=== PATIENT | female | born 1965 | race Caucasian/White ===

== ENCOUNTER → 2016-06-16 | Outpatient (CLI) | payer MEDICARE ==
[~2016-06-16] MED LIST: ATR20T PO; BUDE6HFA IH; CYCL10TA9 PO; DIAZ10TA3 PO; FISH1200 PO; HYDR-2890 PO; MELA1TAB11 PO; METO25TA2 PO; MILN100T PO; ONDAN4ODT PO; PANT40TA PO; QTP100T PO; REMICADE IV; RT-ALBUINH IH; TRZ100T PO; VALE1POW MC; VENL150C PO
--- OUTSIDE RECORDS SUMMARY | 2016-06-16 11:30 | XMS REPORT | Continuity of Care Document ---
Author Author [facility] Organization [facility] Address Unknown Phone Unavailable Care Team Providers Care Crawler Tractor Operator Name Role Phone JOSE RUBALCAVA MD PCP Insurance Providers Payer Name Policy Number Subscriber Name Relationship Wps Medicare [id number] Phil Olmedo 18 Self / Same As Patient Blue Cross [facility] Supp [id number] Phil Olmedo 18 Self / Same As Patient Advance Directives Directive Response Recorded Date/Time Advance Directives No 09/13/15 4:00pm Health Care Power of Dba No 09/13/15 4:00pm Organ Donor No 09/13/15 4:00pm Resuscitation Status Full Code 09/13/15 4:00pm Problems Active Problems Medical Problem Onset Date Status Contusion Unknown Acute skin avulsion Unknown Acute Medications Current Home Medications Medication Dose Units Route Directions Days/Qty Instructions Start Date Cyclobenzaprine Hcl (Flexeril) 10 Mg 1 Each Oral Three Times A Day 0 08/29/13 Venlafaxine Hcl 150 Mg 1 Each Oral Three Times A Day 0 08/29/13 Hydrocodone Bit/Acetaminophen 1 Each 1 Each Oral Four Times Daily for Pain 0 08/29/13 Diazepam 10 Mg 1 Each Oral Three Times A Day for Anxiety 0 08/29/13 Pyridoxine/Melatonin 1 Tab 2 Tab Oral Bedtime 0 08/29/13 Valerian Root 1,000 Gm 1,000 Gm Miscell Daily 0 08/29/13 Pantoprazole Sodium 40 Mg 40 Mg Oral Daily 0 08/29/13 Atorvastatin Calcium 20 Mg 1 Each Oral Daily 0 08/29/13 Metoprolol Tartrate (Lopressor) 25 Mg 0.5 Tab Oral Twice A Day 0 TAKES 1/ 2 OF 25 MG TAB BID (12.5 MG BID) 08/29/13 Milnacipran Hcl 100 Mg 100 Mg Oral Daily 0 08/29/13 Trazodone Hcl 100 Mg 2 Tab Oral Bedtime 0 08/29/13 Quetiapine Fumarate 100 Mg 2 Tab Oral Bedtime 0 08/29/13 Fish Oil/Fat No.8/Hrb Comb.137 1,200 Mg 1,200 Mg Oral Four Times Daily 0 08/29/13 Budesonide/Formoterol Fumarate 10.2 Gm 1 Puff Inhalation Twice A Day 0 08/29/13 Albuterol Sulfate 1 Puff 1 Puff Inhalation Twice A Day 0 08/29/13 [Remicade] Intraven Q 8 Wks 08/29/13 Past Home Medications Medication Directions Ordered Status Ondansetron Hcl 4 Mg Tab, 4 Mg Oral Every 4HRS 06/03/12 Discontinued Social History Social History Problem Response Recorded Date/Time Alcohol Use Denies Use 05/09/2013 2:29am Recreational Drug Use No 05/09/2013 2:29am Recent Foreign Travel No 07/23/2015 1:30pm Smoking Status Never a Smoker 07/23/2015 1:30pm Query Response Start Date Stop Date Smoking Status Never a Smoker Hospital Discharge Instructions No hospital discharge instructions. Plan of Care Prescriptions See Medication Section Functional Status No functional status results. Allergies, Adverse Reactions, Alerts Allergen Type Severity Reaction Status Last Updated Sulfa (Sulfonamide Antibiotics) ([id number]) Allergy Unknown Active Latex Allergy Unknown Active 08/29/13 Immunizations Name Given Type Date of Pneumonia Vaccine 03/07/13 Historical Date of Influenza Vaccine 03/07/13 Historical Vital Signs Acute Vital Signs Vital Response Date/Time Height 5 ft 8 in Weight 204 lb Body Mass Index 31.0 kg/m^2 Results No known relevant diagnostic tests, laboratory data and/or discharge summary. Procedures No known history of procedures. Encounters Encounter Location Arrival/Admit Date Discharge/Depart Date Attending Provider Discharged Recurring [facility] 09/13/15 3:45pm 11:59pm 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
--- NOTE | 2016-06-16 13:24 | Diagnostic Imaging Report ---
PROCEDURE: MR imaging cervical spine without contrast. TECHNIQUE: Multiplanar, multisequence MR imaging of the cervical spine was performed without contrast. INDICATION: Neck pain. FINDINGS: There is satisfactory alignment at the posterior spinal line. The vertebral body heights are preserved. There is disc desiccation at multiple levels. There is normal bone marrow signal seen with no suspicious focal lesion. Minimal chronic appearing reactive changes around the endplate of L5 inferiorly is noted probably secondary to disc degeneration. The foramen magnum is widely patent. The upper spinal canal is widely patent. There is normal signal in the spinal cord. There is multilevel facet joint arthropathy. C2/3: There is minimal disc spur complex with no spinal canal or foraminal stenosis. C3/4: There is a mild disc spur complex with mild central canal stenosis reducing the AP dimension of the canal to 9 mm without cord compression. The foramina demonstrate mild to moderate stenosis on the left and minimal stenosis on the right side. C4/5: There is a spur disc complex seen associated with mild central canal stenosis reducing the AP dimension of the canal to 9.3 mm. No cord compression. The foramina demonstrate moderate stenosis on the left and patent foramen on the right. C5/6: There is a prominent spur disc complex eccentric to the left side and posterior ligamentous hypertrophy, associated with severe spinal canal stenosis reducing the AP dimension of the central canal to 5 mm and associated with moderate cord compression particularly along the left side of the spinal cord. There is no cord signal abnormality however. There is bilateral foraminal stenosis severe on the left and mild on the right side. C6/7: There is prominent spur disc complex and posterior ligamentous hypertrophy with associated moderate to severe spinal canal stenosis. The AP dimension of the central canal is reduced to 6.6 mm. There is minimal cord compression in the central canal and to the left side of the midline. The neural foramina demonstrate severe stenosis of the left and moderate to severe stenosis on the right side. C7/T1: No significant disc herniation, no spinal canal stenosis. There is a suggestion of bilateral moderate foraminal stenosis. IMPRESSION: Multilevel disc and facet degenerative changes worst at C5/6 and C6/7 levels with associated cord compression. No cord signal abnormality. See details above. Report was stat faxed to office of ROMAN Ramos, @ 1:23 PM/jamir. Dictated by: Dictated on workstation # [id number]
== END ==
LOC: RAD 11:26
PROVIDERS: ATTEND Nurse Practitioner Family
DX: M48.02 Spinal stenosis, cervical region (principal)
CPT/HCPCS: 72141

== ENCOUNTER → 2016-07-15 | Outpatient (CLI) | payer MEDICARE ==
--- OUTSIDE RECORDS SUMMARY | 2016-07-15 14:41 | XMS REPORT | Continuity of Care Document ---
Author Author [facility] Organization [facility] Address Unknown Phone Unavailable Care Team Providers Care Pottery Striper Name Role Phone JOSE RUBALCAVA MD PCP Insurance Providers Payer Name Policy Number Subscriber Name Relationship Wps Medicare [id number] Phil Olmedo 18 Self / Same As Patient Blue Cross [facility] Supp [id number] Phil Olmedo 18 Self / Same As Patient Advance Directives Directive Response Recorded Date/Time Advance Directives No 09/13/15 4:00pm Health Care Power of Fruit Dryer No 09/13/15 4:00pm Organ Donor No 09/13/15 [...] Reaction Status Last Updated Sulfa (Sulfonamide Antibiotics) ([id number]) Allergy Unknown Active Latex Allergy Unknown Active [...] Discharge/Depart Date Attending Provider Discharged Recurring [facility] 09/13/15 3:45pm 11:59pm 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
--- NOTE | 2016-07-15 19:00 | Diagnostic Imaging Report ---
Three views of the cervical spine. INDICATION: Fall. Neck pain. FINDINGS: Satisfactory alignment of the cervical spine is seen. The vertebral body heights are preserved. Disc heights are also preserved. Mild anterior osteophytes at the C5-C6 and C6-C7 levels seen. Satisfactory alignment of the lateral masses of C1 and C2 seen. The prevertebral soft tissues appear unremarkable. IMPRESSION: Degenerative anterior osteophytes at the C5-C6 and C6/7 levels. Dictated by: Dictated on workstation # [id number]
== END ==
LOC: RAD 14:36
PROVIDERS: ATTEND Nurse Practitioner Family
DX: S19.9XXA Unspecified injury of neck, initial encounter (principal); M54.2 Cervicalgia; W19.XXXA Unspecified fall, initial encounter; Y99.8 Other external cause status
CPT/HCPCS: 72040

== ENCOUNTER → 2016-07-31 | Outpatient (CLI) | payer MEDICARE ==
--- OUTSIDE RECORDS SUMMARY | 2016-07-31 16:07 | XMS REPORT | Continuity of Care Document ---
Author Author [facility] Organization [facility] Address Unknown Phone Unavailable Care Team Providers Care Funeral Arranger Name Role Phone JOSE RUBALCAVA MD PCP Insurance Providers Payer Name Policy Number Subscriber Name Relationship Wps Medicare [id number] Phil Olmedo 18 Self / Same As Patient Blue Cross [facility] Supp [id number] Phil Olmedo 18 Self / Same As Patient Advance Directives Directive Response Recorded Date/Time Advance Directives No 09/13/15 4:00pm Health Care Power of Edi Programmer No 09/13/15 4:00pm Organ Donor No 09/13/15 [...] Reaction Status Last Updated Sulfa (Sulfonamide Antibiotics) ([id number]) Allergy Unknown Active Latex Allergy Unknown Active [...] Discharge/Depart Date Attending Provider Discharged Recurring [facility] 09/13/15 3:45pm 11:59pm 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
--- NOTE | 2016-07-31 16:50 | Diagnostic Imaging Report ---
Indication: Bilateral ankle pain 3 views of each ankle were obtained. There is no fracture, dislocation or other abnormality seen on either side. Impression: Normal bilateral ankles. Dictated by: Dictated on workstation # [id number]
== END ==
LOC: RAD 16:04
PROVIDERS: ATTEND Nurse Practitioner Family
DX: M25.572 Pain in left ankle and joints of left foot (principal); M25.571 Pain in right ankle and joints of right foot; W19.XXXA Unspecified fall, initial encounter; Y99.8 Other external cause status

== ENCOUNTER → 2016-08-24 | Outpatient (CLI) | payer MEDICARE ==
--- OUTSIDE RECORDS SUMMARY | 2016-08-24 09:55 | XMS REPORT | Continuity of Care Document ---
Author Author [facility] Organization [facility] Address Unknown Phone Unavailable Care Team Providers Care National Sales Executive Name Role Phone JOSE RUBALCAVA MD PCP Insurance Providers Payer Name Policy Number Subscriber Name Relationship Wps Medicare [id number] Phil Olmedo 18 Self / Same As Patient Blue Cross [facility] Supp [id number] Phil Olmedo 18 Self / Same As Patient Advance Directives Directive Response Recorded Date/Time Advance Directives No 09/13/15 4:00pm Health Care Power of Paint Line Production Supervisor No 09/13/15 4:00pm Organ Donor No 09/13/15 [...] Reaction Status Last Updated Sulfa (Sulfonamide Antibiotics) ([id number]) Allergy Unknown Active Latex Allergy Unknown Active [...] Discharge/Depart Date Attending Provider Discharged Recurring [facility] 09/13/15 3:45pm 11:59pm 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
--- NOTE | 2016-08-24 11:43 | Diagnostic Imaging Report ---
PROCEDURE: MRI right joint lower extremity without contrast. TECHNIQUE: Multiplanar, multisequence non contrast-enhanced MRI of the right ankle was accomplished. Indication: Ankle pain after twisting injury. Comparisons: Ankle radiographs of 07/31/2016. Findings: TENDONS: Distal Achilles tendon is normal. There is partial-thickness split longitudinal tear of the peroneus brevis tendon posterior to the lateral malleolus, which is likely chronic in nature as there is no associated peritendinous inflammatory changes. Distal insertion on the base of the fifth metatarsal is normal. The peroneus longus is normal. Posterior tibialis, flexor digitorum longus and flexor hallucis longus tendons are all normal. Anterior extensor tendons of the ankle are normal where visualized. LIGAMENTS: The anterior and posterior inferior tibiofibular ligaments are intact. The anterior talofibular ligament is intact but abnormally thickened, indicative of subacute to chronic injury. Calcaneofibular and posterior talofibular ligaments are normal. The medial collateral ligamentous complex is intact. Spring ligament is normal. BONES AND CARTILAGE: No osteochondral lesion of the talar dome. No fracture or stress fracture. The articular cartilage of the tibiotalar and posterior subtalar joints are normal. SOFT TISSUES: No evidence of plantar fasciitis. No abnormal soft tissue scar/fibrosis within the tarsal canal/sinus tarsi or tarsal tunnel. No ankle joint effusion. There is a very small amount of subcutaneous edema involving both the medial and lateral aspects of ankle. IMPRESSION: 1. The anterior talofibular ligament is intact but thickened, which indicates subacute to chronic injury. No acute ligamentous injury. 2. Short segment of chronic partial-thickness split longitudinal tear of the peroneus brevis at the level of the lateral malleolus. No acute tendinous abnormality about the ankle. 3. No fracture, stress fracture or osseous contusion. Dictated by: Dictated on workstation # [id number]
== END ==
LOC: RAD 09:50
PROVIDERS: ATTEND Nurse Practitioner Family
DX: M25.571 Pain in right ankle and joints of right foot (principal); M25.371 Other instability, right ankle
CPT/HCPCS: 73721

== ENCOUNTER → 2016-09-28 | Outpatient (CLI) | payer MEDICARE ==
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
== END ==
LOC: RAD 13:00
PROVIDERS: ATTEND Pain Medicine Interventional Pain Medicine
DX: M54.16 Radiculopathy, lumbar region (principal)
CPT/HCPCS: 72148

== ENCOUNTER 2016-11-14 19:55 | Outpatient (CLI) | payer MEDICARE | END 2016-11-15 07:29 | disposition home or self-care (01) | LOC: SLEEP 19:55 | PROVIDERS: ATTEND Family Medicine | DX: G47.33 Obstructive sleep apnea (adult) (pediatric) (principal) | CPT/HCPCS: 95811 ==

== ENCOUNTER 2017-04-19 19:31 | Emergency (ER) | payer MEDICARE ==
[~2017-04-19] VITALS: Ht 172.7 cm; Wt 92.5 kg
--- OUTSIDE RECORDS SUMMARY | 2017-04-19 20:02 | XMS REPORT | Continuity of Care Document ---
Author Author [employer] Organization [facility] Address Unknown Phone Unavailable Care Team Providers Care Ship Yard Electrical Person Name Role Phone [employer] Unavailable Unavailable Problems Medications Allergies, Adverse Reactions, Alerts Immunizations Results Vital Signs Encounters Location Location Details Encounter Type Encounter Number Reason For Visit Attending Provider ADM Date DC Date Status Source OUTPATIENT [id number] RADHA HANSON 03/03/2017 Active [facility] OUTPATIENT [id number] RADHA [facility] 03/22/2017 Active [facility] OUTPATIENT [id number] RADHA [facility] 04/09/2017 Active [facility] OUTPATIENT [id number] RADHA HANSON 04/10/20172016 Active [facility] 04/16/2017 Active [facility] OUTPATIENT [id number] 04/16/2017 Active [facility] OUTPATIENT [id number] 04/16/2017 Active [facility] OUTPATIENT [id number] RADHA [facility] 04/16/2017 Active [facility] Procedures Plan of Care Social History Assessment and Plan Family History Value Date Source Advance Directives Order Name Results Value Date Source
--- OUTSIDE RECORDS SUMMARY | 2017-04-19 20:03 | XMS REPORT | Encounter Summary ---
Author Author [facility] Organization [facility] Address Unknown Phone Unavailable Care Team Providers Care Hand Knitter Name Role Phone PCP Unavailable Encounter Details Date Type Department Care Team Description 04/09/2017 Procedure Pass [facility] Radiology [address] [facility] MED [address] [place] [address] Social History Tobacco Use Types Packs/Day Years Used Date Never Smoker Smokeless Tobacco: Never Used Alcohol Use Drinks/Week oz/Week Comments No Sex Assigned at Date Recorded Not on file as of this encounter Plan of Treatment Not on fileas of this encounter Visit Diagnoses Not on filein this encounter
--- OUTSIDE RECORDS SUMMARY | 2017-04-19 20:03 | XMS REPORT | Encounter Summary ---
Author Author [facility] Organization [facility] Address Unknown Phone Unavailable Care Team Providers Care Microsoft Net Developer Name Role Phone PCP Unavailable Encounter Details Date Type Department Care Team Description 04/09/2017 Procedure Pass [facility] Radiology [address] [facility] MED OFF[address] [place] [address] Social History Tobacco Use Types Packs/Day Years Used Date Never Smoker Smokeless Tobacco: Never Used Alcohol Use Drinks/Week oz/Week Comments No Sex Assigned at Date Recorded Not on file as of this encounter Plan of Treatment Not on fileas of this encounter Visit Diagnoses Not on filein this encounter
--- OUTSIDE RECORDS SUMMARY | 2017-04-19 20:03 | XMS REPORT | Encounter Summary ---
Author Author [facility] Organization [facility] Address Unknown Phone Unavailable Care Team Providers Care Screening Specialist Name Role Phone PCP Unavailable Encounter Details Date Type Department Care Team Description 04/09/2017 Procedure Pass [facility] Radiology [address] [place] [address] Social History Tobacco Use Types Packs/Day Years Used Date Never Smoker Smokeless Tobacco: Never Used Alcohol Use Drinks/Week oz/Week Comments No Sex Assigned at Date Recorded Not on file as of this encounter Plan of Treatment Not on fileas of this encounter Visit Diagnoses Not on filein this encounter
--- OUTSIDE RECORDS SUMMARY | 2017-04-19 20:03 | XMS REPORT | Clinical Summary ---
Author Author [facility] Organization [facility] Address Unknown Phone Unavailable Care Team Providers Care Eligibility Analyst Name Role Phone PCP Unavailable Source Comments Some departments are not documenting in the electronic medical record. If you do not see the information that you expected, contact Release of Information in the Health Information Management department at [phone] for further assistance in locating additional records.[facility] Allergies Active Allergy Reactions Severity Noted Date Comments Latex HIVES Medium 04/09/2017 Sulfa (Sulfonamide UNKNOWN Low 04/09/2017 Antibiotics) Current Medications Prescription Sig. Disp. Refills Start End Date Status Date venlafaxine XR (EFFEXOR Take 150 mg by mouth Active XR) 150 mg capsule daily. Take with food. cyclobenzaprine Take 10 mg by mouth three Active (FLEXERIL) 10 mg tablet times daily as needed for Muscle Cramps. HYDROcodone/acetaminophen Take 1 tablet by mouth Active (+) (NORCO) 10/325 mg every 6 hours as needed tablet for Pain diazePAM (VALIUM) 10 mg Take 10 mg by mouth every Active tablet 6 hours as needed for Anxiety. metoprolol tartrate Take 25 mg by mouth twice Active (LOPRESSOR) 25 mg tablet daily. traZODone (DESYREL) 100 Take 100 mg by mouth at Active mg tablet bedtime daily. QUEtiapine (SEROQUEL) 100 Take 100 mg by mouth Active mg tablet twice daily. atorvastatin (LIPITOR) 20 Take 20 mg by mouth Active mg tablet daily. milnacipran(+) (SAVELLA) Take by mouth. Active [address] Take 40 mg by mouth Active (PROTONIX) 40 mg tablet daily. PREDNISONE PO Take by mouth. Active budesonide/formoterol Inhale 2 puffs by mouth Active (SYMBICORT) 160/4.5 mcg into the lungs twice inhalation daily. ACETAMINOPHEN (TYLENOL Take by mouth. Active PO) traMADol (ULTRAM) 50 mg Take 50 mg by mouth every Active tablet 6 hours as needed for Pain. loratadine (CLARITIN) 10 Take 10 mg by mouth every Active mg tablet morning. magnesium oxide (MAG-OX) Take 400 mg by mouth Active 400 mg tablet daily. LACTOBACILLUS ACIDOPHILUS Take by mouth. Active (ACIDOPHILUS PO) INFLIXIMAB (REMICADE IV) Administer through vein. Active niacin ER (NIASPAN) 500 Take 500 mg by mouth Active mg tablet twice daily. Take with food. vitamins, B complex tab Take 1 tablet by mouth Active daily. cyanocobalamin (VITAMIN Inject 1 mL into the Active B-12, RUBRAMIN) 1,000 muscle every 30 days. mcg/mL injection D-MANNOSE PO Take by mouth. Active fish oil- omega 3-DHA/EPA Take 1 capsule by mouth Active 300/1,000 mg capsule daily. cholecalciferol (VITAMIN Take 1,000 Units by mouth Active D-3) 1,000 units tablet daily. calcium carbonate Take 1,250 mg by mouth Active (OS-SHANTE) 260 mg calcium daily. (648 mg) tab MELATONIN PO Take by mouth. Active VALERIAN PO Take by mouth. Active ASCORBATE CALCIUM Take by mouth. 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 Cervical stenosis of spine 04/09/2017 Proximal muscle weakness 04/09/2017 Numbness in feet 04/09/2017 Encounters Date Type Specialty Care Team Description 04/16/2017 [facility]iology Kyrie Larios DO Canceled (Other) Encounter 04/16/2017 [facility] Kyrie Larios DO Arrived Encounter 04/16/2017 [facility] Kyrie Peralta DO Arrived Encounter 04/16/2017 Kyrie Burton DO Unspecified ptosis of Encounter left eyelid 04/10/2017 Kyrie Burton DO Unspecified ptosis of Encounter left eyelid 04/09/2017 Procedure visit Neurology Kyrie Larios DO ERRONEOUS ENCOUNTER--DISREGARD (Primary Dx) 04/09/2017 Office Visit Neurology Kyrie Larios DO Ptosis of left eyelid;Miosis;Cervical stenosis of spine;Proximal muscle weakness;Numbness in feet 04/09/2017 Procedure Pass Radiology 04/09/2017 Procedure Pass Radiology 04/09/2017 Procedure Pass Radiology 04/09/2017 Procedure Pass Radiology 03/19/2017 Orders Only Neurology Kyrie Larios DO Numbness ( Primary Dx) 03/02/2017 Ancillary Radiology Outpatient, Radiologist Diagnosis unknown Orders from Last 3 Months Family History Medical History Relation Name Comments Unknown to Patient Brother Alzheimer's Father Dementia Father Diabetes Father Heart problem Maternal Grandfather Parkinson's Maternal Grandfather Heart problem Maternal Grandmother Hypoglycemia Maternal Grandmother Hypoglycemia Mother Cancer Paternal Grandfather Alzheimer's Paternal Grandmother Dementia Paternal Grandmother Unknown to Patient Sister Unknown to Patient Sister Relation Name Status Comments Brother Alive Father Maternal Grandfather Maternal Grandmother Mother Alive Paternal Grandfather Paternal Grandmother Sister Alive Sister Alive Social History Tobacco Use Types Packs/Day Years Used Date Never Smoker Smokeless Tobacco: Never Used Alcohol Use Drinks/Week oz/Week Comments No Sex Assigned at Date Recorded Not on file Last Filed Vital Signs Vital Sign Reading Time Taken Blood Pressure 125/47 04/09/2017 3:36 PM CDT Pulse 100 04/09/2017 3:36 PM CDT Temperature 37.1 C (98.7 F) 04/09/2017 3:36 PM CDT Respiratory Rate 16 04/09/2017 3:36 PM CDT Oxygen Saturation 93% 04/09/2017 3:36 PM CDT Inhaled Oxygen - - Concentration Weight 91.6 kg (202 lb) 04/09/2017 1:58 PM CDT Height 175.3 cm (5' 9") 04/09/2017 1:58 PM CDT Body Mass Index 29.83 04/09/2017 1:58 PM CDT Plan of Treatment Health Maintenance Due Date Last Done Comments PHYSICAL (COMPREHENSIVE) 08/25/1974 EXAM PERTUSSIS VACCINE 08/25/1978 TETANUS VACCINE 08/25/1984 CERVICAL CANCER SCREENING 08/25/1997 BREAST CANCER SCREENING 2007 INFLUENZA VACCINE 01/05/2017 Results * MRI C-SPINE WO CONTRAST (04/16/2017 6:43 PM) Specimen Performing Laboratory [facility] RES[facility] Impressions 1. Unremarkable MRI of brain. 2. Degenerative disc disease is most notable at C5-6, C6-7. 2. Facet arthrosis most notable on the left side C2-3, C3-4, C4-5, and C7-T1. Because of this and uncovertebral joint hypertrophy, this results in foraminal narrowing as described. Finalized by Chevy Esparza M.D. on 04/19/2017 8:47 AM. Dictated by Chevy Esparza M.D. on 04/19/2017 8:14 AM. Narrative MRI brain and cervical spine Clinical history: Ptosis, miosis, cervical stenosis Comparison study: CT angiogram of same day, MRI cervical spine degeneration 2016 Technique: Multiplanar and multisequence imaging of the brain and cervical spine is obtained without contrast. Findings: Brain: No mass, mass effect, or midline shift is identified. The ventricles and extra-axial spaces are within normal limits. No restricted diffusion is identified to suggest a recent infarct. Cerebellum and brainstem are normal. Vascular flow voids around the [place] normal. Dural contents are also unremarkable. Cervical spine: The cervical vertebral body heights, bone marrow signal, craniocervical junction and cervical cord, epidural spaces, and paraspinous soft tissues are within normal limits. There is slight reversal of normal cervical lordosis. Mild 3 mm anterolisthesis of C4 on C5 is noted from facet arthrosis. There is moderate left-sided facet arthrosis from C2-3 through C4-5 and at C7-T1. C1-C2 C2-3, and C3-4: No spinal stenosis or foraminal narrowing. C4-5: Left facet and uncovertebral joint hypertrophy results in moderate left foraminal narrowing without spinal stenosis. C5-6: Mild disc space narrowing with mild posterior disc osteophyte and left uncovertebral joint hypertrophy results in mild central spinal stenosis and mild left foraminal narrowing. C6-7: Mild disc space narrowing with mild posterior disc osteophyte complex with left uncovertebral joint hypertrophy results in mild central spinal stenosis and left foraminal narrowing. C7-T1: Moderate left uncovertebral joint hypertrophy. No spinal stenosis identified. There is mild left foraminal narrowing. Procedure Note Interface, Radiant Results - 04/19/2017 8:50 AM WELD ENGINEER MRI brain and cervical spine Clinical history: Ptosis, miosis, cervical stenosis Comparison study: CT angiogram of same day, MRI cervical spine degeneration 2017 Technique: Multiplanar and multisequence imaging of the brain and cervical spine is obtained without contrast. Findings: Brain: No mass, mass effect, or midline shift is identified. The ventricles and extra-axial spaces are within normal limits. No restricted diffusion is identified to suggest a recent infarct. Cerebellum and brainstem are normal. Vascular flow voids around the [place] normal. Dural contents are also unremarkable. Cervical spine: The cervical vertebral body heights, bone marrow signal, craniocervical junction and cervical cord, epidural spaces, and paraspinous soft tissues are within normal limits. There is slight reversal of normal cervical lordosis. Mild 3 mm anterolisthesis of C4 on C5 is noted from facet arthrosis. There is moderate left-sided facet arthrosis from C2-3 through C4-5 and at C7-T1. C1-C2 C2-3, and C3-4: No spinal stenosis or foraminal narrowing. C4-5: Left facet and uncovertebral joint hypertrophy results in moderate left foraminal narrowing without spinal stenosis. C5-6: Mild disc space narrowing with mild posterior disc osteophyte and left uncovertebral joint hypertrophy results in mild central spinal stenosis and mild left foraminal narrowing. C6-7: Mild disc space narrowing with mild posterior disc osteophyte complex with left uncovertebral joint hypertrophy results in mild central spinal stenosis and left foraminal narrowing. C7-T1: Moderate left uncovertebral joint hypertrophy. No spinal stenosis identified. There is mild left foraminal narrowing. IMPRESSION 1. Unremarkable MRI of brain. 2. Degenerative disc disease is most notable at C5-6, C6-7. 2. Facet arthrosis most notable on the left side C2-3, C3-4, C4-5, and C7-T1. Because of this and uncovertebral joint hypertrophy, this results in foraminal narrowing as described. Finalized by Chevy Esparza M.D. on 04/19/2017 8:47 AM. Dictated by Chevy Esparza M.D. on 04/19/2017 8:14 AM. * MRI HEAD WO CONTRAST (04/16/2017 6:43 PM) Specimen Performing Laboratory [facility] RES[facility] Impressions 1. Unremarkable MRI of brain. 2. Degenerative disc disease is most notable at C5-6, C6-7. 2. Facet arthrosis most notable on the left side C2-3, C3-4, C4-5, and C7-T1. Because of this and uncovertebral joint hypertrophy, this results in foraminal narrowing as described. Finalized by Chevy Esparza M.D. on 04/19/2017 8:47 AM. Dictated by Chevy Esparza M.D. on 04/19/2017 8:14 AM. Narrative MRI brain and cervical spine Clinical history: Ptosis, miosis, cervical stenosis Comparison study: CT angiogram of same day, MRI cervical spine degeneration 2017 Technique: Multiplanar and multisequence imaging of the brain and cervical spine is obtained without contrast. Findings: Brain: No mass, mass effect, or midline shift is identified. The ventricles and extra-axial spaces are within normal limits. No restricted diffusion is identified to suggest a recent infarct. Cerebellum and brainstem are normal. Vascular flow voids around the [place] normal. Dural contents are also unremarkable. Cervical spine: The cervical vertebral body heights, bone marrow signal, craniocervical junction and cervical cord, epidural spaces, and paraspinous soft tissues are within normal limits. There is slight reversal of normal cervical lordosis. Mild 3 mm anterolisthesis of C4 on C5 is noted from facet arthrosis. There is moderate left-sided facet arthrosis from C2-3 through C4-5 and at C7-T1. C1-C2 C2-3, and C3-4: No spinal stenosis or foraminal narrowing. C4-5: Left facet and uncovertebral joint hypertrophy results in moderate left foraminal narrowing without spinal stenosis. C5-6: Mild disc space narrowing with mild posterior disc osteophyte and left uncovertebral joint hypertrophy results in mild central spinal stenosis and mild left foraminal narrowing. C6-7: Mild disc space narrowing with mild posterior disc osteophyte complex with left uncovertebral joint hypertrophy results in mild central spinal stenosis and left foraminal narrowing. C7-T1: Moderate left uncovertebral joint hypertrophy. No spinal stenosis identified. There is mild left foraminal narrowing. Procedure Note Interface, Radiant Results - 04/19/2017 8:50 AM WELD ENGINEER MRI brain and cervical spine Clinical history: Ptosis, miosis, cervical stenosis Comparison study: CT angiogram of same day, MRI cervical spine degeneration 2017 Technique: Multiplanar and multisequence imaging of the brain and cervical spine is obtained without contrast. Findings: Brain: No mass, mass effect, or midline shift is identified. The ventricles and extra-axial spaces are within normal limits. No restricted diffusion is identified to suggest a recent infarct. Cerebellum and brainstem are normal. Vascular flow voids around the [place] normal. Dural contents are also unremarkable. Cervical spine: The cervical vertebral body heights, bone marrow signal, craniocervical junction and cervical cord, epidural spaces, and paraspinous soft tissues are within normal limits. There is slight reversal of normal cervical lordosis. Mild 3 mm anterolisthesis of C4 on C5 is noted from facet arthrosis. There is moderate left-sided facet arthrosis from C2-3 through C4-5 and at C7-T1. C1-C2 C2-3, and C3-4: No spinal stenosis or foraminal narrowing. C4-5: Left facet and uncovertebral joint hypertrophy results in moderate left foraminal narrowing without spinal stenosis. C5-6: Mild disc space narrowing with mild posterior disc osteophyte and left uncovertebral joint hypertrophy results in mild central spinal stenosis and mild left foraminal narrowing. C6-7: Mild disc space narrowing with mild posterior disc osteophyte complex with left uncovertebral joint hypertrophy results in mild central spinal stenosis and left foraminal narrowing. C7-T1: Moderate left uncovertebral joint hypertrophy. No spinal stenosis identified. There is mild left foraminal narrowing. IMPRESSION 1. Unremarkable MRI of brain. 2. Degenerative disc disease is most notable at C5-6, C6-7. 2. Facet arthrosis most notable on the left side C2-3, C3-4, C4-5, and C7-T1. Because of this and uncovertebral joint hypertrophy, this results in foraminal narrowing as described. Finalized by Chevy Esparza M.D. on 04/19/2017 8:47 AM. Dictated by Chevy Esparza M.D. on 04/19/2017 8:14 AM. * CTA NECK WO/W CONTRAST+POST P (04/16/2017 3:13 PM) Specimen Performing Laboratory [facility] RESULTS Impressions CTA head: Unremarkable CTA of the head. CTA neck: 1. Unremarkable CTA of the carotid and vertebral arteries. 2. Cervical degenerative disc disease and facet arthropathy By my electronic signature, I attest that I have personally reviewed the images for this examination and formulated the interpretations and opinions expressed in this report Finalized by Otto Martínez M.D. on 04/16/2017 4:33 PM. Dictated by Sima Rivera M.D. on 04/16/2017 4:07 PM. Narrative CTA HEAD AND NECK HISTORY: miosis and ptosis, proximal muscle weakness, numbness in feet. TECHNIQUE: Multiple contiguous axial images were obtained of the head and neck with IV contrast. Precontrast axial images were also obtained of the brain. CTA maximum density projection images were obtained with image post processing. IV CONTRAST: [id number] COMPARISON: None FINDINGS: CTA head: The ventricles are normal in size. The [place] white matter interfaces are maintained. There is no midline shift or mass effect. There is no evidence of acute intracranial hemorrhage. The basal cisterns are patent. The calvarium is intact. The distal internal carotid, vertebral, and basilar arteries are patent without focal narrowing or occlusion. The anterior, middle, and posterior cerebral arteries are patent without focal narrowing. No aneurysm or arteriovenous malformation is identified. CTA neck: The aortic arch vessel origins are widely patent. The common carotid and cervical portions of the internal carotid and vertebral arteries are patent without focal narrowing according to NASCET criteria. No aneurysm, AVM, or dissection is identified. The cervical soft tissues are unremarkable. The paranasal sinus and mastoid air cells are clear. The lung apices are clear. Mild cervical spondylosis and reversal of cervical lordosis. There are mild posterior disc osteophyte complexes at C5-6 and C6-7. There is facet arthropathy in the cervical spine greater on the left. Procedure Note Interface, Radiant Results - 04/16/2017 4:36 PM WELD ENGINEER CTA HEAD AND NECK HISTORY: miosis and ptosis, proximal muscle weakness, numbness in feet. TECHNIQUE: Multiple contiguous axial images were obtained of the head and neck with IV contrast. Precontrast axial images were also obtained of the brain. CTA maximum density projection images were obtained with image post processing. IV CONTRAST: [id number] COMPARISON: None FINDINGS: CTA head: The ventricles are normal in size. The [place] white matter interfaces are maintained. There is no midline shift or mass effect. There is no evidence of acute intracranial hemorrhage. The basal cisterns are patent. The calvarium is intact. The distal internal carotid, vertebral, and basilar arteries are patent without focal narrowing or occlusion. The anterior, middle, and posterior cerebral arteries are patent without focal narrowing. No aneurysm or arteriovenous malformation is identified. CTA neck: The aortic arch vessel origins are widely patent. The common carotid and cervical portions of the internal carotid and vertebral arteries are patent without focal narrowing according to NASCET criteria. No aneurysm, AVM, or dissection is identified. The cervical soft tissues are unremarkable. The paranasal sinus and mastoid air cells are clear. The lung apices are clear. Mild cervical spondylosis and reversal of cervical lordosis. There are mild posterior disc osteophyte complexes at C5-6 and C6-7. There is facet arthropathy in the cervical spine greater on the left. IMPRESSION CTA head: Unremarkable CTA of the head. CTA neck: 1. Unremarkable CTA of the carotid and vertebral arteries. 2. Cervical degenerative disc disease and facet arthropathy By my electronic signature, I attest that I have personally reviewed the images for this examination and formulated the interpretations and opinions expressed in this report Finalized by Otto Martínez M.D. on 04/16/2017 4:33 PM. Dictated by Sima Rivera M.D. on 04/16/2017 4:07 PM. * CTA HEAD WO/W CONTR+POST PRO (04/16/2017 3:13 PM) Specimen Performing Laboratory [facility] RES[facility] Impressions CTA head: Unremarkable CTA of the head. CTA neck: 1. Unremarkable CTA of the carotid and vertebral arteries. 2. Cervical degenerative disc disease and facet arthropathy By my electronic signature, I attest that I have personally reviewed the images for this examination and formulated the interpretations and opinions expressed in this report Finalized by Otto Martínez M.D. on 04/16/2017 4:33 PM. Dictated by Sima Rivera M.D. on 04/16/2017 4:07 PM. Narrative CTA HEAD AND NECK HISTORY: miosis and ptosis, proximal muscle weakness, numbness in feet. TECHNIQUE: Multiple contiguous axial images were obtained of the head and neck with IV contrast. Precontrast axial images were also obtained of the brain. CTA maximum density projection images were obtained with image post processing. IV CONTRAST: [id number] COMPARISON: None FINDINGS: CTA head: The ventricles are normal in size. The [place] white matter interfaces are maintained. There is no midline shift or mass effect. There is no evidence of acute intracranial hemorrhage. The basal cisterns are patent. The calvarium is intact. The distal internal carotid, vertebral, and basilar arteries are patent without focal narrowing or occlusion. The anterior, middle, and posterior cerebral arteries are patent without focal narrowing. No aneurysm or arteriovenous malformation is identified. CTA neck: The aortic arch vessel origins are widely patent. The common carotid and cervical portions of the internal carotid and vertebral arteries are patent without focal narrowing according to NASCET criteria. No aneurysm, AVM, or dissection is identified. The cervical soft tissues are unremarkable. The paranasal sinus and mastoid air cells are clear. The lung apices are clear. Mild cervical spondylosis and reversal of cervical lordosis. There are mild posterior disc osteophyte complexes at C5-6 and C6-7. There is facet arthropathy in the cervical spine greater on the left. Procedure Note Interface, Radiant Results - 04/16/2017 4:36 PM WELD ENGINEER CTA HEAD AND NECK HISTORY: miosis and ptosis, proximal muscle weakness, numbness in feet. TECHNIQUE: Multiple contiguous axial images were obtained of the head and neck with IV contrast. Precontrast axial images were also obtained of the brain. CTA maximum density projection images were obtained with image post processing. IV CONTRAST: [id number] COMPARISON: None FINDINGS: CTA head: The ventricles are normal in size. The browne white matter interfaces are maintained. There is no midline shift or mass effect. There is no evidence of acute intracranial hemorrhage. The basal cisterns are patent. The calvarium is intact. The distal internal carotid, vertebral, and basilar arteries are patent without focal narrowing or occlusion. The anterior, middle, and posterior cerebral arteries are patent without focal narrowing. No aneurysm or arteriovenous malformation is identified. CTA neck: The aortic arch vessel origins are widely patent. The common carotid and cervical portions of the internal carotid and vertebral arteries are patent without focal narrowing according to NASCET criteria. No aneurysm, AVM, or dissection is identified. The cervical soft tissues are unremarkable. The paranasal sinus and mastoid air cells are clear. The lung apices are clear. Mild cervical spondylosis and reversal of cervical lordosis. There are mild posterior disc osteophyte complexes at C5-6 and C6-7. There is facet arthropathy in the cervical spine greater on the left. IMPRESSION CTA head: Unremarkable CTA of the head. CTA neck: 1. Unremarkable CTA of the carotid and vertebral arteries. 2. Cervical degenerative disc disease and facet arthropathy By my electronic signature, I attest that I have personally reviewed the images for this examination and formulated the interpretations and opinions expressed in this report Finalized by Otto Martínez M.D. on 04/16/2017 4:33 PM. Dictated by Sima Rivera M.D. on 04/16/2017 4:07 PM. * GLUCOSE ASIF-2 HR (04/16/2017 12:36 PM) Component Value Ref Range Glucose, 2 Hr 127 MG/DL Specimen Performing Laboratory [facility]IN LAB [address] [place] [id number] * GLUCOSE ASIF-1 HR (04/16/2017 11:36 AM) Component Value Ref Range Glucose, 1 Hr 130 MG/DL Specimen Performing Laboratory [facility] [address] [place] [id number] * GLUCOSE, FASTING (04/16/2017 10:36 AM) Component Value Ref Range Glucose Fasting 104 (H) 70 - 100 MG/DL Specimen Performing Laboratory [facility] [address] [place] [id number] * PYRIDOXAL 5 PHOSPHATE (04/10/2017 12:04 PM) Component Value Ref Range Pyridoxal 5 Phosphate 23 Comment: Reference range: 5 to 50 Unit: mcg/L ADDITIONAL INFORMATION This test was developed and its performance characteristics determined by [facility] in a manner consistent with CLIA requirements. This test has not been cleared or approved by the U.S. Food and Drug Administration. [facility], [address], [place] [address] Specimen Performing Laboratory Blood REFERENCE LAB * HIV-1/2 ANTIGEN/ANTIBODY SCREEN (04/10/2017 12:04 PM) Component Value Ref Range HIV 1 and 2 AG AB Screen NEG NEG-NEG Specimen Performing Laboratory Blood MAIN LAB [address] [place] [id number] * SYPHILIS AB SCREEN (04/10/2017 12:04 PM) Component Value Ref Range Syphilis AB, Total NEG NEG-NEG Comment: Negative EIA: Negative results indicate no past or present syphilis infection. Early infection can not be excluded. Specimen Performing Laboratory Blood MAIN LAB [address] [place] [address] [id number] * TSH WITH FREE T4 REFLEX (04/10/2017 12:04 PM) Component Value Ref Range TSH 1.217 0.35 - 5.00 MCU/ML Specimen Performing Laboratory Blood MAIN LAB [address] [place] [address] * ANTI-NUCLEAR AB(KYUNG)-QUANT (04/10/2017 12:04 PM) Component Value Ref Range KYUNG Titer/Pattern 640 (H)Comment: HOMOGENEOUS <80 Specimen Performing Laboratory MAIN LAB [address] [place] [address] * RHEUMATOID FACTOR (RF) (04/10/2017 12:04 PM) Component Value Ref Range Rheum Factor Screen <20 <24 IU/mL Specimen Performing Laboratory Blood MAIN LAB [address] [place] [address] * METHYLMALONIC ACID QUANT (04/10/2017 12:04 PM) Component Value Ref Range Methylmalonic Acid 0.12 Comment: Reference range: <=0.40 Unit: nmol/mL ADDITIONAL INFORMATION This test was developed and its performance characteristics determined by [facility] in a manner consistent with CLIA requirements. This test has not been cleared or approved by the U.S. Food and Drug Administration. [facility] Specimen Performing Laboratory Blood REFERENCE LAB * IMMUNOFIXATION, SERUM (IFES) (04/10/2017 12:04 PM) Component Value Ref Range Immuno Fix-Serum NO PARAPROTEIN SEEN Pathologist Signature INTERPRETED BY SONAL MULLEN M.D. By the PATH SIGNATURE ABOVE, I attest that I have personally formulated the final interpretation expressed in this report and that the above diagnosis is based upon my examination of the slides and/or other material indicated in this report. Specimen Performing Laboratory Blood MAIN LAB [address] [place] [address] * ANTI-NEUT CYTO AB (ANCA/PANCA) (04/10/2017 12:04 PM) Component Value Ref Range C-ANCA <20,NEGATIVE TITER P-ANCA <20,NEGATIVE TITER Specimen Performing Laboratory Blood MAIN LAB [address] [place] [address] * ANGIOTENSIN CONV ENZYME (DEMETRIA) (04/10/2017 12:04 PM) Component Value Ref Range Angiotensin Convert 25 Enzyme Comment: Reference range: 8 to 53 Unit: U/L [facility] Specimen Performing Laboratory Blood REFERENCE LAB * ACETYLCH REC PANL AB(ACHRP) (04/10/2017 12:04 PM) Component Value Ref Range Acetylcholine binding AB 0.0 Comment: Reference range: 0.0 to 0.4 Unit: nmol/L INTERPRETIVE INFORMATION: Acetylcholine Binding Ab Negative ....... 0.0 - 0.4 nmol/L Positive ....... 0.5 nmol/L or greater Approximately 85-90 percent of patients with myasthenia gravis (MG) express antibodies to the acetylcholine receptor (AChR), which can be divided into binding, blocking, and modulating antibodies. Binding antibody can activate complement and lead to loss of AChR. Blocking antibody may impair binding of acetylcholine to the receptor, leading to poor muscle contraction. Modulating antibody causes receptor endocytosis resulting in loss of AChR expression, which correlates most closely with clinical severity of disease. Approximately 10-15 percent of individuals with confirmed myasthenia gravis have no measurable binding, blocking, or modulating antibodies. Test developed and characteristics determined by [facility]. See Compliance Statement B: [facility]/CS Acetylcholine Blocking AB 0 Comment: Reference range: 0 to 26 Unit: % INTERPRETIVE INFORMATION: Acetylcholine Blocking Ab Negative ............ 0-26 percent blocking Indeterminate ....... 27-41 percent blocking Positive ............ 42 percent or greater blocking Approximately 85-90 percent of patients with myasthenia gravis (MG) express antibodies to the acetylcholine receptor (AChR), which can be divided into binding, blocking, and modulating antibodies. Binding antibody can activate complement and lead to loss of AChR. Blocking antibody may impair binding of acetylcholine to the receptor, leading to poor muscle contraction. Modulating antibody causes receptor endocytosis resulting in loss of AChR expression, which correlates most closely with clinical severity of disease. Approximately 10-15 percent of individuals with confirmed myasthenia gravis have no measurable binding, blocking, or modulating antibodies. Test developed and characteristics determined by [facility]. See Compliance Statement B: [email or web address]/CS Performed by [facility], [address] [place] [address] [email or web address], Jacob Bhat MD, Lab. Director Specimen Performing Laboratory Blood REFERENCE LAB * SED RATE (04/10/2017 12:04 PM) Component Value Ref Range Sed Rate -ESR <1 0 - 20 MM/HR Specimen Performing Laboratory Blood [facility] MAIN [facility] [address] [place] [address] * CBC AND DIFF (04/10/2017 12:04 PM) Component Value Ref Range White Blood Cells 7.2 4.5 - 11.0 K/UL RBC 3.67 (L) 4.0 - 5.0 M/UL Hemoglobin 11.7 (L) 12.0 - 15.0 GM/DL Hematocrit 35.9 (L) 36 - 45 % MCV 98.0 80 - 100 FL MCH 32.0 26 - 34 PG MCHC 32.6 32.0 - 36.0 G/DL RDW 13.1 11 - 15 % Platelet Count 211 150 - 400 K/UL MPV 7.1 7 - 11 FL Neutrophils 63 41 - 77 % Lymphocytes 27 24 - 44 % Monocytes 8 4 - 12 % Eosinophils 2 0 - 5 % Basophils 0 0 - 2 % Absolute Neutrophil Count 4.50 1.8 - 7.0 K/UL Absolute Lymph Count 1.90 1.0 - 4.8 K/UL Absolute Monocyte Count 0.60 0 - 0.80 K/UL Absolute Eosinophil Count 0.10 0 - 0.45 K/UL Absolute Basophil Count 0.00 0 - 0.20 K/UL Specimen Performing Laboratory Blood [facility] LAB [address] [place] [address] * ANTI-NUCLEAR ANTIBODY(KYUNG) (04/10/2017 12:04 PM) Component Value Ref Range KYUNG Screen SEE TITER <80 TITER Specimen Performing Laboratory Blood [facility] [address] [place] [address] * ELECTROPHORESIS-SERUM PROTEIN (04/10/2017 12:04 PM) Component Value Ref Range Total Protein-SEP 6.6 6.0 - 8.0 G/DL Albumin % 63.2 48 - 68 % Alpha 1 % 4.7 2 - 6 % Alpha 2 % 9.1 5 - 15 % Beta %,Serum 12.2 9 - 17 % Gamma % 10.8 9 - 21 % Interpretation - SEP NORMAL ELECTROPHORETIC PATTERN Pathologist Signature INTERPRETED BY SONAL MULLEN M.D. By the PATH SIGNATURE ABOVE, I attest that I have personally formulated the final interpretation expressed in this report and that the above diagnosis is based upon my examination of the slides and/or other material indicated in this report. Specimen Performing Laboratory Blood [facility] LAB [address] [place] [address] * VITAMIN B12 (04/10/2017 12:04 PM) Component Value Ref Range Vitamin B12 462 180 - 914 PG/ML Specimen Performing Laboratory Blood [facility] [address] [place] [address] * CREATINE KINASE-CPK (04/10/2017 12:04 PM) Component Value Ref Range Creatine Kinase 118 21 - 215 U/L Specimen Performing Laboratory Blood [facility] MAIN [facility] [address] [place] [address] * COMPREHENSIVE METABOLIC PANEL (04/10/2017 12:04 PM) Component Value Ref Range Sodium 140 137 - 147 MMOL/L Potassium 3.8 3.5 - 5.1 MMOL/L Chloride 105 98 - 110 MMOL/L Glucose 101 (H) 70 - 100 MG/DL Blood Urea Nitrogen 16 7 - 25 MG/DL Creatinine 0.82 0.4 - 1.00 MG/DL Calcium 9.4 8.5 - 10.6 MG/DL Total Protein 6.8 6.0 - 8.0 G/DL Total Bilirubin 0.3 0.3 - 1.2 MG/DL Albumin 4.3 3.5 - 5.0 G/DL Alk Phosphatase 51 25 - 110 U/L AST (SGOT) 21 7 - 40 U/L CO2 27 21 - 30 MMOL/L ALT (SGPT) 27 7 - 56 U/L Anion Gap 8 3 - 12 eGFR Non >60 >60 mL/min Comment: The eGFR is not validated for use in drug dosing adjustments. Continue to use estimated creatinine clearance per dosing reference text. Please contact the Clinical Pharmacist for questions. eGFR >60 >60 mL/min Comment: The eGFR is not validated for use in drug dosing adjustments. Continue to use estimated creatinine clearance per dosing reference text. Please contact the Clinical Pharmacist for questions. Specimen Performing Laboratory Blood [facility]IN [facility] [address] [place] [address] from Last 3 Months
--- OUTSIDE RECORDS SUMMARY | 2017-04-19 20:03 | XMS REPORT | Encounter Summary ---
Author Author [facility] Organization [facility] Address Unknown Phone Unavailable Care Team Providers Care Assistant Producer Name Role Phone PCP Unavailable Encounter Details Date Type Department Care Team Description 04/09/2017 Procedure Pass [facility] Radiology [address] [place] [address] Social History Tobacco Use Types Packs/Day Years Used Date Never Smoker Smokeless Tobacco: Never Used Alcohol Use Drinks/Week oz/Week Comments No Sex Assigned at Date Recorded Not on file as of this encounter Plan of Treatment Not on fileas of this encounter Visit Diagnoses Not on filein this encounter
--- OUTSIDE RECORDS SUMMARY | 2017-04-19 20:04 | XMS REPORT | Encounter Summary ---
Author Author [facility] Organization [facility] Address Unknown Phone Unavailable Care Team Providers Care Superintendent Seed Mill Name Role Phone PCP Unavailable Reason for Referral * Radiology Services Status Reason Specialty Diagnoses / Referred By Referred To Procedures Contact Contact No Auth Needed Radiology Diagnoses Kyrie Larios Ct Ptosis of left L, DO [address] eyelid [address] [place], [place] Cervical MS 2012 [address] stenosis [place], [place] Phone: spine [phone] Proximal muscle Phone: weakness [phone] Numbness in feet Fax: P [phone] rocedures CTA NECK WO/W CONTRAST+POST P * Radiology Services Status Reason Specialty Diagnoses / Referred By Referred To Procedures Contact Contact No Auth Needed Radiology Diagnoses Kyrie Larios Ct Ptosis of left L, DO [address] eyelid [address] [place], [place] Cervical MS 2012 [address] stenosis [place], [place] Phone: spine [phone] Proximal muscle Phone: weakness [phone] Numbness in feet Fax: P [phone] rocedures CTA NECK WO/W CONTRAST+POST P * Radiology Services Status Reason Specialty Diagnoses / Referred By Referred To Procedures Contact Contact No Auth Needed Radiology Diagnoses Kyrie Larios [address] Ct Ptosis of left L, DO [address] eyelid [address] [place], [place] Cervical MS 2012 [address] stenosis [place], [place] Phone: spine [phone] Proximal muscle Phone: weakness [phone] Numbness in feet Fax: P [phone] rocedures CTA HEAD WO/W CONTR+POST PRO * Radiology Services Status Reason Specialty Diagnoses / Referred By Referred To Procedures Contact Contact No Auth Needed Radiology Diagnoses Kyrie Larios2 Ct Ptosis of left L, DO [address] eyelid [address] [place], [place] Cervical MS 2012 [address] stenosis [place] Phone: spine [phone] Proximal muscle Phone: weakness [phone] Numbness in feet Fax: P [phone] rocedures CTA HEAD WO/W CONTR+POST PRO Reason for Visit * Radiology Services Status Reason Specialty Diagnoses / Referred By Referred To Procedures Contact Contact No Auth Needed Radiology Diagnoses Kyrie Larios [address] Ct Ptosis of left L, DO [address] eyelid [address] [place], [place] Cervical MS 2011 [address] stenosis [place] Phone: spine [phone] Proximal muscle Phone: weakness [phone] Numbness in feet Fax: P [phone] rocedures CTA HEAD WO/W CONTR+POST PRO Encounter Details Date Type Department Care Team Description 04/16/2017 Hospital [facility] Ric Kyrie DO Callie Arrived Encounter Hospital Radiology [address] MED MS [address] [place] [address] [address] FLO[address] [phone] [place] [address] [phone] Social History Tobacco Use Types Packs/Day Years Used Date Never Smoker Smokeless Tobacco: Never Used Alcohol Use Drinks/Week oz/Week Comments No Sex Assigned at Date Recorded Not on file as of this encounter Plan of Treatment Not on fileas of this encounter Results * CTA NECK WO/W CONTRAST+POST P (04/16/2017 [...] Interface, Radiant Results - 04/16/2017 4:36 PM RASPER MACHINE OPERATOR CTA HEAD AND NECK HISTORY: miosis and [...] Interface, Radiant Results - 04/16/2017 4:36 PM RASPER MACHINE OPERATOR CTA HEAD AND NECK HISTORY: miosis and [...] Sima Rivera M.D. on 04/16/2017 4:07 PM. 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 sodium chloride PF 0.9% injection 50 mL Given 04/16/2017 50 mL 50 mL, Intravenous, ONCE, 1 dose, Fri 15:08 RASPER MACHINE OPERATOR 04/16/17 at 1515, Intra-procedure (IR) in this encounter
--- OUTSIDE RECORDS SUMMARY | 2017-04-19 20:04 | XMS REPORT | Encounter Summary ---
Author Author [facility] Organization [facility] Address Unknown Phone Unavailable Care Team Providers Care Legal Transcriptionist Name Role Phone PCP Unavailable Reason for Referral * Radiology Services Status Reason Specialty Diagnoses / Referred By Referred To Procedures Contact Contact No Auth Needed Radiology Diagnoses Kyrie Larios Gen Radiology Ptosis of left L, DO [address] eyelid [address] [place], [place] Cervical MS 2012 [address] stenosis [place], [place] Phone: spine [phone] Proximal muscle Phone: weakness [phone] Numbness in feet Fax: P [phone] rocedures MRI C-SPINE WO CONTRAST * Radiology Services Status Reason Specialty Diagnoses / Referred By Referred To Procedures Contact Contact No Auth Needed Radiology Diagnoses Kyrie Larios Gen Radiology Ptosis of left L, DO [address] eyelid [address] [place], [place] Cervical MS 2012 [address] stenosis [place], [place] Phone: spine [phone] Proximal muscle Phone: weakness [phone] Numbness in feet Fax: P [phone] rocedures MRI C-SPINE WO CONTRAST Reason for Visit * Radiology Services Status Reason Specialty Diagnoses / Referred By Referred To Procedures Contact Contact No Auth Needed Radiology Diagnoses Kyrie Larios Gen Radiology Ptosis of left L, DO [address] eyelid [address] [place], [place] Cervical MS 2012 [address] stenosis [place], [place] Phone: spine [phone] Proximal muscle Phone: weakness [phone] Numbness in feet Fax: P [phone] rocedures MRI C-SPINE WO CONTRAST Encounter Details Date Type Department Care Team Description 04/16/2017 Hospital [facility] Kyrie Larios DO Canceled (Other) Encounter [facility] Radiology [address] MS [address] [place] [address] [place] [address] [phone] Social History Tobacco Use Types Packs/Day Years Used Date Never Smoker Smokeless Tobacco: Never Used Alcohol Use Drinks/Week oz/Week Comments No Sex Assigned at Date Recorded Not on file as of this encounter Plan of Treatment Not on fileas of this encounter Results * MRI C-SPINE WO CONTRAST (04/16/2017 [...] are normal. Vascular flow voids around the [place] normal. Dural contents are also [...] Interface, Radiant Results - 04/19/2017 8:50 AM ELECTRICAL CONTACTS ADJUSTER MRI brain and cervical spine Clinical history: [...] are normal. Vascular flow voids around the [place] normal. Dural contents are also [...] Chevy Esparza M.D. on 04/19/2017 8:14 AM. 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
--- OUTSIDE RECORDS SUMMARY | 2017-04-19 20:04 | XMS REPORT | Encounter Summary ---
Author Author [facility] Organization [facility] Address Unknown Phone Unavailable Care Team Providers Care Pot Puller Name Role Phone PCP Unavailable Encounter Details Date Type Department Care Team Description 04/16/2017 Hospital [facility] Kyrie Larios DO Unspecified ptosis of Encounter [address] [place] [address] MS [address] [place] [address] [phone] Social History Tobacco Use Types Packs/Day Years Used Date Never Smoker Smokeless Tobacco: Never Used Alcohol Use Drinks/Week oz/Week Comments No Sex Assigned at Date Recorded Not on file as of this encounter Plan of Treatment Not on fileas of this encounter Results * GLUCOSE ASIF-2 HR (04/16/2017 12:36 PM) Component Value Ref Range Glucose, 2 Hr 127 MG/DL Specimen Performing Laboratory Blood [facility] [address] [place] [address] * GLUCOSE ASIF-1 HR (04/16/2017 11:36 AM) Component Value Ref Range Glucose, 1 Hr 130 MG/DL Specimen Performing Laboratory Blood [facility] [address] [place] [address] * GLUCOSE, FASTING (04/16/2017 10:36 AM) Component Value Ref Range Glucose Fasting 104 (H) 70 - 100 MG/DL Specimen Performing Laboratory Blood [facility] [address] [place] [address] in this encounter Visit Diagnoses Diagnosis Ptosis of left eyelid Unspecified ptosis of eyelid Miosis Miosis (persistent), 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
--- OUTSIDE RECORDS SUMMARY | 2017-04-19 20:04 | XMS REPORT | Encounter Summary ---
Author Author [facility] Organization [facility] Address Unknown Phone Unavailable Care Team Providers Care Heavy Equipment Field Mechanic Name Role Phone PCP Unavailable Reason for Referral * Radiology Services Status Reason Specialty Diagnoses / Referred By Referred To Procedures Contact Contact No Auth Needed Radiology Diagnoses Kyrie Larios Gen Radiology Ptosis of left L, DO [address] eyelid [address] [place], [place] Cervical MS 2012 [address] stenosis [place], [place] Phone: spine [phone] Proximal muscle Phone: weakness [phone] Numbness in feet Fax: P [phone] rocedures MRI HEAD WO CONTRAST * Radiology Services Status Reason Specialty Diagnoses / Referred By Referred To Procedures Contact Contact No Auth Needed Radiology Diagnoses Kyrie Larios Gen Radiology Ptosis of left L, DO [address] eyelid [address] [place] Cervical MS 2012 [address] stenosis [place], [place] Phone: spine [phone] Proximal muscle Phone: weakness [phone] Numbness in feet Fax: P [phone] rocedures MRI HEAD WO CONTRAST Reason for Visit * Radiology Services Status Reason Specialty Diagnoses / Referred By Referred To Procedures Contact Contact No Auth Needed Radiology Diagnoses Kyrie Larios Gen Radiology Ptosis of left L, DO [address] [place] Cervical MS 2012 [address] stenosis [place], [place] Phone: spine [phone] Proximal muscle Phone: weakness [phone] Numbness in feet Fax: P [phone] rocedures MRI HEAD WO CONTRAST Encounter Details Date Type Department Care Team Description 04/16/2017 Hospital [facility] Ric, Kyrie Ledesma DO Arrived Encounter Hospital Radiology [address] MS [address] [place] [address] [place] [address] [phone] Social History Tobacco Use Types Packs/Day Years Used Date Never Smoker Smokeless Tobacco: Never Used Alcohol Use Drinks/Week oz/Week Comments No Sex Assigned at Date Recorded Not on file as of this encounter Plan of Treatment Not on fileas of this encounter Results * MRI HEAD WO CONTRAST (04/16/2017 6:43 [...] are normal. Vascular flow voids around the [place] normal. Dural contents are also [...] Interface, Radiant Results - 04/19/2017 8:50 AM KILN CAR UNLOADER MRI brain and cervical spine Clinical history: [...] are normal. Vascular flow voids around the [place] normal. Dural contents are also [...]
--- OUTSIDE RECORDS SUMMARY | 2017-04-19 20:05 | XMS REPORT | Encounter Summary ---
Author Author [facility] Organization [facility] Address Unknown Phone Unavailable Care Team Providers Care Technology Architect Name Role Phone PCP Unavailable Encounter Details Date Type Department Care Team Description 04/10/2017 Hospital [facility] Kyrie Larios DO Unspecified ptosis of Encounter [address] [place] [address] [address] [place] [address] [phone] Social History Tobacco Use Types Packs/Day Years Used Date Never Smoker Smokeless Tobacco: Never Used Alcohol Use Drinks/Week oz/Week Comments No Sex Assigned at Date Recorded Not on file as of this encounter Medications at Time of Discharge Medication Sig. Disp. Refills Start Date End Date ACETAMINOPHEN (TYLENOL Take by mouth. PO) ASCORBATE CALCIUM Take by mouth. (VITAMIN C PO) atorvastatin (LIPITOR) 20 Take 20 mg by mouth mg tablet daily. budesonide/formoterol Inhale 2 puffs by mouth (SYMBICORT) 160/4.5 mcg into the lungs twice inhalation daily. calcium carbonate Take 1,250 mg by mouth (OS-SHANTE) 260 mg calcium daily. (648 mg) tab cholecalciferol (VITAMIN Take 1,000 Units by mouth D-3) 1,000 units tablet daily. cyanocobalamin (VITAMIN Inject 1 mL into the B-12, RUBRAMIN) 1,000 muscle every 30 days. mcg/mL injection cyclobenzaprine Take 10 mg by mouth three (FLEXERIL) 10 mg tablet times daily as needed for Muscle Cramps. D-MANNOSE PO Take by mouth. diazePAM (VALIUM) 10 mg Take 10 mg by mouth every tablet 6 hours as needed for Anxiety. fish oil- omega 3-DHA/EPA Take 1 capsule by mouth 300/1,000 mg capsule daily. HYDROcodone/acetaminophen Take 1 tablet by mouth (+) (NORCO) 10/325 mg every 6 hours as needed tablet for Pain INFLIXIMAB (REMICADE IV) Administer through vein. LACTOBACILLUS ACIDOPHILUS Take by mouth. (ACIDOPHILUS PO) loratadine (CLARITIN) 10 Take 10 mg by mouth every mg tablet morning. magnesium oxide (MAG-OX) Take 400 mg by mouth 400 mg tablet daily. MELATONIN PO Take by mouth. metoprolol tartrate Take 25 mg by mouth twice (LOPRESSOR) 25 mg tablet daily. milnacipran(+) (SAVELLA) Take by mouth. 100 mg tablet niacin ER (NIASPAN) 500 Take 500 mg by mouth mg tablet twice daily. Take with food. pantoprazole DR Take 40 mg by mouth (PROTONIX) 40 mg tablet daily. PREDNISONE PO Take by mouth. QUEtiapine (SEROQUEL) 100 Take 100 mg by mouth mg tablet twice daily. traMADol (ULTRAM) 50 mg Take 50 mg by mouth every tablet 6 hours as needed for Pain. traZODone (DESYREL) 100 Take 100 mg by mouth at mg tablet bedtime daily. VALERIAN PO Take by mouth. venlafaxine XR (EFFEXOR Take 150 mg by mouth XR) 150 mg capsule daily. Take with food. vitamins, B complex tab Take 1 tablet by mouth daily. as of this encounter Plan of Treatment Not on fileas of this encounter Results * ANTI-NUCLEAR AB(KYUNG)-QUANT (04/10/2017 12:04 PM) Component Value Ref Range KYUNG Titer/Pattern 640 (H)Comment: HOMOGENEOUS <80 Specimen Performing Laboratory MAIN LAB [address] [place] [address] * CREATINE KINASE-CPK (04/10/2017 12:04 PM) Component Value Ref Range Creatine Kinase 118 21 - 215 U/L Specimen Performing Laboratory Blood MAIN LAB [address] [place] [address] * VITAMIN B12 (04/10/2017 12:04 PM) Component Value Ref Range Vitamin B12 462 180 - 914 PG/ML Specimen Performing Laboratory Blood MAIN LAB [address] [place] [address] * TSH WITH FREE T4 REFLEX (04/10/2017 12:04 PM) Component Value Ref Range TSH 1.217 0.35 - 5.00 MCU/ML Specimen Performing Laboratory Blood MAIN LAB [address] [place] [address] * SYPHILIS AB SCREEN (04/10/2017 12:04 PM) Component Value Ref Range Syphilis AB, Total NEG NEG-NEG Comment: Negative EIA: Negative results indicate no past or present syphilis infection. Early infection can not be excluded. Specimen Performing Laboratory Blood MAIN LAB [address] [place] [address] * SED RATE (04/10/2017 12:04 PM) Component Value Ref Range Sed Rate -ESR <1 0 - 20 MM/HR Specimen Performing Laboratory Blood MAIN LAB [address] [place] [address] * RHEUMATOID FACTOR (RF) (04/10/2017 12:04 PM) Component Value Ref Range Rheum Factor Screen <20 <24 IU/mL Specimen Performing Laboratory Blood [facility] LAB [address] [place] [address] * PYRIDOXAL 5 PHOSPHATE (04/10/2017 12:04 PM) Component Value Ref Range Pyridoxal 5 Phosphate 23 Comment: Reference range: 5 to 50 Unit: mcg/L ADDITIONAL INFORMATION This test was developed and its performance characteristics determined by [facility] in a manner consistent with CLIA requirements. This test has not been cleared or approved by the U.S. Food and Drug Administration. [facility], [address] [place] [address] Specimen Performing Laboratory Blood REFERENCE LAB * METHYLMALONIC ACID QUANT (04/10/2017 12:04 PM) Component Value Ref Range Methylmalonic Acid 0.12 Comment: Reference range: <=0.40 Unit: nmol/mL ADDITIONAL INFORMATION This test was developed and its performance characteristics determined by [facility] in a manner consistent with CLIA requirements. This test has not been cleared or approved by the U.S. Food and Drug Administration. [facility] Specimen Performing Laboratory Blood REFERENCE LAB * [...] in this report. Specimen Performing Laboratory Blood [facility] [address] [place] [address] * HIV-1/2 ANTIGEN/ANTIBODY SCREEN (04/10/2017 12:04 PM) Component Value Ref Range HIV 1 and 2 AG AB Screen NEG NEG-NEG Specimen Performing Laboratory Blood [facility] LAB [address] [place] [address] * ELECTROPHORESIS-SERUM PROTEIN (04/10/2017 12:04 PM) Component [...] in this report. Specimen Performing Laboratory Blood [facility] [address] [place] [id number] * COMPREHENSIVE METABOLIC PANEL (04/10/2017 12:04 PM) [...] Pharmacist for questions. Specimen Performing Laboratory Blood MAIN LAB [address] [place] [id number] * CBC AND DIFF (04/10/2017 12:04 PM) [...] - 0.20 K/UL Specimen Performing Laboratory Blood MAIN LAB [address] [place] [address] * ANTI-NUCLEAR ANTIBODY(KYUNG) (04/10/2017 12:04 PM) Component Value Ref Range KYUNG Screen SEE TITER <80 TITER Specimen Performing Laboratory Blood MAIN LAB [address] [place] [address] * ANTI-NEUT CYTO AB (ANCA/PANCA) (04/10/2017 12:04 PM) Component Value Ref Range C-ANCA <20,NEGATIVE TITER P-ANCA <20,NEGATIVE TITER Specimen Performing Laboratory Blood MAIN LAB [address] [place] [address] * ANGIOTENSIN CONV ENZYME (DEMETRIA) (04/10/2017 12:04 PM) Component Value Ref Range Angiotensin Convert 25 Enzyme Comment: Reference range: 8 to 53 Unit: U/L [facility] Specimen Performing Laboratory Blood REFERENCE LAB * [...] antibodies. Test developed and characteristics determined by [facility]. See Compliance Statement B: [employer] Acetylcholine Blocking AB 0 Comment: Reference range: [...] antibodies. Test developed and characteristics determined by [facility]. See Compliance Statement B: [email or web address] Performed by [facility], [address] [facility] [address] [email or web address], Jacob Bhat MD, Lab. Director Specimen Performing Laboratory Blood REFERENCE LAB in this encounter Visit Diagnoses Diagnosis Ptosis [...]
--- OUTSIDE RECORDS SUMMARY | 2017-04-19 20:05 | XMS REPORT ---
Author Author YON CONSTANTINO Organization [facility] Address [address] [place] [address] Care Team Providers Care Support Clerk Name Role Phone YON CONSTANTINO Unavailable PROBLEMS Type Condition ICD9-CM Code [id number] Code Onset Dates Condition Status SNOMED Code Problem Acute pharyngitis 462 Active 780405755 Problem Major depressive disorder, recurrent episode, moderate F33.1 Active 448347464 ALLERGIES Unknown Allergies SOCIAL HISTORY No smoking Hx information available PLAN OF CARE Activity Details Follow Up 2 Weeks Reason: VITAL SIGNS MEDICATIONS Unknown Medications RESULTS No Results PROCEDURES Procedure Date Ordered Related Diagnosis Body Site [facility] VISIT MENTAL HEALTH ESTAB PT Jul 01, 2016 Psychotherapy, patient &/family, 45 minutes, established patient Jul 01, 2016 IMMUNIZATIONS No Known Immunizations
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
--- OUTSIDE RECORDS SUMMARY | 2017-04-19 20:05 | XMS REPORT ---
Author Author YON CONSTANTINO Organization [facility] Address [address] [place] [address] Care Team Providers Care Teradata Solution Architect Name Role Phone YON CONSTANTINO Unavailable PROBLEMS Type Condition ICD9-CM Code [id number] Code Onset Dates Condition Status SNOMED Code Problem Acute pharyngitis 462 Active 049559886 Problem Major depressive disorder, recurrent episode, moderate F33.1 Active 605190903 ALLERGIES Unknown Allergies SOCIAL HISTORY No smoking Hx information available PLAN OF CARE Activity Details Follow Up 2 Weeks Reason: VITAL SIGNS MEDICATIONS Unknown Medications RESULTS No Results PROCEDURES Procedure Date Ordered Related Diagnosis Body Site [facility] VISIT MENTAL HEALTH ESTAB PT Jul 13, 2016 Psychotherapy, patient &/family, 45 minutes, established patient Jul 13, 2016 IMMUNIZATIONS No Known Immunizations
--- OUTSIDE RECORDS SUMMARY | 2017-04-19 20:05 | XMS REPORT ---
Author Author YON CONSTANTINO Organization [employer] Address Unknown Phone Unavailable Care Team Providers Care Financial Coordinator Name Role Phone YON CONSTANTINO CP Unavailable Allergies No Known Allergies Problems Problem Type Condition Code Onset Dates Condition Status Problem Major depressive disorder, recurrent episode, moderate F33.1 Active Assessment Major depressive disorder, recurrent episode, moderate F33.1 Active Problem Acute pharyngitis 462 Active Medications No Known Medications Procedures Procedure Coding System Code Date Psychotherapy, patient &/family, 45 minutes, established patient CPT-4 94754 Apr 16, 2016 [facility] VISIT MENTAL HEALTH ESTAB PT CPT-4 G0470 Apr 16, 2016 Results No Known Results Summary Purpose [employer] Submission
--- OUTSIDE RECORDS SUMMARY | 2017-04-19 20:05 | XMS REPORT | Encounter Summary ---
Author Author [facility] Organization [facility] Address Unknown Phone Unavailable Care Team Providers Care Major Account Manager Name Role Phone PCP Unavailable Encounter Details Date Type Department Care Team Description 03/02/2017 Ancillary Rad Outpatient, Radiologist Diagnosis unknown Orders [address] [place] [address] Social History Tobacco Use Types Packs/Day Years Used Date Never Assessed Sex Assigned at Date Recorded Not on file as of this encounter Plan of Treatment Not on fileas of this encounter Results * MRI L-SPINE EXTERNAL IMAGING (09/28/2016) Narrative This order has been auto finalized and does not contain a result. * GENERAL RAD LOWER EXT EXTERNAL IMAGING (07/31/2016) Narrative This order has been auto finalized and does not contain a result. * GENERAL RAD C-SPINE EXTERNAL IMAGING (07/15/2016) Narrative This order has been auto finalized and does not contain a result. * MRI C-SPINE EXTERNAL IMAGING (06/16/2016) Narrative This order has been auto finalized and does not contain a result. in this encounter Visit Diagnoses Diagnosis Diagnosis unknown Other unknown and unspecified cause of morbidity or mortality in this encounter
--- OUTSIDE RECORDS SUMMARY | 2017-04-19 20:05 | XMS REPORT | Encounter Summary ---
Author Author [facility] Organization [facility] Address Unknown Phone Unavailable Care Team Providers Care Explosives Worker Name Role Phone PCP Unavailable Reason for Referral * Pain Authorization Status Reason Specialty Diagnoses / Referred By Referred To Procedures Contact Contact No Auth Needed Neurology Diagnoses Kyrie Larios [facility] Sp[facility] Neurology Numbness L, DO [address] DARIAN A BRUNO SPINE EMG MS 2012 COMPREHENSIVE SPN PROCEDURE [place], [place] CNTR [place] NDL EMG 2 XTR [address] [place], [place] RELATED Phone: [phone] [address] [phone] Phone: Encounter Details Date Type Department Care Team Description 03/19/2017 Orders Only [facility] Kyrie Larios DO Numbness (Primary Dx) [address] DARIAN A BRUNO MS 2011 COMPREHENSIVE [place] [address] [place] [address] [phone] Social History Tobacco Use Types Packs/Day Years Used Date Never Assessed Sex Assigned at Date Recorded Not on file as of this encounter Plan of Treatment Name Priority Associated Diagnoses Order Schedule SPINE EMG PROCEDURE Routine Numbness Expected: 03/19/2017, Expires: 06/17/2017 as of this encounter Visit Diagnoses Diagnosis Numbness - Primary Disturbance of skin sensation in this encounter
--- OUTSIDE RECORDS SUMMARY | 2017-04-19 20:05 | XMS REPORT | Encounter Summary ---
Author Author [facility] Organization [facility] Address Unknown Phone Unavailable Care Team Providers Care Grain Broker Name Role Phone PCP Unavailable Reason for Visit * Reason Comments Procedure EMG-BLE * Pain Authorization Status Reason Specialty Diagnoses / Referred By Referred To Procedures Contact Contact No Auth Needed Neurology Diagnoses Kyrie Larios [facility] Spn Neurology Numbness L, DO Cl [address] DARIAN CARR SPINE EMG MS 2012 COMPREHENSIVE SPN PROCEDURE [place], [place] N[place] EMG 2 XTR [address] [place], [place] Phone: [phone] [address] [phone] Phone: Encounter Details Date Type Department Care Team Description 04/09/2017 Procedure visit [facility] Neurology Kyrie Larios DO ERRONEOUS [address] ENCOUNTER--DISREGARD DARIAN CARR MS 2011 (Primary Dx) [place] [address] [place] [address] [phone] Social History Tobacco Use Types Packs/Day Years [...] CDT Inhaled Oxygen - - Concentration Weight - - Height - - Body Mass Index - - in this encounter Progress Notes * Kyrie Larios, DO - 04/09/2017 2:45 PM CDT This encounter was created in error. Please disregard. in this encounter Plan of Treatment Not on fileas of this encounter Visit Diagnoses Diagnosis ERRONEOUS ENCOUNTER--DISREGARD - Primary in this encounter
--- OUTSIDE RECORDS SUMMARY | 2017-04-19 20:07 | XMS REPORT ---
Author Author YON CONSTANTINO Organization [facility] Address [address] [place] [address] Care Team Providers Care Household Appliance Mechanic Name Role Phone YON CONSTANTINO Unavailable PROBLEMS Type Condition ICD9-CM Code [id number] Code Onset Dates Condition Status SNOMED Code Problem Acute pharyngitis 462 Active 055388842 Problem Major depressive disorder, recurrent episode, moderate F33.1 Active 079052015 ALLERGIES No Information SOCIAL HISTORY Never Assessed PLAN OF CARE Activity Details Follow Up 2 Weeks Reason: VITAL SIGNS MEDICATIONS Unknown Medications RESULTS No Results PROCEDURES Procedure Date Ordered Result Body Site [facility] VISIT MENTAL HEALTH ESTAB PT Jul 30, 2016 Psychotherapy, patient &/family, 45 minutes, established patient Jul 30, 2016 IMMUNIZATIONS No Known Immunizations
--- OUTSIDE RECORDS SUMMARY | 2017-04-19 20:09 | XMS REPORT ---
Author Author YON CONSTANTINO Organization [facility] Address [address] [place] [address] Care Team Providers Care Preform Machine Operator Name Role Phone YON CONSTANTINO Unavailable PROBLEMS Type Condition ICD9-CM Code [id number] Code Onset Dates Condition Status SNOMED Code Problem Acute pharyngitis 462 Active 361650920 Problem Major depressive disorder, recurrent episode, moderate F33.1 Active 409352346 Assessment Major depressive disorder, recurrent episode, moderate F33.1 Feb, Active 38741766 ALLERGIES Unknown Allergies SOCIAL HISTORY No smoking Hx information available PLAN OF CARE VITAL SIGNS MEDICATIONS Unknown Medications RESULTS No Results PROCEDURES Procedure Date Ordered Related Diagnosis Body Site [facility] VISIT MENTAL HEALTH ESTAB PT Feb 18, 2016 Psychotherapy, patient &/family, 45 minutes, established patient Feb 18, 2016 IMMUNIZATIONS No Known Immunizations
--- OUTSIDE RECORDS SUMMARY | 2017-04-19 20:09 | XMS REPORT ---
Author Author YOMI CARBALLO Organization [employer] Address Unknown Phone Unavailable Care Team Providers Care Machine Puller And Laster Name Role Phone YOMI CARBALLO CP Unavailable Allergies No Known Allergies Problems Problem Type Condition ICD-9 Code Onset Dates Condition Status Problem Acute pharyngitis 462 Active Assessment Major depressive disorder, recurrent episode, moderate 296.32 Active Problem Major depressive disorder, recurrent episode, moderate 296.32 Active Medications No Known Medications Procedures Procedure Coding System Code Date Psychotherapy, patient &/family, 45 minutes, established patient CPT-4 14210 Feb 04, 2015 Results No Known Results Summary Purpose [employer] Submission
--- OUTSIDE RECORDS SUMMARY | 2017-04-19 20:09 | XMS REPORT ---
Author Author MARINO CARBALLO [facility] Address [address] [place] [address] Care Team Providers Care Risk Control Field Representative Name Role Phone MARINO CARBALLO Unavailable PROBLEMS Type Condition ICD9-CM Code [id number] Code Onset Dates Condition Status SNOMED Code Problem Acute pharyngitis 462 Active 005366204 Problem Major depressive disorder, recurrent episode, moderate F33.1 Active 572422703 ALLERGIES Unknown Allergies SOCIAL HISTORY No smoking Hx information available PLAN OF CARE Activity Details Follow Up 2 Weeks Reason: Follow-up VITAL SIGNS MEDICATIONS Unknown Medications RESULTS No Results PROCEDURES Procedure Date Ordered Related Diagnosis Body Site [facility] VISIT MENTAL HEALTH ESTAB PT May 21, 2016 Psychotherapy, patient &/family, 45 minutes, established patient May 21, 2016 IMMUNIZATIONS No Known Immunizations
--- OUTSIDE RECORDS SUMMARY | 2017-04-19 20:09 | XMS REPORT ---
Author Author YON CONSTANTINO Organization [employer] Address Unknown Phone Unavailable Care Team Providers Care Hogshead Liner Name Role Phone YON CONSTANTINO CP Unavailable Allergies No Known Allergies Problems Problem Type Condition Code Onset Dates Condition Status Problem Major depressive disorder, recurrent episode, moderate F33.1 Active Assessment Major depressive disorder, recurrent episode, moderate F33.1 Active Problem Acute pharyngitis 462 Active Medications No Known Medications Procedures Procedure Coding System Code Date Psychotherapy, patient &/family, 45 minutes, established patient CPT-4 93286 December 17, 2015 [facility] VISIT MENTAL HEALTH ESTAB PT CPT-4 G0470 December 17, 2015 Results No Known Results Summary Purpose [employer] Submission
--- OUTSIDE RECORDS SUMMARY | 2017-04-19 20:09 | XMS REPORT ---
Author Author YOMI CARBALLO Organization [employer] Address Unknown Phone Unavailable Care Team Providers Care Computer Security Manager Name Role Phone YOMI CARBALLO CP Unavailable Allergies No Known Allergies Problems Problem Type Condition Code Onset Dates Condition Status Problem Major depressive disorder, recurrent episode, moderate F33.1 Active Assessment Major depressive disorder, recurrent episode, moderate F33.1 Active Problem Acute pharyngitis 462 Active Medications No Known Medications Procedures Procedure Coding System Code Date Psychotherapy, patient &/family, 30 minutes, established patient CPT-4 47478 Jul 08, 2015 [facility] VISIT MENTAL HEALTH ESTAB PT CPT-4 G0470 Jul 08, 2015 Results No Known Results Summary Purpose [employer] Submission
--- OUTSIDE RECORDS SUMMARY | 2017-04-19 20:10 | XMS REPORT | Continuity of Care Document ---
Author Author [facility] Address Unknown Phone Unavailable Allergies Active Description Code Type Severity Reaction Onset Reported/Identified Relationship to Patient Clinical Status Yes latex [id number] Drug Allergy Unknown N/A 08/29/2013 Yes Sulfa (Sulfonamide Antibiotics) [id number] Drug Allergy Unknown N/A 08/29/2013 Medications Problems Date Dx Coded Attending Type Code Diagnosis Diagnosed By 12/26/2007 YOMI CARBALLO PHD 300.4 MO DYSTHYMIC DIS 12/26/2007 YOMI CARBALLO PHD 300.4 MO DYSTHYMIC DIS 12/26/2007 YOMI CARBALLO PHD 300.4 MO DYSTHYMIC DIS 12/26/2007 YOMI CARBALLO PHD 300.4 MO DYSTHYMIC DIS 12/26/2007 YOMI CARBALLO PHD 300.4 MO DYSTHYMIC DIS 12/26/2007 YOMI CARBALLO PHD 300.4 MO DYSTHYMIC DIS 12/26/2007 YOMI CARBALLO PHD 300.4 MO DYSTHYMIC DIS 12/26/2007 YOMI CARBALLO PHD 300.4 MO DYSTHYMIC DIS 12/26/2007 YOMI CARBALLO PHD 300.4 MO DYSTHYMIC DIS 12/26/2007 YOMI CARBALLO PHD 300.4 MO DYSTHYMIC DIS 12/26/2007 YOMI CARBALLO PHD 300.4 MO DYSTHYMIC DIS 12/26/2007 YOMI CARBALLO PHD 300.4 MO DYSTHYMIC DIS 12/26/2007 MELO CARCAMO APRN 300.4 MO DYSTHYMIC DIS 12/26/2007 YOMI CARBALLO PHD 300.4 MO DYSTHYMIC DIS 12/26/2007 YOMI CARBALLO PHD 300.4 MO DYSTHYMIC DIS 12/26/2007 YOMI CARBALLO PHD 300.4 MO DYSTHYMIC DIS 12/26/2007 YOMI CARBALLO PHD 300.4 MO DYSTHYMIC DIS 12/26/2007 YOMI CARBALLO PHD 300.4 MO DYSTHYMIC DIS 12/26/2007 YOMI CARBALLO PHD 300.4 MO DYSTHYMIC DIS 12/26/2007 YOMI CARBALLO PHD 300.4 MO DYSTHYMIC DIS 04/25/2011 Ot 327.23 OBSTRUCTIVE SLEEP APNEA (ADULT) (PEDIATR 03/07/2012 Ot 719.46 JOINT PAIN-L/LEG 03/07/2012 Ot 729.1 MYALGIA AND MYOSITIS NOS 03/07/2012 Ot V57.1 PHYSICAL THERAPY NEC 06/03/2012 Ot 338.29 OTHER CHRONIC PAIN 09/15/2012 Ot 729.1 MYALGIA AND MYOSITIS NOS 09/15/2012 Ot 780.60 FEVER, UNSPECIFIED 09/15/2012 Ot V58.69 OTH MED,LT,CURRENT USE 03/14/2013 YOMI CARBALLO PHD 296.32 MO DEPRESSIVE RECURRENT MODERATE 03/14/2013 YOMI CARBALLO PHD 296.32 MO DEPRESSIVE RECURRENT MODERATE 03/14/2013 YOMI CARBALLO PHD 296.32 MO DEPRESSIVE RECURRENT MODERATE 03/14/2013 YOMI CARBALLO PHD 296.32 MO DEPRESSIVE RECURRENT MODERATE 03/14/2013 YOMI CARBALLO PHD 296.32 MO DEPRESSIVE RECURRENT MODERATE 03/14/2013 YOMI CARBALLO PHD 296.32 MO DEPRESSIVE RECURRENT MODERATE 03/14/2013 YOMI CARBALLO PHD 296.32 MO DEPRESSIVE RECURRENT MODERATE 03/14/2013 YOMI CARBALLO PHD 296.32 MO DEPRESSIVE RECURRENT MODERATE 03/14/2013 YOMI CARBALLO PHD 296.32 MO DEPRESSIVE RECURRENT MODERATE 03/14/2013 YOMI CARBALLO PHD 296.32 MO DEPRESSIVE RECURRENT MODERATE 03/14/2013 YOMI CARBALLO PHD 296.32 MO DEPRESSIVE RECURRENT MODERATE 03/14/2013 YOMI CARBALLO PHD 296.32 MO DEPRESSIVE RECURRENT MODERATE 03/14/2013 MELO CARCAMO APRN 296.32 MO DEPRESSIVE RECURRENT MODERATE 03/14/2013 YOMI CARBALLO PHD 296.32 MO DEPRESSIVE RECURRENT MODERATE 03/14/2013 YOMI CARBALLO PHD 296.32 MO DEPRESSIVE RECURRENT MODERATE 03/14/2013 YOMI CARBALLO PHD 296.32 MO DEPRESSIVE RECURRENT MODERATE 03/14/2013 YOMI CARBALLO PHD 296.32 MO DEPRESSIVE RECURRENT MODERATE 03/14/2013 YOMI CARBALLO PHD 296.32 MO DEPRESSIVE RECURRENT MODERATE 03/14/2013 YOMI CARBALLO PHD 296.32 MO DEPRESSIVE RECURRENT MODERATE 03/14/2013 HARIS LANZA, YOMI Márquez 296.32 MO DEPRESSIVE RECURRENT MODERATE 05/09/2013 FINN NO, CALLUM Meeks Ot 891.0 OPEN WND KNEE/LEG/ANKLE 05/09/2013 FINN NO, CALLUM Meeks Ot 924.11 CONTUSION OF KNEE 05/09/2013 FINN NO, CALLUM Meeks Ot 959.7 LOWER LEG INJURY NOS 05/09/2013 FINN NO, CALLUM Meeks Ot E000.8 OTHER EXTERNAL CAUSE STATUS 05/09/2013 FINN NO, CALLUM Meeks Ot E888.9 FALL NOS 11/27/2013 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 Ot 266.2 B-COMPLEX DEFIC NEC 03/17/2014 MELO CARCAMO APRN 462 PHARYNGITIS ACUTE 03/17/2014 HARIS LANZA, YOMI Márquez 462 PHARYNGITIS ACUTE 03/17/2014 HARIS LANZA, YOMI Márquez 462 PHARYNGITIS ACUTE 03/17/2014 HARIS LANZA, YOMI Márquez 462 PHARYNGITIS ACUTE 03/17/2014 HARIS LANZA, YOMI Márquez 462 PHARYNGITIS ACUTE 03/17/2014 HARIS LANZA, YOMI Márquez 462 PHARYNGITIS ACUTE 03/17/2014 HARIS LANZA, YOMI Márquez 462 PHARYNGITIS ACUTE 03/17/2014 HARIS LANZA, YOMI Márquez 462 PHARYNGITIS ACUTE 05/01/2014 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 Ot 266.2 05/29/2014 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 Ot 266.2 06/05/2014 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P Ot 266.2 06/05/2014 Ot 786.50 06/05/2014 Ot 959.11 06/05/2014 Ot E000.8 06/05/2014 Ot E030 06/05/2014 Ot E849.6 06/05/2014 Ot E888.9 06/05/2014 Ot 959.3 06/05/2014 Ot 959.4 06/05/2014 Ot E000.8 06/05/2014 Ot E849.0 06/05/2014 Ot E888.9 06/05/2014 Ot 959.7 06/05/2014 Ot E000.8 06/05/2014 Ot E849.0 06/05/2014 Ot E888.9 06/05/2014 Ot 793.81 06/05/2014 Ot V76.12 06/05/2014 Ot 719.46 06/05/2014 Ot 719.47 06/05/2014 Ot 959.7 06/05/2014 Ot E000.8 06/05/2014 Ot E849.0 06/05/2014 Ot E888.9 06/05/2014 Ot 780.79 06/05/2014 Ot 786.05 06/05/2014 Ot 719.43 06/05/2014 Ot 793.81 06/05/2014 Ot V76.12 06/05/2014 Ot 786.05 06/05/2014 Ot 959.11 06/05/2014 Ot E000.8 06/05/2014 Ot E849.0 06/05/2014 Ot E888.9 06/05/2014 Ot 729.1 06/05/2014 Ot 780.60 06/05/2014 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 Ot 266.2 06/05/2014 SAILAJA NO, SVETLANA A Ot 519.11 06/05/2014 SAILAJA NO, SVETLANA A Ot 786.09 06/05/2014 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 Ot 266.2 06/24/2014 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 Ot 266.2 B-COMPLEX DEFIC NEC 07/05/2014 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 Ot 719.47 07/05/2014 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 Ot 729.5 07/06/2014 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 Ot 719.47 07/06/2014 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 Ot 729.5 09/13/2014 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 Ot 266.2 10/11/2014 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 Ot 266.2 10/26/2014 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 Ot 266.2 10/26/2014 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 Ot 266.2 11/14/2014 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 Ot 266.2 B-COMPLEX DEFIC NEC 11/14/2014 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 Ot 266.2 12/25/2014 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 Ot 266.2 01/23/2015 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 Ot 266.2 01/29/2015 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 Ot 266.2 01/30/2015 Ot 786.50 01/30/2015 Ot 959.11 01/30/2015 Ot E000.8 01/30/2015 Ot E030 01/30/2015 Ot E849.6 01/30/2015 Ot E888.9 01/30/2015 Ot 959.3 01/30/2015 Ot 959.4 01/30/2015 Ot E000.8 01/30/2015 Ot E849.0 01/30/2015 Ot E888.9 01/30/2015 Ot 959.7 01/30/2015 Ot E000.8 01/30/2015 Ot E849.0 01/30/2015 Ot E888.9 01/30/2015 Ot 793.81 01/30/2015 Ot V76.12 01/30/2015 Ot 719.46 01/30/2015 Ot 719.47 01/30/2015 Ot 959.7 01/30/2015 Ot E000.8 01/30/2015 Ot E849.0 01/30/2015 Ot E888.9 01/30/2015 Ot 780.79 01/30/2015 Ot 786.05 01/30/2015 Ot 719.43 01/30/2015 Ot 793.81 01/30/2015 Ot V76.12 01/30/2015 Ot 786.05 01/30/2015 Ot 959.11 01/30/2015 Ot E000.8 01/30/2015 Ot E849.0 01/30/2015 Ot E888.9 01/30/2015 Ot 729.1 01/30/2015 Ot 780.60 01/30/2015 SAILAJA NO, SVETLANA A Ot 519.11 01/30/2015 SAILAJA NO, SVETLANA A Ot 786.09 01/30/2015 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 Ot 719.47 01/30/2015 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 Ot 729.5 01/30/2015 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 Ot 266.2 01/30/2015 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 Ot 266.2 02/01/2015 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 Ot 266.2 02/22/2015 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 Ot 719.46 JOINT PAIN-L/LEG 02/22/2015 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 Ot 728.87 MUSCLE WEAKNESS (GENERALIZED) 02/22/2015 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 Ot M25.569 PAIN IN UNSPECIFIED KNEE 02/22/2015 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 Ot M62.81 MUSCLE WEAKNESS (GENERALIZED) 02/22/2015 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 Ot V57.1 PHYSICAL THERAPY NEC 02/22/2015 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 Ot Z51.89 ENCOUNTER FOR OTHER SPECIFIED AFTERCARE 02/26/2015 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 Ot 266.2 02/26/2015 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 Ot 266.2 03/06/2015 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 Ot 266.2 B-COMPLEX DEFIC NEC 04/03/2015 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 Ot 266.2 04/04/2015 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 Ot 266.2 05/06/2015 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 Ot E53.8 05/30/2015 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 Ot E53.8 06/10/2015 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 Ot E53.8 06/25/2015 Ot 959.3 06/25/2015 Ot 959.4 06/25/2015 Ot E000.8 06/25/2015 Ot E849.0 06/25/2015 Ot E888.9 06/25/2015 Ot 959.7 06/25/2015 Ot E000.8 06/25/2015 Ot E849.0 06/25/2015 Ot E888.9 06/25/2015 Ot 793.81 06/25/2015 Ot V76.12 06/25/2015 Ot 719.46 06/25/2015 Ot 719.47 06/25/2015 Ot 959.7 06/25/2015 Ot E000.8 06/25/2015 Ot E849.0 06/25/2015 Ot E888.9 06/25/2015 Ot 780.79 06/25/2015 Ot 786.05 06/25/2015 Ot 719.43 06/25/2015 Ot 793.81 06/25/2015 Ot V76.12 06/25/2015 Ot 786.05 06/25/2015 Ot 959.11 06/25/2015 Ot E000.8 06/25/2015 Ot E849.0 06/25/2015 Ot E888.9 06/25/2015 Ot 729.1 06/25/2015 Ot 780.60 06/25/2015 SAILAJA NO, SVETLANA A Ot 519.11 06/25/2015 SAILAJA NO, SVETLANA A Ot 786.09 06/25/2015 VARSHA BROOKS Patrick 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 Ot 719.47 06/25/2015 VARSHA BROOKS Patrick 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 Ot 729.5 06/25/2015 YONATAN MADDOXIWONA Patrick 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 Ot 266.2 06/25/2015 VARSHA BROOKS Patrick 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 Ot E53.8 07/02/2015 VARSHA BROOKS Patrick 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 Ot E53.8 DEFICIENCY OF OTHER SPECIFIED B GROUP 07/23/2015 YONATAN MADDOXHANIE Celina 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 Ot M79.671 07/23/2015 VARSHA BROOKS Patrick 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 Ot E53.8 07/23/2015 VARSHA BROOKS Patrick 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 Ot E53.8 07/24/2015 VARSHA BROOKS Patrick 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 Ot E53.8 07/25/2015 VARSHA BROOKS Patrick 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 Ot M79.671 08/27/2015 VARSHA BROOKS Patrick 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 Ot E53.8 09/04/2015 VLADIMIR MADDOXKIRA Patrick 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 Ot E53.8 09/10/2015 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 Ot M47.892 09/10/2015 VLADIMIR MADDOXKIRA Patrick 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 Ot M47.892 09/13/2015 VARSHA BROOKS Patrick 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 Ot E53.8 10/21/2015 YONATAN MADDOXIWONA Patrick 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 Ot E53.8 DEFICIENCY OF OTHER SPECIFIED B GROUP 03/02/2016 FINN NO, CALLUM Meeks Ot F41.9 ANXIETY DISORDER, UNSPECIFIED 03/02/2016 FINN NO, CALLUM Meeks Ot Z53.21 PROC/TRTMT NOT CRD OUT D/T PT LV BEF SEE 03/04/2016 CALLUM BRISENO MD, Ot F41.9 ANXIETY DISORDER, UNSPECIFIED 03/04/2016 FINN NO, CALLUM Meeks Ot Z53.21 PROC/TRTMT NOT CRD OUT D/T PT LV BEF SEE 03/09/2016 ISSA SALOMON PACK OPERATOR Ot M54.5 LOW BACK PAIN 03/12/2016 UMM ISSA M PACK OPERATOR Ot M54.5 LOW BACK PAIN 03/13/2016 UMM ISSA Celina PACK OPERATOR Ot M54.5 LOW BACK PAIN 03/30/2016 ISSA SALOMON PACK OPERATOR Ot M54.5 LOW BACK PAIN 04/02/2016 UMM ISSA Patrick PACK OPERATOR Ot M54.5 LOW BACK PAIN 04/03/2016 Ot 793.81 MAMMOGRAPHIC MICROCLACIFICATION 04/03/2016 Ot V76.12 OTH SCREEN MAMMO-MALIGN NEOPLASM OF [place] 04/03/2016 Ot 719.46 JOINT PAIN-L/LEG 04/03/2016 Ot 719.47 JOINT PAIN-ANKLE 04/03/2016 Ot 959.7 LOWER LEG INJURY NOS 04/03/2016 Ot E000.8 OTHER EXTERNAL CAUSE STATUS 04/03/2016 Ot E849.0 ACCIDENT IN HOME 04/03/2016 Ot E888.9 FALL NOS 04/03/2016 Ot 780.79 OTH MALAISE FATIGUE 04/03/2016 Ot 786.05 SHORTNESS OF BREATH 04/03/2016 Ot 719.43 JOINT PAIN-FOREARM 04/03/2016 Ot 793.81 MAMMOGRAPHIC MICROCLACIFICATION 04/03/2016 Ot V76.12 OTH SCREEN MAMMO-MALIGN NEOPLASM OF [place]AY[place] 04/03/2016 Ot 786.05 SHORTNESS OF BREATH 04/03/2016 Ot 959.11 OTH INJURY OF CHEST WALL 04/03/2016 Ot E000.8 OTHER EXTERNAL CAUSE STATUS 04/03/2016 Ot E849.0 ACCIDENT IN HOME 04/03/2016 Ot E888.9 FALL NOS 04/03/2016 Ot 729.1 MYALGIA AND MYOSITIS NOS 04/03/2016 Ot 780.60 FEVER, UNSPECIFIED 04/03/2016 SAILAJA NO, SVETLANA A Ot 519.11 ACUTE BRONCHOSPASM 04/03/2016 SAILAJA NO, SVETLANA A Ot 786.09 RESPIRATORY ABNORM NEC 04/03/2016 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 Ot 719.47 JOINT PAIN-ANKLE 04/03/2016 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 Ot 729.5 PAIN IN LIMB 04/03/2016 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 Ot 266.2 B-COMPLEX DEFIC NEC 04/03/2016 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 Ot M79.671 PAIN IN RIGHT FOOT 04/03/2016 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 Ot M47.892 OTHER SPONDYLOSIS, CERVICAL REGION 04/03/2016 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 Ot E53.8 DEFICIENCY OF OTHER SPECIFIED B GROUP 04/03/2016 ISSA SALOMON APRN Ot M54.5 LOW BACK PAIN 04/06/2016 MADDOXBROOKS 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 Ot R07.89 OTHER CHEST PAIN 04/06/2016 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 Celina 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 Ot W19.XXXA UNSPECIFIED FALL, INITIAL ENCOUNTER 04/06/2016 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 Ot Y99.8 OTHER EXTERNAL CAUSE STATUS 04/24/2016 VARSHABROOKS Celina 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 Ot R07.89 OTHER CHEST PAIN 04/24/2016 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 Ot W19.XXXA UNSPECIFIED FALL, INITIAL ENCOUNTER 04/24/2016 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 Ot Y99.8 OTHER EXTERNAL CAUSE STATUS 05/04/2016 MADDOXBROOKS Celina 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 Ot R07.89 OTHER CHEST PAIN 05/04/2016 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 Ot W19.XXXA UNSPECIFIED FALL, INITIAL ENCOUNTER 05/04/2016 MADDOXBROOKS Celina 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 Ot Y99.8 OTHER EXTERNAL CAUSE STATUS 06/17/2016 VARSHABROOKS Celina 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 Ot M48.02 SPINAL STENOSIS, CERVICAL REGION 07/08/2016 VARSHABROOKS Celina 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 Ot M48.02 SPINAL STENOSIS, CERVICAL REGION 07/15/2016 VARSHABROOKS Celina 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 Ot M48.02 SPINAL STENOSIS, CERVICAL REGION 07/16/2016 ISSA SALOMON APRN Ot M54.2 CERVICALGIA 07/16/2016 ISSA SALOMON PACK OPERATOR Ot S19.9XXA UNSPECIFIED INJURY OF NECK, INITIAL ENCO 07/16/2016 ISSA SALOMON PACK OPERATOR Ot W19.XXXA UNSPECIFIED FALL, INITIAL ENCOUNTER 07/16/2016 ISSA SALOMON PACK OPERATOR Ot Y99.8 OTHER EXTERNAL CAUSE STATUS 07/16/2016 ISSA SALOMON PACK OPERATOR Ot M54.2 CERVICALGIA 07/16/2016 ISSA SALOMON PACK OPERATOR Ot S19.9XXA UNSPECIFIED INJURY OF NECK, INITIAL ENCO 07/16/2016 ISSA SALOMON PACK OPERATOR Ot W19.XXXA UNSPECIFIED FALL, INITIAL ENCOUNTER 07/16/2016 ISSA SALOMON PACK OPERATOR Ot Y99.8 OTHER EXTERNAL CAUSE STATUS 08/04/2016 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 Ot M25.571 PAIN IN RIGHT ANKLE AND JOINTS OF RIGHT 08/04/2016 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 Ot M25.572 PAIN IN LEFT ANKLE AND JOINTS OF LEFT FO 08/04/2016 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 Ot W19.XXXA UNSPECIFIED FALL, INITIAL ENCOUNTER 08/04/2016 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 Ot Y99.8 OTHER EXTERNAL CAUSE STATUS 08/06/2016 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 Ot M25.571 PAIN IN RIGHT ANKLE AND JOINTS OF RIGHT 08/06/2016 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 Ot M25.572 PAIN IN LEFT ANKLE AND JOINTS OF LEFT FO 08/06/2016 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 Ot W19.XXXA UNSPECIFIED FALL, INITIAL ENCOUNTER 08/06/2016 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 Ot Y99.8 OTHER EXTERNAL CAUSE STATUS 08/06/2016 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 Ot M25.571 PAIN IN RIGHT ANKLE AND JOINTS OF RIGHT 08/06/2016 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 Ot M25.572 PAIN IN LEFT ANKLE AND JOINTS OF LEFT FO 08/06/2016 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 Ot W19.XXXA UNSPECIFIED FALL, INITIAL ENCOUNTER 08/06/2016 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 Ot Y99.8 OTHER EXTERNAL CAUSE STATUS 08/07/2016 ISSA SLAOMON PACK OPERATOR Ot M54.2 CERVICALGIA 08/07/2016 ISSA SALOMON PACK OPERATOR Ot S19.9XXA UNSPECIFIED INJURY OF NECK, INITIAL ENCO 08/07/2016 ISSA SALOMON PACK OPERATOR Ot W19.XXXA UNSPECIFIED FALL, INITIAL ENCOUNTER 08/07/2016 ISSA SALOMON PACK OPERATOR Ot Y99.8 OTHER EXTERNAL CAUSE STATUS 08/12/2016 UMM, ISSA M PACK OPERATOR Ot M54.2 CERVICALGIA 08/12/2016 UMM ISSA Celina PACK OPERATOR Ot S19.9XXA UNSPECIFIED INJURY OF NECK, INITIAL ENCO 08/12/2016 ISSA SALOMON PACK OPERATOR Ot W19.XXXA UNSPECIFIED FALL, INITIAL ENCOUNTER 08/12/2016 UMM ISSA Celina PACK OPERATOR Ot Y99.8 OTHER EXTERNAL CAUSE STATUS 08/21/2016 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 Ot M25.571 PAIN IN RIGHT ANKLE AND JOINTS OF RIGHT 08/21/2016 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 Ot M25.572 PAIN IN LEFT ANKLE AND JOINTS OF LEFT FO 08/21/2016 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 Ot W19.XXXA UNSPECIFIED FALL, INITIAL ENCOUNTER 08/21/2016 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 Ot Y99.8 OTHER EXTERNAL CAUSE STATUS 08/25/2016 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 Ot M25.371 OTHER INSTABILITY, RIGHT ANKLE 08/25/2016 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 Ot M25.571 PAIN IN RIGHT ANKLE AND JOINTS OF RIGHT 2016 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 Ot M25.571 PAIN IN RIGHT ANKLE AND JOINTS OF RIGHT 2016 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 Ot M25.572 PAIN IN LEFT ANKLE AND JOINTS OF LEFT FO 2016 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 Ot W19.XXXA UNSPECIFIED FALL, INITIAL ENCOUNTER 2016 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 Ot Y99.8 OTHER EXTERNAL CAUSE STATUS 09/16/2016 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 Ot M25.371 OTHER INSTABILITY, RIGHT ANKLE 09/16/2016 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 Ot M25.571 PAIN IN RIGHT ANKLE AND JOINTS OF RIGHT 09/25/2016 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 Ot M25.371 OTHER INSTABILITY, RIGHT ANKLE 09/25/2016 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 Ot M25.571 PAIN IN RIGHT ANKLE AND JOINTS OF RIGHT 10/21/2016 AYLEEN SUAREZ DO Ot M54.16 RADICULOPATHY, LUMBAR REGION 11/03/2016 AYLEEN SUAREZ DO Ot M54.16 RADICULOPATHY, LUMBAR REGION 11/13/2016 KHADAR NO, JOSE Aguilera Ot G47.33 OBSTRUCTIVE SLEEP APNEA (ADULT) ( PEDIATR 11/15/2016 JOSE RUBALCAVA MD Ot G47.33 OBSTRUCTIVE SLEEP APNEA (ADULT) ( PEDIATR Procedures Code Description [place] [address] PSYCH DIAGNOSTIC EVALUATION 03/14/2013 65906 PSYTX PT&/FAMILY 45 MINUTES 04/06/2013 63655 PSYTX PT&/FAMILY 45 MINUTES 06/15/2013 49655 PSYTX PT&/FAMILY 45 MINUTES 08/03/2013 50876 PSYTX PT&/FAMILY 45 MINUTES 08/28/2013 61930 PSYTX PT&/FAMILY 45 MINUTES 09/25/2013 25179 PSYTX PT&/FAMILY 45 MINUTES 10/20/2013 94321 PSYTX PT&/FAMILY 45 MINUTES 12/01/2013 09530 PSYTX PT&/FAMILY 45 MINUTES 12/19/2013 75173 PSYTX PT&/FAMILY 45 MINUTES 01/11/2014 49634 PSYTX PT&/FAMILY 30 MINUTES 02/16/2014 45014 PSYTX PT&/FAMILY 45 MINUTES 02/23/2014 07788 PSYTX PT&/FAMILY 45 MINUTES 03/23/2014 10610 PSYTX PT&/FAMILY 45 MINUTES 03/30/2014 52540 PSYTX PT&/FAMILY 45 MINUTES 04/17/2014 04888 PSYTX PT&/FAMILY 45 MINUTES 05/07/2014 44053 PSYTX PT&/FAMILY 45 MINUTES 07/12/2014 91750 PSYTX PT&/FAMILY 30 MINUTES 09/17/2014 17962 PSYTX PT&/FAMILY 45 MINUTES 10/01/2014 Results Encounters ACCT No. Visit Date/Time Discharge Status Pt. Type Provider Facility Loc./Unit Complaint [id number] 10/01/2014 13:06:00 10/01/2014 23: 59:59 YOMI Benavides PHD [id number] 09/17/2014 10:59:00 09/17/2014 23: 59:59 YOMI Benavides PHD [id number] 07/12/2014 14:55:00 07/12/2014 23: 59:59 YOMI Benavides PHD [id number] 05/07/2014 16:00:00 05/07/2014 23: 59:59 [facility] Outpatient YOMI CARBALLO PHD [id number] 04/17/2014 14:05:00 04/17/2014 23: 59:59 [facility] Outpatient YOMI CARBALLO PHD [id number] 03/30/2014 16:05:00 03/30/2014 23: 59:59 [facility] Outpatient YOMI CARBALLO PHD [id number] 03/23/2014 15:59:00 03/23/2014 23: 59:59 [facility] Outpatient YOMI CARBALLO PHD [id number] 03/17/2014 13:39:00 03/17/2014 23: 59:59 [facility] Outpatient CARLOS ALBERTO MELO WILLS [id number] 02/23/2014 11:07:00 02/23/2014 23: 59:59 YOMI Benavides PHD [id number] 02/16/2014 15:09:00 02/16/2014 23: 59:59 [facility] Outpatient YOMI CARBALLO PHD [id number] 01/11/2014 14:06:00 01/11/2014 23: 59:59 [facility] Outpatient YOMI CARBALLO PHD [id number] 12/19/2013 13:06:00 12/19/2013 23: 59:59 [facility] Outpatient YOMI CARBALLO PHD [id number] 12/01/2013 14:58:00 12/01/2013 23: 59:59 [facility] Outpatient YOMI CARBALLO PHD [id number] 10/20/2013 13:10:00 10/20/2013 23: 59:59 YOMI Benavides PHD [id number] 09/25/2013 12:55:00 09/25/2013 23: 59:59 [facility] Outpatient YOMI CARBALLO PHD [id number] 08/28/2013 12:57:00 08/28/2013 23: 59:59 [facility] Outpatient YOMI CARBALLO PHD [id number] 08/03/2013 12:49:00 08/03/2013 23: 59:59 NENA Outpatient YOMI CARBALLO PHD [id number] 06/14/2013 15:03:00 06/14/2013 23: 59:59 NENA Outpatient YOMI CARBALLO PHD [id number] 04/06/2013 14:04:00 04/06/2013 23: 59:59 NENA Outpatient YOMI CARBALLO PHD [id number] 03/14/2013 10:02:00 03/14/2013 23: 59:59 CLS Outpatient YOMI CARBALLO PHD D [id number] 11/14/2016 19:55:00 2016 07:29:00 DIS Outpatient JOSE RUBALCAVA MD [facility] SLEEP OBSTRUCTIVE SLEEP APNEA [id number] 09/28/2016 13:00:00 2016 23:59:59 CLS Outpatient AYLEEN SUAREZ DO [facility] RAD [id number] 08/24/2016 09:50:00 2016 23:59:59 CLS Outpatient 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 [facility] RAD R ANKLE PAIN [id number] 07/31/2016 16:04:00 2016 23:59:59 CLS Outpatient 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 [facility] RAD BILAT ANKLE PAIN,FALL [id number] 07/15/2016 14:36:00 2016 23:59:59 CLS Outpatient ISSA SALOMON APRN [facility] RAD NECK PAIN,FALL [id number] 06/16/2016 11:26:00 2016 23:59:59 CLS Outpatient 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 [facility] RAD NECK PAIN [id number] 04/03/2016 14:49:00 2015 23:59:59 CLS Outpatient 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 [facility] RAD STERNUM PAIN [id number] 03/07/2016 13:38:00 2015 23:59:59 CLS Outpatient ISSA SALOMON PACK OPERATOR [facility] RAD LOW BACK PAIN [id number] 03/02/2016 20:09:00 2015 20:15:00 DIS Emergency FINN NO, CALLUM Meeks [facility] ER FALL,ANXIETY [id number] 10/22/2015 00:09:00 2015 23:59:59 CLS Preadmit 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 [facility] SDC VIT B DEFICIENCY [id number] 09/13/2015 15:45:00 2015 00:01:00 DIS Outpatient 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 [facility] VIT B DEFICIENCY [id number] 08/15/2015 16:54:00 2015 23:59:59 CLS Outpatient 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 [facility] RAD NECK PAIN [id number] 05/06/2015 13:29:00 2015 00:01:00 DIS Outpatient 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 [facility] VIT B DEFICIENCY [id number] 06/25/2015 15:38:00 2015 23:59:59 CLS Outpatient 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 [facility] RAD RIGHT FOOT PAIN [id number] 05/23/2015 17:13:00 2014 23:59:59 CLS Outpatient ROBERT MCKEON 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 [facility] QUICK [id number] 02/26/2015 13:04:00 2014 00:01:00 DIS Outpatient 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 [facility] VIT B DEFICIENCY [id number] 02/22/2015 11:43:00 2014 12:10:00 DIS Outpatient 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P [facility] REHAB R KNEE PAIN; R LEG WEAKNESS [id number] 01/08/2015 16:42:00 2014 23:59:59 CLS Outpatient KIMBERLI MONDRAGON 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 [facility] QUICK [id number] 11/15/2014 00:11:00 2014 23:59:59 CLS Preadmit 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 [facility] VIT B DEFICIENCY [id number] 11/14/2014 14:31:00 2014 00:01:00 DIS Outpatient 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 [facility] VIT B DEFICIENCY [id number] 06/05/2014 13:02:00 2014 00:01:00 DIS Outpatient 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 [facility] VIT B DEFICIENCY [id number] 06/05/2014 13:23:00 2013 23:59:59 CLS Outpatient 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 [facility] RAD RT ANKLE PAIN [id number] 12/13/2013 15:29:00 2013 23:59:59 CLS Outpatient SAILAJA NO, SVETLANA Aguilera [facility] RT RESPIRATORY DISTRESS,ACUTE BRONCHOSPASM [id number] 10/27/2013 13:01:00 2013 00:01:00 DIS Outpatient 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 [facility] VIT B DEFICIENCY [id number] 05/09/2013 02:23:00 2012 04:14:00 DIS Emergency FINN NO, CALLUM Meeks [facility] ER LEFT LEG PAIN-FALL [id number] 09/15/2012 08:29:00 Document Registration [id number] 07/21/2012 09:36:00 Document Registration [id number] 06/03/2012 06:09:00 Document Registration [id number] 03/07/2012 16:08:00 Document Registration [id number] 02/15/2012 13:54:00 Document Registration [id number] 12/21/2011 14:00:00 Document Registration [id number] 11/23/2011 11:36:00 Document Registration [id number] 06/29/2011 15:31:00 Document Registration [id number] 04/24/2011 20:13:00 Document Registration [id number] 03/12/2011 16:29:00 Document Registration [id number] 02/02/2011 11:28:00 Document Registration [id number] 11/20/2010 14:28:00 Document Registration [id number] 07/07/2010 11:10:00 Document Registration [id number] 05/08/2010 15:39:00 Document Registration [id number] 11/21/2009 10:52:00 Document Registration
[2017-04-19] MEDS ORDERED: DIAZ10TA3 PO (20:32)
--- NOTE | 2017-04-19 21:58 | Diagnostic Imaging Report ---
PROCEDURE: CT head without contrast. TECHNIQUE: Multiple contiguous axial images were obtained through the brain without the use of intravenous contrast. INDICATION: Status post fall backwards, striking posterior aspect of head 2 days earlier with continued headache and blurred vision, dizziness. CORRELATION STUDY: 04/17/2017 FINDINGS: The ventricles and sulci appear relatively stable. No evidence for acute intracranial hemorrhage. No midline shift or mass effect. Previous findings demonstrate hypodensity in the right cerebellar hemisphere. On followup, this overall appears to be less pronounced and the posterior fossa has an unremarkable appearance. No definitive evidence for areas of decreased attenuation reflect edema. Bony calvarium intact with the visualized paranasal sinuses and mastoid air cells clear. IMPRESSION: 1. Negative for acute intracranial abnormality. The previously noted area of low-attenuation in the right cerebellum is less pronounced on followup. This may have been artifactual on prior imaging. Given continued symptoms, if further assessment is desired, followup MRI would be recommended. Dictated by: Dictated on workstation # [id number]
--- NOTE | 2017-04-19 22:14 | ED Headache ---
General Chief Complaint: General Problems/Pain Stated Complaint: BLURRY VISION,SLURRED SPEECH POST HEAD LAC Nursing Triage Note: Ambulatory to ED 5. Pt reports numerous questions regarding instructions at discharge 48 hrs ago. Pt in ED 04/17/17 after a fall. Pt feels vision gets blurry when turning head side to side and feels her words she says are not what she means. Pt is groggy in appearance and slow verbalization with clear speech. Pt brings an extensive med list. Nursing Sepsis Screen: No Definite Risk Source: patient, family Exam Limitations: other (poor historian and sedated. ) History of Present Illness Time seen by provider: 20:09 Initial Comments 51 -year-old female patient presents to the emergency department with complaints of increased headache, blurred vision, and slurred speech. History is difficult as patient is very sedated and a poor historian. Mother fills in the gaps to patient's story due to patient tends to get off subject frequently. Patient was seen in the emergency department on 04/17/17 for fall, minor head injury, cervical neck sprain, and laceration of the scalp. Patient reports she was writing an e-mail to someone last night and noticed at that time that all of her words in the email were jumbled and did not make sense. Mary also c/ o not being able to open her eyes, but is able to open them to find pictures that she took of herself (selfies) yesterday prior to coming to the ED and while in the ED waiting room. Patient states she last took her dose of valium, hydrocodone, trazadone, and flexeril at 1700 tonight. Patient c/o feeling sedated. Denies any falls or injuries since being seen on 17 April. see H&P from 04/17/17. Timing/Duration: other (2-3 days, worse today) Severity/Quality: pressure, throbbing Location: temporal (rt temporal), parietal (rt parietal) Prior Headaches/Recent Trauma: head trauma > 24 hrs ago (see H&P from 04/17/17. ) Modifying Factors: worse with other (no improvement with home medications.) Allergies and Home Medications Allergies Coded Allergies: Sulfa (Sulfonamide Antibiotics) (Verified Allergy, Unknown, 08/29/13) latex (Verified Allergy, Unknown, 08/29/13) Home Medications Albuterol Sulfate 1 Puff Puff, 1 PUFF IH BID, #0 Prescribed by: EULOGIO ARNDT on 08/29/131841 Atorvastatin 20 Mg Tablet, 1 EACH PO DAILY, #0 Prescribed by: EULOGIO ARNDT on 08/29/131841 Budesonide/Formoterol Fumarate 10.2 Gm Hfa.aer.ad, 1 PUFF IH BID, #0 Prescribed by: EULOGIO ARNDT on 08/29/131841 Cyclobenzaprine Hcl 10 Mg Tablet, 1 EACH PO TID, #0 Prescribed by: EULOGIO ARNDT on 08/29/131841 Diazepam 10 Mg Tablet, 10 MG PO QID, (Reported) Fish Oil/Fat No.8/Hrb Comb.137 1,200 Mg Capsule, 1,200 MG PO QID, #0 Prescribed by: EULOGIO ARNDT on 08/29/131841 Hydrocodone Bit/Acetaminophen 1 Each Tablet, 1 EACH PO QID, #0 Prescribed by: EULOGIO ARNDT on 08/29/131841 Metoprolol Tartrate 25 Mg Tablet, 0.5 TAB PO BID, #0 TAKES 1/2 OF 25 MG TAB BID (12.5 MG BID) Prescribed by: EULOGIO ARNDT on 08/29/131841 Milnacipran Hcl 100 Mg Tablet, 100 MG PO DAILY, #0 Prescribed by: EULOGIO ARNDT on 08/29/131841 Pantoprazole Sodium 40 Mg Tablet.dr, 40 MG PO DAILY, #0 Prescribed by: EULOGIO ARNDT on 08/29/131841 Pyridoxine/Melatonin 1 Tab Tablet, 2 TAB PO HS, #0 Prescribed by: EULOGIO ARNDT on 08/29/131841 Quetiapine Fumarate 100 Mg Tablet, 2 TAB PO HS, #0 Prescribed by: EULOGIO ARNDT on 08/29/131841 Trazodone Hcl 100 Mg Tab, 2 TAB PO HS, #0 Prescribed by: EULOGIO ARNDT on 08/29/131841 Valerian Root 1,000 Gm Powder, 1,000 GM MC DAILY, #0 Prescribed by: EULOGIO ARNDT on 08/29/131841 Venlafaxine Hcl 150 Mg Cap.sr.24h, 1 EACH PO TID, #0 Prescribed by: EULOGIO ARNDT on 08/29/131841 [Remicade] , IV Q 8 WKS Prescribed by: EULOGIO Deleon HAIR on 08/29/131841 Constitutional: No chills, No diaphoresis, dizziness, other (fatigue and generalized weakness.) Eyes: Blurred Vision, Denies Drainage, Denies Pain, Denies Photophobia ( patient denies photophobia, but is noted to be wearing sunglasses in the exam room.), Denies Tunnel Vision, Glasses Ears, Nose, Mouth, Throat: denies ear pain, denies ear discharge, denies nose pain, denies nose discharge, denies epistaxis, denies mouth pain, denies loose teeth, denies throat pain Respiratory: No cough, No dyspnea on exertion, No orthopnea, No short of breath Cardiovascular: No chest pain, No palpitations, No syncope Gastrointestinal: No abdominal pain, No constipation, No diarrhea, No nausea, No vomiting Genitourinary: no symptoms reported Musculoskeletal: No back pain, No joint pain, muscle pain, muscle stiffness, neck pain (chronic neck pain) Skin: see HPI, No change in color Psychiatric/Neurological: See HPI, Headache, Denies Numbness, Denies Paresthesia, Pre-Existing Deficit (neuropathy of the BLE), Denies Seizure, Denies Tingling, Denies Weakness (denies one sided weakness) All Other Systems Reviewed Negative Unless Noted: Yes (Negative excepted noted.) Past Givpocj-Effbnr-Wpfnvn Hx Patient Social History Alcohol Use: Denies Use Recreational Drug Use: No Smoking Status: Never a Smoker 2nd Hand Smoke Exposure: No Recent Foreign Travel: No Contact w/Someone Who Travel: No Recent Infectious Disease Expo: No Recent Hopitalizations: No Immunizations Up To Date Tetanus Booster (TDap): Unknown Date of Pneumonia Vaccine: Mar 07, 2013 Date of Influenza Vaccine: Mar 07, 2013 Seasonal Allergies Seasonal Allergies: Yes Surgeries History of Surgeries: Yes (COLONOSCOPY) Respiratory History of Respiratory Disorde: Yes (SOB WITH EXERTION, USES INHALERS, SLEEP APNEA/CPAP) Respiratory Disorders: Asthma, COPD Cardiovascular History of Cardiac Disorders: Yes Neurological History of Neurological Disord: Yes Reproductive System : No 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 Genitourinary History of Genitourinary Disor: No Gastrointestinal History of Gastrointestinal Di: Yes Gastrointestinal Disorders: Gastroesophageal Reflux, Crohns Disease Musculoskeletal History of Musculoskeletal Dis: Yes (OSTEOARTHRITIS) Musculoskeletal Disorders: Fibromyalgia Endocrine History of Endocrine Disorders: No Cancer History of Cancer: No Psychosocial History of Psychiatric Problem: Yes Behavioral Health Disorders: Depression Integumentary History of Skin or Integumenta: No Reviewed Nursing Assessment Reviewed/Agree w Nursing PMH: Yes Family Medical History Significant Family History: No Pertinent Family Hx Physical Exam Vital Signs Vital Sign - Last 12Hours 04/19/17 20:04 Temp 96.9 Pulse 98 Resp 20 B/P (MAP) 141/80 Pulse Ox 96 O2 Delivery Room Air Capillary Refill : Less Than 3 Seconds General Appearance: WD/WN, no apparent distress, other (disheveled. patient keeps her eyes closed throughout the exam (with the exception of when she is trying to show this examiner pictures of herself that she took yesterday at home and in the ED waiting room). patient is noted to be wearing sunglasses. slurred speech. sedated, but does not fall asleep during the visit. answers questions appropriately.) HEENT: PERRL/EOMI, normal ENT inspection, TMs normal, pharynx normal, other ( no evidence of da silva sign or raccoon eyes. laceration of the rt superior scalp intact without cellulitis.) Neck: supple, normal inspection, limited range of motion, tender lateral, No tender midline, other (muscle spasm of the bilateral posterior neck with L>R.) Cardiovascular: normal peripheral pulses, regular rate, rhythm, no edema, no murmur Respiratory: chest non-tender, lungs clear, normal breath sounds, no respiratory distress, no accessory muscle use Gastrointestinal: normal bowel sounds, non tender, soft, no organomegaly, No distended Back: normal inspection, no vertebral tenderness, muscle spasm (L>R (initially patient does not grimace. once asked if the palpation of the muscles is painful , patient grimaces and says that it hurts really bad.)) Extremities: normal range of motion, non-tender, normal inspection, no pedal edema, normal capillary refill, pelvis stable Psychiatric: oriented x 3, depressed affect, other (sedated, but does not fall asleep during the visit. ) Crainal Nerves: normal hearing, PERRL, abnormal speech (slurred speech. answers questions appropriately.), No facial paresthesias, No facial weakness, No gaze palsy, No tongue deviation to R, No tongue deviation to L, other ( patient keeps her eyes closed throughout the exam (with the exception of when she is trying to show this examiner pictures of herself that she took yesterday at home and in the ED waiting room). After eyelids were manually opened by this examiner patient is noted to open and close the eyelids several times without difficulty.) Coordination/Gait: normal gait (patient ambulates to the exam room with the assistance of crutches. patient states she uses crutches at home for assistance with ambulation and this is normal for her.), other (due to sedation and "not being able to open her eyelids" she is not able to do the finger to nose and romberg testing.) Motor/Sensory: no motor deficit, no sensory deficit, no pronator drift Skin: normal color, warm/dry, No ecchymosis, other (no evidence of da silva sign or raccoon eyes. laceration of the rt superior scalp intact without cellulitis. ) Progress/Results/Core Measures Results/Orders My Orders Orders - JULIETTE REYES Ct Head Wo (04/19/17 20:35) Hydrocodone/Apap 10/325 Tablet (Lortab 1 (04/19/17 22:52) Vital Signs/I&O Vital Sign - Last 12Hours 04/19/17 20:04 Temp 96.9 Pulse 98 Resp 20 B/P (MAP) 141/80 Pulse Ox 96 O2 Delivery Room Air Blood Pressure Mean: 100 Diagnostic Imaging Diagonstic Imaging: CT Plain Films/CT/US/NM/MRI: head Comments CT HEAD WO PROCEDURE: CT head without contrast. TECHNIQUE: Multiple contiguous axial images were obtained through the brain without the use of intravenous contrast. INDICATION: Status post fall backwards, striking posterior aspect of head 2 days earlier with continued headache and blurred vision, dizziness. CORRELATION STUDY: 04/17/2017 FINDINGS: The ventricles and sulci appear relatively stable. No evidence for acute intracranial hemorrhage. No midline shift or mass effect. Previous findings demonstrate hypodensity in the right cerebellar hemisphere. On followup, this overall appears to be less pronounced and the posterior fossa has an unremarkable appearance. No definitive evidence for areas of decreased attenuation reflect edema. Bony calvarium intact with the visualized paranasal sinuses and mastoid air cells clear. IMPRESSION: 1. Negative for acute intracranial abnormality. The previously noted area of low- attenuation in the right cerebellum is less pronounced on followup. This may have been artifactual on prior imaging. Given continued symptoms, if further assessment is desired, followup MRI would be recommended. Dictated by: Dictated on workstation # [id number] Reviewed: Reviewed by Me (radiology report reviewed by me) Departure Communication (Admissions) Progress Notes patient seen and evaluated. CT scan of the head obtained. Throughout the emergency department visit patient is noted to become more alert, speech is clear, and patient is opening her eyes without difficulty. Patient is able to keep them open by the end of the visit. At the time of dismissal patient is noted to be alert, oriented 3, no acute distress. Normal speech. Patient is speaking and answering questions appropriately. Patient is able to keep eyes open without difficulty. Diagnostic findings were discussed with the patient. I have reviewed patient's medications patient is noted to be on several sedating medications including cyclobenzaprine 10 mg 1 tablet by mouth 3 times daily, [place] 10/325 mg one to 2 tablets by mouth 4 times daily, Valium 10 mg 1 tablet by mouth 4 times daily, trazodone 200 mg at bedtime, tramadol 1-2 tablets by mouth 3 times daily, Seroquel 100 mg once daily, melatonin, and valerian root herbal supplement (known to cause sedation). I discussed the amount of sedating medications with the patient as well as noting patient to become more alert with normal speech during the emergency department visit. I have advised her that she is on multiple sedating medications and that she needs to follow up with Valentina Smith and/or Dr. Thompson for discussion of all be sedating medications and possible need for decreased dosages. Patient was noted on previous visit to also have improved mental status with improved speech after 1700 medications had metabolized from the patient's system. Patient becomes agitated and states she is only able to open her eyes and speak clearly now because "I have been practicing while I was waiting for my test results" and "it took a lot of really smart doctors that actually know what the medications do and how they interact to get me on the medications I need to be on!" Patient states she has been speaking to her mother during the entire visit to "practice" speaking clearly. Patient also states she has been rubbing the back of her neck at her "pressure points" and this has made it to where she can open her eyes fully. I advised the patient that I would still like for her to f/u with her PCP for discussion of medications and that I will be sending a copy of my note to their office. Patient is noted to have increased agitation when told that a copy of my note would be going to their office for review. Plan for discharge to home with patient continuing all medications until she can follow up with Dr. Thompson's office for review. Patient did refuse the evening dose of hydrocodone that was ordered in the emergency department. Patient states she would like to be awake so that she "can be a good navigator for her mother." All return precautions were discussed with the patient. Patient verbalizes understanding and agrees with plan for discharge and follow- up with Dr. Thompson's office. Patient ambulated from the emergency department with the assistance of personal crutches without difficulty. Impression Impression: Primary Impression: Minor head injury Qualified Codes: S00.90XD - Unspecified superficial injury of unspecified part of head, subsequent encounter Additional Impression: exacerbation of chronic neck pain Disposition: HOME, SELF-CARE Condition: Improved Departure-Patient Inst. Decision time for Depature: 22:49 Referrals: JOSE THOMPSON MD (PCP/Family) Primary Care Physician Patient Instructions: CHRONIC PAIN Add. Discharge Instructions: All discharge instructions reviewed with patient and/or family. Voiced understanding. Continue usual home medications until you can sit down with Dr. Thompson or Valentina Smith APRN to discuss possible need for a decrease in your medication dosages. DO NOT TAKE YOUR HYDROCODONE/APAP BEDTIME DOSE YOU HAVE BEEN GIVEN A DOSE OF HYDROCODONE/APAP 10MG/325 MG IN THE EMERGENCY DEPARTMENT JUST PRIOR TO DISMISSAL. Avoid any activities which may result in head injury for 7 days after headache resolves. Ice pack for 20 minute intervals as needed for pain or headache. No strenuous activity, Smart phones, computers, videogames, television until released by your primary care provider. Follow-up with Dr. Thompson or Valentina Smith APRN this week for recheck, call tomorrow morning for appointment time. Return to the emergency department for worsened symptoms or any other concerns. Copy Copies To 1: JOSE THOMPSON MD, GRETCHEN L PA Apr 19, 2017 22:13
[2017-04-19] MEDS ORDERED: HYDROcodone/APAP 10 MG/325 MG (LORTAB) TAB PO STA (22:52)
[2017-04-19 23:04] VITALS: BP 136/76
== END 2017-04-19 23:04 | disposition home or self-care (01) ==
LOC: EDUNIT# 19:31 → ER 19:33
DX: S09.90XD Unspecified injury of head, subsequent encounter (principal); M54.2 Cervicalgia; G89.29 Other chronic pain; J44.9 Chronic obstructive pulmonary disease, unspecified; K21.9 Gastro-esophageal reflux disease without esophagitis; F32.9 Major depressive disorder, single episode, unspecified; Z87.19 Personal history of other diseases of the digestive system; W19.XXXD Unspecified fall, subsequent encounter
CPT/HCPCS: 70450; 99281

== ENCOUNTER → 2017-07-01 | Outpatient (CLI) | payer MEDICARE ==
[~2017-07-01] VITALS: Ht 172.7 cm; Wt 92.5 kg
[~2017-07-01] MED LIST changes: +methylPREDNISolone 80 MG/ML (DEPO MEDROL) VIAL ONE
[2017-07-01 14:07] VITALS: BP 98/79
[2017-07-01 14:22] VITALS: BP 103/79
== END ==
LOC: CARD 13:34
PROVIDERS: ATTEND Pain Medicine Interventional Pain Medicine
DX: M46.1 Sacroiliitis, not elsewhere classified (principal)

== ENCOUNTER 2017-09-09 02:46 | Emergency (ER) | payer MEDICARE ==
[~2017-09-09] VITALS: Ht 175.3 cm; Wt 91.6 kg
[~2017-09-09 02:46] MED LIST changes: -methylPREDNISolone 80 MG/ML (DEPO MEDROL) VIAL ONE
[2017-09-09] MEDS ORDERED: NS IV 1000 ML 1,000 ML IV ONE (02:52)
[2017-09-09] MEDS ORDERED: ONDANSETRON 4 MG/2 ML (SDV) Z0FRAN IVP ONE (03:00)
[2017-09-09 03:06] LABS: BASOPHILS % (AUTO) 0 % (0-10); EOSINOPHILS # (AUTO) 0.1 10^3/uL (0.0-0.3); EOSINOPHILS % (AUTO) 1 % (0-10); HEMATOCRIT 37 % (35-52); HEMOGLOBIN 12.2 G/DL (11.5-16.0); LYMPHOCYTES # (AUTO) 2.9 X 10^3 (1.0-4.0); LYMPHOCYTES % (AUTO) 32 % (12-44); MEAN CORPUSCULAR HEMOGLOBIN 33 PG (25-34); MEAN CORPUSCULAR HGB CONC 33 G/DL (32-36); MEAN CORPUSCULAR VOLUME 99 FL (80-99); MEAN PLATELET VOLUME 8.8 FL (7.4-10.4); MONOCYTES % (AUTO) 11 % (0-12); NEUTROPHILS # (AUTO) 5.2 X 10^3 (1.8-7.8); NEUTROPHILS % (AUTO) 57 % (42-75); PLATELET COUNT 238 10^3/uL (130-400); RED BLOOD COUNT 3.74 10^6/uL (4.35-5.85); RED CELL DISTRIBUTION WIDTH 12.8 % (10.0-14.5); WHITE BLOOD COUNT 9.1 10^3/uL (4.3-11.0)
[2017-09-09 03:30] LABS: ALANINE AMINOTRANSFERASE 23 U/L (0-55); ALBUMIN 4.7 GM/DL (3.2-4.5); ALKALINE PHOSPHATASE 64 U/L (40-136); BILIRUBIN,TOTAL 0.6 MG/DL (0.1-1.0); BUN/CREATININE RATIO 18; CALCIUM 9.5 MG/DL (8.5-10.1); CARBON DIOXIDE 22 MMOL/L (21-32); CHLORIDE 101 MMOL/L (98-107); GFR ESTIMATED > 60; GLUCOSE 112 MG/DL (70-105); LIPASE 32 U/L (8-78); POTASSIUM 2.9 MMOL/L (3.6-5.0); SODIUM 138 MMOL/L (135-145); TOTAL PROTEIN 7.4 GM/DL (6.4-8.2)
[2017-09-09] MEDS ORDERED: LACT10SO46 (03:35)
[2017-09-09] MEDS ORDERED: TRAM50TA2 (03:35)
[2017-09-09] MEDS ORDERED: PROM25TA14 (03:35)
[2017-09-09 03:43] LABS: ERYTHROCYTE SEDIMENTATION RATE 16 MM/HR (0-30)
[2017-09-09] MEDS ORDERED: NS W/KCL 40 MEQ/L 1,000 ML IV ONE (03:55)
[2017-09-09] MEDS ORDERED: POTASSIUM CHLORIDE INJ 40 MEQ in NS IV 1000 ML 1,000 ML IV ONE (04:00)
[2017-09-09] MEDS ORDERED: NS 250 ML (IVPB) BAG IV ONE (04:15)
[2017-09-09] MEDS ORDERED: IOHEXOL 350 MG/ML 100 ML (OMNIPAQUE 350) VIAL IV ONE (04:15)
[2017-09-09 04:35] LABS: BILIRUBIN,URINE NEGATIVE (NEGATIVE); CLARITY,URINE SLIGHTLY CLOUDY; COLOR,URINE YELLOW; GLUCOSE, URINE (UA) NEGATIVE (NEGATIVE); KETONES,URINE 2+ (NEGATIVE); LEUKOCYTE ESTERASE ,URINE 2+ (NEGATIVE); NITRITE,URINE NEGATIVE (NEGATIVE); PH,URINE 5 (5-9); PROTEIN,URINE 1+ (NEGATIVE); UROBILINOGEN,URINE NORMAL (NORMAL)
[2017-09-09 04:42] LABS: BACTERIA,URINE MODERATE /HPF; SQUAMOUS EPITHELIAL CELL,UR 0-2 /HPF
--- NOTE | 2017-09-09 04:54 | ED Abdominal Pain ---
General Chief Complaint: Abdominal/GI Problems Stated Complaint: ABD PAIN Nursing Triage Note: PT BROUGHT IN BY EMS WITH COMPLAINT OF ABD PAIN. STATES SHE HAS CROHNS AND HAS NOT HAD A BM FOR 2 DAYS, Sepsis Screen: No Definite Risk Source of Information: Patient, EMS Exam Limitations: No Limitations History of Present Illness Date Seen by Provider: Sep 09, 2017 Time Seen by Provider: 02:48 Initial Comments This 52-year-old woman with known Crohn's disease presents to the emergency room with abdominal pain and distention for the past 2-3 days. She reports having an episode of diarrhea 2 days ago and no bowel movement since then. Pain and abdominal distention have worsened since then. Patient did vomit earlier as well. Allergies and Home Medications Allergies Coded Allergies: Sulfa (Sulfonamide Antibiotics) (Verified Allergy, Unknown, 08/29/13) latex (Verified Allergy, Unknown, 08/29/13) Home Medications Albuterol Sulfate 1 Puff Puff, 1 PUFF IH BID Prescribed by: EULOGIO ARNDT on 08/29/131841 Atorvastatin 20 Mg Tablet, 1 EACH PO DAILY Prescribed by: EULOGIO ARNDT on 08/29/131841 Budesonide/Formoterol Fumarate 10.2 Gm Hfa.aer.ad, 1 PUFF IH BID Prescribed by: EULOGIO ARNDT on 08/29/131841 Ciprofloxacin HCl 500 Mg Tablet, 500 MG PO BID Prescribed by: CALLUM DUBON on 09/09/17 0539 Cyclobenzaprine Hcl 10 Mg Tablet, 1 EACH PO TID Prescribed by: EULOGIO ARNDT on 08/29/131841 Diazepam 10 Mg Tablet, 10 MG PO QID, (Reported) Fish Oil/Fat No.8/Hrb Comb.137 1,200 Mg Capsule, 1,200 MG PO QID Prescribed by: EULOGIO ARNDT on 08/29/131841 Hydrocodone Bit/Acetaminophen 1 Each Tablet, 1 EACH PO QID Prescribed by: EULOGIO ARNDT on 08/29/131841 Metoprolol Tartrate 25 Mg Tablet, 0.5 TAB PO BID TAKES 1/2 OF 25 MG TAB BID (12.5 MG BID) Prescribed by: EULOGIO ARNDT on 08/29/131841 Metronidazole 500 Mg Tablet, 500 MG PO TID Prescribed by: CALLUM DUBON on 09/09/17538 Milnacipran Hcl 100 Mg Tablet, 100 MG PO DAILY Prescribed by: EULOGIO ARNDT on 08/29/131841 Ondansetron 4 Mg Tab.rapdis, 4 MG SL Q4H PRN for NAUSEA/VOMITING-1ST LINE Prescribed by: CALLUM DUBON on 09/09/17538 Pantoprazole Sodium 40 Mg Tablet.dr, 40 MG PO DAILY Prescribed by: EULOGIO ARNDT on 08/29/131841 Prednisone 20 Mg Tab, 20 MG PO DAILY Prescribed by: CALLUM DUBON on 09/09/17538 Pyridoxine/Melatonin 1 Tab Tablet, 2 TAB PO HS Prescribed by: EULOGIO ARNDT on 08/29/131841 Quetiapine Fumarate 100 Mg Tablet, 2 TAB PO HS Prescribed by: EULOGIO ARNDT on 08/29/131841 Trazodone Hcl 100 Mg Tab, 2 TAB PO HS Prescribed by: EULOGIO ARNDT on 08/29/131841 Valerian Root 1,000 Gm Powder, 1,000 GM MC DAILY Prescribed by: EULOGIO ARNDT on 08/29/131841 Venlafaxine Hcl 150 Mg Cap.sr.24h, 1 EACH PO TID Prescribed by: EULOGIO ARNDT on 08/29/131841 [Remicade] , IV Q 8 WKS Prescribed by: EULOGIO ARNDT on 08/29/131841 Patient Home Medication List Home Medication List Reviewed: Yes Review of Systems Constitutional: no symptoms reported EENTM: No Symptoms Reported Respiratory: No Symptoms Reported Cardiovascular: No Symptoms Reported Gastrointestinal: See HPI Genitourinary: No Symptoms Reported Musculoskeletal: no symptoms reported Skin: no symptoms reported Psychiatric/Neurological: No Symptoms Reported Endocrine: No Symptoms Reported Past Cfqiykx-Nthcum-Jcqbqi Hx Patient Social History Alcohol Use: Denies Use Recreational Drug Use: No Smoking Status: Never a Smoker 2nd Hand Smoke Exposure: No Recent Foreign Travel: No Contact w/Someone Who Travel: No Recent Infectious Disease Expo: No Recent Hopitalizations: No Immunizations Up To Date Tetanus Booster (TDap): Unknown Date of Pneumonia Vaccine: Mar 07, 2013 Date of Influenza Vaccine: Mar 07, 2013 Seasonal Allergies Seasonal Allergies: Yes Surgeries History of Surgeries: Yes (COLONOSCOPY) Respiratory History of Respiratory Disorde: Yes Respiratory Disorders: Asthma, Sleep Apnea, COPD Cardiovascular History of Cardiac Disorders: Yes Cardiac Disorders: Hypertension Neurological History of Neurological Disord: Yes Neurological Disorders: Headaches /Migraines 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 Genitourinary History of Genitourinary Disor: No Gastrointestinal History of Gastrointestinal Di: Yes Gastrointestinal Disorders: Gastroesophageal Reflux, Crohns Disease Musculoskeletal History of Musculoskeletal Dis: Yes (CHRONIC NECK PAIN, OSTEOARTHRITIS) Musculoskeletal Disorders: Fibromyalgia Endocrine History of Endocrine Disorders: No HEENT History of HEENT Disorders: No Cancer History of Cancer: No Psychosocial History of Psychiatric Problem: Yes Behavioral Health Disorders: Depression Integumentary History of Skin or Integumenta: No Family Medical History Significant Family History: No Pertinent Family Hx Physical Exam Vital Signs VS - Last 72 Hours, by Label 09/09/17 02:46 Temp 98.0 Pulse 107 Resp 20 B/P (MAP) 141/108 (119) Pulse Ox 98 O2 Delivery Room Air Capillary Refill : Less Than 3 Seconds General Appearance: WD/WN, mild distress HEENT: PERRL/EOMI, normal ENT inspection, pharynx normal Neck: normal inspection Respiratory: lungs clear, normal breath sounds, no respiratory distress, no accessory muscle use Cardiovascular: regular rate, rhythm, no edema, no murmur Gastrointestinal: normal bowel sounds, soft, tenderness (Diffuse) Extremities: normal inspection, no pedal edema Neurologic/Psychiatric: plasterer tender II-XII nml as tested, no motor/sensory deficits, alert, normal mood/affect, oriented x 3 Skin: normal color, warm/dry Progress/Results/Core Measures Results/Orders Lab Results Laboratory Tests Test 09/09/17 03:00 09/09/17 04:29 Range/Units White Blood Count 9.1 4.3-11.0 10^3/uL Red Blood Count 3.74 L 4.35-5.85 10^6/uL Hemoglobin 12.2 11.5-16.0 G/DL Hematocrit 37 35-52 % Mean Corpuscular Volume 99 80-99 FL Mean Corpuscular Hemoglobin 33 25-34 PG Mean Corpuscular Hemoglobin Concent 33 32-36 G/DL Red Cell Distribution Width 12.8 10.0-14.5 % Platelet Count 238 130-400 10^3/uL Mean Platelet Volume 8.8 7.4-10.4 FL Neutrophils (%) (Auto) 57 42-75 % Lymphocytes (%) (Auto) 32 12-44 % Monocytes (%) (Auto) 11 0-12 % Eosinophils (%) (Auto) 1 0-10 % Basophils (%) (Auto) 0 0-10 % Neutrophils # (Auto) 5.2 1.8-7.8 X 10^3 Lymphocytes # (Auto) 2.9 1.0-4.0 X 10^3 Monocytes # (Auto) 1.0 0.0-1.0 X 10^3 Eosinophils # (Auto) 0.1 0.0-0.3 10^3/uL Basophils # (Auto) 0.0 0.0-0.1 10^3/uL Erythrocyte Sedimentation Rate 16 0-30 MM/HR Sodium Level 138 135-145 MMOL/L Potassium Level 2.9 L 3.6-5.0 MMOL/L Chloride Level 101 98-107 MMOL/L Carbon Dioxide Level 22 21-32 MMOL/L Anion Gap 15 H 5-14 MMOL/L Blood Urea Nitrogen 14 7-18 MG/DL Creatinine 0.80 0.60-1.30 MG/DL Estimat Glomerular Filtration Rate > 60 BUN/Creatinine Ratio 18 Glucose Level 112 H 70-105 MG/DL Calcium Level 9.5 8.5-10.1 MG/DL Total Bilirubin 0.6 0.1-1.0 MG/DL Aspartate Amino Transf (AST/SGOT) 18 5-34 U/L Alanine Aminotransferase (ALT/SGPT) 23 0-55 U/L Alkaline Phosphatase 64 40-136 U/L C-Reactive Protein High Sensitivity 0.75 H 0.00-0.50 MG/DL Total Protein 7.4 6.4-8.2 GM/DL Albumin 4.7 H 3.2-4.5 GM/DL Lipase 32 8-78 U/L Urine Color YELLOW Urine Clarity SLIGHTLY CLOUDY Urine pH 5 5-9 Urine Specific [place] 1.025 H 1.016-1.022 Urine Protein 1+ H NEGATIVE Urine Glucose (UA) NEGATIVE NEGATIVE Urine Ketones 2+ H NEGATIVE Urine Nitrite NEGATIVE NEGATIVE Urine Bilirubin NEGATIVE NEGATIVE Urine Urobilinogen NORMAL NORMAL MG/DL Urine Leukocyte Esterase 2+ H NEGATIVE Urine RBC (Auto) NEGATIVE NEGATIVE Urine RBC NONE /HPF Urine WBC 5-10 H /HPF Urine Squamous Epithelial Cells 0-2 /HPF Urine Crystals NONE /LPF Urine Bacteria MODERATE H /HPF Urine Casts NONE /LPF Urine Mucus MODERATE H /LPF Urine Culture Indicated YES My Orders Orders - CALLUM BRISENO MD Cbc With Automated Diff (09/09/17 02:52) Comprehensive Metabolic Panel (09/09/17 02:52) Hs C Reactive Protein (09/09/17 02:52) Lipase (09/09/17 02:52) Ua Culture If Indicated (09/09/17 02:52) Erythrocyte Sedimentation Rate (09/09/17 02:52) Saline Lock/Iv-Start (09/09/17 02:52) Ns Iv 1000 Ml (Sodium Chloride 0.9%) (09/09/17 02:52) Ondansetron Injection (Zofran Injectio (09/09/17 03:00) Ns Iv 1000 Ml (Sodi... W/Potassium Chlor (09/09/17 04:00) Ct Abdomen/Pelvis W (09/09/17 03:51) Ns W/Kcl 40 Meq/L (Ns Iv W/Kcl 40 Meq/L) (09/09/17 03:55) Iohexol Injection (Omnipaque 350 Mg/Ml 1 (09/09/17 04:15) Ns (Ivpb) (Sodium Chloride 0.9%) (09/09/17 04:15) Urine Culture (09/09/17 04:29) Potassium Chloride (Tablet) (Klor Con Ta (09/09/17 05:45) Ciprofloxacin Tablet (Cipro Tablet) (09/09/17 05:45) Metronidazole Tablet (Flagyl Tablet) (09/09/17 05:45) Methylprednisolone Sod Succ (Solu-Medrol (09/09/17 05:45) Medications Given in ED Current Medications Medications Dose Ordered Sig/Senia Route Start Time Stop Time Status Last Admin Dose Admin Iohexol 100 ml ONCE ONCE IV 09/09/17 04:15 09/09/17 04:16 DC 09/09/17 04:15 100 ML Ondansetron HCl 8 mg ONCE ONCE IVP 09/09/17 03:00 09/09/17 03:01 DC 09/09/17 03:08 8 MG Potassium Chloride 40 meq/ Sodium Chloride 1,020 ml @ 250 mls/hr Q4H5M ONCE IV 09/09/17 04:00 09/09/17 08:04 09/09/17 04:37 250 MLS/HR Sodium Chloride 250 ml ONCE ONCE IV 09/09/17 04:15 09/09/17 04:16 DC 09/09/17 04:15 80 ML Sodium Chloride 1,000 ml @ 0 mls/hr Q0M ONCE IV 09/09/17 02:52 09/09/17 02:55 DC 09/09/17 03:08 1,000 MLS/HR Vital Signs/I&O Vital Sign - Last 12Hours 09/09/17 02:46 Temp 98.0 Pulse 107 Resp 20 B/P (MAP) 141/108 (119) Pulse Ox 98 O2 Delivery Room Air Blood Pressure Mean: 119 Progress Note : Progress Note Patient was treated with IV fluids and IV replacement of potassium. Patient was additionally given oral potassium prior to dismissal as well as her first dose of Flagyl and Cipro. Solu-Medrol was also given for treatment of Crohn's exacerbation. Urinary tract infection was found by urinalysis. Diagnostic Imaging Diagonstic Imaging: CT Plain Films/CT/US/NM/MRI: abdomen, pelvis Comments CT abdomen and pelvis viewed by me and stature rad report reviewed. There was poor distention of the small bowel and colon. Some wall thickening of these portions of the colon cannot be excluded. Colitis cannot be excluded. Departure Impression Impression: Primary Impression: Exacerbation of Crohn's disease Qualified Codes: K50.919 - Crohn's disease, unspecified, with unspecified complications Additional Impressions: Urinary tract infection Qualified Codes: N39.0 - Urinary tract infection, site not specified Hypokalemia Disposition: 01 HOME, SELF-CARE Condition: Improved Departure-Patient Inst. Decision time for Depature: 05:37 Referrals: JOSE RUBALCAVA MD (PCP/Family) Primary Care Physician Patient Instructions: Crohn's Disease (DC), Urinary Tract Infection, Adult (DC) Add. Discharge Instructions: Start with a clear liquid diet and gradually advance your diet with small quantities of bland food as tolerated. Take your medications as prescribed. Follow-up with your primary care provider soon as possible. Return to the emergency room if symptoms worsen. All discharge instructions reviewed with patient and/or family. Voiced understanding. Scripts Prednisone (Prednisone) 20 Mg Tab 20 MG PO DAILY, #4 TAB Prov: CALLUM BRISENO MD 09/09/17 Ondansetron (Zofran Odt) 4 Mg Tab.rapdis 4 MG SL Q4H Y for NAUSEA/VOMITING-1ST LINE, #10 TAB Prov: CALLUM BRISENO MD 09/09/17 Ciprofloxacin HCl (Cipro) 500 Mg Tablet 500 MG PO BID, #14 TAB Prov: CALLUM BRISENO MD 09/09/17 Metronidazole (Flagyl) 500 Mg Tablet 500 MG PO TID, #20 TAB Prov: CALLUM BRISENO MD 09/09/17 CALLUM BRISENO MD Sep 09, 2017 04:54
[2017-09-09] MEDS ORDERED: METR500T PO (05:39)
[2017-09-09] MEDS ORDERED: PRD20T PO (05:39)
[2017-09-09] MEDS ORDERED: CIPR-225 PO (05:39)
[2017-09-09] MEDS ORDERED: ONDA4TAB8 SL (05:39)
[2017-09-09] MEDS ORDERED: methylPREDNISolone 125 MG (Solu-MEDROL) VIAL IVP ONE (05:45)
[2017-09-09] MEDS ORDERED: metroNIDAZOLE 500 MG (FLAGYL) TAB PO ONE (05:45)
[2017-09-09] MEDS ORDERED: KCL 10 MEQ TAB (MICRO K) PO ONE (05:45)
[2017-09-09] MEDS ORDERED: CIPROFLOXACIN 500 MG (CIPRO) TABLET PO ONE (05:45)
[2017-09-09 06:05] VITALS: BP 135/90
--- NOTE | 2017-09-09 08:37 | Diagnostic Imaging Report ---
PROCEDURE: CT abdomen and pelvis with contrast. TECHNIQUE: Multiple contiguous axial images were obtained through the abdomen and pelvis after administration of intravenous contrast. INDICATION: Abdominal pain and constipation. FINDINGS: The heart size is normal. The lung bases are clear. There may be a trace pericardial effusion. The liver is normal in size without focal lesions. The gallbladder is unremarkable. There is no biliary ductal dilatation. The spleen is normal. The pancreas and adrenal glands are unremarkable. The kidneys are normal in appearance. The abdominal aorta is nonaneurysmal. The bowel gas pattern is nonspecific. There is no free air. There is no ascites. There are no focal inflammatory changes. The bladder is normal. There is a moderate amount of retained fecal material in the proximal colon which may reflect some degree of constipation. There are mild degenerative changes in the spine. IMPRESSION: There is a moderate amount of retained fecal material, likely reflecting some degree of constipation; otherwise, nonspecific bowel gas pattern. Questionable trace pericardial effusion. No other acute abnormality in the abdomen or pelvis. Dictated by: Dictated on workstation # [id number]
--- OUTSIDE RECORDS SUMMARY | 2017-09-09 10:04 | XMS REPORT | Clinical Summary ---
Author Author [facility] Organization [facility] Address Unknown Phone Unavailable Care Team Providers Care Devil Tender Name Role Phone Aicha Thompson MD PCP Source Comments Some departments are not documenting in the electronic medical record. 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 KYUNG positive 07/16/2017 Idiopathic polyneuropathy 05/18/2017 Cervical stenosis of spine 04/09/2017 Resolved Problems Problem Noted Date Resolved Date Miosis 04/09/2017 07/16/2017 Numbness in feet 04/09/2017 05/18/2017 Encounters Date Type Specialty Care Team Description 07/16/2017 Office Visit Neurology Kyrie Larios DO Idiopathic polyneuropathy (Primary Dx); Somatoform disorder; KYUNG positive from Last 3 Months Family History Medical [...] Vital Sign Reading Time Taken Blood Pressure 138/89 07/16/2017 10:30 AM DIAMOND GRINDER Pulse 120 07/16/2017 10:30 AM DIAMOND GRINDER Temperature 36 C (96.8 F) 07/16/2017 10:30 AM DIAMOND GRINDER Respiratory Rate 16 07/16/2017 10:30 AM DIAMOND GRINDER Oxygen Saturation 93% 04/09/2017 3:36 PM CDT Inhaled Oxygen - - Concentration Weight 91.2 kg (201 lb) 07/16/2017 10:30 AM DIAMOND GRINDER Height 175.3 cm (5' 9") 07/16/2017 10:30 AM DIAMOND GRINDER Body Mass Index 29.68 07/16/2017 10:30 AM DIAMOND GRINDER Plan of Treatment Health Maintenance Due Date Last Done Comments PHYSICAL (COMPREHENSIVE) 08/25/1974 EXAM PERTUSSIS VACCINE 08/25/1978 TETANUS VACCINE 08/25/1984 CERVICAL CANCER SCREENING 08/25/1997 BREAST CANCER SCREENING 2007 COLORECTAL CANCER 08/25/2017 SCREENING INFLUENZA VACCINE 03/07/2018 HIV SCREENING Completed 04/10/2017 Results Not on filefrom Last 3 Months
--- OUTSIDE RECORDS SUMMARY | 2017-09-09 10:04 | XMS REPORT | Encounter Summary ---
Author Author [facility] Organization [facility] Address Unknown Phone Unavailable Care Team Providers Care Radiographer Mammographer Name Role Phone Aicha Thompson MD PCP Reason for Visit * Reason Comments Numbness in BLE has improved Encounter Details Date Type Department Care Team Description 07/16/2017 [facility] Visit [facility] Neu[facility] Kyrie Larios, Idiopathic polyneuropathy [address] (Primary Dx); [place] [address] MS 2012 Somatoform disorder; [phone] [place] [address] KYUNG positive [phone] Social History Tobacco Use Types Packs/Day Years Used Date Never Smoker Smokeless Tobacco: Never Used Alcohol Use Drinks/Week oz/Week Comments No Sex Assigned at Date Recorded Not on file as of this encounter Last Filed Vital Signs Vital Sign Reading Time Taken Blood Pressure 138/89 07/16/2017 10:30 AM SPREADER OPERATOR Pulse 120 07/16/2017 10:30 AM SPREADER OPERATOR Temperature 36 C (96.8 F) 07/16/2017 10:30 AM SPREADER OPERATOR Respiratory Rate 16 07/16/2017 10:30 AM SPREADER OPERATOR Oxygen Saturation - - Inhaled Oxygen - - Concentration Weight 91.2 kg (201 lb) 07/16/2017 10:30 AM SPREADER OPERATOR Height 175.3 cm (5' 9") 07/16/2017 10:30 AM SPREADER OPERATOR Body Mass Index 29.68 07/16/2017 10:30 AM SPREADER OPERATOR in this encounter Instructions * Patient Instructions - Kyrie Larios DO - 07/16/2017 10:15 AM SPREADER OPERATOR followup with your PCP for mild peripheral neuropathy and your other medical/ nonneurological complaints in this encounter Progress Notes * Kyrie Larios DO - 07/16/2017 10:15 AM SPREADER OPERATOR Formatting of this note may be different from the original. Date of Service: 07/16/2017 Subjective: Mary Olmedo is a 51 y.o. female. History of Present Illness I last saw Mary in clinic on May 18, 2017 for an EMG. On that study, I did left upper and both lower extremities. It was an abnormal study with evidence for mild sensory and motor mixed peripheral neuropathy with mainly axonal features. There is no sign of myopathy or neuromuscular junction defect. Repetitive nerve stimulation was done and was benign. No abnormal neuromuscular process was found. I also ordered MRI head and cervical spine and CT angiogram head and neck. These were done on April 16. CT angiogram of the head was normal. In the neck, it was also normal with cervical degenerative disk disease and facet arthropathy. MRI of the head and neck also from April 16. Brain was unremarkable. Cervical spondylosis most prominent at C5-C6 and C6-C7. Two. There is mild central stenosis at C5-C6 and mild left foraminal narrowing. Mild central stenosis and left foraminal narrowing at C6-C7. Labs from April 10, CBC benign, B12 462, sedimentation rate less than 1, 2- hour glucose tolerance test level at two hours was 127. DEMETRIA normal. TSH 1.2. Acetylcholine receptor, binding antibodies negative. MMA and B6 levels were normal. SPEP and SIFE benign. KYUNG positive with a titer of 640. Rheumatoid factor, C-ANCA and P-ANCA negative. Syphilis antibody and HIV antibodies negative. Mary says that her numbness has been better. She still has little bit of tingling in the feet the morning. There has been no pain. She says one or two days after her last visit with me, she tripped over briefcase, fell and struck her head. She then was evaluated in the emergency room. She had multiple pictures that she brought with her today. They were taken by her mother. She complained of some droopiness of the eye when it happened, which has gotten better. CT head and cervical spine were benign and she brought the reports that I reviewed today. Mary is very tangential again. She is not a good historian. She has multiple somatic complaints unrelated to neurological symptoms. In the past, she has been diagnosed with fibromyalgia and Crohn's disease. There have been no new neurological complaints or concerns otherwise since I last saw her. She has complained of ongoing memory difficulties. ([id number]) Review of Systems Constitutional: Positive for activity change. HENT: Negative. Eyes: Negative. Respiratory: Negative. Cardiovascular: Negative. Gastrointestinal: Negative. Endocrine: Negative. Genitourinary: Negative. Musculoskeletal: Negative. Skin: Negative. Allergic/Immunologic: Negative. Neurological: Negative. Hematological: Negative. Psychiatric/Behavioral: Negative. Chief Complaint: Chief Complaint Patient presents with Numbness in BLE has improved Past Medical History: Past Medical History: Diagnosis Date Crohn's disease (HCC) Diverticulitis of colon (without mention of hemorrhage)(562.11) Fibromyalgia Hypoglycemia Other emphysema (HCC) Sleep apnea Surgical History: Past Surgical History: Procedure Laterality [...] Onset Hypoglycemia Mother Diabetes Father Alzheimer's Father Dementia Father Unknown to Patient Sister Unknown to Patient Brother Hypoglycemia Maternal Grandmother Heart problem Maternal Grandmother Heart problem Maternal Grandfather Parkinson's Maternal Grandfather Alzheimer's Paternal Grandmother Dementia Paternal Grandmother Cancer Paternal Grandfather Unknown to Patient Sister Allergies: Allergies Allergen Reactions Latex HIVES Sulfa (Sulfonamide Antibiotics) UNKNOWN Objective: ACETAMINOPHEN (TYLENOL PO) Take by mouth. ASCORBATE CALCIUM (VITAMIN C PO) Take by mouth. atorvastatin (LIPITOR) 20 mg tablet Take 20 mg by mouth daily. budesonide/formoterol (SYMBICORT) 160/4.5 mcg inhalation Inhale 2 puffs by mouth into the lungs twice daily. calcium carbonate (OS-SHANTE) 260 mg calcium (648 mg) tab Take [...] Take 1 tablet by mouth daily. Vitals: 07/16/17 1030 BP: 138/89 Pulse: 120 Resp: 16 Temp: 36 C (96.8 F) TempSrc: Oral Weight: 91.2 kg (201 lb) Height: 175.3 cm (69") Body mass index is 29.68 kg/m. No Data Recorded Is a controlled substance agreement on file? Not Applicable Physical Exam General: MG/WN/WD, obese, tangential affect, multiple somatic complaints, inattentive, cooperative, follows commands HEENT: NC/AT Cardiac: RRR without murmur Neck: supple Speech: fluent, no dysarthria or aphasia Mental status: Alert, oriented x 4, NAD CN: PERRL, EOMI, facial sensation inconsistent today to LT, No facial droop, no ptosis, palatal rise symmetric, shoulder shrug symmetric, tongue midline Motor: tone normal, no rigidity or spasticity, no pronator drift of upper extremities Strength: poor effort, giveaway weakness diffusely with exaggerated pattern 4/4 SA/EF, 4+/4+ EE, 4/4 WF; HF 4/4, KE 5/5, DF/EV/IV 4+/4+, PF 5/5 No involuntary movements, no tremor Sensation: no consistent dermatomal deficit in limbs to PP DTRs, 1/ in BR/B, 2/2 P, 0/0 A, downgoing plantar reflexes bilaterally Gait: wide based, antalgic, functional pattern Assessment and Plan: 1. Mild sensorimotor polyneuropathy. 2. Somatoform disorder. 3. Positive KYUNG. 4. Recent mild traumatic head injury with nonfocal neurologic exam/concussion. Plan: 1. Neurologically, she looks to be doing very well. Imaging has been unremarkable. Workup is benign except for mild polyneuropathy on EMG. 2. She denied significant pain or paresthesias, I do not think any treatment right now is necessary for her polyneuropathy. I have encouraged her to follow up with her PCP to monitor and treat neuropathy as needed. 3. I really do not think any further workup for the neuropathy or for her recent concussions necessary. Fall precautions recommended. She can follow up with her PCP to manage from here and can return to see me as needed. I have discussed this at length with her today. Answered her questions and told her that if there is neurologic change, to call and I will see her again as needed. She is neurologically stable. Neuropathy would predispose to the potential for fall and caution should be taken to minimize this risk. She has crutches that she uses now for support. I suspect there is a strong functional overlay to this with somatoform disorder for which she should also discuss their PCP and consider Psychiatric referral. RTC pshemar ([id number]) in this encounter Plan of Treatment Not on fileas of this encounter Visit Diagnoses Diagnosis Idiopathic polyneuropathy - Primary Unspecified hereditary and idiopathic peripheral neuropathy Somatoform disorder Undifferentiated somatoform disorder KYUNG positive Other and unspecified nonspecific immunological findings
--- OUTSIDE RECORDS SUMMARY | 2017-09-09 10:04 | XMS REPORT | Continuity of Care Document ---
Author Author [employer] Organization [facility] Address Unknown Phone Unavailable Care Team Providers Care Audio Visual Secretary Name Role Phone [employer] Unavailable Unavailable Problems Medications Allergies, Adverse Reactions, Alerts Immunizations Results Vital Signs Encounters Location Location Details Encounter Type Encounter Number Reason For Visit Attending Provider ADM Date DC Date Status Source OUTPATIENT [id number] RADHA HANSON 03/03/2017 Active [facility] OUTPATIENT [id number] RADHA HANSON 03/22/2017 Active [facility] OUTPATIENT [id number] RADHA HANSON 04/09/2017 Active [facility] OUTPATIENT [id number] RADHA HANSON 04/10/20172016 Active [facility] OUTPATIENT [id number] 04/16/2017 Active [facility] OUTPATIENT [id number] 04/16/2017 Active [facility] OUTPATIENT [id number] RADHA HANSON 04/16/20172016 Active [facility] OUTPATIENT [id number] RADHA HANSON 05/18/2017 Active [facility] OUTPATIENT [id number] RADHA HANSON 07/16/2017 Active [facility] O RADHA HANSON Active [facility] Procedures Plan of Care Social History Assessment and Plan Family History Advance Directives Functional Status
--- OUTSIDE RECORDS SUMMARY | 2017-09-09 10:14 | XMS REPORT | CCD ---
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 Name Role Phone PP Unavailable CCM Unavailable Summary Purpose Interface Exchange Insurance Providers Payer name Policy type / Coverage type Covered democrat ID Effective Begin Date Effective End Date WPS Medicare Part B Medicare Part B [id number] 2013 Unknown [facility] Medicare Part B [id number] 2013 Unknown Family history Grandmother Diagnosis Age At Onset Stroke Unknown Grandfather Diagnosis Age At Onset Cancer Unknown Father Diagnosis Age At Onset Diabetes Unknown Alzheimer's Disease Unknown Mother Diagnosis Age At Onset Hypoglycemia Unknown Grandfather Diagnosis Age At Onset Parkinson's disease Unknown Social History Social History Element Codes Description Effective Dates Living arrangements Unknown Shared House Lives with her mom 07/13/2012 Marital status Unknown 01/29/[address]: 166495170 Never smoker 01/29/[address]: 819131 Currently drinks alcohol mixed drink before bed 01/29/2011 Has the patient ever used illegal drugs? Unknown Has never used illegal drugs 01/29/2011 Allergies, Adverse Reactions, Alerts Substance Reaction Codes Entered Date Inactivated Date Status * OTHER REACTION - SEE ANSWER BOX anaphylaxis Unknown 2016 No Inactive Date Active Past Medical History Illness Codes Condition Status Onset Date Resolved Date Cervicalgia ICD-9: 723.1 ICD-10: M54.2 Active 05/06/2016 Unknown Laceration without foreign body of scalp, initial encounter ICD-9: 873.0 ICD-10: S01.01XA Active 04/27/2017 Unknown Vitamin B12 deficiency anemia due to intrinsic factor deficiency ICD-9: 281.0 ICD-10: D51.0 Active 04/19/2016 Unknown Residual hemorrhoidal skin tags ICD-9: 455.9 ICD-10: K64.4 Active 04/06/2017 Unknown Pain in left foot ICD- 9: 729.5 ICD-10: M79.672 Active 05/26/2012 Unknown Pain in right foot ICD -9: 729.5 ICD-10: M79.671 Active 06/24/2015 Unknown Chronic pain syndrome ICD-9: 338.4 ICD-10: G89.4 Active 03/04/2016 Unknown Essential (primary) hypertension ICD-9: 401.1 ICD-10: I10 Active 06/25/2016 Unknown Pain in right leg ICD- 9: 729.5 ICD-10: M79.604 Active 01/19/2017 Unknown Spinal stenosis, cervical region ICD-9: 723.0 ICD-10: M48.02 Active 07/07/2016 Unknown Foot drop, left foot ICD-9: 736.79 ICD-10: M21.372 Active 10/12/2016 Unknown Foot drop, right foot ICD-9: 736.79 ICD-10: M21.371 Active 10/12/2016 Unknown Vitamin B12 deficiency anemia, unspecified ICD-9: 266.2 ICD-10: D51.9 Active 07/03/2016 Unknown Other abnormalities of gait and mobility ICD-9: 781.2 ICD-10: R26.89 Active 10/12/2016 Unknown Pain in right ankle and joints of right foot ICD-9: 719.47 ICD-10: M25.571 Active 06/24/2015 Unknown Superficial foreign body, right foot, initial encounter ICD-9: 917.6 ICD-10: S90.851A Active 08/18/2016 Unknown Candidiasis of vulva and vagina ICD-9: 112.1 ICD-10: B37.3 Active 08/07/2016 Unknown Pain in left ankle and joints of left foot ICD-9: 719.47 ICD-10: M25.572 Active 06/24/2015 Unknown Low back pain ICD-9: 724.2 ICD-10: M54.5 Active 07/07/2016 Unknown Mixed hyperlipidemia ICD-9: 272.2 ICD-10: E78.2 Active 06/25/2016 Unknown Generalized anxiety disorder ICD-9: 300.02 ICD-10: F41.1 Active 04/20/2016 Unknown Hypoxemia ICD-9: 799.02 ICD-10: R09.02 Active 04/19/2016 Unknown Pleurodynia ICD-9: 786.50 ICD-10: R07.81 Active 04/19/2016 Unknown Encounter for immunization ICD-9: V04.81 ICD-10: Z23 Active 03/16/2016 Unknown Radiculopathy, lumbar region ICD-9: 724.4 ICD-10: M54.16 Active 03/16/2016 Unknown Essential (primary) hypertension ICD-9: 401.9 ICD-10: I10 Active 02/12/2016 Unknown Mixed hyperlipidemia ICD-9: 272.4 ICD-10: E78.2 Active 02/12/2016 Unknown 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 malabsorption with proteinuria ICD-9: 281.1 ICD-10: D51.1 Active 02/12/2016 Unknown Vitamin D deficiency, unspecified ICD-9: 268.9 ICD-10: E55.9 Active 02/12/2016 Unknown Encounter for screening mammogram for malignant neoplasm of breast ICD-9: V76.12 ICD-10: Z12.31 Active 02/02/2016 Unknown Dysuria ICD-9: 788.1 ICD-10: R30.0 Active 12/09/2015 Unknown Encounter for immunization ICD-9: V03.89 ICD-10: Z23 Active 12/01/2015 Unknown Headache ICD-9: 784.0 ICD-10: R51 Active 08/14/2015 Unknown Unspecified osteoarthritis, unspecified site ICD-9: 715.90 ICD-10: M19.90 Active 06/24/2015 Unknown Anxiety disorder, unspecified ICD-9: 311 ICD-10: F41.9 Active 05/08/2015 Unknown Other myositis, multiple sites ICD-9: 729.1 ICD-10: M60.89 Active 03/25/2015 Unknown Abrasion of knee, left ICD-9: 916.0 Active 01/09/2015 Unknown MYALGIA AND MYOSITIS ICD-9: 729.1 Active 12/21/2014 Unknown OSTEOARTH NOS-UNSPEC ICD-9: 715.90 Active 12/21/2014 Unknown DEPRESSIVE DISORDER NEC ICD-9: 311 Active 10/05/2014 Unknown ESSENTIAL HYPERTENSION ICD-9: 401.9 Active 10/05/2014 Unknown GENERALIZED ANXIETY DISEASE ICD-9: 300.02 Active 10/05/2014 Unknown Ankle pain ICD-9: 719.47 Active 06/14/2014 Unknown CHRONIC PAIN SYNDROME ICD-9: 338.4 Active 06/14/2014 Unknown Knee pain, right ICD-9 : 719.46 Active 06/14/2014 Unknown B12 deficiency ICD-9: 266.2 Active 02/15/2014 Unknown Constipation ICD-9: 564.00 Active 01/19/2014 Unknown ALLERGIC RHINITIS ICD- 9: 477.9 Active 01/15/2014 Unknown Hemorrhoids ICD-9: 455.6 Active 01/15/2014 Unknown Ulcer of knee ICD-9: 707.19 Active 01/15/2014 Unknown ANEMIA ICD-9: 285.9 Active 10/20/2013 Unknown EDEMA ICD-9: 782.3 Active 10/20/2013 Unknown Open wound of knee ICD -9: 891.0 Active 10/20/2013 Unknown Hypertension Unknown Active 11/21/2012 Unknown Tuberculosis screening ICD-9: V74.1 Active 09/26/2012 Unknown FEVER NOS ICD-9: 780.60 Active 07/21/2012 Unknown PNEUMONIA (CAP) ICD-9 : 486 Active 07/21/2012 Unknown Plantar fasciitis ICD- 9: 728.71 Active 05/26/2012 Unknown Right foot pain ICD-9 : 729.5 Active 05/26/2012 Unknown Chest wall pain ICD-9 : 786.52 Active 02/15/2012 Unknown Asthma Unknown Active 12/21/2011 Unknown Costalchondritis ICD-9 : 733.6 Active 12/21/2011 Unknown UNSPECIFIED ASTHMA ICD -9: 493.90 Active 12/21/2011 Unknown Hyperlipidemia Unknown Active 10/02/2011 Unknown Hypopotassemia ICD-9: 276.8 Active 10/02/2011 Unknown Foul smelling urine ICD-9: 791.9 Active 08/03/2011 Unknown Vulvovaginitis ICD-9: 616.10 Active 08/03/2011 Unknown Weight gain ICD-9: 783.1 Active 06/29/2011 Unknown Wrist pain ICD-9: 719.43 Active 06/22/2011 Unknown Osteoarthritis Unknown Active 06/11/2011 Unknown sleep apnea Unknown Active 05/14/2011 Unknown 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 Active 03/11/2011 Unknown Overweight (BMI 25.0-29.9) ICD-9: 278.02 Active 03/11/2011 Unknown VACCIN FOR INFLUENZA ICD-9: V04.81 Active 02/23/2011 Unknown Iliotibial band syndrome ICD-9: 728.89 Active 02/12/2011 Unknown Anxiety Unknown Active 01/29/2011 Unknown Depression Unknown Active 01/29/2011 Unknown Fibromyalgia Unknown Active 01/29/2011 Unknown Hearing loss Unknown Active 01/29/2011 Unknown Insomnia Unknown Active 01/29/2011 Unknown Ulcerative colitis Unknown Active 01/29/2011 Unknown Cervical pain ICD-9: 723.1 Active 01/29/2011 Unknown Chronic ulcerative colitis ICD-9: 556.9 Active 01/29/2011 Unknown Dyslipidemia ICD-9: 272.4 Active 01/29/2011 Unknown ESOPHAGEAL REFLUX ICD- 9: 530.81 Active 01/29/2011 Unknown FALL FROM SLIPPING ICD -9: E885.9 Active 01/29/2011 Unknown Idiopathic autonomic neuropathy ICD-9: 337.00 Active 2010 Unknown INSOMNIA NOS ICD-9: 780.52 Active 01/29/2011 Unknown Problems Condition Codes Effective Dates Condition Status Cervicalgia ICD-9: 723.1 ICD-10: M54.2 05/06/2016 Active Laceration without foreign body of scalp, initial encounter ICD-9: 873.0 ICD-10: S01.01XA 04/27/2017 Active Vitamin B12 deficiency anemia due to intrinsic factor deficiency ICD-9: 281.0 ICD-10: D51.0 04/19/2016 Active Residual hemorrhoidal skin tags ICD-9: 455.9 ICD-10: K64.4 04/06/2017 Active Pain in left foot ICD- 9: 729.5 ICD-10: M79.672 05/26/2012 Active Pain in right foot ICD -9: 729.5 ICD-10: M79.671 06/24/2015 Active Chronic pain syndrome ICD-9: 338.4 ICD-10: G89.4 03/04/2016 Active Essential (primary) hypertension ICD-9: 401.1 ICD-10: I10 06/25/2016 Active Pain in right leg ICD- 9: 729.5 ICD-10: M79.604 01/19/2017 Active Spinal stenosis, cervical region ICD-9: 723.0 ICD-10: M48.02 07/07/2016 Active Foot drop, left foot ICD-9: 736.79 ICD-10: M21.372 10/12/2016 Active Foot drop, right foot ICD-9: 736.79 ICD-10: M21.371 10/12/2016 Active Vitamin B12 deficiency anemia, unspecified ICD-9: 266.2 ICD-10: D51.9 07/03/2016 Active Other abnormalities of gait and mobility ICD-9: 781.2 ICD-10: R26.89 10/12/2016 Active Pain in right ankle and joints of right foot ICD-9: 719.47 ICD-10: M25.571 06/24/2015 Active Superficial foreign body, right foot, initial encounter ICD-9: 917.6 ICD-10: S90.851A 08/18/2016 Active Candidiasis of vulva and vagina ICD-9: 112.1 ICD-10: B37.3 08/07/2016 Active Pain in left ankle and joints of left foot ICD-9: 719.47 ICD-10: M25.572 06/24/2015 Active Low back pain ICD-9: 724.2 ICD-10: M54.5 07/07/2016 Active Mixed hyperlipidemia ICD-9: 272.2 ICD-10: E78.2 06/25/2016 Active Generalized anxiety disorder ICD-9: 300.02 ICD-10: F41.1 04/20/2016 Active Hypoxemia ICD-9: 799.02 ICD-10: R09.02 04/19/2016 Active Pleurodynia ICD-9: 786.50 ICD-10: R07.81 04/19/2016 Active Encounter for immunization ICD-9: V04.81 ICD-10: Z23 03/16/2016 Active Radiculopathy, lumbar region ICD-9: 724.4 ICD-10: M54.16 03/16/2016 Active Essential (primary) hypertension ICD-9: 401.9 ICD-10: I10 02/12/2016 Active Mixed hyperlipidemia ICD-9: 272.4 ICD-10: E78.2 02/12/2016 Active 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 malabsorption with proteinuria ICD-9: 281.1 ICD-10: D51.1 02/12/2016 Active Vitamin D deficiency, unspecified ICD-9: 268.9 ICD-10: E55.9 02/12/2016 Active Encounter for screening mammogram for malignant neoplasm of breast ICD-9: V76.12 ICD-10: Z12.31 02/02/2016 Active Dysuria ICD-9: 788.1 ICD-10: R30.0 12/09/2015 Active Encounter for immunization ICD-9: V03.89 ICD-10: Z23 12/01/2015 Active Headache ICD-9: 784.0 ICD-10: R51 08/14/2015 Active Unspecified osteoarthritis, unspecified site ICD-9: 715.90 ICD-10: M19.90 06/24/2015 Active Anxiety disorder, unspecified ICD-9: 311 ICD-10: F41.9 05/08/2015 Active Other myositis, multiple sites ICD-9: 729.1 ICD-10: M60.89 03/25/2015 Active Abrasion of knee, left ICD-9: 916.0 01/09/2015 Active MYALGIA AND MYOSITIS ICD-9: 729.1 12/21/2014 Active OSTEOARTH NOS-UNSPEC ICD-9: 715.90 12/21/2014 Active DEPRESSIVE DISORDER NEC ICD-9: 311 10/05/2014 Active ESSENTIAL HYPERTENSION ICD-9: 401.9 10/05/2014 Active GENERALIZED ANXIETY DISEASE ICD-9: 300.02 10/05/2014 Active Ankle pain ICD-9: 719.47 06/14/2014 Active CHRONIC PAIN SYNDROME ICD-9: 338.4 06/14/2014 Active Knee pain, right ICD-9 : 719.46 06/14/2014 Active B12 deficiency ICD-9: 266.2 02/15/2014 Active Constipation ICD-9: 564.00 01/19/2014 Active ALLERGIC RHINITIS ICD- 9: 477.9 01/15/2014 Active Hemorrhoids ICD-9: 455.6 01/15/2014 Active Ulcer of knee ICD-9: 707.19 01/15/2014 Active ANEMIA ICD-9: 285.9 10/20/2013 Active EDEMA ICD-9: 782.3 10/20/2013 Active Open wound of knee ICD -9: 891.0 10/20/2013 Active Hypertension Unknown 11/21/2012 Active Tuberculosis screening ICD-9: V74.1 09/26/2012 Active FEVER NOS ICD-9: 780.60 07/21/2012 Active PNEUMONIA (CAP) ICD-9 : 486 07/21/2012 Active Plantar fasciitis ICD- 9: 728.71 05/26/2012 Active Right foot pain ICD-9 : 729.5 05/26/2012 Active Chest wall pain ICD-9 : 786.52 02/15/2012 Active Asthma Unknown 12/21/2011 Active Costalchondritis ICD-9 : 733.6 12/21/2011 Active UNSPECIFIED ASTHMA ICD -9: 493.90 12/21/2011 Active Hyperlipidemia Unknown 10/02/2011 Active Hypopotassemia ICD-9: 276.8 10/02/2011 Active Foul smelling urine ICD-9: 791.9 08/03/2011 Active Vulvovaginitis ICD-9: 616.10 08/03/2011 Active Weight gain ICD-9: 783.1 06/29/2011 Active Wrist pain ICD-9: 719.43 06/22/2011 Active Osteoarthritis Unknown 06/11/2011 Active sleep apnea Unknown 05/14/2011 Active 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 03/11/2011 Active Overweight (BMI 25.0-29.9) ICD-9: 278.02 03/11/2011 Active VACCIN FOR INFLUENZA ICD-9: V04.81 02/23/2011 Active Iliotibial band syndrome ICD-9: 728.89 02/12/2011 Active Anxiety Unknown 01/29/2011 Active Depression Unknown 01/29/2011 Active Fibromyalgia Unknown 01/29/2011 Active Hearing loss Unknown 01/29/2011 Active Insomnia Unknown 01/29/2011 Active Ulcerative colitis Unknown 01/29/2011 Active Cervical pain ICD-9: 723.1 01/29/2011 Active Chronic ulcerative colitis ICD-9: 556.9 01/29/2011 Active Dyslipidemia ICD-9: 272.4 01/29/2011 Active ESOPHAGEAL REFLUX ICD- 9: 530.81 01/29/2011 Active FALL FROM SLIPPING ICD -9: E885.9 01/29/2011 Active Idiopathic autonomic neuropathy ICD-9: 337.00 01/29/2011 Active INSOMNIA NOS ICD-9: 780.52 01/29/2011 Active Medications Medication Codes Instructions Start Date Stop Date Status Fill Instructions tramadol 50 mg tablet RxNorm: 753082 1-2 Tablet(s) PO TID as needed 06/21/2017 09/18/2017 Active hydrocodone 10 mg-acetaminophen 325 mg tablet RxNorm: 349414 1-2 Tablet(s) PO Q6 as needed for pain 06/17/2017 07/09/2017 Active cyclobenzaprine 10 mg tablet RxNorm: 935031 TAKE 1 TABLET BY MOUTH THREE TIMES DAILY NEEDED FOR MUSCLE SPASMS 06/08/2017 08/31/2018 Active Claritin-D 12 Hour 5 mg-120 mg tablet,extended release RxNorm: 9473519 Tablet(s) as needed TAKE 1 TABLET BY MOUTH TWICE DAILY NEEDED 201709/05/2017 Active Lipitor 20 mg tablet RxNorm: 124291 1 TABLET(S) PO DAILY 201706/02/2018 Active TAKE ONE TABLET BY MOUTH EVERY NIGHT AT BEDTIME trazodone 100 mg tablet RxNorm: 350503 TABLET(S) TAKE 2 TABLETS BY MOUTH EVERY NIGHT AT BEDTIME 05/17/2017 08/14/2017 Active cyclobenzaprine 5 mg tablet RxNorm: 668044 Tablet(s) PO TAKE 1 TABLET BY MOUTH THREE TIMES DAILY NEEDED FOR MUSCLE SPASMS (New dose has not been sent to pharmacy) 05/11/2017 No Stop Date Active Valium 5 mg tablet RxNorm: 833791 1 Tablet(s) PO QID as needed (New dose has not been sent to pharmacy) 05/11/2017 No Stop Date Active diazepam 10 mg tablet RxNorm: 702380 TAKE 1 TABLET BY MOUTH FOUR TIMES DAILY NEEDED 04/28/2017 05/27/2017 Inactive hydrocodone 10 mg-acetaminophen 325 mg tablet RxNorm: 909937 1-2 Tablet(s) PO Q6 as needed for pain 04/27/2017 05/19/2017 Inactive cyanocobalamin (vit B-12) 1,000 mcg/mL injection solution RxNorm: 867718 1 Milliliter(s) Inj 04/27/2017 04/27/2017 Inactive hydrocodone 10 mg-acetaminophen 325 mg tablet RxNorm: 810687 1-2 Tablet(s) PO Q6 as needed for pain 03/17/2017 04/08/2017 Inactive Seroquel 100 mg tablet RxNorm: 283727 1 TABLET(S) PO BID 201603/10/2018 Active TAKE 1 TABLET BY MOUTH TWICE DAILY Valium 10 mg tablet RxNorm: 660262 1 Tablet(s) QID as needed 03/05/2017 05/03/2017 Inactive Claritin-D 12 Hour 5 mg-120 mg tablet,extended release RxNorm: 2488734 Tablet(s) as needed TAKE 1 TABLET BY MOUTH TWICE DAILY NEEDED 201604/25/2017 Inactive pantoprazole 40 mg tablet,delayed release RxNorm: 672991 TAKE 1 TABLET BY MOUTH EVERY DAY 02/26/2017 08/24/2017 Active tramadol 50 mg tablet RxNorm: 113497 1-2 Tablet(s) PO TID as needed 02/17/2017 05/17/2017 Inactive hydrocodone 10 mg-acetaminophen 325 mg tablet RxNorm: 402446 1-2 Tablet(s) PO Q6 as needed for pain 02/17/2017 03/11/2017 Inactive Valium 10 mg tablet RxNorm: 182825 1 Tablet(s) QID as needed 02/02/2017 03/03/2017 Inactive (Response to an electronic controlled substance refill request - RxReferenceNumber: [id number]|1|0|1) Advair Diskus 250 mcg-50 mcg/dose powder for inhalation RxNorm: 3871429 1 Puff(s) INH BID 01/21/2017 05/20/2017 Inactive nystatin 100,000 unit/gram topical powder RxNorm: 343481 1 APPLICATION TOP QID UNTIL HEALED 01/21/2017 No Stop Date Active hydrocodone 10 mg-acetaminophen 325 mg tablet RxNorm: 872632 1-2 Tablet(s) PO Q6 as needed for pain 01/21/2017 02/11/2017 Inactive metoprolol tartrate 25 mg tablet RxNorm: 651783 TABLET(S) 1/2 TABLET(S) PO BID TAKE 1/2 TABLET BY MOUTH TWICE DAILY 01/18/2017 No Stop Date Active Effexor XR 150 mg capsule,extended release RxNorm: 227559 1 CAPSULE(S) PO BID 01/11/2017 12/06/2017 Active TAKE 1 CAPSULE BY MOUTH TWICE DAILY Effexor XR 150 mg capsule,extended release RxNorm: 747058 1 Capsule(s) PO BID 1 CAPSULE(S) PO BID 01/08/2017 07/06/2017 Active TAKE 1 CAPSULE BY MOUTH TWICE DAILY nystatin 100,000 unit/gram topical powder RxNorm: 611913 1 APPLICATION TOP QID UNTIL HEALED 12/17/2016 01/20/2017 Inactive hydrocodone 10 mg-acetaminophen 325 mg tablet RxNorm: 533092 1-2 Tablet(s) PO Q6 as needed for pain 12/17/2016 01/07/2017 Inactive Claritin-D 12 Hour 5 mg-120 mg tablet,extended release RxNorm: 0546330 Tablet(s) as needed TAKE 1 TABLET BY MOUTH TWICE DAILY NEEDED 201602/12/2017 Inactive Lipitor 20 mg tablet RxNorm: 992614 1 TABLET(S) PO DAILY 201606/07/2017 Inactive TAKE ONE TABLET BY MOUTH EVERY NIGHT AT BEDTIME Advair Diskus 250 mcg-50 mcg/dose powder for inhalation RxNorm: 1944375 1 Puff(s) INH BID 11/26/2016 01/20/2017 Inactive Valium 10 mg tablet RxNorm: 685051 1 Tablet(s) QID as needed 11/24/2016 01/22/2017 Inactive (Response to an electronic controlled substance refill request - RxReferenceNumber: [id number]|1|0|1) cyanocobalamin (vit B-12) 1,000 mcg/mL injection solution RxNorm: 816612 1 Milliliter(s) Inj 11/17/2016 11/17/2016 Inactive tramadol 50 mg tablet RxNorm: 600916 1-2 Tablet(s) PO TID as needed 11/06/2016 02/02/2017 Inactive hydrocodone 10 mg-acetaminophen 325 mg tablet RxNorm: 555811 1-2 Tablet(s) PO Q6 as needed for pain 11/06/2016 11/27/2016 Inactive nystatin 100,000 unit/gram topical powder RxNorm: 423620 1 Application TOP QID until healed 10/27/2016 12/16/2016 Inactive cyanocobalamin (vit B-12) 1,000 mcg/mL injection solution RxNorm: 204565 1 Milliliter(s) Inj 10/12/2016 10/12/2016 Inactive trazodone 100 mg tablet RxNorm: 462841 Tablet(s) TAKE 2 TABLETS BY MOUTH EVERY NIGHT AT BEDTIME 09/24/2016 03/22/2017 Inactive Valium 10 mg tablet RxNorm: 903876 1 Tablet(s) QID as needed 09/24/2016 11/22/2016 Inactive (Response to an electronic controlled substance refill request - RxReferenceNumber: [id number]|1|0|1) Savella 100 mg tablet RxNorm: 358499 TABLET(S) PO TAKE 1 TABLET BY MOUTH DAILY 09/18/2016 No Stop Date Active pantoprazole 40 mg tablet,delayed release RxNorm: 017243 TAKE 1 TABLET BY MOUTH EVERY DAY 09/18/2016 02/25/2017 Inactive cyanocobalamin (vit B-12) 1,000 mcg/mL injection solution RxNorm: 691758 1 Milliliter(s) Inj 09/11/2016 09/11/2016 Inactive hydrocodone 10 mg-acetaminophen 325 mg tablet RxNorm: 940034 1-2 Tablet(s) PO Q6 as needed for pain 08/24/2016 11/05/2016 Inactive (Response to an electronic controlled substance refill request - RxReferenceNumber: [id number]|1|0|1) Claritin-D 12 Hour 5 mg-120 mg tablet,extended release RxNorm: 0650710 Tablet(s) TAKE 1 TABLET BY MOUTH TWICE DAILY NEEDED 08/13/2016 10/10/2016 Inactive tramadol 50 mg tablet RxNorm: 443067 1-2 Tablet(s) PO TID PRN as needed 08/11/2016 11/05/2016 Inactive metoprolol tartrate 25 mg tablet RxNorm: 125334 TABLET(S) 1/2 TABLET(S) PO BID TAKE 1/2 TABLET BY MOUTH TWICE DAILY 08/10/2016 01/17/2017 Inactive pantoprazole 40 mg tablet,delayed release RxNorm: 214507 TAKE 1 TABLET BY MOUTH EVERY DAY 08/10/2016 11/05/2016 Inactive Savella 100 mg tablet RxNorm: 381395 TABLET(S) PO TAKE 1 TABLET BY MOUTH DAILY 08/10/2016 11/05/2016 Inactive Ventolin HFA 90 mcg/actuation aerosol inhaler RxNorm: 990153 1 OR 2 PUFF(S) INH Q6 PRN NEEDED 08/07/2016 02/02/2017 Inactive Diflucan 150 mg tablet RxNorm: 965466 1 Tablet(s) PO daily 08/201608/13/2016 Inactive nystatin 100,000 unit/mL oral suspension RxNorm: 890846 5 Milliliter(s) PO QID 08/07/2016 08/16/2016 Inactive hydrocodone 10 mg-acetaminophen 325 mg tablet RxNorm: 160732 1-2 Tablet(s) PO Q6 as needed for pain 08/04/2016 08/23/2016 Inactive (Response to an electronic controlled substance refill request - RxReferenceNumber: [id number]|1|0|1) Valium 10 mg tablet RxNorm: 518190 1 Tablet(s) QID as needed 07/20/2016 09/17/2016 Inactive (Response to an electronic controlled substance refill request - RxReferenceNumber: [id number]|1|0|1) tramadol 50 mg tablet RxNorm: 369094 1-2 Tablet(s) PO TID PRN as needed 07/15/2016 11/05/2016 Inactive ok to give 1 month jtkhvy=971 tablets cyanocobalamin (vit B-12) 1,000 mcg/mL injection solution RxNorm: 560854 Milliliter(s) Inj 07/03/2016 07/03/2016 Inactive Seroquel 100 mg tablet RxNorm: 147564 1 TABLET(S) PO BID 201603/15/2017 Inactive TAKE 1 TABLET BY MOUTH TWICE DAILY hydrocodone 10 mg-acetaminophen 325 mg tablet RxNorm: 170548 1-2 Tablet(s) PO Q6 as needed for pain 06/26/2016 08/03/2016 Inactive (Response to an electronic controlled substance refill request - RxReferenceNumber: [id number]|1|0|1) Valium 10 mg tablet RxNorm: 174059 1 Tablet(s) QID as needed 05/11/2016 07/09/2016 Inactive (Response to an electronic controlled substance refill request - RxReferenceNumber: [id number]|1|0|1) tramadol 50 mg tablet RxNorm: 710236 1-2 Tablet(s) PO TID PRN as needed 05/11/2016 07/08/2016 Inactive ok to give 1 month fjhqgn=957 tablets cyclobenzaprine 10 mg tablet RxNorm: 056005 TAKE 1 TABLET BY MOUTH THREE TIMES DAILY NEEDED FOR MUSCLE SPASMS 05/11/2016 05/10/2017 Inactive hydrocodone 10 mg-acetaminophen 325 mg tablet RxNorm: 856566 1-2 Tablet(s) PO Q6 as needed for pain 05/06/2016 06/25/2016 Inactive (Response to an electronic controlled substance refill request - RxReferenceNumber: [id number]|1|0|1) cyanocobalamin (vit B-12) 1,000 mcg/mL injection solution RxNorm: 979895 1 Milliliter(s) Inj 04/20/2016 04/20/2016 Inactive hydrocodone 10 mg-acetaminophen 325 mg tablet RxNorm: 872508 1-2 Tablet(s) PO Q6 as needed for pain 04/03/2016 05/05/2016 Inactive (Response to an electronic controlled substance refill request - RxReferenceNumber: [id number]|1|0|1) pantoprazole 40 mg tablet,delayed release RxNorm: 587543 TAKE 1 TABLET BY MOUTH EVERY DAY 04/02/2016 08/09/2016 Inactive Claritin-D 12 Hour 5 mg-120 mg tablet,extended release RxNorm: 3302405 Tablet(s) TAKE 1 TABLET BY MOUTH TWICE DAILY NEEDED 04/02/2016 11/05/2016 Inactive hydrocodone 10 mg-acetaminophen 325 mg tablet RxNorm: 388540 1-2 Tablet(s) PO Q6 as needed for pain 03/12/2016 04/02/2016 Inactive (Response to an electronic controlled substance refill request - RxReferenceNumber: [id number]|1|0|1) Effexor XR 150 mg capsule,extended release RxNorm: 907599 1 CAPSULE(S) PO BID 03/05/2016 01/07/2017 Inactive TAKE 1 CAPSULE BY MOUTH TWICE DAILY Ventolin HFA 90 mcg/actuation aerosol inhaler RxNorm: 718967 1 OR 2 PUFF(S) INH Q6 PRN NEEDED 02/19/2016 08/06/2016 Inactive cyanocobalamin (vit B-12) 1,000 mcg/mL injection solution RxNorm: 236530 Milliliter(s) Inj 02/13/2016 02/13/2016 Inactive hydrocodone 10 mg-acetaminophen 325 mg tablet RxNorm: 182617 1-2 Tablet(s) PO Q6 as needed for pain 02/05/2016 03/11/2016 Inactive (Response to an electronic controlled substance refill request - RxReferenceNumber: [id number]|1|0|1) Valium 10 mg tablet RxNorm: 078585 1 Tablet(s) QID as needed 02/05/2016 05/04/2016 Inactive (Response to an electronic controlled substance refill request - RxReferenceNumber: [id number]|1|0|1) tramadol 50 mg tablet RxNorm: 632560 1-2 Tablet(s) PO TID PRN as needed 02/05/2016 11/05/2016 Inactive ok to give 1 month dlehfq=080 tablets hydrocodone 10 mg-acetaminophen 325 mg tablet RxNorm: 868194 1-2 Tablet(s) PO Q6 as needed for pain 01/08/2016 02/04/2016 Inactive (Response to an electronic controlled substance refill request - RxReferenceNumber: [id number]|1|0|1) metoprolol tartrate 25 mg tablet RxNorm: 512860 Tablet(s) 1/2 TABLET(S) PO BID TAKE 1/2 TABLET BY MOUTH TWICE DAILY 01/08/2016 08/09/2016 Inactive Symbicort 160 mcg-4.5 mcg/actuation HFA aerosol inhaler RxNorm: 2106263 2 INH BID 01/03/2016 11/25/2016 Inactive Symbicort 160 mcg-4.5 mcg/actuation HFA aerosol inhaler RxNorm: 8182020 1 INH daily 01/03/2016 01/02/2016 Inactive Lipitor 20 mg tablet RxNorm: 970964 1 TABLET(S) PO DAILY 201506/26/2016 Inactive TAKE ONE TABLET BY MOUTH EVERY NIGHT AT BEDTIME trazodone 100 mg tablet RxNorm: 739460 TAKE 2 TABLETS BY MOUTH EVERY NIGHT AT BEDTIME 12/30/2015 09/23/2016 Inactive Savella 100 mg tablet RxNorm: 832725 TABLET(S) PO TAKE 1 TABLET BY MOUTH DAILY 12/30/2015 08/09/2016 Inactive hydrocodone 10 mg-acetaminophen 325 mg tablet RxNorm: 944097 1-2 Tablet(s) PO Q6 as needed for pain 12/12/2015 01/07/2016 Inactive (Response to an electronic controlled substance refill request - RxReferenceNumber: [id number]|1|0|1) cyanocobalamin (vit B-12) 1,000 mcg/mL injection solution RxNorm: 301019 1 Milliliter(s) Inj 12/02/2015 12/02/2015 Inactive hydrocodone 10 mg-acetaminophen 325 mg tablet RxNorm: 558470 1-2 Tablet(s) PO Q6 as needed for pain 12/02/2015 12/11/2015 Inactive (Response to an electronic controlled substance refill request - RxReferenceNumber: [id number]|1|0|1) Claritin-D 12 Hour 5 mg-120 mg tablet,extended release RxNorm: 4491555 Tablet(s) TAKE 1 TABLET BY MOUTH TWICE DAILY 11/11/2015 11/10/2015 Inactive Claritin-D 12 Hour 5 mg-120 mg tablet,extended release RxNorm: 2628763 Tablet(s) TAKE 1 TABLET BY MOUTH TWICE DAILY NEEDED 11/11/2015 01/06/2016 Inactive tramadol 50 mg tablet RxNorm: 746910 1-2 Tablet(s) PO TID PRN as needed 11/05/2015 11/05/2016 Inactive ok to give 1 month wjbhqo=070 tablets Valium 10 mg tablet RxNorm: 599738 1 Tablet(s) QID as needed 11/05/2015 02/02/2016 Inactive (Response to an electronic controlled substance refill request - RxReferenceNumber: [id number]|1|0|1) cyanocobalamin (vit B-12) 1,000 mcg/mL injection solution RxNorm: 958536 1 Milliliter(s) Inj 10/29/2015 10/29/2015 Inactive hydrocodone 10 mg-acetaminophen 325 mg tablet RxNorm: 314692 1-2 Tablet(s) PO Q6 as needed for pain 10/28/2015 12/01/2015 Inactive (Response to an electronic controlled substance refill request - RxReferenceNumber: [id number]|1|0|1) pantoprazole 40 mg tablet,delayed release RxNorm: 156388 TAKE 1 TABLET BY MOUTH EVERY DAY 10/08/2015 04/01/2016 Inactive Seroquel 100 mg tablet RxNorm: 381619 1 TABLET(S) PO BID 201506/29/2016 Inactive TAKE 1 TABLET BY MOUTH TWICE DAILY trazodone 100 mg tablet RxNorm: 986949 TAKE 2 TABLETS BY MOUTH EVERY NIGHT AT BEDTIME 10/08/2015 10/01/2016 Inactive Lipitor 20 mg tablet RxNorm: 937275 1 TABLET(S) PO DAILY 201504/04/2016 Inactive TAKE ONE TABLET BY MOUTH EVERY NIGHT AT BEDTIME hydrocodone 10 mg-acetaminophen 325 mg tablet RxNorm: 663076 1-2 Tablet(s) PO Q6 as needed for pain 09/19/2015 10/18/2015 Inactive (Response to an electronic controlled substance refill request - RxReferenceNumber: [id number]|1|0|1) Valium 10 mg tablet RxNorm: 031967 1 Tablet(s) QID as needed 09/05/2015 11/03/2015 Inactive (Response to an electronic controlled substance refill request - RxReferenceNumber: [id number]|1|0|1) Savella 100 mg tablet RxNorm: 732207 Tablet(s) PO TAKE 1 TABLET BY MOUTH DAILY 07/19/2015 11/05/2016 Inactive Zithromax Z-Lauro 250 mg tablet RxNorm: 915822 1 Tablet(s) PO UD 07/12/2015 11/04/2015 Inactive z lauro hydrocodone 10 mg-acetaminophen 325 mg tablet RxNorm: 998314 1-2 Tablet(s) PO Q6 as needed for pain 07/10/2015 08/08/2015 Inactive (Response to an electronic controlled substance refill request - RxReferenceNumber: [id number]|1|0|1) tramadol 50 mg tablet RxNorm: 334464 1-2 Tablet(s) PO TID PRN as needed 07/04/2015 11/05/2016 Inactive ok to give 1 month xflgrp=448 tablets hydrocodone 10 mg-acetaminophen 325 mg tablet RxNorm: 060015 1-2 Tablet(s) PO Q6 as needed for pain 06/10/2015 07/09/2015 Inactive (Response to an electronic controlled substance refill request - RxReferenceNumber: [id number]|1|0|1) cyanocobalamin (vit B-12) 1,000 mcg/mL injection solution RxNorm: 710670 Milliliter(s) Inj 06/10/2015 06/10/2015 Inactive pantoprazole 40 mg tablet,delayed release RxNorm: 324435 TABLET(S) PO TAKE 1 TABLET BY MOUTH EVERY DAY 06/10/201511/05 Inactive pantoprazole 40 mg tablet,delayed release RxNorm: 093710 Tablet(s) PO TAKE 1 TABLET BY MOUTH EVERY DAY 06/06/201511/05 Inactive tramadol 50 mg tablet RxNorm: 820125 1-2 Tablet(s) PO TID PRN as needed 05/29/2015 06/27/2015 Inactive ok to give 1 month qljgeb=273 tablets tramadol 50 mg tablet RxNorm: 875172 1-2 Tablet(s) PO Q6 as needed 05/29/2015 06/09/2015 Inactive Valium 10 mg tablet RxNorm: 636946 1 Tablet(s) QID as needed 05/08/2015 07/06/2015 Inactive (Response to an electronic controlled substance refill request - RxReferenceNumber: [id number]|1|0|1) cyclobenzaprine 10 mg tablet RxNorm: 472542 TAKE 1 TABLET BY MOUTH THREE TIMES DAILY NEEDED FOR MUSCLE SPASMS 05/08/2015 05/10/2016 Inactive Effexor XR 150 mg capsule,extended release RxNorm: 631206 1 Capsule(s) PO BID 1 CAPSULE(S) PO BID 05/08/2015 11/05/2016 Inactive TAKE 1 CAPSULE BY MOUTH TWICE DAILY hydrocodone 10 mg-acetaminophen 325 mg tablet RxNorm: 890219 1-2 Tablet(s) PO Q6 as needed for pain 05/08/2015 06/06/2015 Inactive (Response to an electronic controlled substance refill request - RxReferenceNumber: [id number]|1|0|1) metoprolol tartrate 25 mg tablet RxNorm: 087718 1/2 TABLET(S) PO BID TAKE 1/2 TABLET BY MOUTH TWICE DAILY 05/06/201507/2015 Inactive Claritin-D 12 Hour 5 mg-120 mg tablet,extended release RxNorm: 2730771 TAKE 1 TABLET BY MOUTH TWICE DAILY 04/16/201506/2016 Inactive hydrocodone 10 mg-acetaminophen 325 mg tablet RxNorm: 391406 1-2 Tablet(s) PO Q6 as needed for pain 04/15/2015 05/07/2015 Inactive (Response to an electronic controlled substance refill request - RxReferenceNumber: [id number]|1|0|1) pantoprazole 40 mg tablet,delayed release RxNorm: 223927 TABLET(S) PO TAKE 1 TABLET BY MOUTH EVERY DAY 04/08/201506/06 Inactive hydrocodone 10 mg-acetaminophen 325 mg tablet RxNorm: 138219 1 Tablet(s) PO Q4 PRN TAKE 1-2 TABLETS BY MOUTH EVERY 6 HOURS NEEDED FOR PAIN 03/14/2015 04/12/2015 Inactive (Response to an electronic controlled substance refill request - RxReferenceNumber: [id number]|1|0|1) diazepam 10 mg tablet RxNorm: 088200 1 Tablet(s) TID TAKE 1 TABLET BY MOUTH THREE TIMES DAILY NEEDED 02/08/20152016 Inactive (Response to an electronic controlled substance refill request - RxReferenceNumber: [id number]|1|0|1) Effexor XR 150 mg capsule,extended release RxNorm: 564892 1 CAPSULE(S) PO BID 02/07/2015 05/07/2015 Inactive TAKE 1 CAPSULE BY MOUTH TWICE DAILY cyclobenzaprine 10 mg tablet RxNorm: 189617 TAKE 1 TABLET BY MOUTH THREE TIMES DAILY NEEDED FOR MUSCLE SPASMS 02/07/2015 05/07/2015 Inactive pantoprazole 40 mg tablet,delayed release RxNorm: 186339 TABLET(S) PO TAKE 1 TABLET BY MOUTH EVERY DAY 02/07/201504/07 Inactive hydrocodone 10 mg-acetaminophen 325 mg tablet RxNorm: 080918 1 Tablet(s) PO Q4 PRN TAKE 1-2 TABLETS BY MOUTH EVERY 6 HOURS NEEDED FOR PAIN 01/25/2015 02/23/2015 Inactive (Response to an electronic controlled substance refill request - RxReferenceNumber: [id number]|1|0|1) Bactroban Nasal 2 % ointment RxNorm: 706376 1 Application NASAL BID 01/10/2015 01/10/2015 Inactive mupirocin 2 % topical ointment RxNorm: 524741 1 Application TOP TID 1 APPLICATION TOP PRN 01/10/2015 01/19/2015 Inactive disregard order for nasal ointment , use on left knee trazodone 100 mg tablet RxNorm: 312008 TAKE 2 TABLETS BY MOUTH EVERY NIGHT AT BEDTIME 01/08/2015 10/07/2015 Inactive Seroquel 100 mg tablet RxNorm: 829701 1 TABLET(S) PO BID 201410/04/2015 Inactive TAKE 1 TABLET BY MOUTH TWICE DAILY cyclobenzaprine 10 mg tablet RxNorm: 083779 TAKE 1 TABLET BY MOUTH THREE TIMES DAILY NEEDED FOR MUSCLE SPASMS 01/08/2015 02/06/2015 Inactive hydrocodone 10 mg-acetaminophen 325 mg tablet RxNorm: 470739 1 Tablet(s) PO Q4 PRN TAKE 1-2 TABLETS BY MOUTH EVERY 6 HOURS NEEDED FOR PAIN 12/21/2014 01/19/2015 Inactive (Response to an electronic controlled substance refill request - RxReferenceNumber: [id number]|1|0|1) pantoprazole 40 mg tablet,delayed release RxNorm: 540121 TABLET(S) PO TAKE 1 TABLET BY MOUTH EVERY DAY 12/13/201402/06 Inactive Lipitor 20 mg tablet RxNorm: 074854 1 Tablet(s) PO daily 201409/08/2015 Inactive TAKE ONE TABLET BY MOUTH EVERY NIGHT AT BEDTIME Valium 10 mg tablet RxNorm: 350971 1 Tablet(s) QID as needed 12/12/2014 02/09/2015 Inactive (Response to an electronic controlled substance refill request - RxReferenceNumber: [id number]|1|0|1) hydrocodone 10 mg-acetaminophen 325 mg tablet RxNorm: 411692 Tablet(s) TAKE 1-2 TABLETS BY MOUTH EVERY 6 HOURS NEEDED FOR PAIN 12/12/2014 12/20/2014 Inactive ( Response to an electronic controlled substance refill request - RxReferenceNumber: [id number]|1|0|1) Lipitor 20 mg tablet RxNorm: 245558 1 Tablet(s) PO daily 201412/12/2014 Inactive TAKE ONE TABLET BY MOUTH EVERY NIGHT AT BEDTIME pantoprazole 40 mg tablet,delayed release RxNorm: 819335 TABLET(S) PO TAKE 1 TABLET BY MOUTH EVERY DAY 12/06/201411/05 Inactive Savella 100 mg tablet RxNorm: 442990 Tablet(s) PO TAKE 1 TABLET BY MOUTH DAILY 12/06/2014 07/18/2015 Inactive Lipitor 20 mg tablet RxNorm: 668360 1 Tablet(s) PO daily 201412/10/2014 Inactive TAKE ONE TABLET BY MOUTH EVERY NIGHT AT BEDTIME Valium 10 mg tablet RxNorm: 727096 TAKE 1 TABLET BY MOUTH FOUR TIMES DAILY NEEDED FOR ANXIETY 12/06/2014 12/11/2014 Inactive Valium 10 mg tablet RxNorm: 048647 1 Tablet(s) QID as needed 11/13/2014 12/11/2014 Inactive (Response to an electronic controlled substance refill request - RxReferenceNumber: [id number]|1|0|1) hydrocodone 10 mg-acetaminophen 325 mg tablet RxNorm: 045459 Tablet(s) TAKE 1-2 TABLETS BY MOUTH EVERY 6 HOURS NEEDED FOR PAIN 11/13/2014 12/11/2014 Inactive ( Response to an electronic controlled substance refill request - RxReferenceNumber: [id number]|1|0|1) hydrocodone 10 mg-acetaminophen 325 mg tablet RxNorm: 425648 Tablet(s) TAKE 1-2 TABLETS BY MOUTH EVERY 6 HOURS NEEDED FOR PAIN 11/08/2014 11/12/2014 Inactive ( Response to an electronic controlled substance refill request - RxReferenceNumber: [id number]|1|0|1) Valium 10 mg tablet RxNorm: 541591 1 Tablet(s) QID as needed 11/08/2014 11/12/2014 Inactive (Response to an electronic controlled substance refill request - RxReferenceNumber: [id number]|1|0|1) metoprolol tartrate 25 mg tablet RxNorm: 476503 1/2 TABLET(S) PO BID TAKE 1/2 TABLET BY MOUTH TWICE DAILY 11/08/2014 Inactive Valium 10 mg tablet RxNorm: 265517 TAKE 1 TABLET BY MOUTH FOUR TIMES DAILY NEEDED FOR ANXIETY 11/06/2014 12/09/2014 Inactive Vitamin D2 50,000 unit capsule RxNorm: 023954 1 Capsule(s) PO QW 10/24/2014 10/23/2014 Inactive Vitamin D2 50,000 unit capsule RxNorm: 736220 1 Capsule(s) PO QW x 8 weeks 10/24/2014 12/22/2014 Inactive Entyvio 300 mg intravenous solution RxNorm: 0621951 IV 2014 No Stop Date Active hydrocodone 10 mg-acetaminophen 325 mg tablet RxNorm: 119155 Tablet(s) TAKE 1-2 TABLETS BY MOUTH EVERY 6 HOURS NEEDED FOR PAIN 10/05/2014 11/03/2014 Inactive ( Response to an electronic controlled substance refill request - RxReferenceNumber: [id number]|1|0|1) Valium 10 mg tablet RxNorm: 701770 TAKE 1 TABLET BY MOUTH EVERY 8 HOURS NEEDED 10/05/2014 11/03/2014 Inactive (Response to an electronic controlled substance refill request - RxReferenceNumber: [id number]|1|0|1) Valium 10 mg tablet RxNorm: 197465 1 Tablet(s) PO QID as needed TAKE 1 TABLET BY MOUTH 10/05/2014 11/05/2016 Inactive (Response to an electronic controlled substance refill request - RxReferenceNumber: [id number]|1|0|1) Valium 10 mg tablet RxNorm: 389773 TAKE 1 TABLET BY MOUTH THREE TIMES DAILY NEEDED 09/04/2014 10/03/2014 Inactive (Response to an electronic controlled substance refill request - RxReferenceNumber: [id number]|1|0|1) Valium 10 mg tablet RxNorm: 003019 1 Tablet(s) PO Q8 PRN as needed 09/04/2014 11/09/2014 Inactive hydrocodone 10 mg-acetaminophen 325 mg tablet RxNorm: 237170 Tablet(s) TAKE 1-2 TABLETS BY MOUTH EVERY 6 HOURS NEEDED FOR PAIN 08/27/2014 09/25/2014 Inactive ( Response to an electronic controlled substance refill request - RxReferenceNumber: [id number]|1|0|1) Claritin-D 12 Hour 5 mg-120 mg tablet,extended release RxNorm: 8213411 1 Tablet(s ) PO BID 08/27/2014 04/16/2015 Inactive Ventolin HFA 90 mcg/actuation aerosol inhaler RxNorm: 453066 1 or 2 Puff(s) INH Q6 PRN as needed 08/09/2014 03/06/2015 Inactive pantoprazole 40 mg tablet,delayed release RxNorm: 409722 Tablet(s) PO TAKE 1 TABLET BY MOUTH EVERY DAY 08/09/201408/08 Inactive pantoprazole 40 mg tablet,delayed release RxNorm: 458576 TAKE 1 TABLET BY MOUTH EVERY DAY 08/09/2014 11/05/2016 Inactive diazepam 10 mg tablet RxNorm: 619539 TAKE 1 TABLET BY MOUTH THREE TIMES DAILY NEEDED 07/02/2014 07/31/2014 Inactive (Response to an electronic controlled substance refill request - RxReferenceNumber: [id number]|1|0|1) Valium 10 mg tablet RxNorm: 463654 1 Tablet(s) PO Q8 PRN as needed 07/02/2014 07/01/2014 Inactive hydrocodone 10 mg-acetaminophen 325 mg tablet RxNorm: 666465 Tablet(s) TAKE 1-2 TABLETS BY MOUTH EVERY 6 HOURS NEEDED FOR PAIN 06/14/2014 07/13/2014 Inactive ( Response to an electronic controlled substance refill request - RxReferenceNumber: [id number]|1|0|1) diazepam 10 mg tablet RxNorm: 392032 TAKE 1 TABLET BY MOUTH THREE TIMES DAILY NEEDED 05/29/2014 06/27/2014 Inactive (Response to an electronic controlled substance refill request - RxReferenceNumber: [id number]|1|0|1) diazepam 10 mg tablet RxNorm: 158525 Tablet(s) PO TAKE 1 TABLET BY MOUTH THREE TIMES DAILY NEEDED 05/29/20142013 Inactive (Appended: Controlled substance eRx refill - RxReferenceNumber: [id number]|1|0|1) hydrocodone 10 mg-acetaminophen 325 mg tablet RxNorm: 731965 Tablet(s) TAKE 1-2 TABLETS BY MOUTH EVERY 6 HOURS NEEDED FOR PAIN 05/17/2014 06/13/2014 Inactive ( Response to an electronic controlled substance refill request - RxReferenceNumber: [id number]|1|0|1) diazepam 10 mg tablet RxNorm: 979017 Tablet(s) PO TAKE 1 TABLET BY MOUTH THREE TIMES DAILY NEEDED 04/27/20142013 Inactive (Appended: Controlled substance eRx refill - RxReferenceNumber: [id number]|1|0|1) Anucort-HC 25 mg suppository RxNorm: 6195061 1 SUPPOSITORY RTL QDAY PRN NEEDED 04/03/2014 06/01/2014 Inactive metoprolol tartrate 25 mg tablet RxNorm: 519572 1/2 TABLET(S) PO BID TAKE 1/2 TABLET BY MOUTH TWICE DAILY 04/03/201408/2014 Inactive Anucort-HC 25 mg suppository RxNorm: 9528451 1 SUPPOSITORY RTL QDAY PRN NEEDED 04/03/2014 06/01/2014 Inactive Seroquel 100 mg tablet RxNorm: 368992 1 TABLET(S) PO BID 201312/28/2014 Inactive TAKE 1 TABLET BY MOUTH TWICE DAILY Anucort-HC 25 mg suppository RxNorm: 8169246 1 SUPPOSITORY RTL QDAY PRN NEEDED 04/03/2014 06/01/2014 Inactive hydrocodone 10 mg-acetaminophen 325 mg tablet RxNorm: 839679 Tablet(s) TAKE 1-2 TABLETS BY MOUTH EVERY 6 HOURS NEEDED FOR PAIN 03/22/2014 04/20/2014 Inactive ( Response to an electronic controlled substance refill request - RxReferenceNumber: [id number]|1|0|1) Claritin-D 12 Hour 5 mg-120 mg tablet,extended release RxNorm: 8820538 1 Tablet(s ) PO BID 03/22/2014 2014 Inactive diazepam 10 mg tablet RxNorm: 397434 TAKE 1 TABLET BY MOUTH THREE TIMES DAILY NEEDED 03/19/2014 04/16/2014 Inactive (Response to an electronic controlled substance refill request - RxReferenceNumber: [id number]|1|0|1) Lipitor 20 mg tablet RxNorm: 869775 1 TABLET(S) PO DAILY 201312/05/2014 Inactive TAKE ONE TABLET BY MOUTH EVERY NIGHT AT BEDTIME Effexor XR 150 mg capsule,extended release RxNorm: 151714 1 CAPSULE(S) PO BID 03/01/2014 01/24/2015 Inactive TAKE 1 CAPSULE BY MOUTH TWICE DAILY Claritin-D 12 Hour 5 mg-120 mg tablet,extended release RxNorm: 2952460 1 Tablet(s ) PO BID 02/19/2014 03/21/2014 Inactive cyanocobalamin (vit B-12) 1,000 mcg/mL injection solution RxNorm: 717159 Milliliter(s) Inj 02/15/2014 02/15/2014 Inactive hydrocodone 10 mg-acetaminophen 325 mg tablet RxNorm: 809389 1 Tablet(s) PO Q6 PRN TAKE ONE TO TWO TABLETS BY MOUTH EVERY 6 HOURS NEEDED FOR PAIN 01/30/2014 01/30/2014 Inactive (Response to an electronic controlled substance refill request - RxReferenceNumber: [id number]|1|0|1) hydrocodone 10 mg-acetaminophen 325 mg tablet RxNorm: 284288 TAKE 1-2 TABLETS BY MOUTH EVERY 6 HOURS NEEDED FOR PAIN 01/30/2014 02/19/2014 Inactive (Response to an electronic controlled substance refill request - RxReferenceNumber: [id number]| [id number]|1|0|1) cyanocobalamin (vit B-12) 1,000 mcg/mL injection kit RxNorm: 635725 1 Milliliter(s ) Inj 01/15/2014 01/15/2014 Inactive Kenalog 40 mg/mL suspension for injection RxNorm: 3610109 1 Milliliter(s) Inj 01/15/2014 01/15/2014 Inactive Anucort-HC 25 mg suppository RxNorm: 6630508 1 Suppository RTL QDAY PRN as needed 01/15/2014 02/13/2014 Inactive hydrocodone 10 mg-acetaminophen 325 mg tablet RxNorm: 808842 TAKE ONE TO TWO TABLETS BY MOUTH EVERY 6 HOURS NEEDED FOR PAIN 12/29/2013 01/18/2014 Inactive ( Response to an electronic controlled substance refill request - RxReferenceNumber: [id number]|1|0|1) trazodone 100 mg tablet RxNorm: 660822 TAKE 2 TABLETS BY MOUTH EVERY NIGHT AT BEDTIME 12/20/2013 12/14/2014 Inactive mupirocin 2 % topical ointment RxNorm: 592713 1 APPLICATION TOP PRN 12/14/2013 01/09/2015 Inactive cyanocobalamin (vit B-12) 1,000 mcg/mL injection solution RxNorm: 837528 1 Milliliter(s) Inj 12/04/2013 12/04/2013 Inactive Savella 100 mg tablet RxNorm: 467369 1 Tablet(s) PO daily TAKE 1 TABLET BY MOUTH DAILY 11/28/2013 11/05/2016 Inactive Savella 100 mg tablet RxNorm: 915097 Tablet(s) PO TAKE 1 TABLET BY MOUTH DAILY 10/27/2013 11/27/2013 Inactive mupirocin 2 % topical ointment RxNorm: 838654 1 Application TOP PRN 10/17/2013 No Stop Date Active trazodone 100 mg tablet RxNorm: 322163 Tablet(s) PO TAKE 2 TABLETS BY MOUTH EVERY NIGHT AT BEDTIME 09/26/2013 11/05/2016 Inactive cyclobenzaprine 10 mg tablet RxNorm: 521260 Tablet(s) PO TAKE ONE TABLET BY MOUTH THREE TIMES DAILY 09/26/2013 01/07/2015 Inactive diazepam 10 mg tablet RxNorm: 966058 Tablet(s) PO TAKE 1 TABLET BY MOUTH THREE TIMES DAILY NEEDED 08/15/20132013 Inactive (Appended: Controlled substance eRx refill - RxReferenceNumber: [id number]|1|0|1) diazepam 10 mg tablet RxNorm: 466534 1 Tablet(s) PO TID PRN TAKE 1 TABLET BY MOUTH THREE TIMES DAILY NEEDED 08/15/2013 Inactive (Appended: Controlled substance eRx refill - RxReferenceNumber: [id number]|1|0|1) Vitamin B-12 1,000 mcg/mL injection solution RxNorm: 970234 Milliliter(s) Inj 07/24/2013 07/24/2013 Inactive pantoprazole 40 mg tablet,delayed release RxNorm: 292818 Tablet(s) PO TAKE 1 TABLET BY MOUTH EVERY DAY 07/20/201308/08 Inactive hydrocodone 10 mg-acetaminophen 325 mg tablet RxNorm: 717913 1 or 2 Tablet(s) PO Q6 PRN limit 6 per day 06/26/20132013 Inactive (Appended: Controlled substance eRx refill - RxReferenceNumber: [id number]|1|0|1) trazodone 100 mg tablet RxNorm: 348703 Tablet(s) PO TAKE 2 TABLETS BY MOUTH EVERY NIGHT AT BEDTIME 06/26/2013 11/05/2016 Inactive pantoprazole 40 mg tablet,delayed release RxNorm: 688598 Tablet(s) PO TAKE 1 TABLET BY MOUTH EVERY DAY 06/20/201306/05 Inactive prednisone 10 mg tablets in a dose pack RxNorm: 167155 Tablet(s) PO 6-5-4-3-2-1 06/13/2013 06/12/2013 Inactive prednisone 10 mg tablets in a dose pack RxNorm: 980111 Tablet(s) PO UD 6-5-4-3-2- 1 06/13/2013 06/18/2013 Inactive Silvadene 1 % topical cream RxNorm: 035692 1 TOP daily apply thin layer to left knee daily 06/12/2013 06/18/2013 Inactive metoprolol tartrate 25 mg tablet RxNorm: 680231 1/2 Tablet(s) PO BID TAKE 1/2 TABLET BY MOUTH TWICE DAILY 05/19/2013 Inactive Lipitor 20 mg tablet RxNorm: 782397 1 Tablet(s) PO daily 201203/11/2014 Inactive TAKE ONE TABLET BY MOUTH EVERY NIGHT AT BEDTIME Vitamin B-12 1,000 mcg/mL injection solution RxNorm: 432186 1 Milliliter(s) Inj 05/10/2013 05/10/2013 Inactive hydrocodone 10 mg-acetaminophen 325 mg tablet RxNorm: 518149 1 or 2 Tablet(s) PO Q6 PRN limit 6 per day 03/16/2013 No Stop Date Active (Appended: Controlled substance eRx refill - RxReferenceNumber: [id number]|1|0|1) Seroquel 100 mg tablet RxNorm: 441287 1 Tablet(s) PO BID 201203/10/2014 Inactive TAKE 1 TABLET BY MOUTH TWICE DAILY Effexor XR 150 mg capsule,extended release RxNorm: 923667 1 Capsule(s) PO BID 03/16/2013 02/28/2014 Inactive TAKE 1 CAPSULE BY MOUTH TWICE DAILY fluconazole 150 mg tablet RxNorm: 704825 1 Tablet(s) PO daily 03/06/2013 03/12/2013 Inactive Kenalog 40 mg/mL Susp for Injection RxNorm: 8046350 Milliliter(s) Inj 03/06/2013 03/06/2013 Inactive Ventolin HFA 90 mcg/actuation Aerosol Inhaler RxNorm: 2801750 1 or 2 Puff(s) INH Q6 PRN 02/20/2013 03/16/2014 Inactive cyanocobalamin (vitamin B-12) 1,000 mcg/mL Injection RxNorm: 469789 Milliliter(s) Inj 02/20/2013 02/20/2013 Inactive Valium 10 mg tablet RxNorm: 748598 1 Tablet(s) PO Q8 PRN 01/3102/24/2014 Inactive Kenalog 40 mg/mL Susp for Injection RxNorm: 3682392 Milliliter(s) Inj 12/26/2012 12/26/2012 Inactive cyanocobalamin (vitamin B-12) 1,000 mcg/mL Injection RxNorm: 246468 Milliliter(s) Inj 12/21/2012 12/21/2012 Inactive hydrocodone 10 mg-acetaminophen 325 mg tablet RxNorm: 3719936 1 or 2 Tablet(s) PO Q6 PRN limit 6 per day 11/25/20122012 Inactive (Appended: Controlled substance eRx refill - RxReferenceNumber: [id number]|1|0|1) diazepam 10 mg tablet RxNorm: 513787 1 Tablet(s) PO TID PRN 08/15/2013 Inactive TAKE 1 TABLET BY MOUTH THREE TIMES DAILY NEEDED (Appended: Controlled substance eRx refill - RxReferenceNumber: [id number]|1|0|1) diazepam 10 mg tablet RxNorm: 934845 Tablet(s) PO TAKE 1 TABLET BY MOUTH THREE TIMES DAILY NEEDED 11/21/20122013 Inactive (Appended: Controlled substance eRx refill - RxReferenceNumber: [id number]|1|0|1) Vitamin B-12 1,000 mcg/mL Injection RxNorm: 549923 1 Milliliter(s) Inj 11/16/2012 11/16/2012 Inactive hydrocodone 10 mg-acetaminophen 325 mg tablet RxNorm: 6092118 1 or 2 Tablet(s) PO Q6 PRN limit 6 per day 10/24/20122012 Inactive (Appended: Controlled substance eRx refill - RxReferenceNumber: [id number]|1|0|1) hydrocodone 10 mg-acetaminophen 325 mg tablet RxNorm: 4808150 Tablet(s) PO limit 5x days 10/24/2012 10/23/2012 Inactive (Appended: Controlled substance eRx refill - RxReferenceNumber: [id number]|1|0|1) Savella 100 mg tablet RxNorm: 913488 Tablet(s) PO TAKE 1 TABLET BY MOUTH DAILY 10/14/2012 12/05/2014 Inactive Tubersol 5 tub. unit/0.1 mL Intradermal RxNorm: 014816 Milliliter(s) IDrm 09/26/2012 09/26/2012 Inactive hydrocodone 10 mg-acetaminophen 325 mg tablet RxNorm: 5409233 1 Tablet(s) PO Q4 PRN q 4 hr prn limit 5 per day 09/19/2012 No Stop Date Active (Appended: Controlled substance eRx refill - RxReferenceNumber: [id number]|1|0|1) hydrocodone 10 mg-acetaminophen 325 mg tablet RxNorm: 0191605 Tablet(s) PO TAKE 1 TABLET BY MOUTH FOUR TIMES DAILY 09/16/2012 10/23/2012 Inactive (Appended: Controlled substance eRx refill - RxReferenceNumber: [id number]|1|0|1) cyclobenzaprine 10 mg tablet RxNorm: 067812 Tablet(s) PO TAKE ONE TABLET BY MOUTH THREE TIMES DAILY 09/16/2012 09/25/2013 Inactive hydrocodone 10 mg-acetaminophen 325 mg tablet RxNorm: 2399466 1 Tablet(s) PO Q4 PRN q 4 hr prn limit 5 per day 09/14/2012 09/19/2012 Inactive (Appended: Controlled substance eRx refill - RxReferenceNumber: [id number]|1|0|1) cyanocobalamin (vitamin B-12) 1,000 mcg/mL Injection RxNorm: 813612 1 Milliliter(s ) Inj 09/12/2012 09/12/2012 Inactive cyclobenzaprine 10 mg tablet RxNorm: 237370 Tablet(s) PO TAKE ONE TABLET BY MOUTH THREE TIMES DAILY 09/02/2012 09/15/2012 Inactive hydrocodone 10 mg-acetaminophen 325 mg tablet RxNorm: 8365920 1 Tablet(s) PO QID TAKE 1 TABLET BY MOUTH FOUR TIMES DAILY 08/23/2012 09/13/2012 Inactive (Appended: Controlled substance eRx refill - RxReferenceNumber: [id number]|1|0|1) Kenalog 40 mg/mL Susp for Injection RxNorm: 1922244 1 Milliliter(s) Inj 08/11/2012 08/11/2012 Inactive Vitamin B-12 1,000 mcg/mL Injection RxNorm: 393652 1 Milliliter(s) Inj 08/11/2012 08/11/2012 Inactive Zithromax 250 mg tablet RxNorm: 141884 Tablet(s) PO 07/21/2012 09/14/2012 Inactive please give z lauro cefdinir 300 mg capsule RxNorm: 521584 1 Capsule(s) PO BID 07/20/2012 Inactive cefdinir 300 mg capsule RxNorm: 142436 1 Capsule(s) PO BID 07/27/2012 Inactive diazepam 10 mg tablet RxNorm: 271822 1 Tablet(s) PO TID PRN 12/201211/22/2012 Inactive TAKE 1 TABLET BY MOUTH THREE TIMES DAILY NEEDED (Appended: Controlled substance eRx refill - RxReferenceNumber: [id number]|1|0|1) Vitamin B-12 1,000 mcg/mL Injection RxNorm: 313289 1 Milliliter(s) Inj 07/13/2012 07/13/2012 Inactive pantoprazole 40 mg tablet,delayed release RxNorm: 460492 1 Tablet(s) PO daily 06/14/2012 06/13/2012 Inactive pantoprazole 40 mg tablet,delayed release RxNorm: 654984 1 Tablet(s) PO daily 06/14/2012 06/19/2013 Inactive trazodone 100 mg tablet RxNorm: 428488 Tablet(s) PO TAKE 2 TABLETS BY MOUTH EVERY NIGHT AT BEDTIME 06/06/2012 11/05/2016 Inactive hydrocodone 10 mg-acetaminophen 325 mg tablet RxNorm: 9668221 Tablet(s) PO TAKE 1 TABLET BY MOUTH FOUR TIMES DAILY 05/24/2012 08/23/2012 Inactive (Appended: Controlled substance eRx refill - RxReferenceNumber: [id number]|1|0|1) Symbicort 160 mcg-4.5 mcg/actuation HFA Aerosol Inhaler RxNorm: 4963586 1 INH daily 05/24/2012 05/23/2012 Inactive this is an increase in dosing Symbicort 160 mcg-4.5 mcg/actuation HFA Aerosol Inhaler RxNorm: 0444639 1 INH daily 05/24/2012 06/17/2013 Inactive this is an increase in dosing Ventolin HFA 90 mcg/actuation Aerosol Inhaler RxNorm: 347923 1 or 2 Puff(s) INH Q6 PRN 05/24/2012 05/23/2012 Inactive Ventolin HFA 90 mcg/actuation Aerosol Inhaler RxNorm: 773012 1 or 2 Puff(s) INH Q6 PRN 05/24/2012 02/19/2013 Inactive metoprolol tartrate 25 mg tablet RxNorm: 346770 Tablet(s) PO TAKE 1/2 TABLET BY MOUTH TWICE DAILY 05/24/2012 05/18/2013 Inactive hydrocodone-acetaminophen 10 mg-325 mg tablet RxNorm: 3975753 Tablet(s) PO TAKE 1 TABLET BY MOUTH FOUR TIMES DAILY 05/17/2012 05/17/2012 Inactive (Appended: Controlled substance eRx refill - RxReferenceNumber: [id number]|1|0|1) diazepam 10 mg tablet RxNorm: 082454 Tablet(s) PO 05/03/2012 07/13/2012 Inactive TAKE 1 TABLET BY MOUTH THREE TIMES DAILY NEEDED (Appended: Controlled substance eRx refill - RxReferenceNumber: [id number]|1|0|1) metoprolol tartrate 25 mg tablet RxNorm: 627463 Tablet(s) PO 11/05/2016 Inactive TAKE 1/2 TABLET BY MOUTH TWICE DAILY hydrocodone-acetaminophen 10 mg-325 mg tablet RxNorm: 6295798 Tablet(s) PO 04/11/2012 05/17/2012 Inactive TAKE 1 TABLET BY MOUTH FOUR TIMES DAILY (Appended: Controlled substance eRx refill - RxReferenceNumber: [id number]|1|0|1) ProAir HFA 90 mcg/actuation Aerosol Inhaler RxNorm: 770553 2 INH Q4 PRN 04/05/2012 04/29/2013 Inactive Symbicort 80 mcg-4.5 mcg/actuation HFA Aerosol Inhaler RxNorm: 6419166 2 INH BID 04/05/2012 04/04/2012 Inactive Symbicort 80 mcg-4.5 mcg/actuation HFA Aerosol Inhaler RxNorm: 0706856 2 INH BID 04/05/2012 05/23/2012 Inactive ProAir HFA 90 mcg/actuation Aerosol Inhaler RxNorm: 066270 2 INH Q4 PRN 04/05/2012 04/04/2012 Inactive diazepam 10 mg tablet RxNorm: 589094 Tablet(s) PO 03/17/2012 05/03/2012 Inactive TAKE 1 TABLET BY MOUTH THREE TIMES DAILY NEEDED (Appended: Controlled substance eRx refill - RxReferenceNumber: [id number]|1|0|1) Effexor XR 150 mg capsule,extended release RxNorm: 492355 Capsule(s) PO 03/13/2012 03/15/2013 Inactive TAKE 1 CAPSULE BY MOUTH TWICE DAILY fluconazole 150 mg tablet RxNorm: 046748 1 Tablet(s) PO daily 03/11/2012 03/17/2012 Inactive Lipitor 20 mg tablet RxNorm: 004824 Tablet(s) PO 02/25/2012 03/20/2013 Inactive TAKE ONE TABLET BY MOUTH EVERY NIGHT AT BEDTIME Seroquel 100 mg tablet RxNorm: 162596 1 Tablet(s) PO BID 201102/18/2013 Inactive TAKE 1 TABLET BY MOUTH TWICE DAILY hydrocodone-acetaminophen 10 mg-325 mg tablet RxNorm: 5037942 Tablet(s) PO 02/25/2012 04/11/2012 Inactive TAKE 1 TABLET BY MOUTH FOUR TIMES DAILY . (Appended : Controlled substance eRx refill - RxReferenceNumber: [id number]|1|0|1) Seroquel 100 mg tablet RxNorm: 824904 1 Tablet(s) PO BID 201102/24/2012 Inactive TAKE 1 TABLET BY MOUTH TWICE DAILY Nexium 40 mg capsule,delayed release RxNorm: 887270 1 Capsule(s) PO daily 02/16/2012 06/13/2012 Inactive Effexor XR 150 mg capsule,extended release RxNorm: 314825 Capsule(s) PO 01/14/2012 11/05/2016 Inactive TAKE 1 CAPSULE BY MOUTH TWICE DAILY Kenalog 40 mg/mL Susp for Injection RxNorm: 4507296 1 Milliliter(s) Inj 01/13/2012 01/13/2012 Inactive Vitamin B-12 1,000 mcg/mL Injection RxNorm: 840411 Milliliter(s) Inj 12/21/2011 12/21/2011 Inactive hydrocodone-acetaminophen 10 mg-325 mg tablet RxNorm: 3566375 Tablet(s) PO 12/15/2011 02/25/2012 Inactive TAKE 1 TABLET BY MOUTH FOUR TIMES DAILY (Appended: Controlled substance eRx refill - RxReferenceNumber: [id number]|1|0|1) diazepam 10 mg tablet RxNorm: 713988 Tablet(s) PO 12/15/2011 03/17/2012 Inactive TAKE 1 TABLET BY MOUTH THREE TIMES DAILY NEEDED (Appended: Controlled substance eRx refill - RxReferenceNumber: [id number]|1|0|1) diazepam 10 mg Tab RxNorm: 644439 1 Tablet(s) PO daily 201112/15/2011 Inactive TAKE 1 TABLET BY MOUTH THREE TIMES DAILY (Appended: Controlled substance eRx refill - RxReferenceNumber: [id number]|1|0|1) hydrocodone-acetaminophen 10 mg-325 mg Tab RxNorm: 5816940 1 Tablet(s) PO QID 12/14/2011 12/15/2011 Inactive TAKE 1 TABLET BY MOUTH FOUR TIMES DAILY (Appended: Controlled substance eRx refill - RxReferenceNumber: [id number]|1|0|1) Seroquel 100 mg tablet RxNorm: 750648 Tablet(s) PO 11/27/2011 03/15/2013 Inactive TAKE 1 TABLET BY MOUTH TWICE DAILY hydrocodone-acetaminophen 10 mg-325 mg Tab RxNorm: 8061098 1 Tablet(s) PO QID 11/27/2011 12/13/2011 Inactive TAKE 1 TABLET BY MOUTH FOUR TIMES DAILY (Appended: Controlled substance eRx refill - RxReferenceNumber: [id number]|1|0|1) Seroquel 100 mg Tab RxNorm: 678233 1 Tablet(s) PO BID 201111/26/2011 Inactive Seroquel 100 mg tablet RxNorm: 645500 Tablet(s) PO 11/27/2011 02/16/2012 Inactive TAKE 1 TABLET BY MOUTH TWICE DAILY Nexium 40 mg capsule,delayed release RxNorm: 731456 1 Capsule(s) PO daily 11/16/2011 02/15/2012 Inactive cyanocobalamin (vitamin B-12) 1,000 mcg/mL Injection RxNorm: 039921 1 Milliliter(s ) Inj 10/30/2011 10/30/2011 Inactive hydrocodone-acetaminophen 10 mg-325 mg Tab RxNorm: 7810887 1 Tablet(s) PO QID 10/13/2011 11/23/2011 Inactive TAKE 1 TABLET BY MOUTH FOUR TIMES DAILY (Appended: Controlled substance eRx refill - RxReferenceNumber: [id number]|1|0|1) Effexor XR 150 mg capsule,extended release RxNorm: 202467 1 Capsule(s) PO BID 10/12/2011 01/09/2012 Inactive Fish Oil 1,000 mg Cap RxNorm: 1 Capsule(s) PO QID 10/02/2011 No Stop Date Active Vitamin B-12 1,000 mcg/mL Injection RxNorm: 769508 Milliliter(s) Inj 10/02/2011 10/02/2011 Inactive Kenalog 40 mg/mL Susp for Injection RxNorm: 3015994 Milliliter(s) Inj 10/02/2011 10/02/2011 Inactive diazepam 10 mg Tab RxNorm: 682555 1 Tablet(s) PO daily 201112/13/2011 Inactive TAKE 1 TABLET BY MOUTH THREE TIMES DAILY (Appended: Controlled substance eRx refill - RxReferenceNumber: [id number]|1|0|1) Vitamin B-12 1,000 mcg/mL Injection RxNorm: 997802 Milliliter(s) Inj 09/01/2011 09/01/2011 Inactive hydrocodone-acetaminophen 10 mg-325 mg Tab RxNorm: 9806363 1 Tablet(s) PO QID 08/25/2011 10/05/2011 Inactive TAKE 1 TABLET BY MOUTH FOUR TIMES DAILY (Appended: Controlled substance eRx refill - RxReferenceNumber: [id number]|1|0|1) diazepam 10 mg Tab RxNorm: 904815 Tablet(s) PO 08/10/2011 No Stop Date Active TAKE 1 TABLET BY MOUTH THREE TIMES DAILY (Appended: Controlled substance eRx refill - RxReferenceNumber: [id number]|1|0|1) Vitamin B-12 1,000 mcg/mL Injection RxNorm: 165625 Milliliter(s) Inj 08/03/2011 08/03/2011 Inactive fluticasone 50 mcg/actuation Nasal [place], Susp RxNorm: 4009607 2 [place] NASAL BID 07/27/2011 08/19/2012 Inactive hydrocodone-acetaminophen 10 mg-325 mg Tab RxNorm: 5391368 Tablet(s) PO 07/09/2011 08/24/2011 Inactive TAKE 1 TABLET BY MOUTH FOUR TIMES DAILY (Appended: Controlled substance eRx refill - RxReferenceNumber: [id number]|1|0|1) diazepam 10 mg Tab RxNorm: 683256 Tablet(s) PO 07/09/2011 08/09/2011 Inactive TAKE 1 TABLET BY MOUTH THREE TIMES DAILY (Appended: Controlled substance eRx refill - RxReferenceNumber: [id number]|1|0|1) diazepam 10 mg Tab RxNorm: 204938 Tablet(s) PO 07/08/2011 07/08/2011 Inactive TAKE 1 TABLET BY MOUTH THREE TIMES DAILY (Appended: Controlled substance eRx refill - RxReferenceNumber: [id number]|1|0|1) hydrocodone-acetaminophen 10 mg-325 mg Tab RxNorm: 1323514 Tablet(s) PO 07/08/2011 07/08/2011 Inactive TAKE 1 TABLET BY MOUTH FOUR TIMES DAILY (Appended: Controlled substance eRx refill - RxReferenceNumber: [id number]|1|0|1) cyclobenzaprine 10 mg tablet RxNorm: 337226 Tablet(s) PO 201109/01/2012 Inactive TAKE ONE TABLET BY MOUTH THREE TIMES DAILY Lipitor 40 mg Tab RxNorm: 089726 1 Tablet(s) PO daily 201106/16/2011 Inactive Lipitor 40 mg Tab RxNorm: 083322 1 Tablet(s) PO daily 201106/10/2012 Inactive trazodone 100 mg tablet RxNorm: 831582 Tablet(s) PO 06/02/2011 06/05/2012 Inactive TAKE 2 TABLETS BY MOUTH EVERY NIGHT AT BEDTIME diazepam 10 mg Tab RxNorm: 369600 Tablet(s) PO 05/28/2011 05/29/2011 Inactive TAKE 1 TABLET BY MOUTH THREE TIMES DAILY (Appended: Controlled substance eRx refill - RxReferenceNumber: [id number]|1|0|1) diazepam 10 mg Tab RxNorm: 068553 Tablet(s) PO 05/28/2011 07/08/2011 Inactive TAKE 1 TABLET BY MOUTH THREE TIMES DAILY (Appended: Controlled substance eRx refill - RxReferenceNumber: [id number]|1|0|1) hydrocodone-acetaminophen 10 mg-325 mg Tab RxNorm: 3108203 1 Tablet(s) PO QID 05/26/2011 07/08/2011 Inactive metoprolol tartrate 25 mg tablet RxNorm: 407459 Tablet(s) PO 04/10/2012 Inactive TAKE 1/2 TABLET BY MOUTH TWICE DAILY Savella 100 mg tablet RxNorm: 717633 Tablet(s) PO 05/14/2011 10/13/2012 Inactive TAKE 1 TABLET BY MOUTH DAILY Influenza Virus Vaccine 0.5 mL RxNorm: IM 02/23/2011 02/23/2011 Inactive B12 1000 mcg RxNorm: IM 02/23/20112010 Inactive hydrocodone-acetaminophen 10 mg-325 mg Tab RxNorm: 0143327 1 Tablet(s) PO QID 01/29/2011 01/28/2011 Inactive Restasis 0.05 % eye drops in a dropperette RxNorm: 020228 1 OPH BID No Start Date Active vitamin A-vit C-vit E-zinc-Se Tab RxNorm: 1 Tablet(s) PO daily No Start Date Active garlic extract Oral RxNorm: Oral No Start Date Active Acidophilus Tab RxNorm : 2 Tablet(s) PO QHS No Start Date Active Cranberry Concentrate Cap RxNorm: 1 Capsule(s) PO BID No Start Date Active Xopenex 1.25 mg/3 mL Neb Solution RxNorm: 209701 1 Milliliter(s) INH TID No Start Date Active niacin ER 500 mg Tab RxNorm: 043884 2 Tablet(s) PO HS No Start Date Active SenokotXTRA 17.2 mg Tab RxNorm: 6836254 Oral No Start Date Active Lotemax 0.5 % eye ointment RxNorm: 1987434 1 OPH QHS No Start Date Active prednisone 10 mg tablet RxNorm: 928592 Tablet(s) PO taper. 6-5-4-3-2-1 # 21 No Start Date Active Gaviscon Extra Strength Oral RxNorm: Oral No Start Date Active melatonin 3 mg Tab RxNorm: 543407 1 Tablet(s) PO QHS No Start Date Active Voltaren 1 % Topical Gel RxNorm: 751956 4 Gram(s) TOP QID No Start Date Active Vitamin D 1,000 unit Cap RxNorm: 619308 1 Capsule(s) PO QHS No Start Date Active Mucinex DM 30 mg-600 mg 12 hr Tab RxNorm: 6231202 1 Tablet(s) PO BID No Start Date Active calcium citrate 200 mg (950 mg) Tab RxNorm: 610658 1 Tablet(s) PO QID No Start Date Active valerian 530 mg Cap RxNorm: 2 Capsule(s) PO QHS No Start Date Active Anucort-HC 25 mg Suppository RxNorm: 9324583 1 Suppository RTL QDAY PRN No Start Date 01/14/2014 Inactive Nexium 40 mg Capsule, delayed release RxNorm: 443013 1 Capsule(s) PO daily No Start Date 11/15/2011 Inactive Lipitor 20 mg tablet RxNorm: 688543 1 Tablet(s) PO QHS No Start Date 02/25/2012 Inactive mupirocin 2 % topical ointment RxNorm: 325722 1 Application TOP PRN No Start Date 10/16/2013 Inactive fluconazole 150 mg tablet RxNorm: 196410 1 Tablet(s) PO daily No Start Date 03/10/2012 Inactive Fish Oil 1,000 mg Cap RxNorm: 1 Capsule(s) PO TID No Start Date 10/01/2011 Inactive hydrocodone-acetaminophen 10 mg-325 mg Tab RxNorm: 8005298 1 Tablet(s) PO QID No Start Date 05/25/2011 Inactive Zithromax 250 mg tablet RxNorm: 755996 Tablet(s) PO No Start Date 07/20/2012 Inactive please give z lauro fluticasone 50 mcg/actuation Nasal [place], Susp RxNorm: 4292830 2 [place] NASAL BID No Start Date 07/26/2011 Inactive Seroquel 100 mg Tab RxNorm: 475936 1 Tablet(s) PO BID No Start Date 11/26/2011 Inactive nystatin 100,000 unit/gram topical powder RxNorm: 603080 1 Application TOP QID until healed No Start Date 10/26/2016 Inactive Savella 100 mg Tab RxNorm: 246298 1 Tablet(s) PO daily No Start Date 05/13/2011 Inactive cyclobenzaprine 10 mg Tab RxNorm: 146229 1 Tablet(s) PO TID No Start Date 07/05/2011 Inactive metoprolol tartrate 25 mg Tab RxNorm: 272327 1/2 Tablet(s) PO BID No Start Date 05/25/2011 Inactive trazodone 100 mg Tab RxNorm: 495525 2 Tablet(s) PO QHS No Start Date 06/01/2011 Inactive Zithromax Z-Lauro 250 mg tablet RxNorm: 345666 1 Tablet(s) PO UD No Start Date 07/11/2015 Inactive z lauro Effexor XR 150 mg 24 hr Cap RxNorm: 847248 1 Capsule(s) PO BID No Start Date 10/11/2011 Inactive diazepam 10 mg Tab RxNorm: 810186 1 Tablet(s) PO TID No Start Date 05/28/2011 Inactive tramadol 50 mg tablet RxNorm: 070076 1-2 Tablet(s) PO Q6 as needed No Start Date 05/28/2015 Inactive Medication Administered Medication Codes Instructions Start Date Status cyanocobalamin (vit B-12) 1,000 mcg/mL injection solution RxNorm: 192932 1Milliliter 04/27/2017 No longer Active cyanocobalamin (vit B-12) 1,000 mcg/mL injection solution RxNorm: 637315 1Milliliter 11/17/2016 No longer Active cyanocobalamin (vit B-12) 1,000 mcg/mL injection solution RxNorm: 296192 1Milliliter 10/12/2016 No longer Active cyanocobalamin (vit B-12) 1,000 mcg/mL injection solution RxNorm: 380977 1Milliliter 09/11/2016 No longer Active cyanocobalamin (vit B-12) 1,000 mcg/mL injection solution RxNorm: 810131 Milliliter 07/03/2016 No longer Active cyanocobalamin (vit B-12) 1,000 mcg/mL injection solution RxNorm: 141129 1Milliliter 04/20/2016 No longer Active cyanocobalamin (vit B-12) 1,000 mcg/mL injection solution RxNorm: 589802 Milliliter 02/13/2016 No longer Active cyanocobalamin (vit B-12) 1,000 mcg/mL injection solution RxNorm: 855895 1Milliliter 12/02/2015 No longer Active cyanocobalamin (vit B-12) 1,000 mcg/mL injection solution RxNorm: 443329 1Milliliter 10/29/2015 No longer Active cyanocobalamin (vit B-12) 1,000 mcg/mL injection solution RxNorm: 605339 Milliliter 06/10/2015 No longer Active cyanocobalamin (vit B-12) 1,000 mcg/mL injection solution RxNorm: 139416 Milliliter 02/15/2014 No longer Active cyanocobalamin (vit B-12) 1,000 mcg/mL injection kit RxNorm : 422512 1Milliliter 01/15/2014 No longer Active Kenalog 40 mg/mL suspension for injection RxNorm: 6988094 1Milliliter 01/15/2014 No longer Active cyanocobalamin (vit B-12) 1,000 mcg/mL injection solution RxNorm: 414085 1Milliliter 12/04/2013 No longer Active Vitamin B-12 1,000 mcg/mL injection solution RxNorm: 193313 Milliliter 07/24/2013 No longer Active Vitamin B-12 1,000 mcg/mL injection solution RxNorm: 189633 1Milliliter 05/10/2013 No longer Active Kenalog 40 mg/mL Susp for Injection RxNorm: 6284970 Milliliter 03/06/2013 No longer Active cyanocobalamin (vitamin B-12) 1,000 mcg/mL Injection RxNorm : 231563 Milliliter 02/20/2013 No longer Active Kenalog 40 mg/mL Susp for Injection RxNorm: 3761814 Milliliter 12/26/2012 No longer Active cyanocobalamin (vitamin B-12) 1,000 mcg/mL Injection RxNorm : 309826 Milliliter 12/21/2012 No longer Active Vitamin B-12 1,000 mcg/mL Injection RxNorm: 407706 1Milliliter 11/16/2012 No longer Active Tubersol 5 tub. unit/0.1 mL Intradermal RxNorm: 153264 Milliliter 09/26/2012 No longer Active cyanocobalamin (vitamin B-12) 1,000 mcg/mL Injection RxNorm : 695080 1Milliliter 09/12/2012 No longer Active Kenalog 40 mg/mL Susp for Injection RxNorm: 8396089 1Milliliter 08/11/2012 No longer Active Vitamin B-12 1,000 mcg/mL Injection RxNorm: 432416 1Milliliter 08/11/2012 No longer Active Vitamin B-12 1,000 mcg/mL Injection RxNorm: 321502 1Milliliter 07/13/2012 No longer Active Kenalog 40 mg/mL Susp for Injection RxNorm: 4811743 1Milliliter 01/13/2012 No longer Active Vitamin B-12 1,000 mcg/mL Injection RxNorm: 229402 Milliliter 12/21/2011 No longer Active cyanocobalamin (vitamin B-12) 1,000 mcg/mL Injection RxNorm : 717035 1Milliliter 10/30/2011 No longer Active Kenalog 40 mg/mL Susp for Injection RxNorm: 6915056 Milliliter 10/02/2011 No longer Active Vitamin B-12 1,000 mcg/mL Injection RxNorm: 267657 Milliliter 10/02/2011 No longer Active Vitamin B-12 1,000 mcg/mL Injection RxNorm: 857595 Milliliter 09/01/2011 No longer Active Vitamin B-12 1,000 mcg/mL Injection RxNorm: 609104 Milliliter 08/03/2011 No longer Active Influenza Virus Vaccine 0.5 mL RxNorm: 02/23/2011 No longer Active B12 1000 mcg RxNorm: 02/23/2011 No longer Active Immunizations Vaccine Codes Date Status Influenza CVX: 141 03/17/2016 completed Pneumococcal (Adult) CVX: 133 12/02/2015 completed PPD Unknown 05/16/2015 completed PPD Unknown 05/29/2013 completed PPD Unknown 05/19/2013 completed Influenza CVX: 141 02/20/2013 completed Influenza CVX: 141 03/02/2012 completed Influenza CVX: 141 02/23/2011 completed Assessments Condition Codes Effective Dates Cervicalgia ICD-10: M54.2 ICD-9: 723.1 04/27/2017 Vitamin B12 deficiency anemia due to intrinsic factor deficiency ICD-10: D51.0 ICD-9: 281.0 04/27/2017 Laceration without foreign body of scalp, initial encounter ICD-10: S01.01XA ICD-9: 873.0 04/27/2017 Residual hemorrhoidal skin tags ICD-10: K64.4 ICD-9: 455.9 04/06/2017 Pain in right foot ICD-10: M79.671 ICD-9: 729.5 02/25/2017 Pain in left foot ICD-10: M79.672 ICD-9: 729.5 02/25/2017 Chronic pain syndrome ICD-10: G89.4 ICD-9: 338.4 01/19/2017 Spinal stenosis, cervical region ICD-10: M48.02 ICD-9: 723.0 01/19/2017 Essential (primary) hypertension ICD-10: I10 ICD-9: 401.1 01/19/2017 Pain in right leg ICD-10: M79.604 ICD-9: 729.5 01/19/2017 Vitamin B12 deficiency anemia, unspecified ICD-10: D51.9 ICD-9: 266.2 11/17/2016 Foot drop, right foot ICD-10: M21.371 ICD-9: 736.79 10/12/2016 Other abnormalities of gait and mobility ICD-10: R26.89 ICD-9: 781.2 10/12/2016 Foot drop, left foot ICD-10: M21.372 ICD-9: 736.79 10/12/2016 Pain in right ankle and joints of right foot ICD-10: M25.571 ICD-9: 719.47 08/18/2016 Superficial foreign body, right foot, initial encounter ICD- 10: S90.851A ICD-9: 917.6 08/18/2016 Candidiasis of vulva and vagina ICD-10: B37.3 ICD-9: 112.1 08/07/2016 Pain in left ankle and joints of left foot ICD-10: M25.572 ICD-9: 719.47 07/31/2016 Low back pain ICD-10: M54.5 ICD-9: 724.2 07/07/2016 Mixed hyperlipidemia ICD-10: E78.2 ICD-9: 272.2 06/25/2016 Pleurodynia ICD-10: R07.81 ICD-9: 786.50 04/20/2016 Generalized anxiety disorder ICD-10: F41.1 ICD-9: 300.02 04/20/2016 Hypoxemia ICD-10: R09.02 ICD-9: 799.02 04/20/2016 Encounter for immunization ICD-10: Z23 ICD-9: V04.81 03/17/2016 Radiculopathy, lumbar region ICD-10: M54.16 ICD-9: 724.4 03/17/2016 Vitamin D deficiency, unspecified ICD-10: E55.9 ICD-9: 268.9 02/13/2016 Mixed hyperlipidemia ICD-10: E78.2 ICD-9: 272.4 02/13/2016 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 malabsorption with proteinuria ICD-10: D51.1 ICD-9: 281.1 02/13/2016 Essential (primary) hypertension ICD-10: I10 ICD-9: 401.9 02/13/2016 Encounter for screening mammogram for malignant neoplasm of breast ICD-10: Z12.31 ICD-9: V76.12 02/03/2016 Dysuria ICD-10: R30.0 ICD-9: 788.1 12/10/2015 Encounter for immunization ICD-10: Z23 ICD-9: V03.89 12/02/2015 Headache ICD-10: R51 ICD-9: 784.0 08/15/2015 Unspecified osteoarthritis, unspecified site ICD-10: M19.90 ICD-9: 715.90 06/25/2015 Anxiety disorder, unspecified ICD-10: F41.9 ICD-9: 311 05/08/2015 Other myositis, multiple sites ICD-10: M60.89 ICD-9: 729.1 03/26/2015 Abrasion of knee, left ICD-9: 916.0 01/10 OSTEOARTH NOS-UNSPEC ICD-9: 715.90 2014 DEPRESSIVE DISORDER NEC ICD-9: 311 2014 CHRONIC PAIN SYNDROME ICD-9: 338.4 2014 MYALGIA AND MYOSITIS ICD-9: 729.1 2014 GENERALIZED ANXIETY DISEASE ICD-9: 300.02 12/21/2014 ESSENTIAL HYPERTENSION ICD-9: 401.9 10/05 Knee pain, right ICD-9: 719.46 2014 Ankle pain ICD-9: 719.47 06/14/2014 B12 deficiency ICD-9: 266.2 02/15/2014 Hemorrhoids ICD-9: 455.6 01/19/2014 Constipation ICD-9: 564.00 01/19/2014 Ulcer of knee ICD-9: 707.19 01/15/2014 ALLERGIC RHINITIS ICD-9: 477.9 2013 Open wound of knee ICD-9: 891.0 2013 EDEMA ICD-9: 782.3 10/20/2013 ANEMIA ICD-9: 285.9 10/20/2013 VACCIN FOR INFLUENZA ICD-9: V04.81 2012 UNSPECIFIED ASTHMA ICD-9: 493.90 2012 Encounter for tuberculin skin test ICD-9: V74.1 09/28/2012 PNEUMONIA (CAP) ICD-9: 486 07/21/2012 FEVER NOS ICD-9: 780.60 07/21/2012 MUSCLE/LIGAMENT DIS NEC ICD-9: 728.89 11/2012 Plantar fasciitis ICD-9: 728.71 2011 Right foot pain ICD-9: 729.5 05/26/2012 Chest wall pain ICD-9: 786.52 02/15/2012 Esophageal reflux ICD-9: 530.81 2011 HYPERLIPIDEMIA ICD-9: 272.4 01/13/2012 Costalchondritis ICD-9: 733.6 12/21/2011 Hypopotassemia ICD-9: 276.8 10/02/2011 Fall on same level from slipping, tripping, or stumbling ICD -9: E885.9 09/01/2011 Neck pain ICD-9: 723.1 09/01/2011 Pain in joint involving forearm ICD-9: 719.43 09/01/2011 Vulvovaginitis ICD-9: 616.10 08/03/2011 OVERWEIGHT ICD-9: 278.02 08/03/2011 Foul smelling urine ICD-9: 791.9 2011 Weight gain ICD-9: 783.1 06/29/2011 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 10/2010 Reason For Visit Reason For Visit Effective Dates Notes Hospital Follow Up 04/27/2017 ~generic 04/06/2017 growth around the anus pain, generalized 02/25/2017 pain, generalized 01/19/2017 pain, generalized 11/17/2016 pain, generalized 10/12/2016 foot pain 08/18/2016 vaginal bleeding 08/07/2016 foot pain 07/31/2016 neck pain 07/15/2016 neck pain 07/07/2016 neck pain 06/25/2016 neck pain 05/07/2016 chest pain/pressure 04/20/2016 gait abnormality 03/17/2016 gait abnormality 03/05/2016 hypertension 02/28/2016 neck pain 02/13/2016 neck pain 08/15/2015 headache 07/25/2015 foot pain 06/25/2015 ankle pain 06/10/2015 foot pain 05/08/2015 IN BOTH FEET foot pain 03/26/2015 IN BOTH FEET myalgias 03/15/2015 sores 01/10/2015 left knee headache 12/21/2014 anxiety 10/05/2014 ankle pain 06/14/2014 right with weakness vomiting 01/19/2014 knee pain 01/15/2014 left knee with scab area that is red around it knee pain 10/20/2013 skin lesion 07/24/2013 check to left knee lesion skin lesion 06/23/2013 skin lesion 06/12/2013 skin lesion 05/29/2013 skin lesion 05/23/2013 wound follow up 05/19/2013 Hospital Follow Up 05/16/2013 ER follow up from fall on left knee nasal allergies 03/06/2013 vaccination against influenza 02/20/2013 hypertension 12/26/2012 injuries from a fall knee pain 11/21/2012 fever 07/21/2012 foot pain 07/13/2012 foot pain 05/26/2012 vaccination against influenza 03/02/2012 new lesion 02/15/2012 sinus congestion 01/13/2012 knee pain 12/21/2011 right knee pain nasal allergies 10/02/2011 shoulder pain 09/01/2011 vaginal discharge 08/03/2011 states that she thinks she has a yeast infection wrist pain 06/29/2011 wrist pain 06/22/2011 ankle pain 06/11/2011 right ankle knee pain 03/11/2011 injuries from a fall (hurts after sitting "Burmese style" abdominal pain 02/12/2011 joint complaint 01/29/2011 Results Observation Observation Code Item Item Code Result Date Tsh Ord6 hTSH II 1.18 uIU/mL 10/12/2016 Comp Metabolic Jqk780 NA 139 mEq/L 10/12/2016 Comp Metabolic Igc851 K 3.5 mEq/L 10/12/2016 Comp Metabolic Tsf183 CL 102 mEq/L 10/12/2016 Comp Metabolic Ehu697 CO2 25.0 mEq/L 10/12/2016 Comp Metabolic Dmw594 ANION GAP 16 10/12/2016 Comp Metabolic Xid562 GLUCOSE 84 mg/dL 10/12/2016 Comp Metabolic Mtf517 Creat 0.6 mg/dL 10/12/2016 Comp Metabolic Zob234 eGFR 105 ml/min/1.73m2 10/12/2016 Comp Metabolic Yhi883 BUN 12 mg/dL 10/12/2016 Comp Metabolic Emn964 B/C Ratio 18.8 Ratio 10/12/2016 Comp Metabolic Gfz244 CALCIUM 9.2 mg/dL 10/12/2016 Comp Metabolic Zov131 ALK PHOS 59 U/L 10/12/2016 Comp Metabolic Rxn308 AST(SGOT) 21 U/L 10/12/2016 Comp Metabolic Ssb446 ALT(SGPT) 27 U/L 10/12/2016 Comp Metabolic Chy937 BILI T 0.2 mg/dL 10/12/2016 Comp Metabolic Lln398 ALBUMIN 4.4 g/dL 10/12/2016 Comp Metabolic Baw977 TPRO 6.7 g/dL 10/12/2016 Comp Metabolic Aky481 GLOB 2.3 g/dL 10/12/2016 Comp Metabolic Kil199 A/G Ratio 1.9 Ratio 10/12/2016 Comp Metabolic Zmi305 Osmo 276 mOsmo 10/12/2016 Cbc With Differential Ord2 WBC 9.77 K/ul 10/12/2016 Cbc With Differential Ord2 RBC 3.67 M/ul 10/12/2016 Cbc With Differential Ord2 HGB 12.0 g/dl 10/12/2016 Cbc With Differential Ord2 HCT 37.8 % 10/12/2016 Cbc With Differential Ord2 Neut% 58.9 % 10/12/2016 Cbc With Differential Ord2 Lymph% 31.9 % 10/12/2016 Cbc With Differential Ord2 MCV 103.0 fl 10/12/2016 Cbc With Differential Ord2 [place]% 8.0 % 10/12/2016 Cbc With Differential Ord2 MCH 32.7 pg 10/12/2016 Cbc With Differential Ord2 Eos% 1.0 % 10/12/2016 Cbc With Differential Ord2 MCHC 31.7 pg 10/12/2016 Cbc With Differential Ord2 PLT 238 K/ul 10/12/2016 Cbc With Differential Ord2 Baso% 0.2 % 10/12/2016 Cbc With Differential Ord2 RDW 13.2 % 10/12/2016 Cbc With Differential Ord2 Neut ABS# 5.75 K/ul 10/12/2016 Cbc With Differential Ord2 Lymph ABS# 3.12 K/ul 10/12/2016 Cbc With Differential Ord2 [place] ABS# 0.8 K/ul 10/12/2016 Cbc With Differential Ord2 Eos ABS# 0.1 K/ul 10/12/2016 Cbc With Differential Ord2 Baso ABS# 0.0 K/ul 10/12/2016 Lipid Ord30 CHOL 194 mg/dL 10/12/2016 Lipid Ord30 HDL 76.0 mg/dl 10/12/2016 Lipid Ord30 TRIG 159 mg/dL 10/12/2016 Lipid Ord30 LDL 86 mg/dL 10/12/2016 Lipid Ord30 C/HDL 2.6 Ratio 10/12/2016 Comp Metabolic Sqa364 NA 139 mEq/L 09/11/2016 Comp Metabolic Pmk990 K 3.6 mEq/L 09/11/2016 Comp Metabolic Uhm492 CL 102 mEq/L 09/11/2016 Comp Metabolic Kex473 CO2 26.0 mEq/L 09/11/2016 Comp Metabolic Los611 ANION GAP 15 09/11/2016 Comp Metabolic Cum730 GLUCOSE 90 mg/dL 09/11/2016 Comp Metabolic Uvf028 Creat 0.6 mg/dL 09/11/2016 Comp Metabolic Wkj444 eGFR 111 ml/min/1.73m2 09/11/2016 Comp Metabolic Jlh541 BUN 14 mg/dL 09/11/2016 Comp Metabolic Bzi015 B/C Ratio 23.0 Ratio 09/11/2016 Comp Metabolic Yga333 CALCIUM 9.0 mg/dL 09/11/2016 Comp Metabolic Wwf436 ALK PHOS 56 U/L 09/11/2016 Comp Metabolic Mrg242 AST(SGOT) 21 U/L 09/11/2016 Comp Metabolic Rck910 ALT(SGPT) 17 U/L 09/11/2016 Comp Metabolic Ofn467 BILI T 0.2 mg/dL 09/11/2016 Comp Metabolic Xge230 ALBUMIN 4.1 g/dL 09/11/2016 Comp Metabolic Ttp635 TPRO 6.5 g/dL 09/11/2016 Comp Metabolic Nbg297 GLOB 2.4 g/dL 09/11/2016 Comp Metabolic Xlg836 A/G Ratio 1.7 Ratio 09/11/2016 Comp Metabolic Jrc894 Osmo 278 mOsmo 09/11/2016 Tsh Ord6 hTSH II 1.73 uIU/mL 09/11/2016 Cbc With Differential Ord2 WBC 11.11 K/ul 09/11/2016 Cbc With Differential Ord2 RBC 3.51 M/ul 09/11/2016 Cbc With Differential Ord2 HGB 11.6 g/dl 09/11/2016 Cbc With Differential Ord2 Neut% 59.8 % 09/11/2016 Cbc With Differential Ord2 HCT 36.3 % 09/11/2016 Cbc With Differential Ord2 Lymph% 30.2 % 09/11/2016 Cbc With Differential Ord2 MCV 103.4 fl 09/11/2016 Cbc With Differential Ord2 MCH 33.0 pg 09/11/2016 Cbc With Differential Ord2 [place]% 8.6 % 09/11/2016 Cbc With Differential Ord2 MCHC 32.0 pg 09/11/2016 Cbc With Differential Ord2 Eos% 1.3 % 09/11/2016 Cbc With Differential Ord2 PLT 246 K/ul 09/11/2016 Cbc With Differential Ord2 Baso% 0.1 % 09/11/2016 Cbc With Differential Ord2 RDW 13.3 % 09/11/2016 Cbc With Differential Ord2 Neut ABS# 6.66 K/ul 09/11/2016 Cbc With Differential Ord2 Lymph ABS# 3.35 K/ul 09/11/2016 Cbc With Differential Ord2 [place] ABS# 1.0 K/ul 09/11/2016 Cbc With Differential Ord2 Eos ABS# 0.1 K/ul 09/11/2016 Cbc With Differential Ord2 Baso ABS# 0.0 K/ul 09/11/2016 Lipid Ord30 CHOL 168 mg/dL 09/11/2016 Lipid Ord30 HDL 74.0 mg/dl 09/11/2016 Lipid Ord30 TRIG 167 mg/dL 09/11/2016 Lipid Ord30 LDL 61 mg/dL 09/11/2016 Lipid Ord30 C/HDL 2.3 Ratio 09/11/2016 B12 Kzd646 B12 474.00 pg/ml 09/11/2016 B12 Zlm468 B12 827.00 pg/ml 03/02/2016 Cbc With Differential Ord2 WBC 5.51 K/ul 02/28/2016 Cbc With Differential Ord2 RBC 3.26 M/ul 02/28/2016 Cbc With Differential Ord2 HGB 11.1 g/dl 02/28/2016 Cbc With Differential Ord2 Neut% 54.9 % 02/28/2016 Cbc With Differential Ord2 HCT 35.3 % 02/28/2016 Cbc With Differential Ord2 Lymph% 37.7 % 02/28/2016 Cbc With Differential Ord2 MCV 108.3 fl 02/28/2016 Cbc With Differential Ord2 [place]% 5.4 % 02/28/2016 Cbc With Differential Ord2 MCH 34.0 pg 02/28/2016 Cbc With Differential Ord2 Eos% 1.8 % 02/28/2016 Cbc With Differential Ord2 MCHC 31.4 pg 02/28/2016 Cbc With Differential Ord2 PLT 198 K/ul 02/28/2016 Cbc With Differential Ord2 Baso% 0.2 % 02/28/2016 Cbc With Differential Ord2 RDW 12.7 % 02/28/2016 Cbc With Differential Ord2 Neut ABS# 3.02 K/ul 02/28/2016 Cbc With Differential Ord2 Lymph ABS# 2.08 K/ul 02/28/2016 Cbc With Differential Ord2 [place] ABS# 0.3 K/ul 02/28/2016 Cbc With Differential Ord2 Eos ABS# 0.1 K/ul 02/28/2016 Cbc With Differential Ord2 Baso ABS# 0.0 K/ul 02/28/2016 Sed Rate Ord21 ESR 5 mm/hr 02/28/2016 C-Reactive Protein Qnt Crqnt CRP 0.1 mg/dl 02/28/2016 Comp Metabolic Akv564 NA 136 mEq/L 02/28/2016 Comp Metabolic Bxd895 K 4.0 mEq/L 02/28/2016 Comp Metabolic Suy717 CL 103 mEq/L 02/28/2016 Comp Metabolic Yic003 CO2 27.0 mEq/L 02/28/2016 Comp Metabolic Psm278 ANION GAP 10 02/28/2016 Comp Metabolic Zjb854 GLUCOSE 138 mg/dL 02/28/2016 Comp Metabolic Vpw904 Creat 0.6 mg/dL 02/28/2016 Comp Metabolic Wfy605 eGFR 120 ml/min/1.73m2 02/28/2016 Comp Metabolic Ojn404 BUN 15 mg/dL 02/28/2016 Comp Metabolic Ahj741 B/C Ratio 26.3 Ratio 02/28/2016 Comp Metabolic Sip716 CALCIUM 8.8 mg/dL 02/28/2016 Comp Metabolic Yjb111 ALK PHOS 58 U/L 02/28/2016 Comp Metabolic Rej643 AST(SGOT) 21 U/L 02/28/2016 Comp Metabolic Opo521 ALT(SGPT) 21 U/L 02/28/2016 Comp Metabolic Bpt098 BILI T 0.2 mg/dL 02/28/2016 Comp Metabolic Jlg646 ALBUMIN 3.8 g/dL 02/28/2016 Comp Metabolic Xbl801 TPRO 5.7 g/dL 02/28/2016 Comp Metabolic Vwz883 GLOB 1.9 g/dL 02/28/2016 Comp Metabolic Dud690 A/G Ratio 2.0 Ratio 02/28/2016 Comp Metabolic Hka973 Osmo 275 mOsmo 02/28/2016 Tsh Ord6 hTSH II 1.25 uIU/mL 02/28/2016 B12 Jcm355 B12 >1500.00 pg/ml 01/11/2016 Vitamin D 25 Oh Lwo7384 VITAMIN D, 25 HYDROXY 45.94 ng/mL Comp Metabolic Frx265 NA 136 mEq/L 03/21/2015 Comp Metabolic Stx160 K 3.8 mEq/L 03/21/2015 Comp Metabolic Nml074 CL 101 mEq/L 03/21/2015 Comp Metabolic Auw634 CO2 31.0 mEq/L 03/21/2015 Comp Metabolic Zyg436 ANION GAP 8 03/21/2015 Comp Metabolic Scp561 GLUCOSE 101 mg/dL 03/21/2015 Comp Metabolic Zxc731 Creat 0.7 mg/dL 03/21/2015 Comp Metabolic Evr599 eGFR 94 ml/min/1.73m2 03/21/2015 Comp Metabolic Ztf366 BUN 13 mg/dL 03/21/2015 Comp Metabolic Iqe422 B/C Ratio 18.3 Ratio 03/21/2015 Comp Metabolic Aay917 CALCIUM 9.3 mg/dL 03/21/2015 Comp Metabolic Thw673 ALK PHOS 58 U/L 03/21/2015 Comp Metabolic Xbv128 AST(SGOT) 18 U/L 03/21/2015 Comp Metabolic Gkp384 ALT(SGPT) 22 U/L 03/21/2015 Comp Metabolic Tsk019 BILI T 0.3 mg/dL 03/21/2015 Comp Metabolic Moe754 ALBUMIN 4.4 g/dL 03/21/2015 Comp Metabolic Vyb353 TPRO 6.7 g/dL 03/21/2015 Comp Metabolic Zdg003 GLOB 2.3 g/dL 03/21/2015 Comp Metabolic Hsr404 A/G Ratio 1.9 Ratio 03/21/2015 Comp Metabolic Izg094 Osmo 272 mOsmo 03/21/2015 %Hba1C Zyr511 % HbA1c 52929-3 5.4 % 03/21/2015 %Hba1C Usl746 Gluc Ave 108 mg/dL 03/21/2015 Cbc With Differential Ord2 WBC 5.9 K/uL 03/21/2015 Cbc With Differential Ord2 LYM 2.6 K/uL 03/21/2015 Cbc With Differential Ord2 LYM% 44.7 % 03/21/2015 Cbc With Differential Ord2 NEUT/GRAN 3.0 K/uL 03/21/2015 Cbc With Differential Ord2 NEUT/GRAN % 51.1 % 03/21/2015 Cbc With Differential Ord2 MID 0.2 K/uL 03/21/2015 Cbc With Differential Ord2 MID% 4.2 % 03/21/2015 Cbc With Differential Ord2 RBC 3.77 M/uL 03/21/2015 Cbc With Differential Ord2 HGB 11.3 g/dL 03/21/2015 Cbc With Differential Ord2 HCT 36.8 % 03/21/2015 Cbc With Differential Ord2 MCV 98 fL 03/21/2015 Cbc With Differential Ord2 MCH 30 pg 03/21/2015 Cbc With Differential Ord2 MCHC 31 g/dL 03/21/2015 Cbc With Differential Ord2 PLT 216 K/uL 03/21/2015 Cbc With Differential Ord2 RDW 15.2 % 03/21/2015 Tsh Ord6 hTSH II 1.32 uIU/mL 03/21/2015 URINALYSIS NONAUTO W/O SCOPE 35938 Specific [place] 1.025 DateTime(Free Text in Aprima) URINALYSIS NONAUTO W/O SCOPE 86300 PH 5.0 DateTime(Free Text in Aprima) URINALYSIS NONAUTO W/O SCOPE 85401 GLUCOSE NEG DateTime( Free Text in Aprima) URINALYSIS NONAUTO W/O SCOPE 90934 Protein NEG DateTime( Free Text in Aprima) URINALYSIS NONAUTO W/O SCOPE 31385 Blood NEG DateTime(Free Text in Aprima) URINALYSIS NONAUTO W/O SCOPE 99199 Bilirubin NEG DateTime(Free Text in Aprima) URINALYSIS NONAUTO W/O SCOPE 76340 Ketones NEG DateTime( Free Text in Aprima) URINALYSIS NONAUTO W/O SCOPE 52441 Urobilinogen NEG DateTime(Free Text in Aprima) URINALYSIS NONAUTO W/O SCOPE 77199 Nitrite NEG DateTime( Free Text in Apr[employer]) URINALYSIS NONAUTO W/O SCOPE 34570 Leukocytes NEG DateTime(Free Text in Aprima) Review of Systems System Result Effective Dates Musculoskeletal arthralgia(s) 04/27/2017 Constitutional No recent illness 2016 Constitutional No anorexia 04/27/2017 Constitutional No night sweats 2016 Constitutional No chills 04/27/2017 Constitutional No diaphoresis 04/27/2017 Constitutional No fatigue 04/27/2017 Constitutional No fever 04/27/2017 Constitutional No insomnia 04/27/2017 Constitutional No malaise 04/27/2017 Constitutional No weight loss 04/27/2017 Constitutional No weight gain 04/27/2017 Ears/Nose/Throat/Neck dizziness 2016 Ears/Nose/Throat/Neck No headache 2016 Dermatologic laceration 04/27/2017 Eyes No eye erythema 04/27/2017 Eyes No eye discharge 04/27/2017 Eyes vision change 04/27/2017 Cardiovascular No chest pain/pressure Gastrointestinal No vomiting 04/27/2017 Gastrointestinal No nausea 04/27/2017 Genitourinary/Nephrology No dysuria 04/27 Respiratory No cough 04/27/2017 Neurologic No alteration of consciousness 04/27/2017 Musculoskeletal neck pain 04/27/2017 Constitutional No recent illness 2016 Constitutional No anorexia 04/06/2017 Constitutional No night sweats 2016 Constitutional No chills 04/06/2017 Constitutional No diaphoresis 04/06/2017 Constitutional fatigue 04/06/2017 Constitutional No fever 04/06/2017 Constitutional No insomnia 04/06/2017 Constitutional No malaise 04/06/2017 Constitutional No weight gain 04/06/2017 Constitutional No weight loss 04/06/2017 Gastrointestinal hemorrhoids 04/06/2017 Gastrointestinal constipation 04/06/2017 Gastrointestinal diarrhea 04/06/2017 Musculoskeletal joint complaint 2016 Musculoskeletal bone pain 02/25/2017 Musculoskeletal stiffness 02/25/2017 Musculoskeletal arthralgia(s) 02/25/2017 Constitutional No recent illness 2016 Constitutional No anorexia 02/25/2017 Constitutional No chills 02/25/2017 Constitutional No night sweats 2016 Constitutional No diaphoresis 02/25/2017 Constitutional fatigue 02/25/2017 Constitutional No fever 02/25/2017 Constitutional insomnia 02/25/2017 Constitutional No malaise 02/25/2017 Constitutional No weight loss 02/25/2017 Constitutional No weight gain 02/25/2017 Eyes No eye discharge 02/25/2017 Eyes No eye erythema 02/25/2017 Ears/Nose/Throat/Neck dizziness 2016 Ears/Nose/Throat/Neck nasal allergies Ears/Nose/Throat/Neck nasal discharge Cardiovascular No chest pain/pressure Respiratory dyspnea on exertion 2016 Gastrointestinal No abdominal pain 2016 Dermatologic No rash 02/25/2017 Constitutional No recent illness 2016 Constitutional No anorexia 01/19/2017 Constitutional No night sweats 2016 Constitutional No chills 01/19/2017 Constitutional No diaphoresis 01/19/2017 Constitutional fatigue 01/19/2017 Constitutional No fever 01/19/2017 Constitutional No insomnia 01/19/2017 Constitutional No malaise 01/19/2017 Eyes No eye discharge 01/19/2017 Eyes No eye erythema 01/19/2017 Ears/Nose/Throat/Neck No dizziness 2016 Cardiovascular No chest pain/pressure Respiratory No cough 01/19/2017 Gastrointestinal constipation 01/19/2017 Genitourinary/Nephrology No dysuria 01/19 Musculoskeletal back pain 01/19/2017 Musculoskeletal bone pain 01/19/2017 Musculoskeletal joint complaint 2016 Musculoskeletal neck pain 01/19/2017 Dermatologic No rash 01/19/2017 Neurologic No alteration of consciousness 01/19/2017 Psychiatric anxiety 01/19/2017 Psychiatric depression 01/19/2017 Constitutional No recent illness 2016 Constitutional No anorexia 11/17/2016 Constitutional No night sweats 2016 Constitutional No chills 11/17/2016 Constitutional No diaphoresis 11/17/2016 Constitutional fatigue 11/17/2016 Constitutional No fever 11/17/2016 Constitutional No insomnia 11/17/2016 Constitutional No malaise 11/17/2016 Eyes No eye discharge 11/17/2016 Eyes No eye erythema 11/17/2016 Ears/Nose/Throat/Neck No dizziness 2016 Cardiovascular No chest pain/pressure Respiratory No cough 11/17/2016 Gastrointestinal constipation 11/17/2016 Genitourinary/Nephrology No dysuria 11/17 Musculoskeletal back pain 11/17/2016 Musculoskeletal bone pain 11/17/2016 Musculoskeletal joint complaint 2016 Musculoskeletal neck pain 11/17/2016 Dermatologic No rash 11/17/2016 Neurologic No alteration of consciousness 11/17/2016 Psychiatric anxiety 11/17/2016 Psychiatric depression 11/17/2016 Constitutional No recent illness 2016 Constitutional No anorexia 10/12/2016 Constitutional No night sweats 2016 Constitutional No chills 10/12/2016 Constitutional No diaphoresis 10/12/2016 Constitutional fatigue 10/12/2016 Constitutional No fever 10/12/2016 Constitutional No insomnia 10/12/2016 Constitutional No malaise 10/12/2016 Musculoskeletal joint complaint 2016 Eyes No eye discharge 10/12/2016 Eyes No eye erythema 10/12/2016 Ears/Nose/Throat/Neck No dizziness 2016 Cardiovascular No chest pain/pressure 01/2017 Respiratory No cough 10/12/2016 Gastrointestinal constipation 10/12/2016 Genitourinary/Nephrology No dysuria 10/12 Musculoskeletal back pain 10/12/2016 Musculoskeletal bone pain 10/12/2016 Musculoskeletal neck pain 10/12/2016 Dermatologic No rash 10/12/2016 Neurologic No alteration of consciousness 10/12/2016 Psychiatric anxiety 10/12/2016 Psychiatric depression 10/12/2016 Constitutional No recent illness 2016 Constitutional No anorexia 08/18/2016 Constitutional No night sweats 2016 Constitutional No chills 08/18/2016 Constitutional No diaphoresis 08/18/2016 Constitutional No fatigue 08/18/2016 Constitutional No fever 08/18/2016 Constitutional No insomnia 08/18/2016 Constitutional No malaise 08/18/2016 Constitutional No weight loss 08/18/2016 Constitutional No weight gain 08/18/2016 Musculoskeletal joint complaint 2016 Constitutional No recent illness 2016 Constitutional No anorexia 08/07/2016 Constitutional No night sweats 2016 Constitutional No chills 08/07/2016 Constitutional No diaphoresis 08/07/2016 Constitutional fatigue 08/07/2016 Constitutional No fever 08/07/2016 Constitutional No insomnia 08/07/2016 Constitutional No malaise 08/07/2016 Constitutional No weight loss 08/07/2016 Constitutional weight gain 08/07/2016 Genitourinary/Nephrology vaginal discharge 08/07/2016 Constitutional No recent illness 2016 Constitutional No anorexia 07/31/2016 Constitutional No night sweats 2016 Constitutional No chills 07/31/2016 Constitutional No diaphoresis 07/31/2016 Constitutional No fatigue 07/31/2016 Constitutional No fever 07/31/2016 Constitutional No insomnia 07/31/2016 Constitutional No malaise 07/31/2016 Constitutional No weight loss 07/31/2016 Eyes No eye discharge 07/31/2016 Eyes No eye erythema 07/31/2016 Ears/Nose/Throat/Neck No dizziness 2016 Cardiovascular No chest pain/pressure Respiratory No cough 07/31/2016 Gastrointestinal constipation 07/31/2016 Genitourinary/Nephrology No dysuria 07/31 Musculoskeletal back pain 07/31/2016 Musculoskeletal neck pain 07/31/2016 Dermatologic No rash 07/31/2016 Neurologic No alteration of consciousness 07/31/2016 Psychiatric anxiety 07/31/2016 Psychiatric depression 07/31/2016 Musculoskeletal bone pain 07/31/2016 Constitutional No recent illness 2016 Constitutional No chills 07/15/2016 Constitutional No diaphoresis 07/15/2016 Constitutional No fatigue 07/15/2016 Constitutional No fever 07/15/2016 Eyes No eye discharge 07/15/2016 Eyes No eye erythema 07/15/2016 Ears/Nose/Throat/Neck No dizziness 2016 Cardiovascular No chest pain/pressure 01/2017 Respiratory No cough 07/15/2016 Gastrointestinal constipation 07/15/2016 Musculoskeletal back pain 07/15/2016 Musculoskeletal bone pain 07/15/2016 Musculoskeletal neck pain 07/15/2016 Dermatologic No rash 07/15/2016 Neurologic No alteration of consciousness 07/15/2016 Psychiatric anxiety 07/15/2016 Psychiatric depression 07/15/2016 Musculoskeletal back pain 07/07/2016 Musculoskeletal neck pain 07/07/2016 Constitutional No recent illness 2016 Constitutional No anorexia 07/07/2016 Constitutional No night sweats 2016 Constitutional No chills 07/07/2016 Constitutional No diaphoresis 07/07/2016 Constitutional No fatigue 07/07/2016 Constitutional No fever 07/07/2016 Constitutional No insomnia 07/07/2016 Constitutional No malaise 07/07/2016 Constitutional No weight loss 07/07/2016 Constitutional weight gain 07/07/2016 Eyes No eye erythema 07/07/2016 Eyes No eye discharge 07/07/2016 Neurologic No alteration of consciousness 07/07/2016 Gastrointestinal constipation 07/07/2016 Respiratory No cough 07/07/2016 Cardiovascular No chest pain/pressure Ears/Nose/Throat/Neck No dizziness 2016 Dermatologic No rash 07/07/2016 Genitourinary/Nephrology No dysuria 07/07 Psychiatric anxiety 07/07/2016 Psychiatric depression 07/07/2016 Constitutional No recent illness 2016 Constitutional No anorexia 06/25/2016 Constitutional No night sweats 2016 Constitutional No chills 06/25/2016 Constitutional No diaphoresis 06/25/2016 Constitutional No fatigue 06/25/2016 Constitutional No fever 06/25/2016 Constitutional No insomnia 06/25/2016 Constitutional No malaise 06/25/2016 Constitutional No weight loss 06/25/2016 Eyes No eye discharge 06/25/2016 Eyes No eye erythema 06/25/2016 Ears/Nose/Throat/Neck No dizziness 2016 Cardiovascular No chest pain/pressure Respiratory No cough 06/25/2016 Gastrointestinal constipation 06/25/2016 Genitourinary/Nephrology No dysuria 06/25 Musculoskeletal back pain 06/25/2016 Musculoskeletal bone pain 06/25/2016 Musculoskeletal neck pain 06/25/2016 Dermatologic No rash 06/25/2016 Neurologic No alteration of consciousness 06/25/2016 Psychiatric anxiety 06/25/2016 Psychiatric depression 06/25/2016 Constitutional No recent illness 2015 Constitutional No anorexia 05/07/2016 Constitutional No night sweats 2015 Constitutional No chills 05/07/2016 Constitutional No diaphoresis 05/07/2016 Constitutional No fatigue 05/07/2016 Constitutional No fever 05/07/2016 Constitutional insomnia 05/07/2016 Constitutional No malaise 05/07/2016 Constitutional No weight loss 05/07/2016 Constitutional No weight gain 05/07/2016 Constitutional No obesity 05/07/2016 Eyes No vision change 05/07/2016 Ears/Nose/Throat/Neck sore throat 2015 Ears/Nose/Throat/Neck sinus congestion Ears/Nose/Throat/Neck neck pain 2015 Ears/Nose/Throat/Neck headache 2015 Ears/Nose/Throat/Neck dizziness 2015 Cardiovascular exercise intolerance 05/07 Cardiovascular chest pain/pressure 2015 Cardiovascular dyspnea 05/07/2016 Respiratory No cough 05/07/2016 Respiratory No cigarette smoking 2015 Gastrointestinal abdominal pain 2015 Gastrointestinal diarrhea 05/07/2016 Gastrointestinal No constipation 2015 Genitourinary/Nephrology No anuria/oliguria 05/07/2016 Genitourinary/Nephrology No dysuria 05/07 Musculoskeletal stiffness 05/07/2016 Musculoskeletal swelling 05/07/2016 Musculoskeletal arthralgia(s) 05/07/2016 Dermatologic No rash 05/07/2016 Dermatologic No sores 05/07/2016 Neurologic dizziness 05/07/2016 Neurologic headache 05/07/2016 Psychiatric anxiety 05/07/2016 Psychiatric depression 05/07/2016 Hematologic/Lymphatic No abnormal ecchymoses 05/07/2016 Hematologic/Lymphatic No abnormal bleeding and bruising 05/07/2016 Musculoskeletal neck pain 05/07/2016 Constitutional No chills 04/20/2016 Constitutional No diaphoresis 04/20/2016 Constitutional fatigue 04/20/2016 Constitutional No fever 04/20/2016 Eyes No vision change 04/20/2016 Ears/Nose/Throat/Neck No nasal allergies 04/20/2016 Ears/Nose/Throat/Neck No nasal discharge 04/20/2016 Cardiovascular No chest pain/pressure Cardiovascular No dyspnea 04/20/2016 Respiratory No chest congestion 2015 Respiratory No cough 04/20/2016 Respiratory No dyspnea 04/20/2016 Musculoskeletal joint complaint 2015 Musculoskeletal myalgias 04/20/2016 Dermatologic No rash 04/20/2016 Neurologic No alteration of consciousness 04/20/2016 Psychiatric anxiety 04/20/2016 Psychiatric depression 04/20/2016 Constitutional No recent illness 2015 Constitutional No anorexia 04/20/2016 Constitutional No night sweats 2015 Musculoskeletal back pain 04/20/2016 Musculoskeletal neck pain 04/20/2016 Constitutional No chills 03/17/2016 Constitutional No diaphoresis 03/17/2016 Constitutional fatigue 03/17/2016 Constitutional No fever 03/17/2016 Eyes No vision change 03/17/2016 Ears/Nose/Throat/Neck No nasal allergies 03/17/2016 Ears/Nose/Throat/Neck No nasal discharge 03/17/2016 Cardiovascular No chest pain/pressure 04/2016 Cardiovascular No dyspnea 03/17/2016 Respiratory No chest congestion 2015 Respiratory No cough 03/17/2016 Respiratory No dyspnea 03/17/2016 Musculoskeletal back pain 03/17/2016 Musculoskeletal joint complaint 2015 Musculoskeletal myalgias 03/17/2016 Dermatologic No rash 03/17/2016 Neurologic No alteration of consciousness 03/17/2016 Psychiatric anxiety 03/17/2016 Psychiatric depression 03/17/2016 Musculoskeletal muscle weakness 2015 Gastrointestinal constipation 03/17/2016 Genitourinary/Nephrology No dysuria 03/17 Musculoskeletal neck pain 03/17/2016 Constitutional No chills 03/05/2016 Constitutional No diaphoresis 03/05/2016 Constitutional fatigue 03/05/2016 Eyes No vision change 03/05/2016 Ears/Nose/Throat/Neck No nasal allergies 03/05/2016 Ears/Nose/Throat/Neck No nasal discharge 03/05/2016 Cardiovascular No chest pain/pressure Respiratory No chest congestion 2015 Respiratory No cough 03/05/2016 Respiratory No dyspnea 03/05/2016 Musculoskeletal back pain 03/05/2016 Musculoskeletal joint complaint 2015 Musculoskeletal myalgias 03/05/2016 Dermatologic No rash 03/05/2016 Neurologic No alteration of consciousness 03/05/2016 Psychiatric anxiety 03/05/2016 Psychiatric depression 03/05/2016 Constitutional No fever 03/05/2016 Cardiovascular No dyspnea 03/05/2016 Musculoskeletal back pain 02/28/2016 Constitutional No recent illness 2015 Constitutional No anorexia 02/28/2016 Constitutional No night sweats 2015 Constitutional No chills 02/28/2016 Constitutional No diaphoresis 02/28/2016 Constitutional fatigue 02/28/2016 Constitutional No fever 02/28/2016 Constitutional No insomnia 02/28/2016 Constitutional No malaise 02/28/2016 Constitutional No weight loss 02/28/2016 Constitutional No weight gain 02/28/2016 Constitutional No obesity 02/28/2016 Eyes No vision change 02/28/2016 Ears/Nose/Throat/Neck No headache 2015 Ears/Nose/Throat/Neck No nasal allergies 02/28/2016 Ears/Nose/Throat/Neck No nasal discharge 02/28/2016 Ears/Nose/Throat/Neck No otalgia 2015 Ears/Nose/Throat/Neck No otitis media Ears/Nose/Throat/Neck No sinus congestion 02/28/2016 Ears/Nose/Throat/Neck No sore throat Cardiovascular No chest pain/pressure Respiratory No chest congestion 2015 Respiratory No chest tightness 2015 Respiratory No cigarette smoking 2015 Respiratory No cough 02/28/2016 Respiratory No dyspnea on exertion 2015 Respiratory No dyspnea 02/28/2016 Gastrointestinal constipation 02/28/2016 Gastrointestinal No diarrhea 02/28/2016 Genitourinary/Nephrology No dysuria 02/27 Musculoskeletal joint complaint 2015 Musculoskeletal myalgias 02/28/2016 Dermatologic No rash 02/28/2016 Dermatologic No sores 02/28/2016 Neurologic No alteration of consciousness 02/28/2016 Psychiatric anxiety 02/28/2016 Psychiatric depression 02/28/2016 Constitutional No recent illness 2015 Constitutional No anorexia 02/13/2016 Constitutional No night sweats 2015 Constitutional No chills 02/13/2016 Constitutional No diaphoresis 02/13/2016 Constitutional fatigue 02/13/2016 Constitutional No fever 02/13/2016 Constitutional No insomnia 02/13/2016 Constitutional No malaise 02/13/2016 Constitutional No weight loss 02/13/2016 Constitutional No weight gain 02/13/2016 Constitutional No obesity 02/13/2016 Eyes No vision change 02/13/2016 Ears/Nose/Throat/Neck No headache 2015 Ears/Nose/Throat/Neck No nasal allergies 02/13/2016 Ears/Nose/Throat/Neck No nasal discharge 02/13/2016 Ears/Nose/Throat/Neck No otalgia 2015 Ears/Nose/Throat/Neck No otitis media 01/2016 Ears/Nose/Throat/Neck No sinus congestion 02/13/2016 Ears/Nose/Throat/Neck No sore throat 01/2016 Cardiovascular No chest pain/pressure 01/2016 Respiratory No chest congestion 2015 Respiratory No chest tightness 2015 Respiratory No cigarette smoking 2015 Respiratory No cough 02/13/2016 Respiratory No dyspnea on exertion 2015 Respiratory No dyspnea 02/13/2016 Gastrointestinal constipation 02/13/2016 Gastrointestinal No diarrhea 02/13/2016 Genitourinary/Nephrology No dysuria 02/12 Musculoskeletal myalgias 02/13/2016 Dermatologic No rash 02/13/2016 Dermatologic No sores 02/13/2016 Psychiatric anxiety 02/13/2016 Psychiatric depression 02/13/2016 Musculoskeletal neck pain 02/13/2016 Musculoskeletal joint complaint 2015 Neurologic No alteration of consciousness 02/13/2016 Constitutional No recent illness 2015 Constitutional No anorexia 08/15/2015 Constitutional No night sweats 2015 Constitutional No chills 08/15/2015 Constitutional No diaphoresis 08/15/2015 Constitutional fatigue 08/15/2015 Constitutional No fever 08/15/2015 Constitutional No insomnia 08/15/2015 Constitutional No malaise 08/15/2015 Constitutional No weight loss 08/15/2015 Constitutional No weight gain 08/15/2015 Musculoskeletal joint complaint 2015 Musculoskeletal neck pain 08/15/2015 Musculoskeletal bone pain 08/15/2015 Dermatologic No rash 08/15/2015 Ears/Nose/Throat/Neck No dizziness 2015 Ears/Nose/Throat/Neck headache 2015 Eyes No eye erythema 08/15/2015 Eyes No eye discharge 08/15/2015 Neurologic No alteration of consciousness 08/15/2015 Neurologic headache 08/15/2015 Neurologic gait abnormality 08/15/2015 Constitutional No recent illness 2015 Constitutional No anorexia 07/25/2015 Constitutional No night sweats 2015 Constitutional No chills 07/25/2015 Constitutional No diaphoresis 07/25/2015 Constitutional No fatigue 07/25/2015 Constitutional No fever 07/25/2015 Constitutional No insomnia 07/25/2015 Constitutional No malaise 07/25/2015 Constitutional No weight loss 07/25/2015 Constitutional No weight gain 07/25/2015 Constitutional No obesity 07/25/2015 Musculoskeletal joint complaint 2015 Musculoskeletal No muscle weakness 2015 Musculoskeletal myalgias 07/25/2015 Gastrointestinal constipation 07/25/2015 Gastrointestinal No diarrhea 07/25/2015 Genitourinary/Nephrology No dysuria 07/25 Respiratory No chest tightness 2015 Respiratory No chest congestion 2015 Respiratory No cigarette smoking 2015 Respiratory No cough 07/25/2015 Respiratory No dyspnea 07/25/2015 Respiratory No dyspnea on exertion 2015 Cardiovascular No chest pain/pressure Ears/Nose/Throat/Neck No headache 2015 Ears/Nose/Throat/Neck No nasal allergies 07/25/2015 Ears/Nose/Throat/Neck No nasal discharge 07/25/2015 Ears/Nose/Throat/Neck No otitis media Ears/Nose/Throat/Neck No otalgia 2015 Ears/Nose/Throat/Neck No sore throat Ears/Nose/Throat/Neck No sinus congestion 07/25/2015 Eyes No vision change 07/25/2015 Dermatologic No sores 07/25/2015 Dermatologic No rash 07/25/2015 Psychiatric anxiety 07/25/2015 Psychiatric depression 07/25/2015 Constitutional No recent illness 2015 Constitutional No anorexia 06/25/2015 Constitutional No night sweats 2015 Constitutional No chills 06/25/2015 Constitutional No diaphoresis 06/25/2015 Constitutional No fatigue 06/25/2015 Constitutional No fever 06/25/2015 Constitutional No insomnia 06/25/2015 Constitutional No malaise 06/25/2015 Constitutional No weight loss 06/25/2015 Constitutional No weight gain 06/25/2015 Constitutional No obesity 06/25/2015 Eyes No vision change 06/25/2015 Ears/Nose/Throat/Neck No dizziness 2015 Ears/Nose/Throat/Neck No headache 2015 Ears/Nose/Throat/Neck No nasal allergies 06/25/2015 Ears/Nose/Throat/Neck No nasal discharge 06/25/2015 Ears/Nose/Throat/Neck No sore throat Ears/Nose/Throat/Neck No sinus congestion 06/25/2015 Ears/Nose/Throat/Neck No otitis media Ears/Nose/Throat/Neck No otalgia 2015 Cardiovascular No chest pain/pressure Respiratory No cough 06/25/2015 Respiratory No cigarette smoking 2015 Respiratory No chest tightness 2015 Respiratory No chest congestion 2015 Respiratory dyspnea on exertion 2015 Respiratory No dyspnea 06/25/2015 Musculoskeletal No back pain 06/25/2015 Musculoskeletal No bone pain 06/25/2015 Musculoskeletal joint complaint 2015 Musculoskeletal No neck pain 06/25/2015 Musculoskeletal myalgias 06/25/2015 Musculoskeletal muscle weakness 2015 Constitutional No recent illness 2015 Constitutional No anorexia 06/10/2015 Constitutional night sweats 06/10/2015 Constitutional No chills 06/10/2015 Constitutional No diaphoresis 06/10/2015 Constitutional fatigue 06/10/2015 Constitutional No fever 06/10/2015 Constitutional No insomnia 06/10/2015 Constitutional malaise 06/10/2015 Constitutional No weight loss 06/10/2015 Constitutional No weight gain 06/10/2015 Eyes No eye discharge 06/10/2015 Eyes No eye erythema 06/10/2015 Ears/Nose/Throat/Neck dizziness 2015 Ears/Nose/Throat/Neck No headache 2015 Cardiovascular No chest pain/pressure 09/2015 Respiratory No productive sputum 2015 Respiratory No cough 06/10/2015 Respiratory chest tightness 06/10/2015 Respiratory dyspnea on exertion 2015 Gastrointestinal No abdominal pain 2015 Gastrointestinal No constipation 2015 Gastrointestinal No diarrhea 06/10/2015 Genitourinary/Nephrology No dysuria 06/10 Musculoskeletal joint complaint 2015 Dermatologic No rash 06/10/2015 Neurologic No alteration of consciousness 06/10/2015 Psychiatric anxiety 06/10/2015 Psychiatric depression 06/10/2015 Constitutional No recent illness 2014 Constitutional No anorexia 05/08/2015 Constitutional No night sweats 2014 Constitutional No chills 05/08/2015 Constitutional No diaphoresis 05/08/2015 Constitutional fatigue 05/08/2015 Constitutional No fever 05/08/2015 Constitutional insomnia 05/08/2015 Eyes No eye discharge 05/08/2015 Eyes No eye erythema 05/08/2015 Ears/Nose/Throat/Neck No dizziness 2014 Ears/Nose/Throat/Neck headache 2014 Cardiovascular No chest pain/pressure 07/2014 Cardiovascular No dyspnea 05/08/2015 Respiratory No cough 05/08/2015 Gastrointestinal abdominal pain 2014 Gastrointestinal constipation 05/08/2015 Gastrointestinal diarrhea 05/08/2015 Genitourinary/Nephrology No dysuria 05/08 Musculoskeletal back pain 05/08/2015 Musculoskeletal joint complaint 2014 Musculoskeletal myalgias 05/08/2015 Dermatologic No rash 05/08/2015 Neurologic No alteration of consciousness 05/08/2015 Psychiatric anxiety 05/08/2015 Psychiatric depression 05/08/2015 Endocrine No dry or coarse skin 2014 Psychiatric disturbances of emotion 05/08 Constitutional No recent illness 2014 Constitutional No anorexia 03/26/2015 Constitutional No night sweats 2014 Constitutional No chills 03/26/2015 Constitutional No diaphoresis 03/26/2015 Constitutional fatigue 03/26/2015 Constitutional No fever 03/26/2015 Constitutional insomnia 03/26/2015 Eyes No eye discharge 03/26/2015 Eyes No eye erythema 03/26/2015 Ears/Nose/Throat/Neck No dizziness 2014 Cardiovascular No chest pain/pressure Cardiovascular No dyspnea 03/26/2015 Respiratory No chest congestion 2014 Respiratory No cough 03/26/2015 Gastrointestinal constipation 03/26/2015 Gastrointestinal diarrhea 03/26/2015 Genitourinary/Nephrology No dysuria 03/26 Musculoskeletal back pain 03/26/2015 Musculoskeletal joint complaint 2014 Musculoskeletal myalgias 03/26/2015 Dermatologic No rash 03/26/2015 Neurologic No alteration of consciousness 03/26/2015 Psychiatric anxiety 03/26/2015 Psychiatric depression 03/26/2015 Endocrine No dry or coarse skin 2014 Constitutional No malaise 03/26/2015 Constitutional No weight loss 03/26/2015 Constitutional No weight gain 03/26/2015 Constitutional No obesity 03/26/2015 Eyes No vision change 03/26/2015 Ears/Nose/Throat/Neck No otitis media Ears/Nose/Throat/Neck No otorrhea 2014 Ears/Nose/Throat/Neck No otalgia 2014 Gastrointestinal abdominal pain 2014 Constitutional No recent illness 2014 Constitutional No anorexia 03/15/2015 Constitutional No night sweats 2014 Constitutional No chills 03/15/2015 Constitutional No diaphoresis 03/15/2015 Constitutional fatigue 03/15/2015 Constitutional No fever 03/15/2015 Constitutional insomnia 03/15/2015 Eyes No eye discharge 03/15/2015 Eyes No eye erythema 03/15/2015 Ears/Nose/Throat/Neck No dizziness 2014 Cardiovascular No chest pain/pressure 02/2015 Cardiovascular No dyspnea 03/15/2015 Respiratory No cough 03/15/2015 Gastrointestinal abdominal pain 2014 Gastrointestinal constipation 03/15/2015 Gastrointestinal diarrhea 03/15/2015 Genitourinary/Nephrology No dysuria 03/15 Musculoskeletal back pain 03/15/2015 Musculoskeletal joint complaint 2014 Musculoskeletal myalgias 03/15/2015 Dermatologic No rash 03/15/2015 Neurologic No alteration of consciousness 03/15/2015 Psychiatric anxiety 03/15/2015 Psychiatric depression 03/15/2015 Endocrine No dry or coarse skin 2014 Respiratory No chest congestion 2014 Constitutional No recent illness 2014 Constitutional No anorexia 01/10/2015 Constitutional fatigue 01/10/2015 Constitutional No fever 01/10/2015 Constitutional No night sweats 2014 Constitutional No diaphoresis 01/10/2015 Constitutional No chills 01/10/2015 Constitutional No insomnia 01/10/2015 Constitutional No malaise 01/10/2015 Constitutional No weight loss 01/10/2015 Constitutional No weight gain 01/10/2015 Gastrointestinal No vomiting 01/10/2015 Musculoskeletal joint complaint 2014 Musculoskeletal myalgias 01/10/2015 Dermatologic No rash 01/10/2015 Dermatologic sores 01/10/2015 Musculoskeletal joint complaint 2014 Musculoskeletal myalgias 12/21/2014 Musculoskeletal back pain 12/21/2014 Constitutional No recent illness 2014 Constitutional No anorexia 12/21/2014 Constitutional No night sweats 2014 Constitutional No chills 12/21/2014 Constitutional No diaphoresis 12/21/2014 Constitutional fatigue 12/21/2014 Constitutional No fever 12/21/2014 Constitutional insomnia 12/21/2014 Eyes No eye erythema 12/21/2014 Eyes No eye discharge 12/21/2014 Ears/Nose/Throat/Neck No dizziness 2014 Ears/Nose/Throat/Neck headache 2014 Cardiovascular No chest pain/pressure Cardiovascular No dyspnea 12/21/2014 Respiratory No cough 12/21/2014 Gastrointestinal constipation 12/21/2014 Gastrointestinal diarrhea 12/21/2014 Gastrointestinal abdominal pain 2014 Genitourinary/Nephrology No dysuria 12/21 Dermatologic No rash 12/21/2014 Neurologic No alteration of consciousness 12/21/2014 Psychiatric anxiety 12/21/2014 Psychiatric depression 12/21/2014 Endocrine No dry or coarse skin 2014 Psychiatric anxiety 10/05/2014 Psychiatric depression 10/05/2014 Constitutional No recent illness 2014 Constitutional No anorexia 10/05/2014 Constitutional No night sweats 2014 Constitutional No chills 10/05/2014 Constitutional No diaphoresis 10/05/2014 Constitutional fatigue 10/05/2014 Constitutional No fever 10/05/2014 Constitutional No insomnia 10/05/2014 Constitutional No malaise 10/05/2014 Constitutional No weight loss 10/05/2014 Constitutional No weight gain 10/05/2014 Gastrointestinal abdominal pain 2014 Gastrointestinal No anorexia 10/05/2014 Gastrointestinal constipation 10/05/2014 Gastrointestinal diarrhea 10/05/2014 Dermatologic rash 10/05/2014 Musculoskeletal joint complaint 2014 Neurologic No alteration of consciousness 10/05/2014 Eyes No eye discharge 10/05/2014 Ears/Nose/Throat/Neck nasal allergies 06/2014 Ears/Nose/Throat/Neck nasal discharge 06/2014 Constitutional No recent illness 2014 Constitutional No anorexia 06/14/2014 Constitutional fatigue 06/14/2014 Constitutional No fever 06/14/2014 Musculoskeletal joint complaint 2014 Dermatologic No rash 06/14/2014 Genitourinary/Nephrology No dysuria 06/14 Gastrointestinal No abdominal pain 2014 Eyes No eye discharge 06/14/2014 Eyes No eye erythema 06/14/2014 Ears/Nose/Throat/Neck No headache 2014 Gastrointestinal constipation 06/14/2014 Gastrointestinal No diarrhea 06/14/2014 Gastrointestinal No vomiting 06/14/2014 Gastrointestinal No nausea 06/14/2014 Constitutional recent illness 01/19/2014 Constitutional No anorexia 01/19/2014 Constitutional No night sweats 2013 Constitutional No chills 01/19/2014 Constitutional No diaphoresis 01/19/2014 Constitutional fatigue 01/19/2014 Constitutional No fever 01/19/2014 Constitutional No insomnia 01/19/2014 Gastrointestinal No abdominal pain 2013 Gastrointestinal constipation 01/19/2014 Gastrointestinal No diarrhea 01/19/2014 Gastrointestinal nausea 01/19/2014 Gastrointestinal vomiting 01/19/2014 Genitourinary/Nephrology No dysuria 01/19 Musculoskeletal joint complaint 2013 Respiratory No aspiration 01/19/2014 Respiratory No chest congestion 2013 Cardiovascular No chest pain/pressure Ears/Nose/Throat/Neck No nasal discharge 01/19/2014 Eyes No eye discharge 01/19/2014 Eyes No eye erythema 01/19/2014 Dermatologic No rash 01/19/2014 Neurologic No alteration of consciousness 01/19/2014 Constitutional No recent illness 2013 Constitutional No anorexia 01/15/2014 Constitutional No night sweats 2013 Constitutional No chills 01/15/2014 Constitutional No diaphoresis 01/15/2014 Constitutional fatigue 01/15/2014 Constitutional No fever 01/15/2014 Constitutional No insomnia 01/15/2014 Constitutional No malaise 01/15/2014 Constitutional weight loss 01/15/2014 Constitutional No weight gain 01/15/2014 Eyes No eye discharge 01/15/2014 Eyes No eye erythema 01/15/2014 Ears/Nose/Throat/Neck No dizziness 2013 Ears/Nose/Throat/Neck nasal allergies 04/2014 Ears/Nose/Throat/Neck nasal discharge 04/2014 Ears/Nose/Throat/Neck No otalgia 2013 Ears/Nose/Throat/Neck sinus congestion Cardiovascular No chest pain/pressure 04/2014 Gastrointestinal constipation 01/15/2014 Gastrointestinal No diarrhea 01/15/2014 Gastrointestinal No nausea 01/15/2014 Gastrointestinal No vomiting 01/15/2014 Gastrointestinal hemorrhoids 01/15/2014 Genitourinary/Nephrology No dysuria 01/15 Neurologic No alteration of consciousness 01/15/2014 Constitutional No recent illness 2013 Constitutional No anorexia 10/20/2013 Constitutional No night sweats 2013 Constitutional No chills 10/20/2013 Constitutional No diaphoresis 10/20/2013 Constitutional fatigue 10/20/2013 Constitutional No fever 10/20/2013 Constitutional No insomnia 10/20/2013 Eyes No eye discharge 10/20/2013 Eyes No eye erythema 10/20/2013 Ears/Nose/Throat/Neck nasal allergies Ears/Nose/Throat/Neck nasal discharge Ears/Nose/Throat/Neck No dizziness 2013 Ears/Nose/Throat/Neck No otalgia 2013 Ears/Nose/Throat/Neck sinus congestion Ears/Nose/Throat/Neck sore throat 2013 Cardiovascular No chest pain/pressure Cardiovascular edema 10/20/2013 Respiratory No productive sputum 2013 Respiratory No chest congestion 2013 Respiratory No cough 10/20/2013 Gastrointestinal No abdominal pain 2013 Genitourinary/Nephrology No dysuria 10/20 Dermatologic No rash 10/20/2013 Dermatologic sores 10/20/2013 Neurologic No alteration of consciousness 10/20/2013 Neurologic No dizziness 10/20/2013 Psychiatric anxiety 10/20/2013 Psychiatric depression 10/20/2013 Constitutional No recent illness 2013 Constitutional No anorexia 07/24/2013 Constitutional No night sweats 2013 Constitutional No chills 07/24/2013 Constitutional No diaphoresis 07/24/2013 Constitutional No fever 07/24/2013 Constitutional No insomnia 07/24/2013 Constitutional No fatigue 07/24/2013 Constitutional No malaise 07/24/2013 Constitutional No recent illness 2013 Constitutional No anorexia 06/23/2013 Constitutional No night sweats 2013 Constitutional No chills 06/23/2013 Constitutional No diaphoresis 06/23/2013 Constitutional No fatigue 06/23/2013 Constitutional No fever 06/23/2013 Constitutional No insomnia 06/23/2013 Constitutional No malaise 06/23/2013 Constitutional No recent illness 2013 Constitutional No anorexia 06/12/2013 Constitutional No night sweats 2013 Constitutional No chills 06/12/2013 Constitutional No diaphoresis 06/12/2013 Constitutional No fatigue 06/12/2013 Constitutional No fever 06/12/2013 Constitutional No insomnia 06/12/2013 Constitutional No malaise 06/12/2013 Musculoskeletal No joint complaint 2013 Constitutional No recent illness 2012 Constitutional No anorexia 05/29/2013 Constitutional No night sweats 2012 Constitutional No chills 05/29/2013 Constitutional No diaphoresis 05/29/2013 Constitutional No fatigue 05/29/2013 Constitutional No fever 05/29/2013 Constitutional No insomnia 05/29/2013 Constitutional No malaise 05/29/2013 Constitutional No recent illness 2012 Constitutional No anorexia 05/23/2013 Constitutional No night sweats 2012 Constitutional No chills 05/23/2013 Constitutional No diaphoresis 05/23/2013 Constitutional No fatigue 05/23/2013 Constitutional No fever 05/23/2013 Constitutional No insomnia 05/23/2013 Constitutional No malaise 05/23/2013 Constitutional No recent illness 2012 Constitutional No recent illness 2012 Constitutional No anorexia 05/16/2013 Constitutional No night sweats 2012 Constitutional No chills 05/16/2013 Constitutional No diaphoresis 05/16/2013 Constitutional No fever 05/16/2013 Constitutional fatigue 05/16/2013 Constitutional No insomnia 05/16/2013 Constitutional No recent illness 2012 Constitutional No anorexia 03/06/2013 Constitutional No chills 03/06/2013 Constitutional No diaphoresis 03/06/2013 Constitutional fatigue 03/06/2013 Constitutional No fever 03/06/2013 Constitutional No night sweats 2012 Eyes No eye discharge 03/06/2013 Eyes No eye erythema 03/06/2013 Respiratory No productive sputum 2012 Respiratory No chest congestion 2012 Respiratory cough 03/06/2013 Gastrointestinal No nausea 03/06/2013 Gastrointestinal No vomiting 03/06/2013 Genitourinary/Nephrology No dysuria 03/06 Dermatologic No sores 03/06/2013 Dermatologic No rash 03/06/2013 Constitutional No night sweats 2012 Constitutional No chills 12/26/2012 Constitutional No fever 12/26/2012 Constitutional weight gain 12/26/2012 Eyes No vision change 12/26/2012 Ears/Nose/Throat/Neck No dizziness 2012 Ears/Nose/Throat/Neck No facial pain Ears/Nose/Throat/Neck No headache 2012 Cardiovascular No chest pain/pressure Cardiovascular dyspnea 12/26/2012 Cardiovascular No edema 12/26/2012 Cardiovascular exercise intolerance 12/26 Cardiovascular fatigue 12/26/2012 Gastrointestinal constipation 12/26/2012 Gastrointestinal No diarrhea 12/26/2012 Gastrointestinal No dyspepsia 12/26/2012 Gastrointestinal No gas and bloating Genitourinary/Nephrology No urinary urgency 12/26/2012 Genitourinary/Nephrology No urinary frequency 12/26/2012 Dermatologic No rash 12/26/2012 Dermatologic No sores 12/26/2012 Neurologic No alteration of consciousness 12/26/2012 Neurologic No ataxia 12/26/2012 Neurologic No dizziness 12/26/2012 Neurologic gait abnormality 12/26/2012 Psychiatric anxiety 12/26/2012 Psychiatric depression 12/26/2012 Respiratory chest tightness 12/26/2012 Respiratory No dyspnea on exertion 2012 Gastrointestinal No abdominal pain 2012 Constitutional No recent illness 2012 Constitutional No anorexia 12/26/2012 Constitutional No diaphoresis 12/26/2012 Eyes No eye discharge 12/26/2012 Eyes No eye erythema 12/26/2012 Ears/Nose/Throat/Neck nasal allergies Ears/Nose/Throat/Neck No sore throat Ears/Nose/Throat/Neck No otalgia 2012 Ears/Nose/Throat/Neck No sinus congestion 12/26/2012 Respiratory No productive sputum 2012 Respiratory No chest congestion 2012 Respiratory No cough 12/26/2012 Psychiatric No suicidality 12/26/2012 Constitutional No recent illness 2012 Constitutional No anorexia 11/21/2012 Constitutional No night sweats 2012 Constitutional No chills 11/21/2012 Constitutional No diaphoresis 11/21/2012 Constitutional No fatigue 11/21/2012 Constitutional No fever 11/21/2012 Eyes No eye discharge 11/21/2012 Eyes No eye erythema 11/21/2012 Ears/Nose/Throat/Neck No dizziness 2012 Ears/Nose/Throat/Neck nasal allergies Ears/Nose/Throat/Neck nasal discharge Ears/Nose/Throat/Neck No otalgia 2012 Ears/Nose/Throat/Neck No sinus congestion 11/21/2012 Ears/Nose/Throat/Neck No sore throat Cardiovascular No chest pain/pressure Respiratory No productive sputum 2012 Respiratory No chest congestion 2012 Respiratory No cough 11/21/2012 Gastrointestinal No abdominal pain 2012 Gastrointestinal No diarrhea 11/21/2012 Dermatologic No rash 11/21/2012 Psychiatric anxiety 11/21/2012 Psychiatric depression 11/21/2012 Psychiatric No suicidality 11/21/2012 Constitutional recent illness 07/21/2012 Constitutional fever 07/21/2012 Constitutional diaphoresis 07/21/2012 Constitutional chills 07/21/2012 Constitutional night sweats 07/21/2012 Constitutional fatigue 07/21/2012 Eyes No eye discharge 07/21/2012 Eyes No eye erythema 07/21/2012 Ears/Nose/Throat/Neck dizziness 2012 Ears/Nose/Throat/Neck headache 2012 Ears/Nose/Throat/Neck nasal discharge Ears/Nose/Throat/Neck sore throat 2012 Ears/Nose/Throat/Neck otalgia 07/21/2012 Cardiovascular No chest pain/pressure Respiratory No productive sputum 2012 Gastrointestinal No abdominal pain 2012 Gastrointestinal No constipation 2012 Gastrointestinal No diarrhea 07/21/2012 Gastrointestinal nausea 07/21/2012 Gastrointestinal No vomiting 07/21/2012 Genitourinary/Nephrology No dysuria 07/21 Musculoskeletal myalgias 07/21/2012 Dermatologic No sores 07/21/2012 Dermatologic No rash 07/21/2012 Respiratory cough 07/21/2012 Respiratory dyspnea on exertion 2012 Constitutional No recent illness 2012 Constitutional No anorexia 07/13/2012 Constitutional No night sweats 2012 Constitutional No chills 07/13/2012 Constitutional No diaphoresis 07/13/2012 Constitutional No fever 07/13/2012 Constitutional No insomnia 07/13/2012 Ears/Nose/Throat/Neck No dizziness 2012 Cardiovascular No chest pain/pressure 11/2012 Respiratory No chest congestion 2012 Respiratory No cough 07/13/2012 Gastrointestinal No constipation 2012 Gastrointestinal No diarrhea 07/13/2012 Gastrointestinal No nausea 07/13/2012 Gastrointestinal No vomiting 07/13/2012 Dermatologic No rash 07/13/2012 Dermatologic No sores 07/13/2012 Constitutional No recent illness 2011 Constitutional No anorexia 05/26/2012 Constitutional No night sweats 2011 Constitutional No chills 05/26/2012 Constitutional No diaphoresis 05/26/2012 Constitutional No fever 05/26/2012 Constitutional No insomnia 05/26/2012 Cardiovascular No chest pain/pressure Respiratory No chest congestion 2011 Respiratory No cough 05/26/2012 Gastrointestinal No vomiting 05/26/2012 Gastrointestinal No nausea 05/26/2012 Gastrointestinal No diarrhea 05/26/2012 Gastrointestinal No constipation 2011 Ears/Nose/Throat/Neck No dizziness 2011 Dermatologic No rash 05/26/2012 Dermatologic No sores 05/26/2012 Constitutional No recent illness 2011 Constitutional No anorexia 02/15/2012 Constitutional No night sweats 2011 Constitutional No chills 02/15/2012 Constitutional No diaphoresis 02/15/2012 Constitutional No fatigue 02/15/2012 Constitutional No fever 02/15/2012 Constitutional No insomnia 02/15/2012 Constitutional No malaise 02/15/2012 Constitutional No weight loss 02/15/2012 Constitutional No weight gain 02/15/2012 Eyes No eye discharge 02/15/2012 Eyes No eye erythema 02/15/2012 Cardiovascular No chest pain/pressure 03/2012 Cardiovascular No edema 02/15/2012 Ears/Nose/Throat/Neck No dizziness 2011 Ears/Nose/Throat/Neck No headache 2011 Ears/Nose/Throat/Neck nasal allergies 03/2012 Genitourinary/Nephrology No dysuria 02/14 Constitutional No recent illness 2011 Constitutional No anorexia 01/13/2012 Constitutional No night sweats 2011 Constitutional No chills 01/13/2012 Constitutional No diaphoresis 01/13/2012 Constitutional No fatigue 01/13/2012 Constitutional No fever 01/13/2012 Constitutional No insomnia 01/13/2012 Constitutional No malaise 01/13/2012 Constitutional No weight loss 01/13/2012 Constitutional No weight gain 01/13/2012 Eyes No eye discharge 01/13/2012 Eyes No eye erythema 01/13/2012 Cardiovascular No chest pain/pressure 01/2012 Respiratory No productive sputum 2011 Respiratory No cough 01/13/2012 Respiratory dyspnea on exertion 2011 Gastrointestinal No vomiting 01/13/2012 Gastrointestinal No nausea 01/13/2012 Gastrointestinal No abdominal pain 2011 Genitourinary/Nephrology No dysuria 01/12 Dermatologic No rash 01/13/2012 Dermatologic No sores 01/13/2012 Constitutional No recent illness 2011 Constitutional No anorexia 12/21/2011 Constitutional No night sweats 2011 Constitutional No chills 12/21/2011 Constitutional No diaphoresis 12/21/2011 Constitutional No fatigue 12/21/2011 Constitutional No fever 12/21/2011 Eyes No eye discharge 12/21/2011 Eyes No eye erythema 12/21/2011 Ears/Nose/Throat/Neck No dizziness 2011 Ears/Nose/Throat/Neck nasal allergies Ears/Nose/Throat/Neck nasal discharge Ears/Nose/Throat/Neck No otalgia 2011 Ears/Nose/Throat/Neck No sinus congestion 12/21/2011 Ears/Nose/Throat/Neck No sore throat Cardiovascular No chest pain/pressure Gastrointestinal No abdominal pain 2011 Gastrointestinal No diarrhea 12/21/2011 Dermatologic No rash 12/21/2011 Psychiatric anxiety 12/21/2011 Psychiatric depression 12/21/2011 Psychiatric No suicidality 12/21/2011 Neurologic No dizziness 12/21/2011 Constitutional No recent illness 2011 Constitutional No anorexia 10/02/2011 Constitutional No night sweats 2011 Constitutional No chills 10/02/2011 Constitutional No diaphoresis 10/02/2011 Constitutional No fatigue 10/02/2011 Constitutional No fever 10/02/2011 Eyes No eye discharge 10/02/2011 Eyes No eye erythema 10/02/2011 Ears/Nose/Throat/Neck No dizziness 2011 Ears/Nose/Throat/Neck nasal allergies Ears/Nose/Throat/Neck nasal discharge Ears/Nose/Throat/Neck No otalgia 2011 Ears/Nose/Throat/Neck No sore throat Ears/Nose/Throat/Neck No sinus congestion 10/02/2011 Cardiovascular No chest pain/pressure Respiratory No productive sputum 2011 Respiratory No chest congestion 2011 Respiratory No cough 10/02/2011 Gastrointestinal No abdominal pain 2011 Gastrointestinal No diarrhea 10/02/2011 Musculoskeletal stiffness 10/02/2011 Musculoskeletal No bone fracture 2011 Dermatologic No rash 10/02/2011 Psychiatric No suicidality 10/02/2011 Psychiatric anxiety 10/02/2011 Psychiatric depression 10/02/2011 Neurologic No syncope 09/01/2011 Neurologic No vision change 09/01/2011 Neurologic No vertigo 09/01/2011 Constitutional No recent illness 2011 Constitutional No anorexia 09/01/2011 Constitutional No chills 09/01/2011 Constitutional No night sweats 2011 Constitutional No diaphoresis 09/01/2011 Constitutional No fatigue 09/01/2011 Constitutional No fever 09/01/2011 Eyes No eye discharge 09/01/2011 Eyes No eye erythema 09/01/2011 Ears/Nose/Throat/Neck No dizziness 2011 Ears/Nose/Throat/Neck No headache 2011 Ears/Nose/Throat/Neck No nasal allergies 09/01/2011 Ears/Nose/Throat/Neck No nasal discharge 09/01/2011 Ears/Nose/Throat/Neck No neck swelling Ears/Nose/Throat/Neck neck pain 2011 Ears/Nose/Throat/Neck No otitis media Cardiovascular No chest pain/pressure Respiratory No productive sputum 2011 Respiratory No chest congestion 2011 Respiratory No cough 09/01/2011 Gastrointestinal No abdominal pain 2011 Musculoskeletal stiffness 09/01/2011 Musculoskeletal swelling 09/01/2011 Musculoskeletal No bone fracture 2011 Musculoskeletal bone pain 09/01/2011 Neurologic No alteration of consciousness 09/01/2011 Constitutional No fever 08/03/2011 Constitutional night sweats 08/03/2011 Constitutional No chills 08/03/2011 Eyes No vision change 08/03/2011 Ears/Nose/Throat/Neck sinus congestion Respiratory No apneic events 08/03/2011 Gastrointestinal constipation 08/03/2011 Genitourinary/Nephrology flank pain 08/03 Genitourinary/Nephrology No hematuria Genitourinary/Nephrology No menstrual irregularity 08/03/2011 Genitourinary/Nephrology No nocturia Genitourinary/Nephrology urinary frequency 08/03/2011 Genitourinary/Nephrology urinary incontinence 08/03/2011 Genitourinary/Nephrology vaginal discharge 08/03/2011 Musculoskeletal stiffness 08/03/2011 Musculoskeletal swelling 08/03/2011 Musculoskeletal back pain 08/03/2011 Dermatologic No rash 08/03/2011 Dermatologic No sores 08/03/2011 Neurologic gait abnormality 08/03/2011 Psychiatric anxiety 08/03/2011 Psychiatric depression 08/03/2011 Constitutional No chills 06/29/2011 Constitutional fatigue 06/29/2011 Constitutional No fever 06/29/2011 Constitutional No insomnia 06/29/2011 Eyes No eye discharge 06/29/2011 Eyes No eye erythema 06/29/2011 Ears/Nose/Throat/Neck No dizziness 2011 Ears/Nose/Throat/Neck No nasal discharge 06/29/2011 Cardiovascular No chest pain/pressure Cardiovascular No dyspnea 06/29/2011 Respiratory No productive sputum 2011 Respiratory No cough 06/29/2011 Respiratory No dyspnea 06/29/2011 Gastrointestinal No abdominal pain 2011 Gastrointestinal No gas and bloating Gastrointestinal No nausea 06/29/2011 Gastrointestinal No vomiting 06/29/2011 Genitourinary/Nephrology No dysuria 06/29 Neurologic No alteration of consciousness 06/29/2011 Neurologic No paresthesia 06/29/2011 Neurologic No syncope 06/29/2011 Neurologic No vertigo 06/29/2011 Psychiatric anxiety 06/29/2011 Psychiatric depression 06/29/2011 Constitutional fatigue 06/22/2011 Constitutional No chills 06/22/2011 Constitutional No fever 06/22/2011 Cardiovascular No chest pain/pressure Cardiovascular No dyspnea 06/22/2011 Respiratory No cough 06/22/2011 Gastrointestinal No abdominal pain 2011 Musculoskeletal arthralgia(s) 06/22/2011 Musculoskeletal muscle weakness 2011 Psychiatric anxiety 06/22/2011 Psychiatric depression 06/22/2011 Constitutional No insomnia 06/22/2011 Eyes No eye discharge 06/22/2011 Eyes No eye erythema 06/22/2011 Ears/Nose/Throat/Neck No dizziness 2011 Ears/Nose/Throat/Neck No nasal discharge 06/22/2011 Respiratory No productive sputum 2011 Respiratory No dyspnea 06/22/2011 Gastrointestinal No nausea 06/22/2011 Gastrointestinal No vomiting 06/22/2011 Gastrointestinal No gas and bloating Genitourinary/Nephrology No dysuria 06/22 Musculoskeletal joint complaint 2011 Neurologic No alteration of consciousness 06/22/2011 Neurologic No vertigo 06/22/2011 Neurologic No syncope 06/22/2011 Neurologic No paresthesia 06/22/2011 Gastrointestinal No constipation 2011 Gastrointestinal No diarrhea 06/11/2011 Dermatologic No rash 06/11/2011 Dermatologic No sores 06/11/2011 Neurologic No dizziness 06/11/2011 Constitutional No night sweats 2011 Constitutional No chills 06/11/2011 Constitutional fatigue 06/11/2011 Constitutional No fever 06/11/2011 Eyes No vision change 06/11/2011 Cardiovascular No chest pain/pressure 10/2011 Cardiovascular No dyspnea 06/11/2011 Cardiovascular No edema 06/11/2011 Respiratory No cough 06/11/2011 Respiratory No chest congestion 2011 Respiratory No chest tightness 2011 Gastrointestinal No abdominal pain 2011 Constitutional No night sweats 2010 Constitutional No chills 03/11/2011 Constitutional fatigue 03/11/2011 Constitutional No fever 03/11/2011 Constitutional weight gain 03/11/2011 Eyes No vision change 03/11/2011 Ears/Nose/Throat/Neck No dizziness 2010 Ears/Nose/Throat/Neck No facial pain 10/2010 Ears/Nose/Throat/Neck No headache 2010 Cardiovascular No chest pain/pressure 10/2010 Cardiovascular dyspnea 03/11/2011 Cardiovascular exercise intolerance 03/11 Cardiovascular No edema 03/11/2011 Cardiovascular fatigue 03/11/2011 Gastrointestinal No abdominal pain 2010 Gastrointestinal No constipation 2010 Gastrointestinal No diarrhea 03/11/2011 Gastrointestinal No dyspepsia 03/11/2011 Gastrointestinal No gas and bloating 10/2010 Genitourinary/Nephrology No urinary urgency 03/11/2011 Genitourinary/Nephrology No urinary frequency 03/11/2011 Dermatologic No rash 03/11/2011 Dermatologic No sores 03/11/2011 Neurologic No alteration of consciousness 03/11/2011 Neurologic No dizziness 03/11/2011 Neurologic No ataxia 03/11/2011 Neurologic gait abnormality 03/11/2011 Psychiatric anxiety 03/11/2011 Psychiatric depression 03/11/2011 Constitutional No fever 02/12/2011 Constitutional No chills 02/12/2011 Ears/Nose/Throat/Neck No dizziness 2010 Cardiovascular No chest pain/pressure 01/2011 Cardiovascular No palpitations 2010 Gastrointestinal No vomiting 02/12/2011 Musculoskeletal myalgias 02/12/2011 Dermatologic No rash 02/12/2011 Dermatologic No sores 02/12/2011 Neurologic No ataxia 02/12/2011 Neurologic No dizziness 02/12/2011 Psychiatric No anxiety 02/12/2011 Psychiatric No depression 02/12/2011 Ears/Nose/Throat/Neck No headache 2010 Ears/Nose/Throat/Neck nasal allergies Ears/Nose/Throat/Neck No nasal discharge 01/29/2011 Ears/Nose/Throat/Neck No otitis media Ears/Nose/Throat/Neck No tinnitus 2010 Musculoskeletal joint complaint 2010 Musculoskeletal muscle weakness 2010 Respiratory dyspnea on exertion 2010 Respiratory dyspnea 01/29/2011 Respiratory No chest congestion 2010 Respiratory No chest tightness 2010 Respiratory No cough 01/29/2011 Constitutional No chills 01/29/2011 Constitutional fatigue 01/29/2011 Constitutional No fever 01/29/2011 Constitutional No insomnia 01/29/2011 Constitutional No recent illness 2010 Constitutional No anorexia 01/29/2011 Cardiovascular No chest pain/pressure Cardiovascular dyspnea 01/29/2011 Cardiovascular No edema 01/29/2011 Cardiovascular fatigue 01/29/2011 Cardiovascular No near-syncope/dizziness 01/29/2011 Cardiovascular No palpitations 2010 Cardiovascular No syncope 01/29/2011 Gastrointestinal No dysphagia 01/29/2011 Gastrointestinal No nausea 01/29/2011 Gastrointestinal No vomiting 01/29/2011 Gastrointestinal gastroesophageal reflux 01/29/2011 Gastrointestinal No diarrhea 01/29/2011 Gastrointestinal No constipation 2010 Physical Exam Exam Name System Name Item Name Status Result Effective Dates Notes Full Exam - General 1994 Constitutional general appearance Development: appears older than stated age 1104/27/2017 None Full Exam - General 1994 Constitutional general appearance Overall: well developed 04/27/2017 None Full Exam - General 1994 Constitutional general appearance Overall: in no acute distress 04/27/2017 None Full Exam - General 1994 Constitutional general appearance Overall: well nourished 04/27/2017 None Full Exam - General 1994 Constitutional general appearance Assistive Device: crutches 04/27/2017 None Full Exam - General 1994 Respiratory auscultation Overall: breath sounds clear bilaterally 04/27/2017 None Full Exam - General 1994 Respiratory respiratory effort/rhythm Overall: no retractions 04/27/2017 None Full Exam - General 1994 Respiratory respiratory effort/rhythm Overall: normal rate 04/27/2017 None Full Exam - General 1994 Cardiovascular auscultation of heart Overall: regular rate 04/27/2017 None Full Exam - General 1994 Cardiovascular auscultation of heart Overall: normal heart sounds 04/27/2017 None Full Exam - General 1994 Cardiovascular auscultation of heart Overall: no murmurs 04/27/2017 None Full Exam - General 1994 Abdomen abdominal exam Overall: no tenderness 04/27/2017 None Full Exam - General 1994 Abdomen abdominal exam Overall: normal bowel sounds 04/27/2017 None Full Exam - General 1994 Musculoskeletal lower extremity Overall: full strength in LLE 04/27/2017 None Full Exam - General 1994 Musculoskeletal lower extremity Overall: normal LLE bulk and tone 04/27/2017 None Full Exam - General 1994 Musculoskeletal spine, ribs and pelvis Posture: lordosis 04/27/2017 None Full Exam - General 1994 Neurologic deep tendon reflexes Overall: deep tendon reflexes intact 04/27/2017 None Full Exam - General 1994 Neurologic gait Overall: no ataxia, no unsteadiness 04/27/2017 None Full Exam - General 1994 Neurologic coordination Overall: no tremors 04/27/2017 None Full Exam - General 1994 Neurologic cranial nerves Overall: crainial nerves 2 - 12 grossly intact 04/27/2017 None Full Exam - General 1994 Psychiatric orientation/consciousness Overall: oriented to person, place and time 04/27/2017 None Full Exam - General 1994 Psychiatric mood and affect Overall: normal mood and affect 04/27/2017 None Full Exam - General 1994 Psychiatric appearance Grooming: disheveled 04/27/2017 None Full Exam - General 1994 Eyes conjunctiva /eyelids Overall: conjunctiva clear 04/27/2017 None Full Exam - General 1994 Eyes pupils and irises Overall: pupils equal, round, reactive to light and accomodation 04/27/2017 None Full Exam - General 1994 Ears/Nose/Throat otoscopic exam Overall: external auditory canals clear 04/27/2017 None Full Exam - General 1994 Ears/Nose/Throat otoscopic exam Overall: tympanic membranes clear 04/27/2017 None Full Exam - General 1994 Ears/Nose/Throat oral cavity/pharynx/larynx Overall: oral mucosa clear 04/27/2017 None Full Exam - General 1994 Integument inspection of skin Location: scalp 04/27/2017 healing 2cm laceration scalp Full Exam - Dermatology Constitutional general appearance Overall: well nourished 04/06/2017 None Full Exam - Dermatology Constitutional general appearance Overall: well developed 04/06/2017 None Full Exam - Dermatology Constitutional general appearance Overall: in no acute distress 04/06/2017 None Full Exam - Dermatology Psychiatric orientation Overall: oriented to person, place and time 04/06/2017 None Full Exam - Dermatology Abdomen anal exam Inspection: a hemorrhoid 04/06/2017 no inflammation, no bleeding Full Exam - Orthopedics Constitutional general appearance Overall: well nourished 02/25/2017 None Full Exam - Orthopedics Constitutional general appearance Overall: well developed 02/25/2017 None Full Exam - Orthopedics Constitutional general appearance Overall: in no acute distress 02/25/2017 None Full Exam - Orthopedics Constitutional general appearance Development: well developed 02/25/2017 None Full Exam - Orthopedics Constitutional general appearance Development: appears stated age 0902/25/2017 None Full Exam - Orthopedics Eyes conjunctiva/ eyelids Overall: conjunctiva clear 02/25/2017 None Full Exam - Orthopedics Eyes conjunctiva/ eyelids Overall: cornea clear 02/25/2017 None Full Exam - Orthopedics Eyes conjunctiva/ eyelids Overall: eyelids normal 02/25/2017 None Full Exam - Orthopedics Ears/Nose/Throat external ear Overall: normal appearance 02/25/2017 None Full Exam - Orthopedics Ears/Nose/Throat external ear Overall: no masses 02/25/2017 None Full Exam - Orthopedics Ears/Nose/Throat otoscopic exam Left tympanic membrane: not visualized 02/25/2017 cerumen Full Exam - Orthopedics Ears/Nose/Throat otoscopic exam Right tympanic membrane: not visualized 02/25/2017 cerumen Full Exam - Orthopedics Ears/Nose/Throat lips/teeth/gingiva Overall: benign lips 02/25/2017 None Full Exam - Orthopedics Ears/Nose/Throat oral cavity/pharynx/larynx Overall: oral mucosa clear 02/25/2017 None Full Exam - Orthopedics Respiratory auscultation Overall: breath sounds clear bilaterally 02/25/2017 None Full Exam - Orthopedics Respiratory respiratory effort/rhythm Overall: no retractions 02/25/2017 None Full Exam - Orthopedics Respiratory respiratory effort/rhythm Overall: normal rate 02/25/2017 None Full Exam - Orthopedics Cardiovascular examination of vasculature Overall: clear S1 and S2 02/25/2017 None Full Exam - Orthopedics Abdomen abdominal exam Overall: no tenderness 02/25/2017 None Full Exam - Orthopedics Abdomen abdominal exam Overall: normal bowel sounds 02/25/2017 None Full Exam - Orthopedics Musculoskeletal gait and station Conventional walking: abnormal on right 02/25/2017 None Full Exam - Orthopedics Musculoskeletal gait and station Conventional walking: asymmetric 02/25/2017 None Full Exam - Orthopedics Musculoskeletal gait and station Conventional walking: abnormal stride length 02/25/2017 None Full Exam - Orthopedics Musculoskeletal gait and station Conventional walking: abnormal stance 02/25/2017 None Full Exam - Orthopedics MS: head/neck insp & palp - H/N Overall: head atraumatic 02/25/2017 None Full Exam - Orthopedics MS: head/neck insp & palp - H/N Head: atraumatic 02/25/2017 None Full Exam - Orthopedics MS: head/neck insp & palp - H/N Head: normocephalic 02/25/2017 None Full Exam - Orthopedics Neurological orientation Overall: alert 02/25/2017 None Full Exam - Orthopedics Neurological orientation Overall: oriented to person, place and time 02/25/2017 None Full Exam - Orthopedics Psychiatric orientation/consciousness Overall: oriented to person, place and time 02/25/2017 None Full Exam - Orthopedics Psychiatric thought Form of thought: flight of ideas 02/25/2017 None Full Exam - Orthopedics Constitutional general appearance Overall: well nourished 01/19/2017 None Full Exam - Orthopedics Constitutional general appearance Overall: well developed 01/19/2017 None Full Exam - Orthopedics Constitutional general appearance Overall: in no acute distress 01/19/2017 None Full Exam - Orthopedics Constitutional general appearance Development: well developed 01/19/2017 None Full Exam - Orthopedics Constitutional general appearance Development: appears stated age 0801/19/2017 None Full Exam - Orthopedics Eyes conjunctiva/ eyelids Overall: conjunctiva clear 01/19/2017 None Full Exam - Orthopedics Eyes conjunctiva/ eyelids Overall: cornea clear 01/19/2017 None Full Exam - Orthopedics Eyes conjunctiva/ eyelids Overall: eyelids normal 01/19/2017 None Full Exam - Orthopedics Ears/Nose/Throat external ear Overall: normal appearance 01/19/2017 None Full Exam - Orthopedics Ears/Nose/Throat external ear Overall: no masses 01/19/2017 None Full Exam - Orthopedics Ears/Nose/Throat otoscopic exam Left tympanic membrane: not visualized 01/19/2017 cerumen Full Exam - Orthopedics Ears/Nose/Throat otoscopic exam Right tympanic membrane: not visualized 01/19/2017 cerumen Full Exam - Orthopedics Ears/Nose/Throat lips/teeth/gingiva Overall: benign lips 01/19/2017 None Full Exam - Orthopedics Ears/Nose/Throat oral cavity/pharynx/larynx Overall: oral mucosa clear 01/19/2017 None Full Exam - Orthopedics Respiratory auscultation Overall: breath sounds clear bilaterally 01/19/2017 None Full Exam - Orthopedics Respiratory respiratory effort/rhythm Overall: no retractions 01/19/2017 None Full Exam - Orthopedics Respiratory respiratory effort/rhythm Overall: normal rate 01/19/2017 None Full Exam - Orthopedics Cardiovascular examination of vasculature Overall: clear S1 and S2 01/19/2017 None Full Exam - Orthopedics Abdomen abdominal exam Overall: no tenderness 01/19/2017 None Full Exam - Orthopedics Abdomen abdominal exam Overall: normal bowel sounds 01/19/2017 None Full Exam - Orthopedics Musculoskeletal gait and station Conventional walking: abnormal on right 01/19/2017 None Full Exam - Orthopedics Musculoskeletal gait and station Conventional walking: asymmetric 01/19/2017 None Full Exam - Orthopedics Musculoskeletal gait and station Conventional walking: abnormal stride length 01/19/2017 None Full Exam - Orthopedics Musculoskeletal gait and station Conventional walking: abnormal stance 01/19/2017 None Full Exam - Orthopedics MS: head/neck insp & palp - H/N Overall: head atraumatic 01/19/2017 None Full Exam - Orthopedics MS: head/neck insp & palp - H/N Head: atraumatic 01/19/2017 None Full Exam - Orthopedics MS: head/neck insp & palp - H/N Head: normocephalic 01/19/2017 None Full Exam - Orthopedics Neurological orientation Overall: alert 01/19/2017 None Full Exam - Orthopedics Neurological orientation Overall: oriented to person, place and time 01/19/2017 None Full Exam - Orthopedics Neurological mood and affect Mood: depressed 01/19/2017 None Full Exam - Orthopedics Neurological mood and affect Mood: anxious 01/19/2017 None Full Exam - Orthopedics Psychiatric orientation/consciousness Overall: oriented to person, place and time 01/19/2017 None Full Exam - Orthopedics Psychiatric thought Form of thought: flight of ideas 01/19/2017 None Full Exam - Orthopedics Constitutional general appearance Overall: well nourished 11/17/2016 None Full Exam - Orthopedics Constitutional general appearance Overall: well developed 11/17/2016 None Full Exam - Orthopedics Constitutional general appearance Overall: in no acute distress 11/17/2016 None Full Exam - Orthopedics Constitutional general appearance Development: well developed 11/17/2016 None Full Exam - Orthopedics Constitutional general appearance Development: appears stated age 0611/17/2016 None Full Exam - Orthopedics Eyes conjunctiva/ eyelids Overall: conjunctiva clear 11/17/2016 None Full Exam - Orthopedics Eyes conjunctiva/ eyelids Overall: cornea clear 11/17/2016 None Full Exam - Orthopedics Eyes conjunctiva/ eyelids Overall: eyelids normal 11/17/2016 None Full Exam - Orthopedics Ears/Nose/Throat external ear Overall: normal appearance 11/17/2016 None Full Exam - Orthopedics Ears/Nose/Throat external ear Overall: no masses 11/17/2016 None Full Exam - Orthopedics Ears/Nose/Throat otoscopic exam Left tympanic membrane: not visualized 11/17/2016 cerumen Full Exam - Orthopedics Ears/Nose/Throat otoscopic exam Right tympanic membrane: not visualized 11/17/2016 cerumen Full Exam - Orthopedics Ears/Nose/Throat lips/teeth/gingiva Overall: benign lips 11/17/2016 None Full Exam - Orthopedics Ears/Nose/Throat oral cavity/pharynx/larynx Overall: oral mucosa clear 11/17/2016 None Full Exam - Orthopedics Respiratory auscultation Overall: breath sounds clear bilaterally 11/17/2016 None Full Exam - Orthopedics Respiratory respiratory effort/rhythm Overall: no retractions 11/17/2016 None Full Exam - Orthopedics Respiratory respiratory effort/rhythm Overall: normal rate 11/17/2016 None Full Exam - Orthopedics Cardiovascular examination of vasculature Overall: clear S1 and S2 11/17/2016 None Full Exam - Orthopedics Abdomen abdominal exam Overall: no tenderness 11/17/2016 None Full Exam - Orthopedics Abdomen abdominal exam Overall: normal bowel sounds 11/17/2016 None Full Exam - Orthopedics Musculoskeletal gait and station Conventional walking: abnormal on right 11/17/2016 None Full Exam - Orthopedics Musculoskeletal gait and station Conventional walking: asymmetric 11/17/2016 None Full Exam - Orthopedics Musculoskeletal gait and station Conventional walking: abnormal stride length 11/17/2016 None Full Exam - Orthopedics Musculoskeletal gait and station Conventional walking: abnormal stance 11/17/2016 None Full Exam - Orthopedics MS: head/neck insp & palp - H/N Overall: head atraumatic 11/17/2016 None Full Exam - Orthopedics MS: head/neck insp & palp - H/N Head: atraumatic 11/17/2016 None Full Exam - Orthopedics MS: head/neck insp & palp - H/N Head: normocephalic 11/17/2016 None Full Exam - Orthopedics MS: Bilateral Lower Extremities insp & palp - LE Ankles: normal appearance 11/17/2016 None Full Exam - Orthopedics MS: Bilateral Lower Extremities insp & palp - LE Ankles: pain on palpation 11/17/2016 None Full Exam - Orthopedics MS: Bilateral Lower Extremities range of motion - LE Ankles: full range of motion 11/17/2016 None Full Exam - Orthopedics MS: Bilateral Lower Extremities stability - LE Ankles: stable ankle 11/17/2016 None Full Exam - Orthopedics MS: Bilateral Lower Extremities strength & tone - LE Ankle strength: normal flexion with 5/5 strength 11/17/2016 None Full Exam - Orthopedics MS: Bilateral Lower Extremities strength & tone - LE Ankle strength: normal extension with 5/5 strength 11/17/2016 None Full Exam - Orthopedics MS: right lower extremity insp & palp - RLE Ankle: normal appearance 11/17/2016 None Full Exam - Orthopedics Neurological orientation Overall: alert 11/17/2016 None Full Exam - Orthopedics Neurological orientation Overall: oriented to person, place and time 11/17/2016 None Full Exam - Orthopedics Neurological mood and affect Mood: depressed 11/17/2016 None Full Exam - Orthopedics Psychiatric orientation/consciousness Overall: oriented to person, place and time 11/17/2016 None Full Exam - Orthopedics Constitutional general appearance Overall: well nourished 10/12/2016 None Full Exam - Orthopedics Constitutional general appearance Overall: well developed 10/12/2016 None Full Exam - Orthopedics Constitutional general appearance Overall: in no acute distress 10/12/2016 None Full Exam - Orthopedics Constitutional general appearance Development: well developed 10/12/2016 None Full Exam - Orthopedics Constitutional general appearance Development: appears stated age 0510/12/2016 None Full Exam - Orthopedics Eyes conjunctiva/ eyelids Overall: conjunctiva clear 10/12/2016 None Full Exam - Orthopedics Eyes conjunctiva/ eyelids Overall: cornea clear 10/12/2016 None Full Exam - Orthopedics Eyes conjunctiva/ eyelids Overall: eyelids normal 10/12/2016 None Full Exam - Orthopedics Ears/Nose/Throat external ear Overall: normal appearance 10/12/2016 None Full Exam - Orthopedics Ears/Nose/Throat external ear Overall: no masses 10/12/2016 None Full Exam - Orthopedics Ears/Nose/Throat otoscopic exam Left tympanic membrane: not visualized 10/12/2016 cerumen Full Exam - Orthopedics Ears/Nose/Throat otoscopic exam Right tympanic membrane: not visualized 10/12/2016 cerumen Full Exam - Orthopedics Ears/Nose/Throat lips/teeth/gingiva Overall: benign lips 10/12/2016 None Full Exam - Orthopedics Ears/Nose/Throat oral cavity/pharynx/larynx Overall: oral mucosa clear 10/12/2016 None Full Exam - Orthopedics Respiratory auscultation Overall: breath sounds clear bilaterally 10/12/2016 None Full Exam - Orthopedics Respiratory respiratory effort/rhythm Overall: no retractions 10/12/2016 None Full Exam - Orthopedics Respiratory respiratory effort/rhythm Overall: normal rate 10/12/2016 None Full Exam - Orthopedics Cardiovascular examination of vasculature Overall: clear S1 and S2 10/12/2016 None Full Exam - Orthopedics Abdomen abdominal exam Overall: no tenderness 10/12/2016 None Full Exam - Orthopedics Abdomen abdominal exam Overall: normal bowel sounds 10/12/2016 None Full Exam - Orthopedics Musculoskeletal gait and station Conventional walking: abnormal on right 10/12/2016 None Full Exam - Orthopedics Musculoskeletal gait and station Conventional walking: asymmetric 10/12/2016 None Full Exam - Orthopedics Musculoskeletal gait and station Conventional walking: abnormal stride length 10/12/2016 None Full Exam - Orthopedics Musculoskeletal gait and station Conventional walking: abnormal stance 10/12/2016 None Full Exam - Orthopedics MS: head/neck insp & palp - H/N Overall: head atraumatic 10/12/2016 None Full Exam - Orthopedics MS: head/neck insp & palp - H/N Head: atraumatic 10/12/2016 None Full Exam - Orthopedics MS: head/neck insp & palp - H/N Head: normocephalic 10/12/2016 None Full Exam - Orthopedics MS: right lower extremity insp & palp - RLE Ankle: normal appearance 10/12/2016 None Full Exam - Orthopedics Integument insp & palp - right lower extremity Foot inspection: ulcer 10/12/2016 sole of right foot -cleansed -dirt removed from wound, cleansed and covered with neosporin and bandaid Full Exam - Orthopedics Neurological orientation Overall: alert 10/12/2016 None Full Exam - Orthopedics Neurological orientation Overall: oriented to person, place and time 10/12/2016 None Full Exam - Orthopedics Neurological mood and affect Mood: depressed 10/12/2016 None Full Exam - Orthopedics Neurological mood and affect Mood: anxious 10/12/2016 None Full Exam - Orthopedics Psychiatric orientation/consciousness Overall: oriented to person, place and time 10/12/2016 None Full Exam - Orthopedics Psychiatric thought Form of thought: flight of ideas 10/12/2016 None Full Exam - Orthopedics MS: Bilateral Lower Extremities insp & palp - LE Ankles: normal appearance 10/12/2016 None Full Exam - Orthopedics MS: Bilateral Lower Extremities insp & palp - LE Ankles: pain on palpation 10/12/2016 None Full Exam - Orthopedics MS: Bilateral Lower Extremities range of motion - LE Ankles: full range of motion 10/12/2016 None Full Exam - Orthopedics MS: Bilateral Lower Extremities stability - LE Ankles: stable ankle 10/12/2016 None Full Exam - Orthopedics MS: Bilateral Lower Extremities strength & tone - LE Ankle strength: normal flexion with 5/5 strength 10/12/2016 None Full Exam - Orthopedics MS: Bilateral Lower Extremities strength & tone - LE Ankle strength: normal extension with 5/5 strength 10/12/2016 None Full Exam - Orthopedics Constitutional general appearance Overall: well nourished 08/18/2016 None Full Exam - Orthopedics Constitutional general appearance Overall: well developed 08/18/2016 None Full Exam - Orthopedics Constitutional general appearance Overall: in no acute distress 08/18/2016 None Full Exam - Orthopedics Constitutional general appearance Development: well developed 08/18/2016 None Full Exam - Orthopedics Constitutional general appearance Development: appears stated age 0308/18/2016 None Full Exam - Orthopedics Eyes conjunctiva/ eyelids Overall: conjunctiva clear 08/18/2016 None Full Exam - Orthopedics Eyes conjunctiva/ eyelids Overall: cornea clear 08/18/2016 None Full Exam - Orthopedics Eyes conjunctiva/ eyelids Overall: eyelids normal 08/18/2016 None Full Exam - Orthopedics Ears/Nose/Throat external ear Overall: normal appearance 08/18/2016 None Full Exam - Orthopedics Ears/Nose/Throat external ear Overall: no masses 08/18/2016 None Full Exam - Orthopedics Ears/Nose/Throat otoscopic exam Left tympanic membrane: not visualized 08/18/2016 cerumen Full Exam - Orthopedics Ears/Nose/Throat otoscopic exam Right tympanic membrane: not visualized 08/18/2016 cerumen Full Exam - Orthopedics Ears/Nose/Throat lips/teeth/gingiva Overall: benign lips 08/18/2016 None Full Exam - Orthopedics Ears/Nose/Throat oral cavity/pharynx/larynx Overall: oral mucosa clear 08/18/2016 None Full Exam - Orthopedics Respiratory auscultation Overall: breath sounds clear bilaterally 08/18/2016 None Full Exam - Orthopedics Respiratory respiratory effort/rhythm Overall: no retractions 08/18/2016 None Full Exam - Orthopedics Respiratory respiratory effort/rhythm Overall: normal rate 08/18/2016 None Full Exam - Orthopedics Cardiovascular examination of vasculature Overall: clear S1 and S2 08/18/2016 None Full Exam - Orthopedics Abdomen abdominal exam Overall: no tenderness 08/18/2016 None Full Exam - Orthopedics Abdomen abdominal exam Overall: normal bowel sounds 08/18/2016 None Full Exam - Orthopedics Musculoskeletal gait and station Conventional walking: abnormal on right 08/18/2016 None Full Exam - Orthopedics Musculoskeletal gait and station Conventional walking: asymmetric 08/18/2016 None Full Exam - Orthopedics Musculoskeletal gait and station Conventional walking: abnormal stride length 08/18/2016 None Full Exam - Orthopedics Musculoskeletal gait and station Conventional walking: abnormal stance 08/18/2016 None Full Exam - Orthopedics MS: head/neck insp & palp - H/N Overall: head atraumatic 08/18/2016 None Full Exam - Orthopedics MS: head/neck insp & palp - H/N Head: atraumatic 08/18/2016 None Full Exam - Orthopedics MS: head/neck insp & palp - H/N Head: normocephalic 08/18/2016 None Full Exam - Orthopedics Neurological orientation Overall: alert 08/18/2016 None Full Exam - Orthopedics Neurological orientation Overall: oriented to person, place and time 08/18/2016 None Full Exam - Orthopedics Neurological mood and affect Mood: depressed 08/18/2016 None Full Exam - Orthopedics Neurological mood and affect Mood: anxious 08/18/2016 None Full Exam - Orthopedics Psychiatric orientation/consciousness Overall: oriented to person, place and time 08/18/2016 None Full Exam - Orthopedics Psychiatric thought Form of thought: flight of ideas 08/18/2016 None Full Exam - Orthopedics MS: right lower extremity insp & palp - RLE Ankle: normal appearance 08/18/2016 None Full Exam - Orthopedics Integument insp & palp - right lower extremity Foot inspection: ulcer 08/18/2016 sole of right foot -cleansed -dirt removed from wound, cleansed and covered with neosporin and bandaid Full Exam - General 1994 Constitutional general appearance Overall: well nourished 08/07/2016 None Full Exam - General 1994 Constitutional general appearance Overall: in no acute distress 08/07/2016 None Full Exam - General 1994 Constitutional general appearance Overall: well developed 08/07/2016 None Full Exam - General 1994 Psychiatric orientation/consciousness Overall: oriented to person, place and time 08/07/2016 None Full Exam - General 1994 Respiratory auscultation Overall: breath sounds clear bilaterally 08/07/2016 None Full Exam - General 1994 Respiratory respiratory effort/rhythm Overall: normal rate 08/07/2016 None Full Exam - General 1994 Respiratory respiratory effort/rhythm Overall: no retractions 08/07/2016 None Full Exam - General 1994 Cardiovascular auscultation of heart Overall: regular rate 08/07/2016 None Full Exam - General 1994 Cardiovascular auscultation of heart Overall: normal heart sounds 08/07/2016 None Full Exam - Orthopedics Constitutional general appearance Overall: well nourished 07/31/2016 None Full Exam - Orthopedics Constitutional general appearance Overall: well developed 07/31/2016 None Full Exam - Orthopedics Constitutional general appearance Overall: in no acute distress 07/31/2016 None Full Exam - Orthopedics Constitutional general appearance Development: well developed 07/31/2016 None Full Exam - Orthopedics Constitutional general appearance Development: appears stated age 0207/31/2016 None Full Exam - Orthopedics Eyes conjunctiva/ eyelids Overall: conjunctiva clear 07/31/2016 None Full Exam - Orthopedics Eyes conjunctiva/ eyelids Overall: cornea clear 07/31/2016 None Full Exam - Orthopedics Eyes conjunctiva/ eyelids Overall: eyelids normal 07/31/2016 None Full Exam - Orthopedics Ears/Nose/Throat external ear Overall: normal appearance 07/31/2016 None Full Exam - Orthopedics Ears/Nose/Throat external ear Overall: no masses 07/31/2016 None Full Exam - Orthopedics Ears/Nose/Throat otoscopic exam Left tympanic membrane: not visualized 07/31/2016 cerumen Full Exam - Orthopedics Ears/Nose/Throat otoscopic exam Right tympanic membrane: not visualized 07/31/2016 cerumen Full Exam - Orthopedics Ears/Nose/Throat lips/teeth/gingiva Overall: benign lips 07/31/2016 None Full Exam - Orthopedics Ears/Nose/Throat oral cavity/pharynx/larynx Overall: oral mucosa clear 07/31/2016 None Full Exam - Orthopedics Respiratory auscultation Overall: breath sounds clear bilaterally 07/31/2016 None Full Exam - Orthopedics Respiratory respiratory effort/rhythm Overall: no retractions 07/31/2016 None Full Exam - Orthopedics Respiratory respiratory effort/rhythm Overall: normal rate 07/31/2016 None Full Exam - Orthopedics Cardiovascular examination of vasculature Overall: clear S1 and S2 07/31/2016 None Full Exam - Orthopedics Abdomen abdominal exam Overall: no tenderness 07/31/2016 None Full Exam - Orthopedics Abdomen abdominal exam Overall: normal bowel sounds 07/31/2016 None Full Exam - Orthopedics Musculoskeletal gait and station Conventional walking: abnormal on right 07/31/2016 None Full Exam - Orthopedics Musculoskeletal gait and station Conventional walking: asymmetric 07/31/2016 None Full Exam - Orthopedics Musculoskeletal gait and station Conventional walking: abnormal stride length 07/31/2016 None Full Exam - Orthopedics Musculoskeletal gait and station Conventional walking: abnormal stance 07/31/2016 None Full Exam - Orthopedics MS: head/neck insp & palp - H/N Overall: head atraumatic 07/31/2016 None Full Exam - Orthopedics MS: head/neck insp & palp - H/N Head: atraumatic 07/31/2016 None Full Exam - Orthopedics MS: head/neck insp & palp - H/N Head: normocephalic 07/31/2016 None Full Exam - Orthopedics Neurological orientation Overall: alert 07/31/2016 None Full Exam - Orthopedics Neurological orientation Overall: oriented to person, place and time 07/31/2016 None Full Exam - Orthopedics Neurological mood and affect Mood: depressed 07/31/2016 None Full Exam - Orthopedics Neurological mood and affect Mood: anxious 07/31/2016 None Full Exam - Orthopedics Psychiatric orientation/consciousness Overall: oriented to person, place and time 07/31/2016 None Full Exam - Orthopedics Psychiatric thought Form of thought: flight of ideas 07/31/2016 None Full Exam - Orthopedics MS: Bilateral Lower Extremities strength & tone - LE Ankle strength: normal flexion with 5/5 strength 07/31/2016 None Full Exam - Orthopedics MS: Bilateral Lower Extremities strength & tone - LE Ankle strength: normal extension with 5/5 strength 07/31/2016 None Full Exam - Orthopedics MS: Bilateral Lower Extremities stability - LE Ankles: stable ankle 07/31/2016 None Full Exam - Orthopedics MS: Bilateral Lower Extremities insp & palp - LE Ankles: normal appearance 07/31/2016 None Full Exam - Orthopedics MS: Bilateral Lower Extremities insp & palp - LE Ankles: pain on palpation 07/31/2016 None Full Exam - Orthopedics MS: Bilateral Lower Extremities range of motion - LE Ankles: full range of motion 07/31/2016 None Full Exam - Orthopedics Constitutional general appearance Overall: well nourished 07/15/2016 None Full Exam - Orthopedics Constitutional general appearance Overall: well developed 07/15/2016 None Full Exam - Orthopedics Constitutional general appearance Overall: in no acute distress 07/15/2016 None Full Exam - Orthopedics Eyes conjunctiva/ eyelids Overall: conjunctiva clear 07/15/2016 None Full Exam - Orthopedics Eyes conjunctiva/ eyelids Overall: eyelids normal 07/15/2016 None Full Exam - Orthopedics Ears/Nose/Throat lips/teeth/gingiva Overall: benign lips 07/15/2016 None Full Exam - Orthopedics Ears/Nose/Throat oral cavity/pharynx/larynx Overall: oral mucosa clear 07/15/2016 None Full Exam - Orthopedics Respiratory auscultation Overall: breath sounds clear bilaterally 07/15/2016 None Full Exam - Orthopedics Respiratory respiratory effort/rhythm Overall: no retractions 07/15/2016 None Full Exam - Orthopedics Respiratory respiratory effort/rhythm Overall: normal rate 07/15/2016 None Full Exam - Orthopedics Cardiovascular examination of vasculature Overall: clear S1 and S2 07/15/2016 None Full Exam - Orthopedics MS: head/neck insp & palp - H/N Overall: head atraumatic 07/15/2016 None Full Exam - Orthopedics MS: head/neck insp & palp - H/N Head: atraumatic 07/15/2016 None Full Exam - Orthopedics MS: head/neck insp & palp - H/N Head: normocephalic 07/15/2016 None Full Exam - Orthopedics Neurological orientation Overall: alert 07/15/2016 None Full Exam - Orthopedics Neurological orientation Overall: oriented to person, place and time 07/15/2016 None Full Exam - Orthopedics Neurological mood and affect Mood: depressed 07/15/2016 None Full Exam - Orthopedics Neurological mood and affect Mood: anxious 07/15/2016 None Full Exam - Orthopedics Psychiatric orientation/consciousness Overall: oriented to person, place and time 07/15/2016 None Full Exam - Orthopedics Psychiatric thought Form of thought: flight of ideas 07/15/2016 excessive speech Full Exam - Orthopedics MS: head/neck insp & palp - H/N Cervical spine palpation: tender facet joints 07/15/2016 None Full Exam - Orthopedics Psychiatric mood and affect Mood: labile mood 07/15/2016 None Full Exam - Orthopedics Constitutional general appearance Overall: well nourished 07/07/2016 None Full Exam - Orthopedics Constitutional general appearance Overall: well developed 07/07/2016 None Full Exam - Orthopedics Constitutional general appearance Overall: in no acute distress 07/07/2016 None Full Exam - Orthopedics Constitutional general appearance Development: well developed 07/07/2016 None Full Exam - Orthopedics Constitutional general appearance Development: appears stated age 0107/07/2016 None Full Exam - Orthopedics Eyes conjunctiva/ eyelids Overall: conjunctiva clear 07/07/2016 None Full Exam - Orthopedics Eyes conjunctiva/ eyelids Overall: cornea clear 07/07/2016 None Full Exam - Orthopedics Eyes conjunctiva/ eyelids Overall: eyelids normal 07/07/2016 None Full Exam - Orthopedics Ears/Nose/Throat external ear Overall: normal appearance 07/07/2016 None Full Exam - Orthopedics Ears/Nose/Throat external ear Overall: no masses 07/07/2016 None Full Exam - Orthopedics Ears/Nose/Throat otoscopic exam Left tympanic membrane: not visualized 07/07/2016 cerumen Full Exam - Orthopedics Ears/Nose/Throat otoscopic exam Right tympanic membrane: not visualized 07/07/2016 cerumen Full Exam - Orthopedics Ears/Nose/Throat lips/teeth/gingiva Overall: benign lips 07/07/2016 None Full Exam - Orthopedics Ears/Nose/Throat oral cavity/pharynx/larynx Overall: oral mucosa clear 07/07/2016 None Full Exam - Orthopedics Respiratory auscultation Overall: breath sounds clear bilaterally 07/07/2016 None Full Exam - Orthopedics Respiratory respiratory effort/rhythm Overall: no retractions 07/07/2016 None Full Exam - Orthopedics Respiratory respiratory effort/rhythm Overall: normal rate 07/07/2016 None Full Exam - Orthopedics Cardiovascular examination of vasculature Overall: clear S1 and S2 07/07/2016 None Full Exam - Orthopedics Abdomen abdominal exam Overall: no tenderness 07/07/2016 None Full Exam - Orthopedics Abdomen abdominal exam Overall: normal bowel sounds 07/07/2016 None Full Exam - Orthopedics Musculoskeletal gait and station Conventional walking: abnormal on right 07/07/2016 None Full Exam - Orthopedics Musculoskeletal gait and station Conventional walking: asymmetric 07/07/2016 None Full Exam - Orthopedics Musculoskeletal gait and station Conventional walking: abnormal stride length 07/07/2016 None Full Exam - Orthopedics Musculoskeletal gait and station Conventional walking: abnormal stance 07/07/2016 None Full Exam - Orthopedics MS: head/neck insp & palp - H/N Overall: head atraumatic 07/07/2016 None Full Exam - Orthopedics MS: head/neck insp & palp - H/N Head: atraumatic 07/07/2016 None Full Exam - Orthopedics MS: head/neck insp & palp - H/N Head: normocephalic 07/07/2016 None Full Exam - Orthopedics MS: head/neck insp & palp - H/N Left TMJ: tender 07/07/2016 None Full Exam - Orthopedics MS: head/neck insp & palp - H/N Left TMJ: pain with ROM 07/07/2016 None Full Exam - Orthopedics MS: head/neck insp & palp - H/N Right TMJ: tender 07/07/2016 None Full Exam - Orthopedics MS: head/neck insp & palp - H/N Right TMJ: pain with ROM 07/07/2016 None Full Exam - Orthopedics MS: head/neck insp & palp - H/N Cervical spine inspection: normal cervical lordosis 07/07/2016 None Full Exam - Orthopedics MS: head/neck insp & palp - H/N Cervical spine palpation: tender spinous processes 07/07/2016 None Full Exam - Orthopedics MS: head/neck insp & palp - H/N Cervical muscles palpation: tender left trapezius 07/07/2016 None Full Exam - Orthopedics MS: head/neck insp & palp - H/N Cervical muscles palpation: tender right trapezius 07/07/2016 None Full Exam - Orthopedics Neurological orientation Overall: alert 07/07/2016 None Full Exam - Orthopedics Neurological orientation Overall: oriented to person, place and time 07/07/2016 None Full Exam - Orthopedics Neurological mood and affect Mood: depressed 07/07/2016 None Full Exam - Orthopedics Neurological mood and affect Mood: anxious 07/07/2016 None Full Exam - Orthopedics Psychiatric orientation/consciousness Overall: oriented to person, place and time 07/07/2016 None Full Exam - Orthopedics Psychiatric thought Form of thought: flight of ideas 07/07/2016 None Full Exam - Orthopedics Constitutional general appearance Overall: well nourished 06/25/2016 None Full Exam - Orthopedics Constitutional general appearance Overall: well developed 06/25/2016 None Full Exam - Orthopedics Constitutional general appearance Overall: in no acute distress 06/25/2016 None Full Exam - Orthopedics Constitutional general appearance Development: well developed 06/25/2016 None Full Exam - Orthopedics Constitutional general appearance Development: appears stated age 0106/25/2016 None Full Exam - Orthopedics Eyes conjunctiva/ eyelids Overall: conjunctiva clear 06/25/2016 None Full Exam - Orthopedics Eyes conjunctiva/ eyelids Overall: cornea clear 06/25/2016 None Full Exam - Orthopedics Eyes conjunctiva/ eyelids Overall: eyelids normal 06/25/2016 None Full Exam - Orthopedics Ears/Nose/Throat external ear Overall: normal appearance 06/25/2016 None Full Exam - Orthopedics Ears/Nose/Throat external ear Overall: no masses 06/25/2016 None Full Exam - Orthopedics Ears/Nose/Throat lips/teeth/gingiva Overall: benign lips 06/25/2016 None Full Exam - Orthopedics Ears/Nose/Throat oral cavity/pharynx/larynx Overall: oral mucosa clear 06/25/2016 None Full Exam - Orthopedics Respiratory auscultation Overall: breath sounds clear bilaterally 06/25/2016 None Full Exam - Orthopedics Respiratory respiratory effort/rhythm Overall: no retractions 06/25/2016 None Full Exam - Orthopedics Respiratory respiratory effort/rhythm Overall: normal rate 06/25/2016 None Full Exam - Orthopedics Cardiovascular examination of vasculature Overall: clear S1 and S2 06/25/2016 None Full Exam - Orthopedics MS: head/neck insp & palp - H/N Head: atraumatic 06/25/2016 None Full Exam - Orthopedics MS: head/neck insp & palp - H/N Head: normocephalic 06/25/2016 None Full Exam - Orthopedics MS: head/neck insp & palp - H/N Left TMJ: tender 06/25/2016 None Full Exam - Orthopedics MS: head/neck insp & palp - H/N Left TMJ: pain with ROM 06/25/2016 None Full Exam - Orthopedics MS: head/neck insp & palp - H/N Right TMJ: tender 06/25/2016 None Full Exam - Orthopedics MS: head/neck insp & palp - H/N Right TMJ: pain with ROM 06/25/2016 None Full Exam - Orthopedics MS: head/neck insp & palp - H/N Cervical spine inspection: normal cervical lordosis 06/25/2016 None Full Exam - Orthopedics MS: head/neck insp & palp - H/N Cervical spine palpation: tender spinous processes 06/25/2016 None Full Exam - Orthopedics MS: head/neck insp & palp - H/N Cervical muscles palpation: tender left trapezius 06/25/2016 None Full Exam - Orthopedics MS: head/neck insp & palp - H/N Cervical muscles palpation: tender right trapezius 06/25/2016 None Full Exam - Orthopedics Neurological orientation Overall: alert 06/25/2016 None Full Exam - Orthopedics Neurological orientation Overall: oriented to person, place and time 06/25/2016 None Full Exam - Orthopedics Neurological mood and affect Mood: depressed 06/25/2016 None Full Exam - Orthopedics Neurological mood and affect Mood: anxious 06/25/2016 None Full Exam - Orthopedics Psychiatric orientation/consciousness Overall: oriented to person, place and time 06/25/2016 None Full Exam - Orthopedics Psychiatric thought Form of thought: flight of ideas 06/25/2016 None Full Exam - Orthopedics MS: head/neck insp & palp - H/N Overall: head atraumatic 06/25/2016 None Full Exam - Orthopedics Constitutional general appearance Overall: well nourished 05/07/2016 None Full Exam - Orthopedics Constitutional general appearance Overall: well developed 05/07/2016 None Full Exam - Orthopedics Constitutional general appearance Overall: in no acute distress 05/07/2016 None Full Exam - Orthopedics Constitutional general appearance Development: well developed 05/07/2016 None Full Exam - Orthopedics Constitutional general appearance Development: appears stated age 1205/07/2016 None Full Exam - Orthopedics Eyes conjunctiva/ eyelids Overall: conjunctiva clear 05/07/2016 None Full Exam - Orthopedics Eyes conjunctiva/ eyelids Overall: cornea clear 05/07/2016 None Full Exam - Orthopedics Eyes conjunctiva/ eyelids Overall: eyelids normal 05/07/2016 None Full Exam - Orthopedics Ears/Nose/Throat external ear Overall: normal appearance 05/07/2016 None Full Exam - Orthopedics Ears/Nose/Throat external ear Overall: no masses 05/07/2016 None Full Exam - Orthopedics Ears/Nose/Throat otoscopic exam Right tympanic membrane: not visualized 05/07/2016 cerumen Full Exam - Orthopedics Ears/Nose/Throat otoscopic exam Left tympanic membrane: not visualized 05/07/2016 cerumen Full Exam - Orthopedics Ears/Nose/Throat lips/teeth/gingiva Overall: benign lips 05/07/2016 None Full Exam - Orthopedics Ears/Nose/Throat oral cavity/pharynx/larynx Overall: oral mucosa clear 05/07/2016 None Full Exam - Orthopedics Respiratory auscultation Overall: breath sounds clear bilaterally 05/07/2016 None Full Exam - Orthopedics Respiratory respiratory effort/rhythm Overall: no retractions 05/07/2016 None Full Exam - Orthopedics Respiratory respiratory effort/rhythm Overall: normal rate 05/07/2016 None Full Exam - Orthopedics Cardiovascular examination of vasculature Overall: clear S1 and S2 05/07/2016 None Full Exam - Orthopedics Abdomen abdominal exam Overall: no tenderness 05/07/2016 None Full Exam - Orthopedics Abdomen abdominal exam Overall: normal bowel sounds 05/07/2016 None Full Exam - Orthopedics Musculoskeletal gait and station Conventional walking: abnormal on right 05/07/2016 None Full Exam - Orthopedics Musculoskeletal gait and station Conventional walking: asymmetric 05/07/2016 None Full Exam - Orthopedics Musculoskeletal gait and station Conventional walking: abnormal stride length 05/07/2016 None Full Exam - Orthopedics Musculoskeletal gait and station Conventional walking: abnormal stance 05/07/2016 None Full Exam - Orthopedics MS: head/neck insp & palp - H/N Overall: head atraumatic 05/07/2016 None Full Exam - Orthopedics MS: head/neck insp & palp - H/N Left TMJ: tender 05/07/2016 None Full Exam - Orthopedics MS: head/neck insp & palp - H/N Right TMJ: tender 05/07/2016 None Full Exam - Orthopedics MS: head/neck insp & palp - H/N Left TMJ: pain with ROM 05/07/2016 None Full Exam - Orthopedics MS: head/neck insp & palp - H/N Right TMJ: pain with ROM 05/07/2016 None Full Exam - Orthopedics MS: head/neck insp & palp - H/N Head: atraumatic 05/07/2016 None Full Exam - Orthopedics MS: head/neck insp & palp - H/N Head: normocephalic 05/07/2016 None Full Exam - Orthopedics MS: head/neck insp & palp - H/N Cervical spine inspection: normal cervical lordosis 05/07/2016 None Full Exam - Orthopedics MS: head/neck insp & palp - H/N Cervical spine palpation: tender spinous processes 05/07/2016 None Full Exam - Orthopedics MS: head/neck insp & palp - H/N Cervical muscles palpation: tender left trapezius 05/07/2016 None Full Exam - Orthopedics MS: head/neck insp & palp - H/N Cervical muscles palpation: tender right trapezius 05/07/2016 None Full Exam - Orthopedics Neurological orientation Overall: oriented to person, place and time 05/07/2016 None Full Exam - Orthopedics Neurological orientation Overall: alert 05/07/2016 None Full Exam - Orthopedics Neurological mood and affect Mood: anxious 05/07/2016 None Full Exam - Orthopedics Neurological mood and affect Mood: depressed 05/07/2016 None Full Exam - Orthopedics Psychiatric orientation/consciousness Overall: oriented to person, place and time 05/07/2016 None Full Exam - Orthopedics Psychiatric thought Form of thought: flight of ideas 05/07/2016 None Full Exam - General 1994 Constitutional general appearance Development: appears older than stated age 1104/20/2016 None Full Exam - General 1994 Constitutional general appearance Overall: well developed 04/20/2016 None Full Exam - General 1994 Constitutional general appearance Overall: in no acute distress 04/20/2016 None Full Exam - General 1994 Constitutional general appearance Overall: well nourished 04/20/2016 None Full Exam - General 1994 Constitutional general appearance Evidence of Distress: anxious 04/20/2016 None Full Exam - General 1994 Constitutional general appearance Assistive Device: crutches 04/20/2016 None Full Exam - General 1994 Respiratory auscultation Overall: breath sounds clear bilaterally 04/20/2016 None Full Exam - General 1994 Respiratory respiratory effort/rhythm Overall: no retractions 04/20/2016 None Full Exam - General 1994 Respiratory respiratory effort/rhythm Overall: normal rate 04/20/2016 None Full Exam - General 1994 Cardiovascular auscultation of heart Overall: regular rate 04/20/2016 None Full Exam - General 1994 Cardiovascular auscultation of heart Overall: normal heart sounds 04/20/2016 None Full Exam - General 1994 Cardiovascular auscultation of heart Overall: no murmurs 04/20/2016 None Full Exam - General 1994 Abdomen abdominal exam Overall: no tenderness 04/20/2016 None Full Exam - General 1994 Abdomen abdominal exam Overall: normal bowel sounds 04/20/2016 None Full Exam - General 1994 Musculoskeletal lower extremity Overall: full strength in LLE 04/20/2016 None Full Exam - General 1994 Musculoskeletal lower extremity Overall: normal LLE bulk and tone 04/20/2016 None Full Exam - General 1994 Musculoskeletal spine, ribs and pelvis Posture: lordosis 04/20/2016 None Full Exam - General 1994 Neurologic deep tendon reflexes Overall: deep tendon reflexes intact 04/20/2016 None Full Exam - General 1994 Neurologic gait Overall: no ataxia, no unsteadiness 04/20/2016 None Full Exam - General 1994 Neurologic coordination Overall: no tremors 04/20/2016 None Full Exam - General 1994 Neurologic cranial nerves Overall: crainial nerves 2 - 12 grossly intact 04/20/2016 None Full Exam - General 1994 Psychiatric orientation/consciousness Overall: oriented to person, place and time 04/20/2016 None Full Exam - General 1994 Psychiatric mood and affect Overall: normal mood and affect 04/20/2016 None Full Exam - General 1994 Psychiatric mood and affect Mood: anxious 04/20/2016 None Full Exam - General 1994 Psychiatric appearance Grooming: disheveled 04/20/2016 None Full Exam - General 1994 Constitutional general appearance Development: appears older than stated age 1003/17/2016 None Full Exam - General 1994 Constitutional general appearance Overall: well developed 03/17/2016 None Full Exam - General 1994 Constitutional general appearance Overall: in no acute distress 03/17/2016 None Full Exam - General 1994 Constitutional general appearance Overall: well nourished 03/17/2016 None Full Exam - General 1994 Constitutional general appearance Evidence of Distress: anxious 03/17/2016 None Full Exam - General 1994 Respiratory auscultation Overall: breath sounds clear bilaterally 03/17/2016 None Full Exam - General 1994 Respiratory respiratory effort/rhythm Overall: no retractions 03/17/2016 None Full Exam - General 1994 Respiratory respiratory effort/rhythm Overall: normal rate 03/17/2016 None Full Exam - General 1994 Cardiovascular auscultation of heart Overall: regular rate 03/17/2016 None Full Exam - General 1994 Cardiovascular auscultation of heart Overall: normal heart sounds 03/17/2016 None Full Exam - General 1994 Cardiovascular auscultation of heart Overall: no murmurs 03/17/2016 None Full Exam - General 1994 Abdomen abdominal exam Overall: no tenderness 03/17/2016 None Full Exam - General 1994 Abdomen abdominal exam Overall: normal bowel sounds 03/17/2016 None Full Exam - General 1994 Musculoskeletal lower extremity Overall: full strength in LLE 03/17/2016 None Full Exam - General 1994 Musculoskeletal lower extremity Overall: normal LLE bulk and tone 03/17/2016 None Full Exam - General 1994 Musculoskeletal spine, ribs and pelvis Posture: lordosis 03/17/2016 None Full Exam - General 1994 Neurologic deep tendon reflexes Overall: deep tendon reflexes intact 03/17/2016 None Full Exam - General 1994 Neurologic gait Overall: no ataxia, no unsteadiness 03/17/2016 None Full Exam - General 1994 Neurologic coordination Overall: no tremors 03/17/2016 None Full Exam - General 1994 Neurologic cranial nerves Overall: crainial nerves 2 - 12 grossly intact 03/17/2016 None Full Exam - General 1994 Psychiatric orientation/consciousness Overall: oriented to person, place and time 03/17/2016 None Full Exam - General 1994 Psychiatric mood and affect Overall: normal mood and affect 03/17/2016 None Full Exam - General 1994 Psychiatric mood and affect Mood: anxious 03/17/2016 None Full Exam - General 1994 Psychiatric appearance Grooming: disheveled 03/17/2016 None Full Exam - General 1994 Constitutional general appearance Assistive Device: crutches 03/17/2016 None Full Exam - General 1994 Constitutional general appearance Development: appears older than stated age 0903/05/2016 None Full Exam - General 1994 Constitutional general appearance Overall: well developed 03/05/2016 None Full Exam - General 1994 Constitutional general appearance Overall: in no acute distress 03/05/2016 None Full Exam - General 1994 Constitutional general appearance Overall: well nourished 03/05/2016 None Full Exam - General 1994 Constitutional general appearance Evidence of Distress: anxious 03/05/2016 None Full Exam - General 1994 Constitutional general appearance Assistive Device: wheelchair 03/05/2016 None Full Exam - General 1994 Respiratory auscultation Overall: breath sounds clear bilaterally 03/05/2016 None Full Exam - General 1994 Respiratory respiratory effort/rhythm Overall: no retractions 03/05/2016 None Full Exam - General 1994 Respiratory respiratory effort/rhythm Overall: normal rate 03/05/2016 None Full Exam - General 1994 Cardiovascular auscultation of heart Overall: regular rate 03/05/2016 None Full Exam - General 1994 Cardiovascular auscultation of heart Overall: normal heart sounds 03/05/2016 None Full Exam - General 1994 Musculoskeletal lower extremity Overall: full strength in LLE 03/05/2016 None Full Exam - General 1994 Musculoskeletal lower extremity Overall: normal LLE bulk and tone 03/05/2016 None Full Exam - General 1994 Musculoskeletal spine, ribs and pelvis Posture: lordosis 03/05/2016 None Full Exam - General 1994 Neurologic gait Overall: no ataxia, no unsteadiness 03/05/2016 None Full Exam - General 1994 Neurologic coordination Overall: no tremors 03/05/2016 None Full Exam - General 1994 Neurologic cranial nerves Overall: crainial nerves 2 - 12 grossly intact 03/05/2016 None Full Exam - General 1994 Psychiatric orientation/consciousness Overall: oriented to person, place and time 03/05/2016 None Full Exam - General 1994 Psychiatric mood and affect Mood: anxious 03/05/2016 None Full Exam - General 1994 Psychiatric appearance Grooming: disheveled 03/05/2016 None Full Exam - General 1994 Psychiatric mood and affect Mood: labile mood 03/05/2016 None Full Exam - General 1994 Psychiatric mood and affect Mood: irritable 03/05/2016 None Full Exam - General 1994 Constitutional general appearance Development: appears older than stated age 0902/28/2016 None Full Exam - General 1994 Constitutional general appearance Overall: well developed 02/28/2016 None Full Exam - General 1994 Constitutional general appearance Overall: in no acute distress 02/28/2016 None Full Exam - General 1994 Constitutional general appearance Overall: well nourished 02/28/2016 None Full Exam - General 1994 Constitutional general appearance Evidence of Distress: anxious 02/28/2016 None Full Exam - General 1994 Respiratory auscultation Overall: breath sounds clear bilaterally 02/28/2016 None Full Exam - General 1994 Respiratory respiratory effort/rhythm Overall: no retractions 02/28/2016 None Full Exam - General 1994 Respiratory respiratory effort/rhythm Overall: normal rate 02/28/2016 None Full Exam - General 1994 Cardiovascular auscultation of heart Overall: regular rate 02/28/2016 None Full Exam - General 1994 Cardiovascular auscultation of heart Overall: normal heart sounds 02/28/2016 None Full Exam - General 1994 Cardiovascular auscultation of heart Overall: no murmurs 02/28/2016 None Full Exam - General 1994 Abdomen abdominal exam Overall: no tenderness 02/28/2016 None Full Exam - General 1994 Abdomen abdominal exam Overall: normal bowel sounds 02/28/2016 None Full Exam - General 1994 Musculoskeletal lower extremity Overall: full strength in LLE 02/28/2016 None Full Exam - General 1994 Musculoskeletal lower extremity Overall: normal LLE bulk and tone 02/28/2016 None Full Exam - General 1994 Musculoskeletal spine, ribs and pelvis Posture: lordosis 02/28/2016 None Full Exam - General 1994 Neurologic deep tendon reflexes Overall: deep tendon reflexes intact 02/28/2016 None Full Exam - General 1994 Neurologic gait Overall: no ataxia, no unsteadiness 02/28/2016 None Full Exam - General 1994 Neurologic coordination Overall: no tremors 02/28/2016 None Full Exam - General 1994 Neurologic cranial nerves Overall: crainial nerves 2 - 12 grossly intact 02/28/2016 None Full Exam - General 1994 Psychiatric orientation/consciousness Overall: oriented to person, place and time 02/28/2016 None Full Exam - General 1994 Psychiatric mood and affect Overall: normal mood and affect 02/28/2016 None Full Exam - General 1994 Psychiatric mood and affect Mood: anxious 02/28/2016 None Full Exam - General 1994 Psychiatric appearance Grooming: disheveled 02/28/2016 None Full Exam - General 1994 Constitutional general appearance Assistive Device: wheelchair 02/28/2016 None Full Exam - General 1994 Constitutional general appearance Development: appears older than stated age 0902/13/2016 None Full Exam - General 1994 Constitutional general appearance Overall: well developed 02/13/2016 None Full Exam - General 1994 Constitutional general appearance Overall: in no acute distress 02/13/2016 None Full Exam - General 1994 Constitutional general appearance Overall: well nourished 02/13/2016 None Full Exam - General 1994 Constitutional general appearance Evidence of Distress: anxious 02/13/2016 None Full Exam - General 1994 Constitutional general appearance Assistive Device: crutches 02/13/2016 None Full Exam - General 1994 Respiratory auscultation Overall: breath sounds clear bilaterally 02/13/2016 None Full Exam - General 1994 Respiratory respiratory effort/rhythm Overall: no retractions 02/13/2016 None Full Exam - General 1994 Respiratory respiratory effort/rhythm Overall: normal rate 02/13/2016 None Full Exam - General 1994 Cardiovascular auscultation of heart Overall: regular rate 02/13/2016 None Full Exam - General 1994 Cardiovascular auscultation of heart Overall: normal heart sounds 02/13/2016 None Full Exam - General 1994 Cardiovascular auscultation of heart Overall: no murmurs 02/13/2016 None Full Exam - General 1994 Abdomen abdominal exam Overall: no tenderness 02/13/2016 None Full Exam - General 1994 Abdomen abdominal exam Overall: normal bowel sounds 02/13/2016 None Full Exam - General 1994 Musculoskeletal lower extremity Overall: full strength in LLE 02/13/2016 None Full Exam - General 1994 Musculoskeletal lower extremity Overall: normal LLE bulk and tone 02/13/2016 None Full Exam - General 1994 Musculoskeletal spine, ribs and pelvis Posture: lordosis 02/13/2016 None Full Exam - General 1994 Neurologic deep tendon reflexes Overall: deep tendon reflexes intact 02/13/2016 None Full Exam - General 1994 Neurologic gait Overall: no ataxia, no unsteadiness 02/13/2016 None Full Exam - General 1994 Neurologic coordination Overall: no tremors 02/13/2016 None Full Exam - General 1994 Neurologic cranial nerves Overall: crainial nerves 2 - 12 grossly intact 02/13/2016 None Full Exam - General 1994 Psychiatric orientation/consciousness Overall: oriented to person, place and time 02/13/2016 None Full Exam - General 1994 Psychiatric mood and affect Overall: normal mood and affect 02/13/2016 None Full Exam - General 1994 Psychiatric mood and affect Mood: anxious 02/13/2016 None Full Exam - General 1994 Psychiatric appearance Grooming: disheveled 02/13/2016 None Full Exam - General 1994 Constitutional general appearance Development: appears older than stated age 0308/15/2015 None Full Exam - General 1994 Constitutional general appearance Overall: well developed 08/15/2015 None Full Exam - General 1994 Constitutional general appearance Overall: in no acute distress 08/15/2015 None Full Exam - General 1994 Constitutional general appearance Overall: well nourished 08/15/2015 None Full Exam - General 1994 Constitutional general appearance Evidence of Distress: anxious 08/15/2015 None Full Exam - General 1994 Constitutional general appearance Assistive Device: crutches 08/15/2015 None Full Exam - General 1994 Neck inspection of neck Overall: normal size 08/15/2015 None Full Exam - General 1994 Neck inspection of neck Overall: normal appearance 08/15/2015 None Full Exam - General 1994 Neck inspection of neck Overall: no masses 08/15/2015 None Full Exam - General 1994 Neck inspection of neck Overall: absence of swelling 08/15/2015 None Full Exam - General 1994 Respiratory auscultation Overall: breath sounds clear bilaterally 08/15/2015 None Full Exam - General 1994 Respiratory respiratory effort/rhythm Overall: no retractions 08/15/2015 None Full Exam - General 1994 Respiratory respiratory effort/rhythm Overall: normal rate 08/15/2015 None Full Exam - General 1994 Cardiovascular auscultation of heart Overall: regular rate 08/15/2015 None Full Exam - General 1994 Cardiovascular auscultation of heart Overall: normal heart sounds 08/15/2015 None Full Exam - General 1994 Cardiovascular auscultation of heart Overall: no murmurs 08/15/2015 None Full Exam - General 1994 Abdomen abdominal exam Overall: no tenderness 08/15/2015 None Full Exam - General 1994 Abdomen abdominal exam Overall: normal bowel sounds 08/15/2015 None Full Exam - General 1994 Musculoskeletal lower extremity Overall: full strength in LLE 08/15/2015 None Full Exam - General 1994 Musculoskeletal lower extremity Overall: normal LLE bulk and tone 08/15/2015 None Full Exam - General 1994 Musculoskeletal spine, ribs and pelvis Posture: lordosis 08/15/2015 None Full Exam - General 1994 Musculoskeletal head and neck Cervical Spine: tender 08/15/2015 None Full Exam - General 1994 Musculoskeletal head and neck Cervical Spine: full flexion 08/15/2015 None Full Exam - General 1994 Musculoskeletal head and neck Cervical Spine: full extension 08/15/2015 None Full Exam - General 1994 Musculoskeletal head and neck Cervical Spine: full rotation 08/15/2015 None Full Exam - General 1994 Musculoskeletal head and neck Cervical Spine: full left lateral bending 08/15/2015 None Full Exam - General 1994 Musculoskeletal head and neck Cervical Spine: full right lateral bending 08/15/2015 None Full Exam - General 1994 Neurologic deep tendon reflexes Overall: deep tendon reflexes intact 08/15/2015 None Full Exam - General 1994 Neurologic gait Overall: no ataxia, no unsteadiness 08/15/2015 None Full Exam - General 1994 Neurologic coordination Overall: no tremors 08/15/2015 None Full Exam - General 1994 Neurologic cranial nerves Overall: crainial nerves 2 - 12 grossly intact 08/15/2015 None Full Exam - General 1994 Psychiatric orientation/consciousness Overall: oriented to person, place and time 08/15/2015 None Full Exam - General 1994 Psychiatric mood and affect Overall: normal mood and affect 08/15/2015 None Full Exam - General 1994 Psychiatric mood and affect Mood: anxious 08/15/2015 None Full Exam - General 1994 Psychiatric appearance Grooming: disheveled 08/15/2015 None Full Exam - General 1994 Constitutional general appearance Development: appears older than stated age 0207/25/2015 None Full Exam - General 1994 Constitutional general appearance Overall: well developed 07/25/2015 None Full Exam - General 1994 Constitutional general appearance Overall: in no acute distress 07/25/2015 None Full Exam - General 1994 Constitutional general appearance Overall: well nourished 07/25/2015 None Full Exam - General 1994 Constitutional general appearance Evidence of Distress: anxious 07/25/2015 None Full Exam - General 1994 Constitutional general appearance Assistive Device: crutches 07/25/2015 None Full Exam - General 1994 Respiratory auscultation Overall: breath sounds clear bilaterally 07/25/2015 None Full Exam - General 1994 Respiratory respiratory effort/rhythm Overall: no retractions 07/25/2015 None Full Exam - General 1994 Respiratory respiratory effort/rhythm Overall: normal rate 07/25/2015 None Full Exam - General 1994 Cardiovascular auscultation of heart Overall: regular rate 07/25/2015 None Full Exam - General 1994 Cardiovascular auscultation of heart Overall: normal heart sounds 07/25/2015 None Full Exam - General 1994 Cardiovascular auscultation of heart Overall: no murmurs 07/25/2015 None Full Exam - General 1994 Abdomen abdominal exam Overall: no tenderness 07/25/2015 None Full Exam - General 1994 Abdomen abdominal exam Overall: normal bowel sounds 07/25/2015 None Full Exam - General 1994 Musculoskeletal lower extremity Overall: full strength in LLE 07/25/2015 None Full Exam - General 1994 Musculoskeletal lower extremity Overall: normal LLE bulk and tone 07/25/2015 None Full Exam - General 1994 Musculoskeletal spine, ribs and pelvis Posture: lordosis 07/25/2015 None Full Exam - General 1994 Neurologic deep tendon reflexes Overall: deep tendon reflexes intact 07/25/2015 None Full Exam - General 1994 Neurologic gait Overall: no ataxia, no unsteadiness 07/25/2015 None Full Exam - General 1994 Neurologic coordination Overall: no tremors 07/25/2015 None Full Exam - General 1994 Neurologic cranial nerves Overall: crainial nerves 2 - 12 grossly intact 07/25/2015 None Full Exam - General 1994 Psychiatric orientation/consciousness Overall: oriented to person, place and time 07/25/2015 None Full Exam - General 1994 Psychiatric mood and affect Overall: normal mood and affect 07/25/2015 None Full Exam - General 1994 Psychiatric mood and affect Mood: anxious 07/25/2015 None Full Exam - General 1994 Psychiatric appearance Grooming: disheveled 07/25/2015 None Full Exam - General 1994 Neck inspection of neck Overall: normal size 07/25/2015 None Full Exam - General 1994 Neck inspection of neck Overall: normal appearance 07/25/2015 None Full Exam - General 1994 Neck inspection of neck Overall: no masses 07/25/2015 None Full Exam - General 1994 Neck inspection of neck Overall: absence of swelling 07/25/2015 None Full Exam - General 1994 Musculoskeletal head and neck Cervical Spine: tender 07/25/2015 None Full Exam - General 1994 Musculoskeletal head and neck Cervical Spine: full rotation 07/25/2015 None Full Exam - General 1994 Musculoskeletal head and neck Cervical Spine: full extension 07/25/2015 None Full Exam - General 1994 Musculoskeletal head and neck Cervical Spine: full flexion 07/25/2015 None Full Exam - General 1994 Musculoskeletal head and neck Cervical Spine: full right lateral bending 07/25/2015 None Full Exam - General 1994 Musculoskeletal head and neck Cervical Spine: full left lateral bending 07/25/2015 None Full Exam - General 1994 Constitutional general appearance Development: appears older than stated age 0106/25/2015 None Full Exam - General 1994 Constitutional general appearance Overall: well developed 06/25/2015 None Full Exam - General 1994 Constitutional general appearance Overall: in no acute distress 06/25/2015 None Full Exam - General 1994 Constitutional general appearance Overall: well nourished 06/25/2015 None Full Exam - General 1994 Constitutional general appearance Assistive Device: crutches 06/25/2015 None Full Exam - General 1994 Respiratory auscultation Overall: breath sounds clear bilaterally 06/25/2015 None Full Exam - General 1994 Respiratory respiratory effort/rhythm Overall: no retractions 06/25/2015 None Full Exam - General 1994 Respiratory respiratory effort/rhythm Overall: normal rate 06/25/2015 None Full Exam - General 1994 Cardiovascular auscultation of heart Overall: regular rate 06/25/2015 None Full Exam - General 1994 Cardiovascular auscultation of heart Overall: normal heart sounds 06/25/2015 None Full Exam - General 1994 Cardiovascular auscultation of heart Overall: no murmurs 06/25/2015 None Full Exam - General 1994 Abdomen abdominal exam Overall: no tenderness 06/25/2015 None Full Exam - General 1994 Abdomen abdominal exam Overall: normal bowel sounds 06/25/2015 None Full Exam - General 1994 Musculoskeletal spine, ribs and pelvis Posture: lordosis 06/25/2015 None Full Exam - General 1994 Neurologic deep tendon reflexes Overall: deep tendon reflexes intact 06/25/2015 None Full Exam - General 1994 Neurologic gait Overall: no ataxia, no unsteadiness 06/25/2015 None Full Exam - General 1994 Neurologic coordination Overall: no tremors 06/25/2015 None Full Exam - General 1994 Neurologic cranial nerves Overall: crainial nerves 2 - 12 grossly intact 06/25/2015 None Full Exam - General 1994 Psychiatric orientation/consciousness Overall: oriented to person, place and time 06/25/2015 None Full Exam - General 1994 Psychiatric mood and affect Overall: normal mood and affect 06/25/2015 None Full Exam - General 1994 Constitutional general appearance Evidence of Distress: anxious 06/25/2015 None Full Exam - General 1994 Musculoskeletal lower extremity ROM - ankle: pain with dorsi flexion 06/25/2015 None Full Exam - General 1994 Musculoskeletal lower extremity ROM - ankle: pain with plantar flexion 06/25/2015 None Full Exam - General 1994 Musculoskeletal lower extremity Overall: normal LLE bulk and tone 06/25/2015 None Full Exam - General 1994 Musculoskeletal lower extremity Overall: full strength in LLE 06/25/2015 None Full Exam - General 1994 Psychiatric mood and affect Mood: anxious 06/25/2015 None Full Exam - General 1994 Psychiatric appearance Grooming: disheveled 06/25/2015 None Full Exam - General 1994 Constitutional general appearance Development: appears older than stated age 0106/10/2015 None Full Exam - General 1994 Constitutional general appearance Overall: well developed 06/10/2015 None Full Exam - General 1994 Constitutional general appearance Overall: in no acute distress 06/10/2015 None Full Exam - General 1994 Constitutional general appearance Overall: well nourished 06/10/2015 None Full Exam - General 1994 Eyes pupils and irises Overall: pupils equal, round, reactive to light and accomodation 06/10/2015 None Full Exam - General 1994 Ears/Nose/Throat otoscopic exam Overall: external auditory canals clear 06/10/2015 None Full Exam - General 1994 Ears/Nose/Throat otoscopic exam Overall: tympanic membranes clear 06/10/2015 None Full Exam - General 1994 Ears/Nose/Throat oral cavity/pharynx/larynx Overall: oral mucosa clear 06/10/2015 None Full Exam - General 1994 Ears/Nose/Throat oral cavity/pharynx/larynx Overall: oropharyngeal mucosa clear 06/10/2015 None Full Exam - General 1994 Ears/Nose/Throat oral cavity/pharynx/larynx Overall: no masses 06/10/2015 None Full Exam - General 1994 Respiratory auscultation Overall: breath sounds clear bilaterally 06/10/2015 None Full Exam - General 1994 Respiratory respiratory effort/rhythm Overall: no retractions 06/10/2015 None Full Exam - General 1994 Respiratory respiratory effort/rhythm Overall: normal rate 06/10/2015 None Full Exam - General 1994 Cardiovascular auscultation of heart Overall: regular rate 06/10/2015 None Full Exam - General 1994 Cardiovascular auscultation of heart Overall: normal heart sounds 06/10/2015 None Full Exam - General 1994 Cardiovascular auscultation of heart Overall: no murmurs 06/10/2015 None Full Exam - General 1994 Abdomen abdominal exam Overall: no tenderness 06/10/2015 None Full Exam - General 1994 Abdomen abdominal exam Overall: normal bowel sounds 06/10/2015 None Full Exam - General 1994 Musculoskeletal spine, ribs and pelvis Posture: lordosis 06/10/2015 None Full Exam - General 1994 Musculoskeletal gait and station Overall: normal gait 06/10/2015 None Full Exam - General 1994 Musculoskeletal gait and station Overall: normal station 06/10/2015 None Full Exam - General 1994 Neurologic deep tendon reflexes Overall: deep tendon reflexes intact 06/10/2015 None Full Exam - General 1994 Neurologic gait Overall: no ataxia, no unsteadiness 06/10/2015 None Full Exam - General 1994 Neurologic coordination Overall: no tremors 06/10/2015 None Full Exam - General 1994 Neurologic cranial nerves Overall: crainial nerves 2 - 12 grossly intact 06/10/2015 None Full Exam - General 1994 Psychiatric orientation/consciousness Overall: oriented to person, place and time 06/10/2015 None Full Exam - General 1994 Psychiatric mood and affect Overall: normal mood and affect 06/10/2015 None Full Exam - General 1994 Constitutional general appearance Assistive Device: crutches 06/10/2015 None Full Exam - General 1994 Musculoskeletal lower extremity Inspection - ankle: swelling @ medial malleolus 06/10/2015 bruising also noted Full Exam - General 1994 Constitutional general appearance Development: appears older than stated age 1205/08/2015 None Full Exam - General 1994 Constitutional general appearance Overall: well developed 05/08/2015 None Full Exam - General 1994 Constitutional general appearance Overall: in no acute distress 05/08/2015 None Full Exam - General 1994 Constitutional general appearance Overall: well nourished 05/08/2015 None Full Exam - General 1994 Eyes pupils and irises Overall: pupils equal, round, reactive to light and accomodation 05/08/2015 None Full Exam - General 1994 Ears/Nose/Throat otoscopic exam Overall: external auditory canals clear 05/08/2015 None Full Exam - General 1994 Ears/Nose/Throat otoscopic exam Overall: tympanic membranes clear 05/08/2015 None Full Exam - General 1994 Ears/Nose/Throat oral cavity/pharynx/larynx Overall: oral mucosa clear 05/08/2015 None Full Exam - General 1994 Ears/Nose/Throat oral cavity/pharynx/larynx Overall: oropharyngeal mucosa clear 05/08/2015 None Full Exam - General 1994 Ears/Nose/Throat oral cavity/pharynx/larynx Overall: no masses 05/08/2015 None Full Exam - General 1994 Respiratory auscultation Overall: breath sounds clear bilaterally 05/08/2015 None Full Exam - General 1994 Respiratory respiratory effort/rhythm Overall: no retractions 05/08/2015 None Full Exam - General 1994 Respiratory respiratory effort/rhythm Overall: normal rate 05/08/2015 None Full Exam - General 1994 Cardiovascular auscultation of heart Overall: regular rate 05/08/2015 None Full Exam - General 1994 Cardiovascular auscultation of heart Overall: normal heart sounds 05/08/2015 None Full Exam - General 1994 Cardiovascular auscultation of heart Overall: no murmurs 05/08/2015 None Full Exam - General 1994 Abdomen abdominal exam Overall: no tenderness 05/08/2015 None Full Exam - General 1994 Abdomen abdominal exam Overall: normal bowel sounds 05/08/2015 None Full Exam - General 1994 Musculoskeletal spine, ribs and pelvis Posture: lordosis 05/08/2015 None Full Exam - General 1994 Musculoskeletal gait and station Overall: normal gait 05/08/2015 None Full Exam - General 1994 Musculoskeletal gait and station Overall: normal station 05/08/2015 None Full Exam - General 1994 Neurologic deep tendon reflexes Overall: deep tendon reflexes intact 05/08/2015 None Full Exam - General 1994 Neurologic gait Overall: no ataxia, no unsteadiness 05/08/2015 None Full Exam - General 1994 Neurologic coordination Overall: no tremors 05/08/2015 None Full Exam - General 1994 Neurologic cranial nerves Overall: crainial nerves 2 - 12 grossly intact 05/08/2015 None Full Exam - General 1994 Psychiatric orientation/consciousness Overall: oriented to person, place and time 05/08/2015 None Full Exam - General 1994 Psychiatric mood and affect Overall: normal mood and affect 05/08/2015 None Full Exam - General 1994 Constitutional general appearance Assistive Device: walker 05/08/2015 None Full Exam - General 1994 Constitutional general appearance Development: appears older than stated age 1003/26/2015 None Full Exam - General 1994 Constitutional general appearance Overall: well developed 03/26/2015 None Full Exam - General 1994 Constitutional general appearance Overall: well nourished 03/26/2015 None Full Exam - General 1994 Eyes pupils and irises Overall: pupils equal, round, reactive to light and accomodation 03/26/2015 None Full Exam - General 1994 Ears/Nose/Throat otoscopic exam Overall: external auditory canals clear 03/26/2015 None Full Exam - General 1994 Ears/Nose/Throat otoscopic exam Overall: tympanic membranes clear 03/26/2015 None Full Exam - General 1994 Ears/Nose/Throat oral cavity/pharynx/larynx Overall: oral mucosa clear 03/26/2015 None Full Exam - General 1994 Ears/Nose/Throat oral cavity/pharynx/larynx Overall: oropharyngeal mucosa clear 03/26/2015 None Full Exam - General 1994 Ears/Nose/Throat oral cavity/pharynx/larynx Overall: no masses 03/26/2015 None Full Exam - General 1994 Respiratory auscultation Overall: breath sounds clear bilaterally 03/26/2015 None Full Exam - General 1994 Respiratory respiratory effort/rhythm Overall: no retractions 03/26/2015 None Full Exam - General 1994 Respiratory respiratory effort/rhythm Overall: normal rate 03/26/2015 None Full Exam - General 1994 Cardiovascular auscultation of heart Overall: regular rate 03/26/2015 None Full Exam - General 1994 Cardiovascular auscultation of heart Overall: normal heart sounds 03/26/2015 None Full Exam - General 1994 Cardiovascular auscultation of heart Overall: no murmurs 03/26/2015 None Full Exam - General 1994 Abdomen abdominal exam Overall: no tenderness 03/26/2015 None Full Exam - General 1994 Abdomen abdominal exam Overall: normal bowel sounds 03/26/2015 None Full Exam - General 1994 Musculoskeletal spine, ribs and pelvis Posture: lordosis 03/26/2015 None Full Exam - General 1994 Musculoskeletal gait and station Overall: normal gait 03/26/2015 None Full Exam - General 1994 Musculoskeletal gait and station Overall: normal station 03/26/2015 None Full Exam - General 1994 Neurologic gait Overall: no ataxia, no unsteadiness 03/26/2015 None Full Exam - General 1994 Neurologic coordination Overall: no tremors 03/26/2015 None Full Exam - General 1994 Neurologic cranial nerves Overall: crainial nerves 2 - 12 grossly intact 03/26/2015 None Full Exam - General 1994 Psychiatric orientation/consciousness Overall: oriented to person, place and time 03/26/2015 None Full Exam - General 1994 Psychiatric mood and affect Overall: normal mood and affect 03/26/2015 None Full Exam - General 1994 Constitutional general appearance Overall: in no acute distress 03/26/2015 None Full Exam - General 1994 Constitutional general appearance Development: appears older than stated age 1003/15/2015 None Full Exam - General 1994 Constitutional general appearance Overall: well developed 03/15/2015 None Full Exam - General 1994 Constitutional general appearance Overall: in no acute distress 03/15/2015 None Full Exam - General 1994 Constitutional general appearance Overall: well nourished 03/15/2015 None Full Exam - General 1994 Eyes pupils and irises Overall: pupils equal, round, reactive to light and accomodation 03/15/2015 None Full Exam - General 1994 Ears/Nose/Throat otoscopic exam Overall: external auditory canals clear 03/15/2015 None Full Exam - General 1994 Ears/Nose/Throat otoscopic exam Overall: tympanic membranes clear 03/15/2015 None Full Exam - General 1994 Ears/Nose/Throat oral cavity/pharynx/larynx Overall: oral mucosa clear 03/15/2015 None Full Exam - General 1994 Ears/Nose/Throat oral cavity/pharynx/larynx Overall: oropharyngeal mucosa clear 03/15/2015 None Full Exam - General 1994 Ears/Nose/Throat oral cavity/pharynx/larynx Overall: no masses 03/15/2015 None Full Exam - General 1994 Respiratory auscultation Overall: breath sounds clear bilaterally 03/15/2015 None Full Exam - General 1994 Respiratory respiratory effort/rhythm Overall: no retractions 03/15/2015 None Full Exam - General 1994 Respiratory respiratory effort/rhythm Overall: normal rate 03/15/2015 None Full Exam - General 1994 Cardiovascular auscultation of heart Overall: regular rate 03/15/2015 None Full Exam - General 1994 Cardiovascular auscultation of heart Overall: normal heart sounds 03/15/2015 None Full Exam - General 1994 Cardiovascular auscultation of heart Overall: no murmurs 03/15/2015 None Full Exam - General 1994 Abdomen abdominal exam Overall: no tenderness 03/15/2015 None Full Exam - General 1994 Abdomen abdominal exam Overall: normal bowel sounds 03/15/2015 None Full Exam - General 1994 Musculoskeletal spine, ribs and pelvis Posture: lordosis 03/15/2015 None Full Exam - General 1994 Musculoskeletal gait and station Overall: normal gait 03/15/2015 None Full Exam - General 1994 Musculoskeletal gait and station Overall: normal station 03/15/2015 None Full Exam - General 1994 Neurologic gait Overall: no ataxia, no unsteadiness 03/15/2015 None Full Exam - General 1994 Neurologic coordination Overall: no tremors 03/15/2015 None Full Exam - General 1994 Neurologic cranial nerves Overall: crainial nerves 2 - 12 grossly intact 03/15/2015 None Full Exam - General 1994 Psychiatric orientation/consciousness Overall: oriented to person, place and time 03/15/2015 None Full Exam - General 1994 Psychiatric mood and affect Overall: normal mood and affect 03/15/2015 None Full Exam - General 1994 Constitutional general appearance Development: appears older than stated age 0801/10/2015 None Full Exam - General 1994 Constitutional general appearance Overall: well developed 01/10/2015 None Full Exam - General 1994 Constitutional general appearance Overall: in no acute distress 01/10/2015 None Full Exam - General 1994 Constitutional general appearance Overall: well nourished 01/10/2015 None Full Exam - General 1994 Psychiatric mood and affect Overall: normal mood and affect 01/10/2015 None Full Exam - General 1994 Psychiatric orientation/consciousness Overall: oriented to person, place and time 01/10/2015 None Full Exam - General 1994 Neurologic cranial nerves Overall: crainial nerves 2 - 12 grossly intact 01/10/2015 None Full Exam - General 1994 Integument inspection of skin Location: left leg 01/10/2015 abrasion left knee Full Exam - General 1994 Constitutional general appearance Development: appears older than stated age 0712/21/2014 None Full Exam - General 1994 Constitutional general appearance Overall: well developed 12/21/2014 None Full Exam - General 1994 Constitutional general appearance Overall: in no acute distress 12/21/2014 None Full Exam - General 1994 Constitutional general appearance Overall: well nourished 12/21/2014 None Full Exam - General 1994 Eyes pupils and irises Overall: pupils equal, round, reactive to light and accomodation 12/21/2014 None Full Exam - General 1994 Ears/Nose/Throat otoscopic exam Overall: external auditory canals clear 12/21/2014 None Full Exam - General 1994 Ears/Nose/Throat otoscopic exam Overall: tympanic membranes clear 12/21/2014 None Full Exam - General 1994 Ears/Nose/Throat oral cavity/pharynx/larynx Overall: oral mucosa clear 12/21/2014 None Full Exam - General 1994 Ears/Nose/Throat oral cavity/pharynx/larynx Overall: oropharyngeal mucosa clear 12/21/2014 None Full Exam - General 1994 Ears/Nose/Throat oral cavity/pharynx/larynx Overall: no masses 12/21/2014 None Full Exam - General 1994 Respiratory auscultation Overall: breath sounds clear bilaterally 12/21/2014 None Full Exam - General 1994 Respiratory respiratory effort/rhythm Overall: no retractions 12/21/2014 None Full Exam - General 1994 Respiratory respiratory effort/rhythm Overall: normal rate 12/21/2014 None Full Exam - General 1994 Cardiovascular auscultation of heart Overall: regular rate 12/21/2014 None Full Exam - General 1994 Cardiovascular auscultation of heart Overall: normal heart sounds 12/21/2014 None Full Exam - General 1994 Cardiovascular auscultation of heart Overall: no murmurs 12/21/2014 None Full Exam - General 1994 Abdomen abdominal exam Overall: no tenderness 12/21/2014 None Full Exam - General 1994 Abdomen abdominal exam Overall: normal bowel sounds 12/21/2014 None Full Exam - General 1994 Musculoskeletal spine, ribs and pelvis Posture: lordosis 12/21/2014 None Full Exam - General 1994 Musculoskeletal gait and station Overall: normal gait 12/21/2014 None Full Exam - General 1994 Musculoskeletal gait and station Overall: normal station 12/21/2014 None Full Exam - General 1994 Neurologic deep tendon reflexes Overall: deep tendon reflexes intact 12/21/2014 None Full Exam - General 1994 Neurologic gait Overall: no ataxia, no unsteadiness 12/21/2014 None Full Exam - General 1994 Neurologic coordination Overall: no tremors 12/21/2014 None Full Exam - General 1994 Neurologic cranial nerves Overall: crainial nerves 2 - 12 grossly intact 12/21/2014 None Full Exam - General 1994 Psychiatric orientation/consciousness Overall: oriented to person, place and time 12/21/2014 None Full Exam - General 1994 Psychiatric mood and affect Overall: normal mood and affect 12/21/2014 None Full Exam - General 1994 Constitutional general appearance Development: appears older than stated age 0510/05/2014 None Full Exam - General 1994 Constitutional general appearance Overall: well developed 10/05/2014 None Full Exam - General 1994 Constitutional general appearance Overall: in no acute distress 10/05/2014 None Full Exam - General 1994 Constitutional general appearance Overall: well nourished 10/05/2014 None Full Exam - General 1994 Eyes pupils and irises Overall: pupils equal, round, reactive to light and accomodation 10/05/2014 None Full Exam - General 1994 Ears/Nose/Throat otoscopic exam Overall: external auditory canals clear 10/05/2014 None Full Exam - General 1994 Ears/Nose/Throat otoscopic exam Overall: tympanic membranes clear 10/05/2014 None Full Exam - General 1994 Ears/Nose/Throat oral cavity/pharynx/larynx Overall: oral mucosa clear 10/05/2014 None Full Exam - General 1994 Ears/Nose/Throat oral cavity/pharynx/larynx Overall: oropharyngeal mucosa clear 10/05/2014 None Full Exam - General 1994 Ears/Nose/Throat oral cavity/pharynx/larynx Overall: no masses 10/05/2014 None Full Exam - General 1994 Respiratory auscultation Overall: breath sounds clear bilaterally 10/05/2014 None Full Exam - General 1994 Respiratory respiratory effort/rhythm Overall: no retractions 10/05/2014 None Full Exam - General 1994 Respiratory respiratory effort/rhythm Overall: normal rate 10/05/2014 None Full Exam - General 1994 Cardiovascular auscultation of heart Overall: regular rate 10/05/2014 None Full Exam - General 1994 Cardiovascular auscultation of heart Overall: normal heart sounds 10/05/2014 None Full Exam - General 1994 Cardiovascular auscultation of heart Overall: no murmurs 10/05/2014 None Full Exam - General 1994 Abdomen abdominal exam Overall: no tenderness 10/05/2014 None Full Exam - General 1994 Abdomen abdominal exam Overall: normal bowel sounds 10/05/2014 None Full Exam - General 1994 Musculoskeletal spine, ribs and pelvis Posture: lordosis 10/05/2014 None Full Exam - General 1994 Musculoskeletal gait and station Overall: normal gait 10/05/2014 None Full Exam - General 1994 Musculoskeletal gait and station Overall: normal station 10/05/2014 None Full Exam - General 1994 Neurologic deep tendon reflexes Overall: deep tendon reflexes intact 10/05/2014 None Full Exam - General 1994 Neurologic gait Overall: no ataxia, no unsteadiness 10/05/2014 None Full Exam - General 1994 Neurologic coordination Overall: no tremors 10/05/2014 None Full Exam - General 1994 Neurologic cranial nerves Overall: crainial nerves 2 - 12 grossly intact 10/05/2014 None Full Exam - General 1994 Psychiatric orientation/consciousness Overall: oriented to person, place and time 10/05/2014 None Full Exam - General 1994 Psychiatric mood and affect Overall: normal mood and affect 10/05/2014 None Full Exam - General 1994 Constitutional general appearance Development: appears older than stated age 0106/14/2014 None Full Exam - General 1994 Constitutional general appearance Overall: well developed 06/14/2014 None Full Exam - General 1994 Constitutional general appearance Overall: in no acute distress 06/14/2014 None Full Exam - General 1994 Constitutional general appearance Overall: well nourished 06/14/2014 None Full Exam - General 1994 Eyes pupils and irises Overall: pupils equal, round, reactive to light and accomodation 06/14/2014 None Full Exam - General 1994 Ears/Nose/Throat otoscopic exam Overall: external auditory canals clear 06/14/2014 None Full Exam - General 1994 Ears/Nose/Throat otoscopic exam Overall: tympanic membranes clear 06/14/2014 None Full Exam - General 1994 Ears/Nose/Throat oral cavity/pharynx/larynx Overall: oral mucosa clear 06/14/2014 None Full Exam - General 1994 Ears/Nose/Throat oral cavity/pharynx/larynx Overall: oropharyngeal mucosa clear 06/14/2014 None Full Exam - General 1994 Ears/Nose/Throat oral cavity/pharynx/larynx Overall: no masses 06/14/2014 None Full Exam - General 1994 Respiratory auscultation Overall: breath sounds clear bilaterally 06/14/2014 None Full Exam - General 1994 Respiratory respiratory effort/rhythm Overall: no retractions 06/14/2014 None Full Exam - General 1994 Respiratory respiratory effort/rhythm Overall: normal rate 06/14/2014 None Full Exam - General 1994 Cardiovascular auscultation of heart Overall: regular rate 06/14/2014 None Full Exam - General 1994 Cardiovascular auscultation of heart Overall: normal heart sounds 06/14/2014 None Full Exam - General 1994 Cardiovascular auscultation of heart Overall: no murmurs 06/14/2014 None Full Exam - General 1994 Abdomen abdominal exam Overall: no tenderness 06/14/2014 None Full Exam - General 1994 Abdomen abdominal exam Overall: normal bowel sounds 06/14/2014 None Full Exam - General 1994 Musculoskeletal upper extremity Overall: normal shoulder 06/14/2014 None Full Exam - General 1994 Musculoskeletal upper extremity Overall: normal elbow 06/14/2014 None Full Exam - General 1994 Musculoskeletal upper extremity Overall: normal wrist 06/14/2014 None Full Exam - General 1994 Musculoskeletal lower extremity Inspection - knee: a normal exam 06/14/2014 None Full Exam - General 1994 Musculoskeletal lower extremity Palpation - knee: a normal exam 06/14/2014 None Full Exam - General 1994 Musculoskeletal lower extremity ROM - knee: a normal exam 06/14/2014 None Full Exam - General 1994 Musculoskeletal lower extremity Stability - knee: a normal exam 06/14/2014 None Full Exam - General 1994 Musculoskeletal lower extremity Inspection - ankle: a normal exam 06/14/2014 None Full Exam - General 1994 Musculoskeletal lower extremity Palpation - ankle: a normal exam 06/14/2014 None Full Exam - General 1994 Musculoskeletal lower extremity ROM - ankle: a normal exam 06/14/2014 None Full Exam - General 1994 Musculoskeletal lower extremity Stability - ankle: a normal exam 06/14/2014 None Full Exam - General 1994 Musculoskeletal lower extremity Inspection - foot: a normal exam 06/14/2014 None Full Exam - General 1994 Musculoskeletal lower extremity Stability - foot: a normal exam 06/14/2014 None Full Exam - General 1994 Musculoskeletal spine, ribs and pelvis Posture: lordosis 06/14/2014 None Full Exam - General 1994 Musculoskeletal gait and station Overall: normal gait 06/14/2014 None Full Exam - General 1994 Musculoskeletal gait and station Overall: normal station 06/14/2014 None Full Exam - General 1994 Musculoskeletal head and neck Overall: head atraumatic 06/14/2014 None Full Exam - General 1994 Musculoskeletal head and neck Overall: cervical spine benign 06/14/2014 None Full Exam - General 1994 Neurologic deep tendon reflexes Overall: deep tendon reflexes intact 06/14/2014 None Full Exam - General 1994 Neurologic gait Overall: no ataxia, no unsteadiness 06/14/2014 None Full Exam - General 1994 Neurologic coordination Overall: no tremors 06/14/2014 None Full Exam - General 1994 Neurologic cranial nerves Overall: crainial nerves 2 - 12 grossly intact 06/14/2014 None Full Exam - General 1994 Psychiatric orientation/consciousness Overall: oriented to person, place and time 06/14/2014 None Full Exam - General 1994 Psychiatric mood and affect Overall: normal mood and affect 06/14/2014 None Full Exam - General 1994 Constitutional general appearance Development: appears older than stated age 0801/19/2014 None Full Exam - General 1994 Constitutional general appearance Overall: well developed 01/19/2014 None Full Exam - General 1994 Constitutional general appearance Overall: in no acute distress 01/19/2014 None Full Exam - General 1994 Constitutional general appearance Overall: well nourished 01/19/2014 None Full Exam - General 1994 Eyes pupils and irises Overall: pupils equal, round, reactive to light and accomodation 01/19/2014 None Full Exam - General 1994 Ears/Nose/Throat otoscopic exam Overall: external auditory canals clear 01/19/2014 None Full Exam - General 1994 Ears/Nose/Throat otoscopic exam Overall: tympanic membranes clear 01/19/2014 None Full Exam - General 1994 Ears/Nose/Throat oral cavity/pharynx/larynx Overall: oral mucosa clear 01/19/2014 None Full Exam - General 1994 Ears/Nose/Throat oral cavity/pharynx/larynx Overall: oropharyngeal mucosa clear 01/19/2014 None Full Exam - General 1994 Ears/Nose/Throat oral cavity/pharynx/larynx Overall: no masses 01/19/2014 None Full Exam - General 1994 Psychiatric orientation/consciousness Overall: oriented to person, place and time 01/19/2014 None Full Exam - General 1994 Abdomen abdominal exam Overall: no tenderness 01/19/2014 None Full Exam - General 1994 Abdomen abdominal exam Overall: normal bowel sounds 01/19/2014 None Full Exam - General 1994 Cardiovascular auscultation of heart Overall: regular rate 01/19/2014 None Full Exam - General 1994 Cardiovascular auscultation of heart Overall: normal heart sounds 01/19/2014 None Full Exam - General 1994 Cardiovascular auscultation of heart Overall: no murmurs 01/19/2014 None Full Exam - General 1994 Respiratory auscultation Overall: breath sounds clear bilaterally 01/19/2014 None Full Exam - General 1994 Respiratory respiratory effort/rhythm Overall: normal rate 01/19/2014 None Full Exam - General 1994 Respiratory respiratory effort/rhythm Overall: no retractions 01/19/2014 None Full Exam - General 1994 Constitutional general appearance Development: appears older than stated age 0801/15/2014 None Full Exam - General 1994 Constitutional general appearance Overall: well developed 01/15/2014 None Full Exam - General 1994 Constitutional general appearance Overall: in no acute distress 01/15/2014 None Full Exam - General 1994 Constitutional general appearance Overall: well nourished 01/15/2014 None Full Exam - General 1994 Eyes pupils and irises Overall: pupils equal, round, reactive to light and accomodation 01/15/2014 None Full Exam - General 1994 Ears/Nose/Throat oral cavity/pharynx/larynx Overall: oral mucosa clear 01/15/2014 None Full Exam - General 1994 Ears/Nose/Throat oral cavity/pharynx/larynx Overall: oropharyngeal mucosa clear 01/15/2014 None Full Exam - General 1994 Ears/Nose/Throat oral cavity/pharynx/larynx Overall: no masses 01/15/2014 None Full Exam - General 1994 Respiratory auscultation Overall: breath sounds clear bilaterally 01/15/2014 None Full Exam - General 1994 Respiratory respiratory effort/rhythm Overall: no retractions 01/15/2014 None Full Exam - General 1994 Respiratory respiratory effort/rhythm Overall: normal rate 01/15/2014 None Full Exam - General 1994 Cardiovascular extremities Edema present: non-pitting 01/15/2014 None Full Exam - General 1994 Cardiovascular extremities Edema present: severity 1+ - 4 +: trace to ankles 01/15/2014 None Full Exam - General 1994 Cardiovascular auscultation of heart Overall: regular rate 01/15/2014 None Full Exam - General 1994 Cardiovascular auscultation of heart Overall: normal heart sounds 01/15/2014 None Full Exam - General 1994 Cardiovascular auscultation of heart Overall: no murmurs 01/15/2014 None Full Exam - General 1994 Abdomen abdominal exam Overall: no tenderness 01/15/2014 None Full Exam - General 1994 Abdomen abdominal exam Overall: normal bowel sounds 01/15/2014 None Full Exam - General 1994 Integument inspection of skin Location: left leg 01/15/2014 knee-ulcer with small amount of fibrous tissue in the central aspect-debrided today in the office Full Exam - General 1994 Neurologic deep tendon reflexes Overall: deep tendon reflexes intact 01/15/2014 None Full Exam - General 1994 Neurologic gait Overall: no ataxia, no unsteadiness 01/15/2014 None Full Exam - General 1994 Neurologic coordination Overall: no tremors 01/15/2014 None Full Exam - General 1994 Neurologic cranial nerves Overall: crainial nerves 2 - 12 grossly intact 01/15/2014 None Full Exam - General 1994 Psychiatric orientation/consciousness Overall: oriented to person, place and time 01/15/2014 None Full Exam - General 1994 Psychiatric mood and affect Overall: normal mood and affect 01/15/2014 None Full Exam - General 1994 Cardiovascular auscultation of heart Overall: normal heart sounds 10/20/2013 None Full Exam - General 1994 Cardiovascular auscultation of heart Overall: no murmurs 10/20/2013 None Full Exam - General 1994 Abdomen abdominal exam Overall: no tenderness 10/20/2013 None Full Exam - General 1994 Abdomen abdominal exam Overall: normal bowel sounds 10/20/2013 None Full Exam - General 1994 Musculoskeletal upper extremity Overall: normal shoulder 10/20/2013 None Full Exam - General 1994 Musculoskeletal upper extremity Overall: normal elbow 10/20/2013 None Full Exam - General 1994 Musculoskeletal upper extremity Overall: normal wrist 10/20/2013 None Full Exam - General 1994 Musculoskeletal lower extremity Overall: knee benign 10/20/2013 None Full Exam - General 1994 Musculoskeletal lower extremity Overall: ankle benign 10/20/2013 None Full Exam - General 1994 Musculoskeletal lower extremity Inspection - ankle: a normal exam 10/20/2013 None Full Exam - General 1994 Musculoskeletal lower extremity Palpation - ankle: a normal exam 10/20/2013 None Full Exam - General 1994 Musculoskeletal lower extremity ROM - ankle: a normal exam 10/20/2013 None Full Exam - General 1994 Musculoskeletal lower extremity Stability - ankle: a normal exam 10/20/2013 None Full Exam - General 1994 Musculoskeletal lower extremity Muscle Strength/Tone - ankle: a normal exam 10/20/2013 None Full Exam - General 1994 Musculoskeletal lower extremity Inspection - foot: a normal exam 10/20/2013 None Full Exam - General 1994 Musculoskeletal lower extremity ROM - foot: a normal exam 10/20/2013 None Full Exam - General 1994 Musculoskeletal lower extremity Stability - foot: a normal exam 10/20/2013 None Full Exam - General 1994 Musculoskeletal spine, ribs and pelvis Posture: lordosis 10/20/2013 None Full Exam - General 1994 Musculoskeletal gait and station Overall: normal gait 10/20/2013 None Full Exam - General 1994 Musculoskeletal gait and station Overall: normal station 10/20/2013 None Full Exam - General 1994 Musculoskeletal head and neck Overall: head atraumatic 10/20/2013 None Full Exam - General 1994 Musculoskeletal head and neck Overall: cervical spine benign 10/20/2013 None Full Exam - General 1994 Neurologic deep tendon reflexes Overall: deep tendon reflexes intact 10/20/2013 None Full Exam - General 1994 Neurologic gait Overall: no ataxia, no unsteadiness 10/20/2013 None Full Exam - General 1994 Neurologic coordination Overall: no tremors 10/20/2013 None Full Exam - General 1994 Neurologic cranial nerves Overall: crainial nerves 2 - 12 grossly intact 10/20/2013 None Full Exam - General 1994 Psychiatric orientation/consciousness Overall: oriented to person, place and time 10/20/2013 None Full Exam - General 1994 Psychiatric mood and affect Overall: normal mood and affect 10/20/2013 None Full Exam - General 1994 Musculoskeletal lower extremity Inspection - knee: a normal exam 10/20/2013 None Full Exam - General 1994 Musculoskeletal lower extremity Palpation - knee: a normal exam 10/20/2013 None Full Exam - General 1994 Musculoskeletal lower extremity ROM - knee: a normal exam 10/20/2013 None Full Exam - General 1994 Musculoskeletal lower extremity Stability - knee: a normal exam 10/20/2013 None Full Exam - General 1994 Integument inspection of skin Location: left leg 10/20/2013 ulcer left anterior knee-very dry 1.2x0.8cm Full Exam - General 1994 Cardiovascular extremities Edema present: non-pitting 10/20/2013 None Full Exam - General 1994 Cardiovascular extremities Edema present: severity 1+ - 4 +: trace to ankles 10/20/2013 None Full Exam - General 1994 Constitutional general appearance Development: appears older than stated age 0510/20/2013 None Full Exam - General 1994 Constitutional general appearance Overall: well developed 10/20/2013 None Full Exam - General 1994 Constitutional general appearance Overall: in no acute distress 10/20/2013 None Full Exam - General 1994 Constitutional general appearance Overall: well nourished 10/20/2013 None Full Exam - General 1994 Eyes pupils and irises Overall: pupils equal, round, reactive to light and accomodation 10/20/2013 None Full Exam - General 1994 Ears/Nose/Throat otoscopic exam Overall: external auditory canals clear 10/20/2013 None Full Exam - General 1994 Ears/Nose/Throat otoscopic exam Overall: tympanic membranes clear 10/20/2013 None Full Exam - General 1994 Ears/Nose/Throat oral cavity/pharynx/larynx Overall: oral mucosa clear 10/20/2013 None Full Exam - General 1994 Ears/Nose/Throat oral cavity/pharynx/larynx Overall: oropharyngeal mucosa clear 10/20/2013 None Full Exam - General 1994 Ears/Nose/Throat oral cavity/pharynx/larynx Overall: no masses 10/20/2013 None Full Exam - General 1994 Respiratory auscultation Overall: breath sounds clear bilaterally 10/20/2013 None Full Exam - General 1994 Respiratory respiratory effort/rhythm Overall: no retractions 10/20/2013 None Full Exam - General 1994 Respiratory respiratory effort/rhythm Overall: normal rate 10/20/2013 None Full Exam - General 1994 Cardiovascular auscultation of heart Overall: regular rate 10/20/2013 None Full Exam - General 1994 Constitutional general appearance Overall: well developed 07/24/2013 None Full Exam - General 1994 Constitutional general appearance Overall: in no acute distress 07/24/2013 None Full Exam - General 1994 Constitutional general appearance Overall: well nourished 07/24/2013 None Full Exam - General 1994 Psychiatric orientation/consciousness Overall: oriented to person, place and time 07/24/2013 None Full Exam - General 1994 Integument inspection of skin Location: left leg 07/24/2013 ulcer left knee-much improved- decreased to 0.5cm in diameter with pink granuation tissue Full Exam - General 1994 Constitutional general appearance Overall: well developed 06/23/2013 None Full Exam - General 1994 Constitutional general appearance Overall: in no acute distress 06/23/2013 None Full Exam - General 1994 Constitutional general appearance Overall: well nourished 06/23/2013 None Full Exam - General 1994 Psychiatric orientation/consciousness Overall: oriented to person, place and time 06/23/2013 None Full Exam - General 1994 Integument inspection of skin Location: left leg 06/23/2013 2cm diameter circular ulcer left knee Full Exam - General 1994 Integument inspection of skin Consistency: fibrinous deposit in wound bed 06/23/2013 None Full Exam - General 1994 Constitutional general appearance Overall: well developed 06/12/2013 None Full Exam - General 1994 Constitutional general appearance Overall: in no acute distress 06/12/2013 None Full Exam - General 1994 Constitutional general appearance Overall: well nourished 06/12/2013 None Full Exam - General 1994 Integument inspection of skin Location: left leg 06/12/2013 2cm diameter circular ulcer left knee --Improved Full Exam - General 1994 Integument inspection of skin Consistency: fibrinous deposit in wound bed 06/12/2013 -- Improved Full Exam - General 1994 Psychiatric orientation/consciousness Overall: oriented to person, place and time 06/12/2013 None Full Exam - General 1994 Constitutional general appearance Overall: well developed 05/29/2013 None Full Exam - General 1994 Constitutional general appearance Overall: in no acute distress 05/29/2013 None Full Exam - General 1994 Constitutional general appearance Overall: well nourished 05/29/2013 None Full Exam - General 1994 Integument palpation Leg: tender 05/29/2013 ulcer left knee 2cm x 3cm x 0.5cm deep with fibrous tissue at base of wound --Improved Full Exam - General 1994 Psychiatric orientation/consciousness Overall: oriented to person, place and time 05/29/2013 None Full Exam - General 1994 Constitutional general appearance Overall: well developed 05/23/2013 None Full Exam - General 1994 Constitutional general appearance Overall: in no acute distress 05/23/2013 None Full Exam - General 1994 Constitutional general appearance Overall: well nourished 05/23/2013 None Full Exam - General 1994 Integument palpation Leg: tender 05/23/2013 ulcer left knee 2cm x 3cm x 0.5cm deep with fibrous tissue at base of wound Full Exam - General 1994 Psychiatric orientation/consciousness Overall: oriented to person, place and time 05/23/2013 None Full Exam - General 1994 Integument palpation Leg: tender 05/19/2013 ulcer left knee 2cm x 3cm x 0.5cm deep with fibrous tissue at base of wound Full Exam - General 1994 Constitutional general appearance Overall: well developed 05/19/2013 None Full Exam - General 1994 Constitutional general appearance Overall: in no acute distress 05/19/2013 None Full Exam - General 1994 Constitutional general appearance Overall: well nourished 05/19/2013 None Full Exam - General 1994 Psychiatric orientation/consciousness Overall: oriented to person, place and time 05/19/2013 None Full Exam - General 1994 Constitutional general appearance Overall: well developed 05/16/2013 None Full Exam - General 1994 Constitutional general appearance Overall: in no acute distress 05/16/2013 None Full Exam - General 1994 Constitutional general appearance Overall: well nourished 05/16/2013 None Full Exam - General 1995 Psychiatric orientation/consciousness Overall: oriented to person, place and time 05/16/2013 None Full Exam - General 1994 Integument palpation Leg: tender 05/16/2013 ulcer left knee 2cm x 3cm x 0.5cm deep with fibrous tissue at base of wound Full Exam - General 1994 Constitutional general appearance Overall: well developed 03/06/2013 None Full Exam - General 1994 Constitutional general appearance Overall: in no acute distress 03/06/2013 None Full Exam - General 1994 Constitutional general appearance Overall: well nourished 03/06/2013 None Full Exam - General 1994 Eyes pupils and irises Overall: pupils equal, round, reactive to light and accomodation 03/06/2013 None Full Exam - General 1994 Ears/Nose/Throat oral cavity/pharynx/larynx Overall: oral mucosa clear 03/06/2013 None Full Exam - General 1994 Ears/Nose/Throat oral cavity/pharynx/larynx Overall: oropharyngeal mucosa clear 03/06/2013 None Full Exam - General 1994 Ears/Nose/Throat oral cavity/pharynx/larynx Overall: no masses 03/06/2013 None Full Exam - General 1994 Respiratory auscultation Overall: breath sounds clear bilaterally 03/06/2013 None Full Exam - General 1994 Respiratory respiratory effort/rhythm Overall: no retractions 03/06/2013 None Full Exam - General 1994 Respiratory respiratory effort/rhythm Overall: normal rate 03/06/2013 None Full Exam - General 1994 Cardiovascular auscultation of heart Overall: regular rate 03/06/2013 None Full Exam - General 1994 Cardiovascular auscultation of heart Overall: normal heart sounds 03/06/2013 None Full Exam - General 1994 Cardiovascular auscultation of heart Overall: no murmurs 03/06/2013 None Full Exam - General 1994 Abdomen abdominal exam Overall: no tenderness 03/06/2013 None Full Exam - General 1994 Abdomen abdominal exam Overall: normal bowel sounds 03/06/2013 None Full Exam - General 1994 Musculoskeletal gait and station Overall: normal gait 03/06/2013 None Full Exam - General 1994 Musculoskeletal gait and station Overall: normal station 03/06/2013 None Full Exam - General 1994 Musculoskeletal head and neck Overall: head atraumatic 03/06/2013 None Full Exam - General 1994 Musculoskeletal head and neck Overall: cervical spine benign 03/06/2013 None Full Exam - General 1994 Psychiatric orientation/consciousness Overall: oriented to person, place and time 03/06/2013 None Full Exam - General 1994 Psychiatric mood and affect Overall: normal mood and affect 03/06/2013 None Full Exam - General 1994 Constitutional general appearance Overall: well nourished 12/26/2012 None Full Exam - General 1994 Constitutional general appearance Overall: well developed 12/26/2012 None Full Exam - General 1994 Constitutional general appearance Overall: in no acute distress 12/26/2012 None Full Exam - General 1994 Constitutional general appearance Development: appears older than stated age 0712/26/2012 None Full Exam - General 1995 Ears/Nose/Throat otoscopic exam Overall: external auditory canals clear 12/26/2012 None Full Exam - General 1994 Ears/Nose/Throat otoscopic exam Overall: tympanic membranes clear 12/26/2012 None Full Exam - General 1994 Ears/Nose/Throat oral cavity/pharynx/larynx Overall: oral mucosa clear 12/26/2012 None Full Exam - General 1994 Ears/Nose/Throat oral cavity/pharynx/larynx Overall: oropharyngeal mucosa clear 12/26/2012 None Full Exam - General 1994 Ears/Nose/Throat oral cavity/pharynx/larynx Overall: no masses 12/26/2012 None Full Exam - General 1994 Respiratory auscultation Overall: breath sounds clear bilaterally 12/26/2012 None Full Exam - General 1994 Respiratory respiratory effort/rhythm Overall: no retractions 12/26/2012 None Full Exam - General 1994 Respiratory respiratory effort/rhythm Overall: normal rate 12/26/2012 None Full Exam - General 1994 Cardiovascular auscultation of heart Overall: regular rate 12/26/2012 None Full Exam - General 1994 Cardiovascular auscultation of heart Overall: normal heart sounds 12/26/2012 None Full Exam - General 1994 Cardiovascular auscultation of heart Overall: no murmurs 12/26/2012 None Full Exam - General 1994 Abdomen abdominal exam Overall: no tenderness 12/26/2012 None Full Exam - General 1994 Abdomen abdominal exam Overall: normal bowel sounds 12/26/2012 None Full Exam - General 1994 Musculoskeletal head and neck Overall: head atraumatic 12/26/2012 None Full Exam - General 1994 Musculoskeletal head and neck Overall: cervical spine benign 12/26/2012 None Full Exam - General 1994 Musculoskeletal upper extremity Overall: normal shoulder 12/26/2012 None Full Exam - General 1994 Musculoskeletal upper extremity Overall: normal elbow 12/26/2012 None Full Exam - General 1994 Musculoskeletal upper extremity Overall: normal wrist 12/26/2012 None Full Exam - General 1994 Musculoskeletal lower extremity Overall: knee benign 12/26/2012 None Full Exam - General 1994 Musculoskeletal lower extremity Overall: ankle benign 12/26/2012 None Full Exam - General 1994 Musculoskeletal spine, ribs and pelvis Posture: lordosis 12/26/2012 None Full Exam - General 1994 Neurologic gait Overall: no ataxia, no unsteadiness 12/26/2012 None Full Exam - General 1994 Neurologic coordination Overall: no tremors 12/26/2012 None Full Exam - General 1994 Neurologic cranial nerves Overall: crainial nerves 2 - 12 grossly intact 12/26/2012 None Full Exam - General 1994 Psychiatric orientation/consciousness Overall: oriented to person, place and time 12/26/2012 None Full Exam - General 1994 Psychiatric mood and affect Overall: normal mood and affect 12/26/2012 None Full Exam - General 1994 Eyes pupils and irises Overall: pupils equal, round, reactive to light and accomodation 12/26/2012 None Full Exam - General 1994 Musculoskeletal gait and station Overall: normal gait 12/26/2012 None Full Exam - General 1994 Musculoskeletal gait and station Overall: normal station 12/26/2012 None Full Exam - General 1994 Musculoskeletal lower extremity Inspection - ankle: a normal exam 12/26/2012 None Full Exam - General 1994 Musculoskeletal lower extremity Palpation - ankle: a normal exam 12/26/2012 None Full Exam - General 1994 Musculoskeletal lower extremity ROM - ankle: a normal exam 12/26/2012 None Full Exam - General 1994 Musculoskeletal lower extremity Stability - ankle: a normal exam 12/26/2012 None Full Exam - General 1994 Musculoskeletal lower extremity Muscle Strength/Tone - ankle: a normal exam 12/26/2012 None Full Exam - General 1994 Musculoskeletal lower extremity Inspection - foot: a normal exam 12/26/2012 None Full Exam - General 1994 Musculoskeletal lower extremity Stability - foot: a normal exam 12/26/2012 None Full Exam - General 1994 Musculoskeletal lower extremity ROM - foot: a normal exam 12/26/2012 None Full Exam - General 1994 Neurologic deep tendon reflexes Overall: deep tendon reflexes intact 12/26/2012 None Full Exam - General 1994 Cardiovascular auscultation of heart Overall: normal heart sounds 11/21/2012 None Full Exam - General 1994 Cardiovascular auscultation of heart Overall: no murmurs 11/21/2012 None Full Exam - General 1994 Abdomen abdominal exam Overall: no tenderness 11/21/2012 None Full Exam - General 1994 Abdomen abdominal exam Overall: normal bowel sounds 11/21/2012 None Full Exam - General 1994 Musculoskeletal head and neck Overall: head atraumatic 11/21/2012 None Full Exam - General 1994 Musculoskeletal head and neck Overall: cervical spine benign 11/21/2012 None Full Exam - General 1995 Musculoskeletal gait and station Overall: normal gait 11/21/2012 None Full Exam - General 1994 Musculoskeletal gait and station Overall: normal station 11/21/2012 None Full Exam - General 1994 Psychiatric orientation/consciousness Overall: oriented to person, place and time 11/21/2012 None Full Exam - General 1994 Psychiatric mood and affect Overall: normal mood and affect 11/21/2012 None Full Exam - General 1994 Constitutional general appearance Overall: well nourished 11/21/2012 None Full Exam - General 1994 Constitutional general appearance Overall: well developed 11/21/2012 None Full Exam - General 1994 Constitutional general appearance Overall: in no acute distress 11/21/2012 None Full Exam - General 1994 Eyes pupils and irises Overall: pupils equal, round, reactive to light and accomodation 11/21/2012 None Full Exam - General 1994 Ears/Nose/Throat oral cavity/pharynx/larynx Overall: oral mucosa clear 11/21/2012 None Full Exam - General 1995 Ears/Nose/Throat oral cavity/pharynx/larynx Overall: oropharyngeal mucosa clear 11/21/2012 None Full Exam - General 1995 Ears/Nose/Throat oral cavity/pharynx/larynx Overall: no masses 11/21/2012 None Full Exam - General 1994 Respiratory auscultation Overall: breath sounds clear bilaterally 11/21/2012 None Full Exam - General 1994 Respiratory respiratory effort/rhythm Overall: no retractions 11/21/2012 None Full Exam - General 1994 Respiratory respiratory effort/rhythm Overall: normal rate 11/21/2012 None Full Exam - General 1994 Cardiovascular auscultation of heart Overall: regular rate 11/21/2012 None Full Exam - General 1994 Constitutional general appearance Overall: well developed 07/21/2012 None Full Exam - General 1994 Constitutional general appearance Overall: in no acute distress 07/21/2012 None Full Exam - General 1994 Constitutional general appearance Overall: well nourished 07/21/2012 None Full Exam - General 1994 Psychiatric orientation/consciousness Overall: oriented to person, place and time 07/21/2012 None Full Exam - General 1995 Lymphatic neck nodes Overall: anterior cervical chain benign 07/21/2012 None Full Exam - General 1994 Lymphatic neck nodes Overall: posterior cervical chain benign 07/21/2012 None Full Exam - General 1994 Abdomen abdominal exam Overall: no tenderness 07/21/2012 None Full Exam - General 1995 Abdomen abdominal exam Overall: normal bowel sounds 07/21/2012 None Full Exam - General 1994 Cardiovascular auscultation of heart Overall: regular rate 07/21/2012 None Full Exam - General 1994 Cardiovascular auscultation of heart Overall: normal heart sounds 07/21/2012 None Full Exam - General 1994 Respiratory auscultation Upper lung field: a normal exam 07/21/2012 None Full Exam - General 1994 Respiratory auscultation Lower lung field: crackles 07/21/2012 None Full Exam - General 1995 Ears/Nose/Throat otoscopic exam Overall: external auditory canals clear 07/21/2012 None Full Exam - General 1995 Ears/Nose/Throat otoscopic exam Overall: tympanic membranes clear 07/21/2012 None Full Exam - General 1994 Eyes conjunctiva /eyelids Overall: conjunctiva clear 07/21/2012 None Full Exam - General 1994 Constitutional general appearance Overall: well developed 07/13/2012 None Full Exam - General 1994 Constitutional general appearance Overall: in no acute distress 07/13/2012 None Full Exam - General 1994 Eyes conjunctiva /eyelids Overall: conjunctiva clear 07/13/2012 None Full Exam - General 1994 Respiratory auscultation Overall: breath sounds clear bilaterally 07/13/2012 None Full Exam - General 1994 Cardiovascular auscultation of heart Overall: regular rate 07/13/2012 None Full Exam - General 1994 Cardiovascular auscultation of heart Overall: normal heart sounds 07/13/2012 None Full Exam - General 1994 Musculoskeletal lower extremity Inspection - ankle: a normal exam 07/13/2012 None Full Exam - General 1994 Musculoskeletal lower extremity Palpation - ankle: a normal exam 07/13/2012 None Full Exam - General 1994 Musculoskeletal lower extremity ROM - ankle: a normal exam 07/13/2012 None Full Exam - General 1994 Musculoskeletal lower extremity Stability - ankle: a normal exam 07/13/2012 None Full Exam - General 1994 Musculoskeletal lower extremity Muscle Strength/Tone - ankle: a normal exam 07/13/2012 None Full Exam - General 1994 Musculoskeletal lower extremity Inspection - foot: a normal exam 07/13/2012 None Full Exam - General 1994 Musculoskeletal lower extremity Palpation - foot: tender 07/13/2012 plantar surface of right foot Full Exam - General 1994 Musculoskeletal lower extremity ROM - foot: a normal exam 07/13/2012 None Full Exam - General 1994 Musculoskeletal lower extremity Stability - foot: a normal exam 07/13/2012 None Full Exam - General 1994 Neurologic deep tendon reflexes Overall: deep tendon reflexes intact 07/13/2012 None Full Exam - General 1994 Psychiatric orientation/consciousness Overall: oriented to person, place and time 07/13/2012 None Full Exam - General 1994 Abdomen abdominal exam Overall: no tenderness 07/13/2012 None Full Exam - General 1994 Abdomen abdominal exam Overall: normal bowel sounds 07/13/2012 None Full Exam - General 1994 Constitutional general appearance Overall: well developed 05/26/2012 None Full Exam - General 1994 Constitutional general appearance Overall: in no acute distress 05/26/2012 None Full Exam - General 1994 Psychiatric orientation/consciousness Overall: oriented to person, place and time 05/26/2012 None Full Exam - General 1994 Neurologic deep tendon reflexes Overall: deep tendon reflexes intact 05/26/2012 None Full Exam - General 1994 Musculoskeletal lower extremity Inspection - ankle: a normal exam 05/26/2012 None Full Exam - General 1994 Musculoskeletal lower extremity Palpation - ankle: a normal exam 05/26/2012 None Full Exam - General 1994 Musculoskeletal lower extremity ROM - ankle: a normal exam 05/26/2012 None Full Exam - General 1994 Musculoskeletal lower extremity Stability - ankle: a normal exam 05/26/2012 None Full Exam - General 1994 Musculoskeletal lower extremity Muscle Strength/Tone - ankle: a normal exam 05/26/2012 None Full Exam - General 1994 Musculoskeletal lower extremity Inspection - foot: a normal exam 05/26/2012 None Full Exam - General 1994 Musculoskeletal lower extremity Palpation - foot: tender 05/26/2012 plantar surface of right foot Full Exam - General 1994 Musculoskeletal lower extremity ROM - foot: a normal exam 05/26/2012 None Full Exam - General 1994 Musculoskeletal lower extremity Stability - foot: a normal exam 05/26/2012 None Full Exam - General 1994 Cardiovascular auscultation of heart Overall: regular rate 05/26/2012 None Full Exam - General 1994 Cardiovascular auscultation of heart Overall: normal heart sounds 05/26/2012 None Full Exam - General 1994 Respiratory auscultation Overall: breath sounds clear bilaterally 05/26/2012 None Full Exam - General 1994 Eyes conjunctiva /eyelids Overall: conjunctiva clear 05/26/2012 None Full Exam - General 1995 Cardiovascular auscultation of heart Overall: regular rate 02/15/2012 None Full Exam - General 1995 Cardiovascular auscultation of heart Overall: normal heart sounds 02/15/2012 None Full Exam - General 1994 Cardiovascular auscultation of heart Overall: no murmurs 02/15/2012 None Full Exam - General 1994 Abdomen abdominal exam Overall: no tenderness 02/15/2012 None Full Exam - General 1995 Abdomen abdominal exam Overall: normal bowel sounds 02/15/2012 None Full Exam - General 1995 Musculoskeletal gait and station Overall: normal gait 02/15/2012 None Full Exam - General 1995 Musculoskeletal gait and station Overall: normal station 02/15/2012 None Full Exam - General 1994 Musculoskeletal head and neck Overall: head atraumatic 02/15/2012 None Full Exam - General 1994 Musculoskeletal head and neck Overall: cervical spine benign 02/15/2012 None Full Exam - General 1994 Psychiatric orientation/consciousness Overall: oriented to person, place and time 02/15/2012 None Full Exam - General 1994 Psychiatric mood and affect Overall: normal mood and affect 02/15/2012 None Full Exam - General 1994 Chest/Breast breast and axillae palpation Lower outer quadrant: no mass 02/15/2012 None Full Exam - General 1994 Chest/Breast breast and axillae palpation Lower outer quadrant: tender 02/15/2012 Left chest wall/lower ribs TTP. Small bruise noted to LUQ abdomen Full Exam - General 1994 Constitutional general appearance Overall: well developed 02/15/2012 None Full Exam - General 1994 Constitutional general appearance Overall: in no acute distress 02/15/2012 None Full Exam - General 1994 Constitutional general appearance Overall: well nourished 02/15/2012 None Full Exam - General 1994 Eyes pupils and irises Overall: pupils equal, round, reactive to light and accomodation 02/15/2012 None Full Exam - General 1994 Ears/Nose/Throat oral cavity/pharynx/larynx Overall: oral mucosa clear 02/15/2012 None Full Exam - General 1995 Ears/Nose/Throat oral cavity/pharynx/larynx Overall: oropharyngeal mucosa clear 02/15/2012 None Full Exam - General 1994 Ears/Nose/Throat oral cavity/pharynx/larynx Overall: no masses 02/15/2012 None Full Exam - General 1994 Respiratory auscultation Overall: breath sounds clear bilaterally 02/15/2012 None Full Exam - General 1994 Respiratory respiratory effort/rhythm Overall: no retractions 02/15/2012 None Full Exam - General 1994 Respiratory respiratory effort/rhythm Overall: normal rate 02/15/2012 None Full Exam - General 1995 Constitutional general appearance Overall: well nourished 01/13/2012 None Full Exam - General 1995 Constitutional general appearance Overall: well developed 01/13/2012 None Full Exam - General 1994 Constitutional general appearance Overall: in no acute distress 01/13/2012 None Full Exam - General 1994 Eyes pupils and irises Overall: pupils equal, round, reactive to light and accomodation 01/13/2012 None Full Exam - General 1995 Ears/Nose/Throat oral cavity/pharynx/larynx Overall: oral mucosa clear 01/13/2012 None Full Exam - General 1995 Ears/Nose/Throat oral cavity/pharynx/larynx Overall: oropharyngeal mucosa clear 01/13/2012 None Full Exam - General 1994 Ears/Nose/Throat oral cavity/pharynx/larynx Overall: no masses 01/13/2012 None Full Exam - General 1994 Respiratory auscultation Overall: breath sounds clear bilaterally 01/13/2012 None Full Exam - General 1994 Respiratory respiratory effort/rhythm Overall: no retractions 01/13/2012 None Full Exam - General 1994 Respiratory respiratory effort/rhythm Overall: normal rate 01/13/2012 None Full Exam - General 1994 Cardiovascular auscultation of heart Overall: regular rate 01/13/2012 None Full Exam - General 1994 Cardiovascular auscultation of heart Overall: normal heart sounds 01/13/2012 None Full Exam - General 1994 Cardiovascular auscultation of heart Overall: no murmurs 01/13/2012 None Full Exam - General 1994 Abdomen abdominal exam Overall: no tenderness 01/13/2012 None Full Exam - General 1994 Abdomen abdominal exam Overall: normal bowel sounds 01/13/2012 None Full Exam - General 1994 Musculoskeletal head and neck Overall: head atraumatic 01/13/2012 None Full Exam - General 1994 Musculoskeletal head and neck Overall: cervical spine benign 01/13/2012 None Full Exam - General 1994 Musculoskeletal gait and station Overall: normal gait 01/13/2012 None Full Exam - General 1994 Musculoskeletal gait and station Overall: normal station 01/13/2012 None Full Exam - General 1994 Psychiatric orientation/consciousness Overall: oriented to person, place and time 01/13/2012 None Full Exam - General 1994 Psychiatric mood and affect Overall: normal mood and affect 01/13/2012 None Full Exam - General 1994 Constitutional general appearance Overall: well nourished 12/21/2011 None Full Exam - General 1994 Constitutional general appearance Overall: well developed 12/21/2011 None Full Exam - General 1994 Constitutional general appearance Overall: in no acute distress 12/21/2011 None Full Exam - General 1994 Eyes pupils and irises Overall: pupils equal, round, reactive to light and accomodation 12/21/2011 None Full Exam - General 1994 Ears/Nose/Throat oral cavity/pharynx/larynx Overall: oral mucosa clear 12/21/2011 None Full Exam - General 1994 Ears/Nose/Throat oral cavity/pharynx/larynx Overall: oropharyngeal mucosa clear 12/21/2011 None Full Exam - General 1994 Ears/Nose/Throat oral cavity/pharynx/larynx Overall: no masses 12/21/2011 None Full Exam - General 1994 Respiratory auscultation Overall: breath sounds clear bilaterally 12/21/2011 None Full Exam - General 1994 Respiratory respiratory effort/rhythm Overall: no retractions 12/21/2011 None Full Exam - General 1994 Respiratory respiratory effort/rhythm Overall: normal rate 12/21/2011 None Full Exam - General 1994 Cardiovascular auscultation of heart Overall: regular rate 12/21/2011 None Full Exam - General 1994 Cardiovascular auscultation of heart Overall: normal heart sounds 12/21/2011 None Full Exam - General 1994 Cardiovascular auscultation of heart Overall: no murmurs 12/21/2011 None Full Exam - General 1994 Abdomen abdominal exam Overall: no tenderness 12/21/2011 None Full Exam - General 1994 Abdomen abdominal exam Overall: normal bowel sounds 12/21/2011 None Full Exam - General 1994 Musculoskeletal head and neck Overall: head atraumatic 12/21/2011 None Full Exam - General 1994 Musculoskeletal head and neck Overall: cervical spine benign 12/21/2011 None Full Exam - General 1994 Musculoskeletal gait and station Overall: normal gait 12/21/2011 None Full Exam - General 1994 Musculoskeletal gait and station Overall: normal station 12/21/2011 None Full Exam - General 1994 Psychiatric orientation/consciousness Overall: oriented to person, place and time 12/21/2011 None Full Exam - General 1994 Psychiatric mood and affect Overall: normal mood and affect 12/21/2011 None Full Exam - General 1995 Musculoskeletal lower extremity Inspection - knee: a normal exam 12/21/2011 None Full Exam - General 1994 Musculoskeletal lower extremity Palpation - knee: tibial tenderness 12/21/2011 None Full Exam - General 1994 Abdomen abdominal exam Overall: normal bowel sounds 10/02/2011 None Full Exam - General 1994 Cardiovascular auscultation of heart Overall: regular rate 10/02/2011 None Full Exam - General 1994 Cardiovascular auscultation of heart Overall: normal heart sounds 10/02/2011 None Full Exam - General 1994 Cardiovascular auscultation of heart Overall: no murmurs 10/02/2011 None Full Exam - General 1994 Constitutional general appearance Overall: well nourished 10/02/2011 None Full Exam - General 1994 Constitutional general appearance Overall: well developed 10/02/2011 None Full Exam - General 1994 Constitutional general appearance Overall: in no acute distress 10/02/2011 None Full Exam - General 1994 Ears/Nose/Throat oral cavity/pharynx/larynx Overall: oral mucosa clear 10/02/2011 None Full Exam - General 1994 Ears/Nose/Throat oral cavity/pharynx/larynx Overall: oropharyngeal mucosa clear 10/02/2011 None Full Exam - General 1994 Ears/Nose/Throat oral cavity/pharynx/larynx Overall: no masses 10/02/2011 None Full Exam - General 1994 Eyes pupils and irises Overall: pupils equal, round, reactive to light and accomodation 10/02/2011 None Full Exam - General 1994 Musculoskeletal head and neck Overall: head atraumatic 10/02/2011 None Full Exam - General 1994 Musculoskeletal head and neck Overall: cervical spine benign 10/02/2011 None Full Exam - General 1994 Musculoskeletal gait and station Overall: normal gait 10/02/2011 None Full Exam - General 1994 Abdomen abdominal exam Overall: no tenderness 10/02/2011 None Full Exam - General 1994 Musculoskeletal gait and station Overall: normal station 10/02/2011 None Full Exam - General 1994 Psychiatric orientation/consciousness Overall: oriented to person, place and time 10/02/2011 None Full Exam - General 1994 Psychiatric mood and affect Overall: normal mood and affect 10/02/2011 None Full Exam - General 1994 Respiratory auscultation Overall: breath sounds clear bilaterally 10/02/2011 None Full Exam - General 1994 Respiratory respiratory effort/rhythm Overall: no retractions 10/02/2011 None Full Exam - General 1994 Respiratory respiratory effort/rhythm Overall: normal rate 10/02/2011 None Full Exam - General 1994 Abdomen abdominal exam Overall: no tenderness 09/01/2011 None Full Exam - General 1995 Abdomen abdominal exam Overall: normal bowel sounds 09/01/2011 None Full Exam - General 1994 Cardiovascular auscultation of heart Overall: regular rate 09/01/2011 None Full Exam - General 1994 Cardiovascular auscultation of heart Overall: normal heart sounds 09/01/2011 None Full Exam - General 1994 Cardiovascular auscultation of heart Overall: no murmurs 09/01/2011 None Full Exam - General 1994 Constitutional general appearance Overall: well nourished 09/01/2011 None Full Exam - General 1995 Constitutional general appearance Overall: well developed 09/01/2011 None Full Exam - General 1994 Constitutional general appearance Overall: in no acute distress 09/01/2011 None Full Exam - General 1994 Ears/Nose/Throat oral cavity/pharynx/larynx Overall: oral mucosa clear 09/01/2011 None Full Exam - General 1994 Ears/Nose/Throat oral cavity/pharynx/larynx Overall: oropharyngeal mucosa clear 09/01/2011 None Full Exam - General 1995 Ears/Nose/Throat oral cavity/pharynx/larynx Overall: no masses 09/01/2011 None Full Exam - General 1994 Eyes pupils and irises Overall: pupils equal, round, reactive to light and accomodation 09/01/2011 None Full Exam - General 1994 Musculoskeletal head and neck Overall: head atraumatic 09/01/2011 None Full Exam - General 1994 Musculoskeletal head and neck Overall: cervical spine benign 09/01/2011 None Full Exam - General 1994 Musculoskeletal gait and station Overall: normal gait 09/01/2011 None Full Exam - General 1994 Musculoskeletal gait and station Overall: normal station 09/01/2011 None Full Exam - General 1994 Psychiatric orientation/consciousness Overall: oriented to person, place and time 09/01/2011 None Full Exam - General 1994 Psychiatric mood and affect Overall: normal mood and affect 09/01/2011 None Full Exam - General 1994 Respiratory auscultation Overall: breath sounds clear bilaterally 09/01/2011 None Full Exam - General 1994 Respiratory respiratory effort/rhythm Overall: no retractions 09/01/2011 None Full Exam - General 1994 Respiratory respiratory effort/rhythm Overall: normal rate 09/01/2011 None Full Exam - General 1994 Musculoskeletal upper extremity Inspection - shoulder: a normal exam 09/01/2011 None Full Exam - General 1994 Musculoskeletal upper extremity Palpation - shoulder: a normal exam 09/01/2011 None Full Exam - General 1994 Musculoskeletal upper extremity Inspection - upper arm: a normal exam 09/01/2011 None Full Exam - General 1994 Musculoskeletal upper extremity Palpation - upper arm: normal on palpation 09/01/2011 None Full Exam - General 1994 Musculoskeletal upper extremity Inspection - elbow: a normal exam 09/01/2011 Bruising noted to left and right elbows and forearms Full Exam - General 1994 Musculoskeletal upper extremity Palpation - elbow: a normal exam 09/01/2011 None Full Exam - General 1994 Musculoskeletal upper extremity Inspection - forearm: a normal exam 09/01/2011 None Full Exam - General 1994 Musculoskeletal upper extremity Palpation - forearm: normal on palpation 09/01/2011 None Full Exam - General 1994 Musculoskeletal upper extremity ROM - wrist: a normal exam 09/01/2011 None Full Exam - General 1994 Musculoskeletal upper extremity Stability - wrist: a normal exam 09/01/2011 None Full Exam - General 1994 Musculoskeletal upper extremity Muscle Strength/Tone - wrist: a normal exam 09/01/2011 None Full Exam - General 1994 Musculoskeletal lower extremity Inspection - knee: a normal exam 09/01/2011 None Full Exam - General 1994 Musculoskeletal lower extremity Palpation - knee: a normal exam 09/01/2011 None Full Exam - General 1994 Musculoskeletal lower extremity ROM - knee: a normal exam 09/01/2011 None Full Exam - General 1994 Musculoskeletal lower extremity Stability - knee: a normal exam 09/01/2011 None Full Exam - General 1994 Constitutional general appearance Overall: well nourished 08/03/2011 None Full Exam - General 1994 Constitutional general appearance Overall: well developed 08/03/2011 None Full Exam - General 1994 Constitutional general appearance Overall: in no acute distress 08/03/2011 None Full Exam - General 1994 Eyes pupils and irises Overall: pupils equal, round, reactive to light and accomodation 08/03/2011 None Full Exam - General 1994 Ears/Nose/Throat oral cavity/pharynx/larynx Overall: oral mucosa clear 08/03/2011 None Full Exam - General 1994 Ears/Nose/Throat oral cavity/pharynx/larynx Overall: oropharyngeal mucosa clear 08/03/2011 None Full Exam - General 1994 Ears/Nose/Throat oral cavity/pharynx/larynx Overall: no masses 08/03/2011 None Full Exam - General 1994 Respiratory auscultation Overall: breath sounds clear bilaterally 08/03/2011 None Full Exam - General 1994 Respiratory respiratory effort/rhythm Overall: no retractions 08/03/2011 None Full Exam - General 1995 Respiratory respiratory effort/rhythm Overall: normal rate 08/03/2011 None Full Exam - General 1995 Cardiovascular auscultation of heart Overall: regular rate 08/03/2011 None Full Exam - General 1994 Cardiovascular auscultation of heart Overall: normal heart sounds 08/03/2011 None Full Exam - General 1994 Cardiovascular auscultation of heart Overall: no murmurs 08/03/2011 None Full Exam - General 1994 Abdomen abdominal exam Overall: no tenderness 08/03/2011 None Full Exam - General 1995 Abdomen abdominal exam Overall: normal bowel sounds 08/03/2011 None Full Exam - General 1994 Musculoskeletal head and neck Overall: head atraumatic 08/03/2011 None Full Exam - General 1994 Musculoskeletal head and neck Overall: cervical spine benign 08/03/2011 None Full Exam - General 1994 Musculoskeletal gait and station Overall: normal station 08/03/2011 None Full Exam - General 1994 Psychiatric orientation/consciousness Overall: oriented to person, place and time 08/03/2011 None Full Exam - General 1994 Psychiatric mood and affect Overall: normal mood and affect 08/03/2011 None Full Exam - General 1994 Musculoskeletal gait and station Overall: normal gait 08/03/2011 None Full Exam - General 1994 Abdomen abdominal exam Overall: no tenderness 06/29/2011 None Full Exam - General 1994 Abdomen abdominal exam Overall: normal bowel sounds 06/29/2011 None Full Exam - General 1994 Cardiovascular auscultation of heart Overall: regular rate 06/29/2011 None Full Exam - General 1994 Cardiovascular auscultation of heart Overall: normal heart sounds 06/29/2011 None Full Exam - General 1994 Cardiovascular auscultation of heart Overall: no murmurs 06/29/2011 None Full Exam - General 1994 Constitutional general appearance Overall: well nourished 06/29/2011 None Full Exam - General 1994 Constitutional general appearance Overall: well developed 06/29/2011 None Full Exam - General 1994 Constitutional general appearance Overall: in no acute distress 06/29/2011 None Full Exam - General 1994 Ears/Nose/Throat oral cavity/pharynx/larynx Overall: oral mucosa clear 06/29/2011 None Full Exam - General 1994 Ears/Nose/Throat oral cavity/pharynx/larynx Overall: oropharyngeal mucosa clear 06/29/2011 None Full Exam - General 1994 Ears/Nose/Throat oral cavity/pharynx/larynx Overall: no masses 06/29/2011 None Full Exam - General 1994 Eyes pupils and irises Overall: pupils equal, round, reactive to light and accomodation 06/29/2011 None Full Exam - General 1994 Musculoskeletal head and neck Overall: head atraumatic 06/29/2011 None Full Exam - General 1994 Musculoskeletal head and neck Overall: cervical spine benign 06/29/2011 None Full Exam - General 1994 Musculoskeletal gait and station Overall: normal gait 06/29/2011 None Full Exam - General 1994 Musculoskeletal gait and station Overall: normal station 06/29/2011 None Full Exam - General 1994 Psychiatric orientation/consciousness Overall: oriented to person, place and time 06/29/2011 None Full Exam - General 1994 Respiratory auscultation Overall: breath sounds clear bilaterally 06/29/2011 None Full Exam - General 1994 Respiratory respiratory effort/rhythm Overall: no retractions 06/29/2011 None Full Exam - General 1994 Respiratory respiratory effort/rhythm Overall: normal rate 06/29/2011 None Full Exam - General 1994 Musculoskeletal upper extremity Inspection - shoulder: a normal exam 06/29/2011 None Full Exam - General 1994 Musculoskeletal upper extremity Palpation - shoulder: a normal exam 06/29/2011 None Full Exam - General 1994 Musculoskeletal upper extremity Inspection - upper arm: a normal exam 06/29/2011 None Full Exam - General 1994 Musculoskeletal upper extremity Palpation - upper arm: normal on palpation 06/29/2011 None Full Exam - General 1994 Musculoskeletal upper extremity Inspection - elbow: a normal exam 06/29/2011 None Full Exam - General 1994 Musculoskeletal upper extremity Palpation - elbow: a normal exam 06/29/2011 None Full Exam - General 1994 Musculoskeletal upper extremity Inspection - forearm: a normal exam 06/29/2011 None Full Exam - General 1994 Musculoskeletal upper extremity Palpation - forearm: normal on palpation 06/29/2011 None Full Exam - General 1994 Musculoskeletal upper extremity Palpation - wrist: tender 06/29/2011 with bruising noted to bilateral wrists. Full Exam - General 1994 Musculoskeletal upper extremity ROM - wrist: a normal exam 06/29/2011 None Full Exam - General 1994 Musculoskeletal upper extremity Stability - wrist: a normal exam 06/29/2011 None Full Exam - General 1994 Musculoskeletal upper extremity Muscle Strength/Tone - wrist: a normal exam 06/29/2011 None Full Exam - General 1994 Musculoskeletal lower extremity Inspection - knee: swelling 06/29/2011 slight with bruising noted to right knee. Full Exam - General 1994 Musculoskeletal lower extremity Palpation - knee: prepatellar tenderness 06/29/2011 None Full Exam - General 1994 Musculoskeletal lower extremity ROM - knee: a normal exam 06/29/2011 None Full Exam - General 1994 Musculoskeletal upper extremity Inspection - wrist: redness 06/29/2011 due to healing bruise Full Exam - General 1994 Psychiatric mood and affect Mood: labile mood 06/29/2011 None Full Exam - General 1994 Psychiatric mood and affect Affect: flat 06/29/2011 None Full Exam - General 1994 Musculoskeletal upper extremity Inspection - shoulder: a normal exam 06/22/2011 None Full Exam - General 1994 Musculoskeletal upper extremity Palpation - shoulder: a normal exam 06/22/2011 None Full Exam - General 1994 Musculoskeletal upper extremity Inspection - upper arm: a normal exam 06/22/2011 None Full Exam - General 1994 Musculoskeletal upper extremity Palpation - upper arm: normal on palpation 06/22/2011 None Full Exam - General 1994 Musculoskeletal upper extremity Inspection - elbow: a normal exam 06/22/2011 None Full Exam - General 1994 Musculoskeletal upper extremity Palpation - elbow: a normal exam 06/22/2011 None Full Exam - General 1994 Musculoskeletal upper extremity Inspection - forearm: a normal exam 06/22/2011 None Full Exam - General 1994 Musculoskeletal upper extremity Palpation - forearm: normal on palpation 06/22/2011 None Full Exam - General 1994 Musculoskeletal upper extremity Palpation - wrist: tender 06/22/2011 with bruising noted to bilateral wrists. Full Exam - General 1994 Musculoskeletal upper extremity ROM - wrist: a normal exam 06/22/2011 None Full Exam - General 1994 Musculoskeletal upper extremity Stability - wrist: a normal exam 06/22/2011 None Full Exam - General 1994 Musculoskeletal upper extremity Muscle Strength/Tone - wrist: a normal exam 06/22/2011 None Full Exam - General 1994 Musculoskeletal lower extremity Inspection - knee: swelling 06/22/2011 slight with bruising noted to right knee. Full Exam - General 1994 Musculoskeletal lower extremity Palpation - knee: prepatellar tenderness 06/22/2011 None Full Exam - General 1994 Musculoskeletal lower extremity ROM - knee: a normal exam 06/22/2011 None Full Exam - General 1994 Respiratory respiratory effort/rhythm Overall: no retractions 06/22/2011 None Full Exam - General 1994 Respiratory respiratory effort/rhythm Overall: normal rate 06/22/2011 None Full Exam - General 1995 Cardiovascular auscultation of heart Overall: regular rate 06/22/2011 None Full Exam - General 1995 Cardiovascular auscultation of heart Overall: normal heart sounds 06/22/2011 None Full Exam - General 1994 Cardiovascular auscultation of heart Overall: no murmurs 06/22/2011 None Full Exam - General 1995 Abdomen abdominal exam Overall: no tenderness 06/22/2011 None Full Exam - General 1995 Abdomen abdominal exam Overall: normal bowel sounds 06/22/2011 None Full Exam - General 1995 Musculoskeletal head and neck Overall: head atraumatic 06/22/2011 None Full Exam - General 1995 Musculoskeletal head and neck Overall: cervical spine benign 06/22/2011 None Full Exam - General 1994 Musculoskeletal gait and station Overall: normal gait 06/22/2011 None Full Exam - General 1994 Musculoskeletal gait and station Overall: normal station 06/22/2011 None Full Exam - General 1994 Psychiatric orientation/consciousness Overall: oriented to person, place and time 06/22/2011 None Full Exam - General 1994 Psychiatric mood and affect Overall: normal mood and affect 06/22/2011 None Full Exam - General 1995 Constitutional general appearance Overall: well nourished 06/22/2011 None Full Exam - General 1995 Constitutional general appearance Overall: well developed 06/22/2011 None Full Exam - General 1994 Constitutional general appearance Overall: in no acute distress 06/22/2011 None Full Exam - General 1994 Eyes pupils and irises Overall: pupils equal, round, reactive to light and accomodation 06/22/2011 None Full Exam - General 1994 Ears/Nose/Throat oral cavity/pharynx/larynx Overall: oral mucosa clear 06/22/2011 None Full Exam - General 1995 Ears/Nose/Throat oral cavity/pharynx/larynx Overall: oropharyngeal mucosa clear 06/22/2011 None Full Exam - General 1995 Ears/Nose/Throat oral cavity/pharynx/larynx Overall: no masses 06/22/2011 None Full Exam - General 1994 Respiratory auscultation Overall: breath sounds clear bilaterally 06/22/2011 None Full Exam - General 1994 Constitutional general appearance Overall: well nourished 06/11/2011 None Full Exam - General 1994 Constitutional general appearance Overall: well developed 06/11/2011 None Full Exam - General 1994 Constitutional general appearance Overall: in no acute distress 06/11/2011 None Full Exam - General 1995 Eyes pupils and irises Overall: pupils equal, round, reactive to light and accomodation 06/11/2011 None Full Exam - General 1994 Cardiovascular auscultation of heart Overall: no murmurs 06/11/2011 None Full Exam - General 1995 Respiratory respiratory effort/rhythm Overall: normal rate 06/11/2011 None Full Exam - General 1995 Respiratory respiratory effort/rhythm Overall: no retractions 06/11/2011 None Full Exam - General 1994 Respiratory auscultation Overall: breath sounds clear bilaterally 06/11/2011 None Full Exam - General 1995 Ears/Nose/Throat oral cavity/pharynx/larynx Overall: oropharyngeal mucosa clear 06/11/2011 None Full Exam - General 1995 Ears/Nose/Throat oral cavity/pharynx/larynx Overall: no masses 06/11/2011 None Full Exam - General 1995 Ears/Nose/Throat oral cavity/pharynx/larynx Overall: oral mucosa clear 06/11/2011 None Full Exam - General 1994 Abdomen abdominal exam Overall: no tenderness 06/11/2011 None Full Exam - General 1994 Psychiatric orientation/consciousness Overall: oriented to person, place and time 06/11/2011 None Full Exam - General 1994 Psychiatric mood and affect Overall: normal mood and affect 06/11/2011 None Full Exam - General 1994 Musculoskeletal head and neck Overall: cervical spine benign 06/11/2011 None Full Exam - General 1994 Musculoskeletal head and neck Overall: head atraumatic 06/11/2011 None Full Exam - General 1994 Musculoskeletal gait and station Overall: normal gait 06/11/2011 None Full Exam - General 1994 Abdomen abdominal exam Overall: normal bowel sounds 06/11/2011 None Full Exam - General 1994 Musculoskeletal gait and station Overall: normal station 06/11/2011 None Full Exam - General 1994 Musculoskeletal lower extremity Overall: knee benign 06/11/2011 None Full Exam - General 1994 Musculoskeletal upper extremity Overall: normal shoulder 06/11/2011 None Full Exam - General 1994 Musculoskeletal upper extremity Overall: normal elbow 06/11/2011 None Full Exam - General 1994 Musculoskeletal upper extremity Overall: normal wrist 06/11/2011 None Full Exam - General 1994 Cardiovascular auscultation of heart Overall: regular rate 06/11/2011 None Full Exam - General 1994 Cardiovascular auscultation of heart Overall: normal heart sounds 06/11/2011 None Full Exam - General 1994 Neurologic coordination Overall: no tremors 03/11/2011 None Full Exam - General 1994 Neurologic cranial nerves Overall: crainial nerves 2 - 12 grossly intact 03/11/2011 None Full Exam - General 1994 Musculoskeletal head and neck Overall: cervical spine benign 03/11/2011 None Full Exam - General 1994 Musculoskeletal head and neck Overall: head atraumatic 03/11/2011 None Full Exam - General 1994 Musculoskeletal spine, ribs and pelvis Posture: lordosis 03/11/2011 None Full Exam - General 1994 Abdomen abdominal exam Overall: no tenderness 03/11/2011 None Full Exam - General 1994 Abdomen abdominal exam Overall: normal bowel sounds 03/11/2011 None Full Exam - General 1994 Cardiovascular auscultation of heart Overall: regular rate 03/11/2011 None Full Exam - General 1994 Cardiovascular auscultation of heart Overall: normal heart sounds 03/11/2011 None Full Exam - General 1994 Cardiovascular auscultation of heart Overall: no murmurs 03/11/2011 None Full Exam - General 1994 Respiratory auscultation Overall: breath sounds clear bilaterally 03/11/2011 None Full Exam - General 1994 Respiratory respiratory effort/rhythm Overall: normal rate 03/11/2011 None Full Exam - General 1994 Respiratory respiratory effort/rhythm Overall: no retractions 03/11/2011 None Full Exam - General 1994 Psychiatric mood and affect Overall: normal mood and affect 03/11/2011 None Full Exam - General 1994 Neurologic gait Overall: no ataxia, no unsteadiness 03/11/2011 None Full Exam - General 1994 Psychiatric orientation/consciousness Overall: oriented to person, place and time 03/11/2011 None Full Exam - General 1994 Constitutional general appearance Overall: well nourished 03/11/2011 None Full Exam - General 1994 Constitutional general appearance Overall: well developed 03/11/2011 None Full Exam - General 1994 Constitutional general appearance Overall: in no acute distress 03/11/2011 None Full Exam - General 1994 Constitutional general appearance Development: appears older than stated age 1003/11/2011 None Full Exam - General 1994 Ears/Nose/Throat otoscopic exam Overall: tympanic membranes clear 03/11/2011 None Full Exam - General 1994 Ears/Nose/Throat otoscopic exam Overall: external auditory canals clear 03/11/2011 None Full Exam - General 1994 Ears/Nose/Throat oral cavity/pharynx/larynx Overall: oropharyngeal mucosa clear 03/11/2011 None Full Exam - General 1994 Ears/Nose/Throat oral cavity/pharynx/larynx Overall: no masses 03/11/2011 None Full Exam - General 1994 Ears/Nose/Throat oral cavity/pharynx/larynx Overall: oral mucosa clear 03/11/2011 None Full Exam - General 1994 Musculoskeletal lower extremity Overall: knee benign 03/11/2011 None Full Exam - General 1994 Musculoskeletal lower extremity Overall: ankle benign 03/11/2011 None Full Exam - General 1994 Musculoskeletal upper extremity Overall: normal shoulder 03/11/2011 None Full Exam - General 1994 Musculoskeletal upper extremity Overall: normal elbow 03/11/2011 None Full Exam - General 1994 Musculoskeletal upper extremity Overall: normal wrist 03/11/2011 None Full Exam - General Cardiovascular auscultation of heart Overall: no murmurs 02/12/2011 None Full Exam - General Abdomen abdominal exam Overall: no tenderness 02/12/2011 None Full Exam - General Abdomen abdominal exam Overall: normal bowel sounds 02/12/2011 None Full Exam - General Musculoskeletal head and neck Overall: head atraumatic 02/12/2011 None Full Exam - General Musculoskeletal head and neck Overall: cervical spine benign 02/12/2011 None Full Exam - General Musculoskeletal right lower extremity Overall: right knee benign 02/12/2011 None Full Exam - General Musculoskeletal right lower extremity Overall: right ankle benign 02/12/2011 None Full Exam - General Musculoskeletal left lower extremity Overall: left knee benign 02/12/2011 None Full Exam - General Musculoskeletal left lower extremity Overall: left ankle benign 02/12/2011 None Full Exam - General Musculoskeletal right lower extremity Palpation - right thigh: tenderness 02/12/2011 tender laterally Full Exam - General Constitutional general appearance Overall: well nourished 02/12/2011 None Full Exam - General Ears/Nose/Throat oral cavity/pharynx/larynx Overall: oropharyngeal mucosa clear 02/12/2011 None Full Exam - General Neck inspection of neck Overall: normal size 02/12/2011 None Full Exam - General Neck inspection of neck Overall: normal appearance 02/12/2011 None Full Exam - General Neck inspection of neck Overall: no masses 02/12/2011 None Full Exam - General Respiratory auscultation Overall: breath sounds clear bilaterally 02/12/2011 None Full Exam - General Respiratory respiratory effort/rhythm Overall: no retractions 02/12/2011 None Full Exam - General Respiratory respiratory effort/rhythm Overall: normal rate 02/12/2011 None Full Exam - General Cardiovascular auscultation of heart Overall: regular rate 02/12/2011 None Full Exam - General Cardiovascular auscultation of heart Overall: normal heart sounds 02/12/2011 None Full Exam - General Constitutional general appearance Overall: well developed 02/12/2011 None Full Exam - General Constitutional general appearance Overall: in no acute distress 02/12/2011 None Full Exam - General Eyes pupils and irises Overall: pupils equal, round, reactive to light and accomodation 02/12/2011 None Full Exam - General Ears/Nose/Throat otoscopic exam Overall: external auditory canals clear 02/12/2011 None Full Exam - General Ears/Nose/Throat otoscopic exam Overall: tympanic membranes clear 02/12/2011 None Full Exam - General Ears/Nose/Throat oral cavity/pharynx/larynx Overall: oral mucosa clear 02/12/2011 None Full Exam - General Psychiatric orientation/consciousness Overall: oriented to person, place and time 02/12/2011 None Full Exam - General Psychiatric mood and affect Overall: normal mood and affect 02/12/2011 None Full Exam - General Neurologic gait Overall: no ataxia, no unsteadiness 02/12/2011 None Full Exam - General Constitutional general appearance Overall: well nourished 01/29/2011 None Full Exam - General Constitutional general appearance Overall: well developed 01/29/2011 None Full Exam - General Constitutional general appearance Overall: in no acute distress 01/29/2011 None Full Exam - General Eyes pupils and irises Overall: pupils equal, round, reactive to light and accomodation 01/29/2011 None Full Exam - General Ears/Nose/Throat otoscopic exam Overall: tympanic membranes clear 01/29/2011 None Full Exam - General Ears/Nose/Throat oral cavity/pharynx/larynx Oral mucosa: dry 01/29/2011 None Full Exam - General Respiratory auscultation Overall: breath sounds clear bilaterally 01/29/2011 None Full Exam - General Cardiovascular auscultation of heart Overall: normal heart sounds 01/29/2011 None Full Exam - General Abdomen abdominal exam Overall: no tenderness 01/29/2011 None Full Exam - General Abdomen abdominal exam Overall: normal bowel sounds 01/29/2011 None Full Exam - General Musculoskeletal right lower extremity Overall: lower leg non-tender, without crepitus or defects 01/29/2011 None Full Exam - General Neurologic mental status Overall: alert 01/29/2011 None Full Exam - General Neurologic mental status Overall: oriented 01/29/2011 None Full Exam - General Lymphatic neck nodes Overall: anterior cervical chain benign 01/29/2011 None Full Exam - General Lymphatic neck nodes Overall: posterior cervical chain benign 01/29/2011 None Full Exam - General Cardiovascular extremities Overall: no clubbing 01/29/2011 None Full Exam - General Respiratory respiratory effort/rhythm Overall: no retractions 01/29/2011 None Full Exam - General Respiratory respiratory effort/rhythm Overall: normal rate 01/29/2011 None Full Exam - General Neck inspection of neck Overall: normal appearance 01/29/2011 None Procedures Procedure Codes Date THER/PROPH/DIAG INJ SC/IM CPT-4: 93623 04/27/2017 VITAMIN B12 INJECTION CPT-4: J3420 04/27/2017 THER/PROPH/DIAG INJ SC/IM CPT-4: 79094 11/17/2016 VITAMIN B12 INJECTION CPT-4: J3420 11/17/2016 THER/PROPH/DIAG INJ SC/IM CPT-4: 64486 10/12/2016 VITAMIN B12 INJECTION CPT-4: J3420 10/12/2016 THER/PROPH/DIAG INJ SC/IM CPT-4: 80534 09/11/2016 VITAMIN B12 INJECTION CPT-4: J3420 09/11/2016 THER/PROPH/DIAG INJ SC/IM CPT-4: 53138 07/03/2016 VITAMIN B12 INJECTION CPT-4: J3420 07/03/2016 VITAMIN B12 INJECTION CPT-4: J3420 04/20/2016 THER/PROPH/DIAG INJ SC/IM CPT-4: 93082 04/20/2016 ADMIN INFLUENZA VIRUS VAC CPT-4: G0008 03/17/2016 IIV4 FLU VACC NO PRESERV ID Formatting Model/CDA Sections, Assigned to/Kathy Lopez CT: [id number] CPT-4: 34302Kynafcu 03/17/2016 THER/PROPH/DIAG INJ SC/IM CPT-4: 54538 02/13/2016 VITAMIN B12 INJECTION CPT-4: J3420 02/13/2016 URINALYSIS NONAUTO W/O SCOPE CPT-4: 26909 12/10/2015 THER/PROPH/DIAG INJ SC/IM CPT-4: 04699 12/02/2015 VITAMIN B12 INJECTION CPT-4: J3420 12/02/2015 PNEUMOCOCCAL VACC [address]: [id number] CPT-4: 71280 12/02/2015 IMMUNIZATION ADMIN CPT -4: 97204 12/02/2015 THER/PROPH/DIAG INJ SC/IM CPT-4: 63906 10/29/2015 VITAMIN B12 INJECTION CPT-4: J3420 10/29/2015 THER/PROPH/DIAG INJ SC/IM CPT-4: 81147 06/10/2015 VITAMIN B12 INJECTION CPT-4: J3420 06/10/2015 THER/PROPH/DIAG INJ SC/IM CPT-4: 63115 02/15/2014 VITAMIN B12 INJECTION CPT-4: J3420 02/15/2014 TRIAMCINOLONE ACET INJ NOS CPT-4: J3301 01/15/2014 VITAMIN B12 INJECTION CPT-4: J3420 01/15/2014 THER/PROPH/DIAG INJ SC/IM CPT-4: 66007 12/04/2013 VITAMIN B12 INJECTION CPT-4: J3420 12/04/2013 THER/PROPH/DIAG INJ SC/IM CPT-4: 79148 07/24/2013 VITAMIN B12 INJECTION CPT-4: J3420 07/24/2013 PRESCRIP TRANSMIT VIA ERX SY CPT-4: G8553 06/12/2013 VITAMIN B12 INJECTION CPT-4: J3420 05/10/2013 THER/PROPH/DIAG INJ SC/IM CPT-4: 84644 05/10/2013 TRIAMCINOLONE ACET INJ NOS CPT-4: J3301 03/06/2013 PRESCRIP TRANSMIT VIA ERX SY CPT-4: G8553 03/06/2013 ADMIN INFLUENZA VIRUS VAC CPT-4: G0008 02/20/2013 FLULAVAL VACC, 3 YRS & >, IM CPT-4: Q2036 02/20/2013 THER/PROPH/DIAG INJ SC/IM CPT-4: 46450 02/20/2013 VITAMIN B12 INJECTION CPT-4: J3420 02/20/2013 THER/PROPH/DIAG INJ SC/IM CPT-4: 62420 12/26/2012 TRIAMCINOLONE ACET INJ NOS CPT-4: J3301 12/26/2012 THER/PROPH/DIAG INJ SC/IM CPT-4: 28607 12/21/2012 VITAMIN B12 INJECTION CPT-4: J3420 12/21/2012 THER/PROPH/DIAG INJ SC/IM CPT-4: 05435 11/16/2012 VITAMIN B12 INJECTION CPT-4: J3420 11/16/2012 TB INTRADERMAL TEST (includes injection fee) CPT-4: 69559 09/26/2012 THER/PROPH/DIAG INJ SC/IM CPT-4: 20625 09/12/2012 VITAMIN B12 INJECTION CPT-4: J3420 09/12/2012 TRIAMCINOLONE ACET INJ NOS CPT-4: J3301 08/11/2012 VITAMIN B12 INJECTION CPT-4: J3420 08/11/2012 THER/PROPH/DIAG INJ SC/IM CPT-4: 41006 08/11/2012 VITAMIN B12 INJECTION CPT-4: J3420 07/13/2012 THER/PROPH/DIAG INJ SC/IM CPT-4: 36673 07/13/2012 THER/PROPH/DIAG INJ SC/IM CPT-4: 76920 05/26/2012 TRIAMCINOLONE ACET INJ NOS CPT-4: J3301 05/26/2012 VITAMIN B12 INJECTION CPT-4: J3420 05/26/2012 ADMIN INFLUENZA VIRUS VAC CPT-4: G0008 03/02/2012 FLULAVAL VACC, 3 YRS & >, IM CPT-4: Q2036 03/02/2012 PRESCRIP TRANSMIT VIA ERX SY CPT-4: G8553 02/15/2012 TRIAMCINOLONE ACET INJ NOS CPT-4: J3301 01/13/2012 VITAMIN B12 INJECTION CPT-4: J3420 12/21/2011 VITAMIN B12 INJECTION CPT-4: J3420 10/30/2011 THER/PROPH/DIAG INJ SC/IM CPT-4: 32059 10/30/2011 THER/PROPH/DIAG INJ SC/IM CPT-4: 64431 10/02/2011 VITAMIN B12 INJECTION CPT-4: J3420 10/02/2011 TRIAMCINOLONE ACET INJ NOS CPT-4: J3301 10/02/2011 PRESCRIP TRANSMIT VIA ERX SY CPT-4: G8553 10/02/2011 VITAMIN B12 INJECTION CPT-4: J3420 09/01/2011 URINALYSIS NONAUTO W/O SCOPE CPT-4: 71064 08/03/2011 VITAMIN B12 INJECTION CPT-4: J3420 08/03/2011 THER/PROPH/DIAG INJ SC/IM CPT-4: 31471 08/03/2011 THER/PROPH/DIAG INJ SC/IM CPT-4: 18358 06/11/2011 VITAMIN B12 INJECTION CPT-4: J3420 06/11/2011 ROUTINE VENIPUNCTURE CPT-4: 19590 06/11/2011 THER/PROPH/DIAG INJ SC/IM CPT-4: 93111 02/23/2011 VITAMIN B12 INJECTION CPT-4: J3420 02/23/2011 ADMIN INFLUENZA VIRUS VAC CPT-4: G0008 02/23/2011 FLULAVAL VACC, 3 YRS & >, IM CPT-4: Q2036 02/23/2011 Vital Signs Date Vital 04/27/2017 Blood Pressure 1: 138/78 Code : 8480-6 BMI: 30.4 Code : 67059-3 Heart Rate 1 : 96 bpm Height: 5'9" SpO2: 97% Weight: 206 lbs 04/06/2017 Blood Pressure 1: 108/80 Code : 8480-6 BMI: 31.0 Code : 12945-9 Heart Rate 1 : 96 bpm Height: 5'9" SpO2: 98% Weight: 210 lbs 02/25/2017 Blood Pressure 1: 132/80 Code : 8480-6 BMI: 32.5 Code : 98627-6 Heart Rate 1 : 112 bpm Height: 5'9" SpO2: 94% Weight: 220 lbs 01/19/2017 Blood Pressure 1: 122/68 Code : 8480-6 Heart Rate 1: 100 bpm Height: 5'9" SpO2: 95% Weight: 11/17/2016 Blood Pressure 1: 132/74 Code : 8480-6 BMI: 32.2 Code : 53704-1 Heart Rate 1 : 98 bpm Height: 5'9" SpO2: 94% Weight: 218 lbs 10/12/2016 Blood Pressure 1: 130/82 Code : 8480-6 BMI: 32.2 Code : 06022-0 Heart Rate 1 : 97 bpm Height: 5'9" SpO2: 94% Weight: 218 lbs 08/18/2016 Blood Pressure 1: 132/78 Code : 8480-6 BMI: 32.0 Code : 73293-3 Heart Rate 1 : 113 bpm Height: 5'9" SpO2: 98% Weight: 217 lbs 08/07/2016 Blood Pressure 1: 126/70 Code : 8480-6 BMI: 33.1 Code : 25151-3 Heart Rate 1 : 102 bpm Height: 5'9" SpO2: 94% Weight: 224 lbs 07/31/2016 Blood Pressure 1: 134/66 Code : 8480-6 BMI: 31.7 Code : 77835-9 Heart Rate 1 : 97 bpm Height: 5'9" SpO2: 95% Temperature: 36.4 (C) / 97.6 (F) Weight: 215 lbs 07/15/2016 Blood Pressure 1: 126/62 Code : 8480-6 Heart Rate 1: 105 bpm Height: 5'9" Weight: 07/07/2016 Blood Pressure 1: 106/54 Code : 8480-6 BMI: 31.7 Code : 35246-2 Heart Rate 1 : 93 bpm Height: 5'9" SpO2: 97% Weight: 215 lbs 06/25/2016 Heart Rate 1: 99 bpm Height: 5'9" SpO2: 95% Weight: 05/07/2016 Blood Pressure 1: 124/86 Code : 8480-6 BMI: 28.5 Code : 52870-4 Heart Rate 1 : 100 bpm Height: 5'9" SpO2: 96% Weight: 193 lbs 04/20/2016 Blood Pressure 1: 120/80 Code : 8480-6 BMI: 28.5 Code : 26991-5 Heart Rate 1 : 86 bpm Height: 5'9" SpO2: 96% Weight: 193 lbs 03/17/2016 Blood Pressure 1: 120/70 Code : 8480-6 BMI: 29.1 Code : 08553-7 Heart Rate 1 : 103 bpm Height: 5'9" SpO2: 96% Weight: 197 lbs 03/05/2016 Blood Pressure 1: 124/78 Code : 8480-6 Heart Rate 1: 82 bpm Height: 5'9" SpO2: 94% Weight: 02/28/2016 Blood Pressure 1: 94/50 Code : 8480-6 Heart Rate 1: 91 bpm Height: 5'9" SpO2: 94% Weight: 02/13/2016 Blood Pressure 1: 128/86 Code : 8480-6 BMI: 28.6 Code : 19571-4 Heart Rate 1 : 100 bpm Height: 5'9" SpO2: 96% Weight: 194 lbs 08/15/2015 Blood Pressure 1: 128/68 Code : 8480-6 BMI: 27.3 Code : 62207-5 Heart Rate 1 : 72 bpm Height: 5'9" SpO2: 92% Weight: 185 lbs 07/25/2015 Blood Pressure 1: 122/76 Code : 8480-6 BMI: 27.5 Code : 24072-1 Heart Rate 1 : 70 bpm Height: 5'9" SpO2: 94% Weight: 186 lbs 06/25/2015 Blood Pressure 1: 118/54 Code : 8480-6 BMI: 26.7 Code : 94079-8 Heart Rate 1 : 98 bpm Height: 5'9" SpO2: 97% Weight: 181 lbs 06/10/2015 Blood Pressure 1: 110/68 Code : 8480-6 Heart Rate 1: 80 bpm Height: SpO2: 98% Weight: 05/08/2015 Blood Pressure 1: 120/68 Code : 8480-6 BMI: 27.5 Code : 28334-4 Heart Rate 1 : 95 bpm Height: 5'9" SpO2: 96% Weight: 186 lbs 03/26/2015 Blood Pressure 1: 120/80 Code : 8480-6 Heart Rate 1: 102 bpm Respiratory Rate: 18 bpm SpO2: 92% Weight: 186 lbs 03/15/2015 Blood Pressure 1: 122/64 Code : 8480-6 BMI: 26.6 Code : 95644-6 Heart Rate 1 : 96 bpm Height: 5'9" SpO2: 96% Weight: 180 lbs 01/10/2015 Blood Pressure 1: 120/68 Code : 8480-6 BMI: 27.5 Code : 70957-3 Heart Rate 1 : 90 bpm Height: 5'9" Weight: 186 lbs 12/21/2014 Blood Pressure 1: 118/78 Code : 8480-6 BMI: 27.2 Code : 81903-5 Heart Rate 1 : 61 bpm Height: 5'9" SpO2: 97% Weight: 184 lbs 10/05/2014 Blood Pressure 1: 118/64 Code : 8480-6 BMI: 27.0 Code : 14153-4 Heart Rate 1 : 76 bpm Height: 5'9" Weight: 183 lbs 06/14/2014 Blood Pressure 1: 120/78 Code : 8480-6 BMI: 26.6 Code : 54802-9 Heart Rate 1 : 96 bpm Height: 5'9" Weight: 180 lbs 01/19/2014 Blood Pressure 1: 128/76 Code : 8480-6 BMI: 27.3 Code : 60819-1 Heart Rate 1 : 82 bpm Height: 5'9" Weight: 185 lbs 01/15/2014 Blood Pressure 1: 110/62 Code : 8480-6 BMI: 27.9 Code : 34331-5 Heart Rate 1 : 80 bpm Height: 5'9" Weight: 189 lbs 10/20/2013 Blood Pressure 1: 112/62 Code : 8480-6 BMI: 30.1 Code : 03946-2 Heart Rate 1 : 76 bpm Height: 5'9" Temperature: 37.1 (C) / 98.8 (F) Weight: 204 lbs 07/24/2013 Blood Pressure 1: 102/58 Code : 8480-6 Head Circumference (cm): 244 cm Heart Rate 1: 95 bpm Weight: 209 lbs 06/23/2013 Blood Pressure 1: 128/68 Code : 8480-6 Heart Rate 1: 84 bpm Weight: 209 lbs 06/12/2013 Blood Pressure 1: 112/70 Code : 8480-6 BMI: 30.6 Code : 83987-5 Heart Rate 1 : 92 bpm Height: 5'9" Weight: 207 lbs 05/23/2013 Blood Pressure 1: 120/78 Code : 8480-6 Heart Rate 1: 84 bpm Weight: 05/19/2013 Blood Pressure 1: 126/78 Code : 8480-6 BMI: 30.3 Code : 38049-9 Heart Rate 1 : 88 bpm Height: 5'9" Weight: 205 lbs 05/16/2013 Blood Pressure 1: 126/66 Code : 8480-6 BMI: 30.3 Code : 16244-4 Heart Rate 1 : 84 bpm Height: 5'9" Weight: 205 lbs 03/06/2013 Blood Pressure 1: 128/76 Code : 8480-6 BMI: 30.6 Code : 88936-3 Heart Rate 1 : 88 bpm Height: 5'9" Weight: 207 lbs 12/26/2012 Blood Pressure 1: 142/70 Code : 8480-6 BMI: 29.6 Code : 55894-5 Heart Rate 1 : 100 bpm Height: 5'9" Weight: 200 lbs 8 oz 11/21/2012 Blood Pressure 1: 132/80 Code : 8480-6 BMI: 29.5 Code : 80928-5 Heart Rate 1 : 96 bpm Height: 5'9" Weight: 200 lbs 07/21/2012 Blood Pressure 1: 96/40 Code : 8480-6 Heart Rate 1: 136 bpm Temperature: 37.4 (C) / 99.4 (F) Weight: 07/13/2012 Blood Pressure 1: 118/64 Code : 8480-6 Heart Rate 1: 108 bpm Weight: 202 lbs 05/26/2012 Blood Pressure 1: 104/64 Code : 8480-6 Heart Rate 1: 104 bpm Weight: 202 lbs 02/15/2012 Blood Pressure 1: 118/70 Code : 8480-6 Heart Rate 1: 68 bpm Weight: 199 lbs 01/13/2012 Blood Pressure 1: 116/70 Code : 8480-6 Heart Rate 1: 100 bpm Weight: 196 lbs 12/21/2011 Blood Pressure 1: 118/76 Code : 8480-6 Heart Rate 1: 102 bpm Respiratory Rate: 18 bpm SpO2: 96% Weight: 197 lbs 10/02/2011 Blood Pressure 1: 100/64 Code : 8480-6 Heart Rate 1: 100 bpm Respiratory Rate: 20 bpm Temperature: 36.9 (C) / 98.4 (F) Weight: 198 lbs 09/01/2011 Blood Pressure 1: 114/68 Code : 8480-6 Heart Rate 1: 112 bpm Weight: 199 lbs 08/03/2011 Blood Pressure 1: 130/78 Code : 8480-6 Heart Rate 1: 99 bpm Respiratory Rate : 16 bpm SpO2: 98% Weight: 197 lbs 06/29/2011 Blood Pressure 1: 146/76 Code : 8480-6 Heart Rate 1: 64 bpm Respiratory Rate : 16 bpm Weight: 196 lbs 8 oz 06/22/2011 Blood Pressure 1: 110/70 Code : 8480-6 Heart Rate 1: 92 bpm Respiratory Rate : 16 bpm Weight: 196 lbs 06/11/2011 Blood Pressure 1: 118/74 Code : 8480-6 BMI: 29.2 Code : 01502-2 Heart Rate 1 : 64 bpm Height: 5'9" Respiratory Rate: 16 bpm Weight: 198 lbs 03/11/2011 Blood Pressure 1: 106/60 Code : 8480-6 BMI: 28.8 Code : 27374-8 Heart Rate 1 : 100 bpm Height: 5'9" SpO2: 97% Weight: 195 lbs 02/12/2011 Weight: 192 lbs 01/29/2011 Blood Pressure 1: 100/64 Code : 8480-6 BMI: 28.1 Code : 73790-1 Heart Rate 1 : 100 bpm Height: 5'9" Respiratory Rate: 20 bpm Weight: 190 lbs 8 oz Functional Status No Functional Status data History of Present Illness Symptom Name Status Result Effective Date Notes vision change Location in both eyes 04/27/2017 None Hospital Follow Up _ Other: fall, vision changes 04/27/2017 None Hospital Follow Up Quality acute 04/27/2017 None Hospital Follow Up Onset of Symptom 10 days ago 04/27/2017 None vision change Quality acute 04/27/2017 None vision change Onset and Resolution sudden in onset 04/27/2017 None vision change Onset of Symptom 10 days ago 04/27/2017 None vision change Limitation on Activities does not limit activities 04/27/2017 None vision change Severity mild 04/27/2017 None vision change Frequency of Episodes unchanged 04/27/2017 None vision change Triggers no known associated factors 04/27/2017 None vision change Pertinent Findings Denies cough 04/27/2017 None vision change Pertinent Findings Denies dyspnea 04/27/2017 None vision change Pertinent Findings Denies eye swelling 04/27/2017 None vision change Pertinent Findings Denies facial pain 04/27/2017 None ~generic Pertinent Findings Denies fever 04/06/2017 None hemorrhoids Quality chronic 04/06/2017 None hemorrhoids Onset and Resolution ongoing 04/06/2017 None hemorrhoids Severity mild 04/06/2017 None hemorrhoids Limitation on Activities does not limit activities 04/06/2017 None hemorrhoids Frequency of Episodes increasing 04/06/2017 None hemorrhoids Pertinent Findings Denies fever 04/06/2017 None hemorrhoids Pertinent Findings pain 04/06/2017 None hemorrhoids Pertinent Findings Denies vomiting 04/06/2017 None pain, generalized Location diffusely 02/25/2017 neck, right ankle pain, generalized Quality chronic 02/25/2017 None pain, generalized Onset and Resolution ongoing 02/25/2017 None pain, generalized Limitation on Activities moderately limits activities 02/25/2017 None pain, generalized Frequency of Episodes unchanged 02/25/2017 None pain, generalized Triggers no known associated factors 02/25/2017 None pain, generalized Exacerbating Factors exertion 02/25/2017 None pain, generalized Location diffusely 01/19/2017 neck, right ankle pain, generalized Quality chronic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 skin lesion Frequency of Episodes decreasing 06/12/2013 None skin lesion Significant Medical Conditions trauma 06/12/2013 None skin lesion Triggers no known associated factors 06/12/2013 None skin lesion Exacerbating Factors medication 06/12/2013 None skin lesion Quality acute 05/29/2013 None skin lesion Location Left Knee 05/29/2013 None skin lesion Onset and Resolution ongoing 05/29/2013 None skin lesion Onset of Symptom 2 weeks ago 05/29/2013 None skin lesion Severity mild 05/29/2013 None skin lesion Frequency of Episodes decreasing 05/29/2013 None skin lesion Significant Medical Conditions trauma 05/29/2013 None skin lesion Pertinent Findings Denies fever 05/29/2013 None skin lesion Quality acute 05/23/2013 None skin lesion Location Left Knee 05/23/2013 None skin lesion Onset and Resolution ongoing 05/23/2013 None skin lesion Onset of Symptom 2 weeks ago 05/23/2013 None skin lesion Severity mild 05/23/2013 None skin lesion Frequency of Episodes decreasing 05/23/2013 None skin lesion Significant Medical Conditions trauma 05/23/2013 None skin lesion Pertinent Findings Denies fever 05/23/2013 None wound follow up Procedure Performed left knee ulcer 05/19/2013 fell at home wound follow up Instructions for wound care daily 05/19/2013 None wound follow up Additional Comments The patient is doing well. 05/19/2013 None wound follow up Pertinent Findings Denies fever 05/19/2013 None wound follow up Pertinent Findings pain 05/19/2013 None wound follow up Pertinent Findings Denies hematoma 05/19/2013 None wound follow up Pertinent Findings Denies excess swelling 05/19/2013 None Hospital Follow Up _ pain 05/16/2013 left [id number] to left knee-applying neosporin and covering with gauze Hospital Follow Up Quality acute 05/16/2013 None Hospital Follow Up Onset of Symptom 1 weeks ago 05/16/2013 None Hospital Follow Up Onset and Resolution ongoing 05/16/2013 None Hospital Follow Up Significant Medical Conditions trauma 05/16/2013 None Hospital Follow Up Mechanism of injury direct trauma 05/16/2013 None Hospital Follow Up Alleviating Factors rest 05/16/2013 None Hospital Follow Up Pertinent Findings pain 05/16/2013 None Hospital Follow Up Pertinent Findings Denies fever 05/16/2013 None nasal allergies Location in both nares 03/06/2013 None nasal allergies Onset and Resolution gradual in onset 03/06/2013 None nasal allergies Pertinent Findings hoarseness 03/06/2013 None nasal allergies Pertinent Findings cough 03/06/2013 nasal congestion/drainage nasal allergies Severity moderate 03/06/2013 None nasal allergies Frequency of Episodes increasing 03/06/2013 None nasal allergies Significant Medical Conditions allergic rhinitis 03/06/2013 None nasal allergies Significant Medications antihistamines 03/06/2013 None nasal allergies Triggers known allergens 03/06/2013 None nasal allergies Pertinent Findings Denies nasal obstruction 03/06/2013 None hypertension Quality chronic 12/26/2012 None hypertension Onset and Resolution ongoing 12/26/2012 None ankle pain Location in the lateral region 12/26/2012 bilaterally ankle pain Quality insidious 12/26/2012 None ankle pain Onset and Resolution ongoing 12/26/2012 None ankle pain Limitation on Activities allows weight bearing activity 12/26/2012 None ankle pain Significant Medical Conditions prior history of ankle instability 12/26/2012 None ankle pain Alleviating Factors rest 12/26/2012 None ankle pain Exacerbating Factors weight bearing 12/26/2012 None ankle pain Exacerbating Factors ankle motion 12/26/2012 None ankle pain Exacerbating Factors standing 12/26/2012 None ankle pain Assistive devices walker 12/26/2012 None ankle pain Pertinent Findings bruising 12/26/2012 None ankle pain Pertinent Findings decreased range of motion 12/26/2012 None ankle pain Pertinent Findings pain with movement 12/26/2012 The patient also complains of pain in her knees, wrists, top of her feet with bruising on the top of her feet. knee pain Location in the anterior region 11/21/2012 None knee pain Quality catching 11/21/2012 None knee pain Quality dull pain 11/21/2012 None knee pain Frequency of Episodes unchanged 11/21/2012 None knee pain Severity mild 11/21/2012 --Worsened knee pain Pertinent Findings Denies bruising 11/21/2012 None knee pain Pertinent Findings limping 11/21/2012 None knee pain Pertinent Findings Denies numbness 11/21/2012 None knee pain Pertinent Findings pain with movement 11/21/2012 None knee pain Pertinent Findings stiffness 11/21/2012 None knee pain Exacerbating Factors weight bearing 11/21/2012 None knee pain Exacerbating Factors flexion of the knee 11/21/2012 None knee pain Onset of Symptom 10+ years ago 11/21/2012 None fever Quality acute None fever Onset and Resolution sudden in onset 07/21/2012 None fever Onset of Symptom 2 hours ago 07/21/2012 None fever Temperature 104 degrees 07/21/2012 None fever Alleviating Factors Tylenol 07/21/2012 for fever fever Pertinent Findings Denies cough 07/21/2012 None fever Pertinent Findings nausea 07/21/2012 None fever Pertinent Findings Denies vomiting 07/21/2012 None fever Pertinent Findings upper respiratory tract symptoms 07/21/2012 None fever Triggers no known associated factors 07/21/2012 None foot pain Location on the right 07/13/2012 None foot pain Quality tenderness 07/13/2012 None foot pain Quality aching 07/13/2012 states it radiated into upper leg and hip foot pain Onset and Resolution gradual in onset 07/13/2012 None foot pain Onset and Resolution ongoing 07/13/2012 None foot pain Limitation on Activities restricts weight bearing activity 07/13/2012 None foot pain Limitation on Activities moderately limits activities 07/13/2012 None foot pain Severity moderate 07/13/2012 None foot pain Significant Medications narcotics 07/13/2012 None foot pain Mechanism of injury direct trauma 07/13/2012 Pt states that she has fallen on her foot off and on- she has weak ankles, her right ankle gets weak then "pulls the lower leg and femur out of alignment". foot pain Alleviating Factors joint immobilizer 07/13/2012 at ankle foot pain Exacerbating Factors walking 07/13/2012 None foot pain Assistive devices orthotics 07/13/2012 cane foot pain Initial treatment narcotics 07/13/2012 None foot pain Initial treatment muscle relaxors 07/13/2012 None foot pain Pertinent Findings Denies bruising 07/13/2012 None foot pain Pertinent Findings Denies clicking 07/13/2012 None foot pain Pertinent Findings decreased range of motion 07/13/2012 None foot pain Pertinent Findings instability 07/13/2012 None foot pain Pertinent Findings limping 07/13/2012 None foot pain Pertinent Findings pain with movement 07/13/2012 None foot pain Pertinent Findings swelling 07/13/2012 None foot pain Significant Medications NSAID' s 07/13/2012 None foot pain Onset of Symptom DOI: 201105/26/2012 around this date states she fell foot pain Pertinent Findings limping 05/26/2012 None foot pain Pertinent Findings Denies bruising 05/26/2012 None foot pain Location on the right 05/26/2012 None foot pain Quality acute 05/26/2012 None foot pain Onset and Resolution ongoing 05/26/2012 None foot pain Limitation on Activities allows weight bearing activity 05/26/2012 None foot pain Significant Medications NSAID' s 05/26/2012 None foot pain Mechanism of injury rotational 05/26/2012 twisted ankle about 3 weeks ago and has right 4th and 5th toe pain foot pain Alleviating Factors non weight bearing 05/26/2012 rest helps foot pain Exacerbating Factors walking 05/26/2012 None foot pain Pertinent Findings Denies numbness 05/26/2012 None foot pain Pertinent Findings Denies swelling 05/26/2012 None foot pain Pertinent Findings Denies tingling 05/26/2012 None foot pain Initial treatment ice 05/26/2012 helped with the swelling foot pain Pertinent Findings pain with movement 05/26/2012 States she favors the right foot and it causes knee and hip pain. new lesion Location-Major on the chest 02/15/2012 bruising and tenderness to left chest wall. Painful respirations. States she fell on an end table and hit her left breast/chest on the table. gastroesophageal reflux Quality chronic 02/15/2012 None gastroesophageal reflux Onset and Resolution ongoing 02/15/2012 None gastroesophageal reflux Onset of Symptom during adulthood 02/15/2012 States after eating she will feel like her food is going to come back up-gets a nasty taste in her mouth. gastroesophageal reflux Severity mild 02/15/2012 None gastroesophageal reflux Frequency of Episodes most meals 02/15/2012 None gastroesophageal reflux Diet includes spicy foods 02/15/2012 None gastroesophageal reflux Diet includes chocolate 02/15/2012 None gastroesophageal reflux Significant Medications antacids 02/15/2012 None new lesion Quality acute 02/15/2012 None new lesion Onset and Resolution sudden in onset 02/15/2012 None new lesion Onset of Symptom 2 days ago 02/15/2012 None new lesion Frequency of Episodes increasing 02/15/2012 None new lesion Limitation on Activities moderately limits activities 02/15/2012 None new lesion Severity moderate 02/15/2012 States it is painful to breath sinus congestion Onset and Resolution gradual in onset 01/13/2012 None sinus congestion Pertinent Findings decreased energy level 01/13/2012 None sinus congestion Pertinent Findings Denies cough 01/13/2012 None sinus congestion Pertinent Findings nasal obstruction 01/13/2012 None sinus congestion Onset of Symptom _ weeks ago 01/13/2012 None sinus congestion Severity mild 01/13/2012 None sinus congestion Frequency of Episodes increasing 01/13/2012 None sinus congestion Timing of Episodes all day long 01/13/2012 None sinus congestion Significant Medical Conditions allergic rhinitis 01/13/2012 None sinus congestion Triggers allergens 01/13/2012 Denies fever, colored drainage, headache, ear pain, or sore throat. sinus congestion Exacerbating Factors allergen exposure 01/13/2012 None knee pain Onset of Symptom 4 months ago 12/21/2011 None knee pain Frequency of Episodes increasing 12/21/2011 None knee pain Quality catching 12/21/2011 None knee pain Pertinent Findings sensation of buckling 12/21/2011 kneeling, stairs, walking for long period causes pain wheezing Onset and Resolution worse during the day 12/21/2011 None wheezing Pertinent Findings cough 12/21/2011 None wheezing Onset of Symptom 4 months ago 12/21/2011 None wheezing Quality intermittent 12/21/2011 None wheezing Severity mild 12/21/2011 None wheezing Frequency of Episodes increasing 12/21/2011 None wheezing Significant Medical Conditions asthma 12/21/2011 None wheezing Triggers known allergens 12/21/2011 None knee pain Mechanism of injury twisting 12/21/2011 None knee pain Alleviating Factors rest 12/21/2011 None knee pain Exacerbating Factors weight bearing 12/21/2011 None knee pain Exacerbating Factors flexion of the knee 12/21/2011 None knee pain Exacerbating Factors extension of the knee 12/21/2011 None knee pain Pertinent Findings Denies clicking 12/21/2011 None knee pain Pertinent Findings instability 12/21/2011 None knee pain Pertinent Findings limping 12/21/2011 None nasal allergies Location in both nares 10/02/2011 None nasal allergies Onset and Resolution ongoing 10/02/2011 None nasal allergies Severity moderate 10/02/2011 States she needs an allergy shot- states she has had one in the past that helps. nasal allergies Frequency of Episodes increasing 10/02/2011 None nasal allergies Significant Medical Conditions allergic rhinitis 10/02/2011 None nasal allergies Significant Medications antihistamines 10/02/2011 None nasal allergies Triggers exposure to grass/pollens 10/02/2011 None nasal allergies Triggers season change 10/02/2011 None hyperlipidemia Severity moderate 10/02/2011 None hyperlipidemia Significant Medical Conditions obesity 10/02/2011 None hyperlipidemia Significant Medications statin 10/02/2011 None hyperlipidemia Alleviating Factors medication 10/02/2011 None hyperlipidemia Exacerbating Factors diet 10/02/2011 States she does eat chocolate bars, but not "excessively." knee pain Location in the anterior region 10/02/2011 None knee pain Quality dull pain 10/02/2011 None knee pain Quality catching 10/02/2011 None knee pain Onset of Symptom _ months ago 10/02/2011 None knee pain Frequency of Episodes unchanged 10/02/2011 None knee pain Severity mild 10/02/2011 None shoulder pain Location diffusely 09/01/2011 None shoulder pain Quality acute 09/01/2011 None shoulder pain Quality throbbing 09/01/2011 None shoulder pain Pertinent Findings limited range of motion 09/01/2011 None shoulder pain Pertinent Findings stiffness 09/01/2011 None shoulder pain Mechanism of injury fall onto the shoulder 09/01/2011 states fell August 28 at home. c/o bilateral shoulder, arm and elbow pain with bruising. c/o right knee and ankle and foot pain elbow pain Location in the medial region 09/01/2011 None elbow pain Location in the posterior region 09/01/2011 None elbow pain Quality sharp pain 09/01/2011 None elbow pain Onset and Resolution sudden in onset 09/01/2011 None elbow pain Onset of Symptom 4 days ago 09/01/2011 States she fell in her kitchen on Wednesday. States her right knee and ankle gave out on her and she feel slightly backwards hitting both her arms and her buttock. States her buttock hit a water tub with dishes in it that landed on the floor. States she has bruising to both her arms. elbow pain Mechanism of injury direct trauma 09/01/2011 None elbow pain Alleviating Factors ice compression 09/01/2011 None elbow pain Alleviating Factors rest 09/01/2011 None elbow pain Severity moderate 09/01/2011 None neck pain Location diffusely 09/01/2011 None neck pain Quality acute 09/01/2011 None neck pain Onset and Resolution ongoing 09/01/2011 None neck pain Onset of Symptom 4 days ago 09/01/2011 after falling. neck pain Limitation on Activities does not limit activities 09/01/2011 None neck pain Frequency of Episodes increasing 09/01/2011 None neck pain Triggers activity 09/01/2011 None neck pain Mechanism of injury low energy 09/01/2011 None neck pain Radiating does not radiate 09/01/2011 None shoulder pain Onset of Symptom 4 days ago 09/01/2011 after falling shoulder pain Limitation on Activities does not limit activities 09/01/2011 None shoulder pain Frequency of Episodes unchanged 09/01/2011 None shoulder pain Triggers activity 09/01/2011 None vaginal discharge Quality white 08/03/2011 None vaginal discharge Onset and Resolution sudden in onset 08/03/2011 None vaginal discharge Severity mild 08/03/2011 None vaginal discharge Frequency of Episodes unchanged 08/03/2011 None urinary frequency Quality acute 08/03/2011 None urinary frequency Onset and Resolution gradual in onset 08/03/2011 None urinary frequency Limitation on Activities does not limit activities 08/03/2011 None urinary frequency Frequency of Episodes daily 08/03/2011 None wrist pain Quality dull pain 06/29/2011 None wrist pain Onset of Symptom 10 days ago 06/29/2011 None weight gain/obesity Location on the abdomen 06/29/2011 None weight gain/obesity Quality chronic 06/29/2011 None weight gain/obesity Onset and Resolution ongoing 06/29/2011 None wrist pain Frequency of Episodes daily 06/29/2011 None wrist pain Limitation on Activities moderately limits activities 06/29/2011 pt states that her wrists hurt with all of her activities, hurts to write wrist pain Severity moderate 06/29/2011 None wrist pain Pertinent Findings bruising 06/29/2011 None wrist pain Pertinent Findings clicking 06/29/2011 None wrist pain Pertinent Findings decreased range of motion 06/29/2011 None wrist pain Pertinent Findings pain with movement 06/29/2011 None wrist pain Pertinent Findings Denies redness 06/29/2011 None wrist pain Pertinent Findings Denies swelling 06/29/2011 None wrist pain Pertinent Findings Denies warmth 06/29/2011 None wrist pain Pertinent Findings weakness 06/29/2011 None wrist pain Exacerbating Factors dorsiflexion 06/29/2011 None wrist pain Exacerbating Factors palmar flexion 06/29/2011 None wrist pain Exacerbating Factors wrist motion 06/29/2011 None wrist pain Alleviating Factors rest 06/29/2011 None wrist pain Mechanism of injury direct trauma 06/29/2011 pt fell at home weight gain/obesity Triggers no known associated factors 06/29/2011 None weight gain/obesity Triggers sedentary lifestyle 06/29/2011 None weight gain/obesity Exacerbating Factors medication 06/29/2011 seroquel wrist pain Location in the radial region 06/22/2011 None wrist pain Quality dull pain 06/22/2011 None knee pain Quality sharp pain 06/22/2011 rt knee wrist pain Onset of Symptom 1 days ago 06/22/2011 Fell at home wrist pain Limitation on Activities does not limit activities 06/22/2011 None wrist pain Severity moderate 06/22/2011 None knee pain Mechanism of injury direct trauma 06/22/2011 Fell at home knee pain Alleviating Factors ice compression 06/22/2011 None wrist pain Alleviating Factors ice compression 06/22/2011 None wrist pain Exacerbating Factors dorsiflexion 06/22/2011 None knee pain Onset of Symptom 1 days ago 06/22/2011 None wrist pain Mechanism of injury direct trauma 06/22/2011 Fell at home hitting the tops on her hands/wrists and landing on her right knee. ankle pain Onset of Symptom DOI: 201006/11/2011 Pt fell and states she injured her right side - she is unsure of how or why she fell knee pain Onset of Symptom DOI: 201006/11/2011 Pt fell and stated she injured her right side knee pain Mechanism of injury fall onto knee 06/11/2011 None ankle pain Mechanism of injury direct trauma 06/11/2011 None ankle pain Assistive devices walker 06/11/2011 None elbow pain Onset of Symptom DOI: 201006/11/2011 pt fell and states she injured her right side elbow pain Mechanism of injury fall onto the elbow 06/11/2011 None elbow pain Associated Injuries shoulder 06/11/2011 None elbow pain Quality sharp pain 06/11/2011 None knee pain Quality grinding 06/11/2011 hx of knee injury/pain ankle pain Quality aching 06/11/2011 hx of ankle fracture/pain knee pain Location at the joint line 03/11/2011 None shortness of breath Quality chronic 03/11/2011 None shortness of breath Onset and Resolution ongoing 03/11/2011 None shortness of breath Onset of Symptom during adulthood 03/11/2011 None shortness of breath Frequency of Episodes daily 03/11/2011 None shortness of breath Triggers activity 03/11/2011 pt to have a study done at [facility] [employer] [id number] shortness of breath Triggers exertion 03/11/2011 None shortness of breath Triggers heat 03/11/2011 None shortness of breath Triggers stress 03/11/2011 None knee pain Quality sharp pain 03/11/2011 None knee pain Quality acute 03/11/2011 None knee pain Quality locking 03/11/2011 None knee pain Limitation on Activities restricts weight bearing activity 03/11/2011 immediately after kneeling or sitting on ground with legs crossed knee pain Significant Medical Conditions prior history of chronic knee instability 03/11/2011 None ankle pain Quality insidious 03/11/2011 None ankle pain Onset and Resolution ongoing 03/11/2011 None ankle pain Limitation on Activities allows weight bearing activity 03/11/2011 None ankle pain Significant Medical Conditions prior history of ankle instability 03/11/2011 None ankle pain Location in the lateral region 03/11/2011 bilaterally ankle pain Assistive devices AFO 03/11/2011 pt has seen a specialist in the past- fatigue Quality chronic 03/11/2011 None fatigue Onset and Resolution ongoing 03/11/2011 None fatigue Onset of Symptom 5+ years ago 03/11/2011 None fatigue Limitation on Activities moderately limits activities 03/11/2011 None fatigue Triggers activity 03/11/2011 None fatigue Triggers exercise 03/11/2011 None fatigue Triggers exertion 03/11/2011 None fatigue Triggers stress 03/11/2011 None fatigue Alleviating Factors rest 03/11/2011 None fatigue Pertinent Findings back pain 03/11/2011 None fatigue Pertinent Findings depressed mood 03/11/2011 None abdominal pain Quality dull 02/12/2011 None abdominal pain Length of Episodes 2 weeks 02/12/2011 fell "a couple" weeks ago and hit her abdomen shortness of breath Onset of Symptom 2 weeks ago 02/12/2011 after falling at home shortness of breath Alleviating Factors inhalers / nebulizer 02/12/2011 oxygen at night knee pain Mechanism of injury direct trauma 02/12/2011 None knee pain Mechanism of injury fall onto knee 02/12/2011 fell at home into the shower knee pain Alleviating Factors rest 02/12/2011 and pt went to her chiropractor/ ear nose and throat specialist this week and was" worked on" and she has been feeling better shortness of breath Alleviating Factors rest 02/12/2011 pt states that her shortness of breath got better after her ear nose and throat specialist adjusted her pelvis gastroesophageal reflux Quality heartburn 01/29/2011 None gastroesophageal reflux Onset and Resolution ongoing 01/29/2011 None gastroesophageal reflux Severity mild 01/29/2011 None gastroesophageal reflux Alleviating Factors proton pump inhibitor 01/29/2011 None joint complaint Location on the right ankle 01/29/2011 None joint complaint Location on the right knee 01/29/2011 None joint complaint Quality aching 01/29/2011 None joint complaint Onset and Resolution sudden in onset 01/29/2011 States she fell backwards and twisted her right knee and ankle. States her foot is also painful. States she is wearing ankles braces that help but if she takes off the brace, her ankles rolls inward. joint complaint Onset of Symptom 1 weeks ago. 01/29/2011 None joint complaint Limitation on Activities does not limit activities 01/29/2011 None joint complaint Alleviating Factors rest 01/29/2011 None joint complaint Exacerbating Factors activity 01/29/2011 None gastroesophageal reflux Quality chronic 01/29/2011 None Advance Directives No Advance Directive data Encounters Encounter Performer Location Codes Date () 15141 EST. PATIENT, LEVEL IV Diagnosis: Cervicalgia[ICD10: M54.2] Diagnosis: Laceration without foreign body of scalp, initial encounter[ICD10: S01.01XA] Diagnosis: Vitamin B12 deficiency anemia due to intrinsic factor deficiency[ ICD10: D51.0] [facility] CPT-4: 32251 04/27/2017 40874 EST. PATIENT, LEVEL II Diagnosis: Residual hemorrhoidal skin tags[ICD10: K64.4] [facility] CPT-4: 22287 04/06/2017 ([id number]) 37276 EST. PATIENT, LEVEL III Diagnosis: Pain in right foot[ICD10: M79.671] Diagnosis: Pain in left foot[ICD10: M79.672] Diagnosis: Cervicalgia[ICD10: M54.2] [facility]ina Thompson MD, [facility] CPT-4: 89310 02/25/2017 [id number]) 63589 EST. PATIENT, LEVEL IV Diagnosis: Essential (primary) hypertension[ICD10: I10] Diagnosis: Chronic pain syndrome[ICD10: G89.4] Diagnosis: Spinal stenosis, cervical region[ICD10: M48.02] Diagnosis: Pain in right leg[ICD10: M79.604] Valentina Thompson MD, [facility] CPT-4: 48483 01/19/2017 ([id number]) 85964 EST. PATIENT, LEVEL III Diagnosis: Pain in right foot[ICD10: M79.671] Diagnosis: Pain in left foot[ICD10: M79.672] Diagnosis: Chronic pain syndrome[ICD10: G89.4] Diagnosis: Vitamin B12 deficiency anemia, unspecified[ICD10: D51.9] Valentina Thompson MD , [facility] CPT-4: 22554 11/17/2016 [id number]) 23270 EST. PATIENT, LEVEL IV Diagnosis: Essential (primary) hypertension[ICD10: I10] Diagnosis: Chronic pain syndrome[ICD10: G89.4] Diagnosis: Foot drop, right foot[ICD10: M21.371] Diagnosis: Foot drop, left foot[ICD10: M21.372] Diagnosis: Other abnormalities of gait and mobility[ICD10: R26.89] Diagnosis: Vitamin B12 deficiency anemia due to intrinsic factor deficiency[ ICD10: D51.0] Aicha Thompson MD, [facility] CPT-4: 32536 10/12/2016 [id number]) [id number] EST. PATIENT, LEVEL III Diagnosis: Pain in right ankle and joints of right foot[ICD10: M25.571] Diagnosis: Superficial foreign body, right foot, initial encounter[ICD10: S90.851A] Valentina Thompson MD, [facility] CPT-4: 00740 ([id number]) 03938 EST. PATIENT, LEVEL III Diagnosis: Candidiasis of vulva and vagina[ICD10: B37.3] Diagnosis: Vitamin B12 deficiency anemia, unspecified[ICD10: D51.9] Valentina Thompson MD , [facility] CPT-4: 14951 08/07/2016 ([id number]) [id number] EST. PATIENT, LEVEL III Diagnosis: Spinal stenosis, cervical region[ICD10: M48.02] Diagnosis: Pain in right ankle and joints of right foot[ICD10: M25.571] Diagnosis: Pain in left ankle and joints of left foot[ICD10: M25.572] Valentina Thompson MD, [facility] CPT-4: 23038 07/31/2016 90901 EST. PATIENT, LEVEL III Diagnosis: Cervicalgia[ICD10: M54.2] Diagnosis: Chronic pain syndrome[ICD10: G89.4] Beatriz Thompson MD, [facility] CPT-4: 35491 07/15/2016 ([id number]) 92416 EST. PATIENT, LEVEL III Diagnosis: Spinal stenosis, cervical region[ICD10: M48.02] Diagnosis: Low back pain[ICD10: M54.5] Valentina Thompson MD, [facility] CPT-4: 22141 07/07/2016 ([id number]) 86655 EST. PATIENT, LEVEL IV Diagnosis: Cervicalgia[ICD10: M54.2] Diagnosis: Essential (primary) hypertension[ICD10: I10] Diagnosis: Mixed hyperlipidemia[ICD10: E78.2] Aicha Thompson MD, [facility] CPT-4: 97093 06/25/2016 ([id number]) 67749 EST. PATIENT, LEVEL III Diagnosis: Cervicalgia[ICD10: M54.2] Valentina Thompson MD, [facility] CPT-4: 13925 05/07/2016 ([id number]) 12836 EST. PATIENT, LEVEL III Diagnosis: Pleurodynia[ICD10: R07.81] Diagnosis: Generalized anxiety disorder[ICD10: F41.1] Diagnosis: Vitamin B12 deficiency anemia due to intrinsic factor deficiency[ ICD10: D51.0] Diagnosis: Hypoxemia[ICD10: R09.02] Valentina Thompson MD, [facility] CPT-4: 38134 04/20/2016 ([id number]) 97292 EST. PATIENT, LEVEL III Diagnosis: Generalized anxiety disorder[ICD10: F41.1] Diagnosis: Radiculopathy, lumbar region[ICD10: M54.16] Valentina Thompson MD, [facility] CPT-4: 99477 03/17/2016 [id number] EST. PATIENT, LEVEL IV Diagnosis: Chronic pain syndrome[ICD10: G89.4] Diagnosis: Radiculopathy, lumbar region[ICD10: M54.16] Diagnosis: Generalized anxiety disorder[ICD10: F41.1] Beatriz Thompson MD, [facility] CPT-4: 03373 03/05/2016 ([id number]) 36073 EST. PATIENT, LEVEL III Diagnosis: Radiculopathy, lumbar region[ICD10: M54.16] Diagnosis: Generalized anxiety disorder[ICD10: F41.1] Valentina Thompson MD, [facility] CPT-4: 82440 02/28/2016 ([id number]) 52371 EST. PATIENT, LEVEL IV Diagnosis: Essential (primary) hypertension[ICD10: I10] Diagnosis: Generalized anxiety disorder[ICD10: F41.1] Diagnosis: Mixed hyperlipidemia[ICD10: E78.2] Diagnosis: Vitamin D deficiency, unspecified[ICD10: E55.9] Diagnosis: 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 malabsorption with proteinuria[ICD10: D51.1] Valentina Thompson MD, [facility] CPT-4: 76815 02/13/2016 ([id number]) 62720 EST. PATIENT, LEVEL III Diagnosis: Headache[ICD10: R51] Diagnosis: Cervicalgia[ICD10: M54.2] Valentina Thompson MD, [facility] CPT-4: 99892 08/15/2015 ([id number]) 44406 EST. PATIENT, LEVEL III Diagnosis: Generalized anxiety disorder[ICD10: F41.1] Diagnosis: Cervicalgia[ICD10: M54.2] Valentina Thompson MD, [facility] CPT-4: 09057 07/25/2015 ([id number]) 11696 EST. PATIENT, LEVEL IV Diagnosis: Pain in right foot[ICD10: M79.671] Diagnosis: Unspecified osteoarthritis, unspecified site[ICD10: M19.90] Diagnosis: Pain in left ankle and joints of left foot[ICD10: M25.572] Diagnosis: Pain in right ankle and joints of right foot[ICD10: M25.571] Valentina Thompson MD, [facility] CPT-4: 13878 06/25/2015 ([id number]) 92153 EST. PATIENT, LEVEL IV Diagnosis: Essential (primary) hypertension[ICD10: I10] Diagnosis: Pain in left ankle and joints of left foot[ICD10: M25.572] Diagnosis: Chronic pain syndrome[ICD10: G89.4] Diagnosis: 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 malabsorption with proteinuria[ICD10: D51.1] Valentina Thompson MD, [facility] CPT-4: 15457 06/10/2015 ([id number]) Miscellaneous no charge Diagnosis: Dysuria[ICD10: R30.0] Aicha Thompson MD, [facility] CPT-4: 52194 05/16/2015 ([id number]) 85723 EST. PATIENT, LEVEL IV Diagnosis: Essential (primary) hypertension[ICD10: I10] Diagnosis: Pain in right foot[ICD10: M79.671] Diagnosis: Pain in left foot[ICD10: M79.672] Diagnosis: Anxiety disorder, unspecified[ICD10: F41.9] Aicha Thompson MD, [facility] CPT-4: 22804 05/08/2015 ([id number]) 14034 EST. PATIENT, LEVEL III Diagnosis: Generalized anxiety disorder[ICD10: F41.1] Diagnosis: Essential (primary) hypertension[ICD10: I10] Diagnosis: Other myositis, multiple sites[ICD10: M60.89] Valentina Thompson MD, [facility] CPT-4: 01138 03/26/2015 28049 EST. PATIENT, LEVEL III Diagnosis: Chronic pain syndrome[ICD10: G89.4] Diagnosis: Unspecified osteoarthritis, unspecified site[ICD10: M19.90] Diagnosis: Pain in right foot[ICD10: M79.671] Diagnosis: Pain in left foot[ICD10: M79.672] Beatriz Thompson MD, [facility] CPT -4: 98064 03/15/2015 ([id number]) 20701 EST. PATIENT, LEVEL III Diagnosis: Abrasion of knee, left[ICD9: 916.0] Valentina Thompson MD, [facility] CPT-4: 74205 01/10/2015 ([id number]) 02978 EST. PATIENT, LEVEL IV Diagnosis: CHRONIC PAIN SYNDROME[ICD9: 338.4] Diagnosis: MYALGIA AND MYOSITIS[ICD9: 729.1] Diagnosis: OSTEOARTH NOS-UNSPEC[ICD9: 715.90] Diagnosis: DEPRESSIVE DISORDER NEC[ICD9: 311] Diagnosis: GENERALIZED ANXIETY DISEASE[ICD9: 300.02] Valentina Thompson MD, [facility] CPT-4: 74339 12/21/2014 ([id number]) 59028 EST. PATIENT, LEVEL IV Diagnosis: GENERALIZED ANXIETY DISEASE[ICD9: 300.02] Diagnosis: DEPRESSIVE DISORDER NEC[ICD9: 311] Diagnosis: ESSENTIAL HYPERTENSION[ICD9: 401.9] Valentina Thompson MD, [facility] CPT-4: 21923 10/05/2014 ([id number]) 02846 EST. PATIENT, LEVEL III Diagnosis: Knee pain, right[ICD9: 719.46] Diagnosis: CHRONIC PAIN SYNDROME[ICD9: 338.4] Diagnosis: Ankle pain[ICD9: 719.47] Aicha Thompson MD, [facility] CPT-4: 81483 06/14/2014 ([id number]) 76221 EST. PATIENT, LEVEL III Diagnosis: Constipation[ICD9: 564.00] Diagnosis: Hemorrhoids[ICD9: 455.6] Valentina Thompson MD, [facility] CPT-4: 62249 01/19/2014 ([id number]) 77013 EST. PATIENT, LEVEL III Diagnosis: Ulcer of knee[ICD9: 707.19] Diagnosis: Hemorrhoids[ICD9: 455.6] Diagnosis: B12 deficiency[ICD9: 266.2] Diagnosis: ALLERGIC RHINITIS[ICD9: 477.9] Valentina Thompson MD, [facility] CPT-4: 07811 01/15/2014 ([id number]) 36519 EST. PATIENT, LEVEL IV Diagnosis: EDEMA[ICD9: 782.3] Diagnosis: Open wound of knee[ICD9: 891.0] Diagnosis: CHRONIC PAIN SYNDROME[ICD9: 338.4] Diagnosis: ANEMIA[ICD9: 285.9] Valentina Thompson MD, [facility] CPT-4: 56859 10/20/2013 ([id number]) 18914 EST. PATIENT, LEVEL III Diagnosis: ULCER OTH PART LOW LIMB[ICD9: 707.19] Valentina Thompson MD [facility] CPT-4: 16566 07/24/2013 ([id number]) 06890 EST. PATIENT, LEVEL III Diagnosis: ULCER OTH PART LOW LIMB[ICD9: 707.19] Valentina Thompson MD [facility] CPT-4: 48773 06/23/2013 ([id number]) 04773 EST. PATIENT, LEVEL III Diagnosis: ULCER OTH PART LOW LIMB[ICD9: 707.19] Valentina Thompson MD, [facility] CPT-4: 19652 06/12/2013 ([id number]) Miscellaneous no charge Diagnosis: ULCER OTH PART LOW LIMB[ICD9: 707.19] Valentina Thompson MD, [facility] CPT-4: 45322 05/29/2013 ([id number]) 42507 EST. PATIENT, LEVEL III Diagnosis: ULCER OTH PART LOW LIMB[ICD9: 707.19] Valentina Thompson MD [facility] CPT-4: 16603 05/23/2013 ([id number]) Miscellaneous no charge Diagnosis: ULCER OTH PART LOW LIMB[ICD9: 707.19] Valentina Thompson MD, [facility] CPT-4: 47381 05/19/2013 ([id number]) 24847 EST. PATIENT, LEVEL III Diagnosis: Ulcer of knee[ICD9: 707.19] Valentina Thompson MD, [facility] CPT-4: 91966 05/16/2013 ([id number]) 96386 EST. PATIENT, LEVEL III Diagnosis: ALLERGIC RHINITIS[ICD9: 477.9] Aicha Thompson MD, [facility] CPT- 4: 34297 03/06/2013 ([id number]) 09383 EST. PATIENT, LEVEL IV Diagnosis: Ankle pain[ICD9: 719.47] Diagnosis: ALLERGIC RHINITIS[ICD9: 477.9] Diagnosis: ESSENTIAL HYPERTENSION[SNOMED: 04420236] Aicha Thompson MD, [facility] CPT-4: 01096 12/26/2012 ([id number]) 74547 EST. PATIENT, LEVEL IV Diagnosis: ESSENTIAL HYPERTENSION[SNOMED: 24914689] Diagnosis: JOINT PAIN-L/LEG[ICD9: 719.46] Diagnosis: GENERALIZED ANXIETY DISEASE[ICD9: 300.02] Diagnosis: UNSPECIFIED ASTHMA[ICD9: 493.90] Aicha Thompson MD, [facility] CPT-4: 57774 11/21/2012 ([id number]) Miscellaneous no charge Diagnosis: Encounter for tuberculin skin test[ICD9: V74.1] Aicha Thompson MD [facility] CPT-4: 69051 09/28/2012 ([id number]) 93054 EST. PATIENT, LEVEL IV Diagnosis: FEVER NOS[ICD9: 780.60] Diagnosis: PNEUMONIA (CAP)[ICD9: 486] Aicha Thompson MD, [facility] CPT- 4: 88421 07/21/2012 ([id number]) 23669 EST. PATIENT, LEVEL IV Diagnosis: JOINT PAIN-ANKLE[ICD9: 719.47] Diagnosis: MUSCLE/LIGAMENT DIS NEC[ICD9: 728.89] Diagnosis: Fibromyalgia muscle pain[ICD9: 729.1] Aicha Thompson MD, [facility] CPT-4: 05896 07/13/2012 ([id number]) 29662 EST. PATIENT, LEVEL IV Diagnosis: Right foot pain[ICD9: 729.5] Diagnosis: Plantar fasciitis[ICD9: 728.71] Diagnosis: GENERALIZED ANXIETY DISEASE[ICD9: 300.02] Diagnosis: B-COMPLEX DEFIC NEC[ICD9: 266.2] [facility] CPT-4: 09903 05/26/2012 ([id number]) 25366 EST. PATIENT, LEVEL IV Diagnosis: Chest wall pain[ICD9: 786.52] Diagnosis: Esophageal reflux[ICD9: 530.81] Diagnosis: ALLERGIC RHINITIS[ICD9: 477.9] Valentina Thompson MD, [facility] CPT-4: 36961 02/15/2012 ([id number]) 14357 EST. PATIENT, LEVEL IV Diagnosis: ALLERGIC RHINITIS[ICD9: 477.9] Diagnosis: HYPERLIPIDEMIA[ICD9: 272.4] Aicha Thompson MD [facility] CPT- 4: 94413 01/13/2012 ([id number]) 62308 EST. PATIENT, LEVEL IV Diagnosis: JOINT PAIN-L/LEG[ICD9: 719.46] Diagnosis: UNSPECIFIED ASTHMA[ICD9: 493.90] Diagnosis: Costalchondritis[ICD9: 733.6] Aicha Thompson MD [facility] CPT- 4: 94712 12/21/2011 ([id number]) 78873 EST. PATIENT, LEVEL IV Diagnosis: Hyperlipidemia[ICD9: 272.4] Diagnosis: ALLERGIC RHINITIS[ICD9: 477.9] Diagnosis: B12 deficiency[ICD9: 266.2] Diagnosis: Hypopotassemia[ICD9: 276.8] Valentina Thompson MD [facility] CPT-4: 08659 10/02/2011 ([id number]) 72269 EST. PATIENT, LEVEL IV Diagnosis: Pain in joint involving forearm[ICD9: 719.43] Diagnosis: Neck pain[ICD9: 723.1] Diagnosis: Fall on same level from slipping, tripping, or stumbling[ICD9: E885.9 ] Diagnosis: B12 deficiency[ICD9: 266.2] Aicha Thompson MD [facility] CPT- 4: 22746 09/01/2011 ([id number]) 28656 EST. PATIENT, LEVEL IV Diagnosis: Vulvovaginitis[ICD9: 616.10] Diagnosis: OVERWEIGHT[ICD9: 278.02] Diagnosis: MYALGIA AND MYOSITIS[ICD9: 729.1] Aicha Thompson MD, [facility] CPT-4: 72550 08/03/2011 ([id number]) 69852 EST. PATIENT, LEVEL IV Diagnosis: MUSCLE/LIGAMENT DIS NEC[ICD9: 728.89] Diagnosis: CHRONIC PAIN SYNDROME[ICD9: 338.4] Diagnosis: Weight gain[ICD9: 783.1] Aicha Thompson MD, [facility] CPT-4: 81660 06/29/2011 73038 EST. PATIENT, LEVEL IV Diagnosis: Wrist pain[ICD9: 719.43] Diagnosis: Knee pain, right[ICD9: 719.46] Diagnosis: Fall on same level from slipping, tripping, or stumbling[ICD9: E885.9 ] Aicha Thompson MD, [facility] CPT-4: 29151 06/22/2011 39389 EST. PATIENT, LEVEL IV Diagnosis: MUSCLE/LIGAMENT DIS NEC[ICD9: 728.89] Diagnosis: JOINT PAIN-L/LEG[ICD9: 719.46] Diagnosis: OSTEOARTH NOS-UNSPEC[ICD9: 715.90] Diagnosis: B12 deficiency[ICD9: 266.2] Aicha Thompson MD, [facility] CPT- 4: 15388 06/11/2011 18603 EST. 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 PATIENT, LEVEL IV Diagnosis: Knee pain, bilateral[ICD9: 719.46] Diagnosis: Iliotibial band syndrome[ICD9: 728.89] Diagnosis: Fibromyalgia syndrome[ICD9: 729.1] Aicha Thompson MD, [facility] CPT-4: 27482 02/12/2011 83997 EST. PATIENT, LEVEL IV Diagnosis: FALL FROM SLIPPING[ICD9: E885.9] Diagnosis: Pain in joint involving lower leg[ICD9: 719.46] Diagnosis: ESOPHAGEAL REFLUX[ICD9: 530.81] Diagnosis: ESSENTIAL HYPERTENSION[SNOMED: 32204148] Aicha Thompson MD, [facility] CPT-4: 74319 01/29/2011 Plan of Care Planned Activity Notes Codes Status Date Appointment: Valentina Smith WPtel: [address] [place], [place] [phone] (30 min) Complex 05/17/2017 Appointment: Beatriz Mojica WPtel: [address] [place], [place] [phone] (30 min) Complex 05/14/2017 Visit Plan: Neck suuh-npkelze-fuckqlu to continue f/u with [facility]-her symptoms have resolved since her recent fall -full ROM, denies pain and/ or numbness-instructed to call if symptoms return Laceration scalp-healing well- no further treatment indicated-keep clean dry Minor head injury-possible mild concussion-patient has return to baseline-alert and talkative today in the office -instructed patient to call for worsening headaches, nausea/vomiting, confusion, etc. Patient and her mother verbalized understanding of plan. 04/27/2017 Appointment: Valentina Smith WPtel: [phone] (30 min) Complex 04/27/2017 Patient Education: Patient Medication Summary Completed 04/27/2017 Patient Education: Obesity Completed 04/27/2017 Visit Plan: Hemorrhoidal skin tag-no acute inflammation today -may use hemorrhoid cream as directed as needed-call with any concerns, bleeding, etc. 04/06/2017 Appointment: Valentina Smith WPtel: [phone] (30 min) Complex 04/06/2017 Patient Education: Patient Medication Summary Completed 04/06/2017 Patient Education: Obesity Completed 04/06/2017 Visit Plan: Bilateral foot and ankle pain-now has AFOs-we have made her several appt with podiatrists which she has not kept-recommend patient call Dr Saunders and reschedule appt with him. Neck pain-[facility] appt next week-KEEP APPOINTMENT! 02/25/2017 Appointment: Valentina Smith WPtel: [address] [place], [place] [phone] (30 min) Complex 02/25/2017 Patient Education: Patient Medication Summary Completed 02/25/2017 Patient Education: Obesity Completed 02/25/2017 Patient Education: .Cervicalgia Neck Pain Completed 02/25/2017 Visit Plan: Hypertension - well controlled - continue with current medications, continue with no added salt diet. Pt has been encouraged to exercise daily. The pt has been advised to call the office if there are any acute concerns about change in blood pressure readings at home. Cervical stenosis-refer to Lumbar radiculopathy-right leg pain/numbness-refer for EMG testing-will see if Dr Pope does testing 01/19/2017 Patient Education: Patient Medication Summary Completed 01/19/2017 Visit Plan: Bilateral foot pain-foot drop-patient getting AFOs-refer to podiatry for evaluation-wants to see someone in [place] 11/17/2016 Appointment: Valentina Smith WPtel: [phone] [phone] (30 min) Complex 11/17/2016 Patient Education: Patient Medication Summary Completed 11/17/2016 Appointment: Valentina Smith WPtel: [phone] [phone] (30 min) Complex 11/16/2016 Visit Plan: [place] referral - pt to indicate when and who she would like to go to - for neck and back AFO for both legs - [facility] in [place], [place]- fax #[phone] pt has been seen by destination specialist - need brace because of bilateral drop foot - specially made for pt to help prevent falling episodes due to her drop foot bilaterally. Pt has store bought orthotics but the patient has not had enough benefit from the store bought braces and needs custom made orthotics. Pt has sleep apnea - has been on CPAP - needs to have repeat sleep study again. Hypertension - well controlled - continue with current medications, continue with no added salt diet. Pt has been encouraged to exercise daily. The pt has been advised to call the office if there are any acute concerns about change in blood pressure readings at home. Chronic Pain Syndrome - pt has chronic pain - has been maintained on current medications, has not sought out other medications, only uses PRN pain medications as directed, and understands the consequences of over- medication. 10/12/2016 Appointment: Aicha Thompson WPtel: [phone] [phone] [place] (30 min) Complex 10/12/2016 Patient Education: Patient Medication Summary Completed 10/12/2016 Patient Education: Obesity Completed 10/12/2016 Appointment: Injection 09/11/2016 Patient Education: Patient Medication Summary Completed 09/11/2016 Visit Plan: Right ankle pain/instability-xray negative- will obtain MRI ankle Ulcer right foot-instructed patient on wound care and the importance of keeping wound clean-f/u in 10-14 days for re-evaluation 08/18/2016 Appointment: Valentina Smith WPtel: [phone] [place] (30 min) Complex 08/18/2016 Patient Education: Patient Medication Summary Completed 08/18/2016 Patient Education: Obesity Completed 08/18/2016 Care Plan: X-RAY EXAM NECK SPINE 2-3 VW LOINC : 05438-3 Pending 08/15/2016 Visit Plan: Vaginal yeast infection-RX for diflucan B12 deficiency-check labs 08/07/2016 Appointment: Valentina Smith WPtel: [phone] [place] (30 min) Complex 08/07/2016 Patient Education: Patient Medication Summary Completed 08/07/2016 Visit Plan: Cervical stenosis-saw Dr Ramey-Dr Ramey is going to send her to for further evaluation Bilateral ankle pain-xray ankles 07/31/2016 Appointment: Valentina Smith WPtel: [phone] [place] (30 min) Complex 07/31/2016 Patient Education: Patient Medication Summary Completed 07/31/2016 Patient Education: Obesity Completed 07/31/2016 Visit Plan: Neck pain after fall - Will check x-ray, Pt is to follow up with Dr. Perez. Pt is to notify clinic if symptoms do not improve , if they worsen, or with any questions or concerns. 07/15/2016 Appointment: Beatriz Mojica WPtel: [phone] [place] (30 min) Complex 07/15/2016 Patient Education: Patient Medication Summary Completed 07/15/2016 Patient Education: .Cervicalgia Neck Pain Completed 07/15/2016 Visit Plan: Low back pain-discussed need to evaluate cervical issues first-may benefit from PT-continue anti inflammatories as directed Cervical stenosis-called Dr Ramey's office-referral pending-they will call the patient with the appt 07/07/2016 Patient Education: Patient Medication Summary Completed 07/07/2016 Patient Education: Obesity Completed 07/07/2016 Appointment: Injection 07/03/2016 [facility]ment: [phone] (30 min) Complex 07/03/2016 Patient Education: Patient Medication Summary Completed 07/03/2016 Visit Plan: Hypertension - well controlled - continue with current medications, continue with no added salt diet. Pt has been encouraged to exercise daily. The pt has been advised to call the office if there are any acute concerns about change in blood pressure readings at home. Hyperlipidemia - pt has been counseled about appropriate diet, exercise, and need for low fat food choices. I have discussed the need for the patient to take medications as prescribed. If the patient has negative side effects from the medication, they are to CALL the office and not abruptly discontinue the medication without discussion with a practitioner in the office. We will check labs in 3-6 months for follow up on the patient's chronic medical problem and to assure normal liver response to medications. Cervical stenosis-saw Dr Ramey-Dr Ramey is going to send her to for further evaluation 06/25/2016 Patient Education: Patient Medication Summary Completed 06/25/2016 Patient Education: .Cervicalgia Neck Pain Completed 06/25/2016 Visit Plan: Cervicalgia-MRI neck without contrast for further evaluation for further evaluation of persistent neck pain despite PT. 05/07/2016 Appointment: [phone] [phone] (30 min) Complex 05/07/2016 Patient Education: Patient Medication Summary Completed 05/07/2016 Patient Education: Obesity Completed 05/07/2016 Care Plan: MRI NECK SPINE W/O DYE LOINC : 82045-4 Pending 05/07/2016 Visit Plan: Chronic Depression and anxiety - the pt has symptoms of chronic anxiety and depression that have been fairly well controlled since the last office visit. The pt has expected periods of exacerbation with abatement of the symptoms with change in situational exposure. No change in current medications. Recommend she discuss incidence with EMT at her next counseling session Chest wall pain-xray ribs negative- continue to monitor symptoms 04/20/2016 Visit Plan: Chronic Depression and anxiety - the pt has symptoms of chronic anxiety and depression that have been fairly well controlled since the last office visit. The pt has expected periods of exacerbation with abatement of the symptoms with change in situational exposure. No change in current medications. Recommend she discuss incidence with EMT at her next counseling session Chest wall pain-xray ribs negative- continue to monitor symptoms Hypoxemia-patient wears oxygen at 2l at night and continues to benefit from therapy 04/20/2016 Visit Plan: Chronic Depression and anxiety - the pt has symptoms of chronic anxiety and depression that have been fairly well controlled since the last office visit. The pt has expected periods of exacerbation with abatement of the symptoms with change in situational exposure. No change in current medications. Recommend she discuss incidence with EMT at her next counseling session Chest wall pain-xray ribs negative- continue to monitor symptoms 04/20/2016 Appointment: Valentina Smith WPtel: [phone] (30 min) Complex 04/20/2016 Patient Education: Patient Medication Summary Completed 04/20/2016 Appointment: Valentina Smith WPtel: [phone] (30 min) Complex 03/19/2016 Visit Plan: Chronic Depression and anxiety - the pt has symptoms of chronic anxiety and depression that have been fairly well controlled since the last office visit. The pt has expected periods of exacerbation with abatement of the symptoms with change in situational exposure. No change in current medications. Lumbar radiculopathy-patient referred for PT-recommend appt with Dr Ibarra 03/17/2016 Appointment: Valent[facility]el[phone] [phone] (30 min) Complex 03/17/2016 Patient Education: Patient Medication Summary Completed 03/17/2016 Patient Education: Obesity Completed 03/17/2016 Visit Plan: Lumbar radiculopathy - will order MRI of the Lumbar spine per recommendations from the EMG report - will refer to ortho if indicated. Chronic Pain Syndrome - pt has chronic pain - has been maintained on current medications, has not sought out other medications, only uses PRN pain medications as directed, and understands the consequences of over-medication. 03/05/2016 Patient Education: Patient Medication Summary Completed 03/05/2016 Patient Education: Patient Medication Summary Completed 03/02/2016 Visit Plan: Lumbar radiculopathy-get records from Dr Gray -refer to back specialist/pain management Chronic Depression and anxiety - the pt has symptoms of chronic anxiety and depression that have been fairly well controlled since the last office visit. The pt has expected periods of exacerbation with abatement of the symptoms with change in situational exposure. No change in current medications. 02/28/2016 Visit Plan: Lumbar radiculopathy-get records from Dr Gray -refer to back specialist/pain management Chronic Depression and anxiety - the pt has symptoms of chronic anxiety and depression that have been fairly well controlled since the last office visit. The pt has expected periods of exacerbation with abatement of the symptoms with change in situational exposure. No change in current medications. 02/28/2016 Appointment: Valentina Smith WPtel: [address] [place], [place] [phone] [place] [address] (15 min) Moderate 02/28/2016 Patient Education: Patient Medication Summary Completed 02/28/2016 Appointment: Valentina Smith WPtel: [address] [place], [place] [id number] [place] [address] (30 min) Complex 02/27/2016 Visit Plan: Hypertension - well controlled - continue with current medications, continue with no added salt diet. Pt has been encouraged to exercise daily. The pt has been advised to call the office if there are any acute concerns about change in blood pressure readings at home. Chronic Depression and anxiety - the pt has symptoms of chronic anxiety and depression that have been fairly well controlled since the last office visit. The pt has expected periods of exacerbation with abatement of the symptoms with change in situational exposure. No change in current medications. Hyperlipidemia-check labs Vitamin d deficiency-check vitamin d level 02/13/2016 Appointment: Valentina Smith WPtel: [phone] (30 min) Complex 02/13/2016 Patient Education: Patient Medication Summary Completed 02/13/2016 Patient Education: Obesity Completed 02/13/2016 Care Plan: Cbc With Differential Pending 02/13/2016 Care Plan: Tsh Pending 02/13/2016 Care Plan: Lipid Pending 02/13/2016 Care Plan: Comp Metabolic patient to come fasting Pending 02/13/2016 Care Plan: Vitamin D 25 Oh Cancelled 02/13/2016 Patient Education: Patient Medication Summary Completed 02/03/2016 Care Plan: SCREENINGMAMMOGRAPHYDIGITAL LOINC : 07848-8 Pending 02/03/2016 Appointment: Injection 01/15/2016 Appointment: Lab Draw 12/10/2015 Patient Education: Patient Medication Summary Completed 12/10/2015 Appointment: Injection 12/02/2015 Patient Education: Patient Medication Summary Completed 12/02/2015 Appointment: Injection 10/29/2015 Patient Education: Patient Medication Summary Completed 10/29/2015 Appointment: Nurse Visit 09/03/2015 Visit Plan: Neck pain-plan to xray cervical spine-refer to ortho as appropriate-patient verbalized understanding of plan. 08/15/2015 Appointment: (30 min) Complex 08/15/2015 Patient Education: Patient Medication Summary Completed 08/15/2015 Patient Education: Obesity Completed 08/15/2015 Patient Education: .Cervicalgia Neck Pain Completed 08/15/2015 Care Plan: X-RAY EXAM NECK SPINE 2-3 VW LOINC : 50518-9 Ordered 08/15/2015 Visit Plan: Anxiety-fairly well controlled-does have added stress with family-no change in medications-call if symptoms worsen Neck pain- recommend rest, ice and anti inflammatories as directed-call if symptoms do not resolve or if any worse. Patient verbalized understanding of plan. 07/25/2015 Appointment: (30 min) Complex 07/25/2015 Patient Education: Patient Medication Summary Completed 07/25/2015 Patient Education: .Cervicalgia Neck Pain Completed 07/25/2015 Visit Plan: Right foot pain-fell on 05/23/15 and still having pain-plan to xray right foot-patient to follow up with Dr Pham as scheduled for chronic feet and ankle instability/pain. Refer patient to Teddy for aqua therapy. Patient verbalized understanding of plan. 06/25/2015 Patient Education: Patient Medication Summary Completed 06/25/2015 Visit Plan: Hypertension - well controlled - continue with current medications, continue with no added salt diet. Pt has been encouraged to exercise daily. The pt has been advised to call the office if there are any acute concerns about change in blood pressure readings at home. Left ankle sprain-continue rest, ice and topical anti inflammatories as directed-call if symptoms do not resolve or if any worse. Chronic Pain Syndrome - pt has chronic pain - has been maintained on current medications, has not sought out other medications, only uses PRN pain medications as directed, and understands the consequences of over-medication. Refill hydrocodone today Okay to take over refilling tramadol-takes #180/month-last refilled 05/29 so it's not due to be filled today B12 injection today in the office 06/10/2015 Patient Education: Patient Medication Summary Completed 06/10/2015 Patient Education: Hypertension Completed 06/10/2015 Appointment: Lab Draw 05/16/2015 Patient Education: Patient Medication Summary Completed 05/16/2015 Care Plan: Urinalysis no culture Cancelled 05/16/2015 Visit Plan: Hypertension - well controlled - continue with current medications, continue with no added salt diet. Pt has been encouraged to exercise daily. The pt has been advised to call the office if there are any acute concerns about change in blood pressure readings at home. Chronic depression and anxiety - pt to have dose of valium increased and continue with savella and effexor Fibromyalgia - I have advised against use of serrapatase and use of msm due to possible side effects. 05/08/2015 Appointment: Aicha Thompson WPtel: [facility] ([facility] min) [facility] 05/08/2015 Patient Education: Patient Medication Summary Completed 05/08/2015 Patient Education: Hypertension Completed 05/08/2015 Appointment: Nurse Visit 05/06/2015 Visit Plan: Chronic Depression and anxiety - the pt has symptoms of chronic anxiety and depression that have been fairly well controlled since the last office visit. The pt has expected periods of exacerbation with abatement of the symptoms with change in situational exposure. No change in current medications. Hypertension - well controlled - continue with current medications, continue with no added salt diet. Pt has been encouraged to exercise daily. The pt has been advised to call the office if there are any acute concerns about change in blood pressure readings at home. 03/26/2015 Appointment: (30 min) Complex 03/26/2015 Patient Education: Patient Medication Summary Completed 03/26/2015 Patient Education: Hypertension Completed 03/26/2015 Visit Plan: Foot pain and SI joint pain - [place] - use over affected area twice daily, follow up after appointment with Dr. Guzman Chronic Pain Syndrome - pt has chronic pain - has been maintained on current medications, has not sought out other medications, only uses PRN pain medications as directed, and understands the consequences of over-medication. 03/15/2015 Patient Education: Patient Medication Summary Completed 03/15/2015 Visit Plan: Abrasion of left knee-RX for bactroban twice daily-keep clean and dry and call if does not resolve. Right knee and ankle weakness/pain-recommend physical therapy for strengthening 01/10/2015 Appointment: (15 min) Moderate 01/10/2015 Patient Education: Patient Medication Summary Completed 01/10/2015 Visit Plan: Chronic Pain Syndrome - pt has chronic pain - has been maintained on current medications, has not sought out other medications , only uses PRN pain medications as directed, and understands the consequences of over-medication. Chronic Depression and anxiety - the pt has symptoms of chronic anxiety and depression that have been fairly well controlled since the last office visit. The pt has expected periods of exacerbation with abatement of the symptoms with change in situational exposure. No change in current medications. 12/21/2014 Appointment: (15 min) Moderate 12/21/2014 Patient Education: Patient Medication Summary Completed 12/21/2014 Visit Plan: Chronic Depression and anxiety - the pt has symptoms of chronic anxiety and depression that have been fairly well controlled since the last office visit. The pt has expected periods of exacerbation with abatement of the symptoms with change in situational exposure. No change in current medications. Hypertension - well controlled - continue with current medications, continue with no added salt diet. Pt has been encouraged to exercise daily. The pt has been advised to call the office if there are any acute concerns about change in blood pressure readings at home. Hyperlipidemia - check labs 10/05/2014 Appointment: Sick 10/05/2014 Patient Education: Patient Medication Summary Completed 10/05/2014 Patient Education: Hypertension Completed 10/05/2014 Care Plan: COMPLETE CBC AUTOMATED LOINC : 38736-8 Ordered 10/05/2014 Visit Plan: Chronic Pain Syndrome - pt has chronic pain - has been maintained on current medications, has not sought out other medications , only uses PRN pain medications as directed, and understands the consequences of over-medication. Right hip/knee/ankle pain-improving since last fall- continue physical therapy exercises-continue supportive shoes and use walker for stability 06/14/2014 Appointment: Valentina Smith WPtel: [phone] Follow up 06/14/2014 Patient Education: Patient Medication Summary Completed 06/14/2014 Patient Education: Patient Medication Summary Completed 02/15/2014 Visit Plan: Constipation - uncontrolled - I have discussed with the patient the need for adequate fiber and water intake to facilitate soft , easily passed stools. The pt noted understanding of our conversation. I have also recommended that she continue to follow the instructions given to her from her telegraph lineman and she is to call him if her constipation is uncontrolled. Hemorrhoids-use suppositories as directed. 01/19/2014 Patient Education: Patient Medication Summary Completed 01/19/2014 Visit Plan: Ulcer of ulpr-pyftsiu-laaqf instructions provided today and instructed patient to return as directed-keep wound clean and dry. Hemorrhoids-refill anusol suppositories and use as directed B12 deficiency-b12 injection today in the office Wfobwlhbr-xkytjlrtdbjn-hvwrbxr injection today in the office-continue oral medications as directed 01/15/2014 Appointment: Follow up 01/15/2014 Patient Education: Patient Medication Summary Completed 01/15/2014 Appointment: Injection 12/04/2013 Patient Education: Patient Medication Summary Completed 12/04/2013 Visit Plan: Edema - pt has been advised to elevate legs to prevent dependent edema, compression has been recommended to help to naturally decrease peripheral edema. Diuretic use has been discussed and pt has been instructed in appropriate use of such medication as necessary to further attempt to reduce peripheral edema. Chronic wound of knee-discussed wound care- follow up in 1 month Anemia-check labs 10/20/2013 Appointment: Valentina Smith WPtel: [phone] Other 10/20/2013 Patient Education: Patient Medication Summary Completed 10/20/2013 Appointment: Valentina Smith WPtel: [phone] [place] Injection 08/21/2013 Appointment: Aicha Thompson WPtel: [address] [place], [place] [id number] Follow up 07/31/2013 Visit Plan: Ulcer of knee healing-silver nitrate to granulation tissue-instructed patient to monitor and call if it does not completely heal for appointment-instructed on wound care-patient and mother verbalized understanding of plan. 07/24/2013 Patient Education: Patient Medication Summary Completed 07/24/2013 Patient Education: Patient Medication Summary Completed 07/24/2013 Appointment: Valentina Smith WPtel: [address] [place], [place] [id number] Follow up 07/03/2013 Visit Plan: Ulcer-left knee-fibrous tissue removed from wound bed to reveal pink granulation tissue-wound cleansed and dressing applied. Instructed patient on wound care. Return in 10 days for follow up. 06/23/2013 Appointment: Valentina Smith WPtel: [address] [place], [place] [phone] Follow up 06/23/2013 Patient Education: Patient Medication Summary Completed 06/23/2013 Appointment: Aicha Thompson WPtel: [address] [place], [place] [id number] Follow up 06/22/2013 Appointment: Valentina Smith WPtel: [address] [place], [place] [id number] Follow up 06/22/2013 Visit Plan: Ulcer-left knee-fibrous tissue removed from wound bed to reveal pink granulation tissue-wound cleansed and dressing applied. Instructed patient on wound care. Return in 10 days for follow up. 06/12/2013 Appointment: Valentina Smith WPtel: [address] [place], [place] [id number] Follow up 06/12/2013 Patient Education: Patient Medication Summary Completed 06/12/2013 Appointment: Aicha Thompson WPtel: [address] [place], [place] [id number] Follow up 06/08/2013 Visit Plan: Ulcer left unjz-xzbazoma-i/u in 10 days 05/29/2013 Appointment: Valentina Smith WPtel: [address] [place], [place] [phone] [place] [address] Follow up 05/29/2013 Patient Education: Patient Medication Summary Completed 05/29/2013 Visit Plan: Ulcer of knee-sharp debridement today in the office--wound care instructions provided for patient-patient and mother verbalized understanding of plan. Follow up next week. 05/23/2013 Appointment: Valentina Smith WPtel: [address] [place], [place] [phone] [place] [address] Follow up 05/23/2013 Patient Education: Patient Medication Summary Completed 05/23/2013 Appointment: Valentina Smith WPtel: [address] [place], [place] [phone] [place] [address] Follow up 05/22/2013 Visit Plan: Ulcer of knee-wound care instructions provided for patient-patient and mother verbalized understanding of plan. 05/19/2013 Appointment: Valentina Smith WPtel: [address] [place], [place] [id number] Other 05/19/2013 Patient Education: Patient Medication Summary Completed 05/19/2013 Visit Plan: Ulcer of knee-fibrous tissue debrided today in the office--wound care instructions provided for patient-return in 1 week for follow up. 05/16/2013 Appointment: Valentina Smith WPtel: [address] [place], [place] [id number] follow up 05/16/2013 Patient Education: Patient Medication Summary Completed 05/16/2013 Appointment: Aicha Thompson WPtel: [address] [place], [place] [phone] Injection 05/10/2013 Patient Education: Patient Medication Summary Completed 05/10/2013 Visit Plan: Allergies - chronic - recommended pt to use allergy medication as prescribed. Pt has been counseled as the the appropriate use of the medication. Pt to call if allergy symptoms are not controlled with the medication. If using nasal spray, instructions as follows: Nasal spray- use twice daily, one spray per nostril twice daily, after 30 minutes, rinse out nose with saline spray.. Use opposite hand per nostril to spray in the nasal steroid allergy spray. Kenalog injection today in the office. 03/06/2013 Appointment: Valentina Smith WPtel: [address] [phone] Other 03/06/2013 Patient Education: Patient Medication Summary Completed 03/06/2013 Appointment: Aicha Thompson WPtel: [facility]9 [facility] Nurse Visit 02/20/2013 Patient Education: Patient Medication Summary Completed 02/20/2013 Appointment: Aicha Thompson WPtel: [phone] [facility] Follow up 01/16/2013 Visit Plan: Joint pain - again reassured Iker and her mom that there is no acute injury however, due to the inability to adequately evaluate Mary due to her crying out in pain and not allowing a full exam due to her pain, I have agreed to order an xray of her lower leg/ankle. she had previous injury and twisting/sprain and a fracture reported in 2007 nondisplaced and did not require surgery. She has wasting in her hands and feet , and the muscles in her calves and thighs. This wasting and weakness causes increased risk of inury and poor posture and body part placement when ambulating. I have again advised the pt of the need to loose weight, use her braces only when she is going to ambulating for a long period of time, and she needs to attempt to make her home a safer place to ambulate within as she falls frequently at home. Allergies - shot given today Hypertension - uncontrolled - the patient's medications have been modified as documented in the visit note. The patient has been counseled to cut back on salt in diet for a no added salt diet, low fat diet, start an exercise program with low weight bearing exercises and higher aerobic activity for heart health. The patient is to check blood pressure readings as an outpatient and either fax, call, or email the readings to the office next week for practicioner to review. The pt is to call for acute concerns. 12/26/2012 Appointment: Aich[facility] Thompson [facility]Ptel[facility] [facility] [place] Other 12/26/2012 Patient Education: Patient Medication Summary Completed 12/26/2012 Patient Education: Hypertension Completed 12/26/2012 Appointment: Aicha Thompson WPtel: [facility]5 [facility] Lab Draw 12/21/2012 Patient Education: Patient Medication Summary Completed 12/21/2012 Visit Plan: Hypertension - well controlled - continue with current medications, continue with no added salt diet. Pt has been encouraged to exercise daily. The pt has been advised to call the office if there are any acute concerns about change in blood pressure readings at home. Arthritis- occasionally uncontrolled symptoms- Use tylenol for break through pain symptoms. Chronic Depression and anxiety - the pt has symptoms of chronic anxiety and depression that have been fairly well controlled since the last office visit. The pt has expected periods of exacerbation with abatement of the symptoms with change in situational exposure. No change in current medications. Asthma - chronic problem for this patient. We have reviewed chronic treatment strategy, symptom control, and plans for acute exacerbations. No changes today to the current treatment plan as the patient is stable, monitor for acute changes 11/21/2012 Appointment: Aicha Thompson WPtel: [facility] Follow up 11/21/2012 Patient Education: Patient Medication Summary Completed 11/21/2012 Patient Education: Hypertension Completed 11/21/2012 Appointment: Aicha Thompson WPtel: [facility] [place] Injection 11/16/2012 Patient Education: Patient Medication Summary Completed 11/16/2012 Appointment: Aicha Thompson WPtel: [facility] [place] Injection 09/28/2012 Patient Education: Patient Medication Summary Completed 09/28/2012 Appointment: Aicha Thompson [facility]Ptel[facility] [phone] [facility] [place] Injection 09/26/2012 Patient Education: Patient Medication Summary Completed 09/26/2012 Appointment: Aicha Thompson [facility]Ptel[facility] [phone] [facility] [place] Injection 09/12/2012 Patient Education: Patient Medication Summary Completed 09/12/2012 Appointment: Aicha Thompson [facility]Ptel[facility] [phone] [facility] [place] Injection 08/11/2012 Patient Education: Patient Medication Summary Completed 08/11/2012 Visit Plan: Pneumonia - Pt has been diagnosed with pneumonia by physical exam. A chest xray has been ordered as have antibiotics. The pt is aware of the diagnosis and the need for acute treatment of this illness. Plan to check stat labs at the hospital and start patient on abx jessica. Instructed patient and her mom to go to ER if symptoms do not improve, or if any worse. Fever-recommend she discussed her post infusion reactions with Dr. Grace before her next infusion 07/21/2012 Patient Education: Patient Medication Summary Completed 07/21/2012 Visit Plan: Joint pain - again reassured Iker and her mom that there is no acute injury for which to do an xray, she had previous injury and twisting/sprain and a fracture reported in 2006 nondisplaced and did not require surgery. She has such peripheral muscle weakness that she has wasting in the interlumbricals of her hands and feet, and also her muscles in her calves and thighs. This wasting and weakness causes increased risk of inury and poor posture and body part placement when ambulating. I have again advised the pt of the need to loose weight, use her braces only when she is going to ambulating for a long period of time, and she needs to loose weight. Fibromyalgia - pt has been counseled about healthy diet, exercise, and adequate rest in the evening/nighttime for optimal health and improvement of the fibromyalgia symptoms. Pt is to use medication for pain control and symptom management sparingly. 07/13/2012 Appointment: Svetlana Thompsony [facility]Ptel[phone] [facility] [place] Other 07/13/2012 Patient Education: Patient Medication Summary Completed 07/13/2012 Visit Plan: Right foot pain-lantar fasciitis- pt was educated that this is an inflammatory process, need to stretch the foot and reduce inflammation by using a frozen bottle of water or a tennis ball on the bottom of the foot at least three times a day until the pain is improved. Recommend xray right foot if pain does not improve with anti-inflammatories and exercises Anxiety-controlled on current regimen-no changes in medications 05/26/2012 Appointment: Valentina Smith WPtel: [address] [place], [place] [phone] [place] [address] Other 05/26/2012 Patient Education: Patient Medication Summary Completed 05/26/2012 Appointment: Valentina Smith WPtel: [address] [place], [place] [phone] Sick 03/15/2012 Appointment: Aicha Thompson WPtel: [facility] Injection 03/02/2012 Patient Education: Patient Medication Summary Completed 03/02/2012 Visit Plan: Chest wall pain-recent fall-plan to check chest xray-recommend anti inflammatories Esophageal Reflux - the patient has been counseled against excessive intake of caffiene, spicy foods, peppermint, and cinnamon - all of which can exacerbate esophageal reflux. The patient is to take medications as prescribed and call the office if the symptoms are not improving. Allergies - chronic - recommended pt to use allergy medication as prescribed. Pt has been counseled as the the appropriate use of the medication. Pt to call if allergy symptoms are not controlled with the medication. 02/15/2012 Appointment: Valentina Smith WPtel: [facility] [place] [address] Other 02/15/2012 Patient Education: Patient Medication Summary Completed 02/15/2012 Visit Plan: Allergies - Advised avoidance of allergens if possible, we discussed natural and expected course of this diagnosis and need to alert me if symtpoms do not follow expected course, or if any worse. Kenalog injection in the office today. Hyperlipidemia - pt has been counseled about appropriate diet, exercise, and need for low fat food choices. I have discussed the need for the patient to take medications as prescribed. If the patient has negative side effects from the medication, they are to CALL the office and not abruptly discontinue the medication without discussion with a practicioner in the office. We will check labs in 3-6 months for follow up on the patient's chronic medical problem and to assure normal liver response to medications 01/13/2012 Appointment: Valentina Smith WPtel: [phone] [phone] Other 01/13/2012 Patient Education: Patient Medication Summary Completed 01/13/2012 Appointment: Valentina Smith WPtel: [phone] [place] Other 01/06/2012 Visit Plan: Asthma - chest xray and symbicort sample today. Patellofemoral syndrome- recommended physical therapy. Costochondritis - recommended pt to use antiinflammatories as able for treatment of rib/sternum irritation and for pt to call if her symptoms do not improve. 12/21/2011 Appointment: Aicha Thompson WPtel: [facility] Other 12/21/2011 Patient Education: Patient Medication Summary Completed 12/21/2011 Patient Education: Patient Medication Summary Completed 10/30/2011 Visit Plan: Hyperlipidemia - pt has been counseled about appropriate diet, exercise, and need for low fat food choices. I have discussed the need for the patient to take medications as prescribed. If the patient has negative side effects from the medication, they are to CALL the office and not abruptly discontinue the medication without discussion with a practicioner in the office. We will check labs in 3-6 months for follow up on the patient's chronic medical problem and to assure normal liver response to medications. Allergies - chronic - recommended pt to use allergy medication as prescribed. Pt has been counseled as the the appropriate use of the medication. Pt to call if allergy symptoms are not controlled with the medication.Injection today in the office. Vitamin B12 def-injection today in the office. 10/02/2011 Appointment: Valentina Smith WPtel: [phone] [phone] Other 10/02/2011 Patient Education: Patient Medication Summary Completed 10/02/2011 Visit Plan: Pain in joints-arms, elbows-recent fall- discussed natural and expected course of this diagnosis and to alert me if symptoms do not follow expected course, or if any worse. Patient verbalized understanding. Neck lbrc-rgobpow-pskxgqifv physical therapy-patient declined at this time-going to see the ear nose and throat specialist this afternoon. B12 deficiency-B12 injection today in the office. 09/01/2011 Appointment: [phone] [place] [address] Other 09/01/2011 Patient Education: Patient Medication Summary Completed 09/01/2011 Visit Plan: Overweight - chronic issue with this patient. The pt has been counseled about diet changes, calorie restriction, and need to exercise. Pt will RTC in one month for weight check. B12 deficiency - shot given today. Vulvovaginitis - recommended pt to start on diflucan 150mg every other day x 5 doses. Recommended pt to start on yogurt daily. Fibromyalgia - pt has been counseled about healthy diet, exercise, and adequate rest in the evening/nighttime for optimal health and improvement of the fibromyalgia symptoms. Pt is to use medication for pain control and symptom management sparingly. 08/03/2011 Appointment: [facility]ich[phone] [facility] 08/03/2011 Patient Education: Patient Medication Summary Completed 08/03/2011 Visit Plan: Wrist pain- recommend pt to have xrays of the wrists.. Continue with chronic pain medications. Use voltaren gel four times daily. Knee pain- suspect that pt has deep tissue bruising.. I have recommended against an xray at this time as it would expose her to unnecessary radiation. Weight gain - likely due to seroquel. PT EXTREMELY HISTRIONIC IN CLINIC TODAY. SOON I WALKED OUT OF THE EXAM ROOM, THE PATIENT STARTED WIMPERING, THEN WAILING AND SOBBING LOUDLY PROCLAIMING HOW SAD AND HOW MUCH PAIN SHE WAS EXPERIENCING DUE TO HER WRISTS AND KNEES. SOON SHE LEFT THE EXAM ROOM, SHE STOPPED ME BEFORE I WENT INTO THE NEXT PATIENT ROOM AND STATED THAT SHE WAS A VERY STOIC PERSON AND DID NOT LIKE TO SHOW HER PAIN OR DISCOMFORT AND SHE JUST HOLDS IT IN, AND DOES NOT LET OTHERS KNOW OF HER PAIN. 06/29/2011 Appointment: Aicha Thompson WPtel: [phone] [facility] Follow up 06/29/2011 Patient Education: Patient Medication Summary Completed 06/29/2011 Appointment: Aicha Thompson WPtel: [facility] [place] Other 06/24/2011 Visit Plan: Right knee pain, bilateral wrist pain-recent fall-discussed natural and expected course of this diagnosis and to alert me if symptoms do not follow expected course, or if any worse. Patient verbalized understanding. Recommend follow up with Ortho physician if pain persists. 06/22/2011 Appointment: Valentina Smith WPtel: [phone] [phone] [place] Other 06/22/2011 Patient Education: Patient Medication Summary Completed 06/22/2011 Visit Plan: Knee and Ankle pain and instability- recommend re-evaluation by an housing specialist at [facility] [address] [place] [address]. Pt has been recommended to go back to Dr. Corbin at [facility] [address] [place] [address] as my office did not get a report on the MRI - I received his office note that stated that the MRI was negative, but the pt wanted review of the actual MRI and I do not have that information. Specifically, today I addressed the patient's concerns that she needed repeat MRI's of multiple different areas of her body that have been re-injured in her two most recent falls. I have recommended against the MRI's as the recent falls have not been high energy falls and thus are not likely to have caused repeat trauma to the extent that the previously arthritic joints would be so negatively compromised that they would be extensively injured and cause severe derrangement that would further compromise her daily functioning. Restart Voltaren gel at 2 grams to knees up to 4 times a day - may rub in the left over gel from her hands onto her wrists and upper shoulders. Fibromyalgia - I suspect a large component of her joint pain is due to muscle weakness due to pt's relatively sedentary lifestyle and multiple other various physical complaints. I have recommended continuation of the savella for treatment of fibromyalgia. 06/11/2011 Appointment: Aicha Thompson WPtel: [facility] [place] Injection 06/11/2011 Appointment: [place] Aicha WPtel: [facility] [place] Other 06/11/2011 Patient Education: Patient Medication Summary Completed 06/11/2011 Visit Plan: Knee and Ankle pain and instability- recommend evaluation by an housing specialist at [facility]. The pt has been previously referred to specialist at , but she missed her appointment and never had follow-up due to family difficulties and personal illness. The pt is c/o of knee pain at increasing intervals - despite negative radiologic studies, therefore, it is determined to send the pt to a specialist for opinion as to the state of her knees and ankles. Fibromyalgia - I suspect a large component of her joint pain is due to muscle weakness due to pt's relatively sedentary lifestyle and multiple other various physical complaints. I have recommended continuation of the savella for treatment of fibromyalgia. Overweight - pt has been counseled to continue wiht low fat diet, start exercise regimen to loose the weight that she has recently gained causing her to have significant abdominal obesity versus her usual physical appearance. 03/11/2011 Appointment: Aicha Thompson WPtel: [address] [place], [place] [id number] Other 03/11/2011 Patient Education: Patient Medication Summary Completed 03/11/2011 Patient Education: .Amazing charts Diabetic meal planning guide Completed 03/11 Appointment: Aicha Thompson WPtel: [address] [place] [id number] [place] Injection 02/23/2011 Patient Education: Patient Medication Summary Completed 02/23/2011 Visit Plan: iliotibial band syndrome - continue with current treatment per ear nose and throat specialist. I have recommend use of biofreeze to the right outer leg. I have given pt stretching exercises for home. Fibromyalgia - chronic - continue with exercise, heat, and prn pain medication. Knee pain - apparently resolved prior to her appointment today. No change in present management, call if pain returns. 02/12/2011 Appointment: Aicha Thompson [facility]Ptel[phone] Other 02/12/2011 Patient Education: Patient Medication Summary Completed 02/12/2011 Visit Plan: Fall with right join pain-plan to xray right knee, ankle, and foot. Recomended rest, ice and anti-inflammatories as needed for pain. Instructed patient of expected course and need to alert me if symptoms do not follow expected course, or if any worse. Recommended physical therapy-patient does not want to do physical therapy again-recommended she start leg strengthening exercises daily. Okay to use ankle brace as needed for ankle stability. Esophageal Reflux - the patient has been counseled against excessive intake of caffiene, spicy foods, peppermint, and cinnamon - all of which can exacerbate esophageal reflux. The patient is to take medications as prescribed and call the office if the symptoms are not improving. Hypertension - well controlled - continue with current medications, continue with no added salt diet. Pt has been encouraged to exercise daily. The pt has been advised to call the office if there are any acute concerns about change in blood pressure readings at home. 01/29/2011 Patient Education: Patient Medication Summary Completed 01/29/2011 Instructions Comment . Chronic Pain Syndrome - pt has chronic pain - has been maintained on current medications, has not sought out other medications, only uses PRN pain medications as directed, and understands the consequences of over- medication. Right hip/knee/ankle pain-improving since last fall-continue physical therapy exercises-continue supportive shoes and use walker for stability . Ulcer-left knee-fibrous tissue removed from wound bed to reveal pink granulation tissue-wound cleansed and dressing applied. Instructed patient on wound care. Return in 10 days for follow up. MRI RIGHT ANKLE NEOSPORIN TO SORE RIGHT FOOT . Right ankle pain/instability-xray negative-will obtain MRI ankle Ulcer right foot-instructed patient on wound care and the importance of keeping wound clean-f/u in 10-14 days for re-evaluation . Cervicalgia-MRI neck without contrast for further evaluation for further evaluation of persistent neck pain despite PT. . Neck pain-plan to xray cervical spine-refer to ortho as appropriate-patient verbalized understanding of plan. . Chronic Depression and anxiety - the pt has symptoms of chronic anxiety and depression that have been fairly well controlled since the last office visit. The pt has expected periods of exacerbation with abatement of the symptoms with change in situational exposure. No change in current medications. Hypertension - well controlled - continue with current medications, continue with no added salt diet. Pt has been encouraged to exercise daily. The pt has been advised to call the office if there are any acute concerns about change in blood pressure readings at home. . Hypertension - well controlled - continue with current medications, continue with no added salt diet. Pt has been encouraged to exercise daily. The pt has been advised to call the office if there are any acute concerns about change in blood pressure readings at home. Left ankle sprain-continue rest, ice and topical anti inflammatories as directed -call if symptoms do not resolve or if any worse. Chronic Pain Syndrome - pt has chronic pain - has been maintained on current medications, has not sought out other medications, only uses PRN pain medications as directed, and understands the consequences of over-medication. Refill hydrocodone today Okay to take over refilling tramadol-takes #180/month-last refilled 05/29 so it' s not due to be filled today B12 injection today in the office MAKE APPOINTMENT CALLY KELLY/DR IBARRA TO FOLLOW UP WITH LUMBAR RADICULOPATHY GET COPY OF MRI LUMBAR SPINE FROM MEDICAL RECORDS AT THE HOSPITAL FLU SHOT TODAY IN THE OFFICE . Chronic Depression and anxiety - the pt has symptoms of chronic anxiety and depression that have been fairly well controlled since the last office visit. The pt has expected periods of exacerbation with abatement of the symptoms with change in situational exposure. No change in current medications. Lumbar radiculopathy-patient referred for PT-recommend appt with Dr Ibarra . Ulcer left dsmb-jnrvigwz-c/u in 10 days . Hemorrhoidal skin tag-no acute inflammation today -may use hemorrhoid cream as directed as needed-call with any concerns, bleeding, etc. Dr Saunders -[facility] . Bilateral foot and ankle pain-now has AFOs-we have made her several appt with podiatrists which she has not kept-recommend patient call Dr Saunders and reschedule appt with him. Neck pain-KU appt next week-KEEP APPOINTMENT! USE BACTROBAN (MUPIROCIN) OINTMENT ON ABRASION LEFT KNEE TWICE DAILY UNTIL HEALED REFER TO PHYSICAL THERAPY FOR RIGHT KNEE AND ANKLE PAIN-STRENGTHENING IN RIGHT LEG . Abrasion of left knee-RX for bactroban twice daily-keep clean and dry and call if does not resolve. Right knee and ankle weakness/pain-recommend physical therapy for strengthening . Overweight - chronic issue with this patient. The pt has been counseled about diet changes, calorie restriction, and need to exercise. Pt will RTC in one month for weight check. B12 deficiency - shot given today. Vulvovaginitis - recommended pt to start on diflucan 150mg every other day x 5 doses. Recommended pt to start on yogurt daily. Fibromyalgia - pt has been counseled about healthy diet, exercise, and adequate rest in the evening/nighttime for optimal health and improvement of the fibromyalgia symptoms. Pt is to use medication for pain control and symptom management sparingly. . [place] referral - pt to indicate when and who she would like to go to - for neck and back AFO for both legs - [facility] in [place], [place]- fax # [phone] pt has been seen by destination specialist - need brace because of bilateral drop foot - specially made for pt to help prevent falling episodes due to her drop foot bilaterally. Pt has store bought orthotics but the patient has not had enough benefit from the store bought braces and needs custom made orthotics. Pt has sleep apnea - has been on CPAP - needs to have repeat sleep study again. Hypertension - well controlled - continue with current medications, continue with no added salt diet. Pt has been encouraged to exercise daily. The pt has been advised to call the office if there are any acute concerns about change in blood pressure readings at home. Chronic Pain Syndrome - pt has chronic pain - has been maintained on current medications, has not sought out other medications, only uses PRN pain medications as directed, and understands the consequences of over-medication. Use suppositories every night for the next 3 nights . Constipation - uncontrolled - I have discussed with the patient the need for adequate fiber and water intake to facilitate soft, easily passed stools. The pt noted understanding of our conversation. I have also recommended that she continue to follow the instructions given to her from her telegraph lineman and she is to call him if her constipation is uncontrolled. Hemorrhoids-use suppositories as directed. . Anxiety-fairly well controlled-does have added stress with family-no change in medications-call if symptoms worsen Neck pain-recommend rest, ice and anti inflammatories as directed-call if symptoms do not resolve or if any worse. Patient verbalized understanding of plan. . iliotibial band syndrome - continue with current treatment per ear nose and throat specialist. I have recommend use of biofreeze to the right outer leg. I have given pt stretching exercises for home. Fibromyalgia - chronic - continue with exercise, heat, and prn pain medication. Knee pain -apparently resolved prior to her appointment today. No change in present management, call if pain returns. . Foot pain and SI joint pain - Pennsaid - use over affected area twice daily, follow up after appointment with Dr. Guzman Chronic Pain Syndrome - pt has chronic pain - has been maintained on current medications, has not sought out other medications, only uses PRN pain medications as directed, and understands the consequences of over-medication. Recommend anti-inflammatories as needed for pain in your wrists and right knee-okay to take an extra trylenol 325mg in between your pain pills. Okay to use volteran gel as needed up to 4 times per day to your wrists and right knee. Follow up in 1 week. . Right knee pain, bilateral wrist pain-recent fall- discussed natural and expected course of this diagnosis and to alert me if symptoms do not follow expected course, or if any worse. Patient verbalized understanding. Recommend follow up with Ortho physician if pain persists. INCREASE HYDROCODONE TO 5 TABS/DAY-IF PAIN UNCONTROLLED, OK TO INCREASE TO 6 PILLS/DAY BUT DO NOT INCREASE ANY MORE THAN THAT. . Chronic Pain Syndrome - pt has chronic pain - has been maintained on current medications, has not sought out other medications, only uses PRN pain medications as directed, and understands the consequences of over-medication. Chronic Depression and anxiety - the pt has symptoms of chronic anxiety and depression that have been fairly well controlled since the last office visit. The pt has expected periods of exacerbation with abatement of the symptoms with change in situational exposure. No change in current medications. SET UP APPOINTMENT FOR AQUA THERAPY XRAY RIGHT FOOT . Right foot pain-fell on 05/23/15 and still having pain-plan to xray right foot-patient to follow up with Dr Pham as scheduled for chronic feet and ankle instability/pain. Refer patient to [facility] for aqua therapy. Patient verbalized understanding of plan. . Neck pain after fall - Will check x-ray, Pt is to follow up with Dr. Perez. Pt is to notify clinic if symptoms do not improve, if they worsen, or with any questions or concerns. . Joint pain - again reassured Iker and her mom that there is no acute injury for which to do an xray, she had previous injury and twisting/sprain and a fracture reported in 2006 nondisplaced and did not require surgery. She has such peripheral muscle weakness that she has wasting in the interlumbricals of her hands and feet, and also her muscles in her calves and thighs. This wasting and weakness causes increased risk of inury and poor posture and body part placement when ambulating. I have again advised the pt of the need to loose weight, use her braces only when she is going to ambulating for a long period of time, and she needs to loose weight. Fibromyalgia - pt has been counseled about healthy diet, exercise, and adequate rest in the evening/nighttime for optimal health and improvement of the fibromyalgia symptoms. Pt is to use medication for pain control and symptom management sparingly. . Chronic Depression and anxiety - the pt has symptoms of chronic anxiety and depression that have been fairly well controlled since the last office visit. The pt has expected periods of exacerbation with abatement of the symptoms with change in situational exposure. No change in current medications. Hypertension - well controlled - continue with current medications, continue with no added salt diet. Pt has been encouraged to exercise daily. The pt has been advised to call the office if there are any acute concerns about change in blood pressure readings at home. Hyperlipidemia - check labs . Hypertension - well controlled - continue with current medications, continue with no added salt diet. Pt has been encouraged to exercise daily. The pt has been advised to call the office if there are any acute concerns about change in blood pressure readings at home. Chronic Depression and anxiety - the pt has symptoms of chronic anxiety and depression that have been fairly well controlled since the last office visit. The pt has expected periods of exacerbation with abatement of the symptoms with change in situational exposure. No change in current medications. Hyperlipidemia-check labs Vitamin d deficiency-check vitamin d level . Low back pain-discussed need to evaluate cervical issues first-may benefit from PT-continue anti inflammatories as directed Cervical stenosis-called Dr Ramey's office-referral pending-they will call the patient with the appt . Knee and Ankle pain and instability- recommend re- evaluation by an housing specialist at [facility]. Pt has been recommended to go back to Dr. Corbin at [facility] as my office did not get a report on the MRI - I received his office note that stated that the MRI was negative, but the pt wanted review of the actual MRI and I do not have that information. Specifically, today I addressed the patient's concerns that she needed repeat MRI's of multiple different areas of her body that have been re-injured in her two most recent falls. I have recommended against the MRI's as the recent falls have not been high energy falls and thus are not likely to have caused repeat trauma to the extent that the previously arthritic joints would be so negatively compromised that they would be extensively injured and cause severe derrangement that would further compromise her daily functioning. Restart Voltaren gel at 2 grams to knees up to 4 times a day - may rub in the left over gel from her hands onto her wrists and upper shoulders. Fibromyalgia - I suspect a large component of her joint pain is due to muscle weakness due to pt's relatively sedentary lifestyle and multiple other various physical complaints. I have recommended continuation of the savella for treatment of fibromyalgia. REFER TO [facility] EVALUATION DX BILATERAL FOOT AND ANKLE PAIN . Bilateral foot pain-foot drop-patient getting AFOs-refer to podiatry for evaluation-wants to see someone in [place] . Joint pain - again reassured Iker and her mom that there is no acute injury however, due to the inability to adequately evaluate Mary due to her crying out in pain and not allowing a full exam due to her pain, I have agreed to order an xray of her lower leg/ankle. she had previous injury and twisting/sprain and a fracture reported in 2007 nondisplaced and did not require surgery. She has wasting in her hands and feet, and the muscles in her calves and thighs. This wasting and weakness causes increased risk of inury and poor posture and body part placement when ambulating. I have again advised the pt of the need to loose weight, use her braces only when she is going to ambulating for a long period of time, and she needs to attempt to make her home a safer place to ambulate within as she falls frequently at home. Allergies - shot given today Hypertension - uncontrolled - the patient's medications have been modified as documented in the visit note. The patient has been counseled to cut back on salt in diet for a no added salt diet, low fat diet, start an exercise program with low weight bearing exercises and higher aerobic activity for heart health. The patient is to check blood pressure readings as an outpatient and either fax , call, or email the readings to the office next week for practicioner to review. The pt is to call for acute concerns. CONTACT DR RAMEY ABOUT REFERRAL TO FOR NECK ISSUES . Vaginal yeast infection-RX for diflucan B12 deficiency-check labs Recommend anti-inflammatories as needed for pain--okay to take an extra trylenol 325mg in between your pain pills. Okay to use volteran gel as needed up to 4 times per day if you still have some. . Pain in joints-arms, elbows-recent fall-discussed natural and expected course of this diagnosis and to alert me if symptoms do not follow expected course, or if any worse. Patient verbalized understanding. Neck eksh-eedmggi-hayhfgvwj physical therapy-patient declined at this time- going to see the ear nose and throat specialist this afternoon. B12 deficiency-B12 injection today in the office. . Lumbar radiculopathy - will order MRI of the Lumbar spine per recommendations from the EMG report - will refer to ortho if indicated. Chronic Pain Syndrome - pt has chronic pain - has been maintained on current medications, has not sought out other medications, only uses PRN pain medications as directed, and understands the consequences of over-medication. . Allergies - chronic - recommended pt to use allergy medication as prescribed. Pt has been counseled as the the appropriate use of the medication. Pt to call if allergy symptoms are not controlled with the medication. If using nasal spray, instructions as follows: Nasal spray- use twice daily, one spray per nostril twice daily, after 30 minutes, rinse out nose with saline spray.. Use opposite hand per nostril to spray in the nasal steroid allergy spray. Kenalog injection today in the office. . Ulcer of vfvl-ogiyddb-gkgyy instructions provided today and instructed patient to return as directed-keep wound clean and dry. Hemorrhoids-refill anusol suppositories and use as directed B12 deficiency-b12 injection today in the office Amqqpcdno-dtmlmjynvulz-ptjvsmt injection today in the office-continue oral medications as directed . Ulcer of knee healing-silver nitrate to granulation tissue-instructed patient to monitor and call if it does not completely heal for appointment-instructed on wound care-patient and mother verbalized understanding of plan. May use tylenol as needed for pain not to exceed 3gm tylenol in 24 hours. Go to the hospital today for xrays of right knee, ankle, foot. We will call you with the results. . Fall with right join pain-plan to xray right knee, ankle, and foot. Recomended rest, ice and anti-inflammatories as needed for pain. Instructed patient of expected course and need to alert me if symptoms do not follow expected course, or if any worse. Recommended physical therapy-patient does not want to do physical therapy again-recommended she start leg strengthening exercises daily. Okay to use ankle brace as needed for ankle stability. Esophageal Reflux - the patient has been counseled against excessive intake of caffiene, spicy foods, peppermint, and cinnamon - all of which can exacerbate esophageal reflux. The patient is to take medications as prescribed and call the office if the symptoms are not improving. Hypertension - well controlled - continue with current medications, continue with no added salt diet. Pt has been encouraged to exercise daily. The pt has been advised to call the office if there are any acute concerns about change in blood pressure readings at home. . Hypertension - well controlled - continue with current medications, continue with no added salt diet. Pt has been encouraged to exercise daily. The pt has been advised to call the office if there are any acute concerns about change in blood pressure readings at home. Arthritis- occasionally uncontrolled symptoms- Use tylenol for break through pain symptoms. Chronic Depression and anxiety - the pt has symptoms of chronic anxiety and depression that have been fairly well controlled since the last office visit. The pt has expected periods of exacerbation with abatement of the symptoms with change in situational exposure. No change in current medications. Asthma - chronic problem for this patient. We have reviewed chronic treatment strategy, symptom control, and plans for acute exacerbations. No changes today to the current treatment plan as the patient is stable, monitor for acute changes B12 injection . Neck nizl-[id number] to continue f/u with [facility]-her symptoms have resolved since her recent fall -full ROM, denies pain and/or numbness-instructed to call if symptoms return Laceration scalp-healing well-no further treatment indicated-keep clean dry Minor head injury-possible mild concussion-patient has return to baseline-alert and talkative today in the office -instructed patient to call for worsening headaches, nausea/vomiting, confusion, etc. Patient and her mother verbalized understanding of plan. . Right foot pain-lantar fasciitis- pt was educated that this is an inflammatory process, need to stretch the foot and reduce inflammation by using a frozen bottle of water or a tennis ball on the bottom of the foot at least three times a day until the pain is improved. Recommend xray right foot if pain does not improve with anti-inflammatories and exercises Anxiety-controlled on current regimen-no changes in medications Dr. Ramey - [facility] . Hypertension - well controlled - continue with current medications, continue with no added salt diet. Pt has been encouraged to exercise daily. The pt has been advised to call the office if there are any acute concerns about change in blood pressure readings at home. Hyperlipidemia - pt has been counseled about appropriate diet, exercise, and need for low fat food choices. I have discussed the need for the patient to take medications as prescribed. If the patient has negative side effects from the medication, they are to CALL the office and not abruptly discontinue the medication without discussion with a practitioner in the office. We will check labs in 3-6 months for follow up on the patient's chronic medical problem and to assure normal liver response to medications. Cervical stenosis-saw Dr Ramey-Dr Ramey is going to send her to for further evaluation Check labs-cbc, cmp, tsh, lipid panel-I gave you a prescription to take to [facility]. DO NOT EAT 8-12 hours before getting bloodwork. . Allergies - Advised avoidance of allergens if possible, we discussed natural and expected course of this diagnosis and need to alert me if symtpoms do not follow expected course, or if any worse. Kenalog injection in the office today. Hyperlipidemia - pt has been counseled about appropriate diet, exercise, and need for low fat food choices. I have discussed the need for the patient to take medications as prescribed. If the patient has negative side effects from the medication, they are to CALL the office and not abruptly discontinue the medication without discussion with a practicioner in the office. We will check labs in 3-6 months for follow up on the patient's chronic medical problem and to assure normal liver response to medications CHECK LABS WILL GET REPORT FROM DR GRAY . Lumbar radiculopathy-get records from Dr Gray-refer to back specialist/ pain management Chronic Depression and anxiety - the pt has symptoms of chronic anxiety and depression that have been fairly well controlled since the last office visit. The pt has expected periods of exacerbation with abatement of the symptoms with change in situational exposure. No change in current medications. CHECK LABS WILL GET REPORT FROM DR GRAY . Lumbar radiculopathy-get records from Dr Gray-refer to back specialist/ pain management Chronic Depression and anxiety - the pt has symptoms of chronic anxiety and depression that have been fairly well controlled since the last office visit. The pt has expected periods of exacerbation with abatement of the symptoms with change in situational exposure. No change in current medications. Check chest xray Take your nexium in the morning and see if that helps your acid reflux. If not, let us know. . Chest wall pain-recent fall-plan to check chest xray-recommend anti inflammatories Esophageal Reflux - the patient has been counseled against excessive intake of caffiene, spicy foods, peppermint, and cinnamon - all of which can exacerbate esophageal reflux. The patient is to take medications as prescribed and call the office if the symptoms are not improving. Allergies - chronic - recommended pt to use allergy medication as prescribed. Pt has been counseled as the the appropriate use of the medication. Pt to call if allergy symptoms are not controlled with the medication. . Ulcer of knee-fibrous tissue debrided today in the office --wound care instructions provided for patient-return in 1 week for follow up. DEMETRIA WRAPS TO LOWER LEGS CUT BACK ON SALTY FOODS KEEP WOUND ON LEFT KNEE COVERED, CHANGE DRESSING DAILY, CLEANSED AND APPLY ANTIBIOTIC OINTMENT . Edema - pt has been advised to elevate legs to prevent dependent edema, compression has been recommended to help to naturally decrease peripheral edema. Diuretic use has been discussed and pt has been instructed in appropriate use of such medication as necessary to further attempt to reduce peripheral edema. Chronic wound of knee-discussed wound care-follow up in 1 month Anemia-check labs . Knee and Ankle pain and instability- recommend evaluation by an housing specialist at [facility]. The pt has been previously referred to specialist at , but she missed her appointment and never had follow-up due to family difficulties and personal illness. The pt is c/o of knee pain at increasing intervals - despite negative radiologic studies, therefore, it is determined to send the pt to a specialist for opinion as to the state of her knees and ankles. Fibromyalgia - I suspect a large component of her joint pain is due to muscle weakness due to pt's relatively sedentary lifestyle and multiple other various physical complaints. I have recommended continuation of the savella for treatment of fibromyalgia. Overweight - pt has been counseled to continue wiht low fat diet, start exercise regimen to loose the weight that she has recently gained causing her to have significant abdominal obesity versus her usual physical appearance. . Asthma - chest xray and symbicort sample today. Patellofemoral syndrome- recommended physical therapy. Costochondritis - recommended pt to use antiinflammatories as able for treatment of rib/sternum irritation and for pt to call if her symptoms do not improve. Increase NIACIN 500mg to 2 tabs at HS. Increase fish oil 1000mg to 4 times daily. Recommend low fat diet to help decrease your triglycerides. We will repeat your cholesterol panel in 3 months. Eat a banana a few times a week-your potassium was slightly low. . Hyperlipidemia - pt has been counseled about appropriate diet, exercise, and need for low fat food choices. I have discussed the need for the patient to take medications as prescribed. If the patient has negative side effects from the medication, they are to CALL the office and not abruptly discontinue the medication without discussion with a practicioner in the office. We will check labs in 3-6 months for follow up on the patient's chronic medical problem and to assure normal liver response to medications. Allergies - chronic - recommended pt to use allergy medication as prescribed. Pt has been counseled as the the appropriate use of the medication. Pt to call if allergy symptoms are not controlled with the medication.Injection today in the office. Vitamin B12 def-injection today in the office. look for creams or rubs with chamomile or willow bark or lavender - two old goats (may be called three old goats) at [employer] and home. . Hypertension - well controlled - continue with current medications, continue with no added salt diet. Pt has been encouraged to exercise daily. The pt has been advised to call the office if there are any acute concerns about change in blood pressure readings at home. Chronic depression and anxiety - pt to have dose of valium increased and continue with savella and effexor Fibromyalgia - I have advised against use of serrapatase and use of msm due to possible side effects. . Ulcer of knee-sharp debridement today in the office-- wound care instructions provided for patient-patient and mother verbalized understanding of plan. Follow up next week. . Cervical stenosis-saw Dr Ramey-Dr Ramey is going to send her to for further evaluation Bilateral ankle pain-xray ankles . Wrist pain- recommend pt to have xrays of the wrists.. Continue with chronic pain medications. Use voltaren gel four times daily. Knee pain- suspect that pt has deep tissue bruising.. I have recommended against an xray at this time as it would expose her to unnecessary radiation. Weight gain - likely due to seroquel. PT EXTREMELY HISTRIONIC IN CLINIC TODAY. SOON I WALKED OUT OF THE EXAM ROOM, THE PATIENT STARTED WIMPERING, THEN WAILING AND SOBBING LOUDLY PROCLAIMING HOW SAD AND HOW MUCH PAIN SHE WAS EXPERIENCING DUE TO HER WRISTS AND KNEES. SOON SHE LEFT THE EXAM ROOM, SHE STOPPED ME BEFORE I WENT INTO THE NEXT PATIENT ROOM AND STATED THAT SHE WAS A VERY STOIC PERSON AND DID NOT LIKE TO SHOW HER PAIN OR DISCOMFORT AND SHE JUST HOLDS IT IN, AND DOES NOT LET OTHERS KNOW OF HER PAIN. B12 INJECTION TODAY . Chronic Depression and anxiety - the pt has symptoms of chronic anxiety and depression that have been fairly well controlled since the last office visit. The pt has expected periods of exacerbation with abatement of the symptoms with change in situational exposure. No change in current medications. Recommend she discuss incidence with EMT at her next counseling session Chest wall pain-xray ribs negative-continue to monitor symptoms B12 INJECTION TODAY . Chronic Depression and anxiety - the pt has symptoms of chronic anxiety and depression that have been fairly well controlled since the last office visit. The pt has expected periods of exacerbation with abatement of the symptoms with change in situational exposure. No change in current medications. Recommend she discuss incidence with EMT at her next counseling session Chest wall pain-xray ribs negative-continue to monitor symptoms Hypoxemia-patient wears oxygen at 2l at night and continues to benefit from therapy B12 INJECTION TODAY . Chronic Depression and anxiety - the pt has symptoms of chronic anxiety and depression that have been fairly well controlled since the last office visit. The pt has expected periods of exacerbation with abatement of the symptoms with change in situational exposure. No change in current medications. Recommend she discuss incidence with EMT at her next counseling session Chest wall pain-xray ribs negative-continue to monitor symptoms EMG referral to [facility] . Hypertension - well controlled - continue with current medications, continue with no added salt diet. Pt has been encouraged to exercise daily. The pt has been advised to call the office if there are any acute concerns about change in blood pressure readings at home. Cervical stenosis-refer to [facility] Lumbar radiculopathy-right leg pain/numbness-refer for EMG testing-will see if Dr Pope does testing . Ulcer-left knee-fibrous tissue removed from wound bed to reveal pink granulation tissue-wound cleansed and dressing applied. Instructed patient on wound care. Return in 10 days for follow up. . Ulcer of knee-wound care instructions provided for patient-patient and mother verbalized understanding of plan. Check CBC, CMP, Influenza swab, and chest xray STAT. Pneumonia - Pt has been diagnosed with pneumonia by physical exam. A chest xray has been ordered as have antibiotics. The pt is aware of the diagnosis and the need for acute treatment of this illness. Plan to check stat labs at the hospital and start patient on abx jessica. Instructed patient and her mom to go to ER if symptoms do not improve, or if any worse. Fever-recommend she discussed her post infusion reactions with Dr. Grace before her next infusion
--- OUTSIDE RECORDS SUMMARY | 2017-09-09 10:23 | XMS REPORT | CCD ---
Author Author Aicha Thompson Organization Aicha Thompson MD, [facility] Address [address] [place] [address] Phone Care Team Providers Care Language Pathologist Name Role Phone PP Unavailable CCM Unavailable Summary Purpose Interface Exchange Insurance Providers Payer name Policy type / Coverage type Covered alliance party ID Effective Begin Date Effective End Date WPS Medicare Part B Medicare Part B [id number] 2013 Unknown [facility] Medicare Part B [id number] 2013 Unknown Family history Grandmother Diagnosis Age [...] status Unknown 01/29/[address]: 413006833 Never smoker 01/29/[address]: 617836 Currently drinks alcohol mixed drink before bed 01/29/2011 Has the patient ever used illegal drugs? Unknown Has never used illegal drugs 01/29/2011 Allergies, Adverse Reactions, Alerts Substance Reaction Codes Entered Date Inactivated Date Status * OTHER REACTION - SEE ANSWER BOX anaphylaxis Unknown 2016 No Inactive Date Active Past Medical History Illness Codes Condition Status Onset Date Resolved Date Chronic pain syndrome ICD-9: 338.4 ICD-10: G89.4 Active 03/04/2016 Unknown Essential (primary) hypertension ICD-9: 401.1 ICD-10: I10 Active 06/25/2016 Unknown Vitamin B12 deficiency anemia due to intrinsic factor deficiency ICD-9: 281.0 ICD-10: D51.0 Active 04/19/2016 Unknown Cervicalgia ICD-9: 723.1 ICD-10: M54.2 Active 05/06/2016 Unknown Laceration without foreign body of scalp, initial encounter ICD-9: 873.0 ICD-10: S01.01XA Active 04/27/2017 Unknown Residual hemorrhoidal skin tags ICD-9: 455.9 ICD-10: K64.4 Active 04/06/2017 Unknown Pain in left foot ICD- 9: 729.5 ICD-10: M79.672 Active 05/26/2012 Unknown Pain in right foot ICD -9: 729.5 ICD-10: M79.671 Active 06/24/2015 Unknown Pain in right leg ICD- 9: [...] sleep apnea Unknown Active 05/14/2011 Unknown 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 03/11/2011 Unknown Overweight (BMI [...] Problems Condition Codes Effective Dates Condition Status Chronic pain syndrome ICD-9: 338.4 ICD-10: G89.4 03/04/2016 Active Essential (primary) hypertension ICD-9: 401.1 ICD-10: I10 06/25/2016 Active Vitamin B12 deficiency anemia due to intrinsic factor deficiency ICD-9: 281.0 ICD-10: D51.0 04/19/2016 Active Cervicalgia ICD-9: 723.1 ICD-10: M54.2 05/06/2016 Active Laceration without foreign body of scalp, initial encounter ICD-9: 873.0 ICD-10: S01.01XA 04/27/2017 Active Residual hemorrhoidal skin tags ICD-9: 455.9 ICD-10: K64.4 04/06/2017 Active Pain in left foot ICD- 9: 729.5 ICD-10: M79.672 05/26/2012 Active Pain in right foot ICD -9: 729.5 ICD-10: M79.671 06/24/2015 Active Pain in right leg ICD- 9: [...] Active sleep apnea Unknown 05/14/2011 Active 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 03/11/2011 Active Overweight (BMI 25.0-29.9) [...] Start Date Stop Date Status Fill Instructions Valium 10 mg tablet RxNorm: 622273 1 Tablet(s) QID as needed 07/09/2017 09/06/2017 Active Effexor XR 150 mg capsule,extended release RxNorm: 384505 Capsule(s) 1 CAPSULE(S) PO BID 07/07/2017 06/01/2018 Active TAKE 1 CAPSULE BY MOUTH TWICE DAILY metoprolol tartrate 25 mg tablet RxNorm: 964072 Tablet(s) TABLET(S) 1/2 TABLET(S) PO BID TAKE 1/2 TABLET BY MOUTH TWICE DAILY 07/07/2017 No Stop Date Active diazepam 10 mg tablet RxNorm: 705944 Tablet(s) TAKE 1 TABLET BY MOUTH FOUR TIMES DAILY NEEDED 07/07/2017 08/04/2017 Active cyanocobalamin (vit B-12) 1,000 mcg/mL injection solution RxNorm: 490174 1 Milliliter(s) Inj 07/06/2017 07/06/2017 Inactive tramadol 50 mg tablet RxNorm: 376953 1-2 Tablet(s) PO TID as needed 06/21/2017 09/18/2017 Active hydrocodone 10 mg-acetaminophen 325 mg tablet RxNorm: 172305 1-2 Tablet(s) PO Q6 as needed for pain 06/17/2017 07/09/2017 Inactive cyclobenzaprine 10 mg tablet RxNorm: 417987 TAKE 1 TABLET BY MOUTH THREE TIMES DAILY NEEDED FOR MUSCLE SPASMS 06/08/2017 08/31/2018 Active Claritin-D 12 Hour 5 mg-120 mg tablet,extended release RxNorm: 5904889 Tablet(s) as needed TAKE 1 TABLET BY MOUTH TWICE DAILY NEEDED 201709/05/2017 Active Lipitor 20 mg tablet RxNorm: 715809 1 TABLET(S) PO DAILY 201706/02/2018 Active TAKE ONE TABLET BY MOUTH EVERY NIGHT AT BEDTIME trazodone 100 mg tablet RxNorm: 401176 TABLET(S) TAKE 2 TABLETS BY MOUTH EVERY NIGHT AT BEDTIME 05/17/2017 08/14/2017 Active cyclobenzaprine 5 mg tablet RxNorm: 991633 Tablet(s) PO TAKE 1 TABLET BY MOUTH THREE TIMES DAILY NEEDED FOR MUSCLE SPASMS (New dose has not been sent to pharmacy) 05/11/2017 No Stop Date Active Valium 5 mg tablet RxNorm: 868422 1 Tablet(s) PO QID as needed (New dose has not been sent to pharmacy) 05/11/2017 No Stop Date Active diazepam 10 mg tablet RxNorm: 817346 TAKE 1 TABLET BY MOUTH FOUR TIMES DAILY NEEDED 04/28/2017 05/27/2017 Inactive hydrocodone 10 mg-acetaminophen 325 mg tablet RxNorm: 084825 1-2 Tablet(s) PO Q6 as needed for pain 04/27/2017 05/19/2017 Inactive cyanocobalamin (vit B-12) 1,000 mcg/mL injection solution RxNorm: 911602 1 Milliliter(s) Inj 04/27/2017 04/27/2017 Inactive hydrocodone 10 mg-acetaminophen 325 mg tablet RxNorm: 850411 1-2 Tablet(s) PO Q6 as needed for pain 03/17/2017 04/08/2017 Inactive Seroquel 100 mg tablet RxNorm: 598813 1 TABLET(S) PO BID 201603/10/2018 Active TAKE 1 TABLET BY MOUTH TWICE DAILY Valium 10 mg tablet RxNorm: 712910 1 Tablet(s) QID as needed 03/05/2017 05/03/2017 Inactive Claritin-D 12 Hour 5 mg-120 mg tablet,extended release RxNorm: 7308597 Tablet(s) as needed TAKE 1 TABLET BY MOUTH TWICE DAILY NEEDED 201604/25/2017 Inactive pantoprazole 40 mg tablet,delayed release RxNorm: 575430 TAKE 1 TABLET BY MOUTH EVERY DAY 02/26/2017 08/24/2017 Active tramadol 50 mg tablet RxNorm: 414404 1-2 Tablet(s) PO TID as needed 02/17/2017 05/17/2017 Inactive hydrocodone 10 mg-acetaminophen 325 mg tablet RxNorm: 245106 1-2 Tablet(s) PO Q6 as needed for pain 02/17/2017 03/11/2017 Inactive Valium 10 mg tablet RxNorm: 597871 1 Tablet(s) QID as needed 02/02/2017 03/03/2017 Inactive (Response to an electronic controlled substance refill request - RxReferenceNumber: [id number]|1|0|1) Advair Diskus 250 mcg-50 mcg/dose powder for inhalation RxNorm: 7063573 1 Puff(s) INH BID 01/21/2017 05/20/2017 Inactive nystatin 100,000 unit/gram topical powder RxNorm: 345445 1 APPLICATION TOP QID UNTIL HEALED 01/21/2017 No Stop Date Active hydrocodone 10 mg-acetaminophen 325 mg tablet RxNorm: 293285 1-2 Tablet(s) PO Q6 as needed for pain 01/21/2017 02/11/2017 Inactive metoprolol tartrate 25 mg tablet RxNorm: 489261 TABLET(S) 1/2 TABLET(S) PO BID TAKE 1/2 TABLET BY MOUTH TWICE DAILY 01/18/2017 07/06/2017 Inactive Effexor XR 150 mg capsule,extended release RxNorm: 475305 1 CAPSULE(S) PO BID 01/11/2017 07/06/2017 Inactive TAKE 1 CAPSULE BY MOUTH TWICE DAILY Effexor XR 150 mg capsule,extended release RxNorm: 022848 1 Capsule(s) PO BID 1 CAPSULE(S) PO BID 01/08/2017 07/06/2017 Inactive TAKE 1 CAPSULE BY MOUTH TWICE DAILY nystatin 100,000 unit/gram topical powder RxNorm: 659113 1 APPLICATION TOP QID UNTIL HEALED 12/17/2016 01/20/2017 Inactive hydrocodone 10 mg-acetaminophen 325 mg tablet RxNorm: 663445 1-2 Tablet(s) PO Q6 as needed for pain 12/17/2016 01/07/2017 Inactive Claritin-D 12 Hour 5 mg-120 mg tablet,extended release RxNorm: 4867368 Tablet(s) as needed TAKE 1 TABLET BY MOUTH TWICE DAILY NEEDED 201602/12/2017 Inactive Lipitor 20 mg tablet RxNorm: 169484 1 TABLET(S) PO DAILY 201606/07/2017 Inactive TAKE ONE TABLET BY MOUTH EVERY NIGHT AT BEDTIME Advair Diskus 250 mcg-50 mcg/dose powder for inhalation RxNorm: 9044040 1 Puff(s) INH BID 11/26/2016 01/20/2017 Inactive Valium 10 mg tablet RxNorm: 130643 1 Tablet(s) QID as needed 11/24/2016 01/22/2017 Inactive (Response to an electronic controlled substance refill request - RxReferenceNumber: [id number]|1|0|1) cyanocobalamin (vit B-12) 1,000 mcg/mL injection solution RxNorm: 711072 1 Milliliter(s) Inj 11/17/2016 11/17/2016 Inactive tramadol 50 mg tablet RxNorm: 649960 1-2 Tablet(s) PO TID as needed 11/06/2016 02/02/2017 Inactive hydrocodone 10 mg-acetaminophen 325 mg tablet RxNorm: 074254 1-2 Tablet(s) PO Q6 as needed for pain 11/06/2016 11/27/2016 Inactive nystatin 100,000 unit/gram topical powder RxNorm: 913446 1 Application TOP QID until healed 10/27/2016 12/16/2016 Inactive cyanocobalamin (vit B-12) 1,000 mcg/mL injection solution RxNorm: 127865 1 Milliliter(s) Inj 10/12/2016 10/12/2016 Inactive trazodone 100 mg tablet RxNorm: 584802 Tablet(s) TAKE 2 TABLETS BY MOUTH EVERY NIGHT AT BEDTIME 09/24/2016 03/22/2017 Inactive Valium 10 mg tablet RxNorm: 799370 1 Tablet(s) QID as needed 09/24/2016 11/22/2016 Inactive (Response to an electronic controlled substance refill request - RxReferenceNumber: [id number]|1|0|1) Savella 100 mg tablet RxNorm: 957588 TABLET(S) PO TAKE 1 TABLET BY MOUTH DAILY 09/18/2016 No Stop Date Active pantoprazole 40 mg tablet,delayed release RxNorm: 809797 TAKE 1 TABLET BY MOUTH EVERY DAY 09/18/2016 02/25/2017 Inactive cyanocobalamin (vit B-12) 1,000 mcg/mL injection solution RxNorm: 011919 1 Milliliter(s) Inj 09/11/2016 09/11/2016 Inactive hydrocodone 10 mg-acetaminophen 325 mg tablet RxNorm: 649331 1-2 Tablet(s) PO Q6 as needed for pain 08/24/2016 11/05/2016 Inactive (Response to an electronic controlled substance refill request - RxReferenceNumber: [id number]|1|0|1) Claritin-D 12 Hour 5 mg-120 mg tablet,extended release RxNorm: 6117518 Tablet(s) TAKE 1 TABLET BY MOUTH TWICE DAILY NEEDED 08/13/2016 10/10/2016 Inactive tramadol 50 mg tablet RxNorm: 359047 1-2 Tablet(s) PO TID PRN as needed 08/11/2016 11/05/2016 Inactive metoprolol tartrate 25 mg tablet RxNorm: 074577 TABLET(S) 1/2 TABLET(S) PO BID TAKE 1/2 TABLET BY MOUTH TWICE DAILY 08/10/2016 01/17/2017 Inactive pantoprazole 40 mg tablet,delayed release RxNorm: 125714 TAKE 1 TABLET BY MOUTH EVERY DAY 08/10/2016 11/05/2016 Inactive Savella 100 mg tablet RxNorm: 828902 TABLET(S) PO TAKE 1 TABLET BY MOUTH DAILY 08/10/2016 11/05/2016 Inactive Ventolin HFA 90 mcg/actuation aerosol inhaler RxNorm: 696524 1 OR 2 PUFF(S) INH Q6 PRN NEEDED 08/07/2016 02/02/2017 Inactive Diflucan 150 mg tablet RxNorm: 332460 1 Tablet(s) PO daily 08/201608/13/2016 Inactive nystatin 100,000 unit/mL oral suspension RxNorm: 829278 5 Milliliter(s) PO QID 08/07/2016 08/16/2016 Inactive hydrocodone 10 mg-acetaminophen 325 mg tablet RxNorm: 211172 1-2 Tablet(s) PO Q6 as needed for pain 08/04/2016 08/23/2016 Inactive (Response to an electronic controlled substance refill request - RxReferenceNumber: [id number]|1|0|1) Valium 10 mg tablet RxNorm: 186347 1 Tablet(s) QID as needed 07/20/2016 09/17/2016 Inactive (Response to an electronic controlled substance refill request - RxReferenceNumber: [id number]|1|0|1) tramadol 50 mg tablet RxNorm: 223840 1-2 Tablet(s) PO TID PRN as needed 07/15/2016 11/05/2016 Inactive ok to give 1 month zygpvc=028 tablets cyanocobalamin (vit B-12) 1,000 mcg/mL injection solution RxNorm: 981368 Milliliter(s) Inj 07/03/2016 07/03/2016 Inactive Seroquel 100 mg tablet RxNorm: 756309 1 TABLET(S) PO BID 201603/15/2017 Inactive TAKE 1 TABLET BY MOUTH TWICE DAILY hydrocodone 10 mg-acetaminophen 325 mg tablet RxNorm: 841161 1-2 Tablet(s) PO Q6 as needed for pain 06/26/2016 08/03/2016 Inactive (Response to an electronic controlled substance refill request - RxReferenceNumber: [id number]|1|0|1) Valium 10 mg tablet RxNorm: 072601 1 Tablet(s) QID as needed 05/11/2016 07/09/2016 Inactive (Response to an electronic controlled substance refill request - RxReferenceNumber: [id number]|1|0|1) tramadol 50 mg tablet RxNorm: 080057 1-2 Tablet(s) PO TID PRN as needed 05/11/2016 07/08/2016 Inactive ok to give 1 month exrdkh=564 tablets cyclobenzaprine 10 mg tablet RxNorm: 660007 TAKE 1 TABLET BY MOUTH THREE TIMES DAILY NEEDED FOR MUSCLE SPASMS 05/11/2016 05/10/2017 Inactive hydrocodone 10 mg-acetaminophen 325 mg tablet RxNorm: 511650 1-2 Tablet(s) PO Q6 as needed for pain 05/06/2016 06/25/2016 Inactive (Response to an electronic controlled substance refill request - RxReferenceNumber: [id number]|1|0|1) cyanocobalamin (vit B-12) 1,000 mcg/mL injection solution RxNorm: 305461 1 Milliliter(s) Inj 04/20/2016 04/20/2016 Inactive hydrocodone 10 mg-acetaminophen 325 mg tablet RxNorm: 981068 1-2 Tablet(s) PO Q6 as needed for pain 04/03/2016 05/05/2016 Inactive (Response to an electronic controlled substance refill request - RxReferenceNumber: [id number]|1|0|1) pantoprazole 40 mg tablet,delayed release RxNorm: 916577 TAKE 1 TABLET BY MOUTH EVERY DAY 04/02/2016 08/09/2016 Inactive Claritin-D 12 Hour 5 mg-120 mg tablet,extended release RxNorm: 0295729 Tablet(s) TAKE 1 TABLET BY MOUTH TWICE DAILY NEEDED 04/02/2016 11/05/2016 Inactive hydrocodone 10 mg-acetaminophen 325 mg tablet RxNorm: 037996 1-2 Tablet(s) PO Q6 as needed for pain 03/12/2016 04/02/2016 Inactive (Response to an electronic controlled substance refill request - RxReferenceNumber: [id number]|1|0|1) Effexor XR 150 mg capsule,extended release RxNorm: 411903 1 CAPSULE(S) PO BID 03/05/2016 01/07/2017 Inactive TAKE 1 CAPSULE BY MOUTH TWICE DAILY Ventolin HFA 90 mcg/actuation aerosol inhaler RxNorm: 349123 1 OR 2 PUFF(S) INH Q6 PRN NEEDED 02/19/2016 08/06/2016 Inactive cyanocobalamin (vit B-12) 1,000 mcg/mL injection solution RxNorm: 575661 Milliliter(s) Inj 02/13/2016 02/13/2016 Inactive hydrocodone 10 mg-acetaminophen 325 mg tablet RxNorm: 991653 1-2 Tablet(s) PO Q6 as needed for pain 02/05/2016 03/11/2016 Inactive (Response to an electronic controlled substance refill request - RxReferenceNumber: [id number]|1|0|1) Valium 10 mg tablet RxNorm: 892847 1 Tablet(s) QID as needed 02/05/2016 05/04/2016 Inactive (Response to an electronic controlled substance refill request - RxReferenceNumber: [id number]|1|0|1) tramadol 50 mg tablet RxNorm: 046433 1-2 Tablet(s) PO TID PRN as needed 02/05/2016 11/05/2016 Inactive ok to give 1 month ctyhwe=207 tablets hydrocodone 10 mg-acetaminophen 325 mg tablet RxNorm: 066153 1-2 Tablet(s) PO Q6 as needed for pain 01/08/2016 02/04/2016 Inactive (Response to an electronic controlled substance refill request - RxReferenceNumber: [id number]|1|0|1) metoprolol tartrate 25 mg tablet RxNorm: 362821 Tablet(s) 1/2 TABLET(S) PO BID TAKE 1/2 TABLET BY MOUTH TWICE DAILY 01/08/2016 08/09/2016 Inactive Symbicort 160 mcg-4.5 mcg/actuation HFA aerosol inhaler RxNorm: 1715560 2 INH BID 01/03/2016 11/25/2016 Inactive Symbicort 160 mcg-4.5 mcg/actuation HFA aerosol inhaler RxNorm: 9547896 1 INH daily 01/03/2016 01/02/2016 Inactive Lipitor 20 mg tablet RxNorm: 784371 1 TABLET(S) PO DAILY 201506/26/2016 Inactive TAKE ONE TABLET BY MOUTH EVERY NIGHT AT BEDTIME trazodone 100 mg tablet RxNorm: 853843 TAKE 2 TABLETS BY MOUTH EVERY NIGHT AT BEDTIME 12/30/2015 09/23/2016 Inactive Savella 100 mg tablet RxNorm: 909257 TABLET(S) PO TAKE 1 TABLET BY MOUTH DAILY 12/30/2015 08/09/2016 Inactive hydrocodone 10 mg-acetaminophen 325 mg tablet RxNorm: 747594 1-2 Tablet(s) PO Q6 as needed for pain 12/12/2015 01/07/2016 Inactive (Response to an electronic controlled substance refill request - RxReferenceNumber: [id number]|1|0|1) cyanocobalamin (vit B-12) 1,000 mcg/mL injection solution RxNorm: 533199 1 Milliliter(s) Inj 12/02/2015 12/02/2015 Inactive hydrocodone 10 mg-acetaminophen 325 mg tablet RxNorm: 682932 1-2 Tablet(s) PO Q6 as needed for pain 12/02/2015 12/11/2015 Inactive (Response to an electronic controlled substance refill request - RxReferenceNumber: [id number]|1|0|1) Claritin-D 12 Hour 5 mg-120 mg tablet,extended release RxNorm: 0657463 Tablet(s) TAKE 1 TABLET BY MOUTH TWICE DAILY 11/11/2015 11/10/2015 Inactive Claritin-D 12 Hour 5 mg-120 mg tablet,extended release RxNorm: 7959693 Tablet(s) TAKE 1 TABLET BY MOUTH TWICE DAILY NEEDED 11/11/2015 01/06/2016 Inactive tramadol 50 mg tablet RxNorm: 661115 1-2 Tablet(s) PO TID PRN as needed 11/05/2015 11/05/2016 Inactive ok to give 1 month cmoqta=927 tablets Valium 10 mg tablet RxNorm: 468840 1 Tablet(s) QID as needed 11/05/2015 02/02/2016 Inactive (Response to an electronic controlled substance refill request - RxReferenceNumber: [id number]|1|0|1) cyanocobalamin (vit B-12) 1,000 mcg/mL injection solution RxNorm: 743164 1 Milliliter(s) Inj 10/29/2015 10/29/2015 Inactive hydrocodone 10 mg-acetaminophen 325 mg tablet RxNorm: 227977 1-2 Tablet(s) PO Q6 as needed for pain 10/28/2015 12/01/2015 Inactive (Response to an electronic controlled substance refill request - RxReferenceNumber: [id number]|1|0|1) pantoprazole 40 mg tablet,delayed release RxNorm: 898625 TAKE 1 TABLET BY MOUTH EVERY DAY 10/08/2015 04/01/2016 Inactive Seroquel 100 mg tablet RxNorm: 531267 1 TABLET(S) PO BID 201506/29/2016 Inactive TAKE 1 TABLET BY MOUTH TWICE DAILY trazodone 100 mg tablet RxNorm: 657248 TAKE 2 TABLETS BY MOUTH EVERY NIGHT AT BEDTIME 10/08/2015 10/01/2016 Inactive Lipitor 20 mg tablet RxNorm: 575723 1 TABLET(S) PO DAILY 201504/04/2016 Inactive TAKE ONE TABLET BY MOUTH EVERY NIGHT AT BEDTIME hydrocodone 10 mg-acetaminophen 325 mg tablet RxNorm: 739442 1-2 Tablet(s) PO Q6 as needed for pain 09/19/2015 10/18/2015 Inactive (Response to an electronic controlled substance refill request - RxReferenceNumber: [id number]|1|0|1) Valium 10 mg tablet RxNorm: 166293 1 Tablet(s) QID as needed 09/05/2015 11/03/2015 Inactive (Response to an electronic controlled substance refill request - RxReferenceNumber: [id number]|1|0|1) Savella 100 mg tablet RxNorm: 388058 Tablet(s) PO TAKE 1 TABLET BY MOUTH DAILY 07/19/2015 11/05/2016 Inactive Zithromax Z-Lauro 250 mg tablet RxNorm: 184545 1 Tablet(s) PO UD 07/12/2015 11/04/2015 Inactive z lauro hydrocodone 10 mg-acetaminophen 325 mg tablet RxNorm: 170924 1-2 Tablet(s) PO Q6 as needed for pain 07/10/2015 08/08/2015 Inactive (Response to an electronic controlled substance refill request - RxReferenceNumber: [id number]|1|0|1) tramadol 50 mg tablet RxNorm: 635225 1-2 Tablet(s) PO TID PRN as needed 07/04/2015 11/05/2016 Inactive ok to give 1 month mvsoiz=013 tablets hydrocodone 10 mg-acetaminophen 325 mg tablet RxNorm: 086948 1-2 Tablet(s) PO Q6 as needed for pain 06/10/2015 07/09/2015 Inactive (Response to an electronic controlled substance refill request - RxReferenceNumber: [id number]|1|0|1) cyanocobalamin (vit B-12) 1,000 mcg/mL injection solution RxNorm: 912785 Milliliter(s) Inj 06/10/2015 06/10/2015 Inactive pantoprazole 40 mg tablet,delayed release RxNorm: 683535 TABLET(S) PO TAKE 1 TABLET BY MOUTH EVERY DAY 06/10/201511/05 Inactive pantoprazole 40 mg tablet,delayed release RxNorm: 212373 Tablet(s) PO TAKE 1 TABLET BY MOUTH EVERY DAY 06/06/201511/05 Inactive tramadol 50 mg tablet RxNorm: 870602 1-2 Tablet(s) PO TID PRN as needed 05/29/2015 06/27/2015 Inactive ok to give 1 month syqyjr=952 tablets tramadol 50 mg tablet RxNorm: 096184 1-2 Tablet(s) PO Q6 as needed 05/29/2015 06/09/2015 Inactive Valium 10 mg tablet RxNorm: 474517 1 Tablet(s) QID as needed 05/08/2015 07/06/2015 Inactive (Response to an electronic controlled substance refill request - RxReferenceNumber: [id number]|1|0|1) cyclobenzaprine 10 mg tablet RxNorm: 267988 TAKE 1 TABLET BY MOUTH THREE TIMES DAILY NEEDED FOR MUSCLE SPASMS 05/08/2015 05/10/2016 Inactive Effexor XR 150 mg capsule,extended release RxNorm: 496464 1 Capsule(s) PO BID 1 CAPSULE(S) PO BID 05/08/2015 11/05/2016 Inactive TAKE 1 CAPSULE BY MOUTH TWICE DAILY hydrocodone 10 mg-acetaminophen 325 mg tablet RxNorm: 292732 1-2 Tablet(s) PO Q6 as needed for pain 05/08/2015 06/06/2015 Inactive (Response to an electronic controlled substance refill request - RxReferenceNumber: [id number]|1|0|1) metoprolol tartrate 25 mg tablet RxNorm: 267941 1/2 TABLET(S) PO BID TAKE 1/2 TABLET BY MOUTH TWICE DAILY 05/06/201507/2015 Inactive Claritin-D 12 Hour 5 mg-120 mg tablet,extended release RxNorm: 1165614 TAKE 1 TABLET BY MOUTH TWICE DAILY 04/16/201506/2016 Inactive hydrocodone 10 mg-acetaminophen 325 mg tablet RxNorm: 013942 1-2 Tablet(s) PO Q6 as needed for pain 04/15/2015 05/07/2015 Inactive (Response to an electronic controlled substance refill request - RxReferenceNumber: [id number]|1|0|1) pantoprazole 40 mg tablet,delayed release RxNorm: 198283 TABLET(S) PO TAKE 1 TABLET BY MOUTH EVERY DAY 04/08/201506/06 Inactive hydrocodone 10 mg-acetaminophen 325 mg tablet RxNorm: 944906 1 Tablet(s) PO Q4 PRN TAKE 1-2 TABLETS BY MOUTH EVERY 6 HOURS NEEDED FOR PAIN 03/14/2015 04/12/2015 Inactive (Response to an electronic controlled substance refill request - RxReferenceNumber: [id number]|1|0|1) diazepam 10 mg tablet RxNorm: 627198 1 Tablet(s) TID TAKE 1 TABLET BY MOUTH THREE TIMES DAILY NEEDED 02/08/20152016 Inactive (Response to an electronic controlled substance refill request - RxReferenceNumber: [id number]|1|0|1) Effexor XR 150 mg capsule,extended release RxNorm: 699646 1 CAPSULE(S) PO BID 02/07/2015 05/07/2015 Inactive TAKE 1 CAPSULE BY MOUTH TWICE DAILY cyclobenzaprine 10 mg tablet RxNorm: 622672 TAKE 1 TABLET BY MOUTH THREE TIMES DAILY NEEDED FOR MUSCLE SPASMS 02/07/2015 05/07/2015 Inactive pantoprazole 40 mg tablet,delayed release RxNorm: 061828 TABLET(S) PO TAKE 1 TABLET BY MOUTH EVERY DAY 02/07/201504/07 Inactive hydrocodone 10 mg-acetaminophen 325 mg tablet RxNorm: 632980 1 Tablet(s) PO Q4 PRN TAKE 1-2 TABLETS BY MOUTH EVERY 6 HOURS NEEDED FOR PAIN 01/25/2015 02/23/2015 Inactive (Response to an electronic controlled substance refill request - RxReferenceNumber: [id number]|1|0|1) Bactroban Nasal 2 % ointment RxNorm: 578465 1 Application NASAL BID 01/10/2015 01/10/2015 Inactive mupirocin 2 % topical ointment RxNorm: 650757 1 Application TOP TID 1 APPLICATION TOP PRN 01/10/2015 01/19/2015 Inactive disregard order for nasal ointment , use on left knee trazodone 100 mg tablet RxNorm: 882653 TAKE 2 TABLETS BY MOUTH EVERY NIGHT AT BEDTIME 01/08/2015 10/07/2015 Inactive Seroquel 100 mg tablet RxNorm: 462859 1 TABLET(S) PO BID 201410/04/2015 Inactive TAKE 1 TABLET BY MOUTH TWICE DAILY cyclobenzaprine 10 mg tablet RxNorm: 118447 TAKE 1 TABLET BY MOUTH THREE TIMES DAILY NEEDED FOR MUSCLE SPASMS 01/08/2015 02/06/2015 Inactive hydrocodone 10 mg-acetaminophen 325 mg tablet RxNorm: 719227 1 Tablet(s) PO Q4 PRN TAKE 1-2 TABLETS BY MOUTH EVERY 6 HOURS NEEDED FOR PAIN 12/21/2014 01/19/2015 Inactive (Response to an electronic controlled substance refill request - RxReferenceNumber: [id number]|1|0|1) pantoprazole 40 mg tablet,delayed release RxNorm: 454387 TABLET(S) PO TAKE 1 TABLET BY MOUTH EVERY DAY 12/13/201402/06 Inactive Lipitor 20 mg tablet RxNorm: 435629 1 Tablet(s) PO daily 201409/08/2015 Inactive TAKE ONE TABLET BY MOUTH EVERY NIGHT AT BEDTIME Valium 10 mg tablet RxNorm: 189621 1 Tablet(s) QID as needed 12/12/2014 02/09/2015 Inactive (Response to an electronic controlled substance refill request - RxReferenceNumber: [id number]|1|0|1) hydrocodone 10 mg-acetaminophen 325 mg tablet RxNorm: 570779 Tablet(s) TAKE 1-2 TABLETS BY MOUTH EVERY 6 HOURS NEEDED FOR PAIN 12/12/2014 12/20/2014 Inactive ( Response to an electronic controlled substance refill request - RxReferenceNumber: [id number]|1|0|1) Lipitor 20 mg tablet RxNorm: 557318 1 Tablet(s) PO daily 201412/12/2014 Inactive TAKE ONE TABLET BY MOUTH EVERY NIGHT AT BEDTIME pantoprazole 40 mg tablet,delayed release RxNorm: 841497 TABLET(S) PO TAKE 1 TABLET BY MOUTH EVERY DAY 12/06/201411/05 Inactive Savella 100 mg tablet RxNorm: 790689 Tablet(s) PO TAKE 1 TABLET BY MOUTH DAILY 12/06/2014 07/18/2015 Inactive Lipitor 20 mg tablet RxNorm: 881656 1 Tablet(s) PO daily 201412/10/2014 Inactive TAKE ONE TABLET BY MOUTH EVERY NIGHT AT BEDTIME Valium 10 mg tablet RxNorm: 686977 TAKE 1 TABLET BY MOUTH FOUR TIMES DAILY NEEDED FOR ANXIETY 12/06/2014 12/11/2014 Inactive Valium 10 mg tablet RxNorm: 093689 1 Tablet(s) QID as needed 11/13/2014 12/11/2014 Inactive (Response to an electronic controlled substance refill request - RxReferenceNumber: [id number]|1|0|1) hydrocodone 10 mg-acetaminophen 325 mg tablet RxNorm: 581093 Tablet(s) TAKE 1-2 TABLETS BY MOUTH EVERY 6 HOURS NEEDED FOR PAIN 11/13/2014 12/11/2014 Inactive ( Response to an electronic controlled substance refill request - RxReferenceNumber: [id number]|1|0|1) hydrocodone 10 mg-acetaminophen 325 mg tablet RxNorm: 464086 Tablet(s) TAKE 1-2 TABLETS BY MOUTH EVERY 6 HOURS NEEDED FOR PAIN 11/08/2014 11/12/2014 Inactive ( Response to an electronic controlled substance refill request - RxReferenceNumber: [id number]|1|0|1) Valium 10 mg tablet RxNorm: 300075 1 Tablet(s) QID as needed 11/08/2014 11/12/2014 Inactive (Response to an electronic controlled substance refill request - RxReferenceNumber: [id number]|1|0|1) metoprolol tartrate 25 mg tablet RxNorm: 561519 1/2 TABLET(S) PO BID TAKE 1/2 TABLET BY MOUTH TWICE DAILY 11/08/2014 Inactive Valium 10 mg tablet RxNorm: 221911 TAKE 1 TABLET BY MOUTH FOUR TIMES DAILY NEEDED FOR ANXIETY 11/06/2014 12/09/2014 Inactive Vitamin D2 50,000 unit capsule RxNorm: 593399 1 Capsule(s) PO QW 10/24/2014 10/23/2014 Inactive Vitamin D2 50,000 unit capsule RxNorm: 753567 1 Capsule(s) PO QW x 8 weeks 10/24/2014 12/22/2014 Inactive Entyvio 300 mg intravenous solution RxNorm: 5519382 IV 2014 No Stop Date Active hydrocodone 10 mg-acetaminophen 325 mg tablet RxNorm: 565842 Tablet(s) TAKE 1-2 TABLETS BY MOUTH EVERY 6 HOURS NEEDED FOR PAIN 10/05/2014 11/03/2014 Inactive ( Response to an electronic controlled substance refill request - RxReferenceNumber: [id number]|1|0|1) Valium 10 mg tablet RxNorm: 004184 TAKE 1 TABLET BY MOUTH EVERY 8 HOURS NEEDED 10/05/2014 11/03/2014 Inactive (Response to an electronic controlled substance refill request - RxReferenceNumber: [id number]|1|0|1) Valium 10 mg tablet RxNorm: 602678 1 Tablet(s) PO QID as needed TAKE 1 TABLET BY MOUTH 10/05/2014 11/05/2016 Inactive (Response to an electronic controlled substance refill request - RxReferenceNumber: [id number]|1|0|1) Valium 10 mg tablet RxNorm: 140568 TAKE 1 TABLET BY MOUTH THREE TIMES DAILY NEEDED 09/04/2014 10/03/2014 Inactive (Response to an electronic controlled substance refill request - RxReferenceNumber: [id number]|1|0|1) Valium 10 mg tablet RxNorm: 657987 1 Tablet(s) PO Q8 PRN as needed 09/04/2014 11/09/2014 Inactive hydrocodone 10 mg-acetaminophen 325 mg tablet RxNorm: 567814 Tablet(s) TAKE 1-2 TABLETS BY MOUTH EVERY 6 HOURS NEEDED FOR PAIN 08/27/2014 09/25/2014 Inactive ( Response to an electronic controlled substance refill request - RxReferenceNumber: [id number]|1|0|1) Claritin-D 12 Hour 5 mg-120 mg tablet,extended release RxNorm: 5399360 1 Tablet(s ) PO BID 08/27/2014 04/16/2015 Inactive Ventolin HFA 90 mcg/actuation aerosol inhaler RxNorm: 666752 1 or 2 Puff(s) INH Q6 PRN as needed 08/09/2014 03/06/2015 Inactive pantoprazole 40 mg tablet,delayed release RxNorm: 232701 Tablet(s) PO TAKE 1 TABLET BY MOUTH EVERY DAY 08/09/201408/08 Inactive pantoprazole 40 mg tablet,delayed release RxNorm: 551144 TAKE 1 TABLET BY MOUTH EVERY DAY 08/09/2014 11/05/2016 Inactive diazepam 10 mg tablet RxNorm: 626955 TAKE 1 TABLET BY MOUTH THREE TIMES DAILY NEEDED 07/02/2014 07/31/2014 Inactive (Response to an electronic controlled substance refill request - RxReferenceNumber: [id number]|1|0|1) Valium 10 mg tablet RxNorm: 514569 1 Tablet(s) PO Q8 PRN as needed 07/02/2014 07/01/2014 Inactive hydrocodone 10 mg-acetaminophen 325 mg tablet RxNorm: 294229 Tablet(s) TAKE 1-2 TABLETS BY MOUTH EVERY 6 HOURS NEEDED FOR PAIN 06/14/2014 07/13/2014 Inactive ( Response to an electronic controlled substance refill request - RxReferenceNumber: [id number]|1|0|1) diazepam 10 mg tablet RxNorm: 773219 TAKE 1 TABLET BY MOUTH THREE TIMES DAILY NEEDED 05/29/2014 06/27/2014 Inactive (Response to an electronic controlled substance refill request - RxReferenceNumber: [id number]|1|0|1) diazepam 10 mg tablet RxNorm: 518719 Tablet(s) PO TAKE 1 TABLET BY MOUTH THREE TIMES DAILY NEEDED 05/29/20142013 Inactive (Appended: Controlled substance eRx refill - RxReferenceNumber: [id number]|1|0|1) hydrocodone 10 mg-acetaminophen 325 mg tablet RxNorm: 184712 Tablet(s) TAKE 1-2 TABLETS BY MOUTH EVERY 6 HOURS NEEDED FOR PAIN 05/17/2014 06/13/2014 Inactive ( Response to an electronic controlled substance refill request - RxReferenceNumber: [id number]|1|0|1) diazepam 10 mg tablet RxNorm: 275129 Tablet(s) PO TAKE 1 TABLET BY MOUTH THREE TIMES DAILY NEEDED 04/27/20142013 Inactive (Appended: Controlled substance eRx refill - RxReferenceNumber: [id number]|1|0|1) Anucort-HC 25 mg suppository RxNorm: 6406144 1 SUPPOSITORY RTL QDAY PRN NEEDED 04/03/2014 06/01/2014 Inactive metoprolol tartrate 25 mg tablet RxNorm: 447628 1/2 TABLET(S) PO BID TAKE 1/2 TABLET BY MOUTH TWICE DAILY 04/03/201408/2014 Inactive Anucort-HC 25 mg suppository RxNorm: 1566913 1 SUPPOSITORY RTL QDAY PRN NEEDED 04/03/2014 06/01/2014 Inactive Seroquel 100 mg tablet RxNorm: 782283 1 TABLET(S) PO BID 201312/28/2014 Inactive TAKE 1 TABLET BY MOUTH TWICE DAILY Anucort-HC 25 mg suppository RxNorm: 2566974 1 SUPPOSITORY RTL QDAY PRN NEEDED 04/03/2014 06/01/2014 Inactive hydrocodone 10 mg-acetaminophen 325 mg tablet RxNorm: 648750 Tablet(s) TAKE 1-2 TABLETS BY MOUTH EVERY 6 HOURS NEEDED FOR PAIN 03/22/2014 04/20/2014 Inactive ( Response to an electronic controlled substance refill request - RxReferenceNumber: [id number]|1|0|1) Claritin-D 12 Hour 5 mg-120 mg tablet,extended release RxNorm: 8232725 1 Tablet(s ) PO BID 03/22/2014 2014 Inactive diazepam 10 mg tablet RxNorm: 863056 TAKE 1 TABLET BY MOUTH THREE TIMES DAILY NEEDED 03/19/2014 04/16/2014 Inactive (Response to an electronic controlled substance refill request - RxReferenceNumber: [id number]|1|0|1) Lipitor 20 mg tablet RxNorm: 881481 1 TABLET(S) PO DAILY 201312/05/2014 Inactive TAKE ONE TABLET BY MOUTH EVERY NIGHT AT BEDTIME Effexor XR 150 mg capsule,extended release RxNorm: 408114 1 CAPSULE(S) PO BID 03/01/2014 01/24/2015 Inactive TAKE 1 CAPSULE BY MOUTH TWICE DAILY Claritin-D 12 Hour 5 mg-120 mg tablet,extended release RxNorm: 9063008 1 Tablet(s ) PO BID 02/19/2014 03/21/2014 Inactive cyanocobalamin (vit B-12) 1,000 mcg/mL injection solution RxNorm: 390521 Milliliter(s) Inj 02/15/2014 02/15/2014 Inactive hydrocodone 10 mg-acetaminophen 325 mg tablet RxNorm: 956118 1 Tablet(s) PO Q6 PRN TAKE ONE TO TWO TABLETS BY MOUTH EVERY 6 HOURS NEEDED FOR PAIN 01/30/2014 01/30/2014 Inactive (Response to an electronic controlled substance refill request - RxReferenceNumber: [id number]|1|0|1) hydrocodone 10 mg-acetaminophen 325 mg tablet RxNorm: 081919 TAKE 1-2 TABLETS BY MOUTH EVERY 6 HOURS NEEDED FOR PAIN 01/30/2014 02/19/2014 Inactive (Response to an electronic controlled substance refill request - RxReferenceNumber: [id number]| [id number]|1|0|1) cyanocobalamin (vit B-12) 1,000 mcg/mL injection kit RxNorm: 783467 1 Milliliter(s ) Inj 01/15/2014 01/15/2014 Inactive Kenalog 40 mg/mL suspension for injection RxNorm: 3350509 1 Milliliter(s) Inj 01/15/2014 01/15/2014 Inactive Anucort-HC 25 mg suppository RxNorm: 9045090 1 Suppository RTL QDAY PRN as needed 01/15/2014 02/13/2014 Inactive hydrocodone 10 mg-acetaminophen 325 mg tablet RxNorm: 966105 TAKE ONE TO TWO TABLETS BY MOUTH EVERY 6 HOURS NEEDED FOR PAIN 12/29/2013 01/18/2014 Inactive ( Response to an electronic controlled substance refill request - RxReferenceNumber: [id number]|1|0|1) trazodone 100 mg tablet RxNorm: 561504 TAKE 2 TABLETS BY MOUTH EVERY NIGHT AT BEDTIME 12/20/2013 12/14/2014 Inactive mupirocin 2 % topical ointment RxNorm: 919400 1 APPLICATION TOP PRN 12/14/2013 01/09/2015 Inactive cyanocobalamin (vit B-12) 1,000 mcg/mL injection solution RxNorm: 032515 1 Milliliter(s) Inj 12/04/2013 12/04/2013 Inactive Savella 100 mg tablet RxNorm: 172790 1 Tablet(s) PO daily TAKE 1 TABLET BY MOUTH DAILY 11/28/2013 11/05/2016 Inactive Savella 100 mg tablet RxNorm: 358035 Tablet(s) PO TAKE 1 TABLET BY MOUTH DAILY 10/27/2013 11/27/2013 Inactive mupirocin 2 % topical ointment RxNorm: 789516 1 Application TOP PRN 10/17/2013 No Stop Date Active trazodone 100 mg tablet RxNorm: 313968 Tablet(s) PO TAKE 2 TABLETS BY MOUTH EVERY NIGHT AT BEDTIME 09/26/2013 11/05/2016 Inactive cyclobenzaprine 10 mg tablet RxNorm: 533457 Tablet(s) PO TAKE ONE TABLET BY MOUTH THREE TIMES DAILY 09/26/2013 01/07/2015 Inactive diazepam 10 mg tablet RxNorm: 087975 Tablet(s) PO TAKE 1 TABLET BY MOUTH THREE TIMES DAILY NEEDED 08/15/20132013 Inactive (Appended: Controlled substance eRx refill - RxReferenceNumber: [id number]|1|0|1) diazepam 10 mg tablet RxNorm: 685529 1 Tablet(s) PO TID PRN TAKE 1 TABLET BY MOUTH THREE TIMES DAILY NEEDED 08/15/2013 Inactive (Appended: Controlled substance eRx refill - RxReferenceNumber: [id number]|1|0|1) Vitamin B-12 1,000 mcg/mL injection solution RxNorm: 849702 Milliliter(s) Inj 07/24/2013 07/24/2013 Inactive pantoprazole 40 mg tablet,delayed release RxNorm: 928417 Tablet(s) PO TAKE 1 TABLET BY MOUTH EVERY DAY 07/20/201308/08 Inactive hydrocodone 10 mg-acetaminophen 325 mg tablet RxNorm: 175795 1 or 2 Tablet(s) PO Q6 PRN limit 6 per day 06/26/20132013 Inactive (Appended: Controlled substance eRx refill - RxReferenceNumber: [id number]|1|0|1) trazodone 100 mg tablet RxNorm: 840193 Tablet(s) PO TAKE 2 TABLETS BY MOUTH EVERY NIGHT AT BEDTIME 06/26/2013 11/05/2016 Inactive pantoprazole 40 mg tablet,delayed release RxNorm: 906411 Tablet(s) PO TAKE 1 TABLET BY MOUTH EVERY DAY 06/20/201306/05 Inactive prednisone 10 mg tablets in a dose pack RxNorm: 155738 Tablet(s) PO 6-5-4-3-2-1 06/13/2013 06/12/2013 Inactive prednisone 10 mg tablets in a dose pack RxNorm: 005022 Tablet(s) PO UD 6-5-4-3-2- 1 06/13/2013 06/18/2013 Inactive Silvadene 1 % topical cream RxNorm: 961575 1 TOP daily apply thin layer to left knee daily 06/12/2013 06/18/2013 Inactive metoprolol tartrate 25 mg tablet RxNorm: 194883 1/2 Tablet(s) PO BID TAKE 1/2 TABLET BY MOUTH TWICE DAILY 05/19/2013 Inactive Lipitor 20 mg tablet RxNorm: 344051 1 Tablet(s) PO daily 201203/11/2014 Inactive TAKE ONE TABLET BY MOUTH EVERY NIGHT AT BEDTIME Vitamin B-12 1,000 mcg/mL injection solution RxNorm: 481514 1 Milliliter(s) Inj 05/10/2013 05/10/2013 Inactive hydrocodone 10 mg-acetaminophen 325 mg tablet RxNorm: 156894 1 or 2 Tablet(s) PO Q6 PRN limit 6 per day 03/16/2013 No Stop Date Active (Appended: Controlled substance eRx refill - RxReferenceNumber: [id number]|1|0|1) Seroquel 100 mg tablet RxNorm: 857770 1 Tablet(s) PO BID 201203/10/2014 Inactive TAKE 1 TABLET BY MOUTH TWICE DAILY Effexor XR 150 mg capsule,extended release RxNorm: 679263 1 Capsule(s) PO BID 03/16/2013 02/28/2014 Inactive TAKE 1 CAPSULE BY MOUTH TWICE DAILY fluconazole 150 mg tablet RxNorm: 925094 1 Tablet(s) PO daily 03/06/2013 03/12/2013 Inactive Kenalog 40 mg/mL Susp for Injection RxNorm: 1992791 Milliliter(s) Inj 03/06/2013 03/06/2013 Inactive Ventolin HFA 90 mcg/actuation Aerosol Inhaler RxNorm: 8572768 1 or 2 Puff(s) INH Q6 PRN 02/20/2013 03/16/2014 Inactive cyanocobalamin (vitamin B-12) 1,000 mcg/mL Injection RxNorm: 215694 Milliliter(s) Inj 02/20/2013 02/20/2013 Inactive Valium 10 mg tablet RxNorm: 415881 1 Tablet(s) PO Q8 PRN 01/3102/24/2014 Inactive Kenalog 40 mg/mL Susp for Injection RxNorm: 6106132 Milliliter(s) Inj 12/26/2012 12/26/2012 Inactive cyanocobalamin (vitamin B-12) 1,000 mcg/mL Injection RxNorm: 278320 Milliliter(s) Inj 12/21/2012 12/21/2012 Inactive hydrocodone 10 mg-acetaminophen 325 mg tablet RxNorm: 0209630 1 or 2 Tablet(s) PO Q6 PRN limit 6 per day 11/25/20122012 Inactive (Appended: Controlled substance eRx refill - RxReferenceNumber: [id number]|1|0|1) diazepam 10 mg tablet RxNorm: 421330 1 Tablet(s) PO TID PRN 08/15/2013 Inactive TAKE 1 TABLET BY MOUTH THREE TIMES DAILY NEEDED (Appended: Controlled substance eRx refill - RxReferenceNumber: [id number]|1|0|1) diazepam 10 mg tablet RxNorm: 687511 Tablet(s) PO TAKE 1 TABLET BY MOUTH THREE TIMES DAILY NEEDED 11/21/20122013 Inactive (Appended: Controlled substance eRx refill - RxReferenceNumber: [id number]|1|0|1) Vitamin B-12 1,000 mcg/mL Injection RxNorm: 793152 1 Milliliter(s) Inj 11/16/2012 11/16/2012 Inactive hydrocodone 10 mg-acetaminophen 325 mg tablet RxNorm: 7307856 1 or 2 Tablet(s) PO Q6 PRN limit 6 per day 10/24/20122012 Inactive (Appended: Controlled substance eRx refill - RxReferenceNumber: [id number]|1|0|1) hydrocodone 10 mg-acetaminophen 325 mg tablet RxNorm: 5565212 Tablet(s) PO limit 5x days 10/24/2012 10/23/2012 Inactive (Appended: Controlled substance eRx refill - RxReferenceNumber: [id number]|1|0|1) Savella 100 mg tablet RxNorm: 608231 Tablet(s) PO TAKE 1 TABLET BY MOUTH DAILY 10/14/2012 12/05/2014 Inactive Tubersol 5 tub. unit/0.1 mL Intradermal RxNorm: 157389 Milliliter(s) IDrm 09/26/2012 09/26/2012 Inactive hydrocodone 10 mg-acetaminophen 325 mg tablet RxNorm: 8391948 1 Tablet(s) PO Q4 PRN q 4 hr prn limit 5 per day 09/19/2012 No Stop Date Active (Appended: Controlled substance eRx refill - RxReferenceNumber: [id number]|1|0|1) hydrocodone 10 mg-acetaminophen 325 mg tablet RxNorm: 0650084 Tablet(s) PO TAKE 1 TABLET BY MOUTH FOUR TIMES DAILY 09/16/2012 10/23/2012 Inactive (Appended: Controlled substance eRx refill - RxReferenceNumber: [id number]|1|0|1) cyclobenzaprine 10 mg tablet RxNorm: 519298 Tablet(s) PO TAKE ONE TABLET BY MOUTH THREE TIMES DAILY 09/16/2012 09/25/2013 Inactive hydrocodone 10 mg-acetaminophen 325 mg tablet RxNorm: 2188307 1 Tablet(s) PO Q4 PRN q 4 hr prn limit 5 per day 09/14/2012 09/19/2012 Inactive (Appended: Controlled substance eRx refill - RxReferenceNumber: [id number]|1|0|1) cyanocobalamin (vitamin B-12) 1,000 mcg/mL Injection RxNorm: 085509 1 Milliliter(s ) Inj 09/12/2012 09/12/2012 Inactive cyclobenzaprine 10 mg tablet RxNorm: 294162 Tablet(s) PO TAKE ONE TABLET BY MOUTH THREE TIMES DAILY 09/02/2012 09/15/2012 Inactive hydrocodone 10 mg-acetaminophen 325 mg tablet RxNorm: 7032762 1 Tablet(s) PO QID TAKE 1 TABLET BY MOUTH FOUR TIMES DAILY 08/23/2012 09/13/2012 Inactive (Appended: Controlled substance eRx refill - RxReferenceNumber: [id number]|1|0|1) Kenalog 40 mg/mL Susp for Injection RxNorm: 2362799 1 Milliliter(s) Inj 08/11/2012 08/11/2012 Inactive Vitamin B-12 1,000 mcg/mL Injection RxNorm: 531728 1 Milliliter(s) Inj 08/11/2012 08/11/2012 Inactive Zithromax 250 mg tablet RxNorm: 404982 Tablet(s) PO 07/21/2012 09/14/2012 Inactive please give z lauro cefdinir 300 mg capsule RxNorm: 397795 1 Capsule(s) PO BID 07/20/2012 Inactive cefdinir 300 mg capsule RxNorm: 084744 1 Capsule(s) PO BID 07/27/2012 Inactive diazepam 10 mg tablet RxNorm: 675559 1 Tablet(s) PO TID PRN 12/201211/22/2012 Inactive TAKE 1 TABLET BY MOUTH THREE TIMES DAILY NEEDED (Appended: Controlled substance eRx refill - RxReferenceNumber: [id number]|1|0|1) Vitamin B-12 1,000 mcg/mL Injection RxNorm: 247788 1 Milliliter(s) Inj 07/13/2012 07/13/2012 Inactive pantoprazole 40 mg tablet,delayed release RxNorm: 718532 1 Tablet(s) PO daily 06/14/2012 06/13/2012 Inactive pantoprazole 40 mg tablet,delayed release RxNorm: 851444 1 Tablet(s) PO daily 06/14/2012 06/19/2013 Inactive trazodone 100 mg tablet RxNorm: 238650 Tablet(s) PO TAKE 2 TABLETS BY MOUTH EVERY NIGHT AT BEDTIME 06/06/2012 11/05/2016 Inactive hydrocodone 10 mg-acetaminophen 325 mg tablet RxNorm: 2341904 Tablet(s) PO TAKE 1 TABLET BY MOUTH FOUR TIMES DAILY 05/24/2012 08/23/2012 Inactive (Appended: Controlled substance eRx refill - RxReferenceNumber: [id number]|1|0|1) Symbicort 160 mcg-4.5 mcg/actuation HFA Aerosol Inhaler RxNorm: 1962530 1 INH daily 05/24/2012 05/23/2012 Inactive this is an increase in dosing Symbicort 160 mcg-4.5 mcg/actuation HFA Aerosol Inhaler RxNorm: 2947714 1 INH daily 05/24/2012 06/17/2013 Inactive this is an increase in dosing Ventolin HFA 90 mcg/actuation Aerosol Inhaler RxNorm: 844920 1 or 2 Puff(s) INH Q6 PRN 05/24/2012 05/23/2012 Inactive Ventolin HFA 90 mcg/actuation Aerosol Inhaler RxNorm: 772514 1 or 2 Puff(s) INH Q6 PRN 05/24/2012 02/19/2013 Inactive metoprolol tartrate 25 mg tablet RxNorm: 288080 Tablet(s) PO TAKE 1/2 TABLET BY MOUTH TWICE DAILY 05/24/2012 05/18/2013 Inactive hydrocodone-acetaminophen 10 mg-325 mg tablet RxNorm: 5085560 Tablet(s) PO TAKE 1 TABLET BY MOUTH FOUR TIMES DAILY 05/17/2012 05/17/2012 Inactive (Appended: Controlled substance eRx refill - RxReferenceNumber: [id number]|1|0|1) diazepam 10 mg tablet RxNorm: 371680 Tablet(s) PO 05/03/2012 07/13/2012 Inactive TAKE 1 TABLET BY MOUTH THREE TIMES DAILY NEEDED (Appended: Controlled substance eRx refill - RxReferenceNumber: [id number]|1|0|1) metoprolol tartrate 25 mg tablet RxNorm: 278477 Tablet(s) PO 11/05/2016 Inactive TAKE 1/2 TABLET BY MOUTH TWICE DAILY hydrocodone-acetaminophen 10 mg-325 mg tablet RxNorm: 0619654 Tablet(s) PO 04/11/2012 05/17/2012 Inactive TAKE 1 TABLET BY MOUTH FOUR TIMES DAILY (Appended: Controlled substance eRx refill - RxReferenceNumber: [id number]|1|0|1) ProAir HFA 90 mcg/actuation Aerosol Inhaler RxNorm: 290344 2 INH Q4 PRN 04/05/2012 04/29/2013 Inactive Symbicort 80 mcg-4.5 mcg/actuation HFA Aerosol Inhaler RxNorm: 6170030 2 INH BID 04/05/2012 04/04/2012 Inactive Symbicort 80 mcg-4.5 mcg/actuation HFA Aerosol Inhaler RxNorm: 8310723 2 INH BID 04/05/2012 05/23/2012 Inactive ProAir HFA 90 mcg/actuation Aerosol Inhaler RxNorm: 113877 2 INH Q4 PRN 04/05/2012 04/04/2012 Inactive diazepam 10 mg tablet RxNorm: 953980 Tablet(s) PO 03/17/2012 05/03/2012 Inactive TAKE 1 TABLET BY MOUTH THREE TIMES DAILY NEEDED (Appended: Controlled substance eRx refill - RxReferenceNumber: [id number]|1|0|1) Effexor XR 150 mg capsule,extended release RxNorm: 377672 Capsule(s) PO 03/13/2012 03/15/2013 Inactive TAKE 1 CAPSULE BY MOUTH TWICE DAILY fluconazole 150 mg tablet RxNorm: 781401 1 Tablet(s) PO daily 03/11/2012 03/17/2012 Inactive Lipitor 20 mg tablet RxNorm: 480570 Tablet(s) PO 02/25/2012 03/20/2013 Inactive TAKE ONE TABLET BY MOUTH EVERY NIGHT AT BEDTIME Seroquel 100 mg tablet RxNorm: 521939 1 Tablet(s) PO BID 201102/18/2013 Inactive TAKE 1 TABLET BY MOUTH TWICE DAILY hydrocodone-acetaminophen 10 mg-325 mg tablet RxNorm: 3529481 Tablet(s) PO 02/25/2012 04/11/2012 Inactive TAKE 1 TABLET BY MOUTH FOUR TIMES DAILY . (Appended : Controlled substance eRx refill - RxReferenceNumber: [id number]|1|0|1) Seroquel 100 mg tablet RxNorm: 023904 1 Tablet(s) PO BID 201102/24/2012 Inactive TAKE 1 TABLET BY MOUTH TWICE DAILY Nexium 40 mg capsule,delayed release RxNorm: 317909 1 Capsule(s) PO daily 02/16/2012 06/13/2012 Inactive Effexor XR 150 mg capsule,extended release RxNorm: 082321 Capsule(s) PO 01/14/2012 11/05/2016 Inactive TAKE 1 CAPSULE BY MOUTH TWICE DAILY Kenalog 40 mg/mL Susp for Injection RxNorm: 7228929 1 Milliliter(s) Inj 01/13/2012 01/13/2012 Inactive Vitamin B-12 1,000 mcg/mL Injection RxNorm: 654836 Milliliter(s) Inj 12/21/2011 12/21/2011 Inactive hydrocodone-acetaminophen 10 mg-325 mg tablet RxNorm: 8725139 Tablet(s) PO 12/15/2011 02/25/2012 Inactive TAKE 1 TABLET BY MOUTH FOUR TIMES DAILY (Appended: Controlled substance eRx refill - RxReferenceNumber: [id number]|1|0|1) diazepam 10 mg tablet RxNorm: 472710 Tablet(s) PO 12/15/2011 03/17/2012 Inactive TAKE 1 TABLET BY MOUTH THREE TIMES DAILY NEEDED (Appended: Controlled substance eRx refill - RxReferenceNumber: [id number]|1|0|1) diazepam 10 mg Tab RxNorm: 020471 1 Tablet(s) PO daily 201112/15/2011 Inactive TAKE 1 TABLET BY MOUTH THREE TIMES DAILY (Appended: Controlled substance eRx refill - RxReferenceNumber: [id number]|1|0|1) hydrocodone-acetaminophen 10 mg-325 mg Tab RxNorm: 9658798 1 Tablet(s) PO QID 12/14/2011 12/15/2011 Inactive TAKE 1 TABLET BY MOUTH FOUR TIMES DAILY (Appended: Controlled substance eRx refill - RxReferenceNumber: [id number]|1|0|1) Seroquel 100 mg tablet RxNorm: 807397 Tablet(s) PO 11/27/2011 03/15/2013 Inactive TAKE 1 TABLET BY MOUTH TWICE DAILY hydrocodone-acetaminophen 10 mg-325 mg Tab RxNorm: 1834767 1 Tablet(s) PO QID 11/27/2011 12/13/2011 Inactive TAKE 1 TABLET BY MOUTH FOUR TIMES DAILY (Appended: Controlled substance eRx refill - RxReferenceNumber: [id number]|1|0|1) Seroquel 100 mg Tab RxNorm: 010019 1 Tablet(s) PO BID 201111/26/2011 Inactive Seroquel 100 mg tablet RxNorm: 103460 Tablet(s) PO 11/27/2011 02/16/2012 Inactive TAKE 1 TABLET BY MOUTH TWICE DAILY Nexium 40 mg capsule,delayed release RxNorm: 852958 1 Capsule(s) PO daily 11/16/2011 02/15/2012 Inactive cyanocobalamin (vitamin B-12) 1,000 mcg/mL Injection RxNorm: 209139 1 Milliliter(s ) Inj 10/30/2011 10/30/2011 Inactive hydrocodone-acetaminophen 10 mg-325 mg Tab RxNorm: 6636640 1 Tablet(s) PO QID 10/13/2011 11/23/2011 Inactive TAKE 1 TABLET BY MOUTH FOUR TIMES DAILY (Appended: Controlled substance eRx refill - RxReferenceNumber: [id number]|1|0|1) Effexor XR 150 mg capsule,extended release RxNorm: 119050 1 Capsule(s) PO BID 10/12/2011 01/09/2012 Inactive Fish Oil 1,000 mg Cap RxNorm: 1 Capsule(s) PO QID 10/02/2011 No Stop Date Active Vitamin B-12 1,000 mcg/mL Injection RxNorm: 838630 Milliliter(s) Inj 10/02/2011 10/02/2011 Inactive Kenalog 40 mg/mL Susp for Injection RxNorm: 1724115 Milliliter(s) Inj 10/02/2011 10/02/2011 Inactive diazepam 10 mg Tab RxNorm: 308270 1 Tablet(s) PO daily 201112/13/2011 Inactive TAKE 1 TABLET BY MOUTH THREE TIMES DAILY (Appended: Controlled substance eRx refill - RxReferenceNumber: [id number]|1|0|1) Vitamin B-12 1,000 mcg/mL Injection RxNorm: 162248 Milliliter(s) Inj 09/01/2011 09/01/2011 Inactive hydrocodone-acetaminophen 10 mg-325 mg Tab RxNorm: 4237437 1 Tablet(s) PO QID 08/25/2011 10/05/2011 Inactive TAKE 1 TABLET BY MOUTH FOUR TIMES DAILY (Appended: Controlled substance eRx refill - RxReferenceNumber: [id number]|1|0|1) diazepam 10 mg Tab RxNorm: 033907 Tablet(s) PO 08/10/2011 No Stop Date Active TAKE 1 TABLET BY MOUTH THREE TIMES DAILY (Appended: Controlled substance eRx refill - RxReferenceNumber: [id number]|1|0|1) Vitamin B-12 1,000 mcg/mL Injection RxNorm: 833875 Milliliter(s) Inj 08/03/2011 08/03/2011 Inactive fluticasone 50 mcg/actuation [place], Susp RxNorm: 3537673 2 [place] NASAL BID 07/27/2011 08/19/2012 Inactive hydrocodone-acetaminophen 10 mg-325 mg Tab RxNorm: 3240378 Tablet(s) PO 07/09/2011 08/24/2011 Inactive TAKE 1 TABLET BY MOUTH FOUR TIMES DAILY (Appended: Controlled substance eRx refill - RxReferenceNumber: [id number]|1|0|1) diazepam 10 mg Tab RxNorm: 820251 Tablet(s) PO 07/09/2011 08/09/2011 Inactive TAKE 1 TABLET BY MOUTH THREE TIMES DAILY (Appended: Controlled substance eRx refill - RxReferenceNumber: [id number]|1|0|1) diazepam 10 mg Tab RxNorm: 801956 Tablet(s) PO 07/08/2011 07/08/2011 Inactive TAKE 1 TABLET BY MOUTH THREE TIMES DAILY (Appended: Controlled substance eRx refill - RxReferenceNumber: [id number]|1|0|1) hydrocodone-acetaminophen 10 mg-325 mg Tab RxNorm: 1005859 Tablet(s) PO 07/08/2011 07/08/2011 Inactive TAKE 1 TABLET BY MOUTH FOUR TIMES DAILY (Appended: Controlled substance eRx refill - RxReferenceNumber: [id number]|1|0|1) cyclobenzaprine 10 mg tablet RxNorm: 647902 Tablet(s) PO 201109/01/2012 Inactive TAKE ONE TABLET BY MOUTH THREE TIMES DAILY Lipitor 40 mg Tab RxNorm: 410369 1 Tablet(s) PO daily 201106/16/2011 Inactive Lipitor 40 mg Tab RxNorm: 064428 1 Tablet(s) PO daily 201106/10/2012 Inactive trazodone 100 mg tablet RxNorm: 065641 Tablet(s) PO 06/02/2011 06/05/2012 Inactive TAKE 2 TABLETS BY MOUTH EVERY NIGHT AT BEDTIME diazepam 10 mg Tab RxNorm: 034010 Tablet(s) PO 05/28/2011 05/29/2011 Inactive TAKE 1 TABLET BY MOUTH THREE TIMES DAILY (Appended: Controlled substance eRx refill - RxReferenceNumber: [id number]|1|0|1) diazepam 10 mg Tab RxNorm: 002725 Tablet(s) PO 05/28/2011 07/08/2011 Inactive TAKE 1 TABLET BY MOUTH THREE TIMES DAILY (Appended: Controlled substance eRx refill - RxReferenceNumber: [id number]|1|0|1) hydrocodone-acetaminophen 10 mg-325 mg Tab RxNorm: 9859599 1 Tablet(s) PO QID 05/26/2011 07/08/2011 Inactive metoprolol tartrate 25 mg tablet RxNorm: 336315 Tablet(s) PO 04/10/2012 Inactive TAKE 1/2 TABLET BY MOUTH TWICE DAILY Savella 100 mg tablet RxNorm: 626665 Tablet(s) PO 05/14/2011 10/13/2012 Inactive TAKE 1 TABLET BY MOUTH DAILY Influenza Virus Vaccine 0.5 mL RxNorm: IM 02/23/2011 02/23/2011 Inactive B12 1000 mcg RxNorm: IM 02/23/20112010 Inactive hydrocodone-acetaminophen 10 mg-325 mg Tab RxNorm: 8450649 1 Tablet(s) PO QID 01/29/2011 01/28/2011 Inactive Restasis 0.05 % eye drops in a dropperette RxNorm: 358839 1 OPH BID No Start Date Active vitamin A-vit C-vit E-zinc-Se Tab RxNorm: 1 Tablet(s) PO daily No Start Date Active garlic extract Oral RxNorm: Oral No Start Date Active Acidophilus Tab RxNorm : 2 Tablet(s) PO QHS No Start Date Active Cranberry Concentrate Cap RxNorm: 1 Capsule(s) PO BID No Start Date Active Xopenex 1.25 mg/3 mL Neb Solution RxNorm: 591553 1 Milliliter(s) INH TID No Start Date Active niacin ER 500 mg Tab RxNorm: 775466 2 Tablet(s) PO HS No Start Date Active SenokotXTRA 17.2 mg Tab RxNorm: 5087471 Oral No Start Date Active Lotemax 0.5 % eye ointment RxNorm: 9296465 1 OPH QHS No Start Date Active prednisone 10 mg tablet RxNorm: 154622 Tablet(s) PO taper. 6-5-4-3-2-1 # 21 No Start Date Active Gaviscon Extra Strength Oral RxNorm: Oral No Start Date Active melatonin 3 mg Tab RxNorm: 860167 1 Tablet(s) PO QHS No Start Date Active Voltaren 1 % Topical Gel RxNorm: 458392 4 Gram(s) TOP QID No Start Date Active Vitamin D 1,000 unit Cap RxNorm: 537292 1 Capsule(s) PO QHS No Start Date Active Mucinex DM 30 mg-600 mg 12 hr Tab RxNorm: 7032922 1 Tablet(s) PO BID No Start Date Active calcium citrate 200 mg (950 mg) Tab RxNorm: 954987 1 Tablet(s) PO QID No Start Date Active valerian 530 mg Cap RxNorm: 2 Capsule(s) PO QHS No Start Date Active Anucort-HC 25 mg Suppository RxNorm: 6758047 1 Suppository RTL QDAY PRN No Start Date 01/14/2014 Inactive Nexium 40 mg Capsule, delayed release RxNorm: 873426 1 Capsule(s) PO daily No Start Date 11/15/2011 Inactive Lipitor 20 mg tablet RxNorm: 131494 1 Tablet(s) PO QHS No Start Date 02/25/2012 Inactive mupirocin 2 % topical ointment RxNorm: 859815 1 Application TOP PRN No Start Date 10/16/2013 Inactive fluconazole 150 mg tablet RxNorm: 210738 1 Tablet(s) PO daily No Start Date 03/10/2012 Inactive Fish Oil 1,000 mg Cap RxNorm: 1 Capsule(s) PO TID No Start Date 10/01/2011 Inactive hydrocodone-acetaminophen 10 mg-325 mg Tab RxNorm: 3669964 1 Tablet(s) PO QID No Start Date 05/25/2011 Inactive Zithromax 250 mg tablet RxNorm: 875830 Tablet(s) PO No Start Date 07/20/2012 Inactive please give z lauro fluticasone 50 mcg/actuation Nasal [place], Susp RxNorm: 6698165 2 Forks NASAL BID No Start Date 07/26/2011 Inactive Seroquel 100 mg Tab RxNorm: 923739 1 Tablet(s) PO BID No Start Date 11/26/2011 Inactive nystatin 100,000 unit/gram topical powder RxNorm: 285628 1 Application TOP QID until healed No Start Date 10/26/2016 Inactive Savella 100 mg Tab RxNorm: 637100 1 Tablet(s) PO daily No Start Date 05/13/2011 Inactive cyclobenzaprine 10 mg Tab RxNorm: 735473 1 Tablet(s) PO TID No Start Date 07/05/2011 Inactive metoprolol tartrate 25 mg Tab RxNorm: 877162 1/2 Tablet(s) PO BID No Start Date 05/25/2011 Inactive trazodone 100 mg Tab RxNorm: 013728 2 Tablet(s) PO QHS No Start Date 06/01/2011 Inactive Zithromax Z-Lauro 250 mg tablet RxNorm: 795188 1 Tablet(s) PO UD No Start Date 07/11/2015 Inactive z lauro Effexor XR 150 mg 24 hr Cap RxNorm: 165192 1 Capsule(s) PO BID No Start Date 10/11/2011 Inactive diazepam 10 mg Tab RxNorm: 664665 1 Tablet(s) PO TID No Start Date 05/28/2011 Inactive tramadol 50 mg tablet RxNorm: 993452 1-2 Tablet(s) PO Q6 as needed No Start Date 05/28/2015 Inactive Medication Administered Medication Codes Instructions Start Date Status cyanocobalamin (vit B-12) 1,000 mcg/mL injection solution RxNorm: 785668 1Milliliter 07/06/2017 No longer Active cyanocobalamin (vit B-12) 1,000 mcg/mL injection solution RxNorm: 039544 1Milliliter 04/27/2017 No longer Active cyanocobalamin (vit B-12) 1,000 mcg/mL injection solution RxNorm: 761705 1Milliliter 11/17/2016 No longer Active cyanocobalamin (vit B-12) 1,000 mcg/mL injection solution RxNorm: 906441 1Milliliter 10/12/2016 No longer Active cyanocobalamin (vit B-12) 1,000 mcg/mL injection solution RxNorm: 086154 1Milliliter 09/11/2016 No longer Active cyanocobalamin (vit B-12) 1,000 mcg/mL injection solution RxNorm: 028040 Milliliter 07/03/2016 No longer Active cyanocobalamin (vit B-12) 1,000 mcg/mL injection solution RxNorm: 447598 1Milliliter 04/20/2016 No longer Active cyanocobalamin (vit B-12) 1,000 mcg/mL injection solution RxNorm: 679518 Milliliter 02/13/2016 No longer Active cyanocobalamin (vit B-12) 1,000 mcg/mL injection solution RxNorm: 533322 1Milliliter 12/02/2015 No longer Active cyanocobalamin (vit B-12) 1,000 mcg/mL injection solution RxNorm: 968119 1Milliliter 10/29/2015 No longer Active cyanocobalamin (vit B-12) 1,000 mcg/mL injection solution RxNorm: 221853 Milliliter 06/10/2015 No longer Active cyanocobalamin (vit B-12) 1,000 mcg/mL injection solution RxNorm: 355715 Milliliter 02/15/2014 No longer Active cyanocobalamin (vit B-12) 1,000 mcg/mL injection kit RxNorm : 734867 1Milliliter 01/15/2014 No longer Active Kenalog 40 mg/mL suspension for injection RxNorm: 7001502 1Milliliter 01/15/2014 No longer Active cyanocobalamin (vit B-12) 1,000 mcg/mL injection solution RxNorm: 577562 1Milliliter 12/04/2013 No longer Active Vitamin B-12 1,000 mcg/mL injection solution RxNorm: 953888 Milliliter 07/24/2013 No longer Active Vitamin B-12 1,000 mcg/mL injection solution RxNorm: 290718 1Milliliter 05/10/2013 No longer Active Kenalog 40 mg/mL Susp for Injection RxNorm: 0203980 Milliliter 03/06/2013 No longer Active cyanocobalamin (vitamin B-12) 1,000 mcg/mL Injection RxNorm : 088596 Milliliter 02/20/2013 No longer Active Kenalog 40 mg/mL Susp for Injection RxNorm: 2344642 Milliliter 12/26/2012 No longer Active cyanocobalamin (vitamin B-12) 1,000 mcg/mL Injection RxNorm : 123541 Milliliter 12/21/2012 No longer Active Vitamin B-12 1,000 mcg/mL Injection RxNorm: 031396 1Milliliter 11/16/2012 No longer Active Tubersol 5 tub. unit/0.1 mL Intradermal RxNorm: 092334 Milliliter 09/26/2012 No longer Active cyanocobalamin (vitamin B-12) 1,000 mcg/mL Injection RxNorm : 969272 1Milliliter 09/12/2012 No longer Active Kenalog 40 mg/mL Susp for Injection RxNorm: 5509389 1Milliliter 08/11/2012 No longer Active Vitamin B-12 1,000 mcg/mL Injection RxNorm: 580904 1Milliliter 08/11/2012 No longer Active Vitamin B-12 1,000 mcg/mL Injection RxNorm: 105193 1Milliliter 07/13/2012 No longer Active Kenalog 40 mg/mL Susp for Injection RxNorm: 8899279 1Milliliter 01/13/2012 No longer Active Vitamin B-12 1,000 mcg/mL Injection RxNorm: 018987 Milliliter 12/21/2011 No longer Active cyanocobalamin (vitamin B-12) 1,000 mcg/mL Injection RxNorm : 411554 1Milliliter 10/30/2011 No longer Active Kenalog 40 mg/mL Susp for Injection RxNorm: 9261729 Milliliter 10/02/2011 No longer Active Vitamin B-12 1,000 mcg/mL Injection RxNorm: 506525 Milliliter 10/02/2011 No longer Active Vitamin B-12 1,000 mcg/mL Injection RxNorm: 133861 Milliliter 09/01/2011 No longer Active Vitamin B-12 1,000 mcg/mL Injection RxNorm: 574885 Milliliter 08/03/2011 No longer Active Influenza Virus [...] 02/23/2011 completed Assessments Condition Codes Effective Dates Essential (primary) hypertension ICD-10: I10 ICD-9: 401.1 07/06/2017 Chronic pain syndrome ICD-10: G89.4 ICD-9: 338.4 07/06/2017 Vitamin B12 deficiency anemia due to intrinsic factor deficiency ICD-10: D51.0 ICD-9: 281.0 07/06/2017 Cervicalgia ICD-10: M54.2 ICD-9: 723.1 04/27/2017 Laceration without foreign body of scalp, initial encounter ICD-10: S01.01XA ICD-9: 873.0 04/27/2017 Residual hemorrhoidal skin tags ICD-10: K64.4 ICD-9: 455.9 04/06/2017 Pain in right foot ICD-10: M79.671 ICD-9: 729.5 02/25/2017 Pain in left foot ICD-10: M79.672 ICD-9: 729.5 02/25/2017 Spinal stenosis, cervical region ICD-10: M48.02 ICD-9: 723.0 01/19/2017 Pain in right leg ICD-10: M79.604 [...] 2011 Weight gain ICD-9: 783.1 06/29/2011 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 10/2010 Reason For Visit Reason [...] injuries from a fall (hurts after sitting "[place] style" abdominal pain 02/12/2011 joint complaint 01/29/2011 Results Observation Observation Code Item Item Code Result Date Tsh Ord6 hTSH II 1.18 uIU/mL 10/12/2016 Comp Metabolic Zov015 NA 139 mEq/L 10/12/2016 Comp Metabolic Clf591 K 3.5 mEq/L 10/12/2016 Comp Metabolic Wna166 CL 102 mEq/L 10/12/2016 Comp Metabolic Eev733 CO2 25.0 mEq/L 10/12/2016 Comp Metabolic Kux608 ANION GAP 16 10/12/2016 Comp Metabolic Vrp631 GLUCOSE 84 mg/dL 10/12/2016 Comp Metabolic Ltk771 Creat 0.6 mg/dL 10/12/2016 Comp Metabolic Fjx567 eGFR 105 ml/min/1.73m2 10/12/2016 Comp Metabolic Nwg987 BUN 12 mg/dL 10/12/2016 Comp Metabolic Brq328 B/C Ratio 18.8 Ratio 10/12/2016 Comp Metabolic Rty425 CALCIUM 9.2 mg/dL 10/12/2016 Comp Metabolic Qva911 ALK PHOS 59 U/L 10/12/2016 Comp Metabolic Fsz126 AST(SGOT) 21 U/L 10/12/2016 Comp Metabolic Jyu972 ALT(SGPT) 27 U/L 10/12/2016 Comp Metabolic Den636 BILI T 0.2 mg/dL 10/12/2016 Comp Metabolic Fli000 ALBUMIN 4.4 g/dL 10/12/2016 Comp Metabolic Qby920 TPRO 6.7 g/dL 10/12/2016 Comp Metabolic Mid116 GLOB 2.3 g/dL 10/12/2016 Comp Metabolic Azx354 A/G Ratio 1.9 Ratio 10/12/2016 Comp Metabolic Wcg116 Osmo 276 mOsmo 10/12/2016 Cbc With Differential [...] 103.0 fl 10/12/2016 Cbc With Differential Ord2 [place]% 8.0 % 10/12/2016 Cbc With Differential Ord2 MCH 32.7 pg 10/12/2016 Cbc With Differential Ord2 Eos% 1.0 % 10/12/2016 Cbc With Differential Ord2 MCHC 31.7 pg 10/12/2016 Cbc With Differential Ord2 PLT 238 K/ul 10/12/2016 Cbc With Differential Ord2 Baso% 0.2 % 10/12/2016 Cbc With Differential Ord2 Neut ABS# 5.75 K/ul 10/12/2016 Cbc With Differential Ord2 RDW 13.2 % 10/12/2016 Cbc With Differential Ord2 Lymph ABS# 3.12 K/ul 10/12/2016 Cbc With Differential Ord2 [place] ABS# 0.8 K/ul 10/12/2016 Cbc With Differential Ord2 Eos ABS# 0.1 K/ul 10/12/2016 Cbc With Differential Ord2 Baso ABS# 0.0 K/ul 10/12/2016 Lipid Ord30 CHOL 194 mg/dL 10/12/2016 Lipid Ord30 HDL 76.0 mg/dl 10/12/2016 Lipid Ord30 TRIG 159 mg/dL 10/12/2016 Lipid Ord30 LDL 86 mg/dL 10/12/2016 Lipid Ord30 C/HDL 2.6 Ratio 10/12/2016 Comp Metabolic Nsu063 NA 139 mEq/L 09/11/2016 Comp Metabolic Qqg938 K 3.6 mEq/L 09/11/2016 Comp Metabolic Kxy904 CL 102 mEq/L 09/11/2016 Comp Metabolic Zia303 CO2 26.0 mEq/L 09/11/2016 Comp Metabolic Gpc688 ANION GAP 15 09/11/2016 Comp Metabolic Yex744 GLUCOSE 90 mg/dL 09/11/2016 Comp Metabolic Aou884 Creat 0.6 mg/dL 09/11/2016 Comp Metabolic Tjq049 eGFR 111 ml/min/1.73m2 09/11/2016 Comp Metabolic Jmk956 BUN 14 mg/dL 09/11/2016 Comp Metabolic Rgc662 B/C Ratio 23.0 Ratio 09/11/2016 Comp Metabolic Yqy333 CALCIUM 9.0 mg/dL 09/11/2016 Comp Metabolic Akv138 ALK PHOS 56 U/L 09/11/2016 Comp Metabolic Tez214 AST(SGOT) 21 U/L 09/11/2016 Comp Metabolic Cdv303 ALT(SGPT) 17 U/L 09/11/2016 Comp Metabolic Ccl102 BILI T 0.2 mg/dL 09/11/2016 Comp Metabolic Gsk469 ALBUMIN 4.1 g/dL 09/11/2016 Comp Metabolic Vzm151 TPRO 6.5 g/dL 09/11/2016 Comp Metabolic Xjg405 GLOB 2.4 g/dL 09/11/2016 Comp Metabolic Pcw690 A/G Ratio 1.7 Ratio 09/11/2016 Comp Metabolic Ygh775 Osmo 278 mOsmo 09/11/2016 Tsh Ord6 hTSH II 1.73 uIU/mL 09/11/2016 Cbc With Differential Ord2 WBC 11.11 K/ul 09/11/2016 Cbc With Differential Ord2 RBC 3.51 M/ul 09/11/2016 Cbc With Differential Ord2 HGB 11.6 g/dl 09/11/2016 Cbc With Differential Ord2 Neut% 59.8 % 09/11/2016 Cbc With Differential Ord2 HCT 36.3 % 09/11/2016 Cbc With Differential Ord2 MCV 103.4 fl 09/11/2016 Cbc With Differential Ord2 Lymph% 30.2 % 09/11/2016 Cbc With Differential Ord2 MCH 33.0 pg 09/11/2016 Cbc With Differential Ord2 [place]% 8.6 % 09/11/2016 Cbc With Differential Ord2 MCHC 32.0 pg 09/11/2016 Cbc With Differential Ord2 Eos% 1.3 % 09/11/2016 Cbc With Differential Ord2 Baso% 0.1 % 09/11/2016 Cbc With Differential Ord2 PLT 246 K/ul 09/11/2016 Cbc With Differential Ord2 RDW 13.3 % 09/11/2016 Cbc With Differential Ord2 Neut ABS# 6.66 K/ul 09/11/2016 Cbc With Differential Ord2 Lymph ABS# 3.35 K/ul 09/11/2016 Cbc With Differential Ord2 [place] ABS# 1.0 K/ul 09/11/2016 Cbc With Differential Ord2 Eos ABS# 0.1 K/ul 09/11/2016 Cbc With Differential Ord2 Baso ABS# 0.0 K/ul 09/11/2016 Lipid Ord30 CHOL 168 mg/dL 09/11/2016 Lipid Ord30 HDL 74.0 mg/dl 09/11/2016 Lipid Ord30 TRIG 167 mg/dL 09/11/2016 Lipid Ord30 LDL 61 mg/dL 09/11/2016 Lipid Ord30 C/HDL 2.3 Ratio 09/11/2016 B12 Tzb719 B12 474.00 pg/ml 09/11/2016 B12 Rfk669 B12 827.00 pg/ml 03/02/2016 Cbc With Differential Ord2 WBC 5.51 K/ul 02/28/2016 Cbc With Differential Ord2 RBC 3.26 M/ul 02/28/2016 Cbc With Differential Ord2 HGB 11.1 g/dl 02/28/2016 Cbc With Differential Ord2 Neut% 54.9 % 02/28/2016 Cbc With Differential Ord2 HCT 35.3 % 02/28/2016 Cbc With Differential Ord2 MCV 108.3 fl 02/28/2016 Cbc With Differential Ord2 Lymph% 37.7 % 02/28/2016 Cbc With Differential Ord2 MCH 34.0 pg 02/28/2016 Cbc With Differential Ord2 [place]% 5.4 % 02/28/2016 Cbc With Differential Ord2 Eos% 1.8 % 02/28/2016 Cbc With Differential Ord2 MCHC 31.4 pg 02/28/2016 Cbc With Differential Ord2 PLT 198 K/ul 02/28/2016 Cbc With Differential Ord2 Baso% 0.2 % 02/28/2016 Cbc With Differential Ord2 RDW 12.7 % 02/28/2016 Cbc With Differential Ord2 Neut ABS# 3.02 K/ul 02/28/2016 Cbc With Differential Ord2 Lymph ABS# 2.08 K/ul 02/28/2016 Cbc With Differential Ord2 [place] ABS# 0.3 K/ul 02/28/2016 Cbc With Differential Ord2 Eos ABS# 0.1 K/ul 02/28/2016 Cbc With Differential Ord2 Baso ABS# 0.0 K/ul 02/28/2016 Sed Rate Ord21 ESR 5 mm/hr 02/28/2016 C-Reactive Protein Qnt Crqnt CRP 0.1 mg/dl 02/28/2016 Comp Metabolic Xpw691 NA 136 mEq/L 02/28/2016 Comp Metabolic Coa807 K 4.0 mEq/L 02/28/2016 Comp Metabolic Xcq923 CL 103 mEq/L 02/28/2016 Comp Metabolic Twq654 CO2 27.0 mEq/L 02/28/2016 Comp Metabolic Ykl542 ANION GAP 10 02/28/2016 Comp Metabolic Ahe154 GLUCOSE 138 mg/dL 02/28/2016 Comp Metabolic Oqu434 Creat 0.6 mg/dL 02/28/2016 Comp Metabolic Hes141 eGFR 120 ml/min/1.73m2 02/28/2016 Comp Metabolic Hsi355 BUN 15 mg/dL 02/28/2016 Comp Metabolic Orn382 B/C Ratio 26.3 Ratio 02/28/2016 Comp Metabolic Zut484 CALCIUM 8.8 mg/dL 02/28/2016 Comp Metabolic Dwn133 ALK PHOS 58 U/L 02/28/2016 Comp Metabolic Ozs721 AST(SGOT) 21 U/L 02/28/2016 Comp Metabolic Qaa480 ALT(SGPT) 21 U/L 02/28/2016 Comp Metabolic Eht095 BILI T 0.2 mg/dL 02/28/2016 Comp Metabolic Mms313 ALBUMIN 3.8 g/dL 02/28/2016 Comp Metabolic Mhe615 TPRO 5.7 g/dL 02/28/2016 Comp Metabolic Dgf291 GLOB 1.9 g/dL 02/28/2016 Comp Metabolic Qoi045 A/G Ratio 2.0 Ratio 02/28/2016 Comp Metabolic Pkb017 Osmo 275 mOsmo 02/28/2016 Tsh Ord6 hTSH II 1.25 uIU/mL 02/28/2016 B12 Jwj577 B12 >1500.00 pg/ml 01/11/2016 Vitamin D 25 Oh Qdd0506 VITAMIN D, 25 HYDROXY 45.94 ng/mL Comp Metabolic Mjj442 NA 136 mEq/L 03/21/2015 Comp Metabolic Irc691 K 3.8 mEq/L 03/21/2015 Comp Metabolic Uiw923 CL 101 mEq/L 03/21/2015 Comp Metabolic Sxg445 CO2 31.0 mEq/L 03/21/2015 Comp Metabolic Hql849 ANION GAP 8 03/21/2015 Comp Metabolic Smr375 GLUCOSE 101 mg/dL 03/21/2015 Comp Metabolic Nze249 Creat 0.7 mg/dL 03/21/2015 Comp Metabolic Llp886 eGFR 94 ml/min/1.73m2 03/21/2015 Comp Metabolic Wbi652 BUN 13 mg/dL 03/21/2015 Comp Metabolic Nyg075 B/C Ratio 18.3 Ratio 03/21/2015 Comp Metabolic Pwr319 CALCIUM 9.3 mg/dL 03/21/2015 Comp Metabolic Szd229 ALK PHOS 58 U/L 03/21/2015 Comp Metabolic Pqn856 AST(SGOT) 18 U/L 03/21/2015 Comp Metabolic Ieh693 ALT(SGPT) 22 U/L 03/21/2015 Comp Metabolic Ieu018 BILI T 0.3 mg/dL 03/21/2015 Comp Metabolic Gwu120 ALBUMIN 4.4 g/dL 03/21/2015 Comp Metabolic Rka508 TPRO 6.7 g/dL 03/21/2015 Comp Metabolic Gia992 GLOB 2.3 g/dL 03/21/2015 Comp Metabolic Dqq559 A/G Ratio 1.9 Ratio 03/21/2015 Comp Metabolic Yqs341 Osmo 272 mOsmo 03/21/2015 %Hba1C Kvj257 % HbA1c 61056-9 5.4 % 03/21/2015 %Hba1C Env407 Gluc Ave 108 mg/dL 03/21/2015 Cbc With [...] 1.32 uIU/mL 03/21/2015 URINALYSIS NONAUTO W/O SCOPE 99111 Specific [place] 1.025 DateTime(Free Text in Aprima) URINALYSIS NONAUTO W/O SCOPE 25977 PH 5.0 DateTime(Free Text in Aprima) URINALYSIS NONAUTO W/O SCOPE 86035 GLUCOSE NEG DateTime( Free Text in Aprima) URINALYSIS NONAUTO W/O SCOPE 23348 Protein NEG DateTime( Free Text in Aprima) URINALYSIS NONAUTO W/O SCOPE 65316 Blood NEG DateTime(Free Text in Aprima) URINALYSIS NONAUTO W/O SCOPE 03800 Bilirubin NEG DateTime(Free Text in Aprima) URINALYSIS NONAUTO W/O SCOPE 64311 Ketones NEG DateTime( Free Text in Aprima) URINALYSIS NONAUTO W/O SCOPE 50283 Urobilinogen NEG DateTime(Free Text in Apr) URINALYSIS NONAUTO W/O SCOPE 25152 Nitrite NEG DateTime( Free Text in Aprima) URINALYSIS NONAUTO W/O SCOPE 45173 Leukocytes NEG DateTime(Free Text in Aprima) Review of Systems System Result Effective Dates Constitutional recent illness 07/06/2017 Constitutional No anorexia 07/06/2017 Constitutional No night sweats 2017 Constitutional No chills 07/06/2017 Constitutional No diaphoresis 07/06/2017 Constitutional fatigue 07/06/2017 Constitutional No fever 07/06/2017 Constitutional No insomnia 07/06/2017 Constitutional malaise 07/06/2017 Eyes No eye discharge 07/06/2017 Eyes No eye erythema 07/06/2017 Ears/Nose/Throat/Neck No dizziness 2017 Cardiovascular No chest pain/pressure Respiratory No cough 07/06/2017 Gastrointestinal constipation 07/06/2017 Musculoskeletal back pain 07/06/2017 Musculoskeletal bone pain 07/06/2017 Musculoskeletal joint complaint 2017 Musculoskeletal neck pain 07/06/2017 Dermatologic No rash 07/06/2017 Neurologic No alteration of consciousness 07/06/2017 Psychiatric anxiety 07/06/2017 Psychiatric depression 07/06/2017 Musculoskeletal stiffness 07/06/2017 Musculoskeletal arthralgia(s) 07/06/2017 Musculoskeletal arthralgia(s) 04/27/2017 Constitutional No recent illness [...] General 1994 Constitutional general appearance Development: appears stated age 0107/06/2017 None Full Exam - General 1994 Constitutional general appearance Development: well developed 07/06/2017 None Full Exam - General 1994 Constitutional general appearance Hygiene/Attention to Grooming: good hygiene 07/06/2017 None Full Exam - General 1994 Eyes conjunctiva /eyelids Overall: conjunctiva clear 07/06/2017 None Full Exam - General 1994 Eyes conjunctiva /eyelids Overall: cornea clear 07/06/2017 None Full Exam - General 1994 Eyes conjunctiva /eyelids Overall: eyelids normal 07/06/2017 None Full Exam - General 1994 Eyes pupils and irises Overall: pupils equal, round, reactive to light and accomodation 07/06/2017 None Full Exam - General 1994 Ears/Nose/Throat lips/teeth/gingiva Overall: benign lips 07/06/2017 None Full Exam - General 1994 Ears/Nose/Throat lips/teeth/gingiva Overall: normal dentition 07/06/2017 None Full Exam - General 1994 Respiratory auscultation Overall: breath sounds clear bilaterally 07/06/2017 None Full Exam - General 1994 Respiratory respiratory effort/rhythm Overall: no retractions 07/06/2017 None Full Exam - General 1994 Respiratory respiratory effort/rhythm Overall: normal rate 07/06/2017 None Full Exam - General 1994 Cardiovascular extremities Overall: no clubbing 07/06/2017 None Full Exam - General 1994 Cardiovascular auscultation of heart Overall: normal heart sounds 07/06/2017 None Full Exam - General 1994 Cardiovascular auscultation of heart Overall: regular rate 07/06/2017 None Full Exam - General 1994 Psychiatric orientation/consciousness Overall: oriented to person, place and time 07/06/2017 None Full Exam - General 1994 Ears/Nose/Throat oral cavity/pharynx/larynx Overall: oral mucosa clear 07/06/2017 None Full Exam - General 1994 Psychiatric mood and affect Mood: depressed 07/06/2017 None Full Exam - General 1994 Psychiatric mood and affect Mood: irritable 07/06/2017 None Full Exam - General 1994 Psychiatric mood and affect Mood: angry 07/06/2017 None Full Exam - General 1994 Psychiatric mood and affect Affect: mood congruent 07/06/2017 None Full Exam - General 1994 Constitutional [...] nourished 05/16/2013 None Full Exam - General 1994 Psychiatric orientation/consciousness Overall: oriented to person, place and time 05/16/2013 None Full Exam - General 1994 Integument palpation Leg: tender 05/16/2013 ulcer left knee 2cm x 3cm x 0.5cm deep with fibrous tissue at base of wound Full Exam - General 1995 Constitutional general appearance Overall: well developed 03/06/2013 None Full Exam - General 1995 Constitutional general appearance Overall: in no acute distress 03/06/2013 None Full Exam - General 1995 Constitutional general appearance Overall: well nourished 03/06/2013 None Full Exam - General 1994 Eyes pupils and irises Overall: pupils equal, round, reactive to light and accomodation 03/06/2013 None Full Exam - General 1995 Ears/Nose/Throat oral cavity/pharynx/larynx Overall: oral mucosa clear 03/06/2013 None Full Exam - General 1995 Ears/Nose/Throat oral cavity/pharynx/larynx Overall: oropharyngeal mucosa clear 03/06/2013 None Full Exam - General 1995 Ears/Nose/Throat oral cavity/pharynx/larynx Overall: no masses 03/06/2013 [...] clear 12/26/2012 None Full Exam - General 1995 Ears/Nose/Throat [...] gait 11/21/2012 None Full Exam - General 1995 Musculoskeletal gait and station Overall: normal station 11/21/2012 None Full Exam - General 1995 Psychiatric orientation/consciousness Overall: oriented to person, place and time 11/21/2012 None Full Exam - General 1995 Psychiatric mood and affect Overall: normal mood and affect 11/21/2012 None Full Exam - General 1995 Constitutional general appearance Overall: well nourished 11/21/2012 None Full Exam - General 1995 Constitutional general appearance Overall: well developed 11/21/2012 None Full Exam - General 1995 Constitutional general appearance Overall: in no acute distress 11/21/2012 None Full Exam - General 1994 Eyes pupils and irises Overall: pupils equal, round, reactive to light and accomodation 11/21/2012 None Full Exam - General 1995 [...] time 07/21/2012 None Full Exam - General 1994 Lymphatic neck nodes Overall: anterior cervical chain benign 07/21/2012 None Full Exam - General 1994 Lymphatic neck nodes Overall: posterior cervical chain benign 07/21/2012 None Full Exam - General 1994 Abdomen abdominal exam Overall: no tenderness 07/21/2012 None Full Exam - General 1994 [...] clear 05/26/2012 None Full Exam - General 1994 Cardiovascular auscultation of heart Overall: regular rate 02/15/2012 None Full Exam - General 1994 Cardiovascular auscultation of heart Overall: normal heart sounds 02/15/2012 None Full Exam - General 1994 Cardiovascular auscultation of heart Overall: no murmurs 02/15/2012 None Full Exam - General 1995 Abdomen abdominal exam Overall: no tenderness 02/15/2012 None Full Exam - General 1995 Abdomen abdominal exam Overall: normal bowel sounds 02/15/2012 None Full Exam - General 1995 Musculoskeletal gait and station Overall: normal gait 02/15/2012 None Full Exam - General 1995 Musculoskeletal gait and station Overall: normal station 02/15/2012 None Full Exam - General 1995 Musculoskeletal head and neck Overall: head atraumatic 02/15/2012 None Full Exam - General 1995 [...] rate 02/15/2012 None Full Exam - General 1994 Constitutional general appearance Overall: well nourished 01/13/2012 None Full Exam - General 1995 Constitutional general appearance Overall: well developed 01/13/2012 None Full Exam - General 1995 Constitutional general appearance Overall: in no acute distress 01/13/2012 None Full Exam - General 1995 Eyes pupils and irises Overall: pupils equal, round, reactive to light and accomodation 01/13/2012 None Full Exam - General 1995 Ears/Nose/Throat oral cavity/pharynx/larynx Overall: oral mucosa clear 01/13/2012 None Full Exam - General 1995 Ears/Nose/Throat oral cavity/pharynx/larynx Overall: oropharyngeal mucosa clear 01/13/2012 None Full Exam - General 1995 Ears/Nose/Throat oral cavity/pharynx/larynx Overall: no masses 01/13/2012 [...] affect 12/21/2011 None Full Exam - General 1994 [...] distress 10/02/2011 None Full Exam - General 1995 Ears/Nose/Throat oral cavity/pharynx/larynx Overall: oral mucosa clear 10/02/2011 None Full Exam - General 1995 Ears/Nose/Throat [...] tenderness 09/01/2011 None Full Exam - General 1994 Abdomen [...] nourished 09/01/2011 None Full Exam - General 1994 Constitutional general appearance Overall: well developed 09/01/2011 None Full Exam - General 1994 Constitutional general appearance Overall: in no acute distress 09/01/2011 None Full Exam - General 1995 Ears/Nose/Throat oral cavity/pharynx/larynx Overall: oral mucosa clear 09/01/2011 None Full Exam - General 1995 Ears/Nose/Throat oral cavity/pharynx/larynx Overall: oropharyngeal mucosa clear 09/01/2011 None Full Exam - General 1994 Ears/Nose/Throat oral cavity/pharynx/larynx Overall: no masses 09/01/2011 [...] retractions 08/03/2011 None Full Exam - General 1994 Respiratory respiratory effort/rhythm Overall: normal rate 08/03/2011 [...] sounds 08/03/2011 None Full Exam - General 1995 Musculoskeletal head and neck Overall: head atraumatic 08/03/2011 None Full Exam - General 1995 Musculoskeletal head and neck Overall: cervical spine benign 08/03/2011 None Full Exam - General 1995 Musculoskeletal [...] rate 06/22/2011 None Full Exam - General 1994 Cardiovascular auscultation of heart Overall: regular rate 06/22/2011 None Full Exam - General 1994 [...] atraumatic 06/22/2011 None Full Exam - General 1994 [...] affect 06/22/2011 None Full Exam - General 1994 Constitutional general appearance Overall: well nourished 06/22/2011 None Full Exam - General 1994 Constitutional general appearance Overall: well developed 06/22/2011 None Full Exam - General 1994 Constitutional general appearance Overall: in no acute distress 06/22/2011 None Full Exam - General 1994 Eyes pupils and irises Overall: pupils equal, round, reactive to light and accomodation 06/22/2011 None Full Exam - General 1995 [...] distress 06/11/2011 None Full Exam - General 1994 Eyes pupils and irises Overall: pupils equal, round, reactive to light and accomodation 06/11/2011 None Full Exam - General 1994 Cardiovascular auscultation of heart Overall: no murmurs 06/11/2011 None Full Exam - General 1994 Respiratory respiratory effort/rhythm Overall: normal rate 06/11/2011 None Full Exam - General 1994 Respiratory respiratory effort/rhythm Overall: no retractions 06/11/2011 [...] Procedure Codes Date THER/PROPH/DIAG INJ SC/IM CPT-4: 26569 07/06/2017 VITAMIN B12 INJECTION CPT-4: J3420 07/06/2017 THER/PROPH/DIAG INJ SC/IM CPT-4: 53319 04/27/2017 VITAMIN B12 INJECTION CPT-4: J3420 04/27/2017 THER/PROPH/DIAG INJ SC/IM CPT-4: 86637 11/17/2016 VITAMIN B12 INJECTION CPT-4: J3420 11/17/2016 THER/PROPH/DIAG INJ SC/IM CPT-4: 24924 10/12/2016 VITAMIN B12 INJECTION CPT-4: J3420 10/12/2016 THER/PROPH/DIAG INJ SC/IM CPT-4: 25250 09/11/2016 VITAMIN B12 INJECTION CPT-4: J3420 09/11/2016 THER/PROPH/DIAG INJ SC/IM CPT-4: 67493 07/03/2016 VITAMIN B12 INJECTION CPT-4: J3420 07/03/2016 VITAMIN B12 INJECTION CPT-4: J3420 04/20/2016 THER/PROPH/DIAG INJ SC/IM CPT-4: 75275 04/20/2016 ADMIN INFLUENZA VIRUS VAC CPT-4: G0008 03/17/2016 IIV4 FLU VACC NO PRESERV ID Formatting Model/CDA Sections, Assigned to/Kathy Lopez SNOMED CT: 26314593 CPT-4: [id number] 03/17/2016 THER/PROPH/DIAG INJ SC/IM CPT-4: 34237 02/13/2016 VITAMIN B12 INJECTION CPT-4: J3420 02/13/2016 URINALYSIS NONAUTO W/O SCOPE CPT-4: 93923 12/10/2015 THER/PROPH/DIAG INJ SC/IM CPT-4: 89618 12/02/2015 VITAMIN B12 INJECTION CPT-4: J3420 12/02/2015 PNEUMOCOCCAL VACC [address]: 24338603 CPT-4: 77476 12/02/2015 IMMUNIZATION ADMIN CPT -4: 48726 12/02/2015 THER/PROPH/DIAG INJ SC/IM CPT-4: 97958 10/29/2015 VITAMIN B12 INJECTION CPT-4: J3420 10/29/2015 THER/PROPH/DIAG INJ SC/IM CPT-4: 01730 06/10/2015 VITAMIN B12 INJECTION CPT-4: J3420 06/10/2015 THER/PROPH/DIAG INJ SC/IM CPT-4: 35365 02/15/2014 VITAMIN B12 INJECTION CPT-4: J3420 02/15/2014 TRIAMCINOLONE ACET INJ NOS CPT-4: J3301 01/15/2014 VITAMIN B12 INJECTION CPT-4: J3420 01/15/2014 THER/PROPH/DIAG INJ SC/IM CPT-4: 10766 12/04/2013 VITAMIN B12 INJECTION CPT-4: J3420 12/04/2013 THER/PROPH/DIAG INJ SC/IM CPT-4: 56489 07/24/2013 VITAMIN B12 INJECTION CPT-4: J3420 07/24/2013 PRESCRIP TRANSMIT VIA ERX SY CPT-4: G8553 06/12/2013 VITAMIN B12 INJECTION CPT-4: J3420 05/10/2013 THER/PROPH/DIAG INJ SC/IM CPT-4: 65876 05/10/2013 TRIAMCINOLONE ACET INJ NOS CPT-4: J3301 03/06/2013 PRESCRIP TRANSMIT VIA ERX SY CPT-4: G8553 03/06/2013 ADMIN INFLUENZA VIRUS VAC CPT-4: G0008 02/20/2013 FLULAVAL VACC, 3 YRS & >, IM CPT-4: Q2036 02/20/2013 THER/PROPH/DIAG INJ SC/IM CPT-4: 51668 02/20/2013 VITAMIN B12 INJECTION CPT-4: J3420 02/20/2013 THER/PROPH/DIAG INJ SC/IM CPT-4: 53443 12/26/2012 TRIAMCINOLONE ACET INJ NOS CPT-4: J3301 12/26/2012 THER/PROPH/DIAG INJ SC/IM CPT-4: 67914 12/21/2012 VITAMIN B12 INJECTION CPT-4: J3420 12/21/2012 THER/PROPH/DIAG INJ SC/IM CPT-4: 62307 11/16/2012 VITAMIN B12 INJECTION CPT-4: J3420 11/16/2012 TB INTRADERMAL TEST (includes injection fee) CPT-4: 68977 09/26/2012 THER/PROPH/DIAG INJ SC/IM CPT-4: 04710 09/12/2012 VITAMIN B12 INJECTION CPT-4: J3420 09/12/2012 TRIAMCINOLONE ACET INJ NOS CPT-4: J3301 08/11/2012 VITAMIN B12 INJECTION CPT-4: J3420 08/11/2012 THER/PROPH/DIAG INJ SC/IM CPT-4: 05021 08/11/2012 VITAMIN B12 INJECTION CPT-4: J3420 07/13/2012 THER/PROPH/DIAG INJ SC/IM CPT-4: 52706 07/13/2012 THER/PROPH/DIAG INJ SC/IM CPT-4: 70236 05/26/2012 TRIAMCINOLONE ACET INJ NOS CPT-4: J3301 05/26/2012 VITAMIN B12 INJECTION CPT-4: J3420 05/26/2012 ADMIN INFLUENZA VIRUS VAC CPT-4: G0008 03/02/2012 FLULAVAL VACC, 3 YRS & >, IM CPT-4: Q2036 03/02/2012 PRESCRIP TRANSMIT VIA ERX SY CPT-4: G8553 02/15/2012 TRIAMCINOLONE ACET INJ NOS CPT-4: J3301 01/13/2012 VITAMIN B12 INJECTION CPT-4: J3420 12/21/2011 VITAMIN B12 INJECTION CPT-4: J3420 10/30/2011 THER/PROPH/DIAG INJ SC/IM CPT-4: 87271 10/30/2011 THER/PROPH/DIAG INJ SC/IM CPT-4: 86800 10/02/2011 VITAMIN B12 INJECTION CPT-4: J3420 10/02/2011 TRIAMCINOLONE ACET INJ NOS CPT-4: J3301 10/02/2011 PRESCRIP TRANSMIT VIA ERX SY CPT-4: G8553 10/02/2011 VITAMIN B12 INJECTION CPT-4: J3420 09/01/2011 URINALYSIS NONAUTO W/O SCOPE CPT-4: 68981 08/03/2011 VITAMIN B12 INJECTION CPT-4: J3420 08/03/2011 THER/PROPH/DIAG INJ SC/IM CPT-4: 55311 08/03/2011 THER/PROPH/DIAG INJ SC/IM CPT-4: 66458 06/11/2011 VITAMIN B12 INJECTION CPT-4: J3420 06/11/2011 ROUTINE VENIPUNCTURE CPT-4: 30251 06/11/2011 THER/PROPH/DIAG INJ SC/IM CPT-4: 42086 02/23/2011 VITAMIN B12 INJECTION CPT-4: J3420 02/23/2011 ADMIN INFLUENZA VIRUS VAC CPT-4: G0008 02/23/2011 FLULAVAL VACC, 3 YRS & >, IM CPT-4: Q2036 02/23/2011 Vital Signs Date Vital 07/06/2017 Blood Pressure 1: 154/80 Code : 8480-6 Heart Rate 1: 111 bpm Height: 5'9" Respiratory Rate: 20 bpm SpO2: 98% Weight: 04/27/2017 Blood Pressure 1: 138/78 Code : 8480-6 BMI: 30.4 Code : 34914-0 Heart Rate 1 : 96 bpm Height: 5'9" SpO2: 97% Weight: 206 lbs 04/06/2017 Blood Pressure 1: 108/80 Code : 8480-6 BMI: 31.0 Code : 47065-6 Heart Rate 1 : 96 bpm Height: 5'9" SpO2: 98% Weight: 210 lbs 02/25/2017 Blood Pressure 1: 132/80 Code : 8480-6 BMI: 32.5 Code : 87644-0 Heart Rate 1 : 112 bpm Height: 5'9" SpO2: 94% Weight: 220 lbs 01/19/2017 Blood Pressure 1: 122/68 Code : 8480-6 Heart Rate 1: 100 bpm Height: 5'9" SpO2: 95% Weight: 11/17/2016 Blood Pressure 1: 132/74 Code : 8480-6 BMI: 32.2 Code : 04364-8 Heart Rate 1 : 98 bpm Height: 5'9" SpO2: 94% Weight: 218 lbs 10/12/2016 Blood Pressure 1: 130/82 Code : 8480-6 BMI: 32.2 Code : 57327-1 Heart Rate 1 : 97 bpm Height: 5'9" SpO2: 94% Weight: 218 lbs 08/18/2016 Blood Pressure 1: 132/78 Code : 8480-6 BMI: 32.0 Code : 44516-0 Heart Rate 1 : 113 bpm Height: 5'9" SpO2: 98% Weight: 217 lbs 08/07/2016 Blood Pressure 1: 126/70 Code : 8480-6 BMI: 33.1 Code : 10649-3 Heart Rate 1 : 102 bpm Height: 5'9" SpO2: 94% Weight: 224 lbs 07/31/2016 Blood Pressure 1: 134/66 Code : 8480-6 BMI: 31.7 Code : 47257-5 Heart Rate 1 : 97 bpm Height: 5'9" SpO2: 95% Temperature: 36.4 (C) / 97.6 (F) Weight: 215 lbs 07/15/2016 Blood Pressure 1: 126/62 Code : 8480-6 Heart Rate 1: 105 bpm Height: 5'9" Weight: 07/07/2016 Blood Pressure 1: 106/54 Code : 8480-6 BMI: 31.7 Code : 07614-7 Heart Rate 1 : 93 bpm Height: 5'9" SpO2: 97% Weight: 215 lbs 06/25/2016 Heart Rate 1: 99 bpm Height: 5'9" SpO2: 95% Weight: 05/07/2016 Blood Pressure 1: 124/86 Code : 8480-6 BMI: 28.5 Code : 60754-9 Heart Rate 1 : 100 bpm Height: 5'9" SpO2: 96% Weight: 193 lbs 04/20/2016 Blood Pressure 1: 120/80 Code : 8480-6 BMI: 28.5 Code : 36305-8 Heart Rate 1 : 86 bpm Height: 5'9" SpO2: 96% Weight: 193 lbs 03/17/2016 Blood Pressure 1: 120/70 Code : 8480-6 BMI: 29.1 Code : 14217-4 Heart Rate 1 : 103 bpm Height: 5'9" SpO2: 96% Weight: 197 lbs 03/05/2016 Blood Pressure 1: 124/78 Code : 8480-6 Heart Rate 1: 82 bpm Height: 5'9" SpO2: 94% Weight: 02/28/2016 Blood Pressure 1: 94/50 Code : 8480-6 Heart Rate 1: 91 bpm Height: 5'9" SpO2: 94% Weight: 02/13/2016 Blood Pressure 1: 128/86 Code : 8480-6 BMI: 28.6 Code : 03352-2 Heart Rate 1 : 100 bpm Height: 5'9" SpO2: 96% Weight: 194 lbs 08/15/2015 Blood Pressure 1: 128/68 Code : 8480-6 BMI: 27.3 Code : 64505-1 Heart Rate 1 : 72 bpm Height: 5'9" SpO2: 92% Weight: 185 lbs 07/25/2015 Blood Pressure 1: 122/76 Code : 8480-6 BMI: 27.5 Code : 13349-8 Heart Rate 1 : 70 bpm Height: 5'9" SpO2: 94% Weight: 186 lbs 06/25/2015 Blood Pressure 1: 118/54 Code : 8480-6 BMI: 26.7 Code : 18140-1 Heart Rate 1 : 98 bpm Height: 5'9" SpO2: 97% Weight: 181 lbs 06/10/2015 Blood Pressure 1: 110/68 Code : 8480-6 Heart Rate 1: 80 bpm Height: SpO2: 98% Weight: 05/08/2015 Blood Pressure 1: 120/68 Code : 8480-6 BMI: 27.5 Code : 36941-7 Heart Rate 1 : 95 bpm Height: 5'9" SpO2: 96% Weight: 186 lbs 03/26/2015 Blood Pressure 1: 120/80 Code : 8480-6 Heart Rate 1: 102 bpm Respiratory Rate: 18 bpm SpO2: 92% Weight: 186 lbs 03/15/2015 Blood Pressure 1: 122/64 Code : 8480-6 BMI: 26.6 Code : 34730-8 Heart Rate 1 : 96 bpm Height: 5'9" SpO2: 96% Weight: 180 lbs 01/10/2015 Blood Pressure 1: 120/68 Code : 8480-6 BMI: 27.5 Code : 70286-8 Heart Rate 1 : 90 bpm Height: 5'9" Weight: 186 lbs 12/21/2014 Blood Pressure 1: 118/78 Code : 8480-6 BMI: 27.2 Code : 90920-8 Heart Rate 1 : 61 bpm Height: 5'9" SpO2: 97% Weight: 184 lbs 10/05/2014 Blood Pressure 1: 118/64 Code : 8480-6 BMI: 27.0 Code : 62640-0 Heart Rate 1 : 76 bpm Height: 5'9" Weight: 183 lbs 06/14/2014 Blood Pressure 1: 120/78 Code : 8480-6 BMI: 26.6 Code : 67973-1 Heart Rate 1 : 96 bpm Height: 5'9" Weight: 180 lbs 01/19/2014 Blood Pressure 1: 128/76 Code : 8480-6 BMI: 27.3 Code : 42507-1 Heart Rate 1 : 82 bpm Height: 5'9" Weight: 185 lbs 01/15/2014 Blood Pressure 1: 110/62 Code : 8480-6 BMI: 27.9 Code : 61509-6 Heart Rate 1 : 80 bpm Height: 5'9" Weight: 189 lbs 10/20/2013 Blood Pressure 1: 112 Code : 8480-6 BMI: 30.1 Code : 89274-8 Heart Rate 1 : 76 bpm Height: [...] Code : 8480-6 BMI: 30.6 Code : 29820-2 Heart Rate 1 : 92 bpm Height: 5'9" Weight: 207 lbs 05/23/2013 Blood Pressure 1: 120/78 Code : 8480-6 Heart Rate 1: 84 bpm Weight: 05/19/2013 Blood Pressure 1: 126/78 Code : 8480-6 BMI: 30.3 Code : 94622-8 Heart Rate 1 : 88 bpm Height: 5'9" Weight: 205 lbs 05/16/2013 Blood Pressure 1: 126/66 Code : 8480-6 BMI: 30.3 Code : 14255-7 Heart Rate 1 : 84 bpm Height: 5'9" Weight: 205 lbs 03/06/2013 Blood Pressure 1: 128/76 Code : 8480-6 BMI: 30.6 Code : 85479-8 Heart Rate 1 : 88 bpm Height: 5'9" Weight: 207 lbs 12/26/2012 Blood Pressure 1: 142/70 Code : 8480-6 BMI: 29.6 Code : 37008-4 Heart Rate 1 : 100 bpm Height: 5'9" Weight: 200 lbs 8 oz 11/21/2012 Blood Pressure 1: 132/80 Code : 8480-6 BMI: 29.5 Code : 14957-8 Heart Rate 1 : 96 bpm Height: [...] Code : 8480-6 BMI: 29.2 Code : 83295-7 Heart Rate 1 : 64 bpm Height: 5'9" Respiratory Rate: 16 bpm Weight: 198 lbs 03/11/2011 Blood Pressure 1: 106/60 Code : 8480-6 BMI: 28.8 Code : 19650-5 Heart Rate 1 : 100 bpm Height: 5'9" SpO2: 97% Weight: 195 lbs 02/12/2011 Weight: 192 lbs 01/29/2011 Blood Pressure 1: 100/64 Code : 8480-6 BMI: 28.1 Code : 45759-9 Heart Rate 1 : 100 bpm Height: [...] because she complains about Tametha and neither Tambriannea nor her mom likes to have Marlene [...] Hospital Follow Up _ pain 05/16/2013 left [id number] to left knee-applying neosporin and covering with [...] 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 PATIENT, LEVEL V Diagnosis: Essential (primary) hypertension[ICD10: I10] Diagnosis: Vitamin B12 deficiency anemia due to intrinsic factor deficiency[ ICD10: D51.0] Diagnosis: Chronic pain syndrome[ICD10: G89.4] [facility] CPT-4: 35024 07/06/2017 ([id number]) 29855 EST. PATIENT, LEVEL IV Diagnosis: Cervicalgia[ICD10: M54.2] Diagnosis: Laceration without foreign body of scalp, initial encounter[ICD10: S01.01XA] Diagnosis: Vitamin B12 deficiency anemia due to intrinsic factor deficiency[ ICD10: D51.0] Valentina Thompson MD, [facility] CPT-4: 34629 04/27/2017 86736 EST. PATIENT, LEVEL II Diagnosis: Residual hemorrhoidal skin tags[ICD10: K64.4] Valentina Thompson MD, [facility] CPT-4: 28414 04/06/2017 ([id number]) 79518 EST. PATIENT, LEVEL III Diagnosis: Pain in right foot[ICD10: M79.671] Diagnosis: Pain in left foot[ICD10: M79.672] Diagnosis: Cervicalgia[ICD10: M54.2] Valentina Thompson MD, [facility] CPT-4: 15369 02/25/2017 ([id number]) 50076 EST. PATIENT, LEVEL IV Diagnosis: Essential (primary) hypertension[ICD10: I10] Diagnosis: Chronic pain syndrome[ICD10: G89.4] Diagnosis: Spinal stenosis, cervical region[ICD10: M48.02] Diagnosis: Pain in right leg[ICD10: M79.604] Valentina Thompson MD, [facility] CPT-4: 74065 01/19/2017 ([id number]) 52239 EST. PATIENT, LEVEL III Diagnosis: Pain in right foot[ICD10: M79.671] Diagnosis: Pain in left foot[ICD10: M79.672] Diagnosis: Chronic pain syndrome[ICD10: G89.4] Diagnosis: Vitamin B12 deficiency anemia, unspecified[ICD10: D51.9] Valentina Thompson MD , [facility] CPT-4: 99110 11/17/2016 ([id number]) 76820 EST. PATIENT, LEVEL IV Diagnosis: Essential (primary) hypertension[ICD10: I10] Diagnosis: Chronic pain syndrome[ICD10: G89.4] Diagnosis: Foot drop, right foot[ICD10: M21.371] Diagnosis: Foot drop, left foot[ICD10: M21.372] Diagnosis: Other abnormalities of gait and mobility[ICD10: R26.89] Diagnosis: Vitamin B12 deficiency anemia due to intrinsic factor deficiency[ ICD10: D51.0] Aicha Thompson MD, [facility] CPT-4: 91489 10/12/2016 ([id number]) 83519 EST. PATIENT, LEVEL III Diagnosis: Pain in right ankle and joints of right foot[ICD10: M25.571] Diagnosis: Superficial foreign body, right foot, initial encounter[ICD10: S90.851A] Valentina Thompson MD, [facility] CPT-4: 15046 ([id number]) 57631 EST. PATIENT, LEVEL III Diagnosis: Candidiasis of vulva and vagina[ICD10: B37.3] Diagnosis: Vitamin B12 deficiency anemia, unspecified[ICD10: D51.9] Valentina Thmopson MD , [facility] CPT-4: 41961 08/07/2016 ([id number]) 32576 EST. PATIENT, LEVEL III Diagnosis: Spinal stenosis, cervical region[ICD10: M48.02] Diagnosis: Pain in right ankle and joints of right foot[ICD10: M25.571] Diagnosis: Pain in left ankle and joints of left foot[ICD10: M25.572] Valentina Thompson MD, [facility] CPT-4: 73548 07/31/2016 31808 EST. PATIENT, LEVEL III Diagnosis: Cervicalgia[ICD10: M54.2] Diagnosis: Chronic pain syndrome[ICD10: G89.4] Beatriz Thompson MD, [facility] CPT-4: 80013 07/15/2016 ([id number]) 64536 EST. PATIENT, LEVEL III Diagnosis: Spinal stenosis, cervical region[ICD10: M48.02] Diagnosis: Low back pain[ICD10: M54.5] Valentina Thompson MD, [facility] CPT-4: 43913 07/07/2016 ([id number]) 72123 EST. PATIENT, LEVEL IV Diagnosis: Cervicalgia[ICD10: M54.2] Diagnosis: Essential (primary) hypertension[ICD10: I10] Diagnosis: Mixed hyperlipidemia[ICD10: E78.2] Aicha Thompson MD, [facility] CPT-4: 39984 06/25/2016 ([id number]) 11129 EST. PATIENT, LEVEL III Diagnosis: Cervicalgia[ICD10: M54.2] Valentina Thompson MD, [facility] CPT-4: 03537 05/07/2016 ([id number]) 32029 EST. PATIENT, LEVEL III Diagnosis: Pleurodynia[ICD10: R07.81] Diagnosis: Generalized anxiety disorder[ICD10: F41.1] Diagnosis: Vitamin B12 deficiency anemia due to intrinsic factor deficiency[ ICD10: D51.0] Diagnosis: Hypoxemia[ICD10: R09.02] Valentina Thompson MD, [facility] CPT-4: 20689 04/20/2016 ([id number]) 02075 EST. PATIENT, LEVEL III Diagnosis: Generalized anxiety disorder[ICD10: F41.1] Diagnosis: Radiculopathy, lumbar region[ICD10: M54.16] Valentina Thompson MD, [facility] CPT-4: 34893 03/17/2016 47781 EST. PATIENT, LEVEL IV Diagnosis: Chronic pain syndrome[ICD10: G89.4] Diagnosis: Radiculopathy, lumbar region[ICD10: M54.16] Diagnosis: Generalized anxiety disorder[ICD10: F41.1] Beatriz Thompson MD, [facility] CPT-4: 80194 03/05/2016 ([id number]) 18495 EST. PATIENT, LEVEL III Diagnosis: Radiculopathy, lumbar region[ICD10: M54.16] Diagnosis: Generalized anxiety disorder[ICD10: F41.1] Valentina Thompson MD, [facility] CPT-4: 07621 02/28/2016 ([id number]) 41650 EST. 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 PATIENT, LEVEL III Diagnosis: Headache[ICD10: R51] Diagnosis: Cervicalgia[ICD10: M54.2] Valentina Thompson MD, [facility] CPT-4: 31571 08/15/2015 ([id number] 12671 EST. PATIENT, LEVEL III Diagnosis: Generalized anxiety disorder[ICD10: F41.1] Diagnosis: Cervicalgia[ICD10: M54.2] Valentina Thompson MD, [facility] CPT-4: 05598 07/25/2015 ([id number]) 07219 EST. PATIENT, LEVEL IV Diagnosis: Pain in right foot[ICD10: M79.671] Diagnosis: Unspecified osteoarthritis, unspecified site[ICD10: M19.90] Diagnosis: Pain in left ankle and joints of left foot[ICD10: M25.572] Diagnosis: Pain in right ankle and joints of right foot[ICD10: M25.571] Valentina Thompson MD, [facility] CPT-4: 56994 06/25/2015 ([id number]) 75058 EST. PATIENT, LEVEL IV Diagnosis: Essential (primary) hypertension[ICD10: I10] Diagnosis: Pain in left ankle and joints of left foot[ICD10: M25.572] Diagnosis: Chronic pain syndrome[ICD10: G89.4] Diagnosis: 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 malabsorption with proteinuria[ICD10: D51.1] Valentina Thompson MD, [facility] CPT-4: 78273 06/10/2015 ([id number]) Miscellaneous no charge Diagnosis: Dysuria[ICD10: R30.0] Aicha Thompson MD, [facility] CPT-4: 53240 05/16/2015 ([id number]) 13981 EST. PATIENT, LEVEL IV Diagnosis: Essential (primary) hypertension[ICD10: I10] Diagnosis: Pain in right foot[ICD10: M79.671] Diagnosis: Pain in left foot[ICD10: M79.672] Diagnosis: Anxiety disorder, unspecified[ICD10: F41.9] Aicha Thompson MD, [facility] CPT-4: 40879 05/08/2015 ([id number]) 88190 EST. PATIENT, LEVEL III Diagnosis: Generalized anxiety disorder[ICD10: F41.1] Diagnosis: Essential (primary) hypertension[ICD10: I10] Diagnosis: Other myositis, multiple sites[ICD10: M60.89] Valentina Thompson MD, [facility] CPT-4: 37283 03/26/2015 27505 EST. PATIENT, LEVEL III Diagnosis: Chronic pain syndrome[ICD10: G89.4] Diagnosis: Unspecified osteoarthritis, unspecified site[ICD10: M19.90] Diagnosis: Pain in right foot[ICD10: M79.671] Diagnosis: Pain in left foot[ICD10: M79.672] Beatriz Thompson MD, [facility] CPT -4: 27767 03/15/2015 ([id number]) 65129 EST. PATIENT, LEVEL III Diagnosis: Abrasion of knee, left[ICD9: 916.0] Valentina Thompson MD, [facility] CPT-4: 51796 01/10/2015 ([id number]) 72725 EST. PATIENT, LEVEL IV Diagnosis: CHRONIC PAIN SYNDROME[ICD9: 338.4] Diagnosis: MYALGIA AND MYOSITIS[ICD9: 729.1] Diagnosis: OSTEOARTH NOS-UNSPEC[ICD9: 715.90] Diagnosis: DEPRESSIVE DISORDER NEC[ICD9: 311] Diagnosis: GENERALIZED ANXIETY DISEASE[ICD9: 300.02] Valentina Thompson MD, [facility] CPT-4: 48119 12/21/2014 ([id number]) 45539 EST. PATIENT, LEVEL IV Diagnosis: GENERALIZED ANXIETY DISEASE[ICD9: 300.02] Diagnosis: DEPRESSIVE DISORDER NEC[ICD9: 311] Diagnosis: ESSENTIAL HYPERTENSION[ICD9: 401.9] Valentina Thompson MD, [facility] CPT-4: 49043 10/05/2014 ([id number]) 95557 EST. PATIENT, LEVEL III Diagnosis: Knee pain, right[ICD9: 719.46] Diagnosis: CHRONIC PAIN SYNDROME[ICD9: 338.4] Diagnosis: Ankle pain[ICD9: 719.47] Aicha Thompson MD, [facility] CPT-4: 91544 06/14/2014 ([id number]) 30133 EST. PATIENT, LEVEL III Diagnosis: Constipation[ICD9: 564.00] Diagnosis: Hemorrhoids[ICD9: 455.6] Valentina Thompson MD, [facility] CPT-4: 61457 01/19/2014 ([id number]) 95268 EST. PATIENT, LEVEL III Diagnosis: Ulcer of knee[ICD9: 707.19] Diagnosis: Hemorrhoids[ICD9: 455.6] Diagnosis: B12 deficiency[ICD9: 266.2] Diagnosis: ALLERGIC RHINITIS[ICD9: 477.9] Valentina Thompson MD, [facility] CPT-4: 01476 01/15/2014 ([id number]) 92869 EST. PATIENT, LEVEL IV Diagnosis: EDEMA[ICD9: 782.3] Diagnosis: Open wound of knee[ICD9: 891.0] Diagnosis: CHRONIC PAIN SYNDROME[ICD9: 338.4] Diagnosis: ANEMIA[ICD9: 285.9] Valentina Thompson MD, [facility] CPT-4: 07827 10/20/2013 ([id number]) 36669 EST. PATIENT, LEVEL III Diagnosis: ULCER OTH PART LOW LIMB[ICD9: 707.19] Valentina Thompson MD, [facility] CPT-4: 77340 07/24/2013 ([id number]) 04496 EST. PATIENT, LEVEL III Diagnosis: ULCER OTH PART LOW LIMB[ICD9: 707.19] Valentina Thompson MD, [facility] CPT-4: 21254 06/23/2013 ([id number]) 44453 EST. PATIENT, LEVEL III Diagnosis: ULCER OTH PART LOW LIMB[ICD9: 707.19] Valentina Thompson MD, [facility] CPT-4: 07433 06/12/2013 ([id number]) Miscellaneous no charge Diagnosis: ULCER OTH PART LOW LIMB[ICD9: 707.19] Valentina Thompson MD, [facility] CPT-4: 45527 05/29/2013 ([id number]) 57317 EST. PATIENT, LEVEL III Diagnosis: ULCER OTH PART LOW LIMB[ICD9: 707.19] Valentina Thompson MD, [facility] CPT-4: 27778 05/23/2013 ([id number]) Miscellaneous no charge Diagnosis: ULCER OTH PART LOW LIMB[ICD9: 707.19] Valentina Thompson MD, [facility] CPT-4: 14028 05/19/2013 ([id number]) 88447 EST. PATIENT, LEVEL III Diagnosis: Ulcer of knee[ICD9: 707.19] Valentina Thompson MD, [facility] CPT-4: 43266 05/16/2013 ([id number]) 89785 EST. PATIENT, LEVEL III Diagnosis: ALLERGIC RHINITIS[ICD9: 477.9] Aicha Thompson MD [facility] CPT- 4: 23361 03/06/2013 ([id number]) 27733 EST. PATIENT, LEVEL IV Diagnosis: Ankle pain[ICD9: 719.47] Diagnosis: ALLERGIC RHINITIS[ICD9: 477.9] Diagnosis: ESSENTIAL HYPERTENSION[SNOMED: 28135252] Aicha Thompson MD [facility] CPT-4: 49924 12/26/2012 ([id number]) 70513 EST. PATIENT, LEVEL IV Diagnosis: ESSENTIAL HYPERTENSION[SNOMED: 74247014] Diagnosis: JOINT PAIN-L/LEG[ICD9: 719.46] Diagnosis: GENERALIZED ANXIETY DISEASE[ICD9: 300.02] Diagnosis: UNSPECIFIED ASTHMA[ICD9: 493.90] Aicha Thompson MD, [facility] CPT-4: 70230 11/21/2012 ([id number]) Miscellaneous no charge Diagnosis: Encounter for tuberculin skin test[ICD9: V74.1] Aicha Thompson MD [facility] CPT-4: 12900 09/28/2012 ([id number]) 77833 EST. PATIENT, LEVEL IV Diagnosis: FEVER NOS[ICD9: 780.60] Diagnosis: PNEUMONIA (CAP)[ICD9: 486] Aicha Thompson MD [facility] CPT- 4: 78675 07/21/2012 ([id number]) 39522 EST. PATIENT, LEVEL IV Diagnosis: JOINT PAIN-ANKLE[ICD9: 719.47] Diagnosis: MUSCLE/LIGAMENT DIS NEC[ICD9: 728.89] Diagnosis: Fibromyalgia muscle pain[ICD9: 729.1] Aicha Thompson MD, [facility] CPT-4: 93752 07/13/2012 ([id number]) 98867 EST. PATIENT, LEVEL IV Diagnosis: Right foot pain[ICD9: 729.5] Diagnosis: Plantar fasciitis[ICD9: 728.71] Diagnosis: GENERALIZED ANXIETY DISEASE[ICD9: 300.02] Diagnosis: B-COMPLEX DEFIC NEC[ICD9: 266.2] Aicha Thompson MD, [facility] CPT-4: 60574 05/26/2012 ([id number]) 22309 EST. PATIENT, LEVEL IV Diagnosis: Chest wall pain[ICD9: 786.52] Diagnosis: Esophageal reflux[ICD9: 530.81] Diagnosis: ALLERGIC RHINITIS[ICD9: 477.9] Valentina Thompson MD, [facility] CPT-4: 44536 02/15/2012 ([id number]) 83261 EST. PATIENT, LEVEL IV Diagnosis: ALLERGIC RHINITIS[ICD9: 477.9] Diagnosis: HYPERLIPIDEMIA[ICD9: 272.4] Aicha Thompson MD, [facility] CPT- 4: 92533 01/13/2012 ([id number]) 17358 EST. PATIENT, LEVEL IV Diagnosis: JOINT PAIN-L/LEG[ICD9: 719.46] Diagnosis: UNSPECIFIED ASTHMA[ICD9: 493.90] Diagnosis: Costalchondritis[ICD9: 733.6] Aicha Thompson MD, [facility] CPT- 4: 80253 12/21/2011 ([id number]) 42145 EST. PATIENT, LEVEL IV Diagnosis: Hyperlipidemia[ICD9: 272.4] Diagnosis: ALLERGIC RHINITIS[ICD9: 477.9] Diagnosis: B12 deficiency[ICD9: 266.2] Diagnosis: Hypopotassemia[ICD9: 276.8] Valentina Thompson MD, [facility] CPT-4: 18160 10/02/2011 ([id number]) 00197 EST. PATIENT, LEVEL IV Diagnosis: Pain in joint involving forearm[ICD9: 719.43] Diagnosis: Neck pain[ICD9: 723.1] Diagnosis: Fall on same level from slipping, tripping, or stumbling[ICD9: E885.9 ] Diagnosis: B12 deficiency[ICD9: 266.2] Aicha Thompson MD, [facility] CPT- 4: 71694 09/01/2011 ([id number]) 04450 EST. PATIENT, LEVEL IV Diagnosis: Vulvovaginitis[ICD9: 616.10] Diagnosis: OVERWEIGHT[ICD9: 278.02] Diagnosis: MYALGIA AND MYOSITIS[ICD9: 729.1] Aicha Thompson MD, [facility] CPT-4: 52049 08/03/2011 ([id number]) 06447 EST. PATIENT, LEVEL IV Diagnosis: MUSCLE/LIGAMENT DIS NEC[ICD9: 728.89] Diagnosis: CHRONIC PAIN SYNDROME[ICD9: 338.4] Diagnosis: Weight gain[ICD9: 783.1] [facility] CPT-4: 52718 06/29/2011 24368 EST. PATIENT, LEVEL IV Diagnosis: Wrist pain[ICD9: 719.43] Diagnosis: Knee pain, right[ICD9: 719.46] Diagnosis: Fall on same level from slipping, tripping, or stumbling[ICD9: E885.9 ] Aicha Thompson MD, [facility] CPT-4: 68375 06/22/2011 95180 EST. PATIENT, LEVEL IV Diagnosis: MUSCLE/LIGAMENT DIS NEC[ICD9: 728.89] Diagnosis: JOINT PAIN-L/LEG[ICD9: 719.46] Diagnosis: OSTEOARTH NOS-UNSPEC[ICD9: 715.90] Diagnosis: B12 deficiency[ICD9: 266.2] Aicha Thompson MD, [facility] CPT- 4: 61468 06/11/2011 10251 EST. 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 PATIENT, LEVEL IV Diagnosis: Knee pain, bilateral[ICD9: 719.46] Diagnosis: Iliotibial band syndrome[ICD9: 728.89] Diagnosis: Fibromyalgia syndrome[ICD9: 729.1] Aicha Thompson MD, [facility] CPT-4: 95662 02/12/2011 20054 EST. PATIENT, LEVEL IV Diagnosis: FALL FROM SLIPPING[ICD9: E885.9] Diagnosis: Pain in joint involving lower leg[ICD9: 719.46] Diagnosis: ESOPHAGEAL REFLUX[ICD9: 530.81] Diagnosis: ESSENTIAL HYPERTENSION[SNOMED: 93814999] [facility] CPT-4: 56202 01/29/2011 Plan of Care Planned Activity Notes Codes Status Date Visit Plan: Hypertension - well controlled - [...] medications, only uses PRN pain medications as directed , and understands the consequences of over-medication. I spent over an hour with Mary and her Mom - they report that everything they have said is correct , however Mary contradicted herself by saying that she knows she was not taken advantage of during her colonoscopy - she was just very frustrated because she thinks she should have gotten more medication by the anesthesiologist for her colonoscopy. She then reports that she knows that she was not told by me that she could not come back to the office after she hurt her ankle. She then states that she just wants me to "strike it all from her office note today and forget about what I said earlier to the nurse". We discussed that it seems improbable that all of the providers that she sees have the same problem of being mean, they won't listen, they are yelling and stomping around and nobody will listen to her or believe her. I told her that it is quite difficult to care for her because of how she drags out her stories and is tangential in her conversation causing the nursing staff and providers to spend extra long periods of time with her going over the stories over and over relating how everybody is not taking care of her how she feels like she needs to be taken care of - she is always the victim in her stories from providers to stories from her home. I advised her that I do believe some of her problem is psychiatric and that I need to talk to her psychiatric provider. I have also advised Mary that I would look over the list of the neurologists that her extrusion supervisor has recommended and we would consider a referral to a different provider. After I left the room insisting to Mary that I had spent as much time as I possibly could with her as I had other patients to provide care for, she waited by the door of the room to talk to me after I stepped out of a patient room to get an injection, she called me to her as I was going back into the other patient room and she said "I want you to know that there are just 2 things I want from you today - 1st - referral to a different neurologist , 2nd - you are the only person who I have left who may still believe in me and I don't want to loose you". I told her that we would look at a new neurologist and we will await her list of providers. 07/06/2017 Visit Plan: Hypertension - well controlled - [...] medications, only uses PRN pain medications as directed , and understands the consequences of over-medication. I spent over an hour with Mary and her Mom - they report that everything they have said is correct , however Mary contradicted herself by saying that she knows she was not taken advantage of during her colonoscopy - she was just very frustrated because she thinks she should have gotten more medication by the anesthesiologist for her colonoscopy. She then reports that she knows that she was not told by me that she could not come back to the office after she hurt her ankle. She then states that she just wants me to "strike it all from her office note today and forget about what I said earlier to the nurse". We discussed that it seems improbable that all of the providers that she sees have the same problem of being mean, they won't listen, they are yelling and stomping around and nobody will listen to her or believe her. I told her that it is quite difficult to care for her because of how she drags out her stories and is tangential in her conversation causing the nursing staff and providers to spend extra long periods of time with her going over the stories over and over relating how everybody is not taking care of her how she feels like she needs to be taken care of - she is always the victim in her stories from providers to stories from her home. I advised her that I do believe some of her problem is psychiatric and that I need to talk to her psychiatric provider. I have also advised Mary that I would look over the list of the neurologists that her extrusion supervisor has recommended and we would consider a referral to a different provider. After I left the room insisting to Mary that I had spent as much time as I possibly could with her as I had other patients to provide care for, she waited by the door of the room to talk to me after I stepped out of a patient room to get an injection, she called me to her as I was going back into the other patient room and she said "I want you to know that there are just 2 things I want from you today - 1st - referral to a different neurologist , 2nd - you are the only person who I have left who may still believe in me and I don't want to loose you". I told her that we would look at a new neurologist and we will await her list of providers. Apparently - after clinic - Mary signed a release so that I can talk to her psychiatrist - then she called back after clinic was over, left a voice mail that she retracted her release of information and would decide after she talked to her psychiatrist at her next appointment if I would be allowed to talk to the psychiatrist. 07/06/2017 [facility] [facility] 07/06/2017 Patient Education: Patient Medication Summary Completed 07/06/2017 Appointment: [facility] [place] (30 min) Complex 07/05/2017 Appointment: [phone] [place] (30 min) Complex 05/17/2017 Appointment: Beatriz Moj[facility]el[facility] [place] (30 min) Complex 05/14/2017 Visit Plan: Neck brxj-srelrco-kmswuso to continue f/u with [facility]-her symptoms have [...] of plan. 04/27/2017 Appointment: Valentina Smith WPtel: [phone] (30 min) Complex 04/27/2017 Patient Education: Patient Medication Summary Completed 04/27/2017 Patient Education: Obesity Completed 04/27/2017 Visit Plan: Hemorrhoidal skin tag-no acute inflammation today -may use hemorrhoid cream as directed as needed-call with any concerns, bleeding, etc. 04/06/2017 Appointment: Valentina Smith WPtel: [address] [place], [place] [phone] (30 min) Complex 04/06/2017 Patient Education: Patient Medication Summary Completed 04/06/2017 Patient Education: Obesity Completed 04/06/2017 Visit Plan: Bilateral foot and ankle pain-now has AFOs-we have made her several appt with podiatrists which she has not kept-recommend patient call Dr Saunders and reschedule appt with him. Neck pain-[facility] appt next week-KEEP APPOINTMENT! 02/25/2017 Appointment: Valentina Smith WPtel: [address] [place], [place] [phone] (30 min) Complex 02/25/2017 Patient Education: Patient [...] podiatry for evaluation-wants to see someone in [place] 11/17/2016 Appointment: Valentina Smith WPtel: [phone] [phone] (30 min) Complex 11/17/2016 Patient Education: Patient Medication Summary Completed 11/17/2016 Appointment: Valentina Smith WPtel: [phone] [phone] (30 min) Complex 11/16/2016 Visit Plan: [place] referral - pt to indicate when and who she would like to go to - for neck and back AFO for both legs - [facility] in [place], [place]- fax #[phone] pt has been seen by health science specialist - need brace because of bilateral [...] medication. 10/12/2016 Appointment: [phone] ([facility]) Complex 10/12/2016 Patient Education: Patient Medication Summary Completed 10/12/2016 Patient Education: Obesity Completed 10/12/2016 Appointment: Injection 09/11/2016 Patient Education: Patient Medication Summary Completed 09/11/2016 Visit Plan: Right ankle pain/instability-xray negative- will obtain MRI ankle Ulcer right foot-instructed patient on wound care and the importance of keeping wound clean-f/u in 10-14 days for re-evaluation 08/18/2016 Appointment: Valentina Smith WPtel: [phone] [place] (30 min) Complex 08/18/2016 Patient Education: Patient Medication Summary Completed 08/18/2016 Patient Education: Obesity Completed 08/18/2016 Care Plan: X-RAY EXAM NECK SPINE 2-3 VW LOINC : 83438-7 Pending 08/15/2016 Visit Plan: Vaginal yeast infection-RX for diflucan B12 deficiency-check labs 08/07/2016 Appointment: Valentina Smith WPtel: [phone] [place] (30 min) Complex 08/07/2016 Patient Education: Patient Medication Summary Completed 08/07/2016 Visit Plan: Cervical stenosis-saw Dr Ramey-Dr Ramey is going to send her to for further evaluation Bilateral ankle pain-xray ankles 07/31/2016 Appointment: Valentina Smith WPtel: [address] [place], [place] [phone] [place] (30 min) Complex 07/31/2016 Patient Education: Patient Medication Summary Completed 07/31/2016 Patient Education: Obesity Completed 07/31/2016 Visit Plan: Neck pain after fall - Will check x-ray, Pt is to follow up with Dr. Perez. Pt is to notify clinic if symptoms do not improve , if they worsen, or with any questions or concerns. 07/15/2016 Appointment: Beatriz Mojica WPtel: [facility] [place] (30 min) Complex 07/15/2016 Patient Education: [...] Injection 07/03/2016 Appointment: Valentina Smith [facility]Ptel: [phone] (30 min) Complex 07/03/2016 Patient Education: [...] PT. 05/07/2016 Appointment: Valentina Smith WPtel: [phone] [phone] (30 min) Complex 05/07/2016 Patient Education: Patient Medication Summary Completed 05/07/2016 Patient Education: Obesity Completed 05/07/2016 Care Plan: MRI NECK SPINE W/O DYE LOINC : 12251-6 Pending 05/07/2016 Visit Plan: Chronic Depression and [...] monitor symptoms 04/20/2016 Appointment: Valentina Smith WPtel: [phone] (30 min) Complex 04/20/2016 Patient Education: Patient Medication Summary Completed 04/20/2016 Appointment: Valentina Smith WPtel: [address] [place] [phone] [place] (30 min) Complex 03/19/2016 Visit Plan: Chronic [...] Dr Ibarra 03/17/2016 Appointment: Valentina Smith WPtel: [phone] (30 min) Complex 03/17/2016 Patient Education: [...] current medications. 02/28/2016 Appointment: Valentina Smith WPtel: [address] [place] [address] (15 min) Moderate 02/28/2016 Patient Education: Patient Medication Summary Completed 02/28/2016 Appointment: Valentina Smith WPtel: [address] [place] [address] (30 min) Complex 02/27/2016 Visit Plan: Hypertension [...] d level 02/13/2016 Appointment: Valentina Smith WPtel: [facility] [place] [address] (30 min) Complex 02/13/2016 Patient Education: Patient Medication Summary Completed 02/13/2016 Patient Education: Obesity Completed 02/13/2016 Care Plan: Cbc With Differential Pending 02/13/2016 Care Plan: Tsh Pending 02/13/2016 Care Plan: Lipid Pending 02/13/2016 Care Plan: Comp Metabolic patient to come fasting Pending 02/13/2016 Care Plan: Vitamin D 25 Oh Cancelled 02/13/2016 Patient Education: Patient Medication Summary Completed 02/03/2016 Care Plan: SCREENINGMAMMOGRAPHYDIGITAL LOINC : 99718-1 Pending 02/03/2016 Appointment: Injection 01/15/2016 Appointment: Lab [...] EXAM NECK SPINE 2-3 VW LOINC : 49629-7 Ordered 08/15/2015 Visit Plan: Anxiety-fairly well controlled-does [...] feet and ankle instability/pain. Refer patient to [facility] for aqua therapy. Patient verbalized understanding of [...] side effects. 05/08/2015 Appointment: [facility] Thompson [facility] (30 min) Complex 05/08/2015 Patient Education: Patient Medication Summary Completed [...] Care Plan: COMPLETE CBC AUTOMATED LOINC : 85911-5 Ordered 10/05/2014 Visit Plan: Chronic Pain Syndrome - pt has chronic pain - has been maintained on current medications, has not sought out other medications , only uses PRN pain medications as directed, and understands the consequences of over-medication. Right hip/knee/ankle pain-improving since last fall- continue physical therapy exercises-continue supportive shoes and use walker for stability 06/14/2014 Appointment: Valentina Smith WPtel: [phone] [place] Follow up 06/14/2014 Patient Education: Patient Medication [...] the instructions given to her from her chief bank examiner and she is to call him if her constipation is uncontrolled. Hemorrhoids-use suppositories as directed. 01/19/2014 Patient Education: Patient Medication Summary Completed 01/19/2014 Visit Plan: Ulcer of sgig-kelyrau-opzku instructions provided today and instructed patient to return as directed-keep wound clean and dry. Hemorrhoids-refill anusol suppositories and use as directed B12 deficiency-b12 injection today in the office Lcqmpovjx-lziojxpcbgnw-jsgabjl injection today in the office-continue oral medications [...] Anemia-check labs 10/20/2013 Appointment: Valentina Smith WPtel: [address] [place], [place] [phone] [place] Other 10/20/2013 Patient Education: Patient Medication Summary Completed 10/20/2013 Appointment: Valentina Smith WPtel: [phone] [place] Injection 08/21/2013 Appointment: Aicha Thompson WPtel: [address] [place], [place] [phone] Follow up 07/31/2013 Visit Plan: Ulcer of knee healing-silver nitrate to granulation tissue-instructed patient to monitor and call if it does not completely heal for appointment-instructed on wound care-patient and mother verbalized understanding of plan. 07/24/2013 Patient Education: Patient Medication Summary Completed 07/24/2013 Patient Education: Patient Medication Summary Completed 07/24/2013 Appointment: Valentina Smith WPtel: [address] [place], [place] [phone] Follow up 07/03/2013 Visit Plan: Ulcer-left knee-fibrous tissue removed from wound bed to reveal pink granulation tissue-wound cleansed and dressing applied. Instructed patient on wound care. Return in 10 days for follow up. 06/23/2013 Appointment: Valentina Smith WPtel: [address] [place], [place] [phone] Follow up 06/23/2013 Patient Education: Patient Medication Summary Completed 06/23/2013 Appointment: Aicha Thompson WPtel: [address] [place], [place] [phone] Follow up 06/22/2013 Appointment: Valentina Smith WPtel: [address] [place], [place] [phone] Follow up 06/22/2013 Visit Plan: Ulcer-left knee-fibrous tissue removed from wound bed to reveal pink granulation tissue-wound cleansed and dressing applied. Instructed patient on wound care. Return in 10 days for follow up. 06/12/2013 Appointment: Valentina Smith WPtel: [address] [place], [place] [phone] Follow up 06/12/2013 Patient Education: Patient Medication Summary Completed 06/12/2013 Appointment: Aicha Thompson WPtel: [address] [place], [place] [phone] Follow up 06/08/2013 Visit Plan: Ulcer left vgjd-hmjkuyoz-i/u in 10 days 05/29/2013 Appointment: Valentina Smith WPtel: [address] [place], [place] [phone] [place] [address] Follow up 05/29/2013 Patient Education: Patient Medication Summary Completed 05/29/2013 Visit Plan: Ulcer of knee-sharp debridement today in the office--wound care instructions provided for patient-patient and mother verbalized understanding of plan. Follow up next week. 05/23/2013 Appointment: Valentina Smith WPtel: [address] [place], [place] [phone] [place] [address] Follow up 05/23/2013 Patient Education: Patient Medication Summary Completed 05/23/2013 Appointment: Valentina Smith WPtel: [address] [place], [place] [phone] [place] [address] Follow up 05/22/2013 Visit Plan: Ulcer of knee-wound care instructions provided for patient-patient and mother verbalized understanding of plan. 05/19/2013 Appointment: Valentina Smith WPtel: [address] [place], [place] [phone] [place] [address] 05/19/2013 Patient Education: Patient Medication Summary Completed 05/19/2013 Visit Plan: Ulcer of knee-fibrous tissue debrided today in the office--wound care instructions provided for patient-return in 1 week for follow up. 05/16/2013 Appointment: Valentina Smith WPtel: [address] [place] [phone] [place] [address] follow up 05/16/2013 Patient Education: Patient Medication Summary Completed 05/16/2013 Appointment: Aicha Thompson WPtel: [address] [place], [place] [phone] [facility] 05/10/2013 Patient Education: Patient Medication Summary Completed [...] injection today in the office. 03/06/2013 Appointment: LuisValentina WPtel: [phone] [phone] Other 03/06/2013 Patient Education: Patient Medication Summary Completed 03/06/2013 Appointment: Aicha Thompson WPtel: [facility] Nurse Visit 02/20/2013 Patient Education: Patient Medication Summary Completed 02/20/2013 Appointment: Aicha Thompson WPtel: [facility] Follow up 01/16/2013 Visit Plan: Joint pain [...] acute concerns. 12/26/2012 Appointment: Aicha Thompson WPtel: [facility] [place] Other 12/26/2012 Patient Education: Patient Medication Summary Completed 12/26/2012 Patient Education: Hypertension Completed 12/26/2012 Appointment: [facility] Thompson [facility]: [phone] [place] Lab Draw 12/21/2012 Patient Education: Patient Medication [...] acute changes 11/21/2012 Appointment: Aicha Thompson WPtel: [facility] [place] Follow up 11/21/2012 Patient Education: Patient Medication Summary Completed 11/21/2012 Patient Education: Hypertension Completed 11/21/2012 Appointment: Aicha Thompson WPtel: [facility] [place] Injection 11/16/2012 Patient Education: Patient Medication Summary Completed 11/16/2012 Appointment: Aicha Thompson [facility]Ptel: [facility] [place] Injection 09/28/2012 Patient Education: Patient Medication Summary Completed 09/28/2012 Appointment: Aicha Thompson WPtel: [address] [place] [address] [place] Injection 09/26/2012 Patient Education: Patient Medication Summary Completed 09/26/2012 Appointment: Aicha Thompson WPtel: [address] [place] [address] [place] Injection 09/12/2012 Patient Education: Patient Medication Summary Completed 09/12/2012 Appointment: Aicha Thompson [facility]Ptel: [phone] [place] Injection 08/11/2012 Patient Education: Patient Medication [...] control and symptom management sparingly. 07/13/2012 Appointment: Aicha Thompson [facility]Ptel: [facility] [place] Other 07/13/2012 Patient Education: Patient Medication [...] in medications 05/26/2012 Appointment: Valentina Smith WPtel: [address] Other 05/26/2012 Patient Education: Patient Medication Summary Completed 05/26/2012 Appointment: Luis Valentina WPtel: [address] [place] [address] Sick 03/15/2012 Appointment: RockyAicha WPtel: [facility] [address] Injection 03/02/2012 Patient Education: Patient Medication [...] the medication. 02/15/2012 Appointment: Valentina Smith WPtel: [facility] [address] Other 02/15/2012 Patient Education: Patient Medication Summary [...] normal liver response to medications 01/13/2012 Appointment: Luis Valentina WPtel: [address] [place], [place] [phone] [place] [address] Other 01/13/2012 Patient Education: Patient Medication Summary Completed 01/13/2012 Appointment: Luis Valentina WPtel: [address] [place], [place] [phone] [place] [address] Other 01/06/2012 Visit Plan: Asthma - chest xray and symbicort sample today. Patellofemoral syndrome- recommended physical therapy. Costochondritis - recommended pt to use antiinflammatories as able for treatment of rib/sternum irritation and for pt to call if her symptoms do not improve. 12/21/2011 Appointment: Aicha Thompson WPtel: [facility] Other 12/21/2011 Patient Education: Patient Medication Summary [...] the office. 10/02/2011 Appointment: Valentina Smith WPtel: [facility] [place] [address] Other 10/02/2011 Patient Education: Patient Medication Summary Completed 10/02/2011 Visit Plan: Pain in joints-arms, elbows-recent fall- discussed natural and expected course of this diagnosis and to alert me if symptoms do not follow expected course, or if any worse. Patient verbalized understanding. Neck hmpw-ytkssyo-mimetevmq physical therapy-patient declined at this time-going to see the usability engineer this afternoon. B12 deficiency-B12 injection today in the office. 09/01/2011 Appointment: Valentina Smith WPtel: [phone] [place] Other 09/01/2011 Patient Education: Patient Medication Summary [...] management sparingly. 08/03/2011 Appointment: [facility]icha Thompson [facility]Ptel: [facility] [place] Follow up 08/03/2011 Patient Education: Patient Medication [...] HER PAIN. 06/29/2011 Appointment: Aicha Thompson WPtel: 1015 [facility] [place] Follow up 06/29/2011 Patient Education: Patient Medication Summary Completed 06/29/2011 Appointment: Aicha Thompson WPtel: [address] [place], [place] [phone] Other 06/24/2011 Visit Plan: Right knee pain, bilateral wrist pain-recent fall-discussed natural and expected course of this diagnosis and to alert me if symptoms do not follow expected course, or if any worse. Patient verbalized understanding. Recommend follow up with Ortho physician if pain persists. 06/22/2011 Appointment: Valentina Smith WPtel: [phone] [place] Other 06/22/2011 Patient Education: Patient Medication Summary Completed 06/22/2011 Visit Plan: Knee and Ankle pain and instability- recommend re-evaluation by an customer support specialist at [facility] the [address] [place] [address]. Pt has been recommended to go back to Dr. Corbin at [facility] the [address] [place] [address] as my office did not get a [...] of fibromyalgia. 06/11/2011 Appointment: Aicha Thompson WPtel: [id number] [place] Injection 06/11/2011 [id number] [facility] 06/11/2011 Patient Education: Patient Medication Summary Completed 06/11/2011 Visit Plan: Knee and Ankle pain and instability- recommend evaluation by an customer support specialist at [facility]. The pt has been previously referred to [...] physical appearance. 03/11/2011 Appointment: Aicha Thompson WPtel: [id number] Other 03/11/2011 Patient Education: Patient Medication Summary Completed 03/11/2011 Patient Education: .Amazing charts Diabetic meal planning guide Completed 03/11 Appointment: Aicha Thompson WPtel: [phone] [id number] [place] Injection 02/23/2011 Patient Education: Patient Medication Summary Completed 02/23/2011 Visit Plan: iliotibial band syndrome - continue with current treatment per usability engineer. I have recommend use of biofreeze to the right outer leg. I have given pt stretching exercises for home. Fibromyalgia - chronic - continue with exercise, heat, and prn pain medication. Knee pain - apparently resolved prior to her appointment today. No change in present management, call if pain returns. 02/12/2011 Appointment: Aicha Thompson WPtel: [phone] [id number] Other 02/12/2011 Patient Education: Patient Medication Summary [...] Medication Summary Completed 01/29/2011 Instructions Comment . iliotibial band syndrome - continue with current treatment per usability engineer. I have recommend use of biofreeze to the right outer leg. I have given pt stretching exercises for home. Fibromyalgia - chronic - continue with exercise, heat, and prn pain medication. Knee pain -apparently resolved prior to her appointment today. No change in present management, call if pain returns. . [place] referral - pt to indicate when and who she would like to go to - for neck and back AFO for both legs - [facility] in [place], [place]- fax # [phone] pt has been seen by health science specialist - need brace because of bilateral [...] and understands the consequences of over-medication. . Hemorrhoidal skin tag-no acute inflammation today -may use hemorrhoid cream as directed as needed-call with any concerns, bleeding, etc. . Ulcer left zmkv-numduomf-x/u in 10 days . Hypertension - well controlled - continue [...] today B12 injection today in the office . Chronic Depression and anxiety - the [...] in blood pressure readings at home. . Foot pain and SI joint pain - [place] - use over affected area twice daily, follow up after appointment with Dr. Guzman Chronic Pain Syndrome - pt has chronic pain - has been maintained on current medications, has not sought out other medications, only uses PRN pain medications as directed, and understands the consequences of over-medication. . Anxiety-fairly well controlled-does have added stress with family-no change in medications-call if symptoms worsen Neck pain-recommend rest, ice and anti inflammatories as directed-call if symptoms do not resolve or if any worse. Patient verbalized understanding of plan. Use suppositories every night for the next 3 nights . Constipation - uncontrolled - I have discussed with the patient the need for adequate fiber and water intake to facilitate soft, easily passed stools. The pt noted understanding of our conversation. I have also recommended that she continue to follow the instructions given to her from her chief bank examiner and she is to call him if her constipation is uncontrolled. Hemorrhoids-use suppositories as directed. Recommend anti-inflammatories as needed for pain in [...] up with Ortho physician if pain persists. . Overweight - chronic issue with this [...] for pain control and symptom management sparingly. USE BACTROBAN (MUPIROCIN) OINTMENT ON ABRASION LEFT KNEE TWICE DAILY UNTIL HEALED REFER TO PHYSICAL THERAPY FOR RIGHT KNEE AND ANKLE PAIN-STRENGTHENING IN RIGHT LEG . Abrasion of left knee-RX for bactroban twice daily-keep clean and dry and call if does not resolve. Right knee and ankle weakness/pain-recommend physical therapy for strengthening Dr Saunders -[facility] . Bilateral foot and ankle pain-now has AFOs-we have made her several appt with podiatrists which she has not kept-recommend patient call Dr Saunders and reschedule appt with him. Neck pain-[facility] appt next week-KEEP APPOINTMENT! MAKE APPOINTMENT CALLY KELLY/DR IBARRA TO FOLLOW [...] referred for PT-recommend appt with Dr Ibarra INCREASE HYDROCODONE TO 5 TABS/DAY-IF PAIN UNCONTROLLED, [...] situational exposure. No change in current medications. . Neck pain-plan to xray cervical spine-refer to ortho as appropriate-patient verbalized understanding of plan. . Cervicalgia-MRI neck without contrast for further evaluation for further evaluation of persistent neck pain despite PT. MRI RIGHT ANKLE NEOSPORIN TO SORE RIGHT FOOT . Right ankle pain/instability-xray negative-will obtain MRI ankle Ulcer right foot-instructed patient on wound care and the importance of keeping wound clean-f/u in 10-14 days for re-evaluation . Ulcer-left knee-fibrous tissue removed from wound bed to reveal pink granulation tissue-wound cleansed and dressing applied. Instructed patient on wound care. Return in 10 days for follow up. . Chronic Pain Syndrome - pt has chronic pain - has been maintained on current medications, has not sought out other medications, only uses PRN pain medications as directed, and understands the consequences of over- medication. Right hip/knee/ankle pain-improving since last fall-continue physical therapy exercises-continue supportive shoes and use walker for stability . Neck pain after fall - Will [...] will call the patient with the appt SET UP APPOINTMENT FOR AQUA THERAPY XRAY RIGHT FOOT . Right foot pain-fell on 05/23/15 and still having pain-plan to xray right foot-patient to follow up with Dr Pham as scheduled for chronic feet and ankle instability/pain. Refer patient to [facility] for aqua therapy. Patient verbalized understanding of plan. . Knee and Ankle pain and instability- recommend re- evaluation by an customer support specialist at [facility]. Pt has been recommended to go back to Dr. Corbin at [facility] as my office did not get a [...] savella for treatment of fibromyalgia. REFER TO [facility] DX BILATERAL FOOT AND ANKLE PAIN . Bilateral foot pain-foot drop-patient getting AFOs-refer to podiatry for evaluation-wants to see someone in [place] . Joint pain - again reassured Iker [...] pt is to call for acute concerns. . Hypertension - well controlled - continue [...] directed, and understands the consequences of over-medication. I spent over an hour with Mary and her Mom - they report that everything they have said is correct, however Mary contradicted herself by saying that she knows she was not taken advantage of during her colonoscopy - she was just very frustrated because she thinks she should have gotten more medication by the anesthesiologist for her colonoscopy. She then reports that she knows that she was not told by me that she could not come back to the office after she hurt her ankle. She then states that she just wants me to "strike it all from her office note today and forget about what I said earlier to the nurse". We discussed that it seems improbable that all of the providers that she sees have the same problem of being mean, they won't listen, they are yelling and stomping around and nobody will listen to her or believe her. I told her that it is quite difficult to care for her because of how she drags out her stories and is tangential in her conversation causing the nursing staff and providers to spend extra long periods of time with her going over the stories over and over relating how everybody is not taking care of her how she feels like she needs to be taken care of - she is always the victim in her stories from providers to stories from her home. I advised her that I do believe some of her problem is psychiatric and that I need to talk to her psychiatric provider. I have also advised Mary that I would look over the list of the neurologists that her extrusion supervisor has recommended and we would consider a referral to a different provider. After I left the room insisting to Mary that I had spent as much time as I possibly could with her as I had other patients to provide care for, she waited by the door of the room to talk to me after I stepped out of a patient room to get an injection, she called me to her as I was going back into the other patient room and she said "I want you to know that there are just 2 things I want from you today - 1st - referral to a different neurologist, 2nd - you are the only person who I have left who may still believe in me and I don't want to loose you". I told her that we would look at a new neurologist and we will await her list of providers. . Hypertension - well controlled - continue [...] directed, and understands the consequences of over-medication. I spent over an hour with Mary and her Mom - they report that everything they have said is correct, however Mary contradicted herself by saying that she knows she was not taken advantage of during her colonoscopy - she was just very frustrated because she thinks she should have gotten more medication by the anesthesiologist for her colonoscopy. She then reports that she knows that she was not told by me that she could not come back to the office after she hurt her ankle. She then states that she just wants me to "strike it all from her office note today and forget about what I said earlier to the nurse". We discussed that it seems improbable that all of the providers that she sees have the same problem of being mean, they won't listen, they are yelling and stomping around and nobody will listen to her or believe her. I told her that it is quite difficult to care for her because of how she drags out her stories and is tangential in her conversation causing the nursing staff and providers to spend extra long periods of time with her going over the stories over and over relating how everybody is not taking care of her how she feels like she needs to be taken care of - she is always the victim in her stories from providers to stories from her home. I advised her that I do believe some of her problem is psychiatric and that I need to talk to her psychiatric provider. I have also advised Mary that I would look over the list of the neurologists that her extrusion supervisor has recommended and we would consider a referral to a different provider. After I left the room insisting to Mary that I had spent as much time as I possibly could with her as I had other patients to provide care for, she waited by the door of the room to talk to me after I stepped out of a patient room to get an injection, she called me to her as I was going back into the other patient room and she said "I want you to know that there are just 2 things I want from you today - 1st - referral to a different neurologist, 2nd - you are the only person who I have left who may still believe in me and I don't want to loose you". I told her that we would look at a new neurologist and we will await her list of providers. Apparently - after clinic - Mary signed a release so that I can talk to her psychiatrist - then she called back after clinic was over, left a voice mail that she retracted her release of information and would decide after she talked to her psychiatrist at her next appointment if I would be allowed to talk to the psychiatrist. Recommend anti-inflammatories as needed for pain--okay to [...] if any worse. Patient verbalized understanding. Neck yfvd-futhpzc-ekheilsxt physical therapy-patient declined at this time- going to see the usability engineer this afternoon. B12 deficiency-B12 injection today in [...] today in the office. . Ulcer of hcun-qaozihp-gpqfl instructions provided today and instructed patient to return as directed-keep wound clean and dry. Hemorrhoids-refill anusol suppositories and use as directed B12 deficiency-b12 injection today in the office Oqslfifry-tpgdmbtvjhkl-epdrprt injection today in the office-continue oral medications [...] for acute changes B12 injection . Neck rxgx-vlquuwr-krijpks to continue f/u with [facility]-her symptoms have [...] regimen-no changes in medications Dr. Ramey - [facility] . Hypertension - well controlled [...] gave you a prescription to take to [facility]. DO NOT EAT 8-12 hours before [...] patient-return in 1 week for follow up. CONTACT DR RAMEY ABOUT REFERRAL TO FOR NECK ISSUES . Vaginal yeast infection-RX for diflucan B12 deficiency-check labs . Knee and Ankle pain and instability- recommend evaluation by an customer support specialist [place] [facility] [place] [...] (may be called three old goats) at [employer] [facility] [employer] and home. . Hypertension - well controlled [...] negative-continue to monitor symptoms [facility] referral to [facility] . Hypertension - well controlled - continue [...] with Dr. Grace before her next infusion DEMETRIA WRAPS TO LOWER LEGS CUT BACK [...]
--- OUTSIDE RECORDS SUMMARY | 2017-09-09 10:35 | XMS REPORT | CCD ---
Author Author Aicha Thompson Organization Aicha Thompson MD, [facility] Address [address] [place] [address] Phone Care Team Providers Care Statistics Intern Name Role Phone PP Unavailable CCM Unavailable Summary Purpose Interface Exchange Insurance Providers Payer name Policy type / Coverage type Covered democrat ID Effective Begin Date Effective End Date WPS Medicare Part B Medicare Part B [id number] 2013 Unknown [facility] Medicare Part B [id number] 2013 Unknown Family history Grandmother Diagnosis Age [...] status Unknown 01/29/[address]: 458682234 Never smoker 01/29/[address]: 578604 Currently drinks alcohol mixed drink before bed [...] sleep apnea Unknown Active 05/14/2011 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/11/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 Unknown Overweight (BMI [...] Active sleep apnea Unknown 05/14/2011 Active 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 03/11/2011 Active Overweight (BMI 25.0-29.9) [...] Start Date Stop Date Status Fill Instructions cyanocobalamin (vit B-12) 1,000 mcg/mL injection solution RxNorm: 177909 1 Milliliter(s) Inj 07/06/2017 07/06/2017 Inactive tramadol 50 mg tablet RxNorm: 203247 1-2 Tablet(s) PO TID as needed 06/21/2017 09/18/2017 Active hydrocodone 10 mg-acetaminophen 325 mg tablet RxNorm: 100006 1-2 Tablet(s) PO Q6 as needed for pain 06/17/2017 07/09/2017 Active cyclobenzaprine 10 mg tablet RxNorm: 800811 TAKE 1 TABLET BY MOUTH THREE TIMES DAILY NEEDED FOR MUSCLE SPASMS 06/08/2017 08/31/2018 Active Claritin-D 12 Hour 5 mg-120 mg tablet,extended release RxNorm: 0718314 Tablet(s) as needed TAKE 1 TABLET BY MOUTH TWICE DAILY NEEDED 201709/05/2017 Active Lipitor 20 mg tablet RxNorm: 150462 1 TABLET(S) PO DAILY 201706/02/2018 Active TAKE ONE TABLET BY MOUTH EVERY NIGHT AT BEDTIME trazodone 100 mg tablet RxNorm: 790222 TABLET(S) TAKE 2 TABLETS BY MOUTH EVERY NIGHT AT BEDTIME 05/17/2017 08/14/2017 Active cyclobenzaprine 5 mg tablet RxNorm: 648844 Tablet(s) PO TAKE 1 TABLET BY MOUTH THREE TIMES DAILY NEEDED FOR MUSCLE SPASMS (New dose has not been sent to pharmacy) 05/11/2017 No Stop Date Active Valium 5 mg tablet RxNorm: 978620 1 Tablet(s) PO QID as needed (New dose has not been sent to pharmacy) 05/11/2017 No Stop Date Active diazepam 10 mg tablet RxNorm: 046188 TAKE 1 TABLET BY MOUTH FOUR TIMES DAILY NEEDED 04/28/2017 05/27/2017 Inactive hydrocodone 10 mg-acetaminophen 325 mg tablet RxNorm: 238611 1-2 Tablet(s) PO Q6 as needed for pain 04/27/2017 05/19/2017 Inactive cyanocobalamin (vit B-12) 1,000 mcg/mL injection solution RxNorm: 415647 1 Milliliter(s) Inj 04/27/2017 04/27/2017 Inactive hydrocodone 10 mg-acetaminophen 325 mg tablet RxNorm: 268614 1-2 Tablet(s) PO Q6 as needed for pain 03/17/2017 04/08/2017 Inactive Seroquel 100 mg tablet RxNorm: 761182 1 TABLET(S) PO BID 201603/10/2018 Active TAKE 1 TABLET BY MOUTH TWICE DAILY Valium 10 mg tablet RxNorm: 388571 1 Tablet(s) QID as needed 03/05/2017 05/03/2017 Inactive Claritin-D 12 Hour 5 mg-120 mg tablet,extended release RxNorm: 6136727 Tablet(s) as needed TAKE 1 TABLET BY MOUTH TWICE DAILY NEEDED 201604/25/2017 Inactive pantoprazole 40 mg tablet,delayed release RxNorm: 872391 TAKE 1 TABLET BY MOUTH EVERY DAY 02/26/2017 08/24/2017 Active tramadol 50 mg tablet RxNorm: 205564 1-2 Tablet(s) PO TID as needed 02/17/2017 05/17/2017 Inactive hydrocodone 10 mg-acetaminophen 325 mg tablet RxNorm: 699348 1-2 Tablet(s) PO Q6 as needed for pain 02/17/2017 03/11/2017 Inactive Valium 10 mg tablet RxNorm: 672826 1 Tablet(s) QID as needed 02/02/2017 03/03/2017 Inactive (Response to an electronic controlled substance refill request - RxReferenceNumber: [id number]|1|0|1) Advair Diskus 250 mcg-50 mcg/dose powder for inhalation RxNorm: 9122743 1 Puff(s) INH BID 01/21/2017 05/20/2017 Inactive nystatin 100,000 unit/gram topical powder RxNorm: 933241 1 APPLICATION TOP QID UNTIL HEALED 01/21/2017 No Stop Date Active hydrocodone 10 mg-acetaminophen 325 mg tablet RxNorm: 082059 1-2 Tablet(s) PO Q6 as needed for pain 01/21/2017 02/11/2017 Inactive metoprolol tartrate 25 mg tablet RxNorm: 203565 TABLET(S) 1/2 TABLET(S) PO BID TAKE 1/2 TABLET BY MOUTH TWICE DAILY 01/18/2017 No Stop Date Active Effexor XR 150 mg capsule,extended release RxNorm: 833434 1 CAPSULE(S) PO BID 01/11/2017 12/06/2017 Active TAKE 1 CAPSULE BY MOUTH TWICE DAILY Effexor XR 150 mg capsule,extended release RxNorm: 691575 1 Capsule(s) PO BID 1 CAPSULE(S) PO BID 01/08/2017 07/06/2017 Inactive TAKE 1 CAPSULE BY MOUTH TWICE DAILY nystatin 100,000 unit/gram topical powder RxNorm: 730314 1 APPLICATION TOP QID UNTIL HEALED 12/17/2016 01/20/2017 Inactive hydrocodone 10 mg-acetaminophen 325 mg tablet RxNorm: 653729 1-2 Tablet(s) PO Q6 as needed for pain 12/17/2016 01/07/2017 Inactive Claritin-D 12 Hour 5 mg-120 mg tablet,extended release RxNorm: 1033525 Tablet(s) as needed TAKE 1 TABLET BY MOUTH TWICE DAILY NEEDED 201602/12/2017 Inactive Lipitor 20 mg tablet RxNorm: 601015 1 TABLET(S) PO DAILY 201606/07/2017 Inactive TAKE ONE TABLET BY MOUTH EVERY NIGHT AT BEDTIME Advair Diskus 250 mcg-50 mcg/dose powder for inhalation RxNorm: 7538746 1 Puff(s) INH BID 11/26/2016 01/20/2017 Inactive Valium 10 mg tablet RxNorm: 788213 1 Tablet(s) QID as needed 11/24/2016 01/22/2017 Inactive (Response to an electronic controlled substance refill request - RxReferenceNumber: [id number]|1|0|1) cyanocobalamin (vit B-12) 1,000 mcg/mL injection solution RxNorm: 978793 1 Milliliter(s) Inj 11/17/2016 11/17/2016 Inactive tramadol 50 mg tablet RxNorm: 208926 1-2 Tablet(s) PO TID as needed 11/06/2016 02/02/2017 Inactive hydrocodone 10 mg-acetaminophen 325 mg tablet RxNorm: 269611 1-2 Tablet(s) PO Q6 as needed for pain 11/06/2016 11/27/2016 Inactive nystatin 100,000 unit/gram topical powder RxNorm: 117221 1 Application TOP QID until healed 10/27/2016 12/16/2016 Inactive cyanocobalamin (vit B-12) 1,000 mcg/mL injection solution RxNorm: 001099 1 Milliliter(s) Inj 10/12/2016 10/12/2016 Inactive trazodone 100 mg tablet RxNorm: 825522 Tablet(s) TAKE 2 TABLETS BY MOUTH EVERY NIGHT AT BEDTIME 09/24/2016 03/22/2017 Inactive Valium 10 mg tablet RxNorm: 546471 1 Tablet(s) QID as needed 09/24/2016 11/22/2016 Inactive (Response to an electronic controlled substance refill request - RxReferenceNumber: [id number]|1|0|1) Savella 100 mg tablet RxNorm: 358821 TABLET(S) PO TAKE 1 TABLET BY MOUTH DAILY 09/18/2016 No Stop Date Active pantoprazole 40 mg tablet,delayed release RxNorm: 069425 TAKE 1 TABLET BY MOUTH EVERY DAY 09/18/2016 02/25/2017 Inactive cyanocobalamin (vit B-12) 1,000 mcg/mL injection solution RxNorm: 415097 1 Milliliter(s) Inj 09/11/2016 09/11/2016 Inactive hydrocodone 10 mg-acetaminophen 325 mg tablet RxNorm: 271561 1-2 Tablet(s) PO Q6 as needed for pain 08/24/2016 11/05/2016 Inactive (Response to an electronic controlled substance refill request - RxReferenceNumber: [id number]|1|0|1) Claritin-D 12 Hour 5 mg-120 mg tablet,extended release RxNorm: 3789811 Tablet(s) TAKE 1 TABLET BY MOUTH TWICE DAILY NEEDED 08/13/2016 10/10/2016 Inactive tramadol 50 mg tablet RxNorm: 903078 1-2 Tablet(s) PO TID PRN as needed 08/11/2016 11/05/2016 Inactive metoprolol tartrate 25 mg tablet RxNorm: 103594 TABLET(S) 1/2 TABLET(S) PO BID TAKE 1/2 TABLET BY MOUTH TWICE DAILY 08/10/2016 01/17/2017 Inactive pantoprazole 40 mg tablet,delayed release RxNorm: 476169 TAKE 1 TABLET BY MOUTH EVERY DAY 08/10/2016 11/05/2016 Inactive Savella 100 mg tablet RxNorm: 162456 TABLET(S) PO TAKE 1 TABLET BY MOUTH DAILY 08/10/2016 11/05/2016 Inactive Ventolin HFA 90 mcg/actuation aerosol inhaler RxNorm: 496006 1 OR 2 PUFF(S) INH Q6 PRN NEEDED 08/07/2016 02/02/2017 Inactive Diflucan 150 mg tablet RxNorm: 145935 1 Tablet(s) PO daily 08/201608/13/2016 Inactive nystatin 100,000 unit/mL oral suspension RxNorm: 854737 5 Milliliter(s) PO QID 08/07/2016 08/16/2016 Inactive hydrocodone 10 mg-acetaminophen 325 mg tablet RxNorm: 757441 1-2 Tablet(s) PO Q6 as needed for pain 08/04/2016 08/23/2016 Inactive (Response to an electronic controlled substance refill request - RxReferenceNumber: [id number]|1|0|1) Valium 10 mg tablet RxNorm: 244566 1 Tablet(s) QID as needed 07/20/2016 09/17/2016 Inactive (Response to an electronic controlled substance refill request - RxReferenceNumber: [id number]|1|0|1) tramadol 50 mg tablet RxNorm: 592720 1-2 Tablet(s) PO TID PRN as needed 07/15/2016 11/05/2016 Inactive ok to give 1 month woodcz=594 tablets cyanocobalamin (vit B-12) 1,000 mcg/mL injection solution RxNorm: 142535 Milliliter(s) Inj 07/03/2016 07/03/2016 Inactive Seroquel 100 mg tablet RxNorm: 625177 1 TABLET(S) PO BID 201603/15/2017 Inactive TAKE 1 TABLET BY MOUTH TWICE DAILY hydrocodone 10 mg-acetaminophen 325 mg tablet RxNorm: 830332 1-2 Tablet(s) PO Q6 as needed for pain 06/26/2016 08/03/2016 Inactive (Response to an electronic controlled substance refill request - RxReferenceNumber: [id number]|1|0|1) Valium 10 mg tablet RxNorm: 791844 1 Tablet(s) QID as needed 05/11/2016 07/09/2016 Inactive (Response to an electronic controlled substance refill request - RxReferenceNumber: [id number]|1|0|1) tramadol 50 mg tablet RxNorm: 596168 1-2 Tablet(s) PO TID PRN as needed 05/11/2016 07/08/2016 Inactive ok to give 1 month kzlkle=993 tablets cyclobenzaprine 10 mg tablet RxNorm: 389549 TAKE 1 TABLET BY MOUTH THREE TIMES DAILY NEEDED FOR MUSCLE SPASMS 05/11/2016 05/10/2017 Inactive hydrocodone 10 mg-acetaminophen 325 mg tablet RxNorm: 165526 1-2 Tablet(s) PO Q6 as needed for pain 05/06/2016 06/25/2016 Inactive (Response to an electronic controlled substance refill request - RxReferenceNumber: [id number]|1|0|1) cyanocobalamin (vit B-12) 1,000 mcg/mL injection solution RxNorm: 074710 1 Milliliter(s) Inj 04/20/2016 04/20/2016 Inactive hydrocodone 10 mg-acetaminophen 325 mg tablet RxNorm: 190886 1-2 Tablet(s) PO Q6 as needed for pain 04/03/2016 05/05/2016 Inactive (Response to an electronic controlled substance refill request - RxReferenceNumber: [id number]|1|0|1) pantoprazole 40 mg tablet,delayed release RxNorm: 854260 TAKE 1 TABLET BY MOUTH EVERY DAY 04/02/2016 08/09/2016 Inactive Claritin-D 12 Hour 5 mg-120 mg tablet,extended release RxNorm: 1493882 Tablet(s) TAKE 1 TABLET BY MOUTH TWICE DAILY NEEDED 04/02/2016 11/05/2016 Inactive hydrocodone 10 mg-acetaminophen 325 mg tablet RxNorm: 620147 1-2 Tablet(s) PO Q6 as needed for pain 03/12/2016 04/02/2016 Inactive (Response to an electronic controlled substance refill request - RxReferenceNumber: [id number]|1|0|1) Effexor XR 150 mg capsule,extended release RxNorm: 500922 1 CAPSULE(S) PO BID 03/05/2016 01/07/2017 Inactive TAKE 1 CAPSULE BY MOUTH TWICE DAILY Ventolin HFA 90 mcg/actuation aerosol inhaler RxNorm: 403110 1 OR 2 PUFF(S) INH Q6 PRN NEEDED 02/19/2016 08/06/2016 Inactive cyanocobalamin (vit B-12) 1,000 mcg/mL injection solution RxNorm: 576912 Milliliter(s) Inj 02/13/2016 02/13/2016 Inactive hydrocodone 10 mg-acetaminophen 325 mg tablet RxNorm: 238840 1-2 Tablet(s) PO Q6 as needed for pain 02/05/2016 03/11/2016 Inactive (Response to an electronic controlled substance refill request - RxReferenceNumber: [id number]|1|0|1) Valium 10 mg tablet RxNorm: 044189 1 Tablet(s) QID as needed 02/05/2016 05/04/2016 Inactive (Response to an electronic controlled substance refill request - RxReferenceNumber: [id number]|1|0|1) tramadol 50 mg tablet RxNorm: 028020 1-2 Tablet(s) PO TID PRN as needed 02/05/2016 11/05/2016 Inactive ok to give 1 month rnxxam=966 tablets hydrocodone 10 mg-acetaminophen 325 mg tablet RxNorm: 232062 1-2 Tablet(s) PO Q6 as needed for pain 01/08/2016 02/04/2016 Inactive (Response to an electronic controlled substance refill request - RxReferenceNumber: [id number]|1|0|1) metoprolol tartrate 25 mg tablet RxNorm: 146296 Tablet(s) 1/2 TABLET(S) PO BID TAKE 1/2 TABLET BY MOUTH TWICE DAILY 01/08/2016 08/09/2016 Inactive Symbicort 160 mcg-4.5 mcg/actuation HFA aerosol inhaler RxNorm: 0542832 2 INH BID 01/03/2016 11/25/2016 Inactive Symbicort 160 mcg-4.5 mcg/actuation HFA aerosol inhaler RxNorm: 9466181 1 INH daily 01/03/2016 01/02/2016 Inactive Lipitor 20 mg tablet RxNorm: 043397 1 TABLET(S) PO DAILY 201506/26/2016 Inactive TAKE ONE TABLET BY MOUTH EVERY NIGHT AT BEDTIME trazodone 100 mg tablet RxNorm: 527185 TAKE 2 TABLETS BY MOUTH EVERY NIGHT AT BEDTIME 12/30/2015 09/23/2016 Inactive Savella 100 mg tablet RxNorm: 558890 TABLET(S) PO TAKE 1 TABLET BY MOUTH DAILY 12/30/2015 08/09/2016 Inactive hydrocodone 10 mg-acetaminophen 325 mg tablet RxNorm: 271332 1-2 Tablet(s) PO Q6 as needed for pain 12/12/2015 01/07/2016 Inactive (Response to an electronic controlled substance refill request - RxReferenceNumber: [id number]|1|0|1) cyanocobalamin (vit B-12) 1,000 mcg/mL injection solution RxNorm: 879538 1 Milliliter(s) Inj 12/02/2015 12/02/2015 Inactive hydrocodone 10 mg-acetaminophen 325 mg tablet RxNorm: 393285 1-2 Tablet(s) PO Q6 as needed for pain 12/02/2015 12/11/2015 Inactive (Response to an electronic controlled substance refill request - RxReferenceNumber: [id number]|1|0|1) Claritin-D 12 Hour 5 mg-120 mg tablet,extended release RxNorm: 1984569 Tablet(s) TAKE 1 TABLET BY MOUTH TWICE DAILY 11/11/2015 11/10/2015 Inactive Claritin-D 12 Hour 5 mg-120 mg tablet,extended release RxNorm: 6773554 Tablet(s) TAKE 1 TABLET BY MOUTH TWICE DAILY NEEDED 11/11/2015 01/06/2016 Inactive tramadol 50 mg tablet RxNorm: 445009 1-2 Tablet(s) PO TID PRN as needed 11/05/2015 11/05/2016 Inactive ok to give 1 month gixglu=848 tablets Valium 10 mg tablet RxNorm: 713720 1 Tablet(s) QID as needed 11/05/2015 02/02/2016 Inactive (Response to an electronic controlled substance refill request - RxReferenceNumber: [id number]|1|0|1) cyanocobalamin (vit B-12) 1,000 mcg/mL injection solution RxNorm: 111927 1 Milliliter(s) Inj 10/29/2015 10/29/2015 Inactive hydrocodone 10 mg-acetaminophen 325 mg tablet RxNorm: 367479 1-2 Tablet(s) PO Q6 as needed for pain 10/28/2015 12/01/2015 Inactive (Response to an electronic controlled substance refill request - RxReferenceNumber: [id number]|1|0|1) pantoprazole 40 mg tablet,delayed release RxNorm: 912789 TAKE 1 TABLET BY MOUTH EVERY DAY 10/08/2015 04/01/2016 Inactive Seroquel 100 mg tablet RxNorm: 531992 1 TABLET(S) PO BID 201506/29/2016 Inactive TAKE 1 TABLET BY MOUTH TWICE DAILY trazodone 100 mg tablet RxNorm: 355479 TAKE 2 TABLETS BY MOUTH EVERY NIGHT AT BEDTIME 10/08/2015 10/01/2016 Inactive Lipitor 20 mg tablet RxNorm: 015440 1 TABLET(S) PO DAILY 201504/04/2016 Inactive TAKE ONE TABLET BY MOUTH EVERY NIGHT AT BEDTIME hydrocodone 10 mg-acetaminophen 325 mg tablet RxNorm: 305610 1-2 Tablet(s) PO Q6 as needed for pain 09/19/2015 10/18/2015 Inactive (Response to an electronic controlled substance refill request - RxReferenceNumber: [id number]|1|0|1) Valium 10 mg tablet RxNorm: 145808 1 Tablet(s) QID as needed 09/05/2015 11/03/2015 Inactive (Response to an electronic controlled substance refill request - RxReferenceNumber: [id number]|1|0|1) Savella 100 mg tablet RxNorm: 454367 Tablet(s) PO TAKE 1 TABLET BY MOUTH DAILY 07/19/2015 11/05/2016 Inactive Zithromax Z-Lauro 250 mg tablet RxNorm: 137138 1 Tablet(s) PO UD 07/12/2015 11/04/2015 Inactive z lauro hydrocodone 10 mg-acetaminophen 325 mg tablet RxNorm: 991966 1-2 Tablet(s) PO Q6 as needed for pain 07/10/2015 08/08/2015 Inactive (Response to an electronic controlled substance refill request - RxReferenceNumber: [id number]|1|0|1) tramadol 50 mg tablet RxNorm: 675131 1-2 Tablet(s) PO TID PRN as needed 07/04/2015 11/05/2016 Inactive ok to give 1 month meawfl=606 tablets hydrocodone 10 mg-acetaminophen 325 mg tablet RxNorm: 158009 1-2 Tablet(s) PO Q6 as needed for pain 06/10/2015 07/09/2015 Inactive (Response to an electronic controlled substance refill request - RxReferenceNumber: [id number]|1|0|1) cyanocobalamin (vit B-12) 1,000 mcg/mL injection solution RxNorm: 105338 Milliliter(s) Inj 06/10/2015 06/10/2015 Inactive pantoprazole 40 mg tablet,delayed release RxNorm: 476112 TABLET(S) PO TAKE 1 TABLET BY MOUTH EVERY DAY 06/10/201511/05 Inactive pantoprazole 40 mg tablet,delayed release RxNorm: 294132 Tablet(s) PO TAKE 1 TABLET BY MOUTH EVERY DAY 06/06/201511/05 Inactive tramadol 50 mg tablet RxNorm: 070859 1-2 Tablet(s) PO TID PRN as needed 05/29/2015 06/27/2015 Inactive ok to give 1 month pbhunl=862 tablets tramadol 50 mg tablet RxNorm: 657544 1-2 Tablet(s) PO Q6 as needed 05/29/2015 06/09/2015 Inactive Valium 10 mg tablet RxNorm: 796915 1 Tablet(s) QID as needed 05/08/2015 07/06/2015 Inactive (Response to an electronic controlled substance refill request - RxReferenceNumber: [id number]|1|0|1) cyclobenzaprine 10 mg tablet RxNorm: 690003 TAKE 1 TABLET BY MOUTH THREE TIMES DAILY NEEDED FOR MUSCLE SPASMS 05/08/2015 05/10/2016 Inactive Effexor XR 150 mg capsule,extended release RxNorm: 539357 1 Capsule(s) PO BID 1 CAPSULE(S) PO BID 05/08/2015 11/05/2016 Inactive TAKE 1 CAPSULE BY MOUTH TWICE DAILY hydrocodone 10 mg-acetaminophen 325 mg tablet RxNorm: 640407 1-2 Tablet(s) PO Q6 as needed for pain 05/08/2015 06/06/2015 Inactive (Response to an electronic controlled substance refill request - RxReferenceNumber: [id number]|1|0|1) metoprolol tartrate 25 mg tablet RxNorm: 823246 1/2 TABLET(S) PO BID TAKE 1/2 TABLET BY MOUTH TWICE DAILY 05/06/201507/2015 Inactive Claritin-D 12 Hour 5 mg-120 mg tablet,extended release RxNorm: 6416388 TAKE 1 TABLET BY MOUTH TWICE DAILY 04/16/201506/2016 Inactive hydrocodone 10 mg-acetaminophen 325 mg tablet RxNorm: 269151 1-2 Tablet(s) PO Q6 as needed for pain 04/15/2015 05/07/2015 Inactive (Response to an electronic controlled substance refill request - RxReferenceNumber: [id number]|1|0|1) pantoprazole 40 mg tablet,delayed release RxNorm: 594925 TABLET(S) PO TAKE 1 TABLET BY MOUTH EVERY DAY 04/08/201506/06 Inactive hydrocodone 10 mg-acetaminophen 325 mg tablet RxNorm: 880990 1 Tablet(s) PO Q4 PRN TAKE 1-2 TABLETS BY MOUTH EVERY 6 HOURS NEEDED FOR PAIN 03/14/2015 04/12/2015 Inactive (Response to an electronic controlled substance refill request - RxReferenceNumber: [id number]|1|0|1) diazepam 10 mg tablet RxNorm: 368512 1 Tablet(s) TID TAKE 1 TABLET BY MOUTH THREE TIMES DAILY NEEDED 02/08/20152016 Inactive (Response to an electronic controlled substance refill request - RxReferenceNumber: [id number]|1|0|1) Effexor XR 150 mg capsule,extended release RxNorm: 794706 1 CAPSULE(S) PO BID 02/07/2015 05/07/2015 Inactive TAKE 1 CAPSULE BY MOUTH TWICE DAILY cyclobenzaprine 10 mg tablet RxNorm: 260207 TAKE 1 TABLET BY MOUTH THREE TIMES DAILY NEEDED FOR MUSCLE SPASMS 02/07/2015 05/07/2015 Inactive pantoprazole 40 mg tablet,delayed release RxNorm: 682969 TABLET(S) PO TAKE 1 TABLET BY MOUTH EVERY DAY 02/07/201504/07 Inactive hydrocodone 10 mg-acetaminophen 325 mg tablet RxNorm: 960982 1 Tablet(s) PO Q4 PRN TAKE 1-2 TABLETS BY MOUTH EVERY 6 HOURS NEEDED FOR PAIN 01/25/2015 02/23/2015 Inactive (Response to an electronic controlled substance refill request - RxReferenceNumber: [id number]|1|0|1) Bactroban Nasal 2 % ointment RxNorm: 114736 1 Application NASAL BID 01/10/2015 01/10/2015 Inactive mupirocin 2 % topical ointment RxNorm: 063921 1 Application TOP TID 1 APPLICATION TOP PRN 01/10/2015 01/19/2015 Inactive disregard order for nasal ointment , use on left knee trazodone 100 mg tablet RxNorm: 448769 TAKE 2 TABLETS BY MOUTH EVERY NIGHT AT BEDTIME 01/08/2015 10/07/2015 Inactive Seroquel 100 mg tablet RxNorm: 178611 1 TABLET(S) PO BID 201410/04/2015 Inactive TAKE 1 TABLET BY MOUTH TWICE DAILY cyclobenzaprine 10 mg tablet RxNorm: 627368 TAKE 1 TABLET BY MOUTH THREE TIMES DAILY NEEDED FOR MUSCLE SPASMS 01/08/2015 02/06/2015 Inactive hydrocodone 10 mg-acetaminophen 325 mg tablet RxNorm: 132518 1 Tablet(s) PO Q4 PRN TAKE 1-2 TABLETS BY MOUTH EVERY 6 HOURS NEEDED FOR PAIN 12/21/2014 01/19/2015 Inactive (Response to an electronic controlled substance refill request - RxReferenceNumber: [id number]|1|0|1) pantoprazole 40 mg tablet,delayed release RxNorm: 381250 TABLET(S) PO TAKE 1 TABLET BY MOUTH EVERY DAY 12/13/201402/06 Inactive Lipitor 20 mg tablet RxNorm: 887324 1 Tablet(s) PO daily 201409/08/2015 Inactive TAKE ONE TABLET BY MOUTH EVERY NIGHT AT BEDTIME Valium 10 mg tablet RxNorm: 644282 1 Tablet(s) QID as needed 12/12/2014 02/09/2015 Inactive (Response to an electronic controlled substance refill request - RxReferenceNumber: [id number]|1|0|1) hydrocodone 10 mg-acetaminophen 325 mg tablet RxNorm: 695015 Tablet(s) TAKE 1-2 TABLETS BY MOUTH EVERY 6 HOURS NEEDED FOR PAIN 12/12/2014 12/20/2014 Inactive ( Response to an electronic controlled substance refill request - RxReferenceNumber: [id number]|1|0|1) Lipitor 20 mg tablet RxNorm: 247668 1 Tablet(s) PO daily 201412/12/2014 Inactive TAKE ONE TABLET BY MOUTH EVERY NIGHT AT BEDTIME pantoprazole 40 mg tablet,delayed release RxNorm: 327609 TABLET(S) PO TAKE 1 TABLET BY MOUTH EVERY DAY 12/06/201411/05 Inactive Savella 100 mg tablet RxNorm: 300041 Tablet(s) PO TAKE 1 TABLET BY MOUTH DAILY 12/06/2014 07/18/2015 Inactive Lipitor 20 mg tablet RxNorm: 544485 1 Tablet(s) PO daily 201412/10/2014 Inactive TAKE ONE TABLET BY MOUTH EVERY NIGHT AT BEDTIME Valium 10 mg tablet RxNorm: 205933 TAKE 1 TABLET BY MOUTH FOUR TIMES DAILY NEEDED FOR ANXIETY 12/06/2014 12/11/2014 Inactive Valium 10 mg tablet RxNorm: 481400 1 Tablet(s) QID as needed 11/13/2014 12/11/2014 Inactive (Response to an electronic controlled substance refill request - RxReferenceNumber: [id number]|1|0|1) hydrocodone 10 mg-acetaminophen 325 mg tablet RxNorm: 056625 Tablet(s) TAKE 1-2 TABLETS BY MOUTH EVERY 6 HOURS NEEDED FOR PAIN 11/13/2014 12/11/2014 Inactive ( Response to an electronic controlled substance refill request - RxReferenceNumber: [id number]|1|0|1) hydrocodone 10 mg-acetaminophen 325 mg tablet RxNorm: 584806 Tablet(s) TAKE 1-2 TABLETS BY MOUTH EVERY 6 HOURS NEEDED FOR PAIN 11/08/2014 11/12/2014 Inactive ( Response to an electronic controlled substance refill request - RxReferenceNumber: [id number]|1|0|1) Valium 10 mg tablet RxNorm: 002160 1 Tablet(s) QID as needed 11/08/2014 11/12/2014 Inactive (Response to an electronic controlled substance refill request - RxReferenceNumber: [id number]|1|0|1) metoprolol tartrate 25 mg tablet RxNorm: 740052 1/2 TABLET(S) PO BID TAKE 1/2 TABLET BY MOUTH TWICE DAILY 11/08/2014 Inactive Valium 10 mg tablet RxNorm: 311216 TAKE 1 TABLET BY MOUTH FOUR TIMES DAILY NEEDED FOR ANXIETY 11/06/2014 12/09/2014 Inactive Vitamin D2 50,000 unit capsule RxNorm: 907355 1 Capsule(s) PO QW 10/24/2014 10/23/2014 Inactive Vitamin D2 50,000 unit capsule RxNorm: 523771 1 Capsule(s) PO QW x 8 weeks 10/24/2014 12/22/2014 Inactive Entyvio 300 mg intravenous solution RxNorm: 7296049 IV 2014 No Stop Date Active hydrocodone 10 mg-acetaminophen 325 mg tablet RxNorm: 836140 Tablet(s) TAKE 1-2 TABLETS BY MOUTH EVERY 6 HOURS NEEDED FOR PAIN 10/05/2014 11/03/2014 Inactive ( Response to an electronic controlled substance refill request - RxReferenceNumber: [id number]|1|0|1) Valium 10 mg tablet RxNorm: 524869 TAKE 1 TABLET BY MOUTH EVERY 8 HOURS NEEDED 10/05/2014 11/03/2014 Inactive (Response to an electronic controlled substance refill request - RxReferenceNumber: [id number]|1|0|1) Valium 10 mg tablet RxNorm: 922881 1 Tablet(s) PO QID as needed TAKE 1 TABLET BY MOUTH 10/05/2014 11/05/2016 Inactive (Response to an electronic controlled substance refill request - RxReferenceNumber: [id number]|1|0|1) Valium 10 mg tablet RxNorm: 595509 TAKE 1 TABLET BY MOUTH THREE TIMES DAILY NEEDED 09/04/2014 10/03/2014 Inactive (Response to an electronic controlled substance refill request - RxReferenceNumber: [id number]|1|0|1) Valium 10 mg tablet RxNorm: 542300 1 Tablet(s) PO Q8 PRN as needed 09/04/2014 11/09/2014 Inactive hydrocodone 10 mg-acetaminophen 325 mg tablet RxNorm: 684134 Tablet(s) TAKE 1-2 TABLETS BY MOUTH EVERY 6 HOURS NEEDED FOR PAIN 08/27/2014 09/25/2014 Inactive ( Response to an electronic controlled substance refill request - RxReferenceNumber: [id number]|1|0|1) Claritin-D 12 Hour 5 mg-120 mg tablet,extended release RxNorm: [id number] 1 Tablet(s ) PO BID 08/27/2014 04/16/2015 Inactive Ventolin HFA 90 mcg/actuation aerosol inhaler RxNorm: 788072 1 or 2 Puff(s) INH Q6 PRN as needed 08/09/2014 03/06/2015 Inactive pantoprazole 40 mg tablet,delayed release RxNorm: 232515 Tablet(s) PO TAKE 1 TABLET BY MOUTH EVERY DAY 08/09/201408/08 Inactive pantoprazole 40 mg tablet,delayed release RxNorm: 156281 TAKE 1 TABLET BY MOUTH EVERY DAY 08/09/2014 11/05/2016 Inactive diazepam 10 mg tablet RxNorm: 134376 TAKE 1 TABLET BY MOUTH THREE TIMES DAILY NEEDED 07/02/2014 07/31/2014 Inactive (Response to an electronic controlled substance refill request - RxReferenceNumber: [id number]|1|0|1) Valium 10 mg tablet RxNorm: 348899 1 Tablet(s) PO Q8 PRN as needed 07/02/2014 07/01/2014 Inactive hydrocodone 10 mg-acetaminophen 325 mg tablet RxNorm: 737935 Tablet(s) TAKE 1-2 TABLETS BY MOUTH EVERY 6 HOURS NEEDED FOR PAIN 06/14/2014 07/13/2014 Inactive ( Response to an electronic controlled substance refill request - RxReferenceNumber: [id number]|1|0|1) diazepam 10 mg tablet RxNorm: 515563 TAKE 1 TABLET BY MOUTH THREE TIMES DAILY NEEDED 05/29/2014 06/27/2014 Inactive (Response to an electronic controlled substance refill request - RxReferenceNumber: [id number]|1|0|1) diazepam 10 mg tablet RxNorm: 096520 Tablet(s) PO TAKE 1 TABLET BY MOUTH THREE TIMES DAILY NEEDED 05/29/20142013 Inactive (Appended: Controlled substance eRx refill - RxReferenceNumber: [id number]|1|0|1) hydrocodone 10 mg-acetaminophen 325 mg tablet RxNorm: 061668 Tablet(s) TAKE 1-2 TABLETS BY MOUTH EVERY 6 HOURS NEEDED FOR PAIN 05/17/2014 06/13/2014 Inactive ( Response to an electronic controlled substance refill request - RxReferenceNumber: [id number]|1|0|1) diazepam 10 mg tablet RxNorm: 301914 Tablet(s) PO TAKE 1 TABLET BY MOUTH THREE TIMES DAILY NEEDED 04/27/20142013 Inactive (Appended: Controlled substance eRx refill - RxReferenceNumber: [id number]|1|0|1) Anucort-HC 25 mg suppository RxNorm: 2054480 1 SUPPOSITORY RTL QDAY PRN NEEDED 04/03/2014 06/01/2014 Inactive metoprolol tartrate 25 mg tablet RxNorm: 266210 1/2 TABLET(S) PO BID TAKE 1/2 TABLET BY MOUTH TWICE DAILY 04/03/201408/2014 Inactive Anucort-HC 25 mg suppository RxNorm: 5932705 1 SUPPOSITORY RTL QDAY PRN NEEDED 04/03/2014 06/01/2014 Inactive Seroquel 100 mg tablet RxNorm: 817643 1 TABLET(S) PO BID 201312/28/2014 Inactive TAKE 1 TABLET BY MOUTH TWICE DAILY Anucort-HC 25 mg suppository RxNorm: 0300390 1 SUPPOSITORY RTL QDAY PRN NEEDED 04/03/2014 06/01/2014 Inactive hydrocodone 10 mg-acetaminophen 325 mg tablet RxNorm: 701299 Tablet(s) TAKE 1-2 TABLETS BY MOUTH EVERY 6 HOURS NEEDED FOR PAIN 03/22/2014 04/20/2014 Inactive ( Response to an electronic controlled substance refill request - RxReferenceNumber: [id number]|1|0|1) Claritin-D 12 Hour 5 mg-120 mg tablet,extended release RxNorm: 2730507 1 Tablet(s ) PO BID 03/22/2014 2014 Inactive diazepam 10 mg tablet RxNorm: 305352 TAKE 1 TABLET BY MOUTH THREE TIMES DAILY NEEDED 03/19/2014 04/16/2014 Inactive (Response to an electronic controlled substance refill request - RxReferenceNumber: [id number]|1|0|1) Lipitor 20 mg tablet RxNorm: 599252 1 TABLET(S) PO DAILY 201312/05/2014 Inactive TAKE ONE TABLET BY MOUTH EVERY NIGHT AT BEDTIME Effexor XR 150 mg capsule,extended release RxNorm: 740322 1 CAPSULE(S) PO BID 03/01/2014 01/24/2015 Inactive TAKE 1 CAPSULE BY MOUTH TWICE DAILY Claritin-D 12 Hour 5 mg-120 mg tablet,extended release RxNorm: 5185183 1 Tablet(s ) PO BID 02/19/2014 03/21/2014 Inactive cyanocobalamin (vit B-12) 1,000 mcg/mL injection solution RxNorm: 329858 Milliliter(s) Inj 02/15/2014 02/15/2014 Inactive hydrocodone 10 mg-acetaminophen 325 mg tablet RxNorm: 729729 1 Tablet(s) PO Q6 PRN TAKE ONE TO TWO TABLETS BY MOUTH EVERY 6 HOURS NEEDED FOR PAIN 01/30/2014 01/30/2014 Inactive (Response to an electronic controlled substance refill request - RxReferenceNumber: [id number]|1|0|1) hydrocodone 10 mg-acetaminophen 325 mg tablet RxNorm: 788959 TAKE 1-2 TABLETS BY MOUTH EVERY 6 HOURS NEEDED FOR PAIN 01/30/2014 02/19/2014 Inactive (Response to an electronic controlled substance refill request - RxReferenceNumber: [id number]| [id number]|1|0|1) cyanocobalamin (vit B-12) 1,000 mcg/mL injection kit RxNorm: 591889 1 Milliliter(s ) Inj 01/15/2014 01/15/2014 Inactive Kenalog 40 mg/mL suspension for injection RxNorm: 8777783 1 Milliliter(s) Inj 01/15/2014 01/15/2014 Inactive Anucort-HC 25 mg suppository RxNorm: 1211223 1 Suppository RTL QDAY PRN as needed 01/15/2014 02/13/2014 Inactive hydrocodone 10 mg-acetaminophen 325 mg tablet RxNorm: 332385 TAKE ONE TO TWO TABLETS BY MOUTH EVERY 6 HOURS NEEDED FOR PAIN 12/29/2013 01/18/2014 Inactive ( Response to an electronic controlled substance refill request - RxReferenceNumber: [id number]|1|0|1) trazodone 100 mg tablet RxNorm: 385857 TAKE 2 TABLETS BY MOUTH EVERY NIGHT AT BEDTIME 12/20/2013 12/14/2014 Inactive mupirocin 2 % topical ointment RxNorm: 149421 1 APPLICATION TOP PRN 12/14/2013 01/09/2015 Inactive cyanocobalamin (vit B-12) 1,000 mcg/mL injection solution RxNorm: 405622 1 Milliliter(s) Inj 12/04/2013 12/04/2013 Inactive Savella 100 mg tablet RxNorm: 954833 1 Tablet(s) PO daily TAKE 1 TABLET BY MOUTH DAILY 11/28/2013 11/05/2016 Inactive Savella 100 mg tablet RxNorm: 506078 Tablet(s) PO TAKE 1 TABLET BY MOUTH DAILY 10/27/2013 11/27/2013 Inactive mupirocin 2 % topical ointment RxNorm: 989548 1 Application TOP PRN 10/17/2013 No Stop Date Active trazodone 100 mg tablet RxNorm: 700621 Tablet(s) PO TAKE 2 TABLETS BY MOUTH EVERY NIGHT AT BEDTIME 09/26/2013 11/05/2016 Inactive cyclobenzaprine 10 mg tablet RxNorm: 287866 Tablet(s) PO TAKE ONE TABLET BY MOUTH THREE TIMES DAILY 09/26/2013 01/07/2015 Inactive diazepam 10 mg tablet RxNorm: 027596 Tablet(s) PO TAKE 1 TABLET BY MOUTH THREE TIMES DAILY NEEDED 08/15/20132013 Inactive (Appended: Controlled substance eRx refill - RxReferenceNumber: [id number]|1|0|1) diazepam 10 mg tablet RxNorm: 173597 1 Tablet(s) PO TID PRN TAKE 1 TABLET BY MOUTH THREE TIMES DAILY NEEDED 08/15/2013 Inactive (Appended: Controlled substance eRx refill - RxReferenceNumber: [id number]|1|0|1) Vitamin B-12 1,000 mcg/mL injection solution RxNorm: 553197 Milliliter(s) Inj 07/24/2013 07/24/2013 Inactive pantoprazole 40 mg tablet,delayed release RxNorm: 881645 Tablet(s) PO TAKE 1 TABLET BY MOUTH EVERY DAY 07/20/201308/08 Inactive hydrocodone 10 mg-acetaminophen 325 mg tablet RxNorm: 209510 1 or 2 Tablet(s) PO Q6 PRN limit 6 per day 06/26/20132013 Inactive (Appended: Controlled substance eRx refill - RxReferenceNumber: [id number]|1|0|1) trazodone 100 mg tablet RxNorm: 033576 Tablet(s) PO TAKE 2 TABLETS BY MOUTH EVERY NIGHT AT BEDTIME 06/26/2013 11/05/2016 Inactive pantoprazole 40 mg tablet,delayed release RxNorm: 997193 Tablet(s) PO TAKE 1 TABLET BY MOUTH EVERY DAY 06/20/201306/05 Inactive prednisone 10 mg tablets in a dose pack RxNorm: 649746 Tablet(s) PO 6-5-4-3-2-1 06/13/2013 06/12/2013 Inactive prednisone 10 mg tablets in a dose pack RxNorm: 397392 Tablet(s) PO UD 6-5-4-3-2- 1 06/13/2013 06/18/2013 Inactive Silvadene 1 % topical cream RxNorm: 354343 1 TOP daily apply thin layer to left knee daily 06/12/2013 06/18/2013 Inactive metoprolol tartrate 25 mg tablet RxNorm: 065638 1/2 Tablet(s) PO BID TAKE 1/2 TABLET BY MOUTH TWICE DAILY 05/19/2013 Inactive Lipitor 20 mg tablet RxNorm: 455265 1 Tablet(s) PO daily 201203/11/2014 Inactive TAKE ONE TABLET BY MOUTH EVERY NIGHT AT BEDTIME Vitamin B-12 1,000 mcg/mL injection solution RxNorm: 356799 1 Milliliter(s) Inj 05/10/2013 05/10/2013 Inactive hydrocodone 10 mg-acetaminophen 325 mg tablet RxNorm: 946787 1 or 2 Tablet(s) PO Q6 PRN limit 6 per day 03/16/2013 No Stop Date Active (Appended: Controlled substance eRx refill - RxReferenceNumber: [id number]|1|0|1) Seroquel 100 mg tablet RxNorm: 283256 1 Tablet(s) PO BID 201203/10/2014 Inactive TAKE 1 TABLET BY MOUTH TWICE DAILY Effexor XR 150 mg capsule,extended release RxNorm: 672368 1 Capsule(s) PO BID 03/16/2013 02/28/2014 Inactive TAKE 1 CAPSULE BY MOUTH TWICE DAILY fluconazole 150 mg tablet RxNorm: 060140 1 Tablet(s) PO daily 03/06/2013 03/12/2013 Inactive Kenalog 40 mg/mL Susp for Injection RxNorm: 3288860 Milliliter(s) Inj 03/06/2013 03/06/2013 Inactive Ventolin HFA 90 mcg/actuation Aerosol Inhaler RxNorm: 8682975 1 or 2 Puff(s) INH Q6 PRN 02/20/2013 03/16/2014 Inactive cyanocobalamin (vitamin B-12) 1,000 mcg/mL Injection RxNorm: 430047 Milliliter(s) Inj 02/20/2013 02/20/2013 Inactive Valium 10 mg tablet RxNorm: 088693 1 Tablet(s) PO Q8 PRN 01/3102/24/2014 Inactive Kenalog 40 mg/mL Susp for Injection RxNorm: 7565171 Milliliter(s) Inj 12/26/2012 12/26/2012 Inactive cyanocobalamin (vitamin B-12) 1,000 mcg/mL Injection RxNorm: 854409 Milliliter(s) Inj 12/21/2012 12/21/2012 Inactive hydrocodone 10 mg-acetaminophen 325 mg tablet RxNorm: 5193064 1 or 2 Tablet(s) PO Q6 PRN limit 6 per day 11/25/20122012 Inactive (Appended: Controlled substance eRx refill - RxReferenceNumber: [id number]|1|0|1) diazepam 10 mg tablet RxNorm: 102965 1 Tablet(s) PO TID PRN 08/15/2013 Inactive TAKE 1 TABLET BY MOUTH THREE TIMES DAILY NEEDED (Appended: Controlled substance eRx refill - RxReferenceNumber: [id number]|1|0|1) diazepam 10 mg tablet RxNorm: 843853 Tablet(s) PO TAKE 1 TABLET BY MOUTH THREE TIMES DAILY NEEDED 11/21/20122013 Inactive (Appended: Controlled substance eRx refill - RxReferenceNumber: [id number]|1|0|1) Vitamin B-12 1,000 mcg/mL Injection RxNorm: 101444 1 Milliliter(s) Inj 11/16/2012 11/16/2012 Inactive hydrocodone 10 mg-acetaminophen 325 mg tablet RxNorm: 7299376 1 or 2 Tablet(s) PO Q6 PRN limit 6 per day 10/24/20122012 Inactive (Appended: Controlled substance eRx refill - RxReferenceNumber: [id number]|1|0|1) hydrocodone 10 mg-acetaminophen 325 mg tablet RxNorm: 4673879 Tablet(s) PO limit 5x days 10/24/2012 10/23/2012 Inactive (Appended: Controlled substance eRx refill - RxReferenceNumber: [id number]|1|0|1) Savella 100 mg tablet RxNorm: 529580 Tablet(s) PO TAKE 1 TABLET BY MOUTH DAILY 10/14/2012 12/05/2014 Inactive Tubersol 5 tub. unit/0.1 mL Intradermal RxNorm: 467192 Milliliter(s) IDrm 09/26/2012 09/26/2012 Inactive hydrocodone 10 mg-acetaminophen 325 mg tablet RxNorm: 8411164 1 Tablet(s) PO Q4 PRN q 4 hr prn limit 5 per day 09/19/2012 No Stop Date Active (Appended: Controlled substance eRx refill - RxReferenceNumber: [id number]|1|0|1) hydrocodone 10 mg-acetaminophen 325 mg tablet RxNorm: 6151295 Tablet(s) PO TAKE 1 TABLET BY MOUTH FOUR TIMES DAILY 09/16/2012 10/23/2012 Inactive (Appended: Controlled substance eRx refill - RxReferenceNumber: [id number]|1|0|1) cyclobenzaprine 10 mg tablet RxNorm: 737003 Tablet(s) PO TAKE ONE TABLET BY MOUTH THREE TIMES DAILY 09/16/2012 09/25/2013 Inactive hydrocodone 10 mg-acetaminophen 325 mg tablet RxNorm: 4119523 1 Tablet(s) PO Q4 PRN q 4 hr prn limit 5 per day 09/14/2012 09/19/2012 Inactive (Appended: Controlled substance eRx refill - RxReferenceNumber: [id number]|1|0|1) cyanocobalamin (vitamin B-12) 1,000 mcg/mL Injection RxNorm: 511798 1 Milliliter(s ) Inj 09/12/2012 09/12/2012 Inactive cyclobenzaprine 10 mg tablet RxNorm: 406686 Tablet(s) PO TAKE ONE TABLET BY MOUTH THREE TIMES DAILY 09/02/2012 09/15/2012 Inactive hydrocodone 10 mg-acetaminophen 325 mg tablet RxNorm: 7761163 1 Tablet(s) PO QID TAKE 1 TABLET BY MOUTH FOUR TIMES DAILY 08/23/2012 09/13/2012 Inactive (Appended: Controlled substance eRx refill - RxReferenceNumber: [id number]|1|0|1) Kenalog 40 mg/mL Susp for Injection RxNorm: 5656677 1 Milliliter(s) Inj 08/11/2012 08/11/2012 Inactive Vitamin B-12 1,000 mcg/mL Injection RxNorm: 101349 1 Milliliter(s) Inj 08/11/2012 08/11/2012 Inactive Zithromax 250 mg tablet RxNorm: 852676 Tablet(s) PO 07/21/2012 09/14/2012 Inactive please give z lauro cefdinir 300 mg capsule RxNorm: 342404 1 Capsule(s) PO BID 07/20/2012 Inactive cefdinir 300 mg capsule RxNorm: 464380 1 Capsule(s) PO BID 07/27/2012 Inactive diazepam 10 mg tablet RxNorm: 582350 1 Tablet(s) PO TID PRN 12/201211/22/2012 Inactive TAKE 1 TABLET BY MOUTH THREE TIMES DAILY NEEDED (Appended: Controlled substance eRx refill - RxReferenceNumber: [id number]|1|0|1) Vitamin B-12 1,000 mcg/mL Injection RxNorm: 529330 1 Milliliter(s) Inj 07/13/2012 07/13/2012 Inactive pantoprazole 40 mg tablet,delayed release RxNorm: 572244 1 Tablet(s) PO daily 06/14/2012 06/13/2012 Inactive pantoprazole 40 mg tablet,delayed release RxNorm: 960680 1 Tablet(s) PO daily 06/14/2012 06/19/2013 Inactive trazodone 100 mg tablet RxNorm: 152717 Tablet(s) PO TAKE 2 TABLETS BY MOUTH EVERY NIGHT AT BEDTIME 06/06/2012 11/05/2016 Inactive hydrocodone 10 mg-acetaminophen 325 mg tablet RxNorm: 4732268 Tablet(s) PO TAKE 1 TABLET BY MOUTH FOUR TIMES DAILY 05/24/2012 08/23/2012 Inactive (Appended: Controlled substance eRx refill - RxReferenceNumber: [id number]|1|0|1) Symbicort 160 mcg-4.5 mcg/actuation HFA Aerosol Inhaler RxNorm: 0068211 1 INH daily 05/24/2012 05/23/2012 Inactive this is an increase in dosing Symbicort 160 mcg-4.5 mcg/actuation HFA Aerosol Inhaler RxNorm: 3058016 1 INH daily 05/24/2012 06/17/2013 Inactive this is an increase in dosing Ventolin HFA 90 mcg/actuation Aerosol Inhaler RxNorm: 358650 1 or 2 Puff(s) INH Q6 PRN 05/24/2012 05/23/2012 Inactive Ventolin HFA 90 mcg/actuation Aerosol Inhaler RxNorm: 756740 1 or 2 Puff(s) INH Q6 PRN 05/24/2012 02/19/2013 Inactive metoprolol tartrate 25 mg tablet RxNorm: 668902 Tablet(s) PO TAKE 1/2 TABLET BY MOUTH TWICE DAILY 05/24/2012 05/18/2013 Inactive hydrocodone-acetaminophen 10 mg-325 mg tablet RxNorm: 5763928 Tablet(s) PO TAKE 1 TABLET BY MOUTH FOUR TIMES DAILY 05/17/2012 05/17/2012 Inactive (Appended: Controlled substance eRx refill - RxReferenceNumber: [id number]|1|0|1) diazepam 10 mg tablet RxNorm: 025287 Tablet(s) PO 05/03/2012 07/13/2012 Inactive TAKE 1 TABLET BY MOUTH THREE TIMES DAILY NEEDED (Appended: Controlled substance eRx refill - RxReferenceNumber: [id number]|1|0|1) metoprolol tartrate 25 mg tablet RxNorm: 872568 Tablet(s) PO 11/05/2016 Inactive TAKE 1/2 TABLET BY MOUTH TWICE DAILY hydrocodone-acetaminophen 10 mg-325 mg tablet RxNorm: 1701724 Tablet(s) PO 04/11/2012 05/17/2012 Inactive TAKE 1 TABLET BY MOUTH FOUR TIMES DAILY (Appended: Controlled substance eRx refill - RxReferenceNumber: [id number]|1|0|1) ProAir HFA 90 mcg/actuation Aerosol Inhaler RxNorm: 443328 2 INH Q4 PRN 04/05/2012 04/29/2013 Inactive Symbicort 80 mcg-4.5 mcg/actuation HFA Aerosol Inhaler RxNorm: 7736947 2 INH BID 04/05/2012 04/04/2012 Inactive Symbicort 80 mcg-4.5 mcg/actuation HFA Aerosol Inhaler RxNorm: 7248533 2 INH BID 04/05/2012 05/23/2012 Inactive ProAir HFA 90 mcg/actuation Aerosol Inhaler RxNorm: 025255 2 INH Q4 PRN 04/05/2012 04/04/2012 Inactive diazepam 10 mg tablet RxNorm: 691117 Tablet(s) PO 03/17/2012 05/03/2012 Inactive TAKE 1 TABLET BY MOUTH THREE TIMES DAILY NEEDED (Appended: Controlled substance eRx refill - RxReferenceNumber: [id number]|1|0|1) Effexor XR 150 mg capsule,extended release RxNorm: 181340 Capsule(s) PO 03/13/2012 03/15/2013 Inactive TAKE 1 CAPSULE BY MOUTH TWICE DAILY fluconazole 150 mg tablet RxNorm: 963259 1 Tablet(s) PO daily 03/11/2012 03/17/2012 Inactive Lipitor 20 mg tablet RxNorm: 334323 Tablet(s) PO 02/25/2012 03/20/2013 Inactive TAKE ONE TABLET BY MOUTH EVERY NIGHT AT BEDTIME Seroquel 100 mg tablet RxNorm: 602021 1 Tablet(s) PO BID 201102/18/2013 Inactive TAKE 1 TABLET BY MOUTH TWICE DAILY hydrocodone-acetaminophen 10 mg-325 mg tablet RxNorm: 4308819 Tablet(s) PO 02/25/2012 04/11/2012 Inactive TAKE 1 TABLET BY MOUTH FOUR TIMES DAILY . (Appended : Controlled substance eRx refill - RxReferenceNumber: [id number]|1|0|1) Seroquel 100 mg tablet RxNorm: 378135 1 Tablet(s) PO BID 201102/24/2012 Inactive TAKE 1 TABLET BY MOUTH TWICE DAILY Nexium 40 mg capsule,delayed release RxNorm: 241608 1 Capsule(s) PO daily 02/16/2012 06/13/2012 Inactive Effexor XR 150 mg capsule,extended release RxNorm: 773473 Capsule(s) PO 01/14/2012 11/05/2016 Inactive TAKE 1 CAPSULE BY MOUTH TWICE DAILY Kenalog 40 mg/mL Susp for Injection RxNorm: 4816959 1 Milliliter(s) Inj 01/13/2012 01/13/2012 Inactive Vitamin B-12 1,000 mcg/mL Injection RxNorm: 712448 Milliliter(s) Inj 12/21/2011 12/21/2011 Inactive hydrocodone-acetaminophen 10 mg-325 mg tablet RxNorm: 2507950 Tablet(s) PO 12/15/2011 02/25/2012 Inactive TAKE 1 TABLET BY MOUTH FOUR TIMES DAILY (Appended: Controlled substance eRx refill - RxReferenceNumber: [id number]|1|0|1) diazepam 10 mg tablet RxNorm: 773209 Tablet(s) PO 12/15/2011 03/17/2012 Inactive TAKE 1 TABLET BY MOUTH THREE TIMES DAILY NEEDED (Appended: Controlled substance eRx refill - RxReferenceNumber: [id number]|1|0|1) diazepam 10 mg Tab RxNorm: 778771 1 Tablet(s) PO daily 201112/15/2011 Inactive TAKE 1 TABLET BY MOUTH THREE TIMES DAILY (Appended: Controlled substance eRx refill - RxReferenceNumber: [id number]|1|0|1) hydrocodone-acetaminophen 10 mg-325 mg Tab RxNorm: 2471861 1 Tablet(s) PO QID 12/14/2011 12/15/2011 Inactive TAKE 1 TABLET BY MOUTH FOUR TIMES DAILY (Appended: Controlled substance eRx refill - RxReferenceNumber: [id number]|1|0|1) Seroquel 100 mg tablet RxNorm: 726245 Tablet(s) PO 11/27/2011 03/15/2013 Inactive TAKE 1 TABLET BY MOUTH TWICE DAILY hydrocodone-acetaminophen 10 mg-325 mg Tab RxNorm: 0572721 1 Tablet(s) PO QID 11/27/2011 12/13/2011 Inactive TAKE 1 TABLET BY MOUTH FOUR TIMES DAILY (Appended: Controlled substance eRx refill - RxReferenceNumber: [id number]|1|0|1) Seroquel 100 mg Tab RxNorm: 289819 1 Tablet(s) PO BID 201111/26/2011 Inactive Seroquel 100 mg tablet RxNorm: 882585 Tablet(s) PO 11/27/2011 02/16/2012 Inactive TAKE 1 TABLET BY MOUTH TWICE DAILY Nexium 40 mg capsule,delayed release RxNorm: 864445 1 Capsule(s) PO daily 11/16/2011 02/15/2012 Inactive cyanocobalamin (vitamin B-12) 1,000 mcg/mL Injection RxNorm: 332234 1 Milliliter(s ) Inj 10/30/2011 10/30/2011 Inactive hydrocodone-acetaminophen 10 mg-325 mg Tab RxNorm: 6658283 1 Tablet(s) PO QID 10/13/2011 11/23/2011 Inactive TAKE 1 TABLET BY MOUTH FOUR TIMES DAILY (Appended: Controlled substance eRx refill - RxReferenceNumber: [id number]|1|0|1) Effexor XR 150 mg capsule,extended release RxNorm: 624365 1 Capsule(s) PO BID 10/12/2011 01/09/2012 Inactive Fish Oil 1,000 mg Cap RxNorm: 1 Capsule(s) PO QID 10/02/2011 No Stop Date Active Vitamin B-12 1,000 mcg/mL Injection RxNorm: 425108 Milliliter(s) Inj 10/02/2011 10/02/2011 Inactive Kenalog 40 mg/mL Susp for Injection RxNorm: 2063479 Milliliter(s) Inj 10/02/2011 10/02/2011 Inactive diazepam 10 mg Tab RxNorm: 913076 1 Tablet(s) PO daily 201112/13/2011 Inactive TAKE 1 TABLET BY MOUTH THREE TIMES DAILY (Appended: Controlled substance eRx refill - RxReferenceNumber: [id number]|1|0|1) Vitamin B-12 1,000 mcg/mL Injection RxNorm: 256511 Milliliter(s) Inj 09/01/2011 09/01/2011 Inactive hydrocodone-acetaminophen 10 mg-325 mg Tab RxNorm: 0526548 1 Tablet(s) PO QID 08/25/2011 10/05/2011 Inactive TAKE 1 TABLET BY MOUTH FOUR TIMES DAILY (Appended: Controlled substance eRx refill - RxReferenceNumber: [id number]|1|0|1) diazepam 10 mg Tab RxNorm: 873798 Tablet(s) PO 08/10/2011 No Stop Date Active TAKE 1 TABLET BY MOUTH THREE TIMES DAILY (Appended: Controlled substance eRx refill - RxReferenceNumber: [id number]|1|0|1) Vitamin B-12 1,000 mcg/mL Injection RxNorm: 184597 Milliliter(s) Inj 08/03/2011 08/03/2011 Inactive fluticasone 50 mcg/actuation Nasal [place], Susp RxNorm: 2007581 2 [place] NASAL BID 07/27/2011 08/19/2012 Inactive hydrocodone-acetaminophen 10 mg-325 mg Tab RxNorm: 8635033 Tablet(s) PO 07/09/2011 08/24/2011 Inactive TAKE 1 TABLET BY MOUTH FOUR TIMES DAILY (Appended: Controlled substance eRx refill - RxReferenceNumber: [id number]|1|0|1) diazepam 10 mg Tab RxNorm: 338290 Tablet(s) PO 07/09/2011 08/09/2011 Inactive TAKE 1 TABLET BY MOUTH THREE TIMES DAILY (Appended: Controlled substance eRx refill - RxReferenceNumber: [id number]|1|0|1) diazepam 10 mg Tab RxNorm: 268968 Tablet(s) PO 07/08/2011 07/08/2011 Inactive TAKE 1 TABLET BY MOUTH THREE TIMES DAILY (Appended: Controlled substance eRx refill - RxReferenceNumber: [id number]|1|0|1) hydrocodone-acetaminophen 10 mg-325 mg Tab RxNorm: 1121598 Tablet(s) PO 07/08/2011 07/08/2011 Inactive TAKE 1 TABLET BY MOUTH FOUR TIMES DAILY (Appended: Controlled substance eRx refill - RxReferenceNumber: [id number]|1|0|1) cyclobenzaprine 10 mg tablet RxNorm: 604260 Tablet(s) PO 201109/01/2012 Inactive TAKE ONE TABLET BY MOUTH THREE TIMES DAILY Lipitor 40 mg Tab RxNorm: 432013 1 Tablet(s) PO daily 201106/16/2011 Inactive Lipitor 40 mg Tab RxNorm: 938032 1 Tablet(s) PO daily 201106/10/2012 Inactive trazodone 100 mg tablet RxNorm: 663587 Tablet(s) PO 06/02/2011 06/05/2012 Inactive TAKE 2 TABLETS BY MOUTH EVERY NIGHT AT BEDTIME diazepam 10 mg Tab RxNorm: 634321 Tablet(s) PO 05/28/2011 05/29/2011 Inactive TAKE 1 TABLET BY MOUTH THREE TIMES DAILY (Appended: Controlled substance eRx refill - RxReferenceNumber: [id number]|1|0|1) diazepam 10 mg Tab RxNorm: 874097 Tablet(s) PO 05/28/2011 07/08/2011 Inactive TAKE 1 TABLET BY MOUTH THREE TIMES DAILY (Appended: Controlled substance eRx refill - RxReferenceNumber: [id number]|1|0|1) hydrocodone-acetaminophen 10 mg-325 mg Tab RxNorm: 7238629 1 Tablet(s) PO QID 05/26/2011 07/08/2011 Inactive metoprolol tartrate 25 mg tablet RxNorm: 746692 Tablet(s) PO 04/10/2012 Inactive TAKE 1/2 TABLET BY MOUTH TWICE DAILY Savella 100 mg tablet RxNorm: 849697 Tablet(s) PO 05/14/2011 10/13/2012 Inactive TAKE 1 TABLET BY MOUTH DAILY Influenza Virus Vaccine 0.5 mL RxNorm: IM 02/23/2011 02/23/2011 Inactive B12 1000 mcg RxNorm: IM 02/23/20112010 Inactive hydrocodone-acetaminophen 10 mg-325 mg Tab RxNorm: 9120437 1 Tablet(s) PO QID 01/29/2011 01/28/2011 Inactive Restasis 0.05 % eye drops in a dropperette RxNorm: 183454 1 OPH BID No Start Date Active vitamin A-vit C-vit E-zinc-Se Tab RxNorm: 1 Tablet(s) PO daily No Start Date Active garlic extract Oral RxNorm: Oral No Start Date Active Acidophilus Tab RxNorm : 2 Tablet(s) PO QHS No Start Date Active Cranberry Concentrate Cap RxNorm: 1 Capsule(s) PO BID No Start Date Active Xopenex 1.25 mg/3 mL Neb Solution RxNorm: 586995 1 Milliliter(s) INH TID No Start Date Active niacin ER 500 mg Tab RxNorm: 272090 2 Tablet(s) PO HS No Start Date Active SenokotXTRA 17.2 mg Tab RxNorm: 3639759 Oral No Start Date Active Lotemax 0.5 % eye ointment RxNorm: 4462610 1 OPH QHS No Start Date Active prednisone 10 mg tablet RxNorm: 923302 Tablet(s) PO taper. 6-5-4-3-2-1 # 21 No Start Date Active Gaviscon Extra Strength Oral RxNorm: Oral No Start Date Active melatonin 3 mg Tab RxNorm: 545215 1 Tablet(s) PO QHS No Start Date Active Voltaren 1 % Topical Gel RxNorm: 966497 4 Gram(s) TOP QID No Start Date Active Vitamin D 1,000 unit Cap RxNorm: 844987 1 Capsule(s) PO QHS No Start Date Active Mucinex DM 30 mg-600 mg 12 hr Tab RxNorm: 4587991 1 Tablet(s) PO BID No Start Date Active calcium citrate 200 mg (950 mg) Tab RxNorm: 888905 1 Tablet(s) PO QID No Start Date Active valerian 530 mg Cap RxNorm: 2 Capsule(s) PO QHS No Start Date Active Anucort-HC 25 mg Suppository RxNorm: 2322655 1 Suppository RTL QDAY PRN No Start Date 01/14/2014 Inactive Nexium 40 mg Capsule, delayed release RxNorm: 924527 1 Capsule(s) PO daily No Start Date 11/15/2011 Inactive Lipitor 20 mg tablet RxNorm: 162992 1 Tablet(s) PO QHS No Start Date 02/25/2012 Inactive mupirocin 2 % topical ointment RxNorm: 938262 1 Application TOP PRN No Start Date 10/16/2013 Inactive fluconazole 150 mg tablet RxNorm: 005348 1 Tablet(s) PO daily No Start Date 03/10/2012 Inactive Fish Oil 1,000 mg Cap RxNorm: 1 Capsule(s) PO TID No Start Date 10/01/2011 Inactive hydrocodone-acetaminophen 10 mg-325 mg Tab RxNorm: 1378366 1 Tablet(s) PO QID No Start Date 05/25/2011 Inactive Zithromax 250 mg tablet RxNorm: 308330 Tablet(s) PO No Start Date 07/20/2012 Inactive please give z lauro fluticasone 50 mcg/actuation Nasal [place], Susp RxNorm: 9532131 2 [place] NASAL BID No Start Date 07/26/2011 Inactive Seroquel 100 mg Tab RxNorm: 463712 1 Tablet(s) PO BID No Start Date 11/26/2011 Inactive nystatin 100,000 unit/gram topical powder RxNorm: 450007 1 Application TOP QID until healed No Start Date 10/26/2016 Inactive Savella 100 mg Tab RxNorm: 093404 1 Tablet(s) PO daily No Start Date 05/13/2011 Inactive cyclobenzaprine 10 mg Tab RxNorm: 440241 1 Tablet(s) PO TID No Start Date 07/05/2011 Inactive metoprolol tartrate 25 mg Tab RxNorm: 214751 1/2 Tablet(s) PO BID No Start Date 05/25/2011 Inactive trazodone 100 mg Tab RxNorm: 380171 2 Tablet(s) PO QHS No Start Date 06/01/2011 Inactive Zithromax Z-Lauro 250 mg tablet RxNorm: 379065 1 Tablet(s) PO UD No Start Date 07/11/2015 Inactive z lauro Effexor XR 150 mg 24 hr Cap RxNorm: 775068 1 Capsule(s) PO BID No Start Date 10/11/2011 Inactive diazepam 10 mg Tab RxNorm: 033907 1 Tablet(s) PO TID No Start Date 05/28/2011 Inactive tramadol 50 mg tablet RxNorm: 922214 1-2 Tablet(s) PO Q6 as needed No Start Date 05/28/2015 Inactive Medication Administered Medication Codes Instructions Start Date Status cyanocobalamin (vit B-12) 1,000 mcg/mL injection solution RxNorm: 333299 1Milliliter 07/06/2017 Active cyanocobalamin (vit B-12) 1,000 mcg/mL injection solution RxNorm: 273052 1Milliliter 04/27/2017 No longer Active cyanocobalamin (vit B-12) 1,000 mcg/mL injection solution RxNorm: 350672 1Milliliter 11/17/2016 No longer Active cyanocobalamin (vit B-12) 1,000 mcg/mL injection solution RxNorm: 000326 1Milliliter 10/12/2016 No longer Active cyanocobalamin (vit B-12) 1,000 mcg/mL injection solution RxNorm: 057292 1Milliliter 09/11/2016 No longer Active cyanocobalamin (vit B-12) 1,000 mcg/mL injection solution RxNorm: 915668 Milliliter 07/03/2016 No longer Active cyanocobalamin (vit B-12) 1,000 mcg/mL injection solution RxNorm: 773312 1Milliliter 04/20/2016 No longer Active cyanocobalamin (vit B-12) 1,000 mcg/mL injection solution RxNorm: 714989 Milliliter 02/13/2016 No longer Active cyanocobalamin (vit B-12) 1,000 mcg/mL injection solution RxNorm: 723596 1Milliliter 12/02/2015 No longer Active cyanocobalamin (vit B-12) 1,000 mcg/mL injection solution RxNorm: 777101 1Milliliter 10/29/2015 No longer Active cyanocobalamin (vit B-12) 1,000 mcg/mL injection solution RxNorm: 098555 Milliliter 06/10/2015 No longer Active cyanocobalamin (vit B-12) 1,000 mcg/mL injection solution RxNorm: 071533 Milliliter 02/15/2014 No longer Active cyanocobalamin (vit B-12) 1,000 mcg/mL injection kit RxNorm : 502282 1Milliliter 01/15/2014 No longer Active Kenalog 40 mg/mL suspension for injection RxNorm: 7751044 1Milliliter 01/15/2014 No longer Active cyanocobalamin (vit B-12) 1,000 mcg/mL injection solution RxNorm: 970898 1Milliliter 12/04/2013 No longer Active Vitamin B-12 1,000 mcg/mL injection solution RxNorm: 753002 Milliliter 07/24/2013 No longer Active Vitamin B-12 1,000 mcg/mL injection solution RxNorm: 592123 1Milliliter 05/10/2013 No longer Active Kenalog 40 mg/mL Susp for Injection RxNorm: 5707169 Milliliter 03/06/2013 No longer Active cyanocobalamin (vitamin B-12) 1,000 mcg/mL Injection RxNorm : 444124 Milliliter 02/20/2013 No longer Active Kenalog 40 mg/mL Susp for Injection RxNorm: 6818106 Milliliter 12/26/2012 No longer Active cyanocobalamin (vitamin B-12) 1,000 mcg/mL Injection RxNorm : 704642 Milliliter 12/21/2012 No longer Active Vitamin B-12 1,000 mcg/mL Injection RxNorm: 403168 1Milliliter 11/16/2012 No longer Active Tubersol 5 tub. unit/0.1 mL Intradermal RxNorm: 689418 Milliliter 09/26/2012 No longer Active cyanocobalamin (vitamin B-12) 1,000 mcg/mL Injection RxNorm : 378749 1Milliliter 09/12/2012 No longer Active Kenalog 40 mg/mL Susp for Injection RxNorm: 1258009 1Milliliter 08/11/2012 No longer Active Vitamin B-12 1,000 mcg/mL Injection RxNorm: 996092 1Milliliter 08/11/2012 No longer Active Vitamin B-12 1,000 mcg/mL Injection RxNorm: 508509 1Milliliter 07/13/2012 No longer Active Kenalog 40 mg/mL Susp for Injection RxNorm: 9379679 1Milliliter 01/13/2012 No longer Active Vitamin B-12 1,000 mcg/mL Injection RxNorm: 125829 Milliliter 12/21/2011 No longer Active cyanocobalamin (vitamin B-12) 1,000 mcg/mL Injection RxNorm : 653015 1Milliliter 10/30/2011 No longer Active Kenalog 40 mg/mL Susp for Injection RxNorm: 3612824 Milliliter 10/02/2011 No longer Active Vitamin B-12 1,000 mcg/mL Injection RxNorm: 087417 Milliliter 10/02/2011 No longer Active Vitamin B-12 1,000 mcg/mL Injection RxNorm: 296375 Milliliter 09/01/2011 No longer Active Vitamin B-12 1,000 mcg/mL Injection RxNorm: 691259 Milliliter 08/03/2011 No longer Active Influenza Virus [...] 2011 Weight gain ICD-9: 783.1 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 10/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 Reason For Visit Reason [...] injuries from a fall (hurts after sitting " style" abdominal pain 02/12/2011 joint complaint 01/29/2011 Results Observation Observation Code Item Item Code Result Date Tsh Ord6 hTSH II 1.18 uIU/mL 10/12/2016 Comp Metabolic Vfy004 NA 139 mEq/L 10/12/2016 Comp Metabolic Uxw973 K 3.5 mEq/L 10/12/2016 Comp Metabolic Xrh674 CL 102 mEq/L 10/12/2016 Comp Metabolic Acm671 CO2 25.0 mEq/L 10/12/2016 Comp Metabolic Mjd140 ANION GAP 16 10/12/2016 Comp Metabolic Bep201 GLUCOSE 84 mg/dL 10/12/2016 Comp Metabolic Vup475 Creat 0.6 mg/dL 10/12/2016 Comp Metabolic Kbf527 eGFR 105 ml/min/1.73m2 10/12/2016 Comp Metabolic Zem822 BUN 12 mg/dL 10/12/2016 Comp Metabolic Ovh964 B/C Ratio 18.8 Ratio 10/12/2016 Comp Metabolic Jsu546 CALCIUM 9.2 mg/dL 10/12/2016 Comp Metabolic Vmy635 ALK PHOS 59 U/L 10/12/2016 Comp Metabolic Wkg494 AST(SGOT) 21 U/L 10/12/2016 Comp Metabolic Lmv720 ALT(SGPT) 27 U/L 10/12/2016 Comp Metabolic Cag140 BILI T 0.2 mg/dL 10/12/2016 Comp Metabolic Hon411 ALBUMIN 4.4 g/dL 10/12/2016 Comp Metabolic Wch914 TPRO 6.7 g/dL 10/12/2016 Comp Metabolic Tkz947 GLOB 2.3 g/dL 10/12/2016 Comp Metabolic Prg994 A/G Ratio 1.9 Ratio 10/12/2016 Comp Metabolic Mjg603 Osmo 276 mOsmo 10/12/2016 Cbc With Differential Ord2 WBC 9.77 K/ul 10/12/2016 Cbc With Differential Ord2 RBC 3.67 M/ul 10/12/2016 Cbc With Differential Ord2 HGB 12.0 g/dl 10/12/2016 Cbc With Differential Ord2 HCT 37.8 % 10/12/2016 Cbc With Differential Ord2 Neut% 58.9 % 10/12/2016 Cbc With Differential Ord2 MCV 103.0 fl 10/12/2016 Cbc With Differential Ord2 Lymph% 31.9 % 10/12/2016 Cbc With Differential Ord2 Coos% 8.0 % 10/12/2016 Cbc With Differential Ord2 [...] 3.12 K/ul 10/12/2016 Cbc With Differential Ord2 Coos ABS# 0.8 K/ul 10/12/2016 Cbc With Differential Ord2 Eos ABS# 0.1 K/ul 10/12/2016 Cbc With Differential Ord2 Baso ABS# 0.0 K/ul 10/12/2016 Lipid Ord30 CHOL 194 mg/dL 10/12/2016 Lipid Ord30 HDL 76.0 mg/dl 10/12/2016 Lipid Ord30 TRIG 159 mg/dL 10/12/2016 Lipid Ord30 LDL 86 mg/dL 10/12/2016 Lipid Ord30 C/HDL 2.6 Ratio 10/12/2016 Comp Metabolic Ldn000 NA 139 mEq/L 09/11/2016 Comp Metabolic Dzn742 K 3.6 mEq/L 09/11/2016 Comp Metabolic Rgy565 CL 102 mEq/L 09/11/2016 Comp Metabolic Msl713 CO2 26.0 mEq/L 09/11/2016 Comp Metabolic Xkb992 ANION GAP 15 09/11/2016 Comp Metabolic Cik262 GLUCOSE 90 mg/dL 09/11/2016 Comp Metabolic Gqh086 Creat 0.6 mg/dL 09/11/2016 Comp Metabolic Syw159 eGFR 111 ml/min/1.73m2 09/11/2016 Comp Metabolic Uzg160 BUN 14 mg/dL 09/11/2016 Comp Metabolic Hqj461 B/C Ratio 23.0 Ratio 09/11/2016 Comp Metabolic Hza649 CALCIUM 9.0 mg/dL 09/11/2016 Comp Metabolic Zfy416 ALK PHOS 56 U/L 09/11/2016 Comp Metabolic Ugj767 AST(SGOT) 21 U/L 09/11/2016 Comp Metabolic Wcf863 ALT(SGPT) 17 U/L 09/11/2016 Comp Metabolic Ome839 BILI T 0.2 mg/dL 09/11/2016 Comp Metabolic Vfn947 ALBUMIN 4.1 g/dL 09/11/2016 Comp Metabolic Txm011 TPRO 6.5 g/dL 09/11/2016 Comp Metabolic Usq361 GLOB 2.4 g/dL 09/11/2016 Comp Metabolic Mym897 A/G Ratio 1.7 Ratio 09/11/2016 Comp Metabolic Iop709 Osmo 278 mOsmo 09/11/2016 Tsh Ord6 hTSH [...] 33.0 pg 09/11/2016 Cbc With Differential Ord2 Coos% 8.6 % 09/11/2016 Cbc With Differential Ord2 Eos% 1.3 % 09/11/2016 Cbc With Differential Ord2 MCHC 32.0 pg 09/11/2016 Cbc With Differential Ord2 PLT 246 K/ul 09/11/2016 Cbc With Differential Ord2 Baso% 0.1 % 09/11/2016 Cbc With Differential Ord2 RDW 13.3 % 09/11/2016 Cbc With Differential Ord2 Neut ABS# 6.66 K/ul 09/11/2016 Cbc With Differential Ord2 Lymph ABS# 3.35 K/ul 09/11/2016 Cbc With Differential Ord2 Coos ABS# 1.0 K/ul 09/11/2016 Cbc With Differential Ord2 Eos ABS# 0.1 K/ul 09/11/2016 Cbc With Differential Ord2 Baso ABS# 0.0 K/ul 09/11/2016 Lipid Ord30 CHOL 168 mg/dL 09/11/2016 Lipid Ord30 HDL 74.0 mg/dl 09/11/2016 Lipid Ord30 TRIG 167 mg/dL 09/11/2016 Lipid Ord30 LDL 61 mg/dL 09/11/2016 Lipid Ord30 C/HDL 2.3 Ratio 09/11/2016 B12 Zsw905 B12 474.00 pg/ml 09/11/2016 B12 Xyr700 B12 827.00 pg/ml 03/02/2016 Cbc With Differential [...] 34.0 pg 02/28/2016 Cbc With Differential Ord2 Coos% 5.4 % 02/28/2016 Cbc With Differential Ord2 [...] 2.08 K/ul 02/28/2016 Cbc With Differential Ord2 Coos ABS# 0.3 K/ul 02/28/2016 Cbc With Differential Ord2 Eos ABS# 0.1 K/ul 02/28/2016 Cbc With Differential Ord2 Baso ABS# 0.0 K/ul 02/28/2016 Sed Rate Ord21 ESR 5 mm/hr 02/28/2016 C-Reactive Protein Qnt Crqnt CRP 0.1 mg/dl 02/28/2016 Comp Metabolic Xjk214 NA 136 mEq/L 02/28/2016 Comp Metabolic Zwg249 K 4.0 mEq/L 02/28/2016 Comp Metabolic Krn017 CL 103 mEq/L 02/28/2016 Comp Metabolic Kzm242 CO2 27.0 mEq/L 02/28/2016 Comp Metabolic Hkf973 ANION GAP 10 02/28/2016 Comp Metabolic Xjr343 GLUCOSE 138 mg/dL 02/28/2016 Comp Metabolic Lla552 Creat 0.6 mg/dL 02/28/2016 Comp Metabolic Dkw907 eGFR 120 ml/min/1.73m2 02/28/2016 Comp Metabolic Sqb625 BUN 15 mg/dL 02/28/2016 Comp Metabolic Gzn557 B/C Ratio 26.3 Ratio 02/28/2016 Comp Metabolic Twi251 CALCIUM 8.8 mg/dL 02/28/2016 Comp Metabolic Onu583 ALK PHOS 58 U/L 02/28/2016 Comp Metabolic Xzj923 AST(SGOT) 21 U/L 02/28/2016 Comp Metabolic Ery092 ALT(SGPT) 21 U/L 02/28/2016 Comp Metabolic Uqk145 BILI T 0.2 mg/dL 02/28/2016 Comp Metabolic Phj300 ALBUMIN 3.8 g/dL 02/28/2016 Comp Metabolic Vjz735 TPRO 5.7 g/dL 02/28/2016 Comp Metabolic Yfw400 GLOB 1.9 g/dL 02/28/2016 Comp Metabolic Upx707 A/G Ratio 2.0 Ratio 02/28/2016 Comp Metabolic Aif173 Osmo 275 mOsmo 02/28/2016 Tsh Ord6 hTSH II 1.25 uIU/mL 02/28/2016 B12 Hzl858 B12 >1500.00 pg/ml 01/11/2016 Vitamin D 25 Oh Xuv2655 VITAMIN D, 25 HYDROXY 45.94 ng/mL Comp Metabolic Hfe683 NA 136 mEq/L 03/21/2015 Comp Metabolic Xlr772 K 3.8 mEq/L 03/21/2015 Comp Metabolic Buu304 CL 101 mEq/L 03/21/2015 Comp Metabolic Jop462 CO2 31.0 mEq/L 03/21/2015 Comp Metabolic Sqs866 ANION GAP 8 03/21/2015 Comp Metabolic Aov548 GLUCOSE 101 mg/dL 03/21/2015 Comp Metabolic Ume663 Creat 0.7 mg/dL 03/21/2015 Comp Metabolic Nfj558 eGFR 94 ml/min/1.73m2 03/21/2015 Comp Metabolic Lsz875 BUN 13 mg/dL 03/21/2015 Comp Metabolic Eug655 B/C Ratio 18.3 Ratio 03/21/2015 Comp Metabolic Qui174 CALCIUM 9.3 mg/dL 03/21/2015 Comp Metabolic Gxd546 ALK PHOS 58 U/L 03/21/2015 Comp Metabolic Upo170 AST(SGOT) 18 U/L 03/21/2015 Comp Metabolic Zsc906 ALT(SGPT) 22 U/L 03/21/2015 Comp Metabolic Jyh260 BILI T 0.3 mg/dL 03/21/2015 Comp Metabolic Gwa118 ALBUMIN 4.4 g/dL 03/21/2015 Comp Metabolic Kak549 TPRO 6.7 g/dL 03/21/2015 Comp Metabolic Dzq043 GLOB 2.3 g/dL 03/21/2015 Comp Metabolic Get610 A/G Ratio 1.9 Ratio 03/21/2015 Comp Metabolic Cob973 Osmo 272 mOsmo 03/21/2015 %Hba1C Qiu171 % HbA1c 63212-2 5.4 % 03/21/2015 %Hba1C Glw889 Gluc Ave 108 mg/dL 03/21/2015 Cbc With [...] 1.32 uIU/mL 03/21/2015 URINALYSIS NONAUTO W/O SCOPE 89778 Specific Warren 1.025 DateTime(Free Text in Aprima) URINALYSIS NONAUTO W/O SCOPE 29149 PH 5.0 DateTime(Free Text in Aprima) URINALYSIS NONAUTO W/O SCOPE 23678 GLUCOSE NEG DateTime( Free Text in Aprima) URINALYSIS NONAUTO W/O SCOPE 51641 Protein NEG DateTime( Free Text in Aprima) URINALYSIS NONAUTO W/O SCOPE 55682 Blood NEG DateTime(Free Text in Aprima) URINALYSIS NONAUTO W/O SCOPE 50114 Bilirubin NEG DateTime(Free Text in Aprima) URINALYSIS NONAUTO W/O SCOPE 85427 Ketones NEG DateTime( Free Text in Aprima) URINALYSIS NONAUTO W/O SCOPE 51083 Urobilinogen NEG DateTime(Free Text in Aprima) URINALYSIS NONAUTO W/O SCOPE 58698 Nitrite NEG DateTime( Free Text in Aprima) URINALYSIS NONAUTO W/O SCOPE 51056 Leukocytes NEG DateTime(Free Text in Aprima) Review [...] clear 03/26/2015 None Full Exam - General 1995 Ears/Nose/Throat [...] age 0712/26/2012 None Full Exam - General 1994 Ears/Nose/Throat [...] 1995 Ears/Nose/Throat oral cavity/pharynx/larynx Overall: no masses 12/26/2012 None Full Exam - General 1995 Respiratory auscultation Overall: breath sounds clear bilaterally 12/26/2012 None Full Exam - General 1995 Respiratory respiratory effort/rhythm Overall: no retractions 12/26/2012 None Full Exam - General 1995 Respiratory respiratory effort/rhythm Overall: normal rate 12/26/2012 [...] benign 12/26/2012 None Full Exam - General 1995 Musculoskeletal upper extremity Overall: normal shoulder 12/26/2012 None Full Exam - General 1995 Musculoskeletal upper extremity Overall: normal elbow 12/26/2012 None Full Exam - General 1995 Musculoskeletal upper extremity Overall: normal wrist 12/26/2012 None Full Exam - General 1995 Musculoskeletal lower extremity Overall: knee benign 12/26/2012 [...] benign 11/21/2012 None Full Exam - General 1994 [...] crackles 07/21/2012 None Full Exam - General 1994 Ears/Nose/Throat otoscopic exam Overall: external auditory canals clear 07/21/2012 None Full Exam - General 1994 Ears/Nose/Throat otoscopic exam Overall: tympanic membranes clear 07/21/2012 None Full Exam - General 1994 Eyes conjunctiva /eyelids Overall: conjunctiva clear 07/21/2012 None Full Exam - General 1995 Constitutional general appearance Overall: well developed 07/13/2012 [...] rate 07/13/2012 None Full Exam - General 1995 Cardiovascular [...] tenderness 02/15/2012 None Full Exam - General 1994 Abdomen abdominal exam Overall: normal bowel sounds 02/15/2012 None Full Exam - General 1994 Musculoskeletal gait and station Overall: normal gait 02/15/2012 None Full Exam - General 1994 [...] mass 02/15/2012 None Full Exam - General 1995 Chest/Breast breast and axillae palpation Lower outer [...] accomodation 02/15/2012 None Full Exam - General 1995 Ears/Nose/Throat oral cavity/pharynx/larynx Overall: oral mucosa clear 02/15/2012 None Full Exam - General 1995 Ears/Nose/Throat oral cavity/pharynx/larynx Overall: oropharyngeal mucosa clear 02/15/2012 None Full Exam - General 1995 Ears/Nose/Throat oral cavity/pharynx/larynx Overall: no masses 02/15/2012 [...] nourished 01/13/2012 None Full Exam - General 1994 Constitutional general appearance Overall: well developed 01/13/2012 None Full Exam - General 1994 Constitutional general appearance Overall: in no acute distress 01/13/2012 None Full Exam - General 1994 Eyes pupils and irises Overall: pupils equal, round, reactive to light and accomodation 01/13/2012 None Full Exam - General 1994 Ears/Nose/Throat oral cavity/pharynx/larynx Overall: oral mucosa clear 01/13/2012 None Full Exam - General 1995 Ears/Nose/Throat oral cavity/pharynx/larynx Overall: oropharyngeal mucosa clear 01/13/2012 None Full Exam - General 1994 Ears/Nose/Throat oral cavity/pharynx/larynx Overall: no masses 01/13/2012 None Full Exam - General 1995 Respiratory auscultation Overall: breath sounds clear bilaterally 01/13/2012 None Full Exam - General 1994 Respiratory respiratory effort/rhythm Overall: no retractions 01/13/2012 None Full Exam - General 1995 Respiratory respiratory effort/rhythm Overall: normal rate 01/13/2012 None Full Exam - General 1995 Cardiovascular auscultation of heart Overall: regular rate 01/13/2012 None Full Exam - General 1994 Cardiovascular auscultation of heart Overall: normal heart sounds 01/13/2012 None Full Exam - General 1994 Cardiovascular auscultation of heart Overall: no murmurs 01/13/2012 None Full Exam - General 1995 Abdomen abdominal exam Overall: no tenderness 01/13/2012 None Full Exam - General 1995 Abdomen [...] exam 09/01/2011 None Full Exam - General 1995 Musculoskeletal [...] tenderness 08/03/2011 None Full Exam - General 1994 [...] tenderness 06/29/2011 None Full Exam - General 1995 Abdomen [...] clear 06/29/2011 None Full Exam - General 1995 Ears/Nose/Throat oral cavity/pharynx/larynx Overall: oropharyngeal mucosa clear 06/29/2011 None Full Exam - General 1995 Ears/Nose/Throat oral cavity/pharynx/larynx Overall: no masses 06/29/2011 [...] murmurs 06/22/2011 None Full Exam - General 1994 Abdomen abdominal exam Overall: no tenderness 06/22/2011 None Full Exam - General 1994 Abdomen [...] clear 06/22/2011 None Full Exam - General 1994 Ears/Nose/Throat oral cavity/pharynx/larynx Overall: no masses 06/22/2011 [...] bilaterally 06/11/2011 None Full Exam - General 1994 Ears/Nose/Throat oral cavity/pharynx/larynx Overall: oropharyngeal mucosa clear 06/11/2011 None Full Exam - General 1994 Ears/Nose/Throat oral cavity/pharynx/larynx Overall: no masses 06/11/2011 None Full Exam - General 1994 Ears/Nose/Throat oral cavity/pharynx/larynx Overall: oral mucosa clear 06/11/2011 None Full Exam - General 1994 Abdomen abdominal exam Overall: no tenderness 06/11/2011 None Full Exam - General 1994 Psychiatric orientation/consciousness Overall: oriented to person, place and time 06/11/2011 None Full Exam - General 1995 Psychiatric mood and affect Overall: normal mood and affect 06/11/2011 None Full Exam - General 1995 Musculoskeletal head and neck Overall: cervical spine benign 06/11/2011 None Full Exam - General 1994 Musculoskeletal head and neck Overall: head atraumatic 06/11/2011 None Full Exam - General 1995 Musculoskeletal gait and station Overall: normal gait 06/11/2011 None Full Exam - General 1994 Abdomen abdominal exam Overall: normal bowel sounds 06/11/2011 None Full Exam - General 1994 Musculoskeletal gait and station Overall: normal station 06/11/2011 None Full Exam - General 1995 Musculoskeletal lower extremity Overall: knee benign 06/11/2011 None Full Exam - General 1995 Musculoskeletal upper extremity Overall: normal shoulder 06/11/2011 [...] Procedure Codes Date THER/PROPH/DIAG INJ SC/IM CPT-4: 85613 07/06/2017 VITAMIN B12 INJECTION CPT-4: J3420 07/06/2017 THER/PROPH/DIAG INJ SC/IM CPT-4: 61205 04/27/2017 VITAMIN B12 INJECTION CPT-4: J3420 04/27/2017 THER/PROPH/DIAG INJ SC/IM CPT-4: 71424 11/17/2016 VITAMIN B12 INJECTION CPT-4: J3420 11/17/2016 THER/PROPH/DIAG INJ SC/IM CPT-4: 46047 10/12/2016 VITAMIN B12 INJECTION CPT-4: J3420 10/12/2016 THER/PROPH/DIAG INJ SC/IM CPT-4: 24637 09/11/2016 VITAMIN B12 INJECTION CPT-4: J3420 09/11/2016 THER/PROPH/DIAG INJ SC/IM CPT-4: 86600 07/03/2016 VITAMIN B12 INJECTION CPT-4: J3420 07/03/2016 VITAMIN B12 INJECTION CPT-4: J3420 04/20/2016 THER/PROPH/DIAG INJ SC/IM CPT-4: 24075 04/20/2016 ADMIN INFLUENZA VIRUS VAC CPT-4: G0008 03/17/2016 IIV4 FLU VACC NO PRESERV ID Formatting Model/CDA Sections, Assigned to/Kathy Lopez SNOMED CT: [id number] CPT-4: 44046Gifesbf 03/17/2016 THER/PROPH/DIAG INJ SC/IM CPT-4: 21346 02/13/2016 VITAMIN B12 INJECTION CPT-4: J3420 02/13/2016 URINALYSIS NONAUTO W/O SCOPE CPT-4: 38409 12/10/2015 THER/PROPH/DIAG INJ SC/IM CPT-4: 69293 12/02/2015 VITAMIN B12 INJECTION CPT-4: J3420 12/02/2015 PNEUMOCOCCAL VACC [address]: [id number] CPT-4: 64022 12/02/2015 IMMUNIZATION ADMIN CPT -4: 12895 12/02/2015 THER/PROPH/DIAG INJ SC/IM CPT-4: 15505 10/29/2015 VITAMIN B12 INJECTION CPT-4: J3420 10/29/2015 THER/PROPH/DIAG INJ SC/IM CPT-4: 31199 06/10/2015 VITAMIN B12 INJECTION CPT-4: J3420 06/10/2015 THER/PROPH/DIAG INJ SC/IM CPT-4: 89869 02/15/2014 VITAMIN B12 INJECTION CPT-4: J3420 02/15/2014 TRIAMCINOLONE ACET INJ NOS CPT-4: J3301 01/15/2014 VITAMIN B12 INJECTION CPT-4: J3420 01/15/2014 THER/PROPH/DIAG INJ SC/IM CPT-4: 03548 12/04/2013 VITAMIN B12 INJECTION CPT-4: J3420 12/04/2013 THER/PROPH/DIAG INJ SC/IM CPT-4: 63076 07/24/2013 VITAMIN B12 INJECTION CPT-4: J3420 07/24/2013 PRESCRIP TRANSMIT VIA ERX SY CPT-4: G8553 06/12/2013 VITAMIN B12 INJECTION CPT-4: J3420 05/10/2013 THER/PROPH/DIAG INJ SC/IM CPT-4: 34980 05/10/2013 TRIAMCINOLONE ACET INJ NOS CPT-4: J3301 03/06/2013 PRESCRIP TRANSMIT VIA ERX SY CPT-4: G8553 03/06/2013 ADMIN INFLUENZA VIRUS VAC CPT-4: G0008 02/20/2013 FLULAVAL VACC, 3 YRS & >, IM CPT-4: Q2036 02/20/2013 THER/PROPH/DIAG INJ SC/IM CPT-4: 31585 02/20/2013 VITAMIN B12 INJECTION CPT-4: J3420 02/20/2013 THER/PROPH/DIAG INJ SC/IM CPT-4: 53775 12/26/2012 TRIAMCINOLONE ACET INJ NOS CPT-4: J3301 12/26/2012 THER/PROPH/DIAG INJ SC/IM CPT-4: 37609 12/21/2012 VITAMIN B12 INJECTION CPT-4: J3420 12/21/2012 THER/PROPH/DIAG INJ SC/IM CPT-4: 99706 11/16/2012 VITAMIN B12 INJECTION CPT-4: J3420 11/16/2012 TB INTRADERMAL TEST (includes injection fee) CPT-4: 95904 09/26/2012 THER/PROPH/DIAG INJ SC/IM CPT-4: 69869 09/12/2012 VITAMIN B12 INJECTION CPT-4: J3420 09/12/2012 TRIAMCINOLONE ACET INJ NOS CPT-4: J3301 08/11/2012 VITAMIN B12 INJECTION CPT-4: J3420 08/11/2012 THER/PROPH/DIAG INJ SC/IM CPT-4: 64812 08/11/2012 VITAMIN B12 INJECTION CPT-4: J3420 07/13/2012 THER/PROPH/DIAG INJ SC/IM CPT-4: 25085 07/13/2012 THER/PROPH/DIAG INJ SC/IM CPT-4: 56207 05/26/2012 TRIAMCINOLONE ACET INJ NOS CPT-4: J3301 05/26/2012 VITAMIN B12 INJECTION CPT-4: J3420 05/26/2012 ADMIN INFLUENZA VIRUS VAC CPT-4: G0008 03/02/2012 FLULAVAL VACC, 3 YRS & >, IM CPT-4: Q2036 03/02/2012 PRESCRIP TRANSMIT VIA ERX SY CPT-4: G8553 02/15/2012 TRIAMCINOLONE ACET INJ NOS CPT-4: J3301 01/13/2012 VITAMIN B12 INJECTION CPT-4: J3420 12/21/2011 VITAMIN B12 INJECTION CPT-4: J3420 10/30/2011 THER/PROPH/DIAG INJ SC/IM CPT-4: 19335 10/30/2011 THER/PROPH/DIAG INJ SC/IM CPT-4: 94734 10/02/2011 VITAMIN B12 INJECTION CPT-4: J3420 10/02/2011 TRIAMCINOLONE ACET INJ NOS CPT-4: J3301 10/02/2011 PRESCRIP TRANSMIT VIA ERX SY CPT-4: G8553 10/02/2011 VITAMIN B12 INJECTION CPT-4: J3420 09/01/2011 URINALYSIS NONAUTO W/O SCOPE CPT-4: 04418 08/03/2011 VITAMIN B12 INJECTION CPT-4: J3420 08/03/2011 THER/PROPH/DIAG INJ SC/IM CPT-4: 85568 08/03/2011 THER/PROPH/DIAG INJ SC/IM CPT-4: 84749 06/11/2011 VITAMIN B12 INJECTION CPT-4: J3420 06/11/2011 ROUTINE VENIPUNCTURE CPT-4: 46272 06/11/2011 THER/PROPH/DIAG INJ SC/IM CPT-4: 45622 02/23/2011 VITAMIN B12 INJECTION CPT-4: J3420 02/23/2011 ADMIN INFLUENZA VIRUS VAC CPT-4: G0008 02/23/2011 FLULAVAL VACC, 3 YRS & >, IM CPT-4: Q2036 02/23/2011 Vital Signs Date Vital 07/06/2017 Blood Pressure 1: 154/80 Code : 8480-6 Heart Rate 1: 111 bpm Height: 5'9" Respiratory Rate: 20 bpm SpO2: 98% Weight: 04/27/2017 Blood Pressure 1: 138/78 Code : 8480-6 BMI: 30.4 Code : 08544-9 Heart Rate 1 : 96 bpm Height: 5'9" SpO2: 97% Weight: 206 lbs 04/06/2017 Blood Pressure 1: 108/80 Code : 8480-6 BMI: 31.0 Code : 43390-7 Heart Rate 1 : 96 bpm Height: 5'9" SpO2: 98% Weight: 210 lbs 02/25/2017 Blood Pressure 1: 132/80 Code : 8480-6 BMI: 32.5 Code : 98252-1 Heart Rate 1 : 112 bpm Height: 5'9" SpO2: 94% Weight: 220 lbs 01/19/2017 Blood Pressure 1: 122/68 Code : 8480-6 Heart Rate 1: 100 bpm Height: 5'9" SpO2: 95% Weight: 11/17/2016 Blood Pressure 1: 132/74 Code : 8480-6 BMI: 32.2 Code : 54270-9 Heart Rate 1 : 98 bpm Height: 5'9" SpO2: 94% Weight: 218 lbs 10/12/2016 Blood Pressure 1: 130/82 Code : 8480-6 BMI: 32.2 Code : 26141-0 Heart Rate 1 : 97 bpm Height: 5'9" SpO2: 94% Weight: 218 lbs 08/18/2016 Blood Pressure 1: 132/78 Code : 8480-6 BMI: 32.0 Code : 91371-5 Heart Rate 1 : 113 bpm Height: 5'9" SpO2: 98% Weight: 217 lbs 08/07/2016 Blood Pressure 1: 126/70 Code : 8480-6 BMI: 33.1 Code : 56697-0 Heart Rate 1 : 102 bpm Height: 5'9" SpO2: 94% Weight: 224 lbs 07/31/2016 Blood Pressure 1: 134/66 Code : 8480-6 BMI: 31.7 Code : 16104-7 Heart Rate 1 : 97 bpm Height: 5'9" SpO2: 95% Temperature: 36.4 (C) / 97.6 (F) Weight: 215 lbs 07/15/2016 Blood Pressure 1: 126/62 Code : 8480-6 Heart Rate 1: 105 bpm Height: 5'9" Weight: 07/07/2016 Blood Pressure 1: 106/54 Code : 8480-6 BMI: 31.7 Code : 52495-8 Heart Rate 1 : 93 bpm Height: 5'9" SpO2: 97% Weight: 215 lbs 06/25/2016 Heart Rate 1: 99 bpm Height: 5'9" SpO2: 95% Weight: 05/07/2016 Blood Pressure 1: 124/86 Code : 8480-6 BMI: 28.5 Code : 74224-7 Heart Rate 1 : 100 bpm Height: 5'9" SpO2: 96% Weight: 193 lbs 04/20/2016 Blood Pressure 1: 120/80 Code : 8480-6 BMI: 28.5 Code : 96728-9 Heart Rate 1 : 86 bpm Height: 5'9" SpO2: 96% Weight: 193 lbs 03/17/2016 Blood Pressure 1: 120/70 Code : 8480-6 BMI: 29.1 Code : 25077-8 Heart Rate 1 : 103 bpm Height: 5'9" SpO2: 96% Weight: 197 lbs 03/05/2016 Blood Pressure 1: 124/78 Code : 8480-6 Heart Rate 1: 82 bpm Height: 5'9" SpO2: 94% Weight: 02/28/2016 Blood Pressure 1: 94/50 Code : 8480-6 Heart Rate 1: 91 bpm Height: 5'9" SpO2: 94% Weight: 02/13/2016 Blood Pressure 1: 128/86 Code : 8480-6 BMI: 28.6 Code : 18830-2 Heart Rate 1 : 100 bpm Height: 5'9" SpO2: 96% Weight: 194 lbs 08/15/2015 Blood Pressure 1: 128/68 Code : 8480-6 BMI: 27.3 Code : 89749-7 Heart Rate 1 : 72 bpm Height: 5'9" SpO2: 92% Weight: 185 lbs 07/25/2015 Blood Pressure 1: 122/76 Code : 8480-6 BMI: 27.5 Code : 41569-3 Heart Rate 1 : 70 bpm Height: 5'9" SpO2: 94% Weight: 186 lbs 06/25/2015 Blood Pressure 1: 118/54 Code : 8480-6 BMI: 26.7 Code : 58095-2 Heart Rate 1 : 98 bpm Height: 5'9" SpO2: 97% Weight: 181 lbs 06/10/2015 Blood Pressure 1: 110/68 Code : 8480-6 Heart Rate 1: 80 bpm Height: SpO2: 98% Weight: 05/08/2015 Blood Pressure 1: 120/68 Code : 8480-6 BMI: 27.5 Code : 76235-4 Heart Rate 1 : 95 bpm Height: 5'9" SpO2: 96% Weight: 186 lbs 03/26/2015 Blood Pressure 1: 120/80 Code : 8480-6 Heart Rate 1: 102 bpm Respiratory Rate: 18 bpm SpO2: 92% Weight: 186 lbs 03/15/2015 Blood Pressure 1: 122/64 Code : 8480-6 BMI: 26.6 Code : 90546-5 Heart Rate 1 : 96 bpm Height: 5'9" SpO2: 96% Weight: 180 lbs 01/10/2015 Blood Pressure 1: 120/68 Code : 8480-6 BMI: 27.5 Code : 35433-9 Heart Rate 1 : 90 bpm Height: 5'9" Weight: 186 lbs 12/21/2014 Blood Pressure 1: 118/78 Code : 8480-6 BMI: 27.2 Code : 90229-3 Heart Rate 1 : 61 bpm Height: 5'9" SpO2: 97% Weight: 184 lbs 10/05/2014 Blood Pressure 1: 118/64 Code : 8480-6 BMI: 27.0 Code : 01547-5 Heart Rate 1 : 76 bpm Height: 5'9" Weight: 183 lbs 06/14/2014 Blood Pressure 1: 120/78 Code : 8480-6 BMI: 26.6 Code : 92243-0 Heart Rate 1 : 96 bpm Height: 5'9" Weight: 180 lbs 01/19/2014 Blood Pressure 1: 128/76 Code : 8480-6 BMI: 27.3 Code : 20714-4 Heart Rate 1 : 82 bpm Height: 5'9" Weight: 185 lbs 01/15/2014 Blood Pressure 1: 110/62 Code : 8480-6 BMI: 27.9 Code : 36630-1 Heart Rate 1 : 80 bpm Height: 5'9" Weight: 189 lbs 10/20/2013 Blood Pressure 1: 112/62 Code : 8480-6 BMI: 30.1 Code : 06164-2 Heart Rate 1 : 76 bpm Height: [...] Code : 8480-6 BMI: 30.6 Code : 18607-7 Heart Rate 1 : 92 bpm Height: 5'9" Weight: 207 lbs 05/23/2013 Blood Pressure 1: 120/78 Code : 8480-6 Heart Rate 1: 84 bpm Weight: 05/19/2013 Blood Pressure 1: 126/78 Code : 8480-6 BMI: 30.3 Code : 07597-1 Heart Rate 1 : 88 bpm Height: 5'9" Weight: 205 lbs 05/16/2013 Blood Pressure 1: 126/66 Code : 8480-6 BMI: 30.3 Code : 85815-6 Heart Rate 1 : 84 bpm Height: 5'9" Weight: 205 lbs 03/06/2013 Blood Pressure 1: 128/76 Code : 8480-6 BMI: 30.6 Code : 72548-1 Heart Rate 1 : 88 bpm Height: 5'9" Weight: 207 lbs 12/26/2012 Blood Pressure 1: 142/70 Code : 8480-6 BMI: 29.6 Code : 02458-7 Heart Rate 1 : 100 bpm Height: 5'9" Weight: 200 lbs 8 oz 11/21/2012 Blood Pressure 1: 132/80 Code : 8480-6 BMI: 29.5 Code : 25067-4 Heart Rate 1 : 96 bpm Height: [...] Code : 8480-6 BMI: 29.2 Code : 99253-8 Heart Rate 1 : 64 bpm Height: 5'9" Respiratory Rate: 16 bpm Weight: 198 lbs 03/11/2011 Blood Pressure 1: 106/60 Code : 8480-6 BMI: 28.8 Code : 09161-3 Heart Rate 1 : 100 bpm Height: 5'9" SpO2: 97% Weight: 195 lbs 02/12/2011 Weight: 192 lbs 01/29/2011 Blood Pressure 1: 100/64 Code : 8480-6 BMI: 28.1 Code : 46078-5 Heart Rate 1 : 100 bpm Height: [...] Hospital Follow Up _ pain 05/16/2013 left qihq-bexg-shkim to left knee-applying neosporin and covering with [...] pt to have a study done at water purification chemist [id number] shortness of breath Triggers exertion 03/11/2011 None [...] 02/12/2011 and pt went to her chiropractor/ asset protection detective this week and was" worked on" and she has been feeling better shortness of breath Alleviating Factors rest 02/12/2011 pt states that her shortness of breath got better after her asset protection detective adjusted her pelvis gastroesophageal reflux Quality heartburn [...] data Encounters Encounter Performer Location Codes Date EST. PATIENT, LEVEL V Diagnosis: Essential (primary) hypertension[ICD10: I10] Diagnosis: Vitamin B12 deficiency anemia due to intrinsic factor deficiency[ ICD10: D51.0] Diagnosis: Chronic pain syndrome[ICD10: G89.4] Aicha Thompson MD, [facility] CPT-4: 63312 07/06/2017 ([id number]) 22296 EST. PATIENT, LEVEL IV Diagnosis: Cervicalgia[ICD10: M54.2] Diagnosis: Laceration without foreign body of scalp, initial encounter[ICD10: S01.01XA] Diagnosis: Vitamin B12 deficiency anemia due to intrinsic factor deficiency[ ICD10: D51.0] Valentina Thompson MD, [facility] CPT-4: 36076 04/27/2017 71525 EST. PATIENT, LEVEL II Diagnosis: Residual hemorrhoidal skin tags[ICD10: K64.4] Valentina Thompson MD, [facility] CPT-4: 24737 04/06/2017 ([id number]) 88790 EST. PATIENT, LEVEL III Diagnosis: Pain in right foot[ICD10: M79.671] Diagnosis: Pain in left foot[ICD10: M79.672] Diagnosis: Cervicalgia[ICD10: M54.2] Valentina Thompson MD, [facility] CPT-4: 17605 02/25/2017 ([id number]) 50971 EST. PATIENT, LEVEL IV Diagnosis: Essential (primary) hypertension[ICD10: I10] Diagnosis: Chronic pain syndrome[ICD10: G89.4] Diagnosis: Spinal stenosis, cervical region[ICD10: M48.02] Diagnosis: Pain in right leg[ICD10: M79.604] Valentina Thompson MD, [facility] CPT-4: 60221 01/19/2017 ([id number]) 29314 EST. PATIENT, LEVEL III Diagnosis: Pain in right foot[ICD10: M79.671] Diagnosis: Pain in left foot[ICD10: M79.672] Diagnosis: Chronic pain syndrome[ICD10: G89.4] Diagnosis: Vitamin B12 deficiency anemia, unspecified[ICD10: D51.9] Valentina Thompson MD , [facility] CPT-4: 25623 11/17/2016 ([id number] 93968 EST. PATIENT, LEVEL IV Diagnosis: Essential (primary) hypertension[ICD10: I10] Diagnosis: Chronic pain syndrome[ICD10: G89.4] Diagnosis: Foot drop, right foot[ICD10: M21.371] Diagnosis: Foot drop, left foot[ICD10: M21.372] Diagnosis: Other abnormalities of gait and mobility[ICD10: R26.89] Diagnosis: Vitamin B12 deficiency anemia due to intrinsic factor deficiency[ ICD10: D51.0] Aicha Thompson MD, [facility] CPT-4: 12119 10/12/2016 ([id number]) 44708 EST. PATIENT, LEVEL III Diagnosis: Pain in right ankle and joints of right foot[ICD10: M25.571] Diagnosis: Superficial foreign body, right foot, initial encounter[ICD10: S90.851A] Valentina Thompson MD, [facility] CPT-4: 82471 ([id number]) 64530 EST. PATIENT, LEVEL III Diagnosis: Candidiasis of vulva and vagina[ICD10: B37.3] Diagnosis: Vitamin B12 deficiency anemia, unspecified[ICD10: D51.9] Valentina Thompson MD , [facility] CPT-4: 07755 08/07/2016 ([id number]) 73402 EST. PATIENT, LEVEL III Diagnosis: Spinal stenosis, cervical region[ICD10: M48.02] Diagnosis: Pain in right ankle and joints of right foot[ICD10: M25.571] Diagnosis: Pain in left ankle and joints of left foot[ICD10: M25.572] Valentina Thompson MD, [facility] CPT-4: 66542 07/31/2016 87692 EST. PATIENT, LEVEL III Diagnosis: Cervicalgia[ICD10: M54.2] Diagnosis: Chronic pain syndrome[ICD10: G89.4] Beatriz Thompson MD, [facility] CPT-4: 30526 07/15/2016 ([id number]) 60229 EST. PATIENT, LEVEL III Diagnosis: Spinal stenosis, cervical region[ICD10: M48.02] Diagnosis: Low back pain[ICD10: M54.5] Valentina Thompson MD, [facility] CPT-4: 82776 07/07/2016 ([id number]) 02020 EST. PATIENT, LEVEL IV Diagnosis: Cervicalgia[ICD10: M54.2] Diagnosis: Essential (primary) hypertension[ICD10: I10] Diagnosis: Mixed hyperlipidemia[ICD10: E78.2] Aicha Thompson MD, [facility] CPT-4: 82181 06/25/2016 ([id number]) 99690 EST. PATIENT, LEVEL III Diagnosis: Cervicalgia[ICD10: M54.2] Valentina Thompson MD, [facility] CPT-4: 49410 05/07/2016 ([id number]) 70816 EST. PATIENT, LEVEL III Diagnosis: Pleurodynia[ICD10: R07.81] Diagnosis: Generalized anxiety disorder[ICD10: F41.1] Diagnosis: Vitamin B12 deficiency anemia due to intrinsic factor deficiency[ ICD10: D51.0] Diagnosis: Hypoxemia[ICD10: R09.02] Valentina Thompson MD, [facility] CPT-4: 97302 04/20/2016 ([id number]) 88940 EST. PATIENT, LEVEL III Diagnosis: Generalized anxiety disorder[ICD10: F41.1] Diagnosis: Radiculopathy, lumbar region[ICD10: M54.16] Valentina Thompson MD, [facility] CPT-4: 52399 03/17/2016 52458 EST. PATIENT, LEVEL IV Diagnosis: Chronic pain syndrome[ICD10: G89.4] Diagnosis: Radiculopathy, lumbar region[ICD10: M54.16] Diagnosis: Generalized anxiety disorder[ICD10: F41.1] Beatriz Thompson MD, [facility] CPT-4: 30451 03/05/2016 ([id number]) 40995 EST. PATIENT, LEVEL III Diagnosis: Radiculopathy, lumbar region[ICD10: M54.16] Diagnosis: Generalized anxiety disorder[ICD10: F41.1] Valentina Thompson MD, [facility] CPT-4: 15492 02/28/2016 ([id number]) 63141 EST. 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 PATIENT, LEVEL III Diagnosis: Headache[ICD10: R51] Diagnosis: Cervicalgia[ICD10: M54.2] Valentina Thompson MD, [facility] CPT-4: 91166 08/15/2015 ([id number]) 59098 EST. PATIENT, LEVEL III Diagnosis: Generalized anxiety disorder[ICD10: F41.1] Diagnosis: Cervicalgia[ICD10: M54.2] Valentina Thompson MD, [facility] CPT-4: 12377 07/25/2015 ([id number]) 38972 EST. PATIENT, LEVEL IV Diagnosis: Pain in right foot[ICD10: M79.671] Diagnosis: Unspecified osteoarthritis, unspecified site[ICD10: M19.90] Diagnosis: Pain in left ankle and joints of left foot[ICD10: M25.572] Diagnosis: Pain in right ankle and joints of right foot[ICD10: M25.571] Valentina Thompson MD, [facility] CPT-4: 89747 06/25/2015 ([id number]) 36809 EST. PATIENT, LEVEL IV Diagnosis: Essential (primary) hypertension[ICD10: I10] Diagnosis: Pain in left ankle and joints of left foot[ICD10: M25.572] Diagnosis: Chronic pain syndrome[ICD10: G89.4] Diagnosis: 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 malabsorption with proteinuria[ICD10: D51.1] Valentina Thompson MD, [facility] CPT-4: 87441 06/10/2015 ([id number]) Miscellaneous no charge Diagnosis: Dysuria[ICD10: R30.0] Aicha Thompson MD, [facility] CPT-4: 12058 05/16/2015 ([id number]) 55837 EST. PATIENT, LEVEL IV Diagnosis: Essential (primary) hypertension[ICD10: I10] Diagnosis: Pain in right foot[ICD10: M79.671] Diagnosis: Pain in left foot[ICD10: M79.672] Diagnosis: Anxiety disorder, unspecified[ICD10: F41.9] Aicha Thompson MD, [facility] CPT-4: 41241 05/08/2015 ([id number]) 63985 EST. PATIENT, LEVEL III Diagnosis: Generalized anxiety disorder[ICD10: F41.1] Diagnosis: Essential (primary) hypertension[ICD10: I10] Diagnosis: Other myositis, multiple sites[ICD10: M60.89] Valentina Thompson MD, [facility] CPT-4: 36252 03/26/2015 29887 EST. PATIENT, LEVEL III Diagnosis: Chronic pain syndrome[ICD10: G89.4] Diagnosis: Unspecified osteoarthritis, unspecified site[ICD10: M19.90] Diagnosis: Pain in right foot[ICD10: M79.671] Diagnosis: Pain in left foot[ICD10: M79.672] Beatriz Thompson MD, [facility] CPT -4: 54272 03/15/2015 ([id number]) 05801 EST. PATIENT, LEVEL III Diagnosis: Abrasion of knee, left[ICD9: 916.0] Valentina Thompson MD, [facility] CPT-4: 46646 01/10/2015 ([id number]) 13701 EST. PATIENT, LEVEL IV Diagnosis: CHRONIC PAIN SYNDROME[ICD9: 338.4] Diagnosis: MYALGIA AND MYOSITIS[ICD9: 729.1] Diagnosis: OSTEOARTH NOS-UNSPEC[ICD9: 715.90] Diagnosis: DEPRESSIVE DISORDER NEC[ICD9: 311] Diagnosis: GENERALIZED ANXIETY DISEASE[ICD9: 300.02] Valentina Thompson MD, [facility] CPT-4: 83806 12/21/2014 ([id number]) 78355 EST. PATIENT, LEVEL IV Diagnosis: GENERALIZED ANXIETY DISEASE[ICD9: 300.02] Diagnosis: DEPRESSIVE DISORDER NEC[ICD9: 311] Diagnosis: ESSENTIAL HYPERTENSION[ICD9: 401.9] Valentina Thompson MD, [facility] CPT-4: 42613 10/05/2014 ([id number]) 97046 EST. PATIENT, LEVEL III Diagnosis: Knee pain, right[ICD9: 719.46] Diagnosis: CHRONIC PAIN SYNDROME[ICD9: 338.4] Diagnosis: Ankle pain[ICD9: 719.47] Aicha Thompson MD, [facility] CPT-4: 92226 06/14/2014 ([id number]) 43151 EST. PATIENT, LEVEL III Diagnosis: Constipation[ICD9: 564.00] Diagnosis: Hemorrhoids[ICD9: 455.6] Valentina Thompson MD, [facility] CPT-4: 51512 01/19/2014 ([id number]) 73177 EST. PATIENT, LEVEL III Diagnosis: Ulcer of knee[ICD9: 707.19] Diagnosis: Hemorrhoids[ICD9: 455.6] Diagnosis: B12 deficiency[ICD9: 266.2] Diagnosis: ALLERGIC RHINITIS[ICD9: 477.9] Valentina Thompson MD, [facility] CPT-4: 24489 01/15/2014 ([id number]) 80900 EST. PATIENT, LEVEL IV Diagnosis: EDEMA[ICD9: 782.3] Diagnosis: Open wound of knee[ICD9: 891.0] Diagnosis: CHRONIC PAIN SYNDROME[ICD9: 338.4] Diagnosis: ANEMIA[ICD9: 285.9] Valentina Thompson MD, [facility] CPT-4: 85519 10/20/2013 ([id number]) 67116 EST. PATIENT, LEVEL III Diagnosis: ULCER OTH PART LOW LIMB[ICD9: 707.19] Valentina Thompson MD [facility] CPT-4: 71743 07/24/2013 ([id number]) 92659 EST. PATIENT, LEVEL III Diagnosis: ULCER OTH PART LOW LIMB[ICD9: 707.19] Valentina Thompson MD [facility] CPT-4: 43663 06/23/2013 ([id number]) 29965 EST. PATIENT, LEVEL III Diagnosis: ULCER OTH PART LOW LIMB[ICD9: 707.19] Valentina Thompson MD [facility] CPT-4: 98659 06/12/2013 ([id number]) Miscellaneous no charge Diagnosis: ULCER OTH PART LOW LIMB[ICD9: 707.19] Valentina Thompson MD [facility] CPT-4: 49090 05/29/2013 ([id number]) 72319 EST. PATIENT, LEVEL III Diagnosis: ULCER OTH PART LOW LIMB[ICD9: 707.19] Valentina Thompson MD [facility] CPT-4: 96629 05/23/2013 ([id number]) Miscellaneous no charge Diagnosis: ULCER OTH PART LOW LIMB[ICD9: 707.19] Valentina Thompson MD [facility] CPT-4: 24293 05/19/2013 ([id number]) 37499 EST. PATIENT, LEVEL III Diagnosis: Ulcer of knee[ICD9: 707.19] Valentina Thompson MD [facility] CPT-4: 09829 05/16/2013 ([id number]) 39659 EST. PATIENT, LEVEL III Diagnosis: ALLERGIC RHINITIS[ICD9: 477.9] Aicha Thompson MD [facility] CPT- 4: 93791 03/06/2013 ([id number]) 90004 EST. PATIENT, LEVEL IV Diagnosis: Ankle pain[ICD9: 719.47] Diagnosis: ALLERGIC RHINITIS[ICD9: 477.9] Diagnosis: ESSENTIAL HYPERTENSION[SNOMED: 93914031] Aicha Thompson MD, [facility] CPT-4: 14857 12/26/2012 ([id number]) 66555 EST. PATIENT, LEVEL IV Diagnosis: ESSENTIAL HYPERTENSION[SNOMED: 64851996] Diagnosis: JOINT PAIN-L/LEG[ICD9: 719.46] Diagnosis: GENERALIZED ANXIETY DISEASE[ICD9: 300.02] Diagnosis: UNSPECIFIED ASTHMA[ICD9: 493.90] [facility] CPT-4: 90028 11/21/2012 ([id number]) Miscellaneous no charge Diagnosis: Encounter for tuberculin skin test[ICD9: V74.1] [facility] CPT-4: 85128 09/28/2012 ([id number]) 06119 EST. PATIENT, LEVEL IV Diagnosis: FEVER NOS[ICD9: 780.60] Diagnosis: PNEUMONIA (CAP)[ICD9: 486] Aciha Thompson MD [facility] CPT- 4: 37125 07/21/2012 ([id number]) 26777 EST. PATIENT, LEVEL IV Diagnosis: JOINT PAIN-ANKLE[ICD9: 719.47] Diagnosis: MUSCLE/LIGAMENT DIS NEC[ICD9: 728.89] Diagnosis: Fibromyalgia muscle pain[ICD9: 729.1] [facility] CPT-4: 77647 07/13/2012 ([id number]) 83172 EST. PATIENT, LEVEL IV Diagnosis: Right foot pain[ICD9: 729.5] Diagnosis: Plantar fasciitis[ICD9: 728.71] Diagnosis: GENERALIZED ANXIETY DISEASE[ICD9: 300.02] Diagnosis: B-COMPLEX DEFIC NEC[ICD9: 266.2] [facility] CPT-4: 07472 05/26/2012 ([id number]) 27244 EST. PATIENT, LEVEL IV Diagnosis: Chest wall pain[ICD9: 786.52] Diagnosis: Esophageal reflux[ICD9: 530.81] Diagnosis: ALLERGIC RHINITIS[ICD9: 477.9] [facility] CPT-4: 65511 02/15/2012 ([id number]) 35536 EST. PATIENT, LEVEL IV Diagnosis: ALLERGIC RHINITIS[ICD9: 477.9] Diagnosis: HYPERLIPIDEMIA[ICD9: 272.4] [facility] CPT- 4: 10614 01/13/2012 ([id number]) 06227 EST. PATIENT, LEVEL IV Diagnosis: JOINT PAIN-L/LEG[ICD9: 719.46] Diagnosis: UNSPECIFIED ASTHMA[ICD9: 493.90] Diagnosis: Costalchondritis[ICD9: 733.6] Aicha Thompson MD, [facility] CPT- 4: 50118 12/21/2011 ([id number]) 14117 EST. PATIENT, LEVEL IV Diagnosis: Hyperlipidemia[ICD9: 272.4] Diagnosis: ALLERGIC RHINITIS[ICD9: 477.9] Diagnosis: B12 deficiency[ICD9: 266.2] Diagnosis: Hypopotassemia[ICD9: 276.8] Valentina Thompson MD, [facility] CPT-4: 45521 10/02/2011 ([id number]) 60844 EST. PATIENT, LEVEL IV Diagnosis: Pain in joint involving forearm[ICD9: 719.43] Diagnosis: Neck pain[ICD9: 723.1] Diagnosis: Fall on same level from slipping, tripping, or stumbling[ICD9: E885.9 ] Diagnosis: B12 deficiency[ICD9: 266.2] Aicha Thompson MD, [facility] CPT- 4: 11141 09/01/2011 ([id number]) 09470 EST. PATIENT, LEVEL IV Diagnosis: Vulvovaginitis[ICD9: 616.10] Diagnosis: OVERWEIGHT[ICD9: 278.02] Diagnosis: MYALGIA AND MYOSITIS[ICD9: 729.1] Aicha Thompson MD, [facility] CPT-4: 16890 08/03/2011 ([id number]) 22744 EST. PATIENT, LEVEL IV Diagnosis: MUSCLE/LIGAMENT DIS NEC[ICD9: 728.89] Diagnosis: CHRONIC PAIN SYNDROME[ICD9: 338.4] Diagnosis: Weight gain[ICD9: 783.1] Aicha Thompson MD, [facility] CPT-4: 09199 06/29/2011 38988 EST. PATIENT, LEVEL IV Diagnosis: Wrist pain[ICD9: 719.43] Diagnosis: Knee pain, right[ICD9: 719.46] Diagnosis: Fall on same level from slipping, tripping, or stumbling[ICD9: E885.9 ] Aicha Thompson MD, [facility] CPT-4: 13104 06/22/2011 88937 EST. PATIENT, LEVEL IV Diagnosis: MUSCLE/LIGAMENT DIS NEC[ICD9: 728.89] Diagnosis: JOINT PAIN-L/LEG[ICD9: 719.46] Diagnosis: OSTEOARTH NOS-UNSPEC[ICD9: 715.90] Diagnosis: B12 deficiency[ICD9: 266.2] Aicha Thompson MD, [facility] CPT- 4: 07644 06/11/2011 56954 EST. 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 PATIENT, LEVEL IV Diagnosis: Knee pain, bilateral[ICD9: 719.46] Diagnosis: Iliotibial band syndrome[ICD9: 728.89] Diagnosis: Fibromyalgia syndrome[ICD9: 729.1] Aicha Thompson MD, [facility] CPT-4: 81517 02/12/2011 32877 EST. PATIENT, LEVEL IV Diagnosis: FALL FROM SLIPPING[ICD9: E885.9] Diagnosis: Pain in joint involving lower leg[ICD9: 719.46] Diagnosis: ESOPHAGEAL REFLUX[ICD9: 530.81] Diagnosis: ESSENTIAL HYPERTENSION[SNOMED: 20271439] Aicha Thompson MD, [facility] CPT-4: 95862 01/29/2011 Plan of Care Planned Activity Notes [...] the list of the neurologists that her mechanical engineering director has recommended and we would consider a [...] will await her list of providers. 07/06/2017 Patient Education: Patient Medication Summary Completed 07/06/2017 Appointment: Aicha Thompson WPtel: [address] [place], [place] [id number] (30 min) Complex 07/05/2017 Appointment: Valentina Smith WPtel: [phone] [place] (30 min) Complex 05/17/2017 Appointment: [facility] [place] ([facility] min[facility] Complex 05/14/2017 Visit Plan: Neck kiok-adreqgd-dqkhduy to continue f/u with [facility]-her symptoms have [...] of plan. 04/27/2017 Appointment: Valentina Smith WPtel: [address] [place], [place] [phone] [place] (30 min) Complex 04/27/2017 Patient Education: Patient Medication Summary Completed 04/27/2017 Patient Education: Obesity Completed 04/27/2017 Visit Plan: Hemorrhoidal skin tag-no acute inflammation today -may use hemorrhoid cream as directed as needed-call with any concerns, bleeding, etc. 04/06/2017 Appointment: Valentina Smith WPtel: [phone] [place] (30 min) Complex 04/06/2017 Patient Education: Patient Medication Summary Completed 04/06/2017 Patient Education: Obesity Completed 04/06/2017 Visit Plan: Bilateral foot and ankle pain-now has AFOs-we have made her several appt with podiatrists which she has not kept-recommend patient call Dr Saunders and reschedule appt with him. Neck pain-[facility] appt next week-KEEP APPOINTMENT! 02/25/2017 App[facility]ment: [facility] [phone] [phone] (30 min) Complex 02/25/2017 Patient Education: Patient [...] podiatry for evaluation-wants to see someone in [place] 11/17/2016 Appointment: Valentina Smith WPtel: [phone] (30 min) Complex 11/17/2016 Patient Education: Patient Medication Summary Completed 11/17/2016 Appointment: Valentina Smith WPtel: [address] [place], [place] [phone] (30 min) Complex 11/16/2016 Visit Plan: [place] referral - pt to indicate when and who she would like to go to - for neck and back AFO for both legs - [facility] in [place], [place]- fax #[phone] pt has been seen by boarding specialist - need brace because of bilateral [...] over- medication. 10/12/2016 Appointment: Aicha Thompson WPtel: [facility] (30 min) Complex 10/12/2016 Patient Education: Patient Medication Summary Completed 10/12/2016 Patient Education: Obesity Completed 10/12/2016 Appointment: Injection 09/11/2016 Patient Education: Patient Medication Summary Completed 09/11/2016 Visit Plan: Right ankle pain/instability-xray negative- will obtain MRI ankle Ulcer right foot-instructed patient on wound care and the importance of keeping wound clean-f/u in 10-14 days for re-evaluation 08/18/2016 Appointment: Valentina Smiht WPtel: [phone] (30 min) Complex 08/18/2016 Patient Education: Patient Medication Summary Completed 08/18/2016 Patient Education: Obesity Completed 08/18/2016 Care Plan: X-RAY EXAM NECK SPINE 2-3 [facility] LOINC : 73320-4 Pending 08/15/2016 Visit Plan: Vaginal yeast infection-RX for diflucan B12 deficiency-check labs 08/07/2016 Appointment: Valentina Smith WPtel: [phone] (30 min) Complex 08/07/2016 Patient Education: Patient Medication Summary Completed 08/07/2016 Visit Plan: Cervical stenosis-saw Dr Ramey-Dr Ramey is going to send her to for further evaluation Bilateral ankle pain-xray ankles 07/31/2016 Appointment: Valentina Smith WPtel: [phone] [place] (30 min) Complex 07/31/2016 Patient Education: Patient Medication Summary Completed 07/31/2016 Patient Education: Obesity Completed 07/31/2016 Visit Plan: Neck pain after fall - Will check x-ray, Pt is to follow up with Dr. Perez. Pt is to notify clinic if symptoms do not improve , if they worsen, or with any questions or concerns. 07/15/2016 Appointment: [facility] [phone] [facility] [place] ([facility] [place]) Complex 07/15/2016 Patient [...] Appointment: Injection 07/03/2016 Appointment: [facility] [phone] [phone] [place] (30 min) Complex 07/03/2016 Patient Education: Patient [...] PT. 05/07/2016 App[facility]ment: [facility] [phone] [phone] [place] (30 min) Complex 05/07/2016 Patient Education: Patient Medication Summary Completed 05/07/2016 Patient Education: Obesity Completed 05/07/2016 Care Plan: MRI NECK SPINE W/O [facility] : 26524-6 Pending 05/07/2016 Visit Plan: Chronic Depression and [...] monitor symptoms 04/20/2016 Appointment: Valentina Smith WPtel: [phone] [facility] (30 min) Complex 04/20/2016 Patient Education: Patient Medication Summary Completed 04/20/2016 Appointment: Valentina Smith WPtel: [phone] (30 min) Complex 03/19/2016 Visit Plan: Chronic [...] Dr Ibarra 03/17/2016 Appointment: Valentina Smith WPtel: [facility]5 [facility] [place] [address] (30 min) Complex 03/17/2016 Patient Education: Patient [...] current medications. 02/28/2016 Appointment: Valentina Smith WPtel: [address] [place], [place] [id number] [place] [address] (15 min) Moderate 02/28/2016 Patient Education: Patient Medication Summary Completed 02/28/2016 Appointment: Valentina Smith WPtel: [address] [place], [place] [id number] [place] [address] (30 min) Complex 02/27/2016 Visit Plan: Hypertension [...] d level 02/13/2016 Appointment: Valentina Smith WPtel: [phone] [phone] (30 min) Complex 02/13/2016 Patient Education: Patient Medication Summary Completed 02/13/2016 Patient Education: Obesity Completed 02/13/2016 Care Plan: Cbc With Differential Pending 02/13/2016 Care Plan: Tsh Pending 02/13/2016 Care Plan: Lipid Pending 02/13/2016 Care Plan: Comp Metabolic patient to come fasting Pending 02/13/2016 Care Plan: Vitamin D 25 Oh Cancelled 02/13/2016 Patient Education: Patient Medication Summary Completed 02/03/2016 Care Plan: SCREENINGMAMMOGRAPHYDIGITAL LOINC : 81098-8 Pending 02/03/2016 Appointment: Injection 01/15/2016 Appointment: Lab [...] EXAM NECK SPINE 2-3 VW LOINC : 72984-7 Ordered 08/15/2015 Visit Plan: Anxiety-fairly well controlled-does [...] side effects. 05/08/2015 Appointment: Aicha Thompson WPtel: [address] [place], [place] [id number] (30 min) [facility] 05/08/2015 Patient Education: Patient Medication Summary Completed [...] Care Plan: COMPLETE CBC AUTOMATED LOINC : 72792-2 Ordered 10/05/2014 Visit Plan: Chronic Pain Syndrome - pt has chronic pain - has been maintained on current medications, has not sought out other medications , only uses PRN pain medications as directed, and understands the consequences of over-medication. Right hip/knee/ankle pain-improving since last fall- continue physical therapy exercises-continue supportive shoes and use walker for stability 06/14/2014 Appointment: Valentina Smith WPtel: [address] [place], [place] [id number] Follow up 06/14/2014 Patient Education: Patient Medication [...] the instructions given to her from her solar sales ambassador and she is to call him if her constipation is uncontrolled. Hemorrhoids-use suppositories as directed. 01/19/2014 Patient Education: Patient Medication Summary Completed 01/19/2014 Visit Plan: Ulcer of hsxj-wszucst-igivs instructions provided today and instructed patient to return as directed-keep wound clean and dry. Hemorrhoids-refill anusol suppositories and use as directed B12 deficiency-b12 injection today in the office Xbstculzn-ygcuypkasgdx-lrufnlc injection today in the office-continue oral medications [...] Anemia-check labs 10/20/2013 Appointment: Valentina Smith WPtel: [facility]5 [phone] [place] Other 10/20/2013 Patient Education: Patient Medication Summary Completed 10/20/2013 Appointment: Valentina Smith WPtel: [address] [place], [place] [phone] [place] Injection 08/21/2013 Appointment: Aicha Thompson WPtel: [address] [place], [place] [phone] Follow up 07/31/2013 Visit Plan: Ulcer of knee healing-silver nitrate to granulation tissue-instructed patient to monitor and call if it does not completely heal for appointment-instructed on wound care-patient and mother verbalized understanding of plan. 07/24/2013 Patient Education: Patient Medication Summary Completed 07/24/2013 Patient Education: Patient Medication Summary Completed 07/24/2013 Appointment: Valentina Smith WPtel: [phone] Follow up 07/03/2013 Visit Plan: Ulcer-left knee-fibrous tissue removed from wound bed to reveal pink granulation tissue-wound cleansed and dressing applied. Instructed patient on wound care. Return in 10 days for follow up. 06/23/2013 Appointment: Valnetina Smith WPtel: [address] [place], [place] [phone] Follow up 06/23/2013 Patient Education: Patient Medication Summary Completed 06/23/2013 Appointment: Aicha Thompson WPtel: [address] [place], [place] [address] Follow up 06/22/2013 Appointment: Valentina Smith WPtel: [address] [place], [place] [phone] Follow up 06/22/2013 Visit Plan: Ulcer-left knee-fibrous tissue removed from wound bed to reveal pink granulation tissue-wound cleansed and dressing applied. Instructed patient on wound care. Return in 10 days for follow up. 06/12/2013 Appointment: Valentina Smith WPtel: [address] [place], [place] [phone] [place] [address] Follow up 06/12/2013 Patient Education: Patient Medication Summary Completed 06/12/2013 Appointment: Aicha Thompson WPtel: [address] [place], [place] [phone] Follow up 06/08/2013 Visit Plan: Ulcer left romk-tfqckxbm-f/u in 10 days 05/29/2013 Appointment: Valentina Smith WPtel: [address] [place], [place] [phone] [place] [address] Follow up 05/29/2013 Patient Education: Patient Medication Summary Completed 05/29/2013 Visit Plan: Ulcer of knee-sharp debridement today in the office--wound care instructions provided for patient-patient and mother verbalized understanding of plan. Follow up next week. 05/23/2013 Appointment: Valentina Smith WPtel: [address] [place], [place] [phone] [place] [address] Follow up 05/23/2013 Patient Education: Patient Medication Summary Completed 05/23/2013 Appointment: Valentina Smith WPtel: [address] [place], [place] [phone] Follow up 05/22/2013 Visit Plan: Ulcer of knee-wound care instructions provided for patient-patient and mother verbalized understanding of plan. 05/19/2013 Appointment: Valentina Smith WPtel: [address] [place], [place] [phone] [facility] 05/19/2013 Patient Education: Patient Medication Summary Completed 05/19/2013 Visit Plan: Ulcer of knee-fibrous tissue debrided today in the office--wound care instructions provided for patient-return in 1 week for follow up. 05/16/2013 Appointment: Valentina Smith WPtel: [address] [place], [place] [phone] [facility] follow up 05/16/2013 Patient Education: Patient Medication Summary Completed 05/16/2013 Appointment: Aicha Thompson [facility]Ptel[phone] [facility] [place] Injection 05/10/2013 Patient Education: Patient Medication Summary [...] office. 03/06/2013 Appointment: Valentina Smith WPtel: [phone] [phone] Other 03/06/2013 Patient Education: Patient Medication Summary Completed 03/06/2013 Appointment: Aicah Thompson WPtel: [facility]5 [facility] Nurse Visit 02/20/2013 Patient Education: Patient Medication Summary Completed 02/20/2013 Appointment: Aicha Thompson WPtel: [facility]5 [facility] Follow up 01/16/2013 Visit Plan: Joint pain [...] acute concerns. 12/26/2012 Appointment: Aicha Thompson [facility]Ptel[phone] [facility] Other 12/26/2012 Patient Education: Patient Medication Summary Completed 12/26/2012 Patient Education: Hypertension Completed 12/26/2012 Appointment: Aicha Thompson WPtel: [facility] [facility] 12/21/2012 Patient Education: Patient Medication [...] acute changes 11/21/2012 Appointment: Aicha Thompson [facility]Ptel: [phone] [facility] Follow up 11/21/2012 Patient Education: Patient Medication Summary Completed 11/21/2012 Patient Education: Hypertension Completed 11/21/2012 Appointment: Aicha Thompson WPtel: [facility] [place] Injection 11/16/2012 Patient Education: Patient Medication Summary Completed 11/16/2012 Appointment: Aicha Thompson WPtel: [phone] [facility] [place] Injection 09/28/2012 Patient Education: Patient Medication Summary Completed 09/28/2012 Appointment: Aicha Thompson [facility]Ptel: [phone] [facility] [place] Injection 09/26/2012 Patient Education: Patient Medication Summary Completed 09/26/2012 Appointment: Aicha Thompson [facility]Ptel: [phone] [facility] [place] Injection 09/12/2012 Patient Education: Patient Medication Summary Completed 09/12/2012 Appointment: Aicha Thompson [facility]Ptel: [phone] [facility] [place] Injection 08/11/2012 Patient Education: Patient Medication Summary Completed 08/11/2012 Visit Plan: Pneumonia - Pt has been diagnosed with pneumonia by physical exam. A chest xray has been ordered as have antibiotics. The pt is aware of the diagnosis and the need for acute treatment of this illness. Plan to check stat labs at the hospital and start patient on abx ejssica. Instructed patient and her mom to go [...] management sparingly. 07/13/2012 Appointment: Aicha Thompson WPtel: [address] [place], [place] [address] Other 07/13/2012 Patient Education: Patient Medication Summary [...] in medications 05/26/2012 Appointment: Valentina Smith WPtel: [address] [place] [address] Other 05/26/2012 Patient Education: Patient Medication Summary Completed 05/26/2012 Appointment: Valentina Smith WPtel: [address] [place] [address] Sick 03/15/2012 Appointment: Aicha Thompson WPtel: [address] [place], [place] [phone] Injection 03/02/2012 Patient Education: Patient Medication Summary [...] the medication. 02/15/2012 Appointment: Valentina Smith WPtel: [facility]5 [phone] [place] [address] Other 02/15/2012 Patient Education: Patient Medication Summary [...] to medications 01/13/2012 Appointment: Valentina Smith WPtel: [facility]5 [address] Other 01/13/2012 Patient Education: Patient Medication Summary Completed 01/13/2012 Appointment: Valentina Smith WPtel: [address] [place], [place] [phone] [place] Other 01/06/2012 Visit Plan: Asthma - chest xray and symbicort sample today. Patellofemoral syndrome- recommended physical therapy. Costochondritis - recommended pt to use antiinflammatories as able for treatment of rib/sternum irritation and for pt to call if her symptoms do not improve. 12/21/2011 Appointment: Aicha Thompson WPtel: [facility]5 [facility]66[facility] Other 12/21/2011 Patient Education: Patient Medication Summary [...] the office. 10/02/2011 Appointment: Valentina Smith WPtel: [facility] [place] [phone] [place] [address] Other 10/02/2011 Patient Education: Patient Medication Summary Completed 10/02/2011 Visit Plan: Pain in joints-arms, elbows-recent fall- discussed natural and expected course of this diagnosis and to alert me if symptoms do not follow expected course, or if any worse. Patient verbalized understanding. Neck akkq-dxylcmo-ewfucjcgj physical therapy-patient declined at this time-going to see the asset protection detective this afternoon. B12 deficiency-B12 injection today in the office. 09/01/2011 Appointment: Valentina Smith WPtel: [facility]9 [phone] [place] Other 09/01/2011 Patient Education: Patient Medication [...] management sparingly. 08/03/2011 Appointment: Aicha Thompson WPtel: [facility]4 [facility] Follow up 08/03/2011 Patient Education: Patient Medication [...] PAIN. 06/29/2011 Appointment: Aicha Thompson WPtel: [phone] [facility] Follow up 06/29/2011 Patient Education: Patient Medication Summary Completed 06/29/2011 Appointment: Aicha Thompson WPtel: [facility]3 [facility] [place] Other 06/24/2011 Visit Plan: Right knee pain, bilateral wrist pain-recent fall-discussed natural and expected course of this diagnosis and to alert me if symptoms do not follow expected course, or if any worse. Patient verbalized understanding. Recommend follow up with Ortho physician if pain persists. 06/22/2011 Appointment: Valentina Smith WPtel: [phone] [place] Other 06/22/2011 Patient Education: Patient Medication Summary Completed 06/22/2011 Visit Plan: Knee and Ankle pain and instability- recommend re-evaluation by an senior loss control specialist at [facility] of the [address] [place] [address]. Pt has been recommended to go back to Dr. Corbin at [facility] of the [address] [place] [address] as my office did not get a [...] of fibromyalgia. 06/11/2011 Appointment: Aicha Thompson WPtel: [phone] [facility] [place] Injection 06/11/2011 Appointment: Aicha Thompson WPtel: [phone] [facility] [place] Other 06/11/2011 Patient Education: Patient Medication Summary Completed 06/11/2011 Visit Plan: Knee and Ankle pain and instability- recommend evaluation by an senior loss control specialist at [facility]. The pt has been previously referred to [...] versus her usual physical appearance. 03/11/2011 Appointment: DonnaAicha WPtel: [phone] [facility] [place] Other 03/11/2011 Patient Education: Patient Medication Summary Completed 03/11/2011 Patient Education: .Amazing charts Diabetic meal planning guide Completed 03/11 Appointment: Donna Aicha WPtel: [phone] [facility] [place] Injection 02/23/2011 Patient Education: Patient Medication Summary Completed 02/23/2011 Visit Plan: iliotibial band syndrome - continue with current treatment per asset protection detective. I have recommend use of biofreeze to the right outer leg. I have given pt stretching exercises for home. Fibromyalgia - chronic - continue with exercise, heat, and prn pain medication. Knee pain - apparently resolved prior to her appointment today. No change in present management, call if pain returns. 02/12/2011 Appointment: Aicha Thompson WPtel: [phone] [facility] Other 02/12/2011 Patient Education: Patient Medication [...] appt with Dr Ibarra . Ulcer left dqex-nnxfeixt-b/u in 10 days . Hemorrhoidal skin tag-no acute inflammation today -may use hemorrhoid cream as directed as needed-call with any concerns, bleeding, etc. Dr Saunders -[facility] . Bilateral foot and ankle pain-now has [...] legs - [facility] in [place], [place]- fax # [phone] pt has been seen by boarding specialist - need brace because of bilateral [...] the instructions given to her from her solar sales ambassador and she is to call him if her constipation is uncontrolled. Hemorrhoids-use suppositories as directed. . Anxiety-fairly well controlled-does have added stress with family-no change in medications-call if symptoms worsen Neck pain-recommend rest, ice and anti inflammatories as directed-call if symptoms do not resolve or if any worse. Patient verbalized understanding of plan. . iliotibial band syndrome - continue with current treatment per asset protection detective. I have recommend use of biofreeze to [...] and instability- recommend re- evaluation by an senior loss control specialist at [facility] of the [address] [place] [address]. Pt has been recommended to go back to Dr. Corbin at [facility] of the [address] [place] [address] as my office did not get a [...] savella for treatment of fibromyalgia. REFER TO [facility] EVALUATION DX BILATERAL FOOT AND ANKLE PAIN . Bilateral foot pain-foot drop-patient getting AFOs-refer to podiatry for evaluation-wants to see someone in [place] . Joint pain - again reassured Iker [...] infection-RX for diflucan B12 deficiency-check labs . Hypertension - well controlled - [...] the list of the neurologists that her mechanical engineering director has recommended and we would consider a [...] we will await her list of providers. Recommend anti-inflammatories as needed for pain--okay to [...] if any worse. Patient verbalized understanding. Neck lvol-ykgyfmi-ynzsyrkmc physical therapy-patient declined at this time- going to see the asset protection detective this afternoon. B12 deficiency-B12 injection today in [...] today in the office. . Ulcer of wita-elmonhp-byjsx instructions provided today and instructed patient to return as directed-keep wound clean and dry. Hemorrhoids-refill anusol suppositories and use as directed B12 deficiency-b12 injection today in the office Jdmfqipuk-hlfihclfczcy-mjjfioh injection today in the office-continue oral medications [...] for acute changes B12 injection . Neck nziq-aiffubm-otyafhe to continue f/u with [facility]-her symptoms have [...] regimen-no changes in medications Dr. Ramey - [facility] . Hypertension - well controlled [...] gave you a prescription to take to [facility]. DO NOT EAT 8-12 [...] pain and instability- recommend evaluation by an senior loss control specialist at [facility]. The pt has been previously referred to [...] (may be called three old goats) at [facility]. . Hypertension - well controlled [...]
--- OUTSIDE RECORDS SUMMARY | 2017-09-09 10:36 | XMS REPORT | Continuity of Care Document ---
Author Author [facility] Address Unknown Phone Unavailable Allergies Active Description Code Type Severity Reaction Onset Reported/Identified Relationship to Patient Clinical Status Yes latex [id number] Drug Allergy Unknown N/A 08/29/2013 Yes Sulfa (Sulfonamide Antibiotics) [id number] Drug Allergy Unknown N/A 2013 Medications There is no data. Problems Date Dx Coded Attending Type Code Diagnosis Diagnosed By 12/26/2007 YOMI CARBALLO PHD 300.4 MO DYSTHYMIC DIS 12/26/2007 YOMI CARBALLO PHD 300.4 MO DYSTHYMIC DIS 12/26/2007 YOMI CARBALLO PHD 300.4 MO DYSTHYMIC DIS 12/26/2007 YOMI CARBALLO PHD 300.4 MO DYSTHYMIC DIS 12/26/2007 YOIM CARBALLO PHD 300.4 MO DYSTHYMIC DIS 12/26/2007 [...] APNEA (ADULT) (PEDIATR 03/07/2012 Ot 719.46 JOINT PAIN-L /LEG 03/07/2012 Ot 729.1 MYALGIA AND MYOSITIS NOS 03/07/2012 Ot V57.1 PHYSICAL THERAPY NEC 06/03/2012 Ot 338.29 OTHER CHRONIC PAIN 09/15/2012 Ot 729.1 MYALGIA AND MYOSITIS NOS 09/15/2012 Ot 780.60 FEVER, UNSPECIFIED 09/15/2012 Ot V58.69 OTH MED,LT, CURRENT USE 03/14/2013 YOMI CARBALLO PHD 296.32 MO [...] PHD 296.32 MO DEPRESSIVE RECURRENT MODERATE 03/14/2013 FLORINDA CARBALLO PHDWIN D 296.32 MO DEPRESSIVE RECURRENT MODERATE 03/14/2013 YOMI CARBALLO PHD 296.32 MO DEPRESSIVE RECURRENT MODERATE 05/09/2013 FINN [...] 05/29/2014 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 Ot 266.2 06/05/2014 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 Ot 266.2 06/05/2014 Ot 786.50 06/05/2014 Ot [...] 729.1 06/05/2014 Ot 780.60 06/05/2014 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 CONTENT EDITOR Ot 266.2 06/05/2014 SAILAJA NO, SVETLANA A Ot 519.11 06/05/2014 SAILAJA NO, SVETLANA A Ot 786.09 06/05/2014 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 CONTENT EDITOR Ot 266.2 06/24/2014 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 CONTENT EDITOR Ot 266.2 B-COMPLEX DEFIC NEC 07/05/2014 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 CONTENT EDITOR Ot 719.47 07/05/2014 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 CONTENT EDITOR Ot 729.5 07/06/2014 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 CONTENT EDITOR Ot 719.47 07/06/2014 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 CONTENT EDITOR Ot 729.5 09/13/2014 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 CONTENT EDITOR Ot 266.2 10/11/2014 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 CONTENT EDITOR Ot 266.2 10/26/2014 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 CONTENT EDITOR Ot 266.2 10/26/2014 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 CONTENT EDITOR Ot 266.2 11/14/2014 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 CONTENT EDITOR Ot 266.2 B-COMPLEX DEFIC NEC 11/14/2014 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 CONTENT EDITOR Ot 266.2 12/25/2014 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 CONTENT EDITOR Ot 266.2 01/23/2015 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 CONTENT EDITOR Ot 266.2 01/29/2015 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 CONTENT EDITOR Ot 266.2 01/30/2015 Ot 786.50 01/30/2015 Ot [...] SVETLANA A Ot 786.09 01/30/2015 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 CONTENT EDITOR Ot 719.47 01/30/2015 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 CONTENT EDITOR Ot 729.5 01/30/2015 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 CONTENT EDITOR Ot 266.2 01/30/2015 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 CONTENT EDITOR Ot 266.2 02/01/2015 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 CONTENT EDITOR Ot 266.2 02/22/2015 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 CONTENT EDITOR Ot 719.46 JOINT PAIN-L/LEG 02/22/2015 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 CONTENT EDITOR Ot 728.87 MUSCLE WEAKNESS (GENERALIZED) 02/22/2015 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 CONTENT EDITOR Ot M25.569 PAIN IN UNSPECIFIED KNEE 02/22/2015 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 CONTENT EDITOR Ot M62.81 MUSCLE WEAKNESS (GENERALIZED) 02/22/2015 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 CONTENT EDITOR Ot V57.1 PHYSICAL THERAPY NEC 02/22/2015 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 CONTENT EDITOR Ot Z51.89 ENCOUNTER FOR OTHER SPECIFIED AFTERCARE 02/26/2015 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 CONTENT EDITOR Ot 266.2 02/26/2015 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 CONTENT EDITOR Ot 266.2 03/06/2015 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 CONTENT EDITOR Ot 266.2 B-COMPLEX DEFIC NEC 04/03/2015 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 CONTENT EDITOR Ot 266.2 04/04/2015 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 CONTENT EDITOR Ot 266.2 05/06/2015 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 CONTENT EDITOR Ot E53.8 05/30/2015 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 CONTENT EDITOR Ot E53.8 06/10/2015 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 CONTENT EDITOR Ot E53.8 06/25/2015 Ot 959.3 06/25/2015 Ot [...] A Ot 786.09 06/25/2015 VARSHA BROOKS Patrick CONTENT EDITOR Ot 719.47 06/25/2015 VARSHA BROOKS Patrick CONTENT EDITOR Ot 729.5 06/25/2015 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 CONTENT EDITOR Ot 266.2 06/25/2015 VARSHA BROOKS Patrick CONTENT EDITOR Ot E53.8 07/02/2015 VLADIMIR MADDOXKIRA Patrick CONTENT EDITOR Ot E53.8 DEFICIENCY OF OTHER SPECIFIED B GROUP 07/23/2015 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 Celina CONTENT EDITOR Ot M79.671 07/23/2015 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 Celina CONTENT EDITOR Ot E53.8 07/23/2015 VARSHA BROOKS Patrick CONTENT EDITOR Ot E53.8 07/24/2015 VARSHA BROOKS Patrick CONTENT EDITOR Ot E53.8 07/25/2015 VARSHA BROOKS Patrick CONTENT EDITOR Ot M79.671 08/27/2015 VARSHA BROOKS Patrick CONTENT EDITOR Ot E53.8 09/04/2015 VLADIMIR MADDOXKIRA Patrick CONTENT EDITOR Ot E53.8 09/10/2015 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 CONTENT EDITOR Ot M47.892 09/10/2015 VLADIMIR MADDOXKIRA Patrick CONTENT EDITOR Ot M47.892 09/13/2015 YONTAAN MADDOXIWONA Patrick CONTENT EDITOR Ot E53.8 10/21/2015 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 CONTENT EDITOR Ot E53.8 DEFICIENCY OF OTHER SPECIFIED B GROUP 03/02/2016 CALLUM BRISENO MD, Ot F41.9 ANXIETY DISORDER, UNSPECIFIED 03/02/2016 FINN NO, CALLUM Meeks Ot Z53.21 PROC/TRTMT NOT CRD OUT D/T PT LV BEF SEE 03/04/2016 CALLUM BRISENO MD, Ot F41.9 ANXIETY DISORDER, UNSPECIFIED 03/04/2016 FINN NO, CALLUM Meeks Ot Z53.21 PROC/TRTMT NOT CRD OUT D/T PT LV BEF SEE 03/09/2016 ISSA SALOMON INFORMATICA Ot M54.5 LOW BACK PAIN 03/12/2016 ISSA SALOMON INFORMATICA Ot M54.5 LOW BACK PAIN 03/13/2016 ISSA SALOMON INFORMATICA Ot M54.5 LOW BACK PAIN 03/30/2016 ISSA SALOMON INFORMATICA Ot M54.5 LOW BACK PAIN 04/02/2016 UMMISSA Celina INFORMATICA Ot M54.5 LOW BACK PAIN 04/03/2016 Ot 793.81 MAMMOGRAPHIC MICROCLACIFICATION 04/03/2016 Ot V76.12 OTH SCREEN MAMMO-MALIGN NEOPLASM OF [place] 04/03/2016 Ot 719.46 JOINT PAIN-L /LEG 04/03/2016 Ot 719.47 JOINT PAIN- ANKLE 04/03/2016 Ot 959.7 LOWER LEG INJURY NOS 04/03/2016 Ot E000.8 OTHER EXTERNAL CAUSE STATUS 04/03/2016 Ot E849.0 ACCIDENT IN HOME 04/03/2016 Ot E888.9 FALL NOS 04/03/2016 Ot 780.79 OTH MALAISE FATIGUE 04/03/2016 Ot 786.05 SHORTNESS OF BREATH 04/03/2016 Ot 719.43 JOINT PAIN- FOREARM 04/03/2016 Ot 793.81 MAMMOGRAPHIC MICROCLACIFICATION 04/03/2016 Ot [...] A Ot 786.09 RESPIRATORY ABNORM NEC 04/03/2016 MADDOX, BROOKS M CONTENT EDITOR Ot 719.47 JOINT PAIN-ANKLE 04/03/2016 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 CONTENT EDITOR Ot 729.5 PAIN IN LIMB 04/03/2016 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 CONTENT EDITOR Ot 266.2 B-COMPLEX DEFIC NEC 04/03/2016 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 CONTENT EDITOR Ot M79.671 PAIN IN RIGHT FOOT 04/03/2016 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 CONTENT EDITOR Ot M47.892 OTHER SPONDYLOSIS, CERVICAL REGION 04/03/2016 MADDOXBROOKS Celina CONTENT EDITOR Ot E53.8 DEFICIENCY OF OTHER SPECIFIED B GROUP 04/03/2016 ISSA SALOMON APRN Ot M54.5 LOW BACK PAIN 04/06/2016 VARSHABROOKS CONTENT EDITOR Ot R07.89 OTHER CHEST PAIN 04/06/2016 MADDOXBROOKS Celina CONTENT EDITOR Ot W19.XXXA UNSPECIFIED FALL, INITIAL ENCOUNTER 04/06/2016 MADDOXBROOKS CONTENT EDITOR Ot Y99.8 OTHER EXTERNAL CAUSE STATUS 04/24/2016 VARSHABROOKS Celina CONTENT EDITOR Ot R07.89 OTHER CHEST PAIN 04/24/2016 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 CONTENT EDITOR Ot W19.XXXA UNSPECIFIED FALL, INITIAL ENCOUNTER 04/24/2016 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 CONTENT EDITOR Ot Y99.8 OTHER EXTERNAL CAUSE STATUS 05/04/2016 MADDOXBROOKS Celina CONTENT EDITOR Ot R07.89 OTHER CHEST PAIN 05/04/2016 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 Celina CONTENT EDITOR Ot W19.XXXA UNSPECIFIED FALL, INITIAL ENCOUNTER 05/04/2016 VARSHABROOKS Celina CONTENT EDITOR Ot Y99.8 OTHER EXTERNAL CAUSE STATUS 06/17/2016 VARSHA BROOKS M CONTENT EDITOR Ot M48.02 SPINAL STENOSIS, CERVICAL REGION 07/08/2016 VARSHABROOKS Celina CONTENT EDITOR Ot M48.02 SPINAL STENOSIS, CERVICAL REGION 07/15/2016 VARSHAVLADIMIRKIRA Patrick CONTENT EDITOR Ot M48.02 SPINAL STENOSIS, CERVICAL REGION 07/16/2016 ISSA SALOMON APRN Ot M54.2 CERVICALGIA 07/16/2016 ISSA SALOMON INFORMATICA Ot S19.9XXA UNSPECIFIED INJURY OF NECK, INITIAL ENCO 07/16/2016 ISSA SALOMON APRN Ot W19.XXXA UNSPECIFIED FALL, INITIAL ENCOUNTER 07/16/2016 UMM, ISSA M INFORMATICA Ot Y99.8 OTHER EXTERNAL CAUSE STATUS 07/16/2016 ISSA SALOMON INFORMATICA Ot M54.2 CERVICALGIA 07/16/2016 ISSA SALOMON INFORMATICA Ot S19.9XXA UNSPECIFIED INJURY OF NECK, INITIAL ENCO 07/16/2016 ISSA SALOMON INFORMATICA Ot W19.XXXA UNSPECIFIED FALL, INITIAL ENCOUNTER 07/16/2016 ISSA SALOMON INFORMATICA Ot Y99.8 OTHER EXTERNAL CAUSE STATUS 08/04/2016 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 CONTENT EDITOR Ot M25.571 PAIN IN RIGHT ANKLE AND JOINTS OF RIGHT 08/04/2016 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 CONTENT EDITOR Ot M25.572 PAIN IN LEFT ANKLE AND JOINTS OF LEFT FO 08/04/2016 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 CONTENT EDITOR Ot W19.XXXA UNSPECIFIED FALL, INITIAL ENCOUNTER 08/04/2016 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 CONTENT EDITOR Ot Y99.8 OTHER EXTERNAL CAUSE STATUS 08/06/2016 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 CONTENT EDITOR Ot M25.571 PAIN IN RIGHT ANKLE AND JOINTS OF RIGHT 08/06/2016 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 CONTENT EDITOR Ot M25.572 PAIN IN LEFT ANKLE AND JOINTS OF LEFT FO 08/06/2016 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 CONTENT EDITOR Ot W19.XXXA UNSPECIFIED FALL, INITIAL ENCOUNTER 08/06/2016 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 CONTENT EDITOR Ot Y99.8 OTHER EXTERNAL CAUSE STATUS 08/06/2016 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 CONTENT EDITOR Ot M25.571 PAIN IN RIGHT ANKLE AND JOINTS OF RIGHT 08/06/2016 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 CONTENT EDITOR Ot M25.572 PAIN IN LEFT ANKLE AND JOINTS OF LEFT FO 08/06/2016 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 CONTENT EDITOR Ot W19.XXXA UNSPECIFIED FALL, INITIAL ENCOUNTER 08/06/2016 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 CONTENT EDITOR Ot Y99.8 OTHER EXTERNAL CAUSE STATUS 08/07/2016 ISSA SALOMON INFORMATICA Ot M54.2 CERVICALGIA 08/07/2016 ISSA SALOMON INFORMATICA Ot S19.9XXA UNSPECIFIED INJURY OF NECK, INITIAL ENCO 08/07/2016 ISSA SALOMON INFORMATICA Ot W19.XXXA UNSPECIFIED FALL, INITIAL ENCOUNTER 08/07/2016 ISSA SALOMON INFORMATICA Ot Y99.8 OTHER EXTERNAL CAUSE STATUS 08/12/2016 ISSA SALOMON INFORMATICA Ot M54.2 CERVICALGIA 08/12/2016 ISSA SALOMON INFORMATICA Ot S19.9XXA UNSPECIFIED INJURY OF NECK, INITIAL ENCO 08/12/2016 ISSA SALOMON INFORMATICA Ot W19.XXXA UNSPECIFIED FALL, INITIAL ENCOUNTER 08/12/2016 ISSA SALOMON INFORMATICA Ot Y99.8 OTHER EXTERNAL CAUSE STATUS 08/21/2016 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 CONTENT EDITOR Ot M25.571 PAIN IN RIGHT ANKLE AND JOINTS OF RIGHT 08/21/2016 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 CONTENT EDITOR Ot M25.572 PAIN IN LEFT ANKLE AND JOINTS OF LEFT FO 08/21/2016 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 CONTENT EDITOR Ot W19.XXXA UNSPECIFIED FALL, INITIAL ENCOUNTER 08/21/2016 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 CONTENT EDITOR Ot Y99.8 OTHER EXTERNAL CAUSE STATUS 08/25/2016 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 CONTENT EDITOR Ot M25.371 OTHER INSTABILITY, RIGHT ANKLE 08/25/2016 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 CONTENT EDITOR Ot M25.571 PAIN IN RIGHT ANKLE AND JOINTS OF RIGHT 2016 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 CONTENT EDITOR Ot M25.571 PAIN IN RIGHT ANKLE AND JOINTS OF RIGHT 2016 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 CONTENT EDITOR Ot M25.572 PAIN IN LEFT ANKLE AND JOINTS OF LEFT FO 2016 VARSHA BROOKS M CONTENT EDITOR Ot W19.XXXA UNSPECIFIED FALL, INITIAL ENCOUNTER 2016 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 CONTENT EDITOR Ot Y99.8 OTHER EXTERNAL CAUSE STATUS 09/16/2016 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 CONTENT EDITOR Ot M25.371 OTHER INSTABILITY, RIGHT ANKLE 09/16/2016 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 CONTENT EDITOR Ot M25.571 PAIN IN RIGHT ANKLE AND JOINTS OF RIGHT 09/25/2016 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 CONTENT EDITOR Ot M25.371 OTHER INSTABILITY, RIGHT ANKLE 09/25/2016 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 CONTENT EDITOR Ot M25.571 PAIN IN RIGHT ANKLE AND JOINTS OF RIGHT 10/21/2016 AYLEEN SUAREZ DO Ot M54.16 RADICULOPATHY, LUMBAR REGION 11/03/2016 AYLEEN SUAREZ DO Ot M54.16 RADICULOPATHY, LUMBAR REGION 11/13/2016 JOSE RUBALCAVA MD Ot G47.33 OBSTRUCTIVE SLEEP APNEA (ADULT) (PEDIATR 11/15/2016 JOSE RUBALCAVA MD Ot G47.33 OBSTRUCTIVE SLEEP APNEA (ADULT) (PEDIATR 04/18/2017 JULIETTE BECERRA Ot F32.9 MAJOR DEPRESSIVE DISORDER, SINGLE EPISOD 04/18/2017 JULIETTE BECERRA Ot J44.9 CHRONIC OBSTRUCTIVE PULMONARY DISEASE, U 04/18/2017 JULIETTE BECERRA Ot K21.9 GASTRO-ESOPHAGEAL REFLUX DISEASE WITHOUT 04/18/2017 JULIETTE BECERRA Ot S01.01XA LACERATION WITHOUT FOREIGN BODY OF SCALP 04/18/2017 JULIETTE BECERRA Ot S01.91XA LACERATION W/O FOREIGN BODY OF UNSP PART 04/18/2017 JULIETTE BECERRA Ot S16.1XXA STRAIN OF MUSCLE, FASCIA AND TENDON AT N 04/18/2017 JULIETTE BECERRA Ot W01.10XA FALL SAME LEV FROM SLIP/TRIP W STRIKE AG 04/18/2017 JULIETTE BECERRA Ot Z23 ENCOUNTER FOR IMMUNIZATION 04/18/2017 JULIETTE BECERRA Ot Z90.710 ACQUIRED ABSENCE OF BOTH CERVIX AND UTER 04/19/2017 JULIETTE BECERRA Ot F32.9 MAJOR DEPRESSIVE DISORDER, SINGLE EPISOD 04/19/2017 JULIETTE BECERRA Ot G89.29 OTHER CHRONIC PAIN 04/19/2017 JULIETTE BECERRA Ot J44.9 CHRONIC OBSTRUCTIVE PULMONARY DISEASE, U 04/19/2017 JULIETTE BECERRA Ot K21.9 GASTRO-ESOPHAGEAL REFLUX DISEASE WITHOUT 04/19/2017 JULIETTE BECERRA Ot M54.2 CERVICALGIA 04/19/2017 JULEITTE BECERRA Ot R51 HEADACHE 04/19/2017 JULIETTE BECERRA Ot S09.90XD UNSPECIFIED INJURY OF HEAD, SUBSEQUENT E 04/19/2017 JULIETTE BECERRA Ot W19.XXXD UNSPECIFIED FALL, SUBSEQUENT ENCOUNTER 04/19/2017 JULIETTE BECERRA Ot Z87.19 PERSONAL HISTORY OF OTHER DISEASES OF TH 06/26/2017 Ot 959.11 OTH INJURY OF CHEST WALL 06/26/2017 Ot E000.8 OTHER EXTERNAL CAUSE STATUS 06/26/2017 Ot E849.0 ACCIDENT IN HOME 06/26/2017 Ot E888.9 FALL NOS 06/26/2017 Ot 729.1 MYALGIA AND MYOSITIS NOS 06/26/2017 Ot 780.60 FEVER, UNSPECIFIED 06/26/2017 SAILAJA NO, SVETLANA A Ot 519.11 ACUTE BRONCHOSPASM 06/26/2017 SAILAJA NO, SVETLANA A Ot 786.09 RESPIRATORY ABNORM NEC 06/26/2017 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 CONTENT EDITOR Ot 719.47 JOINT PAIN-ANKLE 06/26/2017 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 CONTENT EDITOR Ot 729.5 PAIN IN LIMB 06/26/2017 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 CONTENT EDITOR Ot 266.2 B-COMPLEX DEFIC NEC 06/26/2017 BROKOS MADDOX CONTENT EDITOR Ot M79.671 PAIN IN RIGHT FOOT 06/26/2017 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 CONTENT EDITOR Ot M47.892 OTHER SPONDYLOSIS, CERVICAL REGION 06/26/2017 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 CONTENT EDITOR Ot E53.8 DEFICIENCY OF OTHER SPECIFIED B GROUP 06/26/2017 ISSA SALOMON INFORMATICA Ot M54.5 LOW BACK PAIN 06/26/2017 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 CONTENT EDITOR Ot R07.89 OTHER CHEST PAIN 06/26/2017 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 CONTENT EDITOR Ot W19.XXXA UNSPECIFIED FALL, INITIAL ENCOUNTER 06/26/2017 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 CONTENT EDITOR Ot Y99.8 OTHER EXTERNAL CAUSE STATUS 06/26/2017 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 CONTENT EDITOR Ot M48.02 SPINAL STENOSIS, CERVICAL REGION 06/26/2017 ISSA SALOMON INFORMATICA Ot M54.2 CERVICALGIA 06/26/2017 ISSA SALOMON INFORMATICA Ot S19.9XXA UNSPECIFIED INJURY OF NECK, INITIAL ENCO 06/26/2017 ISSA SALOMON INFORMATICA Ot W19.XXXA UNSPECIFIED FALL, INITIAL ENCOUNTER 06/26/2017 ISSA SALOMON INFORMATICA Ot Y99.8 OTHER EXTERNAL CAUSE STATUS 06/26/2017 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 CONTENT EDITOR Ot M25.571 PAIN IN RIGHT ANKLE AND JOINTS OF RIGHT 06/26/2017 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 CONTENT EDITOR Ot M25.572 PAIN IN LEFT ANKLE AND JOINTS OF LEFT FO 06/26/2017 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 ROMAN Ot W19.XXXA UNSPECIFIED FALL, INITIAL ENCOUNTER 06/26/2017 VARSHABROOKS Celina OWENS Ot Y99.8 OTHER EXTERNAL CAUSE STATUS 06/26/2017 VARSHABROOKS Celina OWENS Ot M25.371 OTHER INSTABILITY, RIGHT ANKLE 06/26/2017 MADDOXBROOKS ROMAN Ot M25.571 PAIN IN RIGHT ANKLE AND JOINTS OF RIGHT 06/26/2017 AYLEEN SUAREZ DO Ot M54.16 RADICULOPATHY, LUMBAR REGION 07/02/2017 AYLEEN SUAREZ DO Ot M46.1 SACROILIITIS, NOT ELSEWHERE CLASSIFIED 07/23/2017 AYLEEN SUAREZ DO Ot M46.1 SACROILIITIS, NOT ELSEWHERE CLASSIFIED Procedures Code Description [place] [address] PSYCH DIAGNOSTIC EVALUATION 03/14/2013 33241 PSYTX PT&/FAMILY 45 MINUTES 04/06/2013 63632 PSYTX PT&/FAMILY 45 MINUTES 06/15/2013 05696 PSYTX PT&/FAMILY 45 MINUTES 08/03/2013 48497 PSYTX PT&/FAMILY 45 MINUTES 08/28/2013 80777 PSYTX PT&/FAMILY 45 MINUTES 09/25/2013 94024 PSYTX PT&/FAMILY 45 MINUTES 10/20/2013 61188 PSYTX PT&/FAMILY 45 MINUTES 12/01/2013 59790 PSYTX PT&/FAMILY 45 MINUTES 12/19/2013 77231 PSYTX PT&/FAMILY 45 MINUTES 01/11/2014 08374 PSYTX PT&/FAMILY 30 MINUTES 02/16/2014 08707 PSYTX PT&/FAMILY 45 MINUTES 02/23/2014 23786 PSYTX PT&/FAMILY 45 MINUTES 03/23/2014 29678 PSYTX PT&/FAMILY 45 MINUTES 03/30/2014 78888 PSYTX PT&/FAMILY 45 MINUTES 04/17/2014 78619 PSYTX PT&/FAMILY 45 MINUTES 05/07/2014 11214 PSYTX PT&/FAMILY 45 MINUTES 07/12/2014 03315 PSYTX PT&/FAMILY 30 MINUTES 09/17/2014 48830 PSYTX PT&/FAMILY 45 MINUTES 10/01/2014 Results Test Result Range Complete blood count (CBC) with automated white blood cell (WBC) differential - 09/09/17 03:00 Blood leukocytes automated count (number/volume) 9.1 10*3/uL 4.3-11.0 Blood erythrocytes automated count (number/volume) 3.74 10*6/uL 4.35-5.85 Venous blood hemoglobin measurement (mass/volume) 12.2 g/dL 11.5-16.0 Blood hematocrit (volume fraction) 37 % 35-52 Automated erythrocyte mean corpuscular volume 99 [foz_us] 80-99 Automated erythrocyte mean corpuscular hemoglobin (mass per erythrocyte) 33 pg 25-34 Automated erythrocyte mean corpuscular hemoglobin concentration measurement ( mass/volume) 33 g/dL 32-36 Automated erythrocyte distribution width ratio 12.8 % 10.0-14.5 Automated blood platelet count (count/volume) 238 10*3/uL 130-400 Automated blood platelet mean volume measurement 8.8 [foz_us] 7.4-10.4 Automated blood neutrophils/100 leukocytes 57 % 42-75 Automated blood lymphocytes/100 leukocytes 32 % 12-44 Blood monocytes/100 leukocytes 11 % 0-12 Automated blood eosinophils/100 leukocytes 1 % 0-10 Automated blood basophils/100 leukocytes 0 % 0-10 Blood neutrophils automated count (number/volume) 5.2 10*3 1.8-7.8 Blood lymphocytes automated count (number/volume) 2.9 10*3 1.0-4.0 Blood monocytes automated count (number/volume) 1.0 10*3 0.0-1.0 Automated eosinophil count 0.1 10*3/uL 0.0-0.3 Automated blood basophil count (count/volume) 0.0 10*3/uL 0.0-0.1 Comprehensive metabolic panel - 09/09/17 03:00 Serum or plasma sodium measurement (moles/volume) 138 mmol/L 135-145 Serum or plasma potassium measurement (moles/volume) 2.9 mmol/L 3.6-5.0 Serum or plasma chloride measurement (moles/volume) 101 mmol/L 98-107 Carbon dioxide 22 mmol/L 21-32 Serum or plasma anion gap determination (moles/volume) 15 mmol/L 5-14 Serum or plasma urea nitrogen measurement (mass/volume) 14 mg/dL 7-18 Serum or plasma creatinine measurement (mass/volume) 0.80 mg/dL 0.60-1.30 Serum or plasma urea nitrogen/creatinine mass ratio 18 NRG Serum or plasma creatinine measurement with calculation of estimated glomerular filtration rate > NRG Serum or plasma glucose measurement (mass/volume) 112 mg/dL 70-105 Serum or plasma calcium measurement (mass/volume) 9.5 mg/dL 8.5-10.1 Serum or plasma total bilirubin measurement (mass/volume) 0.6 mg/dL 0.1-1.0 Serum or plasma alkaline phosphatase measurement (enzymatic activity/volume) 64 U/L 40-136 Serum or plasma aspartate aminotransferase measurement (enzymatic activity/ volume) 18 U/L 5-34 Serum or plasma alanine aminotransferase measurement (enzymatic activity/volume ) 23 U/L 0-55 Serum or plasma protein measurement (mass/volume) 7.4 g/dL 6.4-8.2 Serum or plasma albumin measurement (mass/volume) 4.7 g/dL 3.2-4.5 Lipase - 09/09/17 03:00 Lipase 32 U/L 8-78 Serum or plasma C reactive protein measurement (mass/volume) - 09/09/17 03:00 Serum or plasma C reactive protein measurement (mass/volume) 0.75 mg /dL 0.00-0.50 Erythrocyte sedimentation rate by westergren method - 09/09/17 03:00 Erythrocyte sedimentation rate by westergren method 16 mm 0-30 Complete urinalysis with reflex to culture - 09/09/17 04:29 Urine color determination YELLOW NRG Urine clarity determination SLIGHTLY CLOUDY NRG Urine pH measurement by test strip 5 5-9 Specific gravity of urine by test strip 1.025 1.016- 1.022 Urine protein assay by test strip, semi-quantitative 1+ NEGATIVE Urine glucose detection by automated test strip NEGATIVE NEGATIVE Erythrocytes detection in urine sediment by light microscopy NEGATIVE NEGATIVE Urine ketones detection by automated test strip 2+ NEGATIVE Urine nitrite detection by test strip NEGATIVE NEGATIVE Urine total bilirubin detection by test strip NEGATIVE NEGATIVE Urine urobilinogen measurement by automated test strip (mass/volume) NORMAL NORMAL Urine leukocyte esterase detection by dipstick 2+ NEGATIVE Automated urine sediment erythrocyte count by microscopy (number/high power field) NONE NRG Automated urine sediment leukocyte count by microscopy (number/high power field ) [HPF] NRG Bacteria detection in urine sediment by light microscopy MODERATE NRG Squamous epithelial cells detection in urine sediment by light microscopy 0-2 NRG Crystals detection in urine sediment by light microscopy NONE NRG Casts detection in urine sediment by light microscopy NONE NRG Mucus detection in urine sediment by light microscopy MODERATE NRG Complete urinalysis with reflex to culture YES NRG Encounters ACCT No. Visit Date/Time Discharge Status Pt. Type Provider Facility Loc./Unit Complaint [id number] 10/01/2014 13:06:00 10/01/2014 23:59:59 YOMI Benavides PHD [id number] 09/17/2014 10:59:00 09/17/2014 23:59:59 YOMI Benavides PHD [id number] 07/12/2014 14:55:00 07/12/2014 23:59:59 YOMI Benavides PHD [id number] 05/07/2014 16:00:00 05/07/2014 23:59:59 [facility] Outpatient YOMI CARBALLO PHD [id number] 04/17/2014 14:05:00 04/17/2014 23:59:59 [facility] Outpatient YOMI CARBALLO PHD [id number] 03/30/2014 16:05:00 03/30/2014 23:59:59 [facility] Outpatient YOMI CARBALLO PHD [id number] 03/23/2014 15:59:00 03/23/2014 23:59:59 [facility] Outpatient YOMI CARBALLO PHD [id number] 03/17/2014 13:39:00 03/17/2014 23:59:59 NENA CARCAMO APRN MELO Meeks [id number] 02/23/2014 11:07:00 02/23/2014 23:59:59 [facility] Outpatient YOMI CARBALLO PHD [id number] 02/16/2014 15:09:00 02/16/2014 23:59:59 [facility] Outpatient YOMI CARBALLO PHD [id number] 01/11/2014 14:06:00 01/11/2014 23:59:59 [facility] Outpatient YOMI CARBALLO PHD [id number] 12/19/2013 13:06:00 12/19/2013 23:59:59 [facility] Outpatient YOMI CARBALLO PHD [id number] 12/01/2013 14:58:00 12/01/2013 23:59:59 [facility] Outpatient YOMI CARBALLO PHD [id number] 10/20/2013 13:10:00 10/20/2013 23:59:59 C[facility] Outpatient YOMI CARBALLO PHD [id number] 09/25/2013 12:55:00 09/25/2013 23:59:59 CLS Outpatient YOMI CARBALLO PHD [id number] 08/28/2013 12:57:00 08/28/2013 23:59:59 CLS Outpatient YOMI CARBALLO PHD [id number] 08/03/2013 12:49:00 08/03/2013 23:59:59 CLS Outpatient YOMI CARBALLO PHD [id number] 06/14/2013 15:03:00 06/14/2013 23:59:59 NENA Outpatient YOMI CARBALLO PHD [id number] 04/06/2013 14:04:00 04/06/2013 23:59:59 CLS Outpatient YOMI CARBALLO PHD [id number] 03/14/2013 10:02:00 03/14/2013 23:59:59 CLS Outpatient YOMI CARBALLO PHD [id number] 04/21/2017 12:21:47 04/21/2017 23:59:59 CLS Outpatient [id number] 02/26/2015 13:04:35 ACT Document Registration [id number] 08/24/2017 14:00:00 08/24/2017 23:59:59 CLS Out[facility] [id number] 07/01/2017 13:34:00 07/01/2017 23:59:59 CLS Outpatient AYLEEN SUAREZ DO [facility] CARD SACRILITIS M46.1 [id number] 04/19/2017 19:33:00 04/19/2017 23:04:00 DIS Emergency JULIETTE BECERRA [facility] ER BLURRY VISION,SLURRED SPEECH POST HEAD LAC [id number] 04/17/2017 22:15:00 04/18/2017 01:21:00 DIS Emergency JULIETTE BECERRA [facility] ER HEAD LACERATION AFTER FALL [id number] 11/14/2016 19:55:00 11/15/2016 07:29:00 DIS Outpatient JOSE RUBALCAVA MD [facility] SLEEP OBSTRUCTIVE SLEEP APNEA [id number] 09/28/2016 13:00:00 09/28/2016 23:59:59 CLS Outpatient AYLEEN SUAREZ DO [facility] RAD M54.16 [id number] 08/24/2016 09:50:00 08/24/2016 23:59:59 CLS Outpatient 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 CONTENT EDITOR [facility] RAD R ANKLE PAIN [id number] 07/31/2016 16:04:00 07/31/2016 23:59:59 CLS Outpatient 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 CONT[employer] EDITOR [facility] RAD BILAT ANKLE PAIN, FALL [id number] 07/15/2016 14:36:00 07/15/2016 23:59:59 CLS Outpatient ISSA SALOMON APRN [facility] RAD NECK PAIN,FALL [id number] 06/16/2016 11:26:00 06/16/2016 23:59:59 CLS Outpatient 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 [employer] EDITOR [facility] RAD NECK PAIN [id number] 04/03/2016 14:49:00 04/03/2016 23:59:59 CLS Outpatient 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 CONT[employer] EDITOR [facility] RAD STERNUM PAIN [id number] 03/07/2016 13:38:00 03/07/2016 23:59:59 CLS Outpatient ISSA SALOMON APRN [facility] RAD LOW BACK PAIN [id number] 03/02/2016 20:09:00 03/02/2016 20:15:00 DIS Emergency FINN NO, CALLUM Meeks [facility] ER FALL,ANXIETY [id number] 10/22/2015 00:09:00 10/22/2015 23:59:59 CLS Preadmit 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 CONT[employer] EDITOR [facility] VIT B DEFICIENCY [id number] 09/13/2015 15:45:00 10/21/2015 00:01:00 DIS Outpatient 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 CONT[employer] EDITOR [facility] VIT B DEFICIENCY [id number] 08/15/2015 16:54:00 08/15/2015 23:59:59 CLS Outpatient 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 CONT[employer] EDITOR Via [facility] RAD NECK PAIN [id number] 05/06/2015 13:29:00 07/02/2015 00:01:00 DIS Outpatient 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 CONTENT EDITOR [facility] VIT B DEFICIENCY [id number] 06/25/2015 15:38:00 06/25/2015 23:59:59 CLS Outpatient 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 CONTENT EDITOR [facility] RAD RIGHT FOOT PAIN [id number] 05/23/2015 17:13:00 05/23/2015 23:59:59 CLS Outpatient ROSAROBERT WEST R CONTENT EDITOR [facility] QUICK [id number] 02/26/2015 13:04:00 03/06/2015 00:01:00 DIS Outpatient 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 CONTENT EDITOR [facility] VIT B DEFICIENCY [id number] 02/22/2015 11:43:00 02/22/2015 12:10:00 DIS Outpatient VARSHABROOKS CONTENT EDITOR [facility] REHAB R KNEE PAIN; R LEG WEAKNESS [id number] 01/08/2015 16:42:00 01/08/2015 23:59:59 CLS Outpatient KIMBERLI MONDRAGON CONTENT EDITOR [facility] QUICK [id number] 11/15/2014 00:11:00 11/15/2014 23:59:59 CLS Preadmit 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 CONTENT EDITOR [facility] VIT B DEFICIENCY [id number] 11/14/2014 14:31:00 11/14/2014 00:01:00 DIS Outpatient 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 CONTENT EDITOR [facility] VIT B DEFICIENCY [id number] 06/05/2014 13:02:00 06/24/2014 00:01:00 DIS Outpatient 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 CONTENT EDITOR [facility] VIT B DEFICIENCY [id number] 06/05/2014 13:23:00 06/05/2014 23:59:59 CLS Outpatient MADDOXBROOKS CONTENT EDITOR [facility] RAD RT ANKLE PAIN [id number] 12/13/2013 15:29:00 12/13/2013 23:59:59 CLS Outpatient SAILAJA NO, SVETLANA Aguilera [facility] RT RESPIRATORY DISTRESS, ACUTE BRONCHOSPASM [id number] 10/27/2013 13:01:00 11/27/2013 00:01:00 DIS Outpatient 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 [facility] VIT B DEFICIENCY [id number] 05/09/2013 02:23:00 05/09/2013 04:14:00 DIS Emergency FINN NO, CALLUM Meeks [facility] ER LEFT LEG PAIN-FALL [id number] 09/09/2017 03:10:00 Document Registration [id number] 09/15/2012 08:29:00 Document Registration [id number] 07/21/2012 09:36:00 Document Registration [id number] 06/03/2012 06:09:00 Document Registration [id number] 03/07/2012 16:08:00 Document Registration [id number] 02/15/2012 13:54:00 Document Registration [id number] 12/21/2011 14:00:00 Document Registration [id number] 11/23/2011 11:36:00 Document Registration [id number] 06/29/2011 15:31:00 Document Registration [id number] 04/24/2011 20:13:00 Document Registration [id number] 03/12/2011 16:29:00 Document Registration [id number] 02/02/2011 11:28:00 Document Registration [id number] 11/20/2010 14:28:00 Document Registration [id number] 07/07/2010 11:10:00 Document Registration [id number] 05/08/2010 15:39:00 Document Registration [id number] 11/21/2009 10:52:00 Document Registration
== END 2017-09-09 06:05 | disposition home or self-care (01) ==
LOC: EDUNIT# 02:46 → ER 02:48
DX: K50.919 Crohn's disease, unspecified, with unspecified complications (principal); N39.0 Urinary tract infection, site not specified; E87.6 Hypokalemia; J44.9 Chronic obstructive pulmonary disease, unspecified; K21.9 Gastro-esophageal reflux disease without esophagitis; I10 Essential (primary) hypertension; F32.9 Major depressive disorder, single episode, unspecified; G43.909 Migraine, unspecified, not intractable, without status migrainosus; G47.30 Sleep apnea, unspecified; Z88.2 Allergy status to sulfonamides; Z90.710 Acquired absence of both cervix and uterus; Z91.048 Other nonmedicinal substance allergy status; Z79.51 Long term (current) use of inhaled steroids; Z79.52 Long term (current) use of systemic steroids
CPT/HCPCS: 36415; 74177; 80053; 81000; 83690; 85025; 85652; 86141; 87088; 96361; 96365; 96375

== ENCOUNTER 2018-04-01 19:35 | Outpatient (CLI) | payer MEDICARE ==
[~2018-04-01 19:35] MED LIST changes: +CIPR-225 PO; +LACT10SO46; +METR500T PO; +ONDA4TAB8 SL; +PRD20T PO; +PROM25TA14; +TRAM50TA2
== END 2018-04-02 08:15 | disposition home or self-care (01) ==
LOC: SLEEP 19:35
PROVIDERS: ATTEND Otolaryngology Otolaryngology/Facial Plastic Surgery
DX: G47.33 Obstructive sleep apnea (adult) (pediatric) (principal)
CPT/HCPCS: 95811

== ENCOUNTER 2018-08-03 05:27 | Emergency (ER) | payer MEDICARE ==
[~2018-08-03] VITALS: Ht 172.7 cm; Wt 99.8 kg
--- OUTSIDE RECORDS SUMMARY | 2018-08-03 05:34 | XMS REPORT | Encounter Summary ---
Author Author [facility] Organization [facility] Address Unknown Phone Unavailable Care Team Providers Care Solar Panel Installation Supervisor Name Role Phone Aicha Thompson MD PCP Reason for Visit * Reason Comments Pain Encounter Details Care Team Description Date Type Department Ibis Ching RN Pain 08/02/2018 Telephone [facility] [address] [place] [address] Social History Date Tobacco Use Types Packs/Day Years Used Never Smoker Smokeless Tobacco: Never Used Alcohol Use Drinks/Week oz/Week Comments No Sex Assigned at Date Recorded Not on file Industry Job Start Date Occupation Not on file Not on file Not on file Travel End Travel History Travel Start No recent travel history available. as of this encounter Functional Status Date of Assessment Functional Status Response 04/14/2018 Does the patient have a hearing impairment: No 04/14/2018 Does the patient have a visual impairment: Yes 04/14/2018 Does the patient have impaired ambulation: No 04/14/2018 Does the patient have an activity of daily living No (ADL) impairment: 04/14/2018 Does the patient have an instrumental activity of No daily living (IADL) impairment: Date of Assessment Cognitive Status Response 04/14/2018 Does the patient have a cognitive impairment: No as of this encounter Miscellaneous Notes * Telephone Encounter - Ibis Ching RN - 08/02/2018 4:36 PM [employer] 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 May repeat at upcoming clinic appointment. Patient also asks if Dr. Burkett could check the bag around her brain due to her history of concussions. Review that Dr. Burkett will not be able to check "her brain", help with her memory issues or do EMGs. Greater than 35 minutes spent with patient over the phone. PROCESSING CENTER MANAGER in this encounter Plan of Treatment Not on fileas of this encounter Visit Diagnoses Not on filein this encounter
--- OUTSIDE RECORDS SUMMARY | 2018-08-03 05:34 | XMS REPORT | Clinical Summary ---
Author Author [facility] Organization [facility] Address Unknown Phone Unavailable Care Team Providers Care Project Engineering Manager Name Role Phone Aicha Thompson MD PCP Source Comments Some departments are not documenting in the electronic medical record. If you do not see the information that you expected, contact Release of Information in the Health Information Management department at [phone] for further assistance in locating additional records.[facility] Allergies Comments Active Allergy Reactions Severity Noted Date Latex HIVES Medium 04/09/2017 Sulfa (Sulfonamide UNKNOWN Low 04/09/2017 Antibiotics) Medications End Date Status Medication Sig Dispensed Refills Start Date Active venlafaxine XR (EFFEXOR Take 150 mg 0 XR) 150 mg capsule by mouth daily. Take with food. Active cyclobenzaprine Take 10 mg by 0 (FLEXERIL) 10 mg tablet mouth three times daily as needed for Muscle Cramps. Active HYDROcodone/acetaminophen Take 1 tablet 0 (+) (NORCO) 10/325 mg by mouth tablet every 6 hours as needed for Pain Active diazePAM (VALIUM) 10 mg Take 10 mg by 0 tablet mouth every 6 hours as needed for Anxiety. Active metoprolol tartrate Take 25 mg by 0 (LOPRESSOR) 25 mg tablet mouth twice daily. Active traZODone (DESYREL) 100 Take 100 mg 0 mg tablet by mouth at bedtime daily. Active QUEtiapine (SEROQUEL) 100 Take 100 mg 0 mg tablet by mouth twice daily. Active atorvastatin (LIPITOR) 20 Take 20 mg by 0 mg tablet mouth daily. Active milnacipran(+) (SAVELLA) Take by 0 100 mg tablet mouth. Active pantoprazole DR Take 40 mg by 0 (PROTONIX) 40 mg tablet mouth daily. Active PREDNISONE PO Take by 0 mouth. Active budesonide/formoterol Inhale 2 0 (SYMBICORT) 160/4.5 mcg puffs by inhalation mouth into the lungs twice daily. Active ACETAMINOPHEN (TYLENOL Take by 0 PO) mouth. Active traMADol (ULTRAM) 50 mg Take 50 mg by 0 tablet mouth every 6 hours as needed for Pain. Active loratadine (CLARITIN) 10 Take 10 mg by 0 mg tablet mouth every morning. Active magnesium oxide (MAG-OX) Take 400 mg 0 400 mg tablet by mouth daily. Active LACTOBACILLUS ACIDOPHILUS Take by 0 (ACIDOPHILUS PO) mouth. Active INFLIXIMAB (REMICADE IV) Administer 0 through vein. Active niacin ER (NIASPAN) 500 Take 500 mg 0 mg tablet by mouth twice daily. Take with food. Active vitamins, B complex tab Take 1 tablet 0 by mouth daily. Active cyanocobalamin (VITAMIN Inject 1 mL 0 B-12, RUBRAMIN) 1,000 into the mcg/mL injection muscle every 30 days. Active D-MANNOSE PO Take by 0 mouth. Active fish oil- omega 3-DHA/EPA Take 1 0 300/1,000 mg capsule capsule by mouth daily. Active cholecalciferol (VITAMIN Take 1,000 0 D-3) 1,000 units tablet Units by mouth daily. Active calcium carbonate Take 1,250 mg 0 (OS-SHANTE) 260 mg calcium by mouth (648 mg) tab daily. Active MELATONIN PO Take by 0 mouth. Active VALERIAN PO Take by 0 mouth. Active ASCORBATE CALCIUM Take by 0 (VITAMIN C PO) mouth. Active atorvastatin (LIPITOR) 20 . 0 mg tablet 7 Active cyclobenzaprine . 0 (FLEXERIL) 10 mg tablet 7 Active diazePAM (VALIUM) 10 mg . 0 tablet 7 Active HYDROcodone/acetaminophen . 0 (+) (NORCO) 10/325 mg 7 tablet Active metoprolol tartrate . 0 (LOPRESSOR) 25 mg tablet [address] 0 (PROTONIX) 40 mg tablet 7 Active prednisone (DELTASONE) 5 . 0 mg tablet 6 Active Problems Problem Noted Date Somatoform disorder 07/16/2017 KYUNG positive 07/16/2017 Idiopathic polyneuropathy 05/18/2017 Cervical stenosis of spine 04/09/2017 Resolved Problems Problem Noted Date Resolved Date Miosis 04/09/2017 07/16/2017 Numbness in feet 04/09/2017 05/18/2017 Encounters Care Team Description Date Type Specialty Ibis Ching RN Pain 08/02/2018 Telephone Anesthesia Pain from Last 3 Months Family History Medical [...] Grandmother Sister Alive Sister Alive Social History Date Tobacco Use Types Packs/Day Years Used Never Smoker Smokeless Tobacco: Never Used Alcohol Use Drinks/Week oz/Week Comments No Sex Assigned at Date Recorded Not on file Industry Job Start Date Occupation Not on file Not on file Not on file Travel End Travel History Travel Start No recent travel history available. Last Filed Vital Signs Time Taken Vital Sign Reading 04/14/2018 10:40 AM BEAD PICKER Blood Pressure 134/80 04/14/2018 10:40 AM BEAD PICKER Pulse 109 07/16/2017 10:30 AM BEAD PICKER Temperature 36 C (96.8 F) 04/14/2018 10:40 AM BEAD PICKER Respiratory Rate 18 04/14/2018 10:40 AM BEAD PICKER Oxygen Saturation 93% - Inhaled Oxygen - Concentration 04/14/2018 10:40 AM BEAD PICKER Weight 91.2 kg (201 lb) 04/14/2018 10:40 AM BEAD PICKER Height 175.3 cm (5' 9") 04/14/2018 10:40 AM BEAD PICKER Body Mass Index 29.68 Plan of Treatment Health Maintenance Due Date Last Done Comments PHYSICAL (COMPREHENSIVE) 08/25/1974 EXAM DTAP/TDAP VACCINES (1 - 08/25/1985 Tdap) CERVICAL CANCER SCREENING 08/25/1997 BREAST CANCER SCREENING 2007 COLORECTAL CANCER 08/25/2017 SCREENING SHINGLES RECOMBINANT 08/25/2017 VACCINE (1 of 2) INFLUENZA VACCINE 01/05/2018 04/15/2009, 04/04/2007, 03/18/2006 HIV SCREENING Completed 04/10/2017 Results Not on filefrom Last 3 Months Insurance Payer Benefit Subscriber ID Type Phone Address Plan / Group MEDICARE MEDICARE xxxxxxxxxx Medicare PART A AND B BCBS [place] BCBS xxxxxxxxxxxx Medicare SUPPLEMENT Advance Directives Patient has advance care planning documents on file. For more information, please contact: [facility] [address] [place] [address]
--- OUTSIDE RECORDS SUMMARY | 2018-08-03 05:34 | XMS REPORT ---
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 Active [id number] Problem Acute pharyngitis 462 Active 209329368 Problem Post-traumatic stress disorder, chronic F43.12 Active 478914303 Problem High risk medication use Z79.899 Active [id number] ALLERGIES No Information ENCOUNTERS Encounter Location Date Diagnosis [facility] [id number] [place] [address] 14279- 0443 Jun, [facility] [id number] [place] [address] 21980- 7860 May, [facility] [id number] [place] [address] 33917- 8095 Apr, [facility] [id number] [place] [address] 95935- 2824 Apr, [facility] [id number] [place] [address] 28409- 2521 Mar, Post-traumatic stress disorder, chronic F43.12 ; Delusional disorder F22 ; Personality disorder in adult F60.9 and 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 [facility] [id number] [place] [address] 02048- 3880 Mar, [facility] [id number] [place] [address] 82226- 2297 Mar, Paranoid personality disorder F60.0 [facility] [address] [address] Feb, Post-traumatic stress disorder, chronic F43.12 and Paranoid personality disorder F60.0 [facility] [address] [address] 2546 Feb, 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 ; Post-traumatic stress disorder, chronic F43.12 ; Paranoid personality disorder F60.0 ; High risk medication use Z79.899 and Personality disorder in adult F60.9 [facility] [address] [address]- 2226 Feb, [facility] [id number] [place] [address] 50610- 6390 17 Feb, 2018 Major depressive disorder, recurrent episode, moderate F33.1 ; Paranoid personality disorder F60.0 and 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 [facility] [id number] [place] [address] 32072- 1267 14 Feb, 2018 [facility] [id number] [place] [address] 47610- 4963 04 Feb, 2018 [facility] [id number] [place] [address] 16898- 9484 30 Jan, 2018 Major depressive disorder, recurrent episode, moderate F33.1 ; Paranoid personality disorder F60.0 and 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 [facility] [address] [address]- 0490 Jan, [facility] [id number] [place] [address] 29447- 0016 Jan, [facility] [id number] [place] [address] 96748- 0880 10 Jan, 2018 Major depressive disorder, recurrent episode, moderate F33.1 ; Paranoid personality disorder F60.0 and 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 [facility] [id number] [place] [address] 40637- 1332 Jan, Major depressive disorder, recurrent episode, moderate F33.1 ; Paranoid personality disorder F60.0 and 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 [facility] [address] [address] [address]602 Dec, 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 ; Post-traumatic stress disorder, chronic F43.12 ; Paranoid personality disorder F60.0 ; High risk medication use Z79.899 and Personality disorder in adult F60.9 [facility] [id number] [address]- 2988 Dec, Major depressive disorder, recurrent episode, moderate F33.1 ; Paranoid personality disorder F60.0 and 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 [facility] [address] [address]- 1335 Dec, Major depressive disorder, recurrent episode, moderate F33.1 ; Paranoid personality disorder F60.0 and 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 [facility] [address] [address]- 3004 Dec, [facility] [id number] [address]- 8898 Nov, [facility] [address] [address]- 3904 Nov, Major depressive disorder, recurrent episode, moderate F33.1 ; Paranoid personality disorder F60.0 and 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 [facility] [id number] [address]- 0797 Nov, [facility] [id number] [address]- 4895 Nov, [facility] [address] [address]- 8690 Nov, Major depressive disorder, recurrent episode, moderate F33.1 ; Paranoid personality disorder F60.0 and 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 [facility] [address] [address]- 0687 Nov, [facility] [id number] [place] [address] 01923- 6627 Nov, [facility] [address] [address]- 2411 October, 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 ; Post-traumatic stress disorder, chronic F43.12 ; Paranoid personality disorder F60.0 ; High risk medication use Z79.899 and Personality disorder in adult F60.9 [place] [facility] [address] [address]- 4876 October, Major depressive disorder, recurrent episode, moderate F33.1 ; Paranoid personality disorder F60.0 and 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 [place] [facility] [address] [address]- 1249 October, Major depressive disorder, recurrent episode, moderate F33.1 ; Paranoid personality disorder F60.0 and 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 [place] [facility] [address] [address]- 3355 Sep, Major depressive disorder, recurrent episode, moderate F33.1 ; Paranoid personality disorder F60.0 and 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 [place] [facility] [address] [address]- 1675 Sep, Major depressive disorder, recurrent episode, moderate F33.1 and 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 [place] [facility] [address] [address]- 0695 Aug, Major depressive disorder, recurrent episode, moderate F33.1 and 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 [place] [address] [address]- 9285 Jul, Major depressive disorder, recurrent episode, moderate F33.1 and 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 [place] [facility] [id number] [place] [address] 17564- 4798 Jul, Major depressive disorder, recurrent episode, moderate F33.1 and 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 [facility] [facility] [id number] [place] [address] 47876- 6865 Jun, Major depressive disorder, recurrent episode, moderate F33.1 and 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 [place] [id number] [place] [address] 87213- 0791 Jun, Major depressive disorder, recurrent episode, moderate F33.1 and 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 [facility] [id number] [place] [address] 61213- 1885 May, Major depressive disorder, recurrent episode, moderate F33.1 and 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 [facility] [facility] [id number] [place] [address] 38323- 6481 May, Major depressive disorder, recurrent episode, moderate F33.1 and 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 [facility] [id number] [place] [address] 69531- 2933 Apr, [facility] [id number] [place] [address] 21167- 1084 Apr, Major depressive disorder, recurrent episode, moderate F33.1 and 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 [place] [address] [address]- 8491 Mar, Major depressive disorder, recurrent episode, moderate F33.1 and 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 [place] [id number] [place] [address] 57670- 2314 Mar, Major depressive disorder, recurrent episode, moderate F33.1 [place] [id number] [place] [address] 47835- 6036 Feb, Major depressive disorder, recurrent episode, moderate F33.1 [place] [address] [address]- 2950 Jan, Major depressive disorder, recurrent episode, moderate F33.1 [facility] [address] [facility] [id number] [address]- 7704 Jan, Major depressive disorder, recurrent episode, moderate F33.1 [facility] [address] [facility] [id number] [address]- 3596 Dec, Major depressive disorder, recurrent episode, moderate F33.1 [facility] [id number] [address]- 4666 Dec, Major depressive disorder, recurrent episode, moderate F33.1 [facility] [id number] [address]- 0726 Jul, Major depressive disorder, recurrent episode, moderate F33.1 [facility] [id number] [address]- 8806 Jul, Major depressive disorder, recurrent episode, moderate F33.1 [facility] [address] [address]- 4325 Jun, Major depressive disorder, recurrent episode, moderate F33.1 [facility] [address] [address]- 1730 May, Major depressive disorder, recurrent episode, moderate F33.1 [facility] [address] [address]- 8026 Apr, Major depressive disorder, recurrent episode, moderate F33.1 [facility] [address] [address]- 9606 Mar, [facility] [id number] [address]- 9136 Feb, Major depressive disorder, recurrent episode, moderate F33.1 [facility] [id number]- 5326 Jan, Major depressive disorder, recurrent episode, moderate F33.1 [facility] [address] [address]- 7256 Dec, Major depressive disorder, recurrent episode, moderate F33.1 [facility] [address] [address]- 7186 Nov, Major depressive disorder, recurrent episode, moderate F33.1 [facility] [address] [address]- 2546 Jul, Major depressive disorder, recurrent episode, moderate F33.1 [facility] [address] [address]- 3716 Jan, Major depressive disorder, recurrent episode, moderate 296.32 [facility] [address] [address]- 2595 Jan, Major depressive disorder, recurrent episode, moderate 296.32 [facility] [address] [address]- 3636 Dec, Major depressive disorder, recurrent episode, moderate 296.32 [facility] [address] 2730 Dec, Major depressive disorder, recurrent episode, moderate 296.32 [facility] [address] 4586 Nov, Major depressive disorder, recurrent episode, moderate 296.32 [facility] [address] [address]- 3066 October, Major depressive disorder, recurrent episode, moderate 296.32 [facility] [address] [address]- 6416 Sep, [facility] [address] [address]- 6336 Sep, [facility] [address] [address]- 4056 30 Aug, 2014 [facility] [address] [address]- 4546 16 Aug, 2014 [facility] [place] [facility] [address] [id number] [place] [address]- 5144 Aug, [facility] [place] [facility] [address] [id number] [place] [address]- 7831 Aug, [facility] [place] [facility] [address] [id number] [place] [address]- 6993 Aug, [facility] [place] [facility] [address] [id number] [place] [address]- 0904 Jul, 2014 [facility] [place] [facility] [address] [id number] [place] [address]- 2507 Jul, 2014 [facility] [place] [facility] [address] [id number] [place] [address]- 0674 Jul, [facility] [place] [facility] [address] [id number] [place] [address]- 7028 Jul, [facility] [place] [facility] [address] [id number] [place] [address]- 6315 Jun, [facility] [place] [facility] [address] [id number] [place] [address]- 8519 Jun, [facility] [place] [facility] [address] [facility] [id number] [place] [address]- 1510 May, [facility] [place] [facility] [address] [id number] [place] [address]- 7627 May, [facility] [place] [facility] [address] [id number] [place] [address]- 5985 Apr, [facility] [place] [facility] [address] [id number] [place] [address]- 5456 Apr, [facility] [place] [facility] [address] [id number] [place] [address]- 3171 Mar, [facility] [place] [facility] [address] [id number] [place] 8973 Mar, [facility] [place] [facility] [address] [id number] [place] [address]- 4833 Mar, [facility] [place] [facility] [address] [id number] [place] [address]- 9130 Mar, [facility] [place] [facility] [address] [id number] [place] [address]- 9224 Mar, [facility] [place] [facility] [address] [id number] [place] [address]- 9368 Mar, [facility] [place] [facility] [address] [id number] [place] [address]- 0659 Mar, [facility] [place] [facility] [address] [id number] [place] [address]- 4096 Mar, [facility] [place] [facility] [address] [id number] [place] [address]- 3323 Feb, [facility] [place] [facility] [address] [id number] [place] [address]- 7116 Feb, [facility] [place] [facility] [address] [id number] [place] [address]- 3146 Feb, [facility] [place] [facility] [address] [id number] [place] [address]- 4084 Feb, [facility] [place] [facility] [address] [facility] [id number] [place] [address]- 1859 Jan, [facility] [place] [facility] [address] [id number] [place] [address]- 1708 Jan, [facility] [place] [facility] [address] [id number] [place] [address]- 8829 Dec, [facility] [place] [facility] [address] [id number] [place] [address]- 3117 Dec, [facility] [place] [facility] [address] [facility] [id number] [place] [address]- 1081 Nov, [facility] [place] [facility] [address] [facility] [id number] [place] [address]- 8407 Nov, [facility] [place] [facility] [address] [id number] [place] [address]- 8888 October, [facility] [place] [facility] [address] [id number] [place] [address]- 2684 October, [facility] [place] [facility] [address] [id number] [place] [address]- 3675 Sep, [facility] [place] [facility] [address] [id number] [place] [address]- 6471 Sep, [facility] [place] [facility] [address] [id number] [place] [address]- 9240 Aug, [facility] [place] [facility] [address] [id number] [place] [address]- 5111 Aug, [facility] [place] [facility] [address] [id number] [place] [address]- 4782 Jul, [facility] [place] [facility] [address] [id number] [place] [address]- 8879 Jul, [facility] [place] [facility] [address] [id number] [place] [address]- 3761 Jun, [facility] [place] [facility] [address] [id number] [place] [address]- 9988 Jun, [facility] [place] [facility] [address] [id number] [place] [address]- 5126 Mar, [facility] [place] [facility] [address] [id number] [place] [address]- 0298 Mar, [facility] [place] [facility] [address] [id number] [place] [address]- 0283 Mar, [facility] [place] [facility] [address] [id number] [place] [address]- 6283 Mar, [facility] [place] [facility] [address] [id number] [place] 0219 Mar, [facility] [place] [facility] [address] [id number] [place] [address]- 2818 May, IMMUNIZATIONS No Known Immunizations SOCIAL HISTORY Never Assessed REASON FOR VISIT Routine nurse call PLAN OF CARE VITAL SIGNS MEDICATIONS Unknown Medications RESULTS No Results PROCEDURES No Known procedures INSTRUCTIONS MEDICATIONS ADMINISTERED No Known Medications MEDICAL (GENERAL) HISTORY Type Description Date Medical History Fibromyalgia Medical History hypoglycemia Medical History Crohn's Disease Medical History COPD Medical History Oxygen concentrator CPAP full mask Medical History No feeling on the tops of her feet Medical History Degenerative cervical spine Medical History dry eye Medical History muscular skeletal rotations Medical History TM dysfunction dy Medical History inoperable inner ear damage Medical History tinnitis Medical History epidural for lumbar SI pain Medical History Respieratory problems - short of breath
--- OUTSIDE RECORDS SUMMARY | 2018-08-03 05:34 | XMS REPORT ---
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 Active 16541602779558661 Problem Acute pharyngitis 462 Active 056948970 Problem Post-traumatic stress disorder, chronic F43.12 Active 959696173 Problem High risk medication use Z79.899 Active [id number] ALLERGIES No Information ENCOUNTERS Encounter Location Date Diagnosis [facility] [id number] [place] [address] 96007- 2622 Jun, [facility] [address] [address]- 1827 Jun, [facility] [id number] [place] [address] 34355- 8486 May, [facility] [id number] [place] [address] 79368- 8497 28 Apr, 2018 Post-traumatic stress disorder, chronic F43.12 and Paranoid personality disorder F60.0 [facility] [id number] [place] [address] 22037- 1045 Apr, [facility] [id number] [place] [address] 75890- 2900 Mar, Post-traumatic stress disorder, chronic F43.12 ; Delusional disorder F22 ; Personality disorder in adult F60.9 and 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 [facility] [address] [place] [address] 4491 Mar, [facility] [id number] [place] [address] 93872- 6306 Mar, Paranoid personality disorder F60.0 [facility] [id number] [place] [address] 56226- 2239 Feb, Post-traumatic stress disorder, chronic F43.12 and Paranoid personality disorder F60.0 [facility] [id number] [place] [address] 06012- 9589 Feb, 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 ; Post-traumatic stress disorder, chronic F43.12 ; Paranoid personality disorder F60.0 ; High risk medication use Z79.899 and Personality disorder in adult F60.9 [facility] [id number] [place] [address] 47954- 4111 Feb, [facility] [id number] [place] [address] 14193- 8373 17 Feb, 2018 Major depressive disorder, recurrent episode, moderate F33.1 ; Paranoid personality disorder F60.0 and 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 [facility] [address] [place] [address] 81177- 9510 14 Feb, 2018 [facility] [address] [place] [address] 44736- 8269 Feb, [facility] [id number] [place] [address] 54979- 7667 30 Jan, 2018 Major depressive disorder, recurrent episode, moderate F33.1 ; Paranoid personality disorder F60.0 and 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 [facility] [id number] [place] [address] 81123- 9098 Jan, [facility] [id number] [place] [address] 66817- 9479 Jan, [facility] [id number] [place] [address] 21158- 3559 Jan, Major depressive disorder, recurrent episode, moderate F33.1 ; Paranoid personality disorder F60.0 and 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 [facility] [id number] [place] [address] 50478- 6393 Jan, Major depressive disorder, recurrent episode, moderate F33.1 ; Paranoid personality disorder F60.0 and 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 [facility] [id number] [place] [address] 50963- 3206 Dec, 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 ; Post-traumatic stress disorder, chronic F43.12 ; Paranoid personality disorder F60.0 ; High risk medication use Z79.899 and Personality disorder in adult F60.9 [facility] [id number] [place] [address] 45993- 8241 Dec, Major depressive disorder, recurrent episode, moderate F33.1 ; Paranoid personality disorder F60.0 and 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 [facility] [id number] [place] [address] 79429- 3311 Dec, Major depressive disorder, recurrent episode, moderate F33.1 ; Paranoid personality disorder F60.0 and 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 [facility] [id number] [place] [address] 03030- 7265 Dec, [facility] [id number] [place] [address] 31876- 1934 Nov, [facility] [id number] [place] [address] 52685- 6718 Nov, Major depressive disorder, recurrent episode, moderate F33.1 ; Paranoid personality disorder F60.0 and 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 [facility] [id number] [place] [address] 42797- 9411 Nov, [place] [facility] [address] [place] [address] 03470- 6376 Nov, [facility] [id number] [place] [address] 81293- 5289 Nov, Major depressive disorder, recurrent episode, moderate F33.1 ; Paranoid personality disorder F60.0 and 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1 ; Paranoid personality disorder F60.0 and 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 [address] [address] [place] [address] 43840- 6679 October, Major depressive disorder, recurrent episode, moderate F33.1 ; Paranoid personality disorder F60.0 and 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 [facility] [address] [place] [address] 44963- 7415 Sep, Major depressive disorder, recurrent episode, moderate F33.1 ; Paranoid personality disorder F60.0 and 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 [facility] [address] [address]- 5803 Sep, Major depressive disorder, recurrent episode, moderate F33.1 and 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 [facility] [address] [place] [address] 89045- 2265 Aug, Major depressive disorder, recurrent episode, moderate F33.1 and 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 [facility] [address] [place] [address] 81866- 2989 Jul, Major depressive disorder, recurrent episode, moderate F33.1 and 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 [address] [address] [place] [address] 43039- 0747 Jul, Major depressive disorder, recurrent episode, moderate F33.1 and 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 [address] [address] [address]- 9282 Jun, Major depressive disorder, recurrent episode, moderate F33.1 and 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 [address] [facility] [address] [place] [address] 03782- 3078 Jun, Major depressive disorder, recurrent episode, moderate F33.1 and 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 [address] [facility] [address] [place] [address] 81753- 9272 May, Major depressive disorder, recurrent episode, moderate F33.1 and 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 [facility] [id number] [place] [address] 14459- 6552 May, Major depressive disorder, recurrent episode, moderate F33.1 and 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 [address] [facility] [address] [place] [address] 59181- 9900 Apr, [facility] [address] [address]- 9325 Apr, Major depressive disorder, recurrent episode, moderate F33.1 and 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 [address] [address]- 8414 Mar, Major depressive disorder, recurrent episode, moderate F33.1 and 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 [facility] [address] [place] [address] 47214- 0949 Mar, Major depressive disorder, recurrent episode, moderate F33.1 [facility] [address] [place] [address] 22264- 6519 Feb, Major depressive disorder, recurrent episode, moderate F33.1 [facility] [address] [facility] [id number] [address]- 0226 Jan, Major depressive disorder, recurrent episode, moderate F33.1 [facility] [address] [facility] [id number] [place] [address]396 Jan, Major depressive disorder, recurrent episode, moderate F33.1 [facility] [id number] [address]- 2344 Dec, Major depressive disorder, recurrent episode, moderate F33.1 [facility] [address] [facility] [id number] 2396 Dec, Major depressive disorder, recurrent episode, moderate F33.1 [facility] [id number] [address]- 1168 Jul, Major depressive disorder, recurrent episode, moderate F33.1 [facility] [id number] [address]- 2681 Jul, Major depressive disorder, recurrent episode, moderate F33.1 [facility] [id number] [address]- 0034 Jun, Major depressive disorder, recurrent episode, moderate F33.1 [facility] [id number] [address]- 5026 May, Major depressive disorder, recurrent episode, moderate F33.1 [facility] [id number] [address]- 8939 Apr, Major depressive disorder, recurrent episode, moderate F33.1 [facility] [id number] 2746 Mar, [facility] [address] [facility] [id number] 5536 13 Feb, 2016 Major depressive disorder, recurrent episode, moderate F33.1 [facility] [address] [address]- 0073 Jan, Major depressive disorder, recurrent episode, moderate F33.1 [facility] [address], [place] [address]- 5053 Dec, Major depressive disorder, recurrent episode, moderate F33.1 [facility] [address] [address]- 6600 Nov, Major depressive disorder, recurrent episode, moderate F33.1 [facility] [address] 4316 Jul, Major depressive disorder, recurrent episode, moderate F33.1 [facility] [address] [address]- 5745 Jan, Major depressive disorder, recurrent episode, moderate 296.32 [facility] [address] [address]- 3072 Jan, Major depressive disorder, recurrent episode, moderate 296.32 [facility] [address], [place] [address]- 0489 Dec, Major depressive disorder, recurrent episode, moderate 296.32 [facility] [address]- 4707 Dec, Major depressive disorder, recurrent episode, moderate 296.32 [facility] [address]- 9549 Nov, Major depressive disorder, recurrent episode, moderate 296.32 [facility] [address]- 9792 October, Major depressive disorder, recurrent episode, moderate 296.32 [facility] [address], [place] [address]- 4630 Sep, [facility] [id number] 3909 Sep, [facility] [address] [address]- 8360 30 Aug, 2014 [facility] [place] [facility] [address] [id number] [place] [address]- 4971 Aug, [facility] [place] [facility] [address] [id number] [place] [address]- 4117 Aug, 2014 [facility] [place] [facility] [address] [facility] [id number] [place] [address]- 9764 Aug, [facility] [place] [facility] [address] [id number] [place] [address]- 3417 Aug, [facility] [place] [facility] [address] [id number] [place] [address]- 3969 Jul, [facility] [place] [facility] [address] [facility] [id number] [place] [address]- 0279 Jul, 2014 [facility] [place] [facility] [address] [facility] [id number] [place] [address]- 7746 Jul, [facility] [place] [facility] [address] [facility] [id number] [place] [address]- 7561 Jul, [facility] [place] [facility] [address] [facility] [id number] [place] [address]- 3124 Jun, [facility] [place] [facility] [address] [facility] [id number] [place] [address]- 4708 Jun, [facility] [place] [facility] [address] [facility] [id number] [place] [address]- 4400 May, [facility] [place] [facility] [address] [facility] [id number] [place] [address]- 8276 May, [facility] [place] [facility] [address] [id number] [place] [address]- 4915 Apr, [facility] [place] [facility] [address] [facility] [id number] [place] [address]- 9197 Apr, [facility] [place] [facility] [address] [facility] [id number] [place] [address]- 7021 Mar, [facility] [place] [facility] [address] [id number] [place] [address]- 5621 Mar, [facility] [place] [facility] [address] [id number] [place] [address]- 2090 Mar, [facility] [place] [facility] [address] [id number] [place] [address]- 8461 Mar, [facility] [place] [facility] [address] [id number] [place] [address]- 9676 Mar, [facility] [place] [facility] [address] [id number] [place] [address]- 8852 Mar, [facility] [place] [facility] [address] [id number] [place] [address]- 3491 Mar, [facility] [place] [facility] [address] [id number] [place] [address]- 8160 Mar, [facility] [place] [facility] [address] [id number] [place] [address]- 6687 Feb, [facility] [place] [facility] [address] [id number] [place] [address]- 1993 Feb, [facility] [place] [facility] [address] [id number] [place] [address]- 7922 Feb, [facility] [place] [facility] [address] [id number] [place] [address]- 1346 Feb, [facility] [place] [facility] [address] [id number], [place] [address]- 2004 Jan, [facility] [place] [facility] [address] [id number] [place] [address]507 Jan, [facility] [place] [facility] [address] [id number] [place] [address]- 2440 Dec, [facility] [place] [facility] [address] [id number] [place] [address]- 7759 Dec, [facility] [place] [facility] [address] [id number], [place] [address]- 9583 Nov, [facility] [place] [facility] [address] [id number] [place] [address]- 5276 Nov, [facility] [place] [facility] [address] [id number] [place] [address]- 6967 October, [facility] [place] [facility] [address] [facility] [id number] [place] [address]- 3265 October, [facility] [place] [facility] [address] [id number] [place] [address]- 3565 Sep, [facility] [place] [facility] [address] [id number] [place] [address]- 7291 Sep, [facility] [place] [facility] [address] [id number] [place] [address]- 9179 Aug, [facility] [place] [facility] [address] [facility] [id number] [place] [address]- 8697 Aug, [facility] [place] [facility] [address] [id number] [place] [address]- 4935 Jul, [facility] [place] [facility] [address] [facility] [id number] [place] [address]- 4658 Jul, [facility] [place] [facility] [address] [facility] [id number] [place] [address]- 5483 Jun, [facility] [place] [facility] [address] [id number], [place] [address]- 2551 Jun, [facility] [place] [facility] [address] [id number], [place] [address]- 3006 Mar, [facility] [place] [facility] [address] [id number] [place] [address]- 5057 Mar, [facility] [place] [facility] [address] [facility] [id number] [place] [address]- 1979 Mar, [facility] [place] [facility] [address] [facility] [id number], [place] [address]- 4764 Mar, [facility] [place] [facility] [address] [facility] [id number] [place] [address]- 4498 Mar, [facility] [address] [facility] [id number] [place] [address]- 7505 May, IMMUNIZATIONS No Known Immunizations SOCIAL HISTORY Never Assessed REASON FOR VISIT Psychiatric f/u- JjournKrystinN PLAN OF CARE VITAL SIGNS Height 69.5 in 2018-05-04 Weight 209.9 lbs 2018-05-04 Heart Rate 120 bpm 2018-05-04 Respiratory Rate 20 2018-05-04 BMI 30.55 kg/m2 2018-05-04 Blood pressure systolic 142 mmHg 2018-05-04 Blood pressure diastolic 86 mmHg 2018-05-04 MEDICATIONS Medication Instructions Dosage Frequency Start Date End Date Duration Status Diazepam 10 MG Orally 2 times a day 1 tablet 12h Mar, Active Seroquel 200 mg Orally 2 times a day 1 tablet 12h 30 days Active Niacin Flush-Free Ex St 750 MG Orally Once a day 1 capsule 24h Active Effexor XR 150 mg Orally Once a day 1 capsule 24h 30 days Active D3 Adult 1000 UNIT Orally Once a day 1 tablet 24h Active Protonix 40 MG Orally Once a day 1 tablet 24h Active trazodone 100 mg 2 tablets Mar, Active Systane 0.4-0.3 % Ophthalmic 24 time(s) a day 1 drop into affected eye as needed Active Metoprolol Tartrate 25 mg Orally Twice a day 1/2 tablet 12h Mar, Active ProAir HFA 90 mcg/actuation inhale 2 puffs by Inhalation route every 4 hours as needed PRN shortness of breath/cough Mar, Active cyclobenzaprine 10 mg take 1 tablet (10 mg) by oral route 3 times per day Mar, Active Hydrocodone-Acetaminophen 10-325 MG Orally Once a day x 2 weeks then stop 1 tablet Active Tramadol HCl 50 mg Orally 3 times a day 1 to 2 tablet as needed 8h Active Claritin-D 12 Hour 5-120 MG Orally 2 times a day 1 tablet 12h Active PredniSONE 5 MG Orally Once a day 1 tablet 24h Active Lipitor 20 mg 1 tablet by Oral route 1 time per day Mar, Active Budesonide 3 MG Active Melatonin 5 MG Orally Once a day 1 tablet at bedtime as needed with food 24h Active B-12 Compliance Injection 1000 MCG/ML Injection once monthly 1 ml Active Generlac 10 GM/15ML Orally PRN 15 ml Active Calcium Citrate + D 250-200 MG-UNIT Orally Twice a day 1 tablet 12h Active Grapeseed Extract 500-50 MG Orally 2 times a day 12h Active Oxygen Active Advair Diskus 250-50 MCG/DOSE Inhalation Twice a day 1 puff 12h Active Savella 100 MG Orally Once a day 1 tablet 24h Mar, Active Entyvio 300 MG Intravenous once every 2 months Active Valerian - Orally Once a day 2 capsules 24h Active RESULTS No Results PROCEDURES Procedure Date Ordered Result Body Site [facility] VISIT ESTABLISHED PATIENT May 04, 2018 INSTRUCTIONS MEDICATIONS ADMINISTERED No Known Medications MEDICAL [...]
--- OUTSIDE RECORDS SUMMARY | 2018-08-03 05:35 | XMS REPORT ---
Author Author HAMMAD RUIZ Organization [facility] [address] Address [address] [place] [address] Care Team Providers Care Headend Technician Name Role Phone HAMMAD RUIZ Unavailable PROBLEMS Type Condition ICD9-CM Code XQV23-MU Code Onset Dates Condition Status SNOMED Code Problem Major depressive disorder, recurrent episode, moderate F33.1 Active 418762448 Problem Post-traumatic stress disorder, chronic F43.12 Active 161591715 Problem High risk medication use Z79.899 Active 171236168472972 Problem 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 Active 30799863651779783 Problem Acute pharyngitis 462 Active 156758261 Problem Personality disorder in adult F60.9 Active 58475865 Problem Paranoid personality disorder F60.0 Active [id number] ALLERGIES No Information ENCOUNTERS Encounter Location Date Diagnosis [facility] [id number] [place] [address] 79458- 9998 Apr, [facility] [id number] [place] [address] 68068- 7042 Apr, [facility] [address] [address] 6388 Mar, [facility] [id number] [place] [address] 27611- 8428 Mar, [facility] [id number] [place] [address] 02127- 9638 Mar, Paranoid personality disorder F60.0 [facility] [id number] [place] [address] 93497- 0815 Feb, Post-traumatic stress disorder, chronic F43.12 and Paranoid personality disorder F60.0 [facility] [id number] [place] [address] 15174- 4788 Feb, 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 ; Post-traumatic stress disorder, chronic F43.12 ; Paranoid personality disorder F60.0 ; High risk medication use Z79.899 and Personality disorder in adult F60.9 [facility] [address] [address] 6845 Feb, [facility] [id number] [place] [address] 00952- 1614 Feb, Major depressive disorder, recurrent episode, moderate F33.1 ; Paranoid personality disorder F60.0 and 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 [facility] [id number] [place] [address] 90156- 1860 Feb, [facility] [id number] [place] [address] 31038- 0286 Feb, [facility] [id number] [place] [address] 43060- 5621 Jan, Major depressive disorder, recurrent episode, moderate F33.1 ; Paranoid personality disorder F60.0 and 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 [facility] [id number] [place] [address] 31035- 1627 Jan, [facility] [id number] [place] [address] 38165- 1365 Jan, [facility] [id number] [place] [address] 86256- 3725 Jan, Major depressive disorder, recurrent episode, moderate F33.1 ; Paranoid personality disorder F60.0 and 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 [facility] [id number] [place] [address] 32465- 5640 Jan, Major depressive disorder, recurrent episode, moderate F33.1 ; Paranoid personality disorder F60.0 and 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 [facility] [address] [address] 3795 Dec, 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 ; Post-traumatic stress disorder, chronic F43.12 ; Paranoid personality disorder F60.0 ; High risk medication use Z79.899 and Personality disorder in adult F60.9 [facility] [id number] [place] [address] 08305- 8601 Dec, Major depressive disorder, recurrent episode, moderate F33.1 ; Paranoid personality disorder F60.0 and 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 [facility] [id number] [place] [address] 77882- 8224 Dec, Major depressive disorder, recurrent episode, moderate F33.1 ; Paranoid personality disorder F60.0 and 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 [facility] [id number] [place] [address] 50170- 5550 Dec, [facility] [id number] [place] [address] 70253- 6666 Nov, [facility] [address] 82891- 2105 Nov, Major depressive disorder, recurrent episode, moderate F33.1 ; Paranoid personality disorder F60.0 and 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 [facility] [id number] [place] [address] 33207- 8120 Nov, [facility] [id number] [place] [address] 49381- 8492 Nov, [facility] [id number] [place] [address] 96928- 0047 Nov, Major depressive disorder, recurrent episode, moderate F33.1 ; Paranoid personality disorder F60.0 and 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 [facility] [id number] [place] [address] 78854- 6177 Nov, [facility] [id number] [place] [address] 43356- 3590 Nov, [facility] [id number] [place] [address] 66011- 3938 October, 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 ; Post-traumatic stress disorder, chronic F43.12 ; Paranoid personality disorder F60.0 ; High risk medication use Z79.899 and Personality disorder in adult F60.9 [facility] [address] [address]- 1740 October, Major depressive disorder, recurrent episode, moderate F33.1 ; Paranoid personality disorder F60.0 and 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 [facility] [address] [place] [address] 79580- 6165 October, Major depressive disorder, recurrent episode, moderate F33.1 ; Paranoid personality disorder F60.0 and 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 [facility] [address] [place] [address] 39115- 7731 Sep, Major depressive disorder, recurrent episode, moderate F33.1 ; Paranoid personality disorder F60.0 and 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 [facility] [address] [place] [address] 50719- 0695 Sep, Major depressive disorder, recurrent episode, moderate F33.1 and 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 [facility] [address] [place] [address] 91905- 5572 Aug, Major depressive disorder, recurrent episode, moderate F33.1 and 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 [facility] [address] [place] [address] 11113- 7964 Jul, Major depressive disorder, recurrent episode, moderate F33.1 and 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 [facility] [id number] [place] [address] 96024- 2626 14 Jul, 2017 Major depressive disorder, recurrent episode, moderate F33.1 and 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 [facility] [address] [address]- 6010 Jun, Major depressive disorder, recurrent episode, moderate F33.1 and 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 [facility] [address] [address]- 2810 Jun, Major depressive disorder, recurrent episode, moderate F33.1 and 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 [facility] [address] [address]- 7106 May, Major depressive disorder, recurrent episode, moderate F33.1 and 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 [facility] [address] [place] [address] 77663- 7984 May, Major depressive disorder, recurrent episode, moderate F33.1 and 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 [facility] [id number] [place] [address] 06524- 3449 Apr, [facility] [id number] [place] [address] 76001- 1908 Apr, Major depressive disorder, recurrent episode, moderate F33.1 and 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 [facility] [address] [address]- 5180 Mar, Major depressive disorder, recurrent episode, moderate F33.1 and 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 [facility] [address] [address]- 0847 Mar, Major depressive disorder, recurrent episode, moderate F33.1 [facility] [address] [address]- 6113 Feb, Major depressive disorder, recurrent episode, moderate F33.1 [facility] [address] [address]- 4779 Jan, Major depressive disorder, recurrent episode, moderate F33.1 [facility] [address] [address]- 7191 Jan, Major depressive disorder, recurrent episode, moderate F33.1 [facility] [address] [address]- 8948 Dec, Major depressive disorder, recurrent episode, moderate F33.1 [facility] [address] [facility] [id number] 7070 Dec, Major depressive disorder, recurrent episode, moderate F33.1 [facility] [address] [facility] [id number] [address]- 3576 Jul, Major depressive disorder, recurrent episode, moderate F33.1 [facility] [id number] [address]- 2056 Jul, Major depressive disorder, recurrent episode, moderate F33.1 [facility] [id number] [place] [address] 137114- 8646 Jun, Major depressive disorder, recurrent episode, moderate F33.1 [facility] [id number] 4772 May, Major depressive disorder, recurrent episode, moderate F33.1 [facility] [id number] [address]- 8287 Apr, Major depressive disorder, recurrent episode, moderate F33.1 [facility] [address] [address]- 7604 Mar, [facility] [id number] [address]- 4940 Feb, Major depressive disorder, recurrent episode, moderate F33.1 [facility] [address] [address]- 0596 Jan, Major depressive disorder, recurrent episode, moderate F33.1 [facility] [id number] 9590 Dec, Major depressive disorder, recurrent episode, moderate F33.1 [facility] [id number] [address]- 0676 Nov, Major depressive disorder, recurrent episode, moderate F33.1 [facility] [id number] [address]- 0746 Jul, Major depressive disorder, recurrent episode, moderate F33.1 [facility] [address] [address]- 9299 Jan, Major depressive disorder, recurrent episode, moderate 296.32 [facility] [address] [address]- 7827 Jan, Major depressive disorder, recurrent episode, moderate 296.32 [facility] [address] [address]- 2944 Dec, Major depressive disorder, recurrent episode, moderate 296.32 [facility] [address] [address]- 5710 Dec, Major depressive disorder, recurrent episode, moderate 296.32 [facility] [address] 3178 Nov, Major depressive disorder, recurrent episode, moderate 296.32 [facility] [address] [address]- 4021 October, Major depressive disorder, recurrent episode, moderate 296.32 [facility] [address], [place] [address]- 2147 Sep, [facility] [address] 5565 Sep, [facility] [address] [address]- 9886 30 Aug, 2014 [facility] [address], [place] [address]- 1399 Aug, [facility] [address], [place] [address]- 7316 Aug, [facility] [address], [place] [address]- 8856 Aug, [facility] [address], [place] [address]- 2540 Aug, [facility] [place] [facility] [address] [id number] [place] [address]- 8239 Jul, 2014 [facility] [place] [facility] [address] [id number] [place] [address]- 2652 Jul, 2014 [facility] [place] [facility] [address] [id number] [place] [address]- 7266 Jul, [facility] [place] [facility] [address] [id number] [place] [address]- 4759 Jul, [facility] [place] [facility] [address] [id number] [place] [address]- 3840 Jun, [facility] [place] [facility] [address] [id number] [place] [address]- 8541 Jun, [facility] [place] [facility] [address] [facility] [id number] [place] [address]- 7692 May, [facility] [place] [facility] [address] [facility] [id number] [place] [address]- 8657 May, [facility] [place] [facility] [address] [facility] [id number] [place] [address]- 8291 Apr, [facility] [place] [facility] [address] [facility] [id number] [place] [address]- 8069 Apr, [facility] [place] [facility] [address] [facility] [id number] [place] [address]- 9255 Mar, [facility] [place] [facility] [address] [id number] [place] [address]- 1881 Mar, [facility] [place] [facility] [address] [id number] [place] [address]- 1722 Mar, [facility] [place] [facility] [address] [id number] [place] 9813 Mar, [facility] [place] [facility] [address] [id number] 4066 Mar, [facility] [place] [facility] [address] [id number] [place] [address]- 3122 Mar, [facility] [place] [facility] [address] [id number] [place] [address]- 2699 Mar, [facility] [place] [facility] [address] [id number] [place] [address]- 4742 Mar, [facility] [place] [facility] [address] [id number] [place] [address]- 2623 Feb, [facility] [place] [facility] [address] [id number] [place] [address]- 4825 Feb, [facility] [place] [facility] [address] [id number] [place] [address]- 1243 Feb, [facility] [place] [facility] [address] [id number] [place] [address]- 7722 Feb, [facility] [place] [facility] [address] [id number] [place] [address]- 5270 Jan, [facility] [place] [facility] [address] [id number] [place] [address]- 1371 Jan, [facility] [place] [facility] [address] [id number] [place] [address]- 4753 Dec, [facility] [place] [facility] [address] [id number] [place] [address]- 7642 Dec, [facility] [place] [facility] [address] [id number] [place] [address]- 5898 Nov, [facility] [place] [facility] [address] [id number] [place] [address]- 4491 Nov, [facility] [place] [facility] [address] [id number] [place] [address]- 4515 October, [facility] [place] [facility] [address] [id number] [place] [address]- 7221 October, [facility] [place] [facility] [address] [id number], [place] [address]- 6376 Sep, [facility] [address] [facility] [id number], [place] [address]- 3738 Sep, [facility] [address] [facility] [id number], [place] [address]- 0156 Aug, [facility] [address], [place] [address]- 0029 Aug, [facility] [address] [facility] [id number], [place] [address]- 2573 Jul, [facility] [address] [facility] [id number], [place] [address]- 0314 Jul, [facility] [id number] [place] [address] 87028- 3106 Jun, [facility] [address], [place] [address]- 2638 Jun, [facility] [address], [place] [address]- 6828 Mar, [facility] [address] 3848 Mar, [facility] [address] 0619 Mar, [facility] [id number], [place] [address]- 8645 Mar, [facility] [address], [place] [address]- 7687 Mar, [facility] [address], [place] [address]- 7085 May, IMMUNIZATIONS No Known Immunizations SOCIAL HISTORY Never Assessed REASON FOR VISIT Refill request PLAN OF CARE VITAL SIGNS MEDICATIONS Medication Instructions Dosage Frequency Start Date End Date Duration Status Seroquel 300 MG Orally 2 times a day 1 tablet 12h 11 Mar, 2014 30 days Active RESULTS No Results PROCEDURES No Known procedures [...]
--- OUTSIDE RECORDS SUMMARY | 2018-08-03 05:35 | XMS REPORT ---
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 Name Role Phone HAMMAD RUIZ Unavailable PROBLEMS Type Condition ICD9-CM Code WXP13-RN Code Onset Dates Condition Status SNOMED Code Problem Major depressive disorder, recurrent episode, moderate F33.1 Active 408678024 Problem Post-traumatic stress disorder, chronic F43.12 Active 325701566 Problem High risk medication use Z79.899 Active 676427081525292 Problem 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 Active 85472437887545401 Problem Acute pharyngitis 462 Active 068812988 Problem Personality disorder in adult F60.9 Active 74642745 Problem Paranoid personality disorder F60.0 Active [id number] ALLERGIES No Information ENCOUNTERS Encounter Location Date Diagnosis [facility] [id number] [place] [address] 67684- 8978 Apr, [facility] [id number] [place] [address] 89782- 3442 Apr, [facility] [address] [address] 6293 Mar, [facility] [id number] [place] [address] 83772- 4282 Mar, [facility] [id number] [place] [address] 59359- 0443 Mar, Paranoid personality disorder F60.0 [facility] [id number] [place] [address] 05157- 5467 Feb, Post-traumatic stress disorder, chronic F43.12 and Paranoid personality disorder F60.0 [facility] [id number] [place] [address] 42739- 7935 Feb, 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 ; Post-traumatic stress disorder, chronic F43.12 ; Paranoid personality disorder F60.0 ; High risk medication use Z79.899 and Personality disorder in adult F60.9 [facility] [address] [address] 3[address] Feb, [facility] [id number] [place] [address] 70006- 7681 Feb, Major depressive disorder, recurrent episode, moderate F33.1 ; Paranoid personality disorder F60.0 and 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 [facility] [id number] [place] [address] 95886- 2618 Feb, [facility] [id number] [place] [address] 73787- 7056 Feb, [facility] [id number] [place] [address] 52610- 7345 Jan, Major depressive disorder, recurrent episode, moderate F33.1 ; Paranoid personality disorder F60.0 and 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 [facility] [id number] [place] [address] 29178- 1812 Jan, [facility] [id number] [place] [address] 87841- 7978 Jan, [facility] [id number] [place] [address] 29423- 9616 Jan, Major depressive disorder, recurrent episode, moderate F33.1 ; Paranoid personality disorder F60.0 and 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 [facility] [address] [place] [address] 88919- 2350 Jan, Major depressive disorder, recurrent episode, moderate F33.1 ; Paranoid personality disorder F60.0 and 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 [facility] [address] [address] 9815 Dec, 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 ; Post-traumatic stress disorder, chronic F43.12 ; Paranoid personality disorder F60.0 ; High risk medication use Z79.899 and Personality disorder in adult F60.9 [facility] [id number] [place] [address] 34119- 9688 Dec, Major depressive disorder, recurrent episode, moderate F33.1 ; Paranoid personality disorder F60.0 and 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 [facility] [id number] [place] [address] 60426- 9953 Dec, Major depressive disorder, recurrent episode, moderate F33.1 ; Paranoid personality disorder F60.0 and 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 [facility] [id number] [place] [address] 81439- 5698 Dec, [facility] [id number] [place] [address] 30503- 2070 Nov, [facility] [address] 44673- 8815 Nov, Major depressive disorder, recurrent episode, moderate F33.1 ; Paranoid personality disorder F60.0 and 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 [facility] [id number] [place] [address] 76283- 1798 Nov, [facility] [id number] [place] [address] 55958- 2337 Nov, [facility] [id number] [place] [address] 06894- 2222 Nov, Major depressive disorder, recurrent episode, moderate F33.1 ; Paranoid personality disorder F60.0 and 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 [facility] [id number] [place] [address] 32790- 2184 Nov, [facility] [id number] [place] [address] 47666- 8752 Nov, [facility] [id number] [place] [address] 35888- 6811 October, 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 ; Post-traumatic stress disorder, chronic F43.12 ; Paranoid personality disorder F60.0 ; High risk medication use Z79.899 and Personality disorder in adult F60.9 [facility] [address] [address]- 6217 October, Major depressive disorder, recurrent episode, moderate F33.1 ; Paranoid personality disorder F60.0 and 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 [facility] [id number] [place] [address] 99600- 0488 October, Major depressive disorder, recurrent episode, moderate F33.1 ; Paranoid personality disorder F60.0 and 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 [facility] [address] [place] [address] 94797- 7733 Sep, Major depressive disorder, recurrent episode, moderate F33.1 ; Paranoid personality disorder F60.0 and 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 [facility] [address] [place] [address] 23255- 3621 Sep, Major depressive disorder, recurrent episode, moderate F33.1 and 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 [facility] [address] [place] [address] 28008- 3507 Aug, Major depressive disorder, recurrent episode, moderate F33.1 and 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 [facility] [address] [place] [address] 75495- 3199 Jul, Major depressive disorder, recurrent episode, moderate F33.1 and 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 [facility] [address] [place] [address] 54489- 3296 14 Jul, 2017 Major depressive disorder, recurrent episode, moderate F33.1 and 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 [facility] [address], [place] [address]- 3762 Jun, Major depressive disorder, recurrent episode, moderate F33.1 and 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 [facility] [address], [place] [address]- 9053 Jun, Major depressive disorder, recurrent episode, moderate F33.1 and 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 [facility] [address] [address]- 6314 May, Major depressive disorder, recurrent episode, moderate F33.1 and 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 [facility] [address] [place] [address] 27212- 7036 May, Major depressive disorder, recurrent episode, moderate F33.1 and 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 [facility] [address] [place] [address] 52650- 8790 Apr, [facility] [id number] [place] [address] 46140- 5874 Apr, Major depressive disorder, recurrent episode, moderate F33.1 and 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 [facility] [address], [place] [address]- 4599 Mar, Major depressive disorder, recurrent episode, moderate F33.1 and 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 [facility] [address] [address]- 4934 Mar, Major depressive disorder, recurrent episode, moderate F33.1 [facility] [address], [place] [address]- 0658 Feb, Major depressive disorder, recurrent episode, moderate F33.1 [facility] [address] [address]- 5671 Jan, Major depressive disorder, recurrent episode, moderate F33.1 [facility] [address] [address]- 1736 Jan, Major depressive disorder, recurrent episode, moderate F33.1 [facility] [address] [address]- 2634 Dec, Major depressive disorder, recurrent episode, moderate F33.1 [facility] [address] [facility] [id number] [address] Dec, Major depressive disorder, recurrent episode, moderate F33.1 [facility] [address] [facility] [id number] [address]- 8906 Jul, Major depressive disorder, recurrent episode, moderate F33.1 [facility] [id number] [address]- 7046 Jul, Major depressive disorder, recurrent episode, moderate F33.1 [facility] [id number] [place] [address] 213281- 1226 Jun, Major depressive disorder, recurrent episode, moderate F33.1 [facility] [id number] 5130 May, Major depressive disorder, recurrent episode, moderate F33.1 [facility] [id number] [address]- 8147 Apr, Major depressive disorder, recurrent episode, moderate F33.1 [facility] [address] [place] [address]- 5596 Mar, [facility] [id number] [address]- 4243 Feb, Major depressive disorder, recurrent episode, moderate F33.1 [facility] [address] 1242 Jan, Major depressive disorder, recurrent episode, moderate F33.1 [facility] [id number] 4870 Dec, Major depressive disorder, recurrent episode, moderate F33.1 [facility] [id number] [address]- 0236 Nov, Major depressive disorder, recurrent episode, moderate F33.1 [facility] [id number] [address]- 7606 Jul, Major depressive disorder, recurrent episode, moderate F33.1 [facility] [address], [place] [address]- 4122 Jan, Major depressive disorder, recurrent episode, moderate 296.32 [facility] [address], [place] [address]- 0652 Jan, Major depressive disorder, recurrent episode, moderate 296.32 [facility] [address], [place] [address]- 3517 Dec, Major depressive disorder, recurrent episode, moderate 296.32 [facility] [address], [place] [address]- 8098 Dec, Major depressive disorder, recurrent episode, moderate 296.32 [facility] [address] 1155 Nov, Major depressive disorder, recurrent episode, moderate 296.32 [facility] [address], [place] [address]- 5082 October, Major depressive disorder, recurrent episode, moderate 296.32 [facility] [address], [place] [address]- 5980 Sep, [facility] [address] 0046 Sep, [facility] [address], [place] [address]- 8951 30 Aug, 2014 [facility] [address], [place] [address]- 1173 Aug, [facility] [address], [place] [address]- 5936 Aug, [facility] [address] [address]- 4456 Aug, [facility] [address], [place] [address]- 2902 Aug, [facility] [place] [facility] [address] [id number] [place] [address]- 3037 Jul, 2014 [facility] [place] [facility] [address] [id number] [place] [address]- 9654 Jul, 2014 [facility] [place] [facility] [address] [id number] [place] [address]- 5776 Jul, [facility] [place] [facility] [address] [id number] [place] [address]- 3943 Jul, [facility] [place] [facility] [address] [id number] [place] [address]- 4589 Jun, [facility] [place] [facility] [address] [id number] [place] [address]- 3240 Jun, [facility] [place] [facility] [address] [facility] [id number] [place] [address]- 2291 May, [facility] [place] [facility] [address] [facility] [id number] [place] [address]- 7011 May, [facility] [place] [facility] [address] [facility] [id number] [place] [address]- 6851 Apr, [facility] [place] [facility] [address] [facility] [id number] [place] [address]- 4997 Apr, [facility] [place] [facility] [address] [facility] [id number] [place] [address]- 4513 Mar, [facility] [place] [facility] [address] [id number] [place] [address]- 3732 Mar, [facility] [place] [facility] [address] [id number] [place] [address]- 9981 Mar, [facility] [place] [facility] [address] [id number] [place] 0492 Mar, [facility] [place] [facility] [address] [id number] 8671 Mar, [facility] [place] [facility] [address] [id number] [place] [address]- 9368 Mar, [facility] [place] [facility] [address] [id number] [place] [address]- 6937 Mar, [facility] [place] [facility] [address] [id number] [place] [address]- 5741 Mar, [facility] [place] [facility] [address] [id number] [place] [address]- 5028 Feb, [facility] [place] [facility] [address] [id number] [place] [address]- 5910 Feb, [facility] [place] [facility] [address] [id number] [place] [address]- 2069 Feb, [facility] [place] [facility] [address] [id number] [place] [address]- 7311 Feb, [facility] [place] [facility] [address] [id number] [place] [address]- 4646 Jan, [facility] [place] [facility] [address] [id number] [place] [address]- 6697 Jan, [facility] [place] [facility] [address] [id number] [place] [address]- 0124 Dec, [facility] [place] [facility] [address] [id number] [place] [address]- 4581 Dec, [facility] [place] [facility] [address] [id number] [place] [address]- 9623 Nov, [facility] [place] [facility] [address] [id number] [place] [address]- 6618 Nov, [facility] [place] [facility] [address] [id number] [place] [address]- 8377 October, [facility] [place] [facility] [address] [id number] [place] [address]- 2412 October, [facility] [place] [facility] [address] [id number], [place] [address]- 7506 Sep, [facility] [id number] 7008 Sep, [facility] [address], [place] [address]- 9838 Aug, [facility] [address]- 4646 Aug, [facility] [address] [facility] [id number], [place] [address]- 4268 Jul, [facility] [address] [facility] [id number], [place] [address]- 0086 Jul, [facility] [id number] [place] [address] 85900- 2181 Jun, [facility] [address] 3682 Jun, [facility] [address], [place] [address]- 3229 Mar, [facility] [address] 6921 Mar, [facility] [address] [place] [address]- 0388 Mar, [facility] [id number] [address]- 4627 Mar, [facility] [address], [place] [address]- 9256 Mar, [facility] [id number] 0160 May, IMMUNIZATIONS No Known Immunizations SOCIAL HISTORY Never Assessed REASON FOR VISIT FY only PLAN OF CARE VITAL SIGNS MEDICATIONS Unknown [...]
--- OUTSIDE RECORDS SUMMARY | 2018-08-03 05:35 | XMS REPORT ---
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 Active [id number] Problem Acute pharyngitis 462 Active 454464900 Problem Post-traumatic stress disorder, chronic F43.12 Active 647604105 Problem High risk medication use Z79.899 Active [id number] ALLERGIES No Information ENCOUNTERS Encounter Location Date Diagnosis [facility] [id number] [place] [address] 84383- 3750 Jun, [facility] [id number] [place] [address] 34698- 4573 May, [facility] [id number] [place] [address] 77542- 5937 Apr, [facility] [id number] [place] [address] 47784- 3350 Apr, [facility] [id number] [place] [address] 28009- 2657 Mar, Post-traumatic stress disorder, chronic F43.12 ; Delusional disorder F22 ; Personality disorder in adult F60.9 and 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 [facility] [id number] [place] [address] 08689- 7326 Mar, [facility] [id number] [place] [address] 13287- 7061 Mar, Paranoid personality disorder F60.0 [facility] [address] [address] Feb, Post-traumatic stress disorder, chronic F43.12 and Paranoid personality disorder F60.0 [facility] [address] [address] 2546 Feb, 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 ; Post-traumatic stress disorder, chronic F43.12 ; Paranoid personality disorder F60.0 ; High risk medication use Z79.899 and Personality disorder in adult F60.9 [facility] [address] [address] 6[address] Feb, [facility] [id number] [place] [address] 50312- 9795 17 Feb, 2018 Major depressive disorder, recurrent episode, moderate F33.1 ; Paranoid personality disorder F60.0 and 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 [facility] [id number] [place] [address] 03792- 7002 14 Feb, 2018 [facility] [id number] [place] [address] 73032- 9310 04 Feb, 2018 [facility] [id number] [place] [address] 48444- 5617 30 Jan, 2018 Major depressive disorder, recurrent episode, moderate F33.1 ; Paranoid personality disorder F60.0 and 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 [facility] [address] [address] 8537 Jan, [facility] [id number] [place] [address] 22910- 7149 Jan, [facility] [id number] [place] [address] 97410- 6288 10 Jan, 2018 Major depressive disorder, recurrent episode, moderate F33.1 ; Paranoid personality disorder F60.0 and 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 [facility] [id number] [place] [address] 09889- 3839 Jan, Major depressive disorder, recurrent episode, moderate F33.1 ; Paranoid personality disorder F60.0 and 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 [facility] [address] [id number] [address] Dec, 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 ; Post-traumatic stress disorder, chronic F43.12 ; Paranoid personality disorder F60.0 ; High risk medication use Z79.899 and Personality disorder in adult F60.9 [facility] [id number] [address] 3808 Dec, Major depressive disorder, recurrent episode, moderate F33.1 ; Paranoid personality disorder F60.0 and 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 [facility] [address] [address] 6728 Dec, Major depressive disorder, recurrent episode, moderate F33.1 ; Paranoid personality disorder F60.0 and 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 [facility] [address] [address] 5478 Dec, [facility] [id number] [address] 7799 Nov, [facility] [address] [address]- 2545 Nov, Major depressive disorder, recurrent episode, moderate F33.1 ; Paranoid personality disorder F60.0 and 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 [facility] [id number] [address] 4432 Nov, [facility] [id number] [address] 4722 Nov, [facility] [address] [address] 2283 Nov, Major depressive disorder, recurrent episode, moderate F33.1 ; Paranoid personality disorder F60.0 and 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 [facility] [address] [address]- 8406 Nov, [facility] [id number] [place] [address] 90833- 2081 Nov, [facility] [address] [address] 3144 October, 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 ; Post-traumatic stress disorder, chronic F43.12 ; Paranoid personality disorder F60.0 ; High risk medication use Z79.899 and Personality disorder in adult F60.9 [facility] [address] [address] 3892 October, Major depressive disorder, recurrent episode, moderate F33.1 ; Paranoid personality disorder F60.0 and 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 [facility] [address] [address]- 6144 October, Major depressive disorder, recurrent episode, moderate F33.1 ; Paranoid personality disorder F60.0 and 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 [facility] [address] [address]- 3940 Sep, Major depressive disorder, recurrent episode, moderate F33.1 ; Paranoid personality disorder F60.0 and 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 [facility] [address] [address]- 2833 Sep, Major depressive disorder, recurrent episode, moderate F33.1 and 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 [facility] [address] [address]- 7157 Aug, Major depressive disorder, recurrent episode, moderate F33.1 and 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 [facility] [address] [address]- 8124 Jul, Major depressive disorder, recurrent episode, moderate F33.1 and 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 [facility] [address] [place] [address] 09406- 7673 Jul, Major depressive disorder, recurrent episode, moderate F33.1 and 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 [facility] [address] [place] [address] 21620- 6021 Jun, Major depressive disorder, recurrent episode, moderate F33.1 and 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 [facility] [id number] [place] [address] 77575- 7293 Jun, Major depressive disorder, recurrent episode, moderate F33.1 and 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 [facility] [id number] [place] [address] 74356- 4902 May, Major depressive disorder, recurrent episode, moderate F33.1 and 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 [facility] [id number] [place] [address] 05021- 1137 May, Major depressive disorder, recurrent episode, moderate F33.1 and 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 [facility] [id number] [place] [address] 62456- 9937 Apr, [facility] [id number] [place] [address] 74868- 4551 Apr, Major depressive disorder, recurrent episode, moderate F33.1 and 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 [facility] [address] [address]- 1416 Mar, Major depressive disorder, recurrent episode, moderate F33.1 and 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 [facility] [address] [place] [address] 67003- 1472 Mar, Major depressive disorder, recurrent episode, moderate F33.1 [facility] [id number] [place] [address] 98117- 6316 Feb, Major depressive disorder, recurrent episode, moderate F33.1 [facility] [address] [address]- 7813 Jan, Major depressive disorder, recurrent episode, moderate F33.1 [facility] [address] [facility] [id number] [address]- 5417 Jan, Major depressive disorder, recurrent episode, moderate F33.1 [facility] [address] [facility] [id number] [address]- 5276 Dec, Major depressive disorder, recurrent episode, moderate F33.1 [facility] [id number] [address]- 5826 Dec, Major depressive disorder, recurrent episode, moderate F33.1 [facility] [id number] [address]- 9246 Jul, Major depressive disorder, recurrent episode, moderate F33.1 [facility] [id number] [address]- 7156 Jul, Major depressive disorder, recurrent episode, moderate F33.1 [facility] [address] [address]- 9939 Jun, Major depressive disorder, recurrent episode, moderate F33.1 [facility] [address] [address]- 6137 May, Major depressive disorder, recurrent episode, moderate F33.1 [facility] [address], [place] [address]- 0846 Apr, Major depressive disorder, recurrent episode, moderate F33.1 [facility] [address] [address]- 3796 Mar, [facility] [id number] [address]- 2446 Feb, Major depressive disorder, recurrent episode, moderate F33.1 [facility] [id number] 1296 Jan, Major depressive disorder, recurrent episode, moderate F33.1 [facility] [address], [place] [address]- 1686 Dec, Major depressive disorder, recurrent episode, moderate F33.1 [facility] [address] [address]- 2606 Nov, Major depressive disorder, recurrent episode, moderate F33.1 [facility] [address] [address]- 2546 Jul, Major depressive disorder, recurrent episode, moderate F33.1 [facility] [address], [place] [address]- 4816 Jan, Major depressive disorder, recurrent episode, moderate 296.32 [facility] [address] [address]- 1798 Jan, Major depressive disorder, recurrent episode, moderate 296.32 [facility] [address] [address]- 0186 Dec, Major depressive disorder, recurrent episode, moderate 296.32 [facility] [address] 8057 Dec, Major depressive disorder, recurrent episode, moderate 296.32 [facility] [address] 1277 Nov, Major depressive disorder, recurrent episode, moderate 296.32 [facility] [address], [place] [address]- 8626 October, Major depressive disorder, recurrent episode, moderate 296.32 [facility] [address], [place] [address]- 0636 Sep, [facility] [address] [address]- 0276 Sep, [facility] [address] [address]- 8936 30 Aug, 2014 [facility] [address], [place] [address]- 3156 16 Aug, 2014 [facility] [place] [facility] [address] [id number] [place] [address]- 9663 Aug, [facility] [place] [facility] [address] [id number] [place] [address]- 7803 Aug, [facility] [place] [facility] [address] [id number] [place] [address]- 2073 Aug, [facility] [place] [facility] [address] [id number] [place] [address]- 3756 Jul, 2014 [facility] [place] [facility] [address] [id number] [place] [address]- 9335 Jul, 2014 [facility] [place] [facility] [address] [id number] [place] [address]- 2871 Jul, [facility] [place] [facility] [address] [id number] [place] [address]- 0221 Jul, [facility] [place] [facility] [address] [id number] [place] [address]- 0256 Jun, [facility] [place] [facility] [address] [id number] [place] [address]- 2475 Jun, [facility] [place] [facility] [address] [facility] [id number] [place] [address]- 9238 May, [facility] [place] [facility] [address] [id number], [place] [address]- 5710 May, [facility] [place] [facility] [address] [id number], [place] [address]- 8416 Apr, [facility] [place] [facility] [address] [id number] [place] [address]- 5199 Apr, [facility] [place] [facility] [address] [id number] [place] [address]- 5266 Mar, [facility] [place] [facility] [address] [id number] 1796 Mar, [facility] [place] [facility] [address] [id number], [place] [address]- 6561 Mar, [facility] [place] [facility] [address] [id number] [place] [address]- 2797 Mar, [facility] [place] [facility] [address] [id number] [place] [address]- 5771 Mar, [facility] [place] [facility] [address] [id number] [place] [address]- 2034 Mar, [facility] [place] [facility] [address] [id number] [place] [address]- 9125 Mar, [facility] [place] [facility] [address] [id number] [place] [address]- 1855 Mar, [facility] [place] [facility] [address] [id number] [place] [address]- 8490 Feb, [facility] [place] [facility] [address] [id number] [place] [address]- 2496 Feb, [facility] [place] [facility] [address] [id number] [place] [address]- 9805 Feb, [facility] [place] [facility] [address] [id number] [place] [address]- 6029 Feb, [facility] [place] [facility] [address] [facility] [id number] [place] [address]- 0358 Jan, [facility] [place] [facility] [address] [id number] [place] [address]- 7405 Jan, [facility] [place] [facility] [address] [id number], [place] [address]- 8385 Dec, [facility] [place] [facility] [address] [id number] [place] [address]- 2857 Dec, [facility] [place] [facility] [address] [facility] [id number], [place] [address]- 2796 Nov, [facility] [place] [facility] [address] [facility] [id number] [place] [address]- 8022 Nov, [facility] [place] [facility] [address] [id number] [place] [address]- 3182 October, [facility] [place] [facility] [address] [id number] [place] [address]- 0059 October, [facility] [place] [facility] [address] [id number] [place] [address]- 0633 Sep, [facility] [place] [facility] [address] [id number] [place] [address]- 3240 Sep, [facility] [place] [facility] [address] [id number] [place] [address]- 6445 Aug, [facility] [place] [facility] [address] [id number] [place] [address]- 2576 Aug, [facility] [place] [facility] [address] [id number] [place] [address]- 0407 Jul, [facility] [place] [facility] [address] [id number] [place] [address]- 5212 Jul, [facility] [place] [facility] [address] [id number] [place] [address]- 1458 Jun, [facility] [place] [facility] [address] [id number] [place] [address]- 2976 Jun, [facility] [place] [facility] [address] [id number] [place] [address]- 5808 Mar, [facility] [place] [facility] [address] [id number] [place] [address]- 7607 Mar, [facility] [place] [facility] [address] [id number] [place] [address]- 3263 Mar, [facility] [place] [facility] [address] [id number] [place] [address]- 4388 Mar, [facility] [place] [facility] [address] [id number] [place] 5984 Mar, [facility] [place] [facility] [address] [id number] [place] [address]- 9900 May, IMMUNIZATIONS No Known Immunizations SOCIAL HISTORY Never Assessed REASON FOR VISIT f/u PLAN OF CARE Activity Details Follow Up 2 Weeks Reason: VITAL SIGNS MEDICATIONS Unknown Medications RESULTS No Results PROCEDURES Procedure Date Ordered Result Body Site [facility] VISIT MENTAL HEALTH ESTAB PT Apr 06, 2018 Psychotherapy, patient &/family, 45 minutes, established patient Apr 06, 2018 INSTRUCTIONS MEDICATIONS ADMINISTERED No Known Medications [...]
[2018-08-03] MEDS ORDERED: PANTOPRAZOLE 40 MG (PROTONIX) VIAL IV STA (05:36)
--- OUTSIDE RECORDS SUMMARY | 2018-08-03 05:36 | XMS REPORT ---
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 Active 58554544513504999 Problem Acute pharyngitis 462 Active 834938562 Problem Personality disorder in adult F60.9 Active 26604698 Problem Paranoid personality disorder F60.0 Active [id number] ALLERGIES No Information ENCOUNTERS Encounter Location Date Diagnosis [facility] [address], [place] [address] 28 Apr, 2018 [facility] [id number] [place] [address]50- 0081 14 Apr, 2018 [facility] [address], [place] [address] 31 Mar, 2018 [facility] [address], [place] [address] 15 Mar, 2018 [facility] [id number] [address] Feb, Post-traumatic stress disorder, chronic F43.12 and Paranoid personality disorder F60.0 [facility] [id number], [place] [address] Feb, 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 ; Post-traumatic stress disorder, chronic F43.12 ; Paranoid personality disorder F60.0 ; High risk medication use Z79.899 and Personality disorder in adult F60.9 [facility] [address] [place] [address] 62347- 0317 19 Feb, 2018 [facility] [id number] [place] [address] 41217- 9127 17 Feb, 2018 Major depressive disorder, recurrent episode, moderate F33.1 ; Paranoid personality disorder F60.0 and 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 [facility] [id number] [place] [address] 92193- 9231 14 Feb, 2018 [facility] [id number] [place] [address] 67021- 9360 04 Feb, 2018 [facility] [id number] [place] [address] 26878- 4371 Jan, Major depressive disorder, recurrent episode, moderate F33.1 ; Paranoid personality disorder F60.0 and 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 [facility] [id number] [place] [address] 59606- 0749 Jan, [facility] [id number] [place] [address] 43918- 7631 Jan, [facility] [address] [place] [address] 73475- 5152 Jan, Major depressive disorder, recurrent episode, moderate F33.1 ; Paranoid personality disorder F60.0 and 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 [facility] [address] [place] [address] 49642- 1176 Jan, Major depressive disorder, recurrent episode, moderate F33.1 ; Paranoid personality disorder F60.0 and 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 [facility] [address] [place] [address] 28314- 5908 Dec, 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 ; Post-traumatic stress disorder, chronic F43.12 ; Paranoid personality disorder F60.0 ; High risk medication use Z79.899 and Personality disorder in adult F60.9 [facility] [address] [facility] [id number], [place] [address] Dec, Major depressive disorder, recurrent episode, moderate F33.1 ; Paranoid personality disorder F60.0 and 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 [facility] [address] [facility] [id number], [place] [address] Dec, Major depressive disorder, recurrent episode, moderate F33.1 ; Paranoid personality disorder F60.0 and 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 [facility] [address] [facility] [id number], [place] [address] Dec, [facility] [address] [facility] [id number] [place] [address] 96232- 3744 Nov, [facility] [address] [facility] [id number], [place] [address] Nov, Major depressive disorder, recurrent episode, moderate F33.1 ; Paranoid personality disorder F60.0 and 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 [facility] [id number], [place] [address] Nov, [facility] [id number] [address] 0[address] Nov, [facility] [id number] [address] 8326 Nov, Major depressive disorder, recurrent episode, moderate F33.1 ; Paranoid personality disorder F60.0 and 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 [facility] [address] [facility] [id number], [place] [address] Nov, [facility] [address] [facility] [id number] [place] [address] 51500- 2311 Nov, [facility] [address] [facility] [id number], [place] [address] October, 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 ; Post-traumatic stress disorder, chronic F43.12 ; Paranoid personality disorder F60.0 ; High risk medication use Z79.899 and Personality disorder in adult F60.9 [address], [place] [address] October, Major depressive disorder, recurrent episode, moderate F33.1 ; Paranoid personality disorder F60.0 and 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 [address], [place] [address] October, Major depressive disorder, recurrent episode, moderate F33.1 ; Paranoid personality disorder F60.0 and 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 [place] [address] [address], [place] [address] 0[address] Sep, Major depressive disorder, recurrent episode, moderate F33.1 ; Paranoid personality disorder F60.0 and 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 [place] [facility] [address], [place] [address] 58[address] Sep, Major depressive disorder, recurrent episode, moderate F33.1 and 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 [place] [address] [place] [address] 95779- 0763 Aug, Major depressive disorder, recurrent episode, moderate F33.1 and 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 [place] [address], [place] [address] 28 Jul, 2017 Major depressive disorder, recurrent episode, moderate F33.1 and 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 [place] [address], [place] [address] 14 Jul, 2017 Major depressive disorder, recurrent episode, moderate F33.1 and 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 [place] [address] [place] [address] 14001- 2430 Jun, Major depressive disorder, recurrent episode, moderate F33.1 and 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 [place] [address], [place] [address]- [address] Jun, Major depressive disorder, recurrent episode, moderate F33.1 and 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 [facility] [address], [place] [address]- 6[address] May, Major depressive disorder, recurrent episode, moderate F33.1 and 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 [facility] [id number], [place] [address] 1066 May, Major depressive disorder, recurrent episode, moderate F33.1 and 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 [facility] [id number], [place] [address]- 3654 Apr, [place] [id number] [place] [address] 12313- 8907 Apr, Major depressive disorder, recurrent episode, moderate F33.1 and 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 [place] [address], [place] [address]- 7387 Mar, Major depressive disorder, recurrent episode, moderate F33.1 and 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 [facility] [address], [place] [address]- 3156 Mar, Major depressive disorder, recurrent episode, moderate F33.1 [facility] [address], [place] [address]- 9142 Feb, Major depressive disorder, recurrent episode, moderate F33.1 [facility] [address], [place] [address]- 5018 Jan, Major depressive disorder, recurrent episode, moderate F33.1 [facility] [address], [place] [address]- 5401 Jan, Major depressive disorder, recurrent episode, moderate F33.1 [facility] [id number], [place] [address]- 3655 Dec, Major depressive disorder, recurrent episode, moderate F33.1 [facility] [address], [place] [address]- 8599 Dec, Major depressive disorder, recurrent episode, moderate F33.1 [facility] [address], [place] [address]- 0046 Jul, Major depressive disorder, recurrent episode, moderate F33.1 [facility] [address], [place] [address]- 1226 Jul, Major depressive disorder, recurrent episode, moderate F33.1 [facility] [address], [place] [address]- 3736 Jun, Major depressive disorder, recurrent episode, moderate F33.1 [facility] [id number] [place] [address] 53220- 2556 May, Major depressive disorder, recurrent episode, moderate F33.1 [facility] [address], [place] [address]- 2066 Apr, Major depressive disorder, recurrent episode, moderate F33.1 [facility] [address], [place] [address]- 4364 Mar, [facility] [id number] [place] [address] 882171- 2938 Feb, Major depressive disorder, recurrent episode, moderate F33.1 [facility] [address], [place] [address]- 9046 Jan, Major depressive disorder, recurrent episode, moderate F33.1 [facility] [address], [place] [address]- 5116 Dec, Major depressive disorder, recurrent episode, moderate F33.1 [facility] [address], [place] [address]- 8206 Nov, Major depressive disorder, recurrent episode, moderate F33.1 [facility] [address], [place] [address]- 7976 Jul, Major depressive disorder, recurrent episode, moderate F33.1 [facility] [address], [place] [address]- 6576 Jan, Major depressive disorder, recurrent episode, moderate 296.32 [facility] [address], [place] [address]- [address] Jan, Major depressive disorder, recurrent episode, moderate 296.32 [facility] [address], [place] [address]- 7826 Dec, Major depressive disorder, recurrent episode, moderate 296.32 [facility] [address], [place] [address]- 0566 Dec, Major depressive disorder, recurrent episode, moderate 296.32 [facility] [address], [place] [address]- 7386 Nov, Major depressive disorder, recurrent episode, moderate 296.32 [facility] [address], [place] [address]- 6376 October, Major depressive disorder, recurrent episode, moderate 296.32 [facility] [address], [place] [address]- 2748 Sep, [facility] [address], [place] [address]- 1866 Sep, [facility] [id number], [place] [address]- 4796 Aug, [facility] [address], [place] [address]- 6326 Aug, [facility] [address], [place] [address]- 9216 Aug, [facility] [address], [place] [address]- 2546 Aug, [facility] [id number], [place] [address]- 2546 Aug, [facility] [address], [place] [address]- 8529 Jul, 2014 [facility] [place] [facility] [address] [id number] [place] [address]- 9453 Jul, 2014 [facility] [place] [facility] [address] [id number] [place] [address]- 9349 Jul, [facility] [place] [facility] [address] [facility] [id number] [place] [address]- 8296 Jul, [facility] [place] [facility] [address] [id number] [place] [address]- 1107 Jun, [facility] [place] [facility] [address] [id number] [place] [address]- 6031 Jun, [facility] [place] [facility] [address] [id number] [place] [address]- 5265 May, [facility] [place] [facility] [address] [facility] [id number] [place] [address]- 1249 May, [facility] [place] [facility] [address] [id number] [place] [address]- 4301 Apr, [facility] [place] [facility] [address] [id number] [place] [address]- 5336 Apr, [facility] [place] [facility] [address] [id number] [place] [address]- 5862 Mar, [facility] [place] [facility] [address] [id number], [place] [address]- 9865 Mar, [facility] [place] [facility] [address] [id number], [place] [address]- 2035 Mar, [facility] [place] [facility] [address] [id number] [place] [address]- 8783 Mar, [facility] [place] [facility] [address] [facility] [id number] [place] [address]- 8638 Mar, [facility] [place] [facility] [address] [facility] [id number] [place] [address]- 3595 Mar, [facility] [place] [facility] [address] [id number] [place] [address]- 5214 Mar, [facility] [address] [id number] [place] [address]- 3042 Mar, [facility] [place] [facility] [address] [id number] [place] 7963 Feb, [facility] [place] [facility] [address] [id number] [place] [address]- 6973 Feb, [facility] [place] [facility] [address] [id number] [place] [address]- 2524 Feb, [facility] [place] [facility] [address] [id number] [place] [address]- 9549 Feb, [facility] [place] [facility] [address] [id number] [place] [address]- 4035 Jan, [facility] [place] [facility] [address] [id number] [place] [address]- 4089 Jan, [facility] [place] [facility] [address] [id number] [place] [address]- 6957 Dec, [facility] [place] [facility] [address] [id number] [place] [address]- 2054 Dec, [facility] [place] [facility] [address] [id number] [place] [address]- 3122 Nov, [facility] [place] [facility] [address] [id number] [place] [address]- 0135 Nov, [facility] [place] [facility] [address] [id number] [place] [address]- 7760 October, [facility] [place] [facility] [address] [id number] [place] [address]- 5279 October, [facility] [place] [facility] [address] [id number] [place] [address]- 3191 Sep, [facility] [place] [facility] [address] [id number] [place] [address]- 0671 Sep, [facility] [address], [place] [address]- 1081 Aug, [facility] [address], [place] [address]- 6272 Aug, [facility] [address], [place] [address]- 4534 Jul, [facility] [address] [place] [address] 07758- 7700 Jul, [facility] [address] [address]47 Jun, [facility] [address] [place] [address] 76660- 3645 Jun, [facility] [address] [place] [address] 16282- 4021 Mar, [facility] [id number] [place] [address] 598156- 9751 Mar, [facility] [address], [place] [address]- 4645 Mar, [facility] [address], [place] [address]- 3332 Mar, [facility] [address], [place] [address]- [address] Mar, [facility] [id number], [place] [address]- 3985 May, IMMUNIZATIONS No Known Immunizations SOCIAL HISTORY Never Assessed REASON FOR VISIT f/u PLAN OF CARE Activity Details Follow Up 2 Months Reason: VITAL SIGNS Height 69.5 in 2018-03-02 Weight 208 lbs 2018-03-02 Heart Rate 108 bpm 2018-03-02 Respiratory Rate 20 2018-03-02 BMI 30.27 kg/m2 2018-03-02 Blood pressure systolic 122 mmHg 2018-03-02 Blood pressure diastolic 76 mmHg 2018-03-02 MEDICATIONS Medication Instructions Dosage Frequency Start Date End Date Duration Status Effexor XR 150 MG Orally Once a day take 1 capsule by Oral route 2 times per day 24h Mar, 30 days Active Savella 100 MG Orally Once a day 1 tablet 24h Mar, Active trazodone 100 mg 2 tablets Mar, Active Hydrocodone-Acetaminophen 10-325 MG Orally 4 times a day 1 tablet 6h Active Diazepam 10 MG Orally 4 times a day 1 tablet 6h Mar, Active Entyvio 300 MG Intravenous once every 2 months Active B-12 Compliance Injection 1000 MCG/ML Injection once monthly 1 ml Active Protonix 40 MG Orally Once a day 1 tablet 24h Active Melatonin 5 MG Orally Once a day 1 tablet at bedtime as needed with food 24h Active Calcium Citrate + D 250-200 MG-UNIT Orally Twice a day 1 tablet 12h Active Generlac 10 GM/15ML Orally PRN 15 ml Active Lipitor 20 mg 1 tablet by Oral route 1 time per day Mar, Active Systane 0.4-0.3 % Ophthalmic 24 time(s) a day 1 drop into affected eye as needed Active Niacin Flush-Free Ex St 750 MG Orally Once a day 1 capsule 24h Active Valerian - Orally Once a day 2 capsules 24h Active Advair Diskus 250-50 MCG/DOSE Inhalation Twice a day 1 puff 12h Active PredniSONE 5 MG Orally Once a day 1 tablet 24h Active Grapeseed Extract 500-50 MG Orally 2 times a day 12h Active Seroquel 200 MG Orally 2 times a day take 1 tablet (100 mg) by oral route 2 times per day 12h Mar, 30 days Active Oxygen Active Metoprolol Tartrate 25 mg Orally Twice a day 1/2 tablet 12h Mar, Active Tramadol HCl 50 mg Orally 3 times a day 1 to 2 tablet as needed 8h Active cyclobenzaprine 10 mg take 1 tablet (10 mg) by oral route 3 times per day Mar, Active D3 Adult 1000 UNIT Orally Once a day 1 tablet 24h Active Claritin-D 12 Hour 5-120 MG Orally 2 times a day 1 tablet 12h Active Budesonide 3 MG Active ProAir HFA 90 mcg/actuation inhale 2 puffs by Inhalation route every 4 hours as needed PRN shortness of breath/cough Mar, Active RESULTS No Results PROCEDURES Procedure Date Ordered Result Body Site [facility] VISIT ESTABLISHED PATIENT Mar 02, 2018 INSTRUCTIONS MEDICATIONS ADMINISTERED No Known Medications [...]
--- OUTSIDE RECORDS SUMMARY | 2018-08-03 05:36 | XMS REPORT ---
Author Author HAMMAD RUIZ [facility] [address] Address [address] [place] [address] Care Team Providers Care Assembly Inspector Helper Name Role Phone HAMMAD RUIZ Unavailable PROBLEMS ALLERGIES No Information ENCOUNTERS IMMUNIZATIONS No Known Immunizations SOCIAL HISTORY No smoking Hx information available REASON FOR VISIT PLAN OF CARE VITAL SIGNS MEDICATIONS RESULTS No Results PROCEDURES No Known procedures INSTRUCTIONS MEDICATIONS ADMINISTERED No Known Medications MEDICAL (GENERAL) HISTORY
--- OUTSIDE RECORDS SUMMARY | 2018-08-03 05:36 | XMS REPORT ---
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 Active [id number] Problem Acute pharyngitis 462 Active 291829958 Problem Personality disorder in adult F60.9 Active 82641094 Problem Paranoid personality disorder F60.0 Active [id number] ALLERGIES No Information ENCOUNTERS Encounter Location Date Diagnosis [facility] [id number] [address] 28 Apr, 2018 [facility] [id number] [place] [address] 39590- 0194 14 Apr, 2018 [facility] [address] [address] 31 Mar, 2018 [facility] [id number], [place] [address] 15 Mar, 2018 [facility] [id number] [address] Feb, Post-traumatic stress disorder, chronic F43.12 and Paranoid personality disorder F60.0 [facility] [address] [id number] [address] Feb, 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 ; Post-traumatic stress disorder, chronic F43.12 ; Paranoid personality disorder F60.0 ; High risk medication use Z79.899 and Personality disorder in adult F60.9 [facility] [id number] [place] [address] 76644- 8285 19 Feb, 2018 [facility] [id number] [place] [address] 00741- 4568 17 Feb, 2018 Major depressive disorder, recurrent episode, moderate F33.1 ; Paranoid personality disorder F60.0 and 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 [facility] [id number] [place] [address] 62174- 0705 14 Feb, 2018 [facility] [id number] [place] [address] 06275- 9077 04 Feb, 2018 [facility] [id number] [place] [address] 43622- 6414 Jan, Major depressive disorder, recurrent episode, moderate F33.1 ; Paranoid personality disorder F60.0 and 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 [facility] [id number] [place] [address] 36129- 9764 Jan, [facility] [id number] [place] [address] 88206- 5422 Jan, [facility] [id number] [place] [address] 58272- 0608 Jan, Major depressive disorder, recurrent episode, moderate F33.1 ; Paranoid personality disorder F60.0 and 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 [facility] [id number] [place] [address] 13788- 6070 Jan, Major depressive disorder, recurrent episode, moderate F33.1 ; Paranoid personality disorder F60.0 and 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 [facility] [id number] [place] [address] 28280- 1463 Dec, 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 ; Post-traumatic stress disorder, chronic F43.12 ; Paranoid personality disorder F60.0 ; High risk medication use Z79.899 and Personality disorder in adult F60.9 [facility] [address] [facility] [id number] [address] Dec, Major depressive disorder, recurrent episode, moderate F33.1 ; Paranoid personality disorder F60.0 and 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 [facility] [address] [facility] [id number] [address] Dec, Major depressive disorder, recurrent episode, moderate F33.1 ; Paranoid personality disorder F60.0 and 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 [facility] [address] [facility] [id number] [address] Dec, [facility] [address] [facility] [id number] [place] [address] 27938- 9111 Nov, [facility] [address] [facility] [id number] [address] 2929 Nov, Major depressive disorder, recurrent episode, moderate F33.1 ; Paranoid personality disorder F60.0 and 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 [facility] [id number] [address] 4710 Nov, [facility] [address] [id number] [address]- 6421 Nov, [facility] [id number] [address] 9055 Nov, Major depressive disorder, recurrent episode, moderate F33.1 ; Paranoid personality disorder F60.0 and 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 [facility] [address] [facility] [id number], [place] [address] 6036 Nov, [facility] [address] [facility] [id number] [place] [address] 69085- 5422 Nov, [facility] [address] [facility] [id number] [address]82 October, 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 ; Post-traumatic stress disorder, chronic F43.12 ; Paranoid personality disorder F60.0 ; High risk medication use Z79.899 and Personality disorder in adult F60.9 [address] [address] October, Major depressive disorder, recurrent episode, moderate F33.1 ; Paranoid personality disorder F60.0 and 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 [address] [address] 7474 October, Major depressive disorder, recurrent episode, moderate F33.1 ; Paranoid personality disorder F60.0 and 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 [address] [address] [address]- 7905 Sep, Major depressive disorder, recurrent episode, moderate F33.1 ; Paranoid personality disorder F60.0 and 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 [address] [address] [address] 6126 Sep, Major depressive disorder, recurrent episode, moderate F33.1 and 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 [address] [id number] [place] [address] 89986- 2958 Aug, Major depressive disorder, recurrent episode, moderate F33.1 and 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 [address] [facility] [address] [address] 9556 28 Jul, 2017 Major depressive disorder, recurrent episode, moderate F33.1 and 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 [address] [address] [address]- 8371 14 Jul, 2017 Major depressive disorder, recurrent episode, moderate F33.1 and 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 [address] [id number] [place] [address] 31566- 7320 Jun, Major depressive disorder, recurrent episode, moderate F33.1 and 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 [address] [address] [address]- 1883 Jun, Major depressive disorder, recurrent episode, moderate F33.1 and 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 [facility] [address] [address] 2715 May, Major depressive disorder, recurrent episode, moderate F33.1 and 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 [facility] [id number] [address] 0126 May, Major depressive disorder, recurrent episode, moderate F33.1 and 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 [facility] [id number] [address]- 9484 Apr, [address] [id number] [place] [address] 94949- 5797 Apr, Major depressive disorder, recurrent episode, moderate F33.1 and 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 [address], [place] [address]- 9197 Mar, Major depressive disorder, recurrent episode, moderate F33.1 and 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 [facility] [address] [address]- 8360 Mar, Major depressive disorder, recurrent episode, moderate F33.1 [facility] [address], [place] [address]- 2509 Feb, Major depressive disorder, recurrent episode, moderate F33.1 [facility] [address] [address]- 9032 Jan, Major depressive disorder, recurrent episode, moderate F33.1 [facility] [address] [address]- 6965 Jan, Major depressive disorder, recurrent episode, moderate F33.1 [facility] [id number] [address]- 8085 Dec, Major depressive disorder, recurrent episode, moderate F33.1 [facility] [address] [address]- 0930 Dec, Major depressive disorder, recurrent episode, moderate F33.1 [facility] [address], [place] [address]- 9836 Jul, Major depressive disorder, recurrent episode, moderate F33.1 [facility] [address], [place] [address]- 7946 Jul, Major depressive disorder, recurrent episode, moderate F33.1 [facility] [address], [place] [address]- 7316 Jun, Major depressive disorder, recurrent episode, moderate F33.1 [facility] [id number] [place] [address] 43859- 9816 May, Major depressive disorder, recurrent episode, moderate F33.1 [facility] [address], [place] [address]- 4029 Apr, Major depressive disorder, recurrent episode, moderate F33.1 [facility] [address] [address]- 3337 Mar, [facility] [id number] [place] [address] 710609- 3352 Feb, Major depressive disorder, recurrent episode, moderate F33.1 [facility] [address], [place] [address]- 4426 Jan, Major depressive disorder, recurrent episode, moderate F33.1 [facility] [address] [address]- 5616 Dec, Major depressive disorder, recurrent episode, moderate F33.1 [facility] [address] [address]- 5236 Nov, Major depressive disorder, recurrent episode, moderate F33.1 [facility] [address] [address]- 4146 Jul, Major depressive disorder, recurrent episode, moderate F33.1 [facility] [address], [place] [address]- 7336 Jan, Major depressive disorder, recurrent episode, moderate 296.32 [facility] [address], [place] [address]- 9936 Jan, Major depressive disorder, recurrent episode, moderate 296.32 [facility] [address], [place] [address]- 8916 Dec, Major depressive disorder, recurrent episode, moderate 296.32 [facility] [address] [address]- 0326 Dec, Major depressive disorder, recurrent episode, moderate 296.32 [facility] [address], [place] [address]- 2866 Nov, Major depressive disorder, recurrent episode, moderate 296.32 [facility] [address] [address]- 6586 October, Major depressive disorder, recurrent episode, moderate 296.32 [facility] [address] [address]- 7867 Sep, [facility] [address], [place] [address]- 9506 Sep, [facility] [address] [id number] [address]- 4106 Aug, [facility] [address], [place] [address]- 5646 Aug, [facility] [address], [place] [address]- 9886 Aug, [facility] [address], [place] [address]- 2546 Aug, [facility] [address] [id number] [address]- 2546 Aug, [facility] [address], [place] [address]- 9476 Jul, 2014 [facility] [place] [facility] [address] [id number] [place] [address]- 7920 Jul, 2014 [facility] [place] [facility] [address] [id number] [place] [address]- 0534 Jul, [facility] [place] [facility] [address] [facility] [id number] [place] [address]- 7056 Jul, [facility] [place] [facility] [address] [id number] [place] [address]- 7532 Jun, [facility] [place] [facility] [address] [id number] [place] [address]- 5967 Jun, [facility] [place] [facility] [address] [id number] [place] [address]- 3366 May, [facility] [place] [facility] [address] [facility] [id number] [place] [address]- 0384 May, [facility] [place] [facility] [address] [id number] [place] [address]- 8942 Apr, [facility] [place] [facility] [address] [id number] [place] [address]- 9306 Apr, [facility] [place] [facility] [address] [id number] [place] [address]- 9399 Mar, [facility] [place] [facility] [address] [id number] [address]- 5972 Mar, [facility] [place] [facility] [address] [id number] [address]- 5627 Mar, [facility] [place] [facility] [address] [id number] [place] [address]- 2337 Mar, [facility] [place] [facility] [address] [facility] [id number] [place] [address]- 4483 Mar, [facility] [place] [facility] [address] [facility] [id number] [place] [address]- 8732 Mar, [facility] [place] [facility] [address] [id number] [place] [address]- 8227 Mar, [facility] [address] [id number] [place] [address]- 8223 Mar, [facility] [place] [facility] [address] [id number] [place] [address]3 Feb, [facility] [place] [facility] [address] [id number] [place] [address]- 4895 Feb, [facility] [place] [facility] [address] [id number] [place] [address]- 7735 Feb, [facility] [place] [facility] [address] [id number] [place] [address]- 4579 Feb, [facility] [place] [facility] [address] [id number] [place] [address]- 6924 Jan, [facility] [place] [facility] [address] [id number] [place] [address]- 3528 Jan, [facility] [place] [facility] [address] [id number] [place] [address]- 5758 Dec, [facility] [place] [facility] [address] [id number] [place] [address]- 0013 Dec, [facility] [place] [facility] [address] [id number] [place] [address]- 5477 Nov, [facility] [place] [facility] [address] [id number] [place] [address]- 5746 Nov, [facility] [place] [facility] [address] [id number] [place] [address]- 3255 October, [facility] [place] [facility] [address] [id number] [place] [address]- 5780 October, [facility] [place] [facility] [address] [id number] [place] [address]- 3755 Sep, [facility] [place] [facility] [address] [id number] [place] [address]- 5906 Sep, [facility] [id number], [place] [address]- 0322 Aug, [facility] [address], [place] [address]- 8328 Aug, [facility] [address], [place] [address]- 3117 Jul, [facility] [id number] [place] [address] 52123- 6179 Jul, [facility] [address]- 2531 Jun, [facility] [id number] [place] [address] 816662- 2655 Jun, [facility] [id number] [place] [address] 05105- 3207 Mar, [facility] [id number] [place] [address] 454159- 0700 Mar, [facility] [id number] [place] [address] 80905- 9897 Mar, [facility] [address], [place] [address]- 3137 Mar, [facility] [address], [place] [address]- 9990 Mar, [facility] [id number] [address]- 1599 May, IMMUNIZATIONS No Known Immunizations SOCIAL HISTORY Never Assessed REASON FOR VISIT Requests return call PLAN OF CARE VITAL SIGNS MEDICATIONS [...]
--- OUTSIDE RECORDS SUMMARY | 2018-08-03 05:37 | XMS REPORT ---
Author Author HAMMAD RUIZ [facility] [address] Address [address] [place] [address] Care Team Providers Care Sales Product Specialist Name Role Phone JOSEPH, HAMMAD Unavailable PROBLEMS Type Condition ICD9-CM Code [id number] Code Onset Dates Condition Status SNOMED Code Problem Major depressive disorder, recurrent episode, moderate F33.1 Active 413840900 Problem Post-traumatic stress disorder, chronic F43.12 Active 246050515 Problem High risk medication use Z79.899 Active 545065983882341 Problem 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 Active [id number] Problem Acute pharyngitis 462 Active 844932697 Problem Personality disorder in adult F60.9 Active 36723567 Problem Paranoid personality disorder F60.0 Active 74657120 ALLERGIES No Information ENCOUNTERS Encounter Location Date Diagnosis [facility] [address] [address] Apr, [facility] [id number] [place] [address]- [address]107 Mar, [facility] [address] [address] Mar, [facility] [id number] [place] [address]- 4054 Feb, [facility] [id number] [place] [address] 54496- 4357 Feb, [facility] [id number] [place] [address] 29155- 8940 Feb, Major depressive disorder, recurrent episode, moderate F33.1 ; Paranoid personality disorder F60.0 and 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 [facility] [id number] [place] [address]365- 6819 14 Feb, 2018 [facility] [address] [address] Feb, [facility] [address] [address] Jan, Major depressive disorder, recurrent episode, moderate F33.1 ; Paranoid personality disorder F60.0 and 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 [place] [address], [place] [address] Jan, [facility] [address], [place] [address] Jan, [place] [address], [place] [address] Jan, Major depressive disorder, recurrent episode, moderate F33.1 ; Paranoid personality disorder F60.0 and 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 [place] [address] [address] Jan, Major depressive disorder, recurrent episode, moderate F33.1 ; Paranoid personality disorder F60.0 and 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 [place] [address], [place] [address] Dec, 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 ; Post-traumatic stress disorder, chronic F43.12 ; Paranoid personality disorder F60.0 ; High risk medication use Z79.899 and Personality disorder in adult F60.9 [facility] [id number] [address] Dec, Major depressive disorder, recurrent episode, moderate F33.1 ; Paranoid personality disorder F60.0 and 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 [place] [address], [place] [address] Dec, Major depressive disorder, recurrent episode, moderate F33.1 ; Paranoid personality disorder F60.0 and 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 [place] [address] [address] Dec, [facility] [address] [address] Nov, [facility] [address] [address] Nov, Major depressive disorder, recurrent episode, moderate F33.1 ; Paranoid personality disorder F60.0 and 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 [facility] [address], [place] [address] Nov, [facility] [id number] [place] [address]60- 5739 Nov, [facility] [address] [address] 1694 Nov, Major depressive disorder, recurrent episode, moderate F33.1 ; Paranoid personality disorder F60.0 and 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 [facility] [address], [place] [address] 59[address] Nov, [facility] [address] [address]- [address] Nov, [facility] [address] [address] October, 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 ; Post-traumatic stress disorder, chronic F43.12 ; Paranoid personality disorder F60.0 ; High risk medication use Z79.899 and Personality disorder in adult F60.9 [facility] [id number] [address] October, Major depressive disorder, recurrent episode, moderate F33.1 ; Paranoid personality disorder F60.0 and 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 [facility] [address] [address]- 5123 October, Major depressive disorder, recurrent episode, moderate F33.1 ; Paranoid personality disorder F60.0 and 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 [address] [id number] [place] [address] 83179- 2347 Sep, Major depressive disorder, recurrent episode, moderate F33.1 ; Paranoid personality disorder F60.0 and 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 [place] [id number] [place] [address] 32530- 7347 Sep, Major depressive disorder, recurrent episode, moderate F33.1 and 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 [place] [id number] [place] [address] 34014- 2203 Aug, Major depressive disorder, recurrent episode, moderate F33.1 and 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 [facility] [id number] [place] [address] 96796- 0567 28 Jul, 2017 Major depressive disorder, recurrent episode, moderate F33.1 and 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 [facility] [facility] [id number] [place] [address] 56706- 4325 Jul, Major depressive disorder, recurrent episode, moderate F33.1 and 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 [facility] [id number] [place] [address] 53937- 1830 Jun, Major depressive disorder, recurrent episode, moderate F33.1 and 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 [place] [address] [place] [address] 10955- 8566 Jun, Major depressive disorder, recurrent episode, moderate F33.1 and 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 [place] [id number] [place] [address] 26348- 5520 May, Major depressive disorder, recurrent episode, moderate F33.1 and 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 [place] [id number] [place] [address] 48207- 9366 05 May, 2017 Major depressive disorder, recurrent episode, moderate F33.1 and 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 [facility] [id number] [address] Apr, [facility] [address] [address]- 2086 Apr, Major depressive disorder, recurrent episode, moderate F33.1 and Illness anxiety disorder F45.21 [facility] [address], [place] [address]- 4596 Mar, Major depressive disorder, recurrent episode, moderate F33.1 and Illness anxiety disorder F45.21 [facility] [address] [address]- 3156 Mar, Major depressive disorder, recurrent episode, moderate F33.1 [facility] [address] [address]- [address]76 Feb, Major depressive disorder, recurrent episode, moderate F33.1 [facility] [address], [place] [address]- 6936 Jan, Major depressive disorder, recurrent episode, moderate F33.1 [facility] [address] [address]- 2459 Jan, Major depressive disorder, recurrent episode, moderate F33.1 [facility] [address] [address]- 9781 Dec, Major depressive disorder, recurrent episode, moderate F33.1 [facility] [address] [address]- 9406 Dec, Major depressive disorder, recurrent episode, moderate F33.1 [facility] [address] [address]- 6466 Jul, Major depressive disorder, recurrent episode, moderate F33.1 [facility] [address] [address] Jul, Major depressive disorder, recurrent episode, moderate F33.1 [facility] [address] [address]- 0407 Jun, Major depressive disorder, recurrent episode, moderate F33.1 [facility] [address] [address] May, Major depressive disorder, recurrent episode, moderate F33.1 [facility] [address] [address] Apr, Major depressive disorder, recurrent episode, moderate F33.1 [facility] [address] [address] Mar, [facility] [address] [address]- 2448 Feb, Major depressive disorder, recurrent episode, moderate F33.1 [facility] [address], [place] [address]- 8636 Jan, Major depressive disorder, recurrent episode, moderate F33.1 [facility] [address], [place] [address]- 1937 Dec, Major depressive disorder, recurrent episode, moderate F33.1 [facility] [address], [place] [address]- 0464 Nov, Major depressive disorder, recurrent episode, moderate F33.1 [facility] [address], [place] [address]- 3329 Jul, Major depressive disorder, recurrent episode, moderate F33.1 [facility] [address] [address] 8524 Jan, Major depressive disorder, recurrent episode, moderate 296.32 [facility] [address], [place] [address]- 8230 Jan, Major depressive disorder, recurrent episode, moderate 296.32 [facility] [address], [place] [address]- 5370 Dec, Major depressive disorder, recurrent episode, moderate 296.32 [facility] [address], [place] [address]- 2546 10 Dec, 2014 Major depressive disorder, recurrent episode, moderate 296.32 [facility] [address] [place] [address]- 7146 Nov, Major depressive disorder, recurrent episode, moderate 296.32 [facility] [address] [place] [address]- 8196 October, Major depressive disorder, recurrent episode, moderate 296.32 [facility] [address] [place] [address]- 6156 Sep, [facility] [address] [place] [address]- 7546 Sep, [facility] [address] [place] [address]- 1156 Aug, [facility] [address] [address]- 4756 Aug, [facility] [address], [place] [address]- 0506 Aug, [facility] [address] [place] [address]- 5116 Aug, [facility] [address], [place] [address]- 8006 Aug, [facility] [address], [place] [address]- 2546 Jul, [facility] [id number] [address]- 2546 Jul, [facility] [id number] [place] [address]- 2546 Jul, [facility] [id number] [address]- 2546 Jul, [facility] [id number] [address]- 4145 Jun, [facility] [place] [facility] [address] [id number] [place] [address]- 3329 Jun, [facility] [place] [facility] [address] [id number] [place] [address]- 5566 May, [facility] [place] [facility] [address] [id number] [place] [address]- 3718 May, [facility] [place] [facility] [address] [id number] [place] [address]- 7950 Apr, [facility] [place] [facility] [address] [id number] [place] [address]- 5647 Apr, [facility] [place] [facility] [address] [id number] [place] [address]- 5140 Mar, [facility] [place] [facility] [address] [id number] [place] [address]- 6924 Mar, [facility] [place] [facility] [address] [id number] [place] [address]- 6871 Mar, [facility] [place] [facility] [address] [id number] [place] [address]- 2289 Mar, [facility] [place] [facility] [address] [id number] [place] [address]- 6140 Mar, [facility] [place] [facility] [address] [id number], [place] [address]- 7507 Mar, [facility] [place] [facility] [address] [id number], [place] [address]- 0152 Mar, [facility] [place] [facility] [address] [id number] [place] [address]- 0863 Mar, [facility] [place] [facility] [address] [id number], [place] [address]- 3074 Feb, [facility] [place] [facility] [address] [id number] [address]- 1171 Feb, [facility] [place] [facility] [address] [id number] [place] [address]- 7016 Feb, [facility] [place] [facility] [address] [id number] [place] [address]- 7303 Feb, [facility] [place] [facility] [address] [id number] [place] [address]- 2640 Jan, [facility] [place] [facility] [address] [id number] [place] 5899 Jan, [facility] [place] [facility] [address] [id number] [place] [address]- 3864 Dec, [facility] [place] [facility] [address] [id number] [place] [address]- 8430 Dec, [facility] [place] [facility] [address] [id number] [place] [address]- 1369 Nov, [facility] [place] [facility] [address] [id number] [place] [address]- 1745 Nov, [facility] [place] [facility] [address] [id number] [place] [address]- 4640 October, [facility] [place] [facility] [address] [id number] [place] [address]- 0958 October, [facility] [place] [facility] [address] [id number] [place] [address]- 9584 Sep, [facility] [place] [facility] [address] [id number] [place] [address]- 4374 Sep, [facility] [place] [facility] [address] [id number] [place] [address]- 0298 Aug, [facility] [place] [facility] [address] [id number] [place] [address]- 0113 Aug, [facility] [place] [facility] [address] [id number] [place] [address]- 3486 Jul, [facility] [place] [facility] [address] [id number] [place] [address]- 8654 Jul, [facility] [id number]4 Jun, [facility] [address] 97[address] Jun, [facility] [address] 3867 Mar, [facility] [address] [address]- 0644 Mar, [facility] [address] [address] Mar, [facility] [address]- 1994 Mar, [facility] [address], [place] [address]- 4835 Mar, [facility] [address] [address] May, IMMUNIZATIONS No Known Immunizations SOCIAL HISTORY [...]
--- OUTSIDE RECORDS SUMMARY | 2018-08-03 05:37 | XMS REPORT ---
Author Author YON CONSTANTINO Organization [facility] Address [address] [place] [address] Care Team Providers Care Casino Host Name Role Phone YON CONSTANTINO Unavailable PROBLEMS Type Condition ICD9-CM Code TRW20-SZ Code Onset Dates Condition Status SNOMED Code Problem Major depressive disorder, recurrent episode, moderate F33.1 Active 937020721 Problem Post-traumatic stress disorder, chronic F43.12 Active 891685082 Problem High risk medication use Z79.899 Active [id number] Problem Illness anxiety disorder F45.21 Active [id number] Problem Acute pharyngitis 462 Active 967696760 Problem Personality disorder in adult F60.9 Active 16386831 Problem Paranoid personality disorder F60.0 Active [id number] ALLERGIES No Information ENCOUNTERS Encounter Location Date Diagnosis [facility] [id number] [place] [address] 55250- 1227 Apr, [facility] [id number] [place] [address] 13310- 5260 Apr, [facility] [id number] [place] [address] 98626- 6955 31 Mar, 2018 [facility] [id number] [place] [address] 49824- 8119 Mar, [facility] [id number] [place] [address] 40311- 2262 Feb, Post-traumatic stress disorder, chronic F43.12 and Paranoid personality disorder F60.0 [facility] [address] [address] Feb, Illness anxiety disorder F45.21 ; Post-traumatic stress disorder, chronic F43.12 ; Paranoid personality disorder F60.0 ; High risk medication use Z79.899 and Personality disorder in adult F60.9 [facility] [address], [place] [address] 0880 19 Feb, 2018 [facility] [id number] [place] [address] 20383- 1391 17 Feb, 2018 Major depressive disorder, recurrent episode, moderate F33.1 ; Paranoid personality disorder F60.0 and Illness anxiety disorder F45.21 [facility] [address], [place] [address] 0654 14 Feb, 2018 [facility] [id number] [place] [address] 99065- 4101 04 Feb, 2018 [facility] [id number] [place] [address] 62602- 1247 Jan, Major depressive disorder, recurrent episode, moderate F33.1 ; Paranoid personality disorder F60.0 and Illness anxiety disorder F45.21 [facility] [address] [address] 7324 Jan, [facility] [id number] [place] [address] 60957- 4597 Jan, [facility] [id number] [place] [address] 71614- 5026 Jan, Major depressive disorder, recurrent episode, moderate F33.1 ; Paranoid personality disorder F60.0 and Illness anxiety disorder F45.21 [facility] [address] [address] 8028 Jan, Major depressive disorder, recurrent episode, moderate F33.1 ; Paranoid personality disorder F60.0 and Illness anxiety disorder F45.21 [facility] [address], [place] [address]- 7687 Dec, Illness anxiety disorder F45.21 ; Post-traumatic stress disorder, chronic F43.12 ; Paranoid personality disorder F60.0 ; High risk medication use Z79.899 and Personality disorder in adult F60.9 [facility] [address] [facility] [id number] [address] Dec, Major depressive disorder, recurrent episode, moderate F33.1 ; Paranoid personality disorder F60.0 and Illness anxiety disorder F45.21 [facility] [address] [facility] [id number] [address] 9676 Dec, Major depressive disorder, recurrent episode, moderate F33.1 ; Paranoid personality disorder F60.0 and Illness anxiety disorder F45.21 [facility] [address] [facility] [id number] [address] 3895 Dec, [facility] [id number] [place] [address] 12652- 7168 Nov, [facility] [id number] [address]- 7473 Nov, Major depressive disorder, recurrent episode, moderate F33.1 ; Paranoid personality disorder F60.0 and Illness anxiety disorder F45.21 [facility] [id number] [place] [address] 26509- 1270 Nov, [facility] [id number] [address]- 1676 Nov, [facility] [id number] [address]- 4242 Nov, Major depressive disorder, recurrent episode, moderate F33.1 ; Paranoid personality disorder F60.0 and Illness anxiety disorder F45.21 [facility] [id number] [address]- 7479 Nov, [facility] [id number] [place] [address] 33527- 4019 Nov, [facility] [id number] [address]- 4020 October, Illness anxiety disorder F45.21 ; Post-traumatic stress disorder, chronic F43.12 ; Paranoid personality disorder F60.0 ; High risk medication use Z79.899 and Personality disorder in adult F60.9 [place] [address], [place] [address]- 5401 October, Major depressive disorder, recurrent episode, moderate F33.1 ; Paranoid personality disorder F60.0 and Illness anxiety disorder F45.21 [place] [address], [place] [address]- 9544 October, Major depressive disorder, recurrent episode, moderate F33.1 ; Paranoid personality disorder F60.0 and Illness anxiety disorder F45.21 [place] [id number] [place] [address] 26031- 0917 Sep, Major depressive disorder, recurrent episode, moderate F33.1 ; Paranoid personality disorder F60.0 and Illness anxiety disorder F45.21 [place] [id number] [place] [address] 56565- 5897 Sep, Major depressive disorder, recurrent episode, moderate F33.1 and Illness anxiety disorder F45.21 [place] [facility] [id number] [place] [address] 31058- 3986 Aug, Major depressive disorder, recurrent episode, moderate F33.1 and Illness anxiety disorder F45.21 [place] [address], [place] [address]- 1179 28 Jul, 2017 Major depressive disorder, recurrent episode, moderate F33.1 and Illness anxiety disorder F45.21 [place] [id number] [place] [address] 06979- 6168 14 Jul, 2017 Major depressive disorder, recurrent episode, moderate F33.1 and Illness anxiety disorder F45.21 [place] [id number] [place] [address] 60682- 9064 Jun, Major depressive disorder, recurrent episode, moderate F33.1 and Illness anxiety disorder F45.21 [place] [id number] [place] [address] 93467- 6237 Jun, Major depressive disorder, recurrent episode, moderate F33.1 and Illness anxiety disorder F45.21 [facility] [address], [place] [address]- 1340 May, Major depressive disorder, recurrent episode, moderate F33.1 and Illness anxiety disorder F45.21 [facility] [address], [place] [address]- 6096 May, Major depressive disorder, recurrent episode, moderate F33.1 and Illness anxiety disorder F45.21 [facility] [id number] [place] [address] 93114- 4148 Apr, [place] [id number] [place] [address] 69525- 3075 Apr, Major depressive disorder, recurrent episode, moderate F33.1 and Illness anxiety disorder F45.21 [place] [place] [id number] [place] [address] 90678- 7946 Mar, Major depressive disorder, recurrent episode, moderate F33.1 and Illness anxiety disorder F45.21 [facility] [address], [place] [address]- 7443 Mar, Major depressive disorder, recurrent episode, moderate F33.1 [place] [address] [address]- 1045 Feb, Major depressive disorder, recurrent episode, moderate F33.1 [place] [address], [place] [address]- 5843 Jan, Major depressive disorder, recurrent episode, moderate F33.1 [facility] [id number], [place] [address]- 6602 Jan, Major depressive disorder, recurrent episode, moderate F33.1 [facility] [id number], [place] [address]- 5210 Dec, Major depressive disorder, recurrent episode, moderate F33.1 [facility] [address], [place] [address]- 0611 Dec, Major depressive disorder, recurrent episode, moderate F33.1 [facility] [address], [place] [address]- 2886 Jul, Major depressive disorder, recurrent episode, moderate F33.1 [facility] [id number], [place] [address]- 8766 Jul, Major depressive disorder, recurrent episode, moderate F33.1 [facility] [address], [place] [address]- 8166 Jun, Major depressive disorder, recurrent episode, moderate F33.1 [facility] [id number] [place] [address] 26406- 0716 May, Major depressive disorder, recurrent episode, moderate F33.1 [facility] [address], [place] [address]- 9696 Apr, Major depressive disorder, recurrent episode, moderate F33.1 [facility] [address], [place] [address]- 1059 Mar, [facility] [id number] [place] [address] 84978- 8756 Feb, Major depressive disorder, recurrent episode, moderate F33.1 [facility] [address], [place] [address]- 5826 Jan, Major depressive disorder, recurrent episode, moderate F33.1 [facility] [address], [place] [address]- 3916 Dec, Major depressive disorder, recurrent episode, moderate F33.1 [facility] [address], [place] [address]- 9846 Nov, Major depressive disorder, recurrent episode, moderate F33.1 [facility] [id number], [place] [address] 2546 Jul, Major depressive disorder, recurrent episode, moderate F33.1 [facility] [address], [place] [address]- 0614 Jan, Major depressive disorder, recurrent episode, moderate 296.32 [facility] [address], [place] [address]- 2716 Jan, Major depressive disorder, recurrent episode, moderate 296.32 [facility] [address], [place] [address]- 8056 Dec, Major depressive disorder, recurrent episode, moderate 296.32 [facility] [address], [place] [address]- 7780 Dec, Major depressive disorder, recurrent episode, moderate 296.32 [facility] [address], [place] [address]- 4720 Nov, Major depressive disorder, recurrent episode, moderate 296.32 [facility] [address], [place] [address]- 0091 October, Major depressive disorder, recurrent episode, moderate 296.32 [facility] [address], [place] [address]- 2899 Sep, [facility] [address], [place] [address]- 1743 Sep, [facility] [address], [place] [address]- 2646 30 Aug, 2014 [facility] [address], [place] [address]- 7054 Aug, [facility] [address], [place] [address]- 4744 16 Aug, 2014 [facility] [address], [place] [address]- 0556 Aug, [facility] [id number], [place] [address]- 5596 Aug, [facility] [address], [place] [address]- 7450 Jul, 2014 [facility] [place] [facility] [address] [id number] [place] [address]- 5506 Jul, 2014 [facility] [place] [facility] [address] [id number] [place] 5598 Jul, [facility] [place] [facility] [address] [id number] [place] [address]- 7477 Jul, [facility] [place] [facility] [address] [id number] [place] [address]- 0194 Jun, [facility] [place] [facility] [address] [id number] [place] [address]- 6804 Jun, [facility] [place] [facility] [address] [id number] [place] [address]- 7903 May, [facility] [place] [facility] [address] [id number], [place] [address]- 8209 May, [facility] [place] [facility] [address] [id number], [place] [address]- 7513 Apr, [facility] [place] [facility] [address] [id number], [place] [address]- 9758 Apr, [facility] [place] [facility] [address] [id number], [place] [address]- 4152 Mar, [facility] [place] [facility] [address] [id number], [place] [address]- 5504 Mar, [facility] [place] [facility] [address] [id number], [place] [address]- 2056 Mar, [facility] [place] [facility] [address] [id number], [place] [address]- 0247 Mar, [facility] [place] [facility] [address] [id number], [place] [address]- 2909 Mar, [facility] [place] [facility] [address] [id number], [place] [address]- 3907 Mar, [facility] [place] [facility] [address] [id number] [place] [address]- 8617 Mar, [facility] [place] [facility] [address] [id number] [place] [address]- 1102 Mar, [facility] [place] [facility] [address] [id number] [place] [address]- 7129 Feb, [facility] [place] [facility] [address] [id number] [place] [address]- 0733 Feb, [facility] [place] [facility] [address] [id number] [place] [address]- 8827 Feb, [facility] [place] [facility] [address] [id number] [place] [address]- 6016 Feb, [facility] [place] [facility] [address] [id number] [place] [address]- 4771 Jan, [facility] [place] [facility] [address] [id number] [place] [address]- 8740 Jan, [facility] [place] [facility] [address] [id number] [place] [address]- 9068 Dec, [facility] [place] [facility] [address] [id number] [place] [address]- 6363 Dec, [facility] [place] [facility] [address] [id number] [place] [address]- 5036 Nov, [facility] [place] [facility] [address] [id number] [place] [address]- 1056 Nov, [facility] [place] [facility] [address] [id number] [place] [address]- 9025 October, [facility] [place] [facility] [address] [id number] [place] [address]- 2817 October, [facility] [place] [facility] [address] [id number] [place] [address]- 5783 Sep, [facility] [place] [facility] [address] [id number] [place] 5689 Sep, [facility] [address], [place] [address]- 2765 Aug, [facility] [address], [place] [address]- 1889 Aug, [facility] [address], [place] [address]- 4509 Jul, [facility] [id number] [place] [address] 50231- 9316 Jul, [facility] [id number] [place] [address] 86189- 2479 Jun, [facility] [id number] [place] [address] 687262- 8655 Jun, [facility] [id number] [place] [address] 98603- 4345 Mar, [facility] [id number] [place] [address] 280955- 5543 Mar, [facility] [id number] [place] [address] 73211- 8885 Mar, [facility] [id number] [place] [address] 47803- 8072 Mar, [facility] [address], [place] [address]- 8780 Mar, [facility] [address], [place] [address]- 9320 May, IMMUNIZATIONS No Known Immunizations SOCIAL HISTORY Never Assessed REASON FOR VISIT LVM PLAN OF CARE VITAL SIGNS MEDICATIONS Unknown [...]
--- OUTSIDE RECORDS SUMMARY | 2018-08-03 05:37 | XMS REPORT ---
Author Author YON CONSTANTINO Organization [facility] Address [address] [place] [address] Care Team Providers Care Scientific Helper Name Role Phone YON CONSTANTINO Unavailable PROBLEMS Type Condition ICD9-CM Code XOF99-PL Code Onset Dates Condition Status SNOMED Code Problem Major depressive disorder, recurrent episode, moderate F33.1 Active 686836470 Problem Post-traumatic stress disorder, chronic F43.12 Active 916918922 Problem High risk medication use Z79.899 Active 135409880091712 Problem Illness anxiety disorder F45.21 Active 27804569463843804 Problem Acute pharyngitis 462 Active 204070604 Problem Personality disorder in adult F60.9 Active 69517790 Problem Paranoid personality disorder F60.0 Active [id number] ALLERGIES No Information ENCOUNTERS Encounter Location Date Diagnosis [facility] [id number] [place] [address] 65819- 8707 28 Apr, 2018 [facility] [id number] [place] [address] 06909- 9813 Apr, [facility] [id number] [place] [address] 63417- 1816 31 Mar, 2018 [facility] [id number] [place] [address] 23338- 0814 Mar, [facility] [id number] [place] [address] 44273- 7472 Feb, Post-traumatic stress disorder, chronic F43.12 and Paranoid personality disorder F60.0 [facility] [address] [address] Feb, 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 ; Post-traumatic stress disorder, chronic F43.12 ; Paranoid personality disorder F60.0 ; High risk medication use Z79.899 and Personality disorder in adult F60.9 [facility] [address] [address] 9[address] 19 Feb, 2018 [facility] [id number] [place] [address] 02229- 9941 17 Feb, 2018 Major depressive disorder, recurrent episode, moderate F33.1 ; Paranoid personality disorder F60.0 and Illness anxiety disorder 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 [facility] [address] [address] 58[address] 14 Feb, 2018 [facility] [id number] [place] [address] 90707- 8373 04 Feb, 2018 [facility] [id number] [place] [address] 56099- 9144 Jan, Major depressive disorder, recurrent episode, moderate F33.1 ; Paranoid personality disorder F60.0 and Illness anxiety disorder 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 [facility] [address] [address] 1696 Jan, [facility] [id number] [place] [address] 13858- 5837 Jan, [facility] [address] [place] [address] 89218- 3448 Jan, Major depressive disorder, recurrent episode, moderate F33.1 ; Paranoid personality disorder F60.0 and Illness anxiety disorder 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 [facility] [id number] [place] [address] 67107- 7383 Nov, [facility] [id number] [address]- 7848 Nov, [facility] [id number] [address]- 6851 Nov, Major depressive disorder, recurrent episode, moderate F33.1 ; Paranoid personality disorder F60.0 and Illness anxiety disorder 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 [facility] [id number] [address]- 0978 Nov, [facility] [id number] [place] [address] 15169- 0911 Nov, [facility] [id number] [address] 8317 October, 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 ; Post-traumatic stress disorder, chronic F43.12 ; Paranoid personality disorder F60.0 ; High risk medication use Z79.899 and Personality disorder in adult F60.9 [place] [address] [address] 6[address] October, Major depressive disorder, recurrent episode, moderate F33.1 ; Paranoid personality disorder F60.0 and Illness anxiety disorder 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 [facility] [address] [address]- 0305 October, Major depressive disorder, recurrent episode, moderate F33.1 ; Paranoid personality disorder F60.0 and Illness anxiety disorder F45.21 [facility] [address] [place] [address] 44817- 3049 Sep, Major depressive disorder, recurrent episode, moderate F33.1 ; Paranoid personality disorder F60.0 and Illness anxiety disorder F45.21 [facility] [address] [place] [address] 17839- 1997 Sep, Major depressive disorder, recurrent episode, moderate F33.1 and Illness anxiety disorder F45.21 [place] [address] [place] [address] 41413- 9328 Aug, Major depressive disorder, recurrent episode, moderate F33.1 and Illness anxiety disorder F45.21 [facility] [address] [address]- 7455 28 Jul, 2017 Major depressive disorder, recurrent episode, moderate F33.1 and Illness anxiety disorder F45.21 [place] [facility] [address] [place] [address] 05867- 7486 14 Jul, 2017 Major depressive disorder, recurrent episode, moderate F33.1 and Illness anxiety disorder F45.21 [facility] [address] [place] [address] 93149- 1984 Jun, Major depressive disorder, recurrent episode, moderate F33.1 and Illness anxiety disorder F45.21 [place] [address] [place] [address] 00555- 9272 Jun, Major depressive disorder, recurrent episode, moderate F33.1 and Illness anxiety disorder F45.21 [facility] [address] [address]- 3810 May, Major depressive disorder, recurrent episode, moderate F33.1 and Illness anxiety disorder F45.21 [facility] [address] [address]- 7856 May, Major depressive disorder, recurrent episode, moderate F33.1 and Illness anxiety disorder F45.21 [facility] [id number] [place] [address] 58064- 4219 Apr, [facility] [id number] [place] [address] 17539- 8872 Apr, Major depressive disorder, recurrent episode, moderate F33.1 and Illness anxiety disorder F45.21 [facility] [id number] [place] [address] 18014- 1282 Mar, Major depressive disorder, recurrent episode, moderate F33.1 and Illness anxiety disorder F45.21 [facility] [address] [address]- 1136 Mar, Major depressive disorder, recurrent episode, moderate F33.1 [place] [facility] [address] [address]- 6883 Feb, Major depressive disorder, recurrent episode, moderate F33.1 [place] [facility] [address] [address]- 1251 Jan, Major depressive disorder, recurrent episode, moderate F33.1 [facility] [id number] [address]- 5141 Jan, Major depressive disorder, recurrent episode, moderate F33.1 [facility] [id number] [address]- 2801 Dec, Major depressive disorder, recurrent episode, moderate F33.1 [facility] [address] [address]- 8563 Dec, Major depressive disorder, recurrent episode, moderate F33.1 [facility] [address] [address]- 3346 Jul, Major depressive disorder, recurrent episode, moderate F33.1 [facility] [id number] [address]- 0236 Jul, Major depressive disorder, recurrent episode, moderate F33.1 [facility] [address] [address]- 5366 Jun, Major depressive disorder, recurrent episode, moderate F33.1 [facility] [id number] [place] [address] 78128- 9556 May, Major depressive disorder, recurrent episode, moderate F33.1 [facility] [address] [address]- 0816 Apr, Major depressive disorder, recurrent episode, moderate F33.1 [facility] [address] [address]- 5138 Mar, [facility] [address] [place] [address] 61875- 0996 Feb, Major depressive disorder, recurrent episode, moderate F33.1 [facility] [address] [address]- 2726 Jan, Major depressive disorder, recurrent episode, moderate F33.1 [facility] [address] [address]- 7406 Dec, Major depressive disorder, recurrent episode, moderate F33.1 [facility] [address] [address]- 5206 Nov, Major depressive disorder, recurrent episode, moderate F33.1 [facility] [id number] [address] 2546 Jul, Major depressive disorder, recurrent episode, moderate F33.1 [facility] [address] [address]- 6399 Jan, Major depressive disorder, recurrent episode, moderate 296.32 [facility] [address] [address]- 8856 Jan, Major depressive disorder, recurrent episode, moderate 296.32 [facility] [address] [address]- 1586 Dec, Major depressive disorder, recurrent episode, moderate 296.32 [facility] [address] [address]- 7667 Dec, Major depressive disorder, recurrent episode, moderate 296.32 [facility] [address] [address]- 7014 Nov, Major depressive disorder, recurrent episode, moderate 296.32 [facility] [address] [address]- 2913 October, Major depressive disorder, recurrent episode, moderate 296.32 [facility] [address] [address]- 0804 Sep, [facility] [address] [address]- 7345 Sep, [facility] [address] [address]- 4727 30 Aug, 2014 [facility] [address] [address]- 1660 Aug, [facility] [address] [address]- 4034 16 Aug, 2014 [facility] [address], [place] [address]- 8646 Aug, [facility] [id number] [address]- 0906 Aug, [facility] [address] [address]- 5595 Jul, 2014 [facility] [place] [facility] [address] [id number] [place] [address]- 2750 Jul, 2014 [facility] [place] [facility] [address] [id number] [place] [address]10 Jul, [facility] [place] [facility] [address] [id number] [place] [address]- 3901 Jul, [facility] [place] [facility] [address] [id number] [place] [address]- 8878 Jun, [facility] [place] [facility] [address] [id number] [place] [address]- 7085 Jun, [facility] [place] [facility] [address] [id number] [place] [address]- 3867 May, [facility] [place] [facility] [address] [id number] [address]- 9438 May, [facility] [place] [facility] [address] [id number] [address]- 5745 Apr, [facility] [place] [facility] [address] [id number] [address]- 7386 Apr, [facility] [place] [facility] [address] [id number] [address]- 2971 Mar, [facility] [place] [facility] [address] [id number] [address]- 9068 Mar, [facility] [place] [facility] [address] [id number] [address]- 2511 Mar, [facility] [place] [facility] [address] [id number] [address]- 9089 Mar, [facility] [place] [facility] [address] [id number] [address]- 0600 Mar, [facility] [place] [facility] [address] [id number] [address]- 0024 Mar, [facility] [place] [facility] [address] [id number] [place] [address]- 1938 Mar, [facility] [place] [facility] [address] [id number] [place] [address]- 7224 Mar, [facility] [place] [facility] [address] [id number] [place] [address]- 9515 Feb, [facility] [place] [facility] [address] [id number] [place] [address]- 4951 Feb, [facility] [place] [facility] [address] [id number] [place] [address]- 8187 Feb, [facility] [place] [facility] [address] [id number] [place] [address]- 2506 Feb, [facility] [place] [facility] [address] [id number] [place] [address]- 2452 Jan, [facility] [place] [facility] [address] [id number] [place] [address]- 6274 Jan, [facility] [place] [facility] [address] [id number] [place] [address]- 6535 Dec, [facility] [place] [facility] [address] [id number] [place] [address]- 6222 Dec, [facility] [place] [facility] [address] [id number] [place] [address]- 1245 Nov, [facility] [place] [facility] [address] [id number] [place] [address]- 3131 Nov, [facility] [place] [facility] [address] [id number] [place] [address]- 6534 October, [facility] [place] [facility] [address] [id number] [place] [address]- 3541 October, [facility] [place] [facility] [address] [id number] [place] [address]- 9307 Sep, [facility] [place] [facility] [address] [id number] [place] 2118 Sep, [facility] [address] [address]- 2171 Aug, [facility] [address] [address]- 4945 Aug, [facility] [address] [address]- 1395 Jul, [facility] [id number] [place] [address] 91852- 2998 Jul, [facility] [address] [place] [address] 89062- 9763 Jun, [facility] [id number] [place] [address] 63616- 3561 Jun, [facility] [id number] [place] [address] 71677- 5974 Mar, [facility] [id number] [place] [address] 074032- 2827 Mar, [facility] [id number] [place] [address] 18260- 1180 Mar, [facility] [address] [place] [address] 64713- 4774 Mar, [facility] [address] [address]- 5859 Mar, [facility] [address] [address]- 8952 May, IMMUNIZATIONS No Known Immunizations SOCIAL HISTORY [...]
--- OUTSIDE RECORDS SUMMARY | 2018-08-03 05:37 | XMS REPORT ---
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 Active 17630271055510580 Problem Acute pharyngitis 462 Active 354846572 Problem Personality disorder in adult F60.9 Active 77423641 Problem Paranoid personality disorder F60.0 Active 55130099 ALLERGIES No Information ENCOUNTERS Encounter Location Date Diagnosis [facility] [id number] [place] [address] 51336- 1899 28 Apr, 2018 [facility] [id number] [place] [address] 46406- 8385 14 Apr, 2018 [facility] [address] [place] [address] 74729- 9975 31 Mar, 2018 [facility] [address] [place] [address] 62817- 5210 Mar, [facility] [address] [place] [address] 85321- 5422 Feb, Post-traumatic stress disorder, chronic F43.12 and Paranoid personality disorder F60.0 [facility] [address], [place] [address] Feb, 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 ; Post-traumatic stress disorder, chronic F43.12 ; Paranoid personality disorder F60.0 ; High risk medication use Z79.899 and Personality disorder in adult F60.9 [facility] [address], [place] [address] 1261 19 Feb, 2018 [facility] [id number] [place] [address] 80267- 0470 17 Feb, 2018 Major depressive disorder, recurrent episode, moderate F33.1 ; Paranoid personality disorder F60.0 and Illness anxiety disorder F45.21 [facility] [address] [address] 5705 14 Feb, 2018 [facility] [id number] [place] [address] 53230- 1066 04 Feb, 2018 [facility] [id number] [place] [address] 92361- 9130 Jan, Major depressive disorder, recurrent episode, moderate F33.1 ; Paranoid personality disorder F60.0 and Illness anxiety disorder 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 [facility] [address] [address] 48[address] Jan, [facility] [id number] [place] [address] 51806- 4197 Jan, [facility] [address] [place] [address] 35916- 7705 Jan, Major depressive disorder, recurrent episode, moderate F33.1 ; Paranoid personality disorder F60.0 and Illness anxiety disorder 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 [facility] [address], [place] [address]- 6[address] Jan, Major depressive disorder, recurrent episode, moderate F33.1 ; Paranoid personality disorder F60.0 and Illness anxiety disorder F45.21 [facility] [address], [place] [address] 3680 Dec, Illness anxiety disorder 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 ; Post-traumatic stress disorder, chronic F43.12 ; Paranoid personality disorder F60.0 ; High risk medication use Z79.899 and Personality disorder in adult F60.9 [facility] [address] [facility] [id number] [address] Dec, Major depressive disorder, recurrent episode, moderate F33.1 ; Paranoid personality disorder F60.0 and 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 [facility] [address] [facility] [id number] [address] Dec, Major depressive disorder, recurrent episode, moderate F33.1 ; Paranoid personality disorder F60.0 and Illness anxiety disorder F45.21 [facility] [address] [facility] [id number] [address] 3[address] Dec, [facility] [id number] [place] [address] 03185- 0841 Nov, [facility] [id number] [address]- 0736 Nov, Major depressive disorder, recurrent episode, moderate F33.1 ; Paranoid personality disorder F60.0 and Illness anxiety disorder F45.21 [facility] [id number] [place] [address] 58289- 2503 Nov, [facility] [id number] [address]- 0640 Nov, [facility] [id number] [address]- 8985 Nov, Major depressive disorder, recurrent episode, moderate F33.1 ; Paranoid personality disorder F60.0 and Illness anxiety disorder F45.21 [facility] [id number] [address] 1982 Nov, [facility] [id number] [place] [address] 77020- 9221 Nov, [facility] [id number] [address]- 7405 October, 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 ; Post-traumatic stress disorder, chronic F43.12 ; Paranoid personality disorder F60.0 ; High risk medication use Z79.899 and Personality disorder in adult F60.9 [place] [facility] [address], [place] [address]- 8741 October, Major depressive disorder, recurrent episode, moderate F33.1 ; Paranoid personality disorder F60.0 and Illness anxiety disorder 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 [place] [facility] [address], [place] [address]- 6548 October, Major depressive disorder, recurrent episode, moderate F33.1 ; Paranoid personality disorder F60.0 and Illness anxiety disorder F45.21 [place] [address] [place] [address] 04919- 3094 Sep, Major depressive disorder, recurrent episode, moderate F33.1 ; Paranoid personality disorder F60.0 and Illness anxiety disorder F45.21 [place] [address] [place] [address] 26797- 9768 Sep, Major depressive disorder, recurrent episode, moderate F33.1 and Illness anxiety disorder F45.21 [place] [address] [place] [address] 99939- 8176 Aug, Major depressive disorder, recurrent episode, moderate F33.1 and Illness anxiety disorder F45.21 [place] [address], [place] [address]- 6188 28 Jul, 2017 Major depressive disorder, recurrent episode, moderate F33.1 and Illness anxiety disorder F45.21 [place] [address] [place] [address] 34415- 2632 14 Jul, 2017 Major depressive disorder, recurrent episode, moderate F33.1 and Illness anxiety disorder F45.21 [place] [address] [place] [address] 49950- 1645 Jun, Major depressive disorder, recurrent episode, moderate F33.1 and Illness anxiety disorder F45.21 [place] [address] [place] [address] 16974- 8290 Jun, Major depressive disorder, recurrent episode, moderate F33.1 and Illness anxiety disorder F45.21 [facility] [address], [place] [address] 2005 May, Major depressive disorder, recurrent episode, moderate F33.1 and Illness anxiety disorder F45.21 [facility] [address] [address]- 1796 May, Major depressive disorder, recurrent episode, moderate F33.1 and Illness anxiety disorder F45.21 [facility] [id number] [place] [address] 01157- 2690 Apr, [place] [id number] [place] [address] 36895- 4287 Apr, Major depressive disorder, recurrent episode, moderate F33.1 and Illness anxiety disorder F45.21 [place] [facility] [id number] [place] [address] 30396- 4988 Mar, Major depressive disorder, recurrent episode, moderate F33.1 and Illness anxiety disorder F45.21 [facility] [address] [address]- 7548 Mar, Major depressive disorder, recurrent episode, moderate F33.1 [place] [address] [address]- 5949 Feb, Major depressive disorder, recurrent episode, moderate F33.1 [place] [address], [place] [address]- 3843 Jan, Major depressive disorder, recurrent episode, moderate F33.1 [facility] [id number] [address]- 6491 Jan, Major depressive disorder, recurrent episode, moderate F33.1 [facility] [id number] [address]- 0722 Dec, Major depressive disorder, recurrent episode, moderate F33.1 [facility] [address], [place] [address]- 5900 Dec, Major depressive disorder, recurrent episode, moderate F33.1 [facility] [address], [place] [address]- 0136 Jul, Major depressive disorder, recurrent episode, moderate F33.1 [facility] [id number] [address]- 6776 Jul, Major depressive disorder, recurrent episode, moderate F33.1 [facility] [address], [place] [address]- 7006 Jun, Major depressive disorder, recurrent episode, moderate F33.1 [facility] [address] [place] [address] 31682- 6516 May, Major depressive disorder, recurrent episode, moderate F33.1 [facility] [address], [place] [address]- 8566 Apr, Major depressive disorder, recurrent episode, moderate F33.1 [facility] [address] [address]- 4433 Mar, [facility] [address] [place] [address] 84027- 9996 Feb, Major depressive disorder, recurrent episode, moderate F33.1 [facility] [address], [place] [address]- 9676 Jan, Major depressive disorder, recurrent episode, moderate F33.1 [facility] [address], [place] [address]- 0176 Dec, Major depressive disorder, recurrent episode, moderate F33.1 [facility] [address], [place] [address]- 8796 Nov, Major depressive disorder, recurrent episode, moderate F33.1 [facility] [id number], [place] [address] 2546 Jul, Major depressive disorder, recurrent episode, moderate F33.1 [facility] [address] [address]- 0633 Jan, Major depressive disorder, recurrent episode, moderate 296.32 [facility] [address], [place] [address]- 5306 Jan, Major depressive disorder, recurrent episode, moderate 296.32 [facility] [address], [place] [address]- 4276 Dec, Major depressive disorder, recurrent episode, moderate 296.32 [facility] [address], [place] [address]- 1340 Dec, Major depressive disorder, recurrent episode, moderate 296.32 [facility] [address], [place] [address]- 8800 Nov, Major depressive disorder, recurrent episode, moderate 296.32 [facility] [address], [place] [address]- 3908 October, Major depressive disorder, recurrent episode, moderate 296.32 [facility] [address], [place] [address]- 7475 Sep, [facility] [address], [place] [address]- 9185 Sep, [facility] [address], [place] [address]- 3725 30 Aug, 2014 [facility] [address], [place] [address]- 6510 Aug, [facility] [address], [place] [address]- 7109 16 Aug, 2014 [facility] [address], [place] [address]- 6886 Aug, [facility] [id number], [place] [address]- 6506 Aug, [facility] [address], [place] [address]- 9261 Jul, 2014 [facility] [place] [facility] [address] [id number] [place] [address]- 4531 Jul, 2014 [facility] [place] [facility] [address] [id number] [place] [address]183 Jul, [facility] [place] [facility] [address] [id number] [place] [address]- 6875 Jul, [facility] [place] [facility] [address] [id number] [place] [address]- 5879 Jun, [facility] [place] [facility] [address] [id number] [place] [address]- 3379 Jun, [facility] [place] [facility] [address] [id number] [place] [address]- 1602 May, [facility] [place] [facility] [address] [id number] [address]- 3504 May, [facility] [place] [facility] [address] [id number], [place] [address]- 7452 Apr, [facility] [place] [facility] [address] [id number], [place] [address]- 8026 Apr, [facility] [place] [facility] [address] [id number], [place] [address]- 8468 Mar, [facility] [place] [facility] [address] [id number], [place] [address]- 6774 Mar, [facility] [place] [facility] [address] [id number], [place] [address]- 1042 Mar, [facility] [place] [facility] [address] [id number], [place] [address]- 4310 Mar, [facility] [place] [facility] [address] [id number], [place] [address]- 7946 Mar, [facility] [place] [facility] [address] [id number], [place] [address]- 7780 Mar, [facility] [place] [facility] [address] [id number] [place] [address]- 2982 Mar, [facility] [place] [facility] [address] [id number] [place] [address]- 3003 Mar, [facility] [place] [facility] [address] [id number] [place] [address]- 6316 Feb, [facility] [place] [facility] [address] [id number] [place] [address]- 7879 Feb, [facility] [place] [facility] [address] [id number] [place] [address]- 2735 Feb, [facility] [place] [facility] [address] [id number] [place] [address]- 7256 Feb, [facility] [place] [facility] [address] [id number] [place] [address]- 1143 Jan, [facility] [place] [facility] [address] [id number] [place] [address]- 9812 Jan, [facility] [place] [facility] [address] [id number] [place] [address]- 2126 Dec, [facility] [place] [facility] [address] [id number] [place] [address]- 2093 Dec, [facility] [place] [facility] [address] [id number] [place] [address]- 4556 Nov, [facility] [place] [facility] [address] [id number] [place] [address]- 7923 Nov, [facility] [place] [facility] [address] [id number] [place] [address]- 9260 October, [facility] [place] [facility] [address] [id number] [place] [address]- 7737 October, [facility] [place] [facility] [address] [id number] [place] [address]- 0038 Sep, [facility] [place] [facility] [address] [id number] [place] 0472 Sep, [facility] [address], [place] [address]- 3408 Aug, [facility] [address], [place] [address]- 0234 Aug, [facility] [address], [place] [address]- 6983 Jul, [facility] [id number] [place] [address] 55678- 1614 Jul, [facility] [address] [place] [address] 096977- 7059 Jun, [facility] [id number] [place] [address] 147562- 9123 Jun, [facility] [address], [place] [address]- 3670 Mar, [facility] [id number] [place] [address] 356155- 0313 Mar, [facility] [address] [place] [address] 70083- 0449 Mar, [facility] [address], [place] [address]- 6127 Mar, [facility] [address], [place] [address]- 7467 Mar, [facility] [address] 3968 May, IMMUNIZATIONS No Known Immunizations SOCIAL HISTORY Never Assessed REASON FOR VISIT BH f/u PLAN OF CARE Activity Details Follow Up 2 Weeks Reason: VITAL SIGNS MEDICATIONS Unknown Medications RESULTS No Results PROCEDURES Procedure Date Ordered Result Body Site [facility] VISIT MENTAL HEALTH ESTAB PT Feb 03, 2018 Psychotherapy, patient &/family, 45 minutes, established patient Feb 03, 2018 INSTRUCTIONS MEDICATIONS ADMINISTERED No Known Medications [...]
--- OUTSIDE RECORDS SUMMARY | 2018-08-03 05:38 | XMS REPORT ---
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 Active [id number] Problem Acute pharyngitis 462 Active 829503260 Problem Personality disorder in adult F60.9 Active 88315991 Problem Paranoid personality disorder F60.0 Active [id number] ALLERGIES No Information ENCOUNTERS Encounter Location Date Diagnosis [facility] [id number] [place] [address] 19665- 7898 Mar, [facility] [id number] [place] [address] 78977- 8102 Mar, [facility] [address] [address] 1419 Feb, [facility] [id number] [place] [address] 73843- 4214 17 Feb, 2018 [facility] [address] [place] [address] 80735- 8693 14 Feb, 2018 [facility] [id number] [place] [address] 53036- 4612 04 Feb, 2018 [facility] [address] [place] [address] 36415- 4290 Jan, Major depressive disorder, recurrent episode, moderate F33.1 ; Paranoid personality disorder F60.0 and Illness anxiety disorder 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 [facility] [address] [address] 8[address] Jan, [facility] [id number] [place] [address] 18618- 1326 Jan, [facility] [address] [address] 0942 Jan, Major depressive disorder, recurrent episode, moderate F33.1 ; Paranoid personality disorder F60.0 and Illness anxiety disorder 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 [facility] [address] [address] 9453 Jan, Major depressive disorder, recurrent episode, moderate F33.1 ; Paranoid personality disorder F60.0 and Illness anxiety disorder 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 [place] [address] [address] Dec, Illness anxiety disorder 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 ; Post-traumatic stress disorder, chronic F43.12 ; Paranoid personality disorder F60.0 ; High risk medication use Z79.899 and Personality disorder in adult F60.9 [place] [address] [place] [address] 95895- 4946 Dec, Major depressive disorder, recurrent episode, moderate F33.1 ; Paranoid personality disorder F60.0 and Illness anxiety disorder 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 [facility] [address] [address] 9894 Dec, Major depressive disorder, recurrent episode, moderate F33.1 ; Paranoid personality disorder F60.0 and Illness anxiety disorder 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 [facility] [address] [address] 6380 Dec, [facility] [address] [address]- 9223 Nov, [facility] [address] [address]- 1208 Nov, Major depressive disorder, recurrent episode, moderate F33.1 ; Paranoid personality disorder F60.0 and Illness anxiety disorder 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 [place] [id number] [place] [address] 30274- 9723 Nov, [facility] [id number] [place] [address] 93928- 7134 Nov, [facility] [id number] [place] [address] 82578- 3985 Nov, Major depressive disorder, recurrent episode, moderate F33.1 ; Paranoid personality disorder F60.0 and Illness anxiety disorder 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 [place] [id number] [place] [address] 86164- 2506 Nov, [place] [id number] [place] [address] 58778- 1755 Nov, [place] [id number] [place] [address] 86355- 3549 October, 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 ; Post-traumatic stress disorder, chronic F43.12 ; Paranoid personality disorder F60.0 ; High risk medication use Z79.899 and Personality disorder in adult F60.9 [place] [address] [place] [address] 10265- 1148 October, Major depressive disorder, recurrent episode, moderate F33.1 ; Paranoid personality disorder F60.0 and Illness anxiety disorder 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 [place] [address] [place] [address] 70400- 2819 October, Major depressive disorder, recurrent episode, moderate F33.1 ; Paranoid personality disorder F60.0 and Illness anxiety disorder F45.21 [place] [address] [place] [address] 13615- 3843 Sep, Major depressive disorder, recurrent episode, moderate F33.1 ; Paranoid personality disorder F60.0 and Illness anxiety disorder F45.21 [place] [address] [place] [address] 88561- 8339 Sep, Major depressive disorder, recurrent episode, moderate F33.1 and Illness anxiety disorder F45.21 [place] [id number] [place] [address] 92765- 1234 Aug, Major depressive disorder, recurrent episode, moderate F33.1 and Illness anxiety disorder F45.21 [place] [address] [place] [address] 17949- 7601 Jul, Major depressive disorder, recurrent episode, moderate F33.1 and Illness anxiety disorder F45.21 [place] [address] [place] [address] 00108- 8966 Jul, Major depressive disorder, recurrent episode, moderate F33.1 and Illness anxiety disorder F45.21 [place] [id number] [place] [address] 08001- 7522 Jun, Major depressive disorder, recurrent episode, moderate F33.1 and Illness anxiety disorder F45.21 [place] [address] [place] [address] 09344- 3043 Jun, Major depressive disorder, recurrent episode, moderate F33.1 and Illness anxiety disorder F45.21 [place] [address] [place] [address] 95888- 1413 May, Major depressive disorder, recurrent episode, moderate F33.1 and Illness anxiety disorder F45.21 [place] [address] [place] [address] 36187- 3221 May, Major depressive disorder, recurrent episode, moderate F33.1 and Illness anxiety disorder F45.21 [place] [address] [place] [address] 82176- 5063 Apr, [place] [id number] [place] [address] 00853- 0544 Apr, Major depressive disorder, recurrent episode, moderate F33.1 and Illness anxiety disorder F45.21 [place] [id number] [place] [address] 15893- 0255 Mar, Major depressive disorder, recurrent episode, moderate F33.1 and Illness anxiety disorder F45.21 [facility] [address] [place] [address] 982980- 2296 Mar, Major depressive disorder, recurrent episode, moderate F33.1 [facility] [address] 6546 Feb, Major depressive disorder, recurrent episode, moderate F33.1 [facility] [id number] [address]- 7159 Jan, Major depressive disorder, recurrent episode, moderate F33.1 [facility] [id number] [place] [address] 65471- 6859 Jan, Major depressive disorder, recurrent episode, moderate F33.1 [facility] [address] [address]- 6981 Dec, Major depressive disorder, recurrent episode, moderate F33.1 [facility] [address] [address]- 1358 Dec, Major depressive disorder, recurrent episode, moderate F33.1 [facility] [address] [address]- 1561 Jul, Major depressive disorder, recurrent episode, moderate F33.1 [facility] [address] [address]- 0856 Jul, Major depressive disorder, recurrent episode, moderate F33.1 [facility] [address] [address]- 6867 Jun, Major depressive disorder, recurrent episode, moderate F33.1 [facility] [address] 7136 May, Major depressive disorder, recurrent episode, moderate F33.1 [facility] [address] [address]- 2050 Apr, Major depressive disorder, recurrent episode, moderate F33.1 [facility] [address] [address]- 2446 Mar, [facility] [address] [address]- 0236 Feb, Major depressive disorder, recurrent episode, moderate F33.1 [facility] [address] [address]- 6513 Jan, Major depressive disorder, recurrent episode, moderate F33.1 [facility] [address] [address]- 2887 Dec, Major depressive disorder, recurrent episode, moderate F33.1 [facility] [address] [address]- 8206 Nov, Major depressive disorder, recurrent episode, moderate F33.1 [facility] [address] [address]- 2630 Jul, Major depressive disorder, recurrent episode, moderate F33.1 [facility] [address] 3790 Jan, Major depressive disorder, recurrent episode, moderate 296.32 [facility] [address] [address]- 8708 Jan, Major depressive disorder, recurrent episode, moderate 296.32 [facility] [address]- 3915 Dec, Major depressive disorder, recurrent episode, moderate 296.32 [facility] [address]- 4345 Dec, Major depressive disorder, recurrent episode, moderate 296.32 [facility] [address] 2917 Nov, Major depressive disorder, recurrent episode, moderate 296.32 [facility] [id number] [address]- 1500 October, Major depressive disorder, recurrent episode, moderate 296.32 [facility] [address] [place] [address]- 6182 14 Sep, 2014 [facility] [place] [facility] [address] [place] [address]- 4412 Sep, [facility] [id number] [place] [address], [place] [address]- 8875 30 Aug, 2014 [facility] [address] [facility] [id number] [place] [address]- 9469 Aug, [facility] [id number] [place] [address], [place] [address]- 5834 Aug, [facility] [address] 1314 Aug, [facility] [id number] [place] [address], [place] [address]- 3191 Aug, [facility] [address] [place] [address]- 2813 Jul, [facility] [address] [address]- 3032 Jul, [facility] [address] [address]- 1141 Jul, [facility] [address] [address]- 7984 Jul, [facility] [address] 8345 Jun, [facility] [address] 9486 Jun, [facility] [place] [facility] [address] [address]- 5990 May, [facility] [address] [address]- 5342 May, [facility] [place] [facility] [address] [id number] [place] [address]- 1375 Apr, [facility] [place] [facility] [address] [id number] [place] 1425 Apr, [facility] [place] [facility] [address] [id number] [place] [address]- 2883 Mar, [facility] [place] [facility] [address] [id number] [place] [address]- 9658 Mar, [facility] [place] [facility] [address] [id number] [place] [address]- 3838 Mar, [facility] [place] [facility] [address] [id number] [place] [address]- 4503 Mar, [facility] [place] [facility] [address] [id number] [place] [address]- 6296 Mar, [facility] [place] [facility] [address] [id number] [place] [address]- 2736 Mar, [facility] [place] [facility] [address] [id number] [place] [address]- 5255 Mar, [facility] [place] [facility] [address] [id number] [place] [address]- 0488 Mar, [facility] [place] [facility] [address] [id number] [address]- 3514 Feb, [facility] [place] [facility] [address] [id number] [place] [address]- 0293 Feb, [facility] [place] [facility] [address] [id number] [place] [address]- 7353 Feb, [facility] [place] [facility] [address] [id number] [place] [address]- 3557 Feb, [facility] [place] [facility] [address] [id number] [place] [address]- 6923 Jan, [facility] [place] [facility] [address] [id number] [place] [address]- 9281 Jan, [facility] [place] [facility] [address] [id number] [place] [address]- 6997 Dec, [facility] [place] [facility] [address] [id number] [place] [address]- 1738 Dec, [facility] [place] [facility] [address] [id number] [place] [address]- 2000 Nov, [facility] [place] [facility] [address] [id number] [place] [address]- 5526 Nov, [facility] [place] [facility] [address] [id number] [place] [address]- 7196 October, [facility] [place] [facility] [address] [id number] [place] [address]- 0260 October, [facility] [place] [facility] [address] [id number] [place] [address]- 1053 Sep, [facility] [place] [facility] [address] [id number] [place] [address]- 3493 Sep, [facility] [place] [facility] [address] [id number] [place] [address]- 3518 Aug, [facility] [place] [facility] [address] [id number] [place] [address]- 1139 Aug, [facility] [place] [facility] [address] [id number] [place] [address]- 1387 Jul, [facility] [place] [facility] [address] [id number] [place] [address]- 5706 Jul, [facility] [place] [facility] [address] [id number] [place] [address]- 2839 Jun, [facility] [place] [facility] [address] [id number] [place] [address]- 4996 Jun, [facility] [place] [facility] [address] [id number] [place] [address]- 1807 Mar, [facility] [address] [facility] [id number] [address]- 4966 Mar, [facility] [address] [facility] [id number] [address] 2546 Mar, [facility] [address] [facility] [id number] [address] 2544 Mar, [facility] [address] [facility] [id number] [address] 2540 Mar, [facility] [address] [facility] [id number] [address]- 3316 May, IMMUNIZATIONS No Known Immunizations SOCIAL HISTORY Never Assessed REASON FOR VISIT f/u PLAN OF CARE Activity Details Follow Up 2 Weeks Reason: VITAL SIGNS MEDICATIONS Unknown Medications RESULTS No Results PROCEDURES Procedure Date Ordered Result Body Site [facility] VISIT MENTAL HEALTH ESTAB PT Jan 06, 2018 Psychotherapy, patient &/family, 30 minutes, established patient Jan 06, 2018 INSTRUCTIONS MEDICATIONS ADMINISTERED No Known [...]
--- OUTSIDE RECORDS SUMMARY | 2018-08-03 05:38 | XMS REPORT ---
Author Author HAMMAD RUIZ [facility] [address] Address [address] [place] [address] Care Team Providers Care Investigator Internal Affairs Name Role Phone JOSEPH, HAMMAD Unavailable PROBLEMS Type Condition ICD9-CM Code UEI68-UZ Code Onset Dates Condition Status SNOMED Code Problem Major depressive disorder, recurrent episode, moderate F33.1 Active 752750205 Problem Post-traumatic stress disorder, chronic F43.12 Active 471454371 Problem High risk medication use Z79.899 Active 854996709710219 Problem Illness anxiety disorder F45.21 Active [id number] Problem Acute pharyngitis 462 Active 788630561 Problem Personality disorder in adult F60.9 Active 73446191 Problem Paranoid personality disorder F60.0 Active [id number] ALLERGIES No Information ENCOUNTERS Encounter Location Date Diagnosis [facility] [address], [place] [address] Apr, [facility] [id number] [place] [address]5912- 9358 Mar, [facility] [address], [place] [address] Mar, [facility] [id number] [place] [address] 72440- 9538 Feb, [facility] [id number] [place] [address] 61303- 8930 Feb, [facility] [id number] [place] [address] 39463- 6830 Feb, Major depressive disorder, recurrent episode, moderate F33.1 ; Paranoid personality disorder F60.0 and Illness anxiety disorder F45.21 [facility] [id number] [place] [address] 20342- 7910 14 Feb, 2018 [facility] [address], [place] [address] Feb, [facility] [address], [place] [address] Jan, Major depressive disorder, recurrent episode, moderate F33.1 ; Paranoid personality disorder F60.0 and Illness anxiety disorder F45.21 [place] [address], [place] [address] Jan, [facility] [address], [place] [address] Jan, [place] [address], [place] [address] Jan, Major depressive disorder, recurrent episode, moderate F33.1 ; Paranoid personality disorder F60.0 and Illness anxiety disorder F45.21 [place] [address], [place] [address] Jan, Major depressive disorder, recurrent episode, moderate F33.1 ; Paranoid personality disorder F60.0 and Illness anxiety disorder F45.21 [place] [address], [place] [address] Dec, Illness anxiety disorder F45.21 ; Post-traumatic stress disorder, chronic F43.12 ; Paranoid personality disorder F60.0 ; High risk medication use Z79.899 and Personality disorder in adult F60.9 [facility] [id number], [place] [address] Dec, Major depressive disorder, recurrent episode, moderate F33.1 ; Paranoid personality disorder F60.0 and Illness anxiety disorder F45.21 [place] [address], [place] [address]289 Dec, Major depressive disorder, recurrent episode, moderate F33.1 ; Paranoid personality disorder F60.0 and Illness anxiety disorder F45.21 [place] [address], [place] [address] 2538 Dec, [facility] [address], [place] [address] 8[address] Nov, [facility] [address], [place] [address] 4170 Nov, Major depressive disorder, recurrent episode, moderate F33.1 ; Paranoid personality disorder F60.0 and Illness anxiety disorder F45.21 [facility] [address], [place] [address] 2735 Nov, [facility] [id number] [place] [address] 66436- 8102 Nov, [facility] [address], [place] [address] Nov, Major depressive disorder, recurrent episode, moderate F33.1 ; Paranoid personality disorder F60.0 and Illness anxiety disorder F45.21 [facility] [address], [place] [address] 6700 Nov, [facility] [address], [place] [address] 0[address] Nov, [facility] [address], [place] [address] October, Illness anxiety disorder F45.21 ; Post-traumatic stress disorder, chronic F43.12 ; Paranoid personality disorder F60.0 ; High risk medication use Z79.899 and Personality disorder in adult F60.9 [facility] [id number], [place] [address] 1418 October, Major depressive disorder, recurrent episode, moderate F33.1 ; Paranoid personality disorder F60.0 and Illness anxiety disorder F45.21 [facility] [address], [place] [address]- 8639 October, Major depressive disorder, recurrent episode, moderate F33.1 ; Paranoid personality disorder F60.0 and Illness anxiety disorder F45.21 [place] [id number] [place] [address] 15833- 4385 Sep, Major depressive disorder, recurrent episode, moderate F33.1 ; Paranoid personality disorder F60.0 and Illness anxiety disorder F45.21 [place] [id number] [place] [address] 10336- 3698 Sep, Major depressive disorder, recurrent episode, moderate F33.1 and Illness anxiety disorder F45.21 [place] [id number] [place] [address] 41880- 2989 Aug, Major depressive disorder, recurrent episode, moderate F33.1 and Illness anxiety disorder F45.21 [place] [id number] [place] [address] 85193- 9732 28 Jul, 2017 Major depressive disorder, recurrent episode, moderate F33.1 and Illness anxiety disorder F45.21 [place] [id number] [place] [address] 11181- 3669 Jul, Major depressive disorder, recurrent episode, moderate F33.1 and Illness anxiety disorder F45.21 [place] [id number] [place] [address] 73408- 3912 Jun, Major depressive disorder, recurrent episode, moderate F33.1 and Illness anxiety disorder F45.21 [place] [id number] [place] [address] 81564- 5968 Jun, Major depressive disorder, recurrent episode, moderate F33.1 and Illness anxiety disorder F45.21 [place] [id number] [place] [address] 19671- 4475 May, Major depressive disorder, recurrent episode, moderate F33.1 and Illness anxiety disorder F45.21 [place] [id number] [place] [address] 42280- 7128 05 May, 2017 Major depressive disorder, recurrent episode, moderate F33.1 and Illness anxiety disorder F45.21 [place] [address] [address] Apr, [facility] [address], [place] [address]- 6396 Apr, Major depressive disorder, recurrent episode, moderate F33.1 and Illness anxiety disorder F45.21 [facility] [address], [place] [address]- 3586 Mar, Major depressive disorder, recurrent episode, moderate F33.1 and Illness anxiety disorder F45.21 [facility] [address], [place] [address]- 1486 Mar, Major depressive disorder, recurrent episode, moderate F33.1 [facility] [address], [place] [address]- 6766 Feb, Major depressive disorder, recurrent episode, moderate F33.1 [facility] [address], [place] [address]- 4686 Jan, Major depressive disorder, recurrent episode, moderate F33.1 [facility] [address], [place] [address]- 9672 Jan, Major depressive disorder, recurrent episode, moderate F33.1 [facility] [address], [place] [address]- 2735 Dec, Major depressive disorder, recurrent episode, moderate F33.1 [facility] [address], [place] [address]- 1636 Dec, Major depressive disorder, recurrent episode, moderate F33.1 [facility] [address], [place] [address]- 9696 Jul, Major depressive disorder, recurrent episode, moderate F33.1 [facility] [address] [address] Jul, Major depressive disorder, recurrent episode, moderate F33.1 [facility] [address], [place] [address]- 8512 Jun, Major depressive disorder, recurrent episode, moderate F33.1 [facility] [address] [address] May, Major depressive disorder, recurrent episode, moderate F33.1 [facility] [address] [address] Apr, Major depressive disorder, recurrent episode, moderate F33.1 [facility] [address] [address] Mar, [facility] [address], [place] [address]- 1223 Feb, Major depressive disorder, recurrent episode, moderate F33.1 [facility] [address], [place] [address]- 9846 Jan, Major depressive disorder, recurrent episode, moderate F33.1 [facility] [address], [place] [address]- 2732 Dec, Major depressive disorder, recurrent episode, moderate F33.1 [facility] [address], [place] [address]- 3162 Nov, Major depressive disorder, recurrent episode, moderate F33.1 [facility] [address], [place] [address]- 0036 Jul, Major depressive disorder, recurrent episode, moderate F33.1 [facility] [address] 1299 Jan, Major depressive disorder, recurrent episode, moderate 296.32 [facility] [address], [place] [address]- 0561 Jan, Major depressive disorder, recurrent episode, moderate 296.32 [facility] [address], [place] [address]- 2381 Dec, Major depressive disorder, recurrent episode, moderate 296.32 [facility] [address], [place] [address]- 2546 10 Dec, 2014 Major depressive disorder, recurrent episode, moderate 296.32 [facility] [address] [address]- 9676 Nov, Major depressive disorder, recurrent episode, moderate 296.32 [facility] [address] [address]- 3646 October, Major depressive disorder, recurrent episode, moderate 296.32 [facility] [address] [address]- 2676 Sep, [facility] [address] [address]- 3206 Sep, [facility] [address] [address]- 6516 Aug, [facility] [address], [place] [address]- 1106 Aug, [facility] [address], [place] [address]- 3436 Aug, [facility] [address] [address]- 4146 Aug, [facility] [address], [place] [address]- 4896 Aug, [facility] [address], [place] [address]- 2546 Jul, [facility] [id number], [place] [address]- 2546 Jul, [facility] [id number] [address]- 2546 Jul, [facility] [id number], [place] [address]- 2546 Jul, [facility] [id number], [place] [address]- 3113 Jun, [facility] [place] [facility] [address] [id number] [place] [address]- 6289 Jun, [facility] [place] [facility] [address] [id number] [place] [address]- 9620 May, [facility] [place] [facility] [address] [id number] [place] [address]- 0458 May, [facility] [place] [facility] [address] [id number] [place] [address]- 0991 Apr, [facility] [place] [facility] [address] [id number] [place] [address]- 5685 Apr, [facility] [place] [facility] [address] [id number] [place] [address]- 5172 Mar, [facility] [place] [facility] [address] [id number] [place] [address]- 6066 Mar, [facility] [place] [facility] [address] [id number] [place] [address]- 8695 Mar, [facility] [place] [facility] [address] [id number] [place] [address]- 1443 Mar, [facility] [place] [facility] [address] [id number] [place] [address]- 8816 Mar, [facility] [place] [facility] [address] [id number], [place] [address]- 0124 Mar, [facility] [place] [facility] [address] [id number] [address]- 6403 Mar, [facility] [place] [facility] [address] [id number] [place] [address]- 1180 Mar, [facility] [place] [facility] [address] [id number], [place] [address]- 4066 Feb, [facility] [place] [facility] [address] [id number], [place] [address]- 4980 Feb, [facility] [place] [facility] [address] [id number] [place] [address]- 3178 Feb, [facility] [place] [facility] [address] [id number] [place] [address]- 8682 Feb, [facility] [place] [facility] [address] [id number] [place] [address]- 7077 Jan, [facility] [place] [facility] [address] [id number] [place] [address] Jan, [facility] [place] [facility] [address] [id number] [place] [address]- 3808 Dec, [facility] [place] [facility] [address] [id number] [place] [address]- 3243 Dec, [facility] [place] [facility] [address] [id number] [place] [address]- 6481 Nov, [facility] [place] [facility] [address] [id number] [place] [address]- 4654 Nov, [facility] [place] [facility] [address] [id number] [place] [address]- 0133 October, [facility] [place] [facility] [address] [id number] [place] [address]- 9797 October, [facility] [place] [facility] [address] [id number] [place] [address]- 7063 Sep, [facility] [place] [facility] [address] [id number] [place] [address]- 5333 Sep, [facility] [place] [facility] [address] [id number] [place] [address]- 4198 Aug, [facility] [place] [facility] [address] [id number] [place] [address]- 9484 Aug, [facility] [place] [facility] [address] [id number] [place] [address]- 5153 Jul, [facility] [place] [facility] [address] [id number] [place] [address]- 1439 Jul, [facility] [id number], [place] [address]- 6288 Jun, [facility] [address], [place] [address]- 4884 Jun, [facility] [address], [place] [address]- 6777 Mar, [facility] [address], [place] [address]- 6970 Mar, [facility] [address], [place] [address]- 7015 Mar, [facility] [address], [place] [address]- 2564 Mar, [facility] [address], [place] [address]- 8237 Mar, [facility] [address] [address]677 May, IMMUNIZATIONS No Known Immunizations SOCIAL HISTORY Never Assessed REASON FOR VISIT medication PLAN OF CARE VITAL SIGNS MEDICATIONS Unknown [...]
--- OUTSIDE RECORDS SUMMARY | 2018-08-03 05:38 | XMS REPORT ---
Author Author YON CONSTANTINO Organization [facility] Address [address] [place] [address] Care Team Providers Care Sheet Sorter Name Role Phone YON CONSTANTINO Unavailable PROBLEMS Type Condition ICD9-CM Code ESK01-SX Code Onset Dates Condition Status SNOMED Code Problem Major depressive disorder, recurrent episode, moderate F33.1 Active 716904572 Problem Post-traumatic stress disorder, chronic F43.12 Active 092420502 Problem High risk medication use Z79.899 Active 139769395557817 Problem Illness anxiety disorder F45.21 Active [id number] Problem Acute pharyngitis 462 Active 700012264 Problem Personality disorder in adult F60.9 Active 44797375 Problem Paranoid personality disorder F60.0 Active 95931903 ALLERGIES No Information ENCOUNTERS Encounter Location Date Diagnosis [facility] [id number] [place] [address] 49805- 2476 Apr, [facility] [id number] [place] [address] 75533- 8760 Mar, [facility] [id number] [place] [address] 79662- 3508 Mar, [facility] [address] [place] [address] 07717- 4100 Feb, [facility] [id number] [place] [address] 16449- 8298 Feb, [facility] [id number] [place] [address] 33499- 6806 Feb, Major depressive disorder, recurrent episode, moderate F33.1 ; Paranoid personality disorder F60.0 and Illness anxiety disorder 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 [facility] [id number] [place] [address] 11339- 7149 14 Feb, 2018 [facility] [address], [place] [address]- 0[address] Feb, [place] [address] [address] Jan, Major depressive disorder, recurrent episode, moderate F33.1 ; Paranoid personality disorder F60.0 and Illness anxiety disorder 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 [place] [address] [place] [address] Jan, [place] [address] [place] [address] 1806 Jan, [place] [address] [place] [address] 93589- 9377 Jan, Major depressive disorder, recurrent episode, moderate F33.1 ; Paranoid personality disorder F60.0 and Illness anxiety disorder 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 [place] [address], [place] [address] 8470 Jan, Major depressive disorder, recurrent episode, moderate F33.1 ; Paranoid personality disorder F60.0 and Illness anxiety disorder 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 [place] [address], [place] [address] 224[address] Dec, Illness anxiety disorder 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 ; Post-traumatic stress disorder, chronic F43.12 ; Paranoid personality disorder F60.0 ; High risk medication use Z79.899 and Personality disorder in adult F60.9 [place] [id number], [place] [address] Dec, Major depressive disorder, recurrent episode, moderate F33.1 ; Paranoid personality disorder F60.0 and 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 [place] [id number], [place] [address] 2608 Dec, Major depressive disorder, recurrent episode, moderate F33.1 ; Paranoid personality disorder F60.0 and Illness anxiety disorder 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 [place] [id number], [place] [address] 1361 Dec, [facility] [id number], [place] [address] 5687 Nov, [facility] [address], [place] [address]- 6280 Nov, Major depressive disorder, recurrent episode, moderate F33.1 ; Paranoid personality disorder F60.0 and Illness anxiety disorder 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 [facility] [address], [place] [address]- 9213 Nov, [facility] [id number] [place] [address] 50272- 2509 Nov, [facility] [address], [place] [address] 9000 Nov, Major depressive disorder, recurrent episode, moderate F33.1 ; Paranoid personality disorder F60.0 and Illness anxiety disorder 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 [facility] [address], [place] [address]- 4490 Nov, [facility] [address], [place] [address]- 9800 Nov, [facility] [address], [place] [address]- 6452 October, Illness anxiety disorder 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 [place] [address], [place] [address]- 3537 Sep, Major depressive disorder, recurrent episode, moderate F33.1 ; Paranoid personality disorder F60.0 and 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 [place] [address], [place] [address]- 1846 Sep, Major depressive disorder, recurrent episode, moderate F33.1 and Illness anxiety disorder F45.21 [place] [id number] [place] [address] 42225- 1647 Aug, Major depressive disorder, recurrent episode, moderate F33.1 and Illness anxiety disorder F45.21 [place] [id number] [place] [address] 33998- 8386 28 Jul, 2017 Major depressive disorder, recurrent episode, moderate F33.1 and Illness anxiety disorder F45.21 [place] [id number] [place] [address] 24571- 4015 Jul, Major depressive disorder, recurrent episode, moderate F33.1 and Illness anxiety disorder F45.21 [place] [id number] [place] [address] 66223- 7592 Jun, Major depressive disorder, recurrent episode, moderate F33.1 and Illness anxiety disorder F45.21 [place] [address] [place] [address] 82525- 2399 Jun, Major depressive disorder, recurrent episode, moderate F33.1 and Illness anxiety disorder F45.21 [place] [address], [place] [address]- 9693 May, Major depressive disorder, recurrent episode, moderate F33.1 and Illness anxiety disorder F45.21 [place] [address] [place] [address] 00730- 4927 05 May, 2017 Major depressive disorder, recurrent episode, moderate F33.1 and Illness anxiety disorder F45.21 [place] [address] [place] [address]- 8596 Apr, [facility] [address], [place] [address]- 5136 Apr, Major depressive disorder, recurrent episode, moderate F33.1 and Illness anxiety disorder F45.21 [facility] [address] [address]66 Mar, Major depressive disorder, recurrent episode, moderate F33.1 and Illness anxiety disorder F45.21 [facility] [address], [place] [address]- 4056 Mar, Major depressive disorder, recurrent episode, moderate F33.1 [facility] [address], [place] [address]- 8246 Feb, Major depressive disorder, recurrent episode, moderate F33.1 [facility] [address], [place] [address]- 0246 Jan, Major depressive disorder, recurrent episode, moderate F33.1 [facility] [address], [place] [address]- 5399 Jan, Major depressive disorder, recurrent episode, moderate F33.1 [facility] [address], [place] [address]- 1714 Dec, Major depressive disorder, recurrent episode, moderate F33.1 [facility] [address], [place] [address]- 1986 Dec, Major depressive disorder, recurrent episode, moderate F33.1 [facility] [address], [place] [address]- 2196 Jul, Major depressive disorder, recurrent episode, moderate F33.1 [facility] [address], [place] [address]- 8596 Jul, Major depressive disorder, recurrent episode, moderate F33.1 [facility] [address], [place] [address]- 4376 Jun, Major depressive disorder, recurrent episode, moderate F33.1 [facility] [address] [address]851 May, Major depressive disorder, recurrent episode, moderate F33.1 [facility] [address] [address] Apr, Major depressive disorder, recurrent episode, moderate F33.1 [facility] [id number] [place] [address] 618570- 3952 Mar, [facility] [id number] [place] [address] 16586- 8742 Feb, Major depressive disorder, recurrent episode, moderate F33.1 [facility] [address] [place] [address] 594136- 5551 Jan, Major depressive disorder, recurrent episode, moderate F33.1 [facility] [address], [place] [address]- 2902 Dec, Major depressive disorder, recurrent episode, moderate F33.1 [facility] [address] [place] [address] 58512- 6884 Nov, Major depressive disorder, recurrent episode, moderate F33.1 [facility] [address] [address]6 Jul, Major depressive disorder, recurrent episode, moderate F33.1 [facility] [address], [place] [address]- 0884 Jan, Major depressive disorder, recurrent episode, moderate 296.32 [facility] [address] [place] [address] 46173- 3376 Jan, Major depressive disorder, recurrent episode, moderate 296.32 [facility] [address] [address]792 Dec, Major depressive disorder, recurrent episode, moderate 296.32 [facility] [id number], [place] [address]- 8042 10 Dec, 2014 Major depressive disorder, recurrent episode, moderate 296.32 [facility] [address] [place] [address]- 4636 Nov, Major depressive disorder, recurrent episode, moderate 296.32 [facility] [address] [place] [address]- 2506 October, Major depressive disorder, recurrent episode, moderate 296.32 [facility] [address] [facility] [id number] [place] [address]- 3805 Sep, [facility] [address] [place] [address]- 8535 Sep, [facility] [address], [place] [address]- 1516 Aug, [facility] [address], [place] [address]- 2564 Aug, [facility] [address], [place] [address]- 1245 Aug, [facility] [address], [place] [address]- 0383 Aug, [facility] [address], [place] [address]- 5732 Aug, [facility] [address], [place] [address]- 9691 Jul, [facility] [id number], [place] [address]- 0777 Jul, [facility] [address], [place] [address]- 2476 Jul, [facility] [id number], [place] [address]- 7246 Jul, [facility] [address], [place] [address]- 9212 Jun, [facility] [place] [facility] [address] [id number] [place] [address]- 9943 Jun, [facility] [place] [facility] [address] [id number] [place] [address]- 4524 May, [facility] [place] [facility] [address] [id number] [place] [address]- 8306 May, [facility] [place] [facility] [address] [id number] [place] [address]- 0278 Apr, [facility] [place] [facility] [address] [id number] [place] [address]- 9627 Apr, [facility] [place] [facility] [address] [id number] [place] [address]- 0146 Mar, [facility] [place] [facility] [address] [id number] [place] [address]- 5516 Mar, [facility] [place] [facility] [address] [id number] [place] [address]- 3182 Mar, [facility] [place] [facility] [address] [id number] [place] [address]- 8507 Mar, [facility] [place] [facility] [address] [id number] [place] [address]- 4337 Mar, [facility] [place] [facility] [address] [id number] [address]- 7038 Mar, [facility] [place] [facility] [address] [id number], [place] [address]- 0000 Mar, [facility] [place] [facility] [address] [id number] [place] [address]- 7157 Mar, [facility] [place] [facility] [address] [id number] [place] [address]- 4005 Feb, [facility] [place] [facility] [address] [id number] [place] [address]- 5367 Feb, [facility] [place] [facility] [address] [id number] [place] [address]- 4845 Feb, [facility] [address] [id number] [place] [address]- 6550 Feb, [facility] [place] [facility] [address] [id number] [place] [address]- 4035 Jan, [facility] [place] [facility] [address] [id number] [place] [address]- 1897 Jan, [facility] [place] [facility] [address] [id number] [place] [address]- 4773 Dec, [facility] [place] [facility] [address] [id number] [place] [address]- 3931 Dec, [facility] [place] [facility] [address] [id number] [place] [address]- 6676 Nov, [facility] [place] [facility] [address] [id number] [place] [address]- 1475 Nov, [facility] [place] [facility] [address] [id number] [place] [address]- 1082 October, [facility] [place] [facility] [address] [id number] [place] [address]- 6398 October, [facility] [place] [facility] [address] [id number] [place] [address]- 8865 Sep, [facility] [place] [facility] [address] [id number] [place] [address]- 0636 Sep, [facility] [place] [facility] [address] [id number] [place] [address]- 4557 Aug, [facility] [place] [facility] [address] [id number] [place] [address]- 2507 Aug, [facility] [place] [facility] [address] [id number] [place] [address]- 6367 Jul, [facility] [place] [facility] [address] [id number] [place] 3746 Jul, [facility] [address] [facility] [id number], [place] [address]- 0115 Jun, [facility] [address], [place] [address]- 6646 Jun, [facility] [address], [place] [address]- 0449 Mar, [facility] [address], [place] [address]- 5756 Mar, [facility] [address], [place] [address]- 3793 Mar, [facility] [address], [place] [address]- 5576 Mar, [facility] [address], [place] [address]- 9551 Mar, [facility] [id number], [place] [address]- 3666 May, IMMUNIZATIONS No Known Immunizations SOCIAL HISTORY Never Assessed REASON FOR VISIT f/u PLAN OF CARE Activity Details Follow Up 2 Weeks Reason: VITAL SIGNS MEDICATIONS Unknown Medications RESULTS No Results PROCEDURES Procedure Date Ordered Result Body Site [facility] ESTAB PT Jan 14, 2018 Psychotherapy, patient &/family, 45 minutes, established patient Jan 14, 2018 INSTRUCTIONS MEDICATIONS ADMINISTERED No Known Medications [...]
--- OUTSIDE RECORDS SUMMARY | 2018-08-03 05:39 | XMS REPORT ---
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 Name Role Phone YON CONSTANTINO Unavailable PROBLEMS Type Condition ICD9-CM Code VAK47-NJ Code Onset Dates Condition Status SNOMED Code Problem Major depressive disorder, recurrent episode, moderate F33.1 Active 689777043 Problem Post-traumatic stress disorder, chronic F43.12 Active 121098675 Problem High risk medication use Z79.899 Active 139916875713803 Problem Illness anxiety disorder F45.21 Active [id number] Problem Acute pharyngitis 462 Active 517857104 Problem Personality disorder in adult F60.9 Active 87337775 Problem Paranoid personality disorder F60.0 Active [id number] ALLERGIES No Information ENCOUNTERS Encounter Location Date Diagnosis [facility] [place] [id number] [place] [address]189- 4733 Mar, [facility] [place] [id number] [place] [address] 45556- 4440 Mar, [facility] [place] [id number] [place] [address] 87303- 3393 Feb, [facility] [place] [id number] [place] [address] 21209- 2534 Feb, [facility] [place] [id number] [place] [address] 55468- 1797 Feb, [facility] [place] [id number] [place] [address] 07629- 0094 Jan, Major depressive disorder, recurrent episode, moderate F33.1 ; Paranoid personality disorder F60.0 and Illness anxiety disorder 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 [facility] [place] [id number] [place] [address] 45312- 8870 Jan, [facility] [place] [address] [address] Jan, [facility] [place] [address] [address] Jan, Major depressive disorder, recurrent episode, moderate F33.1 ; Paranoid personality disorder F60.0 and Illness anxiety disorder F45.21 [place] [address] [address] Jan, Major depressive disorder, recurrent episode, moderate F33.1 ; Paranoid personality disorder F60.0 and Illness anxiety disorder F45.21 [place] [address] [address] Dec, Illness anxiety disorder 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 ; Post-traumatic stress disorder, chronic F43.12 ; Paranoid personality disorder F60.0 ; High risk medication use Z79.899 and Personality disorder in adult F60.9 [place] [id number] [address] Dec, Major depressive disorder, recurrent episode, moderate F33.1 ; Paranoid personality disorder F60.0 and Illness anxiety disorder 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 [place] [id number] [address] 89[address] Dec, Major depressive disorder, recurrent episode, moderate F33.1 ; Paranoid personality disorder F60.0 and Illness anxiety disorder 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 [place] [id number] [address] 6527 Dec, [place] [address] [place] [address] 39[address] Nov, [place] [id number] [address] 2744 Nov, Major depressive disorder, recurrent episode, moderate F33.1 ; Paranoid personality disorder F60.0 and Illness anxiety disorder F45.21 [place] [id number] [address] 7527 Nov, [facility] [place] [address] [place] [address]- 2086 Nov, [facility] [place] [address] [address] 4228 Nov, Major depressive disorder, recurrent episode, moderate F33.1 ; Paranoid personality disorder F60.0 and Illness anxiety disorder 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 [facility] [place] [address] [place] [address] 6[address] Nov, [place] [id number] [place] [address] 74279- 6770 Nov, [facility] [place] [address] [address]9 October, Illness anxiety disorder 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 ; Post-traumatic stress disorder, chronic F43.12 ; Paranoid personality disorder F60.0 ; High risk medication use Z79.899 and Personality disorder in adult F60.9 [facility] [place] [address] [place] [address]- 5947 October, Major depressive disorder, recurrent episode, moderate F33.1 ; Paranoid personality disorder F60.0 and Illness anxiety disorder F45.21 [facility] [place] [address] [place] [address]- 1271 October, Major depressive disorder, recurrent episode, moderate F33.1 ; Paranoid personality disorder F60.0 and Illness anxiety disorder F45.21 [facility] [place] [id number] [address]- 6066 Sep, Major depressive disorder, recurrent episode, moderate F33.1 ; Paranoid personality disorder F60.0 and Illness anxiety disorder F45.21 [facility] [place] [id number] [address]- 0151 Sep, Major depressive disorder, recurrent episode, moderate F33.1 and Illness anxiety disorder F45.21 [place] [address], [place] [address]- 2453 Aug, Major depressive disorder, recurrent episode, moderate F33.1 and Illness anxiety disorder F45.21 [place] [id number] [place] [address] 43899- 1575 Jul, Major depressive disorder, recurrent episode, moderate F33.1 and Illness anxiety disorder F45.21 [place] [id number] [place] [address] 50398- 7459 Jul, Major depressive disorder, recurrent episode, moderate F33.1 and Illness anxiety disorder F45.21 [place] [id number] [place] [address] 06221- 5678 Jun, Major depressive disorder, recurrent episode, moderate F33.1 and Illness anxiety disorder F45.21 [place] [id number] [place] [address] 71235- 5979 Jun, Major depressive disorder, recurrent episode, moderate F33.1 and Illness anxiety disorder F45.21 [place] [id number] [place] [address] 65182- 5128 May, Major depressive disorder, recurrent episode, moderate F33.1 and Illness anxiety disorder F45.21 [place] [address] [place] [address] 46615- 3804 May, Major depressive disorder, recurrent episode, moderate F33.1 and Illness anxiety disorder F45.21 [place] [address] [place] [address] 14405- 3876 Apr, [place] [id number] [place] [address] 27337- 6913 Apr, Major depressive disorder, recurrent episode, moderate F33.1 and Illness anxiety disorder F45.21 [place] [address] [place] [address] 36822- 2977 Mar, Major depressive disorder, recurrent episode, moderate F33.1 and Illness anxiety disorder F45.21 [facility] [place] [address] [address] [address]83 Mar, Major depressive disorder, recurrent episode, moderate F33.1 [facility] [place] [id number] [address]- 7236 Feb, Major depressive disorder, recurrent episode, moderate F33.1 [facility] [place] [address], [place] [address]- 4826 Jan, Major depressive disorder, recurrent episode, moderate F33.1 [facility] [place] [address] [place] [address]- 5829 Jan, Major depressive disorder, recurrent episode, moderate F33.1 [facility] [place] [address] [place] [address]- 0076 Dec, Major depressive disorder, recurrent episode, moderate F33.1 [facility] [place] [address] [place] [address]- 1892 Dec, Major depressive disorder, recurrent episode, moderate F33.1 [facility] [place] [address], [place] [address]- 8536 Jul, Major depressive disorder, recurrent episode, moderate F33.1 [facility] [place] [address] [place] [address]- 1916 Jul, Major depressive disorder, recurrent episode, moderate F33.1 [facility] [place] [address] [place] [address]- 6439 Jun, Major depressive disorder, recurrent episode, moderate F33.1 [facility] [place] [address]- 8376 May, Major depressive disorder, recurrent episode, moderate F33.1 [facility] [place] [id number] 9036 Apr, Major depressive disorder, recurrent episode, moderate F33.1 [facility] [place] [id number] [address]- 0516 Mar, [facility] [place] [address], [place] [address]- 0796 Feb, Major depressive disorder, recurrent episode, moderate F33.1 [facility] [place] [address], [place] [address]- 2546 Jan, Major depressive disorder, recurrent episode, moderate F33.1 [facility] [place] [address], [place] [address]- 4756 Dec, Major depressive disorder, recurrent episode, moderate F33.1 [facility] [place] [address], [place] [address]- 1666 Nov, Major depressive disorder, recurrent episode, moderate F33.1 [facility] [place] [address], [place] [address]- 6746 Jul, Major depressive disorder, recurrent episode, moderate F33.1 [facility] [place] [address], [place] [address]- 3708 Jan, Major depressive disorder, recurrent episode, moderate 296.32 [facility] [place] [address] 1138 Jan, Major depressive disorder, recurrent episode, moderate 296.32 [facility] [place] [address], [place] [address]- 7956 Dec, Major depressive disorder, recurrent episode, moderate 296.32 [facility] [place] [address] 1337 Dec, Major depressive disorder, recurrent episode, moderate 296.32 [facility] [place] [address] 0615 Nov, Major depressive disorder, recurrent episode, moderate 296.32 [facility] [place] [id number] [address]- 7646 October, Major depressive disorder, recurrent episode, moderate 296.32 [facility] [place] [address] [id number] [place] [address]- 1344 14 Sep, 2014 [facility] [place] [facility] [address] [id number] [place] [address]- 0776 13 Sep, 2014 [facility] [place] [facility] [address] [id number] [place] [address]- 4053 30 Aug, 2014 [facility] [place] [facility] [address] [id number] [place] [address]- 5310 Aug, [facility] [place] [facility] [address] [id number] [place] [address]- 4126 Aug, [facility] [place] [facility] [address] [id number] [place] [address]- 6043 Aug, [facility] [place] [facility] [address] [facility] [id number] [place] [address]- 9588 Aug, [facility] [place] [facility] [address] [id number] [place] [address]- 1233 Jul, [facility] [place] [facility] [address] [id number] [place] [address]- 4582 Jul, [facility] [place] [facility] [address] [facility] [id number] [place] [address]- 6145 Jul, [facility] [place] [facility] [address] [facility] [id number] [place] [address]- 7906 Jul, [facility] [place] [facility] [address] [id number] [place] [address]- 0749 Jun, [facility] [place] [facility] [address] [id number] [place] [address]- 1434 Jun, [facility] [place] [facility] [address] [id number] [place] [address]- 3186 May, [facility] [place] [facility] [address] [facility] [id number] [place] [address]- 8176 May, [facility] [place] [facility] [address] [id number], [place] [address]- 5398 Apr, [facility] [place] [facility] [address] [id number] [place] [address]- 1912 Apr, [facility] [place] [facility] [address] [id number] [place] [address]- 4491 Mar, [facility] [place] [facility] [address] [id number] [place] [address]- 1657 Mar, [facility] [place] [facility] [address] [id number] [place] [address]- 7163 Mar, [facility] [place] [facility] [address] [id number] [place] [address]- 0366 Mar, [facility] [place] [facility] [address] [id number] [place] [address]- 0236 Mar, [facility] [place] [facility] [address] [id number] [place] [address]- 4534 Mar, [facility] [place] [facility] [address] [id number] [place] [address]- 9727 Mar, [facility] [place] [facility] [address] [id number] [place] [address]- 3584 Mar, [facility] [place] [facility] [address] [id number] [place] [address]- 2042 Feb, [facility] [place] [facility] [address] [id number] [place] [address]- 3480 Feb, [facility] [place] [facility] [address] [id number], [place] [address]- 4619 Feb, [facility] [place] [facility] [address] [id number] [place] [address]- 0909 Feb, [facility] [place] [facility] [address] [id number] [place] [address]24 Jan, [facility] [place] [facility] [address] [id number] [place] [address]- 8389 Jan, [facility] [place] [facility] [address] [id number] [place] [address]- 0039 15 Dec, 2013 [facility] [place] [facility] [address] [id number] [place] [address]- 3328 Dec, [facility] [place] [facility] [address] [id number] [place] [address]- 6352 Nov, [facility] [place] [facility] [address] [id number] [place] [address]- 1926 Nov, [facility] [place] [facility] [address] [id number] [place] [address]- 0368 October, [facility] [place] [facility] [address] [id number] [place] [address]- 3103 October, [facility] [place] [facility] [address] [id number] [place] [address]- 0920 Sep, [facility] [place] [facility] [address] [id number] [place] [address]- 6357 Sep, [facility] [place] [facility] [address] [id number] [place] [address]- 3129 Aug, [facility] [place] [facility] [address] [id number] [place] [address]- 9015 Aug, [facility] [place] [facility] [address] [id number] [place] [address]- 0176 Jul, [facility] [place] [facility] [address] [id number] [place] [address]- 3583 Jul, [facility] [place] [facility] [address] [id number] [place] [address]- 4891 Jun, [facility] [place] [facility] [address] [id number] [place] [address]- 6413 Jun, [facility] [place] [facility] [address] [id number] [place] [address]- 5208 Mar, [facility] [place] [facility] [address] [id number] [place] [address]- 2234 Mar, [facility] [place] [address] [facility] [id number], [place] [address]- 2546 Mar, [facility] [place] [address] [facility] [id number], [place] [address]- 2546 Mar, [facility] [place] [address] [facility] [id number], [place] [address]- 2546 Mar, [facility] [place] [address] [facility] [id number], [place] [address] 2546 May, IMMUNIZATIONS No Known Immunizations SOCIAL HISTORY Never Assessed REASON FOR VISIT BH f/u - wanted first avail 30 min PLAN OF CARE Activity Details Follow Up 2 Weeks Reason: VITAL SIGNS MEDICATIONS Unknown Medications RESULTS No Results PROCEDURES Procedure Date Ordered Result Body Site [facility] VISIT MENTAL HEALTH ESTAB PT December 24, 2017 Psychotherapy, patient &/family, 30 minutes, established patient December 24, 2017 INSTRUCTIONS MEDICATIONS ADMINISTERED No Known Medications MEDICAL [...]
--- OUTSIDE RECORDS SUMMARY | 2018-08-03 05:39 | XMS REPORT ---
Author Author HAMMAD RUIZ [facility] [address] Address [address] [place] [address] Care Team Providers Care Maintenance Associate Name Role Phone JOSEPH, HAMMAD Unavailable PROBLEMS Type Condition ICD9-CM Code KXV30-BD Code Onset Dates Condition Status SNOMED Code Problem Major depressive disorder, recurrent episode, moderate F33.1 Active 047173338 Problem Post-traumatic stress disorder, chronic F43.12 Active 096954960 Problem High risk medication use Z79.899 Active 913726877678154 Problem Illness anxiety disorder F45.21 Active [id number] Problem Acute pharyngitis 462 Active 714849907 Problem Personality disorder in adult F60.9 Active 86397344 Problem Paranoid personality disorder F60.0 Active [id number] ALLERGIES No Information ENCOUNTERS Encounter Location Date Diagnosis [facility] [address], [place] [address] Mar, [facility] [id number] [place] [address] 9434 Mar, [facility] [address], [place] [address] Feb, [facility] [id number] [place] [address]3298- 3408 Feb, [facility] [id number] [place] [address] 82347- 8054 Feb, [facility] [id number] [place] [address]80- 4542 Jan, Major depressive disorder, recurrent episode, moderate F33.1 ; Paranoid personality disorder F60.0 and Illness anxiety disorder 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0 and Illness anxiety disorder F45.21 [address], [place] [address] Dec, Illness anxiety disorder 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 ; Post-traumatic stress disorder, chronic F43.12 ; Paranoid personality disorder F60.0 ; High risk medication use Z79.899 and Personality disorder in adult F60.9 [facility] [id number], [place] [address] Dec, Major depressive disorder, recurrent episode, moderate F33.1 ; Paranoid personality disorder F60.0 and Illness anxiety disorder 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 [place] [address] [address], [place] [address] Dec, Major depressive disorder, recurrent episode, moderate F33.1 ; Paranoid personality disorder F60.0 and Illness anxiety disorder 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 [facility] [id number], [place] [address] Dec, [place] [address] [address], [place] [address] Nov, [place] [facility] [address], [place] [address] Nov, Major depressive disorder, recurrent episode, moderate F33.1 ; Paranoid personality disorder F60.0 and Illness anxiety disorder 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 [place] [address] [address], [place] [address] Nov, [facility] [facility] [address], [place] [address] Nov, [facility] [address], [place] [address] Nov, Major depressive disorder, recurrent episode, moderate F33.1 ; Paranoid personality disorder F60.0 and 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 [place] [address] [address], [place] [address] Nov, [facility] [id number] [place] [address]71- 4660 Nov, [place] [facility] [address], [place] [address] 240[address] October, 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 ; Post-traumatic stress disorder, chronic F43.12 ; Paranoid personality disorder F60.0 ; High risk medication use Z79.899 and Personality disorder in adult F60.9 [address], [place] [address] October, Major depressive disorder, recurrent episode, moderate F33.1 ; Paranoid personality disorder F60.0 and Illness anxiety disorder 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 [place] [address] [address], [place] [address] 8[address] October, Major depressive disorder, recurrent episode, moderate F33.1 ; Paranoid personality disorder F60.0 and Illness anxiety disorder F45.21 [facility] [id number], [place] [address] Sep, Major depressive disorder, recurrent episode, moderate F33.1 ; Paranoid personality disorder F60.0 and Illness anxiety disorder F45.21 [address], [place] [address]- 94[address] Sep, Major depressive disorder, recurrent episode, moderate F33.1 and Illness anxiety disorder 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 [address], [place] [address]- [address] Aug, Major depressive disorder, recurrent episode, moderate F33.1 and Illness anxiety disorder F45.21 [id number] [place] [address] 56470- 9049 Jul, Major depressive disorder, recurrent episode, moderate F33.1 and Illness anxiety disorder F45.21 [address] [address] [id number] [place] [address] 65384- 6281 Jul, Major depressive disorder, recurrent episode, moderate F33.1 and Illness anxiety disorder F45.21 [address] [facility] [id number] [place] [address] 73745- 7209 Jun, Major depressive disorder, recurrent episode, moderate F33.1 and Illness anxiety disorder F45.21 [id number] [place] [address] 01904- 0013 Jun, Major depressive disorder, recurrent episode, moderate F33.1 and Illness anxiety disorder F45.21 [id number] [place] [address] 57595- 5818 May, Major depressive disorder, recurrent episode, moderate F33.1 and Illness anxiety disorder F45.21 [id number] [place] [address] 67[address]- 3679 05 May, 2017 Major depressive disorder, recurrent episode, moderate F33.1 and Illness anxiety disorder F45.21 [address], [place] [address]- [address] Apr, [id number] [place] [address]36- 4600 Apr, Major depressive disorder, recurrent episode, moderate F33.1 and Illness anxiety disorder F45.21 [id number] [place] [address] 19406- 8490 Mar, Major depressive disorder, recurrent episode, moderate F33.1 and Illness anxiety disorder F45.21 [id number] [address] Mar, Major depressive disorder, recurrent episode, moderate F33.1 [facility] [id number] [address] Feb, Major depressive disorder, recurrent episode, moderate F33.1 [facility] [address], [place] [address]- 3[address] Jan, Major depressive disorder, recurrent episode, moderate F33.1 [facility] [id number], [place] [address]- 0446 Jan, Major depressive disorder, recurrent episode, moderate F33.1 [facility] [address] [address] Dec, Major depressive disorder, recurrent episode, moderate F33.1 [facility] [address], [place] [address]- 3364 Dec, Major depressive disorder, recurrent episode, moderate F33.1 [facility] [address], [place] [address]- 0456 Jul, Major depressive disorder, recurrent episode, moderate F33.1 [facility] [address] [address] Jul, Major depressive disorder, recurrent episode, moderate F33.1 [facility] [address] [address] Jun, Major depressive disorder, recurrent episode, moderate F33.1 [facility] [address], [place] [address]- 6066 May, Major depressive disorder, recurrent episode, moderate F33.1 [facility] [id number] [address] Apr, Major depressive disorder, recurrent episode, moderate F33.1 [facility] [address], [place] [address]- 3326 Mar, [facility] [address], [place] [address]- 6196 Feb, Major depressive disorder, recurrent episode, moderate F33.1 [facility] [address], [place] [address]- 2546 Jan, Major depressive disorder, recurrent episode, moderate F33.1 [facility] [address], [place] [address]- 5236 Dec, Major depressive disorder, recurrent episode, moderate F33.1 [facility] [address], [place] [address]- 3126 Nov, Major depressive disorder, recurrent episode, moderate F33.1 [facility] [address], [place] [address]- 3366 Jul, Major depressive disorder, recurrent episode, moderate F33.1 [facility] [address] [address] Jan, Major depressive disorder, recurrent episode, moderate 296.32 [facility] [address] [address]66 Jan, Major depressive disorder, recurrent episode, moderate 296.32 [facility] [address] [address]686 Dec, Major depressive disorder, recurrent episode, moderate 296.32 [facility] [address] 4[address] Dec, Major depressive disorder, recurrent episode, moderate 296.32 [facility] [address]- 1235 Nov, Major depressive disorder, recurrent episode, moderate 296.32 [facility] [id number], [place] [address]- 5206 October, Major depressive disorder, recurrent episode, moderate 296.32 [facility] [place] [facility] [address] [id number] [place] [address]- 4994 14 Sep, 2014 [facility] [place] [facility] [address] [id number] [place] [address]- 6180 13 Sep, 2014 [facility] [place] [facility] [address] [id number] [place] [address]- 3146 30 Aug, 2014 [facility] [place] [facility] [address] [id number] [place] [address]- 2184 Aug, [facility] [place] [facility] [address] [id number] [place] [address]- 8305 Aug, [facility] [place] [facility] [address] [id number] [place] [address]- 6659 Aug, [facility] [place] [facility] [address] [facility] [id number] [place] [address]- 8527 Aug, [facility] [place] [facility] [address] [id number] [place] [address]- 1276 Jul, [facility] [place] [facility] [address] [id number] [place] [address]- 2265 Jul, [facility] [place] [facility] [address] [facility] [id number] [place] [address]- 0661 Jul, [facility] [place] [facility] [address] [facility] [id number] [place] [address]- 7609 Jul, [facility] [place] [facility] [address] [id number] [place] [address]- 0695 Jun, [facility] [place] [facility] [address] [id number] [place] [address]- 4925 Jun, [facility] [place] [facility] [address] [id number] [place] [address]- 4376 May, [facility] [place] [facility] [address] [id number] [place] [address]- 0824 May, [facility] [place] [facility] [address] [id number], [place] [address]- 6896 Apr, [facility] [place] [facility] [address] [id number] [place] [address]- 2116 Apr, [facility] [place] [facility] [address] [id number] [place] [address]- 9648 Mar, [facility] [place] [facility] [address] [id number] [place] [address]- 1930 Mar, [facility] [place] [facility] [address] [id number] [place] [address]- 9563 Mar, [facility] [place] [facility] [address] [id number] [place] [address]- 0415 Mar, [facility] [place] [facility] [address] [id number] [place] [address]- 4598 Mar, [facility] [place] [facility] [address] [id number] [place] [address]- 6083 Mar, [facility] [place] [facility] [address] [id number] [place] [address]- 4591 Mar, [facility] [place] [facility] [address] [id number] [place] [address]- 9415 Mar, [facility] [place] [facility] [address] [id number] [place] [address]- 3933 Feb, [facility] [place] [facility] [address] [id number], [place] [address]- 3381 Feb, [facility] [place] [facility] [address] [id number], [place] [address]- 6707 Feb, [facility] [place] [facility] [address] [id number] [place] [address]- 3214 Feb, [facility] [place] [facility] [address] [id number] [place] [address]- 1013 Jan, [facility] [place] [facility] [address] [id number] [place] [address] Jan, [facility] [place] [facility] [address] [id number] [place] [address]- 7871 15 Dec, 2013 [facility] [address] [id number] [place] [address]- 2042 Dec, [facility] [place] [facility] [address] [id number] [place] [address]- 8707 Nov, [facility] [address] [id number] [place] [address]- 3204 Nov, [facility] [place] [facility] [address] [id number] [place] [address]- 3328 October, [facility] [address] [id number] [place] [address]- 6464 October, [facility] [address] [id number] [place] [address]- 8030 Sep, [facility] [place] [facility] [address] [id number] [place] [address]- 8589 Sep, [facility] [address] [id number] [place] [address]- 4832 Aug, [facility] [place] [facility] [address] [id number] [place] [address]- 9726 Aug, [facility] [address] [id number] [place] [address]- 3304 Jul, [facility] [place] [facility] [address] [id number] [place] [address]- 1630 Jul, [facility] [place] [facility] [address] [id number] [place] [address]- 5929 Jun, [facility] [place] [facility] [address] [id number] [place] [address] Jun, [facility] [place] [facility] [address] [id number] [place] [address]- 3442 Mar, [facility] [place] [facility] [address] [id number] [place] [address] Mar, [facility] [address] [facility] [id number], [place] [address]- 7253 Mar, [facility] [address] [facility] [id number], [place] [address]- 7945 Mar, [facility] [address] [facility] [id number], [place] [address]- 5095 Mar, [facility] [address] [facility] [id number], [place] [address]- 5093 May, IMMUNIZATIONS No Known Immunizations SOCIAL HISTORY Never Assessed REASON FOR VISIT f/simone Batista RN PLAN OF CARE Activity Details Follow Up prn Reason: VITAL SIGNS Height 69.5 in 2017-12-29 Weight 208 lbs 2017-12-29 Heart Rate 86 bpm 2017-12-29 Respiratory Rate 20 2017-12-29 BMI 30.27 kg/m2 2017-12-29 Blood pressure systolic 128 mmHg 2017-12-29 Blood pressure diastolic 74 mmHg 2017-12-29 MEDICATIONS Medication Instructions Dosage Frequency Start Date End Date Duration Status cyclobenzaprine 10 mg take 1 tablet (10 mg) by oral route 3 times per day Mar, Active Advair Diskus 250-50 MCG/DOSE Inhalation Twice a day 1 puff 12h Active Valerian - Orally Once a day 2 capsules 24h Active ProAir HFA 90 mcg/actuation inhale 2 puffs by Inhalation route every 4 hours as needed PRN shortness of breath/cough Mar, Active Oxygen Active Protonix 40 MG Orally Once a day 1 tablet 24h Active trazodone 100 mg 2 tablets Mar, Active Niacin Flush-Free Ex St 750 MG Orally Once a day 1 capsule 24h Active Metoprolol Tartrate 25 mg Orally Twice a day 1/2 tablet 12h Mar, Active Savella 100 MG Orally Once a day 1 tablet 24h Mar, Active Diazepam 10 MG Orally 4 times a day 1 tablet 6h Mar, Active Budesonide 3 MG Active B-12 Compliance Injection 1000 MCG/ML Injection once monthly 1 ml Active Tramadol HCl 50 mg Orally 3 times a day 1 to 2 tablet as needed 8h Active Lipitor 20 mg 1 tablet by Oral route 1 time per day Mar, Active Seroquel 100 mg take 1 tablet (100 mg) by oral route 2 times per day Mar, Active Systane 0.4-0.3 % Ophthalmic 24 time(s) a day 1 drop into affected eye as needed Not-Taking Entyvio 300 MG Intravenous once every 2 months Active Claritin-D 12 Hour 5-120 MG Orally 2 times a day 1 tablet 12h Active PredniSONE 5 MG Orally Once a day 1 tablet 24h Active Calcium Citrate + D 250-200 MG-UNIT Orally Twice a day 1 tablet 12h Active Hydrocodone-Acetaminophen 10-325 MG Orally 4 times a day 1 tablet 6h Active Grapeseed Extract 500-50 MG Orally 2 times a day 12h Not-Taking Generlac 10 GM/15ML Orally PRN 15 ml Active Effexor XR 150 mg take 1 capsule by Oral route 2 times per day Mar, Active Melatonin 5 MG Orally Once a day 1 tablet at bedtime as needed with food 24h Active D3 Adult 1000 UNIT Orally Once a day 1 tablet 24h Active RESULTS No Results PROCEDURES Procedure Date Ordered Result Body Site [facility] VISIT ESTABLISHED PATIENT December 29, 2017 INSTRUCTIONS MEDICATIONS ADMINISTERED No Known Medications [...]
--- OUTSIDE RECORDS SUMMARY | 2018-08-03 05:39 | XMS REPORT ---
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 Active [id number] Problem Acute pharyngitis 462 Active 976041720 Problem Personality disorder in adult F60.9 Active 43346950 Problem Paranoid personality disorder F60.0 Active [id number] ALLERGIES No Information ENCOUNTERS Encounter Location Date Diagnosis [facility] [id number] [place] [address] 69963- 3654 Mar, [facility] [id number] [place] [address] 22048- 6341 Mar, [facility] [id number] [place] [address] 72782- 9772 Feb, [facility] [id number] [place] [address] 54271- 4945 Feb, [facility] [id number] [place] [address] 20397- 2718 Jan, Major depressive disorder, recurrent episode, moderate F33.1 ; Paranoid personality disorder F60.0 and 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 [facility] [id number] [place] [address] 99304- 9277 Jan, [facility] [id number] [place] [address] 79735- 5695 Jan, [facility] [address] [address] 9056 Jan, Major depressive disorder, recurrent episode, moderate F33.1 ; Paranoid personality disorder F60.0 and 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 [facility] [address] [address]17 Jan, Major depressive disorder, recurrent episode, moderate F33.1 ; Paranoid personality disorder F60.0 and 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 [place] [address] [address] 6872 Dec, 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 ; Post-traumatic stress disorder, chronic F43.12 ; Paranoid personality disorder F60.0 ; High risk medication use Z79.899 and Personality disorder in adult F60.9 [place] [id number] [place] [address] 54308- 8935 Dec, Major depressive disorder, recurrent episode, moderate F33.1 ; Paranoid personality disorder F60.0 and 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 [place] [id number] [place] [address] 99508- 0276 Dec, Major depressive disorder, recurrent episode, moderate F33.1 ; Paranoid personality disorder F60.0 and 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 [place] [address] [address]- 4903 Dec, [facility] [address] [address]- 7364 Nov, [facility] [address] [address]- 6572 Nov, Major depressive disorder, recurrent episode, moderate F33.1 ; Paranoid personality disorder F60.0 and 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 [facility] [address] [address] 4421 Nov, [place] [address] [address] 6017 Nov, [place] [id number] [place] [address] 88336- 7828 Nov, Major depressive disorder, recurrent episode, moderate F33.1 ; Paranoid personality disorder F60.0 and 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 [place] [id number] [place] [address] 20644- 1455 Nov, [place] [id number] [place] [address] 69679- 9741 Nov, [place] [id number] [place] [address] 47559- 2469 October, 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 ; Post-traumatic stress disorder, chronic F43.12 ; Paranoid personality disorder F60.0 ; High risk medication use Z79.899 and Personality disorder in adult F60.9 [place] [id number] [place] [address] 75601- 8984 October, Major depressive disorder, recurrent episode, moderate F33.1 ; Paranoid personality disorder F60.0 and 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 [place] [id number] [place] [address] 79751- 8103 October, Major depressive disorder, recurrent episode, moderate F33.1 ; Paranoid personality disorder F60.0 and 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 [place] [id number] [place] [address] 13123- 7561 Sep, Major depressive disorder, recurrent episode, moderate F33.1 ; Paranoid personality disorder F60.0 and 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 [place] [id number] [place] [address] 70925- 8471 Sep, Major depressive disorder, recurrent episode, moderate F33.1 and 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 [place] [id number] [place] [address] 32587- 1037 Aug, Major depressive disorder, recurrent episode, moderate F33.1 and Illness anxiety disorder 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 [place] [address] [place] [address] 58686- 2158 28 Jul, 2017 Major depressive disorder, recurrent episode, moderate F33.1 and 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 [place] [id number] [place] [address] 37533- 9439 Jul, Major depressive disorder, recurrent episode, moderate F33.1 and Illness anxiety disorder 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 [place] [id number] [place] [address] 08903- 8914 Jun, Major depressive disorder, recurrent episode, moderate F33.1 and Illness anxiety disorder 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 [place] [id number] [place] [address] 56744- 2173 Jun, Major depressive disorder, recurrent episode, moderate F33.1 and Illness anxiety disorder 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 [place] [id number] [place] [address] 37539- 5145 May, Major depressive disorder, recurrent episode, moderate F33.1 and 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 [place] [id number] [place] [address] 39457- 4734 May, Major depressive disorder, recurrent episode, moderate F33.1 and 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 [place] [address] [place] [address] 04768- 1725 Apr, [place] [id number] [place] [address] 69572- 4067 Apr, Major depressive disorder, recurrent episode, moderate F33.1 and 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 [place] [id number] [place] [address] 42195- 7858 Mar, Major depressive disorder, recurrent episode, moderate F33.1 and Illness anxiety disorder 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 [place] [address] [place] [address] 51030- 1203 Mar, Major depressive disorder, recurrent episode, moderate F33.1 [facility] [address] [facility] [id number] [address]- 6896 Feb, Major depressive disorder, recurrent episode, moderate F33.1 [facility] [address] [facility] [id number] [place] [address]46 Jan, Major depressive disorder, recurrent episode, moderate F33.1 [facility] [id number] [address]- 4220 Jan, Major depressive disorder, recurrent episode, moderate F33.1 [facility] [address] [facility] [id number] [address]- 0126 Dec, Major depressive disorder, recurrent episode, moderate F33.1 [facility] [id number] [address]- 4579 Dec, Major depressive disorder, recurrent episode, moderate F33.1 [facility] [id number] [address]- 1602 Jul, Major depressive disorder, recurrent episode, moderate F33.1 [facility] [id number] [address]- 2316 Jul, Major depressive disorder, recurrent episode, moderate F33.1 [facility] [id number] [address]- 2696 Jun, Major depressive disorder, recurrent episode, moderate F33.1 [facility] [id number] [address]- 7081 May, Major depressive disorder, recurrent episode, moderate F33.1 [facility] [id number] 6086 Apr, Major depressive disorder, recurrent episode, moderate F33.1 [facility] [id number] 2816 Mar, [facility] [address] [address]- 5596 Feb, Major depressive disorder, recurrent episode, moderate F33.1 [facility] [address] [address]- 0956 Jan, Major depressive disorder, recurrent episode, moderate F33.1 [facility] [address] [address]- 0836 Dec, Major depressive disorder, recurrent episode, moderate F33.1 [facility] [address] [address]- 5448 Nov, Major depressive disorder, recurrent episode, moderate F33.1 [facility] [address] [address]- 4356 Jul, Major depressive disorder, recurrent episode, moderate F33.1 [facility] [address] 7873 Jan, Major depressive disorder, recurrent episode, moderate 296.32 [facility] [address] [address]- 8946 Jan, Major depressive disorder, recurrent episode, moderate 296.32 [facility] [address] 5157 Dec, Major depressive disorder, recurrent episode, moderate 296.32 [facility] [address] 9924 Dec, Major depressive disorder, recurrent episode, moderate 296.32 [facility] [address] 5175 Nov, Major depressive disorder, recurrent episode, moderate 296.32 [facility] [address] [address]- 4576 October, Major depressive disorder, recurrent episode, moderate 296.32 [facility] [address] [address]8 Sep, [facility] [place] [facility] [address] [id number] [place] [address]- 3354 Sep, [facility] [place] [facility] [address] [id number] [place] [address]- 6272 Aug, [facility] [place] [facility] [address] [id number] [place] [address]- 0314 Aug, [facility] [place] [facility] [address] [id number] [place] [address]- 9554 Aug, [facility] [place] [facility] [address] [id number] [place] [address]- 1996 Aug, [facility] [place] [facility] [address] [id number] [place] [address]- 7429 Aug, [facility] [place] [facility] [address] [id number] [place] [address]- 5732 Jul, [facility] [place] [facility] [address] [id number] [place] [address]- 3875 Jul, [facility] [place] [facility] [address] [id number] [place] [address]- 2846 Jul, [facility] [place] [facility] [address] [facility] [id number] [place] [address]- 5291 Jul, [facility] [place] [facility] [address] [facility] [id number] [place] [address]- 0556 Jun, [facility] [place] [facility] [address] [id number] [place] [address]- 3525 Jun, [facility] [place] [facility] [address] [id number] [place] [address]- 0289 May, [facility] [place] [facility] [address] [id number] [place] [address]- 2181 May, [facility] [place] [facility] [address] [id number] [place] [address]- 5162 Apr, [facility] [place] [facility] [address] [id number] [place] [address]- 7521 Apr, [facility] [place] [facility] [address] [id number] [place] [address]- 1451 Mar, [facility] [place] [facility] [address] [id number] [place] 8890 Mar, [facility] [place] [facility] [address] [id number] [place] [address]- 4783 Mar, [facility] [place] [facility] [address] [id number] [place] [address]- 1782 Mar, [facility] [place] [facility] [address] [id number] [place] [address]- 3768 Mar, [facility] [place] [facility] [address] [id number] [place] [address]- 4110 Mar, [facility] [place] [facility] [address] [id number] [place] [address]- 0234 Mar, [facility] [place] [facility] [address] [id number] [place] [address]- 1886 Mar, [facility] [place] [facility] [address] [id number] [place] [address]- 4102 Feb, [facility] [place] [facility] [address] [id number] [place] [address]- 1608 Feb, [facility] [place] [facility] [address] [id number] [place] [address]- 9649 Feb, [facility] [place] [facility] [address] [id number] [place] [address]- 4401 Feb, [facility] [place] [facility] [address] [id number] [place] [address]- 4364 Jan, [facility] [place] [facility] [address] [id number] [place] 6859 Jan, [facility] [place] [facility] [address] [id number] [place] [address]- 2713 Dec, [facility] [place] [facility] [address] [id number] [place] [address]- 3534 Dec, [facility] [address] [id number] [place] [address]- 1620 Nov, [facility] [place] [facility] [address] [id number] [place] [address]- 0076 Nov, [facility] [place] [facility] [address] [id number] [place] [address]- 1071 October, [facility] [place] [facility] [address] [id number] [place] [address]- 1755 October, [facility] [place] [facility] [address] [id number] [place] [address]- 7502 Sep, [facility] [place] [facility] [address] [id number] [place] [address]- 6620 Sep, [facility] [place] [facility] [address] [id number] [place] [address]- 4666 Aug, [facility] [place] [facility] [address] [id number] [place] [address]- 6090 Aug, [facility] [place] [facility] [address] [id number] [place] [address]- 0243 Jul, [facility] [place] [facility] [address] [id number] [place] [address]- 5967 Jul, [facility] [place] [facility] [address] [id number] [place] [address]- 5806 Jun, [facility] [place] [facility] [address] [id number] [place] [address]- 2342 Jun, [facility] [place] [facility] [address] [id number] [place] [address]- 8878 Mar, [facility] [place] [facility] [address] [id number] [place] [address]- 8806 Mar, [facility] [place] [facility] [address] [id number] [place] [address]- 3044 Mar, [facility] [address] [facility] [id number] [place] [address]- 5826 Mar, [facility] [address] [facility] [id number] [address]- 3026 Mar, [facility] [address] [facility] [id number] [address]- 0819 May, IMMUNIZATIONS No Known Immunizations SOCIAL HISTORY Never Assessed REASON FOR VISIT f/u PLAN OF CARE Activity Details Follow Up 2 Weeks Reason: VITAL SIGNS MEDICATIONS Unknown Medications RESULTS No Results PROCEDURES Procedure Date Ordered Result Body Site [facility] VISIT MENTAL HEALTH ESTAB PT December 09, 2017 Psychotherapy, patient &/family, 45 minutes, established patient December 09, 2017 INSTRUCTIONS MEDICATIONS ADMINISTERED No Known Medications [...]
--- OUTSIDE RECORDS SUMMARY | 2018-08-03 05:40 | XMS REPORT ---
Author Author YON CONSTANTINO Organization [facility] Address [address] [place] [address] Care Team Providers Care Recreation Specialist Name Role Phone YON CONSTANTINO Unavailable PROBLEMS Type Condition ICD9-CM Code [id number] Code Onset Dates Condition Status SNOMED Code Problem Major depressive disorder, recurrent episode, moderate F33.1 Active 177493801 Problem Post-traumatic stress disorder, chronic F43.12 Active 104431003 Problem High risk medication use Z79.899 Active 647447572499209 Problem Illness anxiety disorder F45.21 Active [id number] Problem Acute pharyngitis 462 Active 737348034 Problem Personality disorder in adult F60.9 Active 05600943 Problem Paranoid personality disorder F60.0 Active [id number] ALLERGIES No Information ENCOUNTERS Encounter Location Date Diagnosis [facility] [id number] [place] [address]508- 1947 Mar, [facility] [id number] [place] [address] 08436- 0855 Mar, [facility] [id number] [place] [address] 37509- 9420 Feb, [facility] [id number] [place] [address] 17842- 0799 Feb, [facility] [id number] [place] [address] 36702- 5886 Jan, Major depressive disorder, recurrent episode, moderate F33.1 ; Paranoid personality disorder F60.0 and Illness anxiety disorder 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 [facility] [id number] [place] [address] 66468- 6580 Jan, [facility] [id number] [place] [address] 78341- 6188 Jan, [facility] [address] [address] 59[address] Jan, Major depressive disorder, recurrent episode, moderate F33.1 ; Paranoid personality disorder F60.0 and Illness anxiety disorder F45.21 [facility] [address] [address] Jan, Major depressive disorder, recurrent episode, moderate F33.1 ; Paranoid personality disorder F60.0 and Illness anxiety disorder F45.21 [place] [address] [address] Dec, Illness anxiety disorder F45.21 ; Post-traumatic stress disorder, chronic F43.12 ; Paranoid personality disorder F60.0 ; High risk medication use Z79.899 and Personality disorder in adult F60.9 [place] [id number] [place] [address] 97708- 9586 Dec, Major depressive disorder, recurrent episode, moderate F33.1 ; Paranoid personality disorder F60.0 and Illness anxiety disorder 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 [place] [id number] [place] [address] 59103- 8008 Dec, Major depressive disorder, recurrent episode, moderate F33.1 ; Paranoid personality disorder F60.0 and Illness anxiety disorder F45.21 [place] [address] [address] 4546 Dec, [facility] [address] [address] 3224 Nov, [facility] [address] [address] 9398 Nov, Major depressive disorder, recurrent episode, moderate F33.1 ; Paranoid personality disorder F60.0 and Illness anxiety disorder F45.21 [facility] [address] [address] 9003 Nov, [facility] [place] [address] [address] 7135 Nov, [place] [id number] [place] [address] 96603- 9067 Nov, Major depressive disorder, recurrent episode, moderate F33.1 ; Paranoid personality disorder F60.0 and Illness anxiety disorder 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 [place] [id number] [place] [address] 24836- 4391 Nov, [place] [id number] [place] [address] 85225- 3468 Nov, [facility] [id number] [place] [address] 89333- 1126 October, 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 ; Post-traumatic stress disorder, chronic F43.12 ; Paranoid personality disorder F60.0 ; High risk medication use Z79.899 and Personality disorder in adult F60.9 [place] [id number] [place] [address] 53296- 4594 October, Major depressive disorder, recurrent episode, moderate F33.1 ; Paranoid personality disorder F60.0 and Illness anxiety disorder 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 [place] [address] [place] [address] 04659- 5229 October, Major depressive disorder, recurrent episode, moderate F33.1 ; Paranoid personality disorder F60.0 and Illness anxiety disorder F45.21 [place] [id number] [place] [address] 17654- 7507 Sep, Major depressive disorder, recurrent episode, moderate F33.1 ; Paranoid personality disorder F60.0 and Illness anxiety disorder F45.21 [place] [id number] [place] [address] 22589- 2246 Sep, Major depressive disorder, recurrent episode, moderate F33.1 and Illness anxiety disorder F45.21 [place] [address] [place] [address] 08354- 2070 Aug, Major depressive disorder, recurrent episode, moderate F33.1 and Illness anxiety disorder F45.21 [place] [address] [place] [address] 69624- 8053 28 Jul, 2017 Major depressive disorder, recurrent episode, moderate F33.1 and Illness anxiety disorder F45.21 [place] [address] [place] [address] 62899- 6099 Jul, Major depressive disorder, recurrent episode, moderate F33.1 and Illness anxiety disorder F45.21 [place] [id number] [place] [address] 80829- 1044 Jun, Major depressive disorder, recurrent episode, moderate F33.1 and Illness anxiety disorder F45.21 [place] [id number] [place] [address] 59965- 6613 Jun, Major depressive disorder, recurrent episode, moderate F33.1 and Illness anxiety disorder F45.21 [place] [id number] [place] [address] 53543- 4176 May, Major depressive disorder, recurrent episode, moderate F33.1 and Illness anxiety disorder F45.21 [place] [id number] [place] [address] 63093- 8134 May, Major depressive disorder, recurrent episode, moderate F33.1 and Illness anxiety disorder F45.21 [place] [address] [place] [address] 92505- 5692 Apr, [place] [id number] [place] [address] 86108- 9963 Apr, Major depressive disorder, recurrent episode, moderate F33.1 and Illness anxiety disorder F45.21 [place] [id number] [place] [address] 31801- 1414 Mar, Major depressive disorder, recurrent episode, moderate F33.1 and Illness anxiety disorder F45.21 [place] [address] [place] [address] 31282- 3960 Mar, Major depressive disorder, recurrent episode, moderate F33.1 [facility] [address] [facility] [id number] [address] 3936 Feb, Major depressive disorder, recurrent episode, moderate F33.1 [facility] [address] [facility] [id number] [place] [address] Jan, Major depressive disorder, recurrent episode, moderate F33.1 [facility] [id number] [address]- 2640 Jan, Major depressive disorder, recurrent episode, moderate F33.1 [facility] [address] [facility] [id number] [address]- 9606 Dec, Major depressive disorder, recurrent episode, moderate F33.1 [facility] [id number] [address]- 2375 Dec, Major depressive disorder, recurrent episode, moderate F33.1 [facility] [id number] [address]- 2948 Jul, Major depressive disorder, recurrent episode, moderate F33.1 [facility] [id number] [address]- 6986 Jul, Major depressive disorder, recurrent episode, moderate F33.1 [facility] [id number] [address]- 4301 Jun, Major depressive disorder, recurrent episode, moderate F33.1 [facility] [id number] [address]- 0213 May, Major depressive disorder, recurrent episode, moderate F33.1 [facility] [id number] 3356 Apr, Major depressive disorder, recurrent episode, moderate F33.1 [facility] [id number]- [address] Mar, [facility] [address] [address]- 4386 Feb, Major depressive disorder, recurrent episode, moderate F33.1 [facility] [address] [address]- 9546 Jan, Major depressive disorder, recurrent episode, moderate F33.1 [facility] [address] [address]- 4446 Dec, Major depressive disorder, recurrent episode, moderate F33.1 [facility] [address] [address]- 6895 Nov, Major depressive disorder, recurrent episode, moderate F33.1 [facility] [address] [address]- 8246 Jul, Major depressive disorder, recurrent episode, moderate F33.1 [facility] [address] 4412 Jan, Major depressive disorder, recurrent episode, moderate 296.32 [facility] [address] [address]- 3594 Jan, Major depressive disorder, recurrent episode, moderate 296.32 [facility] [address] 0067 Dec, Major depressive disorder, recurrent episode, moderate 296.32 [facility] [address] 8902 Dec, Major depressive disorder, recurrent episode, moderate 296.32 [facility] [address] 1296 Nov, Major depressive disorder, recurrent episode, moderate 296.32 [facility] [address] [address]- 3286 October, Major depressive disorder, recurrent episode, moderate 296.32 [facility] [address] 7269 Sep, [facility] [place] [facility] [address] [id number] [place] [address]- 2685 Sep, [facility] [place] [facility] [address] [id number] [place] [address]- 2755 Aug, [facility] [place] [facility] [address] [id number] [place] [address]- 6714 Aug, [facility] [place] [facility] [address] [id number] [place] [address]- 8959 Aug, [facility] [place] [facility] [address] [id number] [place] [address]- 2474 Aug, [facility] [place] [facility] [address] [id number] [place] [address]- 1907 Aug, [facility] [place] [facility] [address] [id number] [place] [address]- 8778 Jul, [facility] [place] [facility] [address] [id number] [place] [address]- 4853 Jul, [facility] [place] [facility] [address] [id number] [place] [address]- 1938 Jul, [facility] [place] [facility] [address] [facility] [id number] [place] [address]- 0453 Jul, [facility] [place] [facility] [address] [facility] [id number] [place] [address]- 8216 Jun, [facility] [place] [facility] [address] [id number] [place] [address]- 2806 Jun, [facility] [place] [facility] [address] [id number] [place] [address]- 7534 May, [facility] [place] [facility] [address] [id number] [place] [address]- 9079 May, [facility] [place] [facility] [address] [id number] [place] [address]- 6336 Apr, [facility] [place] [facility] [address] [id number] [place] [address]- 8825 Apr, [facility] [place] [facility] [address] [id number] [place] [address]- 6682 Mar, [facility] [place] [facility] [address] [id number] [place] 9868 Mar, [facility] [place] [facility] [address] [id number] [place] [address]- 2387 Mar, [facility] [place] [facility] [address] [id number] [place] [address]- 3762 Mar, [facility] [place] [facility] [address] [id number] [place] [address]- 6081 Mar, [facility] [place] [facility] [address] [id number] [place] [address]- 2330 Mar, [facility] [place] [facility] [address] [id number] [place] [address]- 9723 Mar, [facility] [place] [facility] [address] [id number] [place] [address]- 1820 Mar, [facility] [place] [facility] [address] [id number] [place] [address]- 2067 Feb, [facility] [place] [facility] [address] [id number] [place] [address]- 9139 Feb, [facility] [place] [facility] [address] [id number] [place] [address]- 4606 Feb, [facility] [place] [facility] [address] [id number] [place] [address]- 5274 Feb, [facility] [place] [facility] [address] [id number] [place] [address]- 1248 Jan, [facility] [place] [facility] [address] [id number] [place] 2350 Jan, [facility] [place] [facility] [address] [id number] [place] [address]- 9250 Dec, [facility] [place] [facility] [address] [id number] [place] [address]- 7831 Dec, [facility] [address] [id number] [place] [address]- 3462 Nov, [facility] [place] [facility] [address] [id number] [place] [address]- 5687 Nov, [facility] [place] [facility] [address] [id number] [place] [address]- 0262 October, [facility] [place] [facility] [address] [id number] [place] [address]- 2756 October, [facility] [place] [facility] [address] [id number] [place] [address]- 9407 Sep, [facility] [place] [facility] [address] [id number] [place] [address]- 2253 Sep, [facility] [place] [facility] [address] [id number] [place] [address]- 6011 Aug, [facility] [place] [facility] [address] [id number] [place] [address]- 7730 Aug, [facility] [place] [facility] [address] [id number] [place] [address]- 9768 Jul, [facility] [place] [facility] [address] [id number] [place] [address]- 1787 Jul, [facility] [place] [facility] [address] [id number] [place] [address]- 6909 Jun, [facility] [place] [facility] [address] [id number] [place] [address]- 8597 Jun, [facility] [place] [facility] [address] [id number] [place] [address]- 8499 Mar, [facility] [place] [facility] [address] [id number] [place] [address]- 8016 Mar, [facility] [place] [facility] [address] [id number] [place] [address]- 9435 Mar, [facility] [address] [facility] [id number] [place] [address]- 2546 Mar, [facility] [address] [facility] [id number] [address]- 2546 Mar, [facility] [address] [facility] [id number] [address]- 4108 May, IMMUNIZATIONS No Known Immunizations SOCIAL HISTORY Never Assessed REASON FOR VISIT SOCWK Intake PLAN OF CARE VITAL SIGNS MEDICATIONS Unknown [...]
--- OUTSIDE RECORDS SUMMARY | 2018-08-03 05:40 | XMS REPORT ---
Author Author YON CONSTANTINO Organization 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 Name Role Phone YON CONSTANTINO Unavailable PROBLEMS Type Condition ICD9-CM Code SKI53-YE Code Onset Dates Condition Status SNOMED Code Problem Major depressive disorder, recurrent episode, moderate F33.1 Active 354638192 Problem Post-traumatic stress disorder, chronic F43.12 Active 640584025 Problem High risk medication use Z79.899 Active 131050863424201 Problem Illness anxiety disorder F45.21 Active 44142333214845081 Problem Acute pharyngitis 462 Active 179551202 Problem Personality disorder in adult F60.9 Active 39509159 Problem Paranoid personality disorder F60.0 Active 94013463 ALLERGIES No Information ENCOUNTERS Encounter Location Date Diagnosis [facility] [id number] [place] [address] 44933- 4858 Mar, [facility] [id number] [place] [address] 66647- 3273 Feb, [facility] [address] [address] 65[address] Feb, [facility] [id number] [place] [address] 58933- 5441 Jan, [facility] [id number] [place] [address] 55275- 2138 Jan, [facility] [id number] [place] [address] 91913- 1029 Jan, [facility] [id number] [place] [address] 45275- 3762 Jan, 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 [address] [address] 7377 Nov, 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 [address] [address] 5996 Nov, 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 ; Post-traumatic stress disorder, chronic F43.12 ; Paranoid personality disorder F60.0 ; High risk medication use Z79.899 and Personality disorder in adult F60.9 [place] [address] [address]- 3691 October, Major depressive disorder, recurrent episode, moderate F33.1 ; Paranoid personality disorder F60.0 and Illness anxiety disorder 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 [place] [address] [address]- 5386 October, Major depressive disorder, recurrent episode, moderate F33.1 ; Paranoid personality disorder F60.0 and Illness anxiety disorder F45.21 [place] [address] [address]- 1041 Sep, Major depressive disorder, recurrent episode, moderate F33.1 ; Paranoid personality disorder F60.0 and Illness anxiety disorder F45.21 [place] [address] [address]- 2359 Sep, Major depressive disorder, recurrent episode, moderate F33.1 and Illness anxiety disorder F45.21 [place] [address] [address]- 7874 Aug, Major depressive disorder, recurrent episode, moderate F33.1 and Illness anxiety disorder F45.21 [place] [id number] [address] 4818 Jul, Major depressive disorder, recurrent episode, moderate F33.1 and Illness anxiety disorder F45.21 [place] [id number] [place] [address] 98962- 6379 Jul, Major depressive disorder, recurrent episode, moderate F33.1 and Illness anxiety disorder F45.21 [place] [id number] [place] [address] 12834- 9478 Jun, Major depressive disorder, recurrent episode, moderate F33.1 and Illness anxiety disorder F45.21 [place] [id number] [place] [address] 31435- 9875 Jun, Major depressive disorder, recurrent episode, moderate F33.1 and Illness anxiety disorder F45.21 [place] [id number] [place] [address] 15658- 6934 May, Major depressive disorder, recurrent episode, moderate F33.1 and Illness anxiety disorder F45.21 [place] [id number] [place] [address] 54454- 4307 May, Major depressive disorder, recurrent episode, moderate F33.1 and Illness anxiety disorder F45.21 [place] [id number] [place] [address] 73473- 5347 Apr, [place] [id number] [place] [address] 78187- 8920 Apr, Major depressive disorder, recurrent episode, moderate F33.1 and Illness anxiety disorder F45.21 [place] [id number] [place] [address] 05105- 9643 Mar, Major depressive disorder, recurrent episode, moderate F33.1 and Illness anxiety disorder F45.21 [place] [id number] [place] [address] 01554- 5626 Mar, Major depressive disorder, recurrent episode, moderate F33.1 [place] [id number] [place] [address] 919133- 7339 Feb, Major depressive disorder, recurrent episode, moderate F33.1 [facility] [id number] [address] Jan, Major depressive disorder, recurrent episode, moderate F33.1 [facility] [address] 4546 Jan, Major depressive disorder, recurrent episode, moderate F33.1 [facility] [address] [address]494 Dec, Major depressive disorder, recurrent episode, moderate F33.1 [facility] [address] [address]556 Dec, Major depressive disorder, recurrent episode, moderate F33.1 [facility] [address] [address]- 2396 Jul, Major depressive disorder, recurrent episode, moderate F33.1 [facility] [id number], [place] [address]- 4728 Jul, Major depressive disorder, recurrent episode, moderate F33.1 [facility] [address], [place] [address]- 8846 Jun, Major depressive disorder, recurrent episode, moderate F33.1 [facility] [address], [place] [address]- 4315 May, Major depressive disorder, recurrent episode, moderate F33.1 [facility] [id number] [address]- 4443 Apr, Major depressive disorder, recurrent episode, moderate F33.1 [facility] [id number] 1636 Mar, [facility] [id number] [address] 8686 13 Feb, 2016 Major depressive disorder, recurrent episode, moderate F33.1 [facility] [id number], [place] [address]- 8584 Jan, Major depressive disorder, recurrent episode, moderate F33.1 [facility] [address], [place] [address]- 4226 Dec, Major depressive disorder, recurrent episode, moderate F33.1 [facility] [address] [address]- 8676 Nov, Major depressive disorder, recurrent episode, moderate F33.1 [facility] [id number], [place] [address]- 7579 Jul, Major depressive disorder, recurrent episode, moderate F33.1 [facility] [address] 9436 Jan, Major depressive disorder, recurrent episode, moderate 296.32 [facility] [address] [address]- 5116 Jan, Major depressive disorder, recurrent episode, moderate 296.32 [facility] [address], [place] [address]- 3477 Dec, Major depressive disorder, recurrent episode, moderate 296.32 [facility] [address] [address]- 7646 Dec, Major depressive disorder, recurrent episode, moderate 296.32 [facility] [address] [address] 2306 Nov, Major depressive disorder, recurrent episode, moderate 296.32 [facility] [id number] 7306 October, Major depressive disorder, recurrent episode, moderate 296.32 [facility] [address] 8566 Sep, [facility] [id number] 6585 Sep, [facility] [place] [facility] [address] [id number] [place] [address]- 5845 Aug, [facility] [place] [facility] [address] [id number] [place] [address]- 3180 Aug, [facility] [place] [facility] [address] [id number] [place] [address]- 5614 Aug, [facility] [place] [facility] [address] [id number] [place] [address]- 4643 Aug, [facility] [place] [facility] [address] [id number] [place] [address]- 4681 Aug, [facility] [place] [facility] [address] [id number] [place] [address]- 1492 Jul, [facility] [place] [facility] [address] [id number] [place] [address]- 2418 Jul, [facility] [place] [facility] [address] [id number] [place] [address]- 4847 Jul, [facility] [place] [facility] [address] [id number] [place] [address]- 6007 Jul, [facility] [place] [facility] [address] [facility] [id number] [place] [address]- 4039 Jun, [facility] [place] [facility] [address] [id number] [place] [address]- 8124 Jun, [facility] [place] [facility] [address] [id number] [address]- 9012 May, [facility] [place] [facility] [address] [id number] [place] [address]- 5992 May, [facility] [place] [facility] [address] [id number] [place] [address]- 1796 Apr, [facility] [place] [facility] [address] [id number] [place] [address]- 9898 Apr, [facility] [place] [facility] [address] [id number], [place] [address]- 2760 Mar, [facility] [place] [facility] [address] [id number] [place] [address]- 7831 Mar, [facility] [place] [facility] [address] [id number] [place] [address]- 9083 Mar, [facility] [place] [facility] [address] [id number] [place] [address]185 Mar, [facility] [place] [facility] [address] [id number] [place] [address]- 9902 Mar, [facility] [place] [facility] [address] [id number] [place] [address]- 4122 Mar, [facility] [place] [facility] [address] [id number] [place] [address]- 3201 Mar, [facility] [place] [facility] [address] [facility] [id number] [place] [address]- 1814 Mar, [facility] [place] [facility] [address] [id number] [place] [address]- 5392 Feb, [facility] [place] [facility] [address] [id number] [place] [address]- 9354 Feb, [facility] [place] [facility] [address] [facility] [id number] [place] [address]- 9018 Feb, [facility] [place] [facility] [address] [id number] [place] [address]- 3063 Feb, [facility] [place] [facility] [address] [id number], [place] [address]- 9755 Jan, [facility] [place] [facility] [address] [id number] [place] 6411 Jan, [facility] [place] [facility] [address] [facility] [id number] [place] 1934 Dec, [facility] [place] [facility] [address] [facility] [id number] [place] [address]- 0694 Dec, [facility] [place] [facility] [address] [id number] [place] [address]- 4842 Nov, [facility] [place] [facility] [address] [id number] [place] [address]- 1412 Nov, [facility] [place] [facility] [address] [id number] [place] [address]- 3843 October, [facility] [place] [facility] [address] [id number] [place] [address]- 2427 October, [facility] [place] [facility] [address] [id number] [place] [address]- 7494 Sep, [facility] [place] [facility] [address] [id number] [place] [address]- 4527 Sep, [facility] [place] [facility] [address] [id number] [place] [address]- 4792 Aug, [facility] [place] [facility] [address] [id number] [place] [address]- 7284 Aug, [facility] [place] [facility] [address] [id number] [place] [address]- 4028 Jul, [facility] [place] [facility] [address] [id number] [place] [address]- 0739 Jul, [facility] [place] [facility] [address] [id number] [place] [address]- 0658 Jun, [facility] [place] [facility] [address] [id number] [place] [address]- 2980 Jun, [facility] [place] [facility] [address] [id number] [place] [address]- 6311 Mar, [facility] [place] [facility] [address] [id number] [place] [address]- 5003 Mar, [facility] [place] [facility] [address] [id number] [place] [address]- 7582 Mar, [facility] [place] [facility] [address] [id number] [place] [address]- 2622 Mar, [facility] [address] [facility] [id number] [place] [address]- 8886 Mar, [facility] [address] [facility] [id number] [place] [address]- 2546 May, IMMUNIZATIONS No Known Immunizations SOCIAL HISTORY Never Assessed REASON FOR VISIT f/u PLAN OF CARE Activity Details Follow Up 2 Weeks Reason: VITAL SIGNS MEDICATIONS Unknown Medications RESULTS No Results PROCEDURES Procedure Date Ordered Result Body Site [facility] VISIT MENTAL HEALTH ESTAB PT November 26, 2017 Psychotherapy, patient &/family, 45 minutes, established patient November 26, 2017 INSTRUCTIONS MEDICATIONS ADMINISTERED No Known Medications [...]
--- OUTSIDE RECORDS SUMMARY | 2018-08-03 05:40 | XMS REPORT ---
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 Name Role Phone YON CONSTANTINO Unavailable PROBLEMS Type Condition ICD9-CM Code EQU60-OM Code Onset Dates Condition Status SNOMED Code Problem Major depressive disorder, recurrent episode, moderate F33.1 Active 694677630 Problem Post-traumatic stress disorder, chronic F43.12 Active 195508899 Problem High risk medication use Z79.899 Active 622964970120817 Problem Illness anxiety disorder F45.21 Active [id number] Problem Acute pharyngitis 462 Active 721602431 Problem Personality disorder in adult F60.9 Active 84141552 Problem Paranoid personality disorder F60.0 Active [id number] ALLERGIES No Information ENCOUNTERS Encounter Location Date Diagnosis [facility] [id number] [place] [address] 77744- 8887 Mar, [facility] [id number] [place] [address] 08857- 2567 Mar, [facility] [id number] [place] [address] 45610- 7625 Feb, [facility] [id number] [place] [address] 64588- 7895 Feb, [facility] [id number] [place] [address] 59428- 0556 Jan, Major depressive disorder, recurrent episode, moderate F33.1 ; Paranoid personality disorder F60.0 and Illness anxiety disorder 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 [facility] [id number] [place] [address] 61580- 7153 Jan, [facility] [id number] [place] [address] 68401- 9809 Jan, [facility] [address] [address] 1686 Jan, Major depressive disorder, recurrent episode, moderate F33.1 ; Paranoid personality disorder F60.0 and Illness anxiety disorder 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 [facility] [address], [place] [address] Jan, Major depressive disorder, recurrent episode, moderate F33.1 ; Paranoid personality disorder F60.0 and Illness anxiety disorder F45.21 [place] [place] [address] [address] Dec, Illness anxiety disorder 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 ; Post-traumatic stress disorder, chronic F43.12 ; Paranoid personality disorder F60.0 ; High risk medication use Z79.899 and Personality disorder in adult F60.9 [facility] [id number] [place] [address] 02743- 4269 Dec, Major depressive disorder, recurrent episode, moderate F33.1 ; Paranoid personality disorder F60.0 and Illness anxiety disorder F45.21 [facility] [place] [id number] [place] [address] 70942- 7060 Dec, Major depressive disorder, recurrent episode, moderate F33.1 ; Paranoid personality disorder F60.0 and Illness anxiety disorder F45.21 [facility] [address] [address] 2676 Dec, [facility] [address] [address] 8479 Nov, [facility] [address] [address] 6545 Nov, Major depressive disorder, recurrent episode, moderate F33.1 ; Paranoid personality disorder F60.0 and Illness anxiety disorder F45.21 [facility] [address] [address] 4815 Nov, [facility] [address] [address] 7149 Nov, [facility] [id number] [place] [address] 49581- 3353 Nov, Major depressive disorder, recurrent episode, moderate F33.1 ; Paranoid personality disorder F60.0 and Illness anxiety disorder F45.21 [facility] [id number] [place] [address] 68182- 3863 Nov, [facility] [id number] [place] [address] 62049- 5094 Nov, [facility] [id number] [place] [address] 39493- 4025 October, Illness anxiety disorder 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 ; Post-traumatic stress disorder, chronic F43.12 ; Paranoid personality disorder F60.0 ; High risk medication use Z79.899 and Personality disorder in adult F60.9 [facility] [id number] [place] [address] 99162- 4576 October, Major depressive disorder, recurrent episode, moderate F33.1 ; Paranoid personality disorder F60.0 and Illness anxiety disorder F45.21 [facility] [id number] [place] [address] 98024- 8461 October, Major depressive disorder, recurrent episode, moderate F33.1 ; Paranoid personality disorder F60.0 and Illness anxiety disorder F45.21 [facility] [place] [id number] [place] [address] 03708- 6187 Sep, Major depressive disorder, recurrent episode, moderate F33.1 ; Paranoid personality disorder F60.0 and Illness anxiety disorder F45.21 [facility] [id number] [place] [address] 19520- 4218 Sep, Major depressive disorder, recurrent episode, moderate F33.1 and Illness anxiety disorder F45.21 [facility] [id number] [place] [address] 51475- 0702 Aug, Major depressive disorder, recurrent episode, moderate F33.1 and Illness anxiety disorder F45.21 [facility] [address] [place] [address] 81573- 2462 28 Jul, 2017 Major depressive disorder, recurrent episode, moderate F33.1 and Illness anxiety disorder F45.21 [facility] [place] [address] [place] [address] 64005- 3810 Jul, Major depressive disorder, recurrent episode, moderate F33.1 and Illness anxiety disorder F45.21 [facility] [id number] [place] [address] 90232- 3671 Jun, Major depressive disorder, recurrent episode, moderate F33.1 and Illness anxiety disorder F45.21 [facility] [id number] [place] [address] 71986- 5620 Jun, Major depressive disorder, recurrent episode, moderate F33.1 and Illness anxiety disorder F45.21 [facility] [id number] [place] [address] 19727- 1054 May, Major depressive disorder, recurrent episode, moderate F33.1 and Illness anxiety disorder F45.21 [facility] [id number] [place] [address] 78213- 3652 May, Major depressive disorder, recurrent episode, moderate F33.1 and Illness anxiety disorder F45.21 [facility] [place] [address] [place] [address] 92394- 0360 Apr, [facility] [id number] [place] [address] 03432- 4182 Apr, Major depressive disorder, recurrent episode, moderate F33.1 and Illness anxiety disorder F45.21 [facility] [id number] [place] [address] 10408- 2704 Mar, Major depressive disorder, recurrent episode, moderate F33.1 and Illness anxiety disorder F45.21 [facility] [address] [place] [address] 13103- 3460 Mar, Major depressive disorder, recurrent episode, moderate F33.1 [facility] [address] [facility] [id number] [address] 2846 Feb, Major depressive disorder, recurrent episode, moderate F33.1 [facility] [address] [facility] [id number] [place] [address]876 Jan, Major depressive disorder, recurrent episode, moderate F33.1 [facility] [id number] [address]- 7530 Jan, Major depressive disorder, recurrent episode, moderate F33.1 [facility] [address] [facility] [id number] [address]- 4456 Dec, Major depressive disorder, recurrent episode, moderate F33.1 [facility] [id number] [address]- 5073 Dec, Major depressive disorder, recurrent episode, moderate F33.1 [facility] [id number] [address]- 3195 Jul, Major depressive disorder, recurrent episode, moderate F33.1 [facility] [id number] [address]- 4544 Jul, Major depressive disorder, recurrent episode, moderate F33.1 [facility] [id number], [place] [address]- 9712 Jun, Major depressive disorder, recurrent episode, moderate F33.1 [facility] [id number] [address]- 3587 May, Major depressive disorder, recurrent episode, moderate F33.1 [facility] [id number] 1256 Apr, Major depressive disorder, recurrent episode, moderate F33.1 [facility] [id number] [address] 3416 Mar, [facility] [address] [address]- 2096 Feb, Major depressive disorder, recurrent episode, moderate F33.1 [facility] [address] [address]- 8046 Jan, Major depressive disorder, recurrent episode, moderate F33.1 [facility] [address] [address]- 1566 Dec, Major depressive disorder, recurrent episode, moderate F33.1 [facility] [address] [address]- 1434 Nov, Major depressive disorder, recurrent episode, moderate F33.1 [facility] [address] [address]- 7386 Jul, Major depressive disorder, recurrent episode, moderate F33.1 [facility] [address] 9990 Jan, Major depressive disorder, recurrent episode, moderate 296.32 [facility] [address], [place] [address]- 2915 Jan, Major depressive disorder, recurrent episode, moderate 296.32 [facility] [address] 7854 Dec, Major depressive disorder, recurrent episode, moderate 296.32 [facility] [address] 4002 Dec, Major depressive disorder, recurrent episode, moderate 296.32 [facility] [address] 7454 Nov, Major depressive disorder, recurrent episode, moderate 296.32 [facility] [address], [place] [address]- 9466 October, Major depressive disorder, recurrent episode, moderate 296.32 [facility] [address] 6495 Sep, [facility] [place] [facility] [address] [id number] [place] [address]- 4736 Sep, [facility] [place] [facility] [address] [id number] [place] [address]- 1869 Aug, [facility] [place] [facility] [address] [id number] [place] [address]- 0710 Aug, [facility] [place] [facility] [address] [id number] [place] [address]- 5884 Aug, [facility] [place] [facility] [address] [id number] [place] [address]- 7902 Aug, [facility] [place] [facility] [address] [id number] [place] [address]- 5562 Aug, [facility] [place] [facility] [address] [id number] [place] [address]- 8871 Jul, [facility] [place] [facility] [address] [id number] [place] [address]- 3507 Jul, [facility] [place] [facility] [address] [id number] [place] [address]- 9706 Jul, [facility] [place] [facility] [address] [facility] [id number] [place] [address]- 1186 Jul, [facility] [place] [facility] [address] [facility] [id number] [place] [address]- 9852 Jun, [facility] [place] [facility] [address] [id number] [place] [address]- 3769 Jun, [facility] [place] [facility] [address] [id number] [place] [address]- 5292 May, [facility] [place] [facility] [address] [id number] [place] [address]- 2452 May, [facility] [place] [facility] [address] [id number] [place] [address]- 9256 Apr, [facility] [place] [facility] [address] [id number] [place] [address]- 4647 Apr, [facility] [place] [facility] [address] [id number] [place] [address]- 0220 Mar, [facility] [place] [facility] [address] [id number] [place] 0244 Mar, [facility] [place] [facility] [address] [id number] [place] [address]- 5316 Mar, [facility] [place] [facility] [address] [id number] [place] [address]- 0485 Mar, [facility] [place] [facility] [address] [id number] [place] [address]- 3232 Mar, [facility] [place] [facility] [address] [id number] [place] [address]- 7734 Mar, [facility] [place] [facility] [address] [id number] [place] [address]- 0953 Mar, [facility] [place] [facility] [address] [id number] [place] [address]- 2594 Mar, [facility] [place] [facility] [address] [id number] [place] [address]- 3194 Feb, [facility] [place] [facility] [address] [id number] [place] [address]- 5695 Feb, [facility] [place] [facility] [address] [id number] [place] [address]- 9558 Feb, [facility] [place] [facility] [address] [id number] [place] [address]- 7427 Feb, [facility] [place] [facility] [address] [id number] [place] [address]- 4227 Jan, [facility] [place] [facility] [address] [id number] [place] 0765 Jan, [facility] [place] [facility] [address] [id number] [place] [address]- 5897 Dec, [facility] [place] [facility] [address] [id number] [place] [address]- 4278 Dec, [facility] [address] [id number] [place] [address]- 5177 Nov, [facility] [place] [facility] [address] [id number] [place] [address]- 6761 Nov, [facility] [place] [facility] [address] [id number] [place] [address]- 2321 October, [facility] [place] [facility] [address] [id number] [place] [address]- 2823 October, [facility] [place] [facility] [address] [id number] [place] [address]- 8072 Sep, [facility] [place] [facility] [address] [id number] [place] [address]- 9311 Sep, [facility] [place] [facility] [address] [id number] [place] [address]- 9942 Aug, [facility] [place] [facility] [address] [id number] [place] [address]- 8036 Aug, [facility] [place] [facility] [address] [id number] [place] [address]- 4391 Jul, [facility] [place] [facility] [address] [id number] [place] [address]- 8487 Jul, [facility] [place] [facility] [address] [id number] [place] [address]- 0729 Jun, [facility] [place] [facility] [address] [id number] [place] [address]- 4666 Jun, [facility] [place] [facility] [address] [id number] [place] [address]- 0660 Mar, [facility] [place] [facility] [address] [id number] [place] [address]- 7066 Mar, [facility] [place] [facility] [address] [id number] [place] [address]- 8158 Mar, [facility] [address] [facility] [id number] [place] [address]- 2546 Mar, [facility] [address] [facility] [id number], [place] [address]- 2546 Mar, [facility] [address] [facility] [id number], [place] [address]- 4459 May, IMMUNIZATIONS No Known Immunizations SOCIAL HISTORY [...]
--- OUTSIDE RECORDS SUMMARY | 2018-08-03 05:40 | XMS REPORT ---
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 Driver Name Role Phone YON CONSTANTINO Unavailable PROBLEMS Type Condition ICD9-CM Code QRN28-ZV Code Onset Dates Condition Status SNOMED Code Problem Major depressive disorder, recurrent episode, moderate F33.1 Active 716930807 Problem Post-traumatic stress disorder, chronic F43.12 Active 373064536 Problem High risk medication use Z79.899 Active 075938617206791 Problem Illness anxiety disorder F45.21 Active [id number] Problem Acute pharyngitis 462 Active 333206155 Problem Personality disorder in adult F60.9 Active 44463304 Problem Paranoid personality disorder F60.0 Active 65080832 ALLERGIES No Information ENCOUNTERS Encounter Location Date Diagnosis [facility] [id number] [place] [address] 52476- 6744 Mar, [facility] [id number] [place] [address] 31730- 2424 Feb, [facility] [address] [address] 16[address] Feb, [facility] [id number] [place] [address] 39545- 2668 Jan, [facility] [id number] [place] [address] 83763- 7678 Jan, [facility] [id number] [place] [address] 11899- 4978 Jan, [facility] [id number] [place] [address] 86230- 8890 Jan, [facility] [id number] [address] Jan, Major depressive disorder, recurrent episode, moderate F33.1 ; Paranoid personality disorder F60.0 and Illness anxiety disorder F45.21 [facility] [id number] [place] [address] 90915- 1221 Jan, Major depressive disorder, recurrent episode, moderate F33.1 ; Paranoid personality disorder F60.0 and Illness anxiety disorder F45.21 [place] [id number] [place] [address] 83089- 0807 Dec, Illness anxiety disorder F45.21 ; Post-traumatic stress disorder, chronic F43.12 ; Paranoid personality disorder F60.0 ; High risk medication use Z79.899 and Personality disorder in adult F60.9 [address] [place] [id number] [place] [address] 28386- 3761 Dec, Major depressive disorder, recurrent episode, moderate F33.1 ; Paranoid personality disorder F60.0 and Illness anxiety disorder F45.21 [facility] [id number] [place] [address] 35893- 3800 Dec, Major depressive disorder, recurrent episode, moderate F33.1 ; Paranoid personality disorder F60.0 and Illness anxiety disorder F45.21 [place] [address] [address] 2555 Dec, [facility] [address] [address] 4[address] Nov, [facility] [id number] [place] [address] 53676- 8958 Nov, Major depressive disorder, recurrent episode, moderate F33.1 ; Paranoid personality disorder F60.0 and Illness anxiety disorder F45.21 [facility] [address] [address] 8144 Nov, [facility] [id number] [place] [address] 12293- 1821 Nov, [place] [address] [address] 2225 Nov, Major depressive disorder, recurrent episode, moderate F33.1 ; Paranoid personality disorder F60.0 and Illness anxiety disorder F45.21 [facility] [address] [address] 6962 Nov, [place] [address] [address]- 3111 Nov, [place] [address] [address] 6860 October, Illness anxiety disorder F45.21 ; Post-traumatic stress disorder, chronic F43.12 ; Paranoid personality disorder F60.0 ; High risk medication use Z79.899 and Personality disorder in adult F60.9 [place] [address] [address]26 October, Major depressive disorder, recurrent episode, moderate F33.1 ; Paranoid personality disorder F60.0 and Illness anxiety disorder F45.21 [place] [address] [address]- 5139 October, Major depressive disorder, recurrent episode, moderate F33.1 ; Paranoid personality disorder F60.0 and Illness anxiety disorder F45.21 [place] [address] [address]- 3533 Sep, Major depressive disorder, recurrent episode, moderate F33.1 ; Paranoid personality disorder F60.0 and Illness anxiety disorder F45.21 [place] [address] [address]- 7823 Sep, Major depressive disorder, recurrent episode, moderate F33.1 and Illness anxiety disorder F45.21 [place] [address] [address]- 6662 Aug, Major depressive disorder, recurrent episode, moderate F33.1 and Illness anxiety disorder F45.21 [place] [id number] [address] Jul, Major depressive disorder, recurrent episode, moderate F33.1 and Illness anxiety disorder F45.21 [place] [id number] [place] [address] 00386- 2241 Jul, Major depressive disorder, recurrent episode, moderate F33.1 and Illness anxiety disorder F45.21 [place] [id number] [place] [address] 52396- 1612 Jun, Major depressive disorder, recurrent episode, moderate F33.1 and Illness anxiety disorder F45.21 [place] [id number] [place] [address] 85119- 3225 Jun, Major depressive disorder, recurrent episode, moderate F33.1 and Illness anxiety disorder F45.21 [place] [id number] [place] [address] 59821- 2915 May, Major depressive disorder, recurrent episode, moderate F33.1 and Illness anxiety disorder F45.21 [place] [id number] [place] [address] 41912- 7657 May, Major depressive disorder, recurrent episode, moderate F33.1 and Illness anxiety disorder F45.21 [place] [id number] [place] [address] 15585- 7941 Apr, [place] [id number] [place] [address] 59883- 2259 Apr, Major depressive disorder, recurrent episode, moderate F33.1 and Illness anxiety disorder F45.21 [place] [id number] [place] [address] 10585- 9141 Mar, Major depressive disorder, recurrent episode, moderate F33.1 and Illness anxiety disorder F45.21 [place] [id number] [place] [address] 55055- 9040 Mar, Major depressive disorder, recurrent episode, moderate F33.1 [place] [id number] [place] [address] 835631- 6449 Feb, Major depressive disorder, recurrent episode, moderate F33.1 [facility] [id number] [address] Jan, Major depressive disorder, recurrent episode, moderate F33.1 [facility] [address] [address]446 Jan, Major depressive disorder, recurrent episode, moderate F33.1 [facility] [address] [address]60 Dec, Major depressive disorder, recurrent episode, moderate F33.1 [facility] [address] 2126 Dec, Major depressive disorder, recurrent episode, moderate F33.1 [facility] [address] [address]- 7846 Jul, Major depressive disorder, recurrent episode, moderate F33.1 [facility] [id number] [address]- 9505 Jul, Major depressive disorder, recurrent episode, moderate F33.1 [facility] [address] [address]- 8239 Jun, Major depressive disorder, recurrent episode, moderate F33.1 [facility] [address] [address]- 5711 May, Major depressive disorder, recurrent episode, moderate F33.1 [facility] [id number] [address]- 8452 Apr, Major depressive disorder, recurrent episode, moderate F33.1 [facility] [id number] 0136 Mar, [facility] [id number] [id number] [address]996 13 Feb, 2016 Major depressive disorder, recurrent episode, moderate F33.1 [facility] [id number] [address]- 7002 Jan, Major depressive disorder, recurrent episode, moderate F33.1 [facility] [address] [address]- 2366 Dec, Major depressive disorder, recurrent episode, moderate F33.1 [facility] [address] [address]- 2676 Nov, Major depressive disorder, recurrent episode, moderate F33.1 [facility] [id number] [address]- 4193 Jul, Major depressive disorder, recurrent episode, moderate F33.1 [facility] [address] 2996 Jan, Major depressive disorder, recurrent episode, moderate 296.32 [facility] [address] [address]- 9540 Jan, Major depressive disorder, recurrent episode, moderate 296.32 [facility] [address] [address]- 5166 Dec, Major depressive disorder, recurrent episode, moderate 296.32 [facility] [address] [address]- 8330 Dec, Major depressive disorder, recurrent episode, moderate 296.32 [facility] [address] 6343 Nov, Major depressive disorder, recurrent episode, moderate 296.32 [facility] [id number] 9296 October, Major depressive disorder, recurrent episode, moderate 296.32 [facility] [address] 6606 Sep, [facility] [id number] 9033 Sep, [facility] [place] [facility] [address] [id number] [place] [address]- 9466 Aug, [facility] [place] [facility] [address] [id number] [place] [address]- 4541 Aug, [facility] [place] [facility] [address] [id number] [place] [address]- 1161 Aug, [facility] [place] [facility] [address] [id number] [place] [address]- 0901 Aug, [facility] [place] [facility] [address] [id number] [place] [address]- 7566 Aug, [facility] [place] [facility] [address] [id number] [place] [address]- 6333 Jul, [facility] [place] [facility] [address] [id number] [place] [address]- 4267 Jul, [facility] [place] [facility] [address] [id number] [place] [address]- 1555 Jul, [facility] [place] [facility] [address] [id number] [place] [address]- 3698 Jul, [facility] [place] [facility] [address] [facility] [id number] [place] [address]- 7232 Jun, [facility] [place] [facility] [address] [id number] [place] [address]- 5218 Jun, [facility] [place] [facility] [address] [id number] [address]- 5184 May, [facility] [place] [facility] [address] [id number] [place] [address]- 4562 May, [facility] [place] [facility] [address] [id number] [place] [address]- 2196 Apr, [facility] [place] [facility] [address] [id number] [place] [address]- 7957 Apr, [facility] [place] [facility] [address] [id number] [address]- 4886 Mar, [facility] [place] [facility] [address] [id number] [place] [address]- 6073 Mar, [facility] [place] [facility] [address] [id number] [place] [address]- 4332 Mar, [facility] [place] [facility] [address] [id number] [place] 2943 Mar, [facility] [place] [facility] [address] [id number] [place] [address]- 5684 Mar, [facility] [place] [facility] [address] [id number] [place] [address]- 3818 Mar, [facility] [place] [facility] [address] [id number] [place] [address]- 3215 Mar, [facility] [place] [facility] [address] [facility] [id number] [place] [address]- 6459 Mar, [facility] [place] [facility] [address] [id number] [place] [address]- 4150 Feb, [facility] [place] [facility] [address] [id number] [place] [address]- 6817 Feb, [facility] [place] [facility] [address] [facility] [id number] [place] [address]- 8954 Feb, [facility] [place] [facility] [address] [id number] [place] [address]- 0256 Feb, [facility] [place] [facility] [address] [id number] [address]- 4904 Jan, [facility] [place] [facility] [address] [id number] [place] 4972 Jan, [facility] [place] [facility] [address] [facility] [id number] [place] 0695 Dec, [facility] [place] [facility] [address] [facility] [id number] [place] [address]- 3069 Dec, [facility] [place] [facility] [address] [id number] [place] [address]- 2547 Nov, [facility] [place] [facility] [address] [id number] [place] [address]- 3748 Nov, [facility] [place] [facility] [address] [id number] [place] [address]- 8249 October, [facility] [place] [facility] [address] [id number] [place] [address]- 1021 October, [facility] [place] [facility] [address] [id number] [place] [address]- 6796 Sep, [facility] [place] [facility] [address] [id number] [place] [address]- 9339 Sep, [facility] [place] [facility] [address] [id number] [place] [address]- 2618 Aug, [facility] [place] [facility] [address] [id number] [place] [address]- 6919 Aug, [facility] [place] [facility] [address] [id number] [place] [address]- 8303 Jul, [facility] [place] [facility] [address] [id number] [place] [address]- 0151 Jul, [facility] [place] [facility] [address] [id number] [place] [address]- 2848 Jun, [facility] [place] [facility] [address] [id number] [place] [address]- 2311 Jun, [facility] [place] [facility] [address] [id number] [place] [address]- 1830 Mar, [facility] [place] [facility] [address] [id number] [place] [address]- 5017 Mar, [facility] [place] [facility] [address] [id number] [place] [address]- 8285 Mar, [facility] [place] [facility] [address] [id number] [place] [address]- 2581 Mar, [facility] [address] [facility] [id number] [place] [address]- 8236 Mar, [facility] [address] [facility] [id number] [place] [address]- 2156 May, IMMUNIZATIONS No Known Immunizations SOCIAL HISTORY [...]
--- OUTSIDE RECORDS SUMMARY | 2018-08-03 05:41 | XMS REPORT ---
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 Name Role Phone YON CONSTANTINO Unavailable PROBLEMS Type Condition ICD9-CM Code HDP89-CP Code Onset Dates Condition Status SNOMED Code Problem Major depressive disorder, recurrent episode, moderate F33.1 Active 940650530 Problem Post-traumatic stress disorder, chronic F43.12 Active 522323646 Problem High risk medication use Z79.899 Active 180214186171635 Problem Illness anxiety disorder F45.21 Active 32097053566873446 Problem Acute pharyngitis 462 Active 208036713 Problem Personality disorder in adult F60.9 Active 36577858 Problem Paranoid personality disorder F60.0 Active 56983544 ALLERGIES No Information ENCOUNTERS Encounter Location Date Diagnosis [facility] [id number] [place] [address] 05669- 4218 Mar, [facility] [id number] [place] [address] 28804- 7009 Feb, [facility] [address] [address] Feb, [facility] [id number] [place] [address] 59970- 3998 Jan, [facility] [id number] [place] [address] 28679- 6652 Jan, [facility] [id number] [place] [address] 64205- 0412 Jan, [facility] [id number] [place] [address] 24386- 4879 Jan, [facility] [id number] [address] Jan, Major depressive disorder, recurrent episode, moderate F33.1 ; Paranoid personality disorder F60.0 and Illness anxiety disorder F45.21 [facility] [id number] [place] [address] 43525- 9905 Jan, Major depressive disorder, recurrent episode, moderate F33.1 ; Paranoid personality disorder F60.0 and Illness anxiety disorder F45.21 [place] [id number] [place] [address] 16262- 2633 Dec, Illness anxiety disorder F45.21 ; Post-traumatic stress disorder, chronic F43.12 ; Paranoid personality disorder F60.0 ; High risk medication use Z79.899 and Personality disorder in adult F60.9 [place] [address] [place] [address] 10964- 7398 Dec, Major depressive disorder, recurrent episode, moderate F33.1 ; Paranoid personality disorder F60.0 and Illness anxiety disorder F45.21 [facility] [id number] [place] [address] 43949- 8057 Dec, Major depressive disorder, recurrent episode, moderate F33.1 ; Paranoid personality disorder F60.0 and Illness anxiety disorder F45.21 [place] [address], [place] [address] Dec, [facility] [address] [address] 7899 Nov, [facility] [address] [place] [address] 36280- 8341 Nov, Major depressive disorder, recurrent episode, moderate F33.1 ; Paranoid personality disorder F60.0 and Illness anxiety disorder F45.21 [facility] [address] [address] 6144 Nov, [facility] [address] [place] [address] 50419- 6677 Nov, [place] [address] [address] Nov, Major depressive disorder, recurrent episode, moderate F33.1 ; Paranoid personality disorder F60.0 and Illness anxiety disorder F45.21 [facility] [address], [place] [address] 7497 Nov, [place] [address] [address] 0966 Nov, [place] [address] [place] [address] October, Illness anxiety disorder 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 ; Post-traumatic stress disorder, chronic F43.12 ; Paranoid personality disorder F60.0 ; High risk medication use Z79.899 and Personality disorder in adult F60.9 [place] [address] [address] 9862 October, Major depressive disorder, recurrent episode, moderate F33.1 ; Paranoid personality disorder F60.0 and Illness anxiety disorder F45.21 [place] [address], [place] [address] 4938 October, Major depressive disorder, recurrent episode, moderate F33.1 ; Paranoid personality disorder F60.0 and Illness anxiety disorder F45.21 [place] [address] [place] [address] 3518 Sep, Major depressive disorder, recurrent episode, moderate F33.1 ; Paranoid personality disorder F60.0 and Illness anxiety disorder F45.21 [place] [address] [address] 2099 Sep, Major depressive disorder, recurrent episode, moderate F33.1 and Illness anxiety disorder F45.21 [place] [address], [place] [address]- 9951 Aug, Major depressive disorder, recurrent episode, moderate F33.1 and Illness anxiety disorder F45.21 [place] [id number] [address] 7745 Jul, Major depressive disorder, recurrent episode, moderate F33.1 and Illness anxiety disorder F45.21 [place] [id number] [place] [address] 54276- 5381 Jul, Major depressive disorder, recurrent episode, moderate F33.1 and Illness anxiety disorder F45.21 [place] [id number] [place] [address] 21419- 4353 Jun, Major depressive disorder, recurrent episode, moderate F33.1 and Illness anxiety disorder F45.21 [place] [place] [id number] [place] [address] 06652- 3450 Jun, Major depressive disorder, recurrent episode, moderate F33.1 and Illness anxiety disorder F45.21 [place] [id number] [place] [address] 58537- 1926 May, Major depressive disorder, recurrent episode, moderate F33.1 and Illness anxiety disorder F45.21 [place] [id number] [place] [address] 97728- 9154 May, Major depressive disorder, recurrent episode, moderate F33.1 and Illness anxiety disorder F45.21 [place] [address] [place] [address] 80036- 1336 Apr, [place] [address] [place] [address] 01504- 2238 Apr, Major depressive disorder, recurrent episode, moderate F33.1 and Illness anxiety disorder F45.21 [place] [address] [place] [address] 46547- 9800 Mar, Major depressive disorder, recurrent episode, moderate F33.1 and Illness anxiety disorder F45.21 [place] [address] [place] [address] 76670- 3971 Mar, Major depressive disorder, recurrent episode, moderate F33.1 [place] [id number] [place] [address] 246067- 0490 Feb, Major depressive disorder, recurrent episode, moderate F33.1 [facility] [id number] [address] Jan, Major depressive disorder, recurrent episode, moderate F33.1 [facility] [address] [address] Jan, Major depressive disorder, recurrent episode, moderate F33.1 [facility] [address] [address] Dec, Major depressive disorder, recurrent episode, moderate F33.1 [facility] [address] [address] Dec, Major depressive disorder, recurrent episode, moderate F33.1 [facility] [address], [place] [address]- 5786 Jul, Major depressive disorder, recurrent episode, moderate F33.1 [facility] [id number] [address] 1991 Jul, Major depressive disorder, recurrent episode, moderate F33.1 [facility] [address] [place] [address]- 7865 Jun, Major depressive disorder, recurrent episode, moderate F33.1 [facility] [address], [place] [address]- 8778 May, Major depressive disorder, recurrent episode, moderate F33.1 [facility] [id number] [address]- 9101 Apr, Major depressive disorder, recurrent episode, moderate F33.1 [facility] [id number] [address]286 Mar, [facility] [id number] [address]76 13 Feb, 2016 Major depressive disorder, recurrent episode, moderate F33.1 [facility] [id number], [place] [address]- 5263 Jan, Major depressive disorder, recurrent episode, moderate F33.1 [facility] [address] [place] [address]- 9866 Dec, Major depressive disorder, recurrent episode, moderate F33.1 [facility] [address] [place] [address]- 9946 Nov, Major depressive disorder, recurrent episode, moderate F33.1 [facility] [id number] [address]- 1807 Jul, Major depressive disorder, recurrent episode, moderate F33.1 [facility] [address] 4776 Jan, Major depressive disorder, recurrent episode, moderate 296.32 [facility] [address], [place] [address]- 9461 Jan, Major depressive disorder, recurrent episode, moderate 296.32 [facility] [address], [place] [address]- 5327 Dec, Major depressive disorder, recurrent episode, moderate 296.32 [facility] [address] [place] [address]- 3338 Dec, Major depressive disorder, recurrent episode, moderate 296.32 [facility] [address] 5714 Nov, Major depressive disorder, recurrent episode, moderate 296.32 [facility] [id number] 9086 October, Major depressive disorder, recurrent episode, moderate 296.32 [facility] [address] 9736 Sep, [facility] [id number] [address]57 Sep, [facility] [place] [facility] [address] [id number] [place] [address]- 9446 Aug, [facility] [place] [facility] [address] [id number] [place] [address]- 7549 Aug, [facility] [place] [facility] [address] [id number] [place] [address]- 2665 Aug, [facility] [place] [facility] [address] [id number] [place] [address]- 6878 Aug, [facility] [place] [facility] [address] [id number] [place] [address]- 1293 Aug, [facility] [place] [facility] [address] [id number] [place] [address]- 1261 Jul, [facility] [place] [facility] [address] [id number] [place] [address]- 6199 Jul, [facility] [place] [facility] [address] [id number] [place] [address]- 0931 Jul, [facility] [place] [facility] [address] [id number] [place] [address]- 3698 Jul, [facility] [place] [facility] [address] [facility] [id number] [place] [address]- 6909 Jun, [facility] [place] [facility] [address] [id number] [place] [address]- 6809 Jun, [facility] [place] [facility] [address] [id number], [place] [address]- 4013 May, [facility] [place] [facility] [address] [id number] [place] [address]- 6839 May, [facility] [place] [facility] [address] [id number] [place] [address]- 1216 Apr, [facility] [place] [facility] [address] [id number] [place] [address]- 2380 Apr, [facility] [place] [facility] [address] [id number] [address]- 8838 Mar, [facility] [place] [facility] [address] [id number] [place] [address]- 9094 Mar, [facility] [place] [facility] [address] [id number] [place] [address]- 0989 Mar, [facility] [place] [facility] [address] [id number] [place] [address]6 Mar, [facility] [place] [facility] [address] [id number] [place] [address]- 4003 Mar, [facility] [place] [facility] [address] [id number] [place] [address]- 1463 Mar, [facility] [place] [facility] [address] [id number] [place] [address]- 5512 Mar, [facility] [place] [facility] [address] [facility] [id number] [place] [address]- 2985 Mar, [facility] [place] [facility] [address] [id number] [place] [address]- 9516 Feb, [facility] [place] [facility] [address] [id number] [place] [address]- 7937 Feb, [facility] [place] [facility] [address] [facility] [id number] [place] [address]- 3718 Feb, [facility] [place] [facility] [address] [id number] [place] [address]- 7647 Feb, [facility] [place] [facility] [address] [id number], [place] [address]- 6868 Jan, [facility] [place] [facility] [address] [id number] [place] 9041 Jan, [facility] [place] [facility] [address] [facility] [id number] [place] 7215 Dec, [facility] [place] [facility] [address] [facility] [id number] [place] [address]- 7081 Dec, [facility] [place] [facility] [address] [id number] [place] [address]- 5611 Nov, [facility] [place] [facility] [address] [id number] [place] [address]- 8875 Nov, [facility] [place] [facility] [address] [id number] [place] [address]- 0986 October, [facility] [place] [facility] [address] [id number] [place] [address]- 6937 October, [facility] [place] [facility] [address] [id number] [place] [address]- 8666 Sep, [facility] [place] [facility] [address] [id number] [place] [address]- 4805 Sep, [facility] [place] [facility] [address] [id number] [place] [address]- 8187 Aug, [facility] [place] [facility] [address] [id number] [place] [address]- 6797 Aug, [facility] [place] [facility] [address] [id number] [place] [address]- 8219 Jul, [facility] [place] [facility] [address] [id number] [place] [address]- 1038 Jul, [facility] [place] [facility] [address] [id number] [place] [address]- 8742 Jun, [facility] [place] [facility] [address] [id number] [place] [address]- 0868 Jun, [facility] [place] [facility] [address] [id number] [place] [address]- 6872 Mar, [facility] [place] [facility] [address] [id number] [place] [address]- 4932 Mar, [facility] [place] [facility] [address] [id number] [place] [address]- 3739 Mar, [facility] [place] [facility] [address] [id number] [place] [address]- 9838 Mar, [facility] [address] [facility] [id number] [place] [address]- 2546 Mar, [facility] [address] [facility] [id number] [place] [address]- 5966 May, IMMUNIZATIONS No Known Immunizations SOCIAL HISTORY Never Assessed REASON FOR VISIT continuity of care PLAN OF CARE VITAL SIGNS MEDICATIONS Unknown [...]
--- OUTSIDE RECORDS SUMMARY | 2018-08-03 05:41 | XMS REPORT ---
Author Author YON CONSTANTINO Organization [facility] Address [address] [place] [address] Care Team Providers Care Engineering Manager Name Role Phone YON CONSTANTINO Unavailable PROBLEMS Type Condition ICD9-CM Code [id number] Code Onset Dates Condition Status SNOMED Code Problem Major depressive disorder, recurrent episode, moderate F33.1 Active 979556617 Problem Post-traumatic stress disorder, chronic F43.12 Active 662834710 Problem High risk medication use Z79.899 Active 675083411335885 Problem Illness anxiety disorder F45.21 Active 41157200677956731 Problem Acute pharyngitis 462 Active 392556356 Problem Personality disorder in adult F60.9 Active 03230994 Problem Paranoid personality disorder F60.0 Active 39243670 ALLERGIES Substance Reaction Event Type Date Status Latex Unknown Non Drug Allergy Nov, Active Sulfa Drugs Unknown Non Drug Allergy Nov, Active ENCOUNTERS Encounter Location Date Diagnosis [facility] [id number] [place] [address] 71019- 2234 Mar, [facility] [id number] [place] [address] 29515- 3400 Feb, [facility] [id number] [place] [address] 70312- 5493 Jan, [facility] [id number] [place] [address] 37296- 0053 Jan, [facility] [id number] [place] [address] 00092- 9594 Jan, [facility] [id number] [place] [address] 41606- 1255 Jan, Major depressive disorder, recurrent episode, moderate F33.1 ; Paranoid personality disorder F60.0 and Illness anxiety disorder 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 [facility] [address] [address] Jan, Major depressive disorder, recurrent episode, moderate F33.1 ; Paranoid personality disorder F60.0 and Illness anxiety disorder F45.21 [facility] [address] [address] Dec, Illness anxiety disorder F45.21 ; Post-traumatic stress disorder, chronic F43.12 ; Paranoid personality disorder F60.0 ; High risk medication use Z79.899 and Personality disorder in adult F60.9 [facility] [id number] [place] [address] 23906- 5166 Dec, Major depressive disorder, recurrent episode, moderate F33.1 ; Paranoid personality disorder F60.0 and Illness anxiety disorder 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 [facility] [id number] [place] [address] 23059- 3668 Dec, Major depressive disorder, recurrent episode, moderate F33.1 ; Paranoid personality disorder F60.0 and Illness anxiety disorder F45.21 [facility] [id number] [place] [address] 58637- 7434 Dec, [facility] [id number] [place] [address] 35723- 2979 Nov, [facility] [id number] [place] [address] 67403- 7213 Nov, Major depressive disorder, recurrent episode, moderate F33.1 ; Paranoid personality disorder F60.0 and Illness anxiety disorder 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 [facility] [id number] [place] [address] 40943- 4260 Nov, [facility] [id number] [place] [address] 82428- 2539 Nov, [facility] [address] [address] 4056 Nov, Major depressive disorder, recurrent episode, moderate F33.1 ; Paranoid personality disorder F60.0 and Illness anxiety disorder 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 [place] [facility] [address] [address] 6467 Nov, [place] [facility] [id number] [place] [address] 91902- 9328 Nov, [place] [facility] [id number] [place] [address] 24548- 6369 October, 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 ; Post-traumatic stress disorder, chronic F43.12 ; Paranoid personality disorder F60.0 ; High risk medication use Z79.899 and Personality disorder in adult F60.9 [facility] [facility] [id number] [place] [address] 06726- 8366 October, Major depressive disorder, recurrent episode, moderate F33.1 ; Paranoid personality disorder F60.0 and Illness anxiety disorder 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 [facility] [facility] [id number] [place] [address] 65011- 5443 October, Major depressive disorder, recurrent episode, moderate F33.1 ; Paranoid personality disorder F60.0 and Illness anxiety disorder F45.21 [facility] [facility] [id number] [place] [address] 91141- 2231 Sep, Major depressive disorder, recurrent episode, moderate F33.1 ; Paranoid personality disorder F60.0 and Illness anxiety disorder F45.21 [facility] [id number] [place] [address] 77512- 5334 Sep, Major depressive disorder, recurrent episode, moderate F33.1 and Illness anxiety disorder F45.21 [facility] [id number] [place] [address] 94578- 6365 Aug, Major depressive disorder, recurrent episode, moderate F33.1 and Illness anxiety disorder F45.21 [facility] [id number] [place] [address] 37682- 3744 Jul, Major depressive disorder, recurrent episode, moderate F33.1 and Illness anxiety disorder F45.21 [facility] [address] [address]- 1832 Jul, Major depressive disorder, recurrent episode, moderate F33.1 and Illness anxiety disorder F45.21 [facility] [address] [address]- 2780 Jun, Major depressive disorder, recurrent episode, moderate F33.1 and Illness anxiety disorder F45.21 [facility] [facility] [id number] [place] [address] 70985- 7033 Jun, Major depressive disorder, recurrent episode, moderate F33.1 and Illness anxiety disorder F45.21 [facility] [facility] [id number] [place] [address] 49115- 8381 May, Major depressive disorder, recurrent episode, moderate F33.1 and Illness anxiety disorder F45.21 [facility] [id number] [place] [address] 60213- 2271 May, Major depressive disorder, recurrent episode, moderate F33.1 and Illness anxiety disorder F45.21 [place] [id number] [place] [address] 46792- 1744 Apr, [place] [facility] [id number] [place] [address] 98843- 1382 Apr, Major depressive disorder, recurrent episode, moderate F33.1 and Illness anxiety disorder F45.21 [place] [address] [address]- 8337 Mar, Major depressive disorder, recurrent episode, moderate F33.1 and Illness anxiety disorder F45.21 [place] [id number] [place] [address] 97371- 1799 Mar, Major depressive disorder, recurrent episode, moderate F33.1 [place] [facility] [id number] [place] [address] 82577- 1769 Feb, Major depressive disorder, recurrent episode, moderate F33.1 [place] [facility] [id number] [address]- 6256 Jan, Major depressive disorder, recurrent episode, moderate F33.1 [facility] [address] Jan, Major depressive disorder, recurrent episode, moderate F33.1 [facility] [id number]- [address]66 Dec, Major depressive disorder, recurrent episode, moderate F33.1 [facility] [id number] 4046 Dec, Major depressive disorder, recurrent episode, moderate F33.1 [facility] [id number] 2416 Jul, Major depressive disorder, recurrent episode, moderate F33.1 [facility] [address] [address]- 9196 Jul, Major depressive disorder, recurrent episode, moderate F33.1 [facility] [id number] [address]- 7238 Jun, Major depressive disorder, recurrent episode, moderate F33.1 [facility] [id number] 8726 May, Major depressive disorder, recurrent episode, moderate F33.1 [facility] [address] [address]- 1546 Apr, Major depressive disorder, recurrent episode, moderate F33.1 [facility] [id number]896 Mar, [facility] [id number] 8566 Feb, Major depressive disorder, recurrent episode, moderate F33.1 [facility] [id number] 4946 Jan, Major depressive disorder, recurrent episode, moderate F33.1 [facility] [address] [address]- 5527 Dec, Major depressive disorder, recurrent episode, moderate F33.1 [facility] [address] [address]- 0786 Nov, Major depressive disorder, recurrent episode, moderate F33.1 [facility] [address] [address]- 2096 Jul, Major depressive disorder, recurrent episode, moderate F33.1 [facility] [address] 7340 Jan, Major depressive disorder, recurrent episode, moderate 296.32 [facility] [address] 5141 Jan, Major depressive disorder, recurrent episode, moderate 296.32 [facility] [address] 4287 Dec, Major depressive disorder, recurrent episode, moderate 296.32 [facility] [address] 2548 Dec, Major depressive disorder, recurrent episode, moderate 296.32 [facility] [address] 9780 Nov, Major depressive disorder, recurrent episode, moderate 296.32 [facility] [address] [address]- 9694 October, Major depressive disorder, recurrent episode, moderate 296.32 [facility] [address] [address]- 9276 Sep, [facility] [address] [address]- 5255 Sep, [facility] [address] [address]- 1149 Aug, [facility] [address] [facility] [id number] [place] [address]- 4014 16 Aug, 2014 [facility] [place] [facility] [address] [id number] [place] [address]- 7960 Aug, [facility] [place] [facility] [address] [id number] [place] 2360 Aug, [facility] [place] [facility] [address] [id number] [place] [address]- 5065 Aug, [facility] [place] [facility] [address] [id number] [place] [address]- 2682 Jul, 2014 [facility] [place] [facility] [address] [id number] [place] [address]- 1188 Jul, 2014 [facility] [place] [facility] [address] [facility] [id number] [place] [address]- 4716 Jul, [facility] [place] [facility] [address] [facility] [id number] [place] [address]- 9708 Jul, [facility] [place] [facility] [address] [id number] [place] [address]- 5827 Jun, [facility] [place] [facility] [address] [facility] [id number] [place] [address]- 1044 Jun, [facility] [place] [facility] [address] [facility] [id number] [place] [address]- 2438 May, [facility] [place] [facility] [address] [id number] [place] [address]- 2614 May, [facility] [place] [facility] [address] [id number] [place] [address]- 8215 Apr, [facility] [place] [facility] [address] [id number] [place] [address]- 2990 Apr, [facility] [place] [facility] [address] [id number] [place] [address]- 5323 Mar, [facility] [place] [facility] [address] [id number] [place] [address]- 6514 Mar, [facility] [place] [facility] [address] [id number] [place] 5053 Mar, [facility] [place] [facility] [address] [id number] [place] [address]- 5026 Mar, [facility] [place] [facility] [address] [id number] [place] [address]- 5697 Mar, [facility] [place] [facility] [address] [id number] [place] [address]- 2660 Mar, [facility] [place] [facility] [address] [id number] [place] 4037 Mar, [facility] [place] [facility] [address] [id number] [place] [address]- 1131 Mar, [facility] [place] [facility] [address] [id number] [place] [address]- 7276 Feb, [facility] [place] [facility] [address] [id number] [place] [address]- 9135 Feb, [facility] [place] [facility] [address] [id number] [place] [address]- 3399 Feb, [facility] [place] [facility] [address] [id number] [place] [address]- 9752 Feb, [facility] [place] [facility] [address] [id number] [place] [address]- 1180 Jan, [facility] [place] [facility] [address] [id number] [address]- 5379 Jan, [facility] [place] [facility] [address] [id number] [place] [address]- 1205 Dec, [facility] [place] [facility] [address] [id number] [place] [address]- 6900 Dec, [facility] [place] [facility] [address] [id number] [place] [address]- 6095 Nov, [facility] [place] [facility] [address] [id number] [place] [address]- 4808 Nov, [facility] [address] [id number] [place] [address]- 4515 October, [facility] [place] [facility] [address] [id number] [place] [address]- 8633 October, [facility] [place] [facility] [address] [id number] [place] [address]- 9202 Sep, [facility] [place] [facility] [address] [id number] [place] [address]- 6590 Sep, [facility] [place] [facility] [address] [id number] [place] [address]- 6535 Aug, [facility] [place] [facility] [address] [id number] [place] [address]- 7222 Aug, [facility] [place] [facility] [address] [id number] [place] [address]- 2892 Jul, [facility] [place] [facility] [address] [id number] [place] [address]- 8700 Jul, [facility] [place] [facility] [address] [id number] [place] [address]- 2728 Jun, [facility] [place] [facility] [address] [id number] [place] [address]- 5083 Jun, [facility] [place] [facility] [address] [id number] [place] [address]- 7665 Mar, [facility] [place] [facility] [address] [id number] [place] [address]- 4403 Mar, [facility] [place] [facility] [address] [id number] [place] [address]- 9392 Mar, [facility] [place] [facility] [address] [id number] [place] [address]- 5196 Mar, [facility] [place] [facility] [address] [id number] [place] 4466 Mar, [facility] [address] [facility] [id number] [place] [address]- 6665 May, IMMUNIZATIONS No Known Immunizations SOCIAL HISTORY Never Assessed REASON FOR VISIT f/u PLAN OF CARE Activity Details Follow Up 2 Weeks Reason: VITAL SIGNS MEDICATIONS Medication Instructions Dosage Frequency Start Date End Date Duration Status cyclobenzaprine 10 mg take 1 tablet (10 mg) by oral route 3 times per day Mar, Active Entyvio 300 MG Intravenous once every 2 months Active Calcium Citrate + D 250-200 MG-UNIT Orally Twice a day 1 tablet 12h Active PredniSONE 5 MG Orally Once a day 1 tablet 24h Active Grapeseed Extract 500-50 MG Orally 2 times a day 12h Active Lipitor 20 mg 1 tablet by Oral route 1 time per day Mar, Active Diazepam 10 MG Orally 4 times a day 1 tablet 6h Mar, Active MiraLax 17 gram/dose take 8.5 g mixed with 8 oz. water or juice by Oral route 1 time per day Mar, Not-Taking Metoprolol Tartrate 25 mg Orally Twice a day 1/2 tablet 12h Mar, Active trazodone 100 mg 2 tablets Mar, Active Effexor XR 150 mg take 1 capsule by Oral route 2 times per day Mar, Active Systane 0.4-0.3 % Ophthalmic 24 time(s) a day 1 drop into affected eye as needed Active B-12 Compliance Injection 1000 MCG/ML Injection once monthly 1 ml Active ProAir HFA 90 mcg/actuation inhale 2 puffs by Inhalation route every 4 hours as needed PRN shortness of breath/cough Mar, Active Claritin-D 12 Hour 5-120 MG Orally 2 times a day 1 tablet 12h Active Seroquel 100 mg take 1 tablet (100 mg) by oral route 2 times per day Mar, Active Hydrocodone-Acetaminophen 10-325 MG Orally 4 times a day 1 tablet 6h Active Advair Diskus 250-50 MCG/DOSE Inhalation Twice a day 1 puff 12h Active Generlac 10 GM/15ML Orally PRN 15 ml Active Savella 100 MG Orally Once a day 1 tablet 24h Mar, Active Valerian - Orally Once a day 2 capsules 24h Active Amoxicillin 500 mg 1 capsule by Oral route 3 times per day for 10 days Mar, Not-Taking Melatonin 5 MG Orally Once a day 1 tablet at bedtime as needed with food 24h Active Protonix 40 MG Orally Once a day 1 tablet 24h Active Oxygen Active Tramadol HCl 50 mg Orally 3 times a day 1 to 2 tablet as needed 8h Active Nexium 40 mg take 1 capsule (40 mg) by oral route once daily Mar, Not-Taking RESULTS No Results PROCEDURES Procedure Date Ordered Result Body Site [facility] VISIT MENTAL HEALTH ESTAB PT November 16, 2017 Psychotherapy, patient &/family, 30 minutes, established patient November 16, 2017 INSTRUCTIONS MEDICATIONS ADMINISTERED No Known Medications [...]
--- OUTSIDE RECORDS SUMMARY | 2018-08-03 05:41 | XMS REPORT ---
Author Author HAMMAD RUIZ [facility] [address] Address [address] [place] [address] Care Team Providers Care Radio Operator Ground Name Role Phone JOSEPH, DAWMADISON Unavailable PROBLEMS Type Condition ICD9-CM Code BGF27-NP Code Onset Dates Condition Status SNOMED Code Problem Major depressive disorder, recurrent episode, moderate F33.1 Active 093875381 Problem Post-traumatic stress disorder, chronic F43.12 Active 161166358 Problem High risk medication use Z79.899 Active 904373246262758 Problem Illness anxiety disorder F45.21 Active 95035558448686394 Problem Acute pharyngitis 462 Active 295573267 Problem Personality disorder in adult F60.9 Active 84527859 Problem Paranoid personality disorder F60.0 Active 82320573 ALLERGIES Substance Reaction Event Type Date Status Sulfa Drugs Unknown Non Drug Allergy October, Active Latex Unknown Non Drug Allergy October, Active ENCOUNTERS Encounter Location Date Diagnosis [facility], [place] [id number] [place] [address] 25051- 5332 Mar, [facility], [place] [id number] [place] [address] 94896- 5174 Feb, [facility], [place] [id number] [place] [address] 20955- 4974 Jan, [facility], [place] [id number] [place] [address] 44082- 3397 Jan, [facility], [place] [id number] [place] [address] 00096- 1284 Jan, [facility], [place] [address] [place] [address] 85280- 2004 Jan, Major depressive disorder, recurrent episode, moderate F33.1 ; Paranoid personality disorder F60.0 and 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 [facility], [place] [address], [place] [address] Jan, Major depressive disorder, recurrent episode, moderate F33.1 ; Paranoid personality disorder F60.0 and Illness anxiety disorder 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 [facility], [place] [address], [place] [address] Dec, Illness anxiety disorder 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 ; Post-traumatic stress disorder, chronic F43.12 ; Paranoid personality disorder F60.0 ; High risk medication use Z79.899 and Personality disorder in adult F60.9 [facility], [place] [address] [place] [address] 59726- 6449 Dec, Major depressive disorder, recurrent episode, moderate F33.1 ; Paranoid personality disorder F60.0 and 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 [facility], [place] [address] [place] [address] 71321- 5550 Dec, Major depressive disorder, recurrent episode, moderate F33.1 ; Paranoid personality disorder F60.0 and Illness anxiety disorder 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 [facility], [place] [address] [place] [address] 42510- 6418 Dec, [facility], [place] [address], [place] [address] 3145 Nov, [facility], [place] [address] [address] 4[address] Nov, Major depressive disorder, recurrent episode, moderate F33.1 ; Paranoid personality disorder F60.0 and Illness anxiety disorder 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 [facility], [place] [address], [place] [address] Nov, [facility], [place] [address] [place] [address] 59106- 8814 Nov, [facility], [place] [address], [place] [address] 5904 Nov, Major depressive disorder, recurrent episode, moderate F33.1 ; Paranoid personality disorder F60.0 and 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 [place] [address] [address] 24[address] Nov, [facility] [id number] [place] [address] 35172- 8439 Nov, [place] [address] [place] [address] 44383- 0595 October, 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 ; Post-traumatic stress disorder, chronic F43.12 ; Paranoid personality disorder F60.0 ; High risk medication use Z79.899 and Personality disorder in adult F60.9 [facility] [facility] [id number] [place] [address] 79967- 5111 October, Major depressive disorder, recurrent episode, moderate F33.1 ; Paranoid personality disorder F60.0 and Illness anxiety disorder 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 [place] [address] [place] [address] 52845- 7960 October, Major depressive disorder, recurrent episode, moderate F33.1 ; Paranoid personality disorder F60.0 and Illness anxiety disorder 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 [place] [address] [place] [address] 49300- 9705 Sep, Major depressive disorder, recurrent episode, moderate F33.1 ; Paranoid personality disorder F60.0 and Illness anxiety disorder F45.21 [place] [address] [place] [address] 30742- 9397 Sep, Major depressive disorder, recurrent episode, moderate F33.1 and Illness anxiety disorder 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 [place] [address] [place] [address] 19429- 8250 Aug, Major depressive disorder, recurrent episode, moderate F33.1 and Illness anxiety disorder F45.21 [place] [address] [place] [address] 39707- 7393 Jul, Major depressive disorder, recurrent episode, moderate F33.1 and Illness anxiety disorder F45.21 [facility], [place] [address] [address]- 7311 14 Jul, 2017 Major depressive disorder, recurrent episode, moderate F33.1 and Illness anxiety disorder F45.21 [facility], [place] [id number] [place] [address] 20967- 4814 Jun, Major depressive disorder, recurrent episode, moderate F33.1 and Illness anxiety disorder F45.21 [place] [id number] [place] [address] 90227- 1592 Jun, Major depressive disorder, recurrent episode, moderate F33.1 and Illness anxiety disorder F45.21 [place] [id number] [place] [address] 28152- 1779 May, Major depressive disorder, recurrent episode, moderate F33.1 and Illness anxiety disorder F45.21 [place] [id number] [place] [address] 27817- 7512 May, Major depressive disorder, recurrent episode, moderate F33.1 and Illness anxiety disorder F45.21 [place] [id number] [place] [address] 35596- 5121 Apr, [place] [id number] [place] [address] 21681- 9858 Apr, Major depressive disorder, recurrent episode, moderate F33.1 and Illness anxiety disorder F45.21 [place] [id number] [place] [address] 35956- 5792 Mar, Major depressive disorder, recurrent episode, moderate F33.1 and Illness anxiety disorder F45.21 [place] [id number] [place] [address] 00924- 1908 Mar, Major depressive disorder, recurrent episode, moderate F33.1 [place] [address] [place] [address] 98564- 0293 Feb, Major depressive disorder, recurrent episode, moderate F33.1 [place] [id number] [address]- 2117 Jan, Major depressive disorder, recurrent episode, moderate F33.1 [facility], [place] [address] Jan, Major depressive disorder, recurrent episode, moderate F33.1 [facility], [place] [id number] [address]- 5066 Dec, Major depressive disorder, recurrent episode, moderate F33.1 [facility], [place] [id number] [address]- 6756 Dec, Major depressive disorder, recurrent episode, moderate F33.1 [facility], [place] [id number] [address]- 1006 Jul, Major depressive disorder, recurrent episode, moderate F33.1 [facility], [place] [address], [place] [address]- 1086 Jul, Major depressive disorder, recurrent episode, moderate F33.1 [facility], [place] [address], [place] [address]- 1345 Jun, Major depressive disorder, recurrent episode, moderate F33.1 [facility], [place] [id number] [address]- 1266 May, Major depressive disorder, recurrent episode, moderate F33.1 [facility], [place] [address], [place] [address]- 2676 Apr, Major depressive disorder, recurrent episode, moderate F33.1 [facility], [place] [id number] [address]- 0916 Mar, [facility], [place] [id number] [address]- 1166 Feb, Major depressive disorder, recurrent episode, moderate F33.1 [facility], [place] [id number] 0596 Jan, Major depressive disorder, recurrent episode, moderate F33.1 [facility], [place] [address], [place] [address]- 1187 Dec, Major depressive disorder, recurrent episode, moderate F33.1 [facility], [place] [address], [place] [address]- 2296 Nov, Major depressive disorder, recurrent episode, moderate F33.1 [facility], [place] [address], [place] [address]- 8356 Jul, Major depressive disorder, recurrent episode, moderate F33.1 [facility], [place] [address] 7046 Jan, Major depressive disorder, recurrent episode, moderate 296.32 [facility], [place] [address] 9616 Jan, Major depressive disorder, recurrent episode, moderate 296.32 [facility], [place] [address] 8363 Dec, Major depressive disorder, recurrent episode, moderate 296.32 [facility], [place] [address] 3472 Dec, Major depressive disorder, recurrent episode, moderate 296.32 [facility], [place] [address]- 9929 Nov, Major depressive disorder, recurrent episode, moderate 296.32 [facility], [place] [address], [place] [address]- 1117 October, Major depressive disorder, recurrent episode, moderate 296.32 [facility], [place] [address], [place] [address]- 5306 Sep, [facility], [place] [address] 0393 Sep, [facility], [place] [id number] [address]- 5541 Aug, [facility], [place] [address] [address]- 7318 16 Aug, 2014 [facility] [place] [facility] [address] [id number] [place] [address]- 2104 Aug, [facility] [place] [facility] [address] [id number] [place] [address]- 8725 Aug, [facility] [place] [facility] [address] [id number] [place] [address]- 4216 Aug, [facility] [place] [facility] [address] [id number] [place] [address]- 0226 Jul, 2014 [facility] [place] [facility] [address] [id number] [place] [address]- 1135 Jul, 2014 [facility] [place] [facility] [address] [facility] [id number] [place] [address]- 1201 Jul, [facility] [place] [facility] [address] [facility] [id number] [place] [address]- 8824 Jul, [facility] [place] [facility] [address] [id number] [place] [address]- 3001 Jun, [facility] [place] [facility] [address] [facility] [id number] [place] [address]- 0923 Jun, [facility] [place] [facility] [address] [facility] [id number] [place] [address]- 9701 May, [facility] [place] [facility] [address] [facility] [id number] [place] [address]- 6240 May, [facility] [place] [facility] [address] [id number] [place] [address]- 8112 Apr, [facility] [place] [facility] [address] [id number] [place] [address]- 3527 Apr, [facility] [place] [facility] [address] [facility] [id number] [place] [address]- 9680 Mar, [facility] [place] [facility] [address] [id number] [place] [address]- 5451 Mar, [facility] [place] [facility] [address] [id number] [place] [address]- 6912 Mar, [facility] [place] [facility] [address] [id number] [place] [address]- 1091 Mar, [facility] [place] [facility] [address] [id number] [place] [address]- 4836 Mar, [facility] [place] [facility] [address] [id number] [place] [address]- 6053 Mar, [facility] [place] [facility] [address] [id number] [place] 3673 Mar, [facility] [place] [facility] [address] [id number] [place] [address]- 9347 Mar, [facility] [place] [facility] [address] [id number] [place] [address]- 4191 Feb, [facility] [place] [facility] [address] [id number] [place] [address]- 0308 Feb, [facility] [place] [facility] [address] [id number] [place] [address]- 4686 Feb, [facility] [place] [facility] [address] [id number] [place] [address]- 1526 Feb, [facility] [place] [facility] [address] [id number] [address]- 6760 Jan, [facility] [place] [facility] [address] [id number], [place] [address]- 5845 Jan, [facility] [place] [facility] [address] [id number] [place] [address]- 4835 Dec, [facility] [place] [facility] [address] [id number] [address]- 3575 Dec, [facility] [place] [facility] [address] [id number] [place] [address]- 3586 Nov, [facility] [place] [facility] [address] [id number] [place] [address]- 2946 Nov, [facility] [place] [facility] [address] [id number] [place] [address]- 8906 October, [facility] [place] [facility] [address] [id number] [place] [address]476 October, [facility] [place] [facility] [address] [id number] [place] [address]- 2764 Sep, [facility] [place] [facility] [address] [id number] [place] [address]- 7647 Sep, [facility] [place] [facility] [address] [id number] [place] [address]- 7443 Aug, [facility] [place] [facility] [address] [id number] [place] [address]- 9002 Aug, [facility] [place] [facility] [address] [id number] [place] [address]- 1670 Jul, [facility] [place] [facility] [address] [id number] [place] [address]- 5401 Jul, [facility] [place] [facility] [address] [facility] [id number] [place] [address]- 4312 Jun, [facility] [place] [facility] [address] [facility] [id number] [place] [address]- 7551 Jun, [facility] [place] [facility] [address] [id number] [place] [address]- 8149 Mar, [facility] [place] [facility] [address] [id number] [place] 9274 Mar, [facility] [place] [facility] [address] [id number] [place] [address]- 0681 Mar, [facility] [place] [facility] [address] [id number] [place] [address]- 2356 Mar, [facility] [place] [facility] [address] [id number] [place] [address]- 9206 Mar, [facility] [place] [address] [facility] [id number] [place] [address]- 2130 May, IMMUNIZATIONS No Known Immunizations SOCIAL HISTORY Never Assessed REASON FOR VISIT intake PLAN OF CARE Activity Details Follow Up 6 Weeks Reason: VITAL SIGNS Height 69.5 in 2017-10-27 Weight 205.0 lbs 2017-10-27 Heart Rate 94 bpm 2017-10-27 Respiratory Rate 22 2017-10-27 BMI 29.84 kg/m2 2017-10-27 Blood pressure systolic 118 mmHg 2017-10-27 Blood pressure diastolic 76 mmHg 2017-10-27 MEDICATIONS Medication Instructions Dosage Frequency Start Date End Date Duration Status cyclobenzaprine 10 mg take 1 tablet (10 mg) by oral route 3 times per day Mar, Active Advair Diskus 250-50 MCG/DOSE Inhalation Twice a day 1 puff 12h Active Melatonin 5 MG Orally Once a day 1 tablet at bedtime as needed with food 24h Active ProAir HFA 90 mcg/actuation inhale 2 puffs by Inhalation route every 4 hours as needed PRN shortness of breath/cough Mar, Active Systane 0.4-0.3 % Ophthalmic 24 time(s) a day 1 drop into affected eye as needed Active trazodone 100 mg 2 tablets Mar, Active Diazepam 10 MG Orally 4 times a day 1 tablet 6h Mar, Active Nexium 40 mg take 1 capsule (40 mg) by oral route once daily Mar, Not-Taking Metoprolol Tartrate 25 mg Orally Twice a day 1/2 tablet 12h Mar, Active Seroquel 100 mg take 1 tablet (100 mg) by oral route 2 times per day Mar, Active Effexor XR 150 mg take 1 capsule by Oral route 2 times per day Mar, Active Valerian - Orally Once a day 2 capsules 24h Active Tramadol HCl 50 mg Orally 3 times a day 1 to 2 tablet as needed 8h Active Protonix 40 MG Orally Once a day 1 tablet 24h Active Claritin-D 12 Hour 5-120 MG Orally 2 times a day 1 tablet 12h Active Lipitor 20 mg 1 tablet by Oral route 1 time per day Mar, Active Oxygen Active Entyvio 300 MG Intravenous once every 2 months Active Generlac 10 GM/15ML Orally PRN 15 ml Active Savella 100 MG Orally Once a day 1 tablet 24h Mar, Active Grapeseed Extract 500-50 MG Orally 2 times a day 12h Active MiraLax 17 gram/dose take 8.5 g mixed with 8 oz. water or juice by Oral route 1 time per day Mar, Not-Taking Calcium Citrate + D 250-200 MG-UNIT Orally Twice a day 1 tablet 12h Active PredniSONE 5 MG Orally Once a day 1 tablet 24h Active Hydrocodone-Acetaminophen 10-325 MG Orally 4 times a day 1 tablet 6h Active B-12 Compliance Injection 1000 MCG/ML Injection once monthly 1 ml Active Amoxicillin 500 mg 1 capsule by Oral route 3 times per day for 10 days Mar, Not-Taking RESULTS No Results PROCEDURES Procedure Date Ordered Result Body Site [facility] VISIT NEW PATIENT October 27, 2017 INSTRUCTIONS MEDICATIONS ADMINISTERED No Known Medications [...]
--- OUTSIDE RECORDS SUMMARY | 2018-08-03 05:42 | XMS REPORT ---
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 Active [id number] Problem Acute pharyngitis 462 Active 034094995 Problem Personality disorder in adult F60.9 Active 18379950 Problem Paranoid personality disorder F60.0 Active 88341929 ALLERGIES No Information ENCOUNTERS Encounter Location Date Diagnosis [facility] [id number] [place] [address] 93906- 5181 Mar, [facility] [id number] [place] [address] 74072- 6113 Feb, [facility] [id number] [place] [address] 19901- 3958 Jan, [facility] [id number] [place] [address] 05227- 6567 Jan, [facility] [id number] [place] [address] 24793- 2344 Jan, [facility] [id number] [place] [address] 12515- 2399 Jan, Major depressive disorder, recurrent episode, moderate F33.1 ; Paranoid personality disorder F60.0 and 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 [facility] [id number] [place] [address] 06723- 2650 Jan, Major depressive disorder, recurrent episode, moderate F33.1 ; Paranoid personality disorder F60.0 and 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 [facility] [address] [address] Dec, Illness anxiety disorder 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 ; Post-traumatic stress disorder, chronic F43.12 ; Paranoid personality disorder F60.0 ; High risk medication use Z79.899 and Personality disorder in adult F60.9 [facility] [id number] [address] Dec, Major depressive disorder, recurrent episode, moderate F33.1 ; Paranoid personality disorder F60.0 and Illness anxiety disorder 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 [facility] [address] [address] Dec, Major depressive disorder, recurrent episode, moderate F33.1 ; Paranoid personality disorder F60.0 and Illness anxiety disorder F45.21 [facility] [address] [address] 6267 Dec, [facility] [id number] [address] 27[address] Nov, [facility] [address] [address]21 Nov, Major depressive disorder, recurrent episode, moderate F33.1 ; Paranoid personality disorder F60.0 and Illness anxiety disorder F45.21 [facility] [id number] [address] 79[address] Nov, [facility] [id number] [address] 0281 Nov, [facility] [address] [address] 3317 Nov, Major depressive disorder, recurrent episode, moderate F33.1 ; Paranoid personality disorder F60.0 and Illness anxiety disorder F45.21 [facility] [address] [address] Nov, [facility] [id number] [place] [address] 39446- 5417 Nov, [facility] [address] [address] 6[address] October, 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 ; Post-traumatic stress disorder, chronic F43.12 ; Paranoid personality disorder F60.0 ; High risk medication use Z79.899 and Personality disorder in adult F60.9 [facility] [address] [address] 8293 October, Major depressive disorder, recurrent episode, moderate F33.1 ; Paranoid personality disorder F60.0 and Illness anxiety disorder 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 [facility] [facility] [address] [address] October, Major depressive disorder, recurrent episode, moderate F33.1 ; Paranoid personality disorder F60.0 and Illness anxiety disorder F45.21 [facility] [address] [address]70 Sep, Major depressive disorder, recurrent episode, moderate F33.1 ; Paranoid personality disorder F60.0 and Illness anxiety disorder F45.21 [facility] [facility] [address] [address] 5655 Sep, Major depressive disorder, recurrent episode, moderate F33.1 and Illness anxiety disorder F45.21 [facility] [address] [address]- 0376 Aug, Major depressive disorder, recurrent episode, moderate F33.1 and Illness anxiety disorder F45.21 [facility] [address] [address]- 2454 Jul, Major depressive disorder, recurrent episode, moderate F33.1 and Illness anxiety disorder F45.21 [facility] [id number] [place] [address] 56890- 4639 Jul, Major depressive disorder, recurrent episode, moderate F33.1 and Illness anxiety disorder F45.21 [facility] [id number] [place] [address] 74693- 1721 Jun, Major depressive disorder, recurrent episode, moderate F33.1 and Illness anxiety disorder F45.21 [facility] [id number] [place] [address] 37001- 6364 Jun, Major depressive disorder, recurrent episode, moderate F33.1 and Illness anxiety disorder F45.21 [facility] [id number] [place] [address] 12285- 1511 May, Major depressive disorder, recurrent episode, moderate F33.1 and Illness anxiety disorder F45.21 [address] [place] [id number] [place] [address] 74865- 3521 May, Major depressive disorder, recurrent episode, moderate F33.1 and Illness anxiety disorder F45.21 [facility] [id number] [place] [address] 84494- 9770 Apr, [facility] [id number] [place] [address] 22837- 5885 Apr, Major depressive disorder, recurrent episode, moderate F33.1 and Illness anxiety disorder F45.21 [address] [address] [address]- 6647 Mar, Major depressive disorder, recurrent episode, moderate F33.1 and Illness anxiety disorder F45.21 [address] [id number] [place] [address] 36529- 5203 Mar, Major depressive disorder, recurrent episode, moderate F33.1 [address] [id number] [place] [address] 58043- 5536 Feb, Major depressive disorder, recurrent episode, moderate F33.1 [place] [address] [address]- 2111 Jan, Major depressive disorder, recurrent episode, moderate F33.1 [facility] [address] [facility] [id number] [address]- 1364 Jan, Major depressive disorder, recurrent episode, moderate F33.1 [facility] [address] [facility] [id number] [address]- 8716 Dec, Major depressive disorder, recurrent episode, moderate F33.1 [facility] [id number] [address]- 4236 Dec, Major depressive disorder, recurrent episode, moderate F33.1 [facility] [id number] [address]- 7736 Jul, Major depressive disorder, recurrent episode, moderate F33.1 [facility] [id number] [address]- 3176 Jul, Major depressive disorder, recurrent episode, moderate F33.1 [facility] [address] [address]- 5280 Jun, Major depressive disorder, recurrent episode, moderate F33.1 [facility] [address] [address]- 9590 May, Major depressive disorder, recurrent episode, moderate F33.1 [facility] [address] [address]- 4566 Apr, Major depressive disorder, recurrent episode, moderate F33.1 [facility] [address] [address]- 3926 Mar, [facility] [id number] [address]- 3856 Feb, Major depressive disorder, recurrent episode, moderate F33.1 [facility] [id number] [address]296 Jan, Major depressive disorder, recurrent episode, moderate F33.1 [facility] [address] [address]- 4116 Dec, Major depressive disorder, recurrent episode, moderate F33.1 [facility] [address] [address]- 8056 Nov, Major depressive disorder, recurrent episode, moderate F33.1 [facility] [address] [address]- 2546 Jul, Major depressive disorder, recurrent episode, moderate F33.1 [facility] [address] [address]- 3296 Jan, Major depressive disorder, recurrent episode, moderate 296.32 [facility] [address] [address]- 0554 Jan, Major depressive disorder, recurrent episode, moderate 296.32 [facility] [address] [address]- 2326 Dec, Major depressive disorder, recurrent episode, moderate 296.32 [facility] [address] 4639 Dec, Major depressive disorder, recurrent episode, moderate 296.32 [facility] [address] 7219 Nov, Major depressive disorder, recurrent episode, moderate 296.32 [facility] [address] [address]- 9096 October, Major depressive disorder, recurrent episode, moderate 296.32 [facility] [address] [address]- 0296 Sep, [facility] [address] [address]- 6326 Sep, [facility] [address] [address]- 9846 30 Aug, 2014 [facility] [address] [address]- 9176 16 Aug, 2014 [facility] [place] [facility] [address] [id number] [place] [address]- 3007 Aug, [facility] [place] [facility] [address] [id number] [place] [address]- 7573 Aug, [facility] [place] [facility] [address] [id number] [place] [address]- 0296 Aug, [facility] [place] [facility] [address] [id number] [place] [address]- 8615 Jul, 2014 [facility] [place] [facility] [address] [id number] [place] [address]- 3035 Jul, 2014 [facility] [place] [facility] [address] [id number] [place] [address]- 2435 Jul, [facility] [place] [facility] [address] [id number] [place] [address]- 1310 Jul, [facility] [place] [facility] [address] [id number] [place] [address]- 3094 Jun, [facility] [place] [facility] [address] [id number] [place] [address]- 4892 Jun, [facility] [place] [facility] [address] [facility] [id number] [place] [address]- 4340 May, [facility] [place] [facility] [address] [id number] [address]- 1665 May, [facility] [place] [facility] [address] [id number] [address]- 2380 Apr, [facility] [place] [facility] [address] [id number] [place] [address]- 2990 Apr, [facility] [place] [facility] [address] [id number] [place] [address]- 1796 Mar, [facility] [place] [facility] [address] [id number] 5331 Mar, [facility] [place] [facility] [address] [id number] [address]- 8132 Mar, [facility] [place] [facility] [address] [id number] [place] [address]- 8130 Mar, [facility] [place] [facility] [address] [id number] [place] [address]- 1367 Mar, [facility] [place] [facility] [address] [id number] [place] [address]- 2590 Mar, [facility] [place] [facility] [address] [id number] [place] [address]- 1176 Mar, [facility] [place] [facility] [address] [id number] [place] [address]- 4253 Mar, [facility] [place] [facility] [address] [id number] [place] [address]- 2952 Feb, [facility] [place] [facility] [address] [id number] [place] [address]- 3321 Feb, [facility] [place] [facility] [address] [id number] [place] [address]- 7828 Feb, [facility] [place] [facility] [address] [id number] [place] [address]- 8164 Feb, [facility] [place] [facility] [address] [facility] [id number] [place] [address]- 8939 Jan, [facility] [place] [facility] [address] [id number] [place] [address]- 1275 Jan, [facility] [place] [facility] [address] [id number] [address]- 1192 Dec, [facility] [place] [facility] [address] [id number] [place] [address]- 1800 Dec, [facility] [place] [facility] [address] [facility] [id number] [address]- 4067 Nov, [facility] [place] [facility] [address] [facility] [id number] [place] [address]- 3866 Nov, [facility] [place] [facility] [address] [id number] [place] [address]- 0274 October, [facility] [place] [facility] [address] [id number] [place] [address]- 0253 October, [facility] [place] [facility] [address] [id number] [place] [address]- 0117 Sep, [facility] [place] [facility] [address] [id number] [place] [address]- 4716 Sep, [facility] [place] [facility] [address] [id number] [place] [address]- 8495 Aug, [facility] [place] [facility] [address] [id number] [place] [address]- 6769 Aug, [facility] [place] [facility] [address] [id number] [place] [address]- 1801 Jul, [facility] [place] [facility] [address] [id number] [place] [address]- 6048 Jul, [facility] [place] [facility] [address] [id number] [place] [address]- 1241 Jun, [facility] [place] [facility] [address] [id number] [place] [address]- 0281 Jun, [facility] [place] [facility] [address] [id number] [place] [address]- 2771 Mar, [facility] [place] [facility] [address] [id number] [place] [address]- 2151 Mar, [facility] [place] [facility] [address] [id number] [place] [address]- 9854 Mar, [facility] [place] [facility] [address] [id number] [place] [address]- 4077 Mar, [facility] [place] [facility] [address] [id number] [place] 3889 Mar, [facility] [place] [facility] [address] [id number] [place] [address]- 9286 May, IMMUNIZATIONS No Known Immunizations SOCIAL HISTORY Never Assessed REASON FOR VISIT Request appointment PLAN OF CARE VITAL SIGNS MEDICATIONS Unknown [...]
--- OUTSIDE RECORDS SUMMARY | 2018-08-03 05:42 | XMS REPORT ---
Author Author YON CONSTANTINO Organization 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 Role Phone YON CONSTANTINO Unavailable PROBLEMS Type Condition ICD9-CM Code [id number]-TL Code Onset Dates Condition Status SNOMED Code Problem Major depressive disorder, recurrent episode, moderate F33.1 Active 543209823 Problem Post-traumatic stress disorder, chronic F43.12 Active 407259195 Problem High risk medication use Z79.899 Active [id number] Problem Illness anxiety disorder F45.21 Active [id number] Problem Acute pharyngitis 462 Active 473058137 Problem Personality disorder in adult F60.9 Active 44056162 Problem Paranoid personality disorder F60.0 Active [id number] ALLERGIES No Information ENCOUNTERS Encounter Location Date Diagnosis [facility] [id number] [place] [address]30- 4354 Mar, [facility] [id number] [place] [address] 17659- 1861 Mar, [facility] [id number] [place] [address] 26253- 7675 Feb, [facility] [id number] [place] [address] 00642- 4134 Jan, [facility] [id number] [place] [address] 59337- 3639 Jan, [facility] [id number] [place] [address] 29257- 3266 Jan, Major depressive disorder, recurrent episode, moderate F33.1 ; Paranoid personality disorder F60.0 and Illness anxiety disorder F45.21 [facility] [id number] [place] [address] 51536- 9722 Jan, Major depressive disorder, recurrent episode, moderate F33.1 ; Paranoid personality disorder F60.0 and Illness anxiety disorder F45.21 [facility] [address] [address] Dec, Illness anxiety disorder F45.21 ; Post-traumatic stress disorder, chronic F43.12 ; Paranoid personality disorder F60.0 ; High risk medication use Z79.899 and Personality disorder in adult F60.9 [facility] [id number] [address] Dec, Major depressive disorder, recurrent episode, moderate F33.1 ; Paranoid personality disorder F60.0 and Illness anxiety disorder F45.21 [facility] [address] [address] Dec, Major depressive disorder, recurrent episode, moderate F33.1 ; Paranoid personality disorder F60.0 and Illness anxiety disorder F45.21 [facility] [address] [address] 4023 Dec, [facility] [id number], [place] [address] 3053 Nov, [facility] [address] [address]- 8146 Nov, Major depressive disorder, recurrent episode, moderate F33.1 ; Paranoid personality disorder F60.0 and Illness anxiety disorder F45.21 [facility] [id number] [address] 7599 Nov, [facility] [id number] [address]- 7384 Nov, [facility] [address] [address]- 8146 Nov, Major depressive disorder, recurrent episode, moderate F33.1 ; Paranoid personality disorder F60.0 and Illness anxiety disorder F45.21 [facility] [address] [address] Nov, [place] [id number] [place] [address] 43468- 9232 Nov, [facility] [address] [address] October, Illness anxiety disorder F45.21 ; Post-traumatic stress disorder, chronic F43.12 ; Paranoid personality disorder F60.0 ; High risk medication use Z79.899 and Personality disorder in adult F60.9 [place] [address] [address]- [address] October, Major depressive disorder, recurrent episode, moderate F33.1 ; Paranoid personality disorder F60.0 and Illness anxiety disorder F45.21 [place] [address] [address]- 5521 October, Major depressive disorder, recurrent episode, moderate F33.1 ; Paranoid personality disorder F60.0 and Illness anxiety disorder F45.21 [place] [address] [address]- 3155 Sep, Major depressive disorder, recurrent episode, moderate F33.1 ; Paranoid personality disorder F60.0 and Illness anxiety disorder F45.21 [place] [address] [address]- 5341 Sep, Major depressive disorder, recurrent episode, moderate F33.1 and Illness anxiety disorder F45.21 [place] [address] [address]- 9982 Aug, Major depressive disorder, recurrent episode, moderate F33.1 and Illness anxiety disorder F45.21 [place] [address] [address]- 4584 Jul, Major depressive disorder, recurrent episode, moderate F33.1 and Illness anxiety disorder F45.21 [place] [address] [place] [address] 10839- 6288 Jul, Major depressive disorder, recurrent episode, moderate F33.1 and Illness anxiety disorder F45.21 [place] [address] [place] [address] 46162- 1711 Jun, Major depressive disorder, recurrent episode, moderate F33.1 and Illness anxiety disorder F45.21 [place] [address] [place] [address] 63776- 3233 Jun, Major depressive disorder, recurrent episode, moderate F33.1 and Illness anxiety disorder F45.21 [place] [id number] [place] [address] 14384- 2194 May, Major depressive disorder, recurrent episode, moderate F33.1 and Illness anxiety disorder F45.21 [place] [address] [place] [address] 95017- 1752 May, Major depressive disorder, recurrent episode, moderate F33.1 and Illness anxiety disorder F45.21 [place] [id number] [place] [address] 60599- 4782 Apr, [place] [id number] [place] [address] 34731- 3972 Apr, Major depressive disorder, recurrent episode, moderate F33.1 and Illness anxiety disorder F45.21 [place] [address] [address]- 9601 Mar, Major depressive disorder, recurrent episode, moderate F33.1 and Illness anxiety disorder F45.21 [place] [address] [place] [address] 05818- 9248 Mar, Major depressive disorder, recurrent episode, moderate F33.1 [place] [id number] [place] [address] 44354- 0426 Feb, Major depressive disorder, recurrent episode, moderate F33.1 [place] [address] [address]- 1148 Jan, Major depressive disorder, recurrent episode, moderate F33.1 [facility] [address] [facility] [id number] [address]- 6062 Jan, Major depressive disorder, recurrent episode, moderate F33.1 [facility] [address] [facility] [id number], [place] [address]- [address]796 Dec, Major depressive disorder, recurrent episode, moderate F33.1 [facility] [id number] [address]- 6136 Dec, Major depressive disorder, recurrent episode, moderate F33.1 [facility] [id number], [place] [address]- 5206 Jul, Major depressive disorder, recurrent episode, moderate F33.1 [facility] [id number] [address]- 9766 Jul, Major depressive disorder, recurrent episode, moderate F33.1 [facility] [address], [place] [address]- 6824 Jun, Major depressive disorder, recurrent episode, moderate F33.1 [facility] [address], [place] [address]- 8112 May, Major depressive disorder, recurrent episode, moderate F33.1 [facility] [address], [place] [address]- 2266 Apr, Major depressive disorder, recurrent episode, moderate F33.1 [facility] [address], [place] [address]- 5606 Mar, [facility] [id number], [place] [address]- 4276 Feb, Major depressive disorder, recurrent episode, moderate F33.1 [facility] [id number] 7366 Jan, Major depressive disorder, recurrent episode, moderate F33.1 [facility] [address], [place] [address]- 2986 Dec, Major depressive disorder, recurrent episode, moderate F33.1 [facility] [address], [place] [address]- 3736 Nov, Major depressive disorder, recurrent episode, moderate F33.1 [facility] [address], [place] [address]- 2546 Jul, Major depressive disorder, recurrent episode, moderate F33.1 [facility] [address], [place] [address]- 5836 Jan, Major depressive disorder, recurrent episode, moderate 296.32 [facility] [address], [place] [address]- 3220 Jan, Major depressive disorder, recurrent episode, moderate 296.32 [facility] [address], [place] [address]- 0416 Dec, Major depressive disorder, recurrent episode, moderate 296.32 [facility] [address]- 4582 Dec, Major depressive disorder, recurrent episode, moderate 296.32 [facility] [address] 3177 Nov, Major depressive disorder, recurrent episode, moderate 296.32 [facility] [address], [place] [address]- 6776 October, Major depressive disorder, recurrent episode, moderate 296.32 [facility] [address], [place] [address]- 9126 Sep, [facility] [address], [place] [address]- 5266 Sep, [facility] [address], [place] [address]- 5226 30 Aug, 2014 [facility] [address], [place] [address]- 8666 16 Aug, 2014 [facility] [place] [facility] [address] [id number] [place] [address]- 0578 Aug, [facility] [place] [facility] [address] [id number] [place] [address]- 1891 Aug, [facility] [place] [facility] [address] [id number] [place] [address]- 7985 Aug, [facility] [place] [facility] [address] [id number] [place] [address]- 7353 Jul, 2014 [facility] [place] [facility] [address] [id number] [place] [address]- 6908 Jul, 2014 [facility] [place] [facility] [address] [id number] [place] [address]- 1996 Jul, [facility] [place] [facility] [address] [id number] [place] [address]- 0261 Jul, [facility] [place] [facility] [address] [id number] [place] [address]- 8896 Jun, [facility] [place] [facility] [address] [id number] [place] [address]- 6893 Jun, [facility] [place] [facility] [address] [facility] [id number] [place] [address]- 0341 May, [facility] [place] [facility] [address] [id number], [place] [address]- 2848 May, [facility] [place] [facility] [address] [id number], [place] [address]- 3634 Apr, [facility] [place] [facility] [address] [id number] [place] [address]- 7520 Apr, [facility] [place] [facility] [address] [id number] [place] [address]- 6913 Mar, [facility] [place] [facility] [address] [id number] 7576 Mar, [facility] [place] [facility] [address] [id number], [place] [address]- 8513 Mar, [facility] [place] [facility] [address] [id number] [place] [address]- 8064 Mar, [facility] [place] [facility] [address] [id number] [place] [address]- 7112 Mar, [facility] [place] [facility] [address] [id number] [place] [address]- 2414 Mar, [facility] [place] [facility] [address] [id number] [place] [address]- 9015 Mar, [facility] [place] [facility] [address] [id number] [place] [address]- 0078 Mar, [facility] [place] [facility] [address] [id number] [place] [address]- 8391 Feb, [facility] [place] [facility] [address] [id number] [place] [address]- 0639 Feb, [facility] [place] [facility] [address] [id number] [place] [address]- 8725 Feb, [facility] [place] [facility] [address] [id number] [place] [address]- 7614 Feb, [facility] [place] [facility] [address] [facility] [id number] [place] [address]- 3573 Jan, [facility] [place] [facility] [address] [id number] [place] [address]- 2947 Jan, [facility] [place] [facility] [address] [id number], [place] [address]- 3269 Dec, [facility] [place] [facility] [address] [id number] [place] [address]- 4687 Dec, [facility] [place] [facility] [address] [facility] [id number], [place] [address]- 3078 Nov, [facility] [place] [facility] [address] [facility] [id number] [place] [address]- 2438 Nov, [facility] [place] [facility] [address] [id number] [place] [address]- 2039 October, [facility] [place] [facility] [address] [id number] [place] [address]- 2489 October, [facility] [place] [facility] [address] [id number] [place] [address]- 2818 Sep, [facility] [place] [facility] [address] [id number] [place] [address]- 0229 Sep, [facility] [place] [facility] [address] [id number] [place] [address]- 6454 Aug, [facility] [place] [facility] [address] [id number] [place] [address]- 5159 Aug, [facility] [place] [facility] [address] [id number] [place] [address]- 0735 Jul, [facility] [place] [facility] [address] [id number] [place] [address]- 7234 Jul, [facility] [place] [facility] [address] [id number] [place] [address]- 6770 Jun, [facility] [place] [facility] [address] [id number] [place] [address]- 6308 Jun, [facility] [place] [facility] [address] [id number] [place] [address]- 1141 Mar, [facility] [place] [facility] [address] [id number] [place] [address]- 4300 Mar, [facility] [place] [facility] [address] [id number] [place] [address]- 8910 Mar, [facility] [place] [facility] [address] [id number] [place] [address]- 9718 Mar, [facility] [place] [facility] [address] [id number] [place] 1279 Mar, [facility] [place] [facility] [address] [id number] [place] [address]- 7799 May, IMMUNIZATIONS No Known Immunizations SOCIAL HISTORY Never Assessed REASON FOR VISIT f/u PLAN OF CARE Activity Details Follow Up 2 Weeks after last appointment Reason: VITAL SIGNS MEDICATIONS Unknown Medications RESULTS No Results PROCEDURES Procedure Date Ordered Result Body Site [facility] VISIT MENTAL HEALTH ESTAB PT October 14, 2017 Psychotherapy, patient &/family, 30 minutes, established patient October 14, 2017 INSTRUCTIONS MEDICATIONS ADMINISTERED No Known Medications [...]
--- OUTSIDE RECORDS SUMMARY | 2018-08-03 05:42 | XMS REPORT ---
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 Active [id number] Problem Acute pharyngitis 462 Active 284496836 Problem Personality disorder in adult F60.9 Active 01288591 Problem Paranoid personality disorder F60.0 Active [id number] ALLERGIES No Information ENCOUNTERS Encounter Location Date Diagnosis [facility] [address] [address] Mar, [facility] [id number] [place] [address]- [address] Feb, [facility] [address] [address] Jan, [facility] [id number] [place] [address]- 7784 Jan, [facility] [address] [address] Jan, [facility] [id number] [place] [address]31- 7647 Jan, Major depressive disorder, recurrent episode, moderate F33.1 ; Paranoid personality disorder F60.0 and 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 [facility] [id number] [place] [address]01- 8257 Jan, Major depressive disorder, recurrent episode, moderate F33.1 ; Paranoid personality disorder F60.0 and 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 [facility] [address] [address] Dec, 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 ; Post-traumatic stress disorder, chronic F43.12 ; Paranoid personality disorder F60.0 ; High risk medication use Z79.899 and Personality disorder in adult F60.9 [facility] [id number] [address] Dec, Major depressive disorder, recurrent episode, moderate F33.1 ; Paranoid personality disorder F60.0 and 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 [facility] [address] [address] Dec, Major depressive disorder, recurrent episode, moderate F33.1 ; Paranoid personality disorder F60.0 and 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 [facility] [address] [address] Dec, [facility] [address] [address] Nov, [facility] [address] [address] Nov, Major depressive disorder, recurrent episode, moderate F33.1 ; Paranoid personality disorder F60.0 and 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 [facility] [address] [address] Nov, [facility] [id number] [address] Nov, [facility] [address] [address] Nov, Major depressive disorder, recurrent episode, moderate F33.1 ; Paranoid personality disorder F60.0 and 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 [facility] [address] [address] Nov, [facility] [id number] [place] [address]- 2224 Nov, [facility] [id number] [place] [address]- 67[address] October, 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 ; Post-traumatic stress disorder, chronic F43.12 ; Paranoid personality disorder F60.0 ; High risk medication use Z79.899 and Personality disorder in adult F60.9 [facility] [address] [place] [address]22- 1747 October, Major depressive disorder, recurrent episode, moderate F33.1 ; Paranoid personality disorder F60.0 and 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 [facility] [address] [place] [address] 81368- 7916 October, Major depressive disorder, recurrent episode, moderate F33.1 ; Paranoid personality disorder F60.0 and 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 [facility] [address] [address] Sep, Major depressive disorder, recurrent episode, moderate F33.1 ; Paranoid personality disorder F60.0 and Illness anxiety disorder 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 [facility] [address] [address] 07[address] Sep, Major depressive disorder, recurrent episode, moderate F33.1 and Illness anxiety disorder F45.21 [facility] [address] [address] Aug, Major depressive disorder, recurrent episode, moderate F33.1 and Illness anxiety disorder F45.21 [facility] [id number] [place] [address] 24346- 7517 28 Jul, 2017 Major depressive disorder, recurrent episode, moderate F33.1 and Illness anxiety disorder F45.21 [facility] [address] [place] [address] 61845- 0040 Jul, Major depressive disorder, recurrent episode, moderate F33.1 and Illness anxiety disorder 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 [facility] [address] [place] [address] 91841- 2996 Jun, Major depressive disorder, recurrent episode, moderate F33.1 and Illness anxiety disorder F45.21 [facility] [id number] [address] Jun, Major depressive disorder, recurrent episode, moderate F33.1 and Illness anxiety disorder 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 [facility] [address] [place] [address] 09169- 9434 May, Major depressive disorder, recurrent episode, moderate F33.1 and Illness anxiety disorder F45.21 [facility] [address] [place] [address] 31273- 2149 May, Major depressive disorder, recurrent episode, moderate F33.1 and Illness anxiety disorder F45.21 [facility] [id number] [place] [address] 21392- 8849 Apr, [facility] [id number] [place] [address] 64080- 9188 Apr, Major depressive disorder, recurrent episode, moderate F33.1 and Illness anxiety disorder F45.21 [facility] [address] [address]- 49[address] Mar, Major depressive disorder, recurrent episode, moderate F33.1 and Illness anxiety disorder F45.21 [place] [facility] [address] [address]- 5[address] Mar, Major depressive disorder, recurrent episode, moderate F33.1 [facility] [id number] [place] [address] 24015- 0219 Feb, Major depressive disorder, recurrent episode, moderate F33.1 [facility] [address] [address]- [address] Jan, Major depressive disorder, recurrent episode, moderate F33.1 [facility] [id number] [address]- 9[address] Jan, Major depressive disorder, recurrent episode, moderate F33.1 [facility] [address] [address]- 7196 Dec, Major depressive disorder, recurrent episode, moderate F33.1 [facility] [address] [address]- 4936 Dec, Major depressive disorder, recurrent episode, moderate F33.1 [facility] [address] [address]- 8586 Jul, Major depressive disorder, recurrent episode, moderate F33.1 [facility] [address] [address]- 9336 Jul, Major depressive disorder, recurrent episode, moderate F33.1 [facility] [address] [place] [address] 68452- 6367 Jun, Major depressive disorder, recurrent episode, moderate F33.1 [facility] [address] [address]- 1480 May, Major depressive disorder, recurrent episode, moderate F33.1 [facility] [address] [address]- 7164 Apr, Major depressive disorder, recurrent episode, moderate F33.1 [facility] [address] [address]- 1826 Mar, [facility] [id number] [address]- 4[address] Feb, Major depressive disorder, recurrent episode, moderate F33.1 [facility] [address] [address] Jan, Major depressive disorder, recurrent episode, moderate F33.1 [facility] [address] [address]- 5816 Dec, Major depressive disorder, recurrent episode, moderate F33.1 [facility] [address] [address]- 3376 Nov, Major depressive disorder, recurrent episode, moderate F33.1 [facility] [address] [address]- 2546 Jul, Major depressive disorder, recurrent episode, moderate F33.1 [facility] [address] [address]- 0116 Jan, Major depressive disorder, recurrent episode, moderate 296.32 [facility] [address] [address]- 4752 Jan, Major depressive disorder, recurrent episode, moderate 296.32 [facility] [address] [address]- 6316 Dec, Major depressive disorder, recurrent episode, moderate 296.32 [facility] [address] [address]- 8585 Dec, Major depressive disorder, recurrent episode, moderate 296.32 [facility] [address] [address]- 5846 Nov, Major depressive disorder, recurrent episode, moderate 296.32 [facility] [address] [address]- 1176 October, Major depressive disorder, recurrent episode, moderate 296.32 [facility] [address] [address]- 2376 Sep, [facility] [address] [address]- 3276 Sep, [facility] [address] [address] 2546 30 Aug, 2014 [facility] [address] [address]- 2686 Aug, [facility] [place] [facility] [address] [id number] [place] [address]- 3835 Aug, 2014 [facility] [place] [facility] [address] [id number] [place] [address]- 3057 Aug, 2014 [facility] [place] [facility] [address] [id number] [place] [address]- 8951 Aug, 2014 [facility] [place] [facility] [address] [id number] [place] [address]- 1610 Jul, 2014 [facility] [place] [facility] [address] [id number] [place] [address]- 9252 Jul, 2014 [facility] [place] [facility] [address] [id number] [place] [address] Jul, 2014 [facility] [place] [facility] [address] [facility] [id number] [place] [address] Jul, 2014 [facility] [place] [facility] [address] [id number] [place] [address]- 1295 Jun, [facility] [place] [facility] [address] [id number] [place] [address]- 8610 Jun, [facility] [place] [facility] [address] [facility] [id number] [place] [address] May, [facility] [place] [facility] [address] [facility] [id number] [place] [address]- 3586 May, [facility] [place] [facility] [address] [id number] [address]- 7597 Apr, [facility] [place] [facility] [address] [id number] [place] [address]- 7328 Apr, [facility] [place] [facility] [address] [id number] [place] [address]- 7055 Mar, [facility] [place] [facility] [address] [id number] [place] [address]- 7867 Mar, [facility] [place] [facility] [address] [id number] [place] [address]- 8078 Mar, [facility] [place] [facility] [address] [id number] [place] [address]- 8700 Mar, [facility] [place] [facility] [address] [id number] [place] [address] Mar, [facility] [place] [facility] [address] [id number] [place] [address]- 3652 Mar, [facility] [place] [facility] [address] [id number] [place] [address]- 3465 Mar, [facility] [place] [facility] [address] [id number] [place] [address]- 8280 Mar, [facility] [place] [facility] [address] [id number] [place] [address]- 2031 Feb, [facility] [place] [facility] [address] [id number] [place] [address]- 8911 Feb, [facility] [place] [facility] [address] [id number] [place] [address]- 8022 Feb, [facility] [place] [facility] [address] [id number] [place] [address]- 1791 Feb, [facility] [place] [facility] [address] [id number] [place] [address]- 2629 Jan, [facility] [place] [facility] [address] [id number] [place] [address]- 9154 Jan, [facility] [place] [facility] [address] [id number] [address]- 4205 Dec, [facility] [place] [facility] [address] [id number] [place] [address]- 4255 Dec, [facility] [place] [facility] [address] [id number] [place] [address]- 3380 Nov, [facility] [place] [facility] [address] [id number] [place] [address]- 1642 Nov, [facility] [place] [facility] [address] [id number] [place] [address]- 6651 October, [facility] [place] [facility] [address] [id number] [place] [address]- 1052 October, [facility] [place] [facility] [address] [id number] [place] [address]- 1741 Sep, [facility] [place] [facility] [address] [id number] [place] [address]- 3103 Sep, [facility] [place] [facility] [address] [id number] [place] [address]- 7898 Aug, [facility] [place] [facility] [address] [id number] [place] [address]- 4753 Aug, [facility] [place] [facility] [address] [id number] [place] [address]- 4247 Jul, [facility] [place] [facility] [address] [id number] [place] [address]- 2046 Jul, [facility] [place] [facility] [address] [id number] [place] [address]- 3362 Jun, [facility] [place] [facility] [address] [id number] [place] [address]- 4839 Jun, [facility] [place] [facility] [address] [id number] [place] [address]- 5739 Mar, [facility] [place] [facility] [address] [id number] [place] [address]- 8435 Mar, [facility] [place] [facility] [address] [id number] [place] [address]- 5420 Mar, [facility] [place] [facility] [address] [id number] [place] [address]- 7287 Mar, [facility] [place] [facility] [address] [id number] [place] [address]- 4476 Mar, [facility] [place] [facility] [address] [id number] [place] [address]- 7694 May, IMMUNIZATIONS No Known Immunizations SOCIAL HISTORY Never Assessed REASON FOR VISIT FYI to Dr. Ruiz PLAN OF CARE VITAL SIGNS MEDICATIONS Unknown [...]
--- OUTSIDE RECORDS SUMMARY | 2018-08-03 05:42 | XMS REPORT ---
Author Author YON CONSTANTINO Organization [facility] Address [address] [place] [address] Care Team Providers Care Banking Specialist Name Role Phone YON CONSTANTINO Unavailable PROBLEMS Type Condition ICD9-CM Code OGC01-GO Code Onset Dates Condition Status SNOMED Code Problem Major depressive disorder, recurrent episode, moderate F33.1 Active 115889974 Problem Post-traumatic stress disorder, chronic F43.12 Active 545151351 Problem High risk medication use Z79.899 Active 153238028052748 Problem Illness anxiety disorder F45.21 Active 75035155521214534 Problem Acute pharyngitis 462 Active 107725186 Problem Personality disorder in adult F60.9 Active 03586251 Problem Paranoid personality disorder F60.0 Active [id number] ALLERGIES No Information ENCOUNTERS Encounter Location Date Diagnosis [facility] [id number] [place] [address] 95345- 9524 Mar, [facility] [id number] [place] [address] 75280- 7319 Feb, [facility] [address] [address] Jan, [facility] [id number] [place] [address] 36244- 5704 Jan, [facility] [id number] [place] [address] 14303- 2471 Jan, Major depressive disorder, recurrent episode, moderate F33.1 ; Paranoid personality disorder F60.0 and Illness anxiety disorder F45.21 [facility] [address] [address] Jan, Major depressive disorder, recurrent episode, moderate F33.1 ; Paranoid personality disorder F60.0 and Illness anxiety disorder F45.21 [facility] [address] [address] Dec, 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 ; Post-traumatic stress disorder, chronic F43.12 ; Paranoid personality disorder F60.0 ; High risk medication use Z79.899 and Personality disorder in adult F60.9 [facility] [id number] [place] [address] 95040- 5358 Dec, Major depressive disorder, recurrent episode, moderate F33.1 ; Paranoid personality disorder F60.0 and Illness anxiety disorder F45.21 [facility] [id number] [place] [address] 83787- 9694 Dec, Major depressive disorder, recurrent episode, moderate F33.1 ; Paranoid personality disorder F60.0 and Illness anxiety disorder F45.21 [facility] [id number] [place] [address] 24253- 7312 Dec, [facility] [id number] [place] [address] 20660- 4554 Nov, [facility] [id number] [place] [address] 92926- 9546 Nov, Major depressive disorder, recurrent episode, moderate F33.1 ; Paranoid personality disorder F60.0 and Illness anxiety disorder F45.21 [facility] [id number] [place] [address] 00602- 6479 Nov, [facility] [id number] [place] [address] 73610- 1416 Nov, [facility] [id number] [place] [address] 37859- 4580 Nov, Major depressive disorder, recurrent episode, moderate F33.1 ; Paranoid personality disorder F60.0 and Illness anxiety disorder F45.21 [facility] [id number] [place] [address] 23772- 9595 06 Nov, 2017 [facility] [address] [address] Nov, [facility] [id number] [place] [address] 24089- 5648 October, Illness anxiety disorder 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 ; Post-traumatic stress disorder, chronic F43.12 ; Paranoid personality disorder F60.0 ; High risk medication use Z79.899 and Personality disorder in adult F60.9 [facility] [id number] [place] [address] 20400- 9957 October, Major depressive disorder, recurrent episode, moderate F33.1 ; Paranoid personality disorder F60.0 and Illness anxiety disorder F45.21 [facility] [id number] [place] [address] 17601- 9859 October, Major depressive disorder, recurrent episode, moderate F33.1 ; Paranoid personality disorder F60.0 and Illness anxiety disorder F45.21 [facility] [id number] [place] [address] 24458- 5915 Sep, Major depressive disorder, recurrent episode, moderate F33.1 ; Paranoid personality disorder F60.0 and Illness anxiety disorder F45.21 [facility] [address] [place] [address] 43577- 6683 Sep, Major depressive disorder, recurrent episode, moderate F33.1 and Illness anxiety disorder F45.21 [facility] [address] [place] [address] 22343- 9771 Aug, Major depressive disorder, recurrent episode, moderate F33.1 and Illness anxiety disorder F45.21 [facility] [address] [place] [address] 72350- 0471 Jul, Major depressive disorder, recurrent episode, moderate F33.1 and Illness anxiety disorder F45.21 [facility] [address] [place] [address] 75292- 8082 14 Jul, 2017 Major depressive disorder, recurrent episode, moderate F33.1 and Illness anxiety disorder F45.21 [facility] [address] [address]- 3951 Jun, Major depressive disorder, recurrent episode, moderate F33.1 and Illness anxiety disorder F45.21 [facility] [address] [address] Jun, Major depressive disorder, recurrent episode, moderate F33.1 and Illness anxiety disorder F45.21 [facility] [id number] [place] [address] 76458- 0383 May, Major depressive disorder, recurrent episode, moderate F33.1 and Illness anxiety disorder F45.21 [facility] [id number] [place] [address] 89186- 4461 May, Major depressive disorder, recurrent episode, moderate F33.1 and Illness anxiety disorder F45.21 [facility] [id number] [place] [address] 28558- 4966 Apr, [facility] [id number] [place] [address] 17288- 4228 Apr, Major depressive disorder, recurrent episode, moderate F33.1 and Illness anxiety disorder F45.21 [facility] [address] [place] [address] 00927- 2304 Mar, Major depressive disorder, recurrent episode, moderate F33.1 and Illness anxiety disorder F45.21 [facility] [address] [place] [address] 02329- 5250 Mar, Major depressive disorder, recurrent episode, moderate F33.1 [facility] [address] [place] [address] 50667- 4737 Feb, Major depressive disorder, recurrent episode, moderate F33.1 [facility] [address] [place] [address] 80010- 2229 Jan, Major depressive disorder, recurrent episode, moderate F33.1 [facility] [address] [address]- 6747 Jan, Major depressive disorder, recurrent episode, moderate F33.1 [facility] [address] [facility] [id number] [address]- 6136 Dec, Major depressive disorder, recurrent episode, moderate F33.1 [facility] [address] [facility] [id number] [address]- 1536 Dec, Major depressive disorder, recurrent episode, moderate F33.1 [facility] [id number] 6784 Jul, Major depressive disorder, recurrent episode, moderate F33.1 [facility] [id number] 4746 Jul, Major depressive disorder, recurrent episode, moderate F33.1 [facility] [id number] [address]- 8996 Jun, Major depressive disorder, recurrent episode, moderate F33.1 [facility] [id number] [address]- 9812 May, Major depressive disorder, recurrent episode, moderate F33.1 [facility] [address] [address]- 2133 Apr, Major depressive disorder, recurrent episode, moderate F33.1 [facility] [address] [address]- 8076 Mar, [facility] [id number] [address]308 Feb, Major depressive disorder, recurrent episode, moderate F33.1 [facility] [id number] 8616 Jan, Major depressive disorder, recurrent episode, moderate F33.1 [facility] [id number] 1672 Dec, Major depressive disorder, recurrent episode, moderate F33.1 [facility] [address] [address]- 2546 Nov, Major depressive disorder, recurrent episode, moderate F33.1 [facility] [address] [address]- 2546 Jul, Major depressive disorder, recurrent episode, moderate F33.1 [facility] [address] [address]- 2546 Jan, Major depressive disorder, recurrent episode, moderate 296.32 [facility] [address] [address]- 7226 Jan, Major depressive disorder, recurrent episode, moderate 296.32 [facility] [address] [address]- 6036 Dec, Major depressive disorder, recurrent episode, moderate 296.32 [facility] [address] [address]- 7086 Dec, Major depressive disorder, recurrent episode, moderate 296.32 [facility] [address] [address]- 9808 Nov, Major depressive disorder, recurrent episode, moderate 296.32 [facility] [address] [address]- 5076 October, Major depressive disorder, recurrent episode, moderate 296.32 [facility] [address] [address]- 1836 Sep, [facility] [address] [address]- 2546 Sep, [facility] [address] [address]- 2546 30 Aug, 2014 [facility] [address] [address]- 2546 Aug, [facility] [id number] [address]- 6446 Aug, [facility] [place] [facility] [address] [id number] [place] [address]- 0673 Aug, [facility] [place] [facility] [address] [id number] [place] [address]- 1562 Aug, [facility] [place] [facility] [address] [id number] [place] [address]- 8242 Jul, 2014 [facility] [place] [facility] [address] [id number] [place] [address]- 2281 Jul, [facility] [place] [facility] [address] [id number] [place] 3958 Jul, [facility] [place] [facility] [address] [id number] [place] [address]- 1419 Jul, [facility] [place] [facility] [address] [id number] [place] [address]- 0466 Jun, [facility] [place] [facility] [address] [id number] [place] [address]- 9330 Jun, [facility] [place] [facility] [address] [id number] [place] [address]- 3336 May, [facility] [place] [facility] [address] [facility] [id number] [place] [address]- 4513 May, [facility] [place] [facility] [address] [facility] [id number] [address]- 7304 Apr, [facility] [place] [facility] [address] [id number] [address]- 4499 Apr, [facility] [place] [facility] [address] [id number] [place] [address]- 5068 Mar, [facility] [place] [facility] [address] [id number] [place] [address]- 2923 Mar, [facility] [place] [facility] [address] [facility] [id number] Mar, [facility] [place] [facility] [address] [id number] [address]- 9555 Mar, [facility] [place] [facility] [address] [id number] [place] [address]- 5363 Mar, [facility] [place] [facility] [address] [id number] [place] [address]- 0557 Mar, [facility] [place] [facility] [address] [id number] [place] [address]- 4514 Mar, [facility] [place] [facility] [address] [id number] [place] [address]- 6393 Mar, [facility] [place] [facility] [address] [id number] [place] [address]- 4932 Feb, [facility] [place] [facility] [address] [id number] [place] [address]- 1505 Feb, [facility] [place] [facility] [address] [id number] [place] [address]- 6572 Feb, [facility] [place] [facility] [address] [id number] [place] [address]- 1110 Feb, [facility] [place] [facility] [address] [facility] [id number] [place] [address]- 6504 Jan, [facility] [place] [facility] [address] [facility] [id number] [place] [address]- 9343 Jan, [facility] [place] [facility] [address] [id number] [place] [address]- 7856 Dec, [facility] [place] [facility] [address] [id number] [address]- 6304 Dec, [facility] [place] [facility] [address] [id number] [place] [address]- 7454 Nov, [facility] [place] [facility] [address] [id number] [place] [address]- 7733 Nov, [facility] [place] [facility] [address] [facility] [id number] [place] [address]- 1182 October, [facility] [place] [facility] [address] [facility] [id number] [place] [address]- 5995 October, [facility] [address] [facility] [id number] [place] [address]- 5457 Sep, [facility] [address] [facility] [id number] [place] [address]- 3833 Sep, [facility] [address] [facility] [id number] [place] 6939 Aug, [facility] [address] [id number] [place] [address]- 8363 Aug, [facility] [address] [facility] [id number] [place] [address]122 Jul, [facility] [address] [facility] [id number] [place] [address]- 2971 Jul, [facility] [address] [facility] [id number] [place] [address]- 0020 Jun, [facility] [address] [facility] [id number] [place] [address]- 4803 Jun, [facility] [address] [facility] [id number] [place] 6809 Mar, [facility] [address] [facility] [id number] [place] [address]- 4846 Mar, [facility] [address] [facility] [id number] [place] [address]- 9999 Mar, [facility] [address] [facility] [id number] [place] 0557 Mar, [facility] [address] [facility] [id number] [place] 6384 Mar, [facility] [address] [facility] [id number] [place] [address]- 6004 May, IMMUNIZATIONS No Known Immunizations SOCIAL HISTORY Never Assessed REASON FOR VISIT f/u PLAN OF CARE Activity Details Follow Up 2 Weeks Reason: VITAL SIGNS MEDICATIONS Unknown Medications RESULTS No Results PROCEDURES Procedure Date Ordered Result Body Site [facility] VISIT MENTAL HEALTH ESTAB PT October 26, 2017 Psychotherapy, patient &/family, 45 minutes, established patient October 26, 2017 INSTRUCTIONS MEDICATIONS ADMINISTERED No Known [...]
--- OUTSIDE RECORDS SUMMARY | 2018-08-03 05:43 | XMS REPORT ---
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 Active [id number] Problem Acute pharyngitis 462 Active 806910595 Problem Personality disorder in adult F60.9 Active 79467681 Problem Paranoid personality disorder F60.0 Active 13723014 ALLERGIES No Information ENCOUNTERS Encounter Location Date Diagnosis [facility] [id number] [place] [address] 24016- 9587 Jan, [facility] [id number] [place] [address] 32863- 6331 Jan, [facility] [address] [address] 8792 Jan, [facility] [id number] [place] [address] 64874- 5082 Jan, [facility] [id number] [place] [address] 32537- 1741 Dec, 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 ; Post-traumatic stress disorder, chronic F43.12 ; Paranoid personality disorder F60.0 ; High risk medication use Z79.899 and Personality disorder in adult F60.9 [facility] [id number] [place] [address] 80155- 8454 Dec, Major depressive disorder, recurrent episode, moderate F33.1 ; Paranoid personality disorder F60.0 and 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 [facility] [id number] [place] [address] 73023- 3754 Dec, Major depressive disorder, recurrent episode, moderate F33.1 ; Paranoid personality disorder F60.0 and 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 [facility] [id number] [place] [address] 39679- 5398 Dec, [facility] [id number] [place] [address] 50686- 9505 Nov, [facility] [id number] [place] [address] 36172- 1070 Nov, Major depressive disorder, recurrent episode, moderate F33.1 ; Paranoid personality disorder F60.0 and 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 [facility] [id number] [place] [address] 21461- 7485 Nov, [facility] [id number] [place] [address] 10058- 5813 Nov, [facility] [id number] [place] [address] 34122- 1313 Nov, Major depressive disorder, recurrent episode, moderate F33.1 ; Paranoid personality disorder F60.0 and 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 [facility] [id number] [place] [address] 74614- 1082 Nov, [facility] [id number] [place] [address] 16310- 3242 Nov, [facility] [id number] [place] [address] 00981- 6465 October, 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 ; Post-traumatic stress disorder, chronic F43.12 ; Paranoid personality disorder F60.0 ; High risk medication use Z79.899 and Personality disorder in adult F60.9 [facility] [id number] [place] [address] 06627- 4666 October, Major depressive disorder, recurrent episode, moderate F33.1 ; Paranoid personality disorder F60.0 and 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 [place] [id number] [place] [address] 40085- 3504 October, Major depressive disorder, recurrent episode, moderate F33.1 ; Paranoid personality disorder F60.0 and Illness anxiety disorder 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 [place] [id number] [place] [address] 55926- 1014 Sep, Major depressive disorder, recurrent episode, moderate F33.1 ; Paranoid personality disorder F60.0 and Illness anxiety disorder F45.21 [place] [id number] [place] [address] 19143- 1011 Sep, Major depressive disorder, recurrent episode, moderate F33.1 and Illness anxiety disorder 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 [place] [id number] [place] [address] 15299- 7459 Aug, Major depressive disorder, recurrent episode, moderate F33.1 and Illness anxiety disorder F45.21 [place] [id number] [place] [address] 90701- 6497 Jul, Major depressive disorder, recurrent episode, moderate F33.1 and Illness anxiety disorder F45.21 [place] [id number] [place] [address] 30385- 2983 Jul, Major depressive disorder, recurrent episode, moderate F33.1 and Illness anxiety disorder F45.21 [place] [id number] [place] [address] 12519- 6318 Jun, Major depressive disorder, recurrent episode, moderate F33.1 and Illness anxiety disorder F45.21 [place] [id number] [place] [address]35 Jun, Major depressive disorder, recurrent episode, moderate F33.1 and Illness anxiety disorder F45.21 [place] [id number] [place] [address] 12715- 7166 May, Major depressive disorder, recurrent episode, moderate F33.1 and Illness anxiety disorder F45.21 [facility] [id number] [place] [address] 720925- 9168 May, Major depressive disorder, recurrent episode, moderate F33.1 and Illness anxiety disorder F45.21 [facility] [address] [address]- 5630 Apr, [facility] [id number] [place] [address] 413200- 6536 Apr, Major depressive disorder, recurrent episode, moderate F33.1 and Illness anxiety disorder F45.21 [place] [id number] [place] [address] 329623- 3082 Mar, Major depressive disorder, recurrent episode, moderate F33.1 and Illness anxiety disorder F45.21 [place] [id number] [place] [address] 37931- 7561 Mar, Major depressive disorder, recurrent episode, moderate F33.1 [place] [address] [address]- 9704 Feb, Major depressive disorder, recurrent episode, moderate F33.1 [place] [address] [address]- 6647 Jan, Major depressive disorder, recurrent episode, moderate F33.1 [facility] [address] [address]- 0177 Jan, Major depressive disorder, recurrent episode, moderate F33.1 [facility] [address] [place] [address] 01718- 7586 Dec, Major depressive disorder, recurrent episode, moderate F33.1 [facility] [address] [address]- 9346 Dec, Major depressive disorder, recurrent episode, moderate F33.1 [facility] [id number] [place] [address] [place] [address]- 5686 Jul, Major depressive disorder, recurrent episode, moderate F33.1 [facility] [address] [address]- 1396 Jul, Major depressive disorder, recurrent episode, moderate F33.1 [facility] [address] [address]- 2076 Jun, Major depressive disorder, recurrent episode, moderate F33.1 [facility] [address] [address]- 7338 May, Major depressive disorder, recurrent episode, moderate F33.1 [facility] [address] [address]- 3806 Apr, Major depressive disorder, recurrent episode, moderate F33.1 [facility] [address] 3136 Mar, [facility] [address] 4746 Feb, Major depressive disorder, recurrent episode, moderate F33.1 [facility] [address] [address]16 Jan, Major depressive disorder, recurrent episode, moderate F33.1 [facility] [address] [address]- 7546 Dec, Major depressive disorder, recurrent episode, moderate F33.1 [facility] [address] [address]- 8576 Nov, Major depressive disorder, recurrent episode, moderate F33.1 [facility] [address] [address]- 4836 Jul, Major depressive disorder, recurrent episode, moderate F33.1 [facility] [address] [address]- 8306 Jan, Major depressive disorder, recurrent episode, moderate 296.32 [facility] [id number] [address]- 3343 Jan, Major depressive disorder, recurrent episode, moderate 296.32 [facility] [address] [address]- 2546 Dec, Major depressive disorder, recurrent episode, moderate 296.32 [facility] [address] [address]- 7566 Dec, Major depressive disorder, recurrent episode, moderate 296.32 [facility] [address] [address]- 8118 Nov, Major depressive disorder, recurrent episode, moderate 296.32 [facility] [address] [address] 2546 October, Major depressive disorder, recurrent episode, moderate 296.32 [facility] [address] [address]- 9026 Sep, [facility] [address] [address]- 4246 Sep, [facility] [address] [address]- 2546 30 Aug, 2014 [facility] [address] [address]- 2546 Aug, [facility] [address] [address]- 2546 Aug, [facility] [id number] [address]- 2546 Aug, [facility] [address] [address]- 2546 Aug, [facility] [id number] [address]- 2546 Jul, [facility] [address] [address]- 2417 Jul, [facility] [place] [facility] [address] [id number] [place] [address]- 1380 Jul, [facility] [place] [facility] [address] [id number] [place] [address]- 4096 Jul, [facility] [place] [facility] [address] [facility] [id number] [place] 4999 Jun, [facility] [place] [facility] [address] [id number] [place] [address]- 7520 Jun, [facility] [place] [facility] [address] [id number] [place]18 May, [facility] [place] [facility] [address] [id number] [place] [address]- 3551 May, [facility] [place] [facility] [address] [id number] [place] [address]- 4625 Apr, [facility] [place] [facility] [address] [id number] [place] [address]- 1012 Apr, [facility] [place] [facility] [address] [id number] [place] [address]- 1629 Mar, [facility] [place] [facility] [address] [id number] [place] [address]- 2072 Mar, [facility] [place] [facility] [address] [id number] [address]- 4212 Mar, [facility] [place] [facility] [address] [id number] [address]- 5462 Mar, [facility] [place] [facility] [address] [id number] [place] [address]- 1621 Mar, [facility] [place] [facility] [address] [id number] [address]- 8465 Mar, [facility] [place] [facility] [address] [facility] [id number] [place] 4883 Mar, [facility] [place] [facility] [address] [id number] [place] [address]- 2883 Mar, [facility] [address] [id number] [place] [address]- 7718 Feb, [facility] [place] [facility] [address] [id number] [place] [address]- 4486 Feb, [facility] [place] [facility] [address] [id number] [place] [address]- 5330 Feb, [facility] [place] [facility] [address] [id number] [place] [address]- 9966 Feb, [facility] [place] [facility] [address] [id number] [place] [address]- 7316 Jan, [facility] [place] [facility] [address] [id number] [place] [address]- 8308 Jan, [facility] [place] [facility] [address] [id number] [place] [address]- 7698 Dec, [facility] [place] [facility] [address] [id number] [place] [address]- 1959 Dec, [facility] [place] [facility] [address] [id number] [place] [address]- 4541 Nov, [facility] [place] [facility] [address] [id number] [place] [address]- 1463 Nov, [facility] [place] [facility] [address] [id number] [place] [address]- 7305 October, [facility] [place] [facility] [address] [id number] [place] [address]- 1157 October, [facility] [place] [facility] [address] [id number] [place] [address]- 6848 Sep, [facility] [place] [facility] [address] [id number] [place] [address]- 5553 Sep, [facility] [place] [facility] [address] [id number] [place] [address]- 5161 Aug, [facility] [id number] [address]- 7850 Aug, [facility] [address] [address]- 7806 Jul, [facility] [address] [address]- 6902 Jul, [facility] [address] [address]- 5032 Jun, [facility] [address] [address]- 5293 Jun, [facility] [address] 4914 Mar, [facility] [address] [address]- 7254 Mar, [facility] [address] [address]- 6126 Mar, [facility] [address] [address]- 2291 Mar, [facility] [address] [address]- 7441 Mar, [facility] [id number] [address]- 2518 May, IMMUNIZATIONS No Known Immunizations SOCIAL HISTORY Never Assessed REASON FOR VISIT [facility] PLAN OF CARE Activity Details Follow Up 2 Weeks after last appointment Reason: VITAL SIGNS MEDICATIONS Unknown Medications RESULTS No Results PROCEDURES Procedure Date Ordered Result Body Site [facility] VISIT MENTAL HEALTH ESTAB PT September 15, 2017 Psychotherapy, patient &/family, 45 minutes, established patient September 15, 2017 INSTRUCTIONS MEDICATIONS ADMINISTERED No Known Medications [...]
--- OUTSIDE RECORDS SUMMARY | 2018-08-03 05:43 | XMS REPORT ---
Author Author YON CONSTANTINO Organization [facility] [place] Address [address] [place] [address] Care Team Providers Care Mangle Roller Name Role Phone YON CONSTANTINO Unavailable PROBLEMS Type Condition ICD9-CM Code LZA84-GD Code Onset Dates Condition Status SNOMED Code Problem Paranoid personality disorder F60.0 Active 77889974 Problem Illness anxiety disorder F45.21 Active [id number] Problem Acute pharyngitis 462 Active 880246450 Problem Major depressive disorder, recurrent episode, moderate F33.1 Active [id number] ALLERGIES No Information ENCOUNTERS Encounter Location Date Diagnosis [facility] [place] [id number] [place] [address] 91846- 6177 Dec, [facility] [place] [id number] [place] [address] 48696- 9491 Nov, [facility] [place] [id number] [place] [address] 18723- 0276 Nov, [facility] [place] [id number] [place] [address] 92329- 8561 October, [facility] [place] [id number] [place] [address] 20870- 0779 October, [facility] [place] [id number] [place] [address] 86789- 0696 October, [facility] [place] [id number] [place] [address] 70518- 2727 24 Sep, 2017 Major depressive disorder, recurrent episode, moderate F33.1 ; Paranoid personality disorder F60.0 and Illness anxiety disorder F45.21 [facility] [place] [id number] [place] [address] 15130- 5515 Sep, Major depressive disorder, recurrent episode, moderate F33.1 and Illness anxiety disorder F45.21 [id number] [place] [address] 25976- 2380 Aug, Major depressive disorder, recurrent episode, moderate F33.1 and Illness anxiety disorder F45.21 [place] [id number] [place] [address] 86691- 2115 Jul, Major depressive disorder, recurrent episode, moderate F33.1 and Illness anxiety disorder F45.21 [place] [id number] [place] [address] 73161- 7841 Jul, Major depressive disorder, recurrent episode, moderate F33.1 and Illness anxiety disorder F45.21 [place] [id number] [place] [address] 65574- 3557 Jun, Major depressive disorder, recurrent episode, moderate F33.1 and Illness anxiety disorder F45.21 [place] [id number] [place] [address] 53485- 5679 Jun, Major depressive disorder, recurrent episode, moderate F33.1 and Illness anxiety disorder F45.21 [place] [id number] [place] [address] 29704- 5398 May, Major depressive disorder, recurrent episode, moderate F33.1 and Illness anxiety disorder F45.21 [place] [id number] [place] [address] 78730- 6245 May, Major depressive disorder, recurrent episode, moderate F33.1 and Illness anxiety disorder F45.21 [place] [id number] [place] [address] 37924- 6225 Apr, [place] [id number] [place] [address] 88119- 9205 Apr, Major depressive disorder, recurrent episode, moderate F33.1 and Illness anxiety disorder F45.21 [place] [id number] [place] [address] 03022- 5527 Mar, Major depressive disorder, recurrent episode, moderate F33.1 and Illness anxiety disorder F45.21 [facility] [place] [address] [address] 6624 Mar, Major depressive disorder, recurrent episode, moderate F33.1 [facility] [place] [address] [address]66 Feb, Major depressive disorder, recurrent episode, moderate F33.1 [facility] [place] [id number] [address] 4084 Jan, Major depressive disorder, recurrent episode, moderate F33.1 [facility] [place] [id number] [place] [address] 53736- 9336 Jan, Major depressive disorder, recurrent episode, moderate F33.1 [facility] [place] [address] [address]- 5938 Dec, Major depressive disorder, recurrent episode, moderate F33.1 [facility] [place] [address] [address]- 2833 Dec, Major depressive disorder, recurrent episode, moderate F33.1 [facility] [place] [address] [address]- 3765 Jul, Major depressive disorder, recurrent episode, moderate F33.1 [facility] [place] [address] [address]- 9066 Jul, Major depressive disorder, recurrent episode, moderate F33.1 [facility] [place] [address] [address]- 0814 Jun, Major depressive disorder, recurrent episode, moderate F33.1 [facility] [place] [address] [address]236 May, Major depressive disorder, recurrent episode, moderate F33.1 [facility] [place] [address] [address]- 4339 Apr, Major depressive disorder, recurrent episode, moderate F33.1 [facility] [place] [address] 4976 Mar, [facility] [place] [address] 3536 Feb, Major depressive disorder, recurrent episode, moderate F33.1 [facility] [place] [address] 8336 Jan, Major depressive disorder, recurrent episode, moderate F33.1 [facility] [place] [address] 6548 Dec, Major depressive disorder, recurrent episode, moderate F33.1 [facility] [place] [address] 9533 Nov, Major depressive disorder, recurrent episode, moderate F33.1 [facility] [place] [address] 0142 Jul, Major depressive disorder, recurrent episode, moderate F33.1 [facility] [place] [address] [address]- 2232 Jan, Major depressive disorder, recurrent episode, moderate 296.32 [facility] [place] [address] [address]- 3892 Jan, Major depressive disorder, recurrent episode, moderate 296.32 [facility] [place] [address] 7404 Dec, Major depressive disorder, recurrent episode, moderate 296.32 [facility] [place] [address] [address]- 6703 Dec, Major depressive disorder, recurrent episode, moderate 296.32 [facility] [place] [address] 9241 Nov, Major depressive disorder, recurrent episode, moderate 296.32 [facility] [place] [address] [address]- 5328 October, Major depressive disorder, recurrent episode, moderate 296.32 [facility] [address] [id number] [place] [address]- 0733 14 Sep, 2014 [facility] [address] [id number] [place] [address]- 9907 Sep, [facility] [address] [id number] [place] [address]- 8100 30 Aug, 2014 [facility] [address] [id number] [place] [address]- 2013 Aug, [facility] [id number] [place] [address], [place] [address]- 6404 Aug, [facility] [address] [place] [address]- 0953 Aug, [facility] [id number] [place] [address] 173511- 1972 Aug, [facility] [address] [address]- 4314 Jul, [facility] [address] [place] [address]- 2200 Jul, [facility] [address] [address]- 0974 Jul, [facility] [address] [address]- 1765 Jul, [facility] [id number] [address]- 0787 Jun, [facility] [address] [address]- 7080 Jun, [facility] [address] [address]- 4406 May, [facility] [address] [address]- 8989 May, [facility] [place] [facility] [address] [id number] [place] [address]- 2833 Apr, [facility] [place] [facility] [address] [id number] [place] [address]- 2215 Apr, [facility] [place] [facility] [address] [id number] [place] [address]- 1707 Mar, [facility] [place] [facility] [address] [id number] [place] [address]- 2012 Mar, [facility] [place] [facility] [address] [id number] [place] [address]- 9280 Mar, [facility] [place] [facility] [address] [id number] [place] [address]- 4977 Mar, [facility] [place] [facility] [address] [id number] [place] [address]- 2209 Mar, [facility] [place] [facility] [address] [id number] [place] [address]- 8972 Mar, [facility] [place] [facility] [address] [id number] [place] [address]- 7627 Mar, [facility] [place] [facility] [address] [id number] [place] [address]- 2685 Mar, [facility] [place] [facility] [address] [id number] [place] [address]- 3852 Feb, [facility] [place] [facility] [address] [id number] [place] [address]- 2940 Feb, [facility] [place] [facility] [address] [id number] [place] [address]- 2145 Feb, [facility] [place] [facility] [address] [id number] [place] [address]- 5538 Feb, [facility] [place] [facility] [address] [id number] [place] [address]- 5955 Jan, [facility] [place] [facility] [address] [id number] [place] [address]- 3464 Jan, [facility] [place] [facility] [address] [id number] [place] [address]- 4262 Dec, [facility] [place] [facility] [address] [id number] [place] [address]- 5556 Dec, [facility] [place] [facility] [address] [id number] [place] [address]- 4169 Nov, [facility] [place] [facility] [address] [id number] [place] [address]- 2849 Nov, [facility] [place] [facility] [address] [id number] [place] [address]- 6862 October, [facility] [place] [facility] [address] [id number] [place] [address]- 6061 October, [facility] [place] [facility] [address] [id number] [place] [address]- 5544 Sep, [facility] [place] [facility] [address] [id number] [place] [address]- 1777 Sep, [facility] [place] [facility] [address] [id number] [place] [address]- 2063 Aug, [facility] [place] [facility] [address] [id number] [place] [address]- 4784 Aug, [facility] [place] [facility] [address] [id number] [place] [address]- 0179 Jul, [facility] [place] [facility] [address] [id number] [place] [address]- 9149 Jul, [facility] [place] [facility] [address] [id number] [place] [address]- 0015 Jun, [facility] [place] [facility] [address] [id number] [place] [address]- 2696 Jun, [facility] [place] [facility] [address] [id number] [place] [address]- 0620 Mar, [facility] [place] [address] [id number] [place] [address]- 0933 Mar, [facility] [place] [address] [id number] [place] 4960 Mar, [facility] [place] [address] [id number] [place]- 0235 Mar, [facility] [place] [address] [id number] [place] [address]- 6449 Mar, [facility] [place] [address] [id number] [place] [address]- 1652 May, IMMUNIZATIONS No Known Immunizations SOCIAL HISTORY Never Assessed REASON FOR VISIT [facility] PLAN OF CARE Activity Details Follow Up 2 Weeks after last appointment Reason: VITAL SIGNS MEDICATIONS Unknown Medications RESULTS No Results PROCEDURES Procedure Date Ordered Result Body Site [facility] VISIT [facility] ESTAB PT Mar 25, 2017 Psychotherapy, patient &/family, 45 minutes, established patient Mar 25, 2017 INSTRUCTIONS MEDICATIONS ADMINISTERED No Known Medications [...]
--- OUTSIDE RECORDS SUMMARY | 2018-08-03 05:43 | XMS REPORT ---
Author Author YON CONSTANTINO Organization [facility] Address [address] [place] [address] Care Team Providers Care Bend Up Name Role Phone YON CONSTANTINO Unavailable PROBLEMS Type Condition ICD9-CM Code [id number] Code Onset Dates Condition Status SNOMED Code Problem Major depressive disorder, recurrent episode, moderate F33.1 Active 801795741 Problem Post-traumatic stress disorder, chronic F43.12 Active 886223763 Problem High risk medication use Z79.899 Active 046249497465598 Problem Illness anxiety disorder F45.21 Active 38043571396411792 Problem Acute pharyngitis 462 Active 028861182 Problem Personality disorder in adult F60.9 Active 25930721 Problem Paranoid personality disorder F60.0 Active [id number] ALLERGIES No Information ENCOUNTERS Encounter Location Date Diagnosis [facility] [address] [address] Jan, [facility] [id number] [place] [address] Jan, [facility] [address] [address] Jan, [facility] [address] [address] Jan, [facility] [address] [address] Jan, [facility] [id number] [place] [address]- 8435 Dec, [facility] [address] [address] Dec, [facility] [id number] [address] Dec, Major depressive disorder, recurrent episode, moderate F33.1 ; Paranoid personality disorder F60.0 and 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 [facility] [address] [address] Dec, [facility] [id number] [place] [address]38- 9779 Nov, [facility] [id number] [place] [address] 34702- 0660 Nov, Major depressive disorder, recurrent episode, moderate F33.1 ; Paranoid personality disorder F60.0 and Illness anxiety disorder 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 [facility] [id number] [place] [address] 012[address]- 6197 Nov, [facility] [id number] [place] [address] 59729- 2760 Nov, [facility] [id number] [place] [address] 30035- 1700 Nov, Major depressive disorder, recurrent episode, moderate F33.1 ; Paranoid personality disorder F60.0 and Illness anxiety disorder 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 [facility] [address] [address] Nov, [facility] [address] [place] [address] 69180- 9890 Nov, [facility] [id number] [place] [address] 84167- 1654 October, 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 ; Post-traumatic stress disorder, chronic F43.12 ; Paranoid personality disorder F60.0 ; High risk medication use Z79.899 and Personality disorder in adult F60.9 [facility] [address] [address] October, Major depressive disorder, recurrent episode, moderate F33.1 ; Paranoid personality disorder F60.0 and 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 [facility] [address] [address] October, Major depressive disorder, recurrent episode, moderate F33.1 ; Paranoid personality disorder F60.0 and Illness anxiety disorder F45.21 [facility] [address] [address] Sep, Major depressive disorder, recurrent episode, moderate F33.1 ; Paranoid personality disorder F60.0 and Illness anxiety disorder 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 [facility] [id number] [place] [address] 79880- 4998 Sep, Major depressive disorder, recurrent episode, moderate F33.1 and Illness anxiety disorder 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 [facility] [id number] [place] [address]13- 7566 Aug, Major depressive disorder, recurrent episode, moderate F33.1 and Illness anxiety disorder F45.21 [facility] [id number] [place] [address] 74366- 7738 Jul, Major depressive disorder, recurrent episode, moderate F33.1 and Illness anxiety disorder F45.21 [facility] [id number] [place] [address] 19025- 6962 14 Jul, 2017 Major depressive disorder, recurrent episode, moderate F33.1 and Illness anxiety disorder F45.21 [facility] [address] [place] [address] 30950- 6292 Jun, Major depressive disorder, recurrent episode, moderate F33.1 and Illness anxiety disorder F45.21 [facility] [address] [address] Jun, Major depressive disorder, recurrent episode, moderate F33.1 and Illness anxiety disorder F45.21 [facility] [id number] [place] [address] 34750- 7682 May, Major depressive disorder, recurrent episode, moderate F33.1 and Illness anxiety disorder F45.21 [facility] [address] [address] [address] May, Major depressive disorder, recurrent episode, moderate F33.1 and Illness anxiety disorder F45.21 [facility] [address] [address] Apr, [facility] [address] [address] [address] Apr, Major depressive disorder, recurrent episode, moderate F33.1 and Illness anxiety disorder F45.21 [facility] [id number] [address] 7393 Mar, Major depressive disorder, recurrent episode, moderate F33.1 and Illness anxiety disorder 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 [facility] [address] [address] 3939 Mar, Major depressive disorder, recurrent episode, moderate F33.1 [facility] [address] [address]- [address] Feb, Major depressive disorder, recurrent episode, moderate F33.1 [facility] [address] [address]- 9396 Jan, Major depressive disorder, recurrent episode, moderate F33.1 [facility] [address] [address]- 9579 Jan, Major depressive disorder, recurrent episode, moderate F33.1 [facility] [address] [address]- 6084 Dec, Major depressive disorder, recurrent episode, moderate F33.1 [facility] [id number] [address] Dec, Major depressive disorder, recurrent episode, moderate F33.1 [facility] [id number] [address]- 6666 Jul, Major depressive disorder, recurrent episode, moderate F33.1 [facility] [id number] [place] [address], [place] [address] 2546 Jul, Major depressive disorder, recurrent episode, moderate F33.1 [facility] [address] [place] [address]- [address] Jun, Major depressive disorder, recurrent episode, moderate F33.1 [facility] [address] [place] [address]- 3086 May, Major depressive disorder, recurrent episode, moderate F33.1 [facility] [address] [place] [address]- 6276 Apr, Major depressive disorder, recurrent episode, moderate F33.1 [facility] [address] [place] [address]- 8176 Mar, [facility] [address] [address]- 1116 Feb, Major depressive disorder, recurrent episode, moderate F33.1 [facility] [address] [address]- 5389 Jan, Major depressive disorder, recurrent episode, moderate F33.1 [facility] [address] [address]- 5116 Dec, Major depressive disorder, recurrent episode, moderate F33.1 [facility] [address] [address]- 9846 Nov, Major depressive disorder, recurrent episode, moderate F33.1 [facility] [address] [address]- 5076 Jul, Major depressive disorder, recurrent episode, moderate F33.1 [facility] [address] [place] [address]- 4636 Jan, Major depressive disorder, recurrent episode, moderate 296.32 [facility] [address] [address]- 2436 Jan, Major depressive disorder, recurrent episode, moderate 296.32 [facility] [id number] [address]- 3604 Dec, Major depressive disorder, recurrent episode, moderate 296.32 [facility] [address] [address]- 5226 Dec, Major depressive disorder, recurrent episode, moderate 296.32 [facility] [address] [address]- 3698 Nov, Major depressive disorder, recurrent episode, moderate 296.32 [facility] [address] [address]- 0833 October, Major depressive disorder, recurrent episode, moderate 296.32 [facility] [address] [address]- 2016 Sep, [facility] [address] [address]- 8586 Sep, [facility] [address] [address]- 8330 Aug, [facility] [address] [address]- 1367 Aug, [facility] [address] [address]- 3376 Aug, [facility] [address] [address]- 0946 Aug, [facility] [address] [address]- 2546 Aug, [facility] [address] [address]- 2546 Jul, [facility] [address] [address]- 2546 Jul, [facility] [id number] [address]- 2546 Jul, [facility] [place] [facility] [address] [id number] [place] [address]- 6317 Jul, [facility] [place] [facility] [address] [id number] [place] [address]- 8439 Jun, [facility] [place] [facility] [address] [id number] [place] [address]- 0845 Jun, [facility] [place] [facility] [address] [id number] [place] [address]- 8090 May, [facility] [place] [facility] [address] [id number] [place] [address]- 3949 May, [facility] [place] [facility] [address] [id number] [place] [address]- 7019 Apr, [facility] [place] [facility] [address] [id number] [place] [address]- 6438 Apr, [facility] [place] [facility] [address] [id number] [place] [address]- 8889 Mar, [facility] [place] [facility] [address] [id number] [place] [address]- 8048 Mar, [facility] [place] [facility] [address] [id number] [place] [address]- 5228 Mar, [facility] [place] [facility] [address] [id number] [place] [address]- 2626 Mar, [facility] [place] [facility] [address] [id number] [place] [address]- 9094 Mar, [facility] [place] [facility] [address] [id number] [place] [address]- 0386 Mar, [facility] [place] [facility] [address] [id number] [place] [address]- 4991 Mar, [facility] [place] [facility] [address] [id number] [place] [address] Mar, [facility] [place] [facility] [address] [id number] [place] [address]- 5470 Feb, [facility] [place] [facility] [address] [id number] [place] [address]- 5350 Feb, [facility] [place] [facility] [address] [id number] [place] [address]- 6144 Feb, [facility] [place] [facility] [address] [id number] [place] [address]- 6186 Feb, [facility] [place] [facility] [address] [id number] [place] [address]- 8934 Jan, [facility] [place] [facility] [address] [id number] [place] [address]- 5801 Jan, [facility] [place] [facility] [address] [id number] [place] [address]- 4857 Dec, [facility] [place] [facility] [address] [id number] [place] [address]- 6287 Dec, [facility] [place] [facility] [address] [id number] [place] [address]- 9230 Nov, [facility] [place] [facility] [address] [id number] [place] [address]- 6172 Nov, [facility] [place] [facility] [address] [id number] [place] [address]- 2058 October, [facility] [place] [facility] [address] [id number] [place] [address]- 3019 October, [facility] [place] [facility] [address] [id number] [place] [address]- 1086 Sep, [facility] [place] [facility] [address] [id number] [place] [address]- 4812 Sep, [facility] [place] [facility] [address] [id number] [place] [address]- 9886 Aug, [facility] [place] [facility] [address] [id number] [place] [address]- 6782 Aug, [facility] [place] [facility] [id number] [address] Jul, [facility] [id number] [address]41 Jul, [facility] [address] 120[address] Jun, [facility] [id number] [address]36 Jun, [facility] [address] [address] Mar, [facility] [address] [address]- 6370 Mar, [facility] [address] Mar, [facility] [address] Mar, [facility] [id number] [address]- 2992 Mar, [facility] [id number] [address] May, IMMUNIZATIONS No Known Immunizations SOCIAL HISTORY Never Assessed REASON FOR VISIT [facility] PLAN OF CARE Activity Details Follow Up 2 Weeks after last appointment Reason: VITAL SIGNS MEDICATIONS Unknown Medications RESULTS No Results PROCEDURES Procedure Date Ordered Result Body Site [facility]IS[facility] ESTAB PT August 24, 2017 Psychotherapy, patient &/family, 45 minutes, established patient August 24, 2017 INSTRUCTIONS MEDICATIONS ADMINISTERED No Known [...]
--- OUTSIDE RECORDS SUMMARY | 2018-08-03 05:43 | XMS REPORT ---
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 Active 24959378088473806 Problem Acute pharyngitis 462 Active 907203791 Problem Personality disorder in adult F60.9 Active 72528420 Problem Paranoid personality disorder F60.0 Active 01141484 ALLERGIES Substance Reaction Event Type Date Status Sulfa Drugs Unknown Non Drug Allergy Sep, Active Latex Unknown Non Drug Allergy Sep, Active ENCOUNTERS Encounter Location Date Diagnosis [facility] [id number] [place] [address] 92006- 5033 Mar, [facility] [id number] [place] [address] 98237- 0285 Feb, [facility] [id number] [place] [address] 31603- 1636 Jan, [facility] [id number] [place] [address] 92355- 9973 Jan, [facility] [id number] [place] [address] 49393- 9642 Jan, [facility] [id number] [place] [address] 91254- 9507 Jan, [facility] [id number] [place] [address] 52313- 4180 Jan, Major depressive disorder, recurrent episode, moderate F33.1 ; Paranoid personality disorder F60.0 and Illness anxiety disorder F45.21 [facility] [address] [address] Dec, 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 ; Post-traumatic stress disorder, chronic F43.12 ; Paranoid personality disorder F60.0 ; High risk medication use Z79.899 and Personality disorder in adult F60.9 [facility] [id number] [place] [address] 98927- 1493 Dec, Major depressive disorder, recurrent episode, moderate F33.1 ; Paranoid personality disorder F60.0 and Illness anxiety disorder F45.21 [facility] [address], [place] [address] Dec, Major depressive disorder, recurrent episode, moderate F33.1 ; Paranoid personality disorder F60.0 and Illness anxiety disorder F45.21 [facility] [id number] [address] Dec, [facility] [id number] [address] Nov, [facility] [address], [place] [address] Nov, Major depressive disorder, recurrent episode, moderate F33.1 ; Paranoid personality disorder F60.0 and Illness anxiety disorder F45.21 [facility] [address], [place] [address] 39[address] Nov, [facility] [id number] [place] [address] 67625- 6164 Nov, [facility] [id number] [place] [address] 44026- 3717 Nov, Major depressive disorder, recurrent episode, moderate F33.1 ; Paranoid personality disorder F60.0 and Illness anxiety disorder F45.21 [facility] [address] [address] Nov, [facility] [id number] [place] [address] 96767- 6350 Nov, [facility] [id number] [place] [address] 06164- 7166 October, 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 ; Post-traumatic stress disorder, chronic F43.12 ; Paranoid personality disorder F60.0 ; High risk medication use Z79.899 and Personality disorder in adult F60.9 [facility] [address] [place] [address] 56456- 4223 October, Major depressive disorder, recurrent episode, moderate F33.1 ; Paranoid personality disorder F60.0 and Illness anxiety disorder F45.21 [facility] [id number] [place] [address] 79915- 1487 October, Major depressive disorder, recurrent episode, moderate F33.1 ; Paranoid personality disorder F60.0 and Illness anxiety disorder F45.21 [facility] [address] [address]- 67[address] Sep, Major depressive disorder, recurrent episode, moderate F33.1 ; Paranoid personality disorder F60.0 and Illness anxiety disorder F45.21 [facility] [address] [address]- 7185 Sep, Major depressive disorder, recurrent episode, moderate F33.1 and Illness anxiety disorder F45.21 [facility] [address], [place] [address] 5694 Aug, Major depressive disorder, recurrent episode, moderate F33.1 and Illness anxiety disorder F45.21 [facility] [id number] [place] [address] 23031- 2510 28 Jul, 2017 Major depressive disorder, recurrent episode, moderate F33.1 and Illness anxiety disorder F45.21 [facility] [address] [place] [address] 92845- 5693 Jul, Major depressive disorder, recurrent episode, moderate F33.1 and Illness anxiety disorder F45.21 [facility] [address] [place] [address] 14097- 7372 Jun, Major depressive disorder, recurrent episode, moderate F33.1 and Illness anxiety disorder F45.21 [facility] [id number] [place] [address] 40467- 4616 Jun, Major depressive disorder, recurrent episode, moderate F33.1 and Illness anxiety disorder F45.21 [facility] [id number] [place] [address] 78547- 8612 May, Major depressive disorder, recurrent episode, moderate F33.1 and Illness anxiety disorder F45.21 [facility] [id number] [place] [address] 73434- 8516 May, Major depressive disorder, recurrent episode, moderate F33.1 and Illness anxiety disorder F45.21 [facility] [id number] [place] [address] 48349- 5062 Apr, [facility] [id number] [place] [address] 33274- 3617 Apr, Major depressive disorder, recurrent episode, moderate F33.1 and Illness anxiety disorder F45.21 [facility] [address] [place] [address] 94950- 5584 Mar, Major depressive disorder, recurrent episode, moderate F33.1 and Illness anxiety disorder F45.21 [facility] [address] [place] [address] 96580- 9295 Mar, Major depressive disorder, recurrent episode, moderate F33.1 [facility] [id number] [place] [address] 33224- 2635 Feb, Major depressive disorder, recurrent episode, moderate F33.1 [facility] [address], [place] [address]- 3075 Jan, Major depressive disorder, recurrent episode, moderate F33.1 [facility] [id number] [address]- 8859 Jan, Major depressive disorder, recurrent episode, moderate F33.1 [facility] [id number] [address]- 2496 Dec, Major depressive disorder, recurrent episode, moderate F33.1 [facility] [address], [place] [address]- 1026 Dec, Major depressive disorder, recurrent episode, moderate F33.1 [facility] [address], [place] [address]- 9776 Jul, Major depressive disorder, recurrent episode, moderate F33.1 [facility] [id number] [address]- 2806 Jul, Major depressive disorder, recurrent episode, moderate F33.1 [facility] [address], [place] [address]- 4421 Jun, Major depressive disorder, recurrent episode, moderate F33.1 [facility] [address] [address]- 2476 May, Major depressive disorder, recurrent episode, moderate F33.1 [facility] [address], [place] [address]- 0017 Apr, Major depressive disorder, recurrent episode, moderate F33.1 [facility] [address], [place] [address]- 2686 Mar, [facility] [id number] [address]- 4576 13 Feb, 2016 Major depressive disorder, recurrent episode, moderate F33.1 [facility] [id number] [address] Jan, Major depressive disorder, recurrent episode, moderate F33.1 [facility] [address], [place] [address]- 2861 Dec, Major depressive disorder, recurrent episode, moderate F33.1 [facility] [address], [place] [address]- 9346 Nov, Major depressive disorder, recurrent episode, moderate F33.1 [facility] [address] [place] [address]- 2546 Jul, Major depressive disorder, recurrent episode, moderate F33.1 [facility] [address] [address]- 2506 Jan, Major depressive disorder, recurrent episode, moderate 296.32 [facility] [address] [address]- 8056 Jan, Major depressive disorder, recurrent episode, moderate 296.32 [facility] [address] [place] [address]- 1496 Dec, Major depressive disorder, recurrent episode, moderate 296.32 [facility] [address], [place] [address]- 4527 Dec, Major depressive disorder, recurrent episode, moderate 296.32 [facility] [address], [place] [address]- 0676 Nov, Major depressive disorder, recurrent episode, moderate 296.32 [facility] [address] [place] [address]- 6756 October, Major depressive disorder, recurrent episode, moderate 296.32 [facility] [address], [place] [address]- 8236 Sep, [facility] [address], [place] [address]- 2076 Sep, [facility] [address] [place] [address]- 2546 30 Aug, 2014 [facility] [address], [place] [address]- 4576 Aug, [facility] [place] [facility] [address] [id number] [place] [address]- 9665 Aug, 2014 [facility] [place] [facility] [address] [id number] [place] [address]- 6591 Aug, 2014 [facility] [place] [facility] [address] [id number] [place] [address]- 3327 Aug, 2014 [facility] [place] [facility] [address] [id number] [place] [address]- 4037 Jul, 2014 [facility] [place] [facility] [address] [id number] [place] [address]- 7231 Jul, 2014 [facility] [place] [facility] [address] [id number] [place] [address]- 7028 Jul, [facility] [place] [facility] [address] [id number] [place] [address]- 0390 Jul, [facility] [place] [facility] [address] [id number] [place] [address]- 8623 Jun, [facility] [place] [facility] [address] [id number] [place] [address]- 1342 Jun, [facility] [place] [facility] [address] [facility] [id number] [place] [address]- 8717 May, [facility] [place] [facility] [address] [id number] [place] [address]- 2012 May, [facility] [place] [facility] [address] [id number] [place] [address]- 0169 Apr, [facility] [place] [facility] [address] [id number] [place] [address]- 3255 Apr, [facility] [place] [facility] [address] [id number] [place] [address]- 1806 Mar, [facility] [place] [facility] [address] [id number] [place] [address]- 6667 Mar, [facility] [place] [facility] [address] [id number] [place] [address]- 7457 Mar, [facility] [place] [facility] [address] [id number] [place] [address]- 5474 Mar, [facility] [place] [facility] [address] [id number] [place] [address]- 4429 Mar, [facility] [place] [facility] [address] [id number] [place] [address]- 4460 Mar, [facility] [place] [facility] [address] [id number] [place] [address] Mar, [facility] [place] [facility] [address] [id number] [place] [address]- 5867 Mar, [facility] [place] [facility] [address] [id number] [place] [address]- 2531 Feb, [facility] [place] [facility] [address] [id number] [place] [address]- 1782 Feb, [facility] [place] [facility] [address] [id number] [place] [address]- 9646 Feb, [facility] [place] [facility] [address] [id number] [place] [address]- 1541 Feb, [facility] [place] [facility] [address] [id number] [place] [address]- 1791 Jan, [facility] [place] [facility] [address] [id number] [place] [address]- 5101 Jan, [facility] [place] [facility] [address] [id number] [place] [address]- 9741 Dec, [facility] [place] [facility] [address] [id number] [place] [address]- 5244 Dec, [facility] [place] [facility] [address] [id number] [place] [address]- 3074 Nov, [facility] [place] [facility] [address] [id number] [place] [address]- 6048 Nov, [facility] [place] [facility] [address] [id number] [place] [address]- 9116 October, [facility] [address] [id number] [place] [address]- 1163 October, [facility] [place] [facility] [address] [id number] [place] [address]- 5442 Sep, [facility] [place] [facility] [address] [id number] [place] [address]- 8594 Sep, [facility] [place] [facility] [address] [id number] [place] [address]- 2100 Aug, [facility] [place] [facility] [address] [id number] [place] [address]- 6355 Aug, [facility] [place] [facility] [address] [id number] [place] [address]- 7575 Jul, [facility] [place] [facility] [address] [id number] [place] [address]- 1092 Jul, [facility] [place] [facility] [address] [id number] [place] [address]- 4616 Jun, [facility] [place] [facility] [address] [id number] [place] [address]- 3584 Jun, [facility] [place] [facility] [address] [id number] [place] [address]- 5249 Mar, [facility] [place] [facility] [address] [id number] [place] [address]- 0774 Mar, [facility] [place] [facility] [address] [id number] [place] [address]- 8376 Mar, [facility] [place] [facility] [address] [id number] [place] [address]- 3856 Mar, [facility] [place] [facility] [address] [id number] [place] [address]- 2546 Mar, [facility] [place] [facility] [address] [id number] [place] [address]- 0496 May, IMMUNIZATIONS No Known Immunizations SOCIAL HISTORY Never Assessed REASON FOR VISIT f/u PLAN OF CARE Activity Details Follow Up 2 Weeks after last appointment Reason: VITAL SIGNS MEDICATIONS Medication Instructions Dosage Frequency Start Date End Date Duration Status Seroquel 100 mg take 1 tablet (100 mg) by oral route 2 times per day Mar, Active Lipitor 20 mg 1 tablet by Oral route 1 time per day Mar, Active Metoprolol Tartrate 25 mg Tablet by Oral route 2 daily Mar, Active Effexor XR 150 mg take 1 capsule by Oral route 2 times per day Mar, Active Nexium 40 mg take 1 capsule (40 mg) by oral route once daily Mar, Not-Taking cyclobenzaprine 10 mg take 1 tablet (10 mg) by oral route 3 times per day Mar, Active trazodone 100 mg take 1 tablet (100 mg) by oral route 2 times per day after meals Mar, Active Savella 10 1 Tablet 1 time per day 10MG TABLET Mar, Active Amoxicillin 500 mg 1 capsule by Oral route 3 times per day for 10 days Mar, Not-Taking Diazepam 5 mg 2 tablet by Oral route 3 times per day Mar, Active MiraLax 17 gram/dose take 8.5 g mixed with 8 oz. water or juice by Oral route 1 time per day Mar, Not-Taking ProAir HFA 90 mcg/actuation inhale 2 puffs by Inhalation route every 4 hours as needed PRN shortness of breath/cough Mar, Active RESULTS No Results PROCEDURES Procedure Date Ordered Result Body Site [facility] VISIT MENTAL HEALTH ESTAB PT September 28, 2017 Psychotherapy, patient &/family, 45 minutes, established patient September 28, 2017 INSTRUCTIONS MEDICATIONS ADMINISTERED No Known Medications [...]
--- OUTSIDE RECORDS SUMMARY | 2018-08-03 05:44 | XMS REPORT ---
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 Active 27307963622922103 Problem Acute pharyngitis 462 Active 760228296 Problem Major depressive disorder, recurrent episode, moderate F33.1 Active [id number] ALLERGIES No Information ENCOUNTERS Encounter Location Date Diagnosis [place] [id number] [place] [address] 52797- 1206 October, [facility] [id number] [place] [address] 74479- 2433 October, [place] [id number] [place] [address] 47953- 1869 October, [facility] [id number] [place] [address] 10657- 0653 Sep, Major depressive disorder, recurrent episode, moderate F33.1 ; Paranoid personality disorder F60.0 and 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 [facility] [id number] [place] [address] 69838- 8572 Sep, Major depressive disorder, recurrent episode, moderate F33.1 and 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 [facility] [id number] [place] [address] 89762- 1387 Aug, Major depressive disorder, recurrent episode, moderate F33.1 and 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 [place] [id number] [place] [address] 75836- 0100 Jul, Major depressive disorder, recurrent episode, moderate F33.1 and 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 [place] [address] [place] [address] 20955- 7315 Jul, Major depressive disorder, recurrent episode, moderate F33.1 and 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 [place] [address] [place] [address] 79511- 9049 Jun, Major depressive disorder, recurrent episode, moderate F33.1 and 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 [place] [id number] [place] [address] 42542- 9790 Jun, Major depressive disorder, recurrent episode, moderate F33.1 and Illness anxiety disorder 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 [place] [id number] [place] [address] 95062- 0396 May, Major depressive disorder, recurrent episode, moderate F33.1 and Illness anxiety disorder 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 [place] [id number] [place] [address] 72372- 9873 May, Major depressive disorder, recurrent episode, moderate F33.1 and Illness anxiety disorder 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 [place] [address] [place] [address] 14989- 7227 Apr, [place] [address] [address] Apr, Major depressive disorder, recurrent episode, moderate F33.1 and 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 [place] [address] [place] [address] 08794- 7542 Mar, Major depressive disorder, recurrent episode, moderate F33.1 and 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 [place] [address] [place] [address] 63897- 4516 Mar, Major depressive disorder, recurrent episode, moderate F33.1 [place] [address] [place] [address] 30075- 1210 Feb, Major depressive disorder, recurrent episode, moderate F33.1 [facility] [address] [facility] [id number] [address] Jan, Major depressive disorder, recurrent episode, moderate F33.1 [facility] [address] [facility] [id number] [place] [address] Jan, Major depressive disorder, recurrent episode, moderate F33.1 [facility] [address] [facility] [id number] [address]888 Dec, Major depressive disorder, recurrent episode, moderate F33.1 [facility] [address] [facility] [id number] [address]25 Dec, Major depressive disorder, recurrent episode, moderate F33.1 [facility] [id number] 8726 Jul, Major depressive disorder, recurrent episode, moderate F33.1 [facility] [id number] [address]- 8697 Jul, Major depressive disorder, recurrent episode, moderate F33.1 [facility] [id number] 9606 Jun, Major depressive disorder, recurrent episode, moderate F33.1 [facility] [address] [address] 7626 May, Major depressive disorder, recurrent episode, moderate F33.1 [facility] [address] [facility] [id number], [place] [address]- 7496 Apr, Major depressive disorder, recurrent episode, moderate F33.1 [facility] [id number] [place] [address] 8146 Mar, [facility] [address] [facility] [id number], [place] [address]- 7296 13 Feb, 2016 Major depressive disorder, recurrent episode, moderate F33.1 [facility] [address] [id number] [address] 0656 Jan, Major depressive disorder, recurrent episode, moderate F33.1 [facility] [address] [address]- 6356 Dec, Major depressive disorder, recurrent episode, moderate F33.1 [facility] [address] [address]- 9276 Nov, Major depressive disorder, recurrent episode, moderate F33.1 [facility] [address] [address]- 0307 Jul, Major depressive disorder, recurrent episode, moderate F33.1 [facility] [address], [place] [address]- 6246 Jan, Major depressive disorder, recurrent episode, moderate 296.32 [facility] [address] [address]- 2429 Jan, Major depressive disorder, recurrent episode, moderate 296.32 [facility] [address] 6440 Dec, Major depressive disorder, recurrent episode, moderate 296.32 [facility] [address] 4353 Dec, Major depressive disorder, recurrent episode, moderate 296.32 [facility] [address] [address]64 Nov, Major depressive disorder, recurrent episode, moderate 296.32 [facility] [id number] 6377 October, Major depressive disorder, recurrent episode, moderate 296.32 [facility] [address] [address]- 9574 Sep, [facility] [address] [id number] 4194 Sep, [facility] [id number] [place] [address]- 6044 Aug, [facility] [place] [facility] [address] [id number] [place] [address]- 7720 Aug, [facility] [place] [facility] [address] [id number] [place] [address]- 6096 Aug, 2014 [facility] [place] [facility] [address] [id number] [place] [address]- 7725 Aug, 2014 [facility] [place] [facility] [address] [id number] [place] [address]- 3551 Aug, [facility] [place] [facility] [address] [id number] [place] [address]- 7816 Jul, 2014 [facility] [place] [facility] [address] [facility] [id number] [place] [address]- 7226 Jul, 2014 [facility] [place] [facility] [address] [facility] [id number] [place] [address]- 6474 Jul, [facility] [place] [facility] [address] [facility] [id number] [place] [address]- 1834 Jul, [facility] [place] [facility] [address] [facility] [id number] [place] [address]- 3009 Jun, [facility] [place] [facility] [address] [facility] [id number] [place] [address]- 3702 Jun, [facility] [place] [facility] [address] [facility] [id number] [place] [address]- 3112 May, [facility] [place] [facility] [address] [id number] [place] [address]- 7339 May, [facility] [place] [facility] [address] [id number] [place] [address]- 3421 Apr, [facility] [place] [facility] [address] [facility] [id number] [place] [address]- 2546 Apr, [facility] [place] [facility] [address] [facility] [id number] [place] [address]- 8037 Mar, [facility] [place] [facility] [address] [id number] [place] [address]- 1183 Mar, [facility] [place] [facility] [address] [id number] [place] [address]- 0812 Mar, [facility] [place] [facility] [address] [id number] [place] [address]52 Mar, [facility] [place] [facility] [address] [id number] [place] [address]- 6688 Mar, [facility] [place] [facility] [address] [id number] [place] [address]- 5447 Mar, [facility] [place] [facility] [address] [id number] [place] [address]- 4292 Mar, [facility] [place] [facility] [address] [id number] [place] [address]- 4649 Mar, [facility] [place] [facility] [address] [id number] [place] [address]- 1462 Feb, [facility] [place] [facility] [address] [id number] [place] [address]- 0150 Feb, [facility] [place] [facility] [address] [id number] [place] [address]- 2645 Feb, [facility] [place] [facility] [address] [id number] [place] [address]- 8105 Feb, [facility] [place] [facility] [address] [id number] [place] [address]- 1428 Jan, [facility] [place] [facility] [address] [id number] [place] [address]- 7777 Jan, [facility] [place] [facility] [address] [id number] [place] [address]- 9390 Dec, [facility] [place] [facility] [address] [id number] [place] [address]- 6018 Dec, [facility] [place] [facility] [address] [id number] [place] [address]- 4276 Nov, [facility] [place] [facility] [address] [id number] [place] [address]- 8209 Nov, [facility] [place] [facility] [address] [id number] [place] [address]322 October, [facility] [place] [facility] [address] [id number] [place] [address]- 7995 October, [facility] [place] [facility] [address] [id number] [place] [address]- 8036 Sep, [facility] [place] [facility] [address] [id number] [place] [address]- 9164 Sep, [facility] [place] [facility] [address] [id number] [place] [address]- 6588 Aug, [facility] [place] [facility] [address] [id number] [place] [address]- 3358 Aug, [facility] [place] [facility] [address] [id number] [place] [address]- 3365 Jul, [facility] [place] [facility] [address] [id number] [place] [address]- 0088 Jul, [facility] [place] [facility] [address] [id number] [place] [address]- 5742 Jun, [facility] [place] [facility] [address] [id number] [place] [address]- 0037 Jun, [facility] [place] [facility] [address] [id number], [place] [address]- 4385 Mar, [facility] [place] [facility] [address] [id number] [place] [address]- 6524 Mar, [facility] [place] [facility] [address] [id number] [place] [address]- 5892 Mar, [facility] [place] [facility] [address] [id number], [place] [address]- 6657 Mar, [facility] [address] [facility] [id number] [place] [address]- 5907 Mar, [facility] [address] [facility] [id number], [place] [address]- 4997 May, IMMUNIZATIONS No Known Immunizations SOCIAL HISTORY Never Assessed REASON FOR VISIT [facility] PLAN OF CARE Activity Details Follow Up 2 Weeks after last appointment Reason: VITAL SIGNS MEDICATIONS Unknown Medications RESULTS No Results PROCEDURES Procedure Date Ordered Result Body Site [facility] VISIT MENTAL HEALTH ESTAB PT Feb 12, 2017 Psychotherapy, patient &/family, 45 minutes, established patient Feb 12, 2017 INSTRUCTIONS MEDICATIONS ADMINISTERED No Known Medications [...]
--- OUTSIDE RECORDS SUMMARY | 2018-08-03 05:44 | XMS REPORT ---
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 Active [id number] Problem Acute pharyngitis 462 Active 864566517 Problem Personality disorder in adult F60.9 Active 88874502 Problem Paranoid personality disorder F60.0 Active 78888341 ALLERGIES No Information ENCOUNTERS Encounter Location Date Diagnosis [facility] [id number] [place] [address] 41113- 8012 Dec, [facility] [id number] [place] [address] 51836- 1023 Dec, [facility] [id number] [address] Nov, [facility] [id number] [place] [address] 92260- 4912 Nov, [facility] [id number] [place] [address] 06055- 2730 October, 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 ; Post-traumatic stress disorder, chronic F43.12 ; Paranoid personality disorder F60.0 ; High risk medication use Z79.899 and Personality disorder in adult F60.9 [facility] [id number] [place] [address] 03541- 9192 October, Major depressive disorder, recurrent episode, moderate F33.1 ; Paranoid personality disorder F60.0 and 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 [place] [id number] [place] [address] 91214- 7984 October, Major depressive disorder, recurrent episode, moderate F33.1 ; Paranoid personality disorder F60.0 and Illness anxiety disorder 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 [place] [id number] [place] [address] 30299- 3460 Sep, Major depressive disorder, recurrent episode, moderate F33.1 ; Paranoid personality disorder F60.0 and Illness anxiety disorder F45.21 [place] [address] [address]65- [address]88 Sep, Major depressive disorder, recurrent episode, moderate F33.1 and Illness anxiety disorder F45.21 [place] [id number] [place] [address] 97373- 7008 Aug, Major depressive disorder, recurrent episode, moderate F33.1 and Illness anxiety disorder F45.21 [place] [id number] [place] [address] 55465- 1373 Jul, Major depressive disorder, recurrent episode, moderate F33.1 and Illness anxiety disorder F45.21 [place] [id number] [place] [address] 24487- 4307 14 Jul, 2017 Major depressive disorder, recurrent episode, moderate F33.1 and Illness anxiety disorder F45.21 [place] [id number] [place] [address] 78851- 5259 Jun, Major depressive disorder, recurrent episode, moderate F33.1 and Illness anxiety disorder F45.21 [place] [id number] [place] [address] 02885- 3584 Jun, Major depressive disorder, recurrent episode, moderate F33.1 and Illness anxiety disorder F45.21 [place] [id number] [place] [address] 94488- 3709 May, Major depressive disorder, recurrent episode, moderate F33.1 and Illness anxiety disorder F45.21 [facility] [address] [address] May, Major depressive disorder, recurrent episode, moderate F33.1 and Illness anxiety disorder F45.21 [facility] [address] [address] 06[address] Apr, [facility] [id number] [place] [address] 24902- 2252 Apr, Major depressive disorder, recurrent episode, moderate F33.1 and Illness anxiety disorder F45.21 [facility] [id number] [place] [address] 84211- 2408 Mar, Major depressive disorder, recurrent episode, moderate F33.1 and Illness anxiety disorder F45.21 [facility] [id number] [place] [address] 09150- 7761 Mar, Major depressive disorder, recurrent episode, moderate F33.1 [facility] [id number] [place] [address] 57697- 6379 Feb, Major depressive disorder, recurrent episode, moderate F33.1 [facility] [id number] [place] [address] 43863- 6256 Jan, Major depressive disorder, recurrent episode, moderate F33.1 [facility] [address] [address] 0051 Jan, Major depressive disorder, recurrent episode, moderate F33.1 [facility] [address] [address] 5991 Dec, Major depressive disorder, recurrent episode, moderate F33.1 [facility] [address] [address] 8063 Dec, Major depressive disorder, recurrent episode, moderate F33.1 [facility] [address] [address] 9349 Jul, Major depressive disorder, recurrent episode, moderate F33.1 [facility] [address] [address]- 6382 Jul, Major depressive disorder, recurrent episode, moderate F33.1 [facility] [id number] [address]- 4066 Jun, Major depressive disorder, recurrent episode, moderate F33.1 [facility] [id number] 2861 May, Major depressive disorder, recurrent episode, moderate F33.1 [facility] [id number] [place] [address] 438438- 9853 Apr, Major depressive disorder, recurrent episode, moderate F33.1 [facility] [address] [address] 9191 Mar, [facility] [address] [address]- 5112 Feb, Major depressive disorder, recurrent episode, moderate F33.1 [facility] [address] [address]- 6868 Jan, Major depressive disorder, recurrent episode, moderate F33.1 [facility] [address] [address]- 6256 Dec, Major depressive disorder, recurrent episode, moderate F33.1 [facility] [address] [address] 6502 Nov, Major depressive disorder, recurrent episode, moderate F33.1 [facility] [address] 0636 Jul, Major depressive disorder, recurrent episode, moderate F33.1 [facility] [id number] [address]- 3722 Jan, Major depressive disorder, recurrent episode, moderate 296.32 [facility] [id number] [address]- 2546 Jan, Major depressive disorder, recurrent episode, moderate 296.32 [facility] [address] [address]- 1626 Dec, Major depressive disorder, recurrent episode, moderate 296.32 [facility] [address], [place] [address]- 2546 Dec, Major depressive disorder, recurrent episode, moderate 296.32 [facility] [address] [address]- 2546 Nov, Major depressive disorder, recurrent episode, moderate 296.32 [facility] [address] [address]- 0526 October, Major depressive disorder, recurrent episode, moderate 296.32 [facility] [address], [place] [address]- 5256 Sep, [facility] [address] [address]- 9556 Sep, [facility] [address], [place] [address]- 0216 Aug, [facility] [address], [place] [address]- 2546 Aug, [facility] [address], [place] [address]- 2546 Aug, [facility] [address], [place] [address]- 2546 Aug, [facility] [address], [place] [address]- 2546 Aug, [facility] [address] [address]- 2546 Jul, [facility] [id number] [address]- 2546 Jul, [facility] [place] [facility] [id number] [place] [address]- 8454 Jul, 2014 [facility] [place] [facility] [address] [id number] [place] [address]- 2865 Jul, [facility] [place] [facility] [address] [id number] [place] [address]- 2832 Jun, [facility] [place] [facility] [address] [id number] [place] [address]- 9859 Jun, [facility] [place] [facility] [address] [id number] [place] [address]- 3695 May, [facility] [place] [facility] [address] [id number] [place] [address]18 May, [facility] [place] [facility] [address] [id number] [place] [address]- 7734 Apr, [facility] [place] [facility] [address] [id number] [place] [address]- 8637 Apr, [facility] [place] [facility] [address] [id number] [place] [address]- 1270 Mar, [facility] [place] [facility] [address] [id number] [place] [address]- 3926 Mar, [facility] [place] [facility] [address] [facility] [id number] [place] [address]- 1856 Mar, [facility] [place] [facility] [address] [id number] [place] [address]- 9853 Mar, [facility] [place] [facility] [address] [id number] [place] [address]- 6768 Mar, [facility] [place] [facility] [address] [id number] [place] 0429 Mar, [facility] [place] [facility] [address] [id number] [place] [address]- 5772 Mar, [facility] [place] [facility] [address] [id number] [place] [address]- 8277 Mar, [facility] [place] [facility] [address] [id number] [place] [address]- 3329 Feb, [facility] [place] [facility] [address] [id number] [place] [address]- 8807 Feb, [facility] [place] [facility] [address] [id number] [place] [address]- 8013 Feb, [facility] [place] [facility] [address] [id number] [place] [address]- 2547 Feb, [facility] [place] [facility] [address] [id number] [place] [address]- 1870 Jan, [facility] [place] [facility] [address] [id number] [place] [address]- 2069 Jan, [facility] [place] [facility] [address] [id number] [place] [address]- 9547 Dec, [facility] [place] [facility] [address] [id number] [place] [address]- 1581 Dec, [facility] [place] [facility] [address] [id number] [place] [address]- 8673 Nov, [facility] [place] [facility] [address] [id number] [place] [address]- 9984 Nov, [facility] [place] [facility] [address] [id number] [place] [address]- 8601 October, [facility] [place] [facility] [address] [id number] [address]- 5608 October, [facility] [place] [facility] [address] [id number] [place] [address]- 0128 Sep, [facility] [place] [facility] [address] [id number] [place] [address]- 6678 Sep, [facility] [place] [facility] [address] [id number] [place] [address]- 5625 Aug, [facility] [place] [facility] [id number], [place] [address]- 8201 Aug, [facility] [address], [place] [address]- 6184 Jul, [facility] [address], [place] [address]- 3097 Jul, [facility] [address], [place] [address]- 5925 Jun, [facility] [address], [place] [address]- 7439 Jun, [facility] [id number] [place] [address] 90879- 7039 Mar, [facility] [id number] [place] [address] 03631- 0342 Mar, [facility] [id number] [place] [address] 46650- 6651 Mar, [facility] [address], [place] [address]- 1923 Mar, [facility] [address], [place] [address]- 8157 Mar, [facility] [address], [place] [address]- 0562 May, IMMUNIZATIONS No Known Immunizations SOCIAL HISTORY Never Assessed REASON FOR VISIT [facility] PLAN OF CARE Activity Details Follow Up 2 Weeks after last appointment Reason: VITAL SIGNS MEDICATIONS Unknown Medications RESULTS No Results PROCEDURES Procedure Date Ordered Result Body Site [facility] VISIT MENTAL HEALTH ESTAB PT May 11, 2017 Psychotherapy, patient &/family, 45 minutes, established patient May 11, 2017 INSTRUCTIONS MEDICATIONS ADMINISTERED No Known Medications [...]
--- OUTSIDE RECORDS SUMMARY | 2018-08-03 05:44 | XMS REPORT ---
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 Active [id number] Problem Acute pharyngitis 462 Active 592827092 Problem Personality disorder in adult F60.9 Active 87257451 Problem Paranoid personality disorder F60.0 Active [id number] ALLERGIES No Information ENCOUNTERS Encounter Location Date Diagnosis [facility] [place] [address], [place] [address] Jan, [facility] [place] [id number] [place] [address] Jan, [facility] [place] [address], [place] [address] Dec, [facility] [place] [address], [place] [address] Dec, [facility] [place] [address], [place] [address] Dec, [facility] [place] [id number] [place] [address]- [address]326 Dec, [facility] [place] [address], [place] [address] Nov, [facility] [place] [id number] [address] Nov, Major depressive disorder, recurrent episode, moderate F33.1 ; Paranoid personality disorder F60.0 and 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 [place] [address], [place] [address] Nov, [place] [id number] [place] [address]- 6247 Nov, [place] [id number] [place] [address]- 7058 Nov, Major depressive disorder, recurrent episode, moderate F33.1 ; Paranoid personality disorder F60.0 and 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 [place] [id number] [place] [address]- 8144 Nov, [place] [id number] [place] [address] 299[address]- 9551 Nov, [place] [id number] [place] [address]- [address] October, 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 ; Post-traumatic stress disorder, chronic F43.12 ; Paranoid personality disorder F60.0 ; High risk medication use Z79.899 and Personality disorder in adult F60.9 [place] [address], [place] [address] October, Major depressive disorder, recurrent episode, moderate F33.1 ; Paranoid personality disorder F60.0 and 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 [place] [address], [place] [address] October, Major depressive disorder, recurrent episode, moderate F33.1 ; Paranoid personality disorder F60.0 and Illness anxiety disorder 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 [facility] [place] [address], [place] [address] Sep, Major depressive disorder, recurrent episode, moderate F33.1 ; Paranoid personality disorder F60.0 and 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 [place] [address] [place] [address]- 6169 Sep, Major depressive disorder, recurrent episode, moderate F33.1 and 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 [place] [id number] [place] [address]- 1554 Aug, Major depressive disorder, recurrent episode, moderate F33.1 and 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 [place] [id number] [place] [address] 7[address]- 6258 Jul, Major depressive disorder, recurrent episode, moderate F33.1 and 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 [place] [id number] [place] [address] 10652- 3107 Jul, Major depressive disorder, recurrent episode, moderate F33.1 and Illness anxiety disorder 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 [place] [id number] [place] [address] 56[address]- 2530 Jun, Major depressive disorder, recurrent episode, moderate F33.1 and Illness anxiety disorder 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 [place] [id number] [place] [address] 6[address]- 8098 Jun, Major depressive disorder, recurrent episode, moderate F33.1 and Illness anxiety disorder F45.21 [place] [id number] [place] [address]12- 1130 May, Major depressive disorder, recurrent episode, moderate F33.1 and Illness anxiety disorder 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 [place] [address] [place] [address] 16329- 0444 05 May, 2017 Major depressive disorder, recurrent episode, moderate F33.1 and Illness anxiety disorder F45.21 [place] [id number] [place] [address] 54098- 3474 Apr, [place] [id number] [place] [address]44- 6335 08 Apr, 2017 Major depressive disorder, recurrent episode, moderate F33.1 and Illness anxiety disorder F45.21 [facility] [place] [address], [place] [address] Mar, Major depressive disorder, recurrent episode, moderate F33.1 and Illness anxiety disorder F45.21 [facility] [place] [address] [address] Mar, Major depressive disorder, recurrent episode, moderate F33.1 [facility] [place] [id number] [place] [address] 71876- 5796 Feb, Major depressive disorder, recurrent episode, moderate F33.1 [facility] [place] [address], [place] [address] Jan, Major depressive disorder, recurrent episode, moderate F33.1 [facility] [place] [address], [place] [address] Jan, Major depressive disorder, recurrent episode, moderate F33.1 [facility] [place] [address] [place] [address] 70934- 1173 Dec, Major depressive disorder, recurrent episode, moderate F33.1 [facility] [place] [address], [place] [address]15 Dec, Major depressive disorder, recurrent episode, moderate F33.1 [facility] [place] [address], [place] [address]- 3[address] Jul, Major depressive disorder, recurrent episode, moderate F33.1 [facility] [place] [address], [place] [address]- [address] Jul, Major depressive disorder, recurrent episode, moderate F33.1 [facility] [place] [address], [place] [address]- 3[address] Jun, Major depressive disorder, recurrent episode, moderate F33.1 [facility] [place] [address], [place] [address] May, Major depressive disorder, recurrent episode, moderate F33.1 [facility] [place] [address], [place] [address]- 2486 Apr, Major depressive disorder, recurrent episode, moderate F33.1 [facility] [place] [address], [place] [address] 3716 Mar, [facility] [place] [address], [place] [address]- 5486 Feb, Major depressive disorder, recurrent episode, moderate F33.1 [facility] [place] [address], [place] [address]- 6186 Jan, Major depressive disorder, recurrent episode, moderate F33.1 [facility] [place] [address], [place] [address]- 4336 Dec, Major depressive disorder, recurrent episode, moderate F33.1 [facility] [place] [address], [place] [address]- 2606 Nov, Major depressive disorder, recurrent episode, moderate F33.1 [facility] [place] [address], [place] [address]- 8643 Jul, Major depressive disorder, recurrent episode, moderate F33.1 [facility] [place] [address], [place] [address]- 6886 Jan, Major depressive disorder, recurrent episode, moderate 296.32 [facility] [place] [address], [place] [address]- 5766 Jan, Major depressive disorder, recurrent episode, moderate 296.32 [facility] [place] [id number] Dec, Major depressive disorder, recurrent episode, moderate 296.32 [facility] [place] [address] Dec, Major depressive disorder, recurrent episode, moderate 296.32 [facility] [place] [id number] [address] Nov, Major depressive disorder, recurrent episode, moderate 296.32 [facility] [place] [address] [facility] [id number] [address] October, Major depressive disorder, recurrent episode, moderate 296.32 [facility] [address] [facility] [id number] [place] [address]- 5693 14 Sep, 2014 [facility] [place] [id number] [place] [address]- 7016 Sep, [facility] [place] [address] [facility] [id number] [place] [address]- 6374 30 Aug, 2014 [facility] [place] [address] [place] [address]- 5304 Aug, [facility] [place] [address] [place] [address]- 7837 Aug, [facility] [place] [address], [place] [address]- 3839 Aug, [facility] [place] [address], [place] [address]- 6756 Aug, [facility] [place] [address] [place] [address]- 7004 Jul, [facility] [place] [address], [place] [address]- 5766 Jul, [facility] [place] [address] [place] [address]- 3066 Jul, [facility] [place] [id number], [place] [address]- 2546 Jul, [facility] [id number], [place] [address]- 5536 Jun, [facility] [id number], [place] [address]- 8506 Jun, [facility] [place] [id number], [place] [address] 2546 May, [facility] [place] [facility] [address] [id number] [place] [address]- 3639 May, [facility] [place] [facility] [address] [id number] [place] [address] Apr, [facility] [place] [facility] [address] [id number] [place] [address]- 6078 Apr, [facility] [place] [facility] [address] [id number] [place] [address]- 5515 Mar, [facility] [place] [facility] [address] [id number] [place] [address]- 2628 Mar, [facility] [place] [facility] [address] [id number] [place] [address]- 4537 Mar, [facility] [place] [facility] [address] [id number] [place] [address]- 5822 Mar, [facility] [place] [facility] [address] [id number] [place] [address]- 8228 Mar, [facility] [place] [facility] [address] [id number] [place] [address]- 7103 Mar, [facility] [place] [facility] [address] [id number] [place] [address]- 7253 Mar, [facility] [place] [facility] [address] [id number] [place] [address]- 8219 Mar, [facility] [place] [facility] [address] [id number], [place] [address]- 5913 Feb, [facility] [place] [facility] [address] [id number] [place] [address]- 7138 Feb, [facility] [place] [facility] [address] [id number] [place] [address]- 6136 Feb, [facility] [place] [facility] [address] [id number] [place] [address]- 3719 Feb, [facility] [place] [facility] [address] [id number] [place] [address]- 7948 Jan, [facility] [place] [facility] [address] [id number] [place] [address]- 5282 Jan, [facility] [place] [facility] [address] [id number] [place] 1620 Dec, [facility] [place] [facility] [address] [id number] [place] [address]- 3546 Dec, [facility] [place] [facility] [address] [id number] [place] [address]- 7877 Nov, [facility] [place] [facility] [address] [id number] [place] [address]- 7105 Nov, [facility] [place] [facility] [address] [id number] [place] [address]- 3251 October, [facility] [place] [facility] [address] [id number] [place] [address]- 8480 October, [facility] [place] [facility] [address] [id number] [place] [address]- 5534 Sep, [facility] [place] [facility] [address] [id number] [place] [address]- 4859 Sep, [facility] [place] [facility] [address] [id number] [place] [address]- 7171 Aug, [facility] [place] [facility] [address] [id number] [place] [address]- 8002 Aug, [facility] [place] [facility] [address] [id number] [place] [address]- 8262 Jul, [facility] [place] [facility] [address] [id number] [place] [address]- 1627 Jul, [facility] [place] [facility] [address] [id number] [place] [address]4 Jun, [facility] [place] [facility] [address] [id number] [place] [address]- 3579 Jun, [facility] [place] [facility] [address] [facility] [id number] [place] [address]- 5997 Mar, [facility] [place] [address] [facility] [id number], [place] [address]- 2830 Mar, [facility] [place] [address] [facility] [id number], [place] [address]- 3981 Mar, [facility] [place] [address] [facility] [id number], [place] [address]- 3994 Mar, [facility] [place] [address] [facility] [id number]- 1871 Mar, [facility] [place] [address] [facility] [id number]- [address]284 May, IMMUNIZATIONS No Known Immunizations SOCIAL HISTORY Never Assessed REASON FOR VISIT [facility] PLAN OF CARE Activity Details Follow Up 2 Weeks after last appointment Reason: VITAL SIGNS MEDICATIONS Unknown Medications RESULTS No Results PROCEDURES Procedure Date Ordered Result Body Site [facility] VISIT MENTAL HEALTH NEW PT Jul 21, 2017 Psychotherapy, patient &/family, 45 minutes, new patient Jul 21, 2017 INSTRUCTIONS MEDICATIONS ADMINISTERED No Known Medications [...]
--- OUTSIDE RECORDS SUMMARY | 2018-08-03 05:44 | XMS REPORT ---
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 Active [id number] Problem Acute pharyngitis 462 Active 629427072 Problem Personality disorder in adult F60.9 Active 06471372 Problem Paranoid personality disorder F60.0 Active [id number] ALLERGIES No Information ENCOUNTERS Encounter Location Date Diagnosis [facility] [place] [id number] [address] Dec, [facility] [place] [id number] [place] [address]- [address] Dec, [facility] [place] [id number] [address] Nov, [facility] [place] [id number] [address] Nov, [facility] [place] [id number] [address] Nov, [facility] [place] [id number] [place] [address]- 14[address] Nov, [facility] [place] [id number] [address] Nov, [facility] [place] [id number] [place] [address] October, 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 ; Post-traumatic stress disorder, chronic F43.12 ; Paranoid personality disorder F60.0 ; High risk medication use Z79.899 and Personality disorder in adult F60.9 [place] [id number] [address] October, Major depressive disorder, recurrent episode, moderate F33.1 ; Paranoid personality disorder F60.0 and Illness anxiety disorder F45.21 [place] [id number] [place] [address]- [address] October, Major depressive disorder, recurrent episode, moderate F33.1 ; Paranoid personality disorder F60.0 and Illness anxiety disorder F45.21 [place] [id number] [place] [address]50- 9281 Sep, Major depressive disorder, recurrent episode, moderate F33.1 ; Paranoid personality disorder F60.0 and Illness anxiety disorder F45.21 [place] [id number] [place] [address]- [address]30 Sep, Major depressive disorder, recurrent episode, moderate F33.1 and Illness anxiety disorder F45.21 [place] [id number] [place] [address]99- [address]286 Aug, Major depressive disorder, recurrent episode, moderate F33.1 and Illness anxiety disorder F45.21 [place] [id number] [place] [address]138- 2284 Jul, Major depressive disorder, recurrent episode, moderate F33.1 and Illness anxiety disorder F45.21 [place] [id number] [place] [address] 11786- 0273 14 Jul, 2017 Major depressive disorder, recurrent episode, moderate F33.1 and Illness anxiety disorder F45.21 [place] [address] [address] Jun, Major depressive disorder, recurrent episode, moderate F33.1 and Illness anxiety disorder F45.21 [facility] [place] [address] [address] Jun, Major depressive disorder, recurrent episode, moderate F33.1 and Illness anxiety disorder F45.21 [facility] [place] [id number] [address] May, Major depressive disorder, recurrent episode, moderate F33.1 and Illness anxiety disorder F45.21 [facility] [place] [id number] [place] [address] 09827- 80[address] May, Major depressive disorder, recurrent episode, moderate F33.1 and Illness anxiety disorder F45.21 [place] [id number] [place] [address] 38136- 0804 Apr, [place] [id number] [place] [address] 78602- 9304 Apr, Major depressive disorder, recurrent episode, moderate F33.1 and Illness anxiety disorder F45.21 [place] [id number] [place] [address] 46960- 5348 Mar, Major depressive disorder, recurrent episode, moderate F33.1 and Illness anxiety disorder F45.21 [facility] [place] [address] [address] Mar, Major depressive disorder, recurrent episode, moderate F33.1 [place] [id number] [address] Feb, Major depressive disorder, recurrent episode, moderate F33.1 [facility] [place] [id number] [address] Jan, Major depressive disorder, recurrent episode, moderate F33.1 [facility] [place] [id number] [address] Jan, Major depressive disorder, recurrent episode, moderate F33.1 [place] [id number] [place] [address] 82146- 3358 Dec, Major depressive disorder, recurrent episode, moderate F33.1 [facility] [place] [address] [facility] [id number] [address] Dec, Major depressive disorder, recurrent episode, moderate F33.1 [facility] [place] [address] [facility] [id number] [address] Jul, Major depressive disorder, recurrent episode, moderate F33.1 [facility] [place] [id number] [address] Jul, Major depressive disorder, recurrent episode, moderate F33.1 [facility] [place] [id number] [place] [address] 697028- 0792 Jun, Major depressive disorder, recurrent episode, moderate F33.1 [facility] [place] [id number] [address] May, Major depressive disorder, recurrent episode, moderate F33.1 [facility] [place] [id number] [address]- [address] Apr, Major depressive disorder, recurrent episode, moderate F33.1 [facility] [place] [id number] [address] Mar, [facility] [place] [id number] [address]- 7256 Feb, Major depressive disorder, recurrent episode, moderate F33.1 [facility] [place] [id number] [address] Jan, Major depressive disorder, recurrent episode, moderate F33.1 [facility] [place] [id number] [address] Dec, Major depressive disorder, recurrent episode, moderate F33.1 [facility] [place] [id number] [address] Nov, Major depressive disorder, recurrent episode, moderate F33.1 [facility] [place] [address] [address]- [address] Jul, Major depressive disorder, recurrent episode, moderate F33.1 [facility] [place] [address] [address]- [address] Jan, Major depressive disorder, recurrent episode, moderate 296.32 [facility] [place] [address] [address]- 8426 Jan, Major depressive disorder, recurrent episode, moderate 296.32 [facility] [place] [address] [address]- 4617 Dec, Major depressive disorder, recurrent episode, moderate 296.32 [facility] [place] [address] [address]- 4830 Dec, Major depressive disorder, recurrent episode, moderate 296.32 [facility] [place] [address] [address]- 1824 Nov, Major depressive disorder, recurrent episode, moderate 296.32 [facility] [place] [address] [address]- 7254 October, Major depressive disorder, recurrent episode, moderate 296.32 [facility] [place] [address] [address]- 1556 Sep, [facility] [place] [address] [address]- 7106 Sep, [facility] [place] [address] [address]- [address]26 30 Aug, 2014 [facility] [place] [address] [address]- 7776 Aug, [facility] [place] [address] [address]- 2756 Aug, [facility] [place] [id number] [address]- 2546 Aug, [facility] [place] [id number] [place] [address]- [address]80 Aug, [facility] [place] [facility] [address] [id number] [place] [address]- 9211 Jul, 2014 [facility] [place] [facility] [address] [id number] [place] [address]- 4836 Jul, 2014 [facility] [place] [facility] [address] [id number] [place] [address]- 0126 Jul, [facility] [place] [facility] [address] [id number] [place] [address]- 3285 Jul, [facility] [place] [facility] [address] [id number] [place] [address]- 3251 Jun, [facility] [place] [facility] [address] [facility] [id number] [place] [address]- 8494 Jun, [facility] [place] [facility] [address] [facility] [id number] [place] [address] May, [facility] [place] [facility] [address] [id number] [place] [address] May, [facility] [place] [facility] [address] [facility] [id number] [place] [address]- 7404 Apr, [facility] [place] [facility] [address] [facility] [id number] [place] [address] Apr, [facility] [place] [facility] [address] [facility] [id number] [place] [address]- 0187 Mar, [facility] [place] [facility] [address] [id number] [place] [address]- 8057 Mar, [facility] [place] [facility] [address] [facility] [id number] [place] [address]- 6380 Mar, [facility] [place] [facility] [address] [facility] [id number] [place] [address]- 1096 Mar, [facility] [place] [facility] [address] [facility] [id number] [place] [address]- 6363 Mar, [facility] [place] [facility] [address] [id number] [place] [address]- 0267 Mar, [facility] [place] [facility] [address] [id number] [place] [address]- 1244 Mar, [facility] [place] [facility] [address] [id number] [place] [address] Mar, [facility] [place] [facility] [address] [id number] [place] [address]- 6103 Feb, [facility] [place] [facility] [address] [id number] [place] [address]- 1830 Feb, [facility] [place] [facility] [address] [id number] [place] [address]- 6314 Feb, [facility] [place] [facility] [address] [id number] [place] [address]- 5067 Feb, [facility] [place] [facility] [address] [id number] [place] [address]- 1721 Jan, [facility] [place] [facility] [address] [id number] [place] [address]- 3247 Jan, [facility] [place] [facility] [address] [id number] [place] [address]- 3301 Dec, [facility] [place] [facility] [address] [id number] [place] [address]- 7861 Dec, [facility] [place] [facility] [address] [id number] [address]- 3734 Nov, [facility] [place] [facility] [address] [id number] [place] [address]- 2257 Nov, [facility] [place] [facility] [address] [id number] [place] [address]- 4332 October, [facility] [place] [facility] [address] [id number] [place] [address]40 October, [facility] [place] [facility] [id number] [address]- 1917 Sep, [facility] [place] [id number]- [address] Sep, [facility] [place] [id number] Aug, [facility] [place] [id number] [address]- 0171 Aug, [facility] [place] [id number] Jul, [facility] [place] [id number] [place] [address] 28958- 6639 Jul, [facility] [place] [address] [address]- 3188 Jun, [facility] [place] [id number]- [address] Jun, [facility] [place] [id number] [address]- 5540 Mar, [facility] [place] [address] [address] Mar, [facility] [place] [address] [address]- 1571 Mar, [facility] [place] [address] [address]- 9511 Mar, [facility] [place] [id number] [address]- 6735 Mar, [facility] [place] [id number] 2015 May, IMMUNIZATIONS No Known Immunizations SOCIAL HISTORY Never Assessed REASON FOR VISIT VINNY PLAN OF CARE Activity Details Follow Up 2 Weeks after last appointment Reason: VITAL SIGNS MEDICATIONS Unknown Medications RESULTS No Results PROCEDURES Procedure Date Ordered Result Body Site [facility] VISIT MENTAL HEALTH ESTAB PT May 26, 2017 Psychotherapy, patient &/family, 45 minutes, established patient May 26, 2017 INSTRUCTIONS MEDICATIONS ADMINISTERED No Known [...]
[2018-08-03] MEDS ORDERED: ONDANSETRON 4 MG/2 ML (SDV) Z0FRAN IVP ONE (05:45)
--- OUTSIDE RECORDS SUMMARY | 2018-08-03 05:45 | XMS REPORT ---
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 Active [id number] Problem Acute pharyngitis 462 Active 425296202 Problem Personality disorder in adult F60.9 Active 49177286 Problem Paranoid personality disorder F60.0 Active [id number] ALLERGIES No Information ENCOUNTERS Encounter Location Date Diagnosis [facility] [address] [address] Dec, [facility] [id number] [place] [address]71- 4456 Dec, [facility] [address] [address] Nov, [facility] [id number] [place] [address] 86735- 5085 Nov, [facility] [id number] [place] [address] 18753- 5170 Nov, [facility] [id number] [place] [address] 54147- 1202 Nov, Major depressive disorder, recurrent episode, moderate F33.1 ; Paranoid personality disorder F60.0 and 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 [facility] [id number] [place] [id number]- [address] Nov, [place] [address] [address] Nov, [place] [id number] [place] [address] 74809- 5777 October, 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 ; Post-traumatic stress disorder, chronic F43.12 ; Paranoid personality disorder F60.0 ; High risk medication use Z79.899 and Personality disorder in adult F60.9 [place] [id number] [address] October, Major depressive disorder, recurrent episode, moderate F33.1 ; Paranoid personality disorder F60.0 and 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 [place] [id number] [address] October, Major depressive disorder, recurrent episode, moderate F33.1 ; Paranoid personality disorder F60.0 and 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 [place] [id number] [address] Sep, Major depressive disorder, recurrent episode, moderate F33.1 ; Paranoid personality disorder F60.0 and 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 [place] [address] [address] Sep, Major depressive disorder, recurrent episode, moderate F33.1 and 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 [place] [address] [address] Aug, Major depressive disorder, recurrent episode, moderate F33.1 and 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 [place] [id number] [place] [address] 73481- 5660 28 Jul, 2017 Major depressive disorder, recurrent episode, moderate F33.1 and 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 [place] [id number] [address] 14 Jul, 2017 Major depressive disorder, recurrent episode, moderate F33.1 and 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 [place] [id number] [place] [address] 52793- 3713 Jun, Major depressive disorder, recurrent episode, moderate F33.1 and 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 [place] [id number] [place] [address] 21796- 1661 Jun, Major depressive disorder, recurrent episode, moderate F33.1 and 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 [place] [id number] [place] [address] 98712- 9688 May, Major depressive disorder, recurrent episode, moderate F33.1 and 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 [place] [id number] [place] [address] 46801- 9441 May, Major depressive disorder, recurrent episode, moderate F33.1 and 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 [place] [id number] [place] [address] 62658- 8775 Apr, [place] [id number] [place] [address] 25382- 4539 Apr, Major depressive disorder, recurrent episode, moderate F33.1 and 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 [place] [id number] [place] [address] 83030- 0993 Mar, Major depressive disorder, recurrent episode, moderate F33.1 and Illness anxiety disorder 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 [place] [id number] [place] [address] 05535- 3274 Mar, Major depressive disorder, recurrent episode, moderate F33.1 [place] [id number] [place] [address] 98304- 8869 Feb, Major depressive disorder, recurrent episode, moderate F33.1 [place] [id number] [place] [address] 40265- 8950 Jan, Major depressive disorder, recurrent episode, moderate F33.1 [place] [address] [facility] [id number] [address] Jan, Major depressive disorder, recurrent episode, moderate F33.1 [facility] [address] [facility] [id number] [place] [address] Dec, Major depressive disorder, recurrent episode, moderate F33.1 [facility] [id number] Dec, Major depressive disorder, recurrent episode, moderate F33.1 [facility] [address] [facility] [id number] [place] [address]- 6176 Jul, Major depressive disorder, recurrent episode, moderate F33.1 [facility] [id number] [address] Jul, Major depressive disorder, recurrent episode, moderate F33.1 [facility] [address] [address]- 8656 Jun, Major depressive disorder, recurrent episode, moderate F33.1 [facility] [id number] [address]- 2896 May, Major depressive disorder, recurrent episode, moderate F33.1 [facility] [id number] [address]- 2114 Apr, Major depressive disorder, recurrent episode, moderate F33.1 [facility] [address] [address]- 9916 Mar, [facility] [address] [facility] [id number] [address]- 7186 Feb, Major depressive disorder, recurrent episode, moderate F33.1 [facility] [id number] [address] Jan, Major depressive disorder, recurrent episode, moderate F33.1 [facility] [id number] [address]556 Dec, Major depressive disorder, recurrent episode, moderate F33.1 [facility] [address] [address]- 8946 Nov, Major depressive disorder, recurrent episode, moderate F33.1 [facility] [address] [address]- 2546 Jul, Major depressive disorder, recurrent episode, moderate F33.1 [facility] [address] [address]- 9856 Jan, Major depressive disorder, recurrent episode, moderate 296.32 [facility] [address] [address]- 4506 Jan, Major depressive disorder, recurrent episode, moderate 296.32 [facility] [address] [address]- 0646 Dec, Major depressive disorder, recurrent episode, moderate 296.32 [facility] [address] [address] Dec, Major depressive disorder, recurrent episode, moderate 296.32 [facility] [address] [address] 7073 Nov, Major depressive disorder, recurrent episode, moderate 296.32 [facility] [address] [address]- 8746 October, Major depressive disorder, recurrent episode, moderate 296.32 [facility] [address] [address]- 7216 Sep, [facility] [address] [address]- 9686 Sep, [facility] [address] [address]- 2216 30 Aug, 2014 [facility] [address] [address]- 2436 16 Aug, 2014 [facility] [id number] [place] [address]- 0109 16 Aug, 2014 [facility] [place] [facility] [address] [id number] [place] [address]- 3665 Aug, 2014 [facility] [place] [facility] [address] [id number] [place] [address]- 2661 Aug, [facility] [place] [facility] [address] [id number] [place] [address]- 8292 Jul, 2014 [facility] [place] [facility] [address] [id number] [place] [address]- 0668 Jul, 2014 [facility] [place] [facility] [address] [facility] [id number] [place] [address]- 3585 Jul, 2014 [facility] [place] [facility] [address] [facility] [id number] [place] [address]- 0129 Jul, [facility] [place] [facility] [address] [facility] [id number] [place] [address]- 8365 Jun, [facility] [place] [facility] [address] [facility] [id number] [place] [address]- 1291 Jun, [facility] [place] [facility] [id number] [place] [address]- 3099 May, [facility] [place] [facility] [address] [facility] [id number] [place] [address]- 9239 May, [facility] [place] [facility] [address] [facility] [id number] [place] [address]- 5440 Apr, [facility] [place] [facility] [address] [facility] [id number] [place] [address]- 2476 Apr, [facility] [place] [facility] [address] [facility] [id number] [place] [address]- 5066 Mar, [facility] [place] [facility] [address] [facility] [id number] [place] [address]- 0006 Mar, [facility] [place] [facility] [address] [facility] [id number] [place] [address]- 8198 Mar, [facility] [place] [facility] [address] [id number] [place] [address]- 7997 Mar, [facility] [place] [facility] [address] [id number] [place] [address]- 9733 Mar, [facility] [place] [facility] [address] [id number] [place] 399[address] Mar, [facility] [place] [facility] [address] [id number] [place] [address]- 5930 Mar, [facility] [place] [facility] [address] [id number] [place] [address]- 6121 Mar, [facility] [place] [facility] [address] [id number] [place] [address]- 3015 Feb, [facility] [place] [facility] [address] [id number] [place] [address]- 2703 Feb, [facility] [place] [facility] [address] [id number] [place] [address]- 1188 Feb, [facility] [place] [facility] [address] [id number] [place] [address]- 4204 Feb, [facility] [place] [facility] [address] [id number] [place] [address]- 1000 Jan, [facility] [place] [facility] [address] [id number] [place] [address]- 9853 Jan, [facility] [place] [facility] [address] [id number] [place] [address]- 4990 Dec, [facility] [place] [facility] [address] [id number] [place] [address]- 8531 Dec, [facility] [place] [facility] [address] [id number] [place] [address]- 2511 Nov, [facility] [place] [facility] [address] [id number] [place] [address] Nov, [facility] [place] [facility] [address] [id number] [place] [address]- 8896 October, [facility] [address] [facility] [id number] [place] [address]- 9186 October, [facility] [address] [facility] [id number] [place] [address]- 0511 Sep, [facility] [address] [facility] [id number] [place] [address]- 6876 Sep, [facility] [address] [facility] [id number] [place] [address]- 8425 Aug, [facility] [address] [facility] [id number] [place] [address]- 4980 Aug, [facility] [address] [facility] [id number] [place] [address]- 4003 Jul, [facility] [address] [place] [address]- 8477 Jul, [facility] [id number] [address]- 6054 Jun, [facility] [address] [place] [address]- 9191 Jun, [facility] [id number] [address]- 3695 Mar, [facility] [id number] [address]- 0046 Mar, [facility] [address] [facility] [id number] [place] [address]- 1816 Mar, [facility] [address] [facility] [id number] [place] [address]- 3891 Mar, [facility] [address] [facility] [id number] [place] [address]- 4156 Mar, [facility] [id number] [address]- 3446 May, IMMUNIZATIONS No Known Immunizations SOCIAL HISTORY Never Assessed REASON FOR VISIT BH f/u PLAN OF CARE Activity Details Follow Up 2 Weeks after last appointment Reason: VITAL SIGNS MEDICATIONS Unknown Medications RESULTS No Results PROCEDURES Procedure Date Ordered Result Body Site [facility] ESTAB PT Jun 10, 2017 Psychotherapy, patient &/family, 45 minutes, established patient Jun 10, 2017 INSTRUCTIONS MEDICATIONS ADMINISTERED No Known Medications [...]
--- OUTSIDE RECORDS SUMMARY | 2018-08-03 05:45 | XMS REPORT ---
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 Active [id number] Problem Acute pharyngitis 462 Active 434674685 Problem Major depressive disorder, recurrent episode, moderate F33.1 Active 393478132 ALLERGIES No Information ENCOUNTERS Encounter Location Date Diagnosis [place] [id number] [place] [address] 58048- 1555 October, [place] [id number] [place] [address] 45868- 8906 October, [place] [id number] [place] [address] 76244- 7407 Sep, [place] [id number] [place] [address] 43575- 7287 Sep, Major depressive disorder, recurrent episode, moderate F33.1 and Illness anxiety disorder 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 [place] [id number] [place] [address] 99386- 1461 Aug, Major depressive disorder, recurrent episode, moderate F33.1 and Illness anxiety disorder F45.21 [place] [id number] [place] [address] 36132- 8436 28 Jul, 2017 Major depressive disorder, recurrent episode, moderate F33.1 and Illness anxiety disorder F45.21 [place] [id number] [place] [address] 22736- 0753 14 Jul, 2017 Major depressive disorder, recurrent episode, moderate F33.1 and Illness anxiety disorder F45.21 [facility] [id number] [place] [address] 13881- 4802 Jun, Major depressive disorder, recurrent episode, moderate F33.1 and Illness anxiety disorder F45.21 [facility] [id number] [place] [address] 05577- 5206 Jun, Major depressive disorder, recurrent episode, moderate F33.1 and Illness anxiety disorder F45.21 [facility] [id number] [place] [address] 09676- 0800 May, Major depressive disorder, recurrent episode, moderate F33.1 and Illness anxiety disorder F45.21 [place] [id number] [place] [address] 51265- 2120 May, Major depressive disorder, recurrent episode, moderate F33.1 and Illness anxiety disorder F45.21 [place] [id number] [place] [address] 59277- 3602 Apr, [place] [id number] [place] [address] 42508- 0254 Apr, Major depressive disorder, recurrent episode, moderate F33.1 and Illness anxiety disorder F45.21 [place] [id number] [place] [address] 71410- 5960 Mar, Major depressive disorder, recurrent episode, moderate F33.1 and Illness anxiety disorder F45.21 [place] [id number] [place] [address] 86068- 1008 Mar, Major depressive disorder, recurrent episode, moderate F33.1 [place] [id number] [place] [address] 64908- 3336 Feb, Major depressive disorder, recurrent episode, moderate F33.1 [facility] [id number] [place] [address] 94987- 2845 Jan, Major depressive disorder, recurrent episode, moderate F33.1 [place] [id number] [address]- 8686 Jan, Major depressive disorder, recurrent episode, moderate F33.1 [facility] [address] 2366 Dec, Major depressive disorder, recurrent episode, moderate F33.1 [facility] [address] [address]- 4526 Dec, Major depressive disorder, recurrent episode, moderate F33.1 [facility] [address] 6956 Jul, Major depressive disorder, recurrent episode, moderate F33.1 [facility] [address] 9166 Jul, Major depressive disorder, recurrent episode, moderate F33.1 [facility] [address] [address]- 0514 Jun, Major depressive disorder, recurrent episode, moderate F33.1 [facility] [address] [address]- 1579 May, Major depressive disorder, recurrent episode, moderate F33.1 [facility] [address] 5217 Apr, Major depressive disorder, recurrent episode, moderate F33.1 [facility] [address] [address]- 5496 Mar, [facility] [address] 3872 Feb, Major depressive disorder, recurrent episode, moderate F33.1 [facility] [address] [address]- 8026 Jan, Major depressive disorder, recurrent episode, moderate F33.1 [facility] [address] 3156 Dec, Major depressive disorder, recurrent episode, moderate F33.1 [facility] [address] [address]- 6990 Nov, Major depressive disorder, recurrent episode, moderate F33.1 [facility] [address] [address]- 4486 Jul, Major depressive disorder, recurrent episode, moderate F33.1 [facility] [address], [place] [address]- 1367 Jan, Major depressive disorder, recurrent episode, moderate 296.32 [facility] [address] 5971 Jan, Major depressive disorder, recurrent episode, moderate 296.32 [facility] [address] 0716 Dec, Major depressive disorder, recurrent episode, moderate 296.32 [facility] [id number] [address]- 2700 Dec, Major depressive disorder, recurrent episode, moderate 296.32 [facility] [address] 0973 Nov, Major depressive disorder, recurrent episode, moderate 296.32 [facility] [address] 2376 October, Major depressive disorder, recurrent episode, moderate 296.32 [facility] [address], [place] [address]- 0996 Sep, [facility] [address], [place] [address]- 8338 Sep, [facility] [address], [place] [address]- 0966 30 Aug, 2014 [facility] [address], [place] [address]- 6536 16 Aug, 2014 [facility] [address], [place] [address]- 4856 Aug, [facility] [place] [facility] [address] [id number] [place] [address]- 6769 Aug, [facility] [place] [facility] [address] [id number] [place] [address]- 8221 Aug, [facility] [place] [facility] [address] [facility] [id number] [place] [address]- 9881 Jul, [facility] [place] [facility] [address] [id number] [place] [address]- 4835 Jul, [facility] [place] [facility] [address] [id number] [place] [address]- 5663 Jul, [facility] [place] [facility] [address] [facility] [id number] [place] [address]- 8603 Jul, [facility] [place] [facility] [address] [facility] [id number] [place] [address]- 4249 Jun, [facility] [place] [facility] [address] [facility] [id number] [place] [address]- 0579 Jun, [facility] [place] [facility] [address] [facility] [id number] [place] [address]- 8386 May, [facility] [place] [facility] [address] [facility] [id number] [place] [address]- 0833 May, [facility] [place] [facility] [address] [facility] [id number] [address]- 4006 Apr, [facility] [place] [facility] [address] [facility] [id number], [place] [address]- 8878 Apr, [facility] [place] [facility] [address] [facility] [id number] [place] [address]- 9068 Mar, [facility] [place] [facility] [address] [facility] [id number] [place] [address]- 1175 Mar, [facility] [place] [facility] [address] [facility] [id number] [place] [address]- 1174 Mar, [facility] [place] [facility] [address] [id number] [place] [address]- 8495 17 Mar, 2014 [facility] [place] [facility] [address] [id number] [place] [address]- 5688 Mar, [facility] [place] [facility] [address] [id number] [place] [address]- 7296 Mar, [facility] [place] [facility] [address] [id number] [place] [address]- 7530 Mar, [facility] [place] [facility] [address] [id number] [place] [address]- 0472 Mar, [facility] [place] [facility] [address] [id number] [place] [address]- 9771 Feb, [facility] [place] [facility] [address] [id number] [place] [address]- 8127 Feb, [facility] [place] [facility] [address] [id number] [place] [address]- 3355 Feb, [facility] [place] [facility] [address] [id number] [place] [address]- 9582 Feb, [facility] [place] [facility] [address] [id number] [place] [address]- 9560 Jan, [facility] [place] [facility] [address] [id number] [place] 8318 Jan, [facility] [place] [facility] [address] [id number] [place] [address]- 1166 Dec, [facility] [place] [facility] [address] [id number] [place] [address]- 0583 Dec, [facility] [place] [facility] [address] [id number] [place] [address]- 6642 Nov, [facility] [place] [facility] [address] [id number] [place] [address]- 6219 Nov, [facility] [place] [facility] [address] [id number] [place] [address]- 2732 October, [facility] [place] [facility] [address] [facility] [id number] [place] [address]- 8725 October, [facility] [place] [facility] [address] [id number] [place] [address]- 6660 Sep, [facility] [place] [facility] [address] [facility] [id number] [place] 7520 Sep, [facility] [place] [facility] [address] [facility] [id number] [place] [address]- 6632 Aug, [facility] [address] [facility] [id number] [place] [address]- 6638 Aug, [facility] [address] [facility] [id number] [place] [address]- 2201 Jul, [facility] [place] [facility] [address] [facility] [id number] [place] [address]- 0830 Jul, [facility] [place] [facility] [address] [facility] [id number], [place] [address]- 3246 Jun, [facility] [place] [facility] [address] [facility] [id number], [place] [address]- 0239 Jun, [facility] [place] [facility] [address] [facility] [id number], [place] [address]- 4435 Mar, [facility] [place] [facility] [address] [facility] [id number], [place]- 0642 Mar, [facility] [place] [facility] [address] [facility] [id number], [place] [address]- 8993 Mar, [facility] [place] [facility] [address] [facility] [id number], [place]29[place]- 1758 Mar, [facility] [place] [facility] [address] [facility] [id number][place] 2540 Mar, [facility] [address] [facility] [id number][place]- 8768 May, IMMUNIZATIONS No Known Immunizations SOCIAL HISTORY Never Assessed REASON FOR VISIT f/u PLAN OF CARE Activity Details Follow Up 2 Weeks after last appointment Reason: VITAL SIGNS MEDICATIONS Unknown Medications RESULTS No Results PROCEDURES Procedure Date Ordered Result Body Site [facility] VISIT MENTAL HEALTH ESTAB PT Jan 29, 2017 Psychotherapy, patient &/family, 30 minutes, established patient Jan 29, 2017 INSTRUCTIONS MEDICATIONS ADMINISTERED No Known Medications
--- OUTSIDE RECORDS SUMMARY | 2018-08-03 05:45 | XMS REPORT ---
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 [id number] Problem Acute pharyngitis 462 Active 615385667 Problem Major depressive disorder, recurrent episode, moderate F33.1 Active 356281558 ALLERGIES No Information ENCOUNTERS Encounter Location Date Diagnosis [place] [id number] [place] [address] 80555- 5496 Sep, [place] [id number] [place] [address] 97454- 7505 Sep, [place] [id number] [place] [address] 80887- 1992 Aug, Major depressive disorder, recurrent episode, moderate F33.1 and Illness anxiety disorder 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 [place] [id number] [place] [address] 49931- 7148 28 Jul, 2017 Major depressive disorder, recurrent episode, moderate F33.1 and Illness anxiety disorder 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 [place] [id number] [place] [address] 83527- 3207 14 Jul, 2017 Major depressive disorder, recurrent episode, moderate F33.1 and Illness anxiety disorder F45.21 [place] [id number] [place] [address] 07329- 4502 Jun, Major depressive disorder, recurrent episode, moderate F33.1 and Illness anxiety disorder F45.21 [place] [id number] [place] [address] 91066- 7534 Jun, Major depressive disorder, recurrent episode, moderate F33.1 and Illness anxiety disorder F45.21 [facility] [id number] [place] [address] 09118- 8763 May, Major depressive disorder, recurrent episode, moderate F33.1 and Illness anxiety disorder F45.21 [facility] [id number] [place] [address] 84436- 0032 May, Major depressive disorder, recurrent episode, moderate F33.1 and Illness anxiety disorder F45.21 [place] [id number] [place] [address] 90930- 1634 Apr, [place] [id number] [place] [address] 21872- 7083 Apr, Major depressive disorder, recurrent episode, moderate F33.1 and Illness anxiety disorder F45.21 [place] [id number] [place] [address] 81285- 4875 Mar, Major depressive disorder, recurrent episode, moderate F33.1 and Illness anxiety disorder F45.21 [place] [id number] [place] [address] 88925- 3178 Mar, Major depressive disorder, recurrent episode, moderate F33.1 [place] [address] [address]- 0595 Feb, Major depressive disorder, recurrent episode, moderate F33.1 [facility] [address] [place] [address] 72658- 5838 Jan, Major depressive disorder, recurrent episode, moderate F33.1 [facility] [address] [place] [address] 11805- 7425 Jan, Major depressive disorder, recurrent episode, moderate F33.1 [facility] [address], [place] [address]- 6123 Dec, Major depressive disorder, recurrent episode, moderate F33.1 [place] [id number] [address]- 9356 Dec, Major depressive disorder, recurrent episode, moderate F33.1 [facility] [address], [place] [address]- 2716 Jul, Major depressive disorder, recurrent episode, moderate F33.1 [facility] [address] [address] 2546 Jul, Major depressive disorder, recurrent episode, moderate F33.1 [facility] [address], [place] [address]- 5956 Jun, Major depressive disorder, recurrent episode, moderate F33.1 [facility] [address], [place] [address]- 7086 May, Major depressive disorder, recurrent episode, moderate F33.1 [facility] [address], [place] [address]- 4106 Apr, Major depressive disorder, recurrent episode, moderate F33.1 [facility] [address], [place] [address]- 2679 Mar, [facility] [address], [place] [address]- 4586 Feb, Major depressive disorder, recurrent episode, moderate F33.1 [facility] [address], [place] [address]- 6116 Jan, Major depressive disorder, recurrent episode, moderate F33.1 [facility] [address], [place] [address]- 0526 Dec, Major depressive disorder, recurrent episode, moderate F33.1 [facility] [address], [place] [address]- 6096 Nov, Major depressive disorder, recurrent episode, moderate F33.1 [facility] [id number] [address]- 1506 Jul, Major depressive disorder, recurrent episode, moderate F33.1 [facility] [id number]- 4937 Jan, Major depressive disorder, recurrent episode, moderate 296.32 [facility] [address]- 2479 Jan, Major depressive disorder, recurrent episode, moderate 296.32 [facility] [address] 2661 Dec, Major depressive disorder, recurrent episode, moderate 296.32 [facility] [address]- 5878 Dec, Major depressive disorder, recurrent episode, moderate 296.32 [facility] [address] 6830 Nov, Major depressive disorder, recurrent episode, moderate 296.32 [facility] [address]- 7067 October, Major depressive disorder, recurrent episode, moderate 296.32 [facility] [address] 0439 Sep, [facility] [address]- 2316 Sep, [facility] [id number] [address]- 2552 Aug, [facility] [address], [place] [address]- 0605 Aug, [facility] [address], [place] [address]- 1415 Aug, [facility] [address], [place] [address]- 2177 Aug, [facility] [address], [place] [address]- 8742 Aug, [facility] [address] [place] [address]- 9150 Jul, 2014 [facility] [place] [facility] [address] [id number] [place] 0744 Jul, 2014 [facility] [place] [facility] [address] [id number] [place] 4386 Jul, 2014 [facility] [place] [facility] [address] [id number] [place] [address]- 1966 Jul, 2014 [facility] [place] [facility] [address] [id number] [place] 2092 Jun, [facility] [place] [facility] [address] [id number] [place] [address]- 8184 Jun, [facility] [place] [facility] [address] [id number] [place] 2771 May, [facility] [place] [facility] [address] [id number] [place] [address]- 8054 May, [facility] [place] [facility] [address] [id number] [place] [address]- 9379 Apr, [facility] [place] [facility] [address] [id number] [place] [address]- 1006 Apr, [facility] [place] [facility] [address] [id number] [place] [address]- 2997 Mar, [facility] [place] [facility] [address] [id number] [place] [address]- 1203 Mar, [facility] [place] [facility] [address] [id number] [place] [address]- 9798 Mar, [facility] [place] [facility] [address] [id number] [place] 3331 Mar, [facility] [place] [facility] [address] [id number] [place] 4170 Mar, [facility] [place] [facility] [address] [id number] [place] [address]- 4426 Mar, [facility] [place] [facility] [address] [id number] [place] [address]- 9557 Mar, [facility] [place] [facility] [address] [id number] [place] [address]- 7384 Mar, [facility] [place] [facility] [address] [id number] [place] [address]- 9055 Feb, [facility] [place] [facility] [address] [id number] [place] [address]- 4438 Feb, [facility] [place] [facility] [address] [id number] [place] [address]- 7643 Feb, [facility] [place] [facility] [address] [id number] [place] [address]- 4218 Feb, [facility] [place] [facility] [address] [id number] [place] [address]- 5115 Jan, [facility] [place] [facility] [address] [id number] [place] [address]- 2480 Jan, [facility] [place] [facility] [address] [id number] [place] [address]- 9690 Dec, [facility] [place] [facility] [address] [id number] [place] [address]- 8565 Dec, [facility] [place] [facility] [address] [id number] [place] [address]- 3134 Nov, [facility] [place] [facility] [address] [id number] [address]- 0620 Nov, [facility] [place] [facility] [address] [id number] [place] [address]- 5176 October, [facility] [place] [facility] [address] [id number] [place] [address] October, [facility] [place] [facility] [address] [id number] [place] [address] Sep, [facility] [place] [facility] [address] [id number], [place] [address] Sep, [facility] [id number], [place] [address] Aug, [facility] [id number], [place] [address] Aug, [facility] [id number], [place] [address] Jul, [facility] [id number], [place] [address] Jul, [facility] [id number] [place] [address] Jun, [facility] [id number], [place] [address] Jun, [facility] [id number], [place] [address] Mar, [facility] [id number], [place] [address] Mar, [facility] [id number], [place] [address] Mar, [facility] [id number], [place] [address] Mar, [facility] [address] [id number], [place] [address] Mar, [facility] [address] [id number], [place] [address] May, IMMUNIZATIONS No Known Immunizations SOCIAL HISTORY Never Assessed REASON FOR VISIT f/u PLAN OF CARE Activity Details Follow Up 2 Weeks Reason: VITAL SIGNS MEDICATIONS Unknown Medications RESULTS No Results PROCEDURES Procedure Date Ordered Result Body Site [facility] VISIT MENTAL HEALTH ESTAB PT January 01, 2017 Psychotherapy, patient &/family, 45 minutes, established patient January 01, 2017 INSTRUCTIONS MEDICATIONS ADMINISTERED No Known Medications
--- OUTSIDE RECORDS SUMMARY | 2018-08-03 05:55 | XMS REPORT | CCD ---
Author Author [facility]icha Thompson Organization [facility] Address [address] [place] [address] Phone Care Team Providers Care Sales Utility Representative Name Role Phone PP Unavailable CCM Unavailable Summary Purpose Interface Exchange Insurance Providers Payer name Policy type / Coverage type Covered green party ID Effective Begin Date Effective End Date WPS Medicare Part B Medicare Part B [id number] 2013 Unknown [facility] Medicare Part B [id number] 2013 Unknown Family history Grandmother Diagnosis Age [...] status Unknown 01/29/[address]: 687443448 Never smoker 01/29/[address]: 295957 Currently drinks alcohol mixed drink before bed 01/29/2011 Has the patient ever used illegal drugs? Unknown Has never used illegal drugs 01/29/2011 Allergies, Adverse Reactions, Alerts Substance Reaction Codes Entered Date Inactivated Date Status * NO KNOWN FOOD ALLERGIES Unknown 06/11/2011 No Inactive Date Active Latex Unknown 01/29/2011 No Inactive Date Active * OTHER REACTION - SEE ANSWER BOX anaphylaxis Unknown 2016 No Inactive Date Active SULFA (SULFONAMIDES) Unknown 01/29/2011 No Inactive Date Active Past Medical History Illness Codes Condition Status Onset Date Resolved Date Dysuria ICD-9: 788.1 ICD-10: R30.0 Active 12/09/2015 Unknown Essential (primary) hypertension ICD-9: 401.1 ICD-10: I10 Active 06/25/2016 Unknown Generalized anxiety disorder ICD-9: 300.02 ICD-10: F41.1 Active 07/08/2018 Unknown Impaired fasting glucose ICD-9: 790.21 ICD-10: R73.01 Active 07/08/2018 Unknown Major depressive disorder, recurrent, mild ICD-9: 296.31 ICD-10: F33.0 Active 11/25/2017 Unknown 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 malabsorption with proteinuria ICD-9: 281.1 ICD-10: D51.1 Active 02/12/2016 Unknown Vitamin D deficiency, unspecified ICD-9: 268.9 ICD-10: E55.9 Active 02/12/2016 Unknown Acute upper respiratory infection, unspecified ICD-9: 465.9 ICD-10: J06.9 Active 06/16/2018 Unknown Chronic pain syndrome ICD-9: 338.4 ICD-10: G89.4 Active 03/04/2016 Unknown Essential (primary) hypertension ICD-9: 401.9 ICD-10: I10 Active 02/12/2016 Unknown Low back pain ICD-9: 724.2 ICD-10: M54.5 Active 07/07/2016 Unknown Vitamin B12 deficiency anemia due to intrinsic factor deficiency ICD-9: 281.0 ICD-10: D51.0 Active 04/19/2016 Unknown Cervicalgia ICD-9: 723.1 ICD-10: M54.2 Active 05/06/2016 Unknown Headache ICD-9: 784.0 ICD-10: R51 Active 08/14/2015 Unknown Obstructive sleep apnea (adult) (pediatric) ICD-9: 327.23 ICD-10: G47.33 Active 01/13/2018 Unknown Spinal stenosis, cervical region ICD-9: 723.0 ICD-10: M48.02 Active 07/07/2016 Unknown Allergic contact dermatitis due to plants, except food ICD-9: 692.6 ICD-10: L23.7 Active 10/19/2017 Unknown Generalized abdominal pain ICD-9: 789.07 ICD-10: R10.84 Active 09/17/2017 Unknown Hypokalemia ICD-9: 276.8 ICD-10: E87.6 Active 09/17/2017 Unknown Urinary tract infection, site not specified ICD-9: 599.0 ICD-10: N39.0 Active 09/17/2017 Unknown Pain in right knee ICD -9: 719.46 ICD-10: M25.561 Active 09/06/2017 Unknown Mixed hyperlipidemia ICD-9: 272.2 ICD-10: E78.2 Active 06/25/2016 Unknown Vitamin B12 deficiency anemia, unspecified ICD-9: 266.2 ICD-10: D51.9 Active 07/03/2016 Unknown Laceration without foreign body of scalp, initial encounter ICD-9: 873.0 ICD-10: S01.01XA Active 04/27/2017 Unknown Residual hemorrhoidal skin tags ICD-9: 455.9 ICD-10: K64.4 Active 04/06/2017 Unknown Pain in left foot ICD- 9: 729.5 ICD-10: M79.672 Active 05/26/2012 Unknown Pain in right foot ICD -9: 729.5 ICD-10: M79.671 Active 06/24/2015 Unknown Pain in right leg ICD- 9: 729.5 ICD-10: M79.604 Active 01/19/2017 Unknown Foot drop, left foot ICD-9: 736.79 ICD-10: M21.372 Active 10/12/2016 Unknown Foot drop, right foot ICD-9: 736.79 ICD-10: M21.371 Active 10/12/2016 Unknown Other abnormalities of gait and mobility [...] ICD-9: 719.47 ICD-10: M25.572 Active 06/24/2015 Unknown Hypoxemia ICD-9: 799.02 ICD-10: R09.02 Active 04/19/2016 Unknown Pleurodynia ICD-9: 786.50 ICD-10: R07.81 Active 04/19/2016 Unknown Encounter for immunization ICD-9: V04.81 ICD-10: Z23 Active 03/16/2016 Unknown Radiculopathy, lumbar region ICD-9: 724.4 ICD-10: M54.16 Active 03/16/2016 Unknown Mixed hyperlipidemia ICD-9: 272.4 ICD-10: E78.2 Active 02/12/2016 Unknown Encounter for screening mammogram for malignant neoplasm of breast ICD-9: V76.12 ICD-10: Z12.31 Active 02/02/2016 Unknown Encounter for immunization ICD-9: V03.89 ICD-10: Z23 Active 12/01/2015 Unknown Unspecified osteoarthritis, unspecified site ICD-9: 715.90 [...] sleep apnea Unknown Active 05/14/2011 Unknown 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 Active 03/11/2011 Unknown Overweight (BMI [...] Problems Condition Codes Effective Dates Condition Status Dysuria ICD-9: 788.1 ICD-10: R30.0 12/09/2015 Active Essential (primary) hypertension ICD-9: 401.1 ICD-10: I10 06/25/2016 Active Generalized anxiety disorder ICD-9: 300.02 ICD-10: F41.1 07/08/2018 Active Impaired fasting glucose ICD-9: 790.21 ICD-10: R73.01 07/08/2018 Active Major depressive disorder, recurrent, mild ICD-9: 296.31 ICD-10: F33.0 11/25/2017 Active 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 malabsorption with proteinuria ICD-9: 281.1 ICD-10: D51.1 02/12/2016 Active Vitamin D deficiency, unspecified ICD-9: 268.9 ICD-10: E55.9 02/12/2016 Active Acute upper respiratory infection, unspecified ICD-9: 465.9 ICD-10: J06.9 06/16/2018 Active Chronic pain syndrome ICD-9: 338.4 ICD-10: G89.4 03/04/2016 Active Essential (primary) hypertension ICD-9: 401.9 ICD-10: I10 02/12/2016 Active Low back pain ICD-9: 724.2 ICD-10: M54.5 07/07/2016 Active Vitamin B12 deficiency anemia due to intrinsic factor deficiency ICD-9: 281.0 ICD-10: D51.0 04/19/2016 Active Cervicalgia ICD-9: 723.1 ICD-10: M54.2 05/06/2016 Active Headache ICD-9: 784.0 ICD-10: R51 08/14/2015 Active Obstructive sleep apnea (adult) (pediatric) ICD-9: 327.23 ICD-10: G47.33 01/13/2018 Active Spinal stenosis, cervical region ICD-9: 723.0 ICD-10: M48.02 07/07/2016 Active Allergic contact dermatitis due to plants, except food ICD-9: 692.6 ICD-10: L23.7 10/19/2017 Active Generalized abdominal pain ICD-9: 789.07 ICD-10: R10.84 09/17/2017 Active Hypokalemia ICD-9: 276.8 ICD-10: E87.6 09/17/2017 Active Urinary tract infection, site not specified ICD-9: 599.0 ICD-10: N39.0 09/17/2017 Active Pain in right knee ICD -9: 719.46 ICD-10: M25.561 09/06/2017 Active Mixed hyperlipidemia ICD-9: 272.2 ICD-10: E78.2 06/25/2016 Active Vitamin B12 deficiency anemia, unspecified ICD-9: 266.2 ICD-10: D51.9 07/03/2016 Active Laceration without foreign body of scalp, initial encounter ICD-9: 873.0 ICD-10: S01.01XA 04/27/2017 Active Residual hemorrhoidal skin tags ICD-9: 455.9 ICD-10: K64.4 04/06/2017 Active Pain in left foot ICD- 9: 729.5 ICD-10: M79.672 05/26/2012 Active Pain in right foot ICD -9: 729.5 ICD-10: M79.671 06/24/2015 Active Pain in right leg ICD- 9: 729.5 ICD-10: M79.604 01/19/2017 Active Foot drop, left foot ICD-9: 736.79 ICD-10: M21.372 10/12/2016 Active Foot drop, right foot ICD-9: 736.79 ICD-10: M21.371 10/12/2016 Active Other abnormalities of gait and mobility [...] foot ICD-9: 719.47 ICD-10: M25.572 06/24/2015 Active Hypoxemia ICD-9: 799.02 ICD-10: R09.02 04/19/2016 Active Pleurodynia ICD-9: 786.50 ICD-10: R07.81 04/19/2016 Active Encounter for immunization ICD-9: V04.81 ICD-10: Z23 03/16/2016 Active Radiculopathy, lumbar region ICD-9: 724.4 ICD-10: M54.16 03/16/2016 Active Mixed hyperlipidemia ICD-9: 272.4 ICD-10: E78.2 02/12/2016 Active Encounter for screening mammogram for malignant neoplasm of breast ICD-9: V76.12 ICD-10: Z12.31 02/02/2016 Active Encounter for immunization ICD-9: V03.89 ICD-10: Z23 12/01/2015 Active Unspecified osteoarthritis, unspecified site ICD-9: 715.90 [...] Active sleep apnea Unknown 05/14/2011 Active 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 03/11/2011 Active Overweight (BMI 25.0-29.9) [...] Start Date Stop Date Status Fill Instructions diazepam 5 mg tablet RxNorm: 970711 1 Tablet(s) PO QHS 201808/15/2018 Active Effexor XR 150 mg capsule,extended release RxNorm: 905867 1 CAPSULE(S) PO BID 1 CAPSULE(S) PO BID 07/25/2018 12/21/2018 Active TAKE 1 CAPSULE BY MOUTH TWICE DAILY Vitamin D2 50,000 unit capsule RxNorm: 9936621 1 CAPSULE(S) PO QW X8 WEEKS 07/08/2018 09/05/2018 Active Patient requests 90 days supply Vitamin D2 50,000 unit capsule RxNorm: 3661812 1 Capsule(s) PO QW x8 weeks 07/08/2018 07/07/2018 Inactive Vitamin D2 50,000 unit capsule RxNorm: 3117255 1 Capsule(s) PO QW x8 weeks 07/08/2018 07/07/2018 Inactive diazepam 5 mg tablet RxNorm: 224101 1 Tablet(s) PO BID 201807/25/2018 Inactive tramadol 50 mg tablet RxNorm: 986195 1-2 Tablet(s) PO TID as needed 06/27/2018 08/25/2018 Active Claritin-D 12 Hour 5 mg-120 mg tablet,extended release RxNorm: 6021986 Tablet(s) as needed TAKE 1 TABLET BY MOUTH TWICE DAILY NEEDED 201808/13/2018 Active diazepam 5 mg tablet RxNorm: 081453 2 Tablet(s) (10 mg) PO QAM and 1 Tablet (5 mg ) PO QHS 06/15/2018 07/04/2018 Inactive Lipitor 20 mg tablet RxNorm: 828496 1 TABLET(S) PO DAILY 201705/12/2019 Active TAKE ONE TABLET BY MOUTH EVERY NIGHT AT BEDTIME tramadol 50 mg tablet RxNorm: 492387 1-2 Tablet(s) PO TID as needed 04/20/2018 06/17/2018 Inactive Valium 10 mg tablet RxNorm: 230379 1 Tablet(s) daily as needed 04/18/2018 05/31/2018 Inactive hydrocodone 10 mg-acetaminophen 325 mg tablet RxNorm: 482327 1 tab bid x 1 week then daily x 2 weeks then stop Tablet(s) PO Q6 for pain 04/1805/10/2018 Inactive diazepam 10 mg tablet RxNorm: 546727 1 Tablet(s) BID 04/18/2018 06/14/2018 Inactive Claritin-D 12 Hour 5 mg-120 mg tablet,extended release RxNorm: 4500633 Tablet(s) as needed TAKE 1 TABLET BY MOUTH TWICE DAILY NEEDED 201706/11/2018 Inactive tramadol 50 mg tablet RxNorm: 572402 1-2 Tablet(s) PO TID as needed 03/10/2018 04/07/2018 Inactive cyanocobalamin (vit B-12) 1,000 mcg/mL injection solution RxNorm: 398010 1 Milliliter(s) Inj 03/10/2018 03/10/2018 Inactive Seroquel 100 mg tablet RxNorm: 933901 1 TABLET(S) PO BID 201703/01/2019 Active TAKE 1 TABLET BY MOUTH TWICE DAILY hydrocodone 10 mg-acetaminophen 325 mg tablet RxNorm: 795469 1-2 Tablet(s) PO Q6 as needed for pain 02/21/2018 03/09/2018 Inactive Ventolin HFA 90 mcg/actuation aerosol inhaler RxNorm: 906063 1 OR 2 PUFF(S) INH Q6 PRN NEEDED 01/13/2018 07/11/2018 Inactive trazodone 100 mg tablet RxNorm: 072177 TABLET(S) TAKE 2 TABLETS BY MOUTH EVERY NIGHT AT BEDTIME 12/07/2017 09/02/2018 Active hydrocodone 10 mg-acetaminophen 325 mg tablet RxNorm: 148905 1-2 Tablet(s) PO Q6 as needed for pain 12/03/2017 12/25/2017 Inactive Ventolin HFA 90 mcg/actuation aerosol inhaler RxNorm: 082864 1 OR 2 PUFF(S) INH Q6 PRN NEEDED 11/26/2017 01/12/2018 Inactive Savella 100 mg tablet RxNorm: 546285 TABLET(S) PO TAKE 1 TABLET BY MOUTH DAILY 11/23/2017 No Stop Date Active Effexor XR 150 mg capsule,extended release RxNorm: 153589 1 CAPSULE(S) PO BID 1 CAPSULE(S) PO BID 11/23/2017 04/21/2018 Inactive TAKE 1 CAPSULE BY MOUTH TWICE DAILY diazepam 10 mg tablet RxNorm: 986547 Tablet(s) TAKE 1 TABLET BY MOUTH FOUR TIMES DAILY NEEDED 11/23/2017 03/09/2018 Inactive Claritin-D 12 Hour 5 mg-120 mg tablet,extended release RxNorm: 4635325 Tablet(s) as needed TAKE 1 TABLET BY MOUTH TWICE DAILY NEEDED 201706/14/2018 Inactive Valium 10 mg tablet RxNorm: 851320 1 Tablet(s) QID as needed 11/16/2017 01/14/2018 Inactive metoprolol tartrate 25 mg tablet RxNorm: 378927 TABLET(S) TABLET(S) 1/2 TABLET(S) PO BID TAKE 1/2 TABLET BY MOUTH TWICE DAILY 11/12/2017 No Stop Date Active pantoprazole 40 mg tablet,delayed release RxNorm: 977625 TAKE 1 TABLET BY MOUTH EVERY DAY 11/12/2017 05/10/2018 Inactive betamethasone dipropionate 0.05 % topical cream RxNorm: 912281 1 APPLICATION TOP BID 10/22/2017 11/04/2017 Inactive tramadol 50 mg tablet RxNorm: 441036 1-2 Tablet(s) PO TID as needed 10/20/2017 01/16/2018 Inactive prednisone 10 mg tablets in a dose pack RxNorm: 395527 1 Tablet(s) PO UD 10/19/2017 10/24/2017 Inactive 6-5-4-3-2-1 cyanocobalamin (vit B-12) 1,000 mcg/mL injection solution RxNorm: 345609 1 Milliliter(s) Inj 10/19/2017 10/19/2017 Inactive betamethasone dipropionate 0.05 % topical cream RxNorm: 852819 1 Application TOP BID 10/19/2017 10/21/2017 Inactive hydrocodone 10 mg-acetaminophen 325 mg tablet RxNorm: 683368 1-2 Tablet(s) PO Q6 as needed for pain 10/19/2017 11/10/2017 Inactive Effexor XR 150 mg capsule,extended release RxNorm: 640288 1 Capsule(s) PO BID 1 CAPSULE(S) PO BID 10/19/2017 11/22/2017 Inactive TAKE 1 CAPSULE BY MOUTH TWICE DAILY prednisone 5 mg tablet RxNorm: 846459 1 Tablet(s) PO UD 2017 No Stop Date Active Cipro 500 mg tablet RxNorm: 380631 1 Tablet(s) PO BID 201709/26/2017 Inactive Flagyl 500 mg tablet RxNorm: 628363 1 Tablet(s) PO TID 201709/26/2017 Inactive prednisone 10 mg tablet RxNorm: 164631 1 Tablet(s) PO UD 201709/16/2017 Inactive 2 tabs daily x 3 days 1 tab daily x 3 daily then resume usual 5mg daily hydrocodone 10 mg-acetaminophen 325 mg tablet RxNorm: 910927 1-2 Tablet(s) PO Q6 as needed for pain 09/10/2017 10/02/2017 Inactive Savella 100 mg tablet RxNorm: 096470 TABLET(S) PO TAKE 1 TABLET BY MOUTH DAILY 08/31/2017 No Stop Date Active cyanocobalamin (vit B-12) 1,000 mcg/mL injection solution RxNorm: 610166 1 Milliliter(s) Inj 08/19/2017 08/19/2017 Inactive pantoprazole 40 mg tablet,delayed release RxNorm: 080439 TAKE 1 TABLET BY MOUTH EVERY DAY 08/17/2017 11/11/2017 Inactive trazodone 100 mg tablet RxNorm: 658248 TABLET(S) TAKE 2 TABLETS BY MOUTH EVERY NIGHT AT BEDTIME 08/17/2017 12/06/2017 Inactive Ventolin HFA 90 mcg/actuation aerosol inhaler RxNorm: 932998 1 OR 2 PUFF(S) INH Q6 PRN NEEDED 08/11/2017 01/07/2018 Inactive Advair Diskus 250 mcg-50 mcg/dose powder for inhalation RxNorm: 4193842 1 Puff(s) INH BID 08/11/2017 12/08/2017 Inactive Advair Diskus 250 mcg-50 mcg/dose powder for inhalation RxNorm: 5589112 1 PUFF(S) INH BID 08/11/2017 11/08/2017 Inactive Ventolin HFA 90 mcg/actuation aerosol inhaler RxNorm: 976400 1 OR 2 PUFF(S) INH Q6 PRN NEEDED 08/11/2017 11/25/2017 Inactive hydrocodone 10 mg-acetaminophen 325 mg tablet RxNorm: 282694 1-2 Tablet(s) PO Q6 as needed for pain 08/03/2017 08/25/2017 Inactive tramadol 50 mg tablet RxNorm: 624773 1-2 Tablet(s) PO TID as needed 07/26/2017 04/19/2018 Inactive Valium 10 mg tablet RxNorm: 559902 1 Tablet(s) QID as needed 07/09/2017 09/06/2017 Inactive Effexor XR 150 mg capsule,extended release RxNorm: 554199 Capsule(s) 1 CAPSULE(S) PO BID 07/07/2017 10/18/2017 Inactive TAKE 1 CAPSULE BY MOUTH TWICE DAILY metoprolol tartrate 25 mg tablet RxNorm: 167794 Tablet(s) TABLET(S) 1/2 TABLET(S) PO BID TAKE 1/2 TABLET BY MOUTH TWICE DAILY 07/07/2017 11/11/2017 Inactive diazepam 10 mg tablet RxNorm: 100366 Tablet(s) TAKE 1 TABLET BY MOUTH FOUR TIMES DAILY NEEDED 07/07/2017 08/02/2017 Inactive cyanocobalamin (vit B-12) 1,000 mcg/mL injection solution RxNorm: 429010 1 Milliliter(s) Inj 07/06/2017 07/06/2017 Inactive tramadol 50 mg tablet RxNorm: 349621 1-2 Tablet(s) PO TID as needed 06/21/2017 09/17/2017 Inactive hydrocodone 10 mg-acetaminophen 325 mg tablet RxNorm: 936969 1-2 Tablet(s) PO Q6 as needed for pain 06/17/2017 07/09/2017 Inactive cyclobenzaprine 10 mg tablet RxNorm: 193667 TAKE 1 TABLET BY MOUTH THREE TIMES DAILY NEEDED FOR MUSCLE SPASMS 06/08/2017 08/31/2018 Active Claritin-D 12 Hour 5 mg-120 mg tablet,extended release RxNorm: 0965566 Tablet(s) as needed TAKE 1 TABLET BY MOUTH TWICE DAILY NEEDED 201709/04/2017 Inactive Lipitor 20 mg tablet RxNorm: 001177 1 TABLET(S) PO DAILY 201705/17/2018 Inactive TAKE ONE TABLET BY MOUTH EVERY NIGHT AT BEDTIME trazodone 100 mg tablet RxNorm: 306825 TABLET(S) TAKE 2 TABLETS BY MOUTH EVERY NIGHT AT BEDTIME 05/17/2017 08/14/2017 Inactive cyclobenzaprine 5 mg tablet RxNorm: 214716 Tablet(s) PO TAKE 1 TABLET BY MOUTH THREE TIMES DAILY NEEDED FOR MUSCLE SPASMS (New dose has not been sent to pharmacy) 05/11/2017 No Stop Date Active Valium 5 mg tablet RxNorm: 476840 1 Tablet(s) PO QID as needed (New dose has not been sent to pharmacy) 05/11/2017 Inactive diazepam 10 mg tablet RxNorm: 299007 TAKE 1 TABLET BY MOUTH FOUR TIMES DAILY NEEDED 04/28/2017 05/27/2017 Inactive hydrocodone 10 mg-acetaminophen 325 mg tablet RxNorm: 320402 1-2 Tablet(s) PO Q6 as needed for pain 04/27/2017 05/19/2017 Inactive cyanocobalamin (vit B-12) 1,000 mcg/mL injection solution RxNorm: 459409 1 Milliliter(s) Inj 04/27/2017 04/27/2017 Inactive hydrocodone 10 mg-acetaminophen 325 mg tablet RxNorm: 408798 1-2 Tablet(s) PO Q6 as needed for pain 03/17/2017 04/08/2017 Inactive Seroquel 100 mg tablet RxNorm: 732925 1 TABLET(S) PO BID 201603/06/2018 Inactive TAKE 1 TABLET BY MOUTH TWICE DAILY Valium 10 mg tablet RxNorm: 679335 1 Tablet(s) QID as needed 03/05/2017 05/03/2017 Inactive Claritin-D 12 Hour 5 mg-120 mg tablet,extended release RxNorm: 0321850 Tablet(s) as needed TAKE 1 TABLET BY MOUTH TWICE DAILY NEEDED 201604/13/2018 Inactive pantoprazole 40 mg tablet,delayed release RxNorm: 803537 TAKE 1 TABLET BY MOUTH EVERY DAY 02/26/2017 08/16/2017 Inactive tramadol 50 mg tablet RxNorm: 713785 1-2 Tablet(s) PO TID as needed 02/17/2017 05/17/2017 Inactive hydrocodone 10 mg-acetaminophen 325 mg tablet RxNorm: 425477 1-2 Tablet(s) PO Q6 as needed for pain 02/17/2017 03/11/2017 Inactive Valium 10 mg tablet RxNorm: 061987 1 Tablet(s) QID as needed 02/02/2017 03/03/2017 Inactive (Response to an electronic controlled substance refill request [id number]|[id number]|1|0|1) nystatin 100,000 unit/gram topical powder RxNorm: 272048 1 APPLICATION TOP QID UNTIL HEALED 01/21/2017 No Stop Date Active Advair Diskus 250 mcg-50 mcg/dose powder for inhalation RxNorm: 3026821 1 Puff(s) INH BID 01/21/2017 05/20/2017 Inactive hydrocodone 10 mg-acetaminophen 325 mg tablet RxNorm: 073115 1-2 Tablet(s) PO Q6 as needed for pain 01/21/2017 02/11/2017 Inactive metoprolol tartrate 25 mg tablet RxNorm: 325644 TABLET(S) 1/2 TABLET(S) PO BID TAKE 1/2 TABLET BY MOUTH TWICE DAILY 01/18/2017 07/06/2017 Inactive Effexor XR 150 mg capsule,extended release RxNorm: 511653 1 CAPSULE(S) PO BID 01/11/2017 07/06/2017 Inactive TAKE 1 CAPSULE BY MOUTH TWICE DAILY Effexor XR 150 mg capsule,extended release RxNorm: 431128 1 Capsule(s) PO BID 1 CAPSULE(S) PO BID 01/08/2017 07/06/2017 Inactive TAKE 1 CAPSULE BY MOUTH TWICE DAILY nystatin 100,000 unit/gram topical powder RxNorm: 977520 1 APPLICATION TOP QID UNTIL HEALED 12/17/2016 01/20/2017 Inactive hydrocodone 10 mg-acetaminophen 325 mg tablet RxNorm: 241931 1-2 Tablet(s) PO Q6 as needed for pain 12/17/2016 01/07/2017 Inactive Claritin-D 12 Hour 5 mg-120 mg tablet,extended release RxNorm: 4381259 Tablet(s) as needed TAKE 1 TABLET BY MOUTH TWICE DAILY NEEDED 201602/12/2017 Inactive Lipitor 20 mg tablet RxNorm: 801692 1 TABLET(S) PO DAILY 201606/07/2017 Inactive TAKE ONE TABLET BY MOUTH EVERY NIGHT AT BEDTIME Advair Diskus 250 mcg-50 mcg/dose powder for inhalation RxNorm: 5309109 1 Puff(s) INH BID 11/26/2016 01/20/2017 Inactive Valium 10 mg tablet RxNorm: 154770 1 Tablet(s) QID as needed 11/24/2016 01/22/2017 Inactive (Response to an electronic controlled substance refill request - RxReferenceNumber: [id number]|[id number]|1|0|1) cyanocobalamin (vit B-12) 1,000 mcg/mL injection solution RxNorm: 437512 1 Milliliter(s) Inj 11/17/2016 11/17/2016 Inactive tramadol 50 mg tablet RxNorm: 520097 1-2 Tablet(s) PO TID as needed 11/06/2016 10/19/2017 Inactive hydrocodone 10 mg-acetaminophen 325 mg tablet RxNorm: 481634 1-2 Tablet(s) PO Q6 as needed for pain 11/06/2016 11/27/2016 Inactive nystatin 100,000 unit/gram topical powder RxNorm: 822832 1 Application TOP QID until healed 10/27/2016 12/16/2016 Inactive cyanocobalamin (vit B-12) 1,000 mcg/mL injection solution RxNorm: 104340 1 Milliliter(s) Inj 10/12/2016 10/12/2016 Inactive trazodone 100 mg tablet RxNorm: 281190 Tablet(s) TAKE 2 TABLETS BY MOUTH EVERY NIGHT AT BEDTIME 09/24/2016 03/22/2017 Inactive Valium 10 mg tablet RxNorm: 197083 1 Tablet(s) QID as needed 09/24/2016 11/22/2016 Inactive (Response to an electronic controlled substance refill request - RxReferenceNumber: [id number]|[id number]|1|0|1) Savella 100 mg tablet RxNorm: 817301 TABLET(S) PO TAKE 1 TABLET BY MOUTH DAILY 09/18/2016 08/30/2017 Inactive pantoprazole 40 mg tablet,delayed release RxNorm: 789502 TAKE 1 TABLET BY MOUTH EVERY DAY 09/18/2016 02/25/2017 Inactive cyanocobalamin (vit B-12) 1,000 mcg/mL injection solution RxNorm: 075616 1 Milliliter(s) Inj 09/11/2016 09/11/2016 Inactive hydrocodone 10 mg-acetaminophen 325 mg tablet RxNorm: 062583 1-2 Tablet(s) PO Q6 as needed for pain 08/24/2016 11/05/2016 Inactive (Response to an electronic controlled substance refill request - RxReferenceNumber: [id number]|[id number]|1|0|1) Claritin-D 12 Hour 5 mg-120 mg tablet,extended release RxNorm: 3629221 Tablet(s) TAKE 1 TABLET BY MOUTH TWICE DAILY NEEDED 08/13/2016 04/13/2018 Inactive tramadol 50 mg tablet RxNorm: 303330 1-2 Tablet(s) PO TID PRN as needed 08/11/2016 11/05/2016 Inactive metoprolol tartrate 25 mg tablet RxNorm: 033161 TABLET(S) 1/2 TABLET(S) PO BID TAKE 1/2 TABLET BY MOUTH TWICE DAILY 08/10/2016 01/17/2017 Inactive pantoprazole 40 mg tablet,delayed release RxNorm: 602700 TAKE 1 TABLET BY MOUTH EVERY DAY 08/10/2016 11/05/2016 Inactive Savella 100 mg tablet RxNorm: 895502 TABLET(S) PO TAKE 1 TABLET BY MOUTH DAILY 08/10/2016 11/05/2016 Inactive Ventolin HFA 90 mcg/actuation aerosol inhaler RxNorm: 897461 1 OR 2 PUFF(S) INH Q6 PRN NEEDED 08/07/2016 02/02/2017 Inactive Diflucan 150 mg tablet RxNorm: 999823 1 Tablet(s) PO daily 08/201608/13/2016 Inactive nystatin 100,000 unit/mL oral suspension RxNorm: 281843 5 Milliliter(s) PO QID 08/07/2016 08/16/2016 Inactive hydrocodone 10 mg-acetaminophen 325 mg tablet RxNorm: 017098 1-2 Tablet(s) PO Q6 as needed for pain 08/04/2016 08/23/2016 Inactive (Response to an electronic controlled substance refill request - RxReferenceNumber: [id number]|1|0|1) Valium 10 mg tablet RxNorm: 375080 1 Tablet(s) QID as needed 07/20/2016 09/17/2016 Inactive (Response to an electronic controlled substance refill request - RxReferenceNumber: [id number]|1|0|1) tramadol 50 mg tablet RxNorm: 709958 1-2 Tablet(s) PO TID PRN as needed 07/15/2016 11/05/2016 Inactive ok to give 1 month ofprto=017 tablets cyanocobalamin (vit B-12) 1,000 mcg/mL injection solution RxNorm: 034966 Milliliter(s) Inj 07/03/2016 07/03/2016 Inactive Seroquel 100 mg tablet RxNorm: 799345 1 TABLET(S) PO BID 201603/15/2017 Inactive TAKE 1 TABLET BY MOUTH TWICE DAILY hydrocodone 10 mg-acetaminophen 325 mg tablet RxNorm: 683339 1-2 Tablet(s) PO Q6 as needed for pain 06/26/2016 08/03/2016 Inactive (Response to an electronic controlled substance refill request - RxReferenceNumber: [id number]|[id number]|1|0|1) Valium 10 mg tablet RxNorm: 909220 1 Tablet(s) QID as needed 05/11/2016 07/09/2016 Inactive (Response to an electronic controlled substance refill request - RxReferenceNumber: [id number]|1|0|1) tramadol 50 mg tablet RxNorm: 351400 1-2 Tablet(s) PO TID PRN as needed 05/11/2016 07/08/2016 Inactive ok to give 1 month fppgmp=331 tablets cyclobenzaprine 10 mg tablet RxNorm: 039983 TAKE 1 TABLET BY MOUTH THREE TIMES DAILY NEEDED FOR MUSCLE SPASMS 05/11/2016 05/10/2017 Inactive hydrocodone 10 mg-acetaminophen 325 mg tablet RxNorm: 727527 1-2 Tablet(s) PO Q6 as needed for pain 05/06/2016 06/25/2016 Inactive (Response to an electronic controlled substance refill request - RxReferenceNumber: [id number]|[id number]|1|0|1) cyanocobalamin (vit B-12) 1,000 mcg/mL injection solution RxNorm: 744680 1 Milliliter(s) Inj 04/20/2016 04/20/2016 Inactive hydrocodone 10 mg-acetaminophen 325 mg tablet RxNorm: 445685 1-2 Tablet(s) PO Q6 as needed for pain 04/03/2016 05/05/2016 Inactive (Response to an electronic controlled substance refill request - RxReferenceNumber: [id number]|[id number]|1|0|1) pantoprazole 40 mg tablet,delayed release RxNorm: 966224 TAKE 1 TABLET BY MOUTH EVERY DAY 04/02/2016 08/09/2016 Inactive Claritin-D 12 Hour 5 mg-120 mg tablet,extended release RxNorm: 1177650 Tablet(s) TAKE 1 TABLET BY MOUTH TWICE DAILY NEEDED 04/02/2016 11/05/2016 Inactive hydrocodone 10 mg-acetaminophen 325 mg tablet RxNorm: 642387 1-2 Tablet(s) PO Q6 as needed for pain 03/12/2016 04/02/2016 Inactive (Response to an electronic controlled substance refill request - RxReferenceNumber: [id number]|1|0|1) Effexor XR 150 mg capsule,extended release RxNorm: 556889 1 CAPSULE(S) PO BID 03/05/2016 01/07/2017 Inactive TAKE 1 CAPSULE BY MOUTH TWICE DAILY Ventolin HFA 90 mcg/actuation aerosol inhaler RxNorm: 404361 1 OR 2 PUFF(S) INH Q6 PRN NEEDED 02/19/2016 08/06/2016 Inactive cyanocobalamin (vit B-12) 1,000 mcg/mL injection solution RxNorm: 008918 Milliliter(s) Inj 02/13/2016 02/13/2016 Inactive hydrocodone 10 mg-acetaminophen 325 mg tablet RxNorm: 807510 1-2 Tablet(s) PO Q6 as needed for pain 02/05/2016 03/11/2016 Inactive (Response to an electronic controlled substance refill request - RxReferenceNumber: [id number]|1|0|1) Valium 10 mg tablet RxNorm: 434246 1 Tablet(s) QID as needed 02/05/2016 05/04/2016 Inactive (Response to an electronic controlled substance refill request - RxReferenceNumber: [id number]|1|0|1) tramadol 50 mg tablet RxNorm: 109535 1-2 Tablet(s) PO TID PRN as needed 02/05/2016 11/05/2016 Inactive ok to give 1 month srnnck=881 tablets hydrocodone 10 mg-acetaminophen 325 mg tablet RxNorm: 443706 1-2 Tablet(s) PO Q6 as needed for pain 01/08/2016 02/04/2016 Inactive (Response to an electronic controlled substance refill request - RxReferenceNumber: [id number]|1|0|1) metoprolol tartrate 25 mg tablet RxNorm: 432069 Tablet(s) 1/2 TABLET(S) PO BID TAKE 1/2 TABLET BY MOUTH TWICE DAILY 01/08/2016 08/09/2016 Inactive Symbicort 160 mcg-4.5 mcg/actuation HFA aerosol inhaler RxNorm: 6848628 2 INH BID 01/03/2016 11/25/2016 Inactive Symbicort 160 mcg-4.5 mcg/actuation HFA aerosol inhaler RxNorm: 3000538 1 INH daily 01/03/2016 01/02/2016 Inactive Lipitor 20 mg tablet RxNorm: 276282 1 TABLET(S) PO DAILY 201506/26/2016 Inactive TAKE ONE TABLET BY MOUTH EVERY NIGHT AT BEDTIME trazodone 100 mg tablet RxNorm: 698541 TAKE 2 TABLETS BY MOUTH EVERY NIGHT AT BEDTIME 12/30/2015 09/23/2016 Inactive Savella 100 mg tablet RxNorm: 213514 TABLET(S) PO TAKE 1 TABLET BY MOUTH DAILY 12/30/2015 08/09/2016 Inactive hydrocodone 10 mg-acetaminophen 325 mg tablet RxNorm: 098659 1-2 Tablet(s) PO Q6 as needed for pain 12/12/2015 01/07/2016 Inactive (Response to an electronic controlled substance refill request - RxReferenceNumber: [id number]|1|0|1) cyanocobalamin (vit B-12) 1,000 mcg/mL injection solution RxNorm: 538112 1 Milliliter(s) Inj 12/02/2015 12/02/2015 Inactive hydrocodone 10 mg-acetaminophen 325 mg tablet RxNorm: 006683 1-2 Tablet(s) PO Q6 as needed for pain 12/02/2015 12/11/2015 Inactive (Response to an electronic controlled substance refill request - RxReferenceNumber: [id number]|1|0|1) Claritin-D 12 Hour 5 mg-120 mg tablet,extended release RxNorm: 0338735 Tablet(s) TAKE 1 TABLET BY MOUTH TWICE DAILY 11/11/2015 11/10/2015 Inactive Claritin-D 12 Hour 5 mg-120 mg tablet,extended release RxNorm: 5034561 Tablet(s) TAKE 1 TABLET BY MOUTH TWICE DAILY NEEDED 11/11/2015 01/06/2016 Inactive tramadol 50 mg tablet RxNorm: 075916 1-2 Tablet(s) PO TID PRN as needed 11/05/2015 11/05/2016 Inactive ok to give 1 month krztyi=699 tablets Valium 10 mg tablet RxNorm: 946653 1 Tablet(s) QID as needed 11/05/2015 02/02/2016 Inactive (Response to an electronic controlled substance refill request - RxReferenceNumber: [id number]|1|0|1) cyanocobalamin (vit B-12) 1,000 mcg/mL injection solution RxNorm: 466043 1 Milliliter(s) Inj 10/29/2015 10/29/2015 Inactive hydrocodone 10 mg-acetaminophen 325 mg tablet RxNorm: 637425 1-2 Tablet(s) PO Q6 as needed for pain 10/28/2015 12/01/2015 Inactive (Response to an electronic controlled substance refill request - RxReferenceNumber: [id number]|1|0|1) pantoprazole 40 mg tablet,delayed release RxNorm: 130367 TAKE 1 TABLET BY MOUTH EVERY DAY 10/08/2015 04/01/2016 Inactive Seroquel 100 mg tablet RxNorm: 203196 1 TABLET(S) PO BID 201506/29/2016 Inactive TAKE 1 TABLET BY MOUTH TWICE DAILY trazodone 100 mg tablet RxNorm: 396367 TAKE 2 TABLETS BY MOUTH EVERY NIGHT AT BEDTIME 10/08/2015 10/01/2016 Inactive Lipitor 20 mg tablet RxNorm: 499573 1 TABLET(S) PO DAILY 201504/04/2016 Inactive TAKE ONE TABLET BY MOUTH EVERY NIGHT AT BEDTIME hydrocodone 10 mg-acetaminophen 325 mg tablet RxNorm: 209484 1-2 Tablet(s) PO Q6 as needed for pain 09/19/2015 10/18/2015 Inactive (Response to an electronic controlled substance refill request - RxReferenceNumber: [id number]|1|0|1) Valium 10 mg tablet RxNorm: 908846 1 Tablet(s) QID as needed 09/05/2015 11/03/2015 Inactive (Response to an electronic controlled substance refill request - RxReferenceNumber: [id number]|1|0|1) Savella 100 mg tablet RxNorm: 654551 Tablet(s) PO TAKE 1 TABLET BY MOUTH DAILY 07/19/2015 11/05/2016 Inactive Zithromax Z-Lauro 250 mg tablet RxNorm: 645921 1 Tablet(s) PO UD 07/12/2015 11/04/2015 Inactive z lauro hydrocodone 10 mg-acetaminophen 325 mg tablet RxNorm: 195107 1-2 Tablet(s) PO Q6 as needed for pain 07/10/2015 08/08/2015 Inactive (Response to an electronic controlled substance refill request - RxReferenceNumber: [id number]|1|0|1) tramadol 50 mg tablet RxNorm: 671330 1-2 Tablet(s) PO TID PRN as needed 07/04/2015 11/05/2016 Inactive ok to give 1 month bocvuv=691 tablets hydrocodone 10 mg-acetaminophen 325 mg tablet RxNorm: 501737 1-2 Tablet(s) PO Q6 as needed for pain 06/10/2015 07/09/2015 Inactive (Response to an electronic controlled substance refill request - RxReferenceNumber: [id number]|1|0|1) cyanocobalamin (vit B-12) 1,000 mcg/mL injection solution RxNorm: 903906 Milliliter(s) Inj 06/10/2015 06/10/2015 Inactive pantoprazole 40 mg tablet,delayed release RxNorm: 704305 TABLET(S) PO TAKE 1 TABLET BY MOUTH EVERY DAY 06/10/201511/05 Inactive pantoprazole 40 mg tablet,delayed release RxNorm: 224866 Tablet(s) PO TAKE 1 TABLET BY MOUTH EVERY DAY 06/06/201511/05 Inactive tramadol 50 mg tablet RxNorm: 094585 1-2 Tablet(s) PO TID PRN as needed 05/29/2015 06/27/2015 Inactive ok to give 1 month sjujjs=061 tablets tramadol 50 mg tablet RxNorm: 462326 1-2 Tablet(s) PO Q6 as needed 05/29/2015 06/09/2015 Inactive Valium 10 mg tablet RxNorm: 250898 1 Tablet(s) QID as needed 05/08/2015 07/06/2015 Inactive (Response to an electronic controlled substance refill request - RxReferenceNumber: [id number]|1|0|1) cyclobenzaprine 10 mg tablet RxNorm: 767486 TAKE 1 TABLET BY MOUTH THREE TIMES DAILY NEEDED FOR MUSCLE SPASMS 05/08/2015 05/10/2016 Inactive Effexor XR 150 mg capsule,extended release RxNorm: 676315 1 Capsule(s) PO BID 1 CAPSULE(S) PO BID 05/08/2015 11/05/2016 Inactive TAKE 1 CAPSULE BY MOUTH TWICE DAILY hydrocodone 10 mg-acetaminophen 325 mg tablet RxNorm: 619958 1-2 Tablet(s) PO Q6 as needed for pain 05/08/2015 06/06/2015 Inactive (Response to an electronic controlled substance refill request - RxReferenceNumber: [id number]|1|0|1) metoprolol tartrate 25 mg tablet RxNorm: 469560 1/2 TABLET(S) PO BID TAKE 1/2 TABLET BY MOUTH TWICE DAILY 05/06/201507/2015 Inactive Claritin-D 12 Hour 5 mg-120 mg tablet,extended release RxNorm: 7905006 TAKE 1 TABLET BY MOUTH TWICE DAILY 04/16/201506/2016 Inactive hydrocodone 10 mg-acetaminophen 325 mg tablet RxNorm: 029102 1-2 Tablet(s) PO Q6 as needed for pain 04/15/2015 05/07/2015 Inactive (Response to an electronic controlled substance refill request - RxReferenceNumber: [id number]|1|0|1) pantoprazole 40 mg tablet,delayed release RxNorm: 506498 TABLET(S) PO TAKE 1 TABLET BY MOUTH EVERY DAY 04/08/201506/06 Inactive hydrocodone 10 mg-acetaminophen 325 mg tablet RxNorm: 438551 1 Tablet(s) PO Q4 PRN TAKE 1-2 TABLETS BY MOUTH EVERY 6 HOURS NEEDED FOR PAIN 03/14/2015 04/12/2015 Inactive (Response to an electronic controlled substance refill request - RxReferenceNumber: [id number]|1|0|1) diazepam 10 mg tablet RxNorm: 600966 1 Tablet(s) TID TAKE 1 TABLET BY MOUTH THREE TIMES DAILY NEEDED 02/08/20152016 Inactive (Response to an electronic controlled substance refill request - RxReferenceNumber: [id number]|1|0|1) Effexor XR 150 mg capsule,extended release RxNorm: 239700 1 CAPSULE(S) PO BID 02/07/2015 05/07/2015 Inactive TAKE 1 CAPSULE BY MOUTH TWICE DAILY cyclobenzaprine 10 mg tablet RxNorm: 552995 TAKE 1 TABLET BY MOUTH THREE TIMES DAILY NEEDED FOR MUSCLE SPASMS 02/07/2015 05/07/2015 Inactive pantoprazole 40 mg tablet,delayed release RxNorm: 721352 TABLET(S) PO TAKE 1 TABLET BY MOUTH EVERY DAY 02/07/201504/07 Inactive hydrocodone 10 mg-acetaminophen 325 mg tablet RxNorm: 622932 1 Tablet(s) PO Q4 PRN TAKE 1-2 TABLETS BY MOUTH EVERY 6 HOURS NEEDED FOR PAIN 01/25/2015 02/23/2015 Inactive (Response to an electronic controlled substance refill request - RxReferenceNumber: [id number]|1|0|1) Bactroban Nasal 2 % ointment RxNorm: 123158 1 Application NASAL BID 01/10/2015 01/10/2015 Inactive mupirocin 2 % topical ointment RxNorm: 636411 1 Application TOP TID 1 APPLICATION TOP PRN 01/10/2015 01/19/2015 Inactive disregard order for nasal ointment , use on left knee trazodone 100 mg tablet RxNorm: 290904 TAKE 2 TABLETS BY MOUTH EVERY NIGHT AT BEDTIME 01/08/2015 10/07/2015 Inactive Seroquel 100 mg tablet RxNorm: 445373 1 TABLET(S) PO BID 201410/04/2015 Inactive TAKE 1 TABLET BY MOUTH TWICE DAILY cyclobenzaprine 10 mg tablet RxNorm: 688249 TAKE 1 TABLET BY MOUTH THREE TIMES DAILY NEEDED FOR MUSCLE SPASMS 01/08/2015 02/06/2015 Inactive hydrocodone 10 mg-acetaminophen 325 mg tablet RxNorm: 377727 1 Tablet(s) PO Q4 PRN TAKE 1-2 TABLETS BY MOUTH EVERY 6 HOURS NEEDED FOR PAIN 12/21/2014 01/19/2015 Inactive (Response to an electronic controlled substance refill request - RxReferenceNumber: [id number]|1|0|1) pantoprazole 40 mg tablet,delayed release RxNorm: 581595 TABLET(S) PO TAKE 1 TABLET BY MOUTH EVERY DAY 12/13/201402/06 Inactive Lipitor 20 mg tablet RxNorm: 530166 1 Tablet(s) PO daily 201409/08/2015 Inactive TAKE ONE TABLET BY MOUTH EVERY NIGHT AT BEDTIME Valium 10 mg tablet RxNorm: 454403 1 Tablet(s) QID as needed 12/12/2014 02/09/2015 Inactive (Response to an electronic controlled substance refill request - RxReferenceNumber: [id number]|1|0|1) hydrocodone 10 mg-acetaminophen 325 mg tablet RxNorm: 825587 Tablet(s) TAKE 1-2 TABLETS BY MOUTH EVERY 6 HOURS NEEDED FOR PAIN 12/12/2014 12/20/2014 Inactive ( Response to an electronic controlled substance refill request - RxReferenceNumber: [id number]|1|0|1) Lipitor 20 mg tablet RxNorm: 463849 1 Tablet(s) PO daily 201412/12/2014 Inactive TAKE ONE TABLET BY MOUTH EVERY NIGHT AT BEDTIME pantoprazole 40 mg tablet,delayed release RxNorm: 315177 TABLET(S) PO TAKE 1 TABLET BY MOUTH EVERY DAY 12/06/201411/05 Inactive Savella 100 mg tablet RxNorm: 800385 Tablet(s) PO TAKE 1 TABLET BY MOUTH DAILY 12/06/2014 07/18/2015 Inactive Lipitor 20 mg tablet RxNorm: 949011 1 Tablet(s) PO daily 201412/10/2014 Inactive TAKE ONE TABLET BY MOUTH EVERY NIGHT AT BEDTIME Valium 10 mg tablet RxNorm: 328822 TAKE 1 TABLET BY MOUTH FOUR TIMES DAILY NEEDED FOR ANXIETY 12/06/2014 12/11/2014 Inactive Valium 10 mg tablet RxNorm: 468231 1 Tablet(s) QID as needed 11/13/2014 12/11/2014 Inactive (Response to an electronic controlled substance refill request - RxReferenceNumber: [id number]|1|0|1) hydrocodone 10 mg-acetaminophen 325 mg tablet RxNorm: 467421 Tablet(s) TAKE 1-2 TABLETS BY MOUTH EVERY 6 HOURS NEEDED FOR PAIN 11/13/2014 12/11/2014 Inactive ( Response to an electronic controlled substance refill request - RxReferenceNumber: [id number]|1|0|1) hydrocodone 10 mg-acetaminophen 325 mg tablet RxNorm: 215723 Tablet(s) TAKE 1-2 TABLETS BY MOUTH EVERY 6 HOURS NEEDED FOR PAIN 11/08/2014 11/12/2014 Inactive ( Response to an electronic controlled substance refill request - RxReferenceNumber: [id number]|1|0|1) Valium 10 mg tablet RxNorm: 287460 1 Tablet(s) QID as needed 11/08/2014 11/12/2014 Inactive (Response to an electronic controlled substance refill request - RxReferenceNumber: [id number]|1|0|1) metoprolol tartrate 25 mg tablet RxNorm: 349227 1/2 TABLET(S) PO BID TAKE 1/2 TABLET BY MOUTH TWICE DAILY 11/08/2014 Inactive Valium 10 mg tablet RxNorm: 988112 TAKE 1 TABLET BY MOUTH FOUR TIMES DAILY NEEDED FOR ANXIETY 11/06/2014 12/09/2014 Inactive Vitamin D2 50,000 unit capsule RxNorm: 278176 1 Capsule(s) PO QW 10/24/2014 10/23/2014 Inactive Vitamin D2 50,000 unit capsule RxNorm: 431906 1 Capsule(s) PO QW x 8 weeks 10/24/2014 12/22/2014 Inactive Entyvio 300 mg intravenous solution RxNorm: 5577185 IV 2014 No Stop Date Active hydrocodone 10 mg-acetaminophen 325 mg tablet RxNorm: 241362 Tablet(s) TAKE 1-2 TABLETS BY MOUTH EVERY 6 HOURS NEEDED FOR PAIN 10/05/2014 11/03/2014 Inactive ( Response to an electronic controlled substance refill request - RxReferenceNumber: [id number]|1|0|1) Valium 10 mg tablet RxNorm: 902606 TAKE 1 TABLET BY MOUTH EVERY 8 HOURS NEEDED 10/05/2014 11/03/2014 Inactive (Response to an electronic controlled substance refill request - RxReferenceNumber: [id number]|1|0|1) Valium 10 mg tablet RxNorm: 205150 1 Tablet(s) PO QID as needed TAKE 1 TABLET BY MOUTH 10/05/2014 11/05/2016 Inactive (Response to an electronic controlled substance refill request - RxReferenceNumber: [id number]|1|0|1) Valium 10 mg tablet RxNorm: 269174 TAKE 1 TABLET BY MOUTH THREE TIMES DAILY NEEDED 09/04/2014 10/03/2014 Inactive (Response to an electronic controlled substance refill request - RxReferenceNumber: [id number]|1|0|1) Valium 10 mg tablet RxNorm: 798729 1 Tablet(s) PO Q8 PRN as needed 09/04/2014 11/09/2014 Inactive hydrocodone 10 mg-acetaminophen 325 mg tablet RxNorm: 979837 Tablet(s) TAKE 1-2 TABLETS BY MOUTH EVERY 6 HOURS NEEDED FOR PAIN 08/27/2014 09/25/2014 Inactive ( Response to an electronic controlled substance refill request - RxReferenceNumber: [id number]|1|0|1) Claritin-D 12 Hour 5 mg-120 mg tablet,extended release RxNorm: 2695373 1 Tablet(s ) PO BID 08/27/2014 04/16/2015 Inactive Ventolin HFA 90 mcg/actuation aerosol inhaler RxNorm: 683535 1 or 2 Puff(s) INH Q6 PRN as needed 08/09/2014 03/06/2015 Inactive pantoprazole 40 mg tablet,delayed release RxNorm: 459594 Tablet(s) PO TAKE 1 TABLET BY MOUTH EVERY DAY 08/09/201408/08 Inactive pantoprazole 40 mg tablet,delayed release RxNorm: 159982 TAKE 1 TABLET BY MOUTH EVERY DAY 08/09/2014 11/05/2016 Inactive diazepam 10 mg tablet RxNorm: 515121 TAKE 1 TABLET BY MOUTH THREE TIMES DAILY NEEDED 07/02/2014 07/31/2014 Inactive (Response to an electronic controlled substance refill request - RxReferenceNumber: [id number]|1|0|1) Valium 10 mg tablet RxNorm: 064089 1 Tablet(s) PO Q8 PRN as needed 07/02/2014 07/01/2014 Inactive hydrocodone 10 mg-acetaminophen 325 mg tablet RxNorm: 522819 Tablet(s) TAKE 1-2 TABLETS BY MOUTH EVERY 6 HOURS NEEDED FOR PAIN 06/14/2014 07/13/2014 Inactive ( Response to an electronic controlled substance refill request - RxReferenceNumber: [id number]|1|0|1) diazepam 10 mg tablet RxNorm: 639521 TAKE 1 TABLET BY MOUTH THREE TIMES DAILY NEEDED 05/29/2014 06/27/2014 Inactive (Response to an electronic controlled substance refill request - RxReferenceNumber: [id number]|1|0|1) diazepam 10 mg tablet RxNorm: 632609 Tablet(s) PO TAKE 1 TABLET BY MOUTH THREE TIMES DAILY NEEDED 05/29/20142013 Inactive (Appended: Controlled substance eRx refill - RxReferenceNumber: [id number]|1|0|1) hydrocodone 10 mg-acetaminophen 325 mg tablet RxNorm: 723273 Tablet(s) TAKE 1-2 TABLETS BY MOUTH EVERY 6 HOURS NEEDED FOR PAIN 05/17/2014 06/13/2014 Inactive ( Response to an electronic controlled substance refill request - RxReferenceNumber: [id number]|1|0|1) diazepam 10 mg tablet RxNorm: 482183 Tablet(s) PO TAKE 1 TABLET BY MOUTH THREE TIMES DAILY NEEDED 04/27/20142013 Inactive (Appended: Controlled substance eRx refill - RxReferenceNumber: [id number]|1|0|1) Anucort-HC 25 mg suppository RxNorm: 1866922 1 SUPPOSITORY RTL QDAY PRN NEEDED 04/03/2014 06/01/2014 Inactive metoprolol tartrate 25 mg tablet RxNorm: 026683 1/2 TABLET(S) PO BID TAKE 1/2 TABLET BY MOUTH TWICE DAILY 04/03/201408/2014 Inactive Anucort-HC 25 mg suppository RxNorm: 4696036 1 SUPPOSITORY RTL QDAY PRN NEEDED 04/03/2014 06/01/2014 Inactive Seroquel 100 mg tablet RxNorm: 270455 1 TABLET(S) PO BID 201312/28/2014 Inactive TAKE 1 TABLET BY MOUTH TWICE DAILY Anucort-HC 25 mg suppository RxNorm: 3543937 1 SUPPOSITORY RTL QDAY PRN NEEDED 04/03/2014 06/01/2014 Inactive hydrocodone 10 mg-acetaminophen 325 mg tablet RxNorm: 778633 Tablet(s) TAKE 1-2 TABLETS BY MOUTH EVERY 6 HOURS NEEDED FOR PAIN 03/22/2014 04/20/2014 Inactive ( Response to an electronic controlled substance refill request - RxReferenceNumber: [id number]|1|0|1) Claritin-D 12 Hour 5 mg-120 mg tablet,extended release RxNorm: 2436430 1 Tablet(s ) PO BID 03/22/2014 2014 Inactive diazepam 10 mg tablet RxNorm: 175573 TAKE 1 TABLET BY MOUTH THREE TIMES DAILY NEEDED 03/19/2014 04/16/2014 Inactive (Response to an electronic controlled substance refill request - RxReferenceNumber: [id number]|1|0|1) Lipitor 20 mg tablet RxNorm: 079519 1 TABLET(S) PO DAILY 201312/05/2014 Inactive TAKE ONE TABLET BY MOUTH EVERY NIGHT AT BEDTIME Effexor XR 150 mg capsule,extended release RxNorm: 049324 1 CAPSULE(S) PO BID 03/01/2014 01/24/2015 Inactive TAKE 1 CAPSULE BY MOUTH TWICE DAILY Claritin-D 12 Hour 5 mg-120 mg tablet,extended release RxNorm: 2750651 1 Tablet(s ) PO BID 02/19/2014 03/21/2014 Inactive cyanocobalamin (vit B-12) 1,000 mcg/mL injection solution RxNorm: 665868 Milliliter(s) Inj 02/15/2014 02/15/2014 Inactive hydrocodone 10 mg-acetaminophen 325 mg tablet RxNorm: 045797 1 Tablet(s) PO Q6 PRN TAKE ONE TO TWO TABLETS BY MOUTH EVERY 6 HOURS NEEDED FOR PAIN 01/30/2014 01/30/2014 Inactive (Response to an electronic controlled substance refill request - RxReferenceNumber: [id number]|1|0|1) hydrocodone 10 mg-acetaminophen 325 mg tablet RxNorm: 829703 TAKE 1-2 TABLETS BY MOUTH EVERY 6 HOURS NEEDED FOR PAIN 01/30/2014 02/19/2014 Inactive (Response to an electronic controlled substance refill request - RxReferenceNumber: [id number]| [id number]|1|0|1) cyanocobalamin (vit B-12) 1,000 mcg/mL injection kit RxNorm: 380903 1 Milliliter(s ) Inj 01/15/2014 01/15/2014 Inactive Kenalog 40 mg/mL suspension for injection RxNorm: 0811943 1 Milliliter(s) Inj 01/15/2014 01/15/2014 Inactive Anucort-HC 25 mg suppository RxNorm: 0564863 1 Suppository RTL QDAY PRN as needed 01/15/2014 02/13/2014 Inactive hydrocodone 10 mg-acetaminophen 325 mg tablet RxNorm: 001300 TAKE ONE TO TWO TABLETS BY MOUTH EVERY 6 HOURS NEEDED FOR PAIN 12/29/2013 01/18/2014 Inactive ( Response to an electronic controlled substance refill request - RxReferenceNumber: [id number]|1|0|1) trazodone 100 mg tablet RxNorm: 438898 TAKE 2 TABLETS BY MOUTH EVERY NIGHT AT BEDTIME 12/20/2013 12/14/2014 Inactive mupirocin 2 % topical ointment RxNorm: 372616 1 APPLICATION TOP PRN 12/14/2013 01/09/2015 Inactive cyanocobalamin (vit B-12) 1,000 mcg/mL injection solution RxNorm: 877590 1 Milliliter(s) Inj 12/04/2013 12/04/2013 Inactive Savella 100 mg tablet RxNorm: 072401 1 Tablet(s) PO daily TAKE 1 TABLET BY MOUTH DAILY 11/28/2013 11/05/2016 Inactive Savella 100 mg tablet RxNorm: 244018 Tablet(s) PO TAKE 1 TABLET BY MOUTH DAILY 10/27/2013 11/27/2013 Inactive mupirocin 2 % topical ointment RxNorm: 739646 1 Application TOP PRN 10/17/2013 No Stop Date Active trazodone 100 mg tablet RxNorm: 334120 Tablet(s) PO TAKE 2 TABLETS BY MOUTH EVERY NIGHT AT BEDTIME 09/26/2013 11/05/2016 Inactive cyclobenzaprine 10 mg tablet RxNorm: 737255 Tablet(s) PO TAKE ONE TABLET BY MOUTH THREE TIMES DAILY 09/26/2013 01/07/2015 Inactive diazepam 10 mg tablet RxNorm: 135418 Tablet(s) PO TAKE 1 TABLET BY MOUTH THREE TIMES DAILY NEEDED 08/15/20132013 Inactive (Appended: Controlled substance eRx refill - RxReferenceNumber: [id number]|1|0|1) diazepam 10 mg tablet RxNorm: 883071 1 Tablet(s) PO TID PRN TAKE 1 TABLET BY MOUTH THREE TIMES DAILY NEEDED 08/15/2013 Inactive (Appended: Controlled substance eRx refill - RxReferenceNumber: [id number]|1|0|1) Vitamin B-12 1,000 mcg/mL injection solution RxNorm: 252271 Milliliter(s) Inj 07/24/2013 07/24/2013 Inactive pantoprazole 40 mg tablet,delayed release RxNorm: 852225 Tablet(s) PO TAKE 1 TABLET BY MOUTH EVERY DAY 07/20/201308/08 Inactive hydrocodone 10 mg-acetaminophen 325 mg tablet RxNorm: 838714 1 or 2 Tablet(s) PO Q6 PRN limit 6 per day 06/26/20132013 Inactive (Appended: Controlled substance eRx refill - RxReferenceNumber: [id number]|1|0|1) trazodone 100 mg tablet RxNorm: 262588 Tablet(s) PO TAKE 2 TABLETS BY MOUTH EVERY NIGHT AT BEDTIME 06/26/2013 11/05/2016 Inactive pantoprazole 40 mg tablet,delayed release RxNorm: 455911 Tablet(s) PO TAKE 1 TABLET BY MOUTH EVERY DAY 06/20/201306/05 Inactive prednisone 10 mg tablets in a dose pack RxNorm: 892974 Tablet(s) PO 6-5-4-3-2-1 06/13/2013 06/12/2013 Inactive prednisone 10 mg tablets in a dose pack RxNorm: 092060 Tablet(s) PO UD 6-5-4-3-2- 1 06/13/2013 06/18/2013 Inactive Silvadene 1 % topical cream RxNorm: 329462 1 TOP daily apply thin layer to left knee daily 06/12/2013 06/18/2013 Inactive metoprolol tartrate 25 mg tablet RxNorm: 677323 1/2 Tablet(s) PO BID TAKE 1/2 TABLET BY MOUTH TWICE DAILY 05/19/2013 Inactive Lipitor 20 mg tablet RxNorm: 524321 1 Tablet(s) PO daily 201203/11/2014 Inactive TAKE ONE TABLET BY MOUTH EVERY NIGHT AT BEDTIME Vitamin B-12 1,000 mcg/mL injection solution RxNorm: 698204 1 Milliliter(s) Inj 05/10/2013 05/10/2013 Inactive hydrocodone 10 mg-acetaminophen 325 mg tablet RxNorm: 598067 1 or 2 Tablet(s) PO Q6 PRN limit 6 per day 03/16/2013 No Stop Date Active (Appended: Controlled substance eRx refill - RxReferenceNumber: [id number]|1|0|1) Seroquel 100 mg tablet RxNorm: 636559 1 Tablet(s) PO BID 201203/10/2014 Inactive TAKE 1 TABLET BY MOUTH TWICE DAILY Effexor XR 150 mg capsule,extended release RxNorm: 983919 1 Capsule(s) PO BID 03/16/2013 02/28/2014 Inactive TAKE 1 CAPSULE BY MOUTH TWICE DAILY fluconazole 150 mg tablet RxNorm: 636621 1 Tablet(s) PO daily 03/06/2013 03/12/2013 Inactive Kenalog 40 mg/mL Susp for Injection RxNorm: 1385375 Milliliter(s) Inj 03/06/2013 03/06/2013 Inactive Ventolin HFA 90 mcg/actuation Aerosol Inhaler RxNorm: 1549813 1 or 2 Puff(s) INH Q6 PRN 02/20/2013 03/16/2014 Inactive cyanocobalamin (vitamin B-12) 1,000 mcg/mL Injection RxNorm: 551526 Milliliter(s) Inj 02/20/2013 02/20/2013 Inactive Valium 10 mg tablet RxNorm: 422819 1 Tablet(s) PO Q8 PRN 01/3102/24/2014 Inactive Kenalog 40 mg/mL Susp for Injection RxNorm: 1557320 Milliliter(s) Inj 12/26/2012 12/26/2012 Inactive cyanocobalamin (vitamin B-12) 1,000 mcg/mL Injection RxNorm: 152842 Milliliter(s) Inj 12/21/2012 12/21/2012 Inactive hydrocodone 10 mg-acetaminophen 325 mg tablet RxNorm: 3379208 1 or 2 Tablet(s) PO Q6 PRN limit 6 per day 11/25/20122012 Inactive (Appended: Controlled substance eRx refill - RxReferenceNumber: [id number]|1|0|1) diazepam 10 mg tablet RxNorm: 335952 1 Tablet(s) PO TID PRN 08/15/2013 Inactive TAKE 1 TABLET BY MOUTH THREE TIMES DAILY NEEDED (Appended: Controlled substance eRx refill - RxReferenceNumber: [id number]|1|0|1) diazepam 10 mg tablet RxNorm: 015273 Tablet(s) PO TAKE 1 TABLET BY MOUTH THREE TIMES DAILY NEEDED 11/21/20122013 Inactive (Appended: Controlled substance eRx refill - RxReferenceNumber: [id number]|1|0|1) Vitamin B-12 1,000 mcg/mL Injection RxNorm: 831999 1 Milliliter(s) Inj 11/16/2012 11/16/2012 Inactive hydrocodone 10 mg-acetaminophen 325 mg tablet RxNorm: 7830079 1 or 2 Tablet(s) PO Q6 PRN limit 6 per day 10/24/20122012 Inactive (Appended: Controlled substance eRx refill - RxReferenceNumber: [id number]|1|0|1) hydrocodone 10 mg-acetaminophen 325 mg tablet RxNorm: 8825568 Tablet(s) PO limit 5x days 10/24/2012 10/23/2012 Inactive (Appended: Controlled substance eRx refill - RxReferenceNumber: [id number]|1|0|1) Savella 100 mg tablet RxNorm: 979484 Tablet(s) PO TAKE 1 TABLET BY MOUTH DAILY 10/14/2012 12/05/2014 Inactive Tubersol 5 tub. unit/0.1 mL Intradermal RxNorm: 357258 Milliliter(s) IDrm 09/26/2012 09/26/2012 Inactive hydrocodone 10 mg-acetaminophen 325 mg tablet RxNorm: 8655309 1 Tablet(s) PO Q4 PRN q 4 hr prn limit 5 per day 09/19/2012 No Stop Date Active (Appended: Controlled substance eRx refill - RxReferenceNumber: [id number]|1|0|1) hydrocodone 10 mg-acetaminophen 325 mg tablet RxNorm: 6422269 Tablet(s) PO TAKE 1 TABLET BY MOUTH FOUR TIMES DAILY 09/16/2012 10/23/2012 Inactive (Appended: Controlled substance eRx refill - RxReferenceNumber: [id number]|1|0|1) cyclobenzaprine 10 mg tablet RxNorm: 297013 Tablet(s) PO TAKE ONE TABLET BY MOUTH THREE TIMES DAILY 09/16/2012 09/25/2013 Inactive hydrocodone 10 mg-acetaminophen 325 mg tablet RxNorm: 0045497 1 Tablet(s) PO Q4 PRN q 4 hr prn limit 5 per day 09/14/2012 09/19/2012 Inactive (Appended: Controlled substance eRx refill - RxReferenceNumber: [id number]|1|0|1) cyanocobalamin (vitamin B-12) 1,000 mcg/mL Injection RxNorm: 017986 1 Milliliter(s ) Inj 09/12/2012 09/12/2012 Inactive cyclobenzaprine 10 mg tablet RxNorm: 145745 Tablet(s) PO TAKE ONE TABLET BY MOUTH THREE TIMES DAILY 09/02/2012 09/15/2012 Inactive hydrocodone 10 mg-acetaminophen 325 mg tablet RxNorm: 9642561 1 Tablet(s) PO QID TAKE 1 TABLET BY MOUTH FOUR TIMES DAILY 08/23/2012 09/13/2012 Inactive (Appended: Controlled substance eRx refill - RxReferenceNumber: [id number]|1|0|1) Kenalog 40 mg/mL Susp for Injection RxNorm: 8153197 1 Milliliter(s) Inj 08/11/2012 08/11/2012 Inactive Vitamin B-12 1,000 mcg/mL Injection RxNorm: 863234 1 Milliliter(s) Inj 08/11/2012 08/11/2012 Inactive Zithromax 250 mg tablet RxNorm: 199863 Tablet(s) PO 07/21/2012 09/14/2012 Inactive please give z lauro cefdinir 300 mg capsule RxNorm: 953549 1 Capsule(s) PO BID 07/20/2012 Inactive cefdinir 300 mg capsule RxNorm: 850723 1 Capsule(s) PO BID 07/27/2012 Inactive diazepam 10 mg tablet RxNorm: 500849 1 Tablet(s) PO TID PRN 12/201211/22/2012 Inactive TAKE 1 TABLET BY MOUTH THREE TIMES DAILY NEEDED (Appended: Controlled substance eRx refill - RxReferenceNumber: [id number]|1|0|1) Vitamin B-12 1,000 mcg/mL Injection RxNorm: 277498 1 Milliliter(s) Inj 07/13/2012 07/13/2012 Inactive pantoprazole 40 mg tablet,delayed release RxNorm: 207013 1 Tablet(s) PO daily 06/14/2012 06/13/2012 Inactive pantoprazole 40 mg tablet,delayed release RxNorm: 082060 1 Tablet(s) PO daily 06/14/2012 06/19/2013 Inactive trazodone 100 mg tablet RxNorm: 649680 Tablet(s) PO TAKE 2 TABLETS BY MOUTH EVERY NIGHT AT BEDTIME 06/06/2012 11/05/2016 Inactive hydrocodone 10 mg-acetaminophen 325 mg tablet RxNorm: 3046672 Tablet(s) PO TAKE 1 TABLET BY MOUTH FOUR TIMES DAILY 05/24/2012 08/23/2012 Inactive (Appended: Controlled substance eRx refill - RxReferenceNumber: [id number]|1|0|1) Symbicort 160 mcg-4.5 mcg/actuation HFA Aerosol Inhaler RxNorm: 4218182 1 INH daily 05/24/2012 05/23/2012 Inactive this is an increase in dosing Symbicort 160 mcg-4.5 mcg/actuation HFA Aerosol Inhaler RxNorm: 5704174 1 INH daily 05/24/2012 06/17/2013 Inactive this is an increase in dosing Ventolin HFA 90 mcg/actuation Aerosol Inhaler RxNorm: 807896 1 or 2 Puff(s) INH Q6 PRN 05/24/2012 05/23/2012 Inactive Ventolin HFA 90 mcg/actuation Aerosol Inhaler RxNorm: 338755 1 or 2 Puff(s) INH Q6 PRN 05/24/2012 02/19/2013 Inactive metoprolol tartrate 25 mg tablet RxNorm: 956294 Tablet(s) PO TAKE 1/2 TABLET BY MOUTH TWICE DAILY 05/24/2012 05/18/2013 Inactive hydrocodone-acetaminophen 10 mg-325 mg tablet RxNorm: 9031046 Tablet(s) PO TAKE 1 TABLET BY MOUTH FOUR TIMES DAILY 05/17/2012 05/17/2012 Inactive (Appended: Controlled substance eRx refill - RxReferenceNumber: [id number]|1|0|1) diazepam 10 mg tablet RxNorm: 018495 Tablet(s) PO 05/03/2012 07/13/2012 Inactive TAKE 1 TABLET BY MOUTH THREE TIMES DAILY NEEDED (Appended: Controlled substance eRx refill - RxReferenceNumber: [id number]|1|0|1) metoprolol tartrate 25 mg tablet RxNorm: 290866 Tablet(s) PO 11/05/2016 Inactive TAKE 1/2 TABLET BY MOUTH TWICE DAILY hydrocodone-acetaminophen 10 mg-325 mg tablet RxNorm: 5717053 Tablet(s) PO 04/11/2012 05/17/2012 Inactive TAKE 1 TABLET BY MOUTH FOUR TIMES DAILY (Appended: Controlled substance eRx refill - RxReferenceNumber: [id number]|1|0|1) ProAir HFA 90 mcg/actuation Aerosol Inhaler RxNorm: 833865 2 INH Q4 PRN 04/05/2012 04/29/2013 Inactive Symbicort 80 mcg-4.5 mcg/actuation HFA Aerosol Inhaler RxNorm: 7358508 2 INH BID 04/05/2012 04/04/2012 Inactive Symbicort 80 mcg-4.5 mcg/actuation HFA Aerosol Inhaler RxNorm: 6601118 2 INH BID 04/05/2012 05/23/2012 Inactive ProAir HFA 90 mcg/actuation Aerosol Inhaler RxNorm: 980326 2 INH Q4 PRN 04/05/2012 04/04/2012 Inactive diazepam 10 mg tablet RxNorm: 297575 Tablet(s) PO 03/17/2012 05/03/2012 Inactive TAKE 1 TABLET BY MOUTH THREE TIMES DAILY NEEDED (Appended: Controlled substance eRx refill - RxReferenceNumber: [id number]|1|0|1) Effexor XR 150 mg capsule,extended release RxNorm: 834398 Capsule(s) PO 03/13/2012 03/15/2013 Inactive TAKE 1 CAPSULE BY MOUTH TWICE DAILY fluconazole 150 mg tablet RxNorm: 257690 1 Tablet(s) PO daily 03/11/2012 03/17/2012 Inactive Lipitor 20 mg tablet RxNorm: 946842 Tablet(s) PO 02/25/2012 03/20/2013 Inactive TAKE ONE TABLET BY MOUTH EVERY NIGHT AT BEDTIME Seroquel 100 mg tablet RxNorm: 460662 1 Tablet(s) PO BID 201102/18/2013 Inactive TAKE 1 TABLET BY MOUTH TWICE DAILY hydrocodone-acetaminophen 10 mg-325 mg tablet RxNorm: 1931745 Tablet(s) PO 02/25/2012 04/11/2012 Inactive TAKE 1 TABLET BY MOUTH FOUR TIMES DAILY . (Appended : Controlled substance eRx refill - RxReferenceNumber: [id number]|1|0|1) Seroquel 100 mg tablet RxNorm: 593701 1 Tablet(s) PO BID 201102/24/2012 Inactive TAKE 1 TABLET BY MOUTH TWICE DAILY Nexium 40 mg capsule,delayed release RxNorm: 607497 1 Capsule(s) PO daily 02/16/2012 06/13/2012 Inactive Effexor XR 150 mg capsule,extended release RxNorm: 815416 Capsule(s) PO 01/14/2012 11/05/2016 Inactive TAKE 1 CAPSULE BY MOUTH TWICE DAILY Kenalog 40 mg/mL Susp for Injection RxNorm: 0112065 1 Milliliter(s) Inj 01/13/2012 01/13/2012 Inactive Vitamin B-12 1,000 mcg/mL Injection RxNorm: 383028 Milliliter(s) Inj 12/21/2011 12/21/2011 Inactive hydrocodone-acetaminophen 10 mg-325 mg tablet RxNorm: 0927141 Tablet(s) PO 12/15/2011 02/25/2012 Inactive TAKE 1 TABLET BY MOUTH FOUR TIMES DAILY (Appended: Controlled substance eRx refill - RxReferenceNumber: [id number]|[id number]|1|0|1) diazepam 10 mg tablet RxNorm: 779949 Tablet(s) PO 12/15/2011 03/17/2012 Inactive TAKE 1 TABLET BY MOUTH THREE TIMES DAILY NEEDED (Appended: Controlled substance eRx refill - RxReferenceNumber: [id number]|1|0|1) diazepam 10 mg Tab RxNorm: 959078 1 Tablet(s) PO daily 201112/15/2011 Inactive TAKE 1 TABLET BY MOUTH THREE TIMES DAILY (Appended: Controlled substance eRx refill - RxReferenceNumber: [id number]|1|0|1) hydrocodone-acetaminophen 10 mg-325 mg Tab RxNorm: 2826346 1 Tablet(s) PO QID 12/14/2011 12/15/2011 Inactive TAKE 1 TABLET BY MOUTH FOUR TIMES DAILY (Appended: Controlled substance eRx refill - RxReferenceNumber: [id number]|1|0|1) Seroquel 100 mg tablet RxNorm: 718219 Tablet(s) PO 11/27/2011 03/15/2013 Inactive TAKE 1 TABLET BY MOUTH TWICE DAILY hydrocodone-acetaminophen 10 mg-325 mg Tab RxNorm: 2578911 1 Tablet(s) PO QID 11/27/2011 12/13/2011 Inactive TAKE 1 TABLET BY MOUTH FOUR TIMES DAILY (Appended: Controlled substance eRx refill - RxReferenceNumber: [id number]|1|0|1) Seroquel 100 mg Tab RxNorm: 835175 1 Tablet(s) PO BID 201111/26/2011 Inactive Seroquel 100 mg tablet RxNorm: 882907 Tablet(s) PO 11/27/2011 02/16/2012 Inactive TAKE 1 TABLET BY MOUTH TWICE DAILY Nexium 40 mg capsule,delayed release RxNorm: 569829 1 Capsule(s) PO daily 11/16/2011 02/15/2012 Inactive cyanocobalamin (vitamin B-12) 1,000 mcg/mL Injection RxNorm: 329025 1 Milliliter(s ) Inj 10/30/2011 10/30/2011 Inactive hydrocodone-acetaminophen 10 mg-325 mg Tab RxNorm: 5470283 1 Tablet(s) PO QID 10/13/2011 11/23/2011 Inactive TAKE 1 TABLET BY MOUTH FOUR TIMES DAILY (Appended: Controlled substance eRx refill - RxReferenceNumber: [id number]|1|0|1) Effexor XR 150 mg capsule,extended release RxNorm: 598504 1 Capsule(s) PO BID 10/12/2011 01/09/2012 Inactive Fish Oil 1,000 mg Cap RxNorm: 1 Capsule(s) PO QID 10/02/2011 No Stop Date Active Vitamin B-12 1,000 mcg/mL Injection RxNorm: 889328 Milliliter(s) Inj 10/02/2011 10/02/2011 Inactive Kenalog 40 mg/mL Susp for Injection RxNorm: 3875064 Milliliter(s) Inj 10/02/2011 10/02/2011 Inactive diazepam 10 mg Tab RxNorm: 097465 1 Tablet(s) PO daily 201112/13/2011 Inactive TAKE 1 TABLET BY MOUTH THREE TIMES DAILY (Appended: Controlled substance eRx refill - RxReferenceNumber: [id number]|[id number]|1|0|1) Vitamin B-12 1,000 mcg/mL Injection RxNorm: 280277 Milliliter(s) Inj 09/01/2011 09/01/2011 Inactive hydrocodone-acetaminophen 10 mg-325 mg Tab RxNorm: 3519418 1 Tablet(s) PO QID 08/25/2011 10/05/2011 Inactive TAKE 1 TABLET BY MOUTH FOUR TIMES DAILY (Appended: Controlled substance eRx refill - RxReferenceNumber: [id number]|1|0|1) diazepam 10 mg Tab RxNorm: 366050 Tablet(s) PO 08/10/2011 No Stop Date Active TAKE 1 TABLET BY MOUTH THREE TIMES DAILY (Appended: Controlled substance eRx refill - RxReferenceNumber: [id number]|1|0|1) Vitamin B-12 1,000 mcg/mL Injection RxNorm: 904182 Milliliter(s) Inj 08/03/2011 08/03/2011 Inactive fluticasone 50 mcg/actuation Nasal Donnelly, Susp RxNorm: 8335201 2 Donnelly NASAL BID 07/27/2011 08/19/2012 Inactive hydrocodone-acetaminophen 10 mg-325 mg Tab RxNorm: 1436651 Tablet(s) PO 07/09/2011 08/24/2011 Inactive TAKE 1 TABLET BY MOUTH FOUR TIMES DAILY (Appended: Controlled substance eRx refill - RxReferenceNumber: [id number]|1|0|1) diazepam 10 mg Tab RxNorm: 526405 Tablet(s) PO 07/09/2011 08/09/2011 Inactive TAKE 1 TABLET BY MOUTH THREE TIMES DAILY (Appended: Controlled substance eRx refill - RxReferenceNumber: [id number]|1|0|1) diazepam 10 mg Tab RxNorm: 619516 Tablet(s) PO 07/08/2011 07/08/2011 Inactive TAKE 1 TABLET BY MOUTH THREE TIMES DAILY (Appended: Controlled substance eRx refill - RxReferenceNumber: [id number]|1|0|1) hydrocodone-acetaminophen 10 mg-325 mg Tab RxNorm: 7923135 Tablet(s) PO 07/08/2011 07/08/2011 Inactive TAKE 1 TABLET BY MOUTH FOUR TIMES DAILY (Appended: Controlled substance eRx refill - RxReferenceNumber: [id number]|1|0|1) cyclobenzaprine 10 mg tablet RxNorm: 876229 Tablet(s) PO 201109/01/2012 Inactive TAKE ONE TABLET BY MOUTH THREE TIMES DAILY Lipitor 40 mg Tab RxNorm: 336576 1 Tablet(s) PO daily 201106/16/2011 Inactive Lipitor 40 mg Tab RxNorm: 268971 1 Tablet(s) PO daily 201106/10/2012 Inactive trazodone 100 mg tablet RxNorm: 506622 Tablet(s) PO 06/02/2011 06/05/2012 Inactive TAKE 2 TABLETS BY MOUTH EVERY NIGHT AT BEDTIME diazepam 10 mg Tab RxNorm: 224919 Tablet(s) PO 05/28/2011 05/29/2011 Inactive TAKE 1 TABLET BY MOUTH THREE TIMES DAILY (Appended: Controlled substance eRx refill - RxReferenceNumber: [id number]|[id number]|1|0|1) diazepam 10 mg Tab RxNorm: 498963 Tablet(s) PO 05/28/2011 07/08/2011 Inactive TAKE 1 TABLET BY MOUTH THREE TIMES DAILY (Appended: Controlled substance eRx refill - RxReferenceNumber: [id number]|1|0|1) hydrocodone-acetaminophen 10 mg-325 mg Tab RxNorm: 7985722 1 Tablet(s) PO QID 05/26/2011 07/08/2011 Inactive metoprolol tartrate 25 mg tablet RxNorm: 819866 Tablet(s) PO 04/10/2012 Inactive TAKE 1/2 TABLET BY MOUTH TWICE DAILY Savella 100 mg tablet RxNorm: 063492 Tablet(s) PO 05/14/2011 10/13/2012 Inactive TAKE 1 TABLET BY MOUTH DAILY Influenza Virus Vaccine 0.5 mL RxNorm: IM 02/23/2011 02/23/2011 Inactive B12 1000 mcg RxNorm: IM 02/23/20112010 Inactive hydrocodone-acetaminophen 10 mg-325 mg Tab RxNorm: 3092634 1 Tablet(s) PO QID 01/29/2011 01/28/2011 Inactive Restasis 0.05 % eye drops in a dropperette RxNorm: 719262 1 OPH BID No Start Date Active vitamin A-vit C-vit E-zinc-Se Tab RxNorm: 1 Tablet(s) PO daily No Start Date Active garlic extract Oral RxNorm: Oral No Start Date Active Acidophilus Tab RxNorm : 2 Tablet(s) PO QHS No Start Date Active Cranberry Concentrate Cap RxNorm: 1 Capsule(s) PO BID No Start Date Active Xopenex 1.25 mg/3 mL Neb Solution RxNorm: 018854 1 Milliliter(s) INH TID No Start Date Active niacin ER 500 mg Tab RxNorm: 389421 2 Tablet(s) PO HS No Start Date Active SenokotXTRA 17.2 mg Tab RxNorm: 8910375 Oral No Start Date Active Lotemax 0.5 % eye ointment RxNorm: 1956183 1 OPH QHS No Start Date Active Gaviscon Extra Strength Oral RxNorm: Oral No Start Date Active melatonin 3 mg Tab RxNorm: 165675 1 Tablet(s) PO QHS No Start Date Active Voltaren 1 % Topical Gel RxNorm: 988404 4 Gram(s) TOP QID No Start Date Active Vitamin D 1,000 unit Cap RxNorm: 398279 1 Capsule(s) PO QHS No Start Date Active Mucinex DM 30 mg-600 mg 12 hr Tab RxNorm: 5652229 1 Tablet(s) PO BID No Start Date Active calcium citrate 200 mg (950 mg) Tab RxNorm: 484756 1 Tablet(s) PO QID No Start Date Active valerian 530 mg Cap RxNorm: 2 Capsule(s) PO QHS No Start Date Active Anucort-HC 25 mg Suppository RxNorm: 3919597 1 Suppository RTL QDAY PRN No Start Date 01/14/2014 Inactive Nexium 40 mg Capsule, delayed release RxNorm: 247701 1 Capsule(s) PO daily No Start Date 11/15/2011 Inactive Lipitor 20 mg tablet RxNorm: 541717 1 Tablet(s) PO QHS No Start Date 02/25/2012 Inactive mupirocin 2 % topical ointment RxNorm: 456853 1 Application TOP PRN No Start Date 10/16/2013 Inactive fluconazole 150 mg tablet RxNorm: 164936 1 Tablet(s) PO daily No Start Date 03/10/2012 Inactive Fish Oil 1,000 mg Cap RxNorm: 1 Capsule(s) PO TID No Start Date 10/01/2011 Inactive hydrocodone-acetaminophen 10 mg-325 mg Tab RxNorm: 9020029 1 Tablet(s) PO QID No Start Date 05/25/2011 Inactive Zithromax 250 mg tablet RxNorm: 862137 Tablet(s) PO No Start Date 07/20/2012 Inactive please give z lauro prednisone 10 mg tablet RxNorm: 070087 Tablet(s) PO taper. 6-5-4-3-2-1 # 21 No Start Date 09/16/2017 Inactive fluticasone 50 mcg/actuation Nasal Donnelly, Susp RxNorm: 9679678 2 Donnelly NASAL BID No Start Date 07/26/2011 Inactive Seroquel 100 mg Tab RxNorm: 878047 1 Tablet(s) PO BID No Start Date 11/26/2011 Inactive nystatin 100,000 unit/gram topical powder RxNorm: 410352 1 Application TOP QID until healed No Start Date 10/26/2016 Inactive Savella 100 mg Tab RxNorm: 749897 1 Tablet(s) PO daily No Start Date 05/13/2011 Inactive cyclobenzaprine 10 mg Tab RxNorm: 360597 1 Tablet(s) PO TID No Start Date 07/05/2011 Inactive metoprolol tartrate 25 mg Tab RxNorm: 810109 1/2 Tablet(s) PO BID No Start Date 05/25/2011 Inactive trazodone 100 mg Tab RxNorm: 698533 2 Tablet(s) PO QHS No Start Date 06/01/2011 Inactive Zithromax Z-Lauro 250 mg tablet RxNorm: 340138 1 Tablet(s) PO UD No Start Date 07/11/2015 Inactive z lauro Effexor XR 150 mg 24 hr Cap RxNorm: 264695 1 Capsule(s) PO BID No Start Date 10/11/2011 Inactive diazepam 10 mg Tab RxNorm: 091866 1 Tablet(s) PO TID No Start Date 05/28/2011 Inactive tramadol 50 mg tablet RxNorm: 211969 1-2 Tablet(s) PO Q6 as needed No Start Date 05/28/2015 Inactive Medication Administered Medication Codes Instructions Start Date Status cyanocobalamin (vit B-12) 1,000 mcg/mL injection solution RxNorm: 055889 1Milliliter 03/10/2018 No longer Active cyanocobalamin (vit B-12) 1,000 mcg/mL injection solution RxNorm: 909147 1Milliliter 10/19/2017 No longer Active cyanocobalamin (vit B-12) 1,000 mcg/mL injection solution RxNorm: 599971 1Milliliter 08/19/2017 No longer Active cyanocobalamin (vit B-12) 1,000 mcg/mL injection solution RxNorm: 630005 1Milliliter 07/06/2017 No longer Active cyanocobalamin (vit B-12) 1,000 mcg/mL injection solution RxNorm: 201203 1Milliliter 04/27/2017 No longer Active cyanocobalamin (vit B-12) 1,000 mcg/mL injection solution RxNorm: 872964 1Milliliter 11/17/2016 No longer Active cyanocobalamin (vit B-12) 1,000 mcg/mL injection solution RxNorm: 642007 1Milliliter 10/12/2016 No longer Active cyanocobalamin (vit B-12) 1,000 mcg/mL injection solution RxNorm: 588052 1Milliliter 09/11/2016 No longer Active cyanocobalamin (vit B-12) 1,000 mcg/mL injection solution RxNorm: 731802 Milliliter 07/03/2016 No longer Active cyanocobalamin (vit B-12) 1,000 mcg/mL injection solution RxNorm: 081547 1Milliliter 04/20/2016 No longer Active cyanocobalamin (vit B-12) 1,000 mcg/mL injection solution RxNorm: 258370 Milliliter 02/13/2016 No longer Active cyanocobalamin (vit B-12) 1,000 mcg/mL injection solution RxNorm: 745342 1Milliliter 12/02/2015 No longer Active cyanocobalamin (vit B-12) 1,000 mcg/mL injection solution RxNorm: 166132 1Milliliter 10/29/2015 No longer Active cyanocobalamin (vit B-12) 1,000 mcg/mL injection solution RxNorm: 573576 Milliliter 06/10/2015 No longer Active cyanocobalamin (vit B-12) 1,000 mcg/mL injection solution RxNorm: 649550 Milliliter 02/15/2014 No longer Active cyanocobalamin (vit B-12) 1,000 mcg/mL injection kit RxNorm : 024138 1Milliliter 01/15/2014 No longer Active Kenalog 40 mg/mL suspension for injection RxNorm: 1333079 1Milliliter 01/15/2014 No longer Active cyanocobalamin (vit B-12) 1,000 mcg/mL injection solution RxNorm: 948755 1Milliliter 12/04/2013 No longer Active Vitamin B-12 1,000 mcg/mL injection solution RxNorm: 860914 Milliliter 07/24/2013 No longer Active Vitamin B-12 1,000 mcg/mL injection solution RxNorm: 400530 1Milliliter 05/10/2013 No longer Active Kenalog 40 mg/mL Susp for Injection RxNorm: 5600558 Milliliter 03/06/2013 No longer Active cyanocobalamin (vitamin B-12) 1,000 mcg/mL Injection RxNorm : 521162 Milliliter 02/20/2013 No longer Active Kenalog 40 mg/mL Susp for Injection RxNorm: 1611866 Milliliter 12/26/2012 No longer Active cyanocobalamin (vitamin B-12) 1,000 mcg/mL Injection RxNorm : 365260 Milliliter 12/21/2012 No longer Active Vitamin B-12 1,000 mcg/mL Injection RxNorm: 820700 1Milliliter 11/16/2012 No longer Active Tubersol 5 tub. unit/0.1 mL Intradermal RxNorm: 340349 Milliliter 09/26/2012 No longer Active cyanocobalamin (vitamin B-12) 1,000 mcg/mL Injection RxNorm : 086196 1Milliliter 09/12/2012 No longer Active Kenalog 40 mg/mL Susp for Injection RxNorm: 0133062 1Milliliter 08/11/2012 No longer Active Vitamin B-12 1,000 mcg/mL Injection RxNorm: 087635 1Milliliter 08/11/2012 No longer Active Vitamin B-12 1,000 mcg/mL Injection RxNorm: 055029 1Milliliter 07/13/2012 No longer Active Kenalog 40 mg/mL Susp for Injection RxNorm: 3162753 1Milliliter 01/13/2012 No longer Active Vitamin B-12 1,000 mcg/mL Injection RxNorm: 024665 Milliliter 12/21/2011 No longer Active cyanocobalamin (vitamin B-12) 1,000 mcg/mL Injection RxNorm : 273171 1Milliliter 10/30/2011 No longer Active Vitamin B-12 1,000 mcg/mL Injection RxNorm: 818252 Milliliter 10/02/2011 No longer Active Kenalog 40 mg/mL Susp for Injection RxNorm: 7001159 Milliliter 10/02/2011 No longer Active Vitamin B-12 1,000 mcg/mL Injection RxNorm: 498417 Milliliter 09/01/2011 No longer Active Vitamin B-12 1,000 mcg/mL Injection RxNorm: 313956 Milliliter 08/03/2011 No longer Active B12 1000 mcg RxNorm: 02/23/2011 No longer Active Influenza Virus Vaccine 0.5 mL RxNorm: 02/23/2011 No longer Active Immunizations Vaccine Codes Date Status Influenza CVX: 141 03/17/2016 completed Pneumococcal (Adult) CVX: 133 12/02/2015 completed PPD Unknown 05/16/2015 completed PPD Unknown 05/29/2013 completed PPD Unknown 05/19/2013 completed Influenza CVX: 141 02/20/2013 completed Influenza CVX: 141 03/02/2012 completed Influenza CVX: 141 02/23/2011 completed Assessments Condition Codes Effective Dates Dysuria ICD-10: R30.0 ICD-9: 788.1 07/08/2018 Impaired fasting glucose ICD-10: R73.01 ICD-9: 790.21 07/08/2018 Generalized anxiety disorder ICD-10: F41.1 ICD-9: 300.02 07/08/2018 Essential (primary) hypertension ICD-10: I10 ICD-9: 401.1 07/08/2018 Major depressive disorder, recurrent, mild ICD-10: F33.0 ICD-9: 296.31 07/08/2018 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 malabsorption with proteinuria ICD-10: D51.1 ICD-9: 281.1 07/08/2018 Vitamin D deficiency, unspecified ICD-10: E55.9 ICD-9: 268.9 07/08/2018 Acute upper respiratory infection, unspecified ICD-10: J06.9 ICD-9: 465.9 06/16/2018 Essential (primary) hypertension ICD-10: I10 ICD-9: 401.9 06/01/2018 Chronic pain syndrome ICD-10: G89.4 ICD-9: 338.4 06/01/2018 Low back pain ICD-10: M54.5 ICD-9: 724.2 06/01/2018 Vitamin B12 deficiency anemia due to intrinsic factor deficiency ICD-10: D51.0 ICD-9: 281.0 04/05/2018 Cervicalgia ICD-10: M54.2 ICD-9: 723.1 01/13/2018 Obstructive sleep apnea (adult) (pediatric) ICD-10: G47.33 ICD-9: 327.23 01/13/2018 Headache ICD-10: R51 ICD-9: 784.0 01/13/2018 Spinal stenosis, cervical region ICD-10: M48.02 ICD-9: 723.0 11/25/2017 Allergic contact dermatitis due to plants, except food ICD- 10: L23.7 ICD-9: 692.6 10/19/2017 Generalized abdominal pain ICD-10: R10.84 ICD-9: 789.07 09/17/2017 Urinary tract infection, site not specified ICD-10: N39.0 ICD-9: 599.0 09/17/2017 Hypokalemia ICD-10: E87.6 ICD-9: 276.8 09/17/2017 Pain in right knee ICD-10: M25.561 ICD-9: 719.46 09/06/2017 Pain in left knee ICD-10: M25.562 ICD-9: 719.46 09/06/2017 Vitamin B12 deficiency anemia, unspecified ICD-10: D51.9 ICD-9: 266.2 08/19/2017 Mixed hyperlipidemia ICD-10: E78.2 ICD-9: 272.2 08/19/2017 Laceration without foreign body of scalp, initial encounter ICD-10: S01.01XA ICD-9: 873.0 04/27/2017 Residual hemorrhoidal skin tags ICD-10: K64.4 ICD-9: 455.9 04/06/2017 Pain in right foot ICD-10: M79.671 ICD-9: 729.5 02/25/2017 Pain in left foot ICD-10: M79.672 ICD-9: 729.5 02/25/2017 Pain in right leg ICD-10: M79.604 ICD-9: 729.5 01/19/2017 Foot drop, right foot ICD-10: M21.371 ICD-9: [...] left foot ICD-10: M25.572 ICD-9: 719.47 07/31/2016 Pleurodynia ICD-10: R07.81 ICD-9: 786.50 04/20/2016 Hypoxemia ICD-10: R09.02 ICD-9: 799.02 04/20/2016 Encounter for immunization ICD-10: Z23 ICD-9: V04.81 03/17/2016 Radiculopathy, lumbar region ICD-10: M54.16 ICD-9: 724.4 03/17/2016 Mixed hyperlipidemia ICD-10: E78.2 ICD-9: 272.4 02/13/2016 Encounter for screening mammogram for malignant neoplasm of breast ICD-10: Z12.31 ICD-9: V76.12 02/03/2016 Encounter for immunization ICD-10: Z23 ICD-9: V03.89 12/02/2015 Unspecified osteoarthritis, unspecified site ICD-10: M19.90 ICD-9: [...] 2011 Weight gain ICD-9: 783.1 06/29/2011 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 10/2010 Reason For Visit Reason For Visit Effective Dates Notes hypertension 06/16/2018 pain, generalized 06/01/2018 pain, generalized 04/05/2018 pain, generalized 03/10/2018 headache 01/13/2018 depression 11/25/2017 rash 10/19/2017 Hospital Follow Up 09/17/2017 ER follow up hypertension 09/06/2017 hypertension 08/19/2017 Hospital Follow Up 04/27/2017 ~generic 04/06/2017 growth [...] injuries from a fall (hurts after sitting "Mexican style" abdominal pain 02/12/2011 joint complaint 01/29/2011 Results Observation Observation Code Item Item Code Result Date %Hba1C Blc905 % HbA1c 37159-9 5.8 % 07/08/2018 %Hba1C Psa404 Gluc Ave 120 mg/dL 07/08/2018 Vitamin D 25 Oh Huc9113 VITAMIN D, 25 HYDROXY 35.57 ng/mL Cbc With Differential Ord2 WBC 8.50 K/ul 07/08/2018 Cbc With Differential Ord2 RBC 3.91 M/ul 07/08/2018 Cbc With Differential Ord2 HGB 12.6 g/dl 07/08/2018 Cbc With Differential Ord2 HCT 40.0 % 07/08/2018 Cbc With Differential Ord2 Neut% 49.8 % 07/08/2018 Cbc With Differential Ord2 MCV 102.3 fl 07/08/2018 Cbc With Differential Ord2 Lymph% 38.5 % 07/08/2018 Cbc With Differential Ord2 MCH 32.2 pg 07/08/2018 Cbc With Differential Ord2 [place]% 9.5 % 07/08/2018 Cbc With Differential Ord2 Eos% 2.1 % 07/08/2018 Cbc With Differential Ord2 MCHC 31.5 pg 07/08/2018 Cbc With Differential Ord2 PLT 259 K/ul 07/08/2018 Cbc With Differential Ord2 Baso% 0.1 % 07/08/2018 Cbc With Differential Ord2 RDW 14.0 % 07/08/2018 Cbc With Differential Ord2 Neut ABS# 4.23 K/ul 07/08/2018 Cbc With Differential Ord2 Lymph ABS# 3.27 K/ul 07/08/2018 Cbc With Differential Ord2 [place] ABS# 0.8 K/ul 07/08/2018 Cbc With Differential Ord2 Eos ABS# 0.2 K/ul 07/08/2018 Cbc With Differential Ord2 Baso ABS# 0.0 K/ul 07/08/2018 Comp Metabolic Gvt489 NA 140 mEq/L 07/08/2018 Comp Metabolic Tpy433 K 3.5 mEq/L 07/08/2018 Comp Metabolic Pcg911 CL 105 mEq/L 07/08/2018 Comp Metabolic Sgt784 CO2 26.0 mEq/L 07/08/2018 Comp Metabolic Oof158 ANION GAP 13 07/08/2018 Comp Metabolic Iuo204 GLUCOSE 125 mg/dL 07/08/2018 Comp Metabolic Rqg191 Creat 0.7 mg/dL 07/08/2018 Comp Metabolic Ftd468 eGFR 97 ml/min/1.73m2 07/08/2018 Comp Metabolic Onw443 BUN 12 mg/dL 07/08/2018 Comp Metabolic Yta546 B/C Ratio 17.6 Ratio 07/08/2018 Comp Metabolic Kkr779 CALCIUM 9.7 mg/dL 07/08/2018 Comp Metabolic Mub447 ALK PHOS 55 U/L 07/08/2018 Comp Metabolic Idw904 AST(SGOT) 15 U/L 07/08/2018 Comp Metabolic Nyw204 ALT(SGPT) 23 U/L 07/08/2018 Comp Metabolic Szn165 BILI T 0.4 mg/dL 07/08/2018 Comp Metabolic Ukm554 ALBUMIN 4.5 g/dL 07/08/2018 Comp Metabolic Osu907 TPRO 6.6 g/dL 07/08/2018 Comp Metabolic Okn428 GLOB 2.1 g/dL 07/08/2018 Comp Metabolic Pmg542 A/G Ratio 2.2 Ratio 07/08/2018 Comp Metabolic Mjn250 Osmo 281 mOsmo 07/08/2018 B12 Uup748 B12 597.00 pg/ml 07/08/2018 Tsh Ord6 TSH (3rd IS) 1.59 uIU/mL 07/08/2018 Comp Metabolic Hjw062 NA 138 mEq/L 09/20/2017 Comp Metabolic Aya475 K 4.1 mEq/L 09/20/2017 Comp Metabolic Wlc033 CL 101 mEq/L 09/20/2017 Comp Metabolic Ibd516 CO2 25.0 mEq/L 09/20/2017 Comp Metabolic Oxt074 ANION GAP 16 09/20/2017 Comp Metabolic Opy244 GLUCOSE 105 mg/dL 09/20/2017 Comp Metabolic Pah111 Creat 0.8 mg/dL 09/20/2017 Comp Metabolic Ccr394 eGFR 86 ml/min/1.73m2 09/20/2017 Comp Metabolic Yxu949 BUN 24 mg/dL 09/20/2017 Comp Metabolic Vmf773 B/C Ratio 31.6 Ratio 09/20/2017 Comp Metabolic Zvh206 CALCIUM 10.0 mg/dL 09/20/2017 Comp Metabolic Iue233 ALK PHOS 63 U/L 09/20/2017 Comp Metabolic Cgx908 AST(SGOT) 28 U/L 09/20/2017 Comp Metabolic Ucx224 ALT(SGPT) 34 U/L 09/20/2017 Comp Metabolic Zul346 BILI T 0.3 mg/dL 09/20/2017 Comp Metabolic Ilo520 ALBUMIN 4.8 g/dL 09/20/2017 Comp Metabolic Zfz823 TPRO 7.2 g/dL 09/20/2017 Comp Metabolic Mkl829 GLOB 2.4 g/dL 09/20/2017 Comp Metabolic Wmy219 A/G Ratio 2.0 Ratio 09/20/2017 Comp Metabolic Nbx864 Osmo 280 mOsmo 09/20/2017 Urine Culture Ucult Preliminary NO Growth Day 1 09/20/2017 Urine Culture Ucult Complete NO Growth Day 2 09/20/2017 Vitamin D 25 Oh Bwt1508 VITAMIN D, 25 HYDROXY 46.43 ng/mL Comp Metabolic Ahs927 NA 143 mEq/L 08/25/2017 Comp Metabolic Vxm938 K 4.1 mEq/L 08/25/2017 Comp Metabolic Pfn535 CL 102 mEq/L 08/25/2017 Comp Metabolic Wrl660 CO2 33.0 mEq/L 08/25/2017 Comp Metabolic Dpo309 ANION GAP 12 08/25/2017 Comp Metabolic Aio879 GLUCOSE 99 mg/dL 08/25/2017 Comp Metabolic Vqb721 Creat 0.8 mg/dL 08/25/2017 Comp Metabolic Nni665 eGFR 86 ml/min/1.73m2 08/25/2017 Comp Metabolic Cjd733 BUN 19 mg/dL 08/25/2017 Comp Metabolic Dcb131 B/C Ratio 25.0 Ratio 08/25/2017 Comp Metabolic Jmm270 CALCIUM 9.5 mg/dL 08/25/2017 Comp Metabolic Hzg658 ALK PHOS 63 U/L 08/25/2017 Comp Metabolic Exw106 AST(SGOT) 17 U/L 08/25/2017 Comp Metabolic Dvb911 ALT(SGPT) 20 U/L 08/25/2017 Comp Metabolic Smw677 BILI T 0.3 mg/dL 08/25/2017 Comp Metabolic Qwm945 ALBUMIN 4.5 g/dL 08/25/2017 Comp Metabolic Yhc628 TPRO 6.6 g/dL 08/25/2017 Comp Metabolic Gkq285 GLOB 2.1 g/dL 08/25/2017 Comp Metabolic Dix865 A/G Ratio 2.1 Ratio 08/25/2017 Comp Metabolic Jwb697 Osmo 287 mOsmo 08/25/2017 B12 Zxa118 B12 904.00 pg/ml 08/25/2017 Tsh Ord6 TSH (3rd IS) 1.60 uIU/mL 08/25/2017 Lipid Ord30 CHOL 198 mg/dL 08/25/2017 Lipid Ord30 HDL 76.0 mg/dl 08/25/2017 Lipid Ord30 TRIG 243 mg/dL 08/25/2017 Lipid Ord30 LDL 73 mg/dL 08/25/2017 Lipid Ord30 C/HDL 2.6 Ratio 08/25/2017 Cbc With Differential Ord2 WBC 7.82 K/ul 08/25/2017 Cbc With Differential Ord2 RBC 3.78 M/ul 08/25/2017 Cbc With Differential Ord2 HGB 12.2 g/dl 08/25/2017 Cbc With Differential Ord2 HCT 39.1 % 08/25/2017 Cbc With Differential Ord2 Neut% 44.4 % 08/25/2017 Cbc With Differential Ord2 Lymph% 46.7 % 08/25/2017 Cbc With Differential Ord2 MCV 103.4 fl 08/25/2017 Cbc With Differential Ord2 [place]% 7.5 % 08/25/2017 Cbc With Differential Ord2 MCH 32.3 pg 08/25/2017 Cbc With Differential Ord2 MCHC 31.2 pg 08/25/2017 Cbc With Differential Ord2 Eos% 1.3 % 08/25/2017 Cbc With Differential Ord2 Baso% 0.1 % 08/25/2017 Cbc With Differential Ord2 PLT 205 K/ul 08/25/2017 Cbc With Differential Ord2 Neut ABS# 3.47 K/ul 08/25/2017 Cbc With Differential Ord2 RDW 13.1 % 08/25/2017 Cbc With Differential Ord2 Lymph ABS# 3.65 K/ul 08/25/2017 Cbc With Differential Ord2 [place] ABS# 0.6 K/ul 08/25/2017 Cbc With Differential Ord2 Eos ABS# 0.1 K/ul 08/25/2017 Cbc With Differential Ord2 Baso ABS# 0.0 K/ul 08/25/2017 Tsh Ord6 hTSH II 1.18 uIU/mL 10/12/2016 Comp Metabolic Bun885 NA 139 mEq/L 10/12/2016 Comp Metabolic Prl342 K 3.5 mEq/L 10/12/2016 Comp Metabolic Icj715 CL 102 mEq/L 10/12/2016 Comp Metabolic Ade480 CO2 25.0 mEq/L 10/12/2016 Comp Metabolic Mrq358 ANION GAP 16 10/12/2016 Comp Metabolic Hwb659 GLUCOSE 84 mg/dL 10/12/2016 Comp Metabolic Smc043 Creat 0.6 mg/dL 10/12/2016 Comp Metabolic Htj081 eGFR 105 ml/min/1.73m2 10/12/2016 Comp Metabolic Ilw227 BUN 12 mg/dL 10/12/2016 Comp Metabolic Nez909 B/C Ratio 18.8 Ratio 10/12/2016 Comp Metabolic Ezz073 CALCIUM 9.2 mg/dL 10/12/2016 Comp Metabolic Rbq600 ALK PHOS 59 U/L 10/12/2016 Comp Metabolic Lvh143 AST(SGOT) 21 U/L 10/12/2016 Comp Metabolic Twz452 ALT(SGPT) 27 U/L 10/12/2016 Comp Metabolic Kat267 BILI T 0.2 mg/dL 10/12/2016 Comp Metabolic Ass492 ALBUMIN 4.4 g/dL 10/12/2016 Comp Metabolic Ffx478 TPRO 6.7 g/dL 10/12/2016 Comp Metabolic Xls606 GLOB 2.3 g/dL 10/12/2016 Comp Metabolic Jqj428 A/G Ratio 1.9 Ratio 10/12/2016 Comp Metabolic Soo445 Osmo 276 mOsmo 10/12/2016 Cbc With Differential [...] 31.9 % 10/12/2016 Cbc With Differential Ord2 [place]% 8.0 % 10/12/2016 Cbc With Differential Ord2 [...] 3.12 K/ul 10/12/2016 Cbc With Differential Ord2 [place] ABS# 0.8 K/ul 10/12/2016 Cbc With Differential Ord2 Eos ABS# 0.1 K/ul 10/12/2016 Cbc With Differential Ord2 Baso ABS# 0.0 K/ul 10/12/2016 Lipid Ord30 CHOL 194 mg/dL 10/12/2016 Lipid Ord30 HDL 76.0 mg/dl 10/12/2016 Lipid Ord30 TRIG 159 mg/dL 10/12/2016 Lipid Ord30 LDL 86 mg/dL 10/12/2016 Lipid Ord30 C/HDL 2.6 Ratio 10/12/2016 Comp Metabolic Jgr217 NA 139 mEq/L 09/11/2016 Comp Metabolic Xvb778 K 3.6 mEq/L 09/11/2016 Comp Metabolic Upi773 CL 102 mEq/L 09/11/2016 Comp Metabolic Vef861 CO2 26.0 mEq/L 09/11/2016 Comp Metabolic Ouo879 ANION GAP 15 09/11/2016 Comp Metabolic Xxq344 GLUCOSE 90 mg/dL 09/11/2016 Comp Metabolic Msz489 Creat 0.6 mg/dL 09/11/2016 Comp Metabolic Qvg237 eGFR 111 ml/min/1.73m2 09/11/2016 Comp Metabolic Huf911 BUN 14 mg/dL 09/11/2016 Comp Metabolic Omr594 B/C Ratio 23.0 Ratio 09/11/2016 Comp Metabolic Xpy169 CALCIUM 9.0 mg/dL 09/11/2016 Comp Metabolic Kfo598 ALK PHOS 56 U/L 09/11/2016 Comp Metabolic Phv990 AST(SGOT) 21 U/L 09/11/2016 Comp Metabolic Vlu885 ALT(SGPT) 17 U/L 09/11/2016 Comp Metabolic Xeq031 BILI T 0.2 mg/dL 09/11/2016 Comp Metabolic Mnm957 ALBUMIN 4.1 g/dL 09/11/2016 Comp Metabolic Iyu380 TPRO 6.5 g/dL 09/11/2016 Comp Metabolic Ije298 GLOB 2.4 g/dL 09/11/2016 Comp Metabolic Mrq275 A/G Ratio 1.7 Ratio 09/11/2016 Comp Metabolic Jfc429 Osmo 278 mOsmo 09/11/2016 Tsh Ord6 hTSH [...] 33.0 pg 09/11/2016 Cbc With Differential Ord2 [place]% 8.6 % 09/11/2016 Cbc With Differential Ord2 Eos% 1.3 % 09/11/2016 Cbc With Differential Ord2 MCHC 32.0 pg 09/11/2016 Cbc With Differential Ord2 Baso% 0.1 % 09/11/2016 Cbc With Differential Ord2 PLT 246 K/ul 09/11/2016 Cbc With Differential Ord2 RDW 13.3 % 09/11/2016 Cbc With Differential Ord2 Neut ABS# 6.66 K/ul 09/11/2016 Cbc With Differential Ord2 Lymph ABS# 3.35 K/ul 09/11/2016 Cbc With Differential Ord2 [place] ABS# 1.0 K/ul 09/11/2016 Cbc With Differential Ord2 Eos ABS# 0.1 K/ul 09/11/2016 Cbc With Differential Ord2 Baso ABS# 0.0 K/ul 09/11/2016 Lipid Ord30 CHOL 168 mg/dL 09/11/2016 Lipid Ord30 HDL 74.0 mg/dl 09/11/2016 Lipid Ord30 TRIG 167 mg/dL 09/11/2016 Lipid Ord30 LDL 61 mg/dL 09/11/2016 Lipid Ord30 C/HDL 2.3 Ratio 09/11/2016 B12 Fax516 B12 474.00 pg/ml 09/11/2016 B12 Xlj523 B12 827.00 pg/ml 03/02/2016 Cbc With Differential Ord2 WBC 5.51 K/ul 02/28/2016 Cbc With Differential Ord2 RBC 3.26 M/ul 02/28/2016 Cbc With Differential Ord2 HGB 11.1 g/dl 02/28/2016 Cbc With Differential Ord2 HCT 35.3 % 02/28/2016 Cbc With Differential Ord2 Neut% 54.9 % 02/28/2016 Cbc With Differential Ord2 Lymph% 37.7 % 02/28/2016 Cbc With Differential Ord2 MCV 108.3 fl 02/28/2016 Cbc With Differential Ord2 [place]% 5.4 % 02/28/2016 Cbc With Differential Ord2 MCH 34.0 pg 02/28/2016 Cbc With Differential Ord2 Eos% 1.8 % 02/28/2016 Cbc With Differential Ord2 MCHC 31.4 pg 02/28/2016 Cbc With Differential Ord2 PLT 198 K/ul 02/28/2016 Cbc With Differential Ord2 Baso% 0.2 % 02/28/2016 Cbc With Differential Ord2 Neut ABS# 3.02 K/ul 02/28/2016 Cbc With Differential Ord2 RDW 12.7 % 02/28/2016 Cbc With Differential Ord2 Lymph ABS# 2.08 K/ul 02/28/2016 Cbc With Differential Ord2 [place] ABS# 0.3 K/ul 02/28/2016 Cbc With Differential Ord2 Eos ABS# 0.1 K/ul 02/28/2016 Cbc With Differential Ord2 Baso ABS# 0.0 K/ul 02/28/2016 Sed Rate Ord21 ESR 5 mm/hr 02/28/2016 C-Reactive Protein Qnt Crqnt CRP 0.1 mg/dl 02/28/2016 Comp Metabolic Vfx993 NA 136 mEq/L 02/28/2016 Comp Metabolic Kpm095 K 4.0 mEq/L 02/28/2016 Comp Metabolic Sdq758 CL 103 mEq/L 02/28/2016 Comp Metabolic Ddm970 CO2 27.0 mEq/L 02/28/2016 Comp Metabolic Why219 ANION GAP 10 02/28/2016 Comp Metabolic Qnx967 GLUCOSE 138 mg/dL 02/28/2016 Comp Metabolic Ikr488 Creat 0.6 mg/dL 02/28/2016 Comp Metabolic Nza554 eGFR 120 ml/min/1.73m2 02/28/2016 Comp Metabolic Voc382 BUN 15 mg/dL 02/28/2016 Comp Metabolic Pjv638 B/C Ratio 26.3 Ratio 02/28/2016 Comp Metabolic Fha417 CALCIUM 8.8 mg/dL 02/28/2016 Comp Metabolic Oym665 ALK PHOS 58 U/L 02/28/2016 Comp Metabolic Ikw004 AST(SGOT) 21 U/L 02/28/2016 Comp Metabolic Iav387 ALT(SGPT) 21 U/L 02/28/2016 Comp Metabolic Cua923 BILI T 0.2 mg/dL 02/28/2016 Comp Metabolic Nvd072 ALBUMIN 3.8 g/dL 02/28/2016 Comp Metabolic Aey804 TPRO 5.7 g/dL 02/28/2016 Comp Metabolic Yzn836 GLOB 1.9 g/dL 02/28/2016 Comp Metabolic Bhj121 A/G Ratio 2.0 Ratio 02/28/2016 Comp Metabolic Wqa719 Osmo 275 mOsmo 02/28/2016 Tsh Ord6 hTSH II 1.25 uIU/mL 02/28/2016 B12 Hmm058 B12 >1500.00 pg/ml 01/11/2016 Vitamin D 25 Oh Osa8318 VITAMIN D, 25 HYDROXY 45.94 ng/mL Comp Metabolic Vxl351 NA 136 mEq/L 03/21/2015 Comp Metabolic Oie403 K 3.8 mEq/L 03/21/2015 Comp Metabolic Pxf745 CL 101 mEq/L 03/21/2015 Comp Metabolic Xnr890 CO2 31.0 mEq/L 03/21/2015 Comp Metabolic Ixb143 ANION GAP 8 03/21/2015 Comp Metabolic Xgi737 GLUCOSE 101 mg/dL 03/21/2015 Comp Metabolic Ixj308 Creat 0.7 mg/dL 03/21/2015 Comp Metabolic Jdr448 eGFR 94 ml/min/1.73m2 03/21/2015 Comp Metabolic Hgk119 BUN 13 mg/dL 03/21/2015 Comp Metabolic Ktt688 B/C Ratio 18.3 Ratio 03/21/2015 Comp Metabolic Aqv217 CALCIUM 9.3 mg/dL 03/21/2015 Comp Metabolic Hni380 ALK PHOS 58 U/L 03/21/2015 Comp Metabolic Idw825 AST(SGOT) 18 U/L 03/21/2015 Comp Metabolic Zhc825 ALT(SGPT) 22 U/L 03/21/2015 Comp Metabolic Tnz613 BILI T 0.3 mg/dL 03/21/2015 Comp Metabolic Jvn291 ALBUMIN 4.4 g/dL 03/21/2015 Comp Metabolic Xsx565 TPRO 6.7 g/dL 03/21/2015 Comp Metabolic Weh636 GLOB 2.3 g/dL 03/21/2015 Comp Metabolic Dsg707 A/G Ratio 1.9 Ratio 03/21/2015 Comp Metabolic Gdi979 Osmo 272 mOsmo 03/21/2015 %Hba1C Cry378 % HbA1c 90154-0 5.4 % 03/21/2015 %Hba1C Yog605 Gluc Ave 108 mg/dL 03/21/2015 Cbc With [...] 1.32 uIU/mL 03/21/2015 URINALYSIS NONAUTO W/O SCOPE 00615 Specific Sims 1.025 DateTime(Free Text in Aprima) URINALYSIS NONAUTO W/O SCOPE 77107 PH 5.0 DateTime(Free Text in Aprima) URINALYSIS NONAUTO W/O SCOPE 92748 GLUCOSE NEG DateTime( Free Text in Aprima) URINALYSIS NONAUTO W/O SCOPE 53203 Protein NEG DateTime( Free Text in Aprima) URINALYSIS NONAUTO W/O SCOPE 40229 Blood NEG DateTime(Free Text in Aprima) URINALYSIS NONAUTO W/O SCOPE 03338 Bilirubin NEG DateTime(Free Text in Aprima) URINALYSIS NONAUTO W/O SCOPE 44087 Ketones NEG DateTime( Free Text in Aprima) URINALYSIS NONAUTO W/O SCOPE 62186 Urobilinogen NEG DateTime(Free Text in Aprima) URINALYSIS NONAUTO W/O SCOPE 63291 Nitrite NEG DateTime( Free Text in Aprima) URINALYSIS NONAUTO W/O SCOPE 44801 Leukocytes NEG DateTime(Free Text in Aprima) Review of Systems System Result Effective Dates Constitutional recent illness 06/16/2018 Eyes No eye discharge 06/16/2018 Eyes No eye erythema 06/16/2018 Ears/Nose/Throat/Neck No dizziness 2018 Ears/Nose/Throat/Neck headache 2018 Ears/Nose/Throat/Neck nasal allergies 03/2019 Ears/Nose/Throat/Neck nasal discharge 03/2019 Ears/Nose/Throat/Neck otalgia 06/16/2018 Ears/Nose/Throat/Neck No sinus congestion 06/16/2018 Ears/Nose/Throat/Neck sore throat 2018 Cardiovascular No chest pain/pressure 03/2019 Respiratory cough 06/16/2018 Gastrointestinal abdominal pain 2018 Gastrointestinal nausea 06/16/2018 Gastrointestinal vomiting 06/16/2018 Genitourinary/Nephrology No dysuria 06/16 Musculoskeletal joint complaint 2018 Dermatologic No rash 06/16/2018 Neurologic No alteration of consciousness 06/16/2018 Psychiatric anxiety 06/16/2018 Psychiatric depression 06/16/2018 Constitutional No recent illness 2017 Constitutional No anorexia 06/01/2018 Constitutional No chills 06/01/2018 Constitutional No diaphoresis 06/01/2018 Constitutional fatigue 06/01/2018 Constitutional No fever 06/01/2018 Constitutional insomnia 06/01/2018 Constitutional malaise 06/01/2018 Eyes No eye discharge 06/01/2018 Eyes No eye erythema 06/01/2018 Ears/Nose/Throat/Neck No dizziness 2017 Cardiovascular No chest pain/pressure Respiratory No cough 06/01/2018 Gastrointestinal constipation 06/01/2018 Gastrointestinal No nausea 06/01/2018 Gastrointestinal No vomiting 06/01/2018 Musculoskeletal stiffness 06/01/2018 Musculoskeletal arthralgia(s) 06/01/2018 Musculoskeletal back pain 06/01/2018 Musculoskeletal bone pain 06/01/2018 Musculoskeletal neck pain 06/01/2018 Dermatologic No rash 06/01/2018 Neurologic No alteration of consciousness 06/01/2018 Psychiatric anxiety 06/01/2018 Psychiatric depression 06/01/2018 Musculoskeletal muscle weakness 2017 Musculoskeletal myalgias 06/01/2018 Genitourinary/Nephrology No urinary urgency 06/01/2018 Constitutional recent illness 04/05/2018 Constitutional No anorexia 04/05/2018 Constitutional No night sweats 2017 Constitutional No chills 04/05/2018 Constitutional No diaphoresis 04/05/2018 Constitutional fatigue 04/05/2018 Constitutional No fever 04/05/2018 Constitutional No insomnia 04/05/2018 Constitutional malaise 04/05/2018 Eyes No eye discharge 04/05/2018 Eyes No eye erythema 04/05/2018 Ears/Nose/Throat/Neck No dizziness 2017 Cardiovascular No chest pain/pressure Respiratory No cough 04/05/2018 Gastrointestinal constipation 04/05/2018 Musculoskeletal stiffness 04/05/2018 Musculoskeletal arthralgia(s) 04/05/2018 Musculoskeletal back pain 04/05/2018 Musculoskeletal bone pain 04/05/2018 Musculoskeletal neck pain 04/05/2018 Dermatologic No rash 04/05/2018 Neurologic No alteration of consciousness 04/05/2018 Psychiatric anxiety 04/05/2018 Psychiatric depression 04/05/2018 Gastrointestinal No nausea 04/05/2018 Gastrointestinal No vomiting 04/05/2018 Constitutional No recent illness 2017 Constitutional No anorexia 03/10/2018 Constitutional No night sweats 2017 Constitutional No chills 03/10/2018 Constitutional No diaphoresis 03/10/2018 Constitutional No fatigue 03/10/2018 Constitutional No fever 03/10/2018 Constitutional No insomnia 03/10/2018 Constitutional No malaise 03/10/2018 Constitutional No weight loss 03/10/2018 Constitutional No weight gain 03/10/2018 Eyes No eye discharge 03/10/2018 Eyes No eye erythema 03/10/2018 Ears/Nose/Throat/Neck headache 2017 Cardiovascular No chest pain/pressure 09/2017 Respiratory No cough 03/10/2018 Gastrointestinal No nausea 03/10/2018 Gastrointestinal No vomiting 03/10/2018 Genitourinary/Nephrology No dysuria 03/10 Neurologic No alteration of consciousness 03/10/2018 Ears/Nose/Throat/Neck No dizziness 2017 Musculoskeletal arthralgia(s) 03/10/2018 Musculoskeletal neck pain 03/10/2018 Dermatologic No rash 03/10/2018 Dermatologic No sores 03/10/2018 Psychiatric anxiety 03/10/2018 Psychiatric depression 03/10/2018 Constitutional recent illness 01/13/2018 Constitutional No anorexia 01/13/2018 Constitutional No night sweats 2017 Constitutional No chills 01/13/2018 Constitutional No diaphoresis 01/13/2018 Constitutional No fatigue 01/13/2018 Constitutional No fever 01/13/2018 Constitutional No insomnia 01/13/2018 Constitutional No malaise 01/13/2018 Constitutional No weight loss 01/13/2018 Constitutional No weight gain 01/13/2018 Eyes No eye discharge 01/13/2018 Eyes No eye erythema 01/13/2018 Eyes vision change 01/13/2018 Ears/Nose/Throat/Neck No dizziness 2017 Ears/Nose/Throat/Neck headache 2017 Cardiovascular No chest pain/pressure 02/2018 Cardiovascular No edema 01/13/2018 Respiratory No productive sputum 2017 Respiratory No cough 01/13/2018 Respiratory dyspnea on exertion 2017 Gastrointestinal abdominal pain 2017 Gastrointestinal constipation 01/13/2018 Gastrointestinal diarrhea 01/13/2018 Genitourinary/Nephrology No dysuria 01/13 Musculoskeletal muscle weakness 2017 Musculoskeletal neck pain 01/13/2018 Musculoskeletal shoulder pain 01/13/2018 Dermatologic No rash 01/13/2018 Dermatologic No sores 01/13/2018 Neurologic No alteration of consciousness 01/13/2018 Neurologic No syncope 01/13/2018 Psychiatric No alcohol abuse 01/13/2018 Psychiatric anxiety 01/13/2018 Psychiatric depression 01/13/2018 Psychiatric No drug abuse 01/13/2018 Psychiatric No hallucination 01/13/2018 Psychiatric No psychosis 01/13/2018 Psychiatric No suicidality 01/13/2018 Endocrine No dry or coarse skin 2017 Hematologic/Lymphatic No abnormal ecchymoses 01/13/2018 Constitutional recent illness 11/25/2017 Constitutional No anorexia 11/25/2017 Constitutional No night sweats 2017 Constitutional No chills 11/25/2017 Constitutional No diaphoresis 11/25/2017 Constitutional No fatigue 11/25/2017 Constitutional No fever 11/25/2017 Constitutional No insomnia 11/25/2017 Constitutional No malaise 11/25/2017 Constitutional No weight loss 11/25/2017 Constitutional No weight gain 11/25/2017 Eyes No eye discharge 11/25/2017 Eyes No eye erythema 11/25/2017 Eyes vision change 11/25/2017 Ears/Nose/Throat/Neck No dizziness 2017 Ears/Nose/Throat/Neck headache 2017 Cardiovascular No chest pain/pressure Respiratory No cough 11/25/2017 Gastrointestinal constipation 11/25/2017 Gastrointestinal diarrhea 11/25/2017 Genitourinary/Nephrology No dysuria 11/25 Dermatologic No rash 11/25/2017 Dermatologic No sores 11/25/2017 Neurologic No alteration of consciousness 11/25/2017 Psychiatric anxiety 11/25/2017 Psychiatric depression 11/25/2017 Endocrine No dry or coarse skin 2017 Hematologic/Lymphatic No abnormal ecchymoses 11/25/2017 Gastrointestinal abdominal pain 2017 Cardiovascular No edema 11/25/2017 Respiratory No productive sputum 2017 Respiratory dyspnea on exertion 2017 Musculoskeletal neck pain 11/25/2017 Neurologic No syncope 11/25/2017 Psychiatric No psychosis 11/25/2017 Psychiatric No suicidality 11/25/2017 Psychiatric No hallucination 11/25/2017 Musculoskeletal muscle weakness 2017 Musculoskeletal shoulder pain 11/25/2017 Psychiatric No drug abuse 11/25/2017 Psychiatric No alcohol abuse 11/25/2017 Constitutional No recent illness 2017 Constitutional No anorexia 10/19/2017 Constitutional No diaphoresis 10/19/2017 Constitutional No chills 10/19/2017 Constitutional No night sweats 2017 Constitutional fatigue 10/19/2017 Constitutional No fever 10/19/2017 Constitutional No insomnia 10/19/2017 Constitutional No malaise 10/19/2017 Constitutional No weight loss 10/19/2017 Constitutional No weight gain 10/19/2017 Dermatologic rash 10/19/2017 Constitutional recent illness 09/17/2017 Constitutional No anorexia 09/17/2017 Constitutional No night sweats 2017 Constitutional No chills 09/17/2017 Constitutional No diaphoresis 09/17/2017 Constitutional fatigue 09/17/2017 Constitutional No fever 09/17/2017 Constitutional No insomnia 09/17/2017 Constitutional malaise 09/17/2017 Eyes No eye discharge 09/17/2017 Eyes No eye erythema 09/17/2017 Ears/Nose/Throat/Neck No dizziness 2017 Cardiovascular No chest pain/pressure Respiratory No cough 09/17/2017 Gastrointestinal constipation 09/17/2017 Musculoskeletal stiffness 09/17/2017 Musculoskeletal arthralgia(s) 09/17/2017 Musculoskeletal back pain 09/17/2017 Musculoskeletal bone pain 09/17/2017 Musculoskeletal joint complaint 2017 Musculoskeletal neck pain 09/17/2017 Dermatologic No rash 09/17/2017 Neurologic No alteration of consciousness 09/17/2017 Psychiatric anxiety 09/17/2017 Psychiatric depression 09/17/2017 Gastrointestinal abdominal pain 2017 Gastrointestinal gas and bloating 2017 Genitourinary/Nephrology dysuria 2017 Constitutional recent illness 09/06/2017 Constitutional No anorexia 09/06/2017 Constitutional No night sweats 2017 Constitutional No chills 09/06/2017 Constitutional No diaphoresis 09/06/2017 Constitutional fatigue 09/06/2017 Constitutional No fever 09/06/2017 Constitutional No insomnia 09/06/2017 Constitutional malaise 09/06/2017 Eyes No eye discharge 09/06/2017 Eyes No eye erythema 09/06/2017 Ears/Nose/Throat/Neck No dizziness 2017 Cardiovascular No chest pain/pressure 07/2017 Respiratory No cough 09/06/2017 Gastrointestinal constipation 09/06/2017 Musculoskeletal stiffness 09/06/2017 Musculoskeletal arthralgia(s) 09/06/2017 Musculoskeletal back pain 09/06/2017 Musculoskeletal bone pain 09/06/2017 Musculoskeletal joint complaint 2017 Musculoskeletal neck pain 09/06/2017 Dermatologic No rash 09/06/2017 Neurologic No alteration of consciousness 09/06/2017 Psychiatric anxiety 09/06/2017 Psychiatric depression 09/06/2017 Constitutional recent illness 08/19/2017 Gastrointestinal abdominal pain 2017 Gastrointestinal No diarrhea 08/19/2017 Gastrointestinal No constipation 2017 Constitutional No anorexia 08/19/2017 Constitutional No night sweats 2017 Constitutional No chills 08/19/2017 Constitutional No diaphoresis 08/19/2017 Constitutional No fatigue 08/19/2017 Constitutional No fever 08/19/2017 Constitutional No insomnia 08/19/2017 Constitutional No malaise 08/19/2017 Constitutional No weight loss 08/19/2017 Constitutional No weight gain 08/19/2017 Eyes No eye erythema 08/19/2017 Eyes No eye discharge 08/19/2017 Eyes vision change 08/19/2017 Ears/Nose/Throat/Neck dizziness 2017 Ears/Nose/Throat/Neck headache 2017 Cardiovascular No chest pain/pressure Respiratory No cough 08/19/2017 Genitourinary/Nephrology No dysuria 08/19 Musculoskeletal No joint complaint 2017 Dermatologic No rash 08/19/2017 Dermatologic No sores 08/19/2017 Neurologic No alteration of consciousness 08/19/2017 Psychiatric anxiety 08/19/2017 Psychiatric depression 08/19/2017 Endocrine No dry or coarse skin 2017 Hematologic/Lymphatic No abnormal ecchymoses 08/19/2017 Constitutional recent illness 07/06/2017 Constitutional No anorexia [...] 1994 Constitutional general appearance Development: well developed 06/16/2018 None Full Exam - General 1994 Constitutional general appearance Development: appears stated age 0106/16/2018 None Full Exam - General 1994 Constitutional general appearance Hygiene/Attention to Grooming: good hygiene 06/16/2018 None Full Exam - General 1994 Eyes conjunctiva /eyelids Overall: conjunctiva clear 06/16/2018 None Full Exam - General 1994 Eyes conjunctiva /eyelids Overall: cornea clear 06/16/2018 None Full Exam - General 1994 Eyes conjunctiva /eyelids Overall: eyelids normal 06/16/2018 None Full Exam - General 1994 Eyes pupils and irises Overall: pupils equal, round, reactive to light and accomodation 06/16/2018 None Full Exam - General 1994 Ears/Nose/Throat lips/teeth/gingiva Overall: benign lips 06/16/2018 None Full Exam - General 1994 Ears/Nose/Throat lips/teeth/gingiva Overall: normal dentition 06/16/2018 None Full Exam - General 1994 Ears/Nose/Throat oral cavity/pharynx/larynx Overall: oral mucosa clear 06/16/2018 None Full Exam - General 1994 Respiratory auscultation Overall: breath sounds clear bilaterally 06/16/2018 None Full Exam - General 1994 Respiratory respiratory effort/rhythm Overall: no retractions 06/16/2018 None Full Exam - General 1994 Respiratory respiratory effort/rhythm Overall: normal rate 06/16/2018 None Full Exam - General 1994 Cardiovascular extremities Overall: no clubbing 06/16/2018 None Full Exam - General 1994 Cardiovascular auscultation of heart Overall: regular rate 06/16/2018 None Full Exam - General 1994 Cardiovascular auscultation of heart Overall: normal heart sounds 06/16/2018 None Full Exam - General 1994 Abdomen abdominal exam Overall: no tenderness 06/16/2018 None Full Exam - General 1994 Lymphatic neck nodes Overall: anterior cervical chain benign 06/16/2018 None Full Exam - General 1994 Lymphatic neck nodes Overall: posterior cervical chain benign 06/16/2018 None Full Exam - General 1994 Psychiatric orientation/consciousness Overall: oriented to person, place and time 06/16/2018 None Full Exam - General 1994 Psychiatric mood and affect Mood: depressed 06/16/2018 None Full Exam - General 1994 Psychiatric mood and affect Mood: irritable 06/16/2018 None Full Exam - General 1994 Psychiatric mood and affect Affect: mood congruent 06/16/2018 None Full Exam - General 1994 Constitutional general appearance Development: well developed 06/01/2018 None Full Exam - General 1994 Constitutional general appearance Development: appears stated age 1206/01/2018 None Full Exam - General 1994 Constitutional general appearance Hygiene/Attention to Grooming: good hygiene 06/01/2018 None Full Exam - General 1994 Eyes conjunctiva /eyelids Overall: conjunctiva clear 06/01/2018 None Full Exam - General 1994 Eyes conjunctiva /eyelids Overall: cornea clear 06/01/2018 None Full Exam - General 1994 Eyes conjunctiva /eyelids Overall: eyelids normal 06/01/2018 None Full Exam - General 1994 Eyes pupils and irises Overall: pupils equal, round, reactive to light and accomodation 06/01/2018 None Full Exam - General 1994 Ears/Nose/Throat lips/teeth/gingiva Overall: benign lips 06/01/2018 None Full Exam - General 1994 Ears/Nose/Throat lips/teeth/gingiva Overall: normal dentition 06/01/2018 None Full Exam - General 1994 Ears/Nose/Throat oral cavity/pharynx/larynx Overall: oral mucosa clear 06/01/2018 None Full Exam - General 1994 Respiratory auscultation Overall: breath sounds clear bilaterally 06/01/2018 None Full Exam - General 1994 Respiratory respiratory effort/rhythm Overall: no retractions 06/01/2018 None Full Exam - General 1994 Respiratory respiratory effort/rhythm Overall: normal rate 06/01/2018 None Full Exam - General 1994 Cardiovascular extremities Overall: no clubbing 06/01/2018 None Full Exam - General 1994 Cardiovascular auscultation of heart Overall: regular rate 06/01/2018 None Full Exam - General 1994 Cardiovascular auscultation of heart Overall: normal heart sounds 06/01/2018 None Full Exam - General 1994 Lymphatic neck nodes Overall: anterior cervical chain benign 06/01/2018 None Full Exam - General 1994 Lymphatic neck nodes Overall: posterior cervical chain benign 06/01/2018 None Full Exam - General 1994 Psychiatric orientation/consciousness Overall: oriented to person, place and time 06/01/2018 None Full Exam - General 1994 Psychiatric mood and affect Mood: depressed 06/01/2018 None Full Exam - General 1994 Psychiatric mood and affect Mood: irritable 06/01/2018 None Full Exam - General 1994 Psychiatric mood and affect Mood: angry 06/01/2018 None Full Exam - General 1994 Psychiatric mood and affect Affect: mood congruent 06/01/2018 None Full Exam - General 1994 Abdomen abdominal exam Overall: no tenderness 06/01/2018 None Full Exam - General 1994 Constitutional general appearance Development: well developed 04/05/2018 None Full Exam - General 1994 Constitutional general appearance Development: appears stated age 1004/05/2018 None Full Exam - General 1994 Constitutional general appearance Hygiene/Attention to Grooming: good hygiene 04/05/2018 None Full Exam - General 1994 Eyes conjunctiva /eyelids Overall: conjunctiva clear 04/05/2018 None Full Exam - General 1994 Eyes conjunctiva /eyelids Overall: cornea clear 04/05/2018 None Full Exam - General 1994 Eyes conjunctiva /eyelids Overall: eyelids normal 04/05/2018 None Full Exam - General 1994 Eyes pupils and irises Overall: pupils equal, round, reactive to light and accomodation 04/05/2018 None Full Exam - General 1994 Ears/Nose/Throat lips/teeth/gingiva Overall: benign lips 04/05/2018 None Full Exam - General 1994 Ears/Nose/Throat lips/teeth/gingiva Overall: normal dentition 04/05/2018 None Full Exam - General 1994 Ears/Nose/Throat oral cavity/pharynx/larynx Overall: oral mucosa clear 04/05/2018 None Full Exam - General 1994 Respiratory auscultation Overall: breath sounds clear bilaterally 04/05/2018 None Full Exam - General 1994 Respiratory respiratory effort/rhythm Overall: no retractions 04/05/2018 None Full Exam - General 1994 Respiratory respiratory effort/rhythm Overall: normal rate 04/05/2018 None Full Exam - General 1994 Cardiovascular extremities Overall: no clubbing 04/05/2018 None Full Exam - General 1994 Cardiovascular auscultation of heart Overall: regular rate 04/05/2018 None Full Exam - General 1994 Cardiovascular auscultation of heart Overall: normal heart sounds 04/05/2018 None Full Exam - General 1994 Psychiatric orientation/consciousness Overall: oriented to person, place and time 04/05/2018 None Full Exam - General 1994 Psychiatric mood and affect Mood: depressed 04/05/2018 None Full Exam - General 1994 Psychiatric mood and affect Mood: irritable 04/05/2018 None Full Exam - General 1994 Psychiatric mood and affect Mood: angry 04/05/2018 None Full Exam - General 1994 Psychiatric mood and affect Affect: mood congruent 04/05/2018 None Full Exam - General 1994 Abdomen abdominal exam Overall: no tenderness 04/05/2018 None Full Exam - General 1994 Abdomen abdominal exam Overall: normal bowel sounds 04/05/2018 None Full Exam - General 1994 Lymphatic neck nodes Overall: anterior cervical chain benign 04/05/2018 None Full Exam - General 1994 Lymphatic neck nodes Overall: posterior cervical chain benign 04/05/2018 None Full Exam - General 1994 Constitutional general appearance Development: well developed 03/10/2018 None Full Exam - General 1994 Constitutional general appearance Development: appears stated age 1003/10/2018 None Full Exam - General 1994 Constitutional general appearance Hygiene/Attention to Grooming: good hygiene 03/10/2018 None Full Exam - General 1994 Eyes conjunctiva /eyelids Overall: conjunctiva clear 03/10/2018 None Full Exam - General 1994 Eyes conjunctiva /eyelids Overall: cornea clear 03/10/2018 None Full Exam - General 1994 Eyes conjunctiva /eyelids Overall: eyelids normal 03/10/2018 None Full Exam - General 1994 Eyes pupils and irises Overall: pupils equal, round, reactive to light and accomodation 03/10/2018 None Full Exam - General 1994 Ears/Nose/Throat lips/teeth/gingiva Overall: benign lips 03/10/2018 None Full Exam - General 1994 Ears/Nose/Throat lips/teeth/gingiva Overall: normal dentition 03/10/2018 None Full Exam - General 1994 Ears/Nose/Throat oral cavity/pharynx/larynx Overall: oral mucosa clear 03/10/2018 None Full Exam - General 1994 Respiratory auscultation Overall: breath sounds clear bilaterally 03/10/2018 None Full Exam - General 1994 Respiratory respiratory effort/rhythm Overall: no retractions 03/10/2018 None Full Exam - General 1994 Respiratory respiratory effort/rhythm Overall: normal rate 03/10/2018 None Full Exam - General 1994 Cardiovascular extremities Overall: no clubbing 03/10/2018 None Full Exam - General 1994 Cardiovascular auscultation of heart Overall: regular rate 03/10/2018 None Full Exam - General 1994 Cardiovascular auscultation of heart Overall: normal heart sounds 03/10/2018 None Full Exam - General 1994 Psychiatric orientation/consciousness Overall: oriented to person, place and time 03/10/2018 None Full Exam - General 1994 Psychiatric mood and affect Mood: depressed 03/10/2018 None Full Exam - General 1994 Psychiatric mood and affect Affect: mood congruent 03/10/2018 None Full Exam - General 1994 Constitutional general appearance Assistive Device: crutches 03/10/2018 None Full Exam - General 1994 Constitutional general appearance Development: well developed 01/13/2018 None Full Exam - General 1994 Constitutional general appearance Development: appears stated age 0801/13/2018 None Full Exam - General 1994 Constitutional general appearance Hygiene/Attention to Grooming: good hygiene 01/13/2018 None Full Exam - General 1994 Eyes conjunctiva /eyelids Overall: conjunctiva clear 01/13/2018 None Full Exam - General 1994 Eyes conjunctiva /eyelids Overall: cornea clear 01/13/2018 None Full Exam - General 1994 Eyes conjunctiva /eyelids Overall: eyelids normal 01/13/2018 None Full Exam - General 1994 Eyes pupils and irises Overall: pupils equal, round, reactive to light and accomodation 01/13/2018 None Full Exam - General 1994 Ears/Nose/Throat lips/teeth/gingiva Overall: benign lips 01/13/2018 None Full Exam - General 1994 Ears/Nose/Throat lips/teeth/gingiva Overall: normal dentition 01/13/2018 None Full Exam - General 1994 Ears/Nose/Throat oral cavity/pharynx/larynx Overall: oral mucosa clear 01/13/2018 None Full Exam - General 1994 Respiratory auscultation Overall: breath sounds clear bilaterally 01/13/2018 None Full Exam - General 1994 Respiratory respiratory effort/rhythm Overall: no retractions 01/13/2018 None Full Exam - General 1994 Respiratory respiratory effort/rhythm Overall: normal rate 01/13/2018 None Full Exam - General 1994 Cardiovascular extremities Overall: no clubbing 01/13/2018 None Full Exam - General 1994 Cardiovascular auscultation of heart Overall: regular rate 01/13/2018 None Full Exam - General 1994 Cardiovascular auscultation of heart Overall: normal heart sounds 01/13/2018 None Full Exam - General 1994 Abdomen abdominal exam Overall: normal bowel sounds 01/13/2018 None Full Exam - General 1994 Abdomen abdominal exam Contour: rounded 01/13/2018 None Full Exam - General 1994 Musculoskeletal head and neck Overall: head atraumatic 01/13/2018 None Full Exam - General 1994 Integument inspection of skin Overall: few scattered moles, no gross abnormalities 01/13/2018 None Full Exam - General 1994 Neurologic cranial nerves Overall: crainial nerves 2 - 12 grossly intact 01/13/2018 None Full Exam - General 1994 Psychiatric orientation/consciousness Overall: oriented to person, place and time 01/13/2018 None Full Exam - General 1994 Constitutional general appearance Development: well developed 11/25/2017 None Full Exam - General 1994 Constitutional general appearance Development: appears stated age 0611/25/2017 None Full Exam - General 1994 Constitutional general appearance Hygiene/Attention to Grooming: good hygiene 11/25/2017 None Full Exam - General 1994 Eyes conjunctiva /eyelids Overall: conjunctiva clear 11/25/2017 None Full Exam - General 1994 Eyes conjunctiva /eyelids Overall: cornea clear 11/25/2017 None Full Exam - General 1994 Eyes conjunctiva /eyelids Overall: eyelids normal 11/25/2017 None Full Exam - General 1994 Eyes pupils and irises Overall: pupils equal, round, reactive to light and accomodation 11/25/2017 None Full Exam - General 1994 Ears/Nose/Throat lips/teeth/gingiva Overall: benign lips 11/25/2017 None Full Exam - General 1994 Ears/Nose/Throat lips/teeth/gingiva Overall: normal dentition 11/25/2017 None Full Exam - General 1994 Ears/Nose/Throat oral cavity/pharynx/larynx Overall: oral mucosa clear 11/25/2017 None Full Exam - General 1994 Respiratory auscultation Overall: breath sounds clear bilaterally 11/25/2017 None Full Exam - General 1994 Respiratory respiratory effort/rhythm Overall: no retractions 11/25/2017 None Full Exam - General 1994 Respiratory respiratory effort/rhythm Overall: normal rate 11/25/2017 None Full Exam - General 1994 Cardiovascular extremities Overall: no clubbing 11/25/2017 None Full Exam - General 1994 Cardiovascular auscultation of heart Overall: regular rate 11/25/2017 None Full Exam - General 1994 Cardiovascular auscultation of heart Overall: normal heart sounds 11/25/2017 None Full Exam - General 1994 Psychiatric orientation/consciousness Overall: oriented to person, place and time 11/25/2017 None Full Exam - General 1994 Abdomen abdominal exam Contour: rounded 11/25/2017 None Full Exam - General 1994 Abdomen abdominal exam Overall: normal bowel sounds 11/25/2017 None Full Exam - General 1994 Integument inspection of skin Overall: few scattered moles, no gross abnormalities 11/25/2017 None Full Exam - General 1994 Neurologic cranial nerves Overall: crainial nerves 2 - 12 grossly intact 11/25/2017 None Full Exam - General 1994 Musculoskeletal head and neck Overall: head atraumatic 11/25/2017 None Full Exam - General 1994 Constitutional general appearance Development: well developed 10/19/2017 None Full Exam - General 1994 Constitutional general appearance Development: appears stated age 0510/19/2017 None Full Exam - General 1994 Constitutional general appearance Hygiene/Attention to Grooming: good hygiene 10/19/2017 None Full Exam - General 1994 Eyes conjunctiva /eyelids Overall: conjunctiva clear 10/19/2017 None Full Exam - General 1994 Eyes conjunctiva /eyelids Overall: cornea clear 10/19/2017 None Full Exam - General 1994 Eyes conjunctiva /eyelids Overall: eyelids normal 10/19/2017 None Full Exam - General 1994 Eyes pupils and irises Overall: pupils equal, round, reactive to light and accomodation 10/19/2017 None Full Exam - General 1994 Ears/Nose/Throat lips/teeth/gingiva Overall: benign lips 10/19/2017 None Full Exam - General 1994 Ears/Nose/Throat lips/teeth/gingiva Overall: normal dentition 10/19/2017 None Full Exam - General 1994 Ears/Nose/Throat oral cavity/pharynx/larynx Overall: oral mucosa clear 10/19/2017 None Full Exam - General 1994 Respiratory auscultation Overall: breath sounds clear bilaterally 10/19/2017 None Full Exam - General 1994 Respiratory respiratory effort/rhythm Overall: no retractions 10/19/2017 None Full Exam - General 1994 Respiratory respiratory effort/rhythm Overall: normal rate 10/19/2017 None Full Exam - General 1994 Cardiovascular extremities Overall: no clubbing 10/19/2017 None Full Exam - General 1994 Cardiovascular auscultation of heart Overall: regular rate 10/19/2017 None Full Exam - General 1994 Cardiovascular auscultation of heart Overall: normal heart sounds 10/19/2017 None Full Exam - General 1994 Abdomen abdominal exam Overall: no tenderness 10/19/2017 None Full Exam - General 1994 Abdomen abdominal exam Overall: normal bowel sounds 10/19/2017 None Full Exam - General 1994 Psychiatric orientation/consciousness Overall: oriented to person, place and time 10/19/2017 None Full Exam - General 1994 Psychiatric mood and affect Affect: mood congruent 10/19/2017 None Full Exam - General 1994 Integument inspection of skin Location: right arm 10/19/2017 None Full Exam - General 1994 Integument inspection of skin Dermatitis: excoriation 10/19/2017 None Full Exam - General 1994 Constitutional general appearance Development: well developed 09/17/2017 None Full Exam - General 1994 Constitutional general appearance Development: appears stated age 0409/17/2017 None Full Exam - General 1994 Constitutional general appearance Hygiene/Attention to Grooming: good hygiene 09/17/2017 None Full Exam - General 1994 Eyes conjunctiva /eyelids Overall: conjunctiva clear 09/17/2017 None Full Exam - General 1994 Eyes conjunctiva /eyelids Overall: cornea clear 09/17/2017 None Full Exam - General 1994 Eyes conjunctiva /eyelids Overall: eyelids normal 09/17/2017 None Full Exam - General 1994 Eyes pupils and irises Overall: pupils equal, round, reactive to light and accomodation 09/17/2017 None Full Exam - General 1994 Ears/Nose/Throat lips/teeth/gingiva Overall: benign lips 09/17/2017 None Full Exam - General 1994 Ears/Nose/Throat lips/teeth/gingiva Overall: normal dentition 09/17/2017 None Full Exam - General 1994 Ears/Nose/Throat oral cavity/pharynx/larynx Overall: oral mucosa clear 09/17/2017 None Full Exam - General 1994 Respiratory auscultation Overall: breath sounds clear bilaterally 09/17/2017 None Full Exam - General 1994 Respiratory respiratory effort/rhythm Overall: no retractions 09/17/2017 None Full Exam - General 1994 Respiratory respiratory effort/rhythm Overall: normal rate 09/17/2017 None Full Exam - General 1994 Cardiovascular extremities Overall: no clubbing 09/17/2017 None Full Exam - General 1994 Cardiovascular auscultation of heart Overall: regular rate 09/17/2017 None Full Exam - General 1994 Cardiovascular auscultation of heart Overall: normal heart sounds 09/17/2017 None Full Exam - General 1994 Abdomen abdominal exam Overall: no tenderness 09/17/2017 None Full Exam - General 1994 Abdomen abdominal exam Overall: normal bowel sounds 09/17/2017 None Full Exam - General 1994 Psychiatric orientation/consciousness Overall: oriented to person, place and time 09/17/2017 None Full Exam - General 1994 Psychiatric mood and affect Mood: depressed 09/17/2017 None Full Exam - General 1994 Psychiatric mood and affect Mood: irritable 09/17/2017 None Full Exam - General 1994 Psychiatric mood and affect Affect: mood congruent 09/17/2017 None Full Exam - General 1994 Integument inspection of skin Overall: few scattered moles, no gross abnormalities 09/17/2017 None Full Exam - General 1994 Constitutional general appearance Development: well developed 09/06/2017 None Full Exam - General 1994 Constitutional general appearance Development: appears stated age 0409/06/2017 None Full Exam - General 1994 Constitutional general appearance Hygiene/Attention to Grooming: good hygiene 09/06/2017 None Full Exam - General 1994 Eyes conjunctiva /eyelids Overall: conjunctiva clear 09/06/2017 None Full Exam - General 1994 Eyes conjunctiva /eyelids Overall: cornea clear 09/06/2017 None Full Exam - General 1994 Eyes conjunctiva /eyelids Overall: eyelids normal 09/06/2017 None Full Exam - General 1994 Eyes pupils and irises Overall: pupils equal, round, reactive to light and accomodation 09/06/2017 None Full Exam - General 1994 Ears/Nose/Throat lips/teeth/gingiva Overall: benign lips 09/06/2017 None Full Exam - General 1994 Ears/Nose/Throat lips/teeth/gingiva Overall: normal dentition 09/06/2017 None Full Exam - General 1994 Ears/Nose/Throat oral cavity/pharynx/larynx Overall: oral mucosa clear 09/06/2017 None Full Exam - General 1994 Respiratory auscultation Overall: breath sounds clear bilaterally 09/06/2017 None Full Exam - General 1994 Respiratory respiratory effort/rhythm Overall: no retractions 09/06/2017 None Full Exam - General 1994 Respiratory respiratory effort/rhythm Overall: normal rate 09/06/2017 None Full Exam - General 1994 Cardiovascular extremities Overall: no clubbing 09/06/2017 None Full Exam - General 1994 Cardiovascular auscultation of heart Overall: regular rate 09/06/2017 None Full Exam - General 1994 Cardiovascular auscultation of heart Overall: normal heart sounds 09/06/2017 None Full Exam - General 1994 Psychiatric orientation/consciousness Overall: oriented to person, place and time 09/06/2017 None Full Exam - General 1994 Psychiatric mood and affect Mood: depressed 09/06/2017 None Full Exam - General 1994 Psychiatric mood and affect Mood: irritable 09/06/2017 None Full Exam - General 1994 Psychiatric mood and affect Mood: angry 09/06/2017 None Full Exam - General 1994 Psychiatric mood and affect Affect: mood congruent 09/06/2017 None Full Exam - General 1994 Abdomen abdominal exam Overall: no tenderness 09/06/2017 None Full Exam - General 1994 Abdomen abdominal exam Overall: normal bowel sounds 09/06/2017 None Full Exam - General 1994 Constitutional general appearance Development: well developed 08/19/2017 None Full Exam - General 1994 Constitutional general appearance Development: appears stated age 0308/19/2017 None Full Exam - General 1994 Constitutional general appearance Hygiene/Attention to Grooming: good hygiene 08/19/2017 None Full Exam - General 1994 Eyes conjunctiva /eyelids Overall: conjunctiva clear 08/19/2017 None Full Exam - General 1994 Eyes conjunctiva /eyelids Overall: cornea clear 08/19/2017 None Full Exam - General 1994 Eyes conjunctiva /eyelids Overall: eyelids normal 08/19/2017 None Full Exam - General 1994 Eyes pupils and irises Overall: pupils equal, round, reactive to light and accomodation 08/19/2017 None Full Exam - General 1994 Ears/Nose/Throat lips/teeth/gingiva Overall: benign lips 08/19/2017 None Full Exam - General 1994 Ears/Nose/Throat lips/teeth/gingiva Overall: normal dentition 08/19/2017 None Full Exam - General 1994 Ears/Nose/Throat oral cavity/pharynx/larynx Overall: oral mucosa clear 08/19/2017 None Full Exam - General 1994 Respiratory auscultation Overall: breath sounds clear bilaterally 08/19/2017 None Full Exam - General 1994 Respiratory respiratory effort/rhythm Overall: no retractions 08/19/2017 None Full Exam - General 1994 Respiratory respiratory effort/rhythm Overall: normal rate 08/19/2017 None Full Exam - General 1994 Cardiovascular extremities Overall: no clubbing 08/19/2017 None Full Exam - General 1994 Cardiovascular auscultation of heart Overall: regular rate 08/19/2017 None Full Exam - General 1994 Cardiovascular auscultation of heart Overall: normal heart sounds 08/19/2017 None Full Exam - General 1994 Psychiatric orientation/consciousness Overall: oriented to person, place and time 08/19/2017 None Full Exam - General 1994 Psychiatric mood and affect Mood: depressed 08/19/2017 None Full Exam - General 1994 Psychiatric mood and affect Affect: mood congruent 08/19/2017 None Full Exam - General 1994 Constitutional [...] exam 07/21/2012 None Full Exam - General 1995 Respiratory auscultation Lower lung field: crackles 07/21/2012 None Full Exam - General 1995 Ears/Nose/Throat otoscopic exam Overall: external auditory canals clear 07/21/2012 None Full Exam - General 1995 Ears/Nose/Throat otoscopic exam Overall: tympanic membranes clear 07/21/2012 None Full Exam - General 1995 Eyes conjunctiva /eyelids Overall: conjunctiva clear 07/21/2012 [...] benign 06/22/2011 None Full Exam - General 1995 [...] nourished 06/11/2011 None Full Exam - General 1995 Constitutional general appearance Overall: well developed 06/11/2011 [...] shoulder 03/11/2011 None Full Exam - General 1995 Musculoskeletal upper extremity Overall: normal elbow 03/11/2011 None Full Exam - General 1995 Musculoskeletal upper extremity Overall: normal wrist 03/11/2011 [...] appearance 01/29/2011 None Procedures Procedure Codes Date URINALYSIS NONAUTO W/O SCOPE CPT-4: 41646 07/08/2018 THER/PROPH/DIAG INJ SC/IM CPT-4: 37257 04/05/2018 VITAMIN B12 INJECTION CPT-4: J3420 04/05/2018 THER/PROPH/DIAG INJ SC/IM CPT-4: 85503 03/10/2018 VITAMIN B12 INJECTION CPT-4: J3420 03/10/2018 THER/PROPH/DIAG INJ SC/IM CPT-4: 93340 10/19/2017 VITAMIN B12 INJECTION CPT-4: J3420 10/19/2017 URINALYSIS NONAUTO W/O SCOPE CPT-4: 44521 09/17/2017 THER/PROPH/DIAG INJ SC/IM CPT-4: 73588 08/19/2017 VITAMIN B12 INJECTION CPT-4: J3420 08/19/2017 THER/PROPH/DIAG INJ SC/IM CPT-4: 49455 07/06/2017 VITAMIN B12 INJECTION CPT-4: J3420 07/06/2017 THER/PROPH/DIAG INJ SC/IM CPT-4: 70653 04/27/2017 VITAMIN B12 INJECTION CPT-4: J3420 04/27/2017 THER/PROPH/DIAG INJ SC/IM CPT-4: 72424 11/17/2016 VITAMIN B12 INJECTION CPT-4: J3420 11/17/2016 THER/PROPH/DIAG INJ SC/IM CPT-4: 84469 10/12/2016 VITAMIN B12 INJECTION CPT-4: J3420 10/12/2016 THER/PROPH/DIAG INJ SC/IM CPT-4: 59571 09/11/2016 VITAMIN B12 INJECTION CPT-4: J3420 09/11/2016 THER/PROPH/DIAG INJ SC/IM CPT-4: 82044 07/03/2016 VITAMIN B12 INJECTION CPT-4: J3420 07/03/2016 VITAMIN B12 INJECTION CPT-4: J3420 04/20/2016 THER/PROPH/DIAG INJ SC/IM CPT-4: 65744 04/20/2016 ADMIN INFLUENZA VIRUS VAC CPT-4: G0008 03/17/2016 IIV4 FLU VACC NO PRESERV ID Formatting Model/CDA Sections, Assigned to/Kathy Lopez SNOMED CT: [id number] CPT-4: [id number] 03/17/2016 THER/PROPH/DIAG INJ SC/IM CPT-4: 64567 02/13/2016 VITAMIN B12 INJECTION CPT-4: J3420 02/13/2016 URINALYSIS NONAUTO W/O SCOPE CPT-4: 99918 12/10/2015 THER/PROPH/DIAG INJ SC/IM CPT-4: 83668 12/02/2015 VITAMIN B12 INJECTION CPT-4: J3420 12/02/2015 PNEUMOCOCCAL VACC [address]: [id number] CPT-4: 76313 12/02/2015 IMMUNIZATION ADMIN CPT -4: 40029 12/02/2015 THER/PROPH/DIAG INJ SC/IM CPT-4: 66971 10/29/2015 VITAMIN B12 INJECTION CPT-4: J3420 10/29/2015 THER/PROPH/DIAG INJ SC/IM CPT-4: 68562 06/10/2015 VITAMIN B12 INJECTION CPT-4: J3420 06/10/2015 THER/PROPH/DIAG INJ SC/IM CPT-4: 50789 02/15/2014 VITAMIN B12 INJECTION CPT-4: J3420 02/15/2014 TRIAMCINOLONE ACET INJ NOS CPT-4: J3301 01/15/2014 VITAMIN B12 INJECTION CPT-4: J3420 01/15/2014 THER/PROPH/DIAG INJ SC/IM CPT-4: 30413 12/04/2013 VITAMIN B12 INJECTION CPT-4: J3420 12/04/2013 THER/PROPH/DIAG INJ SC/IM CPT-4: 67391 07/24/2013 VITAMIN B12 INJECTION CPT-4: J3420 07/24/2013 PRESCRIP TRANSMIT VIA ERX SY CPT-4: G8553 06/12/2013 VITAMIN B12 INJECTION CPT-4: J3420 05/10/2013 THER/PROPH/DIAG INJ SC/IM CPT-4: 53071 05/10/2013 TRIAMCINOLONE ACET INJ NOS CPT-4: J3301 03/06/2013 PRESCRIP TRANSMIT VIA ERX SY CPT-4: G8553 03/06/2013 ADMIN INFLUENZA VIRUS VAC CPT-4: G0008 02/20/2013 FLULAVAL VACC, 3 YRS & >, IM CPT-4: Q2036 02/20/2013 THER/PROPH/DIAG INJ SC/IM CPT-4: 99658 02/20/2013 VITAMIN B12 INJECTION CPT-4: J3420 02/20/2013 THER/PROPH/DIAG INJ SC/IM CPT-4: 76757 12/26/2012 TRIAMCINOLONE ACET INJ NOS CPT-4: J3301 12/26/2012 THER/PROPH/DIAG INJ SC/IM CPT-4: 97752 12/21/2012 VITAMIN B12 INJECTION CPT-4: J3420 12/21/2012 THER/PROPH/DIAG INJ SC/IM CPT-4: 71757 11/16/2012 VITAMIN B12 INJECTION CPT-4: J3420 11/16/2012 TB INTRADERMAL TEST (includes injection fee) CPT-4: 01567 09/26/2012 THER/PROPH/DIAG INJ SC/IM CPT-4: 42990 09/12/2012 VITAMIN B12 INJECTION CPT-4: J3420 09/12/2012 TRIAMCINOLONE ACET INJ NOS CPT-4: J3301 08/11/2012 VITAMIN B12 INJECTION CPT-4: J3420 08/11/2012 THER/PROPH/DIAG INJ SC/IM CPT-4: 70329 08/11/2012 VITAMIN B12 INJECTION CPT-4: J3420 07/13/2012 THER/PROPH/DIAG INJ SC/IM CPT-4: 39711 07/13/2012 THER/PROPH/DIAG INJ SC/IM CPT-4: 29964 05/26/2012 TRIAMCINOLONE ACET INJ NOS CPT-4: J3301 05/26/2012 VITAMIN B12 INJECTION CPT-4: J3420 05/26/2012 ADMIN INFLUENZA VIRUS VAC CPT-4: G0008 03/02/2012 FLULAVAL VACC, 3 YRS & >, IM CPT-4: Q2036 03/02/2012 PRESCRIP TRANSMIT VIA ERX SY CPT-4: G8553 02/15/2012 TRIAMCINOLONE ACET INJ NOS CPT-4: J3301 01/13/2012 VITAMIN B12 INJECTION CPT-4: J3420 12/21/2011 VITAMIN B12 INJECTION CPT-4: J3420 10/30/2011 THER/PROPH/DIAG INJ SC/IM CPT-4: 72072 10/30/2011 THER/PROPH/DIAG INJ SC/IM CPT-4: 89120 10/02/2011 VITAMIN B12 INJECTION CPT-4: J3420 10/02/2011 TRIAMCINOLONE ACET INJ NOS CPT-4: J3301 10/02/2011 PRESCRIP TRANSMIT VIA ERX SY CPT-4: G8553 10/02/2011 VITAMIN B12 INJECTION CPT-4: J3420 09/01/2011 URINALYSIS NONAUTO W/O SCOPE CPT-4: 10089 08/03/2011 VITAMIN B12 INJECTION CPT-4: J3420 08/03/2011 THER/PROPH/DIAG INJ SC/IM CPT-4: 08171 08/03/2011 THER/PROPH/DIAG INJ SC/IM CPT-4: 14195 06/11/2011 VITAMIN B12 INJECTION CPT-4: J3420 06/11/2011 ROUTINE VENIPUNCTURE CPT-4: 62979 06/11/2011 THER/PROPH/DIAG INJ SC/IM CPT-4: 04384 02/23/2011 VITAMIN B12 INJECTION CPT-4: J3420 02/23/2011 ADMIN INFLUENZA VIRUS VAC CPT-4: G0008 02/23/2011 FLULAVAL VACC, 3 YRS & >, IM CPT-4: Q2036 02/23/2011 Vital Signs Date Vital 06/16/2018 Blood Pressure 1: 132/78 Code : 8480-6 Heart Rate 1: 120 bpm Height: 5'9" SpO2: 98% Weight: 06/01/2018 Blood Pressure 1: 138/70 Code : 8480-6 BMI: 30.9 Code : 34948-2 Heart Rate 1 : 120 bpm Height: 5'9" Respiratory Rate: 18 bpm SpO2: 96% Weight: 209 lbs 04/05/2018 Blood Pressure 1: 144/80 Code : 8480-6 BMI: 30.9 Code : 28091-2 Heart Rate 1 : 118 bpm Height: 5'9" SpO2: 98% Weight: 209 lbs 03/10/2018 Blood Pressure 1: 128/82 Code : 8480-6 Blood Pressure 1: 162/74 Code: 8480-6 BMI: 30.3 Code: 54531-1 Heart Rate 1: 101 bpm Height: 5'9" SpO2: 98% Weight: 205 lbs 01/13/2018 Blood Pressure 1: 102/78 Code : 8480-6 BMI: 31.6 Code : 55232-9 Heart Rate 1 : 103 bpm Height: 5'9" SpO2: 98% Weight: 214 lbs 11/25/2017 Blood Pressure 1: 114/80 Code : 8480-6 BMI: 30.3 Code : 14289-7 Heart Rate 1 : 112 bpm Height: 5'9" SpO2: 98% Weight: 205 lbs 10/19/2017 Blood Pressure 1: 110/70 Code : 8480-6 BMI: 30.7 Code : 76619-3 Heart Rate 1 : 102 bpm Height: 5'9" SpO2: 97% Weight: 208 lbs 09/17/2017 Blood Pressure 1: 132/78 Code : 8480-6 BMI: 30.4 Code : 34375-6 Heart Rate 1 : 117 bpm Height: 5'9" SpO2: 97% Weight: 206 lbs 09/06/2017 Blood Pressure 1: 11078 Code : 8480-6 BMI: 29.8 Code : 95506-0 Heart Rate 1 : 106 bpm Height: 5'9" SpO2: 97% Weight: 202 lbs 08/19/2017 Blood Pressure 1: 136/72 Code : 8480-6 BMI: 30.4 Code : 98240-8 Heart Rate 1 : 108 bpm Height: 5'9" SpO2: 94% Weight: 206 lbs 07/06/2017 Blood Pressure 1: 154/80 Code : 8480-6 Heart Rate 1: 111 bpm Height: 5'9" Respiratory Rate: 20 bpm SpO2: 98% Weight: 04/27/2017 Blood Pressure 1: 138/78 Code : 8480-6 BMI: 30.4 Code : 75740-8 Heart Rate 1 : 96 bpm Height: 5'9" SpO2: 97% Weight: 206 lbs 04/06/2017 Blood Pressure 1: 108/80 Code : 8480-6 BMI: 31.0 Code : 94583-7 Heart Rate 1 : 96 bpm Height: 5'9" SpO2: 98% Weight: 210 lbs 02/25/2017 Blood Pressure 1: 132/80 Code : 8480-6 BMI: 32.5 Code : 50731-1 Heart Rate 1 : 112 bpm Height: 5'9" SpO2: 94% Weight: 220 lbs 01/19/2017 Blood Pressure 1: 122/68 Code : 8480-6 Heart Rate 1: 100 bpm Height: 5'9" SpO2: 95% Weight: 11/17/2016 Blood Pressure 1: 132/74 Code : 8480-6 BMI: 32.2 Code : 39749-0 Heart Rate 1 : 98 bpm Height: 5'9" SpO2: 94% Weight: 218 lbs 10/12/2016 Blood Pressure 1: 130/82 Code : 8480-6 BMI: 32.2 Code : 87357-6 Heart Rate 1 : 97 bpm Height: 5'9" SpO2: 94% Weight: 218 lbs 08/18/2016 Blood Pressure 1: 132/78 Code : 8480-6 BMI: 32.0 Code : 51112-0 Heart Rate 1 : 113 bpm Height: 5'9" SpO2: 98% Weight: 217 lbs 08/07/2016 Blood Pressure 1: 126/70 Code : 8480-6 BMI: 33.1 Code : 14463-9 Heart Rate 1 : 102 bpm Height: 5'9" SpO2: 94% Weight: 224 lbs 07/31/2016 Blood Pressure 1: 134/66 Code : 8480-6 BMI: 31.7 Code : 02537-6 Heart Rate 1 : 97 bpm Height: 5'9" SpO2: 95% Temperature: 36.4 (C) / 97.6 (F) Weight: 215 lbs 07/15/2016 Blood Pressure 1: 126/62 Code : 8480-6 Heart Rate 1: 105 bpm Height: 5'9" Weight: 07/07/2016 Blood Pressure 1: 106/54 Code : 8480-6 BMI: 31.7 Code : 98252-7 Heart Rate 1 : 93 bpm Height: 5'9" SpO2: 97% Weight: 215 lbs 06/25/2016 Heart Rate 1: 99 bpm Height: 5'9" SpO2: 95% Weight: 05/07/2016 Blood Pressure 1: 124/86 Code : 8480-6 BMI: 28.5 Code : 94823-7 Heart Rate 1 : 100 bpm Height: 5'9" SpO2: 96% Weight: 193 lbs 04/20/2016 Blood Pressure 1: 120/80 Code : 8480-6 BMI: 28.5 Code : 39135-2 Heart Rate 1 : 86 bpm Height: 5'9" SpO2: 96% Weight: 193 lbs 03/17/2016 Blood Pressure 1: 120/70 Code : 8480-6 BMI: 29.1 Code : 18611-5 Heart Rate 1 : 103 bpm Height: 5'9" SpO2: 96% Weight: 197 lbs 03/05/2016 Blood Pressure 1: 124/78 Code : 8480-6 Heart Rate 1: 82 bpm Height: 5'9" SpO2: 94% Weight: 02/28/2016 Blood Pressure 1: 94/50 Code : 8480-6 Heart Rate 1: 91 bpm Height: 5'9" SpO2: 94% Weight: 02/13/2016 Blood Pressure 1: 128/86 Code : 8480-6 BMI: 28.6 Code : 43342-9 Heart Rate 1 : 100 bpm Height: 5'9" SpO2: 96% Weight: 194 lbs 08/15/2015 Blood Pressure 1: 128/68 Code : 8480-6 BMI: 27.3 Code : 66928-7 Heart Rate 1 : 72 bpm Height: 5'9" SpO2: 92% Weight: 185 lbs 07/25/2015 Blood Pressure 1: 122/76 Code : 8480-6 BMI: 27.5 Code : 08988-0 Heart Rate 1 : 70 bpm Height: 5'9" SpO2: 94% Weight: 186 lbs 06/25/2015 Blood Pressure 1: 118/54 Code : 8480-6 BMI: 26.7 Code : 32351-4 Heart Rate 1 : 98 bpm Height: 5'9" SpO2: 97% Weight: 181 lbs 06/10/2015 Blood Pressure 1: 110/68 Code : 8480-6 Heart Rate 1: 80 bpm Height: SpO2: 98% Weight: 05/08/2015 Blood Pressure 1: 120/68 Code : 8480-6 BMI: 27.5 Code : 90956-2 Heart Rate 1 : 95 bpm Height: 5'9" SpO2: 96% Weight: 186 lbs 03/26/2015 Blood Pressure 1: 120/80 Code : 8480-6 Heart Rate 1: 102 bpm Respiratory Rate: 18 bpm SpO2: 92% Weight: 186 lbs 03/15/2015 Blood Pressure 1: 122/64 Code : 8480-6 BMI: 26.6 Code : 61086-6 Heart Rate 1 : 96 bpm Height: 5'9" SpO2: 96% Weight: 180 lbs 01/10/2015 Blood Pressure 1: 120/68 Code : 8480-6 BMI: 27.5 Code : 31599-8 Heart Rate 1 : 90 bpm Height: 5'9" Weight: 186 lbs 12/21/2014 Blood Pressure 1: 118/78 Code : 8480-6 BMI: 27.2 Code : 55423-0 Heart Rate 1 : 61 bpm Height: 5'9" SpO2: 97% Weight: 184 lbs 10/05/2014 Blood Pressure 1: 118/64 Code : 8480-6 BMI: 27.0 Code : 01196-4 Heart Rate 1 : 76 bpm Height: 5'9" Weight: 183 lbs 06/14/2014 Blood Pressure 1: 120/78 Code : 8480-6 BMI: 26.6 Code : 24682-3 Heart Rate 1 : 96 bpm Height: 5'9" Weight: 180 lbs 01/19/2014 Blood Pressure 1: 128/76 Code : 8480-6 BMI: 27.3 Code : 68788-7 Heart Rate 1 : 82 bpm Height: 5'9" Weight: 185 lbs 01/15/2014 Blood Pressure 1: 110/62 Code : 8480-6 BMI: 27.9 Code : 27202-4 Heart Rate 1 : 80 bpm Height: 5'9" Weight: 189 lbs 10/20/2013 Blood Pressure 1: 112/62 Code : 8480-6 BMI: 30.1 Code : 47323-6 Heart Rate 1 : 76 bpm Height: [...] Code : 8480-6 BMI: 30.6 Code : 28832-5 Heart Rate 1 : 92 bpm Height: 5'9" Weight: 207 lbs 05/23/2013 Blood Pressure 1: 120/78 Code : 8480-6 Heart Rate 1: 84 bpm Weight: 05/19/2013 Blood Pressure 1: 126/78 Code : 8480-6 BMI: 30.3 Code : 63950-3 Heart Rate 1 : 88 bpm Height: 5'9" Weight: 205 lbs 05/16/2013 Blood Pressure 1: 126/66 Code : 8480-6 BMI: 30.3 Code : 48542-9 Heart Rate 1 : 84 bpm Height: 5'9" Weight: 205 lbs 03/06/2013 Blood Pressure 1: 128/76 Code : 8480-6 BMI: 30.6 Code : 53472-1 Heart Rate 1 : 88 bpm Height: 5'9" Weight: 207 lbs 12/26/2012 Blood Pressure 1: 142/70 Code : 8480-6 BMI: 29.6 Code : 43786-6 Heart Rate 1 : 100 bpm Height: 5'9" Weight: 200 lbs 8 oz 11/21/2012 Blood Pressure 1: 132/80 Code : 8480-6 BMI: 29.5 Code : 67999-2 Heart Rate 1 : 96 bpm Height: [...] Code : 8480-6 BMI: 29.2 Code : 57905-4 Heart Rate 1 : 64 bpm Height: 5'9" Respiratory Rate: 16 bpm Weight: 198 lbs 03/11/2011 Blood Pressure 1: 106/60 Code : 8480-6 BMI: 28.8 Code : 17587-9 Heart Rate 1 : 100 bpm Height: 5'9" SpO2: 97% Weight: 195 lbs 02/12/2011 Weight: 192 lbs 01/29/2011 Blood Pressure 1: 100/64 Code : 8480-6 BMI: 28.1 Code : 33095-1 Heart Rate 1 : 100 bpm Height: 5'9" Respiratory Rate: 20 bpm Weight: 190 lbs 8 oz Functional Status No Functional Status data History of Present Illness Symptom Name Status Result Effective Date Notes Quality chronic 06/16 None Quality primary hypertension 06/16/2018 None Onset and Resolution ongoing 06/16/2018 None Onset of Symptom during adulthood 06/16/2018 None Alleviating Factors medication 06/16/2018 None Quality chronic 06/16 None Onset and Resolution ongoing 06/16/2018 None Alleviating Factors medication 06/16/2018 None Quality worsening 03/2019 None Location diffusely None Onset and Resolution ongoing 06/16/2018 None Alleviating Factors medication 06/16/2018 None Quality chronic 06/16 None Blood Pressure Values not checking blood pressure at home 06/16/2018 None Severity not consistently severe symptoms, the symptoms fluctuate from no symptoms to anxiety and headaches 06/16/2018 None Frequency of Episodes unchanged 06/16/2018 None Triggers no known associated factors 06/16/2018 None Significant Family History hypertension 06/16/2018 None Onset of Symptom _ years ago 06/16/2018 None Frequency of Episodes unchanged 06/16/2018 None Triggers stress 06/16 None Triggers family discord 06/16/2018 None Significant Family History anxiety disorder 06/16/2018 None Significant Medical Conditions precipitating event for anxiety (PTSD) 06/16/2018 None Location diffusely None Quality chronic 06/01 None Onset and Resolution ongoing 06/01/2018 None Limitation on Activities moderately limits activities 06/01/2018 None Frequency of Episodes daily 06/01/2018 None Alleviating Factors medication 06/01/2018 None pain, generalized Location diffusely 04/05/2018 None pain, generalized Quality chronic 04/05/2018 None pain, generalized Onset and Resolution ongoing 04/05/2018 None pain, generalized Limitation on Activities moderately limits activities 04/05/2018 None pain, generalized Frequency of Episodes daily 04/05/2018 None pain, generalized Alleviating Factors medication 04/05/2018 None pain, generalized Location diffusely 03/10/2018 None pain, generalized Quality chronic 03/10/2018 None pain, generalized Onset and Resolution ongoing 03/10/2018 None pain, generalized Alleviating Factors medication 03/10/2018 None pain, generalized Limitation on Activities moderately limits activities 03/10/2018 None pain, generalized Frequency of Episodes daily 03/10/2018 None headache Onset and Resolution ongoing 01/13/2018 None headache Quality intermittent 01/13/2018 None headache Frequency of Episodes daily 01/13/2018 None headache Onset of Symptom months ago 01/13/2018 None headache Triggers trauma 01/13/2018 (concussion) headache Pertinent Findings diplopia 01/13/2018 None depression Quality chronic 11/25/2017 None depression Alleviating Factors therapy 11/25/2017 None depression Alleviating Factors medication 11/25/2017 None depression Triggers stress 11/25/2017 None depression Quality worsening 11/25/2017 None depression Onset and Resolution ongoing 11/25/2017 None depression Onset of Symptom during adulthood 11/25/2017 None depression Limitation on Activities does not limit activities 11/25/2017 None depression Frequency of Episodes unchanged 11/25/2017 None depression Significant Medical Conditions anxiety disorder 11/25/2017 None rash Location-Extremities on the right arm 10/19/2017 None rash Location-Extremities on the right hand 10/19/2017 None rash Quality acute None rash Quality pruritic 10/19/2017 None rash Quality painful 10/19/2017 None rash Color erythematous 10/19/2017 None rash Onset and Resolution sudden in onset 10/19/2017 None rash Onset of Symptom 3-4 days ago 10/19/2017 None Hospital Follow Up _ infection 09/17/2017 None Hospital Follow Up Quality chronic illness 09/17/2017 None Hospital Follow Up Onset and Resolution sudden in onset 09/17/2017 None Hospital Follow Up Location diffusely 09/17/2017 None Hospital Follow Up Onset of Symptom _ weeks ago 09/17/2017 None Hospital Follow Up Severity moderate 09/17/2017 None Hospital Follow Up Significant Medical Conditions acute illness 09/17/2017 None Hospital Follow Up Alleviating Factors medication 09/17/2017 None hypertension Quality chronic 09/06/2017 None hypertension Onset and Resolution ongoing 09/06/2017 None hypertension Onset of Symptom during adulthood 09/06/2017 None hypertension Frequency of Episodes unchanged 09/06/2017 None pain, generalized Onset and Resolution ongoing 09/06/2017 None hypertension Quality primary hypertension 09/06/2017 None hypertension Quality stable 09/06/2017 None pain, generalized Location diffusely 09/06/2017 None pain, generalized Quality chronic 09/06/2017 None pain, generalized Alleviating Factors medication 09/06/2017 None hypertension Onset and Resolution ongoing 08/19/2017 None hypertension Quality chronic 08/19/2017 None hypertension Onset of Symptom during adulthood 08/19/2017 None pain, generalized Onset and Resolution ongoing 08/19/2017 None hypertension Blood Pressure Values not checking blood pressure at home 08/19/2017 None hypertension Severity not consistently severe symptoms, the symptoms fluctuate from no symptoms to anxiety and headaches 08/19/2017 None hypertension Frequency of Episodes unchanged 08/19/2017 None hypertension Triggers no known associated factors 08/19/2017 None hypertension Alleviating Factors medication 08/19/2017 None vision change Location in both eyes 04/27/2017 [...] Hospital Follow Up _ pain 05/16/2013 left [id number] to left knee-applying neosporin and covering with [...] pt to have a study done at patient care [facility] [id number] shortness of breath Triggers exertion 03/11/2011 None [...] 02/12/2011 and pt went to her chiropractor/ cloud engineer this week and was" worked on" and she has been feeling better shortness of breath Alleviating Factors rest 02/12/2011 pt states that her shortness of breath got better after her cloud engineer adjusted her pelvis gastroesophageal reflux Quality [...] data Encounters Encounter Performer Location Codes Date ) 82722 EST. PATIENT, LEVEL III Diagnosis: Acute upper respiratory infection, unspecified[ICD10: J06.9] Diagnosis: Generalized anxiety disorder[ICD10: F41.1] Valentina Thompson MD, [facility] CPT-4: 29299 06/16/[id number]) 80166 EST. PATIENT, LEVEL IV Diagnosis: Chronic pain syndrome[ICD10: G89.4] Diagnosis: Generalized anxiety disorder[ICD10: F41.1] Diagnosis: Low back pain[ICD10: M54.5] Diagnosis: Essential (primary) hypertension[ICD10: I10] Aicha Thompson MD, [facility] CPT-4: 79854 06/01/2018 ([id number]) 25620 EST. PATIENT, LEVEL IV Diagnosis: Essential (primary) hypertension[ICD10: I10] Diagnosis: Chronic pain syndrome[ICD10: G89.4] Diagnosis: Vitamin B12 deficiency anemia due to intrinsic factor deficiency[ ICD10: D51.0] Aicha Thompson MD, [facility] CPT-4: 62553 04/05/2018 ([id number]) 71852 EST. PATIENT, LEVEL IV Diagnosis: Essential (primary) hypertension[ICD10: I10] Diagnosis: Generalized anxiety disorder[ICD10: F41.1] Diagnosis: Major depressive disorder, recurrent, mild[ICD10: F33.0] Diagnosis: Vitamin B12 deficiency anemia due to intrinsic factor deficiency[ ICD10: D51.0] Valentina Thompson MD, [facility] CPT-4: 78365 03/10/2018 ([id number]) 98860 EST. PATIENT, LEVEL IV Diagnosis: Headache[ICD10: R51] Diagnosis: Obstructive sleep apnea (adult) (pediatric)[ICD10: G47.33] Diagnosis: Cervicalgia[ICD10: M54.2] Valentina Thompson MD, [facility] CPT-4: 41745 01/13/2018 ([id number]) 70520 EST. PATIENT, LEVEL IV Diagnosis: Headache[ICD10: R51] Diagnosis: Spinal stenosis, cervical region[ICD10: M48.02] Diagnosis: Major depressive disorder, recurrent, mild[ICD10: F33.0] Valentina Thompson MD , [facility] CPT-4: 11052 11/25/2017 ([id number]) 05063 EST. PATIENT, LEVEL III Diagnosis: Allergic contact dermatitis due to plants, except food[ICD10: L23.7] Diagnosis: Vitamin B12 deficiency anemia due to intrinsic factor deficiency[ ICD10: D51.0] Valentina Thompson MD, [facility] CPT-4: 27005 10/19/2017 ([id number]) 59228 EST. PATIENT, LEVEL IV Diagnosis: Generalized abdominal pain[ICD10: R10.84] Diagnosis: Urinary tract infection, site not specified[ICD10: N39.0] Diagnosis: Hypokalemia[ICD10: E87.6] Valentina Thompson MD, [facility] CPT-4: 96242 09/17/2017 ([id number]) 81929 EST. PATIENT, LEVEL IV Diagnosis: Chronic pain syndrome[ICD10: G89.4] Diagnosis: Pain in left knee[ICD10: M25.562] Diagnosis: Pain in right knee[ICD10: M25.561] Diagnosis: Essential (primary) hypertension[ICD10: I10] Aicha Thompson MD, [facility] CPT-4: 38844 09/06/2017 ([id number]) 90891 EST. PATIENT, LEVEL IV Diagnosis: Headache[ICD10: R51] Diagnosis: Chronic pain syndrome[ICD10: G89.4] Diagnosis: Mixed hyperlipidemia[ICD10: E78.2] Diagnosis: Vitamin D deficiency, unspecified[ICD10: E55.9] Diagnosis: Vitamin B12 deficiency anemia, unspecified[ICD10: D51.9] Valentina Thompson MD , [facility] CPT-4: 81788 08/19/2017 [id number] EST. PATIENT, LEVEL V Diagnosis: Essential (primary) hypertension[ICD10: I10] Diagnosis: Vitamin B12 deficiency anemia due to intrinsic factor deficiency[ ICD10: D51.0] Diagnosis: Chronic pain syndrome[ICD10: G89.4] Aicha Thompson MD, [facility] CPT-4: 94371 07/06/2017 ([id number]) 00707 EST. PATIENT, LEVEL IV Diagnosis: Cervicalgia[ICD10: M54.2] Diagnosis: Laceration without foreign body of scalp, initial encounter[ICD10: S01.01XA] Diagnosis: Vitamin B12 deficiency anemia due to intrinsic factor deficiency[ ICD10: D51.0] Valentina Thompson MD, [facility] CPT-4: 79509 04/27/2017 96989 EST. PATIENT, LEVEL II Diagnosis: Residual hemorrhoidal skin tags[ICD10: K64.4] Valentina Thompson MD, [facility] CPT-4: 29863 04/06/2017 ([id number]) 00484 EST. PATIENT, LEVEL III Diagnosis: Pain in right foot[ICD10: M79.671] Diagnosis: Pain in left foot[ICD10: M79.672] Diagnosis: Cervicalgia[ICD10: M54.2] Valentina Thompson MD, [facility] CPT-4: 52437 02/25/2017 ([id number]) 05009 EST. PATIENT, LEVEL IV Diagnosis: Essential (primary) hypertension[ICD10: I10] Diagnosis: Chronic pain syndrome[ICD10: G89.4] Diagnosis: Spinal stenosis, cervical region[ICD10: M48.02] Diagnosis: Pain in right leg[ICD10: M79.604] Valentina Thompson MD, [facility] CPT-4: 37907 01/19/2017 ([id number]) 00285 EST. PATIENT, LEVEL III Diagnosis: Pain in right foot[ICD10: M79.671] Diagnosis: Pain in left foot[ICD10: M79.672] Diagnosis: Chronic pain syndrome[ICD10: G89.4] Diagnosis: Vitamin B12 deficiency anemia, unspecified[ICD10: D51.9] Valentina Thompson MD , [facility] CPT-4: 40537 11/17/2016 ([id number]) 85233 EST. PATIENT, LEVEL IV Diagnosis: Essential (primary) hypertension[ICD10: I10] Diagnosis: Chronic pain syndrome[ICD10: G89.4] Diagnosis: Foot drop, right foot[ICD10: M21.371] Diagnosis: Foot drop, left foot[ICD10: M21.372] Diagnosis: Other abnormalities of gait and mobility[ICD10: R26.89] Diagnosis: Vitamin B12 deficiency anemia due to intrinsic factor deficiency[ ICD10: D51.0] Aicha Thompson MD, [facility] CPT-4: 79448 10/12/2016 ([id number]) 41041 EST. PATIENT, LEVEL III Diagnosis: Pain in right ankle and joints of right foot[ICD10: M25.571] Diagnosis: Superficial foreign body, right foot, initial encounter[ICD10: S90.851A] Valentina Thompson MD, [facility] CPT-4: 68284 ([id number]) 71169 EST. PATIENT, LEVEL III Diagnosis: Candidiasis of vulva and vagina[ICD10: B37.3] Diagnosis: Vitamin B12 deficiency anemia, unspecified[ICD10: D51.9] Valentina Thompson MD , [facility] CPT-4: 25812 08/07/2016 ([id number]) 51600 EST. PATIENT, LEVEL III Diagnosis: Spinal stenosis, cervical region[ICD10: M48.02] Diagnosis: Pain in right ankle and joints of right foot[ICD10: M25.571] Diagnosis: Pain in left ankle and joints of left foot[ICD10: M25.572] Valentina Thompson MD, [facility] CPT-4: 28478 07/31/2016 99334 EST. PATIENT, LEVEL III Diagnosis: Cervicalgia[ICD10: M54.2] Diagnosis: Chronic pain syndrome[ICD10: G89.4] Beatriz Thompson MD, [facility] CPT-4: 46318 07/15/2016 ([id number]) 17387 EST. PATIENT, LEVEL III Diagnosis: Spinal stenosis, cervical region[ICD10: M48.02] Diagnosis: Low back pain[ICD10: M54.5] Valentina Thompson MD, [facility] CPT-4: 26120 07/07/2016 [id number]) 64308 EST. PATIENT, LEVEL IV Diagnosis: Cervicalgia[ICD10: M54.2] Diagnosis: Essential (primary) hypertension[ICD10: I10] Diagnosis: Mixed hyperlipidemia[ICD10: E78.2] Aicha Thompson MD, [facility] CPT-4: 81656 06/25/2016 ([id number]) 01988 EST. PATIENT, LEVEL III Diagnosis: Cervicalgia[ICD10: M54.2] Valentina Thompson MD, [facility] CPT-4: 27961 05/07/2016 ([id number]) 43891 EST. PATIENT, LEVEL III Diagnosis: Pleurodynia[ICD10: R07.81] Diagnosis: Generalized anxiety disorder[ICD10: F41.1] Diagnosis: Vitamin B12 deficiency anemia due to intrinsic factor deficiency[ ICD10: D51.0] Diagnosis: Hypoxemia[ICD10: R09.02] Valentina Thompson MD, [facility] CPT-4: 78966 04/20/2016 ([id number]) 16023 EST. PATIENT, LEVEL III Diagnosis: Generalized anxiety disorder[ICD10: F41.1] Diagnosis: Radiculopathy, lumbar region[ICD10: M54.16] Valentina Thompson MD, [facility] CPT-4: 01398 03/17/2016 13996 EST. PATIENT, LEVEL IV Diagnosis: Chronic pain syndrome[ICD10: G89.4] Diagnosis: Radiculopathy, lumbar region[ICD10: M54.16] Diagnosis: Generalized anxiety disorder[ICD10: F41.1] Beatriz Thompson MD, [facility] CPT-4: 42741 03/05/[id number]) 30625 EST. PATIENT, LEVEL III Diagnosis: Radiculopathy, lumbar region[ICD10: M54.16] Diagnosis: Generalized anxiety disorder[ICD10: F41.1] Valentina Thompson MD, [facility] CPT-4: 38900 02/28/2016 ([id number]) 17795 EST. 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 PATIENT, LEVEL III Diagnosis: Headache[ICD10: R51] Diagnosis: Cervicalgia[ICD10: M54.2] Valentina Thompson MD, [facility] CPT-4: 98341 08/15/2015 ([id number]) 15490 EST. PATIENT, LEVEL III Diagnosis: Generalized anxiety disorder[ICD10: F41.1] Diagnosis: Cervicalgia[ICD10: M54.2] Valentina Thompson MD, [facility] CPT-4: 93561 07/25/2015 ([id number]) 46117 EST. PATIENT, LEVEL IV Diagnosis: Pain in right foot[ICD10: M79.671] Diagnosis: Unspecified osteoarthritis, unspecified site[ICD10: M19.90] Diagnosis: Pain in left ankle and joints of left foot[ICD10: M25.572] Diagnosis: Pain in right ankle and joints of right foot[ICD10: M25.571] Valentina Thompson MD, [facility] CPT-4: 70692 06/25/2015 ([id number]) 93120 EST. 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 PATIENT, LEVEL IV Diagnosis: Essential (primary) hypertension[ICD10: I10] Diagnosis: Pain in right foot[ICD10: M79.671] Diagnosis: Pain in left foot[ICD10: M79.672] Diagnosis: Anxiety disorder, unspecified[ICD10: F41.9]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
[2018-08-03 06:04] LABS: BASOPHILS % (AUTO) 0 % (0-10); EOSINOPHILS # (AUTO) 0.2 10^3/uL (0.0-0.3); EOSINOPHILS % (AUTO) 2 % (0-10); HEMATOCRIT 41 % (35-52); HEMOGLOBIN 12.8 G/DL (11.5-16.0); LYMPHOCYTES # (AUTO) 3.2 X 10^3 (1.0-4.0); LYMPHOCYTES % (AUTO) 36 % (12-44); MEAN CORPUSCULAR HEMOGLOBIN 31 PG (25-34); MEAN CORPUSCULAR HGB CONC 32 G/DL (32-36); MEAN CORPUSCULAR VOLUME 98 FL (80-99); MEAN PLATELET VOLUME 9.1 FL (7.4-10.4); MONOCYTES # (AUTO) 0.9 X 10^3 (0.0-1.0); MONOCYTES % (AUTO) 10 % (0-12); NEUTROPHILS # (AUTO) 4.8 X 10^3 (1.8-7.8); NEUTROPHILS % (AUTO) 53 % (42-75); PLATELET COUNT 248 10^3/uL (130-400); RED CELL DISTRIBUTION WIDTH 13.6 % (10.0-14.5); WHITE BLOOD COUNT 9.1 10^3/uL (4.3-11.0)
--- OUTSIDE RECORDS SUMMARY | 2018-08-03 06:05 | XMS REPORT | CCD ---
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 Name Role Phone PP Unavailable CCM Unavailable Summary Purpose Interface Exchange Insurance Providers Payer name Policy type / Coverage type Covered republican ID Effective Begin Date Effective End Date WPS Medicare Part B Medicare Part B [id number] 2013 Unknown [facility] Medicare Part B [id number] 2013 Unknown Family history Grandmother Diagnosis Age [...] status Unknown 01/29/[address]: 253040233 Never smoker 01/29/[address]: 703394 Currently drinks alcohol mixed drink before bed [...] sleep apnea Unknown Active 05/14/2011 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 03/11/2011 Unknown Overweight (BMI [...] Active sleep apnea Unknown 05/14/2011 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 03/11/2011 Active Overweight (BMI 25.0-29.9) [...] Start Date Stop Date Status Fill Instructions Effexor XR 150 mg capsule,extended release RxNorm: 898363 1 CAPSULE(S) PO BID 1 CAPSULE(S) PO BID 07/25/2018 12/21/2018 Active TAKE 1 CAPSULE BY MOUTH TWICE DAILY Vitamin D2 50,000 unit capsule RxNorm: 1568729 1 CAPSULE(S) PO QW X8 WEEKS 07/08/2018 09/05/2018 Active Patient requests 90 days supply Vitamin D2 50,000 unit capsule RxNorm: 9437411 1 Capsule(s) PO QW x8 weeks 07/08/2018 07/07/2018 Inactive Vitamin D2 50,000 unit capsule RxNorm: 8970542 1 Capsule(s) PO QW x8 weeks 07/08/2018 07/07/2018 Inactive diazepam 5 mg tablet RxNorm: 910528 1 Tablet(s) PO BID 201807/27/2018 Active tramadol 50 mg tablet RxNorm: 257861 1-2 Tablet(s) PO TID as needed 06/27/2018 08/25/2018 Active Claritin-D 12 Hour 5 mg-120 mg tablet,extended release RxNorm: 0628671 Tablet(s) as needed TAKE 1 TABLET BY MOUTH TWICE DAILY NEEDED 201808/13/2018 Active diazepam 5 mg tablet RxNorm: 241468 2 Tablet(s) (10 mg) PO QAM and 1 Tablet (5 mg ) PO QHS 06/15/2018 07/04/2018 Inactive Lipitor 20 mg tablet RxNorm: 602067 1 TABLET(S) PO DAILY 201705/12/2019 Active TAKE ONE TABLET BY MOUTH EVERY NIGHT AT BEDTIME tramadol 50 mg tablet RxNorm: 507651 1-2 Tablet(s) PO TID as needed 04/20/2018 06/17/2018 Inactive Valium 10 mg tablet RxNorm: 589969 1 Tablet(s) daily as needed 04/18/2018 05/31/2018 Inactive hydrocodone 10 mg-acetaminophen 325 mg tablet RxNorm: 676037 1 tab bid x 1 week then daily x 2 weeks then stop Tablet(s) PO Q6 for pain 04/1805/10/2018 Inactive diazepam 10 mg tablet RxNorm: 242284 1 Tablet(s) BID 04/18/2018 06/14/2018 Inactive Claritin-D 12 Hour 5 mg-120 mg tablet,extended release RxNorm: 4758628 Tablet(s) as needed TAKE 1 TABLET BY MOUTH TWICE DAILY NEEDED 201706/11/2018 Inactive tramadol 50 mg tablet RxNorm: 319396 1-2 Tablet(s) PO TID as needed 03/10/2018 04/07/2018 Inactive cyanocobalamin (vit B-12) 1,000 mcg/mL injection solution RxNorm: 661122 1 Milliliter(s) Inj 03/10/2018 03/10/2018 Inactive Seroquel 100 mg tablet RxNorm: 650633 1 TABLET(S) PO BID 201703/01/2019 Active TAKE 1 TABLET BY MOUTH TWICE DAILY hydrocodone 10 mg-acetaminophen 325 mg tablet RxNorm: 176939 1-2 Tablet(s) PO Q6 as needed for pain 02/21/2018 03/09/2018 Inactive Ventolin HFA 90 mcg/actuation aerosol inhaler RxNorm: 819469 1 OR 2 PUFF(S) INH Q6 PRN NEEDED 01/13/2018 07/11/2018 Inactive trazodone 100 mg tablet RxNorm: 810521 TABLET(S) TAKE 2 TABLETS BY MOUTH EVERY NIGHT AT BEDTIME 12/07/2017 09/02/2018 Active hydrocodone 10 mg-acetaminophen 325 mg tablet RxNorm: 367181 1-2 Tablet(s) PO Q6 as needed for pain 12/03/2017 12/25/2017 Inactive Ventolin HFA 90 mcg/actuation aerosol inhaler RxNorm: 143893 1 OR 2 PUFF(S) INH Q6 PRN NEEDED 11/26/2017 01/12/2018 Inactive Savella 100 mg tablet RxNorm: 965387 TABLET(S) PO TAKE 1 TABLET BY MOUTH DAILY 11/23/2017 No Stop Date Active Effexor XR 150 mg capsule,extended release RxNorm: 771840 1 CAPSULE(S) PO BID 1 CAPSULE(S) PO BID 11/23/2017 04/21/2018 Inactive TAKE 1 CAPSULE BY MOUTH TWICE DAILY diazepam 10 mg tablet RxNorm: 373810 Tablet(s) TAKE 1 TABLET BY MOUTH FOUR TIMES DAILY NEEDED 11/23/2017 03/09/2018 Inactive Claritin-D 12 Hour 5 mg-120 mg tablet,extended release RxNorm: 5535127 Tablet(s) as needed TAKE 1 TABLET BY MOUTH TWICE DAILY NEEDED 201706/14/2018 Inactive Valium 10 mg tablet RxNorm: 673342 1 Tablet(s) QID as needed 11/16/2017 01/14/2018 Inactive metoprolol tartrate 25 mg tablet RxNorm: 726851 TABLET(S) TABLET(S) 1/2 TABLET(S) PO BID TAKE 1/2 TABLET BY MOUTH TWICE DAILY 11/12/2017 No Stop Date Active pantoprazole 40 mg tablet,delayed release RxNorm: 311059 TAKE 1 TABLET BY MOUTH EVERY DAY 11/12/2017 05/10/2018 Inactive betamethasone dipropionate 0.05 % topical cream RxNorm: 537287 1 APPLICATION TOP BID 10/22/2017 11/04/2017 Inactive tramadol 50 mg tablet RxNorm: 821738 1-2 Tablet(s) PO TID as needed 10/20/2017 01/16/2018 Inactive prednisone 10 mg tablets in a dose pack RxNorm: 846762 1 Tablet(s) PO UD 10/19/2017 10/24/2017 Inactive 6-5-4-3-2-1 cyanocobalamin (vit B-12) 1,000 mcg/mL injection solution RxNorm: 594920 1 Milliliter(s) Inj 10/19/2017 10/19/2017 Inactive betamethasone dipropionate 0.05 % topical cream RxNorm: 530314 1 Application TOP BID 10/19/2017 10/21/2017 Inactive hydrocodone 10 mg-acetaminophen 325 mg tablet RxNorm: 279732 1-2 Tablet(s) PO Q6 as needed for pain 10/19/2017 11/10/2017 Inactive Effexor XR 150 mg capsule,extended release RxNorm: 862337 1 Capsule(s) PO BID 1 CAPSULE(S) PO BID 10/19/2017 11/22/2017 Inactive TAKE 1 CAPSULE BY MOUTH TWICE DAILY prednisone 5 mg tablet RxNorm: 134709 1 Tablet(s) PO UD 2017 No Stop Date Active Cipro 500 mg tablet RxNorm: 846467 1 Tablet(s) PO BID 201709/26/2017 Inactive Flagyl 500 mg tablet RxNorm: 620934 1 Tablet(s) PO TID 201709/26/2017 Inactive prednisone 10 mg tablet RxNorm: 237505 1 Tablet(s) PO UD 201709/16/2017 Inactive 2 tabs daily x 3 days 1 tab daily x 3 daily then resume usual 5mg daily hydrocodone 10 mg-acetaminophen 325 mg tablet RxNorm: 751399 1-2 Tablet(s) PO Q6 as needed for pain 09/10/2017 10/02/2017 Inactive Savella 100 mg tablet RxNorm: 823903 TABLET(S) PO TAKE 1 TABLET BY MOUTH DAILY 08/31/2017 No Stop Date Active cyanocobalamin (vit B-12) 1,000 mcg/mL injection solution RxNorm: 726683 1 Milliliter(s) Inj 08/19/2017 08/19/2017 Inactive pantoprazole 40 mg tablet,delayed release RxNorm: 555997 TAKE 1 TABLET BY MOUTH EVERY DAY 08/17/2017 11/11/2017 Inactive trazodone 100 mg tablet RxNorm: 058824 TABLET(S) TAKE 2 TABLETS BY MOUTH EVERY NIGHT AT BEDTIME 08/17/2017 12/06/2017 Inactive Ventolin HFA 90 mcg/actuation aerosol inhaler RxNorm: 642785 1 OR 2 PUFF(S) INH Q6 PRN NEEDED 08/11/2017 01/07/2018 Inactive Advair Diskus 250 mcg-50 mcg/dose powder for inhalation RxNorm: 3896025 1 Puff(s) INH BID 08/11/2017 12/08/2017 Inactive Advair Diskus 250 mcg-50 mcg/dose powder for inhalation RxNorm: 5423648 1 PUFF(S) INH BID 08/11/2017 11/08/2017 Inactive Ventolin HFA 90 mcg/actuation aerosol inhaler RxNorm: 892587 1 OR 2 PUFF(S) INH Q6 PRN NEEDED 08/11/2017 11/25/2017 Inactive hydrocodone 10 mg-acetaminophen 325 mg tablet RxNorm: 416343 1-2 Tablet(s) PO Q6 as needed for pain 08/03/2017 08/25/2017 Inactive tramadol 50 mg tablet RxNorm: 578034 1-2 Tablet(s) PO TID as needed 07/26/2017 04/19/2018 Inactive Valium 10 mg tablet RxNorm: 549338 1 Tablet(s) QID as needed 07/09/2017 09/06/2017 Inactive Effexor XR 150 mg capsule,extended release RxNorm: 174317 Capsule(s) 1 CAPSULE(S) PO BID 07/07/2017 10/18/2017 Inactive TAKE 1 CAPSULE BY MOUTH TWICE DAILY metoprolol tartrate 25 mg tablet RxNorm: 691831 Tablet(s) TABLET(S) 1/2 TABLET(S) PO BID TAKE 1/2 TABLET BY MOUTH TWICE DAILY 07/07/2017 11/11/2017 Inactive diazepam 10 mg tablet RxNorm: 101599 Tablet(s) TAKE 1 TABLET BY MOUTH FOUR TIMES DAILY NEEDED 07/07/2017 08/02/2017 Inactive cyanocobalamin (vit B-12) 1,000 mcg/mL injection solution RxNorm: 136390 1 Milliliter(s) Inj 07/06/2017 07/06/2017 Inactive tramadol 50 mg tablet RxNorm: 480089 1-2 Tablet(s) PO TID as needed 06/21/2017 09/17/2017 Inactive hydrocodone 10 mg-acetaminophen 325 mg tablet RxNorm: 183211 1-2 Tablet(s) PO Q6 as needed for pain 06/17/2017 07/09/2017 Inactive cyclobenzaprine 10 mg tablet RxNorm: 768478 TAKE 1 TABLET BY MOUTH THREE TIMES DAILY NEEDED FOR MUSCLE SPASMS 06/08/2017 08/31/2018 Active Claritin-D 12 Hour 5 mg-120 mg tablet,extended release RxNorm: 5947754 Tablet(s) as needed TAKE 1 TABLET BY MOUTH TWICE DAILY NEEDED 201709/04/2017 Inactive Lipitor 20 mg tablet RxNorm: 598870 1 TABLET(S) PO DAILY 201705/17/2018 Inactive TAKE ONE TABLET BY MOUTH EVERY NIGHT AT BEDTIME trazodone 100 mg tablet RxNorm: 422659 TABLET(S) TAKE 2 TABLETS BY MOUTH EVERY NIGHT AT BEDTIME 05/17/2017 08/14/2017 Inactive cyclobenzaprine 5 mg tablet RxNorm: 802166 Tablet(s) PO TAKE 1 TABLET BY MOUTH THREE TIMES DAILY NEEDED FOR MUSCLE SPASMS (New dose has not been sent to pharmacy) 05/11/2017 No Stop Date Active Valium 5 mg tablet RxNorm: 193745 1 Tablet(s) PO QID as needed (New dose has not been sent to pharmacy) 05/11/2017 Inactive diazepam 10 mg tablet RxNorm: 370330 TAKE 1 TABLET BY MOUTH FOUR TIMES DAILY NEEDED 04/28/2017 05/27/2017 Inactive hydrocodone 10 mg-acetaminophen 325 mg tablet RxNorm: 386416 1-2 Tablet(s) PO Q6 as needed for pain 04/27/2017 05/19/2017 Inactive cyanocobalamin (vit B-12) 1,000 mcg/mL injection solution RxNorm: 076904 1 Milliliter(s) Inj 04/27/2017 04/27/2017 Inactive hydrocodone 10 mg-acetaminophen 325 mg tablet RxNorm: 960294 1-2 Tablet(s) PO Q6 as needed for pain 03/17/2017 04/08/2017 Inactive Seroquel 100 mg tablet RxNorm: 192752 1 TABLET(S) PO BID 201603/06/2018 Inactive TAKE 1 TABLET BY MOUTH TWICE DAILY Valium 10 mg tablet RxNorm: 337831 1 Tablet(s) QID as needed 03/05/2017 05/03/2017 Inactive Claritin-D 12 Hour 5 mg-120 mg tablet,extended release RxNorm: 5785911 Tablet(s) as needed TAKE 1 TABLET BY MOUTH TWICE DAILY NEEDED 201604/13/2018 Inactive pantoprazole 40 mg tablet,delayed release RxNorm: 458978 TAKE 1 TABLET BY MOUTH EVERY DAY 02/26/2017 08/16/2017 Inactive tramadol 50 mg tablet RxNorm: 459162 1-2 Tablet(s) PO TID as needed 02/17/2017 05/17/2017 Inactive hydrocodone 10 mg-acetaminophen 325 mg tablet RxNorm: 857482 1-2 Tablet(s) PO Q6 as needed for pain 02/17/2017 03/11/2017 Inactive Valium 10 mg tablet RxNorm: 757445 1 Tablet(s) QID as needed 02/02/2017 03/03/2017 Inactive (Response to an electronic controlled substance refill request - RxReferenceNumber: [id number]|1|0|1) nystatin 100,000 unit/gram topical powder RxNorm: 105815 1 APPLICATION TOP QID UNTIL HEALED 01/21/2017 No Stop Date Active Advair Diskus 250 mcg-50 mcg/dose powder for inhalation RxNorm: 4009369 1 Puff(s) INH BID 01/21/2017 05/20/2017 Inactive hydrocodone 10 mg-acetaminophen 325 mg tablet RxNorm: 946120 1-2 Tablet(s) PO Q6 as needed for pain 01/21/2017 02/11/2017 Inactive metoprolol tartrate 25 mg tablet RxNorm: 520321 TABLET(S) 1/2 TABLET(S) PO BID TAKE 1/2 TABLET BY MOUTH TWICE DAILY 01/18/2017 07/06/2017 Inactive Effexor XR 150 mg capsule,extended release RxNorm: 252828 1 CAPSULE(S) PO BID 01/11/2017 07/06/2017 Inactive TAKE 1 CAPSULE BY MOUTH TWICE DAILY Effexor XR 150 mg capsule,extended release RxNorm: 624487 1 Capsule(s) PO BID 1 CAPSULE(S) PO BID 01/08/2017 07/06/2017 Inactive TAKE 1 CAPSULE BY MOUTH TWICE DAILY nystatin 100,000 unit/gram topical powder RxNorm: 937882 1 APPLICATION TOP QID UNTIL HEALED 12/17/2016 01/20/2017 Inactive hydrocodone 10 mg-acetaminophen 325 mg tablet RxNorm: 878093 1-2 Tablet(s) PO Q6 as needed for pain 12/17/2016 01/07/2017 Inactive Claritin-D 12 Hour 5 mg-120 mg tablet,extended release RxNorm: 6019112 Tablet(s) as needed TAKE 1 TABLET BY MOUTH TWICE DAILY NEEDED 201602/12/2017 Inactive Lipitor 20 mg tablet RxNorm: 969662 1 TABLET(S) PO DAILY 201606/07/2017 Inactive TAKE ONE TABLET BY MOUTH EVERY NIGHT AT BEDTIME Advair Diskus 250 mcg-50 mcg/dose powder for inhalation RxNorm: 6066428 1 Puff(s) INH BID 11/26/2016 01/20/2017 Inactive Valium 10 mg tablet RxNorm: 957630 1 Tablet(s) QID as needed 11/24/2016 01/22/2017 Inactive (Response to an electronic controlled substance refill request - RxReferenceNumber: [id number]|1|0|1) cyanocobalamin (vit B-12) 1,000 mcg/mL injection solution RxNorm: 758359 1 Milliliter(s) Inj 11/17/2016 11/17/2016 Inactive tramadol 50 mg tablet RxNorm: 609372 1-2 Tablet(s) PO TID as needed 11/06/2016 10/19/2017 Inactive hydrocodone 10 mg-acetaminophen 325 mg tablet RxNorm: 317135 1-2 Tablet(s) PO Q6 as needed for pain 11/06/2016 11/27/2016 Inactive nystatin 100,000 unit/gram topical powder RxNorm: 765115 1 Application TOP QID until healed 10/27/2016 12/16/2016 Inactive cyanocobalamin (vit B-12) 1,000 mcg/mL injection solution RxNorm: 449228 1 Milliliter(s) Inj 10/12/2016 10/12/2016 Inactive trazodone 100 mg tablet RxNorm: 219159 Tablet(s) TAKE 2 TABLETS BY MOUTH EVERY NIGHT AT BEDTIME 09/24/2016 03/22/2017 Inactive Valium 10 mg tablet RxNorm: 909435 1 Tablet(s) QID as needed 09/24/2016 11/22/2016 Inactive (Response to an electronic controlled substance refill request - RxReferenceNumber: [id number]|1|0|1) Savella 100 mg tablet RxNorm: 866343 TABLET(S) PO TAKE 1 TABLET BY MOUTH DAILY 09/18/2016 08/30/2017 Inactive pantoprazole 40 mg tablet,delayed release RxNorm: 862161 TAKE 1 TABLET BY MOUTH EVERY DAY 09/18/2016 02/25/2017 Inactive cyanocobalamin (vit B-12) 1,000 mcg/mL injection solution RxNorm: 850084 1 Milliliter(s) Inj 09/11/2016 09/11/2016 Inactive hydrocodone 10 mg-acetaminophen 325 mg tablet RxNorm: 548215 1-2 Tablet(s) PO Q6 as needed for pain 08/24/2016 11/05/2016 Inactive (Response to an electronic controlled substance refill request - RxReferenceNumber: [id number]|1|0|1) Claritin-D 12 Hour 5 mg-120 mg tablet,extended release RxNorm: 5852499 Tablet(s) TAKE 1 TABLET BY MOUTH TWICE DAILY NEEDED 08/13/2016 04/13/2018 Inactive tramadol 50 mg tablet RxNorm: 889485 1-2 Tablet(s) PO TID PRN as needed 08/11/2016 11/05/2016 Inactive metoprolol tartrate 25 mg tablet RxNorm: 694019 TABLET(S) 1/2 TABLET(S) PO BID TAKE 1/2 TABLET BY MOUTH TWICE DAILY 08/10/2016 01/17/2017 Inactive pantoprazole 40 mg tablet,delayed release RxNorm: 484328 TAKE 1 TABLET BY MOUTH EVERY DAY 08/10/2016 11/05/2016 Inactive Savella 100 mg tablet RxNorm: 257267 TABLET(S) PO TAKE 1 TABLET BY MOUTH DAILY 08/10/2016 11/05/2016 Inactive Ventolin HFA 90 mcg/actuation aerosol inhaler RxNorm: 941800 1 OR 2 PUFF(S) INH Q6 PRN NEEDED 08/07/2016 02/02/2017 Inactive Diflucan 150 mg tablet RxNorm: 327294 1 Tablet(s) PO daily 08/201608/13/2016 Inactive nystatin 100,000 unit/mL oral suspension RxNorm: 395553 5 Milliliter(s) PO QID 08/07/2016 08/16/2016 Inactive hydrocodone 10 mg-acetaminophen 325 mg tablet RxNorm: 158820 1-2 Tablet(s) PO Q6 as needed for pain 08/04/2016 08/23/2016 Inactive (Response to an electronic controlled substance refill request - RxReferenceNumber: [id number]|1|0|1) Valium 10 mg tablet RxNorm: 642792 1 Tablet(s) QID as needed 07/20/2016 09/17/2016 Inactive (Response to an electronic controlled substance refill request - RxReferenceNumber: [id number]|1|0|1) tramadol 50 mg tablet RxNorm: 845905 1-2 Tablet(s) PO TID PRN as needed 07/15/2016 11/05/2016 Inactive ok to give 1 month aamsto=153 tablets cyanocobalamin (vit B-12) 1,000 mcg/mL injection solution RxNorm: 446565 Milliliter(s) Inj 07/03/2016 07/03/2016 Inactive Seroquel 100 mg tablet RxNorm: 577227 1 TABLET(S) PO BID 201603/15/2017 Inactive TAKE 1 TABLET BY MOUTH TWICE DAILY hydrocodone 10 mg-acetaminophen 325 mg tablet RxNorm: 571391 1-2 Tablet(s) PO Q6 as needed for pain 06/26/2016 08/03/2016 Inactive (Response to an electronic controlled substance refill request - RxReferenceNumber: [id number]|1|0|1) Valium 10 mg tablet RxNorm: 070273 1 Tablet(s) QID as needed 05/11/2016 07/09/2016 Inactive (Response to an electronic controlled substance refill request - RxReferenceNumber: [id number]|1|0|1) tramadol 50 mg tablet RxNorm: 188033 1-2 Tablet(s) PO TID PRN as needed 05/11/2016 07/08/2016 Inactive ok to give 1 month qqrmmi=759 tablets cyclobenzaprine 10 mg tablet RxNorm: 873146 TAKE 1 TABLET BY MOUTH THREE TIMES DAILY NEEDED FOR MUSCLE SPASMS 05/11/2016 05/10/2017 Inactive hydrocodone 10 mg-acetaminophen 325 mg tablet RxNorm: 692913 1-2 Tablet(s) PO Q6 as needed for pain 05/06/2016 06/25/2016 Inactive (Response to an electronic controlled substance refill request - RxReferenceNumber: [id number]|1|0|1) cyanocobalamin (vit B-12) 1,000 mcg/mL injection solution RxNorm: 245297 1 Milliliter(s) Inj 04/20/2016 04/20/2016 Inactive hydrocodone 10 mg-acetaminophen 325 mg tablet RxNorm: 838616 1-2 Tablet(s) PO Q6 as needed for pain 04/03/2016 05/05/2016 Inactive (Response to an electronic controlled substance refill request - RxReferenceNumber: [id number]|1|0|1) pantoprazole 40 mg tablet,delayed release RxNorm: 277078 TAKE 1 TABLET BY MOUTH EVERY DAY 04/02/2016 08/09/2016 Inactive Claritin-D 12 Hour 5 mg-120 mg tablet,extended release RxNorm: 3544523 Tablet(s) TAKE 1 TABLET BY MOUTH TWICE DAILY NEEDED 04/02/2016 11/05/2016 Inactive hydrocodone 10 mg-acetaminophen 325 mg tablet RxNorm: 377080 1-2 Tablet(s) PO Q6 as needed for pain 03/12/2016 04/02/2016 Inactive (Response to an electronic controlled substance refill request - RxReferenceNumber: [id number]|1|0|1) Effexor XR 150 mg capsule,extended release RxNorm: 880395 1 CAPSULE(S) PO BID 03/05/2016 01/07/2017 Inactive TAKE 1 CAPSULE BY MOUTH TWICE DAILY Ventolin HFA 90 mcg/actuation aerosol inhaler RxNorm: 169267 1 OR 2 PUFF(S) INH Q6 PRN NEEDED 02/19/2016 08/06/2016 Inactive cyanocobalamin (vit B-12) 1,000 mcg/mL injection solution RxNorm: 498983 Milliliter(s) Inj 02/13/2016 02/13/2016 Inactive hydrocodone 10 mg-acetaminophen 325 mg tablet RxNorm: 589100 1-2 Tablet(s) PO Q6 as needed for pain 02/05/2016 03/11/2016 Inactive (Response to an electronic controlled substance refill request - RxReferenceNumber: [id number]|1|0|1) Valium 10 mg tablet RxNorm: 092809 1 Tablet(s) QID as needed 02/05/2016 05/04/2016 Inactive (Response to an electronic controlled substance refill request - RxReferenceNumber: [id number]|1|0|1) tramadol 50 mg tablet RxNorm: 327178 1-2 Tablet(s) PO TID PRN as needed 02/05/2016 11/05/2016 Inactive ok to give 1 month smwynu=885 tablets hydrocodone 10 mg-acetaminophen 325 mg tablet RxNorm: 049551 1-2 Tablet(s) PO Q6 as needed for pain 01/08/2016 02/04/2016 Inactive (Response to an electronic controlled substance refill request - RxReferenceNumber: [id number]|1|0|1) metoprolol tartrate 25 mg tablet RxNorm: 483279 Tablet(s) 1/2 TABLET(S) PO BID TAKE 1/2 TABLET BY MOUTH TWICE DAILY 01/08/2016 08/09/2016 Inactive Symbicort 160 mcg-4.5 mcg/actuation HFA aerosol inhaler RxNorm: 1895471 2 INH BID 01/03/2016 11/25/2016 Inactive Symbicort 160 mcg-4.5 mcg/actuation HFA aerosol inhaler RxNorm: 0161085 1 INH daily 01/03/2016 01/02/2016 Inactive Lipitor 20 mg tablet RxNorm: 547932 1 TABLET(S) PO DAILY 201506/26/2016 Inactive TAKE ONE TABLET BY MOUTH EVERY NIGHT AT BEDTIME trazodone 100 mg tablet RxNorm: 934666 TAKE 2 TABLETS BY MOUTH EVERY NIGHT AT BEDTIME 12/30/2015 09/23/2016 Inactive Savella 100 mg tablet RxNorm: 983305 TABLET(S) PO TAKE 1 TABLET BY MOUTH DAILY 12/30/2015 08/09/2016 Inactive hydrocodone 10 mg-acetaminophen 325 mg tablet RxNorm: 343716 1-2 Tablet(s) PO Q6 as needed for pain 12/12/2015 01/07/2016 Inactive (Response to an electronic controlled substance refill request - RxReferenceNumber: [id number]|1|0|1) cyanocobalamin (vit B-12) 1,000 mcg/mL injection solution RxNorm: 292876 1 Milliliter(s) Inj 12/02/2015 12/02/2015 Inactive hydrocodone 10 mg-acetaminophen 325 mg tablet RxNorm: 032836 1-2 Tablet(s) PO Q6 as needed for pain 12/02/2015 12/11/2015 Inactive (Response to an electronic controlled substance refill request - RxReferenceNumber: [id number]|1|0|1) Claritin-D 12 Hour 5 mg-120 mg tablet,extended release RxNorm: 6156574 Tablet(s) TAKE 1 TABLET BY MOUTH TWICE DAILY 11/11/2015 11/10/2015 Inactive Claritin-D 12 Hour 5 mg-120 mg tablet,extended release RxNorm: 8093835 Tablet(s) TAKE 1 TABLET BY MOUTH TWICE DAILY NEEDED 11/11/2015 01/06/2016 Inactive tramadol 50 mg tablet RxNorm: 809696 1-2 Tablet(s) PO TID PRN as needed 11/05/2015 11/05/2016 Inactive ok to give 1 month zdstlc=825 tablets Valium 10 mg tablet RxNorm: 375486 1 Tablet(s) QID as needed 11/05/2015 02/02/2016 Inactive (Response to an electronic controlled substance refill request - RxReferenceNumber: [id number]|1|0|1) cyanocobalamin (vit B-12) 1,000 mcg/mL injection solution RxNorm: 817007 1 Milliliter(s) Inj 10/29/2015 10/29/2015 Inactive hydrocodone 10 mg-acetaminophen 325 mg tablet RxNorm: 942443 1-2 Tablet(s) PO Q6 as needed for pain 10/28/2015 12/01/2015 Inactive (Response to an electronic controlled substance refill request - RxReferenceNumber: [id number]|1|0|1) pantoprazole 40 mg tablet,delayed release RxNorm: 661624 TAKE 1 TABLET BY MOUTH EVERY DAY 10/08/2015 04/01/2016 Inactive Seroquel 100 mg tablet RxNorm: 120232 1 TABLET(S) PO BID 201506/29/2016 Inactive TAKE 1 TABLET BY MOUTH TWICE DAILY trazodone 100 mg tablet RxNorm: 397276 TAKE 2 TABLETS BY MOUTH EVERY NIGHT AT BEDTIME 10/08/2015 10/01/2016 Inactive Lipitor 20 mg tablet RxNorm: 478436 1 TABLET(S) PO DAILY 201504/04/2016 Inactive TAKE ONE TABLET BY MOUTH EVERY NIGHT AT BEDTIME hydrocodone 10 mg-acetaminophen 325 mg tablet RxNorm: 272201 1-2 Tablet(s) PO Q6 as needed for pain 09/19/2015 10/18/2015 Inactive (Response to an electronic controlled substance refill request - RxReferenceNumber: [id number]|1|0|1) Valium 10 mg tablet RxNorm: 870287 1 Tablet(s) QID as needed 09/05/2015 11/03/2015 Inactive (Response to an electronic controlled substance refill request - RxReferenceNumber: [id number]|1|0|1) Savella 100 mg tablet RxNorm: 990745 Tablet(s) PO TAKE 1 TABLET BY MOUTH DAILY 07/19/2015 11/05/2016 Inactive Zithromax Z-Lauro 250 mg tablet RxNorm: 068584 1 Tablet(s) PO UD 07/12/2015 11/04/2015 Inactive z lauro hydrocodone 10 mg-acetaminophen 325 mg tablet RxNorm: 737148 1-2 Tablet(s) PO Q6 as needed for pain 07/10/2015 08/08/2015 Inactive (Response to an electronic controlled substance refill request - RxReferenceNumber: [id number]|1|0|1) tramadol 50 mg tablet RxNorm: 718902 1-2 Tablet(s) PO TID PRN as needed 07/04/2015 11/05/2016 Inactive ok to give 1 month vkwmvd=232 tablets hydrocodone 10 mg-acetaminophen 325 mg tablet RxNorm: 171767 1-2 Tablet(s) PO Q6 as needed for pain 06/10/2015 07/09/2015 Inactive (Response to an electronic controlled substance refill request - RxReferenceNumber: [id number]|1|0|1) cyanocobalamin (vit B-12) 1,000 mcg/mL injection solution RxNorm: 946373 Milliliter(s) Inj 06/10/2015 06/10/2015 Inactive pantoprazole 40 mg tablet,delayed release RxNorm: 194989 TABLET(S) PO TAKE 1 TABLET BY MOUTH EVERY DAY 06/10/201511/05 Inactive pantoprazole 40 mg tablet,delayed release RxNorm: 333396 Tablet(s) PO TAKE 1 TABLET BY MOUTH EVERY DAY 06/06/201511/05 Inactive tramadol 50 mg tablet RxNorm: 690108 1-2 Tablet(s) PO TID PRN as needed 05/29/2015 06/27/2015 Inactive ok to give 1 month ioymwj=861 tablets tramadol 50 mg tablet RxNorm: 853249 1-2 Tablet(s) PO Q6 as needed 05/29/2015 06/09/2015 Inactive Valium 10 mg tablet RxNorm: 770013 1 Tablet(s) QID as needed 05/08/2015 07/06/2015 Inactive (Response to an electronic controlled substance refill request - RxReferenceNumber: [id number]|1|0|1) cyclobenzaprine 10 mg tablet RxNorm: 975313 TAKE 1 TABLET BY MOUTH THREE TIMES DAILY NEEDED FOR MUSCLE SPASMS 05/08/2015 05/10/2016 Inactive Effexor XR 150 mg capsule,extended release RxNorm: 016470 1 Capsule(s) PO BID 1 CAPSULE(S) PO BID 05/08/2015 11/05/2016 Inactive TAKE 1 CAPSULE BY MOUTH TWICE DAILY hydrocodone 10 mg-acetaminophen 325 mg tablet RxNorm: 284548 1-2 Tablet(s) PO Q6 as needed for pain 05/08/2015 06/06/2015 Inactive (Response to an electronic controlled substance refill request - RxReferenceNumber: [id number]|1|0|1) metoprolol tartrate 25 mg tablet RxNorm: 312036 1/2 TABLET(S) PO BID TAKE 1/2 TABLET BY MOUTH TWICE DAILY 05/06/201507/2015 Inactive Claritin-D 12 Hour 5 mg-120 mg tablet,extended release RxNorm: 2458618 TAKE 1 TABLET BY MOUTH TWICE DAILY 04/16/201506/2016 Inactive hydrocodone 10 mg-acetaminophen 325 mg tablet RxNorm: 662163 1-2 Tablet(s) PO Q6 as needed for pain 04/15/2015 05/07/2015 Inactive (Response to an electronic controlled substance refill request - RxReferenceNumber: [id number]|1|0|1) pantoprazole 40 mg tablet,delayed release RxNorm: 081942 TABLET(S) PO TAKE 1 TABLET BY MOUTH EVERY DAY 04/08/201506/06 Inactive hydrocodone 10 mg-acetaminophen 325 mg tablet RxNorm: 544697 1 Tablet(s) PO Q4 PRN TAKE 1-2 TABLETS BY MOUTH EVERY 6 HOURS NEEDED FOR PAIN 03/14/2015 04/12/2015 Inactive (Response to an electronic controlled substance refill request - RxReferenceNumber: [id number]|1|0|1) diazepam 10 mg tablet RxNorm: 040047 1 Tablet(s) TID TAKE 1 TABLET BY MOUTH THREE TIMES DAILY NEEDED 02/08/20152016 Inactive (Response to an electronic controlled substance refill request - RxReferenceNumber: [id number]|1|0|1) Effexor XR 150 mg capsule,extended release RxNorm: 276884 1 CAPSULE(S) PO BID 02/07/2015 05/07/2015 Inactive TAKE 1 CAPSULE BY MOUTH TWICE DAILY cyclobenzaprine 10 mg tablet RxNorm: 805391 TAKE 1 TABLET BY MOUTH THREE TIMES DAILY NEEDED FOR MUSCLE SPASMS 02/07/2015 05/07/2015 Inactive pantoprazole 40 mg tablet,delayed release RxNorm: 187344 TABLET(S) PO TAKE 1 TABLET BY MOUTH EVERY DAY 02/07/201504/07 Inactive hydrocodone 10 mg-acetaminophen 325 mg tablet RxNorm: 882524 1 Tablet(s) PO Q4 PRN TAKE 1-2 TABLETS BY MOUTH EVERY 6 HOURS NEEDED FOR PAIN 01/25/2015 02/23/2015 Inactive (Response to an electronic controlled substance refill request - RxReferenceNumber: [id number]|1|0|1) Bactroban Nasal 2 % ointment RxNorm: 645232 1 Application NASAL BID 01/10/2015 01/10/2015 Inactive mupirocin 2 % topical ointment RxNorm: 096103 1 Application TOP TID 1 APPLICATION TOP PRN 01/10/2015 01/19/2015 Inactive disregard order for nasal ointment , use on left knee trazodone 100 mg tablet RxNorm: 218488 TAKE 2 TABLETS BY MOUTH EVERY NIGHT AT BEDTIME 01/08/2015 10/07/2015 Inactive Seroquel 100 mg tablet RxNorm: 434031 1 TABLET(S) PO BID 201410/04/2015 Inactive TAKE 1 TABLET BY MOUTH TWICE DAILY cyclobenzaprine 10 mg tablet RxNorm: 461774 TAKE 1 TABLET BY MOUTH THREE TIMES DAILY NEEDED FOR MUSCLE SPASMS 01/08/2015 02/06/2015 Inactive hydrocodone 10 mg-acetaminophen 325 mg tablet RxNorm: 905541 1 Tablet(s) PO Q4 PRN TAKE 1-2 TABLETS BY MOUTH EVERY 6 HOURS NEEDED FOR PAIN 12/21/2014 01/19/2015 Inactive (Response to an electronic controlled substance refill request - RxReferenceNumber: [id number]|1|0|1) pantoprazole 40 mg tablet,delayed release RxNorm: 458469 TABLET(S) PO TAKE 1 TABLET BY MOUTH EVERY DAY 12/13/201402/06 Inactive Lipitor 20 mg tablet RxNorm: 333789 1 Tablet(s) PO daily 201409/08/2015 Inactive TAKE ONE TABLET BY MOUTH EVERY NIGHT AT BEDTIME Valium 10 mg tablet RxNorm: 062298 1 Tablet(s) QID as needed 12/12/2014 02/09/2015 Inactive (Response to an electronic controlled substance refill request - RxReferenceNumber: [id number]|1|0|1) hydrocodone 10 mg-acetaminophen 325 mg tablet RxNorm: 005171 Tablet(s) TAKE 1-2 TABLETS BY MOUTH EVERY 6 HOURS NEEDED FOR PAIN 12/12/2014 12/20/2014 Inactive ( Response to an electronic controlled substance refill request - RxReferenceNumber: [id number]|1|0|1) Lipitor 20 mg tablet RxNorm: 157860 1 Tablet(s) PO daily 201412/12/2014 Inactive TAKE ONE TABLET BY MOUTH EVERY NIGHT AT BEDTIME pantoprazole 40 mg tablet,delayed release RxNorm: 682640 TABLET(S) PO TAKE 1 TABLET BY MOUTH EVERY DAY 12/06/201411/05 Inactive Savella 100 mg tablet RxNorm: 550135 Tablet(s) PO TAKE 1 TABLET BY MOUTH DAILY 12/06/2014 07/18/2015 Inactive Lipitor 20 mg tablet RxNorm: 523224 1 Tablet(s) PO daily 201412/10/2014 Inactive TAKE ONE TABLET BY MOUTH EVERY NIGHT AT BEDTIME Valium 10 mg tablet RxNorm: 717710 TAKE 1 TABLET BY MOUTH FOUR TIMES DAILY NEEDED FOR ANXIETY 12/06/2014 12/11/2014 Inactive Valium 10 mg tablet RxNorm: 493383 1 Tablet(s) QID as needed 11/13/2014 12/11/2014 Inactive (Response to an electronic controlled substance refill request - RxReferenceNumber: [id number]|1|0|1) hydrocodone 10 mg-acetaminophen 325 mg tablet RxNorm: 347404 Tablet(s) TAKE 1-2 TABLETS BY MOUTH EVERY 6 HOURS NEEDED FOR PAIN 11/13/2014 12/11/2014 Inactive ( Response to an electronic controlled substance refill request - RxReferenceNumber: [id number]|1|0|1) hydrocodone 10 mg-acetaminophen 325 mg tablet RxNorm: 165795 Tablet(s) TAKE 1-2 TABLETS BY MOUTH EVERY 6 HOURS NEEDED FOR PAIN 11/08/2014 11/12/2014 Inactive ( Response to an electronic controlled substance refill request - RxReferenceNumber: [id number]|1|0|1) Valium 10 mg tablet RxNorm: 487696 1 Tablet(s) QID as needed 11/08/2014 11/12/2014 Inactive (Response to an electronic controlled substance refill request - RxReferenceNumber: [id number]|1|0|1) metoprolol tartrate 25 mg tablet RxNorm: 888252 1/2 TABLET(S) PO BID TAKE 1/2 TABLET BY MOUTH TWICE DAILY 11/08/2014 Inactive Valium 10 mg tablet RxNorm: 949475 TAKE 1 TABLET BY MOUTH FOUR TIMES DAILY NEEDED FOR ANXIETY 11/06/2014 12/09/2014 Inactive Vitamin D2 50,000 unit capsule RxNorm: 626508 1 Capsule(s) PO QW 10/24/2014 10/23/2014 Inactive Vitamin D2 50,000 unit capsule RxNorm: 456820 1 Capsule(s) PO QW x 8 weeks 10/24/2014 12/22/2014 Inactive Entyvio 300 mg intravenous solution RxNorm: 9905285 IV 2014 No Stop Date Active hydrocodone 10 mg-acetaminophen 325 mg tablet RxNorm: 087258 Tablet(s) TAKE 1-2 TABLETS BY MOUTH EVERY 6 HOURS NEEDED FOR PAIN 10/05/2014 11/03/2014 Inactive ( Response to an electronic controlled substance refill request - RxReferenceNumber: [id number]|1|0|1) Valium 10 mg tablet RxNorm: 959415 TAKE 1 TABLET BY MOUTH EVERY 8 HOURS NEEDED 10/05/2014 11/03/2014 Inactive (Response to an electronic controlled substance refill request - RxReferenceNumber: [id number]|1|0|1) Valium 10 mg tablet RxNorm: 094089 1 Tablet(s) PO QID as needed TAKE 1 TABLET BY MOUTH 10/05/2014 11/05/2016 Inactive (Response to an electronic controlled substance refill request - RxReferenceNumber: [id number]|1|0|1) Valium 10 mg tablet RxNorm: 991186 TAKE 1 TABLET BY MOUTH THREE TIMES DAILY NEEDED 09/04/2014 10/03/2014 Inactive (Response to an electronic controlled substance refill request - RxReferenceNumber: [id number]|1|0|1) Valium 10 mg tablet RxNorm: 005297 1 Tablet(s) PO Q8 PRN as needed 09/04/2014 11/09/2014 Inactive hydrocodone 10 mg-acetaminophen 325 mg tablet RxNorm: 051830 Tablet(s) TAKE 1-2 TABLETS BY MOUTH EVERY 6 HOURS NEEDED FOR PAIN 08/27/2014 09/25/2014 Inactive ( Response to an electronic controlled substance refill request - RxReferenceNumber: [id number]|1|0|1) Claritin-D 12 Hour 5 mg-120 mg tablet,extended release RxNorm: 3129060 1 Tablet(s ) PO BID 08/27/2014 04/16/2015 Inactive Ventolin HFA 90 mcg/actuation aerosol inhaler RxNorm: 512802 1 or 2 Puff(s) INH Q6 PRN as needed 08/09/2014 03/06/2015 Inactive pantoprazole 40 mg tablet,delayed release RxNorm: 462973 Tablet(s) PO TAKE 1 TABLET BY MOUTH EVERY DAY 08/09/201408/08 Inactive pantoprazole 40 mg tablet,delayed release RxNorm: 029007 TAKE 1 TABLET BY MOUTH EVERY DAY 08/09/2014 11/05/2016 Inactive diazepam 10 mg tablet RxNorm: 651401 TAKE 1 TABLET BY MOUTH THREE TIMES DAILY NEEDED 07/02/2014 07/31/2014 Inactive (Response to an electronic controlled substance refill request - RxReferenceNumber: [id number]|1|0|1) Valium 10 mg tablet RxNorm: 529344 1 Tablet(s) PO Q8 PRN as needed 07/02/2014 07/01/2014 Inactive hydrocodone 10 mg-acetaminophen 325 mg tablet RxNorm: 928161 Tablet(s) TAKE 1-2 TABLETS BY MOUTH EVERY 6 HOURS NEEDED FOR PAIN 06/14/2014 07/13/2014 Inactive ( Response to an electronic controlled substance refill request - RxReferenceNumber: [id number]|1|0|1) diazepam 10 mg tablet RxNorm: 500596 TAKE 1 TABLET BY MOUTH THREE TIMES DAILY NEEDED 05/29/2014 06/27/2014 Inactive (Response to an electronic controlled substance refill request - RxReferenceNumber: [id number]|1|0|1) diazepam 10 mg tablet RxNorm: 107457 Tablet(s) PO TAKE 1 TABLET BY MOUTH THREE TIMES DAILY NEEDED 05/29/20142013 Inactive (Appended: Controlled substance eRx refill - RxReferenceNumber: [id number]|1|0|1) hydrocodone 10 mg-acetaminophen 325 mg tablet RxNorm: 428652 Tablet(s) TAKE 1-2 TABLETS BY MOUTH EVERY 6 HOURS NEEDED FOR PAIN 05/17/2014 06/13/2014 Inactive ( Response to an electronic controlled substance refill request - RxReferenceNumber: [id number]|1|0|1) diazepam 10 mg tablet RxNorm: 961242 Tablet(s) PO TAKE 1 TABLET BY MOUTH THREE TIMES DAILY NEEDED 04/27/20142013 Inactive (Appended: Controlled substance eRx refill - RxReferenceNumber: [id number]|1|0|1) Anucort-HC 25 mg suppository RxNorm: 2461174 1 SUPPOSITORY RTL QDAY PRN NEEDED 04/03/2014 06/01/2014 Inactive metoprolol tartrate 25 mg tablet RxNorm: 248382 1/2 TABLET(S) PO BID TAKE 1/2 TABLET BY MOUTH TWICE DAILY 04/03/201408/2014 Inactive Anucort-HC 25 mg suppository RxNorm: 7238153 1 SUPPOSITORY RTL QDAY PRN NEEDED 04/03/2014 06/01/2014 Inactive Seroquel 100 mg tablet RxNorm: 040023 1 TABLET(S) PO BID 201312/28/2014 Inactive TAKE 1 TABLET BY MOUTH TWICE DAILY Anucort-HC 25 mg suppository RxNorm: 2443652 1 SUPPOSITORY RTL QDAY PRN NEEDED 04/03/2014 06/01/2014 Inactive hydrocodone 10 mg-acetaminophen 325 mg tablet RxNorm: 301750 Tablet(s) TAKE 1-2 TABLETS BY MOUTH EVERY 6 HOURS NEEDED FOR PAIN 03/22/2014 04/20/2014 Inactive ( Response to an electronic controlled substance refill request - RxReferenceNumber: [id number]|1|0|1) Claritin-D 12 Hour 5 mg-120 mg tablet,extended release RxNorm: 8107674 1 Tablet(s ) PO BID 03/22/2014 2014 Inactive diazepam 10 mg tablet RxNorm: 926353 TAKE 1 TABLET BY MOUTH THREE TIMES DAILY NEEDED 03/19/2014 04/16/2014 Inactive (Response to an electronic controlled substance refill request - RxReferenceNumber: [id number]|1|0|1) Lipitor 20 mg tablet RxNorm: 117956 1 TABLET(S) PO DAILY 201312/05/2014 Inactive TAKE ONE TABLET BY MOUTH EVERY NIGHT AT BEDTIME Effexor XR 150 mg capsule,extended release RxNorm: 272076 1 CAPSULE(S) PO BID 03/01/2014 01/24/2015 Inactive TAKE 1 CAPSULE BY MOUTH TWICE DAILY Claritin-D 12 Hour 5 mg-120 mg tablet,extended release RxNorm: 1703674 1 Tablet(s ) PO BID 02/19/2014 03/21/2014 Inactive cyanocobalamin (vit B-12) 1,000 mcg/mL injection solution RxNorm: 165250 Milliliter(s) Inj 02/15/2014 02/15/2014 Inactive hydrocodone 10 mg-acetaminophen 325 mg tablet RxNorm: 184740 1 Tablet(s) PO Q6 PRN TAKE ONE TO TWO TABLETS BY MOUTH EVERY 6 HOURS NEEDED FOR PAIN 01/30/2014 01/30/2014 Inactive (Response to an electronic controlled substance refill request - RxReferenceNumber: [id number]|1|0|1) hydrocodone 10 mg-acetaminophen 325 mg tablet RxNorm: 664820 TAKE 1-2 TABLETS BY MOUTH EVERY 6 HOURS NEEDED FOR PAIN 01/30/2014 02/19/2014 Inactive (Response to an electronic controlled substance refill request - RxReferenceNumber: [id number]| [id number]|1|0|1) cyanocobalamin (vit B-12) 1,000 mcg/mL injection kit RxNorm: 495322 1 Milliliter(s ) Inj 01/15/2014 01/15/2014 Inactive Kenalog 40 mg/mL suspension for injection RxNorm: 3731313 1 Milliliter(s) Inj 01/15/2014 01/15/2014 Inactive Anucort-HC 25 mg suppository RxNorm: 3673090 1 Suppository RTL QDAY PRN as needed 01/15/2014 02/13/2014 Inactive hydrocodone 10 mg-acetaminophen 325 mg tablet RxNorm: 545095 TAKE ONE TO TWO TABLETS BY MOUTH EVERY 6 HOURS NEEDED FOR PAIN 12/29/2013 01/18/2014 Inactive ( Response to an electronic controlled substance refill request - RxReferenceNumber: [id number]|1|0|1) trazodone 100 mg tablet RxNorm: 920679 TAKE 2 TABLETS BY MOUTH EVERY NIGHT AT BEDTIME 12/20/2013 12/14/2014 Inactive mupirocin 2 % topical ointment RxNorm: 114651 1 APPLICATION TOP PRN 12/14/2013 01/09/2015 Inactive cyanocobalamin (vit B-12) 1,000 mcg/mL injection solution RxNorm: 495596 1 Milliliter(s) Inj 12/04/2013 12/04/2013 Inactive Savella 100 mg tablet RxNorm: 387114 1 Tablet(s) PO daily TAKE 1 TABLET BY MOUTH DAILY 11/28/2013 11/05/2016 Inactive Savella 100 mg tablet RxNorm: 744678 Tablet(s) PO TAKE 1 TABLET BY MOUTH DAILY 10/27/2013 11/27/2013 Inactive mupirocin 2 % topical ointment RxNorm: 443376 1 Application TOP PRN 10/17/2013 No Stop Date Active trazodone 100 mg tablet RxNorm: 952960 Tablet(s) PO TAKE 2 TABLETS BY MOUTH EVERY NIGHT AT BEDTIME 09/26/2013 11/05/2016 Inactive cyclobenzaprine 10 mg tablet RxNorm: 310960 Tablet(s) PO TAKE ONE TABLET BY MOUTH THREE TIMES DAILY 09/26/2013 01/07/2015 Inactive diazepam 10 mg tablet RxNorm: 270649 Tablet(s) PO TAKE 1 TABLET BY MOUTH THREE TIMES DAILY NEEDED 08/15/20132013 Inactive (Appended: Controlled substance eRx refill - RxReferenceNumber: [id number]|1|0|1) diazepam 10 mg tablet RxNorm: 541688 1 Tablet(s) PO TID PRN TAKE 1 TABLET BY MOUTH THREE TIMES DAILY NEEDED 08/15/2013 Inactive (Appended: Controlled substance eRx refill - RxReferenceNumber: [id number]|1|0|1) Vitamin B-12 1,000 mcg/mL injection solution RxNorm: 023167 Milliliter(s) Inj 07/24/2013 07/24/2013 Inactive pantoprazole 40 mg tablet,delayed release RxNorm: 632560 Tablet(s) PO TAKE 1 TABLET BY MOUTH EVERY DAY 07/20/201308/08 Inactive hydrocodone 10 mg-acetaminophen 325 mg tablet RxNorm: 301499 1 or 2 Tablet(s) PO Q6 PRN limit 6 per day 06/26/20132013 Inactive (Appended: Controlled substance eRx refill - RxReferenceNumber: [id number]|1|0|1) trazodone 100 mg tablet RxNorm: 656687 Tablet(s) PO TAKE 2 TABLETS BY MOUTH EVERY NIGHT AT BEDTIME 06/26/2013 11/05/2016 Inactive pantoprazole 40 mg tablet,delayed release RxNorm: 289672 Tablet(s) PO TAKE 1 TABLET BY MOUTH EVERY DAY 06/20/201306/05 Inactive prednisone 10 mg tablets in a dose pack RxNorm: 016202 Tablet(s) PO 6-5-4-3-2-1 06/13/2013 06/12/2013 Inactive prednisone 10 mg tablets in a dose pack RxNorm: 277936 Tablet(s) PO UD 6-5-4-3-2- 1 06/13/2013 06/18/2013 Inactive Silvadene 1 % topical cream RxNorm: 356109 1 TOP daily apply thin layer to left knee daily 06/12/2013 06/18/2013 Inactive metoprolol tartrate 25 mg tablet RxNorm: 596823 1/2 Tablet(s) PO BID TAKE 1/2 TABLET BY MOUTH TWICE DAILY 05/19/2013 Inactive Lipitor 20 mg tablet RxNorm: 341317 1 Tablet(s) PO daily 201203/11/2014 Inactive TAKE ONE TABLET BY MOUTH EVERY NIGHT AT BEDTIME Vitamin B-12 1,000 mcg/mL injection solution RxNorm: 980882 1 Milliliter(s) Inj 05/10/2013 05/10/2013 Inactive hydrocodone 10 mg-acetaminophen 325 mg tablet RxNorm: 623204 1 or 2 Tablet(s) PO Q6 PRN limit 6 per day 03/16/2013 No Stop Date Active (Appended: Controlled substance eRx refill - RxReferenceNumber: [id number]|1|0|1) Seroquel 100 mg tablet RxNorm: 323029 1 Tablet(s) PO BID 201203/10/2014 Inactive TAKE 1 TABLET BY MOUTH TWICE DAILY Effexor XR 150 mg capsule,extended release RxNorm: 399387 1 Capsule(s) PO BID 03/16/2013 02/28/2014 Inactive TAKE 1 CAPSULE BY MOUTH TWICE DAILY fluconazole 150 mg tablet RxNorm: 132780 1 Tablet(s) PO daily 03/06/2013 03/12/2013 Inactive Kenalog 40 mg/mL Susp for Injection RxNorm: 1423331 Milliliter(s) Inj 03/06/2013 03/06/2013 Inactive Ventolin HFA 90 mcg/actuation Aerosol Inhaler RxNorm: 1465794 1 or 2 Puff(s) INH Q6 PRN 02/20/2013 03/16/2014 Inactive cyanocobalamin (vitamin B-12) 1,000 mcg/mL Injection RxNorm: 777207 Milliliter(s) Inj 02/20/2013 02/20/2013 Inactive Valium 10 mg tablet RxNorm: 399547 1 Tablet(s) PO Q8 PRN 01/3102/24/2014 Inactive Kenalog 40 mg/mL Susp for Injection RxNorm: 9572141 Milliliter(s) Inj 12/26/2012 12/26/2012 Inactive cyanocobalamin (vitamin B-12) 1,000 mcg/mL Injection RxNorm: 936649 Milliliter(s) Inj 12/21/2012 12/21/2012 Inactive hydrocodone 10 mg-acetaminophen 325 mg tablet RxNorm: 9750181 1 or 2 Tablet(s) PO Q6 PRN limit 6 per day 11/25/20122012 Inactive (Appended: Controlled substance eRx refill - RxReferenceNumber: [id number]|1|0|1) diazepam 10 mg tablet RxNorm: 442876 1 Tablet(s) PO TID PRN 08/15/2013 Inactive TAKE 1 TABLET BY MOUTH THREE TIMES DAILY NEEDED (Appended: Controlled substance eRx refill - RxReferenceNumber: [id number]|1|0|1) diazepam 10 mg tablet RxNorm: 680658 Tablet(s) PO TAKE 1 TABLET BY MOUTH THREE TIMES DAILY NEEDED 11/21/20122013 Inactive (Appended: Controlled substance eRx refill - RxReferenceNumber: [id number]|1|0|1) Vitamin B-12 1,000 mcg/mL Injection RxNorm: 670424 1 Milliliter(s) Inj 11/16/2012 11/16/2012 Inactive hydrocodone 10 mg-acetaminophen 325 mg tablet RxNorm: 2467631 1 or 2 Tablet(s) PO Q6 PRN limit 6 per day 10/24/20122012 Inactive (Appended: Controlled substance eRx refill - RxReferenceNumber: [id number]|1|0|1) hydrocodone 10 mg-acetaminophen 325 mg tablet RxNorm: 6633897 Tablet(s) PO limit 5x days 10/24/2012 10/23/2012 Inactive (Appended: Controlled substance eRx refill - RxReferenceNumber: [id number]|1|0|1) Savella 100 mg tablet RxNorm: 793537 Tablet(s) PO TAKE 1 TABLET BY MOUTH DAILY 10/14/2012 12/05/2014 Inactive Tubersol 5 tub. unit/0.1 mL Intradermal RxNorm: 174126 Milliliter(s) IDrm 09/26/2012 09/26/2012 Inactive hydrocodone 10 mg-acetaminophen 325 mg tablet RxNorm: 9045798 1 Tablet(s) PO Q4 PRN q 4 hr prn limit 5 per day 09/19/2012 No Stop Date Active (Appended: Controlled substance eRx refill - RxReferenceNumber: [id number]|1|0|1) hydrocodone 10 mg-acetaminophen 325 mg tablet RxNorm: 9956876 Tablet(s) PO TAKE 1 TABLET BY MOUTH FOUR TIMES DAILY 09/16/2012 10/23/2012 Inactive (Appended: Controlled substance eRx refill - RxReferenceNumber: [id number]|1|0|1) cyclobenzaprine 10 mg tablet RxNorm: 305342 Tablet(s) PO TAKE ONE TABLET BY MOUTH THREE TIMES DAILY 09/16/2012 09/25/2013 Inactive hydrocodone 10 mg-acetaminophen 325 mg tablet RxNorm: 4867594 1 Tablet(s) PO Q4 PRN q 4 hr prn limit 5 per day 09/14/2012 09/19/2012 Inactive (Appended: Controlled substance eRx refill - RxReferenceNumber: [id number]|1|0|1) cyanocobalamin (vitamin B-12) 1,000 mcg/mL Injection RxNorm: 525297 1 Milliliter(s ) Inj 09/12/2012 09/12/2012 Inactive cyclobenzaprine 10 mg tablet RxNorm: 344071 Tablet(s) PO TAKE ONE TABLET BY MOUTH THREE TIMES DAILY 09/02/2012 09/15/2012 Inactive hydrocodone 10 mg-acetaminophen 325 mg tablet RxNorm: 0220853 1 Tablet(s) PO QID TAKE 1 TABLET BY MOUTH FOUR TIMES DAILY 08/23/2012 09/13/2012 Inactive (Appended: Controlled substance eRx refill - RxReferenceNumber: [id number]|1|0|1) Kenalog 40 mg/mL Susp for Injection RxNorm: 0372802 1 Milliliter(s) Inj 08/11/2012 08/11/2012 Inactive Vitamin B-12 1,000 mcg/mL Injection RxNorm: 074582 1 Milliliter(s) Inj 08/11/2012 08/11/2012 Inactive Zithromax 250 mg tablet RxNorm: 772284 Tablet(s) PO 07/21/2012 09/14/2012 Inactive please give z lauro cefdinir 300 mg capsule RxNorm: 988317 1 Capsule(s) PO BID 07/20/2012 Inactive cefdinir 300 mg capsule RxNorm: 442778 1 Capsule(s) PO BID 07/27/2012 Inactive diazepam 10 mg tablet RxNorm: 458756 1 Tablet(s) PO TID PRN 12/201211/22/2012 Inactive TAKE 1 TABLET BY MOUTH THREE TIMES DAILY NEEDED (Appended: Controlled substance eRx refill - RxReferenceNumber: [id number]|1|0|1) Vitamin B-12 1,000 mcg/mL Injection RxNorm: 328792 1 Milliliter(s) Inj 07/13/2012 07/13/2012 Inactive pantoprazole 40 mg tablet,delayed release RxNorm: 841021 1 Tablet(s) PO daily 06/14/2012 06/13/2012 Inactive pantoprazole 40 mg tablet,delayed release RxNorm: 904343 1 Tablet(s) PO daily 06/14/2012 06/19/2013 Inactive trazodone 100 mg tablet RxNorm: 284703 Tablet(s) PO TAKE 2 TABLETS BY MOUTH EVERY NIGHT AT BEDTIME 06/06/2012 11/05/2016 Inactive hydrocodone 10 mg-acetaminophen 325 mg tablet RxNorm: 3986868 Tablet(s) PO TAKE 1 TABLET BY MOUTH FOUR TIMES DAILY 05/24/2012 08/23/2012 Inactive (Appended: Controlled substance eRx refill - RxReferenceNumber: [id number]|1|0|1) Symbicort 160 mcg-4.5 mcg/actuation HFA Aerosol Inhaler RxNorm: 1978161 1 INH daily 05/24/2012 05/23/2012 Inactive this is an increase in dosing Symbicort 160 mcg-4.5 mcg/actuation HFA Aerosol Inhaler RxNorm: 5415135 1 INH daily 05/24/2012 06/17/2013 Inactive this is an increase in dosing Ventolin HFA 90 mcg/actuation Aerosol Inhaler RxNorm: 619531 1 or 2 Puff(s) INH Q6 PRN 05/24/2012 05/23/2012 Inactive Ventolin HFA 90 mcg/actuation Aerosol Inhaler RxNorm: 639914 1 or 2 Puff(s) INH Q6 PRN 05/24/2012 02/19/2013 Inactive metoprolol tartrate 25 mg tablet RxNorm: 487248 Tablet(s) PO TAKE 1/2 TABLET BY MOUTH TWICE DAILY 05/24/2012 05/18/2013 Inactive hydrocodone-acetaminophen 10 mg-325 mg tablet RxNorm: 8309071 Tablet(s) PO TAKE 1 TABLET BY MOUTH FOUR TIMES DAILY 05/17/2012 05/17/2012 Inactive (Appended: Controlled substance eRx refill - RxReferenceNumber: [id number]|1|0|1) diazepam 10 mg tablet RxNorm: 377796 Tablet(s) PO 05/03/2012 07/13/2012 Inactive TAKE 1 TABLET BY MOUTH THREE TIMES DAILY NEEDED (Appended: Controlled substance eRx refill - RxReferenceNumber: [id number]|1|0|1) metoprolol tartrate 25 mg tablet RxNorm: 537612 Tablet(s) PO 11/05/2016 Inactive TAKE 1/2 TABLET BY MOUTH TWICE DAILY hydrocodone-acetaminophen 10 mg-325 mg tablet RxNorm: 6087607 Tablet(s) PO 04/11/2012 05/17/2012 Inactive TAKE 1 TABLET BY MOUTH FOUR TIMES DAILY (Appended: Controlled substance eRx refill - RxReferenceNumber: [id number]|1|0|1) ProAir HFA 90 mcg/actuation Aerosol Inhaler RxNorm: 190538 2 INH Q4 PRN 04/05/2012 04/29/2013 Inactive Symbicort 80 mcg-4.5 mcg/actuation HFA Aerosol Inhaler RxNorm: 7536174 2 INH BID 04/05/2012 04/04/2012 Inactive Symbicort 80 mcg-4.5 mcg/actuation HFA Aerosol Inhaler RxNorm: 5210172 2 INH BID 04/05/2012 05/23/2012 Inactive ProAir HFA 90 mcg/actuation Aerosol Inhaler RxNorm: 989345 2 INH Q4 PRN 04/05/2012 04/04/2012 Inactive diazepam 10 mg tablet RxNorm: 823822 Tablet(s) PO 03/17/2012 05/03/2012 Inactive TAKE 1 TABLET BY MOUTH THREE TIMES DAILY NEEDED (Appended: Controlled substance eRx refill - RxReferenceNumber: [id number]|1|0|1) Effexor XR 150 mg capsule,extended release RxNorm: 507957 Capsule(s) PO 03/13/2012 03/15/2013 Inactive TAKE 1 CAPSULE BY MOUTH TWICE DAILY fluconazole 150 mg tablet RxNorm: 198339 1 Tablet(s) PO daily 03/11/2012 03/17/2012 Inactive Lipitor 20 mg tablet RxNorm: 895402 Tablet(s) PO 02/25/2012 03/20/2013 Inactive TAKE ONE TABLET BY MOUTH EVERY NIGHT AT BEDTIME Seroquel 100 mg tablet RxNorm: 022383 1 Tablet(s) PO BID 201102/18/2013 Inactive TAKE 1 TABLET BY MOUTH TWICE DAILY hydrocodone-acetaminophen 10 mg-325 mg tablet RxNorm: 9550420 Tablet(s) PO 02/25/2012 04/11/2012 Inactive TAKE 1 TABLET BY MOUTH FOUR TIMES DAILY . (Appended : Controlled substance eRx refill - RxReferenceNumber: [id number]|1|0|1) Seroquel 100 mg tablet RxNorm: 592625 1 Tablet(s) PO BID 201102/24/2012 Inactive TAKE 1 TABLET BY MOUTH TWICE DAILY Nexium 40 mg capsule,delayed release RxNorm: 298783 1 Capsule(s) PO daily 02/16/2012 06/13/2012 Inactive Effexor XR 150 mg capsule,extended release RxNorm: 956776 Capsule(s) PO 01/14/2012 11/05/2016 Inactive TAKE 1 CAPSULE BY MOUTH TWICE DAILY Kenalog 40 mg/mL Susp for Injection RxNorm: 6130949 1 Milliliter(s) Inj 01/13/2012 01/13/2012 Inactive Vitamin B-12 1,000 mcg/mL Injection RxNorm: 943333 Milliliter(s) Inj 12/21/2011 12/21/2011 Inactive hydrocodone-acetaminophen 10 mg-325 mg tablet RxNorm: 7246328 Tablet(s) PO 12/15/2011 02/25/2012 Inactive TAKE 1 TABLET BY MOUTH FOUR TIMES DAILY (Appended: Controlled substance eRx refill - RxReferenceNumber: [id number]|1|0|1) diazepam 10 mg tablet RxNorm: 773844 Tablet(s) PO 12/15/2011 03/17/2012 Inactive TAKE 1 TABLET BY MOUTH THREE TIMES DAILY NEEDED (Appended: Controlled substance eRx refill - RxReferenceNumber: [id number]|1|0|1) diazepam 10 mg Tab RxNorm: 032295 1 Tablet(s) PO daily 201112/15/2011 Inactive TAKE 1 TABLET BY MOUTH THREE TIMES DAILY (Appended: Controlled substance eRx refill - RxReferenceNumber: [id number]|1|0|1) hydrocodone-acetaminophen 10 mg-325 mg Tab RxNorm: 5268709 1 Tablet(s) PO QID 12/14/2011 12/15/2011 Inactive TAKE 1 TABLET BY MOUTH FOUR TIMES DAILY (Appended: Controlled substance eRx refill - RxReferenceNumber: [id number]|1|0|1) Seroquel 100 mg tablet RxNorm: 421937 Tablet(s) PO 11/27/2011 03/15/2013 Inactive TAKE 1 TABLET BY MOUTH TWICE DAILY hydrocodone-acetaminophen 10 mg-325 mg Tab RxNorm: 4643814 1 Tablet(s) PO QID 11/27/2011 12/13/2011 Inactive TAKE 1 TABLET BY MOUTH FOUR TIMES DAILY (Appended: Controlled substance eRx refill - RxReferenceNumber: [id number]|1|0|1) Seroquel 100 mg Tab RxNorm: 376671 1 Tablet(s) PO BID 201111/26/2011 Inactive Seroquel 100 mg tablet RxNorm: 000227 Tablet(s) PO 11/27/2011 02/16/2012 Inactive TAKE 1 TABLET BY MOUTH TWICE DAILY Nexium 40 mg capsule,delayed release RxNorm: 089994 1 Capsule(s) PO daily 11/16/2011 02/15/2012 Inactive cyanocobalamin (vitamin B-12) 1,000 mcg/mL Injection RxNorm: 936645 1 Milliliter(s ) Inj 10/30/2011 10/30/2011 Inactive hydrocodone-acetaminophen 10 mg-325 mg Tab RxNorm: 4639941 1 Tablet(s) PO QID 10/13/2011 11/23/2011 Inactive TAKE 1 TABLET BY MOUTH FOUR TIMES DAILY (Appended: Controlled substance eRx refill - RxReferenceNumber: [id number]|1|0|1) Effexor XR 150 mg capsule,extended release RxNorm: 126041 1 Capsule(s) PO BID 10/12/2011 01/09/2012 Inactive Fish Oil 1,000 mg Cap RxNorm: 1 Capsule(s) PO QID 10/02/2011 No Stop Date Active Vitamin B-12 1,000 mcg/mL Injection RxNorm: 347630 Milliliter(s) Inj 10/02/2011 10/02/2011 Inactive Kenalog 40 mg/mL Susp for Injection RxNorm: 1755499 Milliliter(s) Inj 10/02/2011 10/02/2011 Inactive diazepam 10 mg Tab RxNorm: 081793 1 Tablet(s) PO daily 201112/13/2011 Inactive TAKE 1 TABLET BY MOUTH THREE TIMES DAILY (Appended: Controlled substance eRx refill - RxReferenceNumber: [id number]|1|0|1) Vitamin B-12 1,000 mcg/mL Injection RxNorm: 665894 Milliliter(s) Inj 09/01/2011 09/01/2011 Inactive hydrocodone-acetaminophen 10 mg-325 mg Tab RxNorm: 1513054 1 Tablet(s) PO QID 08/25/2011 10/05/2011 Inactive TAKE 1 TABLET BY MOUTH FOUR TIMES DAILY (Appended: Controlled substance eRx refill - RxReferenceNumber: [id number]|1|0|1) diazepam 10 mg Tab RxNorm: 526825 Tablet(s) PO 08/10/2011 No Stop Date Active TAKE 1 TABLET BY MOUTH THREE TIMES DAILY (Appended: Controlled substance eRx refill - RxReferenceNumber: [id number]|1|0|1) Vitamin B-12 1,000 mcg/mL Injection RxNorm: 065354 Milliliter(s) Inj 08/03/2011 08/03/2011 Inactive fluticasone 50 mcg/actuation Nasal [place], Susp RxNorm: 3141636 2 [place] NASAL BID 07/27/2011 08/19/2012 Inactive hydrocodone-acetaminophen 10 mg-325 mg Tab RxNorm: 3499934 Tablet(s) PO 07/09/2011 08/24/2011 Inactive TAKE 1 TABLET BY MOUTH FOUR TIMES DAILY (Appended: Controlled substance eRx refill - RxReferenceNumber: [id number]|1|0|1) diazepam 10 mg Tab RxNorm: 647084 Tablet(s) PO 07/09/2011 08/09/2011 Inactive TAKE 1 TABLET BY MOUTH THREE TIMES DAILY (Appended: Controlled substance eRx refill - RxReferenceNumber: [id number]|1|0|1) diazepam 10 mg Tab RxNorm: 459955 Tablet(s) PO 07/08/2011 07/08/2011 Inactive TAKE 1 TABLET BY MOUTH THREE TIMES DAILY (Appended: Controlled substance eRx refill - RxReferenceNumber: [id number]|1|0|1) hydrocodone-acetaminophen 10 mg-325 mg Tab RxNorm: 0599939 Tablet(s) PO 07/08/2011 07/08/2011 Inactive TAKE 1 TABLET BY MOUTH FOUR TIMES DAILY (Appended: Controlled substance eRx refill - RxReferenceNumber: [id number]|1|0|1) cyclobenzaprine 10 mg tablet RxNorm: 564205 Tablet(s) PO 201109/01/2012 Inactive TAKE ONE TABLET BY MOUTH THREE TIMES DAILY Lipitor 40 mg Tab RxNorm: 713253 1 Tablet(s) PO daily 201106/16/2011 Inactive Lipitor 40 mg Tab RxNorm: 882486 1 Tablet(s) PO daily 201106/10/2012 Inactive trazodone 100 mg tablet RxNorm: 742938 Tablet(s) PO 06/02/2011 06/05/2012 Inactive TAKE 2 TABLETS BY MOUTH EVERY NIGHT AT BEDTIME diazepam 10 mg Tab RxNorm: 745041 Tablet(s) PO 05/28/2011 05/29/2011 Inactive TAKE 1 TABLET BY MOUTH THREE TIMES DAILY (Appended: Controlled substance eRx refill - RxReferenceNumber: [id number]|1|0|1) diazepam 10 mg Tab RxNorm: 262518 Tablet(s) PO 05/28/2011 07/08/2011 Inactive TAKE 1 TABLET BY MOUTH THREE TIMES DAILY (Appended: Controlled substance eRx refill - RxReferenceNumber: [id number]|1|0|1) hydrocodone-acetaminophen 10 mg-325 mg Tab RxNorm: 5854404 1 Tablet(s) PO QID 05/26/2011 07/08/2011 Inactive metoprolol tartrate 25 mg tablet RxNorm: 575346 Tablet(s) PO 04/10/2012 Inactive TAKE 1/2 TABLET BY MOUTH TWICE DAILY Savella 100 mg tablet RxNorm: 816687 Tablet(s) PO 05/14/2011 10/13/2012 Inactive TAKE 1 TABLET BY MOUTH DAILY Influenza Virus Vaccine 0.5 mL RxNorm: IM 02/23/2011 02/23/2011 Inactive B12 1000 mcg RxNorm: IM 02/23/20112010 Inactive hydrocodone-acetaminophen 10 mg-325 mg Tab RxNorm: 5729999 1 Tablet(s) PO QID 01/29/2011 01/28/2011 Inactive Restasis 0.05 % eye drops in a dropperette RxNorm: 447637 1 OPH BID No Start Date Active vitamin A-vit C-vit E-zinc-Se Tab RxNorm: 1 Tablet(s) PO daily No Start Date Active garlic extract Oral RxNorm: Oral No Start Date Active Acidophilus Tab RxNorm : 2 Tablet(s) PO QHS No Start Date Active Cranberry Concentrate Cap RxNorm: 1 Capsule(s) PO BID No Start Date Active Xopenex 1.25 mg/3 mL Neb Solution RxNorm: 403882 1 Milliliter(s) INH TID No Start Date Active niacin ER 500 mg Tab RxNorm: 704867 2 Tablet(s) PO HS No Start Date Active SenokotXTRA 17.2 mg Tab RxNorm: 1270253 Oral No Start Date Active Lotemax 0.5 % eye ointment RxNorm: 3076498 1 OPH QHS No Start Date Active Gaviscon Extra Strength Oral RxNorm: Oral No Start Date Active melatonin 3 mg Tab RxNorm: 273607 1 Tablet(s) PO QHS No Start Date Active Voltaren 1 % Topical Gel RxNorm: 205283 4 Gram(s) TOP QID No Start Date Active Vitamin D 1,000 unit Cap RxNorm: 627078 1 Capsule(s) PO QHS No Start Date Active Mucinex DM 30 mg-600 mg 12 hr Tab RxNorm: 8370610 1 Tablet(s) PO BID No Start Date Active calcium citrate 200 mg (950 mg) Tab RxNorm: 316081 1 Tablet(s) PO QID No Start Date Active valerian 530 mg Cap RxNorm: 2 Capsule(s) PO QHS No Start Date Active Anucort-HC 25 mg Suppository RxNorm: 4752476 1 Suppository RTL QDAY PRN No Start Date 01/14/2014 Inactive Nexium 40 mg Capsule, delayed release RxNorm: 809521 1 Capsule(s) PO daily No Start Date 11/15/2011 Inactive Lipitor 20 mg tablet RxNorm: 261768 1 Tablet(s) PO QHS No Start Date 02/25/2012 Inactive mupirocin 2 % topical ointment RxNorm: 892548 1 Application TOP PRN No Start Date 10/16/2013 Inactive fluconazole 150 mg tablet RxNorm: 412239 1 Tablet(s) PO daily No Start Date 03/10/2012 Inactive Fish Oil 1,000 mg Cap RxNorm: 1 Capsule(s) PO TID No Start Date 10/01/2011 Inactive hydrocodone-acetaminophen 10 mg-325 mg Tab RxNorm: 4931565 1 Tablet(s) PO QID No Start Date 05/25/2011 Inactive Zithromax 250 mg tablet RxNorm: 378122 Tablet(s) PO No Start Date 07/20/2012 Inactive please give z lauro prednisone 10 mg tablet RxNorm: 652654 Tablet(s) PO taper. 6-5-4-3-2-1 # 21 No Start Date 09/16/2017 Inactive fluticasone 50 mcg/actuation Nasal [place], Susp RxNorm: 8620285 2 [place] NASAL BID No Start Date 07/26/2011 Inactive Seroquel 100 mg Tab RxNorm: 951949 1 Tablet(s) PO BID No Start Date 11/26/2011 Inactive nystatin 100,000 unit/gram topical powder RxNorm: 188668 1 Application TOP QID until healed No Start Date 10/26/2016 Inactive Savella 100 mg Tab RxNorm: 551791 1 Tablet(s) PO daily No Start Date 05/13/2011 Inactive cyclobenzaprine 10 mg Tab RxNorm: 204903 1 Tablet(s) PO TID No Start Date 07/05/2011 Inactive metoprolol tartrate 25 mg Tab RxNorm: 548169 1/2 Tablet(s) PO BID No Start Date 05/25/2011 Inactive trazodone 100 mg Tab RxNorm: 614429 2 Tablet(s) PO QHS No Start Date 06/01/2011 Inactive Zithromax Z-Lauro 250 mg tablet RxNorm: 759468 1 Tablet(s) PO UD No Start Date 07/11/2015 Inactive z lauro Effexor XR 150 mg 24 hr Cap RxNorm: 821462 1 Capsule(s) PO BID No Start Date 10/11/2011 Inactive diazepam 10 mg Tab RxNorm: 892156 1 Tablet(s) PO TID No Start Date 05/28/2011 Inactive tramadol 50 mg tablet RxNorm: 395366 1-2 Tablet(s) PO Q6 as needed No Start Date 05/28/2015 Inactive Medication Administered Medication Codes Instructions Start Date Status cyanocobalamin (vit B-12) 1,000 mcg/mL injection solution RxNorm: 688836 1Milliliter 03/10/2018 No longer Active cyanocobalamin (vit B-12) 1,000 mcg/mL injection solution RxNorm: 382920 1Milliliter 10/19/2017 No longer Active cyanocobalamin (vit B-12) 1,000 mcg/mL injection solution RxNorm: 095458 1Milliliter 08/19/2017 No longer Active cyanocobalamin (vit B-12) 1,000 mcg/mL injection solution RxNorm: 770331 1Milliliter 07/06/2017 No longer Active cyanocobalamin (vit B-12) 1,000 mcg/mL injection solution RxNorm: 085601 1Milliliter 04/27/2017 No longer Active cyanocobalamin (vit B-12) 1,000 mcg/mL injection solution RxNorm: 643394 1Milliliter 11/17/2016 No longer Active cyanocobalamin (vit B-12) 1,000 mcg/mL injection solution RxNorm: 220110 1Milliliter 10/12/2016 No longer Active cyanocobalamin (vit B-12) 1,000 mcg/mL injection solution RxNorm: 210831 1Milliliter 09/11/2016 No longer Active cyanocobalamin (vit B-12) 1,000 mcg/mL injection solution RxNorm: 926307 Milliliter 07/03/2016 No longer Active cyanocobalamin (vit B-12) 1,000 mcg/mL injection solution RxNorm: 379521 1Milliliter 04/20/2016 No longer Active cyanocobalamin (vit B-12) 1,000 mcg/mL injection solution RxNorm: 549709 Milliliter 02/13/2016 No longer Active cyanocobalamin (vit B-12) 1,000 mcg/mL injection solution RxNorm: 902086 1Milliliter 12/02/2015 No longer Active cyanocobalamin (vit B-12) 1,000 mcg/mL injection solution RxNorm: 807563 1Milliliter 10/29/2015 No longer Active cyanocobalamin (vit B-12) 1,000 mcg/mL injection solution RxNorm: 590592 Milliliter 06/10/2015 No longer Active cyanocobalamin (vit B-12) 1,000 mcg/mL injection solution RxNorm: 869519 Milliliter 02/15/2014 No longer Active cyanocobalamin (vit B-12) 1,000 mcg/mL injection kit RxNorm : 595508 1Milliliter 01/15/2014 No longer Active Kenalog 40 mg/mL suspension for injection RxNorm: 4998705 1Milliliter 01/15/2014 No longer Active cyanocobalamin (vit B-12) 1,000 mcg/mL injection solution RxNorm: 517780 1Milliliter 12/04/2013 No longer Active Vitamin B-12 1,000 mcg/mL injection solution RxNorm: 963488 Milliliter 07/24/2013 No longer Active Vitamin B-12 1,000 mcg/mL injection solution RxNorm: 891244 1Milliliter 05/10/2013 No longer Active Kenalog 40 mg/mL Susp for Injection RxNorm: 7099363 Milliliter 03/06/2013 No longer Active cyanocobalamin (vitamin B-12) 1,000 mcg/mL Injection RxNorm : 012249 Milliliter 02/20/2013 No longer Active Kenalog 40 mg/mL Susp for Injection RxNorm: 6760931 Milliliter 12/26/2012 No longer Active cyanocobalamin (vitamin B-12) 1,000 mcg/mL Injection RxNorm : 286413 Milliliter 12/21/2012 No longer Active Vitamin B-12 1,000 mcg/mL Injection RxNorm: 988062 1Milliliter 11/16/2012 No longer Active Tubersol 5 tub. unit/0.1 mL Intradermal RxNorm: 261230 Milliliter 09/26/2012 No longer Active cyanocobalamin (vitamin B-12) 1,000 mcg/mL Injection RxNorm : 246860 1Milliliter 09/12/2012 No longer Active Kenalog 40 mg/mL Susp for Injection RxNorm: 4877703 1Milliliter 08/11/2012 No longer Active Vitamin B-12 1,000 mcg/mL Injection RxNorm: 904273 1Milliliter 08/11/2012 No longer Active Vitamin B-12 1,000 mcg/mL Injection RxNorm: 328830 1Milliliter 07/13/2012 No longer Active Kenalog 40 mg/mL Susp for Injection RxNorm: 8027497 1Milliliter 01/13/2012 No longer Active Vitamin B-12 1,000 mcg/mL Injection RxNorm: 976627 Milliliter 12/21/2011 No longer Active cyanocobalamin (vitamin B-12) 1,000 mcg/mL Injection RxNorm : 051559 1Milliliter 10/30/2011 No longer Active Vitamin B-12 1,000 mcg/mL Injection RxNorm: 167688 Milliliter 10/02/2011 No longer Active Kenalog 40 mg/mL Susp for Injection RxNorm: 6000499 Milliliter 10/02/2011 No longer Active Vitamin B-12 1,000 mcg/mL Injection RxNorm: 486735 Milliliter 09/01/2011 No longer Active Vitamin B-12 1,000 mcg/mL Injection RxNorm: 296547 Milliliter 08/03/2011 No longer Active B12 1000 [...] 2011 Weight gain ICD-9: 783.1 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 10/2010 Reason For Visit Reason [...] injuries from a fall (hurts after sitting "Congolese style" abdominal pain 02/12/2011 joint complaint 01/29/2011 Results Observation Observation Code Item Item Code Result Date %Hba1C Njc629 % HbA1c 71012-7 5.8 % 07/08/2018 %Hba1C Dgw312 Gluc Ave 120 mg/dL 07/08/2018 Vitamin D 25 Oh Osh6737 VITAMIN D, 25 HYDROXY 35.57 ng/mL Cbc [...] 32.2 pg 07/08/2018 Cbc With Differential Ord2 [place]% 9.5 % 07/08/2018 Cbc With Differential Ord2 [...] 3.27 K/ul 07/08/2018 Cbc With Differential Ord2 [place] ABS# 0.8 K/ul 07/08/2018 Cbc With Differential Ord2 Eos ABS# 0.2 K/ul 07/08/2018 Cbc With Differential Ord2 Baso ABS# 0.0 K/ul 07/08/2018 Comp Metabolic Lug462 NA 140 mEq/L 07/08/2018 Comp Metabolic Kxy523 K 3.5 mEq/L 07/08/2018 Comp Metabolic Ekl855 CL 105 mEq/L 07/08/2018 Comp Metabolic Rqv107 CO2 26.0 mEq/L 07/08/2018 Comp Metabolic Gds094 ANION GAP 13 07/08/2018 Comp Metabolic Byl834 GLUCOSE 125 mg/dL 07/08/2018 Comp Metabolic Hco297 Creat 0.7 mg/dL 07/08/2018 Comp Metabolic Auc496 eGFR 97 ml/min/1.73m2 07/08/2018 Comp Metabolic Pwr615 BUN 12 mg/dL 07/08/2018 Comp Metabolic Jrk319 B/C Ratio 17.6 Ratio 07/08/2018 Comp Metabolic Wyk718 CALCIUM 9.7 mg/dL 07/08/2018 Comp Metabolic Nje276 ALK PHOS 55 U/L 07/08/2018 Comp Metabolic Idb443 AST(SGOT) 15 U/L 07/08/2018 Comp Metabolic Eqs226 ALT(SGPT) 23 U/L 07/08/2018 Comp Metabolic Svt841 BILI T 0.4 mg/dL 07/08/2018 Comp Metabolic Dqt553 ALBUMIN 4.5 g/dL 07/08/2018 Comp Metabolic Ewi933 TPRO 6.6 g/dL 07/08/2018 Comp Metabolic Wyo182 GLOB 2.1 g/dL 07/08/2018 Comp Metabolic Leq175 A/G Ratio 2.2 Ratio 07/08/2018 Comp Metabolic Bij993 Osmo 281 mOsmo 07/08/2018 B12 Ojs748 B12 597.00 pg/ml 07/08/2018 Tsh Ord6 TSH (3rd IS) 1.59 uIU/mL 07/08/2018 Comp Metabolic Pin321 NA 138 mEq/L 09/20/2017 Comp Metabolic Lbw294 K 4.1 mEq/L 09/20/2017 Comp Metabolic Kxw662 CL 101 mEq/L 09/20/2017 Comp Metabolic Iis354 CO2 25.0 mEq/L 09/20/2017 Comp Metabolic Znd471 ANION GAP 16 09/20/2017 Comp Metabolic Bii427 GLUCOSE 105 mg/dL 09/20/2017 Comp Metabolic Odz787 Creat 0.8 mg/dL 09/20/2017 Comp Metabolic Sow656 eGFR 86 ml/min/1.73m2 09/20/2017 Comp Metabolic Fdn535 BUN 24 mg/dL 09/20/2017 Comp Metabolic Rtj766 B/C Ratio 31.6 Ratio 09/20/2017 Comp Metabolic Wrj953 CALCIUM 10.0 mg/dL 09/20/2017 Comp Metabolic Irh210 ALK PHOS 63 U/L 09/20/2017 Comp Metabolic Nhd474 AST(SGOT) 28 U/L 09/20/2017 Comp Metabolic Bwl949 ALT(SGPT) 34 U/L 09/20/2017 Comp Metabolic Dqg531 BILI T 0.3 mg/dL 09/20/2017 Comp Metabolic Qvx592 ALBUMIN 4.8 g/dL 09/20/2017 Comp Metabolic Yxh146 TPRO 7.2 g/dL 09/20/2017 Comp Metabolic Jub601 GLOB 2.4 g/dL 09/20/2017 Comp Metabolic Blc324 A/G Ratio 2.0 Ratio 09/20/2017 Comp Metabolic Lla139 Osmo 280 mOsmo 09/20/2017 Urine Culture Ucult Preliminary NO Growth Day 1 09/20/2017 Urine Culture Ucult Complete NO Growth Day 2 09/20/2017 Vitamin D 25 Oh Hsl4295 VITAMIN D, 25 HYDROXY 46.43 ng/mL Comp Metabolic Yxb011 NA 143 mEq/L 08/25/2017 Comp Metabolic Ouw557 K 4.1 mEq/L 08/25/2017 Comp Metabolic Fib262 CL 102 mEq/L 08/25/2017 Comp Metabolic Ybc180 CO2 33.0 mEq/L 08/25/2017 Comp Metabolic Der068 ANION GAP 12 08/25/2017 Comp Metabolic Vqd630 GLUCOSE 99 mg/dL 08/25/2017 Comp Metabolic Wtj614 Creat 0.8 mg/dL 08/25/2017 Comp Metabolic Mzz607 eGFR 86 ml/min/1.73m2 08/25/2017 Comp Metabolic Ktx035 BUN 19 mg/dL 08/25/2017 Comp Metabolic Ksw696 B/C Ratio 25.0 Ratio 08/25/2017 Comp Metabolic Qni506 CALCIUM 9.5 mg/dL 08/25/2017 Comp Metabolic Csi428 ALK PHOS 63 U/L 08/25/2017 Comp Metabolic Ohp448 AST(SGOT) 17 U/L 08/25/2017 Comp Metabolic Pik186 ALT(SGPT) 20 U/L 08/25/2017 Comp Metabolic Vwl253 BILI T 0.3 mg/dL 08/25/2017 Comp Metabolic Hzi197 ALBUMIN 4.5 g/dL 08/25/2017 Comp Metabolic Wrm440 TPRO 6.6 g/dL 08/25/2017 Comp Metabolic Ied663 GLOB 2.1 g/dL 08/25/2017 Comp Metabolic Feo205 A/G Ratio 2.1 Ratio 08/25/2017 Comp Metabolic Fhj852 Osmo 287 mOsmo 08/25/2017 B12 Lve987 B12 904.00 pg/ml 08/25/2017 Tsh Ord6 TSH [...] 103.4 fl 08/25/2017 Cbc With Differential Ord2 [place]% 7.5 % 08/25/2017 Cbc With Differential Ord2 [...] 3.65 K/ul 08/25/2017 Cbc With Differential Ord2 [place] ABS# 0.6 K/ul 08/25/2017 Cbc With Differential Ord2 Eos ABS# 0.1 K/ul 08/25/2017 Cbc With Differential Ord2 Baso ABS# 0.0 K/ul 08/25/2017 Tsh Ord6 hTSH II 1.18 uIU/mL 10/12/2016 Comp Metabolic Frw517 NA 139 mEq/L 10/12/2016 Comp Metabolic Vjz033 K 3.5 mEq/L 10/12/2016 Comp Metabolic Pbr243 CL 102 mEq/L 10/12/2016 Comp Metabolic Mdd311 CO2 25.0 mEq/L 10/12/2016 Comp Metabolic Ixn085 ANION GAP 16 10/12/2016 Comp Metabolic Los768 GLUCOSE 84 mg/dL 10/12/2016 Comp Metabolic Dqn625 Creat 0.6 mg/dL 10/12/2016 Comp Metabolic Emy821 eGFR 105 ml/min/1.73m2 10/12/2016 Comp Metabolic Rke211 BUN 12 mg/dL 10/12/2016 Comp Metabolic Eea655 B/C Ratio 18.8 Ratio 10/12/2016 Comp Metabolic Lyq465 CALCIUM 9.2 mg/dL 10/12/2016 Comp Metabolic Nkn782 ALK PHOS 59 U/L 10/12/2016 Comp Metabolic Hip295 AST(SGOT) 21 U/L 10/12/2016 Comp Metabolic Wrl202 ALT(SGPT) 27 U/L 10/12/2016 Comp Metabolic Zws221 BILI T 0.2 mg/dL 10/12/2016 Comp Metabolic Nux960 ALBUMIN 4.4 g/dL 10/12/2016 Comp Metabolic Kxr368 TPRO 6.7 g/dL 10/12/2016 Comp Metabolic Jtz079 GLOB 2.3 g/dL 10/12/2016 Comp Metabolic Oxl827 A/G Ratio 1.9 Ratio 10/12/2016 Comp Metabolic Adl285 Osmo 276 mOsmo 10/12/2016 Cbc With Differential [...] 31.9 % 10/12/2016 Cbc With Differential Ord2 [place]% 8.0 % 10/12/2016 Cbc With Differential Ord2 [...] 3.12 K/ul 10/12/2016 Cbc With Differential Ord2 [place] ABS# 0.8 K/ul 10/12/2016 Cbc With Differential Ord2 Eos ABS# 0.1 K/ul 10/12/2016 Cbc With Differential Ord2 Baso ABS# 0.0 K/ul 10/12/2016 Lipid Ord30 CHOL 194 mg/dL 10/12/2016 Lipid Ord30 HDL 76.0 mg/dl 10/12/2016 Lipid Ord30 TRIG 159 mg/dL 10/12/2016 Lipid Ord30 LDL 86 mg/dL 10/12/2016 Lipid Ord30 C/HDL 2.6 Ratio 10/12/2016 Comp Metabolic Aem050 NA 139 mEq/L 09/11/2016 Comp Metabolic Kyd436 K 3.6 mEq/L 09/11/2016 Comp Metabolic Fkc026 CL 102 mEq/L 09/11/2016 Comp Metabolic Vvg761 CO2 26.0 mEq/L 09/11/2016 Comp Metabolic Hpa721 ANION GAP 15 09/11/2016 Comp Metabolic Peq853 GLUCOSE 90 mg/dL 09/11/2016 Comp Metabolic Jyk050 Creat 0.6 mg/dL 09/11/2016 Comp Metabolic Fki098 eGFR 111 ml/min/1.73m2 09/11/2016 Comp Metabolic Gmh453 BUN 14 mg/dL 09/11/2016 Comp Metabolic Tmz076 B/C Ratio 23.0 Ratio 09/11/2016 Comp Metabolic Okd949 CALCIUM 9.0 mg/dL 09/11/2016 Comp Metabolic Ysf645 ALK PHOS 56 U/L 09/11/2016 Comp Metabolic Mdb557 AST(SGOT) 21 U/L 09/11/2016 Comp Metabolic Lum763 ALT(SGPT) 17 U/L 09/11/2016 Comp Metabolic Ksv938 BILI T 0.2 mg/dL 09/11/2016 Comp Metabolic Ehe118 ALBUMIN 4.1 g/dL 09/11/2016 Comp Metabolic Krf743 TPRO 6.5 g/dL 09/11/2016 Comp Metabolic Dxa393 GLOB 2.4 g/dL 09/11/2016 Comp Metabolic Zpm238 A/G Ratio 1.7 Ratio 09/11/2016 Comp Metabolic Cmf117 Osmo 278 mOsmo 09/11/2016 Tsh Ord6 hTSH [...] 33.0 pg 09/11/2016 Cbc With Differential Ord2 [place]% 8.6 % 09/11/2016 Cbc With Differential Ord2 [...] 3.35 K/ul 09/11/2016 Cbc With Differential Ord2 [place] ABS# 1.0 K/ul 09/11/2016 Cbc With Differential Ord2 Eos ABS# 0.1 K/ul 09/11/2016 Cbc With Differential Ord2 Baso ABS# 0.0 K/ul 09/11/2016 Lipid Ord30 CHOL 168 mg/dL 09/11/2016 Lipid Ord30 HDL 74.0 mg/dl 09/11/2016 Lipid Ord30 TRIG 167 mg/dL 09/11/2016 Lipid Ord30 LDL 61 mg/dL 09/11/2016 Lipid Ord30 C/HDL 2.3 Ratio 09/11/2016 B12 See959 B12 474.00 pg/ml 09/11/2016 B12 Oum548 B12 827.00 pg/ml 03/02/2016 Cbc With Differential [...] 108.3 fl 02/28/2016 Cbc With Differential Ord2 [place]% 5.4 % 02/28/2016 Cbc With Differential Ord2 [...] 2.08 K/ul 02/28/2016 Cbc With Differential Ord2 [place] ABS# 0.3 K/ul 02/28/2016 Cbc With Differential Ord2 Eos ABS# 0.1 K/ul 02/28/2016 Cbc With Differential Ord2 Baso ABS# 0.0 K/ul 02/28/2016 Sed Rate Ord21 ESR 5 mm/hr 02/28/2016 C-Reactive Protein Qnt Crqnt CRP 0.1 mg/dl 02/28/2016 Comp Metabolic Jke972 NA 136 mEq/L 02/28/2016 Comp Metabolic Aqq469 K 4.0 mEq/L 02/28/2016 Comp Metabolic Kar744 CL 103 mEq/L 02/28/2016 Comp Metabolic Lsc717 CO2 27.0 mEq/L 02/28/2016 Comp Metabolic Lpm627 ANION GAP 10 02/28/2016 Comp Metabolic Via561 GLUCOSE 138 mg/dL 02/28/2016 Comp Metabolic Xxz006 Creat 0.6 mg/dL 02/28/2016 Comp Metabolic Oiw203 eGFR 120 ml/min/1.73m2 02/28/2016 Comp Metabolic Oho373 BUN 15 mg/dL 02/28/2016 Comp Metabolic Aez912 B/C Ratio 26.3 Ratio 02/28/2016 Comp Metabolic Pck664 CALCIUM 8.8 mg/dL 02/28/2016 Comp Metabolic Xfl812 ALK PHOS 58 U/L 02/28/2016 Comp Metabolic Amd721 AST(SGOT) 21 U/L 02/28/2016 Comp Metabolic Cpi066 ALT(SGPT) 21 U/L 02/28/2016 Comp Metabolic Iok969 BILI T 0.2 mg/dL 02/28/2016 Comp Metabolic Qpy272 ALBUMIN 3.8 g/dL 02/28/2016 Comp Metabolic Zum087 TPRO 5.7 g/dL 02/28/2016 Comp Metabolic Woq065 GLOB 1.9 g/dL 02/28/2016 Comp Metabolic Qan575 A/G Ratio 2.0 Ratio 02/28/2016 Comp Metabolic Rlf332 Osmo 275 mOsmo 02/28/2016 Tsh Ord6 hTSH II 1.25 uIU/mL 02/28/2016 B12 Jkf116 B12 >1500.00 pg/ml 01/11/2016 Vitamin D 25 Oh Rqm3655 VITAMIN D, 25 HYDROXY 45.94 ng/mL Comp Metabolic Fkc504 NA 136 mEq/L 03/21/2015 Comp Metabolic Idb201 K 3.8 mEq/L 03/21/2015 Comp Metabolic Qrp973 CL 101 mEq/L 03/21/2015 Comp Metabolic Qrb168 CO2 31.0 mEq/L 03/21/2015 Comp Metabolic Vwx219 ANION GAP 8 03/21/2015 Comp Metabolic Obl636 GLUCOSE 101 mg/dL 03/21/2015 Comp Metabolic Fzw702 Creat 0.7 mg/dL 03/21/2015 Comp Metabolic Wvl405 eGFR 94 ml/min/1.73m2 03/21/2015 Comp Metabolic Cuo244 BUN 13 mg/dL 03/21/2015 Comp Metabolic Rbu483 B/C Ratio 18.3 Ratio 03/21/2015 Comp Metabolic Paa603 CALCIUM 9.3 mg/dL 03/21/2015 Comp Metabolic Dqz392 ALK PHOS 58 U/L 03/21/2015 Comp Metabolic Cxc446 AST(SGOT) 18 U/L 03/21/2015 Comp Metabolic Kwg740 ALT(SGPT) 22 U/L 03/21/2015 Comp Metabolic Put827 BILI T 0.3 mg/dL 03/21/2015 Comp Metabolic Jun737 ALBUMIN 4.4 g/dL 03/21/2015 Comp Metabolic Gsf257 TPRO 6.7 g/dL 03/21/2015 Comp Metabolic Run908 GLOB 2.3 g/dL 03/21/2015 Comp Metabolic Xim275 A/G Ratio 1.9 Ratio 03/21/2015 Comp Metabolic Dft248 Osmo 272 mOsmo 03/21/2015 %Hba1C Svt444 % HbA1c 29143-6 5.4 % 03/21/2015 %Hba1C Vsk939 Gluc Ave 108 mg/dL 03/21/2015 Cbc With [...] 1.32 uIU/mL 03/21/2015 URINALYSIS NONAUTO W/O SCOPE 52503 Specific [place] 1.025 DateTime(Free Text in Aprima) URINALYSIS NONAUTO W/O SCOPE 56516 PH 5.0 DateTime(Free Text in Aprima) URINALYSIS NONAUTO W/O SCOPE 56354 GLUCOSE NEG DateTime( Free Text in Aprima) URINALYSIS NONAUTO W/O SCOPE 90413 Protein NEG DateTime( Free Text in Aprima) URINALYSIS NONAUTO W/O SCOPE 25064 Blood NEG DateTime(Free Text in Aprima) URINALYSIS NONAUTO W/O SCOPE 44095 Bilirubin NEG DateTime(Free Text in Aprima) URINALYSIS NONAUTO W/O SCOPE 69864 Ketones NEG DateTime( Free Text in Aprima) URINALYSIS NONAUTO W/O SCOPE 55752 Urobilinogen NEG DateTime(Free Text in Aprima) URINALYSIS NONAUTO W/O SCOPE 87198 Nitrite NEG DateTime( Free Text in Aprima) URINALYSIS NONAUTO W/O SCOPE 58755 Leukocytes NEG DateTime(Free Text in Aprima) Review [...] clear 04/27/2017 None Full Exam - General 1995 Integument inspection of skin Location: scalp 04/27/2017 [...] time 02/15/2012 None Full Exam - General 1995 Psychiatric mood and affect Overall: normal mood and affect 02/15/2012 None Full Exam - General 1995 Chest/Breast breast and axillae palpation Lower outer quadrant: no mass 02/15/2012 None Full Exam - General 1995 Chest/Breast breast and axillae palpation Lower outer quadrant: tender 02/15/2012 Left chest wall/lower ribs TTP. Small bruise noted to LUQ abdomen Full Exam - General 1995 Constitutional general appearance Overall: well developed 02/15/2012 None Full Exam - General 1995 Constitutional general appearance Overall: in no acute distress 02/15/2012 None Full Exam - General 1995 Constitutional general appearance Overall: well nourished 02/15/2012 [...] murmurs 08/03/2011 None Full Exam - General 1995 Abdomen abdominal exam Overall: no tenderness 08/03/2011 [...] Codes Date URINALYSIS NONAUTO W/O SCOPE CPT-4: 43052 07/08/2018 THER/PROPH/DIAG INJ SC/IM CPT-4: 96725 04/05/2018 VITAMIN B12 INJECTION CPT-4: J3420 04/05/2018 THER/PROPH/DIAG INJ SC/IM CPT-4: 68654 03/10/2018 VITAMIN B12 INJECTION CPT-4: J3420 03/10/2018 THER/PROPH/DIAG INJ SC/IM CPT-4: 28214 10/19/2017 VITAMIN B12 INJECTION CPT-4: J3420 10/19/2017 URINALYSIS NONAUTO W/O SCOPE CPT-4: 02130 09/17/2017 THER/PROPH/DIAG INJ SC/IM CPT-4: 81054 08/19/2017 VITAMIN B12 INJECTION CPT-4: J3420 08/19/2017 THER/PROPH/DIAG INJ SC/IM CPT-4: 45029 07/06/2017 VITAMIN B12 INJECTION CPT-4: J3420 07/06/2017 THER/PROPH/DIAG INJ SC/IM CPT-4: 93673 04/27/2017 VITAMIN B12 INJECTION CPT-4: J3420 04/27/2017 THER/PROPH/DIAG INJ SC/IM CPT-4: 63105 11/17/2016 VITAMIN B12 INJECTION CPT-4: J3420 11/17/2016 THER/PROPH/DIAG INJ SC/IM CPT-4: 06445 10/12/2016 VITAMIN B12 INJECTION CPT-4: J3420 10/12/2016 THER/PROPH/DIAG INJ SC/IM CPT-4: 28969 09/11/2016 VITAMIN B12 INJECTION CPT-4: J3420 09/11/2016 THER/PROPH/DIAG INJ SC/IM CPT-4: 86342 07/03/2016 VITAMIN B12 INJECTION CPT-4: J3420 07/03/2016 VITAMIN B12 INJECTION CPT-4: J3420 04/20/2016 THER/PROPH/DIAG INJ SC/IM CPT-4: 10078 04/20/2016 ADMIN INFLUENZA VIRUS VAC CPT-4: G0008 03/17/2016 IIV4 FLU VACC NO PRESERV ID Formatting Model/CDA Sections, Assigned to/Kathy Lopez CT: [id number] CPT-4: [id number] 03/17/2016 THER/PROPH/DIAG INJ SC/IM CPT-4: 11497 02/13/2016 VITAMIN B12 INJECTION CPT-4: J3420 02/13/2016 URINALYSIS NONAUTO W/O SCOPE CPT-4: 39302 12/10/2015 THER/PROPH/DIAG INJ SC/IM CPT-4: 46355 12/02/2015 VITAMIN B12 INJECTION CPT-4: J3420 12/02/2015 PNEUMOCOCCAL VACC [address]: [id number] CPT-4: 94375 12/02/2015 IMMUNIZATION ADMIN CPT -4: 63909 12/02/2015 THER/PROPH/DIAG INJ SC/IM CPT-4: 25275 10/29/2015 VITAMIN B12 INJECTION CPT-4: J3420 10/29/2015 THER/PROPH/DIAG INJ SC/IM CPT-4: 14520 06/10/2015 VITAMIN B12 INJECTION CPT-4: J3420 06/10/2015 THER/PROPH/DIAG INJ SC/IM CPT-4: 88199 02/15/2014 VITAMIN B12 INJECTION CPT-4: J3420 02/15/2014 TRIAMCINOLONE ACET INJ NOS CPT-4: J3301 01/15/2014 VITAMIN B12 INJECTION CPT-4: J3420 01/15/2014 THER/PROPH/DIAG INJ SC/IM CPT-4: 25577 12/04/2013 VITAMIN B12 INJECTION CPT-4: J3420 12/04/2013 THER/PROPH/DIAG INJ SC/IM CPT-4: 51405 07/24/2013 VITAMIN B12 INJECTION CPT-4: J3420 07/24/2013 PRESCRIP TRANSMIT VIA ERX SY CPT-4: G8553 06/12/2013 VITAMIN B12 INJECTION CPT-4: J3420 05/10/2013 THER/PROPH/DIAG INJ SC/IM CPT-4: 58987 05/10/2013 TRIAMCINOLONE ACET INJ NOS CPT-4: J3301 03/06/2013 PRESCRIP TRANSMIT VIA ERX SY CPT-4: G8553 03/06/2013 ADMIN INFLUENZA VIRUS VAC CPT-4: G0008 02/20/2013 FLULAVAL VACC, 3 YRS & >, IM CPT-4: Q2036 02/20/2013 THER/PROPH/DIAG INJ SC/IM CPT-4: 10466 02/20/2013 VITAMIN B12 INJECTION CPT-4: J3420 02/20/2013 THER/PROPH/DIAG INJ SC/IM CPT-4: 55528 12/26/2012 TRIAMCINOLONE ACET INJ NOS CPT-4: J3301 12/26/2012 THER/PROPH/DIAG INJ SC/IM CPT-4: 86441 12/21/2012 VITAMIN B12 INJECTION CPT-4: J3420 12/21/2012 THER/PROPH/DIAG INJ SC/IM CPT-4: 17236 11/16/2012 VITAMIN B12 INJECTION CPT-4: J3420 11/16/2012 TB INTRADERMAL TEST (includes injection fee) CPT-4: 52626 09/26/2012 THER/PROPH/DIAG INJ SC/IM CPT-4: 60339 09/12/2012 VITAMIN B12 INJECTION CPT-4: J3420 09/12/2012 TRIAMCINOLONE ACET INJ NOS CPT-4: J3301 08/11/2012 VITAMIN B12 INJECTION CPT-4: J3420 08/11/2012 THER/PROPH/DIAG INJ SC/IM CPT-4: 21786 08/11/2012 VITAMIN B12 INJECTION CPT-4: J3420 07/13/2012 THER/PROPH/DIAG INJ SC/IM CPT-4: 26437 07/13/2012 THER/PROPH/DIAG INJ SC/IM CPT-4: 93612 05/26/2012 TRIAMCINOLONE ACET INJ NOS CPT-4: J3301 05/26/2012 VITAMIN B12 INJECTION CPT-4: J3420 05/26/2012 ADMIN INFLUENZA VIRUS VAC CPT-4: G0008 03/02/2012 FLULAVAL VACC, 3 YRS & >, IM CPT-4: Q2036 03/02/2012 PRESCRIP TRANSMIT VIA ERX SY CPT-4: G8553 02/15/2012 TRIAMCINOLONE ACET INJ NOS CPT-4: J3301 01/13/2012 VITAMIN B12 INJECTION CPT-4: J3420 12/21/2011 VITAMIN B12 INJECTION CPT-4: J3420 10/30/2011 THER/PROPH/DIAG INJ SC/IM CPT-4: 33457 10/30/2011 THER/PROPH/DIAG INJ SC/IM CPT-4: 19138 10/02/2011 VITAMIN B12 INJECTION CPT-4: J3420 10/02/2011 TRIAMCINOLONE ACET INJ NOS CPT-4: J3301 10/02/2011 PRESCRIP TRANSMIT VIA ERX SY CPT-4: G8553 10/02/2011 VITAMIN B12 INJECTION CPT-4: J3420 09/01/2011 URINALYSIS NONAUTO W/O SCOPE CPT-4: 50588 08/03/2011 VITAMIN B12 INJECTION CPT-4: J3420 08/03/2011 THER/PROPH/DIAG INJ SC/IM CPT-4: 74697 08/03/2011 THER/PROPH/DIAG INJ SC/IM CPT-4: 86040 06/11/2011 VITAMIN B12 INJECTION CPT-4: J3420 06/11/2011 ROUTINE VENIPUNCTURE CPT-4: 72522 06/11/2011 THER/PROPH/DIAG INJ SC/IM CPT-4: 51612 02/23/2011 VITAMIN B12 INJECTION CPT-4: J3420 02/23/2011 ADMIN INFLUENZA VIRUS VAC CPT-4: G0008 02/23/2011 FLULAVAL VACC, 3 YRS & >, IM CPT-4: Q2036 02/23/2011 Vital Signs Date Vital 06/16/2018 Blood Pressure 1: 132/78 Code : 8480-6 Heart Rate 1: 120 bpm Height: 5'9" SpO2: 98% Weight: 06/01/2018 Blood Pressure 1: 138/70 Code : 8480-6 BMI: 30.9 Code : 40481-1 Heart Rate 1 : 120 bpm Height: 5'9" Respiratory Rate: 18 bpm SpO2: 96% Weight: 209 lbs 04/05/2018 Blood Pressure 1: 144/80 Code : 8480-6 BMI: 30.9 Code : 61306-8 Heart Rate 1 : 118 bpm Height: 5'9" SpO2: 98% Weight: 209 lbs 03/10/2018 Blood Pressure 1: 128/82 Code : 8480-6 Blood Pressure 1: 162/74 Code: 8480-6 BMI: 30.3 Code: 64843-4 Heart Rate 1: 101 bpm Height: 5'9" SpO2: 98% Weight: 205 lbs 01/13/2018 Blood Pressure 1: 102/78 Code : 8480-6 BMI: 31.6 Code : 65100-2 Heart Rate 1 : 103 bpm Height: 5'9" SpO2: 98% Weight: 214 lbs 11/25/2017 Blood Pressure 1: 114/80 Code : 8480-6 BMI: 30.3 Code : 70166-7 Heart Rate 1 : 112 bpm Height: 5'9" SpO2: 98% Weight: 205 lbs 10/19/2017 Blood Pressure 1: 110/70 Code : 8480-6 BMI: 30.7 Code : 49873-1 Heart Rate 1 : 102 bpm Height: 5'9" SpO2: 97% Weight: 208 lbs 09/17/2017 Blood Pressure 1: 132/78 Code : 8480-6 BMI: 30.4 Code : 64809-3 Heart Rate 1 : 117 bpm Height: 5'9" SpO2: 97% Weight: 206 lbs 09/06/2017 Blood Pressure 1: 110/78 Code : 8480-6 BMI: 29.8 Code : 06594-3 Heart Rate 1 : 106 bpm Height: 5'9" SpO2: 97% Weight: 202 lbs 08/19/2017 Blood Pressure 1: 136/72 Code : 8480-6 BMI: 30.4 Code : 22352-5 Heart Rate 1 : 108 bpm Height: 5'9" SpO2: 94% Weight: 206 lbs 07/06/2017 Blood Pressure 1: 154/80 Code : 8480-6 Heart Rate 1: 111 bpm Height: 5'9" Respiratory Rate: 20 bpm SpO2: 98% Weight: 04/27/2017 Blood Pressure 1: 138/78 Code : 8480-6 BMI: 30.4 Code : 45890-6 Heart Rate 1 : 96 bpm Height: 5'9" SpO2: 97% Weight: 206 lbs 04/06/2017 Blood Pressure 1: 108/80 Code : 8480-6 BMI: 31.0 Code : 68373-5 Heart Rate 1 : 96 bpm Height: 5'9" SpO2: 98% Weight: 210 lbs 02/25/2017 Blood Pressure 1: 132/80 Code : 8480-6 BMI: 32.5 Code : 85901-3 Heart Rate 1 : 112 bpm Height: 5'9" SpO2: 94% Weight: 220 lbs 01/19/2017 Blood Pressure 1: 122/68 Code : 8480-6 Heart Rate 1: 100 bpm Height: 5'9" SpO2: 95% Weight: 11/17/2016 Blood Pressure 1: 132/74 Code : 8480-6 BMI: 32.2 Code : 25559-9 Heart Rate 1 : 98 bpm Height: 5'9" SpO2: 94% Weight: 218 lbs 10/12/2016 Blood Pressure 1: 130/82 Code : 8480-6 BMI: 32.2 Code : 14072-2 Heart Rate 1 : 97 bpm Height: 5'9" SpO2: 94% Weight: 218 lbs 08/18/2016 Blood Pressure 1: 132/78 Code : 8480-6 BMI: 32.0 Code : 05093-0 Heart Rate 1 : 113 bpm Height: 5'9" SpO2: 98% Weight: 217 lbs 08/07/2016 Blood Pressure 1: 126/70 Code : 8480-6 BMI: 33.1 Code : 38982-9 Heart Rate 1 : 102 bpm Height: 5'9" SpO2: 94% Weight: 224 lbs 07/31/2016 Blood Pressure 1: 134/66 Code : 8480-6 BMI: 31.7 Code : 28155-8 Heart Rate 1 : 97 bpm Height: 5'9" SpO2: 95% Temperature: 36.4 (C) / 97.6 (F) Weight: 215 lbs 07/15/2016 Blood Pressure 1: 126/62 Code : 8480-6 Heart Rate 1: 105 bpm Height: 5'9" Weight: 07/07/2016 Blood Pressure 1: 106/54 Code : 8480-6 BMI: 31.7 Code : 59348-1 Heart Rate 1 : 93 bpm Height: 5'9" SpO2: 97% Weight: 215 lbs 06/25/2016 Heart Rate 1: 99 bpm Height: 5'9" SpO2: 95% Weight: 05/07/2016 Blood Pressure 1: 124/86 Code : 8480-6 BMI: 28.5 Code : 48345-1 Heart Rate 1 : 100 bpm Height: 5'9" SpO2: 96% Weight: 193 lbs 04/20/2016 Blood Pressure 1: 120/80 Code : 8480-6 BMI: 28.5 Code : 75062-8 Heart Rate 1 : 86 bpm Height: 5'9" SpO2: 96% Weight: 193 lbs 03/17/2016 Blood Pressure 1: 120/70 Code : 8480-6 BMI: 29.1 Code : 77234-7 Heart Rate 1 : 103 bpm Height: 5'9" SpO2: 96% Weight: 197 lbs 03/05/2016 Blood Pressure 1: 124/78 Code : 8480-6 Heart Rate 1: 82 bpm Height: 5'9" SpO2: 94% Weight: 02/28/2016 Blood Pressure 1: 94/50 Code : 8480-6 Heart Rate 1: 91 bpm Height: 5'9" SpO2: 94% Weight: 02/13/2016 Blood Pressure 1: 128/86 Code : 8480-6 BMI: 28.6 Code : 08902-3 Heart Rate 1 : 100 bpm Height: 5'9" SpO2: 96% Weight: 194 lbs 08/15/2015 Blood Pressure 1: 128/68 Code : 8480-6 BMI: 27.3 Code : 48359-3 Heart Rate 1 : 72 bpm Height: 5'9" SpO2: 92% Weight: 185 lbs 07/25/2015 Blood Pressure 1: 122/76 Code : 8480-6 BMI: 27.5 Code : 04078-5 Heart Rate 1 : 70 bpm Height: 5'9" SpO2: 94% Weight: 186 lbs 06/25/2015 Blood Pressure 1: 118/54 Code : 8480-6 BMI: 26.7 Code : 27337-0 Heart Rate 1 : 98 bpm Height: 5'9" SpO2: 97% Weight: 181 lbs 06/10/2015 Blood Pressure 1: 110/68 Code : 8480-6 Heart Rate 1: 80 bpm Height: SpO2: 98% Weight: 05/08/2015 Blood Pressure 1: 120/68 Code : 8480-6 BMI: 27.5 Code : 62614-2 Heart Rate 1 : 95 bpm Height: 5'9" SpO2: 96% Weight: 186 lbs 03/26/2015 Blood Pressure 1: 120/80 Code : 8480-6 Heart Rate 1: 102 bpm Respiratory Rate: 18 bpm SpO2: 92% Weight: 186 lbs 03/15/2015 Blood Pressure 1: 122/64 Code : 8480-6 BMI: 26.6 Code : 46730-4 Heart Rate 1 : 96 bpm Height: 5'9" SpO2: 96% Weight: 180 lbs 01/10/2015 Blood Pressure 1: 120/68 Code : 8480-6 BMI: 27.5 Code : 02095-7 Heart Rate 1 : 90 bpm Height: 5'9" Weight: 186 lbs 12/21/2014 Blood Pressure 1: 118/78 Code : 8480-6 BMI: 27.2 Code : 69652-4 Heart Rate 1 : 61 bpm Height: 5'9" SpO2: 97% Weight: 184 lbs 10/05/2014 Blood Pressure 1: 118/64 Code : 8480-6 BMI: 27.0 Code : 21696-8 Heart Rate 1 : 76 bpm Height: 5'9" Weight: 183 lbs 06/14/2014 Blood Pressure 1: 120/78 Code : 8480-6 BMI: 26.6 Code : 70876-7 Heart Rate 1 : 96 bpm Height: 5'9" Weight: 180 lbs 01/19/2014 Blood Pressure 1: 128/76 Code : 8480-6 BMI: 27.3 Code : 87248-5 Heart Rate 1 : 82 bpm Height: 5'9" Weight: 185 lbs 01/15/2014 Blood Pressure 1: 110/62 Code : 8480-6 BMI: 27.9 Code : 62651-2 Heart Rate 1 : 80 bpm Height: 5'9" Weight: 189 lbs 10/20/2013 Blood Pressure 1: 112/62 Code : 8480-6 BMI: 30.1 Code : 97614-1 Heart Rate 1 : 76 bpm Height: [...] Code : 8480-6 BMI: 30.6 Code : 28401-1 Heart Rate 1 : 92 bpm Height: 5'9" Weight: 207 lbs 05/23/2013 Blood Pressure 1: 120/78 Code : 8480-6 Heart Rate 1: 84 bpm Weight: 05/19/2013 Blood Pressure 1: 126/78 Code : 8480-6 BMI: 30.3 Code : 56414-0 Heart Rate 1 : 88 bpm Height: 5'9" Weight: 205 lbs 05/16/2013 Blood Pressure 1: 126/66 Code : 8480-6 BMI: 30.3 Code : 95464-7 Heart Rate 1 : 84 bpm Height: 5'9" Weight: 205 lbs 03/06/2013 Blood Pressure 1: 128/76 Code : 8480-6 BMI: 30.6 Code : 20409-3 Heart Rate 1 : 88 bpm Height: 5'9" Weight: 207 lbs 12/26/2012 Blood Pressure 1: 142/70 Code : 8480-6 BMI: 29.6 Code : 76986-3 Heart Rate 1 : 100 bpm Height: 5'9" Weight: 200 lbs 8 oz 11/21/2012 Blood Pressure 1: 132/80 Code : 8480-6 BMI: 29.5 Code : 92136-5 Heart Rate 1 : 96 bpm Height: [...] Code : 8480-6 BMI: 29.2 Code : 17284-1 Heart Rate 1 : 64 bpm Height: 5'9" Respiratory Rate: 16 bpm Weight: 198 lbs 03/11/2011 Blood Pressure 1: 106/60 Code : 8480-6 BMI: 28.8 Code : 78999-1 Heart Rate 1 : 100 bpm Height: 5'9" SpO2: 97% Weight: 195 lbs 02/12/2011 Weight: 192 lbs 01/29/2011 Blood Pressure 1: 100/64 Code : 8480-6 BMI: 28.1 Code : 07704-2 Heart Rate 1 : 100 bpm Height: [...] Hospital Follow Up _ pain 05/16/2013 left [id number] to left knee-applying neosporin and covering with [...] pt to have a study done at [facility] [id number] shortness of breath Triggers exertion 03/11/2011 None [...] 02/12/2011 and pt went to her chiropractor/ barrel turner this week and was" worked on" and she has been feeling better shortness of breath Alleviating Factors rest 02/12/2011 pt states that her shortness of breath got better after her barrel turner adjusted her pelvis gastroesophageal reflux Quality heartburn [...] data Encounters Encounter Performer Location Codes Date ([id number]) 20081 EST. PATIENT, LEVEL III Diagnosis: Acute upper respiratory infection, unspecified[ICD10: J06.9] Diagnosis: Generalized anxiety disorder[ICD10: F41.1] Valentina Thompson MD, [facility] CPT-4: 44858 06/16/2018 ([id number]) 55595 EST. PATIENT, LEVEL IV Diagnosis: Chronic pain syndrome[ICD10: G89.4] Diagnosis: Generalized anxiety disorder[ICD10: F41.1] Diagnosis: Low back pain[ICD10: M54.5] Diagnosis: Essential (primary) hypertension[ICD10: I10] Aicha Thompson MD, [facility] CPT-4: 15448 06/01/2018 ([id number]) 29185 EST. PATIENT, LEVEL IV Diagnosis: Essential (primary) hypertension[ICD10: I10] Diagnosis: Chronic pain syndrome[ICD10: G89.4] Diagnosis: Vitamin B12 deficiency anemia due to intrinsic factor deficiency[ ICD10: D51.0] Aicha Thompson MD, [facility] CPT-4: 23919 04/05/2018 ([id number]) 00823 EST. PATIENT, LEVEL IV Diagnosis: Essential (primary) hypertension[ICD10: I10] Diagnosis: Generalized anxiety disorder[ICD10: F41.1] Diagnosis: Major depressive disorder, recurrent, mild[ICD10: F33.0] Diagnosis: Vitamin B12 deficiency anemia due to intrinsic factor deficiency[ ICD10: D51.0] Valentina Thompson MD, [facility] CPT-4: 53437 03/10/2018 ([id number]) 60445 EST. PATIENT, LEVEL IV Diagnosis: Headache[ICD10: R51] Diagnosis: Obstructive sleep apnea (adult) (pediatric)[ICD10: G47.33] Diagnosis: Cervicalgia[ICD10: M54.2] Valentina Thompson MD, [facility] CPT-4: 94991 01/13/2018 ([id number]) 15043 EST. PATIENT, LEVEL IV Diagnosis: Headache[ICD10: R51] Diagnosis: Spinal stenosis, cervical region[ICD10: M48.02] Diagnosis: Major depressive disorder, recurrent, mild[ICD10: F33.0] Valentina Thompson MD , [facility] CPT-4: 94387 11/25/2017 ([id number]) 96719 EST. PATIENT, LEVEL III Diagnosis: Allergic contact dermatitis due to plants, except food[ICD10: L23.7] Diagnosis: Vitamin B12 deficiency anemia due to intrinsic factor deficiency[ ICD10: D51.0] Valentina Thompson MD, [facility] CPT-4: 14710 10/19/2017 ([id number]) 92559 EST. PATIENT, LEVEL IV Diagnosis: Generalized abdominal pain[ICD10: R10.84] Diagnosis: Urinary tract infection, site not specified[ICD10: N39.0] Diagnosis: Hypokalemia[ICD10: E87.6] Valentina Thompson MD, [facility] CPT-4: 49528 09/17/2017 ([id number]) 54916 EST. PATIENT, LEVEL IV Diagnosis: Chronic pain syndrome[ICD10: G89.4] Diagnosis: Pain in left knee[ICD10: M25.562] Diagnosis: Pain in right knee[ICD10: M25.561] Diagnosis: Essential (primary) hypertension[ICD10: I10] Aicha Thompson MD, [facility] CPT-4: 70072 09/06/2017 ([id number]) 11652 EST. PATIENT, LEVEL IV Diagnosis: Headache[ICD10: R51] Diagnosis: Chronic pain syndrome[ICD10: G89.4] Diagnosis: Mixed hyperlipidemia[ICD10: E78.2] Diagnosis: Vitamin D deficiency, unspecified[ICD10: E55.9] Diagnosis: Vitamin B12 deficiency anemia, unspecified[ICD10: D51.9] Valentina Thompson MD , [facility] CPT-4: 34826 08/19/2017 66624 EST. PATIENT, LEVEL V Diagnosis: Essential (primary) hypertension[ICD10: I10] Diagnosis: Vitamin B12 deficiency anemia due to intrinsic factor deficiency[ ICD10: D51.0] Diagnosis: Chronic pain syndrome[ICD10: G89.4] Aicha Thompson MD, [facility] CPT-4: 78007 07/06/2017 ([id number]) 69663 EST. PATIENT, LEVEL IV Diagnosis: Cervicalgia[ICD10: M54.2] Diagnosis: Laceration without foreign body of scalp, initial encounter[ICD10: S01.01XA] Diagnosis: Vitamin B12 deficiency anemia due to intrinsic factor deficiency[ ICD10: D51.0] Valentina Thompson MD, [facility] CPT-4: 87379 04/27/2017 02927 EST. PATIENT, LEVEL II Diagnosis: Residual hemorrhoidal skin tags[ICD10: K64.4] Valentina Thompson MD, [facility] CPT-4: 11984 04/06/2017 ([id number]) 35393 EST. PATIENT, LEVEL III Diagnosis: Pain in right foot[ICD10: M79.671] Diagnosis: Pain in left foot[ICD10: M79.672] Diagnosis: Cervicalgia[ICD10: M54.2] Valentina Thompson MD, [facility] CPT-4: 99257 02/25/2017 ([id number]) 31233 EST. PATIENT, LEVEL IV Diagnosis: Essential (primary) hypertension[ICD10: I10] Diagnosis: Chronic pain syndrome[ICD10: G89.4] Diagnosis: Spinal stenosis, cervical region[ICD10: M48.02] Diagnosis: Pain in right leg[ICD10: M79.604] Valentina Thompson MD, [facility] CPT-4: 95512 01/19/2017 ([id number]) 50742 EST. PATIENT, LEVEL III Diagnosis: Pain in right foot[ICD10: M79.671] Diagnosis: Pain in left foot[ICD10: M79.672] Diagnosis: Chronic pain syndrome[ICD10: G89.4] Diagnosis: Vitamin B12 deficiency anemia, unspecified[ICD10: D51.9] Valentina Thompson MD , [facility] CPT-4: 50821 11/17/2016 ([id number]) 95441 EST. PATIENT, LEVEL IV Diagnosis: Essential (primary) hypertension[ICD10: I10] Diagnosis: Chronic pain syndrome[ICD10: G89.4] Diagnosis: Foot drop, right foot[ICD10: M21.371] Diagnosis: Foot drop, left foot[ICD10: M21.372] Diagnosis: Other abnormalities of gait and mobility[ICD10: R26.89] Diagnosis: Vitamin B12 deficiency anemia due to intrinsic factor deficiency[ ICD10: D51.0] Aicha Thompson MD, [facility] CPT-4: 01234 10/12/2016 ([id number]) 47168 EST. PATIENT, LEVEL III Diagnosis: Pain in right ankle and joints of right foot[ICD10: M25.571] Diagnosis: Superficial foreign body, right foot, initial encounter[ICD10: S90.851A] Valentina Thompson MD, [facility] CPT-4: 62816 ([id number]) 32199 EST. PATIENT, LEVEL III Diagnosis: Candidiasis of vulva and vagina[ICD10: B37.3] Diagnosis: Vitamin B12 deficiency anemia, unspecified[ICD10: D51.9] Valentina Thompson MD , [facility] CPT-4: 10759 08/07/2016 ([id number]) 01810 EST. PATIENT, LEVEL III Diagnosis: Spinal stenosis, cervical region[ICD10: M48.02] Diagnosis: Pain in right ankle and joints of right foot[ICD10: M25.571] Diagnosis: Pain in left ankle and joints of left foot[ICD10: M25.572] Valentina Thompson MD, [facility] CPT-4: 28790 07/31/2016 [id number] EST. PATIENT, LEVEL III Diagnosis: Cervicalgia[ICD10: M54.2] Diagnosis: Chronic pain syndrome[ICD10: G89.4] Beatriz Thompson MD, [facility] CPT-4: 28827 07/15/2016 ([id number]) 80707 EST. PATIENT, LEVEL III Diagnosis: Spinal stenosis, cervical region[ICD10: M48.02] Diagnosis: Low back pain[ICD10: M54.5] Valentina Thompson MD, [facility] CPT-4: 47515 07/07/2016 ([id number]) 21144 EST. PATIENT, LEVEL IV Diagnosis: Cervicalgia[ICD10: M54.2] Diagnosis: Essential (primary) hypertension[ICD10: I10] Diagnosis: Mixed hyperlipidemia[ICD10: E78.2] Aicha Thompson MD, [facility] CPT-4: 31681 06/25/2016 ([id number]) 64831 EST. PATIENT, LEVEL III Diagnosis: Cervicalgia[ICD10: M54.2] Valentina Thompson MD, [facility] CPT-4: 77436 05/07/2016 ([id number]) 69871 EST. PATIENT, LEVEL III Diagnosis: Pleurodynia[ICD10: R07.81] Diagnosis: Generalized anxiety disorder[ICD10: F41.1] Diagnosis: Vitamin B12 deficiency anemia due to intrinsic factor deficiency[ ICD10: D51.0] Diagnosis: Hypoxemia[ICD10: R09.02] Valentina Thompson MD, [facility] CPT-4: 16406 04/20/2016 ([id number]) 74913 EST. PATIENT, LEVEL III Diagnosis: Generalized anxiety disorder[ICD10: F41.1] Diagnosis: Radiculopathy, lumbar region[ICD10: M54.16] Valentina Thompson MD, [facility] CPT-4: 82744 03/17/2016 59726 EST. PATIENT, LEVEL IV Diagnosis: Chronic pain syndrome[ICD10: G89.4] Diagnosis: Radiculopathy, lumbar region[ICD10: M54.16] Diagnosis: Generalized anxiety disorder[ICD10: F41.1] Beatriz Thompson MD, [facility] CPT-4: 60204 03/05/2016 ([id number]) 70178 EST. PATIENT, LEVEL III Diagnosis: Radiculopathy, lumbar region[ICD10: M54.16] Diagnosis: Generalized anxiety disorder[ICD10: F41.1] Valentina Thompson MD, [facility] CPT-4: 35798 02/28/2016 ([id number]) 53750 EST. 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 PATIENT, LEVEL III Diagnosis: Headache[ICD10: R51] Diagnosis: Cervicalgia[ICD10: M54.2] Valentina Thompson MD, [facility] CPT-4: 87653 08/15/2015 ([id number] 05838 EST. PATIENT, LEVEL III Diagnosis: Generalized anxiety disorder[ICD10: F41.1] Diagnosis: Cervicalgia[ICD10: M54.2] Valentina Thompson MD, [facility] CPT-4: 78256 07/25/2015 ([id number]) 44562 EST. PATIENT, LEVEL IV Diagnosis: Pain in right foot[ICD10: M79.671] Diagnosis: Unspecified osteoarthritis, unspecified site[ICD10: M19.90] Diagnosis: Pain in left ankle and joints of left foot[ICD10: M25.572] Diagnosis: Pain in right ankle and joints of right foot[ICD10: M25.571] Valentina Thompson MD, [facility] CPT-4: 82520 06/25/2015 ([id number]) 03831 EST. 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 PATIENT, LEVEL IV Diagnosis: Essential (primary) hypertension[ICD10: I10] Diagnosis: Pain in right foot[ICD10: M79.671] Diagnosis: Pain in left foot[ICD10: M79.672] Diagnosis: Anxiety disorder, unspecified[ICD10: F41.9] Aicha Thompson MD, [facility] CPT-4: 64594 05/08/2015 ([id number]) 68223 EST. PATIENT, LEVEL III Diagnosis: Generalized anxiety disorder[ICD10: F41.1] Diagnosis: Essential (primary) hypertension[ICD10: I10] Diagnosis: Other myositis, multiple sites[ICD10: M60.89] Valentina Thompson MD, [facility] CPT-4: 88061 03/26/2015 71562 EST. PATIENT, LEVEL III Diagnosis: Chronic pain syndrome[ICD10: G89.4] Diagnosis: Unspecified osteoarthritis, unspecified site[ICD10: M19.90] Diagnosis: Pain in right foot[ICD10: M79.671] Diagnosis: Pain in left foot[ICD10: M79.672] Beatriz Thompson MD, [facility] CPT -4: 22955 03/15/2015 ([id number]) 94812 EST. PATIENT, LEVEL III Diagnosis: Abrasion of knee, left[ICD9: 916.0] Valentina Thompson MD, [facility] CPT-4: 16933 01/10/2015 ([id number]) 28729 EST. PATIENT, LEVEL IV Diagnosis: CHRONIC PAIN SYNDROME[ICD9: 338.4] Diagnosis: MYALGIA AND MYOSITIS[ICD9: 729.1] Diagnosis: OSTEOARTH NOS-UNSPEC[ICD9: 715.90] Diagnosis: DEPRESSIVE DISORDER NEC[ICD9: 311] Diagnosis: GENERALIZED ANXIETY DISEASE[ICD9: 300.02] Valentina Thompson MD, [facility] CPT-4: 78808 12/21/2014 ([id number]) 72528 EST. PATIENT, LEVEL IV Diagnosis: GENERALIZED ANXIETY DISEASE[ICD9: 300.02] Diagnosis: DEPRESSIVE DISORDER NEC[ICD9: 311] Diagnosis: ESSENTIAL HYPERTENSION[ICD9: 401.9] Valentina Thompson MD, [facility] CPT-4: 27451 10/05/2014 ([id number]) 68251 EST. PATIENT, LEVEL III Diagnosis: Knee pain, right[ICD9: 719.46] Diagnosis: CHRONIC PAIN SYNDROME[ICD9: 338.4] Diagnosis: Ankle pain[ICD9: 719.47] Aicha Thomspon MD, [facility] CPT-4: 41381 06/14/2014 ([id number]) 83553 EST. PATIENT, LEVEL III Diagnosis: Constipation[ICD9: 564.00] Diagnosis: Hemorrhoids[ICD9: 455.6] Valentina Thompson MD [facility] CPT-4: 18025 01/19/2014 ([id number]) 03629 EST. PATIENT, LEVEL III Diagnosis: Ulcer of knee[ICD9: 707.19] Diagnosis: Hemorrhoids[ICD9: 455.6] Diagnosis: B12 deficiency[ICD9: 266.2] Diagnosis: ALLERGIC RHINITIS[ICD9: 477.9] Valentina Thompson MD, [facility] CPT-4: 69221 01/15/2014 ([id number]) 29329 EST. PATIENT, LEVEL IV Diagnosis: EDEMA[ICD9: 782.3] Diagnosis: Open wound of knee[ICD9: 891.0] Diagnosis: CHRONIC PAIN SYNDROME[ICD9: 338.4] Diagnosis: ANEMIA[ICD9: 285.9] Valentina Thompson MD, [facility] CPT-4: 41136 10/20/2013 ([id number]) 59770 EST. PATIENT, LEVEL III Diagnosis: ULCER OTH PART LOW LIMB[ICD9: 707.19] Valentina Thompson MD, [facility] CPT-4: 10584 07/24/2013 ([id number]) 41710 EST. PATIENT, LEVEL III Diagnosis: ULCER OTH PART LOW LIMB[ICD9: 707.19] Valentina Thompson MD, [facility] CPT-4: 76284 06/23/2013 ([id number]) 68930 EST. PATIENT, LEVEL III Diagnosis: ULCER OTH PART LOW LIMB[ICD9: 707.19] Valentina Thompson MD, [facility] CPT-4: 12358 06/12/2013 ([id number]) Miscellaneous no charge Diagnosis: ULCER OTH PART LOW LIMB[ICD9: 707.19] Valentina Thompson MD, [facility] CPT-4: 79498 05/29/2013 ([id number]) 36720 EST. PATIENT, LEVEL III Diagnosis: ULCER OTH PART LOW LIMB[ICD9: 707.19] Valentina Thompson MD [facility] CPT-4: 61360 05/23/2013 ([id number]) Miscellaneous no charge Diagnosis: ULCER OTH PART LOW LIMB[ICD9: 707.19] Valentina Thompson MD [facility] CPT-4: 41167 05/19/2013 ([id number]) 36676 EST. PATIENT, LEVEL III Diagnosis: Ulcer of knee[ICD9: 707.19] Valentina Thompson MD [facility] CPT-4: 97940 05/16/2013 ([id number]) 18986 EST. PATIENT, LEVEL III Diagnosis: ALLERGIC RHINITIS[ICD9: 477.9] Aicha Thompson MD [facility] CPT- 4: 47138 03/06/2013 ([id number]) 72184 EST. PATIENT, LEVEL IV Diagnosis: Ankle pain[ICD9: 719.47] Diagnosis: ALLERGIC RHINITIS[ICD9: 477.9] Diagnosis: ESSENTIAL HYPERTENSION[SNOMED: 69775885] Aicha Thompson MD [facility] CPT-4: 64876 12/26/2012 ([id number]) 80962 EST. PATIENT, LEVEL IV Diagnosis: ESSENTIAL HYPERTENSION[SNOMED: 30763036] Diagnosis: JOINT PAIN-L/LEG[ICD9: 719.46] Diagnosis: GENERALIZED ANXIETY DISEASE[ICD9: 300.02] Diagnosis: UNSPECIFIED ASTHMA[ICD9: 493.90] Aicha Thompson MD [facility] CPT-4: 85815 11/21/2012 ([id number]) Miscellaneous no charge Diagnosis: Encounter for tuberculin skin test[ICD9: V74.1] Aicha Thompson MD [facility] CPT-4: 78334 09/28/2012 ([id number]) 18550 EST. PATIENT, LEVEL IV Diagnosis: FEVER NOS[ICD9: 780.60] Diagnosis: PNEUMONIA (CAP)[ICD9: 486] Aicha Thompson MD [facility] CPT- 4: 41593 07/21/2012 ([id number]) 85638 EST. PATIENT, LEVEL IV Diagnosis: JOINT PAIN-ANKLE[ICD9: 719.47] Diagnosis: MUSCLE/LIGAMENT DIS NEC[ICD9: 728.89] Diagnosis: Fibromyalgia muscle pain[ICD9: 729.1] Aicha Thompson MD, [facility] CPT-4: 82052 07/13/2012 ([id number]) 41721 EST. PATIENT, LEVEL IV Diagnosis: Right foot pain[ICD9: 729.5] Diagnosis: Plantar fasciitis[ICD9: 728.71] Diagnosis: GENERALIZED ANXIETY DISEASE[ICD9: 300.02] Diagnosis: B-COMPLEX DEFIC NEC[ICD9: 266.2] Aicha Thompson MD, [facility] CPT-4: 78240 05/26/2012 ([id number]) 73054 EST. PATIENT, LEVEL IV Diagnosis: Chest wall pain[ICD9: 786.52] Diagnosis: Esophageal reflux[ICD9: 530.81] Diagnosis: ALLERGIC RHINITIS[ICD9: 477.9] Valentina Thompson MD, [facility] CPT-4: 86715 02/15/2012 ([id number]) 18989 EST. PATIENT, LEVEL IV Diagnosis: ALLERGIC RHINITIS[ICD9: 477.9] Diagnosis: HYPERLIPIDEMIA[ICD9: 272.4] Aicha Thompson MD, [facility] CPT- 4: 23226 01/13/2012 ([id number]) 45693 EST. PATIENT, LEVEL IV Diagnosis: JOINT PAIN-L/LEG[ICD9: 719.46] Diagnosis: UNSPECIFIED ASTHMA[ICD9: 493.90] Diagnosis: Costalchondritis[ICD9: 733.6] Aicha Thompson MD, [facility] CPT- 4: 44746 12/21/2011 ([id number]) 61079 EST. PATIENT, LEVEL IV Diagnosis: Hyperlipidemia[ICD9: 272.4] Diagnosis: ALLERGIC RHINITIS[ICD9: 477.9] Diagnosis: B12 deficiency[ICD9: 266.2] Diagnosis: Hypopotassemia[ICD9: 276.8] Valentina Thompson MD, [facility] CPT-4: 92068 10/02/2011 ([id number]) 62928 EST. PATIENT, LEVEL IV Diagnosis: Pain in joint involving forearm[ICD9: 719.43] Diagnosis: Neck pain[ICD9: 723.1] Diagnosis: Fall on same level from slipping, tripping, or stumbling[ICD9: E885.9 ] Diagnosis: B12 deficiency[ICD9: 266.2] Aicha Thompson MD, [facility] CPT- 4: 60064 09/01/2011 ([id number]) 52476 EST. PATIENT, LEVEL IV Diagnosis: Vulvovaginitis[ICD9: 616.10] Diagnosis: OVERWEIGHT[ICD9: 278.02] Diagnosis: MYALGIA AND MYOSITIS[ICD9: 729.1] Aicha Thompson MD, [facility] CPT-4: 02011 08/03/2011 ([id number]) 71340 EST. PATIENT, LEVEL IV Diagnosis: MUSCLE/LIGAMENT DIS NEC[ICD9: 728.89] Diagnosis: CHRONIC PAIN SYNDROME[ICD9: 338.4] Diagnosis: Weight gain[ICD9: 783.1] Aicha Thompson MD, [facility] CPT-4: 74896 06/29/2011 63436 EST. PATIENT, LEVEL IV Diagnosis: Wrist pain[ICD9: 719.43] Diagnosis: Knee pain, right[ICD9: 719.46] Diagnosis: Fall on same level from slipping, tripping, or stumbling[ICD9: E885.9 ] Aicha Thompson MD, [facility] CPT-4: 78967 06/22/2011 01330 EST. PATIENT, LEVEL IV Diagnosis: MUSCLE/LIGAMENT DIS NEC[ICD9: 728.89] Diagnosis: JOINT PAIN-L/LEG[ICD9: 719.46] Diagnosis: OSTEOARTH NOS-UNSPEC[ICD9: 715.90] Diagnosis: B12 deficiency[ICD9: 266.2] Aicha Thompson MD, [facility] CPT- 4: 89546 06/11/2011 03070 EST. 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 PATIENT, LEVEL IV Diagnosis: Knee pain, bilateral[ICD9: 719.46] Diagnosis: Iliotibial band syndrome[ICD9: 728.89] Diagnosis: Fibromyalgia syndrome[ICD9: 729.1] [facility] CPT-4: 09429 02/12/2011 78538 EST. PATIENT, LEVEL IV Diagnosis: FALL FROM SLIPPING[ICD9: E885.9] Diagnosis: Pain in joint involving lower leg[ICD9: 719.46] Diagnosis: ESOPHAGEAL REFLUX[ICD9: 530.81] Diagnosis: ESSENTIAL HYPERTENSION[SNOMED: 38659686] [facility] CPT-4: 18910 01/29/2011 Plan of Care Planned Activity Notes [...] wear her CPAP the past few days. Zwvenzd-nxtvhqo-dhyhqrapn patient continue taper of medication as discussed with Dr Thompson -continue counseling 06/16/2018 Appointment: Valentina Smith WPtel: [address] [place], [place] [phone] (30 min) [facility] 06/16/2018 Patient Education: Patient Medication Summary Completed [...] her psychiatrist. 06/01/2018 App[facility]ment: [phone] (30 min) Complex 06/01/2018 Patient Education: Patient Medication Summary Completed 06/01/2018 Patient Education: Back Pain Completed 06/01/2018 Patient Education: Hypertension Completed 06/01/2018 Patient Education: Obesity Completed 06/01/2018 [facility]ment: [phone] (15 min) Moderate 04/18/2018 Visit Plan: [...] her taper off of the hydrocodone. 04/05/2018 Visit Plan: Hypertension - well controlled [...] worsening gait stability and falling episodes. 04/05/2018 Appointment: [facility] Thompson [phone] (30 min) Complex 04/05/2018 Patient Education: Patient Medication Summary Completed 04/05/2018 Appointment: [facility]ich[facility] Thompson [facility] [facility] [place] (15 min) Moderate 03/17/2018 Visit Plan: Hypertension [...] up in 2 weeks 03/10/2018 Appointment: Valentina Smith WPtel: [address] [phone] [place] (15 min) Moderate 03/10/2018 Appointment: Aicha Thompson [facility]Ptel: [facility] (15 min) Moderate 03/10/2018 Patient Education: Patient [...] appt scheduled 01/13/2018 Appointment: Valentina Smith WPtel: [address] [place], [place] [phone] (15 min) Moderate 01/13/2018 Patient Education: Patient [...] current medications. 11/25/2017 Appointment: Valentina Smith WPtel: [address] [place], [place] [phone] [place] [address] (30 min) Complex 11/25/2017 Patient Education: Patient Medication Summary Completed 11/25/2017 Visit Plan: Contact dermatitis-discussed natural and expected course of this diagnosis and to alert me if symptoms do not resolve or if any worse. RX sent to patient's pharmacy and instructed on use. 10/19/2017 Appointment: Valentina Smith WPtel: [phone] (15 min) Moderate 10/19/2017 Patient Education: Patient Medication Summary Completed 10/19/2017 Appointment: [facility] Smith [phone] [place] (30 min) Complex 09/27/2017 Visit Plan: Generalized abd szsn-FQC-aalrnd cipro/flagyl- culture urine-recommend patient follow up with Dr Grace for an appt if abdominal pain does not improve Low potassium-check labs 09/17/2017 Visit Plan: Generalized abd uojd-NNL-idmxhl cipro/flagyl- culture urine-recommend patient follow up with Dr Grace for an appt if abdominal pain does not improve Low potassium-check labs 09/17/2017 Appointment: Valentina Smith WPtel: [phone] [place] (30 min) Complex 09/17/2017 Patient Education: Patient [...] over-medication. 09/06/2017 Appointment: Aicha Thompson WPtel: [facility] (30 min) Complex 09/06/2017 Patient Education: Patient Medication Summary Completed 09/06/2017 Appointment: Aicha Thompson WPtel: [address] [place], [place] [address] [place] (30 min) Complex 09/02/2017 Appointment: Aicha Thompson WPtel: [address] [place], [place] [address] (30 min) Complex 08/23/2017 Visit Plan: Headaches-neck pain-patient is to let us know which neurologist she wants to see B12 def-injection today in the office Hyperlipidemia-check labs Vitamin D def-check level 08/19/2017 Appointment: Valentina Smith WPtel: [address] [place], [place] [phone] (30 min) Complex 08/19/2017 Patient Education: Patient [...] list of the neurologists that her extrusion machine operator has recommended and we would consider a [...] list of the neurologists that her extrusion machine operator has recommended and we would consider a [...] the psychiatrist. 07/06/2017 Appointment: Aicha Thompson WPtel: [facility] (30 min) Complex 07/06/2017 Patient Education: Patient Medication Summary Completed 07/06/2017 Appointment: Aicha Thompson WPtel: [facility] (30 min) Complex 07/05/2017 Appointment: Valentina Smith WPtel: [phone] [place] (30 min) Complex 05/17/2017 Appointment: Beatriz Mojica WPtel: [facility] (30 min) Complex 05/14/2017 Visit Plan: Neck jeyu-xfzfcpk-bupewoe to continue f/u with [facility]-her symptoms have [...] of plan. 04/27/2017 Appointment: Valentina Smith WPtel: [address] [place] [address] (30 min) Complex 04/27/2017 Patient Education: Patient Medication Summary Completed 04/27/2017 Patient Education: Obesity Completed 04/27/2017 Visit Plan: Hemorrhoidal skin tag-no acute inflammation today -may use hemorrhoid cream as directed as needed-call with any concerns, bleeding, etc. 04/06/2017 Appointment: Valentina Smith WPtel: [phone] (30 min) Complex 04/06/2017 Patient Education: Patient Medication Summary Completed 04/06/2017 Patient Education: Obesity Completed 04/06/2017 Visit Plan: Bilateral foot and ankle pain-now has AFOs-we have made her several appt with podiatrists which she has not kept-recommend patient call Dr Saunders and reschedule appt with him. Neck pain-[facility] appt next week-KEEP APPOINTMENT! 02/25/2017 Appointment: Valentina Smith WPtel: [phone] (30 min) Complex 02/25/2017 Patient Education: Patient [...] podiatry for evaluation-wants to see someone in [place] 11/17/2016 Appointment: Luis Valentina WPtel: [address] [phone] (30 min) Complex 11/17/2016 Patient Education: Patient Medication Summary Completed 11/17/2016 Appointment: Valentina Smith WPtel: [address] [phone] (30 min) Complex 11/16/2016 Visit Plan: [place] referral - pt to indicate when and who she would like to go to - for neck and back AFO for both legs - [facility] in [place], [place]- fax #[phone] pt has been seen by critical care nurse specialist - need brace because of bilateral [...] over- medication. 10/12/2016 Appointment: Aicha Thompson [facility]el[facility] (30 min) Complex 10/12/2016 Patient Education: Patient Medication Summary Completed 10/12/2016 Patient Education: Obesity Completed 10/12/2016 Appointment: Injection 09/11/2016 Patient Education: Patient Medication Summary Completed 09/11/2016 Visit Plan: Right ankle pain/instability-xray negative- will obtain MRI ankle Ulcer right foot-instructed patient on wound care and the importance of keeping wound clean-f/u in 10-14 days for re-evaluation 08/18/2016 Appointment: Valentina Smith WPtel: [phone] (30 min) Complex 08/18/2016 Patient Education: Patient Medication Summary Completed 08/18/2016 Patient Education: Obesity Completed 08/18/2016 Care Plan: X-RAY EXAM NECK SPINE 2-3 VW LOINC : 76622-0 Pending 08/15/2016 Visit Plan: Vaginal yeast infection-RX for diflucan B12 deficiency-check labs 08/07/2016 Appointment: Valentina Smith WPtel: [phone] [place] (30 min) Complex 08/07/2016 Patient Education: Patient Medication Summary Completed 08/07/2016 Visit Plan: Cervical stenosis-saw Dr Ramey-Dr Ramey is going to send her to for further evaluation Bilateral ankle pain-xray ankles 07/31/2016 Appointment: Valentina Smith WPtel: [facility]5 [phone] (30 min) Complex 07/31/2016 Patient Education: Patient Medication Summary Completed 07/31/2016 Patient Education: Obesity Completed 07/31/2016 Visit Plan: Neck pain after fall - Will check x-ray, Pt is to follow up with Dr. Perez. Pt is to notify clinic if symptoms do not improve , if they worsen, or with any questions or concerns. 07/15/2016 Appointment: Beatriz Mojica WPtel: [facility] (30 min) Complex 07/15/2016 Patient Education: Patient [...] Completed 07/07/2016 Appointment: Injection 07/03/2016 Appointment: Valentina Smithtel: [facility]5 [phone] (30 min) Complex 07/03/2016 Patient Education: Patient [...] despite PT. 05/07/2016 Appointment: Valentina Smith WPtel: [facility]5 [phone] (30 min) Complex 05/07/2016 Patient Education: Patient Medication Summary Completed 05/07/2016 Patient Education: Obesity Completed 05/07/2016 Care Plan: MRI NECK SPINE W/O DYE LOINC : 75879-0 Pending 05/07/2016 Visit Plan: Chronic Depression and [...] monitor symptoms 04/20/2016 Appointment: Valentina Smith WPtel: [address] [place], [place] [phone] (30 min) Complex 04/20/2016 Patient Education: Patient Medication Summary Completed 04/20/2016 Appointment: Valentina Smith WPtel: [address] [place], [place] [phone] (30 min) Complex 03/19/2016 Visit Plan: Chronic [...] Dr Ibarra 03/17/2016 Appointment: Valentina Smith WPtel: [address] [place], [place] [phone] (30 min) Complex 03/17/2016 Patient Education: Patient [...] current medications. 02/28/2016 Appointment: Valentina Smith WPtel: [facility] (15 min) Moderate 02/28/2016 Patient Education: Patient Medication Summary Completed 02/28/2016 Appointment: Valentina Smith WPtel: [address] [place] [address] (30 min) Complex 02/27/2016 Visit Plan: Hypertension [...] d level 02/13/2016 Appointment: Valentina Smith WPtel: [address] [place] [address] (30 min) Complex 02/13/2016 Patient Education: Patient Medication Summary Completed 02/13/2016 Patient Education: Obesity Completed 02/13/2016 Care Plan: Tsh Pending 02/13/2016 Care Plan: Lipid Pending 02/13/2016 Care Plan: Comp Metabolic patient to come fasting Pending 02/13/2016 Care Plan: Vitamin D 25 Oh Cancelled 02/13/2016 Care Plan: Cbc With Differential Pending 02/13/2016 Patient Education: Patient Medication Summary Completed 02/03/2016 Care Plan: SCREENINGMAMMOGRAPHYDIGITAL LOINC : 44618-3 Pending 02/03/2016 Appointment: Injection 01/15/2016 Appointment: Lab [...] EXAM NECK SPINE 2-3 VW LOINC : 62642-7 Ordered 08/15/2015 Visit Plan: Anxiety-fairly well controlled-does [...] feet and ankle instability/pain. Refer patient to [facility] for aqua therapy. Patient verbalized understanding of [...] effects. 05/08/2015 Appointment: Aicha Thompson WPtel: [facility] (30 min) Complex 05/08/2015 Patient [...] Care Plan: COMPLETE CBC AUTOMATED LOINC : 29089-5 Ordered 10/05/2014 Visit Plan: Chronic Pain Syndrome - pt has chronic pain - has been maintained on current medications, has not sought out other medications , only uses PRN pain medications as directed, and understands the consequences of over-medication. Right hip/knee/ankle pain-improving since last fall- continue physical therapy exercises-continue supportive shoes and use walker for stability 06/14/2014 Appointment: Valentina Smith WPtel: [phone] [place] Follow up 06/14/2014 Patient Education: Patient [...] the instructions given to her from her model maker fiberglass and she is to call him if her constipation is uncontrolled. Hemorrhoids-use suppositories as directed. 01/19/2014 Patient Education: Patient Medication Summary Completed 01/19/2014 Visit Plan: Ulcer of ewbx-xnrfzws-wgyci instructions provided today and instructed patient to return as directed-keep wound clean and dry. Hemorrhoids-refill anusol suppositories and use as directed B12 deficiency-b12 injection today in the office Svxvztzzu-zkpvqdwlilxd-gtncruf injection today in the office-continue oral medications [...] Anemia-check labs 10/20/2013 Appointment: Valentina Smith WPtel: [phone] [place] Other 10/20/2013 Patient Education: Patient Medication Summary Completed 10/20/2013 Appointment: Valentina Smith WPtel: [address] [phone] [place] Injection 08/21/2013 Appointment: Aicha Thompson WPtel: [facility] [place] Follow up 07/31/2013 Visit Plan: Ulcer of knee healing-silver nitrate to granulation tissue-instructed patient to monitor and call if it does not completely heal for appointment-instructed on wound care-patient and mother verbalized understanding of plan. 07/24/2013 Patient Education: Patient Medication Summary Completed 07/24/2013 Patient Education: Patient Medication Summary Completed 07/24/2013 Appointment: Valentnia Smith WPtel: [address] [place], [place] [phone] Follow up 07/03/2013 Visit Plan: Ulcer-left knee-fibrous tissue removed from wound bed to reveal pink granulation tissue-wound cleansed and dressing applied. Instructed patient on wound care. Return in 10 days for follow up. 06/23/2013 Appointment: Valentina Smith WPtel: [address] [place], [place] [phone] Follow up 06/23/2013 Patient Education: Patient Medication Summary Completed 06/23/2013 Appointment: Valentina Smith WPtel: [address] [place], [place] [phone] Follow up 06/22/2013 Appointment: Aicah Thompson WPtel: [address] [place], [place] [phone] Follow up 06/22/2013 Visit Plan: Ulcer-left knee-fibrous tissue removed from wound bed to reveal pink granulation tissue-wound cleansed and dressing applied. Instructed patient on wound care. Return in 10 days for follow up. 06/12/2013 Appointment: Valentina Smith WPtel: [address] [place], [place] [phone] Follow up 06/12/2013 Patient Education: Patient Medication Summary Completed 06/12/2013 Appointment: Aicha Thompson WPtel: [address] [place], [place] [phone] Follow up 06/08/2013 Visit Plan: Ulcer left gump-ujbzmpmt-x/u in 10 days 05/29/2013 Appointment: Valentina Smith WPtel: [address] [place], [place] [phone] Follow up 05/29/2013 Patient Education: Patient Medication Summary Completed 05/29/2013 Visit Plan: Ulcer of knee-sharp debridement today in the office--wound care instructions provided for patient-patient and mother verbalized understanding of plan. Follow up next week. 05/23/2013 Appointment: Valentina Smith WPtel: [address] [place] [address] Follow up 05/23/2013 Patient Education: Patient Medication Summary Completed 05/23/2013 Appointment: Valentina Smith WPtel: [address] [place] [address] Follow up 05/22/2013 Visit Plan: Ulcer of knee-wound care instructions provided for patient-patient and mother verbalized understanding of plan. 05/19/2013 Appointment: Valentina Smith WPtel: [address] [place] [address] 05/19/2013 Patient Education: Patient Medication Summary Completed 05/19/2013 Visit Plan: Ulcer of knee-fibrous tissue debrided today in the office--wound care instructions provided for patient-return in 1 week for follow up. 05/16/2013 Appointment: Valentina Smith WPtel: [address] [place] [address] follow up 05/16/2013 Patient Education: Patient Medication Summary Completed 05/16/2013 Appointment: Aicha Thompson WPtel: [address] [place] [address] Injection 05/10/2013 Patient Education: Patient Medication Summary [...] the office. 03/06/2013 Appointment: [phone] Other 03/06/2013 Patient Education: Patient Medication Summary Completed 03/06/2013 Appointment: Aicha Thompson WPtel: [facility] Nurse Visit 02/20/2013 Patient Education: Patient Medication Summary Completed 02/20/2013 Appointment: Aicha Thompson WPtel: [facility] Follow up 01/16/2013 Visit Plan: Joint pain [...] acute concerns. 12/26/2012 Appointment: Aicha Thompson [facility]Ptel: [facility] [place] Other 12/26/2012 Patient Education: Patient Medication Summary Completed 12/26/2012 Patient Education: Hypertension Completed 12/26/2012 Appointment: Aicha Thompson WPtel: [phone] [place] Lab Draw 12/21/2012 Patient [...] acute changes 11/21/2012 Appointment: Aicha Thompson WPtel: [address] [place] [address] [place] Follow up 11/21/2012 Patient Education: Patient Medication Summary Completed 11/21/2012 Patient Education: Hypertension Completed 11/21/2012 Appointment: Aicha Thompson WPtel: [address] [place] [address] [place] Injection 11/16/2012 Patient Education: Patient Medication Summary Completed 11/16/2012 Appointment: Aicha Thompson WPtel: [facility] [place] Injection 09/28/2012 Patient Education: Patient Medication Summary Completed 09/28/2012 Appointment: Aicha Thompson WPtel: [address] [place] [address] [place] Injection 09/26/2012 Patient Education: Patient Medication Summary Completed 09/26/2012 Appointment: Aicha Thompson WPtel: [address] [place] [address] [place] Injection 09/12/2012 Patient Education: Patient Medication Summary Completed 09/12/2012 Appointment: Aicha hTompson WPtel: [facility] [place] Injection 08/11/2012 Patient Education: [...] management sparingly. 07/13/2012 Appointment: Aich[facility] Thompson [facility]Ptel: [facility] [place] Other 07/13/2012 Patient Education: [...] in medications 05/26/2012 Appointment: Valentina Smith WPtel: [phone] Other 05/26/2012 Patient Education: Patient Medication Summary Completed 05/26/2012 Appointment: Valentina Smith WPtel: [phone] Sick 03/15/2012 Appointment: Aicha Thompson WPtel: [facility] Injection 03/02/2012 Patient Education: Patient Medication Summary [...] the medication. 02/15/2012 Appointment: Valentina Smith WPtel: [address] [place], [place] [phone] Other 02/15/2012 Patient Education: Patient Medication Summary [...] medications 01/13/2012 Appointment: Valentina Smith WPtel: [phone] Other 01/13/2012 Patient Education: Patient Medication Summary Completed 01/13/2012 Appointment: Valentina Smith WPtel: [phone] Other 01/06/2012 Visit Plan: Asthma - chest xray and symbicort sample today. Patellofemoral syndrome- recommended physical therapy. Costochondritis - recommended pt to use antiinflammatories as able for treatment of rib/sternum irritation and for pt to call if her symptoms do not improve. 12/21/2011 Appointment: Aicha Thompson WPtel: [facility] Other 12/21/2011 Patient Education: Patient Medication Summary [...] office. 10/02/2011 Appointment: Valentina Smith WPtel: 1015 [facility] Other 10/02/2011 Patient Education: Patient Medication Summary Completed 10/02/2011 Visit Plan: Pain in joints-arms, elbows-recent fall- discussed natural and expected course of this diagnosis and to alert me if symptoms do not follow expected course, or if any worse. Patient verbalized understanding. Neck fukp-svsynoy-guhnybklb physical therapy-patient declined at this time-going to see the barrel turner this afternoon. B12 deficiency-B12 injection today in the office. 09/01/2011 Appointment: Mauri Smithie WPtel: [phone] [place] Other 09/01/2011 Patient Education: Patient Medication [...] management sparingly. 08/03/2011 Appointment: Aicha Thompson WPtel: [facility] [place] Follow up 08/03/2011 Patient Education: Patient [...] HER PAIN. 06/29/2011 Appointment: Aicha Thompson [facility]el[facility] [place] Follow up 06/29/2011 Patient Education: Patient Medication Summary Completed 06/29/2011 Appointment: Aicha Thompson [facility]Ptel: [facility] Other 06/24/2011 Visit Plan: Right knee pain, bilateral wrist pain-recent fall-discussed natural and expected course of this diagnosis and to alert me if symptoms do not follow expected course, or if any worse. Patient verbalized understanding. Recommend follow up with Ortho physician if pain persists. 06/22/2011 Appointment: Valentina Smith WPtel: [id number] [place] Other 06/22/2011 Patient Education: Patient Medication Summary Completed 06/22/2011 Visit Plan: Knee and Ankle pain and instability- recommend re-evaluation by an audit specialist at [facility] the [address] [place] [address]. Pt has been recommended to go back to Dr. Corbin at [facility] the [address] [place] [address] as my office did not get a [...] fibromyalgia. 06/11/2011 Appointment: Aicha Thompson WPtel: [facility] [place] Injection 06/11/2011 Appointment: Aicha Thompson [facility]Ptel: [id number] [place] Other 06/11/2011 Patient Education: Patient Medication Summary Completed 06/11/2011 Visit Plan: Knee and Ankle pain and instability- recommend evaluation by an audit specialist at [facility]. [...] physical appearance. 03/11/2011 Appointment: Aicha Thompson WPtel: [facility] [place] 03/11/2011 Patient Education: Patient Medication Summary Completed 03/11/2011 Patient Education: .Amazing charts Diabetic meal planning guide Completed 03/11 Appointment: Aicha Thompson WPtel: [facility] [place] Injection 02/23/2011 Patient Education: Patient Medication Summary Completed 02/23/2011 Visit Plan: iliotibial band syndrome - continue with current treatment per barrel turner. I have recommend use of biofreeze to the right outer leg. I have given pt stretching exercises for home. Fibromyalgia - chronic - continue with exercise, heat, and prn pain medication. Knee pain - apparently resolved prior to her appointment today. No change in present management, call if pain returns. 02/12/2011 Appointment: Aicha Thompson [facility]Ptel[facility] [place] 02/12/2011 Patient Education: Patient Medication Summary [...] Medication Summary Completed 01/29/2011 Instructions Comment . Cervicalgia-MRI neck without contrast for further evaluation for further evaluation of persistent neck pain despite PT. . Overweight - chronic issue with this [...] ankle weakness/pain-recommend physical therapy for strengthening . Hypertension - well controlled - continue [...] Mary to keep appts with her psychiatrist. Dr Saunders -[facility] . Bilateral foot and ankle pain-now has AFOs-we have made her several appt with podiatrists which she has not kept-recommend patient call Dr Saunders and reschedule appt with him. Neck pain-[facility] appt next week-KEEP APPOINTMENT! sleep study -[facility] . Headaches-patient is not wearing her CPAP and i suspect this may be contributing to her headaches-will contact [facility] for a new sleep study Neck pain -spinal stenosis -[facility] has attempted to contact patient with no response from Mary-I have instructed her to call them and get appt scheduled . Hemorrhoidal skin tag-no acute inflammation today -may use hemorrhoid cream as directed as needed-call with any concerns, bleeding, etc. MAKE APPOINTMENT CALLY KELLY/DR IBARRA TO FOLLOW [...] for PT-recommend appt with Dr Ibarra . Hypertension - well controlled - continue [...] B12 injection today in the office . Neck pain-plan to xray cervical spine-refer to ortho as appropriate-patient verbalized understanding of plan. MRI RIGHT ANKLE NEOSPORIN TO SORE RIGHT [...] in 10 days for follow up. . Hypertension - well controlled - continue [...] understands the consequences of over- medication. . Hypertension - well controlled - continue [...] directed, and understands the consequences of over-medication. Tamitha is to continue to taper down on [...] worsening gait stability and falling episodes. . Chronic Pain Syndrome - pt has chronic pain - has been maintained on current medications, has not sought out other medications, only uses PRN pain medications as directed, and understands the consequences of over- medication. Right hip/knee/ankle pain-improving since last fall-continue physical therapy exercises-continue supportive shoes and use walker for stability . Teddy referral - pt to indicate when and who she would like to go to - for neck and back AFO for both legs - [facility] in [place], [place]- fax # [phone] pt has been seen by critical care nurse specialist - need brace because of bilateral [...] the instructions given to her from her model maker fiberglass and she is to call him if her constipation is uncontrolled. Hemorrhoids-use suppositories as directed. . Anxiety-fairly well controlled-does have added stress with family-no change in medications-call if symptoms worsen Neck pain-recommend rest, ice and anti inflammatories as directed-call if symptoms do not resolve or if any worse. Patient verbalized understanding of plan. . iliotibial band syndrome - continue with current treatment per barrel turner. I have recommend use of biofreeze to [...] with Ortho physician if pain persists. . Ulcer left eepe-kwjhoxaj-y/u in 10 days INCREASE HYDROCODONE TO 5 TABS/DAY-IF PAIN UNCONTROLLED, [...] therapy. Patient verbalized understanding of plan. . Chronic Depression [...] in blood pressure readings at home. . Neck pain after fall - Will check x-ray, Pt is to follow up with Dr. Perez. Pt is to notify clinic if symptoms do not improve, if they worsen, or with any questions or concerns. . Headaches-neck pain-patient is to let us know which neurologist she wants to see B12 def-injection today in the office Hyperlipidemia-check labs Vitamin D def-check level . Joint pain - again reassured Iker [...] at home. Hyperlipidemia - check labs . Low back pain-discussed need to evaluate cervical issues first-may benefit from PT-continue anti inflammatories as directed Cervical stenosis-called Dr Ramey's office-referral pending-they will call the patient with the appt . Knee and Ankle pain and instability- recommend re- evaluation by an audit specialist at [facility] [address] [place] [address]. Pt has been recommended to go back to Dr. Corbin at [facility] [address] [place] [address] as my office did not get a [...] savella for treatment of fibromyalgia. REFER TO [facility] DX BILATERAL FOOT AND ANKLE PAIN . Bilateral foot pain-foot drop-patient getting AFOs-refer to podiatry for evaluation-wants to see someone in [place] [facility]K [facility] B[facility]IN Call [facility] [...] list of the neurologists that her extrusion machine operator has recommended and we would consider a [...] list of the neurologists that her extrusion machine operator has recommended and we would consider a [...] if any worse. Patient verbalized understanding. Neck ricw-vozaior-ydyufxwlw physical therapy-patient declined at this time- going to see the barrel turner this afternoon. B12 deficiency-B12 injection today in [...] and understands the consequences of over-medication. . Hypertension - well controlled - continue [...] labs Vitamin d deficiency-check vitamin d level May use tylenol as needed for pain [...] wear her CPAP the past few days. Opddhcj-fsfwwar-rlnvgrlej patient continue taper of medication as discussed with Dr Thompson -continue counseling . Generalized abd gllx-XAA-wtjpgr cipro/flagyl-culture urine-recommend patient follow up with Dr Grace for an appt if abdominal pain does not improve Low potassium-check labs . Generalized abd ckli-IEV-wyigxc cipro/flagyl-culture urine-recommend patient follow up with Dr [...] for acute changes B12 injection . Neck ohxi-efhhdmb-qlxrpmx to continue f/u with [facility]-her symptoms have [...] regimen-no changes in medications Dr. Ramey - [facility] . Hypertension - well controlled - continue [...] response to medications. Cervical stenosis-saw Dr Ramey-Dr aRmey is going to send her to for further evaluation Check labs-cbc, cmp, tsh, lipid panel-I gave you a prescription to take to [facility]. DO NOT EAT 8-12 hours before [...] up in 1 month Anemia-check labs . Allergies - chronic - recommended pt [...] today in the office. . Ulcer of ilpm-steozhq-rpikj instructions provided today and instructed patient to return as directed-keep wound clean and dry. Hemorrhoids-refill anusol suppositories and use as directed B12 deficiency-b12 injection today in the office Mwrlwqbjo-dfslsthdynsw-ymeykks injection today in the office-continue oral medications as directed . Ulcer of knee healing-silver nitrate to granulation tissue-instructed patient to monitor and call if it does not completely heal for appointment-instructed on wound care-patient and mother verbalized understanding of plan. . Knee and Ankle pain and instability- recommend evaluation by an audit specialist at [facility]. [...] (may be called three old goats) at [employer] and home. . Hypertension - well controlled [...] with Dr. Grace before her next infusion TAPER OFF DIAZEPAM -DECREASE TO THREE TIMES [...]
--- OUTSIDE RECORDS SUMMARY | 2018-08-03 06:14 | XMS REPORT | CCD ---
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 Role Phone PP Unavailable CCM Unavailable Summary Purpose Interface Exchange Insurance Providers Payer name Policy type / Coverage type Covered alliance party ID Effective Begin Date Effective End Date WPS Medicare Part B Medicare Part B [id number] 2013 Unknown [facility] Medicare Part B [id number] 2013 Unknown Family history Grandmother Diagnosis Age [...] status Unknown 01/29/[address]: 263860283 Never smoker 01/29/[address]: 404925 Currently drinks alcohol mixed drink before bed [...] Codes Condition Status Onset Date Resolved Date Essential (primary) hypertension ICD-9: 401.1 ICD-10: I10 [...] sleep apnea Unknown Active 05/14/2011 Unknown 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 03/11/2011 Unknown Overweight (BMI [...] Problems Condition Codes Effective Dates Condition Status Essential (primary) hypertension ICD-9: 401.1 ICD-10: I10 [...] Active sleep apnea Unknown 05/14/2011 Active 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 03/11/2011 Active Overweight (BMI 25.0-29.9) [...] Start Date Stop Date Status Fill Instructions Vitamin D2 50,000 unit capsule RxNorm: 9335795 1 CAPSULE(S) PO QW X8 WEEKS 07/08/2018 09/05/2018 Active Patient requests 90 days supply Vitamin D2 50,000 unit capsule RxNorm: 3775198 1 Capsule(s) PO QW x8 weeks 07/08/2018 07/07/2018 Inactive Vitamin D2 50,000 unit capsule RxNorm: 1549657 1 Capsule(s) PO QW x8 weeks 07/08/2018 07/07/2018 Inactive diazepam 5 mg tablet RxNorm: 032913 1 Tablet(s) PO BID 201807/27/2018 Active tramadol 50 mg tablet RxNorm: 673841 1-2 Tablet(s) PO TID as needed 06/27/2018 08/25/2018 Active Claritin-D 12 Hour 5 mg-120 mg tablet,extended release RxNorm: 3495693 Tablet(s) as needed TAKE 1 TABLET BY MOUTH TWICE DAILY NEEDED 201808/13/2018 Active diazepam 5 mg tablet RxNorm: 440348 2 Tablet(s) (10 mg) PO QAM and 1 Tablet (5 mg ) PO QHS 06/15/2018 07/04/2018 Inactive Lipitor 20 mg tablet RxNorm: 115033 1 TABLET(S) PO DAILY 201705/12/2019 Active TAKE ONE TABLET BY MOUTH EVERY NIGHT AT BEDTIME tramadol 50 mg tablet RxNorm: 850846 1-2 Tablet(s) PO TID as needed 04/20/2018 06/17/2018 Inactive Valium 10 mg tablet RxNorm: 496797 1 Tablet(s) daily as needed 04/18/2018 05/31/2018 Inactive hydrocodone 10 mg-acetaminophen 325 mg tablet RxNorm: 214036 1 tab bid x 1 week then daily x 2 weeks then stop Tablet(s) PO Q6 for pain 04/1805/10/2018 Inactive diazepam 10 mg tablet RxNorm: 776989 1 Tablet(s) BID 04/18/2018 06/14/2018 Inactive Claritin-D 12 Hour 5 mg-120 mg tablet,extended release RxNorm: 9926740 Tablet(s) as needed TAKE 1 TABLET BY MOUTH TWICE DAILY NEEDED 201706/11/2018 Inactive tramadol 50 mg tablet RxNorm: 409955 1-2 Tablet(s) PO TID as needed 03/10/2018 04/07/2018 Inactive cyanocobalamin (vit B-12) 1,000 mcg/mL injection solution RxNorm: 970351 1 Milliliter(s) Inj 03/10/2018 03/10/2018 Inactive Seroquel 100 mg tablet RxNorm: 530683 1 TABLET(S) PO BID 201703/01/2019 Active TAKE 1 TABLET BY MOUTH TWICE DAILY hydrocodone 10 mg-acetaminophen 325 mg tablet RxNorm: 025630 1-2 Tablet(s) PO Q6 as needed for pain 02/21/2018 03/09/2018 Inactive Ventolin HFA 90 mcg/actuation aerosol inhaler RxNorm: 941329 1 OR 2 PUFF(S) INH Q6 PRN NEEDED 01/13/2018 07/11/2018 Active trazodone 100 mg tablet RxNorm: 222405 TABLET(S) TAKE 2 TABLETS BY MOUTH EVERY NIGHT AT BEDTIME 12/07/2017 09/02/2018 Active hydrocodone 10 mg-acetaminophen 325 mg tablet RxNorm: 370257 1-2 Tablet(s) PO Q6 as needed for pain 12/03/2017 12/25/2017 Inactive Ventolin HFA 90 mcg/actuation aerosol inhaler RxNorm: 718476 1 OR 2 PUFF(S) INH Q6 PRN NEEDED 11/26/2017 01/12/2018 Inactive Savella 100 mg tablet RxNorm: 426479 TABLET(S) PO TAKE 1 TABLET BY MOUTH DAILY 11/23/2017 No Stop Date Active Effexor XR 150 mg capsule,extended release RxNorm: 328569 1 CAPSULE(S) PO BID 1 CAPSULE(S) PO BID 11/23/2017 04/21/2018 Inactive TAKE 1 CAPSULE BY MOUTH TWICE DAILY diazepam 10 mg tablet RxNorm: 362789 Tablet(s) TAKE 1 TABLET BY MOUTH FOUR TIMES DAILY NEEDED 11/23/2017 03/09/2018 Inactive Claritin-D 12 Hour 5 mg-120 mg tablet,extended release RxNorm: 2867488 Tablet(s) as needed TAKE 1 TABLET BY MOUTH TWICE DAILY NEEDED 201706/14/2018 Inactive Valium 10 mg tablet RxNorm: 253433 1 Tablet(s) QID as needed 11/16/2017 01/14/2018 Inactive metoprolol tartrate 25 mg tablet RxNorm: 888837 TABLET(S) TABLET(S) 1/2 TABLET(S) PO BID TAKE 1/2 TABLET BY MOUTH TWICE DAILY 11/12/2017 No Stop Date Active pantoprazole 40 mg tablet,delayed release RxNorm: 901443 TAKE 1 TABLET BY MOUTH EVERY DAY 11/12/2017 05/10/2018 Inactive betamethasone dipropionate 0.05 % topical cream RxNorm: 361605 1 APPLICATION TOP BID 10/22/2017 11/04/2017 Inactive tramadol 50 mg tablet RxNorm: 107319 1-2 Tablet(s) PO TID as needed 10/20/2017 01/16/2018 Inactive prednisone 10 mg tablets in a dose pack RxNorm: 195378 1 Tablet(s) PO UD 10/19/2017 10/24/2017 Inactive 6-5-4-3-2-1 cyanocobalamin (vit B-12) 1,000 mcg/mL injection solution RxNorm: 322402 1 Milliliter(s) Inj 10/19/2017 10/19/2017 Inactive betamethasone dipropionate 0.05 % topical cream RxNorm: 694271 1 Application TOP BID 10/19/2017 10/21/2017 Inactive hydrocodone 10 mg-acetaminophen 325 mg tablet RxNorm: 496304 1-2 Tablet(s) PO Q6 as needed for pain 10/19/2017 11/10/2017 Inactive Effexor XR 150 mg capsule,extended release RxNorm: 396018 1 Capsule(s) PO BID 1 CAPSULE(S) PO BID 10/19/2017 11/22/2017 Inactive TAKE 1 CAPSULE BY MOUTH TWICE DAILY prednisone 5 mg tablet RxNorm: 652250 1 Tablet(s) PO UD 2017 No Stop Date Active Cipro 500 mg tablet RxNorm: 022494 1 Tablet(s) PO BID 201709/26/2017 Inactive Flagyl 500 mg tablet RxNorm: 476240 1 Tablet(s) PO TID 201709/26/2017 Inactive prednisone 10 mg tablet RxNorm: 602956 1 Tablet(s) PO UD 201709/16/2017 Inactive 2 tabs daily x 3 days 1 tab daily x 3 daily then resume usual 5mg daily hydrocodone 10 mg-acetaminophen 325 mg tablet RxNorm: 597584 1-2 Tablet(s) PO Q6 as needed for pain 09/10/2017 10/02/2017 Inactive Savella 100 mg tablet RxNorm: 803621 TABLET(S) PO TAKE 1 TABLET BY MOUTH DAILY 08/31/2017 No Stop Date Active cyanocobalamin (vit B-12) 1,000 mcg/mL injection solution RxNorm: 109316 1 Milliliter(s) Inj 08/19/2017 08/19/2017 Inactive pantoprazole 40 mg tablet,delayed release RxNorm: 187770 TAKE 1 TABLET BY MOUTH EVERY DAY 08/17/2017 11/11/2017 Inactive trazodone 100 mg tablet RxNorm: 179390 TABLET(S) TAKE 2 TABLETS BY MOUTH EVERY NIGHT AT BEDTIME 08/17/2017 12/06/2017 Inactive Ventolin HFA 90 mcg/actuation aerosol inhaler RxNorm: 791241 1 OR 2 PUFF(S) INH Q6 PRN NEEDED 08/11/2017 01/07/2018 Inactive Advair Diskus 250 mcg-50 mcg/dose powder for inhalation RxNorm: 8546464 1 Puff(s) INH BID 08/11/2017 12/08/2017 Inactive Advair Diskus 250 mcg-50 mcg/dose powder for inhalation RxNorm: 2047837 1 PUFF(S) INH BID 08/11/2017 11/08/2017 Inactive Ventolin HFA 90 mcg/actuation aerosol inhaler RxNorm: 386062 1 OR 2 PUFF(S) INH Q6 PRN NEEDED 08/11/2017 11/25/2017 Inactive hydrocodone 10 mg-acetaminophen 325 mg tablet RxNorm: 184823 1-2 Tablet(s) PO Q6 as needed for pain 08/03/2017 08/25/2017 Inactive tramadol 50 mg tablet RxNorm: 195208 1-2 Tablet(s) PO TID as needed 07/26/2017 04/19/2018 Inactive Valium 10 mg tablet RxNorm: 360327 1 Tablet(s) QID as needed 07/09/2017 09/06/2017 Inactive Effexor XR 150 mg capsule,extended release RxNorm: 808280 Capsule(s) 1 CAPSULE(S) PO BID 07/07/2017 10/18/2017 Inactive TAKE 1 CAPSULE BY MOUTH TWICE DAILY metoprolol tartrate 25 mg tablet RxNorm: 524837 Tablet(s) TABLET(S) 1/2 TABLET(S) PO BID TAKE 1/2 TABLET BY MOUTH TWICE DAILY 07/07/2017 11/11/2017 Inactive diazepam 10 mg tablet RxNorm: 109638 Tablet(s) TAKE 1 TABLET BY MOUTH FOUR TIMES DAILY NEEDED 07/07/2017 08/02/2017 Inactive cyanocobalamin (vit B-12) 1,000 mcg/mL injection solution RxNorm: 951713 1 Milliliter(s) Inj 07/06/2017 07/06/2017 Inactive tramadol 50 mg tablet RxNorm: 810969 1-2 Tablet(s) PO TID as needed 06/21/2017 09/17/2017 Inactive hydrocodone 10 mg-acetaminophen 325 mg tablet RxNorm: 839200 1-2 Tablet(s) PO Q6 as needed for pain 06/17/2017 07/09/2017 Inactive cyclobenzaprine 10 mg tablet RxNorm: 478223 TAKE 1 TABLET BY MOUTH THREE TIMES DAILY NEEDED FOR MUSCLE SPASMS 06/08/2017 08/31/2018 Active Claritin-D 12 Hour 5 mg-120 mg tablet,extended release RxNorm: 0480395 Tablet(s) as needed TAKE 1 TABLET BY MOUTH TWICE DAILY NEEDED 201709/04/2017 Inactive Lipitor 20 mg tablet RxNorm: 035807 1 TABLET(S) PO DAILY 201705/17/2018 Inactive TAKE ONE TABLET BY MOUTH EVERY NIGHT AT BEDTIME trazodone 100 mg tablet RxNorm: 597693 TABLET(S) TAKE 2 TABLETS BY MOUTH EVERY NIGHT AT BEDTIME 05/17/2017 08/14/2017 Inactive cyclobenzaprine 5 mg tablet RxNorm: 656981 Tablet(s) PO TAKE 1 TABLET BY MOUTH THREE TIMES DAILY NEEDED FOR MUSCLE SPASMS (New dose has not been sent to pharmacy) 05/11/2017 No Stop Date Active Valium 5 mg tablet RxNorm: 849072 1 Tablet(s) PO QID as needed (New dose has not been sent to pharmacy) 05/11/2017 Inactive diazepam 10 mg tablet RxNorm: 019416 TAKE 1 TABLET BY MOUTH FOUR TIMES DAILY NEEDED 04/28/2017 05/27/2017 Inactive hydrocodone 10 mg-acetaminophen 325 mg tablet RxNorm: 602722 1-2 Tablet(s) PO Q6 as needed for pain 04/27/2017 05/19/2017 Inactive cyanocobalamin (vit B-12) 1,000 mcg/mL injection solution RxNorm: 993564 1 Milliliter(s) Inj 04/27/2017 04/27/2017 Inactive hydrocodone 10 mg-acetaminophen 325 mg tablet RxNorm: 208037 1-2 Tablet(s) PO Q6 as needed for pain 03/17/2017 04/08/2017 Inactive Seroquel 100 mg tablet RxNorm: 668363 1 TABLET(S) PO BID 201603/06/2018 Inactive TAKE 1 TABLET BY MOUTH TWICE DAILY Valium 10 mg tablet RxNorm: 448924 1 Tablet(s) QID as needed 03/05/2017 05/03/2017 Inactive Claritin-D 12 Hour 5 mg-120 mg tablet,extended release RxNorm: 5485291 Tablet(s) as needed TAKE 1 TABLET BY MOUTH TWICE DAILY NEEDED 201604/13/2018 Inactive pantoprazole 40 mg tablet,delayed release RxNorm: 044534 TAKE 1 TABLET BY MOUTH EVERY DAY 02/26/2017 08/16/2017 Inactive tramadol 50 mg tablet RxNorm: 141224 1-2 Tablet(s) PO TID as needed 02/17/2017 05/17/2017 Inactive hydrocodone 10 mg-acetaminophen 325 mg tablet RxNorm: 163113 1-2 Tablet(s) PO Q6 as needed for pain 02/17/2017 03/11/2017 Inactive Valium 10 mg tablet RxNorm: 148019 1 Tablet(s) QID as needed 02/02/2017 03/03/2017 Inactive (Response to an electronic controlled substance refill request - RxReferenceNumber: [id number]|1|0|1) nystatin 100,000 unit/gram topical powder RxNorm: 610536 1 APPLICATION TOP QID UNTIL HEALED 01/21/2017 No Stop Date Active Advair Diskus 250 mcg-50 mcg/dose powder for inhalation RxNorm: 5464620 1 Puff(s) INH BID 01/21/2017 05/20/2017 Inactive hydrocodone 10 mg-acetaminophen 325 mg tablet RxNorm: 961160 1-2 Tablet(s) PO Q6 as needed for pain 01/21/2017 02/11/2017 Inactive metoprolol tartrate 25 mg tablet RxNorm: 990958 TABLET(S) 1/2 TABLET(S) PO BID TAKE 1/2 TABLET BY MOUTH TWICE DAILY 01/18/2017 07/06/2017 Inactive Effexor XR 150 mg capsule,extended release RxNorm: 202502 1 CAPSULE(S) PO BID 01/11/2017 07/06/2017 Inactive TAKE 1 CAPSULE BY MOUTH TWICE DAILY Effexor XR 150 mg capsule,extended release RxNorm: 182874 1 Capsule(s) PO BID 1 CAPSULE(S) PO BID 01/08/2017 07/06/2017 Inactive TAKE 1 CAPSULE BY MOUTH TWICE DAILY nystatin 100,000 unit/gram topical powder RxNorm: 323654 1 APPLICATION TOP QID UNTIL HEALED 12/17/2016 01/20/2017 Inactive hydrocodone 10 mg-acetaminophen 325 mg tablet RxNorm: 273492 1-2 Tablet(s) PO Q6 as needed for pain 12/17/2016 01/07/2017 Inactive Claritin-D 12 Hour 5 mg-120 mg tablet,extended release RxNorm: 2150171 Tablet(s) as needed TAKE 1 TABLET BY MOUTH TWICE DAILY NEEDED 201602/12/2017 Inactive Lipitor 20 mg tablet RxNorm: 411820 1 TABLET(S) PO DAILY 201606/07/2017 Inactive TAKE ONE TABLET BY MOUTH EVERY NIGHT AT BEDTIME Advair Diskus 250 mcg-50 mcg/dose powder for inhalation RxNorm: 4566275 1 Puff(s) INH BID 11/26/2016 01/20/2017 Inactive Valium 10 mg tablet RxNorm: 040238 1 Tablet(s) QID as needed 11/24/2016 01/22/2017 Inactive (Response to an electronic controlled substance refill request - RxReferenceNumber: [id number]|1|0|1) cyanocobalamin (vit B-12) 1,000 mcg/mL injection solution RxNorm: 583684 1 Milliliter(s) Inj 11/17/2016 11/17/2016 Inactive tramadol 50 mg tablet RxNorm: 939859 1-2 Tablet(s) PO TID as needed 11/06/2016 10/19/2017 Inactive hydrocodone 10 mg-acetaminophen 325 mg tablet RxNorm: 091233 1-2 Tablet(s) PO Q6 as needed for pain 11/06/2016 11/27/2016 Inactive nystatin 100,000 unit/gram topical powder RxNorm: 826888 1 Application TOP QID until healed 10/27/2016 12/16/2016 Inactive cyanocobalamin (vit B-12) 1,000 mcg/mL injection solution RxNorm: 388993 1 Milliliter(s) Inj 10/12/2016 10/12/2016 Inactive trazodone 100 mg tablet RxNorm: 167283 Tablet(s) TAKE 2 TABLETS BY MOUTH EVERY NIGHT AT BEDTIME 09/24/2016 03/22/2017 Inactive Valium 10 mg tablet RxNorm: 301985 1 Tablet(s) QID as needed 09/24/2016 11/22/2016 Inactive (Response to an electronic controlled substance refill request - RxReferenceNumber: [id number]|1|0|1) Savella 100 mg tablet RxNorm: 122357 TABLET(S) PO TAKE 1 TABLET BY MOUTH DAILY 09/18/2016 08/30/2017 Inactive pantoprazole 40 mg tablet,delayed release RxNorm: 605807 TAKE 1 TABLET BY MOUTH EVERY DAY 09/18/2016 02/25/2017 Inactive cyanocobalamin (vit B-12) 1,000 mcg/mL injection solution RxNorm: 044840 1 Milliliter(s) Inj 09/11/2016 09/11/2016 Inactive hydrocodone 10 mg-acetaminophen 325 mg tablet RxNorm: 307966 1-2 Tablet(s) PO Q6 as needed for pain 08/24/2016 11/05/2016 Inactive (Response to an electronic controlled substance refill request - RxReferenceNumber: [id number]|1|0|1) Claritin-D 12 Hour 5 mg-120 mg tablet,extended release RxNorm: 4855252 Tablet(s) TAKE 1 TABLET BY MOUTH TWICE DAILY NEEDED 08/13/2016 04/13/2018 Inactive tramadol 50 mg tablet RxNorm: 269950 1-2 Tablet(s) PO TID PRN as needed 08/11/2016 11/05/2016 Inactive metoprolol tartrate 25 mg tablet RxNorm: 457320 TABLET(S) 1/2 TABLET(S) PO BID TAKE 1/2 TABLET BY MOUTH TWICE DAILY 08/10/2016 01/17/2017 Inactive pantoprazole 40 mg tablet,delayed release RxNorm: 375617 TAKE 1 TABLET BY MOUTH EVERY DAY 08/10/2016 11/05/2016 Inactive Savella 100 mg tablet RxNorm: 547050 TABLET(S) PO TAKE 1 TABLET BY MOUTH DAILY 08/10/2016 11/05/2016 Inactive Ventolin HFA 90 mcg/actuation aerosol inhaler RxNorm: 112983 1 OR 2 PUFF(S) INH Q6 PRN NEEDED 08/07/2016 02/02/2017 Inactive Diflucan 150 mg tablet RxNorm: 412786 1 Tablet(s) PO daily 08/201608/13/2016 Inactive nystatin 100,000 unit/mL oral suspension RxNorm: 956078 5 Milliliter(s) PO QID 08/07/2016 08/16/2016 Inactive hydrocodone 10 mg-acetaminophen 325 mg tablet RxNorm: 590938 1-2 Tablet(s) PO Q6 as needed for pain 08/04/2016 08/23/2016 Inactive (Response to an electronic controlled substance refill request - RxReferenceNumber: [id number]|1|0|1) Valium 10 mg tablet RxNorm: 495149 1 Tablet(s) QID as needed 07/20/2016 09/17/2016 Inactive (Response to an electronic controlled substance refill request - RxReferenceNumber: [id number]|1|0|1) tramadol 50 mg tablet RxNorm: 645273 1-2 Tablet(s) PO TID PRN as needed 07/15/2016 11/05/2016 Inactive ok to give 1 month rwzemt=477 tablets cyanocobalamin (vit B-12) 1,000 mcg/mL injection solution RxNorm: 702807 Milliliter(s) Inj 07/03/2016 07/03/2016 Inactive Seroquel 100 mg tablet RxNorm: 935131 1 TABLET(S) PO BID 201603/15/2017 Inactive TAKE 1 TABLET BY MOUTH TWICE DAILY hydrocodone 10 mg-acetaminophen 325 mg tablet RxNorm: 496904 1-2 Tablet(s) PO Q6 as needed for pain 06/26/2016 08/03/2016 Inactive (Response to an electronic controlled substance refill request - RxReferenceNumber: [id number]|1|0|1) Valium 10 mg tablet RxNorm: 020938 1 Tablet(s) QID as needed 05/11/2016 07/09/2016 Inactive (Response to an electronic controlled substance refill request - RxReferenceNumber: [id number]|1|0|1) tramadol 50 mg tablet RxNorm: 974923 1-2 Tablet(s) PO TID PRN as needed 05/11/2016 07/08/2016 Inactive ok to give 1 month drvtbc=911 tablets cyclobenzaprine 10 mg tablet RxNorm: 033139 TAKE 1 TABLET BY MOUTH THREE TIMES DAILY NEEDED FOR MUSCLE SPASMS 05/11/2016 05/10/2017 Inactive hydrocodone 10 mg-acetaminophen 325 mg tablet RxNorm: 593693 1-2 Tablet(s) PO Q6 as needed for pain 05/06/2016 06/25/2016 Inactive (Response to an electronic controlled substance refill request - RxReferenceNumber: [id number]|1|0|1) cyanocobalamin (vit B-12) 1,000 mcg/mL injection solution RxNorm: 296789 1 Milliliter(s) Inj 04/20/2016 04/20/2016 Inactive hydrocodone 10 mg-acetaminophen 325 mg tablet RxNorm: 718307 1-2 Tablet(s) PO Q6 as needed for pain 04/03/2016 05/05/2016 Inactive (Response to an electronic controlled substance refill request - RxReferenceNumber: [id number]|1|0|1) pantoprazole 40 mg tablet,delayed release RxNorm: 217679 TAKE 1 TABLET BY MOUTH EVERY DAY 04/02/2016 08/09/2016 Inactive Claritin-D 12 Hour 5 mg-120 mg tablet,extended release RxNorm: 2651117 Tablet(s) TAKE 1 TABLET BY MOUTH TWICE DAILY NEEDED 04/02/2016 11/05/2016 Inactive hydrocodone 10 mg-acetaminophen 325 mg tablet RxNorm: 712118 1-2 Tablet(s) PO Q6 as needed for pain 03/12/2016 04/02/2016 Inactive (Response to an electronic controlled substance refill request - RxReferenceNumber: [id number]|1|0|1) Effexor XR 150 mg capsule,extended release RxNorm: 277037 1 CAPSULE(S) PO BID 03/05/2016 01/07/2017 Inactive TAKE 1 CAPSULE BY MOUTH TWICE DAILY Ventolin HFA 90 mcg/actuation aerosol inhaler RxNorm: 098301 1 OR 2 PUFF(S) INH Q6 PRN NEEDED 02/19/2016 08/06/2016 Inactive cyanocobalamin (vit B-12) 1,000 mcg/mL injection solution RxNorm: 590700 Milliliter(s) Inj 02/13/2016 02/13/2016 Inactive hydrocodone 10 mg-acetaminophen 325 mg tablet RxNorm: 002708 1-2 Tablet(s) PO Q6 as needed for pain 02/05/2016 03/11/2016 Inactive (Response to an electronic controlled substance refill request - RxReferenceNumber: [id number]|1|0|1) Valium 10 mg tablet RxNorm: 181816 1 Tablet(s) QID as needed 02/05/2016 05/04/2016 Inactive (Response to an electronic controlled substance refill request - RxReferenceNumber: [id number]|1|0|1) tramadol 50 mg tablet RxNorm: 556195 1-2 Tablet(s) PO TID PRN as needed 02/05/2016 11/05/2016 Inactive ok to give 1 month rnzdjs=255 tablets hydrocodone 10 mg-acetaminophen 325 mg tablet RxNorm: 135412 1-2 Tablet(s) PO Q6 as needed for pain 01/08/2016 02/04/2016 Inactive (Response to an electronic controlled substance refill request - RxReferenceNumber: [id number]|1|0|1) metoprolol tartrate 25 mg tablet RxNorm: 095199 Tablet(s) 1/2 TABLET(S) PO BID TAKE 1/2 TABLET BY MOUTH TWICE DAILY 01/08/2016 08/09/2016 Inactive Symbicort 160 mcg-4.5 mcg/actuation HFA aerosol inhaler RxNorm: 4643563 2 INH BID 01/03/2016 11/25/2016 Inactive Symbicort 160 mcg-4.5 mcg/actuation HFA aerosol inhaler RxNorm: 4280849 1 INH daily 01/03/2016 01/02/2016 Inactive Lipitor 20 mg tablet RxNorm: 647333 1 TABLET(S) PO DAILY 201506/26/2016 Inactive TAKE ONE TABLET BY MOUTH EVERY NIGHT AT BEDTIME trazodone 100 mg tablet RxNorm: 292356 TAKE 2 TABLETS BY MOUTH EVERY NIGHT AT BEDTIME 12/30/2015 09/23/2016 Inactive Savella 100 mg tablet RxNorm: 486015 TABLET(S) PO TAKE 1 TABLET BY MOUTH DAILY 12/30/2015 08/09/2016 Inactive hydrocodone 10 mg-acetaminophen 325 mg tablet RxNorm: 774685 1-2 Tablet(s) PO Q6 as needed for pain 12/12/2015 01/07/2016 Inactive (Response to an electronic controlled substance refill request - RxReferenceNumber: [id number]|1|0|1) cyanocobalamin (vit B-12) 1,000 mcg/mL injection solution RxNorm: 395647 1 Milliliter(s) Inj 12/02/2015 12/02/2015 Inactive hydrocodone 10 mg-acetaminophen 325 mg tablet RxNorm: 822090 1-2 Tablet(s) PO Q6 as needed for pain 12/02/2015 12/11/2015 Inactive (Response to an electronic controlled substance refill request - RxReferenceNumber: [id number]|1|0|1) Claritin-D 12 Hour 5 mg-120 mg tablet,extended release RxNorm: 3011962 Tablet(s) TAKE 1 TABLET BY MOUTH TWICE DAILY 11/11/2015 11/10/2015 Inactive Claritin-D 12 Hour 5 mg-120 mg tablet,extended release RxNorm: 8757372 Tablet(s) TAKE 1 TABLET BY MOUTH TWICE DAILY NEEDED 11/11/2015 01/06/2016 Inactive tramadol 50 mg tablet RxNorm: 849826 1-2 Tablet(s) PO TID PRN as needed 11/05/2015 11/05/2016 Inactive ok to give 1 month rvfusc=831 tablets Valium 10 mg tablet RxNorm: 732278 1 Tablet(s) QID as needed 11/05/2015 02/02/2016 Inactive (Response to an electronic controlled substance refill request - RxReferenceNumber: [id number]|1|0|1) cyanocobalamin (vit B-12) 1,000 mcg/mL injection solution RxNorm: 645802 1 Milliliter(s) Inj 10/29/2015 10/29/2015 Inactive hydrocodone 10 mg-acetaminophen 325 mg tablet RxNorm: 922737 1-2 Tablet(s) PO Q6 as needed for pain 10/28/2015 12/01/2015 Inactive (Response to an electronic controlled substance refill request - RxReferenceNumber: [id number]|1|0|1) pantoprazole 40 mg tablet,delayed release RxNorm: 040150 TAKE 1 TABLET BY MOUTH EVERY DAY 10/08/2015 04/01/2016 Inactive Seroquel 100 mg tablet RxNorm: 038664 1 TABLET(S) PO BID 201506/29/2016 Inactive TAKE 1 TABLET BY MOUTH TWICE DAILY trazodone 100 mg tablet RxNorm: 957171 TAKE 2 TABLETS BY MOUTH EVERY NIGHT AT BEDTIME 10/08/2015 10/01/2016 Inactive Lipitor 20 mg tablet RxNorm: 814975 1 TABLET(S) PO DAILY 201504/04/2016 Inactive TAKE ONE TABLET BY MOUTH EVERY NIGHT AT BEDTIME hydrocodone 10 mg-acetaminophen 325 mg tablet RxNorm: 337884 1-2 Tablet(s) PO Q6 as needed for pain 09/19/2015 10/18/2015 Inactive (Response to an electronic controlled substance refill request - RxReferenceNumber: [id number]|1|0|1) Valium 10 mg tablet RxNorm: 726986 1 Tablet(s) QID as needed 09/05/2015 11/03/2015 Inactive (Response to an electronic controlled substance refill request - RxReferenceNumber: [id number]|1|0|1) Savella 100 mg tablet RxNorm: 285743 Tablet(s) PO TAKE 1 TABLET BY MOUTH DAILY 07/19/2015 11/05/2016 Inactive Zithromax Z-Lauro 250 mg tablet RxNorm: 445174 1 Tablet(s) PO UD 07/12/2015 11/04/2015 Inactive z lauro hydrocodone 10 mg-acetaminophen 325 mg tablet RxNorm: 664287 1-2 Tablet(s) PO Q6 as needed for pain 07/10/2015 08/08/2015 Inactive (Response to an electronic controlled substance refill request - RxReferenceNumber: [id number]|1|0|1) tramadol 50 mg tablet RxNorm: 459800 1-2 Tablet(s) PO TID PRN as needed 07/04/2015 11/05/2016 Inactive ok to give 1 month aiulwv=953 tablets hydrocodone 10 mg-acetaminophen 325 mg tablet RxNorm: 365164 1-2 Tablet(s) PO Q6 as needed for pain 06/10/2015 07/09/2015 Inactive (Response to an electronic controlled substance refill request - RxReferenceNumber: [id number]|1|0|1) cyanocobalamin (vit B-12) 1,000 mcg/mL injection solution RxNorm: 934168 Milliliter(s) Inj 06/10/2015 06/10/2015 Inactive pantoprazole 40 mg tablet,delayed release RxNorm: 238790 TABLET(S) PO TAKE 1 TABLET BY MOUTH EVERY DAY 06/10/201511/05 Inactive pantoprazole 40 mg tablet,delayed release RxNorm: 184083 Tablet(s) PO TAKE 1 TABLET BY MOUTH EVERY DAY 06/06/201511/05 Inactive tramadol 50 mg tablet RxNorm: 594239 1-2 Tablet(s) PO TID PRN as needed 05/29/2015 06/27/2015 Inactive ok to give 1 month bhroqi=109 tablets tramadol 50 mg tablet RxNorm: 299476 1-2 Tablet(s) PO Q6 as needed 05/29/2015 06/09/2015 Inactive Valium 10 mg tablet RxNorm: 383271 1 Tablet(s) QID as needed 05/08/2015 07/06/2015 Inactive (Response to an electronic controlled substance refill request - RxReferenceNumber: [id number]|1|0|1) cyclobenzaprine 10 mg tablet RxNorm: 562248 TAKE 1 TABLET BY MOUTH THREE TIMES DAILY NEEDED FOR MUSCLE SPASMS 05/08/2015 05/10/2016 Inactive Effexor XR 150 mg capsule,extended release RxNorm: 616944 1 Capsule(s) PO BID 1 CAPSULE(S) PO BID 05/08/2015 11/05/2016 Inactive TAKE 1 CAPSULE BY MOUTH TWICE DAILY hydrocodone 10 mg-acetaminophen 325 mg tablet RxNorm: 015847 1-2 Tablet(s) PO Q6 as needed for pain 05/08/2015 06/06/2015 Inactive (Response to an electronic controlled substance refill request - RxReferenceNumber: [id number]|1|0|1) metoprolol tartrate 25 mg tablet RxNorm: 911391 1/2 TABLET(S) PO BID TAKE 1/2 TABLET BY MOUTH TWICE DAILY 05/06/201507/2015 Inactive Claritin-D 12 Hour 5 mg-120 mg tablet,extended release RxNorm: 7074017 TAKE 1 TABLET BY MOUTH TWICE DAILY 04/16/201506/2016 Inactive hydrocodone 10 mg-acetaminophen 325 mg tablet RxNorm: 275098 1-2 Tablet(s) PO Q6 as needed for pain 04/15/2015 05/07/2015 Inactive (Response to an electronic controlled substance refill request - RxReferenceNumber: [id number]|1|0|1) pantoprazole 40 mg tablet,delayed release RxNorm: 149667 TABLET(S) PO TAKE 1 TABLET BY MOUTH EVERY DAY 04/08/201506/06 Inactive hydrocodone 10 mg-acetaminophen 325 mg tablet RxNorm: 974555 1 Tablet(s) PO Q4 PRN TAKE 1-2 TABLETS BY MOUTH EVERY 6 HOURS NEEDED FOR PAIN 03/14/2015 04/12/2015 Inactive (Response to an electronic controlled substance refill request - RxReferenceNumber: [id number]|1|0|1) diazepam 10 mg tablet RxNorm: 194485 1 Tablet(s) TID TAKE 1 TABLET BY MOUTH THREE TIMES DAILY NEEDED 02/08/20152016 Inactive (Response to an electronic controlled substance refill request - RxReferenceNumber: [id number]|1|0|1) Effexor XR 150 mg capsule,extended release RxNorm: 686785 1 CAPSULE(S) PO BID 02/07/2015 05/07/2015 Inactive TAKE 1 CAPSULE BY MOUTH TWICE DAILY cyclobenzaprine 10 mg tablet RxNorm: 753881 TAKE 1 TABLET BY MOUTH THREE TIMES DAILY NEEDED FOR MUSCLE SPASMS 02/07/2015 05/07/2015 Inactive pantoprazole 40 mg tablet,delayed release RxNorm: 431573 TABLET(S) PO TAKE 1 TABLET BY MOUTH EVERY DAY 02/07/201504/07 Inactive hydrocodone 10 mg-acetaminophen 325 mg tablet RxNorm: 099537 1 Tablet(s) PO Q4 PRN TAKE 1-2 TABLETS BY MOUTH EVERY 6 HOURS NEEDED FOR PAIN 01/25/2015 02/23/2015 Inactive (Response to an electronic controlled substance refill request - RxReferenceNumber: [id number]|1|0|1) Bactroban Nasal 2 % ointment RxNorm: 855414 1 Application NASAL BID 01/10/2015 01/10/2015 Inactive mupirocin 2 % topical ointment RxNorm: 906649 1 Application TOP TID 1 APPLICATION TOP PRN 01/10/2015 01/19/2015 Inactive disregard order for nasal ointment , use on left knee trazodone 100 mg tablet RxNorm: 841638 TAKE 2 TABLETS BY MOUTH EVERY NIGHT AT BEDTIME 01/08/2015 10/07/2015 Inactive Seroquel 100 mg tablet RxNorm: 514277 1 TABLET(S) PO BID 201410/04/2015 Inactive TAKE 1 TABLET BY MOUTH TWICE DAILY cyclobenzaprine 10 mg tablet RxNorm: 871496 TAKE 1 TABLET BY MOUTH THREE TIMES DAILY NEEDED FOR MUSCLE SPASMS 01/08/2015 02/06/2015 Inactive hydrocodone 10 mg-acetaminophen 325 mg tablet RxNorm: 554208 1 Tablet(s) PO Q4 PRN TAKE 1-2 TABLETS BY MOUTH EVERY 6 HOURS NEEDED FOR PAIN 12/21/2014 01/19/2015 Inactive (Response to an electronic controlled substance refill request - RxReferenceNumber: [id number]|1|0|1) pantoprazole 40 mg tablet,delayed release RxNorm: 989958 TABLET(S) PO TAKE 1 TABLET BY MOUTH EVERY DAY 12/13/201402/06 Inactive Lipitor 20 mg tablet RxNorm: 967184 1 Tablet(s) PO daily 201409/08/2015 Inactive TAKE ONE TABLET BY MOUTH EVERY NIGHT AT BEDTIME Valium 10 mg tablet RxNorm: 815055 1 Tablet(s) QID as needed 12/12/2014 02/09/2015 Inactive (Response to an electronic controlled substance refill request - RxReferenceNumber: [id number]|1|0|1) hydrocodone 10 mg-acetaminophen 325 mg tablet RxNorm: 142239 Tablet(s) TAKE 1-2 TABLETS BY MOUTH EVERY 6 HOURS NEEDED FOR PAIN 12/12/2014 12/20/2014 Inactive ( Response to an electronic controlled substance refill request - RxReferenceNumber: [id number]|1|0|1) Lipitor 20 mg tablet RxNorm: 595067 1 Tablet(s) PO daily 201412/12/2014 Inactive TAKE ONE TABLET BY MOUTH EVERY NIGHT AT BEDTIME pantoprazole 40 mg tablet,delayed release RxNorm: 582851 TABLET(S) PO TAKE 1 TABLET BY MOUTH EVERY DAY 12/06/201411/05 Inactive Savella 100 mg tablet RxNorm: 875109 Tablet(s) PO TAKE 1 TABLET BY MOUTH DAILY 12/06/2014 07/18/2015 Inactive Lipitor 20 mg tablet RxNorm: 869382 1 Tablet(s) PO daily 201412/10/2014 Inactive TAKE ONE TABLET BY MOUTH EVERY NIGHT AT BEDTIME Valium 10 mg tablet RxNorm: 554272 TAKE 1 TABLET BY MOUTH FOUR TIMES DAILY NEEDED FOR ANXIETY 12/06/2014 12/11/2014 Inactive Valium 10 mg tablet RxNorm: 120410 1 Tablet(s) QID as needed 11/13/2014 12/11/2014 Inactive (Response to an electronic controlled substance refill request - RxReferenceNumber: [id number]|1|0|1) hydrocodone 10 mg-acetaminophen 325 mg tablet RxNorm: 712845 Tablet(s) TAKE 1-2 TABLETS BY MOUTH EVERY 6 HOURS NEEDED FOR PAIN 11/13/2014 12/11/2014 Inactive ( Response to an electronic controlled substance refill request - RxReferenceNumber: [id number]|1|0|1) hydrocodone 10 mg-acetaminophen 325 mg tablet RxNorm: 710615 Tablet(s) TAKE 1-2 TABLETS BY MOUTH EVERY 6 HOURS NEEDED FOR PAIN 11/08/2014 11/12/2014 Inactive ( Response to an electronic controlled substance refill request - RxReferenceNumber: [id number]|1|0|1) Valium 10 mg tablet RxNorm: 533373 1 Tablet(s) QID as needed 11/08/2014 11/12/2014 Inactive (Response to an electronic controlled substance refill request - RxReferenceNumber: [id number]|1|0|1) metoprolol tartrate 25 mg tablet RxNorm: 225385 1/2 TABLET(S) PO BID TAKE 1/2 TABLET BY MOUTH TWICE DAILY 11/08/2014 Inactive Valium 10 mg tablet RxNorm: 000129 TAKE 1 TABLET BY MOUTH FOUR TIMES DAILY NEEDED FOR ANXIETY 11/06/2014 12/09/2014 Inactive Vitamin D2 50,000 unit capsule RxNorm: 628043 1 Capsule(s) PO QW 10/24/2014 10/23/2014 Inactive Vitamin D2 50,000 unit capsule RxNorm: 834968 1 Capsule(s) PO QW x 8 weeks 10/24/2014 12/22/2014 Inactive Entyvio 300 mg intravenous solution RxNorm: 2601532 IV 2014 No Stop Date Active hydrocodone 10 mg-acetaminophen 325 mg tablet RxNorm: 074957 Tablet(s) TAKE 1-2 TABLETS BY MOUTH EVERY 6 HOURS NEEDED FOR PAIN 10/05/2014 11/03/2014 Inactive ( Response to an electronic controlled substance refill request - RxReferenceNumber: [id number]|1|0|1) Valium 10 mg tablet RxNorm: 295392 TAKE 1 TABLET BY MOUTH EVERY 8 HOURS NEEDED 10/05/2014 11/03/2014 Inactive (Response to an electronic controlled substance refill request - RxReferenceNumber: [id number]|1|0|1) Valium 10 mg tablet RxNorm: 333309 1 Tablet(s) PO QID as needed TAKE 1 TABLET BY MOUTH 10/05/2014 11/05/2016 Inactive (Response to an electronic controlled substance refill request - RxReferenceNumber: [id number]|1|0|1) Valium 10 mg tablet RxNorm: 991438 TAKE 1 TABLET BY MOUTH THREE TIMES DAILY NEEDED 09/04/2014 10/03/2014 Inactive (Response to an electronic controlled substance refill request - RxReferenceNumber: [id number]|1|0|1) Valium 10 mg tablet RxNorm: 637104 1 Tablet(s) PO Q8 PRN as needed 09/04/2014 11/09/2014 Inactive hydrocodone 10 mg-acetaminophen 325 mg tablet RxNorm: 896720 Tablet(s) TAKE 1-2 TABLETS BY MOUTH EVERY 6 HOURS NEEDED FOR PAIN 08/27/2014 09/25/2014 Inactive ( Response to an electronic controlled substance refill request - RxReferenceNumber: [id number]|1|0|1) Claritin-D 12 Hour 5 mg-120 mg tablet,extended release RxNorm: 6244525 1 Tablet(s ) PO BID 08/27/2014 04/16/2015 Inactive Ventolin HFA 90 mcg/actuation aerosol inhaler RxNorm: 896910 1 or 2 Puff(s) INH Q6 PRN as needed 08/09/2014 03/06/2015 Inactive pantoprazole 40 mg tablet,delayed release RxNorm: 025110 Tablet(s) PO TAKE 1 TABLET BY MOUTH EVERY DAY 08/09/201408/08 Inactive pantoprazole 40 mg tablet,delayed release RxNorm: 665557 TAKE 1 TABLET BY MOUTH EVERY DAY 08/09/2014 11/05/2016 Inactive diazepam 10 mg tablet RxNorm: 942306 TAKE 1 TABLET BY MOUTH THREE TIMES DAILY NEEDED 07/02/2014 07/31/2014 Inactive (Response to an electronic controlled substance refill request - RxReferenceNumber: [id number]|1|0|1) Valium 10 mg tablet RxNorm: 447556 1 Tablet(s) PO Q8 PRN as needed 07/02/2014 07/01/2014 Inactive hydrocodone 10 mg-acetaminophen 325 mg tablet RxNorm: 952588 Tablet(s) TAKE 1-2 TABLETS BY MOUTH EVERY 6 HOURS NEEDED FOR PAIN 06/14/2014 07/13/2014 Inactive ( Response to an electronic controlled substance refill request - RxReferenceNumber: [id number]|1|0|1) diazepam 10 mg tablet RxNorm: 537659 TAKE 1 TABLET BY MOUTH THREE TIMES DAILY NEEDED 05/29/2014 06/27/2014 Inactive (Response to an electronic controlled substance refill request - RxReferenceNumber: [id number]|1|0|1) diazepam 10 mg tablet RxNorm: 876393 Tablet(s) PO TAKE 1 TABLET BY MOUTH THREE TIMES DAILY NEEDED 05/29/20142013 Inactive (Appended: Controlled substance eRx refill - RxReferenceNumber: [id number]|1|0|1) hydrocodone 10 mg-acetaminophen 325 mg tablet RxNorm: 234653 Tablet(s) TAKE 1-2 TABLETS BY MOUTH EVERY 6 HOURS NEEDED FOR PAIN 05/17/2014 06/13/2014 Inactive ( Response to an electronic controlled substance refill request - RxReferenceNumber: [id number]|1|0|1) diazepam 10 mg tablet RxNorm: 157885 Tablet(s) PO TAKE 1 TABLET BY MOUTH THREE TIMES DAILY NEEDED 04/27/20142013 Inactive (Appended: Controlled substance eRx refill - RxReferenceNumber: [id number]|1|0|1) Anucort-HC 25 mg suppository RxNorm: 7357583 1 SUPPOSITORY RTL QDAY PRN NEEDED 04/03/2014 06/01/2014 Inactive metoprolol tartrate 25 mg tablet RxNorm: 783761 1/2 TABLET(S) PO BID TAKE 1/2 TABLET BY MOUTH TWICE DAILY 04/03/201408/2014 Inactive Anucort-HC 25 mg suppository RxNorm: 5093081 1 SUPPOSITORY RTL QDAY PRN NEEDED 04/03/2014 06/01/2014 Inactive Seroquel 100 mg tablet RxNorm: 287306 1 TABLET(S) PO BID 201312/28/2014 Inactive TAKE 1 TABLET BY MOUTH TWICE DAILY Anucort-HC 25 mg suppository RxNorm: 1620285 1 SUPPOSITORY RTL QDAY PRN NEEDED 04/03/2014 06/01/2014 Inactive hydrocodone 10 mg-acetaminophen 325 mg tablet RxNorm: 501305 Tablet(s) TAKE 1-2 TABLETS BY MOUTH EVERY 6 HOURS NEEDED FOR PAIN 03/22/2014 04/20/2014 Inactive ( Response to an electronic controlled substance refill request - RxReferenceNumber: [id number]|1|0|1) Claritin-D 12 Hour 5 mg-120 mg tablet,extended release RxNorm: 1828619 1 Tablet(s ) PO BID 03/22/2014 2014 Inactive diazepam 10 mg tablet RxNorm: 233317 TAKE 1 TABLET BY MOUTH THREE TIMES DAILY NEEDED 03/19/2014 04/16/2014 Inactive (Response to an electronic controlled substance refill request - RxReferenceNumber: [id number]|1|0|1) Lipitor 20 mg tablet RxNorm: 578210 1 TABLET(S) PO DAILY 201312/05/2014 Inactive TAKE ONE TABLET BY MOUTH EVERY NIGHT AT BEDTIME Effexor XR 150 mg capsule,extended release RxNorm: 229987 1 CAPSULE(S) PO BID 03/01/2014 01/24/2015 Inactive TAKE 1 CAPSULE BY MOUTH TWICE DAILY Claritin-D 12 Hour 5 mg-120 mg tablet,extended release RxNorm: 5602550 1 Tablet(s ) PO BID 02/19/2014 03/21/2014 Inactive cyanocobalamin (vit B-12) 1,000 mcg/mL injection solution RxNorm: 628135 Milliliter(s) Inj 02/15/2014 02/15/2014 Inactive hydrocodone 10 mg-acetaminophen 325 mg tablet RxNorm: 229173 1 Tablet(s) PO Q6 PRN TAKE ONE TO TWO TABLETS BY MOUTH EVERY 6 HOURS NEEDED FOR PAIN 01/30/2014 01/30/2014 Inactive (Response to an electronic controlled substance refill request - RxReferenceNumber: [id number]|1|0|1) hydrocodone 10 mg-acetaminophen 325 mg tablet RxNorm: 872845 TAKE 1-2 TABLETS BY MOUTH EVERY 6 HOURS NEEDED FOR PAIN 01/30/2014 02/19/2014 Inactive (Response to an electronic controlled substance refill request - RxReferenceNumber: [id number]| [id number]|1|0|1) cyanocobalamin (vit B-12) 1,000 mcg/mL injection kit RxNorm: 571193 1 Milliliter(s ) Inj 01/15/2014 01/15/2014 Inactive Kenalog 40 mg/mL suspension for injection RxNorm: 5140055 1 Milliliter(s) Inj 01/15/2014 01/15/2014 Inactive Anucort-HC 25 mg suppository RxNorm: 8333416 1 Suppository RTL QDAY PRN as needed 01/15/2014 02/13/2014 Inactive hydrocodone 10 mg-acetaminophen 325 mg tablet RxNorm: 248968 TAKE ONE TO TWO TABLETS BY MOUTH EVERY 6 HOURS NEEDED FOR PAIN 12/29/2013 01/18/2014 Inactive ( Response to an electronic controlled substance refill request - RxReferenceNumber: [id number]|1|0|1) trazodone 100 mg tablet RxNorm: 686863 TAKE 2 TABLETS BY MOUTH EVERY NIGHT AT BEDTIME 12/20/2013 12/14/2014 Inactive mupirocin 2 % topical ointment RxNorm: 147132 1 APPLICATION TOP PRN 12/14/2013 01/09/2015 Inactive cyanocobalamin (vit B-12) 1,000 mcg/mL injection solution RxNorm: 324282 1 Milliliter(s) Inj 12/04/2013 12/04/2013 Inactive Savella 100 mg tablet RxNorm: 338411 1 Tablet(s) PO daily TAKE 1 TABLET BY MOUTH DAILY 11/28/2013 11/05/2016 Inactive Savella 100 mg tablet RxNorm: 052573 Tablet(s) PO TAKE 1 TABLET BY MOUTH DAILY 10/27/2013 11/27/2013 Inactive mupirocin 2 % topical ointment RxNorm: 239673 1 Application TOP PRN 10/17/2013 No Stop Date Active trazodone 100 mg tablet RxNorm: 729765 Tablet(s) PO TAKE 2 TABLETS BY MOUTH EVERY NIGHT AT BEDTIME 09/26/2013 11/05/2016 Inactive cyclobenzaprine 10 mg tablet RxNorm: 717015 Tablet(s) PO TAKE ONE TABLET BY MOUTH THREE TIMES DAILY 09/26/2013 01/07/2015 Inactive diazepam 10 mg tablet RxNorm: 680774 Tablet(s) PO TAKE 1 TABLET BY MOUTH THREE TIMES DAILY NEEDED 08/15/20132013 Inactive (Appended: Controlled substance eRx refill - RxReferenceNumber: [id number]|1|0|1) diazepam 10 mg tablet RxNorm: 447320 1 Tablet(s) PO TID PRN TAKE 1 TABLET BY MOUTH THREE TIMES DAILY NEEDED 08/15/2013 Inactive (Appended: Controlled substance eRx refill - RxReferenceNumber: [id number]|1|0|1) Vitamin B-12 1,000 mcg/mL injection solution RxNorm: 806926 Milliliter(s) Inj 07/24/2013 07/24/2013 Inactive pantoprazole 40 mg tablet,delayed release RxNorm: 520168 Tablet(s) PO TAKE 1 TABLET BY MOUTH EVERY DAY 07/20/201308/08 Inactive hydrocodone 10 mg-acetaminophen 325 mg tablet RxNorm: 685556 1 or 2 Tablet(s) PO Q6 PRN limit 6 per day 06/26/20132013 Inactive (Appended: Controlled substance eRx refill - RxReferenceNumber: [id number]|1|0|1) trazodone 100 mg tablet RxNorm: 465659 Tablet(s) PO TAKE 2 TABLETS BY MOUTH EVERY NIGHT AT BEDTIME 06/26/2013 11/05/2016 Inactive pantoprazole 40 mg tablet,delayed release RxNorm: 446342 Tablet(s) PO TAKE 1 TABLET BY MOUTH EVERY DAY 06/20/201306/05 Inactive prednisone 10 mg tablets in a dose pack RxNorm: 348110 Tablet(s) PO 6-5-4-3-2-1 06/13/2013 06/12/2013 Inactive prednisone 10 mg tablets in a dose pack RxNorm: 496724 Tablet(s) PO UD 6-5-4-3-2- 1 06/13/2013 06/18/2013 Inactive Silvadene 1 % topical cream RxNorm: 626417 1 TOP daily apply thin layer to left knee daily 06/12/2013 06/18/2013 Inactive metoprolol tartrate 25 mg tablet RxNorm: 848496 1/2 Tablet(s) PO BID TAKE 1/2 TABLET BY MOUTH TWICE DAILY 05/19/2013 Inactive Lipitor 20 mg tablet RxNorm: 106806 1 Tablet(s) PO daily 201203/11/2014 Inactive TAKE ONE TABLET BY MOUTH EVERY NIGHT AT BEDTIME Vitamin B-12 1,000 mcg/mL injection solution RxNorm: 213385 1 Milliliter(s) Inj 05/10/2013 05/10/2013 Inactive hydrocodone 10 mg-acetaminophen 325 mg tablet RxNorm: 919628 1 or 2 Tablet(s) PO Q6 PRN limit 6 per day 03/16/2013 No Stop Date Active (Appended: Controlled substance eRx refill - RxReferenceNumber: [id number]|1|0|1) Seroquel 100 mg tablet RxNorm: 414429 1 Tablet(s) PO BID 201203/10/2014 Inactive TAKE 1 TABLET BY MOUTH TWICE DAILY Effexor XR 150 mg capsule,extended release RxNorm: 556672 1 Capsule(s) PO BID 03/16/2013 02/28/2014 Inactive TAKE 1 CAPSULE BY MOUTH TWICE DAILY fluconazole 150 mg tablet RxNorm: 725113 1 Tablet(s) PO daily 03/06/2013 03/12/2013 Inactive Kenalog 40 mg/mL Susp for Injection RxNorm: 8392943 Milliliter(s) Inj 03/06/2013 03/06/2013 Inactive Ventolin HFA 90 mcg/actuation Aerosol Inhaler RxNorm: 6774848 1 or 2 Puff(s) INH Q6 PRN 02/20/2013 03/16/2014 Inactive cyanocobalamin (vitamin B-12) 1,000 mcg/mL Injection RxNorm: 933979 Milliliter(s) Inj 02/20/2013 02/20/2013 Inactive Valium 10 mg tablet RxNorm: 512136 1 Tablet(s) PO Q8 PRN 01/3102/24/2014 Inactive Kenalog 40 mg/mL Susp for Injection RxNorm: 7375869 Milliliter(s) Inj 12/26/2012 12/26/2012 Inactive cyanocobalamin (vitamin B-12) 1,000 mcg/mL Injection RxNorm: 352724 Milliliter(s) Inj 12/21/2012 12/21/2012 Inactive hydrocodone 10 mg-acetaminophen 325 mg tablet RxNorm: 1712197 1 or 2 Tablet(s) PO Q6 PRN limit 6 per day 11/25/20122012 Inactive (Appended: Controlled substance eRx refill - RxReferenceNumber: [id number]|1|0|1) diazepam 10 mg tablet RxNorm: 617961 1 Tablet(s) PO TID PRN 08/15/2013 Inactive TAKE 1 TABLET BY MOUTH THREE TIMES DAILY NEEDED (Appended: Controlled substance eRx refill - RxReferenceNumber: [id number]|1|0|1) diazepam 10 mg tablet RxNorm: 588452 Tablet(s) PO TAKE 1 TABLET BY MOUTH THREE TIMES DAILY NEEDED 11/21/20122013 Inactive (Appended: Controlled substance eRx refill - RxReferenceNumber: [id number]|1|0|1) Vitamin B-12 1,000 mcg/mL Injection RxNorm: 140935 1 Milliliter(s) Inj 11/16/2012 11/16/2012 Inactive hydrocodone 10 mg-acetaminophen 325 mg tablet RxNorm: 8488117 1 or 2 Tablet(s) PO Q6 PRN limit 6 per day 10/24/20122012 Inactive (Appended: Controlled substance eRx refill - RxReferenceNumber: [id number]|1|0|1) hydrocodone 10 mg-acetaminophen 325 mg tablet RxNorm: 3577683 Tablet(s) PO limit 5x days 10/24/2012 10/23/2012 Inactive (Appended: Controlled substance eRx refill - RxReferenceNumber: [id number]|1|0|1) Savella 100 mg tablet RxNorm: 659265 Tablet(s) PO TAKE 1 TABLET BY MOUTH DAILY 10/14/2012 12/05/2014 Inactive Tubersol 5 tub. unit/0.1 mL Intradermal RxNorm: 069136 Milliliter(s) IDrm 09/26/2012 09/26/2012 Inactive hydrocodone 10 mg-acetaminophen 325 mg tablet RxNorm: 1078403 1 Tablet(s) PO Q4 PRN q 4 hr prn limit 5 per day 09/19/2012 No Stop Date Active (Appended: Controlled substance eRx refill - RxReferenceNumber: [id number]|1|0|1) hydrocodone 10 mg-acetaminophen 325 mg tablet RxNorm: 2074856 Tablet(s) PO TAKE 1 TABLET BY MOUTH FOUR TIMES DAILY 09/16/2012 10/23/2012 Inactive (Appended: Controlled substance eRx refill - RxReferenceNumber: [id number]|1|0|1) cyclobenzaprine 10 mg tablet RxNorm: 557304 Tablet(s) PO TAKE ONE TABLET BY MOUTH THREE TIMES DAILY 09/16/2012 09/25/2013 Inactive hydrocodone 10 mg-acetaminophen 325 mg tablet RxNorm: 0865344 1 Tablet(s) PO Q4 PRN q 4 hr prn limit 5 per day 09/14/2012 09/19/2012 Inactive (Appended: Controlled substance eRx refill - RxReferenceNumber: [id number]|1|0|1) cyanocobalamin (vitamin B-12) 1,000 mcg/mL Injection RxNorm: 385515 1 Milliliter(s ) Inj 09/12/2012 09/12/2012 Inactive cyclobenzaprine 10 mg tablet RxNorm: 227782 Tablet(s) PO TAKE ONE TABLET BY MOUTH THREE TIMES DAILY 09/02/2012 09/15/2012 Inactive hydrocodone 10 mg-acetaminophen 325 mg tablet RxNorm: 3420747 1 Tablet(s) PO QID TAKE 1 TABLET BY MOUTH FOUR TIMES DAILY 08/23/2012 09/13/2012 Inactive (Appended: Controlled substance eRx refill - RxReferenceNumber: [id number]|1|0|1) Kenalog 40 mg/mL Susp for Injection RxNorm: 7649313 1 Milliliter(s) Inj 08/11/2012 08/11/2012 Inactive Vitamin B-12 1,000 mcg/mL Injection RxNorm: 099110 1 Milliliter(s) Inj 08/11/2012 08/11/2012 Inactive Zithromax 250 mg tablet RxNorm: 727135 Tablet(s) PO 07/21/2012 09/14/2012 Inactive please give z lauro cefdinir 300 mg capsule RxNorm: 615438 1 Capsule(s) PO BID 07/20/2012 Inactive cefdinir 300 mg capsule RxNorm: 524618 1 Capsule(s) PO BID 07/27/2012 Inactive diazepam 10 mg tablet RxNorm: 158819 1 Tablet(s) PO TID PRN 12/201211/22/2012 Inactive TAKE 1 TABLET BY MOUTH THREE TIMES DAILY NEEDED (Appended: Controlled substance eRx refill - RxReferenceNumber: [id number]|1|0|1) Vitamin B-12 1,000 mcg/mL Injection RxNorm: 356642 1 Milliliter(s) Inj 07/13/2012 07/13/2012 Inactive pantoprazole 40 mg tablet,delayed release RxNorm: 143577 1 Tablet(s) PO daily 06/14/2012 06/13/2012 Inactive pantoprazole 40 mg tablet,delayed release RxNorm: 521368 1 Tablet(s) PO daily 06/14/2012 06/19/2013 Inactive trazodone 100 mg tablet RxNorm: 368811 Tablet(s) PO TAKE 2 TABLETS BY MOUTH EVERY NIGHT AT BEDTIME 06/06/2012 11/05/2016 Inactive hydrocodone 10 mg-acetaminophen 325 mg tablet RxNorm: 3728108 Tablet(s) PO TAKE 1 TABLET BY MOUTH FOUR TIMES DAILY 05/24/2012 08/23/2012 Inactive (Appended: Controlled substance eRx refill - RxReferenceNumber: [id number]|1|0|1) Symbicort 160 mcg-4.5 mcg/actuation HFA Aerosol Inhaler RxNorm: 0315781 1 INH daily 05/24/2012 05/23/2012 Inactive this is an increase in dosing Symbicort 160 mcg-4.5 mcg/actuation HFA Aerosol Inhaler RxNorm: 1872894 1 INH daily 05/24/2012 06/17/2013 Inactive this is an increase in dosing Ventolin HFA 90 mcg/actuation Aerosol Inhaler RxNorm: 094176 1 or 2 Puff(s) INH Q6 PRN 05/24/2012 05/23/2012 Inactive Ventolin HFA 90 mcg/actuation Aerosol Inhaler RxNorm: 139236 1 or 2 Puff(s) INH Q6 PRN 05/24/2012 02/19/2013 Inactive metoprolol tartrate 25 mg tablet RxNorm: 157467 Tablet(s) PO TAKE 1/2 TABLET BY MOUTH TWICE DAILY 05/24/2012 05/18/2013 Inactive hydrocodone-acetaminophen 10 mg-325 mg tablet RxNorm: 0047376 Tablet(s) PO TAKE 1 TABLET BY MOUTH FOUR TIMES DAILY 05/17/2012 05/17/2012 Inactive (Appended: Controlled substance eRx refill - RxReferenceNumber: [id number]|1|0|1) diazepam 10 mg tablet RxNorm: 237952 Tablet(s) PO 05/03/2012 07/13/2012 Inactive TAKE 1 TABLET BY MOUTH THREE TIMES DAILY NEEDED (Appended: Controlled substance eRx refill - RxReferenceNumber: [id number]|1|0|1) metoprolol tartrate 25 mg tablet RxNorm: 919201 Tablet(s) PO 11/05/2016 Inactive TAKE 1/2 TABLET BY MOUTH TWICE DAILY hydrocodone-acetaminophen 10 mg-325 mg tablet RxNorm: 0471771 Tablet(s) PO 04/11/2012 05/17/2012 Inactive TAKE 1 TABLET BY MOUTH FOUR TIMES DAILY (Appended: Controlled substance eRx refill - RxReferenceNumber: [id number]|1|0|1) ProAir HFA 90 mcg/actuation Aerosol Inhaler RxNorm: 148183 2 INH Q4 PRN 04/05/2012 04/29/2013 Inactive Symbicort 80 mcg-4.5 mcg/actuation HFA Aerosol Inhaler RxNorm: 4704121 2 INH BID 04/05/2012 04/04/2012 Inactive Symbicort 80 mcg-4.5 mcg/actuation HFA Aerosol Inhaler RxNorm: 7910753 2 INH BID 04/05/2012 05/23/2012 Inactive ProAir HFA 90 mcg/actuation Aerosol Inhaler RxNorm: 353287 2 INH Q4 PRN 04/05/2012 04/04/2012 Inactive diazepam 10 mg tablet RxNorm: 338259 Tablet(s) PO 03/17/2012 05/03/2012 Inactive TAKE 1 TABLET BY MOUTH THREE TIMES DAILY NEEDED (Appended: Controlled substance eRx refill - RxReferenceNumber: [id number]|1|0|1) Effexor XR 150 mg capsule,extended release RxNorm: 114706 Capsule(s) PO 03/13/2012 03/15/2013 Inactive TAKE 1 CAPSULE BY MOUTH TWICE DAILY fluconazole 150 mg tablet RxNorm: 762697 1 Tablet(s) PO daily 03/11/2012 03/17/2012 Inactive Lipitor 20 mg tablet RxNorm: 220756 Tablet(s) PO 02/25/2012 03/20/2013 Inactive TAKE ONE TABLET BY MOUTH EVERY NIGHT AT BEDTIME Seroquel 100 mg tablet RxNorm: 670863 1 Tablet(s) PO BID 201102/18/2013 Inactive TAKE 1 TABLET BY MOUTH TWICE DAILY hydrocodone-acetaminophen 10 mg-325 mg tablet RxNorm: 9366564 Tablet(s) PO 02/25/2012 04/11/2012 Inactive TAKE 1 TABLET BY MOUTH FOUR TIMES DAILY . (Appended : Controlled substance eRx refill - RxReferenceNumber: [id number]|1|0|1) Seroquel 100 mg tablet RxNorm: 386466 1 Tablet(s) PO BID 201102/24/2012 Inactive TAKE 1 TABLET BY MOUTH TWICE DAILY Nexium 40 mg capsule,delayed release RxNorm: 122540 1 Capsule(s) PO daily 02/16/2012 06/13/2012 Inactive Effexor XR 150 mg capsule,extended release RxNorm: 426100 Capsule(s) PO 01/14/2012 11/05/2016 Inactive TAKE 1 CAPSULE BY MOUTH TWICE DAILY Kenalog 40 mg/mL Susp for Injection RxNorm: 0313571 1 Milliliter(s) Inj 01/13/2012 01/13/2012 Inactive Vitamin B-12 1,000 mcg/mL Injection RxNorm: 723941 Milliliter(s) Inj 12/21/2011 12/21/2011 Inactive hydrocodone-acetaminophen 10 mg-325 mg tablet RxNorm: 5831430 Tablet(s) PO 12/15/2011 02/25/2012 Inactive TAKE 1 TABLET BY MOUTH FOUR TIMES DAILY (Appended: Controlled substance eRx refill - RxReferenceNumber: [id number]|1|0|1) diazepam 10 mg tablet RxNorm: 709360 Tablet(s) PO 12/15/2011 03/17/2012 Inactive TAKE 1 TABLET BY MOUTH THREE TIMES DAILY NEEDED (Appended: Controlled substance eRx refill - RxReferenceNumber: [id number]|1|0|1) diazepam 10 mg Tab RxNorm: 090217 1 Tablet(s) PO daily 201112/15/2011 Inactive TAKE 1 TABLET BY MOUTH THREE TIMES DAILY (Appended: Controlled substance eRx refill - RxReferenceNumber: [id number]|1|0|1) hydrocodone-acetaminophen 10 mg-325 mg Tab RxNorm: 2038947 1 Tablet(s) PO QID 12/14/2011 12/15/2011 Inactive TAKE 1 TABLET BY MOUTH FOUR TIMES DAILY (Appended: Controlled substance eRx refill - RxReferenceNumber: [id number]|1|0|1) Seroquel 100 mg tablet RxNorm: 941450 Tablet(s) PO 11/27/2011 03/15/2013 Inactive TAKE 1 TABLET BY MOUTH TWICE DAILY hydrocodone-acetaminophen 10 mg-325 mg Tab RxNorm: 9096552 1 Tablet(s) PO QID 11/27/2011 12/13/2011 Inactive TAKE 1 TABLET BY MOUTH FOUR TIMES DAILY (Appended: Controlled substance eRx refill - RxReferenceNumber: [id number]|1|0|1) Seroquel 100 mg Tab RxNorm: 393491 1 Tablet(s) PO BID 201111/26/2011 Inactive Seroquel 100 mg tablet RxNorm: 651786 Tablet(s) PO 11/27/2011 02/16/2012 Inactive TAKE 1 TABLET BY MOUTH TWICE DAILY Nexium 40 mg capsule,delayed release RxNorm: 786209 1 Capsule(s) PO daily 11/16/2011 02/15/2012 Inactive cyanocobalamin (vitamin B-12) 1,000 mcg/mL Injection RxNorm: 551743 1 Milliliter(s ) Inj 10/30/2011 10/30/2011 Inactive hydrocodone-acetaminophen 10 mg-325 mg Tab RxNorm: 6561527 1 Tablet(s) PO QID 10/13/2011 11/23/2011 Inactive TAKE 1 TABLET BY MOUTH FOUR TIMES DAILY (Appended: Controlled substance eRx refill - RxReferenceNumber: [id number]|1|0|1) Effexor XR 150 mg capsule,extended release RxNorm: 939691 1 Capsule(s) PO BID 10/12/2011 01/09/2012 Inactive Fish Oil 1,000 mg Cap RxNorm: 1 Capsule(s) PO QID 10/02/2011 No Stop Date Active Vitamin B-12 1,000 mcg/mL Injection RxNorm: 282351 Milliliter(s) Inj 10/02/2011 10/02/2011 Inactive Kenalog 40 mg/mL Susp for Injection RxNorm: 0884800 Milliliter(s) Inj 10/02/2011 10/02/2011 Inactive diazepam 10 mg Tab RxNorm: 195009 1 Tablet(s) PO daily 201112/13/2011 Inactive TAKE 1 TABLET BY MOUTH THREE TIMES DAILY (Appended: Controlled substance eRx refill - RxReferenceNumber: [id number]|1|0|1) Vitamin B-12 1,000 mcg/mL Injection RxNorm: 229129 Milliliter(s) Inj 09/01/2011 09/01/2011 Inactive hydrocodone-acetaminophen 10 mg-325 mg Tab RxNorm: 1150228 1 Tablet(s) PO QID 08/25/2011 10/05/2011 Inactive TAKE 1 TABLET BY MOUTH FOUR TIMES DAILY (Appended: Controlled substance eRx refill - RxReferenceNumber: [id number]|1|0|1) diazepam 10 mg Tab RxNorm: 385051 Tablet(s) PO 08/10/2011 No Stop Date Active TAKE 1 TABLET BY MOUTH THREE TIMES DAILY (Appended: Controlled substance eRx refill - RxReferenceNumber: [id number]|1|0|1) Vitamin B-12 1,000 mcg/mL Injection RxNorm: 881130 Milliliter(s) Inj 08/03/2011 08/03/2011 Inactive fluticasone 50 mcg/actuation Nasal [place], Susp RxNorm: 1259220 2 [place] NASAL BID 07/27/2011 08/19/2012 Inactive hydrocodone-acetaminophen 10 mg-325 mg Tab RxNorm: 1583946 Tablet(s) PO 07/09/2011 08/24/2011 Inactive TAKE 1 TABLET BY MOUTH FOUR TIMES DAILY (Appended: Controlled substance eRx refill - RxReferenceNumber: [id number]|1|0|1) diazepam 10 mg Tab RxNorm: 176083 Tablet(s) PO 07/09/2011 08/09/2011 Inactive TAKE 1 TABLET BY MOUTH THREE TIMES DAILY (Appended: Controlled substance eRx refill - RxReferenceNumber: [id number]|1|0|1) diazepam 10 mg Tab RxNorm: 217301 Tablet(s) PO 07/08/2011 07/08/2011 Inactive TAKE 1 TABLET BY MOUTH THREE TIMES DAILY (Appended: Controlled substance eRx refill - RxReferenceNumber: [id number]|1|0|1) hydrocodone-acetaminophen 10 mg-325 mg Tab RxNorm: 5294476 Tablet(s) PO 07/08/2011 07/08/2011 Inactive TAKE 1 TABLET BY MOUTH FOUR TIMES DAILY (Appended: Controlled substance eRx refill - RxReferenceNumber: [id number]|1|0|1) cyclobenzaprine 10 mg tablet RxNorm: 317864 Tablet(s) PO 201109/01/2012 Inactive TAKE ONE TABLET BY MOUTH THREE TIMES DAILY Lipitor 40 mg Tab RxNorm: 009980 1 Tablet(s) PO daily 201106/16/2011 Inactive Lipitor 40 mg Tab RxNorm: 873365 1 Tablet(s) PO daily 201106/10/2012 Inactive trazodone 100 mg tablet RxNorm: 052307 Tablet(s) PO 06/02/2011 06/05/2012 Inactive TAKE 2 TABLETS BY MOUTH EVERY NIGHT AT BEDTIME diazepam 10 mg Tab RxNorm: 273952 Tablet(s) PO 05/28/2011 05/29/2011 Inactive TAKE 1 TABLET BY MOUTH THREE TIMES DAILY (Appended: Controlled substance eRx refill - RxReferenceNumber: [id number]|1|0|1) diazepam 10 mg Tab RxNorm: 174803 Tablet(s) PO 05/28/2011 07/08/2011 Inactive TAKE 1 TABLET BY MOUTH THREE TIMES DAILY (Appended: Controlled substance eRx refill - RxReferenceNumber: [id number]|1|0|1) hydrocodone-acetaminophen 10 mg-325 mg Tab RxNorm: 0237872 1 Tablet(s) PO QID 05/26/2011 07/08/2011 Inactive metoprolol tartrate 25 mg tablet RxNorm: 998370 Tablet(s) PO 04/10/2012 Inactive TAKE 1/2 TABLET BY MOUTH TWICE DAILY Savella 100 mg tablet RxNorm: 878684 Tablet(s) PO 05/14/2011 10/13/2012 Inactive TAKE 1 TABLET BY MOUTH DAILY Influenza Virus Vaccine 0.5 mL RxNorm: IM 02/23/2011 02/23/2011 Inactive B12 1000 mcg RxNorm: IM 02/23/20112010 Inactive hydrocodone-acetaminophen 10 mg-325 mg Tab RxNorm: 1168404 1 Tablet(s) PO QID 01/29/2011 01/28/2011 Inactive Restasis 0.05 % eye drops in a dropperette RxNorm: 387187 1 OPH BID No Start Date Active vitamin A-vit C-vit E-zinc-Se Tab RxNorm: 1 Tablet(s) PO daily No Start Date Active garlic extract Oral RxNorm: Oral No Start Date Active Acidophilus Tab RxNorm : 2 Tablet(s) PO QHS No Start Date Active Cranberry Concentrate Cap RxNorm: 1 Capsule(s) PO BID No Start Date Active Xopenex 1.25 mg/3 mL Neb Solution RxNorm: 590264 1 Milliliter(s) INH TID No Start Date Active niacin ER 500 mg Tab RxNorm: 076430 2 Tablet(s) PO HS No Start Date Active SenokotXTRA 17.2 mg Tab RxNorm: 6741018 Oral No Start Date Active Lotemax 0.5 % eye ointment RxNorm: 3940412 1 OPH QHS No Start Date Active Gaviscon Extra Strength Oral RxNorm: Oral No Start Date Active melatonin 3 mg Tab RxNorm: 859143 1 Tablet(s) PO QHS No Start Date Active Voltaren 1 % Topical Gel RxNorm: 018564 4 Gram(s) TOP QID No Start Date Active Vitamin D 1,000 unit Cap RxNorm: 895371 1 Capsule(s) PO QHS No Start Date Active Mucinex DM 30 mg-600 mg 12 hr Tab RxNorm: 8103318 1 Tablet(s) PO BID No Start Date Active calcium citrate 200 mg (950 mg) Tab RxNorm: 792539 1 Tablet(s) PO QID No Start Date Active valerian 530 mg Cap RxNorm: 2 Capsule(s) PO QHS No Start Date Active Anucort-HC 25 mg Suppository RxNorm: 1923054 1 Suppository RTL QDAY PRN No Start Date 01/14/2014 Inactive Nexium 40 mg Capsule, delayed release RxNorm: 832940 1 Capsule(s) PO daily No Start Date 11/15/2011 Inactive Lipitor 20 mg tablet RxNorm: 086824 1 Tablet(s) PO QHS No Start Date 02/25/2012 Inactive mupirocin 2 % topical ointment RxNorm: 032012 1 Application TOP PRN No Start Date 10/16/2013 Inactive fluconazole 150 mg tablet RxNorm: 446180 1 Tablet(s) PO daily No Start Date 03/10/2012 Inactive Fish Oil 1,000 mg Cap RxNorm: 1 Capsule(s) PO TID No Start Date 10/01/2011 Inactive hydrocodone-acetaminophen 10 mg-325 mg Tab RxNorm: 8483742 1 Tablet(s) PO QID No Start Date 05/25/2011 Inactive Zithromax 250 mg tablet RxNorm: 743205 Tablet(s) PO No Start Date 07/20/2012 Inactive please give z lauro prednisone 10 mg tablet RxNorm: 927946 Tablet(s) PO taper. 6-5-4-3-2-1 # 21 No Start Date 09/16/2017 Inactive fluticasone 50 mcg/actuation Nasal [place], Susp RxNorm: 1199450 2 [place] NASAL BID No Start Date 07/26/2011 Inactive Seroquel 100 mg Tab RxNorm: 866960 1 Tablet(s) PO BID No Start Date 11/26/2011 Inactive nystatin 100,000 unit/gram topical powder RxNorm: 915332 1 Application TOP QID until healed No Start Date 10/26/2016 Inactive Savella 100 mg Tab RxNorm: 349478 1 Tablet(s) PO daily No Start Date 05/13/2011 Inactive cyclobenzaprine 10 mg Tab RxNorm: 672698 1 Tablet(s) PO TID No Start Date 07/05/2011 Inactive metoprolol tartrate 25 mg Tab RxNorm: 424054 1/2 Tablet(s) PO BID No Start Date 05/25/2011 Inactive trazodone 100 mg Tab RxNorm: 875722 2 Tablet(s) PO QHS No Start Date 06/01/2011 Inactive Zithromax Z-Lauro 250 mg tablet RxNorm: 808661 1 Tablet(s) PO UD No Start Date 07/11/2015 Inactive z lauro Effexor XR 150 mg 24 hr Cap RxNorm: 660478 1 Capsule(s) PO BID No Start Date 10/11/2011 Inactive diazepam 10 mg Tab RxNorm: 958089 1 Tablet(s) PO TID No Start Date 05/28/2011 Inactive tramadol 50 mg tablet RxNorm: 224683 1-2 Tablet(s) PO Q6 as needed No Start Date 05/28/2015 Inactive Medication Administered Medication Codes Instructions Start Date Status cyanocobalamin (vit B-12) 1,000 mcg/mL injection solution RxNorm: 018710 1Milliliter 03/10/2018 No longer Active cyanocobalamin (vit B-12) 1,000 mcg/mL injection solution RxNorm: 155444 1Milliliter 10/19/2017 No longer Active cyanocobalamin (vit B-12) 1,000 mcg/mL injection solution RxNorm: 872750 1Milliliter 08/19/2017 No longer Active cyanocobalamin (vit B-12) 1,000 mcg/mL injection solution RxNorm: 787512 1Milliliter 07/06/2017 No longer Active cyanocobalamin (vit B-12) 1,000 mcg/mL injection solution RxNorm: 765352 1Milliliter 04/27/2017 No longer Active cyanocobalamin (vit B-12) 1,000 mcg/mL injection solution RxNorm: 385413 1Milliliter 11/17/2016 No longer Active cyanocobalamin (vit B-12) 1,000 mcg/mL injection solution RxNorm: 913618 1Milliliter 10/12/2016 No longer Active cyanocobalamin (vit B-12) 1,000 mcg/mL injection solution RxNorm: 450177 1Milliliter 09/11/2016 No longer Active cyanocobalamin (vit B-12) 1,000 mcg/mL injection solution RxNorm: 878081 Milliliter 07/03/2016 No longer Active cyanocobalamin (vit B-12) 1,000 mcg/mL injection solution RxNorm: 987646 1Milliliter 04/20/2016 No longer Active cyanocobalamin (vit B-12) 1,000 mcg/mL injection solution RxNorm: 159922 Milliliter 02/13/2016 No longer Active cyanocobalamin (vit B-12) 1,000 mcg/mL injection solution RxNorm: 597670 1Milliliter 12/02/2015 No longer Active cyanocobalamin (vit B-12) 1,000 mcg/mL injection solution RxNorm: 861182 1Milliliter 10/29/2015 No longer Active cyanocobalamin (vit B-12) 1,000 mcg/mL injection solution RxNorm: 367239 Milliliter 06/10/2015 No longer Active cyanocobalamin (vit B-12) 1,000 mcg/mL injection solution RxNorm: 373130 Milliliter 02/15/2014 No longer Active cyanocobalamin (vit B-12) 1,000 mcg/mL injection kit RxNorm : 316443 1Milliliter 01/15/2014 No longer Active Kenalog 40 mg/mL suspension for injection RxNorm: 5306115 1Milliliter 01/15/2014 No longer Active cyanocobalamin (vit B-12) 1,000 mcg/mL injection solution RxNorm: 262464 1Milliliter 12/04/2013 No longer Active Vitamin B-12 1,000 mcg/mL injection solution RxNorm: 353732 Milliliter 07/24/2013 No longer Active Vitamin B-12 1,000 mcg/mL injection solution RxNorm: 496926 1Milliliter 05/10/2013 No longer Active Kenalog 40 mg/mL Susp for Injection RxNorm: 2755016 Milliliter 03/06/2013 No longer Active cyanocobalamin (vitamin B-12) 1,000 mcg/mL Injection RxNorm : 098141 Milliliter 02/20/2013 No longer Active Kenalog 40 mg/mL Susp for Injection RxNorm: 2088452 Milliliter 12/26/2012 No longer Active cyanocobalamin (vitamin B-12) 1,000 mcg/mL Injection RxNorm : 146327 Milliliter 12/21/2012 No longer Active Vitamin B-12 1,000 mcg/mL Injection RxNorm: 750428 1Milliliter 11/16/2012 No longer Active Tubersol 5 tub. unit/0.1 mL Intradermal RxNorm: 305502 Milliliter 09/26/2012 No longer Active cyanocobalamin (vitamin B-12) 1,000 mcg/mL Injection RxNorm : 425561 1Milliliter 09/12/2012 No longer Active Kenalog 40 mg/mL Susp for Injection RxNorm: 5176252 1Milliliter 08/11/2012 No longer Active Vitamin B-12 1,000 mcg/mL Injection RxNorm: 661523 1Milliliter 08/11/2012 No longer Active Vitamin B-12 1,000 mcg/mL Injection RxNorm: 008017 1Milliliter 07/13/2012 No longer Active Kenalog 40 mg/mL Susp for Injection RxNorm: 3364345 1Milliliter 01/13/2012 No longer Active Vitamin B-12 1,000 mcg/mL Injection RxNorm: 406690 Milliliter 12/21/2011 No longer Active cyanocobalamin (vitamin B-12) 1,000 mcg/mL Injection RxNorm : 118086 1Milliliter 10/30/2011 No longer Active Vitamin B-12 1,000 mcg/mL Injection RxNorm: 438730 Milliliter 10/02/2011 No longer Active Kenalog 40 mg/mL Susp for Injection RxNorm: 3488285 Milliliter 10/02/2011 No longer Active Vitamin B-12 1,000 mcg/mL Injection RxNorm: 679706 Milliliter 09/01/2011 No longer Active Vitamin B-12 1,000 mcg/mL Injection RxNorm: 722857 Milliliter 08/03/2011 No longer Active B12 1000 [...] 02/23/2011 completed Assessments Condition Codes Effective Dates Impaired fasting glucose ICD-10: R73.01 ICD-9: 790.21 [...] 2011 Weight gain ICD-9: 783.1 06/29/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 10/2010 Reason For Visit Reason [...] injuries from a fall (hurts after sitting "E[place]ian style" abdominal pain 02/12/2011 joint complaint 01/29/2011 Results Observation Observation Code Item Item Code Result Date %Hba1C Qzs545 % HbA1c 71234-3 5.8 % 07/08/2018 %Hba1C Ett648 Gluc Ave 120 mg/dL 07/08/2018 Vitamin D 25 Oh [id number] VITAMIN D, 25 HYDROXY 35.57 ng/mL Cbc [...] 32.2 pg 07/08/2018 Cbc With Differential Ord2 [place]% 9.5 % 07/08/2018 Cbc With Differential Ord2 MCHC 31.5 pg 07/08/2018 Cbc With Differential Ord2 Eos% 2.1 % 07/08/2018 Cbc With Differential Ord2 PLT 259 K/ul 07/08/2018 Cbc With Differential Ord2 Baso% 0.1 % 07/08/2018 Cbc With Differential Ord2 RDW 14.0 % 07/08/2018 Cbc With Differential Ord2 Neut ABS# 4.23 K/ul 07/08/2018 Cbc With Differential Ord2 Lymph ABS# 3.27 K/ul 07/08/2018 Cbc With Differential Ord2 [place] ABS# 0.8 K/ul 07/08/2018 Cbc With Differential Ord2 Eos ABS# 0.2 K/ul 07/08/2018 Cbc With Differential Ord2 Baso ABS# 0.0 K/ul 07/08/2018 Comp Metabolic Orj724 NA 140 mEq/L 07/08/2018 Comp Metabolic Ftb310 K 3.5 mEq/L 07/08/2018 Comp Metabolic Nox367 CL 105 mEq/L 07/08/2018 Comp Metabolic Lyk399 CO2 26.0 mEq/L 07/08/2018 Comp Metabolic Rbr255 ANION GAP 13 07/08/2018 Comp Metabolic Abv390 GLUCOSE 125 mg/dL 07/08/2018 Comp Metabolic Gek673 Creat 0.7 mg/dL 07/08/2018 Comp Metabolic Tmg502 eGFR 97 ml/min/1.73m2 07/08/2018 Comp Metabolic Eyc568 BUN 12 mg/dL 07/08/2018 Comp Metabolic Xcq576 B/C Ratio 17.6 Ratio 07/08/2018 Comp Metabolic Xwk462 CALCIUM 9.7 mg/dL 07/08/2018 Comp Metabolic Dhx307 ALK PHOS 55 U/L 07/08/2018 Comp Metabolic Etg120 AST(SGOT) 15 U/L 07/08/2018 Comp Metabolic Tph841 ALT(SGPT) 23 U/L 07/08/2018 Comp Metabolic Deu937 BILI T 0.4 mg/dL 07/08/2018 Comp Metabolic Pyb320 ALBUMIN 4.5 g/dL 07/08/2018 Comp Metabolic Pom047 TPRO 6.6 g/dL 07/08/2018 Comp Metabolic Bhj489 GLOB 2.1 g/dL 07/08/2018 Comp Metabolic Pxk907 A/G Ratio 2.2 Ratio 07/08/2018 Comp Metabolic Leu647 Osmo 281 mOsmo 07/08/2018 B12 Hwn748 B12 597.00 pg/ml 07/08/2018 Tsh Ord6 TSH (3rd IS) 1.59 uIU/mL 07/08/2018 Comp Metabolic Aqp871 NA 138 mEq/L 09/20/2017 Comp Metabolic Drw794 K 4.1 mEq/L 09/20/2017 Comp Metabolic Ldk892 CL 101 mEq/L 09/20/2017 Comp Metabolic Qpo598 CO2 25.0 mEq/L 09/20/2017 Comp Metabolic Ync445 ANION GAP 16 09/20/2017 Comp Metabolic Dhd176 GLUCOSE 105 mg/dL 09/20/2017 Comp Metabolic Skl727 Creat 0.8 mg/dL 09/20/2017 Comp Metabolic Enx815 eGFR 86 ml/min/1.73m2 09/20/2017 Comp Metabolic Zuj421 BUN 24 mg/dL 09/20/2017 Comp Metabolic Uzi645 B/C Ratio 31.6 Ratio 09/20/2017 Comp Metabolic Hna565 CALCIUM 10.0 mg/dL 09/20/2017 Comp Metabolic Wzc815 ALK PHOS 63 U/L 09/20/2017 Comp Metabolic Wdp668 AST(SGOT) 28 U/L 09/20/2017 Comp Metabolic Wuf879 ALT(SGPT) 34 U/L 09/20/2017 Comp Metabolic Ell715 BILI T 0.3 mg/dL 09/20/2017 Comp Metabolic Yzr429 ALBUMIN 4.8 g/dL 09/20/2017 Comp Metabolic Qse699 TPRO 7.2 g/dL 09/20/2017 Comp Metabolic Mva489 GLOB 2.4 g/dL 09/20/2017 Comp Metabolic Qgp082 A/G Ratio 2.0 Ratio 09/20/2017 Comp Metabolic Gvh208 Osmo 280 mOsmo 09/20/2017 Urine Culture Ucult Preliminary NO Growth Day 1 09/20/2017 Urine Culture Ucult Complete NO Growth Day 2 09/20/2017 Vitamin D 25 Oh Odi3811 VITAMIN D, 25 HYDROXY 46.43 ng/mL Comp Metabolic Ezz599 NA 143 mEq/L 08/25/2017 Comp Metabolic Hzl754 K 4.1 mEq/L 08/25/2017 Comp Metabolic Acs883 CL 102 mEq/L 08/25/2017 Comp Metabolic Iua208 CO2 33.0 mEq/L 08/25/2017 Comp Metabolic Pvg159 ANION GAP 12 08/25/2017 Comp Metabolic Glz749 GLUCOSE 99 mg/dL 08/25/2017 Comp Metabolic Bns762 Creat 0.8 mg/dL 08/25/2017 Comp Metabolic Skw159 eGFR 86 ml/min/1.73m2 08/25/2017 Comp Metabolic Dfq973 BUN 19 mg/dL 08/25/2017 Comp Metabolic Hog113 B/C Ratio 25.0 Ratio 08/25/2017 Comp Metabolic Akf937 CALCIUM 9.5 mg/dL 08/25/2017 Comp Metabolic Yot820 ALK PHOS 63 U/L 08/25/2017 Comp Metabolic Lpr990 AST(SGOT) 17 U/L 08/25/2017 Comp Metabolic Unj210 ALT(SGPT) 20 U/L 08/25/2017 Comp Metabolic Sjg753 BILI T 0.3 mg/dL 08/25/2017 Comp Metabolic Uix206 ALBUMIN 4.5 g/dL 08/25/2017 Comp Metabolic Mta158 TPRO 6.6 g/dL 08/25/2017 Comp Metabolic Fwu022 GLOB 2.1 g/dL 08/25/2017 Comp Metabolic Qpx063 A/G Ratio 2.1 Ratio 08/25/2017 Comp Metabolic Hgh434 Osmo 287 mOsmo 08/25/2017 B12 Fyc670 B12 904.00 pg/ml 08/25/2017 Tsh Ord6 TSH [...] 44.4 % 08/25/2017 Cbc With Differential Ord2 MCV 103.4 fl 08/25/2017 Cbc With Differential Ord2 Lymph% 46.7 % 08/25/2017 Cbc With Differential Ord2 MCH 32.3 pg 08/25/2017 Cbc With Differential Ord2 [place]% 7.5 % 08/25/2017 Cbc With Differential Ord2 MCHC 31.2 pg 08/25/2017 Cbc With Differential Ord2 Eos% 1.3 % 08/25/2017 Cbc With Differential Ord2 PLT 205 K/ul 08/25/2017 Cbc With Differential Ord2 Baso% 0.1 % 08/25/2017 Cbc With Differential Ord2 RDW 13.1 % 08/25/2017 Cbc With Differential Ord2 Neut ABS# 3.47 K/ul 08/25/2017 Cbc With Differential Ord2 Lymph ABS# 3.65 K/ul 08/25/2017 Cbc With Differential Ord2 [place] ABS# 0.6 K/ul 08/25/2017 Cbc With Differential Ord2 Eos ABS# 0.1 K/ul 08/25/2017 Cbc With Differential Ord2 Baso ABS# 0.0 K/ul 08/25/2017 Tsh Ord6 hTSH II 1.18 uIU/mL 10/12/2016 Comp Metabolic Cex362 NA 139 mEq/L 10/12/2016 Comp Metabolic Igu452 K 3.5 mEq/L 10/12/2016 Comp Metabolic Oss348 CL 102 mEq/L 10/12/2016 Comp Metabolic Scf642 CO2 25.0 mEq/L 10/12/2016 Comp Metabolic Oof687 ANION GAP 16 10/12/2016 Comp Metabolic Pnq113 GLUCOSE 84 mg/dL 10/12/2016 Comp Metabolic Aqb663 Creat 0.6 mg/dL 10/12/2016 Comp Metabolic Hrh747 eGFR 105 ml/min/1.73m2 10/12/2016 Comp Metabolic Bkg168 BUN 12 mg/dL 10/12/2016 Comp Metabolic Agm135 B/C Ratio 18.8 Ratio 10/12/2016 Comp Metabolic Ecs049 CALCIUM 9.2 mg/dL 10/12/2016 Comp Metabolic Vrp658 ALK PHOS 59 U/L 10/12/2016 Comp Metabolic Tby782 AST(SGOT) 21 U/L 10/12/2016 Comp Metabolic Oej577 ALT(SGPT) 27 U/L 10/12/2016 Comp Metabolic Okr895 BILI T 0.2 mg/dL 10/12/2016 Comp Metabolic Fkz090 ALBUMIN 4.4 g/dL 10/12/2016 Comp Metabolic Yxp654 TPRO 6.7 g/dL 10/12/2016 Comp Metabolic Dnp235 GLOB 2.3 g/dL 10/12/2016 Comp Metabolic Tra388 A/G Ratio 1.9 Ratio 10/12/2016 Comp Metabolic Jhj720 Osmo 276 mOsmo 10/12/2016 Cbc With Differential [...] 31.9 % 10/12/2016 Cbc With Differential Ord2 MCH 32.7 pg 10/12/2016 Cbc With Differential Ord2 [place]% 8.0 % 10/12/2016 Cbc With Differential Ord2 MCHC 31.7 pg 10/12/2016 Cbc With Differential Ord2 Eos% 1.0 % 10/12/2016 Cbc With Differential Ord2 PLT 238 K/ul 10/12/2016 Cbc With Differential Ord2 Baso% 0.2 % 10/12/2016 Cbc With Differential Ord2 RDW 13.2 % 10/12/2016 Cbc With Differential Ord2 Neut ABS# 5.75 K/ul 10/12/2016 Cbc With Differential Ord2 Lymph ABS# 3.12 K/ul 10/12/2016 Cbc With Differential Ord2 [place] ABS# 0.8 K/ul 10/12/2016 Cbc With Differential Ord2 Eos ABS# 0.1 K/ul 10/12/2016 Cbc With Differential Ord2 Baso ABS# 0.0 K/ul 10/12/2016 Lipid Ord30 CHOL 194 mg/dL 10/12/2016 Lipid Ord30 HDL 76.0 mg/dl 10/12/2016 Lipid Ord30 TRIG 159 mg/dL 10/12/2016 Lipid Ord30 LDL 86 mg/dL 10/12/2016 Lipid Ord30 C/HDL 2.6 Ratio 10/12/2016 Comp Metabolic Fph340 NA 139 mEq/L 09/11/2016 Comp Metabolic Xdm810 K 3.6 mEq/L 09/11/2016 Comp Metabolic Qml178 CL 102 mEq/L 09/11/2016 Comp Metabolic Jyf612 CO2 26.0 mEq/L 09/11/2016 Comp Metabolic Mwc372 ANION GAP 15 09/11/2016 Comp Metabolic Xms865 GLUCOSE 90 mg/dL 09/11/2016 Comp Metabolic Ntg221 Creat 0.6 mg/dL 09/11/2016 Comp Metabolic Hlh598 eGFR 111 ml/min/1.73m2 09/11/2016 Comp Metabolic Gmr360 BUN 14 mg/dL 09/11/2016 Comp Metabolic Aao785 B/C Ratio 23.0 Ratio 09/11/2016 Comp Metabolic Qmi399 CALCIUM 9.0 mg/dL 09/11/2016 Comp Metabolic Vtb522 ALK PHOS 56 U/L 09/11/2016 Comp Metabolic Ufu303 AST(SGOT) 21 U/L 09/11/2016 Comp Metabolic Alx289 ALT(SGPT) 17 U/L 09/11/2016 Comp Metabolic Fjr280 BILI T 0.2 mg/dL 09/11/2016 Comp Metabolic Jmi444 ALBUMIN 4.1 g/dL 09/11/2016 Comp Metabolic Lxk974 TPRO 6.5 g/dL 09/11/2016 Comp Metabolic Lrp234 GLOB 2.4 g/dL 09/11/2016 Comp Metabolic Ttz509 A/G Ratio 1.7 Ratio 09/11/2016 Comp Metabolic Vzp769 Osmo 278 mOsmo 09/11/2016 Tsh Ord6 hTSH II 1.73 uIU/mL 09/11/2016 Cbc With Differential Ord2 WBC 11.11 K/ul 09/11/2016 Cbc With Differential Ord2 RBC 3.51 M/ul 09/11/2016 Cbc With Differential Ord2 HGB 11.6 g/dl 09/11/2016 Cbc With Differential Ord2 HCT 36.3 % 09/11/2016 Cbc With Differential Ord2 Neut% 59.8 % 09/11/2016 Cbc With Differential Ord2 MCV 103.4 fl 09/11/2016 Cbc With Differential Ord2 Lymph% 30.2 % 09/11/2016 Cbc With Differential Ord2 MCH 33.0 pg 09/11/2016 Cbc With Differential Ord2 [place]% 8.6 % 09/11/2016 Cbc With Differential Ord2 [...] 3.35 K/ul 09/11/2016 Cbc With Differential Ord2 [place] ABS# 1.0 K/ul 09/11/2016 Cbc With Differential Ord2 Eos ABS# 0.1 K/ul 09/11/2016 Cbc With Differential Ord2 Baso ABS# 0.0 K/ul 09/11/2016 Lipid Ord30 CHOL 168 mg/dL 09/11/2016 Lipid Ord30 HDL 74.0 mg/dl 09/11/2016 Lipid Ord30 TRIG 167 mg/dL 09/11/2016 Lipid Ord30 LDL 61 mg/dL 09/11/2016 Lipid Ord30 C/HDL 2.3 Ratio 09/11/2016 B12 Xix140 B12 474.00 pg/ml 09/11/2016 B12 Gqa393 B12 827.00 pg/ml 03/02/2016 Cbc With Differential Ord2 WBC 5.51 K/ul 02/28/2016 Cbc With Differential Ord2 RBC 3.26 M/ul 02/28/2016 Cbc With Differential Ord2 HGB 11.1 g/dl 02/28/2016 Cbc With Differential Ord2 HCT 35.3 % 02/28/2016 Cbc With Differential Ord2 Neut% 54.9 % 02/28/2016 Cbc With Differential Ord2 MCV 108.3 fl 02/28/2016 Cbc With Differential Ord2 Lymph% 37.7 % 02/28/2016 Cbc With Differential Ord2 MCH 34.0 pg 02/28/2016 Cbc With Differential Ord2 [place]% 5.4 % 02/28/2016 Cbc With Differential Ord2 MCHC 31.4 pg 02/28/2016 Cbc With Differential Ord2 Eos% 1.8 % 02/28/2016 Cbc With Differential Ord2 PLT 198 K/ul 02/28/2016 Cbc With Differential Ord2 Baso% 0.2 % 02/28/2016 Cbc With Differential Ord2 RDW 12.7 % 02/28/2016 Cbc With Differential Ord2 Neut ABS# 3.02 K/ul 02/28/2016 Cbc With Differential Ord2 Lymph ABS# 2.08 K/ul 02/28/2016 Cbc With Differential Ord2 [place] ABS# 0.3 K/ul 02/28/2016 Cbc With Differential Ord2 Eos ABS# 0.1 K/ul 02/28/2016 Cbc With Differential Ord2 Baso ABS# 0.0 K/ul 02/28/2016 Sed Rate Ord21 ESR 5 mm/hr 02/28/2016 C-Reactive Protein Qnt Crqnt CRP 0.1 mg/dl 02/28/2016 Comp Metabolic Bza685 NA 136 mEq/L 02/28/2016 Comp Metabolic Win979 K 4.0 mEq/L 02/28/2016 Comp Metabolic Rvz596 CL 103 mEq/L 02/28/2016 Comp Metabolic Hwi265 CO2 27.0 mEq/L 02/28/2016 Comp Metabolic Uae430 ANION GAP 10 02/28/2016 Comp Metabolic Gpt581 GLUCOSE 138 mg/dL 02/28/2016 Comp Metabolic Ncf760 Creat 0.6 mg/dL 02/28/2016 Comp Metabolic Ieh348 eGFR 120 ml/min/1.73m2 02/28/2016 Comp Metabolic Avy662 BUN 15 mg/dL 02/28/2016 Comp Metabolic Wbu931 B/C Ratio 26.3 Ratio 02/28/2016 Comp Metabolic Wdj102 CALCIUM 8.8 mg/dL 02/28/2016 Comp Metabolic Cka210 ALK PHOS 58 U/L 02/28/2016 Comp Metabolic Bvo531 AST(SGOT) 21 U/L 02/28/2016 Comp Metabolic Hno539 ALT(SGPT) 21 U/L 02/28/2016 Comp Metabolic Pec096 BILI T 0.2 mg/dL 02/28/2016 Comp Metabolic Tdv664 ALBUMIN 3.8 g/dL 02/28/2016 Comp Metabolic Cdh429 TPRO 5.7 g/dL 02/28/2016 Comp Metabolic Lnm064 GLOB 1.9 g/dL 02/28/2016 Comp Metabolic Aie793 A/G Ratio 2.0 Ratio 02/28/2016 Comp Metabolic Kpz900 Osmo 275 mOsmo 02/28/2016 Tsh Ord6 hTSH II 1.25 uIU/mL 02/28/2016 B12 Ukq569 B12 >1500.00 pg/ml 01/11/2016 Vitamin D 25 Oh Dsi1264 VITAMIN D, 25 HYDROXY 45.94 ng/mL Comp Metabolic Irg755 NA 136 mEq/L 03/21/2015 Comp Metabolic Yna590 K 3.8 mEq/L 03/21/2015 Comp Metabolic Ahi057 CL 101 mEq/L 03/21/2015 Comp Metabolic Ltp052 CO2 31.0 mEq/L 03/21/2015 Comp Metabolic Lyr393 ANION GAP 8 03/21/2015 Comp Metabolic Pwq024 GLUCOSE 101 mg/dL 03/21/2015 Comp Metabolic Pge650 Creat 0.7 mg/dL 03/21/2015 Comp Metabolic Cha939 eGFR 94 ml/min/1.73m2 03/21/2015 Comp Metabolic Xxi717 BUN 13 mg/dL 03/21/2015 Comp Metabolic Lyn717 B/C Ratio 18.3 Ratio 03/21/2015 Comp Metabolic Skb657 CALCIUM 9.3 mg/dL 03/21/2015 Comp Metabolic Djy300 ALK PHOS 58 U/L 03/21/2015 Comp Metabolic Ytj239 AST(SGOT) 18 U/L 03/21/2015 Comp Metabolic Qce918 ALT(SGPT) 22 U/L 03/21/2015 Comp Metabolic Meb211 BILI T 0.3 mg/dL 03/21/2015 Comp Metabolic Vgn043 ALBUMIN 4.4 g/dL 03/21/2015 Comp Metabolic Evs119 TPRO 6.7 g/dL 03/21/2015 Comp Metabolic Unt577 GLOB 2.3 g/dL 03/21/2015 Comp Metabolic Znx771 A/G Ratio 1.9 Ratio 03/21/2015 Comp Metabolic Tyv399 Osmo 272 mOsmo 03/21/2015 %Hba1C Klm639 % HbA1c 90563-0 5.4 % 03/21/2015 %Hba1C Cps603 Gluc Ave 108 mg/dL 03/21/2015 Cbc With [...] 1.32 uIU/mL 03/21/2015 URINALYSIS NONAUTO W/O SCOPE 43176 Specific [place] 1.025 DateTime(Free Text in Aprima) URINALYSIS NONAUTO W/O SCOPE 71975 PH 5.0 DateTime(Free Text in Aprima) URINALYSIS NONAUTO W/O SCOPE 45331 GLUCOSE NEG DateTime( Free Text in Aprima) URINALYSIS NONAUTO W/O SCOPE 13362 Protein NEG DateTime( Free Text in Aprima) URINALYSIS NONAUTO W/O SCOPE 26538 Blood NEG DateTime(Free Text in Aprima) URINALYSIS NONAUTO W/O SCOPE 73593 Bilirubin NEG DateTime(Free Text in Aprima) URINALYSIS NONAUTO W/O SCOPE 45346 Ketones NEG DateTime( Free Text in Aprima) URINALYSIS NONAUTO W/O SCOPE 07873 Urobilinogen NEG DateTime(Free Text in Aprima) URINALYSIS NONAUTO W/O SCOPE 85480 Nitrite NEG DateTime( Free Text in Aprima) URINALYSIS NONAUTO W/O SCOPE 89180 Leukocytes NEG DateTime(Free Text in Aprima) Review [...] age 0106/16/2018 None Full Exam - General 1995 Constitutional general appearance Hygiene/Attention to Grooming: good hygiene 06/16/2018 None Full Exam - General 1995 Eyes conjunctiva /eyelids Overall: conjunctiva clear 06/16/2018 None Full Exam - General 1995 Eyes conjunctiva /eyelids Overall: cornea clear 06/16/2018 None Full Exam - General 1994 Eyes conjunctiva /eyelids Overall: eyelids normal 06/16/2018 None Full Exam - General 1994 Eyes pupils and irises Overall: pupils equal, round, reactive to light and accomodation 06/16/2018 None Full Exam - General 1995 Ears/Nose/Throat lips/teeth/gingiva Overall: benign lips 06/16/2018 None Full Exam - General 1995 Ears/Nose/Throat lips/teeth/gingiva Overall: normal dentition 06/16/2018 None [...] ideas 05/07/2016 None Full Exam - General 1995 Constitutional general appearance Development: appears older than [...] developed 07/13/2012 None Full Exam - General 1995 Constitutional general appearance Overall: in no acute distress 07/13/2012 None Full Exam - General 1995 Eyes conjunctiva /eyelids Overall: conjunctiva clear 07/13/2012 None Full Exam - General 1995 Respiratory [...] palpation 09/01/2011 None Full Exam - General 1995 Musculoskeletal upper extremity ROM - wrist: a [...] station 08/03/2011 None Full Exam - General 1995 Psychiatric orientation/consciousness Overall: oriented to person, place and time 08/03/2011 None Full Exam - General 1995 Psychiatric mood and affect Overall: normal mood and affect 08/03/2011 None Full Exam - General 1994 Musculoskeletal gait and station Overall: normal gait 08/03/2011 None Full Exam - General 1995 Abdomen abdominal exam Overall: no tenderness 06/29/2011 [...] Procedure Codes Date THER/PROPH/DIAG INJ SC/IM CPT-4: 72174 04/05/2018 VITAMIN B12 INJECTION CPT-4: J3420 04/05/2018 THER/PROPH/DIAG INJ SC/IM CPT-4: 42816 03/10/2018 VITAMIN B12 INJECTION CPT-4: J3420 03/10/2018 THER/PROPH/DIAG INJ SC/IM CPT-4: 23272 10/19/2017 VITAMIN B12 INJECTION CPT-4: J3420 10/19/2017 URINALYSIS NONAUTO W/O SCOPE CPT-4: 68351 09/17/2017 THER/PROPH/DIAG INJ SC/IM CPT-4: 58305 08/19/2017 VITAMIN B12 INJECTION CPT-4: J3420 08/19/2017 THER/PROPH/DIAG INJ SC/IM CPT-4: 81548 07/06/2017 VITAMIN B12 INJECTION CPT-4: J3420 07/06/2017 THER/PROPH/DIAG INJ SC/IM CPT-4: 58363 04/27/2017 VITAMIN B12 INJECTION CPT-4: J3420 04/27/2017 THER/PROPH/DIAG INJ SC/IM CPT-4: 47800 11/17/2016 VITAMIN B12 INJECTION CPT-4: J3420 11/17/2016 THER/PROPH/DIAG INJ SC/IM CPT-4: 13386 10/12/2016 VITAMIN B12 INJECTION CPT-4: J3420 10/12/2016 THER/PROPH/DIAG INJ SC/IM CPT-4: 77325 09/11/2016 VITAMIN B12 INJECTION CPT-4: J3420 09/11/2016 THER/PROPH/DIAG INJ SC/IM CPT-4: 53529 07/03/2016 VITAMIN B12 INJECTION CPT-4: J3420 07/03/2016 VITAMIN B12 INJECTION CPT-4: J3420 04/20/2016 THER/PROPH/DIAG INJ SC/IM CPT-4: 79641 04/20/2016 ADMIN INFLUENZA VIRUS VAC CPT-4: G0008 03/17/2016 IIV4 FLU VACC NO PRESERV ID Formatting Model/CDA Sections, Assigned to/Kathy Lopez CT: [id number] CPT-4: [id number] 03/17/2016 THER/PROPH/DIAG INJ SC/IM CPT-4: 25769 02/13/2016 VITAMIN B12 INJECTION CPT-4: J3420 02/13/2016 URINALYSIS NONAUTO W/O SCOPE CPT-4: 34956 12/10/2015 THER/PROPH/DIAG INJ SC/IM CPT-4: 59419 12/02/2015 VITAMIN B12 INJECTION CPT-4: J3420 12/02/2015 PNEUMOCOCCAL VACC [address]: [id number] CPT-4: 75045 12/02/2015 IMMUNIZATION ADMIN CPT -4: 69980 12/02/2015 THER/PROPH/DIAG INJ SC/IM CPT-4: 20902 10/29/2015 VITAMIN B12 INJECTION CPT-4: J3420 10/29/2015 THER/PROPH/DIAG INJ SC/IM CPT-4: 17838 06/10/2015 VITAMIN B12 INJECTION CPT-4: J3420 06/10/2015 THER/PROPH/DIAG INJ SC/IM CPT-4: 48845 02/15/2014 VITAMIN B12 INJECTION CPT-4: J3420 02/15/2014 TRIAMCINOLONE ACET INJ NOS CPT-4: J3301 01/15/2014 VITAMIN B12 INJECTION CPT-4: J3420 01/15/2014 THER/PROPH/DIAG INJ SC/IM CPT-4: 00409 12/04/2013 VITAMIN B12 INJECTION CPT-4: J3420 12/04/2013 THER/PROPH/DIAG INJ SC/IM CPT-4: 96328 07/24/2013 VITAMIN B12 INJECTION CPT-4: J3420 07/24/2013 PRESCRIP TRANSMIT VIA ERX SY CPT-4: G8553 06/12/2013 VITAMIN B12 INJECTION CPT-4: J3420 05/10/2013 THER/PROPH/DIAG INJ SC/IM CPT-4: 90318 05/10/2013 TRIAMCINOLONE ACET INJ NOS CPT-4: J3301 03/06/2013 PRESCRIP TRANSMIT VIA ERX SY CPT-4: G8553 03/06/2013 ADMIN INFLUENZA VIRUS VAC CPT-4: G0008 02/20/2013 FLULAVAL VACC, 3 YRS & >, IM CPT-4: Q2036 02/20/2013 THER/PROPH/DIAG INJ SC/IM CPT-4: 37424 02/20/2013 VITAMIN B12 INJECTION CPT-4: J3420 02/20/2013 THER/PROPH/DIAG INJ SC/IM CPT-4: 64017 12/26/2012 TRIAMCINOLONE ACET INJ NOS CPT-4: J3301 12/26/2012 THER/PROPH/DIAG INJ SC/IM CPT-4: 19710 12/21/2012 VITAMIN B12 INJECTION CPT-4: J3420 12/21/2012 THER/PROPH/DIAG INJ SC/IM CPT-4: 90858 11/16/2012 VITAMIN B12 INJECTION CPT-4: J3420 11/16/2012 TB INTRADERMAL TEST (includes injection fee) CPT-4: 17348 09/26/2012 THER/PROPH/DIAG INJ SC/IM CPT-4: 97879 09/12/2012 VITAMIN B12 INJECTION CPT-4: J3420 09/12/2012 TRIAMCINOLONE ACET INJ NOS CPT-4: J3301 08/11/2012 VITAMIN B12 INJECTION CPT-4: J3420 08/11/2012 THER/PROPH/DIAG INJ SC/IM CPT-4: 40967 08/11/2012 VITAMIN B12 INJECTION CPT-4: J3420 07/13/2012 THER/PROPH/DIAG INJ SC/IM CPT-4: 39479 07/13/2012 THER/PROPH/DIAG INJ SC/IM CPT-4: 26003 05/26/2012 TRIAMCINOLONE ACET INJ NOS CPT-4: J3301 05/26/2012 VITAMIN B12 INJECTION CPT-4: J3420 05/26/2012 ADMIN INFLUENZA VIRUS VAC CPT-4: G0008 03/02/2012 FLULAVAL VACC, 3 YRS & >, IM CPT-4: Q2036 03/02/2012 PRESCRIP TRANSMIT VIA ERX SY CPT-4: G8553 02/15/2012 TRIAMCINOLONE ACET INJ NOS CPT-4: J3301 01/13/2012 VITAMIN B12 INJECTION CPT-4: J3420 12/21/2011 VITAMIN B12 INJECTION CPT-4: J3420 10/30/2011 THER/PROPH/DIAG INJ SC/IM CPT-4: 12977 10/30/2011 THER/PROPH/DIAG INJ SC/IM CPT-4: 49656 10/02/2011 VITAMIN B12 INJECTION CPT-4: J3420 10/02/2011 TRIAMCINOLONE ACET INJ NOS CPT-4: J3301 10/02/2011 PRESCRIP TRANSMIT VIA ERX SY CPT-4: G8553 10/02/2011 VITAMIN B12 INJECTION CPT-4: J3420 09/01/2011 URINALYSIS NONAUTO W/O SCOPE CPT-4: 41418 08/03/2011 VITAMIN B12 INJECTION CPT-4: J3420 08/03/2011 THER/PROPH/DIAG INJ SC/IM CPT-4: 29992 08/03/2011 THER/PROPH/DIAG INJ SC/IM CPT-4: 75849 06/11/2011 VITAMIN B12 INJECTION CPT-4: J3420 06/11/2011 ROUTINE VENIPUNCTURE CPT-4: 32317 06/11/2011 THER/PROPH/DIAG INJ SC/IM CPT-4: 08913 02/23/2011 VITAMIN B12 INJECTION CPT-4: J3420 02/23/2011 ADMIN INFLUENZA VIRUS VAC CPT-4: G0008 02/23/2011 FLULAVAL VACC, 3 YRS & >, IM CPT-4: Q2036 02/23/2011 Vital Signs Date Vital 06/16/2018 Blood Pressure 1: 132/78 Code : 8480-6 Heart Rate 1: 120 bpm Height: 5'9" SpO2: 98% Weight: 06/01/2018 Blood Pressure 1: 138/70 Code : 8480-6 BMI: 30.9 Code : 56180-4 Heart Rate 1 : 120 bpm Height: 5'9" Respiratory Rate: 18 bpm SpO2: 96% Weight: 209 lbs 04/05/2018 Blood Pressure 1: 144/80 Code : 8480-6 BMI: 30.9 Code : 82790-9 Heart Rate 1 : 118 bpm Height: 5'9" SpO2: 98% Weight: 209 lbs 03/10/2018 Blood Pressure 1: 162/74 Code : 8480-6 Blood Pressure 1: 128/82 Code: 8480-6 BMI: 30.3 Code: 43384-7 Heart Rate 1: 101 bpm Height: 5'9" SpO2: 98% Weight: 205 lbs 01/13/2018 Blood Pressure 1: 102/78 Code : 8480-6 BMI: 31.6 Code : 29143-3 Heart Rate 1 : 103 bpm Height: 5'9" SpO2: 98% Weight: 214 lbs 11/25/2017 Blood Pressure 1: 114/80 Code : 8480-6 BMI: 30.3 Code : 29204-0 Heart Rate 1 : 112 bpm Height: 5'9" SpO2: 98% Weight: 205 lbs 10/19/2017 Blood Pressure 1: 110/70 Code : 8480-6 BMI: 30.7 Code : 05634-6 Heart Rate 1 : 102 bpm Height: 5'9" SpO2: 97% Weight: 208 lbs 09/17/2017 Blood Pressure 1: 132/78 Code : 8480-6 BMI: 30.4 Code : 87705-0 Heart Rate 1 : 117 bpm Height: 5'9" SpO2: 97% Weight: 206 lbs 09/06/2017 Blood Pressure 1: 110/78 Code : 8480-6 BMI: 29.8 Code : 18096-0 Heart Rate 1 : 106 bpm Height: 5'9" SpO2: 97% Weight: 202 lbs 08/19/2017 Blood Pressure 1: 136/72 Code : 8480-6 BMI: 30.4 Code : 75234-1 Heart Rate 1 : 108 bpm Height: 5'9" SpO2: 94% Weight: 206 lbs 07/06/2017 Blood Pressure 1: 154/80 Code : 8480-6 Heart Rate 1: 111 bpm Height: 5'9" Respiratory Rate: 20 bpm SpO2: 98% Weight: 04/27/2017 Blood Pressure 1: 138/78 Code : 8480-6 BMI: 30.4 Code : 56530-4 Heart Rate 1 : 96 bpm Height: 5'9" SpO2: 97% Weight: 206 lbs 04/06/2017 Blood Pressure 1: 108/80 Code : 8480-6 BMI: 31.0 Code : 18602-8 Heart Rate 1 : 96 bpm Height: 5'9" SpO2: 98% Weight: 210 lbs 02/25/2017 Blood Pressure 1: 132/80 Code : 8480-6 BMI: 32.5 Code : 53273-1 Heart Rate 1 : 112 bpm Height: 5'9" SpO2: 94% Weight: 220 lbs 01/19/2017 Blood Pressure 1: 122/68 Code : 8480-6 Heart Rate 1: 100 bpm Height: 5'9" SpO2: 95% Weight: 11/17/2016 Blood Pressure 1: 132/74 Code : 8480-6 BMI: 32.2 Code : 33312-6 Heart Rate 1 : 98 bpm Height: 5'9" SpO2: 94% Weight: 218 lbs 10/12/2016 Blood Pressure 1: 130/82 Code : 8480-6 BMI: 32.2 Code : 48240-2 Heart Rate 1 : 97 bpm Height: 5'9" SpO2: 94% Weight: 218 lbs 08/18/2016 Blood Pressure 1: 132/78 Code : 8480-6 BMI: 32.0 Code : 50732-3 Heart Rate 1 : 113 bpm Height: 5'9" SpO2: 98% Weight: 217 lbs 08/07/2016 Blood Pressure 1: 126/70 Code : 8480-6 BMI: 33.1 Code : 50377-0 Heart Rate 1 : 102 bpm Height: 5'9" SpO2: 94% Weight: 224 lbs 07/31/2016 Blood Pressure 1: 134/66 Code : 8480-6 BMI: 31.7 Code : 52863-7 Heart Rate 1 : 97 bpm Height: 5'9" SpO2: 95% Temperature: 36.4 (C) / 97.6 (F) Weight: 215 lbs 07/15/2016 Blood Pressure 1: 126/62 Code : 8480-6 Heart Rate 1: 105 bpm Height: 5'9" Weight: 07/07/2016 Blood Pressure 1: 106/54 Code : 8480-6 BMI: 31.7 Code : 65388-9 Heart Rate 1 : 93 bpm Height: 5'9" SpO2: 97% Weight: 215 lbs 06/25/2016 Heart Rate 1: 99 bpm Height: 5'9" SpO2: 95% Weight: 05/07/2016 Blood Pressure 1: 124/86 Code : 8480-6 BMI: 28.5 Code : 96793-5 Heart Rate 1 : 100 bpm Height: 5'9" SpO2: 96% Weight: 193 lbs 04/20/2016 Blood Pressure 1: 120/80 Code : 8480-6 BMI: 28.5 Code : 70033-9 Heart Rate 1 : 86 bpm Height: 5'9" SpO2: 96% Weight: 193 lbs 03/17/2016 Blood Pressure 1: 120/70 Code : 8480-6 BMI: 29.1 Code : 39123-5 Heart Rate 1 : 103 bpm Height: 5'9" SpO2: 96% Weight: 197 lbs 03/05/2016 Blood Pressure 1: 124/78 Code : 8480-6 Heart Rate 1: 82 bpm Height: 5'9" SpO2: 94% Weight: 02/28/2016 Blood Pressure 1: 94/50 Code : 8480-6 Heart Rate 1: 91 bpm Height: 5'9" SpO2: 94% Weight: 02/13/2016 Blood Pressure 1: 128/86 Code : 8480-6 BMI: 28.6 Code : 17969-7 Heart Rate 1 : 100 bpm Height: 5'9" SpO2: 96% Weight: 194 lbs 08/15/2015 Blood Pressure 1: 128/68 Code : 8480-6 BMI: 27.3 Code : 74889-7 Heart Rate 1 : 72 bpm Height: 5'9" SpO2: 92% Weight: 185 lbs 07/25/2015 Blood Pressure 1: 122/76 Code : 8480-6 BMI: 27.5 Code : 76128-4 Heart Rate 1 : 70 bpm Height: 5'9" SpO2: 94% Weight: 186 lbs 06/25/2015 Blood Pressure 1: 118/54 Code : 8480-6 BMI: 26.7 Code : 61370-8 Heart Rate 1 : 98 bpm Height: 5'9" SpO2: 97% Weight: 181 lbs 06/10/2015 Blood Pressure 1: 110/68 Code : 8480-6 Heart Rate 1: 80 bpm Height: SpO2: 98% Weight: 05/08/2015 Blood Pressure 1: 120/68 Code : 8480-6 BMI: 27.5 Code : 97319-0 Heart Rate 1 : 95 bpm Height: 5'9" SpO2: 96% Weight: 186 lbs 03/26/2015 Blood Pressure 1: 120/80 Code : 8480-6 Heart Rate 1: 102 bpm Respiratory Rate: 18 bpm SpO2: 92% Weight: 186 lbs 03/15/2015 Blood Pressure 1: 122/64 Code : 8480-6 BMI: 26.6 Code : 31367-9 Heart Rate 1 : 96 bpm Height: 5'9" SpO2: 96% Weight: 180 lbs 01/10/2015 Blood Pressure 1: 120/68 Code : 8480-6 BMI: 27.5 Code : 09533-6 Heart Rate 1 : 90 bpm Height: 5'9" Weight: 186 lbs 12/21/2014 Blood Pressure 1: 118/78 Code : 8480-6 BMI: 27.2 Code : 53146-6 Heart Rate 1 : 61 bpm Height: 5'9" SpO2: 97% Weight: 184 lbs 10/05/2014 Blood Pressure 1: 118/64 Code : 8480-6 BMI: 27.0 Code : 90573-5 Heart Rate 1 : 76 bpm Height: 5'9" Weight: 183 lbs 06/14/2014 Blood Pressure 1: 120/78 Code : 8480-6 BMI: 26.6 Code : 26141-9 Heart Rate 1 : 96 bpm Height: 5'9" Weight: 180 lbs 01/19/2014 Blood Pressure 1: 128/76 Code : 8480-6 BMI: 27.3 Code : 35107-8 Heart Rate 1 : 82 bpm Height: 5'9" Weight: 185 lbs 01/15/2014 Blood Pressure 1: 110 Code : 8480-6 BMI: 27.9 Code : 15646-6 Heart Rate 1 : 80 bpm Height: 5'9" Weight: 189 lbs 10/20/2013 Blood Pressure 1: 112 Code : 8480-6 BMI: 30.1 Code : 60708-1 Heart Rate 1 : 76 bpm Height: [...] Code : 8480-6 BMI: 30.6 Code : 15741-5 Heart Rate 1 : 92 bpm Height: 5'9" Weight: 207 lbs 05/23/2013 Blood Pressure 1: 120/78 Code : 8480-6 Heart Rate 1: 84 bpm Weight: 05/19/2013 Blood Pressure 1: 126/78 Code : 8480-6 BMI: 30.3 Code : 38057-5 Heart Rate 1 : 88 bpm Height: 5'9" Weight: 205 lbs 05/16/2013 Blood Pressure 1: 126/66 Code : 8480-6 BMI: 30.3 Code : 47618-9 Heart Rate 1 : 84 bpm Height: 5'9" Weight: 205 lbs 03/06/2013 Blood Pressure 1: 128/76 Code : 8480-6 BMI: 30.6 Code : 68610-3 Heart Rate 1 : 88 bpm Height: 5'9" Weight: 207 lbs 12/26/2012 Blood Pressure 1: 142/70 Code : 8480-6 BMI: 29.6 Code : 78836-9 Heart Rate 1 : 100 bpm Height: 5'9" Weight: 200 lbs 8 oz 11/21/2012 Blood Pressure 1: 132/80 Code : 8480-6 BMI: 29.5 Code : 26347-9 Heart Rate 1 : 96 bpm Height: [...] Code : 8480-6 BMI: 29.2 Code : 33852-6 Heart Rate 1 : 64 bpm Height: 5'9" Respiratory Rate: 16 bpm Weight: 198 lbs 03/11/2011 Blood Pressure 1: 106/60 Code : 8480-6 BMI: 28.8 Code : 18850-7 Heart Rate 1 : 100 bpm Height: 5'9" SpO2: 97% Weight: 195 lbs 02/12/2011 Weight: 192 lbs 01/29/2011 Blood Pressure 1: 100/64 Code : 8480-6 BMI: 28.1 Code : 80810-1 Heart Rate 1 : 100 bpm Height: [...] because she complains about Tametha and neither Tametha nor her mom likes to have Marlene [...] Hospital Follow Up _ pain 05/16/2013 left [id number] to left knee-applying neosporin and covering with [...] pt to have a study done at [facility] [employer] [id number] shortness of breath Triggers exertion 03/11/2011 None [...] 02/12/2011 and pt went to her chiropractor/ certified detention deputy this week and was" worked on" and she has been feeling better shortness of breath Alleviating Factors rest 02/12/2011 pt states that her shortness of breath got better after her certified detention deputy adjusted her pelvis gastroesophageal reflux Quality heartburn [...] Encounters Encounter Performer Location Codes Date ) 38921 EST. PATIENT, LEVEL III Diagnosis: Acute upper respiratory infection, unspecified[ICD10: J06.9] Diagnosis: Generalized anxiety disorder[ICD10: F41.1] Valentina Thompson MD, [facility] CPT-4: 84177 06/16/2018 ([id number]) 50318 EST. PATIENT, LEVEL IV Diagnosis: Chronic pain syndrome[ICD10: G89.4] Diagnosis: Generalized anxiety disorder[ICD10: F41.1] Diagnosis: Low back pain[ICD10: M54.5] Diagnosis: Essential (primary) hypertension[ICD10: I10] Aicha Thompson MD, [facility] CPT-4: 19407 06/01/2018 ([id number]) 28861 EST. PATIENT, LEVEL IV Diagnosis: Essential (primary) hypertension[ICD10: I10] Diagnosis: Chronic pain syndrome[ICD10: G89.4] Diagnosis: Vitamin B12 deficiency anemia due to intrinsic factor deficiency[ ICD10: D51.0] Aicha Thompson MD, [facility] CPT-4: 51089 04/05/2018 ([id number]) 05012 EST. PATIENT, LEVEL IV Diagnosis: Essential (primary) hypertension[ICD10: I10] Diagnosis: Generalized anxiety disorder[ICD10: F41.1] Diagnosis: Major depressive disorder, recurrent, mild[ICD10: F33.0] Diagnosis: Vitamin B12 deficiency anemia due to intrinsic factor deficiency[ ICD10: D51.0] Valentina Thompson MD, [facility] CPT-4: 17258 03/10/2018 ([id number]) 12255 EST. PATIENT, LEVEL IV Diagnosis: Headache[ICD10: R51] Diagnosis: Obstructive sleep apnea (adult) (pediatric)[ICD10: G47.33] Diagnosis: Cervicalgia[ICD10: M54.2] Valentina Thompson MD, [facility] CPT-4: 61215 01/13/2018 [id number]) 22771 EST. PATIENT, LEVEL IV Diagnosis: Headache[ICD10: R51] Diagnosis: Spinal stenosis, cervical region[ICD10: M48.02] Diagnosis: Major depressive disorder, recurrent, mild[ICD10: F33.0] Valentina Thompson MD , [facility] CPT-4: 12718 11/25/2017 ([id number]) 27308 EST. PATIENT, LEVEL III Diagnosis: Allergic contact dermatitis due to plants, except food[ICD10: L23.7] Diagnosis: Vitamin B12 deficiency anemia due to intrinsic factor deficiency[ ICD10: D51.0] Valentina Thompson MD, [facility] CPT-4: 97636 10/19/2017 ([id number]) 15388 EST. PATIENT, LEVEL IV Diagnosis: Generalized abdominal pain[ICD10: R10.84] Diagnosis: Urinary tract infection, site not specified[ICD10: N39.0] Diagnosis: Hypokalemia[ICD10: E87.6] Valentina Thompson MD, [facility] CPT-4: 46119 09/17/2017 ([id number]) 40062 EST. PATIENT, LEVEL IV Diagnosis: Chronic pain syndrome[ICD10: G89.4] Diagnosis: Pain in left knee[ICD10: M25.562] Diagnosis: Pain in right knee[ICD10: M25.561] Diagnosis: Essential (primary) hypertension[ICD10: I10] Aicha Thompson MD, [facility] CPT-4: 62477 09/06/2017 ([id number]) 01348 EST. PATIENT, LEVEL IV Diagnosis: Headache[ICD10: R51] Diagnosis: Chronic pain syndrome[ICD10: G89.4] Diagnosis: Mixed hyperlipidemia[ICD10: E78.2] Diagnosis: Vitamin D deficiency, unspecified[ICD10: E55.9] Diagnosis: Vitamin B12 deficiency anemia, unspecified[ICD10: D51.9] Valentina Thompson MD , [facility] CPT-4: 59075 08/19/2017 66529 EST. PATIENT, LEVEL V Diagnosis: Essential (primary) hypertension[ICD10: I10] Diagnosis: Vitamin B12 deficiency anemia due to intrinsic factor deficiency[ ICD10: D51.0] Diagnosis: Chronic pain syndrome[ICD10: G89.4] Aicha Thompson MD, [facility] CPT-4: 94306 07/06/2017 ([id number]) 91573 EST. PATIENT, LEVEL IV Diagnosis: Cervicalgia[ICD10: M54.2] Diagnosis: Laceration without foreign body of scalp, initial encounter[ICD10: S01.01XA] Diagnosis: Vitamin B12 deficiency anemia due to intrinsic factor deficiency[ ICD10: D51.0] Valentina Thompson MD, [facility] CPT-4: 13359 04/27/2017 27274 EST. PATIENT, LEVEL II Diagnosis: Residual hemorrhoidal skin tags[ICD10: K64.4] Valentina Thompson MD, [facility] CPT-4: 24493 04/06/2017 ([id number]) 65516 EST. PATIENT, LEVEL III Diagnosis: Pain in right foot[ICD10: M79.671] Diagnosis: Pain in left foot[ICD10: M79.672] Diagnosis: Cervicalgia[ICD10: M54.2] Valentina Thompson MD, [facility] CPT-4: 53784 02/25/2017 ([id number]) 83994 EST. PATIENT, LEVEL IV Diagnosis: Essential (primary) hypertension[ICD10: I10] Diagnosis: Chronic pain syndrome[ICD10: G89.4] Diagnosis: Spinal stenosis, cervical region[ICD10: M48.02] Diagnosis: Pain in right leg[ICD10: M79.604] Valentina Thompson MD, [facility] CPT-4: 40686 01/19/2017 ([id number]) 21466 EST. PATIENT, LEVEL III Diagnosis: Pain in right foot[ICD10: M79.671] Diagnosis: Pain in left foot[ICD10: M79.672] Diagnosis: Chronic pain syndrome[ICD10: G89.4] Diagnosis: Vitamin B12 deficiency anemia, unspecified[ICD10: D51.9] Valentina Thompson MD , [facility] CPT-4: 47667 11/17/2016 ([id number]) 53430 EST. PATIENT, LEVEL IV Diagnosis: Essential (primary) hypertension[ICD10: I10] Diagnosis: Chronic pain syndrome[ICD10: G89.4] Diagnosis: Foot drop, right foot[ICD10: M21.371] Diagnosis: Foot drop, left foot[ICD10: M21.372] Diagnosis: Other abnormalities of gait and mobility[ICD10: R26.89] Diagnosis: Vitamin B12 deficiency anemia due to intrinsic factor deficiency[ ICD10: D51.0] Aicha Thompson MD, [facility] CPT-4: 07374 10/12/2016 ([id number]) 82100 EST. PATIENT, LEVEL III Diagnosis: Pain in right ankle and joints of right foot[ICD10: M25.571] Diagnosis: Superficial foreign body, right foot, initial encounter[ICD10: S90.851A] Valentina Thompson MD, [facility] CPT-4: 69079 ([id number]) 06745 EST. PATIENT, LEVEL III Diagnosis: Candidiasis of vulva and vagina[ICD10: B37.3] Diagnosis: Vitamin B12 deficiency anemia, unspecified[ICD10: D51.9] Valentina Thompson MD , [facility] CPT-4: 15389 08/07/2016 ([id number]) 92118 EST. PATIENT, LEVEL III Diagnosis: Spinal stenosis, cervical region[ICD10: M48.02] Diagnosis: Pain in right ankle and joints of right foot[ICD10: M25.571] Diagnosis: Pain in left ankle and joints of left foot[ICD10: M25.572] Valentina Thompson MD, [facility] CPT-4: 43425 07/31/2016 84353 EST. PATIENT, LEVEL III Diagnosis: Cervicalgia[ICD10: M54.2] Diagnosis: Chronic pain syndrome[ICD10: G89.4] Beatriz Thompson MD, [facility] CPT-4: 17969 07/15/2016 ([id number]) 79023 EST. PATIENT, LEVEL III Diagnosis: Spinal stenosis, cervical region[ICD10: M48.02] Diagnosis: Low back pain[ICD10: M54.5] Valentina Thompson MD, [facility] CPT-4: 89851 07/07/2016 ([id number]) 80323 EST. PATIENT, LEVEL IV Diagnosis: Cervicalgia[ICD10: M54.2] Diagnosis: Essential (primary) hypertension[ICD10: I10] Diagnosis: Mixed hyperlipidemia[ICD10: E78.2] Aicha Thompson MD, [facility] CPT-4: 01623 06/25/2016 ([id number]) 54957 EST. PATIENT, LEVEL III Diagnosis: Cervicalgia[ICD10: M54.2] Valentina Thompson MD, [facility] CPT-4: 02470 05/07/2016 ([id number]) 64621 EST. PATIENT, LEVEL III Diagnosis: Pleurodynia[ICD10: R07.81] Diagnosis: Generalized anxiety disorder[ICD10: F41.1] Diagnosis: Vitamin B12 deficiency anemia due to intrinsic factor deficiency[ ICD10: D51.0] Diagnosis: Hypoxemia[ICD10: R09.02] Valentina Thompson MD, [facility] CPT-4: 05306 04/20/2016 ([id number]) 89463 EST. PATIENT, LEVEL III Diagnosis: Generalized anxiety disorder[ICD10: F41.1] Diagnosis: Radiculopathy, lumbar region[ICD10: M54.16] Valentina Thompson MD, [facility] CPT-4: 96716 03/17/2016 82767 EST. PATIENT, LEVEL IV Diagnosis: Chronic pain syndrome[ICD10: G89.4] Diagnosis: Radiculopathy, lumbar region[ICD10: M54.16] Diagnosis: Generalized anxiety disorder[ICD10: F41.1] Beatriz Thompson MD, [facility] CPT-4: 98176 03/05/2016 ([id number]) 81171 EST. PATIENT, LEVEL III Diagnosis: Radiculopathy, lumbar region[ICD10: M54.16] Diagnosis: Generalized anxiety disorder[ICD10: F41.1] Valentina Thompson MD, [facility] CPT-4: 81944 02/28/2016 ([id number]) 89628 EST. 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 PATIENT, LEVEL III Diagnosis: Headache[ICD10: R51] Diagnosis: Cervicalgia[ICD10: M54.2] Valentina Thompson MD, [facility] CPT-4: 67512 08/15/2015 ([id number]) 05797 EST. PATIENT, LEVEL III Diagnosis: Generalized anxiety disorder[ICD10: F41.1] Diagnosis: Cervicalgia[ICD10: M54.2] Valentina Thompson MD, [facility] CPT-4: 95473 07/25/2015 ([id number]) 63248 EST. PATIENT, LEVEL IV Diagnosis: Pain in right foot[ICD10: M79.671] Diagnosis: Unspecified osteoarthritis, unspecified site[ICD10: M19.90] Diagnosis: Pain in left ankle and joints of left foot[ICD10: M25.572] Diagnosis: Pain in right ankle and joints of right foot[ICD10: M25.571] Valentina Thompson MD, [facility] CPT-4: 78333 06/25/2015 ([id number]) 26617 EST. 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 PATIENT, LEVEL IV Diagnosis: Essential (primary) hypertension[ICD10: I10] Diagnosis: Pain in right foot[ICD10: M79.671] Diagnosis: Pain in left foot[ICD10: M79.672] Diagnosis: Anxiety disorder, unspecified[ICD10: F41.9] Aicha Thompson MD, [facility] CPT-4: 98828 05/08/2015 ([id number]) 14984 EST. 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 PATIENT, LEVEL III Diagnosis: Chronic pain syndrome[ICD10: G89.4] Diagnosis: Unspecified osteoarthritis, unspecified site[ICD10: M19.90] Diagnosis: Pain in right foot[ICD10: M79.671] Diagnosis: Pain in left foot[ICD10: M79.672] Beatriz Thompson MD, [facility] CPT -4: 28170 03/15/2015 ([id number]) 75133 EST. PATIENT, LEVEL III Diagnosis: Abrasion of knee, left[ICD9: 916.0] Valentina Thompson MD, [facility] CPT-4: 70210 01/10/2015 ([id number]) 23419 EST. PATIENT, LEVEL IV Diagnosis: CHRONIC PAIN SYNDROME[ICD9: 338.4] Diagnosis: MYALGIA AND MYOSITIS[ICD9: 729.1] Diagnosis: OSTEOARTH NOS-UNSPEC[ICD9: 715.90] Diagnosis: DEPRESSIVE DISORDER NEC[ICD9: 311] Diagnosis: GENERALIZED ANXIETY DISEASE[ICD9: 300.02] Valentina Thompson MD, [facility] CPT-4: 77670 12/21/2014 ([id number]) 56808 EST. PATIENT, LEVEL IV Diagnosis: GENERALIZED ANXIETY DISEASE[ICD9: 300.02] Diagnosis: DEPRESSIVE DISORDER NEC[ICD9: 311] Diagnosis: ESSENTIAL HYPERTENSION[ICD9: 401.9] Valentina Thompson MD, [facility] CPT-4: 10100 10/05/2014 ([id number]) 71118 EST. PATIENT, LEVEL III Diagnosis: Knee pain, right[ICD9: 719.46] Diagnosis: CHRONIC PAIN SYNDROME[ICD9: 338.4] Diagnosis: Ankle pain[ICD9: 719.47] Aicha Thompson MD, [facility] CPT-4: 42268 06/14/2014 ([id number]) 05976 EST. PATIENT, LEVEL III Diagnosis: Constipation[ICD9: 564.00] Diagnosis: Hemorrhoids[ICD9: 455.6] Valentina Thompson MD, [facility] CPT-4: 14438 01/19/2014 ([id number]) 91952 EST. PATIENT, LEVEL III Diagnosis: Ulcer of knee[ICD9: 707.19] Diagnosis: Hemorrhoids[ICD9: 455.6] Diagnosis: B12 deficiency[ICD9: 266.2] Diagnosis: ALLERGIC RHINITIS[ICD9: 477.9] Valentina Thompson MD, [facility] CPT-4: 24294 01/15/2014 ([id number]) 90368 EST. PATIENT, LEVEL IV Diagnosis: EDEMA[ICD9: 782.3] Diagnosis: Open wound of knee[ICD9: 891.0] Diagnosis: CHRONIC PAIN SYNDROME[ICD9: 338.4] Diagnosis: ANEMIA[ICD9: 285.9] Valentina Thompson MD, [facility] CPT-4: 32442 10/20/2013 ([id number]) 71133 EST. PATIENT, LEVEL III Diagnosis: ULCER OTH PART LOW LIMB[ICD9: 707.19] Valentina Thompson MD [facility] CPT-4: 21639 07/24/2013 ([id number]) 17371 EST. PATIENT, LEVEL III Diagnosis: ULCER OTH PART LOW LIMB[ICD9: 707.19] Valentina Thompson MD [facility] CPT-4: 73671 06/23/2013 ([id number]) 05696 EST. PATIENT, LEVEL III Diagnosis: ULCER OTH PART LOW LIMB[ICD9: 707.19] Valentina Thompson MD [facility] CPT-4: 17248 06/12/2013 ([id number]) Miscellaneous no charge Diagnosis: ULCER OTH PART LOW LIMB[ICD9: 707.19] Valentina Thompson MD [facility] CPT-4: 48312 05/29/2013 ([id number]) 70441 EST. PATIENT, LEVEL III Diagnosis: ULCER OTH PART LOW LIMB[ICD9: 707.19] Valentina Thompson MD [facility] CPT-4: 94454 05/23/2013 ([id number]) Miscellaneous no charge Diagnosis: ULCER OTH PART LOW LIMB[ICD9: 707.19] Valentina Thompson MD [facility] CPT-4: 31524 05/19/2013 ([id number]) 95345 EST. PATIENT, LEVEL III Diagnosis: Ulcer of knee[ICD9: 707.19] Valentina Thompson MD [facility] CPT-4: 92459 05/16/2013 ([id number]) 11085 EST. PATIENT, LEVEL III Diagnosis: ALLERGIC RHINITIS[ICD9: 477.9] Aicha Thompson MD [facility] CPT- 4: 21609 03/06/2013 ([id number]) 93800 EST. PATIENT, LEVEL IV Diagnosis: Ankle pain[ICD9: 719.47] Diagnosis: ALLERGIC RHINITIS[ICD9: 477.9] Diagnosis: ESSENTIAL HYPERTENSION[SNOMED: 70421101] Aicha Thompson MD [facility] CPT-4: 69141 12/26/2012 ([id number]) 87408 EST. PATIENT, LEVEL IV Diagnosis: ESSENTIAL HYPERTENSION[SNOMED: 01709021] Diagnosis: JOINT PAIN-L/LEG[ICD9: 719.46] Diagnosis: GENERALIZED ANXIETY DISEASE[ICD9: 300.02] Diagnosis: UNSPECIFIED ASTHMA[ICD9: 493.90] Aicha Thompson MD [facility] CPT-4: 84659 11/21/2012 ([id number]) Miscellaneous no charge Diagnosis: Encounter for tuberculin skin test[ICD9: V74.1] Aicha Thompson MD [facility] CPT-4: 63486 09/28/2012 ([id number]) 26876 EST. PATIENT, LEVEL IV Diagnosis: FEVER NOS[ICD9: 780.60] Diagnosis: PNEUMONIA (CAP)[ICD9: 486] Aicha Thompson MD [facility] CPT- 4: 93928 07/21/2012 ([id number]) 13755 EST. PATIENT, LEVEL IV Diagnosis: JOINT PAIN-ANKLE[ICD9: 719.47] Diagnosis: MUSCLE/LIGAMENT DIS NEC[ICD9: 728.89] Diagnosis: Fibromyalgia muscle pain[ICD9: 729.1] Aicha Thompson MD [facility] CPT-4: 04368 07/13/2012 ([id number]) 83956 EST. PATIENT, LEVEL IV Diagnosis: Right foot pain[ICD9: 729.5] Diagnosis: Plantar fasciitis[ICD9: 728.71] Diagnosis: GENERALIZED ANXIETY DISEASE[ICD9: 300.02] Diagnosis: B-COMPLEX DEFIC NEC[ICD9: 266.2] Aicha Thompson MD, [facility] CPT-4: 96384 05/26/2012 ([id number]) 78809 EST. PATIENT, LEVEL IV Diagnosis: Chest wall pain[ICD9: 786.52] Diagnosis: Esophageal reflux[ICD9: 530.81] Diagnosis: ALLERGIC RHINITIS[ICD9: 477.9] Valentina Thompson MD, [facility] CPT-4: 13074 02/15/2012 ([id number]) 98235 EST. PATIENT, LEVEL IV Diagnosis: ALLERGIC RHINITIS[ICD9: 477.9] Diagnosis: HYPERLIPIDEMIA[ICD9: 272.4] Aicha Thompson MD [facility] CPT- 4: 64533 01/13/2012 ([id number]) 19316 EST. PATIENT, LEVEL IV Diagnosis: JOINT PAIN-L/LEG[ICD9: 719.46] Diagnosis: UNSPECIFIED ASTHMA[ICD9: 493.90] Diagnosis: Costalchondritis[ICD9: 733.6] Aicha Thompson MD, [facility] CPT- 4: 06625 12/21/2011 ([id number]) 56334 EST. PATIENT, LEVEL IV Diagnosis: Hyperlipidemia[ICD9: 272.4] Diagnosis: ALLERGIC RHINITIS[ICD9: 477.9] Diagnosis: B12 deficiency[ICD9: 266.2] Diagnosis: Hypopotassemia[ICD9: 276.8] Valentina Thompson MD, [facility] CPT-4: 79982 10/02/2011 ([id number]) 59780 EST. PATIENT, LEVEL IV Diagnosis: Pain in joint involving forearm[ICD9: 719.43] Diagnosis: Neck pain[ICD9: 723.1] Diagnosis: Fall on same level from slipping, tripping, or stumbling[ICD9: E885.9 ] Diagnosis: B12 deficiency[ICD9: 266.2] Aicha Thompson MD, [facility] CPT- 4: 28080 09/01/2011 ([id number]) 24302 EST. PATIENT, LEVEL IV Diagnosis: Vulvovaginitis[ICD9: 616.10] Diagnosis: OVERWEIGHT[ICD9: 278.02] Diagnosis: MYALGIA AND MYOSITIS[ICD9: 729.1] Aicha Thompson MD, [facility] CPT-4: 92071 08/03/2011 ([id number]) 51313 EST. PATIENT, LEVEL IV Diagnosis: MUSCLE/LIGAMENT DIS NEC[ICD9: 728.89] Diagnosis: CHRONIC PAIN SYNDROME[ICD9: 338.4] Diagnosis: Weight gain[ICD9: 783.1] [facility] CPT-4: 29338 06/29/2011 93368 EST. PATIENT, LEVEL IV Diagnosis: Wrist pain[ICD9: 719.43] Diagnosis: Knee pain, right[ICD9: 719.46] Diagnosis: Fall on same level from slipping, tripping, or stumbling[ICD9: E885.9 ] Aicha Thompson MD, [facility] CPT-4: 72420 06/22/2011 14141 EST. PATIENT, LEVEL IV Diagnosis: MUSCLE/LIGAMENT DIS NEC[ICD9: 728.89] Diagnosis: JOINT PAIN-L/LEG[ICD9: 719.46] Diagnosis: OSTEOARTH NOS-UNSPEC[ICD9: 715.90] Diagnosis: B12 deficiency[ICD9: 266.2] Aicha Thompson MD, [facility] CPT- 4: 29322 06/11/2011 74975 EST. 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 PATIENT, LEVEL IV Diagnosis: Knee pain, bilateral[ICD9: 719.46] Diagnosis: Iliotibial band syndrome[ICD9: 728.89] Diagnosis: Fibromyalgia syndrome[ICD9: 729.1] Aicha Thompson MD, [facility] CPT-4: 32983 02/12/2011 88741 EST. PATIENT, LEVEL IV Diagnosis: FALL FROM SLIPPING[ICD9: E885.9] Diagnosis: Pain in joint involving lower leg[ICD9: 719.46] Diagnosis: ESOPHAGEAL REFLUX[ICD9: 530.81] Diagnosis: ESSENTIAL HYPERTENSION[SNOMED: 11192239] [facility] CPT-4: 39591 01/29/2011 Plan of Care Planned Activity Notes Codes Status Date Patient Education: Patient Medication Summary Completed 07/08/2018 [...] wear her CPAP the past few days. Jojvkez-dnhdguf-abjefthfi patient continue taper of medication as discussed with Dr Thompson -continue counseling 06/16/2018 Appointment: Valentina Smith WPtel: [address] [place], [place] [phone] (30 min) [facility] 06/16/2018 Patient Education: Patient Medication Summary Completed [...] her psychiatrist. 06/01/2018 Appointment: [phone] (30 min) Complex 06/01/2018 Patient Education: Patient Medication Summary Completed 06/01/2018 Patient Education: Back Pain Completed 06/01/2018 Patient Education: Hypertension Completed 06/01/2018 Patient Education: Obesity Completed 06/01/2018 Appointment: [phone] (15 min) Moderate 04/18/2018 Visit Plan: Hypertension [...] the hydrocodone. 04/05/2018 Appointment: Aicha Thompson WPtel: [phone] [facility] [place] (30 min) Complex 04/05/2018 Patient Education: Patient Medication Summary Completed 04/05/2018 Appointment: Aicha Thompson WPtel: [phone] [facility] [place] (15 min) Moderate 03/17/2018 Visit Plan: [...] weeks 03/10/2018 Appointment: Valent[facility] Smith [facility]el: [phone] [place] (15 min) Moderate 03/10/2018 Appointment: Aicha Thompson WPtel: [phone] [facility] [place] (15 min) Moderate 03/10/2018 Patient Education: Patient [...] appt scheduled 01/13/2018 Appointment: Valentina Smith WPtel: [facility]1 [phone] (15 min) Moderate 01/13/2018 Patient Education: Patient [...] current medications. 11/25/2017 Appointment: Valentina Smith WPtel: [facility]4 [phone] (30 min) Complex 11/25/2017 Patient Education: Patient Medication Summary Completed 11/25/2017 Visit Plan: Contact dermatitis-discussed natural and expected course of this diagnosis and to alert me if symptoms do not resolve or if any worse. RX sent to patient's pharmacy and instructed on use. 10/19/2017 Appointment: Valentina Smith WPtel: [address] [place], [place] [phone] (15 min) Moderate 10/19/2017 Patient Education: Patient Medication Summary Completed 10/19/2017 Appointment: Valentina Smith WPtel: [address] [place], [place] [phone] (30 min) Complex 09/27/2017 Visit Plan: Generalized abd wiev-JQD-eldwms cipro/flagyl- culture urine-recommend patient follow up with Dr Grace for an appt if abdominal pain does not improve Low potassium-check labs 09/17/2017 Visit Plan: Generalized abd rnnk-TRK-gtakbk cipro/flagyl- culture urine-recommend patient follow up with Dr Grace for an appt if abdominal pain does not improve Low potassium-check labs 09/17/2017 Appointment: Valentian Smith WPtel: [facility]5 [phone] (30 min) Complex 09/17/2017 Patient Education: Patient [...] of over-medication. 09/06/2017 Appointment: Aicha Thompson WPtel: [address] [place], [place] [phone] (30 min) Complex 09/06/2017 Patient Education: Patient Medication Summary Completed 09/06/2017 Appointment: Aicha Thompson WPtel: [facility]5 [facility] (30 min) Complex 09/02/2017 Appointment: Aicha Thompson WPtel: [address] [place], [place] [phone] (30 min) Complex 08/23/2017 Visit Plan: Headaches-neck pain-patient is to let us know which neurologist she wants to see B12 def-injection today in the office Hyperlipidemia-check labs Vitamin D def-check level 08/19/2017 Appointment: Valentina Smith WPtel: [facility]5 [phone] (30 min) Complex 08/19/2017 Patient Education: Patient [...] the list of the neurologists that her steam shovel runner has recommended and we would consider a [...] the list of the neurologists that her steam shovel runner has recommended and we would consider a [...] the psychiatrist. 07/06/2017 Appointment: Aicha Thompson WPtel: [facility] (30 min) Complex 07/06/2017 Patient Education: Patient Medication Summary Completed 07/06/2017 Appointment: Aicha Thompson WPtel: [facility] [place] (30 min) Complex 07/05/2017 Appointment: Valentina Smith WPtel: [phone] [place] (30 min) Complex 05/17/2017 Appointment: Beatriz Mojica WPtel: [phone] (30 min) Complex 05/14/2017 Visit Plan: Neck muwp-ubusxyl-puneduh to continue f/u with [facility]-her symptoms have [...] of plan. 04/27/2017 Appointment: Valentina Smith WPtel: [facility]7 [phone] (30 min) Complex 04/27/2017 Patient Education: Patient Medication Summary Completed 04/27/2017 Patient Education: Obesity Completed 04/27/2017 Visit Plan: Hemorrhoidal skin tag-no acute inflammation today -may use hemorrhoid cream as directed as needed-call with any concerns, bleeding, etc. 04/06/2017 Appointment: Valentina Smith WPtel: [address] [place], [place] [phone] (30 min) Complex 04/06/2017 Patient Education: Patient Medication Summary Completed 04/06/2017 Patient Education: Obesity Completed 04/06/2017 Visit Plan: Bilateral foot and ankle pain-now has AFOs-we have made her several appt with podiatrists which she has not kept-recommend patient call Dr Saunders and reschedule appt with him. Neck pain-[facility] appt next week-KEEP APPOINTMENT! 02/25/2017 Appointment: Valentina Smith WPtel: [facility]4 [phone] (30 min) Complex 02/25/2017 Patient Education: [...] podiatry for evaluation-w[place] to see someone in [place] 11/17/2016 Appointment: Valentina Smith WPtel: [facility]8 [phone] (30 min) Complex 11/17/2016 Patient Education: Patient Medication Summary Completed 11/17/2016 Appointment: Valentina Smith WPtel: [facility]5 [phone] (30 min) Complex 11/16/2016 Visit Plan: [place] referral - pt to indicate when and who she would like to go to - for neck and back AFO for both legs - [facility] in [place], [place]- fax #[phone] pt has been seen by perinatal specialist - need brace because of bilateral [...] over- medication. 10/12/2016 Appointment: Aicha Thompson WPtel: [facility] (30 min) Complex 10/12/2016 Patient Education: Patient Medication Summary Completed 10/12/2016 Patient Education: Obesity Completed 10/12/2016 Appointment: Injection 09/11/2016 Patient Education: Patient Medication Summary Completed 09/11/2016 Visit Plan: Right ankle pain/instability-xray negative- will obtain MRI ankle Ulcer right foot-instructed patient on wound care and the importance of keeping wound clean-f/u in 10-14 days for re-evaluation 08/18/2016 Appointment: Valentina Smith WPtel: [facility]5 [phone] (30 min) Complex 08/18/2016 Patient Education: Patient Medication Summary Completed 08/18/2016 Patient Education: Obesity Completed 08/18/2016 Care Plan: X-RAY EXAM NECK SPINE 2-3 VW LOINC : 09030-5 Pending 08/15/2016 Visit Plan: Vaginal yeast infection-RX for diflucan B12 deficiency-check labs 08/07/2016 Appointment: Valentina Smith WPtel: [phone] [phone] (30 min) Complex 08/07/2016 Patient Education: Patient Medication Summary Completed 08/07/2016 Visit Plan: Cervical stenosis-saw Dr Ramey-Dr Ramey is going to send her to for further evaluation Bilateral ankle pain-xray ankles 07/31/2016 Appointment: Valentina Smith WPtel: [phone] [phone] (30 min) Complex 07/31/2016 Patient Education: Patient Medication Summary Completed 07/31/2016 Patient Education: Obesity Completed 07/31/2016 Visit Plan: Neck pain after fall - Will check x-ray, Pt is to follow up with Dr. Perez. Pt is to notify clinic if symptoms do not improve , if they worsen, or with any questions or concerns. 07/15/2016 Appointment: Beatriz Mojica [facility]el[phone] (30 min) Complex 07/15/2016 Patient Education: Patient [...] Injection 07/03/2016 Appointment: Valentina Smith WPtel: [phone] [phone] (30 min) Complex 07/03/2016 Patient Education: [...] despite PT. 05/07/2016 Appointment: Valentina Smith WPtel: [facility]5 [phone] (30 min) [facility] 05/07/2016 Patient Education: Patient Medication Summary Completed 05/07/2016 Patient Education: Obesity Completed 05/07/2016 Care Plan: MRI NECK SPINE W/O DYE LOINC : 89871-6 Pending 05/07/2016 Visit Plan: Chronic Depression and [...] monitor symptoms 04/20/2016 Appointment: Valentina Smith WPtel: [phone] [phone] [place] (30 min) Complex 04/20/2016 Patient Education: Patient Medication Summary Completed 04/20/2016 Appointment: Valentina Smith WPtel: [phone] [phone] [place] (30 min) Complex 03/19/2016 Visit Plan: [...] Dr Ibarra 03/17/2016 Appointment: Valentina Smith WPtel: [phone] [place] (30 min) Complex 03/17/2016 Patient Education: Patient [...] current medications. 02/28/2016 Appointment: Valentina Smith WPtel: [address] [place], [place] [phone] [place] [address] (15 min) Moderate 02/28/2016 Patient Education: Patient Medication Summary Completed 02/28/2016 Appointment: Valentina Smith WPtel: [address] [place], [place] [phone] [place] [address] (30 min) Complex 02/27/2016 Visit Plan: Hypertension [...] d level 02/13/2016 Appointment: Valentina Smith WPtel: [facility]5 [phone] (30 min) Complex 02/13/2016 Patient Education: Patient Medication Summary Completed 02/13/2016 Patient Education: Obesity Completed 02/13/2016 Care Plan: Tsh Pending 02/13/2016 Care Plan: Lipid Pending 02/13/2016 Care Plan: Comp Metabolic patient to come fasting Pending 02/13/2016 Care Plan: Vitamin D 25 Oh Cancelled 02/13/2016 Care Plan: Cbc With Differential Pending 02/13/2016 Patient Education: Patient Medication Summary Completed 02/03/2016 Care Plan: SCREENINGMAMMOGRAPHYDIGITAL LOINC : 26764-9 Pending 02/03/2016 Appointment: Injection 01/15/2016 Appointment: Lab [...] EXAM NECK SPINE 2-3 VW LOINC : 03320-8 Ordered 08/15/2015 Visit Plan: Anxiety-fairly well controlled-does [...] side effects. 05/08/2015 Appointment: Aicha Thompson WPtel: [facility] (30 min) Complex 05/08/2015 Patient Education: Patient [...] Care Plan: COMPLETE CBC AUTOMATED LOINC : 55470-9 Ordered 10/05/2014 Visit Plan: Chronic Pain Syndrome - pt has chronic pain - has been maintained on current medications, has not sought out other medications , only uses PRN pain medications as directed, and understands the consequences of over-medication. Right hip/knee/ankle pain-improving since last fall- continue physical therapy exercises-continue supportive shoes and use walker for stability 06/14/2014 Appointment: Valentina Smith WPtel: [address] [place] [phone] Follow up 06/14/2014 Patient Education: Patient Medication [...] the instructions given to her from her steel worker and she is to call him if her constipation is uncontrolled. Hemorrhoids-use suppositories as directed. 01/19/2014 Patient Education: Patient Medication Summary Completed 01/19/2014 Visit Plan: Ulcer of upki-mtnxvlr-lsegq instructions provided today and instructed patient to return as directed-keep wound clean and dry. Hemorrhoids-refill anusol suppositories and use as directed B12 deficiency-b12 injection today in the office Zzeioykpa-bkejdiwloero-qkixetp injection today in the office-continue oral medications [...] Anemia-check labs 10/20/2013 Appointment: Valentina Smith WPtel: [address] [place], [place] [phone] [place] Other 10/20/2013 Patient Education: Patient Medication Summary Completed 10/20/2013 Appointment: Valentina Smith WPtel: [facility]5 [phone] [place] Injection 08/21/2013 Appointment: Aicha Thompson WPtel: [address] [place], [place] [phone] [place] Follow up 07/31/2013 Visit Plan: Ulcer of knee healing-silver nitrate to granulation tissue-instructed patient to monitor and call if it does not completely heal for appointment-instructed on wound care-patient and mother verbalized understanding of plan. 07/24/2013 Patient Education: Patient Medication Summary Completed 07/24/2013 Patient Education: Patient Medication Summary Completed 07/24/2013 Appointment: Valentina Smith WPtel: [address] [place], [place] [phone] Follow up 07/03/2013 Visit Plan: Ulcer-left knee-fibrous tissue removed from wound bed to reveal pink granulation tissue-wound cleansed and dressing applied. Instructed patient on wound care. Return in 10 days for follow up. 06/23/2013 Appointment: Valentina Smith WPtel: [address] [place], [place] [phone] Follow up 06/23/2013 Patient Education: Patient Medication Summary Completed 06/23/2013 Appointment: Valentina Smith WPtel: [address] [place], [place] [phone] Follow up 06/22/2013 Appointment: Aicha Thompson WPtel: [address] [place], [place] [phone] Follow up 06/22/2013 Visit Plan: Ulcer-left knee-fibrous tissue removed from wound bed to reveal pink granulation tissue-wound cleansed and dressing applied. Instructed patient on wound care. Return in 10 days for follow up. 06/12/2013 Appointment: Valentina Smith WPtel: [address] [place], [place] [phone] Follow up 06/12/2013 Patient Education: Patient Medication Summary Completed 06/12/2013 Appointment: Aicha Thompson WPtel: [address] [place], [place] [phone] Follow up 06/08/2013 Visit Plan: Ulcer left ipil-uargigqv-f/u in 10 days 05/29/2013 Appointment: Valentina Smith WPtel: [address] [place], [place] [phone] Follow up 05/29/2013 Patient Education: Patient Medication Summary Completed 05/29/2013 Visit Plan: Ulcer of knee-sharp debridement today in the office--wound care instructions provided for patient-patient and mother verbalized understanding of plan. Follow up next week. 05/23/2013 Appointment: Valentina Smith WPtel: [address] [place], [place] [id number] [place] Follow up 05/23/2013 Patient Education: Patient Medication Summary Completed 05/23/2013 Appointment: Valentina Smith WPtel: [address] [place], [place] [phone] Follow up 05/22/2013 Visit Plan: Ulcer of knee-wound care instructions provided for patient-patient and mother verbalized understanding of plan. 05/19/2013 Appointment: Valentina Smith WPtel: [address] [place], [place] [phone] Other 05/19/2013 Patient Education: Patient Medication Summary Completed 05/19/2013 Visit Plan: Ulcer of knee-fibrous tissue debrided today in the office--wound care instructions provided for patient-return in 1 week for follow up. 05/16/2013 Appointment: Valentina Smith WPtel: [address] [place], [place] [phone] [place] [address] Hospital follow up 05/16/2013 Patient Education: Patient Medication Summary Completed 05/16/2013 Appointment: Aicha Thompson WPtel: [address] [place], [place] [phone] Injection 05/10/2013 Patient Education: Patient Medication Summary [...] the office. 03/06/2013 Appointment: Valentina Smith WPtel: [address] [place], [place] [phone] Other 03/06/2013 Patient Education: Patient Medication Summary Completed 03/06/2013 Appointment: Aicha Thompson WPtel: [address] [place], [place] [phone] Nurse Visit 02/20/2013 Patient Education: Patient Medication Summary Completed 02/20/2013 Appointment: [facility]ich[facility] Thompson [phone] [facility] [place] Follow up 01/16/2013 Visit Plan: Joint pain [...] concerns. 12/26/2012 Appointment: [facility]ich[facility] Thompson [phone] [facility] [place] Other 12/26/2012 Patient Education: Patient Medication Summary Completed 12/26/2012 Patient Education: Hypertension Completed 12/26/2012 Appointment: Aicha Thompson [facility]el[phone] [facility] [place] Lab Draw 12/21/2012 Patient Education: Patient [...] acute changes 11/21/2012 Appointment: Aicha Thompson WPtel: [facility] [place] Follow up 11/21/2012 Patient Education: Patient Medication Summary Completed 11/21/2012 Patient Education: Hypertension Completed 11/21/2012 Appointment: Aicha Thompson WPtel: [facility] [place] Injection 11/16/2012 Patient Education: Patient Medication Summary Completed 11/16/2012 Appointment: Aicha Thompson WPtel: [facility] [place] Injection 09/28/2012 Patient Education: Patient Medication Summary Completed 09/28/2012 Appointment: Aicha Thompson WPtel: [facility] [place] Injection 09/26/2012 Patient Education: Patient Medication Summary Completed 09/26/2012 Appointment: Aicha Thompson WPtel: [facility] [place] Injection 09/12/2012 Patient Education: Patient Medication Summary Completed 09/12/2012 Appointment: Aicha Thompson [facility]Ptel: [phone] [facility] [place] Injection 08/11/2012 Patient Education: Patient Medication [...] management sparingly. 07/13/2012 Appointment: Aicha Thompson WPtel: [address] [place], [place] [id number] Other 07/13/2012 Patient Education: Patient Medication Summary [...] in medications 05/26/2012 Appointment: Valentina Smith WPtel: [address] [place], [place] [phone] Other 05/26/2012 Patient Education: Patient Medication Summary Completed 05/26/2012 Appointment: Valentina Smith WPtel: [address] [place], [place] [phone] Sick 03/15/2012 Appointment: Svetlana Thompsony [facility]Ptel: [phone] [facility] Injection 03/02/2012 Patient Education: Patient Medication Summary [...] not controlled with the medication. 02/15/2012 Appointment: Valentnia Smith WPtel: [phone] [id number] Other 02/15/2012 Patient Education: Patient Medication Summary [...] to medications 01/13/2012 Appointment: Valentina Smith WPtel: [phone] Other 01/13/2012 Patient Education: Patient Medication Summary Completed 01/13/2012 Appointment: Valentina Smith WPtel: [phone] [phone] Other 01/06/2012 Visit Plan: Asthma - chest xray and symbicort sample today. Patellofemoral syndrome- recommended physical therapy. Costochondritis - recommended pt to use antiinflammatories as able for treatment of rib/sternum irritation and for pt to call if her symptoms do not improve. 12/21/2011 Appointment: Aicha Thompson WPtel: [phone] [facility] Other 12/21/2011 Patient Education: Patient Medication Summary [...] the office. 10/02/2011 Appointment: Valentina Smith WPtel: [phone] Other 10/02/2011 Patient Education: Patient Medication Summary Completed 10/02/2011 Visit Plan: Pain in joints-arms, elbows-recent fall- discussed natural and expected course of this diagnosis and to alert me if symptoms do not follow expected course, or if any worse. Patient verbalized understanding. Neck vbla-qlacidz-kyheaxofd physical therapy-patient declined at this time-going to see the certified detention deputy this afternoon. B12 deficiency-B12 injection today in the office. 09/01/2011 Appointment: Valentina Smith WPtel: [phone] [phone] Other 09/01/2011 Patient Education: Patient Medication Summary [...] management sparingly. 08/03/2011 Appointment: Aicha Thompson WPtel: [facility]5 [facility] Follow up 08/03/2011 Patient Education: Patient [...] HER PAIN. 06/29/2011 Appointment: Aicha Thompson WPtel: [facility] Follow up 06/29/2011 Patient Education: Patient Medication Summary Completed 06/29/2011 Appointment: Aicha Thompson WPtel: [phone] [facility] Other 06/24/2011 Visit Plan: Right knee pain, bilateral wrist pain-recent fall-discussed natural and expected course of this diagnosis and to alert me if symptoms do not follow expected course, or if any worse. Patient verbalized understanding. Recommend follow up with Ortho physician if pain persists. 06/22/2011 Appointment: Valentina Smith [facility]el: [phone] [place] Other 06/22/2011 Patient Education: Patient Medication Summary Completed 06/22/2011 Visit Plan: Knee and Ankle pain and instability- recommend re-evaluation by an digital strategy specialist at [facility] the [address] [place] [address]. Pt has been recommended to go back to Dr. Corbin at [facility] the [address] [place] [address] as my office did not get a [...] fibromyalgia. 06/11/2011 Appointment: Aicha Thompson WPtel: [phone] [facility] [place] Injection 06/11/2011 Appointment: Aicha Thompson WPtel: [phone] [facility] [place] Other 06/11/2011 Patient Education: Patient Medication Summary Completed 06/11/2011 Visit Plan: Knee and Ankle pain and instability- recommend evaluation by an digital strategy specialist at [facility] the [facility]. The pt has been previously referred [...] physical appearance. 03/11/2011 Appointment: Aicha Thompson WPtel: [facility]5 [facility] Other 03/11/2011 Patient Education: Patient Medication Summary Completed 03/11/2011 Patient Education: .Amazing charts Diabetic meal planning guide Completed 03/11 Appointment: Aicha Thompson WPtel: [facility] [place] Injection 02/23/2011 Patient Education: Patient Medication Summary Completed 02/23/2011 Visit Plan: iliotibial band syndrome - continue with current treatment per certified detention deputy. I have recommend use of biofreeze to the right outer leg. I have given pt stretching exercises for home. Fibromyalgia - chronic - continue with exercise, heat, and prn pain medication. Knee pain - apparently resolved prior to her appointment today. No change in present management, call if pain returns. 02/12/2011 Appointment: Aicha Thompson WPtel: [facility] Other 02/12/2011 Patient Education: Patient Medication [...] appt with Dr Ibarra . Ulcer left okxr-rgyghark-a/u in 10 days . Hemorrhoidal skin tag-no acute inflammation today -may use hemorrhoid cream as directed as needed-call with any concerns, bleeding, etc. sleep study -[facility] . Headaches-patient is not wearing her CPAP and i suspect this may be contributing to her headaches-will contact [facility] for a new sleep study Neck pain -spinal stenosis -[facility] has attempted to contact patient with no response from Mary-I have instructed her to call them and get appt scheduled Dr Saunders -[facility] . Bilateral foot and ankle [...] legs - [facility] in [place], [place]- fax # [phone] pt has been seen by perinatal specialist - need brace because of bilateral [...] the instructions given to her from her steel worker and she is to call him if her constipation is uncontrolled. Hemorrhoids-use suppositories as directed. . Anxiety-fairly well controlled-does have added stress with family-no change in medications-call if symptoms worsen Neck pain-recommend rest, ice and anti inflammatories as directed-call if symptoms do not resolve or if any worse. Patient verbalized understanding of plan. . iliotibial band syndrome - continue with current treatment per certified detention deputy. I have recommend use of biofreeze to [...] and instability- recommend re- evaluation by an digital strategy specialist at [facility] the [address] [place] [address]. Pt has been recommended to go back to Dr. Corbin at [facility] the [address] [place] [address] as my office did not get a [...] savella for treatment of fibromyalgia. REFER TO [facility] FOR PODIATRY EVALUATION DX BILATERAL FOOT AND ANKLE PAIN . Bilateral foot pain-foot drop-patient getting AFOs-refer to podiatry for evaluation-wants to see someone in [place] [facility] NECK AND BRAIN Call [facility] [...] the list of the neurologists that her steam shovel runner has recommended and we would consider a [...] the list of the neurologists that her steam shovel runner has recommended and we would consider a [...] if any worse. Patient verbalized understanding. Neck hpvh-wonozal-mymepueav physical therapy-patient declined at this time- going to see the certified detention deputy this afternoon. B12 deficiency-B12 injection today in [...] today in the office. . Ulcer of mmhs-jvkqkqf-xwuuo instructions provided today and instructed patient to return as directed-keep wound clean and dry. Hemorrhoids-refill anusol suppositories and use as directed B12 deficiency-b12 injection today in the office Jbjiuszdk-krodxafqmyuo-ravpyyo injection today in the office-continue oral medications [...] wear her CPAP the past few days. Mnpgzzg-byvakax-eyfujptwf patient continue taper of medication as discussed with Dr Thompson -continue counseling . Generalized abd vozx-MVM-hpdgmb cipro/flagyl-culture urine-recommend patient follow up with Dr Grace for an appt if abdominal pain does not improve Low potassium-check labs . Generalized abd nsjo-KGA-bmzejn cipro/flagyl-culture urine-recommend patient follow up with Dr [...] for acute changes B12 injection . Neck cjrz-snljnic-vbhtxbv to continue f/u with [facility]-her symptoms have [...] regimen-no changes in medications Dr. Ramey - [facility] . Hypertension - well controlled - continue [...] pain and instability- recommend evaluation by an digital strategy specialist at [facility] [...] (may be called three old goats) at [employer] and home. . Hypertension - well controlled [...]
--- OUTSIDE RECORDS SUMMARY | 2018-08-03 06:28 | XMS REPORT | CCD ---
Author Author [facility]a Thompson Organization [facility] Address [address] [place] [address] Phone Care Team Providers Care [employer] Name Role Phone PP Unavailable CCM Unavailable Summary Purpose Interface Exchange Insurance Providers Payer name Policy type / Coverage type Covered green party ID Effective Begin Date Effective End Date WPS Medicare Part B Medicare Part B [id number] 2013 Unknown [facility] Medicare Part B [id number] 2013 Unknown Family history Grandmother Diagnosis Age [...] status Unknown 01/29/[address]: 815094125 Never smoker 01/29/[address]: 262636 Currently drinks alcohol mixed drink before bed [...] Codes Condition Status Onset Date Resolved Date Acute upper respiratory infection, unspecified ICD-9: 465.9 ICD-10: J06.9 Active 06/16/2018 Unknown Generalized anxiety disorder ICD-9: 300.02 ICD-10: F41.1 Active 06/16/2018 Unknown Chronic pain syndrome ICD-9: 338.4 ICD-10: G89.4 Active 03/04/2016 Unknown Essential (primary) hypertension ICD-9: 401.1 ICD-10: I10 Active 06/25/2016 Unknown Essential (primary) hypertension ICD-9: 401.9 ICD-10: I10 Active 02/12/2016 Unknown Low back pain ICD-9: 724.2 ICD-10: M54.5 Active 07/07/2016 Unknown Vitamin B12 deficiency anemia due to intrinsic factor deficiency ICD-9: 281.0 ICD-10: D51.0 Active 04/19/2016 Unknown Major depressive disorder, recurrent, mild ICD-9: 296.31 ICD-10: F33.0 Active 11/25/2017 Unknown Cervicalgia ICD-9: 723.1 ICD-10: M54.2 Active [...] ICD-9: 266.2 ICD-10: D51.9 Active 07/03/2016 Unknown Vitamin D deficiency, unspecified ICD-9: 268.9 ICD-10: E55.9 Active 02/12/2016 Unknown Laceration without foreign body of scalp, [...] ICD-9: 281.1 ICD-10: D51.1 Active 02/12/2016 Unknown Encounter for screening mammogram [...] sleep apnea Unknown Active 05/14/2011 Unknown 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/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 Unknown Overweight (BMI [...] Problems Condition Codes Effective Dates Condition Status Acute upper respiratory infection, unspecified ICD-9: 465.9 ICD-10: J06.9 06/16/2018 Active Generalized anxiety disorder ICD-9: 300.02 ICD-10: F41.1 06/16/2018 Active Chronic pain syndrome ICD-9: 338.4 ICD-10: G89.4 03/04/2016 Active Essential (primary) hypertension ICD-9: 401.1 ICD-10: I10 06/25/2016 Active Essential (primary) hypertension ICD-9: 401.9 ICD-10: I10 02/12/2016 Active Low back pain ICD-9: 724.2 ICD-10: M54.5 07/07/2016 Active Vitamin B12 deficiency anemia due to intrinsic factor deficiency ICD-9: 281.0 ICD-10: D51.0 04/19/2016 Active Major depressive disorder, recurrent, mild ICD-9: 296.31 ICD-10: F33.0 11/25/2017 Active Cervicalgia ICD-9: 723.1 ICD-10: M54.2 05/06/2016 [...] unspecified ICD-9: 266.2 ICD-10: D51.9 07/03/2016 Active Vitamin D deficiency, unspecified ICD-9: 268.9 ICD-10: E55.9 02/12/2016 Active Laceration without foreign body of scalp, [...] proteinuria ICD-9: 281.1 ICD-10: D51.1 02/12/2016 Active Encounter for screening mammogram for [...] Active sleep apnea Unknown 05/14/2011 Active 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 03/11/2011 Active Overweight (BMI 25.0-29.9) [...] Fill Instructions tramadol 50 mg tablet RxNorm: 664650 1-2 Tablet(s) PO TID as needed 06/27/2018 08/25/2018 Active Claritin-D 12 Hour 5 mg-120 mg tablet,extended release RxNorm: 1134157 Tablet(s) as needed TAKE 1 TABLET BY MOUTH TWICE DAILY NEEDED 201808/13/2018 Active diazepam 5 mg tablet RxNorm: 044759 2 Tablet(s) (10 mg) PO QAM and 1 Tablet (5 mg ) PO QHS 06/15/2018 07/05/2018 Inactive Lipitor 20 mg tablet RxNorm: 158179 1 TABLET(S) PO DAILY 201705/12/2019 Active TAKE ONE TABLET BY MOUTH EVERY NIGHT AT BEDTIME tramadol 50 mg tablet RxNorm: 106674 1-2 Tablet(s) PO TID as needed 04/20/2018 06/17/2018 Inactive Valium 10 mg tablet RxNorm: 119736 1 Tablet(s) daily as needed 04/18/2018 05/31/2018 Inactive hydrocodone 10 mg-acetaminophen 325 mg tablet RxNorm: 027540 1 tab bid x 1 week then daily x 2 weeks then stop Tablet(s) PO Q6 for pain 04/1805/10/2018 Inactive diazepam 10 mg tablet RxNorm: 448335 1 Tablet(s) BID 04/18/2018 06/14/2018 Inactive Claritin-D 12 Hour 5 mg-120 mg tablet,extended release RxNorm: 3519685 Tablet(s) as needed TAKE 1 TABLET BY MOUTH TWICE DAILY NEEDED 201706/11/2018 Inactive tramadol 50 mg tablet RxNorm: 712690 1-2 Tablet(s) PO TID as needed 03/10/2018 04/07/2018 Inactive cyanocobalamin (vit B-12) 1,000 mcg/mL injection solution RxNorm: 317907 1 Milliliter(s) Inj 03/10/2018 03/10/2018 Inactive Seroquel 100 mg tablet RxNorm: 708296 1 TABLET(S) PO BID 201703/01/2019 Active TAKE 1 TABLET BY MOUTH TWICE DAILY hydrocodone 10 mg-acetaminophen 325 mg tablet RxNorm: 355298 1-2 Tablet(s) PO Q6 as needed for pain 02/21/2018 03/09/2018 Inactive Ventolin HFA 90 mcg/actuation aerosol inhaler RxNorm: 553127 1 OR 2 PUFF(S) INH Q6 PRN NEEDED 01/13/2018 07/11/2018 Active trazodone 100 mg tablet RxNorm: 763794 TABLET(S) TAKE 2 TABLETS BY MOUTH EVERY NIGHT AT BEDTIME 12/07/2017 09/02/2018 Active hydrocodone 10 mg-acetaminophen 325 mg tablet RxNorm: 911171 1-2 Tablet(s) PO Q6 as needed for pain 12/03/2017 12/25/2017 Inactive Ventolin HFA 90 mcg/actuation aerosol inhaler RxNorm: 878593 1 OR 2 PUFF(S) INH Q6 PRN NEEDED 11/26/2017 01/12/2018 Inactive Savella 100 mg tablet RxNorm: 852006 TABLET(S) PO TAKE 1 TABLET BY MOUTH DAILY 11/23/2017 No Stop Date Active Effexor XR 150 mg capsule,extended release RxNorm: 836065 1 CAPSULE(S) PO BID 1 CAPSULE(S) PO BID 11/23/2017 04/21/2018 Inactive TAKE 1 CAPSULE BY MOUTH TWICE DAILY diazepam 10 mg tablet RxNorm: 266507 Tablet(s) TAKE 1 TABLET BY MOUTH FOUR TIMES DAILY NEEDED 11/23/2017 03/09/2018 Inactive Claritin-D 12 Hour 5 mg-120 mg tablet,extended release RxNorm: 0937824 Tablet(s) as needed TAKE 1 TABLET BY MOUTH TWICE DAILY NEEDED 201706/14/2018 Inactive Valium 10 mg tablet RxNorm: 419534 1 Tablet(s) QID as needed 11/16/2017 01/14/2018 Inactive metoprolol tartrate 25 mg tablet RxNorm: 628093 TABLET(S) TABLET(S) 1/2 TABLET(S) PO BID TAKE 1/2 TABLET BY MOUTH TWICE DAILY 11/12/2017 No Stop Date Active pantoprazole 40 mg tablet,delayed release RxNorm: 680024 TAKE 1 TABLET BY MOUTH EVERY DAY 11/12/2017 05/10/2018 Inactive betamethasone dipropionate 0.05 % topical cream RxNorm: 137803 1 APPLICATION TOP BID 10/22/2017 11/04/2017 Inactive tramadol 50 mg tablet RxNorm: 941282 1-2 Tablet(s) PO TID as needed 10/20/2017 01/16/2018 Inactive prednisone 10 mg tablets in a dose pack RxNorm: 472400 1 Tablet(s) PO UD 10/19/2017 10/24/2017 Inactive 6-5-4-3-2-1 cyanocobalamin (vit B-12) 1,000 mcg/mL injection solution RxNorm: 231321 1 Milliliter(s) Inj 10/19/2017 10/19/2017 Inactive betamethasone dipropionate 0.05 % topical cream RxNorm: 152691 1 Application TOP BID 10/19/2017 10/21/2017 Inactive hydrocodone 10 mg-acetaminophen 325 mg tablet RxNorm: 525560 1-2 Tablet(s) PO Q6 as needed for pain 10/19/2017 11/10/2017 Inactive Effexor XR 150 mg capsule,extended release RxNorm: 309109 1 Capsule(s) PO BID 1 CAPSULE(S) PO BID 10/19/2017 11/22/2017 Inactive TAKE 1 CAPSULE BY MOUTH TWICE DAILY prednisone 5 mg tablet RxNorm: 290344 1 Tablet(s) PO UD 2017 No Stop Date Active Cipro 500 mg tablet RxNorm: 028159 1 Tablet(s) PO BID 201709/26/2017 Inactive Flagyl 500 mg tablet RxNorm: 669559 1 Tablet(s) PO TID 201709/26/2017 Inactive prednisone 10 mg tablet RxNorm: 914440 1 Tablet(s) PO UD 201709/16/2017 Inactive 2 tabs daily x 3 days 1 tab daily x 3 daily then resume usual 5mg daily hydrocodone 10 mg-acetaminophen 325 mg tablet RxNorm: 373752 1-2 Tablet(s) PO Q6 as needed for pain 09/10/2017 10/02/2017 Inactive Savella 100 mg tablet RxNorm: 946762 TABLET(S) PO TAKE 1 TABLET BY MOUTH DAILY 08/31/2017 No Stop Date Active cyanocobalamin (vit B-12) 1,000 mcg/mL injection solution RxNorm: 062047 1 Milliliter(s) Inj 08/19/2017 08/19/2017 Inactive pantoprazole 40 mg tablet,delayed release RxNorm: 740953 TAKE 1 TABLET BY MOUTH EVERY DAY 08/17/2017 11/11/2017 Inactive trazodone 100 mg tablet RxNorm: 636394 TABLET(S) TAKE 2 TABLETS BY MOUTH EVERY NIGHT AT BEDTIME 08/17/2017 12/06/2017 Inactive Ventolin HFA 90 mcg/actuation aerosol inhaler RxNorm: 866517 1 OR 2 PUFF(S) INH Q6 PRN NEEDED 08/11/2017 01/07/2018 Inactive Advair Diskus 250 mcg-50 mcg/dose powder for inhalation RxNorm: 1700967 1 Puff(s) INH BID 08/11/2017 12/08/2017 Inactive Advair Diskus 250 mcg-50 mcg/dose powder for inhalation RxNorm: 2207861 1 PUFF(S) INH BID 08/11/2017 11/08/2017 Inactive Ventolin HFA 90 mcg/actuation aerosol inhaler RxNorm: 464653 1 OR 2 PUFF(S) INH Q6 PRN NEEDED 08/11/2017 11/25/2017 Inactive hydrocodone 10 mg-acetaminophen 325 mg tablet RxNorm: 168188 1-2 Tablet(s) PO Q6 as needed for pain 08/03/2017 08/25/2017 Inactive tramadol 50 mg tablet RxNorm: 877934 1-2 Tablet(s) PO TID as needed 07/26/2017 04/19/2018 Inactive Valium 10 mg tablet RxNorm: 897122 1 Tablet(s) QID as needed 07/09/2017 09/06/2017 Inactive Effexor XR 150 mg capsule,extended release RxNorm: 248361 Capsule(s) 1 CAPSULE(S) PO BID 07/07/2017 10/18/2017 Inactive TAKE 1 CAPSULE BY MOUTH TWICE DAILY metoprolol tartrate 25 mg tablet RxNorm: 078291 Tablet(s) TABLET(S) 1/2 TABLET(S) PO BID TAKE 1/2 TABLET BY MOUTH TWICE DAILY 07/07/2017 11/11/2017 Inactive diazepam 10 mg tablet RxNorm: 911331 Tablet(s) TAKE 1 TABLET BY MOUTH FOUR TIMES DAILY NEEDED 07/07/2017 08/02/2017 Inactive cyanocobalamin (vit B-12) 1,000 mcg/mL injection solution RxNorm: 613003 1 Milliliter(s) Inj 07/06/2017 07/06/2017 Inactive tramadol 50 mg tablet RxNorm: 611370 1-2 Tablet(s) PO TID as needed 06/21/2017 09/17/2017 Inactive hydrocodone 10 mg-acetaminophen 325 mg tablet RxNorm: 977998 1-2 Tablet(s) PO Q6 as needed for pain 06/17/2017 07/09/2017 Inactive cyclobenzaprine 10 mg tablet RxNorm: 398255 TAKE 1 TABLET BY MOUTH THREE TIMES DAILY NEEDED FOR MUSCLE SPASMS 06/08/2017 08/31/2018 Active Claritin-D 12 Hour 5 mg-120 mg tablet,extended release RxNorm: 9772352 Tablet(s) as needed TAKE 1 TABLET BY MOUTH TWICE DAILY NEEDED 201709/04/2017 Inactive Lipitor 20 mg tablet RxNorm: 031679 1 TABLET(S) PO DAILY 201705/17/2018 Inactive TAKE ONE TABLET BY MOUTH EVERY NIGHT AT BEDTIME trazodone 100 mg tablet RxNorm: 010805 TABLET(S) TAKE 2 TABLETS BY MOUTH EVERY NIGHT AT BEDTIME 05/17/2017 08/14/2017 Inactive cyclobenzaprine 5 mg tablet RxNorm: 354440 Tablet(s) PO TAKE 1 TABLET BY MOUTH THREE TIMES DAILY NEEDED FOR MUSCLE SPASMS (New dose has not been sent to pharmacy) 05/11/2017 No Stop Date Active Valium 5 mg tablet RxNorm: 662349 1 Tablet(s) PO QID as needed (New dose has not been sent to pharmacy) 05/11/2017 Inactive diazepam 10 mg tablet RxNorm: 909405 TAKE 1 TABLET BY MOUTH FOUR TIMES DAILY NEEDED 04/28/2017 05/27/2017 Inactive hydrocodone 10 mg-acetaminophen 325 mg tablet RxNorm: 255824 1-2 Tablet(s) PO Q6 as needed for pain 04/27/2017 05/19/2017 Inactive cyanocobalamin (vit B-12) 1,000 mcg/mL injection solution RxNorm: 754726 1 Milliliter(s) Inj 04/27/2017 04/27/2017 Inactive hydrocodone 10 mg-acetaminophen 325 mg tablet RxNorm: 181456 1-2 Tablet(s) PO Q6 as needed for pain 03/17/2017 04/08/2017 Inactive Seroquel 100 mg tablet RxNorm: 923612 1 TABLET(S) PO BID 201603/06/2018 Inactive TAKE 1 TABLET BY MOUTH TWICE DAILY Valium 10 mg tablet RxNorm: 302711 1 Tablet(s) QID as needed 03/05/2017 05/03/2017 Inactive Claritin-D 12 Hour 5 mg-120 mg tablet,extended release RxNorm: 3312410 Tablet(s) as needed TAKE 1 TABLET BY MOUTH TWICE DAILY NEEDED 201604/13/2018 Inactive pantoprazole 40 mg tablet,delayed release RxNorm: 772477 TAKE 1 TABLET BY MOUTH EVERY DAY 02/26/2017 08/16/2017 Inactive tramadol 50 mg tablet RxNorm: 650286 1-2 Tablet(s) PO TID as needed 02/17/2017 05/17/2017 Inactive hydrocodone 10 mg-acetaminophen 325 mg tablet RxNorm: 718093 1-2 Tablet(s) PO Q6 as needed for pain 02/17/2017 03/11/2017 Inactive Valium 10 mg tablet RxNorm: 595494 1 Tablet(s) QID as needed 02/02/2017 03/03/2017 Inactive (Response to an electronic controlled substance refill request - RxReferenceNumber: [id number]|1|0|1) nystatin 100,000 unit/gram topical powder RxNorm: 972020 1 APPLICATION TOP QID UNTIL HEALED 01/21/2017 No Stop Date Active Advair Diskus 250 mcg-50 mcg/dose powder for inhalation RxNorm: 4788484 1 Puff(s) INH BID 01/21/2017 05/20/2017 Inactive hydrocodone 10 mg-acetaminophen 325 mg tablet RxNorm: 418899 1-2 Tablet(s) PO Q6 as needed for pain 01/21/2017 02/11/2017 Inactive metoprolol tartrate 25 mg tablet RxNorm: 374309 TABLET(S) 1/2 TABLET(S) PO BID TAKE 1/2 TABLET BY MOUTH TWICE DAILY 01/18/2017 07/06/2017 Inactive Effexor XR 150 mg capsule,extended release RxNorm: 540533 1 CAPSULE(S) PO BID 01/11/2017 07/06/2017 Inactive TAKE 1 CAPSULE BY MOUTH TWICE DAILY Effexor XR 150 mg capsule,extended release RxNorm: 562087 1 Capsule(s) PO BID 1 CAPSULE(S) PO BID 01/08/2017 07/06/2017 Inactive TAKE 1 CAPSULE BY MOUTH TWICE DAILY nystatin 100,000 unit/gram topical powder RxNorm: 432780 1 APPLICATION TOP QID UNTIL HEALED 12/17/2016 01/20/2017 Inactive hydrocodone 10 mg-acetaminophen 325 mg tablet RxNorm: 196173 1-2 Tablet(s) PO Q6 as needed for pain 12/17/2016 01/07/2017 Inactive Claritin-D 12 Hour 5 mg-120 mg tablet,extended release RxNorm: 4484931 Tablet(s) as needed TAKE 1 TABLET BY MOUTH TWICE DAILY NEEDED 201602/12/2017 Inactive Lipitor 20 mg tablet RxNorm: 808149 1 TABLET(S) PO DAILY 201606/07/2017 Inactive TAKE ONE TABLET BY MOUTH EVERY NIGHT AT BEDTIME Advair Diskus 250 mcg-50 mcg/dose powder for inhalation RxNorm: 6936240 1 Puff(s) INH BID 11/26/2016 01/20/2017 Inactive Valium 10 mg tablet RxNorm: 907208 1 Tablet(s) QID as needed 11/24/2016 01/22/2017 Inactive (Response to an electronic controlled substance refill request - RxReferenceNumber: [id number]|1|0|1) cyanocobalamin (vit B-12) 1,000 mcg/mL injection solution RxNorm: 108637 1 Milliliter(s) Inj 11/17/2016 11/17/2016 Inactive tramadol 50 mg tablet RxNorm: 817844 1-2 Tablet(s) PO TID as needed 11/06/2016 10/19/2017 Inactive hydrocodone 10 mg-acetaminophen 325 mg tablet RxNorm: 955663 1-2 Tablet(s) PO Q6 as needed for pain 11/06/2016 11/27/2016 Inactive nystatin 100,000 unit/gram topical powder RxNorm: 173823 1 Application TOP QID until healed 10/27/2016 12/16/2016 Inactive cyanocobalamin (vit B-12) 1,000 mcg/mL injection solution RxNorm: 807023 1 Milliliter(s) Inj 10/12/2016 10/12/2016 Inactive trazodone 100 mg tablet RxNorm: 055421 Tablet(s) TAKE 2 TABLETS BY MOUTH EVERY NIGHT AT BEDTIME 09/24/2016 03/22/2017 Inactive Valium 10 mg tablet RxNorm: 416641 1 Tablet(s) QID as needed 09/24/2016 11/22/2016 Inactive (Response to an electronic controlled substance refill request - RxReferenceNumber: [id number]|1|0|1) Savella 100 mg tablet RxNorm: 703117 TABLET(S) PO TAKE 1 TABLET BY MOUTH DAILY 09/18/2016 08/30/2017 Inactive pantoprazole 40 mg tablet,delayed release RxNorm: 904111 TAKE 1 TABLET BY MOUTH EVERY DAY 09/18/2016 02/25/2017 Inactive cyanocobalamin (vit B-12) 1,000 mcg/mL injection solution RxNorm: 595570 1 Milliliter(s) Inj 09/11/2016 09/11/2016 Inactive hydrocodone 10 mg-acetaminophen 325 mg tablet RxNorm: 821537 1-2 Tablet(s) PO Q6 as needed for pain 08/24/2016 11/05/2016 Inactive (Response to an electronic controlled substance refill request - RxReferenceNumber: [id number]|1|0|1) Claritin-D 12 Hour 5 mg-120 mg tablet,extended release RxNorm: 4068130 Tablet(s) TAKE 1 TABLET BY MOUTH TWICE DAILY NEEDED 08/13/2016 04/13/2018 Inactive tramadol 50 mg tablet RxNorm: 278897 1-2 Tablet(s) PO TID PRN as needed 08/11/2016 11/05/2016 Inactive metoprolol tartrate 25 mg tablet RxNorm: 568670 TABLET(S) 1/2 TABLET(S) PO BID TAKE 1/2 TABLET BY MOUTH TWICE DAILY 08/10/2016 01/17/2017 Inactive pantoprazole 40 mg tablet,delayed release RxNorm: 865657 TAKE 1 TABLET BY MOUTH EVERY DAY 08/10/2016 11/05/2016 Inactive Savella 100 mg tablet RxNorm: 086542 TABLET(S) PO TAKE 1 TABLET BY MOUTH DAILY 08/10/2016 11/05/2016 Inactive Ventolin HFA 90 mcg/actuation aerosol inhaler RxNorm: 278290 1 OR 2 PUFF(S) INH Q6 PRN NEEDED 08/07/2016 02/02/2017 Inactive Diflucan 150 mg tablet RxNorm: 954998 1 Tablet(s) PO daily 08/201608/13/2016 Inactive nystatin 100,000 unit/mL oral suspension RxNorm: 040877 5 Milliliter(s) PO QID 08/07/2016 08/16/2016 Inactive hydrocodone 10 mg-acetaminophen 325 mg tablet RxNorm: 095191 1-2 Tablet(s) PO Q6 as needed for pain 08/04/2016 08/23/2016 Inactive (Response to an electronic controlled substance refill request - RxReferenceNumber: [id number]|1|0|1) Valium 10 mg tablet RxNorm: 748529 1 Tablet(s) QID as needed 07/20/2016 09/17/2016 Inactive (Response to an electronic controlled substance refill request - RxReferenceNumber: [id number]|1|0|1) tramadol 50 mg tablet RxNorm: 094416 1-2 Tablet(s) PO TID PRN as needed 07/15/2016 11/05/2016 Inactive ok to give 1 month xtpeev=609 tablets cyanocobalamin (vit B-12) 1,000 mcg/mL injection solution RxNorm: 373993 Milliliter(s) Inj 07/03/2016 07/03/2016 Inactive Seroquel 100 mg tablet RxNorm: 548595 1 TABLET(S) PO BID 201603/15/2017 Inactive TAKE 1 TABLET BY MOUTH TWICE DAILY hydrocodone 10 mg-acetaminophen 325 mg tablet RxNorm: 136897 1-2 Tablet(s) PO Q6 as needed for pain 06/26/2016 08/03/2016 Inactive (Response to an electronic controlled substance refill request - RxReferenceNumber: [id number]|1|0|1) Valium 10 mg tablet RxNorm: 766246 1 Tablet(s) QID as needed 05/11/2016 07/09/2016 Inactive (Response to an electronic controlled substance refill request - RxReferenceNumber: [id number]|1|0|1) tramadol 50 mg tablet RxNorm: 171626 1-2 Tablet(s) PO TID PRN as needed 05/11/2016 07/08/2016 Inactive ok to give 1 month qbtvmj=742 tablets cyclobenzaprine 10 mg tablet RxNorm: 273438 TAKE 1 TABLET BY MOUTH THREE TIMES DAILY NEEDED FOR MUSCLE SPASMS 05/11/2016 05/10/2017 Inactive hydrocodone 10 mg-acetaminophen 325 mg tablet RxNorm: 783065 1-2 Tablet(s) PO Q6 as needed for pain 05/06/2016 06/25/2016 Inactive (Response to an electronic controlled substance refill request - RxReferenceNumber: [id number]|1|0|1) cyanocobalamin (vit B-12) 1,000 mcg/mL injection solution RxNorm: 344862 1 Milliliter(s) Inj 04/20/2016 04/20/2016 Inactive hydrocodone 10 mg-acetaminophen 325 mg tablet RxNorm: 999605 1-2 Tablet(s) PO Q6 as needed for pain 04/03/2016 05/05/2016 Inactive (Response to an electronic controlled substance refill request - RxReferenceNumber: [id number]|1|0|1) pantoprazole 40 mg tablet,delayed release RxNorm: 266506 TAKE 1 TABLET BY MOUTH EVERY DAY 04/02/2016 08/09/2016 Inactive Claritin-D 12 Hour 5 mg-120 mg tablet,extended release RxNorm: 9399596 Tablet(s) TAKE 1 TABLET BY MOUTH TWICE DAILY NEEDED 04/02/2016 11/05/2016 Inactive hydrocodone 10 mg-acetaminophen 325 mg tablet RxNorm: 549054 1-2 Tablet(s) PO Q6 as needed for pain 03/12/2016 04/02/2016 Inactive (Response to an electronic controlled substance refill request - RxReferenceNumber: [id number]|1|0|1) Effexor XR 150 mg capsule,extended release RxNorm: 923309 1 CAPSULE(S) PO BID 03/05/2016 01/07/2017 Inactive TAKE 1 CAPSULE BY MOUTH TWICE DAILY Ventolin HFA 90 mcg/actuation aerosol inhaler RxNorm: 071247 1 OR 2 PUFF(S) INH Q6 PRN NEEDED 02/19/2016 08/06/2016 Inactive cyanocobalamin (vit B-12) 1,000 mcg/mL injection solution RxNorm: 886211 Milliliter(s) Inj 02/13/2016 02/13/2016 Inactive hydrocodone 10 mg-acetaminophen 325 mg tablet RxNorm: 789693 1-2 Tablet(s) PO Q6 as needed for pain 02/05/2016 03/11/2016 Inactive (Response to an electronic controlled substance refill request - RxReferenceNumber: [id number]|1|0|1) Valium 10 mg tablet RxNorm: 334536 1 Tablet(s) QID as needed 02/05/2016 05/04/2016 Inactive (Response to an electronic controlled substance refill request - RxReferenceNumber: [id number]|1|0|1) tramadol 50 mg tablet RxNorm: 049023 1-2 Tablet(s) PO TID PRN as needed 02/05/2016 11/05/2016 Inactive ok to give 1 month amqxhj=614 tablets hydrocodone 10 mg-acetaminophen 325 mg tablet RxNorm: 351248 1-2 Tablet(s) PO Q6 as needed for pain 01/08/2016 02/04/2016 Inactive (Response to an electronic controlled substance refill request - RxReferenceNumber: [id number]|1|0|1) metoprolol tartrate 25 mg tablet RxNorm: 804009 Tablet(s) 1/2 TABLET(S) PO BID TAKE 1/2 TABLET BY MOUTH TWICE DAILY 01/08/2016 08/09/2016 Inactive Symbicort 160 mcg-4.5 mcg/actuation HFA aerosol inhaler RxNorm: 4353919 2 INH BID 01/03/2016 11/25/2016 Inactive Symbicort 160 mcg-4.5 mcg/actuation HFA aerosol inhaler RxNorm: 6489130 1 INH daily 01/03/2016 01/02/2016 Inactive Lipitor 20 mg tablet RxNorm: 745825 1 TABLET(S) PO DAILY 201506/26/2016 Inactive TAKE ONE TABLET BY MOUTH EVERY NIGHT AT BEDTIME trazodone 100 mg tablet RxNorm: 667336 TAKE 2 TABLETS BY MOUTH EVERY NIGHT AT BEDTIME 12/30/2015 09/23/2016 Inactive Savella 100 mg tablet RxNorm: 440765 TABLET(S) PO TAKE 1 TABLET BY MOUTH DAILY 12/30/2015 08/09/2016 Inactive hydrocodone 10 mg-acetaminophen 325 mg tablet RxNorm: 644997 1-2 Tablet(s) PO Q6 as needed for pain 12/12/2015 01/07/2016 Inactive (Response to an electronic controlled substance refill request - RxReferenceNumber: [id number]|1|0|1) cyanocobalamin (vit B-12) 1,000 mcg/mL injection solution RxNorm: 478099 1 Milliliter(s) Inj 12/02/2015 12/02/2015 Inactive hydrocodone 10 mg-acetaminophen 325 mg tablet RxNorm: 744097 1-2 Tablet(s) PO Q6 as needed for pain 12/02/2015 12/11/2015 Inactive (Response to an electronic controlled substance refill request - RxReferenceNumber: [id number]|1|0|1) Claritin-D 12 Hour 5 mg-120 mg tablet,extended release RxNorm: 5386908 Tablet(s) TAKE 1 TABLET BY MOUTH TWICE DAILY 11/11/2015 11/10/2015 Inactive Claritin-D 12 Hour 5 mg-120 mg tablet,extended release RxNorm: 1432675 Tablet(s) TAKE 1 TABLET BY MOUTH TWICE DAILY NEEDED 11/11/2015 01/06/2016 Inactive tramadol 50 mg tablet RxNorm: 896994 1-2 Tablet(s) PO TID PRN as needed 11/05/2015 11/05/2016 Inactive ok to give 1 month vxvqgg=595 tablets Valium 10 mg tablet RxNorm: 355396 1 Tablet(s) QID as needed 11/05/2015 02/02/2016 Inactive (Response to an electronic controlled substance refill request - RxReferenceNumber: [id number]|1|0|1) cyanocobalamin (vit B-12) 1,000 mcg/mL injection solution RxNorm: 220702 1 Milliliter(s) Inj 10/29/2015 10/29/2015 Inactive hydrocodone 10 mg-acetaminophen 325 mg tablet RxNorm: 016554 1-2 Tablet(s) PO Q6 as needed for pain 10/28/2015 12/01/2015 Inactive (Response to an electronic controlled substance refill request - RxReferenceNumber: [id number]|1|0|1) pantoprazole 40 mg tablet,delayed release RxNorm: 394456 TAKE 1 TABLET BY MOUTH EVERY DAY 10/08/2015 04/01/2016 Inactive Seroquel 100 mg tablet RxNorm: 797138 1 TABLET(S) PO BID 201506/29/2016 Inactive TAKE 1 TABLET BY MOUTH TWICE DAILY trazodone 100 mg tablet RxNorm: 139441 TAKE 2 TABLETS BY MOUTH EVERY NIGHT AT BEDTIME 10/08/2015 10/01/2016 Inactive Lipitor 20 mg tablet RxNorm: 328048 1 TABLET(S) PO DAILY 201504/04/2016 Inactive TAKE ONE TABLET BY MOUTH EVERY NIGHT AT BEDTIME hydrocodone 10 mg-acetaminophen 325 mg tablet RxNorm: 461178 1-2 Tablet(s) PO Q6 as needed for pain 09/19/2015 10/18/2015 Inactive (Response to an electronic controlled substance refill request - RxReferenceNumber: [id number]|1|0|1) Valium 10 mg tablet RxNorm: 446682 1 Tablet(s) QID as needed 09/05/2015 11/03/2015 Inactive (Response to an electronic controlled substance refill request - RxReferenceNumber: [id number]|1|0|1) Savella 100 mg tablet RxNorm: 489111 Tablet(s) PO TAKE 1 TABLET BY MOUTH DAILY 07/19/2015 11/05/2016 Inactive Zithromax Z-Lauro 250 mg tablet RxNorm: 747698 1 Tablet(s) PO UD 07/12/2015 11/04/2015 Inactive z lauro hydrocodone 10 mg-acetaminophen 325 mg tablet RxNorm: 594294 1-2 Tablet(s) PO Q6 as needed for pain 07/10/2015 08/08/2015 Inactive (Response to an electronic controlled substance refill request - RxReferenceNumber: [id number]|1|0|1) tramadol 50 mg tablet RxNorm: 137525 1-2 Tablet(s) PO TID PRN as needed 07/04/2015 11/05/2016 Inactive ok to give 1 month flrivq=136 tablets hydrocodone 10 mg-acetaminophen 325 mg tablet RxNorm: 790683 1-2 Tablet(s) PO Q6 as needed for pain 06/10/2015 07/09/2015 Inactive (Response to an electronic controlled substance refill request - RxReferenceNumber: [id number]|1|0|1) cyanocobalamin (vit B-12) 1,000 mcg/mL injection solution RxNorm: 741575 Milliliter(s) Inj 06/10/2015 06/10/2015 Inactive pantoprazole 40 mg tablet,delayed release RxNorm: 778768 TABLET(S) PO TAKE 1 TABLET BY MOUTH EVERY DAY 06/10/201511/05 Inactive pantoprazole 40 mg tablet,delayed release RxNorm: 756867 Tablet(s) PO TAKE 1 TABLET BY MOUTH EVERY DAY 06/06/201511/05 Inactive tramadol 50 mg tablet RxNorm: 744833 1-2 Tablet(s) PO TID PRN as needed 05/29/2015 06/27/2015 Inactive ok to give 1 month llscra=604 tablets tramadol 50 mg tablet RxNorm: 852654 1-2 Tablet(s) PO Q6 as needed 05/29/2015 06/09/2015 Inactive Valium 10 mg tablet RxNorm: 596405 1 Tablet(s) QID as needed 05/08/2015 07/06/2015 Inactive (Response to an electronic controlled substance refill request - RxReferenceNumber: [id number]|1|0|1) cyclobenzaprine 10 mg tablet RxNorm: 271760 TAKE 1 TABLET BY MOUTH THREE TIMES DAILY NEEDED FOR MUSCLE SPASMS 05/08/2015 05/10/2016 Inactive Effexor XR 150 mg capsule,extended release RxNorm: 366193 1 Capsule(s) PO BID 1 CAPSULE(S) PO BID 05/08/2015 11/05/2016 Inactive TAKE 1 CAPSULE BY MOUTH TWICE DAILY hydrocodone 10 mg-acetaminophen 325 mg tablet RxNorm: 257604 1-2 Tablet(s) PO Q6 as needed for pain 05/08/2015 06/06/2015 Inactive (Response to an electronic controlled substance refill request - RxReferenceNumber: [id number]|1|0|1) metoprolol tartrate 25 mg tablet RxNorm: 408231 1/2 TABLET(S) PO BID TAKE 1/2 TABLET BY MOUTH TWICE DAILY 05/06/201507/2015 Inactive Claritin-D 12 Hour 5 mg-120 mg tablet,extended release RxNorm: 9328297 TAKE 1 TABLET BY MOUTH TWICE DAILY 04/16/201506/2016 Inactive hydrocodone 10 mg-acetaminophen 325 mg tablet RxNorm: 207886 1-2 Tablet(s) PO Q6 as needed for pain 04/15/2015 05/07/2015 Inactive (Response to an electronic controlled substance refill request - RxReferenceNumber: [id number]|1|0|1) pantoprazole 40 mg tablet,delayed release RxNorm: 269716 TABLET(S) PO TAKE 1 TABLET BY MOUTH EVERY DAY 04/08/201506/06 Inactive hydrocodone 10 mg-acetaminophen 325 mg tablet RxNorm: 301432 1 Tablet(s) PO Q4 PRN TAKE 1-2 TABLETS BY MOUTH EVERY 6 HOURS NEEDED FOR PAIN 03/14/2015 04/12/2015 Inactive (Response to an electronic controlled substance refill request - RxReferenceNumber: [id number]|1|0|1) diazepam 10 mg tablet RxNorm: 801961 1 Tablet(s) TID TAKE 1 TABLET BY MOUTH THREE TIMES DAILY NEEDED 02/08/20152016 Inactive (Response to an electronic controlled substance refill request - RxReferenceNumber: [id number]|1|0|1) Effexor XR 150 mg capsule,extended release RxNorm: 631570 1 CAPSULE(S) PO BID 02/07/2015 05/07/2015 Inactive TAKE 1 CAPSULE BY MOUTH TWICE DAILY cyclobenzaprine 10 mg tablet RxNorm: 534661 TAKE 1 TABLET BY MOUTH THREE TIMES DAILY NEEDED FOR MUSCLE SPASMS 02/07/2015 05/07/2015 Inactive pantoprazole 40 mg tablet,delayed release RxNorm: 844406 TABLET(S) PO TAKE 1 TABLET BY MOUTH EVERY DAY 02/07/201504/07 Inactive hydrocodone 10 mg-acetaminophen 325 mg tablet RxNorm: 211747 1 Tablet(s) PO Q4 PRN TAKE 1-2 TABLETS BY MOUTH EVERY 6 HOURS NEEDED FOR PAIN 01/25/2015 02/23/2015 Inactive (Response to an electronic controlled substance refill request - RxReferenceNumber: [id number]|1|0|1) Bactroban Nasal 2 % ointment RxNorm: 830349 1 Application NASAL BID 01/10/2015 01/10/2015 Inactive mupirocin 2 % topical ointment RxNorm: 107985 1 Application TOP TID 1 APPLICATION TOP PRN 01/10/2015 01/19/2015 Inactive disregard order for nasal ointment , use on left knee trazodone 100 mg tablet RxNorm: 765716 TAKE 2 TABLETS BY MOUTH EVERY NIGHT AT BEDTIME 01/08/2015 10/07/2015 Inactive Seroquel 100 mg tablet RxNorm: 160942 1 TABLET(S) PO BID 201410/04/2015 Inactive TAKE 1 TABLET BY MOUTH TWICE DAILY cyclobenzaprine 10 mg tablet RxNorm: 733326 TAKE 1 TABLET BY MOUTH THREE TIMES DAILY NEEDED FOR MUSCLE SPASMS 01/08/2015 02/06/2015 Inactive hydrocodone 10 mg-acetaminophen 325 mg tablet RxNorm: 574799 1 Tablet(s) PO Q4 PRN TAKE 1-2 TABLETS BY MOUTH EVERY 6 HOURS NEEDED FOR PAIN 12/21/2014 01/19/2015 Inactive (Response to an electronic controlled substance refill request - RxReferenceNumber: [id number]|1|0|1) pantoprazole 40 mg tablet,delayed release RxNorm: 098383 TABLET(S) PO TAKE 1 TABLET BY MOUTH EVERY DAY 12/13/201402/06 Inactive Lipitor 20 mg tablet RxNorm: 600800 1 Tablet(s) PO daily 201409/08/2015 Inactive TAKE ONE TABLET BY MOUTH EVERY NIGHT AT BEDTIME Valium 10 mg tablet RxNorm: 438162 1 Tablet(s) QID as needed 12/12/2014 02/09/2015 Inactive (Response to an electronic controlled substance refill request - RxReferenceNumber: [id number]|1|0|1) hydrocodone 10 mg-acetaminophen 325 mg tablet RxNorm: 331653 Tablet(s) TAKE 1-2 TABLETS BY MOUTH EVERY 6 HOURS NEEDED FOR PAIN 12/12/2014 12/20/2014 Inactive ( Response to an electronic controlled substance refill request - RxReferenceNumber: [id number]|1|0|1) Lipitor 20 mg tablet RxNorm: 747791 1 Tablet(s) PO daily 201412/12/2014 Inactive TAKE ONE TABLET BY MOUTH EVERY NIGHT AT BEDTIME pantoprazole 40 mg tablet,delayed release RxNorm: 930436 TABLET(S) PO TAKE 1 TABLET BY MOUTH EVERY DAY 12/06/201411/05 Inactive Savella 100 mg tablet RxNorm: 770937 Tablet(s) PO TAKE 1 TABLET BY MOUTH DAILY 12/06/2014 07/18/2015 Inactive Lipitor 20 mg tablet RxNorm: 450861 1 Tablet(s) PO daily 201412/10/2014 Inactive TAKE ONE TABLET BY MOUTH EVERY NIGHT AT BEDTIME Valium 10 mg tablet RxNorm: 831121 TAKE 1 TABLET BY MOUTH FOUR TIMES DAILY NEEDED FOR ANXIETY 12/06/2014 12/11/2014 Inactive Valium 10 mg tablet RxNorm: 990723 1 Tablet(s) QID as needed 11/13/2014 12/11/2014 Inactive (Response to an electronic controlled substance refill request - RxReferenceNumber: [id number]|1|0|1) hydrocodone 10 mg-acetaminophen 325 mg tablet RxNorm: 352698 Tablet(s) TAKE 1-2 TABLETS BY MOUTH EVERY 6 HOURS NEEDED FOR PAIN 11/13/2014 12/11/2014 Inactive ( Response to an electronic controlled substance refill request - RxReferenceNumber: [id number]|1|0|1) hydrocodone 10 mg-acetaminophen 325 mg tablet RxNorm: 882170 Tablet(s) TAKE 1-2 TABLETS BY MOUTH EVERY 6 HOURS NEEDED FOR PAIN 11/08/2014 11/12/2014 Inactive ( Response to an electronic controlled substance refill request - RxReferenceNumber: [id number]|1|0|1) Valium 10 mg tablet RxNorm: 626329 1 Tablet(s) QID as needed 11/08/2014 11/12/2014 Inactive (Response to an electronic controlled substance refill request - RxReferenceNumber: [id number]|1|0|1) metoprolol tartrate 25 mg tablet RxNorm: 725385 1/2 TABLET(S) PO BID TAKE 1/2 TABLET BY MOUTH TWICE DAILY 11/08/2014 Inactive Valium 10 mg tablet RxNorm: 516894 TAKE 1 TABLET BY MOUTH FOUR TIMES DAILY NEEDED FOR ANXIETY 11/06/2014 12/09/2014 Inactive Vitamin D2 50,000 unit capsule RxNorm: 483087 1 Capsule(s) PO QW 10/24/2014 10/23/2014 Inactive Vitamin D2 50,000 unit capsule RxNorm: 687804 1 Capsule(s) PO QW x 8 weeks 10/24/2014 12/22/2014 Inactive Entyvio 300 mg intravenous solution RxNorm: 5639594 IV 2014 No Stop Date Active hydrocodone 10 mg-acetaminophen 325 mg tablet RxNorm: 932015 Tablet(s) TAKE 1-2 TABLETS BY MOUTH EVERY 6 HOURS NEEDED FOR PAIN 10/05/2014 11/03/2014 Inactive ( Response to an electronic controlled substance refill request - RxReferenceNumber: [id number]|1|0|1) Valium 10 mg tablet RxNorm: 786742 TAKE 1 TABLET BY MOUTH EVERY 8 HOURS NEEDED 10/05/2014 11/03/2014 Inactive (Response to an electronic controlled substance refill request - RxReferenceNumber: [id number]|1|0|1) Valium 10 mg tablet RxNorm: 327755 1 Tablet(s) PO QID as needed TAKE 1 TABLET BY MOUTH 10/05/2014 11/05/2016 Inactive (Response to an electronic controlled substance refill request - RxReferenceNumber: [id number]|1|0|1) Valium 10 mg tablet RxNorm: 409965 TAKE 1 TABLET BY MOUTH THREE TIMES DAILY NEEDED 09/04/2014 10/03/2014 Inactive (Response to an electronic controlled substance refill request - RxReferenceNumber: [id number]|1|0|1) Valium 10 mg tablet RxNorm: 244187 1 Tablet(s) PO Q8 PRN as needed 09/04/2014 11/09/2014 Inactive hydrocodone 10 mg-acetaminophen 325 mg tablet RxNorm: 739698 Tablet(s) TAKE 1-2 TABLETS BY MOUTH EVERY 6 HOURS NEEDED FOR PAIN 08/27/2014 09/25/2014 Inactive ( Response to an electronic controlled substance refill request - RxReferenceNumber: [id number]|1|0|1) Claritin-D 12 Hour 5 mg-120 mg tablet,extended release RxNorm: 8422078 1 Tablet(s ) PO BID 08/27/2014 04/16/2015 Inactive Ventolin HFA 90 mcg/actuation aerosol inhaler RxNorm: 959382 1 or 2 Puff(s) INH Q6 PRN as needed 08/09/2014 03/06/2015 Inactive pantoprazole 40 mg tablet,delayed release RxNorm: 808400 Tablet(s) PO TAKE 1 TABLET BY MOUTH EVERY DAY 08/09/201408/08 Inactive pantoprazole 40 mg tablet,delayed release RxNorm: 257250 TAKE 1 TABLET BY MOUTH EVERY DAY 08/09/2014 11/05/2016 Inactive diazepam 10 mg tablet RxNorm: 039056 TAKE 1 TABLET BY MOUTH THREE TIMES DAILY NEEDED 07/02/2014 07/31/2014 Inactive (Response to an electronic controlled substance refill request - RxReferenceNumber: [id number]|1|0|1) Valium 10 mg tablet RxNorm: 927452 1 Tablet(s) PO Q8 PRN as needed 07/02/2014 07/01/2014 Inactive hydrocodone 10 mg-acetaminophen 325 mg tablet RxNorm: 799658 Tablet(s) TAKE 1-2 TABLETS BY MOUTH EVERY 6 HOURS NEEDED FOR PAIN 06/14/2014 07/13/2014 Inactive ( Response to an electronic controlled substance refill request - RxReferenceNumber: [id number]|1|0|1) diazepam 10 mg tablet RxNorm: 180955 TAKE 1 TABLET BY MOUTH THREE TIMES DAILY NEEDED 05/29/2014 06/27/2014 Inactive (Response to an electronic controlled substance refill request - RxReferenceNumber: [id number]|1|0|1) diazepam 10 mg tablet RxNorm: 763645 Tablet(s) PO TAKE 1 TABLET BY MOUTH THREE TIMES DAILY NEEDED 05/29/20142013 Inactive (Appended: Controlled substance eRx refill - RxReferenceNumber: [id number]|1|0|1) hydrocodone 10 mg-acetaminophen 325 mg tablet RxNorm: 837799 Tablet(s) TAKE 1-2 TABLETS BY MOUTH EVERY 6 HOURS NEEDED FOR PAIN 05/17/2014 06/13/2014 Inactive ( Response to an electronic controlled substance refill request - RxReferenceNumber: [id number]|1|0|1) diazepam 10 mg tablet RxNorm: 772161 Tablet(s) PO TAKE 1 TABLET BY MOUTH THREE TIMES DAILY NEEDED 04/27/20142013 Inactive (Appended: Controlled substance eRx refill - RxReferenceNumber: [id number]|1|0|1) Anucort-HC 25 mg suppository RxNorm: 2434617 1 SUPPOSITORY RTL QDAY PRN NEEDED 04/03/2014 06/01/2014 Inactive metoprolol tartrate 25 mg tablet RxNorm: 684539 1/2 TABLET(S) PO BID TAKE 1/2 TABLET BY MOUTH TWICE DAILY 04/03/201408/2014 Inactive Anucort-HC 25 mg suppository RxNorm: 8623464 1 SUPPOSITORY RTL QDAY PRN NEEDED 04/03/2014 06/01/2014 Inactive Seroquel 100 mg tablet RxNorm: 072918 1 TABLET(S) PO BID 201312/28/2014 Inactive TAKE 1 TABLET BY MOUTH TWICE DAILY Anucort-HC 25 mg suppository RxNorm: 7434628 1 SUPPOSITORY RTL QDAY PRN NEEDED 04/03/2014 06/01/2014 Inactive hydrocodone 10 mg-acetaminophen 325 mg tablet RxNorm: 214464 Tablet(s) TAKE 1-2 TABLETS BY MOUTH EVERY 6 HOURS NEEDED FOR PAIN 03/22/2014 04/20/2014 Inactive ( Response to an electronic controlled substance refill request - RxReferenceNumber: [id number]|1|0|1) Claritin-D 12 Hour 5 mg-120 mg tablet,extended release RxNorm: 5136099 1 Tablet(s ) PO BID 03/22/2014 2014 Inactive diazepam 10 mg tablet RxNorm: 023326 TAKE 1 TABLET BY MOUTH THREE TIMES DAILY NEEDED 03/19/2014 04/16/2014 Inactive (Response to an electronic controlled substance refill request - RxReferenceNumber: [id number]|1|0|1) Lipitor 20 mg tablet RxNorm: 835943 1 TABLET(S) PO DAILY 201312/05/2014 Inactive TAKE ONE TABLET BY MOUTH EVERY NIGHT AT BEDTIME Effexor XR 150 mg capsule,extended release RxNorm: 523548 1 CAPSULE(S) PO BID 03/01/2014 01/24/2015 Inactive TAKE 1 CAPSULE BY MOUTH TWICE DAILY Claritin-D 12 Hour 5 mg-120 mg tablet,extended release RxNorm: 7170580 1 Tablet(s ) PO BID 02/19/2014 03/21/2014 Inactive cyanocobalamin (vit B-12) 1,000 mcg/mL injection solution RxNorm: 187015 Milliliter(s) Inj 02/15/2014 02/15/2014 Inactive hydrocodone 10 mg-acetaminophen 325 mg tablet RxNorm: 188519 1 Tablet(s) PO Q6 PRN TAKE ONE TO TWO TABLETS BY MOUTH EVERY 6 HOURS NEEDED FOR PAIN 01/30/2014 01/30/2014 Inactive (Response to an electronic controlled substance refill request - RxReferenceNumber: [id number]|1|0|1) hydrocodone 10 mg-acetaminophen 325 mg tablet RxNorm: 791090 TAKE 1-2 TABLETS BY MOUTH EVERY 6 HOURS NEEDED FOR PAIN 01/30/2014 02/19/2014 Inactive (Response to an electronic controlled substance refill request - RxReferenceNumber: [id number]| [id number]|1|0|1) cyanocobalamin (vit B-12) 1,000 mcg/mL injection kit RxNorm: 215708 1 Milliliter(s ) Inj 01/15/2014 01/15/2014 Inactive Kenalog 40 mg/mL suspension for injection RxNorm: 6904465 1 Milliliter(s) Inj 01/15/2014 01/15/2014 Inactive Anucort-HC 25 mg suppository RxNorm: 9976562 1 Suppository RTL QDAY PRN as needed 01/15/2014 02/13/2014 Inactive hydrocodone 10 mg-acetaminophen 325 mg tablet RxNorm: 309399 TAKE ONE TO TWO TABLETS BY MOUTH EVERY 6 HOURS NEEDED FOR PAIN 12/29/2013 01/18/2014 Inactive ( Response to an electronic controlled substance refill request - RxReferenceNumber: [id number]|1|0|1) trazodone 100 mg tablet RxNorm: 419821 TAKE 2 TABLETS BY MOUTH EVERY NIGHT AT BEDTIME 12/20/2013 12/14/2014 Inactive mupirocin 2 % topical ointment RxNorm: 740759 1 APPLICATION TOP PRN 12/14/2013 01/09/2015 Inactive cyanocobalamin (vit B-12) 1,000 mcg/mL injection solution RxNorm: 656017 1 Milliliter(s) Inj 12/04/2013 12/04/2013 Inactive Savella 100 mg tablet RxNorm: 116084 1 Tablet(s) PO daily TAKE 1 TABLET BY MOUTH DAILY 11/28/2013 11/05/2016 Inactive Savella 100 mg tablet RxNorm: 583513 Tablet(s) PO TAKE 1 TABLET BY MOUTH DAILY 10/27/2013 11/27/2013 Inactive mupirocin 2 % topical ointment RxNorm: 128595 1 Application TOP PRN 10/17/2013 No Stop Date Active trazodone 100 mg tablet RxNorm: 268629 Tablet(s) PO TAKE 2 TABLETS BY MOUTH EVERY NIGHT AT BEDTIME 09/26/2013 11/05/2016 Inactive cyclobenzaprine 10 mg tablet RxNorm: 535156 Tablet(s) PO TAKE ONE TABLET BY MOUTH THREE TIMES DAILY 09/26/2013 01/07/2015 Inactive diazepam 10 mg tablet RxNorm: 990278 Tablet(s) PO TAKE 1 TABLET BY MOUTH THREE TIMES DAILY NEEDED 08/15/20132013 Inactive (Appended: Controlled substance eRx refill - RxReferenceNumber: [id number]|1|0|1) diazepam 10 mg tablet RxNorm: 529727 1 Tablet(s) PO TID PRN TAKE 1 TABLET BY MOUTH THREE TIMES DAILY NEEDED 08/15/2013 Inactive (Appended: Controlled substance eRx refill - RxReferenceNumber: [id number]|1|0|1) Vitamin B-12 1,000 mcg/mL injection solution RxNorm: 984420 Milliliter(s) Inj 07/24/2013 07/24/2013 Inactive pantoprazole 40 mg tablet,delayed release RxNorm: 496003 Tablet(s) PO TAKE 1 TABLET BY MOUTH EVERY DAY 07/20/201308/08 Inactive hydrocodone 10 mg-acetaminophen 325 mg tablet RxNorm: 252757 1 or 2 Tablet(s) PO Q6 PRN limit 6 per day 06/26/20132013 Inactive (Appended: Controlled substance eRx refill - RxReferenceNumber: [id number]|1|0|1) trazodone 100 mg tablet RxNorm: 850356 Tablet(s) PO TAKE 2 TABLETS BY MOUTH EVERY NIGHT AT BEDTIME 06/26/2013 11/05/2016 Inactive pantoprazole 40 mg tablet,delayed release RxNorm: 629673 Tablet(s) PO TAKE 1 TABLET BY MOUTH EVERY DAY 06/20/201306/05 Inactive prednisone 10 mg tablets in a dose pack RxNorm: 067111 Tablet(s) PO 6-5-4-3-2-1 06/13/2013 06/12/2013 Inactive prednisone 10 mg tablets in a dose pack RxNorm: 175691 Tablet(s) PO UD 6-5-4-3-2- 1 06/13/2013 06/18/2013 Inactive Silvadene 1 % topical cream RxNorm: 084432 1 TOP daily apply thin layer to left knee daily 06/12/2013 06/18/2013 Inactive metoprolol tartrate 25 mg tablet RxNorm: 192259 1/2 Tablet(s) PO BID TAKE 1/2 TABLET BY MOUTH TWICE DAILY 05/19/2013 Inactive Lipitor 20 mg tablet RxNorm: 878787 1 Tablet(s) PO daily 201203/11/2014 Inactive TAKE ONE TABLET BY MOUTH EVERY NIGHT AT BEDTIME Vitamin B-12 1,000 mcg/mL injection solution RxNorm: 082893 1 Milliliter(s) Inj 05/10/2013 05/10/2013 Inactive hydrocodone 10 mg-acetaminophen 325 mg tablet RxNorm: 513830 1 or 2 Tablet(s) PO Q6 PRN limit 6 per day 03/16/2013 No Stop Date Active (Appended: Controlled substance eRx refill - RxReferenceNumber: [id number]|1|0|1) Seroquel 100 mg tablet RxNorm: 333906 1 Tablet(s) PO BID 201203/10/2014 Inactive TAKE 1 TABLET BY MOUTH TWICE DAILY Effexor XR 150 mg capsule,extended release RxNorm: 792973 1 Capsule(s) PO BID 03/16/2013 02/28/2014 Inactive TAKE 1 CAPSULE BY MOUTH TWICE DAILY fluconazole 150 mg tablet RxNorm: 798857 1 Tablet(s) PO daily 03/06/2013 03/12/2013 Inactive Kenalog 40 mg/mL Susp for Injection RxNorm: 9394056 Milliliter(s) Inj 03/06/2013 03/06/2013 Inactive Ventolin HFA 90 mcg/actuation Aerosol Inhaler RxNorm: 4371269 1 or 2 Puff(s) INH Q6 PRN 02/20/2013 03/16/2014 Inactive cyanocobalamin (vitamin B-12) 1,000 mcg/mL Injection RxNorm: 020610 Milliliter(s) Inj 02/20/2013 02/20/2013 Inactive Valium 10 mg tablet RxNorm: 131197 1 Tablet(s) PO Q8 PRN 01/3102/24/2014 Inactive Kenalog 40 mg/mL Susp for Injection RxNorm: 6150162 Milliliter(s) Inj 12/26/2012 12/26/2012 Inactive cyanocobalamin (vitamin B-12) 1,000 mcg/mL Injection RxNorm: 607021 Milliliter(s) Inj 12/21/2012 12/21/2012 Inactive hydrocodone 10 mg-acetaminophen 325 mg tablet RxNorm: 4804138 1 or 2 Tablet(s) PO Q6 PRN limit 6 per day 11/25/20122012 Inactive (Appended: Controlled substance eRx refill - RxReferenceNumber: [id number]|1|0|1) diazepam 10 mg tablet RxNorm: 436728 1 Tablet(s) PO TID PRN 08/15/2013 Inactive TAKE 1 TABLET BY MOUTH THREE TIMES DAILY NEEDED (Appended: Controlled substance eRx refill - RxReferenceNumber: [id number]|1|0|1) diazepam 10 mg tablet RxNorm: 412333 Tablet(s) PO TAKE 1 TABLET BY MOUTH THREE TIMES DAILY NEEDED 11/21/20122013 Inactive (Appended: Controlled substance eRx refill - RxReferenceNumber: [id number]|1|0|1) Vitamin B-12 1,000 mcg/mL Injection RxNorm: 841439 1 Milliliter(s) Inj 11/16/2012 11/16/2012 Inactive hydrocodone 10 mg-acetaminophen 325 mg tablet RxNorm: 7741037 1 or 2 Tablet(s) PO Q6 PRN limit 6 per day 10/24/20122012 Inactive (Appended: Controlled substance eRx refill - RxReferenceNumber: [id number]|1|0|1) hydrocodone 10 mg-acetaminophen 325 mg tablet RxNorm: 6615474 Tablet(s) PO limit 5x days 10/24/2012 10/23/2012 Inactive (Appended: Controlled substance eRx refill - RxReferenceNumber: [id number]|1|0|1) Savella 100 mg tablet RxNorm: 552809 Tablet(s) PO TAKE 1 TABLET BY MOUTH DAILY 10/14/2012 12/05/2014 Inactive Tubersol 5 tub. unit/0.1 mL Intradermal RxNorm: 033360 Milliliter(s) IDrm 09/26/2012 09/26/2012 Inactive hydrocodone 10 mg-acetaminophen 325 mg tablet RxNorm: 0998726 1 Tablet(s) PO Q4 PRN q 4 hr prn limit 5 per day 09/19/2012 No Stop Date Active (Appended: Controlled substance eRx refill - RxReferenceNumber: [id number]|1|0|1) hydrocodone 10 mg-acetaminophen 325 mg tablet RxNorm: 8826286 Tablet(s) PO TAKE 1 TABLET BY MOUTH FOUR TIMES DAILY 09/16/2012 10/23/2012 Inactive (Appended: Controlled substance eRx refill - RxReferenceNumber: [id number]|1|0|1) cyclobenzaprine 10 mg tablet RxNorm: 525428 Tablet(s) PO TAKE ONE TABLET BY MOUTH THREE TIMES DAILY 09/16/2012 09/25/2013 Inactive hydrocodone 10 mg-acetaminophen 325 mg tablet RxNorm: 0777628 1 Tablet(s) PO Q4 PRN q 4 hr prn limit 5 per day 09/14/2012 09/19/2012 Inactive (Appended: Controlled substance eRx refill - RxReferenceNumber: [id number]|1|0|1) cyanocobalamin (vitamin B-12) 1,000 mcg/mL Injection RxNorm: 452161 1 Milliliter(s ) Inj 09/12/2012 09/12/2012 Inactive cyclobenzaprine 10 mg tablet RxNorm: 639611 Tablet(s) PO TAKE ONE TABLET BY MOUTH THREE TIMES DAILY 09/02/2012 09/15/2012 Inactive hydrocodone 10 mg-acetaminophen 325 mg tablet RxNorm: 5525048 1 Tablet(s) PO QID TAKE 1 TABLET BY MOUTH FOUR TIMES DAILY 08/23/2012 09/13/2012 Inactive (Appended: Controlled substance eRx refill - RxReferenceNumber: [id number]|1|0|1) Kenalog 40 mg/mL Susp for Injection RxNorm: 6189662 1 Milliliter(s) Inj 08/11/2012 08/11/2012 Inactive Vitamin B-12 1,000 mcg/mL Injection RxNorm: 967288 1 Milliliter(s) Inj 08/11/2012 08/11/2012 Inactive Zithromax 250 mg tablet RxNorm: 831689 Tablet(s) PO 07/21/2012 09/14/2012 Inactive please give z lauro cefdinir 300 mg capsule RxNorm: 169756 1 Capsule(s) PO BID 07/20/2012 Inactive cefdinir 300 mg capsule RxNorm: 884526 1 Capsule(s) PO BID 07/27/2012 Inactive diazepam 10 mg tablet RxNorm: 725840 1 Tablet(s) PO TID PRN 12/201211/22/2012 Inactive TAKE 1 TABLET BY MOUTH THREE TIMES DAILY NEEDED (Appended: Controlled substance eRx refill - RxReferenceNumber: [id number]|1|0|1) Vitamin B-12 1,000 mcg/mL Injection RxNorm: 941584 1 Milliliter(s) Inj 07/13/2012 07/13/2012 Inactive pantoprazole 40 mg tablet,delayed release RxNorm: 740320 1 Tablet(s) PO daily 06/14/2012 06/13/2012 Inactive pantoprazole 40 mg tablet,delayed release RxNorm: 478343 1 Tablet(s) PO daily 06/14/2012 06/19/2013 Inactive trazodone 100 mg tablet RxNorm: 236179 Tablet(s) PO TAKE 2 TABLETS BY MOUTH EVERY NIGHT AT BEDTIME 06/06/2012 11/05/2016 Inactive hydrocodone 10 mg-acetaminophen 325 mg tablet RxNorm: 9919139 Tablet(s) PO TAKE 1 TABLET BY MOUTH FOUR TIMES DAILY 05/24/2012 08/23/2012 Inactive (Appended: Controlled substance eRx refill - RxReferenceNumber: [id number]|1|0|1) Symbicort 160 mcg-4.5 mcg/actuation HFA Aerosol Inhaler RxNorm: 0839506 1 INH daily 05/24/2012 05/23/2012 Inactive this is an increase in dosing Symbicort 160 mcg-4.5 mcg/actuation HFA Aerosol Inhaler RxNorm: 7280588 1 INH daily 05/24/2012 06/17/2013 Inactive this is an increase in dosing Ventolin HFA 90 mcg/actuation Aerosol Inhaler RxNorm: 803744 1 or 2 Puff(s) INH Q6 PRN 05/24/2012 05/23/2012 Inactive Ventolin HFA 90 mcg/actuation Aerosol Inhaler RxNorm: 408679 1 or 2 Puff(s) INH Q6 PRN 05/24/2012 02/19/2013 Inactive metoprolol tartrate 25 mg tablet RxNorm: 141433 Tablet(s) PO TAKE 1/2 TABLET BY MOUTH TWICE DAILY 05/24/2012 05/18/2013 Inactive hydrocodone-acetaminophen 10 mg-325 mg tablet RxNorm: 1875700 Tablet(s) PO TAKE 1 TABLET BY MOUTH FOUR TIMES DAILY 05/17/2012 05/17/2012 Inactive (Appended: Controlled substance eRx refill - RxReferenceNumber: [id number]|1|0|1) diazepam 10 mg tablet RxNorm: 406042 Tablet(s) PO 05/03/2012 07/13/2012 Inactive TAKE 1 TABLET BY MOUTH THREE TIMES DAILY NEEDED (Appended: Controlled substance eRx refill - RxReferenceNumber: [id number]|1|0|1) metoprolol tartrate 25 mg tablet RxNorm: 567164 Tablet(s) PO 11/05/2016 Inactive TAKE 1/2 TABLET BY MOUTH TWICE DAILY hydrocodone-acetaminophen 10 mg-325 mg tablet RxNorm: 3252566 Tablet(s) PO 04/11/2012 05/17/2012 Inactive TAKE 1 TABLET BY MOUTH FOUR TIMES DAILY (Appended: Controlled substance eRx refill - RxReferenceNumber: [id number]|1|0|1) ProAir HFA 90 mcg/actuation Aerosol Inhaler RxNorm: 330201 2 INH Q4 PRN 04/05/2012 04/29/2013 Inactive Symbicort 80 mcg-4.5 mcg/actuation HFA Aerosol Inhaler RxNorm: 6326250 2 INH BID 04/05/2012 04/04/2012 Inactive Symbicort 80 mcg-4.5 mcg/actuation HFA Aerosol Inhaler RxNorm: 0399070 2 INH BID 04/05/2012 05/23/2012 Inactive ProAir HFA 90 mcg/actuation Aerosol Inhaler RxNorm: 607278 2 INH Q4 PRN 04/05/2012 04/04/2012 Inactive diazepam 10 mg tablet RxNorm: 693069 Tablet(s) PO 03/17/2012 05/03/2012 Inactive TAKE 1 TABLET BY MOUTH THREE TIMES DAILY NEEDED (Appended: Controlled substance eRx refill - RxReferenceNumber: [id number]|1|0|1) Effexor XR 150 mg capsule,extended release RxNorm: 221820 Capsule(s) PO 03/13/2012 03/15/2013 Inactive TAKE 1 CAPSULE BY MOUTH TWICE DAILY fluconazole 150 mg tablet RxNorm: 902976 1 Tablet(s) PO daily 03/11/2012 03/17/2012 Inactive Lipitor 20 mg tablet RxNorm: 042901 Tablet(s) PO 02/25/2012 03/20/2013 Inactive TAKE ONE TABLET BY MOUTH EVERY NIGHT AT BEDTIME Seroquel 100 mg tablet RxNorm: 601988 1 Tablet(s) PO BID 201102/18/2013 Inactive TAKE 1 TABLET BY MOUTH TWICE DAILY hydrocodone-acetaminophen 10 mg-325 mg tablet RxNorm: 5978380 Tablet(s) PO 02/25/2012 04/11/2012 Inactive TAKE 1 TABLET BY MOUTH FOUR TIMES DAILY . (Appended : Controlled substance eRx refill - RxReferenceNumber: [id number]|1|0|1) Seroquel 100 mg tablet RxNorm: 661310 1 Tablet(s) PO BID 201102/24/2012 Inactive TAKE 1 TABLET BY MOUTH TWICE DAILY Nexium 40 mg capsule,delayed release RxNorm: 427381 1 Capsule(s) PO daily 02/16/2012 06/13/2012 Inactive Effexor XR 150 mg capsule,extended release RxNorm: 020769 Capsule(s) PO 01/14/2012 11/05/2016 Inactive TAKE 1 CAPSULE BY MOUTH TWICE DAILY Kenalog 40 mg/mL Susp for Injection RxNorm: 7260709 1 Milliliter(s) Inj 01/13/2012 01/13/2012 Inactive Vitamin B-12 1,000 mcg/mL Injection RxNorm: 063049 Milliliter(s) Inj 12/21/2011 12/21/2011 Inactive hydrocodone-acetaminophen 10 mg-325 mg tablet RxNorm: 7028029 Tablet(s) PO 12/15/2011 02/25/2012 Inactive TAKE 1 TABLET BY MOUTH FOUR TIMES DAILY (Appended: Controlled substance eRx refill - RxReferenceNumber: [id number]|1|0|1) diazepam 10 mg tablet RxNorm: 336898 Tablet(s) PO 12/15/2011 03/17/2012 Inactive TAKE 1 TABLET BY MOUTH THREE TIMES DAILY NEEDED (Appended: Controlled substance eRx refill - RxReferenceNumber: [id number]|1|0|1) diazepam 10 mg Tab RxNorm: 139060 1 Tablet(s) PO daily 201112/15/2011 Inactive TAKE 1 TABLET BY MOUTH THREE TIMES DAILY (Appended: Controlled substance eRx refill - RxReferenceNumber: [id number]|1|0|1) hydrocodone-acetaminophen 10 mg-325 mg Tab RxNorm: 8040592 1 Tablet(s) PO QID 12/14/2011 12/15/2011 Inactive TAKE 1 TABLET BY MOUTH FOUR TIMES DAILY (Appended: Controlled substance eRx refill - RxReferenceNumber: [id number]|1|0|1) Seroquel 100 mg tablet RxNorm: 150846 Tablet(s) PO 11/27/2011 03/15/2013 Inactive TAKE 1 TABLET BY MOUTH TWICE DAILY hydrocodone-acetaminophen 10 mg-325 mg Tab RxNorm: 7942649 1 Tablet(s) PO QID 11/27/2011 12/13/2011 Inactive TAKE 1 TABLET BY MOUTH FOUR TIMES DAILY (Appended: Controlled substance eRx refill - RxReferenceNumber: [id number]|1|0|1) Seroquel 100 mg Tab RxNorm: 375915 1 Tablet(s) PO BID 201111/26/2011 Inactive Seroquel 100 mg tablet RxNorm: 700638 Tablet(s) PO 11/27/2011 02/16/2012 Inactive TAKE 1 TABLET BY MOUTH TWICE DAILY Nexium 40 mg capsule,delayed release RxNorm: 881854 1 Capsule(s) PO daily 11/16/2011 02/15/2012 Inactive cyanocobalamin (vitamin B-12) 1,000 mcg/mL Injection RxNorm: 146347 1 Milliliter(s ) Inj 10/30/2011 10/30/2011 Inactive hydrocodone-acetaminophen 10 mg-325 mg Tab RxNorm: 3387078 1 Tablet(s) PO QID 10/13/2011 11/23/2011 Inactive TAKE 1 TABLET BY MOUTH FOUR TIMES DAILY (Appended: Controlled substance eRx refill - RxReferenceNumber: [id number]|1|0|1) Effexor XR 150 mg capsule,extended release RxNorm: 800756 1 Capsule(s) PO BID 10/12/2011 01/09/2012 Inactive Fish Oil 1,000 mg Cap RxNorm: 1 Capsule(s) PO QID 10/02/2011 No Stop Date Active Vitamin B-12 1,000 mcg/mL Injection RxNorm: 729766 Milliliter(s) Inj 10/02/2011 10/02/2011 Inactive Kenalog 40 mg/mL Susp for Injection RxNorm: 3967305 Milliliter(s) Inj 10/02/2011 10/02/2011 Inactive diazepam 10 mg Tab RxNorm: 645692 1 Tablet(s) PO daily 201112/13/2011 Inactive TAKE 1 TABLET BY MOUTH THREE TIMES DAILY (Appended: Controlled substance eRx refill - RxReferenceNumber: [id number]|1|0|1) Vitamin B-12 1,000 mcg/mL Injection RxNorm: 846433 Milliliter(s) Inj 09/01/2011 09/01/2011 Inactive hydrocodone-acetaminophen 10 mg-325 mg Tab RxNorm: 7847204 1 Tablet(s) PO QID 08/25/2011 10/05/2011 Inactive TAKE 1 TABLET BY MOUTH FOUR TIMES DAILY (Appended: Controlled substance eRx refill - RxReferenceNumber: [id number]|1|0|1) diazepam 10 mg Tab RxNorm: 651210 Tablet(s) PO 08/10/2011 No Stop Date Active TAKE 1 TABLET BY MOUTH THREE TIMES DAILY (Appended: Controlled substance eRx refill - RxReferenceNumber: [id number]|1|0|1) Vitamin B-12 1,000 mcg/mL Injection RxNorm: 497359 Milliliter(s) Inj 08/03/2011 08/03/2011 Inactive fluticasone 50 mcg/actuation Nasal [place], Susp RxNorm: 9238829 2 [place] NASAL BID 07/27/2011 08/19/2012 Inactive hydrocodone-acetaminophen 10 mg-325 mg Tab RxNorm: 6258393 Tablet(s) PO 07/09/2011 08/24/2011 Inactive TAKE 1 TABLET BY MOUTH FOUR TIMES DAILY (Appended: Controlled substance eRx refill - RxReferenceNumber: [id number]|1|0|1) diazepam 10 mg Tab RxNorm: 527294 Tablet(s) PO 07/09/2011 08/09/2011 Inactive TAKE 1 TABLET BY MOUTH THREE TIMES DAILY (Appended: Controlled substance eRx refill - RxReferenceNumber: [id number]|1|0|1) diazepam 10 mg Tab RxNorm: 132047 Tablet(s) PO 07/08/2011 07/08/2011 Inactive TAKE 1 TABLET BY MOUTH THREE TIMES DAILY (Appended: Controlled substance eRx refill - RxReferenceNumber: [id number]|1|0|1) hydrocodone-acetaminophen 10 mg-325 mg Tab RxNorm: 3111287 Tablet(s) PO 07/08/2011 07/08/2011 Inactive TAKE 1 TABLET BY MOUTH FOUR TIMES DAILY (Appended: Controlled substance eRx refill - RxReferenceNumber: [id number]|1|0|1) cyclobenzaprine 10 mg tablet RxNorm: 061102 Tablet(s) PO 201109/01/2012 Inactive TAKE ONE TABLET BY MOUTH THREE TIMES DAILY Lipitor 40 mg Tab RxNorm: 671507 1 Tablet(s) PO daily 201106/16/2011 Inactive Lipitor 40 mg Tab RxNorm: 118178 1 Tablet(s) PO daily 201106/10/2012 Inactive trazodone 100 mg tablet RxNorm: 197369 Tablet(s) PO 06/02/2011 06/05/2012 Inactive TAKE 2 TABLETS BY MOUTH EVERY NIGHT AT BEDTIME diazepam 10 mg Tab RxNorm: 531732 Tablet(s) PO 05/28/2011 05/29/2011 Inactive TAKE 1 TABLET BY MOUTH THREE TIMES DAILY (Appended: Controlled substance eRx refill - RxReferenceNumber: [id number]|1|0|1) diazepam 10 mg Tab RxNorm: 837743 Tablet(s) PO 05/28/2011 07/08/2011 Inactive TAKE 1 TABLET BY MOUTH THREE TIMES DAILY (Appended: Controlled substance eRx refill - RxReferenceNumber: [id number]|1|0|1) hydrocodone-acetaminophen 10 mg-325 mg Tab RxNorm: 3287386 1 Tablet(s) PO QID 05/26/2011 07/08/2011 Inactive metoprolol tartrate 25 mg tablet RxNorm: 896188 Tablet(s) PO 04/10/2012 Inactive TAKE 1/2 TABLET BY MOUTH TWICE DAILY Savella 100 mg tablet RxNorm: 408244 Tablet(s) PO 05/14/2011 10/13/2012 Inactive TAKE 1 TABLET BY MOUTH DAILY Influenza Virus Vaccine 0.5 mL RxNorm: IM 02/23/2011 02/23/2011 Inactive B12 1000 mcg RxNorm: IM 02/23/20112010 Inactive hydrocodone-acetaminophen 10 mg-325 mg Tab RxNorm: 8458055 1 Tablet(s) PO QID 01/29/2011 01/28/2011 Inactive Restasis 0.05 % eye drops in a dropperette RxNorm: 189058 1 OPH BID No Start Date Active vitamin A-vit C-vit E-zinc-Se Tab RxNorm: 1 Tablet(s) PO daily No Start Date Active garlic extract Oral RxNorm: Oral No Start Date Active Acidophilus Tab RxNorm : 2 Tablet(s) PO QHS No Start Date Active Cranberry Concentrate Cap RxNorm: 1 Capsule(s) PO BID No Start Date Active Xopenex 1.25 mg/3 mL Neb Solution RxNorm: 659060 1 Milliliter(s) INH TID No Start Date Active niacin ER 500 mg Tab RxNorm: 368789 2 Tablet(s) PO HS No Start Date Active SenokotXTRA 17.2 mg Tab RxNorm: 7846962 Oral No Start Date Active Lotemax 0.5 % eye ointment RxNorm: 1567631 1 OPH QHS No Start Date Active Gaviscon Extra Strength Oral RxNorm: Oral No Start Date Active melatonin 3 mg Tab RxNorm: 723861 1 Tablet(s) PO QHS No Start Date Active Voltaren 1 % Topical Gel RxNorm: 011658 4 Gram(s) TOP QID No Start Date Active Vitamin D 1,000 unit Cap RxNorm: 451451 1 Capsule(s) PO QHS No Start Date Active Mucinex DM 30 mg-600 mg 12 hr Tab RxNorm: 1131180 1 Tablet(s) PO BID No Start Date Active calcium citrate 200 mg (950 mg) Tab RxNorm: 185510 1 Tablet(s) PO QID No Start Date Active valerian 530 mg Cap RxNorm: 2 Capsule(s) PO QHS No Start Date Active Anucort-HC 25 mg Suppository RxNorm: 0465207 1 Suppository RTL QDAY PRN No Start Date 01/14/2014 Inactive Nexium 40 mg Capsule, delayed release RxNorm: 099805 1 Capsule(s) PO daily No Start Date 11/15/2011 Inactive Lipitor 20 mg tablet RxNorm: 720645 1 Tablet(s) PO QHS No Start Date 02/25/2012 Inactive mupirocin 2 % topical ointment RxNorm: 678210 1 Application TOP PRN No Start Date 10/16/2013 Inactive fluconazole 150 mg tablet RxNorm: 014898 1 Tablet(s) PO daily No Start Date 03/10/2012 Inactive Fish Oil 1,000 mg Cap RxNorm: 1 Capsule(s) PO TID No Start Date 10/01/2011 Inactive hydrocodone-acetaminophen 10 mg-325 mg Tab RxNorm: 0997855 1 Tablet(s) PO QID No Start Date 05/25/2011 Inactive Zithromax 250 mg tablet RxNorm: 753738 Tablet(s) PO No Start Date 07/20/2012 Inactive please give z lauro prednisone 10 mg tablet RxNorm: 299131 Tablet(s) PO taper. 6-5-4-3-2-1 # 21 No Start Date 09/16/2017 Inactive fluticasone 50 mcg/actuation Nasal [place], Susp RxNorm: 3912367 2 [place] NASAL BID No Start Date 07/26/2011 Inactive Seroquel 100 mg Tab RxNorm: 533962 1 Tablet(s) PO BID No Start Date 11/26/2011 Inactive nystatin 100,000 unit/gram topical powder RxNorm: 874178 1 Application TOP QID until healed No Start Date 10/26/2016 Inactive Savella 100 mg Tab RxNorm: 304272 1 Tablet(s) PO daily No Start Date 05/13/2011 Inactive cyclobenzaprine 10 mg Tab RxNorm: 533155 1 Tablet(s) PO TID No Start Date 07/05/2011 Inactive metoprolol tartrate 25 mg Tab RxNorm: 119087 1/2 Tablet(s) PO BID No Start Date 05/25/2011 Inactive trazodone 100 mg Tab RxNorm: 524989 2 Tablet(s) PO QHS No Start Date 06/01/2011 Inactive Zithromax Z-Lauro 250 mg tablet RxNorm: 291800 1 Tablet(s) PO UD No Start Date 07/11/2015 Inactive z lauro Effexor XR 150 mg 24 hr Cap RxNorm: 071235 1 Capsule(s) PO BID No Start Date 10/11/2011 Inactive diazepam 10 mg Tab RxNorm: 071140 1 Tablet(s) PO TID No Start Date 05/28/2011 Inactive tramadol 50 mg tablet RxNorm: 052189 1-2 Tablet(s) PO Q6 as needed No Start Date 05/28/2015 Inactive Medication Administered Medication Codes Instructions Start Date Status cyanocobalamin (vit B-12) 1,000 mcg/mL injection solution RxNorm: 119705 1Milliliter 03/10/2018 No longer Active cyanocobalamin (vit B-12) 1,000 mcg/mL injection solution RxNorm: 868937 1Milliliter 10/19/2017 No longer Active cyanocobalamin (vit B-12) 1,000 mcg/mL injection solution RxNorm: 148324 1Milliliter 08/19/2017 No longer Active cyanocobalamin (vit B-12) 1,000 mcg/mL injection solution RxNorm: 170345 1Milliliter 07/06/2017 No longer Active cyanocobalamin (vit B-12) 1,000 mcg/mL injection solution RxNorm: 677386 1Milliliter 04/27/2017 No longer Active cyanocobalamin (vit B-12) 1,000 mcg/mL injection solution RxNorm: 596706 1Milliliter 11/17/2016 No longer Active cyanocobalamin (vit B-12) 1,000 mcg/mL injection solution RxNorm: 905954 1Milliliter 10/12/2016 No longer Active cyanocobalamin (vit B-12) 1,000 mcg/mL injection solution RxNorm: 177857 1Milliliter 09/11/2016 No longer Active cyanocobalamin (vit B-12) 1,000 mcg/mL injection solution RxNorm: 375700 Milliliter 07/03/2016 No longer Active cyanocobalamin (vit B-12) 1,000 mcg/mL injection solution RxNorm: 513619 1Milliliter 04/20/2016 No longer Active cyanocobalamin (vit B-12) 1,000 mcg/mL injection solution RxNorm: 519304 Milliliter 02/13/2016 No longer Active cyanocobalamin (vit B-12) 1,000 mcg/mL injection solution RxNorm: 863396 1Milliliter 12/02/2015 No longer Active cyanocobalamin (vit B-12) 1,000 mcg/mL injection solution RxNorm: 051164 1Milliliter 10/29/2015 No longer Active cyanocobalamin (vit B-12) 1,000 mcg/mL injection solution RxNorm: 560354 Milliliter 06/10/2015 No longer Active cyanocobalamin (vit B-12) 1,000 mcg/mL injection solution RxNorm: 703185 Milliliter 02/15/2014 No longer Active cyanocobalamin (vit B-12) 1,000 mcg/mL injection kit RxNorm : 352121 1Milliliter 01/15/2014 No longer Active Kenalog 40 mg/mL suspension for injection RxNorm: 3749257 1Milliliter 01/15/2014 No longer Active cyanocobalamin (vit B-12) 1,000 mcg/mL injection solution RxNorm: 187601 1Milliliter 12/04/2013 No longer Active Vitamin B-12 1,000 mcg/mL injection solution RxNorm: 113463 Milliliter 07/24/2013 No longer Active Vitamin B-12 1,000 mcg/mL injection solution RxNorm: 608214 1Milliliter 05/10/2013 No longer Active Kenalog 40 mg/mL Susp for Injection RxNorm: 7964108 Milliliter 03/06/2013 No longer Active cyanocobalamin (vitamin B-12) 1,000 mcg/mL Injection RxNorm : 606477 Milliliter 02/20/2013 No longer Active Kenalog 40 mg/mL Susp for Injection RxNorm: 5773570 Milliliter 12/26/2012 No longer Active cyanocobalamin (vitamin B-12) 1,000 mcg/mL Injection RxNorm : 504238 Milliliter 12/21/2012 No longer Active Vitamin B-12 1,000 mcg/mL Injection RxNorm: 504984 1Milliliter 11/16/2012 No longer Active Tubersol 5 tub. unit/0.1 mL Intradermal RxNorm: 501412 Milliliter 09/26/2012 No longer Active cyanocobalamin (vitamin B-12) 1,000 mcg/mL Injection RxNorm : 482386 1Milliliter 09/12/2012 No longer Active Kenalog 40 mg/mL Susp for Injection RxNorm: 8436820 1Milliliter 08/11/2012 No longer Active Vitamin B-12 1,000 mcg/mL Injection RxNorm: 764093 1Milliliter 08/11/2012 No longer Active Vitamin B-12 1,000 mcg/mL Injection RxNorm: 820959 1Milliliter 07/13/2012 No longer Active Kenalog 40 mg/mL Susp for Injection RxNorm: 3552645 1Milliliter 01/13/2012 No longer Active Vitamin B-12 1,000 mcg/mL Injection RxNorm: 354266 Milliliter 12/21/2011 No longer Active cyanocobalamin (vitamin B-12) 1,000 mcg/mL Injection RxNorm : 530020 1Milliliter 10/30/2011 No longer Active Kenalog 40 mg/mL Susp for Injection RxNorm: 4297272 Milliliter 10/02/2011 No longer Active Vitamin B-12 1,000 mcg/mL Injection RxNorm: 916981 Milliliter 10/02/2011 No longer Active Vitamin B-12 1,000 mcg/mL Injection RxNorm: 907051 Milliliter 09/01/2011 No longer Active Vitamin B-12 1,000 mcg/mL Injection RxNorm: 697187 Milliliter 08/03/2011 No longer Active Influenza Virus [...] 02/23/2011 completed Assessments Condition Codes Effective Dates Acute upper respiratory infection, unspecified ICD-10: J06.9 ICD-9: 465.9 06/16/2018 Generalized anxiety disorder ICD-10: F41.1 ICD-9: 300.02 06/16/2018 Essential (primary) hypertension ICD-10: I10 ICD-9: 401.9 06/01/2018 Low back pain ICD-10: M54.5 ICD-9: 724.2 06/01/2018 Chronic pain syndrome ICD-10: G89.4 ICD-9: 338.4 06/01/2018 Vitamin B12 deficiency anemia due to intrinsic factor deficiency ICD-10: D51.0 ICD-9: 281.0 04/05/2018 Essential (primary) hypertension ICD-10: I10 ICD-9: 401.1 04/05/2018 Major depressive disorder, recurrent, mild ICD-10: F33.0 ICD-9: 296.31 03/10/2018 Cervicalgia ICD-10: M54.2 ICD-9: 723.1 01/13/2018 Headache ICD-10: R51 ICD-9: 784.0 01/13/2018 Obstructive sleep apnea (adult) (pediatric) ICD-10: G47.33 ICD-9: 327.23 01/13/2018 Spinal stenosis, cervical region ICD-10: M48.02 ICD-9: 723.0 11/25/2017 Allergic contact dermatitis due to plants, except food ICD- 10: L23.7 ICD-9: 692.6 10/19/2017 Generalized abdominal pain ICD-10: R10.84 ICD-9: 789.07 09/17/2017 Hypokalemia ICD-10: E87.6 ICD-9: 276.8 09/17/2017 Urinary tract infection, site not specified ICD-10: N39.0 ICD-9: 599.0 09/17/2017 Pain in left knee ICD-10: M25.562 ICD-9: 719.46 09/06/2017 Pain in right knee ICD-10: M25.561 ICD-9: 719.46 09/06/2017 Vitamin D deficiency, unspecified ICD-10: E55.9 ICD-9: 268.9 08/19/2017 Vitamin B12 deficiency anemia, unspecified ICD-10: D51.9 [...] right foot ICD-10: M21.371 ICD-9: 736.79 10/12/2016 Foot drop, left foot ICD-10: M21.372 ICD-9: 736.79 10/12/2016 Other abnormalities of gait and mobility ICD-10: R26.89 ICD-9: 781.2 10/12/2016 Pain in right ankle and joints of right foot ICD-10: M25.571 ICD-9: 719.47 08/18/2016 Superficial foreign body, right foot, initial encounter ICD- 10: S90.851A ICD-9: 917.6 08/18/2016 Candidiasis of vulva and vagina ICD-10: B37.3 ICD-9: 112.1 08/07/2016 Pain in left ankle and joints of left foot ICD-10: M25.572 ICD-9: 719.47 07/31/2016 Hypoxemia ICD-10: R09.02 ICD-9: 799.02 04/20/2016 Pleurodynia ICD-10: R07.81 ICD-9: 786.50 04/20/2016 Radiculopathy, lumbar region ICD-10: M54.16 ICD-9: 724.4 03/17/2016 Encounter for immunization ICD-10: Z23 ICD-9: V04.81 03/17/2016 Mixed hyperlipidemia ICD-10: E78.2 ICD-9: 272.4 02/13/2016 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 malabsorption with proteinuria ICD-10: D51.1 ICD-9: 281.1 02/13/2016 Encounter for screening mammogram for malignant [...] 2014 CHRONIC PAIN SYNDROME ICD-9: 338.4 2014 GENERALIZED ANXIETY DISEASE ICD-9: 300.02 12/21/2014 MYALGIA AND MYOSITIS ICD-9: 729.1 2014 ESSENTIAL HYPERTENSION ICD-9: 401.9 10/05 Ankle pain ICD-9: 719.47 06/14/2014 Knee pain, right ICD-9: 719.46 2014 B12 deficiency ICD-9: 266.2 02/15/2014 Hemorrhoids ICD-9: [...] 2011 Right foot pain ICD-9: 729.5 05/26/2012 Esophageal reflux ICD-9: 530.81 2011 Chest wall pain ICD-9: 786.52 02/15/2012 HYPERLIPIDEMIA ICD-9: 272.4 01/13/2012 Costalchondritis ICD-9: 733.6 12/21/2011 Hypopotassemia ICD-9: 276.8 10/02/2011 Fall on same level from slipping, tripping, or stumbling ICD -9: E885.9 09/01/2011 Neck pain ICD-9: 723.1 09/01/2011 Pain in joint involving forearm ICD-9: 719.43 09/01/2011 Vulvovaginitis ICD-9: 616.10 08/03/2011 OVERWEIGHT ICD-9: 278.02 08/03/2011 Foul smelling urine ICD-9: 791.9 2011 Weight gain ICD-9: 783.1 06/29/2011 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 10/2010 Reason For Visit Reason [...] injuries from a fall (hurts after sitting "[place]ymro style" abdominal pain 02/12/2011 joint complaint 01/29/2011 Results Observation Observation Code Item Item Code Result Date Comp Metabolic Ovo505 NA 138 mEq/L 09/20/2017 Comp Metabolic Yza682 K 4.1 mEq/L 09/20/2017 Comp Metabolic Idc375 CL 101 mEq/L 09/20/2017 Comp Metabolic Iur120 CO2 25.0 mEq/L 09/20/2017 Comp Metabolic Dnx108 ANION GAP 16 09/20/2017 Comp Metabolic Oyz055 GLUCOSE 105 mg/dL 09/20/2017 Comp Metabolic Oyo548 Creat 0.8 mg/dL 09/20/2017 Comp Metabolic Rse624 eGFR 86 ml/min/1.73m2 09/20/2017 Comp Metabolic Ftw518 BUN 24 mg/dL 09/20/2017 Comp Metabolic Xqh555 B/C Ratio 31.6 Ratio 09/20/2017 Comp Metabolic Ibe592 CALCIUM 10.0 mg/dL 09/20/2017 Comp Metabolic Tyh948 ALK PHOS 63 U/L 09/20/2017 Comp Metabolic Oak937 AST(SGOT) 28 U/L 09/20/2017 Comp Metabolic Ekl848 ALT(SGPT) 34 U/L 09/20/2017 Comp Metabolic Qtc446 BILI T 0.3 mg/dL 09/20/2017 Comp Metabolic Grx202 ALBUMIN 4.8 g/dL 09/20/2017 Comp Metabolic Nvy953 TPRO 7.2 g/dL 09/20/2017 Comp Metabolic Zgj369 GLOB 2.4 g/dL 09/20/2017 Comp Metabolic Qdi618 A/G Ratio 2.0 Ratio 09/20/2017 Comp Metabolic Gvi044 Osmo 280 mOsmo 09/20/2017 Urine Culture Ucult Preliminary NO Growth Day 1 09/20/2017 Urine Culture Ucult Complete NO Growth Day 2 09/20/2017 Vitamin D 25 Oh Aru2978 VITAMIN D, 25 HYDROXY 46.43 ng/mL Comp Metabolic Gqj382 NA 143 mEq/L 08/25/2017 Comp Metabolic Ojv817 K 4.1 mEq/L 08/25/2017 Comp Metabolic Lcb977 CL 102 mEq/L 08/25/2017 Comp Metabolic Wbe738 CO2 33.0 mEq/L 08/25/2017 Comp Metabolic Otw289 ANION GAP 12 08/25/2017 Comp Metabolic Hek774 GLUCOSE 99 mg/dL 08/25/2017 Comp Metabolic Ctl198 Creat 0.8 mg/dL 08/25/2017 Comp Metabolic Pql965 eGFR 86 ml/min/1.73m2 08/25/2017 Comp Metabolic Ctz271 BUN 19 mg/dL 08/25/2017 Comp Metabolic Lkz809 B/C Ratio 25.0 Ratio 08/25/2017 Comp Metabolic Yvt910 CALCIUM 9.5 mg/dL 08/25/2017 Comp Metabolic Irf360 ALK PHOS 63 U/L 08/25/2017 Comp Metabolic Wbo845 AST(SGOT) 17 U/L 08/25/2017 Comp Metabolic Cfb073 ALT(SGPT) 20 U/L 08/25/2017 Comp Metabolic Vjd816 BILI T 0.3 mg/dL 08/25/2017 Comp Metabolic Yjn144 ALBUMIN 4.5 g/dL 08/25/2017 Comp Metabolic Vec112 TPRO 6.6 g/dL 08/25/2017 Comp Metabolic Usy135 GLOB 2.1 g/dL 08/25/2017 Comp Metabolic Kiu520 A/G Ratio 2.1 Ratio 08/25/2017 Comp Metabolic Tge881 Osmo 287 mOsmo 08/25/2017 B12 Bmt216 B12 904.00 pg/ml 08/25/2017 Tsh Ord6 TSH [...] 12.2 g/dl 08/25/2017 Cbc With Differential Ord2 Neut% 44.4 % 08/25/2017 Cbc With Differential Ord2 HCT 39.1 % 08/25/2017 Cbc With Differential Ord2 MCV 103.4 fl 08/25/2017 Cbc With Differential Ord2 Lymph% 46.7 % 08/25/2017 Cbc With Differential Ord2 MCH 32.3 pg 08/25/2017 Cbc With Differential Ord2 [place]% 7.5 % 08/25/2017 Cbc With Differential Ord2 MCHC 31.2 pg 08/25/2017 Cbc With Differential Ord2 Eos% 1.3 % 08/25/2017 Cbc With Differential Ord2 Baso% 0.1 % 08/25/2017 Cbc With Differential Ord2 PLT 205 K/ul 08/25/2017 Cbc With Differential Ord2 RDW 13.1 % 08/25/2017 Cbc With Differential Ord2 Neut ABS# 3.47 K/ul 08/25/2017 Cbc With Differential Ord2 Lymph ABS# 3.65 K/ul 08/25/2017 Cbc With Differential Ord2 [place] ABS# 0.6 K/ul 08/25/2017 Cbc With Differential Ord2 Eos ABS# 0.1 K/ul 08/25/2017 Cbc With Differential Ord2 Baso ABS# 0.0 K/ul 08/25/2017 Tsh Ord6 hTSH II 1.18 uIU/mL 10/12/2016 Comp Metabolic Xdq856 NA 139 mEq/L 10/12/2016 Comp Metabolic Kma152 K 3.5 mEq/L 10/12/2016 Comp Metabolic Mwv498 CL 102 mEq/L 10/12/2016 Comp Metabolic Qvc198 CO2 25.0 mEq/L 10/12/2016 Comp Metabolic Bij775 ANION GAP 16 10/12/2016 Comp Metabolic Qar504 GLUCOSE 84 mg/dL 10/12/2016 Comp Metabolic Zhd884 Creat 0.6 mg/dL 10/12/2016 Comp Metabolic Ikj241 eGFR 105 ml/min/1.73m2 10/12/2016 Comp Metabolic Cdo653 BUN 12 mg/dL 10/12/2016 Comp Metabolic Rqz113 B/C Ratio 18.8 Ratio 10/12/2016 Comp Metabolic Hhz573 CALCIUM 9.2 mg/dL 10/12/2016 Comp Metabolic Wrl380 ALK PHOS 59 U/L 10/12/2016 Comp Metabolic Iag364 AST(SGOT) 21 U/L 10/12/2016 Comp Metabolic Juf761 ALT(SGPT) 27 U/L 10/12/2016 Comp Metabolic Kst148 BILI T 0.2 mg/dL 10/12/2016 Comp Metabolic Put680 ALBUMIN 4.4 g/dL 10/12/2016 Comp Metabolic Mvu861 TPRO 6.7 g/dL 10/12/2016 Comp Metabolic Pux363 GLOB 2.3 g/dL 10/12/2016 Comp Metabolic Mlz790 A/G Ratio 1.9 Ratio 10/12/2016 Comp Metabolic Kgd156 Osmo 276 mOsmo 10/12/2016 Cbc With Differential Ord2 WBC 9.77 K/ul 10/12/2016 Cbc With Differential Ord2 RBC 3.67 M/ul 10/12/2016 Cbc With Differential Ord2 HGB 12.0 g/dl 10/12/2016 Cbc With Differential Ord2 Neut% 58.9 % 10/12/2016 Cbc With Differential Ord2 HCT 37.8 % 10/12/2016 Cbc With Differential Ord2 MCV 103.0 fl 10/12/2016 Cbc With Differential Ord2 Lymph% 31.9 % 10/12/2016 Cbc With Differential Ord2 MCH 32.7 pg 10/12/2016 Cbc With Differential Ord2 [place]% 8.0 % 10/12/2016 Cbc With Differential Ord2 Eos% 1.0 % 10/12/2016 Cbc With Differential Ord2 MCHC 31.7 pg 10/12/2016 Cbc With Differential Ord2 Baso% 0.2 % 10/12/2016 Cbc With Differential Ord2 PLT 238 K/ul 10/12/2016 Cbc With Differential Ord2 RDW 13.2 % 10/12/2016 Cbc With Differential Ord2 Neut ABS# 5.75 K/ul 10/12/2016 Cbc With Differential Ord2 Lymph ABS# 3.12 K/ul 10/12/2016 Cbc With Differential Ord2 [place] ABS# 0.8 K/ul 10/12/2016 Cbc With Differential Ord2 Eos ABS# 0.1 K/ul 10/12/2016 Cbc With Differential Ord2 Baso ABS# 0.0 K/ul 10/12/2016 Lipid Ord30 CHOL 194 mg/dL 10/12/2016 Lipid Ord30 HDL 76.0 mg/dl 10/12/2016 Lipid Ord30 TRIG 159 mg/dL 10/12/2016 Lipid Ord30 LDL 86 mg/dL 10/12/2016 Lipid Ord30 C/HDL 2.6 Ratio 10/12/2016 Comp Metabolic Knc325 NA 139 mEq/L 09/11/2016 Comp Metabolic Cud978 K 3.6 mEq/L 09/11/2016 Comp Metabolic Rtu655 CL 102 mEq/L 09/11/2016 Comp Metabolic Ssm726 CO2 26.0 mEq/L 09/11/2016 Comp Metabolic Jnp432 ANION GAP 15 09/11/2016 Comp Metabolic Qgi693 GLUCOSE 90 mg/dL 09/11/2016 Comp Metabolic Asw589 Creat 0.6 mg/dL 09/11/2016 Comp Metabolic Yqi465 eGFR 111 ml/min/1.73m2 09/11/2016 Comp Metabolic Emo740 BUN 14 mg/dL 09/11/2016 Comp Metabolic Vgu253 B/C Ratio 23.0 Ratio 09/11/2016 Comp Metabolic Jzg829 CALCIUM 9.0 mg/dL 09/11/2016 Comp Metabolic Mno331 ALK PHOS 56 U/L 09/11/2016 Comp Metabolic Xeo166 AST(SGOT) 21 U/L 09/11/2016 Comp Metabolic Pnd125 ALT(SGPT) 17 U/L 09/11/2016 Comp Metabolic Dlx363 BILI T 0.2 mg/dL 09/11/2016 Comp Metabolic Bdo855 ALBUMIN 4.1 g/dL 09/11/2016 Comp Metabolic Ixx779 TPRO 6.5 g/dL 09/11/2016 Comp Metabolic Shn695 GLOB 2.4 g/dL 09/11/2016 Comp Metabolic Egp148 A/G Ratio 1.7 Ratio 09/11/2016 Comp Metabolic Gon237 Osmo 278 mOsmo 09/11/2016 Tsh Ord6 hTSH II 1.73 uIU/mL 09/11/2016 Cbc With Differential Ord2 WBC 11.11 K/ul 09/11/2016 Cbc With Differential Ord2 RBC 3.51 M/ul 09/11/2016 Cbc With Differential Ord2 HGB 11.6 g/dl 09/11/2016 Cbc With Differential Ord2 HCT 36.3 % 09/11/2016 Cbc With Differential Ord2 Neut% 59.8 % 09/11/2016 Cbc With Differential Ord2 Lymph% 30.2 % 09/11/2016 Cbc With Differential Ord2 MCV 103.4 fl 09/11/2016 Cbc With Differential Ord2 MCH 33.0 pg 09/11/2016 Cbc With Differential Ord2 Milam% 8.6 % 09/11/2016 Cbc With Differential Ord2 [...] 3.35 K/ul 09/11/2016 Cbc With Differential Ord2 Milam ABS# 1.0 K/ul 09/11/2016 Cbc With Differential Ord2 Eos ABS# 0.1 K/ul 09/11/2016 Cbc With Differential Ord2 Baso ABS# 0.0 K/ul 09/11/2016 Lipid Ord30 CHOL 168 mg/dL 09/11/2016 Lipid Ord30 HDL 74.0 mg/dl 09/11/2016 Lipid Ord30 TRIG 167 mg/dL 09/11/2016 Lipid Ord30 LDL 61 mg/dL 09/11/2016 Lipid Ord30 C/HDL 2.3 Ratio 09/11/2016 B12 Gwz078 B12 474.00 pg/ml 09/11/2016 B12 Joz081 B12 827.00 pg/ml 03/02/2016 Cbc With Differential [...] 34.0 pg 02/28/2016 Cbc With Differential Ord2 Milam% 5.4 % 02/28/2016 Cbc With Differential Ord2 [...] 2.08 K/ul 02/28/2016 Cbc With Differential Ord2 Milam ABS# 0.3 K/ul 02/28/2016 Cbc With Differential Ord2 Eos ABS# 0.1 K/ul 02/28/2016 Cbc With Differential Ord2 Baso ABS# 0.0 K/ul 02/28/2016 Sed Rate Ord21 ESR 5 mm/hr 02/28/2016 C-Reactive Protein Qnt Crqnt CRP 0.1 mg/dl 02/28/2016 Comp Metabolic Wga963 NA 136 mEq/L 02/28/2016 Comp Metabolic Qna919 K 4.0 mEq/L 02/28/2016 Comp Metabolic Gow936 CL 103 mEq/L 02/28/2016 Comp Metabolic Wsp596 CO2 27.0 mEq/L 02/28/2016 Comp Metabolic Gif640 ANION GAP 10 02/28/2016 Comp Metabolic Pul930 GLUCOSE 138 mg/dL 02/28/2016 Comp Metabolic Mhy609 Creat 0.6 mg/dL 02/28/2016 Comp Metabolic Miw295 eGFR 120 ml/min/1.73m2 02/28/2016 Comp Metabolic Lmm963 BUN 15 mg/dL 02/28/2016 Comp Metabolic Gpa238 B/C Ratio 26.3 Ratio 02/28/2016 Comp Metabolic Lzl218 CALCIUM 8.8 mg/dL 02/28/2016 Comp Metabolic Xpk550 ALK PHOS 58 U/L 02/28/2016 Comp Metabolic Njd143 AST(SGOT) 21 U/L 02/28/2016 Comp Metabolic Ozf358 ALT(SGPT) 21 U/L 02/28/2016 Comp Metabolic Arj142 BILI T 0.2 mg/dL 02/28/2016 Comp Metabolic Icp323 ALBUMIN 3.8 g/dL 02/28/2016 Comp Metabolic Wkl027 TPRO 5.7 g/dL 02/28/2016 Comp Metabolic Gkr744 GLOB 1.9 g/dL 02/28/2016 Comp Metabolic Bnq683 A/G Ratio 2.0 Ratio 02/28/2016 Comp Metabolic Hyt081 Osmo 275 mOsmo 02/28/2016 Tsh Ord6 hTSH II 1.25 uIU/mL 02/28/2016 B12 Swf564 B12 >1500.00 pg/ml 01/11/2016 Vitamin D 25 Oh Qrf4818 VITAMIN D, 25 HYDROXY 45.94 ng/mL Comp Metabolic Glj539 NA 136 mEq/L 03/21/2015 Comp Metabolic Pfy559 K 3.8 mEq/L 03/21/2015 Comp Metabolic Yhi080 CL 101 mEq/L 03/21/2015 Comp Metabolic Wji636 CO2 31.0 mEq/L 03/21/2015 Comp Metabolic Hzh425 ANION GAP 8 03/21/2015 Comp Metabolic Pqv239 GLUCOSE 101 mg/dL 03/21/2015 Comp Metabolic Qos812 Creat 0.7 mg/dL 03/21/2015 Comp Metabolic Sgj163 eGFR 94 ml/min/1.73m2 03/21/2015 Comp Metabolic Myu354 BUN 13 mg/dL 03/21/2015 Comp Metabolic Tzv387 B/C Ratio 18.3 Ratio 03/21/2015 Comp Metabolic Eip422 CALCIUM 9.3 mg/dL 03/21/2015 Comp Metabolic Ajy345 ALK PHOS 58 U/L 03/21/2015 Comp Metabolic Zmi017 AST(SGOT) 18 U/L 03/21/2015 Comp Metabolic Oeh346 ALT(SGPT) 22 U/L 03/21/2015 Comp Metabolic Avq220 BILI T 0.3 mg/dL 03/21/2015 Comp Metabolic Wzw735 ALBUMIN 4.4 g/dL 03/21/2015 Comp Metabolic Dos020 TPRO 6.7 g/dL 03/21/2015 Comp Metabolic Fwp438 GLOB 2.3 g/dL 03/21/2015 Comp Metabolic Lnb936 A/G Ratio 1.9 Ratio 03/21/2015 Comp Metabolic Vma155 Osmo 272 mOsmo 03/21/2015 %Hba1C Pin069 % HbA1c 33289-9 5.4 % 03/21/2015 %Hba1C Rdi523 Gluc Ave 108 mg/dL 03/21/2015 Cbc With [...] 1.32 uIU/mL 03/21/2015 URINALYSIS NONAUTO W/O SCOPE 70877 Specific [place] 1.025 DateTime(Free Text in Aprima) URINALYSIS NONAUTO W/O SCOPE 39423 PH 5.0 DateTime(Free Text in Aprima) URINALYSIS NONAUTO W/O SCOPE 53106 GLUCOSE NEG DateTime( Free Text in Aprima) URINALYSIS NONAUTO W/O SCOPE 83515 Protein NEG DateTime( Free Text in Aprima) URINALYSIS NONAUTO W/O SCOPE 86034 Blood NEG DateTime(Free Text in Aprima) URINALYSIS NONAUTO W/O SCOPE 51431 Bilirubin NEG DateTime(Free Text in Aprima) URINALYSIS NONAUTO W/O SCOPE 57254 Ketones NEG DateTime( Free Text in Aprima) URINALYSIS NONAUTO W/O SCOPE 71041 Urobilinogen NEG DateTime(Free Text in Aprima) URINALYSIS NONAUTO W/O SCOPE 82870 Nitrite NEG DateTime( Free Text in Aprima) URINALYSIS NONAUTO W/O SCOPE 62298 Leukocytes NEG DateTime(Free Text in Aprima) Review [...] retractions 02/15/2012 None Full Exam - General 1995 Respiratory respiratory effort/rhythm Overall: normal rate 02/15/2012 [...] gait 06/22/2011 None Full Exam - General 1995 [...] Procedure Codes Date THER/PROPH/DIAG INJ SC/IM CPT-4: 78213 04/05/2018 VITAMIN B12 INJECTION CPT-4: J3420 04/05/2018 THER/PROPH/DIAG INJ SC/IM CPT-4: 48965 03/10/2018 VITAMIN B12 INJECTION CPT-4: J3420 03/10/2018 THER/PROPH/DIAG INJ SC/IM CPT-4: 47974 10/19/2017 VITAMIN B12 INJECTION CPT-4: J3420 10/19/2017 URINALYSIS NONAUTO W/O SCOPE CPT-4: 58261 09/17/2017 THER/PROPH/DIAG INJ SC/IM CPT-4: 09392 08/19/2017 VITAMIN B12 INJECTION CPT-4: J3420 08/19/2017 THER/PROPH/DIAG INJ SC/IM CPT-4: 74021 07/06/2017 VITAMIN B12 INJECTION CPT-4: J3420 07/06/2017 THER/PROPH/DIAG INJ SC/IM CPT-4: 95256 04/27/2017 VITAMIN B12 INJECTION CPT-4: J3420 04/27/2017 THER/PROPH/DIAG INJ SC/IM CPT-4: 32279 11/17/2016 VITAMIN B12 INJECTION CPT-4: J3420 11/17/2016 THER/PROPH/DIAG INJ SC/IM CPT-4: 48203 10/12/2016 VITAMIN B12 INJECTION CPT-4: J3420 10/12/2016 THER/PROPH/DIAG INJ SC/IM CPT-4: 41493 09/11/2016 VITAMIN B12 INJECTION CPT-4: J3420 09/11/2016 THER/PROPH/DIAG INJ SC/IM CPT-4: 07377 07/03/2016 VITAMIN B12 INJECTION CPT-4: J3420 07/03/2016 VITAMIN B12 INJECTION CPT-4: J3420 04/20/2016 THER/PROPH/DIAG INJ SC/IM CPT-4: 01268 04/20/2016 ADMIN INFLUENZA VIRUS VAC CPT-4: G0008 03/17/2016 IIV4 FLU VACC NO PRESERV ID Formatting Model/CDA Sections, Assigned to/Ktahy Lopez CT: [id number] CPT-4: 08958Ohzaaqj 03/17/2016 THER/PROPH/DIAG INJ SC/IM CPT-4: 84853 02/13/2016 VITAMIN B12 INJECTION CPT-4: J3420 02/13/2016 URINALYSIS NONAUTO W/O SCOPE CPT-4: 75554 12/10/2015 THER/PROPH/DIAG INJ SC/IM CPT-4: 03051 12/02/2015 VITAMIN B12 INJECTION CPT-4: J3420 12/02/2015 PNEUMOCOCCAL VACC [address]: [id number] CPT-4: 38574 12/02/2015 IMMUNIZATION ADMIN CPT -4: 62556 12/02/2015 THER/PROPH/DIAG INJ SC/IM CPT-4: 72680 10/29/2015 VITAMIN B12 INJECTION CPT-4: J3420 10/29/2015 THER/PROPH/DIAG INJ SC/IM CPT-4: 65357 06/10/2015 VITAMIN B12 INJECTION CPT-4: J3420 06/10/2015 THER/PROPH/DIAG INJ SC/IM CPT-4: 03166 02/15/2014 VITAMIN B12 INJECTION CPT-4: J3420 02/15/2014 TRIAMCINOLONE ACET INJ NOS CPT-4: J3301 01/15/2014 VITAMIN B12 INJECTION CPT-4: J3420 01/15/2014 THER/PROPH/DIAG INJ SC/IM CPT-4: 13748 12/04/2013 VITAMIN B12 INJECTION CPT-4: J3420 12/04/2013 THER/PROPH/DIAG INJ SC/IM CPT-4: 34494 07/24/2013 VITAMIN B12 INJECTION CPT-4: J3420 07/24/2013 PRESCRIP TRANSMIT VIA ERX SY CPT-4: G8553 06/12/2013 VITAMIN B12 INJECTION CPT-4: J3420 05/10/2013 THER/PROPH/DIAG INJ SC/IM CPT-4: 65461 05/10/2013 TRIAMCINOLONE ACET INJ NOS CPT-4: J3301 03/06/2013 PRESCRIP TRANSMIT VIA ERX SY CPT-4: G8553 03/06/2013 ADMIN INFLUENZA VIRUS VAC CPT-4: G0008 02/20/2013 FLULAVAL VACC, 3 YRS & >, IM CPT-4: Q2036 02/20/2013 THER/PROPH/DIAG INJ SC/IM CPT-4: 05343 02/20/2013 VITAMIN B12 INJECTION CPT-4: J3420 02/20/2013 THER/PROPH/DIAG INJ SC/IM CPT-4: 22985 12/26/2012 TRIAMCINOLONE ACET INJ NOS CPT-4: J3301 12/26/2012 THER/PROPH/DIAG INJ SC/IM CPT-4: 98554 12/21/2012 VITAMIN B12 INJECTION CPT-4: J3420 12/21/2012 THER/PROPH/DIAG INJ SC/IM CPT-4: 01126 11/16/2012 VITAMIN B12 INJECTION CPT-4: J3420 11/16/2012 TB INTRADERMAL TEST (includes injection fee) CPT-4: 30663 09/26/2012 THER/PROPH/DIAG INJ SC/IM CPT-4: 88152 09/12/2012 VITAMIN B12 INJECTION CPT-4: J3420 09/12/2012 TRIAMCINOLONE ACET INJ NOS CPT-4: J3301 08/11/2012 VITAMIN B12 INJECTION CPT-4: J3420 08/11/2012 THER/PROPH/DIAG INJ SC/IM CPT-4: 12798 08/11/2012 VITAMIN B12 INJECTION CPT-4: J3420 07/13/2012 THER/PROPH/DIAG INJ SC/IM CPT-4: 49414 07/13/2012 THER/PROPH/DIAG INJ SC/IM CPT-4: 66288 05/26/2012 TRIAMCINOLONE ACET INJ NOS CPT-4: J3301 05/26/2012 VITAMIN B12 INJECTION CPT-4: J3420 05/26/2012 ADMIN INFLUENZA VIRUS VAC CPT-4: G0008 03/02/2012 FLULAVAL VACC, 3 YRS & >, IM CPT-4: Q2036 03/02/2012 PRESCRIP TRANSMIT VIA ERX SY CPT-4: G8553 02/15/2012 TRIAMCINOLONE ACET INJ NOS CPT-4: J3301 01/13/2012 VITAMIN B12 INJECTION CPT-4: J3420 12/21/2011 VITAMIN B12 INJECTION CPT-4: J3420 10/30/2011 THER/PROPH/DIAG INJ SC/IM CPT-4: 99745 10/30/2011 THER/PROPH/DIAG INJ SC/IM CPT-4: 15569 10/02/2011 VITAMIN B12 INJECTION CPT-4: J3420 10/02/2011 TRIAMCINOLONE ACET INJ NOS CPT-4: J3301 10/02/2011 PRESCRIP TRANSMIT VIA ERX SY CPT-4: G8553 10/02/2011 VITAMIN B12 INJECTION CPT-4: J3420 09/01/2011 URINALYSIS NONAUTO W/O SCOPE CPT-4: 09655 08/03/2011 VITAMIN B12 INJECTION CPT-4: J3420 08/03/2011 THER/PROPH/DIAG INJ SC/IM CPT-4: 31440 08/03/2011 THER/PROPH/DIAG INJ SC/IM CPT-4: 41742 06/11/2011 VITAMIN B12 INJECTION CPT-4: J3420 06/11/2011 ROUTINE VENIPUNCTURE CPT-4: 43390 06/11/2011 THER/PROPH/DIAG INJ SC/IM CPT-4: 35919 02/23/2011 VITAMIN B12 INJECTION CPT-4: J3420 02/23/2011 ADMIN INFLUENZA VIRUS VAC CPT-4: G0008 02/23/2011 FLULAVAL VACC, 3 YRS & >, IM CPT-4: Q2036 02/23/2011 Vital Signs Date Vital 06/16/2018 Blood Pressure 1: 132/78 Code : 8480-6 Heart Rate 1: 120 bpm Height: 5'9" SpO2: 98% Weight: 06/01/2018 Blood Pressure 1: 138/70 Code : 8480-6 BMI: 30.9 Code : 17081-4 Heart Rate 1 : 120 bpm Height: 5'9" Respiratory Rate: 18 bpm SpO2: 96% Weight: 209 lbs 04/05/2018 Blood Pressure 1: 144/80 Code : 8480-6 BMI: 30.9 Code : 08325-1 Heart Rate 1 : 118 bpm Height: 5'9" SpO2: 98% Weight: 209 lbs 03/10/2018 Blood Pressure 1: 162/74 Code : 8480-6 Blood Pressure 1: 128/82 Code: 8480-6 BMI: 30.3 Code: 87363-3 Heart Rate 1: 101 bpm Height: 5'9" SpO2: 98% Weight: 205 lbs 01/13/2018 Blood Pressure 1: 102/78 Code : 8480-6 BMI: 31.6 Code : 95648-3 Heart Rate 1 : 103 bpm Height: 5'9" SpO2: 98% Weight: 214 lbs 11/25/2017 Blood Pressure 1: 114/80 Code : 8480-6 BMI: 30.3 Code : 62845-9 Heart Rate 1 : 112 bpm Height: 5'9" SpO2: 98% Weight: 205 lbs 10/19/2017 Blood Pressure 1: 110/70 Code : 8480-6 BMI: 30.7 Code : 40934-3 Heart Rate 1 : 102 bpm Height: 5'9" SpO2: 97% Weight: 208 lbs 09/17/2017 Blood Pressure 1: 132/78 Code : 8480-6 BMI: 30.4 Code : 56553-3 Heart Rate 1 : 117 bpm Height: 5'9" SpO2: 97% Weight: 206 lbs 09/06/2017 Blood Pressure 1: 110/78 Code : 8480-6 BMI: 29.8 Code : 12812-1 Heart Rate 1 : 106 bpm Height: 5'9" SpO2: 97% Weight: 202 lbs 08/19/2017 Blood Pressure 1: 136/72 Code : 8480-6 BMI: 30.4 Code : 66686-2 Heart Rate 1 : 108 bpm Height: 5'9" SpO2: 94% Weight: 206 lbs 07/06/2017 Blood Pressure 1: 154/80 Code : 8480-6 Heart Rate 1: 111 bpm Height: 5'9" Respiratory Rate: 20 bpm SpO2: 98% Weight: 04/27/2017 Blood Pressure 1: 138/78 Code : 8480-6 BMI: 30.4 Code : 88197-2 Heart Rate 1 : 96 bpm Height: 5'9" SpO2: 97% Weight: 206 lbs 04/06/2017 Blood Pressure 1: 108/80 Code : 8480-6 BMI: 31.0 Code : 30097-1 Heart Rate 1 : 96 bpm Height: 5'9" SpO2: 98% Weight: 210 lbs 02/25/2017 Blood Pressure 1: 132/80 Code : 8480-6 BMI: 32.5 Code : 10336-2 Heart Rate 1 : 112 bpm Height: 5'9" SpO2: 94% Weight: 220 lbs 01/19/2017 Blood Pressure 1: 122/68 Code : 8480-6 Heart Rate 1: 100 bpm Height: 5'9" SpO2: 95% Weight: 11/17/2016 Blood Pressure 1: 132/74 Code : 8480-6 BMI: 32.2 Code : 88314-9 Heart Rate 1 : 98 bpm Height: 5'9" SpO2: 94% Weight: 218 lbs 10/12/2016 Blood Pressure 1: 130/82 Code : 8480-6 BMI: 32.2 Code : 51570-9 Heart Rate 1 : 97 bpm Height: 5'9" SpO2: 94% Weight: 218 lbs 08/18/2016 Blood Pressure 1: 132/78 Code : 8480-6 BMI: 32.0 Code : 25409-6 Heart Rate 1 : 113 bpm Height: 5'9" SpO2: 98% Weight: 217 lbs 08/07/2016 Blood Pressure 1: 126/70 Code : 8480-6 BMI: 33.1 Code : 76644-7 Heart Rate 1 : 102 bpm Height: 5'9" SpO2: 94% Weight: 224 lbs 07/31/2016 Blood Pressure 1: 134/66 Code : 8480-6 BMI: 31.7 Code : 95184-0 Heart Rate 1 : 97 bpm Height: 5'9" SpO2: 95% Temperature: 36.4 (C) / 97.6 (F) Weight: 215 lbs 07/15/2016 Blood Pressure 1: 126/62 Code : 8480-6 Heart Rate 1: 105 bpm Height: 5'9" Weight: 07/07/2016 Blood Pressure 1: 106/54 Code : 8480-6 BMI: 31.7 Code : 52189-1 Heart Rate 1 : 93 bpm Height: 5'9" SpO2: 97% Weight: 215 lbs 06/25/2016 Heart Rate 1: 99 bpm Height: 5'9" SpO2: 95% Weight: 05/07/2016 Blood Pressure 1: 124/86 Code : 8480-6 BMI: 28.5 Code : 97713-6 Heart Rate 1 : 100 bpm Height: 5'9" SpO2: 96% Weight: 193 lbs 04/20/2016 Blood Pressure 1: 120/80 Code : 8480-6 BMI: 28.5 Code : 57309-5 Heart Rate 1 : 86 bpm Height: 5'9" SpO2: 96% Weight: 193 lbs 03/17/2016 Blood Pressure 1: 120/70 Code : 8480-6 BMI: 29.1 Code : 83448-3 Heart Rate 1 : 103 bpm Height: 5'9" SpO2: 96% Weight: 197 lbs 03/05/2016 Blood Pressure 1: 124/78 Code : 8480-6 Heart Rate 1: 82 bpm Height: 5'9" SpO2: 94% Weight: 02/28/2016 Blood Pressure 1: 94/50 Code : 8480-6 Heart Rate 1: 91 bpm Height: 5'9" SpO2: 94% Weight: 02/13/2016 Blood Pressure 1: 128/86 Code : 8480-6 BMI: 28.6 Code : 98157-0 Heart Rate 1 : 100 bpm Height: 5'9" SpO2: 96% Weight: 194 lbs 08/15/2015 Blood Pressure 1: 128/68 Code : 8480-6 BMI: 27.3 Code : 24502-0 Heart Rate 1 : 72 bpm Height: 5'9" SpO2: 92% Weight: 185 lbs 07/25/2015 Blood Pressure 1: 122/76 Code : 8480-6 BMI: 27.5 Code : 82092-5 Heart Rate 1 : 70 bpm Height: 5'9" SpO2: 94% Weight: 186 lbs 06/25/2015 Blood Pressure 1: 118/54 Code : 8480-6 BMI: 26.7 Code : 99401-2 Heart Rate 1 : 98 bpm Height: 5'9" SpO2: 97% Weight: 181 lbs 06/10/2015 Blood Pressure 1: 110/68 Code : 8480-6 Heart Rate 1: 80 bpm Height: SpO2: 98% Weight: 05/08/2015 Blood Pressure 1: 120/68 Code : 8480-6 BMI: 27.5 Code : 84364-2 Heart Rate 1 : 95 bpm Height: 5'9" SpO2: 96% Weight: 186 lbs 03/26/2015 Blood Pressure 1: 120/80 Code : 8480-6 Heart Rate 1: 102 bpm Respiratory Rate: 18 bpm SpO2: 92% Weight: 186 lbs 03/15/2015 Blood Pressure 1: 122/64 Code : 8480-6 BMI: 26.6 Code : 49927-6 Heart Rate 1 : 96 bpm Height: 5'9" SpO2: 96% Weight: 180 lbs 01/10/2015 Blood Pressure 1: 120/68 Code : 8480-6 BMI: 27.5 Code : 61081-4 Heart Rate 1 : 90 bpm Height: 5'9" Weight: 186 lbs 12/21/2014 Blood Pressure 1: 118/78 Code : 8480-6 BMI: 27.2 Code : 48363-0 Heart Rate 1 : 61 bpm Height: 5'9" SpO2: 97% Weight: 184 lbs 10/05/2014 Blood Pressure 1: 118/64 Code : 8480-6 BMI: 27.0 Code : 93418-8 Heart Rate 1 : 76 bpm Height: 5'9" Weight: 183 lbs 06/14/2014 Blood Pressure 1: 120/78 Code : 8480-6 BMI: 26.6 Code : 35722-4 Heart Rate 1 : 96 bpm Height: 5'9" Weight: 180 lbs 01/19/2014 Blood Pressure 1: 128/76 Code : 8480-6 BMI: 27.3 Code : 11198-2 Heart Rate 1 : 82 bpm Height: 5'9" Weight: 185 lbs 01/15/2014 Blood Pressure 1: 110/62 Code : 8480-6 BMI: 27.9 Code : 07525-7 Heart Rate 1 : 80 bpm Height: 5'9" Weight: 189 lbs 10/20/2013 Blood Pressure 1: 11262 Code : 8480-6 BMI: 30.1 Code : 23796-6 Heart Rate 1 : 76 bpm Height: [...] Code : 8480-6 BMI: 30.6 Code : 62847-1 Heart Rate 1 : 92 bpm Height: 5'9" Weight: 207 lbs 05/23/2013 Blood Pressure 1: 120/78 Code : 8480-6 Heart Rate 1: 84 bpm Weight: 05/19/2013 Blood Pressure 1: 126/78 Code : 8480-6 BMI: 30.3 Code : 38208-1 Heart Rate 1 : 88 bpm Height: 5'9" Weight: 205 lbs 05/16/2013 Blood Pressure 1: 126/66 Code : 8480-6 BMI: 30.3 Code : 36919-2 Heart Rate 1 : 84 bpm Height: 5'9" Weight: 205 lbs 03/06/2013 Blood Pressure 1: 128/76 Code : 8480-6 BMI: 30.6 Code : 26602-1 Heart Rate 1 : 88 bpm Height: 5'9" Weight: 207 lbs 12/26/2012 Blood Pressure 1: 142/70 Code : 8480-6 BMI: 29.6 Code : 14689-8 Heart Rate 1 : 100 bpm Height: 5'9" Weight: 200 lbs 8 oz 11/21/2012 Blood Pressure 1: 132/80 Code : 8480-6 BMI: 29.5 Code : 08432-5 Heart Rate 1 : 96 bpm Height: [...] Code : 8480-6 BMI: 29.2 Code : 35130-9 Heart Rate 1 : 64 bpm Height: 5'9" Respiratory Rate: 16 bpm Weight: 198 lbs 03/11/2011 Blood Pressure 1: 106/60 Code : 8480-6 BMI: 28.8 Code : 49593-7 Heart Rate 1 : 100 bpm Height: 5'9" SpO2: 97% Weight: 195 lbs 02/12/2011 Weight: 192 lbs 01/29/2011 Blood Pressure 1: 100/64 Code : 8480-6 BMI: 28.1 Code : 95184-6 Heart Rate 1 : 100 bpm Height: [...] Hospital Follow Up _ pain 05/16/2013 left [id number]-[id number]-vdivj to left knee-applying neosporin and covering with [...] pt to have a study done at [id number] shortness of breath Triggers exertion 03/11/2011 None [...] 02/12/2011 and 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 PATIENT, LEVEL III Diagnosis: Acute upper respiratory infection, unspecified[ICD10: J06.9] Diagnosis: Generalized anxiety disorder[ICD10: F41.1] Valentina Thompson MD, [facility] CPT-4: 44299 06/16/2018 [id number]) [id number] EST. PATIENT, LEVEL IV Diagnosis: Chronic pain syndrome[ICD10: G89.4] Diagnosis: Generalized anxiety disorder[ICD10: F41.1] Diagnosis: Low back pain[ICD10: M54.5] Diagnosis: Essential (primary) hypertension[ICD10: I10] Aicha Thompson MD, [facility] CPT-4: 50289 06/01/2018 ([id number]) 06867 EST. PATIENT, LEVEL IV Diagnosis: Essential (primary) hypertension[ICD10: I10] Diagnosis: Chronic pain syndrome[ICD10: G89.4] Diagnosis: Vitamin B12 deficiency anemia due to intrinsic factor deficiency[ ICD10: D51.0] Aicha Thompson MD, [facility] CPT-4: 96820 04/05/2018 ([id number]) 13647 EST. PATIENT, LEVEL IV Diagnosis: Essential (primary) hypertension[ICD10: I10] Diagnosis: Generalized anxiety disorder[ICD10: F41.1] Diagnosis: Major depressive disorder, recurrent, mild[ICD10: F33.0] Diagnosis: Vitamin B12 deficiency anemia due to intrinsic factor deficiency[ ICD10: D51.0] Valentina Thompson MD, [facility] CPT-4: 33306 03/10/2018 ([id number]) 06810 EST. PATIENT, LEVEL IV Diagnosis: Headache[ICD10: R51] Diagnosis: Obstructive sleep apnea (adult) (pediatric)[ICD10: G47.33] Diagnosis: Cervicalgia[ICD10: M54.2] Valentina Thompson MD, [facility] CPT-4: 57206 01/13/2018 ([id number]) 38489 EST. PATIENT, LEVEL IV Diagnosis: Headache[ICD10: R51] Diagnosis: Spinal stenosis, cervical region[ICD10: M48.02] Diagnosis: Major depressive disorder, recurrent, mild[ICD10: F33.0] Valentina Thompson MD , [facility] CPT-4: 29868 11/25/2017 ([id number]) 01839 EST. PATIENT, LEVEL III Diagnosis: Allergic contact dermatitis due to plants, except food[ICD10: L23.7] Diagnosis: Vitamin B12 deficiency anemia due to intrinsic factor deficiency[ ICD10: D51.0] Valentina Thompson MD, [facility] CPT-4: 65500 10/19/2017 ([id number]) 27998 EST. PATIENT, LEVEL IV Diagnosis: Generalized abdominal pain[ICD10: R10.84] Diagnosis: Urinary tract infection, site not specified[ICD10: N39.0] Diagnosis: Hypokalemia[ICD10: E87.6] Valentina Thompson MD, [facility] CPT-4: 31960 09/17/2017 ([id number]) 30366 EST. PATIENT, LEVEL IV Diagnosis: Chronic pain syndrome[ICD10: G89.4] Diagnosis: Pain in left knee[ICD10: M25.562] Diagnosis: Pain in right knee[ICD10: M25.561] Diagnosis: Essential (primary) hypertension[ICD10: I10] Aicha Thompson MD, [facility] CPT-4: 02826 09/06/2017 ([id number]) 73131 EST. PATIENT, LEVEL IV Diagnosis: Headache[ICD10: R51] Diagnosis: Chronic pain syndrome[ICD10: G89.4] Diagnosis: Mixed hyperlipidemia[ICD10: E78.2] Diagnosis: Vitamin D deficiency, unspecified[ICD10: E55.9] Diagnosis: Vitamin B12 deficiency anemia, unspecified[ICD10: D51.9] Valentina Thompson MD , [facility] CPT-4: 43932 08/19/2017 91009 EST. PATIENT, LEVEL V Diagnosis: Essential (primary) hypertension[ICD10: I10] Diagnosis: Vitamin B12 deficiency anemia due to intrinsic factor deficiency[ ICD10: D51.0] Diagnosis: Chronic pain syndrome[ICD10: G89.4] Aicha hTompson MD, [facility] CPT-4: 35276 07/06/2017 ([id number]) 57028 EST. PATIENT, LEVEL IV Diagnosis: Cervicalgia[ICD10: M54.2] Diagnosis: Laceration without foreign body of scalp, initial encounter[ICD10: S01.01XA] Diagnosis: Vitamin B12 deficiency anemia due to intrinsic factor deficiency[ ICD10: D51.0] Valentina Thompson MD, [facility] CPT-4: 30019 04/27/2017 94727 EST. PATIENT, LEVEL II Diagnosis: Residual hemorrhoidal skin tags[ICD10: K64.4] Valentina Thompson MD, [facility] CPT-4: 82008 04/06/2017 ([id number]) 20935 EST. PATIENT, LEVEL III Diagnosis: Pain in right foot[ICD10: M79.671] Diagnosis: Pain in left foot[ICD10: M79.672] Diagnosis: Cervicalgia[ICD10: M54.2] Valentina Thompson MD, [facility] CPT-4: 58575 02/25/2017 ([id number]) 17990 EST. PATIENT, LEVEL IV Diagnosis: Essential (primary) hypertension[ICD10: I10] Diagnosis: Chronic pain syndrome[ICD10: G89.4] Diagnosis: Spinal stenosis, cervical region[ICD10: M48.02] Diagnosis: Pain in right leg[ICD10: M79.604] Valentina Thompson MD, [facility] CPT-4: 86733 01/19/2017 ([id number]) 19292 EST. PATIENT, LEVEL III Diagnosis: Pain in right foot[ICD10: M79.671] Diagnosis: Pain in left foot[ICD10: M79.672] Diagnosis: Chronic pain syndrome[ICD10: G89.4] Diagnosis: Vitamin B12 deficiency anemia, unspecified[ICD10: D51.9] Valentina Thompson MD , [facility] CPT-4: 35331 11/17/[id number]) 69140 EST. PATIENT, LEVEL IV Diagnosis: Essential (primary) hypertension[ICD10: I10] Diagnosis: Chronic pain syndrome[ICD10: G89.4] Diagnosis: Foot drop, right foot[ICD10: M21.371] Diagnosis: Foot drop, left foot[ICD10: M21.372] Diagnosis: Other abnormalities of gait and mobility[ICD10: R26.89] Diagnosis: Vitamin B12 deficiency anemia due to intrinsic factor deficiency[ ICD10: D51.0] Aicha Thompson MD, [facility] CPT-4: 88083 10/12/2016 ([id number]) 92215 EST. PATIENT, LEVEL III Diagnosis: Pain in right ankle and joints of right foot[ICD10: M25.571] Diagnosis: Superficial foreign body, right foot, initial encounter[ICD10: S90.851A] Valentina Thompson MD, [facility] CPT-4: 49877 ([id number]) 55543 EST. PATIENT, LEVEL III Diagnosis: Candidiasis of vulva and vagina[ICD10: B37.3] Diagnosis: Vitamin B12 deficiency anemia, unspecified[ICD10: D51.9] Valentina Thompson MD , [facility] CPT-4: 98939 08/07/2016 ([id number]) 78444 EST. PATIENT, LEVEL III Diagnosis: Spinal stenosis, cervical region[ICD10: M48.02] Diagnosis: Pain in right ankle and joints of right foot[ICD10: M25.571] Diagnosis: Pain in left ankle and joints of left foot[ICD10: M25.572] Valentina Thompson MD, [facility] CPT-4: 25691 07/31/2016 62052 EST. PATIENT, LEVEL III Diagnosis: Cervicalgia[ICD10: M54.2] Diagnosis: Chronic pain syndrome[ICD10: G89.4] Beatriz Thompson MD, [facility] CPT-4: 64688 07/15/2016 ([id number]) 37666 EST. PATIENT, LEVEL III Diagnosis: Spinal stenosis, cervical region[ICD10: M48.02] Diagnosis: Low back pain[ICD10: M54.5] Valentina Thompson MD, [facility] CPT-4: 55186 07/07/2016 ([id number]) 65105 EST. PATIENT, LEVEL IV Diagnosis: Cervicalgia[ICD10: M54.2] Diagnosis: Essential (primary) hypertension[ICD10: I10] Diagnosis: Mixed hyperlipidemia[ICD10: E78.2] Aicha Thompson MD, [facility] CPT-4: 02177 06/25/2016 ([id number]) 12916 EST. PATIENT, LEVEL III Diagnosis: Cervicalgia[ICD10: M54.2] Valentina Thompson MD, [facility] CPT-4: 71703 05/07/2016 ([id number]) 28954 EST. PATIENT, LEVEL III Diagnosis: Pleurodynia[ICD10: R07.81] Diagnosis: Generalized anxiety disorder[ICD10: F41.1] Diagnosis: Vitamin B12 deficiency anemia due to intrinsic factor deficiency[ ICD10: D51.0] Diagnosis: Hypoxemia[ICD10: R09.02] Valentina Thompson MD, [facility] CPT-4: 54077 04/20/2016 ([id number]) 94504 EST. PATIENT, LEVEL III Diagnosis: Generalized anxiety disorder[ICD10: F41.1] Diagnosis: Radiculopathy, lumbar region[ICD10: M54.16] Valentina Thompson MD, [facility] CPT-4: 57041 03/17/2016 04773 EST. PATIENT, LEVEL IV Diagnosis: Chronic pain syndrome[ICD10: G89.4] Diagnosis: Radiculopathy, lumbar region[ICD10: M54.16] Diagnosis: Generalized anxiety disorder[ICD10: F41.1] Beatriz Thompson MD, [facility] CPT-4: 72909 03/05/2016 ([id number]) 19633 EST. PATIENT, LEVEL III Diagnosis: Radiculopathy, lumbar region[ICD10: M54.16] Diagnosis: Generalized anxiety disorder[ICD10: F41.1] Valentina Thompson MD, [facility] CPT-4: 27555 02/28/2016 ([id number]) 91630 EST. 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 PATIENT, LEVEL III Diagnosis: Headache[ICD10: R51] Diagnosis: Cervicalgia[ICD10: M54.2] Valentina Thompson MD [facility] CPT-4: 20652 08/15/2015 [id number] 03560 EST. PATIENT, LEVEL III Diagnosis: Generalized anxiety disorder[ICD10: F41.1] Diagnosis: Cervicalgia[ICD10: M54.2] Valentina Thompson MD, [facility] CPT-4: 82324 07/25/2015 ([id number]) 43260 EST. PATIENT, LEVEL IV Diagnosis: Pain in right foot[ICD10: M79.671] Diagnosis: Unspecified osteoarthritis, unspecified site[ICD10: M19.90] Diagnosis: Pain in left ankle and joints of left foot[ICD10: M25.572] Diagnosis: Pain in right ankle and joints of right foot[ICD10: M25.571] Valentina Thompson MD, [facility] CPT-4: 42942 06/25/2015 ([id number]) 83750 EST. PATIENT, LEVEL IV Diagnosis: Essential (primary) hypertension[ICD10: I10] Diagnosis: Pain in left ankle and joints of left foot[ICD10: M25.572] Diagnosis: Chronic pain syndrome[ICD10: G89.4] Diagnosis: 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 malabsorption with proteinuria[ICD10: D51.1] Valentina Thompson MD, [facility] CPT-4: 60672 06/10/2015 ([id number]) Miscellaneous no charge Diagnosis: Dysuria[ICD10: R30.0] Aicha Thompson MD, [facility] CPT-4: 68897 05/16/2015 ([id number]) 26291 EST. PATIENT, LEVEL IV Diagnosis: Essential (primary) hypertension[ICD10: I10] Diagnosis: Pain in right foot[ICD10: M79.671] Diagnosis: Pain in left foot[ICD10: M79.672] Diagnosis: Anxiety disorder, unspecified[ICD10: F41.9] Aicha Thompson MD, [facility] CPT-4: 45298 05/08/2015 ([id number]) 44806 EST. 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 PATIENT, LEVEL III Diagnosis: Chronic pain syndrome[ICD10: G89.4] Diagnosis: Unspecified osteoarthritis, unspecified site[ICD10: M19.90] Diagnosis: Pain in right foot[ICD10: M79.671] Diagnosis: Pain in left foot[ICD10: M79.672] Beatriz Thompson MD, [facility] CPT -4: 27711 03/15/2015 ([id number]) 50948 EST. PATIENT, LEVEL III Diagnosis: Abrasion of knee, left[ICD9: 916.0] Valentina Thompson MD, [facility] CPT-4: 83506 01/10/2015 ([id number]) 65189 EST. PATIENT, LEVEL IV Diagnosis: CHRONIC PAIN SYNDROME[ICD9: 338.4] Diagnosis: MYALGIA AND MYOSITIS[ICD9: 729.1] Diagnosis: OSTEOARTH NOS-UNSPEC[ICD9: 715.90] Diagnosis: DEPRESSIVE DISORDER NEC[ICD9: 311] Diagnosis: GENERALIZED ANXIETY DISEASE[ICD9: 300.02] Valentina Thompson MD, [facility] CPT-4: 33006 12/21/2014 ([id number]) 55026 EST. PATIENT, LEVEL IV Diagnosis: GENERALIZED ANXIETY DISEASE[ICD9: 300.02] Diagnosis: DEPRESSIVE DISORDER NEC[ICD9: 311] Diagnosis: ESSENTIAL HYPERTENSION[ICD9: 401.9] [facility] CPT-4: 75911 10/05/2014 ([id number]) 99738 EST. PATIENT, LEVEL III Diagnosis: Knee pain, right[ICD9: 719.46] Diagnosis: CHRONIC PAIN SYNDROME[ICD9: 338.4] Diagnosis: Ankle pain[ICD9: 719.47] Aicha Thompson MD, [facility] CPT-4: 86449 06/14/2014 ([id number]) 34355 EST. PATIENT, LEVEL III Diagnosis: Constipation[ICD9: 564.00] Diagnosis: Hemorrhoids[ICD9: 455.6] Valentina Thompson MD [facility] CPT-4: 06403 01/19/2014 ([id number]) 72690 EST. PATIENT, LEVEL III Diagnosis: Ulcer of knee[ICD9: 707.19] Diagnosis: Hemorrhoids[ICD9: 455.6] Diagnosis: B12 deficiency[ICD9: 266.2] Diagnosis: ALLERGIC RHINITIS[ICD9: 477.9] Valentina Thompson MD [facility] CPT-4: 80538 01/15/2014 ([id number]) 81659 EST. PATIENT, LEVEL IV Diagnosis: EDEMA[ICD9: 782.3] Diagnosis: Open wound of knee[ICD9: 891.0] Diagnosis: CHRONIC PAIN SYNDROME[ICD9: 338.4] Diagnosis: ANEMIA[ICD9: 285.9] Valentina Thompson MD [facility] CPT-4: 80380 10/20/2013 ([id number]) 24266 EST. PATIENT, LEVEL III Diagnosis: ULCER OTH PART LOW LIMB[ICD9: 707.19] Valentina Thompson MD [facility] CPT-4: 13919 07/24/2013 ([id number]) 03831 EST. PATIENT, LEVEL III Diagnosis: ULCER OTH PART LOW LIMB[ICD9: 707.19] Valentina Thompson MD [facility] CPT-4: 70223 06/23/2013 ([id number]) 77094 EST. PATIENT, LEVEL III Diagnosis: ULCER OTH PART LOW LIMB[ICD9: 707.19] Valentina Thompson MD [facility] CPT-4: 21951 06/12/2013 ([id number]) Miscellaneous no charge Diagnosis: ULCER OTH PART LOW LIMB[ICD9: 707.19] Valentina Thompson MD, [facility] CPT-4: 10742 05/29/2013 ([id number]) 94932 EST. PATIENT, LEVEL III Diagnosis: ULCER OTH PART LOW LIMB[ICD9: 707.19] Valentina Thompson MD [facility] CPT-4: 16900 05/23/2013 ([id number]) Miscellaneous no charge Diagnosis: ULCER OTH PART LOW LIMB[ICD9: 707.19] Valentina Thompson MD [facility] CPT-4: 78094 05/19/2013 ([id number]) 34205 EST. PATIENT, LEVEL III Diagnosis: Ulcer of knee[ICD9: 707.19] Valentina Thompson MD [facility] CPT-4: 66831 05/16/2013 ([id number]) 46743 EST. PATIENT, LEVEL III Diagnosis: ALLERGIC RHINITIS[ICD9: 477.9] Aicha Thompson MD [facility] CPT- 4: 48281 03/06/2013 ([id number]) 58378 EST. PATIENT, LEVEL IV Diagnosis: Ankle pain[ICD9: 719.47] Diagnosis: ALLERGIC RHINITIS[ICD9: 477.9] Diagnosis: ESSENTIAL HYPERTENSION[SNOMED: 52370053] Aicha Thompson MD [facility] CPT-4: 53710 12/26/2012 ([id number]) 65148 EST. PATIENT, LEVEL IV Diagnosis: ESSENTIAL HYPERTENSION[SNOMED: 91405922] Diagnosis: JOINT PAIN-L/LEG[ICD9: 719.46] Diagnosis: GENERALIZED ANXIETY DISEASE[ICD9: 300.02] Diagnosis: UNSPECIFIED ASTHMA[ICD9: 493.90] Aicha Thompson MD [facility] CPT-4: 40057 11/21/2012 ([id number]) Miscellaneous no charge Diagnosis: Encounter for tuberculin skin test[ICD9: V74.1] Aicha Thompson MD [facility] CPT-4: 10566 09/28/2012 ([id number]) 31051 EST. PATIENT, LEVEL IV Diagnosis: FEVER NOS[ICD9: 780.60] Diagnosis: PNEUMONIA (CAP)[ICD9: 486] Aicha Thompson MD [facility] CPT- 4: 68328 07/21/2012 ([id number]) 30422 EST. PATIENT, LEVEL IV Diagnosis: JOINT PAIN-ANKLE[ICD9: 719.47] Diagnosis: MUSCLE/LIGAMENT DIS NEC[ICD9: 728.89] Diagnosis: Fibromyalgia muscle pain[ICD9: 729.1] [facility] CPT-4: 63318 07/13/2012 ([id number]) 94533 EST. PATIENT, LEVEL IV Diagnosis: Right foot pain[ICD9: 729.5] Diagnosis: Plantar fasciitis[ICD9: 728.71] Diagnosis: GENERALIZED ANXIETY DISEASE[ICD9: 300.02] Diagnosis: B-COMPLEX DEFIC NEC[ICD9: 266.2] Aicha Thompson MD, [facility] CPT-4: 45124 05/26/2012 ([id number]) 20132 EST. PATIENT, LEVEL IV Diagnosis: Chest wall pain[ICD9: 786.52] Diagnosis: Esophageal reflux[ICD9: 530.81] Diagnosis: ALLERGIC RHINITIS[ICD9: 477.9] Valentina Thompson MD, [facility] CPT-4: 23336 02/15/2012 ([id number]) 62316 EST. PATIENT, LEVEL IV Diagnosis: ALLERGIC RHINITIS[ICD9: 477.9] Diagnosis: HYPERLIPIDEMIA[ICD9: 272.4] Aicha Thompson MD, [facility] CPT- 4: 65356 01/13/2012 ([id number]) 19951 EST. PATIENT, LEVEL IV Diagnosis: JOINT PAIN-L/LEG[ICD9: 719.46] Diagnosis: UNSPECIFIED ASTHMA[ICD9: 493.90] Diagnosis: Costalchondritis[ICD9: 733.6] Aicha Thompson MD, [facility] CPT- 4: 79502 12/21/2011 ([id number]) 05897 EST. PATIENT, LEVEL IV Diagnosis: Hyperlipidemia[ICD9: 272.4] Diagnosis: ALLERGIC RHINITIS[ICD9: 477.9] Diagnosis: B12 deficiency[ICD9: 266.2] Diagnosis: Hypopotassemia[ICD9: 276.8] Valentina Thompson MD, [facility] CPT-4: 90565 10/02/2011 ([id number]) 90243 EST. PATIENT, LEVEL IV Diagnosis: Pain in joint involving forearm[ICD9: 719.43] Diagnosis: Neck pain[ICD9: 723.1] Diagnosis: Fall on same level from slipping, tripping, or stumbling[ICD9: E885.9 ] Diagnosis: B12 deficiency[ICD9: 266.2] Aicha Thompson [facility] CPT- 4: 69616 09/01/2011 ([id number]) 75152 EST. PATIENT, LEVEL IV Diagnosis: Vulvovaginitis[ICD9: 616.10] Diagnosis: OVERWEIGHT[ICD9: 278.02] Diagnosis: MYALGIA AND MYOSITIS[ICD9: 729.1] Aicha Thompson MD [facility] CPT-4: 55446 08/03/2011 ([id number]) 46899 EST. PATIENT, LEVEL IV Diagnosis: MUSCLE/LIGAMENT DIS NEC[ICD9: 728.89] Diagnosis: CHRONIC PAIN SYNDROME[ICD9: 338.4] Diagnosis: Weight gain[ICD9: 783.1] Aicha Thompson MD, [facility] CPT-4: 07771 06/29/2011 97467 EST. PATIENT, LEVEL IV Diagnosis: Wrist pain[ICD9: 719.43] Diagnosis: Knee pain, right[ICD9: 719.46] Diagnosis: Fall on same level from slipping, tripping, or stumbling[ICD9: E885.9 ] Aicha Thompson MD, [facility] CPT-4: 04886 06/22/2011 53408 EST. PATIENT, LEVEL IV Diagnosis: MUSCLE/LIGAMENT DIS NEC[ICD9: 728.89] Diagnosis: JOINT PAIN-L/LEG[ICD9: 719.46] Diagnosis: OSTEOARTH NOS-UNSPEC[ICD9: 715.90] Diagnosis: B12 deficiency[ICD9: 266.2] Aicha Thompson MD, [facility] CPT- 4: 02231 06/11/2011 84947 EST. 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 PATIENT, LEVEL IV Diagnosis: Knee pain, bilateral[ICD9: 719.46] Diagnosis: Iliotibial band syndrome[ICD9: 728.89] Diagnosis: Fibromyalgia syndrome[ICD9: 729.1] [facility] CPT-4: 75635 02/12/2011 92762 EST. PATIENT, LEVEL IV Diagnosis: FALL FROM SLIPPING[ICD9: E885.9] Diagnosis: Pain in joint involving lower leg[ICD9: 719.46] Diagnosis: ESOPHAGEAL REFLUX[ICD9: 530.81] Diagnosis: ESSENTIAL HYPERTENSION[SNOMED: 58733469] [facility] CPT-4: 38583 01/29/2011 Plan of Care Planned Activity Notes Codes Status Date Visit Plan: URI - viral-Pt advised to increase fluids, vitamin C. Discussed natural and expected course of this diagnosis and need to alert me if symptoms do not follow expected course, or if any worse. Note written for DME to explain why she has been unable to wear her CPAP the past few days. Mokxrtb-ugrfegb-ipyblcalb patient continue taper of medication as discussed with Dr Thompson -continue counseling 06/16/2018 Appointment: Valentina Smith WPtel: [address] [place], [place] [phone] (30 min) [facility] 06/16/2018 Patient Education: Patient Medication Summary [...] her psychiatrist. 06/01/2018 Appointment: [phone] (30 min) Complex 06/01/2018 Patient Education: Patient Medication Summary Completed 06/01/2018 Patient Education: Back Pain Completed 06/01/2018 Patient Education: Hypertension Completed 06/01/2018 Patient Education: Obesity Completed 06/01/2018 Appointment: [phone] [place] (15 min) Moderate 04/18/2018 Visit Plan: Hypertension [...] hydrocodone. 04/05/2018 Appointment: Aicha Thompson WPtel: [phone] [facility] [place] (30 min) Complex 04/05/2018 Patient Education: Patient Medication Summary Completed 04/05/2018 Appointment: Aicha Thompson WPtel: [phone] [facility] [place] (15 min) Moderate 03/17/2018 Visit Plan: [...] 2 weeks 03/10/2018 Appointment: Valentina Smith WPtel: [phone] [phone] [place] (15 min) Moderate 03/10/2018 Appointment: Aicha Thompson WPtel: [phone] [facility] [place] (15 min) Moderate 03/10/2018 Patient Education: [...] appt scheduled 01/13/2018 Appointment: Valentina Smith WPtel: [address] [place], [place] [phone] (15 min) Moderate 01/13/2018 Patient Education: Patient [...] current medications. 11/25/2017 Appointment: Valentina Smith WPtel: [facility]9 [phone] (30 min) Complex 11/25/2017 Patient Education: Patient Medication Summary Completed 11/25/2017 Visit Plan: Contact dermatitis-discussed natural and expected course of this diagnosis and to alert me if symptoms do not resolve or if any worse. RX sent to patient's pharmacy and instructed on use. 10/19/2017 Appointment: Valentina Smith WPtel: [phone] (15 min) Moderate 10/19/2017 Patient Education: Patient Medication Summary Completed 10/19/2017 Appointment: Valentina Smith WPtel: [facility]9 [phone] (30 min) Complex 09/27/2017 Visit Plan: Generalized abd tubt-NFE-iflvsf cipro/flagyl- culture urine-recommend patient follow up with Dr Grace for an appt if abdominal pain does not improve Low potassium-check labs 09/17/2017 Visit Plan: Generalized abd zmaa-HFS-fblaxx cipro/flagyl- culture urine-recommend patient follow up with Dr Grace for an appt if abdominal pain does not improve Low potassium-check labs 09/17/2017 Appointment: Valentina Smith WPtel: [facility]5 [phone] (30 min) Complex 09/17/2017 Patient [...] of over-medication. 09/06/2017 Appointment: Aicha Thompson WPtel: [facility]5 [facility] (30 min) Complex 09/06/2017 Patient Education: Patient Medication Summary Completed 09/06/2017 Appointment: Aicha Thompson WPtel: [address] [place], [place] [phone] (30 min) Complex 09/02/2017 Appointment: Aicha Thompson WPtel: [address] [place], [place] [phone] (30 min) Complex 08/23/2017 Visit Plan: Headaches-neck pain-patient is to let us know which neurologist she wants to see B12 def-injection today in the office Hyperlipidemia-check labs Vitamin D def-check level 08/19/2017 Appointment: Valentina Smith WPtel: [facility]5 [phone] (30 min) Complex 08/19/2017 Patient [...] the list of the neurologists that her chute tender has recommended and we would consider a [...] the list of the neurologists that her chute tender has recommended and we would consider a [...] the psychiatrist. 07/06/2017 Appointment: Aicha Thompson WPtel: [facility] (30 min) Complex 07/06/2017 Patient Education: Patient Medication Summary Completed 07/06/2017 Appointment: Aicha Thompson WPtel: [facility] (30 min) Complex 07/05/2017 Appointment: Valentina Smith WPtel: [phone] [place] (30 min) Complex 05/17/2017 Appointment: Beatriz Mojica WPtel: [facility] [place] (30 min) Complex 05/14/2017 Visit Plan: Neck rlih-wcngalk-gartnsq to continue f/u with [facility]-her symptoms have [...] of plan. 04/27/2017 Appointment: Valentina Smith WPtel: [facility]8 [phone] (30 min) Complex 04/27/2017 Patient Education: Patient Medication Summary Completed 04/27/2017 Patient Education: Obesity Completed 04/27/2017 Visit Plan: Hemorrhoidal skin tag-no acute inflammation today -may use hemorrhoid cream as directed as needed-call with any concerns, bleeding, etc. 04/06/2017 Appointment: Valentina Smith WPtel: [facility]0 [phone] (30 min) Complex 04/06/2017 Patient Education: Patient Medication Summary Completed 04/06/2017 Patient Education: Obesity Completed 04/06/2017 Visit Plan: Bilateral foot and ankle pain-now has AFOs-we have made her several appt with podiatrists which she has not kept-recommend patient call Dr Saunders and reschedule appt with him. Neck pain-[facility] appt next week-KEEP APPOINTMENT! 02/25/2017 Appointment: Valentina Smith WPtel: [facility]0 [phone] (30 min) Complex 02/25/2017 Patient [...] podiatry for evaluation-wants to see someone in [place] 11/17/2016 Appointment: Valentina Smith WPtel: [phone] [place] (30 min) Complex 11/17/2016 Patient Education: Patient Medication Summary Completed 11/17/2016 Appointment: Valentina Smith WPtel: [facility]5 [phone] (30 min) Complex 11/16/2016 Visit Plan: [place] referral - pt to indicate when and who she would like to go to - for neck and back AFO for both legs - [facility] in [place], [place]- fax #[phone] 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 10/12/2016 Appointment: Aicha Thompson WPtel: [facility] (30 min) Complex 10/12/2016 Patient Education: Patient Medication Summary Completed 10/12/2016 Patient Education: Obesity Completed 10/12/2016 Appointment: Injection 09/11/2016 Patient Education: Patient Medication Summary Completed 09/11/2016 Visit Plan: Right ankle pain/instability-xray negative- will obtain MRI ankle Ulcer right foot-instructed patient on wound care and the importance of keeping wound clean-f/u in 10-14 days for re-evaluation 08/18/2016 Appointment: Valentina Smith WPtel: [facility]5 [phone] (30 min) Complex 08/18/2016 Patient Education: Patient Medication Summary Completed 08/18/2016 Patient Education: Obesity Completed 08/18/2016 Care Plan: X-RAY EXAM NECK SPINE 2-3 VW LOINC : 24733-4 Pending 08/15/2016 Visit Plan: Vaginal yeast infection-RX for diflucan B12 deficiency-check labs 08/07/2016 Appointment: Valentina Smith WPtel: [phone] [phone] (30 min) Complex 08/07/2016 Patient Education: Patient Medication Summary Completed 08/07/2016 Visit Plan: Cervical stenosis-saw Dr Ramey-Dr Ramey is going to send her to for further evaluation Bilateral ankle pain-xray ankles 07/31/2016 Appointment: Valentina Smith WPtel: [phone] [phone] [place] (30 min) Complex 07/31/2016 Patient Education: Patient Medication Summary Completed 07/31/2016 Patient Education: Obesity Completed 07/31/2016 Visit Plan: Neck pain after fall - Will check x-ray, Pt is to follow up with Dr. Perez. Pt is to notify clinic if symptoms do not improve , if they worsen, or with any questions or concerns. 07/15/2016 Appointment: Beatriz Mojica WPtel: [phone] [phone] (30 min) Complex 07/15/2016 Patient Education: Patient [...] Injection 07/03/2016 Appointment: Valentina Smith WPtel: [phone] [phone] [place] (30 min) Complex 07/03/2016 Patient Education: [...] despite PT. 05/07/2016 Appointment: Valentina Smith WPtel: [phone] (30 min) [facility] 05/07/2016 Patient Education: Patient Medication Summary Completed 05/07/2016 Patient Education: Obesity Completed 05/07/2016 Care Plan: MRI NECK SPINE W/O DYE LOINC : 67818-7 Pending 05/07/2016 Visit Plan: Chronic Depression and [...] monitor symptoms 04/20/2016 Appointment: Valentina Smith WPtel: [address] [place], [place] [phone] (30 min) Complex 04/20/2016 Patient Education: Patient Medication Summary Completed 04/20/2016 Appointment: Valentina Smith WPtel: [address] [place], [place] [phone] (30 min) Complex 03/19/2016 Visit Plan: Chronic [...] Dr Ibarra 03/17/2016 Appointment: Valentina Smith WPtel: [address] [place], [place] [phone] (30 min) Complex 03/17/2016 Patient Education: Patient [...] current medications. 02/28/2016 Appointment: Valentina Smith WPtel: [address] [place], [place] [phone] (15 min) Moderate 02/28/2016 Patient Education: Patient Medication Summary Completed 02/28/2016 Appointment: Valentina Smith WPtel: [address] [place], [place] [phone] (30 min) Complex 02/27/2016 Visit Plan: Hypertension [...] d level 02/13/2016 Appointment: Valentina Smith WPtel: [address] [place], [place] [phone] (30 min) Complex 02/13/2016 Patient Education: Patient Medication Summary Completed 02/13/2016 Patient Education: Obesity Completed 02/13/2016 Care Plan: Tsh Pending 02/13/2016 Care Plan: Lipid Pending 02/13/2016 Care Plan: Comp Metabolic patient to come fasting Pending 02/13/2016 Care Plan: Vitamin D 25 Oh Cancelled 02/13/2016 Care Plan: Cbc With Differential Pending 02/13/2016 Patient Education: Patient Medication Summary Completed 02/03/2016 Care Plan: SCREENINGMAMMOGRAPHYDIGITAL [facility] : 66021-0 Pending 02/03/2016 Appointment: Injection 01/15/2016 Appointment: Lab [...] Plan: X-RAY EXAM NECK SPINE 2-3 VW [facility] : 20548-4 Ordered 08/15/2015 Visit Plan: Anxiety-fairly well controlled-does [...] feet and ankle instability/pain. Refer patient to [facility] for aqua therapy. Patient verbalized understanding of [...] effects. 05/08/2015 Appointment: Aicha Thompson WPtel: [phone] (30 min) Complex 05/08/2015 Patient Education: Patient [...] Completed 10/05/2014 Care Plan: [facility] 18172[facility] Ordered 10/05/2014 Visit Plan: Chronic Pain Syndrome - pt has chronic pain - has been maintained on current medications, has not sought out other medications , only uses PRN pain medications as directed, and understands the consequences of over-medication. Right hip/knee/ankle pain-improving since last fall- continue physical therapy exercises-continue supportive shoes and use walker for stability 06/14/2014 Appointment: Valentina Smith WPtel: [address] [place], [place] [phone] Follow up 06/14/2014 Patient Education: Patient Medication [...] the instructions given to her from her machine container washer and she is to call him if her constipation is uncontrolled. Hemorrhoids-use suppositories as directed. 01/19/2014 Patient Education: Patient Medication Summary Completed 01/19/2014 Visit Plan: Ulcer of dgse-xjwestw-ejrny instructions provided today and instructed patient to return as directed-keep wound clean and dry. Hemorrhoids-refill anusol suppositories and use as directed B12 deficiency-b12 injection today in the office Mspttszyz-wcfehlbozqck-gyumzvn injection today in the office-continue oral medications [...] Anemia-check labs 10/20/2013 Appointment: Valentina Smith WPtel: [facility]5 [phone] [place] Other 10/20/2013 Patient Education: Patient Medication Summary Completed 10/20/2013 Appointment: Valentina Smith WPtel: [facility]5 [phone] [place] Injection 08/21/2013 Appointment: Aicha Thompson WPtel: [address] [place], [place] [phone] [place] Follow up 07/31/2013 Visit Plan: Ulcer of knee healing-silver nitrate to granulation tissue-instructed patient to monitor and call if it does not completely heal for appointment-instructed on wound care-patient and mother verbalized understanding of plan. 07/24/2013 Patient Education: Patient Medication Summary Completed 07/24/2013 Patient Education: Patient Medication Summary Completed 07/24/2013 Appointment: Valentina Smith WPtel: [address] [place], [place] [phone] [place] [address] Follow up 07/03/2013 Visit Plan: Ulcer-left knee-fibrous tissue removed from wound bed to reveal pink granulation tissue-wound cleansed and dressing applied. Instructed patient on wound care. Return in 10 days for follow up. 06/23/2013 Appointment: Valentina Smith WPtel: [address] [place], [place] [phone] [address] [place] [id number] Follow up 06/23/2013 Patient Education: Patient Medication Summary Completed 06/23/2013 Appointment: Valentina Smith WPtel: [address] [place], [place] [phone] [place] [address] Follow up 06/22/2013 Appointment: Aicha Thompson WPtel: [address] [place], [place] [phone] Follow up 06/22/2013 Visit Plan: Ulcer-left knee-fibrous tissue removed from wound bed to reveal pink granulation tissue-wound cleansed and dressing applied. Instructed patient on wound care. Return in 10 days for follow up. 06/12/2013 Appointment: Valentina Simth WPtel: [address] [place], [place] [phone] [place] [address] Follow up 06/12/2013 Patient Education: Patient Medication Summary Completed 06/12/2013 Appointment: Aicha Thompson WPtel: [address] [place], [place] [phone] Follow up 06/08/2013 Visit Plan: Ulcer left ndtz-aaawrgms-e/u in 10 days 05/29/2013 Appointment: Valentina Smith WPtel: [address] [place], [place] [phone] [place] [address] Follow up 05/29/2013 Patient Education: Patient Medication Summary Completed 05/29/2013 Visit Plan: Ulcer of knee-sharp debridement today in the office--wound care instructions provided for patient-patient and mother verbalized understanding of plan. Follow up next week. 05/23/2013 Appointment: Valentina Smith WPtel: [address] [place], [place] [phone] [place] [address] Follow up 05/23/2013 Patient Education: Patient Medication Summary Completed 05/23/2013 Appointment: Valentina Smith WPtel: [address] [place], [place] [phone] Follow up 05/22/2013 Visit Plan: Ulcer of knee-wound care instructions provided for patient-patient and mother verbalized understanding of plan. 05/19/2013 Appointment: Valentina Smith WPtel: [address] [place], [place] [phone] [place] [address] Other 05/19/2013 Patient Education: Patient Medication Summary Completed 05/19/2013 Visit Plan: Ulcer of knee-fibrous tissue debrided today in the office--wound care instructions provided for patient-return in 1 week for follow up. 05/16/2013 Appointment: Valentina Smith WPtel: [address] [place], [place] [phone] [place] [address] Hospital follow up 05/16/2013 Patient Education: Patient Medication Summary Completed 05/16/2013 Appointment: Aicha Thompson WPtel: [address] [place], [place] [phone] Injection 05/10/2013 Patient Education: Patient Medication Summary [...] the office. 03/06/2013 Appointment: Valentina Smith WPtel: [address] [place], [place] [phone] Other 03/06/2013 Patient Education: Patient Medication Summary Completed 03/06/2013 Appointment: Aicha Thompson WPtel: [address] [place], [place] [phone] Nurse Visit 02/20/2013 Patient Education: Patient Medication Summary Completed 02/20/2013 Appointment: [phone] Follow up 01/16/2013 Visit Plan: Joint pain [...] concerns. 12/26/2012 Appointment: Aicha Thompson WPtel: [phone] [place] Other 12/26/2012 Patient Education: Patient Medication Summary Completed 12/26/2012 Patient Education: Hypertension Completed 12/26/2012 Appointment: Aicha Thompson [facility]Ptel: [phone] Lab Draw 12/21/2012 Patient Education: Patient Medication [...] acute changes 11/21/2012 Appointment: Aicha Thompson WPtel: [facility]5 [facility] [place] Follow up 11/21/2012 Patient Education: Patient Medication Summary Completed 11/21/2012 Patient Education: Hypertension Completed 11/21/2012 Appointment: Aicha Thompson WPtel: [facility] [place] Injection 11/16/2012 Patient Education: Patient Medication Summary Completed 11/16/2012 Appointment: Aicha Thompson WPtel: [facility] [place] Injection 09/28/2012 Patient Education: Patient Medication Summary Completed 09/28/2012 Appointment: Aicha Thompson WPtel: [facility] [place] Injection 09/26/2012 Patient Education: Patient Medication Summary Completed 09/26/2012 Appointment: Aicha Thompson WPtel: [facility] [place] Injection 09/12/2012 Patient Education: Patient Medication Summary Completed 09/12/2012 Appointment: Aicha Thompson WPtel: [facility] [place] Injection 08/11/2012 Patient Education: Patient Medication [...] management sparingly. 07/13/2012 Appointment: Aicha Thompson WPtel: [address] [place], [place] [phone] Other 07/13/2012 Patient Education: Patient Medication Summary [...] in medications 05/26/2012 Appointment: Valentina Smith WPtel: [facility] Other 05/26/2012 Patient Education: Patient Medication Summary Completed 05/26/2012 Appointment: Valentina Smith WPtel: [phone] [phone] [place] Sick 03/15/2012 Appointment: Aicha Thompson WPtel: [facility] [place] Injection 03/02/2012 Patient Education: Patient Medication Summary [...] the medication. 02/15/2012 Appointment: Valentina Smith WPtel: [facility]5 [id number] [place] [address] Other 02/15/2012 Patient Education: Patient Medication Summary [...] to medications 01/13/2012 Appointment: Valentina Smith WPtel: [phone] Other 01/13/2012 Patient Education: Patient Medication Summary Completed 01/13/2012 Appointment: Valentina Smith WPtel: [phone] Other 01/06/2012 Visit Plan: Asthma - chest xray and symbicort sample today. Patellofemoral syndrome- recommended physical therapy. Costochondritis - recommended pt to use antiinflammatories as able for treatment of rib/sternum irritation and for pt to call if her symptoms do not improve. 12/21/2011 Appointment: Aicha Thompson WPtel: [phone] [facility] Other 12/21/2011 Patient Education: Patient Medication Summary [...] the office. 10/02/2011 Appointment: Valentina Smith WPtel: [facility]9 [phone] Other 10/02/2011 Patient Education: Patient Medication Summary Completed 10/02/2011 Visit Plan: Pain in joints-arms, elbows-recent fall- discussed natural and expected course of this diagnosis and to alert me if symptoms do not follow expected course, or if any worse. Patient verbalized understanding. Neck kyzb-vjejhbh-xtnkelbda physical therapy-patient declined at this time-going to see the homicide squad commanding officer this afternoon. B12 deficiency-B12 injection today in the office. 09/01/2011 Appointment: Valentina Smith WPtel: [phone] [phone] Other 09/01/2011 Patient Education: Patient [...] sparingly. 08/03/2011 Appointment: Aicha Thompson WPtel: [phone] [facility] Follow up 08/03/2011 Patient Education: Patient Medication [...] PAIN. 06/29/2011 Appointment: Aich[facility] Thompson [facility]Ptel: [phone] Follow up 06/29/2011 Patient Education: Patient Medication Summary Completed 06/29/2011 Appointment: Aicha Thompson WPtel: [phone] [facility] Other 06/24/2011 Visit Plan: Right knee pain, bilateral wrist pain-recent fall-discussed natural and expected course of this diagnosis and to alert me if symptoms do not follow expected course, or if any worse. Patient verbalized understanding. Recommend follow up with Ortho physician if pain persists. 06/22/2011 Appointment: Valentina Smith WPtel: [phone] [phone] Other 06/22/2011 Patient Education: Patient Medication Summary Completed 06/22/2011 Visit Plan: Knee and Ankle pain and instability- recommend re-evaluation by an administrative and program specialist at [facility] [address] [place] [address]. Pt has been recommended to go back to Dr. Corbin at [facility] [address] [place] [address] as my office did not get a [...] of fibromyalgia. 06/11/2011 Appointment: Aicha Thompson WPtel: [facility]5 [facility] [place] Injection 06/11/2011 Appointment: Aicha Thompson WPtel: [phone] Other 06/11/2011 Patient Education: Patient Medication Summary Completed 06/11/2011 Visit Plan: Knee and Ankle pain and instability- recommend evaluation by an administrative and program specialist at [facility]. The pt has been previously referred to [...] physical appearance. 03/11/2011 Appointment: Aicha Thompson WPtel: [facility]5 [facility] Other 03/11/2011 Patient Education: Patient Medication Summary Completed 03/11/2011 Patient Education: .Amazing charts Diabetic meal planning guide Completed 03/11 Appointment: Aicha Thompson WPtel: [phone] [facility] Injection 02/23/2011 Patient Education: Patient Medication Summary Completed 02/23/2011 Visit Plan: iliotibial band syndrome - continue with current treatment per homicide squad commanding officer. I have recommend use of biofreeze to the right outer leg. I have given pt stretching exercises for home. Fibromyalgia - chronic - continue with exercise, heat, and prn pain medication. Knee pain - apparently resolved prior to her appointment today. No change in present management, call if pain returns. 02/12/2011 Appointment: Aicha Thompson WPtel: [phone] [facility] Other 02/12/2011 Patient Education: Patient Medication Summary [...] appt with Dr Ibarra . Ulcer left iglu-svbxuntz-k/u in 10 days . Hemorrhoidal skin tag-no acute inflammation today -may use hemorrhoid cream as directed as needed-call with any concerns, bleeding, etc. sleep study -[facility] . Headaches-patient is not wearing her CPAP and i suspect this may be contributing to her headaches-will contact [facility] for a new sleep study Neck pain -spinal stenosis -[facility] has attempted to contact patient with no response from Mary-I have instructed her to call them and get appt scheduled Dr Saunders -[facility] . Bilateral foot [...] legs - [facility] [place] fax # [phone] pt has been seen by military technology specialist - need brace because of bilateral [...] the instructions given to her from her machine container washer and she is to call him if her constipation is uncontrolled. Hemorrhoids-use suppositories as directed. . Anxiety-fairly well controlled-does have added stress with family-no change in medications-call if symptoms worsen Neck pain-recommend rest, ice and anti inflammatories as directed-call if symptoms do not resolve or if any worse. Patient verbalized understanding of plan. . iliotibial band syndrome - continue with current treatment per homicide squad commanding officer. I have recommend use of biofreeze to [...] and instability- recommend re- evaluation by an administrative and program specialist at [facility] [address] [place] [address]. Pt has been recommended to go back to Dr. Corbin at [facility] [address] [place] [address] as my office did not get a [...] savella for treatment of fibromyalgia. REFER TO [facility] DX BILATERAL FOOT AND ANKLE PAIN . Bilateral foot pain-foot drop-patient getting AFOs-refer to podiatry for evaluation-wants to see someone in [place] N[facility]K [facility] BRAIN Call [facility] [...] the list of the neurologists that her chute tender has recommended and we would consider a [...] the list of the neurologists that her chute tender has recommended and we would consider a [...] if any worse. Patient verbalized understanding. Neck tdzu-mmbshct-ejitqrdmp physical therapy-patient declined at this time- going to see the homicide squad commanding officer this afternoon. B12 deficiency-B12 injection today in [...] today in the office. . Ulcer of pstz-qocbghj-ykusf instructions provided today and instructed patient to return as directed-keep wound clean and dry. Hemorrhoids-refill anusol suppositories and use as directed B12 deficiency-b12 injection today in the office Ffyvntkac-rikhpglwmzla-kczuidr injection today in the office-continue oral medications [...] wear her CPAP the past few days. Fpstjet-nyhbvwl-mhhhabeie patient continue taper of medication as discussed with Dr Thompson -continue counseling . Generalized abd fekl-HGO-dtjrcq cipro/flagyl-culture urine-recommend patient follow up with Dr Grace for an appt if abdominal pain does not improve Low potassium-check labs . Generalized abd eslr-ZZU-mvuofn cipro/flagyl-culture urine-recommend patient follow up with Dr [...] for acute changes B12 injection . Neck ntss-jasgnwa-uymypha to continue f/u with [facility]-her symptoms have [...] regimen-no changes in medications Dr. Ramey - [facility] . Hypertension - well controlled - [...] pain and instability- recommend evaluation by an administrative and program specialist at [facility]. [...] (may be called three old goats) at [facility] home. . Hypertension - well controlled [...]
--- OUTSIDE RECORDS SUMMARY | 2018-08-03 06:41 | XMS REPORT | CCD ---
Author Author [facility] Organization [facility] Address [address] [place] [address] Phone Care Team Providers Care Obstetrics Gyn Name Role Phone PP Unavailable CCM Unavailable Summary Purpose Interface Exchange Insurance Providers Payer name Policy type / Coverage type Covered alliance party ID Effective Begin Date Effective End Date WPS Medicare Part B Medicare Part B [id number] 2013 Unknown [facility] Medicare Part B [id number] 2013 Unknown Family history Grandmother Diagnosis Age [...] status Unknown 01/29/[address]: 565124360 Never smoker 01/29/[address]: 668148 Currently drinks alcohol mixed drink before bed [...] sleep apnea Unknown Active 05/14/2011 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/11/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 Unknown Overweight (BMI [...] Active sleep apnea Unknown 05/14/2011 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 03/11/2011 Active Overweight (BMI 25.0-29.9) [...] Fill Instructions tramadol 50 mg tablet RxNorm: 546606 1-2 Tablet(s) PO TID as needed 06/27/2018 08/25/2018 Active diazepam 5 mg tablet RxNorm: 419525 2 Tablet(s) (10 mg) PO QAM and 1 Tablet (5 mg ) PO QHS 06/15/2018 07/05/2018 Active Claritin-D 12 Hour 5 mg-120 mg tablet,extended release RxNorm: 3275390 Tablet(s) as needed TAKE 1 TABLET BY MOUTH TWICE DAILY NEEDED 201808/13/2018 Active Lipitor 20 mg tablet RxNorm: 510789 1 TABLET(S) PO DAILY 201705/12/2019 Active TAKE ONE TABLET BY MOUTH EVERY NIGHT AT BEDTIME tramadol 50 mg tablet RxNorm: 664343 1-2 Tablet(s) PO TID as needed 04/20/2018 06/18/2018 Inactive Valium 10 mg tablet RxNorm: 169417 1 Tablet(s) daily as needed 04/18/2018 05/31/2018 Inactive hydrocodone 10 mg-acetaminophen 325 mg tablet RxNorm: 750704 1 tab bid x 1 week then daily x 2 weeks then stop Tablet(s) PO Q6 for pain 04/1805/10/2018 Inactive diazepam 10 mg tablet RxNorm: 534168 1 Tablet(s) BID 04/18/2018 06/14/2018 Inactive Claritin-D 12 Hour 5 mg-120 mg tablet,extended release RxNorm: 0669822 Tablet(s) as needed TAKE 1 TABLET BY MOUTH TWICE DAILY NEEDED 201706/11/2018 Inactive tramadol 50 mg tablet RxNorm: 380919 1-2 Tablet(s) PO TID as needed 03/10/2018 04/07/2018 Inactive cyanocobalamin (vit B-12) 1,000 mcg/mL injection solution RxNorm: 420960 1 Milliliter(s) Inj 03/10/2018 03/10/2018 Inactive Seroquel 100 mg tablet RxNorm: 487517 1 TABLET(S) PO BID 201703/01/2019 Active TAKE 1 TABLET BY MOUTH TWICE DAILY hydrocodone 10 mg-acetaminophen 325 mg tablet RxNorm: 961844 1-2 Tablet(s) PO Q6 as needed for pain 02/21/2018 03/09/2018 Inactive Ventolin HFA 90 mcg/actuation aerosol inhaler RxNorm: 458154 1 OR 2 PUFF(S) INH Q6 PRN NEEDED 01/13/2018 07/11/2018 Active trazodone 100 mg tablet RxNorm: 870733 TABLET(S) TAKE 2 TABLETS BY MOUTH EVERY NIGHT AT BEDTIME 12/07/2017 09/02/2018 Active hydrocodone 10 mg-acetaminophen 325 mg tablet RxNorm: 692845 1-2 Tablet(s) PO Q6 as needed for pain 12/03/2017 12/25/2017 Inactive Ventolin HFA 90 mcg/actuation aerosol inhaler RxNorm: 356815 1 OR 2 PUFF(S) INH Q6 PRN NEEDED 11/26/2017 01/12/2018 Inactive Savella 100 mg tablet RxNorm: 560386 TABLET(S) PO TAKE 1 TABLET BY MOUTH DAILY 11/23/2017 No Stop Date Active Effexor XR 150 mg capsule,extended release RxNorm: 789147 1 CAPSULE(S) PO BID 1 CAPSULE(S) PO BID 11/23/2017 04/21/2018 Inactive TAKE 1 CAPSULE BY MOUTH TWICE DAILY diazepam 10 mg tablet RxNorm: 063506 Tablet(s) TAKE 1 TABLET BY MOUTH FOUR TIMES DAILY NEEDED 11/23/2017 03/09/2018 Inactive Claritin-D 12 Hour 5 mg-120 mg tablet,extended release RxNorm: 6782087 Tablet(s) as needed TAKE 1 TABLET BY MOUTH TWICE DAILY NEEDED 201706/14/2018 Inactive Valium 10 mg tablet RxNorm: 118402 1 Tablet(s) QID as needed 11/16/2017 01/14/2018 Inactive metoprolol tartrate 25 mg tablet RxNorm: 646764 TABLET(S) TABLET(S) 1/2 TABLET(S) PO BID TAKE 1/2 TABLET BY MOUTH TWICE DAILY 11/12/2017 No Stop Date Active pantoprazole 40 mg tablet,delayed release RxNorm: 568114 TAKE 1 TABLET BY MOUTH EVERY DAY 11/12/2017 05/10/2018 Inactive betamethasone dipropionate 0.05 % topical cream RxNorm: 116826 1 APPLICATION TOP BID 10/22/2017 11/04/2017 Inactive tramadol 50 mg tablet RxNorm: 407207 1-2 Tablet(s) PO TID as needed 10/20/2017 01/16/2018 Inactive prednisone 10 mg tablets in a dose pack RxNorm: 046376 1 Tablet(s) PO UD 10/19/2017 10/24/2017 Inactive 6-5-4-3-2-1 cyanocobalamin (vit B-12) 1,000 mcg/mL injection solution RxNorm: 726216 1 Milliliter(s) Inj 10/19/2017 10/19/2017 Inactive betamethasone dipropionate 0.05 % topical cream RxNorm: 556851 1 Application TOP BID 10/19/2017 10/21/2017 Inactive hydrocodone 10 mg-acetaminophen 325 mg tablet RxNorm: 956244 1-2 Tablet(s) PO Q6 as needed for pain 10/19/2017 11/10/2017 Inactive Effexor XR 150 mg capsule,extended release RxNorm: 394733 1 Capsule(s) PO BID 1 CAPSULE(S) PO BID 10/19/2017 11/22/2017 Inactive TAKE 1 CAPSULE BY MOUTH TWICE DAILY prednisone 5 mg tablet RxNorm: 591420 1 Tablet(s) PO UD 2017 No Stop Date Active Cipro 500 mg tablet RxNorm: 076350 1 Tablet(s) PO BID 201709/26/2017 Inactive Flagyl 500 mg tablet RxNorm: 995355 1 Tablet(s) PO TID 201709/26/2017 Inactive prednisone 10 mg tablet RxNorm: 346532 1 Tablet(s) PO UD 201709/16/2017 Inactive 2 tabs daily x 3 days 1 tab daily x 3 daily then resume usual 5mg daily hydrocodone 10 mg-acetaminophen 325 mg tablet RxNorm: 585969 1-2 Tablet(s) PO Q6 as needed for pain 09/10/2017 10/02/2017 Inactive Savella 100 mg tablet RxNorm: 314330 TABLET(S) PO TAKE 1 TABLET BY MOUTH DAILY 08/31/2017 No Stop Date Active cyanocobalamin (vit B-12) 1,000 mcg/mL injection solution RxNorm: 815122 1 Milliliter(s) Inj 08/19/2017 08/19/2017 Inactive pantoprazole 40 mg tablet,delayed release RxNorm: 100590 TAKE 1 TABLET BY MOUTH EVERY DAY 08/17/2017 11/11/2017 Inactive trazodone 100 mg tablet RxNorm: 717272 TABLET(S) TAKE 2 TABLETS BY MOUTH EVERY NIGHT AT BEDTIME 08/17/2017 12/06/2017 Inactive Ventolin HFA 90 mcg/actuation aerosol inhaler RxNorm: 249888 1 OR 2 PUFF(S) INH Q6 PRN NEEDED 08/11/2017 01/07/2018 Inactive Advair Diskus 250 mcg-50 mcg/dose powder for inhalation RxNorm: 8347186 1 Puff(s) INH BID 08/11/2017 12/08/2017 Inactive Advair Diskus 250 mcg-50 mcg/dose powder for inhalation RxNorm: 5426036 1 PUFF(S) INH BID 08/11/2017 11/08/2017 Inactive Ventolin HFA 90 mcg/actuation aerosol inhaler RxNorm: 728596 1 OR 2 PUFF(S) INH Q6 PRN NEEDED 08/11/2017 11/25/2017 Inactive hydrocodone 10 mg-acetaminophen 325 mg tablet RxNorm: 329634 1-2 Tablet(s) PO Q6 as needed for pain 08/03/2017 08/25/2017 Inactive tramadol 50 mg tablet RxNorm: 964714 1-2 Tablet(s) PO TID as needed 07/26/2017 04/19/2018 Inactive Valium 10 mg tablet RxNorm: 743952 1 Tablet(s) QID as needed 07/09/2017 09/06/2017 Inactive Effexor XR 150 mg capsule,extended release RxNorm: 592061 Capsule(s) 1 CAPSULE(S) PO BID 07/07/2017 10/18/2017 Inactive TAKE 1 CAPSULE BY MOUTH TWICE DAILY metoprolol tartrate 25 mg tablet RxNorm: 207385 Tablet(s) TABLET(S) 1/2 TABLET(S) PO BID TAKE 1/2 TABLET BY MOUTH TWICE DAILY 07/07/2017 11/11/2017 Inactive diazepam 10 mg tablet RxNorm: 416596 Tablet(s) TAKE 1 TABLET BY MOUTH FOUR TIMES DAILY NEEDED 07/07/2017 08/02/2017 Inactive cyanocobalamin (vit B-12) 1,000 mcg/mL injection solution RxNorm: 071729 1 Milliliter(s) Inj 07/06/2017 07/06/2017 Inactive tramadol 50 mg tablet RxNorm: 491947 1-2 Tablet(s) PO TID as needed 06/21/2017 09/17/2017 Inactive hydrocodone 10 mg-acetaminophen 325 mg tablet RxNorm: 715515 1-2 Tablet(s) PO Q6 as needed for pain 06/17/2017 07/09/2017 Inactive cyclobenzaprine 10 mg tablet RxNorm: 427094 TAKE 1 TABLET BY MOUTH THREE TIMES DAILY NEEDED FOR MUSCLE SPASMS 06/08/2017 08/31/2018 Active Claritin-D 12 Hour 5 mg-120 mg tablet,extended release RxNorm: 8657234 Tablet(s) as needed TAKE 1 TABLET BY MOUTH TWICE DAILY NEEDED 201709/04/2017 Inactive Lipitor 20 mg tablet RxNorm: 346168 1 TABLET(S) PO DAILY 201705/17/2018 Inactive TAKE ONE TABLET BY MOUTH EVERY NIGHT AT BEDTIME trazodone 100 mg tablet RxNorm: 728610 TABLET(S) TAKE 2 TABLETS BY MOUTH EVERY NIGHT AT BEDTIME 05/17/2017 08/14/2017 Inactive cyclobenzaprine 5 mg tablet RxNorm: 334993 Tablet(s) PO TAKE 1 TABLET BY MOUTH THREE TIMES DAILY NEEDED FOR MUSCLE SPASMS (New dose has not been sent to pharmacy) 05/11/2017 No Stop Date Active Valium 5 mg tablet RxNorm: 364991 1 Tablet(s) PO QID as needed (New dose has not been sent to pharmacy) 05/11/2017 Inactive diazepam 10 mg tablet RxNorm: 116016 TAKE 1 TABLET BY MOUTH FOUR TIMES DAILY NEEDED 04/28/2017 05/27/2017 Inactive hydrocodone 10 mg-acetaminophen 325 mg tablet RxNorm: 152066 1-2 Tablet(s) PO Q6 as needed for pain 04/27/2017 05/19/2017 Inactive cyanocobalamin (vit B-12) 1,000 mcg/mL injection solution RxNorm: 742639 1 Milliliter(s) Inj 04/27/2017 04/27/2017 Inactive hydrocodone 10 mg-acetaminophen 325 mg tablet RxNorm: 375952 1-2 Tablet(s) PO Q6 as needed for pain 03/17/2017 04/08/2017 Inactive Seroquel 100 mg tablet RxNorm: 097340 1 TABLET(S) PO BID 201603/06/2018 Inactive TAKE 1 TABLET BY MOUTH TWICE DAILY Valium 10 mg tablet RxNorm: 662349 1 Tablet(s) QID as needed 03/05/2017 05/03/2017 Inactive Claritin-D 12 Hour 5 mg-120 mg tablet,extended release RxNorm: 3158321 Tablet(s) as needed TAKE 1 TABLET BY MOUTH TWICE DAILY NEEDED 201604/13/2018 Inactive pantoprazole 40 mg tablet,delayed release RxNorm: 417804 TAKE 1 TABLET BY MOUTH EVERY DAY 02/26/2017 08/16/2017 Inactive tramadol 50 mg tablet RxNorm: 577272 1-2 Tablet(s) PO TID as needed 02/17/2017 05/17/2017 Inactive hydrocodone 10 mg-acetaminophen 325 mg tablet RxNorm: 855844 1-2 Tablet(s) PO Q6 as needed for pain 02/17/2017 03/11/2017 Inactive Valium 10 mg tablet RxNorm: 079748 1 Tablet(s) QID as needed 02/02/2017 03/03/2017 Inactive (Response to an electronic controlled substance refill request - RxReferenceNumber: [id number]|1|0|1) nystatin 100,000 unit/gram topical powder RxNorm: 471627 1 APPLICATION TOP QID UNTIL HEALED 01/21/2017 No Stop Date Active Advair Diskus 250 mcg-50 mcg/dose powder for inhalation RxNorm: 8579446 1 Puff(s) INH BID 01/21/2017 05/20/2017 Inactive hydrocodone 10 mg-acetaminophen 325 mg tablet RxNorm: 166707 1-2 Tablet(s) PO Q6 as needed for pain 01/21/2017 02/11/2017 Inactive metoprolol tartrate 25 mg tablet RxNorm: 279454 TABLET(S) 1/2 TABLET(S) PO BID TAKE 1/2 TABLET BY MOUTH TWICE DAILY 01/18/2017 07/06/2017 Inactive Effexor XR 150 mg capsule,extended release RxNorm: 204549 1 CAPSULE(S) PO BID 01/11/2017 07/06/2017 Inactive TAKE 1 CAPSULE BY MOUTH TWICE DAILY Effexor XR 150 mg capsule,extended release RxNorm: 462138 1 Capsule(s) PO BID 1 CAPSULE(S) PO BID 01/08/2017 07/06/2017 Inactive TAKE 1 CAPSULE BY MOUTH TWICE DAILY nystatin 100,000 unit/gram topical powder RxNorm: 474227 1 APPLICATION TOP QID UNTIL HEALED 12/17/2016 01/20/2017 Inactive hydrocodone 10 mg-acetaminophen 325 mg tablet RxNorm: 884405 1-2 Tablet(s) PO Q6 as needed for pain 12/17/2016 01/07/2017 Inactive Claritin-D 12 Hour 5 mg-120 mg tablet,extended release RxNorm: 7519091 Tablet(s) as needed TAKE 1 TABLET BY MOUTH TWICE DAILY NEEDED 201602/12/2017 Inactive Lipitor 20 mg tablet RxNorm: 680568 1 TABLET(S) PO DAILY 201606/07/2017 Inactive TAKE ONE TABLET BY MOUTH EVERY NIGHT AT BEDTIME Advair Diskus 250 mcg-50 mcg/dose powder for inhalation RxNorm: 1076331 1 Puff(s) INH BID 11/26/2016 01/20/2017 Inactive Valium 10 mg tablet RxNorm: 291700 1 Tablet(s) QID as needed 11/24/2016 01/22/2017 Inactive (Response to an electronic controlled substance refill request - RxReferenceNumber: [id number]|1|0|1) cyanocobalamin (vit B-12) 1,000 mcg/mL injection solution RxNorm: 213315 1 Milliliter(s) Inj 11/17/2016 11/17/2016 Inactive tramadol 50 mg tablet RxNorm: 233608 1-2 Tablet(s) PO TID as needed 11/06/2016 10/19/2017 Inactive hydrocodone 10 mg-acetaminophen 325 mg tablet RxNorm: 289967 1-2 Tablet(s) PO Q6 as needed for pain 11/06/2016 11/27/2016 Inactive nystatin 100,000 unit/gram topical powder RxNorm: 838980 1 Application TOP QID until healed 10/27/2016 12/16/2016 Inactive cyanocobalamin (vit B-12) 1,000 mcg/mL injection solution RxNorm: 882140 1 Milliliter(s) Inj 10/12/2016 10/12/2016 Inactive trazodone 100 mg tablet RxNorm: 828779 Tablet(s) TAKE 2 TABLETS BY MOUTH EVERY NIGHT AT BEDTIME 09/24/2016 03/22/2017 Inactive Valium 10 mg tablet RxNorm: 404642 1 Tablet(s) QID as needed 09/24/2016 11/22/2016 Inactive (Response to an electronic controlled substance refill request - RxReferenceNumber: [id number]|1|0|1) Savella 100 mg tablet RxNorm: 941105 TABLET(S) PO TAKE 1 TABLET BY MOUTH DAILY 09/18/2016 08/30/2017 Inactive pantoprazole 40 mg tablet,delayed release RxNorm: 083263 TAKE 1 TABLET BY MOUTH EVERY DAY 09/18/2016 02/25/2017 Inactive cyanocobalamin (vit B-12) 1,000 mcg/mL injection solution RxNorm: 221518 1 Milliliter(s) Inj 09/11/2016 09/11/2016 Inactive hydrocodone 10 mg-acetaminophen 325 mg tablet RxNorm: 151165 1-2 Tablet(s) PO Q6 as needed for pain 08/24/2016 11/05/2016 Inactive (Response to an electronic controlled substance refill request - RxReferenceNumber: [id number]|1|0|1) Claritin-D 12 Hour 5 mg-120 mg tablet,extended release RxNorm: 1143371 Tablet(s) TAKE 1 TABLET BY MOUTH TWICE DAILY NEEDED 08/13/2016 04/13/2018 Inactive tramadol 50 mg tablet RxNorm: 312715 1-2 Tablet(s) PO TID PRN as needed 08/11/2016 11/05/2016 Inactive metoprolol tartrate 25 mg tablet RxNorm: 926996 TABLET(S) 1/2 TABLET(S) PO BID TAKE 1/2 TABLET BY MOUTH TWICE DAILY 08/10/2016 01/17/2017 Inactive pantoprazole 40 mg tablet,delayed release RxNorm: 370404 TAKE 1 TABLET BY MOUTH EVERY DAY 08/10/2016 11/05/2016 Inactive Savella 100 mg tablet RxNorm: 536038 TABLET(S) PO TAKE 1 TABLET BY MOUTH DAILY 08/10/2016 11/05/2016 Inactive Ventolin HFA 90 mcg/actuation aerosol inhaler RxNorm: 252055 1 OR 2 PUFF(S) INH Q6 PRN NEEDED 08/07/2016 02/02/2017 Inactive Diflucan 150 mg tablet RxNorm: 266834 1 Tablet(s) PO daily 08/201608/13/2016 Inactive nystatin 100,000 unit/mL oral suspension RxNorm: 015995 5 Milliliter(s) PO QID 08/07/2016 08/16/2016 Inactive hydrocodone 10 mg-acetaminophen 325 mg tablet RxNorm: 711266 1-2 Tablet(s) PO Q6 as needed for pain 08/04/2016 08/23/2016 Inactive (Response to an electronic controlled substance refill request - RxReferenceNumber: [id number]|1|0|1) Valium 10 mg tablet RxNorm: 687774 1 Tablet(s) QID as needed 07/20/2016 09/17/2016 Inactive (Response to an electronic controlled substance refill request - RxReferenceNumber: [id number]|1|0|1) tramadol 50 mg tablet RxNorm: 838030 1-2 Tablet(s) PO TID PRN as needed 07/15/2016 11/05/2016 Inactive ok to give 1 month pyzeyy=255 tablets cyanocobalamin (vit B-12) 1,000 mcg/mL injection solution RxNorm: 228417 Milliliter(s) Inj 07/03/2016 07/03/2016 Inactive Seroquel 100 mg tablet RxNorm: 528882 1 TABLET(S) PO BID 201603/15/2017 Inactive TAKE 1 TABLET BY MOUTH TWICE DAILY hydrocodone 10 mg-acetaminophen 325 mg tablet RxNorm: 218689 1-2 Tablet(s) PO Q6 as needed for pain 06/26/2016 08/03/2016 Inactive (Response to an electronic controlled substance refill request - RxReferenceNumber: [id number]|1|0|1) Valium 10 mg tablet RxNorm: 916752 1 Tablet(s) QID as needed 05/11/2016 07/09/2016 Inactive (Response to an electronic controlled substance refill request - RxReferenceNumber: [id number]|1|0|1) tramadol 50 mg tablet RxNorm: 308130 1-2 Tablet(s) PO TID PRN as needed 05/11/2016 07/08/2016 Inactive ok to give 1 month vuvitc=409 tablets cyclobenzaprine 10 mg tablet RxNorm: 298725 TAKE 1 TABLET BY MOUTH THREE TIMES DAILY NEEDED FOR MUSCLE SPASMS 05/11/2016 05/10/2017 Inactive hydrocodone 10 mg-acetaminophen 325 mg tablet RxNorm: 047509 1-2 Tablet(s) PO Q6 as needed for pain 05/06/2016 06/25/2016 Inactive (Response to an electronic controlled substance refill request - RxReferenceNumber: [id number]|1|0|1) cyanocobalamin (vit B-12) 1,000 mcg/mL injection solution RxNorm: 495394 1 Milliliter(s) Inj 04/20/2016 04/20/2016 Inactive hydrocodone 10 mg-acetaminophen 325 mg tablet RxNorm: 592924 1-2 Tablet(s) PO Q6 as needed for pain 04/03/2016 05/05/2016 Inactive (Response to an electronic controlled substance refill request - RxReferenceNumber: [id number]|1|0|1) pantoprazole 40 mg tablet,delayed release RxNorm: 654927 TAKE 1 TABLET BY MOUTH EVERY DAY 04/02/2016 08/09/2016 Inactive Claritin-D 12 Hour 5 mg-120 mg tablet,extended release RxNorm: 7346254 Tablet(s) TAKE 1 TABLET BY MOUTH TWICE DAILY NEEDED 04/02/2016 11/05/2016 Inactive hydrocodone 10 mg-acetaminophen 325 mg tablet RxNorm: 822578 1-2 Tablet(s) PO Q6 as needed for pain 03/12/2016 04/02/2016 Inactive (Response to an electronic controlled substance refill request - RxReferenceNumber: [id number]|1|0|1) Effexor XR 150 mg capsule,extended release RxNorm: 240469 1 CAPSULE(S) PO BID 03/05/2016 01/07/2017 Inactive TAKE 1 CAPSULE BY MOUTH TWICE DAILY Ventolin HFA 90 mcg/actuation aerosol inhaler RxNorm: 777630 1 OR 2 PUFF(S) INH Q6 PRN NEEDED 02/19/2016 08/06/2016 Inactive cyanocobalamin (vit B-12) 1,000 mcg/mL injection solution RxNorm: 653475 Milliliter(s) Inj 02/13/2016 02/13/2016 Inactive hydrocodone 10 mg-acetaminophen 325 mg tablet RxNorm: 412400 1-2 Tablet(s) PO Q6 as needed for pain 02/05/2016 03/11/2016 Inactive (Response to an electronic controlled substance refill request - RxReferenceNumber: [id number]|1|0|1) Valium 10 mg tablet RxNorm: 773577 1 Tablet(s) QID as needed 02/05/2016 05/04/2016 Inactive (Response to an electronic controlled substance refill request - RxReferenceNumber: [id number]|1|0|1) tramadol 50 mg tablet RxNorm: 377877 1-2 Tablet(s) PO TID PRN as needed 02/05/2016 11/05/2016 Inactive ok to give 1 month pffmga=921 tablets hydrocodone 10 mg-acetaminophen 325 mg tablet RxNorm: 484964 1-2 Tablet(s) PO Q6 as needed for pain 01/08/2016 02/04/2016 Inactive (Response to an electronic controlled substance refill request - RxReferenceNumber: [id number]|1|0|1) metoprolol tartrate 25 mg tablet RxNorm: 151145 Tablet(s) 1/2 TABLET(S) PO BID TAKE 1/2 TABLET BY MOUTH TWICE DAILY 01/08/2016 08/09/2016 Inactive Symbicort 160 mcg-4.5 mcg/actuation HFA aerosol inhaler RxNorm: 6023329 2 INH BID 01/03/2016 11/25/2016 Inactive Symbicort 160 mcg-4.5 mcg/actuation HFA aerosol inhaler RxNorm: 6880750 1 INH daily 01/03/2016 01/02/2016 Inactive Lipitor 20 mg tablet RxNorm: 843190 1 TABLET(S) PO DAILY 201506/26/2016 Inactive TAKE ONE TABLET BY MOUTH EVERY NIGHT AT BEDTIME trazodone 100 mg tablet RxNorm: 110861 TAKE 2 TABLETS BY MOUTH EVERY NIGHT AT BEDTIME 12/30/2015 09/23/2016 Inactive Savella 100 mg tablet RxNorm: 562258 TABLET(S) PO TAKE 1 TABLET BY MOUTH DAILY 12/30/2015 08/09/2016 Inactive hydrocodone 10 mg-acetaminophen 325 mg tablet RxNorm: 392242 1-2 Tablet(s) PO Q6 as needed for pain 12/12/2015 01/07/2016 Inactive (Response to an electronic controlled substance refill request - RxReferenceNumber: [id number]|1|0|1) cyanocobalamin (vit B-12) 1,000 mcg/mL injection solution RxNorm: 064456 1 Milliliter(s) Inj 12/02/2015 12/02/2015 Inactive hydrocodone 10 mg-acetaminophen 325 mg tablet RxNorm: 901583 1-2 Tablet(s) PO Q6 as needed for pain 12/02/2015 12/11/2015 Inactive (Response to an electronic controlled substance refill request - RxReferenceNumber: [id number]|1|0|1) Claritin-D 12 Hour 5 mg-120 mg tablet,extended release RxNorm: 0454505 Tablet(s) TAKE 1 TABLET BY MOUTH TWICE DAILY 11/11/2015 11/10/2015 Inactive Claritin-D 12 Hour 5 mg-120 mg tablet,extended release RxNorm: 3224777 Tablet(s) TAKE 1 TABLET BY MOUTH TWICE DAILY NEEDED 11/11/2015 01/06/2016 Inactive tramadol 50 mg tablet RxNorm: 712684 1-2 Tablet(s) PO TID PRN as needed 11/05/2015 11/05/2016 Inactive ok to give 1 month khmvag=136 tablets Valium 10 mg tablet RxNorm: 959035 1 Tablet(s) QID as needed 11/05/2015 02/02/2016 Inactive (Response to an electronic controlled substance refill request - RxReferenceNumber: [id number]|1|0|1) cyanocobalamin (vit B-12) 1,000 mcg/mL injection solution RxNorm: 417928 1 Milliliter(s) Inj 10/29/2015 10/29/2015 Inactive hydrocodone 10 mg-acetaminophen 325 mg tablet RxNorm: 754954 1-2 Tablet(s) PO Q6 as needed for pain 10/28/2015 12/01/2015 Inactive (Response to an electronic controlled substance refill request - RxReferenceNumber: [id number]|1|0|1) pantoprazole 40 mg tablet,delayed release RxNorm: 175253 TAKE 1 TABLET BY MOUTH EVERY DAY 10/08/2015 04/01/2016 Inactive Seroquel 100 mg tablet RxNorm: 457157 1 TABLET(S) PO BID 201506/29/2016 Inactive TAKE 1 TABLET BY MOUTH TWICE DAILY trazodone 100 mg tablet RxNorm: 792554 TAKE 2 TABLETS BY MOUTH EVERY NIGHT AT BEDTIME 10/08/2015 10/01/2016 Inactive Lipitor 20 mg tablet RxNorm: 719016 1 TABLET(S) PO DAILY 201504/04/2016 Inactive TAKE ONE TABLET BY MOUTH EVERY NIGHT AT BEDTIME hydrocodone 10 mg-acetaminophen 325 mg tablet RxNorm: 615232 1-2 Tablet(s) PO Q6 as needed for pain 09/19/2015 10/18/2015 Inactive (Response to an electronic controlled substance refill request - RxReferenceNumber: [id number]|1|0|1) Valium 10 mg tablet RxNorm: 924502 1 Tablet(s) QID as needed 09/05/2015 11/03/2015 Inactive (Response to an electronic controlled substance refill request - RxReferenceNumber: [id number]|1|0|1) Savella 100 mg tablet RxNorm: 300897 Tablet(s) PO TAKE 1 TABLET BY MOUTH DAILY 07/19/2015 11/05/2016 Inactive Zithromax Z-Lauro 250 mg tablet RxNorm: 694065 1 Tablet(s) PO UD 07/12/2015 11/04/2015 Inactive z lauro hydrocodone 10 mg-acetaminophen 325 mg tablet RxNorm: 674056 1-2 Tablet(s) PO Q6 as needed for pain 07/10/2015 08/08/2015 Inactive (Response to an electronic controlled substance refill request - RxReferenceNumber: [id number]|1|0|1) tramadol 50 mg tablet RxNorm: 346480 1-2 Tablet(s) PO TID PRN as needed 07/04/2015 11/05/2016 Inactive ok to give 1 month ldxvsr=156 tablets hydrocodone 10 mg-acetaminophen 325 mg tablet RxNorm: 388974 1-2 Tablet(s) PO Q6 as needed for pain 06/10/2015 07/09/2015 Inactive (Response to an electronic controlled substance refill request - RxReferenceNumber: [id number]|1|0|1) cyanocobalamin (vit B-12) 1,000 mcg/mL injection solution RxNorm: 462070 Milliliter(s) Inj 06/10/2015 06/10/2015 Inactive pantoprazole 40 mg tablet,delayed release RxNorm: 530403 TABLET(S) PO TAKE 1 TABLET BY MOUTH EVERY DAY 06/10/201511/05 Inactive pantoprazole 40 mg tablet,delayed release RxNorm: 062352 Tablet(s) PO TAKE 1 TABLET BY MOUTH EVERY DAY 06/06/201511/05 Inactive tramadol 50 mg tablet RxNorm: 116211 1-2 Tablet(s) PO TID PRN as needed 05/29/2015 06/27/2015 Inactive ok to give 1 month wolfxi=703 tablets tramadol 50 mg tablet RxNorm: 753053 1-2 Tablet(s) PO Q6 as needed 05/29/2015 06/09/2015 Inactive Valium 10 mg tablet RxNorm: 098768 1 Tablet(s) QID as needed 05/08/2015 07/06/2015 Inactive (Response to an electronic controlled substance refill request - RxReferenceNumber: [id number]|1|0|1) cyclobenzaprine 10 mg tablet RxNorm: 700248 TAKE 1 TABLET BY MOUTH THREE TIMES DAILY NEEDED FOR MUSCLE SPASMS 05/08/2015 05/10/2016 Inactive Effexor XR 150 mg capsule,extended release RxNorm: 374063 1 Capsule(s) PO BID 1 CAPSULE(S) PO BID 05/08/2015 11/05/2016 Inactive TAKE 1 CAPSULE BY MOUTH TWICE DAILY hydrocodone 10 mg-acetaminophen 325 mg tablet RxNorm: 173673 1-2 Tablet(s) PO Q6 as needed for pain 05/08/2015 06/06/2015 Inactive (Response to an electronic controlled substance refill request - RxReferenceNumber: [id number]|1|0|1) metoprolol tartrate 25 mg tablet RxNorm: 216450 1/2 TABLET(S) PO BID TAKE 1/2 TABLET BY MOUTH TWICE DAILY 05/06/201507/2015 Inactive Claritin-D 12 Hour 5 mg-120 mg tablet,extended release RxNorm: 5829633 TAKE 1 TABLET BY MOUTH TWICE DAILY 04/16/201506/2016 Inactive hydrocodone 10 mg-acetaminophen 325 mg tablet RxNorm: 545840 1-2 Tablet(s) PO Q6 as needed for pain 04/15/2015 05/07/2015 Inactive (Response to an electronic controlled substance refill request - RxReferenceNumber: [id number]|1|0|1) pantoprazole 40 mg tablet,delayed release RxNorm: 509287 TABLET(S) PO TAKE 1 TABLET BY MOUTH EVERY DAY 04/08/201506/06 Inactive hydrocodone 10 mg-acetaminophen 325 mg tablet RxNorm: 183934 1 Tablet(s) PO Q4 PRN TAKE 1-2 TABLETS BY MOUTH EVERY 6 HOURS NEEDED FOR PAIN 03/14/2015 04/12/2015 Inactive (Response to an electronic controlled substance refill request - RxReferenceNumber: [id number]|1|0|1) diazepam 10 mg tablet RxNorm: 117023 1 Tablet(s) TID TAKE 1 TABLET BY MOUTH THREE TIMES DAILY NEEDED 02/08/20152016 Inactive (Response to an electronic controlled substance refill request - RxReferenceNumber: [id number]|1|0|1) Effexor XR 150 mg capsule,extended release RxNorm: 926616 1 CAPSULE(S) PO BID 02/07/2015 05/07/2015 Inactive TAKE 1 CAPSULE BY MOUTH TWICE DAILY cyclobenzaprine 10 mg tablet RxNorm: 781552 TAKE 1 TABLET BY MOUTH THREE TIMES DAILY NEEDED FOR MUSCLE SPASMS 02/07/2015 05/07/2015 Inactive pantoprazole 40 mg tablet,delayed release RxNorm: 824000 TABLET(S) PO TAKE 1 TABLET BY MOUTH EVERY DAY 02/07/201504/07 Inactive hydrocodone 10 mg-acetaminophen 325 mg tablet RxNorm: 746854 1 Tablet(s) PO Q4 PRN TAKE 1-2 TABLETS BY MOUTH EVERY 6 HOURS NEEDED FOR PAIN 01/25/2015 02/23/2015 Inactive (Response to an electronic controlled substance refill request - RxReferenceNumber: [id number]|1|0|1) Bactroban Nasal 2 % ointment RxNorm: 044770 1 Application NASAL BID 01/10/2015 01/10/2015 Inactive mupirocin 2 % topical ointment RxNorm: 163948 1 Application TOP TID 1 APPLICATION TOP PRN 01/10/2015 01/19/2015 Inactive disregard order for nasal ointment , use on left knee trazodone 100 mg tablet RxNorm: 480720 TAKE 2 TABLETS BY MOUTH EVERY NIGHT AT BEDTIME 01/08/2015 10/07/2015 Inactive Seroquel 100 mg tablet RxNorm: 276987 1 TABLET(S) PO BID 201410/04/2015 Inactive TAKE 1 TABLET BY MOUTH TWICE DAILY cyclobenzaprine 10 mg tablet RxNorm: 122343 TAKE 1 TABLET BY MOUTH THREE TIMES DAILY NEEDED FOR MUSCLE SPASMS 01/08/2015 02/06/2015 Inactive hydrocodone 10 mg-acetaminophen 325 mg tablet RxNorm: 414640 1 Tablet(s) PO Q4 PRN TAKE 1-2 TABLETS BY MOUTH EVERY 6 HOURS NEEDED FOR PAIN 12/21/2014 01/19/2015 Inactive (Response to an electronic controlled substance refill request - RxReferenceNumber: [id number]|1|0|1) pantoprazole 40 mg tablet,delayed release RxNorm: 206779 TABLET(S) PO TAKE 1 TABLET BY MOUTH EVERY DAY 12/13/201402/06 Inactive Lipitor 20 mg tablet RxNorm: 760211 1 Tablet(s) PO daily 201409/08/2015 Inactive TAKE ONE TABLET BY MOUTH EVERY NIGHT AT BEDTIME Valium 10 mg tablet RxNorm: 728025 1 Tablet(s) QID as needed 12/12/2014 02/09/2015 Inactive (Response to an electronic controlled substance refill request - RxReferenceNumber: [id number]|1|0|1) hydrocodone 10 mg-acetaminophen 325 mg tablet RxNorm: 738153 Tablet(s) TAKE 1-2 TABLETS BY MOUTH EVERY 6 HOURS NEEDED FOR PAIN 12/12/2014 12/20/2014 Inactive ( Response to an electronic controlled substance refill request - RxReferenceNumber: [id number]|1|0|1) Lipitor 20 mg tablet RxNorm: 338312 1 Tablet(s) PO daily 201412/12/2014 Inactive TAKE ONE TABLET BY MOUTH EVERY NIGHT AT BEDTIME pantoprazole 40 mg tablet,delayed release RxNorm: 204554 TABLET(S) PO TAKE 1 TABLET BY MOUTH EVERY DAY 12/06/201411/05 Inactive Savella 100 mg tablet RxNorm: 759320 Tablet(s) PO TAKE 1 TABLET BY MOUTH DAILY 12/06/2014 07/18/2015 Inactive Lipitor 20 mg tablet RxNorm: 822625 1 Tablet(s) PO daily 201412/10/2014 Inactive TAKE ONE TABLET BY MOUTH EVERY NIGHT AT BEDTIME Valium 10 mg tablet RxNorm: 599266 TAKE 1 TABLET BY MOUTH FOUR TIMES DAILY NEEDED FOR ANXIETY 12/06/2014 12/11/2014 Inactive Valium 10 mg tablet RxNorm: 196343 1 Tablet(s) QID as needed 11/13/2014 12/11/2014 Inactive (Response to an electronic controlled substance refill request - RxReferenceNumber: [id number]|1|0|1) hydrocodone 10 mg-acetaminophen 325 mg tablet RxNorm: 967045 Tablet(s) TAKE 1-2 TABLETS BY MOUTH EVERY 6 HOURS NEEDED FOR PAIN 11/13/2014 12/11/2014 Inactive ( Response to an electronic controlled substance refill request - RxReferenceNumber: [id number]|1|0|1) hydrocodone 10 mg-acetaminophen 325 mg tablet RxNorm: 877616 Tablet(s) TAKE 1-2 TABLETS BY MOUTH EVERY 6 HOURS NEEDED FOR PAIN 11/08/2014 11/12/2014 Inactive ( Response to an electronic controlled substance refill request - RxReferenceNumber: [id number]|1|0|1) Valium 10 mg tablet RxNorm: 817672 1 Tablet(s) QID as needed 11/08/2014 11/12/2014 Inactive (Response to an electronic controlled substance refill request - RxReferenceNumber: [id number]|1|0|1) metoprolol tartrate 25 mg tablet RxNorm: 695733 1/2 TABLET(S) PO BID TAKE 1/2 TABLET BY MOUTH TWICE DAILY 11/08/2014 Inactive Valium 10 mg tablet RxNorm: 990192 TAKE 1 TABLET BY MOUTH FOUR TIMES DAILY NEEDED FOR ANXIETY 11/06/2014 12/09/2014 Inactive Vitamin D2 50,000 unit capsule RxNorm: 330977 1 Capsule(s) PO QW 10/24/2014 10/23/2014 Inactive Vitamin D2 50,000 unit capsule RxNorm: 884965 1 Capsule(s) PO QW x 8 weeks 10/24/2014 12/22/2014 Inactive Entyvio 300 mg intravenous solution RxNorm: 8185771 IV 2014 No Stop Date Active hydrocodone 10 mg-acetaminophen 325 mg tablet RxNorm: 391941 Tablet(s) TAKE 1-2 TABLETS BY MOUTH EVERY 6 HOURS NEEDED FOR PAIN 10/05/2014 11/03/2014 Inactive ( Response to an electronic controlled substance refill request - RxReferenceNumber: [id number]|1|0|1) Valium 10 mg tablet RxNorm: 447610 TAKE 1 TABLET BY MOUTH EVERY 8 HOURS NEEDED 10/05/2014 11/03/2014 Inactive (Response to an electronic controlled substance refill request - RxReferenceNumber: [id number]|1|0|1) Valium 10 mg tablet RxNorm: 229915 1 Tablet(s) PO QID as needed TAKE 1 TABLET BY MOUTH 10/05/2014 11/05/2016 Inactive (Response to an electronic controlled substance refill request - RxReferenceNumber: [id number]|1|0|1) Valium 10 mg tablet RxNorm: 008551 TAKE 1 TABLET BY MOUTH THREE TIMES DAILY NEEDED 09/04/2014 10/03/2014 Inactive (Response to an electronic controlled substance refill request - RxReferenceNumber: [id number]|1|0|1) Valium 10 mg tablet RxNorm: 229725 1 Tablet(s) PO Q8 PRN as needed 09/04/2014 11/09/2014 Inactive hydrocodone 10 mg-acetaminophen 325 mg tablet RxNorm: 728855 Tablet(s) TAKE 1-2 TABLETS BY MOUTH EVERY 6 HOURS NEEDED FOR PAIN 08/27/2014 09/25/2014 Inactive ( Response to an electronic controlled substance refill request - RxReferenceNumber: [id number]|1|0|1) Claritin-D 12 Hour 5 mg-120 mg tablet,extended release RxNorm: 1158400 1 Tablet(s ) PO BID 08/27/2014 04/16/2015 Inactive Ventolin HFA 90 mcg/actuation aerosol inhaler RxNorm: 101752 1 or 2 Puff(s) INH Q6 PRN as needed 08/09/2014 03/06/2015 Inactive pantoprazole 40 mg tablet,delayed release RxNorm: 553436 Tablet(s) PO TAKE 1 TABLET BY MOUTH EVERY DAY 08/09/201408/08 Inactive pantoprazole 40 mg tablet,delayed release RxNorm: 977517 TAKE 1 TABLET BY MOUTH EVERY DAY 08/09/2014 11/05/2016 Inactive diazepam 10 mg tablet RxNorm: 091352 TAKE 1 TABLET BY MOUTH THREE TIMES DAILY NEEDED 07/02/2014 07/31/2014 Inactive (Response to an electronic controlled substance refill request - RxReferenceNumber: [id number]|1|0|1) Valium 10 mg tablet RxNorm: 356388 1 Tablet(s) PO Q8 PRN as needed 07/02/2014 07/01/2014 Inactive hydrocodone 10 mg-acetaminophen 325 mg tablet RxNorm: 132441 Tablet(s) TAKE 1-2 TABLETS BY MOUTH EVERY 6 HOURS NEEDED FOR PAIN 06/14/2014 07/13/2014 Inactive ( Response to an electronic controlled substance refill request - RxReferenceNumber: [id number]|1|0|1) diazepam 10 mg tablet RxNorm: 080237 TAKE 1 TABLET BY MOUTH THREE TIMES DAILY NEEDED 05/29/2014 06/27/2014 Inactive (Response to an electronic controlled substance refill request - RxReferenceNumber: [id number]|1|0|1) diazepam 10 mg tablet RxNorm: 798572 Tablet(s) PO TAKE 1 TABLET BY MOUTH THREE TIMES DAILY NEEDED 05/29/20142013 Inactive (Appended: Controlled substance eRx refill - RxReferenceNumber: [id number]|1|0|1) hydrocodone 10 mg-acetaminophen 325 mg tablet RxNorm: 864716 Tablet(s) TAKE 1-2 TABLETS BY MOUTH EVERY 6 HOURS NEEDED FOR PAIN 05/17/2014 06/13/2014 Inactive ( Response to an electronic controlled substance refill request - RxReferenceNumber: [id number]|1|0|1) diazepam 10 mg tablet RxNorm: 393145 Tablet(s) PO TAKE 1 TABLET BY MOUTH THREE TIMES DAILY NEEDED 04/27/20142013 Inactive (Appended: Controlled substance eRx refill - RxReferenceNumber: [id number]|1|0|1) Anucort-HC 25 mg suppository RxNorm: 6115884 1 SUPPOSITORY RTL QDAY PRN NEEDED 04/03/2014 06/01/2014 Inactive metoprolol tartrate 25 mg tablet RxNorm: 536773 1/2 TABLET(S) PO BID TAKE 1/2 TABLET BY MOUTH TWICE DAILY 04/03/201408/2014 Inactive Anucort-HC 25 mg suppository RxNorm: 9934606 1 SUPPOSITORY RTL QDAY PRN NEEDED 04/03/2014 06/01/2014 Inactive Seroquel 100 mg tablet RxNorm: 816325 1 TABLET(S) PO BID 201312/28/2014 Inactive TAKE 1 TABLET BY MOUTH TWICE DAILY Anucort-HC 25 mg suppository RxNorm: 8677234 1 SUPPOSITORY RTL QDAY PRN NEEDED 04/03/2014 06/01/2014 Inactive hydrocodone 10 mg-acetaminophen 325 mg tablet RxNorm: 587361 Tablet(s) TAKE 1-2 TABLETS BY MOUTH EVERY 6 HOURS NEEDED FOR PAIN 03/22/2014 04/20/2014 Inactive ( Response to an electronic controlled substance refill request - RxReferenceNumber: [id number]|1|0|1) Claritin-D 12 Hour 5 mg-120 mg tablet,extended release RxNorm: 7524785 1 Tablet(s ) PO BID 03/22/2014 2014 Inactive diazepam 10 mg tablet RxNorm: 228313 TAKE 1 TABLET BY MOUTH THREE TIMES DAILY NEEDED 03/19/2014 04/16/2014 Inactive (Response to an electronic controlled substance refill request - RxReferenceNumber: [id number]|1|0|1) Lipitor 20 mg tablet RxNorm: 779605 1 TABLET(S) PO DAILY 201312/05/2014 Inactive TAKE ONE TABLET BY MOUTH EVERY NIGHT AT BEDTIME Effexor XR 150 mg capsule,extended release RxNorm: 357907 1 CAPSULE(S) PO BID 03/01/2014 01/24/2015 Inactive TAKE 1 CAPSULE BY MOUTH TWICE DAILY Claritin-D 12 Hour 5 mg-120 mg tablet,extended release RxNorm: 4968042 1 Tablet(s ) PO BID 02/19/2014 03/21/2014 Inactive cyanocobalamin (vit B-12) 1,000 mcg/mL injection solution RxNorm: 798836 Milliliter(s) Inj 02/15/2014 02/15/2014 Inactive hydrocodone 10 mg-acetaminophen 325 mg tablet RxNorm: 412569 1 Tablet(s) PO Q6 PRN TAKE ONE TO TWO TABLETS BY MOUTH EVERY 6 HOURS NEEDED FOR PAIN 01/30/2014 01/30/2014 Inactive (Response to an electronic controlled substance refill request - RxReferenceNumber: [id number]|1|0|1) hydrocodone 10 mg-acetaminophen 325 mg tablet RxNorm: 549661 TAKE 1-2 TABLETS BY MOUTH EVERY 6 HOURS NEEDED FOR PAIN 01/30/2014 02/19/2014 Inactive (Response to an electronic controlled substance refill request - RxReferenceNumber: [id number]| [id number]|1|0|1) cyanocobalamin (vit B-12) 1,000 mcg/mL injection kit RxNorm: 962703 1 Milliliter(s ) Inj 01/15/2014 01/15/2014 Inactive Kenalog 40 mg/mL suspension for injection RxNorm: 2243947 1 Milliliter(s) Inj 01/15/2014 01/15/2014 Inactive Anucort-HC 25 mg suppository RxNorm: 8576243 1 Suppository RTL QDAY PRN as needed 01/15/2014 02/13/2014 Inactive hydrocodone 10 mg-acetaminophen 325 mg tablet RxNorm: 987915 TAKE ONE TO TWO TABLETS BY MOUTH EVERY 6 HOURS NEEDED FOR PAIN 12/29/2013 01/18/2014 Inactive ( Response to an electronic controlled substance refill request - RxReferenceNumber: [id number]|1|0|1) trazodone 100 mg tablet RxNorm: 679504 TAKE 2 TABLETS BY MOUTH EVERY NIGHT AT BEDTIME 12/20/2013 12/14/2014 Inactive mupirocin 2 % topical ointment RxNorm: 003409 1 APPLICATION TOP PRN 12/14/2013 01/09/2015 Inactive cyanocobalamin (vit B-12) 1,000 mcg/mL injection solution RxNorm: 619114 1 Milliliter(s) Inj 12/04/2013 12/04/2013 Inactive Savella 100 mg tablet RxNorm: 631260 1 Tablet(s) PO daily TAKE 1 TABLET BY MOUTH DAILY 11/28/2013 11/05/2016 Inactive Savella 100 mg tablet RxNorm: 654038 Tablet(s) PO TAKE 1 TABLET BY MOUTH DAILY 10/27/2013 11/27/2013 Inactive mupirocin 2 % topical ointment RxNorm: 334625 1 Application TOP PRN 10/17/2013 No Stop Date Active trazodone 100 mg tablet RxNorm: 122471 Tablet(s) PO TAKE 2 TABLETS BY MOUTH EVERY NIGHT AT BEDTIME 09/26/2013 11/05/2016 Inactive cyclobenzaprine 10 mg tablet RxNorm: 209468 Tablet(s) PO TAKE ONE TABLET BY MOUTH THREE TIMES DAILY 09/26/2013 01/07/2015 Inactive diazepam 10 mg tablet RxNorm: 717803 Tablet(s) PO TAKE 1 TABLET BY MOUTH THREE TIMES DAILY NEEDED 08/15/20132013 Inactive (Appended: Controlled substance eRx refill - RxReferenceNumber: [id number]|1|0|1) diazepam 10 mg tablet RxNorm: 321927 1 Tablet(s) PO TID PRN TAKE 1 TABLET BY MOUTH THREE TIMES DAILY NEEDED 08/15/2013 Inactive (Appended: Controlled substance eRx refill - RxReferenceNumber: [id number]|1|0|1) Vitamin B-12 1,000 mcg/mL injection solution RxNorm: 514391 Milliliter(s) Inj 07/24/2013 07/24/2013 Inactive pantoprazole 40 mg tablet,delayed release RxNorm: 353013 Tablet(s) PO TAKE 1 TABLET BY MOUTH EVERY DAY 07/20/201308/08 Inactive hydrocodone 10 mg-acetaminophen 325 mg tablet RxNorm: 283687 1 or 2 Tablet(s) PO Q6 PRN limit 6 per day 06/26/20132013 Inactive (Appended: Controlled substance eRx refill - RxReferenceNumber: [id number]|1|0|1) trazodone 100 mg tablet RxNorm: 620047 Tablet(s) PO TAKE 2 TABLETS BY MOUTH EVERY NIGHT AT BEDTIME 06/26/2013 11/05/2016 Inactive pantoprazole 40 mg tablet,delayed release RxNorm: 087044 Tablet(s) PO TAKE 1 TABLET BY MOUTH EVERY DAY 06/20/201306/05 Inactive prednisone 10 mg tablets in a dose pack RxNorm: 898886 Tablet(s) PO 6-5-4-3-2-1 06/13/2013 06/12/2013 Inactive prednisone 10 mg tablets in a dose pack RxNorm: 125699 Tablet(s) PO UD 6-5-4-3-2- 1 06/13/2013 06/18/2013 Inactive Silvadene 1 % topical cream RxNorm: 353022 1 TOP daily apply thin layer to left knee daily 06/12/2013 06/18/2013 Inactive metoprolol tartrate 25 mg tablet RxNorm: 522861 1/2 Tablet(s) PO BID TAKE 1/2 TABLET BY MOUTH TWICE DAILY 05/19/2013 Inactive Lipitor 20 mg tablet RxNorm: 841405 1 Tablet(s) PO daily 201203/11/2014 Inactive TAKE ONE TABLET BY MOUTH EVERY NIGHT AT BEDTIME Vitamin B-12 1,000 mcg/mL injection solution RxNorm: 491657 1 Milliliter(s) Inj 05/10/2013 05/10/2013 Inactive hydrocodone 10 mg-acetaminophen 325 mg tablet RxNorm: 555155 1 or 2 Tablet(s) PO Q6 PRN limit 6 per day 03/16/2013 No Stop Date Active (Appended: Controlled substance eRx refill - RxReferenceNumber: [id number]|1|0|1) Seroquel 100 mg tablet RxNorm: 758277 1 Tablet(s) PO BID 201203/10/2014 Inactive TAKE 1 TABLET BY MOUTH TWICE DAILY Effexor XR 150 mg capsule,extended release RxNorm: 439982 1 Capsule(s) PO BID 03/16/2013 02/28/2014 Inactive TAKE 1 CAPSULE BY MOUTH TWICE DAILY fluconazole 150 mg tablet RxNorm: 035020 1 Tablet(s) PO daily 03/06/2013 03/12/2013 Inactive Kenalog 40 mg/mL Susp for Injection RxNorm: 8349013 Milliliter(s) Inj 03/06/2013 03/06/2013 Inactive Ventolin HFA 90 mcg/actuation Aerosol Inhaler RxNorm: 2106573 1 or 2 Puff(s) INH Q6 PRN 02/20/2013 03/16/2014 Inactive cyanocobalamin (vitamin B-12) 1,000 mcg/mL Injection RxNorm: 701856 Milliliter(s) Inj 02/20/2013 02/20/2013 Inactive Valium 10 mg tablet RxNorm: 720386 1 Tablet(s) PO Q8 PRN 01/3102/24/2014 Inactive Kenalog 40 mg/mL Susp for Injection RxNorm: 4629864 Milliliter(s) Inj 12/26/2012 12/26/2012 Inactive cyanocobalamin (vitamin B-12) 1,000 mcg/mL Injection RxNorm: 379337 Milliliter(s) Inj 12/21/2012 12/21/2012 Inactive hydrocodone 10 mg-acetaminophen 325 mg tablet RxNorm: 9038566 1 or 2 Tablet(s) PO Q6 PRN limit 6 per day 11/25/20122012 Inactive (Appended: Controlled substance eRx refill - RxReferenceNumber: [id number]|1|0|1) diazepam 10 mg tablet RxNorm: 639918 1 Tablet(s) PO TID PRN 08/15/2013 Inactive TAKE 1 TABLET BY MOUTH THREE TIMES DAILY NEEDED (Appended: Controlled substance eRx refill - RxReferenceNumber: [id number]|1|0|1) diazepam 10 mg tablet RxNorm: 863715 Tablet(s) PO TAKE 1 TABLET BY MOUTH THREE TIMES DAILY NEEDED 11/21/20122013 Inactive (Appended: Controlled substance eRx refill - RxReferenceNumber: [id number]|1|0|1) Vitamin B-12 1,000 mcg/mL Injection RxNorm: 173590 1 Milliliter(s) Inj 11/16/2012 11/16/2012 Inactive hydrocodone 10 mg-acetaminophen 325 mg tablet RxNorm: 1686098 1 or 2 Tablet(s) PO Q6 PRN limit 6 per day 10/24/20122012 Inactive (Appended: Controlled substance eRx refill - RxReferenceNumber: [id number]|1|0|1) hydrocodone 10 mg-acetaminophen 325 mg tablet RxNorm: 1500264 Tablet(s) PO limit 5x days 10/24/2012 10/23/2012 Inactive (Appended: Controlled substance eRx refill - RxReferenceNumber: [id number]|1|0|1) Savella 100 mg tablet RxNorm: 013900 Tablet(s) PO TAKE 1 TABLET BY MOUTH DAILY 10/14/2012 12/05/2014 Inactive Tubersol 5 tub. unit/0.1 mL Intradermal RxNorm: 937992 Milliliter(s) IDrm 09/26/2012 09/26/2012 Inactive hydrocodone 10 mg-acetaminophen 325 mg tablet RxNorm: 1002531 1 Tablet(s) PO Q4 PRN q 4 hr prn limit 5 per day 09/19/2012 No Stop Date Active (Appended: Controlled substance eRx refill - RxReferenceNumber: [id number]|1|0|1) hydrocodone 10 mg-acetaminophen 325 mg tablet RxNorm: 4434188 Tablet(s) PO TAKE 1 TABLET BY MOUTH FOUR TIMES DAILY 09/16/2012 10/23/2012 Inactive (Appended: Controlled substance eRx refill - RxReferenceNumber: [id number]|1|0|1) cyclobenzaprine 10 mg tablet RxNorm: 384659 Tablet(s) PO TAKE ONE TABLET BY MOUTH THREE TIMES DAILY 09/16/2012 09/25/2013 Inactive hydrocodone 10 mg-acetaminophen 325 mg tablet RxNorm: 0652382 1 Tablet(s) PO Q4 PRN q 4 hr prn limit 5 per day 09/14/2012 09/19/2012 Inactive (Appended: Controlled substance eRx refill - RxReferenceNumber: [id number]|1|0|1) cyanocobalamin (vitamin B-12) 1,000 mcg/mL Injection RxNorm: 316477 1 Milliliter(s ) Inj 09/12/2012 09/12/2012 Inactive cyclobenzaprine 10 mg tablet RxNorm: 384084 Tablet(s) PO TAKE ONE TABLET BY MOUTH THREE TIMES DAILY 09/02/2012 09/15/2012 Inactive hydrocodone 10 mg-acetaminophen 325 mg tablet RxNorm: 7422926 1 Tablet(s) PO QID TAKE 1 TABLET BY MOUTH FOUR TIMES DAILY 08/23/2012 09/13/2012 Inactive (Appended: Controlled substance eRx refill - RxReferenceNumber: [id number]|1|0|1) Kenalog 40 mg/mL Susp for Injection RxNorm: 4903657 1 Milliliter(s) Inj 08/11/2012 08/11/2012 Inactive Vitamin B-12 1,000 mcg/mL Injection RxNorm: 968569 1 Milliliter(s) Inj 08/11/2012 08/11/2012 Inactive Zithromax 250 mg tablet RxNorm: 332534 Tablet(s) PO 07/21/2012 09/14/2012 Inactive please give z lauro cefdinir 300 mg capsule RxNorm: 148443 1 Capsule(s) PO BID 07/20/2012 Inactive cefdinir 300 mg capsule RxNorm: 429224 1 Capsule(s) PO BID 07/27/2012 Inactive diazepam 10 mg tablet RxNorm: 469286 1 Tablet(s) PO TID PRN 12/201211/22/2012 Inactive TAKE 1 TABLET BY MOUTH THREE TIMES DAILY NEEDED (Appended: Controlled substance eRx refill - RxReferenceNumber: [id number]|1|0|1) Vitamin B-12 1,000 mcg/mL Injection RxNorm: 753121 1 Milliliter(s) Inj 07/13/2012 07/13/2012 Inactive pantoprazole 40 mg tablet,delayed release RxNorm: 040903 1 Tablet(s) PO daily 06/14/2012 06/13/2012 Inactive pantoprazole 40 mg tablet,delayed release RxNorm: 070117 1 Tablet(s) PO daily 06/14/2012 06/19/2013 Inactive trazodone 100 mg tablet RxNorm: 504586 Tablet(s) PO TAKE 2 TABLETS BY MOUTH EVERY NIGHT AT BEDTIME 06/06/2012 11/05/2016 Inactive hydrocodone 10 mg-acetaminophen 325 mg tablet RxNorm: 3556174 Tablet(s) PO TAKE 1 TABLET BY MOUTH FOUR TIMES DAILY 05/24/2012 08/23/2012 Inactive (Appended: Controlled substance eRx refill - RxReferenceNumber: [id number]|1|0|1) Symbicort 160 mcg-4.5 mcg/actuation HFA Aerosol Inhaler RxNorm: 4104815 1 INH daily 05/24/2012 05/23/2012 Inactive this is an increase in dosing Symbicort 160 mcg-4.5 mcg/actuation HFA Aerosol Inhaler RxNorm: 7986829 1 INH daily 05/24/2012 06/17/2013 Inactive this is an increase in dosing Ventolin HFA 90 mcg/actuation Aerosol Inhaler RxNorm: 298728 1 or 2 Puff(s) INH Q6 PRN 05/24/2012 05/23/2012 Inactive Ventolin HFA 90 mcg/actuation Aerosol Inhaler RxNorm: 083139 1 or 2 Puff(s) INH Q6 PRN 05/24/2012 02/19/2013 Inactive metoprolol tartrate 25 mg tablet RxNorm: 438355 Tablet(s) PO TAKE 1/2 TABLET BY MOUTH TWICE DAILY 05/24/2012 05/18/2013 Inactive hydrocodone-acetaminophen 10 mg-325 mg tablet RxNorm: 2037031 Tablet(s) PO TAKE 1 TABLET BY MOUTH FOUR TIMES DAILY 05/17/2012 05/17/2012 Inactive (Appended: Controlled substance eRx refill - RxReferenceNumber: [id number]|1|0|1) diazepam 10 mg tablet RxNorm: 985744 Tablet(s) PO 05/03/2012 07/13/2012 Inactive TAKE 1 TABLET BY MOUTH THREE TIMES DAILY NEEDED (Appended: Controlled substance eRx refill - RxReferenceNumber: [id number]|1|0|1) metoprolol tartrate 25 mg tablet RxNorm: 773687 Tablet(s) PO 11/05/2016 Inactive TAKE 1/2 TABLET BY MOUTH TWICE DAILY hydrocodone-acetaminophen 10 mg-325 mg tablet RxNorm: 1213198 Tablet(s) PO 04/11/2012 05/17/2012 Inactive TAKE 1 TABLET BY MOUTH FOUR TIMES DAILY (Appended: Controlled substance eRx refill - RxReferenceNumber: [id number]|1|0|1) ProAir HFA 90 mcg/actuation Aerosol Inhaler RxNorm: 489640 2 INH Q4 PRN 04/05/2012 04/29/2013 Inactive Symbicort 80 mcg-4.5 mcg/actuation HFA Aerosol Inhaler RxNorm: 0232009 2 INH BID 04/05/2012 04/04/2012 Inactive Symbicort 80 mcg-4.5 mcg/actuation HFA Aerosol Inhaler RxNorm: 5752533 2 INH BID 04/05/2012 05/23/2012 Inactive ProAir HFA 90 mcg/actuation Aerosol Inhaler RxNorm: 769350 2 INH Q4 PRN 04/05/2012 04/04/2012 Inactive diazepam 10 mg tablet RxNorm: 317894 Tablet(s) PO 03/17/2012 05/03/2012 Inactive TAKE 1 TABLET BY MOUTH THREE TIMES DAILY NEEDED (Appended: Controlled substance eRx refill - RxReferenceNumber: [id number]|1|0|1) Effexor XR 150 mg capsule,extended release RxNorm: 912638 Capsule(s) PO 03/13/2012 03/15/2013 Inactive TAKE 1 CAPSULE BY MOUTH TWICE DAILY fluconazole 150 mg tablet RxNorm: 375113 1 Tablet(s) PO daily 03/11/2012 03/17/2012 Inactive Lipitor 20 mg tablet RxNorm: 046479 Tablet(s) PO 02/25/2012 03/20/2013 Inactive TAKE ONE TABLET BY MOUTH EVERY NIGHT AT BEDTIME Seroquel 100 mg tablet RxNorm: 122607 1 Tablet(s) PO BID 201102/18/2013 Inactive TAKE 1 TABLET BY MOUTH TWICE DAILY hydrocodone-acetaminophen 10 mg-325 mg tablet RxNorm: 4744004 Tablet(s) PO 02/25/2012 04/11/2012 Inactive TAKE 1 TABLET BY MOUTH FOUR TIMES DAILY . (Appended : Controlled substance eRx refill - RxReferenceNumber: [id number]|1|0|1) Seroquel 100 mg tablet RxNorm: 576695 1 Tablet(s) PO BID 201102/24/2012 Inactive TAKE 1 TABLET BY MOUTH TWICE DAILY Nexium 40 mg capsule,delayed release RxNorm: 134751 1 Capsule(s) PO daily 02/16/2012 06/13/2012 Inactive Effexor XR 150 mg capsule,extended release RxNorm: 373315 Capsule(s) PO 01/14/2012 11/05/2016 Inactive TAKE 1 CAPSULE BY MOUTH TWICE DAILY Kenalog 40 mg/mL Susp for Injection RxNorm: 1101425 1 Milliliter(s) Inj 01/13/2012 01/13/2012 Inactive Vitamin B-12 1,000 mcg/mL Injection RxNorm: 928053 Milliliter(s) Inj 12/21/2011 12/21/2011 Inactive hydrocodone-acetaminophen 10 mg-325 mg tablet RxNorm: 0187989 Tablet(s) PO 12/15/2011 02/25/2012 Inactive TAKE 1 TABLET BY MOUTH FOUR TIMES DAILY (Appended: Controlled substance eRx refill - RxReferenceNumber: [id number]|1|0|1) diazepam 10 mg tablet RxNorm: 356363 Tablet(s) PO 12/15/2011 03/17/2012 Inactive TAKE 1 TABLET BY MOUTH THREE TIMES DAILY NEEDED (Appended: Controlled substance eRx refill - RxReferenceNumber: [id number]|1|0|1) diazepam 10 mg Tab RxNorm: 259799 1 Tablet(s) PO daily 201112/15/2011 Inactive TAKE 1 TABLET BY MOUTH THREE TIMES DAILY (Appended: Controlled substance eRx refill - RxReferenceNumber: [id number]|1|0|1) hydrocodone-acetaminophen 10 mg-325 mg Tab RxNorm: 1149861 1 Tablet(s) PO QID 12/14/2011 12/15/2011 Inactive TAKE 1 TABLET BY MOUTH FOUR TIMES DAILY (Appended: Controlled substance eRx refill - RxReferenceNumber: [id number]|1|0|1) Seroquel 100 mg tablet RxNorm: 090835 Tablet(s) PO 11/27/2011 03/15/2013 Inactive TAKE 1 TABLET BY MOUTH TWICE DAILY hydrocodone-acetaminophen 10 mg-325 mg Tab RxNorm: 1370858 1 Tablet(s) PO QID 11/27/2011 12/13/2011 Inactive TAKE 1 TABLET BY MOUTH FOUR TIMES DAILY (Appended: Controlled substance eRx refill - RxReferenceNumber: [id number]|1|0|1) Seroquel 100 mg Tab RxNorm: 928250 1 Tablet(s) PO BID 201111/26/2011 Inactive Seroquel 100 mg tablet RxNorm: 923042 Tablet(s) PO 11/27/2011 02/16/2012 Inactive TAKE 1 TABLET BY MOUTH TWICE DAILY Nexium 40 mg capsule,delayed release RxNorm: 815855 1 Capsule(s) PO daily 11/16/2011 02/15/2012 Inactive cyanocobalamin (vitamin B-12) 1,000 mcg/mL Injection RxNorm: 243973 1 Milliliter(s ) Inj 10/30/2011 10/30/2011 Inactive hydrocodone-acetaminophen 10 mg-325 mg Tab RxNorm: 0548087 1 Tablet(s) PO QID 10/13/2011 11/23/2011 Inactive TAKE 1 TABLET BY MOUTH FOUR TIMES DAILY (Appended: Controlled substance eRx refill - RxReferenceNumber: [id number]|1|0|1) Effexor XR 150 mg capsule,extended release RxNorm: 295503 1 Capsule(s) PO BID 10/12/2011 01/09/2012 Inactive Fish Oil 1,000 mg Cap RxNorm: 1 Capsule(s) PO QID 10/02/2011 No Stop Date Active Vitamin B-12 1,000 mcg/mL Injection RxNorm: 587836 Milliliter(s) Inj 10/02/2011 10/02/2011 Inactive Kenalog 40 mg/mL Susp for Injection RxNorm: 1624805 Milliliter(s) Inj 10/02/2011 10/02/2011 Inactive diazepam 10 mg Tab RxNorm: 816583 1 Tablet(s) PO daily 201112/13/2011 Inactive TAKE 1 TABLET BY MOUTH THREE TIMES DAILY (Appended: Controlled substance eRx refill - RxReferenceNumber: [id number]|1|0|1) Vitamin B-12 1,000 mcg/mL Injection RxNorm: 407776 Milliliter(s) Inj 09/01/2011 09/01/2011 Inactive hydrocodone-acetaminophen 10 mg-325 mg Tab RxNorm: 7393664 1 Tablet(s) PO QID 08/25/2011 10/05/2011 Inactive TAKE 1 TABLET BY MOUTH FOUR TIMES DAILY (Appended: Controlled substance eRx refill - RxReferenceNumber: [id number]|1|0|1) diazepam 10 mg Tab RxNorm: 445315 Tablet(s) PO 08/10/2011 No Stop Date Active TAKE 1 TABLET BY MOUTH THREE TIMES DAILY (Appended: Controlled substance eRx refill - RxReferenceNumber: [id number]|1|0|1) Vitamin B-12 1,000 mcg/mL Injection RxNorm: 923140 Milliliter(s) Inj 08/03/2011 08/03/2011 Inactive fluticasone 50 mcg/actuation Nasal [place], Susp RxNorm: 6992449 2 [place] NASAL BID 07/27/2011 08/19/2012 Inactive hydrocodone-acetaminophen 10 mg-325 mg Tab RxNorm: 4523272 Tablet(s) PO 07/09/2011 08/24/2011 Inactive TAKE 1 TABLET BY MOUTH FOUR TIMES DAILY (Appended: Controlled substance eRx refill - RxReferenceNumber: [id number]|1|0|1) diazepam 10 mg Tab RxNorm: 863857 Tablet(s) PO 07/09/2011 08/09/2011 Inactive TAKE 1 TABLET BY MOUTH THREE TIMES DAILY (Appended: Controlled substance eRx refill - RxReferenceNumber: [id number]|1|0|1) diazepam 10 mg Tab RxNorm: 872645 Tablet(s) PO 07/08/2011 07/08/2011 Inactive TAKE 1 TABLET BY MOUTH THREE TIMES DAILY (Appended: Controlled substance eRx refill - RxReferenceNumber: [id number]|1|0|1) hydrocodone-acetaminophen 10 mg-325 mg Tab RxNorm: 6670237 Tablet(s) PO 07/08/2011 07/08/2011 Inactive TAKE 1 TABLET BY MOUTH FOUR TIMES DAILY (Appended: Controlled substance eRx refill - RxReferenceNumber: [id number]|1|0|1) cyclobenzaprine 10 mg tablet RxNorm: 426892 Tablet(s) PO 201109/01/2012 Inactive TAKE ONE TABLET BY MOUTH THREE TIMES DAILY Lipitor 40 mg Tab RxNorm: 822156 1 Tablet(s) PO daily 201106/16/2011 Inactive Lipitor 40 mg Tab RxNorm: 214730 1 Tablet(s) PO daily 201106/10/2012 Inactive trazodone 100 mg tablet RxNorm: 941260 Tablet(s) PO 06/02/2011 06/05/2012 Inactive TAKE 2 TABLETS BY MOUTH EVERY NIGHT AT BEDTIME diazepam 10 mg Tab RxNorm: 456271 Tablet(s) PO 05/28/2011 05/29/2011 Inactive TAKE 1 TABLET BY MOUTH THREE TIMES DAILY (Appended: Controlled substance eRx refill - RxReferenceNumber: [id number]|1|0|1) diazepam 10 mg Tab RxNorm: 789865 Tablet(s) PO 05/28/2011 07/08/2011 Inactive TAKE 1 TABLET BY MOUTH THREE TIMES DAILY (Appended: Controlled substance eRx refill - RxReferenceNumber: [id number]|1|0|1) hydrocodone-acetaminophen 10 mg-325 mg Tab RxNorm: 0065907 1 Tablet(s) PO QID 05/26/2011 07/08/2011 Inactive metoprolol tartrate 25 mg tablet RxNorm: 563832 Tablet(s) PO 04/10/2012 Inactive TAKE 1/2 TABLET BY MOUTH TWICE DAILY Savella 100 mg tablet RxNorm: 040887 Tablet(s) PO 05/14/2011 10/13/2012 Inactive TAKE 1 TABLET BY MOUTH DAILY Influenza Virus Vaccine 0.5 mL RxNorm: IM 02/23/2011 02/23/2011 Inactive B12 1000 mcg RxNorm: IM 02/23/20112010 Inactive hydrocodone-acetaminophen 10 mg-325 mg Tab RxNorm: 0563083 1 Tablet(s) PO QID 01/29/2011 01/28/2011 Inactive Restasis 0.05 % eye drops in a dropperette RxNorm: 101052 1 OPH BID No Start Date Active vitamin A-vit C-vit E-zinc-Se Tab RxNorm: 1 Tablet(s) PO daily No Start Date Active garlic extract Oral RxNorm: Oral No Start Date Active Acidophilus Tab RxNorm : 2 Tablet(s) PO QHS No Start Date Active Cranberry Concentrate Cap RxNorm: 1 Capsule(s) PO BID No Start Date Active Xopenex 1.25 mg/3 mL Neb Solution RxNorm: 177395 1 Milliliter(s) INH TID No Start Date Active niacin ER 500 mg Tab RxNorm: 197188 2 Tablet(s) PO HS No Start Date Active SenokotXTRA 17.2 mg Tab RxNorm: 8402757 Oral No Start Date Active Lotemax 0.5 % eye ointment RxNorm: 7715669 1 OPH QHS No Start Date Active Gaviscon Extra Strength Oral RxNorm: Oral No Start Date Active melatonin 3 mg Tab RxNorm: 116620 1 Tablet(s) PO QHS No Start Date Active Voltaren 1 % Topical Gel RxNorm: 074683 4 Gram(s) TOP QID No Start Date Active Vitamin D 1,000 unit Cap RxNorm: 654973 1 Capsule(s) PO QHS No Start Date Active Mucinex DM 30 mg-600 mg 12 hr Tab RxNorm: 3049299 1 Tablet(s) PO BID No Start Date Active calcium citrate 200 mg (950 mg) Tab RxNorm: 665292 1 Tablet(s) PO QID No Start Date Active valerian 530 mg Cap RxNorm: 2 Capsule(s) PO QHS No Start Date Active Anucort-HC 25 mg Suppository RxNorm: 2713077 1 Suppository RTL QDAY PRN No Start Date 01/14/2014 Inactive Nexium 40 mg Capsule, delayed release RxNorm: 305817 1 Capsule(s) PO daily No Start Date 11/15/2011 Inactive Lipitor 20 mg tablet RxNorm: 094117 1 Tablet(s) PO QHS No Start Date 02/25/2012 Inactive mupirocin 2 % topical ointment RxNorm: 012504 1 Application TOP PRN No Start Date 10/16/2013 Inactive fluconazole 150 mg tablet RxNorm: 779178 1 Tablet(s) PO daily No Start Date 03/10/2012 Inactive Fish Oil 1,000 mg Cap RxNorm: 1 Capsule(s) PO TID No Start Date 10/01/2011 Inactive hydrocodone-acetaminophen 10 mg-325 mg Tab RxNorm: 9448334 1 Tablet(s) PO QID No Start Date 05/25/2011 Inactive Zithromax 250 mg tablet RxNorm: 779127 Tablet(s) PO No Start Date 07/20/2012 Inactive please give z lauro prednisone 10 mg tablet RxNorm: 157939 Tablet(s) PO taper. 6-5-4-3-2-1 # 21 No Start Date 09/16/2017 Inactive fluticasone 50 mcg/actuation Nasal [place], Susp RxNorm: 4426343 2 [place] NASAL BID No Start Date 07/26/2011 Inactive Seroquel 100 mg Tab RxNorm: 413862 1 Tablet(s) PO BID No Start Date 11/26/2011 Inactive nystatin 100,000 unit/gram topical powder RxNorm: 263722 1 Application TOP QID until healed No Start Date 10/26/2016 Inactive Savella 100 mg Tab RxNorm: 018637 1 Tablet(s) PO daily No Start Date 05/13/2011 Inactive cyclobenzaprine 10 mg Tab RxNorm: 226350 1 Tablet(s) PO TID No Start Date 07/05/2011 Inactive metoprolol tartrate 25 mg Tab RxNorm: 180359 1/2 Tablet(s) PO BID No Start Date 05/25/2011 Inactive trazodone 100 mg Tab RxNorm: 226228 2 Tablet(s) PO QHS No Start Date 06/01/2011 Inactive Zithromax Z-Lauro 250 mg tablet RxNorm: 680922 1 Tablet(s) PO UD No Start Date 07/11/2015 Inactive z lauro Effexor XR 150 mg 24 hr Cap RxNorm: 501630 1 Capsule(s) PO BID No Start Date 10/11/2011 Inactive diazepam 10 mg Tab RxNorm: 533071 1 Tablet(s) PO TID No Start Date 05/28/2011 Inactive tramadol 50 mg tablet RxNorm: 929035 1-2 Tablet(s) PO Q6 as needed No Start Date 05/28/2015 Inactive Medication Administered Medication Codes Instructions Start Date Status cyanocobalamin (vit B-12) 1,000 mcg/mL injection solution RxNorm: 896548 1Milliliter 03/10/2018 No longer Active cyanocobalamin (vit B-12) 1,000 mcg/mL injection solution RxNorm: 523808 1Milliliter 10/19/2017 No longer Active cyanocobalamin (vit B-12) 1,000 mcg/mL injection solution RxNorm: 769438 1Milliliter 08/19/2017 No longer Active cyanocobalamin (vit B-12) 1,000 mcg/mL injection solution RxNorm: 042220 1Milliliter 07/06/2017 No longer Active cyanocobalamin (vit B-12) 1,000 mcg/mL injection solution RxNorm: 225747 1Milliliter 04/27/2017 No longer Active cyanocobalamin (vit B-12) 1,000 mcg/mL injection solution RxNorm: 118530 1Milliliter 11/17/2016 No longer Active cyanocobalamin (vit B-12) 1,000 mcg/mL injection solution RxNorm: 618462 1Milliliter 10/12/2016 No longer Active cyanocobalamin (vit B-12) 1,000 mcg/mL injection solution RxNorm: 515365 1Milliliter 09/11/2016 No longer Active cyanocobalamin (vit B-12) 1,000 mcg/mL injection solution RxNorm: 309243 Milliliter 07/03/2016 No longer Active cyanocobalamin (vit B-12) 1,000 mcg/mL injection solution RxNorm: 603462 1Milliliter 04/20/2016 No longer Active cyanocobalamin (vit B-12) 1,000 mcg/mL injection solution RxNorm: 741757 Milliliter 02/13/2016 No longer Active cyanocobalamin (vit B-12) 1,000 mcg/mL injection solution RxNorm: 197195 1Milliliter 12/02/2015 No longer Active cyanocobalamin (vit B-12) 1,000 mcg/mL injection solution RxNorm: 828646 1Milliliter 10/29/2015 No longer Active cyanocobalamin (vit B-12) 1,000 mcg/mL injection solution RxNorm: 044614 Milliliter 06/10/2015 No longer Active cyanocobalamin (vit B-12) 1,000 mcg/mL injection solution RxNorm: 016483 Milliliter 02/15/2014 No longer Active cyanocobalamin (vit B-12) 1,000 mcg/mL injection kit RxNorm : 336973 1Milliliter 01/15/2014 No longer Active Kenalog 40 mg/mL suspension for injection RxNorm: 7738821 1Milliliter 01/15/2014 No longer Active cyanocobalamin (vit B-12) 1,000 mcg/mL injection solution RxNorm: 811994 1Milliliter 12/04/2013 No longer Active Vitamin B-12 1,000 mcg/mL injection solution RxNorm: 777458 Milliliter 07/24/2013 No longer Active Vitamin B-12 1,000 mcg/mL injection solution RxNorm: 438688 1Milliliter 05/10/2013 No longer Active Kenalog 40 mg/mL Susp for Injection RxNorm: 5778364 Milliliter 03/06/2013 No longer Active cyanocobalamin (vitamin B-12) 1,000 mcg/mL Injection RxNorm : 360760 Milliliter 02/20/2013 No longer Active Kenalog 40 mg/mL Susp for Injection RxNorm: 3316607 Milliliter 12/26/2012 No longer Active cyanocobalamin (vitamin B-12) 1,000 mcg/mL Injection RxNorm : 882291 Milliliter 12/21/2012 No longer Active Vitamin B-12 1,000 mcg/mL Injection RxNorm: 878668 1Milliliter 11/16/2012 No longer Active Tubersol 5 tub. unit/0.1 mL Intradermal RxNorm: 746747 Milliliter 09/26/2012 No longer Active cyanocobalamin (vitamin B-12) 1,000 mcg/mL Injection RxNorm : 321392 1Milliliter 09/12/2012 No longer Active Kenalog 40 mg/mL Susp for Injection RxNorm: 9485160 1Milliliter 08/11/2012 No longer Active Vitamin B-12 1,000 mcg/mL Injection RxNorm: 340403 1Milliliter 08/11/2012 No longer Active Vitamin B-12 1,000 mcg/mL Injection RxNorm: 108511 1Milliliter 07/13/2012 No longer Active Kenalog 40 mg/mL Susp for Injection RxNorm: 2785054 1Milliliter 01/13/2012 No longer Active Vitamin B-12 1,000 mcg/mL Injection RxNorm: 279340 Milliliter 12/21/2011 No longer Active cyanocobalamin (vitamin B-12) 1,000 mcg/mL Injection RxNorm : 120416 1Milliliter 10/30/2011 No longer Active Vitamin B-12 1,000 mcg/mL Injection RxNorm: 246151 Milliliter 10/02/2011 No longer Active Kenalog 40 mg/mL Susp for Injection RxNorm: 7497657 Milliliter 10/02/2011 No longer Active Vitamin B-12 1,000 mcg/mL Injection RxNorm: 704051 Milliliter 09/01/2011 No longer Active Vitamin B-12 1,000 mcg/mL Injection RxNorm: 523081 Milliliter 08/03/2011 No longer Active B12 1000 [...] back pain ICD-10: M54.5 ICD-9: 724.2 06/01/2018 Essential (primary) hypertension ICD-10: I10 ICD-9: 401.1 04/05/2018 Vitamin B12 deficiency anemia due to intrinsic factor deficiency ICD-10: D51.0 ICD-9: 281.0 04/05/2018 Major depressive disorder, recurrent, mild ICD-10: F33.0 ICD-9: 296.31 03/10/2018 Cervicalgia ICD-10: M54.2 ICD-9: 723.1 01/13/2018 Obstructive [...] knee ICD-10: M25.562 ICD-9: 719.46 09/06/2017 Vitamin D deficiency, unspecified [...] 2011 Weight gain ICD-9: 783.1 06/29/2011 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 Reason For Visit Reason [...] Item Item Code Result Date Comp Metabolic Enq521 NA 138 mEq/L 09/20/2017 Comp Metabolic Tow507 K 4.1 mEq/L 09/20/2017 Comp Metabolic Kjq449 CL 101 mEq/L 09/20/2017 Comp Metabolic Dlb483 CO2 25.0 mEq/L 09/20/2017 Comp Metabolic Sfk331 ANION GAP 16 09/20/2017 Comp Metabolic Hax704 GLUCOSE 105 mg/dL 09/20/2017 Comp Metabolic Iby246 Creat 0.8 mg/dL 09/20/2017 Comp Metabolic Hic433 eGFR 86 ml/min/1.73m2 09/20/2017 Comp Metabolic Oig149 BUN 24 mg/dL 09/20/2017 Comp Metabolic Orz775 B/C Ratio 31.6 Ratio 09/20/2017 Comp Metabolic Ihe334 CALCIUM 10.0 mg/dL 09/20/2017 Comp Metabolic Iak919 ALK PHOS 63 U/L 09/20/2017 Comp Metabolic Vkk299 AST(SGOT) 28 U/L 09/20/2017 Comp Metabolic Rlf833 ALT(SGPT) 34 U/L 09/20/2017 Comp Metabolic Grn238 BILI T 0.3 mg/dL 09/20/2017 Comp Metabolic Fmg466 ALBUMIN 4.8 g/dL 09/20/2017 Comp Metabolic Ekn671 TPRO 7.2 g/dL 09/20/2017 Comp Metabolic Muj249 GLOB 2.4 g/dL 09/20/2017 Comp Metabolic Xiw148 A/G Ratio 2.0 Ratio 09/20/2017 Comp Metabolic Sgg105 Osmo 280 mOsmo 09/20/2017 Urine Culture Ucult Preliminary NO Growth Day 1 09/20/2017 Urine Culture Ucult Complete NO Growth Day 2 09/20/2017 Vitamin D 25 Oh Vqa9339 VITAMIN D, 25 HYDROXY 46.43 ng/mL Comp Metabolic Wgh491 NA 143 mEq/L 08/25/2017 Comp Metabolic Yhs459 K 4.1 mEq/L 08/25/2017 Comp Metabolic Hqu955 CL 102 mEq/L 08/25/2017 Comp Metabolic Tiw916 CO2 33.0 mEq/L 08/25/2017 Comp Metabolic Pjg070 ANION GAP 12 08/25/2017 Comp Metabolic Cuk539 GLUCOSE 99 mg/dL 08/25/2017 Comp Metabolic Mpu802 Creat 0.8 mg/dL 08/25/2017 Comp Metabolic Fmq485 eGFR 86 ml/min/1.73m2 08/25/2017 Comp Metabolic Knn386 BUN 19 mg/dL 08/25/2017 Comp Metabolic Hqo103 B/C Ratio 25.0 Ratio 08/25/2017 Comp Metabolic Xco001 CALCIUM 9.5 mg/dL 08/25/2017 Comp Metabolic Cqt089 ALK PHOS 63 U/L 08/25/2017 Comp Metabolic Ymh954 AST(SGOT) 17 U/L 08/25/2017 Comp Metabolic Dty789 ALT(SGPT) 20 U/L 08/25/2017 Comp Metabolic Plm870 BILI T 0.3 mg/dL 08/25/2017 Comp Metabolic Yil838 ALBUMIN 4.5 g/dL 08/25/2017 Comp Metabolic Mca308 TPRO 6.6 g/dL 08/25/2017 Comp Metabolic Umf367 GLOB 2.1 g/dL 08/25/2017 Comp Metabolic Rqn582 A/G Ratio 2.1 Ratio 08/25/2017 Comp Metabolic Xhn026 Osmo 287 mOsmo 08/25/2017 B12 Erj770 B12 904.00 pg/ml 08/25/2017 Tsh Ord6 TSH [...] 103.4 fl 08/25/2017 Cbc With Differential Ord2 [place]% 7.5 % 08/25/2017 Cbc With Differential Ord2 [...] 3.65 K/ul 08/25/2017 Cbc With Differential Ord2 [place] ABS# 0.6 K/ul 08/25/2017 Cbc With Differential Ord2 Eos ABS# 0.1 K/ul 08/25/2017 Cbc With Differential Ord2 Baso ABS# 0.0 K/ul 08/25/2017 Tsh Ord6 hTSH II 1.18 uIU/mL 10/12/2016 Comp Metabolic Crv164 NA 139 mEq/L 10/12/2016 Comp Metabolic Zqr497 K 3.5 mEq/L 10/12/2016 Comp Metabolic Ieu628 CL 102 mEq/L 10/12/2016 Comp Metabolic Dkw424 CO2 25.0 mEq/L 10/12/2016 Comp Metabolic Buy917 ANION GAP 16 10/12/2016 Comp Metabolic Zfn636 GLUCOSE 84 mg/dL 10/12/2016 Comp Metabolic Xau906 Creat 0.6 mg/dL 10/12/2016 Comp Metabolic Ryl996 eGFR 105 ml/min/1.73m2 10/12/2016 Comp Metabolic Bct098 BUN 12 mg/dL 10/12/2016 Comp Metabolic Iyu519 B/C Ratio 18.8 Ratio 10/12/2016 Comp Metabolic Fch169 CALCIUM 9.2 mg/dL 10/12/2016 Comp Metabolic Lil025 ALK PHOS 59 U/L 10/12/2016 Comp Metabolic Aaj574 AST(SGOT) 21 U/L 10/12/2016 Comp Metabolic Reo292 ALT(SGPT) 27 U/L 10/12/2016 Comp Metabolic Sdn271 BILI T 0.2 mg/dL 10/12/2016 Comp Metabolic Dug849 ALBUMIN 4.4 g/dL 10/12/2016 Comp Metabolic Cpo664 TPRO 6.7 g/dL 10/12/2016 Comp Metabolic Qdq880 GLOB 2.3 g/dL 10/12/2016 Comp Metabolic Emj666 A/G Ratio 1.9 Ratio 10/12/2016 Comp Metabolic Jfk475 Osmo 276 mOsmo 10/12/2016 Cbc With Differential [...] 31.9 % 10/12/2016 Cbc With Differential Ord2 [place]% 8.0 % 10/12/2016 Cbc With Differential Ord2 [...] 3.12 K/ul 10/12/2016 Cbc With Differential Ord2 [place] ABS# 0.8 K/ul 10/12/2016 Cbc With Differential Ord2 Eos ABS# 0.1 K/ul 10/12/2016 Cbc With Differential Ord2 Baso ABS# 0.0 K/ul 10/12/2016 Lipid Ord30 CHOL 194 mg/dL 10/12/2016 Lipid Ord30 HDL 76.0 mg/dl 10/12/2016 Lipid Ord30 TRIG 159 mg/dL 10/12/2016 Lipid Ord30 LDL 86 mg/dL 10/12/2016 Lipid Ord30 C/HDL 2.6 Ratio 10/12/2016 Comp Metabolic Ysu181 NA 139 mEq/L 09/11/2016 Comp Metabolic Mpw291 K 3.6 mEq/L 09/11/2016 Comp Metabolic Vhn871 CL 102 mEq/L 09/11/2016 Comp Metabolic Tnu232 CO2 26.0 mEq/L 09/11/2016 Comp Metabolic Kdi080 ANION GAP 15 09/11/2016 Comp Metabolic Zdc386 GLUCOSE 90 mg/dL 09/11/2016 Comp Metabolic Fys535 Creat 0.6 mg/dL 09/11/2016 Comp Metabolic Bpp798 eGFR 111 ml/min/1.73m2 09/11/2016 Comp Metabolic Uad619 BUN 14 mg/dL 09/11/2016 Comp Metabolic Mkp130 B/C Ratio 23.0 Ratio 09/11/2016 Comp Metabolic Gsr732 CALCIUM 9.0 mg/dL 09/11/2016 Comp Metabolic Njg052 ALK PHOS 56 U/L 09/11/2016 Comp Metabolic Qtf225 AST(SGOT) 21 U/L 09/11/2016 Comp Metabolic Gxk107 ALT(SGPT) 17 U/L 09/11/2016 Comp Metabolic Glf711 BILI T 0.2 mg/dL 09/11/2016 Comp Metabolic Zjh171 ALBUMIN 4.1 g/dL 09/11/2016 Comp Metabolic Kpm657 TPRO 6.5 g/dL 09/11/2016 Comp Metabolic Kwp679 GLOB 2.4 g/dL 09/11/2016 Comp Metabolic Mjc010 A/G Ratio 1.7 Ratio 09/11/2016 Comp Metabolic Kpn856 Osmo 278 mOsmo 09/11/2016 Tsh Ord6 hTSH [...] 33.0 pg 09/11/2016 Cbc With Differential Ord2 [place]% 8.6 % 09/11/2016 Cbc With Differential Ord2 [...] 3.35 K/ul 09/11/2016 Cbc With Differential Ord2 [place] ABS# 1.0 K/ul 09/11/2016 Cbc With Differential Ord2 Eos ABS# 0.1 K/ul 09/11/2016 Cbc With Differential Ord2 Baso ABS# 0.0 K/ul 09/11/2016 Lipid Ord30 CHOL 168 mg/dL 09/11/2016 Lipid Ord30 HDL 74.0 mg/dl 09/11/2016 Lipid Ord30 TRIG 167 mg/dL 09/11/2016 Lipid Ord30 LDL 61 mg/dL 09/11/2016 Lipid Ord30 C/HDL 2.3 Ratio 09/11/2016 B12 Dvm601 B12 474.00 pg/ml 09/11/2016 B12 Jlv668 B12 827.00 pg/ml 03/02/2016 Cbc With Differential [...] 108.3 fl 02/28/2016 Cbc With Differential Ord2 [place]% 5.4 % 02/28/2016 Cbc With Differential Ord2 [...] 2.08 K/ul 02/28/2016 Cbc With Differential Ord2 [place] ABS# 0.3 K/ul 02/28/2016 Cbc With Differential Ord2 Eos ABS# 0.1 K/ul 02/28/2016 Cbc With Differential Ord2 Baso ABS# 0.0 K/ul 02/28/2016 Sed Rate Ord21 ESR 5 mm/hr 02/28/2016 C-Reactive Protein Qnt Crqnt CRP 0.1 mg/dl 02/28/2016 Comp Metabolic Lqb243 NA 136 mEq/L 02/28/2016 Comp Metabolic Imd798 K 4.0 mEq/L 02/28/2016 Comp Metabolic Mon193 CL 103 mEq/L 02/28/2016 Comp Metabolic Dor168 CO2 27.0 mEq/L 02/28/2016 Comp Metabolic Uin328 ANION GAP 10 02/28/2016 Comp Metabolic Gdr253 GLUCOSE 138 mg/dL 02/28/2016 Comp Metabolic Npt482 Creat 0.6 mg/dL 02/28/2016 Comp Metabolic Das897 eGFR 120 ml/min/1.73m2 02/28/2016 Comp Metabolic Oqc248 BUN 15 mg/dL 02/28/2016 Comp Metabolic Tpy108 B/C Ratio 26.3 Ratio 02/28/2016 Comp Metabolic Oax719 CALCIUM 8.8 mg/dL 02/28/2016 Comp Metabolic Zqz587 ALK PHOS 58 U/L 02/28/2016 Comp Metabolic Ekh228 AST(SGOT) 21 U/L 02/28/2016 Comp Metabolic Lhw992 ALT(SGPT) 21 U/L 02/28/2016 Comp Metabolic Qou209 BILI T 0.2 mg/dL 02/28/2016 Comp Metabolic Elz367 ALBUMIN 3.8 g/dL 02/28/2016 Comp Metabolic Tfb750 TPRO 5.7 g/dL 02/28/2016 Comp Metabolic Fgk941 GLOB 1.9 g/dL 02/28/2016 Comp Metabolic Ifq662 A/G Ratio 2.0 Ratio 02/28/2016 Comp Metabolic Lcn536 Osmo 275 mOsmo 02/28/2016 Tsh Ord6 hTSH II 1.25 uIU/mL 02/28/2016 B12 Seh895 B12 >1500.00 pg/ml 01/11/2016 Vitamin D 25 Oh Rth8206 VITAMIN D, 25 HYDROXY 45.94 ng/mL Comp Metabolic Usc374 NA 136 mEq/L 03/21/2015 Comp Metabolic Pez308 K 3.8 mEq/L 03/21/2015 Comp Metabolic Mcj560 CL 101 mEq/L 03/21/2015 Comp Metabolic Dpv987 CO2 31.0 mEq/L 03/21/2015 Comp Metabolic Wao754 ANION GAP 8 03/21/2015 Comp Metabolic Hpf062 GLUCOSE 101 mg/dL 03/21/2015 Comp Metabolic Zfd391 Creat 0.7 mg/dL 03/21/2015 Comp Metabolic Whs727 eGFR 94 ml/min/1.73m2 03/21/2015 Comp Metabolic Qsi442 BUN 13 mg/dL 03/21/2015 Comp Metabolic Ilb925 B/C Ratio 18.3 Ratio 03/21/2015 Comp Metabolic Dhc691 CALCIUM 9.3 mg/dL 03/21/2015 Comp Metabolic Oha864 ALK PHOS 58 U/L 03/21/2015 Comp Metabolic Ohk055 AST(SGOT) 18 U/L 03/21/2015 Comp Metabolic Lky627 ALT(SGPT) 22 U/L 03/21/2015 Comp Metabolic Zva488 BILI T 0.3 mg/dL 03/21/2015 Comp Metabolic Ykc774 ALBUMIN 4.4 g/dL 03/21/2015 Comp Metabolic Gob331 TPRO 6.7 g/dL 03/21/2015 Comp Metabolic Jty506 GLOB 2.3 g/dL 03/21/2015 Comp Metabolic Wss581 A/G Ratio 1.9 Ratio 03/21/2015 Comp Metabolic Eok470 Osmo 272 mOsmo 03/21/2015 %Hba1C Kqu395 % HbA1c 68146-2 5.4 % 03/21/2015 %Hba1C Vey699 Gluc Ave 108 mg/dL 03/21/2015 Cbc With [...] 1.32 uIU/mL 03/21/2015 URINALYSIS NONAUTO W/O SCOPE 48591 Specific [place] 1.025 DateTime(Free Text in Aprima) URINALYSIS NONAUTO W/O SCOPE 54492 PH 5.0 DateTime(Free Text in Aprima) URINALYSIS NONAUTO W/O SCOPE 78258 GLUCOSE NEG DateTime( Free Text in Aprima) URINALYSIS NONAUTO W/O SCOPE 40641 Protein NEG DateTime( Free Text in Aprima) URINALYSIS NONAUTO W/O SCOPE 95248 Blood NEG DateTime(Free Text in Aprima) URINALYSIS NONAUTO W/O SCOPE 30082 Bilirubin NEG DateTime(Free Text in Aprima) URINALYSIS NONAUTO W/O SCOPE 62209 Ketones NEG DateTime( Free Text in Apr[employer]) URINALYSIS NONAUTO W/O SCOPE 73842 Urobilinogen NEG DateTime(Free Text in Aprima) URINALYSIS NONAUTO W/O SCOPE 75905 Nitrite NEG DateTime( Free Text in Aprima) URINALYSIS NONAUTO W/O SCOPE 15745 Leukocytes NEG DateTime(Free Text in Aprima) Review [...] Procedure Codes Date THER/PROPH/DIAG INJ SC/IM CPT-4: 24301 04/05/2018 VITAMIN B12 INJECTION CPT-4: J3420 04/05/2018 THER/PROPH/DIAG INJ SC/IM CPT-4: 24211 03/10/2018 VITAMIN B12 INJECTION CPT-4: J3420 03/10/2018 THER/PROPH/DIAG INJ SC/IM CPT-4: 51901 10/19/2017 VITAMIN B12 INJECTION CPT-4: J3420 10/19/2017 URINALYSIS NONAUTO W/O SCOPE CPT-4: 47003 09/17/2017 THER/PROPH/DIAG INJ SC/IM CPT-4: 88908 08/19/2017 VITAMIN B12 INJECTION CPT-4: J3420 08/19/2017 THER/PROPH/DIAG INJ SC/IM CPT-4: 35683 07/06/2017 VITAMIN B12 INJECTION CPT-4: J3420 07/06/2017 THER/PROPH/DIAG INJ SC/IM CPT-4: 12031 04/27/2017 VITAMIN B12 INJECTION CPT-4: J3420 04/27/2017 THER/PROPH/DIAG INJ SC/IM CPT-4: 48278 11/17/2016 VITAMIN B12 INJECTION CPT-4: J3420 11/17/2016 THER/PROPH/DIAG INJ SC/IM CPT-4: 12822 10/12/2016 VITAMIN B12 INJECTION CPT-4: J3420 10/12/2016 THER/PROPH/DIAG INJ SC/IM CPT-4: 46372 09/11/2016 VITAMIN B12 INJECTION CPT-4: J3420 09/11/2016 THER/PROPH/DIAG INJ SC/IM CPT-4: 69562 07/03/2016 VITAMIN B12 INJECTION CPT-4: J3420 07/03/2016 VITAMIN B12 INJECTION CPT-4: J3420 04/20/2016 THER/PROPH/DIAG INJ SC/IM CPT-4: 18460 04/20/2016 ADMIN INFLUENZA VIRUS VAC CPT-4: G0008 03/17/2016 IIV4 FLU VACC NO PRESERV ID Formatting Model/CDA Sections, Assigned to/Kathy Lopez CT: [id number] CPT-4: 95214Gsonmlc 03/17/2016 THER/PROPH/DIAG INJ SC/IM CPT-4: 04856 02/13/2016 VITAMIN B12 INJECTION CPT-4: J3420 02/13/2016 URINALYSIS NONAUTO W/O SCOPE CPT-4: 82857 12/10/2015 THER/PROPH/DIAG INJ SC/IM CPT-4: 87862 12/02/2015 VITAMIN B12 INJECTION CPT-4: J3420 12/02/2015 PNEUMOCOCCAL VACC [address]: [id number] CPT-4: 02390 12/02/2015 IMMUNIZATION ADMIN CPT -4: 98266 12/02/2015 THER/PROPH/DIAG INJ SC/IM CPT-4: 25291 10/29/2015 VITAMIN B12 INJECTION CPT-4: J3420 10/29/2015 THER/PROPH/DIAG INJ SC/IM CPT-4: 14584 06/10/2015 VITAMIN B12 INJECTION CPT-4: J3420 06/10/2015 THER/PROPH/DIAG INJ SC/IM CPT-4: 63522 02/15/2014 VITAMIN B12 INJECTION CPT-4: J3420 02/15/2014 TRIAMCINOLONE ACET INJ NOS CPT-4: J3301 01/15/2014 VITAMIN B12 INJECTION CPT-4: J3420 01/15/2014 THER/PROPH/DIAG INJ SC/IM CPT-4: 97996 12/04/2013 VITAMIN B12 INJECTION CPT-4: J3420 12/04/2013 THER/PROPH/DIAG INJ SC/IM CPT-4: 94777 07/24/2013 VITAMIN B12 INJECTION CPT-4: J3420 07/24/2013 PRESCRIP TRANSMIT VIA ERX SY CPT-4: G8553 06/12/2013 VITAMIN B12 INJECTION CPT-4: J3420 05/10/2013 THER/PROPH/DIAG INJ SC/IM CPT-4: 37624 05/10/2013 TRIAMCINOLONE ACET INJ NOS CPT-4: J3301 03/06/2013 PRESCRIP TRANSMIT VIA ERX SY CPT-4: G8553 03/06/2013 ADMIN INFLUENZA VIRUS VAC CPT-4: G0008 02/20/2013 FLULAVAL VACC, 3 YRS & >, IM CPT-4: Q2036 02/20/2013 THER/PROPH/DIAG INJ SC/IM CPT-4: 60224 02/20/2013 VITAMIN B12 INJECTION CPT-4: J3420 02/20/2013 THER/PROPH/DIAG INJ SC/IM CPT-4: 78149 12/26/2012 TRIAMCINOLONE ACET INJ NOS CPT-4: J3301 12/26/2012 THER/PROPH/DIAG INJ SC/IM CPT-4: 78924 12/21/2012 VITAMIN B12 INJECTION CPT-4: J3420 12/21/2012 THER/PROPH/DIAG INJ SC/IM CPT-4: 76866 11/16/2012 VITAMIN B12 INJECTION CPT-4: J3420 11/16/2012 TB INTRADERMAL TEST (includes injection fee) CPT-4: 60984 09/26/2012 THER/PROPH/DIAG INJ SC/IM CPT-4: 77502 09/12/2012 VITAMIN B12 INJECTION CPT-4: J3420 09/12/2012 TRIAMCINOLONE ACET INJ NOS CPT-4: J3301 08/11/2012 VITAMIN B12 INJECTION CPT-4: J3420 08/11/2012 THER/PROPH/DIAG INJ SC/IM CPT-4: 40885 08/11/2012 VITAMIN B12 INJECTION CPT-4: J3420 07/13/2012 THER/PROPH/DIAG INJ SC/IM CPT-4: 26271 07/13/2012 THER/PROPH/DIAG INJ SC/IM CPT-4: 58168 05/26/2012 TRIAMCINOLONE ACET INJ NOS CPT-4: J3301 05/26/2012 VITAMIN B12 INJECTION CPT-4: J3420 05/26/2012 ADMIN INFLUENZA VIRUS VAC CPT-4: G0008 03/02/2012 FLULAVAL VACC, 3 YRS & >, IM CPT-4: Q2036 03/02/2012 PRESCRIP TRANSMIT VIA ERX SY CPT-4: G8553 02/15/2012 TRIAMCINOLONE ACET INJ NOS CPT-4: J3301 01/13/2012 VITAMIN B12 INJECTION CPT-4: J3420 12/21/2011 VITAMIN B12 INJECTION CPT-4: J3420 10/30/2011 THER/PROPH/DIAG INJ SC/IM CPT-4: 57067 10/30/2011 THER/PROPH/DIAG INJ SC/IM CPT-4: 39896 10/02/2011 VITAMIN B12 INJECTION CPT-4: J3420 10/02/2011 TRIAMCINOLONE ACET INJ NOS CPT-4: J3301 10/02/2011 PRESCRIP TRANSMIT VIA ERX SY CPT-4: G8553 10/02/2011 VITAMIN B12 INJECTION CPT-4: J3420 09/01/2011 URINALYSIS NONAUTO W/O SCOPE CPT-4: 43923 08/03/2011 VITAMIN B12 INJECTION CPT-4: J3420 08/03/2011 THER/PROPH/DIAG INJ SC/IM CPT-4: 18154 08/03/2011 THER/PROPH/DIAG INJ SC/IM CPT-4: 23576 06/11/2011 VITAMIN B12 INJECTION CPT-4: J3420 06/11/2011 ROUTINE VENIPUNCTURE CPT-4: 00851 06/11/2011 THER/PROPH/DIAG INJ SC/IM CPT-4: 20542 02/23/2011 VITAMIN B12 INJECTION CPT-4: J3420 02/23/2011 ADMIN INFLUENZA VIRUS VAC CPT-4: G0008 02/23/2011 FLULAVAL VACC, 3 YRS & >, IM CPT-4: Q2036 02/23/2011 Vital Signs Date Vital 06/16/2018 Blood Pressure 1: 132/78 Code : 8480-6 Heart Rate 1: 120 bpm Height: 5'9" SpO2: 98% Weight: 06/01/2018 Blood Pressure 1: 138/70 Code : 8480-6 BMI: 30.9 Code : 84351-4 Heart Rate 1 : 120 bpm Height: 5'9" Respiratory Rate: 18 bpm SpO2: 96% Weight: 209 lbs 04/05/2018 Blood Pressure 1: 144/80 Code : 8480-6 BMI: 30.9 Code : 99197-7 Heart Rate 1 : 118 bpm Height: 5'9" SpO2: 98% Weight: 209 lbs 03/10/2018 Blood Pressure 1: 128/82 Code : 8480-6 Blood Pressure 1: 162/74 Code: 8480-6 BMI: 30.3 Code: 81001-8 Heart Rate 1: 101 bpm Height: 5'9" SpO2: 98% Weight: 205 lbs 01/13/2018 Blood Pressure 1: 102/78 Code : 8480-6 BMI: 31.6 Code : 11858-3 Heart Rate 1 : 103 bpm Height: 5'9" SpO2: 98% Weight: 214 lbs 11/25/2017 Blood Pressure 1: 114/80 Code : 8480-6 BMI: 30.3 Code : 75491-7 Heart Rate 1 : 112 bpm Height: 5'9" SpO2: 98% Weight: 205 lbs 10/19/2017 Blood Pressure 1: 110/70 Code : 8480-6 BMI: 30.7 Code : 60041-7 Heart Rate 1 : 102 bpm Height: 5'9" SpO2: 97% Weight: 208 lbs 09/17/2017 Blood Pressure 1: 132/78 Code : 8480-6 BMI: 30.4 Code : 83647-0 Heart Rate 1 : 117 bpm Height: 5'9" SpO2: 97% Weight: 206 lbs 09/06/2017 Blood Pressure 1: 110/78 Code : 8480-6 BMI: 29.8 Code : 62990-7 Heart Rate 1 : 106 bpm Height: 5'9" SpO2: 97% Weight: 202 lbs 08/19/2017 Blood Pressure 1: 136/72 Code : 8480-6 BMI: 30.4 Code : 49277-2 Heart Rate 1 : 108 bpm Height: 5'9" SpO2: 94% Weight: 206 lbs 07/06/2017 Blood Pressure 1: 154/80 Code : 8480-6 Heart Rate 1: 111 bpm Height: 5'9" Respiratory Rate: 20 bpm SpO2: 98% Weight: 04/27/2017 Blood Pressure 1: 138/78 Code : 8480-6 BMI: 30.4 Code : 86950-6 Heart Rate 1 : 96 bpm Height: 5'9" SpO2: 97% Weight: 206 lbs 04/06/2017 Blood Pressure 1: 108/80 Code : 8480-6 BMI: 31.0 Code : 45728-0 Heart Rate 1 : 96 bpm Height: 5'9" SpO2: 98% Weight: 210 lbs 02/25/2017 Blood Pressure 1: 132/80 Code : 8480-6 BMI: 32.5 Code : 46481-6 Heart Rate 1 : 112 bpm Height: 5'9" SpO2: 94% Weight: 220 lbs 01/19/2017 Blood Pressure 1: 122/68 Code : 8480-6 Heart Rate 1: 100 bpm Height: 5'9" SpO2: 95% Weight: 11/17/2016 Blood Pressure 1: 132/74 Code : 8480-6 BMI: 32.2 Code : 15004-8 Heart Rate 1 : 98 bpm Height: 5'9" SpO2: 94% Weight: 218 lbs 10/12/2016 Blood Pressure 1: 130/82 Code : 8480-6 BMI: 32.2 Code : 24190-9 Heart Rate 1 : 97 bpm Height: 5'9" SpO2: 94% Weight: 218 lbs 08/18/2016 Blood Pressure 1: 132/78 Code : 8480-6 BMI: 32.0 Code : 89175-8 Heart Rate 1 : 113 bpm Height: 5'9" SpO2: 98% Weight: 217 lbs 08/07/2016 Blood Pressure 1: 126/70 Code : 8480-6 BMI: 33.1 Code : 08831-5 Heart Rate 1 : 102 bpm Height: 5'9" SpO2: 94% Weight: 224 lbs 07/31/2016 Blood Pressure 1: 134/66 Code : 8480-6 BMI: 31.7 Code : 82869-4 Heart Rate 1 : 97 bpm Height: 5'9" SpO2: 95% Temperature: 36.4 (C) / 97.6 (F) Weight: 215 lbs 07/15/2016 Blood Pressure 1: 126/62 Code : 8480-6 Heart Rate 1: 105 bpm Height: 5'9" Weight: 07/07/2016 Blood Pressure 1: 106/54 Code : 8480-6 BMI: 31.7 Code : 73818-7 Heart Rate 1 : 93 bpm Height: 5'9" SpO2: 97% Weight: 215 lbs 06/25/2016 Heart Rate 1: 99 bpm Height: 5'9" SpO2: 95% Weight: 05/07/2016 Blood Pressure 1: 124/86 Code : 8480-6 BMI: 28.5 Code : 52716-4 Heart Rate 1 : 100 bpm Height: 5'9" SpO2: 96% Weight: 193 lbs 04/20/2016 Blood Pressure 1: 120/80 Code : 8480-6 BMI: 28.5 Code : 03272-6 Heart Rate 1 : 86 bpm Height: 5'9" SpO2: 96% Weight: 193 lbs 03/17/2016 Blood Pressure 1: 120/70 Code : 8480-6 BMI: 29.1 Code : 91976-0 Heart Rate 1 : 103 bpm Height: 5'9" SpO2: 96% Weight: 197 lbs 03/05/2016 Blood Pressure 1: 124/78 Code : 8480-6 Heart Rate 1: 82 bpm Height: 5'9" SpO2: 94% Weight: 02/28/2016 Blood Pressure 1: 94/50 Code : 8480-6 Heart Rate 1: 91 bpm Height: 5'9" SpO2: 94% Weight: 02/13/2016 Blood Pressure 1: 128/86 Code : 8480-6 BMI: 28.6 Code : 69704-3 Heart Rate 1 : 100 bpm Height: 5'9" SpO2: 96% Weight: 194 lbs 08/15/2015 Blood Pressure 1: 128/68 Code : 8480-6 BMI: 27.3 Code : 78188-6 Heart Rate 1 : 72 bpm Height: 5'9" SpO2: 92% Weight: 185 lbs 07/25/2015 Blood Pressure 1: 122/76 Code : 8480-6 BMI: 27.5 Code : 12205-5 Heart Rate 1 : 70 bpm Height: 5'9" SpO2: 94% Weight: 186 lbs 06/25/2015 Blood Pressure 1: 118/54 Code : 8480-6 BMI: 26.7 Code : 99931-0 Heart Rate 1 : 98 bpm Height: 5'9" SpO2: 97% Weight: 181 lbs 06/10/2015 Blood Pressure 1: 110/68 Code : 8480-6 Heart Rate 1: 80 bpm Height: SpO2: 98% Weight: 05/08/2015 Blood Pressure 1: 120/68 Code : 8480-6 BMI: 27.5 Code : 56632-6 Heart Rate 1 : 95 bpm Height: 5'9" SpO2: 96% Weight: 186 lbs 03/26/2015 Blood Pressure 1: 120/80 Code : 8480-6 Heart Rate 1: 102 bpm Respiratory Rate: 18 bpm SpO2: 92% Weight: 186 lbs 03/15/2015 Blood Pressure 1: 122/64 Code : 8480-6 BMI: 26.6 Code : 41179-6 Heart Rate 1 : 96 bpm Height: 5'9" SpO2: 96% Weight: 180 lbs 01/10/2015 Blood Pressure 1: 120/68 Code : 8480-6 BMI: 27.5 Code : 46350-3 Heart Rate 1 : 90 bpm Height: 5'9" Weight: 186 lbs 12/21/2014 Blood Pressure 1: 118/78 Code : 8480-6 BMI: 27.2 Code : 50475-0 Heart Rate 1 : 61 bpm Height: 5'9" SpO2: 97% Weight: 184 lbs 10/05/2014 Blood Pressure 1: 118/64 Code : 8480-6 BMI: 27.0 Code : 29295-7 Heart Rate 1 : 76 bpm Height: 5'9" Weight: 183 lbs 06/14/2014 Blood Pressure 1: 120/78 Code : 8480-6 BMI: 26.6 Code : 20637-4 Heart Rate 1 : 96 bpm Height: 5'9" Weight: 180 lbs 01/19/2014 Blood Pressure 1: 128/76 Code : 8480-6 BMI: 27.3 Code : 54023-9 Heart Rate 1 : 82 bpm Height: 5'9" Weight: 185 lbs 01/15/2014 Blood Pressure 1: 110/62 Code : 8480-6 BMI: 27.9 Code : 79611-8 Heart Rate 1 : 80 bpm Height: 5'9" Weight: 189 lbs 10/20/2013 Blood Pressure 1: 11262 Code : 8480-6 BMI: 30.1 Code : 01870-4 Heart Rate 1 : 76 bpm Height: [...] Code : 8480-6 BMI: 30.6 Code : 29176-0 Heart Rate 1 : 92 bpm Height: 5'9" Weight: 207 lbs 05/23/2013 Blood Pressure 1: 120/78 Code : 8480-6 Heart Rate 1: 84 bpm Weight: 05/19/2013 Blood Pressure 1: 126/78 Code : 8480-6 BMI: 30.3 Code : 05040-5 Heart Rate 1 : 88 bpm Height: 5'9" Weight: 205 lbs 05/16/2013 Blood Pressure 1: 126/66 Code : 8480-6 BMI: 30.3 Code : 17152-7 Heart Rate 1 : 84 bpm Height: 5'9" Weight: 205 lbs 03/06/2013 Blood Pressure 1: 128/76 Code : 8480-6 BMI: 30.6 Code : 94195-6 Heart Rate 1 : 88 bpm Height: 5'9" Weight: 207 lbs 12/26/2012 Blood Pressure 1: 142/70 Code : 8480-6 BMI: 29.6 Code : 17102-0 Heart Rate 1 : 100 bpm Height: 5'9" Weight: 200 lbs 8 oz 11/21/2012 Blood Pressure 1: 132/80 Code : 8480-6 BMI: 29.5 Code : 87764-0 Heart Rate 1 : 96 bpm Height: [...] Code : 8480-6 BMI: 29.2 Code : 04881-8 Heart Rate 1 : 64 bpm Height: 5'9" Respiratory Rate: 16 bpm Weight: 198 lbs 03/11/2011 Blood Pressure 1: 106/60 Code : 8480-6 BMI: 28.8 Code : 78974-2 Heart Rate 1 : 100 bpm Height: 5'9" SpO2: 97% Weight: 195 lbs 02/12/2011 Weight: 192 lbs 01/29/2011 Blood Pressure 1: 100/64 Code : 8480-6 BMI: 28.1 Code : 07290-0 Heart Rate 1 : 100 bpm Height: [...] Hospital Follow Up _ pain 05/16/2013 left [id number] to left knee-applying neosporin and covering with [...] pt to have a study done at [facility] [id number] shortness of breath Triggers exertion 03/11/2011 None [...] 02/12/2011 and pt went to her chiropractor/ kiln stoker this week and was" worked on" and she has been feeling better shortness of breath Alleviating Factors rest 02/12/2011 pt states that her shortness of breath got better after her kiln stoker adjusted her pelvis gastroesophageal reflux Quality heartburn [...] data Encounters Encounter Performer Location Codes Date ([id number]) 33053 EST. PATIENT, LEVEL III Diagnosis: Acute upper respiratory infection, unspecified[ICD10: J06.9] Diagnosis: Generalized anxiety disorder[ICD10: F41.1] Valentina Thomspon MD, [facility] CPT-4: 86993 06/16/2018 [id number]) 66941 EST. PATIENT, LEVEL IV Diagnosis: Chronic pain syndrome[ICD10: G89.4] Diagnosis: Generalized anxiety disorder[ICD10: F41.1] Diagnosis: Low back pain[ICD10: M54.5] Diagnosis: Essential (primary) hypertension[ICD10: I10] Aicha Thompson MD, [facility] CPT-4: 21674 06/01/2018 ([id number]) 23072 EST. PATIENT, LEVEL IV Diagnosis: Essential (primary) hypertension[ICD10: I10] Diagnosis: Chronic pain syndrome[ICD10: G89.4] Diagnosis: Vitamin B12 deficiency anemia due to intrinsic factor deficiency[ ICD10: D51.0] Aicha Thompson MD, [facility] CPT-4: 70147 04/05/2018 ([id number]) 22261 EST. PATIENT, LEVEL IV Diagnosis: Essential (primary) hypertension[ICD10: I10] Diagnosis: Generalized anxiety disorder[ICD10: F41.1] Diagnosis: Major depressive disorder, recurrent, mild[ICD10: F33.0] Diagnosis: Vitamin B12 deficiency anemia due to intrinsic factor deficiency[ ICD10: D51.0] Valentina Thompson MD, [facility] CPT-4: 50169 03/10/2018 ([id number]) 94563 EST. PATIENT, LEVEL IV Diagnosis: Headache[ICD10: R51] Diagnosis: Obstructive sleep apnea (adult) (pediatric)[ICD10: G47.33] Diagnosis: Cervicalgia[ICD10: M54.2] Valentina Thompson MD, [facility] CPT-4: 27504 01/13/2018 ([id number]) 77858 EST. PATIENT, LEVEL IV Diagnosis: Headache[ICD10: R51] Diagnosis: Spinal stenosis, cervical region[ICD10: M48.02] Diagnosis: Major depressive disorder, recurrent, mild[ICD10: F33.0] Valentina Thompson MD , [facility] CPT-4: 66134 11/25/2017 ([id number]) 50287 EST. PATIENT, LEVEL III Diagnosis: Allergic contact dermatitis due to plants, except food[ICD10: L23.7] Diagnosis: Vitamin B12 deficiency anemia due to intrinsic factor deficiency[ ICD10: D51.0] Valentina Thompson MD, [facility] CPT-4: 01301 10/19/2017 ([id number]) 20847 EST. PATIENT, LEVEL IV Diagnosis: Generalized abdominal pain[ICD10: R10.84] Diagnosis: Urinary tract infection, site not specified[ICD10: N39.0] Diagnosis: Hypokalemia[ICD10: E87.6] Valentina Thompson MD, [facility] CPT-4: 44313 09/17/2017 ([id number]) 77523 EST. PATIENT, LEVEL IV Diagnosis: Chronic pain syndrome[ICD10: G89.4] Diagnosis: Pain in left knee[ICD10: M25.562] Diagnosis: Pain in right knee[ICD10: M25.561] Diagnosis: Essential (primary) hypertension[ICD10: I10] Aicha Thompson MD, [facility] CPT-4: 45372 09/06/2017 ([id number]) 92714 EST. PATIENT, LEVEL IV Diagnosis: Headache[ICD10: R51] Diagnosis: Chronic pain syndrome[ICD10: G89.4] Diagnosis: Mixed hyperlipidemia[ICD10: E78.2] Diagnosis: Vitamin D deficiency, unspecified[ICD10: E55.9] Diagnosis: Vitamin B12 deficiency anemia, unspecified[ICD10: D51.9] Valentina Thompson MD , [facility] CPT-4: 75021 08/19/2017 21332 EST. PATIENT, LEVEL V Diagnosis: Essential (primary) hypertension[ICD10: I10] Diagnosis: Vitamin B12 deficiency anemia due to intrinsic factor deficiency[ ICD10: D51.0] Diagnosis: Chronic pain syndrome[ICD10: G89.4] Aicha Thompson MD, [facility] CPT-4: 58818 07/06/2017 ([id number]) 85373 EST. PATIENT, LEVEL IV Diagnosis: Cervicalgia[ICD10: M54.2] Diagnosis: Laceration without foreign body of scalp, initial encounter[ICD10: S01.01XA] Diagnosis: Vitamin B12 deficiency anemia due to intrinsic factor deficiency[ ICD10: D51.0] Valentina Thompson MD, [facility] CPT-4: 41001 04/27/2017 41555 EST. PATIENT, LEVEL II Diagnosis: Residual hemorrhoidal skin tags[ICD10: K64.4] Valentina Thompson MD, [facility] CPT-4: 97372 04/06/2017 ([id number]) 35864 EST. PATIENT, LEVEL III Diagnosis: Pain in right foot[ICD10: M79.671] Diagnosis: Pain in left foot[ICD10: M79.672] Diagnosis: Cervicalgia[ICD10: M54.2] Valentina Thompson MD, [facility] CPT-4: 75512 02/25/2017 ([id number]) 62711 EST. PATIENT, LEVEL IV Diagnosis: Essential (primary) hypertension[ICD10: I10] Diagnosis: Chronic pain syndrome[ICD10: G89.4] Diagnosis: Spinal stenosis, cervical region[ICD10: M48.02] Diagnosis: Pain in right leg[ICD10: M79.604] Valentina Thompson MD, [facility] CPT-4: 18013 01/19/2017 ([id number]) 27933 EST. PATIENT, LEVEL III Diagnosis: Pain in right foot[ICD10: M79.671] Diagnosis: Pain in left foot[ICD10: M79.672] Diagnosis: Chronic pain syndrome[ICD10: G89.4] Diagnosis: Vitamin B12 deficiency anemia, unspecified[ICD10: D51.9] Valentina Thompson MD , [facility] CPT-4: 53212 11/17/2016 [id number]) 07605 EST. PATIENT, LEVEL IV Diagnosis: Essential (primary) hypertension[ICD10: I10] Diagnosis: Chronic pain syndrome[ICD10: G89.4] Diagnosis: Foot drop, right foot[ICD10: M21.371] Diagnosis: Foot drop, left foot[ICD10: M21.372] Diagnosis: Other abnormalities of gait and mobility[ICD10: R26.89] Diagnosis: Vitamin B12 deficiency anemia due to intrinsic factor deficiency[ ICD10: D51.0] Aicha Thompson MD, [facility] CPT-4: 12127 10/12/2016 ([id number]) 39917 EST. PATIENT, LEVEL III Diagnosis: Pain in right ankle and joints of right foot[ICD10: M25.571] Diagnosis: Superficial foreign body, right foot, initial encounter[ICD10: S90.851A] Valentina Thompson MD, [facility] CPT-4: 25975 ([id number]) 66136 EST. PATIENT, LEVEL III Diagnosis: Candidiasis of vulva and vagina[ICD10: B37.3] Diagnosis: Vitamin B12 deficiency anemia, unspecified[ICD10: D51.9] Valentina Thompson MD , [facility] CPT-4: 08034 08/07/2016 ([id number]) 92529 EST. PATIENT, LEVEL III Diagnosis: Spinal stenosis, cervical region[ICD10: M48.02] Diagnosis: Pain in right ankle and joints of right foot[ICD10: M25.571] Diagnosis: Pain in left ankle and joints of left foot[ICD10: M25.572] Valentina Thompson MD, [facility] CPT-4: 59570 07/31/2016 51575 EST. PATIENT, LEVEL III Diagnosis: Cervicalgia[ICD10: M54.2] Diagnosis: Chronic pain syndrome[ICD10: G89.4] Beatriz Thompson MD, [facility] CPT-4: 67849 07/15/2016 ([id number]) 86895 EST. PATIENT, LEVEL III Diagnosis: Spinal stenosis, cervical region[ICD10: M48.02] Diagnosis: Low back pain[ICD10: M54.5] Valentina Thompson MD, [facility] CPT-4: 43335 07/07/2016 ([id number]) 26852 EST. PATIENT, LEVEL IV Diagnosis: Cervicalgia[ICD10: M54.2] Diagnosis: Essential (primary) hypertension[ICD10: I10] Diagnosis: Mixed hyperlipidemia[ICD10: E78.2] Aicha Thompson MD, [facility] CPT-4: 51091 06/25/2016 ([id number]) 84004 EST. PATIENT, LEVEL III Diagnosis: Cervicalgia[ICD10: M54.2] Valentina Thompson MD, [facility] CPT-4: 52141 05/07/2016 ([id number]) 66300 EST. PATIENT, LEVEL III Diagnosis: Pleurodynia[ICD10: R07.81] Diagnosis: Generalized anxiety disorder[ICD10: F41.1] Diagnosis: Vitamin B12 deficiency anemia due to intrinsic factor deficiency[ ICD10: D51.0] Diagnosis: Hypoxemia[ICD10: R09.02] Valentina Thompson MD, [facility] CPT-4: 24751 04/20/2016 ([id number]) 36248 EST. PATIENT, LEVEL III Diagnosis: Generalized anxiety disorder[ICD10: F41.1] Diagnosis: Radiculopathy, lumbar region[ICD10: M54.16] Valentina Thompson MD, [facility] CPT-4: 66479 03/17/2016 59809 EST. PATIENT, LEVEL IV Diagnosis: Chronic pain syndrome[ICD10: G89.4] Diagnosis: Radiculopathy, lumbar region[ICD10: M54.16] Diagnosis: Generalized anxiety disorder[ICD10: F41.1] Beatriz Thompson MD, [facility] CPT-4: 59084 03/05/2016 ([id number]) 42737 EST. PATIENT, LEVEL III Diagnosis: Radiculopathy, lumbar region[ICD10: M54.16] Diagnosis: Generalized anxiety disorder[ICD10: F41.1] Valentina Thompson MD, [facility] CPT-4: 98341 02/28/2016 ([id number]) 52055 EST. 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 PATIENT, LEVEL III Diagnosis: Headache[ICD10: R51] Diagnosis: Cervicalgia[ICD10: M54.2] Valentina Thompson MD [facility] CPT-4: 52147 08/15/2015 [id number] 59923 EST. PATIENT, LEVEL III Diagnosis: Generalized anxiety disorder[ICD10: F41.1] Diagnosis: Cervicalgia[ICD10: M54.2] Valentina Thompson MD, [facility] CPT-4: 72935 07/25/2015 ([id number]) 73557 EST. PATIENT, LEVEL IV Diagnosis: Pain in right foot[ICD10: M79.671] Diagnosis: Unspecified osteoarthritis, unspecified site[ICD10: M19.90] Diagnosis: Pain in left ankle and joints of left foot[ICD10: M25.572] Diagnosis: Pain in right ankle and joints of right foot[ICD10: M25.571] Valentina Thompson MD, [facility] CPT-4: 03635 06/25/2015 ([id number]) 55764 EST. 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 PATIENT, LEVEL IV Diagnosis: Essential (primary) hypertension[ICD10: I10] Diagnosis: Pain in right foot[ICD10: M79.671] Diagnosis: Pain in left foot[ICD10: M79.672] Diagnosis: Anxiety disorder, unspecified[ICD10: F41.9] Aicha Thompson MD, [facility] CPT-4: 37912 05/08/2015 ([id number]) 48835 EST. PATIENT, LEVEL III Diagnosis: Generalized anxiety disorder[ICD10: F41.1] Diagnosis: Essential (primary) hypertension[ICD10: I10] Diagnosis: Other myositis, multiple sites[ICD10: M60.89] Valentina Thompson MD, [facility] CPT-4: 33880 03/26/2015 51163 EST. PATIENT, LEVEL III Diagnosis: Chronic pain syndrome[ICD10: G89.4] Diagnosis: Unspecified osteoarthritis, unspecified site[ICD10: M19.90] Diagnosis: Pain in right foot[ICD10: M79.671] Diagnosis: Pain in left foot[ICD10: M79.672] Beatriz Thompson MD, [facility] CPT -4: 03746 03/15/2015 ([id number]) 76840 EST. PATIENT, LEVEL III Diagnosis: Abrasion of knee, left[ICD9: 916.0] Valentina Thompson MD, [facility] CPT-4: 19620 01/10/2015 ([id number]) 04343 EST. PATIENT, LEVEL IV Diagnosis: CHRONIC PAIN SYNDROME[ICD9: 338.4] Diagnosis: MYALGIA AND MYOSITIS[ICD9: 729.1] Diagnosis: OSTEOARTH NOS-UNSPEC[ICD9: 715.90] Diagnosis: DEPRESSIVE DISORDER NEC[ICD9: 311] Diagnosis: GENERALIZED ANXIETY DISEASE[ICD9: 300.02] Valentina Thompson MD, [facility] CPT-4: 96097 12/21/2014 ([id number]) 93266 EST. PATIENT, LEVEL IV Diagnosis: GENERALIZED ANXIETY DISEASE[ICD9: 300.02] Diagnosis: DEPRESSIVE DISORDER NEC[ICD9: 311] Diagnosis: ESSENTIAL HYPERTENSION[ICD9: 401.9] [facility] CPT-4: 74222 10/05/2014 ([id number]) 27970 EST. PATIENT, LEVEL III Diagnosis: Knee pain, right[ICD9: 719.46] Diagnosis: CHRONIC PAIN SYNDROME[ICD9: 338.4] Diagnosis: Ankle pain[ICD9: 719.47] Aicha Thompson MD, [facility] CPT-4: 81053 06/14/2014 ([id number]) 50305 EST. PATIENT, LEVEL III Diagnosis: Constipation[ICD9: 564.00] Diagnosis: Hemorrhoids[ICD9: 455.6] Valentina Thompson MD [facility] CPT-4: 58890 01/19/2014 ([id number]) 79599 EST. PATIENT, LEVEL III Diagnosis: Ulcer of knee[ICD9: 707.19] Diagnosis: Hemorrhoids[ICD9: 455.6] Diagnosis: B12 deficiency[ICD9: 266.2] Diagnosis: ALLERGIC RHINITIS[ICD9: 477.9] Valentina Thompson MD [facility] CPT-4: 96052 01/15/2014 ([id number]) 45164 EST. PATIENT, LEVEL IV Diagnosis: EDEMA[ICD9: 782.3] Diagnosis: Open wound of knee[ICD9: 891.0] Diagnosis: CHRONIC PAIN SYNDROME[ICD9: 338.4] Diagnosis: ANEMIA[ICD9: 285.9] Valentina Thompson MD [facility] CPT-4: 30724 10/20/2013 ([id number]) 54504 EST. PATIENT, LEVEL III Diagnosis: ULCER OTH PART LOW LIMB[ICD9: 707.19] Valentina Thompson MD [facility] CPT-4: 56155 07/24/2013 ([id number]) 38679 EST. PATIENT, LEVEL III Diagnosis: ULCER OTH PART LOW LIMB[ICD9: 707.19] Valentina Thompson MD [facility] CPT-4: 70789 06/23/2013 ([id number]) 00504 EST. PATIENT, LEVEL III Diagnosis: ULCER OTH PART LOW LIMB[ICD9: 707.19] Valentina Thompson MD [facility] CPT-4: 14918 06/12/2013 ([id number]) Miscellaneous no charge Diagnosis: ULCER OTH PART LOW LIMB[ICD9: 707.19] Valentina Thompson MD, [facility] CPT-4: 67810 05/29/2013 ([id number]) 84384 EST. PATIENT, LEVEL III Diagnosis: ULCER OTH PART LOW LIMB[ICD9: 707.19] Valentina Thompson MD [facility] CPT-4: 16555 05/23/2013 ([id number]) Miscellaneous no charge Diagnosis: ULCER OTH PART LOW LIMB[ICD9: 707.19] Valentina Thompson MD [facility] CPT-4: 14087 05/19/2013 ([id number]) 98101 EST. PATIENT, LEVEL III Diagnosis: Ulcer of knee[ICD9: 707.19] Valentina Thompson MD [facility] CPT-4: 68070 05/16/2013 ([id number]) 90419 EST. PATIENT, LEVEL III Diagnosis: ALLERGIC RHINITIS[ICD9: 477.9] Aicha Thompson MD [facility] CPT- 4: 20976 03/06/2013 ([id number]) 99166 EST. PATIENT, LEVEL IV Diagnosis: Ankle pain[ICD9: 719.47] Diagnosis: ALLERGIC RHINITIS[ICD9: 477.9] Diagnosis: ESSENTIAL HYPERTENSION[SNOMED: 63910272] Aicha Thompson MD [facility] CPT-4: 43126 12/26/2012 ([id number]) 26391 EST. PATIENT, LEVEL IV Diagnosis: ESSENTIAL HYPERTENSION[SNOMED: 47968630] Diagnosis: JOINT PAIN-L/LEG[ICD9: 719.46] Diagnosis: GENERALIZED ANXIETY DISEASE[ICD9: 300.02] Diagnosis: UNSPECIFIED ASTHMA[ICD9: 493.90] Aicha Thompson MD [facility] CPT-4: 21200 11/21/2012 ([id number]) Miscellaneous no charge Diagnosis: Encounter for tuberculin skin test[ICD9: V74.1] Aicha Thompson MD [facility] CPT-4: 21037 09/28/2012 ([id number]) 92738 EST. PATIENT, LEVEL IV Diagnosis: FEVER NOS[ICD9: 780.60] Diagnosis: PNEUMONIA (CAP)[ICD9: 486] Aicha Thompson MD [facility] CPT- 4: 00102 07/21/2012 ([id number]) 63537 EST. PATIENT, LEVEL IV Diagnosis: JOINT PAIN-ANKLE[ICD9: 719.47] Diagnosis: MUSCLE/LIGAMENT DIS NEC[ICD9: 728.89] Diagnosis: Fibromyalgia muscle pain[ICD9: 729.1] [facility] CPT-4: 04842 07/13/2012 ([id number]) 89172 EST. PATIENT, LEVEL IV Diagnosis: Right foot pain[ICD9: 729.5] Diagnosis: Plantar fasciitis[ICD9: 728.71] Diagnosis: GENERALIZED ANXIETY DISEASE[ICD9: 300.02] Diagnosis: B-COMPLEX DEFIC NEC[ICD9: 266.2] Aicha Thompson MD, [facility] CPT-4: 37707 05/26/2012 ([id number]) 98335 EST. PATIENT, LEVEL IV Diagnosis: Chest wall pain[ICD9: 786.52] Diagnosis: Esophageal reflux[ICD9: 530.81] Diagnosis: ALLERGIC RHINITIS[ICD9: 477.9] Valentina Thompson MD, [facility] CPT-4: 27212 02/15/2012 ([id number]) 46783 EST. PATIENT, LEVEL IV Diagnosis: ALLERGIC RHINITIS[ICD9: 477.9] Diagnosis: HYPERLIPIDEMIA[ICD9: 272.4] Aicha Thompson MD, [facility] CPT- 4: 38158 01/13/2012 ([id number]) 59932 EST. PATIENT, LEVEL IV Diagnosis: JOINT PAIN-L/LEG[ICD9: 719.46] Diagnosis: UNSPECIFIED ASTHMA[ICD9: 493.90] Diagnosis: Costalchondritis[ICD9: 733.6] Aicha Thompson MD, [facility] CPT- 4: 70271 12/21/2011 ([id number]) 74099 EST. PATIENT, LEVEL IV Diagnosis: Hyperlipidemia[ICD9: 272.4] Diagnosis: ALLERGIC RHINITIS[ICD9: 477.9] Diagnosis: B12 deficiency[ICD9: 266.2] Diagnosis: Hypopotassemia[ICD9: 276.8] Valentina Thompson MD, [facility] CPT-4: 93116 10/02/2011 ([id number]) 23045 EST. PATIENT, LEVEL IV Diagnosis: Pain in joint involving forearm[ICD9: 719.43] Diagnosis: Neck pain[ICD9: 723.1] Diagnosis: Fall on same level from slipping, tripping, or stumbling[ICD9: E885.9 ] Diagnosis: B12 deficiency[ICD9: 266.2] [facility] 06109 09/01/2011 ([id number]) 92468 EST. PATIENT, LEVEL IV Diagnosis: Vulvovaginitis[ICD9: 616.10] Diagnosis: OVERWEIGHT[ICD9: 278.02] Diagnosis: MYALGIA AND MYOSITIS[ICD9: 729.1] Aicha Thompson MD [facility] CPT-4: 68795 08/03/2011 ([id number]) 23868 EST. PATIENT, LEVEL IV Diagnosis: MUSCLE/LIGAMENT DIS NEC[ICD9: 728.89] Diagnosis: CHRONIC PAIN SYNDROME[ICD9: 338.4] Diagnosis: Weight gain[ICD9: 783.1] Aicha Thompson MD, [facility] CPT-4: 22317 06/29/2011 97880 EST. PATIENT, LEVEL IV Diagnosis: Wrist pain[ICD9: 719.43] Diagnosis: Knee pain, right[ICD9: 719.46] Diagnosis: Fall on same level from slipping, tripping, or stumbling[ICD9: E885.9 ] Aicha Thompson MD, [facility] CPT-4: 54356 06/22/2011 18766 EST. PATIENT, LEVEL IV Diagnosis: MUSCLE/LIGAMENT DIS NEC[ICD9: 728.89] Diagnosis: JOINT PAIN-L/LEG[ICD9: 719.46] Diagnosis: OSTEOARTH NOS-UNSPEC[ICD9: 715.90] Diagnosis: B12 deficiency[ICD9: 266.2] Aicha Tohmpson MD, [facility] CPT- 4: 99566 06/11/2011 93517 EST. 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 PATIENT, LEVEL IV Diagnosis: Knee pain, bilateral[ICD9: 719.46] Diagnosis: Iliotibial band syndrome[ICD9: 728.89] Diagnosis: Fibromyalgia syndrome[ICD9: 729.1] [facility] CPT-4: 03310 02/12/2011 45423 EST. PATIENT, LEVEL IV Diagnosis: FALL FROM SLIPPING[ICD9: E885.9] Diagnosis: Pain in joint involving lower leg[ICD9: 719.46] Diagnosis: ESOPHAGEAL REFLUX[ICD9: 530.81] Diagnosis: ESSENTIAL HYPERTENSION[SNOMED: 84132459] [facility] CPT-4: 76368 01/29/2011 Plan of Care Planned Activity Notes [...] wear her CPAP the past few days. Zzigqgv-lqenuma-gasgmbwqm patient continue taper of medication as discussed with Dr Thompson -continue counseling 06/16/2018 Appointment: Valentina Smith WPtel: [address] [place], [place] [phone] (30 min) [facility] 06/16/2018 Patient Education: Patient Medication Summary [...] her psychiatrist. 06/01/2018 Appointment: [facility] Thompson [facility]el[phone] (30 min) Complex 06/01/2018 Patient Education: Patient Medication Summary Completed 06/01/2018 Patient Education: Back Pain Completed 06/01/2018 Patient Education: Hypertension Completed 06/01/2018 Patient Education: Obesity Completed 06/01/2018 Appointment: Valent[facility] Smith [facility]el[phone] [place] (15 min) Moderate 04/18/2018 Visit Plan: [...] hydrocodone. 04/05/2018 Appointment: Aicha Thompson WPtel: [phone] [facility] [place] (30 min) Complex 04/05/2018 Patient Education: Patient Medication Summary Completed 04/05/2018 Appointment: Aicha Thompson WPtel: [phone] [facility] [place] (15 min) Moderate 03/17/2018 Visit [...] 2 weeks 03/10/2018 Appointment: Valentina Smith WPtel: [phone] [phone] [place] (15 min) Moderate 03/10/2018 Appointment: Aicha Thompson WPtel: [phone] [facility] [place] (15 min) Moderate 03/10/2018 Patient [...] appt scheduled 01/13/2018 Appointment: Valentina Smith WPtel: [address] [place], [place] [phone] (15 min) Moderate 01/13/2018 Patient Education: Patient [...] current medications. 11/25/2017 Appointment: Valentina Smith WPtel: [facility]1 [phone] (30 min) Complex 11/25/2017 Patient Education: Patient Medication Summary Completed 11/25/2017 Visit Plan: Contact dermatitis-discussed natural and expected course of this diagnosis and to alert me if symptoms do not resolve or if any worse. RX sent to patient's pharmacy and instructed on use. 10/19/2017 Appointment: Valentina Smith WPtel: [facility]6 [phone] (15 min) Moderate 10/19/2017 Patient Education: Patient Medication Summary Completed 10/19/2017 Appointment: Valentina Smith WPtel: [facility]2 [phone] (30 min) Complex 09/27/2017 Visit Plan: Generalized abd moxo-WRN-jsyxjk cipro/flagyl- culture urine-recommend patient follow up with Dr Grace for an appt if abdominal pain does not improve Low potassium-check labs 09/17/2017 Visit Plan: Generalized abd kjqz-WEA-kqueqo cipro/flagyl- culture urine-recommend patient follow up with Dr Grace for an appt if abdominal pain does not improve Low potassium-check labs 09/17/2017 Appointment: Valentina Smith WPtel: [facility]5 [phone] (30 min) Complex 09/17/2017 Patient Education: Patient [...] of over-medication. 09/06/2017 Appointment: Aicha Thompson WPtel: [facility]5 [facility] (30 min) Complex 09/06/2017 Patient Education: Patient Medication Summary Completed 09/06/2017 Appointment: Aicha Thompson WPtel: [address] [place], [place] [phone] (30 min) Complex 09/02/2017 Appointment: Aicha Thompson WPtel: [address] [place], [place] [phone] (30 min) Complex 08/23/2017 Visit Plan: Headaches-neck pain-patient is to let us know which neurologist she wants to see B12 def-injection today in the office Hyperlipidemia-check labs Vitamin D def-check level 08/19/2017 Appointment: Valentina Smith WPtel: [facility]5 [phone] (30 min) Complex 08/19/2017 Patient Education: Patient [...] the list of the neurologists that her residential gas heat technician has recommended and we would consider a [...] the list of the neurologists that her residential gas heat technician has recommended and we would consider a [...] the psychiatrist. 07/06/2017 Appointment: Aicha Thompson WPtel: [facility] (30 min) Complex 07/06/2017 Patient Education: Patient Medication Summary Completed 07/06/2017 Appointment: Aicha Thompson WPtel: [facility] (30 min) Complex 07/05/2017 Appointment: Valentina Smith WPtel: [phone] [place] (30 min) Complex 05/17/2017 Appointment: Beatriz Mojica WPtel: [facility] [place] (30 min) Complex 05/14/2017 Visit Plan: Neck qers-arsotpt-daluuvg to continue f/u with [facility]-her symptoms have [...] of plan. 04/27/2017 Appointment: Valentina Smith WPtel: [facility]3 [phone] (30 min) Complex 04/27/2017 Patient Education: Patient Medication Summary Completed 04/27/2017 Patient Education: Obesity Completed 04/27/2017 Visit Plan: Hemorrhoidal skin tag-no acute inflammation today -may use hemorrhoid cream as directed as needed-call with any concerns, bleeding, etc. 04/06/2017 Appointment: Valentina Smith WPtel: [facility]3 [phone] (30 min) Complex 04/06/2017 Patient Education: Patient Medication Summary Completed 04/06/2017 Patient Education: Obesity Completed 04/06/2017 Visit Plan: Bilateral foot and ankle pain-now has AFOs-we have made her several appt with podiatrists which she has not kept-recommend patient call Dr Saunders and reschedule appt with him. Neck pain-[facility] appt next week-KEEP APPOINTMENT! 02/25/2017 Appointment: Valentina Smith WPtel: [facility]1 [phone] (30 min) Complex 02/25/2017 Patient Education: [...] podiatry for evaluation-wants to see someone in [place] 11/17/2016 Appointment: Valentina Smith WPtel: [facility]7 [phone] [place] (30 min) Complex 11/17/2016 Patient Education: Patient Medication Summary Completed 11/17/2016 Appointment: Valentina Smith WPtel: [facility]5 [phone] (30 min) Complex 11/16/2016 Visit Plan: [place] referral - pt to indicate when and who she would like to go to - for neck and back AFO for both legs - [facility] in [place], [place]- fax #[phone] pt has been seen by instrument repair specialist - need brace because of bilateral [...] over- medication. 10/12/2016 Appointment: Aicha Thompson WPtel: [facility] (30 min) [...] for re-evaluation 08/18/2016 Appointment: Valentina Smith WPtel: [facility]5 [phone] (30 min) Complex 08/18/2016 Patient Education: Patient Medication Summary Completed 08/18/2016 Patient Education: Obesity Completed 08/18/2016 Care Plan: X-RAY EXAM NECK SPINE 2-3 VW LOINC : 36724-3 Pending 08/15/2016 Visit Plan: Vaginal yeast infection-RX for diflucan B12 deficiency-check labs 08/07/2016 Appointment: Valentina Smith WPtel: 101 [phone] (30 min) Complex 08/07/2016 Patient Education: Patient Medication Summary Completed 08/07/2016 Visit Plan: Cervical stenosis-saw Dr Ramey-Dr Ramey is going to send her to for further evaluation Bilateral ankle pain-xray ankles 07/31/2016 Appointment: Valentina Smith WPtel: [phone] [phone] [place] (30 min) Complex 07/31/2016 Patient Education: Patient Medication Summary Completed 07/31/2016 Patient Education: Obesity Completed 07/31/2016 Visit Plan: Neck pain after fall - Will check x-ray, Pt is to follow up with Dr. Perez. Pt is to notify clinic if symptoms do not improve , if they worsen, or with any questions or concerns. 07/15/2016 Appointment: Beatriz Mojica WPtel: [phone] [facility] (30 min) Complex 07/15/2016 Patient Education: Patient [...] Injection 07/03/2016 Appointment: Valentina Smith WPtel: [phone] [phone] [place] (30 min) Complex 07/03/2016 Patient Education: [...] despite PT. 05/07/2016 Appointment: Valentina Smith WPtel: [phone] (30 min) [facility] 05/07/2016 Patient Education: Patient Medication Summary Completed 05/07/2016 Patient Education: Obesity Completed 05/07/2016 Care Plan: MRI NECK SPINE W/O DYE LOINC : 00388-6 Pending 05/07/2016 Visit Plan: Chronic Depression and [...] monitor symptoms 04/20/2016 Appointment: Valentina Smith WPtel: [address] [place], [place] [phone] (30 min) Complex 04/20/2016 Patient Education: Patient Medication Summary Completed 04/20/2016 Appointment: Valentina Smith WPtel: [address] [place], [place] [phone] (30 min) Complex 03/19/2016 Visit Plan: Chronic [...] Dr Ibarra 03/17/2016 Appointment: Valentina Smith WPtel: [address] [place], [place] [phone] (30 min) Complex 03/17/2016 Patient Education: Patient [...] current medications. 02/28/2016 Appointment: Valentina Smith WPtel: [address] [place], [place] [phone] (15 min) Moderate 02/28/2016 Patient Education: Patient Medication Summary Completed 02/28/2016 Appointment: Valentina Smith WPtel: [address] [place], [place] [phone] (30 min) Complex 02/27/2016 Visit Plan: Hypertension [...] d level 02/13/2016 Appointment: Valentina Smith WPtel: [address] [place], [place] [phone] (30 min) Complex 02/13/2016 Patient Education: Patient Medication Summary Completed 02/13/2016 Patient Education: Obesity Completed 02/13/2016 Care Plan: Tsh Pending 02/13/2016 Care Plan: Lipid Pending 02/13/2016 Care Plan: Comp Metabolic patient to come fasting Pending 02/13/2016 Care Plan: Vitamin D 25 Oh Cancelled 02/13/2016 Care Plan: Cbc With Differential Pending 02/13/2016 Patient Education: Patient Medication Summary Completed 02/03/2016 Care Plan: SCREENINGMAMMOGRAPHYDIGITAL [facility] : 71857-7 Pending 02/03/2016 Appointment: Injection 01/15/2016 Appointment: Lab [...] Plan: X-RAY EXAM NECK SPINE 2-3 VW [facility] : 31812-9 Ordered 08/15/2015 Visit Plan: Anxiety-fairly well controlled-does [...] feet and ankle instability/pain. Refer patient to [facility] for aqua therapy. Patient verbalized understanding of [...] Completed 10/05/2014 Care Plan: COMPLETE [facility] : 34301-2 Ordered 10/05/2014 Visit Plan: Chronic Pain Syndrome - pt has chronic pain - has been maintained on current medications, has not sought out other medications , only uses PRN pain medications as directed, and understands the consequences of over-medication. Right hip/knee/ankle pain-improving since last fall- continue physical therapy exercises-continue supportive shoes and use walker for stability 06/14/2014 Appointment: Valentina Smith WPtel: [address] [place], [place] [phone] Follow up 06/14/2014 Patient Education: Patient Medication [...] the instructions given to her from her oil winterizer and she is to call him if her constipation is uncontrolled. Hemorrhoids-use suppositories as directed. 01/19/2014 Patient Education: Patient Medication Summary Completed 01/19/2014 Visit Plan: Ulcer of kztt-umxzjou-wwnds instructions provided today and instructed patient to return as directed-keep wound clean and dry. Hemorrhoids-refill anusol suppositories and use as directed B12 deficiency-b12 injection today in the office Ksfrwhxwa-jlxlypmtmhno-wjqvxll injection today in the office-continue oral medications [...] Anemia-check labs 10/20/2013 Appointment: Valentina Smith WPtel: [facility]5 [phone] [place] Other 10/20/2013 Patient Education: Patient Medication Summary Completed 10/20/2013 Appointment: Valentina Smith WPtel: [facility]5 [phone] [place] Injection 08/21/2013 Appointment: Aicha Thompson WPtel: [address] [place], [place] [phone] [place] Follow up 07/31/2013 Visit Plan: Ulcer of knee healing-silver nitrate to granulation tissue-instructed patient to monitor and call if it does not completely heal for appointment-instructed on wound care-patient and mother verbalized understanding of plan. 07/24/2013 Patient Education: Patient Medication Summary Completed 07/24/2013 Patient Education: Patient Medication Summary Completed 07/24/2013 Appointment: Valentina Smith WPtel: [address] [place], [place] [phone] [place] [address] Follow up 07/03/2013 Visit Plan: Ulcer-left knee-fibrous tissue removed from wound bed to reveal pink granulation tissue-wound cleansed and dressing applied. Instructed patient on wound care. Return in 10 days for follow up. 06/23/2013 Appointment: Valentina Smith WPtel: [address] [place], [place] [phone] [place] [address] Follow up 06/23/2013 Patient Education: Patient Medication Summary Completed 06/23/2013 Appointment: Valentina Smith WPtel: [address] [place], [place] [phone] [place] [address] Follow up 06/22/2013 Appointment: Aicha Thompson WPtel: [address] [place], [place] [phone] Follow up 06/22/2013 Visit Plan: Ulcer-left knee-fibrous tissue removed from wound bed to reveal pink granulation tissue-wound cleansed and dressing applied. Instructed patient on wound care. Return in 10 days for follow up. 06/12/2013 Appointment: Valentina Smith WPtel: [address] [place], [place] [phone] [place] [address] Follow up 06/12/2013 Patient Education: Patient Medication Summary Completed 06/12/2013 Appointment: Aicha Thompson WPtel: [address] [place], [place] [phone] Follow up 06/08/2013 Visit Plan: Ulcer left hkkv-qfiyjpdx-g/u in 10 days 05/29/2013 Appointment: Valentina Smith WPtel: [address] [place], [place] [phone] [place] [address] Follow up 05/29/2013 Patient Education: Patient Medication Summary Completed 05/29/2013 Visit Plan: Ulcer of knee-sharp debridement today in the office--wound care instructions provided for patient-patient and mother verbalized understanding of plan. Follow up next week. 05/23/2013 Appointment: Valentina Smith WPtel: [address] [place], [place] [phone] [place] [address] Follow up 05/23/2013 Patient Education: Patient Medication Summary Completed 05/23/2013 Appointment: Valentina Smith WPtel: [address] [place], [place] [phone] Follow up 05/22/2013 Visit Plan: Ulcer of knee-wound care instructions provided for patient-patient and mother verbalized understanding of plan. 05/19/2013 Appointment: Valentina Smith WPtel: [address] [place] [phone] [place] [address] Other 05/19/2013 Patient Education: Patient Medication Summary Completed 05/19/2013 Visit Plan: Ulcer of knee-fibrous tissue debrided today in the office--wound care instructions provided for patient-return in 1 week for follow up. 05/16/2013 Appointment: Valentina Smith WPtel: [address] [place] [phone] [place] [address] Hospital follow up 05/16/2013 Patient Education: Patient Medication Summary Completed 05/16/2013 Appointment: Aicha Thompson WPtel: [address] [place], [place] [phone] Injection 05/10/2013 Patient Education: Patient Medication Summary [...] the office. 03/06/2013 Appointment: Valentina Smith WPtel: [address] [place], [place] [phone] Other 03/06/2013 Patient Education: Patient Medication Summary Completed 03/06/2013 Appointment: Aicha Thompson WPtel: [address] [place], [place] [phone] Nurse Visit 02/20/2013 Patient Education: Patient Medication [...] acute changes 11/21/2012 Appointment: Aicha Thompson WPtel: [facility]5 [facility] [place] Follow up 11/21/2012 Patient Education: Patient Medication Summary Completed 11/21/2012 Patient Education: Hypertension Completed 11/21/2012 Appointment: Aicha Thompson WPtel: [facility] [place] Injection 11/16/2012 Patient Education: Patient Medication Summary Completed 11/16/2012 Appointment: Aicha Thompson WPtel: [facility] [place] Injection 09/28/2012 Patient Education: Patient Medication Summary Completed 09/28/2012 Appointment: Aicha Thompson WPtel: [facility] [place] Injection 09/26/2012 Patient Education: Patient Medication Summary Completed 09/26/2012 Appointment: Aicha Thompson WPtel: [facility] [place] Injection 09/12/2012 Patient Education: Patient Medication Summary Completed 09/12/2012 Appointment: Aicha Thompson WPtel: [facility] [place] Injection [...] sparingly. 07/13/2012 Appointment: Aicha Thompson WPtel: [address] [place], [place] [phone] Other 07/13/2012 Patient Education: Patient Medication Summary [...] in medications 05/26/2012 Appointment: Valentina Smith WPtel: [phone] Other 05/26/2012 Patient Education: Patient Medication Summary Completed 05/26/2012 Appointment: Valentina Smith WPtel: [phone] [phone] [place] Sick 03/15/2012 Appointment: Aicha Thompson WPtel: [facility] [place] Injection [...] the medication. 02/15/2012 Appointment: Valentina Smith WPtel: [facility]5 [facility] [place] [address] Other 02/15/2012 Patient Education: Patient Medication Summary [...] to medications 01/13/2012 Appointment: Valentina Smith WPtel: [facility]5 [phone] Other 01/13/2012 Patient Education: Patient Medication Summary Completed 01/13/2012 Appointment: Valentina Smith WPtel: [facility]5 [phone] Other 01/06/2012 Visit Plan: Asthma - chest xray and symbicort sample today. Patellofemoral syndrome- recommended physical therapy. Costochondritis - recommended pt to use antiinflammatories as able for treatment of rib/sternum irritation and for pt to call if her symptoms do not improve. 12/21/2011 Appointment: Aicha Thompson WPtel: [phone] [facility] Other 12/21/2011 Patient Education: Patient Medication [...] the office. 10/02/2011 Appointment: Valentina Smith WPtel: [facility]2 [phone] Other 10/02/2011 Patient Education: Patient Medication Summary Completed 10/02/2011 Visit Plan: Pain in joints-arms, elbows-recent fall- discussed natural and expected course of this diagnosis and to alert me if symptoms do not follow expected course, or if any worse. Patient verbalized understanding. Neck mrpv-sbjrjdg-zcwzzisqo physical therapy-patient declined at this time-going to see the kiln stoker this afternoon. B12 deficiency-B12 injection today in the office. 09/01/2011 Appointment: Valentina Smith WPtel: 101[address] [phone] Other 09/01/2011 Patient Education: Patient Medication Summary [...] sparingly. 08/03/2011 Appointment: Aicha Thompson WPtel: [phone] [facility] Follow up 08/03/2011 Patient Education: Patient [...] Completed 06/29/2011 Appointment: Aicha Thompson WPtel: [phone] [facility] Other 06/24/2011 Visit Plan: Right knee pain, bilateral wrist pain-recent fall-discussed natural and expected course of this diagnosis and to alert me if symptoms do not follow expected course, or if any worse. Patient verbalized understanding. Recommend follow up with Ortho physician if pain persists. 06/22/2011 Appointment: Valentina Smith WPtel: [phone] [phone] Other 06/22/2011 Patient Education: Patient Medication Summary Completed 06/22/2011 Visit Plan: Knee and Ankle pain and instability- recommend re-evaluation by an renal medicine specialist at [facility] the [address] [place] [address]. Pt has been recommended to go back to Dr. Corbin at [facility] the [address] [place] [address] as my office did not get a [...] of fibromyalgia. 06/11/2011 Appointment: Aicha Thompson WPtel: [facility]5 [facility] [place] Injection 06/11/2011 Appointment: Aicha Thompson WPtel: [facility] Other 06/11/2011 Patient Education: Patient Medication Summary Completed 06/11/2011 Visit Plan: Knee and Ankle pain and instability- recommend evaluation by an renal medicine specialist at [facility] the [facility]. The pt has been previously [...] physical appearance. 03/11/2011 Appointment: Aicha Thompson WPtel: [facility]5 [facility] Other 03/11/2011 Patient Education: Patient Medication Summary Completed 03/11/2011 Patient Education: .Amazing charts Diabetic meal planning guide Completed 03/11 Appointment: Aicha Thompson WPtel: 101[address] [facility] Injection 02/23/2011 Patient Education: Patient Medication Summary Completed 02/23/2011 Visit Plan: iliotibial band syndrome - continue with current treatment per kiln stoker. I have recommend use of biofreeze to the right outer leg. I have given pt stretching exercises for home. Fibromyalgia - chronic - continue with exercise, heat, and prn pain medication. Knee pain - apparently resolved prior to her appointment today. No change in present management, call if pain returns. 02/12/2011 Appointment: Aicha Thompson WPtel: [phone] [id number] Other 02/12/2011 Patient Education: Patient Medication [...] appt with Dr Ibarra . Ulcer left ufjo-axqhmzuv-j/u in 10 days . Hemorrhoidal skin tag-no acute inflammation today -may use hemorrhoid cream as directed as needed-call with any concerns, bleeding, etc. sleep study -[facility] . Headaches-patient is not wearing her CPAP and i suspect this may be contributing to her headaches-will contact [facility] for a new sleep study Neck pain -spinal stenosis -[facility] has attempted to contact patient with no response from Mary-I have instructed her to call them and get appt scheduled Dr Saunders -[facility] . Bilateral foot [...] legs - [facility] [place]- fax # [phone] pt has been seen by instrument repair specialist - need brace because of bilateral [...] the instructions given to her from her oil winterizer and she is to call him if her constipation is uncontrolled. Hemorrhoids-use suppositories as directed. . Anxiety-fairly well controlled-does have added stress with family-no change in medications-call if symptoms worsen Neck pain-recommend rest, ice and anti inflammatories as directed-call if symptoms do not resolve or if any worse. Patient verbalized understanding of plan. . iliotibial band syndrome - continue with current treatment per kiln stoker. I have recommend use of biofreeze to [...] and instability- recommend re- evaluation by an renal medicine specialist at [facility] of the [address] [place] [address]. Pt has been recommended to go back to Dr. Corbin at [facility] of the [address] [place] [address] as my office did not get a [...] savella for treatment of fibromyalgia. REFER TO [facility] FOR PODIATRY EVALUATION DX BILATERAL FOOT AND ANKLE PAIN . Bilateral foot pain-foot drop-patient getting AFOs-refer to podiatry for evaluation-wants to see someone in [place] [facility] BRAIN Call [facility] [...] the list of the neurologists that her residential gas heat technician has recommended and we would consider a [...] the list of the neurologists that her residential gas heat technician has recommended and we would consider a [...] if any worse. Patient verbalized understanding. Neck gvnj-yhocgii-mtdsssmxs physical therapy-patient declined at this time- going to see the kiln stoker this afternoon. B12 deficiency-B12 injection today in [...] today in the office. . Ulcer of zeij-vzeohck-acpav instructions provided today and instructed patient to return as directed-keep wound clean and dry. Hemorrhoids-refill anusol suppositories and use as directed B12 deficiency-b12 injection today in the office Ftnuhrizp-qvqwfxxhrfrr-dtzmqpo injection today in the office-continue oral medications [...] wear her CPAP the past few days. Parlbbk-tphmpky-qmmgrvcod patient continue taper of medication as discussed with Dr Thompson -continue counseling . Generalized abd rdlg-EBJ-sywccd cipro/flagyl-culture urine-recommend patient follow up with Dr Grace for an appt if abdominal pain does not improve Low potassium-check labs . Generalized abd vprn-MTN-xgnooh cipro/flagyl-culture urine-recommend patient follow up with Dr [...] for acute changes B12 injection . Neck zwyh-ozlzeaq-tacncjd to continue f/u with [facility]-her symptoms have [...] regimen-no changes in medications Dr. Ramey - [facility] . Hypertension - well controlled - [...] pain and instability- recommend evaluation by an renal medicine specialist at [facility]. [...] (may be called three old goats) at [employer] and home. . Hypertension - well controlled [...]
[2018-08-03 06:44] LABS: ALANINE AMINOTRANSFERASE 49 U/L (0-55); ALBUMIN 4.6 GM/DL (3.2-4.5); ALKALINE PHOSPHATASE 68 U/L (40-136); AMYLASE 103 U/L (25-125); BILIRUBIN,TOTAL 0.5 MG/DL (0.1-1.0); BUN/CREATININE RATIO 23; CALCIUM 9.6 MG/DL (8.5-10.1); CARBON DIOXIDE 21 MMOL/L (21-32); CHLORIDE 104 MMOL/L (98-107); GFR ESTIMATED > 60; GLUCOSE 115 MG/DL (70-105); LIPASE 25 U/L (8-78); POTASSIUM 3.7 MMOL/L (3.6-5.0); SODIUM 141 MMOL/L (135-145); TOTAL PROTEIN 7.2 GM/DL (6.4-8.2)
--- NOTE | 2018-08-03 06:45 | Diagnostic Imaging Report ---
INDICATION: Chest and abdominal pain. COMPARISON: CT chest, abdomen, and pelvis performed earlier same day. FINDINGS: Lungs are clear. No radiopaque foreign body. Normal cardiomediastinal silhouette. No free intraperitoneal air. Nonobstructive bowel gas pattern. No radiopaque foreign body within the abdomen or pelvis. Moderate volume of colonic stool seen. Normal regional skeleton. IMPRESSION: 1. Please note that the CT chest, abdomen, and pelvis patient had earlier same day is far more sensitive for pathology than this acute abdominal series. 2. No radiopaque foreign body. Dictated by: Dictated on workstation # [id number]
--- NOTE | 2018-08-03 06:47 | ED General ---
General Chief Complaint: General Problems/Pain Stated Complaint: POSS PYCH ISSUES Allergies and Home Medications Allergies Coded Allergies: Sulfa (Sulfonamide Antibiotics) (Verified Allergy, Unknown, 08/29/13) latex (Verified Allergy, Unknown, 08/29/13) Home Medications Albuterol Sulfate 1 Puff Puff, 1 PUFF IH BID Prescribed by: EULOGIO ARNDT on 08/29/131841 Atorvastatin 20 Mg Tablet, 1 EACH PO DAILY Prescribed by: EULOGIO ARNDT on 08/29/131841 Budesonide/Formoterol Fumarate 10.2 Gm Hfa.aer.ad, 1 PUFF IH BID Prescribed by: EULOGIO ARNDT on 08/29/131841 Ciprofloxacin HCl 500 Mg Tablet, 500 MG PO BID Prescribed by: CALLUM DUBON on 09/09/17538 Cyclobenzaprine Hcl 10 Mg Tablet, 1 EACH PO TID Prescribed by: EULOGIO ARNDT on 08/29/131841 Diazepam 10 Mg Tablet, 10 MG PO QID, (Reported) Fish Oil/Fat No.8/Hrb Comb.137 1,200 Mg Capsule, 1,200 MG PO QID Prescribed by: EUOLGIO ARNDT on 08/29/131841 Hydrocodone Bit/Acetaminophen 1 Each Tablet, 1 EACH PO QID Prescribed by: EULOGIO ARNDT on 08/29/131841 Metoprolol Tartrate 25 Mg Tablet, 0.5 TAB PO BID TAKES 1/2 OF 25 MG TAB BID (12.5 MG BID) Prescribed by: EULOGIO ARNDT on 08/29/131841 Metronidazole 500 Mg Tablet, 500 MG PO TID Prescribed by: CALLUM DUBON on 09/09/17538 Milnacipran Hcl 100 Mg Tablet, 100 MG PO DAILY Prescribed by: EULOGIO ARNDT on 08/29/131841 Ondansetron 4 Mg Tab.rapdis, 4 MG SL Q4H PRN for NAUSEA/VOMITING-1ST LINE Prescribed by: CALLUM DUBON on 09/09/17538 Pantoprazole Sodium 40 Mg Tablet.dr, 40 MG PO DAILY Prescribed by: EULOGIO ARNDT on 08/29/131841 Prednisone 20 Mg Tab, 20 MG PO DAILY Prescribed by: CALLUM DUBON on 09/09/17538 Pyridoxine/Melatonin 1 Tab Tablet, 2 TAB PO HS Prescribed by: EULOGIO ARNDT on 08/29/131841 Quetiapine Fumarate 100 Mg Tablet, 2 TAB PO HS Prescribed by: EULOGIO ARNDT on 08/29/131841 Trazodone Hcl 100 Mg Tab, 2 TAB PO HS Prescribed by: EULOGIO ARNDT on 08/29/131841 Valerian Root 1,000 Gm Powder, 1,000 GM MC DAILY Prescribed by: EULOGIO ARNDT on 08/29/131841 Venlafaxine Hcl 150 Mg Cap.sr.24h, 1 EACH PO TID Prescribed by: EULOGIO ARNDT on 08/29/131841 [Remicade] , IV Q 8 WKS Prescribed by: EULOGIO ARNDT on 08/29/131841 Past Tzxvdwt-Idntvv-Ddfmgl Hx Patient Social History 2nd Hand Smoke Exposure: No Recent Foreign Travel: No Contact w/Someone Who Travel: No Recent Hopitalizations: No Immunizations Up To Date Tetanus Booster (TDap): Unknown Date of Pneumonia Vaccine: Mar 07, 2013 Date of Influenza Vaccine: Mar 07, 2013 Seasonal Allergies Seasonal Allergies: Yes Past Medical History Surgeries: Yes (COLONOSCOPY) Respiratory: Yes Asthma, Sleep Apnea, COPD Cardiac: Yes Hypertension Neurological: Yes Headaches /Migraines 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 0.0oz. 91.587806hj; 31.0 BMI Method:Stated Progress/Results/Core Measures Suspected Sepsis SIRS Temperature: Pulse: Respiratory Rate: Laboratory Tests 08/03/18 05:53: White Blood Count 9.1 Blood Pressure / Mean: Laboratory Tests 08/03/18 05:53: Creatinine 0.80, Platelet Count 248, Total Bilirubin 0.5 Results/Orders Lab Results Laboratory Tests Test 08/03/18 05:53 Range/Units White Blood Count 9.1 4.3-11.0 10^3/uL Red Blood Count 4.12 L 4.35-5.85 10^6/uL Hemoglobin 12.8 11.5-16.0 G/DL Hematocrit 41 35-52 % Mean Corpuscular Volume 98 80-99 FL Mean Corpuscular Hemoglobin 31 25-34 PG Mean Corpuscular Hemoglobin Concent 32 32-36 G/DL Red Cell Distribution Width 13.6 10.0-14.5 % Platelet Count 248 130-400 10^3/uL Mean Platelet Volume 9.1 7.4-10.4 FL Neutrophils (%) (Auto) 53 42-75 % Lymphocytes (%) (Auto) 36 12-44 % Monocytes (%) (Auto) 10 0-12 % Eosinophils (%) (Auto) 2 0-10 % Basophils (%) (Auto) 0 0-10 % Neutrophils # (Auto) 4.8 1.8-7.8 X 10^3 Lymphocytes # (Auto) 3.2 1.0-4.0 X 10^3 Monocytes # (Auto) 0.9 0.0-1.0 X 10^3 Eosinophils # (Auto) 0.2 0.0-0.3 10^3/uL Basophils # (Auto) 0.0 0.0-0.1 10^3/uL Sodium Level 141 135-145 MMOL/L Potassium Level 3.7 3.6-5.0 MMOL/L Chloride Level 104 98-107 MMOL/L Carbon Dioxide Level 21 21-32 MMOL/L Anion Gap 16 H 5-14 MMOL/L Blood Urea Nitrogen 18 7-18 MG/DL Creatinine 0.80 0.60-1.30 MG/DL Estimat Glomerular Filtration Rate > 60 BUN/Creatinine Ratio 23 Glucose Level 115 H 70-105 MG/DL Calcium Level 9.6 8.5-10.1 MG/DL Corrected Calcium 8.5-10.1 MG/DL Total Bilirubin 0.5 0.1-1.0 MG/DL Aspartate Amino Transf (AST/SGOT) 35 H 5-34 U/L Alanine Aminotransferase (ALT/SGPT) 49 0-55 U/L Alkaline Phosphatase 68 40-136 U/L Total Protein 7.2 6.4-8.2 GM/DL Albumin 4.6 H 3.2-4.5 GM/DL Amylase Level 103 25-125 U/L Lipase 25 8-78 U/L My Orders Orders - CORKY,HASMUKH K DO Saline Lock/Iv-Start (2/27/19 05:36) Amylase (08/03/18 05:36) Cbc With Automated Diff (08/03/18 05:36) Comprehensive Metabolic Panel (08/03/18 05:36) Lipase (08/03/18 05:36) Ua Culture If Indicated (08/03/18 05:36) Acute Abd Series (08/03/18 05:36) Ondansetron Injection (Zofran Injectio (08/03/18 05:45) Pantoprazole Injection (Protonix Injecti (08/03/18 05:36) Ct Chest/Abdomen/Pelvis Wo (08/03/18 05:36) Medications Given in ED Current Medications Medications Dose Ordered Sig/Senia Route Start Time Stop Time Status Last Admin Dose Admin Ondansetron HCl 4 mg ONCE ONCE IVP 08/03/18 05:45 08/03/18 05:46 DC 08/03/18 06:00 4 MG Vital Signs/I&O Capillary Refill : Diagnostic Imaging Comments ACUTE ABDOMEN XRAYS--NO ACUTE PROCESS, PER RADIOLOGIST REPORT @ 0647 CT ABDOMEN/PELVIS--ESSENTIALLY NORMAL. NO FOREIGN BODY OR FLUID IN ESOPHAGUS. PER RADIOLOGIST REPORT @ 0650 Reviewed: Reviewed by Me Departure Impression Primary Impression: GERD SYMPTOMS Disposition: HOME, SELF-CARE Condition: Stable Departure-Patient Inst. Referrals: JOSE RUBALCAVA MD (PCP/Family) Primary Care Physician Patient Instructions: Acid Reflux (Gastroesophageal Reflux Disease) in Adults Add. Discharge Instructions: CONTINUE YOUR CURRENT MEDICATIONS PRESCRIBED, INCLUDING PANTOPRAZOLE SLEEP WITH HEAD AND UPPER HALF OF BODY ELEVATED 30-45 DEGREES FOLLOW UP WITH DR. RUBALCAVA THIS WEEK FOR FURTHER CARE All discharge instructions reviewed with patient and/or family. Voiced understanding. Scripts Sucralfate (Carafate) 1 Gm/10 Ml Oral.susp 1 GM PO QID AC AND HS, #400 ML Prov: HASMUKH FRIED DO 08/03/18 HASMUKH FRIED DO Aug 03, 2018 06:47
--- NOTE | 2018-08-03 06:47 | Diagnostic Imaging Report ---
PROCEDURE: CT chest, abdomen, and pelvis without contrast. TECHNIQUE: Multiple contiguous axial images were obtained through the chest, abdomen, and pelvis without the use of intravenous contrast. INDICATION: Chest and abdominal pain. COMPARISON: CT abdomen and pelvis of 09/29/2017. FINDINGS: CT CHEST: No endoluminal nodule within the trachea. No pulmonary mass or concerning nodule. Patchy groundglass attenuation in the bilateral dependent aspects of the lungs favors dependent atelectasis. No pleural effusion or pneumothorax. Visualized thyroid is normal. No supraclavicular or axillary lymphadenopathy. No mediastinal, hilar or juxtaphrenic lymphadenopathy. Heart is normal in size with trace pericardial fluid is likely physiologic. No radiopaque foreign body is present along the esophagus. No pneumomediastinum to suggest esophageal perforation. No worrisome focal osseous lesion. CT ABDOMEN AND PELVIS: No free intraperitoneal air or fluid. Assessment of abdominal viscera is mildly limited without IV contrast. Allowing for this, the unenhanced liver, gallbladder, spleen, pancreas and adrenals are grossly normal. No renal or ureteral stones. No obstructive uropathy. Uterus is surgically absent. No adnexal mass. No bowel obstruction. Stomach has fluid within it but no radiopaque foreign bodies. No radiopaque foreign bodies along the GI tract. Normal appendix. Normal caliber thoracic aorta. No abdominal or pelvic lymphadenopathy. No concerning osseous abnormality. IMPRESSION: CHEST: No acute pathology and no radiopaque foreign body. ABDOMEN AND PELVIS: No acute pathology and no radiopaque foreign body. Dictated by: Dictated on workstation # [id number]
[2018-08-03] MEDS ORDERED: SUCR1ORA5 PO (06:53)
--- OUTSIDE RECORDS SUMMARY | 2018-08-03 06:55 | XMS REPORT | CCD ---
Author Author [facility] Thompson Organization [facility] Address [address] [place] [address] Phone Care Team Providers Care [employer] Developer Name Role Phone PP Unavailable CCM Unavailable Summary Purpose Interface Exchange Insurance Providers Payer name Policy type / Coverage type Covered constitution party ID Effective Begin Date Effective End Date WPS Medicare Part B Medicare Part B [id number] 2013 Unknown [facility] Medicare Part B [id number] 2013 Unknown Family history Grandmother Diagnosis Age [...] status Unknown 01/29/[address]: 646427246 Never smoker 01/29/[address]: 238567 Currently drinks alcohol mixed drink before bed [...] sleep apnea Unknown Active 05/14/2011 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 03/11/2011 Unknown Overweight (BMI [...] Active sleep apnea Unknown 05/14/2011 Active 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 03/11/2011 Active Overweight (BMI 25.0-29.9) [...] Fill Instructions diazepam 5 mg tablet RxNorm: 159686 2 Tablet(s) (10 mg) PO QAM and 1 Tablet (5 mg ) PO QHS 06/15/2018 07/05/2018 Active Claritin-D 12 Hour 5 mg-120 mg tablet,extended release RxNorm: 9604190 Tablet(s) as needed TAKE 1 TABLET BY MOUTH TWICE DAILY NEEDED 201808/13/2018 Active Lipitor 20 mg tablet RxNorm: 961740 1 TABLET(S) PO DAILY 201705/12/2019 Active TAKE ONE TABLET BY MOUTH EVERY NIGHT AT BEDTIME tramadol 50 mg tablet RxNorm: 766447 1-2 Tablet(s) PO TID as needed 04/20/2018 06/18/2018 Active Valium 10 mg tablet RxNorm: 232326 1 Tablet(s) daily as needed 04/18/2018 05/31/2018 Inactive hydrocodone 10 mg-acetaminophen 325 mg tablet RxNorm: 096252 1 tab bid x 1 week then daily x 2 weeks then stop Tablet(s) PO Q6 for pain 04/1805/10/2018 Inactive diazepam 10 mg tablet RxNorm: 556700 1 Tablet(s) BID 04/18/2018 06/14/2018 Inactive Claritin-D 12 Hour 5 mg-120 mg tablet,extended release RxNorm: 0902196 Tablet(s) as needed TAKE 1 TABLET BY MOUTH TWICE DAILY NEEDED 201706/11/2018 Inactive tramadol 50 mg tablet RxNorm: 781159 1-2 Tablet(s) PO TID as needed 03/10/2018 04/07/2018 Inactive cyanocobalamin (vit B-12) 1,000 mcg/mL injection solution RxNorm: 415931 1 Milliliter(s) Inj 03/10/2018 03/10/2018 Inactive Seroquel 100 mg tablet RxNorm: 712624 1 TABLET(S) PO BID 201703/01/2019 Active TAKE 1 TABLET BY MOUTH TWICE DAILY hydrocodone 10 mg-acetaminophen 325 mg tablet RxNorm: 671018 1-2 Tablet(s) PO Q6 as needed for pain 02/21/2018 03/09/2018 Inactive Ventolin HFA 90 mcg/actuation aerosol inhaler RxNorm: 049219 1 OR 2 PUFF(S) INH Q6 PRN NEEDED 01/13/2018 07/11/2018 Active trazodone 100 mg tablet RxNorm: 603106 TABLET(S) TAKE 2 TABLETS BY MOUTH EVERY NIGHT AT BEDTIME 12/07/2017 09/02/2018 Active hydrocodone 10 mg-acetaminophen 325 mg tablet RxNorm: 543165 1-2 Tablet(s) PO Q6 as needed for pain 12/03/2017 12/25/2017 Inactive Ventolin HFA 90 mcg/actuation aerosol inhaler RxNorm: 976006 1 OR 2 PUFF(S) INH Q6 PRN NEEDED 11/26/2017 01/12/2018 Inactive Savella 100 mg tablet RxNorm: 753612 TABLET(S) PO TAKE 1 TABLET BY MOUTH DAILY 11/23/2017 No Stop Date Active Effexor XR 150 mg capsule,extended release RxNorm: 597606 1 CAPSULE(S) PO BID 1 CAPSULE(S) PO BID 11/23/2017 04/21/2018 Inactive TAKE 1 CAPSULE BY MOUTH TWICE DAILY diazepam 10 mg tablet RxNorm: 714713 Tablet(s) TAKE 1 TABLET BY MOUTH FOUR TIMES DAILY NEEDED 11/23/2017 03/09/2018 Inactive Claritin-D 12 Hour 5 mg-120 mg tablet,extended release RxNorm: 1026242 Tablet(s) as needed TAKE 1 TABLET BY MOUTH TWICE DAILY NEEDED 201706/14/2018 Inactive Valium 10 mg tablet RxNorm: 156592 1 Tablet(s) QID as needed 11/16/2017 01/14/2018 Inactive metoprolol tartrate 25 mg tablet RxNorm: 856887 TABLET(S) TABLET(S) 1/2 TABLET(S) PO BID TAKE 1/2 TABLET BY MOUTH TWICE DAILY 11/12/2017 No Stop Date Active pantoprazole 40 mg tablet,delayed release RxNorm: 862856 TAKE 1 TABLET BY MOUTH EVERY DAY 11/12/2017 05/10/2018 Inactive betamethasone dipropionate 0.05 % topical cream RxNorm: 432490 1 APPLICATION TOP BID 10/22/2017 11/04/2017 Inactive tramadol 50 mg tablet RxNorm: 565816 1-2 Tablet(s) PO TID as needed 10/20/2017 01/16/2018 Inactive prednisone 10 mg tablets in a dose pack RxNorm: 102247 1 Tablet(s) PO UD 10/19/2017 10/24/2017 Inactive 6-5-4-3-2-1 cyanocobalamin (vit B-12) 1,000 mcg/mL injection solution RxNorm: 821803 1 Milliliter(s) Inj 10/19/2017 10/19/2017 Inactive betamethasone dipropionate 0.05 % topical cream RxNorm: 117075 1 Application TOP BID 10/19/2017 10/21/2017 Inactive hydrocodone 10 mg-acetaminophen 325 mg tablet RxNorm: 350305 1-2 Tablet(s) PO Q6 as needed for pain 10/19/2017 11/10/2017 Inactive Effexor XR 150 mg capsule,extended release RxNorm: 465675 1 Capsule(s) PO BID 1 CAPSULE(S) PO BID 10/19/2017 11/22/2017 Inactive TAKE 1 CAPSULE BY MOUTH TWICE DAILY prednisone 5 mg tablet RxNorm: 615572 1 Tablet(s) PO UD 2017 No Stop Date Active Cipro 500 mg tablet RxNorm: 504497 1 Tablet(s) PO BID 201709/26/2017 Inactive Flagyl 500 mg tablet RxNorm: 688563 1 Tablet(s) PO TID 201709/26/2017 Inactive prednisone 10 mg tablet RxNorm: 155909 1 Tablet(s) PO UD 201709/16/2017 Inactive 2 tabs daily x 3 days 1 tab daily x 3 daily then resume usual 5mg daily hydrocodone 10 mg-acetaminophen 325 mg tablet RxNorm: 394512 1-2 Tablet(s) PO Q6 as needed for pain 09/10/2017 10/02/2017 Inactive Savella 100 mg tablet RxNorm: 544850 TABLET(S) PO TAKE 1 TABLET BY MOUTH DAILY 08/31/2017 No Stop Date Active cyanocobalamin (vit B-12) 1,000 mcg/mL injection solution RxNorm: 107249 1 Milliliter(s) Inj 08/19/2017 08/19/2017 Inactive pantoprazole 40 mg tablet,delayed release RxNorm: 580235 TAKE 1 TABLET BY MOUTH EVERY DAY 08/17/2017 11/11/2017 Inactive trazodone 100 mg tablet RxNorm: 541400 TABLET(S) TAKE 2 TABLETS BY MOUTH EVERY NIGHT AT BEDTIME 08/17/2017 12/06/2017 Inactive Ventolin HFA 90 mcg/actuation aerosol inhaler RxNorm: 758507 1 OR 2 PUFF(S) INH Q6 PRN NEEDED 08/11/2017 01/07/2018 Inactive Advair Diskus 250 mcg-50 mcg/dose powder for inhalation RxNorm: 8205857 1 Puff(s) INH BID 08/11/2017 12/08/2017 Inactive Advair Diskus 250 mcg-50 mcg/dose powder for inhalation RxNorm: 1272052 1 PUFF(S) INH BID 08/11/2017 11/08/2017 Inactive Ventolin HFA 90 mcg/actuation aerosol inhaler RxNorm: 301310 1 OR 2 PUFF(S) INH Q6 PRN NEEDED 08/11/2017 11/25/2017 Inactive hydrocodone 10 mg-acetaminophen 325 mg tablet RxNorm: 763102 1-2 Tablet(s) PO Q6 as needed for pain 08/03/2017 08/25/2017 Inactive tramadol 50 mg tablet RxNorm: 841925 1-2 Tablet(s) PO TID as needed 07/26/2017 04/19/2018 Inactive Valium 10 mg tablet RxNorm: 272389 1 Tablet(s) QID as needed 07/09/2017 09/06/2017 Inactive Effexor XR 150 mg capsule,extended release RxNorm: 528090 Capsule(s) 1 CAPSULE(S) PO BID 07/07/2017 10/18/2017 Inactive TAKE 1 CAPSULE BY MOUTH TWICE DAILY metoprolol tartrate 25 mg tablet RxNorm: 791207 Tablet(s) TABLET(S) 1/2 TABLET(S) PO BID TAKE 1/2 TABLET BY MOUTH TWICE DAILY 07/07/2017 11/11/2017 Inactive diazepam 10 mg tablet RxNorm: 445538 Tablet(s) TAKE 1 TABLET BY MOUTH FOUR TIMES DAILY NEEDED 07/07/2017 08/02/2017 Inactive cyanocobalamin (vit B-12) 1,000 mcg/mL injection solution RxNorm: 046861 1 Milliliter(s) Inj 07/06/2017 07/06/2017 Inactive tramadol 50 mg tablet RxNorm: 747310 1-2 Tablet(s) PO TID as needed 06/21/2017 09/17/2017 Inactive hydrocodone 10 mg-acetaminophen 325 mg tablet RxNorm: 421225 1-2 Tablet(s) PO Q6 as needed for pain 06/17/2017 07/09/2017 Inactive cyclobenzaprine 10 mg tablet RxNorm: 418362 TAKE 1 TABLET BY MOUTH THREE TIMES DAILY NEEDED FOR MUSCLE SPASMS 06/08/2017 08/31/2018 Active Claritin-D 12 Hour 5 mg-120 mg tablet,extended release RxNorm: 4669745 Tablet(s) as needed TAKE 1 TABLET BY MOUTH TWICE DAILY NEEDED 201709/04/2017 Inactive Lipitor 20 mg tablet RxNorm: 897676 1 TABLET(S) PO DAILY 201705/17/2018 Inactive TAKE ONE TABLET BY MOUTH EVERY NIGHT AT BEDTIME trazodone 100 mg tablet RxNorm: 833120 TABLET(S) TAKE 2 TABLETS BY MOUTH EVERY NIGHT AT BEDTIME 05/17/2017 08/14/2017 Inactive cyclobenzaprine 5 mg tablet RxNorm: 772958 Tablet(s) PO TAKE 1 TABLET BY MOUTH THREE TIMES DAILY NEEDED FOR MUSCLE SPASMS (New dose has not been sent to pharmacy) 05/11/2017 No Stop Date Active Valium 5 mg tablet RxNorm: 428417 1 Tablet(s) PO QID as needed (New dose has not been sent to pharmacy) 05/11/2017 Inactive diazepam 10 mg tablet RxNorm: 837620 TAKE 1 TABLET BY MOUTH FOUR TIMES DAILY NEEDED 04/28/2017 05/27/2017 Inactive hydrocodone 10 mg-acetaminophen 325 mg tablet RxNorm: 596575 1-2 Tablet(s) PO Q6 as needed for pain 04/27/2017 05/19/2017 Inactive cyanocobalamin (vit B-12) 1,000 mcg/mL injection solution RxNorm: 532855 1 Milliliter(s) Inj 04/27/2017 04/27/2017 Inactive hydrocodone 10 mg-acetaminophen 325 mg tablet RxNorm: 260938 1-2 Tablet(s) PO Q6 as needed for pain 03/17/2017 04/08/2017 Inactive Seroquel 100 mg tablet RxNorm: 351109 1 TABLET(S) PO BID 201603/06/2018 Inactive TAKE 1 TABLET BY MOUTH TWICE DAILY Valium 10 mg tablet RxNorm: 303656 1 Tablet(s) QID as needed 03/05/2017 05/03/2017 Inactive Claritin-D 12 Hour 5 mg-120 mg tablet,extended release RxNorm: 8494145 Tablet(s) as needed TAKE 1 TABLET BY MOUTH TWICE DAILY NEEDED 201604/13/2018 Inactive pantoprazole 40 mg tablet,delayed release RxNorm: 540720 TAKE 1 TABLET BY MOUTH EVERY DAY 02/26/2017 08/16/2017 Inactive tramadol 50 mg tablet RxNorm: 036466 1-2 Tablet(s) PO TID as needed 02/17/2017 05/17/2017 Inactive hydrocodone 10 mg-acetaminophen 325 mg tablet RxNorm: 923878 1-2 Tablet(s) PO Q6 as needed for pain 02/17/2017 03/11/2017 Inactive Valium 10 mg tablet RxNorm: 449967 1 Tablet(s) QID as needed 02/02/2017 03/03/2017 Inactive (Response to an electronic controlled substance refill request - RxReferenceNumber: [id number]|1|0|1) nystatin 100,000 unit/gram topical powder RxNorm: 149917 1 APPLICATION TOP QID UNTIL HEALED 01/21/2017 No Stop Date Active Advair Diskus 250 mcg-50 mcg/dose powder for inhalation RxNorm: 9299704 1 Puff(s) INH BID 01/21/2017 05/20/2017 Inactive hydrocodone 10 mg-acetaminophen 325 mg tablet RxNorm: 191841 1-2 Tablet(s) PO Q6 as needed for pain 01/21/2017 02/11/2017 Inactive metoprolol tartrate 25 mg tablet RxNorm: 969952 TABLET(S) 1/2 TABLET(S) PO BID TAKE 1/2 TABLET BY MOUTH TWICE DAILY 01/18/2017 07/06/2017 Inactive Effexor XR 150 mg capsule,extended release RxNorm: 572007 1 CAPSULE(S) PO BID 01/11/2017 07/06/2017 Inactive TAKE 1 CAPSULE BY MOUTH TWICE DAILY Effexor XR 150 mg capsule,extended release RxNorm: 000269 1 Capsule(s) PO BID 1 CAPSULE(S) PO BID 01/08/2017 07/06/2017 Inactive TAKE 1 CAPSULE BY MOUTH TWICE DAILY nystatin 100,000 unit/gram topical powder RxNorm: 137876 1 APPLICATION TOP QID UNTIL HEALED 12/17/2016 01/20/2017 Inactive hydrocodone 10 mg-acetaminophen 325 mg tablet RxNorm: 332057 1-2 Tablet(s) PO Q6 as needed for pain 12/17/2016 01/07/2017 Inactive Claritin-D 12 Hour 5 mg-120 mg tablet,extended release RxNorm: 7841190 Tablet(s) as needed TAKE 1 TABLET BY MOUTH TWICE DAILY NEEDED 201602/12/2017 Inactive Lipitor 20 mg tablet RxNorm: 635494 1 TABLET(S) PO DAILY 201606/07/2017 Inactive TAKE ONE TABLET BY MOUTH EVERY NIGHT AT BEDTIME Advair Diskus 250 mcg-50 mcg/dose powder for inhalation RxNorm: 0599957 1 Puff(s) INH BID 11/26/2016 01/20/2017 Inactive Valium 10 mg tablet RxNorm: 797278 1 Tablet(s) QID as needed 11/24/2016 01/22/2017 Inactive (Response to an electronic controlled substance refill request - RxReferenceNumber: [id number]|1|0|1) cyanocobalamin (vit B-12) 1,000 mcg/mL injection solution RxNorm: 819761 1 Milliliter(s) Inj 11/17/2016 11/17/2016 Inactive tramadol 50 mg tablet RxNorm: 773609 1-2 Tablet(s) PO TID as needed 11/06/2016 10/19/2017 Inactive hydrocodone 10 mg-acetaminophen 325 mg tablet RxNorm: 346467 1-2 Tablet(s) PO Q6 as needed for pain 11/06/2016 11/27/2016 Inactive nystatin 100,000 unit/gram topical powder RxNorm: 280826 1 Application TOP QID until healed 10/27/2016 12/16/2016 Inactive cyanocobalamin (vit B-12) 1,000 mcg/mL injection solution RxNorm: 435344 1 Milliliter(s) Inj 10/12/2016 10/12/2016 Inactive trazodone 100 mg tablet RxNorm: 424632 Tablet(s) TAKE 2 TABLETS BY MOUTH EVERY NIGHT AT BEDTIME 09/24/2016 03/22/2017 Inactive Valium 10 mg tablet RxNorm: 179692 1 Tablet(s) QID as needed 09/24/2016 11/22/2016 Inactive (Response to an electronic controlled substance refill request - RxReferenceNumber: [id number]|1|0|1) Savella 100 mg tablet RxNorm: 980764 TABLET(S) PO TAKE 1 TABLET BY MOUTH DAILY 09/18/2016 08/30/2017 Inactive pantoprazole 40 mg tablet,delayed release RxNorm: 378271 TAKE 1 TABLET BY MOUTH EVERY DAY 09/18/2016 02/25/2017 Inactive cyanocobalamin (vit B-12) 1,000 mcg/mL injection solution RxNorm: 706661 1 Milliliter(s) Inj 09/11/2016 09/11/2016 Inactive hydrocodone 10 mg-acetaminophen 325 mg tablet RxNorm: 288680 1-2 Tablet(s) PO Q6 as needed for pain 08/24/2016 11/05/2016 Inactive (Response to an electronic controlled substance refill request - RxReferenceNumber: [id number]|1|0|1) Claritin-D 12 Hour 5 mg-120 mg tablet,extended release RxNorm: 5851265 Tablet(s) TAKE 1 TABLET BY MOUTH TWICE DAILY NEEDED 08/13/2016 04/13/2018 Inactive tramadol 50 mg tablet RxNorm: 896340 1-2 Tablet(s) PO TID PRN as needed 08/11/2016 11/05/2016 Inactive metoprolol tartrate 25 mg tablet RxNorm: 553269 TABLET(S) 1/2 TABLET(S) PO BID TAKE 1/2 TABLET BY MOUTH TWICE DAILY 08/10/2016 01/17/2017 Inactive pantoprazole 40 mg tablet,delayed release RxNorm: 727658 TAKE 1 TABLET BY MOUTH EVERY DAY 08/10/2016 11/05/2016 Inactive Savella 100 mg tablet RxNorm: 571954 TABLET(S) PO TAKE 1 TABLET BY MOUTH DAILY 08/10/2016 11/05/2016 Inactive Ventolin HFA 90 mcg/actuation aerosol inhaler RxNorm: 054828 1 OR 2 PUFF(S) INH Q6 PRN NEEDED 08/07/2016 02/02/2017 Inactive Diflucan 150 mg tablet RxNorm: 760945 1 Tablet(s) PO daily 08/201608/13/2016 Inactive nystatin 100,000 unit/mL oral suspension RxNorm: 193882 5 Milliliter(s) PO QID 08/07/2016 08/16/2016 Inactive hydrocodone 10 mg-acetaminophen 325 mg tablet RxNorm: 586729 1-2 Tablet(s) PO Q6 as needed for pain 08/04/2016 08/23/2016 Inactive (Response to an electronic controlled substance refill request - RxReferenceNumber: [id number]|1|0|1) Valium 10 mg tablet RxNorm: 284214 1 Tablet(s) QID as needed 07/20/2016 09/17/2016 Inactive (Response to an electronic controlled substance refill request - RxReferenceNumber: [id number]|1|0|1) tramadol 50 mg tablet RxNorm: 041638 1-2 Tablet(s) PO TID PRN as needed 07/15/2016 11/05/2016 Inactive ok to give 1 month nqyvhc=040 tablets cyanocobalamin (vit B-12) 1,000 mcg/mL injection solution RxNorm: 818832 Milliliter(s) Inj 07/03/2016 07/03/2016 Inactive Seroquel 100 mg tablet RxNorm: 773889 1 TABLET(S) PO BID 201603/15/2017 Inactive TAKE 1 TABLET BY MOUTH TWICE DAILY hydrocodone 10 mg-acetaminophen 325 mg tablet RxNorm: 295310 1-2 Tablet(s) PO Q6 as needed for pain 06/26/2016 08/03/2016 Inactive (Response to an electronic controlled substance refill request - RxReferenceNumber: [id number]|1|0|1) Valium 10 mg tablet RxNorm: 655423 1 Tablet(s) QID as needed 05/11/2016 07/09/2016 Inactive (Response to an electronic controlled substance refill request - RxReferenceNumber: [id number]|1|0|1) tramadol 50 mg tablet RxNorm: 973327 1-2 Tablet(s) PO TID PRN as needed 05/11/2016 07/08/2016 Inactive ok to give 1 month ddzewk=855 tablets cyclobenzaprine 10 mg tablet RxNorm: 619706 TAKE 1 TABLET BY MOUTH THREE TIMES DAILY NEEDED FOR MUSCLE SPASMS 05/11/2016 05/10/2017 Inactive hydrocodone 10 mg-acetaminophen 325 mg tablet RxNorm: 298781 1-2 Tablet(s) PO Q6 as needed for pain 05/06/2016 06/25/2016 Inactive (Response to an electronic controlled substance refill request - RxReferenceNumber: [id number]|1|0|1) cyanocobalamin (vit B-12) 1,000 mcg/mL injection solution RxNorm: 125544 1 Milliliter(s) Inj 04/20/2016 04/20/2016 Inactive hydrocodone 10 mg-acetaminophen 325 mg tablet RxNorm: 705512 1-2 Tablet(s) PO Q6 as needed for pain 04/03/2016 05/05/2016 Inactive (Response to an electronic controlled substance refill request - RxReferenceNumber: [id number]|1|0|1) pantoprazole 40 mg tablet,delayed release RxNorm: 088984 TAKE 1 TABLET BY MOUTH EVERY DAY 04/02/2016 08/09/2016 Inactive Claritin-D 12 Hour 5 mg-120 mg tablet,extended release RxNorm: 9963863 Tablet(s) TAKE 1 TABLET BY MOUTH TWICE DAILY NEEDED 04/02/2016 11/05/2016 Inactive hydrocodone 10 mg-acetaminophen 325 mg tablet RxNorm: 398871 1-2 Tablet(s) PO Q6 as needed for pain 03/12/2016 04/02/2016 Inactive (Response to an electronic controlled substance refill request - RxReferenceNumber: [id number]|1|0|1) Effexor XR 150 mg capsule,extended release RxNorm: 855862 1 CAPSULE(S) PO BID 03/05/2016 01/07/2017 Inactive TAKE 1 CAPSULE BY MOUTH TWICE DAILY Ventolin HFA 90 mcg/actuation aerosol inhaler RxNorm: 651953 1 OR 2 PUFF(S) INH Q6 PRN NEEDED 02/19/2016 08/06/2016 Inactive cyanocobalamin (vit B-12) 1,000 mcg/mL injection solution RxNorm: 881656 Milliliter(s) Inj 02/13/2016 02/13/2016 Inactive hydrocodone 10 mg-acetaminophen 325 mg tablet RxNorm: 614943 1-2 Tablet(s) PO Q6 as needed for pain 02/05/2016 03/11/2016 Inactive (Response to an electronic controlled substance refill request - RxReferenceNumber: [id number]|1|0|1) Valium 10 mg tablet RxNorm: 484025 1 Tablet(s) QID as needed 02/05/2016 05/04/2016 Inactive (Response to an electronic controlled substance refill request - RxReferenceNumber: [id number]|1|0|1) tramadol 50 mg tablet RxNorm: 896588 1-2 Tablet(s) PO TID PRN as needed 02/05/2016 11/05/2016 Inactive ok to give 1 month rymntq=840 tablets hydrocodone 10 mg-acetaminophen 325 mg tablet RxNorm: 132197 1-2 Tablet(s) PO Q6 as needed for pain 01/08/2016 02/04/2016 Inactive (Response to an electronic controlled substance refill request - RxReferenceNumber: [id number]|1|0|1) metoprolol tartrate 25 mg tablet RxNorm: 186305 Tablet(s) 1/2 TABLET(S) PO BID TAKE 1/2 TABLET BY MOUTH TWICE DAILY 01/08/2016 08/09/2016 Inactive Symbicort 160 mcg-4.5 mcg/actuation HFA aerosol inhaler RxNorm: 4193925 2 INH BID 01/03/2016 11/25/2016 Inactive Symbicort 160 mcg-4.5 mcg/actuation HFA aerosol inhaler RxNorm: 7165005 1 INH daily 01/03/2016 01/02/2016 Inactive Lipitor 20 mg tablet RxNorm: 616877 1 TABLET(S) PO DAILY 201506/26/2016 Inactive TAKE ONE TABLET BY MOUTH EVERY NIGHT AT BEDTIME trazodone 100 mg tablet RxNorm: 391212 TAKE 2 TABLETS BY MOUTH EVERY NIGHT AT BEDTIME 12/30/2015 09/23/2016 Inactive Savella 100 mg tablet RxNorm: 664012 TABLET(S) PO TAKE 1 TABLET BY MOUTH DAILY 12/30/2015 08/09/2016 Inactive hydrocodone 10 mg-acetaminophen 325 mg tablet RxNorm: 339336 1-2 Tablet(s) PO Q6 as needed for pain 12/12/2015 01/07/2016 Inactive (Response to an electronic controlled substance refill request - RxReferenceNumber: [id number]|1|0|1) cyanocobalamin (vit B-12) 1,000 mcg/mL injection solution RxNorm: 243926 1 Milliliter(s) Inj 12/02/2015 12/02/2015 Inactive hydrocodone 10 mg-acetaminophen 325 mg tablet RxNorm: 078843 1-2 Tablet(s) PO Q6 as needed for pain 12/02/2015 12/11/2015 Inactive (Response to an electronic controlled substance refill request - RxReferenceNumber: [id number]|1|0|1) Claritin-D 12 Hour 5 mg-120 mg tablet,extended release RxNorm: 4824482 Tablet(s) TAKE 1 TABLET BY MOUTH TWICE DAILY 11/11/2015 11/10/2015 Inactive Claritin-D 12 Hour 5 mg-120 mg tablet,extended release RxNorm: 0595029 Tablet(s) TAKE 1 TABLET BY MOUTH TWICE DAILY NEEDED 11/11/2015 01/06/2016 Inactive tramadol 50 mg tablet RxNorm: 660542 1-2 Tablet(s) PO TID PRN as needed 11/05/2015 11/05/2016 Inactive ok to give 1 month fgkczc=735 tablets Valium 10 mg tablet RxNorm: 871450 1 Tablet(s) QID as needed 11/05/2015 02/02/2016 Inactive (Response to an electronic controlled substance refill request - RxReferenceNumber: [id number]|1|0|1) cyanocobalamin (vit B-12) 1,000 mcg/mL injection solution RxNorm: 051840 1 Milliliter(s) Inj 10/29/2015 10/29/2015 Inactive hydrocodone 10 mg-acetaminophen 325 mg tablet RxNorm: 424419 1-2 Tablet(s) PO Q6 as needed for pain 10/28/2015 12/01/2015 Inactive (Response to an electronic controlled substance refill request - RxReferenceNumber: [id number]|1|0|1) pantoprazole 40 mg tablet,delayed release RxNorm: 762958 TAKE 1 TABLET BY MOUTH EVERY DAY 10/08/2015 04/01/2016 Inactive Seroquel 100 mg tablet RxNorm: 291171 1 TABLET(S) PO BID 201506/29/2016 Inactive TAKE 1 TABLET BY MOUTH TWICE DAILY trazodone 100 mg tablet RxNorm: 896655 TAKE 2 TABLETS BY MOUTH EVERY NIGHT AT BEDTIME 10/08/2015 10/01/2016 Inactive Lipitor 20 mg tablet RxNorm: 854775 1 TABLET(S) PO DAILY 201504/04/2016 Inactive TAKE ONE TABLET BY MOUTH EVERY NIGHT AT BEDTIME hydrocodone 10 mg-acetaminophen 325 mg tablet RxNorm: 972976 1-2 Tablet(s) PO Q6 as needed for pain 09/19/2015 10/18/2015 Inactive (Response to an electronic controlled substance refill request - RxReferenceNumber: [id number]|1|0|1) Valium 10 mg tablet RxNorm: 631094 1 Tablet(s) QID as needed 09/05/2015 11/03/2015 Inactive (Response to an electronic controlled substance refill request - RxReferenceNumber: [id number]|1|0|1) Savella 100 mg tablet RxNorm: 651609 Tablet(s) PO TAKE 1 TABLET BY MOUTH DAILY 07/19/2015 11/05/2016 Inactive Zithromax Z-Lauro 250 mg tablet RxNorm: 301381 1 Tablet(s) PO UD 07/12/2015 11/04/2015 Inactive z lauro hydrocodone 10 mg-acetaminophen 325 mg tablet RxNorm: 876067 1-2 Tablet(s) PO Q6 as needed for pain 07/10/2015 08/08/2015 Inactive (Response to an electronic controlled substance refill request - RxReferenceNumber: [id number]|1|0|1) tramadol 50 mg tablet RxNorm: 418132 1-2 Tablet(s) PO TID PRN as needed 07/04/2015 11/05/2016 Inactive ok to give 1 month ozkmcy=015 tablets hydrocodone 10 mg-acetaminophen 325 mg tablet RxNorm: 611604 1-2 Tablet(s) PO Q6 as needed for pain 06/10/2015 07/09/2015 Inactive (Response to an electronic controlled substance refill request - RxReferenceNumber: [id number]|1|0|1) cyanocobalamin (vit B-12) 1,000 mcg/mL injection solution RxNorm: 530873 Milliliter(s) Inj 06/10/2015 06/10/2015 Inactive pantoprazole 40 mg tablet,delayed release RxNorm: 961454 TABLET(S) PO TAKE 1 TABLET BY MOUTH EVERY DAY 06/10/201511/05 Inactive pantoprazole 40 mg tablet,delayed release RxNorm: 899375 Tablet(s) PO TAKE 1 TABLET BY MOUTH EVERY DAY 06/06/201511/05 Inactive tramadol 50 mg tablet RxNorm: 203042 1-2 Tablet(s) PO TID PRN as needed 05/29/2015 06/27/2015 Inactive ok to give 1 month otrnqw=015 tablets tramadol 50 mg tablet RxNorm: 203605 1-2 Tablet(s) PO Q6 as needed 05/29/2015 06/09/2015 Inactive Valium 10 mg tablet RxNorm: 146918 1 Tablet(s) QID as needed 05/08/2015 07/06/2015 Inactive (Response to an electronic controlled substance refill request - RxReferenceNumber: [id number]|1|0|1) cyclobenzaprine 10 mg tablet RxNorm: 969625 TAKE 1 TABLET BY MOUTH THREE TIMES DAILY NEEDED FOR MUSCLE SPASMS 05/08/2015 05/10/2016 Inactive Effexor XR 150 mg capsule,extended release RxNorm: 338816 1 Capsule(s) PO BID 1 CAPSULE(S) PO BID 05/08/2015 11/05/2016 Inactive TAKE 1 CAPSULE BY MOUTH TWICE DAILY hydrocodone 10 mg-acetaminophen 325 mg tablet RxNorm: 930710 1-2 Tablet(s) PO Q6 as needed for pain 05/08/2015 06/06/2015 Inactive (Response to an electronic controlled substance refill request - RxReferenceNumber: [id number]|1|0|1) metoprolol tartrate 25 mg tablet RxNorm: 119683 1/2 TABLET(S) PO BID TAKE 1/2 TABLET BY MOUTH TWICE DAILY 05/06/201507/2015 Inactive Claritin-D 12 Hour 5 mg-120 mg tablet,extended release RxNorm: 9181805 TAKE 1 TABLET BY MOUTH TWICE DAILY 04/16/201506/2016 Inactive hydrocodone 10 mg-acetaminophen 325 mg tablet RxNorm: 066987 1-2 Tablet(s) PO Q6 as needed for pain 04/15/2015 05/07/2015 Inactive (Response to an electronic controlled substance refill request - RxReferenceNumber: [id number]|1|0|1) pantoprazole 40 mg tablet,delayed release RxNorm: 684846 TABLET(S) PO TAKE 1 TABLET BY MOUTH EVERY DAY 04/08/201506/06 Inactive hydrocodone 10 mg-acetaminophen 325 mg tablet RxNorm: 055483 1 Tablet(s) PO Q4 PRN TAKE 1-2 TABLETS BY MOUTH EVERY 6 HOURS NEEDED FOR PAIN 03/14/2015 04/12/2015 Inactive (Response to an electronic controlled substance refill request - RxReferenceNumber: [id number]|1|0|1) diazepam 10 mg tablet RxNorm: 099350 1 Tablet(s) TID TAKE 1 TABLET BY MOUTH THREE TIMES DAILY NEEDED 02/08/20152016 Inactive (Response to an electronic controlled substance refill request - RxReferenceNumber: [id number]|1|0|1) Effexor XR 150 mg capsule,extended release RxNorm: 878906 1 CAPSULE(S) PO BID 02/07/2015 05/07/2015 Inactive TAKE 1 CAPSULE BY MOUTH TWICE DAILY cyclobenzaprine 10 mg tablet RxNorm: 574217 TAKE 1 TABLET BY MOUTH THREE TIMES DAILY NEEDED FOR MUSCLE SPASMS 02/07/2015 05/07/2015 Inactive pantoprazole 40 mg tablet,delayed release RxNorm: 200146 TABLET(S) PO TAKE 1 TABLET BY MOUTH EVERY DAY 02/07/201504/07 Inactive hydrocodone 10 mg-acetaminophen 325 mg tablet RxNorm: 244515 1 Tablet(s) PO Q4 PRN TAKE 1-2 TABLETS BY MOUTH EVERY 6 HOURS NEEDED FOR PAIN 01/25/2015 02/23/2015 Inactive (Response to an electronic controlled substance refill request - RxReferenceNumber: [id number]|1|0|1) Bactroban Nasal 2 % ointment RxNorm: 569426 1 Application NASAL BID 01/10/2015 01/10/2015 Inactive mupirocin 2 % topical ointment RxNorm: 943772 1 Application TOP TID 1 APPLICATION TOP PRN 01/10/2015 01/19/2015 Inactive disregard order for nasal ointment , use on left knee trazodone 100 mg tablet RxNorm: 341222 TAKE 2 TABLETS BY MOUTH EVERY NIGHT AT BEDTIME 01/08/2015 10/07/2015 Inactive Seroquel 100 mg tablet RxNorm: 449122 1 TABLET(S) PO BID 201410/04/2015 Inactive TAKE 1 TABLET BY MOUTH TWICE DAILY cyclobenzaprine 10 mg tablet RxNorm: 129501 TAKE 1 TABLET BY MOUTH THREE TIMES DAILY NEEDED FOR MUSCLE SPASMS 01/08/2015 02/06/2015 Inactive hydrocodone 10 mg-acetaminophen 325 mg tablet RxNorm: 978668 1 Tablet(s) PO Q4 PRN TAKE 1-2 TABLETS BY MOUTH EVERY 6 HOURS NEEDED FOR PAIN 12/21/2014 01/19/2015 Inactive (Response to an electronic controlled substance refill request - RxReferenceNumber: [id number]|1|0|1) pantoprazole 40 mg tablet,delayed release RxNorm: 245011 TABLET(S) PO TAKE 1 TABLET BY MOUTH EVERY DAY 12/13/201402/06 Inactive Lipitor 20 mg tablet RxNorm: 867347 1 Tablet(s) PO daily 201409/08/2015 Inactive TAKE ONE TABLET BY MOUTH EVERY NIGHT AT BEDTIME Valium 10 mg tablet RxNorm: 179280 1 Tablet(s) QID as needed 12/12/2014 02/09/2015 Inactive (Response to an electronic controlled substance refill request - RxReferenceNumber: [id number]|1|0|1) hydrocodone 10 mg-acetaminophen 325 mg tablet RxNorm: 351694 Tablet(s) TAKE 1-2 TABLETS BY MOUTH EVERY 6 HOURS NEEDED FOR PAIN 12/12/2014 12/20/2014 Inactive ( Response to an electronic controlled substance refill request - RxReferenceNumber: [id number]|1|0|1) Lipitor 20 mg tablet RxNorm: 891120 1 Tablet(s) PO daily 201412/12/2014 Inactive TAKE ONE TABLET BY MOUTH EVERY NIGHT AT BEDTIME pantoprazole 40 mg tablet,delayed release RxNorm: 603873 TABLET(S) PO TAKE 1 TABLET BY MOUTH EVERY DAY 12/06/201411/05 Inactive Savella 100 mg tablet RxNorm: 881994 Tablet(s) PO TAKE 1 TABLET BY MOUTH DAILY 12/06/2014 07/18/2015 Inactive Lipitor 20 mg tablet RxNorm: 648380 1 Tablet(s) PO daily 201412/10/2014 Inactive TAKE ONE TABLET BY MOUTH EVERY NIGHT AT BEDTIME Valium 10 mg tablet RxNorm: 302383 TAKE 1 TABLET BY MOUTH FOUR TIMES DAILY NEEDED FOR ANXIETY 12/06/2014 12/11/2014 Inactive Valium 10 mg tablet RxNorm: 211989 1 Tablet(s) QID as needed 11/13/2014 12/11/2014 Inactive (Response to an electronic controlled substance refill request - RxReferenceNumber: [id number]|1|0|1) hydrocodone 10 mg-acetaminophen 325 mg tablet RxNorm: 800114 Tablet(s) TAKE 1-2 TABLETS BY MOUTH EVERY 6 HOURS NEEDED FOR PAIN 11/13/2014 12/11/2014 Inactive ( Response to an electronic controlled substance refill request - RxReferenceNumber: [id number]|1|0|1) hydrocodone 10 mg-acetaminophen 325 mg tablet RxNorm: 967181 Tablet(s) TAKE 1-2 TABLETS BY MOUTH EVERY 6 HOURS NEEDED FOR PAIN 11/08/2014 11/12/2014 Inactive ( Response to an electronic controlled substance refill request - RxReferenceNumber: [id number]|1|0|1) Valium 10 mg tablet RxNorm: 140123 1 Tablet(s) QID as needed 11/08/2014 11/12/2014 Inactive (Response to an electronic controlled substance refill request - RxReferenceNumber: [id number]|1|0|1) metoprolol tartrate 25 mg tablet RxNorm: 535082 1/2 TABLET(S) PO BID TAKE 1/2 TABLET BY MOUTH TWICE DAILY 11/08/2014 Inactive Valium 10 mg tablet RxNorm: 600792 TAKE 1 TABLET BY MOUTH FOUR TIMES DAILY NEEDED FOR ANXIETY 11/06/2014 12/09/2014 Inactive Vitamin D2 50,000 unit capsule RxNorm: 247734 1 Capsule(s) PO QW 10/24/2014 10/23/2014 Inactive Vitamin D2 50,000 unit capsule RxNorm: 747717 1 Capsule(s) PO QW x 8 weeks 10/24/2014 12/22/2014 Inactive Entyvio 300 mg intravenous solution RxNorm: 0135233 IV 2014 No Stop Date Active hydrocodone 10 mg-acetaminophen 325 mg tablet RxNorm: 527512 Tablet(s) TAKE 1-2 TABLETS BY MOUTH EVERY 6 HOURS NEEDED FOR PAIN 10/05/2014 11/03/2014 Inactive ( Response to an electronic controlled substance refill request - RxReferenceNumber: [id number]|1|0|1) Valium 10 mg tablet RxNorm: 289140 TAKE 1 TABLET BY MOUTH EVERY 8 HOURS NEEDED 10/05/2014 11/03/2014 Inactive (Response to an electronic controlled substance refill request - RxReferenceNumber: [id number]|1|0|1) Valium 10 mg tablet RxNorm: 927990 1 Tablet(s) PO QID as needed TAKE 1 TABLET BY MOUTH 10/05/2014 11/05/2016 Inactive (Response to an electronic controlled substance refill request - RxReferenceNumber: [id number]|1|0|1) Valium 10 mg tablet RxNorm: 911450 TAKE 1 TABLET BY MOUTH THREE TIMES DAILY NEEDED 09/04/2014 10/03/2014 Inactive (Response to an electronic controlled substance refill request - RxReferenceNumber: [id number]|1|0|1) Valium 10 mg tablet RxNorm: 704856 1 Tablet(s) PO Q8 PRN as needed 09/04/2014 11/09/2014 Inactive hydrocodone 10 mg-acetaminophen 325 mg tablet RxNorm: 790871 Tablet(s) TAKE 1-2 TABLETS BY MOUTH EVERY 6 HOURS NEEDED FOR PAIN 08/27/2014 09/25/2014 Inactive ( Response to an electronic controlled substance refill request - RxReferenceNumber: [id number]|1|0|1) Claritin-D 12 Hour 5 mg-120 mg tablet,extended release RxNorm: 1090674 1 Tablet(s ) PO BID 08/27/2014 04/16/2015 Inactive Ventolin HFA 90 mcg/actuation aerosol inhaler RxNorm: 033443 1 or 2 Puff(s) INH Q6 PRN as needed 08/09/2014 03/06/2015 Inactive pantoprazole 40 mg tablet,delayed release RxNorm: 358347 Tablet(s) PO TAKE 1 TABLET BY MOUTH EVERY DAY 08/09/201408/08 Inactive pantoprazole 40 mg tablet,delayed release RxNorm: 060971 TAKE 1 TABLET BY MOUTH EVERY DAY 08/09/2014 11/05/2016 Inactive diazepam 10 mg tablet RxNorm: 773897 TAKE 1 TABLET BY MOUTH THREE TIMES DAILY NEEDED 07/02/2014 07/31/2014 Inactive (Response to an electronic controlled substance refill request - RxReferenceNumber: [id number]|1|0|1) Valium 10 mg tablet RxNorm: 795617 1 Tablet(s) PO Q8 PRN as needed 07/02/2014 07/01/2014 Inactive hydrocodone 10 mg-acetaminophen 325 mg tablet RxNorm: 490813 Tablet(s) TAKE 1-2 TABLETS BY MOUTH EVERY 6 HOURS NEEDED FOR PAIN 06/14/2014 07/13/2014 Inactive ( Response to an electronic controlled substance refill request - RxReferenceNumber: [id number]|1|0|1) diazepam 10 mg tablet RxNorm: 514252 TAKE 1 TABLET BY MOUTH THREE TIMES DAILY NEEDED 05/29/2014 06/27/2014 Inactive (Response to an electronic controlled substance refill request - RxReferenceNumber: [id number]|1|0|1) diazepam 10 mg tablet RxNorm: 017991 Tablet(s) PO TAKE 1 TABLET BY MOUTH THREE TIMES DAILY NEEDED 05/29/20142013 Inactive (Appended: Controlled substance eRx refill - RxReferenceNumber: [id number]|1|0|1) hydrocodone 10 mg-acetaminophen 325 mg tablet RxNorm: 271177 Tablet(s) TAKE 1-2 TABLETS BY MOUTH EVERY 6 HOURS NEEDED FOR PAIN 05/17/2014 06/13/2014 Inactive ( Response to an electronic controlled substance refill request - RxReferenceNumber: [id number]|1|0|1) diazepam 10 mg tablet RxNorm: 113393 Tablet(s) PO TAKE 1 TABLET BY MOUTH THREE TIMES DAILY NEEDED 04/27/20142013 Inactive (Appended: Controlled substance eRx refill - RxReferenceNumber: [id number]|1|0|1) Anucort-HC 25 mg suppository RxNorm: 4377079 1 SUPPOSITORY RTL QDAY PRN NEEDED 04/03/2014 06/01/2014 Inactive metoprolol tartrate 25 mg tablet RxNorm: 102168 1/2 TABLET(S) PO BID TAKE 1/2 TABLET BY MOUTH TWICE DAILY 04/03/201408/2014 Inactive Anucort-HC 25 mg suppository RxNorm: 4810910 1 SUPPOSITORY RTL QDAY PRN NEEDED 04/03/2014 06/01/2014 Inactive Seroquel 100 mg tablet RxNorm: 978700 1 TABLET(S) PO BID 201312/28/2014 Inactive TAKE 1 TABLET BY MOUTH TWICE DAILY Anucort-HC 25 mg suppository RxNorm: 6992478 1 SUPPOSITORY RTL QDAY PRN NEEDED 04/03/2014 06/01/2014 Inactive hydrocodone 10 mg-acetaminophen 325 mg tablet RxNorm: 335197 Tablet(s) TAKE 1-2 TABLETS BY MOUTH EVERY 6 HOURS NEEDED FOR PAIN 03/22/2014 04/20/2014 Inactive ( Response to an electronic controlled substance refill request - RxReferenceNumber: [id number]|1|0|1) Claritin-D 12 Hour 5 mg-120 mg tablet,extended release RxNorm: 3201326 1 Tablet(s ) PO BID 03/22/2014 2014 Inactive diazepam 10 mg tablet RxNorm: 330944 TAKE 1 TABLET BY MOUTH THREE TIMES DAILY NEEDED 03/19/2014 04/16/2014 Inactive (Response to an electronic controlled substance refill request - RxReferenceNumber: [id number]|1|0|1) Lipitor 20 mg tablet RxNorm: 477410 1 TABLET(S) PO DAILY 201312/05/2014 Inactive TAKE ONE TABLET BY MOUTH EVERY NIGHT AT BEDTIME Effexor XR 150 mg capsule,extended release RxNorm: 182772 1 CAPSULE(S) PO BID 03/01/2014 01/24/2015 Inactive TAKE 1 CAPSULE BY MOUTH TWICE DAILY Claritin-D 12 Hour 5 mg-120 mg tablet,extended release RxNorm: 6225373 1 Tablet(s ) PO BID 02/19/2014 03/21/2014 Inactive cyanocobalamin (vit B-12) 1,000 mcg/mL injection solution RxNorm: 745176 Milliliter(s) Inj 02/15/2014 02/15/2014 Inactive hydrocodone 10 mg-acetaminophen 325 mg tablet RxNorm: 131814 1 Tablet(s) PO Q6 PRN TAKE ONE TO TWO TABLETS BY MOUTH EVERY 6 HOURS NEEDED FOR PAIN 01/30/2014 01/30/2014 Inactive (Response to an electronic controlled substance refill request - RxReferenceNumber: [id number]|1|0|1) hydrocodone 10 mg-acetaminophen 325 mg tablet RxNorm: 082271 TAKE 1-2 TABLETS BY MOUTH EVERY 6 HOURS NEEDED FOR PAIN 01/30/2014 02/19/2014 Inactive (Response to an electronic controlled substance refill request - RxReferenceNumber: [id number]| [id number]|1|0|1) cyanocobalamin (vit B-12) 1,000 mcg/mL injection kit RxNorm: 977896 1 Milliliter(s ) Inj 01/15/2014 01/15/2014 Inactive Kenalog 40 mg/mL suspension for injection RxNorm: 7055344 1 Milliliter(s) Inj 01/15/2014 01/15/2014 Inactive Anucort-HC 25 mg suppository RxNorm: 6896062 1 Suppository RTL QDAY PRN as needed 01/15/2014 02/13/2014 Inactive hydrocodone 10 mg-acetaminophen 325 mg tablet RxNorm: 519826 TAKE ONE TO TWO TABLETS BY MOUTH EVERY 6 HOURS NEEDED FOR PAIN 12/29/2013 01/18/2014 Inactive ( Response to an electronic controlled substance refill request - RxReferenceNumber: [id number]|1|0|1) trazodone 100 mg tablet RxNorm: 257750 TAKE 2 TABLETS BY MOUTH EVERY NIGHT AT BEDTIME 12/20/2013 12/14/2014 Inactive mupirocin 2 % topical ointment RxNorm: 886372 1 APPLICATION TOP PRN 12/14/2013 01/09/2015 Inactive cyanocobalamin (vit B-12) 1,000 mcg/mL injection solution RxNorm: 582463 1 Milliliter(s) Inj 12/04/2013 12/04/2013 Inactive Savella 100 mg tablet RxNorm: 268398 1 Tablet(s) PO daily TAKE 1 TABLET BY MOUTH DAILY 11/28/2013 11/05/2016 Inactive Savella 100 mg tablet RxNorm: 776438 Tablet(s) PO TAKE 1 TABLET BY MOUTH DAILY 10/27/2013 11/27/2013 Inactive mupirocin 2 % topical ointment RxNorm: 737003 1 Application TOP PRN 10/17/2013 No Stop Date Active trazodone 100 mg tablet RxNorm: 568552 Tablet(s) PO TAKE 2 TABLETS BY MOUTH EVERY NIGHT AT BEDTIME 09/26/2013 11/05/2016 Inactive cyclobenzaprine 10 mg tablet RxNorm: 502257 Tablet(s) PO TAKE ONE TABLET BY MOUTH THREE TIMES DAILY 09/26/2013 01/07/2015 Inactive diazepam 10 mg tablet RxNorm: 404108 Tablet(s) PO TAKE 1 TABLET BY MOUTH THREE TIMES DAILY NEEDED 08/15/20132013 Inactive (Appended: Controlled substance eRx refill - RxReferenceNumber: [id number]|1|0|1) diazepam 10 mg tablet RxNorm: 290594 1 Tablet(s) PO TID PRN TAKE 1 TABLET BY MOUTH THREE TIMES DAILY NEEDED 08/15/2013 Inactive (Appended: Controlled substance eRx refill - RxReferenceNumber: [id number]|1|0|1) Vitamin B-12 1,000 mcg/mL injection solution RxNorm: 011230 Milliliter(s) Inj 07/24/2013 07/24/2013 Inactive pantoprazole 40 mg tablet,delayed release RxNorm: 347817 Tablet(s) PO TAKE 1 TABLET BY MOUTH EVERY DAY 07/20/201308/08 Inactive hydrocodone 10 mg-acetaminophen 325 mg tablet RxNorm: 204030 1 or 2 Tablet(s) PO Q6 PRN limit 6 per day 06/26/20132013 Inactive (Appended: Controlled substance eRx refill - RxReferenceNumber: [id number]|1|0|1) trazodone 100 mg tablet RxNorm: 666945 Tablet(s) PO TAKE 2 TABLETS BY MOUTH EVERY NIGHT AT BEDTIME 06/26/2013 11/05/2016 Inactive pantoprazole 40 mg tablet,delayed release RxNorm: 309450 Tablet(s) PO TAKE 1 TABLET BY MOUTH EVERY DAY 06/20/201306/05 Inactive prednisone 10 mg tablets in a dose pack RxNorm: 606323 Tablet(s) PO 6-5-4-3-2-1 06/13/2013 06/12/2013 Inactive prednisone 10 mg tablets in a dose pack RxNorm: 956150 Tablet(s) PO UD 6-5-4-3-2- 1 06/13/2013 06/18/2013 Inactive Silvadene 1 % topical cream RxNorm: 079090 1 TOP daily apply thin layer to left knee daily 06/12/2013 06/18/2013 Inactive metoprolol tartrate 25 mg tablet RxNorm: 339082 1/2 Tablet(s) PO BID TAKE 1/2 TABLET BY MOUTH TWICE DAILY 05/19/2013 Inactive Lipitor 20 mg tablet RxNorm: 082570 1 Tablet(s) PO daily 201203/11/2014 Inactive TAKE ONE TABLET BY MOUTH EVERY NIGHT AT BEDTIME Vitamin B-12 1,000 mcg/mL injection solution RxNorm: 868162 1 Milliliter(s) Inj 05/10/2013 05/10/2013 Inactive hydrocodone 10 mg-acetaminophen 325 mg tablet RxNorm: 332314 1 or 2 Tablet(s) PO Q6 PRN limit 6 per day 03/16/2013 No Stop Date Active (Appended: Controlled substance eRx refill - RxReferenceNumber: [id number]|1|0|1) Seroquel 100 mg tablet RxNorm: 071971 1 Tablet(s) PO BID 201203/10/2014 Inactive TAKE 1 TABLET BY MOUTH TWICE DAILY Effexor XR 150 mg capsule,extended release RxNorm: 948101 1 Capsule(s) PO BID 03/16/2013 02/28/2014 Inactive TAKE 1 CAPSULE BY MOUTH TWICE DAILY fluconazole 150 mg tablet RxNorm: 621423 1 Tablet(s) PO daily 03/06/2013 03/12/2013 Inactive Kenalog 40 mg/mL Susp for Injection RxNorm: 1634859 Milliliter(s) Inj 03/06/2013 03/06/2013 Inactive Ventolin HFA 90 mcg/actuation Aerosol Inhaler RxNorm: 0000440 1 or 2 Puff(s) INH Q6 PRN 02/20/2013 03/16/2014 Inactive cyanocobalamin (vitamin B-12) 1,000 mcg/mL Injection RxNorm: 525155 Milliliter(s) Inj 02/20/2013 02/20/2013 Inactive Valium 10 mg tablet RxNorm: 587221 1 Tablet(s) PO Q8 PRN 01/3102/24/2014 Inactive Kenalog 40 mg/mL Susp for Injection RxNorm: 2823447 Milliliter(s) Inj 12/26/2012 12/26/2012 Inactive cyanocobalamin (vitamin B-12) 1,000 mcg/mL Injection RxNorm: 480833 Milliliter(s) Inj 12/21/2012 12/21/2012 Inactive hydrocodone 10 mg-acetaminophen 325 mg tablet RxNorm: 9118722 1 or 2 Tablet(s) PO Q6 PRN limit 6 per day 11/25/20122012 Inactive (Appended: Controlled substance eRx refill - RxReferenceNumber: [id number]|1|0|1) diazepam 10 mg tablet RxNorm: 920348 1 Tablet(s) PO TID PRN 08/15/2013 Inactive TAKE 1 TABLET BY MOUTH THREE TIMES DAILY NEEDED (Appended: Controlled substance eRx refill - RxReferenceNumber: [id number]|1|0|1) diazepam 10 mg tablet RxNorm: 367130 Tablet(s) PO TAKE 1 TABLET BY MOUTH THREE TIMES DAILY NEEDED 11/21/20122013 Inactive (Appended: Controlled substance eRx refill - RxReferenceNumber: [id number]|1|0|1) Vitamin B-12 1,000 mcg/mL Injection RxNorm: 336943 1 Milliliter(s) Inj 11/16/2012 11/16/2012 Inactive hydrocodone 10 mg-acetaminophen 325 mg tablet RxNorm: 7237339 1 or 2 Tablet(s) PO Q6 PRN limit 6 per day 10/24/20122012 Inactive (Appended: Controlled substance eRx refill - RxReferenceNumber: [id number]|1|0|1) hydrocodone 10 mg-acetaminophen 325 mg tablet RxNorm: 2429787 Tablet(s) PO limit 5x days 10/24/2012 10/23/2012 Inactive (Appended: Controlled substance eRx refill - RxReferenceNumber: [id number]|1|0|1) Savella 100 mg tablet RxNorm: 748589 Tablet(s) PO TAKE 1 TABLET BY MOUTH DAILY 10/14/2012 12/05/2014 Inactive Tubersol 5 tub. unit/0.1 mL Intradermal RxNorm: 490630 Milliliter(s) IDrm 09/26/2012 09/26/2012 Inactive hydrocodone 10 mg-acetaminophen 325 mg tablet RxNorm: 8948405 1 Tablet(s) PO Q4 PRN q 4 hr prn limit 5 per day 09/19/2012 No Stop Date Active (Appended: Controlled substance eRx refill - RxReferenceNumber: [id number]|1|0|1) hydrocodone 10 mg-acetaminophen 325 mg tablet RxNorm: 4198042 Tablet(s) PO TAKE 1 TABLET BY MOUTH FOUR TIMES DAILY 09/16/2012 10/23/2012 Inactive (Appended: Controlled substance eRx refill - RxReferenceNumber: [id number]|1|0|1) cyclobenzaprine 10 mg tablet RxNorm: 613549 Tablet(s) PO TAKE ONE TABLET BY MOUTH THREE TIMES DAILY 09/16/2012 09/25/2013 Inactive hydrocodone 10 mg-acetaminophen 325 mg tablet RxNorm: 8510382 1 Tablet(s) PO Q4 PRN q 4 hr prn limit 5 per day 09/14/2012 09/19/2012 Inactive (Appended: Controlled substance eRx refill - RxReferenceNumber: [id number]|1|0|1) cyanocobalamin (vitamin B-12) 1,000 mcg/mL Injection RxNorm: 002207 1 Milliliter(s ) Inj 09/12/2012 09/12/2012 Inactive cyclobenzaprine 10 mg tablet RxNorm: 748978 Tablet(s) PO TAKE ONE TABLET BY MOUTH THREE TIMES DAILY 09/02/2012 09/15/2012 Inactive hydrocodone 10 mg-acetaminophen 325 mg tablet RxNorm: 5770871 1 Tablet(s) PO QID TAKE 1 TABLET BY MOUTH FOUR TIMES DAILY 08/23/2012 09/13/2012 Inactive (Appended: Controlled substance eRx refill - RxReferenceNumber: [id number]|1|0|1) Kenalog 40 mg/mL Susp for Injection RxNorm: 2442120 1 Milliliter(s) Inj 08/11/2012 08/11/2012 Inactive Vitamin B-12 1,000 mcg/mL Injection RxNorm: 827355 1 Milliliter(s) Inj 08/11/2012 08/11/2012 Inactive Zithromax 250 mg tablet RxNorm: 735316 Tablet(s) PO 07/21/2012 09/14/2012 Inactive please give z lauro cefdinir 300 mg capsule RxNorm: 168226 1 Capsule(s) PO BID 07/20/2012 Inactive cefdinir 300 mg capsule RxNorm: 605235 1 Capsule(s) PO BID 07/27/2012 Inactive diazepam 10 mg tablet RxNorm: 534664 1 Tablet(s) PO TID PRN 12/201211/22/2012 Inactive TAKE 1 TABLET BY MOUTH THREE TIMES DAILY NEEDED (Appended: Controlled substance eRx refill - RxReferenceNumber: [id number]|1|0|1) Vitamin B-12 1,000 mcg/mL Injection RxNorm: 075160 1 Milliliter(s) Inj 07/13/2012 07/13/2012 Inactive pantoprazole 40 mg tablet,delayed release RxNorm: 755626 1 Tablet(s) PO daily 06/14/2012 06/13/2012 Inactive pantoprazole 40 mg tablet,delayed release RxNorm: 204414 1 Tablet(s) PO daily 06/14/2012 06/19/2013 Inactive trazodone 100 mg tablet RxNorm: 240316 Tablet(s) PO TAKE 2 TABLETS BY MOUTH EVERY NIGHT AT BEDTIME 06/06/2012 11/05/2016 Inactive hydrocodone 10 mg-acetaminophen 325 mg tablet RxNorm: 6808846 Tablet(s) PO TAKE 1 TABLET BY MOUTH FOUR TIMES DAILY 05/24/2012 08/23/2012 Inactive (Appended: Controlled substance eRx refill - RxReferenceNumber: [id number]|1|0|1) Symbicort 160 mcg-4.5 mcg/actuation HFA Aerosol Inhaler RxNorm: 2045196 1 INH daily 05/24/2012 05/23/2012 Inactive this is an increase in dosing Symbicort 160 mcg-4.5 mcg/actuation HFA Aerosol Inhaler RxNorm: 5973498 1 INH daily 05/24/2012 06/17/2013 Inactive this is an increase in dosing Ventolin HFA 90 mcg/actuation Aerosol Inhaler RxNorm: 548314 1 or 2 Puff(s) INH Q6 PRN 05/24/2012 05/23/2012 Inactive Ventolin HFA 90 mcg/actuation Aerosol Inhaler RxNorm: 836862 1 or 2 Puff(s) INH Q6 PRN 05/24/2012 02/19/2013 Inactive metoprolol tartrate 25 mg tablet RxNorm: 443591 Tablet(s) PO TAKE 1/2 TABLET BY MOUTH TWICE DAILY 05/24/2012 05/18/2013 Inactive hydrocodone-acetaminophen 10 mg-325 mg tablet RxNorm: 1268354 Tablet(s) PO TAKE 1 TABLET BY MOUTH FOUR TIMES DAILY 05/17/2012 05/17/2012 Inactive (Appended: Controlled substance eRx refill - RxReferenceNumber: [id number]|1|0|1) diazepam 10 mg tablet RxNorm: 977445 Tablet(s) PO 05/03/2012 07/13/2012 Inactive TAKE 1 TABLET BY MOUTH THREE TIMES DAILY NEEDED (Appended: Controlled substance eRx refill - RxReferenceNumber: [id number]|1|0|1) metoprolol tartrate 25 mg tablet RxNorm: 437140 Tablet(s) PO 11/05/2016 Inactive TAKE 1/2 TABLET BY MOUTH TWICE DAILY hydrocodone-acetaminophen 10 mg-325 mg tablet RxNorm: 3182941 Tablet(s) PO 04/11/2012 05/17/2012 Inactive TAKE 1 TABLET BY MOUTH FOUR TIMES DAILY (Appended: Controlled substance eRx refill - RxReferenceNumber: [id number]|1|0|1) ProAir HFA 90 mcg/actuation Aerosol Inhaler RxNorm: 468537 2 INH Q4 PRN 04/05/2012 04/29/2013 Inactive Symbicort 80 mcg-4.5 mcg/actuation HFA Aerosol Inhaler RxNorm: 3009706 2 INH BID 04/05/2012 04/04/2012 Inactive Symbicort 80 mcg-4.5 mcg/actuation HFA Aerosol Inhaler RxNorm: 9150432 2 INH BID 04/05/2012 05/23/2012 Inactive ProAir HFA 90 mcg/actuation Aerosol Inhaler RxNorm: 295739 2 INH Q4 PRN 04/05/2012 04/04/2012 Inactive diazepam 10 mg tablet RxNorm: 716086 Tablet(s) PO 03/17/2012 05/03/2012 Inactive TAKE 1 TABLET BY MOUTH THREE TIMES DAILY NEEDED (Appended: Controlled substance eRx refill - RxReferenceNumber: [id number]|1|0|1) Effexor XR 150 mg capsule,extended release RxNorm: 295139 Capsule(s) PO 03/13/2012 03/15/2013 Inactive TAKE 1 CAPSULE BY MOUTH TWICE DAILY fluconazole 150 mg tablet RxNorm: 969961 1 Tablet(s) PO daily 03/11/2012 03/17/2012 Inactive Lipitor 20 mg tablet RxNorm: 814947 Tablet(s) PO 02/25/2012 03/20/2013 Inactive TAKE ONE TABLET BY MOUTH EVERY NIGHT AT BEDTIME Seroquel 100 mg tablet RxNorm: 342170 1 Tablet(s) PO BID 201102/18/2013 Inactive TAKE 1 TABLET BY MOUTH TWICE DAILY hydrocodone-acetaminophen 10 mg-325 mg tablet RxNorm: 1648947 Tablet(s) PO 02/25/2012 04/11/2012 Inactive TAKE 1 TABLET BY MOUTH FOUR TIMES DAILY . (Appended : Controlled substance eRx refill - RxReferenceNumber: [id number]|1|0|1) Seroquel 100 mg tablet RxNorm: 277464 1 Tablet(s) PO BID 201102/24/2012 Inactive TAKE 1 TABLET BY MOUTH TWICE DAILY Nexium 40 mg capsule,delayed release RxNorm: 700022 1 Capsule(s) PO daily 02/16/2012 06/13/2012 Inactive Effexor XR 150 mg capsule,extended release RxNorm: 462589 Capsule(s) PO 01/14/2012 11/05/2016 Inactive TAKE 1 CAPSULE BY MOUTH TWICE DAILY Kenalog 40 mg/mL Susp for Injection RxNorm: 4280996 1 Milliliter(s) Inj 01/13/2012 01/13/2012 Inactive Vitamin B-12 1,000 mcg/mL Injection RxNorm: 731072 Milliliter(s) Inj 12/21/2011 12/21/2011 Inactive hydrocodone-acetaminophen 10 mg-325 mg tablet RxNorm: 4502484 Tablet(s) PO 12/15/2011 02/25/2012 Inactive TAKE 1 TABLET BY MOUTH FOUR TIMES DAILY (Appended: Controlled substance eRx refill - RxReferenceNumber: [id number]|1|0|1) diazepam 10 mg tablet RxNorm: 994244 Tablet(s) PO 12/15/2011 03/17/2012 Inactive TAKE 1 TABLET BY MOUTH THREE TIMES DAILY NEEDED (Appended: Controlled substance eRx refill - RxReferenceNumber: [id number]|1|0|1) diazepam 10 mg Tab RxNorm: 386414 1 Tablet(s) PO daily 201112/15/2011 Inactive TAKE 1 TABLET BY MOUTH THREE TIMES DAILY (Appended: Controlled substance eRx refill - RxReferenceNumber: [id number]|1|0|1) hydrocodone-acetaminophen 10 mg-325 mg Tab RxNorm: 2523412 1 Tablet(s) PO QID 12/14/2011 12/15/2011 Inactive TAKE 1 TABLET BY MOUTH FOUR TIMES DAILY (Appended: Controlled substance eRx refill - RxReferenceNumber: [id number]|1|0|1) Seroquel 100 mg tablet RxNorm: 630637 Tablet(s) PO 11/27/2011 03/15/2013 Inactive TAKE 1 TABLET BY MOUTH TWICE DAILY hydrocodone-acetaminophen 10 mg-325 mg Tab RxNorm: 7208712 1 Tablet(s) PO QID 11/27/2011 12/13/2011 Inactive TAKE 1 TABLET BY MOUTH FOUR TIMES DAILY (Appended: Controlled substance eRx refill - RxReferenceNumber: [id number]|1|0|1) Seroquel 100 mg Tab RxNorm: 259268 1 Tablet(s) PO BID 201111/26/2011 Inactive Seroquel 100 mg tablet RxNorm: 616671 Tablet(s) PO 11/27/2011 02/16/2012 Inactive TAKE 1 TABLET BY MOUTH TWICE DAILY Nexium 40 mg capsule,delayed release RxNorm: 451969 1 Capsule(s) PO daily 11/16/2011 02/15/2012 Inactive cyanocobalamin (vitamin B-12) 1,000 mcg/mL Injection RxNorm: 189566 1 Milliliter(s ) Inj 10/30/2011 10/30/2011 Inactive hydrocodone-acetaminophen 10 mg-325 mg Tab RxNorm: 3137232 1 Tablet(s) PO QID 10/13/2011 11/23/2011 Inactive TAKE 1 TABLET BY MOUTH FOUR TIMES DAILY (Appended: Controlled substance eRx refill - RxReferenceNumber: [id number]|1|0|1) Effexor XR 150 mg capsule,extended release RxNorm: 816799 1 Capsule(s) PO BID 10/12/2011 01/09/2012 Inactive Fish Oil 1,000 mg Cap RxNorm: 1 Capsule(s) PO QID 10/02/2011 No Stop Date Active Vitamin B-12 1,000 mcg/mL Injection RxNorm: 186829 Milliliter(s) Inj 10/02/2011 10/02/2011 Inactive Kenalog 40 mg/mL Susp for Injection RxNorm: 3983807 Milliliter(s) Inj 10/02/2011 10/02/2011 Inactive diazepam 10 mg Tab RxNorm: 768799 1 Tablet(s) PO daily 201112/13/2011 Inactive TAKE 1 TABLET BY MOUTH THREE TIMES DAILY (Appended: Controlled substance eRx refill - RxReferenceNumber: [id number]|1|0|1) Vitamin B-12 1,000 mcg/mL Injection RxNorm: 345120 Milliliter(s) Inj 09/01/2011 09/01/2011 Inactive hydrocodone-acetaminophen 10 mg-325 mg Tab RxNorm: 8631986 1 Tablet(s) PO QID 08/25/2011 10/05/2011 Inactive TAKE 1 TABLET BY MOUTH FOUR TIMES DAILY (Appended: Controlled substance eRx refill - RxReferenceNumber: [id number]|1|0|1) diazepam 10 mg Tab RxNorm: 660820 Tablet(s) PO 08/10/2011 No Stop Date Active TAKE 1 TABLET BY MOUTH THREE TIMES DAILY (Appended: Controlled substance eRx refill - RxReferenceNumber: [id number]|1|0|1) Vitamin B-12 1,000 mcg/mL Injection RxNorm: 744384 Milliliter(s) Inj 08/03/2011 08/03/2011 Inactive fluticasone 50 mcg/actuation Nasal [place], Susp RxNorm: 2516500 2 [place] NASAL BID 07/27/2011 08/19/2012 Inactive hydrocodone-acetaminophen 10 mg-325 mg Tab RxNorm: 6709017 Tablet(s) PO 07/09/2011 08/24/2011 Inactive TAKE 1 TABLET BY MOUTH FOUR TIMES DAILY (Appended: Controlled substance eRx refill - RxReferenceNumber: [id number]|1|0|1) diazepam 10 mg Tab RxNorm: 602863 Tablet(s) PO 07/09/2011 08/09/2011 Inactive TAKE 1 TABLET BY MOUTH THREE TIMES DAILY (Appended: Controlled substance eRx refill - RxReferenceNumber: [id number]|1|0|1) diazepam 10 mg Tab RxNorm: 580766 Tablet(s) PO 07/08/2011 07/08/2011 Inactive TAKE 1 TABLET BY MOUTH THREE TIMES DAILY (Appended: Controlled substance eRx refill - RxReferenceNumber: [id number]|1|0|1) hydrocodone-acetaminophen 10 mg-325 mg Tab RxNorm: 9198233 Tablet(s) PO 07/08/2011 07/08/2011 Inactive TAKE 1 TABLET BY MOUTH FOUR TIMES DAILY (Appended: Controlled substance eRx refill - RxReferenceNumber: [id number]|1|0|1) cyclobenzaprine 10 mg tablet RxNorm: 023484 Tablet(s) PO 201109/01/2012 Inactive TAKE ONE TABLET BY MOUTH THREE TIMES DAILY Lipitor 40 mg Tab RxNorm: 343131 1 Tablet(s) PO daily 201106/16/2011 Inactive Lipitor 40 mg Tab RxNorm: 237327 1 Tablet(s) PO daily 201106/10/2012 Inactive trazodone 100 mg tablet RxNorm: 218247 Tablet(s) PO 06/02/2011 06/05/2012 Inactive TAKE 2 TABLETS BY MOUTH EVERY NIGHT AT BEDTIME diazepam 10 mg Tab RxNorm: 814942 Tablet(s) PO 05/28/2011 05/29/2011 Inactive TAKE 1 TABLET BY MOUTH THREE TIMES DAILY (Appended: Controlled substance eRx refill - RxReferenceNumber: [id number]|1|0|1) diazepam 10 mg Tab RxNorm: 019187 Tablet(s) PO 05/28/2011 07/08/2011 Inactive TAKE 1 TABLET BY MOUTH THREE TIMES DAILY (Appended: Controlled substance eRx refill - RxReferenceNumber: [id number]|1|0|1) hydrocodone-acetaminophen 10 mg-325 mg Tab RxNorm: 9371221 1 Tablet(s) PO QID 05/26/2011 07/08/2011 Inactive metoprolol tartrate 25 mg tablet RxNorm: 344283 Tablet(s) PO 04/10/2012 Inactive TAKE 1/2 TABLET BY MOUTH TWICE DAILY Savella 100 mg tablet RxNorm: 852574 Tablet(s) PO 05/14/2011 10/13/2012 Inactive TAKE 1 TABLET BY MOUTH DAILY Influenza Virus Vaccine 0.5 mL RxNorm: IM 02/23/2011 02/23/2011 Inactive B12 1000 mcg RxNorm: IM 02/23/20112010 Inactive hydrocodone-acetaminophen 10 mg-325 mg Tab RxNorm: 7163547 1 Tablet(s) PO QID 01/29/2011 01/28/2011 Inactive Restasis 0.05 % eye drops in a dropperette RxNorm: 728241 1 OPH BID No Start Date Active vitamin A-vit C-vit E-zinc-Se Tab RxNorm: 1 Tablet(s) PO daily No Start Date Active garlic extract Oral RxNorm: Oral No Start Date Active Acidophilus Tab RxNorm : 2 Tablet(s) PO QHS No Start Date Active Cranberry Concentrate Cap RxNorm: 1 Capsule(s) PO BID No Start Date Active Xopenex 1.25 mg/3 mL Neb Solution RxNorm: 156039 1 Milliliter(s) INH TID No Start Date Active niacin ER 500 mg Tab RxNorm: 345885 2 Tablet(s) PO HS No Start Date Active SenokotXTRA 17.2 mg Tab RxNorm: 6868092 Oral No Start Date Active Lotemax 0.5 % eye ointment RxNorm: 3971087 1 OPH QHS No Start Date Active Gaviscon Extra Strength Oral RxNorm: Oral No Start Date Active melatonin 3 mg Tab RxNorm: 739016 1 Tablet(s) PO QHS No Start Date Active Voltaren 1 % Topical Gel RxNorm: 781092 4 Gram(s) TOP QID No Start Date Active Vitamin D 1,000 unit Cap RxNorm: 315034 1 Capsule(s) PO QHS No Start Date Active Mucinex DM 30 mg-600 mg 12 hr Tab RxNorm: 0829005 1 Tablet(s) PO BID No Start Date Active calcium citrate 200 mg (950 mg) Tab RxNorm: 283133 1 Tablet(s) PO QID No Start Date Active valerian 530 mg Cap RxNorm: 2 Capsule(s) PO QHS No Start Date Active Anucort-HC 25 mg Suppository RxNorm: 1719042 1 Suppository RTL QDAY PRN No Start Date 01/14/2014 Inactive Nexium 40 mg Capsule, delayed release RxNorm: 023201 1 Capsule(s) PO daily No Start Date 11/15/2011 Inactive Lipitor 20 mg tablet RxNorm: 321878 1 Tablet(s) PO QHS No Start Date 02/25/2012 Inactive mupirocin 2 % topical ointment RxNorm: 120576 1 Application TOP PRN No Start Date 10/16/2013 Inactive fluconazole 150 mg tablet RxNorm: 235674 1 Tablet(s) PO daily No Start Date 03/10/2012 Inactive Fish Oil 1,000 mg Cap RxNorm: 1 Capsule(s) PO TID No Start Date 10/01/2011 Inactive hydrocodone-acetaminophen 10 mg-325 mg Tab RxNorm: 8303042 1 Tablet(s) PO QID No Start Date 05/25/2011 Inactive Zithromax 250 mg tablet RxNorm: 877510 Tablet(s) PO No Start Date 07/20/2012 Inactive please give z lauro prednisone 10 mg tablet RxNorm: 100321 Tablet(s) PO taper. 6-5-4-3-2-1 # 21 No Start Date 09/16/2017 Inactive fluticasone 50 mcg/actuation Nasal [place], Susp RxNorm: 1571193 2 [place] NASAL BID No Start Date 07/26/2011 Inactive Seroquel 100 mg Tab RxNorm: 674080 1 Tablet(s) PO BID No Start Date 11/26/2011 Inactive nystatin 100,000 unit/gram topical powder RxNorm: 899667 1 Application TOP QID until healed No Start Date 10/26/2016 Inactive Savella 100 mg Tab RxNorm: 641481 1 Tablet(s) PO daily No Start Date 05/13/2011 Inactive cyclobenzaprine 10 mg Tab RxNorm: 992038 1 Tablet(s) PO TID No Start Date 07/05/2011 Inactive metoprolol tartrate 25 mg Tab RxNorm: 796493 1/2 Tablet(s) PO BID No Start Date 05/25/2011 Inactive trazodone 100 mg Tab RxNorm: 899394 2 Tablet(s) PO QHS No Start Date 06/01/2011 Inactive Zithromax Z-Lauro 250 mg tablet RxNorm: 739669 1 Tablet(s) PO UD No Start Date 07/11/2015 Inactive z lauro Effexor XR 150 mg 24 hr Cap RxNorm: 389051 1 Capsule(s) PO BID No Start Date 10/11/2011 Inactive diazepam 10 mg Tab RxNorm: 947349 1 Tablet(s) PO TID No Start Date 05/28/2011 Inactive tramadol 50 mg tablet RxNorm: 202382 1-2 Tablet(s) PO Q6 as needed No Start Date 05/28/2015 Inactive Medication Administered Medication Codes Instructions Start Date Status cyanocobalamin (vit B-12) 1,000 mcg/mL injection solution RxNorm: 075080 1Milliliter 03/10/2018 No longer Active cyanocobalamin (vit B-12) 1,000 mcg/mL injection solution RxNorm: 827127 1Milliliter 10/19/2017 No longer Active cyanocobalamin (vit B-12) 1,000 mcg/mL injection solution RxNorm: 380072 1Milliliter 08/19/2017 No longer Active cyanocobalamin (vit B-12) 1,000 mcg/mL injection solution RxNorm: 016761 1Milliliter 07/06/2017 No longer Active cyanocobalamin (vit B-12) 1,000 mcg/mL injection solution RxNorm: 101344 1Milliliter 04/27/2017 No longer Active cyanocobalamin (vit B-12) 1,000 mcg/mL injection solution RxNorm: 592147 1Milliliter 11/17/2016 No longer Active cyanocobalamin (vit B-12) 1,000 mcg/mL injection solution RxNorm: 602925 1Milliliter 10/12/2016 No longer Active cyanocobalamin (vit B-12) 1,000 mcg/mL injection solution RxNorm: 905606 1Milliliter 09/11/2016 No longer Active cyanocobalamin (vit B-12) 1,000 mcg/mL injection solution RxNorm: 518142 Milliliter 07/03/2016 No longer Active cyanocobalamin (vit B-12) 1,000 mcg/mL injection solution RxNorm: 055197 1Milliliter 04/20/2016 No longer Active cyanocobalamin (vit B-12) 1,000 mcg/mL injection solution RxNorm: 712144 Milliliter 02/13/2016 No longer Active cyanocobalamin (vit B-12) 1,000 mcg/mL injection solution RxNorm: 678914 1Milliliter 12/02/2015 No longer Active cyanocobalamin (vit B-12) 1,000 mcg/mL injection solution RxNorm: 274565 1Milliliter 10/29/2015 No longer Active cyanocobalamin (vit B-12) 1,000 mcg/mL injection solution RxNorm: 859889 Milliliter 06/10/2015 No longer Active cyanocobalamin (vit B-12) 1,000 mcg/mL injection solution RxNorm: 764855 Milliliter 02/15/2014 No longer Active cyanocobalamin (vit B-12) 1,000 mcg/mL injection kit RxNorm : 012296 1Milliliter 01/15/2014 No longer Active Kenalog 40 mg/mL suspension for injection RxNorm: 2178250 1Milliliter 01/15/2014 No longer Active cyanocobalamin (vit B-12) 1,000 mcg/mL injection solution RxNorm: 755941 1Milliliter 12/04/2013 No longer Active Vitamin B-12 1,000 mcg/mL injection solution RxNorm: 255720 Milliliter 07/24/2013 No longer Active Vitamin B-12 1,000 mcg/mL injection solution RxNorm: 347369 1Milliliter 05/10/2013 No longer Active Kenalog 40 mg/mL Susp for Injection RxNorm: 9863900 Milliliter 03/06/2013 No longer Active cyanocobalamin (vitamin B-12) 1,000 mcg/mL Injection RxNorm : 227397 Milliliter 02/20/2013 No longer Active Kenalog 40 mg/mL Susp for Injection RxNorm: 5375375 Milliliter 12/26/2012 No longer Active cyanocobalamin (vitamin B-12) 1,000 mcg/mL Injection RxNorm : 094850 Milliliter 12/21/2012 No longer Active Vitamin B-12 1,000 mcg/mL Injection RxNorm: 448087 1Milliliter 11/16/2012 No longer Active Tubersol 5 tub. unit/0.1 mL Intradermal RxNorm: 875627 Milliliter 09/26/2012 No longer Active cyanocobalamin (vitamin B-12) 1,000 mcg/mL Injection RxNorm : 459535 1Milliliter 09/12/2012 No longer Active Kenalog 40 mg/mL Susp for Injection RxNorm: 6417287 1Milliliter 08/11/2012 No longer Active Vitamin B-12 1,000 mcg/mL Injection RxNorm: 462570 1Milliliter 08/11/2012 No longer Active Vitamin B-12 1,000 mcg/mL Injection RxNorm: 312243 1Milliliter 07/13/2012 No longer Active Kenalog 40 mg/mL Susp for Injection RxNorm: 2200185 1Milliliter 01/13/2012 No longer Active Vitamin B-12 1,000 mcg/mL Injection RxNorm: 209675 Milliliter 12/21/2011 No longer Active cyanocobalamin (vitamin B-12) 1,000 mcg/mL Injection RxNorm : 870477 1Milliliter 10/30/2011 No longer Active Vitamin B-12 1,000 mcg/mL Injection RxNorm: 985653 Milliliter 10/02/2011 No longer Active Kenalog 40 mg/mL Susp for Injection RxNorm: 9360021 Milliliter 10/02/2011 No longer Active Vitamin B-12 1,000 mcg/mL Injection RxNorm: 315285 Milliliter 09/01/2011 No longer Active Vitamin B-12 1,000 mcg/mL Injection RxNorm: 545041 Milliliter 08/03/2011 No longer Active B12 1000 [...] 2011 Weight gain ICD-9: 783.1 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 Reason For Visit Reason [...] Item Item Code Result Date Comp Metabolic Swy617 NA 138 mEq/L 09/20/2017 Comp Metabolic Agc669 K 4.1 mEq/L 09/20/2017 Comp Metabolic Gyj702 CL 101 mEq/L 09/20/2017 Comp Metabolic Fzm083 CO2 25.0 mEq/L 09/20/2017 Comp Metabolic Khb863 ANION GAP 16 09/20/2017 Comp Metabolic Qvp541 GLUCOSE 105 mg/dL 09/20/2017 Comp Metabolic Afp501 Creat 0.8 mg/dL 09/20/2017 Comp Metabolic Rcy915 eGFR 86 ml/min/1.73m2 09/20/2017 Comp Metabolic Zkm864 BUN 24 mg/dL 09/20/2017 Comp Metabolic Yyj296 B/C Ratio 31.6 Ratio 09/20/2017 Comp Metabolic Dnr185 CALCIUM 10.0 mg/dL 09/20/2017 Comp Metabolic Xgh229 ALK PHOS 63 U/L 09/20/2017 Comp Metabolic Agg677 AST(SGOT) 28 U/L 09/20/2017 Comp Metabolic Ugd152 ALT(SGPT) 34 U/L 09/20/2017 Comp Metabolic Cmb010 BILI T 0.3 mg/dL 09/20/2017 Comp Metabolic Bif699 ALBUMIN 4.8 g/dL 09/20/2017 Comp Metabolic Hdm813 TPRO 7.2 g/dL 09/20/2017 Comp Metabolic Sxd872 GLOB 2.4 g/dL 09/20/2017 Comp Metabolic Roe827 A/G Ratio 2.0 Ratio 09/20/2017 Comp Metabolic Qhl152 Osmo 280 mOsmo 09/20/2017 Urine Culture Ucult Preliminary NO Growth Day 1 09/20/2017 Urine Culture Ucult Complete NO Growth Day 2 09/20/2017 Vitamin D 25 Oh [id number] VITAMIN D, 25 HYDROXY 46.43 ng/mL Comp Metabolic Edh807 NA 143 mEq/L 08/25/2017 Comp Metabolic Cvc871 K 4.1 mEq/L 08/25/2017 Comp Metabolic Kuf782 CL 102 mEq/L 08/25/2017 Comp Metabolic Jfz059 CO2 33.0 mEq/L 08/25/2017 Comp Metabolic Bet270 ANION GAP 12 08/25/2017 Comp Metabolic Glt193 GLUCOSE 99 mg/dL 08/25/2017 Comp Metabolic Tnx458 Creat 0.8 mg/dL 08/25/2017 Comp Metabolic Rpo925 eGFR 86 ml/min/1.73m2 08/25/2017 Comp Metabolic Fun255 BUN 19 mg/dL 08/25/2017 Comp Metabolic Fhw426 B/C Ratio 25.0 Ratio 08/25/2017 Comp Metabolic Czr000 CALCIUM 9.5 mg/dL 08/25/2017 Comp Metabolic Ojy120 ALK PHOS 63 U/L 08/25/2017 Comp Metabolic Wgm030 AST(SGOT) 17 U/L 08/25/2017 Comp Metabolic Vlp026 ALT(SGPT) 20 U/L 08/25/2017 Comp Metabolic Wms505 BILI T 0.3 mg/dL 08/25/2017 Comp Metabolic Akx432 ALBUMIN 4.5 g/dL 08/25/2017 Comp Metabolic Ysr941 TPRO 6.6 g/dL 08/25/2017 Comp Metabolic Tiu712 GLOB 2.1 g/dL 08/25/2017 Comp Metabolic Jid603 A/G Ratio 2.1 Ratio 08/25/2017 Comp Metabolic Zvd502 Osmo 287 mOsmo 08/25/2017 B12 Dda652 B12 904.00 pg/ml 08/25/2017 Tsh Ord6 TSH [...] 32.3 pg 08/25/2017 Cbc With Differential Ord2 [place]% 7.5 % 08/25/2017 Cbc With Differential Ord2 [...] 3.65 K/ul 08/25/2017 Cbc With Differential Ord2 [place] ABS# 0.6 K/ul 08/25/2017 Cbc With Differential Ord2 Eos ABS# 0.1 K/ul 08/25/2017 Cbc With Differential Ord2 Baso ABS# 0.0 K/ul 08/25/2017 Tsh Ord6 hTSH II 1.18 uIU/mL 10/12/2016 Comp Metabolic Ubx841 NA 139 mEq/L 10/12/2016 Comp Metabolic Fmf022 K 3.5 mEq/L 10/12/2016 Comp Metabolic Nmo765 CL 102 mEq/L 10/12/2016 Comp Metabolic Psw936 CO2 25.0 mEq/L 10/12/2016 Comp Metabolic Zas020 ANION GAP 16 10/12/2016 Comp Metabolic Uoz841 GLUCOSE 84 mg/dL 10/12/2016 Comp Metabolic Dgm170 Creat 0.6 mg/dL 10/12/2016 Comp Metabolic Xvc688 eGFR 105 ml/min/1.73m2 10/12/2016 Comp Metabolic Nuv894 BUN 12 mg/dL 10/12/2016 Comp Metabolic Yus947 B/C Ratio 18.8 Ratio 10/12/2016 Comp Metabolic Isp173 CALCIUM 9.2 mg/dL 10/12/2016 Comp Metabolic Hpb965 ALK PHOS 59 U/L 10/12/2016 Comp Metabolic Nfv839 AST(SGOT) 21 U/L 10/12/2016 Comp Metabolic Uuc396 ALT(SGPT) 27 U/L 10/12/2016 Comp Metabolic Pco204 BILI T 0.2 mg/dL 10/12/2016 Comp Metabolic Ckl343 ALBUMIN 4.4 g/dL 10/12/2016 Comp Metabolic Flu013 TPRO 6.7 g/dL 10/12/2016 Comp Metabolic Kic386 GLOB 2.3 g/dL 10/12/2016 Comp Metabolic Whr245 A/G Ratio 1.9 Ratio 10/12/2016 Comp Metabolic Paf542 Osmo 276 mOsmo 10/12/2016 Cbc With Differential [...] 32.7 pg 10/12/2016 Cbc With Differential Ord2 [place]% 8.0 % 10/12/2016 Cbc With Differential Ord2 [...] 3.12 K/ul 10/12/2016 Cbc With Differential Ord2 [place] ABS# 0.8 K/ul 10/12/2016 Cbc With Differential Ord2 Eos ABS# 0.1 K/ul 10/12/2016 Cbc With Differential Ord2 Baso ABS# 0.0 K/ul 10/12/2016 Lipid Ord30 CHOL 194 mg/dL 10/12/2016 Lipid Ord30 HDL 76.0 mg/dl 10/12/2016 Lipid Ord30 TRIG 159 mg/dL 10/12/2016 Lipid Ord30 LDL 86 mg/dL 10/12/2016 Lipid Ord30 C/HDL 2.6 Ratio 10/12/2016 Comp Metabolic Iez960 NA 139 mEq/L 09/11/2016 Comp Metabolic Ige413 K 3.6 mEq/L 09/11/2016 Comp Metabolic Qmj898 CL 102 mEq/L 09/11/2016 Comp Metabolic Cpk607 CO2 26.0 mEq/L 09/11/2016 Comp Metabolic Cxh297 ANION GAP 15 09/11/2016 Comp Metabolic Zie418 GLUCOSE 90 mg/dL 09/11/2016 Comp Metabolic Kpz926 Creat 0.6 mg/dL 09/11/2016 Comp Metabolic Ski364 eGFR 111 ml/min/1.73m2 09/11/2016 Comp Metabolic Lxc022 BUN 14 mg/dL 09/11/2016 Comp Metabolic Yxz111 B/C Ratio 23.0 Ratio 09/11/2016 Comp Metabolic Hdd029 CALCIUM 9.0 mg/dL 09/11/2016 Comp Metabolic Omz034 ALK PHOS 56 U/L 09/11/2016 Comp Metabolic Slj043 AST(SGOT) 21 U/L 09/11/2016 Comp Metabolic Jna441 ALT(SGPT) 17 U/L 09/11/2016 Comp Metabolic Ibf191 BILI T 0.2 mg/dL 09/11/2016 Comp Metabolic Kad820 ALBUMIN 4.1 g/dL 09/11/2016 Comp Metabolic Fjl105 TPRO 6.5 g/dL 09/11/2016 Comp Metabolic Zdf151 GLOB 2.4 g/dL 09/11/2016 Comp Metabolic Bqv127 A/G Ratio 1.7 Ratio 09/11/2016 Comp Metabolic Jxp631 Osmo 278 mOsmo 09/11/2016 Tsh Ord6 hTSH [...] 33.0 pg 09/11/2016 Cbc With Differential Ord2 [place]% 8.6 % 09/11/2016 Cbc With Differential Ord2 [...] 3.35 K/ul 09/11/2016 Cbc With Differential Ord2 [place] ABS# 1.0 K/ul 09/11/2016 Cbc With Differential Ord2 Eos ABS# 0.1 K/ul 09/11/2016 Cbc With Differential Ord2 Baso ABS# 0.0 K/ul 09/11/2016 Lipid Ord30 CHOL 168 mg/dL 09/11/2016 Lipid Ord30 HDL 74.0 mg/dl 09/11/2016 Lipid Ord30 TRIG 167 mg/dL 09/11/2016 Lipid Ord30 LDL 61 mg/dL 09/11/2016 Lipid Ord30 C/HDL 2.3 Ratio 09/11/2016 B12 Naz714 B12 474.00 pg/ml 09/11/2016 B12 Lhq484 B12 827.00 pg/ml 03/02/2016 Cbc With Differential [...] 34.0 pg 02/28/2016 Cbc With Differential Ord2 [place]% 5.4 % 02/28/2016 Cbc With Differential Ord2 [...] 2.08 K/ul 02/28/2016 Cbc With Differential Ord2 [place] ABS# 0.3 K/ul 02/28/2016 Cbc With Differential Ord2 Eos ABS# 0.1 K/ul 02/28/2016 Cbc With Differential Ord2 Baso ABS# 0.0 K/ul 02/28/2016 Sed Rate Ord21 ESR 5 mm/hr 02/28/2016 C-Reactive Protein Qnt Crqnt CRP 0.1 mg/dl 02/28/2016 Comp Metabolic Fdo441 NA 136 mEq/L 02/28/2016 Comp Metabolic Gsd583 K 4.0 mEq/L 02/28/2016 Comp Metabolic Zjt489 CL 103 mEq/L 02/28/2016 Comp Metabolic Sad076 CO2 27.0 mEq/L 02/28/2016 Comp Metabolic Mou275 ANION GAP 10 02/28/2016 Comp Metabolic Ojs906 GLUCOSE 138 mg/dL 02/28/2016 Comp Metabolic Hlq224 Creat 0.6 mg/dL 02/28/2016 Comp Metabolic Qen814 eGFR 120 ml/min/1.73m2 02/28/2016 Comp Metabolic Fww438 BUN 15 mg/dL 02/28/2016 Comp Metabolic Uxg372 B/C Ratio 26.3 Ratio 02/28/2016 Comp Metabolic Esc881 CALCIUM 8.8 mg/dL 02/28/2016 Comp Metabolic Pzp030 ALK PHOS 58 U/L 02/28/2016 Comp Metabolic Wou069 AST(SGOT) 21 U/L 02/28/2016 Comp Metabolic Dag517 ALT(SGPT) 21 U/L 02/28/2016 Comp Metabolic Esa686 BILI T 0.2 mg/dL 02/28/2016 Comp Metabolic Hlc318 ALBUMIN 3.8 g/dL 02/28/2016 Comp Metabolic Kii433 TPRO 5.7 g/dL 02/28/2016 Comp Metabolic Bjo206 GLOB 1.9 g/dL 02/28/2016 Comp Metabolic Mjw435 A/G Ratio 2.0 Ratio 02/28/2016 Comp Metabolic Ubr598 Osmo 275 mOsmo 02/28/2016 Tsh Ord6 hTSH II 1.25 uIU/mL 02/28/2016 B12 Iyc337 B12 >1500.00 pg/ml 01/11/2016 Vitamin D 25 Oh Jlf1340 VITAMIN D, 25 HYDROXY 45.94 ng/mL Comp Metabolic Cfk424 NA 136 mEq/L 03/21/2015 Comp Metabolic Sqa555 K 3.8 mEq/L 03/21/2015 Comp Metabolic Knk119 CL 101 mEq/L 03/21/2015 Comp Metabolic Nxe887 CO2 31.0 mEq/L 03/21/2015 Comp Metabolic Mab369 ANION GAP 8 03/21/2015 Comp Metabolic Czd631 GLUCOSE 101 mg/dL 03/21/2015 Comp Metabolic Rfk925 Creat 0.7 mg/dL 03/21/2015 Comp Metabolic Lxr561 eGFR 94 ml/min/1.73m2 03/21/2015 Comp Metabolic Oqg528 BUN 13 mg/dL 03/21/2015 Comp Metabolic Prv763 B/C Ratio 18.3 Ratio 03/21/2015 Comp Metabolic Pdo204 CALCIUM 9.3 mg/dL 03/21/2015 Comp Metabolic Off057 ALK PHOS 58 U/L 03/21/2015 Comp Metabolic Qru837 AST(SGOT) 18 U/L 03/21/2015 Comp Metabolic Acw777 ALT(SGPT) 22 U/L 03/21/2015 Comp Metabolic Bre249 BILI T 0.3 mg/dL 03/21/2015 Comp Metabolic Lwb718 ALBUMIN 4.4 g/dL 03/21/2015 Comp Metabolic Ycg246 TPRO 6.7 g/dL 03/21/2015 Comp Metabolic Wpz144 GLOB 2.3 g/dL 03/21/2015 Comp Metabolic Hhf918 A/G Ratio 1.9 Ratio 03/21/2015 Comp Metabolic Ktp876 Osmo 272 mOsmo 03/21/2015 %Hba1C Oti129 % HbA1c 07225-3 5.4 % 03/21/2015 %Hba1C Uil273 Gluc Ave 108 mg/dL 03/21/2015 Cbc With [...] 1.32 uIU/mL 03/21/2015 URINALYSIS NONAUTO W/O SCOPE 14095 Specific [place] 1.025 DateTime(Free Text in Aprima) URINALYSIS NONAUTO W/O SCOPE 19801 PH 5.0 DateTime(Free Text in Aprima) URINALYSIS NONAUTO W/O SCOPE 04915 GLUCOSE NEG DateTime( Free Text in Aprima) URINALYSIS NONAUTO W/O SCOPE 11874 Protein NEG DateTime( Free Text in Aprima) URINALYSIS NONAUTO W/O SCOPE 75392 Blood NEG DateTime(Free Text in Aprima) URINALYSIS NONAUTO W/O SCOPE 91173 Bilirubin NEG DateTime(Free Text in Aprima) URINALYSIS NONAUTO W/O SCOPE 44454 Ketones NEG DateTime( Free Text in Aprima) URINALYSIS NONAUTO W/O SCOPE 20583 Urobilinogen NEG DateTime(Free Text in Aprima) URINALYSIS NONAUTO W/O SCOPE 19482 Nitrite NEG DateTime( Free Text in Aprima) URINALYSIS NONAUTO W/O SCOPE 48192 Leukocytes NEG DateTime(Free Text in Aprima) Review [...] developed 01/13/2018 None Full Exam - General 1995 Constitutional general appearance Development: appears stated age 0801/13/2018 None Full Exam - General 1995 Constitutional [...] time 05/23/2013 None Full Exam - General 1995 Integument palpation Leg: tender 05/19/2013 ulcer left [...] retractions 03/06/2013 None Full Exam - General 1995 Respiratory respiratory effort/rhythm Overall: normal rate 03/06/2013 [...] benign 02/15/2012 None Full Exam - General 1995 [...] Procedure Codes Date THER/PROPH/DIAG INJ SC/IM CPT-4: 45010 04/05/2018 VITAMIN B12 INJECTION CPT-4: J3420 04/05/2018 THER/PROPH/DIAG INJ SC/IM CPT-4: 42728 03/10/2018 VITAMIN B12 INJECTION CPT-4: J3420 03/10/2018 THER/PROPH/DIAG INJ SC/IM CPT-4: 51985 10/19/2017 VITAMIN B12 INJECTION CPT-4: J3420 10/19/2017 URINALYSIS NONAUTO W/O SCOPE CPT-4: 53254 09/17/2017 THER/PROPH/DIAG INJ SC/IM CPT-4: 21497 08/19/2017 VITAMIN B12 INJECTION CPT-4: J3420 08/19/2017 THER/PROPH/DIAG INJ SC/IM CPT-4: 95454 07/06/2017 VITAMIN B12 INJECTION CPT-4: J3420 07/06/2017 THER/PROPH/DIAG INJ SC/IM CPT-4: 34208 04/27/2017 VITAMIN B12 INJECTION CPT-4: J3420 04/27/2017 THER/PROPH/DIAG INJ SC/IM CPT-4: 04799 11/17/2016 VITAMIN B12 INJECTION CPT-4: J3420 11/17/2016 THER/PROPH/DIAG INJ SC/IM CPT-4: 33825 10/12/2016 VITAMIN B12 INJECTION CPT-4: J3420 10/12/2016 THER/PROPH/DIAG INJ SC/IM CPT-4: 52644 09/11/2016 VITAMIN B12 INJECTION CPT-4: J3420 09/11/2016 THER/PROPH/DIAG INJ SC/IM CPT-4: 23979 07/03/2016 VITAMIN B12 INJECTION CPT-4: J3420 07/03/2016 VITAMIN B12 INJECTION CPT-4: J3420 04/20/2016 THER/PROPH/DIAG INJ SC/IM CPT-4: 05952 04/20/2016 ADMIN INFLUENZA VIRUS VAC CPT-4: G0008 03/17/2016 IIV4 FLU VACC NO PRESERV ID Formatting Model/CDA Sections, Assigned to/Kathy Lopez CT: [id number] CPT-4: [id number] 03/17/2016 THER/PROPH/DIAG INJ SC/IM CPT-4: 26474 02/13/2016 VITAMIN B12 INJECTION CPT-4: J3420 02/13/2016 URINALYSIS NONAUTO W/O SCOPE CPT-4: 65911 12/10/2015 THER/PROPH/DIAG INJ SC/IM CPT-4: 56791 12/02/2015 VITAMIN B12 INJECTION CPT-4: J3420 12/02/2015 PNEUMOCOCCAL VACC [address]: [id number] CPT-4: 58028 12/02/2015 IMMUNIZATION ADMIN CPT -4: 44444 12/02/2015 THER/PROPH/DIAG INJ SC/IM CPT-4: 09272 10/29/2015 VITAMIN B12 INJECTION CPT-4: J3420 10/29/2015 THER/PROPH/DIAG INJ SC/IM CPT-4: 57159 06/10/2015 VITAMIN B12 INJECTION CPT-4: J3420 06/10/2015 THER/PROPH/DIAG INJ SC/IM CPT-4: 36826 02/15/2014 VITAMIN B12 INJECTION CPT-4: J3420 02/15/2014 TRIAMCINOLONE ACET INJ NOS CPT-4: J3301 01/15/2014 VITAMIN B12 INJECTION CPT-4: J3420 01/15/2014 THER/PROPH/DIAG INJ SC/IM CPT-4: 43025 12/04/2013 VITAMIN B12 INJECTION CPT-4: J3420 12/04/2013 THER/PROPH/DIAG INJ SC/IM CPT-4: 33875 07/24/2013 VITAMIN B12 INJECTION CPT-4: J3420 07/24/2013 PRESCRIP TRANSMIT VIA ERX SY CPT-4: G8553 06/12/2013 VITAMIN B12 INJECTION CPT-4: J3420 05/10/2013 THER/PROPH/DIAG INJ SC/IM CPT-4: 65060 05/10/2013 TRIAMCINOLONE ACET INJ NOS CPT-4: J3301 03/06/2013 PRESCRIP TRANSMIT VIA ERX SY CPT-4: G8553 03/06/2013 ADMIN INFLUENZA VIRUS VAC CPT-4: G0008 02/20/2013 FLULAVAL VACC, 3 YRS & >, IM CPT-4: Q2036 02/20/2013 THER/PROPH/DIAG INJ SC/IM CPT-4: 16108 02/20/2013 VITAMIN B12 INJECTION CPT-4: J3420 02/20/2013 THER/PROPH/DIAG INJ SC/IM CPT-4: 55058 12/26/2012 TRIAMCINOLONE ACET INJ NOS CPT-4: J3301 12/26/2012 THER/PROPH/DIAG INJ SC/IM CPT-4: 62176 12/21/2012 VITAMIN B12 INJECTION CPT-4: J3420 12/21/2012 THER/PROPH/DIAG INJ SC/IM CPT-4: 32281 11/16/2012 VITAMIN B12 INJECTION CPT-4: J3420 11/16/2012 TB INTRADERMAL TEST (includes injection fee) CPT-4: 15721 09/26/2012 THER/PROPH/DIAG INJ SC/IM CPT-4: 80017 09/12/2012 VITAMIN B12 INJECTION CPT-4: J3420 09/12/2012 TRIAMCINOLONE ACET INJ NOS CPT-4: J3301 08/11/2012 VITAMIN B12 INJECTION CPT-4: J3420 08/11/2012 THER/PROPH/DIAG INJ SC/IM CPT-4: 05646 08/11/2012 VITAMIN B12 INJECTION CPT-4: J3420 07/13/2012 THER/PROPH/DIAG INJ SC/IM CPT-4: 42147 07/13/2012 THER/PROPH/DIAG INJ SC/IM CPT-4: 62953 05/26/2012 TRIAMCINOLONE ACET INJ NOS CPT-4: J3301 05/26/2012 VITAMIN B12 INJECTION CPT-4: J3420 05/26/2012 ADMIN INFLUENZA VIRUS VAC CPT-4: G0008 03/02/2012 FLULAVAL VACC, 3 YRS & >, IM CPT-4: Q2036 03/02/2012 PRESCRIP TRANSMIT VIA ERX SY CPT-4: G8553 02/15/2012 TRIAMCINOLONE ACET INJ NOS CPT-4: J3301 01/13/2012 VITAMIN B12 INJECTION CPT-4: J3420 12/21/2011 VITAMIN B12 INJECTION CPT-4: J3420 10/30/2011 THER/PROPH/DIAG INJ SC/IM CPT-4: 61710 10/30/2011 THER/PROPH/DIAG INJ SC/IM CPT-4: 52622 10/02/2011 VITAMIN B12 INJECTION CPT-4: J3420 10/02/2011 TRIAMCINOLONE ACET INJ NOS CPT-4: J3301 10/02/2011 PRESCRIP TRANSMIT VIA ERX SY CPT-4: G8553 10/02/2011 VITAMIN B12 INJECTION CPT-4: J3420 09/01/2011 URINALYSIS NONAUTO W/O SCOPE CPT-4: 42108 08/03/2011 VITAMIN B12 INJECTION CPT-4: J3420 08/03/2011 THER/PROPH/DIAG INJ SC/IM CPT-4: 37340 08/03/2011 THER/PROPH/DIAG INJ SC/IM CPT-4: 79959 06/11/2011 VITAMIN B12 INJECTION CPT-4: J3420 06/11/2011 ROUTINE VENIPUNCTURE CPT-4: 34112 06/11/2011 THER/PROPH/DIAG INJ SC/IM CPT-4: 64457 02/23/2011 VITAMIN B12 INJECTION CPT-4: J3420 02/23/2011 ADMIN INFLUENZA VIRUS VAC CPT-4: G0008 02/23/2011 FLULAVAL VACC, 3 YRS & >, IM CPT-4: Q2036 02/23/2011 Vital Signs Date Vital 06/16/2018 Blood Pressure 1: 132/78 Code : 8480-6 Heart Rate 1: 120 bpm Height: 5'9" SpO2: 98% Weight: 06/01/2018 Blood Pressure 1: 138/70 Code : 8480-6 BMI: 30.9 Code : 76027-1 Heart Rate 1 : 120 bpm Height: 5'9" Respiratory Rate: 18 bpm SpO2: 96% Weight: 209 lbs 04/05/2018 Blood Pressure 1: 144/80 Code : 8480-6 BMI: 30.9 Code : 17459-7 Heart Rate 1 : 118 bpm Height: 5'9" SpO2: 98% Weight: 209 lbs 03/10/2018 Blood Pressure 1: 162/74 Code : 8480-6 Blood Pressure 1: 128/82 Code: 8480-6 BMI: 30.3 Code: 79199-1 Heart Rate 1: 101 bpm Height: 5'9" SpO2: 98% Weight: 205 lbs 01/13/2018 Blood Pressure 1: 102/78 Code : 8480-6 BMI: 31.6 Code : 60891-4 Heart Rate 1 : 103 bpm Height: 5'9" SpO2: 98% Weight: 214 lbs 11/25/2017 Blood Pressure 1: 114/80 Code : 8480-6 BMI: 30.3 Code : 69001-5 Heart Rate 1 : 112 bpm Height: 5'9" SpO2: 98% Weight: 205 lbs 10/19/2017 Blood Pressure 1: 110/70 Code : 8480-6 BMI: 30.7 Code : 86038-5 Heart Rate 1 : 102 bpm Height: 5'9" SpO2: 97% Weight: 208 lbs 09/17/2017 Blood Pressure 1: 132/78 Code : 8480-6 BMI: 30.4 Code : 66308-3 Heart Rate 1 : 117 bpm Height: 5'9" SpO2: 97% Weight: 206 lbs 09/06/2017 Blood Pressure 1: 110/78 Code : 8480-6 BMI: 29.8 Code : 91987-0 Heart Rate 1 : 106 bpm Height: 5'9" SpO2: 97% Weight: 202 lbs 08/19/2017 Blood Pressure 1: 136/72 Code : 8480-6 BMI: 30.4 Code : 27855-6 Heart Rate 1 : 108 bpm Height: 5'9" SpO2: 94% Weight: 206 lbs 07/06/2017 Blood Pressure 1: 154/80 Code : 8480-6 Heart Rate 1: 111 bpm Height: 5'9" Respiratory Rate: 20 bpm SpO2: 98% Weight: 04/27/2017 Blood Pressure 1: 138/78 Code : 8480-6 BMI: 30.4 Code : 95880-3 Heart Rate 1 : 96 bpm Height: 5'9" SpO2: 97% Weight: 206 lbs 04/06/2017 Blood Pressure 1: 108/80 Code : 8480-6 BMI: 31.0 Code : 11007-7 Heart Rate 1 : 96 bpm Height: 5'9" SpO2: 98% Weight: 210 lbs 02/25/2017 Blood Pressure 1: 132/80 Code : 8480-6 BMI: 32.5 Code : 29757-0 Heart Rate 1 : 112 bpm Height: 5'9" SpO2: 94% Weight: 220 lbs 01/19/2017 Blood Pressure 1: 122/68 Code : 8480-6 Heart Rate 1: 100 bpm Height: 5'9" SpO2: 95% Weight: 11/17/2016 Blood Pressure 1: 132/74 Code : 8480-6 BMI: 32.2 Code : 61987-1 Heart Rate 1 : 98 bpm Height: 5'9" SpO2: 94% Weight: 218 lbs 10/12/2016 Blood Pressure 1: 130/82 Code : 8480-6 BMI: 32.2 Code : 16393-4 Heart Rate 1 : 97 bpm Height: 5'9" SpO2: 94% Weight: 218 lbs 08/18/2016 Blood Pressure 1: 132/78 Code : 8480-6 BMI: 32.0 Code : 14247-3 Heart Rate 1 : 113 bpm Height: 5'9" SpO2: 98% Weight: 217 lbs 08/07/2016 Blood Pressure 1: 126/70 Code : 8480-6 BMI: 33.1 Code : 20552-1 Heart Rate 1 : 102 bpm Height: 5'9" SpO2: 94% Weight: 224 lbs 07/31/2016 Blood Pressure 1: 134/66 Code : 8480-6 BMI: 31.7 Code : 87586-4 Heart Rate 1 : 97 bpm Height: 5'9" SpO2: 95% Temperature: 36.4 (C) / 97.6 (F) Weight: 215 lbs 07/15/2016 Blood Pressure 1: 126/62 Code : 8480-6 Heart Rate 1: 105 bpm Height: 5'9" Weight: 07/07/2016 Blood Pressure 1: 106/54 Code : 8480-6 BMI: 31.7 Code : 42935-5 Heart Rate 1 : 93 bpm Height: 5'9" SpO2: 97% Weight: 215 lbs 06/25/2016 Heart Rate 1: 99 bpm Height: 5'9" SpO2: 95% Weight: 05/07/2016 Blood Pressure 1: 124/86 Code : 8480-6 BMI: 28.5 Code : 33351-3 Heart Rate 1 : 100 bpm Height: 5'9" SpO2: 96% Weight: 193 lbs 04/20/2016 Blood Pressure 1: 120/80 Code : 8480-6 BMI: 28.5 Code : 81730-4 Heart Rate 1 : 86 bpm Height: 5'9" SpO2: 96% Weight: 193 lbs 03/17/2016 Blood Pressure 1: 120/70 Code : 8480-6 BMI: 29.1 Code : 63574-3 Heart Rate 1 : 103 bpm Height: 5'9" SpO2: 96% Weight: 197 lbs 03/05/2016 Blood Pressure 1: 124/78 Code : 8480-6 Heart Rate 1: 82 bpm Height: 5'9" SpO2: 94% Weight: 02/28/2016 Blood Pressure 1: 94/50 Code : 8480-6 Heart Rate 1: 91 bpm Height: 5'9" SpO2: 94% Weight: 02/13/2016 Blood Pressure 1: 128/86 Code : 8480-6 BMI: 28.6 Code : 98656-1 Heart Rate 1 : 100 bpm Height: 5'9" SpO2: 96% Weight: 194 lbs 08/15/2015 Blood Pressure 1: 128/68 Code : 8480-6 BMI: 27.3 Code : 33955-9 Heart Rate 1 : 72 bpm Height: 5'9" SpO2: 92% Weight: 185 lbs 07/25/2015 Blood Pressure 1: 122/76 Code : 8480-6 BMI: 27.5 Code : 86579-0 Heart Rate 1 : 70 bpm Height: 5'9" SpO2: 94% Weight: 186 lbs 06/25/2015 Blood Pressure 1: 118/54 Code : 8480-6 BMI: 26.7 Code : 18338-0 Heart Rate 1 : 98 bpm Height: 5'9" SpO2: 97% Weight: 181 lbs 06/10/2015 Blood Pressure 1: 110/68 Code : 8480-6 Heart Rate 1: 80 bpm Height: SpO2: 98% Weight: 05/08/2015 Blood Pressure 1: 120/68 Code : 8480-6 BMI: 27.5 Code : 89891-2 Heart Rate 1 : 95 bpm Height: 5'9" SpO2: 96% Weight: 186 lbs 03/26/2015 Blood Pressure 1: 120/80 Code : 8480-6 Heart Rate 1: 102 bpm Respiratory Rate: 18 bpm SpO2: 92% Weight: 186 lbs 03/15/2015 Blood Pressure 1: 122/64 Code : 8480-6 BMI: 26.6 Code : 40400-5 Heart Rate 1 : 96 bpm Height: 5'9" SpO2: 96% Weight: 180 lbs 01/10/2015 Blood Pressure 1: 120/68 Code : 8480-6 BMI: 27.5 Code : 49521-4 Heart Rate 1 : 90 bpm Height: 5'9" Weight: 186 lbs 12/21/2014 Blood Pressure 1: 118/78 Code : 8480-6 BMI: 27.2 Code : 14912-1 Heart Rate 1 : 61 bpm Height: 5'9" SpO2: 97% Weight: 184 lbs 10/05/2014 Blood Pressure 1: 118/64 Code : 8480-6 BMI: 27.0 Code : 39406-2 Heart Rate 1 : 76 bpm Height: 5'9" Weight: 183 lbs 06/14/2014 Blood Pressure 1: 120/78 Code : 8480-6 BMI: 26.6 Code : 13378-0 Heart Rate 1 : 96 bpm Height: 5'9" Weight: 180 lbs 01/19/2014 Blood Pressure 1: 128/76 Code : 8480-6 BMI: 27.3 Code : 92408-5 Heart Rate 1 : 82 bpm Height: 5'9" Weight: 185 lbs 01/15/2014 Blood Pressure 1: 110/62 Code : 8480-6 BMI: 27.9 Code : 10393-7 Heart Rate 1 : 80 bpm Height: 5'9" Weight: 189 lbs 10/20/2013 Blood Pressure 1: 11262 Code : 8480-6 BMI: 30.1 Code : 51647-5 Heart Rate 1 : 76 bpm Height: [...] Code : 8480-6 BMI: 30.6 Code : 17339-6 Heart Rate 1 : 92 bpm Height: 5'9" Weight: 207 lbs 05/23/2013 Blood Pressure 1: 120/78 Code : 8480-6 Heart Rate 1: 84 bpm Weight: 05/19/2013 Blood Pressure 1: 126/78 Code : 8480-6 BMI: 30.3 Code : 07219-2 Heart Rate 1 : 88 bpm Height: 5'9" Weight: 205 lbs 05/16/2013 Blood Pressure 1: 126/66 Code : 8480-6 BMI: 30.3 Code : 16789-8 Heart Rate 1 : 84 bpm Height: 5'9" Weight: 205 lbs 03/06/2013 Blood Pressure 1: 128/76 Code : 8480-6 BMI: 30.6 Code : 73312-2 Heart Rate 1 : 88 bpm Height: 5'9" Weight: 207 lbs 12/26/2012 Blood Pressure 1: 142/70 Code : 8480-6 BMI: 29.6 Code : 31237-8 Heart Rate 1 : 100 bpm Height: 5'9" Weight: 200 lbs 8 oz 11/21/2012 Blood Pressure 1: 132/80 Code : 8480-6 BMI: 29.5 Code : 73593-7 Heart Rate 1 : 96 bpm Height: [...] Code : 8480-6 BMI: 29.2 Code : 87088-8 Heart Rate 1 : 64 bpm Height: 5'9" Respiratory Rate: 16 bpm Weight: 198 lbs 03/11/2011 Blood Pressure 1: 106/60 Code : 8480-6 BMI: 28.8 Code : 21590-2 Heart Rate 1 : 100 bpm Height: 5'9" SpO2: 97% Weight: 195 lbs 02/12/2011 Weight: 192 lbs 01/29/2011 Blood Pressure 1: 100/64 Code : 8480-6 BMI: 28.1 Code : 16870-4 Heart Rate 1 : 100 bpm Height: [...] Hospital Follow Up _ pain 05/16/2013 left vsin-pomu-glaiz to left knee-applying neosporin and covering with [...] [id number] shortness of breath Triggers exertion 03/11/2011 None [...] 02/12/2011 and pt went to her chiropractor/ dietitian teacher this week and was" worked on" and she has been feeling better shortness of breath Alleviating Factors rest 02/12/2011 pt states that her shortness of breath got better after her dietitian teacher adjusted her pelvis gastroesophageal reflux Quality heartburn [...] data Encounters Encounter Performer Location Codes Date ( EST. PATIENT, LEVEL III Diagnosis: Acute upper respiratory infection, unspecified[ICD10: J06.9] Diagnosis: Generalized anxiety disorder[ICD10: F41.1] Valentina Thompson MD, [facility] CPT-4: 16016 06/16/2018 ([id number]) 71343 EST. PATIENT, LEVEL IV Diagnosis: Chronic pain syndrome[ICD10: G89.4] Diagnosis: Generalized anxiety disorder[ICD10: F41.1] Diagnosis: Low back pain[ICD10: M54.5] Diagnosis: Essential (primary) hypertension[ICD10: I10] Aicha Thompson MD, [facility] CPT-4: 65662 06/01/2018 ([id number]) 72684 EST. PATIENT, LEVEL IV Diagnosis: Essential (primary) hypertension[ICD10: I10] Diagnosis: Chronic pain syndrome[ICD10: G89.4] Diagnosis: Vitamin B12 deficiency anemia due to intrinsic factor deficiency[ ICD10: D51.0] Aicha Thompson MD, [facility] CPT-4: 70556 04/05/2018 ([id number]) 58174 EST. PATIENT, LEVEL IV Diagnosis: Essential (primary) hypertension[ICD10: I10] Diagnosis: Generalized anxiety disorder[ICD10: F41.1] Diagnosis: Major depressive disorder, recurrent, mild[ICD10: F33.0] Diagnosis: Vitamin B12 deficiency anemia due to intrinsic factor deficiency[ ICD10: D51.0] Valentina Thompson MD, [facility] CPT-4: 05858 03/10/2018 ([id number]) 21506 EST. PATIENT, LEVEL IV Diagnosis: Headache[ICD10: R51] Diagnosis: Obstructive sleep apnea (adult) (pediatric)[ICD10: G47.33] Diagnosis: Cervicalgia[ICD10: M54.2] Valentina Thompson MD, [facility] CPT-4: 33672 01/13/2018 ([id number]) 47730 EST. PATIENT, LEVEL IV Diagnosis: Headache[ICD10: R51] Diagnosis: Spinal stenosis, cervical region[ICD10: M48.02] Diagnosis: Major depressive disorder, recurrent, mild[ICD10: F33.0] Valentina Thompson MD , [facility] CPT-4: 58428 11/25/2017 ([id number]) 36271 EST. PATIENT, LEVEL III Diagnosis: Allergic contact dermatitis due to plants, except food[ICD10: L23.7] Diagnosis: Vitamin B12 deficiency anemia due to intrinsic factor deficiency[ ICD10: D51.0] Valentina Thompson MD, [facility] CPT-4: 96844 10/19/2017 ([id number]) 06070 EST. PATIENT, LEVEL IV Diagnosis: Generalized abdominal pain[ICD10: R10.84] Diagnosis: Urinary tract infection, site not specified[ICD10: N39.0] Diagnosis: Hypokalemia[ICD10: E87.6] Valentina Thompson MD, [facility] CPT-4: 94427 09/17/2017 ([id number]) 42962 EST. PATIENT, LEVEL IV Diagnosis: Chronic pain syndrome[ICD10: G89.4] Diagnosis: Pain in left knee[ICD10: M25.562] Diagnosis: Pain in right knee[ICD10: M25.561] Diagnosis: Essential (primary) hypertension[ICD10: I10] Aicha Thompson MD, [facility] CPT-4: 35205 09/06/2017 ([id number]) 62138 EST. PATIENT, LEVEL IV Diagnosis: Headache[ICD10: R51] Diagnosis: Chronic pain syndrome[ICD10: G89.4] Diagnosis: Mixed hyperlipidemia[ICD10: E78.2] Diagnosis: Vitamin D deficiency, unspecified[ICD10: E55.9] Diagnosis: Vitamin B12 deficiency anemia, unspecified[ICD10: D51.9] Valentina Thompson MD , [facility] CPT-4: 68032 08/19/2017 19230 EST. PATIENT, LEVEL V Diagnosis: Essential (primary) hypertension[ICD10: I10] Diagnosis: Vitamin B12 deficiency anemia due to intrinsic factor deficiency[ ICD10: D51.0] Diagnosis: Chronic pain syndrome[ICD10: G89.4] Aicha Thompson MD, [facility] CPT-4: 38924 07/06/2017 ([id number]) 09477 EST. PATIENT, LEVEL IV Diagnosis: Cervicalgia[ICD10: M54.2] Diagnosis: Laceration without foreign body of scalp, initial encounter[ICD10: S01.01XA] Diagnosis: Vitamin B12 deficiency anemia due to intrinsic factor deficiency[ ICD10: D51.0] Valentina Thompson MD, [facility] CPT-4: 45098 04/27/2017 38983 EST. PATIENT, LEVEL II Diagnosis: Residual hemorrhoidal skin tags[ICD10: K64.4] Valentina Thompson MD, [facility] CPT-4: 87346 04/06/2017 ([id number]) 09301 EST. PATIENT, LEVEL III Diagnosis: Pain in right foot[ICD10: M79.671] Diagnosis: Pain in left foot[ICD10: M79.672] Diagnosis: Cervicalgia[ICD10: M54.2] Valentina Thompson MD, [facility] CPT-4: 71591 02/25/2017 ([id number]) 39623 EST. PATIENT, LEVEL IV Diagnosis: Essential (primary) hypertension[ICD10: I10] Diagnosis: Chronic pain syndrome[ICD10: G89.4] Diagnosis: Spinal stenosis, cervical region[ICD10: M48.02] Diagnosis: Pain in right leg[ICD10: M79.604] Valentina Thompson MD, [facility] CPT-4: 64693 01/19/2017 ([id number]) 97797 EST. PATIENT, LEVEL III Diagnosis: Pain in right foot[ICD10: M79.671] Diagnosis: Pain in left foot[ICD10: M79.672] Diagnosis: Chronic pain syndrome[ICD10: G89.4] Diagnosis: Vitamin B12 deficiency anemia, unspecified[ICD10: D51.9] Valentina Thompson MD , [facility] CPT-4: 41786 11/17/2016 ([id number]) 27596 EST. PATIENT, LEVEL IV Diagnosis: Essential (primary) hypertension[ICD10: I10] Diagnosis: Chronic pain syndrome[ICD10: G89.4] Diagnosis: Foot drop, right foot[ICD10: M21.371] Diagnosis: Foot drop, left foot[ICD10: M21.372] Diagnosis: Other abnormalities of gait and mobility[ICD10: R26.89] Diagnosis: Vitamin B12 deficiency anemia due to intrinsic factor deficiency[ ICD10: D51.0] Aicha Thompson MD, [facility] CPT-4: 54380 10/12/2016 ([id number]) 53896 EST. PATIENT, LEVEL III Diagnosis: Pain in right ankle and joints of right foot[ICD10: M25.571] Diagnosis: Superficial foreign body, right foot, initial encounter[ICD10: S90.851A] Valentina Thompson MD, [facility] CPT-4: 10921 ([id number]) 66987 EST. PATIENT, LEVEL III Diagnosis: Candidiasis of vulva and vagina[ICD10: B37.3] Diagnosis: Vitamin B12 deficiency anemia, unspecified[ICD10: D51.9] Valentina Thompson MD , [facility] CPT-4: 19627 08/07/2016 ([id number]) 18006 EST. PATIENT, LEVEL III Diagnosis: Spinal stenosis, cervical region[ICD10: M48.02] Diagnosis: Pain in right ankle and joints of right foot[ICD10: M25.571] Diagnosis: Pain in left ankle and joints of left foot[ICD10: M25.572] Valentina Thompson MD, [facility] CPT-4: 73059 07/31/2016 84729 EST. PATIENT, LEVEL III Diagnosis: Cervicalgia[ICD10: M54.2] Diagnosis: Chronic pain syndrome[ICD10: G89.4] Beatriz Thompson MD, [facility] CPT-4: 08741 07/15/2016 ([id number]) 18594 EST. PATIENT, LEVEL III Diagnosis: Spinal stenosis, cervical region[ICD10: M48.02] Diagnosis: Low back pain[ICD10: M54.5] Valentina Thompson MD, [facility] CPT-4: 95257 07/07/2016 ([id number]) 46094 EST. PATIENT, LEVEL IV Diagnosis: Cervicalgia[ICD10: M54.2] Diagnosis: Essential (primary) hypertension[ICD10: I10] Diagnosis: Mixed hyperlipidemia[ICD10: E78.2] Aicha Thompson MD, [facility] CPT-4: 25116 06/25/2016 ([id number]) 66927 EST. PATIENT, LEVEL III Diagnosis: Cervicalgia[ICD10: M54.2] Valentina Thompson MD, [facility] CPT-4: 75566 05/07/2016 ([id number]) 89213 EST. PATIENT, LEVEL III Diagnosis: Pleurodynia[ICD10: R07.81] Diagnosis: Generalized anxiety disorder[ICD10: F41.1] Diagnosis: Vitamin B12 deficiency anemia due to intrinsic factor deficiency[ ICD10: D51.0] Diagnosis: Hypoxemia[ICD10: R09.02] Valentina Thompson MD, [facility] CPT-4: 10488 04/20/2016 ([id number]) 35631 EST. PATIENT, LEVEL III Diagnosis: Generalized anxiety disorder[ICD10: F41.1] Diagnosis: Radiculopathy, lumbar region[ICD10: M54.16] Valentina Thompson MD, [facility] CPT-4: 49566 03/17/2016 09447 EST. PATIENT, LEVEL IV Diagnosis: Chronic pain syndrome[ICD10: G89.4] Diagnosis: Radiculopathy, lumbar region[ICD10: M54.16] Diagnosis: Generalized anxiety disorder[ICD10: F41.1] Beatriz Thompson MD, [facility] CPT-4: 54210 03/05/2016 ([id number]) 35183 EST. PATIENT, LEVEL III Diagnosis: Radiculopathy, lumbar region[ICD10: M54.16] Diagnosis: Generalized anxiety disorder[ICD10: F41.1] Valentina Thompson MD, [facility] CPT-4: 85147 02/28/2016 ([id number]) 05676 EST. 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 PATIENT, LEVEL III Diagnosis: Headache[ICD10: R51] Diagnosis: Cervicalgia[ICD10: M54.2] Valentina Thompson MD, [facility] CPT-4: 81082 08/15/2015 ([id number]) 03956 EST. PATIENT, LEVEL III Diagnosis: Generalized anxiety disorder[ICD10: F41.1] Diagnosis: Cervicalgia[ICD10: M54.2] Valentina Thompson MD, [facility] CPT-4: 58980 07/25/2015 ([id number]) 30271 EST. PATIENT, LEVEL IV Diagnosis: Pain in right foot[ICD10: M79.671] Diagnosis: Unspecified osteoarthritis, unspecified site[ICD10: M19.90] Diagnosis: Pain in left ankle and joints of left foot[ICD10: M25.572] Diagnosis: Pain in right ankle and joints of right foot[ICD10: M25.571] Valentina Thompson MD, [facility] CPT-4: 20590 06/25/2015 ([id number]) 49332 EST. 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 PATIENT, LEVEL IV Diagnosis: Essential (primary) hypertension[ICD10: I10] Diagnosis: Pain in right foot[ICD10: M79.671] Diagnosis: Pain in left foot[ICD10: M79.672] Diagnosis: Anxiety disorder, unspecified[ICD10: F41.9] Aicha Thompson MD, [facility] CPT-4: 32574 05/08/2015 ([id number]) 20212 EST. PATIENT, LEVEL III Diagnosis: Generalized anxiety disorder[ICD10: F41.1] Diagnosis: Essential (primary) hypertension[ICD10: I10] Diagnosis: Other myositis, multiple sites[ICD10: M60.89] Valentina Thompson MD, [facility] CPT-4: 03802 03/26/2015 13344 EST. PATIENT, LEVEL III Diagnosis: Chronic pain syndrome[ICD10: G89.4] Diagnosis: Unspecified osteoarthritis, unspecified site[ICD10: M19.90] Diagnosis: Pain in right foot[ICD10: M79.671] Diagnosis: Pain in left foot[ICD10: M79.672] Beatriz Thompson MD, [facility] CPT -4: 16020 03/15/2015 ([id number]) 31036 EST. PATIENT, LEVEL III Diagnosis: Abrasion of knee, left[ICD9: 916.0] Valentina Thompson MD, [facility] CPT-4: 89917 01/10/2015 ([id number]) 23183 EST. PATIENT, LEVEL IV Diagnosis: CHRONIC PAIN SYNDROME[ICD9: 338.4] Diagnosis: MYALGIA AND MYOSITIS[ICD9: 729.1] Diagnosis: OSTEOARTH NOS-UNSPEC[ICD9: 715.90] Diagnosis: DEPRESSIVE DISORDER NEC[ICD9: 311] Diagnosis: GENERALIZED ANXIETY DISEASE[ICD9: 300.02] Valentina Thompson MD, [facility] CPT-4: 56931 12/21/2014 ([id number]) 46626 EST. PATIENT, LEVEL IV Diagnosis: GENERALIZED ANXIETY DISEASE[ICD9: 300.02] Diagnosis: DEPRESSIVE DISORDER NEC[ICD9: 311] Diagnosis: ESSENTIAL HYPERTENSION[ICD9: 401.9] Valentina Thompson MD, [facility] CPT-4: 41309 10/05/2014 ([id number]) 51261 EST. PATIENT, LEVEL III Diagnosis: Knee pain, right[ICD9: 719.46] Diagnosis: CHRONIC PAIN SYNDROME[ICD9: 338.4] Diagnosis: Ankle pain[ICD9: 719.47] Aicha Thompson MD, [facility] CPT-4: 65368 06/14/2014 ([id number]) 02569 EST. PATIENT, LEVEL III Diagnosis: Constipation[ICD9: 564.00] Diagnosis: Hemorrhoids[ICD9: 455.6] Valentina Thompson MD [facility] CPT-4: 07978 01/19/2014 ([id number]) 03625 EST. PATIENT, LEVEL III Diagnosis: Ulcer of knee[ICD9: 707.19] Diagnosis: Hemorrhoids[ICD9: 455.6] Diagnosis: B12 deficiency[ICD9: 266.2] Diagnosis: ALLERGIC RHINITIS[ICD9: 477.9] Valentina Thompson MD, [facility] CPT-4: 39297 01/15/2014 ([id number]) 42138 EST. PATIENT, LEVEL IV Diagnosis: EDEMA[ICD9: 782.3] Diagnosis: Open wound of knee[ICD9: 891.0] Diagnosis: CHRONIC PAIN SYNDROME[ICD9: 338.4] Diagnosis: ANEMIA[ICD9: 285.9] Valentina Thompson MD, [facility] CPT-4: 15551 10/20/2013 ([id number]) 20595 EST. PATIENT, LEVEL III Diagnosis: ULCER OTH PART LOW LIMB[ICD9: 707.19] Valentina Thompson MD, [facility] CPT-4: 63351 07/24/2013 ([id number]) 66073 EST. PATIENT, LEVEL III Diagnosis: ULCER OTH PART LOW LIMB[ICD9: 707.19] Valentina Thompson MD [facility] CPT-4: 65492 06/23/2013 ([id number]) 15160 EST. PATIENT, LEVEL III Diagnosis: ULCER OTH PART LOW LIMB[ICD9: 707.19] Valentina Thompson MD [facility] CPT-4: 88610 06/12/2013 ([id number]) Miscellaneous no charge Diagnosis: ULCER OTH PART LOW LIMB[ICD9: 707.19] Valentina Thompson MD, [facility] CPT-4: 95933 05/29/2013 ([id number]) 27676 EST. PATIENT, LEVEL III Diagnosis: ULCER OTH PART LOW LIMB[ICD9: 707.19] Valentina Thompson MD, [facility] CPT-4: 37544 05/23/2013 ([id number]) Miscellaneous no charge Diagnosis: ULCER OTH PART LOW LIMB[ICD9: 707.19] Valentina Thompson MD, [facility] CPT-4: 36949 05/19/2013 ([id number]) 69321 EST. PATIENT, LEVEL III Diagnosis: Ulcer of knee[ICD9: 707.19] Valentina Thompson MD [facility] CPT-4: 48119 05/16/2013 ([id number]) 61223 EST. PATIENT, LEVEL III Diagnosis: ALLERGIC RHINITIS[ICD9: 477.9] Aicha Thompson MD [facility] CPT- 4: 35180 03/06/2013 ([id number]) 61825 EST. PATIENT, LEVEL IV Diagnosis: Ankle pain[ICD9: 719.47] Diagnosis: ALLERGIC RHINITIS[ICD9: 477.9] Diagnosis: ESSENTIAL HYPERTENSION[SNOMED: 68118690] Aicha Thompson MD [facility] CPT-4: 07394 12/26/2012 ([id number]) 91855 EST. PATIENT, LEVEL IV Diagnosis: ESSENTIAL HYPERTENSION[SNOMED: 59000870] Diagnosis: JOINT PAIN-L/LEG[ICD9: 719.46] Diagnosis: GENERALIZED ANXIETY DISEASE[ICD9: 300.02] Diagnosis: UNSPECIFIED ASTHMA[ICD9: 493.90] Aicha Thompson MD [facility] CPT-4: 33487 11/21/2012 ([id number]) Miscellaneous no charge Diagnosis: Encounter for tuberculin skin test[ICD9: V74.1] Aicha Thompson MD [facility] CPT-4: 06085 09/28/2012 ([id number]) 50234 EST. PATIENT, LEVEL IV Diagnosis: FEVER NOS[ICD9: 780.60] Diagnosis: PNEUMONIA (CAP)[ICD9: 486] Aicha Thompson MD [facility] CPT- 4: 49962 07/21/2012 ([id number]) 30153 EST. PATIENT, LEVEL IV Diagnosis: JOINT PAIN-ANKLE[ICD9: 719.47] Diagnosis: MUSCLE/LIGAMENT DIS NEC[ICD9: 728.89] Diagnosis: Fibromyalgia muscle pain[ICD9: 729.1] Aicha Thompson MD [facility] CPT-4: 93564 07/13/2012 ([id number]) 10075 EST. PATIENT, LEVEL IV Diagnosis: Right foot pain[ICD9: 729.5] Diagnosis: Plantar fasciitis[ICD9: 728.71] Diagnosis: GENERALIZED ANXIETY DISEASE[ICD9: 300.02] Diagnosis: B-COMPLEX DEFIC NEC[ICD9: 266.2] Aicha Thompson MD [facility] CPT-4: 10580 05/26/2012 ([id number]) 30725 EST. PATIENT, LEVEL IV Diagnosis: Chest wall pain[ICD9: 786.52] Diagnosis: Esophageal reflux[ICD9: 530.81] Diagnosis: ALLERGIC RHINITIS[ICD9: 477.9] Valentina Thompson MD, [facility] CPT-4: 82795 02/15/2012 ([id number]) 12270 EST. PATIENT, LEVEL IV Diagnosis: ALLERGIC RHINITIS[ICD9: 477.9] Diagnosis: HYPERLIPIDEMIA[ICD9: 272.4] Aicha Thompson MD [facility] CPT- 4: 65497 01/13/2012 ([id number]) 42278 EST. PATIENT, LEVEL IV Diagnosis: JOINT PAIN-L/LEG[ICD9: 719.46] Diagnosis: UNSPECIFIED ASTHMA[ICD9: 493.90] Diagnosis: Costalchondritis[ICD9: 733.6] Aihca Thompson MD, [facility] CPT- 4: 21880 12/21/2011 ([id number]) 49787 EST. PATIENT, LEVEL IV Diagnosis: Hyperlipidemia[ICD9: 272.4] Diagnosis: ALLERGIC RHINITIS[ICD9: 477.9] Diagnosis: B12 deficiency[ICD9: 266.2] Diagnosis: Hypopotassemia[ICD9: 276.8] Valentina Thompson MD [facility] CPT-4: 74410 10/02/2011 ([id number]) 61499 EST. PATIENT, LEVEL IV Diagnosis: Pain in joint involving forearm[ICD9: 719.43] Diagnosis: Neck pain[ICD9: 723.1] Diagnosis: Fall on same level from slipping, tripping, or stumbling[ICD9: E885.9 ] Diagnosis: B12 deficiency[ICD9: 266.2] Aicha Thompson MD [facility] CPT- 4: 13206 09/01/2011 ([id number]) 59062 EST. PATIENT, LEVEL IV Diagnosis: Vulvovaginitis[ICD9: 616.10] Diagnosis: OVERWEIGHT[ICD9: 278.02] Diagnosis: MYALGIA AND MYOSITIS[ICD9: 729.1] Aicha Thompson MD, [facility] CPT-4: 52649 08/03/2011 ([id number]) 24894 EST. PATIENT, LEVEL IV Diagnosis: MUSCLE/LIGAMENT DIS NEC[ICD9: 728.89] Diagnosis: CHRONIC PAIN SYNDROME[ICD9: 338.4] Diagnosis: Weight gain[ICD9: 783.1] Aicha Thompson MD, [facility] CPT-4: 45322 06/29/2011 93996 EST. PATIENT, LEVEL IV Diagnosis: Wrist pain[ICD9: 719.43] Diagnosis: Knee pain, right[ICD9: 719.46] Diagnosis: Fall on same level from slipping, tripping, or stumbling[ICD9: E885.9 ] Aicha Thompson MD, [facility] CPT-4: 35784 06/22/2011 43971 EST. PATIENT, LEVEL IV Diagnosis: MUSCLE/LIGAMENT DIS NEC[ICD9: 728.89] Diagnosis: JOINT PAIN-L/LEG[ICD9: 719.46] Diagnosis: OSTEOARTH NOS-UNSPEC[ICD9: 715.90] Diagnosis: B12 deficiency[ICD9: 266.2] Aicha Thompson MD, [facility] CPT- 4: 64836 06/11/2011 85393 EST. 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 PATIENT, LEVEL IV Diagnosis: Knee pain, bilateral[ICD9: 719.46] Diagnosis: Iliotibial band syndrome[ICD9: 728.89] Diagnosis: Fibromyalgia syndrome[ICD9: 729.1] Aicha Thompson MD, [facility] CPT-4: 26920 02/12/2011 11407 EST. PATIENT, LEVEL IV Diagnosis: FALL FROM SLIPPING[ICD9: E885.9] Diagnosis: Pain in joint involving lower leg[ICD9: 719.46] Diagnosis: ESOPHAGEAL REFLUX[ICD9: 530.81] Diagnosis: ESSENTIAL HYPERTENSION[SNOMED: 05731046] [facility] CPT-4: 12879 01/29/2011 Plan of Care Planned Activity Notes [...] wear her CPAP the past few days. Buoigpj-pwbbhqx-amzkxyhdg patient continue taper of medication as discussed with Dr Thompson -continue counseling 06/16/2018 Appointment: Valentina Smith WPtel: [phone] (30 min) [facility] 06/16/2018 Patient Education: Patient Medication Summary Completed [...] her psychiatrist. 06/01/2018 Appointment: [phone] (30 min) Complex 06/01/2018 Patient Education: Patient Medication Summary Completed 06/01/2018 Patient Education: Back Pain Completed 06/01/2018 Patient Education: Hypertension Completed 06/01/2018 Patient Education: Obesity Completed 06/01/2018 Appointment: [phone] (15 min) Moderate 04/18/2018 Visit Plan: Hypertension [...] hydrocodone. 04/05/2018 Appointment: Aicha Thompson WPtel: [phone] [facility] (30 min) Complex 04/05/2018 Patient Education: Patient Medication Summary Completed 04/05/2018 Appointment: Aicha Thompson WPtel: [phone] [facility] (15 min) Moderate 03/17/2018 Visit Plan: Hypertension [...] weeks 03/10/2018 Appointment: [phone] [place] (15 min) Moderate 03/10/2018 Appointment: [facility] Thompson [facility] [place] (15 min) Moderate 03/10/2018 Patient Education: Patient Medication Summary Completed 03/10/2018 Patient Education: Depression Completed 03/10/2018 Visit Plan: Headaches-patient is not wearing her CPAP and i suspect this may be contributing to her headaches-will contact [facility] for a new sleep study Neck pain -spinal stenosis - has attempted to contact patient with no response from Mary-I have instructed her to call them and get appt scheduled 01/13/2018 Appointment: Valentina Smith WPtel: [phone] (15 min) Moderate 01/13/2018 Patient Education: [...] current medications. 11/25/2017 Appointment: Valentina Smith WPtel: [phone] (30 min) Complex 11/25/2017 Patient Education: Patient Medication Summary Completed 11/25/2017 Visit Plan: Contact dermatitis-discussed natural and expected course of this diagnosis and to alert me if symptoms do not resolve or if any worse. RX sent to patient's pharmacy and instructed on use. 10/19/2017 Appointment: Valentina Smith WPtel: [phone] (15 min) Moderate 10/19/2017 Patient Education: Patient Medication Summary Completed 10/19/2017 Appointment: Valentina Smith WPtel: [phone] [place] (30 min) Complex 09/27/2017 Visit Plan: Generalized abd paqd-VYU-jiymdc cipro/flagyl- culture urine-recommend patient follow up with Dr Grace for an appt if abdominal pain does not improve Low potassium-check labs 09/17/2017 Visit Plan: Generalized abd nzgq-YNK-hekkbt cipro/flagyl- culture urine-recommend patient follow up with Dr Grace for an appt if abdominal pain does not improve Low potassium-check labs 09/17/2017 Appointment: Valentina Smith WPtel: [address] [place], [place] [phone] (30 min) Complex 09/17/2017 Patient Education: Patient [...] of over-medication. 09/06/2017 Appointment: Aicha Thompson WPtel: [address] [place], [place] [phone] (30 min) Complex 09/06/2017 Patient Education: Patient Medication Summary Completed 09/06/2017 Appointment: Aicha Thompson WPtel: [address] [place] [phone] (30 min) Complex 09/02/2017 Appointment: Aicha Thompson WPtel: [address] [place] [phone] (30 min) Complex 08/23/2017 Visit Plan: Headaches-neck pain-patient is to let us know which neurologist she wants to see B12 def-injection today in the office Hyperlipidemia-check labs Vitamin D def-check level 08/19/2017 Appointment: Valentina Smith WPtel: [phone] [place] (30 min) Complex 08/19/2017 Patient Education: Patient [...] the list of the neurologists that her diving fisher has recommended and we would consider a [...] the list of the neurologists that her diving fisher has recommended and we would consider a [...] the psychiatrist. 07/06/2017 Appointment: Aicha Thompson WPtel: [facility] (30 min) Complex 07/06/2017 Patient Education: Patient Medication Summary Completed 07/06/2017 Appointment: Aicha Thompson WPtel: [facility] (30 min) Complex 07/05/2017 Appointment: Valentina Smith WPtel: [phone] [place] (30 min) Complex 05/17/2017 Appointment: Beatriz Mojica WPtel: [facility] (30 min) Complex 05/14/2017 Visit Plan: Neck yept-kuzzrrv-fuygsee to continue f/u with [facility]-her symptoms have [...] of plan. 04/27/2017 Appointment: Valentina Smith WPtel: [phone] 04/27/2017 Patient Education: Patient Medication Summary Completed 04/27/2017 Patient Education: Obesity Completed 04/27/2017 Visit Plan: Hemorrhoidal skin tag-no acute inflammation today -may use hemorrhoid cream as directed as needed-call with any concerns, bleeding, etc. 04/06/2017 Appointment: Valentina Smith WPtel: [phone] (30 min) Complex 04/06/2017 Patient Education: Patient Medication Summary Completed 04/06/2017 Patient Education: Obesity Completed 04/06/2017 Visit Plan: Bilateral foot and ankle pain-now has AFOs-we have made her several appt with podiatrists which she has not kept-recommend patient call Dr Saunders and reschedule appt with him. Neck pain-[facility] appt next week-KEEP APPOINTMENT! 02/25/2017 Appointment: Valentina Smith WPtel: [phone] [place] [address] (30 min) Complex 02/25/2017 Patient Education: Patient [...] podiatry for evaluation-wants to see someone in [place] 11/17/2016 Appointment: Valentina Smith WPtel: [phone] [phone] (30 min) Complex 11/17/2016 Patient Education: Patient Medication Summary Completed 11/17/2016 Appointment: [facility]el[phone] [phone] (30 min) Complex 11/16/2016 Visit Plan: Suzannei referral - pt to indicate when and who she would like to go to - for neck and back AFO for both legs - [facility] [place]- fax #[phone] pt has been seen by software quality assurance specialist - need brace because of bilateral [...] over- medication. 10/12/2016 Appointment: Aicha Thompson WPtel: [facility] (30 min) Complex 10/12/2016 Patient Education: Patient Medication Summary Completed 10/12/2016 Patient Education: Obesity Completed 10/12/2016 Appointment: Injection 09/11/2016 Patient Education: Patient Medication Summary Completed 09/11/2016 Visit Plan: Right ankle pain/instability-xray negative- will obtain MRI ankle Ulcer right foot-instructed patient on wound care and the importance of keeping wound clean-f/u in 10-14 days for re-evaluation 08/18/2016 Appointment: Valentina Smith WPtel: [phone] (30 min) Complex 08/18/2016 Patient Education: Patient Medication Summary Completed 08/18/2016 Patient Education: Obesity Completed 08/18/2016 Care Plan: X-RAY EXAM NECK SPINE 2-3 VW LOINC : 30653-7 Pending 08/15/2016 Visit Plan: Vaginal yeast infection-RX for diflucan B12 deficiency-check labs 08/07/2016 Appointment: Valentina Smith WPtel: [phone] (30 min) Complex 08/07/2016 Patient Education: Patient Medication Summary Completed 08/07/2016 Visit Plan: Cervical stenosis-saw Dr Ramey-Dr Ramey is going to send her to for further evaluation Bilateral ankle pain-xray ankles 07/31/2016 Appointment: Valentina Smith WPtel: [phone] (30 min) Complex 07/31/2016 Patient Education: Patient Medication Summary Completed 07/31/2016 Patient Education: Obesity Completed 07/31/2016 Visit Plan: Neck pain after fall - Will check x-ray, Pt is to follow up with Dr. Perez. Pt is to notify clinic if symptoms do not improve , if they worsen, or with any questions or concerns. 07/15/2016 Appointment: Beatriz Mojica WPtel: [facility] (30 min) Complex 07/15/2016 Patient Education: Patient [...] Appointment: Injection 07/03/2016 Appointment: Valentina Smith WPtel: [phone] (30 min) Complex 07/03/2016 Patient Education: Patient [...] despite PT. 05/07/2016 Appointment: Valentina Smith WPtel: [phone] (30 min) [facility] 05/07/2016 Patient Education: Patient Medication Summary Completed 05/07/2016 Patient Education: Obesity Completed 05/07/2016 Care Plan: MRI NECK SPINE W/O DYE LOINC : 00233-2 Pending 05/07/2016 Visit Plan: Chronic Depression and [...] monitor symptoms 04/20/2016 Appointment: Valentina Smith WPtel: [phone] [phone] (30 min) Complex 04/20/2016 Patient Education: Patient Medication Summary Completed 04/20/2016 Appointment: Valentina Smith WPtel: [phone] [phone] (30 min) Complex 03/19/2016 Visit Plan: [...] Dr Ibarra 03/17/2016 Appointment: Valentina Smith WPtel: [phone] [place] (30 min) Complex 03/17/2016 Patient Education: [...] current medications. 02/28/2016 Appointment: Valentina Smith WPtel: [phone] (15 min) Moderate 02/28/2016 Patient Education: Patient Medication Summary Completed 02/28/2016 Appointment: Valentina Smith WPtel: [phone] (30 min) Complex 02/27/2016 Visit Plan: Hypertension [...] d level 02/13/2016 Appointment: Valentina Smith WPtel: [phone] (30 min) Complex 02/13/2016 Patient Education: Patient Medication Summary Completed 02/13/2016 Patient Education: Obesity Completed 02/13/2016 Care Plan: Tsh Pending 02/13/2016 Care Plan: Lipid Pending 02/13/2016 Care Plan: Comp Metabolic patient to come fasting Pending 02/13/2016 Care Plan: Vitamin D 25 Oh Cancelled 02/13/2016 Care Plan: Cbc With Differential Pending 02/13/2016 Patient Education: Patient Medication Summary Completed 02/03/2016 Care Plan: SCREENINGMAMMOGRAPHYDIGITAL LOINC : 82440-9 Pending 02/03/2016 Appointment: Injection 01/15/2016 Appointment: Lab [...] EXAM NECK SPINE 2-3 VW LOINC : 99174-8 Ordered 08/15/2015 Visit Plan: Anxiety-fairly well controlled-does [...] side effects. 05/08/2015 Appointment: Aicha Thompson WPtel: [facility] (30 min) Complex 05/08/2015 Patient Education: [...] Care Plan: COMPLETE CBC AUTOMATED LOINC : 58824-6 Ordered 10/05/2014 Visit Plan: Chronic Pain Syndrome - pt has chronic pain - has been maintained on current medications, has not sought out other medications , only uses PRN pain medications as directed, and understands the consequences of over-medication. Right hip/knee/ankle pain-improving since last fall- continue physical therapy exercises-continue supportive shoes and use walker for stability 06/14/2014 Appointment: Valentina Smith WPtel: [phone] Follow up 06/14/2014 Patient Education: Patient Medication [...] the instructions given to her from her mental health technician and she is to call him if her constipation is uncontrolled. Hemorrhoids-use suppositories as directed. 01/19/2014 Patient Education: Patient Medication Summary Completed 01/19/2014 Visit Plan: Ulcer of yikc-mrhtiys-ztpau instructions provided today and instructed patient to return as directed-keep wound clean and dry. Hemorrhoids-refill anusol suppositories and use as directed B12 deficiency-b12 injection today in the office Gfwrpbrkn-pknwzyivymmr-yxwurzs injection today in the office-continue oral medications [...] Anemia-check labs 10/20/2013 Appointment: Valentina Smith WPtel: [address] [place], [place] [phone] [place] Other 10/20/2013 Patient Education: Patient Medication Summary Completed 10/20/2013 Appointment: Valentina Smith WPtel: [phone] [place] Injection 08/21/2013 Appointment: Aicha Thompson WPtel: [address] [place], [place] [phone] [place] Follow up 07/31/2013 Visit Plan: Ulcer of knee healing-silver nitrate to granulation tissue-instructed patient to monitor and call if it does not completely heal for appointment-instructed on wound care-patient and mother verbalized understanding of plan. 07/24/2013 Patient Education: Patient Medication Summary Completed 07/24/2013 Patient Education: Patient Medication Summary Completed 07/24/2013 Appointment: Valentina Smith WPtel: [address] [place], [place] [phone] Follow up 07/03/2013 Visit Plan: Ulcer-left knee-fibrous tissue removed from wound bed to reveal pink granulation tissue-wound cleansed and dressing applied. Instructed patient on wound care. Return in 10 days for follow up. 06/23/2013 Appointment: Valentina Smith WPtel: [address] [place], [place] [phone] Follow up 06/23/2013 Patient Education: Patient Medication Summary Completed 06/23/2013 Appointment: Valentina Smith WPtel: [address] [place], [place] [phone] Follow up 06/22/2013 Appointment: Aicha Thompson WPtel: [address] [place] [phone] Follow up 06/22/2013 Visit Plan: Ulcer-left knee-fibrous tissue removed from wound bed to reveal pink granulation tissue-wound cleansed and dressing applied. Instructed patient on wound care. Return in 10 days for follow up. 06/12/2013 Appointment: Valentina Smith WPtel: [address] [place], [place] [phone] Follow up 06/12/2013 Patient Education: Patient Medication Summary Completed 06/12/2013 Appointment: Aicha Thompson WPtel: [address] [place] [phone] Follow up 06/08/2013 Visit Plan: Ulcer left prxv-ycdtkchi-f/u in 10 days 05/29/2013 Appointment: Valentina Smith WPtel: [address] [place], [place] [phone] Follow up 05/29/2013 Patient Education: Patient Medication Summary Completed 05/29/2013 Visit Plan: Ulcer of knee-sharp debridement today in the office--wound care instructions provided for patient-patient and mother verbalized understanding of plan. Follow up next week. 05/23/2013 Appointment: Valentina Smith WPtel: [address] [place], [place] [phone] Follow up 05/23/2013 Patient Education: Patient Medication Summary Completed 05/23/2013 Appointment: Valentina Smith WPtel: [address] [place] [phone] [place] [address] Follow up 05/22/2013 Visit Plan: Ulcer of knee-wound care instructions provided for patient-patient and mother verbalized understanding of plan. 05/19/2013 Appointment: Valentina Smith WPtel: [address] [place] [phone] [place] [address] Other 05/19/2013 Patient Education: Patient Medication Summary Completed 05/19/2013 Visit Plan: Ulcer of knee-fibrous tissue debrided today in the office--wound care instructions provided for patient-return in 1 week for follow up. 05/16/2013 Appointment: Valentina Smith WPtel: [address] [place], [place] [phone] [place] [address] Hospital follow up 05/16/2013 Patient Education: Patient Medication Summary Completed 05/16/2013 Appointment: Aicha Thompson WPtel: [address] [place], [place] [phone] [place] Injection 05/10/2013 Patient Education: Patient Medication [...] the office. 03/06/2013 Appointment: Valentina Smith WPtel: [address] [place], [place] [phone] Other 03/06/2013 Patient Education: Patient Medication Summary Completed 03/06/2013 Appointment: Aicha Thompson WPtel: [address] [place], [place] [phone] Nurse Visit 02/20/2013 Patient Education: Patient Medication Summary Completed 02/20/2013 Appointment: [facility] Thompson [facility]el[phone] [place] Follow up 01/16/2013 Visit Plan: Joint [...] concerns. 12/26/2012 Appointment: [facility]ich[facility] Thompson [facility]Ptel[phone] [place] Other 12/26/2012 Patient Education: Patient Medication Summary Completed 12/26/2012 Patient Education: Hypertension Completed 12/26/2012 Appointment: [facility]ich[facility] Thompson [facility]Ptel[phone] Lab Draw 12/21/2012 Patient Education: Patient [...] acute changes 11/21/2012 Appointment: Aicha Thompson WPtel: [facility] [place] [facility] [place] Follow up 11/21/2012 Patient Education: Patient Medication Summary Completed 11/21/2012 Patient Education: Hypertension Completed 11/21/2012 Appointment: Aicha Thompson WPtel: [facility] [place] [facility] [place] Injection 11/16/2012 Patient Education: Patient Medication Summary Completed 11/16/2012 Appointment: Aicha Thompson WPtel: [facility] [place] [facility] [place] Injection 09/28/2012 Patient Education: Patient Medication Summary Completed 09/28/2012 Appointment: Aicha Thompson WPtel: [facility] [facility] [place] Injection 09/26/2012 Patient Education: Patient Medication Summary Completed 09/26/2012 Appointment: Aicha Thompson WPtel: [facility] [place] [facility] [place] Injection 09/12/2012 Patient Education: Patient Medication Summary Completed 09/12/2012 Appointment: Aicha Thompson WPtel: [facility] [place] [facility] [place] Injection 08/11/2012 Patient Education: Patient [...] management sparingly. 07/13/2012 Appointment: Aicha Thompson WPtel: [address] [place], [place] [phone] Other 07/13/2012 Patient Education: Patient Medication Summary [...] in medications 05/26/2012 Appointment: Valentina Smith WPtel: [address] [place], [place] [phone] Other 05/26/2012 Patient Education: Patient Medication Summary Completed 05/26/2012 Appointment: Valentina Smith WPtel: [address] [place], [place] [phone] Sick 03/15/2012 Appointment: Aicha Thompson [facility]Ptel: [facility] [place] [facility] [place] Injection 03/02/2012 Patient Education: Patient Medication [...] the medication. 02/15/2012 Appointment: Valentina Smith WPtel: [address] [phone] Other 02/15/2012 Patient Education: Patient Medication Summary [...] to medications 01/13/2012 Appointment: Valentina Smith WPtel: [phone] [place] Other 01/13/2012 Patient Education: Patient Medication Summary Completed 01/13/2012 Appointment: Valentina Smith WPtel: [phone] Other 01/06/2012 Visit Plan: Asthma - chest xray and symbicort sample today. Patellofemoral syndrome- recommended physical therapy. Costochondritis - recommended pt to use antiinflammatories as able for treatment of rib/sternum irritation and for pt to call if her symptoms do not improve. 12/21/2011 Appointment: [facility]ich[facility] Thompson [facility]Ptel[facility] [place] [facility] Other 12/21/2011 Patient Education: Patient Medication Summary [...] office. 10/02/2011 Appointment: Valentina Smith WPtel: [address] [phone] Other 10/02/2011 Patient Education: Patient Medication Summary Completed 10/02/2011 Visit Plan: Pain in joints-arms, elbows-recent fall- discussed natural and expected course of this diagnosis and to alert me if symptoms do not follow expected course, or if any worse. Patient verbalized understanding. Neck bikv-kwxljkd-crfrlewbs physical therapy-patient declined at this time-going to see the dietitian teacher this afternoon. B12 deficiency-B12 injection today in the office. 09/01/2011 Appointment: Valentina Smith WPtel: 101 [phone] Other 09/01/2011 Patient Education: Patient Medication [...] management sparingly. 08/03/2011 Appointment: Aicha Thompson WPtel: [address] [place], [place] [phone] Follow up 08/03/2011 Patient Education: Patient Medication [...] HER PAIN. 06/29/2011 Appointment: Aicha Thompson WPtel: [address] [place], [place] [phone] [place] Follow up 06/29/2011 Patient Education: Patient Medication Summary Completed 06/29/2011 Appointment: Aicha Thompson WPtel: [address] [place], [place] [phone] Other 06/24/2011 Visit Plan: Right knee pain, bilateral wrist pain-recent fall-discussed natural and expected course of this diagnosis and to alert me if symptoms do not follow expected course, or if any worse. Patient verbalized understanding. Recommend follow up with Ortho physician if pain persists. 06/22/2011 Appointment: Valentina Smith WPtel: [phone] [place] Other 06/22/2011 Patient Education: Patient Medication Summary Completed 06/22/2011 Visit Plan: Knee and Ankle pain and instability- recommend re-evaluation by an desktop support specialist at [facility] of the [address] [place] [address]. Pt has been recommended to go back to Dr. Corbin at [facility] of the [address] [place] [address] as my office did not get a [...] fibromyalgia. 06/11/2011 Appointment: Aicha Thompson WPtel: [address] [facility] [place] Injection 06/11/2011 Appointment: [facility]ich[facility] Thompson [facility]Ptel: [facility] [place] [facility] [place] Other 06/11/2011 Patient Education: Patient Medication Summary Completed 06/11/2011 Visit Plan: Knee and Ankle pain and instability- recommend evaluation by an desktop support specialist at [facility] of the [address] [place] [address]. The pt has been previously referred to [...] physical appearance. 03/11/2011 Appointment: Aicha Thompson WPtel: [facility] Other 03/11/2011 Patient Education: Patient Medication Summary Completed 03/11/2011 Patient Education: .Amazing charts Diabetic meal planning guide Completed 03/11 Appointment: Aicha Thompson WPtel: [id number] [place] Injection 02/23/2011 Patient Education: Patient Medication Summary Completed 02/23/2011 Visit Plan: iliotibial band syndrome - continue with current treatment per dietitian teacher. I have recommend use of biofreeze to the right outer leg. I have given pt stretching exercises for home. Fibromyalgia - chronic - continue with exercise, heat, and prn pain medication. Knee pain - apparently resolved prior to her appointment today. No change in present management, call if pain returns. 02/12/2011 Appointment: Aicha Thompson WPtel: [id number] Other 02/12/2011 Patient Education: Patient Medication Summary [...] Medication Summary Completed 01/29/2011 Instructions Comment . Hypertension - well controlled - continue [...] B12 injection today in the office . Hemorrhoidal skin tag-no acute inflammation today -may use hemorrhoid cream as directed as needed-call with any concerns, bleeding, etc. . Hypertension - well controlled - continue [...] Mary to keep appts with her psychiatrist. . Teddy referral - pt to indicate when and who she would like to go to - for neck and back AFO for both legs - [facility] in [place], [place]- fax # [phone] pt has been seen by software quality assurance specialist - need brace because of bilateral [...] and understands the consequences of over-medication. . Headaches-neck pain-patient is to let us know which neurologist she wants to see B12 def-injection today in the office Hyperlipidemia-check labs Vitamin D def-check level USE BACTROBAN (MUPIROCIN) OINTMENT ON ABRASION LEFT KNEE TWICE DAILY UNTIL HEALED REFER TO PHYSICAL THERAPY FOR RIGHT KNEE AND ANKLE PAIN-STRENGTHENING IN RIGHT LEG . Abrasion of left knee-RX for bactroban twice daily-keep clean and dry and call if does not resolve. Right knee and ankle weakness/pain-recommend physical therapy for strengthening Dr Saunders -[facility] . Bilateral foot and ankle pain-now has AFOs-we have made her several appt with podiatrists which she has not kept-recommend patient call Dr Saunders and reschedule appt with him. Neck pain-[facility] appt next week-KEEP APPOINTMENT! sleep study -[facility] . Headaches-patient is not wearing her CPAP and i suspect this may be contributing to her headaches-will contact [facility] for a new sleep study Neck pain -spinal stenosis -[facility] has attempted to contact patient with no response from Mary-I have instructed her to call them and get appt scheduled . Ulcer left swle-hyzixwnc-c/u in 10 days . Chronic Depression and anxiety - the [...] blood pressure readings at home. . Neck pain-plan to xray cervical spine-refer [...] Vitamin d deficiency-check vitamin d level . Hypertension - well controlled - continue [...] directed, and understands the consequences of over-medication. Racielithmbale is to continue to taper down on the hydrocodone - down to 2 a day and 6 tramadol and 3 diazepam and next week she will be down to 2 diazepam and after that we will continue have her taper off of the hydrocodone. . Chronic Pain Syndrome - pt has chronic pain - has been maintained on current medications, has not sought out other medications, only uses PRN pain medications as directed, and understands the consequences of over- medication. Right hip/knee/ankle pain-improving since last fall-continue physical therapy exercises-continue supportive shoes and use walker for stability . iliotibial band syndrome - continue with current treatment per dietitian teacher. I have recommend use of biofreeze to the right outer leg. I have given pt stretching exercises for home. Fibromyalgia - chronic - continue with exercise, heat, and prn pain medication. Knee pain -apparently resolved prior to her appointment today. No change in present management, call if pain returns. . Anxiety-fairly well controlled-does have added stress [...] the instructions given to her from her mental health technician and she is to call him if her constipation is uncontrolled. Hemorrhoids-use suppositories as directed. . Foot pain and SI joint pain [...] for pain control and symptom management sparingly. INCREASE HYDROCODONE TO 5 TABS/DAY-IF PAIN UNCONTROLLED, [...] for pain control and symptom management sparingly. MAKE APPOINTMENT CALLY KELLY/DR IBARRA TO FOLLOW [...] for PT-recommend appt with Dr Ibarra . Chronic Depression and anxiety - the [...] at home. Hyperlipidemia - check labs . URI - viral-Pt advised to increase fluids, vitamin C. Discussed natural and expected course of this diagnosis and need to alert me if symptoms do not follow expected course, or if any worse. Note written for DME to explain why she has been unable to wear her CPAP the past few days. Nyejabe-welomfj-rksppjjal patient continue taper of medication as discussed with Dr Thompson -continue counseling . Low back pain-discussed need to evaluate cervical issues first-may benefit from PT-continue anti inflammatories as directed Cervical stenosis-called Dr Ramey's office-referral pending-they will call the patient with the appt . Knee and Ankle pain and instability- recommend re- evaluation by an desktop support specialist at [facility] of the [address] [place] [address]. Pt has been recommended to go back to Dr. Corbin at [facility] of the [address] [place] [address] as my office did not get a [...] savella for treatment of fibromyalgia. REFER TO [facility] BILATERAL FOOT AND ANKLE PAIN . Bilateral foot pain-foot drop-patient getting AFOs-refer to podiatry for evaluation-wants to see someone in [place] [facility] [...] the list of the neurologists that her diving fisher has recommended and we would consider a [...] the list of the neurologists that her diving fisher has recommended and we would consider a [...] if any worse. Patient verbalized understanding. Neck fvkf-fjubdof-zuepmptzn physical therapy-patient declined at this time- going to see the dietitian teacher this afternoon. B12 deficiency-B12 injection today in [...] Kenalog injection today in the office. . Knee and Ankle pain and instability- recommend evaluation by an desktop support specialist at [facility] of the 4 [...] abdominal obesity versus her usual physical appearance. look for creams or rubs with chamomile or willow bark or lavender - two old goats (may be called three old goats) at [employer] and home. . Hypertension - well controlled [...] of msm due to possible side effects. B12 injection . Neck shtb-fgngbfq-pbtqduq to continue f/u with -her symptoms have resolved since her recent fall [...] Anxiety-controlled on current regimen-no changes in medications Check labs-cbc, cmp, tsh, lipid panel-I gave you a prescription to take to [facility] lab. DO NOT EAT 8-12 hours before [...] situational exposure. No change in current medications. EMG referral to [facility] . Hypertension - well controlled - continue with current medications, continue with no added salt diet. Pt has been encouraged to exercise daily. The pt has been advised to call the office if there are any acute concerns about change in blood pressure readings at home. Cervical stenosis-refer to [facility] Lumbar radiculopathy-right leg pain/numbness-refer for EMG testing-will see if Dr Pope does testing DEMETRIA WRAPS TO LOWER LEGS CUT BACK [...] up in 1 month Anemia-check labs . Ulcer of mmne-yqwhyza-svodd instructions provided today and instructed patient to return as directed-keep wound clean and dry. Hemorrhoids-refill anusol suppositories and use as directed B12 deficiency-b12 injection today in the office Eppiligib-bpdwjsakhlbg-hdvvnks injection today in the office-continue oral medications as directed . Ulcer of knee healing-silver nitrate to granulation tissue-instructed patient to monitor and call if it does not completely heal for appointment-instructed on wound care-patient and mother verbalized understanding of plan. . Generalized abd qfvj-LDV-dnepyz cipro/flagyl-culture urine-recommend patient follow up with Dr Grace for an appt if abdominal pain does not improve Low potassium-check labs . Generalized abd jxaw-NQS-xxvgne cipro/flagyl-culture urine-recommend patient follow up with Dr [...] patient is stable, monitor for acute changes . Ulcer of knee-sharp debridement today in [...] NOT LET OTHERS KNOW OF HER PAIN. Dr. Ramey - [facility] . Hypertension - well controlled - [...] to send her to for further evaluation B12 INJECTION TODAY . Chronic Depression and [...] wall pain-xray ribs negative-continue to monitor symptoms Check chest xray Take your nexium in [...] patient-return in 1 week for follow up. . Contact dermatitis-discussed natural and expected course [...] as directed -follow up in 2 weeks May use tylenol as needed for pain [...] in blood pressure readings at home. . Asthma - chest xray and symbicort [...]
--- NOTE | 2018-08-03 06:56 | NUR ---
DR FRIED IN ROOM WITH PT AT THIS TIME.
[2018-08-03 07:04] VITALS: BP 115/75
--- OUTSIDE RECORDS SUMMARY | 2018-08-03 07:09 | XMS REPORT | CCD ---
Author Author [facility]a Thompson Organization [facility] Address [address] [place] [address] Phone Care Team Providers Care Last Model Maker Name Role Phone PP Unavailable CCM Unavailable Summary Purpose Interface Exchange Insurance Providers Payer name Policy type / Coverage type Covered constitution party ID Effective Begin Date Effective End Date WPS Medicare Part B Medicare Part B [id number] 2013 Unknown [facility] Medicare Part B [id number] 2013 Unknown Family history Grandmother Diagnosis Age [...] status Unknown 01/29/[address]: 493972460 Never smoker 01/29/[address]: 862427 Currently drinks alcohol mixed drink before bed [...] ICD-9: 401.9 ICD-10: I10 Active 02/12/2016 Unknown Generalized anxiety disorder ICD-9: 300.02 ICD-10: F41.1 Active 06/01/2018 Unknown Low back pain ICD-9: 724.2 ICD-10: [...] sleep apnea Unknown Active 05/14/2011 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/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 Unknown Overweight (BMI [...] hypertension ICD-9: 401.9 ICD-10: I10 02/12/2016 Active Generalized anxiety disorder ICD-9: 300.02 ICD-10: F41.1 06/01/2018 Active Low back pain ICD-9: 724.2 ICD-10: [...] Active sleep apnea Unknown 05/14/2011 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 03/11/2011 Active Overweight (BMI 25.0-29.9) [...] Fill Instructions diazepam 5 mg tablet RxNorm: 673622 2 Tablet(s) (10 mg) PO QAM and 1 Tablet (5 mg ) PO QHS 06/15/2018 07/05/2018 Active Claritin-D 12 Hour 5 mg-120 mg tablet,extended release RxNorm: 3863941 Tablet(s) as needed TAKE 1 TABLET BY MOUTH TWICE DAILY NEEDED 201808/13/2018 Active Lipitor 20 mg tablet RxNorm: 512396 1 TABLET(S) PO DAILY 201705/12/2019 Active TAKE ONE TABLET BY MOUTH EVERY NIGHT AT BEDTIME tramadol 50 mg tablet RxNorm: 634664 1-2 Tablet(s) PO TID as needed 04/20/2018 06/18/2018 Active Valium 10 mg tablet RxNorm: 502854 1 Tablet(s) daily as needed 04/18/2018 05/31/2018 Inactive hydrocodone 10 mg-acetaminophen 325 mg tablet RxNorm: 140337 1 tab bid x 1 week then daily x 2 weeks then stop Tablet(s) PO Q6 for pain 04/1805/10/2018 Inactive diazepam 10 mg tablet RxNorm: 791927 1 Tablet(s) BID 04/18/2018 06/14/2018 Inactive Claritin-D 12 Hour 5 mg-120 mg tablet,extended release RxNorm: 3531343 Tablet(s) as needed TAKE 1 TABLET BY MOUTH TWICE DAILY NEEDED 201706/12/2018 Inactive tramadol 50 mg tablet RxNorm: 832451 1-2 Tablet(s) PO TID as needed 03/10/2018 04/07/2018 Inactive cyanocobalamin (vit B-12) 1,000 mcg/mL injection solution RxNorm: 349794 1 Milliliter(s) Inj 03/10/2018 03/10/2018 Inactive Seroquel 100 mg tablet RxNorm: 640046 1 TABLET(S) PO BID 201703/01/2019 Active TAKE 1 TABLET BY MOUTH TWICE DAILY hydrocodone 10 mg-acetaminophen 325 mg tablet RxNorm: 113024 1-2 Tablet(s) PO Q6 as needed for pain 02/21/2018 03/09/2018 Inactive Ventolin HFA 90 mcg/actuation aerosol inhaler RxNorm: 706057 1 OR 2 PUFF(S) INH Q6 PRN NEEDED 01/13/2018 07/11/2018 Active trazodone 100 mg tablet RxNorm: 754749 TABLET(S) TAKE 2 TABLETS BY MOUTH EVERY NIGHT AT BEDTIME 12/07/2017 09/02/2018 Active hydrocodone 10 mg-acetaminophen 325 mg tablet RxNorm: 009286 1-2 Tablet(s) PO Q6 as needed for pain 12/03/2017 12/25/2017 Inactive Ventolin HFA 90 mcg/actuation aerosol inhaler RxNorm: 606955 1 OR 2 PUFF(S) INH Q6 PRN NEEDED 11/26/2017 01/12/2018 Inactive Savella 100 mg tablet RxNorm: 133691 TABLET(S) PO TAKE 1 TABLET BY MOUTH DAILY 11/23/2017 No Stop Date Active Effexor XR 150 mg capsule,extended release RxNorm: 815389 1 CAPSULE(S) PO BID 1 CAPSULE(S) PO BID 11/23/2017 04/21/2018 Inactive TAKE 1 CAPSULE BY MOUTH TWICE DAILY diazepam 10 mg tablet RxNorm: 920279 Tablet(s) TAKE 1 TABLET BY MOUTH FOUR TIMES DAILY NEEDED 11/23/2017 03/09/2018 Inactive Claritin-D 12 Hour 5 mg-120 mg tablet,extended release RxNorm: 5862506 Tablet(s) as needed TAKE 1 TABLET BY MOUTH TWICE DAILY NEEDED 201706/14/2018 Inactive Valium 10 mg tablet RxNorm: 643167 1 Tablet(s) QID as needed 11/16/2017 01/14/2018 Inactive metoprolol tartrate 25 mg tablet RxNorm: 974164 TABLET(S) TABLET(S) 1/2 TABLET(S) PO BID TAKE 1/2 TABLET BY MOUTH TWICE DAILY 11/12/2017 No Stop Date Active pantoprazole 40 mg tablet,delayed release RxNorm: 156655 TAKE 1 TABLET BY MOUTH EVERY DAY 11/12/2017 05/10/2018 Inactive betamethasone dipropionate 0.05 % topical cream RxNorm: 039896 1 APPLICATION TOP BID 10/22/2017 11/04/2017 Inactive tramadol 50 mg tablet RxNorm: 873866 1-2 Tablet(s) PO TID as needed 10/20/2017 01/16/2018 Inactive prednisone 10 mg tablets in a dose pack RxNorm: 394306 1 Tablet(s) PO UD 10/19/2017 10/24/2017 Inactive 6-5-4-3-2-1 cyanocobalamin (vit B-12) 1,000 mcg/mL injection solution RxNorm: 803888 1 Milliliter(s) Inj 10/19/2017 10/19/2017 Inactive betamethasone dipropionate 0.05 % topical cream RxNorm: 293344 1 Application TOP BID 10/19/2017 10/21/2017 Inactive hydrocodone 10 mg-acetaminophen 325 mg tablet RxNorm: 427119 1-2 Tablet(s) PO Q6 as needed for pain 10/19/2017 11/10/2017 Inactive Effexor XR 150 mg capsule,extended release RxNorm: 348537 1 Capsule(s) PO BID 1 CAPSULE(S) PO BID 10/19/2017 11/22/2017 Inactive TAKE 1 CAPSULE BY MOUTH TWICE DAILY prednisone 5 mg tablet RxNorm: 721596 1 Tablet(s) PO UD 2017 No Stop Date Active Cipro 500 mg tablet RxNorm: 525869 1 Tablet(s) PO BID 201709/26/2017 Inactive Flagyl 500 mg tablet RxNorm: 039073 1 Tablet(s) PO TID 201709/26/2017 Inactive prednisone 10 mg tablet RxNorm: 981818 1 Tablet(s) PO UD 201709/16/2017 Inactive 2 tabs daily x 3 days 1 tab daily x 3 daily then resume usual 5mg daily hydrocodone 10 mg-acetaminophen 325 mg tablet RxNorm: 830400 1-2 Tablet(s) PO Q6 as needed for pain 09/10/2017 10/02/2017 Inactive Savella 100 mg tablet RxNorm: 844512 TABLET(S) PO TAKE 1 TABLET BY MOUTH DAILY 08/31/2017 No Stop Date Active cyanocobalamin (vit B-12) 1,000 mcg/mL injection solution RxNorm: 315810 1 Milliliter(s) Inj 08/19/2017 08/19/2017 Inactive pantoprazole 40 mg tablet,delayed release RxNorm: 703913 TAKE 1 TABLET BY MOUTH EVERY DAY 08/17/2017 11/11/2017 Inactive trazodone 100 mg tablet RxNorm: 090080 TABLET(S) TAKE 2 TABLETS BY MOUTH EVERY NIGHT AT BEDTIME 08/17/2017 12/06/2017 Inactive Ventolin HFA 90 mcg/actuation aerosol inhaler RxNorm: 881816 1 OR 2 PUFF(S) INH Q6 PRN NEEDED 08/11/2017 01/07/2018 Inactive Advair Diskus 250 mcg-50 mcg/dose powder for inhalation RxNorm: 5200477 1 Puff(s) INH BID 08/11/2017 12/08/2017 Inactive Advair Diskus 250 mcg-50 mcg/dose powder for inhalation RxNorm: 6816382 1 PUFF(S) INH BID 08/11/2017 11/08/2017 Inactive Ventolin HFA 90 mcg/actuation aerosol inhaler RxNorm: 317269 1 OR 2 PUFF(S) INH Q6 PRN NEEDED 08/11/2017 11/25/2017 Inactive hydrocodone 10 mg-acetaminophen 325 mg tablet RxNorm: 528661 1-2 Tablet(s) PO Q6 as needed for pain 08/03/2017 08/25/2017 Inactive tramadol 50 mg tablet RxNorm: 442206 1-2 Tablet(s) PO TID as needed 07/26/2017 04/19/2018 Inactive Valium 10 mg tablet RxNorm: 863802 1 Tablet(s) QID as needed 07/09/2017 09/06/2017 Inactive Effexor XR 150 mg capsule,extended release RxNorm: 139237 Capsule(s) 1 CAPSULE(S) PO BID 07/07/2017 10/18/2017 Inactive TAKE 1 CAPSULE BY MOUTH TWICE DAILY metoprolol tartrate 25 mg tablet RxNorm: 439538 Tablet(s) TABLET(S) 1/2 TABLET(S) PO BID TAKE 1/2 TABLET BY MOUTH TWICE DAILY 07/07/2017 11/11/2017 Inactive diazepam 10 mg tablet RxNorm: 468644 Tablet(s) TAKE 1 TABLET BY MOUTH FOUR TIMES DAILY NEEDED 07/07/2017 08/02/2017 Inactive cyanocobalamin (vit B-12) 1,000 mcg/mL injection solution RxNorm: 956042 1 Milliliter(s) Inj 07/06/2017 07/06/2017 Inactive tramadol 50 mg tablet RxNorm: 407700 1-2 Tablet(s) PO TID as needed 06/21/2017 09/17/2017 Inactive hydrocodone 10 mg-acetaminophen 325 mg tablet RxNorm: 325227 1-2 Tablet(s) PO Q6 as needed for pain 06/17/2017 07/09/2017 Inactive cyclobenzaprine 10 mg tablet RxNorm: 419929 TAKE 1 TABLET BY MOUTH THREE TIMES DAILY NEEDED FOR MUSCLE SPASMS 06/08/2017 08/31/2018 Active Claritin-D 12 Hour 5 mg-120 mg tablet,extended release RxNorm: 8807310 Tablet(s) as needed TAKE 1 TABLET BY MOUTH TWICE DAILY NEEDED 201709/04/2017 Inactive Lipitor 20 mg tablet RxNorm: 613864 1 TABLET(S) PO DAILY 201705/17/2018 Inactive TAKE ONE TABLET BY MOUTH EVERY NIGHT AT BEDTIME trazodone 100 mg tablet RxNorm: 594948 TABLET(S) TAKE 2 TABLETS BY MOUTH EVERY NIGHT AT BEDTIME 05/17/2017 08/14/2017 Inactive cyclobenzaprine 5 mg tablet RxNorm: 438475 Tablet(s) PO TAKE 1 TABLET BY MOUTH THREE TIMES DAILY NEEDED FOR MUSCLE SPASMS (New dose has not been sent to pharmacy) 05/11/2017 No Stop Date Active Valium 5 mg tablet RxNorm: 867430 1 Tablet(s) PO QID as needed (New dose has not been sent to pharmacy) 05/11/2017 Inactive diazepam 10 mg tablet RxNorm: 980516 TAKE 1 TABLET BY MOUTH FOUR TIMES DAILY NEEDED 04/28/2017 05/27/2017 Inactive hydrocodone 10 mg-acetaminophen 325 mg tablet RxNorm: 299547 1-2 Tablet(s) PO Q6 as needed for pain 04/27/2017 05/19/2017 Inactive cyanocobalamin (vit B-12) 1,000 mcg/mL injection solution RxNorm: 796512 1 Milliliter(s) Inj 04/27/2017 04/27/2017 Inactive hydrocodone 10 mg-acetaminophen 325 mg tablet RxNorm: 688466 1-2 Tablet(s) PO Q6 as needed for pain 03/17/2017 04/08/2017 Inactive Seroquel 100 mg tablet RxNorm: 954393 1 TABLET(S) PO BID 201603/06/2018 Inactive TAKE 1 TABLET BY MOUTH TWICE DAILY Valium 10 mg tablet RxNorm: 322139 1 Tablet(s) QID as needed 03/05/2017 05/03/2017 Inactive Claritin-D 12 Hour 5 mg-120 mg tablet,extended release RxNorm: 5996316 Tablet(s) as needed TAKE 1 TABLET BY MOUTH TWICE DAILY NEEDED 201604/13/2018 Inactive pantoprazole 40 mg tablet,delayed release RxNorm: 684082 TAKE 1 TABLET BY MOUTH EVERY DAY 02/26/2017 08/16/2017 Inactive tramadol 50 mg tablet RxNorm: 657061 1-2 Tablet(s) PO TID as needed 02/17/2017 05/17/2017 Inactive hydrocodone 10 mg-acetaminophen 325 mg tablet RxNorm: 596847 1-2 Tablet(s) PO Q6 as needed for pain 02/17/2017 03/11/2017 Inactive Valium 10 mg tablet RxNorm: 914008 1 Tablet(s) QID as needed 02/02/2017 03/03/2017 Inactive (Response to an electronic controlled substance refill request [id number]|[id number]|1|0|1) nystatin 100,000 unit/gram topical powder RxNorm: 374537 1 APPLICATION TOP QID UNTIL HEALED 01/21/2017 No Stop Date Active Advair Diskus 250 mcg-50 mcg/dose powder for inhalation RxNorm: 1557961 1 Puff(s) INH BID 01/21/2017 05/20/2017 Inactive hydrocodone 10 mg-acetaminophen 325 mg tablet RxNorm: 036827 1-2 Tablet(s) PO Q6 as needed for pain 01/21/2017 02/11/2017 Inactive metoprolol tartrate 25 mg tablet RxNorm: 594058 TABLET(S) 1/2 TABLET(S) PO BID TAKE 1/2 TABLET BY MOUTH TWICE DAILY 01/18/2017 07/06/2017 Inactive Effexor XR 150 mg capsule,extended release RxNorm: 208017 1 CAPSULE(S) PO BID 01/11/2017 07/06/2017 Inactive TAKE 1 CAPSULE BY MOUTH TWICE DAILY Effexor XR 150 mg capsule,extended release RxNorm: 138207 1 Capsule(s) PO BID 1 CAPSULE(S) PO BID 01/08/2017 07/06/2017 Inactive TAKE 1 CAPSULE BY MOUTH TWICE DAILY nystatin 100,000 unit/gram topical powder RxNorm: 932638 1 APPLICATION TOP QID UNTIL HEALED 12/17/2016 01/20/2017 Inactive hydrocodone 10 mg-acetaminophen 325 mg tablet RxNorm: 597209 1-2 Tablet(s) PO Q6 as needed for pain 12/17/2016 01/07/2017 Inactive Claritin-D 12 Hour 5 mg-120 mg tablet,extended release RxNorm: 2952755 Tablet(s) as needed TAKE 1 TABLET BY MOUTH TWICE DAILY NEEDED 201602/12/2017 Inactive Lipitor 20 mg tablet RxNorm: 171578 1 TABLET(S) PO DAILY 201606/07/2017 Inactive TAKE ONE TABLET BY MOUTH EVERY NIGHT AT BEDTIME Advair Diskus 250 mcg-50 mcg/dose powder for inhalation RxNorm: 6013163 1 Puff(s) INH BID 11/26/2016 01/20/2017 Inactive Valium 10 mg tablet RxNorm: 345504 1 Tablet(s) QID as needed 11/24/2016 01/22/2017 Inactive (Response to an electronic controlled substance refill request - RxReferenceNumber: [id number]|1|0|1) cyanocobalamin (vit B-12) 1,000 mcg/mL injection solution RxNorm: 471050 1 Milliliter(s) Inj 11/17/2016 11/17/2016 Inactive tramadol 50 mg tablet RxNorm: 608100 1-2 Tablet(s) PO TID as needed 11/06/2016 10/19/2017 Inactive hydrocodone 10 mg-acetaminophen 325 mg tablet RxNorm: 906798 1-2 Tablet(s) PO Q6 as needed for pain 11/06/2016 11/27/2016 Inactive nystatin 100,000 unit/gram topical powder RxNorm: 642236 1 Application TOP QID until healed 10/27/2016 12/16/2016 Inactive cyanocobalamin (vit B-12) 1,000 mcg/mL injection solution RxNorm: 102054 1 Milliliter(s) Inj 10/12/2016 10/12/2016 Inactive trazodone 100 mg tablet RxNorm: 417703 Tablet(s) TAKE 2 TABLETS BY MOUTH EVERY NIGHT AT BEDTIME 09/24/2016 03/22/2017 Inactive Valium 10 mg tablet RxNorm: 808258 1 Tablet(s) QID as needed 09/24/2016 11/22/2016 Inactive (Response to an electronic controlled substance refill request - RxReferenceNumber: [id number]|1|0|1) Savella 100 mg tablet RxNorm: 900019 TABLET(S) PO TAKE 1 TABLET BY MOUTH DAILY 09/18/2016 08/30/2017 Inactive pantoprazole 40 mg tablet,delayed release RxNorm: 912578 TAKE 1 TABLET BY MOUTH EVERY DAY 09/18/2016 02/25/2017 Inactive cyanocobalamin (vit B-12) 1,000 mcg/mL injection solution RxNorm: 569404 1 Milliliter(s) Inj 09/11/2016 09/11/2016 Inactive hydrocodone 10 mg-acetaminophen 325 mg tablet RxNorm: 944809 1-2 Tablet(s) PO Q6 as needed for pain 08/24/2016 11/05/2016 Inactive (Response to an electronic controlled substance refill request - [id number]|[id number]|1|0|1) Claritin-D 12 Hour 5 mg-120 mg tablet,extended release RxNorm: 5216678 Tablet(s) TAKE 1 TABLET BY MOUTH TWICE DAILY NEEDED 08/13/2016 04/13/2018 Inactive tramadol 50 mg tablet RxNorm: 974266 1-2 Tablet(s) PO TID PRN as needed 08/11/2016 11/05/2016 Inactive metoprolol tartrate 25 mg tablet RxNorm: 953238 TABLET(S) 1/2 TABLET(S) PO BID TAKE 1/2 TABLET BY MOUTH TWICE DAILY 08/10/2016 01/17/2017 Inactive pantoprazole 40 mg tablet,delayed release RxNorm: 289229 TAKE 1 TABLET BY MOUTH EVERY DAY 08/10/2016 11/05/2016 Inactive Savella 100 mg tablet RxNorm: 848846 TABLET(S) PO TAKE 1 TABLET BY MOUTH DAILY 08/10/2016 11/05/2016 Inactive Ventolin HFA 90 mcg/actuation aerosol inhaler RxNorm: 045386 1 OR 2 PUFF(S) INH Q6 PRN NEEDED 08/07/2016 02/02/2017 Inactive Diflucan 150 mg tablet RxNorm: 999815 1 Tablet(s) PO daily 08/201608/13/2016 Inactive nystatin 100,000 unit/mL oral suspension RxNorm: 405699 5 Milliliter(s) PO QID 08/07/2016 08/16/2016 Inactive hydrocodone 10 mg-acetaminophen 325 mg tablet RxNorm: 695594 1-2 Tablet(s) PO Q6 as needed for pain 08/04/2016 08/23/2016 Inactive (Response to an electronic controlled substance refill request - RxReferenceNumber: [id number]|1|0|1) Valium 10 mg tablet RxNorm: 697389 1 Tablet(s) QID as needed 07/20/2016 09/17/2016 Inactive (Response to an electronic controlled substance refill request - RxReferenceNumber: [id number]|1|0|1) tramadol 50 mg tablet RxNorm: 210215 1-2 Tablet(s) PO TID PRN as needed 07/15/2016 11/05/2016 Inactive ok to give 1 month viyljz=670 tablets cyanocobalamin (vit B-12) 1,000 mcg/mL injection solution RxNorm: 755657 Milliliter(s) Inj 07/03/2016 07/03/2016 Inactive Seroquel 100 mg tablet RxNorm: 624809 1 TABLET(S) PO BID 201603/15/2017 Inactive TAKE 1 TABLET BY MOUTH TWICE DAILY hydrocodone 10 mg-acetaminophen 325 mg tablet RxNorm: 153161 1-2 Tablet(s) PO Q6 as needed for pain 06/26/2016 08/03/2016 Inactive (Response to an electronic controlled substance refill request - RxReferenceNumber: [id number]|1|0|1) Valium 10 mg tablet RxNorm: 380351 1 Tablet(s) QID as needed 05/11/2016 07/09/2016 Inactive (Response to an electronic controlled substance refill request - RxReferenceNumber: [id number]|1|0|1) tramadol 50 mg tablet RxNorm: 529445 1-2 Tablet(s) PO TID PRN as needed 05/11/2016 07/08/2016 Inactive ok to give 1 month pcwghe=519 tablets cyclobenzaprine 10 mg tablet RxNorm: 726099 TAKE 1 TABLET BY MOUTH THREE TIMES DAILY NEEDED FOR MUSCLE SPASMS 05/11/2016 05/10/2017 Inactive hydrocodone 10 mg-acetaminophen 325 mg tablet RxNorm: 038062 1-2 Tablet(s) PO Q6 as needed for pain 05/06/2016 06/25/2016 Inactive (Response to an electronic controlled substance refill request - RxReferenceNumber: [id number]|1|0|1) cyanocobalamin (vit B-12) 1,000 mcg/mL injection solution RxNorm: 961032 1 Milliliter(s) Inj 04/20/2016 04/20/2016 Inactive hydrocodone 10 mg-acetaminophen 325 mg tablet RxNorm: 842286 1-2 Tablet(s) PO Q6 as needed for pain 04/03/2016 05/05/2016 Inactive (Response to an electronic controlled substance refill request - RxReferenceNumber: [id number]|1|0|1) pantoprazole 40 mg tablet,delayed release RxNorm: 375779 TAKE 1 TABLET BY MOUTH EVERY DAY 04/02/2016 08/09/2016 Inactive Claritin-D 12 Hour 5 mg-120 mg tablet,extended release RxNorm: 6171914 Tablet(s) TAKE 1 TABLET BY MOUTH TWICE DAILY NEEDED 04/02/2016 11/05/2016 Inactive hydrocodone 10 mg-acetaminophen 325 mg tablet RxNorm: 687247 1-2 Tablet(s) PO Q6 as needed for pain 03/12/2016 04/02/2016 Inactive (Response to an electronic controlled substance refill request - RxReferenceNumber: [id number]|1|0|1) Effexor XR 150 mg capsule,extended release RxNorm: 944915 1 CAPSULE(S) PO BID 03/05/2016 01/07/2017 Inactive TAKE 1 CAPSULE BY MOUTH TWICE DAILY Ventolin HFA 90 mcg/actuation aerosol inhaler RxNorm: 329008 1 OR 2 PUFF(S) INH Q6 PRN NEEDED 02/19/2016 08/06/2016 Inactive cyanocobalamin (vit B-12) 1,000 mcg/mL injection solution RxNorm: 879699 Milliliter(s) Inj 02/13/2016 02/13/2016 Inactive hydrocodone 10 mg-acetaminophen 325 mg tablet RxNorm: 132123 1-2 Tablet(s) PO Q6 as needed for pain 02/05/2016 03/11/2016 Inactive (Response to an electronic controlled substance refill request - RxReferenceNumber: [id number]|1|0|1) Valium 10 mg tablet RxNorm: 273522 1 Tablet(s) QID as needed 02/05/2016 05/04/2016 Inactive (Response to an electronic controlled substance refill request - RxReferenceNumber: [id number]|1|0|1) tramadol 50 mg tablet RxNorm: 985009 1-2 Tablet(s) PO TID PRN as needed 02/05/2016 11/05/2016 Inactive ok to give 1 month zpnnsa=331 tablets hydrocodone 10 mg-acetaminophen 325 mg tablet RxNorm: 481266 1-2 Tablet(s) PO Q6 as needed for pain 01/08/2016 02/04/2016 Inactive (Response to an electronic controlled substance refill request - RxReferenceNumber: [id number]|1|0|1) metoprolol tartrate 25 mg tablet RxNorm: 317175 Tablet(s) 1/2 TABLET(S) PO BID TAKE 1/2 TABLET BY MOUTH TWICE DAILY 01/08/2016 08/09/2016 Inactive Symbicort 160 mcg-4.5 mcg/actuation HFA aerosol inhaler RxNorm: 6676812 2 INH BID 01/03/2016 11/25/2016 Inactive Symbicort 160 mcg-4.5 mcg/actuation HFA aerosol inhaler RxNorm: 8636629 1 INH daily 01/03/2016 01/02/2016 Inactive Lipitor 20 mg tablet RxNorm: 310002 1 TABLET(S) PO DAILY 201506/26/2016 Inactive TAKE ONE TABLET BY MOUTH EVERY NIGHT AT BEDTIME trazodone 100 mg tablet RxNorm: 199730 TAKE 2 TABLETS BY MOUTH EVERY NIGHT AT BEDTIME 12/30/2015 09/23/2016 Inactive Savella 100 mg tablet RxNorm: 602958 TABLET(S) PO TAKE 1 TABLET BY MOUTH DAILY 12/30/2015 08/09/2016 Inactive hydrocodone 10 mg-acetaminophen 325 mg tablet RxNorm: 756801 1-2 Tablet(s) PO Q6 as needed for pain 12/12/2015 01/07/2016 Inactive (Response to an electronic controlled substance refill request - RxReferenceNumber: [id number]|1|0|1) cyanocobalamin (vit B-12) 1,000 mcg/mL injection solution RxNorm: 136919 1 Milliliter(s) Inj 12/02/2015 12/02/2015 Inactive hydrocodone 10 mg-acetaminophen 325 mg tablet RxNorm: 618573 1-2 Tablet(s) PO Q6 as needed for pain 12/02/2015 12/11/2015 Inactive (Response to an electronic controlled substance refill request - RxReferenceNumber: [id number]|1|0|1) Claritin-D 12 Hour 5 mg-120 mg tablet,extended release RxNorm: 2742155 Tablet(s) TAKE 1 TABLET BY MOUTH TWICE DAILY 11/11/2015 11/10/2015 Inactive Claritin-D 12 Hour 5 mg-120 mg tablet,extended release RxNorm: 9918005 Tablet(s) TAKE 1 TABLET BY MOUTH TWICE DAILY NEEDED 11/11/2015 01/06/2016 Inactive tramadol 50 mg tablet RxNorm: 124331 1-2 Tablet(s) PO TID PRN as needed 11/05/2015 11/05/2016 Inactive ok to give 1 month lzjgtp=166 tablets Valium 10 mg tablet RxNorm: 911923 1 Tablet(s) QID as needed 11/05/2015 02/02/2016 Inactive (Response to an electronic controlled substance refill request - RxReferenceNumber: [id number]|1|0|1) cyanocobalamin (vit B-12) 1,000 mcg/mL injection solution RxNorm: 317001 1 Milliliter(s) Inj 10/29/2015 10/29/2015 Inactive hydrocodone 10 mg-acetaminophen 325 mg tablet RxNorm: 923463 1-2 Tablet(s) PO Q6 as needed for pain 10/28/2015 12/01/2015 Inactive (Response to an electronic controlled substance refill request - RxReferenceNumber: [id number]|1|0|1) pantoprazole 40 mg tablet,delayed release RxNorm: 819176 TAKE 1 TABLET BY MOUTH EVERY DAY 10/08/2015 04/01/2016 Inactive Seroquel 100 mg tablet RxNorm: 541564 1 TABLET(S) PO BID 201506/29/2016 Inactive TAKE 1 TABLET BY MOUTH TWICE DAILY trazodone 100 mg tablet RxNorm: 298963 TAKE 2 TABLETS BY MOUTH EVERY NIGHT AT BEDTIME 10/08/2015 10/01/2016 Inactive Lipitor 20 mg tablet RxNorm: 934444 1 TABLET(S) PO DAILY 201504/04/2016 Inactive TAKE ONE TABLET BY MOUTH EVERY NIGHT AT BEDTIME hydrocodone 10 mg-acetaminophen 325 mg tablet RxNorm: 692525 1-2 Tablet(s) PO Q6 as needed for pain 09/19/2015 10/18/2015 Inactive (Response to an electronic controlled substance refill request - RxReferenceNumber: [id number]|1|0|1) Valium 10 mg tablet RxNorm: 736828 1 Tablet(s) QID as needed 09/05/2015 11/03/2015 Inactive (Response to an electronic controlled substance refill request - RxReferenceNumber: [id number]|1|0|1) Savella 100 mg tablet RxNorm: 844069 Tablet(s) PO TAKE 1 TABLET BY MOUTH DAILY 07/19/2015 11/05/2016 Inactive Zithromax Z-Lauro 250 mg tablet RxNorm: 760116 1 Tablet(s) PO UD 07/12/2015 11/04/2015 Inactive z lauro hydrocodone 10 mg-acetaminophen 325 mg tablet RxNorm: 196119 1-2 Tablet(s) PO Q6 as needed for pain 07/10/2015 08/08/2015 Inactive (Response to an electronic controlled substance refill request - RxReferenceNumber: [id number]|1|0|1) tramadol 50 mg tablet RxNorm: 830120 1-2 Tablet(s) PO TID PRN as needed 07/04/2015 11/05/2016 Inactive ok to give 1 month htxloe=287 tablets hydrocodone 10 mg-acetaminophen 325 mg tablet RxNorm: 823054 1-2 Tablet(s) PO Q6 as needed for pain 06/10/2015 07/09/2015 Inactive (Response to an electronic controlled substance refill request - RxReferenceNumber: [id number]|1|0|1) cyanocobalamin (vit B-12) 1,000 mcg/mL injection solution RxNorm: 107818 Milliliter(s) Inj 06/10/2015 06/10/2015 Inactive pantoprazole 40 mg tablet,delayed release RxNorm: 837798 TABLET(S) PO TAKE 1 TABLET BY MOUTH EVERY DAY 06/10/201511/05 Inactive pantoprazole 40 mg tablet,delayed release RxNorm: 416782 Tablet(s) PO TAKE 1 TABLET BY MOUTH EVERY DAY 06/06/201511/05 Inactive tramadol 50 mg tablet RxNorm: 752229 1-2 Tablet(s) PO TID PRN as needed 05/29/2015 06/27/2015 Inactive ok to give 1 month corryz=864 tablets tramadol 50 mg tablet RxNorm: 825295 1-2 Tablet(s) PO Q6 as needed 05/29/2015 06/09/2015 Inactive Valium 10 mg tablet RxNorm: 871017 1 Tablet(s) QID as needed 05/08/2015 07/06/2015 Inactive (Response to an electronic controlled substance refill request - RxReferenceNumber: [id number]|1|0|1) cyclobenzaprine 10 mg tablet RxNorm: 118926 TAKE 1 TABLET BY MOUTH THREE TIMES DAILY NEEDED FOR MUSCLE SPASMS 05/08/2015 05/10/2016 Inactive Effexor XR 150 mg capsule,extended release RxNorm: 011055 1 Capsule(s) PO BID 1 CAPSULE(S) PO BID 05/08/2015 11/05/2016 Inactive TAKE 1 CAPSULE BY MOUTH TWICE DAILY hydrocodone 10 mg-acetaminophen 325 mg tablet RxNorm: 325985 1-2 Tablet(s) PO Q6 as needed for pain 05/08/2015 06/06/2015 Inactive (Response to an electronic controlled substance refill request - RxReferenceNumber: [id number]|1|0|1) metoprolol tartrate 25 mg tablet RxNorm: 333730 1/2 TABLET(S) PO BID TAKE 1/2 TABLET BY MOUTH TWICE DAILY 05/06/201507/2015 Inactive Claritin-D 12 Hour 5 mg-120 mg tablet,extended release RxNorm: 4117062 TAKE 1 TABLET BY MOUTH TWICE DAILY 04/16/201506/2016 Inactive hydrocodone 10 mg-acetaminophen 325 mg tablet RxNorm: 490549 1-2 Tablet(s) PO Q6 as needed for pain 04/15/2015 05/07/2015 Inactive (Response to an electronic controlled substance refill request - RxReferenceNumber: [id number]|1|0|1) pantoprazole 40 mg tablet,delayed release RxNorm: 716128 TABLET(S) PO TAKE 1 TABLET BY MOUTH EVERY DAY 04/08/201506/06 Inactive hydrocodone 10 mg-acetaminophen 325 mg tablet RxNorm: 561000 1 Tablet(s) PO Q4 PRN TAKE 1-2 TABLETS BY MOUTH EVERY 6 HOURS NEEDED FOR PAIN 03/14/2015 04/12/2015 Inactive (Response to an electronic controlled substance refill request - RxReferenceNumber: [id number]|1|0|1) diazepam 10 mg tablet RxNorm: 844133 1 Tablet(s) TID TAKE 1 TABLET BY MOUTH THREE TIMES DAILY NEEDED 02/08/20152016 Inactive (Response to an electronic controlled substance refill request - RxReferenceNumber: [id number]|1|0|1) Effexor XR 150 mg capsule,extended release RxNorm: 489091 1 CAPSULE(S) PO BID 02/07/2015 05/07/2015 Inactive TAKE 1 CAPSULE BY MOUTH TWICE DAILY cyclobenzaprine 10 mg tablet RxNorm: 408381 TAKE 1 TABLET BY MOUTH THREE TIMES DAILY NEEDED FOR MUSCLE SPASMS 02/07/2015 05/07/2015 Inactive pantoprazole 40 mg tablet,delayed release RxNorm: 755810 TABLET(S) PO TAKE 1 TABLET BY MOUTH EVERY DAY 02/07/201504/07 Inactive hydrocodone 10 mg-acetaminophen 325 mg tablet RxNorm: 025653 1 Tablet(s) PO Q4 PRN TAKE 1-2 TABLETS BY MOUTH EVERY 6 HOURS NEEDED FOR PAIN 01/25/2015 02/23/2015 Inactive (Response to an electronic controlled substance refill request - RxReferenceNumber: [id number]|1|0|1) Bactroban Nasal 2 % ointment RxNorm: 507761 1 Application NASAL BID 01/10/2015 01/10/2015 Inactive mupirocin 2 % topical ointment RxNorm: 714046 1 Application TOP TID 1 APPLICATION TOP PRN 01/10/2015 01/19/2015 Inactive disregard order for nasal ointment , use on left knee trazodone 100 mg tablet RxNorm: 057603 TAKE 2 TABLETS BY MOUTH EVERY NIGHT AT BEDTIME 01/08/2015 10/07/2015 Inactive Seroquel 100 mg tablet RxNorm: 402359 1 TABLET(S) PO BID 201410/04/2015 Inactive TAKE 1 TABLET BY MOUTH TWICE DAILY cyclobenzaprine 10 mg tablet RxNorm: 253824 TAKE 1 TABLET BY MOUTH THREE TIMES DAILY NEEDED FOR MUSCLE SPASMS 01/08/2015 02/06/2015 Inactive hydrocodone 10 mg-acetaminophen 325 mg tablet RxNorm: 741631 1 Tablet(s) PO Q4 PRN TAKE 1-2 TABLETS BY MOUTH EVERY 6 HOURS NEEDED FOR PAIN 12/21/2014 01/19/2015 Inactive (Response to an electronic controlled substance refill request - RxReferenceNumber: [id number]|1|0|1) pantoprazole 40 mg tablet,delayed release RxNorm: 547556 TABLET(S) PO TAKE 1 TABLET BY MOUTH EVERY DAY 12/13/201402/06 Inactive Lipitor 20 mg tablet RxNorm: 238036 1 Tablet(s) PO daily 201409/08/2015 Inactive TAKE ONE TABLET BY MOUTH EVERY NIGHT AT BEDTIME Valium 10 mg tablet RxNorm: 803679 1 Tablet(s) QID as needed 12/12/2014 02/09/2015 Inactive (Response to an electronic controlled substance refill request - RxReferenceNumber: [id number]|1|0|1) hydrocodone 10 mg-acetaminophen 325 mg tablet RxNorm: 142973 Tablet(s) TAKE 1-2 TABLETS BY MOUTH EVERY 6 HOURS NEEDED FOR PAIN 12/12/2014 12/20/2014 Inactive ( Response to an electronic controlled substance refill request - RxReferenceNumber: [id number]|1|0|1) Lipitor 20 mg tablet RxNorm: 270152 1 Tablet(s) PO daily 201412/12/2014 Inactive TAKE ONE TABLET BY MOUTH EVERY NIGHT AT BEDTIME pantoprazole 40 mg tablet,delayed release RxNorm: 676079 TABLET(S) PO TAKE 1 TABLET BY MOUTH EVERY DAY 12/06/201411/05 Inactive Savella 100 mg tablet RxNorm: 521512 Tablet(s) PO TAKE 1 TABLET BY MOUTH DAILY 12/06/2014 07/18/2015 Inactive Lipitor 20 mg tablet RxNorm: 820465 1 Tablet(s) PO daily 201412/10/2014 Inactive TAKE ONE TABLET BY MOUTH EVERY NIGHT AT BEDTIME Valium 10 mg tablet RxNorm: 121206 TAKE 1 TABLET BY MOUTH FOUR TIMES DAILY NEEDED FOR ANXIETY 12/06/2014 12/11/2014 Inactive Valium 10 mg tablet RxNorm: 146195 1 Tablet(s) QID as needed 11/13/2014 12/11/2014 Inactive (Response to an electronic controlled substance refill request - RxReferenceNumber: [id number]|1|0|1) hydrocodone 10 mg-acetaminophen 325 mg tablet RxNorm: 287814 Tablet(s) TAKE 1-2 TABLETS BY MOUTH EVERY 6 HOURS NEEDED FOR PAIN 11/13/2014 12/11/2014 Inactive ( Response to an electronic controlled substance refill request - RxReferenceNumber: [id number]|1|0|1) hydrocodone 10 mg-acetaminophen 325 mg tablet RxNorm: 151909 Tablet(s) TAKE 1-2 TABLETS BY MOUTH EVERY 6 HOURS NEEDED FOR PAIN 11/08/2014 11/12/2014 Inactive ( Response to an electronic controlled substance refill request - RxReferenceNumber: [id number]|1|0|1) Valium 10 mg tablet RxNorm: 709662 1 Tablet(s) QID as needed 11/08/2014 11/12/2014 Inactive (Response to an electronic controlled substance refill request - RxReferenceNumber: [id number]|1|0|1) metoprolol tartrate 25 mg tablet RxNorm: 892704 1/2 TABLET(S) PO BID TAKE 1/2 TABLET BY MOUTH TWICE DAILY 11/08/2014 Inactive Valium 10 mg tablet RxNorm: 884729 TAKE 1 TABLET BY MOUTH FOUR TIMES DAILY NEEDED FOR ANXIETY 11/06/2014 12/09/2014 Inactive Vitamin D2 50,000 unit capsule RxNorm: 488662 1 Capsule(s) PO QW 10/24/2014 10/23/2014 Inactive Vitamin D2 50,000 unit capsule RxNorm: 529404 1 Capsule(s) PO QW x 8 weeks 10/24/2014 12/22/2014 Inactive Entyvio 300 mg intravenous solution RxNorm: 2043051 IV 2014 No Stop Date Active hydrocodone 10 mg-acetaminophen 325 mg tablet RxNorm: 069483 Tablet(s) TAKE 1-2 TABLETS BY MOUTH EVERY 6 HOURS NEEDED FOR PAIN 10/05/2014 11/03/2014 Inactive ( Response to an electronic controlled substance refill request - RxReferenceNumber: [id number]|1|0|1) Valium 10 mg tablet RxNorm: 629665 TAKE 1 TABLET BY MOUTH EVERY 8 HOURS NEEDED 10/05/2014 11/03/2014 Inactive (Response to an electronic controlled substance refill request - RxReferenceNumber: [id number]|1|0|1) Valium 10 mg tablet RxNorm: 396258 1 Tablet(s) PO QID as needed TAKE 1 TABLET BY MOUTH 10/05/2014 11/05/2016 Inactive (Response to an electronic controlled substance refill request - RxReferenceNumber: [id number]|1|0|1) Valium 10 mg tablet RxNorm: 611862 TAKE 1 TABLET BY MOUTH THREE TIMES DAILY NEEDED 09/04/2014 10/03/2014 Inactive (Response to an electronic controlled substance refill request - RxReferenceNumber: [id number]|1|0|1) Valium 10 mg tablet RxNorm: 568857 1 Tablet(s) PO Q8 PRN as needed 09/04/2014 11/09/2014 Inactive hydrocodone 10 mg-acetaminophen 325 mg tablet RxNorm: 365266 Tablet(s) TAKE 1-2 TABLETS BY MOUTH EVERY 6 HOURS NEEDED FOR PAIN 08/27/2014 09/25/2014 Inactive ( Response to an electronic controlled substance refill request - RxReferenceNumber: [id number]|1|0|1) Claritin-D 12 Hour 5 mg-120 mg tablet,extended release RxNorm: 5221169 1 Tablet(s ) PO BID 08/27/2014 04/16/2015 Inactive Ventolin HFA 90 mcg/actuation aerosol inhaler RxNorm: 904083 1 or 2 Puff(s) INH Q6 PRN as needed 08/09/2014 03/06/2015 Inactive pantoprazole 40 mg tablet,delayed release RxNorm: 581252 Tablet(s) PO TAKE 1 TABLET BY MOUTH EVERY DAY 08/09/201408/08 Inactive pantoprazole 40 mg tablet,delayed release RxNorm: 747445 TAKE 1 TABLET BY MOUTH EVERY DAY 08/09/2014 11/05/2016 Inactive diazepam 10 mg tablet RxNorm: 297643 TAKE 1 TABLET BY MOUTH THREE TIMES DAILY NEEDED 07/02/2014 07/31/2014 Inactive (Response to an electronic controlled substance refill request - RxReferenceNumber: [id number]|1|0|1) Valium 10 mg tablet RxNorm: 880943 1 Tablet(s) PO Q8 PRN as needed 07/02/2014 07/01/2014 Inactive hydrocodone 10 mg-acetaminophen 325 mg tablet RxNorm: 969807 Tablet(s) TAKE 1-2 TABLETS BY MOUTH EVERY 6 HOURS NEEDED FOR PAIN 06/14/2014 07/13/2014 Inactive ( Response to an electronic controlled substance refill request - RxReferenceNumber: [id number]|1|0|1) diazepam 10 mg tablet RxNorm: 509737 TAKE 1 TABLET BY MOUTH THREE TIMES DAILY NEEDED 05/29/2014 06/27/2014 Inactive (Response to an electronic controlled substance refill request - RxReferenceNumber: [id number]|1|0|1) diazepam 10 mg tablet RxNorm: 706722 Tablet(s) PO TAKE 1 TABLET BY MOUTH THREE TIMES DAILY NEEDED 05/29/20142013 Inactive (Appended: Controlled substance eRx refill - RxReferenceNumber: [id number]|1|0|1) hydrocodone 10 mg-acetaminophen 325 mg tablet RxNorm: 033073 Tablet(s) TAKE 1-2 TABLETS BY MOUTH EVERY 6 HOURS NEEDED FOR PAIN 05/17/2014 06/13/2014 Inactive ( Response to an electronic controlled substance refill request - RxReferenceNumber: [id number]|1|0|1) diazepam 10 mg tablet RxNorm: 821226 Tablet(s) PO TAKE 1 TABLET BY MOUTH THREE TIMES DAILY NEEDED 04/27/20142013 Inactive (Appended: Controlled substance eRx refill - RxReferenceNumber: [id number]|1|0|1) Anucort-HC 25 mg suppository RxNorm: 2454833 1 SUPPOSITORY RTL QDAY PRN NEEDED 04/03/2014 06/01/2014 Inactive metoprolol tartrate 25 mg tablet RxNorm: 351173 1/2 TABLET(S) PO BID TAKE 1/2 TABLET BY MOUTH TWICE DAILY 04/03/201408/2014 Inactive Anucort-HC 25 mg suppository RxNorm: 6971247 1 SUPPOSITORY RTL QDAY PRN NEEDED 04/03/2014 06/01/2014 Inactive Seroquel 100 mg tablet RxNorm: 553222 1 TABLET(S) PO BID 201312/28/2014 Inactive TAKE 1 TABLET BY MOUTH TWICE DAILY Anucort-HC 25 mg suppository RxNorm: 7928098 1 SUPPOSITORY RTL QDAY PRN NEEDED 04/03/2014 06/01/2014 Inactive hydrocodone 10 mg-acetaminophen 325 mg tablet RxNorm: 846434 Tablet(s) TAKE 1-2 TABLETS BY MOUTH EVERY 6 HOURS NEEDED FOR PAIN 03/22/2014 04/20/2014 Inactive ( Response to an electronic controlled substance refill request - RxReferenceNumber: [id number]|1|0|1) Claritin-D 12 Hour 5 mg-120 mg tablet,extended release RxNorm: 8908511 1 Tablet(s ) PO BID 03/22/2014 2014 Inactive diazepam 10 mg tablet RxNorm: 300290 TAKE 1 TABLET BY MOUTH THREE TIMES DAILY NEEDED 03/19/2014 04/16/2014 Inactive (Response to an electronic controlled substance refill request - RxReferenceNumber: [id number]|1|0|1) Lipitor 20 mg tablet RxNorm: 125114 1 TABLET(S) PO DAILY 201312/05/2014 Inactive TAKE ONE TABLET BY MOUTH EVERY NIGHT AT BEDTIME Effexor XR 150 mg capsule,extended release RxNorm: 853521 1 CAPSULE(S) PO BID 03/01/2014 01/24/2015 Inactive TAKE 1 CAPSULE BY MOUTH TWICE DAILY Claritin-D 12 Hour 5 mg-120 mg tablet,extended release RxNorm: 9259207 1 Tablet(s ) PO BID 02/19/2014 03/21/2014 Inactive cyanocobalamin (vit B-12) 1,000 mcg/mL injection solution RxNorm: 805688 Milliliter(s) Inj 02/15/2014 02/15/2014 Inactive hydrocodone 10 mg-acetaminophen 325 mg tablet RxNorm: 723712 1 Tablet(s) PO Q6 PRN TAKE ONE TO TWO TABLETS BY MOUTH EVERY 6 HOURS NEEDED FOR PAIN 01/30/2014 01/30/2014 Inactive (Response to an electronic controlled substance refill request - RxReferenceNumber: [id number]|1|0|1) hydrocodone 10 mg-acetaminophen 325 mg tablet RxNorm: 307242 TAKE 1-2 TABLETS BY MOUTH EVERY 6 HOURS NEEDED FOR PAIN 01/30/2014 02/19/2014 Inactive (Response to an electronic controlled substance refill request - RxReferenceNumber: [id number]| [id number]|1|0|1) cyanocobalamin (vit B-12) 1,000 mcg/mL injection kit RxNorm: 458470 1 Milliliter(s ) Inj 01/15/2014 01/15/2014 Inactive Kenalog 40 mg/mL suspension for injection RxNorm: 1532632 1 Milliliter(s) Inj 01/15/2014 01/15/2014 Inactive Anucort-HC 25 mg suppository RxNorm: 1301144 1 Suppository RTL QDAY PRN as needed 01/15/2014 02/13/2014 Inactive hydrocodone 10 mg-acetaminophen 325 mg tablet RxNorm: 399515 TAKE ONE TO TWO TABLETS BY MOUTH EVERY 6 HOURS NEEDED FOR PAIN 12/29/2013 01/18/2014 Inactive ( Response to an electronic controlled substance refill request - RxReferenceNumber: [id number]|1|0|1) trazodone 100 mg tablet RxNorm: 708474 TAKE 2 TABLETS BY MOUTH EVERY NIGHT AT BEDTIME 12/20/2013 12/14/2014 Inactive mupirocin 2 % topical ointment RxNorm: 306065 1 APPLICATION TOP PRN 12/14/2013 01/09/2015 Inactive cyanocobalamin (vit B-12) 1,000 mcg/mL injection solution RxNorm: 534031 1 Milliliter(s) Inj 12/04/2013 12/04/2013 Inactive Savella 100 mg tablet RxNorm: 020827 1 Tablet(s) PO daily TAKE 1 TABLET BY MOUTH DAILY 11/28/2013 11/05/2016 Inactive Savella 100 mg tablet RxNorm: 347244 Tablet(s) PO TAKE 1 TABLET BY MOUTH DAILY 10/27/2013 11/27/2013 Inactive mupirocin 2 % topical ointment RxNorm: 707581 1 Application TOP PRN 10/17/2013 No Stop Date Active trazodone 100 mg tablet RxNorm: 926814 Tablet(s) PO TAKE 2 TABLETS BY MOUTH EVERY NIGHT AT BEDTIME 09/26/2013 11/05/2016 Inactive cyclobenzaprine 10 mg tablet RxNorm: 649017 Tablet(s) PO TAKE ONE TABLET BY MOUTH THREE TIMES DAILY 09/26/2013 01/07/2015 Inactive diazepam 10 mg tablet RxNorm: 548314 Tablet(s) PO TAKE 1 TABLET BY MOUTH THREE TIMES DAILY NEEDED 08/15/20132013 Inactive (Appended: Controlled substance eRx refill - RxReferenceNumber: [id number]|1|0|1) diazepam 10 mg tablet RxNorm: 322136 1 Tablet(s) PO TID PRN TAKE 1 TABLET BY MOUTH THREE TIMES DAILY NEEDED 08/15/2013 Inactive (Appended: Controlled substance eRx refill - RxReferenceNumber: [id number]|1|0|1) Vitamin B-12 1,000 mcg/mL injection solution RxNorm: 260634 Milliliter(s) Inj 07/24/2013 07/24/2013 Inactive pantoprazole 40 mg tablet,delayed release RxNorm: 225854 Tablet(s) PO TAKE 1 TABLET BY MOUTH EVERY DAY 07/20/201308/08 Inactive hydrocodone 10 mg-acetaminophen 325 mg tablet RxNorm: 722359 1 or 2 Tablet(s) PO Q6 PRN limit 6 per day 06/26/20132013 Inactive (Appended: Controlled substance eRx refill - RxReferenceNumber: [id number]|1|0|1) trazodone 100 mg tablet RxNorm: 574220 Tablet(s) PO TAKE 2 TABLETS BY MOUTH EVERY NIGHT AT BEDTIME 06/26/2013 11/05/2016 Inactive pantoprazole 40 mg tablet,delayed release RxNorm: 136400 Tablet(s) PO TAKE 1 TABLET BY MOUTH EVERY DAY 06/20/201306/05 Inactive prednisone 10 mg tablets in a dose pack RxNorm: 196059 Tablet(s) PO 6-5-4-3-2-1 06/13/2013 06/12/2013 Inactive prednisone 10 mg tablets in a dose pack RxNorm: 325139 Tablet(s) PO UD 6-5-4-3-2- 1 06/13/2013 06/18/2013 Inactive Silvadene 1 % topical cream RxNorm: 143718 1 TOP daily apply thin layer to left knee daily 06/12/2013 06/18/2013 Inactive metoprolol tartrate 25 mg tablet RxNorm: 746046 1/2 Tablet(s) PO BID TAKE 1/2 TABLET BY MOUTH TWICE DAILY 05/19/2013 Inactive Lipitor 20 mg tablet RxNorm: 357831 1 Tablet(s) PO daily 201203/11/2014 Inactive TAKE ONE TABLET BY MOUTH EVERY NIGHT AT BEDTIME Vitamin B-12 1,000 mcg/mL injection solution RxNorm: 485866 1 Milliliter(s) Inj 05/10/2013 05/10/2013 Inactive hydrocodone 10 mg-acetaminophen 325 mg tablet RxNorm: 448047 1 or 2 Tablet(s) PO Q6 PRN limit 6 per day 03/16/2013 No Stop Date Active (Appended: Controlled substance eRx refill - RxReferenceNumber: [id number]|1|0|1) Seroquel 100 mg tablet RxNorm: 554125 1 Tablet(s) PO BID 201203/10/2014 Inactive TAKE 1 TABLET BY MOUTH TWICE DAILY Effexor XR 150 mg capsule,extended release RxNorm: 917855 1 Capsule(s) PO BID 03/16/2013 02/28/2014 Inactive TAKE 1 CAPSULE BY MOUTH TWICE DAILY fluconazole 150 mg tablet RxNorm: 748682 1 Tablet(s) PO daily 03/06/2013 03/12/2013 Inactive Kenalog 40 mg/mL Susp for Injection RxNorm: 8657846 Milliliter(s) Inj 03/06/2013 03/06/2013 Inactive Ventolin HFA 90 mcg/actuation Aerosol Inhaler RxNorm: 2640989 1 or 2 Puff(s) INH Q6 PRN 02/20/2013 03/16/2014 Inactive cyanocobalamin (vitamin B-12) 1,000 mcg/mL Injection RxNorm: 888471 Milliliter(s) Inj 02/20/2013 02/20/2013 Inactive Valium 10 mg tablet RxNorm: 424821 1 Tablet(s) PO Q8 PRN 01/3102/24/2014 Inactive Kenalog 40 mg/mL Susp for Injection RxNorm: 4496358 Milliliter(s) Inj 12/26/2012 12/26/2012 Inactive cyanocobalamin (vitamin B-12) 1,000 mcg/mL Injection RxNorm: 359751 Milliliter(s) Inj 12/21/2012 12/21/2012 Inactive hydrocodone 10 mg-acetaminophen 325 mg tablet RxNorm: 5629211 1 or 2 Tablet(s) PO Q6 PRN limit 6 per day 11/25/20122012 Inactive (Appended: Controlled substance eRx refill - RxReferenceNumber: [id number]|1|0|1) diazepam 10 mg tablet RxNorm: 210108 1 Tablet(s) PO TID PRN 08/15/2013 Inactive TAKE 1 TABLET BY MOUTH THREE TIMES DAILY NEEDED (Appended: Controlled substance eRx refill - RxReferenceNumber: [id number]|1|0|1) diazepam 10 mg tablet RxNorm: 966129 Tablet(s) PO TAKE 1 TABLET BY MOUTH THREE TIMES DAILY NEEDED 11/21/20122013 Inactive (Appended: Controlled substance eRx refill - RxReferenceNumber: [id number]|1|0|1) Vitamin B-12 1,000 mcg/mL Injection RxNorm: 926186 1 Milliliter(s) Inj 11/16/2012 11/16/2012 Inactive hydrocodone 10 mg-acetaminophen 325 mg tablet RxNorm: 1855572 1 or 2 Tablet(s) PO Q6 PRN limit 6 per day 10/24/20122012 Inactive (Appended: Controlled substance eRx refill - RxReferenceNumber: [id number]|1|0|1) hydrocodone 10 mg-acetaminophen 325 mg tablet RxNorm: 5563321 Tablet(s) PO limit 5x days 10/24/2012 10/23/2012 Inactive (Appended: Controlled substance eRx refill - RxReferenceNumber: [id number]|1|0|1) Savella 100 mg tablet RxNorm: 000956 Tablet(s) PO TAKE 1 TABLET BY MOUTH DAILY 10/14/2012 12/05/2014 Inactive Tubersol 5 tub. unit/0.1 mL Intradermal RxNorm: 723474 Milliliter(s) IDrm 09/26/2012 09/26/2012 Inactive hydrocodone 10 mg-acetaminophen 325 mg tablet RxNorm: 5658375 1 Tablet(s) PO Q4 PRN q 4 hr prn limit 5 per day 09/19/2012 No Stop Date Active (Appended: Controlled substance eRx refill - RxReferenceNumber: [id number]|1|0|1) hydrocodone 10 mg-acetaminophen 325 mg tablet RxNorm: 8355091 Tablet(s) PO TAKE 1 TABLET BY MOUTH FOUR TIMES DAILY 09/16/2012 10/23/2012 Inactive (Appended: Controlled substance eRx refill - RxReferenceNumber: [id number]|1|0|1) cyclobenzaprine 10 mg tablet RxNorm: 886747 Tablet(s) PO TAKE ONE TABLET BY MOUTH THREE TIMES DAILY 09/16/2012 09/25/2013 Inactive hydrocodone 10 mg-acetaminophen 325 mg tablet RxNorm: 7378873 1 Tablet(s) PO Q4 PRN q 4 hr prn limit 5 per day 09/14/2012 09/19/2012 Inactive (Appended: Controlled substance eRx refill - RxReferenceNumber: [id number]|1|0|1) cyanocobalamin (vitamin B-12) 1,000 mcg/mL Injection RxNorm: 604584 1 Milliliter(s ) Inj 09/12/2012 09/12/2012 Inactive cyclobenzaprine 10 mg tablet RxNorm: 553806 Tablet(s) PO TAKE ONE TABLET BY MOUTH THREE TIMES DAILY 09/02/2012 09/15/2012 Inactive hydrocodone 10 mg-acetaminophen 325 mg tablet RxNorm: 1098310 1 Tablet(s) PO QID TAKE 1 TABLET BY MOUTH FOUR TIMES DAILY 08/23/2012 09/13/2012 Inactive (Appended: Controlled substance eRx refill - RxReferenceNumber: [id number]|1|0|1) Kenalog 40 mg/mL Susp for Injection RxNorm: 0324163 1 Milliliter(s) Inj 08/11/2012 08/11/2012 Inactive Vitamin B-12 1,000 mcg/mL Injection RxNorm: 136882 1 Milliliter(s) Inj 08/11/2012 08/11/2012 Inactive Zithromax 250 mg tablet RxNorm: 634911 Tablet(s) PO 07/21/2012 09/14/2012 Inactive please give z lauro cefdinir 300 mg capsule RxNorm: 104268 1 Capsule(s) PO BID 07/20/2012 Inactive cefdinir 300 mg capsule RxNorm: 296151 1 Capsule(s) PO BID 07/27/2012 Inactive diazepam 10 mg tablet RxNorm: 788111 1 Tablet(s) PO TID PRN 12/201211/22/2012 Inactive TAKE 1 TABLET BY MOUTH THREE TIMES DAILY NEEDED (Appended: Controlled substance eRx refill - RxReferenceNumber: [id number]|1|0|1) Vitamin B-12 1,000 mcg/mL Injection RxNorm: 382014 1 Milliliter(s) Inj 07/13/2012 07/13/2012 Inactive pantoprazole 40 mg tablet,delayed release RxNorm: 890146 1 Tablet(s) PO daily 06/14/2012 06/13/2012 Inactive pantoprazole 40 mg tablet,delayed release RxNorm: 146357 1 Tablet(s) PO daily 06/14/2012 06/19/2013 Inactive trazodone 100 mg tablet RxNorm: 039441 Tablet(s) PO TAKE 2 TABLETS BY MOUTH EVERY NIGHT AT BEDTIME 06/06/2012 11/05/2016 Inactive hydrocodone 10 mg-acetaminophen 325 mg tablet RxNorm: 7686480 Tablet(s) PO TAKE 1 TABLET BY MOUTH FOUR TIMES DAILY 05/24/2012 08/23/2012 Inactive (Appended: Controlled substance eRx refill - RxReferenceNumber: [id number]|1|0|1) Symbicort 160 mcg-4.5 mcg/actuation HFA Aerosol Inhaler RxNorm: 5190622 1 INH daily 05/24/2012 05/23/2012 Inactive this is an increase in dosing Symbicort 160 mcg-4.5 mcg/actuation HFA Aerosol Inhaler RxNorm: 0838102 1 INH daily 05/24/2012 06/17/2013 Inactive this is an increase in dosing Ventolin HFA 90 mcg/actuation Aerosol Inhaler RxNorm: 381226 1 or 2 Puff(s) INH Q6 PRN 05/24/2012 05/23/2012 Inactive Ventolin HFA 90 mcg/actuation Aerosol Inhaler RxNorm: 427861 1 or 2 Puff(s) INH Q6 PRN 05/24/2012 02/19/2013 Inactive metoprolol tartrate 25 mg tablet RxNorm: 128441 Tablet(s) PO TAKE 1/2 TABLET BY MOUTH TWICE DAILY 05/24/2012 05/18/2013 Inactive hydrocodone-acetaminophen 10 mg-325 mg tablet RxNorm: 8969503 Tablet(s) PO TAKE 1 TABLET BY MOUTH FOUR TIMES DAILY 05/17/2012 05/17/2012 Inactive (Appended: Controlled substance eRx refill - RxReferenceNumber: [id number]|1|0|1) diazepam 10 mg tablet RxNorm: 066712 Tablet(s) PO 05/03/2012 07/13/2012 Inactive TAKE 1 TABLET BY MOUTH THREE TIMES DAILY NEEDED (Appended: Controlled substance eRx refill - RxReferenceNumber: [id number]|1|0|1) metoprolol tartrate 25 mg tablet RxNorm: 598400 Tablet(s) PO 11/05/2016 Inactive TAKE 1/2 TABLET BY MOUTH TWICE DAILY hydrocodone-acetaminophen 10 mg-325 mg tablet RxNorm: 6393599 Tablet(s) PO 04/11/2012 05/17/2012 Inactive TAKE 1 TABLET BY MOUTH FOUR TIMES DAILY (Appended: Controlled substance eRx refill - RxReferenceNumber: [id number]|1|0|1) ProAir HFA 90 mcg/actuation Aerosol Inhaler RxNorm: 821270 2 INH Q4 PRN 04/05/2012 04/29/2013 Inactive Symbicort 80 mcg-4.5 mcg/actuation HFA Aerosol Inhaler RxNorm: 0677932 2 INH BID 04/05/2012 04/04/2012 Inactive Symbicort 80 mcg-4.5 mcg/actuation HFA Aerosol Inhaler RxNorm: 2840341 2 INH BID 04/05/2012 05/23/2012 Inactive ProAir HFA 90 mcg/actuation Aerosol Inhaler RxNorm: 108085 2 INH Q4 PRN 04/05/2012 04/04/2012 Inactive diazepam 10 mg tablet RxNorm: 370118 Tablet(s) PO 03/17/2012 05/03/2012 Inactive TAKE 1 TABLET BY MOUTH THREE TIMES DAILY NEEDED (Appended: Controlled substance eRx refill - RxReferenceNumber: [id number]|1|0|1) Effexor XR 150 mg capsule,extended release RxNorm: 358048 Capsule(s) PO 03/13/2012 03/15/2013 Inactive TAKE 1 CAPSULE BY MOUTH TWICE DAILY fluconazole 150 mg tablet RxNorm: 593860 1 Tablet(s) PO daily 03/11/2012 03/17/2012 Inactive Lipitor 20 mg tablet RxNorm: 905947 Tablet(s) PO 02/25/2012 03/20/2013 Inactive TAKE ONE TABLET BY MOUTH EVERY NIGHT AT BEDTIME Seroquel 100 mg tablet RxNorm: 983382 1 Tablet(s) PO BID 201102/18/2013 Inactive TAKE 1 TABLET BY MOUTH TWICE DAILY hydrocodone-acetaminophen 10 mg-325 mg tablet RxNorm: 7229447 Tablet(s) PO 02/25/2012 04/11/2012 Inactive TAKE 1 TABLET BY MOUTH FOUR TIMES DAILY . (Appended : Controlled substance eRx refill - RxReferenceNumber: [id number]|1|0|1) Seroquel 100 mg tablet RxNorm: 315090 1 Tablet(s) PO BID 201102/24/2012 Inactive TAKE 1 TABLET BY MOUTH TWICE DAILY Nexium 40 mg capsule,delayed release RxNorm: 733615 1 Capsule(s) PO daily 02/16/2012 06/13/2012 Inactive Effexor XR 150 mg capsule,extended release RxNorm: 922021 Capsule(s) PO 01/14/2012 11/05/2016 Inactive TAKE 1 CAPSULE BY MOUTH TWICE DAILY Kenalog 40 mg/mL Susp for Injection RxNorm: 4437525 1 Milliliter(s) Inj 01/13/2012 01/13/2012 Inactive Vitamin B-12 1,000 mcg/mL Injection RxNorm: 320801 Milliliter(s) Inj 12/21/2011 12/21/2011 Inactive hydrocodone-acetaminophen 10 mg-325 mg tablet RxNorm: 4441919 Tablet(s) PO 12/15/2011 02/25/2012 Inactive TAKE 1 TABLET BY MOUTH FOUR TIMES DAILY (Appended: Controlled substance eRx refill - RxReferenceNumber: [id number]|1|0|1) diazepam 10 mg tablet RxNorm: 458122 Tablet(s) PO 12/15/2011 03/17/2012 Inactive TAKE 1 TABLET BY MOUTH THREE TIMES DAILY NEEDED (Appended: Controlled substance eRx refill - RxReferenceNumber: [id number]|1|0|1) diazepam 10 mg Tab RxNorm: 950629 1 Tablet(s) PO daily 201112/15/2011 Inactive TAKE 1 TABLET BY MOUTH THREE TIMES DAILY (Appended: Controlled substance eRx refill - RxReferenceNumber: [id number]|1|0|1) hydrocodone-acetaminophen 10 mg-325 mg Tab RxNorm: 0676418 1 Tablet(s) PO QID 12/14/2011 12/15/2011 Inactive TAKE 1 TABLET BY MOUTH FOUR TIMES DAILY (Appended: Controlled substance eRx refill - RxReferenceNumber: [id number]|1|0|1) Seroquel 100 mg tablet RxNorm: 728673 Tablet(s) PO 11/27/2011 03/15/2013 Inactive TAKE 1 TABLET BY MOUTH TWICE DAILY hydrocodone-acetaminophen 10 mg-325 mg Tab RxNorm: 9065799 1 Tablet(s) PO QID 11/27/2011 12/13/2011 Inactive TAKE 1 TABLET BY MOUTH FOUR TIMES DAILY (Appended: Controlled substance eRx refill - RxReferenceNumber: [id number]|1|0|1) Seroquel 100 mg Tab RxNorm: 030374 1 Tablet(s) PO BID 201111/26/2011 Inactive Seroquel 100 mg tablet RxNorm: 703608 Tablet(s) PO 11/27/2011 02/16/2012 Inactive TAKE 1 TABLET BY MOUTH TWICE DAILY Nexium 40 mg capsule,delayed release RxNorm: 784599 1 Capsule(s) PO daily 11/16/2011 02/15/2012 Inactive cyanocobalamin (vitamin B-12) 1,000 mcg/mL Injection RxNorm: 998671 1 Milliliter(s ) Inj 10/30/2011 10/30/2011 Inactive hydrocodone-acetaminophen 10 mg-325 mg Tab RxNorm: 4383831 1 Tablet(s) PO QID 10/13/2011 11/23/2011 Inactive TAKE 1 TABLET BY MOUTH FOUR TIMES DAILY (Appended: Controlled substance eRx refill - RxReferenceNumber: [id number]|1|0|1) Effexor XR 150 mg capsule,extended release RxNorm: 173345 1 Capsule(s) PO BID 10/12/2011 01/09/2012 Inactive Fish Oil 1,000 mg Cap RxNorm: 1 Capsule(s) PO QID 10/02/2011 No Stop Date Active Vitamin B-12 1,000 mcg/mL Injection RxNorm: 047903 Milliliter(s) Inj 10/02/2011 10/02/2011 Inactive Kenalog 40 mg/mL Susp for Injection RxNorm: 7094298 Milliliter(s) Inj 10/02/2011 10/02/2011 Inactive diazepam 10 mg Tab RxNorm: 671444 1 Tablet(s) PO daily 201112/13/2011 Inactive TAKE 1 TABLET BY MOUTH THREE TIMES DAILY (Appended: Controlled substance eRx refill - RxReferenceNumber: [id number]|1|0|1) Vitamin B-12 1,000 mcg/mL Injection RxNorm: 091788 Milliliter(s) Inj 09/01/2011 09/01/2011 Inactive hydrocodone-acetaminophen 10 mg-325 mg Tab RxNorm: 8983517 1 Tablet(s) PO QID 08/25/2011 10/05/2011 Inactive TAKE 1 TABLET BY MOUTH FOUR TIMES DAILY (Appended: Controlled substance eRx refill - RxReferenceNumber: [id number]|1|0|1) diazepam 10 mg Tab RxNorm: 650752 Tablet(s) PO 08/10/2011 No Stop Date Active TAKE 1 TABLET BY MOUTH THREE TIMES DAILY (Appended: Controlled substance eRx refill - RxReferenceNumber: [id number]|1|0|1) Vitamin B-12 1,000 mcg/mL Injection RxNorm: 366100 Milliliter(s) Inj 08/03/2011 08/03/2011 Inactive fluticasone 50 mcg/actuation Nasal [place], Susp RxNorm: 0587348 2 [place] NASAL BID 07/27/2011 08/19/2012 Inactive hydrocodone-acetaminophen 10 mg-325 mg Tab RxNorm: 5872030 Tablet(s) PO 07/09/2011 08/24/2011 Inactive TAKE 1 TABLET BY MOUTH FOUR TIMES DAILY (Appended: Controlled substance eRx refill - RxReferenceNumber: [id number]|1|0|1) diazepam 10 mg Tab RxNorm: 953648 Tablet(s) PO 07/09/2011 08/09/2011 Inactive TAKE 1 TABLET BY MOUTH THREE TIMES DAILY (Appended: Controlled substance eRx refill - RxReferenceNumber: [id number]|1|0|1) diazepam 10 mg Tab RxNorm: 475567 Tablet(s) PO 07/08/2011 07/08/2011 Inactive TAKE 1 TABLET BY MOUTH THREE TIMES DAILY (Appended: Controlled substance eRx refill - RxReferenceNumber: [id number]|1|0|1) hydrocodone-acetaminophen 10 mg-325 mg Tab RxNorm: 0291350 Tablet(s) PO 07/08/2011 07/08/2011 Inactive TAKE 1 TABLET BY MOUTH FOUR TIMES DAILY (Appended: Controlled substance eRx refill - RxReferenceNumber: [id number]|1|0|1) cyclobenzaprine 10 mg tablet RxNorm: 690893 Tablet(s) PO 201109/01/2012 Inactive TAKE ONE TABLET BY MOUTH THREE TIMES DAILY Lipitor 40 mg Tab RxNorm: 448316 1 Tablet(s) PO daily 201106/16/2011 Inactive Lipitor 40 mg Tab RxNorm: 937278 1 Tablet(s) PO daily 201106/10/2012 Inactive trazodone 100 mg tablet RxNorm: 395250 Tablet(s) PO 06/02/2011 06/05/2012 Inactive TAKE 2 TABLETS BY MOUTH EVERY NIGHT AT BEDTIME diazepam 10 mg Tab RxNorm: 404189 Tablet(s) PO 05/28/2011 05/29/2011 Inactive TAKE 1 TABLET BY MOUTH THREE TIMES DAILY (Appended: Controlled substance eRx refill - RxReferenceNumber: [id number]|1|0|1) diazepam 10 mg Tab RxNorm: 258613 Tablet(s) PO 05/28/2011 07/08/2011 Inactive TAKE 1 TABLET BY MOUTH THREE TIMES DAILY (Appended: Controlled substance eRx refill - RxReferenceNumber: [id number]|1|0|1) hydrocodone-acetaminophen 10 mg-325 mg Tab RxNorm: 8029888 1 Tablet(s) PO QID 05/26/2011 07/08/2011 Inactive metoprolol tartrate 25 mg tablet RxNorm: 656714 Tablet(s) PO 04/10/2012 Inactive TAKE 1/2 TABLET BY MOUTH TWICE DAILY Savella 100 mg tablet RxNorm: 916292 Tablet(s) PO 05/14/2011 10/13/2012 Inactive TAKE 1 TABLET BY MOUTH DAILY Influenza Virus Vaccine 0.5 mL RxNorm: IM 02/23/2011 02/23/2011 Inactive B12 1000 mcg RxNorm: IM 02/23/20112010 Inactive hydrocodone-acetaminophen 10 mg-325 mg Tab RxNorm: 9739190 1 Tablet(s) PO QID 01/29/2011 01/28/2011 Inactive Restasis 0.05 % eye drops in a dropperette RxNorm: 958742 1 OPH BID No Start Date Active vitamin A-vit C-vit E-zinc-Se Tab RxNorm: 1 Tablet(s) PO daily No Start Date Active garlic extract Oral RxNorm: Oral No Start Date Active Acidophilus Tab RxNorm : 2 Tablet(s) PO QHS No Start Date Active Cranberry Concentrate Cap RxNorm: 1 Capsule(s) PO BID No Start Date Active Xopenex 1.25 mg/3 mL Neb Solution RxNorm: 847891 1 Milliliter(s) INH TID No Start Date Active niacin ER 500 mg Tab RxNorm: 273490 2 Tablet(s) PO HS No Start Date Active SenokotXTRA 17.2 mg Tab RxNorm: 5138206 Oral No Start Date Active Lotemax 0.5 % eye ointment RxNorm: 5680990 1 OPH QHS No Start Date Active Gaviscon Extra Strength Oral RxNorm: Oral No Start Date Active melatonin 3 mg Tab RxNorm: 731947 1 Tablet(s) PO QHS No Start Date Active Voltaren 1 % Topical Gel RxNorm: 380134 4 Gram(s) TOP QID No Start Date Active Vitamin D 1,000 unit Cap RxNorm: 136830 1 Capsule(s) PO QHS No Start Date Active Mucinex DM 30 mg-600 mg 12 hr Tab RxNorm: 2259230 1 Tablet(s) PO BID No Start Date Active calcium citrate 200 mg (950 mg) Tab RxNorm: 866141 1 Tablet(s) PO QID No Start Date Active valerian 530 mg Cap RxNorm: 2 Capsule(s) PO QHS No Start Date Active Anucort-HC 25 mg Suppository RxNorm: 4016133 1 Suppository RTL QDAY PRN No Start Date 01/14/2014 Inactive Nexium 40 mg Capsule, delayed release RxNorm: 074715 1 Capsule(s) PO daily No Start Date 11/15/2011 Inactive Lipitor 20 mg tablet RxNorm: 172632 1 Tablet(s) PO QHS No Start Date 02/25/2012 Inactive mupirocin 2 % topical ointment RxNorm: 826035 1 Application TOP PRN No Start Date 10/16/2013 Inactive fluconazole 150 mg tablet RxNorm: 630906 1 Tablet(s) PO daily No Start Date 03/10/2012 Inactive Fish Oil 1,000 mg Cap RxNorm: 1 Capsule(s) PO TID No Start Date 10/01/2011 Inactive hydrocodone-acetaminophen 10 mg-325 mg Tab RxNorm: 8360128 1 Tablet(s) PO QID No Start Date 05/25/2011 Inactive Zithromax 250 mg tablet RxNorm: 930361 Tablet(s) PO No Start Date 07/20/2012 Inactive please give z lauro prednisone 10 mg tablet RxNorm: 434355 Tablet(s) PO taper. 6-5-4-3-2-1 # 21 No Start Date 09/16/2017 Inactive fluticasone 50 mcg/actuation Nasal [place], Susp RxNorm: 7685052 2 [place] NASAL BID No Start Date 07/26/2011 Inactive Seroquel 100 mg Tab RxNorm: 394397 1 Tablet(s) PO BID No Start Date 11/26/2011 Inactive nystatin 100,000 unit/gram topical powder RxNorm: 907388 1 Application TOP QID until healed No Start Date 10/26/2016 Inactive Savella 100 mg Tab RxNorm: 192883 1 Tablet(s) PO daily No Start Date 05/13/2011 Inactive cyclobenzaprine 10 mg Tab RxNorm: 642109 1 Tablet(s) PO TID No Start Date 07/05/2011 Inactive metoprolol tartrate 25 mg Tab RxNorm: 085204 1/2 Tablet(s) PO BID No Start Date 05/25/2011 Inactive trazodone 100 mg Tab RxNorm: 389905 2 Tablet(s) PO QHS No Start Date 06/01/2011 Inactive Zithromax Z-Lauro 250 mg tablet RxNorm: 449385 1 Tablet(s) PO UD No Start Date 07/11/2015 Inactive z lauro Effexor XR 150 mg 24 hr Cap RxNorm: 510574 1 Capsule(s) PO BID No Start Date 10/11/2011 Inactive diazepam 10 mg Tab RxNorm: 815582 1 Tablet(s) PO TID No Start Date 05/28/2011 Inactive tramadol 50 mg tablet RxNorm: 390894 1-2 Tablet(s) PO Q6 as needed No Start Date 05/28/2015 Inactive Medication Administered Medication Codes Instructions Start Date Status cyanocobalamin (vit B-12) 1,000 mcg/mL injection solution RxNorm: 493310 1Milliliter 03/10/2018 No longer Active cyanocobalamin (vit B-12) 1,000 mcg/mL injection solution RxNorm: 522286 1Milliliter 10/19/2017 No longer Active cyanocobalamin (vit B-12) 1,000 mcg/mL injection solution RxNorm: 585066 1Milliliter 08/19/2017 No longer Active cyanocobalamin (vit B-12) 1,000 mcg/mL injection solution RxNorm: 595249 1Milliliter 07/06/2017 No longer Active cyanocobalamin (vit B-12) 1,000 mcg/mL injection solution RxNorm: 772215 1Milliliter 04/27/2017 No longer Active cyanocobalamin (vit B-12) 1,000 mcg/mL injection solution RxNorm: 240215 1Milliliter 11/17/2016 No longer Active cyanocobalamin (vit B-12) 1,000 mcg/mL injection solution RxNorm: 749842 1Milliliter 10/12/2016 No longer Active cyanocobalamin (vit B-12) 1,000 mcg/mL injection solution RxNorm: 320082 1Milliliter 09/11/2016 No longer Active cyanocobalamin (vit B-12) 1,000 mcg/mL injection solution RxNorm: 370998 Milliliter 07/03/2016 No longer Active cyanocobalamin (vit B-12) 1,000 mcg/mL injection solution RxNorm: 016124 1Milliliter 04/20/2016 No longer Active cyanocobalamin (vit B-12) 1,000 mcg/mL injection solution RxNorm: 850502 Milliliter 02/13/2016 No longer Active cyanocobalamin (vit B-12) 1,000 mcg/mL injection solution RxNorm: 307043 1Milliliter 12/02/2015 No longer Active cyanocobalamin (vit B-12) 1,000 mcg/mL injection solution RxNorm: 172542 1Milliliter 10/29/2015 No longer Active cyanocobalamin (vit B-12) 1,000 mcg/mL injection solution RxNorm: 926537 Milliliter 06/10/2015 No longer Active cyanocobalamin (vit B-12) 1,000 mcg/mL injection solution RxNorm: 645066 Milliliter 02/15/2014 No longer Active cyanocobalamin (vit B-12) 1,000 mcg/mL injection kit RxNorm : 723284 1Milliliter 01/15/2014 No longer Active Kenalog 40 mg/mL suspension for injection RxNorm: 6123133 1Milliliter 01/15/2014 No longer Active cyanocobalamin (vit B-12) 1,000 mcg/mL injection solution RxNorm: 070377 1Milliliter 12/04/2013 No longer Active Vitamin B-12 1,000 mcg/mL injection solution RxNorm: 214496 Milliliter 07/24/2013 No longer Active Vitamin B-12 1,000 mcg/mL injection solution RxNorm: 544723 1Milliliter 05/10/2013 No longer Active Kenalog 40 mg/mL Susp for Injection RxNorm: 4579406 Milliliter 03/06/2013 No longer Active cyanocobalamin (vitamin B-12) 1,000 mcg/mL Injection RxNorm : 177396 Milliliter 02/20/2013 No longer Active Kenalog 40 mg/mL Susp for Injection RxNorm: 3220754 Milliliter 12/26/2012 No longer Active cyanocobalamin (vitamin B-12) 1,000 mcg/mL Injection RxNorm : 325827 Milliliter 12/21/2012 No longer Active Vitamin B-12 1,000 mcg/mL Injection RxNorm: 811210 1Milliliter 11/16/2012 No longer Active Tubersol 5 tub. unit/0.1 mL Intradermal RxNorm: 079024 Milliliter 09/26/2012 No longer Active cyanocobalamin (vitamin B-12) 1,000 mcg/mL Injection RxNorm : 993271 1Milliliter 09/12/2012 No longer Active Kenalog 40 mg/mL Susp for Injection RxNorm: 3026248 1Milliliter 08/11/2012 No longer Active Vitamin B-12 1,000 mcg/mL Injection RxNorm: 522182 1Milliliter 08/11/2012 No longer Active Vitamin B-12 1,000 mcg/mL Injection RxNorm: 752168 1Milliliter 07/13/2012 No longer Active Kenalog 40 mg/mL Susp for Injection RxNorm: 6507444 1Milliliter 01/13/2012 No longer Active Vitamin B-12 1,000 mcg/mL Injection RxNorm: 420643 Milliliter 12/21/2011 No longer Active cyanocobalamin (vitamin B-12) 1,000 mcg/mL Injection RxNorm : 835008 1Milliliter 10/30/2011 No longer Active Vitamin B-12 1,000 mcg/mL Injection RxNorm: 250663 Milliliter 10/02/2011 No longer Active Kenalog 40 mg/mL Susp for Injection RxNorm: 9438997 Milliliter 10/02/2011 No longer Active Vitamin B-12 1,000 mcg/mL Injection RxNorm: 682249 Milliliter 09/01/2011 No longer Active Vitamin B-12 1,000 mcg/mL Injection RxNorm: 058859 Milliliter 08/03/2011 No longer Active B12 1000 [...] 02/23/2011 completed Assessments Condition Codes Effective Dates Generalized anxiety disorder ICD-10: F41.1 ICD-9: 300.02 06/01/2018 Essential (primary) hypertension ICD-10: I10 ICD-9: 401.9 [...] 2011 Weight gain ICD-9: 783.1 06/29/2011 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 Reason For Visit Reason For Visit Effective Dates Notes pain, generalized 06/01/2018 pain, generalized 04/05/2018 pain, [...] Item Item Code Result Date Comp Metabolic Bmk798 NA 138 mEq/L 09/20/2017 Comp Metabolic Jvs885 K 4.1 mEq/L 09/20/2017 Comp Metabolic Aup225 CL 101 mEq/L 09/20/2017 Comp Metabolic Ofc704 CO2 25.0 mEq/L 09/20/2017 Comp Metabolic Myo451 ANION GAP 16 09/20/2017 Comp Metabolic Oja521 GLUCOSE 105 mg/dL 09/20/2017 Comp Metabolic Ift288 Creat 0.8 mg/dL 09/20/2017 Comp Metabolic Hqp503 eGFR 86 ml/min/1.73m2 09/20/2017 Comp Metabolic Cqm585 BUN 24 mg/dL 09/20/2017 Comp Metabolic Ocn105 B/C Ratio 31.6 Ratio 09/20/2017 Comp Metabolic Nzd597 CALCIUM 10.0 mg/dL 09/20/2017 Comp Metabolic Wqp422 ALK PHOS 63 U/L 09/20/2017 Comp Metabolic Eqw702 AST(SGOT) 28 U/L 09/20/2017 Comp Metabolic Wtq045 ALT(SGPT) 34 U/L 09/20/2017 Comp Metabolic Mio576 BILI T 0.3 mg/dL 09/20/2017 Comp Metabolic Lbe423 ALBUMIN 4.8 g/dL 09/20/2017 Comp Metabolic Okr113 TPRO 7.2 g/dL 09/20/2017 Comp Metabolic Cki721 GLOB 2.4 g/dL 09/20/2017 Comp Metabolic Hua493 A/G Ratio 2.0 Ratio 09/20/2017 Comp Metabolic Sgl988 Osmo 280 mOsmo 09/20/2017 Urine Culture Ucult Preliminary NO Growth Day 1 09/20/2017 Urine Culture Ucult Complete NO Growth Day 2 09/20/2017 Vitamin D 25 Oh Grb0102 VITAMIN D, 25 HYDROXY 46.43 ng/mL Comp Metabolic Mhj966 NA 143 mEq/L 08/25/2017 Comp Metabolic Usz351 K 4.1 mEq/L 08/25/2017 Comp Metabolic Cex731 CL 102 mEq/L 08/25/2017 Comp Metabolic Lbf094 CO2 33.0 mEq/L 08/25/2017 Comp Metabolic Gcf592 ANION GAP 12 08/25/2017 Comp Metabolic Wyp378 GLUCOSE 99 mg/dL 08/25/2017 Comp Metabolic Mbb590 Creat 0.8 mg/dL 08/25/2017 Comp Metabolic Gdb518 eGFR 86 ml/min/1.73m2 08/25/2017 Comp Metabolic Fjg802 BUN 19 mg/dL 08/25/2017 Comp Metabolic Zeh106 B/C Ratio 25.0 Ratio 08/25/2017 Comp Metabolic Taw124 CALCIUM 9.5 mg/dL 08/25/2017 Comp Metabolic Uie949 ALK PHOS 63 U/L 08/25/2017 Comp Metabolic Fnn983 AST(SGOT) 17 U/L 08/25/2017 Comp Metabolic Pgq913 ALT(SGPT) 20 U/L 08/25/2017 Comp Metabolic Aht371 BILI T 0.3 mg/dL 08/25/2017 Comp Metabolic Feb657 ALBUMIN 4.5 g/dL 08/25/2017 Comp Metabolic Wly818 TPRO 6.6 g/dL 08/25/2017 Comp Metabolic Ofh797 GLOB 2.1 g/dL 08/25/2017 Comp Metabolic Kdq782 A/G Ratio 2.1 Ratio 08/25/2017 Comp Metabolic Jim088 Osmo 287 mOsmo 08/25/2017 B12 Ajh795 B12 904.00 pg/ml 08/25/2017 Tsh Ord6 TSH [...] 103.4 fl 08/25/2017 Cbc With Differential Ord2 [place]% 7.5 % 08/25/2017 Cbc With Differential Ord2 [...] 3.65 K/ul 08/25/2017 Cbc With Differential Ord2 [place] ABS# 0.6 K/ul 08/25/2017 Cbc With Differential Ord2 Eos ABS# 0.1 K/ul 08/25/2017 Cbc With Differential Ord2 Baso ABS# 0.0 K/ul 08/25/2017 Tsh Ord6 hTSH II 1.18 uIU/mL 10/12/2016 Comp Metabolic Ghn539 NA 139 mEq/L 10/12/2016 Comp Metabolic Xop343 K 3.5 mEq/L 10/12/2016 Comp Metabolic Urd310 CL 102 mEq/L 10/12/2016 Comp Metabolic Vhd084 CO2 25.0 mEq/L 10/12/2016 Comp Metabolic Wzu529 ANION GAP 16 10/12/2016 Comp Metabolic Hdz328 GLUCOSE 84 mg/dL 10/12/2016 Comp Metabolic Sak681 Creat 0.6 mg/dL 10/12/2016 Comp Metabolic Ukq606 eGFR 105 ml/min/1.73m2 10/12/2016 Comp Metabolic Rzr541 BUN 12 mg/dL 10/12/2016 Comp Metabolic Zzw036 B/C Ratio 18.8 Ratio 10/12/2016 Comp Metabolic Agy737 CALCIUM 9.2 mg/dL 10/12/2016 Comp Metabolic Vja698 ALK PHOS 59 U/L 10/12/2016 Comp Metabolic Xrx323 AST(SGOT) 21 U/L 10/12/2016 Comp Metabolic Cpp245 ALT(SGPT) 27 U/L 10/12/2016 Comp Metabolic Ted004 BILI T 0.2 mg/dL 10/12/2016 Comp Metabolic Rjd200 ALBUMIN 4.4 g/dL 10/12/2016 Comp Metabolic Mgq249 TPRO 6.7 g/dL 10/12/2016 Comp Metabolic Gdx046 GLOB 2.3 g/dL 10/12/2016 Comp Metabolic Vcw168 A/G Ratio 1.9 Ratio 10/12/2016 Comp Metabolic Ccg158 Osmo 276 mOsmo 10/12/2016 Cbc With Differential [...] 31.9 % 10/12/2016 Cbc With Differential Ord2 [place]% 8.0 % 10/12/2016 Cbc With Differential Ord2 [...] 3.12 K/ul 10/12/2016 Cbc With Differential Ord2 [place] ABS# 0.8 K/ul 10/12/2016 Cbc With Differential Ord2 Eos ABS# 0.1 K/ul 10/12/2016 Cbc With Differential Ord2 Baso ABS# 0.0 K/ul 10/12/2016 Lipid Ord30 CHOL 194 mg/dL 10/12/2016 Lipid Ord30 HDL 76.0 mg/dl 10/12/2016 Lipid Ord30 TRIG 159 mg/dL 10/12/2016 Lipid Ord30 LDL 86 mg/dL 10/12/2016 Lipid Ord30 C/HDL 2.6 Ratio 10/12/2016 Comp Metabolic Uxj449 NA 139 mEq/L 09/11/2016 Comp Metabolic Wlr589 K 3.6 mEq/L 09/11/2016 Comp Metabolic Mgc345 CL 102 mEq/L 09/11/2016 Comp Metabolic Nlj174 CO2 26.0 mEq/L 09/11/2016 Comp Metabolic Vdk544 ANION GAP 15 09/11/2016 Comp Metabolic Fsf908 GLUCOSE 90 mg/dL 09/11/2016 Comp Metabolic Tzl437 Creat 0.6 mg/dL 09/11/2016 Comp Metabolic Ytf770 eGFR 111 ml/min/1.73m2 09/11/2016 Comp Metabolic Rnn842 BUN 14 mg/dL 09/11/2016 Comp Metabolic Xix357 B/C Ratio 23.0 Ratio 09/11/2016 Comp Metabolic Uxk296 CALCIUM 9.0 mg/dL 09/11/2016 Comp Metabolic Tda124 ALK PHOS 56 U/L 09/11/2016 Comp Metabolic Pnw150 AST(SGOT) 21 U/L 09/11/2016 Comp Metabolic Gty851 ALT(SGPT) 17 U/L 09/11/2016 Comp Metabolic Ulr877 BILI T 0.2 mg/dL 09/11/2016 Comp Metabolic Mfh445 ALBUMIN 4.1 g/dL 09/11/2016 Comp Metabolic Txu110 TPRO 6.5 g/dL 09/11/2016 Comp Metabolic Zpp619 GLOB 2.4 g/dL 09/11/2016 Comp Metabolic Hhu390 A/G Ratio 1.7 Ratio 09/11/2016 Comp Metabolic Bbe706 Osmo 278 mOsmo 09/11/2016 Tsh Ord6 hTSH [...] 33.0 pg 09/11/2016 Cbc With Differential Ord2 [place]% 8.6 % 09/11/2016 Cbc With Differential Ord2 [...] 3.35 K/ul 09/11/2016 Cbc With Differential Ord2 [place] ABS# 1.0 K/ul 09/11/2016 Cbc With Differential Ord2 Eos ABS# 0.1 K/ul 09/11/2016 Cbc With Differential Ord2 Baso ABS# 0.0 K/ul 09/11/2016 Lipid Ord30 CHOL 168 mg/dL 09/11/2016 Lipid Ord30 HDL 74.0 mg/dl 09/11/2016 Lipid Ord30 TRIG 167 mg/dL 09/11/2016 Lipid Ord30 LDL 61 mg/dL 09/11/2016 Lipid Ord30 C/HDL 2.3 Ratio 09/11/2016 B12 Nys456 B12 474.00 pg/ml 09/11/2016 B12 Ibp835 B12 827.00 pg/ml 03/02/2016 Cbc With Differential [...] 108.3 fl 02/28/2016 Cbc With Differential Ord2 [place]% 5.4 % 02/28/2016 Cbc With Differential Ord2 [...] 2.08 K/ul 02/28/2016 Cbc With Differential Ord2 [place] ABS# 0.3 K/ul 02/28/2016 Cbc With Differential Ord2 Eos ABS# 0.1 K/ul 02/28/2016 Cbc With Differential Ord2 Baso ABS# 0.0 K/ul 02/28/2016 Sed Rate Ord21 ESR 5 mm/hr 02/28/2016 C-Reactive Protein Qnt Crqnt CRP 0.1 mg/dl 02/28/2016 Comp Metabolic Dib534 NA 136 mEq/L 02/28/2016 Comp Metabolic Ufs915 K 4.0 mEq/L 02/28/2016 Comp Metabolic Vax611 CL 103 mEq/L 02/28/2016 Comp Metabolic Kbh230 CO2 27.0 mEq/L 02/28/2016 Comp Metabolic Msq804 ANION GAP 10 02/28/2016 Comp Metabolic Zkp909 GLUCOSE 138 mg/dL 02/28/2016 Comp Metabolic Fnn027 Creat 0.6 mg/dL 02/28/2016 Comp Metabolic Npi097 eGFR 120 ml/min/1.73m2 02/28/2016 Comp Metabolic Enm734 BUN 15 mg/dL 02/28/2016 Comp Metabolic Kho910 B/C Ratio 26.3 Ratio 02/28/2016 Comp Metabolic Evr526 CALCIUM 8.8 mg/dL 02/28/2016 Comp Metabolic Hsl858 ALK PHOS 58 U/L 02/28/2016 Comp Metabolic Hsd569 AST(SGOT) 21 U/L 02/28/2016 Comp Metabolic Ujq354 ALT(SGPT) 21 U/L 02/28/2016 Comp Metabolic Iai814 BILI T 0.2 mg/dL 02/28/2016 Comp Metabolic Mxv717 ALBUMIN 3.8 g/dL 02/28/2016 Comp Metabolic Xha390 TPRO 5.7 g/dL 02/28/2016 Comp Metabolic Day008 GLOB 1.9 g/dL 02/28/2016 Comp Metabolic Eyk851 A/G Ratio 2.0 Ratio 02/28/2016 Comp Metabolic Axt008 Osmo 275 mOsmo 02/28/2016 Tsh Ord6 hTSH II 1.25 uIU/mL 02/28/2016 B12 Onz775 B12 >1500.00 pg/ml 01/11/2016 Vitamin D 25 Oh Wuh9621 VITAMIN D, 25 HYDROXY 45.94 ng/mL Comp Metabolic Yrk034 NA 136 mEq/L 03/21/2015 Comp Metabolic Xzz389 K 3.8 mEq/L 03/21/2015 Comp Metabolic Nhl772 CL 101 mEq/L 03/21/2015 Comp Metabolic Stm122 CO2 31.0 mEq/L 03/21/2015 Comp Metabolic Ifh023 ANION GAP 8 03/21/2015 Comp Metabolic Htz482 GLUCOSE 101 mg/dL 03/21/2015 Comp Metabolic Irh065 Creat 0.7 mg/dL 03/21/2015 Comp Metabolic Yak464 eGFR 94 ml/min/1.73m2 03/21/2015 Comp Metabolic Wjo022 BUN 13 mg/dL 03/21/2015 Comp Metabolic Rwq491 B/C Ratio 18.3 Ratio 03/21/2015 Comp Metabolic Dnm712 CALCIUM 9.3 mg/dL 03/21/2015 Comp Metabolic Poc973 ALK PHOS 58 U/L 03/21/2015 Comp Metabolic Nii006 AST(SGOT) 18 U/L 03/21/2015 Comp Metabolic Ckl817 ALT(SGPT) 22 U/L 03/21/2015 Comp Metabolic Knh359 BILI T 0.3 mg/dL 03/21/2015 Comp Metabolic Ojg934 ALBUMIN 4.4 g/dL 03/21/2015 Comp Metabolic Pgn822 TPRO 6.7 g/dL 03/21/2015 Comp Metabolic Zsz462 GLOB 2.3 g/dL 03/21/2015 Comp Metabolic Avk621 A/G Ratio 1.9 Ratio 03/21/2015 Comp Metabolic Tjr360 Osmo 272 mOsmo 03/21/2015 %Hba1C Pmj852 % HbA1c 46641-6 5.4 % 03/21/2015 %Hba1C Yyu205 Gluc Ave 108 mg/dL 03/21/2015 Cbc With [...] 1.32 uIU/mL 03/21/2015 URINALYSIS NONAUTO W/O SCOPE 37292 Specific [place] 1.025 DateTime(Free Text in Aprima) URINALYSIS NONAUTO W/O SCOPE 71668 PH 5.0 DateTime(Free Text in Aprima) URINALYSIS NONAUTO W/O SCOPE 58791 GLUCOSE NEG DateTime( Free Text in Aprima) URINALYSIS NONAUTO W/O SCOPE 75795 Protein NEG DateTime( Free Text in Aprima) URINALYSIS NONAUTO W/O SCOPE 74169 Blood NEG DateTime(Free Text in Aprima) URINALYSIS NONAUTO W/O SCOPE 10433 Bilirubin NEG DateTime(Free Text in Aprima) URINALYSIS NONAUTO W/O SCOPE 35480 Ketones NEG DateTime( Free Text in Aprima) URINALYSIS NONAUTO W/O SCOPE 36120 Urobilinogen NEG DateTime(Free Text in Aprima) URINALYSIS NONAUTO W/O SCOPE 65081 Nitrite NEG DateTime( Free Text in Aprima) URINALYSIS NONAUTO W/O SCOPE 24140 Leukocytes NEG DateTime(Free Text in Aprima) Review of Systems System Result Effective Dates Constitutional No recent illness 2017 Constitutional No [...] distress 05/16/2013 None Full Exam - General 1995 Constitutional general appearance Overall: well nourished 05/16/2013 None Full Exam - General 1994 Psychiatric orientation/consciousness Overall: oriented to person, place and time 05/16/2013 None Full Exam - General 1995 Integument palpation Leg: tender 05/16/2013 ulcer left [...] murmurs 11/21/2012 None Full Exam - General 1995 Abdomen abdominal exam Overall: no tenderness 11/21/2012 None Full Exam - General 1995 Abdomen abdominal exam Overall: normal bowel sounds 11/21/2012 None Full Exam - General 1995 Musculoskeletal head and neck Overall: head atraumatic 11/21/2012 None Full Exam - General 1995 [...] benign 07/21/2012 None Full Exam - General 1995 Lymphatic neck nodes Overall: posterior cervical chain benign 07/21/2012 None Full Exam - General 1995 Abdomen abdominal exam Overall: no tenderness 07/21/2012 None Full Exam - General 1995 Abdomen abdominal exam Overall: normal bowel sounds 07/21/2012 None Full Exam - General 1995 Cardiovascular auscultation of heart Overall: regular rate 07/21/2012 None Full Exam - General 1995 Cardiovascular auscultation of heart Overall: normal heart sounds 07/21/2012 None Full Exam - General 1995 Respiratory auscultation Upper lung field: a normal [...] sounds 05/26/2012 None Full Exam - General 1995 Respiratory auscultation Overall: breath sounds clear bilaterally 05/26/2012 None Full Exam - General 1995 Eyes conjunctiva /eyelids Overall: conjunctiva clear 05/26/2012 None Full Exam - General 1995 Cardiovascular auscultation of heart Overall: regular rate 02/15/2012 None Full Exam - General 1995 Cardiovascular auscultation of heart Overall: normal heart sounds 02/15/2012 None Full Exam - General 1995 Cardiovascular auscultation of heart Overall: no murmurs [...] 1995 Ears/Nose/Throat oral cavity/pharynx/larynx Overall: no masses 10/02/2011 [...] Procedure Codes Date THER/PROPH/DIAG INJ SC/IM CPT-4: 14679 04/05/2018 VITAMIN B12 INJECTION CPT-4: J3420 04/05/2018 THER/PROPH/DIAG INJ SC/IM CPT-4: 89023 03/10/2018 VITAMIN B12 INJECTION CPT-4: J3420 03/10/2018 THER/PROPH/DIAG INJ SC/IM CPT-4: 44884 10/19/2017 VITAMIN B12 INJECTION CPT-4: J3420 10/19/2017 URINALYSIS NONAUTO W/O SCOPE CPT-4: 36828 09/17/2017 THER/PROPH/DIAG INJ SC/IM CPT-4: 37883 08/19/2017 VITAMIN B12 INJECTION CPT-4: J3420 08/19/2017 THER/PROPH/DIAG INJ SC/IM CPT-4: 35937 07/06/2017 VITAMIN B12 INJECTION CPT-4: J3420 07/06/2017 THER/PROPH/DIAG INJ SC/IM CPT-4: 05280 04/27/2017 VITAMIN B12 INJECTION CPT-4: J3420 04/27/2017 THER/PROPH/DIAG INJ SC/IM CPT-4: 35221 11/17/2016 VITAMIN B12 INJECTION CPT-4: J3420 11/17/2016 THER/PROPH/DIAG INJ SC/IM CPT-4: 46682 10/12/2016 VITAMIN B12 INJECTION CPT-4: J3420 10/12/2016 THER/PROPH/DIAG INJ SC/IM CPT-4: 06998 09/11/2016 VITAMIN B12 INJECTION CPT-4: J3420 09/11/2016 THER/PROPH/DIAG INJ SC/IM CPT-4: 49803 07/03/2016 VITAMIN B12 INJECTION CPT-4: J3420 07/03/2016 VITAMIN B12 INJECTION CPT-4: J3420 04/20/2016 THER/PROPH/DIAG INJ SC/IM CPT-4: 81882 04/20/2016 ADMIN INFLUENZA VIRUS VAC CPT-4: G0008 03/17/2016 IIV4 FLU VACC NO PRESERV ID Formatting Model/CDA Sections, Assigned to/Kathy Lopez SNOMED CT: [id number] CPT-4: [id number] 03/17/2016 THER/PROPH/DIAG INJ SC/IM CPT-4: 86414 02/13/2016 VITAMIN B12 INJECTION CPT-4: J3420 02/13/2016 URINALYSIS NONAUTO W/O SCOPE CPT-4: 01676 12/10/2015 THER/PROPH/DIAG INJ SC/IM CPT-4: 54235 12/02/2015 VITAMIN B12 INJECTION CPT-4: J3420 12/02/2015 PNEUMOCOCCAL VACC [address]: [id number] CPT-4: 48746 12/02/2015 IMMUNIZATION ADMIN CPT -4: 67311 12/02/2015 THER/PROPH/DIAG INJ SC/IM CPT-4: 94196 10/29/2015 VITAMIN B12 INJECTION CPT-4: J3420 10/29/2015 THER/PROPH/DIAG INJ SC/IM CPT-4: 82617 06/10/2015 VITAMIN B12 INJECTION CPT-4: J3420 06/10/2015 THER/PROPH/DIAG INJ SC/IM CPT-4: 08902 02/15/2014 VITAMIN B12 INJECTION CPT-4: J3420 02/15/2014 TRIAMCINOLONE ACET INJ NOS CPT-4: J3301 01/15/2014 VITAMIN B12 INJECTION CPT-4: J3420 01/15/2014 THER/PROPH/DIAG INJ SC/IM CPT-4: 78926 12/04/2013 VITAMIN B12 INJECTION CPT-4: J3420 12/04/2013 THER/PROPH/DIAG INJ SC/IM CPT-4: 35810 07/24/2013 VITAMIN B12 INJECTION CPT-4: J3420 07/24/2013 PRESCRIP TRANSMIT VIA ERX SY CPT-4: G8553 06/12/2013 VITAMIN B12 INJECTION CPT-4: J3420 05/10/2013 THER/PROPH/DIAG INJ SC/IM CPT-4: 93499 05/10/2013 TRIAMCINOLONE ACET INJ NOS CPT-4: J3301 03/06/2013 PRESCRIP TRANSMIT VIA ERX SY CPT-4: G8553 03/06/2013 ADMIN INFLUENZA VIRUS VAC CPT-4: G0008 02/20/2013 FLULAVAL VACC, 3 YRS & >, IM CPT-4: Q2036 02/20/2013 THER/PROPH/DIAG INJ SC/IM CPT-4: 73942 02/20/2013 VITAMIN B12 INJECTION CPT-4: J3420 02/20/2013 THER/PROPH/DIAG INJ SC/IM CPT-4: 67338 12/26/2012 TRIAMCINOLONE ACET INJ NOS CPT-4: J3301 12/26/2012 THER/PROPH/DIAG INJ SC/IM CPT-4: 36406 12/21/2012 VITAMIN B12 INJECTION CPT-4: J3420 12/21/2012 THER/PROPH/DIAG INJ SC/IM CPT-4: 45477 11/16/2012 VITAMIN B12 INJECTION CPT-4: J3420 11/16/2012 TB INTRADERMAL TEST (includes injection fee) CPT-4: 79813 09/26/2012 THER/PROPH/DIAG INJ SC/IM CPT-4: 76404 09/12/2012 VITAMIN B12 INJECTION CPT-4: J3420 09/12/2012 TRIAMCINOLONE ACET INJ NOS CPT-4: J3301 08/11/2012 VITAMIN B12 INJECTION CPT-4: J3420 08/11/2012 THER/PROPH/DIAG INJ SC/IM CPT-4: 86796 08/11/2012 VITAMIN B12 INJECTION CPT-4: J3420 07/13/2012 THER/PROPH/DIAG INJ SC/IM CPT-4: 48856 07/13/2012 THER/PROPH/DIAG INJ SC/IM CPT-4: 45020 05/26/2012 TRIAMCINOLONE ACET INJ NOS CPT-4: J3301 05/26/2012 VITAMIN B12 INJECTION CPT-4: J3420 05/26/2012 ADMIN INFLUENZA VIRUS VAC CPT-4: G0008 03/02/2012 FLULAVAL VACC, 3 YRS & >, IM CPT-4: Q2036 03/02/2012 PRESCRIP TRANSMIT VIA ERX SY CPT-4: G8553 02/15/2012 TRIAMCINOLONE ACET INJ NOS CPT-4: J3301 01/13/2012 VITAMIN B12 INJECTION CPT-4: J3420 12/21/2011 VITAMIN B12 INJECTION CPT-4: J3420 10/30/2011 THER/PROPH/DIAG INJ SC/IM CPT-4: 34227 10/30/2011 THER/PROPH/DIAG INJ SC/IM CPT-4: 32608 10/02/2011 VITAMIN B12 INJECTION CPT-4: J3420 10/02/2011 TRIAMCINOLONE ACET INJ NOS CPT-4: J3301 10/02/2011 PRESCRIP TRANSMIT VIA ERX SY CPT-4: G8553 10/02/2011 VITAMIN B12 INJECTION CPT-4: J3420 09/01/2011 URINALYSIS NONAUTO W/O SCOPE CPT-4: 04586 08/03/2011 VITAMIN B12 INJECTION CPT-4: J3420 08/03/2011 THER/PROPH/DIAG INJ SC/IM CPT-4: 26741 08/03/2011 THER/PROPH/DIAG INJ SC/IM CPT-4: 46674 06/11/2011 VITAMIN B12 INJECTION CPT-4: J3420 06/11/2011 ROUTINE VENIPUNCTURE CPT-4: 54812 06/11/2011 THER/PROPH/DIAG INJ SC/IM CPT-4: 76369 02/23/2011 VITAMIN B12 INJECTION CPT-4: J3420 02/23/2011 ADMIN INFLUENZA VIRUS VAC CPT-4: G0008 02/23/2011 FLULAVAL VACC, 3 YRS & >, IM CPT-4: Q2036 02/23/2011 Vital Signs Date Vital 06/01/2018 Blood Pressure 1: 138/70 Code : 8480-6 BMI: 30.9 Code : 59078-5 Heart Rate 1 : 120 bpm Height: 5'9" Respiratory Rate: 18 bpm SpO2: 96% Weight: 209 lbs 04/05/2018 Blood Pressure 1: 144/80 Code : 8480-6 BMI: 30.9 Code : 42803-1 Heart Rate 1 : 118 bpm Height: 5'9" SpO2: 98% Weight: 209 lbs 03/10/2018 Blood Pressure 1: 128/82 Code : 8480-6 Blood Pressure 1: 162/74 Code: 8480-6 BMI: 30.3 Code: 95803-0 Heart Rate 1: 101 bpm Height: 5'9" SpO2: 98% Weight: 205 lbs 01/13/2018 Blood Pressure 1: 102/78 Code : 8480-6 BMI: 31.6 Code : 57768-8 Heart Rate 1 : 103 bpm Height: 5'9" SpO2: 98% Weight: 214 lbs 11/25/2017 Blood Pressure 1: 114/80 Code : 8480-6 BMI: 30.3 Code : 81215-6 Heart Rate 1 : 112 bpm Height: 5'9" SpO2: 98% Weight: 205 lbs 10/19/2017 Blood Pressure 1: 110/70 Code : 8480-6 BMI: 30.7 Code : 97311-3 Heart Rate 1 : 102 bpm Height: 5'9" SpO2: 97% Weight: 208 lbs 09/17/2017 Blood Pressure 1: 132/78 Code : 8480-6 BMI: 30.4 Code : 72538-1 Heart Rate 1 : 117 bpm Height: 5'9" SpO2: 97% Weight: 206 lbs 09/06/2017 Blood Pressure 1: 110/78 Code : 8480-6 BMI: 29.8 Code : 64444-5 Heart Rate 1 : 106 bpm Height: 5'9" SpO2: 97% Weight: 202 lbs 08/19/2017 Blood Pressure 1: 136/72 Code : 8480-6 BMI: 30.4 Code : 37887-8 Heart Rate 1 : 108 bpm Height: 5'9" SpO2: 94% Weight: 206 lbs 07/06/2017 Blood Pressure 1: 154/80 Code : 8480-6 Heart Rate 1: 111 bpm Height: 5'9" Respiratory Rate: 20 bpm SpO2: 98% Weight: 04/27/2017 Blood Pressure 1: 138/78 Code : 8480-6 BMI: 30.4 Code : 04411-8 Heart Rate 1 : 96 bpm Height: 5'9" SpO2: 97% Weight: 206 lbs 04/06/2017 Blood Pressure 1: 108/80 Code : 8480-6 BMI: 31.0 Code : 37118-9 Heart Rate 1 : 96 bpm Height: 5'9" SpO2: 98% Weight: 210 lbs 02/25/2017 Blood Pressure 1: 132/80 Code : 8480-6 BMI: 32.5 Code : 82525-9 Heart Rate 1 : 112 bpm Height: 5'9" SpO2: 94% Weight: 220 lbs 01/19/2017 Blood Pressure 1: 122/68 Code : 8480-6 Heart Rate 1: 100 bpm Height: 5'9" SpO2: 95% Weight: 11/17/2016 Blood Pressure 1: 132/74 Code : 8480-6 BMI: 32.2 Code : 70282-5 Heart Rate 1 : 98 bpm Height: 5'9" SpO2: 94% Weight: 218 lbs 10/12/2016 Blood Pressure 1: 130/82 Code : 8480-6 BMI: 32.2 Code : 19555-8 Heart Rate 1 : 97 bpm Height: 5'9" SpO2: 94% Weight: 218 lbs 08/18/2016 Blood Pressure 1: 132/78 Code : 8480-6 BMI: 32.0 Code : 74370-0 Heart Rate 1 : 113 bpm Height: 5'9" SpO2: 98% Weight: 217 lbs 08/07/2016 Blood Pressure 1: 126/70 Code : 8480-6 BMI: 33.1 Code : 97116-5 Heart Rate 1 : 102 bpm Height: 5'9" SpO2: 94% Weight: 224 lbs 07/31/2016 Blood Pressure 1: 134/66 Code : 8480-6 BMI: 31.7 Code : 47664-2 Heart Rate 1 : 97 bpm Height: 5'9" SpO2: 95% Temperature: 36.4 (C) / 97.6 (F) Weight: 215 lbs 07/15/2016 Blood Pressure 1: 126/62 Code : 8480-6 Heart Rate 1: 105 bpm Height: 5'9" Weight: 07/07/2016 Blood Pressure 1: 106/54 Code : 8480-6 BMI: 31.7 Code : 34118-3 Heart Rate 1 : 93 bpm Height: 5'9" SpO2: 97% Weight: 215 lbs 06/25/2016 Heart Rate 1: 99 bpm Height: 5'9" SpO2: 95% Weight: 05/07/2016 Blood Pressure 1: 124/86 Code : 8480-6 BMI: 28.5 Code : 13099-2 Heart Rate 1 : 100 bpm Height: 5'9" SpO2: 96% Weight: 193 lbs 04/20/2016 Blood Pressure 1: 120/80 Code : 8480-6 BMI: 28.5 Code : 77676-4 Heart Rate 1 : 86 bpm Height: 5'9" SpO2: 96% Weight: 193 lbs 03/17/2016 Blood Pressure 1: 120/70 Code : 8480-6 BMI: 29.1 Code : 86696-6 Heart Rate 1 : 103 bpm Height: 5'9" SpO2: 96% Weight: 197 lbs 03/05/2016 Blood Pressure 1: 124/78 Code : 8480-6 Heart Rate 1: 82 bpm Height: 5'9" SpO2: 94% Weight: 02/28/2016 Blood Pressure 1: 94/50 Code : 8480-6 Heart Rate 1: 91 bpm Height: 5'9" SpO2: 94% Weight: 02/13/2016 Blood Pressure 1: 128/86 Code : 8480-6 BMI: 28.6 Code : 21699-1 Heart Rate 1 : 100 bpm Height: 5'9" SpO2: 96% Weight: 194 lbs 08/15/2015 Blood Pressure 1: 128/68 Code : 8480-6 BMI: 27.3 Code : 41781-7 Heart Rate 1 : 72 bpm Height: 5'9" SpO2: 92% Weight: 185 lbs 07/25/2015 Blood Pressure 1: 122/76 Code : 8480-6 BMI: 27.5 Code : 52215-4 Heart Rate 1 : 70 bpm Height: 5'9" SpO2: 94% Weight: 186 lbs 06/25/2015 Blood Pressure 1: 118/54 Code : 8480-6 BMI: 26.7 Code : 51257-4 Heart Rate 1 : 98 bpm Height: 5'9" SpO2: 97% Weight: 181 lbs 06/10/2015 Blood Pressure 1: 110/68 Code : 8480-6 Heart Rate 1: 80 bpm Height: SpO2: 98% Weight: 05/08/2015 Blood Pressure 1: 120/68 Code : 8480-6 BMI: 27.5 Code : 45842-3 Heart Rate 1 : 95 bpm Height: 5'9" SpO2: 96% Weight: 186 lbs 03/26/2015 Blood Pressure 1: 120/80 Code : 8480-6 Heart Rate 1: 102 bpm Respiratory Rate: 18 bpm SpO2: 92% Weight: 186 lbs 03/15/2015 Blood Pressure 1: 122/64 Code : 8480-6 BMI: 26.6 Code : 22982-4 Heart Rate 1 : 96 bpm Height: 5'9" SpO2: 96% Weight: 180 lbs 01/10/2015 Blood Pressure 1: 120/68 Code : 8480-6 BMI: 27.5 Code : 27647-7 Heart Rate 1 : 90 bpm Height: 5'9" Weight: 186 lbs 12/21/2014 Blood Pressure 1: 118/78 Code : 8480-6 BMI: 27.2 Code : 58522-1 Heart Rate 1 : 61 bpm Height: 5'9" SpO2: 97% Weight: 184 lbs 10/05/2014 Blood Pressure 1: 118/64 Code : 8480-6 BMI: 27.0 Code : 60597-3 Heart Rate 1 : 76 bpm Height: 5'9" Weight: 183 lbs 06/14/2014 Blood Pressure 1: 120/78 Code : 8480-6 BMI: 26.6 Code : 31850-0 Heart Rate 1 : 96 bpm Height: 5'9" Weight: 180 lbs 01/19/2014 Blood Pressure 1: 128/76 Code : 8480-6 BMI: 27.3 Code : 37471-1 Heart Rate 1 : 82 bpm Height: 5'9" Weight: 185 lbs 01/15/2014 Blood Pressure 1: 110/62 Code : 8480-6 BMI: 27.9 Code : 81214-5 Heart Rate 1 : 80 bpm Height: 5'9" Weight: 189 lbs 10/20/2013 Blood Pressure 1: 112/62 Code : 8480-6 BMI: 30.1 Code : 71917-0 Heart Rate 1 : 76 bpm Height: [...] Code : 8480-6 BMI: 30.6 Code : 42399-5 Heart Rate 1 : 92 bpm Height: 5'9" Weight: 207 lbs 05/23/2013 Blood Pressure 1: 120/78 Code : 8480-6 Heart Rate 1: 84 bpm Weight: 05/19/2013 Blood Pressure 1: 126/78 Code : 8480-6 BMI: 30.3 Code : 87673-9 Heart Rate 1 : 88 bpm Height: 5'9" Weight: 205 lbs 05/16/2013 Blood Pressure 1: 126/66 Code : 8480-6 BMI: 30.3 Code : 03098-9 Heart Rate 1 : 84 bpm Height: 5'9" Weight: 205 lbs 03/06/2013 Blood Pressure 1: 128/76 Code : 8480-6 BMI: 30.6 Code : 64353-1 Heart Rate 1 : 88 bpm Height: 5'9" Weight: 207 lbs 12/26/2012 Blood Pressure 1: 142/70 Code : 8480-6 BMI: 29.6 Code : 17198-6 Heart Rate 1 : 100 bpm Height: 5'9" Weight: 200 lbs 8 oz 11/21/2012 Blood Pressure 1: 132/80 Code : 8480-6 BMI: 29.5 Code : 41332-8 Heart Rate 1 : 96 bpm Height: [...] Code : 8480-6 BMI: 29.2 Code : 41929-5 Heart Rate 1 : 64 bpm Height: 5'9" Respiratory Rate: 16 bpm Weight: 198 lbs 03/11/2011 Blood Pressure 1: 106/60 Code : 8480-6 BMI: 28.8 Code : 24911-2 Heart Rate 1 : 100 bpm Height: 5'9" SpO2: 97% Weight: 195 lbs 02/12/2011 Weight: 192 lbs 01/29/2011 Blood Pressure 1: 100/64 Code : 8480-6 BMI: 28.1 Code : 54657-5 Heart Rate 1 : 100 bpm Height: 5'9" Respiratory Rate: 20 bpm Weight: 190 lbs 8 oz Functional Status No Functional Status data History of Present Illness Symptom Name Status Result Effective Date Notes Location diffusely None Quality chronic 06/01 None [...] Hospital Follow Up _ pain 05/16/2013 left [id number] to left knee-applying neosporin and covering with [...] pt to have a study done at [facility] [id number] shortness of breath Triggers exertion 03/11/2011 None [...] 02/12/2011 and pt went to her chiropractor/ care connector this week and was" worked on" and she has been feeling better shortness of breath Alleviating Factors rest 02/12/2011 pt states that her shortness of breath got better after her care connector adjusted her pelvis gastroesophageal reflux Quality heartburn [...] Directive data Encounters Encounter Performer Location Codes ([id number]) 45805 EST. PATIENT, LEVEL IV Diagnosis: Chronic pain syndrome[ICD10: G89.4] Diagnosis: Generalized anxiety disorder[ICD10: F41.1] Diagnosis: Low back pain[ICD10: M54.5] Diagnosis: Essential (primary) hypertension[ICD10: I10] Aicha Thompson MD, [facility] CPT-4: 16347 06/01/2018 ([id number]) 93030 EST. PATIENT, LEVEL IV Diagnosis: Essential (primary) hypertension[ICD10: I10] Diagnosis: Chronic pain syndrome[ICD10: G89.4] Diagnosis: Vitamin B12 deficiency anemia due to intrinsic factor deficiency[ ICD10: D51.0] Aicha Thompson MD, [facility] CPT-4: 84118 04/05/2018 ([id number]) 69852 EST. PATIENT, LEVEL IV Diagnosis: Essential (primary) hypertension[ICD10: I10] Diagnosis: Generalized anxiety disorder[ICD10: F41.1] Diagnosis: Major depressive disorder, recurrent, mild[ICD10: F33.0] Diagnosis: Vitamin B12 deficiency anemia due to intrinsic factor deficiency[ ICD10: D51.0] Valentina Thompson MD, [facility] CPT-4: 83397 03/10/2018 ([id number]) 22594 EST. PATIENT, LEVEL IV Diagnosis: Headache[ICD10: R51] Diagnosis: Obstructive sleep apnea (adult) (pediatric)[ICD10: G47.33] Diagnosis: Cervicalgia[ICD10: M54.2] Valentina Thompson MD, [facility] CPT-4: 48597 01/13/2018 ([id number]) 70637 EST. PATIENT, LEVEL IV Diagnosis: Headache[ICD10: R51] Diagnosis: Spinal stenosis, cervical region[ICD10: M48.02] Diagnosis: Major depressive disorder, recurrent, mild[ICD10: F33.0] Valentina Thompson MD , [facility] CPT-4: 13045 11/25/2017 ([id number]) 07428 EST. PATIENT, LEVEL III Diagnosis: Allergic contact dermatitis due to plants, except food[ICD10: L23.7] Diagnosis: Vitamin B12 deficiency anemia due to intrinsic factor deficiency[ ICD10: D51.0] Valentina Thompson MD, [facility] CPT-4: 61701 10/19/2017 ([id number]) 60462 EST. PATIENT, LEVEL IV Diagnosis: Generalized abdominal pain[ICD10: R10.84] Diagnosis: Urinary tract infection, site not specified[ICD10: N39.0] Diagnosis: Hypokalemia[ICD10: E87.6] Valentina Thompson MD, [facility] CPT-4: 91687 09/17/2017 ([id number]) 36591 EST. PATIENT, LEVEL IV Diagnosis: Chronic pain syndrome[ICD10: G89.4] Diagnosis: Pain in left knee[ICD10: M25.562] Diagnosis: Pain in right knee[ICD10: M25.561] Diagnosis: Essential (primary) hypertension[ICD10: I10] Aicha Thompson MD, [facility] CPT-4: 35101 09/06/2017 ([id number]) 75204 EST. PATIENT, LEVEL IV Diagnosis: Headache[ICD10: R51] Diagnosis: Chronic pain syndrome[ICD10: G89.4] Diagnosis: Mixed hyperlipidemia[ICD10: E78.2] Diagnosis: Vitamin D deficiency, unspecified[ICD10: E55.9] Diagnosis: Vitamin B12 deficiency anemia, unspecified[ICD10: D51.9] Valentina Thompson MD , [facility] CPT-4: 74418 08/19/2017 69608 EST. PATIENT, LEVEL V Diagnosis: Essential (primary) hypertension[ICD10: I10] Diagnosis: Vitamin B12 deficiency anemia due to intrinsic factor deficiency[ ICD10: D51.0] Diagnosis: Chronic pain syndrome[ICD10: G89.4] Aicha Thompson MD, [facility] CPT-4: 08356 07/06/2017 ([id number]) 69493 EST. PATIENT, LEVEL IV Diagnosis: Cervicalgia[ICD10: M54.2] Diagnosis: Laceration without foreign body of scalp, initial encounter[ICD10: S01.01XA] Diagnosis: Vitamin B12 deficiency anemia due to intrinsic factor deficiency[ ICD10: D51.0] Valentina Thompson MD, [facility] CPT-4: 83771 04/27/2017 28602 EST. PATIENT, LEVEL II Diagnosis: Residual hemorrhoidal skin tags[ICD10: K64.4] Valentina Thompson MD, [facility] CPT-4: 67560 04/06/2017 ([id number]) 91035 EST. PATIENT, LEVEL III Diagnosis: Pain in right foot[ICD10: M79.671] Diagnosis: Pain in left foot[ICD10: M79.672] Diagnosis: Cervicalgia[ICD10: M54.2] Valentina Thompson MD, [facility] CPT-4: 53116 02/25/2017 ([id number]) 52170 EST. PATIENT, LEVEL IV Diagnosis: Essential (primary) hypertension[ICD10: I10] Diagnosis: Chronic pain syndrome[ICD10: G89.4] Diagnosis: Spinal stenosis, cervical region[ICD10: M48.02] Diagnosis: Pain in right leg[ICD10: M79.604] Valentina Thompson MD, [facility] CPT-4: 40605 01/19/2017 ([id number]) 47466 EST. PATIENT, LEVEL III Diagnosis: Pain in right foot[ICD10: M79.671] Diagnosis: Pain in left foot[ICD10: M79.672] Diagnosis: Chronic pain syndrome[ICD10: G89.4] Diagnosis: Vitamin B12 deficiency anemia, unspecified[ICD10: D51.9] Valentina Thompson MD , [facility] CPT-4: 21903 11/17/2016 ([id number]) 63518 EST. PATIENT, LEVEL IV Diagnosis: Essential (primary) hypertension[ICD10: I10] Diagnosis: Chronic pain syndrome[ICD10: G89.4] Diagnosis: Foot drop, right foot[ICD10: M21.371] Diagnosis: Foot drop, left foot[ICD10: M21.372] Diagnosis: Other abnormalities of gait and mobility[ICD10: R26.89] Diagnosis: Vitamin B12 deficiency anemia due to intrinsic factor deficiency[ ICD10: D51.0] Aicha Thompson MD, [facility] CPT-4: 42455 10/12/2016 ([id number]) 64191 EST. PATIENT, LEVEL III Diagnosis: Pain in right ankle and joints of right foot[ICD10: M25.571] Diagnosis: Superficial foreign body, right foot, initial encounter[ICD10: S90.851A] Valentina Thompson MD, [facility] CPT-4: 51041 ([id number]) 36346 EST. PATIENT, LEVEL III Diagnosis: Candidiasis of vulva and vagina[ICD10: B37.3] Diagnosis: Vitamin B12 deficiency anemia, unspecified[ICD10: D51.9] Valentina Thompson MD , [facility] CPT-4: 84469 08/07/2016 ([id number]) 67660 EST. PATIENT, LEVEL III Diagnosis: Spinal stenosis, cervical region[ICD10: M48.02] Diagnosis: Pain in right ankle and joints of right foot[ICD10: M25.571] Diagnosis: Pain in left ankle and joints of left foot[ICD10: M25.572] Valentina Thompson MD, [facility] CPT-4: 36480 07/31/2016 96422 EST. PATIENT, LEVEL III Diagnosis: Cervicalgia[ICD10: M54.2] Diagnosis: Chronic pain syndrome[ICD10: G89.4] Beatriz Thompson MD, [facility] CPT-4: 09332 07/15/2016 ([id number]) 91584 EST. PATIENT, LEVEL III Diagnosis: Spinal stenosis, cervical region[ICD10: M48.02] Diagnosis: Low back pain[ICD10: M54.5] Valentina Thompson MD, [facility] CPT-4: 15968 07/07/2016 ([id number]) 59336 EST. PATIENT, LEVEL IV Diagnosis: Cervicalgia[ICD10: M54.2] Diagnosis: Essential (primary) hypertension[ICD10: I10] Diagnosis: Mixed hyperlipidemia[ICD10: E78.2] Aicha Thompson MD, [facility] CPT-4: 51056 06/25/2016 ([id number]) 04635 EST. PATIENT, LEVEL III Diagnosis: Cervicalgia[ICD10: M54.2] Valentina Thompson MD, [facility] CPT-4: 78219 05/07/2016 ([id number]) 29013 EST. PATIENT, LEVEL III Diagnosis: Pleurodynia[ICD10: R07.81] Diagnosis: Generalized anxiety disorder[ICD10: F41.1] Diagnosis: Vitamin B12 deficiency anemia due to intrinsic factor deficiency[ ICD10: D51.0] Diagnosis: Hypoxemia[ICD10: R09.02] Valentina Thompson MD, [facility] CPT-4: 51749 04/20/2016 ([id number]) 67771 EST. PATIENT, LEVEL III Diagnosis: Generalized anxiety disorder[ICD10: F41.1] Diagnosis: Radiculopathy, lumbar region[ICD10: M54.16] Valentina Thompson MD, [facility] CPT-4: 75336 03/17/2016 55480 EST. PATIENT, LEVEL IV Diagnosis: Chronic pain syndrome[ICD10: G89.4] Diagnosis: Radiculopathy, lumbar region[ICD10: M54.16] Diagnosis: Generalized anxiety disorder[ICD10: F41.1] Beatriz Thompson MD, [facility] CPT-4: 29970 03/05/2016 ([id number]) 24939 EST. PATIENT, LEVEL III Diagnosis: Radiculopathy, lumbar region[ICD10: M54.16] Diagnosis: Generalized anxiety disorder[ICD10: F41.1] Valentina Thompson MD, [facility] CPT-4: 12757 02/28/2016 ([id number]) 79663 EST. 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 PATIENT, LEVEL III Diagnosis: Headache[ICD10: R51] Diagnosis: Cervicalgia[ICD10: M54.2] Valentina Thompson MD, [facility] CPT-4: 96924 08/15/2015 ([id number]) 59790 EST. PATIENT, LEVEL III Diagnosis: Generalized anxiety disorder[ICD10: F41.1] Diagnosis: Cervicalgia[ICD10: M54.2] Valentina Thompson MD, [facility] CPT-4: 40313 07/25/2015 ([id number]) 49976 EST. PATIENT, LEVEL IV Diagnosis: Pain in right foot[ICD10: M79.671] Diagnosis: Unspecified osteoarthritis, unspecified site[ICD10: M19.90] Diagnosis: Pain in left ankle and joints of left foot[ICD10: M25.572] Diagnosis: Pain in right ankle and joints of right foot[ICD10: M25.571] Valentina Thompson MD, [facility] CPT-4: 69501 06/25/2015 ([id number]) 82860 EST. 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 PATIENT, LEVEL IV Diagnosis: Essential (primary) hypertension[ICD10: I10] Diagnosis: Pain in right foot[ICD10: M79.671] Diagnosis: Pain in left foot[ICD10: M79.672] Diagnosis: Anxiety disorder, unspecified[ICD10: F41.9] Aicha Thompson MD, [facility] CPT-4: 23144 05/08/2015 ([id number]) 49732 EST. PATIENT, LEVEL III Diagnosis: Generalized anxiety disorder[ICD10: F41.1] Diagnosis: Essential (primary) hypertension[ICD10: I10] Diagnosis: Other myositis, multiple sites[ICD10: M60.89] Valentina Thompson MD, [facility] CPT-4: 95034 03/26/2015 67939 EST. PATIENT, LEVEL III Diagnosis: Chronic pain syndrome[ICD10: G89.4] Diagnosis: Unspecified osteoarthritis, unspecified site[ICD10: M19.90] Diagnosis: Pain in right foot[ICD10: M79.671] Diagnosis: Pain in left foot[ICD10: M79.672] Beatriz Thompson MD, [facility] CPT -4: 48669 03/15/2015 ([id number]) 09060 EST. PATIENT, LEVEL III Diagnosis: Abrasion of knee, left[ICD9: 916.0] Valentina Thompson MD, [facility] CPT-4: 39971 01/10/2015 ([id number]) 04989 EST. PATIENT, LEVEL IV Diagnosis: CHRONIC PAIN SYNDROME[ICD9: 338.4] Diagnosis: MYALGIA AND MYOSITIS[ICD9: 729.1] Diagnosis: OSTEOARTH NOS-UNSPEC[ICD9: 715.90] Diagnosis: DEPRESSIVE DISORDER NEC[ICD9: 311] Diagnosis: GENERALIZED ANXIETY DISEASE[ICD9: 300.02] Valentina Thompson MD, [facility] CPT-4: 98496 12/21/2014 ([id number]) 10559 EST. PATIENT, LEVEL IV Diagnosis: GENERALIZED ANXIETY DISEASE[ICD9: 300.02] Diagnosis: DEPRESSIVE DISORDER NEC[ICD9: 311] Diagnosis: ESSENTIAL HYPERTENSION[ICD9: 401.9] Valentina Thompson MD, [facility] CPT-4: 27706 10/05/2014 ([id number]) 33914 EST. PATIENT, LEVEL III Diagnosis: Knee pain, right[ICD9: 719.46] Diagnosis: CHRONIC PAIN SYNDROME[ICD9: 338.4] Diagnosis: Ankle pain[ICD9: 719.47] Aicha Thompson MD, [facility] CPT-4: 80615 06/14/2014 ([id number]) 82880 EST. PATIENT, LEVEL III Diagnosis: Constipation[ICD9: 564.00] Diagnosis: Hemorrhoids[ICD9: 455.6] Valentina Thompson MD, [facility] CPT-4: 22999 01/19/2014 ([id number]) 69266 EST. PATIENT, LEVEL III Diagnosis: Ulcer of knee[ICD9: 707.19] Diagnosis: Hemorrhoids[ICD9: 455.6] Diagnosis: B12 deficiency[ICD9: 266.2] Diagnosis: ALLERGIC RHINITIS[ICD9: 477.9] Valentina Thompson MD, [facility] CPT-4: 97121 01/15/2014 ([id number]) 27284 EST. PATIENT, LEVEL IV Diagnosis: EDEMA[ICD9: 782.3] Diagnosis: Open wound of knee[ICD9: 891.0] Diagnosis: CHRONIC PAIN SYNDROME[ICD9: 338.4] Diagnosis: ANEMIA[ICD9: 285.9] Valentina Thompson MD [facility] CPT-4: 29502 10/20/2013 ([id number]) 49942 EST. PATIENT, LEVEL III Diagnosis: ULCER OTH PART LOW LIMB[ICD9: 707.19] Valentina Thompson MD [facility] CPT-4: 09446 07/24/2013 ([id number]) 89431 EST. PATIENT, LEVEL III Diagnosis: ULCER OTH PART LOW LIMB[ICD9: 707.19] Valentina Thompson MD [facility] CPT-4: 61274 06/23/2013 ([id number]) 82102 EST. PATIENT, LEVEL III Diagnosis: ULCER OTH PART LOW LIMB[ICD9: 707.19] Valentina Thompson MD [facility] CPT-4: 05000 06/12/2013 ([id number]) Miscellaneous no charge Diagnosis: ULCER OTH PART LOW LIMB[ICD9: 707.19] Valentina Thompson MD [facility] CPT-4: 07003 05/29/2013 ([id number]) 55007 EST. PATIENT, LEVEL III Diagnosis: ULCER OTH PART LOW LIMB[ICD9: 707.19] Valentina Thompson MD [facility] CPT-4: 72512 05/23/2013 ([id number]) Miscellaneous no charge Diagnosis: ULCER OTH PART LOW LIMB[ICD9: 707.19] Valentina Thompson MD [facility] CPT-4: 05338 05/19/2013 ([id number]) 82052 EST. PATIENT, LEVEL III Diagnosis: Ulcer of knee[ICD9: 707.19] Valentina Thompson MD [facility] CPT-4: 79745 05/16/2013 ([id number]) 20547 EST. PATIENT, LEVEL III Diagnosis: ALLERGIC RHINITIS[ICD9: 477.9] Aicha Thompson MD [facility] CPT- 4: 78191 03/06/2013 ([id number]) 24840 EST. PATIENT, LEVEL IV Diagnosis: Ankle pain[ICD9: 719.47] Diagnosis: ALLERGIC RHINITIS[ICD9: 477.9] Diagnosis: ESSENTIAL HYPERTENSION[SNOMED: 72024381] Aicha Thompson MD, [facility] CPT-4: 31631 12/26/2012 ([id number]) 18416 EST. PATIENT, LEVEL IV Diagnosis: ESSENTIAL HYPERTENSION[SNOMED: 98852502] Diagnosis: JOINT PAIN-L/LEG[ICD9: 719.46] Diagnosis: GENERALIZED ANXIETY DISEASE[ICD9: 300.02] Diagnosis: UNSPECIFIED ASTHMA[ICD9: 493.90] Aicha Thompson MD [facility] CPT-4: 96644 11/21/2012 ([id number]) Miscellaneous no charge Diagnosis: Encounter for tuberculin skin test[ICD9: V74.1] Aicha Thompson MD [facility] CPT-4: 30157 09/28/2012 ([id number]) 77133 EST. PATIENT, LEVEL IV Diagnosis: FEVER NOS[ICD9: 780.60] Diagnosis: PNEUMONIA (CAP)[ICD9: 486] Aicha Thompson MD [facility] CPT- 4: 36798 07/21/2012 ([id number]) 46290 EST. PATIENT, LEVEL IV Diagnosis: JOINT PAIN-ANKLE[ICD9: 719.47] Diagnosis: MUSCLE/LIGAMENT DIS NEC[ICD9: 728.89] Diagnosis: Fibromyalgia muscle pain[ICD9: 729.1] Aicha Thompson MD, [facility] CPT-4: 85250 07/13/2012 ([id number]) 35124 EST. 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 PATIENT, LEVEL IV Diagnosis: Chest wall pain[ICD9: 786.52] Diagnosis: Esophageal reflux[ICD9: 530.81] Diagnosis: ALLERGIC RHINITIS[ICD9: 477.9] Valentina Thompson MD, [facility] CPT-4: 83228 02/15/2012 ([id number]) 02673 EST. PATIENT, LEVEL IV Diagnosis: ALLERGIC RHINITIS[ICD9: 477.9] Diagnosis: HYPERLIPIDEMIA[ICD9: 272.4] Aicha Thompson MD, [facility] CPT- 4: 06608 01/13/2012 ([id number]) 94375 EST. PATIENT, LEVEL IV Diagnosis: JOINT PAIN-L/LEG[ICD9: 719.46] Diagnosis: UNSPECIFIED ASTHMA[ICD9: 493.90] Diagnosis: Costalchondritis[ICD9: 733.6] Aicha Thompson MD, [facility] CPT- 4: 86740 12/21/2011 ([id number]) 70746 EST. PATIENT, LEVEL IV Diagnosis: Hyperlipidemia[ICD9: 272.4] Diagnosis: ALLERGIC RHINITIS[ICD9: 477.9] Diagnosis: B12 deficiency[ICD9: 266.2] Diagnosis: Hypopotassemia[ICD9: 276.8] Valentina Thompson MD, [facility] CPT-4: 97954 10/02/2011 ([id number]) 57033 EST. PATIENT, LEVEL IV Diagnosis: Pain in joint involving forearm[ICD9: 719.43] Diagnosis: Neck pain[ICD9: 723.1] Diagnosis: Fall on same level from slipping, tripping, or stumbling[ICD9: E885.9 ] Diagnosis: B12 deficiency[ICD9: 266.2] Aicha Thompson MD, [facility] CPT- 4: 61377 09/01/2011 ([id number]) 23215 EST. PATIENT, LEVEL IV Diagnosis: Vulvovaginitis[ICD9: 616.10] Diagnosis: OVERWEIGHT[ICD9: 278.02] Diagnosis: MYALGIA AND MYOSITIS[ICD9: 729.1] Aicha Thompson MD, [facility] CPT-4: 52982 08/03/2011 ([id number]) 10687 EST. PATIENT, LEVEL IV Diagnosis: MUSCLE/LIGAMENT DIS NEC[ICD9: 728.89] Diagnosis: CHRONIC PAIN SYNDROME[ICD9: 338.4] Diagnosis: Weight gain[ICD9: 783.1] Aicha Thompson MD, [facility] CPT-4: 58278 06/29/2011 24041 EST. PATIENT, LEVEL IV Diagnosis: Wrist pain[ICD9: 719.43] Diagnosis: Knee pain, right[ICD9: 719.46] Diagnosis: Fall on same level from slipping, tripping, or stumbling[ICD9: E885.9 ] Aicha Thompson MD, [facility] CPT-4: 60505 06/22/2011 45439 EST. PATIENT, LEVEL IV Diagnosis: MUSCLE/LIGAMENT DIS NEC[ICD9: 728.89] Diagnosis: JOINT PAIN-L/LEG[ICD9: 719.46] Diagnosis: OSTEOARTH NOS-UNSPEC[ICD9: 715.90] Diagnosis: B12 deficiency[ICD9: 266.2] Aicha Thompson MD, [facility] CPT- 4: 11563 06/11/2011 64223 EST. 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 PATIENT, LEVEL IV Diagnosis: Knee pain, bilateral[ICD9: 719.46] Diagnosis: Iliotibial band syndrome[ICD9: 728.89] Diagnosis: Fibromyalgia syndrome[ICD9: 729.1] Aicha Thompson MD, [facility] CPT-4: 12863 02/12/2011 58103 EST. PATIENT, LEVEL IV Diagnosis: FALL FROM SLIPPING[ICD9: E885.9] Diagnosis: Pain in joint involving lower leg[ICD9: 719.46] Diagnosis: ESOPHAGEAL REFLUX[ICD9: 530.81] Diagnosis: ESSENTIAL HYPERTENSION[SNOMED: [id number]] [facility] CPT-4: 39754 01/29/2011 Plan of Care Planned Activity Notes [...] psychiatrist. 06/01/2018 Appointment: Aicha Thompson [facility]Ptel: [address] [facility] [place] [facility] (30 min) Complex 06/01/2018 Patient Education: Patient Medication Summary Completed 06/01/2018 Patient Education: Back Pain Completed 06/01/2018 Patient Education: Hypertension Completed 06/01/2018 Patient Education: Obesity Completed 06/01/2018 [facility]ment: [phone] (15 min) Moderate 04/18/2018 Visit Plan: Hypertension [...] the hydrocodone. 04/05/2018 Appointment: Aicha Thompson WPtel: [facility]5 [facility] (30 min) Complex 04/05/2018 Patient Education: Patient Medication Summary Completed 04/05/2018 Appointment: Aicha Thompson WPtel: [facility] [place] [facility] (15 min) Moderate 03/17/2018 Visit Plan: Hypertension [...] weeks 03/10/2018 Appointment: Valentina Smith WPtel: 101[address] [phone] (15 min) Moderate 03/10/2018 Appointment: Aicha Thompson WPtel: [facility]8 [facility] [place] (15 min) Moderate 03/10/2018 Patient Education: [...] appt scheduled 01/13/2018 Appointment: Valentina Smith WPtel: [facility]2 [phone] (15 min) Moderate 01/13/2018 Patient Education: [...] current medications. 11/25/2017 Appointment: Valentina Smith WPtel: [facility]3 [phone] [place] (30 min) Complex 11/25/2017 Patient Education: Patient Medication Summary Completed 11/25/2017 Visit Plan: Contact dermatitis-discussed natural and expected course of this diagnosis and to alert me if symptoms do not resolve or if any worse. RX sent to patient's pharmacy and instructed on use. 10/19/2017 Appointment: [phone] [place] (15 min) Moderate 10/19/2017 Patient Education: Patient Medication Summary Completed 10/19/2017 Appointment: Valent[facility] Smith [phone] [place] (30 min) Complex 09/27/2017 Visit Plan: Generalized abd fqev-DRI-hztuqo cipro/flagyl- culture urine-recommend patient follow up with Dr Grace for an appt if abdominal pain does not improve Low potassium-check labs 09/17/2017 Visit Plan: Generalized abd jceb-FXW-ehzmsm cipro/flagyl- culture urine-recommend patient follow up with Dr Grace for an appt if abdominal pain does not improve Low potassium-check labs 09/17/2017 Appointment: Valentina Smith WPtel: [phone] [place] (30 min) Complex 09/17/2017 Patient Education: [...] of over-medication. 09/06/2017 Appointment: Aicha Thompson WPtel: [facility] [place] [facility] [place] (30 min) Complex 09/06/2017 Patient Education: Patient Medication Summary Completed 09/06/2017 Appointment: Aicha Thompson WPtel: [facility] [place] [address] [place] (30 min) Complex 09/02/2017 Appointment: Aicha Thompson WPtel: [facility] [place] [address] [place] (30 min) Complex 08/23/2017 Visit Plan: Headaches-neck pain-patient is to let us know which neurologist she wants to see B12 def-injection today in the office Hyperlipidemia-check labs Vitamin D def-check level 08/19/2017 Appointment: Valent[facility] Smith [phone] (30 min) Complex 08/19/2017 Patient Education: Patient [...] the list of the neurologists that her director of enterprise applications has recommended and we would consider a [...] the list of the neurologists that her director of enterprise applications has recommended and we would consider a [...] the psychiatrist. 07/06/2017 Appointment: Aicha Thompson WPtel: [address] [facility] [address] (30 min) Complex 07/06/2017 Patient Education: Patient Medication Summary Completed 07/06/2017 Appointment: Aicha Thompson WPtel: [address] [facility] [place] [address] [place] (30 min) Complex 07/05/2017 Appointment: Valentina Smith WPtel: [address] [phone] [place] (30 min) Complex 05/17/2017 Appointment: Beatriz Mojica WPtel: [facility] (30 min) Complex 05/14/2017 Visit Plan: Neck yvtp-axmurjl-usbqglb to continue f/u with [facility]-her symptoms have [...] of plan. 04/27/2017 Appointment: Valentina Smith WPtel: [facility]5 [phone] (30 min) Complex 04/27/2017 Patient Education: Patient Medication Summary Completed 04/27/2017 Patient Education: Obesity Completed 04/27/2017 Visit Plan: Hemorrhoidal skin tag-no acute inflammation today -may use hemorrhoid cream as directed as needed-call with any concerns, bleeding, etc. 04/06/2017 Appointment: Valentina Smith WPtel: [facility]5 [phone] (30 min) Complex 04/06/2017 Patient Education: Patient Medication Summary Completed 04/06/2017 Patient Education: Obesity Completed 04/06/2017 Visit Plan: Bilateral foot and ankle pain-now has AFOs-we have made her several appt with podiatrists which she has not kept-recommend patient call Dr Saunders and reschedule appt with him. Neck pain-[facility] appt next week-KEEP APPOINTMENT! 02/25/2017 Appointment: Valentina Smith WPtel: [facility]5 [phone] (30 min) Complex 02/25/2017 [...] podiatry for evaluation-wants to see someone in [place] 11/17/2016 Appointment: Valentina Smith WPtel: [facility]8 [phone] (30 min) Complex 11/17/2016 Patient Education: Patient Medication Summary Completed 11/17/2016 Appointment: Valentina Smith WPtel: [phone] (30 min) Complex 11/16/2016 Visit Plan: [place] referral - pt to indicate when and who she would like to go to - for neck and back AFO for both legs - [facility] in [place], [place]- fax #[phone] pt has been seen by medical accounts receivable specialist - need brace because of bilateral [...] over- medication. 10/12/2016 Appointment: Aicha Thompson WPtel: [facility] [place] [facility] (30 min) Complex 10/12/2016 Patient Education: Patient Medication Summary Completed 10/12/2016 Patient Education: Obesity Completed 10/12/2016 Appointment: Injection 09/11/2016 Patient Education: Patient Medication Summary Completed 09/11/2016 Visit Plan: Right ankle pain/instability-xray negative- will obtain MRI ankle Ulcer right foot-instructed patient on wound care and the importance of keeping wound clean-f/u in 10-14 days for re-evaluation 08/18/2016 Appointment: Valentina Smith WPtel: [facility]5 [phone] [place] (30 min) Complex 08/18/2016 Patient Education: Patient Medication Summary Completed 08/18/2016 Patient Education: Obesity Completed 08/18/2016 Care Plan: X-RAY EXAM NECK SPINE 2-3 VW LOINC : 77676-2 Pending 08/15/2016 Visit Plan: Vaginal yeast infection-RX for diflucan B12 deficiency-check labs 08/07/2016 Appointment: Valentina Smith WPtel: [phone] [place] (30 min) Complex 08/07/2016 Patient Education: Patient Medication Summary Completed 08/07/2016 Visit Plan: Cervical stenosis-saw Dr Ramey-Dr Ramey is going to send her to for further evaluation Bilateral ankle pain-xray ankles 07/31/2016 Appointment: Valentina Smith WPtel: [facility]5 [phone] [place] (30 min) Complex 07/31/2016 Patient Education: Patient Medication Summary Completed 07/31/2016 Patient Education: Obesity Completed 07/31/2016 Visit Plan: Neck pain after fall - Will check x-ray, Pt is to follow up with Dr. Perez. Pt is to notify clinic if symptoms do not improve , if they worsen, or with any questions or concerns. 07/15/2016 Appointment: Beatriz Mojica WPtel: [facility]5 [facility] [place] (30 min) Complex 07/15/2016 Patient [...] Appointment: Injection 07/03/2016 Appointment: Valent[phone] (30 min) Complex 07/03/2016 Patient Education: Patient [...] PT. 05/07/2016 Appointment: Valentina Smith [facility]el[phone] (30 min) Complex 05/07/2016 Patient Education: Patient Medication Summary Completed 05/07/2016 Patient Education: Obesity Completed 05/07/2016 Care Plan: MRI NECK SPINE W/O DYE LOINC : 85954-6 Pending 05/07/2016 Visit Plan: Chronic Depression and [...] monitor symptoms 04/20/2016 Appointment: Valentina Smith WPtel: [facility]5 [phone] (30 min) Complex 04/20/2016 Patient Education: Patient Medication Summary Completed 04/20/2016 Appointment: Valentina Smith WPtel: [address] [place], [place] [phone] (30 min) Complex 03/19/2016 Visit Plan: Chronic [...] Dr Ibarra 03/17/2016 Appointment: Valentina Smith WPtel: [address] [place] [phone] (30 min) Complex 03/17/2016 Patient Education: Patient [...] current medications. 02/28/2016 Appointment: Valentina Smith WPtel: [address] [place] [address] (15 min) Moderate 02/28/2016 Patient Education: Patient Medication Summary Completed 02/28/2016 Appointment: Valentina Smith WPtel: [address] [place], [place] [phone] (30 min) Complex 02/27/2016 Visit Plan: Hypertension [...] d level 02/13/2016 Appointment: Valentina Smith WPtel: [address] [place], [place] [phone] (30 min) Complex 02/13/2016 Patient Education: Patient Medication Summary Completed 02/13/2016 Patient Education: Obesity Completed 02/13/2016 Care Plan: Tsh Pending 02/13/2016 Care Plan: Lipid Pending 02/13/2016 Care Plan: Comp Metabolic patient to come fasting Pending 02/13/2016 Care Plan: Vitamin D 25 Oh Cancelled 02/13/2016 Care Plan: Cbc With Differential Pending 02/13/2016 Patient Education: Patient Medication Summary Completed 02/03/2016 Care Plan: SCREENINGMAMMOGRAPHYDIGITAL LOINC : 65475-5 Pending 02/03/2016 Appointment: Injection 01/15/2016 Appointment: Lab [...] EXAM NECK SPINE 2-3 VW LOINC : 46355-5 Ordered 08/15/2015 Visit Plan: Anxiety-fairly well controlled-does [...] feet and ankle instability/pain. Refer patient to [facility] for aqua therapy. Patient verbalized understanding [...] side effects. 05/08/2015 Appointment: Aicha Thompson WPtel: [address] [place] [address] (30 min) [facility] 05/08/2015 Patient Education: Patient Medication [...] Care Plan: COMPLETE CBC AUTOMATED LOINC : 32770-1 Ordered 10/05/2014 Visit Plan: Chronic Pain Syndrome - pt has chronic pain - has been maintained on current medications, has not sought out other medications , only uses PRN pain medications as directed, and understands the consequences of over-medication. Right hip/knee/ankle pain-improving since last fall- continue physical therapy exercises-continue supportive shoes and use walker for stability 06/14/2014 Appointment: Valentina Smith WPtel: [facility] [address] Follow up 06/14/2014 Patient Education: Patient Medication [...] the instructions given to her from her debone processing supervisor and she is to call him if her constipation is uncontrolled. Hemorrhoids-use suppositories as directed. 01/19/2014 Patient Education: Patient Medication Summary Completed 01/19/2014 Visit Plan: Ulcer of qzga-tyrtdlr-gggdi instructions provided today and instructed patient to return as directed-keep wound clean and dry. Hemorrhoids-refill anusol suppositories and use as directed B12 deficiency-b12 injection today in the office Fabpjcurp-qvebhdzhtnzo-tbasjzh injection today in the office-continue oral medications [...] Anemia-check labs 10/20/2013 Appointment: Valentina Smith WPtel: 1015 [phone] Other 10/20/2013 Patient Education: Patient Medication Summary Completed 10/20/2013 Appointment: Valentina Smith WPtel: [phone] [place] Injection 08/21/2013 Appointment: Aicha Thompson WPtel: [address] [place], [place] [phone] Follow up 07/31/2013 Visit Plan: Ulcer of knee healing-silver nitrate to granulation tissue-instructed patient to monitor and call if it does not completely heal for appointment-instructed on wound care-patient and mother verbalized understanding of plan. 07/24/2013 Patient Education: Patient Medication Summary Completed 07/24/2013 Patient Education: Patient Medication Summary Completed 07/24/2013 Appointment: Valentina Smith WPtel: [facility]5 [phone] Follow up 07/03/2013 Visit Plan: Ulcer-left knee-fibrous tissue removed from wound bed to reveal pink granulation tissue-wound cleansed and dressing applied. Instructed patient on wound care. Return in 10 days for follow up. 06/23/2013 Appointment: Valentina Smith WPtel: [address] [place], [place] [phone] Follow up 06/23/2013 Patient Education: Patient Medication Summary Completed 06/23/2013 Appointment: Valentina Smith WPtel: [address] [place], [place] [phone] Follow up 06/22/2013 Appointment: Aicha Thompson WPtel: [address] [place], [place] [phone] [place] Follow up 06/22/2013 Visit Plan: Ulcer-left knee-fibrous tissue removed from wound bed to reveal pink granulation tissue-wound cleansed and dressing applied. Instructed patient on wound care. Return in 10 days for follow up. 06/12/2013 Appointment: Valentina Smith WPtel: [address] [place], [place] [phone] [place] Follow up 06/12/2013 Patient Education: Patient Medication Summary Completed 06/12/2013 Appointment: Aicha Thompson WPtel: [address] [place], [place] [phone] Follow up 06/08/2013 Visit Plan: Ulcer left wepb-ydgnrcrx-v/u in 10 days 05/29/2013 Appointment: Valentina Smith WPtel: [address] [place], [place] [phone] Follow up 05/29/2013 Patient Education: Patient Medication Summary Completed 05/29/2013 Visit Plan: Ulcer of knee-sharp debridement today in the office--wound care instructions provided for patient-patient and mother verbalized understanding of plan. Follow up next week. 05/23/2013 Appointment: Valentina Smith WPtel: [address] [place], [place] [phone] Follow up 05/23/2013 Patient Education: Patient Medication Summary Completed 05/23/2013 Appointment: Valentina Smith WPtel: [address] [place], [place] [phone] Follow up 05/22/2013 Visit Plan: Ulcer of knee-wound care instructions provided for patient-patient and mother verbalized understanding of plan. 05/19/2013 Appointment: Valentina Smith WPtel: [address] [place], [place] [phone] [facility] 05/19/2013 Patient Education: Patient Medication Summary Completed 05/19/2013 Visit Plan: Ulcer of knee-fibrous tissue debrided today in the office--wound care instructions provided for patient-return in 1 week for follow up. 05/16/2013 Appointment: Valentina Smith WPtel: [address] [place], [place] [phone] [facility] follow up 05/16/2013 Patient Education: Patient Medication Summary Completed 05/16/2013 Appointment: Aicha Thompson WPtel: [address] [place], [place] [phone] Injection 05/10/2013 Patient Education: Patient Medication Summary [...] injection today in the office. 03/06/2013 Appointment: Luis Valentina WPtel: 1018 [phone] Other 03/06/2013 Patient Education: Patient Medication Summary Completed 03/06/2013 Appointment: Aicha Thompson WPtel: 1019 [facility] Nurse Visit 02/20/2013 Patient Education: Patient Medication Summary Completed 02/20/2013 Appointment: Aicha Thompson WPtel: 1016 [facility] Follow up 01/16/2013 Visit Plan: Joint pain [...] concerns. 12/26/2012 Appointment: Aicha Thompson WPtel: [address] [facility] [place] Other 12/26/2012 Patient Education: Patient Medication Summary Completed 12/26/2012 Patient Education: Hypertension Completed 12/26/2012 Appointment: Aicha Thompson WPtel: [facility]5 [facility] [place] Lab Draw 12/21/2012 Patient Education: Patient [...] acute changes 11/21/2012 Appointment: Aicha Thompson WPtel: [facility] [place] Follow up 11/21/2012 Patient Education: Patient Medication Summary Completed 11/21/2012 Patient Education: Hypertension Completed 11/21/2012 Appointment: Aicha Thompson WPtel: [facility] [place] Injection 11/16/2012 Patient Education: Patient Medication Summary Completed 11/16/2012 Appointment: Aicha Thompson WPtel: [address] [place] [address] [place] Injection 09/28/2012 Patient Education: Patient Medication Summary Completed 09/28/2012 Appointment: Aicha Thompson WPtel: [address] [place] [address] [place] Injection 09/26/2012 Patient Education: Patient Medication Summary Completed 09/26/2012 Appointment: Aicha Thompson WPtel: [address] [facility] [address] [place] Injection 09/12/2012 Patient Education: Patient Medication Summary Completed 09/12/2012 Appointment: Aicha Thompson WPtel: [address] [facility] [address] [place] Injection 08/11/2012 Patient Education: Patient Medication [...] management sparingly. 07/13/2012 Appointment: Aicha Thompson WPtel: [address] [facility] [address] [place] Other 07/13/2012 Patient Education: Patient Medication [...] in medications 05/26/2012 Appointment: Valentina Smith WPtel: [address] [place] [address] Other 05/26/2012 Patient Education: Patient Medication Summary Completed 05/26/2012 Appointment: Valentina Smith WPtel: [address] [place], [place] [phone] [place] [address] Sick 03/15/2012 Appointment: Aicha Thompson WPtel: [facility]7 [facility]66[facility] Injection 03/02/2012 Patient Education: Patient Medication Summary [...] the medication. 02/15/2012 Appointment: Valentina Smith WPtel: [address] [place], [place] [phone] [place] [address] Other 02/15/2012 Patient Education: Patient Medication Summary [...] to medications 01/13/2012 Appointment: Valentina Smith WPtel: [facility] [facility] Other 01/13/2012 Patient Education: Patient Medication Summary Completed 01/13/2012 Appointment: Valentina Smith WPtel: [address] [place] [address] Other 01/06/2012 Visit Plan: Asthma - chest xray and symbicort sample today. Patellofemoral syndrome- recommended physical therapy. Costochondritis - recommended pt to use antiinflammatories as able for treatment of rib/sternum irritation and for pt to call if her symptoms do not improve. 12/21/2011 Appointment: Aicha Thompson WPtel: [facility] [address] Other 12/21/2011 Patient Education: Patient Medication Summary [...] the office. 10/02/2011 Appointment: Valentina Smith WPtel: [facility]9 [phone] Other 10/02/2011 Patient Education: Patient Medication Summary Completed 10/02/2011 Visit Plan: Pain in joints-arms, elbows-recent fall- discussed natural and expected course of this diagnosis and to alert me if symptoms do not follow expected course, or if any worse. Patient verbalized understanding. Neck oxim-ywodbpy-oiccbvmxj physical therapy-patient declined at this time-going to see the care connector this afternoon. B12 deficiency-B12 injection today in the office. 09/01/2011 Appointment: [facility] [id number] Other 09/01/2011 Patient Education: Patient Medication Summary [...] sparingly. 08/03/2011 Appointment: Aicha Thompson WPtel: [address] [facility] [place] Follow up 08/03/2011 Patient Education: Patient Medication [...] HER PAIN. 06/29/2011 Appointment: Aicha Thompson WPtel: [facility]5 [facility] Follow up 06/29/2011 Patient Education: Patient Medication Summary Completed 06/29/2011 Appointment: Aicha Thompson WPtel: [facility] [place] Other 06/24/2011 Visit Plan: Right knee pain, bilateral wrist pain-recent fall-discussed natural and expected course of this diagnosis and to alert me if symptoms do not follow expected course, or if any worse. Patient verbalized understanding. Recommend follow up with Ortho physician if pain persists. 06/22/2011 Appointment: Valentina Smith WPtel: [facility]3 [phone] [place] Other 06/22/2011 Patient Education: Patient Medication Summary Completed 06/22/2011 Visit Plan: Knee and Ankle pain and instability- recommend re-evaluation by an clinical education specialist at [facility] the [address] [place] [address]. Pt has been recommended to go back to Dr. Corbin at [facility] of the [address] [place] [address] as my office did not get a [...] of fibromyalgia. 06/11/2011 Appointment: Aicha Thompson WPtel: [facility] [place] Injection 06/11/2011 Appointment: IndependenceSvetlana gandhiy WPtel: [address] [facility] Other 06/11/2011 Patient Education: Patient Medication Summary Completed 06/11/2011 Visit Plan: Knee and Ankle pain and instability- recommend evaluation by an clinical education specialist at [facility]. [...] physical appearance. 03/11/2011 Appointment: Aicha Thompson WPtel: [address] [place], [place] [id number] Other 03/11/2011 Patient Education: Patient Medication Summary Completed 03/11/2011 Patient Education: .Amazing charts Diabetic meal planning guide Completed 03/11 Appointment: Aicha Thompson WPtel: [facility] [place] Injection 02/23/2011 Patient Education: Patient Medication Summary Completed 02/23/2011 Visit Plan: iliotibial band syndrome - continue with current treatment per care connector. I have recommend use of biofreeze to the right outer leg. I have given pt stretching exercises for home. Fibromyalgia - chronic - continue with exercise, heat, and prn pain medication. Knee pain - apparently resolved prior to her appointment today. No change in present management, call if pain returns. 02/12/2011 Appointment: Aicha Thompson WPtel: [address] [facility] Other 02/12/2011 Patient Education: Patient Medication Summary [...] directed, and understands the consequences of over-medication. Racielithmable is to continue to taper down on [...] appt with Dr Ibarra . Ulcer left jwkn-giglktpc-f/u in 10 days . Hemorrhoidal skin tag-no acute inflammation today -may use hemorrhoid cream as directed as needed-call with any concerns, bleeding, etc. sleep study -[facility] . Headaches-patient is not wearing her CPAP and i suspect this may be contributing to her headaches-will contact [facility] for a new sleep study Neck pain -spinal stenosis -[facility] have instructed her to call them and get appt scheduled Dr Saunders -[facility] . Bilateral foot and [...] Hyperlipidemia-check labs Vitamin D def-check level . 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 Hemorrhoids-use suppositories as directed. . Anxiety-fairly well controlled-does have added stress with family-no change in medications-call if symptoms worsen Neck pain-recommend rest, ice and anti inflammatories as directed-call if symptoms do not resolve or if any worse. Patient verbalized understanding of plan. . iliotibial band syndrome - continue with current treatment per care connector. I have recommend use of biofreeze to [...] and instability- recommend re- evaluation by an clinical education specialist at [facility] the [address] [place] [address]. Pt has been recommended to go back to Dr. Corbin at [facility] [place] as my office did not get a [...] savella for treatment of fibromyalgia. REFER TO [facility] DX BILATERAL FOOT AND ANKLE PAIN . Bilateral foot pain-foot drop-patient getting AFOs-refer to podiatry for evaluation-wants to see someone in [place] [facility] NECK AND BRAIN Call [facility] [...] the list of the neurologists that her director of enterprise applications has recommended and we would consider a [...] the list of the neurologists that her director of enterprise applications has recommended and we would consider a [...] if any worse. Patient verbalized understanding. Neck maua-novkxee-gfwymnlwx physical therapy-patient declined at this time- going to see the care connector this afternoon. B12 deficiency-B12 injection today in [...] today in the office. . Ulcer of qajb-dpbzlgl-owrkj instructions provided today and instructed patient to return as directed-keep wound clean and dry. Hemorrhoids-refill anusol suppositories and use as directed B12 deficiency-b12 injection today in the office Zypvuurev-rrjbwrojlvjd-benmlsy injection today in the office-continue oral medications [...] in blood pressure readings at home. . Generalized abd xahd-FTT-qfkdks cipro/flagyl-culture urine-recommend patient follow up with Dr Grace for an appt if abdominal pain does not improve Low potassium-check labs . Generalized abd wnzq-PZO-wdmodk cipro/flagyl-culture urine-recommend patient follow up with Dr [...] for acute changes B12 injection . Neck umkb-tdtscsc-xvwjtpr to continue f/u with [facility]-her symptoms have [...] regimen-no changes in medications Dr. Ramey - [facility] . Hypertension - well controlled - continue [...] pain and instability- recommend evaluation by an clinical education specialist at [facility]. [...] (may be called three old goats) at [facility] [employer] and home. . Hypertension - well controlled [...] Ramey is going to send her to [facility] for further evaluation Bilateral ankle pain-xray ankles [...]
[2018-08-03 07:21] LABS: BILIRUBIN,URINE NEGATIVE (NEGATIVE); CLARITY,URINE CLEAR; COLOR,URINE YELLOW; GLUCOSE, URINE (UA) NEGATIVE (NEGATIVE); KETONES,URINE 1+ (NEGATIVE); LEUKOCYTE ESTERASE ,URINE 1+ (NEGATIVE); NITRITE,URINE NEGATIVE (NEGATIVE); PH,URINE 5 (5-9); PROTEIN,URINE 1+ (NEGATIVE); UROBILINOGEN,URINE NORMAL (NORMAL)
--- OUTSIDE RECORDS SUMMARY | 2018-08-03 07:22 | XMS REPORT | CCD ---
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 Name Role Phone PP Unavailable CCM Unavailable Summary Purpose Interface Exchange Insurance Providers Payer name Policy type / Coverage type Covered democrat ID Effective Begin Date Effective End Date WPS Medicare Part B Medicare Part B [id number] 2013 Unknown [facility] Medicare Part B [id number] 2013 Unknown Family history Grandmother Diagnosis Age [...] status Unknown 01/29/[address]: 711040876 Never smoker 01/29/[address]: 920229 Currently drinks alcohol mixed drink before bed [...] sleep apnea Unknown Active 05/14/2011 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 03/11/2011 Unknown Overweight (BMI [...] Active sleep apnea Unknown 05/14/2011 Active DI[employer]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 03/11/2011 Active Overweight (BMI 25.0-29.9) [...] Start Date Stop Date Status Fill Instructions Lipitor 20 mg tablet RxNorm: 985073 1 TABLET(S) PO DAILY 201705/12/2019 Active TAKE ONE TABLET BY MOUTH EVERY NIGHT AT BEDTIME tramadol 50 mg tablet RxNorm: 152882 1-2 Tablet(s) PO TID as needed 04/20/2018 06/18/2018 Active Valium 10 mg tablet RxNorm: 758545 1 Tablet(s) daily as needed 04/18/2018 05/31/2018 Inactive hydrocodone 10 mg-acetaminophen 325 mg tablet RxNorm: 516337 1 tab bid x 1 week then daily x 2 weeks then stop Tablet(s) PO Q6 for pain 04/1805/10/2018 Inactive diazepam 10 mg tablet RxNorm: 160508 1 Tablet(s) BID 04/18/2018 06/12/2018 Inactive Claritin-D 12 Hour 5 mg-120 mg tablet,extended release RxNorm: 2832106 Tablet(s) as needed TAKE 1 TABLET BY MOUTH TWICE DAILY NEEDED 201706/12/2018 Inactive tramadol 50 mg tablet RxNorm: 074299 1-2 Tablet(s) PO TID as needed 03/10/2018 04/07/2018 Inactive cyanocobalamin (vit B-12) 1,000 mcg/mL injection solution RxNorm: 497657 1 Milliliter(s) Inj 03/10/2018 03/10/2018 Inactive Seroquel 100 mg tablet RxNorm: 847590 1 TABLET(S) PO BID 201703/01/2019 Active TAKE 1 TABLET BY MOUTH TWICE DAILY hydrocodone 10 mg-acetaminophen 325 mg tablet RxNorm: 516191 1-2 Tablet(s) PO Q6 as needed for pain 02/21/2018 03/09/2018 Inactive Ventolin HFA 90 mcg/actuation aerosol inhaler RxNorm: 488560 1 OR 2 PUFF(S) INH Q6 PRN NEEDED 01/13/2018 07/11/2018 Active trazodone 100 mg tablet RxNorm: 584422 TABLET(S) TAKE 2 TABLETS BY MOUTH EVERY NIGHT AT BEDTIME 12/07/2017 09/02/2018 Active hydrocodone 10 mg-acetaminophen 325 mg tablet RxNorm: 518959 1-2 Tablet(s) PO Q6 as needed for pain 12/03/2017 12/25/2017 Inactive Ventolin HFA 90 mcg/actuation aerosol inhaler RxNorm: 231424 1 OR 2 PUFF(S) INH Q6 PRN NEEDED 11/26/2017 01/12/2018 Inactive Savella 100 mg tablet RxNorm: 198236 TABLET(S) PO TAKE 1 TABLET BY MOUTH DAILY 11/23/2017 No Stop Date Active Effexor XR 150 mg capsule,extended release RxNorm: 390830 1 CAPSULE(S) PO BID 1 CAPSULE(S) PO BID 11/23/2017 04/21/2018 Inactive TAKE 1 CAPSULE BY MOUTH TWICE DAILY Claritin-D 12 Hour 5 mg-120 mg tablet,extended release RxNorm: 4692833 Tablet(s) as needed TAKE 1 TABLET BY MOUTH TWICE DAILY NEEDED 201701/20/2018 Inactive diazepam 10 mg tablet RxNorm: 918596 Tablet(s) TAKE 1 TABLET BY MOUTH FOUR TIMES DAILY NEEDED 11/23/2017 03/09/2018 Inactive Valium 10 mg tablet RxNorm: 047165 1 Tablet(s) QID as needed 11/16/2017 01/14/2018 Inactive metoprolol tartrate 25 mg tablet RxNorm: 280497 TABLET(S) TABLET(S) 1/2 TABLET(S) PO BID TAKE 1/2 TABLET BY MOUTH TWICE DAILY 11/12/2017 No Stop Date Active pantoprazole 40 mg tablet,delayed release RxNorm: 556120 TAKE 1 TABLET BY MOUTH EVERY DAY 11/12/2017 05/10/2018 Inactive betamethasone dipropionate 0.05 % topical cream RxNorm: 555073 1 APPLICATION TOP BID 10/22/2017 11/04/2017 Inactive tramadol 50 mg tablet RxNorm: 568234 1-2 Tablet(s) PO TID as needed 10/20/2017 01/16/2018 Inactive prednisone 10 mg tablets in a dose pack RxNorm: 436879 1 Tablet(s) PO UD 10/19/2017 10/24/2017 Inactive 6-5-4-3-2-1 cyanocobalamin (vit B-12) 1,000 mcg/mL injection solution RxNorm: 069475 1 Milliliter(s) Inj 10/19/2017 10/19/2017 Inactive betamethasone dipropionate 0.05 % topical cream RxNorm: 626323 1 Application TOP BID 10/19/2017 10/21/2017 Inactive hydrocodone 10 mg-acetaminophen 325 mg tablet RxNorm: 422875 1-2 Tablet(s) PO Q6 as needed for pain 10/19/2017 11/10/2017 Inactive Effexor XR 150 mg capsule,extended release RxNorm: 554227 1 Capsule(s) PO BID 1 CAPSULE(S) PO BID 10/19/2017 11/22/2017 Inactive TAKE 1 CAPSULE BY MOUTH TWICE DAILY prednisone 5 mg tablet RxNorm: 898848 1 Tablet(s) PO UD 2017 No Stop Date Active Cipro 500 mg tablet RxNorm: 368540 1 Tablet(s) PO BID 201709/26/2017 Inactive Flagyl 500 mg tablet RxNorm: 117770 1 Tablet(s) PO TID 201709/26/2017 Inactive prednisone 10 mg tablet RxNorm: 057348 1 Tablet(s) PO UD 201709/16/2017 Inactive 2 tabs daily x 3 days 1 tab daily x 3 daily then resume usual 5mg daily hydrocodone 10 mg-acetaminophen 325 mg tablet RxNorm: 070099 1-2 Tablet(s) PO Q6 as needed for pain 09/10/2017 10/02/2017 Inactive Savella 100 mg tablet RxNorm: 528114 TABLET(S) PO TAKE 1 TABLET BY MOUTH DAILY 08/31/2017 No Stop Date Active cyanocobalamin (vit B-12) 1,000 mcg/mL injection solution RxNorm: 636520 1 Milliliter(s) Inj 08/19/2017 08/19/2017 Inactive pantoprazole 40 mg tablet,delayed release RxNorm: 414643 TAKE 1 TABLET BY MOUTH EVERY DAY 08/17/2017 11/11/2017 Inactive trazodone 100 mg tablet RxNorm: 740213 TABLET(S) TAKE 2 TABLETS BY MOUTH EVERY NIGHT AT BEDTIME 08/17/2017 12/06/2017 Inactive Ventolin HFA 90 mcg/actuation aerosol inhaler RxNorm: 373351 1 OR 2 PUFF(S) INH Q6 PRN NEEDED 08/11/2017 01/07/2018 Inactive Advair Diskus 250 mcg-50 mcg/dose powder for inhalation RxNorm: 4295699 1 Puff(s) INH BID 08/11/2017 12/08/2017 Inactive Advair Diskus 250 mcg-50 mcg/dose powder for inhalation RxNorm: 3077006 1 PUFF(S) INH BID 08/11/2017 11/08/2017 Inactive Ventolin HFA 90 mcg/actuation aerosol inhaler RxNorm: 816614 1 OR 2 PUFF(S) INH Q6 PRN NEEDED 08/11/2017 11/25/2017 Inactive hydrocodone 10 mg-acetaminophen 325 mg tablet RxNorm: 434088 1-2 Tablet(s) PO Q6 as needed for pain 08/03/2017 08/25/2017 Inactive tramadol 50 mg tablet RxNorm: 263698 1-2 Tablet(s) PO TID as needed 07/26/2017 04/19/2018 Inactive Valium 10 mg tablet RxNorm: 239649 1 Tablet(s) QID as needed 07/09/2017 09/06/2017 Inactive Effexor XR 150 mg capsule,extended release RxNorm: 543036 Capsule(s) 1 CAPSULE(S) PO BID 07/07/2017 10/18/2017 Inactive TAKE 1 CAPSULE BY MOUTH TWICE DAILY metoprolol tartrate 25 mg tablet RxNorm: 468852 Tablet(s) TABLET(S) 1/2 TABLET(S) PO BID TAKE 1/2 TABLET BY MOUTH TWICE DAILY 07/07/2017 11/11/2017 Inactive diazepam 10 mg tablet RxNorm: 229259 Tablet(s) TAKE 1 TABLET BY MOUTH FOUR TIMES DAILY NEEDED 07/07/2017 08/02/2017 Inactive cyanocobalamin (vit B-12) 1,000 mcg/mL injection solution RxNorm: 588366 1 Milliliter(s) Inj 07/06/2017 07/06/2017 Inactive tramadol 50 mg tablet RxNorm: 025475 1-2 Tablet(s) PO TID as needed 06/21/2017 09/17/2017 Inactive hydrocodone 10 mg-acetaminophen 325 mg tablet RxNorm: 404515 1-2 Tablet(s) PO Q6 as needed for pain 06/17/2017 07/09/2017 Inactive cyclobenzaprine 10 mg tablet RxNorm: 758099 TAKE 1 TABLET BY MOUTH THREE TIMES DAILY NEEDED FOR MUSCLE SPASMS 06/08/2017 08/31/2018 Active Claritin-D 12 Hour 5 mg-120 mg tablet,extended release RxNorm: 3468515 Tablet(s) as needed TAKE 1 TABLET BY MOUTH TWICE DAILY NEEDED 201709/04/2017 Inactive Lipitor 20 mg tablet RxNorm: 892414 1 TABLET(S) PO DAILY 201705/17/2018 Inactive TAKE ONE TABLET BY MOUTH EVERY NIGHT AT BEDTIME trazodone 100 mg tablet RxNorm: 328113 TABLET(S) TAKE 2 TABLETS BY MOUTH EVERY NIGHT AT BEDTIME 05/17/2017 08/14/2017 Inactive cyclobenzaprine 5 mg tablet RxNorm: 271633 Tablet(s) PO TAKE 1 TABLET BY MOUTH THREE TIMES DAILY NEEDED FOR MUSCLE SPASMS (New dose has not been sent to pharmacy) 05/11/2017 No Stop Date Active Valium 5 mg tablet RxNorm: 014061 1 Tablet(s) PO QID as needed (New dose has not been sent to pharmacy) 05/11/2017 Inactive diazepam 10 mg tablet RxNorm: 988684 TAKE 1 TABLET BY MOUTH FOUR TIMES DAILY NEEDED 04/28/2017 05/27/2017 Inactive hydrocodone 10 mg-acetaminophen 325 mg tablet RxNorm: 348027 1-2 Tablet(s) PO Q6 as needed for pain 04/27/2017 05/19/2017 Inactive cyanocobalamin (vit B-12) 1,000 mcg/mL injection solution RxNorm: 318094 1 Milliliter(s) Inj 04/27/2017 04/27/2017 Inactive hydrocodone 10 mg-acetaminophen 325 mg tablet RxNorm: 827185 1-2 Tablet(s) PO Q6 as needed for pain 03/17/2017 04/08/2017 Inactive Seroquel 100 mg tablet RxNorm: 641734 1 TABLET(S) PO BID 201603/06/2018 Inactive TAKE 1 TABLET BY MOUTH TWICE DAILY Valium 10 mg tablet RxNorm: 519509 1 Tablet(s) QID as needed 03/05/2017 05/03/2017 Inactive Claritin-D 12 Hour 5 mg-120 mg tablet,extended release RxNorm: 7356512 Tablet(s) as needed TAKE 1 TABLET BY MOUTH TWICE DAILY NEEDED 201604/13/2018 Inactive pantoprazole 40 mg tablet,delayed release RxNorm: 145054 TAKE 1 TABLET BY MOUTH EVERY DAY 02/26/2017 08/16/2017 Inactive tramadol 50 mg tablet RxNorm: 922243 1-2 Tablet(s) PO TID as needed 02/17/2017 05/17/2017 Inactive hydrocodone 10 mg-acetaminophen 325 mg tablet RxNorm: 214345 1-2 Tablet(s) PO Q6 as needed for pain 02/17/2017 03/11/2017 Inactive Valium 10 mg tablet RxNorm: 752273 1 Tablet(s) QID as needed 02/02/2017 03/03/2017 Inactive (Response to an electronic controlled substance refill request - RxReferenceNumber: [id number]|1|0|1) nystatin 100,000 unit/gram topical powder RxNorm: 829460 1 APPLICATION TOP QID UNTIL HEALED 01/21/2017 No Stop Date Active Advair Diskus 250 mcg-50 mcg/dose powder for inhalation RxNorm: 9944669 1 Puff(s) INH BID 01/21/2017 05/20/2017 Inactive hydrocodone 10 mg-acetaminophen 325 mg tablet RxNorm: 191278 1-2 Tablet(s) PO Q6 as needed for pain 01/21/2017 02/11/2017 Inactive metoprolol tartrate 25 mg tablet RxNorm: 267658 TABLET(S) 1/2 TABLET(S) PO BID TAKE 1/2 TABLET BY MOUTH TWICE DAILY 01/18/2017 07/06/2017 Inactive Effexor XR 150 mg capsule,extended release RxNorm: 147605 1 CAPSULE(S) PO BID 01/11/2017 07/06/2017 Inactive TAKE 1 CAPSULE BY MOUTH TWICE DAILY Effexor XR 150 mg capsule,extended release RxNorm: 475182 1 Capsule(s) PO BID 1 CAPSULE(S) PO BID 01/08/2017 07/06/2017 Inactive TAKE 1 CAPSULE BY MOUTH TWICE DAILY nystatin 100,000 unit/gram topical powder RxNorm: 218454 1 APPLICATION TOP QID UNTIL HEALED 12/17/2016 01/20/2017 Inactive hydrocodone 10 mg-acetaminophen 325 mg tablet RxNorm: 860493 1-2 Tablet(s) PO Q6 as needed for pain 12/17/2016 01/07/2017 Inactive Claritin-D 12 Hour 5 mg-120 mg tablet,extended release RxNorm: 5565651 Tablet(s) as needed TAKE 1 TABLET BY MOUTH TWICE DAILY NEEDED 201602/12/2017 Inactive Lipitor 20 mg tablet RxNorm: 770786 1 TABLET(S) PO DAILY 201606/07/2017 Inactive TAKE ONE TABLET BY MOUTH EVERY NIGHT AT BEDTIME Advair Diskus 250 mcg-50 mcg/dose powder for inhalation RxNorm: 0179955 1 Puff(s) INH BID 11/26/2016 01/20/2017 Inactive Valium 10 mg tablet RxNorm: 922350 1 Tablet(s) QID as needed 11/24/2016 01/22/2017 Inactive (Response to an electronic controlled substance refill request - RxReferenceNumber: [id number]|1|0|1) cyanocobalamin (vit B-12) 1,000 mcg/mL injection solution RxNorm: 804402 1 Milliliter(s) Inj 11/17/2016 11/17/2016 Inactive tramadol 50 mg tablet RxNorm: 775617 1-2 Tablet(s) PO TID as needed 11/06/2016 10/19/2017 Inactive hydrocodone 10 mg-acetaminophen 325 mg tablet RxNorm: 518859 1-2 Tablet(s) PO Q6 as needed for pain 11/06/2016 11/27/2016 Inactive nystatin 100,000 unit/gram topical powder RxNorm: 082304 1 Application TOP QID until healed 10/27/2016 12/16/2016 Inactive cyanocobalamin (vit B-12) 1,000 mcg/mL injection solution RxNorm: 163032 1 Milliliter(s) Inj 10/12/2016 10/12/2016 Inactive trazodone 100 mg tablet RxNorm: 259697 Tablet(s) TAKE 2 TABLETS BY MOUTH EVERY NIGHT AT BEDTIME 09/24/2016 03/22/2017 Inactive Valium 10 mg tablet RxNorm: 569203 1 Tablet(s) QID as needed 09/24/2016 11/22/2016 Inactive (Response to an electronic controlled substance refill request - RxReferenceNumber: [id number]|1|0|1) Savella 100 mg tablet RxNorm: 161194 TABLET(S) PO TAKE 1 TABLET BY MOUTH DAILY 09/18/2016 08/30/2017 Inactive pantoprazole 40 mg tablet,delayed release RxNorm: 513708 TAKE 1 TABLET BY MOUTH EVERY DAY 09/18/2016 02/25/2017 Inactive cyanocobalamin (vit B-12) 1,000 mcg/mL injection solution RxNorm: 642039 1 Milliliter(s) Inj 09/11/2016 09/11/2016 Inactive hydrocodone 10 mg-acetaminophen 325 mg tablet RxNorm: 382711 1-2 Tablet(s) PO Q6 as needed for pain 08/24/2016 11/05/2016 Inactive (Response to an electronic controlled substance refill request - RxReferenceNumber: [id number]|1|0|1) Claritin-D 12 Hour 5 mg-120 mg tablet,extended release RxNorm: 1995221 Tablet(s) TAKE 1 TABLET BY MOUTH TWICE DAILY NEEDED 08/13/2016 04/13/2018 Inactive tramadol 50 mg tablet RxNorm: 140498 1-2 Tablet(s) PO TID PRN as needed 08/11/2016 11/05/2016 Inactive metoprolol tartrate 25 mg tablet RxNorm: 297587 TABLET(S) 1/2 TABLET(S) PO BID TAKE 1/2 TABLET BY MOUTH TWICE DAILY 08/10/2016 01/17/2017 Inactive pantoprazole 40 mg tablet,delayed release RxNorm: 419576 TAKE 1 TABLET BY MOUTH EVERY DAY 08/10/2016 11/05/2016 Inactive Savella 100 mg tablet RxNorm: 957321 TABLET(S) PO TAKE 1 TABLET BY MOUTH DAILY 08/10/2016 11/05/2016 Inactive Ventolin HFA 90 mcg/actuation aerosol inhaler RxNorm: 662874 1 OR 2 PUFF(S) INH Q6 PRN NEEDED 08/07/2016 02/02/2017 Inactive Diflucan 150 mg tablet RxNorm: 578345 1 Tablet(s) PO daily 08/201608/13/2016 Inactive nystatin 100,000 unit/mL oral suspension RxNorm: 892244 5 Milliliter(s) PO QID 08/07/2016 08/16/2016 Inactive hydrocodone 10 mg-acetaminophen 325 mg tablet RxNorm: 921974 1-2 Tablet(s) PO Q6 as needed for pain 08/04/2016 08/23/2016 Inactive (Response to an electronic controlled substance refill request - RxReferenceNumber: [id number]|1|0|1) Valium 10 mg tablet RxNorm: 652756 1 Tablet(s) QID as needed 07/20/2016 09/17/2016 Inactive (Response to an electronic controlled substance refill request - RxReferenceNumber: [id number]|1|0|1) tramadol 50 mg tablet RxNorm: 033260 1-2 Tablet(s) PO TID PRN as needed 07/15/2016 11/05/2016 Inactive ok to give 1 month fhztwu=915 tablets cyanocobalamin (vit B-12) 1,000 mcg/mL injection solution RxNorm: 634474 Milliliter(s) Inj 07/03/2016 07/03/2016 Inactive Seroquel 100 mg tablet RxNorm: 934420 1 TABLET(S) PO BID 201603/15/2017 Inactive TAKE 1 TABLET BY MOUTH TWICE DAILY hydrocodone 10 mg-acetaminophen 325 mg tablet RxNorm: 235168 1-2 Tablet(s) PO Q6 as needed for pain 06/26/2016 08/03/2016 Inactive (Response to an electronic controlled substance refill request - RxReferenceNumber: [id number]|1|0|1) Valium 10 mg tablet RxNorm: 941365 1 Tablet(s) QID as needed 05/11/2016 07/09/2016 Inactive (Response to an electronic controlled substance refill request - RxReferenceNumber: [id number]|1|0|1) tramadol 50 mg tablet RxNorm: 108574 1-2 Tablet(s) PO TID PRN as needed 05/11/2016 07/08/2016 Inactive ok to give 1 month zjvifg=777 tablets cyclobenzaprine 10 mg tablet RxNorm: 033880 TAKE 1 TABLET BY MOUTH THREE TIMES DAILY NEEDED FOR MUSCLE SPASMS 05/11/2016 05/10/2017 Inactive hydrocodone 10 mg-acetaminophen 325 mg tablet RxNorm: 196784 1-2 Tablet(s) PO Q6 as needed for pain 05/06/2016 06/25/2016 Inactive (Response to an electronic controlled substance refill request - RxReferenceNumber: [id number]|1|0|1) cyanocobalamin (vit B-12) 1,000 mcg/mL injection solution RxNorm: 461549 1 Milliliter(s) Inj 04/20/2016 04/20/2016 Inactive hydrocodone 10 mg-acetaminophen 325 mg tablet RxNorm: 592896 1-2 Tablet(s) PO Q6 as needed for pain 04/03/2016 05/05/2016 Inactive (Response to an electronic controlled substance refill request - RxReferenceNumber: [id number]|1|0|1) pantoprazole 40 mg tablet,delayed release RxNorm: 024472 TAKE 1 TABLET BY MOUTH EVERY DAY 04/02/2016 08/09/2016 Inactive Claritin-D 12 Hour 5 mg-120 mg tablet,extended release RxNorm: 6316368 Tablet(s) TAKE 1 TABLET BY MOUTH TWICE DAILY NEEDED 04/02/2016 11/05/2016 Inactive hydrocodone 10 mg-acetaminophen 325 mg tablet RxNorm: 076814 1-2 Tablet(s) PO Q6 as needed for pain 03/12/2016 04/02/2016 Inactive (Response to an electronic controlled substance refill request - RxReferenceNumber: [id number]|1|0|1) Effexor XR 150 mg capsule,extended release RxNorm: 265684 1 CAPSULE(S) PO BID 03/05/2016 01/07/2017 Inactive TAKE 1 CAPSULE BY MOUTH TWICE DAILY Ventolin HFA 90 mcg/actuation aerosol inhaler RxNorm: 614883 1 OR 2 PUFF(S) INH Q6 PRN NEEDED 02/19/2016 08/06/2016 Inactive cyanocobalamin (vit B-12) 1,000 mcg/mL injection solution RxNorm: 728831 Milliliter(s) Inj 02/13/2016 02/13/2016 Inactive hydrocodone 10 mg-acetaminophen 325 mg tablet RxNorm: 650359 1-2 Tablet(s) PO Q6 as needed for pain 02/05/2016 03/11/2016 Inactive (Response to an electronic controlled substance refill request - RxReferenceNumber: [id number]|1|0|1) Valium 10 mg tablet RxNorm: 233395 1 Tablet(s) QID as needed 02/05/2016 05/04/2016 Inactive (Response to an electronic controlled substance refill request - RxReferenceNumber: [id number]|1|0|1) tramadol 50 mg tablet RxNorm: 341086 1-2 Tablet(s) PO TID PRN as needed 02/05/2016 11/05/2016 Inactive ok to give 1 month dqxxkp=448 tablets hydrocodone 10 mg-acetaminophen 325 mg tablet RxNorm: 456872 1-2 Tablet(s) PO Q6 as needed for pain 01/08/2016 02/04/2016 Inactive (Response to an electronic controlled substance refill request - RxReferenceNumber: [id number]|1|0|1) metoprolol tartrate 25 mg tablet RxNorm: 287306 Tablet(s) 1/2 TABLET(S) PO BID TAKE 1/2 TABLET BY MOUTH TWICE DAILY 01/08/2016 08/09/2016 Inactive Symbicort 160 mcg-4.5 mcg/actuation HFA aerosol inhaler RxNorm: 3674182 2 INH BID 01/03/2016 11/25/2016 Inactive Symbicort 160 mcg-4.5 mcg/actuation HFA aerosol inhaler RxNorm: 5914864 1 INH daily 01/03/2016 01/02/2016 Inactive Lipitor 20 mg tablet RxNorm: 128379 1 TABLET(S) PO DAILY 201506/26/2016 Inactive TAKE ONE TABLET BY MOUTH EVERY NIGHT AT BEDTIME trazodone 100 mg tablet RxNorm: 430717 TAKE 2 TABLETS BY MOUTH EVERY NIGHT AT BEDTIME 12/30/2015 09/23/2016 Inactive Savella 100 mg tablet RxNorm: 645221 TABLET(S) PO TAKE 1 TABLET BY MOUTH DAILY 12/30/2015 08/09/2016 Inactive hydrocodone 10 mg-acetaminophen 325 mg tablet RxNorm: 555312 1-2 Tablet(s) PO Q6 as needed for pain 12/12/2015 01/07/2016 Inactive (Response to an electronic controlled substance refill request - RxReferenceNumber: [id number]|1|0|1) cyanocobalamin (vit B-12) 1,000 mcg/mL injection solution RxNorm: 987833 1 Milliliter(s) Inj 12/02/2015 12/02/2015 Inactive hydrocodone 10 mg-acetaminophen 325 mg tablet RxNorm: 736131 1-2 Tablet(s) PO Q6 as needed for pain 12/02/2015 12/11/2015 Inactive (Response to an electronic controlled substance refill request - RxReferenceNumber: [id number]|1|0|1) Claritin-D 12 Hour 5 mg-120 mg tablet,extended release RxNorm: 2888830 Tablet(s) TAKE 1 TABLET BY MOUTH TWICE DAILY 11/11/2015 11/10/2015 Inactive Claritin-D 12 Hour 5 mg-120 mg tablet,extended release RxNorm: 8731608 Tablet(s) TAKE 1 TABLET BY MOUTH TWICE DAILY NEEDED 11/11/2015 01/06/2016 Inactive tramadol 50 mg tablet RxNorm: 670740 1-2 Tablet(s) PO TID PRN as needed 11/05/2015 11/05/2016 Inactive ok to give 1 month rnonto=065 tablets Valium 10 mg tablet RxNorm: 527394 1 Tablet(s) QID as needed 11/05/2015 02/02/2016 Inactive (Response to an electronic controlled substance refill request - RxReferenceNumber: [id number]|1|0|1) cyanocobalamin (vit B-12) 1,000 mcg/mL injection solution RxNorm: 381307 1 Milliliter(s) Inj 10/29/2015 10/29/2015 Inactive hydrocodone 10 mg-acetaminophen 325 mg tablet RxNorm: 174619 1-2 Tablet(s) PO Q6 as needed for pain 10/28/2015 12/01/2015 Inactive (Response to an electronic controlled substance refill request - RxReferenceNumber: [id number]|1|0|1) pantoprazole 40 mg tablet,delayed release RxNorm: 951866 TAKE 1 TABLET BY MOUTH EVERY DAY 10/08/2015 04/01/2016 Inactive Seroquel 100 mg tablet RxNorm: 106996 1 TABLET(S) PO BID 201506/29/2016 Inactive TAKE 1 TABLET BY MOUTH TWICE DAILY trazodone 100 mg tablet RxNorm: 843310 TAKE 2 TABLETS BY MOUTH EVERY NIGHT AT BEDTIME 10/08/2015 10/01/2016 Inactive Lipitor 20 mg tablet RxNorm: 562601 1 TABLET(S) PO DAILY 201504/04/2016 Inactive TAKE ONE TABLET BY MOUTH EVERY NIGHT AT BEDTIME hydrocodone 10 mg-acetaminophen 325 mg tablet RxNorm: 925016 1-2 Tablet(s) PO Q6 as needed for pain 09/19/2015 10/18/2015 Inactive (Response to an electronic controlled substance refill request - RxReferenceNumber: [id number]|1|0|1) Valium 10 mg tablet RxNorm: 249558 1 Tablet(s) QID as needed 09/05/2015 11/03/2015 Inactive (Response to an electronic controlled substance refill request - RxReferenceNumber: [id number]|1|0|1) Savella 100 mg tablet RxNorm: 362222 Tablet(s) PO TAKE 1 TABLET BY MOUTH DAILY 07/19/2015 11/05/2016 Inactive Zithromax Z-Lauro 250 mg tablet RxNorm: 188647 1 Tablet(s) PO UD 07/12/2015 11/04/2015 Inactive z lauro hydrocodone 10 mg-acetaminophen 325 mg tablet RxNorm: 365014 1-2 Tablet(s) PO Q6 as needed for pain 07/10/2015 08/08/2015 Inactive (Response to an electronic controlled substance refill request - RxReferenceNumber: [id number]|1|0|1) tramadol 50 mg tablet RxNorm: 720861 1-2 Tablet(s) PO TID PRN as needed 07/04/2015 11/05/2016 Inactive ok to give 1 month bukioy=432 tablets hydrocodone 10 mg-acetaminophen 325 mg tablet RxNorm: 486162 1-2 Tablet(s) PO Q6 as needed for pain 06/10/2015 07/09/2015 Inactive (Response to an electronic controlled substance refill request - RxReferenceNumber: [id number]|1|0|1) cyanocobalamin (vit B-12) 1,000 mcg/mL injection solution RxNorm: 983546 Milliliter(s) Inj 06/10/2015 06/10/2015 Inactive pantoprazole 40 mg tablet,delayed release RxNorm: 609649 TABLET(S) PO TAKE 1 TABLET BY MOUTH EVERY DAY 06/10/201511/05 Inactive pantoprazole 40 mg tablet,delayed release RxNorm: 080228 Tablet(s) PO TAKE 1 TABLET BY MOUTH EVERY DAY 06/06/201511/05 Inactive tramadol 50 mg tablet RxNorm: 624976 1-2 Tablet(s) PO TID PRN as needed 05/29/2015 06/27/2015 Inactive ok to give 1 month czekye=990 tablets tramadol 50 mg tablet RxNorm: 900508 1-2 Tablet(s) PO Q6 as needed 05/29/2015 06/09/2015 Inactive Valium 10 mg tablet RxNorm: 359130 1 Tablet(s) QID as needed 05/08/2015 07/06/2015 Inactive (Response to an electronic controlled substance refill request - RxReferenceNumber: [id number]|1|0|1) cyclobenzaprine 10 mg tablet RxNorm: 352255 TAKE 1 TABLET BY MOUTH THREE TIMES DAILY NEEDED FOR MUSCLE SPASMS 05/08/2015 05/10/2016 Inactive Effexor XR 150 mg capsule,extended release RxNorm: 057499 1 Capsule(s) PO BID 1 CAPSULE(S) PO BID 05/08/2015 11/05/2016 Inactive TAKE 1 CAPSULE BY MOUTH TWICE DAILY hydrocodone 10 mg-acetaminophen 325 mg tablet RxNorm: 982217 1-2 Tablet(s) PO Q6 as needed for pain 05/08/2015 06/06/2015 Inactive (Response to an electronic controlled substance refill request - RxReferenceNumber: [id number]|1|0|1) metoprolol tartrate 25 mg tablet RxNorm: 566385 1/2 TABLET(S) PO BID TAKE 1/2 TABLET BY MOUTH TWICE DAILY 05/06/201507/2015 Inactive Claritin-D 12 Hour 5 mg-120 mg tablet,extended release RxNorm: 4786911 TAKE 1 TABLET BY MOUTH TWICE DAILY 04/16/201506/2016 Inactive hydrocodone 10 mg-acetaminophen 325 mg tablet RxNorm: 610305 1-2 Tablet(s) PO Q6 as needed for pain 04/15/2015 05/07/2015 Inactive (Response to an electronic controlled substance refill request - RxReferenceNumber: [id number]|1|0|1) pantoprazole 40 mg tablet,delayed release RxNorm: 694483 TABLET(S) PO TAKE 1 TABLET BY MOUTH EVERY DAY 04/08/201506/06 Inactive hydrocodone 10 mg-acetaminophen 325 mg tablet RxNorm: 754430 1 Tablet(s) PO Q4 PRN TAKE 1-2 TABLETS BY MOUTH EVERY 6 HOURS NEEDED FOR PAIN 03/14/2015 04/12/2015 Inactive (Response to an electronic controlled substance refill request - RxReferenceNumber: [id number]|1|0|1) diazepam 10 mg tablet RxNorm: 615496 1 Tablet(s) TID TAKE 1 TABLET BY MOUTH THREE TIMES DAILY NEEDED 02/08/20152016 Inactive (Response to an electronic controlled substance refill request - RxReferenceNumber: [id number]|1|0|1) Effexor XR 150 mg capsule,extended release RxNorm: 932253 1 CAPSULE(S) PO BID 02/07/2015 05/07/2015 Inactive TAKE 1 CAPSULE BY MOUTH TWICE DAILY cyclobenzaprine 10 mg tablet RxNorm: 774562 TAKE 1 TABLET BY MOUTH THREE TIMES DAILY NEEDED FOR MUSCLE SPASMS 02/07/2015 05/07/2015 Inactive pantoprazole 40 mg tablet,delayed release RxNorm: 078543 TABLET(S) PO TAKE 1 TABLET BY MOUTH EVERY DAY 02/07/201504/07 Inactive hydrocodone 10 mg-acetaminophen 325 mg tablet RxNorm: 472352 1 Tablet(s) PO Q4 PRN TAKE 1-2 TABLETS BY MOUTH EVERY 6 HOURS NEEDED FOR PAIN 01/25/2015 02/23/2015 Inactive (Response to an electronic controlled substance refill request - RxReferenceNumber: [id number]|1|0|1) Bactroban Nasal 2 % ointment RxNorm: 531112 1 Application NASAL BID 01/10/2015 01/10/2015 Inactive mupirocin 2 % topical ointment RxNorm: 679919 1 Application TOP TID 1 APPLICATION TOP PRN 01/10/2015 01/19/2015 Inactive disregard order for nasal ointment , use on left knee trazodone 100 mg tablet RxNorm: 668933 TAKE 2 TABLETS BY MOUTH EVERY NIGHT AT BEDTIME 01/08/2015 10/07/2015 Inactive Seroquel 100 mg tablet RxNorm: 768417 1 TABLET(S) PO BID 201410/04/2015 Inactive TAKE 1 TABLET BY MOUTH TWICE DAILY cyclobenzaprine 10 mg tablet RxNorm: 798115 TAKE 1 TABLET BY MOUTH THREE TIMES DAILY NEEDED FOR MUSCLE SPASMS 01/08/2015 02/06/2015 Inactive hydrocodone 10 mg-acetaminophen 325 mg tablet RxNorm: 262388 1 Tablet(s) PO Q4 PRN TAKE 1-2 TABLETS BY MOUTH EVERY 6 HOURS NEEDED FOR PAIN 12/21/2014 01/19/2015 Inactive (Response to an electronic controlled substance refill request - RxReferenceNumber: [id number]|1|0|1) pantoprazole 40 mg tablet,delayed release RxNorm: 512404 TABLET(S) PO TAKE 1 TABLET BY MOUTH EVERY DAY 12/13/201402/06 Inactive Lipitor 20 mg tablet RxNorm: 066789 1 Tablet(s) PO daily 201409/08/2015 Inactive TAKE ONE TABLET BY MOUTH EVERY NIGHT AT BEDTIME Valium 10 mg tablet RxNorm: 405929 1 Tablet(s) QID as needed 12/12/2014 02/09/2015 Inactive (Response to an electronic controlled substance refill request - RxReferenceNumber: [id number]|1|0|1) hydrocodone 10 mg-acetaminophen 325 mg tablet RxNorm: 280080 Tablet(s) TAKE 1-2 TABLETS BY MOUTH EVERY 6 HOURS NEEDED FOR PAIN 12/12/2014 12/20/2014 Inactive ( Response to an electronic controlled substance refill request - RxReferenceNumber: [id number]|1|0|1) Lipitor 20 mg tablet RxNorm: 910436 1 Tablet(s) PO daily 201412/12/2014 Inactive TAKE ONE TABLET BY MOUTH EVERY NIGHT AT BEDTIME pantoprazole 40 mg tablet,delayed release RxNorm: 020817 TABLET(S) PO TAKE 1 TABLET BY MOUTH EVERY DAY 12/06/201411/05 Inactive Savella 100 mg tablet RxNorm: 773416 Tablet(s) PO TAKE 1 TABLET BY MOUTH DAILY 12/06/2014 07/18/2015 Inactive Lipitor 20 mg tablet RxNorm: 175145 1 Tablet(s) PO daily 201412/10/2014 Inactive TAKE ONE TABLET BY MOUTH EVERY NIGHT AT BEDTIME Valium 10 mg tablet RxNorm: 566812 TAKE 1 TABLET BY MOUTH FOUR TIMES DAILY NEEDED FOR ANXIETY 12/06/2014 12/11/2014 Inactive Valium 10 mg tablet RxNorm: 320118 1 Tablet(s) QID as needed 11/13/2014 12/11/2014 Inactive (Response to an electronic controlled substance refill request - RxReferenceNumber: [id number]|1|0|1) hydrocodone 10 mg-acetaminophen 325 mg tablet RxNorm: 673310 Tablet(s) TAKE 1-2 TABLETS BY MOUTH EVERY 6 HOURS NEEDED FOR PAIN 11/13/2014 12/11/2014 Inactive ( Response to an electronic controlled substance refill request - RxReferenceNumber: [id number]|1|0|1) hydrocodone 10 mg-acetaminophen 325 mg tablet RxNorm: 252450 Tablet(s) TAKE 1-2 TABLETS BY MOUTH EVERY 6 HOURS NEEDED FOR PAIN 11/08/2014 11/12/2014 Inactive ( Response to an electronic controlled substance refill request - RxReferenceNumber: [id number]|1|0|1) Valium 10 mg tablet RxNorm: 570801 1 Tablet(s) QID as needed 11/08/2014 11/12/2014 Inactive (Response to an electronic controlled substance refill request - RxReferenceNumber: [id number]|1|0|1) metoprolol tartrate 25 mg tablet RxNorm: 857625 1/2 TABLET(S) PO BID TAKE 1/2 TABLET BY MOUTH TWICE DAILY 11/08/2014 Inactive Valium 10 mg tablet RxNorm: 267159 TAKE 1 TABLET BY MOUTH FOUR TIMES DAILY NEEDED FOR ANXIETY 11/06/2014 12/09/2014 Inactive Vitamin D2 50,000 unit capsule RxNorm: 039873 1 Capsule(s) PO QW 10/24/2014 10/23/2014 Inactive Vitamin D2 50,000 unit capsule RxNorm: 854176 1 Capsule(s) PO QW x 8 weeks 10/24/2014 12/22/2014 Inactive Entyvio 300 mg intravenous solution RxNorm: 2471411 IV 2014 No Stop Date Active hydrocodone 10 mg-acetaminophen 325 mg tablet RxNorm: 398624 Tablet(s) TAKE 1-2 TABLETS BY MOUTH EVERY 6 HOURS NEEDED FOR PAIN 10/05/2014 11/03/2014 Inactive ( Response to an electronic controlled substance refill request - RxReferenceNumber: [id number]|1|0|1) Valium 10 mg tablet RxNorm: 142790 TAKE 1 TABLET BY MOUTH EVERY 8 HOURS NEEDED 10/05/2014 11/03/2014 Inactive (Response to an electronic controlled substance refill request - RxReferenceNumber: [id number]|1|0|1) Valium 10 mg tablet RxNorm: 628115 1 Tablet(s) PO QID as needed TAKE 1 TABLET BY MOUTH 10/05/2014 11/05/2016 Inactive (Response to an electronic controlled substance refill request - RxReferenceNumber: [id number]|1|0|1) Valium 10 mg tablet RxNorm: 014448 TAKE 1 TABLET BY MOUTH THREE TIMES DAILY NEEDED 09/04/2014 10/03/2014 Inactive (Response to an electronic controlled substance refill request - RxReferenceNumber: [id number]|1|0|1) Valium 10 mg tablet RxNorm: 083512 1 Tablet(s) PO Q8 PRN as needed 09/04/2014 11/09/2014 Inactive hydrocodone 10 mg-acetaminophen 325 mg tablet RxNorm: 310624 Tablet(s) TAKE 1-2 TABLETS BY MOUTH EVERY 6 HOURS NEEDED FOR PAIN 08/27/2014 09/25/2014 Inactive ( Response to an electronic controlled substance refill request - RxReferenceNumber: [id number]|1|0|1) Claritin-D 12 Hour 5 mg-120 mg tablet,extended release RxNorm: 1187890 1 Tablet(s ) PO BID 08/27/2014 04/16/2015 Inactive Ventolin HFA 90 mcg/actuation aerosol inhaler RxNorm: 000266 1 or 2 Puff(s) INH Q6 PRN as needed 08/09/2014 03/06/2015 Inactive pantoprazole 40 mg tablet,delayed release RxNorm: 550348 Tablet(s) PO TAKE 1 TABLET BY MOUTH EVERY DAY 08/09/201408/08 Inactive pantoprazole 40 mg tablet,delayed release RxNorm: 249665 TAKE 1 TABLET BY MOUTH EVERY DAY 08/09/2014 11/05/2016 Inactive diazepam 10 mg tablet RxNorm: 856250 TAKE 1 TABLET BY MOUTH THREE TIMES DAILY NEEDED 07/02/2014 07/31/2014 Inactive (Response to an electronic controlled substance refill request - RxReferenceNumber: [id number]|1|0|1) Valium 10 mg tablet RxNorm: 458040 1 Tablet(s) PO Q8 PRN as needed 07/02/2014 07/01/2014 Inactive hydrocodone 10 mg-acetaminophen 325 mg tablet RxNorm: 696174 Tablet(s) TAKE 1-2 TABLETS BY MOUTH EVERY 6 HOURS NEEDED FOR PAIN 06/14/2014 07/13/2014 Inactive ( Response to an electronic controlled substance refill request - RxReferenceNumber: [id number]|1|0|1) diazepam 10 mg tablet RxNorm: 869573 TAKE 1 TABLET BY MOUTH THREE TIMES DAILY NEEDED 05/29/2014 06/27/2014 Inactive (Response to an electronic controlled substance refill request - RxReferenceNumber: [id number]|1|0|1) diazepam 10 mg tablet RxNorm: 149350 Tablet(s) PO TAKE 1 TABLET BY MOUTH THREE TIMES DAILY NEEDED 05/29/20142013 Inactive (Appended: Controlled substance eRx refill - RxReferenceNumber: [id number]|1|0|1) hydrocodone 10 mg-acetaminophen 325 mg tablet RxNorm: 398216 Tablet(s) TAKE 1-2 TABLETS BY MOUTH EVERY 6 HOURS NEEDED FOR PAIN 05/17/2014 06/13/2014 Inactive ( Response to an electronic controlled substance refill request - RxReferenceNumber: [id number]|1|0|1) diazepam 10 mg tablet RxNorm: 195191 Tablet(s) PO TAKE 1 TABLET BY MOUTH THREE TIMES DAILY NEEDED 04/27/20142013 Inactive (Appended: Controlled substance eRx refill - RxReferenceNumber: [id number]|1|0|1) Anucort-HC 25 mg suppository RxNorm: 3459758 1 SUPPOSITORY RTL QDAY PRN NEEDED 04/03/2014 06/01/2014 Inactive metoprolol tartrate 25 mg tablet RxNorm: 706872 1/2 TABLET(S) PO BID TAKE 1/2 TABLET BY MOUTH TWICE DAILY 04/03/201408/2014 Inactive Anucort-HC 25 mg suppository RxNorm: 9577489 1 SUPPOSITORY RTL QDAY PRN NEEDED 04/03/2014 06/01/2014 Inactive Seroquel 100 mg tablet RxNorm: 339653 1 TABLET(S) PO BID 201312/28/2014 Inactive TAKE 1 TABLET BY MOUTH TWICE DAILY Anucort-HC 25 mg suppository RxNorm: 3586252 1 SUPPOSITORY RTL QDAY PRN NEEDED 04/03/2014 06/01/2014 Inactive hydrocodone 10 mg-acetaminophen 325 mg tablet RxNorm: 643043 Tablet(s) TAKE 1-2 TABLETS BY MOUTH EVERY 6 HOURS NEEDED FOR PAIN 03/22/2014 04/20/2014 Inactive ( Response to an electronic controlled substance refill request - RxReferenceNumber: [id number]|1|0|1) Claritin-D 12 Hour 5 mg-120 mg tablet,extended release RxNorm: 9680521 1 Tablet(s ) PO BID 03/22/2014 2014 Inactive diazepam 10 mg tablet RxNorm: 265892 TAKE 1 TABLET BY MOUTH THREE TIMES DAILY NEEDED 03/19/2014 04/16/2014 Inactive (Response to an electronic controlled substance refill request - RxReferenceNumber: [id number]|1|0|1) Lipitor 20 mg tablet RxNorm: 904413 1 TABLET(S) PO DAILY 201312/05/2014 Inactive TAKE ONE TABLET BY MOUTH EVERY NIGHT AT BEDTIME Effexor XR 150 mg capsule,extended release RxNorm: 956723 1 CAPSULE(S) PO BID 03/01/2014 01/24/2015 Inactive TAKE 1 CAPSULE BY MOUTH TWICE DAILY Claritin-D 12 Hour 5 mg-120 mg tablet,extended release RxNorm: 9142068 1 Tablet(s ) PO BID 02/19/2014 03/21/2014 Inactive cyanocobalamin (vit B-12) 1,000 mcg/mL injection solution RxNorm: 547718 Milliliter(s) Inj 02/15/2014 02/15/2014 Inactive hydrocodone 10 mg-acetaminophen 325 mg tablet RxNorm: 483648 1 Tablet(s) PO Q6 PRN TAKE ONE TO TWO TABLETS BY MOUTH EVERY 6 HOURS NEEDED FOR PAIN 01/30/2014 01/30/2014 Inactive (Response to an electronic controlled substance refill request - RxReferenceNumber: [id number]|1|0|1) hydrocodone 10 mg-acetaminophen 325 mg tablet RxNorm: 064088 TAKE 1-2 TABLETS BY MOUTH EVERY 6 HOURS NEEDED FOR PAIN 01/30/2014 02/19/2014 Inactive (Response to an electronic controlled substance refill request - RxReferenceNumber: [id number]| [id number]|1|0|1) cyanocobalamin (vit B-12) 1,000 mcg/mL injection kit RxNorm: 781139 1 Milliliter(s ) Inj 01/15/2014 01/15/2014 Inactive Kenalog 40 mg/mL suspension for injection RxNorm: 6876692 1 Milliliter(s) Inj 01/15/2014 01/15/2014 Inactive Anucort-HC 25 mg suppository RxNorm: 5870291 1 Suppository RTL QDAY PRN as needed 01/15/2014 02/13/2014 Inactive hydrocodone 10 mg-acetaminophen 325 mg tablet RxNorm: 588827 TAKE ONE TO TWO TABLETS BY MOUTH EVERY 6 HOURS NEEDED FOR PAIN 12/29/2013 01/18/2014 Inactive ( Response to an electronic controlled substance refill request - RxReferenceNumber: [id number]|1|0|1) trazodone 100 mg tablet RxNorm: 399649 TAKE 2 TABLETS BY MOUTH EVERY NIGHT AT BEDTIME 12/20/2013 12/14/2014 Inactive mupirocin 2 % topical ointment RxNorm: 117974 1 APPLICATION TOP PRN 12/14/2013 01/09/2015 Inactive cyanocobalamin (vit B-12) 1,000 mcg/mL injection solution RxNorm: 559097 1 Milliliter(s) Inj 12/04/2013 12/04/2013 Inactive Savella 100 mg tablet RxNorm: 951926 1 Tablet(s) PO daily TAKE 1 TABLET BY MOUTH DAILY 11/28/2013 11/05/2016 Inactive Savella 100 mg tablet RxNorm: 054482 Tablet(s) PO TAKE 1 TABLET BY MOUTH DAILY 10/27/2013 11/27/2013 Inactive mupirocin 2 % topical ointment RxNorm: 332105 1 Application TOP PRN 10/17/2013 No Stop Date Active trazodone 100 mg tablet RxNorm: 673937 Tablet(s) PO TAKE 2 TABLETS BY MOUTH EVERY NIGHT AT BEDTIME 09/26/2013 11/05/2016 Inactive cyclobenzaprine 10 mg tablet RxNorm: 872315 Tablet(s) PO TAKE ONE TABLET BY MOUTH THREE TIMES DAILY 09/26/2013 01/07/2015 Inactive diazepam 10 mg tablet RxNorm: 350711 Tablet(s) PO TAKE 1 TABLET BY MOUTH THREE TIMES DAILY NEEDED 08/15/20132013 Inactive (Appended: Controlled substance eRx refill - RxReferenceNumber: [id number]|1|0|1) diazepam 10 mg tablet RxNorm: 116224 1 Tablet(s) PO TID PRN TAKE 1 TABLET BY MOUTH THREE TIMES DAILY NEEDED 08/15/2013 Inactive (Appended: Controlled substance eRx refill - RxReferenceNumber: [id number]|1|0|1) Vitamin B-12 1,000 mcg/mL injection solution RxNorm: 541782 Milliliter(s) Inj 07/24/2013 07/24/2013 Inactive pantoprazole 40 mg tablet,delayed release RxNorm: 688919 Tablet(s) PO TAKE 1 TABLET BY MOUTH EVERY DAY 07/20/201308/08 Inactive hydrocodone 10 mg-acetaminophen 325 mg tablet RxNorm: 095919 1 or 2 Tablet(s) PO Q6 PRN limit 6 per day 06/26/20132013 Inactive (Appended: Controlled substance eRx refill - RxReferenceNumber: [id number]|1|0|1) trazodone 100 mg tablet RxNorm: 252633 Tablet(s) PO TAKE 2 TABLETS BY MOUTH EVERY NIGHT AT BEDTIME 06/26/2013 11/05/2016 Inactive pantoprazole 40 mg tablet,delayed release RxNorm: 978000 Tablet(s) PO TAKE 1 TABLET BY MOUTH EVERY DAY 06/20/201306/05 Inactive prednisone 10 mg tablets in a dose pack RxNorm: 632931 Tablet(s) PO 6-5-4-3-2-1 06/13/2013 06/12/2013 Inactive prednisone 10 mg tablets in a dose pack RxNorm: 497507 Tablet(s) PO UD 6-5-4-3-2- 1 06/13/2013 06/18/2013 Inactive Silvadene 1 % topical cream RxNorm: 538441 1 TOP daily apply thin layer to left knee daily 06/12/2013 06/18/2013 Inactive metoprolol tartrate 25 mg tablet RxNorm: 410564 1/2 Tablet(s) PO BID TAKE 1/2 TABLET BY MOUTH TWICE DAILY 05/19/2013 Inactive Lipitor 20 mg tablet RxNorm: 569415 1 Tablet(s) PO daily 201203/11/2014 Inactive TAKE ONE TABLET BY MOUTH EVERY NIGHT AT BEDTIME Vitamin B-12 1,000 mcg/mL injection solution RxNorm: 790859 1 Milliliter(s) Inj 05/10/2013 05/10/2013 Inactive hydrocodone 10 mg-acetaminophen 325 mg tablet RxNorm: 370801 1 or 2 Tablet(s) PO Q6 PRN limit 6 per day 03/16/2013 No Stop Date Active (Appended: Controlled substance eRx refill - RxReferenceNumber: [id number]|1|0|1) Seroquel 100 mg tablet RxNorm: 826189 1 Tablet(s) PO BID 201203/10/2014 Inactive TAKE 1 TABLET BY MOUTH TWICE DAILY Effexor XR 150 mg capsule,extended release RxNorm: 057441 1 Capsule(s) PO BID 03/16/2013 02/28/2014 Inactive TAKE 1 CAPSULE BY MOUTH TWICE DAILY fluconazole 150 mg tablet RxNorm: 133092 1 Tablet(s) PO daily 03/06/2013 03/12/2013 Inactive Kenalog 40 mg/mL Susp for Injection RxNorm: 7820800 Milliliter(s) Inj 03/06/2013 03/06/2013 Inactive Ventolin HFA 90 mcg/actuation Aerosol Inhaler RxNorm: 6185715 1 or 2 Puff(s) INH Q6 PRN 02/20/2013 03/16/2014 Inactive cyanocobalamin (vitamin B-12) 1,000 mcg/mL Injection RxNorm: 284015 Milliliter(s) Inj 02/20/2013 02/20/2013 Inactive Valium 10 mg tablet RxNorm: 830635 1 Tablet(s) PO Q8 PRN 01/3102/24/2014 Inactive Kenalog 40 mg/mL Susp for Injection RxNorm: 8414554 Milliliter(s) Inj 12/26/2012 12/26/2012 Inactive cyanocobalamin (vitamin B-12) 1,000 mcg/mL Injection RxNorm: 499444 Milliliter(s) Inj 12/21/2012 12/21/2012 Inactive hydrocodone 10 mg-acetaminophen 325 mg tablet RxNorm: 0254744 1 or 2 Tablet(s) PO Q6 PRN limit 6 per day 11/25/20122012 Inactive (Appended: Controlled substance eRx refill - RxReferenceNumber: [id number]|1|0|1) diazepam 10 mg tablet RxNorm: 785440 1 Tablet(s) PO TID PRN 08/15/2013 Inactive TAKE 1 TABLET BY MOUTH THREE TIMES DAILY NEEDED (Appended: Controlled substance eRx refill - RxReferenceNumber: [id number]|1|0|1) diazepam 10 mg tablet RxNorm: 059374 Tablet(s) PO TAKE 1 TABLET BY MOUTH THREE TIMES DAILY NEEDED 11/21/20122013 Inactive (Appended: Controlled substance eRx refill - RxReferenceNumber: [id number]|1|0|1) Vitamin B-12 1,000 mcg/mL Injection RxNorm: 230378 1 Milliliter(s) Inj 11/16/2012 11/16/2012 Inactive hydrocodone 10 mg-acetaminophen 325 mg tablet RxNorm: 4526847 1 or 2 Tablet(s) PO Q6 PRN limit 6 per day 10/24/20122012 Inactive (Appended: Controlled substance eRx refill - RxReferenceNumber: [id number]|1|0|1) hydrocodone 10 mg-acetaminophen 325 mg tablet RxNorm: 1182522 Tablet(s) PO limit 5x days 10/24/2012 10/23/2012 Inactive (Appended: Controlled substance eRx refill - RxReferenceNumber: [id number]|1|0|1) Savella 100 mg tablet RxNorm: 991676 Tablet(s) PO TAKE 1 TABLET BY MOUTH DAILY 10/14/2012 12/05/2014 Inactive Tubersol 5 tub. unit/0.1 mL Intradermal RxNorm: 323697 Milliliter(s) IDrm 09/26/2012 09/26/2012 Inactive hydrocodone 10 mg-acetaminophen 325 mg tablet RxNorm: 7671184 1 Tablet(s) PO Q4 PRN q 4 hr prn limit 5 per day 09/19/2012 No Stop Date Active (Appended: Controlled substance eRx refill - RxReferenceNumber: [id number]|1|0|1) hydrocodone 10 mg-acetaminophen 325 mg tablet RxNorm: 1883629 Tablet(s) PO TAKE 1 TABLET BY MOUTH FOUR TIMES DAILY 09/16/2012 10/23/2012 Inactive (Appended: Controlled substance eRx refill - RxReferenceNumber: [id number]|1|0|1) cyclobenzaprine 10 mg tablet RxNorm: 422258 Tablet(s) PO TAKE ONE TABLET BY MOUTH THREE TIMES DAILY 09/16/2012 09/25/2013 Inactive hydrocodone 10 mg-acetaminophen 325 mg tablet RxNorm: 3972387 1 Tablet(s) PO Q4 PRN q 4 hr prn limit 5 per day 09/14/2012 09/19/2012 Inactive (Appended: Controlled substance eRx refill - RxReferenceNumber: [id number]|1|0|1) cyanocobalamin (vitamin B-12) 1,000 mcg/mL Injection RxNorm: 815620 1 Milliliter(s ) Inj 09/12/2012 09/12/2012 Inactive cyclobenzaprine 10 mg tablet RxNorm: 542237 Tablet(s) PO TAKE ONE TABLET BY MOUTH THREE TIMES DAILY 09/02/2012 09/15/2012 Inactive hydrocodone 10 mg-acetaminophen 325 mg tablet RxNorm: 2847968 1 Tablet(s) PO QID TAKE 1 TABLET BY MOUTH FOUR TIMES DAILY 08/23/2012 09/13/2012 Inactive (Appended: Controlled substance eRx refill - RxReferenceNumber: [id number]|1|0|1) Kenalog 40 mg/mL Susp for Injection RxNorm: 8074359 1 Milliliter(s) Inj 08/11/2012 08/11/2012 Inactive Vitamin B-12 1,000 mcg/mL Injection RxNorm: 082174 1 Milliliter(s) Inj 08/11/2012 08/11/2012 Inactive Zithromax 250 mg tablet RxNorm: 590768 Tablet(s) PO 07/21/2012 09/14/2012 Inactive please give z lauro cefdinir 300 mg capsule RxNorm: 504483 1 Capsule(s) PO BID 07/20/2012 Inactive cefdinir 300 mg capsule RxNorm: 576564 1 Capsule(s) PO BID 07/27/2012 Inactive diazepam 10 mg tablet RxNorm: 926060 1 Tablet(s) PO TID PRN 12/201211/22/2012 Inactive TAKE 1 TABLET BY MOUTH THREE TIMES DAILY NEEDED (Appended: Controlled substance eRx refill - RxReferenceNumber: [id number]|1|0|1) Vitamin B-12 1,000 mcg/mL Injection RxNorm: 384198 1 Milliliter(s) Inj 07/13/2012 07/13/2012 Inactive pantoprazole 40 mg tablet,delayed release RxNorm: 006002 1 Tablet(s) PO daily 06/14/2012 06/13/2012 Inactive pantoprazole 40 mg tablet,delayed release RxNorm: 461144 1 Tablet(s) PO daily 06/14/2012 06/19/2013 Inactive trazodone 100 mg tablet RxNorm: 748192 Tablet(s) PO TAKE 2 TABLETS BY MOUTH EVERY NIGHT AT BEDTIME 06/06/2012 11/05/2016 Inactive hydrocodone 10 mg-acetaminophen 325 mg tablet RxNorm: 3330387 Tablet(s) PO TAKE 1 TABLET BY MOUTH FOUR TIMES DAILY 05/24/2012 08/23/2012 Inactive (Appended: Controlled substance eRx refill - RxReferenceNumber: [id number]|1|0|1) Symbicort 160 mcg-4.5 mcg/actuation HFA Aerosol Inhaler RxNorm: 4340665 1 INH daily 05/24/2012 05/23/2012 Inactive this is an increase in dosing Symbicort 160 mcg-4.5 mcg/actuation HFA Aerosol Inhaler RxNorm: 6985428 1 INH daily 05/24/2012 06/17/2013 Inactive this is an increase in dosing Ventolin HFA 90 mcg/actuation Aerosol Inhaler RxNorm: 148412 1 or 2 Puff(s) INH Q6 PRN 05/24/2012 05/23/2012 Inactive Ventolin HFA 90 mcg/actuation Aerosol Inhaler RxNorm: 161069 1 or 2 Puff(s) INH Q6 PRN 05/24/2012 02/19/2013 Inactive metoprolol tartrate 25 mg tablet RxNorm: 074553 Tablet(s) PO TAKE 1/2 TABLET BY MOUTH TWICE DAILY 05/24/2012 05/18/2013 Inactive hydrocodone-acetaminophen 10 mg-325 mg tablet RxNorm: 3580235 Tablet(s) PO TAKE 1 TABLET BY MOUTH FOUR TIMES DAILY 05/17/2012 05/17/2012 Inactive (Appended: Controlled substance eRx refill - RxReferenceNumber: [id number]|1|0|1) diazepam 10 mg tablet RxNorm: 498484 Tablet(s) PO 05/03/2012 07/13/2012 Inactive TAKE 1 TABLET BY MOUTH THREE TIMES DAILY NEEDED (Appended: Controlled substance eRx refill - RxReferenceNumber: [id number]|1|0|1) metoprolol tartrate 25 mg tablet RxNorm: 870492 Tablet(s) PO 11/05/2016 Inactive TAKE 1/2 TABLET BY MOUTH TWICE DAILY hydrocodone-acetaminophen 10 mg-325 mg tablet RxNorm: 8284232 Tablet(s) PO 04/11/2012 05/17/2012 Inactive TAKE 1 TABLET BY MOUTH FOUR TIMES DAILY (Appended: Controlled substance eRx refill - RxReferenceNumber: [id number]|1|0|1) ProAir HFA 90 mcg/actuation Aerosol Inhaler RxNorm: 542670 2 INH Q4 PRN 04/05/2012 04/29/2013 Inactive Symbicort 80 mcg-4.5 mcg/actuation HFA Aerosol Inhaler RxNorm: 9136773 2 INH BID 04/05/2012 04/04/2012 Inactive Symbicort 80 mcg-4.5 mcg/actuation HFA Aerosol Inhaler RxNorm: 8311298 2 INH BID 04/05/2012 05/23/2012 Inactive ProAir HFA 90 mcg/actuation Aerosol Inhaler RxNorm: 189782 2 INH Q4 PRN 04/05/2012 04/04/2012 Inactive diazepam 10 mg tablet RxNorm: 976351 Tablet(s) PO 03/17/2012 05/03/2012 Inactive TAKE 1 TABLET BY MOUTH THREE TIMES DAILY NEEDED (Appended: Controlled substance eRx refill - RxReferenceNumber: [id number]|1|0|1) Effexor XR 150 mg capsule,extended release RxNorm: 512276 Capsule(s) PO 03/13/2012 03/15/2013 Inactive TAKE 1 CAPSULE BY MOUTH TWICE DAILY fluconazole 150 mg tablet RxNorm: 226990 1 Tablet(s) PO daily 03/11/2012 03/17/2012 Inactive Lipitor 20 mg tablet RxNorm: 319249 Tablet(s) PO 02/25/2012 03/20/2013 Inactive TAKE ONE TABLET BY MOUTH EVERY NIGHT AT BEDTIME Seroquel 100 mg tablet RxNorm: 802482 1 Tablet(s) PO BID 201102/18/2013 Inactive TAKE 1 TABLET BY MOUTH TWICE DAILY hydrocodone-acetaminophen 10 mg-325 mg tablet RxNorm: 0212744 Tablet(s) PO 02/25/2012 04/11/2012 Inactive TAKE 1 TABLET BY MOUTH FOUR TIMES DAILY . (Appended : Controlled substance eRx refill - RxReferenceNumber: [id number]|1|0|1) Seroquel 100 mg tablet RxNorm: 111262 1 Tablet(s) PO BID 201102/24/2012 Inactive TAKE 1 TABLET BY MOUTH TWICE DAILY Nexium 40 mg capsule,delayed release RxNorm: 576290 1 Capsule(s) PO daily 02/16/2012 06/13/2012 Inactive Effexor XR 150 mg capsule,extended release RxNorm: 231232 Capsule(s) PO 01/14/2012 11/05/2016 Inactive TAKE 1 CAPSULE BY MOUTH TWICE DAILY Kenalog 40 mg/mL Susp for Injection RxNorm: 8565834 1 Milliliter(s) Inj 01/13/2012 01/13/2012 Inactive Vitamin B-12 1,000 mcg/mL Injection RxNorm: 516207 Milliliter(s) Inj 12/21/2011 12/21/2011 Inactive hydrocodone-acetaminophen 10 mg-325 mg tablet RxNorm: 6773106 Tablet(s) PO 12/15/2011 02/25/2012 Inactive TAKE 1 TABLET BY MOUTH FOUR TIMES DAILY (Appended: Controlled substance eRx refill - RxReferenceNumber: [id number]|1|0|1) diazepam 10 mg tablet RxNorm: 247091 Tablet(s) PO 12/15/2011 03/17/2012 Inactive TAKE 1 TABLET BY MOUTH THREE TIMES DAILY NEEDED (Appended: Controlled substance eRx refill - RxReferenceNumber: [id number]|1|0|1) diazepam 10 mg Tab RxNorm: 743092 1 Tablet(s) PO daily 201112/15/2011 Inactive TAKE 1 TABLET BY MOUTH THREE TIMES DAILY (Appended: Controlled substance eRx refill - RxReferenceNumber: [id number]|1|0|1) hydrocodone-acetaminophen 10 mg-325 mg Tab RxNorm: 7673848 1 Tablet(s) PO QID 12/14/2011 12/15/2011 Inactive TAKE 1 TABLET BY MOUTH FOUR TIMES DAILY (Appended: Controlled substance eRx refill - RxReferenceNumber: [id number]|1|0|1) Seroquel 100 mg tablet RxNorm: 702025 Tablet(s) PO 11/27/2011 03/15/2013 Inactive TAKE 1 TABLET BY MOUTH TWICE DAILY hydrocodone-acetaminophen 10 mg-325 mg Tab RxNorm: 3946003 1 Tablet(s) PO QID 11/27/2011 12/13/2011 Inactive TAKE 1 TABLET BY MOUTH FOUR TIMES DAILY (Appended: Controlled substance eRx refill - RxReferenceNumber: [id number]|1|0|1) Seroquel 100 mg Tab RxNorm: 918471 1 Tablet(s) PO BID 201111/26/2011 Inactive Seroquel 100 mg tablet RxNorm: 112693 Tablet(s) PO 11/27/2011 02/16/2012 Inactive TAKE 1 TABLET BY MOUTH TWICE DAILY Nexium 40 mg capsule,delayed release RxNorm: 948746 1 Capsule(s) PO daily 11/16/2011 02/15/2012 Inactive cyanocobalamin (vitamin B-12) 1,000 mcg/mL Injection RxNorm: 538729 1 Milliliter(s ) Inj 10/30/2011 10/30/2011 Inactive hydrocodone-acetaminophen 10 mg-325 mg Tab RxNorm: 1485712 1 Tablet(s) PO QID 10/13/2011 11/23/2011 Inactive TAKE 1 TABLET BY MOUTH FOUR TIMES DAILY (Appended: Controlled substance eRx refill - RxReferenceNumber: [id number]|1|0|1) Effexor XR 150 mg capsule,extended release RxNorm: 151044 1 Capsule(s) PO BID 10/12/2011 01/09/2012 Inactive Fish Oil 1,000 mg Cap RxNorm: 1 Capsule(s) PO QID 10/02/2011 No Stop Date Active Vitamin B-12 1,000 mcg/mL Injection RxNorm: 546420 Milliliter(s) Inj 10/02/2011 10/02/2011 Inactive Kenalog 40 mg/mL Susp for Injection RxNorm: 5107823 Milliliter(s) Inj 10/02/2011 10/02/2011 Inactive diazepam 10 mg Tab RxNorm: 299292 1 Tablet(s) PO daily 201112/13/2011 Inactive TAKE 1 TABLET BY MOUTH THREE TIMES DAILY (Appended: Controlled substance eRx refill - RxReferenceNumber: [id number]|1|0|1) Vitamin B-12 1,000 mcg/mL Injection RxNorm: 222551 Milliliter(s) Inj 09/01/2011 09/01/2011 Inactive hydrocodone-acetaminophen 10 mg-325 mg Tab RxNorm: 7410191 1 Tablet(s) PO QID 08/25/2011 10/05/2011 Inactive TAKE 1 TABLET BY MOUTH FOUR TIMES DAILY (Appended: Controlled substance eRx refill - RxReferenceNumber: [id number]|1|0|1) diazepam 10 mg Tab RxNorm: 338173 Tablet(s) PO 08/10/2011 No Stop Date Active TAKE 1 TABLET BY MOUTH THREE TIMES DAILY (Appended: Controlled substance eRx refill - RxReferenceNumber: [id number]|1|0|1) Vitamin B-12 1,000 mcg/mL Injection RxNorm: 479502 Milliliter(s) Inj 08/03/2011 08/03/2011 Inactive fluticasone 50 mcg/actuation Nasal [place], Susp RxNorm: 5483932 2 [place] NASAL BID 07/27/2011 08/19/2012 Inactive hydrocodone-acetaminophen 10 mg-325 mg Tab RxNorm: 0093537 Tablet(s) PO 07/09/2011 08/24/2011 Inactive TAKE 1 TABLET BY MOUTH FOUR TIMES DAILY (Appended: Controlled substance eRx refill - RxReferenceNumber: [id number]|1|0|1) diazepam 10 mg Tab RxNorm: 246961 Tablet(s) PO 07/09/2011 08/09/2011 Inactive TAKE 1 TABLET BY MOUTH THREE TIMES DAILY (Appended: Controlled substance eRx refill - RxReferenceNumber: [id number]|1|0|1) diazepam 10 mg Tab RxNorm: 810930 Tablet(s) PO 07/08/2011 07/08/2011 Inactive TAKE 1 TABLET BY MOUTH THREE TIMES DAILY (Appended: Controlled substance eRx refill - RxReferenceNumber: [id number]|1|0|1) hydrocodone-acetaminophen 10 mg-325 mg Tab RxNorm: 0807058 Tablet(s) PO 07/08/2011 07/08/2011 Inactive TAKE 1 TABLET BY MOUTH FOUR TIMES DAILY (Appended: Controlled substance eRx refill - RxReferenceNumber: [id number]|1|0|1) cyclobenzaprine 10 mg tablet RxNorm: 571632 Tablet(s) PO 201109/01/2012 Inactive TAKE ONE TABLET BY MOUTH THREE TIMES DAILY Lipitor 40 mg Tab RxNorm: 242014 1 Tablet(s) PO daily 201106/16/2011 Inactive Lipitor 40 mg Tab RxNorm: 672644 1 Tablet(s) PO daily 201106/10/2012 Inactive trazodone 100 mg tablet RxNorm: 162734 Tablet(s) PO 06/02/2011 06/05/2012 Inactive TAKE 2 TABLETS BY MOUTH EVERY NIGHT AT BEDTIME diazepam 10 mg Tab RxNorm: 500627 Tablet(s) PO 05/28/2011 05/29/2011 Inactive TAKE 1 TABLET BY MOUTH THREE TIMES DAILY (Appended: Controlled substance eRx refill - RxReferenceNumber: [id number]|1|0|1) diazepam 10 mg Tab RxNorm: 540552 Tablet(s) PO 05/28/2011 07/08/2011 Inactive TAKE 1 TABLET BY MOUTH THREE TIMES DAILY (Appended: Controlled substance eRx refill - RxReferenceNumber: [id number]|1|0|1) hydrocodone-acetaminophen 10 mg-325 mg Tab RxNorm: 1417307 1 Tablet(s) PO QID 05/26/2011 07/08/2011 Inactive metoprolol tartrate 25 mg tablet RxNorm: 940508 Tablet(s) PO 04/10/2012 Inactive TAKE 1/2 TABLET BY MOUTH TWICE DAILY Savella 100 mg tablet RxNorm: 855878 Tablet(s) PO 05/14/2011 10/13/2012 Inactive TAKE 1 TABLET BY MOUTH DAILY Influenza Virus Vaccine 0.5 mL RxNorm: IM 02/23/2011 02/23/2011 Inactive B12 1000 mcg RxNorm: IM 02/23/20112010 Inactive hydrocodone-acetaminophen 10 mg-325 mg Tab RxNorm: 9950862 1 Tablet(s) PO QID 01/29/2011 01/28/2011 Inactive Restasis 0.05 % eye drops in a dropperette RxNorm: 861676 1 OPH BID No Start Date Active vitamin A-vit C-vit E-zinc-Se Tab RxNorm: 1 Tablet(s) PO daily No Start Date Active garlic extract Oral RxNorm: Oral No Start Date Active Acidophilus Tab RxNorm : 2 Tablet(s) PO QHS No Start Date Active Cranberry Concentrate Cap RxNorm: 1 Capsule(s) PO BID No Start Date Active Xopenex 1.25 mg/3 mL Neb Solution RxNorm: 280582 1 Milliliter(s) INH TID No Start Date Active niacin ER 500 mg Tab RxNorm: 034745 2 Tablet(s) PO HS No Start Date Active SenokotXTRA 17.2 mg Tab RxNorm: 9290160 Oral No Start Date Active Lotemax 0.5 % eye ointment RxNorm: 5776427 1 OPH QHS No Start Date Active Gaviscon Extra Strength Oral RxNorm: Oral No Start Date Active melatonin 3 mg Tab RxNorm: 062593 1 Tablet(s) PO QHS No Start Date Active Voltaren 1 % Topical Gel RxNorm: 919052 4 Gram(s) TOP QID No Start Date Active Vitamin D 1,000 unit Cap RxNorm: 888983 1 Capsule(s) PO QHS No Start Date Active Mucinex DM 30 mg-600 mg 12 hr Tab RxNorm: 8009648 1 Tablet(s) PO BID No Start Date Active calcium citrate 200 mg (950 mg) Tab RxNorm: 065322 1 Tablet(s) PO QID No Start Date Active valerian 530 mg Cap RxNorm: 2 Capsule(s) PO QHS No Start Date Active Anucort-HC 25 mg Suppository RxNorm: 2021040 1 Suppository RTL QDAY PRN No Start Date 01/14/2014 Inactive Nexium 40 mg Capsule, delayed release RxNorm: 198333 1 Capsule(s) PO daily No Start Date 11/15/2011 Inactive Lipitor 20 mg tablet RxNorm: 417896 1 Tablet(s) PO QHS No Start Date 02/25/2012 Inactive mupirocin 2 % topical ointment RxNorm: 114203 1 Application TOP PRN No Start Date 10/16/2013 Inactive fluconazole 150 mg tablet RxNorm: 295876 1 Tablet(s) PO daily No Start Date 03/10/2012 Inactive Fish Oil 1,000 mg Cap RxNorm: 1 Capsule(s) PO TID No Start Date 10/01/2011 Inactive hydrocodone-acetaminophen 10 mg-325 mg Tab RxNorm: 6341312 1 Tablet(s) PO QID No Start Date 05/25/2011 Inactive Zithromax 250 mg tablet RxNorm: 182490 Tablet(s) PO No Start Date 07/20/2012 Inactive please give z lauro prednisone 10 mg tablet RxNorm: 098655 Tablet(s) PO taper. 6-5-4-3-2-1 # 21 No Start Date 09/16/2017 Inactive fluticasone 50 mcg/actuation Nasal [place], Susp RxNorm: 7502165 2 [place] NASAL BID No Start Date 07/26/2011 Inactive Seroquel 100 mg Tab RxNorm: 983539 1 Tablet(s) PO BID No Start Date 11/26/2011 Inactive nystatin 100,000 unit/gram topical powder RxNorm: 802745 1 Application TOP QID until healed No Start Date 10/26/2016 Inactive Savella 100 mg Tab RxNorm: 858412 1 Tablet(s) PO daily No Start Date 05/13/2011 Inactive cyclobenzaprine 10 mg Tab RxNorm: 451711 1 Tablet(s) PO TID No Start Date 07/05/2011 Inactive metoprolol tartrate 25 mg Tab RxNorm: 332708 1/2 Tablet(s) PO BID No Start Date 05/25/2011 Inactive trazodone 100 mg Tab RxNorm: 444483 2 Tablet(s) PO QHS No Start Date 06/01/2011 Inactive Zithromax Z-Lauro 250 mg tablet RxNorm: 835698 1 Tablet(s) PO UD No Start Date 07/11/2015 Inactive z lauro Effexor XR 150 mg 24 hr Cap RxNorm: 055432 1 Capsule(s) PO BID No Start Date 10/11/2011 Inactive diazepam 10 mg Tab RxNorm: 909327 1 Tablet(s) PO TID No Start Date 05/28/2011 Inactive tramadol 50 mg tablet RxNorm: 233587 1-2 Tablet(s) PO Q6 as needed No Start Date 05/28/2015 Inactive Medication Administered Medication Codes Instructions Start Date Status cyanocobalamin (vit B-12) 1,000 mcg/mL injection solution RxNorm: 591776 1Milliliter 03/10/2018 No longer Active cyanocobalamin (vit B-12) 1,000 mcg/mL injection solution RxNorm: 013661 1Milliliter 10/19/2017 No longer Active cyanocobalamin (vit B-12) 1,000 mcg/mL injection solution RxNorm: 866017 1Milliliter 08/19/2017 No longer Active cyanocobalamin (vit B-12) 1,000 mcg/mL injection solution RxNorm: 216879 1Milliliter 07/06/2017 No longer Active cyanocobalamin (vit B-12) 1,000 mcg/mL injection solution RxNorm: 143667 1Milliliter 04/27/2017 No longer Active cyanocobalamin (vit B-12) 1,000 mcg/mL injection solution RxNorm: 751143 1Milliliter 11/17/2016 No longer Active cyanocobalamin (vit B-12) 1,000 mcg/mL injection solution RxNorm: 256453 1Milliliter 10/12/2016 No longer Active cyanocobalamin (vit B-12) 1,000 mcg/mL injection solution RxNorm: 544796 1Milliliter 09/11/2016 No longer Active cyanocobalamin (vit B-12) 1,000 mcg/mL injection solution RxNorm: 936751 Milliliter 07/03/2016 No longer Active cyanocobalamin (vit B-12) 1,000 mcg/mL injection solution RxNorm: 003296 1Milliliter 04/20/2016 No longer Active cyanocobalamin (vit B-12) 1,000 mcg/mL injection solution RxNorm: 351949 Milliliter 02/13/2016 No longer Active cyanocobalamin (vit B-12) 1,000 mcg/mL injection solution RxNorm: 643168 1Milliliter 12/02/2015 No longer Active cyanocobalamin (vit B-12) 1,000 mcg/mL injection solution RxNorm: 813399 1Milliliter 10/29/2015 No longer Active cyanocobalamin (vit B-12) 1,000 mcg/mL injection solution RxNorm: 478663 Milliliter 06/10/2015 No longer Active cyanocobalamin (vit B-12) 1,000 mcg/mL injection solution RxNorm: 154258 Milliliter 02/15/2014 No longer Active cyanocobalamin (vit B-12) 1,000 mcg/mL injection kit RxNorm : 181274 1Milliliter 01/15/2014 No longer Active Kenalog 40 mg/mL suspension for injection RxNorm: 4405714 1Milliliter 01/15/2014 No longer Active cyanocobalamin (vit B-12) 1,000 mcg/mL injection solution RxNorm: 271401 1Milliliter 12/04/2013 No longer Active Vitamin B-12 1,000 mcg/mL injection solution RxNorm: 081932 Milliliter 07/24/2013 No longer Active Vitamin B-12 1,000 mcg/mL injection solution RxNorm: 074746 1Milliliter 05/10/2013 No longer Active Kenalog 40 mg/mL Susp for Injection RxNorm: 2596246 Milliliter 03/06/2013 No longer Active cyanocobalamin (vitamin B-12) 1,000 mcg/mL Injection RxNorm : 008120 Milliliter 02/20/2013 No longer Active Kenalog 40 mg/mL Susp for Injection RxNorm: 2551052 Milliliter 12/26/2012 No longer Active cyanocobalamin (vitamin B-12) 1,000 mcg/mL Injection RxNorm : 712977 Milliliter 12/21/2012 No longer Active Vitamin B-12 1,000 mcg/mL Injection RxNorm: 194379 1Milliliter 11/16/2012 No longer Active Tubersol 5 tub. unit/0.1 mL Intradermal RxNorm: 806886 Milliliter 09/26/2012 No longer Active cyanocobalamin (vitamin B-12) 1,000 mcg/mL Injection RxNorm : 372741 1Milliliter 09/12/2012 No longer Active Kenalog 40 mg/mL Susp for Injection RxNorm: 5097366 1Milliliter 08/11/2012 No longer Active Vitamin B-12 1,000 mcg/mL Injection RxNorm: 464074 1Milliliter 08/11/2012 No longer Active Vitamin B-12 1,000 mcg/mL Injection RxNorm: 066874 1Milliliter 07/13/2012 No longer Active Kenalog 40 mg/mL Susp for Injection RxNorm: 3477645 1Milliliter 01/13/2012 No longer Active Vitamin B-12 1,000 mcg/mL Injection RxNorm: 361561 Milliliter 12/21/2011 No longer Active cyanocobalamin (vitamin B-12) 1,000 mcg/mL Injection RxNorm : 389394 1Milliliter 10/30/2011 No longer Active Vitamin B-12 1,000 mcg/mL Injection RxNorm: 276087 Milliliter 10/02/2011 No longer Active Kenalog 40 mg/mL Susp for Injection RxNorm: 3815893 Milliliter 10/02/2011 No longer Active Vitamin B-12 1,000 mcg/mL Injection RxNorm: 806988 Milliliter 09/01/2011 No longer Active Vitamin B-12 1,000 mcg/mL Injection RxNorm: 762832 Milliliter 08/03/2011 No longer Active B12 1000 [...] 2011 Weight gain ICD-9: 783.1 06/29/2011 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 Reason For Visit Reason [...] Item Item Code Result Date Comp Metabolic Lbg747 NA 138 mEq/L 09/20/2017 Comp Metabolic Awa576 K 4.1 mEq/L 09/20/2017 Comp Metabolic Obh656 CL 101 mEq/L 09/20/2017 Comp Metabolic Iwn766 CO2 25.0 mEq/L 09/20/2017 Comp Metabolic Crf579 ANION GAP 16 09/20/2017 Comp Metabolic Omt286 GLUCOSE 105 mg/dL 09/20/2017 Comp Metabolic Sbo869 Creat 0.8 mg/dL 09/20/2017 Comp Metabolic Iym610 eGFR 86 ml/min/1.73m2 09/20/2017 Comp Metabolic Ani081 BUN 24 mg/dL 09/20/2017 Comp Metabolic Epl754 B/C Ratio 31.6 Ratio 09/20/2017 Comp Metabolic Uxs278 CALCIUM 10.0 mg/dL 09/20/2017 Comp Metabolic Kfc300 ALK PHOS 63 U/L 09/20/2017 Comp Metabolic Kwu848 AST(SGOT) 28 U/L 09/20/2017 Comp Metabolic Cjq676 ALT(SGPT) 34 U/L 09/20/2017 Comp Metabolic Eqp605 BILI T 0.3 mg/dL 09/20/2017 Comp Metabolic Gid663 ALBUMIN 4.8 g/dL 09/20/2017 Comp Metabolic Tno425 TPRO 7.2 g/dL 09/20/2017 Comp Metabolic Fha111 GLOB 2.4 g/dL 09/20/2017 Comp Metabolic Jcy300 A/G Ratio 2.0 Ratio 09/20/2017 Comp Metabolic Wyq940 Osmo 280 mOsmo 09/20/2017 Urine Culture Ucult Preliminary NO Growth Day 1 09/20/2017 Urine Culture Ucult Complete NO Growth Day 2 09/20/2017 Vitamin D 25 Oh Qgl1291 VITAMIN D, 25 HYDROXY 46.43 ng/mL Comp Metabolic Rzd032 NA 143 mEq/L 08/25/2017 Comp Metabolic Jou828 K 4.1 mEq/L 08/25/2017 Comp Metabolic Rta198 CL 102 mEq/L 08/25/2017 Comp Metabolic Ycf738 CO2 33.0 mEq/L 08/25/2017 Comp Metabolic Mqn321 ANION GAP 12 08/25/2017 Comp Metabolic Yml898 GLUCOSE 99 mg/dL 08/25/2017 Comp Metabolic Hxs827 Creat 0.8 mg/dL 08/25/2017 Comp Metabolic Zmd247 eGFR 86 ml/min/1.73m2 08/25/2017 Comp Metabolic Fru751 BUN 19 mg/dL 08/25/2017 Comp Metabolic Nnj965 B/C Ratio 25.0 Ratio 08/25/2017 Comp Metabolic Kba359 CALCIUM 9.5 mg/dL 08/25/2017 Comp Metabolic Phh331 ALK PHOS 63 U/L 08/25/2017 Comp Metabolic Ktu982 AST(SGOT) 17 U/L 08/25/2017 Comp Metabolic Uld874 ALT(SGPT) 20 U/L 08/25/2017 Comp Metabolic Ysj011 BILI T 0.3 mg/dL 08/25/2017 Comp Metabolic Ffl366 ALBUMIN 4.5 g/dL 08/25/2017 Comp Metabolic Ehu715 TPRO 6.6 g/dL 08/25/2017 Comp Metabolic Cyu054 GLOB 2.1 g/dL 08/25/2017 Comp Metabolic Nos276 A/G Ratio 2.1 Ratio 08/25/2017 Comp Metabolic Gzd677 Osmo 287 mOsmo 08/25/2017 B12 Jty448 B12 904.00 pg/ml 08/25/2017 Tsh Ord6 TSH [...] 103.4 fl 08/25/2017 Cbc With Differential Ord2 [place]% 7.5 % 08/25/2017 Cbc With Differential Ord2 [...] 3.65 K/ul 08/25/2017 Cbc With Differential Ord2 [place] ABS# 0.6 K/ul 08/25/2017 Cbc With Differential Ord2 Eos ABS# 0.1 K/ul 08/25/2017 Cbc With Differential Ord2 Baso ABS# 0.0 K/ul 08/25/2017 Tsh Ord6 hTSH II 1.18 uIU/mL 10/12/2016 Comp Metabolic Fud459 NA 139 mEq/L 10/12/2016 Comp Metabolic Fmy922 K 3.5 mEq/L 10/12/2016 Comp Metabolic Eop332 CL 102 mEq/L 10/12/2016 Comp Metabolic Osn066 CO2 25.0 mEq/L 10/12/2016 Comp Metabolic Ozc071 ANION GAP 16 10/12/2016 Comp Metabolic Ylv909 GLUCOSE 84 mg/dL 10/12/2016 Comp Metabolic Jzk275 Creat 0.6 mg/dL 10/12/2016 Comp Metabolic Ahk439 eGFR 105 ml/min/1.73m2 10/12/2016 Comp Metabolic Mpy035 BUN 12 mg/dL 10/12/2016 Comp Metabolic Ikr631 B/C Ratio 18.8 Ratio 10/12/2016 Comp Metabolic Tlh314 CALCIUM 9.2 mg/dL 10/12/2016 Comp Metabolic Vgm547 ALK PHOS 59 U/L 10/12/2016 Comp Metabolic Bub814 AST(SGOT) 21 U/L 10/12/2016 Comp Metabolic Hqk795 ALT(SGPT) 27 U/L 10/12/2016 Comp Metabolic Vun580 BILI T 0.2 mg/dL 10/12/2016 Comp Metabolic Roj295 ALBUMIN 4.4 g/dL 10/12/2016 Comp Metabolic Edq235 TPRO 6.7 g/dL 10/12/2016 Comp Metabolic Mgh941 GLOB 2.3 g/dL 10/12/2016 Comp Metabolic Hun099 A/G Ratio 1.9 Ratio 10/12/2016 Comp Metabolic Mbt114 Osmo 276 mOsmo 10/12/2016 Cbc With Differential [...] 31.9 % 10/12/2016 Cbc With Differential Ord2 [place]% 8.0 % 10/12/2016 Cbc With Differential Ord2 [...] 3.12 K/ul 10/12/2016 Cbc With Differential Ord2 [place] ABS# 0.8 K/ul 10/12/2016 Cbc With Differential Ord2 Eos ABS# 0.1 K/ul 10/12/2016 Cbc With Differential Ord2 Baso ABS# 0.0 K/ul 10/12/2016 Lipid Ord30 CHOL 194 mg/dL 10/12/2016 Lipid Ord30 HDL 76.0 mg/dl 10/12/2016 Lipid Ord30 TRIG 159 mg/dL 10/12/2016 Lipid Ord30 LDL 86 mg/dL 10/12/2016 Lipid Ord30 C/HDL 2.6 Ratio 10/12/2016 Comp Metabolic Pfa238 NA 139 mEq/L 09/11/2016 Comp Metabolic Jzg549 K 3.6 mEq/L 09/11/2016 Comp Metabolic Gco838 CL 102 mEq/L 09/11/2016 Comp Metabolic Dsx787 CO2 26.0 mEq/L 09/11/2016 Comp Metabolic Zbq705 ANION GAP 15 09/11/2016 Comp Metabolic Csa213 GLUCOSE 90 mg/dL 09/11/2016 Comp Metabolic Xja582 Creat 0.6 mg/dL 09/11/2016 Comp Metabolic Ges453 eGFR 111 ml/min/1.73m2 09/11/2016 Comp Metabolic Ubq514 BUN 14 mg/dL 09/11/2016 Comp Metabolic Oyf431 B/C Ratio 23.0 Ratio 09/11/2016 Comp Metabolic Opc912 CALCIUM 9.0 mg/dL 09/11/2016 Comp Metabolic Vxd165 ALK PHOS 56 U/L 09/11/2016 Comp Metabolic Mkc828 AST(SGOT) 21 U/L 09/11/2016 Comp Metabolic Mhz970 ALT(SGPT) 17 U/L 09/11/2016 Comp Metabolic Klx818 BILI T 0.2 mg/dL 09/11/2016 Comp Metabolic Gts877 ALBUMIN 4.1 g/dL 09/11/2016 Comp Metabolic Wer937 TPRO 6.5 g/dL 09/11/2016 Comp Metabolic Ydh689 GLOB 2.4 g/dL 09/11/2016 Comp Metabolic Osl929 A/G Ratio 1.7 Ratio 09/11/2016 Comp Metabolic Zxj916 Osmo 278 mOsmo 09/11/2016 Tsh Ord6 hTSH [...] 33.0 pg 09/11/2016 Cbc With Differential Ord2 [place]% 8.6 % 09/11/2016 Cbc With Differential Ord2 [...] 3.35 K/ul 09/11/2016 Cbc With Differential Ord2 [place] ABS# 1.0 K/ul 09/11/2016 Cbc With Differential Ord2 Eos ABS# 0.1 K/ul 09/11/2016 Cbc With Differential Ord2 Baso ABS# 0.0 K/ul 09/11/2016 Lipid Ord30 CHOL 168 mg/dL 09/11/2016 Lipid Ord30 HDL 74.0 mg/dl 09/11/2016 Lipid Ord30 TRIG 167 mg/dL 09/11/2016 Lipid Ord30 LDL 61 mg/dL 09/11/2016 Lipid Ord30 C/HDL 2.3 Ratio 09/11/2016 B12 Ufg265 B12 474.00 pg/ml 09/11/2016 B12 Sgd779 B12 827.00 pg/ml 03/02/2016 Cbc With Differential [...] 108.3 fl 02/28/2016 Cbc With Differential Ord2 [place]% 5.4 % 02/28/2016 Cbc With Differential Ord2 [...] 2.08 K/ul 02/28/2016 Cbc With Differential Ord2 [place] ABS# 0.3 K/ul 02/28/2016 Cbc With Differential Ord2 Eos ABS# 0.1 K/ul 02/28/2016 Cbc With Differential Ord2 Baso ABS# 0.0 K/ul 02/28/2016 Sed Rate Ord21 ESR 5 mm/hr 02/28/2016 C-Reactive Protein Qnt Crqnt CRP 0.1 mg/dl 02/28/2016 Comp Metabolic Xqt010 NA 136 mEq/L 02/28/2016 Comp Metabolic Jmx213 K 4.0 mEq/L 02/28/2016 Comp Metabolic Iyh966 CL 103 mEq/L 02/28/2016 Comp Metabolic Did939 CO2 27.0 mEq/L 02/28/2016 Comp Metabolic Qgw473 ANION GAP 10 02/28/2016 Comp Metabolic Gsu071 GLUCOSE 138 mg/dL 02/28/2016 Comp Metabolic Ipd647 Creat 0.6 mg/dL 02/28/2016 Comp Metabolic Rmw339 eGFR 120 ml/min/1.73m2 02/28/2016 Comp Metabolic Jpb505 BUN 15 mg/dL 02/28/2016 Comp Metabolic Vxl538 B/C Ratio 26.3 Ratio 02/28/2016 Comp Metabolic Lhw069 CALCIUM 8.8 mg/dL 02/28/2016 Comp Metabolic Ebc353 ALK PHOS 58 U/L 02/28/2016 Comp Metabolic Gpi554 AST(SGOT) 21 U/L 02/28/2016 Comp Metabolic Shw149 ALT(SGPT) 21 U/L 02/28/2016 Comp Metabolic Qgq292 BILI T 0.2 mg/dL 02/28/2016 Comp Metabolic Hfv121 ALBUMIN 3.8 g/dL 02/28/2016 Comp Metabolic Fmk551 TPRO 5.7 g/dL 02/28/2016 Comp Metabolic Ajn286 GLOB 1.9 g/dL 02/28/2016 Comp Metabolic Qic755 A/G Ratio 2.0 Ratio 02/28/2016 Comp Metabolic Ion730 Osmo 275 mOsmo 02/28/2016 Tsh Ord6 hTSH II 1.25 uIU/mL 02/28/2016 B12 Xpy670 B12 >1500.00 pg/ml 01/11/2016 Vitamin D 25 Oh Hjc0530 VITAMIN D, 25 HYDROXY 45.94 ng/mL Comp Metabolic Hhs651 NA 136 mEq/L 03/21/2015 Comp Metabolic Xuc129 K 3.8 mEq/L 03/21/2015 Comp Metabolic Pgp244 CL 101 mEq/L 03/21/2015 Comp Metabolic Nmu638 CO2 31.0 mEq/L 03/21/2015 Comp Metabolic Utc906 ANION GAP 8 03/21/2015 Comp Metabolic Quv310 GLUCOSE 101 mg/dL 03/21/2015 Comp Metabolic Crv107 Creat 0.7 mg/dL 03/21/2015 Comp Metabolic Inj963 eGFR 94 ml/min/1.73m2 03/21/2015 Comp Metabolic Pkp665 BUN 13 mg/dL 03/21/2015 Comp Metabolic Iod268 B/C Ratio 18.3 Ratio 03/21/2015 Comp Metabolic Rhg067 CALCIUM 9.3 mg/dL 03/21/2015 Comp Metabolic Fci805 ALK PHOS 58 U/L 03/21/2015 Comp Metabolic Ude393 AST(SGOT) 18 U/L 03/21/2015 Comp Metabolic Vtf057 ALT(SGPT) 22 U/L 03/21/2015 Comp Metabolic Yfr907 BILI T 0.3 mg/dL 03/21/2015 Comp Metabolic Xoa753 ALBUMIN 4.4 g/dL 03/21/2015 Comp Metabolic Drg070 TPRO 6.7 g/dL 03/21/2015 Comp Metabolic Krs704 GLOB 2.3 g/dL 03/21/2015 Comp Metabolic Tgi188 A/G Ratio 1.9 Ratio 03/21/2015 Comp Metabolic Yhb420 Osmo 272 mOsmo 03/21/2015 %Hba1C Lob577 % HbA1c 27588-7 5.4 % 03/21/2015 %Hba1C Qba379 Gluc Ave 108 mg/dL 03/21/2015 Cbc With [...] 1.32 uIU/mL 03/21/2015 URINALYSIS NONAUTO W/O SCOPE 41265 Specific [place] 1.025 DateTime(Free Text in Aprima) URINALYSIS NONAUTO W/O SCOPE 37241 PH 5.0 DateTime(Free Text in Aprima) URINALYSIS NONAUTO W/O SCOPE 10735 GLUCOSE NEG DateTime( Free Text in Apr[employer]) URINALYSIS NONAUTO W/O SCOPE 11313 Protein NEG DateTime( Free Text in Apr[employer]) URINALYSIS NONAUTO W/O SCOPE 74772 Blood NEG DateTime(Free Text in Aprima) URINALYSIS NONAUTO W/O SCOPE 78699 Bilirubin NEG DateTime(Free Text in Apr[employer]) URINALYSIS NONAUTO W/O SCOPE 73537 Ketones NEG DateTime( Free Text in Apr[employer]) URINALYSIS NONAUTO W/O SCOPE 92902 Urobilinogen NEG DateTime(Free Text in Apr[employer]) URINALYSIS NONAUTO W/O SCOPE 90301 Nitrite NEG DateTime( Free Text in Aprima) URINALYSIS NONAUTO W/O SCOPE 36250 Leukocytes NEG DateTime(Free Text in Aprima) Review [...] clear 01/15/2014 None Full Exam - General 1995 Ears/Nose/Throat [...] station 06/22/2011 None Full Exam - General 1995 Psychiatric orientation/consciousness Overall: oriented to person, place and time 06/22/2011 None Full Exam - General 1995 Psychiatric [...] developed 06/11/2011 None Full Exam - General 1995 [...] Procedure Codes Date THER/PROPH/DIAG INJ SC/IM CPT-4: 26445 04/05/2018 VITAMIN B12 INJECTION CPT-4: J3420 04/05/2018 THER/PROPH/DIAG INJ SC/IM CPT-4: 65777 03/10/2018 VITAMIN B12 INJECTION CPT-4: J3420 03/10/2018 THER/PROPH/DIAG INJ SC/IM CPT-4: 06208 10/19/2017 VITAMIN B12 INJECTION CPT-4: J3420 10/19/2017 URINALYSIS NONAUTO W/O SCOPE CPT-4: 81822 09/17/2017 THER/PROPH/DIAG INJ SC/IM CPT-4: 20883 08/19/2017 VITAMIN B12 INJECTION CPT-4: J3420 08/19/2017 THER/PROPH/DIAG INJ SC/IM CPT-4: 13246 07/06/2017 VITAMIN B12 INJECTION CPT-4: J3420 07/06/2017 THER/PROPH/DIAG INJ SC/IM CPT-4: 00828 04/27/2017 VITAMIN B12 INJECTION CPT-4: J3420 04/27/2017 THER/PROPH/DIAG INJ SC/IM CPT-4: 09027 11/17/2016 VITAMIN B12 INJECTION CPT-4: J3420 11/17/2016 THER/PROPH/DIAG INJ SC/IM CPT-4: 09704 10/12/2016 VITAMIN B12 INJECTION CPT-4: J3420 10/12/2016 THER/PROPH/DIAG INJ SC/IM CPT-4: 63118 09/11/2016 VITAMIN B12 INJECTION CPT-4: J3420 09/11/2016 THER/PROPH/DIAG INJ SC/IM CPT-4: 82923 07/03/2016 VITAMIN B12 INJECTION CPT-4: J3420 07/03/2016 VITAMIN B12 INJECTION CPT-4: J3420 04/20/2016 THER/PROPH/DIAG INJ SC/IM CPT-4: 66535 04/20/2016 ADMIN INFLUENZA VIRUS VAC CPT-4: G0008 03/17/2016 IIV4 FLU VACC NO PRESERV ID Formatting Model/CDA Sections, Assigned to/Kathy Lopez SNOMED CT: [id number] CPT-4: 15093Qofwfee 03/17/2016 THER/PROPH/DIAG INJ SC/IM CPT-4: 37538 02/13/2016 VITAMIN B12 INJECTION CPT-4: J3420 02/13/2016 URINALYSIS NONAUTO W/O SCOPE CPT-4: 25018 12/10/2015 THER/PROPH/DIAG INJ SC/IM CPT-4: 81043 12/02/2015 VITAMIN B12 INJECTION CPT-4: J3420 12/02/2015 PNEUMOCOCCAL VACC [address]: [id number] CPT-4: 85248 12/02/2015 IMMUNIZATION ADMIN CPT -4: 31254 12/02/2015 THER/PROPH/DIAG INJ SC/IM CPT-4: 40099 10/29/2015 VITAMIN B12 INJECTION CPT-4: J3420 10/29/2015 THER/PROPH/DIAG INJ SC/IM CPT-4: 37572 06/10/2015 VITAMIN B12 INJECTION CPT-4: J3420 06/10/2015 THER/PROPH/DIAG INJ SC/IM CPT-4: 70021 02/15/2014 VITAMIN B12 INJECTION CPT-4: J3420 02/15/2014 TRIAMCINOLONE ACET INJ NOS CPT-4: J3301 01/15/2014 VITAMIN B12 INJECTION CPT-4: J3420 01/15/2014 THER/PROPH/DIAG INJ SC/IM CPT-4: 38977 12/04/2013 VITAMIN B12 INJECTION CPT-4: J3420 12/04/2013 THER/PROPH/DIAG INJ SC/IM CPT-4: 28656 07/24/2013 VITAMIN B12 INJECTION CPT-4: J3420 07/24/2013 PRESCRIP TRANSMIT VIA ERX SY CPT-4: G8553 06/12/2013 VITAMIN B12 INJECTION CPT-4: J3420 05/10/2013 THER/PROPH/DIAG INJ SC/IM CPT-4: 15882 05/10/2013 TRIAMCINOLONE ACET INJ NOS CPT-4: J3301 03/06/2013 PRESCRIP TRANSMIT VIA ERX SY CPT-4: G8553 03/06/2013 ADMIN INFLUENZA VIRUS VAC CPT-4: G0008 02/20/2013 FLULAVAL VACC, 3 YRS & >, IM CPT-4: Q2036 02/20/2013 THER/PROPH/DIAG INJ SC/IM CPT-4: 05286 02/20/2013 VITAMIN B12 INJECTION CPT-4: J3420 02/20/2013 THER/PROPH/DIAG INJ SC/IM CPT-4: 66435 12/26/2012 TRIAMCINOLONE ACET INJ NOS CPT-4: J3301 12/26/2012 THER/PROPH/DIAG INJ SC/IM CPT-4: 34709 12/21/2012 VITAMIN B12 INJECTION CPT-4: J3420 12/21/2012 THER/PROPH/DIAG INJ SC/IM CPT-4: 20987 11/16/2012 VITAMIN B12 INJECTION CPT-4: J3420 11/16/2012 TB INTRADERMAL TEST (includes injection fee) CPT-4: 95094 09/26/2012 THER/PROPH/DIAG INJ SC/IM CPT-4: 99712 09/12/2012 VITAMIN B12 INJECTION CPT-4: J3420 09/12/2012 TRIAMCINOLONE ACET INJ NOS CPT-4: J3301 08/11/2012 VITAMIN B12 INJECTION CPT-4: J3420 08/11/2012 THER/PROPH/DIAG INJ SC/IM CPT-4: 10988 08/11/2012 VITAMIN B12 INJECTION CPT-4: J3420 07/13/2012 THER/PROPH/DIAG INJ SC/IM CPT-4: 72331 07/13/2012 THER/PROPH/DIAG INJ SC/IM CPT-4: 87570 05/26/2012 TRIAMCINOLONE ACET INJ NOS CPT-4: J3301 05/26/2012 VITAMIN B12 INJECTION CPT-4: J3420 05/26/2012 ADMIN INFLUENZA VIRUS VAC CPT-4: G0008 03/02/2012 FLULAVAL VACC, 3 YRS & >, IM CPT-4: Q2036 03/02/2012 PRESCRIP TRANSMIT VIA ERX SY CPT-4: G8553 02/15/2012 TRIAMCINOLONE ACET INJ NOS CPT-4: J3301 01/13/2012 VITAMIN B12 INJECTION CPT-4: J3420 12/21/2011 VITAMIN B12 INJECTION CPT-4: J3420 10/30/2011 THER/PROPH/DIAG INJ SC/IM CPT-4: 02234 10/30/2011 THER/PROPH/DIAG INJ SC/IM CPT-4: 83640 10/02/2011 VITAMIN B12 INJECTION CPT-4: J3420 10/02/2011 TRIAMCINOLONE [facility] INJ NOS CPT-4: J3301 10/02/2011 PRESCRIP TRANSMIT VIA ERX SY CPT-4: G8553 10/02/2011 VITAMIN B12 INJECTION CPT-4: J3420 09/01/2011 URINALYSIS NONAUTO W/O SCOPE CPT-4: 26119 08/03/2011 VITAMIN B12 INJECTION CPT-4: J3420 08/03/2011 THER/PROPH/DIAG INJ SC/IM CPT-4: 55472 08/03/2011 THER/PROPH/DIAG INJ SC/IM CPT-4: 55861 06/11/2011 VITAMIN B12 INJECTION CPT-4: J3420 06/11/2011 ROUTINE VENIPUNCTURE CPT-4: 37909 06/11/2011 THER/PROPH/DIAG INJ SC/IM CPT-4: 94887 02/23/2011 VITAMIN B12 INJECTION CPT-4: J3420 02/23/2011 ADMIN INFLUENZA VIRUS VAC CPT-4: G0008 02/23/2011 FLULAVAL VACC, 3 YRS & >, IM CPT-4: Q2036 02/23/2011 Vital Signs Date Vital 06/01/2018 Blood Pressure 1: 138/70 Code : 8480-6 BMI: 30.9 Code : 57277-6 Heart Rate 1 : 120 bpm Height: 5'9" Respiratory Rate: 18 bpm SpO2: 96% Weight: 209 lbs 04/05/2018 Blood Pressure 1: 144/80 Code : 8480-6 BMI: 30.9 Code : 73183-6 Heart Rate 1 : 118 bpm Height: 5'9" SpO2: 98% Weight: 209 lbs 03/10/2018 Blood Pressure 1: 128/82 Code : 8480-6 Blood Pressure 1: 162/74 Code: 8480-6 BMI: 30.3 Code: 60011-7 Heart Rate 1: 101 bpm Height: 5'9" SpO2: 98% Weight: 205 lbs 01/13/2018 Blood Pressure 1: 102/78 Code : 8480-6 BMI: 31.6 Code : 39784-1 Heart Rate 1 : 103 bpm Height: 5'9" SpO2: 98% Weight: 214 lbs 11/25/2017 Blood Pressure 1: 114/80 Code : 8480-6 BMI: 30.3 Code : 25706-1 Heart Rate 1 : 112 bpm Height: 5'9" SpO2: 98% Weight: 205 lbs 10/19/2017 Blood Pressure 1: 110/70 Code : 8480-6 BMI: 30.7 Code : 88266-4 Heart Rate 1 : 102 bpm Height: 5'9" SpO2: 97% Weight: 208 lbs 09/17/2017 Blood Pressure 1: 132/78 Code : 8480-6 BMI: 30.4 Code : 10195-0 Heart Rate 1 : 117 bpm Height: 5'9" SpO2: 97% Weight: 206 lbs 09/06/2017 Blood Pressure 1: 110/78 Code : 8480-6 BMI: 29.8 Code : 50050-1 Heart Rate 1 : 106 bpm Height: 5'9" SpO2: 97% Weight: 202 lbs 08/19/2017 Blood Pressure 1: 136/72 Code : 8480-6 BMI: 30.4 Code : 72217-8 Heart Rate 1 : 108 bpm Height: 5'9" SpO2: 94% Weight: 206 lbs 07/06/2017 Blood Pressure 1: 154/80 Code : 8480-6 Heart Rate 1: 111 bpm Height: 5'9" Respiratory Rate: 20 bpm SpO2: 98% Weight: 04/27/2017 Blood Pressure 1: 138/78 Code : 8480-6 BMI: 30.4 Code : 60284-7 Heart Rate 1 : 96 bpm Height: 5'9" SpO2: 97% Weight: 206 lbs 04/06/2017 Blood Pressure 1: 108/80 Code : 8480-6 BMI: 31.0 Code : 14963-9 Heart Rate 1 : 96 bpm Height: 5'9" SpO2: 98% Weight: 210 lbs 02/25/2017 Blood Pressure 1: 132/80 Code : 8480-6 BMI: 32.5 Code : 26653-4 Heart Rate 1 : 112 bpm Height: 5'9" SpO2: 94% Weight: 220 lbs 01/19/2017 Blood Pressure 1: 122/68 Code : 8480-6 Heart Rate 1: 100 bpm Height: 5'9" SpO2: 95% Weight: 11/17/2016 Blood Pressure 1: 132/74 Code : 8480-6 BMI: 32.2 Code : 45139-6 Heart Rate 1 : 98 bpm Height: 5'9" SpO2: 94% Weight: 218 lbs 10/12/2016 Blood Pressure 1: 130/82 Code : 8480-6 BMI: 32.2 Code : 82767-5 Heart Rate 1 : 97 bpm Height: 5'9" SpO2: 94% Weight: 218 lbs 08/18/2016 Blood Pressure 1: 132/78 Code : 8480-6 BMI: 32.0 Code : 17239-5 Heart Rate 1 : 113 bpm Height: 5'9" SpO2: 98% Weight: 217 lbs 08/07/2016 Blood Pressure 1: 126/70 Code : 8480-6 BMI: 33.1 Code : 05828-3 Heart Rate 1 : 102 bpm Height: 5'9" SpO2: 94% Weight: 224 lbs 07/31/2016 Blood Pressure 1: 134/66 Code : 8480-6 BMI: 31.7 Code : 88009-6 Heart Rate 1 : 97 bpm Height: 5'9" SpO2: 95% Temperature: 36.4 (C) / 97.6 (F) Weight: 215 lbs 07/15/2016 Blood Pressure 1: 126/62 Code : 8480-6 Heart Rate 1: 105 bpm Height: 5'9" Weight: 07/07/2016 Blood Pressure 1: 106/54 Code : 8480-6 BMI: 31.7 Code : 30033-4 Heart Rate 1 : 93 bpm Height: 5'9" SpO2: 97% Weight: 215 lbs 06/25/2016 Heart Rate 1: 99 bpm Height: 5'9" SpO2: 95% Weight: 05/07/2016 Blood Pressure 1: 124/86 Code : 8480-6 BMI: 28.5 Code : 66140-2 Heart Rate 1 : 100 bpm Height: 5'9" SpO2: 96% Weight: 193 lbs 04/20/2016 Blood Pressure 1: 120/80 Code : 8480-6 BMI: 28.5 Code : 00453-9 Heart Rate 1 : 86 bpm Height: 5'9" SpO2: 96% Weight: 193 lbs 03/17/2016 Blood Pressure 1: 120/70 Code : 8480-6 BMI: 29.1 Code : 11864-6 Heart Rate 1 : 103 bpm Height: 5'9" SpO2: 96% Weight: 197 lbs 03/05/2016 Blood Pressure 1: 124/78 Code : 8480-6 Heart Rate 1: 82 bpm Height: 5'9" SpO2: 94% Weight: 02/28/2016 Blood Pressure 1: 94/50 Code : 8480-6 Heart Rate 1: 91 bpm Height: 5'9" SpO2: 94% Weight: 02/13/2016 Blood Pressure 1: 128/86 Code : 8480-6 BMI: 28.6 Code : 11193-9 Heart Rate 1 : 100 bpm Height: 5'9" SpO2: 96% Weight: 194 lbs 08/15/2015 Blood Pressure 1: 128/68 Code : 8480-6 BMI: 27.3 Code : 91350-4 Heart Rate 1 : 72 bpm Height: 5'9" SpO2: 92% Weight: 185 lbs 07/25/2015 Blood Pressure 1: 122/76 Code : 8480-6 BMI: 27.5 Code : 20940-6 Heart Rate 1 : 70 bpm Height: 5'9" SpO2: 94% Weight: 186 lbs 06/25/2015 Blood Pressure 1: 118/54 Code : 8480-6 BMI: 26.7 Code : 35174-0 Heart Rate 1 : 98 bpm Height: 5'9" SpO2: 97% Weight: 181 lbs 06/10/2015 Blood Pressure 1: 110/68 Code : 8480-6 Heart Rate 1: 80 bpm Height: SpO2: 98% Weight: 05/08/2015 Blood Pressure 1: 120/68 Code : 8480-6 BMI: 27.5 Code : 47618-2 Heart Rate 1 : 95 bpm Height: 5'9" SpO2: 96% Weight: 186 lbs 03/26/2015 Blood Pressure 1: 120/80 Code : 8480-6 Heart Rate 1: 102 bpm Respiratory Rate: 18 bpm SpO2: 92% Weight: 186 lbs 03/15/2015 Blood Pressure 1: 122/64 Code : 8480-6 BMI: 26.6 Code : 20242-5 Heart Rate 1 : 96 bpm Height: 5'9" SpO2: 96% Weight: 180 lbs 01/10/2015 Blood Pressure 1: 120/68 Code : 8480-6 BMI: 27.5 Code : 85718-3 Heart Rate 1 : 90 bpm Height: 5'9" Weight: 186 lbs 12/21/2014 Blood Pressure 1: 118/78 Code : 8480-6 BMI: 27.2 Code : 89390-7 Heart Rate 1 : 61 bpm Height: 5'9" SpO2: 97% Weight: 184 lbs 10/05/2014 Blood Pressure 1: 118/64 Code : 8480-6 BMI: 27.0 Code : 80977-9 Heart Rate 1 : 76 bpm Height: 5'9" Weight: 183 lbs 06/14/2014 Blood Pressure 1: 120/78 Code : 8480-6 BMI: 26.6 Code : 43795-1 Heart Rate 1 : 96 bpm Height: 5'9" Weight: 180 lbs 01/19/2014 Blood Pressure 1: 128/76 Code : 8480-6 BMI: 27.3 Code : 93951-7 Heart Rate 1 : 82 bpm Height: 5'9" Weight: 185 lbs 01/15/2014 Blood Pressure 1: 110/62 Code : 8480-6 BMI: 27.9 Code : 12140-9 Heart Rate 1 : 80 bpm Height: 5'9" Weight: 189 lbs 10/20/2013 Blood Pressure 1: 112/62 Code : 8480-6 BMI: 30.1 Code : 26578-9 Heart Rate 1 : 76 bpm Height: [...] Code : 8480-6 BMI: 30.6 Code : 78238-2 Heart Rate 1 : 92 bpm Height: 5'9" Weight: 207 lbs 05/23/2013 Blood Pressure 1: 120/78 Code : 8480-6 Heart Rate 1: 84 bpm Weight: 05/19/2013 Blood Pressure 1: 126/78 Code : 8480-6 BMI: 30.3 Code : 45226-3 Heart Rate 1 : 88 bpm Height: 5'9" Weight: 205 lbs 05/16/2013 Blood Pressure 1: 126/66 Code : 8480-6 BMI: 30.3 Code : 48497-1 Heart Rate 1 : 84 bpm Height: 5'9" Weight: 205 lbs 03/06/2013 Blood Pressure 1: 128/76 Code : 8480-6 BMI: 30.6 Code : 49313-0 Heart Rate 1 : 88 bpm Height: 5'9" Weight: 207 lbs 12/26/2012 Blood Pressure 1: 142/70 Code : 8480-6 BMI: 29.6 Code : 22494-5 Heart Rate 1 : 100 bpm Height: 5'9" Weight: 200 lbs 8 oz 11/21/2012 Blood Pressure 1: 132/80 Code : 8480-6 BMI: 29.5 Code : 92756-2 Heart Rate 1 : 96 bpm Height: [...] Code : 8480-6 BMI: 29.2 Code : 84221-7 Heart Rate 1 : 64 bpm Height: 5'9" Respiratory Rate: 16 bpm Weight: 198 lbs 03/11/2011 Blood Pressure 1: 106/60 Code : 8480-6 BMI: 28.8 Code : 91415-8 Heart Rate 1 : 100 bpm Height: 5'9" SpO2: 97% Weight: 195 lbs 02/12/2011 Weight: 192 lbs 01/29/2011 Blood Pressure 1: 100/64 Code : 8480-6 BMI: 28.1 Code : 17064-8 Heart Rate 1 : 100 bpm Height: [...] Hospital Follow Up _ pain 05/16/2013 left [id number]-rffb-nyokn to left knee-applying neosporin and covering with [...] pt to have a study done at [facility] [id number] shortness of breath Triggers exertion 03/11/2011 None [...] 02/12/2011 and pt went to her chiropractor/ dope house operator helper this week and was" worked on" and she has been feeling better shortness of breath Alleviating Factors rest 02/12/2011 pt states that her shortness of breath got better after her dope house operator helper adjusted her pelvis gastroesophageal reflux Quality heartburn [...] data Encounters Encounter Performer Location Codes Date ([id number]) 20997 EST. PATIENT, LEVEL IV Diagnosis: Chronic pain syndrome[ICD10: G89.4] Diagnosis: Generalized anxiety disorder[ICD10: F41.1] Diagnosis: Low back pain[ICD10: M54.5] Diagnosis: Essential (primary) hypertension[ICD10: I10] [facility] CPT-4: 25017 06/01/2018 ([id number]) 30912 EST. PATIENT, LEVEL IV Diagnosis: Essential (primary) hypertension[ICD10: I10] Diagnosis: Chronic pain syndrome[ICD10: G89.4] Diagnosis: Vitamin B12 deficiency anemia due to intrinsic factor deficiency[ ICD10: D51.0] [facility] CPT-4: 95145 04/05/2018 ([id number]) 80435 EST. PATIENT, LEVEL IV Diagnosis: Essential (primary) hypertension[ICD10: I10] Diagnosis: Generalized anxiety disorder[ICD10: F41.1] Diagnosis: Major depressive disorder, recurrent, mild[ICD10: F33.0] Diagnosis: Vitamin B12 deficiency anemia due to intrinsic factor deficiency[ ICD10: D51.0] Valentina Thompson MD, [facility] CPT-4: 19839 03/10/2018 ([id number]) 92791 EST. PATIENT, LEVEL IV Diagnosis: Headache[ICD10: R51] Diagnosis: Obstructive sleep apnea (adult) (pediatric)[ICD10: G47.33] Diagnosis: Cervicalgia[ICD10: M54.2] Valentina Thompson MD, [facility] CPT-4: 34580 01/13/2018 ([id number]) 31166 EST. PATIENT, LEVEL IV Diagnosis: Headache[ICD10: R51] Diagnosis: Spinal stenosis, cervical region[ICD10: M48.02] Diagnosis: Major depressive disorder, recurrent, mild[ICD10: F33.0] Valentina Thompson MD , [facility] CPT-4: 54828 11/25/2017 ([id number]) 63300 EST. PATIENT, LEVEL III Diagnosis: Allergic contact dermatitis due to plants, except food[ICD10: L23.7] Diagnosis: Vitamin B12 deficiency anemia due to intrinsic factor deficiency[ ICD10: D51.0] Valentina Thompson MD, [facility] CPT-4: 43785 10/19/2017 ([id number]) 98026 EST. PATIENT, LEVEL IV Diagnosis: Generalized abdominal pain[ICD10: R10.84] Diagnosis: Urinary tract infection, site not specified[ICD10: N39.0] Diagnosis: Hypokalemia[ICD10: E87.6] Valentina Thompson MD, [facility] CPT-4: 51866 09/17/2017 ([id number]) 68470 EST. PATIENT, LEVEL IV Diagnosis: Chronic pain syndrome[ICD10: G89.4] Diagnosis: Pain in left knee[ICD10: M25.562] Diagnosis: Pain in right knee[ICD10: M25.561] Diagnosis: Essential (primary) hypertension[ICD10: I10] Aicha Thompson MD, [facility] CPT-4: 63239 09/06/2017 ([id number]) 71497 EST. PATIENT, LEVEL IV Diagnosis: Headache[ICD10: R51] Diagnosis: Chronic pain syndrome[ICD10: G89.4] Diagnosis: Mixed hyperlipidemia[ICD10: E78.2] Diagnosis: Vitamin D deficiency, unspecified[ICD10: E55.9] Diagnosis: Vitamin B12 deficiency anemia, unspecified[ICD10: D51.9] Valentina Thompson MD , [facility] CPT-4: 53415 08/19/2017 71276 EST. PATIENT, LEVEL V Diagnosis: Essential (primary) hypertension[ICD10: I10] Diagnosis: Vitamin B12 deficiency anemia due to intrinsic factor deficiency[ ICD10: D51.0] Diagnosis: Chronic pain syndrome[ICD10: G89.4] Aicha Thompson MD, [facility] CPT-4: 27041 07/06/2017 ([id number]) 99325 EST. PATIENT, LEVEL IV Diagnosis: Cervicalgia[ICD10: M54.2] Diagnosis: Laceration without foreign body of scalp, initial encounter[ICD10: S01.01XA] Diagnosis: Vitamin B12 deficiency anemia due to intrinsic factor deficiency[ ICD10: D51.0] Valentina Thompson MD, [facility] CPT-4: 44026 04/27/2017 45120 EST. PATIENT, LEVEL II Diagnosis: Residual hemorrhoidal skin tags[ICD10: K64.4] Valentina Thompson MD, [facility] CPT-4: 09012 04/06/2017 ([id number]) 71934 EST. PATIENT, LEVEL III Diagnosis: Pain in right foot[ICD10: M79.671] Diagnosis: Pain in left foot[ICD10: M79.672] Diagnosis: Cervicalgia[ICD10: M54.2] Valentina Thompson MD, [facility] CPT-4: 74147 02/25/2017 ([id number]) 65552 EST. PATIENT, LEVEL IV Diagnosis: Essential (primary) hypertension[ICD10: I10] Diagnosis: Chronic pain syndrome[ICD10: G89.4] Diagnosis: Spinal stenosis, cervical region[ICD10: M48.02] Diagnosis: Pain in right leg[ICD10: M79.604] Valentina Thompson MD, [facility] CPT-4: 18690 01/19/2017 ([id number]) 98993 EST. PATIENT, LEVEL III Diagnosis: Pain in right foot[ICD10: M79.671] Diagnosis: Pain in left foot[ICD10: M79.672] Diagnosis: Chronic pain syndrome[ICD10: G89.4] Diagnosis: Vitamin B12 deficiency anemia, unspecified[ICD10: D51.9] Valentina Thompson MD , [facility] CPT-4: 61358 11/17/2016 ([id number]) 74049 EST. PATIENT, LEVEL IV Diagnosis: Essential (primary) hypertension[ICD10: I10] Diagnosis: Chronic pain syndrome[ICD10: G89.4] Diagnosis: Foot drop, right foot[ICD10: M21.371] Diagnosis: Foot drop, left foot[ICD10: M21.372] Diagnosis: Other abnormalities of gait and mobility[ICD10: R26.89] Diagnosis: Vitamin B12 deficiency anemia due to intrinsic factor deficiency[ ICD10: D51.0] Aicha Thompson MD, [facility] CPT-4: 98363 10/12/2016 ([id number]) 21559 EST. PATIENT, LEVEL III Diagnosis: Pain in right ankle and joints of right foot[ICD10: M25.571] Diagnosis: Superficial foreign body, right foot, initial encounter[ICD10: S90.851A] Valentina Thompson MD, [facility] CPT-4: 87779 ([id number]) 88209 EST. PATIENT, LEVEL III Diagnosis: Candidiasis of vulva and vagina[ICD10: B37.3] Diagnosis: Vitamin B12 deficiency anemia, unspecified[ICD10: D51.9] Valentina Thompson MD , [facility] CPT-4: 17234 08/07/2016 ([id number]) 82889 EST. PATIENT, LEVEL III Diagnosis: Spinal stenosis, cervical region[ICD10: M48.02] Diagnosis: Pain in right ankle and joints of right foot[ICD10: M25.571] Diagnosis: Pain in left ankle and joints of left foot[ICD10: M25.572] Valentina Thompson MD, [facility] CPT-4: 81591 07/31/2016 31129 EST. PATIENT, LEVEL III Diagnosis: Cervicalgia[ICD10: M54.2] Diagnosis: Chronic pain syndrome[ICD10: G89.4] Beatriz Thompson MD, [facility] CPT-4: 00072 07/15/2016 ([id number]) 83680 EST. PATIENT, LEVEL III Diagnosis: Spinal stenosis, cervical region[ICD10: M48.02] Diagnosis: Low back pain[ICD10: M54.5] Valentina Thompson MD, [facility] CPT-4: 08781 07/07/2016 ([id number]) 81388 EST. PATIENT, LEVEL IV Diagnosis: Cervicalgia[ICD10: M54.2] Diagnosis: Essential (primary) hypertension[ICD10: I10] Diagnosis: Mixed hyperlipidemia[ICD10: E78.2] Aicha Thompson MD, [facility] CPT-4: 96637 06/25/2016 ([id number]) 00214 EST. PATIENT, LEVEL III Diagnosis: Cervicalgia[ICD10: M54.2] Valentina Thompson MD, [facility] CPT-4: 74255 05/07/2016 ([id number]) 99511 EST. PATIENT, LEVEL III Diagnosis: Pleurodynia[ICD10: R07.81] Diagnosis: Generalized anxiety disorder[ICD10: F41.1] Diagnosis: Vitamin B12 deficiency anemia due to intrinsic factor deficiency[ ICD10: D51.0] Diagnosis: Hypoxemia[ICD10: R09.02] Valentina Thompson MD, [facility] CPT-4: 71777 04/20/2016 ([id number]) 53407 EST. PATIENT, LEVEL III Diagnosis: Generalized anxiety disorder[ICD10: F41.1] Diagnosis: Radiculopathy, lumbar region[ICD10: M54.16] Valentina Thompson MD, [facility] CPT-4: 02877 03/17/2016 29842 EST. PATIENT, LEVEL IV Diagnosis: Chronic pain syndrome[ICD10: G89.4] Diagnosis: Radiculopathy, lumbar region[ICD10: M54.16] Diagnosis: Generalized anxiety disorder[ICD10: F41.1] Beatriz Thompson MD, [facility] CPT-4: 72431 03/05/2016 ([id number]) 28552 EST. PATIENT, LEVEL III Diagnosis: Radiculopathy, lumbar region[ICD10: M54.16] Diagnosis: Generalized anxiety disorder[ICD10: F41.1] Valentina Thompson MD, [facility] CPT-4: 50797 02/28/2016 ([id number]) 41475 EST. 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 PATIENT, LEVEL III Diagnosis: Headache[ICD10: R51] Diagnosis: Cervicalgia[ICD10: M54.2] Valentina Thompson MD, [facility] CPT-4: 59304 08/15/2015 ([id number]) 00525 EST. PATIENT, LEVEL III Diagnosis: Generalized anxiety disorder[ICD10: F41.1] Diagnosis: Cervicalgia[ICD10: M54.2] Valentina Thompson MD, [facility] CPT-4: 99554 07/25/2015 ([id number]) 92652 EST. PATIENT, LEVEL IV Diagnosis: Pain in right foot[ICD10: M79.671] Diagnosis: Unspecified osteoarthritis, unspecified site[ICD10: M19.90] Diagnosis: Pain in left ankle and joints of left foot[ICD10: M25.572] Diagnosis: Pain in right ankle and joints of right foot[ICD10: M25.571] Valentina Thompson MD, [facility] CPT-4: 86782 06/25/2015 [id number]) 47540 EST. 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 PATIENT, LEVEL IV Diagnosis: Essential (primary) hypertension[ICD10: I10] Diagnosis: Pain in right foot[ICD10: M79.671] Diagnosis: Pain in left foot[ICD10: M79.672] Diagnosis: Anxiety disorder, unspecified[ICD10: F41.9] Aicha Thompson MD, [facility] CPT-4: 87057 05/08/2015 ([id number]) 30403 EST. PATIENT, LEVEL III Diagnosis: Generalized anxiety disorder[ICD10: F41.1] Diagnosis: Essential (primary) hypertension[ICD10: I10] Diagnosis: Other myositis, multiple sites[ICD10: M60.89] Valentina Thompson MD, [facility] CPT-4: 30857 03/26/2015 89448 EST. PATIENT, LEVEL III Diagnosis: Chronic pain syndrome[ICD10: G89.4] Diagnosis: Unspecified osteoarthritis, unspecified site[ICD10: M19.90] Diagnosis: Pain in right foot[ICD10: M79.671] Diagnosis: Pain in left foot[ICD10: M79.672] Beatriz Thompson MD, [facility] CPT -4: 04477 03/15/2015 ([id number]) 96432 EST. PATIENT, LEVEL III Diagnosis: Abrasion of knee, left[ICD9: 916.0] Valentina Thompson MD, [facility] CPT-4: 24109 01/10/2015 ([id number]) 95175 EST. PATIENT, LEVEL IV Diagnosis: CHRONIC PAIN SYNDROME[ICD9: 338.4] Diagnosis: MYALGIA AND MYOSITIS[ICD9: 729.1] Diagnosis: OSTEOARTH NOS-UNSPEC[ICD9: 715.90] Diagnosis: DEPRESSIVE DISORDER NEC[ICD9: 311] Diagnosis: GENERALIZED ANXIETY DISEASE[ICD9: 300.02] Valentina Thompson MD, [facility] CPT-4: 28560 12/21/2014 ([id number]) 07610 EST. PATIENT, LEVEL IV Diagnosis: GENERALIZED ANXIETY DISEASE[ICD9: 300.02] Diagnosis: DEPRESSIVE DISORDER NEC[ICD9: 311] Diagnosis: ESSENTIAL HYPERTENSION[ICD9: 401.9] Valentina Thompson MD, [facility] CPT-4: 83257 10/05/2014 ([id number]) 52858 EST. PATIENT, LEVEL III Diagnosis: Knee pain, right[ICD9: 719.46] Diagnosis: CHRONIC PAIN SYNDROME[ICD9: 338.4] Diagnosis: Ankle pain[ICD9: 719.47] Aicha Thompson MD, [facility] CPT-4: 13197 06/14/2014 ([id number]) 12665 EST. PATIENT, LEVEL III Diagnosis: Constipation[ICD9: 564.00] Diagnosis: Hemorrhoids[ICD9: 455.6] Valentina Thompson MD, [facility] CPT-4: 40091 01/19/2014 ([id number]) 81960 EST. PATIENT, LEVEL III Diagnosis: Ulcer of knee[ICD9: 707.19] Diagnosis: Hemorrhoids[ICD9: 455.6] Diagnosis: B12 deficiency[ICD9: 266.2] Diagnosis: ALLERGIC RHINITIS[ICD9: 477.9] Valentina Thompson MD, [facility] CPT-4: 93062 01/15/2014 ([id number]) 51557 EST. PATIENT, LEVEL IV Diagnosis: EDEMA[ICD9: 782.3] Diagnosis: Open wound of knee[ICD9: 891.0] Diagnosis: CHRONIC PAIN SYNDROME[ICD9: 338.4] Diagnosis: ANEMIA[ICD9: 285.9] Valentina Thompson MD, [facility] CPT-4: 06920 10/20/2013 ([id number]) 21766 EST. PATIENT, LEVEL III Diagnosis: ULCER OTH PART LOW LIMB[ICD9: 707.19] Valentina Thompson MD, [facility] CPT-4: 10233 07/24/2013 ([id number]) 14140 EST. PATIENT, LEVEL III Diagnosis: ULCER OTH PART LOW LIMB[ICD9: 707.19] Valentina Thompson MD [facility] CPT-4: 57245 06/23/2013 ([id number]) 98957 EST. PATIENT, LEVEL III Diagnosis: ULCER OTH PART LOW LIMB[ICD9: 707.19] Valentina Thompson MD [facility] CPT-4: 15669 06/12/2013 ([id number]) Miscellaneous no charge Diagnosis: ULCER OTH PART LOW LIMB[ICD9: 707.19] Valentina Thompson MD [facility] CPT-4: 77902 05/29/2013 ([id number]) 79728 EST. PATIENT, LEVEL III Diagnosis: ULCER OTH PART LOW LIMB[ICD9: 707.19] Valentina Thompson MD [facility] CPT-4: 47425 05/23/2013 ([id number]) Miscellaneous no charge Diagnosis: ULCER OTH PART LOW LIMB[ICD9: 707.19] Valentina Thompson MD [facility] CPT-4: 38576 05/19/2013 ([id number]) 25404 EST. PATIENT, LEVEL III Diagnosis: Ulcer of knee[ICD9: 707.19] Valentina Thompson MD [facility] CPT-4: 36174 05/16/2013 ([id number]) 17096 EST. PATIENT, LEVEL III Diagnosis: ALLERGIC RHINITIS[ICD9: 477.9] Aicha Thompson MD [facility] CPT- 4: 29797 03/06/2013 ([id number]) 11170 EST. PATIENT, LEVEL IV Diagnosis: Ankle pain[ICD9: 719.47] Diagnosis: ALLERGIC RHINITIS[ICD9: 477.9] Diagnosis: ESSENTIAL HYPERTENSION[SNOMED: 23047127] Aicha Thompson MD [facility] CPT-4: 95480 12/26/2012 ([id number]) 75243 EST. PATIENT, LEVEL IV Diagnosis: ESSENTIAL HYPERTENSION[SNOMED: 04355411] Diagnosis: JOINT PAIN-L/LEG[ICD9: 719.46] Diagnosis: GENERALIZED ANXIETY DISEASE[ICD9: 300.02] Diagnosis: UNSPECIFIED ASTHMA[ICD9: 493.90] Aciha Thompson MD, [facility] CPT-4: 22170 11/21/2012 ([id number]) Miscellaneous no charge Diagnosis: Encounter for tuberculin skin test[ICD9: V74.1] Aicha Thompson MD [facility] CPT-4: 87616 09/28/2012 ([id number]) 21244 EST. PATIENT, LEVEL IV Diagnosis: FEVER NOS[ICD9: 780.60] Diagnosis: PNEUMONIA (CAP)[ICD9: 486] Aicha Thompson MD, [facility] CPT- 4: 27509 07/21/2012 ([id number]) 45672 EST. PATIENT, LEVEL IV Diagnosis: JOINT PAIN-ANKLE[ICD9: 719.47] Diagnosis: MUSCLE/LIGAMENT DIS NEC[ICD9: 728.89] Diagnosis: Fibromyalgia muscle pain[ICD9: 729.1] Aicha Thompson MD, [facility] CPT-4: 16786 07/13/2012 ([id number]) 18225 EST. PATIENT, LEVEL IV Diagnosis: Right foot pain[ICD9: 729.5] Diagnosis: Plantar fasciitis[ICD9: 728.71] Diagnosis: GENERALIZED ANXIETY DISEASE[ICD9: 300.02] Diagnosis: B-COMPLEX DEFIC NEC[ICD9: 266.2] Aicha Thompson MD, [facility] CPT-4: 44691 05/26/2012 ([id number]) 45962 EST. PATIENT, LEVEL IV Diagnosis: Chest wall pain[ICD9: 786.52] Diagnosis: Esophageal reflux[ICD9: 530.81] Diagnosis: ALLERGIC RHINITIS[ICD9: 477.9] Valentina Thompson MD, [facility] CPT-4: 51356 02/15/2012 ([id number]) 16879 EST. PATIENT, LEVEL IV Diagnosis: ALLERGIC RHINITIS[ICD9: 477.9] Diagnosis: HYPERLIPIDEMIA[ICD9: 272.4] Aicha Thompson MD, [facility] CPT- 4: 99894 01/13/2012 ([id number]) 02088 EST. PATIENT, LEVEL IV Diagnosis: JOINT PAIN-L/LEG[ICD9: 719.46] Diagnosis: UNSPECIFIED ASTHMA[ICD9: 493.90] Diagnosis: Costalchondritis[ICD9: 733.6] Aicha Thompson MD, [facility] CPT- 4: 42123 12/21/2011 ([id number]) [id number] EST. PATIENT, LEVEL IV Diagnosis: Hyperlipidemia[ICD9: 272.4] Diagnosis: ALLERGIC RHINITIS[ICD9: 477.9] Diagnosis: B12 deficiency[ICD9: 266.2] Diagnosis: Hypopotassemia[ICD9: 276.8] Valentina Thompson MD, [facility] CPT-4: 56944 10/02/2011 ([id number]) [id number] EST. PATIENT, LEVEL IV Diagnosis: Pain in joint involving forearm[ICD9: 719.43] Diagnosis: Neck pain[ICD9: 723.1] Diagnosis: Fall on same level from slipping, tripping, or stumbling[ICD9: E885.9 ] Diagnosis: B12 deficiency[ICD9: 266.2] Aicha Thompson MD, [facility] CPT- 4: 30121 09/01/2011 ([id number]) [id number] EST. PATIENT, LEVEL IV Diagnosis: Vulvovaginitis[ICD9: 616.10] Diagnosis: OVERWEIGHT[ICD9: 278.02] Diagnosis: MYALGIA AND MYOSITIS[ICD9: 729.1] Aicha Thompson MD, [facility] CPT-4: 01433 08/03/2011 ([id number]) 71753 EST. PATIENT, LEVEL IV Diagnosis: MUSCLE/LIGAMENT DIS NEC[ICD9: 728.89] Diagnosis: CHRONIC PAIN SYNDROME[ICD9: 338.4] Diagnosis: Weight gain[ICD9: 783.1] Aicha Thompson MD, [facility] CPT-4: 83678 06/29/2011 37886 EST. PATIENT, LEVEL IV Diagnosis: Wrist pain[ICD9: 719.43] Diagnosis: Knee pain, right[ICD9: 719.46] Diagnosis: Fall on same level from slipping, tripping, or stumbling[ICD9: E885.9 ] Aicha Thompson MD, [facility] CPT-4: 67237 06/22/2011 14042 EST. PATIENT, LEVEL IV Diagnosis: MUSCLE/LIGAMENT DIS NEC[ICD9: 728.89] Diagnosis: JOINT PAIN-L/LEG[ICD9: 719.46] Diagnosis: OSTEOARTH NOS-UNSPEC[ICD9: 715.90] Diagnosis: B12 deficiency[ICD9: 266.2] Aicha Thompson MD, [facility] CPT- 4: 30500 06/11/2011 07083 EST. 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 PATIENT, LEVEL IV Diagnosis: Knee pain, bilateral[ICD9: 719.46] Diagnosis: Iliotibial band syndrome[ICD9: 728.89] Diagnosis: Fibromyalgia syndrome[ICD9: 729.1] Aicha Thompson MD, [facility] CPT-4: 08012 02/12/2011 98428 EST. PATIENT, LEVEL IV Diagnosis: FALL FROM SLIPPING[ICD9: E885.9] Diagnosis: Pain in joint involving lower leg[ICD9: 719.46] Diagnosis: ESOPHAGEAL REFLUX[ICD9: 530.81] Diagnosis: ESSENTIAL HYPERTENSION[SNOMED: 50463633] Aicha Thompson MD, [facility] CPT-4: 35442 01/29/2011 Plan of Care Planned Activity Notes [...] psychiatrist. 06/01/2018 Appointment: Aicha Thompson WPtel: [phone] [facility] (30 min) Complex 06/01/2018 Patient Education: Patient Medication Summary Completed 06/01/2018 Patient Education: Back Pain Completed 06/01/2018 Patient Education: Hypertension Completed 06/01/2018 Patient Education: Obesity Completed 06/01/2018 [phone] (15 min) Moderate 04/18/2018 Visit Plan: [...] the hydrocodone. 04/05/2018 Appointment: Aicha Thompson WPtel: [phone] [facility] (30 min) Complex 04/05/2018 Patient Education: Patient Medication Summary Completed 04/05/2018 Appointment: Aicha Thompson WPtel: [phone] [facility] [place] (15 min) Moderate 03/17/2018 Visit Plan: [...] 2 weeks 03/10/2018 Appointment: Valentina Smith WPtel: [phone] [phone] [place] (15 min) Moderate 03/10/2018 Appointment: Aicha Thompson WPtel: [phone] [facility] [place] (15 min) Moderate 03/10/2018 Patient Education: Patient Medication Summary Completed 03/10/2018 Patient Education: Depression Completed 03/10/2018 Visit Plan: Headaches-patient is not wearing her CPAP and i suspect this may be contributing to her headaches-[facility] Neck pain -spinal stenosis - has attempted to contact patient with no response from Mary-I have instructed her to call them and get appt scheduled 01/13/2018 Appointment: Valentina Smith WPtel: [phone] [phone] [place] (15 min) Moderate 01/13/2018 Patient Education: Patient [...] current medications. 11/25/2017 Appointment: Valentina Smith WPtel: [phone] [phone] [place] (30 min) Complex 11/25/2017 Patient Education: Patient Medication Summary Completed 11/25/2017 Visit Plan: Contact dermatitis-discussed natural and expected course of this diagnosis and to alert me if symptoms do not resolve or if any worse. RX sent to patient's pharmacy and instructed on use. 10/19/2017 Appointment: Valentina Smith WPtel: [phone] [phone] [place] (15 min) Moderate 10/19/2017 Patient Education: Patient Medication Summary Completed 10/19/2017 Appointment: Valentina Smith WPtel: [phone] [phone] [place] (30 min) Complex 09/27/2017 Visit Plan: Generalized abd scpn-KTE-lkvrno cipro/flagyl- culture urine-recommend patient follow up with Dr Grace for an appt if abdominal pain does not improve Low potassium-check labs 09/17/2017 Visit Plan: Generalized abd oult-YRQ-hmqsvz cipro/flagyl- culture urine-recommend patient follow up with Dr Grace for an appt if abdominal pain does not improve Low potassium-check labs 09/17/2017 Appointment: Valentina Smith WPtel: [phone] [place] (30 min) Complex 09/17/2017 Patient Education: [...] of over-medication. 09/06/2017 Appointment: Aicha Thompson WPtel: [address] [place] [address] [place] (30 min) Complex 09/06/2017 Patient Education: Patient Medication Summary Completed 09/06/2017 Appointment: Aicha Thompson WPtel: [facility] [place] ([facility] min) Complex 09/02/2017 Appointment: Aicha Thompson WPtel: [address] [place] [address] [place] (30 min) Complex 08/23/2017 Visit Plan: Headaches-neck pain-patient is to let us know which neurologist she wants to see B12 def-injection today in the office Hyperlipidemia-check labs Vitamin D def-check level 08/19/2017 Appointment: Valentina Smith WPtel: [phone] [place] (30 min) Complex 08/19/2017 Patient Education: [...] the list of the neurologists that her viscose cellar worker has recommended and we would consider a [...] the list of the neurologists that her viscose cellar worker has recommended and we would consider a [...] the psychiatrist. 07/06/2017 Appointment: Aicha Thompson WPtel: [facility] (30 min) Complex 07/06/2017 Patient Education: Patient Medication Summary Completed 07/06/2017 Appointment: Aicha Thompson WPtel: [facility] (30 min) Complex 07/05/2017 Appointment: Valentina Smith WPtel: [phone] [place] (30 min) Complex 05/17/2017 Appointment: Beatriz Mojica WPtel: [facility] (30 min) Complex 05/14/2017 Visit Plan: Neck ynej-iyrfran-jqflver to continue f/u with [facility]-her symptoms have [...] of plan. 04/27/2017 Appointment: Valentina Smith WPtel: [address] [place], [place] [phone] (30 min) Complex 04/27/2017 Patient Education: Patient Medication Summary Completed 04/27/2017 Patient Education: Obesity Completed 04/27/2017 Visit Plan: Hemorrhoidal skin tag-no acute inflammation today -may use hemorrhoid cream as directed as needed-call with any concerns, bleeding, etc. 04/06/2017 Appointment: Valentina Smith WPtel: [address] [place], [place] [phone] (30 min) Complex 04/06/2017 Patient Education: Patient Medication Summary Completed 04/06/2017 Patient Education: Obesity Completed 04/06/2017 Visit Plan: Bilateral foot and ankle pain-now has AFOs-we have made her several appt with podiatrists which she has not kept-recommend patient call Dr Saunders and reschedule appt with him. Neck pain-[facility] appt next week-KEEP APPOINTMENT! 02/25/2017 Appointment: Valentina Smith WPtel: [phone] (30 min) Complex 02/25/2017 Patient Education: [...] podiatry for evaluation-wants to see someone in [place] 11/17/2016 Appointment: Valentina Smith WPtel: [phone] (30 min) Complex 11/17/2016 Patient Education: Patient Medication Summary Completed 11/17/2016 Appointment: Valentina Smith WPtel: [phone] (30 min) Complex 11/16/2016 Visit Plan: [place] referral - pt to indicate when and who she would like to go to - for neck and back AFO for both legs - [facility] in [place], [place]- fax #[phone] pt has been seen by drug regulatory affairs specialist - need brace because of bilateral [...] over- medication. 10/12/2016 Appointment: Aicha Thompson WPtel: [facility] (30 min) Complex 10/12/2016 Patient Education: Patient Medication Summary Completed 10/12/2016 Patient Education: Obesity Completed 10/12/2016 Appointment: Injection 09/11/2016 Patient Education: Patient Medication Summary Completed 09/11/2016 Visit Plan: Right ankle pain/instability-xray negative- will obtain MRI ankle Ulcer right foot-instructed patient on wound care and the importance of keeping wound clean-f/u in 10-14 days for re-evaluation 08/18/2016 Appointment: Valentina Smith WPtel: [phone] [place] (30 min) Complex 08/18/2016 Patient Education: Patient Medication Summary Completed 08/18/2016 Patient Education: Obesity Completed 08/18/2016 Care Plan: X-RAY EXAM NECK SPINE 2-3 VW LOINC : 02394-4 Pending 08/15/2016 Visit Plan: Vaginal yeast infection-RX for diflucan B12 deficiency-check labs 08/07/2016 Appointment: Valentina Smith WPtel: [phone] [place] (30 min) Complex 08/07/2016 Patient Education: Patient Medication Summary Completed 08/07/2016 Visit Plan: Cervical stenosis-saw Dr Ramey-Dr Ramey is going to send her to for further evaluation Bilateral ankle pain-xray ankles 07/31/2016 Appointment: Valentina Smith WPtel: [phone] [place] (30 min) Complex 07/31/2016 Patient Education: Patient Medication Summary Completed 07/31/2016 Patient Education: Obesity Completed 07/31/2016 Visit Plan: Neck pain after fall - Will check x-ray, Pt is to follow up with Dr. Perez. Pt is to notify clinic if symptoms do not improve , if they worsen, or with any questions or concerns. 07/15/2016 Appointment: Beatriz Mojica WPtel: [facility] [place] (30 min) Complex 07/15/2016 Patient Education: [...] Appointment: Injection 07/03/2016 Appointment: Valentina Smith WPtel: [phone] (30 min) Complex 07/03/2016 Patient Education: Patient [...] despite PT. 05/07/2016 Appointment: Valentina Smith WPtel: [phone] (30 min) Complex 05/07/2016 Patient Education: Patient Medication Summary Completed 05/07/2016 Patient Education: Obesity Completed 05/07/2016 Care Plan: MRI NECK SPINE W/O [facility] : 47806-3 Pending 05/07/2016 Visit Plan: Chronic Depression and [...] monitor symptoms 04/20/2016 Appointment: Valentina Smith WPtel: [phone] (30 min) Complex 04/20/2016 Patient Education: Patient Medication Summary Completed 04/20/2016 Appointment: Valentina Smith WPtel: [phone] (30 min) Complex 03/19/2016 Visit Plan: [...] Dr Ibarra 03/17/2016 Appointment: Valentina Smith WPtel: [phone] (30 min) Complex 03/17/2016 Patient Education: Patient [...] current medications. 02/28/2016 Appointment: Valentina Smith WPtel: [facility] [address] (15 min) Moderate 02/28/2016 Patient Education: Patient Medication Summary Completed 02/28/2016 Appointment: Valentina Smith WPtel: [address] [place], [place] [phone] (30 min) Complex 02/27/2016 Visit Plan: Hypertension [...] d level 02/13/2016 Appointment: Valentina Smith WPtel: [phone] (30 min) Complex 02/13/2016 Patient Education: [...] Completed 02/03/2016 Care Plan: SCREENINGMAMMOGRAPHYDIGITAL LOINC : 11920-7 Pending 02/03/2016 Appointment: Injection 01/15/2016 Appointment: Lab [...] EXAM NECK SPINE 2-3 VW LOINC : 01468-0 Ordered 08/15/2015 Visit Plan: Anxiety-fairly well controlled-does [...] and ankle instability/pain. Refer patient to [facility] for aqua therapy. Patient verbalized understanding of [...] side effects. 05/08/2015 Appointment: Aicha Thompson WPtel: [address] [place] [address] (30 min) Complex 05/08/2015 Patient Education: Patient [...] Care Plan: COMPLETE CBC AUTOMATED LOINC : 02628-1 Ordered 10/05/2014 Visit Plan: Chronic Pain Syndrome - pt has chronic pain - has been maintained on current medications, has not sought out other medications , only uses PRN pain medications as directed, and understands the consequences of over-medication. Right hip/knee/ankle pain-improving since last fall- continue physical therapy exercises-continue supportive shoes and use walker for stability 06/14/2014 Appointment: Valentina Smith WPtel: [phone] [phone] [place] Follow up 06/14/2014 Patient Education: Patient [...] the instructions given to her from her breaker mechanic and she is to call him if her constipation is uncontrolled. Hemorrhoids-use suppositories as directed. 01/19/2014 Patient Education: Patient Medication Summary Completed 01/19/2014 Visit Plan: Ulcer of peda-uayrppv-ojmcj instructions provided today and instructed patient to return as directed-keep wound clean and dry. Hemorrhoids-refill anusol suppositories and use as directed B12 deficiency-b12 injection today in the office Fsypttcus-axitkdtlcdar-jrrdneb injection today in the office-continue oral medications [...] Anemia-check labs 10/20/2013 Appointment: Valentina Smith WPtel: [phone] [place] Other 10/20/2013 Patient Education: Patient Medication Summary Completed 10/20/2013 Appointment: Valentina Smith WPtel: [phone] [place] Injection 08/21/2013 Appointment: Aicha Thompson WPtel: [facility] [place] Follow up 07/31/2013 Visit Plan: Ulcer of knee healing-silver nitrate to granulation tissue-instructed patient to monitor and call if it does not completely heal for appointment-instructed on wound care-patient and mother verbalized understanding of plan. 07/24/2013 Patient Education: Patient Medication Summary Completed 07/24/2013 Patient Education: Patient Medication Summary Completed 07/24/2013 Appointment: Valentina Smith WPtel: [phone] Follow up 07/03/2013 Visit Plan: Ulcer-left knee-fibrous tissue removed from wound bed to reveal pink granulation tissue-wound cleansed and dressing applied. Instructed patient on wound care. Return in 10 days for follow up. 06/23/2013 Appointment: Valentina Smith WPtel: [address] [place], [place] [phone] Follow up 06/23/2013 Patient Education: Patient Medication Summary Completed 06/23/2013 Appointment: Valentina Smith WPtel: [address] [place], [place] [phone] Follow up 06/22/2013 Appointment: Aicha Thompson WPtel: [address] [place], [place] [phone] Follow up 06/22/2013 Visit Plan: Ulcer-left knee-fibrous tissue removed from wound bed to reveal pink granulation tissue-wound cleansed and dressing applied. Instructed patient on wound care. Return in 10 days for follow up. 06/12/2013 Appointment: Valentina Smith WPtel: [address] [place], [place] [phone] [place] Follow up 06/12/2013 Patient Education: Patient Medication Summary Completed 06/12/2013 Appointment: Aicha Thompson WPtel: [address] [place], [place] [phone] [place] Follow up 06/08/2013 Visit Plan: Ulcer left rsrk-ulsxwkfq-n/u in 10 days 05/29/2013 Appointment: Valentina Smith WPtel: [address] [place], [place] [phone] Follow up 05/29/2013 Patient Education: Patient Medication Summary Completed 05/29/2013 Visit Plan: Ulcer of knee-sharp debridement today in the office--wound care instructions provided for patient-patient and mother verbalized understanding of plan. Follow up next week. 05/23/2013 Appointment: Valentina Smith WPtel: [address] [place], [place] [phone] [place] [address] Follow up 05/23/2013 Patient Education: Patient Medication Summary Completed 05/23/2013 Appointment: Valentina Smith WPtel: [address] [place], [place] [phone] [place] [address] Follow up 05/22/2013 Visit Plan: Ulcer of knee-wound care instructions provided for patient-patient and mother verbalized understanding of plan. 05/19/2013 Appointment: Valentina Smith WPtel: [address] [place], [place] [phone] [place] [address] 05/19/2013 Patient Education: Patient Medication Summary Completed 05/19/2013 Visit Plan: Ulcer of knee-fibrous tissue debrided today in the office--wound care instructions provided for patient-return in 1 week for follow up. 05/16/2013 Appointment: Valentina Smith WPtel: [address] [place] [address] follow up 05/16/2013 Patient Education: Patient Medication Summary Completed 05/16/2013 Appointment: Aicha Thompson WPtel: [address] [place], [place] [phone] Injection 05/10/2013 Patient Education: Patient Medication Summary [...] the office. 03/06/2013 Appointment: Valentina Smith WPtel: [address] [place], [place] [phone] Other 03/06/2013 Patient Education: Patient Medication Summary Completed 03/06/2013 Appointment: Aicha Thompson WPtel: [facility] Nurse Visit 02/20/2013 Patient Education: Patient Medication Summary Completed 02/20/2013 Appointment: Aicha Thompson WPtel: [facility] Follow up 01/16/2013 Visit Plan: Joint pain [...] acute concerns. 12/26/2012 Appointment: Aicha Thompson WPtel: [facility] Other 12/26/2012 Patient Education: Patient Medication Summary Completed 12/26/2012 Patient Education: Hypertension Completed 12/26/2012 Appointment: [facility]: [phone] [place] Lab Draw 12/21/2012 Patient Education: Patient [...] acute changes 11/21/2012 Appointment: Aicha Thompson WPtel: [address] [place] [address] [place] Follow up 11/21/2012 Patient Education: Patient Medication Summary Completed 11/21/2012 Patient Education: Hypertension Completed 11/21/2012 Appointment: Aicha Thompson WPtel: [address] [place] [address] [place] Injection 11/16/2012 Patient Education: Patient Medication Summary Completed 11/16/2012 Appointment: Aicha Thompson WPtel: [facility] [place] Injection 09/28/2012 Patient Education: Patient Medication Summary Completed 09/28/2012 Appointment: Aicha Thompson WPtel: [address] [place] [address] [place] Injection 09/26/2012 Patient Education: Patient Medication Summary Completed 09/26/2012 Appointment: Aicha Thompson WPtel: [address] [place] [address] [place] Injection 09/12/2012 Patient Education: Patient Medication Summary Completed 09/12/2012 Appointment: Aicha Thompson WPtel: [address] [place] [address] [place] Injection 08/11/2012 Patient Education: Patient Medication [...] management sparingly. 07/13/2012 Appointment: Aicha Thompson WPtel: [facility] Other 07/13/2012 Patient Education: Patient Medication Summary [...] in medications 05/26/2012 Appointment: Valentina Smith WPtel: [phone] [phone] Other 05/26/2012 Patient Education: Patient Medication Summary Completed 05/26/2012 Appointment: Valentina Smith WPtel: [phone] Sick 03/15/2012 Appointment: Aicha Thompson WPtel: [phone] [facility] Injection 03/02/2012 Patient Education: Patient Medication Summary [...] the medication. 02/15/2012 Appointment: Valentina Smith WPtel: [facility] [place] [address] Other 02/15/2012 Patient Education: Patient Medication Summary [...] normal liver response to medications 01/13/2012 Appointment: Valnetina Smith WPtel: [phone] [phone] Other 01/13/2012 Patient Education: Patient Medication Summary Completed 01/13/2012 Appointment: Valentina Smith WPtel: [phone] [place] [address] Other 01/06/2012 Visit Plan: Asthma - chest xray and symbicort sample today. Patellofemoral syndrome- recommended physical therapy. Costochondritis - recommended pt to use antiinflammatories as able for treatment of rib/sternum irritation and for pt to call if her symptoms do not improve. 12/21/2011 Appointment: Aicha Thompson WPtel: [facility] Other 12/21/2011 Patient Education: Patient Medication Summary [...] the office. 10/02/2011 Appointment: Valentina Smith WPtel: [address] [place], [place] [phone] Other 10/02/2011 Patient Education: Patient Medication Summary Completed 10/02/2011 Visit Plan: Pain in joints-arms, elbows-recent fall- discussed natural and expected course of this diagnosis and to alert me if symptoms do not follow expected course, or if any worse. Patient verbalized understanding. Neck cqno-fqmaplw-tjzwyeupo physical therapy-patient declined at this time-going to see the dope house operator helper this afternoon. B12 deficiency-B12 injection today in the office. 09/01/2011 Appointment: [phone] [place] Other 09/01/2011 Patient Education: Patient Medication [...] management sparingly. 08/03/2011 Appointment: Aicha Thompson WPtel: [facility] Follow up 08/03/2011 Patient Education: Patient Medication [...] HER PAIN. 06/29/2011 Appointment: Aicha Thompson WPtel: [facility] [place] Follow up 06/29/2011 Patient Education: Patient Medication Summary Completed 06/29/2011 Appointment: Aicha Thompson WPtel: [facility] [place] Other 06/24/2011 Visit Plan: Right knee pain, bilateral wrist pain-recent fall-discussed natural and expected course of this diagnosis and to alert me if symptoms do not follow expected course, or if any worse. Patient verbalized understanding. Recommend follow up with Ortho physician if pain persists. 06/22/2011 Appointment: Valentina Smith WPtel: 101 [phone] [place] Other 06/22/2011 Patient Education: Patient Medication Summary Completed 06/22/2011 Visit Plan: Knee and Ankle pain and instability- recommend re-evaluation by an rating specialist at [facility] of the [address] [place] [address]. Pt has been recommended to go back to Dr. Corbin at [facility] of the [address] [place] [address] as my office did not get a [...] of fibromyalgia. 06/11/2011 Appointment: [facility] Thompson [facility] [place] In[facility] 06/11/2011 Appointment: Aicha Thompson WPtel: [phone] [facility] [place] Other 06/11/2011 Patient Education: Patient Medication Summary Completed 06/11/2011 Visit Plan: Knee and Ankle pain and instability- recommend evaluation by an rating specialist at [facility] [place]. The pt has [...] physical appearance. 03/11/2011 Appointment: Aicha Thompson WPtel: [facility] Other 03/11/2011 Patient Education: Patient Medication Summary Completed 03/11/2011 Patient Education: .Amazing charts Diabetic meal planning guide Completed 03/11 Appointment: Aicha Thompson WPtel: [phone] [facility] [place] Injection 02/23/2011 Patient Education: Patient Medication Summary Completed 02/23/2011 Visit Plan: iliotibial band syndrome - continue with current treatment per dope house operator helper. I have recommend use of biofreeze to the right outer leg. I have given pt stretching exercises for home. Fibromyalgia - chronic - continue with exercise, heat, and prn pain medication. Knee pain - apparently resolved prior to her appointment today. No change in present management, call if pain returns. 02/12/2011 Appointment: Aicha Thompson WPtel: [phone] [facility] [place] Other 02/12/2011 Patient Education: Patient Medication Summary [...] Medication Summary Completed 01/29/2011 Instructions Comment . Headaches-neck pain-patient is to let us know which neurologist she wants to see B12 def-injection today in the office Hyperlipidemia-check labs Vitamin D def-check level Dr Saunders -[facility] . Bilateral foot and ankle pain-now has AFOs-we have made her several appt with podiatrists which she has not kept-recommend patient call Dr Saunders and reschedule appt with him. Neck pain-KU appt next week-KEEP APPOINTMENT! sleep study -[facility] . Headaches-patient is not wearing her CPAP and i suspect this may be contributing to her headaches-will contact [facility] for a new sleep study Neck pain -spinal stenosis -[facility] has attempted to contact patient with no response from [facility]-I have instructed her to call them and get appt scheduled . Neck pain-plan to xray cervical spine-refer [...] shoes and use walker for stability . Overweight - chronic issue with this [...] to keep appts with her psychiatrist. . [place] referral - pt to indicate when and who she would like to go to - for neck and back AFO for both legs - [facility] in [place], [place]- fax # [phone] pt has been seen by drug regulatory affairs specialist - need brace because of bilateral [...] any concerns, bleeding, etc. . Ulcer left crst-oqyuzljf-p/u in 10 days MAKE APPOINTMENT CALLY KELLY/DR IBARRA TO FOLLOW [...] change in blood pressure readings at home. Use suppositories every night for the next 3 nights . Constipation - uncontrolled - I have discussed with the patient the need for adequate fiber and water intake to facilitate soft, easily passed stools. The pt noted understanding of our conversation. I have also recommended that she continue to follow the instructions given to her from her breaker mechanic and she is to call him if her constipation is uncontrolled. Hemorrhoids-use suppositories as directed. . Anxiety-fairly well controlled-does have added stress with family-no change in medications-call if symptoms worsen Neck pain-recommend rest, ice and anti inflammatories as directed-call if symptoms do not resolve or if any worse. Patient verbalized understanding of plan. . iliotibial band syndrome - continue with current treatment per dope house operator helper. I have recommend use of biofreeze to the right outer leg. I have given pt stretching exercises for home. Fibromyalgia - chronic - continue with exercise, heat, and prn pain medication. Knee pain -apparently resolved prior to her appointment today. No change in present management, call if pain returns. . Hypertension - well controlled - continue [...] understands the consequences of over- medication. . Foot pain and SI joint pain [...] have her taper off of the hydrocodone. INCREASE HYDROCODONE TO 5 TABS/DAY-IF PAIN UNCONTROLLED, [...] will call the patient with the appt Recommend anti-inflammatories as needed for pain in [...] up with Ortho physician if pain persists. REFER TO [facility] BILATERAL FOOT AND ANKLE PAIN . Bilateral foot pain-foot drop-patient getting AFOs-refer to podiatry for evaluation-wants to see someone in [facility] [...] the list of the neurologists that her viscose cellar worker has recommended and we would consider a [...] the list of the neurologists that her viscose cellar worker has recommended and we would consider a [...] if any worse. Patient verbalized understanding. Neck vpui-loqyyun-znunwpiic physical therapy-patient declined at this time- going to see the dope house operator helper this afternoon. B12 deficiency-B12 injection today in [...] today in the office. . Ulcer of qcsc-fchxzcr-jdwah instructions provided today and instructed patient to return as directed-keep wound clean and dry. Hemorrhoids-refill anusol suppositories and use as directed B12 deficiency-b12 injection today in the office Bgphjdjxq-rbkbglbybfxc-fxhwreq injection today in the office-continue oral medications [...] pressure readings at home. . Generalized abd mocm-XBY-zvaqvx cipro/flagyl-culture urine-recommend patient follow up with Dr Grace for an appt if abdominal pain does not improve Low potassium-check labs B12 injection . Neck edtu-zogqjgz-hzxchrt to continue f/u with [facility]-her symptoms have [...] Anxiety-controlled on current regimen-no changes in medications . Knee and Ankle pain and instability- recommend re- evaluation by an rating specialist at [facility] of the [address] [place] [address]. Pt has been recommended to go back to Dr. Corbin at [facility] the [address] [place] [address] as my office did not get a [...] of the savella for treatment of fibromyalgia. . Ulcer of knee-fibrous tissue debrided today [...] directed -follow up in 2 weeks . 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 . Hypertension - well controlled [...] of plan. Follow up next week. . Generalized abd ufny-ICR-kvlary cipro/flagyl-culture urine-recommend patient follow up with Dr [...] is stable, monitor for acute changes . Cervical stenosis-saw Dr Ramey-Dr Ramey is [...] KNOW OF HER PAIN. Dr. Ramey - [facility] . Hypertension - well controlled [...] to send her to for further evaluation CHECK LABS WILL GET REPORT FROM DR [...] symptoms are not controlled with the medication. B12 INJECTION TODAY . Chronic Depression and [...] with Dr. Grace before her next infusion . Knee and Ankle pain and instability- recommend evaluation by an rating specialist at [facility]. [...] abdominal obesity versus her usual physical appearance. Check labs-cbc, cmp, tsh, lipid panel-I gave [...] to assure normal liver response to medications B12 INJECTION TODAY . Chronic Depression and [...]
[2018-08-03 07:33] LABS: BACTERIA,URINE MODERATE /HPF
--- OUTSIDE RECORDS SUMMARY | 2018-08-03 07:35 | XMS REPORT | CCD ---
Author Author [facility]a Thompson Organization [facility] Address [address] [place] [address] Phone Care Team Providers Care Digital Solution Architect Name Role Phone PP Unavailable CCM Unavailable Summary Purpose Interface Exchange Insurance Providers Payer name Policy type / Coverage type Covered libertarian ID Effective Begin Date Effective End Date WPS Medicare Part B Medicare Part B [id number] 2013 Unknown [facility] Medicare Part B [id number] 2013 Unknown Family history Grandmother Diagnosis Age [...] status Unknown 01/29/[address]: 752492503 Never smoker 01/29/[address]: 205305 Currently drinks alcohol mixed drink before bed [...] ICD-9: 281.0 ICD-10: D51.0 Active 04/19/2016 Unknown Generalized anxiety disorder ICD-9: 300.02 ICD-10: F41.1 Active 03/10/2018 Unknown Major depressive disorder, recurrent, mild ICD-9: [...] ICD-9: 724.2 ICD-10: M54.5 Active 07/07/2016 Unknown Hypoxemia ICD-9: 799.02 ICD-10: R09.02 Active [...] sleep apnea Unknown Active 05/14/2011 Unknown 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 Active 03/11/2011 Unknown Overweight (BMI [...] deficiency ICD-9: 281.0 ICD-10: D51.0 04/19/2016 Active Generalized anxiety disorder ICD-9: 300.02 ICD-10: F41.1 03/10/2018 Active Major depressive disorder, recurrent, mild ICD-9: [...] pain ICD-9: 724.2 ICD-10: M54.5 07/07/2016 Active Hypoxemia ICD-9: 799.02 ICD-10: R09.02 04/19/2016 [...] Active sleep apnea Unknown 05/14/2011 Active 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 03/11/2011 Active Overweight (BMI 25.0-29.9) [...] Fill Instructions Lipitor 20 mg tablet RxNorm: 331829 1 TABLET(S) PO DAILY 201705/12/2019 Active TAKE ONE TABLET BY MOUTH EVERY NIGHT AT BEDTIME tramadol 50 mg tablet RxNorm: 514684 1-2 Tablet(s) PO TID as needed 04/20/2018 06/18/2018 Active Valium 10 mg tablet RxNorm: 948931 1 Tablet(s) daily as needed 04/18/2018 06/16/2018 Active hydrocodone 10 mg-acetaminophen 325 mg tablet RxNorm: 131600 1 tab bid x 1 week then daily x 2 weeks then stop Tablet(s) PO Q6 for pain 04/1805/10/2018 Inactive diazepam 10 mg tablet RxNorm: 070016 1 Tablet(s) BID 04/18/2018 06/16/2018 Active Claritin-D 12 Hour 5 mg-120 mg tablet,extended release RxNorm: 1111801 Tablet(s) as needed TAKE 1 TABLET BY MOUTH TWICE DAILY NEEDED 201706/12/2018 Active tramadol 50 mg tablet RxNorm: 970588 1-2 Tablet(s) PO TID as needed 03/10/2018 04/07/2018 Inactive cyanocobalamin (vit B-12) 1,000 mcg/mL injection solution RxNorm: 853888 1 Milliliter(s) Inj 03/10/2018 03/10/2018 Inactive Seroquel 100 mg tablet RxNorm: 880204 1 TABLET(S) PO BID 201703/01/2019 Active TAKE 1 TABLET BY MOUTH TWICE DAILY hydrocodone 10 mg-acetaminophen 325 mg tablet RxNorm: 544946 1-2 Tablet(s) PO Q6 as needed for pain 02/21/2018 03/09/2018 Inactive Ventolin HFA 90 mcg/actuation aerosol inhaler RxNorm: 955374 1 OR 2 PUFF(S) INH Q6 PRN NEEDED 01/13/2018 07/11/2018 Active trazodone 100 mg tablet RxNorm: 464260 TABLET(S) TAKE 2 TABLETS BY MOUTH EVERY NIGHT AT BEDTIME 12/07/2017 09/02/2018 Active hydrocodone 10 mg-acetaminophen 325 mg tablet RxNorm: 794089 1-2 Tablet(s) PO Q6 as needed for pain 12/03/2017 12/25/2017 Inactive Ventolin HFA 90 mcg/actuation aerosol inhaler RxNorm: 095206 1 OR 2 PUFF(S) INH Q6 PRN NEEDED 11/26/2017 01/12/2018 Inactive Savella 100 mg tablet RxNorm: 023692 TABLET(S) PO TAKE 1 TABLET BY MOUTH DAILY 11/23/2017 No Stop Date Active Effexor XR 150 mg capsule,extended release RxNorm: 015742 1 CAPSULE(S) PO BID 1 CAPSULE(S) PO BID 11/23/2017 04/21/2018 Inactive TAKE 1 CAPSULE BY MOUTH TWICE DAILY Claritin-D 12 Hour 5 mg-120 mg tablet,extended release RxNorm: 0435841 Tablet(s) as needed TAKE 1 TABLET BY MOUTH TWICE DAILY NEEDED 201701/20/2018 Inactive diazepam 10 mg tablet RxNorm: 293224 Tablet(s) TAKE 1 TABLET BY MOUTH FOUR TIMES DAILY NEEDED 11/23/2017 03/09/2018 Inactive Valium 10 mg tablet RxNorm: 465597 1 Tablet(s) QID as needed 11/16/2017 01/14/2018 Inactive metoprolol tartrate 25 mg tablet RxNorm: 106762 TABLET(S) TABLET(S) 1/2 TABLET(S) PO BID TAKE 1/2 TABLET BY MOUTH TWICE DAILY 11/12/2017 No Stop Date Active pantoprazole 40 mg tablet,delayed release RxNorm: 443155 TAKE 1 TABLET BY MOUTH EVERY DAY 11/12/2017 05/10/2018 Inactive betamethasone dipropionate 0.05 % topical cream RxNorm: 235015 1 APPLICATION TOP BID 10/22/2017 11/04/2017 Inactive tramadol 50 mg tablet RxNorm: 768589 1-2 Tablet(s) PO TID as needed 10/20/2017 01/16/2018 Inactive prednisone 10 mg tablets in a dose pack RxNorm: 890237 1 Tablet(s) PO UD 10/19/2017 10/24/2017 Inactive 6-5-4-3-2-1 cyanocobalamin (vit B-12) 1,000 mcg/mL injection solution RxNorm: 220390 1 Milliliter(s) Inj 10/19/2017 10/19/2017 Inactive betamethasone dipropionate 0.05 % topical cream RxNorm: 302606 1 Application TOP BID 10/19/2017 10/21/2017 Inactive hydrocodone 10 mg-acetaminophen 325 mg tablet RxNorm: 043671 1-2 Tablet(s) PO Q6 as needed for pain 10/19/2017 11/10/2017 Inactive Effexor XR 150 mg capsule,extended release RxNorm: 347239 1 Capsule(s) PO BID 1 CAPSULE(S) PO BID 10/19/2017 11/22/2017 Inactive TAKE 1 CAPSULE BY MOUTH TWICE DAILY prednisone 5 mg tablet RxNorm: 319513 1 Tablet(s) PO UD 2017 No Stop Date Active Cipro 500 mg tablet RxNorm: 080656 1 Tablet(s) PO BID 201709/26/2017 Inactive Flagyl 500 mg tablet RxNorm: 964275 1 Tablet(s) PO TID 201709/26/2017 Inactive prednisone 10 mg tablet RxNorm: 929147 1 Tablet(s) PO UD 201709/16/2017 Inactive 2 tabs daily x 3 days 1 tab daily x 3 daily then resume usual 5mg daily hydrocodone 10 mg-acetaminophen 325 mg tablet RxNorm: 636459 1-2 Tablet(s) PO Q6 as needed for pain 09/10/2017 10/02/2017 Inactive Savella 100 mg tablet RxNorm: 230537 TABLET(S) PO TAKE 1 TABLET BY MOUTH DAILY 08/31/2017 No Stop Date Active cyanocobalamin (vit B-12) 1,000 mcg/mL injection solution RxNorm: 627895 1 Milliliter(s) Inj 08/19/2017 08/19/2017 Inactive pantoprazole 40 mg tablet,delayed release RxNorm: 810025 TAKE 1 TABLET BY MOUTH EVERY DAY 08/17/2017 11/11/2017 Inactive trazodone 100 mg tablet RxNorm: 535164 TABLET(S) TAKE 2 TABLETS BY MOUTH EVERY NIGHT AT BEDTIME 08/17/2017 12/06/2017 Inactive Ventolin HFA 90 mcg/actuation aerosol inhaler RxNorm: 385782 1 OR 2 PUFF(S) INH Q6 PRN NEEDED 08/11/2017 01/07/2018 Inactive Advair Diskus 250 mcg-50 mcg/dose powder for inhalation RxNorm: 6630260 1 Puff(s) INH BID 08/11/2017 12/08/2017 Inactive Advair Diskus 250 mcg-50 mcg/dose powder for inhalation RxNorm: 9219147 1 PUFF(S) INH BID 08/11/2017 11/08/2017 Inactive Ventolin HFA 90 mcg/actuation aerosol inhaler RxNorm: 188727 1 OR 2 PUFF(S) INH Q6 PRN NEEDED 08/11/2017 11/25/2017 Inactive hydrocodone 10 mg-acetaminophen 325 mg tablet RxNorm: 082833 1-2 Tablet(s) PO Q6 as needed for pain 08/03/2017 08/25/2017 Inactive tramadol 50 mg tablet RxNorm: 411672 1-2 Tablet(s) PO TID as needed 07/26/2017 04/19/2018 Inactive Valium 10 mg tablet RxNorm: 250110 1 Tablet(s) QID as needed 07/09/2017 09/06/2017 Inactive Effexor XR 150 mg capsule,extended release RxNorm: 951961 Capsule(s) 1 CAPSULE(S) PO BID 07/07/2017 10/18/2017 Inactive TAKE 1 CAPSULE BY MOUTH TWICE DAILY metoprolol tartrate 25 mg tablet RxNorm: 278512 Tablet(s) TABLET(S) 1/2 TABLET(S) PO BID TAKE 1/2 TABLET BY MOUTH TWICE DAILY 07/07/2017 11/11/2017 Inactive diazepam 10 mg tablet RxNorm: 780036 Tablet(s) TAKE 1 TABLET BY MOUTH FOUR TIMES DAILY NEEDED 07/07/2017 08/02/2017 Inactive cyanocobalamin (vit B-12) 1,000 mcg/mL injection solution RxNorm: 672381 1 Milliliter(s) Inj 07/06/2017 07/06/2017 Inactive tramadol 50 mg tablet RxNorm: 579885 1-2 Tablet(s) PO TID as needed 06/21/2017 09/17/2017 Inactive hydrocodone 10 mg-acetaminophen 325 mg tablet RxNorm: 001914 1-2 Tablet(s) PO Q6 as needed for pain 06/17/2017 07/09/2017 Inactive cyclobenzaprine 10 mg tablet RxNorm: 551943 TAKE 1 TABLET BY MOUTH THREE TIMES DAILY NEEDED FOR MUSCLE SPASMS 06/08/2017 08/31/2018 Active Claritin-D 12 Hour 5 mg-120 mg tablet,extended release RxNorm: 4861511 Tablet(s) as needed TAKE 1 TABLET BY MOUTH TWICE DAILY NEEDED 201709/04/2017 Inactive Lipitor 20 mg tablet RxNorm: 288462 1 TABLET(S) PO DAILY 201705/17/2018 Inactive TAKE ONE TABLET BY MOUTH EVERY NIGHT AT BEDTIME trazodone 100 mg tablet RxNorm: 966105 TABLET(S) TAKE 2 TABLETS BY MOUTH EVERY NIGHT AT BEDTIME 05/17/2017 08/14/2017 Inactive cyclobenzaprine 5 mg tablet RxNorm: 684773 Tablet(s) PO TAKE 1 TABLET BY MOUTH THREE TIMES DAILY NEEDED FOR MUSCLE SPASMS (New dose has not been sent to pharmacy) 05/11/2017 No Stop Date Active Valium 5 mg tablet RxNorm: 023729 1 Tablet(s) PO QID as needed (New dose has not been sent to pharmacy) 05/11/2017 No Stop Date Active diazepam 10 mg tablet RxNorm: 076690 TAKE 1 TABLET BY MOUTH FOUR TIMES DAILY NEEDED 04/28/2017 05/27/2017 Inactive hydrocodone 10 mg-acetaminophen 325 mg tablet RxNorm: 652065 1-2 Tablet(s) PO Q6 as needed for pain 04/27/2017 05/19/2017 Inactive cyanocobalamin (vit B-12) 1,000 mcg/mL injection solution RxNorm: 413730 1 Milliliter(s) Inj 04/27/2017 04/27/2017 Inactive hydrocodone 10 mg-acetaminophen 325 mg tablet RxNorm: 679681 1-2 Tablet(s) PO Q6 as needed for pain 03/17/2017 04/08/2017 Inactive Seroquel 100 mg tablet RxNorm: 774434 1 TABLET(S) PO BID 201603/06/2018 Inactive TAKE 1 TABLET BY MOUTH TWICE DAILY Valium 10 mg tablet RxNorm: 740270 1 Tablet(s) QID as needed 03/05/2017 05/03/2017 Inactive Claritin-D 12 Hour 5 mg-120 mg tablet,extended release RxNorm: 2281839 Tablet(s) as needed TAKE 1 TABLET BY MOUTH TWICE DAILY NEEDED 201604/13/2018 Inactive pantoprazole 40 mg tablet,delayed release RxNorm: 698973 TAKE 1 TABLET BY MOUTH EVERY DAY 02/26/2017 08/16/2017 Inactive tramadol 50 mg tablet RxNorm: 769021 1-2 Tablet(s) PO TID as needed 02/17/2017 05/17/2017 Inactive hydrocodone 10 mg-acetaminophen 325 mg tablet RxNorm: 982759 1-2 Tablet(s) PO Q6 as needed for pain 02/17/2017 03/11/2017 Inactive Valium 10 mg tablet RxNorm: 710728 1 Tablet(s) QID as needed 02/02/2017 03/03/2017 Inactive (Response to an electronic controlled substance refill request - RxReferenceNumber: [id number]|1|0|1) nystatin 100,000 unit/gram topical powder RxNorm: 772939 1 APPLICATION TOP QID UNTIL HEALED 01/21/2017 No Stop Date Active Advair Diskus 250 mcg-50 mcg/dose powder for inhalation RxNorm: 7262658 1 Puff(s) INH BID 01/21/2017 05/20/2017 Inactive hydrocodone 10 mg-acetaminophen 325 mg tablet RxNorm: 829760 1-2 Tablet(s) PO Q6 as needed for pain 01/21/2017 02/11/2017 Inactive metoprolol tartrate 25 mg tablet RxNorm: 123836 TABLET(S) 1/2 TABLET(S) PO BID TAKE 1/2 TABLET BY MOUTH TWICE DAILY 01/18/2017 07/06/2017 Inactive Effexor XR 150 mg capsule,extended release RxNorm: 369664 1 CAPSULE(S) PO BID 01/11/2017 07/06/2017 Inactive TAKE 1 CAPSULE BY MOUTH TWICE DAILY Effexor XR 150 mg capsule,extended release RxNorm: 901022 1 Capsule(s) PO BID 1 CAPSULE(S) PO BID 01/08/2017 07/06/2017 Inactive TAKE 1 CAPSULE BY MOUTH TWICE DAILY nystatin 100,000 unit/gram topical powder RxNorm: 738132 1 APPLICATION TOP QID UNTIL HEALED 12/17/2016 01/20/2017 Inactive hydrocodone 10 mg-acetaminophen 325 mg tablet RxNorm: 429929 1-2 Tablet(s) PO Q6 as needed for pain 12/17/2016 01/07/2017 Inactive Claritin-D 12 Hour 5 mg-120 mg tablet,extended release RxNorm: 4424632 Tablet(s) as needed TAKE 1 TABLET BY MOUTH TWICE DAILY NEEDED 201602/12/2017 Inactive Lipitor 20 mg tablet RxNorm: 132453 1 TABLET(S) PO DAILY 201606/07/2017 Inactive TAKE ONE TABLET BY MOUTH EVERY NIGHT AT BEDTIME Advair Diskus 250 mcg-50 mcg/dose powder for inhalation RxNorm: 4455282 1 Puff(s) INH BID 11/26/2016 01/20/2017 Inactive Valium 10 mg tablet RxNorm: 968481 1 Tablet(s) QID as needed 11/24/2016 01/22/2017 Inactive (Response to an electronic controlled substance refill request - RxReferenceNumber: [id number]|1|0|1) cyanocobalamin (vit B-12) 1,000 mcg/mL injection solution RxNorm: 131861 1 Milliliter(s) Inj 11/17/2016 11/17/2016 Inactive tramadol 50 mg tablet RxNorm: 933600 1-2 Tablet(s) PO TID as needed 11/06/2016 10/19/2017 Inactive hydrocodone 10 mg-acetaminophen 325 mg tablet RxNorm: 283295 1-2 Tablet(s) PO Q6 as needed for pain 11/06/2016 11/27/2016 Inactive nystatin 100,000 unit/gram topical powder RxNorm: 622054 1 Application TOP QID until healed 10/27/2016 12/16/2016 Inactive cyanocobalamin (vit B-12) 1,000 mcg/mL injection solution RxNorm: 942227 1 Milliliter(s) Inj 10/12/2016 10/12/2016 Inactive trazodone 100 mg tablet RxNorm: 161744 Tablet(s) TAKE 2 TABLETS BY MOUTH EVERY NIGHT AT BEDTIME 09/24/2016 03/22/2017 Inactive Valium 10 mg tablet RxNorm: 786808 1 Tablet(s) QID as needed 09/24/2016 11/22/2016 Inactive (Response to an electronic controlled substance refill request - RxReferenceNumber: [id number]|1|0|1) Savella 100 mg tablet RxNorm: 285739 TABLET(S) PO TAKE 1 TABLET BY MOUTH DAILY 09/18/2016 08/30/2017 Inactive pantoprazole 40 mg tablet,delayed release RxNorm: 849125 TAKE 1 TABLET BY MOUTH EVERY DAY 09/18/2016 02/25/2017 Inactive cyanocobalamin (vit B-12) 1,000 mcg/mL injection solution RxNorm: 351784 1 Milliliter(s) Inj 09/11/2016 09/11/2016 Inactive hydrocodone 10 mg-acetaminophen 325 mg tablet RxNorm: 238489 1-2 Tablet(s) PO Q6 as needed for pain 08/24/2016 11/05/2016 Inactive (Response to an electronic controlled substance refill request - RxReferenceNumber: [id number]|1|0|1) Claritin-D 12 Hour 5 mg-120 mg tablet,extended release RxNorm: 2682745 Tablet(s) TAKE 1 TABLET BY MOUTH TWICE DAILY NEEDED 08/13/2016 04/13/2018 Inactive tramadol 50 mg tablet RxNorm: 257353 1-2 Tablet(s) PO TID PRN as needed 08/11/2016 11/05/2016 Inactive metoprolol tartrate 25 mg tablet RxNorm: 256738 TABLET(S) 1/2 TABLET(S) PO BID TAKE 1/2 TABLET BY MOUTH TWICE DAILY 08/10/2016 01/17/2017 Inactive pantoprazole 40 mg tablet,delayed release RxNorm: 580696 TAKE 1 TABLET BY MOUTH EVERY DAY 08/10/2016 11/05/2016 Inactive Savella 100 mg tablet RxNorm: 930008 TABLET(S) PO TAKE 1 TABLET BY MOUTH DAILY 08/10/2016 11/05/2016 Inactive Ventolin HFA 90 mcg/actuation aerosol inhaler RxNorm: 790613 1 OR 2 PUFF(S) INH Q6 PRN NEEDED 08/07/2016 02/02/2017 Inactive Diflucan 150 mg tablet RxNorm: 738586 1 Tablet(s) PO daily 08/201608/13/2016 Inactive nystatin 100,000 unit/mL oral suspension RxNorm: 912885 5 Milliliter(s) PO QID 08/07/2016 08/16/2016 Inactive hydrocodone 10 mg-acetaminophen 325 mg tablet RxNorm: 370761 1-2 Tablet(s) PO Q6 as needed for pain 08/04/2016 08/23/2016 Inactive (Response to an electronic controlled substance refill request - RxReferenceNumber: [id number]|1|0|1) Valium 10 mg tablet RxNorm: 756215 1 Tablet(s) QID as needed 07/20/2016 09/17/2016 Inactive (Response to an electronic controlled substance refill request - RxReferenceNumber: [id number]|1|0|1) tramadol 50 mg tablet RxNorm: 352106 1-2 Tablet(s) PO TID PRN as needed 07/15/2016 11/05/2016 Inactive ok to give 1 month vgifqy=281 tablets cyanocobalamin (vit B-12) 1,000 mcg/mL injection solution RxNorm: 159844 Milliliter(s) Inj 07/03/2016 07/03/2016 Inactive Seroquel 100 mg tablet RxNorm: 180220 1 TABLET(S) PO BID 201603/15/2017 Inactive TAKE 1 TABLET BY MOUTH TWICE DAILY hydrocodone 10 mg-acetaminophen 325 mg tablet RxNorm: 323176 1-2 Tablet(s) PO Q6 as needed for pain 06/26/2016 08/03/2016 Inactive (Response to an electronic controlled substance refill request - RxReferenceNumber: [id number]|1|0|1) Valium 10 mg tablet RxNorm: 779179 1 Tablet(s) QID as needed 05/11/2016 07/09/2016 Inactive (Response to an electronic controlled substance refill request - RxReferenceNumber: [id number]|1|0|1) tramadol 50 mg tablet RxNorm: 946156 1-2 Tablet(s) PO TID PRN as needed 05/11/2016 07/08/2016 Inactive ok to give 1 month ajsydu=564 tablets cyclobenzaprine 10 mg tablet RxNorm: 798310 TAKE 1 TABLET BY MOUTH THREE TIMES DAILY NEEDED FOR MUSCLE SPASMS 05/11/2016 05/10/2017 Inactive hydrocodone 10 mg-acetaminophen 325 mg tablet RxNorm: 718909 1-2 Tablet(s) PO Q6 as needed for pain 05/06/2016 06/25/2016 Inactive (Response to an electronic controlled substance refill request - RxReferenceNumber: [id number]|1|0|1) cyanocobalamin (vit B-12) 1,000 mcg/mL injection solution RxNorm: 897181 1 Milliliter(s) Inj 04/20/2016 04/20/2016 Inactive hydrocodone 10 mg-acetaminophen 325 mg tablet RxNorm: 804277 1-2 Tablet(s) PO Q6 as needed for pain 04/03/2016 05/05/2016 Inactive (Response to an electronic controlled substance refill request - RxReferenceNumber: [id number]|1|0|1) pantoprazole 40 mg tablet,delayed release RxNorm: 984034 TAKE 1 TABLET BY MOUTH EVERY DAY 04/02/2016 08/09/2016 Inactive Claritin-D 12 Hour 5 mg-120 mg tablet,extended release RxNorm: 6731311 Tablet(s) TAKE 1 TABLET BY MOUTH TWICE DAILY NEEDED 04/02/2016 11/05/2016 Inactive hydrocodone 10 mg-acetaminophen 325 mg tablet RxNorm: 160494 1-2 Tablet(s) PO Q6 as needed for pain 03/12/2016 04/02/2016 Inactive (Response to an electronic controlled substance refill request - RxReferenceNumber: [id number]|1|0|1) Effexor XR 150 mg capsule,extended release RxNorm: 916311 1 CAPSULE(S) PO BID 03/05/2016 01/07/2017 Inactive TAKE 1 CAPSULE BY MOUTH TWICE DAILY Ventolin HFA 90 mcg/actuation aerosol inhaler RxNorm: 419552 1 OR 2 PUFF(S) INH Q6 PRN NEEDED 02/19/2016 08/06/2016 Inactive cyanocobalamin (vit B-12) 1,000 mcg/mL injection solution RxNorm: 210542 Milliliter(s) Inj 02/13/2016 02/13/2016 Inactive hydrocodone 10 mg-acetaminophen 325 mg tablet RxNorm: 992166 1-2 Tablet(s) PO Q6 as needed for pain 02/05/2016 03/11/2016 Inactive (Response to an electronic controlled substance refill request - RxReferenceNumber: [id number]|1|0|1) Valium 10 mg tablet RxNorm: 543034 1 Tablet(s) QID as needed 02/05/2016 05/04/2016 Inactive (Response to an electronic controlled substance refill request - RxReferenceNumber: [id number]|1|0|1) tramadol 50 mg tablet RxNorm: 085120 1-2 Tablet(s) PO TID PRN as needed 02/05/2016 11/05/2016 Inactive ok to give 1 month unmdrl=469 tablets hydrocodone 10 mg-acetaminophen 325 mg tablet RxNorm: 530917 1-2 Tablet(s) PO Q6 as needed for pain 01/08/2016 02/04/2016 Inactive (Response to an electronic controlled substance refill request - RxReferenceNumber: [id number]|1|0|1) metoprolol tartrate 25 mg tablet RxNorm: 773370 Tablet(s) 1/2 TABLET(S) PO BID TAKE 1/2 TABLET BY MOUTH TWICE DAILY 01/08/2016 08/09/2016 Inactive Symbicort 160 mcg-4.5 mcg/actuation HFA aerosol inhaler RxNorm: 4927555 2 INH BID 01/03/2016 11/25/2016 Inactive Symbicort 160 mcg-4.5 mcg/actuation HFA aerosol inhaler RxNorm: 6473239 1 INH daily 01/03/2016 01/02/2016 Inactive Lipitor 20 mg tablet RxNorm: 287503 1 TABLET(S) PO DAILY 201506/26/2016 Inactive TAKE ONE TABLET BY MOUTH EVERY NIGHT AT BEDTIME trazodone 100 mg tablet RxNorm: 575192 TAKE 2 TABLETS BY MOUTH EVERY NIGHT AT BEDTIME 12/30/2015 09/23/2016 Inactive Savella 100 mg tablet RxNorm: 567899 TABLET(S) PO TAKE 1 TABLET BY MOUTH DAILY 12/30/2015 08/09/2016 Inactive hydrocodone 10 mg-acetaminophen 325 mg tablet RxNorm: 966420 1-2 Tablet(s) PO Q6 as needed for pain 12/12/2015 01/07/2016 Inactive (Response to an electronic controlled substance refill request - RxReferenceNumber: [id number]|1|0|1) cyanocobalamin (vit B-12) 1,000 mcg/mL injection solution RxNorm: 080990 1 Milliliter(s) Inj 12/02/2015 12/02/2015 Inactive hydrocodone 10 mg-acetaminophen 325 mg tablet RxNorm: 391405 1-2 Tablet(s) PO Q6 as needed for pain 12/02/2015 12/11/2015 Inactive (Response to an electronic controlled substance refill request - RxReferenceNumber: [id number]|1|0|1) Claritin-D 12 Hour 5 mg-120 mg tablet,extended release RxNorm: 0138890 Tablet(s) TAKE 1 TABLET BY MOUTH TWICE DAILY 11/11/2015 11/10/2015 Inactive Claritin-D 12 Hour 5 mg-120 mg tablet,extended release RxNorm: 4703166 Tablet(s) TAKE 1 TABLET BY MOUTH TWICE DAILY NEEDED 11/11/2015 01/06/2016 Inactive tramadol 50 mg tablet RxNorm: 848568 1-2 Tablet(s) PO TID PRN as needed 11/05/2015 11/05/2016 Inactive ok to give 1 month seiswq=576 tablets Valium 10 mg tablet RxNorm: 499554 1 Tablet(s) QID as needed 11/05/2015 02/02/2016 Inactive (Response to an electronic controlled substance refill request - RxReferenceNumber: [id number]|1|0|1) cyanocobalamin (vit B-12) 1,000 mcg/mL injection solution RxNorm: 393749 1 Milliliter(s) Inj 10/29/2015 10/29/2015 Inactive hydrocodone 10 mg-acetaminophen 325 mg tablet RxNorm: 756812 1-2 Tablet(s) PO Q6 as needed for pain 10/28/2015 12/01/2015 Inactive (Response to an electronic controlled substance refill request - RxReferenceNumber: [id number]|1|0|1) pantoprazole 40 mg tablet,delayed release RxNorm: 637558 TAKE 1 TABLET BY MOUTH EVERY DAY 10/08/2015 04/01/2016 Inactive Seroquel 100 mg tablet RxNorm: 728409 1 TABLET(S) PO BID 201506/29/2016 Inactive TAKE 1 TABLET BY MOUTH TWICE DAILY trazodone 100 mg tablet RxNorm: 468171 TAKE 2 TABLETS BY MOUTH EVERY NIGHT AT BEDTIME 10/08/2015 10/01/2016 Inactive Lipitor 20 mg tablet RxNorm: 240490 1 TABLET(S) PO DAILY 201504/04/2016 Inactive TAKE ONE TABLET BY MOUTH EVERY NIGHT AT BEDTIME hydrocodone 10 mg-acetaminophen 325 mg tablet RxNorm: 677265 1-2 Tablet(s) PO Q6 as needed for pain 09/19/2015 10/18/2015 Inactive (Response to an electronic controlled substance refill request - RxReferenceNumber: [id number]|1|0|1) Valium 10 mg tablet RxNorm: 844895 1 Tablet(s) QID as needed 09/05/2015 11/03/2015 Inactive (Response to an electronic controlled substance refill request - RxReferenceNumber: [id number]|1|0|1) Savella 100 mg tablet RxNorm: 075257 Tablet(s) PO TAKE 1 TABLET BY MOUTH DAILY 07/19/2015 11/05/2016 Inactive Zithromax Z-Lauor 250 mg tablet RxNorm: 680535 1 Tablet(s) PO UD 07/12/2015 11/04/2015 Inactive z lauro hydrocodone 10 mg-acetaminophen 325 mg tablet RxNorm: 854214 1-2 Tablet(s) PO Q6 as needed for pain 07/10/2015 08/08/2015 Inactive (Response to an electronic controlled substance refill request - RxReferenceNumber: [id number]|1|0|1) tramadol 50 mg tablet RxNorm: 515210 1-2 Tablet(s) PO TID PRN as needed 07/04/2015 11/05/2016 Inactive ok to give 1 month gkjwcj=408 tablets hydrocodone 10 mg-acetaminophen 325 mg tablet RxNorm: 510546 1-2 Tablet(s) PO Q6 as needed for pain 06/10/2015 07/09/2015 Inactive (Response to an electronic controlled substance refill request - RxReferenceNumber: [id number]|1|0|1) cyanocobalamin (vit B-12) 1,000 mcg/mL injection solution RxNorm: 262990 Milliliter(s) Inj 06/10/2015 06/10/2015 Inactive pantoprazole 40 mg tablet,delayed release RxNorm: 435977 TABLET(S) PO TAKE 1 TABLET BY MOUTH EVERY DAY 06/10/201511/05 Inactive pantoprazole 40 mg tablet,delayed release RxNorm: 704649 Tablet(s) PO TAKE 1 TABLET BY MOUTH EVERY DAY 06/06/201511/05 Inactive tramadol 50 mg tablet RxNorm: 975895 1-2 Tablet(s) PO TID PRN as needed 05/29/2015 06/27/2015 Inactive ok to give 1 month neqyem=724 tablets tramadol 50 mg tablet RxNorm: 178098 1-2 Tablet(s) PO Q6 as needed 05/29/2015 06/09/2015 Inactive Valium 10 mg tablet RxNorm: 743876 1 Tablet(s) QID as needed 05/08/2015 07/06/2015 Inactive (Response to an electronic controlled substance refill request - RxReferenceNumber: [id number]|1|0|1) cyclobenzaprine 10 mg tablet RxNorm: 270805 TAKE 1 TABLET BY MOUTH THREE TIMES DAILY NEEDED FOR MUSCLE SPASMS 05/08/2015 05/10/2016 Inactive Effexor XR 150 mg capsule,extended release RxNorm: 646655 1 Capsule(s) PO BID 1 CAPSULE(S) PO BID 05/08/2015 11/05/2016 Inactive TAKE 1 CAPSULE BY MOUTH TWICE DAILY hydrocodone 10 mg-acetaminophen 325 mg tablet RxNorm: 602031 1-2 Tablet(s) PO Q6 as needed for pain 05/08/2015 06/06/2015 Inactive (Response to an electronic controlled substance refill request - RxReferenceNumber: [id number]|1|0|1) metoprolol tartrate 25 mg tablet RxNorm: 830190 1/2 TABLET(S) PO BID TAKE 1/2 TABLET BY MOUTH TWICE DAILY 05/06/201507/2015 Inactive Claritin-D 12 Hour 5 mg-120 mg tablet,extended release RxNorm: 9702564 TAKE 1 TABLET BY MOUTH TWICE DAILY 04/16/201506/2016 Inactive hydrocodone 10 mg-acetaminophen 325 mg tablet RxNorm: 744906 1-2 Tablet(s) PO Q6 as needed for pain 04/15/2015 05/07/2015 Inactive (Response to an electronic controlled substance refill request - RxReferenceNumber: [id number]|1|0|1) pantoprazole 40 mg tablet,delayed release RxNorm: 328008 TABLET(S) PO TAKE 1 TABLET BY MOUTH EVERY DAY 04/08/201506/06 Inactive hydrocodone 10 mg-acetaminophen 325 mg tablet RxNorm: 638705 1 Tablet(s) PO Q4 PRN TAKE 1-2 TABLETS BY MOUTH EVERY 6 HOURS NEEDED FOR PAIN 03/14/2015 04/12/2015 Inactive (Response to an electronic controlled substance refill request - RxReferenceNumber: [id number]|1|0|1) diazepam 10 mg tablet RxNorm: 987926 1 Tablet(s) TID TAKE 1 TABLET BY MOUTH THREE TIMES DAILY NEEDED 02/08/20152016 Inactive (Response to an electronic controlled substance refill request - RxReferenceNumber: [id number]|1|0|1) Effexor XR 150 mg capsule,extended release RxNorm: 009929 1 CAPSULE(S) PO BID 02/07/2015 05/07/2015 Inactive TAKE 1 CAPSULE BY MOUTH TWICE DAILY cyclobenzaprine 10 mg tablet RxNorm: 968925 TAKE 1 TABLET BY MOUTH THREE TIMES DAILY NEEDED FOR MUSCLE SPASMS 02/07/2015 05/07/2015 Inactive pantoprazole 40 mg tablet,delayed release RxNorm: 841351 TABLET(S) PO TAKE 1 TABLET BY MOUTH EVERY DAY 02/07/201504/07 Inactive hydrocodone 10 mg-acetaminophen 325 mg tablet RxNorm: 881399 1 Tablet(s) PO Q4 PRN TAKE 1-2 TABLETS BY MOUTH EVERY 6 HOURS NEEDED FOR PAIN 01/25/2015 02/23/2015 Inactive (Response to an electronic controlled substance refill request - RxReferenceNumber: [id number]|1|0|1) Bactroban Nasal 2 % ointment RxNorm: 780002 1 Application NASAL BID 01/10/2015 01/10/2015 Inactive mupirocin 2 % topical ointment RxNorm: 464472 1 Application TOP TID 1 APPLICATION TOP PRN 01/10/2015 01/19/2015 Inactive disregard order for nasal ointment , use on left knee trazodone 100 mg tablet RxNorm: 660664 TAKE 2 TABLETS BY MOUTH EVERY NIGHT AT BEDTIME 01/08/2015 10/07/2015 Inactive Seroquel 100 mg tablet RxNorm: 130000 1 TABLET(S) PO BID 201410/04/2015 Inactive TAKE 1 TABLET BY MOUTH TWICE DAILY cyclobenzaprine 10 mg tablet RxNorm: 865015 TAKE 1 TABLET BY MOUTH THREE TIMES DAILY NEEDED FOR MUSCLE SPASMS 01/08/2015 02/06/2015 Inactive hydrocodone 10 mg-acetaminophen 325 mg tablet RxNorm: 448374 1 Tablet(s) PO Q4 PRN TAKE 1-2 TABLETS BY MOUTH EVERY 6 HOURS NEEDED FOR PAIN 12/21/2014 01/19/2015 Inactive (Response to an electronic controlled substance refill request - RxReferenceNumber: [id number]|1|0|1) pantoprazole 40 mg tablet,delayed release RxNorm: 161287 TABLET(S) PO TAKE 1 TABLET BY MOUTH EVERY DAY 12/13/201402/06 Inactive Lipitor 20 mg tablet RxNorm: 963847 1 Tablet(s) PO daily 201409/08/2015 Inactive TAKE ONE TABLET BY MOUTH EVERY NIGHT AT BEDTIME Valium 10 mg tablet RxNorm: 397117 1 Tablet(s) QID as needed 12/12/2014 02/09/2015 Inactive (Response to an electronic controlled substance refill request - RxReferenceNumber: [id number]|1|0|1) hydrocodone 10 mg-acetaminophen 325 mg tablet RxNorm: 821907 Tablet(s) TAKE 1-2 TABLETS BY MOUTH EVERY 6 HOURS NEEDED FOR PAIN 12/12/2014 12/20/2014 Inactive ( Response to an electronic controlled substance refill request - RxReferenceNumber: [id number]|1|0|1) Lipitor 20 mg tablet RxNorm: 118460 1 Tablet(s) PO daily 201412/12/2014 Inactive TAKE ONE TABLET BY MOUTH EVERY NIGHT AT BEDTIME pantoprazole 40 mg tablet,delayed release RxNorm: 299086 TABLET(S) PO TAKE 1 TABLET BY MOUTH EVERY DAY 12/06/201411/05 Inactive Savella 100 mg tablet RxNorm: 083548 Tablet(s) PO TAKE 1 TABLET BY MOUTH DAILY 12/06/2014 07/18/2015 Inactive Lipitor 20 mg tablet RxNorm: 931928 1 Tablet(s) PO daily 201412/10/2014 Inactive TAKE ONE TABLET BY MOUTH EVERY NIGHT AT BEDTIME Valium 10 mg tablet RxNorm: 393239 TAKE 1 TABLET BY MOUTH FOUR TIMES DAILY NEEDED FOR ANXIETY 12/06/2014 12/11/2014 Inactive Valium 10 mg tablet RxNorm: 628082 1 Tablet(s) QID as needed 11/13/2014 12/11/2014 Inactive (Response to an electronic controlled substance refill request - RxReferenceNumber: [id number]|1|0|1) hydrocodone 10 mg-acetaminophen 325 mg tablet RxNorm: 020164 Tablet(s) TAKE 1-2 TABLETS BY MOUTH EVERY 6 HOURS NEEDED FOR PAIN 11/13/2014 12/11/2014 Inactive ( Response to an electronic controlled substance refill request - RxReferenceNumber: [id number]|1|0|1) hydrocodone 10 mg-acetaminophen 325 mg tablet RxNorm: 004120 Tablet(s) TAKE 1-2 TABLETS BY MOUTH EVERY 6 HOURS NEEDED FOR PAIN 11/08/2014 11/12/2014 Inactive ( Response to an electronic controlled substance refill request - RxReferenceNumber: [id number]|1|0|1) Valium 10 mg tablet RxNorm: 368425 1 Tablet(s) QID as needed 11/08/2014 11/12/2014 Inactive (Response to an electronic controlled substance refill request - RxReferenceNumber: [id number]|1|0|1) metoprolol tartrate 25 mg tablet RxNorm: 358706 1/2 TABLET(S) PO BID TAKE 1/2 TABLET BY MOUTH TWICE DAILY 11/08/2014 Inactive Valium 10 mg tablet RxNorm: 247654 TAKE 1 TABLET BY MOUTH FOUR TIMES DAILY NEEDED FOR ANXIETY 11/06/2014 12/09/2014 Inactive Vitamin D2 50,000 unit capsule RxNorm: 704744 1 Capsule(s) PO QW 10/24/2014 10/23/2014 Inactive Vitamin D2 50,000 unit capsule RxNorm: 520756 1 Capsule(s) PO QW x 8 weeks 10/24/2014 12/22/2014 Inactive Entyvio 300 mg intravenous solution RxNorm: 6842072 IV 2014 No Stop Date Active hydrocodone 10 mg-acetaminophen 325 mg tablet RxNorm: 166795 Tablet(s) TAKE 1-2 TABLETS BY MOUTH EVERY 6 HOURS NEEDED FOR PAIN 10/05/2014 11/03/2014 Inactive ( Response to an electronic controlled substance refill request - RxReferenceNumber: [id number]|1|0|1) Valium 10 mg tablet RxNorm: 103770 TAKE 1 TABLET BY MOUTH EVERY 8 HOURS NEEDED 10/05/2014 11/03/2014 Inactive (Response to an electronic controlled substance refill request - RxReferenceNumber: [id number]|1|0|1) Valium 10 mg tablet RxNorm: 161764 1 Tablet(s) PO QID as needed TAKE 1 TABLET BY MOUTH 10/05/2014 11/05/2016 Inactive (Response to an electronic controlled substance refill request - RxReferenceNumber: [id number]|1|0|1) Valium 10 mg tablet RxNorm: 492081 TAKE 1 TABLET BY MOUTH THREE TIMES DAILY NEEDED 09/04/2014 10/03/2014 Inactive (Response to an electronic controlled substance refill request - RxReferenceNumber: [id number]|1|0|1) Valium 10 mg tablet RxNorm: 642403 1 Tablet(s) PO Q8 PRN as needed 09/04/2014 11/09/2014 Inactive hydrocodone 10 mg-acetaminophen 325 mg tablet RxNorm: 393498 Tablet(s) TAKE 1-2 TABLETS BY MOUTH EVERY 6 HOURS NEEDED FOR PAIN 08/27/2014 09/25/2014 Inactive ( Response to an electronic controlled substance refill request - RxReferenceNumber: [id number]|1|0|1) Claritin-D 12 Hour 5 mg-120 mg tablet,extended release RxNorm: 1342540 1 Tablet(s ) PO BID 08/27/2014 04/16/2015 Inactive Ventolin HFA 90 mcg/actuation aerosol inhaler RxNorm: 063697 1 or 2 Puff(s) INH Q6 PRN as needed 08/09/2014 03/06/2015 Inactive pantoprazole 40 mg tablet,delayed release RxNorm: 243797 Tablet(s) PO TAKE 1 TABLET BY MOUTH EVERY DAY 08/09/201408/08 Inactive pantoprazole 40 mg tablet,delayed release RxNorm: 476738 TAKE 1 TABLET BY MOUTH EVERY DAY 08/09/2014 11/05/2016 Inactive diazepam 10 mg tablet RxNorm: 834003 TAKE 1 TABLET BY MOUTH THREE TIMES DAILY NEEDED 07/02/2014 07/31/2014 Inactive (Response to an electronic controlled substance refill request - RxReferenceNumber: [id number]|1|0|1) Valium 10 mg tablet RxNorm: 441340 1 Tablet(s) PO Q8 PRN as needed 07/02/2014 07/01/2014 Inactive hydrocodone 10 mg-acetaminophen 325 mg tablet RxNorm: 810160 Tablet(s) TAKE 1-2 TABLETS BY MOUTH EVERY 6 HOURS NEEDED FOR PAIN 06/14/2014 07/13/2014 Inactive ( Response to an electronic controlled substance refill request - RxReferenceNumber: [id number]|1|0|1) diazepam 10 mg tablet RxNorm: 295538 TAKE 1 TABLET BY MOUTH THREE TIMES DAILY NEEDED 05/29/2014 06/27/2014 Inactive (Response to an electronic controlled substance refill request - RxReferenceNumber: [id number]|1|0|1) diazepam 10 mg tablet RxNorm: 282984 Tablet(s) PO TAKE 1 TABLET BY MOUTH THREE TIMES DAILY NEEDED 05/29/20142013 Inactive (Appended: Controlled substance eRx refill - RxReferenceNumber: [id number]|1|0|1) hydrocodone 10 mg-acetaminophen 325 mg tablet RxNorm: 694201 Tablet(s) TAKE 1-2 TABLETS BY MOUTH EVERY 6 HOURS NEEDED FOR PAIN 05/17/2014 06/13/2014 Inactive ( Response to an electronic controlled substance refill request - RxReferenceNumber: [id number]|1|0|1) diazepam 10 mg tablet RxNorm: 465221 Tablet(s) PO TAKE 1 TABLET BY MOUTH THREE TIMES DAILY NEEDED 04/27/20142013 Inactive (Appended: Controlled substance eRx refill - RxReferenceNumber: [id number]|1|0|1) Anucort-HC 25 mg suppository RxNorm: 9104600 1 SUPPOSITORY RTL QDAY PRN NEEDED 04/03/2014 06/01/2014 Inactive metoprolol tartrate 25 mg tablet RxNorm: 072595 1/2 TABLET(S) PO BID TAKE 1/2 TABLET BY MOUTH TWICE DAILY 04/03/201408/2014 Inactive Anucort-HC 25 mg suppository RxNorm: 2992197 1 SUPPOSITORY RTL QDAY PRN NEEDED 04/03/2014 06/01/2014 Inactive Seroquel 100 mg tablet RxNorm: 038139 1 TABLET(S) PO BID 201312/28/2014 Inactive TAKE 1 TABLET BY MOUTH TWICE DAILY Anucort-HC 25 mg suppository RxNorm: 2987665 1 SUPPOSITORY RTL QDAY PRN NEEDED 04/03/2014 06/01/2014 Inactive hydrocodone 10 mg-acetaminophen 325 mg tablet RxNorm: 448596 Tablet(s) TAKE 1-2 TABLETS BY MOUTH EVERY 6 HOURS NEEDED FOR PAIN 03/22/2014 04/20/2014 Inactive ( Response to an electronic controlled substance refill request - RxReferenceNumber: [id number]|1|0|1) Claritin-D 12 Hour 5 mg-120 mg tablet,extended release RxNorm: 8603460 1 Tablet(s ) PO BID 03/22/2014 2014 Inactive diazepam 10 mg tablet RxNorm: 715858 TAKE 1 TABLET BY MOUTH THREE TIMES DAILY NEEDED 03/19/2014 04/16/2014 Inactive (Response to an electronic controlled substance refill request - RxReferenceNumber: [id number]|1|0|1) Lipitor 20 mg tablet RxNorm: 558856 1 TABLET(S) PO DAILY 201312/05/2014 Inactive TAKE ONE TABLET BY MOUTH EVERY NIGHT AT BEDTIME Effexor XR 150 mg capsule,extended release RxNorm: 415776 1 CAPSULE(S) PO BID 03/01/2014 01/24/2015 Inactive TAKE 1 CAPSULE BY MOUTH TWICE DAILY Claritin-D 12 Hour 5 mg-120 mg tablet,extended release RxNorm: 6337499 1 Tablet(s ) PO BID 02/19/2014 03/21/2014 Inactive cyanocobalamin (vit B-12) 1,000 mcg/mL injection solution RxNorm: 068993 Milliliter(s) Inj 02/15/2014 02/15/2014 Inactive hydrocodone 10 mg-acetaminophen 325 mg tablet RxNorm: 356875 1 Tablet(s) PO Q6 PRN TAKE ONE TO TWO TABLETS BY MOUTH EVERY 6 HOURS NEEDED FOR PAIN 01/30/2014 01/30/2014 Inactive (Response to an electronic controlled substance refill request - RxReferenceNumber: [id number]|1|0|1) hydrocodone 10 mg-acetaminophen 325 mg tablet RxNorm: 304852 TAKE 1-2 TABLETS BY MOUTH EVERY 6 HOURS NEEDED FOR PAIN 01/30/2014 02/19/2014 Inactive (Response to an electronic controlled substance refill request - RxReferenceNumber: [id number]| [id number]|1|0|1) cyanocobalamin (vit B-12) 1,000 mcg/mL injection kit RxNorm: 569230 1 Milliliter(s ) Inj 01/15/2014 01/15/2014 Inactive Kenalog 40 mg/mL suspension for injection RxNorm: 3931369 1 Milliliter(s) Inj 01/15/2014 01/15/2014 Inactive Anucort-HC 25 mg suppository RxNorm: 3743615 1 Suppository RTL QDAY PRN as needed 01/15/2014 02/13/2014 Inactive hydrocodone 10 mg-acetaminophen 325 mg tablet RxNorm: 709074 TAKE ONE TO TWO TABLETS BY MOUTH EVERY 6 HOURS NEEDED FOR PAIN 12/29/2013 01/18/2014 Inactive ( Response to an electronic controlled substance refill request - RxReferenceNumber: [id number]|1|0|1) trazodone 100 mg tablet RxNorm: 072281 TAKE 2 TABLETS BY MOUTH EVERY NIGHT AT BEDTIME 12/20/2013 12/14/2014 Inactive mupirocin 2 % topical ointment RxNorm: 248642 1 APPLICATION TOP PRN 12/14/2013 01/09/2015 Inactive cyanocobalamin (vit B-12) 1,000 mcg/mL injection solution RxNorm: 108283 1 Milliliter(s) Inj 12/04/2013 12/04/2013 Inactive Savella 100 mg tablet RxNorm: 735131 1 Tablet(s) PO daily TAKE 1 TABLET BY MOUTH DAILY 11/28/2013 11/05/2016 Inactive Savella 100 mg tablet RxNorm: 972921 Tablet(s) PO TAKE 1 TABLET BY MOUTH DAILY 10/27/2013 11/27/2013 Inactive mupirocin 2 % topical ointment RxNorm: 481580 1 Application TOP PRN 10/17/2013 No Stop Date Active trazodone 100 mg tablet RxNorm: 415027 Tablet(s) PO TAKE 2 TABLETS BY MOUTH EVERY NIGHT AT BEDTIME 09/26/2013 11/05/2016 Inactive cyclobenzaprine 10 mg tablet RxNorm: 402878 Tablet(s) PO TAKE ONE TABLET BY MOUTH THREE TIMES DAILY 09/26/2013 01/07/2015 Inactive diazepam 10 mg tablet RxNorm: 235103 Tablet(s) PO TAKE 1 TABLET BY MOUTH THREE TIMES DAILY NEEDED 08/15/20132013 Inactive (Appended: Controlled substance eRx refill - RxReferenceNumber: [id number]|1|0|1) diazepam 10 mg tablet RxNorm: 404505 1 Tablet(s) PO TID PRN TAKE 1 TABLET BY MOUTH THREE TIMES DAILY NEEDED 08/15/2013 Inactive (Appended: Controlled substance eRx refill - RxReferenceNumber: [id number]|1|0|1) Vitamin B-12 1,000 mcg/mL injection solution RxNorm: 721218 Milliliter(s) Inj 07/24/2013 07/24/2013 Inactive pantoprazole 40 mg tablet,delayed release RxNorm: 021206 Tablet(s) PO TAKE 1 TABLET BY MOUTH EVERY DAY 07/20/201308/08 Inactive hydrocodone 10 mg-acetaminophen 325 mg tablet RxNorm: 689718 1 or 2 Tablet(s) PO Q6 PRN limit 6 per day 06/26/20132013 Inactive (Appended: Controlled substance eRx refill - RxReferenceNumber: [id number]|1|0|1) trazodone 100 mg tablet RxNorm: 420240 Tablet(s) PO TAKE 2 TABLETS BY MOUTH EVERY NIGHT AT BEDTIME 06/26/2013 11/05/2016 Inactive pantoprazole 40 mg tablet,delayed release RxNorm: 759025 Tablet(s) PO TAKE 1 TABLET BY MOUTH EVERY DAY 06/20/201306/05 Inactive prednisone 10 mg tablets in a dose pack RxNorm: 955635 Tablet(s) PO 6-5-4-3-2-1 06/13/2013 06/12/2013 Inactive prednisone 10 mg tablets in a dose pack RxNorm: 621976 Tablet(s) PO UD 6-5-4-3-2- 1 06/13/2013 06/18/2013 Inactive Silvadene 1 % topical cream RxNorm: 904314 1 TOP daily apply thin layer to left knee daily 06/12/2013 06/18/2013 Inactive metoprolol tartrate 25 mg tablet RxNorm: 075776 1/2 Tablet(s) PO BID TAKE 1/2 TABLET BY MOUTH TWICE DAILY 05/19/2013 Inactive Lipitor 20 mg tablet RxNorm: 217617 1 Tablet(s) PO daily 201203/11/2014 Inactive TAKE ONE TABLET BY MOUTH EVERY NIGHT AT BEDTIME Vitamin B-12 1,000 mcg/mL injection solution RxNorm: 513645 1 Milliliter(s) Inj 05/10/2013 05/10/2013 Inactive hydrocodone 10 mg-acetaminophen 325 mg tablet RxNorm: 099253 1 or 2 Tablet(s) PO Q6 PRN limit 6 per day 03/16/2013 No Stop Date Active (Appended: Controlled substance eRx refill - RxReferenceNumber: [id number]|1|0|1) Seroquel 100 mg tablet RxNorm: 155677 1 Tablet(s) PO BID 201203/10/2014 Inactive TAKE 1 TABLET BY MOUTH TWICE DAILY Effexor XR 150 mg capsule,extended release RxNorm: 798332 1 Capsule(s) PO BID 03/16/2013 02/28/2014 Inactive TAKE 1 CAPSULE BY MOUTH TWICE DAILY fluconazole 150 mg tablet RxNorm: 566595 1 Tablet(s) PO daily 03/06/2013 03/12/2013 Inactive Kenalog 40 mg/mL Susp for Injection RxNorm: 3464098 Milliliter(s) Inj 03/06/2013 03/06/2013 Inactive Ventolin HFA 90 mcg/actuation Aerosol Inhaler RxNorm: 0983640 1 or 2 Puff(s) INH Q6 PRN 02/20/2013 03/16/2014 Inactive cyanocobalamin (vitamin B-12) 1,000 mcg/mL Injection RxNorm: 616409 Milliliter(s) Inj 02/20/2013 02/20/2013 Inactive Valium 10 mg tablet RxNorm: 119226 1 Tablet(s) PO Q8 PRN 01/3102/24/2014 Inactive Kenalog 40 mg/mL Susp for Injection RxNorm: 7913005 Milliliter(s) Inj 12/26/2012 12/26/2012 Inactive cyanocobalamin (vitamin B-12) 1,000 mcg/mL Injection RxNorm: 070004 Milliliter(s) Inj 12/21/2012 12/21/2012 Inactive hydrocodone 10 mg-acetaminophen 325 mg tablet RxNorm: 6930216 1 or 2 Tablet(s) PO Q6 PRN limit 6 per day 11/25/20122012 Inactive (Appended: Controlled substance eRx refill - RxReferenceNumber: [id number]|1|0|1) diazepam 10 mg tablet RxNorm: 974403 1 Tablet(s) PO TID PRN 08/15/2013 Inactive TAKE 1 TABLET BY MOUTH THREE TIMES DAILY NEEDED (Appended: Controlled substance eRx refill - RxReferenceNumber: [id number]|1|0|1) diazepam 10 mg tablet RxNorm: 310823 Tablet(s) PO TAKE 1 TABLET BY MOUTH THREE TIMES DAILY NEEDED 11/21/20122013 Inactive (Appended: Controlled substance eRx refill - RxReferenceNumber: [id number]|1|0|1) Vitamin B-12 1,000 mcg/mL Injection RxNorm: 912805 1 Milliliter(s) Inj 11/16/2012 11/16/2012 Inactive hydrocodone 10 mg-acetaminophen 325 mg tablet RxNorm: 0410425 1 or 2 Tablet(s) PO Q6 PRN limit 6 per day 10/24/20122012 Inactive (Appended: Controlled substance eRx refill - RxReferenceNumber: [id number]|1|0|1) hydrocodone 10 mg-acetaminophen 325 mg tablet RxNorm: 8514813 Tablet(s) PO limit 5x days 10/24/2012 10/23/2012 Inactive (Appended: Controlled substance eRx refill - RxReferenceNumber: [id number]|1|0|1) Savella 100 mg tablet RxNorm: 972185 Tablet(s) PO TAKE 1 TABLET BY MOUTH DAILY 10/14/2012 12/05/2014 Inactive Tubersol 5 tub. unit/0.1 mL Intradermal RxNorm: 453457 Milliliter(s) IDrm 09/26/2012 09/26/2012 Inactive hydrocodone 10 mg-acetaminophen 325 mg tablet RxNorm: 7675389 1 Tablet(s) PO Q4 PRN q 4 hr prn limit 5 per day 09/19/2012 No Stop Date Active (Appended: Controlled substance eRx refill - RxReferenceNumber: [id number]|1|0|1) hydrocodone 10 mg-acetaminophen 325 mg tablet RxNorm: 5559049 Tablet(s) PO TAKE 1 TABLET BY MOUTH FOUR TIMES DAILY 09/16/2012 10/23/2012 Inactive (Appended: Controlled substance eRx refill - RxReferenceNumber: [id number]|1|0|1) cyclobenzaprine 10 mg tablet RxNorm: 871912 Tablet(s) PO TAKE ONE TABLET BY MOUTH THREE TIMES DAILY 09/16/2012 09/25/2013 Inactive hydrocodone 10 mg-acetaminophen 325 mg tablet RxNorm: 9572032 1 Tablet(s) PO Q4 PRN q 4 hr prn limit 5 per day 09/14/2012 09/19/2012 Inactive (Appended: Controlled substance eRx refill - RxReferenceNumber: [id number]|1|0|1) cyanocobalamin (vitamin B-12) 1,000 mcg/mL Injection RxNorm: 923263 1 Milliliter(s ) Inj 09/12/2012 09/12/2012 Inactive cyclobenzaprine 10 mg tablet RxNorm: 279438 Tablet(s) PO TAKE ONE TABLET BY MOUTH THREE TIMES DAILY 09/02/2012 09/15/2012 Inactive hydrocodone 10 mg-acetaminophen 325 mg tablet RxNorm: 7825622 1 Tablet(s) PO QID TAKE 1 TABLET BY MOUTH FOUR TIMES DAILY 08/23/2012 09/13/2012 Inactive (Appended: Controlled substance eRx refill - RxReferenceNumber: [id number]|1|0|1) Kenalog 40 mg/mL Susp for Injection RxNorm: 8371061 1 Milliliter(s) Inj 08/11/2012 08/11/2012 Inactive Vitamin B-12 1,000 mcg/mL Injection RxNorm: 975663 1 Milliliter(s) Inj 08/11/2012 08/11/2012 Inactive Zithromax 250 mg tablet RxNorm: 239994 Tablet(s) PO 07/21/2012 09/14/2012 Inactive please give z lauro cefdinir 300 mg capsule RxNorm: 589991 1 Capsule(s) PO BID 07/20/2012 Inactive cefdinir 300 mg capsule RxNorm: 548783 1 Capsule(s) PO BID 07/27/2012 Inactive diazepam 10 mg tablet RxNorm: 284779 1 Tablet(s) PO TID PRN 12/201211/22/2012 Inactive TAKE 1 TABLET BY MOUTH THREE TIMES DAILY NEEDED (Appended: Controlled substance eRx refill - RxReferenceNumber: [id number]|1|0|1) Vitamin B-12 1,000 mcg/mL Injection RxNorm: 433211 1 Milliliter(s) Inj 07/13/2012 07/13/2012 Inactive pantoprazole 40 mg tablet,delayed release RxNorm: 773103 1 Tablet(s) PO daily 06/14/2012 06/13/2012 Inactive pantoprazole 40 mg tablet,delayed release RxNorm: 420412 1 Tablet(s) PO daily 06/14/2012 06/19/2013 Inactive trazodone 100 mg tablet RxNorm: 705308 Tablet(s) PO TAKE 2 TABLETS BY MOUTH EVERY NIGHT AT BEDTIME 06/06/2012 11/05/2016 Inactive hydrocodone 10 mg-acetaminophen 325 mg tablet RxNorm: 6670970 Tablet(s) PO TAKE 1 TABLET BY MOUTH FOUR TIMES DAILY 05/24/2012 08/23/2012 Inactive (Appended: Controlled substance eRx refill - RxReferenceNumber: [id number]|1|0|1) Symbicort 160 mcg-4.5 mcg/actuation HFA Aerosol Inhaler RxNorm: 2470784 1 INH daily 05/24/2012 05/23/2012 Inactive this is an increase in dosing Symbicort 160 mcg-4.5 mcg/actuation HFA Aerosol Inhaler RxNorm: 4703322 1 INH daily 05/24/2012 06/17/2013 Inactive this is an increase in dosing Ventolin HFA 90 mcg/actuation Aerosol Inhaler RxNorm: 718182 1 or 2 Puff(s) INH Q6 PRN 05/24/2012 05/23/2012 Inactive Ventolin HFA 90 mcg/actuation Aerosol Inhaler RxNorm: 919227 1 or 2 Puff(s) INH Q6 PRN 05/24/2012 02/19/2013 Inactive metoprolol tartrate 25 mg tablet RxNorm: 067819 Tablet(s) PO TAKE 1/2 TABLET BY MOUTH TWICE DAILY 05/24/2012 05/18/2013 Inactive hydrocodone-acetaminophen 10 mg-325 mg tablet RxNorm: 9278726 Tablet(s) PO TAKE 1 TABLET BY MOUTH FOUR TIMES DAILY 05/17/2012 05/17/2012 Inactive (Appended: Controlled substance eRx refill - RxReferenceNumber: [id number]|1|0|1) diazepam 10 mg tablet RxNorm: 222060 Tablet(s) PO 05/03/2012 07/13/2012 Inactive TAKE 1 TABLET BY MOUTH THREE TIMES DAILY NEEDED (Appended: Controlled substance eRx refill - RxReferenceNumber: [id number]|1|0|1) metoprolol tartrate 25 mg tablet RxNorm: 028650 Tablet(s) PO 11/05/2016 Inactive TAKE 1/2 TABLET BY MOUTH TWICE DAILY hydrocodone-acetaminophen 10 mg-325 mg tablet RxNorm: 5008313 Tablet(s) PO 04/11/2012 05/17/2012 Inactive TAKE 1 TABLET BY MOUTH FOUR TIMES DAILY (Appended: Controlled substance eRx refill - RxReferenceNumber: [id number]|1|0|1) ProAir HFA 90 mcg/actuation Aerosol Inhaler RxNorm: 171891 2 INH Q4 PRN 04/05/2012 04/29/2013 Inactive Symbicort 80 mcg-4.5 mcg/actuation HFA Aerosol Inhaler RxNorm: 2938997 2 INH BID 04/05/2012 04/04/2012 Inactive Symbicort 80 mcg-4.5 mcg/actuation HFA Aerosol Inhaler RxNorm: 3305422 2 INH BID 04/05/2012 05/23/2012 Inactive ProAir HFA 90 mcg/actuation Aerosol Inhaler RxNorm: 279595 2 INH Q4 PRN 04/05/2012 04/04/2012 Inactive diazepam 10 mg tablet RxNorm: 455898 Tablet(s) PO 03/17/2012 05/03/2012 Inactive TAKE 1 TABLET BY MOUTH THREE TIMES DAILY NEEDED (Appended: Controlled substance eRx refill - RxReferenceNumber: [id number]|1|0|1) Effexor XR 150 mg capsule,extended release RxNorm: 076593 Capsule(s) PO 03/13/2012 03/15/2013 Inactive TAKE 1 CAPSULE BY MOUTH TWICE DAILY fluconazole 150 mg tablet RxNorm: 634563 1 Tablet(s) PO daily 03/11/2012 03/17/2012 Inactive Lipitor 20 mg tablet RxNorm: 794592 Tablet(s) PO 02/25/2012 03/20/2013 Inactive TAKE ONE TABLET BY MOUTH EVERY NIGHT AT BEDTIME Seroquel 100 mg tablet RxNorm: 698956 1 Tablet(s) PO BID 201102/18/2013 Inactive TAKE 1 TABLET BY MOUTH TWICE DAILY hydrocodone-acetaminophen 10 mg-325 mg tablet RxNorm: 6916248 Tablet(s) PO 02/25/2012 04/11/2012 Inactive TAKE 1 TABLET BY MOUTH FOUR TIMES DAILY . (Appended : Controlled substance eRx refill - RxReferenceNumber: [id number]|1|0|1) Seroquel 100 mg tablet RxNorm: 896273 1 Tablet(s) PO BID 201102/24/2012 Inactive TAKE 1 TABLET BY MOUTH TWICE DAILY Nexium 40 mg capsule,delayed release RxNorm: 559616 1 Capsule(s) PO daily 02/16/2012 06/13/2012 Inactive Effexor XR 150 mg capsule,extended release RxNorm: 854813 Capsule(s) PO 01/14/2012 11/05/2016 Inactive TAKE 1 CAPSULE BY MOUTH TWICE DAILY Kenalog 40 mg/mL Susp for Injection RxNorm: 5022549 1 Milliliter(s) Inj 01/13/2012 01/13/2012 Inactive Vitamin B-12 1,000 mcg/mL Injection RxNorm: 323292 Milliliter(s) Inj 12/21/2011 12/21/2011 Inactive hydrocodone-acetaminophen 10 mg-325 mg tablet RxNorm: 9421276 Tablet(s) PO 12/15/2011 02/25/2012 Inactive TAKE 1 TABLET BY MOUTH FOUR TIMES DAILY (Appended: Controlled substance eRx refill - RxReferenceNumber: [id number]|1|0|1) diazepam 10 mg tablet RxNorm: 261875 Tablet(s) PO 12/15/2011 03/17/2012 Inactive TAKE 1 TABLET BY MOUTH THREE TIMES DAILY NEEDED (Appended: Controlled substance eRx refill - RxReferenceNumber: [id number]|1|0|1) diazepam 10 mg Tab RxNorm: 883409 1 Tablet(s) PO daily 201112/15/2011 Inactive TAKE 1 TABLET BY MOUTH THREE TIMES DAILY (Appended: Controlled substance eRx refill - RxReferenceNumber: [id number]|1|0|1) hydrocodone-acetaminophen 10 mg-325 mg Tab RxNorm: 0469806 1 Tablet(s) PO QID 12/14/2011 12/15/2011 Inactive TAKE 1 TABLET BY MOUTH FOUR TIMES DAILY (Appended: Controlled substance eRx refill - RxReferenceNumber: [id number]|1|0|1) Seroquel 100 mg tablet RxNorm: 853434 Tablet(s) PO 11/27/2011 03/15/2013 Inactive TAKE 1 TABLET BY MOUTH TWICE DAILY hydrocodone-acetaminophen 10 mg-325 mg Tab RxNorm: 6853472 1 Tablet(s) PO QID 11/27/2011 12/13/2011 Inactive TAKE 1 TABLET BY MOUTH FOUR TIMES DAILY (Appended: Controlled substance eRx refill - RxReferenceNumber: [id number]|1|0|1) Seroquel 100 mg Tab RxNorm: 219125 1 Tablet(s) PO BID 201111/26/2011 Inactive Seroquel 100 mg tablet RxNorm: 463547 Tablet(s) PO 11/27/2011 02/16/2012 Inactive TAKE 1 TABLET BY MOUTH TWICE DAILY Nexium 40 mg capsule,delayed release RxNorm: 025788 1 Capsule(s) PO daily 11/16/2011 02/15/2012 Inactive cyanocobalamin (vitamin B-12) 1,000 mcg/mL Injection RxNorm: 831680 1 Milliliter(s ) Inj 10/30/2011 10/30/2011 Inactive hydrocodone-acetaminophen 10 mg-325 mg Tab RxNorm: 4006922 1 Tablet(s) PO QID 10/13/2011 11/23/2011 Inactive TAKE 1 TABLET BY MOUTH FOUR TIMES DAILY (Appended: Controlled substance eRx refill - RxReferenceNumber: [id number]|1|0|1) Effexor XR 150 mg capsule,extended release RxNorm: 068134 1 Capsule(s) PO BID 10/12/2011 01/09/2012 Inactive Fish Oil 1,000 mg Cap RxNorm: 1 Capsule(s) PO QID 10/02/2011 No Stop Date Active Vitamin B-12 1,000 mcg/mL Injection RxNorm: 372108 Milliliter(s) Inj 10/02/2011 10/02/2011 Inactive Kenalog 40 mg/mL Susp for Injection RxNorm: 3636289 Milliliter(s) Inj 10/02/2011 10/02/2011 Inactive diazepam 10 mg Tab RxNorm: 266801 1 Tablet(s) PO daily 201112/13/2011 Inactive TAKE 1 TABLET BY MOUTH THREE TIMES DAILY (Appended: Controlled substance eRx refill - RxReferenceNumber: [id number]|1|0|1) Vitamin B-12 1,000 mcg/mL Injection RxNorm: 396801 Milliliter(s) Inj 09/01/2011 09/01/2011 Inactive hydrocodone-acetaminophen 10 mg-325 mg Tab RxNorm: 2293370 1 Tablet(s) PO QID 08/25/2011 10/05/2011 Inactive TAKE 1 TABLET BY MOUTH FOUR TIMES DAILY (Appended: Controlled substance eRx refill - RxReferenceNumber: [id number]|1|0|1) diazepam 10 mg Tab RxNorm: 048176 Tablet(s) PO 08/10/2011 No Stop Date Active TAKE 1 TABLET BY MOUTH THREE TIMES DAILY (Appended: Controlled substance eRx refill - RxReferenceNumber: [id number]|1|0|1) Vitamin B-12 1,000 mcg/mL Injection RxNorm: 463555 Milliliter(s) Inj 08/03/2011 08/03/2011 Inactive fluticasone 50 mcg/actuation Nasal [place], Susp RxNorm: 9437588 2 [place] NASAL BID 07/27/2011 08/19/2012 Inactive hydrocodone-acetaminophen 10 mg-325 mg Tab RxNorm: 5099512 Tablet(s) PO 07/09/2011 08/24/2011 Inactive TAKE 1 TABLET BY MOUTH FOUR TIMES DAILY (Appended: Controlled substance eRx refill - RxReferenceNumber: [id number]|1|0|1) diazepam 10 mg Tab RxNorm: 296728 Tablet(s) PO 07/09/2011 08/09/2011 Inactive TAKE 1 TABLET BY MOUTH THREE TIMES DAILY (Appended: Controlled substance eRx refill - RxReferenceNumber: [id number]|1|0|1) diazepam 10 mg Tab RxNorm: 380542 Tablet(s) PO 07/08/2011 07/08/2011 Inactive TAKE 1 TABLET BY MOUTH THREE TIMES DAILY (Appended: Controlled substance eRx refill - RxReferenceNumber: [id number]|1|0|1) hydrocodone-acetaminophen 10 mg-325 mg Tab RxNorm: 9015071 Tablet(s) PO 07/08/2011 07/08/2011 Inactive TAKE 1 TABLET BY MOUTH FOUR TIMES DAILY (Appended: Controlled substance eRx refill - RxReferenceNumber: [id number]|1|0|1) cyclobenzaprine 10 mg tablet RxNorm: 095089 Tablet(s) PO 201109/01/2012 Inactive TAKE ONE TABLET BY MOUTH THREE TIMES DAILY Lipitor 40 mg Tab RxNorm: 766566 1 Tablet(s) PO daily 201106/16/2011 Inactive Lipitor 40 mg Tab RxNorm: 349750 1 Tablet(s) PO daily 201106/10/2012 Inactive trazodone 100 mg tablet RxNorm: 356936 Tablet(s) PO 06/02/2011 06/05/2012 Inactive TAKE 2 TABLETS BY MOUTH EVERY NIGHT AT BEDTIME diazepam 10 mg Tab RxNorm: 509727 Tablet(s) PO 05/28/2011 05/29/2011 Inactive TAKE 1 TABLET BY MOUTH THREE TIMES DAILY (Appended: Controlled substance eRx refill - RxReferenceNumber: [id number]|1|0|1) diazepam 10 mg Tab RxNorm: 003339 Tablet(s) PO 05/28/2011 07/08/2011 Inactive TAKE 1 TABLET BY MOUTH THREE TIMES DAILY (Appended: Controlled substance eRx refill - RxReferenceNumber: [id number]|1|0|1) hydrocodone-acetaminophen 10 mg-325 mg Tab RxNorm: 1787948 1 Tablet(s) PO QID 05/26/2011 07/08/2011 Inactive metoprolol tartrate 25 mg tablet RxNorm: 381541 Tablet(s) PO 04/10/2012 Inactive TAKE 1/2 TABLET BY MOUTH TWICE DAILY Savella 100 mg tablet RxNorm: 496129 Tablet(s) PO 05/14/2011 10/13/2012 Inactive TAKE 1 TABLET BY MOUTH DAILY Influenza Virus Vaccine 0.5 mL RxNorm: IM 02/23/2011 02/23/2011 Inactive B12 1000 mcg RxNorm: IM 02/23/20112010 Inactive hydrocodone-acetaminophen 10 mg-325 mg Tab RxNorm: 8827427 1 Tablet(s) PO QID 01/29/2011 01/28/2011 Inactive Restasis 0.05 % eye drops in a dropperette RxNorm: 445210 1 OPH BID No Start Date Active vitamin A-vit C-vit E-zinc-Se Tab RxNorm: 1 Tablet(s) PO daily No Start Date Active garlic extract Oral RxNorm: Oral No Start Date Active Acidophilus Tab RxNorm : 2 Tablet(s) PO QHS No Start Date Active Cranberry Concentrate Cap RxNorm: 1 Capsule(s) PO BID No Start Date Active Xopenex 1.25 mg/3 mL Neb Solution RxNorm: 393199 1 Milliliter(s) INH TID No Start Date Active niacin ER 500 mg Tab RxNorm: 190212 2 Tablet(s) PO HS No Start Date Active SenokotXTRA 17.2 mg Tab RxNorm: 2486102 Oral No Start Date Active Lotemax 0.5 % eye ointment RxNorm: 8529066 1 OPH QHS No Start Date Active Gaviscon Extra Strength Oral RxNorm: Oral No Start Date Active melatonin 3 mg Tab RxNorm: 217189 1 Tablet(s) PO QHS No Start Date Active Voltaren 1 % Topical Gel RxNorm: 144444 4 Gram(s) TOP QID No Start Date Active Vitamin D 1,000 unit Cap RxNorm: 326618 1 Capsule(s) PO QHS No Start Date Active Mucinex DM 30 mg-600 mg 12 hr Tab RxNorm: 7320623 1 Tablet(s) PO BID No Start Date Active calcium citrate 200 mg (950 mg) Tab RxNorm: 367281 1 Tablet(s) PO QID No Start Date Active valerian 530 mg Cap RxNorm: 2 Capsule(s) PO QHS No Start Date Active Anucort-HC 25 mg Suppository RxNorm: 2460303 1 Suppository RTL QDAY PRN No Start Date 01/14/2014 Inactive Nexium 40 mg Capsule, delayed release RxNorm: 412158 1 Capsule(s) PO daily No Start Date 11/15/2011 Inactive Lipitor 20 mg tablet RxNorm: 419606 1 Tablet(s) PO QHS No Start Date 02/25/2012 Inactive mupirocin 2 % topical ointment RxNorm: 335508 1 Application TOP PRN No Start Date 10/16/2013 Inactive fluconazole 150 mg tablet RxNorm: 437346 1 Tablet(s) PO daily No Start Date 03/10/2012 Inactive Fish Oil 1,000 mg Cap RxNorm: 1 Capsule(s) PO TID No Start Date 10/01/2011 Inactive hydrocodone-acetaminophen 10 mg-325 mg Tab RxNorm: 2915631 1 Tablet(s) PO QID No Start Date 05/25/2011 Inactive Zithromax 250 mg tablet RxNorm: 801002 Tablet(s) PO No Start Date 07/20/2012 Inactive please give z lauro prednisone 10 mg tablet RxNorm: 731492 Tablet(s) PO taper. 6-5-4-3-2-1 # 21 No Start Date 09/16/2017 Inactive fluticasone 50 mcg/actuation Nasal [place], Susp RxNorm: 5924722 2 [place] NASAL BID No Start Date 07/26/2011 Inactive Seroquel 100 mg Tab RxNorm: 823091 1 Tablet(s) PO BID No Start Date 11/26/2011 Inactive nystatin 100,000 unit/gram topical powder RxNorm: 090852 1 Application TOP QID until healed No Start Date 10/26/2016 Inactive Savella 100 mg Tab RxNorm: 764069 1 Tablet(s) PO daily No Start Date 05/13/2011 Inactive cyclobenzaprine 10 mg Tab RxNorm: 262392 1 Tablet(s) PO TID No Start Date 07/05/2011 Inactive metoprolol tartrate 25 mg Tab RxNorm: 109625 1/2 Tablet(s) PO BID No Start Date 05/25/2011 Inactive trazodone 100 mg Tab RxNorm: 823865 2 Tablet(s) PO QHS No Start Date 06/01/2011 Inactive Zithromax Z-Lauro 250 mg tablet RxNorm: 361669 1 Tablet(s) PO UD No Start Date 07/11/2015 Inactive z lauro Effexor XR 150 mg 24 hr Cap RxNorm: 661674 1 Capsule(s) PO BID No Start Date 10/11/2011 Inactive diazepam 10 mg Tab RxNorm: 095066 1 Tablet(s) PO TID No Start Date 05/28/2011 Inactive tramadol 50 mg tablet RxNorm: 946202 1-2 Tablet(s) PO Q6 as needed No Start Date 05/28/2015 Inactive Medication Administered Medication Codes Instructions Start Date Status cyanocobalamin (vit B-12) 1,000 mcg/mL injection solution RxNorm: 934680 1Milliliter 03/10/2018 No longer Active cyanocobalamin (vit B-12) 1,000 mcg/mL injection solution RxNorm: 073384 1Milliliter 10/19/2017 No longer Active cyanocobalamin (vit B-12) 1,000 mcg/mL injection solution RxNorm: 498447 1Milliliter 08/19/2017 No longer Active cyanocobalamin (vit B-12) 1,000 mcg/mL injection solution RxNorm: 944300 1Milliliter 07/06/2017 No longer Active cyanocobalamin (vit B-12) 1,000 mcg/mL injection solution RxNorm: 734736 1Milliliter 04/27/2017 No longer Active cyanocobalamin (vit B-12) 1,000 mcg/mL injection solution RxNorm: 149276 1Milliliter 11/17/2016 No longer Active cyanocobalamin (vit B-12) 1,000 mcg/mL injection solution RxNorm: 311620 1Milliliter 10/12/2016 No longer Active cyanocobalamin (vit B-12) 1,000 mcg/mL injection solution RxNorm: 651720 1Milliliter 09/11/2016 No longer Active cyanocobalamin (vit B-12) 1,000 mcg/mL injection solution RxNorm: 511082 Milliliter 07/03/2016 No longer Active cyanocobalamin (vit B-12) 1,000 mcg/mL injection solution RxNorm: 464744 1Milliliter 04/20/2016 No longer Active cyanocobalamin (vit B-12) 1,000 mcg/mL injection solution RxNorm: 818794 Milliliter 02/13/2016 No longer Active cyanocobalamin (vit B-12) 1,000 mcg/mL injection solution RxNorm: 567196 1Milliliter 12/02/2015 No longer Active cyanocobalamin (vit B-12) 1,000 mcg/mL injection solution RxNorm: 641173 1Milliliter 10/29/2015 No longer Active cyanocobalamin (vit B-12) 1,000 mcg/mL injection solution RxNorm: 108891 Milliliter 06/10/2015 No longer Active cyanocobalamin (vit B-12) 1,000 mcg/mL injection solution RxNorm: 813793 Milliliter 02/15/2014 No longer Active cyanocobalamin (vit B-12) 1,000 mcg/mL injection kit RxNorm : 269141 1Milliliter 01/15/2014 No longer Active Kenalog 40 mg/mL suspension for injection RxNorm: 7604556 1Milliliter 01/15/2014 No longer Active cyanocobalamin (vit B-12) 1,000 mcg/mL injection solution RxNorm: 890105 1Milliliter 12/04/2013 No longer Active Vitamin B-12 1,000 mcg/mL injection solution RxNorm: 282463 Milliliter 07/24/2013 No longer Active Vitamin B-12 1,000 mcg/mL injection solution RxNorm: 162522 1Milliliter 05/10/2013 No longer Active Kenalog 40 mg/mL Susp for Injection RxNorm: 4289676 Milliliter 03/06/2013 No longer Active cyanocobalamin (vitamin B-12) 1,000 mcg/mL Injection RxNorm : 793162 Milliliter 02/20/2013 No longer Active Kenalog 40 mg/mL Susp for Injection RxNorm: 7496474 Milliliter 12/26/2012 No longer Active cyanocobalamin (vitamin B-12) 1,000 mcg/mL Injection RxNorm : 513167 Milliliter 12/21/2012 No longer Active Vitamin B-12 1,000 mcg/mL Injection RxNorm: 945948 1Milliliter 11/16/2012 No longer Active Tubersol 5 tub. unit/0.1 mL Intradermal RxNorm: 254743 Milliliter 09/26/2012 No longer Active cyanocobalamin (vitamin B-12) 1,000 mcg/mL Injection RxNorm : 010809 1Milliliter 09/12/2012 No longer Active Kenalog 40 mg/mL Susp for Injection RxNorm: 8100116 1Milliliter 08/11/2012 No longer Active Vitamin B-12 1,000 mcg/mL Injection RxNorm: 349047 1Milliliter 08/11/2012 No longer Active Vitamin B-12 1,000 mcg/mL Injection RxNorm: 477727 1Milliliter 07/13/2012 No longer Active Kenalog 40 mg/mL Susp for Injection RxNorm: 3445558 1Milliliter 01/13/2012 No longer Active Vitamin B-12 1,000 mcg/mL Injection RxNorm: 110639 Milliliter 12/21/2011 No longer Active cyanocobalamin (vitamin B-12) 1,000 mcg/mL Injection RxNorm : 424865 1Milliliter 10/30/2011 No longer Active Kenalog 40 mg/mL Susp for Injection RxNorm: 4609273 Milliliter 10/02/2011 No longer Active Vitamin B-12 1,000 mcg/mL Injection RxNorm: 852466 Milliliter 10/02/2011 No longer Active Vitamin B-12 1,000 mcg/mL Injection RxNorm: 440260 Milliliter 09/01/2011 No longer Active Vitamin B-12 1,000 mcg/mL Injection RxNorm: 771565 Milliliter 08/03/2011 No longer Active Influenza Virus [...] 02/23/2011 completed Assessments Condition Codes Effective Dates Chronic pain syndrome ICD-10: G89.4 ICD-9: 338.4 04/05/2018 Essential (primary) hypertension ICD-10: I10 ICD-9: 401.1 04/05/2018 Vitamin B12 deficiency anemia due to intrinsic factor deficiency ICD-10: D51.0 ICD-9: 281.0 04/05/2018 Generalized anxiety disorder ICD-10: F41.1 ICD-9: 300.02 03/10/2018 Major depressive disorder, recurrent, mild ICD-10: F33.0 [...] back pain ICD-10: M54.5 ICD-9: 724.2 07/07/2016 Pleurodynia ICD-10: R07.81 ICD-9: 786.50 04/20/2016 Hypoxemia ICD-10: R09.02 ICD-9: 799.02 04/20/2016 Encounter for immunization ICD-10: Z23 ICD-9: V04.81 03/17/2016 Radiculopathy, lumbar region ICD-10: M54.16 ICD-9: 724.4 03/17/2016 Mixed hyperlipidemia ICD-10: E78.2 ICD-9: 272.4 02/13/2016 Essential (primary) hypertension ICD-10: I10 ICD-9: 401.9 02/13/2016 Vitamin B12 deficiency anemia due to [...] 916.0 01/10 OSTEOARTH NOS-UNSPEC ICD-9: 715.90 2014 CHRONIC PAIN SYNDROME ICD-9: 338.4 2014 MYALGIA AND MYOSITIS ICD-9: 729.1 2014 GENERALIZED ANXIETY DISEASE ICD-9: 300.02 12/21/2014 DEPRESSIVE DISORDER NEC ICD-9: 311 2014 ESSENTIAL HYPERTENSION ICD-9: 401.9 10/05 Knee pain, right ICD-9: 719.46 2014 Ankle pain ICD-9: 719.47 06/14/2014 B12 deficiency ICD-9: 266.2 02/15/2014 Hemorrhoids ICD-9: 455.6 01/19/2014 Constipation ICD-9: 564.00 01/19/2014 Ulcer of knee ICD-9: 707.19 01/15/2014 ALLERGIC RHINITIS ICD-9: 477.9 2013 EDEMA ICD-9: 782.3 10/20/2013 Open wound of knee ICD-9: 891.0 2013 ANEMIA ICD-9: 285.9 10/20/2013 VACCIN FOR INFLUENZA ICD-9: V04.81 2012 UNSPECIFIED ASTHMA ICD-9: 493.90 2012 Encounter for tuberculin skin test ICD-9: V74.1 09/28/2012 PNEUMONIA (CAP) ICD-9: 486 07/21/2012 FEVER NOS ICD-9: 780.60 07/21/2012 MUSCLE/LIGAMENT DIS NEC ICD-9: 728.89 11/2012 Right foot pain ICD-9: 729.5 05/26/2012 Plantar fasciitis ICD-9: 728.71 2011 Chest wall pain ICD-9: 786.52 02/15/2012 Esophageal [...] 2011 Weight gain ICD-9: 783.1 06/29/2011 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 10/2010 Reason For Visit Reason For Visit Effective Dates Notes pain, generalized 04/05/2018 pain, generalized 03/10/2018 headache [...] injuries from a fall (hurts after sitting "[place] style" abdominal pain 02/12/2011 joint complaint 01/29/2011 Results Observation Observation Code Item Item Code Result Date Comp Metabolic Frf726 NA 138 mEq/L 09/20/2017 Comp Metabolic Cge310 K 4.1 mEq/L 09/20/2017 Comp Metabolic Gvd624 CL 101 mEq/L 09/20/2017 Comp Metabolic Iyc009 CO2 25.0 mEq/L 09/20/2017 Comp Metabolic Hxn027 ANION GAP 16 09/20/2017 Comp Metabolic Kcw651 GLUCOSE 105 mg/dL 09/20/2017 Comp Metabolic Acp898 Creat 0.8 mg/dL 09/20/2017 Comp Metabolic Nct976 eGFR 86 ml/min/1.73m2 09/20/2017 Comp Metabolic Pjf272 BUN 24 mg/dL 09/20/2017 Comp Metabolic Ulu972 B/C Ratio 31.6 Ratio 09/20/2017 Comp Metabolic Owz003 CALCIUM 10.0 mg/dL 09/20/2017 Comp Metabolic Vro291 ALK PHOS 63 U/L 09/20/2017 Comp Metabolic Vni696 AST(SGOT) 28 U/L 09/20/2017 Comp Metabolic Cvh789 ALT(SGPT) 34 U/L 09/20/2017 Comp Metabolic Bgb402 BILI T 0.3 mg/dL 09/20/2017 Comp Metabolic Ocy146 ALBUMIN 4.8 g/dL 09/20/2017 Comp Metabolic Lpm454 TPRO 7.2 g/dL 09/20/2017 Comp Metabolic Azy843 GLOB 2.4 g/dL 09/20/2017 Comp Metabolic Bgm353 A/G Ratio 2.0 Ratio 09/20/2017 Comp Metabolic Wkj802 Osmo 280 mOsmo 09/20/2017 Urine Culture Ucult Preliminary NO Growth Day 1 09/20/2017 Urine Culture Ucult Complete NO Growth Day 2 09/20/2017 Tsh Ord6 TSH (3rd IS) 1.60 uIU/mL 08/25/2017 Comp Metabolic Sbo292 NA 143 mEq/L 08/25/2017 Comp Metabolic Jji759 K 4.1 mEq/L 08/25/2017 Comp Metabolic Mnp667 CL 102 mEq/L 08/25/2017 Comp Metabolic Xbe011 CO2 33.0 mEq/L 08/25/2017 Comp Metabolic Jqu946 ANION GAP 12 08/25/2017 Comp Metabolic Txg955 GLUCOSE 99 mg/dL 08/25/2017 Comp Metabolic Wxq127 Creat 0.8 mg/dL 08/25/2017 Comp Metabolic Cbw086 eGFR 86 ml/min/1.73m2 08/25/2017 Comp Metabolic Uoq323 BUN 19 mg/dL 08/25/2017 Comp Metabolic Kum716 B/C Ratio 25.0 Ratio 08/25/2017 Comp Metabolic Kgh999 CALCIUM 9.5 mg/dL 08/25/2017 Comp Metabolic Nea356 ALK PHOS 63 U/L 08/25/2017 Comp Metabolic Rsu427 AST(SGOT) 17 U/L 08/25/2017 Comp Metabolic Gnc721 ALT(SGPT) 20 U/L 08/25/2017 Comp Metabolic Abl771 BILI T 0.3 mg/dL 08/25/2017 Comp Metabolic Vyh180 ALBUMIN 4.5 g/dL 08/25/2017 Comp Metabolic Wbj810 TPRO 6.6 g/dL 08/25/2017 Comp Metabolic Vqr408 GLOB 2.1 g/dL 08/25/2017 Comp Metabolic Dhy280 A/G Ratio 2.1 Ratio 08/25/2017 Comp Metabolic Hhl405 Osmo 287 mOsmo 08/25/2017 Lipid Ord30 CHOL 198 mg/dL 08/25/2017 Lipid Ord30 HDL 76.0 mg/dl 08/25/2017 Lipid Ord30 TRIG 243 mg/dL 08/25/2017 Lipid Ord30 LDL 73 mg/dL 08/25/2017 Lipid Ord30 C/HDL 2.6 Ratio 08/25/2017 B12 Hcm593 B12 904.00 pg/ml 08/25/2017 Vitamin D 25 Oh Ygt0404 VITAMIN D, 25 HYDROXY 46.43 ng/mL Cbc With Differential Ord2 WBC 7.82 K/ul 08/25/2017 Cbc With Differential Ord2 RBC 3.78 M/ul 08/25/2017 Cbc With Differential Ord2 HGB 12.2 g/dl 08/25/2017 Cbc With Differential Ord2 HCT 39.1 % 08/25/2017 Cbc With Differential Ord2 Neut% 44.4 % 08/25/2017 Cbc With Differential Ord2 Lymph% 46.7 % 08/25/2017 Cbc With Differential Ord2 MCV 103.4 fl 08/25/2017 Cbc With Differential Ord2 Esmeralda% 7.5 % 08/25/2017 Cbc With Differential Ord2 [...] 3.65 K/ul 08/25/2017 Cbc With Differential Ord2 Esmeralda ABS# 0.6 K/ul 08/25/2017 Cbc With Differential Ord2 Eos ABS# 0.1 K/ul 08/25/2017 Cbc With Differential Ord2 Baso ABS# 0.0 K/ul 08/25/2017 Comp Metabolic Spy057 NA 139 mEq/L 10/12/2016 Comp Metabolic Kll258 K 3.5 mEq/L 10/12/2016 Comp Metabolic Jyh393 CL 102 mEq/L 10/12/2016 Comp Metabolic Vkl213 CO2 25.0 mEq/L 10/12/2016 Comp Metabolic Zqt088 ANION GAP 16 10/12/2016 Comp Metabolic Twb058 GLUCOSE 84 mg/dL 10/12/2016 Comp Metabolic Erb630 Creat 0.6 mg/dL 10/12/2016 Comp Metabolic Fts112 eGFR 105 ml/min/1.73m2 10/12/2016 Comp Metabolic Laf093 BUN 12 mg/dL 10/12/2016 Comp Metabolic Mko195 B/C Ratio 18.8 Ratio 10/12/2016 Comp Metabolic Pvj131 CALCIUM 9.2 mg/dL 10/12/2016 Comp Metabolic Git440 ALK PHOS 59 U/L 10/12/2016 Comp Metabolic Jyi488 AST(SGOT) 21 U/L 10/12/2016 Comp Metabolic Qua209 ALT(SGPT) 27 U/L 10/12/2016 Comp Metabolic Tzf486 BILI T 0.2 mg/dL 10/12/2016 Comp Metabolic Vzx733 ALBUMIN 4.4 g/dL 10/12/2016 Comp Metabolic Gyr809 TPRO 6.7 g/dL 10/12/2016 Comp Metabolic Tnp477 GLOB 2.3 g/dL 10/12/2016 Comp Metabolic Xis949 A/G Ratio 1.9 Ratio 10/12/2016 Comp Metabolic Iib274 Osmo 276 mOsmo 10/12/2016 Cbc With Differential [...] 31.9 % 10/12/2016 Cbc With Differential Ord2 Esmeralda% 8.0 % 10/12/2016 Cbc With Differential Ord2 [...] 3.12 K/ul 10/12/2016 Cbc With Differential Ord2 Esmer[place]da ABS# 0.8 K/ul 10/12/2016 Cbc With Differential Ord2 Eos ABS# 0.1 K/ul 10/12/2016 Cbc With Differential Ord2 Baso ABS# 0.0 K/ul 10/12/2016 Tsh Ord6 hTSH II 1.18 uIU/mL 10/12/2016 Lipid Ord30 CHOL 194 mg/dL 10/12/2016 Lipid Ord30 HDL 76.0 mg/dl 10/12/2016 Lipid Ord30 TRIG 159 mg/dL 10/12/2016 Lipid Ord30 LDL 86 mg/dL 10/12/2016 Lipid Ord30 C/HDL 2.6 Ratio 10/12/2016 Lipid Ord30 CHOL 168 mg/dL 09/11/2016 Lipid Ord30 HDL 74.0 mg/dl 09/11/2016 Lipid Ord30 TRIG 167 mg/dL 09/11/2016 Lipid Ord30 LDL 61 mg/dL 09/11/2016 Lipid Ord30 C/HDL 2.3 Ratio 09/11/2016 Cbc With Differential Ord2 WBC 11.11 [...] 33.0 pg 09/11/2016 Cbc With Differential Ord2 [place]mer[place]da% 8.6 % 09/11/2016 Cbc With Differential Ord2 [...] 3.35 K/ul 09/11/2016 Cbc With Differential Ord2 [place] ABS# 1.0 K/ul 09/11/2016 Cbc With Differential Ord2 Eos ABS# 0.1 K/ul 09/11/2016 Cbc With Differential Ord2 Baso ABS# 0.0 K/ul 09/11/2016 Comp Metabolic Gxr928 NA 139 mEq/L 09/11/2016 Comp Metabolic Uhx058 K 3.6 mEq/L 09/11/2016 Comp Metabolic Crq909 CL 102 mEq/L 09/11/2016 Comp Metabolic Kzg953 CO2 26.0 mEq/L 09/11/2016 Comp Metabolic Vvt880 ANION GAP 15 09/11/2016 Comp Metabolic Urb617 GLUCOSE 90 mg/dL 09/11/2016 Comp Metabolic Ukh623 Creat 0.6 mg/dL 09/11/2016 Comp Metabolic Jzn448 eGFR 111 ml/min/1.73m2 09/11/2016 Comp Metabolic Epe527 BUN 14 mg/dL 09/11/2016 Comp Metabolic Fiy540 B/C Ratio 23.0 Ratio 09/11/2016 Comp Metabolic Dru166 CALCIUM 9.0 mg/dL 09/11/2016 Comp Metabolic Ocd641 ALK PHOS 56 U/L 09/11/2016 Comp Metabolic Svd260 AST(SGOT) 21 U/L 09/11/2016 Comp Metabolic Hni315 ALT(SGPT) 17 U/L 09/11/2016 Comp Metabolic Fyi375 BILI T 0.2 mg/dL 09/11/2016 Comp Metabolic Vcb497 ALBUMIN 4.1 g/dL 09/11/2016 Comp Metabolic Hkr181 TPRO 6.5 g/dL 09/11/2016 Comp Metabolic Ipo394 GLOB 2.4 g/dL 09/11/2016 Comp Metabolic Tmc544 A/G Ratio 1.7 Ratio 09/11/2016 Comp Metabolic Aro102 Osmo 278 mOsmo 09/11/2016 B12 Spv602 B12 474.00 pg/ml 09/11/2016 Tsh Ord6 hTSH II 1.73 uIU/mL 09/11/2016 B12 Yiu666 B12 827.00 pg/ml 03/02/2016 Sed Rate Ord21 ESR 5 mm/hr 02/28/2016 Tsh Ord6 hTSH II 1.25 uIU/mL 02/28/2016 Comp Metabolic Xtc039 NA 136 mEq/L 02/28/2016 Comp Metabolic Qkh463 K 4.0 mEq/L 02/28/2016 Comp Metabolic Gxm470 CL 103 mEq/L 02/28/2016 Comp Metabolic Bvj616 CO2 27.0 mEq/L 02/28/2016 Comp Metabolic Qvb141 ANION GAP 10 02/28/2016 Comp Metabolic Oaw565 GLUCOSE 138 mg/dL 02/28/2016 Comp Metabolic Xod197 Creat 0.6 mg/dL 02/28/2016 Comp Metabolic Hte324 eGFR 120 ml/min/1.73m2 02/28/2016 Comp Metabolic Tdy627 BUN 15 mg/dL 02/28/2016 Comp Metabolic Yst873 B/C Ratio 26.3 Ratio 02/28/2016 Comp Metabolic Cvh368 CALCIUM 8.8 mg/dL 02/28/2016 Comp Metabolic Myw235 ALK PHOS 58 U/L 02/28/2016 Comp Metabolic Zug843 AST(SGOT) 21 U/L 02/28/2016 Comp Metabolic Pnd584 ALT(SGPT) 21 U/L 02/28/2016 Comp Metabolic Arn790 BILI T 0.2 mg/dL 02/28/2016 Comp Metabolic Bpg840 ALBUMIN 3.8 g/dL 02/28/2016 Comp Metabolic Ihe640 TPRO 5.7 g/dL 02/28/2016 Comp Metabolic Bmk515 GLOB 1.9 g/dL 02/28/2016 Comp Metabolic Jgj776 A/G Ratio 2.0 Ratio 02/28/2016 Comp Metabolic Xwh095 Osmo 275 mOsmo 02/28/2016 Cbc With Differential Ord2 WBC 5.51 K/ul 02/28/2016 Cbc With Differential Ord2 RBC 3.26 M/ul 02/28/2016 Cbc With Differential Ord2 HGB 11.1 g/dl 02/28/2016 Cbc With Differential Ord2 HCT 35.3 % 02/28/2016 Cbc With Differential Ord2 Neut% 54.9 % 02/28/2016 Cbc With Differential Ord2 Lymph% 37.7 % 02/28/2016 Cbc With Differential Ord2 MCV 108.3 fl 02/28/2016 Cbc With Differential Ord2 Esmeralda% 5.4 % 02/28/2016 Cbc With Differential Ord2 [...] 2.08 K/ul 02/28/2016 Cbc With Differential Ord2 Esmeralda ABS# 0.3 K/ul 02/28/2016 Cbc With Differential Ord2 Eos ABS# 0.1 K/ul 02/28/2016 Cbc With Differential Ord2 Baso ABS# 0.0 K/ul 02/28/2016 C-Reactive Protein Qnt Crqnt CRP 0.1 mg/dl 02/28/2016 B12 Feg194 B12 >1500.00 pg/ml 01/11/2016 Vitamin D 25 Oh Mxp2556 VITAMIN D, 25 HYDROXY 45.94 ng/mL Comp Metabolic Qyl175 NA 136 mEq/L 03/21/2015 Comp Metabolic Dtp497 K 3.8 mEq/L 03/21/2015 Comp Metabolic Tnx949 CL 101 mEq/L 03/21/2015 Comp Metabolic Ybi189 CO2 31.0 mEq/L 03/21/2015 Comp Metabolic Gwi585 ANION GAP 8 03/21/2015 Comp Metabolic Ycs283 GLUCOSE 101 mg/dL 03/21/2015 Comp Metabolic Che907 Creat 0.7 mg/dL 03/21/2015 Comp Metabolic Dyb565 eGFR 94 ml/min/1.73m2 03/21/2015 Comp Metabolic Dqt255 BUN 13 mg/dL 03/21/2015 Comp Metabolic Mxe515 B/C Ratio 18.3 Ratio 03/21/2015 Comp Metabolic Qoe477 CALCIUM 9.3 mg/dL 03/21/2015 Comp Metabolic Lnj667 ALK PHOS 58 U/L 03/21/2015 Comp Metabolic Mik261 AST(SGOT) 18 U/L 03/21/2015 Comp Metabolic Zmk368 ALT(SGPT) 22 U/L 03/21/2015 Comp Metabolic Xfc487 BILI T 0.3 mg/dL 03/21/2015 Comp Metabolic Wgb619 ALBUMIN 4.4 g/dL 03/21/2015 Comp Metabolic Qkh709 TPRO 6.7 g/dL 03/21/2015 Comp Metabolic Cnl059 GLOB 2.3 g/dL 03/21/2015 Comp Metabolic Nfv565 A/G Ratio 1.9 Ratio 03/21/2015 Comp Metabolic Src562 Osmo 272 mOsmo 03/21/2015 Cbc With Differential Ord2 WBC 5.9 [...] Tsh Ord6 hTSH II 1.32 uIU/mL 03/21/2015 %Hba1C Muc895 % HbA1c 96693-0 5.4 % 03/21/2015 %Hba1C Kbj553 Gluc Ave 108 mg/dL 03/21/2015 URINALYSIS NONAUTO W/O SCOPE 13336 Specific [place] 1.025 DateTime(Free Text in Aprima) URINALYSIS NONAUTO W/O SCOPE 72256 PH 5.0 DateTime(Free Text in Aprima) URINALYSIS NONAUTO W/O SCOPE 53914 GLUCOSE NEG DateTime( Free Text in Aprima) URINALYSIS NONAUTO W/O SCOPE 14899 Protein NEG DateTime( Free Text in Aprima) URINALYSIS NONAUTO W/O SCOPE 36634 Blood NEG DateTime(Free Text in Aprima) URINALYSIS NONAUTO W/O SCOPE 62169 Bilirubin NEG DateTime(Free Text in Aprima) URINALYSIS NONAUTO W/O SCOPE 82486 Ketones NEG DateTime( Free Text in Aprima) URINALYSIS NONAUTO W/O SCOPE 46005 Urobilinogen NEG DateTime(Free Text in Aprima) URINALYSIS NONAUTO W/O SCOPE 54102 Nitrite NEG DateTime( Free Text in Aprima) URINALYSIS NONAUTO W/O SCOPE 73586 Leukocytes NEG DateTime(Free Text in Aprima) Review of Systems System Result Effective Dates Constitutional recent illness 04/05/2018 Constitutional No anorexia [...] developed 05/19/2013 None Full Exam - General 1995 Constitutional general appearance Overall: in no acute distress 05/19/2013 None Full Exam - General 1995 Constitutional general appearance Overall: well nourished 05/19/2013 None Full Exam - General 1995 Psychiatric orientation/consciousness Overall: oriented to person, place and time 05/19/2013 None Full Exam - General 1995 Constitutional general appearance Overall: well developed 05/16/2013 [...] tenderness 03/06/2013 None Full Exam - General 1995 Abdomen abdominal exam Overall: normal bowel sounds 03/06/2013 None Full Exam - General 1995 Musculoskeletal [...] sounds 12/26/2012 None Full Exam - General 1995 [...] clear 11/21/2012 None Full Exam - General 1994 Ears/Nose/Throat oral cavity/pharynx/larynx Overall: oropharyngeal mucosa clear 11/21/2012 None Full Exam - General 1994 Ears/Nose/Throat oral cavity/pharynx/larynx Overall: no masses 11/21/2012 None Full Exam - General 1994 Respiratory auscultation Overall: breath sounds clear bilaterally 11/21/2012 None Full Exam - General 1995 Respiratory respiratory effort/rhythm Overall: no retractions 11/21/2012 None Full Exam - General 1995 Respiratory respiratory effort/rhythm Overall: normal rate 11/21/2012 None Full Exam - General 1995 Cardiovascular auscultation of heart Overall: regular rate 11/21/2012 None Full Exam - General 1995 Constitutional general appearance Overall: well developed 07/21/2012 None Full Exam - General 1995 Constitutional general appearance Overall: in no acute distress 07/21/2012 None Full Exam - General 1995 Constitutional general appearance Overall: well nourished 07/21/2012 None Full Exam - General 1995 Psychiatric [...] of right foot Full Exam - General 1995 Musculoskeletal lower extremity ROM - foot: a [...] Procedure Codes Date THER/PROPH/DIAG INJ SC/IM CPT-4: 45498 04/05/2018 VITAMIN B12 INJECTION CPT-4: J3420 04/05/2018 THER/PROPH/DIAG INJ SC/IM CPT-4: 15825 03/10/2018 VITAMIN B12 INJECTION CPT-4: J3420 03/10/2018 THER/PROPH/DIAG INJ SC/IM CPT-4: 02494 10/19/2017 VITAMIN B12 INJECTION CPT-4: J3420 10/19/2017 URINALYSIS NONAUTO W/O SCOPE CPT-4: 64568 09/17/2017 THER/PROPH/DIAG INJ SC/IM CPT-4: 74186 08/19/2017 VITAMIN B12 INJECTION CPT-4: J3420 08/19/2017 THER/PROPH/DIAG INJ SC/IM CPT-4: 16594 07/06/2017 VITAMIN B12 INJECTION CPT-4: J3420 07/06/2017 THER/PROPH/DIAG INJ SC/IM CPT-4: 29827 04/27/2017 VITAMIN B12 INJECTION CPT-4: J3420 04/27/2017 THER/PROPH/DIAG INJ SC/IM CPT-4: 24065 11/17/2016 VITAMIN B12 INJECTION CPT-4: J3420 11/17/2016 THER/PROPH/DIAG INJ SC/IM CPT-4: 82720 10/12/2016 VITAMIN B12 INJECTION CPT-4: J3420 10/12/2016 THER/PROPH/DIAG INJ SC/IM CPT-4: 80072 09/11/2016 VITAMIN B12 INJECTION CPT-4: J3420 09/11/2016 THER/PROPH/DIAG INJ SC/IM CPT-4: 70345 07/03/2016 VITAMIN B12 INJECTION CPT-4: J3420 07/03/2016 VITAMIN B12 INJECTION CPT-4: J3420 04/20/2016 THER/PROPH/DIAG INJ SC/IM CPT-4: 46000 04/20/2016 ADMIN INFLUENZA VIRUS VAC CPT-4: G0008 03/17/2016 IIV4 FLU VACC NO PRESERV ID Formatting Model/CDA Sections, Assigned to/Kathy Lopez SNOMED CT: [id number] CPT-4: [id number] 03/17/2016 THER/PROPH/DIAG INJ SC/IM CPT-4: 46614 02/13/2016 VITAMIN B12 INJECTION CPT-4: J3420 02/13/2016 URINALYSIS NONAUTO W/O SCOPE CPT-4: 35335 12/10/2015 THER/PROPH/DIAG INJ SC/IM CPT-4: 61348 12/02/2015 VITAMIN B12 INJECTION CPT-4: J3420 12/02/2015 PNEUMOCOCCAL VACC [address]: [id number] CPT-4: 59275 12/02/2015 IMMUNIZATION ADMIN CPT -4: 85062 12/02/2015 THER/PROPH/DIAG INJ SC/IM CPT-4: 50537 10/29/2015 VITAMIN B12 INJECTION CPT-4: J3420 10/29/2015 THER/PROPH/DIAG INJ SC/IM CPT-4: 91355 06/10/2015 VITAMIN B12 INJECTION CPT-4: J3420 06/10/2015 THER/PROPH/DIAG INJ SC/IM CPT-4: 59844 02/15/2014 VITAMIN B12 INJECTION CPT-4: J3420 02/15/2014 TRIAMCINOLONE ACET INJ NOS CPT-4: J3301 01/15/2014 VITAMIN B12 INJECTION CPT-4: J3420 01/15/2014 THER/PROPH/DIAG INJ SC/IM CPT-4: 34191 12/04/2013 VITAMIN B12 INJECTION CPT-4: J3420 12/04/2013 THER/PROPH/DIAG INJ SC/IM CPT-4: 26625 07/24/2013 VITAMIN B12 INJECTION CPT-4: J3420 07/24/2013 PRESCRIP TRANSMIT VIA ERX SY CPT-4: G8553 06/12/2013 VITAMIN B12 INJECTION CPT-4: J3420 05/10/2013 THER/PROPH/DIAG INJ SC/IM CPT-4: 53822 05/10/2013 TRIAMCINOLONE ACET INJ NOS CPT-4: J3301 03/06/2013 PRESCRIP TRANSMIT VIA ERX SY CPT-4: G8553 03/06/2013 ADMIN INFLUENZA VIRUS VAC CPT-4: G0008 02/20/2013 FLULAVAL VACC, 3 YRS & >, IM CPT-4: Q2036 02/20/2013 THER/PROPH/DIAG INJ SC/IM CPT-4: 21715 02/20/2013 VITAMIN B12 INJECTION CPT-4: J3420 02/20/2013 THER/PROPH/DIAG INJ SC/IM CPT-4: 22052 12/26/2012 TRIAMCINOLONE ACET INJ NOS CPT-4: J3301 12/26/2012 THER/PROPH/DIAG INJ SC/IM CPT-4: 30946 12/21/2012 VITAMIN B12 INJECTION CPT-4: J3420 12/21/2012 THER/PROPH/DIAG INJ SC/IM CPT-4: 50426 11/16/2012 VITAMIN B12 INJECTION CPT-4: J3420 11/16/2012 TB INTRADERMAL TEST (includes injection fee) CPT-4: 26411 09/26/2012 THER/PROPH/DIAG INJ SC/IM CPT-4: 77828 09/12/2012 VITAMIN B12 INJECTION CPT-4: J3420 09/12/2012 TRIAMCINOLONE ACET INJ NOS CPT-4: J3301 08/11/2012 VITAMIN B12 INJECTION CPT-4: J3420 08/11/2012 THER/PROPH/DIAG INJ SC/IM CPT-4: 18282 08/11/2012 VITAMIN B12 INJECTION CPT-4: J3420 07/13/2012 THER/PROPH/DIAG INJ SC/IM CPT-4: 99561 07/13/2012 THER/PROPH/DIAG INJ SC/IM CPT-4: 08480 05/26/2012 TRIAMCINOLONE ACET INJ NOS CPT-4: J3301 05/26/2012 VITAMIN B12 INJECTION CPT-4: J3420 05/26/2012 ADMIN INFLUENZA VIRUS VAC CPT-4: G0008 03/02/2012 FLULAVAL VACC, 3 YRS & >, IM CPT-4: Q2036 03/02/2012 PRESCRIP TRANSMIT VIA ERX SY CPT-4: G8553 02/15/2012 TRIAMCINOLONE ACET INJ NOS CPT-4: J3301 01/13/2012 VITAMIN B12 INJECTION CPT-4: J3420 12/21/2011 VITAMIN B12 INJECTION CPT-4: J3420 10/30/2011 THER/PROPH/DIAG INJ SC/IM CPT-4: 02630 10/30/2011 THER/PROPH/DIAG INJ SC/IM CPT-4: 72327 10/02/2011 VITAMIN B12 INJECTION CPT-4: J3420 10/02/2011 TRIAMCINOLONE ACET INJ NOS CPT-4: J3301 10/02/2011 PRESCRIP TRANSMIT VIA ERX SY CPT-4: G8553 10/02/2011 VITAMIN B12 INJECTION CPT-4: J3420 09/01/2011 URINALYSIS NONAUTO W/O SCOPE CPT-4: 75055 08/03/2011 VITAMIN B12 INJECTION CPT-4: J3420 08/03/2011 THER/PROPH/DIAG INJ SC/IM CPT-4: 51511 08/03/2011 THER/PROPH/DIAG INJ SC/IM CPT-4: 34390 06/11/2011 VITAMIN B12 INJECTION CPT-4: J3420 06/11/2011 ROUTINE VENIPUNCTURE CPT-4: 91832 06/11/2011 THER/PROPH/DIAG INJ SC/IM CPT-4: 56499 02/23/2011 VITAMIN B12 INJECTION CPT-4: J3420 02/23/2011 ADMIN INFLUENZA VIRUS VAC CPT-4: G0008 02/23/2011 FLULAVAL VACC, 3 YRS & >, IM CPT-4: Q2036 02/23/2011 Vital Signs Date Vital 04/05/2018 Blood Pressure 1: 144/80 Code : 8480-6 BMI: 30.9 Code : 80865-6 Heart Rate 1 : 118 bpm Height: 5'9" SpO2: 98% Weight: 209 lbs 03/10/2018 Blood Pressure 1: 128/82 Code : 8480-6 Blood Pressure 1: 162/74 Code: 8480-6 BMI: 30.3 Code: 12978-0 Heart Rate 1: 101 bpm Height: 5'9" SpO2: 98% Weight: 205 lbs 01/13/2018 Blood Pressure 1: 102/78 Code : 8480-6 BMI: 31.6 Code : 33824-2 Heart Rate 1 : 103 bpm Height: 5'9" SpO2: 98% Weight: 214 lbs 11/25/2017 Blood Pressure 1: 114/80 Code : 8480-6 BMI: 30.3 Code : 34082-1 Heart Rate 1 : 112 bpm Height: 5'9" SpO2: 98% Weight: 205 lbs 10/19/2017 Blood Pressure 1: 110/70 Code : 8480-6 BMI: 30.7 Code : 46901-2 Heart Rate 1 : 102 bpm Height: 5'9" SpO2: 97% Weight: 208 lbs 09/17/2017 Blood Pressure 1: 132/78 Code : 8480-6 BMI: 30.4 Code : 72471-6 Heart Rate 1 : 117 bpm Height: 5'9" SpO2: 97% Weight: 206 lbs 09/06/2017 Blood Pressure 1: 110/78 Code : 8480-6 BMI: 29.8 Code : 70898-9 Heart Rate 1 : 106 bpm Height: 5'9" SpO2: 97% Weight: 202 lbs 08/19/2017 Blood Pressure 1: 136/72 Code : 8480-6 BMI: 30.4 Code : 74661-7 Heart Rate 1 : 108 bpm Height: 5'9" SpO2: 94% Weight: 206 lbs 07/06/2017 Blood Pressure 1: 154/80 Code : 8480-6 Heart Rate 1: 111 bpm Height: 5'9" Respiratory Rate: 20 bpm SpO2: 98% Weight: 04/27/2017 Blood Pressure 1: 138/78 Code : 8480-6 BMI: 30.4 Code : 77646-7 Heart Rate 1 : 96 bpm Height: 5'9" SpO2: 97% Weight: 206 lbs 04/06/2017 Blood Pressure 1: 108/80 Code : 8480-6 BMI: 31.0 Code : 84785-4 Heart Rate 1 : 96 bpm Height: 5'9" SpO2: 98% Weight: 210 lbs 02/25/2017 Blood Pressure 1: 132/80 Code : 8480-6 BMI: 32.5 Code : 66850-6 Heart Rate 1 : 112 bpm Height: 5'9" SpO2: 94% Weight: 220 lbs 01/19/2017 Blood Pressure 1: 122/68 Code : 8480-6 Heart Rate 1: 100 bpm Height: 5'9" SpO2: 95% Weight: 11/17/2016 Blood Pressure 1: 132/74 Code : 8480-6 BMI: 32.2 Code : 90924-7 Heart Rate 1 : 98 bpm Height: 5'9" SpO2: 94% Weight: 218 lbs 10/12/2016 Blood Pressure 1: 130/82 Code : 8480-6 BMI: 32.2 Code : 98408-3 Heart Rate 1 : 97 bpm Height: 5'9" SpO2: 94% Weight: 218 lbs 08/18/2016 Blood Pressure 1: 132/78 Code : 8480-6 BMI: 32.0 Code : 81851-5 Heart Rate 1 : 113 bpm Height: 5'9" SpO2: 98% Weight: 217 lbs 08/07/2016 Blood Pressure 1: 126/70 Code : 8480-6 BMI: 33.1 Code : 75230-2 Heart Rate 1 : 102 bpm Height: 5'9" SpO2: 94% Weight: 224 lbs 07/31/2016 Blood Pressure 1: 134/66 Code : 8480-6 BMI: 31.7 Code : 33287-6 Heart Rate 1 : 97 bpm Height: 5'9" SpO2: 95% Temperature: 36.4 (C) / 97.6 (F) Weight: 215 lbs 07/15/2016 Blood Pressure 1: 126/62 Code : 8480-6 Heart Rate 1: 105 bpm Height: 5'9" Weight: 07/07/2016 Blood Pressure 1: 106/54 Code : 8480-6 BMI: 31.7 Code : 72572-1 Heart Rate 1 : 93 bpm Height: 5'9" SpO2: 97% Weight: 215 lbs 06/25/2016 Heart Rate 1: 99 bpm Height: 5'9" SpO2: 95% Weight: 05/07/2016 Blood Pressure 1: 124/86 Code : 8480-6 BMI: 28.5 Code : 35487-2 Heart Rate 1 : 100 bpm Height: 5'9" SpO2: 96% Weight: 193 lbs 04/20/2016 Blood Pressure 1: 120/80 Code : 8480-6 BMI: 28.5 Code : 23477-1 Heart Rate 1 : 86 bpm Height: 5'9" SpO2: 96% Weight: 193 lbs 03/17/2016 Blood Pressure 1: 120/70 Code : 8480-6 BMI: 29.1 Code : 94323-3 Heart Rate 1 : 103 bpm Height: 5'9" SpO2: 96% Weight: 197 lbs 03/05/2016 Blood Pressure 1: 124/78 Code : 8480-6 Heart Rate 1: 82 bpm Height: 5'9" SpO2: 94% Weight: 02/28/2016 Blood Pressure 1: 94/50 Code : 8480-6 Heart Rate 1: 91 bpm Height: 5'9" SpO2: 94% Weight: 02/13/2016 Blood Pressure 1: 128/86 Code : 8480-6 BMI: 28.6 Code : 45799-9 Heart Rate 1 : 100 bpm Height: 5'9" SpO2: 96% Weight: 194 lbs 08/15/2015 Blood Pressure 1: 128/68 Code : 8480-6 BMI: 27.3 Code : 66710-9 Heart Rate 1 : 72 bpm Height: 5'9" SpO2: 92% Weight: 185 lbs 07/25/2015 Blood Pressure 1: 122/76 Code : 8480-6 BMI: 27.5 Code : 63704-5 Heart Rate 1 : 70 bpm Height: 5'9" SpO2: 94% Weight: 186 lbs 06/25/2015 Blood Pressure 1: 118/54 Code : 8480-6 BMI: 26.7 Code : 61844-9 Heart Rate 1 : 98 bpm Height: 5'9" SpO2: 97% Weight: 181 lbs 06/10/2015 Blood Pressure 1: 110/68 Code : 8480-6 Heart Rate 1: 80 bpm Height: SpO2: 98% Weight: 05/08/2015 Blood Pressure 1: 120/68 Code : 8480-6 BMI: 27.5 Code : 14758-3 Heart Rate 1 : 95 bpm Height: 5'9" SpO2: 96% Weight: 186 lbs 03/26/2015 Blood Pressure 1: 120/80 Code : 8480-6 Heart Rate 1: 102 bpm Respiratory Rate: 18 bpm SpO2: 92% Weight: 186 lbs 03/15/2015 Blood Pressure 1: 122/64 Code : 8480-6 BMI: 26.6 Code : 48724-6 Heart Rate 1 : 96 bpm Height: 5'9" SpO2: 96% Weight: 180 lbs 01/10/2015 Blood Pressure 1: 120/68 Code : 8480-6 BMI: 27.5 Code : 72055-3 Heart Rate 1 : 90 bpm Height: 5'9" Weight: 186 lbs 12/21/2014 Blood Pressure 1: 118/78 Code : 8480-6 BMI: 27.2 Code : 83064-8 Heart Rate 1 : 61 bpm Height: 5'9" SpO2: 97% Weight: 184 lbs 10/05/2014 Blood Pressure 1: 118/64 Code : 8480-6 BMI: 27.0 Code : 55569-3 Heart Rate 1 : 76 bpm Height: 5'9" Weight: 183 lbs 06/14/2014 Blood Pressure 1: 120/78 Code : 8480-6 BMI: 26.6 Code : 02800-3 Heart Rate 1 : 96 bpm Height: 5'9" Weight: 180 lbs 01/19/2014 Blood Pressure 1: 128/76 Code : 8480-6 BMI: 27.3 Code : 87946-9 Heart Rate 1 : 82 bpm Height: 5'9" Weight: 185 lbs 01/15/2014 Blood Pressure 1: 110/62 Code : 8480-6 BMI: 27.9 Code : 00312-9 Heart Rate 1 : 80 bpm Height: 5'9" Weight: 189 lbs 10/20/2013 Blood Pressure 1: 112/62 Code : 8480-6 BMI: 30.1 Code : 14661-0 Heart Rate 1 : 76 bpm Height: [...] Code : 8480-6 BMI: 30.6 Code : 86449-8 Heart Rate 1 : 92 bpm Height: 5'9" Weight: 207 lbs 05/23/2013 Blood Pressure 1: 120/78 Code : 8480-6 Heart Rate 1: 84 bpm Weight: 05/19/2013 Blood Pressure 1: 126/78 Code : 8480-6 BMI: 30.3 Code : 13997-0 Heart Rate 1 : 88 bpm Height: 5'9" Weight: 205 lbs 05/16/2013 Blood Pressure 1: 126/66 Code : 8480-6 BMI: 30.3 Code : 94016-8 Heart Rate 1 : 84 bpm Height: 5'9" Weight: 205 lbs 03/06/2013 Blood Pressure 1: 128/76 Code : 8480-6 BMI: 30.6 Code : 19418-6 Heart Rate 1 : 88 bpm Height: 5'9" Weight: 207 lbs 12/26/2012 Blood Pressure 1: 142/70 Code : 8480-6 BMI: 29.6 Code : 31290-8 Heart Rate 1 : 100 bpm Height: 5'9" Weight: 200 lbs 8 oz 11/21/2012 Blood Pressure 1: 132/80 Code : 8480-6 BMI: 29.5 Code : 44584-4 Heart Rate 1 : 96 bpm Height: [...] Code : 8480-6 BMI: 29.2 Code : 28511-4 Heart Rate 1 : 64 bpm Height: 5'9" Respiratory Rate: 16 bpm Weight: 198 lbs 03/11/2011 Blood Pressure 1: 106/60 Code : 8480-6 BMI: 28.8 Code : 38429-6 Heart Rate 1 : 100 bpm Height: 5'9" SpO2: 97% Weight: 195 lbs 02/12/2011 Weight: 192 lbs 01/29/2011 Blood Pressure 1: 100/64 Code : 8480-6 BMI: 28.1 Code : 55555-9 Heart Rate 1 : 100 bpm Height: 5'9" Respiratory Rate: 20 bpm Weight: 190 lbs 8 oz Functional Status No Functional Status data History of Present Illness Symptom Name Status Result Effective Date Notes pain, generalized Location diffusely 04/05/2018 None pain, [...] Hospital Follow Up _ pain 05/16/2013 left [id number] to left knee-applying neosporin and covering with [...] pt to have a study done at [employer] [id number] shortness of breath Triggers exertion 03/11/2011 None [...] 02/12/2011 and pt went to her chiropractor/ [employer] this week and was" worked on" and she has been feeling better shortness of breath Alleviating Factors rest 02/12/2011 pt states that her shortness of breath got better after her [employer] adjusted her pelvis gastroesophageal reflux Quality heartburn [...] Directive data Encounters Encounter Performer Location Codes ([id number]) 24307 EST. PATIENT, LEVEL IV Diagnosis: Essential (primary) hypertension[ICD10: I10] Diagnosis: Chronic pain syndrome[ICD10: G89.4] Diagnosis: Vitamin B12 deficiency anemia due to intrinsic factor deficiency[ ICD10: D51.0] Aicha Thompson MD, [facility] CPT-4: 22549 04/05/2018 ([id number]) 77004 EST. PATIENT, LEVEL IV Diagnosis: Essential (primary) hypertension[ICD10: I10] Diagnosis: Generalized anxiety disorder[ICD10: F41.1] Diagnosis: Major depressive disorder, recurrent, mild[ICD10: F33.0] Diagnosis: Vitamin B12 deficiency anemia due to intrinsic factor deficiency[ ICD10: D51.0] Valentina Thompson MD, [facility] CPT-4: 88728 03/10/2018 ([id number]) 21642 EST. PATIENT, LEVEL IV Diagnosis: Headache[ICD10: R51] Diagnosis: Obstructive sleep apnea (adult) (pediatric)[ICD10: G47.33] Diagnosis: Cervicalgia[ICD10: M54.2] Valentina Thompson MD, [facility] CPT-4: 85040 01/13/2018 ([id number]) 59161 EST. PATIENT, LEVEL IV Diagnosis: Headache[ICD10: R51] Diagnosis: Spinal stenosis, cervical region[ICD10: M48.02] Diagnosis: Major depressive disorder, recurrent, mild[ICD10: F33.0] Valentina Thompson MD , [facility] CPT-4: 54294 11/25/2017 ([id number]) 56963 EST. PATIENT, LEVEL III Diagnosis: Allergic contact dermatitis due to plants, except food[ICD10: L23.7] Diagnosis: Vitamin B12 deficiency anemia due to intrinsic factor deficiency[ ICD10: D51.0] Valentina Thompson MD, [facility] CPT-4: 43069 10/19/2017 ([id number]) 76720 EST. PATIENT, LEVEL IV Diagnosis: Generalized abdominal pain[ICD10: R10.84] Diagnosis: Urinary tract infection, site not specified[ICD10: N39.0] Diagnosis: Hypokalemia[ICD10: E87.6] Valentina Thompson MD, [facility] CPT-4: 16627 09/17/2017 ([id number]) 68901 EST. PATIENT, LEVEL IV Diagnosis: Chronic pain syndrome[ICD10: G89.4] Diagnosis: Pain in left knee[ICD10: M25.562] Diagnosis: Pain in right knee[ICD10: M25.561] Diagnosis: Essential (primary) hypertension[ICD10: I10] Aicha Thompson MD, [facility] CPT-4: 36200 09/06/2017 ([id number]) 88507 EST. PATIENT, LEVEL IV Diagnosis: Headache[ICD10: R51] Diagnosis: Chronic pain syndrome[ICD10: G89.4] Diagnosis: Mixed hyperlipidemia[ICD10: E78.2] Diagnosis: Vitamin D deficiency, unspecified[ICD10: E55.9] Diagnosis: Vitamin B12 deficiency anemia, unspecified[ICD10: D51.9] Valentina Thompson MD , [facility] CPT-4: 05756 08/19/2017 28233 EST. PATIENT, LEVEL V Diagnosis: Essential (primary) hypertension[ICD10: I10] Diagnosis: Vitamin B12 deficiency anemia due to intrinsic factor deficiency[ ICD10: D51.0] Diagnosis: Chronic pain syndrome[ICD10: G89.4] Aicha Thompson MD, [facility] CPT-4: 78872 07/06/2017 ([id number]) 25162 EST. PATIENT, LEVEL IV Diagnosis: Cervicalgia[ICD10: M54.2] Diagnosis: Laceration without foreign body of scalp, initial encounter[ICD10: S01.01XA] Diagnosis: Vitamin B12 deficiency anemia due to intrinsic factor deficiency[ ICD10: D51.0] Valentina Thompson MD, [facility] CPT-4: 79832 04/27/2017 31195 EST. PATIENT, LEVEL II Diagnosis: Residual hemorrhoidal skin tags[ICD10: K64.4] Valentina Thompson MD, [facility] CPT-4: 93398 04/06/2017 ([id number]) 59528 EST. PATIENT, LEVEL III Diagnosis: Pain in right foot[ICD10: M79.671] Diagnosis: Pain in left foot[ICD10: M79.672] Diagnosis: Cervicalgia[ICD10: M54.2] Valentina Thompson MD, [facility] CPT-4: 97511 02/25/2017 ([id number]) 39786 EST. PATIENT, LEVEL IV Diagnosis: Essential (primary) hypertension[ICD10: I10] Diagnosis: Chronic pain syndrome[ICD10: G89.4] Diagnosis: Spinal stenosis, cervical region[ICD10: M48.02] Diagnosis: Pain in right leg[ICD10: M79.604] Valentina Thompson MD, [facility] CPT-4: 69093 01/19/2017 ([id number]) 08130 EST. PATIENT, LEVEL III Diagnosis: Pain in right foot[ICD10: M79.671] Diagnosis: Pain in left foot[ICD10: M79.672] Diagnosis: Chronic pain syndrome[ICD10: G89.4] Diagnosis: Vitamin B12 deficiency anemia, unspecified[ICD10: D51.9] Valentina Thompson MD , [facility] CPT-4: 21048 11/17/2016 ([id number]) 83113 EST. PATIENT, LEVEL IV Diagnosis: Essential (primary) hypertension[ICD10: I10] Diagnosis: Chronic pain syndrome[ICD10: G89.4] Diagnosis: Foot drop, right foot[ICD10: M21.371] Diagnosis: Foot drop, left foot[ICD10: M21.372] Diagnosis: Other abnormalities of gait and mobility[ICD10: R26.89] Diagnosis: Vitamin B12 deficiency anemia due to intrinsic factor deficiency[ ICD10: D51.0] Aicha Thompson MD, [facility] CPT-4: 84859 10/12/2016 ([id number]) 21298 EST. PATIENT, LEVEL III Diagnosis: Pain in right ankle and joints of right foot[ICD10: M25.571] Diagnosis: Superficial foreign body, right foot, initial encounter[ICD10: S90.851A] Valentina Thompson MD, [facility] CPT-4: 57108 ([id number]) 04612 EST. PATIENT, LEVEL III Diagnosis: Candidiasis of vulva and vagina[ICD10: B37.3] Diagnosis: Vitamin B12 deficiency anemia, unspecified[ICD10: D51.9] Valentina Thompson MD , [facility] CPT-4: 51471 08/07/2016 ([id number]) 01330 EST. PATIENT, LEVEL III Diagnosis: Spinal stenosis, cervical region[ICD10: M48.02] Diagnosis: Pain in right ankle and joints of right foot[ICD10: M25.571] Diagnosis: Pain in left ankle and joints of left foot[ICD10: M25.572] Valentina Thompson MD, [facility] CPT-4: 89583 07/31/2016 78176 EST. PATIENT, LEVEL III Diagnosis: Cervicalgia[ICD10: M54.2] Diagnosis: Chronic pain syndrome[ICD10: G89.4] Beatriz Thompson MD, [facility] CPT-4: 20070 07/15/2016 ([id number]) 23548 EST. PATIENT, LEVEL III Diagnosis: Spinal stenosis, cervical region[ICD10: M48.02] Diagnosis: Low back pain[ICD10: M54.5] Valentina Thompson MD, [facility] CPT-4: 34897 07/07/2016 ([id number]) 07837 EST. PATIENT, LEVEL IV Diagnosis: Cervicalgia[ICD10: M54.2] Diagnosis: Essential (primary) hypertension[ICD10: I10] Diagnosis: Mixed hyperlipidemia[ICD10: E78.2] Aicha Thompson MD, [facility] CPT-4: 62808 06/25/2016 ([id number]) 06768 EST. PATIENT, LEVEL III Diagnosis: Cervicalgia[ICD10: M54.2] Valentina Thompson MD, [facility] CPT-4: 97180 05/07/2016 ([id number]) 81127 EST. PATIENT, LEVEL III Diagnosis: Pleurodynia[ICD10: R07.81] Diagnosis: Generalized anxiety disorder[ICD10: F41.1] Diagnosis: Vitamin B12 deficiency anemia due to intrinsic factor deficiency[ ICD10: D51.0] Diagnosis: Hypoxemia[ICD10: R09.02] Valentina Thompson MD, [facility] CPT-4: 70849 04/20/2016 ([id number]) 55862 EST. PATIENT, LEVEL III Diagnosis: Generalized anxiety disorder[ICD10: F41.1] Diagnosis: Radiculopathy, lumbar region[ICD10: M54.16] Valentina Thompson MD, [facility] CPT-4: 33256 03/17/2016 71266 EST. PATIENT, LEVEL IV Diagnosis: Chronic pain syndrome[ICD10: G89.4] Diagnosis: Radiculopathy, lumbar region[ICD10: M54.16] Diagnosis: Generalized anxiety disorder[ICD10: F41.1] Beatriz Thompson MD, [facility] CPT-4: 73812 03/05/2016 ([id number] 63059 EST. PATIENT, LEVEL III Diagnosis: Radiculopathy, lumbar region[ICD10: M54.16] Diagnosis: Generalized anxiety disorder[ICD10: F41.1] Valentina Thompson MD, [facility] CPT-4: 25816 02/28/2016 ([id number]) 09700 EST. 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 PATIENT, LEVEL III Diagnosis: Headache[ICD10: R51] Diagnosis: Cervicalgia[ICD10: M54.2] Valentina Thompson MD, [facility] CPT-4: 46150 08/15/2015 ([id number]) 49456 EST. PATIENT, LEVEL III Diagnosis: Generalized anxiety disorder[ICD10: F41.1] Diagnosis: Cervicalgia[ICD10: M54.2] Valentina Thompson MD, [facility] CPT-4: 87102 07/25/2015 ([id number]) 10003 EST. PATIENT, LEVEL IV Diagnosis: Pain in right foot[ICD10: M79.671] Diagnosis: Unspecified osteoarthritis, unspecified site[ICD10: M19.90] Diagnosis: Pain in left ankle and joints of left foot[ICD10: M25.572] Diagnosis: Pain in right ankle and joints of right foot[ICD10: M25.571] Valentina Thompson MD, [facility] CPT-4: 59284 06/25/2015 ([id number]) 30829 EST. 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 PATIENT, LEVEL IV Diagnosis: Essential (primary) hypertension[ICD10: I10] Diagnosis: Pain in right foot[ICD10: M79.671] Diagnosis: Pain in left foot[ICD10: M79.672] Diagnosis: Anxiety disorder, unspecified[ICD10: F41.9] Aicha Thompson MD, [facility] CPT-4: 92486 05/08/2015 ([id number]) 91734 EST. PATIENT, LEVEL III Diagnosis: Generalized anxiety disorder[ICD10: F41.1] Diagnosis: Essential (primary) hypertension[ICD10: I10] Diagnosis: Other myositis, multiple sites[ICD10: M60.89] Valentina Thompson MD, [facility] CPT-4: 75376 03/26/2015 [id number] EST. PATIENT, LEVEL III Diagnosis: Chronic pain syndrome[ICD10: G89.4] Diagnosis: Unspecified osteoarthritis, unspecified site[ICD10: M19.90] Diagnosis: Pain in right foot[ICD10: M79.671] Diagnosis: Pain in left foot[ICD10: M79.672] Beatriz Thompson MD, [facility] CPT -4: 51228 03/15/2015 ([id number]) 93957 EST. PATIENT, LEVEL III Diagnosis: Abrasion of knee, left[ICD9: 916.0] Valentina Thompson MD, [facility] CPT-4: 41810 01/10/2015 ([id number]) 67716 EST. PATIENT, LEVEL IV Diagnosis: CHRONIC PAIN SYNDROME[ICD9: 338.4] Diagnosis: MYALGIA AND MYOSITIS[ICD9: 729.1] Diagnosis: OSTEOARTH NOS-UNSPEC[ICD9: 715.90] Diagnosis: DEPRESSIVE DISORDER NEC[ICD9: 311] Diagnosis: GENERALIZED ANXIETY DISEASE[ICD9: 300.02] Valentina Thompson MD, [facility] CPT-4: 16042 12/21/2014 ([id number]) [id number] EST. PATIENT, LEVEL IV Diagnosis: GENERALIZED ANXIETY DISEASE[ICD9: 300.02] Diagnosis: DEPRESSIVE DISORDER NEC[ICD9: 311] Diagnosis: ESSENTIAL HYPERTENSION[ICD9: 401.9] Valentina Thompson MD, [facility] CPT-4: 92926 10/05/2014 ([id number]) 36873 EST. PATIENT, LEVEL III Diagnosis: Knee pain, right[ICD9: 719.46] Diagnosis: CHRONIC PAIN SYNDROME[ICD9: 338.4] Diagnosis: Ankle pain[ICD9: 719.47] Aicha Thompson MD, [facility] CPT-4: 33013 06/14/2014 ([id number]) 26272 EST. PATIENT, LEVEL III Diagnosis: Constipation[ICD9: 564.00] Diagnosis: Hemorrhoids[ICD9: 455.6] Valentina Thompson MD, [facility] CPT-4: 41230 01/19/2014 ([id number]) 19320 EST. PATIENT, LEVEL III Diagnosis: Ulcer of knee[ICD9: 707.19] Diagnosis: Hemorrhoids[ICD9: 455.6] Diagnosis: B12 deficiency[ICD9: 266.2] Diagnosis: ALLERGIC RHINITIS[ICD9: 477.9] Valentina Thompson MD, [facility] CPT-4: 13278 01/15/2014 ([id number]) 46136 EST. PATIENT, LEVEL IV Diagnosis: EDEMA[ICD9: 782.3] Diagnosis: Open wound of knee[ICD9: 891.0] Diagnosis: CHRONIC PAIN SYNDROME[ICD9: 338.4] Diagnosis: ANEMIA[ICD9: 285.9] Valentina Thompson MD, [facility] CPT-4: 35838 10/20/2013 ([id number]) 07238 EST. PATIENT, LEVEL III Diagnosis: ULCER OTH PART LOW LIMB[ICD9: 707.19] Valentina Thompson MD, [facility] CPT-4: 85722 07/24/2013 ([id number]) 15243 EST. PATIENT, LEVEL III Diagnosis: ULCER OTH PART LOW LIMB[ICD9: 707.19] Valentina Thompson MD [facility] CPT-4: 42203 06/23/2013 ([id number]) 41721 EST. PATIENT, LEVEL III Diagnosis: ULCER OTH PART LOW LIMB[ICD9: 707.19] Valentina Thompson MD [facility] CPT-4: 68751 06/12/2013 ([id number]) Miscellaneous no charge Diagnosis: ULCER OTH PART LOW LIMB[ICD9: 707.19] Valentina Thompson MD [facility] CPT-4: 74184 05/29/2013 ([id number]) 64225 EST. PATIENT, LEVEL III Diagnosis: ULCER OTH PART LOW LIMB[ICD9: 707.19] Valentina Thompson MD [facility] CPT-4: 70480 05/23/2013 ([id number]) Miscellaneous no charge Diagnosis: ULCER OTH PART LOW LIMB[ICD9: 707.19] Valentina Thompson MD [facility] CPT-4: 13198 05/19/2013 ([id number]) 21876 EST. PATIENT, LEVEL III Diagnosis: Ulcer of knee[ICD9: 707.19] Valentina Thompson MD [facility] CPT-4: 08555 05/16/2013 ([id number]) 11027 EST. PATIENT, LEVEL III Diagnosis: ALLERGIC RHINITIS[ICD9: 477.9] Aicha Thompson MD [facility] CPT- 4: 21137 03/06/2013 ([id number]) 08005 EST. PATIENT, LEVEL IV Diagnosis: Ankle pain[ICD9: 719.47] Diagnosis: ALLERGIC RHINITIS[ICD9: 477.9] Diagnosis: ESSENTIAL HYPERTENSION[SNOMED: 45714389] Aicha Thompson MD [facility] CPT-4: 01007 12/26/2012 ([id number]) 76360 EST. PATIENT, LEVEL IV Diagnosis: ESSENTIAL HYPERTENSION[SNOMED: 22809242] Diagnosis: JOINT PAIN-L/LEG[ICD9: 719.46] Diagnosis: GENERALIZED ANXIETY DISEASE[ICD9: 300.02] Diagnosis: UNSPECIFIED ASTHMA[ICD9: 493.90] Aicha Thompson MD, [facility] CPT-4: 72216 11/21/2012 ([id number]) Miscellaneous no charge Diagnosis: Encounter for tuberculin skin test[ICD9: V74.1] Aicha Thompson MD, [facility] CPT-4: 19784 09/28/2012 ([id number]) 08435 EST. PATIENT, LEVEL IV Diagnosis: FEVER NOS[ICD9: 780.60] Diagnosis: PNEUMONIA (CAP)[ICD9: 486] Aicha Thompson MD, [facility] CPT- 4: 08761 07/21/2012 ([id number]) 69862 EST. PATIENT, LEVEL IV Diagnosis: JOINT PAIN-ANKLE[ICD9: 719.47] Diagnosis: MUSCLE/LIGAMENT DIS NEC[ICD9: 728.89] Diagnosis: Fibromyalgia muscle pain[ICD9: 729.1] Aicha Thompson MD, [facility] CPT-4: 67877 07/13/2012 ([id number]) 82585 EST. PATIENT, LEVEL IV Diagnosis: Right foot pain[ICD9: 729.5] Diagnosis: Plantar fasciitis[ICD9: 728.71] Diagnosis: GENERALIZED ANXIETY DISEASE[ICD9: 300.02] Diagnosis: B-COMPLEX DEFIC NEC[ICD9: 266.2] Aicha Thompson MD, [facility] CPT-4: 27361 05/26/2012 ([id number]) 90496 EST. PATIENT, LEVEL IV Diagnosis: Chest wall pain[ICD9: 786.52] Diagnosis: Esophageal reflux[ICD9: 530.81] Diagnosis: ALLERGIC RHINITIS[ICD9: 477.9] Valentina Thompson MD, [facility] CPT-4: 80838 02/15/2012 ([id number]) 99806 EST. PATIENT, LEVEL IV Diagnosis: ALLERGIC RHINITIS[ICD9: 477.9] Diagnosis: HYPERLIPIDEMIA[ICD9: 272.4] Aicha Thompson MD, [facility] CPT- 4: 39698 01/13/2012 ([id number]) 57139 EST. PATIENT, LEVEL IV Diagnosis: JOINT PAIN-L/LEG[ICD9: 719.46] Diagnosis: UNSPECIFIED ASTHMA[ICD9: 493.90] Diagnosis: Costalchondritis[ICD9: 733.6] Aicha Thompson MD, [facility] CPT- 4: 88168 12/21/2011 ([id number]) 66556 EST. PATIENT, LEVEL IV Diagnosis: Hyperlipidemia[ICD9: 272.4] Diagnosis: ALLERGIC RHINITIS[ICD9: 477.9] Diagnosis: B12 deficiency[ICD9: 266.2] Diagnosis: Hypopotassemia[ICD9: 276.8] Valentina Thompson MD, [facility] CPT-4: 51333 10/02/2011 ([id number]) 65342 EST. PATIENT, LEVEL IV Diagnosis: Pain in joint involving forearm[ICD9: 719.43] Diagnosis: Neck pain[ICD9: 723.1] Diagnosis: Fall on same level from slipping, tripping, or stumbling[ICD9: E885.9 ] Diagnosis: B12 deficiency[ICD9: 266.2] Aicha Thompson MD, [facility] CPT- 4: 99279 09/01/2011 ([id number]) 25349 EST. PATIENT, LEVEL IV Diagnosis: Vulvovaginitis[ICD9: 616.10] Diagnosis: OVERWEIGHT[ICD9: 278.02] Diagnosis: MYALGIA AND MYOSITIS[ICD9: 729.1] Aicha Thompson MD, [facility] CPT-4: 68082 08/03/2011 ([id number]) 39132 EST. PATIENT, LEVEL IV Diagnosis: MUSCLE/LIGAMENT DIS NEC[ICD9: 728.89] Diagnosis: CHRONIC PAIN SYNDROME[ICD9: 338.4] Diagnosis: Weight gain[ICD9: 783.1] Aicha Thompson MD, [facility] CPT-4: 37426 06/29/2011 97120 EST. PATIENT, LEVEL IV Diagnosis: Wrist pain[ICD9: 719.43] Diagnosis: Knee pain, right[ICD9: 719.46] Diagnosis: Fall on same level from slipping, tripping, or stumbling[ICD9: E885.9 ] Aicha Thompson MD, [facility] CPT-4: 86569 06/22/2011 98042 EST. PATIENT, LEVEL IV Diagnosis: MUSCLE/LIGAMENT DIS NEC[ICD9: 728.89] Diagnosis: JOINT PAIN-L/LEG[ICD9: 719.46] Diagnosis: OSTEOARTH NOS-UNSPEC[ICD9: 715.90] Diagnosis: B12 deficiency[ICD9: 266.2] Aicha Thompson MD, [facility] CPT- 4: 15486 06/11/2011 66209 EST. 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 PATIENT, LEVEL IV Diagnosis: Knee pain, bilateral[ICD9: 719.46] Diagnosis: Iliotibial band syndrome[ICD9: 728.89] Diagnosis: Fibromyalgia syndrome[ICD9: 729.1] Aicha Thompson MD, [facility] CPT-4: 97418 02/12/2011 86450 EST. PATIENT, LEVEL IV Diagnosis: FALL FROM SLIPPING[ICD9: E885.9] Diagnosis: Pain in joint involving lower leg[ICD9: 719.46] Diagnosis: ESOPHAGEAL REFLUX[ICD9: 530.81] Diagnosis: ESSENTIAL HYPERTENSION[SNOMED: 47590257] Aicha Thompson MD, [facility] CPT-4: 67397 01/29/2011 Plan of Care Planned Activity Notes Codes Status Date Appointment: [phone] [place] (15 min) Moderate 04/18/2018 Visit Plan: [...] , and understands the consequences of over-medication. Tamitha [...] the hydrocodone. 04/05/2018 Appointment: Aicha Thompson WPtel: [facility]5 [facility] (30 min) Complex 04/05/2018 Patient Education: Patient Medication Summary Completed 04/05/2018 Appointment: Aicha Thompson WPtel: [facility] (15 min) Moderate 03/17/2018 Visit Plan: Hypertension [...] 2 weeks 03/10/2018 Appointment: Valentina Smith WPtel: [phone] [phone] (15 min) Moderate 03/10/2018 Appointment: Aicha Thompson WPtel: [address] [facility] (15 min) Moderate 03/10/2018 Patient Education: Patient Medication Summary Completed 03/10/2018 Patient Education: Depression Completed 03/10/2018 Visit Plan: Headaches-patient is not wearing her CPAP and i suspect this may be contributing to her headaches-will contact [facility] for a new sleep study Neck pain -spinal stenosis - has attempted to contact patient with no response from [facility]-I have instructed her to call them and get appt scheduled 01/13/2018 Appointment: Valentina Smith WPtel: [address] [phone] (15 min) Moderate 01/13/2018 Patient Education: Patient [...] current medications. 11/25/2017 Appointment: Valentina Smith WPtel: [phone] [place] (30 min) Complex 11/25/2017 Patient Education: Patient Medication Summary Completed 11/25/2017 Visit Plan: Contact dermatitis-discussed natural and expected course of this diagnosis and to alert me if symptoms do not resolve or if any worse. RX sent to patient's pharmacy and instructed on use. 10/19/2017 Appointment: Valentina Smith WPtel: [phone] [phone] (15 min) Moderate 10/19/2017 Patient Education: Patient Medication Summary Completed 10/19/2017 Appointment: Valentina Smith WPtel: [phone] (30 min) Complex 09/27/2017 Visit Plan: Generalized abd sgwq-JTG-rgupcz cipro/flagyl- culture urine-recommend patient follow up with Dr Grace for an appt if abdominal pain does not improve Low potassium-check labs 09/17/2017 Visit Plan: Generalized abd cawo-ORF-aqqhyl cipro/flagyl- culture urine-recommend patient follow up with Dr Grace for an appt if abdominal pain does not improve Low potassium-check labs 09/17/2017 Appointment: [phone] (30 min) Complex 09/17/2017 Patient Education: [...] of over-medication. 09/06/2017 Appointment: [facility] Thompson [facility] ([facility] min) Complex 09/06/2017 Patient Education: Patient Medication Summary Completed 09/06/2017 Appointment: Aich[facility] Thompson [facility]Ptel: [facility] (30 min) Complex 09/02/2017 Appointment: Aicha Thompson WPtel: [facility] (30 min) Complex 08/23/2017 Visit Plan: Headaches-neck pain-patient is to let us know which neurologist she wants to see B12 def-injection today in the office Hyperlipidemia-check labs Vitamin D def-check level 08/19/2017 Appointment: Valentina Smith [facility]Ptel[phone] (30 min) Complex 08/19/2017 Patient Education: [...] the list of the neurologists that her transit operations supervisor has recommended and we would consider a referral to a different provider. After I left the room insisting to Angélicamable that I had spent as much time [...] the list of the neurologists that her transit operations supervisor has recommended and we would consider [...] psychiatrist. 07/06/2017 Appointment: [facility] Thompson [phone] (30 min) Complex 07/06/2017 Patient Education: Patient Medication Summary Completed 07/06/2017 Appointment: [phone] [place] (30 min) Complex 07/05/2017 Appointment: [phone] [place] (30 min) Complex 05/17/2017 Appointment: Beat[facility] Moj[facility] [place] (30 min) Complex 05/14/2017 Visit Plan: Neck lhrf-poybxgu-tipozhg to continue f/u with [facility]-her symptoms have [...] of plan. 04/27/2017 Appointment: Valentina Smith WPtel: [address] [place], [place] [phone] (30 min) Complex 04/27/2017 Patient Education: Patient Medication Summary Completed 04/27/2017 Patient Education: Obesity Completed 04/27/2017 Visit Plan: Hemorrhoidal skin tag-no acute inflammation today -may use hemorrhoid cream as directed as needed-call with any concerns, bleeding, etc. 04/06/2017 Appointment: Valentina Smith WPtel: [address] [place], [place] [phone] (30 min) Complex 04/06/2017 Patient Education: Patient Medication Summary Completed 04/06/2017 Patient Education: Obesity Completed 04/06/2017 Visit Plan: Bilateral foot and ankle pain-now has AFOs-we have made her several appt with podiatrists which she has not kept-recommend patient call Dr Saunders and reschedule appt with him. Neck pain-[facility] appt next week-KEEP APPOINTMENT! 02/25/2017 Appointment: Valentina Smith WPtel: [address] [place], [place] [phone] (30 min) Complex 02/25/2017 Patient Education: Patient [...] podiatry for evaluation-wants to see someone in [place] 11/17/2016 Appointment: Valentina Smith WPtel: [phone] (30 min) Complex 11/17/2016 Patient Education: Patient Medication Summary Completed 11/17/2016 Appointment: Valentina Smith WPtel: [phone] [phone] (30 min) Complex 11/16/2016 Visit Plan: [place] referral - pt to indicate when and who she would like to go to - for neck and back AFO for both legs - [facility] in [place], [place]- fax #[phone] pt has been seen by industry segment specialist - need brace because of bilateral [...] over- medication. 10/12/2016 Appointment: Aicha Thompson WPtel: [facility] [place] (30 min) Complex 10/12/2016 Patient Education: Patient Medication Summary Completed 10/12/2016 Patient Education: Obesity Completed 10/12/2016 Appointment: Injection 09/11/2016 Patient Education: Patient Medication Summary Completed 09/11/2016 Visit Plan: Right ankle pain/instability-xray negative- will obtain MRI ankle Ulcer right foot-instructed patient on wound care and the importance of keeping wound clean-f/u in 10-14 days for re-evaluation 08/18/2016 Appointment: Valentina Smith WPtel: [phone] (30 min) Complex 08/18/2016 Patient Education: Patient Medication Summary Completed 08/18/2016 Patient Education: Obesity Completed 08/18/2016 Care Plan: X-RAY EXAM NECK SPINE 2-3 VW LOINC : 48121-8 Pending 08/15/2016 Visit Plan: Vaginal yeast infection-RX for diflucan B12 deficiency-check labs 08/07/2016 Appointment: Valentina Smith WPtel: [phone] (30 min) Complex 08/07/2016 Patient Education: Patient Medication Summary Completed 08/07/2016 Visit Plan: Cervical stenosis-saw Dr Ramey-Dr Ramey is going to send her to for further evaluation Bilateral ankle pain-xray ankles 07/31/2016 Appointment: Valentina Smith WPtel: [phone] [place] (30 min) Complex 07/31/2016 Patient Education: Patient Medication Summary Completed 07/31/2016 Patient Education: Obesity Completed 07/31/2016 Visit Plan: Neck pain after fall - Will check x-ray, Pt is to follow up with Dr. Perez. Pt is to notify clinic if symptoms do not improve , if they worsen, or with any questions or concerns. 07/15/2016 Appointment: Beatriz Mojica [facility]Ptel[facility] [place] (30 min) Complex 07/15/2016 Patient [...] Appointment: Injection 07/03/2016 Appointment: Valentina Smith WPtel: [phone] (30 min) Complex 07/03/2016 Patient Education: [...] PT. 05/07/2016 Appointment: [phone] (30 min) Complex 05/07/2016 Patient Education: Patient Medication Summary Completed 05/07/2016 Patient Education: Obesity Completed 05/07/2016 Care Plan: MRI NECK SPINE W/O DYE LOINC : 72973-5 Pending 05/07/2016 Visit Plan: Chronic Depression and [...] monitor symptoms 04/20/2016 Appointment: Valentina Smith WPtel: [phone] (30 min) Complex 04/20/2016 Patient Education: Patient Medication Summary Completed 04/20/2016 Appointment: Valentina Smith [facility]Ptel: [phone] (30 min) Complex 03/19/2016 Visit Plan: [...] Dr Ibarra 03/17/2016 Appointment: Valentina Smith WPtel: [phone] (30 min) Complex 03/17/2016 Patient Education: [...] current medications. 02/28/2016 Appointment: Valentina Smith WPtel: [address] [place] [address] (15 min) Moderate 02/28/2016 Patient Education: Patient Medication Summary Completed 02/28/2016 Appointment: Valentina Smith WPtel: [address] [place] [address] (30 min) Complex 02/27/2016 Visit Plan: Hypertension [...] d level 02/13/2016 Appointment: Valentina Smith WPtel: [facility] [address] (30 min) Complex 02/13/2016 Patient Education: Patient Medication Summary Completed 02/13/2016 Patient Education: Obesity Completed 02/13/2016 Care Plan: Tsh Pending 02/13/2016 Care Plan: Lipid Pending 02/13/2016 Care Plan: Comp Metabolic patient to come fasting Pending 02/13/2016 Care Plan: Vitamin D 25 Oh Cancelled 02/13/2016 Care Plan: Cbc With Differential Pending 02/13/2016 Patient Education: Patient Medication Summary Completed 02/03/2016 Care Plan: SCREENINGMAMMOGRAPHYDIGITAL LOINC : 14178-7 Pending 02/03/2016 Appointment: Injection 01/15/2016 Appointment: Lab [...] EXAM NECK SPINE 2-3 VW LOINC : 64251-9 Ordered 08/15/2015 Visit Plan: Anxiety-fairly well controlled-does [...] side effects. 05/08/2015 Appointment: Aicha Thompson WPtel: [facility] (30 min) Complex 05/08/2015 Patient Education: Patient [...] Care Plan: COMPLETE CBC AUTOMATED LOINC : 59362-4 Ordered 10/05/2014 Visit Plan: Chronic Pain Syndrome - pt has chronic pain - has been maintained on current medications, has not sought out other medications , only uses PRN pain medications as directed, and understands the consequences of over-medication. Right hip/knee/ankle pain-improving since last fall- continue physical therapy exercises-continue supportive shoes and use walker for stability 06/14/2014 Appointment: Valentina Smith WPtel: [address] [place], [place] [phone] [place] [address] Follow up 06/14/2014 Patient Education: Patient Medication [...] the instructions given to her from her farmworker fur and she is to call him if her constipation is uncontrolled. Hemorrhoids-use suppositories as directed. 01/19/2014 Patient Education: Patient Medication Summary Completed 01/19/2014 Visit Plan: Ulcer of iscq-fkjwryt-isaki instructions provided today and instructed patient to return as directed-keep wound clean and dry. Hemorrhoids-refill anusol suppositories and use as directed B12 deficiency-b12 injection today in the office Sojufgkpt-qrdeilmwhhqn-jmoykgh injection today in the office-continue oral medications [...] Anemia-check labs 10/20/2013 Appointment: Valentina Smith WPtel: [address] [place], [place] [phone] [place] Other 10/20/2013 Patient Education: Patient Medication Summary Completed 10/20/2013 Appointment: Valentina Smith WPtel: [address] [place], [place] [phone] [place] Injection 08/21/2013 Appointment: Aicha Thompson WPtel: [address] [place], [place] [phone] Follow up 07/31/2013 Visit Plan: Ulcer of knee healing-silver nitrate to granulation tissue-instructed patient to monitor and call if it does not completely heal for appointment-instructed on wound care-patient and mother verbalized understanding of plan. 07/24/2013 Patient Education: Patient Medication Summary Completed 07/24/2013 Patient Education: Patient Medication Summary Completed 07/24/2013 Appointment: Valentina Smith WPtel: [address] [place], [place] [phone] Follow up 07/03/2013 Visit Plan: Ulcer-left knee-fibrous tissue removed from wound bed to reveal pink granulation tissue-wound cleansed and dressing applied. Instructed patient on wound care. Return in 10 days for follow up. 06/23/2013 Appointment: Valentina Smith WPtel: [address] [place], [place] [phone] Follow up 06/23/2013 Patient Education: Patient Medication Summary Completed 06/23/2013 Appointment: Valentina Smith WPtel: [address] [place], [place] [phone] Follow up 06/22/2013 Appointment: Aicha Thompson WPtel: [address] [place], [place] [phone] Follow up 06/22/2013 Visit Plan: Ulcer-left knee-fibrous tissue removed from wound bed to reveal pink granulation tissue-wound cleansed and dressing applied. Instructed patient on wound care. Return in 10 days for follow up. 06/12/2013 Appointment: Valetnina Smith WPtel: [address] [place], [place] [phone] [place] Follow up 06/12/2013 Patient Education: Patient Medication Summary Completed 06/12/2013 Appointment: Aicha Thompson WPtel: [address] [place], [place] [phone] Follow up 06/08/2013 Visit Plan: Ulcer left igzw-bihumwyo-k/u in 10 days 05/29/2013 Appointment: Valentina Smith WPtel: [address] [place], [place] [phone] Follow up 05/29/2013 Patient Education: Patient Medication Summary Completed 05/29/2013 Visit Plan: Ulcer of knee-sharp debridement today in the office--wound care instructions provided for patient-patient and mother verbalized understanding of plan. Follow up next week. 05/23/2013 Appointment: Valentina Smith WPtel: [address] [place], [place] [phone] [place] [address] Follow up 05/23/2013 Patient Education: Patient Medication Summary Completed 05/23/2013 Appointment: Valentina Smith WPtel: [address] [place], [place] [phone] [place] [address] Follow up 05/22/2013 Visit Plan: Ulcer of knee-wound care instructions provided for patient-patient and mother verbalized understanding of plan. 05/19/2013 Appointment: Valentina Smith WPtel: [address] [place], [place] [phone] [place] [address] 05/19/2013 Patient Education: Patient Medication Summary Completed 05/19/2013 Visit Plan: Ulcer of knee-fibrous tissue debrided today in the office--wound care instructions provided for patient-return in 1 week for follow up. 05/16/2013 Appointment: Valentina Smith WPtel: [address] [place], [place] [phone] [place] [address] follow up 05/16/2013 Patient Education: Patient Medication Summary Completed 05/16/2013 Appointment: Aicha Thompson WPtel: [address] [place], [place] [phone] [facility] 05/10/2013 Patient Education: Patient Medication Summary Completed [...] the office. 03/06/2013 Appointment: Valentina Smith WPtel: [phone] Other 03/06/2013 Patient Education: Patient Medication Summary Completed 03/06/2013 Appointment: Aicha Thompson WPtel: [facility]9 [facility] Nurse Visit 02/20/2013 Patient Education: Patient Medication Summary Completed 02/20/2013 Appointment: Aicha Thompson WPtel: [facility] Follow up 01/16/2013 Visit Plan: Joint pain [...] acute concerns. 12/26/2012 Appointment: Aicha Thompson WPtel: [facility] [place] Other 12/26/2012 Patient Education: Patient Medication Summary Completed 12/26/2012 Patient Education: Hypertension Completed 12/26/2012 Appointment: Aicha Thompson WPtel: [phone] [facility] [place] Lab Draw 12/21/2012 Patient Education: Patient [...] acute changes 11/21/2012 Appointment: Aicha Thompson [facility]Ptel: [facility] [place] Follow up 11/21/2012 Patient Education: Patient Medication Summary Completed 11/21/2012 Patient Education: Hypertension Completed 11/21/2012 Appointment: Aicha Thompson WPtel: [facility] [place] Injection 11/16/2012 Patient Education: Patient Medication Summary Completed 11/16/2012 Appointment: Aicha Thompson WPtel: [facility] [place] Injection 09/28/2012 Patient Education: Patient Medication Summary Completed 09/28/2012 Appointment: Aicha Thompson WPtel: [facility] [place] Injection 09/26/2012 Patient Education: Patient Medication Summary Completed 09/26/2012 Appointment: Aicha Thompson WPtel: [address] [place] [address] [place] Injection 09/12/2012 Patient Education: Patient Medication Summary Completed 09/12/2012 Appointment: [facility] Thompson [facility]el: [phone] [place] Injection 08/11/2012 Patient Education: Patient Medication [...] Visit Plan: Joint pain - again reassured Ikre and her mom that there is no [...] sparingly. 07/13/2012 Appointment: Aich[facility] Thompson [facility]Ptel: [phone] [place] Other 07/13/2012 Patient Education: Patient Medication [...] in medications 05/26/2012 Appointment: Valentina Smith WPtel: [address] [place], [place] [phone] [place] [address] Other 05/26/2012 Patient Education: Patient Medication Summary Completed 05/26/2012 Appointment: Valentina Smith WPtel: [address] [place], [place] [phone] [place] Sick 03/15/2012 Appointment: DonnaAicha WPtel: [facility] Injection 03/02/2012 Patient Education: Patient Medication Summary [...] the medication. 02/15/2012 Appointment: Valentina Smith WPtel: [address] [place], [place] [phone] [place] [address] Other 02/15/2012 Patient Education: Patient Medication Summary [...] to medications 01/13/2012 Appointment: Valentina Smith WPtel: [phone] [place] Other 01/13/2012 Patient Education: Patient Medication Summary Completed 01/13/2012 Appointment: Valentina Smith WPtel: [address] [place], [place] [id number] [place] Other 01/06/2012 Visit Plan: Asthma - chest xray and symbicort sample today. Patellofemoral syndrome- recommended physical therapy. Costochondritis - recommended pt to use antiinflammatories as able for treatment of rib/sternum irritation and for pt to call if her symptoms do not improve. 12/21/2011 Appointment: Aicha Thompson WPtel: [address] [place] [address] Other 12/21/2011 Patient Education: Patient Medication Summary [...] the office. 10/02/2011 Appointment: Valentina Smith WPtel: [phone] [place] Other 10/02/2011 Patient Education: Patient Medication Summary Completed 10/02/2011 Visit Plan: Pain in joints-arms, elbows-recent fall- discussed natural and expected course of this diagnosis and to alert me if symptoms do not follow expected course, or if any worse. Patient verbalized understanding. Neck sfrb-mqkvehm-dqvqczwjj physical therapy-patient declined at this time-going to see the canvas baster jumpbasting this afternoon. B12 deficiency-B12 injection today in the office. 09/01/2011 Appointment: Valentina Smith WPtel: [address] [phone] Other 09/01/2011 Patient Education: Patient Medication [...] management sparingly. 08/03/2011 Appointment: Aicha Thompson WPtel: [address] [id number] [place] Follow up 08/03/2011 Patient Education: Patient [...] HER PAIN. 06/29/2011 Appointment: Aicha Thompson WPtel: [phone] [phone] [place] Follow up 06/29/2011 Patient Education: Patient Medication Summary Completed 06/29/2011 Appointment: Aicha Thompson WPtel: [phone] [id number] Other 06/24/2011 Visit Plan: Right knee pain, bilateral wrist pain-recent fall-discussed natural and expected course of this diagnosis and to alert me if symptoms do not follow expected course, or if any worse. Patient verbalized understanding. Recommend follow up with Ortho physician if pain persists. 06/22/2011 Appointment: Valentina Smith WPtel: [address] [phone] [place] Other 06/22/2011 Patient Education: Patient Medication Summary Completed 06/22/2011 Visit Plan: Knee and Ankle pain and instability- recommend re-evaluation by an veterinary milk specialist at [facility] of the [address] [place] [address]. Pt has been recommended to go back to Dr. Corbin at [facility] of the [address] [place] [address] as my office did not get a [...] of fibromyalgia. 06/11/2011 Appointment: Aicha Thompson WPtel: [address] [phone] [place] Injection 06/11/2011 Appointment: Aicha Thompson WPtel: [address] [phone] Other 06/11/2011 Patient Education: Patient Medication Summary Completed 06/11/2011 Visit Plan: Knee and Ankle pain and instability- recommend evaluation by an veterinary milk specialist at [facility]. The pt has been previously referred [...] physical appearance. 03/11/2011 Appointment: Aicha Thompson WPtel: [facility]5 [id number] Other 03/11/2011 Patient Education: Patient Medication Summary Completed 03/11/2011 Patient Education: .Amazing charts Diabetic meal planning guide Completed 03/11 Appointment: [id number] [facility] 02/23/2011 Patient Education: Patient Medication Summary Completed 02/23/2011 Visit Plan: iliotibial band syndrome - continue with current treatment per canvas baster jumpbasting. I have recommend use of biofreeze to the right outer leg. I have given pt stretching exercises for home. Fibromyalgia - chronic - continue with exercise, heat, and prn pain medication. Knee pain - apparently resolved prior to her appointment today. No change in present management, call if pain returns. 02/12/2011 Appointment: Aicha Thompson WPtel: [address] [id number] Other 02/12/2011 Patient Education: Patient Medication Summary [...] Patient Medication Summary Completed 01/29/2011 Instructions Comment MRI RIGHT ANKLE NEOSPORIN TO SORE RIGHT [...] shoes and use walker for stability . Headaches-neck pain-patient is to let us know which neurologist she wants to see B12 def-injection today in the office Hyperlipidemia-check labs Vitamin D def-check level . Overweight - chronic issue with this [...] physical therapy for strengthening Dr Saunders -[facility] . Bilateral foot and ankle pain-now has AFOs-we have made her several appt with podiatrists which she has not kept-recommend patient call Dr Saunders and reschedule appt with him. Neck pain-[facility] appt next week-KEEP APPOINTMENT! sleep study -redd [...] any concerns, bleeding, etc. . Ulcer left acoj-mfgzqvjo-i/u in 10 days MAKE APPOINTMENT CALLY KELLY/DR [...] for PT-recommend appt with Dr Ibarra . Cervicalgia-MRI neck without contrast for further evaluation for further evaluation of persistent neck pain despite PT. . [place] referral - pt to indicate when and who she would like to go to - for neck and back AFO for both legs - [facility] in [place], [place]- fax # [phone] pt has been seen by industry segment specialist - need brace because of bilateral [...] the instructions given to her from her farmworker fur and she is to call him if her constipation is uncontrolled. Hemorrhoids-use suppositories as directed. . Hypertension - well controlled - continue [...] her taper off of the hydrocodone. . Foot pain and SI joint pain [...] as appropriate-patient verbalized understanding of plan. . Anxiety-fairly well controlled-does have added stress with family-no change in medications-call if symptoms worsen Neck pain-recommend rest, ice and anti inflammatories as directed-call if symptoms do not resolve or if any worse. Patient verbalized understanding of plan. . iliotibial band syndrome - continue with current treatment per canvas baster jumpbasting. I have recommend use of biofreeze to the right outer leg. I have given pt stretching exercises for home. Fibromyalgia - chronic - continue with exercise, heat, and prn pain medication. Knee pain -apparently resolved prior to her appointment today. No change in present management, call if pain returns. . Low back pain-discussed need to evaluate cervical issues first-may benefit from PT-continue anti inflammatories as directed Cervical stenosis-called Dr Ramey's office-referral pending-they will call the patient with the appt . Knee and Ankle pain and instability- recommend re- evaluation by an veterinary milk specialist at [facility] the [facility]. Pt has been recommended to go back [place] [facility] [place] [facility] [place] [...] savella for treatment of fibromyalgia. REFER TO [facility] FOR PODIATRY EVALUATION DX BILATERAL FOOT AND ANKLE PAIN . Bilateral foot pain-foot drop-patient getting AFOs-refer to podiatry for evaluation-wants to see someone in [place] MRI NECK AND BRAIN [facility] [...] the list of the neurologists that her transit operations supervisor has recommended and we would consider [...] the list of the neurologists that her transit operations supervisor has recommended and we would consider [...] if any worse. Patient verbalized understanding. Neck mhfi-mwpksyw-nfynqftae physical therapy-patient declined at this time- going to see the canvas baster jumpbasting this afternoon. B12 deficiency-B12 injection today in [...] today in the office. . Ulcer of gklo-xzjoibf-emzpp instructions provided today and instructed patient to return as directed-keep wound clean and dry. Hemorrhoids-refill anusol suppositories and use as directed B12 deficiency-b12 injection today in the office Rwoukvgoc-zdkfyamngijj-dlhufva injection today in the office-continue oral medications [...] pressure readings at home. . Generalized abd lwhz-PTH-wbbkpo cipro/flagyl-culture urine-recommend patient follow up with Dr Grace for an appt if abdominal pain does not improve Low potassium-check labs . Generalized abd ghqs-BLD-kqefbb cipro/flagyl-culture urine-recommend patient follow up with Dr Grace for an appt if abdominal pain does not improve Low potassium-check labs B12 injection . Neck unmt-lcrsfko-xtyhmyz to continue f/u with [facility]-her symptoms have [...] on current regimen-no changes in medications Dr[facility] . Hypertension - well controlled - [...] pain and instability- recommend evaluation by an veterinary milk specialist at [facility]. The pt has been previously referred [...] (may be called three old goats) at [facility] and home. . Hypertension - well controlled [...] further evaluation Bilateral ankle pain-xray ankles . Hypertension - well controlled - continue [...] is stable, monitor for acute changes . Wrist pain- recommend pt to have [...]
--- OUTSIDE RECORDS SUMMARY | 2018-08-03 07:49 | XMS REPORT | CCD ---
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 Name Role Phone PP Unavailable CCM Unavailable Summary Purpose Interface Exchange Insurance Providers Payer name Policy type / Coverage type Covered democrat ID Effective Begin Date Effective End Date WPS Medicare Part B Medicare Part B [id number] 2013 Unknown [facility] Medicare Part B [id number] 2013 Unknown Family history Grandmother Diagnosis Age [...] status Unknown 01/29/[address]: 901638875 Never smoker 01/29/[address]: 241382 Currently drinks alcohol mixed drink before bed [...] sleep apnea Unknown Active 05/14/2011 Unknown 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 03/11/2011 Unknown Overweight (BMI [...] Active sleep apnea Unknown 05/14/2011 Active 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 03/11/2011 Active Overweight (BMI 25.0-29.9) [...] Fill Instructions tramadol 50 mg tablet RxNorm: 051602 1-2 Tablet(s) PO TID as needed 04/20/2018 06/18/2018 Active Valium 10 mg tablet RxNorm: 440566 1 Tablet(s) daily as needed 04/18/2018 06/16/2018 Active hydrocodone 10 mg-acetaminophen 325 mg tablet RxNorm: 089168 1 tab bid x 1 week then daily x 2 weeks then stop Tablet(s) PO Q6 for pain 04/1805/10/2018 Active diazepam 10 mg tablet RxNorm: 875665 1 Tablet(s) BID 04/18/2018 06/16/2018 Active Claritin-D 12 Hour 5 mg-120 mg tablet,extended release RxNorm: 3971769 Tablet(s) as needed TAKE 1 TABLET BY MOUTH TWICE DAILY NEEDED 201706/12/2018 Active tramadol 50 mg tablet RxNorm: 422649 1-2 Tablet(s) PO TID as needed 03/10/2018 04/07/2018 Inactive cyanocobalamin (vit B-12) 1,000 mcg/mL injection solution RxNorm: 612542 1 Milliliter(s) Inj 03/10/2018 03/10/2018 Inactive Seroquel 100 mg tablet RxNorm: 226808 1 TABLET(S) PO BID 201703/01/2019 Active TAKE 1 TABLET BY MOUTH TWICE DAILY hydrocodone 10 mg-acetaminophen 325 mg tablet RxNorm: 785464 1-2 Tablet(s) PO Q6 as needed for pain 02/21/2018 03/09/2018 Inactive Ventolin HFA 90 mcg/actuation aerosol inhaler RxNorm: 717355 1 OR 2 PUFF(S) INH Q6 PRN NEEDED 01/13/2018 07/11/2018 Active trazodone 100 mg tablet RxNorm: 576120 TABLET(S) TAKE 2 TABLETS BY MOUTH EVERY NIGHT AT BEDTIME 12/07/2017 09/02/2018 Active hydrocodone 10 mg-acetaminophen 325 mg tablet RxNorm: 213373 1-2 Tablet(s) PO Q6 as needed for pain 12/03/2017 12/25/2017 Inactive Ventolin HFA 90 mcg/actuation aerosol inhaler RxNorm: 043208 1 OR 2 PUFF(S) INH Q6 PRN NEEDED 11/26/2017 01/12/2018 Inactive Savella 100 mg tablet RxNorm: 570634 TABLET(S) PO TAKE 1 TABLET BY MOUTH DAILY 11/23/2017 No Stop Date Active Effexor XR 150 mg capsule,extended release RxNorm: 559090 1 CAPSULE(S) PO BID 1 CAPSULE(S) PO BID 11/23/2017 04/21/2018 Active TAKE 1 CAPSULE BY MOUTH TWICE DAILY Claritin-D 12 Hour 5 mg-120 mg tablet,extended release RxNorm: 3613329 Tablet(s) as needed TAKE 1 TABLET BY MOUTH TWICE DAILY NEEDED 201701/20/2018 Inactive diazepam 10 mg tablet RxNorm: 604303 Tablet(s) TAKE 1 TABLET BY MOUTH FOUR TIMES DAILY NEEDED 11/23/2017 03/09/2018 Inactive Valium 10 mg tablet RxNorm: 068271 1 Tablet(s) QID as needed 11/16/2017 01/14/2018 Inactive metoprolol tartrate 25 mg tablet RxNorm: 444923 TABLET(S) TABLET(S) 1/2 TABLET(S) PO BID TAKE 1/2 TABLET BY MOUTH TWICE DAILY 11/12/2017 No Stop Date Active pantoprazole 40 mg tablet,delayed release RxNorm: 900232 TAKE 1 TABLET BY MOUTH EVERY DAY 11/12/2017 05/10/2018 Active betamethasone dipropionate 0.05 % topical cream RxNorm: 639272 1 APPLICATION TOP BID 10/22/2017 11/04/2017 Inactive tramadol 50 mg tablet RxNorm: 287283 1-2 Tablet(s) PO TID as needed 10/20/2017 01/16/2018 Inactive prednisone 10 mg tablets in a dose pack RxNorm: 021225 1 Tablet(s) PO UD 10/19/2017 10/24/2017 Inactive 6-5-4-3-2-1 cyanocobalamin (vit B-12) 1,000 mcg/mL injection solution RxNorm: 596563 1 Milliliter(s) Inj 10/19/2017 10/19/2017 Inactive betamethasone dipropionate 0.05 % topical cream RxNorm: 310182 1 Application TOP BID 10/19/2017 10/21/2017 Inactive hydrocodone 10 mg-acetaminophen 325 mg tablet RxNorm: 077648 1-2 Tablet(s) PO Q6 as needed for pain 10/19/2017 11/10/2017 Inactive Effexor XR 150 mg capsule,extended release RxNorm: 291630 1 Capsule(s) PO BID 1 CAPSULE(S) PO BID 10/19/2017 11/22/2017 Inactive TAKE 1 CAPSULE BY MOUTH TWICE DAILY prednisone 5 mg tablet RxNorm: 233210 1 Tablet(s) PO UD 04/13/ 2018 No Stop Date Active Cipro 500 mg tablet RxNorm: 938074 1 Tablet(s) PO BID 201709/26/2017 Inactive Flagyl 500 mg tablet RxNorm: 607555 1 Tablet(s) PO TID 201709/26/2017 Inactive prednisone 10 mg tablet RxNorm: 970908 1 Tablet(s) PO UD 201709/16/2017 Inactive 2 tabs daily x 3 days 1 tab daily x 3 daily then resume usual 5mg daily hydrocodone 10 mg-acetaminophen 325 mg tablet RxNorm: 121732 1-2 Tablet(s) PO Q6 as needed for pain 09/10/2017 10/02/2017 Inactive Savella 100 mg tablet RxNorm: 392587 TABLET(S) PO TAKE 1 TABLET BY MOUTH DAILY 08/31/2017 No Stop Date Active cyanocobalamin (vit B-12) 1,000 mcg/mL injection solution RxNorm: 490902 1 Milliliter(s) Inj 08/19/2017 08/19/2017 Inactive pantoprazole 40 mg tablet,delayed release RxNorm: 634262 TAKE 1 TABLET BY MOUTH EVERY DAY 08/17/2017 11/11/2017 Inactive trazodone 100 mg tablet RxNorm: 774215 TABLET(S) TAKE 2 TABLETS BY MOUTH EVERY NIGHT AT BEDTIME 08/17/2017 12/06/2017 Inactive Ventolin HFA 90 mcg/actuation aerosol inhaler RxNorm: 299160 1 OR 2 PUFF(S) INH Q6 PRN NEEDED 08/11/2017 01/07/2018 Inactive Advair Diskus 250 mcg-50 mcg/dose powder for inhalation RxNorm: 6925289 1 Puff(s) INH BID 08/11/2017 12/08/2017 Inactive Advair Diskus 250 mcg-50 mcg/dose powder for inhalation RxNorm: 4716840 1 PUFF(S) INH BID 08/11/2017 11/08/2017 Inactive Ventolin HFA 90 mcg/actuation aerosol inhaler RxNorm: 239686 1 OR 2 PUFF(S) INH Q6 PRN NEEDED 08/11/2017 11/25/2017 Inactive hydrocodone 10 mg-acetaminophen 325 mg tablet RxNorm: 042229 1-2 Tablet(s) PO Q6 as needed for pain 08/03/2017 08/25/2017 Inactive tramadol 50 mg tablet RxNorm: 379209 1-2 Tablet(s) PO TID as needed 07/26/2017 04/19/2018 Inactive Valium 10 mg tablet RxNorm: 218874 1 Tablet(s) QID as needed 07/09/2017 09/06/2017 Inactive Effexor XR 150 mg capsule,extended release RxNorm: 792956 Capsule(s) 1 CAPSULE(S) PO BID 07/07/2017 10/18/2017 Inactive TAKE 1 CAPSULE BY MOUTH TWICE DAILY metoprolol tartrate 25 mg tablet RxNorm: 089563 Tablet(s) TABLET(S) 1/2 TABLET(S) PO BID TAKE 1/2 TABLET BY MOUTH TWICE DAILY 07/07/2017 11/11/2017 Inactive diazepam 10 mg tablet RxNorm: 185487 Tablet(s) TAKE 1 TABLET BY MOUTH FOUR TIMES DAILY NEEDED 07/07/2017 08/02/2017 Inactive cyanocobalamin (vit B-12) 1,000 mcg/mL injection solution RxNorm: 548227 1 Milliliter(s) Inj 07/06/2017 07/06/2017 Inactive tramadol 50 mg tablet RxNorm: 709338 1-2 Tablet(s) PO TID as needed 06/21/2017 09/17/2017 Inactive hydrocodone 10 mg-acetaminophen 325 mg tablet RxNorm: 368674 1-2 Tablet(s) PO Q6 as needed for pain 06/17/2017 07/09/2017 Inactive cyclobenzaprine 10 mg tablet RxNorm: 571324 TAKE 1 TABLET BY MOUTH THREE TIMES DAILY NEEDED FOR MUSCLE SPASMS 06/08/2017 08/31/2018 Active Lipitor 20 mg tablet RxNorm: 850138 1 TABLET(S) PO DAILY 201706/02/2018 Active TAKE ONE TABLET BY MOUTH EVERY NIGHT AT BEDTIME Claritin-D 12 Hour 5 mg-120 mg tablet,extended release RxNorm: 4249601 Tablet(s) as needed TAKE 1 TABLET BY MOUTH TWICE DAILY NEEDED 201709/04/2017 Inactive trazodone 100 mg tablet RxNorm: 019846 TABLET(S) TAKE 2 TABLETS BY MOUTH EVERY NIGHT AT BEDTIME 05/17/2017 08/14/2017 Inactive cyclobenzaprine 5 mg tablet RxNorm: 618171 Tablet(s) PO TAKE 1 TABLET BY MOUTH THREE TIMES DAILY NEEDED FOR MUSCLE SPASMS (New dose has not been sent to pharmacy) 05/11/2017 No Stop Date Active Valium 5 mg tablet RxNorm: 098257 1 Tablet(s) PO QID as needed (New dose has not been sent to pharmacy) 05/11/2017 No Stop Date Active diazepam 10 mg tablet RxNorm: 587989 TAKE 1 TABLET BY MOUTH FOUR TIMES DAILY NEEDED 04/28/2017 05/27/2017 Inactive hydrocodone 10 mg-acetaminophen 325 mg tablet RxNorm: 290431 1-2 Tablet(s) PO Q6 as needed for pain 04/27/2017 05/19/2017 Inactive cyanocobalamin (vit B-12) 1,000 mcg/mL injection solution RxNorm: 907065 1 Milliliter(s) Inj 04/27/2017 04/27/2017 Inactive hydrocodone 10 mg-acetaminophen 325 mg tablet RxNorm: 198222 1-2 Tablet(s) PO Q6 as needed for pain 03/17/2017 04/08/2017 Inactive Seroquel 100 mg tablet RxNorm: 159824 1 TABLET(S) PO BID 201603/06/2018 Inactive TAKE 1 TABLET BY MOUTH TWICE DAILY Valium 10 mg tablet RxNorm: 732033 1 Tablet(s) QID as needed 03/05/2017 05/03/2017 Inactive Claritin-D 12 Hour 5 mg-120 mg tablet,extended release RxNorm: 9591472 Tablet(s) as needed TAKE 1 TABLET BY MOUTH TWICE DAILY NEEDED 201604/13/2018 Inactive pantoprazole 40 mg tablet,delayed release RxNorm: 473271 TAKE 1 TABLET BY MOUTH EVERY DAY 02/26/2017 08/16/2017 Inactive tramadol 50 mg tablet RxNorm: 322209 1-2 Tablet(s) PO TID as needed 02/17/2017 05/17/2017 Inactive hydrocodone 10 mg-acetaminophen 325 mg tablet RxNorm: 695716 1-2 Tablet(s) PO Q6 as needed for pain 02/17/2017 03/11/2017 Inactive Valium 10 mg tablet RxNorm: 048517 1 Tablet(s) QID as needed 02/02/2017 03/03/2017 Inactive (Response to an electronic controlled substance refill request [id number]|1|0|1) nystatin 100,000 unit/gram topical powder RxNorm: 232066 1 APPLICATION TOP QID UNTIL HEALED 01/21/2017 No Stop Date Active Advair Diskus 250 mcg-50 mcg/dose powder for inhalation RxNorm: 0641382 1 Puff(s) INH BID 01/21/2017 05/20/2017 Inactive hydrocodone 10 mg-acetaminophen 325 mg tablet RxNorm: 102240 1-2 Tablet(s) PO Q6 as needed for pain 01/21/2017 02/11/2017 Inactive metoprolol tartrate 25 mg tablet RxNorm: 474692 TABLET(S) 1/2 TABLET(S) PO BID TAKE 1/2 TABLET BY MOUTH TWICE DAILY 01/18/2017 07/06/2017 Inactive Effexor XR 150 mg capsule,extended release RxNorm: 261998 1 CAPSULE(S) PO BID 01/11/2017 07/06/2017 Inactive TAKE 1 CAPSULE BY MOUTH TWICE DAILY Effexor XR 150 mg capsule,extended release RxNorm: 268171 1 Capsule(s) PO BID 1 CAPSULE(S) PO BID 01/08/2017 07/06/2017 Inactive TAKE 1 CAPSULE BY MOUTH TWICE DAILY nystatin 100,000 unit/gram topical powder RxNorm: 990565 1 APPLICATION TOP QID UNTIL HEALED 12/17/2016 01/20/2017 Inactive hydrocodone 10 mg-acetaminophen 325 mg tablet RxNorm: 915969 1-2 Tablet(s) PO Q6 as needed for pain 12/17/2016 01/07/2017 Inactive Claritin-D 12 Hour 5 mg-120 mg tablet,extended release RxNorm: 7424288 Tablet(s) as needed TAKE 1 TABLET BY MOUTH TWICE DAILY NEEDED 201602/12/2017 Inactive Lipitor 20 mg tablet RxNorm: 218954 1 TABLET(S) PO DAILY 201606/07/2017 Inactive TAKE ONE TABLET BY MOUTH EVERY NIGHT AT BEDTIME Advair Diskus 250 mcg-50 mcg/dose powder for inhalation RxNorm: 9217825 1 Puff(s) INH BID 11/26/2016 01/20/2017 Inactive Valium 10 mg tablet RxNorm: 538921 1 Tablet(s) QID as needed 11/24/2016 01/22/2017 Inactive (Response to an electronic controlled substance refill request - RxReferenceNumber: [id number]|1|0|1) cyanocobalamin (vit B-12) 1,000 mcg/mL injection solution RxNorm: 624229 1 Milliliter(s) Inj 11/17/2016 11/17/2016 Inactive tramadol 50 mg tablet RxNorm: 981586 1-2 Tablet(s) PO TID as needed 11/06/2016 10/19/2017 Inactive hydrocodone 10 mg-acetaminophen 325 mg tablet RxNorm: 798541 1-2 Tablet(s) PO Q6 as needed for pain 11/06/2016 11/27/2016 Inactive nystatin 100,000 unit/gram topical powder RxNorm: 940816 1 Application TOP QID until healed 10/27/2016 12/16/2016 Inactive cyanocobalamin (vit B-12) 1,000 mcg/mL injection solution RxNorm: 749615 1 Milliliter(s) Inj 10/12/2016 10/12/2016 Inactive trazodone 100 mg tablet RxNorm: 619760 Tablet(s) TAKE 2 TABLETS BY MOUTH EVERY NIGHT AT BEDTIME 09/24/2016 03/22/2017 Inactive Valium 10 mg tablet RxNorm: 132429 1 Tablet(s) QID as needed 09/24/2016 11/22/2016 Inactive (Response to an electronic controlled substance refill request - RxReferenceNumber: [id number]|1|0|1) Savella 100 mg tablet RxNorm: 999923 TABLET(S) PO TAKE 1 TABLET BY MOUTH DAILY 09/18/2016 08/30/2017 Inactive pantoprazole 40 mg tablet,delayed release RxNorm: 197024 TAKE 1 TABLET BY MOUTH EVERY DAY 09/18/2016 02/25/2017 Inactive cyanocobalamin (vit B-12) 1,000 mcg/mL injection solution RxNorm: 090666 1 Milliliter(s) Inj 09/11/2016 09/11/2016 Inactive hydrocodone 10 mg-acetaminophen 325 mg tablet RxNorm: 799000 1-2 Tablet(s) PO Q6 as needed for pain 08/24/2016 11/05/2016 Inactive (Response to an electronic controlled substance refill request - RxReferenceNumber: [id number]|1|0|1) Claritin-D 12 Hour 5 mg-120 mg tablet,extended release RxNorm: 3615756 Tablet(s) TAKE 1 TABLET BY MOUTH TWICE DAILY NEEDED 08/13/2016 04/13/2018 Inactive tramadol 50 mg tablet RxNorm: 187626 1-2 Tablet(s) PO TID PRN as needed 08/11/2016 11/05/2016 Inactive metoprolol tartrate 25 mg tablet RxNorm: 020787 TABLET(S) 1/2 TABLET(S) PO BID TAKE 1/2 TABLET BY MOUTH TWICE DAILY 08/10/2016 01/17/2017 Inactive pantoprazole 40 mg tablet,delayed release RxNorm: 367138 TAKE 1 TABLET BY MOUTH EVERY DAY 08/10/2016 11/05/2016 Inactive Savella 100 mg tablet RxNorm: 120028 TABLET(S) PO TAKE 1 TABLET BY MOUTH DAILY 08/10/2016 11/05/2016 Inactive Ventolin HFA 90 mcg/actuation aerosol inhaler RxNorm: 806356 1 OR 2 PUFF(S) INH Q6 PRN NEEDED 08/07/2016 02/02/2017 Inactive Diflucan 150 mg tablet RxNorm: 157786 1 Tablet(s) PO daily 08/201608/13/2016 Inactive nystatin 100,000 unit/mL oral suspension RxNorm: 416328 5 Milliliter(s) PO QID 08/07/2016 08/16/2016 Inactive hydrocodone 10 mg-acetaminophen 325 mg tablet RxNorm: 285262 1-2 Tablet(s) PO Q6 as needed for pain 08/04/2016 08/23/2016 Inactive (Response to an electronic controlled substance refill request - RxReferenceNumber: [id number]|1|0|1) Valium 10 mg tablet RxNorm: 438804 1 Tablet(s) QID as needed 07/20/2016 09/17/2016 Inactive (Response to an electronic controlled substance refill request - RxReferenceNumber: [id number]|1|0|1) tramadol 50 mg tablet RxNorm: 457573 1-2 Tablet(s) PO TID PRN as needed 07/15/2016 11/05/2016 Inactive ok to give 1 month gkxblw=684 tablets cyanocobalamin (vit B-12) 1,000 mcg/mL injection solution RxNorm: 595401 Milliliter(s) Inj 07/03/2016 07/03/2016 Inactive Seroquel 100 mg tablet RxNorm: 738163 1 TABLET(S) PO BID 201603/15/2017 Inactive TAKE 1 TABLET BY MOUTH TWICE DAILY hydrocodone 10 mg-acetaminophen 325 mg tablet RxNorm: 025186 1-2 Tablet(s) PO Q6 as needed for pain 06/26/2016 08/03/2016 Inactive (Response to an electronic controlled substance refill request - RxReferenceNumber: [id number]|1|0|1) Valium 10 mg tablet RxNorm: 254449 1 Tablet(s) QID as needed 05/11/2016 07/09/2016 Inactive (Response to an electronic controlled substance refill request - RxReferenceNumber: [id number]|1|0|1) tramadol 50 mg tablet RxNorm: 797343 1-2 Tablet(s) PO TID PRN as needed 05/11/2016 07/08/2016 Inactive ok to give 1 month srzvxh=970 tablets cyclobenzaprine 10 mg tablet RxNorm: 766166 TAKE 1 TABLET BY MOUTH THREE TIMES DAILY NEEDED FOR MUSCLE SPASMS 05/11/2016 05/10/2017 Inactive hydrocodone 10 mg-acetaminophen 325 mg tablet RxNorm: 984585 1-2 Tablet(s) PO Q6 as needed for pain 05/06/2016 06/25/2016 Inactive (Response to an electronic controlled substance refill request - RxReferenceNumber: [id number]|1|0|1) cyanocobalamin (vit B-12) 1,000 mcg/mL injection solution RxNorm: 523261 1 Milliliter(s) Inj 04/20/2016 04/20/2016 Inactive hydrocodone 10 mg-acetaminophen 325 mg tablet RxNorm: 429943 1-2 Tablet(s) PO Q6 as needed for pain 04/03/2016 05/05/2016 Inactive (Response to an electronic controlled substance refill request - RxReferenceNumber: [id number]|1|0|1) pantoprazole 40 mg tablet,delayed release RxNorm: 671175 TAKE 1 TABLET BY MOUTH EVERY DAY 04/02/2016 08/09/2016 Inactive Claritin-D 12 Hour 5 mg-120 mg tablet,extended release RxNorm: 1779856 Tablet(s) TAKE 1 TABLET BY MOUTH TWICE DAILY NEEDED 04/02/2016 11/05/2016 Inactive hydrocodone 10 mg-acetaminophen 325 mg tablet RxNorm: 675016 1-2 Tablet(s) PO Q6 as needed for pain 03/12/2016 04/02/2016 Inactive (Response to an electronic controlled substance refill request - RxReferenceNumber: [id number]|1|0|1) Effexor XR 150 mg capsule,extended release RxNorm: 990702 1 CAPSULE(S) PO BID 03/05/2016 01/07/2017 Inactive TAKE 1 CAPSULE BY MOUTH TWICE DAILY Ventolin HFA 90 mcg/actuation aerosol inhaler RxNorm: 749343 1 OR 2 PUFF(S) INH Q6 PRN NEEDED 02/19/2016 08/06/2016 Inactive cyanocobalamin (vit B-12) 1,000 mcg/mL injection solution RxNorm: 919600 Milliliter(s) Inj 02/13/2016 02/13/2016 Inactive hydrocodone 10 mg-acetaminophen 325 mg tablet RxNorm: 316706 1-2 Tablet(s) PO Q6 as needed for pain 02/05/2016 03/11/2016 Inactive (Response to an electronic controlled substance refill request - RxReferenceNumber: [id number]|1|0|1) Valium 10 mg tablet RxNorm: 697231 1 Tablet(s) QID as needed 02/05/2016 05/04/2016 Inactive (Response to an electronic controlled substance refill request - RxReferenceNumber: [id number]|1|0|1) tramadol 50 mg tablet RxNorm: 809336 1-2 Tablet(s) PO TID PRN as needed 02/05/2016 11/05/2016 Inactive ok to give 1 month jsryza=161 tablets hydrocodone 10 mg-acetaminophen 325 mg tablet RxNorm: 620446 1-2 Tablet(s) PO Q6 as needed for pain 01/08/2016 02/04/2016 Inactive (Response to an electronic controlled substance refill request - RxReferenceNumber: [id number]|1|0|1) metoprolol tartrate 25 mg tablet RxNorm: 565929 Tablet(s) 1/2 TABLET(S) PO BID TAKE 1/2 TABLET BY MOUTH TWICE DAILY 01/08/2016 08/09/2016 Inactive Symbicort 160 mcg-4.5 mcg/actuation HFA aerosol inhaler RxNorm: 1322398 2 INH BID 01/03/2016 11/25/2016 Inactive Symbicort 160 mcg-4.5 mcg/actuation HFA aerosol inhaler RxNorm: 3356199 1 INH daily 01/03/2016 01/02/2016 Inactive Lipitor 20 mg tablet RxNorm: 886380 1 TABLET(S) PO DAILY 201506/26/2016 Inactive TAKE ONE TABLET BY MOUTH EVERY NIGHT AT BEDTIME trazodone 100 mg tablet RxNorm: 858090 TAKE 2 TABLETS BY MOUTH EVERY NIGHT AT BEDTIME 12/30/2015 09/23/2016 Inactive Savella 100 mg tablet RxNorm: 718204 TABLET(S) PO TAKE 1 TABLET BY MOUTH DAILY 12/30/2015 08/09/2016 Inactive hydrocodone 10 mg-acetaminophen 325 mg tablet RxNorm: 977640 1-2 Tablet(s) PO Q6 as needed for pain 12/12/2015 01/07/2016 Inactive (Response to an electronic controlled substance refill request - RxReferenceNumber: [id number]|1|0|1) cyanocobalamin (vit B-12) 1,000 mcg/mL injection solution RxNorm: 028062 1 Milliliter(s) Inj 12/02/2015 12/02/2015 Inactive hydrocodone 10 mg-acetaminophen 325 mg tablet RxNorm: 468403 1-2 Tablet(s) PO Q6 as needed for pain 12/02/2015 12/11/2015 Inactive (Response to an electronic controlled substance refill request - RxReferenceNumber: [id number]|1|0|1) Claritin-D 12 Hour 5 mg-120 mg tablet,extended release RxNorm: 5560807 Tablet(s) TAKE 1 TABLET BY MOUTH TWICE DAILY 11/11/2015 11/10/2015 Inactive Claritin-D 12 Hour 5 mg-120 mg tablet,extended release RxNorm: 1993749 Tablet(s) TAKE 1 TABLET BY MOUTH TWICE DAILY NEEDED 11/11/2015 01/06/2016 Inactive tramadol 50 mg tablet RxNorm: 791672 1-2 Tablet(s) PO TID PRN as needed 11/05/2015 11/05/2016 Inactive ok to give 1 month qcmjlv=798 tablets Valium 10 mg tablet RxNorm: 526208 1 Tablet(s) QID as needed 11/05/2015 02/02/2016 Inactive (Response to an electronic controlled substance refill request - RxReferenceNumber: [id number]|1|0|1) cyanocobalamin (vit B-12) 1,000 mcg/mL injection solution RxNorm: 078754 1 Milliliter(s) Inj 10/29/2015 10/29/2015 Inactive hydrocodone 10 mg-acetaminophen 325 mg tablet RxNorm: 655040 1-2 Tablet(s) PO Q6 as needed for pain 10/28/2015 12/01/2015 Inactive (Response to an electronic controlled substance refill request - RxReferenceNumber: [id number]|1|0|1) pantoprazole 40 mg tablet,delayed release RxNorm: 904744 TAKE 1 TABLET BY MOUTH EVERY DAY 10/08/2015 04/01/2016 Inactive Seroquel 100 mg tablet RxNorm: 343141 1 TABLET(S) PO BID 201506/29/2016 Inactive TAKE 1 TABLET BY MOUTH TWICE DAILY trazodone 100 mg tablet RxNorm: 482218 TAKE 2 TABLETS BY MOUTH EVERY NIGHT AT BEDTIME 10/08/2015 10/01/2016 Inactive Lipitor 20 mg tablet RxNorm: 000900 1 TABLET(S) PO DAILY 201504/04/2016 Inactive TAKE ONE TABLET BY MOUTH EVERY NIGHT AT BEDTIME hydrocodone 10 mg-acetaminophen 325 mg tablet RxNorm: 453541 1-2 Tablet(s) PO Q6 as needed for pain 09/19/2015 10/18/2015 Inactive (Response to an electronic controlled substance refill request - RxReferenceNumber: [id number]|1|0|1) Valium 10 mg tablet RxNorm: 430149 1 Tablet(s) QID as needed 09/05/2015 11/03/2015 Inactive (Response to an electronic controlled substance refill request - RxReferenceNumber: [id number]|1|0|1) Savella 100 mg tablet RxNorm: 965784 Tablet(s) PO TAKE 1 TABLET BY MOUTH DAILY 07/19/2015 11/05/2016 Inactive Zithromax Z-Lauro 250 mg tablet RxNorm: 154601 1 Tablet(s) PO UD 07/12/2015 11/04/2015 Inactive z lauro hydrocodone 10 mg-acetaminophen 325 mg tablet RxNorm: 542547 1-2 Tablet(s) PO Q6 as needed for pain 07/10/2015 08/08/2015 Inactive (Response to an electronic controlled substance refill request - RxReferenceNumber: [id number]|1|0|1) tramadol 50 mg tablet RxNorm: 110684 1-2 Tablet(s) PO TID PRN as needed 07/04/2015 11/05/2016 Inactive ok to give 1 month ngfjsi=954 tablets hydrocodone 10 mg-acetaminophen 325 mg tablet RxNorm: 986742 1-2 Tablet(s) PO Q6 as needed for pain 06/10/2015 07/09/2015 Inactive (Response to an electronic controlled substance refill request - RxReferenceNumber: [id number]|1|0|1) cyanocobalamin (vit B-12) 1,000 mcg/mL injection solution RxNorm: 199225 Milliliter(s) Inj 06/10/2015 06/10/2015 Inactive pantoprazole 40 mg tablet,delayed release RxNorm: 714576 TABLET(S) PO TAKE 1 TABLET BY MOUTH EVERY DAY 06/10/201511/05 Inactive pantoprazole 40 mg tablet,delayed release RxNorm: 897459 Tablet(s) PO TAKE 1 TABLET BY MOUTH EVERY DAY 06/06/201511/05 Inactive tramadol 50 mg tablet RxNorm: 149609 1-2 Tablet(s) PO TID PRN as needed 05/29/2015 06/27/2015 Inactive ok to give 1 month ygevqj=973 tablets tramadol 50 mg tablet RxNorm: 624301 1-2 Tablet(s) PO Q6 as needed 05/29/2015 06/09/2015 Inactive Valium 10 mg tablet RxNorm: 711368 1 Tablet(s) QID as needed 05/08/2015 07/06/2015 Inactive (Response to an electronic controlled substance refill request - RxReferenceNumber: [id number]|1|0|1) cyclobenzaprine 10 mg tablet RxNorm: 029949 TAKE 1 TABLET BY MOUTH THREE TIMES DAILY NEEDED FOR MUSCLE SPASMS 05/08/2015 05/10/2016 Inactive Effexor XR 150 mg capsule,extended release RxNorm: 746416 1 Capsule(s) PO BID 1 CAPSULE(S) PO BID 05/08/2015 11/05/2016 Inactive TAKE 1 CAPSULE BY MOUTH TWICE DAILY hydrocodone 10 mg-acetaminophen 325 mg tablet RxNorm: 650052 1-2 Tablet(s) PO Q6 as needed for pain 05/08/2015 06/06/2015 Inactive (Response to an electronic controlled substance refill request - RxReferenceNumber: [id number]|1|0|1) metoprolol tartrate 25 mg tablet RxNorm: 762952 1/2 TABLET(S) PO BID TAKE 1/2 TABLET BY MOUTH TWICE DAILY 05/06/201507/2015 Inactive Claritin-D 12 Hour 5 mg-120 mg tablet,extended release RxNorm: 4736959 TAKE 1 TABLET BY MOUTH TWICE DAILY 04/16/201506/2016 Inactive hydrocodone 10 mg-acetaminophen 325 mg tablet RxNorm: 614092 1-2 Tablet(s) PO Q6 as needed for pain 04/15/2015 05/07/2015 Inactive (Response to an electronic controlled substance refill request - RxReferenceNumber: [id number]|1|0|1) pantoprazole 40 mg tablet,delayed release RxNorm: 998988 TABLET(S) PO TAKE 1 TABLET BY MOUTH EVERY DAY 04/08/201506/06 Inactive hydrocodone 10 mg-acetaminophen 325 mg tablet RxNorm: 590873 1 Tablet(s) PO Q4 PRN TAKE 1-2 TABLETS BY MOUTH EVERY 6 HOURS NEEDED FOR PAIN 03/14/2015 04/12/2015 Inactive (Response to an electronic controlled substance refill request - RxReferenceNumber: [id number]|1|0|1) diazepam 10 mg tablet RxNorm: 521154 1 Tablet(s) TID TAKE 1 TABLET BY MOUTH THREE TIMES DAILY NEEDED 02/08/20152016 Inactive (Response to an electronic controlled substance refill request - RxReferenceNumber: [id number]|1|0|1) Effexor XR 150 mg capsule,extended release RxNorm: 103605 1 CAPSULE(S) PO BID 02/07/2015 05/07/2015 Inactive TAKE 1 CAPSULE BY MOUTH TWICE DAILY cyclobenzaprine 10 mg tablet RxNorm: 318602 TAKE 1 TABLET BY MOUTH THREE TIMES DAILY NEEDED FOR MUSCLE SPASMS 02/07/2015 05/07/2015 Inactive pantoprazole 40 mg tablet,delayed release RxNorm: 469439 TABLET(S) PO TAKE 1 TABLET BY MOUTH EVERY DAY 02/07/201504/07 Inactive hydrocodone 10 mg-acetaminophen 325 mg tablet RxNorm: 180235 1 Tablet(s) PO Q4 PRN TAKE 1-2 TABLETS BY MOUTH EVERY 6 HOURS NEEDED FOR PAIN 01/25/2015 02/23/2015 Inactive (Response to an electronic controlled substance refill request - RxReferenceNumber: [id number]|1|0|1) Bactroban Nasal 2 % ointment RxNorm: 280957 1 Application NASAL BID 01/10/2015 01/10/2015 Inactive mupirocin 2 % topical ointment RxNorm: 240603 1 Application TOP TID 1 APPLICATION TOP PRN 01/10/2015 01/19/2015 Inactive disregard order for nasal ointment , use on left knee trazodone 100 mg tablet RxNorm: 880285 TAKE 2 TABLETS BY MOUTH EVERY NIGHT AT BEDTIME 01/08/2015 10/07/2015 Inactive Seroquel 100 mg tablet RxNorm: 579012 1 TABLET(S) PO BID 201410/04/2015 Inactive TAKE 1 TABLET BY MOUTH TWICE DAILY cyclobenzaprine 10 mg tablet RxNorm: 497801 TAKE 1 TABLET BY MOUTH THREE TIMES DAILY NEEDED FOR MUSCLE SPASMS 01/08/2015 02/06/2015 Inactive hydrocodone 10 mg-acetaminophen 325 mg tablet RxNorm: 760986 1 Tablet(s) PO Q4 PRN TAKE 1-2 TABLETS BY MOUTH EVERY 6 HOURS NEEDED FOR PAIN 12/21/2014 01/19/2015 Inactive (Response to an electronic controlled substance refill request - RxReferenceNumber: [id number]|1|0|1) pantoprazole 40 mg tablet,delayed release RxNorm: 969792 TABLET(S) PO TAKE 1 TABLET BY MOUTH EVERY DAY 12/13/201402/06 Inactive Lipitor 20 mg tablet RxNorm: 448977 1 Tablet(s) PO daily 201409/08/2015 Inactive TAKE ONE TABLET BY MOUTH EVERY NIGHT AT BEDTIME Valium 10 mg tablet RxNorm: 691229 1 Tablet(s) QID as needed 12/12/2014 02/09/2015 Inactive (Response to an electronic controlled substance refill request - RxReferenceNumber: [id number]|1|0|1) hydrocodone 10 mg-acetaminophen 325 mg tablet RxNorm: 663572 Tablet(s) TAKE 1-2 TABLETS BY MOUTH EVERY 6 HOURS NEEDED FOR PAIN 12/12/2014 12/20/2014 Inactive ( Response to an electronic controlled substance refill request - RxReferenceNumber: [id number]|1|0|1) Lipitor 20 mg tablet RxNorm: 212229 1 Tablet(s) PO daily 201412/12/2014 Inactive TAKE ONE TABLET BY MOUTH EVERY NIGHT AT BEDTIME pantoprazole 40 mg tablet,delayed release RxNorm: 381133 TABLET(S) PO TAKE 1 TABLET BY MOUTH EVERY DAY 12/06/201411/05 Inactive Savella 100 mg tablet RxNorm: 637304 Tablet(s) PO TAKE 1 TABLET BY MOUTH DAILY 12/06/2014 07/18/2015 Inactive Lipitor 20 mg tablet RxNorm: 146059 1 Tablet(s) PO daily 201412/10/2014 Inactive TAKE ONE TABLET BY MOUTH EVERY NIGHT AT BEDTIME Valium 10 mg tablet RxNorm: 344931 TAKE 1 TABLET BY MOUTH FOUR TIMES DAILY NEEDED FOR ANXIETY 12/06/2014 12/11/2014 Inactive Valium 10 mg tablet RxNorm: 450976 1 Tablet(s) QID as needed 11/13/2014 12/11/2014 Inactive (Response to an electronic controlled substance refill request - RxReferenceNumber: [id number]|1|0|1) hydrocodone 10 mg-acetaminophen 325 mg tablet RxNorm: 319848 Tablet(s) TAKE 1-2 TABLETS BY MOUTH EVERY 6 HOURS NEEDED FOR PAIN 11/13/2014 12/11/2014 Inactive ( Response to an electronic controlled substance refill request - RxReferenceNumber: [id number]|1|0|1) hydrocodone 10 mg-acetaminophen 325 mg tablet RxNorm: 334924 Tablet(s) TAKE 1-2 TABLETS BY MOUTH EVERY 6 HOURS NEEDED FOR PAIN 11/08/2014 11/12/2014 Inactive ( Response to an electronic controlled substance refill request - RxReferenceNumber: [id number]|1|0|1) Valium 10 mg tablet RxNorm: 262637 1 Tablet(s) QID as needed 11/08/2014 11/12/2014 Inactive (Response to an electronic controlled substance refill request - RxReferenceNumber: [id number]|1|0|1) metoprolol tartrate 25 mg tablet RxNorm: 188313 1/2 TABLET(S) PO BID TAKE 1/2 TABLET BY MOUTH TWICE DAILY 11/08/2014 Inactive Valium 10 mg tablet RxNorm: 609449 TAKE 1 TABLET BY MOUTH FOUR TIMES DAILY NEEDED FOR ANXIETY 11/06/2014 12/09/2014 Inactive Vitamin D2 50,000 unit capsule RxNorm: 524443 1 Capsule(s) PO QW 10/24/2014 10/23/2014 Inactive Vitamin D2 50,000 unit capsule RxNorm: 962849 1 Capsule(s) PO QW x 8 weeks 10/24/2014 12/22/2014 Inactive Entyvio 300 mg intravenous solution RxNorm: 3915279 IV 2014 No Stop Date Active hydrocodone 10 mg-acetaminophen 325 mg tablet RxNorm: 408053 Tablet(s) TAKE 1-2 TABLETS BY MOUTH EVERY 6 HOURS NEEDED FOR PAIN 10/05/2014 11/03/2014 Inactive ( Response to an electronic controlled substance refill request - RxReferenceNumber: [id number]|1|0|1) Valium 10 mg tablet RxNorm: 088064 TAKE 1 TABLET BY MOUTH EVERY 8 HOURS NEEDED 10/05/2014 11/03/2014 Inactive (Response to an electronic controlled substance refill request - RxReferenceNumber: [id number]|1|0|1) Valium 10 mg tablet RxNorm: 949482 1 Tablet(s) PO QID as needed TAKE 1 TABLET BY MOUTH 10/05/2014 11/05/2016 Inactive (Response to an electronic controlled substance refill request - RxReferenceNumber: [id number]|1|0|1) Valium 10 mg tablet RxNorm: 421232 TAKE 1 TABLET BY MOUTH THREE TIMES DAILY NEEDED 09/04/2014 10/03/2014 Inactive (Response to an electronic controlled substance refill request - RxReferenceNumber: [id number]|1|0|1) Valium 10 mg tablet RxNorm: 810823 1 Tablet(s) PO Q8 PRN as needed 09/04/2014 11/09/2014 Inactive hydrocodone 10 mg-acetaminophen 325 mg tablet RxNorm: 666852 Tablet(s) TAKE 1-2 TABLETS BY MOUTH EVERY 6 HOURS NEEDED FOR PAIN 08/27/2014 09/25/2014 Inactive ( Response to an electronic controlled substance refill request - RxReferenceNumber: [id number]|1|0|1) Claritin-D 12 Hour 5 mg-120 mg tablet,extended release RxNorm: 6038434 1 Tablet(s ) PO BID 08/27/2014 04/16/2015 Inactive Ventolin HFA 90 mcg/actuation aerosol inhaler RxNorm: 655530 1 or 2 Puff(s) INH Q6 PRN as needed 08/09/2014 03/06/2015 Inactive pantoprazole 40 mg tablet,delayed release RxNorm: 112459 Tablet(s) PO TAKE 1 TABLET BY MOUTH EVERY DAY 08/09/201408/08 Inactive pantoprazole 40 mg tablet,delayed release RxNorm: 586671 TAKE 1 TABLET BY MOUTH EVERY DAY 08/09/2014 11/05/2016 Inactive diazepam 10 mg tablet RxNorm: 807948 TAKE 1 TABLET BY MOUTH THREE TIMES DAILY NEEDED 07/02/2014 07/31/2014 Inactive (Response to an electronic controlled substance refill request - RxReferenceNumber: [id number]|1|0|1) Valium 10 mg tablet RxNorm: 298824 1 Tablet(s) PO Q8 PRN as needed 07/02/2014 07/01/2014 Inactive hydrocodone 10 mg-acetaminophen 325 mg tablet RxNorm: 995343 Tablet(s) TAKE 1-2 TABLETS BY MOUTH EVERY 6 HOURS NEEDED FOR PAIN 06/14/2014 07/13/2014 Inactive ( Response to an electronic controlled substance refill request - RxReferenceNumber: [id number]|1|0|1) diazepam 10 mg tablet RxNorm: 035023 TAKE 1 TABLET BY MOUTH THREE TIMES DAILY NEEDED 05/29/2014 06/27/2014 Inactive (Response to an electronic controlled substance refill request - RxReferenceNumber: [id number]|1|0|1) diazepam 10 mg tablet RxNorm: 795446 Tablet(s) PO TAKE 1 TABLET BY MOUTH THREE TIMES DAILY NEEDED 05/29/20142013 Inactive (Appended: Controlled substance eRx refill - RxReferenceNumber: [id number]|1|0|1) hydrocodone 10 mg-acetaminophen 325 mg tablet RxNorm: 085903 Tablet(s) TAKE 1-2 TABLETS BY MOUTH EVERY 6 HOURS NEEDED FOR PAIN 05/17/2014 06/13/2014 Inactive ( Response to an electronic controlled substance refill request - RxReferenceNumber: [id number]|1|0|1) diazepam 10 mg tablet RxNorm: 366993 Tablet(s) PO TAKE 1 TABLET BY MOUTH THREE TIMES DAILY NEEDED 04/27/20142013 Inactive (Appended: Controlled substance eRx refill - RxReferenceNumber: [id number]|1|0|1) Anucort-HC 25 mg suppository RxNorm: 2263486 1 SUPPOSITORY RTL QDAY PRN NEEDED 04/03/2014 06/01/2014 Inactive metoprolol tartrate 25 mg tablet RxNorm: 725161 1/2 TABLET(S) PO BID TAKE 1/2 TABLET BY MOUTH TWICE DAILY 04/03/201408/2014 Inactive Anucort-HC 25 mg suppository RxNorm: 8722064 1 SUPPOSITORY RTL QDAY PRN NEEDED 04/03/2014 06/01/2014 Inactive Seroquel 100 mg tablet RxNorm: 253079 1 TABLET(S) PO BID 201312/28/2014 Inactive TAKE 1 TABLET BY MOUTH TWICE DAILY Anucort-HC 25 mg suppository RxNorm: 1941836 1 SUPPOSITORY RTL QDAY PRN NEEDED 04/03/2014 06/01/2014 Inactive hydrocodone 10 mg-acetaminophen 325 mg tablet RxNorm: 826652 Tablet(s) TAKE 1-2 TABLETS BY MOUTH EVERY 6 HOURS NEEDED FOR PAIN 03/22/2014 04/20/2014 Inactive ( Response to an electronic controlled substance refill request - RxReferenceNumber: [id number]|1|0|1) Claritin-D 12 Hour 5 mg-120 mg tablet,extended release RxNorm: 0265549 1 Tablet(s ) PO BID 03/22/2014 2014 Inactive diazepam 10 mg tablet RxNorm: 299709 TAKE 1 TABLET BY MOUTH THREE TIMES DAILY NEEDED 03/19/2014 04/16/2014 Inactive (Response to an electronic controlled substance refill request - RxReferenceNumber: [id number]|1|0|1) Lipitor 20 mg tablet RxNorm: 173165 1 TABLET(S) PO DAILY 201312/05/2014 Inactive TAKE ONE TABLET BY MOUTH EVERY NIGHT AT BEDTIME Effexor XR 150 mg capsule,extended release RxNorm: 260023 1 CAPSULE(S) PO BID 03/01/2014 01/24/2015 Inactive TAKE 1 CAPSULE BY MOUTH TWICE DAILY Claritin-D 12 Hour 5 mg-120 mg tablet,extended release RxNorm: 3087412 1 Tablet(s ) PO BID 02/19/2014 03/21/2014 Inactive cyanocobalamin (vit B-12) 1,000 mcg/mL injection solution RxNorm: 320851 Milliliter(s) Inj 02/15/2014 02/15/2014 Inactive hydrocodone 10 mg-acetaminophen 325 mg tablet RxNorm: 841887 1 Tablet(s) PO Q6 PRN TAKE ONE TO TWO TABLETS BY MOUTH EVERY 6 HOURS NEEDED FOR PAIN 01/30/2014 01/30/2014 Inactive (Response to an electronic controlled substance refill request - RxReferenceNumber: [id number]|1|0|1) hydrocodone 10 mg-acetaminophen 325 mg tablet RxNorm: 831850 TAKE 1-2 TABLETS BY MOUTH EVERY 6 HOURS NEEDED FOR PAIN 01/30/2014 02/19/2014 Inactive (Response to an electronic controlled substance refill request - RxReferenceNumber: [id number]| [id number]|1|0|1) cyanocobalamin (vit B-12) 1,000 mcg/mL injection kit RxNorm: 799351 1 Milliliter(s ) Inj 01/15/2014 01/15/2014 Inactive Kenalog 40 mg/mL suspension for injection RxNorm: 7305206 1 Milliliter(s) Inj 01/15/2014 01/15/2014 Inactive Anucort-HC 25 mg suppository RxNorm: 4408137 1 Suppository RTL QDAY PRN as needed 01/15/2014 02/13/2014 Inactive hydrocodone 10 mg-acetaminophen 325 mg tablet RxNorm: 975663 TAKE ONE TO TWO TABLETS BY MOUTH EVERY 6 HOURS NEEDED FOR PAIN 12/29/2013 01/18/2014 Inactive ( Response to an electronic controlled substance refill request - RxReferenceNumber: [id number]|1|0|1) trazodone 100 mg tablet RxNorm: 003264 TAKE 2 TABLETS BY MOUTH EVERY NIGHT AT BEDTIME 12/20/2013 12/14/2014 Inactive mupirocin 2 % topical ointment RxNorm: 869214 1 APPLICATION TOP PRN 12/14/2013 01/09/2015 Inactive cyanocobalamin (vit B-12) 1,000 mcg/mL injection solution RxNorm: 089166 1 Milliliter(s) Inj 12/04/2013 12/04/2013 Inactive Savella 100 mg tablet RxNorm: 001355 1 Tablet(s) PO daily TAKE 1 TABLET BY MOUTH DAILY 11/28/2013 11/05/2016 Inactive Savella 100 mg tablet RxNorm: 546024 Tablet(s) PO TAKE 1 TABLET BY MOUTH DAILY 10/27/2013 11/27/2013 Inactive mupirocin 2 % topical ointment RxNorm: 987879 1 Application TOP PRN 10/17/2013 No Stop Date Active trazodone 100 mg tablet RxNorm: 207773 Tablet(s) PO TAKE 2 TABLETS BY MOUTH EVERY NIGHT AT BEDTIME 09/26/2013 11/05/2016 Inactive cyclobenzaprine 10 mg tablet RxNorm: 131628 Tablet(s) PO TAKE ONE TABLET BY MOUTH THREE TIMES DAILY 09/26/2013 01/07/2015 Inactive diazepam 10 mg tablet RxNorm: 303257 Tablet(s) PO TAKE 1 TABLET BY MOUTH THREE TIMES DAILY NEEDED 08/15/20132013 Inactive (Appended: Controlled substance eRx refill - RxReferenceNumber: [id number]|1|0|1) diazepam 10 mg tablet RxNorm: 055776 1 Tablet(s) PO TID PRN TAKE 1 TABLET BY MOUTH THREE TIMES DAILY NEEDED 08/15/2013 Inactive (Appended: Controlled substance eRx refill - RxReferenceNumber: [id number]|1|0|1) Vitamin B-12 1,000 mcg/mL injection solution RxNorm: 102494 Milliliter(s) Inj 07/24/2013 07/24/2013 Inactive pantoprazole 40 mg tablet,delayed release RxNorm: 120590 Tablet(s) PO TAKE 1 TABLET BY MOUTH EVERY DAY 07/20/201308/08 Inactive hydrocodone 10 mg-acetaminophen 325 mg tablet RxNorm: 623370 1 or 2 Tablet(s) PO Q6 PRN limit 6 per day 06/26/20132013 Inactive (Appended: Controlled substance eRx refill - RxReferenceNumber: [id number]|1|0|1) trazodone 100 mg tablet RxNorm: 104710 Tablet(s) PO TAKE 2 TABLETS BY MOUTH EVERY NIGHT AT BEDTIME 06/26/2013 11/05/2016 Inactive pantoprazole 40 mg tablet,delayed release RxNorm: 873438 Tablet(s) PO TAKE 1 TABLET BY MOUTH EVERY DAY 06/20/201306/05 Inactive prednisone 10 mg tablets in a dose pack RxNorm: 900883 Tablet(s) PO 6-5-4-3-2-1 06/13/2013 06/12/2013 Inactive prednisone 10 mg tablets in a dose pack RxNorm: 863958 Tablet(s) PO UD 6-5-4-3-2- 1 06/13/2013 06/18/2013 Inactive Silvadene 1 % topical cream RxNorm: 353378 1 TOP daily apply thin layer to left knee daily 06/12/2013 06/18/2013 Inactive metoprolol tartrate 25 mg tablet RxNorm: 369876 1/2 Tablet(s) PO BID TAKE 1/2 TABLET BY MOUTH TWICE DAILY 05/19/2013 Inactive Lipitor 20 mg tablet RxNorm: 240013 1 Tablet(s) PO daily 201203/11/2014 Inactive TAKE ONE TABLET BY MOUTH EVERY NIGHT AT BEDTIME Vitamin B-12 1,000 mcg/mL injection solution RxNorm: 790804 1 Milliliter(s) Inj 05/10/2013 05/10/2013 Inactive hydrocodone 10 mg-acetaminophen 325 mg tablet RxNorm: 723687 1 or 2 Tablet(s) PO Q6 PRN limit 6 per day 03/16/2013 No Stop Date Active (Appended: Controlled substance eRx refill - RxReferenceNumber: [id number]|1|0|1) Seroquel 100 mg tablet RxNorm: 539442 1 Tablet(s) PO BID 201203/10/2014 Inactive TAKE 1 TABLET BY MOUTH TWICE DAILY Effexor XR 150 mg capsule,extended release RxNorm: 431498 1 Capsule(s) PO BID 03/16/2013 02/28/2014 Inactive TAKE 1 CAPSULE BY MOUTH TWICE DAILY fluconazole 150 mg tablet RxNorm: 762775 1 Tablet(s) PO daily 03/06/2013 03/12/2013 Inactive Kenalog 40 mg/mL Susp for Injection RxNorm: 5462382 Milliliter(s) Inj 03/06/2013 03/06/2013 Inactive Ventolin HFA 90 mcg/actuation Aerosol Inhaler RxNorm: 4888349 1 or 2 Puff(s) INH Q6 PRN 02/20/2013 03/16/2014 Inactive cyanocobalamin (vitamin B-12) 1,000 mcg/mL Injection RxNorm: 206921 Milliliter(s) Inj 02/20/2013 02/20/2013 Inactive Valium 10 mg tablet RxNorm: 342164 1 Tablet(s) PO Q8 PRN 01/3102/24/2014 Inactive Kenalog 40 mg/mL Susp for Injection RxNorm: 2466588 Milliliter(s) Inj 12/26/2012 12/26/2012 Inactive cyanocobalamin (vitamin B-12) 1,000 mcg/mL Injection RxNorm: 004223 Milliliter(s) Inj 12/21/2012 12/21/2012 Inactive hydrocodone 10 mg-acetaminophen 325 mg tablet RxNorm: 9984632 1 or 2 Tablet(s) PO Q6 PRN limit 6 per day 11/25/20122012 Inactive (Appended: Controlled substance eRx refill - RxReferenceNumber: [id number]|1|0|1) diazepam 10 mg tablet RxNorm: 485326 1 Tablet(s) PO TID PRN 08/15/2013 Inactive TAKE 1 TABLET BY MOUTH THREE TIMES DAILY NEEDED (Appended: Controlled substance eRx refill - RxReferenceNumber: [id number]|1|0|1) diazepam 10 mg tablet RxNorm: 276336 Tablet(s) PO TAKE 1 TABLET BY MOUTH THREE TIMES DAILY NEEDED 11/21/20122013 Inactive (Appended: Controlled substance eRx refill - RxReferenceNumber: [id number]|1|0|1) Vitamin B-12 1,000 mcg/mL Injection RxNorm: 141941 1 Milliliter(s) Inj 11/16/2012 11/16/2012 Inactive hydrocodone 10 mg-acetaminophen 325 mg tablet RxNorm: 5739769 1 or 2 Tablet(s) PO Q6 PRN limit 6 per day 10/24/20122012 Inactive (Appended: Controlled substance eRx refill - RxReferenceNumber: [id number]|1|0|1) hydrocodone 10 mg-acetaminophen 325 mg tablet RxNorm: 9774737 Tablet(s) PO limit 5x days 10/24/2012 10/23/2012 Inactive (Appended: Controlled substance eRx refill - RxReferenceNumber: [id number]|1|0|1) Savella 100 mg tablet RxNorm: 496645 Tablet(s) PO TAKE 1 TABLET BY MOUTH DAILY 10/14/2012 12/05/2014 Inactive Tubersol 5 tub. unit/0.1 mL Intradermal RxNorm: 140414 Milliliter(s) IDrm 09/26/2012 09/26/2012 Inactive hydrocodone 10 mg-acetaminophen 325 mg tablet RxNorm: 2203784 1 Tablet(s) PO Q4 PRN q 4 hr prn limit 5 per day 09/19/2012 No Stop Date Active (Appended: Controlled substance eRx refill - RxReferenceNumber: [id number]|1|0|1) hydrocodone 10 mg-acetaminophen 325 mg tablet RxNorm: 7781731 Tablet(s) PO TAKE 1 TABLET BY MOUTH FOUR TIMES DAILY 09/16/2012 10/23/2012 Inactive (Appended: Controlled substance eRx refill - RxReferenceNumber: [id number]|1|0|1) cyclobenzaprine 10 mg tablet RxNorm: 055968 Tablet(s) PO TAKE ONE TABLET BY MOUTH THREE TIMES DAILY 09/16/2012 09/25/2013 Inactive hydrocodone 10 mg-acetaminophen 325 mg tablet RxNorm: 3017374 1 Tablet(s) PO Q4 PRN q 4 hr prn limit 5 per day 09/14/2012 09/19/2012 Inactive (Appended: Controlled substance eRx refill - RxReferenceNumber: [id number]|1|0|1) cyanocobalamin (vitamin B-12) 1,000 mcg/mL Injection RxNorm: 611905 1 Milliliter(s ) Inj 09/12/2012 09/12/2012 Inactive cyclobenzaprine 10 mg tablet RxNorm: 355297 Tablet(s) PO TAKE ONE TABLET BY MOUTH THREE TIMES DAILY 09/02/2012 09/15/2012 Inactive hydrocodone 10 mg-acetaminophen 325 mg tablet RxNorm: 6796134 1 Tablet(s) PO QID TAKE 1 TABLET BY MOUTH FOUR TIMES DAILY 08/23/2012 09/13/2012 Inactive (Appended: Controlled substance eRx refill - RxReferenceNumber: [id number]|1|0|1) Kenalog 40 mg/mL Susp for Injection RxNorm: 7744286 1 Milliliter(s) Inj 08/11/2012 08/11/2012 Inactive Vitamin B-12 1,000 mcg/mL Injection RxNorm: 757553 1 Milliliter(s) Inj 08/11/2012 08/11/2012 Inactive Zithromax 250 mg tablet RxNorm: 519165 Tablet(s) PO 07/21/2012 09/14/2012 Inactive please give z lauro cefdinir 300 mg capsule RxNorm: 128033 1 Capsule(s) PO BID 07/20/2012 Inactive cefdinir 300 mg capsule RxNorm: 687713 1 Capsule(s) PO BID 07/27/2012 Inactive diazepam 10 mg tablet RxNorm: 433061 1 Tablet(s) PO TID PRN 12/201211/22/2012 Inactive TAKE 1 TABLET BY MOUTH THREE TIMES DAILY NEEDED (Appended: Controlled substance eRx refill - RxReferenceNumber: [id number]|1|0|1) Vitamin B-12 1,000 mcg/mL Injection RxNorm: 823508 1 Milliliter(s) Inj 07/13/2012 07/13/2012 Inactive pantoprazole 40 mg tablet,delayed release RxNorm: 662032 1 Tablet(s) PO daily 06/14/2012 06/13/2012 Inactive pantoprazole 40 mg tablet,delayed release RxNorm: 761843 1 Tablet(s) PO daily 06/14/2012 06/19/2013 Inactive trazodone 100 mg tablet RxNorm: 189112 Tablet(s) PO TAKE 2 TABLETS BY MOUTH EVERY NIGHT AT BEDTIME 06/06/2012 11/05/2016 Inactive hydrocodone 10 mg-acetaminophen 325 mg tablet RxNorm: 7052613 Tablet(s) PO TAKE 1 TABLET BY MOUTH FOUR TIMES DAILY 05/24/2012 08/23/2012 Inactive (Appended: Controlled substance eRx refill - RxReferenceNumber: [id number]|1|0|1) Symbicort 160 mcg-4.5 mcg/actuation HFA Aerosol Inhaler RxNorm: 4563216 1 INH daily 05/24/2012 05/23/2012 Inactive this is an increase in dosing Symbicort 160 mcg-4.5 mcg/actuation HFA Aerosol Inhaler RxNorm: 9625037 1 INH daily 05/24/2012 06/17/2013 Inactive this is an increase in dosing Ventolin HFA 90 mcg/actuation Aerosol Inhaler RxNorm: 931144 1 or 2 Puff(s) INH Q6 PRN 05/24/2012 05/23/2012 Inactive Ventolin HFA 90 mcg/actuation Aerosol Inhaler RxNorm: 793742 1 or 2 Puff(s) INH Q6 PRN 05/24/2012 02/19/2013 Inactive metoprolol tartrate 25 mg tablet RxNorm: 068599 Tablet(s) PO TAKE 1/2 TABLET BY MOUTH TWICE DAILY 05/24/2012 05/18/2013 Inactive hydrocodone-acetaminophen 10 mg-325 mg tablet RxNorm: 5042846 Tablet(s) PO TAKE 1 TABLET BY MOUTH FOUR TIMES DAILY 05/17/2012 05/17/2012 Inactive (Appended: Controlled substance eRx refill - RxReferenceNumber: [id number]|1|0|1) diazepam 10 mg tablet RxNorm: 032822 Tablet(s) PO 05/03/2012 07/13/2012 Inactive TAKE 1 TABLET BY MOUTH THREE TIMES DAILY NEEDED (Appended: Controlled substance eRx refill - RxReferenceNumber: [id number]|1|0|1) metoprolol tartrate 25 mg tablet RxNorm: 169804 Tablet(s) PO 11/05/2016 Inactive TAKE 1/2 TABLET BY MOUTH TWICE DAILY hydrocodone-acetaminophen 10 mg-325 mg tablet RxNorm: 3876632 Tablet(s) PO 04/11/2012 05/17/2012 Inactive TAKE 1 TABLET BY MOUTH FOUR TIMES DAILY (Appended: Controlled substance eRx refill - RxReferenceNumber: [id number]|1|0|1) ProAir HFA 90 mcg/actuation Aerosol Inhaler RxNorm: 319062 2 INH Q4 PRN 04/05/2012 04/29/2013 Inactive Symbicort 80 mcg-4.5 mcg/actuation HFA Aerosol Inhaler RxNorm: 0516816 2 INH BID 04/05/2012 04/04/2012 Inactive Symbicort 80 mcg-4.5 mcg/actuation HFA Aerosol Inhaler RxNorm: 4510455 2 INH BID 04/05/2012 05/23/2012 Inactive ProAir HFA 90 mcg/actuation Aerosol Inhaler RxNorm: 790132 2 INH Q4 PRN 04/05/2012 04/04/2012 Inactive diazepam 10 mg tablet RxNorm: 742031 Tablet(s) PO 03/17/2012 05/03/2012 Inactive TAKE 1 TABLET BY MOUTH THREE TIMES DAILY NEEDED (Appended: Controlled substance eRx refill - RxReferenceNumber: [id number]|1|0|1) Effexor XR 150 mg capsule,extended release RxNorm: 473257 Capsule(s) PO 03/13/2012 03/15/2013 Inactive TAKE 1 CAPSULE BY MOUTH TWICE DAILY fluconazole 150 mg tablet RxNorm: 858118 1 Tablet(s) PO daily 03/11/2012 03/17/2012 Inactive Lipitor 20 mg tablet RxNorm: 568981 Tablet(s) PO 02/25/2012 03/20/2013 Inactive TAKE ONE TABLET BY MOUTH EVERY NIGHT AT BEDTIME Seroquel 100 mg tablet RxNorm: 826320 1 Tablet(s) PO BID 201102/18/2013 Inactive TAKE 1 TABLET BY MOUTH TWICE DAILY hydrocodone-acetaminophen 10 mg-325 mg tablet RxNorm: 6491125 Tablet(s) PO 02/25/2012 04/11/2012 Inactive TAKE 1 TABLET BY MOUTH FOUR TIMES DAILY . (Appended : Controlled substance eRx refill - RxReferenceNumber: [id number]|1|0|1) Seroquel 100 mg tablet RxNorm: 406511 1 Tablet(s) PO BID 201102/24/2012 Inactive TAKE 1 TABLET BY MOUTH TWICE DAILY Nexium 40 mg capsule,delayed release RxNorm: 216119 1 Capsule(s) PO daily 02/16/2012 06/13/2012 Inactive Effexor XR 150 mg capsule,extended release RxNorm: 736637 Capsule(s) PO 01/14/2012 11/05/2016 Inactive TAKE 1 CAPSULE BY MOUTH TWICE DAILY Kenalog 40 mg/mL Susp for Injection RxNorm: 3188637 1 Milliliter(s) Inj 01/13/2012 01/13/2012 Inactive Vitamin B-12 1,000 mcg/mL Injection RxNorm: 687225 Milliliter(s) Inj 12/21/2011 12/21/2011 Inactive hydrocodone-acetaminophen 10 mg-325 mg tablet RxNorm: 9171279 Tablet(s) PO 12/15/2011 02/25/2012 Inactive TAKE 1 TABLET BY MOUTH FOUR TIMES DAILY (Appended: Controlled substance eRx refill - RxReferenceNumber: [id number]|1|0|1) diazepam 10 mg tablet RxNorm: 143230 Tablet(s) PO 12/15/2011 03/17/2012 Inactive TAKE 1 TABLET BY MOUTH THREE TIMES DAILY NEEDED (Appended: Controlled substance eRx refill - RxReferenceNumber: [id number]|1|0|1) diazepam 10 mg Tab RxNorm: 384050 1 Tablet(s) PO daily 201112/15/2011 Inactive TAKE 1 TABLET BY MOUTH THREE TIMES DAILY (Appended: Controlled substance eRx refill - RxReferenceNumber: [id number]|1|0|1) hydrocodone-acetaminophen 10 mg-325 mg Tab RxNorm: 4315929 1 Tablet(s) PO QID 12/14/2011 12/15/2011 Inactive TAKE 1 TABLET BY MOUTH FOUR TIMES DAILY (Appended: Controlled substance eRx refill - RxReferenceNumber: [id number]|1|0|1) Seroquel 100 mg tablet RxNorm: 850803 Tablet(s) PO 11/27/2011 03/15/2013 Inactive TAKE 1 TABLET BY MOUTH TWICE DAILY hydrocodone-acetaminophen 10 mg-325 mg Tab RxNorm: 8956306 1 Tablet(s) PO QID 11/27/2011 12/13/2011 Inactive TAKE 1 TABLET BY MOUTH FOUR TIMES DAILY (Appended: Controlled substance eRx refill - RxReferenceNumber: [id number]|1|0|1) Seroquel 100 mg Tab RxNorm: 783970 1 Tablet(s) PO BID 201111/26/2011 Inactive Seroquel 100 mg tablet RxNorm: 355828 Tablet(s) PO 11/27/2011 02/16/2012 Inactive TAKE 1 TABLET BY MOUTH TWICE DAILY Nexium 40 mg capsule,delayed release RxNorm: 223885 1 Capsule(s) PO daily 11/16/2011 02/15/2012 Inactive cyanocobalamin (vitamin B-12) 1,000 mcg/mL Injection RxNorm: 275367 1 Milliliter(s ) Inj 10/30/2011 10/30/2011 Inactive hydrocodone-acetaminophen 10 mg-325 mg Tab RxNorm: 6891167 1 Tablet(s) PO QID 10/13/2011 11/23/2011 Inactive TAKE 1 TABLET BY MOUTH FOUR TIMES DAILY (Appended: Controlled substance eRx refill - RxReferenceNumber: [id number]|1|0|1) Effexor XR 150 mg capsule,extended release RxNorm: 360642 1 Capsule(s) PO BID 10/12/2011 01/09/2012 Inactive Fish Oil 1,000 mg Cap RxNorm: 1 Capsule(s) PO QID 10/02/2011 No Stop Date Active Vitamin B-12 1,000 mcg/mL Injection RxNorm: 262267 Milliliter(s) Inj 10/02/2011 10/02/2011 Inactive Kenalog 40 mg/mL Susp for Injection RxNorm: 2018388 Milliliter(s) Inj 10/02/2011 10/02/2011 Inactive diazepam 10 mg Tab RxNorm: 862513 1 Tablet(s) PO daily 201112/13/2011 Inactive TAKE 1 TABLET BY MOUTH THREE TIMES DAILY (Appended: Controlled substance eRx refill - RxReferenceNumber: [id number]|1|0|1) Vitamin B-12 1,000 mcg/mL Injection RxNorm: 992156 Milliliter(s) Inj 09/01/2011 09/01/2011 Inactive hydrocodone-acetaminophen 10 mg-325 mg Tab RxNorm: 3917046 1 Tablet(s) PO QID 08/25/2011 10/05/2011 Inactive TAKE 1 TABLET BY MOUTH FOUR TIMES DAILY (Appended: Controlled substance eRx refill - RxReferenceNumber: [id number]|1|0|1) diazepam 10 mg Tab RxNorm: 150391 Tablet(s) PO 08/10/2011 No Stop Date Active TAKE 1 TABLET BY MOUTH THREE TIMES DAILY (Appended: Controlled substance eRx refill - RxReferenceNumber: [id number]|1|0|1) Vitamin B-12 1,000 mcg/mL Injection RxNorm: 533880 Milliliter(s) Inj 08/03/2011 08/03/2011 Inactive fluticasone 50 mcg/actuation Nasal [place], Susp RxNorm: 8614845 2 [place] NASAL BID 07/27/2011 08/19/2012 Inactive hydrocodone-acetaminophen 10 mg-325 mg Tab RxNorm: 4621188 Tablet(s) PO 07/09/2011 08/24/2011 Inactive TAKE 1 TABLET BY MOUTH FOUR TIMES DAILY (Appended: Controlled substance eRx refill - RxReferenceNumber: [id number]|1|0|1) diazepam 10 mg Tab RxNorm: 390458 Tablet(s) PO 07/09/2011 08/09/2011 Inactive TAKE 1 TABLET BY MOUTH THREE TIMES DAILY (Appended: Controlled substance eRx refill - RxReferenceNumber: [id number]|1|0|1) diazepam 10 mg Tab RxNorm: 938865 Tablet(s) PO 07/08/2011 07/08/2011 Inactive TAKE 1 TABLET BY MOUTH THREE TIMES DAILY (Appended: Controlled substance eRx refill - RxReferenceNumber: [id number]|1|0|1) hydrocodone-acetaminophen 10 mg-325 mg Tab RxNorm: 0127165 Tablet(s) PO 07/08/2011 07/08/2011 Inactive TAKE 1 TABLET BY MOUTH FOUR TIMES DAILY (Appended: Controlled substance eRx refill - RxReferenceNumber: [id number]|1|0|1) cyclobenzaprine 10 mg tablet RxNorm: 397353 Tablet(s) PO 201109/01/2012 Inactive TAKE ONE TABLET BY MOUTH THREE TIMES DAILY Lipitor 40 mg Tab RxNorm: 280024 1 Tablet(s) PO daily 201106/16/2011 Inactive Lipitor 40 mg Tab RxNorm: 391307 1 Tablet(s) PO daily 201106/10/2012 Inactive trazodone 100 mg tablet RxNorm: 547115 Tablet(s) PO 06/02/2011 06/05/2012 Inactive TAKE 2 TABLETS BY MOUTH EVERY NIGHT AT BEDTIME diazepam 10 mg Tab RxNorm: 485465 Tablet(s) PO 05/28/2011 05/29/2011 Inactive TAKE 1 TABLET BY MOUTH THREE TIMES DAILY (Appended: Controlled substance eRx refill - RxReferenceNumber: [id number]|1|0|1) diazepam 10 mg Tab RxNorm: 347858 Tablet(s) PO 05/28/2011 07/08/2011 Inactive TAKE 1 TABLET BY MOUTH THREE TIMES DAILY (Appended: Controlled substance eRx refill - RxReferenceNumber: [id number]|1|0|1) hydrocodone-acetaminophen 10 mg-325 mg Tab RxNorm: 1160753 1 Tablet(s) PO QID 05/26/2011 07/08/2011 Inactive metoprolol tartrate 25 mg tablet RxNorm: 379762 Tablet(s) PO 04/10/2012 Inactive TAKE 1/2 TABLET BY MOUTH TWICE DAILY Savella 100 mg tablet RxNorm: 715567 Tablet(s) PO 05/14/2011 10/13/2012 Inactive TAKE 1 TABLET BY MOUTH DAILY Influenza Virus Vaccine 0.5 mL RxNorm: IM 02/23/2011 02/23/2011 Inactive B12 1000 mcg RxNorm: IM 02/23/20112010 Inactive hydrocodone-acetaminophen 10 mg-325 mg Tab RxNorm: 9178545 1 Tablet(s) PO QID 01/29/2011 01/28/2011 Inactive Restasis 0.05 % eye drops in a dropperette RxNorm: 952423 1 OPH BID No Start Date Active vitamin A-vit C-vit E-zinc-Se Tab RxNorm: 1 Tablet(s) PO daily No Start Date Active garlic extract Oral RxNorm: Oral No Start Date Active Acidophilus Tab RxNorm : 2 Tablet(s) PO QHS No Start Date Active Cranberry Concentrate Cap RxNorm: 1 Capsule(s) PO BID No Start Date Active Xopenex 1.25 mg/3 mL Neb Solution RxNorm: 103919 1 Milliliter(s) INH TID No Start Date Active niacin ER 500 mg Tab RxNorm: 396827 2 Tablet(s) PO HS No Start Date Active SenokotXTRA 17.2 mg Tab RxNorm: 7872741 Oral No Start Date Active Lotemax 0.5 % eye ointment RxNorm: 9675900 1 OPH QHS No Start Date Active Gaviscon Extra Strength Oral RxNorm: Oral No Start Date Active melatonin 3 mg Tab RxNorm: 713303 1 Tablet(s) PO QHS No Start Date Active Voltaren 1 % Topical Gel RxNorm: 980323 4 Gram(s) TOP QID No Start Date Active Vitamin D 1,000 unit Cap RxNorm: 260464 1 Capsule(s) PO QHS No Start Date Active Mucinex DM 30 mg-600 mg 12 hr Tab RxNorm: 1033978 1 Tablet(s) PO BID No Start Date Active calcium citrate 200 mg (950 mg) Tab RxNorm: 556025 1 Tablet(s) PO QID No Start Date Active valerian 530 mg Cap RxNorm: 2 Capsule(s) PO QHS No Start Date Active Anucort-HC 25 mg Suppository RxNorm: 2613750 1 Suppository RTL QDAY PRN No Start Date 01/14/2014 Inactive Nexium 40 mg Capsule, delayed release RxNorm: 688104 1 Capsule(s) PO daily No Start Date 11/15/2011 Inactive Lipitor 20 mg tablet RxNorm: 285281 1 Tablet(s) PO QHS No Start Date 02/25/2012 Inactive mupirocin 2 % topical ointment RxNorm: 885328 1 Application TOP PRN No Start Date 10/16/2013 Inactive fluconazole 150 mg tablet RxNorm: 432758 1 Tablet(s) PO daily No Start Date 03/10/2012 Inactive Fish Oil 1,000 mg Cap RxNorm: 1 Capsule(s) PO TID No Start Date 10/01/2011 Inactive hydrocodone-acetaminophen 10 mg-325 mg Tab RxNorm: 7531569 1 Tablet(s) PO QID No Start Date 05/25/2011 Inactive Zithromax 250 mg tablet RxNorm: 263837 Tablet(s) PO No Start Date 07/20/2012 Inactive please give z lauro prednisone 10 mg tablet RxNorm: 886638 Tablet(s) PO taper. 6-5-4-3-2-1 # 21 No Start Date 09/16/2017 Inactive fluticasone 50 mcg/actuation Nasal [place], Susp RxNorm: 9179412 2 [place] NASAL BID No Start Date 07/26/2011 Inactive Seroquel 100 mg Tab RxNorm: 893202 1 Tablet(s) PO BID No Start Date 11/26/2011 Inactive nystatin 100,000 unit/gram topical powder RxNorm: 511300 1 Application TOP QID until healed No Start Date 10/26/2016 Inactive Savella 100 mg Tab RxNorm: 612031 1 Tablet(s) PO daily No Start Date 05/13/2011 Inactive cyclobenzaprine 10 mg Tab RxNorm: 081325 1 Tablet(s) PO TID No Start Date 07/05/2011 Inactive metoprolol tartrate 25 mg Tab RxNorm: 815556 1/2 Tablet(s) PO BID No Start Date 05/25/2011 Inactive trazodone 100 mg Tab RxNorm: 067736 2 Tablet(s) PO QHS No Start Date 06/01/2011 Inactive Zithromax Z-Lauro 250 mg tablet RxNorm: 531436 1 Tablet(s) PO UD No Start Date 07/11/2015 Inactive z lauro Effexor XR 150 mg 24 hr Cap RxNorm: 357312 1 Capsule(s) PO BID No Start Date 10/11/2011 Inactive diazepam 10 mg Tab RxNorm: 612508 1 Tablet(s) PO TID No Start Date 05/28/2011 Inactive tramadol 50 mg tablet RxNorm: 482734 1-2 Tablet(s) PO Q6 as needed No Start Date 05/28/2015 Inactive Medication Administered Medication Codes Instructions Start Date Status cyanocobalamin (vit B-12) 1,000 mcg/mL injection solution RxNorm: 034041 1Milliliter 03/10/2018 No longer Active cyanocobalamin (vit B-12) 1,000 mcg/mL injection solution RxNorm: 634614 1Milliliter 10/19/2017 No longer Active cyanocobalamin (vit B-12) 1,000 mcg/mL injection solution RxNorm: 383295 1Milliliter 08/19/2017 No longer Active cyanocobalamin (vit B-12) 1,000 mcg/mL injection solution RxNorm: 932342 1Milliliter 07/06/2017 No longer Active cyanocobalamin (vit B-12) 1,000 mcg/mL injection solution RxNorm: 356816 1Milliliter 04/27/2017 No longer Active cyanocobalamin (vit B-12) 1,000 mcg/mL injection solution RxNorm: 859116 1Milliliter 11/17/2016 No longer Active cyanocobalamin (vit B-12) 1,000 mcg/mL injection solution RxNorm: 433028 1Milliliter 10/12/2016 No longer Active cyanocobalamin (vit B-12) 1,000 mcg/mL injection solution RxNorm: 991144 1Milliliter 09/11/2016 No longer Active cyanocobalamin (vit B-12) 1,000 mcg/mL injection solution RxNorm: 926946 Milliliter 07/03/2016 No longer Active cyanocobalamin (vit B-12) 1,000 mcg/mL injection solution RxNorm: 794819 1Milliliter 04/20/2016 No longer Active cyanocobalamin (vit B-12) 1,000 mcg/mL injection solution RxNorm: 620091 Milliliter 02/13/2016 No longer Active cyanocobalamin (vit B-12) 1,000 mcg/mL injection solution RxNorm: 070980 1Milliliter 12/02/2015 No longer Active cyanocobalamin (vit B-12) 1,000 mcg/mL injection solution RxNorm: 337623 1Milliliter 10/29/2015 No longer Active cyanocobalamin (vit B-12) 1,000 mcg/mL injection solution RxNorm: 225503 Milliliter 06/10/2015 No longer Active cyanocobalamin (vit B-12) 1,000 mcg/mL injection solution RxNorm: 841285 Milliliter 02/15/2014 No longer Active cyanocobalamin (vit B-12) 1,000 mcg/mL injection kit RxNorm : 203577 1Milliliter 01/15/2014 No longer Active Kenalog 40 mg/mL suspension for injection RxNorm: 0381221 1Milliliter 01/15/2014 No longer Active cyanocobalamin (vit B-12) 1,000 mcg/mL injection solution RxNorm: 877993 1Milliliter 12/04/2013 No longer Active Vitamin B-12 1,000 mcg/mL injection solution RxNorm: 810822 Milliliter 07/24/2013 No longer Active Vitamin B-12 1,000 mcg/mL injection solution RxNorm: 151805 1Milliliter 05/10/2013 No longer Active Kenalog 40 mg/mL Susp for Injection RxNorm: 3521464 Milliliter 03/06/2013 No longer Active cyanocobalamin (vitamin B-12) 1,000 mcg/mL Injection RxNorm : 110713 Milliliter 02/20/2013 No longer Active Kenalog 40 mg/mL Susp for Injection RxNorm: 4037815 Milliliter 12/26/2012 No longer Active cyanocobalamin (vitamin B-12) 1,000 mcg/mL Injection RxNorm : 873999 Milliliter 12/21/2012 No longer Active Vitamin B-12 1,000 mcg/mL Injection RxNorm: 748232 1Milliliter 11/16/2012 No longer Active Tubersol 5 tub. unit/0.1 mL Intradermal RxNorm: 075935 Milliliter 09/26/2012 No longer Active cyanocobalamin (vitamin B-12) 1,000 mcg/mL Injection RxNorm : 972844 1Milliliter 09/12/2012 No longer Active Kenalog 40 mg/mL Susp for Injection RxNorm: 3174987 1Milliliter 08/11/2012 No longer Active Vitamin B-12 1,000 mcg/mL Injection RxNorm: 900168 1Milliliter 08/11/2012 No longer Active Vitamin B-12 1,000 mcg/mL Injection RxNorm: 900328 1Milliliter 07/13/2012 No longer Active Kenalog 40 mg/mL Susp for Injection RxNorm: 6916762 1Milliliter 01/13/2012 No longer Active Vitamin B-12 1,000 mcg/mL Injection RxNorm: 991727 Milliliter 12/21/2011 No longer Active cyanocobalamin (vitamin B-12) 1,000 mcg/mL Injection RxNorm : 195290 1Milliliter 10/30/2011 No longer Active Vitamin B-12 1,000 mcg/mL Injection RxNorm: 056679 Milliliter 10/02/2011 No longer Active Kenalog 40 mg/mL Susp for Injection RxNorm: 2216075 Milliliter 10/02/2011 No longer Active Vitamin B-12 1,000 mcg/mL Injection RxNorm: 172283 Milliliter 09/01/2011 No longer Active Vitamin B-12 1,000 mcg/mL Injection RxNorm: 208540 Milliliter 08/03/2011 No longer Active Influenza Virus [...] 2011 Weight gain ICD-9: 783.1 06/29/2011 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 10/2010 Reason For Visit Reason [...] injuries from a fall (hurts after sitting "[place] style" abdominal pain 02/12/2011 joint complaint 01/29/2011 Results Observation Observation Code Item Item Code Result Date Comp Metabolic Hyd496 NA 138 mEq/L 09/20/2017 Comp Metabolic Sti772 K 4.1 mEq/L 09/20/2017 Comp Metabolic Rjp629 CL 101 mEq/L 09/20/2017 Comp Metabolic Kup953 CO2 25.0 mEq/L 09/20/2017 Comp Metabolic Eot804 ANION GAP 16 09/20/2017 Comp Metabolic Asj806 GLUCOSE 105 mg/dL 09/20/2017 Comp Metabolic Cgd914 Creat 0.8 mg/dL 09/20/2017 Comp Metabolic Ztm651 eGFR 86 ml/min/1.73m2 09/20/2017 Comp Metabolic Zah139 BUN 24 mg/dL 09/20/2017 Comp Metabolic Red901 B/C Ratio 31.6 Ratio 09/20/2017 Comp Metabolic Bdv455 CALCIUM 10.0 mg/dL 09/20/2017 Comp Metabolic Qub563 ALK PHOS 63 U/L 09/20/2017 Comp Metabolic Pjz448 AST(SGOT) 28 U/L 09/20/2017 Comp Metabolic Caf105 ALT(SGPT) 34 U/L 09/20/2017 Comp Metabolic Ukc931 BILI T 0.3 mg/dL 09/20/2017 Comp Metabolic Xbp128 ALBUMIN 4.8 g/dL 09/20/2017 Comp Metabolic Vio399 TPRO 7.2 g/dL 09/20/2017 Comp Metabolic Rvm595 GLOB 2.4 g/dL 09/20/2017 Comp Metabolic Kan666 A/G Ratio 2.0 Ratio 09/20/2017 Comp Metabolic Wbu209 Osmo 280 mOsmo 09/20/2017 Urine Culture Ucult Preliminary NO Growth Day 1 09/20/2017 Urine Culture Ucult Complete NO Growth Day 2 09/20/2017 Vitamin D 25 Oh Mrl5888 VITAMIN D, 25 HYDROXY 46.43 ng/mL Comp Metabolic Zki537 NA 143 mEq/L 08/25/2017 Comp Metabolic Mij435 K 4.1 mEq/L 08/25/2017 Comp Metabolic Glg918 CL 102 mEq/L 08/25/2017 Comp Metabolic Xwk561 CO2 33.0 mEq/L 08/25/2017 Comp Metabolic Gxs472 ANION GAP 12 08/25/2017 Comp Metabolic Vyk836 GLUCOSE 99 mg/dL 08/25/2017 Comp Metabolic Oyh690 Creat 0.8 mg/dL 08/25/2017 Comp Metabolic Oeg409 eGFR 86 ml/min/1.73m2 08/25/2017 Comp Metabolic Zlk554 BUN 19 mg/dL 08/25/2017 Comp Metabolic Ofr726 B/C Ratio 25.0 Ratio 08/25/2017 Comp Metabolic Kgf464 CALCIUM 9.5 mg/dL 08/25/2017 Comp Metabolic Wsk416 ALK PHOS 63 U/L 08/25/2017 Comp Metabolic Klv181 AST(SGOT) 17 U/L 08/25/2017 Comp Metabolic Dpx392 ALT(SGPT) 20 U/L 08/25/2017 Comp Metabolic Fwv899 BILI T 0.3 mg/dL 08/25/2017 Comp Metabolic Tnj200 ALBUMIN 4.5 g/dL 08/25/2017 Comp Metabolic Vlx064 TPRO 6.6 g/dL 08/25/2017 Comp Metabolic Pnm466 GLOB 2.1 g/dL 08/25/2017 Comp Metabolic Tsz296 A/G Ratio 2.1 Ratio 08/25/2017 Comp Metabolic Eiv011 Osmo 287 mOsmo 08/25/2017 B12 Pho782 B12 904.00 pg/ml 08/25/2017 Tsh Ord6 TSH [...] 103.4 fl 08/25/2017 Cbc With Differential Ord2 [place]% 7.5 % 08/25/2017 Cbc With Differential Ord2 MCH 32.3 pg 08/25/2017 Cbc With Differential Ord2 Eos% 1.3 % 08/25/2017 Cbc With Differential Ord2 MCHC 31.2 pg 08/25/2017 Cbc With Differential Ord2 PLT 205 K/ul 08/25/2017 Cbc With Differential Ord2 Baso% 0.1 % 08/25/2017 Cbc With Differential Ord2 Neut ABS# 3.47 K/ul 08/25/2017 Cbc With Differential Ord2 RDW 13.1 % 08/25/2017 Cbc With Differential Ord2 Lymph ABS# 3.65 K/ul 08/25/2017 Cbc With Differential Ord2 [place] ABS# 0.6 K/ul 08/25/2017 Cbc With Differential Ord2 Eos ABS# 0.1 K/ul 08/25/2017 Cbc With Differential Ord2 Baso ABS# 0.0 K/ul 08/25/2017 Tsh Ord6 hTSH II 1.18 uIU/mL 10/12/2016 Comp Metabolic Dpb235 NA 139 mEq/L 10/12/2016 Comp Metabolic Hhr051 K 3.5 mEq/L 10/12/2016 Comp Metabolic Sqi127 CL 102 mEq/L 10/12/2016 Comp Metabolic Ble846 CO2 25.0 mEq/L 10/12/2016 Comp Metabolic Zwb855 ANION GAP 16 10/12/2016 Comp Metabolic Ubu988 GLUCOSE 84 mg/dL 10/12/2016 Comp Metabolic Wjv788 Creat 0.6 mg/dL 10/12/2016 Comp Metabolic Uwv749 eGFR 105 ml/min/1.73m2 10/12/2016 Comp Metabolic Dkk820 BUN 12 mg/dL 10/12/2016 Comp Metabolic Sma373 B/C Ratio 18.8 Ratio 10/12/2016 Comp Metabolic Qfq368 CALCIUM 9.2 mg/dL 10/12/2016 Comp Metabolic Adr914 ALK PHOS 59 U/L 10/12/2016 Comp Metabolic Moa259 AST(SGOT) 21 U/L 10/12/2016 Comp Metabolic Zre193 ALT(SGPT) 27 U/L 10/12/2016 Comp Metabolic Cca011 BILI T 0.2 mg/dL 10/12/2016 Comp Metabolic Yvh297 ALBUMIN 4.4 g/dL 10/12/2016 Comp Metabolic Ico976 TPRO 6.7 g/dL 10/12/2016 Comp Metabolic Ftf710 GLOB 2.3 g/dL 10/12/2016 Comp Metabolic Gkr204 A/G Ratio 1.9 Ratio 10/12/2016 Comp Metabolic Fps403 Osmo 276 mOsmo 10/12/2016 Cbc With Differential [...] 103.0 fl 10/12/2016 Cbc With Differential Ord2 MCH 32.7 pg 10/12/2016 Cbc With Differential Ord2 [place]% 8.0 % 10/12/2016 Cbc With Differential Ord2 [...] 3.12 K/ul 10/12/2016 Cbc With Differential Ord2 [place] ABS# 0.8 K/ul 10/12/2016 Cbc With Differential Ord2 Eos ABS# 0.1 K/ul 10/12/2016 Cbc With Differential Ord2 Baso ABS# 0.0 K/ul 10/12/2016 Lipid Ord30 CHOL 194 mg/dL 10/12/2016 Lipid Ord30 HDL 76.0 mg/dl 10/12/2016 Lipid Ord30 TRIG 159 mg/dL 10/12/2016 Lipid Ord30 LDL 86 mg/dL 10/12/2016 Lipid Ord30 C/HDL 2.6 Ratio 10/12/2016 Comp Metabolic Puk179 NA 139 mEq/L 09/11/2016 Comp Metabolic Det953 K 3.6 mEq/L 09/11/2016 Comp Metabolic Ryi894 CL 102 mEq/L 09/11/2016 Comp Metabolic Dcp492 CO2 26.0 mEq/L 09/11/2016 Comp Metabolic Gha602 ANION GAP 15 09/11/2016 Comp Metabolic Upm862 GLUCOSE 90 mg/dL 09/11/2016 Comp Metabolic Egh814 Creat 0.6 mg/dL 09/11/2016 Comp Metabolic Fta236 eGFR 111 ml/min/1.73m2 09/11/2016 Comp Metabolic Fpy577 BUN 14 mg/dL 09/11/2016 Comp Metabolic Bgo089 B/C Ratio 23.0 Ratio 09/11/2016 Comp Metabolic Zli194 CALCIUM 9.0 mg/dL 09/11/2016 Comp Metabolic Afi304 ALK PHOS 56 U/L 09/11/2016 Comp Metabolic Ffv899 AST(SGOT) 21 U/L 09/11/2016 Comp Metabolic Jqm609 ALT(SGPT) 17 U/L 09/11/2016 Comp Metabolic Btc139 BILI T 0.2 mg/dL 09/11/2016 Comp Metabolic Xgl373 ALBUMIN 4.1 g/dL 09/11/2016 Comp Metabolic Hpf969 TPRO 6.5 g/dL 09/11/2016 Comp Metabolic Tgk581 GLOB 2.4 g/dL 09/11/2016 Comp Metabolic Unw069 A/G Ratio 1.7 Ratio 09/11/2016 Comp Metabolic Qqg476 Osmo 278 mOsmo 09/11/2016 Tsh Ord6 hTSH [...] 103.4 fl 09/11/2016 Cbc With Differential Ord2 [place]% 8.6 % 09/11/2016 Cbc With Differential Ord2 MCH 33.0 pg 09/11/2016 Cbc With Differential Ord2 Eos% [...] 3.35 K/ul 09/11/2016 Cbc With Differential Ord2 [place] ABS# 1.0 K/ul 09/11/2016 Cbc With Differential Ord2 Eos ABS# 0.1 K/ul 09/11/2016 Cbc With Differential Ord2 Baso ABS# 0.0 K/ul 09/11/2016 Lipid Ord30 CHOL 168 mg/dL 09/11/2016 Lipid Ord30 HDL 74.0 mg/dl 09/11/2016 Lipid Ord30 TRIG 167 mg/dL 09/11/2016 Lipid Ord30 LDL 61 mg/dL 09/11/2016 Lipid Ord30 C/HDL 2.3 Ratio 09/11/2016 B12 Tbs545 B12 474.00 pg/ml 09/11/2016 B12 Vhk597 B12 827.00 pg/ml 03/02/2016 Cbc With Differential [...] 108.3 fl 02/28/2016 Cbc With Differential Ord2 MCH 34.0 pg 02/28/2016 Cbc With Differential Ord2 [place]% 5.4 % 02/28/2016 Cbc With Differential Ord2 Eos% 1.8 % 02/28/2016 Cbc With Differential Ord2 MCHC 31.4 pg 02/28/2016 Cbc With Differential Ord2 Baso% 0.2 % 02/28/2016 Cbc With Differential Ord2 PLT 198 K/ul 02/28/2016 Cbc With Differential Ord2 Neut ABS# 3.02 K/ul 02/28/2016 Cbc With Differential Ord2 RDW 12.7 % 02/28/2016 Cbc With Differential Ord2 Lymph ABS# 2.08 K/ul 02/28/2016 Cbc With Differential Ord2 [place] ABS# 0.3 K/ul 02/28/2016 Cbc With Differential Ord2 Eos ABS# 0.1 K/ul 02/28/2016 Cbc With Differential Ord2 Baso ABS# 0.0 K/ul 02/28/2016 Sed Rate Ord21 ESR 5 mm/hr 02/28/2016 C-Reactive Protein Qnt Crqnt CRP 0.1 mg/dl 02/28/2016 Comp Metabolic Zaw413 NA 136 mEq/L 02/28/2016 Comp Metabolic Awa316 K 4.0 mEq/L 02/28/2016 Comp Metabolic Mre178 CL 103 mEq/L 02/28/2016 Comp Metabolic Kwd614 CO2 27.0 mEq/L 02/28/2016 Comp Metabolic Drn872 ANION GAP 10 02/28/2016 Comp Metabolic Xne531 GLUCOSE 138 mg/dL 02/28/2016 Comp Metabolic Rdg630 Creat 0.6 mg/dL 02/28/2016 Comp Metabolic Fni630 eGFR 120 ml/min/1.73m2 02/28/2016 Comp Metabolic Hpa672 BUN 15 mg/dL 02/28/2016 Comp Metabolic Cxg179 B/C Ratio 26.3 Ratio 02/28/2016 Comp Metabolic Rcg497 CALCIUM 8.8 mg/dL 02/28/2016 Comp Metabolic Gjs985 ALK PHOS 58 U/L 02/28/2016 Comp Metabolic Xpm166 AST(SGOT) 21 U/L 02/28/2016 Comp Metabolic Cas904 ALT(SGPT) 21 U/L 02/28/2016 Comp Metabolic Kcx991 BILI T 0.2 mg/dL 02/28/2016 Comp Metabolic Vdl307 ALBUMIN 3.8 g/dL 02/28/2016 Comp Metabolic Zkx613 TPRO 5.7 g/dL 02/28/2016 Comp Metabolic Ikx611 GLOB 1.9 g/dL 02/28/2016 Comp Metabolic Snl563 A/G Ratio 2.0 Ratio 02/28/2016 Comp Metabolic Ldx605 Osmo 275 mOsmo 02/28/2016 Tsh Ord6 hTSH II 1.25 uIU/mL 02/28/2016 B12 Ems742 B12 >1500.00 pg/ml 01/11/2016 Vitamin D 25 Oh Oaj1414 VITAMIN D, 25 HYDROXY 45.94 ng/mL Comp Metabolic Cae299 NA 136 mEq/L 03/21/2015 Comp Metabolic Wwb532 K 3.8 mEq/L 03/21/2015 Comp Metabolic Ffz496 CL 101 mEq/L 03/21/2015 Comp Metabolic Wqk506 CO2 31.0 mEq/L 03/21/2015 Comp Metabolic Bgf349 ANION GAP 8 03/21/2015 Comp Metabolic Yos556 GLUCOSE 101 mg/dL 03/21/2015 Comp Metabolic Mua615 Creat 0.7 mg/dL 03/21/2015 Comp Metabolic Wmr416 eGFR 94 ml/min/1.73m2 03/21/2015 Comp Metabolic Cra361 BUN 13 mg/dL 03/21/2015 Comp Metabolic Kfb208 B/C Ratio 18.3 Ratio 03/21/2015 Comp Metabolic Ivr145 CALCIUM 9.3 mg/dL 03/21/2015 Comp Metabolic Khy567 ALK PHOS 58 U/L 03/21/2015 Comp Metabolic Aem011 AST(SGOT) 18 U/L 03/21/2015 Comp Metabolic Wdw517 ALT(SGPT) 22 U/L 03/21/2015 Comp Metabolic Ovu230 BILI T 0.3 mg/dL 03/21/2015 Comp Metabolic Rvo977 ALBUMIN 4.4 g/dL 03/21/2015 Comp Metabolic Hbf426 TPRO 6.7 g/dL 03/21/2015 Comp Metabolic Qjp756 GLOB 2.3 g/dL 03/21/2015 Comp Metabolic Ari480 A/G Ratio 1.9 Ratio 03/21/2015 Comp Metabolic Qlw537 Osmo 272 mOsmo 03/21/2015 %Hba1C Ytl755 % HbA1c 28790-8 5.4 % 03/21/2015 %Hba1C Czo944 Gluc Ave 108 mg/dL 03/21/2015 Cbc With [...] 1.32 uIU/mL 03/21/2015 URINALYSIS NONAUTO W/O SCOPE 33912 Specific [place] 1.025 DateTime(Free Text in Aprima) URINALYSIS NONAUTO W/O SCOPE 93317 PH 5.0 DateTime(Free Text in Aprima) URINALYSIS NONAUTO W/O SCOPE 45324 GLUCOSE NEG DateTime( Free Text in Aprima) URINALYSIS NONAUTO W/O SCOPE 45444 Protein NEG DateTime( Free Text in Aprima) URINALYSIS NONAUTO W/O SCOPE 44958 Blood NEG DateTime(Free Text in Aprima) URINALYSIS NONAUTO W/O SCOPE 36100 Bilirubin NEG DateTime(Free Text in Aprima) URINALYSIS NONAUTO W/O SCOPE 56633 Ketones NEG DateTime( Free Text in Aprima) URINALYSIS NONAUTO W/O SCOPE 24166 Urobilinogen NEG DateTime(Free Text in Aprima) URINALYSIS NONAUTO W/O SCOPE 98588 Nitrite NEG DateTime( Free Text in Aprima) URINALYSIS NONAUTO W/O SCOPE 05028 Leukocytes NEG DateTime(Free Text in Aprima) Review [...] gait 03/06/2013 None Full Exam - General 1995 [...] accomodation 08/03/2011 None Full Exam - General 1995 Ears/Nose/Throat oral cavity/pharynx/larynx Overall: oral mucosa clear 08/03/2011 None Full Exam - General 1995 Ears/Nose/Throat [...] exam 06/22/2011 None Full Exam - General 1995 Musculoskeletal lower extremity Inspection - knee: swelling 06/22/2011 slight with bruising noted to right knee. Full Exam - General 1995 Musculoskeletal lower extremity Palpation - knee: prepatellar [...] Procedure Codes Date THER/PROPH/DIAG INJ SC/IM CPT-4: 60936 04/05/2018 VITAMIN B12 INJECTION CPT-4: J3420 04/05/2018 THER/PROPH/DIAG INJ SC/IM CPT-4: 22608 03/10/2018 VITAMIN B12 INJECTION CPT-4: J3420 03/10/2018 THER/PROPH/DIAG INJ SC/IM CPT-4: 41853 10/19/2017 VITAMIN B12 INJECTION CPT-4: J3420 10/19/2017 URINALYSIS NONAUTO W/O SCOPE CPT-4: 94750 09/17/2017 THER/PROPH/DIAG INJ SC/IM CPT-4: 92853 08/19/2017 VITAMIN B12 INJECTION CPT-4: J3420 08/19/2017 THER/PROPH/DIAG INJ SC/IM CPT-4: 56557 07/06/2017 VITAMIN B12 INJECTION CPT-4: J3420 07/06/2017 THER/PROPH/DIAG INJ SC/IM CPT-4: 01283 04/27/2017 VITAMIN B12 INJECTION CPT-4: J3420 04/27/2017 THER/PROPH/DIAG INJ SC/IM CPT-4: 42766 11/17/2016 VITAMIN B12 INJECTION CPT-4: J3420 11/17/2016 THER/PROPH/DIAG INJ SC/IM CPT-4: 76074 10/12/2016 VITAMIN B12 INJECTION CPT-4: J3420 10/12/2016 THER/PROPH/DIAG INJ SC/IM CPT-4: 35988 09/11/2016 VITAMIN B12 INJECTION CPT-4: J3420 09/11/2016 THER/PROPH/DIAG INJ SC/IM CPT-4: 07256 07/03/2016 VITAMIN B12 INJECTION CPT-4: J3420 07/03/2016 VITAMIN B12 INJECTION CPT-4: J3420 04/20/2016 THER/PROPH/DIAG INJ SC/IM CPT-4: 99012 04/20/2016 ADMIN INFLUENZA VIRUS VAC CPT-4: G0008 03/17/2016 IIV4 FLU VACC NO PRESERV ID Formatting Model/CDA Sections, Assigned to/Kathy Lopez SNOMED CT: [id number] CPT-4: [id number] 03/17/2016 THER/PROPH/DIAG INJ SC/IM CPT-4: 64361 02/13/2016 VITAMIN B12 INJECTION CPT-4: J3420 02/13/2016 URINALYSIS NONAUTO W/O SCOPE CPT-4: 19359 12/10/2015 THER/PROPH/DIAG INJ SC/IM CPT-4: 56259 12/02/2015 VITAMIN B12 INJECTION CPT-4: J3420 12/02/2015 PNEUMOCOCCAL VACC [address]: [id number] CPT-4: 74938 12/02/2015 IMMUNIZATION ADMIN CPT -4: 06112 12/02/2015 THER/PROPH/DIAG INJ SC/IM CPT-4: 03146 10/29/2015 VITAMIN B12 INJECTION CPT-4: J3420 10/29/2015 THER/PROPH/DIAG INJ SC/IM CPT-4: 59432 06/10/2015 VITAMIN B12 INJECTION CPT-4: J3420 06/10/2015 THER/PROPH/DIAG INJ SC/IM CPT-4: 13230 02/15/2014 VITAMIN B12 INJECTION CPT-4: J3420 02/15/2014 TRIAMCINOLONE ACET INJ NOS CPT-4: J3301 01/15/2014 VITAMIN B12 INJECTION CPT-4: J3420 01/15/2014 THER/PROPH/DIAG INJ SC/IM CPT-4: 81058 12/04/2013 VITAMIN B12 INJECTION CPT-4: J3420 12/04/2013 THER/PROPH/DIAG INJ SC/IM CPT-4: 65575 07/24/2013 VITAMIN B12 INJECTION CPT-4: J3420 07/24/2013 PRESCRIP TRANSMIT VIA ERX SY CPT-4: G8553 06/12/2013 VITAMIN B12 INJECTION CPT-4: J3420 05/10/2013 THER/PROPH/DIAG INJ SC/IM CPT-4: 87364 05/10/2013 TRIAMCINOLONE ACET INJ NOS CPT-4: J3301 03/06/2013 PRESCRIP TRANSMIT VIA ERX SY CPT-4: G8553 03/06/2013 ADMIN INFLUENZA VIRUS VAC CPT-4: G0008 02/20/2013 FLULAVAL VACC, 3 YRS & >, IM CPT-4: Q2036 02/20/2013 THER/PROPH/DIAG INJ SC/IM CPT-4: 83399 02/20/2013 VITAMIN B12 INJECTION CPT-4: J3420 02/20/2013 THER/PROPH/DIAG INJ SC/IM CPT-4: 42364 12/26/2012 TRIAMCINOLONE ACET INJ NOS CPT-4: J3301 12/26/2012 THER/PROPH/DIAG INJ SC/IM CPT-4: 87653 12/21/2012 VITAMIN B12 INJECTION CPT-4: J3420 12/21/2012 THER/PROPH/DIAG INJ SC/IM CPT-4: 58205 11/16/2012 VITAMIN B12 INJECTION CPT-4: J3420 11/16/2012 TB INTRADERMAL TEST (includes injection fee) CPT-4: 22429 09/26/2012 THER/PROPH/DIAG INJ SC/IM CPT-4: 49395 09/12/2012 VITAMIN B12 INJECTION CPT-4: J3420 09/12/2012 TRIAMCINOLONE ACET INJ NOS CPT-4: J3301 08/11/2012 VITAMIN B12 INJECTION CPT-4: J3420 08/11/2012 THER/PROPH/DIAG INJ SC/IM CPT-4: 58765 08/11/2012 VITAMIN B12 INJECTION CPT-4: J3420 07/13/2012 THER/PROPH/DIAG INJ SC/IM CPT-4: 49549 07/13/2012 THER/PROPH/DIAG INJ SC/IM CPT-4: 92492 05/26/2012 TRIAMCINOLONE ACET INJ NOS CPT-4: J3301 05/26/2012 VITAMIN B12 INJECTION CPT-4: J3420 05/26/2012 ADMIN INFLUENZA VIRUS VAC CPT-4: G0008 03/02/2012 FLULAVAL VACC, 3 YRS & >, IM CPT-4: Q2036 03/02/2012 PRESCRIP TRANSMIT VIA ERX SY CPT-4: G8553 02/15/2012 TRIAMCINOLONE ACET INJ NOS CPT-4: J3301 01/13/2012 VITAMIN B12 INJECTION CPT-4: J3420 12/21/2011 VITAMIN B12 INJECTION CPT-4: J3420 10/30/2011 THER/PROPH/DIAG INJ SC/IM CPT-4: 78195 10/30/2011 THER/PROPH/DIAG INJ SC/IM CPT-4: 51015 10/02/2011 VITAMIN B12 INJECTION CPT-4: J3420 10/02/2011 TRIAMCINOLONE ACET INJ NOS CPT-4: J3301 10/02/2011 PRESCRIP TRANSMIT VIA ERX SY CPT-4: G8553 10/02/2011 VITAMIN B12 INJECTION CPT-4: J3420 09/01/2011 URINALYSIS NONAUTO W/O SCOPE CPT-4: 02629 08/03/2011 VITAMIN B12 INJECTION CPT-4: J3420 08/03/2011 THER/PROPH/DIAG INJ SC/IM CPT-4: 86543 08/03/2011 THER/PROPH/DIAG INJ SC/IM CPT-4: 55501 06/11/2011 VITAMIN B12 INJECTION CPT-4: J3420 06/11/2011 ROUTINE VENIPUNCTURE CPT-4: 03413 06/11/2011 THER/PROPH/DIAG INJ SC/IM CPT-4: 74756 02/23/2011 VITAMIN B12 INJECTION CPT-4: J3420 02/23/2011 ADMIN INFLUENZA VIRUS VAC CPT-4: G0008 02/23/2011 FLULAVAL VACC, 3 YRS & >, IM CPT-4: Q2036 02/23/2011 Vital Signs Date Vital 04/05/2018 Blood Pressure 1: 144/80 Code : 8480-6 BMI: 30.9 Code : 60359-6 Heart Rate 1 : 118 bpm Height: 5'9" SpO2: 98% Weight: 209 lbs 03/10/2018 Blood Pressure 1: 128/82 Code : 8480-6 Blood Pressure 1: 162/74 Code: 8480-6 BMI: 30.3 Code: 37373-6 Heart Rate 1: 101 bpm Height: 5'9" SpO2: 98% Weight: 205 lbs 01/13/2018 Blood Pressure 1: 102/78 Code : 8480-6 BMI: 31.6 Code : 57687-5 Heart Rate 1 : 103 bpm Height: 5'9" SpO2: 98% Weight: 214 lbs 11/25/2017 Blood Pressure 1: 114/80 Code : 8480-6 BMI: 30.3 Code : 58909-3 Heart Rate 1 : 112 bpm Height: 5'9" SpO2: 98% Weight: 205 lbs 10/19/2017 Blood Pressure 1: 110/70 Code : 8480-6 BMI: 30.7 Code : 82495-0 Heart Rate 1 : 102 bpm Height: 5'9" SpO2: 97% Weight: 208 lbs 09/17/2017 Blood Pressure 1: 132/78 Code : 8480-6 BMI: 30.4 Code : 63850-0 Heart Rate 1 : 117 bpm Height: 5'9" SpO2: 97% Weight: 206 lbs 09/06/2017 Blood Pressure 1: 110/78 Code : 8480-6 BMI: 29.8 Code : 23352-3 Heart Rate 1 : 106 bpm Height: 5'9" SpO2: 97% Weight: 202 lbs 08/19/2017 Blood Pressure 1: 136/72 Code : 8480-6 BMI: 30.4 Code : 89479-9 Heart Rate 1 : 108 bpm Height: 5'9" SpO2: 94% Weight: 206 lbs 07/06/2017 Blood Pressure 1: 154/80 Code : 8480-6 Heart Rate 1: 111 bpm Height: 5'9" Respiratory Rate: 20 bpm SpO2: 98% Weight: 04/27/2017 Blood Pressure 1: 138/78 Code : 8480-6 BMI: 30.4 Code : 15869-9 Heart Rate 1 : 96 bpm Height: 5'9" SpO2: 97% Weight: 206 lbs 04/06/2017 Blood Pressure 1: 108/80 Code : 8480-6 BMI: 31.0 Code : 51590-5 Heart Rate 1 : 96 bpm Height: 5'9" SpO2: 98% Weight: 210 lbs 02/25/2017 Blood Pressure 1: 132/80 Code : 8480-6 BMI: 32.5 Code : 16330-6 Heart Rate 1 : 112 bpm Height: 5'9" SpO2: 94% Weight: 220 lbs 01/19/2017 Blood Pressure 1: 122/68 Code : 8480-6 Heart Rate 1: 100 bpm Height: 5'9" SpO2: 95% Weight: 11/17/2016 Blood Pressure 1: 132/74 Code : 8480-6 BMI: 32.2 Code : 67871-8 Heart Rate 1 : 98 bpm Height: 5'9" SpO2: 94% Weight: 218 lbs 10/12/2016 Blood Pressure 1: 130/82 Code : 8480-6 BMI: 32.2 Code : 13093-7 Heart Rate 1 : 97 bpm Height: 5'9" SpO2: 94% Weight: 218 lbs 08/18/2016 Blood Pressure 1: 132/78 Code : 8480-6 BMI: 32.0 Code : 42481-7 Heart Rate 1 : 113 bpm Height: 5'9" SpO2: 98% Weight: 217 lbs 08/07/2016 Blood Pressure 1: 126/70 Code : 8480-6 BMI: 33.1 Code : 52725-1 Heart Rate 1 : 102 bpm Height: 5'9" SpO2: 94% Weight: 224 lbs 07/31/2016 Blood Pressure 1: 134/66 Code : 8480-6 BMI: 31.7 Code : 19472-2 Heart Rate 1 : 97 bpm Height: 5'9" SpO2: 95% Temperature: 36.4 (C) / 97.6 (F) Weight: 215 lbs 07/15/2016 Blood Pressure 1: 126/62 Code : 8480-6 Heart Rate 1: 105 bpm Height: 5'9" Weight: 07/07/2016 Blood Pressure 1: 106/54 Code : 8480-6 BMI: 31.7 Code : 83356-5 Heart Rate 1 : 93 bpm Height: 5'9" SpO2: 97% Weight: 215 lbs 06/25/2016 Heart Rate 1: 99 bpm Height: 5'9" SpO2: 95% Weight: 05/07/2016 Blood Pressure 1: 124/86 Code : 8480-6 BMI: 28.5 Code : 69009-7 Heart Rate 1 : 100 bpm Height: 5'9" SpO2: 96% Weight: 193 lbs 04/20/2016 Blood Pressure 1: 120/80 Code : 8480-6 BMI: 28.5 Code : 42154-7 Heart Rate 1 : 86 bpm Height: 5'9" SpO2: 96% Weight: 193 lbs 03/17/2016 Blood Pressure 1: 120/70 Code : 8480-6 BMI: 29.1 Code : 98249-5 Heart Rate 1 : 103 bpm Height: 5'9" SpO2: 96% Weight: 197 lbs 03/05/2016 Blood Pressure 1: 124/78 Code : 8480-6 Heart Rate 1: 82 bpm Height: 5'9" SpO2: 94% Weight: 02/28/2016 Blood Pressure 1: 94/50 Code : 8480-6 Heart Rate 1: 91 bpm Height: 5'9" SpO2: 94% Weight: 02/13/2016 Blood Pressure 1: 128/86 Code : 8480-6 BMI: 28.6 Code : 84831-8 Heart Rate 1 : 100 bpm Height: 5'9" SpO2: 96% Weight: 194 lbs 08/15/2015 Blood Pressure 1: 128/68 Code : 8480-6 BMI: 27.3 Code : 68446-9 Heart Rate 1 : 72 bpm Height: 5'9" SpO2: 92% Weight: 185 lbs 07/25/2015 Blood Pressure 1: 122/76 Code : 8480-6 BMI: 27.5 Code : 77756-0 Heart Rate 1 : 70 bpm Height: 5'9" SpO2: 94% Weight: 186 lbs 06/25/2015 Blood Pressure 1: 118/54 Code : 8480-6 BMI: 26.7 Code : 84935-0 Heart Rate 1 : 98 bpm Height: 5'9" SpO2: 97% Weight: 181 lbs 06/10/2015 Blood Pressure 1: 110/68 Code : 8480-6 Heart Rate 1: 80 bpm Height: SpO2: 98% Weight: 05/08/2015 Blood Pressure 1: 120/68 Code : 8480-6 BMI: 27.5 Code : 06978-6 Heart Rate 1 : 95 bpm Height: 5'9" SpO2: 96% Weight: 186 lbs 03/26/2015 Blood Pressure 1: 120/80 Code : 8480-6 Heart Rate 1: 102 bpm Respiratory Rate: 18 bpm SpO2: 92% Weight: 186 lbs 03/15/2015 Blood Pressure 1: 122/64 Code : 8480-6 BMI: 26.6 Code : 45644-8 Heart Rate 1 : 96 bpm Height: 5'9" SpO2: 96% Weight: 180 lbs 01/10/2015 Blood Pressure 1: 120/68 Code : 8480-6 BMI: 27.5 Code : 96438-8 Heart Rate 1 : 90 bpm Height: 5'9" Weight: 186 lbs 12/21/2014 Blood Pressure 1: 118/78 Code : 8480-6 BMI: 27.2 Code : 09675-6 Heart Rate 1 : 61 bpm Height: 5'9" SpO2: 97% Weight: 184 lbs 10/05/2014 Blood Pressure 1: 118/64 Code : 8480-6 BMI: 27.0 Code : 37463-3 Heart Rate 1 : 76 bpm Height: 5'9" Weight: 183 lbs 06/14/2014 Blood Pressure 1: 120/78 Code : 8480-6 BMI: 26.6 Code : 30295-1 Heart Rate 1 : 96 bpm Height: 5'9" Weight: 180 lbs 01/19/2014 Blood Pressure 1: 128/76 Code : 8480-6 BMI: 27.3 Code : 75901-1 Heart Rate 1 : 82 bpm Height: 5'9" Weight: 185 lbs 01/15/2014 Blood Pressure 1: 110/62 Code : 8480-6 BMI: 27.9 Code : 66888-8 Heart Rate 1 : 80 bpm Height: 5'9" Weight: 189 lbs 10/20/2013 Blood Pressure 1: 112/62 Code : 8480-6 BMI: 30.1 Code : 74183-5 Heart Rate 1 : 76 bpm Height: [...] Code : 8480-6 BMI: 30.6 Code : 82466-0 Heart Rate 1 : 92 bpm Height: 5'9" Weight: 207 lbs 05/23/2013 Blood Pressure 1: 120/78 Code : 8480-6 Heart Rate 1: 84 bpm Weight: 05/19/2013 Blood Pressure 1: 126/78 Code : 8480-6 BMI: 30.3 Code : 38835-2 Heart Rate 1 : 88 bpm Height: 5'9" Weight: 205 lbs 05/16/2013 Blood Pressure 1: 126/66 Code : 8480-6 BMI: 30.3 Code : 07570-3 Heart Rate 1 : 84 bpm Height: 5'9" Weight: 205 lbs 03/06/2013 Blood Pressure 1: 128/76 Code : 8480-6 BMI: 30.6 Code : 53534-5 Heart Rate 1 : 88 bpm Height: 5'9" Weight: 207 lbs 12/26/2012 Blood Pressure 1: 142/70 Code : 8480-6 BMI: 29.6 Code : 00107-5 Heart Rate 1 : 100 bpm Height: 5'9" Weight: 200 lbs 8 oz 11/21/2012 Blood Pressure 1: 132/80 Code : 8480-6 BMI: 29.5 Code : 51081-6 Heart Rate 1 : 96 bpm Height: [...] Code : 8480-6 BMI: 29.2 Code : 04653-2 Heart Rate 1 : 64 bpm Height: 5'9" Respiratory Rate: 16 bpm Weight: 198 lbs 03/11/2011 Blood Pressure 1: 106/60 Code : 8480-6 BMI: 28.8 Code : 79461-8 Heart Rate 1 : 100 bpm Height: 5'9" SpO2: 97% Weight: 195 lbs 02/12/2011 Weight: 192 lbs 01/29/2011 Blood Pressure 1: 100/64 Code : 8480-6 BMI: 28.1 Code : 83873-8 Heart Rate 1 : 100 bpm Height: [...] Hospital Follow Up _ pain 05/16/2013 left [id number] to left knee-applying neosporin and covering with [...] 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 PATIENT, LEVEL IV Diagnosis: Essential (primary) hypertension[ICD10: I10] Diagnosis: Chronic pain syndrome[ICD10: G89.4] Diagnosis: Vitamin B12 deficiency anemia due to intrinsic factor deficiency[ ICD10: D51.0] Aicha Thompson MD, [facility] CPT-4: 77688 04/05/2018 ([id number]) 87640 EST. PATIENT, LEVEL IV Diagnosis: Essential (primary) hypertension[ICD10: I10] Diagnosis: Generalized anxiety disorder[ICD10: F41.1] Diagnosis: Major depressive disorder, recurrent, mild[ICD10: F33.0] Diagnosis: Vitamin B12 deficiency anemia due to intrinsic factor deficiency[ ICD10: D51.0] Valentina Thompson MD, [facility] CPT-4: 02553 03/10/2018 ([id number]) 88227 EST. PATIENT, LEVEL IV Diagnosis: Headache[ICD10: R51] Diagnosis: Obstructive sleep apnea (adult) (pediatric)[ICD10: G47.33] Diagnosis: Cervicalgia[ICD10: M54.2] Valentina Thompson MD, [facility] CPT-4: 15689 01/13/2018 ([id number]) 98996 EST. PATIENT, LEVEL IV Diagnosis: Headache[ICD10: R51] Diagnosis: Spinal stenosis, cervical region[ICD10: M48.02] Diagnosis: Major depressive disorder, recurrent, mild[ICD10: F33.0] Valentina Thompson MD , [facility] CPT-4: 08157 11/25/2017 ([id number]) 78443 EST. PATIENT, LEVEL III Diagnosis: Allergic contact dermatitis due to plants, except food[ICD10: L23.7] Diagnosis: Vitamin B12 deficiency anemia due to intrinsic factor deficiency[ ICD10: D51.0] Valentina Thompson MD, [facility] CPT-4: 69469 10/19/2017 ([id number]) 36551 EST. PATIENT, LEVEL IV Diagnosis: Generalized abdominal pain[ICD10: R10.84] Diagnosis: Urinary tract infection, site not specified[ICD10: N39.0] Diagnosis: Hypokalemia[ICD10: E87.6] Valentina Thompson MD, [facility] CPT-4: 73753 09/17/2017 ([id number]) 63547 EST. PATIENT, LEVEL IV Diagnosis: Chronic pain syndrome[ICD10: G89.4] Diagnosis: Pain in left knee[ICD10: M25.562] Diagnosis: Pain in right knee[ICD10: M25.561] Diagnosis: Essential (primary) hypertension[ICD10: I10] Aicha Thompson MD, [facility] CPT-4: 19909 09/06/2017 ([id number]) 35467 EST. PATIENT, LEVEL IV Diagnosis: Headache[ICD10: R51] Diagnosis: Chronic pain syndrome[ICD10: G89.4] Diagnosis: Mixed hyperlipidemia[ICD10: E78.2] Diagnosis: Vitamin D deficiency, unspecified[ICD10: E55.9] Diagnosis: Vitamin B12 deficiency anemia, unspecified[ICD10: D51.9] Valentina Thompson MD , [facility] CPT-4: 22672 08/19/2017 50293 EST. PATIENT, LEVEL V Diagnosis: Essential (primary) hypertension[ICD10: I10] Diagnosis: Vitamin B12 deficiency anemia due to intrinsic factor deficiency[ ICD10: D51.0] Diagnosis: Chronic pain syndrome[ICD10: G89.4] Aicha Thompson MD, [facility] CPT-4: 38764 07/06/2017 ([id number]) 80198 EST. PATIENT, LEVEL IV Diagnosis: Cervicalgia[ICD10: M54.2] Diagnosis: Laceration without foreign body of scalp, initial encounter[ICD10: S01.01XA] Diagnosis: Vitamin B12 deficiency anemia due to intrinsic factor deficiency[ ICD10: D51.0] Valentina Thompson MD, [facility] CPT-4: 33499 04/27/2017 79241 EST. PATIENT, LEVEL II Diagnosis: Residual hemorrhoidal skin tags[ICD10: K64.4] Valentina Thompson MD, [facility] CPT-4: 31950 04/06/2017 ([id number]) 34903 EST. PATIENT, LEVEL III Diagnosis: Pain in right foot[ICD10: M79.671] Diagnosis: Pain in left foot[ICD10: M79.672] Diagnosis: Cervicalgia[ICD10: M54.2] Valentina Thompson MD, [facility] CPT-4: 09430 02/25/2017 ([id number]) 39179 EST. PATIENT, LEVEL IV Diagnosis: Essential (primary) hypertension[ICD10: I10] Diagnosis: Chronic pain syndrome[ICD10: G89.4] Diagnosis: Spinal stenosis, cervical region[ICD10: M48.02] Diagnosis: Pain in right leg[ICD10: M79.604] Valentina Thompson MD, [facility] CPT-4: 33421 01/19/2017 ([id number]) 40926 EST. PATIENT, LEVEL III Diagnosis: Pain in right foot[ICD10: M79.671] Diagnosis: Pain in left foot[ICD10: M79.672] Diagnosis: Chronic pain syndrome[ICD10: G89.4] Diagnosis: Vitamin B12 deficiency anemia, unspecified[ICD10: D51.9] Valentina Thompson MD [facility] CPT-4: 95199 11/17/2016 ([id number]) 41100 EST. PATIENT, LEVEL IV Diagnosis: Essential (primary) hypertension[ICD10: I10] Diagnosis: Chronic pain syndrome[ICD10: G89.4] Diagnosis: Foot drop, right foot[ICD10: M21.371] Diagnosis: Foot drop, left foot[ICD10: M21.372] Diagnosis: Other abnormalities of gait and mobility[ICD10: R26.89] Diagnosis: Vitamin B12 deficiency anemia due to intrinsic factor deficiency[ ICD10: D51.0] Aicha Thompson MD, [facility] CPT-4: 46318 10/12/2016 ([id number]) 84537 EST. PATIENT, LEVEL III Diagnosis: Pain in right ankle and joints of right foot[ICD10: M25.571] Diagnosis: Superficial foreign body, right foot, initial encounter[ICD10: S90.851A] Valentina Thompson MD, [facility] CPT-4: 00913 ([id number]) 21919 EST. PATIENT, LEVEL III Diagnosis: Candidiasis of vulva and vagina[ICD10: B37.3] Diagnosis: Vitamin B12 deficiency anemia, unspecified[ICD10: D51.9] Valentina Thompson MD , [facility] CPT-4: 62035 08/07/2016 ([id number]) 08819 EST. PATIENT, LEVEL III Diagnosis: Spinal stenosis, cervical region[ICD10: M48.02] Diagnosis: Pain in right ankle and joints of right foot[ICD10: M25.571] Diagnosis: Pain in left ankle and joints of left foot[ICD10: M25.572] Valentina Thompson MD [facility] CPT-4: 97584 07/31/2016 88955 EST. PATIENT, LEVEL III Diagnosis: Cervicalgia[ICD10: M54.2] Diagnosis: Chronic pain syndrome[ICD10: G89.4] Beatriz Thompson MD, [facility] CPT-4: 92268 07/15/2016 ([id number]) 05291 EST. PATIENT, LEVEL III Diagnosis: Spinal stenosis, cervical region[ICD10: M48.02] Diagnosis: Low back pain[ICD10: M54.5] Valentina Thompson MD, [facility] CPT-4: 72075 07/07/2016 ([id number]) 30330 EST. PATIENT, LEVEL IV Diagnosis: Cervicalgia[ICD10: M54.2] Diagnosis: Essential (primary) hypertension[ICD10: I10] Diagnosis: Mixed hyperlipidemia[ICD10: E78.2] Aicha Thompson MD, [facility] CPT-4: 01367 06/25/2016 ([id number]) 24411 EST. PATIENT, LEVEL III Diagnosis: Cervicalgia[ICD10: M54.2] Valentina Thompson MD, [facility] CPT-4: 94662 05/07/2016 ([id number]) 81749 EST. PATIENT, LEVEL III Diagnosis: Pleurodynia[ICD10: R07.81] Diagnosis: Generalized anxiety disorder[ICD10: F41.1] Diagnosis: Vitamin B12 deficiency anemia due to intrinsic factor deficiency[ ICD10: D51.0] Diagnosis: Hypoxemia[ICD10: R09.02] Valentina Thompson MD, [facility] CPT-4: 92985 04/20/2016 ([id number]) 04902 EST. PATIENT, LEVEL III Diagnosis: Generalized anxiety disorder[ICD10: F41.1] Diagnosis: Radiculopathy, lumbar region[ICD10: M54.16] Valentina Thompson MD, [facility] CPT-4: 87126 03/17/2016 20183 EST. PATIENT, LEVEL IV Diagnosis: Chronic pain syndrome[ICD10: G89.4] Diagnosis: Radiculopathy, lumbar region[ICD10: M54.16] Diagnosis: Generalized anxiety disorder[ICD10: F41.1] Beatriz Thompson MD, [facility] CPT-4: 42841 03/05/2016 ([id number]) 63385 EST. PATIENT, LEVEL III Diagnosis: Radiculopathy, lumbar region[ICD10: M54.16] Diagnosis: Generalized anxiety disorder[ICD10: F41.1] Valentina Thompson MD, [facility] CPT-4: 31650 02/28/2016 ([id number]) 56616 EST. 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 PATIENT, LEVEL III Diagnosis: Headache[ICD10: R51] Diagnosis: Cervicalgia[ICD10: M54.2] Valentina Thompson MD, [facility] CPT-4: 64678 08/15/2015 ([id number]) 38704 EST. PATIENT, LEVEL III Diagnosis: Generalized anxiety disorder[ICD10: F41.1] Diagnosis: Cervicalgia[ICD10: M54.2] Valentina Thompson MD, [facility] CPT-4: 99480 07/25/2015 ([id number]) 81600 EST. PATIENT, LEVEL IV Diagnosis: Pain in right foot[ICD10: M79.671] Diagnosis: Unspecified osteoarthritis, unspecified site[ICD10: M19.90] Diagnosis: Pain in left ankle and joints of left foot[ICD10: M25.572] Diagnosis: Pain in right ankle and joints of right foot[ICD10: M25.571] Valentina Thompson MD, [facility] CPT-4: 96793 06/25/2015 ([id number]) 36214 EST. 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 PATIENT, LEVEL IV Diagnosis: Essential (primary) hypertension[ICD10: I10] Diagnosis: Pain in right foot[ICD10: M79.671] Diagnosis: Pain in left foot[ICD10: M79.672] Diagnosis: Anxiety disorder, unspecified[ICD10: F41.9] Aicha Thompson MD, [facility] CPT-4: 39830 05/08/2015 ([id number]) 81955 EST. PATIENT, LEVEL III Diagnosis: Generalized anxiety disorder[ICD10: F41.1] Diagnosis: Essential (primary) hypertension[ICD10: I10] Diagnosis: Other myositis, multiple sites[ICD10: M60.89] Valentina Thompson MD, [facility] CPT-4: 58733 03/26/2015 40824 EST. PATIENT, LEVEL III Diagnosis: Chronic pain syndrome[ICD10: G89.4] Diagnosis: Unspecified osteoarthritis, unspecified site[ICD10: M19.90] Diagnosis: Pain in right foot[ICD10: M79.671] Diagnosis: Pain in left foot[ICD10: M79.672] Beatriz Thompson MD, [facility] CPT -4: 70958 03/15/2015 ([id number]) 39318 EST. PATIENT, LEVEL III Diagnosis: Abrasion of knee, left[ICD9: 916.0] Valentina Thompson MD, [facility] CPT-4: 97320 01/10/2015 ([id number]) 12090 EST. PATIENT, LEVEL IV Diagnosis: CHRONIC PAIN SYNDROME[ICD9: 338.4] Diagnosis: MYALGIA AND MYOSITIS[ICD9: 729.1] Diagnosis: OSTEOARTH NOS-UNSPEC[ICD9: 715.90] Diagnosis: DEPRESSIVE DISORDER NEC[ICD9: 311] Diagnosis: GENERALIZED ANXIETY DISEASE[ICD9: 300.02] Valentina Thompson MD, [facility] CPT-4: 53402 12/21/2014 ([id number]) 89347 EST. PATIENT, LEVEL IV Diagnosis: GENERALIZED ANXIETY DISEASE[ICD9: 300.02] Diagnosis: DEPRESSIVE DISORDER NEC[ICD9: 311] Diagnosis: ESSENTIAL HYPERTENSION[ICD9: 401.9] Valentina Thompson MD, [facility] CPT-4: 13948 10/05/2014 ([id number]) 06958 EST. PATIENT, LEVEL III Diagnosis: Knee pain, right[ICD9: 719.46] Diagnosis: CHRONIC PAIN SYNDROME[ICD9: 338.4] Diagnosis: Ankle pain[ICD9: 719.47] Aicha Thompson MD, [facility] CPT-4: 38137 06/14/2014 ([id number]) 77902 EST. PATIENT, LEVEL III Diagnosis: Constipation[ICD9: 564.00] Diagnosis: Hemorrhoids[ICD9: 455.6] Valentina Thompson MD, [facility] CPT-4: 46996 01/19/2014 ([id number]) 67955 EST. PATIENT, LEVEL III Diagnosis: Ulcer of knee[ICD9: 707.19] Diagnosis: Hemorrhoids[ICD9: 455.6] Diagnosis: B12 deficiency[ICD9: 266.2] Diagnosis: ALLERGIC RHINITIS[ICD9: 477.9] Valentina Thompson MD, [facility] CPT-4: 24544 01/15/2014 ([id number]) 10854 EST. PATIENT, LEVEL IV Diagnosis: EDEMA[ICD9: 782.3] Diagnosis: Open wound of knee[ICD9: 891.0] Diagnosis: CHRONIC PAIN SYNDROME[ICD9: 338.4] Diagnosis: ANEMIA[ICD9: 285.9] Valentina Thompson MD, [facility] CPT-4: 45199 10/20/2013 ([id number]) 57276 EST. PATIENT, LEVEL III Diagnosis: ULCER OTH PART LOW LIMB[ICD9: 707.19] Valentina Thompson MD, [facility] CPT-4: 46941 07/24/2013 ([id number]) 80747 EST. PATIENT, LEVEL III Diagnosis: ULCER OTH PART LOW LIMB[ICD9: 707.19] Valentina Thompson MD, [facility] CPT-4: 45244 06/23/2013 ([id number]) 21142 EST. PATIENT, LEVEL III Diagnosis: ULCER OTH PART LOW LIMB[ICD9: 707.19] Valentina Thompson MD, [facility] CPT-4: 74865 06/12/2013 ([id number]) Miscellaneous no charge Diagnosis: ULCER OTH PART LOW LIMB[ICD9: 707.19] Valentina Thompson MD [facility] CPT-4: 72458 05/29/2013 ([id number]) 74382 EST. PATIENT, LEVEL III Diagnosis: ULCER OTH PART LOW LIMB[ICD9: 707.19] Valentina Thompson MD, [facility] CPT-4: 89164 05/23/2013 ([id number]) Miscellaneous no charge Diagnosis: ULCER OTH PART LOW LIMB[ICD9: 707.19] Valentina Thompson MD [facility] CPT-4: 78777 05/19/2013 ([id number]) 44645 EST. PATIENT, LEVEL III Diagnosis: Ulcer of knee[ICD9: 707.19] Valentina Thompson MD, [facility] CPT-4: 81124 05/16/2013 ([id number]) 71773 EST. PATIENT, LEVEL III Diagnosis: ALLERGIC RHINITIS[ICD9: 477.9] Aicha Thompson MD [facility] CPT- 4: 89787 03/06/2013 ([id number]) 62932 EST. PATIENT, LEVEL IV Diagnosis: Ankle pain[ICD9: 719.47] Diagnosis: ALLERGIC RHINITIS[ICD9: 477.9] Diagnosis: ESSENTIAL HYPERTENSION[SNOMED: 01706934] Aicha Thompson MD, [facility] CPT-4: 16047 12/26/2012 ([id number]) 53193 EST. PATIENT, LEVEL IV Diagnosis: ESSENTIAL HYPERTENSION[SNOMED: 87788980] Diagnosis: JOINT PAIN-L/LEG[ICD9: 719.46] Diagnosis: GENERALIZED ANXIETY DISEASE[ICD9: 300.02] Diagnosis: UNSPECIFIED ASTHMA[ICD9: 493.90] Aicha Thompson MD, [facility] CPT-4: 66284 11/21/2012 ([id number]) Miscellaneous no charge Diagnosis: Encounter for tuberculin skin test[ICD9: V74.1] Aicha Thompson MD, [facility] CPT-4: 91191 09/28/2012 ([id number]) 73235 EST. PATIENT, LEVEL IV Diagnosis: FEVER NOS[ICD9: 780.60] Diagnosis: PNEUMONIA (CAP)[ICD9: 486] Aicha Thompson MD, [facility] CPT- 4: 61845 07/21/2012 ([id number]) 56189 EST. PATIENT, LEVEL IV Diagnosis: JOINT PAIN-ANKLE[ICD9: 719.47] Diagnosis: MUSCLE/LIGAMENT DIS NEC[ICD9: 728.89] Diagnosis: Fibromyalgia muscle pain[ICD9: 729.1] Aicha Thompson MD, [facility] CPT-4: 23326 07/13/2012 ([id number]) 03760 EST. PATIENT, LEVEL IV Diagnosis: Right foot pain[ICD9: 729.5] Diagnosis: Plantar fasciitis[ICD9: 728.71] Diagnosis: GENERALIZED ANXIETY DISEASE[ICD9: 300.02] Diagnosis: B-COMPLEX DEFIC NEC[ICD9: 266.2] Aicha Thompson MD, [facility] CPT-4: 44170 05/26/2012 ([id number]) 84670 EST. PATIENT, LEVEL IV Diagnosis: Chest wall pain[ICD9: 786.52] Diagnosis: Esophageal reflux[ICD9: 530.81] Diagnosis: ALLERGIC RHINITIS[ICD9: 477.9] Valentina Thompson MD, [facility] CPT-4: 17255 02/15/2012 ([id number]) 25019 EST. PATIENT, LEVEL IV Diagnosis: ALLERGIC RHINITIS[ICD9: 477.9] Diagnosis: HYPERLIPIDEMIA[ICD9: 272.4] Aicha Thompson MD, [facility] CPT- 4: 60322 01/13/2012 ([id number]) 02266 EST. PATIENT, LEVEL IV Diagnosis: JOINT PAIN-L/LEG[ICD9: 719.46] Diagnosis: UNSPECIFIED ASTHMA[ICD9: 493.90] Diagnosis: Costalchondritis[ICD9: 733.6] [facility] CPT- 4: 04514 12/21/2011 ([id number]) 77170 EST. PATIENT, LEVEL IV Diagnosis: Hyperlipidemia[ICD9: 272.4] Diagnosis: ALLERGIC RHINITIS[ICD9: 477.9] Diagnosis: B12 deficiency[ICD9: 266.2] Diagnosis: Hypopotassemia[ICD9: 276.8] Valentina Thompson MD, [facility] CPT-4: 43289 10/02/2011 ([id number]) 25982 EST. PATIENT, LEVEL IV Diagnosis: Pain in joint involving forearm[ICD9: 719.43] Diagnosis: Neck pain[ICD9: 723.1] Diagnosis: Fall on same level from slipping, tripping, or stumbling[ICD9: E885.9 ] Diagnosis: B12 deficiency[ICD9: 266.2] Aicha Thompson MD, [facility] CPT- 4: 40565 09/01/2011 ([id number]) 55232 EST. PATIENT, LEVEL IV Diagnosis: Vulvovaginitis[ICD9: 616.10] Diagnosis: OVERWEIGHT[ICD9: 278.02] Diagnosis: MYALGIA AND MYOSITIS[ICD9: 729.1] Aicha Thompson MD, [facility] CPT-4: 36153 08/03/2011 ([id number]) 67930 EST. PATIENT, LEVEL IV Diagnosis: MUSCLE/LIGAMENT DIS NEC[ICD9: 728.89] Diagnosis: CHRONIC PAIN SYNDROME[ICD9: 338.4] Diagnosis: Weight gain[ICD9: 783.1] Aicha Thompson MD, [facility] CPT-4: 16723 06/29/2011 99570 EST. PATIENT, LEVEL IV Diagnosis: Wrist pain[ICD9: 719.43] Diagnosis: Knee pain, right[ICD9: 719.46] Diagnosis: Fall on same level from slipping, tripping, or stumbling[ICD9: E885.9 ] Aicha Thompson MD, [facility] CPT-4: 33593 06/22/2011 31507 EST. PATIENT, LEVEL IV Diagnosis: MUSCLE/LIGAMENT DIS NEC[ICD9: 728.89] Diagnosis: JOINT PAIN-L/LEG[ICD9: 719.46] Diagnosis: OSTEOARTH NOS-UNSPEC[ICD9: 715.90] Diagnosis: B12 deficiency[ICD9: 266.2] Aicha Thompson MD, [facility] CPT- 4: 60606 06/11/2011 39238 EST. 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 PATIENT, LEVEL IV Diagnosis: Knee pain, bilateral[ICD9: 719.46] Diagnosis: Iliotibial band syndrome[ICD9: 728.89] Diagnosis: Fibromyalgia syndrome[ICD9: 729.1] Aicha Thompson MD, [facility] CPT-4: 05317 02/12/2011 95802 EST. PATIENT, LEVEL IV Diagnosis: FALL FROM SLIPPING[ICD9: E885.9] Diagnosis: Pain in joint involving lower leg[ICD9: 719.46] Diagnosis: ESOPHAGEAL REFLUX[ICD9: 530.81] Diagnosis: ESSENTIAL HYPERTENSION[SNOMED: 24742569] Aicha Thompson MD, [facility] CPT-4: 40087 01/29/2011 Plan of Care Planned Activity Notes Codes Status Date Appointment: Valentina Smith WPtel: [address] [place], [place] [phone] (15 min) Moderate 04/18/2018 Visit Plan: Hypertension [...] falling episodes. 04/05/2018 Appointment: Aicha Thompson WPtel: [phone] [facility] (30 min) Complex 04/05/2018 Patient Education: Patient Medication Summary Completed 04/05/2018 Appointment: Aicha Thompson WPtel: [address] [facility] [place] (15 min) Moderate 03/17/2018 Visit [...] 2 weeks 03/10/2018 Appointment: Valentina Smith WPtel: [address] [phone] [place] (15 min) Moderate 03/10/2018 Appointment: Svetlana Thompsony WPtel: [phone] [facility] (15 min) Moderate 03/10/2018 Patient Education: Patient Medication Summary Completed 03/10/2018 Patient Education: Depression Completed 03/10/2018 Visit Plan: Headaches-patient is not wearing her CPAP and i suspect this may be contributing to her headaches-will contact [facility] for a new sleep study Neck pain -spinal stenosis - has attempted to contact patient with no response from Mary-I have instructed her to call them and get appt scheduled 01/13/2018 Appointment: Valentina Smith WPtel: [address] [phone] (15 min) Moderate 01/13/2018 [...] current medications. 11/25/2017 Appointment: Valentina Smith WPtel: [phone] (30 min) Complex 11/25/2017 Patient Education: Patient Medication Summary Completed 11/25/2017 Visit Plan: Contact dermatitis-discussed natural and expected course of this diagnosis and to alert me if symptoms do not resolve or if any worse. RX sent to patient's pharmacy and instructed on use. 10/19/2017 Appointment: Valentina Smith WPtel: [phone] [phone] (15 min) Moderate 10/19/2017 Patient Education: Patient Medication Summary Completed 10/19/2017 Appointment: Valentina Smith WPtel: [phone] [phone] [place] (30 min) Complex 09/27/2017 Visit Plan: Generalized abd jmxs-IRB-hdhxof cipro/flagyl- culture urine-recommend patient follow up with Dr Grace for an appt if abdominal pain does not improve Low potassium-check labs 09/17/2017 Visit Plan: Generalized abd ptyg-DCH-pglyxh cipro/flagyl- culture urine-recommend patient follow up with Dr Grace for an appt if abdominal pain does not improve Low potassium-check labs 09/17/2017 Appointment: Valentina Smith WPtel[phone] [place] (30 min) Complex 09/17/2017 Patient [...] of over-medication. 09/06/2017 Appointment: Aicha Thompson WPtel: [address] [place], [place] [address] (30 min) Complex 09/06/2017 Patient Education: Patient Medication Summary Completed 09/06/2017 Appointment: Aicha Thompson WPtel: [address] [place], [place] [address] (30 min) Complex 09/02/2017 Appointment: Aicha Thompson WPtel: [address] [place], [place] [phone] [place] (30 min) Complex 08/23/2017 Visit Plan: Headaches-neck pain-patient is to let us know which neurologist she wants to see B12 def-injection today in the office Hyperlipidemia-check labs Vitamin D def-check level 08/19/2017 Appointment: Valentina Smith WPtel: [address] [place], [place] [phone] [place] (30 min) Complex 08/19/2017 Patient Education: [...] the list of the neurologists that her licensing services clerk has recommended and we would consider a [...] the list of the neurologists that her licensing services clerk has recommended and we would consider a [...] the psychiatrist. 07/06/2017 Appointment: Aicha Thompson WPtel: [facility]5 [facility] (30 min) Complex 07/06/2017 Patient Education: Patient Medication Summary Completed 07/06/2017 [facility]: [facility] ([facility] min) Complex 07/05/2017 Appointment: [facility]Ptel[phone] [place] (30 min) Complex 05/17/2017 Appointment: Beatriz Mojica [facility]Ptel: [facility] (30 min) Complex 05/14/2017 Visit Plan: Neck msmn-kiwtycu-iyndhxs to continue f/u with [facility]-her symptoms have [...] of plan. 04/27/2017 Appointment: Valentina Smith WPtel: [address] [place], [place] [phone] (30 min) Complex 04/27/2017 Patient Education: Patient Medication Summary Completed 04/27/2017 Patient Education: Obesity Completed 04/27/2017 Visit Plan: Hemorrhoidal skin tag-no acute inflammation today -may use hemorrhoid cream as directed as needed-call with any concerns, bleeding, etc. 04/06/2017 Appointment: Valentina Smith WPtel: [facility]6 [phone] (30 min) Complex 04/06/2017 Patient Education: Patient Medication Summary Completed 04/06/2017 Patient Education: Obesity Completed 04/06/2017 Visit Plan: Bilateral foot and ankle pain-now has AFOs-we have made her several appt with podiatrists which she has not kept-recommend patient call Dr Saunders and reschedule appt with him. Neck pain-[facility] appt next week-KEEP APPOINTMENT! 02/25/2017 Appointment: Valentina Smith WPtel: [facility]9 [phone] (30 min) Complex 02/25/2017 [...] podiatry for evaluation-wants to see someone in [place] 11/17/2016 Appointment: Valentina Smith WPtel: [address] [place], [place] [phone] (30 min) Complex 11/17/2016 Patient Education: Patient Medication Summary Completed 11/17/2016 Appointment: Valentina Smith WPtel: [facility]5 [phone] (30 min) Complex 11/16/2016 Visit Plan: [place] referral - pt to indicate when and who she would like to go to - for neck and back AFO for both legs - [facility] in [place], [place]- fax #[phone] pt has been seen by technical support specialist - need brace because of bilateral [...] over- medication. 10/12/2016 Appointment: Aicha Thompson WPtel: [facility]5 [facility] (30 min) Complex 10/12/2016 Patient Education: Patient Medication Summary Completed 10/12/2016 Patient Education: Obesity Completed 10/12/2016 Appointment: Injection 09/11/2016 Patient Education: Patient Medication Summary Completed 09/11/2016 Visit Plan: Right ankle pain/instability-xray negative- will obtain MRI ankle Ulcer right foot-instructed patient on wound care and the importance of keeping wound clean-f/u in 10-14 days for re-evaluation 08/18/2016 Appointment: Valentina Smith WPtel: [phone] [phone] [place] (30 min) Complex 08/18/2016 Patient Education: Patient Medication Summary Completed 08/18/2016 Patient Education: Obesity Completed 08/18/2016 Care Plan: X-RAY EXAM NECK SPINE 2-3 VW LOINC : 96948-4 Pending 08/15/2016 Visit Plan: Vaginal yeast infection-RX for diflucan B12 deficiency-check labs 08/07/2016 Appointment: Valentina Smith WPtel: [phone] [phone] [place] (30 min) Complex 08/07/2016 Patient Education: Patient Medication Summary Completed 08/07/2016 Visit Plan: Cervical stenosis-saw Dr Ramey-Dr Ramey is going to send her to for further evaluation Bilateral ankle pain-xray ankles 07/31/2016 Appointment: Valentina Smith WPtel: [facility]9 [phone] [place] (30 min) Complex 07/31/2016 Patient Education: Patient Medication Summary Completed 07/31/2016 Patient Education: Obesity Completed 07/31/2016 Visit Plan: Neck pain after fall - Will check x-ray, Pt is to follow up with Dr. Perez. Pt is to notify clinic if symptoms do not improve , if they worsen, or with any questions or concerns. 07/15/2016 Appointment: Beatriz Mojica WPtel: 1012 [facility] [place] (30 min) Complex [...] Injection 07/03/2016 Appointment: Valent[facility]Ptel: [phone] (30 min) Complex 07/03/2016 Patient Education: [...] PT. 05/07/2016 Appointment: Valentina Smith [facility]Ptel: [phone] (30 min) Complex 05/07/2016 Patient Education: Patient Medication Summary Completed 05/07/2016 Patient Education: Obesity Completed 05/07/2016 Care Plan: MRI NECK SPINE W/O DYE [facility] : 47474-3 Pending 05/07/2016 Visit Plan: Chronic Depression and [...] monitor symptoms 04/20/2016 Appointment: Valentina Smith WPtel: [phone] (30 min) Complex 04/20/2016 Patient Education: Patient Medication Summary Completed 04/20/2016 Appointment: Valentina Smith WPtel: [address] [place], [place] [phone] (30 min) Complex 03/19/2016 Visit Plan: Chronic [...] Dr Ibarra 03/17/2016 Appointment: Valentina Smith WPtel: [address] [place] [phone] (30 min) Complex 03/17/2016 Patient Education: Patient [...] current medications. 02/28/2016 Appointment: Valentina Smith WPtel: [address] [place] [address] (15 min) Moderate 02/28/2016 Patient Education: Patient Medication Summary Completed 02/28/2016 Appointment: Valentina Smith WPtel: [address] [place] [address] (30 min) Complex 02/27/2016 Visit Plan: Hypertension [...] d level 02/13/2016 Appointment: Valentina Smith WPtel: [facility] [address] (30 min) Complex 02/13/2016 Patient Education: Patient Medication Summary Completed 02/13/2016 Patient Education: Obesity Completed 02/13/2016 Care Plan: Cbc With Differential Pending 02/13/2016 Care Plan: Tsh Pending 02/13/2016 Care Plan: Lipid Pending 02/13/2016 Care Plan: Comp Metabolic patient to come fasting Pending 02/13/2016 Care Plan: Vitamin D 25 Oh Cancelled 02/13/2016 Patient Education: Patient Medication Summary Completed 02/03/2016 Care Plan: [facility] 28614[facility]9 Pending 02/03/2016 Appointment: Injection 01/15/2016 Appointment: Lab [...] Plan: X-RAY EXAM NECK SPINE 2-3 VW [facility] : 49073-3 Ordered 08/15/2015 Visit Plan: Anxiety-fairly well controlled-does [...] feet and ankle instability/pain. Refer patient to [facility] for aqua therapy. Patient verbalized [...] side effects. 05/08/2015 Appointment: Aicha Thompson WPtel: [address] [place] [address] (30 min) Complex 05/08/2015 Patient Education: Patient [...] daily, follow up after appointment with Dr. Sidel Chronic Pain Syndrome - pt has chronic [...] Care Plan: COMPLETE CBC AUTOMATED LOINC : 56084-0 Ordered 10/05/2014 Visit Plan: Chronic Pain Syndrome - pt has chronic pain - has been maintained on current medications, has not sought out other medications , only uses PRN pain medications as directed, and understands the consequences of over-medication. Right hip/knee/ankle pain-improving since last fall- continue physical therapy exercises-continue supportive shoes and use walker for stability 06/14/2014 Appointment: Valentina Smith WPtel: [facility]5 [phone] [place] Follow up 06/14/2014 Patient Education: [...] the instructions given to her from her director of teaching and learning and she is to call him if her constipation is uncontrolled. Hemorrhoids-use suppositories as directed. 01/19/2014 Patient Education: Patient Medication Summary Completed 01/19/2014 Visit Plan: Ulcer of ysdp-ricrgsr-icptq instructions provided today and instructed patient to return as directed-keep wound clean and dry. Hemorrhoids-refill anusol suppositories and use as directed B12 deficiency-b12 injection today in the office Nqbltewrp-xvmcchszulpe-eprvatw injection today in the office-continue oral medications [...] Anemia-check labs 10/20/2013 Appointment: Valentina Smith WPtel: [facility]5 [phone] [place] Other 10/20/2013 Patient Education: Patient Medication Summary Completed 10/20/2013 Appointment: Valentina Smith WPtel: [facility]5 [phone] [place] Injection 08/21/2013 Appointment: Aicha Thompson WPtel: [facility]5 [facility] [place] Follow up 07/31/2013 Visit Plan: Ulcer of knee healing-silver nitrate to granulation tissue-instructed patient to monitor and call if it does not completely heal for appointment-instructed on wound care-patient and mother verbalized understanding of plan. 07/24/2013 Patient Education: Patient Medication Summary Completed 07/24/2013 Patient Education: Patient Medication Summary Completed 07/24/2013 Appointment: Valentina Smith WPtel: [address] [place], [place] [phone] Follow up 07/03/2013 Visit Plan: Ulcer-left knee-fibrous tissue removed from wound bed to reveal pink granulation tissue-wound cleansed and dressing applied. Instructed patient on wound care. Return in 10 days for follow up. 06/23/2013 Appointment: Valentina Smith WPtel: [address] [place], [place] [phone] Follow up 06/23/2013 Patient Education: Patient Medication Summary Completed 06/23/2013 Appointment: Aicha Thompson WPtel: [address] [place], [place] [phone] Follow up 06/22/2013 Appointment: Valentina Smith WPtel: [address] [place], [place] [phone] Follow up 06/22/2013 Visit Plan: Ulcer-left knee-fibrous tissue removed from wound bed to reveal pink granulation tissue-wound cleansed and dressing applied. Instructed patient on wound care. Return in 10 days for follow up. 06/12/2013 Appointment: Valentina Smith WPtel: [address] [place], [place] [phone] Follow up 06/12/2013 Patient Education: Patient Medication Summary Completed 06/12/2013 Appointment: Aicha Thompson WPtel: [address] [place], [place] [phone] [place] Follow up 06/08/2013 Visit Plan: Ulcer left svnk-gaawxrzg-p/u in 10 days 05/29/2013 Appointment: Valentina Smith WPtel: [address] [place], [place] [phone] Follow up 05/29/2013 Patient Education: Patient Medication Summary Completed 05/29/2013 Visit Plan: Ulcer of knee-sharp debridement today in the office--wound care instructions provided for patient-patient and mother verbalized understanding of plan. Follow up next week. 05/23/2013 Appointment: Valentina Smith WPtel: [address] [place], [place] [phone] [place] [address] Follow up 05/23/2013 Patient Education: Patient Medication Summary Completed 05/23/2013 Appointment: Valentina Smith WPtel: [address] [place] [address] Follow up 05/22/2013 Visit Plan: Ulcer of knee-wound care instructions provided for patient-patient and mother verbalized understanding of plan. 05/19/2013 Appointment: Valentina Smith WPtel: [address] [place] [address] 05/19/2013 Patient Education: Patient Medication Summary Completed 05/19/2013 Visit Plan: Ulcer of knee-fibrous tissue debrided today in the office--wound care instructions provided for patient-return in 1 week for follow up. 05/16/2013 Appointment: Valentina Smith WPtel: [address] [place] [address] follow up 05/16/2013 Patient Education: Patient Medication Summary Completed 05/16/2013 Appointment: Aicha Thompson WPtel: [address] [place], [place] [phone] Injection 05/10/2013 Patient Education: Patient Medication Summary [...] the office. 03/06/2013 Appointment: Valentina Smith WPtel: [address] [place] [phone] Other 03/06/2013 Patient Education: Patient Medication Summary Completed 03/06/2013 Appointment: Aicha Thompson WPtel: [facility]5 [facility] Nurse Visit 02/20/2013 Patient Education: Patient Medication Summary Completed 02/20/2013 Appointment: Aicha Thompson WPtel: [facility]5 [facility] Follow up 01/16/2013 Visit [...] acute concerns. 12/26/2012 Appointment: Aicha Thompson WPtel: [phone] [facility] [place] Other 12/26/2012 Patient Education: Patient Medication Summary Completed 12/26/2012 Patient Education: Hypertension Completed 12/26/2012 Appointment: [facility] [place] Lab Draw 12/21/2012 Patient Education: [...] acute changes 11/21/2012 Appointment: Aicha Thompson WPtel: [address] [place] [address] [place] Follow up 11/21/2012 Patient Education: Patient Medication Summary Completed 11/21/2012 Patient Education: Hypertension Completed 11/21/2012 Appointment: Aicha Thompson WPtel: [address] [place] [address] [place] Injection 11/16/2012 Patient Education: Patient Medication Summary Completed 11/16/2012 Appointment: Aicha Thompson WPtel: [facility] [place] Injection 09/28/2012 Patient Education: Patient Medication Summary Completed 09/28/2012 Appointment: Aicha Thompson WPtel: [facility] [place] Injection 09/26/2012 Patient Education: Patient Medication Summary Completed 09/26/2012 Appointment: Aicha Thompson WPtel: [address] [place] [address] [place] Injection 09/12/2012 Patient Education: Patient Medication Summary Completed 09/12/2012 Appointment: Aicha Thompson WPtel: [address] [place] [address] [place] Injection 08/11/2012 Patient Education: Patient Medication [...] management sparingly. 07/13/2012 Appointment: Aicha Thompson WPtel: [address] [place] [address] Other 07/13/2012 Patient Education: Patient Medication Summary [...] medications 05/26/2012 Appointment: Valentina Smith WPtel: [phone] [phone] Other 05/26/2012 Patient Education: Patient Medication Summary Completed 05/26/2012 Appointment: Valentina Smith WPtel: [facility]9 [phone] Sick 03/15/2012 Appointment: DonnaSvetlanay WPtel: [facility]5 [facility] Injection 03/02/2012 Patient Education: [...] the medication. 02/15/2012 Appointment: Valentina Smith WPtel: [address] [place], [place] [phone] [place] [address] Other 02/15/2012 Patient Education: Patient Medication Summary [...] to medications 01/13/2012 Appointment: Valentina Smith WPtel: [facility]5 [phone] Other 01/13/2012 Patient Education: Patient Medication Summary Completed 01/13/2012 Appointment: Valentina Smith WPtel: [address] [place] [address] Other 01/06/2012 Visit Plan: Asthma - chest xray and symbicort sample today. Patellofemoral syndrome- recommended physical therapy. Costochondritis - recommended pt to use antiinflammatories as able for treatment of rib/sternum irritation and for pt to call if her symptoms do not improve. 12/21/2011 Appointment: Aicha Thompson WPtel: [facility]5 [facility]66[facility] Other 12/21/2011 Patient Education: Patient Medication [...] the office. 10/02/2011 Appointment: Valentina Smith WPtel: [facility]5 [facility] [place] [address] Other 10/02/2011 Patient Education: Patient Medication Summary Completed 10/02/2011 Visit Plan: Pain in joints-arms, elbows-recent fall- discussed natural and expected course of this diagnosis and to alert me if symptoms do not follow expected course, or if any worse. Patient verbalized understanding. Neck bmxo-jjutybp-mzystyutj physical therapy-patient declined at this time-going to see the erp analyst this afternoon. B12 deficiency-B12 injection today in the office. 09/01/2011 Appointment: Valent[facility] Smith [facility]Ptel: [phone] [place] Other 09/01/2011 Patient Education: Patient [...] management sparingly. 08/03/2011 Appointment: Aicha Thompson WPtel: [facility] Follow up 08/03/2011 Patient Education: Patient [...] HER PAIN. 06/29/2011 Appointment: Aicha Thompson WPtel: [facility]9 [facility] [place] Follow up 06/29/2011 Patient Education: Patient Medication Summary Completed 06/29/2011 Appointment: Aicha Thompson WPtel: [facility] [place] Other 06/24/2011 Visit Plan: Right knee pain, bilateral wrist pain-recent fall-discussed natural and expected course of this diagnosis and to alert me if symptoms do not follow expected course, or if any worse. Patient verbalized understanding. Recommend follow up with Ortho physician if pain persists. 06/22/2011 Appointment: Valentina Smith WPtel: 101[address] [phone] [place] Other 06/22/2011 Patient Education: Patient Medication Summary Completed 06/22/2011 Visit Plan: Knee and Ankle pain and instability- recommend re-evaluation by an hedis specialist at [facility] [address] [place] [address]. Pt has been recommended to go back to Dr. Corbin at [facility] [address] [place] [address] as my office did not get a [...] of fibromyalgia. 06/11/2011 Appointment: Aicha Thompson WPtel: 1013 [facility] [place] Injection 06/11/2011 Appointment: Aicha Thompson WPtel: 1015 [facility] Other 06/11/2011 Patient Education: Patient Medication Summary Completed 06/11/2011 Visit Plan: Knee and Ankle pain and instability- recommend evaluation by an hedis specialist at [facility]. The pt has been previously referred [...] physical appearance. 03/11/2011 Appointment: Aicha Thompson WPtel: [facility] Other 03/11/2011 Patient Education: Patient Medication Summary Completed 03/11/2011 Patient Education: .Amazing charts Diabetic meal planning guide Completed 03/11 Appointment: Aicha Thompson WPtel: [facility]6 [facility] [place] Injection 02/23/2011 Patient Education: Patient Medication Summary Completed 02/23/2011 Visit Plan: iliotibial band syndrome - continue with current treatment per erp analyst. I have recommend use of biofreeze to the right outer leg. I have given pt stretching exercises for home. Fibromyalgia - chronic - continue with exercise, heat, and prn pain medication. Knee pain - apparently resolved prior to her appointment today. No change in present management, call if pain returns. 02/12/2011 Appointment: Aicha Thompson WPtel: [id number] Other 02/12/2011 Patient Education: [...] Medication Summary Completed 01/29/2011 Instructions Comment . Ulcer-left knee-fibrous tissue removed from wound bed to reveal pink granulation tissue-wound cleansed and dressing applied. Instructed patient on wound care. Return in 10 days for follow up. . Neck pain-plan to xray cervical spine-refer to ortho as appropriate-patient verbalized understanding of plan. . Hypertension - well controlled - continue [...] today B12 injection today in the office Use suppositories every night for the next 3 nights . Constipation - uncontrolled - I have discussed with the patient the need for adequate fiber and water intake to facilitate soft, easily passed stools. The pt noted understanding of our conversation. I have also recommended that she continue to follow the instructions given to her from her director of teaching and learning and she is to call him if her constipation is uncontrolled. Hemorrhoids-use suppositories as directed. . Chronic Depression and anxiety - the [...] in blood pressure readings at home. . Cervicalgia-MRI neck without contrast for further evaluation for further evaluation of persistent neck pain despite PT. MRI RIGHT ANKLE NEOSPORIN TO SORE RIGHT FOOT . Right ankle pain/instability-xray negative-will obtain MRI ankle Ulcer right foot-instructed patient on wound care and the importance of keeping wound clean-f/u in 10-14 days for re-evaluation . Hypertension - well controlled - continue [...] shoes and use walker for stability . Anxiety-fairly well controlled-does have added stress with family-no change in medications-call if symptoms worsen Neck pain-recommend rest, ice and anti inflammatories as directed-call if symptoms do not resolve or if any worse. Patient verbalized understanding of plan. . [place] referral - pt to indicate when and who she would like to go to - for neck and back AFO for both legs - [facility] in [place], [place]- fax # [phone] pt has been seen by technical support specialist - need brace because of bilateral [...] weakness/pain-recommend physical therapy for strengthening Dr Saunders -[facility] . Bilateral foot and ankle pain-now has AFOs-we have made her several appt with podiatrists which she has not kept-recommend patient call Dr Saunders and reschedule appt with him. Neck pain-[facility] appt next week-KEEP APPOINTMENT! sleep study -[facility] . Headaches-patient is not wearing her CPAP and i suspect this may be contributing to her headaches-will contact [facility] for a new sleep study Neck pain -spinal stenosis -[facility] has attempted to contact patient with no response from [facility]-I have instructed her to call them and get appt scheduled . Hemorrhoidal skin tag-no acute inflammation today -may use hemorrhoid cream as directed as needed-call with any concerns, bleeding, etc. . Ulcer left kyfi-geeibmqx-b/u in 10 days . iliotibial band syndrome - continue with current treatment per erp analyst. I have recommend use of biofreeze to [...] in blood pressure readings at home. . Right foot pain-lantar fasciitis- pt was [...] regimen-no changes in medications Dr. Ramey - [facility] . Hypertension - well controlled [...] to send her to for further evaluation MAKE APPOINTMENT CALLY KELLY/DR IBARRA TO FOLLOW [...] for PT-recommend appt with Dr Ibarra . Low back pain-discussed need to evaluate cervical issues first-may benefit from PT-continue anti inflammatories as directed Cervical stenosis-called Dr Ramey's office-referral pending-they will call the patient with the appt . Knee and Ankle pain and instability- recommend re- evaluation by an hedis specialist at [facility] of the [address] [place] [address]. Pt has been recommended to go back to Dr. Corbin at [facility] the [facility] as my office did not get [...] for treatment of fibromyalgia. REFER TO [facility] DX BILATERAL FOOT AND ANKLE PAIN . Bilateral foot pain-foot drop-patient getting AFOs-refer to podiatry for evaluation-wants to see someone in [place] MRI NECK AND BRAIN Call [facility] [...] worsen, or with any questions or concerns. CONTACT DR RAMEY ABOUT REFERRAL TO FOR NECK ISSUES . Vaginal yeast infection-RX for diflucan B12 deficiency-check labs . Knee and Ankle pain and instability- recommend evaluation by an [facility]dis specialist at [facility]. The pt has been previously referred [...] obesity versus her usual physical appearance. . Hypertension - well controlled - continue [...] the list of the neurologists that her licensing services clerk has recommended and we would consider a [...] the list of the neurologists that her licensing services clerk has recommended and we would consider a [...] if any worse. Patient verbalized understanding. Neck gntx-pnenlbb-kgjffnpnj physical therapy-patient declined at this time- going to see the erp analyst this afternoon. B12 deficiency-B12 injection today in [...] Kenalog injection today in the office. . Wrist pain- recommend pt to have [...] NOT LET OTHERS KNOW OF HER PAIN. . Ulcer of oush-waypbhk-aqsse instructions provided today and instructed patient to return as directed-keep wound clean and dry. Hemorrhoids-refill anusol suppositories and use as directed B12 deficiency-b12 injection today in the office Rvyljzyse-iefyavazgrpa-qyavxyc injection today in the office-continue oral medications as directed . Ulcer of knee healing-silver nitrate to granulation tissue-instructed patient to monitor and call if it does not completely heal for appointment-instructed on wound care-patient and mother verbalized understanding of plan. . Generalized abd mxxo-JDS-nmsegg cipro/flagyl-culture urine-recommend patient follow up with Dr Grace for an appt if abdominal pain does not improve Low potassium-check labs . Generalized abd pvvb-AQG-sgeimr cipro/flagyl-culture urine-recommend patient follow up with Dr [...] for acute changes B12 injection . Neck tcnv-gfvfubr-svqujia to continue f/u with [facility]-her symptoms have [...] her mother verbalized understanding of plan. . Ulcer-left knee-fibrous tissue removed from wound bed to reveal pink granulation tissue-wound cleansed and dressing applied. Instructed patient on wound care. Return in 10 days for follow up. Check labs-cbc, cmp, tsh, lipid panel-I gave [...] in 1 week for follow up. . Joint pain - again reassured Iker [...] is to call for acute concerns. . Asthma - chest xray and symbicort [...] (may be called three old goats) at [employer] and home. . Hypertension - well controlled [...] for further evaluation Bilateral ankle pain-xray ankles B12 INJECTION TODAY . Chronic Depression and [...] patient's pharmacy and instructed on use. . Ulcer of knee-wound care instructions provided [...] with Dr. Grace before her next infusion CHECK LABS WILL GET REPORT FROM DR [...] situational exposure. No change in current medications. DEMETRIA WRAPS TO LOWER LEGS CUT BACK [...]
--- OUTSIDE RECORDS SUMMARY | 2018-08-03 08:02 | XMS REPORT | CCD ---
Author Author [facility]a Thompson Organization [facility] Address [address] [place] [address] Phone Care Team Providers Care Commission Associate Name Role Phone PP Unavailable CCM Unavailable Summary Purpose Interface Exchange Insurance Providers Payer name Policy type / Coverage type Covered constitution party ID Effective Begin Date Effective End Date WPS Medicare Part B Medicare Part B [id number] 2013 Unknown [facility] Medicare Part B [id number] 2013 Unknown Family history Grandmother Diagnosis Age [...] status Unknown 01/29/[address]: 959229807 Never smoker 01/29/[address]: 707542 Currently drinks alcohol mixed drink before bed [...] sleep apnea Unknown Active 05/14/2011 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/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 Unknown Overweight (BMI [...] Active sleep apnea Unknown 05/14/2011 Active 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 03/11/2011 Active Overweight (BMI 25.0-29.9) [...] Fill Instructions Valium 10 mg tablet RxNorm: 528150 1 Tablet(s) daily as needed 04/18/2018 06/16/2018 Active hydrocodone 10 mg-acetaminophen 325 mg tablet RxNorm: 225127 1 tab bid x 1 week then daily x 2 weeks then stop Tablet(s) PO Q6 for pain 04/1805/10/2018 Active diazepam 10 mg tablet RxNorm: 227120 1 Tablet(s) BID 04/18/2018 06/16/2018 Active Claritin-D 12 Hour 5 mg-120 mg tablet,extended release RxNorm: 4956715 Tablet(s) as needed TAKE 1 TABLET BY MOUTH TWICE DAILY NEEDED 201706/12/2018 Active tramadol 50 mg tablet RxNorm: 797053 1-2 Tablet(s) PO TID as needed 03/10/2018 04/08/2018 Inactive cyanocobalamin (vit B-12) 1,000 mcg/mL injection solution RxNorm: 986575 1 Milliliter(s) Inj 03/10/2018 03/10/2018 Inactive Seroquel 100 mg tablet RxNorm: 616502 1 TABLET(S) PO BID 201703/01/2019 Active TAKE 1 TABLET BY MOUTH TWICE DAILY hydrocodone 10 mg-acetaminophen 325 mg tablet RxNorm: 391628 1-2 Tablet(s) PO Q6 as needed for pain 02/21/2018 03/09/2018 Inactive Ventolin HFA 90 mcg/actuation aerosol inhaler RxNorm: 944532 1 OR 2 PUFF(S) INH Q6 PRN NEEDED 01/13/2018 07/11/2018 Active trazodone 100 mg tablet RxNorm: 606086 TABLET(S) TAKE 2 TABLETS BY MOUTH EVERY NIGHT AT BEDTIME 12/07/2017 09/02/2018 Active hydrocodone 10 mg-acetaminophen 325 mg tablet RxNorm: 528167 1-2 Tablet(s) PO Q6 as needed for pain 12/03/2017 12/25/2017 Inactive Ventolin HFA 90 mcg/actuation aerosol inhaler RxNorm: 515156 1 OR 2 PUFF(S) INH Q6 PRN NEEDED 11/26/2017 01/12/2018 Inactive Savella 100 mg tablet RxNorm: 596043 TABLET(S) PO TAKE 1 TABLET BY MOUTH DAILY 11/23/2017 No Stop Date Active Effexor XR 150 mg capsule,extended release RxNorm: 489740 1 CAPSULE(S) PO BID 1 CAPSULE(S) PO BID 11/23/2017 04/21/2018 Active TAKE 1 CAPSULE BY MOUTH TWICE DAILY Claritin-D 12 Hour 5 mg-120 mg tablet,extended release RxNorm: 2719353 Tablet(s) as needed TAKE 1 TABLET BY MOUTH TWICE DAILY NEEDED 201701/20/2018 Inactive diazepam 10 mg tablet RxNorm: 907079 Tablet(s) TAKE 1 TABLET BY MOUTH FOUR TIMES DAILY NEEDED 11/23/2017 03/09/2018 Inactive Valium 10 mg tablet RxNorm: 336741 1 Tablet(s) QID as needed 11/16/2017 01/14/2018 Inactive metoprolol tartrate 25 mg tablet RxNorm: 824725 TABLET(S) TABLET(S) 1/2 TABLET(S) PO BID TAKE 1/2 TABLET BY MOUTH TWICE DAILY 11/12/2017 No Stop Date Active pantoprazole 40 mg tablet,delayed release RxNorm: 016556 TAKE 1 TABLET BY MOUTH EVERY DAY 11/12/2017 05/10/2018 Active betamethasone dipropionate 0.05 % topical cream RxNorm: 238188 1 APPLICATION TOP BID 10/22/2017 11/04/2017 Inactive tramadol 50 mg tablet RxNorm: 696102 1-2 Tablet(s) PO TID as needed 10/20/2017 01/16/2018 Inactive prednisone 10 mg tablets in a dose pack RxNorm: 440853 1 Tablet(s) PO UD 10/19/2017 10/24/2017 Inactive 6-5-4-3-2-1 cyanocobalamin (vit B-12) 1,000 mcg/mL injection solution RxNorm: 779018 1 Milliliter(s) Inj 10/19/2017 10/19/2017 Inactive betamethasone dipropionate 0.05 % topical cream RxNorm: 011299 1 Application TOP BID 10/19/2017 10/21/2017 Inactive hydrocodone 10 mg-acetaminophen 325 mg tablet RxNorm: 171233 1-2 Tablet(s) PO Q6 as needed for pain 10/19/2017 11/10/2017 Inactive Effexor XR 150 mg capsule,extended release RxNorm: 884594 1 Capsule(s) PO BID 1 CAPSULE(S) PO BID 10/19/2017 11/22/2017 Inactive TAKE 1 CAPSULE BY MOUTH TWICE DAILY prednisone 5 mg tablet RxNorm: 059328 1 Tablet(s) PO UD 2017 No Stop Date Active Cipro 500 mg tablet RxNorm: 956464 1 Tablet(s) PO BID 201709/26/2017 Inactive Flagyl 500 mg tablet RxNorm: 629429 1 Tablet(s) PO TID 201709/26/2017 Inactive prednisone 10 mg tablet RxNorm: 443044 1 Tablet(s) PO UD 201709/16/2017 Inactive 2 tabs daily x 3 days 1 tab daily x 3 daily then resume usual 5mg daily hydrocodone 10 mg-acetaminophen 325 mg tablet RxNorm: 924254 1-2 Tablet(s) PO Q6 as needed for pain 09/10/2017 10/02/2017 Inactive Savella 100 mg tablet RxNorm: 097983 TABLET(S) PO TAKE 1 TABLET BY MOUTH DAILY 08/31/2017 No Stop Date Active cyanocobalamin (vit B-12) 1,000 mcg/mL injection solution RxNorm: 999658 1 Milliliter(s) Inj 08/19/2017 08/19/2017 Inactive pantoprazole 40 mg tablet,delayed release RxNorm: 552102 TAKE 1 TABLET BY MOUTH EVERY DAY 08/17/2017 11/11/2017 Inactive trazodone 100 mg tablet RxNorm: 488963 TABLET(S) TAKE 2 TABLETS BY MOUTH EVERY NIGHT AT BEDTIME 08/17/2017 12/06/2017 Inactive Ventolin HFA 90 mcg/actuation aerosol inhaler RxNorm: 517187 1 OR 2 PUFF(S) INH Q6 PRN NEEDED 08/11/2017 01/07/2018 Inactive Advair Diskus 250 mcg-50 mcg/dose powder for inhalation RxNorm: 4279023 1 Puff(s) INH BID 08/11/2017 12/08/2017 Inactive Advair Diskus 250 mcg-50 mcg/dose powder for inhalation RxNorm: 2096320 1 PUFF(S) INH BID 08/11/2017 11/08/2017 Inactive Ventolin HFA 90 mcg/actuation aerosol inhaler RxNorm: 076485 1 OR 2 PUFF(S) INH Q6 PRN NEEDED 08/11/2017 11/25/2017 Inactive hydrocodone 10 mg-acetaminophen 325 mg tablet RxNorm: 755022 1-2 Tablet(s) PO Q6 as needed for pain 08/03/2017 08/25/2017 Inactive tramadol 50 mg tablet RxNorm: 767760 1-2 Tablet(s) PO TID as needed 07/26/2017 09/22/2017 Inactive Valium 10 mg tablet RxNorm: 299993 1 Tablet(s) QID as needed 07/09/2017 09/06/2017 Inactive Effexor XR 150 mg capsule,extended release RxNorm: 705031 Capsule(s) 1 CAPSULE(S) PO BID 07/07/2017 10/18/2017 Inactive TAKE 1 CAPSULE BY MOUTH TWICE DAILY metoprolol tartrate 25 mg tablet RxNorm: 296171 Tablet(s) TABLET(S) 1/2 TABLET(S) PO BID TAKE 1/2 TABLET BY MOUTH TWICE DAILY 07/07/2017 11/11/2017 Inactive diazepam 10 mg tablet RxNorm: 341135 Tablet(s) TAKE 1 TABLET BY MOUTH FOUR TIMES DAILY NEEDED 07/07/2017 08/02/2017 Inactive cyanocobalamin (vit B-12) 1,000 mcg/mL injection solution RxNorm: 324730 1 Milliliter(s) Inj 07/06/2017 07/06/2017 Inactive tramadol 50 mg tablet RxNorm: 901523 1-2 Tablet(s) PO TID as needed 06/21/2017 09/17/2017 Inactive hydrocodone 10 mg-acetaminophen 325 mg tablet RxNorm: 154832 1-2 Tablet(s) PO Q6 as needed for pain 06/17/2017 07/09/2017 Inactive cyclobenzaprine 10 mg tablet RxNorm: 084896 TAKE 1 TABLET BY MOUTH THREE TIMES DAILY NEEDED FOR MUSCLE SPASMS 06/08/2017 08/31/2018 Active Lipitor 20 mg tablet RxNorm: 387166 1 TABLET(S) PO DAILY 201706/02/2018 Active TAKE ONE TABLET BY MOUTH EVERY NIGHT AT BEDTIME Claritin-D 12 Hour 5 mg-120 mg tablet,extended release RxNorm: 9089519 Tablet(s) as needed TAKE 1 TABLET BY MOUTH TWICE DAILY NEEDED 201709/04/2017 Inactive trazodone 100 mg tablet RxNorm: 611936 TABLET(S) TAKE 2 TABLETS BY MOUTH EVERY NIGHT AT BEDTIME 05/17/2017 08/14/2017 Inactive cyclobenzaprine 5 mg tablet RxNorm: 943246 Tablet(s) PO TAKE 1 TABLET BY MOUTH THREE TIMES DAILY NEEDED FOR MUSCLE SPASMS (New dose has not been sent to pharmacy) 05/11/2017 No Stop Date Active Valium 5 mg tablet RxNorm: 451865 1 Tablet(s) PO QID as needed (New dose has not been sent to pharmacy) 05/11/2017 No Stop Date Active diazepam 10 mg tablet RxNorm: 554466 TAKE 1 TABLET BY MOUTH FOUR TIMES DAILY NEEDED 04/28/2017 05/27/2017 Inactive hydrocodone 10 mg-acetaminophen 325 mg tablet RxNorm: 787663 1-2 Tablet(s) PO Q6 as needed for pain 04/27/2017 05/19/2017 Inactive cyanocobalamin (vit B-12) 1,000 mcg/mL injection solution RxNorm: 102308 1 Milliliter(s) Inj 04/27/2017 04/27/2017 Inactive hydrocodone 10 mg-acetaminophen 325 mg tablet RxNorm: 883877 1-2 Tablet(s) PO Q6 as needed for pain 03/17/2017 04/08/2017 Inactive Seroquel 100 mg tablet RxNorm: 724189 1 TABLET(S) PO BID 201603/06/2018 Inactive TAKE 1 TABLET BY MOUTH TWICE DAILY Valium 10 mg tablet RxNorm: 532898 1 Tablet(s) QID as needed 03/05/2017 05/03/2017 Inactive Claritin-D 12 Hour 5 mg-120 mg tablet,extended release RxNorm: 1958960 Tablet(s) as needed TAKE 1 TABLET BY MOUTH TWICE DAILY NEEDED 201604/13/2018 Inactive pantoprazole 40 mg tablet,delayed release RxNorm: 030395 TAKE 1 TABLET BY MOUTH EVERY DAY 02/26/2017 08/16/2017 Inactive tramadol 50 mg tablet RxNorm: 219658 1-2 Tablet(s) PO TID as needed 02/17/2017 05/17/2017 Inactive hydrocodone 10 mg-acetaminophen 325 mg tablet RxNorm: 118074 1-2 Tablet(s) PO Q6 as needed for pain 02/17/2017 03/11/2017 Inactive Valium 10 mg tablet RxNorm: 256231 1 Tablet(s) QID as needed 02/02/2017 03/03/2017 Inactive (Response to an electronic controlled substance refill request - RxReferenceNumber: [id number]|1|0|1) nystatin 100,000 unit/gram topical powder RxNorm: 895556 1 APPLICATION TOP QID UNTIL HEALED 01/21/2017 No Stop Date Active Advair Diskus 250 mcg-50 mcg/dose powder for inhalation RxNorm: 0990476 1 Puff(s) INH BID 01/21/2017 05/20/2017 Inactive hydrocodone 10 mg-acetaminophen 325 mg tablet RxNorm: 673755 1-2 Tablet(s) PO Q6 as needed for pain 01/21/2017 02/11/2017 Inactive metoprolol tartrate 25 mg tablet RxNorm: 542637 TABLET(S) 1/2 TABLET(S) PO BID TAKE 1/2 TABLET BY MOUTH TWICE DAILY 01/18/2017 07/06/2017 Inactive Effexor XR 150 mg capsule,extended release RxNorm: 538803 1 CAPSULE(S) PO BID 01/11/2017 07/06/2017 Inactive TAKE 1 CAPSULE BY MOUTH TWICE DAILY Effexor XR 150 mg capsule,extended release RxNorm: 764651 1 Capsule(s) PO BID 1 CAPSULE(S) PO BID 01/08/2017 07/06/2017 Inactive TAKE 1 CAPSULE BY MOUTH TWICE DAILY nystatin 100,000 unit/gram topical powder RxNorm: 071594 1 APPLICATION TOP QID UNTIL HEALED 12/17/2016 01/20/2017 Inactive hydrocodone 10 mg-acetaminophen 325 mg tablet RxNorm: 883743 1-2 Tablet(s) PO Q6 as needed for pain 12/17/2016 01/07/2017 Inactive Claritin-D 12 Hour 5 mg-120 mg tablet,extended release RxNorm: 0871817 Tablet(s) as needed TAKE 1 TABLET BY MOUTH TWICE DAILY NEEDED 201602/12/2017 Inactive Lipitor 20 mg tablet RxNorm: 075870 1 TABLET(S) PO DAILY 201606/07/2017 Inactive TAKE ONE TABLET BY MOUTH EVERY NIGHT AT BEDTIME Advair Diskus 250 mcg-50 mcg/dose powder for inhalation RxNorm: 2038434 1 Puff(s) INH BID 11/26/2016 01/20/2017 Inactive Valium 10 mg tablet RxNorm: 524123 1 Tablet(s) QID as needed 11/24/2016 01/22/2017 Inactive (Response to an electronic controlled substance refill request - RxReferenceNumber: [id number]|1|0|1) cyanocobalamin (vit B-12) 1,000 mcg/mL injection solution RxNorm: 701832 1 Milliliter(s) Inj 11/17/2016 11/17/2016 Inactive tramadol 50 mg tablet RxNorm: 593698 1-2 Tablet(s) PO TID as needed 11/06/2016 10/19/2017 Inactive hydrocodone 10 mg-acetaminophen 325 mg tablet RxNorm: 021867 1-2 Tablet(s) PO Q6 as needed for pain 11/06/2016 11/27/2016 Inactive nystatin 100,000 unit/gram topical powder RxNorm: 949409 1 Application TOP QID until healed 10/27/2016 12/16/2016 Inactive cyanocobalamin (vit B-12) 1,000 mcg/mL injection solution RxNorm: 845272 1 Milliliter(s) Inj 10/12/2016 10/12/2016 Inactive trazodone 100 mg tablet RxNorm: 682722 Tablet(s) TAKE 2 TABLETS BY MOUTH EVERY NIGHT AT BEDTIME 09/24/2016 03/22/2017 Inactive Valium 10 mg tablet RxNorm: 771291 1 Tablet(s) QID as needed 09/24/2016 11/22/2016 Inactive (Response to an electronic controlled substance refill request - RxReferenceNumber: [id number]|1|0|1) Savella 100 mg tablet RxNorm: 557320 TABLET(S) PO TAKE 1 TABLET BY MOUTH DAILY 09/18/2016 08/30/2017 Inactive pantoprazole 40 mg tablet,delayed release RxNorm: 735768 TAKE 1 TABLET BY MOUTH EVERY DAY 09/18/2016 02/25/2017 Inactive cyanocobalamin (vit B-12) 1,000 mcg/mL injection solution RxNorm: 300176 1 Milliliter(s) Inj 09/11/2016 09/11/2016 Inactive hydrocodone 10 mg-acetaminophen 325 mg tablet RxNorm: 084113 1-2 Tablet(s) PO Q6 as needed for pain 08/24/2016 11/05/2016 Inactive (Response to an electronic controlled substance refill request - RxReferenceNumber: [id number]|1|0|1) Claritin-D 12 Hour 5 mg-120 mg tablet,extended release RxNorm: 3579344 Tablet(s) TAKE 1 TABLET BY MOUTH TWICE DAILY NEEDED 08/13/2016 04/13/2018 Inactive tramadol 50 mg tablet RxNorm: 981224 1-2 Tablet(s) PO TID PRN as needed 08/11/2016 11/05/2016 Inactive metoprolol tartrate 25 mg tablet RxNorm: 211729 TABLET(S) 1/2 TABLET(S) PO BID TAKE 1/2 TABLET BY MOUTH TWICE DAILY 08/10/2016 01/17/2017 Inactive pantoprazole 40 mg tablet,delayed release RxNorm: 066450 TAKE 1 TABLET BY MOUTH EVERY DAY 08/10/2016 11/05/2016 Inactive Savella 100 mg tablet RxNorm: 508934 TABLET(S) PO TAKE 1 TABLET BY MOUTH DAILY 08/10/2016 11/05/2016 Inactive Ventolin HFA 90 mcg/actuation aerosol inhaler RxNorm: 859157 1 OR 2 PUFF(S) INH Q6 PRN NEEDED 08/07/2016 02/02/2017 Inactive Diflucan 150 mg tablet RxNorm: 452864 1 Tablet(s) PO daily 08/201608/13/2016 Inactive nystatin 100,000 unit/mL oral suspension RxNorm: 421110 5 Milliliter(s) PO QID 08/07/2016 08/16/2016 Inactive hydrocodone 10 mg-acetaminophen 325 mg tablet RxNorm: 686202 1-2 Tablet(s) PO Q6 as needed for pain 08/04/2016 08/23/2016 Inactive (Response to an electronic controlled substance refill request - RxReferenceNumber: [id number]|1|0|1) Valium 10 mg tablet RxNorm: 202102 1 Tablet(s) QID as needed 07/20/2016 09/17/2016 Inactive (Response to an electronic controlled substance refill request - RxReferenceNumber: [id number]|1|0|1) tramadol 50 mg tablet RxNorm: 167981 1-2 Tablet(s) PO TID PRN as needed 07/15/2016 11/05/2016 Inactive ok to give 1 month wjkpze=322 tablets cyanocobalamin (vit B-12) 1,000 mcg/mL injection solution RxNorm: 324190 Milliliter(s) Inj 07/03/2016 07/03/2016 Inactive Seroquel 100 mg tablet RxNorm: 297013 1 TABLET(S) PO BID 201603/15/2017 Inactive TAKE 1 TABLET BY MOUTH TWICE DAILY hydrocodone 10 mg-acetaminophen 325 mg tablet RxNorm: 467310 1-2 Tablet(s) PO Q6 as needed for pain 06/26/2016 08/03/2016 Inactive (Response to an electronic controlled substance refill request - RxReferenceNumber: [id number]|1|0|1) Valium 10 mg tablet RxNorm: 286938 1 Tablet(s) QID as needed 05/11/2016 07/09/2016 Inactive (Response to an electronic controlled substance refill request - RxReferenceNumber: [id number]|1|0|1) tramadol 50 mg tablet RxNorm: 870964 1-2 Tablet(s) PO TID PRN as needed 05/11/2016 07/08/2016 Inactive ok to give 1 month mytjjm=257 tablets cyclobenzaprine 10 mg tablet RxNorm: 820988 TAKE 1 TABLET BY MOUTH THREE TIMES DAILY NEEDED FOR MUSCLE SPASMS 05/11/2016 05/10/2017 Inactive hydrocodone 10 mg-acetaminophen 325 mg tablet RxNorm: 440267 1-2 Tablet(s) PO Q6 as needed for pain 05/06/2016 06/25/2016 Inactive (Response to an electronic controlled substance refill request - RxReferenceNumber: [id number]|1|0|1) cyanocobalamin (vit B-12) 1,000 mcg/mL injection solution RxNorm: 331035 1 Milliliter(s) Inj 04/20/2016 04/20/2016 Inactive hydrocodone 10 mg-acetaminophen 325 mg tablet RxNorm: 492068 1-2 Tablet(s) PO Q6 as needed for pain 04/03/2016 05/05/2016 Inactive (Response to an electronic controlled substance refill request - RxReferenceNumber: [id number]|1|0|1) pantoprazole 40 mg tablet,delayed release RxNorm: 648310 TAKE 1 TABLET BY MOUTH EVERY DAY 04/02/2016 08/09/2016 Inactive Claritin-D 12 Hour 5 mg-120 mg tablet,extended release RxNorm: 7093522 Tablet(s) TAKE 1 TABLET BY MOUTH TWICE DAILY NEEDED 04/02/2016 11/05/2016 Inactive hydrocodone 10 mg-acetaminophen 325 mg tablet RxNorm: 700787 1-2 Tablet(s) PO Q6 as needed for pain 03/12/2016 04/02/2016 Inactive (Response to an electronic controlled substance refill request - RxReferenceNumber: [id number]|1|0|1) Effexor XR 150 mg capsule,extended release RxNorm: 609254 1 CAPSULE(S) PO BID 03/05/2016 01/07/2017 Inactive TAKE 1 CAPSULE BY MOUTH TWICE DAILY Ventolin HFA 90 mcg/actuation aerosol inhaler RxNorm: 105701 1 OR 2 PUFF(S) INH Q6 PRN NEEDED 02/19/2016 08/06/2016 Inactive cyanocobalamin (vit B-12) 1,000 mcg/mL injection solution RxNorm: 546458 Milliliter(s) Inj 02/13/2016 02/13/2016 Inactive hydrocodone 10 mg-acetaminophen 325 mg tablet RxNorm: 119373 1-2 Tablet(s) PO Q6 as needed for pain 02/05/2016 03/11/2016 Inactive (Response to an electronic controlled substance refill request - RxReferenceNumber: [id number]|1|0|1) Valium 10 mg tablet RxNorm: 319716 1 Tablet(s) QID as needed 02/05/2016 05/04/2016 Inactive (Response to an electronic controlled substance refill request - RxReferenceNumber: [id number]|1|0|1) tramadol 50 mg tablet RxNorm: 058853 1-2 Tablet(s) PO TID PRN as needed 02/05/2016 11/05/2016 Inactive ok to give 1 month lvdizj=168 tablets hydrocodone 10 mg-acetaminophen 325 mg tablet RxNorm: 534903 1-2 Tablet(s) PO Q6 as needed for pain 01/08/2016 02/04/2016 Inactive (Response to an electronic controlled substance refill request - RxReferenceNumber: [id number]|1|0|1) metoprolol tartrate 25 mg tablet RxNorm: 736821 Tablet(s) 1/2 TABLET(S) PO BID TAKE 1/2 TABLET BY MOUTH TWICE DAILY 01/08/2016 08/09/2016 Inactive Symbicort 160 mcg-4.5 mcg/actuation HFA aerosol inhaler RxNorm: 7367237 2 INH BID 01/03/2016 11/25/2016 Inactive Symbicort 160 mcg-4.5 mcg/actuation HFA aerosol inhaler RxNorm: 2968373 1 INH daily 01/03/2016 01/02/2016 Inactive Lipitor 20 mg tablet RxNorm: 041446 1 TABLET(S) PO DAILY 201506/26/2016 Inactive TAKE ONE TABLET BY MOUTH EVERY NIGHT AT BEDTIME trazodone 100 mg tablet RxNorm: 484103 TAKE 2 TABLETS BY MOUTH EVERY NIGHT AT BEDTIME 12/30/2015 09/23/2016 Inactive Savella 100 mg tablet RxNorm: 386637 TABLET(S) PO TAKE 1 TABLET BY MOUTH DAILY 12/30/2015 08/09/2016 Inactive hydrocodone 10 mg-acetaminophen 325 mg tablet RxNorm: 462858 1-2 Tablet(s) PO Q6 as needed for pain 12/12/2015 01/07/2016 Inactive (Response to an electronic controlled substance refill request - RxReferenceNumber: [id number]|1|0|1) cyanocobalamin (vit B-12) 1,000 mcg/mL injection solution RxNorm: 397571 1 Milliliter(s) Inj 12/02/2015 12/02/2015 Inactive hydrocodone 10 mg-acetaminophen 325 mg tablet RxNorm: 044064 1-2 Tablet(s) PO Q6 as needed for pain 12/02/2015 12/11/2015 Inactive (Response to an electronic controlled substance refill request - RxReferenceNumber: [id number]|1|0|1) Claritin-D 12 Hour 5 mg-120 mg tablet,extended release RxNorm: 8538773 Tablet(s) TAKE 1 TABLET BY MOUTH TWICE DAILY 11/11/2015 11/10/2015 Inactive Claritin-D 12 Hour 5 mg-120 mg tablet,extended release RxNorm: 0248576 Tablet(s) TAKE 1 TABLET BY MOUTH TWICE DAILY NEEDED 11/11/2015 01/06/2016 Inactive tramadol 50 mg tablet RxNorm: 215492 1-2 Tablet(s) PO TID PRN as needed 11/05/2015 11/05/2016 Inactive ok to give 1 month aznllp=573 tablets Valium 10 mg tablet RxNorm: 597972 1 Tablet(s) QID as needed 11/05/2015 02/02/2016 Inactive (Response to an electronic controlled substance refill request - RxReferenceNumber: [id number]|1|0|1) cyanocobalamin (vit B-12) 1,000 mcg/mL injection solution RxNorm: 054753 1 Milliliter(s) Inj 10/29/2015 10/29/2015 Inactive hydrocodone 10 mg-acetaminophen 325 mg tablet RxNorm: 816313 1-2 Tablet(s) PO Q6 as needed for pain 10/28/2015 12/01/2015 Inactive (Response to an electronic controlled substance refill request - RxReferenceNumber: [id number]|1|0|1) pantoprazole 40 mg tablet,delayed release RxNorm: 271957 TAKE 1 TABLET BY MOUTH EVERY DAY 10/08/2015 04/01/2016 Inactive Seroquel 100 mg tablet RxNorm: 496539 1 TABLET(S) PO BID 201506/29/2016 Inactive TAKE 1 TABLET BY MOUTH TWICE DAILY trazodone 100 mg tablet RxNorm: 052498 TAKE 2 TABLETS BY MOUTH EVERY NIGHT AT BEDTIME 10/08/2015 10/01/2016 Inactive Lipitor 20 mg tablet RxNorm: 747603 1 TABLET(S) PO DAILY 201504/04/2016 Inactive TAKE ONE TABLET BY MOUTH EVERY NIGHT AT BEDTIME hydrocodone 10 mg-acetaminophen 325 mg tablet RxNorm: 248501 1-2 Tablet(s) PO Q6 as needed for pain 09/19/2015 10/18/2015 Inactive (Response to an electronic controlled substance refill request - RxReferenceNumber: [id number]|1|0|1) Valium 10 mg tablet RxNorm: 380234 1 Tablet(s) QID as needed 09/05/2015 11/03/2015 Inactive (Response to an electronic controlled substance refill request - RxReferenceNumber: [id number]|1|0|1) Savella 100 mg tablet RxNorm: 837116 Tablet(s) PO TAKE 1 TABLET BY MOUTH DAILY 07/19/2015 11/05/2016 Inactive Zithromax Z-Lauro 250 mg tablet RxNorm: 916034 1 Tablet(s) PO UD 07/12/2015 11/04/2015 Inactive z lauro hydrocodone 10 mg-acetaminophen 325 mg tablet RxNorm: 190145 1-2 Tablet(s) PO Q6 as needed for pain 07/10/2015 08/08/2015 Inactive (Response to an electronic controlled substance refill request - RxReferenceNumber: [id number]|1|0|1) tramadol 50 mg tablet RxNorm: 437493 1-2 Tablet(s) PO TID PRN as needed 07/04/2015 11/05/2016 Inactive ok to give 1 month ikwkbe=053 tablets hydrocodone 10 mg-acetaminophen 325 mg tablet RxNorm: 713487 1-2 Tablet(s) PO Q6 as needed for pain 06/10/2015 07/09/2015 Inactive (Response to an electronic controlled substance refill request - RxReferenceNumber: [id number]|1|0|1) cyanocobalamin (vit B-12) 1,000 mcg/mL injection solution RxNorm: 047437 Milliliter(s) Inj 06/10/2015 06/10/2015 Inactive pantoprazole 40 mg tablet,delayed release RxNorm: 347512 TABLET(S) PO TAKE 1 TABLET BY MOUTH EVERY DAY 06/10/201511/05 Inactive pantoprazole 40 mg tablet,delayed release RxNorm: 328012 Tablet(s) PO TAKE 1 TABLET BY MOUTH EVERY DAY 06/06/201511/05 Inactive tramadol 50 mg tablet RxNorm: 474702 1-2 Tablet(s) PO TID PRN as needed 05/29/2015 06/27/2015 Inactive ok to give 1 month hhdfpa=060 tablets tramadol 50 mg tablet RxNorm: 803831 1-2 Tablet(s) PO Q6 as needed 05/29/2015 06/09/2015 Inactive Valium 10 mg tablet RxNorm: 590308 1 Tablet(s) QID as needed 05/08/2015 07/06/2015 Inactive (Response to an electronic controlled substance refill request - RxReferenceNumber: [id number]|1|0|1) cyclobenzaprine 10 mg tablet RxNorm: 151703 TAKE 1 TABLET BY MOUTH THREE TIMES DAILY NEEDED FOR MUSCLE SPASMS 05/08/2015 05/10/2016 Inactive Effexor XR 150 mg capsule,extended release RxNorm: 088546 1 Capsule(s) PO BID 1 CAPSULE(S) PO BID 05/08/2015 11/05/2016 Inactive TAKE 1 CAPSULE BY MOUTH TWICE DAILY hydrocodone 10 mg-acetaminophen 325 mg tablet RxNorm: 684636 1-2 Tablet(s) PO Q6 as needed for pain 05/08/2015 06/06/2015 Inactive (Response to an electronic controlled substance refill request - RxReferenceNumber: [id number]|1|0|1) metoprolol tartrate 25 mg tablet RxNorm: 901194 1/2 TABLET(S) PO BID TAKE 1/2 TABLET BY MOUTH TWICE DAILY 05/06/201507/2015 Inactive Claritin-D 12 Hour 5 mg-120 mg tablet,extended release RxNorm: 4311991 TAKE 1 TABLET BY MOUTH TWICE DAILY 04/16/201506/2016 Inactive hydrocodone 10 mg-acetaminophen 325 mg tablet RxNorm: 350344 1-2 Tablet(s) PO Q6 as needed for pain 04/15/2015 05/07/2015 Inactive (Response to an electronic controlled substance refill request - RxReferenceNumber: [id number]|1|0|1) pantoprazole 40 mg tablet,delayed release RxNorm: 220195 TABLET(S) PO TAKE 1 TABLET BY MOUTH EVERY DAY 04/08/201506/06 Inactive hydrocodone 10 mg-acetaminophen 325 mg tablet RxNorm: 158851 1 Tablet(s) PO Q4 PRN TAKE 1-2 TABLETS BY MOUTH EVERY 6 HOURS NEEDED FOR PAIN 03/14/2015 04/12/2015 Inactive (Response to an electronic controlled substance refill request - RxReferenceNumber: [id number]|1|0|1) diazepam 10 mg tablet RxNorm: 954519 1 Tablet(s) TID TAKE 1 TABLET BY MOUTH THREE TIMES DAILY NEEDED 02/08/20152016 Inactive (Response to an electronic controlled substance refill request - RxReferenceNumber: [id number]|1|0|1) Effexor XR 150 mg capsule,extended release RxNorm: 559063 1 CAPSULE(S) PO BID 02/07/2015 05/07/2015 Inactive TAKE 1 CAPSULE BY MOUTH TWICE DAILY cyclobenzaprine 10 mg tablet RxNorm: 259779 TAKE 1 TABLET BY MOUTH THREE TIMES DAILY NEEDED FOR MUSCLE SPASMS 02/07/2015 05/07/2015 Inactive pantoprazole 40 mg tablet,delayed release RxNorm: 643520 TABLET(S) PO TAKE 1 TABLET BY MOUTH EVERY DAY 02/07/201504/07 Inactive hydrocodone 10 mg-acetaminophen 325 mg tablet RxNorm: 981372 1 Tablet(s) PO Q4 PRN TAKE 1-2 TABLETS BY MOUTH EVERY 6 HOURS NEEDED FOR PAIN 01/25/2015 02/23/2015 Inactive (Response to an electronic controlled substance refill request - RxReferenceNumber: [id number]|1|0|1) Bactroban Nasal 2 % ointment RxNorm: 811018 1 Application NASAL BID 01/10/2015 01/10/2015 Inactive mupirocin 2 % topical ointment RxNorm: 116108 1 Application TOP TID 1 APPLICATION TOP PRN 01/10/2015 01/19/2015 Inactive disregard order for nasal ointment , use on left knee trazodone 100 mg tablet RxNorm: 939188 TAKE 2 TABLETS BY MOUTH EVERY NIGHT AT BEDTIME 01/08/2015 10/07/2015 Inactive Seroquel 100 mg tablet RxNorm: 465704 1 TABLET(S) PO BID 201410/04/2015 Inactive TAKE 1 TABLET BY MOUTH TWICE DAILY cyclobenzaprine 10 mg tablet RxNorm: 187304 TAKE 1 TABLET BY MOUTH THREE TIMES DAILY NEEDED FOR MUSCLE SPASMS 01/08/2015 02/06/2015 Inactive hydrocodone 10 mg-acetaminophen 325 mg tablet RxNorm: 362297 1 Tablet(s) PO Q4 PRN TAKE 1-2 TABLETS BY MOUTH EVERY 6 HOURS NEEDED FOR PAIN 12/21/2014 01/19/2015 Inactive (Response to an electronic controlled substance refill request - RxReferenceNumber: [id number]|1|0|1) pantoprazole 40 mg tablet,delayed release RxNorm: 443259 TABLET(S) PO TAKE 1 TABLET BY MOUTH EVERY DAY 12/13/201402/06 Inactive Lipitor 20 mg tablet RxNorm: 645708 1 Tablet(s) PO daily 201409/08/2015 Inactive TAKE ONE TABLET BY MOUTH EVERY NIGHT AT BEDTIME Valium 10 mg tablet RxNorm: 562985 1 Tablet(s) QID as needed 12/12/2014 02/09/2015 Inactive (Response to an electronic controlled substance refill request - RxReferenceNumber: [id number]|1|0|1) hydrocodone 10 mg-acetaminophen 325 mg tablet RxNorm: 380844 Tablet(s) TAKE 1-2 TABLETS BY MOUTH EVERY 6 HOURS NEEDED FOR PAIN 12/12/2014 12/20/2014 Inactive ( Response to an electronic controlled substance refill request - RxReferenceNumber: [id number]|1|0|1) Lipitor 20 mg tablet RxNorm: 151032 1 Tablet(s) PO daily 201412/12/2014 Inactive TAKE ONE TABLET BY MOUTH EVERY NIGHT AT BEDTIME pantoprazole 40 mg tablet,delayed release RxNorm: 872876 TABLET(S) PO TAKE 1 TABLET BY MOUTH EVERY DAY 12/06/201411/05 Inactive Savella 100 mg tablet RxNorm: 209112 Tablet(s) PO TAKE 1 TABLET BY MOUTH DAILY 12/06/2014 07/18/2015 Inactive Lipitor 20 mg tablet RxNorm: 672922 1 Tablet(s) PO daily 201412/10/2014 Inactive TAKE ONE TABLET BY MOUTH EVERY NIGHT AT BEDTIME Valium 10 mg tablet RxNorm: 296758 TAKE 1 TABLET BY MOUTH FOUR TIMES DAILY NEEDED FOR ANXIETY 12/06/2014 12/11/2014 Inactive Valium 10 mg tablet RxNorm: 480161 1 Tablet(s) QID as needed 11/13/2014 12/11/2014 Inactive (Response to an electronic controlled substance refill request - RxReferenceNumber: [id number]|1|0|1) hydrocodone 10 mg-acetaminophen 325 mg tablet RxNorm: 791225 Tablet(s) TAKE 1-2 TABLETS BY MOUTH EVERY 6 HOURS NEEDED FOR PAIN 11/13/2014 12/11/2014 Inactive ( Response to an electronic controlled substance refill request - RxReferenceNumber: [id number]|1|0|1) hydrocodone 10 mg-acetaminophen 325 mg tablet RxNorm: 909086 Tablet(s) TAKE 1-2 TABLETS BY MOUTH EVERY 6 HOURS NEEDED FOR PAIN 11/08/2014 11/12/2014 Inactive ( Response to an electronic controlled substance refill request - RxReferenceNumber: [id number]|1|0|1) Valium 10 mg tablet RxNorm: 427500 1 Tablet(s) QID as needed 11/08/2014 11/12/2014 Inactive (Response to an electronic controlled substance refill request - RxReferenceNumber: [id number]|1|0|1) metoprolol tartrate 25 mg tablet RxNorm: 622250 1/2 TABLET(S) PO BID TAKE 1/2 TABLET BY MOUTH TWICE DAILY 11/08/2014 Inactive Valium 10 mg tablet RxNorm: 100633 TAKE 1 TABLET BY MOUTH FOUR TIMES DAILY NEEDED FOR ANXIETY 11/06/2014 12/09/2014 Inactive Vitamin D2 50,000 unit capsule RxNorm: 725006 1 Capsule(s) PO QW 10/24/2014 10/23/2014 Inactive Vitamin D2 50,000 unit capsule RxNorm: 375846 1 Capsule(s) PO QW x 8 weeks 10/24/2014 12/22/2014 Inactive Entyvio 300 mg intravenous solution RxNorm: 0486241 IV 2014 No Stop Date Active hydrocodone 10 mg-acetaminophen 325 mg tablet RxNorm: 560192 Tablet(s) TAKE 1-2 TABLETS BY MOUTH EVERY 6 HOURS NEEDED FOR PAIN 10/05/2014 11/03/2014 Inactive ( Response to an electronic controlled substance refill request - RxReferenceNumber: [id number]|1|0|1) Valium 10 mg tablet RxNorm: 298417 TAKE 1 TABLET BY MOUTH EVERY 8 HOURS NEEDED 10/05/2014 11/03/2014 Inactive (Response to an electronic controlled substance refill request - RxReferenceNumber: [id number]|1|0|1) Valium 10 mg tablet RxNorm: 518349 1 Tablet(s) PO QID as needed TAKE 1 TABLET BY MOUTH 10/05/2014 11/05/2016 Inactive (Response to an electronic controlled substance refill request - RxReferenceNumber: [id number]|1|0|1) Valium 10 mg tablet RxNorm: 055538 TAKE 1 TABLET BY MOUTH THREE TIMES DAILY NEEDED 09/04/2014 10/03/2014 Inactive (Response to an electronic controlled substance refill request - RxReferenceNumber: [id number]|1|0|1) Valium 10 mg tablet RxNorm: 271373 1 Tablet(s) PO Q8 PRN as needed 09/04/2014 11/09/2014 Inactive hydrocodone 10 mg-acetaminophen 325 mg tablet RxNorm: 335656 Tablet(s) TAKE 1-2 TABLETS BY MOUTH EVERY 6 HOURS NEEDED FOR PAIN 08/27/2014 09/25/2014 Inactive ( Response to an electronic controlled substance refill request - RxReferenceNumber: [id number]|1|0|1) Claritin-D 12 Hour 5 mg-120 mg tablet,extended release RxNorm: 9185837 1 Tablet(s ) PO BID 08/27/2014 04/16/2015 Inactive Ventolin HFA 90 mcg/actuation aerosol inhaler RxNorm: 044339 1 or 2 Puff(s) INH Q6 PRN as needed 08/09/2014 03/06/2015 Inactive pantoprazole 40 mg tablet,delayed release RxNorm: 718767 Tablet(s) PO TAKE 1 TABLET BY MOUTH EVERY DAY 08/09/201408/08 Inactive pantoprazole 40 mg tablet,delayed release RxNorm: 250417 TAKE 1 TABLET BY MOUTH EVERY DAY 08/09/2014 11/05/2016 Inactive diazepam 10 mg tablet RxNorm: 051901 TAKE 1 TABLET BY MOUTH THREE TIMES DAILY NEEDED 07/02/2014 07/31/2014 Inactive (Response to an electronic controlled substance refill request - RxReferenceNumber: [id number]|1|0|1) Valium 10 mg tablet RxNorm: 505056 1 Tablet(s) PO Q8 PRN as needed 07/02/2014 07/01/2014 Inactive hydrocodone 10 mg-acetaminophen 325 mg tablet RxNorm: 192592 Tablet(s) TAKE 1-2 TABLETS BY MOUTH EVERY 6 HOURS NEEDED FOR PAIN 06/14/2014 07/13/2014 Inactive ( Response to an electronic controlled substance refill request - RxReferenceNumber: [id number]|1|0|1) diazepam 10 mg tablet RxNorm: 506222 TAKE 1 TABLET BY MOUTH THREE TIMES DAILY NEEDED 05/29/2014 06/27/2014 Inactive (Response to an electronic controlled substance refill request - RxReferenceNumber: [id number]|1|0|1) diazepam 10 mg tablet RxNorm: 255568 Tablet(s) PO TAKE 1 TABLET BY MOUTH THREE TIMES DAILY NEEDED 05/29/20142013 Inactive (Appended: Controlled substance eRx refill - RxReferenceNumber: [id number]|1|0|1) hydrocodone 10 mg-acetaminophen 325 mg tablet RxNorm: 474422 Tablet(s) TAKE 1-2 TABLETS BY MOUTH EVERY 6 HOURS NEEDED FOR PAIN 05/17/2014 06/13/2014 Inactive ( Response to an electronic controlled substance refill request - RxReferenceNumber: [id number]|1|0|1) diazepam 10 mg tablet RxNorm: 136177 Tablet(s) PO TAKE 1 TABLET BY MOUTH THREE TIMES DAILY NEEDED 04/27/20142013 Inactive (Appended: Controlled substance eRx refill - RxReferenceNumber: [id number]|1|0|1) Anucort-HC 25 mg suppository RxNorm: 4310431 1 SUPPOSITORY RTL QDAY PRN NEEDED 04/03/2014 06/01/2014 Inactive metoprolol tartrate 25 mg tablet RxNorm: 418923 1/2 TABLET(S) PO BID TAKE 1/2 TABLET BY MOUTH TWICE DAILY 04/03/201408/2014 Inactive Anucort-HC 25 mg suppository RxNorm: 5286906 1 SUPPOSITORY RTL QDAY PRN NEEDED 04/03/2014 06/01/2014 Inactive Seroquel 100 mg tablet RxNorm: 790891 1 TABLET(S) PO BID 201312/28/2014 Inactive TAKE 1 TABLET BY MOUTH TWICE DAILY Anucort-HC 25 mg suppository RxNorm: 6217255 1 SUPPOSITORY RTL QDAY PRN NEEDED 04/03/2014 06/01/2014 Inactive hydrocodone 10 mg-acetaminophen 325 mg tablet RxNorm: 279612 Tablet(s) TAKE 1-2 TABLETS BY MOUTH EVERY 6 HOURS NEEDED FOR PAIN 03/22/2014 04/20/2014 Inactive ( Response to an electronic controlled substance refill request - RxReferenceNumber: [id number]|1|0|1) Claritin-D 12 Hour 5 mg-120 mg tablet,extended release RxNorm: 5275171 1 Tablet(s ) PO BID 03/22/2014 2014 Inactive diazepam 10 mg tablet RxNorm: 608149 TAKE 1 TABLET BY MOUTH THREE TIMES DAILY NEEDED 03/19/2014 04/16/2014 Inactive (Response to an electronic controlled substance refill request - RxReferenceNumber: [id number]|1|0|1) Lipitor 20 mg tablet RxNorm: 525226 1 TABLET(S) PO DAILY 201312/05/2014 Inactive TAKE ONE TABLET BY MOUTH EVERY NIGHT AT BEDTIME Effexor XR 150 mg capsule,extended release RxNorm: 065732 1 CAPSULE(S) PO BID 03/01/2014 01/24/2015 Inactive TAKE 1 CAPSULE BY MOUTH TWICE DAILY Claritin-D 12 Hour 5 mg-120 mg tablet,extended release RxNorm: 7374577 1 Tablet(s ) PO BID 02/19/2014 03/21/2014 Inactive cyanocobalamin (vit B-12) 1,000 mcg/mL injection solution RxNorm: 815410 Milliliter(s) Inj 02/15/2014 02/15/2014 Inactive hydrocodone 10 mg-acetaminophen 325 mg tablet RxNorm: 420783 1 Tablet(s) PO Q6 PRN TAKE ONE TO TWO TABLETS BY MOUTH EVERY 6 HOURS NEEDED FOR PAIN 01/30/2014 01/30/2014 Inactive (Response to an electronic controlled substance refill request - RxReferenceNumber: [id number]|1|0|1) hydrocodone 10 mg-acetaminophen 325 mg tablet RxNorm: 192742 TAKE 1-2 TABLETS BY MOUTH EVERY 6 HOURS NEEDED FOR PAIN 01/30/2014 02/19/2014 Inactive (Response to an electronic controlled substance refill request - RxReferenceNumber: [id number]| [id number]|1|0|1) cyanocobalamin (vit B-12) 1,000 mcg/mL injection kit RxNorm: 751909 1 Milliliter(s ) Inj 01/15/2014 01/15/2014 Inactive Kenalog 40 mg/mL suspension for injection RxNorm: 4743192 1 Milliliter(s) Inj 01/15/2014 01/15/2014 Inactive Anucort-HC 25 mg suppository RxNorm: 3857592 1 Suppository RTL QDAY PRN as needed 01/15/2014 02/13/2014 Inactive hydrocodone 10 mg-acetaminophen 325 mg tablet RxNorm: 711972 TAKE ONE TO TWO TABLETS BY MOUTH EVERY 6 HOURS NEEDED FOR PAIN 12/29/2013 01/18/2014 Inactive ( Response to an electronic controlled substance refill request - RxReferenceNumber: [id number]|1|0|1) trazodone 100 mg tablet RxNorm: 043748 TAKE 2 TABLETS BY MOUTH EVERY NIGHT AT BEDTIME 12/20/2013 12/14/2014 Inactive mupirocin 2 % topical ointment RxNorm: 635432 1 APPLICATION TOP PRN 12/14/2013 01/09/2015 Inactive cyanocobalamin (vit B-12) 1,000 mcg/mL injection solution RxNorm: 995864 1 Milliliter(s) Inj 12/04/2013 12/04/2013 Inactive Savella 100 mg tablet RxNorm: 754514 1 Tablet(s) PO daily TAKE 1 TABLET BY MOUTH DAILY 11/28/2013 11/05/2016 Inactive Savella 100 mg tablet RxNorm: 834440 Tablet(s) PO TAKE 1 TABLET BY MOUTH DAILY 10/27/2013 11/27/2013 Inactive mupirocin 2 % topical ointment RxNorm: 069615 1 Application TOP PRN 10/17/2013 No Stop Date Active trazodone 100 mg tablet RxNorm: 087710 Tablet(s) PO TAKE 2 TABLETS BY MOUTH EVERY NIGHT AT BEDTIME 09/26/2013 11/05/2016 Inactive cyclobenzaprine 10 mg tablet RxNorm: 706243 Tablet(s) PO TAKE ONE TABLET BY MOUTH THREE TIMES DAILY 09/26/2013 01/07/2015 Inactive diazepam 10 mg tablet RxNorm: 371443 Tablet(s) PO TAKE 1 TABLET BY MOUTH THREE TIMES DAILY NEEDED 08/15/20132013 Inactive (Appended: Controlled substance eRx refill - RxReferenceNumber: [id number]|1|0|1) diazepam 10 mg tablet RxNorm: 801956 1 Tablet(s) PO TID PRN TAKE 1 TABLET BY MOUTH THREE TIMES DAILY NEEDED 08/15/2013 Inactive (Appended: Controlled substance eRx refill - RxReferenceNumber: [id number]|1|0|1) Vitamin B-12 1,000 mcg/mL injection solution RxNorm: 196227 Milliliter(s) Inj 07/24/2013 07/24/2013 Inactive pantoprazole 40 mg tablet,delayed release RxNorm: 427701 Tablet(s) PO TAKE 1 TABLET BY MOUTH EVERY DAY 07/20/201308/08 Inactive hydrocodone 10 mg-acetaminophen 325 mg tablet RxNorm: 547325 1 or 2 Tablet(s) PO Q6 PRN limit 6 per day 06/26/20132013 Inactive (Appended: Controlled substance eRx refill - RxReferenceNumber: [id number]|1|0|1) trazodone 100 mg tablet RxNorm: 031436 Tablet(s) PO TAKE 2 TABLETS BY MOUTH EVERY NIGHT AT BEDTIME 06/26/2013 11/05/2016 Inactive pantoprazole 40 mg tablet,delayed release RxNorm: 846307 Tablet(s) PO TAKE 1 TABLET BY MOUTH EVERY DAY 06/20/201306/05 Inactive prednisone 10 mg tablets in a dose pack RxNorm: 643913 Tablet(s) PO 6-5-4-3-2-1 06/13/2013 06/12/2013 Inactive prednisone 10 mg tablets in a dose pack RxNorm: 438814 Tablet(s) PO UD 6-5-4-3-2- 1 06/13/2013 06/18/2013 Inactive Silvadene 1 % topical cream RxNorm: 949685 1 TOP daily apply thin layer to left knee daily 06/12/2013 06/18/2013 Inactive metoprolol tartrate 25 mg tablet RxNorm: 718439 1/2 Tablet(s) PO BID TAKE 1/2 TABLET BY MOUTH TWICE DAILY 05/19/2013 Inactive Lipitor 20 mg tablet RxNorm: 033179 1 Tablet(s) PO daily 201203/11/2014 Inactive TAKE ONE TABLET BY MOUTH EVERY NIGHT AT BEDTIME Vitamin B-12 1,000 mcg/mL injection solution RxNorm: 923890 1 Milliliter(s) Inj 05/10/2013 05/10/2013 Inactive hydrocodone 10 mg-acetaminophen 325 mg tablet RxNorm: 729049 1 or 2 Tablet(s) PO Q6 PRN limit 6 per day 03/16/2013 No Stop Date Active (Appended: Controlled substance eRx refill - RxReferenceNumber: [id number]|1|0|1) Seroquel 100 mg tablet RxNorm: 865018 1 Tablet(s) PO BID 201203/10/2014 Inactive TAKE 1 TABLET BY MOUTH TWICE DAILY Effexor XR 150 mg capsule,extended release RxNorm: 188428 1 Capsule(s) PO BID 03/16/2013 02/28/2014 Inactive TAKE 1 CAPSULE BY MOUTH TWICE DAILY fluconazole 150 mg tablet RxNorm: 629438 1 Tablet(s) PO daily 03/06/2013 03/12/2013 Inactive Kenalog 40 mg/mL Susp for Injection RxNorm: 6915267 Milliliter(s) Inj 03/06/2013 03/06/2013 Inactive Ventolin HFA 90 mcg/actuation Aerosol Inhaler RxNorm: 7616191 1 or 2 Puff(s) INH Q6 PRN 02/20/2013 03/16/2014 Inactive cyanocobalamin (vitamin B-12) 1,000 mcg/mL Injection RxNorm: 682091 Milliliter(s) Inj 02/20/2013 02/20/2013 Inactive Valium 10 mg tablet RxNorm: 802799 1 Tablet(s) PO Q8 PRN 01/3102/24/2014 Inactive Kenalog 40 mg/mL Susp for Injection RxNorm: 8298152 Milliliter(s) Inj 12/26/2012 12/26/2012 Inactive cyanocobalamin (vitamin B-12) 1,000 mcg/mL Injection RxNorm: 678257 Milliliter(s) Inj 12/21/2012 12/21/2012 Inactive hydrocodone 10 mg-acetaminophen 325 mg tablet RxNorm: 8075077 1 or 2 Tablet(s) PO Q6 PRN limit 6 per day 11/25/20122012 Inactive (Appended: Controlled substance eRx refill - RxReferenceNumber: [id number]|1|0|1) diazepam 10 mg tablet RxNorm: 765584 1 Tablet(s) PO TID PRN 08/15/2013 Inactive TAKE 1 TABLET BY MOUTH THREE TIMES DAILY NEEDED (Appended: Controlled substance eRx refill - RxReferenceNumber: [id number]|1|0|1) diazepam 10 mg tablet RxNorm: 773016 Tablet(s) PO TAKE 1 TABLET BY MOUTH THREE TIMES DAILY NEEDED 11/21/20122013 Inactive (Appended: Controlled substance eRx refill - RxReferenceNumber: [id number]|1|0|1) Vitamin B-12 1,000 mcg/mL Injection RxNorm: 199873 1 Milliliter(s) Inj 11/16/2012 11/16/2012 Inactive hydrocodone 10 mg-acetaminophen 325 mg tablet RxNorm: 6495192 1 or 2 Tablet(s) PO Q6 PRN limit 6 per day 10/24/20122012 Inactive (Appended: Controlled substance eRx refill - RxReferenceNumber: [id number]|1|0|1) hydrocodone 10 mg-acetaminophen 325 mg tablet RxNorm: 3394123 Tablet(s) PO limit 5x days 10/24/2012 10/23/2012 Inactive (Appended: Controlled substance eRx refill - RxReferenceNumber: [id number]|1|0|1) Savella 100 mg tablet RxNorm: 973076 Tablet(s) PO TAKE 1 TABLET BY MOUTH DAILY 10/14/2012 12/05/2014 Inactive Tubersol 5 tub. unit/0.1 mL Intradermal RxNorm: 586855 Milliliter(s) IDrm 09/26/2012 09/26/2012 Inactive hydrocodone 10 mg-acetaminophen 325 mg tablet RxNorm: 5911036 1 Tablet(s) PO Q4 PRN q 4 hr prn limit 5 per day 09/19/2012 No Stop Date Active (Appended: Controlled substance eRx refill - RxReferenceNumber: [id number]|1|0|1) hydrocodone 10 mg-acetaminophen 325 mg tablet RxNorm: 0362421 Tablet(s) PO TAKE 1 TABLET BY MOUTH FOUR TIMES DAILY 09/16/2012 10/23/2012 Inactive (Appended: Controlled substance eRx refill - RxReferenceNumber: [id number]|1|0|1) cyclobenzaprine 10 mg tablet RxNorm: 675547 Tablet(s) PO TAKE ONE TABLET BY MOUTH THREE TIMES DAILY 09/16/2012 09/25/2013 Inactive hydrocodone 10 mg-acetaminophen 325 mg tablet RxNorm: 4627278 1 Tablet(s) PO Q4 PRN q 4 hr prn limit 5 per day 09/14/2012 09/19/2012 Inactive (Appended: Controlled substance eRx refill - RxReferenceNumber: [id number]|1|0|1) cyanocobalamin (vitamin B-12) 1,000 mcg/mL Injection RxNorm: 718857 1 Milliliter(s ) Inj 09/12/2012 09/12/2012 Inactive cyclobenzaprine 10 mg tablet RxNorm: 713257 Tablet(s) PO TAKE ONE TABLET BY MOUTH THREE TIMES DAILY 09/02/2012 09/15/2012 Inactive hydrocodone 10 mg-acetaminophen 325 mg tablet RxNorm: 1108270 1 Tablet(s) PO QID TAKE 1 TABLET BY MOUTH FOUR TIMES DAILY 08/23/2012 09/13/2012 Inactive (Appended: Controlled substance eRx refill - RxReferenceNumber: [id number]|1|0|1) Kenalog 40 mg/mL Susp for Injection RxNorm: 6921585 1 Milliliter(s) Inj 08/11/2012 08/11/2012 Inactive Vitamin B-12 1,000 mcg/mL Injection RxNorm: 727607 1 Milliliter(s) Inj 08/11/2012 08/11/2012 Inactive Zithromax 250 mg tablet RxNorm: 863323 Tablet(s) PO 07/21/2012 09/14/2012 Inactive please give z lauro cefdinir 300 mg capsule RxNorm: 613122 1 Capsule(s) PO BID 07/20/2012 Inactive cefdinir 300 mg capsule RxNorm: 011427 1 Capsule(s) PO BID 07/27/2012 Inactive diazepam 10 mg tablet RxNorm: 312074 1 Tablet(s) PO TID PRN 12/201211/22/2012 Inactive TAKE 1 TABLET BY MOUTH THREE TIMES DAILY NEEDED (Appended: Controlled substance eRx refill - RxReferenceNumber: [id number]|1|0|1) Vitamin B-12 1,000 mcg/mL Injection RxNorm: 741916 1 Milliliter(s) Inj 07/13/2012 07/13/2012 Inactive pantoprazole 40 mg tablet,delayed release RxNorm: 153116 1 Tablet(s) PO daily 06/14/2012 06/13/2012 Inactive pantoprazole 40 mg tablet,delayed release RxNorm: 262987 1 Tablet(s) PO daily 06/14/2012 06/19/2013 Inactive trazodone 100 mg tablet RxNorm: 358413 Tablet(s) PO TAKE 2 TABLETS BY MOUTH EVERY NIGHT AT BEDTIME 06/06/2012 11/05/2016 Inactive hydrocodone 10 mg-acetaminophen 325 mg tablet RxNorm: 5384940 Tablet(s) PO TAKE 1 TABLET BY MOUTH FOUR TIMES DAILY 05/24/2012 08/23/2012 Inactive (Appended: Controlled substance eRx refill - RxReferenceNumber: [id number]|1|0|1) Symbicort 160 mcg-4.5 mcg/actuation HFA Aerosol Inhaler RxNorm: 5985489 1 INH daily 05/24/2012 05/23/2012 Inactive this is an increase in dosing Symbicort 160 mcg-4.5 mcg/actuation HFA Aerosol Inhaler RxNorm: 6167817 1 INH daily 05/24/2012 06/17/2013 Inactive this is an increase in dosing Ventolin HFA 90 mcg/actuation Aerosol Inhaler RxNorm: 267511 1 or 2 Puff(s) INH Q6 PRN 05/24/2012 05/23/2012 Inactive Ventolin HFA 90 mcg/actuation Aerosol Inhaler RxNorm: 294225 1 or 2 Puff(s) INH Q6 PRN 05/24/2012 02/19/2013 Inactive metoprolol tartrate 25 mg tablet RxNorm: 187281 Tablet(s) PO TAKE 1/2 TABLET BY MOUTH TWICE DAILY 05/24/2012 05/18/2013 Inactive hydrocodone-acetaminophen 10 mg-325 mg tablet RxNorm: 6183472 Tablet(s) PO TAKE 1 TABLET BY MOUTH FOUR TIMES DAILY 05/17/2012 05/17/2012 Inactive (Appended: Controlled substance eRx refill - RxReferenceNumber: [id number]|1|0|1) diazepam 10 mg tablet RxNorm: 764444 Tablet(s) PO 05/03/2012 07/13/2012 Inactive TAKE 1 TABLET BY MOUTH THREE TIMES DAILY NEEDED (Appended: Controlled substance eRx refill - RxReferenceNumber: [id number]|1|0|1) metoprolol tartrate 25 mg tablet RxNorm: 230615 Tablet(s) PO 11/05/2016 Inactive TAKE 1/2 TABLET BY MOUTH TWICE DAILY hydrocodone-acetaminophen 10 mg-325 mg tablet RxNorm: 3241993 Tablet(s) PO 04/11/2012 05/17/2012 Inactive TAKE 1 TABLET BY MOUTH FOUR TIMES DAILY (Appended: Controlled substance eRx refill - RxReferenceNumber: [id number]|1|0|1) ProAir HFA 90 mcg/actuation Aerosol Inhaler RxNorm: 649350 2 INH Q4 PRN 04/05/2012 04/29/2013 Inactive Symbicort 80 mcg-4.5 mcg/actuation HFA Aerosol Inhaler RxNorm: 1388394 2 INH BID 04/05/2012 04/04/2012 Inactive Symbicort 80 mcg-4.5 mcg/actuation HFA Aerosol Inhaler RxNorm: 5719101 2 INH BID 04/05/2012 05/23/2012 Inactive ProAir HFA 90 mcg/actuation Aerosol Inhaler RxNorm: 096802 2 INH Q4 PRN 04/05/2012 04/04/2012 Inactive diazepam 10 mg tablet RxNorm: 196237 Tablet(s) PO 03/17/2012 05/03/2012 Inactive TAKE 1 TABLET BY MOUTH THREE TIMES DAILY NEEDED (Appended: Controlled substance eRx refill - RxReferenceNumber: [id number]|1|0|1) Effexor XR 150 mg capsule,extended release RxNorm: 999571 Capsule(s) PO 03/13/2012 03/15/2013 Inactive TAKE 1 CAPSULE BY MOUTH TWICE DAILY fluconazole 150 mg tablet RxNorm: 900377 1 Tablet(s) PO daily 03/11/2012 03/17/2012 Inactive Lipitor 20 mg tablet RxNorm: 306150 Tablet(s) PO 02/25/2012 03/20/2013 Inactive TAKE ONE TABLET BY MOUTH EVERY NIGHT AT BEDTIME Seroquel 100 mg tablet RxNorm: 187164 1 Tablet(s) PO BID 201102/18/2013 Inactive TAKE 1 TABLET BY MOUTH TWICE DAILY hydrocodone-acetaminophen 10 mg-325 mg tablet RxNorm: 5847791 Tablet(s) PO 02/25/2012 04/11/2012 Inactive TAKE 1 TABLET BY MOUTH FOUR TIMES DAILY . (Appended : Controlled substance eRx refill - RxReferenceNumber: [id number]|1|0|1) Seroquel 100 mg tablet RxNorm: 462072 1 Tablet(s) PO BID 201102/24/2012 Inactive TAKE 1 TABLET BY MOUTH TWICE DAILY Nexium 40 mg capsule,delayed release RxNorm: 065242 1 Capsule(s) PO daily 02/16/2012 06/13/2012 Inactive Effexor XR 150 mg capsule,extended release RxNorm: 915519 Capsule(s) PO 01/14/2012 11/05/2016 Inactive TAKE 1 CAPSULE BY MOUTH TWICE DAILY Kenalog 40 mg/mL Susp for Injection RxNorm: 4508135 1 Milliliter(s) Inj 01/13/2012 01/13/2012 Inactive Vitamin B-12 1,000 mcg/mL Injection RxNorm: 158694 Milliliter(s) Inj 12/21/2011 12/21/2011 Inactive hydrocodone-acetaminophen 10 mg-325 mg tablet RxNorm: 4968925 Tablet(s) PO 12/15/2011 02/25/2012 Inactive TAKE 1 TABLET BY MOUTH FOUR TIMES DAILY (Appended: Controlled substance eRx refill - RxReferenceNumber: [id number]|1|0|1) diazepam 10 mg tablet RxNorm: 836784 Tablet(s) PO 12/15/2011 03/17/2012 Inactive TAKE 1 TABLET BY MOUTH THREE TIMES DAILY NEEDED (Appended: Controlled substance eRx refill - RxReferenceNumber: [id number]|1|0|1) diazepam 10 mg Tab RxNorm: 835764 1 Tablet(s) PO daily 201112/15/2011 Inactive TAKE 1 TABLET BY MOUTH THREE TIMES DAILY (Appended: Controlled substance eRx refill - RxReferenceNumber: [id number]|1|0|1) hydrocodone-acetaminophen 10 mg-325 mg Tab RxNorm: 8652925 1 Tablet(s) PO QID 12/14/2011 12/15/2011 Inactive TAKE 1 TABLET BY MOUTH FOUR TIMES DAILY (Appended: Controlled substance eRx refill - RxReferenceNumber: [id number]|1|0|1) Seroquel 100 mg tablet RxNorm: 904216 Tablet(s) PO 11/27/2011 03/15/2013 Inactive TAKE 1 TABLET BY MOUTH TWICE DAILY hydrocodone-acetaminophen 10 mg-325 mg Tab RxNorm: 6735246 1 Tablet(s) PO QID 11/27/2011 12/13/2011 Inactive TAKE 1 TABLET BY MOUTH FOUR TIMES DAILY (Appended: Controlled substance eRx refill - RxReferenceNumber: [id number]|1|0|1) Seroquel 100 mg Tab RxNorm: 115883 1 Tablet(s) PO BID 201111/26/2011 Inactive Seroquel 100 mg tablet RxNorm: 558169 Tablet(s) PO 11/27/2011 02/16/2012 Inactive TAKE 1 TABLET BY MOUTH TWICE DAILY Nexium 40 mg capsule,delayed release RxNorm: 272279 1 Capsule(s) PO daily 11/16/2011 02/15/2012 Inactive cyanocobalamin (vitamin B-12) 1,000 mcg/mL Injection RxNorm: 357231 1 Milliliter(s ) Inj 10/30/2011 10/30/2011 Inactive hydrocodone-acetaminophen 10 mg-325 mg Tab RxNorm: 9541401 1 Tablet(s) PO QID 10/13/2011 11/23/2011 Inactive TAKE 1 TABLET BY MOUTH FOUR TIMES DAILY (Appended: Controlled substance eRx refill - RxReferenceNumber: [id number]|1|0|1) Effexor XR 150 mg capsule,extended release RxNorm: 278077 1 Capsule(s) PO BID 10/12/2011 01/09/2012 Inactive Fish Oil 1,000 mg Cap RxNorm: 1 Capsule(s) PO QID 10/02/2011 No Stop Date Active Vitamin B-12 1,000 mcg/mL Injection RxNorm: 716279 Milliliter(s) Inj 10/02/2011 10/02/2011 Inactive Kenalog 40 mg/mL Susp for Injection RxNorm: 8686059 Milliliter(s) Inj 10/02/2011 10/02/2011 Inactive diazepam 10 mg Tab RxNorm: 009076 1 Tablet(s) PO daily 201112/13/2011 Inactive TAKE 1 TABLET BY MOUTH THREE TIMES DAILY (Appended: Controlled substance eRx refill - RxReferenceNumber: [id number]|1|0|1) Vitamin B-12 1,000 mcg/mL Injection RxNorm: 985104 Milliliter(s) Inj 09/01/2011 09/01/2011 Inactive hydrocodone-acetaminophen 10 mg-325 mg Tab RxNorm: 1875934 1 Tablet(s) PO QID 08/25/2011 10/05/2011 Inactive TAKE 1 TABLET BY MOUTH FOUR TIMES DAILY (Appended: Controlled substance eRx refill - RxReferenceNumber: [id number]|1|0|1) diazepam 10 mg Tab RxNorm: 469199 Tablet(s) PO 08/10/2011 No Stop Date Active TAKE 1 TABLET BY MOUTH THREE TIMES DAILY (Appended: Controlled substance eRx refill - RxReferenceNumber: [id number]|1|0|1) Vitamin B-12 1,000 mcg/mL Injection RxNorm: 102924 Milliliter(s) Inj 08/03/2011 08/03/2011 Inactive fluticasone 50 mcg/actuation Nasal [place], Susp RxNorm: 3225799 2 [place] NASAL BID 07/27/2011 08/19/2012 Inactive hydrocodone-acetaminophen 10 mg-325 mg Tab RxNorm: 1627616 Tablet(s) PO 07/09/2011 08/24/2011 Inactive TAKE 1 TABLET BY MOUTH FOUR TIMES DAILY (Appended: Controlled substance eRx refill - RxReferenceNumber: [id number]|1|0|1) diazepam 10 mg Tab RxNorm: 388625 Tablet(s) PO 07/09/2011 08/09/2011 Inactive TAKE 1 TABLET BY MOUTH THREE TIMES DAILY (Appended: Controlled substance eRx refill - RxReferenceNumber: [id number]|1|0|1) diazepam 10 mg Tab RxNorm: 626092 Tablet(s) PO 07/08/2011 07/08/2011 Inactive TAKE 1 TABLET BY MOUTH THREE TIMES DAILY (Appended: Controlled substance eRx refill - RxReferenceNumber: [id number]|1|0|1) hydrocodone-acetaminophen 10 mg-325 mg Tab RxNorm: 2603389 Tablet(s) PO 07/08/2011 07/08/2011 Inactive TAKE 1 TABLET BY MOUTH FOUR TIMES DAILY (Appended: Controlled substance eRx refill - RxReferenceNumber: [id number]|1|0|1) cyclobenzaprine 10 mg tablet RxNorm: 924676 Tablet(s) PO 201109/01/2012 Inactive TAKE ONE TABLET BY MOUTH THREE TIMES DAILY Lipitor 40 mg Tab RxNorm: 425743 1 Tablet(s) PO daily 201106/16/2011 Inactive Lipitor 40 mg Tab RxNorm: 844163 1 Tablet(s) PO daily 201106/10/2012 Inactive trazodone 100 mg tablet RxNorm: 349061 Tablet(s) PO 06/02/2011 06/05/2012 Inactive TAKE 2 TABLETS BY MOUTH EVERY NIGHT AT BEDTIME diazepam 10 mg Tab RxNorm: 545979 Tablet(s) PO 05/28/2011 05/29/2011 Inactive TAKE 1 TABLET BY MOUTH THREE TIMES DAILY (Appended: Controlled substance eRx refill - RxReferenceNumber: [id number]|1|0|1) diazepam 10 mg Tab RxNorm: 348749 Tablet(s) PO 05/28/2011 07/08/2011 Inactive TAKE 1 TABLET BY MOUTH THREE TIMES DAILY (Appended: Controlled substance eRx refill - RxReferenceNumber: [id number]|1|0|1) hydrocodone-acetaminophen 10 mg-325 mg Tab RxNorm: 6360120 1 Tablet(s) PO QID 05/26/2011 07/08/2011 Inactive metoprolol tartrate 25 mg tablet RxNorm: 106305 Tablet(s) PO 04/10/2012 Inactive TAKE 1/2 TABLET BY MOUTH TWICE DAILY Savella 100 mg tablet RxNorm: 864008 Tablet(s) PO 05/14/2011 10/13/2012 Inactive TAKE 1 TABLET BY MOUTH DAILY Influenza Virus Vaccine 0.5 mL RxNorm: IM 02/23/2011 02/23/2011 Inactive B12 1000 mcg RxNorm: IM 02/23/20112010 Inactive hydrocodone-acetaminophen 10 mg-325 mg Tab RxNorm: 2036162 1 Tablet(s) PO QID 01/29/2011 01/28/2011 Inactive Restasis 0.05 % eye drops in a dropperette RxNorm: 009218 1 OPH BID No Start Date Active vitamin A-vit C-vit E-zinc-Se Tab RxNorm: 1 Tablet(s) PO daily No Start Date Active garlic extract Oral RxNorm: Oral No Start Date Active Acidophilus Tab RxNorm : 2 Tablet(s) PO QHS No Start Date Active Cranberry Concentrate Cap RxNorm: 1 Capsule(s) PO BID No Start Date Active Xopenex 1.25 mg/3 mL Neb Solution RxNorm: 536061 1 Milliliter(s) INH TID No Start Date Active niacin ER 500 mg Tab RxNorm: 290183 2 Tablet(s) PO HS No Start Date Active SenokotXTRA 17.2 mg Tab RxNorm: 7698466 Oral No Start Date Active Lotemax 0.5 % eye ointment RxNorm: 7526561 1 OPH QHS No Start Date Active Gaviscon Extra Strength Oral RxNorm: Oral No Start Date Active melatonin 3 mg Tab RxNorm: 490628 1 Tablet(s) PO QHS No Start Date Active Voltaren 1 % Topical Gel RxNorm: 985231 4 Gram(s) TOP QID No Start Date Active Vitamin D 1,000 unit Cap RxNorm: 166806 1 Capsule(s) PO QHS No Start Date Active Mucinex DM 30 mg-600 mg 12 hr Tab RxNorm: 2156529 1 Tablet(s) PO BID No Start Date Active calcium citrate 200 mg (950 mg) Tab RxNorm: 114719 1 Tablet(s) PO QID No Start Date Active valerian 530 mg Cap RxNorm: 2 Capsule(s) PO QHS No Start Date Active Anucort-HC 25 mg Suppository RxNorm: 8394963 1 Suppository RTL QDAY PRN No Start Date 01/14/2014 Inactive Nexium 40 mg Capsule, delayed release RxNorm: 561265 1 Capsule(s) PO daily No Start Date 11/15/2011 Inactive Lipitor 20 mg tablet RxNorm: 069312 1 Tablet(s) PO QHS No Start Date 02/25/2012 Inactive mupirocin 2 % topical ointment RxNorm: 577700 1 Application TOP PRN No Start Date 10/16/2013 Inactive fluconazole 150 mg tablet RxNorm: 744900 1 Tablet(s) PO daily No Start Date 03/10/2012 Inactive Fish Oil 1,000 mg Cap RxNorm: 1 Capsule(s) PO TID No Start Date 10/01/2011 Inactive hydrocodone-acetaminophen 10 mg-325 mg Tab RxNorm: 9504595 1 Tablet(s) PO QID No Start Date 05/25/2011 Inactive Zithromax 250 mg tablet RxNorm: 782251 Tablet(s) PO No Start Date 07/20/2012 Inactive please give z lauro prednisone 10 mg tablet RxNorm: 742349 Tablet(s) PO taper. 6-5-4-3-2-1 # 21 No Start Date 09/16/2017 Inactive fluticasone 50 mcg/actuation Nasal [place], Susp RxNorm: 9349600 2 [place] NASAL BID No Start Date 07/26/2011 Inactive Seroquel 100 mg Tab RxNorm: 408323 1 Tablet(s) PO BID No Start Date 11/26/2011 Inactive nystatin 100,000 unit/gram topical powder RxNorm: 291828 1 Application TOP QID until healed No Start Date 10/26/2016 Inactive Savella 100 mg Tab RxNorm: 280769 1 Tablet(s) PO daily No Start Date 05/13/2011 Inactive cyclobenzaprine 10 mg Tab RxNorm: 404805 1 Tablet(s) PO TID No Start Date 07/05/2011 Inactive metoprolol tartrate 25 mg Tab RxNorm: 489465 1/2 Tablet(s) PO BID No Start Date 05/25/2011 Inactive trazodone 100 mg Tab RxNorm: 143288 2 Tablet(s) PO QHS No Start Date 06/01/2011 Inactive Zithromax Z-Lauro 250 mg tablet RxNorm: 837919 1 Tablet(s) PO UD No Start Date 07/11/2015 Inactive z lauro Effexor XR 150 mg 24 hr Cap RxNorm: 539735 1 Capsule(s) PO BID No Start Date 10/11/2011 Inactive diazepam 10 mg Tab RxNorm: 649052 1 Tablet(s) PO TID No Start Date 05/28/2011 Inactive tramadol 50 mg tablet RxNorm: 052669 1-2 Tablet(s) PO Q6 as needed No Start Date 05/28/2015 Inactive Medication Administered Medication Codes Instructions Start Date Status cyanocobalamin (vit B-12) 1,000 mcg/mL injection solution RxNorm: 742939 1Milliliter 03/10/2018 No longer Active cyanocobalamin (vit B-12) 1,000 mcg/mL injection solution RxNorm: 636611 1Milliliter 10/19/2017 No longer Active cyanocobalamin (vit B-12) 1,000 mcg/mL injection solution RxNorm: 017652 1Milliliter 08/19/2017 No longer Active cyanocobalamin (vit B-12) 1,000 mcg/mL injection solution RxNorm: 038113 1Milliliter 07/06/2017 No longer Active cyanocobalamin (vit B-12) 1,000 mcg/mL injection solution RxNorm: 568928 1Milliliter 04/27/2017 No longer Active cyanocobalamin (vit B-12) 1,000 mcg/mL injection solution RxNorm: 266051 1Milliliter 11/17/2016 No longer Active cyanocobalamin (vit B-12) 1,000 mcg/mL injection solution RxNorm: 958976 1Milliliter 10/12/2016 No longer Active cyanocobalamin (vit B-12) 1,000 mcg/mL injection solution RxNorm: 056680 1Milliliter 09/11/2016 No longer Active cyanocobalamin (vit B-12) 1,000 mcg/mL injection solution RxNorm: 922813 Milliliter 07/03/2016 No longer Active cyanocobalamin (vit B-12) 1,000 mcg/mL injection solution RxNorm: 618069 1Milliliter 04/20/2016 No longer Active cyanocobalamin (vit B-12) 1,000 mcg/mL injection solution RxNorm: 937199 Milliliter 02/13/2016 No longer Active cyanocobalamin (vit B-12) 1,000 mcg/mL injection solution RxNorm: 562560 1Milliliter 12/02/2015 No longer Active cyanocobalamin (vit B-12) 1,000 mcg/mL injection solution RxNorm: 409877 1Milliliter 10/29/2015 No longer Active cyanocobalamin (vit B-12) 1,000 mcg/mL injection solution RxNorm: 510486 Milliliter 06/10/2015 No longer Active cyanocobalamin (vit B-12) 1,000 mcg/mL injection solution RxNorm: 316612 Milliliter 02/15/2014 No longer Active cyanocobalamin (vit B-12) 1,000 mcg/mL injection kit RxNorm : 840124 1Milliliter 01/15/2014 No longer Active Kenalog 40 mg/mL suspension for injection RxNorm: 2644640 1Milliliter 01/15/2014 No longer Active cyanocobalamin (vit B-12) 1,000 mcg/mL injection solution RxNorm: 809864 1Milliliter 12/04/2013 No longer Active Vitamin B-12 1,000 mcg/mL injection solution RxNorm: 410341 Milliliter 07/24/2013 No longer Active Vitamin B-12 1,000 mcg/mL injection solution RxNorm: 836627 1Milliliter 05/10/2013 No longer Active Kenalog 40 mg/mL Susp for Injection RxNorm: 2885198 Milliliter 03/06/2013 No longer Active cyanocobalamin (vitamin B-12) 1,000 mcg/mL Injection RxNorm : 541774 Milliliter 02/20/2013 No longer Active Kenalog 40 mg/mL Susp for Injection RxNorm: 0988658 Milliliter 12/26/2012 No longer Active cyanocobalamin (vitamin B-12) 1,000 mcg/mL Injection RxNorm : 326445 Milliliter 12/21/2012 No longer Active Vitamin B-12 1,000 mcg/mL Injection RxNorm: 937715 1Milliliter 11/16/2012 No longer Active Tubersol 5 tub. unit/0.1 mL Intradermal RxNorm: 444807 Milliliter 09/26/2012 No longer Active cyanocobalamin (vitamin B-12) 1,000 mcg/mL Injection RxNorm : 284341 1Milliliter 09/12/2012 No longer Active Kenalog 40 mg/mL Susp for Injection RxNorm: 8748230 1Milliliter 08/11/2012 No longer Active Vitamin B-12 1,000 mcg/mL Injection RxNorm: 988558 1Milliliter 08/11/2012 No longer Active Vitamin B-12 1,000 mcg/mL Injection RxNorm: 128414 1Milliliter 07/13/2012 No longer Active Kenalog 40 mg/mL Susp for Injection RxNorm: 1768977 1Milliliter 01/13/2012 No longer Active Vitamin B-12 1,000 mcg/mL Injection RxNorm: 560345 Milliliter 12/21/2011 No longer Active cyanocobalamin (vitamin B-12) 1,000 mcg/mL Injection RxNorm : 123869 1Milliliter 10/30/2011 No longer Active Vitamin B-12 1,000 mcg/mL Injection RxNorm: 952870 Milliliter 10/02/2011 No longer Active Kenalog 40 mg/mL Susp for Injection RxNorm: 1423367 Milliliter 10/02/2011 No longer Active Vitamin B-12 1,000 mcg/mL Injection RxNorm: 679249 Milliliter 09/01/2011 No longer Active Vitamin B-12 1,000 mcg/mL Injection RxNorm: 443413 Milliliter 08/03/2011 No longer Active B12 1000 [...] 2011 Weight gain ICD-9: 783.1 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 Reason For Visit Reason [...] Item Item Code Result Date Comp Metabolic Ezd523 NA 138 mEq/L 09/20/2017 Comp Metabolic Asq679 K 4.1 mEq/L 09/20/2017 Comp Metabolic Ecb103 CL 101 mEq/L 09/20/2017 Comp Metabolic Kuy652 CO2 25.0 mEq/L 09/20/2017 Comp Metabolic Mzx481 ANION GAP 16 09/20/2017 Comp Metabolic Lig241 GLUCOSE 105 mg/dL 09/20/2017 Comp Metabolic Fxx255 Creat 0.8 mg/dL 09/20/2017 Comp Metabolic Wgj715 eGFR 86 ml/min/1.73m2 09/20/2017 Comp Metabolic Nzo551 BUN 24 mg/dL 09/20/2017 Comp Metabolic Pwa415 B/C Ratio 31.6 Ratio 09/20/2017 Comp Metabolic Lia184 CALCIUM 10.0 mg/dL 09/20/2017 Comp Metabolic Zxx831 ALK PHOS 63 U/L 09/20/2017 Comp Metabolic Kqu562 AST(SGOT) 28 U/L 09/20/2017 Comp Metabolic Sdr155 ALT(SGPT) 34 U/L 09/20/2017 Comp Metabolic Zhr538 BILI T 0.3 mg/dL 09/20/2017 Comp Metabolic Aiv500 ALBUMIN 4.8 g/dL 09/20/2017 Comp Metabolic Xap553 TPRO 7.2 g/dL 09/20/2017 Comp Metabolic Fmo823 GLOB 2.4 g/dL 09/20/2017 Comp Metabolic Xmq710 A/G Ratio 2.0 Ratio 09/20/2017 Comp Metabolic Szc544 Osmo 280 mOsmo 09/20/2017 Urine Culture Ucult Preliminary NO Growth Day 1 09/20/2017 Urine Culture Ucult Complete NO Growth Day 2 09/20/2017 Vitamin D 25 Oh [id number] VITAMIN D, 25 HYDROXY 46.43 ng/mL Comp Metabolic Ags794 NA 143 mEq/L 08/25/2017 Comp Metabolic Xui622 K 4.1 mEq/L 08/25/2017 Comp Metabolic Bqp934 CL 102 mEq/L 08/25/2017 Comp Metabolic Vyv333 CO2 33.0 mEq/L 08/25/2017 Comp Metabolic Deg234 ANION GAP 12 08/25/2017 Comp Metabolic Urr243 GLUCOSE 99 mg/dL 08/25/2017 Comp Metabolic Mce046 Creat 0.8 mg/dL 08/25/2017 Comp Metabolic Mct910 eGFR 86 ml/min/1.73m2 08/25/2017 Comp Metabolic Tam086 BUN 19 mg/dL 08/25/2017 Comp Metabolic Fyw862 B/C Ratio 25.0 Ratio 08/25/2017 Comp Metabolic Msb263 CALCIUM 9.5 mg/dL 08/25/2017 Comp Metabolic Hhs209 ALK PHOS 63 U/L 08/25/2017 Comp Metabolic Lcq642 AST(SGOT) 17 U/L 08/25/2017 Comp Metabolic Teg595 ALT(SGPT) 20 U/L 08/25/2017 Comp Metabolic Prq615 BILI T 0.3 mg/dL 08/25/2017 Comp Metabolic Ftk852 ALBUMIN 4.5 g/dL 08/25/2017 Comp Metabolic Fxg894 TPRO 6.6 g/dL 08/25/2017 Comp Metabolic Wbq393 GLOB 2.1 g/dL 08/25/2017 Comp Metabolic Cpy622 A/G Ratio 2.1 Ratio 08/25/2017 Comp Metabolic Xqr666 Osmo 287 mOsmo 08/25/2017 B12 Xaj426 B12 904.00 pg/ml 08/25/2017 Tsh Ord6 TSH [...] 103.4 fl 08/25/2017 Cbc With Differential Ord2 [place]% 7.5 % 08/25/2017 Cbc With Differential Ord2 [...] 3.65 K/ul 08/25/2017 Cbc With Differential Ord2 [place] ABS# 0.6 K/ul 08/25/2017 Cbc With Differential Ord2 Eos ABS# 0.1 K/ul 08/25/2017 Cbc With Differential Ord2 Baso ABS# 0.0 K/ul 08/25/2017 Tsh Ord6 hTSH II 1.18 uIU/mL 10/12/2016 Comp Metabolic Pns578 NA 139 mEq/L 10/12/2016 Comp Metabolic Rvr246 K 3.5 mEq/L 10/12/2016 Comp Metabolic Ojj518 CL 102 mEq/L 10/12/2016 Comp Metabolic Oad923 CO2 25.0 mEq/L 10/12/2016 Comp Metabolic Duz456 ANION GAP 16 10/12/2016 Comp Metabolic Tnx616 GLUCOSE 84 mg/dL 10/12/2016 Comp Metabolic Upv986 Creat 0.6 mg/dL 10/12/2016 Comp Metabolic Jox495 eGFR 105 ml/min/1.73m2 10/12/2016 Comp Metabolic Lay509 BUN 12 mg/dL 10/12/2016 Comp Metabolic Syv444 B/C Ratio 18.8 Ratio 10/12/2016 Comp Metabolic Ooy556 CALCIUM 9.2 mg/dL 10/12/2016 Comp Metabolic Wyl241 ALK PHOS 59 U/L 10/12/2016 Comp Metabolic Ubo455 AST(SGOT) 21 U/L 10/12/2016 Comp Metabolic Gwo448 ALT(SGPT) 27 U/L 10/12/2016 Comp Metabolic Bjp828 BILI T 0.2 mg/dL 10/12/2016 Comp Metabolic Ldb367 ALBUMIN 4.4 g/dL 10/12/2016 Comp Metabolic Nhx256 TPRO 6.7 g/dL 10/12/2016 Comp Metabolic Rjl164 GLOB 2.3 g/dL 10/12/2016 Comp Metabolic Mzm559 A/G Ratio 1.9 Ratio 10/12/2016 Comp Metabolic Xcv822 Osmo 276 mOsmo 10/12/2016 Cbc With Differential [...] 103.0 fl 10/12/2016 Cbc With Differential Ord2 [place]% 8.0 % 10/12/2016 Cbc With Differential Ord2 [...] 3.12 K/ul 10/12/2016 Cbc With Differential Ord2 [place] ABS# 0.8 K/ul 10/12/2016 Cbc With Differential Ord2 Eos ABS# 0.1 K/ul 10/12/2016 Cbc With Differential Ord2 Baso ABS# 0.0 K/ul 10/12/2016 Lipid Ord30 CHOL 194 mg/dL 10/12/2016 Lipid Ord30 HDL 76.0 mg/dl 10/12/2016 Lipid Ord30 TRIG 159 mg/dL 10/12/2016 Lipid Ord30 LDL 86 mg/dL 10/12/2016 Lipid Ord30 C/HDL 2.6 Ratio 10/12/2016 Comp Metabolic Zmd052 NA 139 mEq/L 09/11/2016 Comp Metabolic Bcf251 K 3.6 mEq/L 09/11/2016 Comp Metabolic Nsc811 CL 102 mEq/L 09/11/2016 Comp Metabolic Ydx650 CO2 26.0 mEq/L 09/11/2016 Comp Metabolic Vll015 ANION GAP 15 09/11/2016 Comp Metabolic Uqs433 GLUCOSE 90 mg/dL 09/11/2016 Comp Metabolic Qfj925 Creat 0.6 mg/dL 09/11/2016 Comp Metabolic Anv993 eGFR 111 ml/min/1.73m2 09/11/2016 Comp Metabolic Znf357 BUN 14 mg/dL 09/11/2016 Comp Metabolic Mom192 B/C Ratio 23.0 Ratio 09/11/2016 Comp Metabolic Mqp227 CALCIUM 9.0 mg/dL 09/11/2016 Comp Metabolic Luv157 ALK PHOS 56 U/L 09/11/2016 Comp Metabolic Slm762 AST(SGOT) 21 U/L 09/11/2016 Comp Metabolic Azc243 ALT(SGPT) 17 U/L 09/11/2016 Comp Metabolic Uym991 BILI T 0.2 mg/dL 09/11/2016 Comp Metabolic Vsz556 ALBUMIN 4.1 g/dL 09/11/2016 Comp Metabolic Bwv344 TPRO 6.5 g/dL 09/11/2016 Comp Metabolic Fjv902 GLOB 2.4 g/dL 09/11/2016 Comp Metabolic Lsj399 A/G Ratio 1.7 Ratio 09/11/2016 Comp Metabolic Gxf169 Osmo 278 mOsmo 09/11/2016 Tsh Ord6 hTSH [...] 33.0 pg 09/11/2016 Cbc With Differential Ord2 [place]% 8.6 % 09/11/2016 Cbc With Differential Ord2 [...] 3.35 K/ul 09/11/2016 Cbc With Differential Ord2 [place] ABS# 1.0 K/ul 09/11/2016 Cbc With Differential Ord2 Eos ABS# 0.1 K/ul 09/11/2016 Cbc With Differential Ord2 Baso ABS# 0.0 K/ul 09/11/2016 Lipid Ord30 CHOL 168 mg/dL 09/11/2016 Lipid Ord30 HDL 74.0 mg/dl 09/11/2016 Lipid Ord30 TRIG 167 mg/dL 09/11/2016 Lipid Ord30 LDL 61 mg/dL 09/11/2016 Lipid Ord30 C/HDL 2.3 Ratio 09/11/2016 B12 Lwd131 B12 474.00 pg/ml 09/11/2016 B12 Rwv501 B12 827.00 pg/ml 03/02/2016 Cbc With Differential [...] 34.0 pg 02/28/2016 Cbc With Differential Ord2 [place]% 5.4 % 02/28/2016 Cbc With Differential Ord2 [...] 2.08 K/ul 02/28/2016 Cbc With Differential Ord2 [place] ABS# 0.3 K/ul 02/28/2016 Cbc With Differential Ord2 Eos ABS# 0.1 K/ul 02/28/2016 Cbc With Differential Ord2 Baso ABS# 0.0 K/ul 02/28/2016 Sed Rate Ord21 ESR 5 mm/hr 02/28/2016 C-Reactive Protein Qnt Crqnt CRP 0.1 mg/dl 02/28/2016 Comp Metabolic Qxv397 NA 136 mEq/L 02/28/2016 Comp Metabolic Ske301 K 4.0 mEq/L 02/28/2016 Comp Metabolic Ebx241 CL 103 mEq/L 02/28/2016 Comp Metabolic Yfq176 CO2 27.0 mEq/L 02/28/2016 Comp Metabolic Olj088 ANION GAP 10 02/28/2016 Comp Metabolic Hio617 GLUCOSE 138 mg/dL 02/28/2016 Comp Metabolic Tfg556 Creat 0.6 mg/dL 02/28/2016 Comp Metabolic Pex022 eGFR 120 ml/min/1.73m2 02/28/2016 Comp Metabolic Abt132 BUN 15 mg/dL 02/28/2016 Comp Metabolic Vot835 B/C Ratio 26.3 Ratio 02/28/2016 Comp Metabolic Jir864 CALCIUM 8.8 mg/dL 02/28/2016 Comp Metabolic Vzu459 ALK PHOS 58 U/L 02/28/2016 Comp Metabolic Whr057 AST(SGOT) 21 U/L 02/28/2016 Comp Metabolic Jrn766 ALT(SGPT) 21 U/L 02/28/2016 Comp Metabolic Yja666 BILI T 0.2 mg/dL 02/28/2016 Comp Metabolic Gdz673 ALBUMIN 3.8 g/dL 02/28/2016 Comp Metabolic Xif634 TPRO 5.7 g/dL 02/28/2016 Comp Metabolic Hmf582 GLOB 1.9 g/dL 02/28/2016 Comp Metabolic Ehv407 A/G Ratio 2.0 Ratio 02/28/2016 Comp Metabolic Emy061 Osmo 275 mOsmo 02/28/2016 Tsh Ord6 hTSH II 1.25 uIU/mL 02/28/2016 B12 Hwr088 B12 >1500.00 pg/ml 01/11/2016 Vitamin D 25 Oh Dff5179 VITAMIN D, 25 HYDROXY 45.94 ng/mL Comp Metabolic Dpk125 NA 136 mEq/L 03/21/2015 Comp Metabolic Djr140 K 3.8 mEq/L 03/21/2015 Comp Metabolic Psl096 CL 101 mEq/L 03/21/2015 Comp Metabolic Jeo114 CO2 31.0 mEq/L 03/21/2015 Comp Metabolic Fmi434 ANION GAP 8 03/21/2015 Comp Metabolic Omu764 GLUCOSE 101 mg/dL 03/21/2015 Comp Metabolic Jxb055 Creat 0.7 mg/dL 03/21/2015 Comp Metabolic Ftx486 eGFR 94 ml/min/1.73m2 03/21/2015 Comp Metabolic Ntz016 BUN 13 mg/dL 03/21/2015 Comp Metabolic Ekr189 B/C Ratio 18.3 Ratio 03/21/2015 Comp Metabolic Ruy171 CALCIUM 9.3 mg/dL 03/21/2015 Comp Metabolic Hei827 ALK PHOS 58 U/L 03/21/2015 Comp Metabolic Clc284 AST(SGOT) 18 U/L 03/21/2015 Comp Metabolic Yub653 ALT(SGPT) 22 U/L 03/21/2015 Comp Metabolic Zyp630 BILI T 0.3 mg/dL 03/21/2015 Comp Metabolic Cwo706 ALBUMIN 4.4 g/dL 03/21/2015 Comp Metabolic Yxf886 TPRO 6.7 g/dL 03/21/2015 Comp Metabolic Rbn573 GLOB 2.3 g/dL 03/21/2015 Comp Metabolic Vnn359 A/G Ratio 1.9 Ratio 03/21/2015 Comp Metabolic Svg254 Osmo 272 mOsmo 03/21/2015 %Hba1C Sml552 % HbA1c 28608-2 5.4 % 03/21/2015 %Hba1C Jor592 Gluc Ave 108 mg/dL 03/21/2015 Cbc With [...] 1.32 uIU/mL 03/21/2015 URINALYSIS NONAUTO W/O SCOPE 24520 Specific [place] 1.025 DateTime(Free Text in Aprima) URINALYSIS NONAUTO W/O SCOPE 74440 PH 5.0 DateTime(Free Text in Aprima) URINALYSIS NONAUTO W/O SCOPE 79991 GLUCOSE NEG DateTime( Free Text in Aprima) URINALYSIS NONAUTO W/O SCOPE 33225 Protein NEG DateTime( Free Text in Aprima) URINALYSIS NONAUTO W/O SCOPE 73827 Blood NEG DateTime(Free Text in Aprima) URINALYSIS NONAUTO W/O SCOPE 01154 Bilirubin NEG DateTime(Free Text in Aprima) URINALYSIS NONAUTO W/O SCOPE 93646 Ketones NEG DateTime( Free Text in Aprima) URINALYSIS NONAUTO W/O SCOPE 79876 Urobilinogen NEG DateTime(Free Text in Aprima) URINALYSIS NONAUTO W/O SCOPE 14214 Nitrite NEG DateTime( Free Text in Aprima) URINALYSIS NONAUTO W/O SCOPE 30684 Leukocytes NEG DateTime(Free Text in Aprima) Review [...] General 1994 Musculoskeletal lower extremity Overall: normal E bulk and tone 03/17/2016 None Full Exam [...] developed 05/16/2013 None Full Exam - General 1995 [...] nourished 12/26/2012 None Full Exam - General 1995 Constitutional general appearance Overall: well developed 12/26/2012 [...] exam 05/26/2012 None Full Exam - General 1995 Cardiovascular auscultation of heart Overall: regular rate 05/26/2012 None Full Exam - General 1995 [...] time 10/02/2011 None Full Exam - General 1995 Psychiatric mood and affect Overall: normal mood and affect 10/02/2011 None Full Exam - General 1994 Respiratory auscultation Overall: breath sounds clear bilaterally 10/02/2011 None Full Exam - General 1994 Respiratory respiratory effort/rhythm Overall: no retractions 10/02/2011 None Full Exam - General 1995 Respiratory respiratory effort/rhythm Overall: normal rate 10/02/2011 [...] 1995 Ears/Nose/Throat oral cavity/pharynx/larynx Overall: no masses 08/03/2011 [...] Procedure Codes Date THER/PROPH/DIAG INJ SC/IM CPT-4: 91373 04/05/2018 VITAMIN B12 INJECTION CPT-4: J3420 04/05/2018 THER/PROPH/DIAG INJ SC/IM CPT-4: 81654 03/10/2018 VITAMIN B12 INJECTION CPT-4: J3420 03/10/2018 THER/PROPH/DIAG INJ SC/IM CPT-4: 26374 10/19/2017 VITAMIN B12 INJECTION CPT-4: J3420 10/19/2017 URINALYSIS NONAUTO W/O SCOPE CPT-4: 61456 09/17/2017 THER/PROPH/DIAG INJ SC/IM CPT-4: 13180 08/19/2017 VITAMIN B12 INJECTION CPT-4: J3420 08/19/2017 THER/PROPH/DIAG INJ SC/IM CPT-4: 99789 07/06/2017 VITAMIN B12 INJECTION CPT-4: J3420 07/06/2017 THER/PROPH/DIAG INJ SC/IM CPT-4: 48748 04/27/2017 VITAMIN B12 INJECTION CPT-4: J3420 04/27/2017 THER/PROPH/DIAG INJ SC/IM CPT-4: 87367 11/17/2016 VITAMIN B12 INJECTION CPT-4: J3420 11/17/2016 THER/PROPH/DIAG INJ SC/IM CPT-4: 65168 10/12/2016 VITAMIN B12 INJECTION CPT-4: J3420 10/12/2016 THER/PROPH/DIAG INJ SC/IM CPT-4: 87210 09/11/2016 VITAMIN B12 INJECTION CPT-4: J3420 09/11/2016 THER/PROPH/DIAG INJ SC/IM CPT-4: 80352 07/03/2016 VITAMIN B12 INJECTION CPT-4: J3420 07/03/2016 VITAMIN B12 INJECTION CPT-4: J3420 04/20/2016 THER/PROPH/DIAG INJ SC/IM CPT-4: 57932 04/20/2016 ADMIN INFLUENZA VIRUS VAC CPT-4: G0008 03/17/2016 IIV4 FLU VACC NO PRESERV ID Formatting Model/CDA Sections, Assigned to/Kathy Lopez SNOMED CT: [id number] CPT-4: [id number] 03/17/2016 THER/PROPH/DIAG INJ SC/IM CPT-4: 37261 02/13/2016 VITAMIN B12 INJECTION CPT-4: J3420 02/13/2016 URINALYSIS NONAUTO W/O SCOPE CPT-4: 84875 12/10/2015 THER/PROPH/DIAG INJ SC/IM CPT-4: 86295 12/02/2015 VITAMIN B12 INJECTION CPT-4: J3420 12/02/2015 PNEUMOCOCCAL VACC [address]: [id number] CPT-4: 44616 12/02/2015 IMMUNIZATION ADMIN CPT -4: 67314 12/02/2015 THER/PROPH/DIAG INJ SC/IM CPT-4: 61208 10/29/2015 VITAMIN B12 INJECTION CPT-4: J3420 10/29/2015 THER/PROPH/DIAG INJ SC/IM CPT-4: 31700 06/10/2015 VITAMIN B12 INJECTION CPT-4: J3420 06/10/2015 THER/PROPH/DIAG INJ SC/IM CPT-4: 76075 02/15/2014 VITAMIN B12 INJECTION CPT-4: J3420 02/15/2014 TRIAMCINOLONE ACET INJ NOS CPT-4: J3301 01/15/2014 VITAMIN B12 INJECTION CPT-4: J3420 01/15/2014 THER/PROPH/DIAG INJ SC/IM CPT-4: 92287 12/04/2013 VITAMIN B12 INJECTION CPT-4: J3420 12/04/2013 THER/PROPH/DIAG INJ SC/IM CPT-4: 20469 07/24/2013 VITAMIN B12 INJECTION CPT-4: J3420 07/24/2013 PRESCRIP TRANSMIT VIA ERX SY CPT-4: G8553 06/12/2013 VITAMIN B12 INJECTION CPT-4: J3420 05/10/2013 THER/PROPH/DIAG INJ SC/IM CPT-4: 49174 05/10/2013 TRIAMCINOLONE ACET INJ NOS CPT-4: J3301 03/06/2013 PRESCRIP TRANSMIT VIA ERX SY CPT-4: G8553 03/06/2013 ADMIN INFLUENZA VIRUS VAC CPT-4: G0008 02/20/2013 FLULAVAL VACC, 3 YRS & >, IM CPT-4: Q2036 02/20/2013 THER/PROPH/DIAG INJ SC/IM CPT-4: 37942 02/20/2013 VITAMIN B12 INJECTION CPT-4: J3420 02/20/2013 THER/PROPH/DIAG INJ SC/IM CPT-4: 41015 12/26/2012 TRIAMCINOLONE ACET INJ NOS CPT-4: J3301 12/26/2012 THER/PROPH/DIAG INJ SC/IM CPT-4: 05660 12/21/2012 VITAMIN B12 INJECTION CPT-4: J3420 12/21/2012 THER/PROPH/DIAG INJ SC/IM CPT-4: 50503 11/16/2012 VITAMIN B12 INJECTION CPT-4: J3420 11/16/2012 TB INTRADERMAL TEST (includes injection fee) CPT-4: 41322 09/26/2012 THER/PROPH/DIAG INJ SC/IM CPT-4: 56657 09/12/2012 VITAMIN B12 INJECTION CPT-4: J3420 09/12/2012 TRIAMCINOLONE ACET INJ NOS CPT-4: J3301 08/11/2012 VITAMIN B12 INJECTION CPT-4: J3420 08/11/2012 THER/PROPH/DIAG INJ SC/IM CPT-4: 09089 08/11/2012 VITAMIN B12 INJECTION CPT-4: J3420 07/13/2012 THER/PROPH/DIAG INJ SC/IM CPT-4: 71597 07/13/2012 THER/PROPH/DIAG INJ SC/IM CPT-4: 74191 05/26/2012 TRIAMCINOLONE ACET INJ NOS CPT-4: J3301 05/26/2012 VITAMIN B12 INJECTION CPT-4: J3420 05/26/2012 ADMIN INFLUENZA VIRUS VAC CPT-4: G0008 03/02/2012 FLULAVAL VACC, 3 YRS & >, IM CPT-4: Q2036 03/02/2012 PRESCRIP TRANSMIT VIA ERX SY CPT-4: G8553 02/15/2012 TRIAMCINOLONE ACET INJ NOS CPT-4: J3301 01/13/2012 VITAMIN B12 INJECTION CPT-4: J3420 12/21/2011 VITAMIN B12 INJECTION CPT-4: J3420 10/30/2011 THER/PROPH/DIAG INJ SC/IM CPT-4: 13177 10/30/2011 THER/PROPH/DIAG INJ SC/IM CPT-4: 61965 10/02/2011 VITAMIN B12 INJECTION CPT-4: J3420 10/02/2011 TRIAMCINOLONE ACET INJ NOS CPT-4: J3301 10/02/2011 PRESCRIP TRANSMIT VIA ERX SY CPT-4: G8553 10/02/2011 VITAMIN B12 INJECTION CPT-4: J3420 09/01/2011 URINALYSIS NONAUTO W/O SCOPE CPT-4: 95401 08/03/2011 VITAMIN B12 INJECTION CPT-4: J3420 08/03/2011 THER/PROPH/DIAG INJ SC/IM CPT-4: 94071 08/03/2011 THER/PROPH/DIAG INJ SC/IM CPT-4: 64246 06/11/2011 VITAMIN B12 INJECTION CPT-4: J3420 06/11/2011 ROUTINE VENIPUNCTURE CPT-4: 74626 06/11/2011 THER/PROPH/DIAG INJ SC/IM CPT-4: 91885 02/23/2011 VITAMIN B12 INJECTION CPT-4: J3420 02/23/2011 ADMIN INFLUENZA VIRUS VAC CPT-4: G0008 02/23/2011 FLULAVAL VACC, 3 YRS & >, IM CPT-4: Q2036 02/23/2011 Vital Signs Date Vital 04/05/2018 Blood Pressure 1: 144/80 Code : 8480-6 BMI: 30.9 Code : 85910-2 Heart Rate 1 : 118 bpm Height: 5'9" SpO2: 98% Weight: 209 lbs 03/10/2018 Blood Pressure 1: 128/82 Code : 8480-6 Blood Pressure 1: 162/74 Code: 8480-6 BMI: 30.3 Code: 99226-1 Heart Rate 1: 101 bpm Height: 5'9" SpO2: 98% Weight: 205 lbs 01/13/2018 Blood Pressure 1: 102/78 Code : 8480-6 BMI: 31.6 Code : 05679-8 Heart Rate 1 : 103 bpm Height: 5'9" SpO2: 98% Weight: 214 lbs 11/25/2017 Blood Pressure 1: 114/80 Code : 8480-6 BMI: 30.3 Code : 63970-4 Heart Rate 1 : 112 bpm Height: 5'9" SpO2: 98% Weight: 205 lbs 10/19/2017 Blood Pressure 1: 110/70 Code : 8480-6 BMI: 30.7 Code : 67484-6 Heart Rate 1 : 102 bpm Height: 5'9" SpO2: 97% Weight: 208 lbs 09/17/2017 Blood Pressure 1: 132/78 Code : 8480-6 BMI: 30.4 Code : 12278-8 Heart Rate 1 : 117 bpm Height: 5'9" SpO2: 97% Weight: 206 lbs 09/06/2017 Blood Pressure 1: 110/78 Code : 8480-6 BMI: 29.8 Code : 23590-2 Heart Rate 1 : 106 bpm Height: 5'9" SpO2: 97% Weight: 202 lbs 08/19/2017 Blood Pressure 1: 136/72 Code : 8480-6 BMI: 30.4 Code : 86647-6 Heart Rate 1 : 108 bpm Height: 5'9" SpO2: 94% Weight: 206 lbs 07/06/2017 Blood Pressure 1: 154/80 Code : 8480-6 Heart Rate 1: 111 bpm Height: 5'9" Respiratory Rate: 20 bpm SpO2: 98% Weight: 04/27/2017 Blood Pressure 1: 138/78 Code : 8480-6 BMI: 30.4 Code : 58112-9 Heart Rate 1 : 96 bpm Height: 5'9" SpO2: 97% Weight: 206 lbs 04/06/2017 Blood Pressure 1: 108/80 Code : 8480-6 BMI: 31.0 Code : 79019-8 Heart Rate 1 : 96 bpm Height: 5'9" SpO2: 98% Weight: 210 lbs 02/25/2017 Blood Pressure 1: 132/80 Code : 8480-6 BMI: 32.5 Code : 91193-0 Heart Rate 1 : 112 bpm Height: 5'9" SpO2: 94% Weight: 220 lbs 01/19/2017 Blood Pressure 1: 122/68 Code : 8480-6 Heart Rate 1: 100 bpm Height: 5'9" SpO2: 95% Weight: 11/17/2016 Blood Pressure 1: 132/74 Code : 8480-6 BMI: 32.2 Code : 77462-7 Heart Rate 1 : 98 bpm Height: 5'9" SpO2: 94% Weight: 218 lbs 10/12/2016 Blood Pressure 1: 130/82 Code : 8480-6 BMI: 32.2 Code : 69176-6 Heart Rate 1 : 97 bpm Height: 5'9" SpO2: 94% Weight: 218 lbs 08/18/2016 Blood Pressure 1: 132/78 Code : 8480-6 BMI: 32.0 Code : 14837-6 Heart Rate 1 : 113 bpm Height: 5'9" SpO2: 98% Weight: 217 lbs 08/07/2016 Blood Pressure 1: 126/70 Code : 8480-6 BMI: 33.1 Code : 89486-1 Heart Rate 1 : 102 bpm Height: 5'9" SpO2: 94% Weight: 224 lbs 07/31/2016 Blood Pressure 1: 134/66 Code : 8480-6 BMI: 31.7 Code : 36354-8 Heart Rate 1 : 97 bpm Height: 5'9" SpO2: 95% Temperature: 36.4 (C) / 97.6 (F) Weight: 215 lbs 07/15/2016 Blood Pressure 1: 126/62 Code : 8480-6 Heart Rate 1: 105 bpm Height: 5'9" Weight: 07/07/2016 Blood Pressure 1: 106/54 Code : 8480-6 BMI: 31.7 Code : 27995-0 Heart Rate 1 : 93 bpm Height: 5'9" SpO2: 97% Weight: 215 lbs 06/25/2016 Heart Rate 1: 99 bpm Height: 5'9" SpO2: 95% Weight: 05/07/2016 Blood Pressure 1: 124/86 Code : 8480-6 BMI: 28.5 Code : 98542-0 Heart Rate 1 : 100 bpm Height: 5'9" SpO2: 96% Weight: 193 lbs 04/20/2016 Blood Pressure 1: 120/80 Code : 8480-6 BMI: 28.5 Code : 44871-2 Heart Rate 1 : 86 bpm Height: 5'9" SpO2: 96% Weight: 193 lbs 03/17/2016 Blood Pressure 1: 120/70 Code : 8480-6 BMI: 29.1 Code : 71940-8 Heart Rate 1 : 103 bpm Height: 5'9" SpO2: 96% Weight: 197 lbs 03/05/2016 Blood Pressure 1: 124/78 Code : 8480-6 Heart Rate 1: 82 bpm Height: 5'9" SpO2: 94% Weight: 02/28/2016 Blood Pressure 1: 94/50 Code : 8480-6 Heart Rate 1: 91 bpm Height: 5'9" SpO2: 94% Weight: 02/13/2016 Blood Pressure 1: 128/86 Code : 8480-6 BMI: 28.6 Code : 00220-5 Heart Rate 1 : 100 bpm Height: 5'9" SpO2: 96% Weight: 194 lbs 08/15/2015 Blood Pressure 1: 128/68 Code : 8480-6 BMI: 27.3 Code : 52291-1 Heart Rate 1 : 72 bpm Height: 5'9" SpO2: 92% Weight: 185 lbs 07/25/2015 Blood Pressure 1: 122/76 Code : 8480-6 BMI: 27.5 Code : 94711-3 Heart Rate 1 : 70 bpm Height: 5'9" SpO2: 94% Weight: 186 lbs 06/25/2015 Blood Pressure 1: 118/54 Code : 8480-6 BMI: 26.7 Code : 67915-9 Heart Rate 1 : 98 bpm Height: 5'9" SpO2: 97% Weight: 181 lbs 06/10/2015 Blood Pressure 1: 110/68 Code : 8480-6 Heart Rate 1: 80 bpm Height: SpO2: 98% Weight: 05/08/2015 Blood Pressure 1: 120/68 Code : 8480-6 BMI: 27.5 Code : 04317-0 Heart Rate 1 : 95 bpm Height: 5'9" SpO2: 96% Weight: 186 lbs 03/26/2015 Blood Pressure 1: 120/80 Code : 8480-6 Heart Rate 1: 102 bpm Respiratory Rate: 18 bpm SpO2: 92% Weight: 186 lbs 03/15/2015 Blood Pressure 1: 122/64 Code : 8480-6 BMI: 26.6 Code : 24437-0 Heart Rate 1 : 96 bpm Height: 5'9" SpO2: 96% Weight: 180 lbs 01/10/2015 Blood Pressure 1: 120/68 Code : 8480-6 BMI: 27.5 Code : 80531-3 Heart Rate 1 : 90 bpm Height: 5'9" Weight: 186 lbs 12/21/2014 Blood Pressure 1: 118/78 Code : 8480-6 BMI: 27.2 Code : 38160-9 Heart Rate 1 : 61 bpm Height: 5'9" SpO2: 97% Weight: 184 lbs 10/05/2014 Blood Pressure 1: 118/64 Code : 8480-6 BMI: 27.0 Code : 64427-0 Heart Rate 1 : 76 bpm Height: 5'9" Weight: 183 lbs 06/14/2014 Blood Pressure 1: 120/78 Code : 8480-6 BMI: 26.6 Code : 44501-5 Heart Rate 1 : 96 bpm Height: 5'9" Weight: 180 lbs 01/19/2014 Blood Pressure 1: 128/76 Code : 8480-6 BMI: 27.3 Code : 36452-4 Heart Rate 1 : 82 bpm Height: 5'9" Weight: 185 lbs 01/15/2014 Blood Pressure 1: 110/62 Code : 8480-6 BMI: 27.9 Code : 42067-7 Heart Rate 1 : 80 bpm Height: 5'9" Weight: 189 lbs 10/20/2013 Blood Pressure 1: 112/62 Code : 8480-6 BMI: 30.1 Code : 22657-0 Heart Rate 1 : 76 bpm Height: [...] Code : 8480-6 BMI: 30.6 Code : 45075-0 Heart Rate 1 : 92 bpm Height: 5'9" Weight: 207 lbs 05/23/2013 Blood Pressure 1: 120/78 Code : 8480-6 Heart Rate 1: 84 bpm Weight: 05/19/2013 Blood Pressure 1: 126/78 Code : 8480-6 BMI: 30.3 Code : 24675-6 Heart Rate 1 : 88 bpm Height: 5'9" Weight: 205 lbs 05/16/2013 Blood Pressure 1: 126/66 Code : 8480-6 BMI: 30.3 Code : 81903-2 Heart Rate 1 : 84 bpm Height: 5'9" Weight: 205 lbs 03/06/2013 Blood Pressure 1: 128/76 Code : 8480-6 BMI: 30.6 Code : 57384-8 Heart Rate 1 : 88 bpm Height: 5'9" Weight: 207 lbs 12/26/2012 Blood Pressure 1: 142/70 Code : 8480-6 BMI: 29.6 Code : 33474-0 Heart Rate 1 : 100 bpm Height: 5'9" Weight: 200 lbs 8 oz 11/21/2012 Blood Pressure 1: 132/80 Code : 8480-6 BMI: 29.5 Code : 86624-7 Heart Rate 1 : 96 bpm Height: [...] Code : 8480-6 BMI: 29.2 Code : 79570-9 Heart Rate 1 : 64 bpm Height: 5'9" Respiratory Rate: 16 bpm Weight: 198 lbs 03/11/2011 Blood Pressure 1: 106/60 Code : 8480-6 BMI: 28.8 Code : 14303-4 Heart Rate 1 : 100 bpm Height: 5'9" SpO2: 97% Weight: 195 lbs 02/12/2011 Weight: 192 lbs 01/29/2011 Blood Pressure 1: 100/64 Code : 8480-6 BMI: 28.1 Code : 98440-7 Heart Rate 1 : 100 bpm Height: [...] Hospital Follow Up _ pain 05/16/2013 left [id number]-tlqsy to left knee-applying neosporin and covering with [...] pt to have a study done at [facility] [id number] shortness of breath Triggers exertion 03/11/2011 None [...] 02/12/2011 and pt went to her chiropractor/ [employer] operator this week and was" worked on" and she has been feeling better shortness of breath Alleviating Factors rest 02/12/2011 pt states that her shortness of breath got better after her brownell operator adjusted her pelvis gastroesophageal reflux Quality heartburn [...] data Encounters Encounter Performer Location Codes Date ([id number]) 07660 EST. PATIENT, LEVEL IV Diagnosis: Essential (primary) hypertension[ICD10: I10] Diagnosis: Chronic pain syndrome[ICD10: G89.4] Diagnosis: Vitamin B12 deficiency anemia due to intrinsic factor deficiency[ ICD10: D51.0] [facility] CPT-4: 14454 04/05/2018 ([id number]) 80314 EST. PATIENT, LEVEL IV Diagnosis: Essential (primary) hypertension[ICD10: I10] Diagnosis: Generalized anxiety disorder[ICD10: F41.1] Diagnosis: Major depressive disorder, recurrent, mild[ICD10: F33.0] Diagnosis: Vitamin B12 deficiency anemia due to intrinsic factor deficiency[ ICD10: D51.0] Valentina Thompson MD, [facility] CPT-4: 75571 03/10/2018 ([id number]) 96433 EST. PATIENT, LEVEL IV Diagnosis: Headache[ICD10: R51] Diagnosis: Obstructive sleep apnea (adult) (pediatric)[ICD10: G47.33] Diagnosis: Cervicalgia[ICD10: M54.2] Valentina Thompson MD, [facility] CPT-4: 72575 01/13/2018 ([id number]) 07098 EST. PATIENT, LEVEL IV Diagnosis: Headache[ICD10: R51] Diagnosis: Spinal stenosis, cervical region[ICD10: M48.02] Diagnosis: Major depressive disorder, recurrent, mild[ICD10: F33.0] Valentina Thompson MD , [facility] CPT-4: 02811 11/25/2017 ([id number]) 01292 EST. PATIENT, LEVEL III Diagnosis: Allergic contact dermatitis due to plants, except food[ICD10: L23.7] Diagnosis: Vitamin B12 deficiency anemia due to intrinsic factor deficiency[ ICD10: D51.0] Valentina Thompson MD, [facility] CPT-4: 96243 10/19/2017 ([id number]) 71350 EST. PATIENT, LEVEL IV Diagnosis: Generalized abdominal pain[ICD10: R10.84] Diagnosis: Urinary tract infection, site not specified[ICD10: N39.0] Diagnosis: Hypokalemia[ICD10: E87.6] Valentina Thompson MD, [facility] CPT-4: 47471 09/17/2017 ([id number]) 13902 EST. PATIENT, LEVEL IV Diagnosis: Chronic pain syndrome[ICD10: G89.4] Diagnosis: Pain in left knee[ICD10: M25.562] Diagnosis: Pain in right knee[ICD10: M25.561] Diagnosis: Essential (primary) hypertension[ICD10: I10] Aicha Thompson MD, [facility] CPT-4: 19502 09/06/2017 ([id number]) 45572 EST. PATIENT, LEVEL IV Diagnosis: Headache[ICD10: R51] Diagnosis: Chronic pain syndrome[ICD10: G89.4] Diagnosis: Mixed hyperlipidemia[ICD10: E78.2] Diagnosis: Vitamin D deficiency, unspecified[ICD10: E55.9] Diagnosis: Vitamin B12 deficiency anemia, unspecified[ICD10: D51.9] Valentina Thompson MD , [facility] CPT-4: 12516 08/19/2017 64806 EST. PATIENT, LEVEL V Diagnosis: Essential (primary) hypertension[ICD10: I10] Diagnosis: Vitamin B12 deficiency anemia due to intrinsic factor deficiency[ ICD10: D51.0] Diagnosis: Chronic pain syndrome[ICD10: G89.4] Aicha Thompson MD, [facility] CPT-4: 87380 07/06/2017 ([id number]) 68512 EST. PATIENT, LEVEL IV Diagnosis: Cervicalgia[ICD10: M54.2] Diagnosis: Laceration without foreign body of scalp, initial encounter[ICD10: S01.01XA] Diagnosis: Vitamin B12 deficiency anemia due to intrinsic factor deficiency[ ICD10: D51.0] Valentina Thompson MD, [facility] CPT-4: 00799 04/27/2017 29434 EST. PATIENT, LEVEL II Diagnosis: Residual hemorrhoidal skin tags[ICD10: K64.4] Valentina Thompson MD, [facility] CPT-4: 44444 04/06/2017 ([id number]) 92060 EST. PATIENT, LEVEL III Diagnosis: Pain in right foot[ICD10: M79.671] Diagnosis: Pain in left foot[ICD10: M79.672] Diagnosis: Cervicalgia[ICD10: M54.2] Valentina Thompson MD, [facility] CPT-4: 19456 02/25/2017 ([id number]) 87736 EST. PATIENT, LEVEL IV Diagnosis: Essential (primary) hypertension[ICD10: I10] Diagnosis: Chronic pain syndrome[ICD10: G89.4] Diagnosis: Spinal stenosis, cervical region[ICD10: M48.02] Diagnosis: Pain in right leg[ICD10: M79.604] Valentina Thompson MD, [facility] CPT-4: 75977 01/19/2017 ([id number]) 57227 EST. PATIENT, LEVEL III Diagnosis: Pain in right foot[ICD10: M79.671] Diagnosis: Pain in left foot[ICD10: M79.672] Diagnosis: Chronic pain syndrome[ICD10: G89.4] Diagnosis: Vitamin B12 deficiency anemia, unspecified[ICD10: D51.9] Valentina Thompson MD , [facility] CPT-4: 58650 11/17/2016 ([id number]) 85290 EST. PATIENT, LEVEL IV Diagnosis: Essential (primary) hypertension[ICD10: I10] Diagnosis: Chronic pain syndrome[ICD10: G89.4] Diagnosis: Foot drop, right foot[ICD10: M21.371] Diagnosis: Foot drop, left foot[ICD10: M21.372] Diagnosis: Other abnormalities of gait and mobility[ICD10: R26.89] Diagnosis: Vitamin B12 deficiency anemia due to intrinsic factor deficiency[ ICD10: D51.0] Aicha Thompson MD, [facility] CPT-4: 68019 10/12/2016 ([id number]) 27171 EST. PATIENT, LEVEL III Diagnosis: Pain in right ankle and joints of right foot[ICD10: M25.571] Diagnosis: Superficial foreign body, right foot, initial encounter[ICD10: S90.851A] Valentina Thompson MD, [facility] CPT-4: 73056 ([id number]) 07258 EST. PATIENT, LEVEL III Diagnosis: Candidiasis of vulva and vagina[ICD10: B37.3] Diagnosis: Vitamin B12 deficiency anemia, unspecified[ICD10: D51.9] Valentina Thompson MD , [facility] CPT-4: 26329 08/07/2016 ([id number]) 84915 EST. PATIENT, LEVEL III Diagnosis: Spinal stenosis, cervical region[ICD10: M48.02] Diagnosis: Pain in right ankle and joints of right foot[ICD10: M25.571] Diagnosis: Pain in left ankle and joints of left foot[ICD10: M25.572] Valentina Thompson MD, [facility] CPT-4: 96474 07/31/2016 85681 EST. PATIENT, LEVEL III Diagnosis: Cervicalgia[ICD10: M54.2] Diagnosis: Chronic pain syndrome[ICD10: G89.4] Beatriz Thompson MD, [facility] CPT-4: 86685 07/15/2016 ([id number]) 34904 EST. PATIENT, LEVEL III Diagnosis: Spinal stenosis, cervical region[ICD10: M48.02] Diagnosis: Low back pain[ICD10: M54.5] Valentina Thompson MD, [facility] CPT-4: 34498 07/07/2016 ([id number]) 89242 EST. PATIENT, LEVEL IV Diagnosis: Cervicalgia[ICD10: M54.2] Diagnosis: Essential (primary) hypertension[ICD10: I10] Diagnosis: Mixed hyperlipidemia[ICD10: E78.2] Aicha Thompson MD, [facility] CPT-4: 31106 06/25/2016 ([id number]) 97952 EST. PATIENT, LEVEL III Diagnosis: Cervicalgia[ICD10: M54.2] Valentina Thompson MD, [facility] CPT-4: 33099 05/07/2016 ([id number]) 65494 EST. PATIENT, LEVEL III Diagnosis: Pleurodynia[ICD10: R07.81] Diagnosis: Generalized anxiety disorder[ICD10: F41.1] Diagnosis: Vitamin B12 deficiency anemia due to intrinsic factor deficiency[ ICD10: D51.0] Diagnosis: Hypoxemia[ICD10: R09.02] Valentina Thompson MD, [facility] CPT-4: 18611 04/20/2016 ([id number]) 46556 EST. PATIENT, LEVEL III Diagnosis: Generalized anxiety disorder[ICD10: F41.1] Diagnosis: Radiculopathy, lumbar region[ICD10: M54.16] Valentina Thompson MD, [facility] CPT-4: 11612 03/17/2016 67827 EST. PATIENT, LEVEL IV Diagnosis: Chronic pain syndrome[ICD10: G89.4] Diagnosis: Radiculopathy, lumbar region[ICD10: M54.16] Diagnosis: Generalized anxiety disorder[ICD10: F41.1] Beatriz Thompson MD, [facility] CPT-4: 44329 03/05/2016 ([id number]) 31867 EST. PATIENT, LEVEL III Diagnosis: Radiculopathy, lumbar region[ICD10: M54.16] Diagnosis: Generalized anxiety disorder[ICD10: F41.1] Valentina Thompson MD, [facility] CPT-4: 51569 02/28/2016 ([id number]) 39912 EST. 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 PATIENT, LEVEL III Diagnosis: Headache[ICD10: R51] Diagnosis: Cervicalgia[ICD10: M54.2] Valentina Thompson MD, [facility] CPT-4: 68672 08/15/2015 ([id number]) 43034 EST. PATIENT, LEVEL III Diagnosis: Generalized anxiety disorder[ICD10: F41.1] Diagnosis: Cervicalgia[ICD10: M54.2] Valentina Thompson MD, [facility] CPT-4: 14633 07/25/2015 ([id number]) 71673 EST. PATIENT, LEVEL IV Diagnosis: Pain in right foot[ICD10: M79.671] Diagnosis: Unspecified osteoarthritis, unspecified site[ICD10: M19.90] Diagnosis: Pain in left ankle and joints of left foot[ICD10: M25.572] Diagnosis: Pain in right ankle and joints of right foot[ICD10: M25.571] Valentina Thompson MD, [facility] CPT-4: 03598 06/25/2015 [id number]) 17683 EST. 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 PATIENT, LEVEL IV Diagnosis: Essential (primary) hypertension[ICD10: I10] Diagnosis: Pain in right foot[ICD10: M79.671] Diagnosis: Pain in left foot[ICD10: M79.672] Diagnosis: Anxiety disorder, unspecified[ICD10: F41.9] Aicha Thompson MD, [facility] CPT-4: 06660 05/08/2015 ([id number]) 55285 EST. PATIENT, LEVEL III Diagnosis: Generalized anxiety disorder[ICD10: F41.1] Diagnosis: Essential (primary) hypertension[ICD10: I10] Diagnosis: Other myositis, multiple sites[ICD10: M60.89] Valentina Thompson MD, [facility] CPT-4: 68710 03/26/2015 13707 EST. PATIENT, LEVEL III Diagnosis: Chronic pain syndrome[ICD10: G89.4] Diagnosis: Unspecified osteoarthritis, unspecified site[ICD10: M19.90] Diagnosis: Pain in right foot[ICD10: M79.671] Diagnosis: Pain in left foot[ICD10: M79.672] Beatriz Thompson MD, [facility] CPT -4: 90275 03/15/2015 ([id number]) 15366 EST. PATIENT, LEVEL III Diagnosis: Abrasion of knee, left[ICD9: 916.0] Valentina Thompson MD, [facility] CPT-4: 23856 01/10/2015 ([id number]) 30091 EST. PATIENT, LEVEL IV Diagnosis: CHRONIC PAIN SYNDROME[ICD9: 338.4] Diagnosis: MYALGIA AND MYOSITIS[ICD9: 729.1] Diagnosis: OSTEOARTH NOS-UNSPEC[ICD9: 715.90] Diagnosis: DEPRESSIVE DISORDER NEC[ICD9: 311] Diagnosis: GENERALIZED ANXIETY DISEASE[ICD9: 300.02] Valentina Thompson MD, [facility] CPT-4: 14422 12/21/2014 ([id number]) 95253 EST. PATIENT, LEVEL IV Diagnosis: GENERALIZED ANXIETY DISEASE[ICD9: 300.02] Diagnosis: DEPRESSIVE DISORDER NEC[ICD9: 311] Diagnosis: ESSENTIAL HYPERTENSION[ICD9: 401.9] Valentina Thompson MD, [facility] CPT-4: 89138 10/05/2014 ([id number]) 31318 EST. PATIENT, LEVEL III Diagnosis: Knee pain, right[ICD9: 719.46] Diagnosis: CHRONIC PAIN SYNDROME[ICD9: 338.4] Diagnosis: Ankle pain[ICD9: 719.47] Aicha Thompson MD, [facility] CPT-4: 90632 06/14/2014 ([id number]) 30547 EST. PATIENT, LEVEL III Diagnosis: Constipation[ICD9: 564.00] Diagnosis: Hemorrhoids[ICD9: 455.6] Valentina Thompson MD, [facility] CPT-4: 96204 01/19/2014 ([id number]) 60183 EST. PATIENT, LEVEL III Diagnosis: Ulcer of knee[ICD9: 707.19] Diagnosis: Hemorrhoids[ICD9: 455.6] Diagnosis: B12 deficiency[ICD9: 266.2] Diagnosis: ALLERGIC RHINITIS[ICD9: 477.9] Valentina Thompson MD, [facility] CPT-4: 60752 01/15/2014 ([id number]) 83228 EST. PATIENT, LEVEL IV Diagnosis: EDEMA[ICD9: 782.3] Diagnosis: Open wound of knee[ICD9: 891.0] Diagnosis: CHRONIC PAIN SYNDROME[ICD9: 338.4] Diagnosis: ANEMIA[ICD9: 285.9] Valentina Thompson MD, [facility] CPT-4: 62822 10/20/2013 ([id number]) 73353 EST. PATIENT, LEVEL III Diagnosis: ULCER OTH PART LOW LIMB[ICD9: 707.19] Valentina Thompson MD, [facility] CPT-4: 82984 07/24/2013 ([id number]) 42845 EST. PATIENT, LEVEL III Diagnosis: ULCER OTH PART LOW LIMB[ICD9: 707.19] Valentina Thompson MD, [facility] CPT-4: 36679 06/23/2013 ([id number]) 33655 EST. PATIENT, LEVEL III Diagnosis: ULCER OTH PART LOW LIMB[ICD9: 707.19] Valentina Thompson MD [facility] CPT-4: 43083 06/12/2013 ([id number]) Miscellaneous no charge Diagnosis: ULCER OTH PART LOW LIMB[ICD9: 707.19] Valentina Thompson MD [facility] CPT-4: 64311 05/29/2013 ([id number]) 72980 EST. PATIENT, LEVEL III Diagnosis: ULCER OTH PART LOW LIMB[ICD9: 707.19] Valentina Thompson MD [facility] CPT-4: 40216 05/23/2013 ([id number]) Miscellaneous no charge Diagnosis: ULCER OTH PART LOW LIMB[ICD9: 707.19] Valentina Thompson MD [facility] CPT-4: 29466 05/19/2013 ([id number]) 94357 EST. PATIENT, LEVEL III Diagnosis: Ulcer of knee[ICD9: 707.19] Valentina Thompson MD [facility] CPT-4: 80966 05/16/2013 ([id number]) 57649 EST. PATIENT, LEVEL III Diagnosis: ALLERGIC RHINITIS[ICD9: 477.9] Aicha Thompson MD [facility] CPT- 4: 53750 03/06/2013 ([id number]) 42835 EST. PATIENT, LEVEL IV Diagnosis: Ankle pain[ICD9: 719.47] Diagnosis: ALLERGIC RHINITIS[ICD9: 477.9] Diagnosis: ESSENTIAL HYPERTENSION[SNOMED: 97563127] Aicha Thompson MD [facility] CPT-4: 28033 12/26/2012 ([id number]) 07804 EST. PATIENT, LEVEL IV Diagnosis: ESSENTIAL HYPERTENSION[SNOMED: 31920903] Diagnosis: JOINT PAIN-L/LEG[ICD9: 719.46] Diagnosis: GENERALIZED ANXIETY DISEASE[ICD9: 300.02] Diagnosis: UNSPECIFIED ASTHMA[ICD9: 493.90] Aicha Thompson MD [facility] CPT-4: 08331 11/21/2012 ([id number]) Miscellaneous no charge Diagnosis: Encounter for tuberculin skin test[ICD9: V74.1] Aicha Thompson MD [facility] CPT-4: 02438 09/28/2012 ([id number]) 27431 EST. PATIENT, LEVEL IV Diagnosis: FEVER NOS[ICD9: 780.60] Diagnosis: PNEUMONIA (CAP)[ICD9: 486] Aicha Thompson MD, [facility] CPT- 4: 47403 07/21/2012 ([id number]) 44684 EST. PATIENT, LEVEL IV Diagnosis: JOINT PAIN-ANKLE[ICD9: 719.47] Diagnosis: MUSCLE/LIGAMENT DIS NEC[ICD9: 728.89] Diagnosis: Fibromyalgia muscle pain[ICD9: 729.1] Aicha Thompson MD, [facility] CPT-4: 05503 07/13/2012 ([id number]) 55737 EST. PATIENT, LEVEL IV Diagnosis: Right foot pain[ICD9: 729.5] Diagnosis: Plantar fasciitis[ICD9: 728.71] Diagnosis: GENERALIZED ANXIETY DISEASE[ICD9: 300.02] Diagnosis: B-COMPLEX DEFIC NEC[ICD9: 266.2] Aicha Thompson MD, [facility] CPT-4: 28757 05/26/2012 ([id number]) 61752 EST. PATIENT, LEVEL IV Diagnosis: Chest wall pain[ICD9: 786.52] Diagnosis: Esophageal reflux[ICD9: 530.81] Diagnosis: ALLERGIC RHINITIS[ICD9: 477.9] Valentina Thompson MD, [facility] CPT-4: 17303 02/15/2012 ([id number]) 24501 EST. PATIENT, LEVEL IV Diagnosis: ALLERGIC RHINITIS[ICD9: 477.9] Diagnosis: HYPERLIPIDEMIA[ICD9: 272.4] Aicha Thompson MD, [facility] CPT- 4: 77646 01/13/2012 ([id number]) 90425 EST. PATIENT, LEVEL IV Diagnosis: JOINT PAIN-L/LEG[ICD9: 719.46] Diagnosis: UNSPECIFIED ASTHMA[ICD9: 493.90] Diagnosis: Costalchondritis[ICD9: 733.6] Aicha Thompson MD, [facility] CPT- 4: 57398 12/21/2011 ([id number]) 05911 EST. PATIENT, LEVEL IV Diagnosis: Hyperlipidemia[ICD9: 272.4] Diagnosis: ALLERGIC RHINITIS[ICD9: 477.9] Diagnosis: B12 deficiency[ICD9: 266.2] Diagnosis: Hypopotassemia[ICD9: 276.8] Valentina Thompson MD, [facility] CPT-4: 35741 10/02/2011 ([id number]) 75579 EST. PATIENT, LEVEL IV Diagnosis: Pain in joint involving forearm[ICD9: 719.43] Diagnosis: Neck pain[ICD9: 723.1] Diagnosis: Fall on same level from slipping, tripping, or stumbling[ICD9: E885.9 ] Diagnosis: B12 deficiency[ICD9: 266.2] Aicha Thompson MD, [facility] CPT- 4: 73450 09/01/2011 ([id number]) 80900 EST. PATIENT, LEVEL IV Diagnosis: Vulvovaginitis[ICD9: 616.10] Diagnosis: OVERWEIGHT[ICD9: 278.02] Diagnosis: MYALGIA AND MYOSITIS[ICD9: 729.1] Aicha Thompson MD, [facility] CPT-4: 84878 08/03/2011 ([id number]) 24010 EST. PATIENT, LEVEL IV Diagnosis: MUSCLE/LIGAMENT DIS NEC[ICD9: 728.89] Diagnosis: CHRONIC PAIN SYNDROME[ICD9: 338.4] Diagnosis: Weight gain[ICD9: 783.1] Aicha Thompson MD, [facility] CPT-4: 78704 06/29/2011 62518 EST. PATIENT, LEVEL IV Diagnosis: Wrist pain[ICD9: 719.43] Diagnosis: Knee pain, right[ICD9: 719.46] Diagnosis: Fall on same level from slipping, tripping, or stumbling[ICD9: E885.9 ] Aicha Thompson MD, [facility] CPT-4: 21542 06/22/2011 65908 EST. PATIENT, LEVEL IV Diagnosis: MUSCLE/LIGAMENT DIS NEC[ICD9: 728.89] Diagnosis: JOINT PAIN-L/LEG[ICD9: 719.46] Diagnosis: OSTEOARTH NOS-UNSPEC[ICD9: 715.90] Diagnosis: B12 deficiency[ICD9: 266.2] Aicha Thompson MD, [facility] CPT- 4: 97042 06/11/2011 28069 EST. 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 PATIENT, LEVEL IV Diagnosis: Knee pain, bilateral[ICD9: 719.46] Diagnosis: Iliotibial band syndrome[ICD9: 728.89] Diagnosis: Fibromyalgia syndrome[ICD9: 729.1] [facility] CPT-4: 16206 02/12/2011 15393 EST. PATIENT, LEVEL IV Diagnosis: FALL FROM SLIPPING[ICD9: E885.9] Diagnosis: Pain in joint involving lower leg[ICD9: 719.46] Diagnosis: ESOPHAGEAL REFLUX[ICD9: 530.81] Diagnosis: ESSENTIAL HYPERTENSION[SNOMED: 58855133] [facility] CPT-4: 41999 01/29/2011 Plan of Care Planned Activity Notes [...] 1015 [facility] [place] (30 min) Complex 04/05/2018 Patient Education: Patient Medication Summary Completed 04/05/2018 Appointment: Aicha Thompson WPtel: [phone] [facility] (15 min) Moderate 03/17/2018 Visit Plan: Hypertension [...] 2 weeks 03/10/2018 Appointment: Valentina Smith WPtel: [phone] [phone] [place] (15 min) Moderate 03/10/2018 Appointment: Aicha Thompson WPtel: [phone] [facility] [place] (15 min) Moderate 03/10/2018 Patient Education: [...] appt scheduled 01/13/2018 Appointment: Valentina Smith WPtel: [facility] [place][note 2]3 [facility] (15 min) Moderate 01/13/2018 Patient Education: Patient [...] current medications. 11/25/2017 Appointment: Valentina Smith WPtel: [facility] [place][note 2]9 [phone] (30 min) Complex 11/25/2017 Patient Education: Patient Medication Summary Completed 11/25/2017 Visit Plan: Contact dermatitis-discussed natural and expected course of this diagnosis and to alert me if symptoms do not resolve or if any worse. RX sent to patient's pharmacy and instructed on use. 10/19/2017 Appointment: Valentina Smith WPtel: [address] [place], [place] [phone] (15 min) Moderate 10/19/2017 Patient Education: Patient Medication Summary Completed 10/19/2017 Appointment: Valentina Smith WPtel: [address] [place], [place] [phone] (30 min) Complex 09/27/2017 Visit Plan: Generalized abd obkc-FHR-nhrcht cipro/flagyl- culture urine-recommend patient follow up with Dr Grace for an appt if abdominal pain does not improve Low potassium-check labs 09/17/2017 Visit Plan: Generalized abd hjut-ERH-jebhmu cipro/flagyl- culture urine-recommend patient follow up with Dr Grace for an appt if abdominal pain does not improve Low potassium-check labs 09/17/2017 Appointment: Valentina Smith WPtel: [facility] [place][note 2]5 [phone] (30 min) Complex 09/17/2017 Patient [...] of over-medication. 09/06/2017 Appointment: Aicha Thompson WPtel: [facility] [place][note 2]5 [facility] (30 min) Complex 09/06/2017 Patient Education: Patient Medication Summary Completed 09/06/2017 Appointment: Aicha Thompson WPtel: [facility] [place][note 2]5 [facility] (30 min) Complex 09/02/2017 Appointment: Aicha Thompson WPtel: [address] [place], [place] [phone] (30 min) Complex 08/23/2017 Visit Plan: Headaches-neck pain-patient is to let us know which neurologist she wants to see B12 def-injection today in the office Hyperlipidemia-check labs Vitamin D def-check level 08/19/2017 Appointment: Valentina Smith WPtel: [facility] [place][note 2]5 [phone] [place] (30 min) Complex 08/19/2017 Patient Education: [...] the list of the neurologists that her claims collector has recommended and we would consider a [...] the list of the neurologists that her claims collector has recommended and we would consider a [...] the psychiatrist. 07/06/2017 Appointment: Aicha Thompson WPtel: [facility] [place][note 2]5 [facility] (30 min) Complex 07/06/2017 Patient Education: Patient Medication Summary Completed 07/06/2017 Appointment: Aicha Thompson WPtel: [address] [place] [address] (30 min) Complex 07/05/2017 Appointment: Valentina Smith WPtel: [address] [place], [place] [phone] (30 min) Complex 05/17/2017 Appointment: Beatriz Mojica WPtel: [facility] [place][note 2]5 [facility] (30 min) Complex 05/14/2017 Visit Plan: Neck cmlf-wgbliqm-lfmoiiu to continue f/u with [facility]-her symptoms have [...] of plan. 04/27/2017 Appointment: Valentina Smith WPtel: [facility] [place][note 2]4 [phone] (30 min) Complex 04/27/2017 Patient Education: Patient Medication Summary Completed 04/27/2017 Patient Education: Obesity Completed 04/27/2017 Visit Plan: Hemorrhoidal skin tag-no acute inflammation today -may use hemorrhoid cream as directed as needed-call with any concerns, bleeding, etc. 04/06/2017 Appointment: Valentina Smith WPtel: [address] [place], [place] [phone] (30 min) Complex 04/06/2017 Patient Education: Patient Medication Summary Completed 04/06/2017 Patient Education: Obesity Completed 04/06/2017 Visit Plan: Bilateral foot and ankle pain-now has AFOs-we have made her several appt with podiatrists which she has not kept-recommend patient call Dr Saunders and reschedule appt with him. Neck pain-[facility] appt next week-KEEP APPOINTMENT! 02/25/2017 Appointment: Valentina Smith WPtel: [facility] [place][note 2]5 [phone] (30 min) Complex 02/25/2017 Patient [...] podiatry for evaluation-wants to see someone in [place] 11/17/2016 Appointment: Valentina Smith WPtel: [facility] [place][note 2]5 [phone] (30 min) Complex 11/17/2016 Patient Education: Patient Medication Summary Completed 11/17/2016 Appointment: Valentina Smithtel: [facility] [place][note 2]5 [phone] (30 min) Complex 11/16/2016 Visit Plan: [place] referral - pt to indicate when and who she would like to go to - for neck and back AFO for both legs - [facility] in [place], [place]- fax #[phone] pt has been seen by security delivery specialist - need brace because of bilateral [...] over- medication. 10/12/2016 Appointment: Aicha Thompson WPtel: [facility] [place] ([facility] Complex 10/12/2016 Patient Education: Patient Medication Summary Completed 10/12/2016 Patient Education: Obesity Completed 10/12/2016 Appointment: Injection 09/11/2016 Patient Education: Patient Medication Summary Completed 09/11/2016 Visit Plan: Right ankle pain/instability-xray negative- will obtain MRI ankle Ulcer right foot-instructed patient on wound care and the importance of keeping wound clean-f/u in 10-14 days for re-evaluation 08/18/2016 Appointment: Valentina Smith WPtel: [facility] [place] 2][phone] (30 min) Complex 08/18/2016 Patient Education: Patient Medication Summary Completed 08/18/2016 Patient Education: Obesity Completed 08/18/2016 Care Plan: X-RAY EXAM NECK SPINE 2-3 VW LOINC : 35869-0 Pending 08/15/2016 Visit Plan: Vaginal yeast infection-RX for diflucan B12 deficiency-check labs 08/07/2016 Appointment: Valentina Smith WPtel: [facility] [place][note 2]1 [phone] (30 min) Complex 08/07/2016 Patient Education: Patient Medication Summary Completed 08/07/2016 Visit Plan: Cervical stenosis-saw Dr Ramey-Dr Ramey is going to send her to for further evaluation Bilateral ankle pain-xray ankles 07/31/2016 Appointment: Valentina Smith WPtel: [facility] [place][note 2]5 [phone] (30 min) Complex 07/31/2016 Patient Education: Patient Medication Summary Completed 07/31/2016 Patient Education: Obesity Completed 07/31/2016 Visit Plan: Neck pain after fall - Will check x-ray, Pt is to follow up with Dr. Perez. Pt is to notify clinic if symptoms do not improve , if they worsen, or with any questions or concerns. 07/15/2016 Appointment: Beatriz Mojica WPtel: [facility] [place]note 2]2 [facility] (30 min) Complex 07/15/2016 Patient Education: [...] Appointment: Injection 07/03/2016 Appointment: Valentina Smith WPtel: [facility] [place][note 2]7 [phone] (30 min) Complex 07/03/2016 Patient [...] despite PT. 05/07/2016 Appointment: Valentina Smith WPtel: [facility] [place][note 2] [phone] (30 min) [facility] 05/07/2016 Patient Education: Patient Medication Summary Completed 05/07/2016 Patient Education: Obesity Completed 05/07/2016 Care Plan: MRI NECK SPINE W/O DYE LOINC : 19671-4 Pending 05/07/2016 Visit Plan: Chronic Depression and [...] monitor symptoms 04/20/2016 Appointment: Valentina Smith WPtel: [phone] [phone] [place] (30 min) Complex 04/20/2016 Patient Education: Patient Medication Summary Completed 04/20/2016 Appointment: Valentina Smith WPtel: [phone] [phone] (30 min) Complex 03/19/2016 Visit Plan: Chronic [...] Dr Ibarra 03/17/2016 Appointment: Valentina Smith WPtel: [facility] [place][note 2] [phone] [place] (30 min) Complex 03/17/2016 [...] current medications. 02/28/2016 Appointment: Valentina Smith WPtel: [address] [place] [address] (15 min) Moderate 02/28/2016 Patient Education: Patient Medication Summary Completed 02/28/2016 Appointment: Valentina Smith WPtel: [address] [place] [address] (30 min) Complex 02/27/2016 Visit Plan: Hypertension [...] d level 02/13/2016 Appointment: Valentina Smith WPtel: [facility] [place][note 2]5 [phone] (30 min) Complex 02/13/2016 Patient [...] Completed 02/03/2016 Care Plan: SCREENINGMAMMOGRAPHYDIGITAL LOINC : 86836-9 Pending 02/03/2016 Appointment: Injection 01/15/2016 Appointment: Lab [...] EXAM NECK SPINE 2-3 VW LOINC : 72878-0 Ordered 08/15/2015 Visit Plan: Anxiety-fairly well controlled-does [...] side effects. 05/08/2015 Appointment: Aicha Thompson WPtel: [facility] [place]note 2]5 [facility] (30 min) Complex 05/08/2015 Patient Education: Patient [...] Care Plan: COMPLETE CBC AUTOMATED LOINC : 07318-5 Ordered 10/05/2014 Visit Plan: Chronic Pain Syndrome - pt has chronic pain - has been maintained on current medications, has not sought out other medications , only uses PRN pain medications as directed, and understands the consequences of over-medication. Right hip/knee/ankle pain-improving since last fall- continue physical therapy exercises-continue supportive shoes and use walker for stability 06/14/2014 Appointment: Valentina Smith WPtel: [phone] [phone] Follow up 06/14/2014 Patient Education: Patient Medication [...] the instructions given to her from her material crew supervisor and she is to call him if her constipation is uncontrolled. Hemorrhoids-use suppositories as directed. 01/19/2014 Patient Education: Patient Medication Summary Completed 01/19/2014 Visit Plan: Ulcer of ubth-arrtxuf-lfuhp instructions provided today and instructed patient to return as directed-keep wound clean and dry. Hemorrhoids-refill anusol suppositories and use as directed B12 deficiency-b12 injection today in the office Nstmaarlr-zuthfioacviq-cihkqxd injection today in the office-continue oral medications [...] Anemia-check labs 10/20/2013 Appointment: Valentina Smith WPtel: [address] [place], [place] [phone] [place] Other 10/20/2013 Patient Education: Patient Medication Summary Completed 10/20/2013 Appointment: Valentina Smith WPtel: [facility] [place][note 2]5 [phone] [place] Injection 08/21/2013 Appointment: Aicha Thompson WPtel: [address] [place], [place] [address] [place] Follow up 07/31/2013 Visit Plan: Ulcer of knee healing-silver nitrate to granulation tissue-instructed patient to monitor and call if it does not completely heal for appointment-instructed on wound care-patient and mother verbalized understanding of plan. 07/24/2013 Patient Education: Patient Medication Summary Completed 07/24/2013 Patient Education: Patient Medication Summary Completed 07/24/2013 Appointment: Valentina Smith WPtel: [address] [place], [place] [phone] Follow up 07/03/2013 Visit Plan: Ulcer-left knee-fibrous tissue removed from wound bed to reveal pink granulation tissue-wound cleansed and dressing applied. Instructed patient on wound care. Return in 10 days for follow up. 06/23/2013 Appointment: Valentina Smith WPtel: [address] [place], [place] [phone] Follow up 06/23/2013 Patient Education: Patient Medication Summary Completed 06/23/2013 Appointment: Valentina Smith WPtel: [address] [place], [place] [phone] Follow up 06/22/2013 Appointment: Aicha Thompson WPtel: [address] [place], [place] [phone] Follow up 06/22/2013 Visit Plan: Ulcer-left knee-fibrous tissue removed from wound bed to reveal pink granulation tissue-wound cleansed and dressing applied. Instructed patient on wound care. Return in 10 days for follow up. 06/12/2013 Appointment: Valentina Smith WPtel: [address] [place], [place] [phone] Follow up 06/12/2013 Patient Education: Patient Medication Summary Completed 06/12/2013 Appointment: Aicha Thompson WPtel: [address] [place] [address] Follow up 06/08/2013 Visit Plan: Ulcer left aqns-kjlcazuh-w/u in 10 days 05/29/2013 Appointment: Valentina Smith WPtel: [address] [place], [place] [phone] Follow up 05/29/2013 Patient Education: Patient Medication Summary Completed 05/29/2013 Visit Plan: Ulcer of knee-sharp debridement today in the office--wound care instructions provided for patient-patient and mother verbalized understanding of plan. Follow up next week. 05/23/2013 Appointment: Valentina Smith WPtel: [address] [place], [place] [phone] [place] Follow up 05/23/2013 Patient Education: Patient Medication Summary Completed 05/23/2013 Appointment: Valentina Smith WPtel: [address] [place], [place] [phone] Follow up 05/22/2013 Visit Plan: Ulcer of knee-wound care instructions provided for patient-patient and mother verbalized understanding of plan. 05/19/2013 Appointment: Valentina Smith WPtel: [address] [place], [place] [phone] Other 05/19/2013 Patient Education: Patient Medication Summary Completed 05/19/2013 Visit Plan: Ulcer of knee-fibrous tissue debrided today in the office--wound care instructions provided for patient-return in 1 week for follow up. 05/16/2013 Appointment: Valentina Smith WPtel: [address] [place], [place] [phone] Hospital follow up 05/16/2013 Patient Education: Patient Medication Summary Completed 05/16/2013 Appointment: Aicha Thompson WPtel: [address] [place], [place] [phone] Injection 05/10/2013 Patient Education: Patient Medication Summary [...] the office. 03/06/2013 Appointment: Valentina Smith WPtel: [address] [place], [place] [phone] Other 03/06/2013 Patient Education: Patient Medication Summary Completed 03/06/2013 Appointment: Aicha Thompson WPtel: [address] [place], [place] [phone] Nurse Visit 02/20/2013 Patient Education: Patient Medication Summary Completed 02/20/2013 Appointment: [phone] [place] Follow up 01/16/2013 Visit Plan: Joint [...] concerns. 12/26/2012 Appointment: [facility]ich[facility] Thompson [facility]Ptel: [phone] [place] Other 12/26/2012 Patient Education: Patient Medication Summary Completed 12/26/2012 Patient Education: Hypertension Completed 12/26/2012 Appointment: Aicha Thompson [facility]Ptel: [phone] Lab Draw 12/21/2012 Patient Education: Patient Medication [...] acute changes 11/21/2012 Appointment: Aicha Thompson WPtel: [facility] [place]note 2]5 [facility] [place] Follow up 11/21/2012 Patient Education: Patient Medication Summary Completed 11/21/2012 Patient Education: Hypertension Completed 11/21/2012 Appointment: Aicha Thompson WPtel: [facility] [place][note 2]5 [facility] [place] Injection 11/16/2012 Patient Education: Patient Medication Summary Completed 11/16/2012 Appointment: Aicha Thompson [facility]Ptel: [phone] [place] Injection 09/28/2012 Patient Education: Patient Medication Summary Completed 09/28/2012 Appointment: Aicha Thompson [facility]Ptel: [phone] [place] Injection 09/26/2012 Patient Education: Patient Medication Summary Completed 09/26/2012 Appointment: Aicha Thompson [facility]Ptel: [phone] [place] Injection 09/12/2012 Patient Education: Patient Medication Summary Completed 09/12/2012 Appointment: Aicha Thompson [facility]Ptel: [phone] [place] Injection 08/11/2012 Patient Education: Patient Medication [...] management sparingly. 07/13/2012 Appointment: Aicha Thompson WPtel: [address] [place] [address] Other 07/13/2012 Patient Education: Patient Medication Summary [...] in medications 05/26/2012 Appointment: Valentina Smith WPtel: [address] [place] [phone] Other 05/26/2012 Patient Education: Patient Medication Summary Completed 05/26/2012 Appointment: Valentina Smith WPtel: [address] [place], [place] [phone] Sick 03/15/2012 Appointment: Aicha Thompsontel: [phone] [facility] [place] Injection 03/02/2012 Patient Education: Patient Medication [...] the medication. 02/15/2012 Appointment: Valentina Smith WPtel: [phone] [id number] Other 02/15/2012 Patient Education: Patient Medication [...] to medications 01/13/2012 Appointment: Valentina Smith WPtel: [facility] [place]note 2]5 [facility] Other 01/13/2012 Patient Education: Patient Medication Summary Completed 01/13/2012 Appointment: Valentina Smith WPtel: [phone] [phone] Other 01/06/2012 Visit Plan: Asthma - chest xray and symbicort sample today. Patellofemoral syndrome- recommended physical therapy. Costochondritis - recommended pt to use antiinflammatories as able for treatment of rib/sternum irritation and for pt to call if her symptoms do not improve. 12/21/2011 Appointment: Aicha Thompson WPtel: [phone] [facility] Other 12/21/2011 Patient Education: Patient Medication Summary [...] office. 10/02/2011 Appointment: Valentina Smith WPtel: [phone] [phone] Other 10/02/2011 Patient Education: Patient Medication Summary Completed 10/02/2011 Visit Plan: Pain in joints-arms, elbows-recent fall- discussed natural and expected course of this diagnosis and to alert me if symptoms do not follow expected course, or if any worse. Patient verbalized understanding. Neck yxlj-dlvcdsg-vhxaujnau physical therapy-patient declined at this time-going to see the brownell operator this afternoon. B12 deficiency-B12 injection today in the office. 09/01/2011 Appointment: Valentina Smith WPtel: [phone] [phone] Other 09/01/2011 Patient Education: Patient [...] management sparingly. 08/03/2011 Appointment: Aicha Thompson WPtel: [facility] [place][note 2]5 [facility] Follow up 08/03/2011 Patient Education: Patient Medication [...] HER PAIN. 06/29/2011 Appointment: Aicha Thompson WPtel: [facility] [place][note 2]5 [facility] Follow up 06/29/2011 Patient Education: Patient Medication Summary Completed 06/29/2011 Appointment: [facility]ich[facility] Thompson [facility]Ptel: [phone] [facility] Other 06/24/2011 Visit Plan: Right knee pain, bilateral wrist pain-recent fall-discussed natural and expected course of this diagnosis and to alert me if symptoms do not follow expected course, or if any worse. Patient verbalized understanding. Recommend follow up with Ortho physician if pain persists. 06/22/2011 Appointment: Valent[facility] Smith [facility]Ptel: [phone] Other 06/22/2011 Patient Education: Patient Medication Summary Completed 06/22/2011 Visit Plan: Knee and Ankle pain and instability- recommend re-evaluation by an care management specialist at [facility] [address] [place] [address]. Pt has been recommended to go back to Dr. Corbin at [facility] as my office did not get [...] fibromyalgia. 06/11/2011 Appointment: Aicha Thompson [facility]Ptel: [phone] [facility] [place] Injection 06/11/2011 Appointment: Aicha Thompson WPtel: [phone] [place] Other 06/11/2011 Patient Education: Patient Medication Summary Completed 06/11/2011 Visit Plan: Knee and Ankle pain and instability- recommend evaluation by an care management specialist at [facility]. The [...] physical appearance. 03/11/2011 Appointment: Aicha Thompson WPtel: [facility] [place][note 2]5 [facility] Other 03/11/2011 Patient Education: Patient Medication Summary Completed 03/11/2011 Patient Education: .Amazing charts Diabetic meal planning guide Completed 03/11 Appointment: Aicha Thompson WPtel: [address] [place], [place] [phone] Injection 02/23/2011 Patient Education: Patient Medication Summary Completed 02/23/2011 Visit Plan: iliotibial band syndrome - continue with current treatment per brownell operator. I have recommend use of biofreeze to the right outer leg. I have given pt stretching exercises for home. Fibromyalgia - chronic - continue with exercise, heat, and prn pain medication. Knee pain - apparently resolved prior to her appointment today. No change in present management, call if pain returns. 02/12/2011 Appointment: Aicha Thompson WPtel: [address] [place], [place] [phone] Other 02/12/2011 Patient Education: Patient Medication Summary [...] appt with Dr Ibarra . Ulcer left pyio-gnqfgtsb-e/u in 10 days . Hemorrhoidal skin tag-no acute inflammation today -may use hemorrhoid cream as directed as needed-call with any concerns, bleeding, etc. sleep study -[facility] . Headaches-patient is not wearing her CPAP and i suspect this may be contributing to her headaches-will contact [facility] for a new sleep study Neck pain -spinal stenosis -[facility] has attempted to contact patient with no response from [facility]-I have instructed her to call them and get appt scheduled Dr Saunders -[facility] . Bilateral foot and [...] legs - [facility] in [place], [place]- fax # [phone] pt has been seen by security delivery specialist - need brace because of bilateral [...] the instructions given to her from her material crew supervisor and she is to call him [...] syndrome - continue with current treatment per brownell operator. I have recommend use of biofreeze to [...] and instability- recommend re- evaluation by an care management specialist at [facility] the [address] [place] [address]. Pt has been recommended to go back to Dr. Corbin at [facility] the [address] [place] [address] as my office did not get a [...] savella for treatment of fibromyalgia. REFER TO [facility] DX BILATERAL FOOT AND ANKLE PAIN . Bilateral foot pain-foot drop-patient getting AFOs-refer to podiatry for evaluation-wants to see someone in [facility] [...] medications. . Joint pain - again reassured kIer and her mom that there is no [...] the list of the neurologists that her claims collector has recommended and we would consider a [...] the list of the neurologists that her claims collector has recommended and we would consider a [...] if any worse. Patient verbalized understanding. Neck azdx-jntrxtg-mhjypupfc physical therapy-patient declined at this time- going to see the brownell operator this afternoon. B12 deficiency-B12 injection today in [...] today in the office. . Ulcer of gvaj-pdbdebi-vyekx instructions provided today and instructed patient to return as directed-keep wound clean and dry. Hemorrhoids-refill anusol suppositories and use as directed B12 deficiency-b12 injection today in the office Yqlnimhly-jqguiwdqxwum-xjmobjm injection today in the office-continue oral medications [...] pressure readings at home. . Generalized abd klef-GJC-hbihnv cipro/flagyl-culture urine-recommend patient follow up with Dr Grace for an appt if abdominal pain does not improve Low potassium-check labs . Generalized abd jjur-ZFR-moxvjl cipro/flagyl-culture urine-recommend patient follow up with Dr [...] for acute changes B12 injection . Neck jxll-ijxokry-luaxvmy to continue f/u with [facility]-her symptoms have [...] regimen-no changes in medications Dr. Ramey - [facility] . Hypertension - well controlled - continue [...] pain and instability- recommend evaluation by an care management specialist at [facility]. The [...] (may be called three old goats) at [employer] and home. . Hypertension - well controlled [...]
--- OUTSIDE RECORDS SUMMARY | 2018-08-03 08:14 | XMS REPORT | CCD ---
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 Name Role Phone PP Unavailable CCM Unavailable Summary Purpose Interface Exchange Insurance Providers Payer name Policy type / Coverage type Covered libertarian ID Effective Begin Date Effective End Date WPS Medicare Part B Medicare Part B [id number] 2013 Unknown [facility] Medicare Part B [id number] 2013 Unknown Family history Grandmother Diagnosis Age [...] status Unknown 01/29/[address]: 740467473 Never smoker 01/29/[address]: 112335 Currently drinks alcohol mixed drink before bed [...] sleep apnea Unknown Active 05/14/2011 Unknown 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 03/11/2011 Unknown Overweight [...] Active sleep apnea Unknown 05/14/2011 Active 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 03/11/2011 Active Overweight (BMI [...] Fill Instructions Valium 10 mg tablet RxNorm: 375288 1 Tablet(s) daily as needed 04/18/2018 06/16/2018 Active hydrocodone 10 mg-acetaminophen 325 mg tablet RxNorm: 019292 1 tab bid x 1 week then daily x 2 weeks then stop Tablet(s) PO Q6 for pain 04/1805/10/2018 Active diazepam 10 mg tablet RxNorm: 239899 1 Tablet(s) BID 04/18/2018 06/16/2018 Active Claritin-D 12 Hour 5 mg-120 mg tablet,extended release RxNorm: 9919345 Tablet(s) as needed TAKE 1 TABLET BY MOUTH TWICE DAILY NEEDED 201706/12/2018 Active tramadol 50 mg tablet RxNorm: 598000 1-2 Tablet(s) PO TID as needed 03/10/2018 04/08/2018 Inactive cyanocobalamin (vit B-12) 1,000 mcg/mL injection solution RxNorm: 320784 1 Milliliter(s) Inj 03/10/2018 03/10/2018 Inactive Seroquel 100 mg tablet RxNorm: 058169 1 TABLET(S) PO BID 201703/01/2019 Active TAKE 1 TABLET BY MOUTH TWICE DAILY hydrocodone 10 mg-acetaminophen 325 mg tablet RxNorm: 474202 1-2 Tablet(s) PO Q6 as needed for pain 02/21/2018 03/09/2018 Inactive Ventolin HFA 90 mcg/actuation aerosol inhaler RxNorm: 502292 1 OR 2 PUFF(S) INH Q6 PRN NEEDED 01/13/2018 07/11/2018 Active trazodone 100 mg tablet RxNorm: 073191 TABLET(S) TAKE 2 TABLETS BY MOUTH EVERY NIGHT AT BEDTIME 12/07/2017 09/02/2018 Active hydrocodone 10 mg-acetaminophen 325 mg tablet RxNorm: 299482 1-2 Tablet(s) PO Q6 as needed for pain 12/03/2017 12/25/2017 Inactive Ventolin HFA 90 mcg/actuation aerosol inhaler RxNorm: 408847 1 OR 2 PUFF(S) INH Q6 PRN NEEDED 11/26/2017 01/12/2018 Inactive Savella 100 mg tablet RxNorm: 959382 TABLET(S) PO TAKE 1 TABLET BY MOUTH DAILY 11/23/2017 No Stop Date Active Effexor XR 150 mg capsule,extended release RxNorm: 788609 1 CAPSULE(S) PO BID 1 CAPSULE(S) PO BID 11/23/2017 04/21/2018 Active TAKE 1 CAPSULE BY MOUTH TWICE DAILY Claritin-D 12 Hour 5 mg-120 mg tablet,extended release RxNorm: 4627940 Tablet(s) as needed TAKE 1 TABLET BY MOUTH TWICE DAILY NEEDED 201701/20/2018 Inactive diazepam 10 mg tablet RxNorm: 190675 Tablet(s) TAKE 1 TABLET BY MOUTH FOUR TIMES DAILY NEEDED 11/23/2017 03/09/2018 Inactive Valium 10 mg tablet RxNorm: 806303 1 Tablet(s) QID as needed 11/16/2017 01/14/2018 Inactive metoprolol tartrate 25 mg tablet RxNorm: 151312 TABLET(S) TABLET(S) 1/2 TABLET(S) PO BID TAKE 1/2 TABLET BY MOUTH TWICE DAILY 11/12/2017 No Stop Date Active pantoprazole 40 mg tablet,delayed release RxNorm: 261752 TAKE 1 TABLET BY MOUTH EVERY DAY 11/12/2017 05/10/2018 Active betamethasone dipropionate 0.05 % topical cream RxNorm: 801979 1 APPLICATION TOP BID 10/22/2017 11/04/2017 Inactive tramadol 50 mg tablet RxNorm: 868907 1-2 Tablet(s) PO TID as needed 10/20/2017 01/16/2018 Inactive prednisone 10 mg tablets in a dose pack RxNorm: 384979 1 Tablet(s) PO UD 10/19/2017 10/24/2017 Inactive 6-5-4-3-2-1 cyanocobalamin (vit B-12) 1,000 mcg/mL injection solution RxNorm: 848096 1 Milliliter(s) Inj 10/19/2017 10/19/2017 Inactive betamethasone dipropionate 0.05 % topical cream RxNorm: 296315 1 Application TOP BID 10/19/2017 10/21/2017 Inactive hydrocodone 10 mg-acetaminophen 325 mg tablet RxNorm: 770736 1-2 Tablet(s) PO Q6 as needed for pain 10/19/2017 11/10/2017 Inactive Effexor XR 150 mg capsule,extended release RxNorm: 301570 1 Capsule(s) PO BID 1 CAPSULE(S) PO BID 10/19/2017 11/22/2017 Inactive TAKE 1 CAPSULE BY MOUTH TWICE DAILY prednisone 5 mg tablet RxNorm: 822559 1 Tablet(s) PO UD 2017 No Stop Date Active Cipro 500 mg tablet RxNorm: 755211 1 Tablet(s) PO BID 201709/26/2017 Inactive Flagyl 500 mg tablet RxNorm: 481518 1 Tablet(s) PO TID 201709/26/2017 Inactive prednisone 10 mg tablet RxNorm: 696604 1 Tablet(s) PO UD 201709/16/2017 Inactive 2 tabs daily x 3 days 1 tab daily x 3 daily then resume usual 5mg daily hydrocodone 10 mg-acetaminophen 325 mg tablet RxNorm: 045797 1-2 Tablet(s) PO Q6 as needed for pain 09/10/2017 10/02/2017 Inactive Savella 100 mg tablet RxNorm: 519602 TABLET(S) PO TAKE 1 TABLET BY MOUTH DAILY 08/31/2017 No Stop Date Active cyanocobalamin (vit B-12) 1,000 mcg/mL injection solution RxNorm: 174411 1 Milliliter(s) Inj 08/19/2017 08/19/2017 Inactive pantoprazole 40 mg tablet,delayed release RxNorm: 155265 TAKE 1 TABLET BY MOUTH EVERY DAY 08/17/2017 11/11/2017 Inactive trazodone 100 mg tablet RxNorm: 782175 TABLET(S) TAKE 2 TABLETS BY MOUTH EVERY NIGHT AT BEDTIME 08/17/2017 12/06/2017 Inactive Ventolin HFA 90 mcg/actuation aerosol inhaler RxNorm: 113899 1 OR 2 PUFF(S) INH Q6 PRN NEEDED 08/11/2017 01/07/2018 Inactive Advair Diskus 250 mcg-50 mcg/dose powder for inhalation RxNorm: 5994725 1 Puff(s) INH BID 08/11/2017 12/08/2017 Inactive Advair Diskus 250 mcg-50 mcg/dose powder for inhalation RxNorm: 8002686 1 PUFF(S) INH BID 08/11/2017 11/08/2017 Inactive Ventolin HFA 90 mcg/actuation aerosol inhaler RxNorm: 544853 1 OR 2 PUFF(S) INH Q6 PRN NEEDED 08/11/2017 11/25/2017 Inactive hydrocodone 10 mg-acetaminophen 325 mg tablet RxNorm: 781897 1-2 Tablet(s) PO Q6 as needed for pain 08/03/2017 08/25/2017 Inactive tramadol 50 mg tablet RxNorm: 392474 1-2 Tablet(s) PO TID as needed 07/26/2017 09/22/2017 Inactive Valium 10 mg tablet RxNorm: 225924 1 Tablet(s) QID as needed 07/09/2017 09/06/2017 Inactive Effexor XR 150 mg capsule,extended release RxNorm: 251842 Capsule(s) 1 CAPSULE(S) PO BID 07/07/2017 10/18/2017 Inactive TAKE 1 CAPSULE BY MOUTH TWICE DAILY metoprolol tartrate 25 mg tablet RxNorm: 718095 Tablet(s) TABLET(S) 1/2 TABLET(S) PO BID TAKE 1/2 TABLET BY MOUTH TWICE DAILY 07/07/2017 11/11/2017 Inactive diazepam 10 mg tablet RxNorm: 595872 Tablet(s) TAKE 1 TABLET BY MOUTH FOUR TIMES DAILY NEEDED 07/07/2017 08/02/2017 Inactive cyanocobalamin (vit B-12) 1,000 mcg/mL injection solution RxNorm: 062380 1 Milliliter(s) Inj 07/06/2017 07/06/2017 Inactive tramadol 50 mg tablet RxNorm: 362068 1-2 Tablet(s) PO TID as needed 06/21/2017 09/17/2017 Inactive hydrocodone 10 mg-acetaminophen 325 mg tablet RxNorm: 236892 1-2 Tablet(s) PO Q6 as needed for pain 06/17/2017 07/09/2017 Inactive cyclobenzaprine 10 mg tablet RxNorm: 041555 TAKE 1 TABLET BY MOUTH THREE TIMES DAILY NEEDED FOR MUSCLE SPASMS 06/08/2017 08/31/2018 Active Lipitor 20 mg tablet RxNorm: 039090 1 TABLET(S) PO DAILY 201706/02/2018 Active TAKE ONE TABLET BY MOUTH EVERY NIGHT AT BEDTIME Claritin-D 12 Hour 5 mg-120 mg tablet,extended release RxNorm: 1986766 Tablet(s) as needed TAKE 1 TABLET BY MOUTH TWICE DAILY NEEDED 201709/04/2017 Inactive trazodone 100 mg tablet RxNorm: 487358 TABLET(S) TAKE 2 TABLETS BY MOUTH EVERY NIGHT AT BEDTIME 05/17/2017 08/14/2017 Inactive cyclobenzaprine 5 mg tablet RxNorm: 100130 Tablet(s) PO TAKE 1 TABLET BY MOUTH THREE TIMES DAILY NEEDED FOR MUSCLE SPASMS (New dose has not been sent to pharmacy) 05/11/2017 No Stop Date Active Valium 5 mg tablet RxNorm: 766744 1 Tablet(s) PO QID as needed (New dose has not been sent to pharmacy) 05/11/2017 No Stop Date Active diazepam 10 mg tablet RxNorm: 640273 TAKE 1 TABLET BY MOUTH FOUR TIMES DAILY NEEDED 04/28/2017 05/27/2017 Inactive hydrocodone 10 mg-acetaminophen 325 mg tablet RxNorm: 028913 1-2 Tablet(s) PO Q6 as needed for pain 04/27/2017 05/19/2017 Inactive cyanocobalamin (vit B-12) 1,000 mcg/mL injection solution RxNorm: 661319 1 Milliliter(s) Inj 04/27/2017 04/27/2017 Inactive hydrocodone 10 mg-acetaminophen 325 mg tablet RxNorm: 336886 1-2 Tablet(s) PO Q6 as needed for pain 03/17/2017 04/08/2017 Inactive Seroquel 100 mg tablet RxNorm: 227126 1 TABLET(S) PO BID 201603/06/2018 Inactive TAKE 1 TABLET BY MOUTH TWICE DAILY Valium 10 mg tablet RxNorm: 371049 1 Tablet(s) QID as needed 03/05/2017 05/03/2017 Inactive Claritin-D 12 Hour 5 mg-120 mg tablet,extended release RxNorm: 1188917 Tablet(s) as needed TAKE 1 TABLET BY MOUTH TWICE DAILY NEEDED 201604/13/2018 Inactive pantoprazole 40 mg tablet,delayed release RxNorm: 509690 TAKE 1 TABLET BY MOUTH EVERY DAY 02/26/2017 08/16/2017 Inactive tramadol 50 mg tablet RxNorm: 803965 1-2 Tablet(s) PO TID as needed 02/17/2017 05/17/2017 Inactive hydrocodone 10 mg-acetaminophen 325 mg tablet RxNorm: 542568 1-2 Tablet(s) PO Q6 as needed for pain 02/17/2017 03/11/2017 Inactive Valium 10 mg tablet RxNorm: 444288 1 Tablet(s) QID as needed 02/02/2017 03/03/2017 Inactive (Response to an electronic controlled substance refill request - RxReferenceNumber: [id number]|1|0|1) nystatin 100,000 unit/gram topical powder RxNorm: 797496 1 APPLICATION TOP QID UNTIL HEALED 01/21/2017 No Stop Date Active Advair Diskus 250 mcg-50 mcg/dose powder for inhalation RxNorm: 6205865 1 Puff(s) INH BID 01/21/2017 05/20/2017 Inactive hydrocodone 10 mg-acetaminophen 325 mg tablet RxNorm: 919137 1-2 Tablet(s) PO Q6 as needed for pain 01/21/2017 02/11/2017 Inactive metoprolol tartrate 25 mg tablet RxNorm: 508361 TABLET(S) 1/2 TABLET(S) PO BID TAKE 1/2 TABLET BY MOUTH TWICE DAILY 01/18/2017 07/06/2017 Inactive Effexor XR 150 mg capsule,extended release RxNorm: 811065 1 CAPSULE(S) PO BID 01/11/2017 07/06/2017 Inactive TAKE 1 CAPSULE BY MOUTH TWICE DAILY Effexor XR 150 mg capsule,extended release RxNorm: 595248 1 Capsule(s) PO BID 1 CAPSULE(S) PO BID 01/08/2017 07/06/2017 Inactive TAKE 1 CAPSULE BY MOUTH TWICE DAILY nystatin 100,000 unit/gram topical powder RxNorm: 885640 1 APPLICATION TOP QID UNTIL HEALED 12/17/2016 01/20/2017 Inactive hydrocodone 10 mg-acetaminophen 325 mg tablet RxNorm: 900059 1-2 Tablet(s) PO Q6 as needed for pain 12/17/2016 01/07/2017 Inactive Claritin-D 12 Hour 5 mg-120 mg tablet,extended release RxNorm: 3364822 Tablet(s) as needed TAKE 1 TABLET BY MOUTH TWICE DAILY NEEDED 201602/12/2017 Inactive Lipitor 20 mg tablet RxNorm: 475078 1 TABLET(S) PO DAILY 201606/07/2017 Inactive TAKE ONE TABLET BY MOUTH EVERY NIGHT AT BEDTIME Advair Diskus 250 mcg-50 mcg/dose powder for inhalation RxNorm: 8301839 1 Puff(s) INH BID 11/26/2016 01/20/2017 Inactive Valium 10 mg tablet RxNorm: 058591 1 Tablet(s) QID as needed 11/24/2016 01/22/2017 Inactive (Response to an electronic controlled substance refill request - RxReferenceNumber: [id number]|1|0|1) cyanocobalamin (vit B-12) 1,000 mcg/mL injection solution RxNorm: 442444 1 Milliliter(s) Inj 11/17/2016 11/17/2016 Inactive tramadol 50 mg tablet RxNorm: 760783 1-2 Tablet(s) PO TID as needed 11/06/2016 10/19/2017 Inactive hydrocodone 10 mg-acetaminophen 325 mg tablet RxNorm: 461441 1-2 Tablet(s) PO Q6 as needed for pain 11/06/2016 11/27/2016 Inactive nystatin 100,000 unit/gram topical powder RxNorm: 756925 1 Application TOP QID until healed 10/27/2016 12/16/2016 Inactive cyanocobalamin (vit B-12) 1,000 mcg/mL injection solution RxNorm: 333665 1 Milliliter(s) Inj 10/12/2016 10/12/2016 Inactive trazodone 100 mg tablet RxNorm: 599213 Tablet(s) TAKE 2 TABLETS BY MOUTH EVERY NIGHT AT BEDTIME 09/24/2016 03/22/2017 Inactive Valium 10 mg tablet RxNorm: 599805 1 Tablet(s) QID as needed 09/24/2016 11/22/2016 Inactive (Response to an electronic controlled substance refill request - RxReferenceNumber: [id number]|1|0|1) Savella 100 mg tablet RxNorm: 083491 TABLET(S) PO TAKE 1 TABLET BY MOUTH DAILY 09/18/2016 08/30/2017 Inactive pantoprazole 40 mg tablet,delayed release RxNorm: 840586 TAKE 1 TABLET BY MOUTH EVERY DAY 09/18/2016 02/25/2017 Inactive cyanocobalamin (vit B-12) 1,000 mcg/mL injection solution RxNorm: 990221 1 Milliliter(s) Inj 09/11/2016 09/11/2016 Inactive hydrocodone 10 mg-acetaminophen 325 mg tablet RxNorm: 977894 1-2 Tablet(s) PO Q6 as needed for pain 08/24/2016 11/05/2016 Inactive (Response to an electronic controlled substance refill request - RxReferenceNumber: [id number]|1|0|1) Claritin-D 12 Hour 5 mg-120 mg tablet,extended release RxNorm: 8681933 Tablet(s) TAKE 1 TABLET BY MOUTH TWICE DAILY NEEDED 08/13/2016 04/13/2018 Inactive tramadol 50 mg tablet RxNorm: 575334 1-2 Tablet(s) PO TID PRN as needed 08/11/2016 11/05/2016 Inactive metoprolol tartrate 25 mg tablet RxNorm: 810436 TABLET(S) 1/2 TABLET(S) PO BID TAKE 1/2 TABLET BY MOUTH TWICE DAILY 08/10/2016 01/17/2017 Inactive pantoprazole 40 mg tablet,delayed release RxNorm: 364551 TAKE 1 TABLET BY MOUTH EVERY DAY 08/10/2016 11/05/2016 Inactive Savella 100 mg tablet RxNorm: 458308 TABLET(S) PO TAKE 1 TABLET BY MOUTH DAILY 08/10/2016 11/05/2016 Inactive Ventolin HFA 90 mcg/actuation aerosol inhaler RxNorm: 688405 1 OR 2 PUFF(S) INH Q6 PRN NEEDED 08/07/2016 02/02/2017 Inactive Diflucan 150 mg tablet RxNorm: 465311 1 Tablet(s) PO daily 08/201608/13/2016 Inactive nystatin 100,000 unit/mL oral suspension RxNorm: 142919 5 Milliliter(s) PO QID 08/07/2016 08/16/2016 Inactive hydrocodone 10 mg-acetaminophen 325 mg tablet RxNorm: 651554 1-2 Tablet(s) PO Q6 as needed for pain 08/04/2016 08/23/2016 Inactive (Response to an electronic controlled substance refill request - RxReferenceNumber: [id number]|1|0|1) Valium 10 mg tablet RxNorm: 663746 1 Tablet(s) QID as needed 07/20/2016 09/17/2016 Inactive (Response to an electronic controlled substance refill request - RxReferenceNumber: [id number]|1|0|1) tramadol 50 mg tablet RxNorm: 327481 1-2 Tablet(s) PO TID PRN as needed 07/15/2016 11/05/2016 Inactive ok to give 1 month uyobdm=272 tablets cyanocobalamin (vit B-12) 1,000 mcg/mL injection solution RxNorm: 636363 Milliliter(s) Inj 07/03/2016 07/03/2016 Inactive Seroquel 100 mg tablet RxNorm: 585464 1 TABLET(S) PO BID 201603/15/2017 Inactive TAKE 1 TABLET BY MOUTH TWICE DAILY hydrocodone 10 mg-acetaminophen 325 mg tablet RxNorm: 243978 1-2 Tablet(s) PO Q6 as needed for pain 06/26/2016 08/03/2016 Inactive (Response to an electronic controlled substance refill request - RxReferenceNumber: [id number]|1|0|1) Valium 10 mg tablet RxNorm: 572030 1 Tablet(s) QID as needed 05/11/2016 07/09/2016 Inactive (Response to an electronic controlled substance refill request - RxReferenceNumber: [id number]|1|0|1) tramadol 50 mg tablet RxNorm: 803792 1-2 Tablet(s) PO TID PRN as needed 05/11/2016 07/08/2016 Inactive ok to give 1 month rctbwc=956 tablets cyclobenzaprine 10 mg tablet RxNorm: 167414 TAKE 1 TABLET BY MOUTH THREE TIMES DAILY NEEDED FOR MUSCLE SPASMS 05/11/2016 05/10/2017 Inactive hydrocodone 10 mg-acetaminophen 325 mg tablet RxNorm: 594932 1-2 Tablet(s) PO Q6 as needed for pain 05/06/2016 06/25/2016 Inactive (Response to an electronic controlled substance refill request - RxReferenceNumber: [id number]|1|0|1) cyanocobalamin (vit B-12) 1,000 mcg/mL injection solution RxNorm: 615892 1 Milliliter(s) Inj 04/20/2016 04/20/2016 Inactive hydrocodone 10 mg-acetaminophen 325 mg tablet RxNorm: 482170 1-2 Tablet(s) PO Q6 as needed for pain 04/03/2016 05/05/2016 Inactive (Response to an electronic controlled substance refill request - RxReferenceNumber: [id number]|1|0|1) pantoprazole 40 mg tablet,delayed release RxNorm: 756800 TAKE 1 TABLET BY MOUTH EVERY DAY 04/02/2016 08/09/2016 Inactive Claritin-D 12 Hour 5 mg-120 mg tablet,extended release RxNorm: 6530195 Tablet(s) TAKE 1 TABLET BY MOUTH TWICE DAILY NEEDED 04/02/2016 11/05/2016 Inactive hydrocodone 10 mg-acetaminophen 325 mg tablet RxNorm: 906832 1-2 Tablet(s) PO Q6 as needed for pain 03/12/2016 04/02/2016 Inactive (Response to an electronic controlled substance refill request - RxReferenceNumber: [id number]|1|0|1) Effexor XR 150 mg capsule,extended release RxNorm: 079152 1 CAPSULE(S) PO BID 03/05/2016 01/07/2017 Inactive TAKE 1 CAPSULE BY MOUTH TWICE DAILY Ventolin HFA 90 mcg/actuation aerosol inhaler RxNorm: 736729 1 OR 2 PUFF(S) INH Q6 PRN NEEDED 02/19/2016 08/06/2016 Inactive cyanocobalamin (vit B-12) 1,000 mcg/mL injection solution RxNorm: 631819 Milliliter(s) Inj 02/13/2016 02/13/2016 Inactive hydrocodone 10 mg-acetaminophen 325 mg tablet RxNorm: 620506 1-2 Tablet(s) PO Q6 as needed for pain 02/05/2016 03/11/2016 Inactive (Response to an electronic controlled substance refill request - RxReferenceNumber: [id number]|1|0|1) Valium 10 mg tablet RxNorm: 948787 1 Tablet(s) QID as needed 02/05/2016 05/04/2016 Inactive (Response to an electronic controlled substance refill request - RxReferenceNumber: [id number]|1|0|1) tramadol 50 mg tablet RxNorm: 432042 1-2 Tablet(s) PO TID PRN as needed 02/05/2016 11/05/2016 Inactive ok to give 1 month bibsfg=658 tablets hydrocodone 10 mg-acetaminophen 325 mg tablet RxNorm: 161812 1-2 Tablet(s) PO Q6 as needed for pain 01/08/2016 02/04/2016 Inactive (Response to an electronic controlled substance refill request - RxReferenceNumber: [id number]|1|0|1) metoprolol tartrate 25 mg tablet RxNorm: 230217 Tablet(s) 1/2 TABLET(S) PO BID TAKE 1/2 TABLET BY MOUTH TWICE DAILY 01/08/2016 08/09/2016 Inactive Symbicort 160 mcg-4.5 mcg/actuation HFA aerosol inhaler RxNorm: 4670552 2 INH BID 01/03/2016 11/25/2016 Inactive Symbicort 160 mcg-4.5 mcg/actuation HFA aerosol inhaler RxNorm: 9355723 1 INH daily 01/03/2016 01/02/2016 Inactive Lipitor 20 mg tablet RxNorm: 539650 1 TABLET(S) PO DAILY 201506/26/2016 Inactive TAKE ONE TABLET BY MOUTH EVERY NIGHT AT BEDTIME trazodone 100 mg tablet RxNorm: 301784 TAKE 2 TABLETS BY MOUTH EVERY NIGHT AT BEDTIME 12/30/2015 09/23/2016 Inactive Savella 100 mg tablet RxNorm: 302691 TABLET(S) PO TAKE 1 TABLET BY MOUTH DAILY 12/30/2015 08/09/2016 Inactive hydrocodone 10 mg-acetaminophen 325 mg tablet RxNorm: 761819 1-2 Tablet(s) PO Q6 as needed for pain 12/12/2015 01/07/2016 Inactive (Response to an electronic controlled substance refill request - RxReferenceNumber: [id number]|1|0|1) cyanocobalamin (vit B-12) 1,000 mcg/mL injection solution RxNorm: 362938 1 Milliliter(s) Inj 12/02/2015 12/02/2015 Inactive hydrocodone 10 mg-acetaminophen 325 mg tablet RxNorm: 140506 1-2 Tablet(s) PO Q6 as needed for pain 12/02/2015 12/11/2015 Inactive (Response to an electronic controlled substance refill request - RxReferenceNumber: [id number]|1|0|1) Claritin-D 12 Hour 5 mg-120 mg tablet,extended release RxNorm: 0026049 Tablet(s) TAKE 1 TABLET BY MOUTH TWICE DAILY 11/11/2015 11/10/2015 Inactive Claritin-D 12 Hour 5 mg-120 mg tablet,extended release RxNorm: 5688877 Tablet(s) TAKE 1 TABLET BY MOUTH TWICE DAILY NEEDED 11/11/2015 01/06/2016 Inactive tramadol 50 mg tablet RxNorm: 142352 1-2 Tablet(s) PO TID PRN as needed 11/05/2015 11/05/2016 Inactive ok to give 1 month kcqdsh=926 tablets Valium 10 mg tablet RxNorm: 195700 1 Tablet(s) QID as needed 11/05/2015 02/02/2016 Inactive (Response to an electronic controlled substance refill request - RxReferenceNumber: [id number]|1|0|1) cyanocobalamin (vit B-12) 1,000 mcg/mL injection solution RxNorm: 837480 1 Milliliter(s) Inj 10/29/2015 10/29/2015 Inactive hydrocodone 10 mg-acetaminophen 325 mg tablet RxNorm: 329426 1-2 Tablet(s) PO Q6 as needed for pain 10/28/2015 12/01/2015 Inactive (Response to an electronic controlled substance refill request - RxReferenceNumber: [id number]|1|0|1) pantoprazole 40 mg tablet,delayed release RxNorm: 608894 TAKE 1 TABLET BY MOUTH EVERY DAY 10/08/2015 04/01/2016 Inactive Seroquel 100 mg tablet RxNorm: 431349 1 TABLET(S) PO BID 201506/29/2016 Inactive TAKE 1 TABLET BY MOUTH TWICE DAILY trazodone 100 mg tablet RxNorm: 306406 TAKE 2 TABLETS BY MOUTH EVERY NIGHT AT BEDTIME 10/08/2015 10/01/2016 Inactive Lipitor 20 mg tablet RxNorm: 667603 1 TABLET(S) PO DAILY 201504/04/2016 Inactive TAKE ONE TABLET BY MOUTH EVERY NIGHT AT BEDTIME hydrocodone 10 mg-acetaminophen 325 mg tablet RxNorm: 406613 1-2 Tablet(s) PO Q6 as needed for pain 09/19/2015 10/18/2015 Inactive (Response to an electronic controlled substance refill request - RxReferenceNumber: [id number]|1|0|1) Valium 10 mg tablet RxNorm: 584483 1 Tablet(s) QID as needed 09/05/2015 11/03/2015 Inactive (Response to an electronic controlled substance refill request - RxReferenceNumber: [id number]|1|0|1) Savella 100 mg tablet RxNorm: 214493 Tablet(s) PO TAKE 1 TABLET BY MOUTH DAILY 07/19/2015 11/05/2016 Inactive Zithromax Z-Lauro 250 mg tablet RxNorm: 877251 1 Tablet(s) PO UD 07/12/2015 11/04/2015 Inactive z lauro hydrocodone 10 mg-acetaminophen 325 mg tablet RxNorm: 727241 1-2 Tablet(s) PO Q6 as needed for pain 07/10/2015 08/08/2015 Inactive (Response to an electronic controlled substance refill request - RxReferenceNumber: [id number]|1|0|1) tramadol 50 mg tablet RxNorm: 816314 1-2 Tablet(s) PO TID PRN as needed 07/04/2015 11/05/2016 Inactive ok to give 1 month rfwcck=547 tablets hydrocodone 10 mg-acetaminophen 325 mg tablet RxNorm: 161295 1-2 Tablet(s) PO Q6 as needed for pain 06/10/2015 07/09/2015 Inactive (Response to an electronic controlled substance refill request - RxReferenceNumber: [id number]|1|0|1) cyanocobalamin (vit B-12) 1,000 mcg/mL injection solution RxNorm: 946652 Milliliter(s) Inj 06/10/2015 06/10/2015 Inactive pantoprazole 40 mg tablet,delayed release RxNorm: 167176 TABLET(S) PO TAKE 1 TABLET BY MOUTH EVERY DAY 06/10/201511/05 Inactive pantoprazole 40 mg tablet,delayed release RxNorm: 547778 Tablet(s) PO TAKE 1 TABLET BY MOUTH EVERY DAY 06/06/201511/05 Inactive tramadol 50 mg tablet RxNorm: 839379 1-2 Tablet(s) PO TID PRN as needed 05/29/2015 06/27/2015 Inactive ok to give 1 month sbucyn=838 tablets tramadol 50 mg tablet RxNorm: 851148 1-2 Tablet(s) PO Q6 as needed 05/29/2015 06/09/2015 Inactive Valium 10 mg tablet RxNorm: 952142 1 Tablet(s) QID as needed 05/08/2015 07/06/2015 Inactive (Response to an electronic controlled substance refill request - RxReferenceNumber: [id number]|1|0|1) cyclobenzaprine 10 mg tablet RxNorm: 046488 TAKE 1 TABLET BY MOUTH THREE TIMES DAILY NEEDED FOR MUSCLE SPASMS 05/08/2015 05/10/2016 Inactive Effexor XR 150 mg capsule,extended release RxNorm: 045481 1 Capsule(s) PO BID 1 CAPSULE(S) PO BID 05/08/2015 11/05/2016 Inactive TAKE 1 CAPSULE BY MOUTH TWICE DAILY hydrocodone 10 mg-acetaminophen 325 mg tablet RxNorm: 751393 1-2 Tablet(s) PO Q6 as needed for pain 05/08/2015 06/06/2015 Inactive (Response to an electronic controlled substance refill request - RxReferenceNumber: [id number]|1|0|1) metoprolol tartrate 25 mg tablet RxNorm: 819828 1/2 TABLET(S) PO BID TAKE 1/2 TABLET BY MOUTH TWICE DAILY 05/06/201507/2015 Inactive Claritin-D 12 Hour 5 mg-120 mg tablet,extended release RxNorm: 0915198 TAKE 1 TABLET BY MOUTH TWICE DAILY 04/16/201506/2016 Inactive hydrocodone 10 mg-acetaminophen 325 mg tablet RxNorm: 173330 1-2 Tablet(s) PO Q6 as needed for pain 04/15/2015 05/07/2015 Inactive (Response to an electronic controlled substance refill request - RxReferenceNumber: [id number]|1|0|1) pantoprazole 40 mg tablet,delayed release RxNorm: 130226 TABLET(S) PO TAKE 1 TABLET BY MOUTH EVERY DAY 04/08/201506/06 Inactive hydrocodone 10 mg-acetaminophen 325 mg tablet RxNorm: 868543 1 Tablet(s) PO Q4 PRN TAKE 1-2 TABLETS BY MOUTH EVERY 6 HOURS NEEDED FOR PAIN 03/14/2015 04/12/2015 Inactive (Response to an electronic controlled substance refill request - RxReferenceNumber: [id number]|1|0|1) diazepam 10 mg tablet RxNorm: 289032 1 Tablet(s) TID TAKE 1 TABLET BY MOUTH THREE TIMES DAILY NEEDED 02/08/20152016 Inactive (Response to an electronic controlled substance refill request - RxReferenceNumber: [id number]|1|0|1) Effexor XR 150 mg capsule,extended release RxNorm: 729181 1 CAPSULE(S) PO BID 02/07/2015 05/07/2015 Inactive TAKE 1 CAPSULE BY MOUTH TWICE DAILY cyclobenzaprine 10 mg tablet RxNorm: 933818 TAKE 1 TABLET BY MOUTH THREE TIMES DAILY NEEDED FOR MUSCLE SPASMS 02/07/2015 05/07/2015 Inactive pantoprazole 40 mg tablet,delayed release RxNorm: 884429 TABLET(S) PO TAKE 1 TABLET BY MOUTH EVERY DAY 02/07/201504/07 Inactive hydrocodone 10 mg-acetaminophen 325 mg tablet RxNorm: 336722 1 Tablet(s) PO Q4 PRN TAKE 1-2 TABLETS BY MOUTH EVERY 6 HOURS NEEDED FOR PAIN 01/25/2015 02/23/2015 Inactive (Response to an electronic controlled substance refill request - RxReferenceNumber: [id number]|1|0|1) Bactroban Nasal 2 % ointment RxNorm: 580579 1 Application NASAL BID 01/10/2015 01/10/2015 Inactive mupirocin 2 % topical ointment RxNorm: 740287 1 Application TOP TID 1 APPLICATION TOP PRN 01/10/2015 01/19/2015 Inactive disregard order for nasal ointment , use on left knee trazodone 100 mg tablet RxNorm: 132744 TAKE 2 TABLETS BY MOUTH EVERY NIGHT AT BEDTIME 01/08/2015 10/07/2015 Inactive Seroquel 100 mg tablet RxNorm: 075369 1 TABLET(S) PO BID 201410/04/2015 Inactive TAKE 1 TABLET BY MOUTH TWICE DAILY cyclobenzaprine 10 mg tablet RxNorm: 558232 TAKE 1 TABLET BY MOUTH THREE TIMES DAILY NEEDED FOR MUSCLE SPASMS 01/08/2015 02/06/2015 Inactive hydrocodone 10 mg-acetaminophen 325 mg tablet RxNorm: 140357 1 Tablet(s) PO Q4 PRN TAKE 1-2 TABLETS BY MOUTH EVERY 6 HOURS NEEDED FOR PAIN 12/21/2014 01/19/2015 Inactive (Response to an electronic controlled substance refill request - RxReferenceNumber: [id number]|1|0|1) pantoprazole 40 mg tablet,delayed release RxNorm: 974468 TABLET(S) PO TAKE 1 TABLET BY MOUTH EVERY DAY 12/13/201402/06 Inactive Lipitor 20 mg tablet RxNorm: 095934 1 Tablet(s) PO daily 201409/08/2015 Inactive TAKE ONE TABLET BY MOUTH EVERY NIGHT AT BEDTIME Valium 10 mg tablet RxNorm: 992263 1 Tablet(s) QID as needed 12/12/2014 02/09/2015 Inactive (Response to an electronic controlled substance refill request - RxReferenceNumber: [id number]|1|0|1) hydrocodone 10 mg-acetaminophen 325 mg tablet RxNorm: 200230 Tablet(s) TAKE 1-2 TABLETS BY MOUTH EVERY 6 HOURS NEEDED FOR PAIN 12/12/2014 12/20/2014 Inactive ( Response to an electronic controlled substance refill request - RxReferenceNumber: [id number]|1|0|1) Lipitor 20 mg tablet RxNorm: 353404 1 Tablet(s) PO daily 201412/12/2014 Inactive TAKE ONE TABLET BY MOUTH EVERY NIGHT AT BEDTIME pantoprazole 40 mg tablet,delayed release RxNorm: 401936 TABLET(S) PO TAKE 1 TABLET BY MOUTH EVERY DAY 12/06/201411/05 Inactive Savella 100 mg tablet RxNorm: 283425 Tablet(s) PO TAKE 1 TABLET BY MOUTH DAILY 12/06/2014 07/18/2015 Inactive Lipitor 20 mg tablet RxNorm: 264626 1 Tablet(s) PO daily 201412/10/2014 Inactive TAKE ONE TABLET BY MOUTH EVERY NIGHT AT BEDTIME Valium 10 mg tablet RxNorm: 693630 TAKE 1 TABLET BY MOUTH FOUR TIMES DAILY NEEDED FOR ANXIETY 12/06/2014 12/11/2014 Inactive Valium 10 mg tablet RxNorm: 670113 1 Tablet(s) QID as needed 11/13/2014 12/11/2014 Inactive (Response to an electronic controlled substance refill request - RxReferenceNumber: [id number]|1|0|1) hydrocodone 10 mg-acetaminophen 325 mg tablet RxNorm: 544407 Tablet(s) TAKE 1-2 TABLETS BY MOUTH EVERY 6 HOURS NEEDED FOR PAIN 11/13/2014 12/11/2014 Inactive ( Response to an electronic controlled substance refill request - RxReferenceNumber: [id number]|1|0|1) hydrocodone 10 mg-acetaminophen 325 mg tablet RxNorm: 589613 Tablet(s) TAKE 1-2 TABLETS BY MOUTH EVERY 6 HOURS NEEDED FOR PAIN 11/08/2014 11/12/2014 Inactive ( Response to an electronic controlled substance refill request - RxReferenceNumber: [id number]|1|0|1) Valium 10 mg tablet RxNorm: 641339 1 Tablet(s) QID as needed 11/08/2014 11/12/2014 Inactive (Response to an electronic controlled substance refill request - RxReferenceNumber: [id number]|1|0|1) metoprolol tartrate 25 mg tablet RxNorm: 162090 1/2 TABLET(S) PO BID TAKE 1/2 TABLET BY MOUTH TWICE DAILY 11/08/2014 Inactive Valium 10 mg tablet RxNorm: 705467 TAKE 1 TABLET BY MOUTH FOUR TIMES DAILY NEEDED FOR ANXIETY 11/06/2014 12/09/2014 Inactive Vitamin D2 50,000 unit capsule RxNorm: 742215 1 Capsule(s) PO QW 10/24/2014 10/23/2014 Inactive Vitamin D2 50,000 unit capsule RxNorm: 300252 1 Capsule(s) PO QW x 8 weeks 10/24/2014 12/22/2014 Inactive Entyvio 300 mg intravenous solution RxNorm: 4093941 IV 2014 No Stop Date Active hydrocodone 10 mg-acetaminophen 325 mg tablet RxNorm: 133586 Tablet(s) TAKE 1-2 TABLETS BY MOUTH EVERY 6 HOURS NEEDED FOR PAIN 10/05/2014 11/03/2014 Inactive ( Response to an electronic controlled substance refill request - RxReferenceNumber: [id number]|1|0|1) Valium 10 mg tablet RxNorm: 831922 TAKE 1 TABLET BY MOUTH EVERY 8 HOURS NEEDED 10/05/2014 11/03/2014 Inactive (Response to an electronic controlled substance refill request - RxReferenceNumber: [id number]|1|0|1) Valium 10 mg tablet RxNorm: 972705 1 Tablet(s) PO QID as needed TAKE 1 TABLET BY MOUTH 10/05/2014 11/05/2016 Inactive (Response to an electronic controlled substance refill request - RxReferenceNumber: [id number]|1|0|1) Valium 10 mg tablet RxNorm: 804870 TAKE 1 TABLET BY MOUTH THREE TIMES DAILY NEEDED 09/04/2014 10/03/2014 Inactive (Response to an electronic controlled substance refill request - RxReferenceNumber: [id number]|1|0|1) Valium 10 mg tablet RxNorm: 312260 1 Tablet(s) PO Q8 PRN as needed 09/04/2014 11/09/2014 Inactive hydrocodone 10 mg-acetaminophen 325 mg tablet RxNorm: 031863 Tablet(s) TAKE 1-2 TABLETS BY MOUTH EVERY 6 HOURS NEEDED FOR PAIN 08/27/2014 09/25/2014 Inactive ( Response to an electronic controlled substance refill request - RxReferenceNumber: [id number]|1|0|1) Claritin-D 12 Hour 5 mg-120 mg tablet,extended release RxNorm: 5073172 1 Tablet(s ) PO BID 08/27/2014 04/16/2015 Inactive Ventolin HFA 90 mcg/actuation aerosol inhaler RxNorm: 888140 1 or 2 Puff(s) INH Q6 PRN as needed 08/09/2014 03/06/2015 Inactive pantoprazole 40 mg tablet,delayed release RxNorm: 613288 Tablet(s) PO TAKE 1 TABLET BY MOUTH EVERY DAY 08/09/201408/08 Inactive pantoprazole 40 mg tablet,delayed release RxNorm: 619986 TAKE 1 TABLET BY MOUTH EVERY DAY 08/09/2014 11/05/2016 Inactive diazepam 10 mg tablet RxNorm: 665603 TAKE 1 TABLET BY MOUTH THREE TIMES DAILY NEEDED 07/02/2014 07/31/2014 Inactive (Response to an electronic controlled substance refill request - RxReferenceNumber: [id number]|1|0|1) Valium 10 mg tablet RxNorm: 554043 1 Tablet(s) PO Q8 PRN as needed 07/02/2014 07/01/2014 Inactive hydrocodone 10 mg-acetaminophen 325 mg tablet RxNorm: 014996 Tablet(s) TAKE 1-2 TABLETS BY MOUTH EVERY 6 HOURS NEEDED FOR PAIN 06/14/2014 07/13/2014 Inactive ( Response to an electronic controlled substance refill request - RxReferenceNumber: [id number]|1|0|1) diazepam 10 mg tablet RxNorm: 941365 TAKE 1 TABLET BY MOUTH THREE TIMES DAILY NEEDED 05/29/2014 06/27/2014 Inactive (Response to an electronic controlled substance refill request - RxReferenceNumber: [id number]|1|0|1) diazepam 10 mg tablet RxNorm: 693925 Tablet(s) PO TAKE 1 TABLET BY MOUTH THREE TIMES DAILY NEEDED 05/29/20142013 Inactive (Appended: Controlled substance eRx refill - RxReferenceNumber: [id number]|1|0|1) hydrocodone 10 mg-acetaminophen 325 mg tablet RxNorm: 713030 Tablet(s) TAKE 1-2 TABLETS BY MOUTH EVERY 6 HOURS NEEDED FOR PAIN 05/17/2014 06/13/2014 Inactive ( Response to an electronic controlled substance refill request - RxReferenceNumber: [id number]|1|0|1) diazepam 10 mg tablet RxNorm: 391492 Tablet(s) PO TAKE 1 TABLET BY MOUTH THREE TIMES DAILY NEEDED 04/27/20142013 Inactive (Appended: Controlled substance eRx refill - RxReferenceNumber: [id number]|1|0|1) Anucort-HC 25 mg suppository RxNorm: 1740393 1 SUPPOSITORY RTL QDAY PRN NEEDED 04/03/2014 06/01/2014 Inactive metoprolol tartrate 25 mg tablet RxNorm: 155021 1/2 TABLET(S) PO BID TAKE 1/2 TABLET BY MOUTH TWICE DAILY 04/03/201408/2014 Inactive Anucort-HC 25 mg suppository RxNorm: 3892627 1 SUPPOSITORY RTL QDAY PRN NEEDED 04/03/2014 06/01/2014 Inactive Seroquel 100 mg tablet RxNorm: 138003 1 TABLET(S) PO BID 201312/28/2014 Inactive TAKE 1 TABLET BY MOUTH TWICE DAILY Anucort-HC 25 mg suppository RxNorm: 2131446 1 SUPPOSITORY RTL QDAY PRN NEEDED 04/03/2014 06/01/2014 Inactive hydrocodone 10 mg-acetaminophen 325 mg tablet RxNorm: 639170 Tablet(s) TAKE 1-2 TABLETS BY MOUTH EVERY 6 HOURS NEEDED FOR PAIN 03/22/2014 04/20/2014 Inactive ( Response to an electronic controlled substance refill request - RxReferenceNumber: [id number]|1|0|1) Claritin-D 12 Hour 5 mg-120 mg tablet,extended release RxNorm: 3126125 1 Tablet(s ) PO BID 03/22/2014 2014 Inactive diazepam 10 mg tablet RxNorm: 120614 TAKE 1 TABLET BY MOUTH THREE TIMES DAILY NEEDED 03/19/2014 04/16/2014 Inactive (Response to an electronic controlled substance refill request - RxReferenceNumber: [id number]|1|0|1) Lipitor 20 mg tablet RxNorm: 804685 1 TABLET(S) PO DAILY 201312/05/2014 Inactive TAKE ONE TABLET BY MOUTH EVERY NIGHT AT BEDTIME Effexor XR 150 mg capsule,extended release RxNorm: 006432 1 CAPSULE(S) PO BID 03/01/2014 01/24/2015 Inactive TAKE 1 CAPSULE BY MOUTH TWICE DAILY Claritin-D 12 Hour 5 mg-120 mg tablet,extended release RxNorm: 7384114 1 Tablet(s ) PO BID 02/19/2014 03/21/2014 Inactive cyanocobalamin (vit B-12) 1,000 mcg/mL injection solution RxNorm: 241217 Milliliter(s) Inj 02/15/2014 02/15/2014 Inactive hydrocodone 10 mg-acetaminophen 325 mg tablet RxNorm: 523630 1 Tablet(s) PO Q6 PRN TAKE ONE TO TWO TABLETS BY MOUTH EVERY 6 HOURS NEEDED FOR PAIN 01/30/2014 01/30/2014 Inactive (Response to an electronic controlled substance refill request - RxReferenceNumber: [id number]|1|0|1) hydrocodone 10 mg-acetaminophen 325 mg tablet RxNorm: 477289 TAKE 1-2 TABLETS BY MOUTH EVERY 6 HOURS NEEDED FOR PAIN 01/30/2014 02/19/2014 Inactive (Response to an electronic controlled substance refill request - RxReferenceNumber: [id number]| [id number]|1|0|1) cyanocobalamin (vit B-12) 1,000 mcg/mL injection kit RxNorm: 381697 1 Milliliter(s ) Inj 01/15/2014 01/15/2014 Inactive Kenalog 40 mg/mL suspension for injection RxNorm: 7446975 1 Milliliter(s) Inj 01/15/2014 01/15/2014 Inactive Anucort-HC 25 mg suppository RxNorm: 8431943 1 Suppository RTL QDAY PRN as needed 01/15/2014 02/13/2014 Inactive hydrocodone 10 mg-acetaminophen 325 mg tablet RxNorm: 515371 TAKE ONE TO TWO TABLETS BY MOUTH EVERY 6 HOURS NEEDED FOR PAIN 12/29/2013 01/18/2014 Inactive ( Response to an electronic controlled substance refill request - RxReferenceNumber: [id number]|1|0|1) trazodone 100 mg tablet RxNorm: 228510 TAKE 2 TABLETS BY MOUTH EVERY NIGHT AT BEDTIME 12/20/2013 12/14/2014 Inactive mupirocin 2 % topical ointment RxNorm: 696454 1 APPLICATION TOP PRN 12/14/2013 01/09/2015 Inactive cyanocobalamin (vit B-12) 1,000 mcg/mL injection solution RxNorm: 557282 1 Milliliter(s) Inj 12/04/2013 12/04/2013 Inactive Savella 100 mg tablet RxNorm: 462813 1 Tablet(s) PO daily TAKE 1 TABLET BY MOUTH DAILY 11/28/2013 11/05/2016 Inactive Savella 100 mg tablet RxNorm: 144223 Tablet(s) PO TAKE 1 TABLET BY MOUTH DAILY 10/27/2013 11/27/2013 Inactive mupirocin 2 % topical ointment RxNorm: 117596 1 Application TOP PRN 10/17/2013 No Stop Date Active trazodone 100 mg tablet RxNorm: 209747 Tablet(s) PO TAKE 2 TABLETS BY MOUTH EVERY NIGHT AT BEDTIME 09/26/2013 11/05/2016 Inactive cyclobenzaprine 10 mg tablet RxNorm: 847926 Tablet(s) PO TAKE ONE TABLET BY MOUTH THREE TIMES DAILY 09/26/2013 01/07/2015 Inactive diazepam 10 mg tablet RxNorm: 086087 Tablet(s) PO TAKE 1 TABLET BY MOUTH THREE TIMES DAILY NEEDED 08/15/20132013 Inactive (Appended: Controlled substance eRx refill - RxReferenceNumber: [id number]|1|0|1) diazepam 10 mg tablet RxNorm: 132171 1 Tablet(s) PO TID PRN TAKE 1 TABLET BY MOUTH THREE TIMES DAILY NEEDED 08/15/2013 Inactive (Appended: Controlled substance eRx refill - RxReferenceNumber: [id number]|1|0|1) Vitamin B-12 1,000 mcg/mL injection solution RxNorm: 019963 Milliliter(s) Inj 07/24/2013 07/24/2013 Inactive pantoprazole 40 mg tablet,delayed release RxNorm: 089562 Tablet(s) PO TAKE 1 TABLET BY MOUTH EVERY DAY 07/20/201308/08 Inactive hydrocodone 10 mg-acetaminophen 325 mg tablet RxNorm: 644447 1 or 2 Tablet(s) PO Q6 PRN limit 6 per day 06/26/20132013 Inactive (Appended: Controlled substance eRx refill - RxReferenceNumber: [id number]|1|0|1) trazodone 100 mg tablet RxNorm: 973713 Tablet(s) PO TAKE 2 TABLETS BY MOUTH EVERY NIGHT AT BEDTIME 06/26/2013 11/05/2016 Inactive pantoprazole 40 mg tablet,delayed release RxNorm: 993555 Tablet(s) PO TAKE 1 TABLET BY MOUTH EVERY DAY 06/20/201306/05 Inactive prednisone 10 mg tablets in a dose pack RxNorm: 302069 Tablet(s) PO 6-5-4-3-2-1 06/13/2013 06/12/2013 Inactive prednisone 10 mg tablets in a dose pack RxNorm: 617737 Tablet(s) PO UD 6-5-4-3-2- 1 06/13/2013 06/18/2013 Inactive Silvadene 1 % topical cream RxNorm: 412698 1 TOP daily apply thin layer to left knee daily 06/12/2013 06/18/2013 Inactive metoprolol tartrate 25 mg tablet RxNorm: 645213 1/2 Tablet(s) PO BID TAKE 1/2 TABLET BY MOUTH TWICE DAILY 05/19/2013 Inactive Lipitor 20 mg tablet RxNorm: 490657 1 Tablet(s) PO daily 201203/11/2014 Inactive TAKE ONE TABLET BY MOUTH EVERY NIGHT AT BEDTIME Vitamin B-12 1,000 mcg/mL injection solution RxNorm: 852703 1 Milliliter(s) Inj 05/10/2013 05/10/2013 Inactive hydrocodone 10 mg-acetaminophen 325 mg tablet RxNorm: 357297 1 or 2 Tablet(s) PO Q6 PRN limit 6 per day 03/16/2013 No Stop Date Active (Appended: Controlled substance eRx refill - RxReferenceNumber: [id number]|1|0|1) Seroquel 100 mg tablet RxNorm: 654514 1 Tablet(s) PO BID 201203/10/2014 Inactive TAKE 1 TABLET BY MOUTH TWICE DAILY Effexor XR 150 mg capsule,extended release RxNorm: 164511 1 Capsule(s) PO BID 03/16/2013 02/28/2014 Inactive TAKE 1 CAPSULE BY MOUTH TWICE DAILY fluconazole 150 mg tablet RxNorm: 493438 1 Tablet(s) PO daily 03/06/2013 03/12/2013 Inactive Kenalog 40 mg/mL Susp for Injection RxNorm: 9098854 Milliliter(s) Inj 03/06/2013 03/06/2013 Inactive Ventolin HFA 90 mcg/actuation Aerosol Inhaler RxNorm: 0469860 1 or 2 Puff(s) INH Q6 PRN 02/20/2013 03/16/2014 Inactive cyanocobalamin (vitamin B-12) 1,000 mcg/mL Injection RxNorm: 404629 Milliliter(s) Inj 02/20/2013 02/20/2013 Inactive Valium 10 mg tablet RxNorm: 240294 1 Tablet(s) PO Q8 PRN 01/3102/24/2014 Inactive Kenalog 40 mg/mL Susp for Injection RxNorm: 3811033 Milliliter(s) Inj 12/26/2012 12/26/2012 Inactive cyanocobalamin (vitamin B-12) 1,000 mcg/mL Injection RxNorm: 668479 Milliliter(s) Inj 12/21/2012 12/21/2012 Inactive hydrocodone 10 mg-acetaminophen 325 mg tablet RxNorm: 8762515 1 or 2 Tablet(s) PO Q6 PRN limit 6 per day 11/25/20122012 Inactive (Appended: Controlled substance eRx refill - RxReferenceNumber: [id number]|1|0|1) diazepam 10 mg tablet RxNorm: 384106 1 Tablet(s) PO TID PRN 08/15/2013 Inactive TAKE 1 TABLET BY MOUTH THREE TIMES DAILY NEEDED (Appended: Controlled substance eRx refill - RxReferenceNumber: [id number]|1|0|1) diazepam 10 mg tablet RxNorm: 272462 Tablet(s) PO TAKE 1 TABLET BY MOUTH THREE TIMES DAILY NEEDED 11/21/20122013 Inactive (Appended: Controlled substance eRx refill - RxReferenceNumber: [id number]|1|0|1) Vitamin B-12 1,000 mcg/mL Injection RxNorm: 612084 1 Milliliter(s) Inj 11/16/2012 11/16/2012 Inactive hydrocodone 10 mg-acetaminophen 325 mg tablet RxNorm: 5249539 1 or 2 Tablet(s) PO Q6 PRN limit 6 per day 10/24/20122012 Inactive (Appended: Controlled substance eRx refill - RxReferenceNumber: [id number]|1|0|1) hydrocodone 10 mg-acetaminophen 325 mg tablet RxNorm: 7222823 Tablet(s) PO limit 5x days 10/24/2012 10/23/2012 Inactive (Appended: Controlled substance eRx refill - RxReferenceNumber: [id number]|1|0|1) Savella 100 mg tablet RxNorm: 804725 Tablet(s) PO TAKE 1 TABLET BY MOUTH DAILY 10/14/2012 12/05/2014 Inactive Tubersol 5 tub. unit/0.1 mL Intradermal RxNorm: 541655 Milliliter(s) IDrm 09/26/2012 09/26/2012 Inactive hydrocodone 10 mg-acetaminophen 325 mg tablet RxNorm: 7355101 1 Tablet(s) PO Q4 PRN q 4 hr prn limit 5 per day 09/19/2012 No Stop Date Active (Appended: Controlled substance eRx refill - RxReferenceNumber: [id number]|1|0|1) hydrocodone 10 mg-acetaminophen 325 mg tablet RxNorm: 8261689 Tablet(s) PO TAKE 1 TABLET BY MOUTH FOUR TIMES DAILY 09/16/2012 10/23/2012 Inactive (Appended: Controlled substance eRx refill - RxReferenceNumber: [id number]|1|0|1) cyclobenzaprine 10 mg tablet RxNorm: 371862 Tablet(s) PO TAKE ONE TABLET BY MOUTH THREE TIMES DAILY 09/16/2012 09/25/2013 Inactive hydrocodone 10 mg-acetaminophen 325 mg tablet RxNorm: 2714516 1 Tablet(s) PO Q4 PRN q 4 hr prn limit 5 per day 09/14/2012 09/19/2012 Inactive (Appended: Controlled substance eRx refill - RxReferenceNumber: [id number]|1|0|1) cyanocobalamin (vitamin B-12) 1,000 mcg/mL Injection RxNorm: 784788 1 Milliliter(s ) Inj 09/12/2012 09/12/2012 Inactive cyclobenzaprine 10 mg tablet RxNorm: 500804 Tablet(s) PO TAKE ONE TABLET BY MOUTH THREE TIMES DAILY 09/02/2012 09/15/2012 Inactive hydrocodone 10 mg-acetaminophen 325 mg tablet RxNorm: 4475184 1 Tablet(s) PO QID TAKE 1 TABLET BY MOUTH FOUR TIMES DAILY 08/23/2012 09/13/2012 Inactive (Appended: Controlled substance eRx refill - RxReferenceNumber: [id number]|1|0|1) Kenalog 40 mg/mL Susp for Injection RxNorm: 2978276 1 Milliliter(s) Inj 08/11/2012 08/11/2012 Inactive Vitamin B-12 1,000 mcg/mL Injection RxNorm: 162826 1 Milliliter(s) Inj 08/11/2012 08/11/2012 Inactive Zithromax 250 mg tablet RxNorm: 817788 Tablet(s) PO 07/21/2012 09/14/2012 Inactive please give z lauro cefdinir 300 mg capsule RxNorm: 660153 1 Capsule(s) PO BID 07/20/2012 Inactive cefdinir 300 mg capsule RxNorm: 881331 1 Capsule(s) PO BID 07/27/2012 Inactive diazepam 10 mg tablet RxNorm: 224725 1 Tablet(s) PO TID PRN 12/201211/22/2012 Inactive TAKE 1 TABLET BY MOUTH THREE TIMES DAILY NEEDED (Appended: Controlled substance eRx refill - RxReferenceNumber: [id number]|1|0|1) Vitamin B-12 1,000 mcg/mL Injection RxNorm: 602402 1 Milliliter(s) Inj 07/13/2012 07/13/2012 Inactive pantoprazole 40 mg tablet,delayed release RxNorm: 318761 1 Tablet(s) PO daily 06/14/2012 06/13/2012 Inactive pantoprazole 40 mg tablet,delayed release RxNorm: 867682 1 Tablet(s) PO daily 06/14/2012 06/19/2013 Inactive trazodone 100 mg tablet RxNorm: 789175 Tablet(s) PO TAKE 2 TABLETS BY MOUTH EVERY NIGHT AT BEDTIME 06/06/2012 11/05/2016 Inactive hydrocodone 10 mg-acetaminophen 325 mg tablet RxNorm: 6084244 Tablet(s) PO TAKE 1 TABLET BY MOUTH FOUR TIMES DAILY 05/24/2012 08/23/2012 Inactive (Appended: Controlled substance eRx refill - RxReferenceNumber: [id number]|1|0|1) Symbicort 160 mcg-4.5 mcg/actuation HFA Aerosol Inhaler RxNorm: 2018838 1 INH daily 05/24/2012 05/23/2012 Inactive this is an increase in dosing Symbicort 160 mcg-4.5 mcg/actuation HFA Aerosol Inhaler RxNorm: 8312086 1 INH daily 05/24/2012 06/17/2013 Inactive this is an increase in dosing Ventolin HFA 90 mcg/actuation Aerosol Inhaler RxNorm: 498269 1 or 2 Puff(s) INH Q6 PRN 05/24/2012 05/23/2012 Inactive Ventolin HFA 90 mcg/actuation Aerosol Inhaler RxNorm: 915798 1 or 2 Puff(s) INH Q6 PRN 05/24/2012 02/19/2013 Inactive metoprolol tartrate 25 mg tablet RxNorm: 943861 Tablet(s) PO TAKE 1/2 TABLET BY MOUTH TWICE DAILY 05/24/2012 05/18/2013 Inactive hydrocodone-acetaminophen 10 mg-325 mg tablet RxNorm: 2869887 Tablet(s) PO TAKE 1 TABLET BY MOUTH FOUR TIMES DAILY 05/17/2012 05/17/2012 Inactive (Appended: Controlled substance eRx refill - RxReferenceNumber: [id number]|1|0|1) diazepam 10 mg tablet RxNorm: 778909 Tablet(s) PO 05/03/2012 07/13/2012 Inactive TAKE 1 TABLET BY MOUTH THREE TIMES DAILY NEEDED (Appended: Controlled substance eRx refill - RxReferenceNumber: [id number]|1|0|1) metoprolol tartrate 25 mg tablet RxNorm: 110133 Tablet(s) PO 11/05/2016 Inactive TAKE 1/2 TABLET BY MOUTH TWICE DAILY hydrocodone-acetaminophen 10 mg-325 mg tablet RxNorm: 6932216 Tablet(s) PO 04/11/2012 05/17/2012 Inactive TAKE 1 TABLET BY MOUTH FOUR TIMES DAILY (Appended: Controlled substance eRx refill - RxReferenceNumber: [id number]|1|0|1) ProAir HFA 90 mcg/actuation Aerosol Inhaler RxNorm: 952030 2 INH Q4 PRN 04/05/2012 04/29/2013 Inactive Symbicort 80 mcg-4.5 mcg/actuation HFA Aerosol Inhaler RxNorm: 1677972 2 INH BID 04/05/2012 04/04/2012 Inactive Symbicort 80 mcg-4.5 mcg/actuation HFA Aerosol Inhaler RxNorm: 4243664 2 INH BID 04/05/2012 05/23/2012 Inactive ProAir HFA 90 mcg/actuation Aerosol Inhaler RxNorm: 552965 2 INH Q4 PRN 04/05/2012 04/04/2012 Inactive diazepam 10 mg tablet RxNorm: 541007 Tablet(s) PO 03/17/2012 05/03/2012 Inactive TAKE 1 TABLET BY MOUTH THREE TIMES DAILY NEEDED (Appended: Controlled substance eRx refill - RxReferenceNumber: [id number]|1|0|1) Effexor XR 150 mg capsule,extended release RxNorm: 926399 Capsule(s) PO 03/13/2012 03/15/2013 Inactive TAKE 1 CAPSULE BY MOUTH TWICE DAILY fluconazole 150 mg tablet RxNorm: 208105 1 Tablet(s) PO daily 03/11/2012 03/17/2012 Inactive Lipitor 20 mg tablet RxNorm: 483347 Tablet(s) PO 02/25/2012 03/20/2013 Inactive TAKE ONE TABLET BY MOUTH EVERY NIGHT AT BEDTIME Seroquel 100 mg tablet RxNorm: 162642 1 Tablet(s) PO BID 201102/18/2013 Inactive TAKE 1 TABLET BY MOUTH TWICE DAILY hydrocodone-acetaminophen 10 mg-325 mg tablet RxNorm: 7776416 Tablet(s) PO 02/25/2012 04/11/2012 Inactive TAKE 1 TABLET BY MOUTH FOUR TIMES DAILY . (Appended : Controlled substance eRx refill - RxReferenceNumber: [id number]|1|0|1) Seroquel 100 mg tablet RxNorm: 673376 1 Tablet(s) PO BID 201102/24/2012 Inactive TAKE 1 TABLET BY MOUTH TWICE DAILY Nexium 40 mg capsule,delayed release RxNorm: 571597 1 Capsule(s) PO daily 02/16/2012 06/13/2012 Inactive Effexor XR 150 mg capsule,extended release RxNorm: 515026 Capsule(s) PO 01/14/2012 11/05/2016 Inactive TAKE 1 CAPSULE BY MOUTH TWICE DAILY Kenalog 40 mg/mL Susp for Injection RxNorm: 6248263 1 Milliliter(s) Inj 01/13/2012 01/13/2012 Inactive Vitamin B-12 1,000 mcg/mL Injection RxNorm: 139862 Milliliter(s) Inj 12/21/2011 12/21/2011 Inactive hydrocodone-acetaminophen 10 mg-325 mg tablet RxNorm: 9791372 Tablet(s) PO 12/15/2011 02/25/2012 Inactive TAKE 1 TABLET BY MOUTH FOUR TIMES DAILY (Appended: Controlled substance eRx refill - RxReferenceNumber: [id number]|1|0|1) diazepam 10 mg tablet RxNorm: 887501 Tablet(s) PO 12/15/2011 03/17/2012 Inactive TAKE 1 TABLET BY MOUTH THREE TIMES DAILY NEEDED (Appended: Controlled substance eRx refill - RxReferenceNumber: [id number]|1|0|1) diazepam 10 mg Tab RxNorm: 184327 1 Tablet(s) PO daily 201112/15/2011 Inactive TAKE 1 TABLET BY MOUTH THREE TIMES DAILY (Appended: Controlled substance eRx refill - RxReferenceNumber: [id number]|1|0|1) hydrocodone-acetaminophen 10 mg-325 mg Tab RxNorm: 2120125 1 Tablet(s) PO QID 12/14/2011 12/15/2011 Inactive TAKE 1 TABLET BY MOUTH FOUR TIMES DAILY (Appended: Controlled substance eRx refill - RxReferenceNumber: [id number]|1|0|1) Seroquel 100 mg tablet RxNorm: 574693 Tablet(s) PO 11/27/2011 03/15/2013 Inactive TAKE 1 TABLET BY MOUTH TWICE DAILY hydrocodone-acetaminophen 10 mg-325 mg Tab RxNorm: 3458590 1 Tablet(s) PO QID 11/27/2011 12/13/2011 Inactive TAKE 1 TABLET BY MOUTH FOUR TIMES DAILY (Appended: Controlled substance eRx refill - RxReferenceNumber: [id number]|1|0|1) Seroquel 100 mg Tab RxNorm: 242076 1 Tablet(s) PO BID 201111/26/2011 Inactive Seroquel 100 mg tablet RxNorm: 328500 Tablet(s) PO 11/27/2011 02/16/2012 Inactive TAKE 1 TABLET BY MOUTH TWICE DAILY Nexium 40 mg capsule,delayed release RxNorm: 950432 1 Capsule(s) PO daily 11/16/2011 02/15/2012 Inactive cyanocobalamin (vitamin B-12) 1,000 mcg/mL Injection RxNorm: 629466 1 Milliliter(s ) Inj 10/30/2011 10/30/2011 Inactive hydrocodone-acetaminophen 10 mg-325 mg Tab RxNorm: 8180462 1 Tablet(s) PO QID 10/13/2011 11/23/2011 Inactive TAKE 1 TABLET BY MOUTH FOUR TIMES DAILY (Appended: Controlled substance eRx refill - RxReferenceNumber: [id number]|1|0|1) Effexor XR 150 mg capsule,extended release RxNorm: 005306 1 Capsule(s) PO BID 10/12/2011 01/09/2012 Inactive Fish Oil 1,000 mg Cap RxNorm: 1 Capsule(s) PO QID 10/02/2011 No Stop Date Active Vitamin B-12 1,000 mcg/mL Injection RxNorm: 399217 Milliliter(s) Inj 10/02/2011 10/02/2011 Inactive Kenalog 40 mg/mL Susp for Injection RxNorm: 0684835 Milliliter(s) Inj 10/02/2011 10/02/2011 Inactive diazepam 10 mg Tab RxNorm: 200595 1 Tablet(s) PO daily 201112/13/2011 Inactive TAKE 1 TABLET BY MOUTH THREE TIMES DAILY (Appended: Controlled substance eRx refill - RxReferenceNumber: [id number]|1|0|1) Vitamin B-12 1,000 mcg/mL Injection RxNorm: 624154 Milliliter(s) Inj 09/01/2011 09/01/2011 Inactive hydrocodone-acetaminophen 10 mg-325 mg Tab RxNorm: 7773887 1 Tablet(s) PO QID 08/25/2011 10/05/2011 Inactive TAKE 1 TABLET BY MOUTH FOUR TIMES DAILY (Appended: Controlled substance eRx refill - RxReferenceNumber: [id number]|1|0|1) diazepam 10 mg Tab RxNorm: 628152 Tablet(s) PO 08/10/2011 No Stop Date Active TAKE 1 TABLET BY MOUTH THREE TIMES DAILY (Appended: Controlled substance eRx refill - RxReferenceNumber: [id number]|1|0|1) Vitamin B-12 1,000 mcg/mL Injection RxNorm: 703640 Milliliter(s) Inj 08/03/2011 08/03/2011 Inactive fluticasone 50 mcg/actuation Nasal [place], Susp RxNorm: 8055462 2 [place] NASAL BID 07/27/2011 08/19/2012 Inactive hydrocodone-acetaminophen 10 mg-325 mg Tab RxNorm: 0556299 Tablet(s) PO 07/09/2011 08/24/2011 Inactive TAKE 1 TABLET BY MOUTH FOUR TIMES DAILY (Appended: Controlled substance eRx refill - RxReferenceNumber: [id number]|1|0|1) diazepam 10 mg Tab RxNorm: 880655 Tablet(s) PO 07/09/2011 08/09/2011 Inactive TAKE 1 TABLET BY MOUTH THREE TIMES DAILY (Appended: Controlled substance eRx refill - RxReferenceNumber: [id number]|1|0|1) diazepam 10 mg Tab RxNorm: 367018 Tablet(s) PO 07/08/2011 07/08/2011 Inactive TAKE 1 TABLET BY MOUTH THREE TIMES DAILY (Appended: Controlled substance eRx refill - RxReferenceNumber: [id number]|1|0|1) hydrocodone-acetaminophen 10 mg-325 mg Tab RxNorm: 9550333 Tablet(s) PO 07/08/2011 07/08/2011 Inactive TAKE 1 TABLET BY MOUTH FOUR TIMES DAILY (Appended: Controlled substance eRx refill - RxReferenceNumber: [id number]|1|0|1) cyclobenzaprine 10 mg tablet RxNorm: 655756 Tablet(s) PO 201109/01/2012 Inactive TAKE ONE TABLET BY MOUTH THREE TIMES DAILY Lipitor 40 mg Tab RxNorm: 652593 1 Tablet(s) PO daily 201106/16/2011 Inactive Lipitor 40 mg Tab RxNorm: 921967 1 Tablet(s) PO daily 201106/10/2012 Inactive trazodone 100 mg tablet RxNorm: 130989 Tablet(s) PO 06/02/2011 06/05/2012 Inactive TAKE 2 TABLETS BY MOUTH EVERY NIGHT AT BEDTIME diazepam 10 mg Tab RxNorm: 649740 Tablet(s) PO 05/28/2011 05/29/2011 Inactive TAKE 1 TABLET BY MOUTH THREE TIMES DAILY (Appended: Controlled substance eRx refill - RxReferenceNumber: [id number]|1|0|1) diazepam 10 mg Tab RxNorm: 227763 Tablet(s) PO 05/28/2011 07/08/2011 Inactive TAKE 1 TABLET BY MOUTH THREE TIMES DAILY (Appended: Controlled substance eRx refill - RxReferenceNumber: [id number]|1|0|1) hydrocodone-acetaminophen 10 mg-325 mg Tab RxNorm: 0978312 1 Tablet(s) PO QID 05/26/2011 07/08/2011 Inactive metoprolol tartrate 25 mg tablet RxNorm: 792163 Tablet(s) PO 04/10/2012 Inactive TAKE 1/2 TABLET BY MOUTH TWICE DAILY Savella 100 mg tablet RxNorm: 082755 Tablet(s) PO 05/14/2011 10/13/2012 Inactive TAKE 1 TABLET BY MOUTH DAILY Influenza Virus Vaccine 0.5 mL RxNorm: IM 02/23/2011 02/23/2011 Inactive B12 1000 mcg RxNorm: IM 02/23/20112010 Inactive hydrocodone-acetaminophen 10 mg-325 mg Tab RxNorm: 9789493 1 Tablet(s) PO QID 01/29/2011 01/28/2011 Inactive Restasis 0.05 % eye drops in a dropperette RxNorm: 469443 1 OPH BID No Start Date Active vitamin A-vit C-vit E-zinc-Se Tab RxNorm: 1 Tablet(s) PO daily No Start Date Active garlic extract Oral RxNorm: Oral No Start Date Active Acidophilus Tab RxNorm : 2 Tablet(s) PO QHS No Start Date Active Cranberry Concentrate Cap RxNorm: 1 Capsule(s) PO BID No Start Date Active Xopenex 1.25 mg/3 mL Neb Solution RxNorm: 793285 1 Milliliter(s) INH TID No Start Date Active niacin ER 500 mg Tab RxNorm: 053478 2 Tablet(s) PO HS No Start Date Active SenokotXTRA 17.2 mg Tab RxNorm: 9028999 Oral No Start Date Active Lotemax 0.5 % eye ointment RxNorm: 4170165 1 OPH QHS No Start Date Active Gaviscon Extra Strength Oral RxNorm: Oral No Start Date Active melatonin 3 mg Tab RxNorm: 887325 1 Tablet(s) PO QHS No Start Date Active Voltaren 1 % Topical Gel RxNorm: 747857 4 Gram(s) TOP QID No Start Date Active Vitamin D 1,000 unit Cap RxNorm: 028043 1 Capsule(s) PO QHS No Start Date Active Mucinex DM 30 mg-600 mg 12 hr Tab RxNorm: 7582936 1 Tablet(s) PO BID No Start Date Active calcium citrate 200 mg (950 mg) Tab RxNorm: 789233 1 Tablet(s) PO QID No Start Date Active valerian 530 mg Cap RxNorm: 2 Capsule(s) PO QHS No Start Date Active Anucort-HC 25 mg Suppository RxNorm: 5334278 1 Suppository RTL QDAY PRN No Start Date 01/14/2014 Inactive Nexium 40 mg Capsule, delayed release RxNorm: 384535 1 Capsule(s) PO daily No Start Date 11/15/2011 Inactive Lipitor 20 mg tablet RxNorm: 719604 1 Tablet(s) PO QHS No Start Date 02/25/2012 Inactive mupirocin 2 % topical ointment RxNorm: 017630 1 Application TOP PRN No Start Date 10/16/2013 Inactive fluconazole 150 mg tablet RxNorm: 402684 1 Tablet(s) PO daily No Start Date 03/10/2012 Inactive Fish Oil 1,000 mg Cap RxNorm: 1 Capsule(s) PO TID No Start Date 10/01/2011 Inactive hydrocodone-acetaminophen 10 mg-325 mg Tab RxNorm: 0972911 1 Tablet(s) PO QID No Start Date 05/25/2011 Inactive Zithromax 250 mg tablet RxNorm: 246826 Tablet(s) PO No Start Date 07/20/2012 Inactive please give z lauro prednisone 10 mg tablet RxNorm: 477264 Tablet(s) PO taper. 6-5-4-3-2-1 # 21 No Start Date 09/16/2017 Inactive fluticasone 50 mcg/actuation Nasal [place], Susp RxNorm: 9899206 2 [place] NASAL BID No Start Date 07/26/2011 Inactive Seroquel 100 mg Tab RxNorm: 995714 1 Tablet(s) PO BID No Start Date 11/26/2011 Inactive nystatin 100,000 unit/gram topical powder RxNorm: 571693 1 Application TOP QID until healed No Start Date 10/26/2016 Inactive Savella 100 mg Tab RxNorm: 147438 1 Tablet(s) PO daily No Start Date 05/13/2011 Inactive cyclobenzaprine 10 mg Tab RxNorm: 639428 1 Tablet(s) PO TID No Start Date 07/05/2011 Inactive metoprolol tartrate 25 mg Tab RxNorm: 247499 1/2 Tablet(s) PO BID No Start Date 05/25/2011 Inactive trazodone 100 mg Tab RxNorm: 708827 2 Tablet(s) PO QHS No Start Date 06/01/2011 Inactive Zithromax Z-Lauro 250 mg tablet RxNorm: 324301 1 Tablet(s) PO UD No Start Date 07/11/2015 Inactive z lauro Effexor XR 150 mg 24 hr Cap RxNorm: 585050 1 Capsule(s) PO BID No Start Date 10/11/2011 Inactive diazepam 10 mg Tab RxNorm: 386535 1 Tablet(s) PO TID No Start Date 05/28/2011 Inactive tramadol 50 mg tablet RxNorm: 396544 1-2 Tablet(s) PO Q6 as needed No Start Date 05/28/2015 Inactive Medication Administered Medication Codes Instructions Start Date Status cyanocobalamin (vit B-12) 1,000 mcg/mL injection solution RxNorm: 652486 1Milliliter 03/10/2018 No longer Active cyanocobalamin (vit B-12) 1,000 mcg/mL injection solution RxNorm: 505151 1Milliliter 10/19/2017 No longer Active cyanocobalamin (vit B-12) 1,000 mcg/mL injection solution RxNorm: 009486 1Milliliter 08/19/2017 No longer Active cyanocobalamin (vit B-12) 1,000 mcg/mL injection solution RxNorm: 284267 1Milliliter 07/06/2017 No longer Active cyanocobalamin (vit B-12) 1,000 mcg/mL injection solution RxNorm: 799962 1Milliliter 04/27/2017 No longer Active cyanocobalamin (vit B-12) 1,000 mcg/mL injection solution RxNorm: 034631 1Milliliter 11/17/2016 No longer Active cyanocobalamin (vit B-12) 1,000 mcg/mL injection solution RxNorm: 665613 1Milliliter 10/12/2016 No longer Active cyanocobalamin (vit B-12) 1,000 mcg/mL injection solution RxNorm: 014268 1Milliliter 09/11/2016 No longer Active cyanocobalamin (vit B-12) 1,000 mcg/mL injection solution RxNorm: 854395 Milliliter 07/03/2016 No longer Active cyanocobalamin (vit B-12) 1,000 mcg/mL injection solution RxNorm: 751187 1Milliliter 04/20/2016 No longer Active cyanocobalamin (vit B-12) 1,000 mcg/mL injection solution RxNorm: 594240 Milliliter 02/13/2016 No longer Active cyanocobalamin (vit B-12) 1,000 mcg/mL injection solution RxNorm: 443882 1Milliliter 12/02/2015 No longer Active cyanocobalamin (vit B-12) 1,000 mcg/mL injection solution RxNorm: 072356 1Milliliter 10/29/2015 No longer Active cyanocobalamin (vit B-12) 1,000 mcg/mL injection solution RxNorm: 951613 Milliliter 06/10/2015 No longer Active cyanocobalamin (vit B-12) 1,000 mcg/mL injection solution RxNorm: 340938 Milliliter 02/15/2014 No longer Active cyanocobalamin (vit B-12) 1,000 mcg/mL injection kit RxNorm : 605324 1Milliliter 01/15/2014 No longer Active Kenalog 40 mg/mL suspension for injection RxNorm: 5053240 1Milliliter 01/15/2014 No longer Active cyanocobalamin (vit B-12) 1,000 mcg/mL injection solution RxNorm: 306563 1Milliliter 12/04/2013 No longer Active Vitamin B-12 1,000 mcg/mL injection solution RxNorm: 714594 Milliliter 07/24/2013 No longer Active Vitamin B-12 1,000 mcg/mL injection solution RxNorm: 148557 1Milliliter 05/10/2013 No longer Active Kenalog 40 mg/mL Susp for Injection RxNorm: 0455794 Milliliter 03/06/2013 No longer Active cyanocobalamin (vitamin B-12) 1,000 mcg/mL Injection RxNorm : 962196 Milliliter 02/20/2013 No longer Active Kenalog 40 mg/mL Susp for Injection RxNorm: 7871259 Milliliter 12/26/2012 No longer Active cyanocobalamin (vitamin B-12) 1,000 mcg/mL Injection RxNorm : 273489 Milliliter 12/21/2012 No longer Active Vitamin B-12 1,000 mcg/mL Injection RxNorm: 128673 1Milliliter 11/16/2012 No longer Active Tubersol 5 tub. unit/0.1 mL Intradermal RxNorm: 018855 Milliliter 09/26/2012 No longer Active cyanocobalamin (vitamin B-12) 1,000 mcg/mL Injection RxNorm : 488606 1Milliliter 09/12/2012 No longer Active Kenalog 40 mg/mL Susp for Injection RxNorm: 5811167 1Milliliter 08/11/2012 No longer Active Vitamin B-12 1,000 mcg/mL Injection RxNorm: 635036 1Milliliter 08/11/2012 No longer Active Vitamin B-12 1,000 mcg/mL Injection RxNorm: 017463 1Milliliter 07/13/2012 No longer Active Kenalog 40 mg/mL Susp for Injection RxNorm: 5936413 1Milliliter 01/13/2012 No longer Active Vitamin B-12 1,000 mcg/mL Injection RxNorm: 149507 Milliliter 12/21/2011 No longer Active cyanocobalamin (vitamin B-12) 1,000 mcg/mL Injection RxNorm : 765243 1Milliliter 10/30/2011 No longer Active Vitamin B-12 1,000 mcg/mL Injection RxNorm: 341551 Milliliter 10/02/2011 No longer Active Kenalog 40 mg/mL Susp for Injection RxNorm: 1611285 Milliliter 10/02/2011 No longer Active Vitamin B-12 1,000 mcg/mL Injection RxNorm: 707677 Milliliter 09/01/2011 No longer Active Vitamin B-12 1,000 mcg/mL Injection RxNorm: 768659 Milliliter 08/03/2011 No longer Active B12 1000 [...] 2011 Weight gain ICD-9: 783.1 06/29/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 10/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 Reason For Visit [...] Item Item Code Result Date Comp Metabolic Mil216 NA 138 mEq/L 09/20/2017 Comp Metabolic Cul575 K 4.1 mEq/L 09/20/2017 Comp Metabolic Ddd891 CL 101 mEq/L 09/20/2017 Comp Metabolic Vhr453 CO2 25.0 mEq/L 09/20/2017 Comp Metabolic Fit584 ANION GAP 16 09/20/2017 Comp Metabolic Hql483 GLUCOSE 105 mg/dL 09/20/2017 Comp Metabolic Gjs820 Creat 0.8 mg/dL 09/20/2017 Comp Metabolic Rqz731 eGFR 86 ml/min/1.73m2 09/20/2017 Comp Metabolic Sug793 BUN 24 mg/dL 09/20/2017 Comp Metabolic Sin932 B/C Ratio 31.6 Ratio 09/20/2017 Comp Metabolic Cls002 CALCIUM 10.0 mg/dL 09/20/2017 Comp Metabolic Mdj448 ALK PHOS 63 U/L 09/20/2017 Comp Metabolic Wjh413 AST(SGOT) 28 U/L 09/20/2017 Comp Metabolic Vni666 ALT(SGPT) 34 U/L 09/20/2017 Comp Metabolic Bia709 BILI T 0.3 mg/dL 09/20/2017 Comp Metabolic Iys997 ALBUMIN 4.8 g/dL 09/20/2017 Comp Metabolic Wyc286 TPRO 7.2 g/dL 09/20/2017 Comp Metabolic Qep139 GLOB 2.4 g/dL 09/20/2017 Comp Metabolic Llq190 A/G Ratio 2.0 Ratio 09/20/2017 Comp Metabolic Swr512 O[place] 280 mOsmo 09/20/2017 Urine Culture Ucult Preliminary NO Growth Day 1 09/20/2017 Urine Culture Ucult Complete NO Growth Day 2 09/20/2017 Vitamin D 25 Oh Olg0651 VITAMIN D, 25 HYDROXY 46.43 ng/mL Comp Metabolic Stz061 NA 143 mEq/L 08/25/2017 Comp Metabolic Dce661 K 4.1 mEq/L 08/25/2017 Comp Metabolic Pvf836 CL 102 mEq/L 08/25/2017 Comp Metabolic Sku938 CO2 33.0 mEq/L 08/25/2017 Comp Metabolic Fjg232 ANION GAP 12 08/25/2017 Comp Metabolic Eyr346 GLUCOSE 99 mg/dL 08/25/2017 Comp Metabolic Hqw503 Creat 0.8 mg/dL 08/25/2017 Comp Metabolic Cmf297 eGFR 86 ml/min/1.73m2 08/25/2017 Comp Metabolic Lwe211 BUN 19 mg/dL 08/25/2017 Comp Metabolic Nzq143 B/C Ratio 25.0 Ratio 08/25/2017 Comp Metabolic Bbl499 CALCIUM 9.5 mg/dL 08/25/2017 Comp Metabolic Mkq974 ALK PHOS 63 U/L 08/25/2017 Comp Metabolic Pdf473 AST(SGOT) 17 U/L 08/25/2017 Comp Metabolic Yxf139 ALT(SGPT) 20 U/L 08/25/2017 Comp Metabolic Myo536 BILI T 0.3 mg/dL 08/25/2017 Comp Metabolic Tnb013 ALBUMIN 4.5 g/dL 08/25/2017 Comp Metabolic Qmp000 TPRO 6.6 g/dL 08/25/2017 Comp Metabolic Xno712 GLOB 2.1 g/dL 08/25/2017 Comp Metabolic Thf621 A/G Ratio 2.1 Ratio 08/25/2017 Comp Metabolic Rmo994 [place] 287 mOsmo 08/25/2017 B12 Anm873 B12 904.00 pg/ml 08/25/2017 Tsh Ord6 TSH [...] 103.4 fl 08/25/2017 Cbc With Differential Ord2 [place]% 7.5 % 08/25/2017 Cbc With Differential Ord2 [...] 3.65 K/ul 08/25/2017 Cbc With Differential Ord2 [place] ABS# 0.6 K/ul 08/25/2017 Cbc With Differential Ord2 Eos ABS# 0.1 K/ul 08/25/2017 Cbc With Differential Ord2 Baso ABS# 0.0 K/ul 08/25/2017 Tsh Ord6 hTSH II 1.18 uIU/mL 10/12/2016 Comp Metabolic Vjc717 NA 139 mEq/L 10/12/2016 Comp Metabolic Skp619 K 3.5 mEq/L 10/12/2016 Comp Metabolic Gut898 CL 102 mEq/L 10/12/2016 Comp Metabolic Hgh945 CO2 25.0 mEq/L 10/12/2016 Comp Metabolic Rpx231 ANION GAP 16 10/12/2016 Comp Metabolic Vyf611 GLUCOSE 84 mg/dL 10/12/2016 Comp Metabolic Agl276 Creat 0.6 mg/dL 10/12/2016 Comp Metabolic Fkg263 eGFR 105 ml/min/1.73m2 10/12/2016 Comp Metabolic Kkn697 BUN 12 mg/dL 10/12/2016 Comp Metabolic Okg504 B/C Ratio 18.8 Ratio 10/12/2016 Comp Metabolic Kkd490 CALCIUM 9.2 mg/dL 10/12/2016 Comp Metabolic Gyj548 ALK PHOS 59 U/L 10/12/2016 Comp Metabolic Alx641 AST(SGOT) 21 U/L 10/12/2016 Comp Metabolic Bke332 ALT(SGPT) 27 U/L 10/12/2016 Comp Metabolic Smi394 BILI T 0.2 mg/dL 10/12/2016 Comp Metabolic Hrk333 ALBUMIN 4.4 g/dL 10/12/2016 Comp Metabolic Xgw896 TPRO 6.7 g/dL 10/12/2016 Comp Metabolic Wwb266 GLOB 2.3 g/dL 10/12/2016 Comp Metabolic Qme188 A/G Ratio 1.9 Ratio 10/12/2016 Comp Metabolic Qil273 Osmo 276 mOsmo 10/12/2016 Cbc With Differential [...] 103.0 fl 10/12/2016 Cbc With Differential Ord2 [place]% 8.0 % 10/12/2016 Cbc With Differential Ord2 [...] 3.12 K/ul 10/12/2016 Cbc With Differential Ord2 [place] ABS# 0.8 K/ul 10/12/2016 Cbc With Differential Ord2 Eos ABS# 0.1 K/ul 10/12/2016 Cbc With Differential Ord2 Baso ABS# 0.0 K/ul 10/12/2016 Lipid Ord30 CHOL 194 mg/dL 10/12/2016 Lipid Ord30 HDL 76.0 mg/dl 10/12/2016 Lipid Ord30 TRIG 159 mg/dL 10/12/2016 Lipid Ord30 LDL 86 mg/dL 10/12/2016 Lipid Ord30 C/HDL 2.6 Ratio 10/12/2016 Comp Metabolic Yqq612 NA 139 mEq/L 09/11/2016 Comp Metabolic Kel134 K 3.6 mEq/L 09/11/2016 Comp Metabolic Tyz675 CL 102 mEq/L 09/11/2016 Comp Metabolic Jdq032 CO2 26.0 mEq/L 09/11/2016 Comp Metabolic Tyf877 ANION GAP 15 09/11/2016 Comp Metabolic Hed267 GLUCOSE 90 mg/dL 09/11/2016 Comp Metabolic Rnl356 Creat 0.6 mg/dL 09/11/2016 Comp Metabolic Gws857 eGFR 111 ml/min/1.73m2 09/11/2016 Comp Metabolic Swf619 BUN 14 mg/dL 09/11/2016 Comp Metabolic Hxo291 B/C Ratio 23.0 Ratio 09/11/2016 Comp Metabolic Icl036 CALCIUM 9.0 mg/dL 09/11/2016 Comp Metabolic Peg901 ALK PHOS 56 U/L 09/11/2016 Comp Metabolic Mrb059 AST(SGOT) 21 U/L 09/11/2016 Comp Metabolic Okf068 ALT(SGPT) 17 U/L 09/11/2016 Comp Metabolic Qfm723 BILI T 0.2 mg/dL 09/11/2016 Comp Metabolic Gvi115 ALBUMIN 4.1 g/dL 09/11/2016 Comp Metabolic Yze913 TPRO 6.5 g/dL 09/11/2016 Comp Metabolic Gmg823 GLOB 2.4 g/dL 09/11/2016 Comp Metabolic Uaf346 A/G Ratio 1.7 Ratio 09/11/2016 Comp Metabolic Wcg655 Osmo 278 mOsmo 09/11/2016 Tsh Ord6 hTSH [...] 33.0 pg 09/11/2016 Cbc With Differential Ord2 [place]% 8.6 % 09/11/2016 Cbc With Differential Ord2 [...] 3.35 K/ul 09/11/2016 Cbc With Differential Ord2 [place] ABS# 1.0 K/ul 09/11/2016 Cbc With Differential Ord2 Eos ABS# 0.1 K/ul 09/11/2016 Cbc With Differential Ord2 Baso ABS# 0.0 K/ul 09/11/2016 Lipid Ord30 CHOL 168 mg/dL 09/11/2016 Lipid Ord30 HDL 74.0 mg/dl 09/11/2016 Lipid Ord30 TRIG 167 mg/dL 09/11/2016 Lipid Ord30 LDL 61 mg/dL 09/11/2016 Lipid Ord30 C/HDL 2.3 Ratio 09/11/2016 B12 Npf570 B12 474.00 pg/ml 09/11/2016 B12 Hqt067 B12 827.00 pg/ml 03/02/2016 Cbc With Differential [...] 34.0 pg 02/28/2016 Cbc With Differential Ord2 [place]% 5.4 % 02/28/2016 Cbc With Differential Ord2 [...] 2.08 K/ul 02/28/2016 Cbc With Differential Ord2 [place] ABS# 0.3 K/ul 02/28/2016 Cbc With Differential Ord2 Eos ABS# 0.1 K/ul 02/28/2016 Cbc With Differential Ord2 Baso ABS# 0.0 K/ul 02/28/2016 Sed Rate Ord21 ESR 5 mm/hr 02/28/2016 C-Reactive Protein Qnt Crqnt CRP 0.1 mg/dl 02/28/2016 Comp Metabolic Lts332 NA 136 mEq/L 02/28/2016 Comp Metabolic Nkf773 K 4.0 mEq/L 02/28/2016 Comp Metabolic Ygx053 CL 103 mEq/L 02/28/2016 Comp Metabolic Geg947 CO2 27.0 mEq/L 02/28/2016 Comp Metabolic Sne510 ANION GAP 10 02/28/2016 Comp Metabolic Hds958 GLUCOSE 138 mg/dL 02/28/2016 Comp Metabolic Soa863 Creat 0.6 mg/dL 02/28/2016 Comp Metabolic Nuo484 eGFR 120 ml/min/1.73m2 02/28/2016 Comp Metabolic Igi348 BUN 15 mg/dL 02/28/2016 Comp Metabolic Xfi978 B/C Ratio 26.3 Ratio 02/28/2016 Comp Metabolic Dfr826 CALCIUM 8.8 mg/dL 02/28/2016 Comp Metabolic Dmg709 ALK PHOS 58 U/L 02/28/2016 Comp Metabolic Mwc235 AST(SGOT) 21 U/L 02/28/2016 Comp Metabolic Gxt851 ALT(SGPT) 21 U/L 02/28/2016 Comp Metabolic Tcs186 BILI T 0.2 mg/dL 02/28/2016 Comp Metabolic Jsa967 ALBUMIN 3.8 g/dL 02/28/2016 Comp Metabolic Puj327 TPRO 5.7 g/dL 02/28/2016 Comp Metabolic Lpg597 GLOB 1.9 g/dL 02/28/2016 Comp Metabolic Rft940 A/G Ratio 2.0 Ratio 02/28/2016 Comp Metabolic Ykd287 Osmo 275 mOsmo 02/28/2016 Tsh Ord6 hTSH II 1.25 uIU/mL 02/28/2016 B12 Rgk073 B12 >1500.00 pg/ml 01/11/2016 Vitamin D 25 Oh Vrd8395 VITAMIN D, 25 HYDROXY 45.94 ng/mL Comp Metabolic Lnd000 NA 136 mEq/L 03/21/2015 Comp Metabolic Trv541 K 3.8 mEq/L 03/21/2015 Comp Metabolic Xix225 CL 101 mEq/L 03/21/2015 Comp Metabolic Tgk194 CO2 31.0 mEq/L 03/21/2015 Comp Metabolic Qhh530 ANION GAP 8 03/21/2015 Comp Metabolic Jqy517 GLUCOSE 101 mg/dL 03/21/2015 Comp Metabolic Gcy048 Creat 0.7 mg/dL 03/21/2015 Comp Metabolic Tjs720 eGFR 94 ml/min/1.73m2 03/21/2015 Comp Metabolic Sot947 BUN 13 mg/dL 03/21/2015 Comp Metabolic Psb839 B/C Ratio 18.3 Ratio 03/21/2015 Comp Metabolic Umv529 CALCIUM 9.3 mg/dL 03/21/2015 Comp Metabolic Lon229 ALK PHOS 58 U/L 03/21/2015 Comp Metabolic Lqu880 AST(SGOT) 18 U/L 03/21/2015 Comp Metabolic Ukz385 ALT(SGPT) 22 U/L 03/21/2015 Comp Metabolic Qib204 BILI T 0.3 mg/dL 03/21/2015 Comp Metabolic Zqr308 ALBUMIN 4.4 g/dL 03/21/2015 Comp Metabolic Xgp506 TPRO 6.7 g/dL 03/21/2015 Comp Metabolic Iyq293 GLOB 2.3 g/dL 03/21/2015 Comp Metabolic Pte743 A/G Ratio 1.9 Ratio 03/21/2015 Comp Metabolic Cwq152 Osmo 272 mOsmo 03/21/2015 %Hba1C Sdq275 % HbA1c 33829-0 5.4 % 03/21/2015 %Hba1C Dnl254 Gluc Ave 108 mg/dL 03/21/2015 Cbc With [...] 1.32 uIU/mL 03/21/2015 URINALYSIS NONAUTO W/O SCOPE 03440 Specific [place] 1.025 DateTime(Free Text in Aprima) URINALYSIS NONAUTO W/O SCOPE 41906 PH 5.0 DateTime(Free Text in Aprima) URINALYSIS NONAUTO W/O SCOPE 01558 GLUCOSE NEG DateTime( Free Text in Aprima) URINALYSIS NONAUTO W/O SCOPE 13134 Protein NEG DateTime( Free Text in Aprima) URINALYSIS NONAUTO W/O SCOPE 54868 Blood NEG DateTime(Free Text in Apr[employer]) URINALYSIS NONAUTO W/O SCOPE 51363 Bilirubin NEG DateTime(Free Text in Apr[employer]) URINALYSIS NONAUTO W/O SCOPE 53809 Ketones NEG DateTime( Free Text in Apr[employer]) URINALYSIS NONAUTO W/O SCOPE 15265 Urobilinogen NEG DateTime(Free Text in Apr[employer]) URINALYSIS NONAUTO W/O SCOPE 62747 Nitrite NEG DateTime( Free Text in Apr[employer]) URINALYSIS NONAUTO W/O SCOPE 21598 Leukocytes NEG DateTime(Free Text in Aprima) Review [...] Procedure Codes Date THER/PROPH/DIAG INJ SC/IM CPT-4: 80670 04/05/2018 VITAMIN B12 INJECTION CPT-4: J3420 04/05/2018 THER/PROPH/DIAG INJ SC/IM CPT-4: 21647 03/10/2018 VITAMIN B12 INJECTION CPT-4: J3420 03/10/2018 THER/PROPH/DIAG INJ SC/IM CPT-4: 25308 10/19/2017 VITAMIN B12 INJECTION CPT-4: J3420 10/19/2017 URINALYSIS NONAUTO W/O SCOPE CPT-4: 25571 09/17/2017 THER/PROPH/DIAG INJ SC/IM CPT-4: 34392 08/19/2017 VITAMIN B12 INJECTION CPT-4: J3420 08/19/2017 THER/PROPH/DIAG INJ SC/IM CPT-4: 26724 07/06/2017 VITAMIN B12 INJECTION CPT-4: J3420 07/06/2017 THER/PROPH/DIAG INJ SC/IM CPT-4: 35279 04/27/2017 VITAMIN B12 INJECTION CPT-4: J3420 04/27/2017 THER/PROPH/DIAG INJ SC/IM CPT-4: 16881 11/17/2016 VITAMIN B12 INJECTION CPT-4: J3420 11/17/2016 THER/PROPH/DIAG INJ SC/IM CPT-4: 30251 10/12/2016 VITAMIN B12 INJECTION CPT-4: J3420 10/12/2016 THER/PROPH/DIAG INJ SC/IM CPT-4: 41420 09/11/2016 VITAMIN B12 INJECTION CPT-4: J3420 09/11/2016 THER/PROPH/DIAG INJ SC/IM CPT-4: 53060 07/03/2016 VITAMIN B12 INJECTION CPT-4: J3420 07/03/2016 VITAMIN B12 INJECTION CPT-4: J3420 04/20/2016 THER/PROPH/DIAG INJ SC/IM CPT-4: 51690 04/20/2016 ADMIN INFLUENZA VIRUS VAC CPT-4: G0008 03/17/2016 IIV4 FLU VACC NO PRESERV ID Formatting Model/CDA Sections, Assigned to/Kathy Lopez SNOMED CT: [id number] CPT-4: [id number] 03/17/2016 THER/PROPH/DIAG INJ SC/IM CPT-4: 67922 02/13/2016 VITAMIN B12 INJECTION CPT-4: J3420 02/13/2016 URINALYSIS NONAUTO W/O SCOPE CPT-4: 95301 12/10/2015 THER/PROPH/DIAG INJ SC/IM CPT-4: 16602 12/02/2015 VITAMIN B12 INJECTION CPT-4: J3420 12/02/2015 PNEUMOCOCCAL VACC [address]: [id number] CPT-4: 26095 12/02/2015 IMMUNIZATION ADMIN CPT -4: 60324 12/02/2015 THER/PROPH/DIAG INJ SC/IM CPT-4: 76106 10/29/2015 VITAMIN B12 INJECTION CPT-4: J3420 10/29/2015 THER/PROPH/DIAG INJ SC/IM CPT-4: 34718 06/10/2015 VITAMIN B12 INJECTION CPT-4: J3420 06/10/2015 THER/PROPH/DIAG INJ SC/IM CPT-4: 17767 02/15/2014 VITAMIN B12 INJECTION CPT-4: J3420 02/15/2014 TRIAMCINOLONE ACET INJ NOS CPT-4: J3301 01/15/2014 VITAMIN B12 INJECTION CPT-4: J3420 01/15/2014 THER/PROPH/DIAG INJ SC/IM CPT-4: 82222 12/04/2013 VITAMIN B12 INJECTION CPT-4: J3420 12/04/2013 THER/PROPH/DIAG INJ SC/IM CPT-4: 72147 07/24/2013 VITAMIN B12 INJECTION CPT-4: J3420 07/24/2013 PRESCRIP TRANSMIT VIA ERX SY CPT-4: G8553 06/12/2013 VITAMIN B12 INJECTION CPT-4: J3420 05/10/2013 THER/PROPH/DIAG INJ SC/IM CPT-4: 49968 05/10/2013 TRIAMCINOLONE ACET INJ NOS CPT-4: J3301 03/06/2013 PRESCRIP TRANSMIT VIA ERX SY CPT-4: G8553 03/06/2013 ADMIN INFLUENZA VIRUS VAC CPT-4: G0008 02/20/2013 FLULAVAL VACC, 3 YRS & >, IM CPT-4: Q2036 02/20/2013 THER/PROPH/DIAG INJ SC/IM CPT-4: 91753 02/20/2013 VITAMIN B12 INJECTION CPT-4: J3420 02/20/2013 THER/PROPH/DIAG INJ SC/IM CPT-4: 55967 12/26/2012 TRIAMCINOLONE ACET INJ NOS CPT-4: J3301 12/26/2012 THER/PROPH/DIAG INJ SC/IM CPT-4: 70745 12/21/2012 VITAMIN B12 INJECTION CPT-4: J3420 12/21/2012 THER/PROPH/DIAG INJ SC/IM CPT-4: 65555 11/16/2012 VITAMIN B12 INJECTION CPT-4: J3420 11/16/2012 TB INTRADERMAL TEST (includes injection fee) CPT-4: 01926 09/26/2012 THER/PROPH/DIAG INJ SC/IM CPT-4: 83332 09/12/2012 VITAMIN B12 INJECTION CPT-4: J3420 09/12/2012 TRIAMCINOLONE ACET INJ NOS CPT-4: J3301 08/11/2012 VITAMIN B12 INJECTION CPT-4: J3420 08/11/2012 THER/PROPH/DIAG INJ SC/IM CPT-4: 16424 08/11/2012 VITAMIN B12 INJECTION CPT-4: J3420 07/13/2012 THER/PROPH/DIAG INJ SC/IM CPT-4: 02707 07/13/2012 THER/PROPH/DIAG INJ SC/IM CPT-4: 99171 05/26/2012 TRIAMCINOLONE ACET INJ NOS CPT-4: J3301 05/26/2012 VITAMIN B12 INJECTION CPT-4: J3420 05/26/2012 ADMIN INFLUENZA VIRUS VAC CPT-4: G0008 03/02/2012 FLULAVAL VACC, 3 YRS & >, IM CPT-4: Q2036 03/02/2012 PRESCRIP TRANSMIT VIA ERX SY CPT-4: G8553 02/15/2012 TRIAMCINOLONE ACET INJ NOS CPT-4: J3301 01/13/2012 VITAMIN B12 INJECTION CPT-4: J3420 12/21/2011 VITAMIN B12 INJECTION CPT-4: J3420 10/30/2011 THER/PROPH/DIAG INJ SC/IM CPT-4: 80012 10/30/2011 THER/PROPH/DIAG INJ SC/IM CPT-4: 39154 10/02/2011 VITAMIN B12 INJECTION CPT-4: J3420 10/02/2011 TRIAMCINOLONE ACET INJ NOS CPT-4: J3301 10/02/2011 PRESCRIP TRANSMIT VIA ERX SY CPT-4: G8553 10/02/2011 VITAMIN B12 INJECTION CPT-4: J3420 09/01/2011 URINALYSIS NONAUTO W/O SCOPE CPT-4: 42236 08/03/2011 VITAMIN B12 INJECTION CPT-4: J3420 08/03/2011 THER/PROPH/DIAG INJ SC/IM CPT-4: 70389 08/03/2011 THER/PROPH/DIAG INJ SC/IM CPT-4: 66590 06/11/2011 VITAMIN B12 INJECTION CPT-4: J3420 06/11/2011 ROUTINE VENIPUNCTURE CPT-4: 11268 06/11/2011 THER/PROPH/DIAG INJ SC/IM CPT-4: 27395 02/23/2011 VITAMIN B12 INJECTION CPT-4: J3420 02/23/2011 ADMIN INFLUENZA VIRUS VAC CPT-4: G0008 02/23/2011 FLULAVAL VACC, 3 YRS & >, IM CPT-4: Q2036 02/23/2011 Vital Signs Date Vital 04/05/2018 Blood Pressure 1: 144/80 Code : 8480-6 BMI: 30.9 Code : 30062-9 Heart Rate 1 : 118 bpm Height: 5'9" SpO2: 98% Weight: 209 lbs 03/10/2018 Blood Pressure 1: 128/82 Code : 8480-6 Blood Pressure 1: 162/74 Code: 8480-6 BMI: 30.3 Code: 69631-8 Heart Rate 1: 101 bpm Height: 5'9" SpO2: 98% Weight: 205 lbs 01/13/2018 Blood Pressure 1: 102/78 Code : 8480-6 BMI: 31.6 Code : 11622-7 Heart Rate 1 : 103 bpm Height: 5'9" SpO2: 98% Weight: 214 lbs 11/25/2017 Blood Pressure 1: 114/80 Code : 8480-6 BMI: 30.3 Code : 47489-9 Heart Rate 1 : 112 bpm Height: 5'9" SpO2: 98% Weight: 205 lbs 10/19/2017 Blood Pressure 1: 110/70 Code : 8480-6 BMI: 30.7 Code : 76952-3 Heart Rate 1 : 102 bpm Height: 5'9" SpO2: 97% Weight: 208 lbs 09/17/2017 Blood Pressure 1: 132/78 Code : 8480-6 BMI: 30.4 Code : 93484-3 Heart Rate 1 : 117 bpm Height: 5'9" SpO2: 97% Weight: 206 lbs 09/06/2017 Blood Pressure 1: 110/78 Code : 8480-6 BMI: 29.8 Code : 06715-0 Heart Rate 1 : 106 bpm Height: 5'9" SpO2: 97% Weight: 202 lbs 08/19/2017 Blood Pressure 1: 136/72 Code : 8480-6 BMI: 30.4 Code : 88624-5 Heart Rate 1 : 108 bpm Height: 5'9" SpO2: 94% Weight: 206 lbs 07/06/2017 Blood Pressure 1: 154/80 Code : 8480-6 Heart Rate 1: 111 bpm Height: 5'9" Respiratory Rate: 20 bpm SpO2: 98% Weight: 04/27/2017 Blood Pressure 1: 138/78 Code : 8480-6 BMI: 30.4 Code : 67260-0 Heart Rate 1 : 96 bpm Height: 5'9" SpO2: 97% Weight: 206 lbs 04/06/2017 Blood Pressure 1: 108/80 Code : 8480-6 BMI: 31.0 Code : 92448-8 Heart Rate 1 : 96 bpm Height: 5'9" SpO2: 98% Weight: 210 lbs 02/25/2017 Blood Pressure 1: 132/80 Code : 8480-6 BMI: 32.5 Code : 13608-5 Heart Rate 1 : 112 bpm Height: 5'9" SpO2: 94% Weight: 220 lbs 01/19/2017 Blood Pressure 1: 122/68 Code : 8480-6 Heart Rate 1: 100 bpm Height: 5'9" SpO2: 95% Weight: 11/17/2016 Blood Pressure 1: 132/74 Code : 8480-6 BMI: 32.2 Code : 93580-8 Heart Rate 1 : 98 bpm Height: 5'9" SpO2: 94% Weight: 218 lbs 10/12/2016 Blood Pressure 1: 130/82 Code : 8480-6 BMI: 32.2 Code : 45284-0 Heart Rate 1 : 97 bpm Height: 5'9" SpO2: 94% Weight: 218 lbs 08/18/2016 Blood Pressure 1: 132/78 Code : 8480-6 BMI: 32.0 Code : 12648-8 Heart Rate 1 : 113 bpm Height: 5'9" SpO2: 98% Weight: 217 lbs 08/07/2016 Blood Pressure 1: 126/70 Code : 8480-6 BMI: 33.1 Code : 54037-6 Heart Rate 1 : 102 bpm Height: 5'9" SpO2: 94% Weight: 224 lbs 07/31/2016 Blood Pressure 1: 134/66 Code : 8480-6 BMI: 31.7 Code : 97022-4 Heart Rate 1 : 97 bpm Height: 5'9" SpO2: 95% Temperature: 36.4 (C) / 97.6 (F) Weight: 215 lbs 07/15/2016 Blood Pressure 1: 126/62 Code : 8480-6 Heart Rate 1: 105 bpm Height: 5'9" Weight: 07/07/2016 Blood Pressure 1: 106/54 Code : 8480-6 BMI: 31.7 Code : 60428-5 Heart Rate 1 : 93 bpm Height: 5'9" SpO2: 97% Weight: 215 lbs 06/25/2016 Heart Rate 1: 99 bpm Height: 5'9" SpO2: 95% Weight: 05/07/2016 Blood Pressure 1: 124/86 Code : 8480-6 BMI: 28.5 Code : 08589-4 Heart Rate 1 : 100 bpm Height: 5'9" SpO2: 96% Weight: 193 lbs 04/20/2016 Blood Pressure 1: 120/80 Code : 8480-6 BMI: 28.5 Code : 72980-0 Heart Rate 1 : 86 bpm Height: 5'9" SpO2: 96% Weight: 193 lbs 03/17/2016 Blood Pressure 1: 120/70 Code : 8480-6 BMI: 29.1 Code : 28153-6 Heart Rate 1 : 103 bpm Height: 5'9" SpO2: 96% Weight: 197 lbs 03/05/2016 Blood Pressure 1: 124/78 Code : 8480-6 Heart Rate 1: 82 bpm Height: 5'9" SpO2: 94% Weight: 02/28/2016 Blood Pressure 1: 94/50 Code : 8480-6 Heart Rate 1: 91 bpm Height: 5'9" SpO2: 94% Weight: 02/13/2016 Blood Pressure 1: 128/86 Code : 8480-6 BMI: 28.6 Code : 86731-3 Heart Rate 1 : 100 bpm Height: 5'9" SpO2: 96% Weight: 194 lbs 08/15/2015 Blood Pressure 1: 128/68 Code : 8480-6 BMI: 27.3 Code : 14665-4 Heart Rate 1 : 72 bpm Height: 5'9" SpO2: 92% Weight: 185 lbs 07/25/2015 Blood Pressure 1: 122/76 Code : 8480-6 BMI: 27.5 Code : 37668-5 Heart Rate 1 : 70 bpm Height: 5'9" SpO2: 94% Weight: 186 lbs 06/25/2015 Blood Pressure 1: 118/54 Code : 8480-6 BMI: 26.7 Code : 94436-0 Heart Rate 1 : 98 bpm Height: 5'9" SpO2: 97% Weight: 181 lbs 06/10/2015 Blood Pressure 1: 110/68 Code : 8480-6 Heart Rate 1: 80 bpm Height: SpO2: 98% Weight: 05/08/2015 Blood Pressure 1: 120/68 Code : 8480-6 BMI: 27.5 Code : 00451-6 Heart Rate 1 : 95 bpm Height: 5'9" SpO2: 96% Weight: 186 lbs 03/26/2015 Blood Pressure 1: 120/80 Code : 8480-6 Heart Rate 1: 102 bpm Respiratory Rate: 18 bpm SpO2: 92% Weight: 186 lbs 03/15/2015 Blood Pressure 1: 122/64 Code : 8480-6 BMI: 26.6 Code : 08015-4 Heart Rate 1 : 96 bpm Height: 5'9" SpO2: 96% Weight: 180 lbs 01/10/2015 Blood Pressure 1: 120/68 Code : 8480-6 BMI: 27.5 Code : 70553-3 Heart Rate 1 : 90 bpm Height: 5'9" Weight: 186 lbs 12/21/2014 Blood Pressure 1: 118/78 Code : 8480-6 BMI: 27.2 Code : 64580-1 Heart Rate 1 : 61 bpm Height: 5'9" SpO2: 97% Weight: 184 lbs 10/05/2014 Blood Pressure 1: 118/64 Code : 8480-6 BMI: 27.0 Code : 85730-7 Heart Rate 1 : 76 bpm Height: 5'9" Weight: 183 lbs 06/14/2014 Blood Pressure 1: 120/78 Code : 8480-6 BMI: 26.6 Code : 27824-4 Heart Rate 1 : 96 bpm Height: 5'9" Weight: 180 lbs 01/19/2014 Blood Pressure 1: 128/76 Code : 8480-6 BMI: 27.3 Code : 61882-8 Heart Rate 1 : 82 bpm Height: 5'9" Weight: 185 lbs 01/15/2014 Blood Pressure 1: 110/62 Code : 8480-6 BMI: 27.9 Code : 49413-2 Heart Rate 1 : 80 bpm Height: 5'9" Weight: 189 lbs 10/20/2013 Blood Pressure 1: 112/62 Code : 8480-6 BMI: 30.1 Code : 53519-6 Heart Rate 1 : 76 bpm Height: [...] Code : 8480-6 BMI: 30.6 Code : 23904-9 Heart Rate 1 : 92 bpm Height: 5'9" Weight: 207 lbs 05/23/2013 Blood Pressure 1: 120/78 Code : 8480-6 Heart Rate 1: 84 bpm Weight: 05/19/2013 Blood Pressure 1: 126/78 Code : 8480-6 BMI: 30.3 Code : 31775-6 Heart Rate 1 : 88 bpm Height: 5'9" Weight: 205 lbs 05/16/2013 Blood Pressure 1: 126/66 Code : 8480-6 BMI: 30.3 Code : 03840-1 Heart Rate 1 : 84 bpm Height: 5'9" Weight: 205 lbs 03/06/2013 Blood Pressure 1: 128/76 Code : 8480-6 BMI: 30.6 Code : 68038-2 Heart Rate 1 : 88 bpm Height: 5'9" Weight: 207 lbs 12/26/2012 Blood Pressure 1: 142/70 Code : 8480-6 BMI: 29.6 Code : 04245-0 Heart Rate 1 : 100 bpm Height: 5'9" Weight: 200 lbs 8 oz 11/21/2012 Blood Pressure 1: 132/80 Code : 8480-6 BMI: 29.5 Code : 53814-4 Heart Rate 1 : 96 bpm Height: [...] Code : 8480-6 BMI: 29.2 Code : 80105-9 Heart Rate 1 : 64 bpm Height: 5'9" Respiratory Rate: 16 bpm Weight: 198 lbs 03/11/2011 Blood Pressure 1: 106/60 Code : 8480-6 BMI: 28.8 Code : 83675-3 Heart Rate 1 : 100 bpm Height: 5'9" SpO2: 97% Weight: 195 lbs 02/12/2011 Weight: 192 lbs 01/29/2011 Blood Pressure 1: 100/64 Code : 8480-6 BMI: 28.1 Code : 32903-8 Heart Rate 1 : 100 bpm Height: [...] Hospital Follow Up _ pain 05/16/2013 left [id number] to left knee-applying neosporin and covering with [...] pt to have a 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 PATIENT, LEVEL IV Diagnosis: Essential (primary) hypertension[ICD10: I10] Diagnosis: Chronic pain syndrome[ICD10: G89.4] Diagnosis: Vitamin B12 deficiency anemia due to intrinsic factor deficiency[ ICD10: D51.0] [facility] CPT-4: 79994 04/05/2018 ([id number]) 03990 EST. PATIENT, LEVEL IV Diagnosis: Essential (primary) hypertension[ICD10: I10] Diagnosis: Generalized anxiety disorder[ICD10: F41.1] Diagnosis: Major depressive disorder, recurrent, mild[ICD10: F33.0] Diagnosis: Vitamin B12 deficiency anemia due to intrinsic factor deficiency[ ICD10: D51.0] Valentina Thompson MD, [facility] CPT-4: 92676 03/10/2018 ([id number]) 94830 EST. PATIENT, LEVEL IV Diagnosis: Headache[ICD10: R51] Diagnosis: Obstructive sleep apnea (adult) (pediatric)[ICD10: G47.33] Diagnosis: Cervicalgia[ICD10: M54.2] Valentina Thompson MD, [facility] CPT-4: 25924 01/13/2018 ([id number]) 97813 EST. PATIENT, LEVEL IV Diagnosis: Headache[ICD10: R51] Diagnosis: Spinal stenosis, cervical region[ICD10: M48.02] Diagnosis: Major depressive disorder, recurrent, mild[ICD10: F33.0] Valentina Thompson MD , [facility] CPT-4: 51690 11/25/2017 ([id number]) 97463 EST. PATIENT, LEVEL III Diagnosis: Allergic contact dermatitis due to plants, except food[ICD10: L23.7] Diagnosis: Vitamin B12 deficiency anemia due to intrinsic factor deficiency[ ICD10: D51.0] Valentina Thompson MD, [facility] CPT-4: 15905 10/19/2017 ([id number]) 60272 EST. PATIENT, LEVEL IV Diagnosis: Generalized abdominal pain[ICD10: R10.84] Diagnosis: Urinary tract infection, site not specified[ICD10: N39.0] Diagnosis: Hypokalemia[ICD10: E87.6] Valentina Thompson MD, [facility] CPT-4: 87758 09/17/2017 ([id number]) 49419 EST. PATIENT, LEVEL IV Diagnosis: Chronic pain syndrome[ICD10: G89.4] Diagnosis: Pain in left knee[ICD10: M25.562] Diagnosis: Pain in right knee[ICD10: M25.561] Diagnosis: Essential (primary) hypertension[ICD10: I10] Aicha Thompson MD, [facility] CPT-4: 03118 09/06/2017 ([id number]) 70667 EST. PATIENT, LEVEL IV Diagnosis: Headache[ICD10: R51] Diagnosis: Chronic pain syndrome[ICD10: G89.4] Diagnosis: Mixed hyperlipidemia[ICD10: E78.2] Diagnosis: Vitamin D deficiency, unspecified[ICD10: E55.9] Diagnosis: Vitamin B12 deficiency anemia, unspecified[ICD10: D51.9] Valentina Thompson MD , [facility] CPT-4: 28103 08/19/2017 68337 EST. PATIENT, LEVEL V Diagnosis: Essential (primary) hypertension[ICD10: I10] Diagnosis: Vitamin B12 deficiency anemia due to intrinsic factor deficiency[ ICD10: D51.0] Diagnosis: Chronic pain syndrome[ICD10: G89.4] Aicha Thompson MD, [facility] CPT-4: 88007 07/06/2017 ([id number]) 53868 EST. PATIENT, LEVEL IV Diagnosis: Cervicalgia[ICD10: M54.2] Diagnosis: Laceration without foreign body of scalp, initial encounter[ICD10: S01.01XA] Diagnosis: Vitamin B12 deficiency anemia due to intrinsic factor deficiency[ ICD10: D51.0] Valentina Thompson MD, [facility] CPT-4: 46416 04/27/2017 99549 EST. PATIENT, LEVEL II Diagnosis: Residual hemorrhoidal skin tags[ICD10: K64.4] Valentina Thompson MD, [facility] CPT-4: 87601 04/06/2017 ([id number]) 59724 EST. PATIENT, LEVEL III Diagnosis: Pain in right foot[ICD10: M79.671] Diagnosis: Pain in left foot[ICD10: M79.672] Diagnosis: Cervicalgia[ICD10: M54.2] Valentina Thompson MD, [facility] CPT-4: 84012 02/25/2017 ([id number]) 13423 EST. PATIENT, LEVEL IV Diagnosis: Essential (primary) hypertension[ICD10: I10] Diagnosis: Chronic pain syndrome[ICD10: G89.4] Diagnosis: Spinal stenosis, cervical region[ICD10: M48.02] Diagnosis: Pain in right leg[ICD10: M79.604] Valentina Thompson MD, [facility] CPT-4: 48214 01/19/2017 ([id number]) 14464 EST. PATIENT, LEVEL III Diagnosis: Pain in right foot[ICD10: M79.671] Diagnosis: Pain in left foot[ICD10: M79.672] Diagnosis: Chronic pain syndrome[ICD10: G89.4] Diagnosis: Vitamin B12 deficiency anemia, unspecified[ICD10: D51.9] Valentina Thompson MD , [facility] CPT-4: 53716 11/17/2016 ([id number]) 29945 EST. PATIENT, LEVEL IV Diagnosis: Essential (primary) hypertension[ICD10: I10] Diagnosis: Chronic pain syndrome[ICD10: G89.4] Diagnosis: Foot drop, right foot[ICD10: M21.371] Diagnosis: Foot drop, left foot[ICD10: M21.372] Diagnosis: Other abnormalities of gait and mobility[ICD10: R26.89] Diagnosis: Vitamin B12 deficiency anemia due to intrinsic factor deficiency[ ICD10: D51.0] Aicha Thompson MD, [facility] CPT-4: 68144 10/12/2016 ([id number]) 29055 EST. PATIENT, LEVEL III Diagnosis: Pain in right ankle and joints of right foot[ICD10: M25.571] Diagnosis: Superficial foreign body, right foot, initial encounter[ICD10: S90.851A] Valentina Thompson MD, [facility] CPT-4: 02394 ([id number]) 08179 EST. PATIENT, LEVEL III Diagnosis: Candidiasis of vulva and vagina[ICD10: B37.3] Diagnosis: Vitamin B12 deficiency anemia, unspecified[ICD10: D51.9] Valentina Thompson MD , [facility] CPT-4: 67969 08/07/2016 ([id number]) 64629 EST. PATIENT, LEVEL III Diagnosis: Spinal stenosis, cervical region[ICD10: M48.02] Diagnosis: Pain in right ankle and joints of right foot[ICD10: M25.571] Diagnosis: Pain in left ankle and joints of left foot[ICD10: M25.572] Valentina Thompson MD, [facility] CPT-4: 60136 07/31/2016 34650 EST. PATIENT, LEVEL III Diagnosis: Cervicalgia[ICD10: M54.2] Diagnosis: Chronic pain syndrome[ICD10: G89.4] Beatriz Thompson MD, [facility] CPT-4: 82851 07/15/2016 ([id number]) 17150 EST. PATIENT, LEVEL III Diagnosis: Spinal stenosis, cervical region[ICD10: M48.02] Diagnosis: Low back pain[ICD10: M54.5] Valentina Thompson MD, [facility] CPT-4: 10193 07/07/2016 ([id number]) 57009 EST. PATIENT, LEVEL IV Diagnosis: Cervicalgia[ICD10: M54.2] Diagnosis: Essential (primary) hypertension[ICD10: I10] Diagnosis: Mixed hyperlipidemia[ICD10: E78.2] Aicha Thompson MD, [facility] CPT-4: 10548 06/25/2016 ([id number]) 97971 EST. PATIENT, LEVEL III Diagnosis: Cervicalgia[ICD10: M54.2] Valentina Thompson MD, [facility] CPT-4: 09634 05/07/2016 ([id number]) 30825 EST. PATIENT, LEVEL III Diagnosis: Pleurodynia[ICD10: R07.81] Diagnosis: Generalized anxiety disorder[ICD10: F41.1] Diagnosis: Vitamin B12 deficiency anemia due to intrinsic factor deficiency[ ICD10: D51.0] Diagnosis: Hypoxemia[ICD10: R09.02] Valentina Thompson MD, [facility] CPT-4: 82239 04/20/2016 ([id number]) 43234 EST. PATIENT, LEVEL III Diagnosis: Generalized anxiety disorder[ICD10: F41.1] Diagnosis: Radiculopathy, lumbar region[ICD10: M54.16] Valentina Thompson MD, [facility] CPT-4: 52277 03/17/2016 49039 EST. PATIENT, LEVEL IV Diagnosis: Chronic pain syndrome[ICD10: G89.4] Diagnosis: Radiculopathy, lumbar region[ICD10: M54.16] Diagnosis: Generalized anxiety disorder[ICD10: F41.1] Beatriz Thompson MD, [facility] CPT-4: 25138 03/05/2016 ([id number]) 69367 EST. PATIENT, LEVEL III Diagnosis: Radiculopathy, lumbar region[ICD10: M54.16] Diagnosis: Generalized anxiety disorder[ICD10: F41.1] Valentina Thompson MD, [facility] CPT-4: 77309 02/28/2016 ([id number]) 20505 EST. 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 PATIENT, LEVEL III Diagnosis: Headache[ICD10: R51] Diagnosis: Cervicalgia[ICD10: M54.2] Valentina Thompson MD, [facility] CPT-4: 93494 08/15/2015 ([id number]) 04828 EST. PATIENT, LEVEL III Diagnosis: Generalized anxiety disorder[ICD10: F41.1] Diagnosis: Cervicalgia[ICD10: M54.2] Valentina Thompson MD, [facility] CPT-4: 29498 07/25/2015 ([id number]) 65337 EST. PATIENT, LEVEL IV Diagnosis: Pain in right foot[ICD10: M79.671] Diagnosis: Unspecified osteoarthritis, unspecified site[ICD10: M19.90] Diagnosis: Pain in left ankle and joints of left foot[ICD10: M25.572] Diagnosis: Pain in right ankle and joints of right foot[ICD10: M25.571] Valentina Thompson MD, [facility] CPT-4: 68696 06/25/2015 [id number]) 01262 EST. 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 PATIENT, LEVEL IV Diagnosis: Essential (primary) hypertension[ICD10: I10] Diagnosis: Pain in right foot[ICD10: M79.671] Diagnosis: Pain in left foot[ICD10: M79.672] Diagnosis: Anxiety disorder, unspecified[ICD10: F41.9] Aicha Thompson MD, [facility] CPT-4: 92984 05/08/2015 ([id number]) 00932 EST. PATIENT, LEVEL III Diagnosis: Generalized anxiety disorder[ICD10: F41.1] Diagnosis: Essential (primary) hypertension[ICD10: I10] Diagnosis: Other myositis, multiple sites[ICD10: M60.89] Valentina Thompson MD, [facility] CPT-4: 13478 03/26/2015 59049 EST. PATIENT, LEVEL III Diagnosis: Chronic pain syndrome[ICD10: G89.4] Diagnosis: Unspecified osteoarthritis, unspecified site[ICD10: M19.90] Diagnosis: Pain in right foot[ICD10: M79.671] Diagnosis: Pain in left foot[ICD10: M79.672] Beatriz Thompson MD, [facility] CPT -4: 33624 03/15/2015 ([id number]) 36862 EST. PATIENT, LEVEL III Diagnosis: Abrasion of knee, left[ICD9: 916.0] Valentina Thompson MD, [facility] CPT-4: 60562 01/10/2015 ([id number]) 51603 EST. PATIENT, LEVEL IV Diagnosis: CHRONIC PAIN SYNDROME[ICD9: 338.4] Diagnosis: MYALGIA AND MYOSITIS[ICD9: 729.1] Diagnosis: OSTEOARTH NOS-UNSPEC[ICD9: 715.90] Diagnosis: DEPRESSIVE DISORDER NEC[ICD9: 311] Diagnosis: GENERALIZED ANXIETY DISEASE[ICD9: 300.02] Valentina Thompson MD, [facility] CPT-4: 75435 12/21/2014 ([id number]) 97171 EST. PATIENT, LEVEL IV Diagnosis: GENERALIZED ANXIETY DISEASE[ICD9: 300.02] Diagnosis: DEPRESSIVE DISORDER NEC[ICD9: 311] Diagnosis: ESSENTIAL HYPERTENSION[ICD9: 401.9] Valentina Thompson MD, [facility] CPT-4: 98199 10/05/2014 ([id number]) 95884 EST. PATIENT, LEVEL III Diagnosis: Knee pain, right[ICD9: 719.46] Diagnosis: CHRONIC PAIN SYNDROME[ICD9: 338.4] Diagnosis: Ankle pain[ICD9: 719.47] Aicha Thompson MD, [facility] CPT-4: 88858 06/14/2014 ([id number]) 43600 EST. PATIENT, LEVEL III Diagnosis: Constipation[ICD9: 564.00] Diagnosis: Hemorrhoids[ICD9: 455.6] Valentina Thompson MD, [facility] CPT-4: 56592 01/19/2014 ([id number]) 01839 EST. PATIENT, LEVEL III Diagnosis: Ulcer of knee[ICD9: 707.19] Diagnosis: Hemorrhoids[ICD9: 455.6] Diagnosis: B12 deficiency[ICD9: 266.2] Diagnosis: ALLERGIC RHINITIS[ICD9: 477.9] Valentina Thompson MD, [facility] CPT-4: 53274 01/15/2014 ([id number]) 74426 EST. PATIENT, LEVEL IV Diagnosis: EDEMA[ICD9: 782.3] Diagnosis: Open wound of knee[ICD9: 891.0] Diagnosis: CHRONIC PAIN SYNDROME[ICD9: 338.4] Diagnosis: ANEMIA[ICD9: 285.9] Valentina Thompson MD, [facility] CPT-4: 93817 10/20/2013 ([id number]) 29357 EST. PATIENT, LEVEL III Diagnosis: ULCER OTH PART LOW LIMB[ICD9: 707.19] Valentina Thompson MD, [facility] CPT-4: 14399 07/24/2013 ([id number]) 88212 EST. PATIENT, LEVEL III Diagnosis: ULCER OTH PART LOW LIMB[ICD9: 707.19] Valentina Thompson MD, [facility] CPT-4: 00365 06/23/2013 ([id number]) 44743 EST. PATIENT, LEVEL III Diagnosis: ULCER OTH PART LOW LIMB[ICD9: 707.19] Valentina Thompson MD [facility] CPT-4: 46519 06/12/2013 ([id number]) Miscellaneous no charge Diagnosis: ULCER OTH PART LOW LIMB[ICD9: 707.19] Valentina Thomspon MD [facility] CPT-4: 86947 05/29/2013 ([id number]) 53505 EST. PATIENT, LEVEL III Diagnosis: ULCER OTH PART LOW LIMB[ICD9: 707.19] Valentina Thompson MD [facility] CPT-4: 72206 05/23/2013 ([id number]) Miscellaneous no charge Diagnosis: ULCER OTH PART LOW LIMB[ICD9: 707.19] Valentina Thompson MD [facility] CPT-4: 77210 05/19/2013 ([id number]) 78448 EST. PATIENT, LEVEL III Diagnosis: Ulcer of knee[ICD9: 707.19] Valentina Thompson MD [facility] CPT-4: 59390 05/16/2013 ([id number]) 97972 EST. PATIENT, LEVEL III Diagnosis: ALLERGIC RHINITIS[ICD9: 477.9] Aicha Thompson MD [facility] CPT- 4: 79322 03/06/2013 ([id number]) 37530 EST. PATIENT, LEVEL IV Diagnosis: Ankle pain[ICD9: 719.47] Diagnosis: ALLERGIC RHINITIS[ICD9: 477.9] Diagnosis: ESSENTIAL HYPERTENSION[SNOMED: 86208162] Aicha Thompson MD [facility] CPT-4: 03559 12/26/2012 ([id number]) 16430 EST. PATIENT, LEVEL IV Diagnosis: ESSENTIAL HYPERTENSION[SNOMED: 33389680] Diagnosis: JOINT PAIN-L/LEG[ICD9: 719.46] Diagnosis: GENERALIZED ANXIETY DISEASE[ICD9: 300.02] Diagnosis: UNSPECIFIED ASTHMA[ICD9: 493.90] Aicha Thompson MD [facility] CPT-4: 95210 11/21/2012 ([id number]) Miscellaneous no charge Diagnosis: Encounter for tuberculin skin test[ICD9: V74.1] Aicha Thompson MD [facility] CPT-4: 57617 09/28/2012 ([id number]) 08989 EST. PATIENT, LEVEL IV Diagnosis: FEVER NOS[ICD9: 780.60] Diagnosis: PNEUMONIA (CAP)[ICD9: 486] Aicha Thompson MD, [facility] CPT- 4: 66161 07/21/2012 ([id number]) 04861 EST. PATIENT, LEVEL IV Diagnosis: JOINT PAIN-ANKLE[ICD9: 719.47] Diagnosis: MUSCLE/LIGAMENT DIS NEC[ICD9: 728.89] Diagnosis: Fibromyalgia muscle pain[ICD9: 729.1] Aicha Thompson MD, [facility] CPT-4: 92140 07/13/2012 ([id number]) 36971 EST. PATIENT, LEVEL IV Diagnosis: Right foot pain[ICD9: 729.5] Diagnosis: Plantar fasciitis[ICD9: 728.71] Diagnosis: GENERALIZED ANXIETY DISEASE[ICD9: 300.02] Diagnosis: B-COMPLEX DEFIC NEC[ICD9: 266.2] Aicha Thompson MD, [facility] CPT-4: 79871 05/26/2012 ([id number]) 55641 EST. PATIENT, LEVEL IV Diagnosis: Chest wall pain[ICD9: 786.52] Diagnosis: Esophageal reflux[ICD9: 530.81] Diagnosis: ALLERGIC RHINITIS[ICD9: 477.9] Valentina Thompson MD, [facility] CPT-4: 84979 02/15/2012 ([id number]) 45081 EST. PATIENT, LEVEL IV Diagnosis: ALLERGIC RHINITIS[ICD9: 477.9] Diagnosis: HYPERLIPIDEMIA[ICD9: 272.4] Aicha Thompson MD, [facility] CPT- 4: 54696 01/13/2012 ([id number]) 68279 EST. PATIENT, LEVEL IV Diagnosis: JOINT PAIN-L/LEG[ICD9: 719.46] Diagnosis: UNSPECIFIED ASTHMA[ICD9: 493.90] Diagnosis: Costalchondritis[ICD9: 733.6] Aicha Thompson MD, [facility] CPT- 4: 71259 12/21/2011 ([id number]) 99914 EST. PATIENT, LEVEL IV Diagnosis: Hyperlipidemia[ICD9: 272.4] Diagnosis: ALLERGIC RHINITIS[ICD9: 477.9] Diagnosis: B12 deficiency[ICD9: 266.2] Diagnosis: Hypopotassemia[ICD9: 276.8] Valentina Thompson MD, [facility] CPT-4: 30153 10/02/2011 ([id number]) 97208 EST. PATIENT, LEVEL IV Diagnosis: Pain in joint involving forearm[ICD9: 719.43] Diagnosis: Neck pain[ICD9: 723.1] Diagnosis: Fall on same level from slipping, tripping, or stumbling[ICD9: E885.9 ] Diagnosis: B12 deficiency[ICD9: 266.2] Aicha Thompson MD, [facility] CPT- 4: 39100 09/01/2011 ([id number]) 20622 EST. PATIENT, LEVEL IV Diagnosis: Vulvovaginitis[ICD9: 616.10] Diagnosis: OVERWEIGHT[ICD9: 278.02] Diagnosis: MYALGIA AND MYOSITIS[ICD9: 729.1] Aicha Thompson MD, [facility] CPT-4: 17761 08/03/2011 ([id number]) 24630 EST. PATIENT, LEVEL IV Diagnosis: MUSCLE/LIGAMENT DIS NEC[ICD9: 728.89] Diagnosis: CHRONIC PAIN SYNDROME[ICD9: 338.4] Diagnosis: Weight gain[ICD9: 783.1] Aicha Thompson MD, [facility] CPT-4: 99127 06/29/2011 25655 EST. PATIENT, LEVEL IV Diagnosis: Wrist pain[ICD9: 719.43] Diagnosis: Knee pain, right[ICD9: 719.46] Diagnosis: Fall on same level from slipping, tripping, or stumbling[ICD9: E885.9 ] Aicha Thompson MD, [facility] CPT-4: 20144 06/22/2011 [id number] EST. PATIENT, LEVEL IV Diagnosis: MUSCLE/LIGAMENT DIS NEC[ICD9: 728.89] Diagnosis: JOINT PAIN-L/LEG[ICD9: 719.46] Diagnosis: OSTEOARTH NOS-UNSPEC[ICD9: 715.90] Diagnosis: B12 deficiency[ICD9: 266.2] Aicha Thompson MD, [facility] CPT- 4: 17712 06/11/2011 [id number] EST. 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 PATIENT, LEVEL IV Diagnosis: Knee pain, bilateral[ICD9: 719.46] Diagnosis: Iliotibial band syndrome[ICD9: 728.89] Diagnosis: Fibromyalgia syndrome[ICD9: 729.1] [facility] CPT-4: 35944 02/12/2011 [id number] EST. PATIENT, LEVEL IV Diagnosis: FALL FROM SLIPPING[ICD9: E885.9] Diagnosis: Pain in joint involving lower leg[ICD9: 719.46] Diagnosis: ESOPHAGEAL REFLUX[ICD9: 530.81] Diagnosis: ESSENTIAL HYPERTENSION[SNOMED: 70580572] Aicha Thompson [facility], [facility] CPT-4: 18915 01/29/2011 Plan of Care Planned Activity Notes [...] hydrocodone. 04/05/2018 Appointment: Aicha Thompson WPtel: [phone] [facility] [place] (30 min) Complex 04/05/2018 Patient Education: Patient Medication Summary Completed 04/05/2018 Appointment: Aicha Thompson WPtel: [phone] [facility] (15 min) Moderate 03/17/2018 Visit Plan: Hypertension [...] weeks 03/10/2018 Appointment: Valentina Smith WPtel: [phone] [phone] [place] (15 min) Moderate 03/10/2018 Appointment: Aicha Thompson WPtel: 101[address] [facility] [place] (15 min) Moderate 03/10/2018 Patient [...] appt scheduled 01/13/2018 Appointment: Valentina Smith WPtel: [facility]4 [phone] (15 min) Moderate 01/13/2018 Patient Education: [...] current medications. 11/25/2017 Appointment: Valentina Smith WPtel: [facility]6 [phone] (30 min) Complex 11/25/2017 Patient Education: Patient Medication Summary Completed 11/25/2017 Visit Plan: Contact dermatitis-discussed natural and expected course of this diagnosis and to alert me if symptoms do not resolve or if any worse. RX sent to patient's pharmacy and instructed on use. 10/19/2017 Appointment: Valentina Smith WPtel: [address] [place], [place] [phone] (15 min) Moderate 10/19/2017 Patient Education: Patient Medication Summary Completed 10/19/2017 Appointment: Valentina Smith WPtel: [address] [place], [place] [phone] (30 min) Complex 09/27/2017 Visit Plan: Generalized abd kqxf-WRU-rqathx cipro/flagyl- culture urine-recommend patient follow up with Dr Grace for an appt if abdominal pain does not improve Low potassium-check labs 09/17/2017 Visit Plan: Generalized abd paue-MED-slmquu cipro/flagyl- culture urine-recommend patient follow up with Dr Grace for an appt if abdominal pain does not improve Low potassium-check labs 09/17/2017 Appointment: Valentina Smith WPtel: [facility]5 [phone] (30 min) Complex 09/17/2017 Patient Education: [...] of over-medication. 09/06/2017 Appointment: Aicha Thompson WPtel: [facility]5 [facility] (30 min) Complex 09/06/2017 Patient Education: Patient Medication Summary Completed 09/06/2017 Appointment: Aicha Thompson WPtel: [facility]5 [facility] (30 min) Complex 09/02/2017 Appointment: Aicha Thompson WPtel: [address] [place], [place] [phone] (30 min) Complex 08/23/2017 Visit Plan: Headaches-neck pain-patient is to let us know which neurologist she wants to see B12 def-injection today in the office Hyperlipidemia-check labs Vitamin D def-check level 08/19/2017 Appointment: Valentina Smith WPtel: [facility]5 [phone] [place] (30 min) Complex 08/19/2017 Patient [...] the list of the neurologists that her customer contact specialist has recommended and we would consider [...] the list of the neurologists that her customer contact specialist has recommended and we would consider [...] the psychiatrist. 07/06/2017 Appointment: Aicha Thompson WPtel: [facility]5 [facility] (30 min) Complex 07/06/2017 Patient Education: Patient Medication Summary Completed 07/06/2017 Appointment: Aicha Thompson WPtel: [address] [place] [address] (30 min) Complex 07/05/2017 Appointment: Valentina Smith WPtel: [address] [place], [place] [phone] (30 min) Complex 05/17/2017 Appointment: Beatriz Mojica WPtel: [facility]5 [facility] (30 min) Complex 05/14/2017 Visit Plan: Neck nrwh-jvubrmn-gasfkhl to continue f/u with [facility]-her symptoms have [...] plan. 04/27/2017 Appointment: Valentina Smith WPtel: [facility]3 [phone] (30 min) Complex 04/27/2017 Patient Education: Patient Medication Summary Completed 04/27/2017 Patient Education: Obesity Completed 04/27/2017 Visit Plan: Hemorrhoidal skin tag-no acute inflammation today -may use hemorrhoid cream as directed as needed-call with any concerns, bleeding, etc. 04/06/2017 Appointment: Valentina Smith WPtel: [address] [place], [place] [phone] (30 min) Complex 04/06/2017 Patient Education: Patient Medication Summary Completed 04/06/2017 Patient Education: Obesity Completed 04/06/2017 Visit Plan: Bilateral foot and ankle pain-now has AFOs-we have made her several appt with podiatrists which she has not kept-recommend patient call Dr Saunders and reschedule appt with him. Neck pain-[facility] appt next week-KEEP APPOINTMENT! 02/25/2017 Appointment: Valentina Smith WPtel: [facility]5 [phone] (30 min) Complex 02/25/2017 Patient Education: [...] podiatry for evaluation-wants to see someone in [place] 11/17/2016 Appointment: Valentina Smith WPtel: [facility]5 [phone] (30 min) Complex 11/17/2016 Patient Education: Patient Medication Summary Completed 11/17/2016 Appointment: Valentina Smithtel: [facility]5 [phone] (30 min) Complex 11/16/2016 Visit Plan: [place] referral - pt to indicate when and who she would like to go to - for neck and back AFO for both legs - [facility] in [place], [place]- fax #[phone] pt has been seen by community product specialist - need brace because of bilateral [...] over- medication. 10/12/2016 Appointment: [facility] Thompson [facility]el[facility] ([facility] 10/12/2016 Patient Education: Patient Medication Summary Completed 10/12/2016 Patient Education: Obesity Completed 10/12/2016 Appointment: Injection 09/11/2016 Patient Education: Patient Medication Summary Completed 09/11/2016 Visit Plan: Right ankle pain/instability-xray negative- will obtain MRI ankle Ulcer right foot-instructed patient on wound care and the importance of keeping wound clean-f/u in 10-14 days for re-evaluation 08/18/2016 Appointment: Valentina Smith WPtel: [phone] (30 min) Complex 08/18/2016 Patient Education: Patient Medication Summary Completed 08/18/2016 Patient Education: Obesity Completed 08/18/2016 Care Plan: X-RAY EXAM NECK SPINE 2-3 VW LOINC : 58351-9 Pending 08/15/2016 Visit Plan: Vaginal yeast infection-RX for diflucan B12 deficiency-check labs 08/07/2016 Appointment: Valentina Smith WPtel: [facility]8 [phone] (30 min) Complex 08/07/2016 Patient Education: Patient Medication Summary Completed 08/07/2016 Visit Plan: Cervical stenosis-saw Dr Ramey-Dr Ramey is going to send her to for further evaluation Bilateral ankle pain-xray ankles 07/31/2016 Appointment: Valentina Smith WPtel: [facility]5 [phone] (30 min) Complex 07/31/2016 Patient Education: Patient Medication Summary Completed 07/31/2016 Patient Education: Obesity Completed 07/31/2016 Visit Plan: Neck pain after fall - Will check x-ray, Pt is to follow up with Dr. Perez. Pt is to notify clinic if symptoms do not improve , if they worsen, or with any questions or concerns. 07/15/2016 Appointment: Beatriz Mojica WPtel: [facility] (30 min) Complex 07/15/2016 Patient Education: [...] Appointment: Injection 07/03/2016 Appointment: Valentina Smith WPtel: [facility]6 [phone] (30 min) Complex 07/03/2016 Patient Education: [...] despite PT. 05/07/2016 Appointment: Valentina Smith WPtel: [phone] (30 min) [facility] 05/07/2016 Patient Education: Patient Medication Summary Completed 05/07/2016 Patient Education: Obesity Completed 05/07/2016 Care Plan: MRI NECK SPINE W/O DYE LOINC : 03196-4 Pending 05/07/2016 Visit Plan: Chronic Depression and [...] symptoms 04/20/2016 Appointment: Valentina Smith WPtel: [phone] [phone] [place] (30 min) Complex 04/20/2016 Patient Education: Patient Medication Summary Completed 04/20/2016 Appointment: Valentina Smith WPtel: [phone] [phone] (30 min) Complex 03/19/2016 Visit Plan: [...] Ibarra 03/17/2016 Appointment: Valentina Smith WPtel: [facility]9 [phone] [place] (30 min) Complex 03/17/2016 Patient [...] current medications. 02/28/2016 Appointment: Valentina Smith WPtel: [address] [place] [address] (15 min) Moderate 02/28/2016 Patient Education: Patient Medication Summary Completed 02/28/2016 Appointment: Valentina Smith WPtel: [address] [place] [address] (30 min) Complex 02/27/2016 Visit Plan: Hypertension [...] level 02/13/2016 Appointment: Valentina Smith WPtel: [facility]5 [phone] (30 min) Complex 02/13/2016 Patient Education: [...] Completed 02/03/2016 Care Plan: SCREENINGMAMMOGRAPHYDIGITAL LOINC : 43300-1 Pending 02/03/2016 Appointment: Injection 01/15/2016 Appointment: Lab [...] EXAM NECK SPINE 2-3 VW LOINC : 88079-6 Ordered 08/15/2015 Visit Plan: Anxiety-fairly well controlled-does [...] side effects. 05/08/2015 Appointment: Aicha Thompson WPtel: [facility] (30 min) Complex 05/08/2015 Patient [...] Care Plan: COMPLETE CBC AUTOMATED LOINC : 88680-7 Ordered 10/05/2014 Visit Plan: Chronic Pain Syndrome - pt has chronic pain - has been maintained on current medications, has not sought out other medications , only uses PRN pain medications as directed, and understands the consequences of over-medication. Right hip/knee/ankle pain-improving since last fall- continue physical therapy exercises-continue supportive shoes and use walker for stability 06/14/2014 Appointment: Valentina Smith [facility]Ptel: [phone] Follow up 06/14/2014 Patient Education: Patient Medication [...] given to her from her director of reimbursement and she is to call him if her constipation is uncontrolled. Hemorrhoids-use suppositories as directed. 01/19/2014 Patient Education: Patient Medication Summary Completed 01/19/2014 Visit Plan: Ulcer of uebh-bryuwkw-qsrnw instructions provided today and instructed patient to return as directed-keep wound clean and dry. Hemorrhoids-refill anusol suppositories and use as directed B12 deficiency-b12 injection today in the office Okmocxvyh-djuqnunyggnd-clzxdes injection today in the office-continue oral medications [...] Anemia-check labs 10/20/2013 Appointment: Valentina Smith WPtel: [address] [place], [place] [phone] [place] Other 10/20/2013 Patient Education: Patient Medication Summary Completed 10/20/2013 Appointment: Valentina Smith WPtel: [facility]5 [phone] [place] Injection 08/21/2013 Appointment: Aicha Thompson WPtel: [address] [place], [place] [address] [place] Follow up 07/31/2013 Visit Plan: Ulcer of knee healing-silver nitrate to granulation tissue-instructed patient to monitor and call if it does not completely heal for appointment-instructed on wound care-patient and mother verbalized understanding of plan. 07/24/2013 Patient Education: Patient Medication Summary Completed 07/24/2013 Patient Education: Patient Medication Summary Completed 07/24/2013 Appointment: Valentina Smith WPtel: [address] [place], [place] [phone] Follow up 07/03/2013 Visit Plan: Ulcer-left knee-fibrous tissue removed from wound bed to reveal pink granulation tissue-wound cleansed and dressing applied. Instructed patient on wound care. Return in 10 days for follow up. 06/23/2013 Appointment: Valentina Smith WPtel: [address] [place], [place] [phone] Follow up 06/23/2013 Patient Education: Patient Medication Summary Completed 06/23/2013 Appointment: Valentina Smith WPtel: [address] [place], [place] [phone] Follow up 06/22/2013 Appointment: Aicha Thompson WPtel: [address] [place], [place] [phone] Follow up 06/22/2013 Visit Plan: Ulcer-left knee-fibrous tissue removed from wound bed to reveal pink granulation tissue-wound cleansed and dressing applied. Instructed patient on wound care. Return in 10 days for follow up. 06/12/2013 Appointment: Valentina Smith WPtel: [address] [place], [place] [phone] Follow up 06/12/2013 Patient Education: Patient Medication Summary Completed 06/12/2013 Appointment: Aicha Thompson WPtel: [address] [place] [address] Follow up 06/08/2013 Visit Plan: Ulcer left ytzn-xpxyxdfb-n/u in 10 days 05/29/2013 Appointment: Valentina Smith WPtel: [address] [place], [place] [phone] Follow up 05/29/2013 Patient Education: Patient Medication Summary Completed 05/29/2013 Visit Plan: Ulcer of knee-sharp debridement today in the office--wound care instructions provided for patient-patient and mother verbalized understanding of plan. Follow up next week. 05/23/2013 Appointment: Valentina Smith WPtel: [address] [place], [place] [phone] [place] Follow up 05/23/2013 Patient Education: Patient Medication Summary Completed 05/23/2013 Appointment: Valentina Smith WPtel: [address] [place], [place] [phone] Follow up 05/22/2013 Visit Plan: Ulcer of knee-wound care instructions provided for patient-patient and mother verbalized understanding of plan. 05/19/2013 Appointment: Valentina Smith WPtel: [address] [place], [place] [phone] Other 05/19/2013 Patient Education: Patient Medication Summary Completed 05/19/2013 Visit Plan: Ulcer of knee-fibrous tissue debrided today in the office--wound care instructions provided for patient-return in 1 week for follow up. 05/16/2013 Appointment: Valentina Smith WPtel: [address] [place], [place] [phone] Hospital follow up 05/16/2013 Patient Education: Patient Medication Summary Completed 05/16/2013 Appointment: Aicha Thompson WPtel: [address] [place], [place] [phone] Injection 05/10/2013 Patient Education: Patient Medication Summary [...] the office. 03/06/2013 Appointment: Valentina Smith WPtel: [address] [place], [place] [phone] Other 03/06/2013 Patient Education: Patient Medication Summary Completed 03/06/2013 Appointment: Aicha Thompson WPtel: [address] [place], [place] [phone] Nurse Visit 02/20/2013 Patient Education: Patient Medication Summary Completed 02/20/2013 [facility]ointment: [phone] [place] Follow up 01/16/2013 Visit Plan: [...] concerns. 12/26/2012 Appointment: [facility]ich[facility] Thompson [facility]Ptel: [facility] [place] Other 12/26/2012 Patient Education: Patient Medication Summary Completed 12/26/2012 Patient Education: Hypertension Completed 12/26/2012 Appointment: [facility] Thompson [facility]Ptel[phone] [facility] Draw 12/21/2012 Patient Education: [...] monitor for acute changes 11/21/2012 Appointment: Aicha Thmopson WPtel: [facility] [place] Follow up 11/21/2012 Patient Education: Patient Medication Summary Completed 11/21/2012 Patient Education: Hypertension Completed 11/21/2012 Appointment: Aicha Thompson WPtel: [facility] [place] Injection 11/16/2012 Patient Education: Patient Medication Summary Completed 11/16/2012 Appointment: Aicha Thompson [facility]Ptel: [phone] [place] Injection 09/28/2012 Patient Education: Patient Medication Summary Completed 09/28/2012 Appointment: Aicha Thompson [facility]Ptel: [facility] [place] Injection 09/26/2012 Patient Education: Patient Medication Summary Completed 09/26/2012 Appointment: Aicha Thompson [facility]Ptel: [facility] [place] Injection 09/12/2012 Patient Education: Patient Medication Summary Completed 09/12/2012 Appointment: Aicha Thompson [facility]Ptel: [facility] [place] Injection 08/11/2012 Patient Education: [...] management sparingly. 07/13/2012 Appointment: Aicha Thompson WPtel: [address] [place] [address] Other 07/13/2012 Patient Education: Patient Medication Summary [...] in medications 05/26/2012 Appointment: Valentina Smith WPtel: [address] [place] [phone] Other 05/26/2012 Patient Education: Patient Medication Summary Completed 05/26/2012 Appointment: Valentina Smith WPtel: [address] [place], [place] [phone] Sick 03/15/2012 Appointment: Aicha Thompsontel: [facility] [place] Injection 03/02/2012 Patient Education: Patient [...] the medication. 02/15/2012 Appointment: Valentina Smith WPtel: [phone] [phone] Other 02/15/2012 Patient Education: Patient Medication [...] to medications 01/13/2012 Appointment: Valentina Smith WPtel: [phone] Other 01/13/2012 Patient Education: Patient Medication Summary Completed 01/13/2012 Appointment: Valentina Smith WPtel: [phone] [phone] Other 01/06/2012 Visit Plan: Asthma - chest xray and symbicort sample today. Patellofemoral syndrome- recommended physical therapy. Costochondritis - recommended pt to use antiinflammatories as able for treatment of rib/sternum irritation and for pt to call if her symptoms do not improve. 12/21/2011 Appointment: Aicha Thompson WPtel: 1015 [facility] Other 12/21/2011 Patient Education: Patient Medication [...] def-injection today in the office. 10/02/2011 Appointment: aVlentina Smith WPtel: [phone] [phone] Other 10/02/2011 Patient Education: Patient Medication Summary Completed 10/02/2011 Visit Plan: Pain in joints-arms, elbows-recent fall- discussed natural and expected course of this diagnosis and to alert me if symptoms do not follow expected course, or if any worse. Patient verbalized understanding. Neck mgil-lcczbyu-casoojiwt physical therapy-patient declined at this time-going to see the gang supervisor this afternoon. B12 deficiency-B12 injection today in the office. 09/01/2011 Appointment: Valentina Smith WPtel: [phone] [phone] Other 09/01/2011 Patient Education: Patient Medication [...] management sparingly. 08/03/2011 Appointment: Aicha Thompson WPtel: [facility]5 [facility] Follow up 08/03/2011 Patient Education: Patient [...] HER PAIN. 06/29/2011 Appointment: Aicha Thompson WPtel: [facility]5 [facility] Follow up 06/29/2011 Patient Education: Patient Medication Summary Completed 06/29/2011 Appointment: Aicha Thompson [facility]Ptel: [facility] Other 06/24/2011 Visit Plan: Right knee pain, bilateral wrist pain-recent fall-discussed natural and expected course of this diagnosis and to alert me if symptoms do not follow expected course, or if any worse. Patient verbalized understanding. Recommend follow up with Ortho physician if pain persists. 06/22/2011 Appointment: Valentina Smith [facility]Ptel: [phone] Other 06/22/2011 Patient Education: Patient Medication Summary Completed 06/22/2011 Visit Plan: Knee and Ankle pain and instability- recommend re-evaluation by an public affairs specialist at [facility] [address] [place] [address]. Pt has been recommended to go back to Dr. Corbin at [facility] [...] fibromyalgia. 06/11/2011 Appointment: Aicha Thompson [facility]Ptel: [facility] [place] Injection 06/11/2011 Appointment: Aicha Thompson [facility]Ptel: [facility] [place] Other 06/11/2011 Patient Education: Patient Medication Summary Completed 06/11/2011 Visit Plan: Knee and Ankle pain and instability- recommend evaluation by an public affairs specialist at [facility]. The pt has been previously [...] appearance. 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 I have recommend use of biofreeze to the right outer leg. I have given pt stretching exercises for home. Fibromyalgia - chronic - continue with exercise, heat, and prn pain medication. Knee pain - apparently resolved prior to her appointment today. No change in present management, call if pain returns. 02/12/2011 Appointment: Aicha Thompson WPtel: [address] [place], [place] [phone] Other 02/12/2011 Patient Education: Patient Medication Summary [...] appt with Dr Ibarra . Ulcer left vsrj-nvmchypt-w/u in 10 days . Hemorrhoidal skin tag-no acute inflammation today -may use hemorrhoid cream as directed as needed-call with any concerns, bleeding, etc. sleep study -[facility] . Headaches-patient is not wearing her CPAP and i suspect this may be contributing to her headaches-will contact [facility] for a new sleep study Neck pain -spinal stenosis -[facility] has attempted to contact patient with no response from [facility]-I have instructed her to call them and get appt scheduled Dr Saunders -[facility] . Bilateral foot and [...] legs - [facility] in [place], [place]- fax # [phone] pt has been seen by community product specialist - need brace because of bilateral [...] given to her from her director of reimbursement and she is to call him if her constipation is uncontrolled. Hemorrhoids-use suppositories as directed. . Anxiety-fairly well controlled-does have added stress with family-no change in medications-call if symptoms worsen Neck pain-recommend rest, ice and anti inflammatories as directed-call if symptoms do not resolve or if any worse. Patient verbalized understanding of plan. . iliotibial band syndrome - continue with current treatment per gang supervisor. I have recommend use of biofreeze to [...] and instability- recommend re- evaluation by an public affairs specialist at [facility] the [address] [place] [address]. Pt has been recommended to go back to Dr. Corbin at [facility] the [address] [place] [address] as my office did not get a [...] for treatment of fibromyalgia. REFER TO [facility] DX BILATERAL FOOT AND ANKLE PAIN . Bilateral foot pain-foot drop-patient getting AFOs-refer to podiatry for evaluation-wants to see someone in [place] MRI NECK AND BRAIN Call [facility] [...] the list of the neurologists that her customer contact specialist has recommended and we would consider [...] the list of the neurologists that her customer contact specialist has recommended and we would consider [...] if any worse. Patient verbalized understanding. Neck hgxz-rqmodbz-jwgrxrarb physical therapy-patient declined at this time- going to see the gang supervisor this afternoon. B12 deficiency-B12 injection today in [...] today in the office. . Ulcer of jnjo-tmjuphp-ksekz instructions provided today and instructed patient to return as directed-keep wound clean and dry. Hemorrhoids-refill anusol suppositories and use as directed B12 deficiency-b12 injection today in the office Kqgasoxle-lmkdlyakikoy-qwqzfco injection today in the office-continue oral medications [...] pressure readings at home. . Generalized abd mbzb-LVQ-evfynt cipro/flagyl-culture urine-recommend patient follow up with Dr Grace for an appt if abdominal pain does not improve Low potassium-check labs . Generalized abd ctyc-AVJ-lrzmlv cipro/flagyl-culture urine-recommend patient follow up with Dr [...] for acute changes B12 injection . Neck wkwe-eaplmqe-cxfwtnq to continue f/u with [facility]-her symptoms have [...] regimen-no changes in medications Dr. Ramey - [facility] . Hypertension - well controlled [...] pain and instability- recommend evaluation by an public affairs specialist at [facility]. The pt has been previously [...] (may be called three old goats) at [facility] and home. . Hypertension - well controlled [...]
--- OUTSIDE RECORDS SUMMARY | 2018-08-03 08:26 | XMS REPORT | CCD ---
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 Name Role Phone PP Unavailable CCM Unavailable Summary Purpose Interface Exchange Insurance Providers Payer name Policy type / Coverage type Covered democrat ID Effective Begin Date Effective End Date WPS Medicare Part B Medicare Part B [id number] 2013 Unknown [facility] Medicare Part B [id number] 2013 Unknown Family history Grandmother Diagnosis Age [...] status Unknown 01/29/[address]: 061965824 Never smoker 01/29/[address]: 750697 Currently drinks alcohol mixed drink before bed [...] sleep apnea Unknown Active 05/14/2011 Unknown 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 03/11/2011 Unknown Overweight (BMI [...] Active sleep apnea Unknown 05/14/2011 Active 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 03/11/2011 Active Overweight (BMI 25.0-29.9) [...] Fill Instructions Valium 10 mg tablet RxNorm: 299057 1 Tablet(s) daily as needed 04/18/2018 06/16/2018 Active Claritin-D 12 Hour 5 mg-120 mg tablet,extended release RxNorm: 4796372 Tablet(s) as needed TAKE 1 TABLET BY MOUTH TWICE DAILY NEEDED 201706/12/2018 Active tramadol 50 mg tablet RxNorm: 910226 1-2 Tablet(s) PO TID as needed 03/10/2018 04/08/2018 Inactive cyanocobalamin (vit B-12) 1,000 mcg/mL injection solution RxNorm: 401000 1 Milliliter(s) Inj 03/10/2018 03/10/2018 Inactive Seroquel 100 mg tablet RxNorm: 209043 1 TABLET(S) PO BID 201703/01/2019 Active TAKE 1 TABLET BY MOUTH TWICE DAILY hydrocodone 10 mg-acetaminophen 325 mg tablet RxNorm: 036794 1-2 Tablet(s) PO Q6 as needed for pain 02/21/2018 03/09/2018 Inactive Ventolin HFA 90 mcg/actuation aerosol inhaler RxNorm: 290140 1 OR 2 PUFF(S) INH Q6 PRN NEEDED 01/13/2018 07/11/2018 Active trazodone 100 mg tablet RxNorm: 288996 TABLET(S) TAKE 2 TABLETS BY MOUTH EVERY NIGHT AT BEDTIME 12/07/2017 09/02/2018 Active hydrocodone 10 mg-acetaminophen 325 mg tablet RxNorm: 685627 1-2 Tablet(s) PO Q6 as needed for pain 12/03/2017 12/25/2017 Inactive Ventolin HFA 90 mcg/actuation aerosol inhaler RxNorm: 287757 1 OR 2 PUFF(S) INH Q6 PRN NEEDED 11/26/2017 01/12/2018 Inactive Savella 100 mg tablet RxNorm: 650246 TABLET(S) PO TAKE 1 TABLET BY MOUTH DAILY 11/23/2017 No Stop Date Active Effexor XR 150 mg capsule,extended release RxNorm: 303582 1 CAPSULE(S) PO BID 1 CAPSULE(S) PO BID 11/23/2017 04/21/2018 Active TAKE 1 CAPSULE BY MOUTH TWICE DAILY Claritin-D 12 Hour 5 mg-120 mg tablet,extended release RxNorm: 8249363 Tablet(s) as needed TAKE 1 TABLET BY MOUTH TWICE DAILY NEEDED 201701/20/2018 Inactive diazepam 10 mg tablet RxNorm: 955630 Tablet(s) TAKE 1 TABLET BY MOUTH FOUR TIMES DAILY NEEDED 11/23/2017 03/09/2018 Inactive Valium 10 mg tablet RxNorm: 967931 1 Tablet(s) QID as needed 11/16/2017 01/14/2018 Inactive metoprolol tartrate 25 mg tablet RxNorm: 668927 TABLET(S) TABLET(S) 1/2 TABLET(S) PO BID TAKE 1/2 TABLET BY MOUTH TWICE DAILY 11/12/2017 No Stop Date Active pantoprazole 40 mg tablet,delayed release RxNorm: 824556 TAKE 1 TABLET BY MOUTH EVERY DAY 11/12/2017 05/10/2018 Active betamethasone dipropionate 0.05 % topical cream RxNorm: 773978 1 APPLICATION TOP BID 10/22/2017 11/04/2017 Inactive tramadol 50 mg tablet RxNorm: 258312 1-2 Tablet(s) PO TID as needed 10/20/2017 01/16/2018 Inactive prednisone 10 mg tablets in a dose pack RxNorm: 586127 1 Tablet(s) PO UD 10/19/2017 10/24/2017 Inactive 6-5-4-3-2-1 cyanocobalamin (vit B-12) 1,000 mcg/mL injection solution RxNorm: 551629 1 Milliliter(s) Inj 10/19/2017 10/19/2017 Inactive betamethasone dipropionate 0.05 % topical cream RxNorm: 085696 1 Application TOP BID 10/19/2017 10/21/2017 Inactive hydrocodone 10 mg-acetaminophen 325 mg tablet RxNorm: 821144 1-2 Tablet(s) PO Q6 as needed for pain 10/19/2017 11/10/2017 Inactive Effexor XR 150 mg capsule,extended release RxNorm: 308634 1 Capsule(s) PO BID 1 CAPSULE(S) PO BID 10/19/2017 11/22/2017 Inactive TAKE 1 CAPSULE BY MOUTH TWICE DAILY prednisone 5 mg tablet RxNorm: 949186 1 Tablet(s) PO UD 2017 No Stop Date Active Cipro 500 mg tablet RxNorm: 863741 1 Tablet(s) PO BID 201709/26/2017 Inactive Flagyl 500 mg tablet RxNorm: 274591 1 Tablet(s) PO TID 201709/26/2017 Inactive prednisone 10 mg tablet RxNorm: 464349 1 Tablet(s) PO UD 201709/16/2017 Inactive 2 tabs daily x 3 days 1 tab daily x 3 daily then resume usual 5mg daily hydrocodone 10 mg-acetaminophen 325 mg tablet RxNorm: 714901 1-2 Tablet(s) PO Q6 as needed for pain 09/10/2017 10/02/2017 Inactive Savella 100 mg tablet RxNorm: 864451 TABLET(S) PO TAKE 1 TABLET BY MOUTH DAILY 08/31/2017 No Stop Date Active cyanocobalamin (vit B-12) 1,000 mcg/mL injection solution RxNorm: 655498 1 Milliliter(s) Inj 08/19/2017 08/19/2017 Inactive pantoprazole 40 mg tablet,delayed release RxNorm: 710837 TAKE 1 TABLET BY MOUTH EVERY DAY 08/17/2017 11/11/2017 Inactive trazodone 100 mg tablet RxNorm: 984883 TABLET(S) TAKE 2 TABLETS BY MOUTH EVERY NIGHT AT BEDTIME 08/17/2017 12/06/2017 Inactive Ventolin HFA 90 mcg/actuation aerosol inhaler RxNorm: 526952 1 OR 2 PUFF(S) INH Q6 PRN NEEDED 08/11/2017 01/07/2018 Inactive Advair Diskus 250 mcg-50 mcg/dose powder for inhalation RxNorm: 3814783 1 Puff(s) INH BID 08/11/2017 12/08/2017 Inactive Advair Diskus 250 mcg-50 mcg/dose powder for inhalation RxNorm: 1458824 1 PUFF(S) INH BID 08/11/2017 11/08/2017 Inactive Ventolin HFA 90 mcg/actuation aerosol inhaler RxNorm: 562258 1 OR 2 PUFF(S) INH Q6 PRN NEEDED 08/11/2017 11/25/2017 Inactive hydrocodone 10 mg-acetaminophen 325 mg tablet RxNorm: 686807 1-2 Tablet(s) PO Q6 as needed for pain 08/03/2017 08/25/2017 Inactive tramadol 50 mg tablet RxNorm: 912170 1-2 Tablet(s) PO TID as needed 07/26/2017 09/22/2017 Inactive Valium 10 mg tablet RxNorm: 873504 1 Tablet(s) QID as needed 07/09/2017 09/06/2017 Inactive Effexor XR 150 mg capsule,extended release RxNorm: 921788 Capsule(s) 1 CAPSULE(S) PO BID 07/07/2017 10/18/2017 Inactive TAKE 1 CAPSULE BY MOUTH TWICE DAILY metoprolol tartrate 25 mg tablet RxNorm: 868075 Tablet(s) TABLET(S) 1/2 TABLET(S) PO BID TAKE 1/2 TABLET BY MOUTH TWICE DAILY 07/07/2017 11/11/2017 Inactive diazepam 10 mg tablet RxNorm: 499913 Tablet(s) TAKE 1 TABLET BY MOUTH FOUR TIMES DAILY NEEDED 07/07/2017 08/02/2017 Inactive cyanocobalamin (vit B-12) 1,000 mcg/mL injection solution RxNorm: 264311 1 Milliliter(s) Inj 07/06/2017 07/06/2017 Inactive tramadol 50 mg tablet RxNorm: 239477 1-2 Tablet(s) PO TID as needed 06/21/2017 09/17/2017 Inactive hydrocodone 10 mg-acetaminophen 325 mg tablet RxNorm: 672473 1-2 Tablet(s) PO Q6 as needed for pain 06/17/2017 07/09/2017 Inactive cyclobenzaprine 10 mg tablet RxNorm: 421183 TAKE 1 TABLET BY MOUTH THREE TIMES DAILY NEEDED FOR MUSCLE SPASMS 06/08/2017 08/31/2018 Active Lipitor 20 mg tablet RxNorm: 322470 1 TABLET(S) PO DAILY 201706/02/2018 Active TAKE ONE TABLET BY MOUTH EVERY NIGHT AT BEDTIME Claritin-D 12 Hour 5 mg-120 mg tablet,extended release RxNorm: 4086078 Tablet(s) as needed TAKE 1 TABLET BY MOUTH TWICE DAILY NEEDED 201709/04/2017 Inactive trazodone 100 mg tablet RxNorm: 703577 TABLET(S) TAKE 2 TABLETS BY MOUTH EVERY NIGHT AT BEDTIME 05/17/2017 08/14/2017 Inactive cyclobenzaprine 5 mg tablet RxNorm: 979661 Tablet(s) PO TAKE 1 TABLET BY MOUTH THREE TIMES DAILY NEEDED FOR MUSCLE SPASMS (New dose has not been sent to pharmacy) 05/11/2017 No Stop Date Active Valium 5 mg tablet RxNorm: 815551 1 Tablet(s) PO QID as needed (New dose has not been sent to pharmacy) 05/11/2017 No Stop Date Active diazepam 10 mg tablet RxNorm: 962405 TAKE 1 TABLET BY MOUTH FOUR TIMES DAILY NEEDED 04/28/2017 05/27/2017 Inactive hydrocodone 10 mg-acetaminophen 325 mg tablet RxNorm: 733887 1-2 Tablet(s) PO Q6 as needed for pain 04/27/2017 05/19/2017 Inactive cyanocobalamin (vit B-12) 1,000 mcg/mL injection solution RxNorm: 088715 1 Milliliter(s) Inj 04/27/2017 04/27/2017 Inactive hydrocodone 10 mg-acetaminophen 325 mg tablet RxNorm: 363017 1-2 Tablet(s) PO Q6 as needed for pain 03/17/2017 04/08/2017 Inactive Seroquel 100 mg tablet RxNorm: 700750 1 TABLET(S) PO BID 201603/06/2018 Inactive TAKE 1 TABLET BY MOUTH TWICE DAILY Valium 10 mg tablet RxNorm: 098573 1 Tablet(s) QID as needed 03/05/2017 05/03/2017 Inactive Claritin-D 12 Hour 5 mg-120 mg tablet,extended release RxNorm: 6826808 Tablet(s) as needed TAKE 1 TABLET BY MOUTH TWICE DAILY NEEDED 201604/13/2018 Inactive pantoprazole 40 mg tablet,delayed release RxNorm: 745805 TAKE 1 TABLET BY MOUTH EVERY DAY 02/26/2017 08/16/2017 Inactive tramadol 50 mg tablet RxNorm: 184930 1-2 Tablet(s) PO TID as needed 02/17/2017 05/17/2017 Inactive hydrocodone 10 mg-acetaminophen 325 mg tablet RxNorm: 782220 1-2 Tablet(s) PO Q6 as needed for pain 02/17/2017 03/11/2017 Inactive Valium 10 mg tablet RxNorm: 569368 1 Tablet(s) QID as needed 02/02/2017 03/03/2017 Inactive (Response to an electronic controlled substance refill request [id number]|1|0|1) nystatin 100,000 unit/gram topical powder RxNorm: 449580 1 APPLICATION TOP QID UNTIL HEALED 01/21/2017 No Stop Date Active Advair Diskus 250 mcg-50 mcg/dose powder for inhalation RxNorm: 4829952 1 Puff(s) INH BID 01/21/2017 05/20/2017 Inactive hydrocodone 10 mg-acetaminophen 325 mg tablet RxNorm: 041149 1-2 Tablet(s) PO Q6 as needed for pain 01/21/2017 02/11/2017 Inactive metoprolol tartrate 25 mg tablet RxNorm: 946463 TABLET(S) 1/2 TABLET(S) PO BID TAKE 1/2 TABLET BY MOUTH TWICE DAILY 01/18/2017 07/06/2017 Inactive Effexor XR 150 mg capsule,extended release RxNorm: 000430 1 CAPSULE(S) PO BID 01/11/2017 07/06/2017 Inactive TAKE 1 CAPSULE BY MOUTH TWICE DAILY Effexor XR 150 mg capsule,extended release RxNorm: 552495 1 Capsule(s) PO BID 1 CAPSULE(S) PO BID 01/08/2017 07/06/2017 Inactive TAKE 1 CAPSULE BY MOUTH TWICE DAILY nystatin 100,000 unit/gram topical powder RxNorm: 941607 1 APPLICATION TOP QID UNTIL HEALED 12/17/2016 01/20/2017 Inactive hydrocodone 10 mg-acetaminophen 325 mg tablet RxNorm: 659736 1-2 Tablet(s) PO Q6 as needed for pain 12/17/2016 01/07/2017 Inactive Claritin-D 12 Hour 5 mg-120 mg tablet,extended release RxNorm: 1332952 Tablet(s) as needed TAKE 1 TABLET BY MOUTH TWICE DAILY NEEDED 201602/12/2017 Inactive Lipitor 20 mg tablet RxNorm: 021818 1 TABLET(S) PO DAILY 201606/07/2017 Inactive TAKE ONE TABLET BY MOUTH EVERY NIGHT AT BEDTIME Advair Diskus 250 mcg-50 mcg/dose powder for inhalation RxNorm: 7914779 1 Puff(s) INH BID 11/26/2016 01/20/2017 Inactive Valium 10 mg tablet RxNorm: 577294 1 Tablet(s) QID as needed 11/24/2016 01/22/2017 Inactive (Response to an electronic controlled substance refill request - RxReferenceNumber: [id number]|1|0|1) cyanocobalamin (vit B-12) 1,000 mcg/mL injection solution RxNorm: 995113 1 Milliliter(s) Inj 11/17/2016 11/17/2016 Inactive tramadol 50 mg tablet RxNorm: 656986 1-2 Tablet(s) PO TID as needed 11/06/2016 10/19/2017 Inactive hydrocodone 10 mg-acetaminophen 325 mg tablet RxNorm: 902635 1-2 Tablet(s) PO Q6 as needed for pain 11/06/2016 11/27/2016 Inactive nystatin 100,000 unit/gram topical powder RxNorm: 507816 1 Application TOP QID until healed 10/27/2016 12/16/2016 Inactive cyanocobalamin (vit B-12) 1,000 mcg/mL injection solution RxNorm: 533591 1 Milliliter(s) Inj 10/12/2016 10/12/2016 Inactive trazodone 100 mg tablet RxNorm: 330432 Tablet(s) TAKE 2 TABLETS BY MOUTH EVERY NIGHT AT BEDTIME 09/24/2016 03/22/2017 Inactive Valium 10 mg tablet RxNorm: 926161 1 Tablet(s) QID as needed 09/24/2016 11/22/2016 Inactive (Response to an electronic controlled substance refill request - RxReferenceNumber: [id number]|1|0|1) Savella 100 mg tablet RxNorm: 749895 TABLET(S) PO TAKE 1 TABLET BY MOUTH DAILY 09/18/2016 08/30/2017 Inactive pantoprazole 40 mg tablet,delayed release RxNorm: 738284 TAKE 1 TABLET BY MOUTH EVERY DAY 09/18/2016 02/25/2017 Inactive cyanocobalamin (vit B-12) 1,000 mcg/mL injection solution RxNorm: 891261 1 Milliliter(s) Inj 09/11/2016 09/11/2016 Inactive hydrocodone 10 mg-acetaminophen 325 mg tablet RxNorm: 100131 1-2 Tablet(s) PO Q6 as needed for pain 08/24/2016 11/05/2016 Inactive (Response to an electronic controlled substance refill request - RxReferenceNumber: [id number]|1|0|1) Claritin-D 12 Hour 5 mg-120 mg tablet,extended release RxNorm: 0132160 Tablet(s) TAKE 1 TABLET BY MOUTH TWICE DAILY NEEDED 08/13/2016 04/13/2018 Inactive tramadol 50 mg tablet RxNorm: 035689 1-2 Tablet(s) PO TID PRN as needed 08/11/2016 11/05/2016 Inactive metoprolol tartrate 25 mg tablet RxNorm: 723421 TABLET(S) 1/2 TABLET(S) PO BID TAKE 1/2 TABLET BY MOUTH TWICE DAILY 08/10/2016 01/17/2017 Inactive pantoprazole 40 mg tablet,delayed release RxNorm: 262896 TAKE 1 TABLET BY MOUTH EVERY DAY 08/10/2016 11/05/2016 Inactive Savella 100 mg tablet RxNorm: 329042 TABLET(S) PO TAKE 1 TABLET BY MOUTH DAILY 08/10/2016 11/05/2016 Inactive Ventolin HFA 90 mcg/actuation aerosol inhaler RxNorm: 091537 1 OR 2 PUFF(S) INH Q6 PRN NEEDED 08/07/2016 02/02/2017 Inactive Diflucan 150 mg tablet RxNorm: 702757 1 Tablet(s) PO daily 08/201608/13/2016 Inactive nystatin 100,000 unit/mL oral suspension RxNorm: 593934 5 Milliliter(s) PO QID 08/07/2016 08/16/2016 Inactive hydrocodone 10 mg-acetaminophen 325 mg tablet RxNorm: 897271 1-2 Tablet(s) PO Q6 as needed for pain 08/04/2016 08/23/2016 Inactive (Response to an electronic controlled substance refill request - RxReferenceNumber: [id number]|1|0|1) Valium 10 mg tablet RxNorm: 785690 1 Tablet(s) QID as needed 07/20/2016 09/17/2016 Inactive (Response to an electronic controlled substance refill request - RxReferenceNumber: [id number]|1|0|1) tramadol 50 mg tablet RxNorm: 936141 1-2 Tablet(s) PO TID PRN as needed 07/15/2016 11/05/2016 Inactive ok to give 1 month pbxibz=624 tablets cyanocobalamin (vit B-12) 1,000 mcg/mL injection solution RxNorm: 899711 Milliliter(s) Inj 07/03/2016 07/03/2016 Inactive Seroquel 100 mg tablet RxNorm: 385237 1 TABLET(S) PO BID 201603/15/2017 Inactive TAKE 1 TABLET BY MOUTH TWICE DAILY hydrocodone 10 mg-acetaminophen 325 mg tablet RxNorm: 439713 1-2 Tablet(s) PO Q6 as needed for pain 06/26/2016 08/03/2016 Inactive (Response to an electronic controlled substance refill request - RxReferenceNumber: [id number]|1|0|1) Valium 10 mg tablet RxNorm: 905421 1 Tablet(s) QID as needed 05/11/2016 07/09/2016 Inactive (Response to an electronic controlled substance refill request - RxReferenceNumber: [id number]|1|0|1) tramadol 50 mg tablet RxNorm: 030573 1-2 Tablet(s) PO TID PRN as needed 05/11/2016 07/08/2016 Inactive ok to give 1 month [id number]=814 tablets cyclobenzaprine 10 mg tablet RxNorm: 739955 TAKE 1 TABLET BY MOUTH THREE TIMES DAILY NEEDED FOR MUSCLE SPASMS 05/11/2016 05/10/2017 Inactive hydrocodone 10 mg-acetaminophen 325 mg tablet RxNorm: 097079 1-2 Tablet(s) PO Q6 as needed for pain 05/06/2016 06/25/2016 Inactive (Response to an electronic controlled substance refill request - RxReferenceNumber: [id number]|1|0|1) cyanocobalamin (vit B-12) 1,000 mcg/mL injection solution RxNorm: 541398 1 Milliliter(s) Inj 04/20/2016 04/20/2016 Inactive hydrocodone 10 mg-acetaminophen 325 mg tablet RxNorm: 355660 1-2 Tablet(s) PO Q6 as needed for pain 04/03/2016 05/05/2016 Inactive (Response to an electronic controlled substance refill request - RxReferenceNumber: [id number]|1|0|1) pantoprazole 40 mg tablet,delayed release RxNorm: 306119 TAKE 1 TABLET BY MOUTH EVERY DAY 04/02/2016 08/09/2016 Inactive Claritin-D 12 Hour 5 mg-120 mg tablet,extended release RxNorm: 3156395 Tablet(s) TAKE 1 TABLET BY MOUTH TWICE DAILY NEEDED 04/02/2016 11/05/2016 Inactive hydrocodone 10 mg-acetaminophen 325 mg tablet RxNorm: 793698 1-2 Tablet(s) PO Q6 as needed for pain 03/12/2016 04/02/2016 Inactive (Response to an electronic controlled substance refill request - RxReferenceNumber: [id number]|1|0|1) Effexor XR 150 mg capsule,extended release RxNorm: 635206 1 CAPSULE(S) PO BID 03/05/2016 01/07/2017 Inactive TAKE 1 CAPSULE BY MOUTH TWICE DAILY Ventolin HFA 90 mcg/actuation aerosol inhaler RxNorm: 785541 1 OR 2 PUFF(S) INH Q6 PRN NEEDED 02/19/2016 08/06/2016 Inactive cyanocobalamin (vit B-12) 1,000 mcg/mL injection solution RxNorm: 096004 Milliliter(s) Inj 02/13/2016 02/13/2016 Inactive hydrocodone 10 mg-acetaminophen 325 mg tablet RxNorm: 238944 1-2 Tablet(s) PO Q6 as needed for pain 02/05/2016 03/11/2016 Inactive (Response to an electronic controlled substance refill request - RxReferenceNumber: [id number]|1|0|1) Valium 10 mg tablet RxNorm: 859201 1 Tablet(s) QID as needed 02/05/2016 05/04/2016 Inactive (Response to an electronic controlled substance refill request - RxReferenceNumber: [id number]|1|0|1) tramadol 50 mg tablet RxNorm: 030980 1-2 Tablet(s) PO TID PRN as needed 02/05/2016 11/05/2016 Inactive ok to give 1 month wrzbsv=295 tablets hydrocodone 10 mg-acetaminophen 325 mg tablet RxNorm: 559009 1-2 Tablet(s) PO Q6 as needed for pain 01/08/2016 02/04/2016 Inactive (Response to an electronic controlled substance refill request - RxReferenceNumber: [id number]|1|0|1) metoprolol tartrate 25 mg tablet RxNorm: 912610 Tablet(s) 1/2 TABLET(S) PO BID TAKE 1/2 TABLET BY MOUTH TWICE DAILY 01/08/2016 08/09/2016 Inactive Symbicort 160 mcg-4.5 mcg/actuation HFA aerosol inhaler RxNorm: 8131129 2 INH BID 01/03/2016 11/25/2016 Inactive Symbicort 160 mcg-4.5 mcg/actuation HFA aerosol inhaler RxNorm: 9933400 1 INH daily 01/03/2016 01/02/2016 Inactive Lipitor 20 mg tablet RxNorm: 441400 1 TABLET(S) PO DAILY 201506/26/2016 Inactive TAKE ONE TABLET BY MOUTH EVERY NIGHT AT BEDTIME trazodone 100 mg tablet RxNorm: 868275 TAKE 2 TABLETS BY MOUTH EVERY NIGHT AT BEDTIME 12/30/2015 09/23/2016 Inactive Savella 100 mg tablet RxNorm: 274658 TABLET(S) PO TAKE 1 TABLET BY MOUTH DAILY 12/30/2015 08/09/2016 Inactive hydrocodone 10 mg-acetaminophen 325 mg tablet RxNorm: 807245 1-2 Tablet(s) PO Q6 as needed for pain 12/12/2015 01/07/2016 Inactive (Response to an electronic controlled substance refill request - RxReferenceNumber: [id number]|1|0|1) cyanocobalamin (vit B-12) 1,000 mcg/mL injection solution RxNorm: 747244 1 Milliliter(s) Inj 12/02/2015 12/02/2015 Inactive hydrocodone 10 mg-acetaminophen 325 mg tablet RxNorm: 466000 1-2 Tablet(s) PO Q6 as needed for pain 12/02/2015 12/11/2015 Inactive (Response to an electronic controlled substance refill request - RxReferenceNumber: [id number]|1|0|1) Claritin-D 12 Hour 5 mg-120 mg tablet,extended release RxNorm: 5729415 Tablet(s) TAKE 1 TABLET BY MOUTH TWICE DAILY 11/11/2015 11/10/2015 Inactive Claritin-D 12 Hour 5 mg-120 mg tablet,extended release RxNorm: 6832669 Tablet(s) TAKE 1 TABLET BY MOUTH TWICE DAILY NEEDED 11/11/2015 01/06/2016 Inactive tramadol 50 mg tablet RxNorm: 573591 1-2 Tablet(s) PO TID PRN as needed 11/05/2015 11/05/2016 Inactive ok to give 1 month euuoay=786 tablets Valium 10 mg tablet RxNorm: 775971 1 Tablet(s) QID as needed 11/05/2015 02/02/2016 Inactive (Response to an electronic controlled substance refill request - RxReferenceNumber: [id number]|1|0|1) cyanocobalamin (vit B-12) 1,000 mcg/mL injection solution RxNorm: 384288 1 Milliliter(s) Inj 10/29/2015 10/29/2015 Inactive hydrocodone 10 mg-acetaminophen 325 mg tablet RxNorm: 113957 1-2 Tablet(s) PO Q6 as needed for pain 10/28/2015 12/01/2015 Inactive (Response to an electronic controlled substance refill request - RxReferenceNumber: [id number]|1|0|1) pantoprazole 40 mg tablet,delayed release RxNorm: 015833 TAKE 1 TABLET BY MOUTH EVERY DAY 10/08/2015 04/01/2016 Inactive Seroquel 100 mg tablet RxNorm: 591906 1 TABLET(S) PO BID 201506/29/2016 Inactive TAKE 1 TABLET BY MOUTH TWICE DAILY trazodone 100 mg tablet RxNorm: 225101 TAKE 2 TABLETS BY MOUTH EVERY NIGHT AT BEDTIME 10/08/2015 10/01/2016 Inactive Lipitor 20 mg tablet RxNorm: 888585 1 TABLET(S) PO DAILY 201504/04/2016 Inactive TAKE ONE TABLET BY MOUTH EVERY NIGHT AT BEDTIME hydrocodone 10 mg-acetaminophen 325 mg tablet RxNorm: 173400 1-2 Tablet(s) PO Q6 as needed for pain 09/19/2015 10/18/2015 Inactive (Response to an electronic controlled substance refill request - RxReferenceNumber: [id number]|1|0|1) Valium 10 mg tablet RxNorm: 600320 1 Tablet(s) QID as needed 09/05/2015 11/03/2015 Inactive (Response to an electronic controlled substance refill request - RxReferenceNumber: [id number]|1|0|1) Savella 100 mg tablet RxNorm: 542069 Tablet(s) PO TAKE 1 TABLET BY MOUTH DAILY 07/19/2015 11/05/2016 Inactive Zithromax Z-Lauro 250 mg tablet RxNorm: 907153 1 Tablet(s) PO UD 07/12/2015 11/04/2015 Inactive z lauro hydrocodone 10 mg-acetaminophen 325 mg tablet RxNorm: 199546 1-2 Tablet(s) PO Q6 as needed for pain 07/10/2015 08/08/2015 Inactive (Response to an electronic controlled substance refill request - RxReferenceNumber: [id number]|1|0|1) tramadol 50 mg tablet RxNorm: 788528 1-2 Tablet(s) PO TID PRN as needed 07/04/2015 11/05/2016 Inactive ok to give 1 month ynpmie=016 tablets hydrocodone 10 mg-acetaminophen 325 mg tablet RxNorm: 029499 1-2 Tablet(s) PO Q6 as needed for pain 06/10/2015 07/09/2015 Inactive (Response to an electronic controlled substance refill request - RxReferenceNumber: [id number]|1|0|1) cyanocobalamin (vit B-12) 1,000 mcg/mL injection solution RxNorm: 556324 Milliliter(s) Inj 06/10/2015 06/10/2015 Inactive pantoprazole 40 mg tablet,delayed release RxNorm: 551661 TABLET(S) PO TAKE 1 TABLET BY MOUTH EVERY DAY 06/10/201511/05 Inactive pantoprazole 40 mg tablet,delayed release RxNorm: 885453 Tablet(s) PO TAKE 1 TABLET BY MOUTH EVERY DAY 06/06/201511/05 Inactive tramadol 50 mg tablet RxNorm: 139469 1-2 Tablet(s) PO TID PRN as needed 05/29/2015 06/27/2015 Inactive ok to give 1 month uoxkcv=846 tablets tramadol 50 mg tablet RxNorm: 379909 1-2 Tablet(s) PO Q6 as needed 05/29/2015 06/09/2015 Inactive Valium 10 mg tablet RxNorm: 800982 1 Tablet(s) QID as needed 05/08/2015 07/06/2015 Inactive (Response to an electronic controlled substance refill request - RxReferenceNumber: [id number]|1|0|1) cyclobenzaprine 10 mg tablet RxNorm: 498844 TAKE 1 TABLET BY MOUTH THREE TIMES DAILY NEEDED FOR MUSCLE SPASMS 05/08/2015 05/10/2016 Inactive Effexor XR 150 mg capsule,extended release RxNorm: 170924 1 Capsule(s) PO BID 1 CAPSULE(S) PO BID 05/08/2015 11/05/2016 Inactive TAKE 1 CAPSULE BY MOUTH TWICE DAILY hydrocodone 10 mg-acetaminophen 325 mg tablet RxNorm: 626866 1-2 Tablet(s) PO Q6 as needed for pain 05/08/2015 06/06/2015 Inactive (Response to an electronic controlled substance refill request - RxReferenceNumber: [id number]|1|0|1) metoprolol tartrate 25 mg tablet RxNorm: 223894 1/2 TABLET(S) PO BID TAKE 1/2 TABLET BY MOUTH TWICE DAILY 05/06/201507/2015 Inactive Claritin-D 12 Hour 5 mg-120 mg tablet,extended release RxNorm: 9517053 TAKE 1 TABLET BY MOUTH TWICE DAILY 04/16/201506/2016 Inactive hydrocodone 10 mg-acetaminophen 325 mg tablet RxNorm: 758845 1-2 Tablet(s) PO Q6 as needed for pain 04/15/2015 05/07/2015 Inactive (Response to an electronic controlled substance refill request - RxReferenceNumber: [id number]|1|0|1) pantoprazole 40 mg tablet,delayed release RxNorm: 501262 TABLET(S) PO TAKE 1 TABLET BY MOUTH EVERY DAY 04/08/201506/06 Inactive hydrocodone 10 mg-acetaminophen 325 mg tablet RxNorm: 629045 1 Tablet(s) PO Q4 PRN TAKE 1-2 TABLETS BY MOUTH EVERY 6 HOURS NEEDED FOR PAIN 03/14/2015 04/12/2015 Inactive (Response to an electronic controlled substance refill request - RxReferenceNumber: [id number]|1|0|1) diazepam 10 mg tablet RxNorm: 375306 1 Tablet(s) TID TAKE 1 TABLET BY MOUTH THREE TIMES DAILY NEEDED 02/08/20152016 Inactive (Response to an electronic controlled substance refill request - RxReferenceNumber: [id number]|1|0|1) Effexor XR 150 mg capsule,extended release RxNorm: 123574 1 CAPSULE(S) PO BID 02/07/2015 05/07/2015 Inactive TAKE 1 CAPSULE BY MOUTH TWICE DAILY cyclobenzaprine 10 mg tablet RxNorm: 740547 TAKE 1 TABLET BY MOUTH THREE TIMES DAILY NEEDED FOR MUSCLE SPASMS 02/07/2015 05/07/2015 Inactive pantoprazole 40 mg tablet,delayed release RxNorm: 467185 TABLET(S) PO TAKE 1 TABLET BY MOUTH EVERY DAY 02/07/201504/07 Inactive hydrocodone 10 mg-acetaminophen 325 mg tablet RxNorm: 755095 1 Tablet(s) PO Q4 PRN TAKE 1-2 TABLETS BY MOUTH EVERY 6 HOURS NEEDED FOR PAIN 01/25/2015 02/23/2015 Inactive (Response to an electronic controlled substance refill request - RxReferenceNumber: [id number]|1|0|1) Bactroban Nasal 2 % ointment RxNorm: 917246 1 Application NASAL BID 01/10/2015 01/10/2015 Inactive mupirocin 2 % topical ointment RxNorm: 115273 1 Application TOP TID 1 APPLICATION TOP PRN 01/10/2015 01/19/2015 Inactive disregard order for nasal ointment , use on left knee trazodone 100 mg tablet RxNorm: 419223 TAKE 2 TABLETS BY MOUTH EVERY NIGHT AT BEDTIME 01/08/2015 10/07/2015 Inactive Seroquel 100 mg tablet RxNorm: 981004 1 TABLET(S) PO BID 201410/04/2015 Inactive TAKE 1 TABLET BY MOUTH TWICE DAILY cyclobenzaprine 10 mg tablet RxNorm: 313422 TAKE 1 TABLET BY MOUTH THREE TIMES DAILY NEEDED FOR MUSCLE SPASMS 01/08/2015 02/06/2015 Inactive hydrocodone 10 mg-acetaminophen 325 mg tablet RxNorm: 615295 1 Tablet(s) PO Q4 PRN TAKE 1-2 TABLETS BY MOUTH EVERY 6 HOURS NEEDED FOR PAIN 12/21/2014 01/19/2015 Inactive (Response to an electronic controlled substance refill request - RxReferenceNumber: [id number]|1|0|1) pantoprazole 40 mg tablet,delayed release RxNorm: 242264 TABLET(S) PO TAKE 1 TABLET BY MOUTH EVERY DAY 12/13/201402/06 Inactive Lipitor 20 mg tablet RxNorm: 649026 1 Tablet(s) PO daily 201409/08/2015 Inactive TAKE ONE TABLET BY MOUTH EVERY NIGHT AT BEDTIME Valium 10 mg tablet RxNorm: 044322 1 Tablet(s) QID as needed 12/12/2014 02/09/2015 Inactive (Response to an electronic controlled substance refill request - RxReferenceNumber: [id number]|1|0|1) hydrocodone 10 mg-acetaminophen 325 mg tablet RxNorm: 721192 Tablet(s) TAKE 1-2 TABLETS BY MOUTH EVERY 6 HOURS NEEDED FOR PAIN 12/12/2014 12/20/2014 Inactive ( Response to an electronic controlled substance refill request - RxReferenceNumber: [id number]|1|0|1) Lipitor 20 mg tablet RxNorm: 576523 1 Tablet(s) PO daily 201412/12/2014 Inactive TAKE ONE TABLET BY MOUTH EVERY NIGHT AT BEDTIME pantoprazole 40 mg tablet,delayed release RxNorm: 401604 TABLET(S) PO TAKE 1 TABLET BY MOUTH EVERY DAY 12/06/201411/05 Inactive Savella 100 mg tablet RxNorm: 201864 Tablet(s) PO TAKE 1 TABLET BY MOUTH DAILY 12/06/2014 07/18/2015 Inactive Lipitor 20 mg tablet RxNorm: 928117 1 Tablet(s) PO daily 201412/10/2014 Inactive TAKE ONE TABLET BY MOUTH EVERY NIGHT AT BEDTIME Valium 10 mg tablet RxNorm: 349450 TAKE 1 TABLET BY MOUTH FOUR TIMES DAILY NEEDED FOR ANXIETY 12/06/2014 12/11/2014 Inactive Valium 10 mg tablet RxNorm: 169143 1 Tablet(s) QID as needed 11/13/2014 12/11/2014 Inactive (Response to an electronic controlled substance refill request - RxReferenceNumber: [id number]|1|0|1) hydrocodone 10 mg-acetaminophen 325 mg tablet RxNorm: 376677 Tablet(s) TAKE 1-2 TABLETS BY MOUTH EVERY 6 HOURS NEEDED FOR PAIN 11/13/2014 12/11/2014 Inactive ( Response to an electronic controlled substance refill request - RxReferenceNumber: [id number]|1|0|1) hydrocodone 10 mg-acetaminophen 325 mg tablet RxNorm: 481696 Tablet(s) TAKE 1-2 TABLETS BY MOUTH EVERY 6 HOURS NEEDED FOR PAIN 11/08/2014 11/12/2014 Inactive ( Response to an electronic controlled substance refill request - RxReferenceNumber: [id number]|1|0|1) Valium 10 mg tablet RxNorm: 973807 1 Tablet(s) QID as needed 11/08/2014 11/12/2014 Inactive (Response to an electronic controlled substance refill request - RxReferenceNumber: [id number]|1|0|1) metoprolol tartrate 25 mg tablet RxNorm: 704954 1/2 TABLET(S) PO BID TAKE 1/2 TABLET BY MOUTH TWICE DAILY 11/08/2014 Inactive Valium 10 mg tablet RxNorm: 568813 TAKE 1 TABLET BY MOUTH FOUR TIMES DAILY NEEDED FOR ANXIETY 11/06/2014 12/09/2014 Inactive Vitamin D2 50,000 unit capsule RxNorm: 020383 1 Capsule(s) PO QW 10/24/2014 10/23/2014 Inactive Vitamin D2 50,000 unit capsule RxNorm: 831751 1 Capsule(s) PO QW x 8 weeks 10/24/2014 12/22/2014 Inactive Entyvio 300 mg intravenous solution RxNorm: 9778753 IV 2014 No Stop Date Active hydrocodone 10 mg-acetaminophen 325 mg tablet RxNorm: 202945 Tablet(s) TAKE 1-2 TABLETS BY MOUTH EVERY 6 HOURS NEEDED FOR PAIN 10/05/2014 11/03/2014 Inactive ( Response to an electronic controlled substance refill request - RxReferenceNumber: [id number]|1|0|1) Valium 10 mg tablet RxNorm: 802073 TAKE 1 TABLET BY MOUTH EVERY 8 HOURS NEEDED 10/05/2014 11/03/2014 Inactive (Response to an electronic controlled substance refill request - RxReferenceNumber: [id number]|1|0|1) Valium 10 mg tablet RxNorm: 517647 1 Tablet(s) PO QID as needed TAKE 1 TABLET BY MOUTH 10/05/2014 11/05/2016 Inactive (Response to an electronic controlled substance refill request - RxReferenceNumber: [id number]|1|0|1) Valium 10 mg tablet RxNorm: 884118 TAKE 1 TABLET BY MOUTH THREE TIMES DAILY NEEDED 09/04/2014 10/03/2014 Inactive (Response to an electronic controlled substance refill request - RxReferenceNumber: [id number]|1|0|1) Valium 10 mg tablet RxNorm: 889632 1 Tablet(s) PO Q8 PRN as needed 09/04/2014 11/09/2014 Inactive hydrocodone 10 mg-acetaminophen 325 mg tablet RxNorm: 652498 Tablet(s) TAKE 1-2 TABLETS BY MOUTH EVERY 6 HOURS NEEDED FOR PAIN 08/27/2014 09/25/2014 Inactive ( Response to an electronic controlled substance refill request - RxReferenceNumber: [id number]|1|0|1) Claritin-D 12 Hour 5 mg-120 mg tablet,extended release RxNorm: 6473813 1 Tablet(s ) PO BID 08/27/2014 04/16/2015 Inactive Ventolin HFA 90 mcg/actuation aerosol inhaler RxNorm: 969631 1 or 2 Puff(s) INH Q6 PRN as needed 08/09/2014 03/06/2015 Inactive pantoprazole 40 mg tablet,delayed release RxNorm: 266255 Tablet(s) PO TAKE 1 TABLET BY MOUTH EVERY DAY 08/09/201408/08 Inactive pantoprazole 40 mg tablet,delayed release RxNorm: 244562 TAKE 1 TABLET BY MOUTH EVERY DAY 08/09/2014 11/05/2016 Inactive diazepam 10 mg tablet RxNorm: 230026 TAKE 1 TABLET BY MOUTH THREE TIMES DAILY NEEDED 07/02/2014 07/31/2014 Inactive (Response to an electronic controlled substance refill request - RxReferenceNumber: [id number]|1|0|1) Valium 10 mg tablet RxNorm: 479429 1 Tablet(s) PO Q8 PRN as needed 07/02/2014 07/01/2014 Inactive hydrocodone 10 mg-acetaminophen 325 mg tablet RxNorm: 910079 Tablet(s) TAKE 1-2 TABLETS BY MOUTH EVERY 6 HOURS NEEDED FOR PAIN 06/14/2014 07/13/2014 Inactive ( Response to an electronic controlled substance refill request - RxReferenceNumber: [id number]|1|0|1) diazepam 10 mg tablet RxNorm: 468118 TAKE 1 TABLET BY MOUTH THREE TIMES DAILY NEEDED 05/29/2014 06/27/2014 Inactive (Response to an electronic controlled substance refill request - RxReferenceNumber: [id number]|1|0|1) diazepam 10 mg tablet RxNorm: 526125 Tablet(s) PO TAKE 1 TABLET BY MOUTH THREE TIMES DAILY NEEDED 05/29/20142013 Inactive (Appended: Controlled substance eRx refill - RxReferenceNumber: [id number]|1|0|1) hydrocodone 10 mg-acetaminophen 325 mg tablet RxNorm: 047192 Tablet(s) TAKE 1-2 TABLETS BY MOUTH EVERY 6 HOURS NEEDED FOR PAIN 05/17/2014 06/13/2014 Inactive ( Response to an electronic controlled substance refill request - RxReferenceNumber: [id number]|1|0|1) diazepam 10 mg tablet RxNorm: 102996 Tablet(s) PO TAKE 1 TABLET BY MOUTH THREE TIMES DAILY NEEDED 04/27/20142013 Inactive (Appended: Controlled substance eRx refill - RxReferenceNumber: [id number]|1|0|1) Anucort-HC 25 mg suppository RxNorm: 3410546 1 SUPPOSITORY RTL QDAY PRN NEEDED 04/03/2014 06/01/2014 Inactive metoprolol tartrate 25 mg tablet RxNorm: 263845 1/2 TABLET(S) PO BID TAKE 1/2 TABLET BY MOUTH TWICE DAILY 04/03/201408/2014 Inactive Anucort-HC 25 mg suppository RxNorm: 4997830 1 SUPPOSITORY RTL QDAY PRN NEEDED 04/03/2014 06/01/2014 Inactive Seroquel 100 mg tablet RxNorm: 495348 1 TABLET(S) PO BID 201312/28/2014 Inactive TAKE 1 TABLET BY MOUTH TWICE DAILY Anucort-HC 25 mg suppository RxNorm: 5338808 1 SUPPOSITORY RTL QDAY PRN NEEDED 04/03/2014 06/01/2014 Inactive hydrocodone 10 mg-acetaminophen 325 mg tablet RxNorm: 126062 Tablet(s) TAKE 1-2 TABLETS BY MOUTH EVERY 6 HOURS NEEDED FOR PAIN 03/22/2014 04/20/2014 Inactive ( Response to an electronic controlled substance refill request - RxReferenceNumber: [id number]|1|0|1) Claritin-D 12 Hour 5 mg-120 mg tablet,extended release RxNorm: 3951064 1 Tablet(s ) PO BID 03/22/2014 2014 Inactive diazepam 10 mg tablet RxNorm: 558661 TAKE 1 TABLET BY MOUTH THREE TIMES DAILY NEEDED 03/19/2014 04/16/2014 Inactive (Response to an electronic controlled substance refill request - RxReferenceNumber: [id number]|1|0|1) Lipitor 20 mg tablet RxNorm: 569530 1 TABLET(S) PO DAILY 201312/05/2014 Inactive TAKE ONE TABLET BY MOUTH EVERY NIGHT AT BEDTIME Effexor XR 150 mg capsule,extended release RxNorm: 909727 1 CAPSULE(S) PO BID 03/01/2014 01/24/2015 Inactive TAKE 1 CAPSULE BY MOUTH TWICE DAILY Claritin-D 12 Hour 5 mg-120 mg tablet,extended release RxNorm: 1522169 1 Tablet(s ) PO BID 02/19/2014 03/21/2014 Inactive cyanocobalamin (vit B-12) 1,000 mcg/mL injection solution RxNorm: 561090 Milliliter(s) Inj 02/15/2014 02/15/2014 Inactive hydrocodone 10 mg-acetaminophen 325 mg tablet RxNorm: 905543 1 Tablet(s) PO Q6 PRN TAKE ONE TO TWO TABLETS BY MOUTH EVERY 6 HOURS NEEDED FOR PAIN 01/30/2014 01/30/2014 Inactive (Response to an electronic controlled substance refill request - RxReferenceNumber: [id number]|1|0|1) hydrocodone 10 mg-acetaminophen 325 mg tablet RxNorm: 889232 TAKE 1-2 TABLETS BY MOUTH EVERY 6 HOURS NEEDED FOR PAIN 01/30/2014 02/19/2014 Inactive (Response to an electronic controlled substance refill request - RxReferenceNumber: [id number]| [id number]|1|0|1) cyanocobalamin (vit B-12) 1,000 mcg/mL injection kit RxNorm: 698591 1 Milliliter(s ) Inj 01/15/2014 01/15/2014 Inactive Kenalog 40 mg/mL suspension for injection RxNorm: 0125300 1 Milliliter(s) Inj 01/15/2014 01/15/2014 Inactive Anucort-HC 25 mg suppository RxNorm: 6413691 1 Suppository RTL QDAY PRN as needed 01/15/2014 02/13/2014 Inactive hydrocodone 10 mg-acetaminophen 325 mg tablet RxNorm: 745279 TAKE ONE TO TWO TABLETS BY MOUTH EVERY 6 HOURS NEEDED FOR PAIN 12/29/2013 01/18/2014 Inactive ( Response to an electronic controlled substance refill request - RxReferenceNumber: [id number]|1|0|1) trazodone 100 mg tablet RxNorm: 629760 TAKE 2 TABLETS BY MOUTH EVERY NIGHT AT BEDTIME 12/20/2013 12/14/2014 Inactive mupirocin 2 % topical ointment RxNorm: 278289 1 APPLICATION TOP PRN 12/14/2013 01/09/2015 Inactive cyanocobalamin (vit B-12) 1,000 mcg/mL injection solution RxNorm: 430841 1 Milliliter(s) Inj 12/04/2013 12/04/2013 Inactive Savella 100 mg tablet RxNorm: 664343 1 Tablet(s) PO daily TAKE 1 TABLET BY MOUTH DAILY 11/28/2013 11/05/2016 Inactive Savella 100 mg tablet RxNorm: 363043 Tablet(s) PO TAKE 1 TABLET BY MOUTH DAILY 10/27/2013 11/27/2013 Inactive mupirocin 2 % topical ointment RxNorm: 592742 1 Application TOP PRN 10/17/2013 No Stop Date Active trazodone 100 mg tablet RxNorm: 852798 Tablet(s) PO TAKE 2 TABLETS BY MOUTH EVERY NIGHT AT BEDTIME 09/26/2013 11/05/2016 Inactive cyclobenzaprine 10 mg tablet RxNorm: 754032 Tablet(s) PO TAKE ONE TABLET BY MOUTH THREE TIMES DAILY 09/26/2013 01/07/2015 Inactive diazepam 10 mg tablet RxNorm: 499952 Tablet(s) PO TAKE 1 TABLET BY MOUTH THREE TIMES DAILY NEEDED 08/15/20132013 Inactive (Appended: Controlled substance eRx refill - RxReferenceNumber: [id number]|1|0|1) diazepam 10 mg tablet RxNorm: 987496 1 Tablet(s) PO TID PRN TAKE 1 TABLET BY MOUTH THREE TIMES DAILY NEEDED 08/15/2013 Inactive (Appended: Controlled substance eRx refill - RxReferenceNumber: [id number]|1|0|1) Vitamin B-12 1,000 mcg/mL injection solution RxNorm: 815973 Milliliter(s) Inj 07/24/2013 07/24/2013 Inactive pantoprazole 40 mg tablet,delayed release RxNorm: 791724 Tablet(s) PO TAKE 1 TABLET BY MOUTH EVERY DAY 07/20/201308/08 Inactive hydrocodone 10 mg-acetaminophen 325 mg tablet RxNorm: 740403 1 or 2 Tablet(s) PO Q6 PRN limit 6 per day 06/26/20132013 Inactive (Appended: Controlled substance eRx refill - RxReferenceNumber: [id number]|1|0|1) trazodone 100 mg tablet RxNorm: 038101 Tablet(s) PO TAKE 2 TABLETS BY MOUTH EVERY NIGHT AT BEDTIME 06/26/2013 11/05/2016 Inactive pantoprazole 40 mg tablet,delayed release RxNorm: 307877 Tablet(s) PO TAKE 1 TABLET BY MOUTH EVERY DAY 06/20/201306/05 Inactive prednisone 10 mg tablets in a dose pack RxNorm: 433500 Tablet(s) PO 6-5-4-3-2-1 06/13/2013 06/12/2013 Inactive prednisone 10 mg tablets in a dose pack RxNorm: 537053 Tablet(s) PO UD 6-5-4-3-2- 1 06/13/2013 06/18/2013 Inactive Silvadene 1 % topical cream RxNorm: 713066 1 TOP daily apply thin layer to left knee daily 06/12/2013 06/18/2013 Inactive metoprolol tartrate 25 mg tablet RxNorm: 951308 1/2 Tablet(s) PO BID TAKE 1/2 TABLET BY MOUTH TWICE DAILY 05/19/2013 Inactive Lipitor 20 mg tablet RxNorm: 214523 1 Tablet(s) PO daily 201203/11/2014 Inactive TAKE ONE TABLET BY MOUTH EVERY NIGHT AT BEDTIME Vitamin B-12 1,000 mcg/mL injection solution RxNorm: 118850 1 Milliliter(s) Inj 05/10/2013 05/10/2013 Inactive hydrocodone 10 mg-acetaminophen 325 mg tablet RxNorm: 331914 1 or 2 Tablet(s) PO Q6 PRN limit 6 per day 03/16/2013 No Stop Date Active (Appended: Controlled substance eRx refill - RxReferenceNumber: [id number]|1|0|1) Seroquel 100 mg tablet RxNorm: 877933 1 Tablet(s) PO BID 201203/10/2014 Inactive TAKE 1 TABLET BY MOUTH TWICE DAILY Effexor XR 150 mg capsule,extended release RxNorm: 327581 1 Capsule(s) PO BID 03/16/2013 02/28/2014 Inactive TAKE 1 CAPSULE BY MOUTH TWICE DAILY fluconazole 150 mg tablet RxNorm: 568795 1 Tablet(s) PO daily 03/06/2013 03/12/2013 Inactive Kenalog 40 mg/mL Susp for Injection RxNorm: 9215436 Milliliter(s) Inj 03/06/2013 03/06/2013 Inactive Ventolin HFA 90 mcg/actuation Aerosol Inhaler RxNorm: 3538822 1 or 2 Puff(s) INH Q6 PRN 02/20/2013 03/16/2014 Inactive cyanocobalamin (vitamin B-12) 1,000 mcg/mL Injection RxNorm: 125908 Milliliter(s) Inj 02/20/2013 02/20/2013 Inactive Valium 10 mg tablet RxNorm: 637240 1 Tablet(s) PO Q8 PRN 01/3102/24/2014 Inactive Kenalog 40 mg/mL Susp for Injection RxNorm: 7871028 Milliliter(s) Inj 12/26/2012 12/26/2012 Inactive cyanocobalamin (vitamin B-12) 1,000 mcg/mL Injection RxNorm: 106886 Milliliter(s) Inj 12/21/2012 12/21/2012 Inactive hydrocodone 10 mg-acetaminophen 325 mg tablet RxNorm: 8221800 1 or 2 Tablet(s) PO Q6 PRN limit 6 per day 11/25/20122012 Inactive (Appended: Controlled substance eRx refill - RxReferenceNumber: [id number]|1|0|1) diazepam 10 mg tablet RxNorm: 353943 1 Tablet(s) PO TID PRN 08/15/2013 Inactive TAKE 1 TABLET BY MOUTH THREE TIMES DAILY NEEDED (Appended: Controlled substance eRx refill - RxReferenceNumber: [id number]|1|0|1) diazepam 10 mg tablet RxNorm: 122634 Tablet(s) PO TAKE 1 TABLET BY MOUTH THREE TIMES DAILY NEEDED 11/21/20122013 Inactive (Appended: Controlled substance eRx refill - RxReferenceNumber: [id number]|1|0|1) Vitamin B-12 1,000 mcg/mL Injection RxNorm: 837811 1 Milliliter(s) Inj 11/16/2012 11/16/2012 Inactive hydrocodone 10 mg-acetaminophen 325 mg tablet RxNorm: 3970068 1 or 2 Tablet(s) PO Q6 PRN limit 6 per day 10/24/20122012 Inactive (Appended: Controlled substance eRx refill - RxReferenceNumber: [id number]|1|0|1) hydrocodone 10 mg-acetaminophen 325 mg tablet RxNorm: 6131160 Tablet(s) PO limit 5x days 10/24/2012 10/23/2012 Inactive (Appended: Controlled substance eRx refill - RxReferenceNumber: [id number]|1|0|1) Savella 100 mg tablet RxNorm: 967276 Tablet(s) PO TAKE 1 TABLET BY MOUTH DAILY 10/14/2012 12/05/2014 Inactive Tubersol 5 tub. unit/0.1 mL Intradermal RxNorm: 228240 Milliliter(s) IDrm 09/26/2012 09/26/2012 Inactive hydrocodone 10 mg-acetaminophen 325 mg tablet RxNorm: 7878539 1 Tablet(s) PO Q4 PRN q 4 hr prn limit 5 per day 09/19/2012 No Stop Date Active (Appended: Controlled substance eRx refill - RxReferenceNumber: [id number]|1|0|1) hydrocodone 10 mg-acetaminophen 325 mg tablet RxNorm: 5244453 Tablet(s) PO TAKE 1 TABLET BY MOUTH FOUR TIMES DAILY 09/16/2012 10/23/2012 Inactive (Appended: Controlled substance eRx refill - RxReferenceNumber: [id number]|1|0|1) cyclobenzaprine 10 mg tablet RxNorm: 277813 Tablet(s) PO TAKE ONE TABLET BY MOUTH THREE TIMES DAILY 09/16/2012 09/25/2013 Inactive hydrocodone 10 mg-acetaminophen 325 mg tablet RxNorm: 1455570 1 Tablet(s) PO Q4 PRN q 4 hr prn limit 5 per day 09/14/2012 09/19/2012 Inactive (Appended: Controlled substance eRx refill - RxReferenceNumber: [id number]|1|0|1) cyanocobalamin (vitamin B-12) 1,000 mcg/mL Injection RxNorm: 094155 1 Milliliter(s ) Inj 09/12/2012 09/12/2012 Inactive cyclobenzaprine 10 mg tablet RxNorm: 469941 Tablet(s) PO TAKE ONE TABLET BY MOUTH THREE TIMES DAILY 09/02/2012 09/15/2012 Inactive hydrocodone 10 mg-acetaminophen 325 mg tablet RxNorm: 4207799 1 Tablet(s) PO QID TAKE 1 TABLET BY MOUTH FOUR TIMES DAILY 08/23/2012 09/13/2012 Inactive (Appended: Controlled substance eRx refill - RxReferenceNumber: [id number]|1|0|1) Kenalog 40 mg/mL Susp for Injection RxNorm: 2338322 1 Milliliter(s) Inj 08/11/2012 08/11/2012 Inactive Vitamin B-12 1,000 mcg/mL Injection RxNorm: 697107 1 Milliliter(s) Inj 08/11/2012 08/11/2012 Inactive Zithromax 250 mg tablet RxNorm: 350218 Tablet(s) PO 07/21/2012 09/14/2012 Inactive please give z lauro cefdinir 300 mg capsule RxNorm: 518814 1 Capsule(s) PO BID 07/20/2012 Inactive cefdinir 300 mg capsule RxNorm: 940099 1 Capsule(s) PO BID 07/27/2012 Inactive diazepam 10 mg tablet RxNorm: 168551 1 Tablet(s) PO TID PRN 12/201211/22/2012 Inactive TAKE 1 TABLET BY MOUTH THREE TIMES DAILY NEEDED (Appended: Controlled substance eRx refill - RxReferenceNumber: [id number]|1|0|1) Vitamin B-12 1,000 mcg/mL Injection RxNorm: 934794 1 Milliliter(s) Inj 07/13/2012 07/13/2012 Inactive pantoprazole 40 mg tablet,delayed release RxNorm: 890068 1 Tablet(s) PO daily 06/14/2012 06/13/2012 Inactive pantoprazole 40 mg tablet,delayed release RxNorm: 125641 1 Tablet(s) PO daily 06/14/2012 06/19/2013 Inactive trazodone 100 mg tablet RxNorm: 388571 Tablet(s) PO TAKE 2 TABLETS BY MOUTH EVERY NIGHT AT BEDTIME 06/06/2012 11/05/2016 Inactive hydrocodone 10 mg-acetaminophen 325 mg tablet RxNorm: 9742499 Tablet(s) PO TAKE 1 TABLET BY MOUTH FOUR TIMES DAILY 05/24/2012 08/23/2012 Inactive (Appended: Controlled substance eRx refill - RxReferenceNumber: [id number]|1|0|1) Symbicort 160 mcg-4.5 mcg/actuation HFA Aerosol Inhaler RxNorm: 9887956 1 INH daily 05/24/2012 05/23/2012 Inactive this is an increase in dosing Symbicort 160 mcg-4.5 mcg/actuation HFA Aerosol Inhaler RxNorm: 3961763 1 INH daily 05/24/2012 06/17/2013 Inactive this is an increase in dosing Ventolin HFA 90 mcg/actuation Aerosol Inhaler RxNorm: 250371 1 or 2 Puff(s) INH Q6 PRN 05/24/2012 05/23/2012 Inactive Ventolin HFA 90 mcg/actuation Aerosol Inhaler RxNorm: 049662 1 or 2 Puff(s) INH Q6 PRN 05/24/2012 02/19/2013 Inactive metoprolol tartrate 25 mg tablet RxNorm: 534572 Tablet(s) PO TAKE 1/2 TABLET BY MOUTH TWICE DAILY 05/24/2012 05/18/2013 Inactive hydrocodone-acetaminophen 10 mg-325 mg tablet RxNorm: 8260848 Tablet(s) PO TAKE 1 TABLET BY MOUTH FOUR TIMES DAILY 05/17/2012 05/17/2012 Inactive (Appended: Controlled substance eRx refill - RxReferenceNumber: [id number]|1|0|1) diazepam 10 mg tablet RxNorm: 310325 Tablet(s) PO 05/03/2012 07/13/2012 Inactive TAKE 1 TABLET BY MOUTH THREE TIMES DAILY NEEDED (Appended: Controlled substance eRx refill - RxReferenceNumber: [id number]|1|0|1) metoprolol tartrate 25 mg tablet RxNorm: 003333 Tablet(s) PO 11/05/2016 Inactive TAKE 1/2 TABLET BY MOUTH TWICE DAILY hydrocodone-acetaminophen 10 mg-325 mg tablet RxNorm: 9132572 Tablet(s) PO 04/11/2012 05/17/2012 Inactive TAKE 1 TABLET BY MOUTH FOUR TIMES DAILY (Appended: Controlled substance eRx refill - RxReferenceNumber: [id number]|1|0|1) ProAir HFA 90 mcg/actuation Aerosol Inhaler RxNorm: 881613 2 INH Q4 PRN 04/05/2012 04/29/2013 Inactive Symbicort 80 mcg-4.5 mcg/actuation HFA Aerosol Inhaler RxNorm: 5383793 2 INH BID 04/05/2012 04/04/2012 Inactive Symbicort 80 mcg-4.5 mcg/actuation HFA Aerosol Inhaler RxNorm: 3763623 2 INH BID 04/05/2012 05/23/2012 Inactive ProAir HFA 90 mcg/actuation Aerosol Inhaler RxNorm: 118974 2 INH Q4 PRN 04/05/2012 04/04/2012 Inactive diazepam 10 mg tablet RxNorm: 659122 Tablet(s) PO 03/17/2012 05/03/2012 Inactive TAKE 1 TABLET BY MOUTH THREE TIMES DAILY NEEDED (Appended: Controlled substance eRx refill - RxReferenceNumber: [id number]|1|0|1) Effexor XR 150 mg capsule,extended release RxNorm: 970049 Capsule(s) PO 03/13/2012 03/15/2013 Inactive TAKE 1 CAPSULE BY MOUTH TWICE DAILY fluconazole 150 mg tablet RxNorm: 016979 1 Tablet(s) PO daily 03/11/2012 03/17/2012 Inactive Lipitor 20 mg tablet RxNorm: 822570 Tablet(s) PO 02/25/2012 03/20/2013 Inactive TAKE ONE TABLET BY MOUTH EVERY NIGHT AT BEDTIME Seroquel 100 mg tablet RxNorm: 596039 1 Tablet(s) PO BID 201102/18/2013 Inactive TAKE 1 TABLET BY MOUTH TWICE DAILY hydrocodone-acetaminophen 10 mg-325 mg tablet RxNorm: 9021474 Tablet(s) PO 02/25/2012 04/11/2012 Inactive TAKE 1 TABLET BY MOUTH FOUR TIMES DAILY . (Appended : Controlled substance eRx refill - RxReferenceNumber: [id number]|1|0|1) Seroquel 100 mg tablet RxNorm: 238198 1 Tablet(s) PO BID 201102/24/2012 Inactive TAKE 1 TABLET BY MOUTH TWICE DAILY Nexium 40 mg capsule,delayed release RxNorm: 714007 1 Capsule(s) PO daily 02/16/2012 06/13/2012 Inactive Effexor XR 150 mg capsule,extended release RxNorm: 046532 Capsule(s) PO 01/14/2012 11/05/2016 Inactive TAKE 1 CAPSULE BY MOUTH TWICE DAILY Kenalog 40 mg/mL Susp for Injection RxNorm: 1831205 1 Milliliter(s) Inj 01/13/2012 01/13/2012 Inactive Vitamin B-12 1,000 mcg/mL Injection RxNorm: 930736 Milliliter(s) Inj 12/21/2011 12/21/2011 Inactive hydrocodone-acetaminophen 10 mg-325 mg tablet RxNorm: 7723123 Tablet(s) PO 12/15/2011 02/25/2012 Inactive TAKE 1 TABLET BY MOUTH FOUR TIMES DAILY (Appended: Controlled substance eRx refill - RxReferenceNumber: [id number]|1|0|1) diazepam 10 mg tablet RxNorm: 348683 Tablet(s) PO 12/15/2011 03/17/2012 Inactive TAKE 1 TABLET BY MOUTH THREE TIMES DAILY NEEDED (Appended: Controlled substance eRx refill - RxReferenceNumber: [id number]|1|0|1) diazepam 10 mg Tab RxNorm: 522378 1 Tablet(s) PO daily 201112/15/2011 Inactive TAKE 1 TABLET BY MOUTH THREE TIMES DAILY (Appended: Controlled substance eRx refill - RxReferenceNumber: [id number]|1|0|1) hydrocodone-acetaminophen 10 mg-325 mg Tab RxNorm: 0832404 1 Tablet(s) PO QID 12/14/2011 12/15/2011 Inactive TAKE 1 TABLET BY MOUTH FOUR TIMES DAILY (Appended: Controlled substance eRx refill - RxReferenceNumber: [id number]|1|0|1) Seroquel 100 mg tablet RxNorm: 449471 Tablet(s) PO 11/27/2011 03/15/2013 Inactive TAKE 1 TABLET BY MOUTH TWICE DAILY hydrocodone-acetaminophen 10 mg-325 mg Tab RxNorm: 5911143 1 Tablet(s) PO QID 11/27/2011 12/13/2011 Inactive TAKE 1 TABLET BY MOUTH FOUR TIMES DAILY (Appended: Controlled substance eRx refill - RxReferenceNumber: [id number]|1|0|1) Seroquel 100 mg Tab RxNorm: 852959 1 Tablet(s) PO BID 201111/26/2011 Inactive Seroquel 100 mg tablet RxNorm: 605657 Tablet(s) PO 11/27/2011 02/16/2012 Inactive TAKE 1 TABLET BY MOUTH TWICE DAILY Nexium 40 mg capsule,delayed release RxNorm: 843282 1 Capsule(s) PO daily 11/16/2011 02/15/2012 Inactive cyanocobalamin (vitamin B-12) 1,000 mcg/mL Injection RxNorm: 303010 1 Milliliter(s ) Inj 10/30/2011 10/30/2011 Inactive hydrocodone-acetaminophen 10 mg-325 mg Tab RxNorm: 5356767 1 Tablet(s) PO QID 10/13/2011 11/23/2011 Inactive TAKE 1 TABLET BY MOUTH FOUR TIMES DAILY (Appended: Controlled substance eRx refill - RxReferenceNumber: [id number]|1|0|1) Effexor XR 150 mg capsule,extended release RxNorm: 496607 1 Capsule(s) PO BID 10/12/2011 01/09/2012 Inactive Fish Oil 1,000 mg Cap RxNorm: 1 Capsule(s) PO QID 10/02/2011 No Stop Date Active Vitamin B-12 1,000 mcg/mL Injection RxNorm: 293908 Milliliter(s) Inj 10/02/2011 10/02/2011 Inactive Kenalog 40 mg/mL Susp for Injection RxNorm: 7935555 Milliliter(s) Inj 10/02/2011 10/02/2011 Inactive diazepam 10 mg Tab RxNorm: 294950 1 Tablet(s) PO daily 201112/13/2011 Inactive TAKE 1 TABLET BY MOUTH THREE TIMES DAILY (Appended: Controlled substance eRx refill - RxReferenceNumber: [id number]|1|0|1) Vitamin B-12 1,000 mcg/mL Injection RxNorm: 913298 Milliliter(s) Inj 09/01/2011 09/01/2011 Inactive hydrocodone-acetaminophen 10 mg-325 mg Tab RxNorm: 5332302 1 Tablet(s) PO QID 08/25/2011 10/05/2011 Inactive TAKE 1 TABLET BY MOUTH FOUR TIMES DAILY (Appended: Controlled substance eRx refill - RxReferenceNumber: [id number]|1|0|1) diazepam 10 mg Tab RxNorm: 917296 Tablet(s) PO 08/10/2011 No Stop Date Active TAKE 1 TABLET BY MOUTH THREE TIMES DAILY (Appended: Controlled substance eRx refill - RxReferenceNumber: [id number]|1|0|1) Vitamin B-12 1,000 mcg/mL Injection RxNorm: 910052 Milliliter(s) Inj 08/03/2011 08/03/2011 Inactive fluticasone 50 mcg/actuation Nasal [place], Susp RxNorm: 9479343 2 [place] NASAL BID 07/27/2011 08/19/2012 Inactive hydrocodone-acetaminophen 10 mg-325 mg Tab RxNorm: 5906628 Tablet(s) PO 07/09/2011 08/24/2011 Inactive TAKE 1 TABLET BY MOUTH FOUR TIMES DAILY (Appended: Controlled substance eRx refill - RxReferenceNumber: [id number]|1|0|1) diazepam 10 mg Tab RxNorm: 395585 Tablet(s) PO 07/09/2011 08/09/2011 Inactive TAKE 1 TABLET BY MOUTH THREE TIMES DAILY (Appended: Controlled substance eRx refill - RxReferenceNumber: [id number]|1|0|1) diazepam 10 mg Tab RxNorm: 381470 Tablet(s) PO 07/08/2011 07/08/2011 Inactive TAKE 1 TABLET BY MOUTH THREE TIMES DAILY (Appended: Controlled substance eRx refill - RxReferenceNumber: [id number]|1|0|1) hydrocodone-acetaminophen 10 mg-325 mg Tab RxNorm: 3912159 Tablet(s) PO 07/08/2011 07/08/2011 Inactive TAKE 1 TABLET BY MOUTH FOUR TIMES DAILY (Appended: Controlled substance eRx refill - RxReferenceNumber: [id number]|1|0|1) cyclobenzaprine 10 mg tablet RxNorm: 142912 Tablet(s) PO 201109/01/2012 Inactive TAKE ONE TABLET BY MOUTH THREE TIMES DAILY Lipitor 40 mg Tab RxNorm: 080577 1 Tablet(s) PO daily 201106/16/2011 Inactive Lipitor 40 mg Tab RxNorm: 873659 1 Tablet(s) PO daily 201106/10/2012 Inactive trazodone 100 mg tablet RxNorm: 110381 Tablet(s) PO 06/02/2011 06/05/2012 Inactive TAKE 2 TABLETS BY MOUTH EVERY NIGHT AT BEDTIME diazepam 10 mg Tab RxNorm: 604617 Tablet(s) PO 05/28/2011 05/29/2011 Inactive TAKE 1 TABLET BY MOUTH THREE TIMES DAILY (Appended: Controlled substance eRx refill - RxReferenceNumber: [id number]|1|0|1) diazepam 10 mg Tab RxNorm: 719250 Tablet(s) PO 05/28/2011 07/08/2011 Inactive TAKE 1 TABLET BY MOUTH THREE TIMES DAILY (Appended: Controlled substance eRx refill - RxReferenceNumber: [id number]|1|0|1) hydrocodone-acetaminophen 10 mg-325 mg Tab RxNorm: 7629097 1 Tablet(s) PO QID 05/26/2011 07/08/2011 Inactive metoprolol tartrate 25 mg tablet RxNorm: 546659 Tablet(s) PO 04/10/2012 Inactive TAKE 1/2 TABLET BY MOUTH TWICE DAILY Savella 100 mg tablet RxNorm: 285128 Tablet(s) PO 05/14/2011 10/13/2012 Inactive TAKE 1 TABLET BY MOUTH DAILY Influenza Virus Vaccine 0.5 mL RxNorm: IM 02/23/2011 02/23/2011 Inactive B12 1000 mcg RxNorm: IM 02/23/20112010 Inactive hydrocodone-acetaminophen 10 mg-325 mg Tab RxNorm: 5948365 1 Tablet(s) PO QID 01/29/2011 01/28/2011 Inactive Restasis 0.05 % eye drops in a dropperette RxNorm: 594222 1 OPH BID No Start Date Active vitamin A-vit C-vit E-zinc-Se Tab RxNorm: 1 Tablet(s) PO daily No Start Date Active garlic extract Oral RxNorm: Oral No Start Date Active Acidophilus Tab RxNorm : 2 Tablet(s) PO QHS No Start Date Active Cranberry Concentrate Cap RxNorm: 1 Capsule(s) PO BID No Start Date Active Xopenex 1.25 mg/3 mL Neb Solution RxNorm: 362699 1 Milliliter(s) INH TID No Start Date Active niacin ER 500 mg Tab RxNorm: 072655 2 Tablet(s) PO HS No Start Date Active SenokotXTRA 17.2 mg Tab RxNorm: 7716793 Oral No Start Date Active Lotemax 0.5 % eye ointment RxNorm: 7066520 1 OPH QHS No Start Date Active Gaviscon Extra Strength Oral RxNorm: Oral No Start Date Active melatonin 3 mg Tab RxNorm: 188169 1 Tablet(s) PO QHS No Start Date Active Voltaren 1 % Topical Gel RxNorm: 072626 4 Gram(s) TOP QID No Start Date Active Vitamin D 1,000 unit Cap RxNorm: 661127 1 Capsule(s) PO QHS No Start Date Active Mucinex DM 30 mg-600 mg 12 hr Tab RxNorm: 4366819 1 Tablet(s) PO BID No Start Date Active calcium citrate 200 mg (950 mg) Tab RxNorm: 133061 1 Tablet(s) PO QID No Start Date Active valerian 530 mg Cap RxNorm: 2 Capsule(s) PO QHS No Start Date Active Anucort-HC 25 mg Suppository RxNorm: 6734154 1 Suppository RTL QDAY PRN No Start Date 01/14/2014 Inactive Nexium 40 mg Capsule, delayed release RxNorm: 051556 1 Capsule(s) PO daily No Start Date 11/15/2011 Inactive Lipitor 20 mg tablet RxNorm: 343267 1 Tablet(s) PO QHS No Start Date 02/25/2012 Inactive mupirocin 2 % topical ointment RxNorm: 124314 1 Application TOP PRN No Start Date 10/16/2013 Inactive fluconazole 150 mg tablet RxNorm: 794546 1 Tablet(s) PO daily No Start Date 03/10/2012 Inactive Fish Oil 1,000 mg Cap RxNorm: 1 Capsule(s) PO TID No Start Date 10/01/2011 Inactive hydrocodone-acetaminophen 10 mg-325 mg Tab RxNorm: 9738667 1 Tablet(s) PO QID No Start Date 05/25/2011 Inactive Zithromax 250 mg tablet RxNorm: 413347 Tablet(s) PO No Start Date 07/20/2012 Inactive please give z lauro prednisone 10 mg tablet RxNorm: 593270 Tablet(s) PO taper. 6-5-4-3-2-1 # 21 No Start Date 09/16/2017 Inactive fluticasone 50 mcg/actuation Nasal [place], Susp RxNorm: 3129689 2 [place] NASAL BID No Start Date 07/26/2011 Inactive Seroquel 100 mg Tab RxNorm: 780317 1 Tablet(s) PO BID No Start Date 11/26/2011 Inactive nystatin 100,000 unit/gram topical powder RxNorm: 334963 1 Application TOP QID until healed No Start Date 10/26/2016 Inactive Savella 100 mg Tab RxNorm: 328753 1 Tablet(s) PO daily No Start Date 05/13/2011 Inactive cyclobenzaprine 10 mg Tab RxNorm: 833886 1 Tablet(s) PO TID No Start Date 07/05/2011 Inactive metoprolol tartrate 25 mg Tab RxNorm: 378909 1/2 Tablet(s) PO BID No Start Date 05/25/2011 Inactive trazodone 100 mg Tab RxNorm: 769769 2 Tablet(s) PO QHS No Start Date 06/01/2011 Inactive Zithromax Z-Lauro 250 mg tablet RxNorm: 012927 1 Tablet(s) PO UD No Start Date 07/11/2015 Inactive z lauro Effexor XR 150 mg 24 hr Cap RxNorm: 324469 1 Capsule(s) PO BID No Start Date 10/11/2011 Inactive diazepam 10 mg Tab RxNorm: 401746 1 Tablet(s) PO TID No Start Date 05/28/2011 Inactive tramadol 50 mg tablet RxNorm: 878409 1-2 Tablet(s) PO Q6 as needed No Start Date 05/28/2015 Inactive Medication Administered Medication Codes Instructions Start Date Status cyanocobalamin (vit B-12) 1,000 mcg/mL injection solution RxNorm: 532087 1Milliliter 03/10/2018 No longer Active cyanocobalamin (vit B-12) 1,000 mcg/mL injection solution RxNorm: 506819 1Milliliter 10/19/2017 No longer Active cyanocobalamin (vit B-12) 1,000 mcg/mL injection solution RxNorm: 830827 1Milliliter 08/19/2017 No longer Active cyanocobalamin (vit B-12) 1,000 mcg/mL injection solution RxNorm: 109367 1Milliliter 07/06/2017 No longer Active cyanocobalamin (vit B-12) 1,000 mcg/mL injection solution RxNorm: 579848 1Milliliter 04/27/2017 No longer Active cyanocobalamin (vit B-12) 1,000 mcg/mL injection solution RxNorm: 971266 1Milliliter 11/17/2016 No longer Active cyanocobalamin (vit B-12) 1,000 mcg/mL injection solution RxNorm: 554801 1Milliliter 10/12/2016 No longer Active cyanocobalamin (vit B-12) 1,000 mcg/mL injection solution RxNorm: 327934 1Milliliter 09/11/2016 No longer Active cyanocobalamin (vit B-12) 1,000 mcg/mL injection solution RxNorm: 216768 Milliliter 07/03/2016 No longer Active cyanocobalamin (vit B-12) 1,000 mcg/mL injection solution RxNorm: 253230 1Milliliter 04/20/2016 No longer Active cyanocobalamin (vit B-12) 1,000 mcg/mL injection solution RxNorm: 786561 Milliliter 02/13/2016 No longer Active cyanocobalamin (vit B-12) 1,000 mcg/mL injection solution RxNorm: 492949 1Milliliter 12/02/2015 No longer Active cyanocobalamin (vit B-12) 1,000 mcg/mL injection solution RxNorm: 763801 1Milliliter 10/29/2015 No longer Active cyanocobalamin (vit B-12) 1,000 mcg/mL injection solution RxNorm: 774338 Milliliter 06/10/2015 No longer Active cyanocobalamin (vit B-12) 1,000 mcg/mL injection solution RxNorm: 860698 Milliliter 02/15/2014 No longer Active cyanocobalamin (vit B-12) 1,000 mcg/mL injection kit RxNorm : 940723 1Milliliter 01/15/2014 No longer Active Kenalog 40 mg/mL suspension for injection RxNorm: 3235646 1Milliliter 01/15/2014 No longer Active cyanocobalamin (vit B-12) 1,000 mcg/mL injection solution RxNorm: 499197 1Milliliter 12/04/2013 No longer Active Vitamin B-12 1,000 mcg/mL injection solution RxNorm: 535934 Milliliter 07/24/2013 No longer Active Vitamin B-12 1,000 mcg/mL injection solution RxNorm: 871710 1Milliliter 05/10/2013 No longer Active Kenalog 40 mg/mL Susp for Injection RxNorm: 1558782 Milliliter 03/06/2013 No longer Active cyanocobalamin (vitamin B-12) 1,000 mcg/mL Injection RxNorm : 070944 Milliliter 02/20/2013 No longer Active Kenalog 40 mg/mL Susp for Injection RxNorm: 9009873 Milliliter 12/26/2012 No longer Active cyanocobalamin (vitamin B-12) 1,000 mcg/mL Injection RxNorm : 544925 Milliliter 12/21/2012 No longer Active Vitamin B-12 1,000 mcg/mL Injection RxNorm: 723186 1Milliliter 11/16/2012 No longer Active Tubersol 5 tub. unit/0.1 mL Intradermal RxNorm: 856859 Milliliter 09/26/2012 No longer Active cyanocobalamin (vitamin B-12) 1,000 mcg/mL Injection RxNorm : 078983 1Milliliter 09/12/2012 No longer Active Kenalog 40 mg/mL Susp for Injection RxNorm: 3589533 1Milliliter 08/11/2012 No longer Active Vitamin B-12 1,000 mcg/mL Injection RxNorm: 081012 1Milliliter 08/11/2012 No longer Active Vitamin B-12 1,000 mcg/mL Injection RxNorm: 459260 1Milliliter 07/13/2012 No longer Active Kenalog 40 mg/mL Susp for Injection RxNorm: 2641655 1Milliliter 01/13/2012 No longer Active Vitamin B-12 1,000 mcg/mL Injection RxNorm: 541389 Milliliter 12/21/2011 No longer Active cyanocobalamin (vitamin B-12) 1,000 mcg/mL Injection RxNorm : 179625 1Milliliter 10/30/2011 No longer Active Vitamin B-12 1,000 mcg/mL Injection RxNorm: 365681 Milliliter 10/02/2011 No longer Active Kenalog 40 mg/mL Susp for Injection RxNorm: 2961719 Milliliter 10/02/2011 No longer Active Vitamin B-12 1,000 mcg/mL Injection RxNorm: 869546 Milliliter 09/01/2011 No longer Active Vitamin B-12 1,000 mcg/mL Injection RxNorm: 733575 Milliliter 08/03/2011 No longer Active B12 1000 [...] 2011 Weight gain ICD-9: 783.1 06/29/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 10/2010 Reason For Visit Reason [...] injuries from a fall (hurts after sitting "[place]og[place]ese style" abdominal pain 02/12/2011 joint complaint 01/29/2011 Results Observation Observation Code Item Item Code Result Date Comp Metabolic Dve098 NA 138 mEq/L 09/20/2017 Comp Metabolic Obe328 K 4.1 mEq/L 09/20/2017 Comp Metabolic Eiq943 CL 101 mEq/L 09/20/2017 Comp Metabolic Kix584 CO2 25.0 mEq/L 09/20/2017 Comp Metabolic Rto536 ANION GAP 16 09/20/2017 Comp Metabolic Gvn464 GLUCOSE 105 mg/dL 09/20/2017 Comp Metabolic Mwd066 Creat 0.8 mg/dL 09/20/2017 Comp Metabolic Qha822 eGFR 86 ml/min/1.73m2 09/20/2017 Comp Metabolic Iag480 BUN 24 mg/dL 09/20/2017 Comp Metabolic Dlp887 B/C Ratio 31.6 Ratio 09/20/2017 Comp Metabolic Sgg095 CALCIUM 10.0 mg/dL 09/20/2017 Comp Metabolic Brp561 ALK PHOS 63 U/L 09/20/2017 Comp Metabolic Lha339 AST(SGOT) 28 U/L 09/20/2017 Comp Metabolic Cxj221 ALT(SGPT) 34 U/L 09/20/2017 Comp Metabolic Noy440 BILI T 0.3 mg/dL 09/20/2017 Comp Metabolic Ncs251 ALBUMIN 4.8 g/dL 09/20/2017 Comp Metabolic Ttk586 TPRO 7.2 g/dL 09/20/2017 Comp Metabolic Tnw557 GLOB 2.4 g/dL 09/20/2017 Comp Metabolic Tlr443 A/G Ratio 2.0 Ratio 09/20/2017 Comp Metabolic Wvg409 Osmo 280 mOsmo 09/20/2017 Urine Culture Ucult Preliminary NO Growth Day 1 09/20/2017 Urine Culture Ucult Complete NO Growth Day 2 09/20/2017 Vitamin D 25 Oh [id number] VITAMIN D, 25 HYDROXY 46.43 ng/mL Comp Metabolic Bxv588 NA 143 mEq/L 08/25/2017 Comp Metabolic Zgl445 K 4.1 mEq/L 08/25/2017 Comp Metabolic Kcq978 CL 102 mEq/L 08/25/2017 Comp Metabolic Bal382 CO2 33.0 mEq/L 08/25/2017 Comp Metabolic Koo427 ANION GAP 12 08/25/2017 Comp Metabolic Wly953 GLUCOSE 99 mg/dL 08/25/2017 Comp Metabolic Sih136 Creat 0.8 mg/dL 08/25/2017 Comp Metabolic Fma757 eGFR 86 ml/min/1.73m2 08/25/2017 Comp Metabolic Ziv181 BUN 19 mg/dL 08/25/2017 Comp Metabolic Rbv931 B/C Ratio 25.0 Ratio 08/25/2017 Comp Metabolic Bhb114 CALCIUM 9.5 mg/dL 08/25/2017 Comp Metabolic Rpt065 ALK PHOS 63 U/L 08/25/2017 Comp Metabolic Cer046 AST(SGOT) 17 U/L 08/25/2017 Comp Metabolic Fyl192 ALT(SGPT) 20 U/L 08/25/2017 Comp Metabolic Bql603 BILI T 0.3 mg/dL 08/25/2017 Comp Metabolic Awx361 ALBUMIN 4.5 g/dL 08/25/2017 Comp Metabolic Pct404 TPRO 6.6 g/dL 08/25/2017 Comp Metabolic Hqw498 GLOB 2.1 g/dL 08/25/2017 Comp Metabolic Mgg398 A/G Ratio 2.1 Ratio 08/25/2017 Comp Metabolic Opw342 Osmo 287 mOsmo 08/25/2017 B12 Vhm006 B12 904.00 pg/ml 08/25/2017 Tsh Ord6 TSH [...] 103.4 fl 08/25/2017 Cbc With Differential Ord2 [place]% 7.5 % 08/25/2017 Cbc With Differential Ord2 [...] 3.65 K/ul 08/25/2017 Cbc With Differential Ord2 [place] ABS# 0.6 K/ul 08/25/2017 Cbc With Differential Ord2 Eos ABS# 0.1 K/ul 08/25/2017 Cbc With Differential Ord2 Baso ABS# 0.0 K/ul 08/25/2017 Tsh Ord6 hTSH II 1.18 uIU/mL 10/12/2016 Comp Metabolic Dck786 NA 139 mEq/L 10/12/2016 Comp Metabolic Qao201 K 3.5 mEq/L 10/12/2016 Comp Metabolic Rbt306 CL 102 mEq/L 10/12/2016 Comp Metabolic Qyw946 CO2 25.0 mEq/L 10/12/2016 Comp Metabolic Dex148 ANION GAP 16 10/12/2016 Comp Metabolic Pdn396 GLUCOSE 84 mg/dL 10/12/2016 Comp Metabolic Jhm160 Creat 0.6 mg/dL 10/12/2016 Comp Metabolic Hkx612 eGFR 105 ml/min/1.73m2 10/12/2016 Comp Metabolic Khl924 BUN 12 mg/dL 10/12/2016 Comp Metabolic Lne060 B/C Ratio 18.8 Ratio 10/12/2016 Comp Metabolic Xkz095 CALCIUM 9.2 mg/dL 10/12/2016 Comp Metabolic Bpe221 ALK PHOS 59 U/L 10/12/2016 Comp Metabolic Yoj292 AST(SGOT) 21 U/L 10/12/2016 Comp Metabolic Bvz403 ALT(SGPT) 27 U/L 10/12/2016 Comp Metabolic Vdb802 BILI T 0.2 mg/dL 10/12/2016 Comp Metabolic Kxy535 ALBUMIN 4.4 g/dL 10/12/2016 Comp Metabolic Tag549 TPRO 6.7 g/dL 10/12/2016 Comp Metabolic Eyj938 GLOB 2.3 g/dL 10/12/2016 Comp Metabolic Imx078 A/G Ratio 1.9 Ratio 10/12/2016 Comp Metabolic Hqj910 Osmo 276 mOsmo 10/12/2016 Cbc With Differential [...] 103.0 fl 10/12/2016 Cbc With Differential Ord2 [place]% 8.0 % 10/12/2016 Cbc With Differential Ord2 [...] 3.12 K/ul 10/12/2016 Cbc With Differential Ord2 [place] ABS# 0.8 K/ul 10/12/2016 Cbc With Differential Ord2 Eos ABS# 0.1 K/ul 10/12/2016 Cbc With Differential Ord2 Baso ABS# 0.0 K/ul 10/12/2016 Lipid Ord30 CHOL 194 mg/dL 10/12/2016 Lipid Ord30 HDL 76.0 mg/dl 10/12/2016 Lipid Ord30 TRIG 159 mg/dL 10/12/2016 Lipid Ord30 LDL 86 mg/dL 10/12/2016 Lipid Ord30 C/HDL 2.6 Ratio 10/12/2016 Comp Metabolic Tge070 NA 139 mEq/L 09/11/2016 Comp Metabolic Eci207 K 3.6 mEq/L 09/11/2016 Comp Metabolic Pil209 CL 102 mEq/L 09/11/2016 Comp Metabolic Glc312 CO2 26.0 mEq/L 09/11/2016 Comp Metabolic Vwz132 ANION GAP 15 09/11/2016 Comp Metabolic Vmp170 GLUCOSE 90 mg/dL 09/11/2016 Comp Metabolic Wdu014 Creat 0.6 mg/dL 09/11/2016 Comp Metabolic Sfd300 eGFR 111 ml/min/1.73m2 09/11/2016 Comp Metabolic Zvj514 BUN 14 mg/dL 09/11/2016 Comp Metabolic Snx740 B/C Ratio 23.0 Ratio 09/11/2016 Comp Metabolic Uly205 CALCIUM 9.0 mg/dL 09/11/2016 Comp Metabolic Lgl998 ALK PHOS 56 U/L 09/11/2016 Comp Metabolic Yzy812 AST(SGOT) 21 U/L 09/11/2016 Comp Metabolic Sak528 ALT(SGPT) 17 U/L 09/11/2016 Comp Metabolic Lkx885 BILI T 0.2 mg/dL 09/11/2016 Comp Metabolic Lie606 ALBUMIN 4.1 g/dL 09/11/2016 Comp Metabolic Maa048 TPRO 6.5 g/dL 09/11/2016 Comp Metabolic Gxq078 GLOB 2.4 g/dL 09/11/2016 Comp Metabolic Nsu026 A/G Ratio 1.7 Ratio 09/11/2016 Comp Metabolic Oyz833 Osmo 278 mOsmo 09/11/2016 Tsh Ord6 hTSH [...] 33.0 pg 09/11/2016 Cbc With Differential Ord2 [place]% 8.6 % 09/11/2016 Cbc With Differential Ord2 [...] 3.35 K/ul 09/11/2016 Cbc With Differential Ord2 [place] ABS# 1.0 K/ul 09/11/2016 Cbc With Differential Ord2 Eos ABS# 0.1 K/ul 09/11/2016 Cbc With Differential Ord2 Baso ABS# 0.0 K/ul 09/11/2016 Lipid Ord30 CHOL 168 mg/dL 09/11/2016 Lipid Ord30 HDL 74.0 mg/dl 09/11/2016 Lipid Ord30 TRIG 167 mg/dL 09/11/2016 Lipid Ord30 LDL 61 mg/dL 09/11/2016 Lipid Ord30 C/HDL 2.3 Ratio 09/11/2016 B12 Zaq042 B12 474.00 pg/ml 09/11/2016 B12 Ipb176 B12 827.00 pg/ml 03/02/2016 Cbc With Differential [...] 34.0 pg 02/28/2016 Cbc With Differential Ord2 [place]% 5.4 % 02/28/2016 Cbc With Differential Ord2 [...] 2.08 K/ul 02/28/2016 Cbc With Differential Ord2 [place] ABS# 0.3 K/ul 02/28/2016 Cbc With Differential Ord2 Eos ABS# 0.1 K/ul 02/28/2016 Cbc With Differential Ord2 Baso ABS# 0.0 K/ul 02/28/2016 Sed Rate Ord21 ESR 5 mm/hr 02/28/2016 C-Reactive Protein Qnt Crqnt CRP 0.1 mg/dl 02/28/2016 Comp Metabolic Mlf228 NA 136 mEq/L 02/28/2016 Comp Metabolic Xeo294 K 4.0 mEq/L 02/28/2016 Comp Metabolic Zut269 CL 103 mEq/L 02/28/2016 Comp Metabolic Dwy176 CO2 27.0 mEq/L 02/28/2016 Comp Metabolic Tsh981 ANION GAP 10 02/28/2016 Comp Metabolic Pkd957 GLUCOSE 138 mg/dL 02/28/2016 Comp Metabolic Uez254 Creat 0.6 mg/dL 02/28/2016 Comp Metabolic Xfv062 eGFR 120 ml/min/1.73m2 02/28/2016 Comp Metabolic Jrq448 BUN 15 mg/dL 02/28/2016 Comp Metabolic Kad836 B/C Ratio 26.3 Ratio 02/28/2016 Comp Metabolic Mpz575 CALCIUM 8.8 mg/dL 02/28/2016 Comp Metabolic Ueb229 ALK PHOS 58 U/L 02/28/2016 Comp Metabolic Sef455 AST(SGOT) 21 U/L 02/28/2016 Comp Metabolic Pqo472 ALT(SGPT) 21 U/L 02/28/2016 Comp Metabolic Gup090 BILI T 0.2 mg/dL 02/28/2016 Comp Metabolic Eqz567 ALBUMIN 3.8 g/dL 02/28/2016 Comp Metabolic Prc176 TPRO 5.7 g/dL 02/28/2016 Comp Metabolic Wvl585 GLOB 1.9 g/dL 02/28/2016 Comp Metabolic Gdh405 A/G Ratio 2.0 Ratio 02/28/2016 Comp Metabolic Wwv214 Osmo 275 mOsmo 02/28/2016 Tsh Ord6 hTSH II 1.25 uIU/mL 02/28/2016 B12 Pxa288 B12 >1500.00 pg/ml 01/11/2016 Vitamin D 25 Oh Khs7014 VITAMIN D, 25 HYDROXY 45.94 ng/mL Comp Metabolic Qjy326 NA 136 mEq/L 03/21/2015 Comp Metabolic Dgi982 K 3.8 mEq/L 03/21/2015 Comp Metabolic Jcg637 CL 101 mEq/L 03/21/2015 Comp Metabolic Uej378 CO2 31.0 mEq/L 03/21/2015 Comp Metabolic Lmt347 ANION GAP 8 03/21/2015 Comp Metabolic Tzf822 GLUCOSE 101 mg/dL 03/21/2015 Comp Metabolic Ymi857 Creat 0.7 mg/dL 03/21/2015 Comp Metabolic Opz619 eGFR 94 ml/min/1.73m2 03/21/2015 Comp Metabolic Qil388 BUN 13 mg/dL 03/21/2015 Comp Metabolic Qfp383 B/C Ratio 18.3 Ratio 03/21/2015 Comp Metabolic Djv767 CALCIUM 9.3 mg/dL 03/21/2015 Comp Metabolic Rpd448 ALK PHOS 58 U/L 03/21/2015 Comp Metabolic Gnd824 AST(SGOT) 18 U/L 03/21/2015 Comp Metabolic Njq447 ALT(SGPT) 22 U/L 03/21/2015 Comp Metabolic Nuy441 BILI T 0.3 mg/dL 03/21/2015 Comp Metabolic Bxk921 ALBUMIN 4.4 g/dL 03/21/2015 Comp Metabolic Hui410 TPRO 6.7 g/dL 03/21/2015 Comp Metabolic Hfe187 GLOB 2.3 g/dL 03/21/2015 Comp Metabolic Aez273 A/G Ratio 1.9 Ratio 03/21/2015 Comp Metabolic Zma726 Osmo 272 mOsmo 03/21/2015 %Hba1C Gmk639 % HbA1c 56942-8 5.4 % 03/21/2015 %Hba1C Tkq119 Gluc Ave 108 mg/dL 03/21/2015 Cbc With [...] 1.32 uIU/mL 03/21/2015 URINALYSIS NONAUTO W/O SCOPE 26037 Specific [place] 1.025 DateTime(Free Text in Aprima) URINALYSIS NONAUTO W/O SCOPE 66393 PH 5.0 DateTime(Free Text in Aprima) URINALYSIS NONAUTO W/O SCOPE 96372 GLUCOSE NEG DateTime( Free Text in Apr[employer]) URINALYSIS NONAUTO W/O SCOPE 86176 Protein NEG DateTime( Free Text in Apr[employer]) URINALYSIS NONAUTO W/O SCOPE 20081 Blood NEG DateTime(Free Text in Apr[employer]) URINALYSIS NONAUTO W/O SCOPE 63264 Bilirubin NEG DateTime(Free Text in Apr[employer]) URINALYSIS NONAUTO W/O SCOPE 59404 Ketones NEG DateTime( Free Text in [employer]) URINALYSIS NONAUTO W/O SCOPE 92515 Urobilinogen NEG DateTime(Free Text in ) URINALYSIS NONAUTO W/O SCOPE 25543 Nitrite NEG DateTime( Free Text in ) URINALYSIS NONAUTO W/O SCOPE 61138 Leukocytes NEG DateTime(Free Text in ) Review of Systems System Result Effective Dates [...] exam 07/13/2012 None Full Exam - General 1995 Musculoskeletal lower extremity Palpation - foot: tender [...] accomodation 06/11/2011 None Full Exam - General 1995 Cardiovascular [...] Procedure Codes Date THER/PROPH/DIAG INJ SC/IM CPT-4: 51163 04/05/2018 VITAMIN B12 INJECTION CPT-4: J3420 04/05/2018 THER/PROPH/DIAG INJ SC/IM CPT-4: 55030 03/10/2018 VITAMIN B12 INJECTION CPT-4: J3420 03/10/2018 THER/PROPH/DIAG INJ SC/IM CPT-4: 65652 10/19/2017 VITAMIN B12 INJECTION CPT-4: J3420 10/19/2017 URINALYSIS NONAUTO W/O SCOPE CPT-4: 96368 09/17/2017 THER/PROPH/DIAG INJ SC/IM CPT-4: 77022 08/19/2017 VITAMIN B12 INJECTION CPT-4: J3420 08/19/2017 THER/PROPH/DIAG INJ SC/IM CPT-4: 38292 07/06/2017 VITAMIN B12 INJECTION CPT-4: J3420 07/06/2017 THER/PROPH/DIAG INJ SC/IM CPT-4: 31765 04/27/2017 VITAMIN B12 INJECTION CPT-4: J3420 04/27/2017 THER/PROPH/DIAG INJ SC/IM CPT-4: 55608 11/17/2016 VITAMIN B12 INJECTION CPT-4: J3420 11/17/2016 THER/PROPH/DIAG INJ SC/IM CPT-4: 55707 10/12/2016 VITAMIN B12 INJECTION CPT-4: J3420 10/12/2016 THER/PROPH/DIAG INJ SC/IM CPT-4: 03242 09/11/2016 VITAMIN B12 INJECTION CPT-4: J3420 09/11/2016 THER/PROPH/DIAG INJ SC/IM CPT-4: 55405 07/03/2016 VITAMIN B12 INJECTION CPT-4: J3420 07/03/2016 VITAMIN B12 INJECTION CPT-4: J3420 04/20/2016 THER/PROPH/DIAG INJ SC/IM CPT-4: 12607 04/20/2016 ADMIN INFLUENZA VIRUS VAC CPT-4: G0008 03/17/2016 IIV4 FLU VACC NO PRESERV ID Formatting Model/CDA Sections, Assigned to/Kathy Lopez SNOMED CT: [id number] CPT-4: [id number] 03/17/2016 THER/PROPH/DIAG INJ SC/IM CPT-4: 69262 02/13/2016 VITAMIN B12 INJECTION CPT-4: J3420 02/13/2016 URINALYSIS NONAUTO W/O SCOPE CPT-4: 24713 12/10/2015 THER/PROPH/DIAG INJ SC/IM CPT-4: 17532 12/02/2015 VITAMIN B12 INJECTION CPT-4: J3420 12/02/2015 PNEUMOCOCCAL VACC [address]: [id number] CPT-4: 92597 12/02/2015 IMMUNIZATION ADMIN CPT -4: 12961 12/02/2015 THER/PROPH/DIAG INJ SC/IM CPT-4: 97164 10/29/2015 VITAMIN B12 INJECTION CPT-4: J3420 10/29/2015 THER/PROPH/DIAG INJ SC/IM CPT-4: 83484 06/10/2015 VITAMIN B12 INJECTION CPT-4: J3420 06/10/2015 THER/PROPH/DIAG INJ SC/IM CPT-4: 11963 02/15/2014 VITAMIN B12 INJECTION CPT-4: J3420 02/15/2014 TRIAMCINOLONE ACET INJ NOS CPT-4: J3301 01/15/2014 VITAMIN B12 INJECTION CPT-4: J3420 01/15/2014 THER/PROPH/DIAG INJ SC/IM CPT-4: 97964 12/04/2013 VITAMIN B12 INJECTION CPT-4: J3420 12/04/2013 THER/PROPH/DIAG INJ SC/IM CPT-4: 28772 07/24/2013 VITAMIN B12 INJECTION CPT-4: J3420 07/24/2013 PRESCRIP TRANSMIT VIA ERX SY CPT-4: G8553 06/12/2013 VITAMIN B12 INJECTION CPT-4: J3420 05/10/2013 THER/PROPH/DIAG INJ SC/IM CPT-4: 33735 05/10/2013 TRIAMCINOLONE ACET INJ NOS CPT-4: J3301 03/06/2013 PRESCRIP TRANSMIT VIA ERX SY CPT-4: G8553 03/06/2013 ADMIN INFLUENZA VIRUS VAC CPT-4: G0008 02/20/2013 FLULAVAL VACC, 3 YRS & >, IM CPT-4: Q2036 02/20/2013 THER/PROPH/DIAG INJ SC/IM CPT-4: 57806 02/20/2013 VITAMIN B12 INJECTION CPT-4: J3420 02/20/2013 THER/PROPH/DIAG INJ SC/IM CPT-4: 86461 12/26/2012 TRIAMCINOLONE ACET INJ NOS CPT-4: J3301 12/26/2012 THER/PROPH/DIAG INJ SC/IM CPT-4: 66631 12/21/2012 VITAMIN B12 INJECTION CPT-4: J3420 12/21/2012 THER/PROPH/DIAG INJ SC/IM CPT-4: 61549 11/16/2012 VITAMIN B12 INJECTION CPT-4: J3420 11/16/2012 TB INTRADERMAL TEST (includes injection fee) CPT-4: 06561 09/26/2012 THER/PROPH/DIAG INJ SC/IM CPT-4: 50169 09/12/2012 VITAMIN B12 INJECTION CPT-4: J3420 09/12/2012 TRIAMCINOLONE ACET INJ NOS CPT-4: J3301 08/11/2012 VITAMIN B12 INJECTION CPT-4: J3420 08/11/2012 THER/PROPH/DIAG INJ SC/IM CPT-4: 87342 08/11/2012 VITAMIN B12 INJECTION CPT-4: J3420 07/13/2012 THER/PROPH/DIAG INJ SC/IM CPT-4: 06924 07/13/2012 THER/PROPH/DIAG INJ SC/IM CPT-4: 82785 05/26/2012 TRIAMCINOLONE ACET INJ NOS CPT-4: J3301 05/26/2012 VITAMIN B12 INJECTION CPT-4: J3420 05/26/2012 ADMIN INFLUENZA VIRUS VAC CPT-4: G0008 03/02/2012 FLULAVAL VACC, 3 YRS & >, IM CPT-4: Q2036 03/02/2012 PRESCRIP TRANSMIT VIA ERX SY CPT-4: G8553 02/15/2012 TRIAMCINOLONE ACET INJ NOS CPT-4: J3301 01/13/2012 VITAMIN B12 INJECTION CPT-4: J3420 12/21/2011 VITAMIN B12 INJECTION CPT-4: J3420 10/30/2011 THER/PROPH/DIAG INJ SC/IM CPT-4: 33178 10/30/2011 THER/PROPH/DIAG INJ SC/IM CPT-4: 02121 10/02/2011 VITAMIN B12 INJECTION CPT-4: J3420 10/02/2011 TRIAMCINOLONE ACET INJ NOS CPT-4: J3301 10/02/2011 PRESCRIP TRANSMIT VIA ERX SY CPT-4: G8553 10/02/2011 VITAMIN B12 INJECTION CPT-4: J3420 09/01/2011 URINALYSIS NONAUTO W/O SCOPE CPT-4: 55545 08/03/2011 VITAMIN B12 INJECTION CPT-4: J3420 08/03/2011 THER/PROPH/DIAG INJ SC/IM CPT-4: 07446 08/03/2011 THER/PROPH/DIAG INJ SC/IM CPT-4: 51795 06/11/2011 VITAMIN B12 INJECTION CPT-4: J3420 06/11/2011 ROUTINE VENIPUNCTURE CPT-4: 60154 06/11/2011 THER/PROPH/DIAG INJ SC/IM CPT-4: 51026 02/23/2011 VITAMIN B12 INJECTION CPT-4: [id number] 02/23/2011 ADMIN INFLU[facility]ZA VIRUS VAC CPT-4: G0008 02/23/2011 FLULAVAL VACC, 3 YRS & >, IM CPT-4: Q2036 02/23/2011 Vital Signs Date Vital 04/05/2018 Blood Pressure 1: 144/80 Code : 8480-6 BMI: 30.9 Code : 56810-2 Heart Rate 1 : 118 bpm Height: 5'9" SpO2: 98% Weight: 209 lbs 03/10/2018 Blood Pressure 1: 128/82 Code : 8480-6 Blood Pressure 1: 162/74 Code: 8480-6 BMI: 30.3 Code: 79756-7 Heart Rate 1: 101 bpm Height: 5'9" SpO2: 98% Weight: 205 lbs 01/13/2018 Blood Pressure 1: 102/78 Code : 8480-6 BMI: 31.6 Code : 08630-4 Heart Rate 1 : 103 bpm Height: 5'9" SpO2: 98% Weight: 214 lbs 11/25/2017 Blood Pressure 1: 114/80 Code : 8480-6 BMI: 30.3 Code : 96383-5 Heart Rate 1 : 112 bpm Height: 5'9" SpO2: 98% Weight: 205 lbs 10/19/2017 Blood Pressure 1: 110/70 Code : 8480-6 BMI: 30.7 Code : 58442-8 Heart Rate 1 : 102 bpm Height: 5'9" SpO2: 97% Weight: 208 lbs 09/17/2017 Blood Pressure 1: 132/78 Code : 8480-6 BMI: 30.4 Code : 87629-6 Heart Rate 1 : 117 bpm Height: 5'9" SpO2: 97% Weight: 206 lbs 09/06/2017 Blood Pressure 1: 110/78 Code : 8480-6 BMI: 29.8 Code : 40949-2 Heart Rate 1 : 106 bpm Height: 5'9" SpO2: 97% Weight: 202 lbs 08/19/2017 Blood Pressure 1: 136/72 Code : 8480-6 BMI: 30.4 Code : 93287-7 Heart Rate 1 : 108 bpm Height: 5'9" SpO2: 94% Weight: 206 lbs 07/06/2017 Blood Pressure 1: 154/80 Code : 8480-6 Heart Rate 1: 111 bpm Height: 5'9" Respiratory Rate: 20 bpm SpO2: 98% Weight: 04/27/2017 Blood Pressure 1: 138/78 Code : 8480-6 BMI: 30.4 Code : 23268-5 Heart Rate 1 : 96 bpm Height: 5'9" SpO2: 97% Weight: 206 lbs 04/06/2017 Blood Pressure 1: 108/80 Code : 8480-6 BMI: 31.0 Code : 47237-9 Heart Rate 1 : 96 bpm Height: 5'9" SpO2: 98% Weight: 210 lbs 02/25/2017 Blood Pressure 1: 132/80 Code : 8480-6 BMI: 32.5 Code : 55790-8 Heart Rate 1 : 112 bpm Height: 5'9" SpO2: 94% Weight: 220 lbs 01/19/2017 Blood Pressure 1: 122/68 Code : 8480-6 Heart Rate 1: 100 bpm Height: 5'9" SpO2: 95% Weight: 11/17/2016 Blood Pressure 1: 132/74 Code : 8480-6 BMI: 32.2 Code : 30520-6 Heart Rate 1 : 98 bpm Height: 5'9" SpO2: 94% Weight: 218 lbs 10/12/2016 Blood Pressure 1: 130/82 Code : 8480-6 BMI: 32.2 Code : 07540-6 Heart Rate 1 : 97 bpm Height: 5'9" SpO2: 94% Weight: 218 lbs 08/18/2016 Blood Pressure 1: 132/78 Code : 8480-6 BMI: 32.0 Code : 92188-4 Heart Rate 1 : 113 bpm Height: 5'9" SpO2: 98% Weight: 217 lbs 08/07/2016 Blood Pressure 1: 126/70 Code : 8480-6 BMI: 33.1 Code : 98734-0 Heart Rate 1 : 102 bpm Height: 5'9" SpO2: 94% Weight: 224 lbs 07/31/2016 Blood Pressure 1: 134/66 Code : 8480-6 BMI: 31.7 Code : 83590-4 Heart Rate 1 : 97 bpm Height: 5'9" SpO2: 95% Temperature: 36.4 (C) / 97.6 (F) Weight: 215 lbs 07/15/2016 Blood Pressure 1: 126/62 Code : 8480-6 Heart Rate 1: 105 bpm Height: 5'9" Weight: 07/07/2016 Blood Pressure 1: 106/54 Code : 8480-6 BMI: 31.7 Code : 08979-3 Heart Rate 1 : 93 bpm Height: 5'9" SpO2: 97% Weight: 215 lbs 06/25/2016 Heart Rate 1: 99 bpm Height: 5'9" SpO2: 95% Weight: 05/07/2016 Blood Pressure 1: 124/86 Code : 8480-6 BMI: 28.5 Code : 75273-7 Heart Rate 1 : 100 bpm Height: 5'9" SpO2: 96% Weight: 193 lbs 04/20/2016 Blood Pressure 1: 120/80 Code : 8480-6 BMI: 28.5 Code : 88347-4 Heart Rate 1 : 86 bpm Height: 5'9" SpO2: 96% Weight: 193 lbs 03/17/2016 Blood Pressure 1: 120/70 Code : 8480-6 BMI: 29.1 Code : 27759-0 Heart Rate 1 : 103 bpm Height: 5'9" SpO2: 96% Weight: 197 lbs 03/05/2016 Blood Pressure 1: 124/78 Code : 8480-6 Heart Rate 1: 82 bpm Height: 5'9" SpO2: 94% Weight: 02/28/2016 Blood Pressure 1: 94/50 Code : 8480-6 Heart Rate 1: 91 bpm Height: 5'9" SpO2: 94% Weight: 02/13/2016 Blood Pressure 1: 128/86 Code : 8480-6 BMI: 28.6 Code : 28864-9 Heart Rate 1 : 100 bpm Height: 5'9" SpO2: 96% Weight: 194 lbs 08/15/2015 Blood Pressure 1: 128/68 Code : 8480-6 BMI: 27.3 Code : 50343-5 Heart Rate 1 : 72 bpm Height: 5'9" SpO2: 92% Weight: 185 lbs 07/25/2015 Blood Pressure 1: 122/76 Code : 8480-6 BMI: 27.5 Code : 45135-3 Heart Rate 1 : 70 bpm Height: 5'9" SpO2: 94% Weight: 186 lbs 06/25/2015 Blood Pressure 1: 118/54 Code : 8480-6 BMI: 26.7 Code : 41404-9 Heart Rate 1 : 98 bpm Height: 5'9" SpO2: 97% Weight: 181 lbs 06/10/2015 Blood Pressure 1: 110/68 Code : 8480-6 Heart Rate 1: 80 bpm Height: SpO2: 98% Weight: 05/08/2015 Blood Pressure 1: 120/68 Code : 8480-6 BMI: 27.5 Code : 26225-7 Heart Rate 1 : 95 bpm Height: 5'9" SpO2: 96% Weight: 186 lbs 03/26/2015 Blood Pressure 1: 120/80 Code : 8480-6 Heart Rate 1: 102 bpm Respiratory Rate: 18 bpm SpO2: 92% Weight: 186 lbs 03/15/2015 Blood Pressure 1: 122/64 Code : 8480-6 BMI: 26.6 Code : 61343-3 Heart Rate 1 : 96 bpm Height: 5'9" SpO2: 96% Weight: 180 lbs 01/10/2015 Blood Pressure 1: 120/68 Code : 8480-6 BMI: 27.5 Code : 72268-8 Heart Rate 1 : 90 bpm Height: 5'9" Weight: 186 lbs 12/21/2014 Blood Pressure 1: 118/78 Code : 8480-6 BMI: 27.2 Code : 63838-5 Heart Rate 1 : 61 bpm Height: 5'9" SpO2: 97% Weight: 184 lbs 10/05/2014 Blood Pressure 1: 118/64 Code : 8480-6 BMI: 27.0 Code : 94371-1 Heart Rate 1 : 76 bpm Height: 5'9" Weight: 183 lbs 06/14/2014 Blood Pressure 1: 120/78 Code : 8480-6 BMI: 26.6 Code : 15117-4 Heart Rate 1 : 96 bpm Height: 5'9" Weight: 180 lbs 01/19/2014 Blood Pressure 1: 128/76 Code : 8480-6 BMI: 27.3 Code : 31382-6 Heart Rate 1 : 82 bpm Height: 5'9" Weight: 185 lbs 01/15/2014 Blood Pressure 1: 110/62 Code : 8480-6 BMI: 27.9 Code : 19571-4 Heart Rate 1 : 80 bpm Height: 5'9" Weight: 189 lbs 10/20/2013 Blood Pressure 1: 112/62 Code : 8480-6 BMI: 30.1 Code : 04069-7 Heart Rate 1 : 76 bpm Height: [...] Code : 8480-6 BMI: 30.6 Code : 96119-7 Heart Rate 1 : 92 bpm Height: 5'9" Weight: 207 lbs 05/23/2013 Blood Pressure 1: 120/78 Code : 8480-6 Heart Rate 1: 84 bpm Weight: 05/19/2013 Blood Pressure 1: 126/78 Code : 8480-6 BMI: 30.3 Code : 07050-6 Heart Rate 1 : 88 bpm Height: 5'9" Weight: 205 lbs 05/16/2013 Blood Pressure 1: 126/66 Code : 8480-6 BMI: 30.3 Code : 61635-7 Heart Rate 1 : 84 bpm Height: 5'9" Weight: 205 lbs 03/06/2013 Blood Pressure 1: 128/76 Code : 8480-6 BMI: 30.6 Code : 50329-3 Heart Rate 1 : 88 bpm Height: 5'9" Weight: 207 lbs 12/26/2012 Blood Pressure 1: 142/70 Code : 8480-6 BMI: 29.6 Code : 23586-4 Heart Rate 1 : 100 bpm Height: 5'9" Weight: 200 lbs 8 oz 11/21/2012 Blood Pressure 1: 132/80 Code : 8480-6 BMI: 29.5 Code : 17584-9 Heart Rate 1 : 96 bpm Height: [...] Code : 8480-6 BMI: 29.2 Code : 97375-8 Heart Rate 1 : 64 bpm Height: 5'9" Respiratory Rate: 16 bpm Weight: 198 lbs 03/11/2011 Blood Pressure 1: 106/60 Code : 8480-6 BMI: 28.8 Code : 82914-7 Heart Rate 1 : 100 bpm Height: 5'9" SpO2: 97% Weight: 195 lbs 02/12/2011 Weight: 192 lbs 01/29/2011 Blood Pressure 1: 100/64 Code : 8480-6 BMI: 28.1 Code : 94271-5 Heart Rate 1 : 100 bpm Height: [...] Hospital Follow Up _ pain 05/16/2013 left [id number] to left knee-applying neosporin and covering with [...] to have a study done at [facility] [id number] shortness of breath Triggers exertion 03/11/2011 None [...] 02/12/2011 and pt went to her chiropractor/ helmet hat puncher this week and was" worked on" and she has been feeling better shortness of breath Alleviating Factors rest 02/12/2011 pt states that her shortness of breath got better after her helmet hat puncher adjusted her pelvis gastroesophageal reflux Quality heartburn [...] Performer Location Codes Date EST. PATIENT, LEVEL IV Diagnosis: Essential (primary) hypertension[ICD10: I10] Diagnosis: Chronic pain syndrome[ICD10: G89.4] Diagnosis: Vitamin B12 deficiency anemia due to intrinsic factor deficiency[ ICD10: D51.0] [facility] CPT-4: 46882 04/05/2018 ([id number]) 04032 EST. PATIENT, LEVEL IV Diagnosis: Essential (primary) hypertension[ICD10: I10] Diagnosis: Generalized anxiety disorder[ICD10: F41.1] Diagnosis: Major depressive disorder, recurrent, mild[ICD10: F33.0] Diagnosis: Vitamin B12 deficiency anemia due to intrinsic factor deficiency[ ICD10: D51.0] [facility] CPT-4: 82527 03/10/2018 [id number]) 90749 EST. PATIENT, LEVEL IV Diagnosis: Headache[ICD10: R51] Diagnosis: Obstructive sleep apnea (adult) (pediatric)[ICD10: G47.33] Diagnosis: Cervicalgia[ICD10: M54.2] Valentina Thompson MD, [facility] CPT-4: 45395 01/13/2018 ([id number]) 89203 EST. PATIENT, LEVEL IV Diagnosis: Headache[ICD10: R51] Diagnosis: Spinal stenosis, cervical region[ICD10: M48.02] Diagnosis: Major depressive disorder, recurrent, mild[ICD10: F33.0] Valentina Thompson MD , [facility] CPT-4: 29675 11/25/2017 ([id number]) 66227 EST. PATIENT, LEVEL III Diagnosis: Allergic contact dermatitis due to plants, except food[ICD10: L23.7] Diagnosis: Vitamin B12 deficiency anemia due to intrinsic factor deficiency[ ICD10: D51.0] Valentina Thompson MD, [facility] CPT-4: 94257 10/19/2017 ([id number]) 87192 EST. PATIENT, LEVEL IV Diagnosis: Generalized abdominal pain[ICD10: R10.84] Diagnosis: Urinary tract infection, site not specified[ICD10: N39.0] Diagnosis: Hypokalemia[ICD10: E87.6] Valentina Thompson MD, [facility] CPT-4: 66478 09/17/2017 ([id number]) 28650 EST. PATIENT, LEVEL IV Diagnosis: Chronic pain syndrome[ICD10: G89.4] Diagnosis: Pain in left knee[ICD10: M25.562] Diagnosis: Pain in right knee[ICD10: M25.561] Diagnosis: Essential (primary) hypertension[ICD10: I10] Aicha Thompson MD, [facility] CPT-4: 26043 09/06/2017 ([id number]) 07264 EST. PATIENT, LEVEL IV Diagnosis: Headache[ICD10: R51] Diagnosis: Chronic pain syndrome[ICD10: G89.4] Diagnosis: Mixed hyperlipidemia[ICD10: E78.2] Diagnosis: Vitamin D deficiency, unspecified[ICD10: E55.9] Diagnosis: Vitamin B12 deficiency anemia, unspecified[ICD10: D51.9] Valentina Thompson MD , [facility] CPT-4: 15236 08/19/2017 51603 EST. PATIENT, LEVEL V Diagnosis: Essential (primary) hypertension[ICD10: I10] Diagnosis: Vitamin B12 deficiency anemia due to intrinsic factor deficiency[ ICD10: D51.0] Diagnosis: Chronic pain syndrome[ICD10: G89.4] Aicha Thompson MD, [facility] CPT-4: 59706 07/06/2017 ([id number]) 81135 EST. PATIENT, LEVEL IV Diagnosis: Cervicalgia[ICD10: M54.2] Diagnosis: Laceration without foreign body of scalp, initial encounter[ICD10: S01.01XA] Diagnosis: Vitamin B12 deficiency anemia due to intrinsic factor deficiency[ ICD10: D51.0] Valentina Thompson MD, [facility] CPT-4: 18118 04/27/2017 07893 EST. PATIENT, LEVEL II Diagnosis: Residual hemorrhoidal skin tags[ICD10: K64.4] Valentina Thompson MD, [facility] CPT-4: 08710 04/06/2017 ([id number]) 77243 EST. PATIENT, LEVEL III Diagnosis: Pain in right foot[ICD10: M79.671] Diagnosis: Pain in left foot[ICD10: M79.672] Diagnosis: Cervicalgia[ICD10: M54.2] Valentina Thompson MD, [facility] CPT-4: 53999 02/25/2017 ([id number]) 49418 EST. PATIENT, LEVEL IV Diagnosis: Essential (primary) hypertension[ICD10: I10] Diagnosis: Chronic pain syndrome[ICD10: G89.4] Diagnosis: Spinal stenosis, cervical region[ICD10: M48.02] Diagnosis: Pain in right leg[ICD10: M79.604] Valentina Thompson MD, [facility] CPT-4: 23029 01/19/2017 ([id number]) 09581 EST. PATIENT, LEVEL III Diagnosis: Pain in right foot[ICD10: M79.671] Diagnosis: Pain in left foot[ICD10: M79.672] Diagnosis: Chronic pain syndrome[ICD10: G89.4] Diagnosis: Vitamin B12 deficiency anemia, unspecified[ICD10: D51.9] Valentina Thompson MD , [facility] CPT-4: 53055 11/17/2016 ([id number]) 85149 EST. PATIENT, LEVEL IV Diagnosis: Essential (primary) hypertension[ICD10: I10] Diagnosis: Chronic pain syndrome[ICD10: G89.4] Diagnosis: Foot drop, right foot[ICD10: M21.371] Diagnosis: Foot drop, left foot[ICD10: M21.372] Diagnosis: Other abnormalities of gait and mobility[ICD10: R26.89] Diagnosis: Vitamin B12 deficiency anemia due to intrinsic factor deficiency[ ICD10: D51.0] Aicha Thompson MD, [facility] CPT-4: 08239 10/12/2016 ([id number]) 66818 EST. PATIENT, LEVEL III Diagnosis: Pain in right ankle and joints of right foot[ICD10: M25.571] Diagnosis: Superficial foreign body, right foot, initial encounter[ICD10: S90.851A] Valentina Thompson MD, [facility] CPT-4: 06642 ([id number]) 11401 EST. PATIENT, LEVEL III Diagnosis: Candidiasis of vulva and vagina[ICD10: B37.3] Diagnosis: Vitamin B12 deficiency anemia, unspecified[ICD10: D51.9] Valentina Thompson MD , [facility] CPT-4: 31558 08/07/2016 ([id number]) 37094 EST. PATIENT, LEVEL III Diagnosis: Spinal stenosis, cervical region[ICD10: M48.02] Diagnosis: Pain in right ankle and joints of right foot[ICD10: M25.571] Diagnosis: Pain in left ankle and joints of left foot[ICD10: M25.572] Valentina Thompson MD, [facility] CPT-4: 81555 07/31/2016 54530 EST. PATIENT, LEVEL III Diagnosis: Cervicalgia[ICD10: M54.2] Diagnosis: Chronic pain syndrome[ICD10: G89.4] Beatriz Thompson MD, [facility] CPT-4: 89904 07/15/2016 ([id number]) 55187 EST. PATIENT, LEVEL III Diagnosis: Spinal stenosis, cervical region[ICD10: M48.02] Diagnosis: Low back pain[ICD10: M54.5] Valentina Thompson MD, [facility] CPT-4: 08199 07/07/2016 ([id number]) 64867 EST. PATIENT, LEVEL IV Diagnosis: Cervicalgia[ICD10: M54.2] Diagnosis: Essential (primary) hypertension[ICD10: I10] Diagnosis: Mixed hyperlipidemia[ICD10: E78.2] Aicha Thompson MD, [facility] CPT-4: 38382 06/25/2016 ([id number]) 07367 EST. PATIENT, LEVEL III Diagnosis: Cervicalgia[ICD10: M54.2] Valentina Thompson MD, [facility] CPT-4: 12560 05/07/2016 ([id number]) 49999 EST. PATIENT, LEVEL III Diagnosis: Pleurodynia[ICD10: R07.81] Diagnosis: Generalized anxiety disorder[ICD10: F41.1] Diagnosis: Vitamin B12 deficiency anemia due to intrinsic factor deficiency[ ICD10: D51.0] Diagnosis: Hypoxemia[ICD10: R09.02] Valentina Thompson MD, [facility] CPT-4: 74428 04/20/2016 ([id number]) 36315 EST. PATIENT, LEVEL III Diagnosis: Generalized anxiety disorder[ICD10: F41.1] Diagnosis: Radiculopathy, lumbar region[ICD10: M54.16] Valentina Thompson MD, [facility] CPT-4: 30665 03/17/2016 26643 EST. PATIENT, LEVEL IV Diagnosis: Chronic pain syndrome[ICD10: G89.4] Diagnosis: Radiculopathy, lumbar region[ICD10: M54.16] Diagnosis: Generalized anxiety disorder[ICD10: F41.1] Beatriz Thompson MD, [facility] CPT-4: 31332 03/05/2016 [id number]) 00246 EST. PATIENT, LEVEL III Diagnosis: Radiculopathy, lumbar region[ICD10: M54.16] Diagnosis: Generalized anxiety disorder[ICD10: F41.1] Valentina Thompson MD, [facility] CPT-4: 01851 02/28/2016 [id number]) 69055 EST. 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 PATIENT, LEVEL III Diagnosis: Headache[ICD10: R51] Diagnosis: Cervicalgia[ICD10: M54.2] Valentina Thompson MD, [facility] CPT-4: 02504 08/15/2015 ([id number]) 54851 EST. PATIENT, LEVEL III Diagnosis: Generalized anxiety disorder[ICD10: F41.1] Diagnosis: Cervicalgia[ICD10: M54.2] Valentina Thompson MD, [facility] CPT-4: 78252 07/25/2015 ([id number]) 79632 EST. PATIENT, LEVEL IV Diagnosis: Pain in right foot[ICD10: M79.671] Diagnosis: Unspecified osteoarthritis, unspecified site[ICD10: M19.90] Diagnosis: Pain in left ankle and joints of left foot[ICD10: M25.572] Diagnosis: Pain in right ankle and joints of right foot[ICD10: M25.571] Valentina Thompson MD, [facility] CPT-4: 42974 06/25/2015 ([id number]) 08673 EST. 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 PATIENT, LEVEL IV Diagnosis: Essential (primary) hypertension[ICD10: I10] Diagnosis: Pain in right foot[ICD10: M79.671] Diagnosis: Pain in left foot[ICD10: M79.672] Diagnosis: Anxiety disorder, unspecified[ICD10: F41.9] Aicha Thompson MD, [facility] CPT-4: 15732 05/08/2015 ([id number]) 73292 EST. PATIENT, LEVEL III Diagnosis: Generalized anxiety disorder[ICD10: F41.1] Diagnosis: Essential (primary) hypertension[ICD10: I10] Diagnosis: Other myositis, multiple sites[ICD10: M60.89] Valentina Thompson MD, [facility] CPT-4: 30240 03/26/2015 62189 EST. PATIENT, LEVEL III Diagnosis: Chronic pain syndrome[ICD10: G89.4] Diagnosis: Unspecified osteoarthritis, unspecified site[ICD10: M19.90] Diagnosis: Pain in right foot[ICD10: M79.671] Diagnosis: Pain in left foot[ICD10: M79.672] Beatriz Thompson MD, [facility] CPT -4: 87528 03/15/2015 ([id number]) 90007 EST. PATIENT, LEVEL III Diagnosis: Abrasion of knee, left[ICD9: 916.0] Valentina Thompson MD, [facility] CPT-4: 34188 01/10/2015 ([id number]) 15912 EST. PATIENT, LEVEL IV Diagnosis: CHRONIC PAIN SYNDROME[ICD9: 338.4] Diagnosis: MYALGIA AND MYOSITIS[ICD9: 729.1] Diagnosis: OSTEOARTH NOS-UNSPEC[ICD9: 715.90] Diagnosis: DEPRESSIVE DISORDER NEC[ICD9: 311] Diagnosis: GENERALIZED ANXIETY DISEASE[ICD9: 300.02] Valentina Thompson MD, [facility] CPT-4: 17057 12/21/2014 ([id number]) 71553 EST. PATIENT, LEVEL IV Diagnosis: GENERALIZED ANXIETY DISEASE[ICD9: 300.02] Diagnosis: DEPRESSIVE DISORDER NEC[ICD9: 311] Diagnosis: ESSENTIAL HYPERTENSION[ICD9: 401.9] Valentina Thompson MD, [facility] CPT-4: 56657 10/05/2014 ([id number]) 76820 EST. PATIENT, LEVEL III Diagnosis: Knee pain, right[ICD9: 719.46] Diagnosis: CHRONIC PAIN SYNDROME[ICD9: 338.4] Diagnosis: Ankle pain[ICD9: 719.47] Aicha Thompson MD, [facility] CPT-4: 76116 06/14/2014 ([id number]) 21042 EST. PATIENT, LEVEL III Diagnosis: Constipation[ICD9: 564.00] Diagnosis: Hemorrhoids[ICD9: 455.6] Valentina Thompson MD, [facility] CPT-4: 96809 01/19/2014 ([id number]) 25918 EST. PATIENT, LEVEL III Diagnosis: Ulcer of knee[ICD9: 707.19] Diagnosis: Hemorrhoids[ICD9: 455.6] Diagnosis: B12 deficiency[ICD9: 266.2] Diagnosis: ALLERGIC RHINITIS[ICD9: 477.9] Valentina Thompson MD, [facility] CPT-4: 18090 01/15/2014 ([id number]) 39243 EST. PATIENT, LEVEL IV Diagnosis: EDEMA[ICD9: 782.3] Diagnosis: Open wound of knee[ICD9: 891.0] Diagnosis: CHRONIC PAIN SYNDROME[ICD9: 338.4] Diagnosis: ANEMIA[ICD9: 285.9] Valentina Thompson MD, [facility] CPT-4: 74168 10/20/2013 ([id number]) 79716 EST. PATIENT, LEVEL III Diagnosis: ULCER OTH PART LOW LIMB[ICD9: 707.19] Valentina Thompson MD, [facility] CPT-4: 47832 07/24/2013 ([id number]) 06513 EST. PATIENT, LEVEL III Diagnosis: ULCER OTH PART LOW LIMB[ICD9: 707.19] Valentina Thompson MD, [facility] CPT-4: 55268 06/23/2013 ([id number]) 63245 EST. PATIENT, LEVEL III Diagnosis: ULCER OTH PART LOW LIMB[ICD9: 707.19] Valentina Thompson MD, [facility] CPT-4: 10634 06/12/2013 ([id number]) Miscellaneous no charge Diagnosis: ULCER OTH PART LOW LIMB[ICD9: 707.19] Valentina Thomspon MD, [facility] CPT-4: 46639 05/29/2013 ([id number]) 43945 EST. PATIENT, LEVEL III Diagnosis: ULCER OTH PART LOW LIMB[ICD9: 707.19] Valentina Thompson MD, [facility] CPT-4: 75374 05/23/2013 ([id number]) Miscellaneous no charge Diagnosis: ULCER OTH PART LOW LIMB[ICD9: 707.19] Valentina Thompson MD [facility] CPT-4: 32353 05/19/2013 ([id number]) 09091 EST. PATIENT, LEVEL III Diagnosis: Ulcer of knee[ICD9: 707.19] Valentina Thompson MD, [facility] CPT-4: 29829 05/16/2013 ([id number]) 72207 EST. PATIENT, LEVEL III Diagnosis: ALLERGIC RHINITIS[ICD9: 477.9] Aicha Thompson MD [facility] CPT- 4: 82246 03/06/2013 ([id number]) 51296 EST. PATIENT, LEVEL IV Diagnosis: Ankle pain[ICD9: 719.47] Diagnosis: ALLERGIC RHINITIS[ICD9: 477.9] Diagnosis: ESSENTIAL HYPERTENSION[SNOMED: 57263665] Aicha Thompson MD, [facility] CPT-4: 96168 12/26/2012 ([id number]) 87902 EST. PATIENT, LEVEL IV Diagnosis: ESSENTIAL HYPERTENSION[SNOMED: 07324673] Diagnosis: JOINT PAIN-L/LEG[ICD9: 719.46] Diagnosis: GENERALIZED ANXIETY DISEASE[ICD9: 300.02] Diagnosis: UNSPECIFIED ASTHMA[ICD9: 493.90] Aicha Thompson MD [facility] CPT-4: 99029 11/21/2012 ([id number]) Miscellaneous no charge Diagnosis: Encounter for tuberculin skin test[ICD9: V74.1] Aicha Thompson MD, [facility] CPT-4: 89994 09/28/2012 ([id number]) 83448 EST. PATIENT, LEVEL IV Diagnosis: FEVER NOS[ICD9: 780.60] Diagnosis: PNEUMONIA (CAP)[ICD9: 486] Aicha Thompson MD, [facility] CPT- 4: 69280 07/21/2012 ([id number]) 80668 EST. PATIENT, LEVEL IV Diagnosis: JOINT PAIN-ANKLE[ICD9: 719.47] Diagnosis: MUSCLE/LIGAMENT DIS NEC[ICD9: 728.89] Diagnosis: Fibromyalgia muscle pain[ICD9: 729.1] Aicha Thompson MD, [facility] CPT-4: 95811 07/13/2012 ([id number]) 83372 EST. PATIENT, LEVEL IV Diagnosis: Right foot pain[ICD9: 729.5] Diagnosis: Plantar fasciitis[ICD9: 728.71] Diagnosis: GENERALIZED ANXIETY DISEASE[ICD9: 300.02] Diagnosis: B-COMPLEX DEFIC NEC[ICD9: 266.2] Aicha Thompson MD, [facility] CPT-4: 10282 05/26/2012 ([id number]) 82690 EST. PATIENT, LEVEL IV Diagnosis: Chest wall pain[ICD9: 786.52] Diagnosis: Esophageal reflux[ICD9: 530.81] Diagnosis: ALLERGIC RHINITIS[ICD9: 477.9] Valentina Thompson MD, [facility] CPT-4: 52970 02/15/2012 ([id number]) 45128 EST. PATIENT, LEVEL IV Diagnosis: ALLERGIC RHINITIS[ICD9: 477.9] Diagnosis: HYPERLIPIDEMIA[ICD9: 272.4] Aicha Thompson MD, [facility] CPT- 4: 51301 01/13/2012 ([id number]) 08854 EST. PATIENT, LEVEL IV Diagnosis: JOINT PAIN-L/LEG[ICD9: 719.46] Diagnosis: UNSPECIFIED ASTHMA[ICD9: 493.90] Diagnosis: Costalchondritis[ICD9: 733.6] Aicha Thompson MD, [facility] CPT- 4: 34338 12/21/2011 ([id number]) 09516 EST. PATIENT, LEVEL IV Diagnosis: Hyperlipidemia[ICD9: 272.4] Diagnosis: ALLERGIC RHINITIS[ICD9: 477.9] Diagnosis: B12 deficiency[ICD9: 266.2] Diagnosis: Hypopotassemia[ICD9: 276.8] Valentina Thompson MD, [facility] CPT-4: 36087 10/02/2011 ([id number]) 98764 EST. PATIENT, LEVEL IV Diagnosis: Pain in joint involving forearm[ICD9: 719.43] Diagnosis: Neck pain[ICD9: 723.1] Diagnosis: Fall on same level from slipping, tripping, or stumbling[ICD9: E885.9 ] Diagnosis: B12 deficiency[ICD9: 266.2] Aicha Thompson MD, [facility] CPT- 4: 57622 09/01/2011 ([id number]) 70586 EST. PATIENT, LEVEL IV Diagnosis: Vulvovaginitis[ICD9: 616.10] Diagnosis: OVERWEIGHT[ICD9: 278.02] Diagnosis: MYALGIA AND MYOSITIS[ICD9: 729.1] Aicha Thompson MD, [facility] CPT-4: 46006 08/03/2011 ([id number]) 28526 EST. PATIENT, LEVEL IV Diagnosis: MUSCLE/LIGAMENT DIS NEC[ICD9: 728.89] Diagnosis: CHRONIC PAIN SYNDROME[ICD9: 338.4] Diagnosis: Weight gain[ICD9: 783.1] Aicha Thompson MD, [facility] CPT-4: 90047 06/29/2011 [id number] EST. PATIENT, LEVEL IV Diagnosis: Wrist pain[ICD9: 719.43] Diagnosis: Knee pain, right[ICD9: 719.46] Diagnosis: Fall on same level from slipping, tripping, or stumbling[ICD9: E885.9 ] Aicha Thompson MD, [facility] CPT-4: 45413 06/22/2011 [id number] EST. PATIENT, LEVEL IV Diagnosis: MUSCLE/LIGAMENT DIS NEC[ICD9: 728.89] Diagnosis: JOINT PAIN-L/LEG[ICD9: 719.46] Diagnosis: OSTEOARTH NOS-UNSPEC[ICD9: 715.90] Diagnosis: B12 deficiency[ICD9: 266.2] [facility] CPT- 4: 17395 06/11/2011 [id number] EST. 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 PATIENT, LEVEL IV Diagnosis: Knee pain, bilateral[ICD9: 719.46] Diagnosis: Iliotibial band syndrome[ICD9: 728.89] Diagnosis: Fibromyalgia syndrome[ICD9: 729.1] [facility] CPT-4: 25747 02/12/2011 02356 EST. PATIENT, LEVEL IV Diagnosis: FALL FROM SLIPPING[ICD9: E885.9] Diagnosis: Pain in joint involving lower leg[ICD9: 719.46] Diagnosis: ESOPHAGEAL REFLUX[ICD9: 530.81] Diagnosis: ESSENTIAL HYPERTENSION[SNOMED: 35746109] [facility] CPT-4: 91240 01/29/2011 Plan of Care Planned Activity Notes [...] hydrocodone. 04/05/2018 Appointment: Aicha Thompson WPtel: 1015 [facility] (30 min) Complex 04/05/2018 Patient Education: Patient Medication Summary Completed 04/05/2018 Appointment: Aicha Thompson WPtel: [facility]5 [facility] (15 min) Moderate 03/17/2018 Visit Plan: Hypertension [...] 2 weeks 03/10/2018 Appointment: Valentina Smith WPtel: [facility]5 [id number] [place] (15 min) Moderate 03/10/2018 Appointment: Aicha Thompson WPtel: [facility]5 [facility] (15 min) Moderate 03/10/2018 Patient Education: Patient [...] appt scheduled 01/13/2018 Appointment: Valentina Smith WPtel: [facility]5 [phone] (15 min) Moderate 01/13/2018 Patient Education: Patient [...] current medications. 11/25/2017 Appointment: Valentina Smith WPtel: [address] [place], [place] [phone] (30 min) Complex 11/25/2017 Patient Education: Patient Medication Summary Completed 11/25/2017 Visit Plan: Contact dermatitis-discussed natural and expected course of this diagnosis and to alert me if symptoms do not resolve or if any worse. RX sent to patient's pharmacy and instructed on use. 10/19/2017 Appointment: Valentina Smith WPtel: [address] [place], [place] [phone] (15 min) Moderate 10/19/2017 Patient Education: Patient Medication Summary Completed 10/19/2017 Appointment: Valentina Smith WPtel: [address] [place], [place] [phone] (30 min) Complex 09/27/2017 Visit Plan: Generalized abd ixgt-NZV-bbzphm cipro/flagyl- culture urine-recommend patient follow up with Dr Grace for an appt if abdominal pain does not improve Low potassium-check labs 09/17/2017 Visit Plan: Generalized abd kmdr-CDM-fvpjbv cipro/flagyl- culture urine-recommend patient follow up with Dr Grace for an appt if abdominal pain does not improve Low potassium-check labs 09/17/2017 Appointment: Valentina Smith WPtel: [address] [place], [place] [phone] [place] (30 min) Complex 09/17/2017 Patient Education: [...] of over-medication. 09/06/2017 Appointment: Aicha Thompson WPtel: 1015 [facility] [place] (30 min) Complex 09/06/2017 Patient Education: Patient Medication Summary Completed 09/06/2017 Appointment: Aicha Thompson WPtel: [phone] [facility] (30 min) Complex 09/02/2017 Appointment: Aicha Thompson WPtel: 1015 [facility] (30 min) Complex 08/23/2017 Visit Plan: Headaches-neck pain-patient is to let us know which neurologist she wants to see B12 def-injection today in the office Hyperlipidemia-check labs Vitamin D def-check level 08/19/2017 Appointment: Valentina Smith WPtel: [phone] [phone] [place] (30 min) Complex 08/19/2017 Patient Education: [...] her psychiatric provider. I have also advised Racieldeanna that I would look over the list of the neurologists that her real estate office supervisor has recommended and we would consider [...] the list of the neurologists that her real estate office supervisor has recommended and we would consider [...] psychiatrist. 07/06/2017 [facility]ment[facility] ([facility] 07/06/2017 Patient Education: Patient Medication Summary Completed 07/06/2017 App[facility]ment: [facility] [place] (30 min) Complex 07/05/2017 Appointment: Valentina Smith WPtel: [facility]5 [phone] [place] (30 min) Complex 05/17/2017 Appointment: [phone] [place] (30 min) Complex 05/14/2017 Visit Plan: Neck ygxh-lqkfivg-dkdsccr to continue f/u with [facility]-her symptoms have [...] plan. 04/27/2017 Appointment: Valentina Smith WPtel: [facility] [place] (30 min) Complex 04/27/2017 Patient Education: Patient Medication Summary Completed 04/27/2017 Patient Education: Obesity Completed 04/27/2017 Visit Plan: Hemorrhoidal skin tag-no acute inflammation today -may use hemorrhoid cream as directed as needed-call with any concerns, bleeding, etc. 04/06/2017 Appointment: Valentina Smith WPtel: [address] [place], [place] [phone] (30 min) Complex 04/06/2017 Patient Education: Patient Medication Summary Completed 04/06/2017 Patient Education: Obesity Completed 04/06/2017 Visit Plan: Bilateral foot and ankle pain-now has AFOs-we have made her several appt with podiatrists which she has not kept-recommend patient call Dr Saunders and reschedule appt with him. Neck pain-[facility] appt next week-KEEP APPOINTMENT! 02/25/2017 Appointment: Valentina Smith WPtel: [address] [place], [place] [phone] (30 min) Complex 02/25/2017 Patient Education: Patient [...] podiatry for evaluation-wants to see someone in [place] 11/17/2016 Appointment: Valentina Smith WPtel: [address] [place], [place] [phone] (30 min) Complex 11/17/2016 Patient Education: Patient Medication Summary Completed 11/17/2016 Appointment: Valentina Smith WPtel: [address] [place], [place] [phone] (30 min) Complex 11/16/2016 Visit Plan: [place] referral - pt to indicate when and who she would like to go to - for neck and back AFO for both legs - [facility] in [place]- fax #[phone] pt has been seen by retina subspecialist - need brace because of bilateral drop [...] medication. 10/12/2016 Appointment: Aicha Thompson WPtel: [facility] (30 min) Complex 10/12/2016 Patient Education: Patient Medication Summary Completed 10/12/2016 Patient Education: Obesity Completed 10/12/2016 Appointment: Injection 09/11/2016 Patient Education: Patient Medication Summary Completed 09/11/2016 Visit Plan: Right ankle pain/instability-xray negative- will obtain MRI ankle Ulcer right foot-instructed patient on wound care and the importance of keeping wound clean-f/u in 10-14 days for re-evaluation 08/18/2016 Appointment: Valentina Smith WPtel: [facility] [place] (30 min) Complex 08/18/2016 Patient Education: Patient Medication Summary Completed 08/18/2016 Patient Education: Obesity Completed 08/18/2016 Care Plan: X-RAY EXAM NECK SPINE 2-3 VW LOINC : 09077-1 Pending 08/15/2016 Visit Plan: Vaginal yeast infection-RX for diflucan B12 deficiency-check labs 08/07/2016 Appointment: [facility] Smith WPtel: [facility] (30 min) Complex 08/07/2016 Patient Education: Patient Medication Summary Completed 08/07/2016 Visit Plan: Cervical stenosis-saw Dr Ramey-Dr Ramey is going to send her to for further evaluation Bilateral ankle pain-xray ankles 07/31/2016 Appointment: Valentina Smith WPtel: [facility]5 [phone] (30 min) Complex 07/31/2016 Patient Education: Patient Medication Summary Completed 07/31/2016 Patient Education: Obesity Completed 07/31/2016 Visit Plan: Neck pain after fall - Will check x-ray, Pt is to follow up with Dr. Perez. Pt is to notify clinic if symptoms do not improve , if they worsen, or with any questions or concerns. 07/15/2016 Appointment: Beatriz Mojica WPtel: [phone] [facility] (30 min) Complex 07/15/2016 Patient Education: Patient [...] Injection 07/03/2016 Appointment: Valentina Smith WPtel: [facility]5 [phone] (30 min) Complex 07/03/2016 Patient Education: Patient [...] despite PT. 05/07/2016 Appointment: [facility]Ptel: [phone] (30 min) Complex 05/07/2016 Patient Education: Patient Medication Summary Completed 05/07/2016 Patient Education: Obesity Completed 05/07/2016 Care Plan: MRI NECK SPINE W/O DYE LOINC : 56373-4 Pending 05/07/2016 Visit Plan: Chronic Depression and [...] monitor symptoms 04/20/2016 Appointment: Valentina Smith WPtel: 101 [phone] [place] (30 min) Complex 04/20/2016 Patient Education: Patient Medication Summary Completed 04/20/2016 Appointment: Valentina Smith WPtel: [facility]6 [phone] (30 min) Complex 03/19/2016 Visit Plan: Chronic [...] Ibarra 03/17/2016 Appointment: Valentina Smith WPtel: [id number] [place] (30 min) Complex 03/17/2016 Patient Education: [...] current medications. 02/28/2016 Appointment: Valentina Smith WPtel: [address] [place], [place] [phone] (15 min) Moderate 02/28/2016 Patient Education: Patient Medication Summary Completed 02/28/2016 Appointment: Valentina Smith WPtel: [facility]5 [id number] (30 min) Complex 02/27/2016 Visit Plan: Hypertension [...] level 02/13/2016 Appointment: Valentina Smith WPtel: [phone] (30 min) Complex 02/13/2016 Patient Education: Patient Medication Summary Completed 02/13/2016 Patient Education: Obesity Completed 02/13/2016 Care Plan: Cbc With Differential Pending 02/13/2016 Care Plan: Tsh Pending 02/13/2016 Care Plan: Lipid Pending 02/13/2016 Care Plan: Comp Metabolic patient to come fasting Pending 02/13/2016 Care Plan: Vitamin D 25 Oh Cancelled 02/13/2016 Patient Education: Patient Medication Summary Completed 02/03/2016 Care Plan: SCREENINGMAMMOGRAPHYDIGITAL LOINC : 87945-6 Pending 02/03/2016 Appointment: Injection 01/15/2016 Appointment: Lab [...] Plan: X-RAY EXAM NECK SPINE 2-3 VW [facility] : 49107-4 Ordered 08/15/2015 Visit Plan: Anxiety-fairly well controlled-does [...] feet and ankle instability/pain. [facility]. Patient verbalized understanding of [...] 05/08/2015 Appointment: Aicha Thompson WPtel: [facility] (30 min) Complex 05/08/2015 Patient Education: [...] Care Plan: COMPLETE CBC AUTOMATED LOINC : 03980-4 Ordered 10/05/2014 Visit Plan: Chronic Pain Syndrome - pt has chronic pain - has been maintained on current medications, has not sought out other medications , only uses PRN pain medications as directed, and understands the consequences of over-medication. Right hip/knee/ankle pain-improving since last fall- continue physical therapy exercises-continue supportive shoes and use walker for stability 06/14/2014 Appointment: Valentina Smith WPtel: [address] [place] [address] Follow up 06/14/2014 Patient Education: Patient Medication [...] the instructions given to her from her structural fitter and she is to call him if her constipation is uncontrolled. Hemorrhoids-use suppositories as directed. 01/19/2014 Patient Education: Patient Medication Summary Completed 01/19/2014 Visit Plan: Ulcer of scil-fdyyohh-dxzbq instructions provided today and instructed patient to return as directed-keep wound clean and dry. Hemorrhoids-refill anusol suppositories and use as directed B12 deficiency-b12 injection today in the office Umnhgtoed-qkrrkekbodim-bcvjbdb injection today in the office-continue oral medications [...] Anemia-check labs 10/20/2013 Appointment: Valentina Smith WPtel: [address] [place], [place] [phone] Other 10/20/2013 Patient Education: Patient Medication Summary Completed 10/20/2013 Appointment: Valentina Smith WPtel: [address] [place], [place] [phone] Injection 08/21/2013 Appointment: Aicha Thompson WPtel: [address] [place], [place] [phone] Follow up 07/31/2013 Visit Plan: Ulcer of knee healing-silver nitrate to granulation tissue-instructed patient to monitor and call if it does not completely heal for appointment-instructed on wound care-patient and mother verbalized understanding of plan. 07/24/2013 Patient Education: Patient Medication Summary Completed 07/24/2013 Patient Education: Patient Medication Summary Completed 07/24/2013 Appointment: Valentina Smith WPtel: [address] [place], [place] [phone] Follow up 07/03/2013 Visit Plan: Ulcer-left knee-fibrous tissue removed from wound bed to reveal pink granulation tissue-wound cleansed and dressing applied. Instructed patient on wound care. Return in 10 days for follow up. 06/23/2013 Appointment: Valentina Smith WPtel: [address] [place], [place] [phone] Follow up 06/23/2013 Patient Education: Patient Medication Summary Completed 06/23/2013 Appointment: Valentina Smith WPtel: [address] [place], [place] [phone] Follow up 06/22/2013 Appointment: Aicha Thompson WPtel: [address] [place], [place] [phone] Follow up 06/22/2013 Visit Plan: Ulcer-left knee-fibrous tissue removed from wound bed to reveal pink granulation tissue-wound cleansed and dressing applied. Instructed patient on wound care. Return in 10 days for follow up. 06/12/2013 Appointment: Valentina Smith WPtel: [address] [place], [place] [phone] Follow up 06/12/2013 Patient Education: Patient Medication Summary Completed 06/12/2013 Appointment: Aicha Thompson WPtel: [address] [place], [place] [phone] Follow up 06/08/2013 Visit Plan: Ulcer left xsaz-jaamgdcw-l/u in 10 days 05/29/2013 Appointment: Valentina Smith WPtel: [address] [place], [place] [phone] Follow up 05/29/2013 Patient Education: Patient Medication Summary Completed 05/29/2013 Visit Plan: Ulcer of knee-sharp debridement today in the office--wound care instructions provided for patient-patient and mother verbalized understanding of plan. Follow up next week. 05/23/2013 Appointment: Valentina Smith WPtel: [address] [place], [place] [phone] [place] Follow up 05/23/2013 Patient Education: Patient Medication Summary Completed 05/23/2013 Appointment: Valentina Smith WPtel: [address] [place], [place] [phone] Follow up 05/22/2013 Visit Plan: Ulcer of knee-wound care instructions provided for patient-patient and mother verbalized understanding of plan. 05/19/2013 Appointment: Valentina Smith WPtel: [address] [place], [place] [phone] Other 05/19/2013 Patient Education: Patient Medication Summary Completed 05/19/2013 Visit Plan: Ulcer of knee-fibrous tissue debrided today in the office--wound care instructions provided for patient-return in 1 week for follow up. 05/16/2013 Appointment: Valentina Smith WPtel: [address] [place], [place] [phone] Hospital follow up 05/16/2013 Patient Education: Patient Medication Summary Completed 05/16/2013 Appointment: Aicha Thompson WPtel: [address] [place], [place] [phone] Injection 05/10/2013 Patient Education: Patient Medication Summary [...] the office. 03/06/2013 Appointment: Valentina Smith WPtel: [address] [place], [place] [phone] [place] [address] Other 03/06/2013 Patient Education: Patient Medication Summary Completed 03/06/2013 Appointment: Aicha Thompson WPtel: [address] [place], [place] [phone] Nurse Visit 02/20/2013 Patient Education: Patient Medication Summary Completed 02/20/2013 Appointment: Aicha Thompson WPtel: [address] [place], [place] [phone] Follow up 01/16/2013 Visit Plan: Joint pain [...] acute concerns. 12/26/2012 Appointment: Aicha Thompson WPtel: [facility] Other 12/26/2012 Patient Education: Patient Medication Summary Completed 12/26/2012 Patient Education: Hypertension Completed 12/26/2012 Appointment: [facility]ich[facility] Thompson [facility]Ptel[phone] [facility] Draw 12/21/2012 Patient Education: Patient Medication [...] acute changes 11/21/2012 Appointment: [facility]icha Thompson WPtel: [phone] [place] Follow up 11/21/2012 Patient Education: Patient Medication Summary Completed 11/21/2012 Patient Education: Hypertension Completed 11/21/2012 Appointment: [facility]icha Thompson WPtel: [phone] [place] Injection 11/16/2012 Patient Education: Patient Medication Summary Completed 11/16/2012 Appointment: Aicha Thompson WPtel: [phone] [place] Injection 09/28/2012 Patient Education: Patient Medication Summary Completed 09/28/2012 Appointment: Aicha Thompson WPtel: [phone] [place] Injection 09/26/2012 Patient Education: Patient Medication Summary Completed 09/26/2012 Appointment: Aicha Thompson WPtel: [phone] [place] Injection 09/12/2012 Patient Education: Patient Medication Summary Completed 09/12/2012 Appointment: [facility]icha Thompson WPtel: [phone] [place] Injection 08/11/2012 Patient Education: Patient [...] management sparingly. 07/13/2012 Appointment: Aicha Thompson WPtel: [address] [place] [address] Other 07/13/2012 Patient Education: Patient Medication Summary [...] medications 05/26/2012 Appointment: Valentina Smith WPtel: [address] [place] [address] Other 05/26/2012 Patient Education: Patient Medication Summary Completed 05/26/2012 Appointment: Valentina Smith WPtel: [address] [place], [place] [phone] Sick 03/15/2012 Appointment: Aicha Thompson WPtel: [address] [place], [place] [phone] Injection 03/02/2012 Patient Education: Patient Medication Summary [...] medication. 02/15/2012 Appointment: Valentina Smith WPtel: [address] [place] [address] Other 02/15/2012 Patient Education: Patient Medication Summary [...] to medications 01/13/2012 Appointment: Valentina Smith WPtel: [address] [place] [address] [place] Other 01/13/2012 Patient Education: Patient Medication Summary Completed 01/13/2012 Appointment: Valentina Smith WPtel: [address] [place], [place] [phone] Other 01/06/2012 Visit Plan: Asthma - chest xray and symbicort sample today. Patellofemoral syndrome- recommended physical therapy. Costochondritis - recommended pt to use antiinflammatories as able for treatment of rib/sternum irritation and for pt to call if her symptoms do not improve. 12/21/2011 Appointment: Aicha Thompson WPtel: [address] [place] [address] Other 12/21/2011 Patient Education: Patient Medication Summary [...] office. 10/02/2011 Appointment: Valentina Smith WPtel: [facility]5 [id number] Other 10/02/2011 Patient Education: Patient Medication Summary Completed 10/02/2011 Visit Plan: Pain in joints-arms, elbows-recent fall- discussed natural and expected course of this diagnosis and to alert me if symptoms do not follow expected course, or if any worse. Patient verbalized understanding. Neck fojq-uhwwmja-dkozpyjdg physical therapy-patient declined at this time-going to see the helmet hat puncher this afternoon. B12 deficiency-B12 injection today in the office. 09/01/2011 Appointment: Valentina Smith WPtel: [facility]5 [id number] Other 09/01/2011 Patient Education: Patient Medication Summary [...] sparingly. 08/03/2011 Appointment: Aicha Thompson WPtel: [facility]5 [facility] Follow up 08/03/2011 Patient Education: Patient Medication [...] PAIN. 06/29/2011 Appointment: Aicha Thompson WPtel: [facility]5 [facility] Follow up 06/29/2011 Patient Education: Patient Medication Summary Completed 06/29/2011 Appointment: Aicha Thompson WPtel: [facility]5 [facility] [place] Other 06/24/2011 Visit Plan: Right knee pain, bilateral wrist pain-recent fall-discussed natural and expected course of this diagnosis and to alert me if symptoms do not follow expected course, or if any worse. Patient verbalized understanding. Recommend follow up with Ortho physician if pain persists. 06/22/2011 Appointment: Valentina Smith WPtel: [facility] [place] Other 06/22/2011 Patient Education: Patient Medication Summary Completed 06/22/2011 Visit Plan: Knee and Ankle pain and instability- recommend re-evaluation by an info specialist at [facility] of the [address] [place] [address]. Pt has been recommended to go back to Dr. Corbin at [facility] of the [address] [place] [address] as my office did not get a [...] fibromyalgia. 06/11/2011 Appointment: Aicha Thompson WPtel: [facility] [place] Injection 06/11/2011 Appointment: Aicha Thompson WPtel: [phone] Other 06/11/2011 Patient Education: Patient Medication Summary Completed 06/11/2011 Visit Plan: Knee and Ankle pain and instability- recommend evaluation by an info specialist at [facility] of the [address] [place] [address]. The pt has been previously referred to [...] appearance. 03/11/2011 Appointment: Aicha Thompson WPtel: [facility]5 [facility]6[address] Other 03/11/2011 Patient Education: Patient Medication Summary Completed 03/11/2011 Patient Education: .Amazing charts Diabetic meal planning guide Completed 03/11 Appointment: Aicha Thompson WPtel: [facility]5 [facility]66[facility] Injection 02/23/2011 Patient Education: Patient Medication Summary Completed 02/23/2011 Visit Plan: iliotibial band syndrome - continue with current treatment per helmet hat puncher. I have recommend use of biofreeze to the right outer leg. I have given pt stretching exercises for home. Fibromyalgia - chronic - continue with exercise, heat, and prn pain medication. Knee pain - apparently resolved prior to her appointment today. No change in present management, call if pain returns. 02/12/2011 Appointment: Aicha Thompson WPtel: [facility]5 [facility]6[address] Other 02/12/2011 Patient Education: Patient Medication Summary [...] appt with Dr Ibarra . Ulcer left uedn-ladycwgn-y/u in 10 days . Hemorrhoidal skin tag-no acute inflammation today -may use hemorrhoid cream as directed as needed-call with any concerns, bleeding, etc. sleep study -[facility] . Headaches-patient is not wearing her CPAP and i suspect this may be contributing to her headaches-will contact [facility] for a new sleep study Neck pain -spinal stenosis -[facility] has attempted to contact patient with no response from [facility]-I have instructed her to call them and get appt scheduled Dr Saunders -[facility] . Bilateral foot and [...] legs - [facility] in [place], [place]- fax # [phone] pt has been seen by retina subspecialist - need brace because of bilateral drop [...] the instructions given to her from her structural fitter and she is to call him if her constipation is uncontrolled. Hemorrhoids-use suppositories as directed. . Anxiety-fairly well controlled-does have added stress with family-no change in medications-call if symptoms worsen Neck pain-recommend rest, ice and anti inflammatories as directed-call if symptoms do not resolve or if any worse. Patient verbalized understanding of plan. . iliotibial band syndrome - continue with current treatment per helmet hat puncher. I have recommend use of biofreeze to [...] and instability- recommend re- evaluation by an info specialist at [facility] of the [address] [place] [address]. Pt has been recommended to go back to Dr. Corbin at [facility] of the [address] [place] [id number] as my office did not get a [...] savella for treatment of fibromyalgia. REFER TO [facility] FOR PODIATRY EVALUATION DX BILATERAL FOOT AND ANKLE PAIN . Bilateral foot pain-foot drop-patient getting AFOs-refer to podiatry for evaluation-wants to see someone in [place] MRI NECK AND BRAIN Call [facility] [...] the list of the neurologists that her real estate office supervisor has recommended and we would consider [...] the list of the neurologists that her real estate office supervisor has recommended and we would consider [...] if any worse. Patient verbalized understanding. Neck bymr-jrxefls-mkhpfybel physical therapy-patient declined at this time- going to see the helmet hat puncher this afternoon. B12 deficiency-B12 injection today in [...] today in the office. . Ulcer of lpnk-pqtaziv-yhamn instructions provided today and instructed patient to return as directed-keep wound clean and dry. Hemorrhoids-refill anusol suppositories and use as directed B12 deficiency-b12 injection today in the office Cgzfqlmyh-ejvlfcigycjp-whinvnv injection today in the office-continue oral medications [...] pressure readings at home. . Generalized abd nhsk-NGH-ogbeid cipro/flagyl-culture urine-recommend patient follow up with Dr Grace for an appt if abdominal pain does not improve Low potassium-check labs . Generalized abd tahr-TXY-msskgs cipro/flagyl-culture urine-recommend patient follow up with Dr [...] for acute changes B12 injection . Neck knud-aflrknv-jzaugai to continue f/u with [facility]-her symptoms have [...] regimen-no changes in medications Dr. Ramey - [facility] . Hypertension - well controlled - [...] pain and instability- recommend evaluation by an info specialist at [facility]. [...] (may be called three old goats) at [facility] and home. . Hypertension - well controlled [...]
--- OUTSIDE RECORDS SUMMARY | 2018-08-03 08:39 | XMS REPORT | CCD ---
Author Author [facility] Thompson Organization [facility] Address [address] [place] [address] Phone Care Team Providers Care Corporate Quality Manager Name Role Phone PP Unavailable CCM Unavailable Summary Purpose Interface Exchange Insurance Providers Payer name Policy type / Coverage type Covered republican ID Effective Begin Date Effective End Date WPS Medicare Part B Medicare Part B [id number] 2013 Unknown [facility] Medicare Part B [id number] 2013 Unknown Family history Grandmother Diagnosis Age [...] status Unknown 01/29/[address]: 541276247 Never smoker 01/29/[address]: 294700 Currently drinks alcohol mixed drink before bed [...] sleep apnea Unknown Active 05/14/2011 Unknown 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 Active 03/11/2011 Unknown Overweight (BMI [...] Active sleep apnea Unknown 05/14/2011 Active 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 03/11/2011 Active Overweight (BMI 25.0-29.9) [...] Start Date Stop Date Status Fill Instructions Claritin-D 12 Hour 5 mg-120 mg tablet,extended release RxNorm: 4107391 Tablet(s) as needed TAKE 1 TABLET BY MOUTH TWICE DAILY NEEDED 201706/12/2018 Active tramadol 50 mg tablet RxNorm: 022423 1-2 Tablet(s) PO TID as needed 03/10/2018 04/08/2018 Inactive cyanocobalamin (vit B-12) 1,000 mcg/mL injection solution RxNorm: 229645 1 Milliliter(s) Inj 03/10/2018 03/10/2018 Inactive Seroquel 100 mg tablet RxNorm: 914239 1 TABLET(S) PO BID 201703/01/2019 Active TAKE 1 TABLET BY MOUTH TWICE DAILY hydrocodone 10 mg-acetaminophen 325 mg tablet RxNorm: 907441 1-2 Tablet(s) PO Q6 as needed for pain 02/21/2018 03/09/2018 Inactive Ventolin HFA 90 mcg/actuation aerosol inhaler RxNorm: 926531 1 OR 2 PUFF(S) INH Q6 PRN NEEDED 01/13/2018 07/11/2018 Active trazodone 100 mg tablet RxNorm: 336729 TABLET(S) TAKE 2 TABLETS BY MOUTH EVERY NIGHT AT BEDTIME 12/07/2017 09/02/2018 Active hydrocodone 10 mg-acetaminophen 325 mg tablet RxNorm: 667268 1-2 Tablet(s) PO Q6 as needed for pain 12/03/2017 12/25/2017 Inactive Ventolin HFA 90 mcg/actuation aerosol inhaler RxNorm: 900412 1 OR 2 PUFF(S) INH Q6 PRN NEEDED 11/26/2017 01/12/2018 Inactive Savella 100 mg tablet RxNorm: 273867 TABLET(S) PO TAKE 1 TABLET BY MOUTH DAILY 11/23/2017 No Stop Date Active Effexor XR 150 mg capsule,extended release RxNorm: 639114 1 CAPSULE(S) PO BID 1 CAPSULE(S) PO BID 11/23/2017 04/21/2018 Active TAKE 1 CAPSULE BY MOUTH TWICE DAILY Claritin-D 12 Hour 5 mg-120 mg tablet,extended release RxNorm: 9129319 Tablet(s) as needed TAKE 1 TABLET BY MOUTH TWICE DAILY NEEDED 201701/20/2018 Inactive diazepam 10 mg tablet RxNorm: 664557 Tablet(s) TAKE 1 TABLET BY MOUTH FOUR TIMES DAILY NEEDED 11/23/2017 03/09/2018 Inactive Valium 10 mg tablet RxNorm: 742914 1 Tablet(s) QID as needed 11/16/2017 01/14/2018 Inactive metoprolol tartrate 25 mg tablet RxNorm: 934104 TABLET(S) TABLET(S) 1/2 TABLET(S) PO BID TAKE 1/2 TABLET BY MOUTH TWICE DAILY 11/12/2017 No Stop Date Active pantoprazole 40 mg tablet,delayed release RxNorm: 493472 TAKE 1 TABLET BY MOUTH EVERY DAY 11/12/2017 05/10/2018 Active betamethasone dipropionate 0.05 % topical cream RxNorm: 189393 1 APPLICATION TOP BID 10/22/2017 11/04/2017 Inactive tramadol 50 mg tablet RxNorm: 964983 1-2 Tablet(s) PO TID as needed 10/20/2017 01/16/2018 Inactive prednisone 10 mg tablets in a dose pack RxNorm: 875085 1 Tablet(s) PO UD 10/19/2017 10/24/2017 Inactive 6-5-4-3-2-1 cyanocobalamin (vit B-12) 1,000 mcg/mL injection solution RxNorm: 559265 1 Milliliter(s) Inj 10/19/2017 10/19/2017 Inactive betamethasone dipropionate 0.05 % topical cream RxNorm: 301842 1 Application TOP BID 10/19/2017 10/21/2017 Inactive hydrocodone 10 mg-acetaminophen 325 mg tablet RxNorm: 104052 1-2 Tablet(s) PO Q6 as needed for pain 10/19/2017 11/10/2017 Inactive Effexor XR 150 mg capsule,extended release RxNorm: 710907 1 Capsule(s) PO BID 1 CAPSULE(S) PO BID 10/19/2017 11/22/2017 Inactive TAKE 1 CAPSULE BY MOUTH TWICE DAILY prednisone 5 mg tablet RxNorm: 475173 1 Tablet(s) PO UD 2017 No Stop Date Active Cipro 500 mg tablet RxNorm: 399815 1 Tablet(s) PO BID 201709/26/2017 Inactive Flagyl 500 mg tablet RxNorm: 299675 1 Tablet(s) PO TID 201709/26/2017 Inactive prednisone 10 mg tablet RxNorm: 319086 1 Tablet(s) PO UD 201709/16/2017 Inactive 2 tabs daily x 3 days 1 tab daily x 3 daily then resume usual 5mg daily hydrocodone 10 mg-acetaminophen 325 mg tablet RxNorm: 140344 1-2 Tablet(s) PO Q6 as needed for pain 09/10/2017 10/02/2017 Inactive Savella 100 mg tablet RxNorm: 281453 TABLET(S) PO TAKE 1 TABLET BY MOUTH DAILY 08/31/2017 No Stop Date Active cyanocobalamin (vit B-12) 1,000 mcg/mL injection solution RxNorm: 030260 1 Milliliter(s) Inj 08/19/2017 08/19/2017 Inactive pantoprazole 40 mg tablet,delayed release RxNorm: 834023 TAKE 1 TABLET BY MOUTH EVERY DAY 08/17/2017 11/11/2017 Inactive trazodone 100 mg tablet RxNorm: 237614 TABLET(S) TAKE 2 TABLETS BY MOUTH EVERY NIGHT AT BEDTIME 08/17/2017 12/06/2017 Inactive Ventolin HFA 90 mcg/actuation aerosol inhaler RxNorm: 178394 1 OR 2 PUFF(S) INH Q6 PRN NEEDED 08/11/2017 01/07/2018 Inactive Advair Diskus 250 mcg-50 mcg/dose powder for inhalation RxNorm: 3036120 1 Puff(s) INH BID 08/11/2017 12/08/2017 Inactive Advair Diskus 250 mcg-50 mcg/dose powder for inhalation RxNorm: 7912722 1 PUFF(S) INH BID 08/11/2017 11/08/2017 Inactive Ventolin HFA 90 mcg/actuation aerosol inhaler RxNorm: 450309 1 OR 2 PUFF(S) INH Q6 PRN NEEDED 08/11/2017 11/25/2017 Inactive hydrocodone 10 mg-acetaminophen 325 mg tablet RxNorm: 722603 1-2 Tablet(s) PO Q6 as needed for pain 08/03/2017 08/25/2017 Inactive tramadol 50 mg tablet RxNorm: 552153 1-2 Tablet(s) PO TID as needed 07/26/2017 09/22/2017 Inactive Valium 10 mg tablet RxNorm: 400531 1 Tablet(s) QID as needed 07/09/2017 09/06/2017 Inactive Effexor XR 150 mg capsule,extended release RxNorm: 151384 Capsule(s) 1 CAPSULE(S) PO BID 07/07/2017 10/18/2017 Inactive TAKE 1 CAPSULE BY MOUTH TWICE DAILY metoprolol tartrate 25 mg tablet RxNorm: 078038 Tablet(s) TABLET(S) 1/2 TABLET(S) PO BID TAKE 1/2 TABLET BY MOUTH TWICE DAILY 07/07/2017 11/11/2017 Inactive diazepam 10 mg tablet RxNorm: 204214 Tablet(s) TAKE 1 TABLET BY MOUTH FOUR TIMES DAILY NEEDED 07/07/2017 08/02/2017 Inactive cyanocobalamin (vit B-12) 1,000 mcg/mL injection solution RxNorm: 261470 1 Milliliter(s) Inj 07/06/2017 07/06/2017 Inactive tramadol 50 mg tablet RxNorm: 425007 1-2 Tablet(s) PO TID as needed 06/21/2017 09/17/2017 Inactive hydrocodone 10 mg-acetaminophen 325 mg tablet RxNorm: 292042 1-2 Tablet(s) PO Q6 as needed for pain 06/17/2017 07/09/2017 Inactive cyclobenzaprine 10 mg tablet RxNorm: 009480 TAKE 1 TABLET BY MOUTH THREE TIMES DAILY NEEDED FOR MUSCLE SPASMS 06/08/2017 08/31/2018 Active Lipitor 20 mg tablet RxNorm: 490695 1 TABLET(S) PO DAILY 201706/02/2018 Active TAKE ONE TABLET BY MOUTH EVERY NIGHT AT BEDTIME Claritin-D 12 Hour 5 mg-120 mg tablet,extended release RxNorm: 4217961 Tablet(s) as needed TAKE 1 TABLET BY MOUTH TWICE DAILY NEEDED 201709/04/2017 Inactive trazodone 100 mg tablet RxNorm: 483305 TABLET(S) TAKE 2 TABLETS BY MOUTH EVERY NIGHT AT BEDTIME 05/17/2017 08/14/2017 Inactive cyclobenzaprine 5 mg tablet RxNorm: 004235 Tablet(s) PO TAKE 1 TABLET BY MOUTH THREE TIMES DAILY NEEDED FOR MUSCLE SPASMS (New dose has not been sent to pharmacy) 05/11/2017 No Stop Date Active Valium 5 mg tablet RxNorm: 461672 1 Tablet(s) PO QID as needed (New dose has not been sent to pharmacy) 05/11/2017 No Stop Date Active diazepam 10 mg tablet RxNorm: 734403 TAKE 1 TABLET BY MOUTH FOUR TIMES DAILY NEEDED 04/28/2017 05/27/2017 Inactive hydrocodone 10 mg-acetaminophen 325 mg tablet RxNorm: 895826 1-2 Tablet(s) PO Q6 as needed for pain 04/27/2017 05/19/2017 Inactive cyanocobalamin (vit B-12) 1,000 mcg/mL injection solution RxNorm: 928426 1 Milliliter(s) Inj 04/27/2017 04/27/2017 Inactive hydrocodone 10 mg-acetaminophen 325 mg tablet RxNorm: 587021 1-2 Tablet(s) PO Q6 as needed for pain 03/17/2017 04/08/2017 Inactive Seroquel 100 mg tablet RxNorm: 101221 1 TABLET(S) PO BID 201603/06/2018 Inactive TAKE 1 TABLET BY MOUTH TWICE DAILY Valium 10 mg tablet RxNorm: 707173 1 Tablet(s) QID as needed 03/05/2017 05/03/2017 Inactive Claritin-D 12 Hour 5 mg-120 mg tablet,extended release RxNorm: 8350745 Tablet(s) as needed TAKE 1 TABLET BY MOUTH TWICE DAILY NEEDED 201604/13/2018 Inactive pantoprazole 40 mg tablet,delayed release RxNorm: 203151 TAKE 1 TABLET BY MOUTH EVERY DAY 02/26/2017 08/16/2017 Inactive tramadol 50 mg tablet RxNorm: 955740 1-2 Tablet(s) PO TID as needed 02/17/2017 05/17/2017 Inactive hydrocodone 10 mg-acetaminophen 325 mg tablet RxNorm: 202384 1-2 Tablet(s) PO Q6 as needed for pain 02/17/2017 03/11/2017 Inactive Valium 10 mg tablet RxNorm: 718580 1 Tablet(s) QID as needed 02/02/2017 03/03/2017 Inactive (Response to an electronic controlled substance refill request - RxReferenceNumber: [id number]|1|0|1) nystatin 100,000 unit/gram topical powder RxNorm: 993845 1 APPLICATION TOP QID UNTIL HEALED 01/21/2017 No Stop Date Active Advair Diskus 250 mcg-50 mcg/dose powder for inhalation RxNorm: 0289768 1 Puff(s) INH BID 01/21/2017 05/20/2017 Inactive hydrocodone 10 mg-acetaminophen 325 mg tablet RxNorm: 287528 1-2 Tablet(s) PO Q6 as needed for pain 01/21/2017 02/11/2017 Inactive metoprolol tartrate 25 mg tablet RxNorm: 014054 TABLET(S) 1/2 TABLET(S) PO BID TAKE 1/2 TABLET BY MOUTH TWICE DAILY 01/18/2017 07/06/2017 Inactive Effexor XR 150 mg capsule,extended release RxNorm: 632185 1 CAPSULE(S) PO BID 01/11/2017 07/06/2017 Inactive TAKE 1 CAPSULE BY MOUTH TWICE DAILY Effexor XR 150 mg capsule,extended release RxNorm: 605218 1 Capsule(s) PO BID 1 CAPSULE(S) PO BID 01/08/2017 07/06/2017 Inactive TAKE 1 CAPSULE BY MOUTH TWICE DAILY nystatin 100,000 unit/gram topical powder RxNorm: 592231 1 APPLICATION TOP QID UNTIL HEALED 12/17/2016 01/20/2017 Inactive hydrocodone 10 mg-acetaminophen 325 mg tablet RxNorm: 919612 1-2 Tablet(s) PO Q6 as needed for pain 12/17/2016 01/07/2017 Inactive Claritin-D 12 Hour 5 mg-120 mg tablet,extended release RxNorm: 9773735 Tablet(s) as needed TAKE 1 TABLET BY MOUTH TWICE DAILY NEEDED 201602/12/2017 Inactive Lipitor 20 mg tablet RxNorm: 965184 1 TABLET(S) PO DAILY 201606/07/2017 Inactive TAKE ONE TABLET BY MOUTH EVERY NIGHT AT BEDTIME Advair Diskus 250 mcg-50 mcg/dose powder for inhalation RxNorm: 8620739 1 Puff(s) INH BID 11/26/2016 01/20/2017 Inactive Valium 10 mg tablet RxNorm: 195707 1 Tablet(s) QID as needed 11/24/2016 01/22/2017 Inactive (Response to an electronic controlled substance refill request - RxReferenceNumber: [id number]|1|0|1) cyanocobalamin (vit B-12) 1,000 mcg/mL injection solution RxNorm: 434348 1 Milliliter(s) Inj 11/17/2016 11/17/2016 Inactive tramadol 50 mg tablet RxNorm: 608804 1-2 Tablet(s) PO TID as needed 11/06/2016 10/19/2017 Inactive hydrocodone 10 mg-acetaminophen 325 mg tablet RxNorm: 119514 1-2 Tablet(s) PO Q6 as needed for pain 11/06/2016 11/27/2016 Inactive nystatin 100,000 unit/gram topical powder RxNorm: 152981 1 Application TOP QID until healed 10/27/2016 12/16/2016 Inactive cyanocobalamin (vit B-12) 1,000 mcg/mL injection solution RxNorm: 823557 1 Milliliter(s) Inj 10/12/2016 10/12/2016 Inactive trazodone 100 mg tablet RxNorm: 742134 Tablet(s) TAKE 2 TABLETS BY MOUTH EVERY NIGHT AT BEDTIME 09/24/2016 03/22/2017 Inactive Valium 10 mg tablet RxNorm: 709565 1 Tablet(s) QID as needed 09/24/2016 11/22/2016 Inactive (Response to an electronic controlled substance refill request - RxReferenceNumber: [id number]|1|0|1) Savella 100 mg tablet RxNorm: 553353 TABLET(S) PO TAKE 1 TABLET BY MOUTH DAILY 09/18/2016 08/30/2017 Inactive pantoprazole 40 mg tablet,delayed release RxNorm: 374818 TAKE 1 TABLET BY MOUTH EVERY DAY 09/18/2016 02/25/2017 Inactive cyanocobalamin (vit B-12) 1,000 mcg/mL injection solution RxNorm: 917325 1 Milliliter(s) Inj 09/11/2016 09/11/2016 Inactive hydrocodone 10 mg-acetaminophen 325 mg tablet RxNorm: 804606 1-2 Tablet(s) PO Q6 as needed for pain 08/24/2016 11/05/2016 Inactive (Response to an electronic controlled substance refill request - RxReferenceNumber: [id number]|1|0|1) Claritin-D 12 Hour 5 mg-120 mg tablet,extended release RxNorm: 1886066 Tablet(s) TAKE 1 TABLET BY MOUTH TWICE DAILY NEEDED 08/13/2016 04/13/2018 Inactive tramadol 50 mg tablet RxNorm: 267692 1-2 Tablet(s) PO TID PRN as needed 08/11/2016 11/05/2016 Inactive metoprolol tartrate 25 mg tablet RxNorm: 599110 TABLET(S) 1/2 TABLET(S) PO BID TAKE 1/2 TABLET BY MOUTH TWICE DAILY 08/10/2016 01/17/2017 Inactive pantoprazole 40 mg tablet,delayed release RxNorm: 787126 TAKE 1 TABLET BY MOUTH EVERY DAY 08/10/2016 11/05/2016 Inactive Savella 100 mg tablet RxNorm: 730537 TABLET(S) PO TAKE 1 TABLET BY MOUTH DAILY 08/10/2016 11/05/2016 Inactive Ventolin HFA 90 mcg/actuation aerosol inhaler RxNorm: 420048 1 OR 2 PUFF(S) INH Q6 PRN NEEDED 08/07/2016 02/02/2017 Inactive Diflucan 150 mg tablet RxNorm: 100827 1 Tablet(s) PO daily 08/201608/13/2016 Inactive nystatin 100,000 unit/mL oral suspension RxNorm: 306101 5 Milliliter(s) PO QID 08/07/2016 08/16/2016 Inactive hydrocodone 10 mg-acetaminophen 325 mg tablet RxNorm: 088485 1-2 Tablet(s) PO Q6 as needed for pain 08/04/2016 08/23/2016 Inactive (Response to an electronic controlled substance refill request - RxReferenceNumber: [id number]|1|0|1) Valium 10 mg tablet RxNorm: 618148 1 Tablet(s) QID as needed 07/20/2016 09/17/2016 Inactive (Response to an electronic controlled substance refill request - RxReferenceNumber: [id number]|1|0|1) tramadol 50 mg tablet RxNorm: 202572 1-2 Tablet(s) PO TID PRN as needed 07/15/2016 11/05/2016 Inactive ok to give 1 month swbrum=714 tablets cyanocobalamin (vit B-12) 1,000 mcg/mL injection solution RxNorm: 133873 Milliliter(s) Inj 07/03/2016 07/03/2016 Inactive Seroquel 100 mg tablet RxNorm: 475894 1 TABLET(S) PO BID 201603/15/2017 Inactive TAKE 1 TABLET BY MOUTH TWICE DAILY hydrocodone 10 mg-acetaminophen 325 mg tablet RxNorm: 204518 1-2 Tablet(s) PO Q6 as needed for pain 06/26/2016 08/03/2016 Inactive (Response to an electronic controlled substance refill request - RxReferenceNumber: [id number]|1|0|1) Valium 10 mg tablet RxNorm: 175038 1 Tablet(s) QID as needed 05/11/2016 07/09/2016 Inactive (Response to an electronic controlled substance refill request - RxReferenceNumber: [id number]|1|0|1) tramadol 50 mg tablet RxNorm: 176840 1-2 Tablet(s) PO TID PRN as needed 05/11/2016 07/08/2016 Inactive ok to give 1 month qrjkom=936 tablets cyclobenzaprine 10 mg tablet RxNorm: 451571 TAKE 1 TABLET BY MOUTH THREE TIMES DAILY NEEDED FOR MUSCLE SPASMS 05/11/2016 05/10/2017 Inactive hydrocodone 10 mg-acetaminophen 325 mg tablet RxNorm: 772908 1-2 Tablet(s) PO Q6 as needed for pain 05/06/2016 06/25/2016 Inactive (Response to an electronic controlled substance refill request - RxReferenceNumber: [id number]|1|0|1) cyanocobalamin (vit B-12) 1,000 mcg/mL injection solution RxNorm: 770375 1 Milliliter(s) Inj 04/20/2016 04/20/2016 Inactive hydrocodone 10 mg-acetaminophen 325 mg tablet RxNorm: 498212 1-2 Tablet(s) PO Q6 as needed for pain 04/03/2016 05/05/2016 Inactive (Response to an electronic controlled substance refill request - RxReferenceNumber: [id number]|1|0|1) pantoprazole 40 mg tablet,delayed release RxNorm: 269701 TAKE 1 TABLET BY MOUTH EVERY DAY 04/02/2016 08/09/2016 Inactive Claritin-D 12 Hour 5 mg-120 mg tablet,extended release RxNorm: 2770465 Tablet(s) TAKE 1 TABLET BY MOUTH TWICE DAILY NEEDED 04/02/2016 11/05/2016 Inactive hydrocodone 10 mg-acetaminophen 325 mg tablet RxNorm: 386074 1-2 Tablet(s) PO Q6 as needed for pain 03/12/2016 04/02/2016 Inactive (Response to an electronic controlled substance refill request - RxReferenceNumber: [id number]|1|0|1) Effexor XR 150 mg capsule,extended release RxNorm: 980377 1 CAPSULE(S) PO BID 03/05/2016 01/07/2017 Inactive TAKE 1 CAPSULE BY MOUTH TWICE DAILY Ventolin HFA 90 mcg/actuation aerosol inhaler RxNorm: 679504 1 OR 2 PUFF(S) INH Q6 PRN NEEDED 02/19/2016 08/06/2016 Inactive cyanocobalamin (vit B-12) 1,000 mcg/mL injection solution RxNorm: 162101 Milliliter(s) Inj 02/13/2016 02/13/2016 Inactive hydrocodone 10 mg-acetaminophen 325 mg tablet RxNorm: 850520 1-2 Tablet(s) PO Q6 as needed for pain 02/05/2016 03/11/2016 Inactive (Response to an electronic controlled substance refill request - RxReferenceNumber: [id number]|1|0|1) Valium 10 mg tablet RxNorm: 956904 1 Tablet(s) QID as needed 02/05/2016 05/04/2016 Inactive (Response to an electronic controlled substance refill request - RxReferenceNumber: [id number]|1|0|1) tramadol 50 mg tablet RxNorm: 137884 1-2 Tablet(s) PO TID PRN as needed 02/05/2016 11/05/2016 Inactive ok to give 1 month plblfq=141 tablets hydrocodone 10 mg-acetaminophen 325 mg tablet RxNorm: 473612 1-2 Tablet(s) PO Q6 as needed for pain 01/08/2016 02/04/2016 Inactive (Response to an electronic controlled substance refill request - RxReferenceNumber: [id number]|1|0|1) metoprolol tartrate 25 mg tablet RxNorm: 237207 Tablet(s) 1/2 TABLET(S) PO BID TAKE 1/2 TABLET BY MOUTH TWICE DAILY 01/08/2016 08/09/2016 Inactive Symbicort 160 mcg-4.5 mcg/actuation HFA aerosol inhaler RxNorm: 4701795 2 INH BID 01/03/2016 11/25/2016 Inactive Symbicort 160 mcg-4.5 mcg/actuation HFA aerosol inhaler RxNorm: 7603193 1 INH daily 01/03/2016 01/02/2016 Inactive Lipitor 20 mg tablet RxNorm: 043081 1 TABLET(S) PO DAILY 201506/26/2016 Inactive TAKE ONE TABLET BY MOUTH EVERY NIGHT AT BEDTIME trazodone 100 mg tablet RxNorm: 834205 TAKE 2 TABLETS BY MOUTH EVERY NIGHT AT BEDTIME 12/30/2015 09/23/2016 Inactive Savella 100 mg tablet RxNorm: 100305 TABLET(S) PO TAKE 1 TABLET BY MOUTH DAILY 12/30/2015 08/09/2016 Inactive hydrocodone 10 mg-acetaminophen 325 mg tablet RxNorm: 834901 1-2 Tablet(s) PO Q6 as needed for pain 12/12/2015 01/07/2016 Inactive (Response to an electronic controlled substance refill request - RxReferenceNumber: [id number]|1|0|1) cyanocobalamin (vit B-12) 1,000 mcg/mL injection solution RxNorm: 903599 1 Milliliter(s) Inj 12/02/2015 12/02/2015 Inactive hydrocodone 10 mg-acetaminophen 325 mg tablet RxNorm: 963070 1-2 Tablet(s) PO Q6 as needed for pain 12/02/2015 12/11/2015 Inactive (Response to an electronic controlled substance refill request - RxReferenceNumber: [id number]|1|0|1) Claritin-D 12 Hour 5 mg-120 mg tablet,extended release RxNorm: 8768649 Tablet(s) TAKE 1 TABLET BY MOUTH TWICE DAILY 11/11/2015 11/10/2015 Inactive Claritin-D 12 Hour 5 mg-120 mg tablet,extended release RxNorm: 1983561 Tablet(s) TAKE 1 TABLET BY MOUTH TWICE DAILY NEEDED 11/11/2015 01/06/2016 Inactive tramadol 50 mg tablet RxNorm: 191228 1-2 Tablet(s) PO TID PRN as needed 11/05/2015 11/05/2016 Inactive ok to give 1 month wimhzb=281 tablets Valium 10 mg tablet RxNorm: 607558 1 Tablet(s) QID as needed 11/05/2015 02/02/2016 Inactive (Response to an electronic controlled substance refill request - RxReferenceNumber: [id number]|1|0|1) cyanocobalamin (vit B-12) 1,000 mcg/mL injection solution RxNorm: 842256 1 Milliliter(s) Inj 10/29/2015 10/29/2015 Inactive hydrocodone 10 mg-acetaminophen 325 mg tablet RxNorm: 862118 1-2 Tablet(s) PO Q6 as needed for pain 10/28/2015 12/01/2015 Inactive (Response to an electronic controlled substance refill request - RxReferenceNumber: [id number]|1|0|1) pantoprazole 40 mg tablet,delayed release RxNorm: 099879 TAKE 1 TABLET BY MOUTH EVERY DAY 10/08/2015 04/01/2016 Inactive Seroquel 100 mg tablet RxNorm: 395028 1 TABLET(S) PO BID 201506/29/2016 Inactive TAKE 1 TABLET BY MOUTH TWICE DAILY trazodone 100 mg tablet RxNorm: 666933 TAKE 2 TABLETS BY MOUTH EVERY NIGHT AT BEDTIME 10/08/2015 10/01/2016 Inactive Lipitor 20 mg tablet RxNorm: 589419 1 TABLET(S) PO DAILY 201504/04/2016 Inactive TAKE ONE TABLET BY MOUTH EVERY NIGHT AT BEDTIME hydrocodone 10 mg-acetaminophen 325 mg tablet RxNorm: 307082 1-2 Tablet(s) PO Q6 as needed for pain 09/19/2015 10/18/2015 Inactive (Response to an electronic controlled substance refill request - RxReferenceNumber: [id number]|1|0|1) Valium 10 mg tablet RxNorm: 564970 1 Tablet(s) QID as needed 09/05/2015 11/03/2015 Inactive (Response to an electronic controlled substance refill request - RxReferenceNumber: [id number]|1|0|1) Savella 100 mg tablet RxNorm: 913157 Tablet(s) PO TAKE 1 TABLET BY MOUTH DAILY 07/19/2015 11/05/2016 Inactive Zithromax Z-Lauro 250 mg tablet RxNorm: 214991 1 Tablet(s) PO UD 07/12/2015 11/04/2015 Inactive z lauro hydrocodone 10 mg-acetaminophen 325 mg tablet RxNorm: 733353 1-2 Tablet(s) PO Q6 as needed for pain 07/10/2015 08/08/2015 Inactive (Response to an electronic controlled substance refill request - RxReferenceNumber: [id number]|1|0|1) tramadol 50 mg tablet RxNorm: 839323 1-2 Tablet(s) PO TID PRN as needed 07/04/2015 11/05/2016 Inactive ok to give 1 month rfmswz=413 tablets hydrocodone 10 mg-acetaminophen 325 mg tablet RxNorm: 124335 1-2 Tablet(s) PO Q6 as needed for pain 06/10/2015 07/09/2015 Inactive (Response to an electronic controlled substance refill request - RxReferenceNumber: [id number]|1|0|1) cyanocobalamin (vit B-12) 1,000 mcg/mL injection solution RxNorm: 601347 Milliliter(s) Inj 06/10/2015 06/10/2015 Inactive pantoprazole 40 mg tablet,delayed release RxNorm: 622009 TABLET(S) PO TAKE 1 TABLET BY MOUTH EVERY DAY 06/10/201511/05 Inactive pantoprazole 40 mg tablet,delayed release RxNorm: 868386 Tablet(s) PO TAKE 1 TABLET BY MOUTH EVERY DAY 06/06/201511/05 Inactive tramadol 50 mg tablet RxNorm: 524505 1-2 Tablet(s) PO TID PRN as needed 05/29/2015 06/27/2015 Inactive ok to give 1 month izktal=940 tablets tramadol 50 mg tablet RxNorm: 222502 1-2 Tablet(s) PO Q6 as needed 05/29/2015 06/09/2015 Inactive Valium 10 mg tablet RxNorm: 404783 1 Tablet(s) QID as needed 05/08/2015 07/06/2015 Inactive (Response to an electronic controlled substance refill request - RxReferenceNumber: [id number]|1|0|1) cyclobenzaprine 10 mg tablet RxNorm: 763501 TAKE 1 TABLET BY MOUTH THREE TIMES DAILY NEEDED FOR MUSCLE SPASMS 05/08/2015 05/10/2016 Inactive Effexor XR 150 mg capsule,extended release RxNorm: 384672 1 Capsule(s) PO BID 1 CAPSULE(S) PO BID 05/08/2015 11/05/2016 Inactive TAKE 1 CAPSULE BY MOUTH TWICE DAILY hydrocodone 10 mg-acetaminophen 325 mg tablet RxNorm: 190989 1-2 Tablet(s) PO Q6 as needed for pain 05/08/2015 06/06/2015 Inactive (Response to an electronic controlled substance refill request - RxReferenceNumber: [id number]|1|0|1) metoprolol tartrate 25 mg tablet RxNorm: 085836 1/2 TABLET(S) PO BID TAKE 1/2 TABLET BY MOUTH TWICE DAILY 05/06/201507/2015 Inactive Claritin-D 12 Hour 5 mg-120 mg tablet,extended release RxNorm: 5280379 TAKE 1 TABLET BY MOUTH TWICE DAILY 04/16/201506/2016 Inactive hydrocodone 10 mg-acetaminophen 325 mg tablet RxNorm: 022764 1-2 Tablet(s) PO Q6 as needed for pain 04/15/2015 05/07/2015 Inactive (Response to an electronic controlled substance refill request - RxReferenceNumber: [id number]|1|0|1) pantoprazole 40 mg tablet,delayed release RxNorm: 332707 TABLET(S) PO TAKE 1 TABLET BY MOUTH EVERY DAY 04/08/201506/06 Inactive hydrocodone 10 mg-acetaminophen 325 mg tablet RxNorm: 333313 1 Tablet(s) PO Q4 PRN TAKE 1-2 TABLETS BY MOUTH EVERY 6 HOURS NEEDED FOR PAIN 03/14/2015 04/12/2015 Inactive (Response to an electronic controlled substance refill request - RxReferenceNumber: [id number]|1|0|1) diazepam 10 mg tablet RxNorm: 649803 1 Tablet(s) TID TAKE 1 TABLET BY MOUTH THREE TIMES DAILY NEEDED 02/08/20152016 Inactive (Response to an electronic controlled substance refill request - RxReferenceNumber: [id number]|1|0|1) Effexor XR 150 mg capsule,extended release RxNorm: 271804 1 CAPSULE(S) PO BID 02/07/2015 05/07/2015 Inactive TAKE 1 CAPSULE BY MOUTH TWICE DAILY cyclobenzaprine 10 mg tablet RxNorm: 933454 TAKE 1 TABLET BY MOUTH THREE TIMES DAILY NEEDED FOR MUSCLE SPASMS 02/07/2015 05/07/2015 Inactive pantoprazole 40 mg tablet,delayed release RxNorm: 227131 TABLET(S) PO TAKE 1 TABLET BY MOUTH EVERY DAY 02/07/201504/07 Inactive hydrocodone 10 mg-acetaminophen 325 mg tablet RxNorm: 320509 1 Tablet(s) PO Q4 PRN TAKE 1-2 TABLETS BY MOUTH EVERY 6 HOURS NEEDED FOR PAIN 01/25/2015 02/23/2015 Inactive (Response to an electronic controlled substance refill request - RxReferenceNumber: [id number]|1|0|1) Bactroban Nasal 2 % ointment RxNorm: 063196 1 Application NASAL BID 01/10/2015 01/10/2015 Inactive mupirocin 2 % topical ointment RxNorm: 418555 1 Application TOP TID 1 APPLICATION TOP PRN 01/10/2015 01/19/2015 Inactive disregard order for nasal ointment , use on left knee trazodone 100 mg tablet RxNorm: 361336 TAKE 2 TABLETS BY MOUTH EVERY NIGHT AT BEDTIME 01/08/2015 10/07/2015 Inactive Seroquel 100 mg tablet RxNorm: 034739 1 TABLET(S) PO BID 201410/04/2015 Inactive TAKE 1 TABLET BY MOUTH TWICE DAILY cyclobenzaprine 10 mg tablet RxNorm: 381008 TAKE 1 TABLET BY MOUTH THREE TIMES DAILY NEEDED FOR MUSCLE SPASMS 01/08/2015 02/06/2015 Inactive hydrocodone 10 mg-acetaminophen 325 mg tablet RxNorm: 564755 1 Tablet(s) PO Q4 PRN TAKE 1-2 TABLETS BY MOUTH EVERY 6 HOURS NEEDED FOR PAIN 12/21/2014 01/19/2015 Inactive (Response to an electronic controlled substance refill request - RxReferenceNumber: [id number]|1|0|1) pantoprazole 40 mg tablet,delayed release RxNorm: 231696 TABLET(S) PO TAKE 1 TABLET BY MOUTH EVERY DAY 12/13/201402/06 Inactive Lipitor 20 mg tablet RxNorm: 760191 1 Tablet(s) PO daily 201409/08/2015 Inactive TAKE ONE TABLET BY MOUTH EVERY NIGHT AT BEDTIME Valium 10 mg tablet RxNorm: 226105 1 Tablet(s) QID as needed 12/12/2014 02/09/2015 Inactive (Response to an electronic controlled substance refill request - RxReferenceNumber: [id number]|1|0|1) hydrocodone 10 mg-acetaminophen 325 mg tablet RxNorm: 422873 Tablet(s) TAKE 1-2 TABLETS BY MOUTH EVERY 6 HOURS NEEDED FOR PAIN 12/12/2014 12/20/2014 Inactive ( Response to an electronic controlled substance refill request - RxReferenceNumber: [id number]|1|0|1) Lipitor 20 mg tablet RxNorm: 179361 1 Tablet(s) PO daily 201412/12/2014 Inactive TAKE ONE TABLET BY MOUTH EVERY NIGHT AT BEDTIME pantoprazole 40 mg tablet,delayed release RxNorm: 862447 TABLET(S) PO TAKE 1 TABLET BY MOUTH EVERY DAY 12/06/201411/05 Inactive Savella 100 mg tablet RxNorm: 760676 Tablet(s) PO TAKE 1 TABLET BY MOUTH DAILY 12/06/2014 07/18/2015 Inactive Lipitor 20 mg tablet RxNorm: 003194 1 Tablet(s) PO daily 201412/10/2014 Inactive TAKE ONE TABLET BY MOUTH EVERY NIGHT AT BEDTIME Valium 10 mg tablet RxNorm: 489350 TAKE 1 TABLET BY MOUTH FOUR TIMES DAILY NEEDED FOR ANXIETY 12/06/2014 12/11/2014 Inactive Valium 10 mg tablet RxNorm: 915255 1 Tablet(s) QID as needed 11/13/2014 12/11/2014 Inactive (Response to an electronic controlled substance refill request - RxReferenceNumber: [id number]|1|0|1) hydrocodone 10 mg-acetaminophen 325 mg tablet RxNorm: 336101 Tablet(s) TAKE 1-2 TABLETS BY MOUTH EVERY 6 HOURS NEEDED FOR PAIN 11/13/2014 12/11/2014 Inactive ( Response to an electronic controlled substance refill request - RxReferenceNumber: [id number]|1|0|1) hydrocodone 10 mg-acetaminophen 325 mg tablet RxNorm: 949308 Tablet(s) TAKE 1-2 TABLETS BY MOUTH EVERY 6 HOURS NEEDED FOR PAIN 11/08/2014 11/12/2014 Inactive ( Response to an electronic controlled substance refill request - RxReferenceNumber: [id number]|1|0|1) Valium 10 mg tablet RxNorm: 589211 1 Tablet(s) QID as needed 11/08/2014 11/12/2014 Inactive (Response to an electronic controlled substance refill request - RxReferenceNumber: [id number]|1|0|1) metoprolol tartrate 25 mg tablet RxNorm: 018168 1/2 TABLET(S) PO BID TAKE 1/2 TABLET BY MOUTH TWICE DAILY 11/08/2014 Inactive Valium 10 mg tablet RxNorm: 534816 TAKE 1 TABLET BY MOUTH FOUR TIMES DAILY NEEDED FOR ANXIETY 11/06/2014 12/09/2014 Inactive Vitamin D2 50,000 unit capsule RxNorm: 376960 1 Capsule(s) PO QW 10/24/2014 10/23/2014 Inactive Vitamin D2 50,000 unit capsule RxNorm: 786899 1 Capsule(s) PO QW x 8 weeks 10/24/2014 12/22/2014 Inactive Entyvio 300 mg intravenous solution RxNorm: 6624291 IV 2014 No Stop Date Active hydrocodone 10 mg-acetaminophen 325 mg tablet RxNorm: 509539 Tablet(s) TAKE 1-2 TABLETS BY MOUTH EVERY 6 HOURS NEEDED FOR PAIN 10/05/2014 11/03/2014 Inactive ( Response to an electronic controlled substance refill request - RxReferenceNumber: [id number]|1|0|1) Valium 10 mg tablet RxNorm: 866392 TAKE 1 TABLET BY MOUTH EVERY 8 HOURS NEEDED 10/05/2014 11/03/2014 Inactive (Response to an electronic controlled substance refill request - RxReferenceNumber: [id number]|1|0|1) Valium 10 mg tablet RxNorm: 879788 1 Tablet(s) PO QID as needed TAKE 1 TABLET BY MOUTH 10/05/2014 11/05/2016 Inactive (Response to an electronic controlled substance refill request - RxReferenceNumber: [id number]|1|0|1) Valium 10 mg tablet RxNorm: 137158 TAKE 1 TABLET BY MOUTH THREE TIMES DAILY NEEDED 09/04/2014 10/03/2014 Inactive (Response to an electronic controlled substance refill request - RxReferenceNumber: [id number]|1|0|1) Valium 10 mg tablet RxNorm: 028581 1 Tablet(s) PO Q8 PRN as needed 09/04/2014 11/09/2014 Inactive hydrocodone 10 mg-acetaminophen 325 mg tablet RxNorm: 101597 Tablet(s) TAKE 1-2 TABLETS BY MOUTH EVERY 6 HOURS NEEDED FOR PAIN 08/27/2014 09/25/2014 Inactive ( Response to an electronic controlled substance refill request - RxReferenceNumber: [id number]|1|0|1) Claritin-D 12 Hour 5 mg-120 mg tablet,extended release RxNorm: 9288198 1 Tablet(s ) PO BID 08/27/2014 04/16/2015 Inactive Ventolin HFA 90 mcg/actuation aerosol inhaler RxNorm: 510712 1 or 2 Puff(s) INH Q6 PRN as needed 08/09/2014 03/06/2015 Inactive pantoprazole 40 mg tablet,delayed release RxNorm: 448091 Tablet(s) PO TAKE 1 TABLET BY MOUTH EVERY DAY 08/09/201408/08 Inactive pantoprazole 40 mg tablet,delayed release RxNorm: 426437 TAKE 1 TABLET BY MOUTH EVERY DAY 08/09/2014 11/05/2016 Inactive diazepam 10 mg tablet RxNorm: 721803 TAKE 1 TABLET BY MOUTH THREE TIMES DAILY NEEDED 07/02/2014 07/31/2014 Inactive (Response to an electronic controlled substance refill request - RxReferenceNumber: [id number]|1|0|1) Valium 10 mg tablet RxNorm: 112378 1 Tablet(s) PO Q8 PRN as needed 07/02/2014 07/01/2014 Inactive hydrocodone 10 mg-acetaminophen 325 mg tablet RxNorm: 922894 Tablet(s) TAKE 1-2 TABLETS BY MOUTH EVERY 6 HOURS NEEDED FOR PAIN 06/14/2014 07/13/2014 Inactive ( Response to an electronic controlled substance refill request - RxReferenceNumber: [id number]|1|0|1) diazepam 10 mg tablet RxNorm: 531514 TAKE 1 TABLET BY MOUTH THREE TIMES DAILY NEEDED 05/29/2014 06/27/2014 Inactive (Response to an electronic controlled substance refill request - RxReferenceNumber: [id number]|1|0|1) diazepam 10 mg tablet RxNorm: 496038 Tablet(s) PO TAKE 1 TABLET BY MOUTH THREE TIMES DAILY NEEDED 05/29/20142013 Inactive (Appended: Controlled substance eRx refill - RxReferenceNumber: [id number]|1|0|1) hydrocodone 10 mg-acetaminophen 325 mg tablet RxNorm: 038100 Tablet(s) TAKE 1-2 TABLETS BY MOUTH EVERY 6 HOURS NEEDED FOR PAIN 05/17/2014 06/13/2014 Inactive ( Response to an electronic controlled substance refill request - RxReferenceNumber: [id number]|1|0|1) diazepam 10 mg tablet RxNorm: 633392 Tablet(s) PO TAKE 1 TABLET BY MOUTH THREE TIMES DAILY NEEDED 04/27/20142013 Inactive (Appended: Controlled substance eRx refill - RxReferenceNumber: [id number]|1|0|1) Anucort-HC 25 mg suppository RxNorm: 5870376 1 SUPPOSITORY RTL QDAY PRN NEEDED 04/03/2014 06/01/2014 Inactive metoprolol tartrate 25 mg tablet RxNorm: 489060 1/2 TABLET(S) PO BID TAKE 1/2 TABLET BY MOUTH TWICE DAILY 04/03/201408/2014 Inactive Anucort-HC 25 mg suppository RxNorm: 7519942 1 SUPPOSITORY RTL QDAY PRN NEEDED 04/03/2014 06/01/2014 Inactive Seroquel 100 mg tablet RxNorm: 513531 1 TABLET(S) PO BID 201312/28/2014 Inactive TAKE 1 TABLET BY MOUTH TWICE DAILY Anucort-HC 25 mg suppository RxNorm: 5350773 1 SUPPOSITORY RTL QDAY PRN NEEDED 04/03/2014 06/01/2014 Inactive hydrocodone 10 mg-acetaminophen 325 mg tablet RxNorm: 673131 Tablet(s) TAKE 1-2 TABLETS BY MOUTH EVERY 6 HOURS NEEDED FOR PAIN 03/22/2014 04/20/2014 Inactive ( Response to an electronic controlled substance refill request - RxReferenceNumber: [id number]|1|0|1) Claritin-D 12 Hour 5 mg-120 mg tablet,extended release RxNorm: 4224707 1 Tablet(s ) PO BID 03/22/2014 2014 Inactive diazepam 10 mg tablet RxNorm: 084929 TAKE 1 TABLET BY MOUTH THREE TIMES DAILY NEEDED 03/19/2014 04/16/2014 Inactive (Response to an electronic controlled substance refill request - RxReferenceNumber: [id number]|1|0|1) Lipitor 20 mg tablet RxNorm: 971833 1 TABLET(S) PO DAILY 201312/05/2014 Inactive TAKE ONE TABLET BY MOUTH EVERY NIGHT AT BEDTIME Effexor XR 150 mg capsule,extended release RxNorm: 506439 1 CAPSULE(S) PO BID 03/01/2014 01/24/2015 Inactive TAKE 1 CAPSULE BY MOUTH TWICE DAILY Claritin-D 12 Hour 5 mg-120 mg tablet,extended release RxNorm: 2574767 1 Tablet(s ) PO BID 02/19/2014 03/21/2014 Inactive cyanocobalamin (vit B-12) 1,000 mcg/mL injection solution RxNorm: 239911 Milliliter(s) Inj 02/15/2014 02/15/2014 Inactive hydrocodone 10 mg-acetaminophen 325 mg tablet RxNorm: 713870 1 Tablet(s) PO Q6 PRN TAKE ONE TO TWO TABLETS BY MOUTH EVERY 6 HOURS NEEDED FOR PAIN 01/30/2014 01/30/2014 Inactive (Response to an electronic controlled substance refill request - RxReferenceNumber: [id number]|1|0|1) hydrocodone 10 mg-acetaminophen 325 mg tablet RxNorm: 225808 TAKE 1-2 TABLETS BY MOUTH EVERY 6 HOURS NEEDED FOR PAIN 01/30/2014 02/19/2014 Inactive (Response to an electronic controlled substance refill request - RxReferenceNumber: [id number]| [id number]|1|0|1) cyanocobalamin (vit B-12) 1,000 mcg/mL injection kit RxNorm: 711008 1 Milliliter(s ) Inj 01/15/2014 01/15/2014 Inactive Kenalog 40 mg/mL suspension for injection RxNorm: 1810042 1 Milliliter(s) Inj 01/15/2014 01/15/2014 Inactive Anucort-HC 25 mg suppository RxNorm: 5956209 1 Suppository RTL QDAY PRN as needed 01/15/2014 02/13/2014 Inactive hydrocodone 10 mg-acetaminophen 325 mg tablet RxNorm: 238294 TAKE ONE TO TWO TABLETS BY MOUTH EVERY 6 HOURS NEEDED FOR PAIN 12/29/2013 01/18/2014 Inactive ( Response to an electronic controlled substance refill request [facility] [place] [id number]|1|0|1) trazodone 100 mg tablet RxNorm: 147455 TAKE 2 TABLETS BY MOUTH EVERY NIGHT AT BEDTIME 12/20/2013 12/14/2014 Inactive mupirocin 2 % topical ointment RxNorm: 910151 1 APPLICATION TOP PRN 12/14/2013 01/09/2015 Inactive cyanocobalamin (vit B-12) 1,000 mcg/mL injection solution RxNorm: 597545 1 Milliliter(s) Inj 12/04/2013 12/04/2013 Inactive Savella 100 mg tablet RxNorm: 565423 1 Tablet(s) PO daily TAKE 1 TABLET BY MOUTH DAILY 11/28/2013 11/05/2016 Inactive Savella 100 mg tablet RxNorm: 221860 Tablet(s) PO TAKE 1 TABLET BY MOUTH DAILY 10/27/2013 11/27/2013 Inactive mupirocin 2 % topical ointment RxNorm: 556639 1 Application TOP PRN 10/17/2013 No Stop Date Active trazodone 100 mg tablet RxNorm: 983565 Tablet(s) PO TAKE 2 TABLETS BY MOUTH EVERY NIGHT AT BEDTIME 09/26/2013 11/05/2016 Inactive cyclobenzaprine 10 mg tablet RxNorm: 966923 Tablet(s) PO TAKE ONE TABLET BY MOUTH THREE TIMES DAILY 09/26/2013 01/07/2015 Inactive diazepam 10 mg tablet RxNorm: 456829 Tablet(s) PO TAKE 1 TABLET BY MOUTH THREE TIMES DAILY NEEDED 08/15/20132013 Inactive (Appended: Controlled substance eRx refill - RxReferenceNumber: [id number]|1|0|1) diazepam 10 mg tablet RxNorm: 313358 1 Tablet(s) PO TID PRN TAKE 1 TABLET BY MOUTH THREE TIMES DAILY NEEDED 08/15/2013 Inactive (Appended: Controlled substance eRx refill - RxReferenceNumber: [id number]|1|0|1) Vitamin B-12 1,000 mcg/mL injection solution RxNorm: 727179 Milliliter(s) Inj 07/24/2013 07/24/2013 Inactive pantoprazole 40 mg tablet,delayed release RxNorm: 367048 Tablet(s) PO TAKE 1 TABLET BY MOUTH EVERY DAY 07/20/201308/08 Inactive hydrocodone 10 mg-acetaminophen 325 mg tablet RxNorm: 333890 1 or 2 Tablet(s) PO Q6 PRN limit 6 per day 06/26/20132013 Inactive (Appended: Controlled substance eRx refill - RxReferenceNumber: [id number]|1|0|1) trazodone 100 mg tablet RxNorm: 514509 Tablet(s) PO TAKE 2 TABLETS BY MOUTH EVERY NIGHT AT BEDTIME 06/26/2013 11/05/2016 Inactive pantoprazole 40 mg tablet,delayed release RxNorm: 005074 Tablet(s) PO TAKE 1 TABLET BY MOUTH EVERY DAY 06/20/201306/05 Inactive prednisone 10 mg tablets in a dose pack RxNorm: 376349 Tablet(s) PO 6-5-4-3-2-1 06/13/2013 06/12/2013 Inactive prednisone 10 mg tablets in a dose pack RxNorm: 758469 Tablet(s) PO UD 6-5-4-3-2- 1 06/13/2013 06/18/2013 Inactive Silvadene 1 % topical cream RxNorm: 425913 1 TOP daily apply thin layer to left knee daily 06/12/2013 06/18/2013 Inactive metoprolol tartrate 25 mg tablet RxNorm: 864039 1/2 Tablet(s) PO BID TAKE 1/2 TABLET BY MOUTH TWICE DAILY 05/19/2013 Inactive Lipitor 20 mg tablet RxNorm: 543263 1 Tablet(s) PO daily 201203/11/2014 Inactive TAKE ONE TABLET BY MOUTH EVERY NIGHT AT BEDTIME Vitamin B-12 1,000 mcg/mL injection solution RxNorm: 440566 1 Milliliter(s) Inj 05/10/2013 05/10/2013 Inactive hydrocodone 10 mg-acetaminophen 325 mg tablet RxNorm: 860730 1 or 2 Tablet(s) PO Q6 PRN limit 6 per day 03/16/2013 No Stop Date Active (Appended: Controlled substance eRx refill - RxReferenceNumber: [id number]|1|0|1) Seroquel 100 mg tablet RxNorm: 161614 1 Tablet(s) PO BID 201203/10/2014 Inactive TAKE 1 TABLET BY MOUTH TWICE DAILY Effexor XR 150 mg capsule,extended release RxNorm: 006142 1 Capsule(s) PO BID 03/16/2013 02/28/2014 Inactive TAKE 1 CAPSULE BY MOUTH TWICE DAILY fluconazole 150 mg tablet RxNorm: 958678 1 Tablet(s) PO daily 03/06/2013 03/12/2013 Inactive Kenalog 40 mg/mL Susp for Injection RxNorm: 4911333 Milliliter(s) Inj 03/06/2013 03/06/2013 Inactive Ventolin HFA 90 mcg/actuation Aerosol Inhaler RxNorm: 1311115 1 or 2 Puff(s) INH Q6 PRN 02/20/2013 03/16/2014 Inactive cyanocobalamin (vitamin B-12) 1,000 mcg/mL Injection RxNorm: 241509 Milliliter(s) Inj 02/20/2013 02/20/2013 Inactive Valium 10 mg tablet RxNorm: 052958 1 Tablet(s) PO Q8 PRN 01/3102/24/2014 Inactive Kenalog 40 mg/mL Susp for Injection RxNorm: 0681031 Milliliter(s) Inj 12/26/2012 12/26/2012 Inactive cyanocobalamin (vitamin B-12) 1,000 mcg/mL Injection RxNorm: 689856 Milliliter(s) Inj 12/21/2012 12/21/2012 Inactive hydrocodone 10 mg-acetaminophen 325 mg tablet RxNorm: 2152705 1 or 2 Tablet(s) PO Q6 PRN limit 6 per day 11/25/20122012 Inactive (Appended: Controlled substance eRx refill - RxReferenceNumber: [id number]|1|0|1) diazepam 10 mg tablet RxNorm: 203946 1 Tablet(s) PO TID PRN 08/15/2013 Inactive TAKE 1 TABLET BY MOUTH THREE TIMES DAILY NEEDED (Appended: Controlled substance eRx refill - RxReferenceNumber: [id number]|1|0|1) diazepam 10 mg tablet RxNorm: 364572 Tablet(s) PO TAKE 1 TABLET BY MOUTH THREE TIMES DAILY NEEDED 11/21/20122013 Inactive (Appended: Controlled substance eRx refill - RxReferenceNumber: [id number]|1|0|1) Vitamin B-12 1,000 mcg/mL Injection RxNorm: 602432 1 Milliliter(s) Inj 11/16/2012 11/16/2012 Inactive hydrocodone 10 mg-acetaminophen 325 mg tablet RxNorm: 5793535 1 or 2 Tablet(s) PO Q6 PRN limit 6 per day 10/24/20122012 Inactive (Appended: Controlled substance eRx refill - RxReferenceNumber: [id number]|1|0|1) hydrocodone 10 mg-acetaminophen 325 mg tablet RxNorm: 5684785 Tablet(s) PO limit 5x days 10/24/2012 10/23/2012 Inactive (Appended: Controlled substance eRx refill - RxReferenceNumber: [id number]|1|0|1) Savella 100 mg tablet RxNorm: 588131 Tablet(s) PO TAKE 1 TABLET BY MOUTH DAILY 10/14/2012 12/05/2014 Inactive Tubersol 5 tub. unit/0.1 mL Intradermal RxNorm: 732519 Milliliter(s) IDrm 09/26/2012 09/26/2012 Inactive hydrocodone 10 mg-acetaminophen 325 mg tablet RxNorm: 1373382 1 Tablet(s) PO Q4 PRN q 4 hr prn limit 5 per day 09/19/2012 No Stop Date Active (Appended: Controlled substance eRx refill - RxReferenceNumber: [id number]|1|0|1) hydrocodone 10 mg-acetaminophen 325 mg tablet RxNorm: 8439835 Tablet(s) PO TAKE 1 TABLET BY MOUTH FOUR TIMES DAILY 09/16/2012 10/23/2012 Inactive (Appended: Controlled substance eRx refill - RxReferenceNumber: [id number]|1|0|1) cyclobenzaprine 10 mg tablet RxNorm: 643026 Tablet(s) PO TAKE ONE TABLET BY MOUTH THREE TIMES DAILY 09/16/2012 09/25/2013 Inactive hydrocodone 10 mg-acetaminophen 325 mg tablet RxNorm: 7822422 1 Tablet(s) PO Q4 PRN q 4 hr prn limit 5 per day 09/14/2012 09/19/2012 Inactive (Appended: Controlled substance eRx refill - RxReferenceNumber: [id number]|1|0|1) cyanocobalamin (vitamin B-12) 1,000 mcg/mL Injection RxNorm: 548816 1 Milliliter(s ) Inj 09/12/2012 09/12/2012 Inactive cyclobenzaprine 10 mg tablet RxNorm: 438104 Tablet(s) PO TAKE ONE TABLET BY MOUTH THREE TIMES DAILY 09/02/2012 09/15/2012 Inactive hydrocodone 10 mg-acetaminophen 325 mg tablet RxNorm: 0304705 1 Tablet(s) PO QID TAKE 1 TABLET BY MOUTH FOUR TIMES DAILY 08/23/2012 09/13/2012 Inactive (Appended: Controlled substance eRx refill - RxReferenceNumber: [id number]|1|0|1) Kenalog 40 mg/mL Susp for Injection RxNorm: 3043304 1 Milliliter(s) Inj 08/11/2012 08/11/2012 Inactive Vitamin B-12 1,000 mcg/mL Injection RxNorm: 193140 1 Milliliter(s) Inj 08/11/2012 08/11/2012 Inactive Zithromax 250 mg tablet RxNorm: 174830 Tablet(s) PO 07/21/2012 09/14/2012 Inactive please give z lauro cefdinir 300 mg capsule RxNorm: 223895 1 Capsule(s) PO BID 07/20/2012 Inactive cefdinir 300 mg capsule RxNorm: 549082 1 Capsule(s) PO BID 07/27/2012 Inactive diazepam 10 mg tablet RxNorm: 109268 1 Tablet(s) PO TID PRN 12/201211/22/2012 Inactive TAKE 1 TABLET BY MOUTH THREE TIMES DAILY NEEDED (Appended: Controlled substance eRx refill - RxReferenceNumber: [id number]|1|0|1) Vitamin B-12 1,000 mcg/mL Injection RxNorm: 650915 1 Milliliter(s) Inj 07/13/2012 07/13/2012 Inactive pantoprazole 40 mg tablet,delayed release RxNorm: 356621 1 Tablet(s) PO daily 06/14/2012 06/13/2012 Inactive pantoprazole 40 mg tablet,delayed release RxNorm: 672791 1 Tablet(s) PO daily 06/14/2012 06/19/2013 Inactive trazodone 100 mg tablet RxNorm: 276417 Tablet(s) PO TAKE 2 TABLETS BY MOUTH EVERY NIGHT AT BEDTIME 06/06/2012 11/05/2016 Inactive hydrocodone 10 mg-acetaminophen 325 mg tablet RxNorm: 4963561 Tablet(s) PO TAKE 1 TABLET BY MOUTH FOUR TIMES DAILY 05/24/2012 08/23/2012 Inactive (Appended: Controlled substance eRx refill - RxReferenceNumber: [id number]|1|0|1) Symbicort 160 mcg-4.5 mcg/actuation HFA Aerosol Inhaler RxNorm: 0714745 1 INH daily 05/24/2012 05/23/2012 Inactive this is an increase in dosing Symbicort 160 mcg-4.5 mcg/actuation HFA Aerosol Inhaler RxNorm: 5934473 1 INH daily 05/24/2012 06/17/2013 Inactive this is an increase in dosing Ventolin HFA 90 mcg/actuation Aerosol Inhaler RxNorm: 022543 1 or 2 Puff(s) INH Q6 PRN 05/24/2012 05/23/2012 Inactive Ventolin HFA 90 mcg/actuation Aerosol Inhaler RxNorm: 383128 1 or 2 Puff(s) INH Q6 PRN 05/24/2012 02/19/2013 Inactive metoprolol tartrate 25 mg tablet RxNorm: 505095 Tablet(s) PO TAKE 1/2 TABLET BY MOUTH TWICE DAILY 05/24/2012 05/18/2013 Inactive hydrocodone-acetaminophen 10 mg-325 mg tablet RxNorm: 7864706 Tablet(s) PO TAKE 1 TABLET BY MOUTH FOUR TIMES DAILY 05/17/2012 05/17/2012 Inactive (Appended: Controlled substance eRx refill - RxReferenceNumber: [id number]|1|0|1) diazepam 10 mg tablet RxNorm: 430542 Tablet(s) PO 05/03/2012 07/13/2012 Inactive TAKE 1 TABLET BY MOUTH THREE TIMES DAILY NEEDED (Appended: Controlled substance eRx refill - RxReferenceNumber: [id number]|1|0|1) metoprolol tartrate 25 mg tablet RxNorm: 257555 Tablet(s) PO 11/05/2016 Inactive TAKE 1/2 TABLET BY MOUTH TWICE DAILY hydrocodone-acetaminophen 10 mg-325 mg tablet RxNorm: 3378378 Tablet(s) PO 04/11/2012 05/17/2012 Inactive TAKE 1 TABLET BY MOUTH FOUR TIMES DAILY (Appended: Controlled substance eRx refill - RxReferenceNumber: [id number]|1|0|1) ProAir HFA 90 mcg/actuation Aerosol Inhaler RxNorm: 977960 2 INH Q4 PRN 04/05/2012 04/29/2013 Inactive Symbicort 80 mcg-4.5 mcg/actuation HFA Aerosol Inhaler RxNorm: 9668757 2 INH BID 04/05/2012 04/04/2012 Inactive Symbicort 80 mcg-4.5 mcg/actuation HFA Aerosol Inhaler RxNorm: 2337157 2 INH BID 04/05/2012 05/23/2012 Inactive ProAir HFA 90 mcg/actuation Aerosol Inhaler RxNorm: 615321 2 INH Q4 PRN 04/05/2012 04/04/2012 Inactive diazepam 10 mg tablet RxNorm: 539555 Tablet(s) PO 03/17/2012 05/03/2012 Inactive TAKE 1 TABLET BY MOUTH THREE TIMES DAILY NEEDED (Appended: Controlled substance eRx refill - RxReferenceNumber: [id number]|1|0|1) Effexor XR 150 mg capsule,extended release RxNorm: 557065 Capsule(s) PO 03/13/2012 03/15/2013 Inactive TAKE 1 CAPSULE BY MOUTH TWICE DAILY fluconazole 150 mg tablet RxNorm: 023724 1 Tablet(s) PO daily 03/11/2012 03/17/2012 Inactive Lipitor 20 mg tablet RxNorm: 005017 Tablet(s) PO 02/25/2012 03/20/2013 Inactive TAKE ONE TABLET BY MOUTH EVERY NIGHT AT BEDTIME Seroquel 100 mg tablet RxNorm: 556182 1 Tablet(s) PO BID 201102/18/2013 Inactive TAKE 1 TABLET BY MOUTH TWICE DAILY hydrocodone-acetaminophen 10 mg-325 mg tablet RxNorm: 7473150 Tablet(s) PO 02/25/2012 04/11/2012 Inactive TAKE 1 TABLET BY MOUTH FOUR TIMES DAILY . (Appended : Controlled substance eRx refill - RxReferenceNumber: [id number]|1|0|1) Seroquel 100 mg tablet RxNorm: 756124 1 Tablet(s) PO BID 201102/24/2012 Inactive TAKE 1 TABLET BY MOUTH TWICE DAILY Nexium 40 mg capsule,delayed release RxNorm: 471635 1 Capsule(s) PO daily 02/16/2012 06/13/2012 Inactive Effexor XR 150 mg capsule,extended release RxNorm: 516933 Capsule(s) PO 01/14/2012 11/05/2016 Inactive TAKE 1 CAPSULE BY MOUTH TWICE DAILY Kenalog 40 mg/mL Susp for Injection RxNorm: 0185032 1 Milliliter(s) Inj 01/13/2012 01/13/2012 Inactive Vitamin B-12 1,000 mcg/mL Injection RxNorm: 858979 Milliliter(s) Inj 12/21/2011 12/21/2011 Inactive hydrocodone-acetaminophen 10 mg-325 mg tablet RxNorm: 4280591 Tablet(s) PO 12/15/2011 02/25/2012 Inactive TAKE 1 TABLET BY MOUTH FOUR TIMES DAILY (Appended: Controlled substance eRx refill - RxReferenceNumber: [id number]|1|0|1) diazepam 10 mg tablet RxNorm: 238177 Tablet(s) PO 12/15/2011 03/17/2012 Inactive TAKE 1 TABLET BY MOUTH THREE TIMES DAILY NEEDED (Appended: Controlled substance eRx refill - RxReferenceNumber: [id number]|1|0|1) diazepam 10 mg Tab RxNorm: 994152 1 Tablet(s) PO daily 201112/15/2011 Inactive TAKE 1 TABLET BY MOUTH THREE TIMES DAILY (Appended: Controlled substance eRx refill - RxReferenceNumber: [id number]|1|0|1) hydrocodone-acetaminophen 10 mg-325 mg Tab RxNorm: 1464375 1 Tablet(s) PO QID 12/14/2011 12/15/2011 Inactive TAKE 1 TABLET BY MOUTH FOUR TIMES DAILY (Appended: Controlled substance eRx refill - RxReferenceNumber: [id number]|1|0|1) Seroquel 100 mg tablet RxNorm: 694100 Tablet(s) PO 11/27/2011 03/15/2013 Inactive TAKE 1 TABLET BY MOUTH TWICE DAILY hydrocodone-acetaminophen 10 mg-325 mg Tab RxNorm: 6481857 1 Tablet(s) PO QID 11/27/2011 12/13/2011 Inactive TAKE 1 TABLET BY MOUTH FOUR TIMES DAILY (Appended: Controlled substance eRx refill - RxReferenceNumber: [id number]|1|0|1) Seroquel 100 mg Tab RxNorm: 586288 1 Tablet(s) PO BID 201111/26/2011 Inactive Seroquel 100 mg tablet RxNorm: 995918 Tablet(s) PO 11/27/2011 02/16/2012 Inactive TAKE 1 TABLET BY MOUTH TWICE DAILY Nexium 40 mg capsule,delayed release RxNorm: 331542 1 Capsule(s) PO daily 11/16/2011 02/15/2012 Inactive cyanocobalamin (vitamin B-12) 1,000 mcg/mL Injection RxNorm: 501702 1 Milliliter(s ) Inj 10/30/2011 10/30/2011 Inactive hydrocodone-acetaminophen 10 mg-325 mg Tab RxNorm: 7246093 1 Tablet(s) PO QID 10/13/2011 11/23/2011 Inactive TAKE 1 TABLET BY MOUTH FOUR TIMES DAILY (Appended: Controlled substance eRx refill - RxReferenceNumber: [id number]|1|0|1) Effexor XR 150 mg capsule,extended release RxNorm: 594283 1 Capsule(s) PO BID 10/12/2011 01/09/2012 Inactive Fish Oil 1,000 mg Cap RxNorm: 1 Capsule(s) PO QID 10/02/2011 No Stop Date Active Vitamin B-12 1,000 mcg/mL Injection RxNorm: 064715 Milliliter(s) Inj 10/02/2011 10/02/2011 Inactive Kenalog 40 mg/mL Susp for Injection RxNorm: 4969442 Milliliter(s) Inj 10/02/2011 10/02/2011 Inactive diazepam 10 mg Tab RxNorm: 471469 1 Tablet(s) PO daily 201112/13/2011 Inactive TAKE 1 TABLET BY MOUTH THREE TIMES DAILY (Appended: Controlled substance eRx refill - RxReferenceNumber: [id number]|1|0|1) Vitamin B-12 1,000 mcg/mL Injection RxNorm: 847454 Milliliter(s) Inj 09/01/2011 09/01/2011 Inactive hydrocodone-acetaminophen 10 mg-325 mg Tab RxNorm: 8437363 1 Tablet(s) PO QID 08/25/2011 10/05/2011 Inactive TAKE 1 TABLET BY MOUTH FOUR TIMES DAILY (Appended: Controlled substance eRx refill - RxReferenceNumber: [id number]|1|0|1) diazepam 10 mg Tab RxNorm: 420702 Tablet(s) PO 08/10/2011 No Stop Date Active TAKE 1 TABLET BY MOUTH THREE TIMES DAILY (Appended: Controlled substance eRx refill - RxReferenceNumber: [id number]|1|0|1) Vitamin B-12 1,000 mcg/mL Injection RxNorm: 834736 Milliliter(s) Inj 08/03/2011 08/03/2011 Inactive fluticasone 50 mcg/actuation Nasal [place], Susp RxNorm: 3836323 2 [place] NASAL BID 07/27/2011 08/19/2012 Inactive hydrocodone-acetaminophen 10 mg-325 mg Tab RxNorm: 4873144 Tablet(s) PO 07/09/2011 08/24/2011 Inactive TAKE 1 TABLET BY MOUTH FOUR TIMES DAILY (Appended: Controlled substance eRx refill - RxReferenceNumber: [id number]|1|0|1) diazepam 10 mg Tab RxNorm: 901869 Tablet(s) PO 07/09/2011 08/09/2011 Inactive TAKE 1 TABLET BY MOUTH THREE TIMES DAILY (Appended: Controlled substance eRx refill - RxReferenceNumber: [id number]|1|0|1) diazepam 10 mg Tab RxNorm: 993269 Tablet(s) PO 07/08/2011 07/08/2011 Inactive TAKE 1 TABLET BY MOUTH THREE TIMES DAILY (Appended: Controlled substance eRx refill - RxReferenceNumber: [id number]|1|0|1) hydrocodone-acetaminophen 10 mg-325 mg Tab RxNorm: 8849322 Tablet(s) PO 07/08/2011 07/08/2011 Inactive TAKE 1 TABLET BY MOUTH FOUR TIMES DAILY (Appended: Controlled substance eRx refill - RxReferenceNumber: [id number]|1|0|1) cyclobenzaprine 10 mg tablet RxNorm: 420614 Tablet(s) PO 201109/01/2012 Inactive TAKE ONE TABLET BY MOUTH THREE TIMES DAILY Lipitor 40 mg Tab RxNorm: 885108 1 Tablet(s) PO daily 201106/16/2011 Inactive Lipitor 40 mg Tab RxNorm: 760620 1 Tablet(s) PO daily 201106/10/2012 Inactive trazodone 100 mg tablet RxNorm: 691217 Tablet(s) PO 06/02/2011 06/05/2012 Inactive TAKE 2 TABLETS BY MOUTH EVERY NIGHT AT BEDTIME diazepam 10 mg Tab RxNorm: 448589 Tablet(s) PO 05/28/2011 05/29/2011 Inactive TAKE 1 TABLET BY MOUTH THREE TIMES DAILY (Appended: Controlled substance eRx refill - RxReferenceNumber: [id number]|1|0|1) diazepam 10 mg Tab RxNorm: 061250 Tablet(s) PO 05/28/2011 07/08/2011 Inactive TAKE 1 TABLET BY MOUTH THREE TIMES DAILY (Appended: Controlled substance eRx refill - RxReferenceNumber: [id number]|1|0|1) hydrocodone-acetaminophen 10 mg-325 mg Tab RxNorm: 3202150 1 Tablet(s) PO QID 05/26/2011 07/08/2011 Inactive metoprolol tartrate 25 mg tablet RxNorm: 607116 Tablet(s) PO 04/10/2012 Inactive TAKE 1/2 TABLET BY MOUTH TWICE DAILY Savella 100 mg tablet RxNorm: 685389 Tablet(s) PO 05/14/2011 10/13/2012 Inactive TAKE 1 TABLET BY MOUTH DAILY Influenza Virus Vaccine 0.5 mL RxNorm: IM 02/23/2011 02/23/2011 Inactive B12 1000 mcg RxNorm: IM 02/23/20112010 Inactive hydrocodone-acetaminophen 10 mg-325 mg Tab RxNorm: 9974623 1 Tablet(s) PO QID 01/29/2011 01/28/2011 Inactive Restasis 0.05 % eye drops in a dropperette RxNorm: 678519 1 OPH BID No Start Date Active vitamin A-vit C-vit E-zinc-Se Tab RxNorm: 1 Tablet(s) PO daily No Start Date Active garlic extract Oral RxNorm: Oral No Start Date Active Acidophilus Tab RxNorm : 2 Tablet(s) PO QHS No Start Date Active Cranberry Concentrate Cap RxNorm: 1 Capsule(s) PO BID No Start Date Active Xopenex 1.25 mg/3 mL Neb Solution RxNorm: 622591 1 Milliliter(s) INH TID No Start Date Active niacin ER 500 mg Tab RxNorm: 489064 2 Tablet(s) PO HS No Start Date Active SenokotXTRA 17.2 mg Tab RxNorm: 7585336 Oral No Start Date Active Lotemax 0.5 % eye ointment RxNorm: 7573799 1 OPH QHS No Start Date Active Gaviscon Extra Strength Oral RxNorm: Oral No Start Date Active melatonin 3 mg Tab RxNorm: 432469 1 Tablet(s) PO QHS No Start Date Active Voltaren 1 % Topical Gel RxNorm: 457047 4 Gram(s) TOP QID No Start Date Active Vitamin D 1,000 unit Cap RxNorm: 797700 1 Capsule(s) PO QHS No Start Date Active Mucinex DM 30 mg-600 mg 12 hr Tab RxNorm: 6390423 1 Tablet(s) PO BID No Start Date Active calcium citrate 200 mg (950 mg) Tab RxNorm: 788041 1 Tablet(s) PO QID No Start Date Active valerian 530 mg Cap RxNorm: 2 Capsule(s) PO QHS No Start Date Active Anucort-HC 25 mg Suppository RxNorm: 1445901 1 Suppository RTL QDAY PRN No Start Date 01/14/2014 Inactive Nexium 40 mg Capsule, delayed release RxNorm: 875331 1 Capsule(s) PO daily No Start Date 11/15/2011 Inactive Lipitor 20 mg tablet RxNorm: 545534 1 Tablet(s) PO QHS No Start Date 02/25/2012 Inactive mupirocin 2 % topical ointment RxNorm: 784030 1 Application TOP PRN No Start Date 10/16/2013 Inactive fluconazole 150 mg tablet RxNorm: 779292 1 Tablet(s) PO daily No Start Date 03/10/2012 Inactive Fish Oil 1,000 mg Cap RxNorm: 1 Capsule(s) PO TID No Start Date 10/01/2011 Inactive hydrocodone-acetaminophen 10 mg-325 mg Tab RxNorm: 3058669 1 Tablet(s) PO QID No Start Date 05/25/2011 Inactive Zithromax 250 mg tablet RxNorm: 238759 Tablet(s) PO No Start Date 07/20/2012 Inactive please give z lauro prednisone 10 mg tablet RxNorm: 280161 Tablet(s) PO taper. 6-5-4-3-2-1 # 21 No Start Date 09/16/2017 Inactive fluticasone 50 mcg/actuation Nasal [place], Susp RxNorm: 0437550 2 [place] NASAL BID No Start Date 07/26/2011 Inactive Seroquel 100 mg Tab RxNorm: 079215 1 Tablet(s) PO BID No Start Date 11/26/2011 Inactive nystatin 100,000 unit/gram topical powder RxNorm: 664869 1 Application TOP QID until healed No Start Date 10/26/2016 Inactive [place] 100 mg Tab RxNorm: 287274 1 Tablet(s) PO daily No Start Date 05/13/2011 Inactive cyclobenzaprine 10 mg Tab RxNorm: 571100 1 Tablet(s) PO TID No Start Date 07/05/2011 Inactive metoprolol tartrate 25 mg Tab RxNorm: 656051 1/2 Tablet(s) PO BID No Start Date 05/25/2011 Inactive trazodone 100 mg Tab RxNorm: 946510 2 Tablet(s) PO QHS No Start Date 06/01/2011 Inactive Zithromax Z-Lauro 250 mg tablet RxNorm: 958730 1 Tablet(s) PO UD No Start Date 07/11/2015 Inactive z lauro Effexor XR 150 mg 24 hr Cap RxNorm: 405027 1 Capsule(s) PO BID No Start Date 10/11/2011 Inactive diazepam 10 mg Tab RxNorm: 929968 1 Tablet(s) PO TID No Start Date 05/28/2011 Inactive tramadol 50 mg tablet RxNorm: 742193 1-2 Tablet(s) PO Q6 as needed No Start Date 05/28/2015 Inactive Medication Administered Medication Codes Instructions Start Date Status cyanocobalamin (vit B-12) 1,000 mcg/mL injection solution RxNorm: 158763 1Milliliter 03/10/2018 No longer Active cyanocobalamin (vit B-12) 1,000 mcg/mL injection solution RxNorm: 739059 1Milliliter 10/19/2017 No longer Active cyanocobalamin (vit B-12) 1,000 mcg/mL injection solution RxNorm: 021493 1Milliliter 08/19/2017 No longer Active cyanocobalamin (vit B-12) 1,000 mcg/mL injection solution RxNorm: 492808 1Milliliter 07/06/2017 No longer Active cyanocobalamin (vit B-12) 1,000 mcg/mL injection solution RxNorm: 990345 1Milliliter 04/27/2017 No longer Active cyanocobalamin (vit B-12) 1,000 mcg/mL injection solution RxNorm: 822817 1Milliliter 11/17/2016 No longer Active cyanocobalamin (vit B-12) 1,000 mcg/mL injection solution RxNorm: 738252 1Milliliter 10/12/2016 No longer Active cyanocobalamin (vit B-12) 1,000 mcg/mL injection solution RxNorm: 760525 1Milliliter 09/11/2016 No longer Active cyanocobalamin (vit B-12) 1,000 mcg/mL injection solution RxNorm: 310012 Milliliter 07/03/2016 No longer Active cyanocobalamin (vit B-12) 1,000 mcg/mL injection solution RxNorm: 316059 1Milliliter 04/20/2016 No longer Active cyanocobalamin (vit B-12) 1,000 mcg/mL injection solution RxNorm: 801751 Milliliter 02/13/2016 No longer Active cyanocobalamin (vit B-12) 1,000 mcg/mL injection solution RxNorm: 709016 1Milliliter 12/02/2015 No longer Active cyanocobalamin (vit B-12) 1,000 mcg/mL injection solution RxNorm: 123940 1Milliliter 10/29/2015 No longer Active cyanocobalamin (vit B-12) 1,000 mcg/mL injection solution RxNorm: 275374 Milliliter 06/10/2015 No longer Active cyanocobalamin (vit B-12) 1,000 mcg/mL injection solution RxNorm: 593633 Milliliter 02/15/2014 No longer Active cyanocobalamin (vit B-12) 1,000 mcg/mL injection kit RxNorm : 811964 1Milliliter 01/15/2014 No longer Active Kenalog 40 mg/mL suspension for injection RxNorm: 9321927 1Milliliter 01/15/2014 No longer Active cyanocobalamin (vit B-12) 1,000 mcg/mL injection solution RxNorm: 469232 1Milliliter 12/04/2013 No longer Active Vitamin B-12 1,000 mcg/mL injection solution RxNorm: 198931 Milliliter 07/24/2013 No longer Active Vitamin B-12 1,000 mcg/mL injection solution RxNorm: 279836 1Milliliter 05/10/2013 No longer Active Kenalog 40 mg/mL Susp for Injection RxNorm: 5053617 Milliliter 03/06/2013 No longer Active cyanocobalamin (vitamin B-12) 1,000 mcg/mL Injection RxNorm : 282907 Milliliter 02/20/2013 No longer Active Kenalog 40 mg/mL Susp for Injection RxNorm: 1058774 Milliliter 12/26/2012 No longer Active cyanocobalamin (vitamin B-12) 1,000 mcg/mL Injection RxNorm : 703798 Milliliter 12/21/2012 No longer Active Vitamin B-12 1,000 mcg/mL Injection RxNorm: 546662 1Milliliter 11/16/2012 No longer Active Tubersol 5 tub. unit/0.1 mL Intradermal RxNorm: 903543 Milliliter 09/26/2012 No longer Active cyanocobalamin (vitamin B-12) 1,000 mcg/mL Injection RxNorm : 048048 1Milliliter 09/12/2012 No longer Active Kenalog 40 mg/mL Susp for Injection RxNorm: 8653584 1Milliliter 08/11/2012 No longer Active Vitamin B-12 1,000 mcg/mL Injection RxNorm: 318884 1Milliliter 08/11/2012 No longer Active Vitamin B-12 1,000 mcg/mL Injection RxNorm: 402581 1Milliliter 07/13/2012 No longer Active Kenalog 40 mg/mL Susp for Injection RxNorm: 7343175 1Milliliter 01/13/2012 No longer Active Vitamin B-12 1,000 mcg/mL Injection RxNorm: 606871 Milliliter 12/21/2011 No longer Active cyanocobalamin (vitamin B-12) 1,000 mcg/mL Injection RxNorm : 497708 1Milliliter 10/30/2011 No longer Active Vitamin B-12 1,000 mcg/mL Injection RxNorm: 090155 Milliliter 10/02/2011 No longer Active Kenalog 40 mg/mL Susp for Injection RxNorm: 6210914 Milliliter 10/02/2011 No longer Active Vitamin B-12 1,000 mcg/mL Injection RxNorm: 264970 Milliliter 09/01/2011 No longer Active Vitamin B-12 1,000 mcg/mL Injection RxNorm: 347626 Milliliter 08/03/2011 No longer Active B12 1000 [...] 2011 Weight gain ICD-9: 783.1 06/29/2011 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 10/2010 Reason For Visit Reason [...] Item Item Code Result Date Comp Metabolic Ttz285 NA 138 mEq/L 09/20/2017 Comp Metabolic Irv700 K 4.1 mEq/L 09/20/2017 Comp Metabolic Rpl953 CL 101 mEq/L 09/20/2017 Comp Metabolic Xiu726 CO2 25.0 mEq/L 09/20/2017 Comp Metabolic Ljg777 ANION GAP 16 09/20/2017 Comp Metabolic Nfc977 GLUCOSE 105 mg/dL 09/20/2017 Comp Metabolic Wrd841 Creat 0.8 mg/dL 09/20/2017 Comp Metabolic Krt558 eGFR 86 ml/min/1.73m2 09/20/2017 Comp Metabolic Nbd815 BUN 24 mg/dL 09/20/2017 Comp Metabolic Qrj469 B/C Ratio 31.6 Ratio 09/20/2017 Comp Metabolic Nsb248 CALCIUM 10.0 mg/dL 09/20/2017 Comp Metabolic Ctu431 ALK PHOS 63 U/L 09/20/2017 Comp Metabolic Lvv320 AST(SGOT) 28 U/L 09/20/2017 Comp Metabolic Luw525 ALT(SGPT) 34 U/L 09/20/2017 Comp Metabolic Sva964 BILI T 0.3 mg/dL 09/20/2017 Comp Metabolic Xqi516 ALBUMIN 4.8 g/dL 09/20/2017 Comp Metabolic Coc039 TPRO 7.2 g/dL 09/20/2017 Comp Metabolic Ipz406 GLOB 2.4 g/dL 09/20/2017 Comp Metabolic Wat469 A/G Ratio 2.0 Ratio 09/20/2017 Comp Metabolic Xog099 Osmo 280 mOsmo 09/20/2017 Urine Culture Ucult Preliminary NO Growth Day 1 09/20/2017 Urine Culture Ucult Complete NO Growth Day 2 09/20/2017 Vitamin D 25 Oh [id number] VITAMIN D, 25 HYDROXY 46.43 ng/mL Comp Metabolic Yyi938 NA 143 mEq/L 08/25/2017 Comp Metabolic Uyn816 K 4.1 mEq/L 08/25/2017 Comp Metabolic Eiw210 CL 102 mEq/L 08/25/2017 Comp Metabolic Vmc873 CO2 33.0 mEq/L 08/25/2017 Comp Metabolic Aop794 ANION GAP 12 08/25/2017 Comp Metabolic Sib359 GLUCOSE 99 mg/dL 08/25/2017 Comp Metabolic Fkd337 Creat 0.8 mg/dL 08/25/2017 Comp Metabolic Nph100 eGFR 86 ml/min/1.73m2 08/25/2017 Comp Metabolic Ufh002 BUN 19 mg/dL 08/25/2017 Comp Metabolic Zol870 B/C Ratio 25.0 Ratio 08/25/2017 Comp Metabolic Fns914 CALCIUM 9.5 mg/dL 08/25/2017 Comp Metabolic Exd599 ALK PHOS 63 U/L 08/25/2017 Comp Metabolic Gwd245 AST(SGOT) 17 U/L 08/25/2017 Comp Metabolic Bud547 ALT(SGPT) 20 U/L 08/25/2017 Comp Metabolic Cpy748 BILI T 0.3 mg/dL 08/25/2017 Comp Metabolic Mvo649 ALBUMIN 4.5 g/dL 08/25/2017 Comp Metabolic Cyk805 TPRO 6.6 g/dL 08/25/2017 Comp Metabolic Iyx888 GLOB 2.1 g/dL 08/25/2017 Comp Metabolic Lpp113 A/G Ratio 2.1 Ratio 08/25/2017 Comp Metabolic Cdv456 Osmo 287 mOsmo 08/25/2017 B12 Hwr108 B12 904.00 pg/ml 08/25/2017 Tsh Ord6 TSH [...] 103.4 fl 08/25/2017 Cbc With Differential Ord2 [place]% 7.5 % 08/25/2017 Cbc With Differential Ord2 [...] 3.65 K/ul 08/25/2017 Cbc With Differential Ord2 [place] ABS# 0.6 K/ul 08/25/2017 Cbc With Differential Ord2 Eos ABS# 0.1 K/ul 08/25/2017 Cbc With Differential Ord2 Baso ABS# 0.0 K/ul 08/25/2017 Tsh Ord6 hTSH II 1.18 uIU/mL 10/12/2016 Comp Metabolic Uzc605 NA 139 mEq/L 10/12/2016 Comp Metabolic Hql056 K 3.5 mEq/L 10/12/2016 Comp Metabolic Pne070 CL 102 mEq/L 10/12/2016 Comp Metabolic Xzm360 CO2 25.0 mEq/L 10/12/2016 Comp Metabolic Ljr130 ANION GAP 16 10/12/2016 Comp Metabolic Cxf876 GLUCOSE 84 mg/dL 10/12/2016 Comp Metabolic Vos740 Creat 0.6 mg/dL 10/12/2016 Comp Metabolic Ujm944 eGFR 105 ml/min/1.73m2 10/12/2016 Comp Metabolic Eaf007 BUN 12 mg/dL 10/12/2016 Comp Metabolic Yew017 B/C Ratio 18.8 Ratio 10/12/2016 Comp Metabolic Pke942 CALCIUM 9.2 mg/dL 10/12/2016 Comp Metabolic Raq202 ALK PHOS 59 U/L 10/12/2016 Comp Metabolic Zit094 AST(SGOT) 21 U/L 10/12/2016 Comp Metabolic Apy609 ALT(SGPT) 27 U/L 10/12/2016 Comp Metabolic Mtm481 BILI T 0.2 mg/dL 10/12/2016 Comp Metabolic Swu434 ALBUMIN 4.4 g/dL 10/12/2016 Comp Metabolic Mmp481 TPRO 6.7 g/dL 10/12/2016 Comp Metabolic Uwy475 GLOB 2.3 g/dL 10/12/2016 Comp Metabolic Sav439 A/G Ratio 1.9 Ratio 10/12/2016 Comp Metabolic Umq086 Osmo 276 mOsmo 10/12/2016 Cbc With Differential [...] 103.0 fl 10/12/2016 Cbc With Differential Ord2 [place]% 8.0 % 10/12/2016 Cbc With Differential Ord2 [...] 3.12 K/ul 10/12/2016 Cbc With Differential Ord2 [place] ABS# 0.8 K/ul 10/12/2016 Cbc With Differential Ord2 Eos ABS# 0.1 K/ul 10/12/2016 Cbc With Differential Ord2 Baso ABS# 0.0 K/ul 10/12/2016 Lipid Ord30 CHOL 194 mg/dL 10/12/2016 Lipid Ord30 HDL 76.0 mg/dl 10/12/2016 Lipid Ord30 TRIG 159 mg/dL 10/12/2016 Lipid Ord30 LDL 86 mg/dL 10/12/2016 Lipid Ord30 C/HDL 2.6 Ratio 10/12/2016 Comp Metabolic Bnc619 NA 139 mEq/L 09/11/2016 Comp Metabolic Vjs175 K 3.6 mEq/L 09/11/2016 Comp Metabolic Lyg038 CL 102 mEq/L 09/11/2016 Comp Metabolic Wtt600 CO2 26.0 mEq/L 09/11/2016 Comp Metabolic Fch966 ANION GAP 15 09/11/2016 Comp Metabolic Htu280 GLUCOSE 90 mg/dL 09/11/2016 Comp Metabolic Qxq286 Creat 0.6 mg/dL 09/11/2016 Comp Metabolic Tgw790 eGFR 111 ml/min/1.73m2 09/11/2016 Comp Metabolic Vhh311 BUN 14 mg/dL 09/11/2016 Comp Metabolic Sfj474 B/C Ratio 23.0 Ratio 09/11/2016 Comp Metabolic Iwg667 CALCIUM 9.0 mg/dL 09/11/2016 Comp Metabolic Vas332 ALK PHOS 56 U/L 09/11/2016 Comp Metabolic Kah175 AST(SGOT) 21 U/L 09/11/2016 Comp Metabolic Xau619 ALT(SGPT) 17 U/L 09/11/2016 Comp Metabolic Ztk419 BILI T 0.2 mg/dL 09/11/2016 Comp Metabolic Pxf994 ALBUMIN 4.1 g/dL 09/11/2016 Comp Metabolic Pec374 TPRO 6.5 g/dL 09/11/2016 Comp Metabolic Gwb232 GLOB 2.4 g/dL 09/11/2016 Comp Metabolic Oxm276 A/G Ratio 1.7 Ratio 09/11/2016 Comp Metabolic Wnw953 Osmo 278 mOsmo 09/11/2016 Tsh Ord6 hTSH [...] 33.0 pg 09/11/2016 Cbc With Differential Ord2 [place]% 8.6 % 09/11/2016 Cbc With Differential Ord2 [...] 3.35 K/ul 09/11/2016 Cbc With Differential Ord2 [place] ABS# 1.0 K/ul 09/11/2016 Cbc With Differential Ord2 Eos ABS# 0.1 K/ul 09/11/2016 Cbc With Differential Ord2 Baso ABS# 0.0 K/ul 09/11/2016 Lipid Ord30 CHOL 168 mg/dL 09/11/2016 Lipid Ord30 HDL 74.0 mg/dl 09/11/2016 Lipid Ord30 TRIG 167 mg/dL 09/11/2016 Lipid Ord30 LDL 61 mg/dL 09/11/2016 Lipid Ord30 C/HDL 2.3 Ratio 09/11/2016 B12 Lsg799 B12 474.00 pg/ml 09/11/2016 B12 Qyl661 B12 827.00 pg/ml 03/02/2016 Cbc With Differential [...] 34.0 pg 02/28/2016 Cbc With Differential Ord2 [place]% 5.4 % 02/28/2016 Cbc With Differential Ord2 [...] 2.08 K/ul 02/28/2016 Cbc With Differential Ord2 [place] ABS# 0.3 K/ul 02/28/2016 Cbc With Differential Ord2 Eos ABS# 0.1 K/ul 02/28/2016 Cbc With Differential Ord2 Baso ABS# 0.0 K/ul 02/28/2016 Sed Rate Ord21 ESR 5 mm/hr 02/28/2016 C-Reactive Protein Qnt Crqnt CRP 0.1 mg/dl 02/28/2016 Comp Metabolic Lsp428 NA 136 mEq/L 02/28/2016 Comp Metabolic Wmj176 K 4.0 mEq/L 02/28/2016 Comp Metabolic Tjp616 CL 103 mEq/L 02/28/2016 Comp Metabolic Gnd674 CO2 27.0 mEq/L 02/28/2016 Comp Metabolic Uxn133 ANION GAP 10 02/28/2016 Comp Metabolic Ipt897 GLUCOSE 138 mg/dL 02/28/2016 Comp Metabolic Kav442 Creat 0.6 mg/dL 02/28/2016 Comp Metabolic Kdx563 eGFR 120 ml/min/1.73m2 02/28/2016 Comp Metabolic Eex050 BUN 15 mg/dL 02/28/2016 Comp Metabolic Ufh658 B/C Ratio 26.3 Ratio 02/28/2016 Comp Metabolic Paq044 CALCIUM 8.8 mg/dL 02/28/2016 Comp Metabolic Spf480 ALK PHOS 58 U/L 02/28/2016 Comp Metabolic Osw377 AST(SGOT) 21 U/L 02/28/2016 Comp Metabolic Epo202 ALT(SGPT) 21 U/L 02/28/2016 Comp Metabolic Tqk485 BILI T 0.2 mg/dL 02/28/2016 Comp Metabolic Fyj180 ALBUMIN 3.8 g/dL 02/28/2016 Comp Metabolic Jsr752 TPRO 5.7 g/dL 02/28/2016 Comp Metabolic Bmu870 GLOB 1.9 g/dL 02/28/2016 Comp Metabolic Ltg088 A/G Ratio 2.0 Ratio 02/28/2016 Comp Metabolic Fpa442 Osmo 275 mOsmo 02/28/2016 Tsh Ord6 hTSH II 1.25 uIU/mL 02/28/2016 B12 Ncm022 B12 >1500.00 pg/ml 01/11/2016 Vitamin D 25 Oh Mrh4517 VITAMIN D, 25 HYDROXY 45.94 ng/mL Comp Metabolic Rtx253 NA 136 mEq/L 03/21/2015 Comp Metabolic Wis291 K 3.8 mEq/L 03/21/2015 Comp Metabolic Aei238 CL 101 mEq/L 03/21/2015 Comp Metabolic Lbm676 CO2 31.0 mEq/L 03/21/2015 Comp Metabolic Hwg794 ANION GAP 8 03/21/2015 Comp Metabolic Fag995 GLUCOSE 101 mg/dL 03/21/2015 Comp Metabolic Yhk449 Creat 0.7 mg/dL 03/21/2015 Comp Metabolic Hni354 eGFR 94 ml/min/1.73m2 03/21/2015 Comp Metabolic Ufi183 BUN 13 mg/dL 03/21/2015 Comp Metabolic Nhv274 B/C Ratio 18.3 Ratio 03/21/2015 Comp Metabolic Cfx618 CALCIUM 9.3 mg/dL 03/21/2015 Comp Metabolic Asg450 ALK PHOS 58 U/L 03/21/2015 Comp Metabolic Uuc310 AST(SGOT) 18 U/L 03/21/2015 Comp Metabolic Ued278 ALT(SGPT) 22 U/L 03/21/2015 Comp Metabolic Sks870 BILI T 0.3 mg/dL 03/21/2015 Comp Metabolic Mnh414 ALBUMIN 4.4 g/dL 03/21/2015 Comp Metabolic Vvu823 TPRO 6.7 g/dL 03/21/2015 Comp Metabolic Lte741 GLOB 2.3 g/dL 03/21/2015 Comp Metabolic Kxq777 A/G Ratio 1.9 Ratio 03/21/2015 Comp Metabolic Yho580 Osmo 272 mOsmo 03/21/2015 %Hba1C Sli644 % HbA1c 42578-0 5.4 % 03/21/2015 %Hba1C Ldr324 Gluc Ave 108 mg/dL 03/21/2015 Cbc With [...] 1.32 uIU/mL 03/21/2015 URINALYSIS NONAUTO W/O SCOPE 04563 Specific [place] 1.025 DateTime(Free Text in Aprima) URINALYSIS NONAUTO W/O SCOPE 71476 PH 5.0 DateTime(Free Text in Aprima) URINALYSIS NONAUTO W/O SCOPE 10960 GLUCOSE NEG DateTime( Free Text in Aprima) URINALYSIS NONAUTO W/O SCOPE 50723 Protein NEG DateTime( Free Text in Aprima) URINALYSIS NONAUTO W/O SCOPE 95959 Blood NEG DateTime(Free Text in Aprima) URINALYSIS NONAUTO W/O SCOPE 73070 Bilirubin NEG DateTime(Free Text in Aprima) URINALYSIS NONAUTO W/O SCOPE 47902 Ketones NEG DateTime( Free Text in Aprima) URINALYSIS NONAUTO W/O SCOPE 71094 Urobilinogen NEG DateTime(Free Text in Aprima) URINALYSIS NONAUTO W/O SCOPE 61181 Nitrite NEG DateTime( Free Text in Aprima) URINALYSIS NONAUTO W/O SCOPE 31251 Leukocytes NEG DateTime(Free Text in Aprima) Review [...] developed 06/22/2011 None Full Exam - General 1993 [...] Procedure Codes Date THER/PROPH/DIAG INJ SC/IM CPT-4: 71348 04/05/2018 VITAMIN B12 INJECTION CPT-4: J3420 04/05/2018 THER/PROPH/DIAG INJ SC/IM CPT-4: 21127 03/10/2018 VITAMIN B12 INJECTION CPT-4: J3420 03/10/2018 THER/PROPH/DIAG INJ SC/IM CPT-4: 54365 10/19/2017 VITAMIN B12 INJECTION CPT-4: J3420 10/19/2017 URINALYSIS NONAUTO W/O SCOPE CPT-4: 03486 09/17/2017 THER/PROPH/DIAG INJ SC/IM CPT-4: 52522 08/19/2017 VITAMIN B12 INJECTION CPT-4: J3420 08/19/2017 THER/PROPH/DIAG INJ SC/IM CPT-4: 75761 07/06/2017 VITAMIN B12 INJECTION CPT-4: J3420 07/06/2017 THER/PROPH/DIAG INJ SC/IM CPT-4: 72244 04/27/2017 VITAMIN B12 INJECTION CPT-4: J3420 04/27/2017 THER/PROPH/DIAG INJ SC/IM CPT-4: 59980 11/17/2016 VITAMIN B12 INJECTION CPT-4: J3420 11/17/2016 THER/PROPH/DIAG INJ SC/IM CPT-4: 21918 10/12/2016 VITAMIN B12 INJECTION CPT-4: J3420 10/12/2016 THER/PROPH/DIAG INJ SC/IM CPT-4: 34430 09/11/2016 VITAMIN B12 INJECTION CPT-4: J3420 09/11/2016 THER/PROPH/DIAG INJ SC/IM CPT-4: 89343 07/03/2016 VITAMIN B12 INJECTION CPT-4: J3420 07/03/2016 VITAMIN B12 INJECTION CPT-4: J3420 04/20/2016 THER/PROPH/DIAG INJ SC/IM CPT-4: 10644 04/20/2016 ADMIN INFLUENZA VIRUS VAC CPT-4: G0008 03/17/2016 IIV4 FLU VACC NO PRESERV ID Formatting Model/CDA Sections, Assigned to/Kathy Lopez SNOMED CT: [id number] CPT-4: [id number] 03/17/2016 THER/PROPH/DIAG INJ SC/IM CPT-4: 95158 02/13/2016 VITAMIN B12 INJECTION CPT-4: J3420 02/13/2016 URINALYSIS NONAUTO W/O SCOPE CPT-4: 93298 12/10/2015 THER/PROPH/DIAG INJ SC/IM CPT-4: 36402 12/02/2015 VITAMIN B12 INJECTION CPT-4: J3420 12/02/2015 PNEUMOCOCCAL VACC [address]: [id number] CPT-4: 30799 12/02/2015 IMMUNIZATION ADMIN CPT -4: 73343 12/02/2015 THER/PROPH/DIAG INJ SC/IM CPT-4: 87077 10/29/2015 VITAMIN B12 INJECTION CPT-4: J3420 10/29/2015 THER/PROPH/DIAG INJ SC/IM CPT-4: 29797 06/10/2015 VITAMIN B12 INJECTION CPT-4: J3420 06/10/2015 THER/PROPH/DIAG INJ SC/IM CPT-4: 15196 02/15/2014 VITAMIN B12 INJECTION CPT-4: J3420 02/15/2014 TRIAMCINOLONE ACET INJ NOS CPT-4: J3301 01/15/2014 VITAMIN B12 INJECTION CPT-4: J3420 01/15/2014 THER/PROPH/DIAG INJ SC/IM CPT-4: 77641 12/04/2013 VITAMIN B12 INJECTION CPT-4: J3420 12/04/2013 THER/PROPH/DIAG INJ SC/IM CPT-4: 27697 07/24/2013 VITAMIN B12 INJECTION CPT-4: J3420 07/24/2013 PRESCRIP TRANSMIT VIA ERX SY CPT-4: G8553 06/12/2013 VITAMIN B12 INJECTION CPT-4: J3420 05/10/2013 THER/PROPH/DIAG INJ SC/IM CPT-4: 11350 05/10/2013 TRIAMCINOLONE ACET INJ NOS CPT-4: J3301 03/06/2013 PRESCRIP TRANSMIT VIA ERX SY CPT-4: G8553 03/06/2013 ADMIN INFLUENZA VIRUS VAC CPT-4: G0008 02/20/2013 FLULAVAL VACC, 3 YRS & >, IM CPT-4: Q2036 02/20/2013 THER/PROPH/DIAG INJ SC/IM CPT-4: 17089 02/20/2013 VITAMIN B12 INJECTION CPT-4: J3420 02/20/2013 THER/PROPH/DIAG INJ SC/IM CPT-4: 38411 12/26/2012 TRIAMCINOLONE ACET INJ NOS CPT-4: J3301 12/26/2012 THER/PROPH/DIAG INJ SC/IM CPT-4: 16120 12/21/2012 VITAMIN B12 INJECTION CPT-4: J3420 12/21/2012 THER/PROPH/DIAG INJ SC/IM CPT-4: 04779 11/16/2012 VITAMIN B12 INJECTION CPT-4: J3420 11/16/2012 TB INTRADERMAL TEST (includes injection fee) CPT-4: 57894 09/26/2012 THER/PROPH/DIAG INJ SC/IM CPT-4: 83283 09/12/2012 VITAMIN B12 INJECTION CPT-4: J3420 09/12/2012 TRIAMCINOLONE ACET INJ NOS CPT-4: J3301 08/11/2012 VITAMIN B12 INJECTION CPT-4: J3420 08/11/2012 THER/PROPH/DIAG INJ SC/IM CPT-4: 47404 08/11/2012 VITAMIN B12 INJECTION CPT-4: J3420 07/13/2012 THER/PROPH/DIAG INJ SC/IM CPT-4: 66193 07/13/2012 THER/PROPH/DIAG INJ SC/IM CPT-4: 17575 05/26/2012 TRIAMCINOLONE ACET INJ NOS CPT-4: J3301 05/26/2012 VITAMIN B12 INJECTION CPT-4: J3420 05/26/2012 ADMIN INFLUENZA VIRUS VAC CPT-4: G0008 03/02/2012 FLULAVAL VACC, 3 YRS & >, IM CPT-4: Q2036 03/02/2012 PRESCRIP TRANSMIT VIA ERX SY CPT-4: G8553 02/15/2012 TRIAMCINOLONE ACET INJ NOS CPT-4: J3301 01/13/2012 VITAMIN B12 INJECTION CPT-4: J3420 12/21/2011 VITAMIN B12 INJECTION CPT-4: J3420 10/30/2011 THER/PROPH/DIAG INJ SC/IM CPT-4: 04493 10/30/2011 THER/PROPH/DIAG INJ SC/IM CPT-4: 50018 10/02/2011 VITAMIN B12 INJECTION CPT-4: J3420 10/02/2011 TRIAMCINOLONE ACET INJ NOS CPT-4: J3301 10/02/2011 PRESCRIP TRANSMIT VIA ERX SY CPT-4: G8553 10/02/2011 VITAMIN B12 INJECTION CPT-4: J3420 09/01/2011 URINALYSIS NONAUTO W/O SCOPE CPT-4: 38941 08/03/2011 VITAMIN B12 INJECTION CPT-4: J3420 08/03/2011 THER/PROPH/DIAG INJ SC/IM CPT-4: 15482 08/03/2011 THER/PROPH/DIAG INJ SC/IM CPT-4: 58023 06/11/2011 VITAMIN B12 INJECTION CPT-4: J3420 06/11/2011 ROUTINE VENIPUNCTURE CPT-4: 03123 06/11/2011 THER/PROPH/DIAG INJ SC/IM CPT-4: 49151 02/23/2011 VITAMIN B12 INJECTION CPT-4: J3420 02/23/2011 ADMIN INFLUENZA VIRUS VAC CPT-4: G0008 02/23/2011 FLULAVAL VACC, 3 YRS & >, IM CPT-4: Q2036 02/23/2011 Vital Signs Date Vital 04/05/2018 Blood Pressure 1: 144/80 Code : 8480-6 BMI: 30.9 Code : 54692-8 Heart Rate 1 : 118 bpm Height: 5'9" SpO2: 98% Weight: 209 lbs 03/10/2018 Blood Pressure 1: 128/82 Code : 8480-6 Blood Pressure 1: 162/74 Code: 8480-6 BMI: 30.3 Code: 53634-0 Heart Rate 1: 101 bpm Height: 5'9" SpO2: 98% Weight: 205 lbs 01/13/2018 Blood Pressure 1: 102/78 Code : 8480-6 BMI: 31.6 Code : 73406-7 Heart Rate 1 : 103 bpm Height: 5'9" SpO2: 98% Weight: 214 lbs 11/25/2017 Blood Pressure 1: 114/80 Code : 8480-6 BMI: 30.3 Code : 54141-8 Heart Rate 1 : 112 bpm Height: 5'9" SpO2: 98% Weight: 205 lbs 10/19/2017 Blood Pressure 1: 110/70 Code : 8480-6 BMI: 30.7 Code : 28092-6 Heart Rate 1 : 102 bpm Height: 5'9" SpO2: 97% Weight: 208 lbs 09/17/2017 Blood Pressure 1: 132/78 Code : 8480-6 BMI: 30.4 Code : 50781-2 Heart Rate 1 : 117 bpm Height: 5'9" SpO2: 97% Weight: 206 lbs 09/06/2017 Blood Pressure 1: 110/78 Code : 8480-6 BMI: 29.8 Code : 67672-3 Heart Rate 1 : 106 bpm Height: 5'9" SpO2: 97% Weight: 202 lbs 08/19/2017 Blood Pressure 1: 136/72 Code : 8480-6 BMI: 30.4 Code : 27902-5 Heart Rate 1 : 108 bpm Height: 5'9" SpO2: 94% Weight: 206 lbs 07/06/2017 Blood Pressure 1: 154/80 Code : 8480-6 Heart Rate 1: 111 bpm Height: 5'9" Respiratory Rate: 20 bpm SpO2: 98% Weight: 04/27/2017 Blood Pressure 1: 138/78 Code : 8480-6 BMI: 30.4 Code : 97564-6 Heart Rate 1 : 96 bpm Height: 5'9" SpO2: 97% Weight: 206 lbs 04/06/2017 Blood Pressure 1: 108/80 Code : 8480-6 BMI: 31.0 Code : 35514-7 Heart Rate 1 : 96 bpm Height: 5'9" SpO2: 98% Weight: 210 lbs 02/25/2017 Blood Pressure 1: 132/80 Code : 8480-6 BMI: 32.5 Code : 38087-8 Heart Rate 1 : 112 bpm Height: 5'9" SpO2: 94% Weight: 220 lbs 01/19/2017 Blood Pressure 1: 122/68 Code : 8480-6 Heart Rate 1: 100 bpm Height: 5'9" SpO2: 95% Weight: 11/17/2016 Blood Pressure 1: 132/74 Code : 8480-6 BMI: 32.2 Code : 81081-1 Heart Rate 1 : 98 bpm Height: 5'9" SpO2: 94% Weight: 218 lbs 10/12/2016 Blood Pressure 1: 130/82 Code : 8480-6 BMI: 32.2 Code : 78172-1 Heart Rate 1 : 97 bpm Height: 5'9" SpO2: 94% Weight: 218 lbs 08/18/2016 Blood Pressure 1: 132/78 Code : 8480-6 BMI: 32.0 Code : 41853-8 Heart Rate 1 : 113 bpm Height: 5'9" SpO2: 98% Weight: 217 lbs 08/07/2016 Blood Pressure 1: 126/70 Code : 8480-6 BMI: 33.1 Code : 62570-3 Heart Rate 1 : 102 bpm Height: 5'9" SpO2: 94% Weight: 224 lbs 07/31/2016 Blood Pressure 1: 134/66 Code : 8480-6 BMI: 31.7 Code : 14524-3 Heart Rate 1 : 97 bpm Height: 5'9" SpO2: 95% Temperature: 36.4 (C) / 97.6 (F) Weight: 215 lbs 07/15/2016 Blood Pressure 1: 126/62 Code : 8480-6 Heart Rate 1: 105 bpm Height: 5'9" Weight: 07/07/2016 Blood Pressure 1: 106/54 Code : 8480-6 BMI: 31.7 Code : 38840-6 Heart Rate 1 : 93 bpm Height: 5'9" SpO2: 97% Weight: 215 lbs 06/25/2016 Heart Rate 1: 99 bpm Height: 5'9" SpO2: 95% Weight: 05/07/2016 Blood Pressure 1: 124/86 Code : 8480-6 BMI: 28.5 Code : 07090-5 Heart Rate 1 : 100 bpm Height: 5'9" SpO2: 96% Weight: 193 lbs 04/20/2016 Blood Pressure 1: 120/80 Code : 8480-6 BMI: 28.5 Code : 49972-4 Heart Rate 1 : 86 bpm Height: 5'9" SpO2: 96% Weight: 193 lbs 03/17/2016 Blood Pressure 1: 120/70 Code : 8480-6 BMI: 29.1 Code : 37399-3 Heart Rate 1 : 103 bpm Height: 5'9" SpO2: 96% Weight: 197 lbs 03/05/2016 Blood Pressure 1: 124/78 Code : 8480-6 Heart Rate 1: 82 bpm Height: 5'9" SpO2: 94% Weight: 02/28/2016 Blood Pressure 1: 94/50 Code : 8480-6 Heart Rate 1: 91 bpm Height: 5'9" SpO2: 94% Weight: 02/13/2016 Blood Pressure 1: 128/86 Code : 8480-6 BMI: 28.6 Code : 22896-8 Heart Rate 1 : 100 bpm Height: 5'9" SpO2: 96% Weight: 194 lbs 08/15/2015 Blood Pressure 1: 128/68 Code : 8480-6 BMI: 27.3 Code : 69574-0 Heart Rate 1 : 72 bpm Height: 5'9" SpO2: 92% Weight: 185 lbs 07/25/2015 Blood Pressure 1: 122/76 Code : 8480-6 BMI: 27.5 Code : 99579-9 Heart Rate 1 : 70 bpm Height: 5'9" SpO2: 94% Weight: 186 lbs 06/25/2015 Blood Pressure 1: 118/54 Code : 8480-6 BMI: 26.7 Code : 65910-1 Heart Rate 1 : 98 bpm Height: 5'9" SpO2: 97% Weight: 181 lbs 06/10/2015 Blood Pressure 1: 110/68 Code : 8480-6 Heart Rate 1: 80 bpm Height: SpO2: 98% Weight: 05/08/2015 Blood Pressure 1: 120/68 Code : 8480-6 BMI: 27.5 Code : 57274-2 Heart Rate 1 : 95 bpm Height: 5'9" SpO2: 96% Weight: 186 lbs 03/26/2015 Blood Pressure 1: 120/80 Code : 8480-6 Heart Rate 1: 102 bpm Respiratory Rate: 18 bpm SpO2: 92% Weight: 186 lbs 03/15/2015 Blood Pressure 1: 122/64 Code : 8480-6 BMI: 26.6 Code : 47172-1 Heart Rate 1 : 96 bpm Height: 5'9" SpO2: 96% Weight: 180 lbs 01/10/2015 Blood Pressure 1: 120/68 Code : 8480-6 BMI: 27.5 Code : 84143-8 Heart Rate 1 : 90 bpm Height: 5'9" Weight: 186 lbs 12/21/2014 Blood Pressure 1: 118/78 Code : 8480-6 BMI: 27.2 Code : 79369-3 Heart Rate 1 : 61 bpm Height: 5'9" SpO2: 97% Weight: 184 lbs 10/05/2014 Blood Pressure 1: 118/64 Code : 8480-6 BMI: 27.0 Code : 42132-9 Heart Rate 1 : 76 bpm Height: 5'9" Weight: 183 lbs 06/14/2014 Blood Pressure 1: 120/78 Code : 8480-6 BMI: 26.6 Code : 60825-7 Heart Rate 1 : 96 bpm Height: 5'9" Weight: 180 lbs 01/19/2014 Blood Pressure 1: 128/76 Code : 8480-6 BMI: 27.3 Code : 78281-1 Heart Rate 1 : 82 bpm Height: 5'9" Weight: 185 lbs 01/15/2014 Blood Pressure 1: 110/62 Code : 8480-6 BMI: 27.9 Code : 60449-9 Heart Rate 1 : 80 bpm Height: 5'9" Weight: 189 lbs 10/20/2013 Blood Pressure 1: 112/62 Code : 8480-6 BMI: 30.1 Code : 64036-3 Heart Rate 1 : 76 bpm Height: [...] Code : 8480-6 BMI: 30.6 Code : 81477-4 Heart Rate 1 : 92 bpm Height: 5'9" Weight: 207 lbs 05/23/2013 Blood Pressure 1: 120/78 Code : 8480-6 Heart Rate 1: 84 bpm Weight: 05/19/2013 Blood Pressure 1: 126/78 Code : 8480-6 BMI: 30.3 Code : 94274-5 Heart Rate 1 : 88 bpm Height: 5'9" Weight: 205 lbs 05/16/2013 Blood Pressure 1: 126/66 Code : 8480-6 BMI: 30.3 Code : 00567-3 Heart Rate 1 : 84 bpm Height: 5'9" Weight: 205 lbs 03/06/2013 Blood Pressure 1: 128/76 Code : 8480-6 BMI: 30.6 Code : 78318-0 Heart Rate 1 : 88 bpm Height: 5'9" Weight: 207 lbs 12/26/2012 Blood Pressure 1: 142/70 Code : 8480-6 BMI: 29.6 Code : 45647-1 Heart Rate 1 : 100 bpm Height: 5'9" Weight: 200 lbs 8 oz 11/21/2012 Blood Pressure 1: 132/80 Code : 8480-6 BMI: 29.5 Code : 74253-4 Heart Rate 1 : 96 bpm Height: [...] Code : 8480-6 BMI: 29.2 Code : 52019-3 Heart Rate 1 : 64 bpm Height: 5'9" Respiratory Rate: 16 bpm Weight: 198 lbs 03/11/2011 Blood Pressure 1: 106/60 Code : 8480-6 BMI: 28.8 Code : 31061-4 Heart Rate 1 : 100 bpm Height: 5'9" SpO2: 97% Weight: 195 lbs 02/12/2011 Weight: 192 lbs 01/29/2011 Blood Pressure 1: 100/64 Code : 8480-6 BMI: 28.1 Code : 96123-5 Heart Rate 1 : 100 bpm Height: [...] Hospital Follow Up _ pain 05/16/2013 left leam-jaim-oadou to left knee-applying neosporin and covering with [...] pt to have a 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 PATIENT, LEVEL IV Diagnosis: Essential (primary) hypertension[ICD10: I10] Diagnosis: Chronic pain syndrome[ICD10: G89.4] Diagnosis: Vitamin B12 deficiency anemia due to intrinsic factor deficiency[ ICD10: D51.0] Aicha Thompson MD, [facility] CPT-4: 76636 04/05/2018 ([id number]) 77131 EST. PATIENT, LEVEL IV Diagnosis: Essential (primary) hypertension[ICD10: I10] Diagnosis: Generalized anxiety disorder[ICD10: F41.1] Diagnosis: Major depressive disorder, recurrent, mild[ICD10: F33.0] Diagnosis: Vitamin B12 deficiency anemia due to intrinsic factor deficiency[ ICD10: D51.0] [facility] CPT-4: 39725 03/10/2018 ([id number]) 79429 EST. PATIENT, LEVEL IV Diagnosis: Headache[ICD10: R51] Diagnosis: Obstructive sleep apnea (adult) (pediatric)[ICD10: G47.33] Diagnosis: Cervicalgia[ICD10: M54.2] Valentina Thompson MD, [facility] CPT-4: 50134 01/13/2018 ([id number]) 21235 EST. PATIENT, LEVEL IV Diagnosis: Headache[ICD10: R51] Diagnosis: Spinal stenosis, cervical region[ICD10: M48.02] Diagnosis: Major depressive disorder, recurrent, mild[ICD10: F33.0] Valentina Thompson MD , [facility] CPT-4: 44154 11/25/2017 ([id number]) 09885 EST. PATIENT, LEVEL III Diagnosis: Allergic contact dermatitis due to plants, except food[ICD10: L23.7] Diagnosis: Vitamin B12 deficiency anemia due to intrinsic factor deficiency[ ICD10: D51.0] Valentina Thompson MD, [facility] CPT-4: 97332 10/19/2017 ([id number]) 94979 EST. PATIENT, LEVEL IV Diagnosis: Generalized abdominal pain[ICD10: R10.84] Diagnosis: Urinary tract infection, site not specified[ICD10: N39.0] Diagnosis: Hypokalemia[ICD10: E87.6] Valentina Thompson MD, [facility] CPT-4: 57186 09/17/2017 ([id number]) 49442 EST. PATIENT, LEVEL IV Diagnosis: Chronic pain syndrome[ICD10: G89.4] Diagnosis: Pain in left knee[ICD10: M25.562] Diagnosis: Pain in right knee[ICD10: M25.561] Diagnosis: Essential (primary) hypertension[ICD10: I10] Aicha Thompson MD, [facility] CPT-4: 85293 09/06/2017 ([id number]) 12541 EST. PATIENT, LEVEL IV Diagnosis: Headache[ICD10: R51] Diagnosis: Chronic pain syndrome[ICD10: G89.4] Diagnosis: Mixed hyperlipidemia[ICD10: E78.2] Diagnosis: Vitamin D deficiency, unspecified[ICD10: E55.9] Diagnosis: Vitamin B12 deficiency anemia, unspecified[ICD10: D51.9] Valentina Thompson MD , [facility] CPT-4: 55730 08/19/2017 25500 EST. PATIENT, LEVEL V Diagnosis: Essential (primary) hypertension[ICD10: I10] Diagnosis: Vitamin B12 deficiency anemia due to intrinsic factor deficiency[ ICD10: D51.0] Diagnosis: Chronic pain syndrome[ICD10: G89.4] Aicha Thompson MD, [facility] CPT-4: 32293 07/06/2017 ([id number]) 63691 EST. PATIENT, LEVEL IV Diagnosis: Cervicalgia[ICD10: M54.2] Diagnosis: Laceration without foreign body of scalp, initial encounter[ICD10: S01.01XA] Diagnosis: Vitamin B12 deficiency anemia due to intrinsic factor deficiency[ ICD10: D51.0] Valentina Thompson MD, [facility] CPT-4: 89737 04/27/2017 64725 EST. PATIENT, LEVEL II Diagnosis: Residual hemorrhoidal skin tags[ICD10: K64.4] Valentina Thompson MD, [facility] CPT-4: 79526 04/06/2017 ([id number]) 96192 EST. PATIENT, LEVEL III Diagnosis: Pain in right foot[ICD10: M79.671] Diagnosis: Pain in left foot[ICD10: M79.672] Diagnosis: Cervicalgia[ICD10: M54.2] Valentina Thompson MD, [facility] CPT-4: 79130 02/25/2017 ([id number]) 78306 EST. PATIENT, LEVEL IV Diagnosis: Essential (primary) hypertension[ICD10: I10] Diagnosis: Chronic pain syndrome[ICD10: G89.4] Diagnosis: Spinal stenosis, cervical region[ICD10: M48.02] Diagnosis: Pain in right leg[ICD10: M79.604] Valentina Thompson MD, [facility] CPT-4: 44607 01/19/2017 ([id number]) 55366 EST. PATIENT, LEVEL III Diagnosis: Pain in right foot[ICD10: M79.671] Diagnosis: Pain in left foot[ICD10: M79.672] Diagnosis: Chronic pain syndrome[ICD10: G89.4] Diagnosis: Vitamin B12 deficiency anemia, unspecified[ICD10: D51.9] Valentina Thompson MD , [facility] CPT-4: 82829 11/17/2016 ([id number]) 45325 EST. PATIENT, LEVEL IV Diagnosis: Essential (primary) hypertension[ICD10: I10] Diagnosis: Chronic pain syndrome[ICD10: G89.4] Diagnosis: Foot drop, right foot[ICD10: M21.371] Diagnosis: Foot drop, left foot[ICD10: M21.372] Diagnosis: Other abnormalities of gait and mobility[ICD10: R26.89] Diagnosis: Vitamin B12 deficiency anemia due to intrinsic factor deficiency[ ICD10: D51.0] Aicha Thompson MD, [facility] CPT-4: 29910 10/12/2016 ([id number]) 09051 EST. PATIENT, LEVEL III Diagnosis: Pain in right ankle and joints of right foot[ICD10: M25.571] Diagnosis: Superficial foreign body, right foot, initial encounter[ICD10: S90.851A] Valentina Thompson MD, [facility] CPT-4: 25009 ([id number]) 82207 EST. PATIENT, LEVEL III Diagnosis: Candidiasis of vulva and vagina[ICD10: B37.3] Diagnosis: Vitamin B12 deficiency anemia, unspecified[ICD10: D51.9] Valentina Thompson MD , [facility] CPT-4: 47639 08/07/2016 ([id number]) 78086 EST. PATIENT, LEVEL III Diagnosis: Spinal stenosis, cervical region[ICD10: M48.02] Diagnosis: Pain in right ankle and joints of right foot[ICD10: M25.571] Diagnosis: Pain in left ankle and joints of left foot[ICD10: M25.572] Valentina Thompson MD, [facility] CPT-4: 20640 07/31/2016 39519 EST. PATIENT, LEVEL III Diagnosis: Cervicalgia[ICD10: M54.2] Diagnosis: Chronic pain syndrome[ICD10: G89.4] Beatriz Thompson MD, [facility] CPT-4: 24432 07/15/2016 ([id number]) 10428 EST. PATIENT, LEVEL III Diagnosis: Spinal stenosis, cervical region[ICD10: M48.02] Diagnosis: Low back pain[ICD10: M54.5] Valentina Thompson MD, [facility] CPT-4: 14535 07/07/2016 ([id number]) 22379 EST. PATIENT, LEVEL IV Diagnosis: Cervicalgia[ICD10: M54.2] Diagnosis: Essential (primary) hypertension[ICD10: I10] Diagnosis: Mixed hyperlipidemia[ICD10: E78.2] Aicha Thompson MD, [facility] CPT-4: 18543 06/25/2016 ([id number]) 22366 EST. PATIENT, LEVEL III Diagnosis: Cervicalgia[ICD10: M54.2] Valentina Thompson MD, [facility] CPT-4: 33384 05/07/2016 ([id number]) 39147 EST. PATIENT, LEVEL III Diagnosis: Pleurodynia[ICD10: R07.81] Diagnosis: Generalized anxiety disorder[ICD10: F41.1] Diagnosis: Vitamin B12 deficiency anemia due to intrinsic factor deficiency[ ICD10: D51.0] Diagnosis: Hypoxemia[ICD10: R09.02] Valentina Thompson MD, [facility] CPT-4: 80770 04/20/2016 ([id number]) 89906 EST. PATIENT, LEVEL III Diagnosis: Generalized anxiety disorder[ICD10: F41.1] Diagnosis: Radiculopathy, lumbar region[ICD10: M54.16] Valentina Thompson MD, [facility] CPT-4: 62708 03/17/2016 17105 EST. PATIENT, LEVEL IV Diagnosis: Chronic pain syndrome[ICD10: G89.4] Diagnosis: Radiculopathy, lumbar region[ICD10: M54.16] Diagnosis: Generalized anxiety disorder[ICD10: F41.1] Beatriz Thompson MD, [facility] CPT-4: 31859 03/05/2016 ([id number]) 91500 EST. PATIENT, LEVEL III Diagnosis: Radiculopathy, lumbar region[ICD10: M54.16] Diagnosis: Generalized anxiety disorder[ICD10: F41.1] Valentina Thompson MD, [facility] CPT-4: 65152 02/28/2016 ([id number]) 74961 EST. 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 PATIENT, LEVEL III Diagnosis: Headache[ICD10: R51] Diagnosis: Cervicalgia[ICD10: M54.2] Valentina Thompson MD, [facility] CPT-4: 63230 08/15/2015 ([id number]) 53851 EST. PATIENT, LEVEL III Diagnosis: Generalized anxiety disorder[ICD10: F41.1] Diagnosis: Cervicalgia[ICD10: M54.2] Valentina Thompson MD, [facility] CPT-4: 68636 07/25/2015 ([id number]) 25969 EST. PATIENT, LEVEL IV Diagnosis: Pain in right foot[ICD10: M79.671] Diagnosis: Unspecified osteoarthritis, unspecified site[ICD10: M19.90] Diagnosis: Pain in left ankle and joints of left foot[ICD10: M25.572] Diagnosis: Pain in right ankle and joints of right foot[ICD10: M25.571] Valentina Thompson MD, [facility] CPT-4: 96022 06/25/2015 ([id number]) 11810 EST. 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 PATIENT, LEVEL IV Diagnosis: Essential (primary) hypertension[ICD10: I10] Diagnosis: Pain in right foot[ICD10: M79.671] Diagnosis: Pain in left foot[ICD10: M79.672] Diagnosis: Anxiety disorder, unspecified[ICD10: F41.9] Aicha Thompson MD, [facility] CPT-4: 42187 05/08/2015 ([id number]) 97024 EST. PATIENT, LEVEL III Diagnosis: Generalized anxiety disorder[ICD10: F41.1] Diagnosis: Essential (primary) hypertension[ICD10: I10] Diagnosis: Other myositis, multiple sites[ICD10: M60.89] Valentina Thompson MD, [facility] CPT-4: 22798 03/26/2015 38342 EST. PATIENT, LEVEL III Diagnosis: Chronic pain syndrome[ICD10: G89.4] Diagnosis: Unspecified osteoarthritis, unspecified site[ICD10: M19.90] Diagnosis: Pain in right foot[ICD10: M79.671] Diagnosis: Pain in left foot[ICD10: M79.672] Beatriz Thompson MD, [facility] CPT -4: 57302 03/15/2015 ([id number]) 14357 EST. PATIENT, LEVEL III Diagnosis: Abrasion of knee, left[ICD9: 916.0] Valentina Thompson MD, [facility] CPT-4: 64687 01/10/2015 ([id number]) 12539 EST. PATIENT, LEVEL IV Diagnosis: CHRONIC PAIN SYNDROME[ICD9: 338.4] Diagnosis: MYALGIA AND MYOSITIS[ICD9: 729.1] Diagnosis: OSTEOARTH NOS-UNSPEC[ICD9: 715.90] Diagnosis: DEPRESSIVE DISORDER NEC[ICD9: 311] Diagnosis: GENERALIZED ANXIETY DISEASE[ICD9: 300.02] Valentina Thompson MD, [facility] CPT-4: 60255 12/21/2014 ([id number]) 57495 EST. PATIENT, LEVEL IV Diagnosis: GENERALIZED ANXIETY DISEASE[ICD9: 300.02] Diagnosis: DEPRESSIVE DISORDER NEC[ICD9: 311] Diagnosis: ESSENTIAL HYPERTENSION[ICD9: 401.9] Valentina Thompson MD, [facility] CPT-4: 03037 10/05/2014 ([id number]) 42471 EST. PATIENT, LEVEL III Diagnosis: Knee pain, right[ICD9: 719.46] Diagnosis: CHRONIC PAIN SYNDROME[ICD9: 338.4] Diagnosis: Ankle pain[ICD9: 719.47] Aicha Thompson MD, [facility] CPT-4: 26494 06/14/2014 ([id number]) 12450 EST. PATIENT, LEVEL III Diagnosis: Constipation[ICD9: 564.00] Diagnosis: Hemorrhoids[ICD9: 455.6] Valentina Thompson MD [facility] CPT-4: 07247 01/19/2014 ([id number]) 99804 EST. PATIENT, LEVEL III Diagnosis: Ulcer of knee[ICD9: 707.19] Diagnosis: Hemorrhoids[ICD9: 455.6] Diagnosis: B12 deficiency[ICD9: 266.2] Diagnosis: ALLERGIC RHINITIS[ICD9: 477.9] Valentina Thompson MD, [facility] CPT-4: 95153 01/15/2014 ([id number]) 31262 EST. PATIENT, LEVEL IV Diagnosis: EDEMA[ICD9: 782.3] Diagnosis: Open wound of knee[ICD9: 891.0] Diagnosis: CHRONIC PAIN SYNDROME[ICD9: 338.4] Diagnosis: ANEMIA[ICD9: 285.9] Valentina Thompson MD, [facility] CPT-4: 59972 10/20/2013 ([id number]) 45130 EST. PATIENT, LEVEL III Diagnosis: ULCER OTH PART LOW LIMB[ICD9: 707.19] Valentina Thompson MD [facility] CPT-4: 04449 07/24/2013 ([id number]) 41174 EST. PATIENT, LEVEL III Diagnosis: ULCER OTH PART LOW LIMB[ICD9: 707.19] Valentina Thompson MD, [facility] CPT-4: 79325 06/23/2013 ([id number]) 38156 EST. PATIENT, LEVEL III Diagnosis: ULCER OTH PART LOW LIMB[ICD9: 707.19] [facility] CPT-4: 02295 06/12/2013 ([id number]) Miscellaneous no charge Diagnosis: ULCER OTH PART LOW LIMB[ICD9: 707.19] [facility] CPT-4: 09344 05/29/2013 ([id number]) 52811 EST. PATIENT, LEVEL III Diagnosis: ULCER OTH PART LOW LIMB[ICD9: 707.19] Valentina Thompson MD, [facility] CPT-4: 55993 05/23/2013 ([id number]) Miscellaneous no charge Diagnosis: ULCER OTH PART LOW LIMB[ICD9: 707.19] Valentina Thompson MD [facility] CPT-4: 66173 05/19/2013 ([id number]) 86337 EST. PATIENT, LEVEL III Diagnosis: Ulcer of knee[ICD9: 707.19] Valentina Thompson MD [facility] CPT-4: 60125 05/16/2013 ([id number]) 98987 EST. PATIENT, LEVEL III Diagnosis: ALLERGIC RHINITIS[ICD9: 477.9] REMIGIO Zhang MD CPT- 4: 26894 03/06/2013 ([id number]) 93959 EST. PATIENT, LEVEL IV Diagnosis: Ankle pain[ICD9: 719.47] Diagnosis: ALLERGIC RHINITIS[ICD9: 477.9] Diagnosis: ESSENTIAL HYPERTENSION[SNOMED: 00665664] Aicha Thompson MD [facility] CPT-4: 31159 12/26/2012 ([id number]) 20169 EST. PATIENT, LEVEL IV Diagnosis: ESSENTIAL HYPERTENSION[SNOMED: 56064265] Diagnosis: JOINT PAIN-L/LEG[ICD9: 719.46] Diagnosis: GENERALIZED ANXIETY DISEASE[ICD9: 300.02] Diagnosis: UNSPECIFIED ASTHMA[ICD9: 493.90] Aicha Thompson MD [facility] CPT-4: 74569 11/21/2012 ([id number]) Miscellaneous no charge Diagnosis: Encounter for tuberculin skin test[ICD9: V74.1] Aicha Thompson MD [facility] CPT-4: 77742 09/28/2012 ([id number]) 16690 EST. PATIENT, LEVEL IV Diagnosis: FEVER NOS[ICD9: 780.60] Diagnosis: PNEUMONIA (CAP)[ICD9: 486] Aicha Thompson MD [facility] CPT- 4: 42734 07/21/2012 ([id number]) 03834 EST. PATIENT, LEVEL IV Diagnosis: JOINT PAIN-ANKLE[ICD9: 719.47] Diagnosis: MUSCLE/LIGAMENT DIS NEC[ICD9: 728.89] Diagnosis: Fibromyalgia muscle pain[ICD9: 729.1] Aicha Thompson MD, [facility] CPT-4: 64952 07/13/2012 ([id number]) 73758 EST. PATIENT, LEVEL IV Diagnosis: Right foot pain[ICD9: 729.5] Diagnosis: Plantar fasciitis[ICD9: 728.71] Diagnosis: GENERALIZED ANXIETY DISEASE[ICD9: 300.02] Diagnosis: B-COMPLEX DEFIC NEC[ICD9: 266.2] Aicha Thompson MD, [facility] CPT-4: 91955 05/26/2012 ([id number]) 79735 EST. PATIENT, LEVEL IV Diagnosis: Chest wall pain[ICD9: 786.52] Diagnosis: Esophageal reflux[ICD9: 530.81] Diagnosis: ALLERGIC RHINITIS[ICD9: 477.9] Valentina Thompson MD, [facility] CPT-4: 56204 02/15/2012 ([id number]) 53048 EST. PATIENT, LEVEL IV Diagnosis: ALLERGIC RHINITIS[ICD9: 477.9] Diagnosis: HYPERLIPIDEMIA[ICD9: 272.4] Aicha Thompson MD, [facility] CPT- 4: 84219 01/13/2012 ([id number]) 43965 EST. PATIENT, LEVEL IV Diagnosis: JOINT PAIN-L/LEG[ICD9: 719.46] Diagnosis: UNSPECIFIED ASTHMA[ICD9: 493.90] Diagnosis: Costalchondritis[ICD9: 733.6] Aicha Thompson MD, [facility] CPT- 4: 95637 12/21/2011 ([id number]) 73448 EST. PATIENT, LEVEL IV Diagnosis: Hyperlipidemia[ICD9: 272.4] Diagnosis: ALLERGIC RHINITIS[ICD9: 477.9] Diagnosis: B12 deficiency[ICD9: 266.2] Diagnosis: Hypopotassemia[ICD9: 276.8] Valentina Thompson MD, [facility] CPT-4: 32206 10/02/2011 ([id number]) 84790 EST. PATIENT, LEVEL IV Diagnosis: Pain in joint involving forearm[ICD9: 719.43] Diagnosis: Neck pain[ICD9: 723.1] Diagnosis: Fall on same level from slipping, tripping, or stumbling[ICD9: E885.9 ] Diagnosis: B12 deficiency[ICD9: 266.2] Aicha Thompson MD, [facility] CPT- 4: 69366 09/01/2011 ([id number]) 81333 EST. PATIENT, LEVEL IV Diagnosis: Vulvovaginitis[ICD9: 616.10] Diagnosis: OVERWEIGHT[ICD9: 278.02] Diagnosis: MYALGIA AND MYOSITIS[ICD9: 729.1] Aicha Thompson MD, [facility] CPT-4: 94791 08/03/2011 ([id number]) 70764 EST. PATIENT, LEVEL IV Diagnosis: MUSCLE/LIGAMENT DIS NEC[ICD9: 728.89] Diagnosis: CHRONIC PAIN SYNDROME[ICD9: 338.4] Diagnosis: Weight gain[ICD9: 783.1] Aicha Thompson MD, [facility] CPT-4: 63501 06/29/2011 52094 EST. PATIENT, LEVEL IV Diagnosis: Wrist pain[ICD9: 719.43] Diagnosis: Knee pain, right[ICD9: 719.46] Diagnosis: Fall on same level from slipping, tripping, or stumbling[ICD9: E885.9 ] Aicha Thompson MD, [facility] CPT-4: 59581 06/22/2011 [id number] EST. PATIENT, LEVEL IV Diagnosis: MUSCLE/LIGAMENT DIS NEC[ICD9: 728.89] Diagnosis: JOINT PAIN-L/LEG[ICD9: 719.46] Diagnosis: OSTEOARTH NOS-UNSPEC[ICD9: 715.90] Diagnosis: B12 deficiency[ICD9: 266.2] Aicha Thompson MD, [facility] CPT- 4: 24477 06/11/2011 [id number] EST. PATIENT, LEVEL IV Diagnosis: Knee pain, bilateral[ICD9: 719.46] Diagnosis: Pain, joint, ankle and foot[ICD9: 719.47] Diagnosis: DEPRESSIVE DISORDER NEC[ICD9: 311] Diagnosis: Overweight (BMI 25.0-29.9)[ICD9: 278.02] Diagnosis: 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[ICD9: V65.3] Aicha Thompson MD, [facility] CPT-4: 76698 03/11/2011 20708 EST. PATIENT, LEVEL IV Diagnosis: Knee pain, bilateral[ICD9: 719.46] Diagnosis: Iliotibial band syndrome[ICD9: 728.89] Diagnosis: Fibromyalgia syndrome[ICD9: 729.1] [facility] CPT-4: 50421 02/12/2011 13632 EST. PATIENT, LEVEL IV Diagnosis: FALL FROM SLIPPING[ICD9: E885.9] Diagnosis: Pain in joint involving lower leg[ICD9: 719.46] Diagnosis: ESOPHAGEAL REFLUX[ICD9: 530.81] Diagnosis: ESSENTIAL HYPERTENSION[SNOMED: 31581457] [facility] CPT-4: 01881 01/29/2011 Plan of Care Planned Activity Notes [...] the hydrocodone. 04/05/2018 [facility]ment[phone] ([facility] Complex 04/05/2018 Patient Education: Patient Medication Summary Completed 04/05/2018 Appointment: [facility] (15 min) Moderate 03/17/2018 Visit Plan: [...] weeks 03/10/2018 Appointment: Valentina Smith WPtel: 1015 [phone] [place] (15 min) Moderate 03/10/2018 Appointment: Aicha Thompson WPtel: 1010 [facility] (15 min) Moderate 03/10/2018 Patient Education: [...] appt scheduled 01/13/2018 Appointment: Valentina Smith WPtel: 101 [phone] [place] (15 min) Moderate 01/13/2018 Patient Education: [...] current medications. 11/25/2017 Appointment: Valentina Smith WPtel: [address] [place] [address] (30 min) Complex 11/25/2017 Patient Education: Patient Medication Summary Completed 11/25/2017 Visit Plan: Contact dermatitis-discussed natural and expected course of this diagnosis and to alert me if symptoms do not resolve or if any worse. RX sent to patient's pharmacy and instructed on use. 10/19/2017 Appointment: Valentina Smith WPtel: [address] [place], [place] [phone] (15 min) Moderate 10/19/2017 Patient Education: Patient Medication Summary Completed 10/19/2017 Appointment: Valentina Smith WPtel: [address] [place], [place] [phone] (30 min) Complex 09/27/2017 Visit Plan: Generalized abd iuzl-YZG-rwrxoy cipro/flagyl- culture urine-recommend patient follow up with Dr Grace for an appt if abdominal pain does not improve Low potassium-check labs 09/17/2017 Visit Plan: Generalized abd sevz-EBD-musqjn cipro/flagyl- culture urine-recommend patient follow up with Dr Grace for an appt if abdominal pain does not improve Low potassium-check labs 09/17/2017 Appointment: Valentina Smith WPtel: [facility] [address] (30 min) Complex 09/17/2017 Patient Education: Patient [...] over-medication. 09/06/2017 Appointment: Aicha Thompson WPtel: [phone] [facility] (30 min) Complex 09/06/2017 Patient Education: Patient Medication Summary Completed 09/06/2017 Appointment: Aicha Thompson WPtel: 1015 [facility] [place] (30 min) Complex 09/02/2017 Appointment: Aicha Thompson WPtel: 1015 [facility] (30 min) Complex 08/23/2017 Visit Plan: Headaches-neck pain-patient is to let us know which neurologist she wants to see B12 def-injection today in the office Hyperlipidemia-check labs Vitamin D def-check level 08/19/2017 Appointment: [phone] [place] (30 min) Complex 08/19/2017 Patient Education: [...] the list of the neurologists that her battery container tester has recommended and we would consider a referral to a different provider. After I left the room insisting to Racieldeanna that I had spent as much time [...] the list of the neurologists that her battery container tester has recommended and we would consider a [...] psychiatrist. 07/06/2017 Appointment: Aicha Thompson WPtel: 1015 [facility] [place] (30 min) Complex 07/06/2017 Patient Education: Patient Medication Summary Completed 07/06/2017 Appointment: Aicha Thompson WPtel: [phone] [facility] [place] (30 min) Complex 07/05/2017 Appointment: Valentina Smith WPtel: 1015 [phone] [place] (30 min) Complex 05/17/2017 Appointment: Beatriz Mojica [facility]el[facility] [place] (30 min) Complex 05/14/2017 Visit Plan: Neck vhtt-qqcxtbn-giuchwz to continue f/u with [facility]-her symptoms have [...] of plan. 04/27/2017 Appointment: [phone] [place] (30 min) Complex 04/27/2017 Patient Education: Patient Medication Summary Completed 04/27/2017 Patient Education: Obesity Completed 04/27/2017 Visit Plan: Hemorrhoidal skin tag-no acute inflammation today -may use hemorrhoid cream as directed as needed-call with any concerns, bleeding, etc. 04/06/2017 Appointment: Valentina Smith WPtel: [phone] [phone] (30 min) Complex 04/06/2017 Patient Education: Patient Medication Summary Completed 04/06/2017 Patient Education: Obesity Completed 04/06/2017 Visit Plan: Bilateral foot and ankle pain-now has AFOs-we have made her several appt with podiatrists which she has not kept-recommend patient call Dr Saunders and reschedule appt with him. Neck pain-[facility] appt next week-KEEP APPOINTMENT! 02/25/2017 Appointment: Valentina Smith WPtel: [address] [place], [place] [phone] (30 min) Complex 02/25/2017 Patient Education: Patient [...] podiatry for evaluation-wants to see someone in [place] 11/17/2016 Appointment: Valentina Smith WPtel: [address] [place], [place] [phone] (30 min) Complex 11/17/2016 Patient Education: Patient Medication Summary Completed 11/17/2016 Appointment: Valentina Smith WPtel: [address] [place], [place] [phone] (30 min) Complex 11/16/2016 Visit Plan: [place] referral - pt to indicate when and who she would like to go to - for neck and back AFO for both legs - [facility] in [place], [place]- fax #[phone] pt has been seen by pricing specialist - need brace because of bilateral [...] over- medication. 10/12/2016 Appointment: Aicha Thompson WPtel: [facility]4 [facility] (30 min) Complex 10/12/2016 Patient Education: Patient Medication Summary Completed 10/12/2016 Patient Education: Obesity Completed 10/12/2016 Appointment: Injection 09/11/2016 Patient Education: Patient Medication Summary Completed 09/11/2016 Visit Plan: Right ankle pain/instability-xray negative- will obtain MRI ankle Ulcer right foot-instructed patient on wound care and the importance of keeping wound clean-f/u in 10-14 days for re-evaluation 08/18/2016 Appointment: Valentina Smith WPtel: [facility]2 [phone] (30 min) Complex 08/18/2016 Patient Education: Patient Medication Summary Completed 08/18/2016 Patient Education: Obesity Completed 08/18/2016 Care Plan: X-RAY EXAM NECK SPINE 2-3 VW LOINC : 47178-5 Pending 08/15/2016 Visit Plan: Vaginal yeast infection-RX for diflucan B12 deficiency-check labs 08/07/2016 Appointment: Valentina Smith WPtel: [facility]2 [phone] [place] (30 min) Complex 08/07/2016 Patient Education: Patient Medication Summary Completed 08/07/2016 Visit Plan: Cervical stenosis-saw Dr Ramey-Dr Ramey is going to send her to for further evaluation Bilateral ankle pain-xray ankles 07/31/2016 Appointment: Valentina Smith WPtel: [facility]5 [phone] (30 min) Complex 07/31/2016 Patient Education: Patient Medication Summary Completed 07/31/2016 Patient Education: Obesity Completed 07/31/2016 Visit Plan: Neck pain after fall - Will check x-ray, Pt is to follow up with Dr. Perez. Pt is to notify clinic if symptoms do not improve , if they worsen, or with any questions or concerns. 07/15/2016 Appointment: Beatriz Mojica WPtel: [phone] [facility] (30 min) Complex 07/15/2016 Patient [...] Appointment: Injection 07/03/2016 Appointment: Valentina Smith WPtel: [facility]5 [phone] (30 min) Complex 07/03/2016 Patient [...] despite PT. 05/07/2016 Appointment: Valent[facility] Smith [facility]Ptel: 101 [phone] (30 min) Complex 05/07/2016 Patient Education: Patient Medication Summary Completed 05/07/2016 Patient Education: Obesity Completed 05/07/2016 Care Plan: [facility] 04184[facility]2 Pending 05/07/2016 Visit Plan: Chronic Depression and [...] symptoms 04/20/2016 Appointment: Valent[facility] Smith [facility]Ptel: [phone] [place] (30 min) Complex 04/20/2016 Patient Education: Patient Medication Summary Completed 04/20/2016 Appointment: Valentina Smith WPtel: [address] [place], [place] [phone] (30 min) Complex 03/19/2016 Visit Plan: Chronic [...] Dr Ibarra 03/17/2016 Appointment: Valentina Smith WPtel: [facility]0 [phone] (30 min) Complex 03/17/2016 Patient Education: Patient [...] current medications. 02/28/2016 Appointment: Valentina Smith WPtel: [facility]3 [phone] (15 min) Moderate 02/28/2016 Patient Education: Patient Medication Summary Completed 02/28/2016 Appointment: Valent[facility]Ptel[phone] (30 min) Complex 02/27/2016 Visit Plan: Hypertension [...] level 02/13/2016 Appointment: Valentina Smith WPtel: [phone] [phone] (30 min) Complex 02/13/2016 Patient Education: Patient Medication Summary Completed 02/13/2016 Patient Education: Obesity Completed 02/13/2016 Care Plan: Cbc With Differential Pending 02/13/2016 Care Plan: Tsh Pending 02/13/2016 Care Plan: Lipid Pending 02/13/2016 Care Plan: Comp Metabolic patient to come fasting Pending 02/13/2016 Care Plan: Vitamin D 25 Oh Cancelled 02/13/2016 Patient Education: Patient Medication Summary Completed 02/03/2016 Care Plan: SCREENINGMAMMOGRAPHYDIGITAL [facility] : 81776-3 Pending 02/03/2016 Appointment: Injection 01/15/2016 Appointment: Lab [...] Plan: X-RAY EXAM NECK SPINE 2-3 VW [facility] : 01305-4 Ordered 08/15/2015 Visit Plan: Anxiety-fairly well controlled-does [...] feet and ankle instability/pain. Refer patient to [facility] for aqua therapy. Patient verbalized understanding [...] side effects. 05/08/2015 Appointment: Aicha Thompson WPtel: [facility] (30 min) Complex 05/08/2015 Patient Education: [...] Care Plan: COMPLETE CBC AUTOMATED LOINC : 04583-4 Ordered 10/05/2014 Visit Plan: Chronic Pain Syndrome - pt has chronic pain - has been maintained on current medications, has not sought out other medications , only uses PRN pain medications as directed, and understands the consequences of over-medication. Right hip/knee/ankle pain-improving since last fall- continue physical therapy exercises-continue supportive shoes and use walker for stability 06/14/2014 Appointment: Valentina Smith WPtel: [address] [place] [phone] Follow up 06/14/2014 Patient Education: Patient Medication [...] the instructions given to her from her heel emery buffer and she is to call him if her constipation is uncontrolled. Hemorrhoids-use suppositories as directed. 01/19/2014 Patient Education: Patient Medication Summary Completed 01/19/2014 Visit Plan: Ulcer of udvn-srofdug-rgbbp instructions provided today and instructed patient to return as directed-keep wound clean and dry. Hemorrhoids-refill anusol suppositories and use as directed B12 deficiency-b12 injection today in the office Pogachoyk-grtttztxeqht-eiwtwwq injection today in the office-continue oral medications [...] Anemia-check labs 10/20/2013 Appointment: Valentina Smith WPtel: [address] [place], [place] [phone] [place] Other 10/20/2013 Patient Education: Patient Medication Summary Completed 10/20/2013 Appointment: Valentina Smith WPtel: [address] [place], [place] [phone] [place] Injection 08/21/2013 Appointment: Aicha Thompson WPtel: [address] [place], [place] [phone] Follow up 07/31/2013 Visit Plan: Ulcer of knee healing-silver nitrate to granulation tissue-instructed patient to monitor and call if it does not completely heal for appointment-instructed on wound care-patient and mother verbalized understanding of plan. 07/24/2013 Patient Education: Patient Medication Summary Completed 07/24/2013 Patient Education: Patient Medication Summary Completed 07/24/2013 Appointment: Valentina Smith WPtel: [address] [place], [place] [phone] [place] Follow up 07/03/2013 Visit Plan: Ulcer-left knee-fibrous tissue removed from wound bed to reveal pink granulation tissue-wound cleansed and dressing applied. Instructed patient on wound care. Return in 10 days for follow up. 06/23/2013 Appointment: Valentina Smith WPtel: [address] [place], [place] [phone] [place] Follow up 06/23/2013 Patient Education: Patient Medication Summary Completed 06/23/2013 Appointment: Valentina Smith WPtel: [address] [place], [place] [phone] Follow up 06/22/2013 Appointment: Aicha Thompson WPtel: [address] [place], [place] [phone] Follow up 06/22/2013 Visit Plan: Ulcer-left knee-fibrous tissue removed from wound bed to reveal pink granulation tissue-wound cleansed and dressing applied. Instructed patient on wound care. Return in 10 days for follow up. 06/12/2013 Appointment: Valentina Smith WPtel: [address] [place], [place] [phone] Follow up 06/12/2013 Patient Education: Patient Medication Summary Completed 06/12/2013 Appointment: Aicha Thompson WPtel: [address] [place], [place] [phone] Follow up 06/08/2013 Visit Plan: Ulcer left cjxc-mcnxdlbt-s/u in 10 days 05/29/2013 Appointment: Valentina Smith WPtel: [address] [place], [place] [phone] Follow up 05/29/2013 Patient Education: Patient Medication Summary Completed 05/29/2013 Visit Plan: Ulcer of knee-sharp debridement today in the office--wound care instructions provided for patient-patient and mother verbalized understanding of plan. Follow up next week. 05/23/2013 Appointment: Valentina Smith WPtel: [address] [place], [place] [phone] Follow up 05/23/2013 Patient Education: Patient Medication Summary Completed 05/23/2013 Appointment: Valentina Smith WPtel: [address] [place], [place] [phone] Follow up 05/22/2013 Visit Plan: Ulcer of knee-wound care instructions provided for patient-patient and mother verbalized understanding of plan. 05/19/2013 Appointment: [facility] mSith [facility]Ptel[phone] Other 05/19/2013 Patient Education: Patient Medication Summary Completed 05/19/2013 Visit Plan: Ulcer of knee-fibrous tissue debrided today in the office--wound care instructions provided for patient-return in 1 week for follow up. 05/16/2013 Appointment: Valentina Smith WPtel: [facility]5 [facility] follow up 05/16/2013 Patient Education: Patient Medication Summary Completed 05/16/2013 Appointment: Aicha Thompson WPtel: [address] [place], [place] [phone] Injection 05/10/2013 Patient Education: Patient Medication Summary [...] the office. 03/06/2013 Appointment: Valentina Smith WPtel: [facility]5 [phone] Other 03/06/2013 Patient Education: Patient Medication Summary Completed 03/06/2013 Appointment: Aicha Thompson WPtel: [address] [place], [place] [phone] Nurse Visit 02/20/2013 Patient Education: Patient Medication Summary Completed 02/20/2013 Appointment: Aicha Thompson WPtel: [address] [place], [place] [phone] Follow up 01/16/2013 Visit Plan: Joint pain [...] concerns. 12/26/2012 Appointment: [facility] Thompson [facility]Ptel: [phone] [place] Other 12/26/2012 Patient Education: Patient Medication Summary Completed 12/26/2012 Patient Education: Hypertension Completed 12/26/2012 Appointment: [facility] Thompson [facility]Ptel: [phone] Lab Draw 12/21/2012 Patient Education: Patient [...] changes 11/21/2012 Appointment: Aicha Thompson WPtel: [facility] [facility] [place] Follow up 11/21/2012 Patient Education: Patient Medication Summary Completed 11/21/2012 Patient Education: Hypertension Completed 11/21/2012 Appointment: Aicha Thompson WPtel: [facility] [place] Injection 11/16/2012 Patient Education: Patient Medication Summary Completed 11/16/2012 Appointment: Aicha Thompson WPtel: [facility] [facility] [place] Injection 09/28/2012 Patient Education: Patient Medication Summary Completed 09/28/2012 Appointment: Aicha Thompson WPtel: [facility] [facility] [place] Injection 09/26/2012 Patient Education: Patient Medication Summary Completed 09/26/2012 Appointment: Aicha Thompson WPtel: [address] [facility] [place] Injection 09/12/2012 Patient Education: Patient Medication Summary Completed 09/12/2012 Appointment: Aicha Thompson WPtel: [phone] [facility] [place] Injection 08/11/2012 Patient Education: Patient [...] management sparingly. 07/13/2012 Appointment: Aicha Thompson WPtel: [address] [place] [phone] Other 07/13/2012 Patient Education: Patient Medication Summary [...] in medications 05/26/2012 Appointment: Valentina Smith WPtel: [facility]5 [phone] [place] [address] Other 05/26/2012 Patient Education: Patient Medication Summary Completed 05/26/2012 Appointment: Valentina Smith WPtel: [address] [place], [place] [phone] Sick 03/15/2012 Appointment: Aicha Thompson WPtel: [facility]5 [facility] Injection 03/02/2012 Patient Education: Patient Medication [...] the medication. 02/15/2012 Appointment: Valentina Smith WPtel: [address] [place] [address] Other 02/15/2012 Patient Education: Patient Medication Summary [...] to medications 01/13/2012 Appointment: Valentina Smith WPtel: [address] [place] [address] Other 01/13/2012 Patient Education: Patient Medication Summary Completed 01/13/2012 Appointment: Valentina Smith WPtel: [address] [place] [address] Other 01/06/2012 Visit Plan: Asthma - chest xray and symbicort sample today. Patellofemoral syndrome- recommended physical therapy. Costochondritis - recommended pt to use antiinflammatories as able for treatment of rib/sternum irritation and for pt to call if her symptoms do not improve. 12/21/2011 Appointment: Aicha Thompson WPtel: [facility] [address] Other 12/21/2011 Patient Education: Patient Medication [...] the office. 10/02/2011 Appointment: Valentina Smith WPtel: [address] [place] [address] Other 10/02/2011 Patient Education: Patient Medication Summary Completed 10/02/2011 Visit Plan: Pain in joints-arms, elbows-recent fall- discussed natural and expected course of this diagnosis and to alert me if symptoms do not follow expected course, or if any worse. Patient verbalized understanding. Neck kwpo-dlphztm-secwzxpid physical therapy-patient declined at this time-going to see the sdc teacher this afternoon. B12 deficiency-B12 injection today in the office. 09/01/2011 Appointment: Valentina Smith WPtel: [address] [place] [address] Other 09/01/2011 Patient Education: Patient Medication Summary [...] management sparingly. 08/03/2011 Appointment: Aicha Thompson WPtel: [facility] Follow up 08/03/2011 Patient Education: Patient [...] HER PAIN. 06/29/2011 Appointment: Aicha Thompson WPtel: [facility] Follow up 06/29/2011 Patient Education: Patient Medication Summary Completed 06/29/2011 Appointment: Aicha Thompson WPtel: [facility]5 [facility] [place] Other 06/24/2011 Visit Plan: Right knee pain, bilateral wrist pain-recent fall-discussed natural and expected course of this diagnosis and to alert me if symptoms do not follow expected course, or if any worse. Patient verbalized understanding. Recommend follow up with Ortho physician if pain persists. 06/22/2011 Appointment: Valentina Smith WPtel: [phone] [place] Other 06/22/2011 Patient Education: Patient Medication Summary Completed 06/22/2011 Visit Plan: Knee and Ankle pain and instability- recommend re-evaluation by an lead generation specialist at [facility] the [address] [place] [address]. Pt has been recommended to go back to Dr. Corbin at [facility] the [address] [place] [address] as my office did not get a [...] of fibromyalgia. 06/11/2011 Appointment: Aicha Thompson WPtel: [facility]6 [facility] Injection 06/11/2011 Appointment: Aicha Thompson WPtel: [facility] Other 06/11/2011 Patient Education: Patient Medication Summary Completed 06/11/2011 Visit Plan: Knee and Ankle pain and instability- recommend evaluation by an lead generation specialist at [facility]. [...] physical appearance. 03/11/2011 Appointment: Aicha Thompson WPtel: [facility] Other 03/11/2011 Patient Education: Patient Medication Summary Completed 03/11/2011 Patient Education: .Amazing charts Diabetic meal planning guide Completed 03/11 Appointment: [place] A[facility]a WPtel: [facility] [place] Injection 02/23/2011 Patient Education: Patient Medication Summary Completed 02/23/2011 Visit Plan: iliotibial band syndrome - continue with current treatment per sdc teacher. I have recommend use of biofreeze to the right outer leg. I have given pt stretching exercises for home. Fibromyalgia - chronic - continue with exercise, heat, and prn pain medication. Knee pain - apparently resolved prior to her appointment today. No change in present management, call if pain returns. 02/12/2011 Appointment: Aicha Thompson WPtel: 1016 [facility] Other 02/12/2011 Patient Education: Patient Medication [...] Patient Medication Summary Completed 01/29/2011 Instructions Comment sleep study -[facility] [...] as appropriate-patient verbalized understanding of plan. . Ulcer-left knee-fibrous [...] directed, and understands the consequences of over-medication. Racielitha is to continue to taper down on [...] weakness/pain-recommend physical therapy for strengthening Dr Saunders -[facility] . Bilateral foot and ankle pain-now has AFOs-we have made her several appt with podiatrists which she has not kept-recommend patient call Dr Saunders and reschedule appt with him. Neck pain-KU appt next week-KEEP APPOINTMENT! . [place] referral - pt to indicate when and who she would like to go to - for neck and back AFO for both legs - [facility] in [place], [place]- fax # [phone] pt has been seen by pricing specialist - need brace because of bilateral [...] any concerns, bleeding, etc. . Ulcer left lbap-rcviappe-r/u in 10 days MAKE APPOINTMENT NKECHI KELLY/DR IBARRA TO FOLLOW UP WITH LUMBAR [...] change in blood pressure readings at home. MRI RIGHT ANKLE NEOSPORIN TO SORE RIGHT FOOT . Right ankle pain/instability-xray negative-will obtain MRI ankle Ulcer right foot-instructed patient on wound care and the importance of keeping wound clean-f/u in 10-14 days for re-evaluation . Anxiety-fairly well controlled-does have added stress with family-no change in medications-call if symptoms worsen Neck pain-recommend rest, ice and anti inflammatories as directed-call if symptoms do not resolve or if any worse. Patient verbalized understanding of plan. . Hypertension - [...] B12 injection today in the office . Hypertension - well controlled - continue [...] labs Vitamin d deficiency-check vitamin d level Use suppositories every night for the next 3 nights . Constipation - uncontrolled - I have discussed with the patient the need for adequate fiber and water intake to facilitate soft, easily passed stools. The pt noted understanding of our conversation. I have also recommended that she continue to follow the instructions given to her from her heel emery buffer and she is to call him if her constipation is uncontrolled. Hemorrhoids-use suppositories as directed. . Cervicalgia-MRI neck without contrast for further evaluation for further evaluation of persistent neck pain despite PT. . iliotibial band syndrome - continue with current treatment per sdc teacher. I have recommend use of biofreeze [...] and instability- recommend re- evaluation by an lead generation specialist at [facility] the [address] [place] [address]. Pt has been recommended to go back to Dr. Corbin at [facility] of the [address] [place] [address] as my office did not get a [...] savella for treatment of fibromyalgia. REFER TO [facility] FOR PODIATRY EVALUATION DX BILATERAL FOOT AND ANKLE PAIN . Bilateral foot pain-foot drop-patient getting AFOs-refer to podiatry for evaluation-wants to see someone in [place] [facility] NECK AND BRAIN [facility] [...] the list of the neurologists that her battery container tester has recommended and we would consider a [...] the list of the neurologists that her battery container tester has recommended and we would consider a [...] if any worse. Patient verbalized understanding. Neck jzhg-aclfumu-boxjvbowd physical therapy-patient declined at this time- going to see the sdc teacher this afternoon. B12 deficiency-B12 injection today [...] today in the office. . Ulcer of zrvu-fpezuqo-ykayl instructions provided today and instructed patient to return as directed-keep wound clean and dry. Hemorrhoids-refill anusol suppositories and use as directed B12 deficiency-b12 injection today in the office Liarmfack-ayicmlrswwkl-caxbrak injection today in the office-continue oral medications as directed . Ulcer of knee healing-silver nitrate to granulation tissue-instructed patient to monitor and call if it does not completely heal for appointment-instructed on wound care-patient and mother verbalized understanding of plan. . Right [...] regimen-no changes in medications Dr. Ramey - [facility] . Hypertension - well controlled [...] pain and instability- recommend evaluation by an lead generation specialist at [facility]. [...] call if her symptoms do not improve. May use tylenol as needed for pain [...] pressure readings at home. . Generalized abd xwmc-TRT-lhnnnr cipro/flagyl-culture urine-recommend patient follow up with Dr Grace for an appt if abdominal pain does not improve Low potassium-check labs . Generalized abd ltbh-BSB-enconx cipro/flagyl-culture urine-recommend patient follow up with Dr [...] for acute changes B12 injection . Neck vsmf-uoemrrs-mquoizd to continue f/u with [facility]-her symptoms have [...] her mother verbalized understanding of plan. . Ulcer of knee-sharp debridement today in [...] NOT LET OTHERS KNOW OF HER PAIN. CHECK LABS WILL GET REPORT FROM DR [...] situational exposure. No change in current medications. B12 INJECTION TODAY . Chronic Depression and [...] with Dr. Grace before her next infusion Increase NIACIN 500mg to 2 tabs at [...] (may be called three old goats) at [facility] and home. . Hypertension - well controlled [...]
--- OUTSIDE RECORDS SUMMARY | 2018-08-03 08:53 | XMS REPORT | CCD ---
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 Name Role Phone PP Unavailable CCM Unavailable Summary Purpose Interface Exchange Insurance Providers Payer name Policy type / Coverage type Covered green party ID Effective Begin Date Effective End Date WPS Medicare Part B Medicare Part B [id number] 2013 Unknown [facility] Medicare Part B [id number] 2013 Unknown Family history Grandmother Diagnosis Age [...] status Unknown 01/29/[address]: 774848253 Never smoker 01/29/[address]: 930937 Currently drinks alcohol mixed drink before bed [...] sleep apnea Unknown Active 05/14/2011 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 03/11/2011 Unknown Overweight [...] Active sleep apnea Unknown 05/14/2011 Active 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 03/11/2011 Active Overweight (BMI [...] Fill Instructions tramadol 50 mg tablet RxNorm: 730731 1-2 Tablet(s) PO TID as needed 03/10/2018 04/08/2018 Inactive cyanocobalamin (vit B-12) 1,000 mcg/mL injection solution RxNorm: 396813 1 Milliliter(s) Inj 03/10/2018 03/10/2018 Inactive Seroquel 100 mg tablet RxNorm: 066926 1 TABLET(S) PO BID 201703/01/2019 Active TAKE 1 TABLET BY MOUTH TWICE DAILY hydrocodone 10 mg-acetaminophen 325 mg tablet RxNorm: 340730 1-2 Tablet(s) PO Q6 as needed for pain 02/21/2018 03/09/2018 Inactive Ventolin HFA 90 mcg/actuation aerosol inhaler RxNorm: 803317 1 OR 2 PUFF(S) INH Q6 PRN NEEDED 01/13/2018 07/11/2018 Active trazodone 100 mg tablet RxNorm: 785567 TABLET(S) TAKE 2 TABLETS BY MOUTH EVERY NIGHT AT BEDTIME 12/07/2017 09/02/2018 Active hydrocodone 10 mg-acetaminophen 325 mg tablet RxNorm: 348720 1-2 Tablet(s) PO Q6 as needed for pain 12/03/2017 12/25/2017 Inactive Ventolin HFA 90 mcg/actuation aerosol inhaler RxNorm: 860943 1 OR 2 PUFF(S) INH Q6 PRN NEEDED 11/26/2017 01/12/2018 Inactive Savella 100 mg tablet RxNorm: 911792 TABLET(S) PO TAKE 1 TABLET BY MOUTH DAILY 11/23/2017 No Stop Date Active Effexor XR 150 mg capsule,extended release RxNorm: 888461 1 CAPSULE(S) PO BID 1 CAPSULE(S) PO BID 11/23/2017 04/21/2018 Active TAKE 1 CAPSULE BY MOUTH TWICE DAILY diazepam 10 mg tablet RxNorm: 475863 Tablet(s) TAKE 1 TABLET BY MOUTH FOUR TIMES DAILY NEEDED 11/23/2017 03/09/2018 Inactive Claritin-D 12 Hour 5 mg-120 mg tablet,extended release RxNorm: 9771424 Tablet(s) as needed TAKE 1 TABLET BY MOUTH TWICE DAILY NEEDED 201701/21/2018 Inactive Valium 10 mg tablet RxNorm: 590376 1 Tablet(s) QID as needed 11/16/2017 01/14/2018 Inactive metoprolol tartrate 25 mg tablet RxNorm: 980656 TABLET(S) TABLET(S) 1/2 TABLET(S) PO BID TAKE 1/2 TABLET BY MOUTH TWICE DAILY 11/12/2017 No Stop Date Active pantoprazole 40 mg tablet,delayed release RxNorm: 289896 TAKE 1 TABLET BY MOUTH EVERY DAY 11/12/2017 05/10/2018 Active betamethasone dipropionate 0.05 % topical cream RxNorm: 023741 1 APPLICATION TOP BID 10/22/2017 11/04/2017 Inactive tramadol 50 mg tablet RxNorm: 118674 1-2 Tablet(s) PO TID as needed 10/20/2017 01/16/2018 Inactive prednisone 10 mg tablets in a dose pack RxNorm: 890133 1 Tablet(s) PO UD 10/19/2017 10/24/2017 Inactive 6-5-4-3-2-1 cyanocobalamin (vit B-12) 1,000 mcg/mL injection solution RxNorm: 936511 1 Milliliter(s) Inj 10/19/2017 10/19/2017 Inactive betamethasone dipropionate 0.05 % topical cream RxNorm: 863655 1 Application TOP BID 10/19/2017 10/21/2017 Inactive hydrocodone 10 mg-acetaminophen 325 mg tablet RxNorm: 955283 1-2 Tablet(s) PO Q6 as needed for pain 10/19/2017 11/10/2017 Inactive Effexor XR 150 mg capsule,extended release RxNorm: 344558 1 Capsule(s) PO BID 1 CAPSULE(S) PO BID 10/19/2017 11/22/2017 Inactive TAKE 1 CAPSULE BY MOUTH TWICE DAILY prednisone 5 mg tablet RxNorm: 757690 1 Tablet(s) PO UD 2017 No Stop Date Active Cipro 500 mg tablet RxNorm: 513185 1 Tablet(s) PO BID 201709/26/2017 Inactive Flagyl 500 mg tablet RxNorm: 319359 1 Tablet(s) PO TID 201709/26/2017 Inactive prednisone 10 mg tablet RxNorm: 215192 1 Tablet(s) PO UD 201709/16/2017 Inactive 2 tabs daily x 3 days 1 tab daily x 3 daily then resume usual 5mg daily hydrocodone 10 mg-acetaminophen 325 mg tablet RxNorm: 966964 1-2 Tablet(s) PO Q6 as needed for pain 09/10/2017 10/02/2017 Inactive Savella 100 mg tablet RxNorm: 323568 TABLET(S) PO TAKE 1 TABLET BY MOUTH DAILY 08/31/2017 No Stop Date Active cyanocobalamin (vit B-12) 1,000 mcg/mL injection solution RxNorm: 770124 1 Milliliter(s) Inj 08/19/2017 08/19/2017 Inactive pantoprazole 40 mg tablet,delayed release RxNorm: 491028 TAKE 1 TABLET BY MOUTH EVERY DAY 08/17/2017 11/11/2017 Inactive trazodone 100 mg tablet RxNorm: 551635 TABLET(S) TAKE 2 TABLETS BY MOUTH EVERY NIGHT AT BEDTIME 08/17/2017 12/06/2017 Inactive Ventolin HFA 90 mcg/actuation aerosol inhaler RxNorm: 767259 1 OR 2 PUFF(S) INH Q6 PRN NEEDED 08/11/2017 01/07/2018 Inactive Advair Diskus 250 mcg-50 mcg/dose powder for inhalation RxNorm: 5789575 1 Puff(s) INH BID 08/11/2017 12/08/2017 Inactive Advair Diskus 250 mcg-50 mcg/dose powder for inhalation RxNorm: 3519575 1 PUFF(S) INH BID 08/11/2017 11/08/2017 Inactive Ventolin HFA 90 mcg/actuation aerosol inhaler RxNorm: 915205 1 OR 2 PUFF(S) INH Q6 PRN NEEDED 08/11/2017 11/25/2017 Inactive hydrocodone 10 mg-acetaminophen 325 mg tablet RxNorm: 431965 1-2 Tablet(s) PO Q6 as needed for pain 08/03/2017 08/25/2017 Inactive tramadol 50 mg tablet RxNorm: 033760 1-2 Tablet(s) PO TID as needed 07/26/2017 09/22/2017 Inactive Valium 10 mg tablet RxNorm: 906010 1 Tablet(s) QID as needed 07/09/2017 09/06/2017 Inactive Effexor XR 150 mg capsule,extended release RxNorm: 625291 Capsule(s) 1 CAPSULE(S) PO BID 07/07/2017 10/18/2017 Inactive TAKE 1 CAPSULE BY MOUTH TWICE DAILY metoprolol tartrate 25 mg tablet RxNorm: 750729 Tablet(s) TABLET(S) 1/2 TABLET(S) PO BID TAKE 1/2 TABLET BY MOUTH TWICE DAILY 07/07/2017 11/11/2017 Inactive diazepam 10 mg tablet RxNorm: 179367 Tablet(s) TAKE 1 TABLET BY MOUTH FOUR TIMES DAILY NEEDED 07/07/2017 08/02/2017 Inactive cyanocobalamin (vit B-12) 1,000 mcg/mL injection solution RxNorm: 238881 1 Milliliter(s) Inj 07/06/2017 07/06/2017 Inactive tramadol 50 mg tablet RxNorm: 753362 1-2 Tablet(s) PO TID as needed 06/21/2017 09/17/2017 Inactive hydrocodone 10 mg-acetaminophen 325 mg tablet RxNorm: 441862 1-2 Tablet(s) PO Q6 as needed for pain 06/17/2017 07/09/2017 Inactive cyclobenzaprine 10 mg tablet RxNorm: 497692 TAKE 1 TABLET BY MOUTH THREE TIMES DAILY NEEDED FOR MUSCLE SPASMS 06/08/2017 08/31/2018 Active Lipitor 20 mg tablet RxNorm: 053513 1 TABLET(S) PO DAILY 201706/02/2018 Active TAKE ONE TABLET BY MOUTH EVERY NIGHT AT BEDTIME Claritin-D 12 Hour 5 mg-120 mg tablet,extended release RxNorm: 1447840 Tablet(s) as needed TAKE 1 TABLET BY MOUTH TWICE DAILY NEEDED 201709/04/2017 Inactive trazodone 100 mg tablet RxNorm: 988010 TABLET(S) TAKE 2 TABLETS BY MOUTH EVERY NIGHT AT BEDTIME 05/17/2017 08/14/2017 Inactive cyclobenzaprine 5 mg tablet RxNorm: 678077 Tablet(s) PO TAKE 1 TABLET BY MOUTH THREE TIMES DAILY NEEDED FOR MUSCLE SPASMS (New dose has not been sent to pharmacy) 05/11/2017 No Stop Date Active Valium 5 mg tablet RxNorm: 499944 1 Tablet(s) PO QID as needed (New dose has not been sent to pharmacy) 05/11/2017 No Stop Date Active diazepam 10 mg tablet RxNorm: 216719 TAKE 1 TABLET BY MOUTH FOUR TIMES DAILY NEEDED 04/28/2017 05/27/2017 Inactive hydrocodone 10 mg-acetaminophen 325 mg tablet RxNorm: 293231 1-2 Tablet(s) PO Q6 as needed for pain 04/27/2017 05/19/2017 Inactive cyanocobalamin (vit B-12) 1,000 mcg/mL injection solution RxNorm: 653735 1 Milliliter(s) Inj 04/27/2017 04/27/2017 Inactive hydrocodone 10 mg-acetaminophen 325 mg tablet RxNorm: 504566 1-2 Tablet(s) PO Q6 as needed for pain 03/17/2017 04/08/2017 Inactive Seroquel 100 mg tablet RxNorm: 335298 1 TABLET(S) PO BID 201603/06/2018 Inactive TAKE 1 TABLET BY MOUTH TWICE DAILY Valium 10 mg tablet RxNorm: 261109 1 Tablet(s) QID as needed 03/05/2017 05/03/2017 Inactive Claritin-D 12 Hour 5 mg-120 mg tablet,extended release RxNorm: 4016296 Tablet(s) as needed TAKE 1 TABLET BY MOUTH TWICE DAILY NEEDED 201604/25/2017 Inactive pantoprazole 40 mg tablet,delayed release RxNorm: 518690 TAKE 1 TABLET BY MOUTH EVERY DAY 02/26/2017 08/16/2017 Inactive tramadol 50 mg tablet RxNorm: 028284 1-2 Tablet(s) PO TID as needed 02/17/2017 05/17/2017 Inactive hydrocodone 10 mg-acetaminophen 325 mg tablet RxNorm: 267509 1-2 Tablet(s) PO Q6 as needed for pain 02/17/2017 03/11/2017 Inactive Valium 10 mg tablet RxNorm: 271563 1 Tablet(s) QID as needed 02/02/2017 03/03/2017 Inactive (Response to an electronic controlled substance refill request - RxReferenceNumber: [id number]|1|0|1) nystatin 100,000 unit/gram topical powder RxNorm: 261953 1 APPLICATION TOP QID UNTIL HEALED 01/21/2017 No Stop Date Active Advair Diskus 250 mcg-50 mcg/dose powder for inhalation RxNorm: 4104929 1 Puff(s) INH BID 01/21/2017 05/20/2017 Inactive hydrocodone 10 mg-acetaminophen 325 mg tablet RxNorm: 593863 1-2 Tablet(s) PO Q6 as needed for pain 01/21/2017 02/11/2017 Inactive metoprolol tartrate 25 mg tablet RxNorm: 699377 TABLET(S) 1/2 TABLET(S) PO BID TAKE 1/2 TABLET BY MOUTH TWICE DAILY 01/18/2017 07/06/2017 Inactive Effexor XR 150 mg capsule,extended release RxNorm: 231013 1 CAPSULE(S) PO BID 01/11/2017 07/06/2017 Inactive TAKE 1 CAPSULE BY MOUTH TWICE DAILY Effexor XR 150 mg capsule,extended release RxNorm: 859920 1 Capsule(s) PO BID 1 CAPSULE(S) PO BID 01/08/2017 07/06/2017 Inactive TAKE 1 CAPSULE BY MOUTH TWICE DAILY nystatin 100,000 unit/gram topical powder RxNorm: 065618 1 APPLICATION TOP QID UNTIL HEALED 12/17/2016 01/20/2017 Inactive hydrocodone 10 mg-acetaminophen 325 mg tablet RxNorm: 692151 1-2 Tablet(s) PO Q6 as needed for pain 12/17/2016 01/07/2017 Inactive Claritin-D 12 Hour 5 mg-120 mg tablet,extended release RxNorm: 4796588 Tablet(s) as needed TAKE 1 TABLET BY MOUTH TWICE DAILY NEEDED 201602/12/2017 Inactive Lipitor 20 mg tablet RxNorm: 278087 1 TABLET(S) PO DAILY 201606/07/2017 Inactive TAKE ONE TABLET BY MOUTH EVERY NIGHT AT BEDTIME Advair Diskus 250 mcg-50 mcg/dose powder for inhalation RxNorm: 3744284 1 Puff(s) INH BID 11/26/2016 01/20/2017 Inactive Valium 10 mg tablet RxNorm: 646468 1 Tablet(s) QID as needed 11/24/2016 01/22/2017 Inactive (Response to an electronic controlled substance refill request - RxReferenceNumber: [id number]|1|0|1) cyanocobalamin (vit B-12) 1,000 mcg/mL injection solution RxNorm: 471290 1 Milliliter(s) Inj 11/17/2016 11/17/2016 Inactive tramadol 50 mg tablet RxNorm: 447992 1-2 Tablet(s) PO TID as needed 11/06/2016 10/19/2017 Inactive hydrocodone 10 mg-acetaminophen 325 mg tablet RxNorm: 452102 1-2 Tablet(s) PO Q6 as needed for pain 11/06/2016 11/27/2016 Inactive nystatin 100,000 unit/gram topical powder RxNorm: 723856 1 Application TOP QID until healed 10/27/2016 12/16/2016 Inactive cyanocobalamin (vit B-12) 1,000 mcg/mL injection solution RxNorm: 059199 1 Milliliter(s) Inj 10/12/2016 10/12/2016 Inactive trazodone 100 mg tablet RxNorm: 465409 Tablet(s) TAKE 2 TABLETS BY MOUTH EVERY NIGHT AT BEDTIME 09/24/2016 03/22/2017 Inactive Valium 10 mg tablet RxNorm: 327359 1 Tablet(s) QID as needed 09/24/2016 11/22/2016 Inactive (Response to an electronic controlled substance refill request - RxReferenceNumber: [id number]|1|0|1) Savella 100 mg tablet RxNorm: 167146 TABLET(S) PO TAKE 1 TABLET BY MOUTH DAILY 09/18/2016 08/30/2017 Inactive pantoprazole 40 mg tablet,delayed release RxNorm: 594552 TAKE 1 TABLET BY MOUTH EVERY DAY 09/18/2016 02/25/2017 Inactive cyanocobalamin (vit B-12) 1,000 mcg/mL injection solution RxNorm: 240860 1 Milliliter(s) Inj 09/11/2016 09/11/2016 Inactive hydrocodone 10 mg-acetaminophen 325 mg tablet RxNorm: 005045 1-2 Tablet(s) PO Q6 as needed for pain 08/24/2016 11/05/2016 Inactive (Response to an electronic controlled substance refill request - RxReferenceNumber: [id number]|1|0|1) Claritin-D 12 Hour 5 mg-120 mg tablet,extended release RxNorm: 3946882 Tablet(s) TAKE 1 TABLET BY MOUTH TWICE DAILY NEEDED 08/13/2016 10/10/2016 Inactive tramadol 50 mg tablet RxNorm: 608707 1-2 Tablet(s) PO TID PRN as needed 08/11/2016 11/05/2016 Inactive metoprolol tartrate 25 mg tablet RxNorm: 641296 TABLET(S) 1/2 TABLET(S) PO BID TAKE 1/2 TABLET BY MOUTH TWICE DAILY 08/10/2016 01/17/2017 Inactive pantoprazole 40 mg tablet,delayed release RxNorm: 076545 TAKE 1 TABLET BY MOUTH EVERY DAY 08/10/2016 11/05/2016 Inactive Savella 100 mg tablet RxNorm: 151329 TABLET(S) PO TAKE 1 TABLET BY MOUTH DAILY 08/10/2016 11/05/2016 Inactive Ventolin HFA 90 mcg/actuation aerosol inhaler RxNorm: 138954 1 OR 2 PUFF(S) INH Q6 PRN NEEDED 08/07/2016 02/02/2017 Inactive Diflucan 150 mg tablet RxNorm: 452834 1 Tablet(s) PO daily 08/201608/13/2016 Inactive nystatin 100,000 unit/mL oral suspension RxNorm: 309348 5 Milliliter(s) PO QID 08/07/2016 08/16/2016 Inactive hydrocodone 10 mg-acetaminophen 325 mg tablet RxNorm: 056269 1-2 Tablet(s) PO Q6 as needed for pain 08/04/2016 08/23/2016 Inactive (Response to an electronic controlled substance refill request - RxReferenceNumber: [id number]|1|0|1) Valium 10 mg tablet RxNorm: 802278 1 Tablet(s) QID as needed 07/20/2016 09/17/2016 Inactive (Response to an electronic controlled substance refill request - RxReferenceNumber: [id number]|1|0|1) tramadol 50 mg tablet RxNorm: 108670 1-2 Tablet(s) PO TID PRN as needed 07/15/2016 11/05/2016 Inactive ok to give 1 month haawzp=546 tablets cyanocobalamin (vit B-12) 1,000 mcg/mL injection solution RxNorm: 981421 Milliliter(s) Inj 07/03/2016 07/03/2016 Inactive Seroquel 100 mg tablet RxNorm: 305773 1 TABLET(S) PO BID 201603/15/2017 Inactive TAKE 1 TABLET BY MOUTH TWICE DAILY hydrocodone 10 mg-acetaminophen 325 mg tablet RxNorm: 130374 1-2 Tablet(s) PO Q6 as needed for pain 06/26/2016 08/03/2016 Inactive (Response to an electronic controlled substance refill request - RxReferenceNumber: [id number]|1|0|1) Valium 10 mg tablet RxNorm: 553445 1 Tablet(s) QID as needed 05/11/2016 07/09/2016 Inactive (Response to an electronic controlled substance refill request - RxReferenceNumber: [id number]|1|0|1) tramadol 50 mg tablet RxNorm: 652345 1-2 Tablet(s) PO TID PRN as needed 05/11/2016 07/08/2016 Inactive ok to give 1 month leplci=650 tablets cyclobenzaprine 10 mg tablet RxNorm: 579801 TAKE 1 TABLET BY MOUTH THREE TIMES DAILY NEEDED FOR MUSCLE SPASMS 05/11/2016 05/10/2017 Inactive hydrocodone 10 mg-acetaminophen 325 mg tablet RxNorm: 149037 1-2 Tablet(s) PO Q6 as needed for pain 05/06/2016 06/25/2016 Inactive (Response to an electronic controlled substance refill request - RxReferenceNumber: [id number]|1|0|1) cyanocobalamin (vit B-12) 1,000 mcg/mL injection solution RxNorm: 584530 1 Milliliter(s) Inj 04/20/2016 04/20/2016 Inactive hydrocodone 10 mg-acetaminophen 325 mg tablet RxNorm: 853046 1-2 Tablet(s) PO Q6 as needed for pain 04/03/2016 05/05/2016 Inactive (Response to an electronic controlled substance refill request - RxReferenceNumber: [id number]|1|0|1) pantoprazole 40 mg tablet,delayed release RxNorm: 603037 TAKE 1 TABLET BY MOUTH EVERY DAY 04/02/2016 08/09/2016 Inactive Claritin-D 12 Hour 5 mg-120 mg tablet,extended release RxNorm: 6445548 Tablet(s) TAKE 1 TABLET BY MOUTH TWICE DAILY NEEDED 04/02/2016 11/05/2016 Inactive hydrocodone 10 mg-acetaminophen 325 mg tablet RxNorm: 923039 1-2 Tablet(s) PO Q6 as needed for pain 03/12/2016 04/02/2016 Inactive (Response to an electronic controlled substance refill request - RxReferenceNumber: [id number]|1|0|1) Effexor XR 150 mg capsule,extended release RxNorm: 738761 1 CAPSULE(S) PO BID 03/05/2016 01/07/2017 Inactive TAKE 1 CAPSULE BY MOUTH TWICE DAILY Ventolin HFA 90 mcg/actuation aerosol inhaler RxNorm: 958683 1 OR 2 PUFF(S) INH Q6 PRN NEEDED 02/19/2016 08/06/2016 Inactive cyanocobalamin (vit B-12) 1,000 mcg/mL injection solution RxNorm: 450568 Milliliter(s) Inj 02/13/2016 02/13/2016 Inactive hydrocodone 10 mg-acetaminophen 325 mg tablet RxNorm: 288056 1-2 Tablet(s) PO Q6 as needed for pain 02/05/2016 03/11/2016 Inactive (Response to an electronic controlled substance refill request - RxReferenceNumber: [id number]|1|0|1) Valium 10 mg tablet RxNorm: 261811 1 Tablet(s) QID as needed 02/05/2016 05/04/2016 Inactive (Response to an electronic controlled substance refill request - RxReferenceNumber: [id number]|1|0|1) tramadol 50 mg tablet RxNorm: 344287 1-2 Tablet(s) PO TID PRN as needed 02/05/2016 11/05/2016 Inactive ok to give 1 month pjxvzg=682 tablets hydrocodone 10 mg-acetaminophen 325 mg tablet RxNorm: 492783 1-2 Tablet(s) PO Q6 as needed for pain 01/08/2016 02/04/2016 Inactive (Response to an electronic controlled substance refill request - RxReferenceNumber: [id number]|1|0|1) metoprolol tartrate 25 mg tablet RxNorm: 832440 Tablet(s) 1/2 TABLET(S) PO BID TAKE 1/2 TABLET BY MOUTH TWICE DAILY 01/08/2016 08/09/2016 Inactive Symbicort 160 mcg-4.5 mcg/actuation HFA aerosol inhaler RxNorm: 6828137 2 INH BID 01/03/2016 11/25/2016 Inactive Symbicort 160 mcg-4.5 mcg/actuation HFA aerosol inhaler RxNorm: 5481698 1 INH daily 01/03/2016 01/02/2016 Inactive Lipitor 20 mg tablet RxNorm: 843473 1 TABLET(S) PO DAILY 201506/26/2016 Inactive TAKE ONE TABLET BY MOUTH EVERY NIGHT AT BEDTIME trazodone 100 mg tablet RxNorm: 392901 TAKE 2 TABLETS BY MOUTH EVERY NIGHT AT BEDTIME 12/30/2015 09/23/2016 Inactive Savella 100 mg tablet RxNorm: 984742 TABLET(S) PO TAKE 1 TABLET BY MOUTH DAILY 12/30/2015 08/09/2016 Inactive hydrocodone 10 mg-acetaminophen 325 mg tablet RxNorm: 383744 1-2 Tablet(s) PO Q6 as needed for pain 12/12/2015 01/07/2016 Inactive (Response to an electronic controlled substance refill request - RxReferenceNumber: [id number]|1|0|1) cyanocobalamin (vit B-12) 1,000 mcg/mL injection solution RxNorm: 224931 1 Milliliter(s) Inj 12/02/2015 12/02/2015 Inactive hydrocodone 10 mg-acetaminophen 325 mg tablet RxNorm: 352850 1-2 Tablet(s) PO Q6 as needed for pain 12/02/2015 12/11/2015 Inactive (Response to an electronic controlled substance refill request - RxReferenceNumber: [id number]|1|0|1) Claritin-D 12 Hour 5 mg-120 mg tablet,extended release RxNorm: 2621938 Tablet(s) TAKE 1 TABLET BY MOUTH TWICE DAILY 11/11/2015 11/10/2015 Inactive Claritin-D 12 Hour 5 mg-120 mg tablet,extended release RxNorm: 1007460 Tablet(s) TAKE 1 TABLET BY MOUTH TWICE DAILY NEEDED 11/11/2015 01/06/2016 Inactive tramadol 50 mg tablet RxNorm: 258113 1-2 Tablet(s) PO TID PRN as needed 11/05/2015 11/05/2016 Inactive ok to give 1 month qifesl=286 tablets Valium 10 mg tablet RxNorm: 733762 1 Tablet(s) QID as needed 11/05/2015 02/02/2016 Inactive (Response to an electronic controlled substance refill request - RxReferenceNumber: [id number]|1|0|1) cyanocobalamin (vit B-12) 1,000 mcg/mL injection solution RxNorm: 632894 1 Milliliter(s) Inj 10/29/2015 10/29/2015 Inactive hydrocodone 10 mg-acetaminophen 325 mg tablet RxNorm: 337471 1-2 Tablet(s) PO Q6 as needed for pain 10/28/2015 12/01/2015 Inactive (Response to an electronic controlled substance refill request - RxReferenceNumber: [id number]|1|0|1) pantoprazole 40 mg tablet,delayed release RxNorm: 919170 TAKE 1 TABLET BY MOUTH EVERY DAY 10/08/2015 04/01/2016 Inactive Seroquel 100 mg tablet RxNorm: 972895 1 TABLET(S) PO BID 201506/29/2016 Inactive TAKE 1 TABLET BY MOUTH TWICE DAILY trazodone 100 mg tablet RxNorm: 864616 TAKE 2 TABLETS BY MOUTH EVERY NIGHT AT BEDTIME 10/08/2015 10/01/2016 Inactive Lipitor 20 mg tablet RxNorm: 360417 1 TABLET(S) PO DAILY 201504/04/2016 Inactive TAKE ONE TABLET BY MOUTH EVERY NIGHT AT BEDTIME hydrocodone 10 mg-acetaminophen 325 mg tablet RxNorm: 976425 1-2 Tablet(s) PO Q6 as needed for pain 09/19/2015 10/18/2015 Inactive (Response to an electronic controlled substance refill request - RxReferenceNumber: [id number]|1|0|1) Valium 10 mg tablet RxNorm: 062868 1 Tablet(s) QID as needed 09/05/2015 11/03/2015 Inactive (Response to an electronic controlled substance refill request - RxReferenceNumber: [id number]|1|0|1) Savella 100 mg tablet RxNorm: 061259 Tablet(s) PO TAKE 1 TABLET BY MOUTH DAILY 07/19/2015 11/05/2016 Inactive Zithromax Z-Lauro 250 mg tablet RxNorm: 588835 1 Tablet(s) PO UD 07/12/2015 11/04/2015 Inactive z lauro hydrocodone 10 mg-acetaminophen 325 mg tablet RxNorm: 417433 1-2 Tablet(s) PO Q6 as needed for pain 07/10/2015 08/08/2015 Inactive (Response to an electronic controlled substance refill request - RxReferenceNumber: [id number]|1|0|1) tramadol 50 mg tablet RxNorm: 971913 1-2 Tablet(s) PO TID PRN as needed 07/04/2015 11/05/2016 Inactive ok to give 1 month pnaktr=233 tablets hydrocodone 10 mg-acetaminophen 325 mg tablet RxNorm: 290110 1-2 Tablet(s) PO Q6 as needed for pain 06/10/2015 07/09/2015 Inactive (Response to an electronic controlled substance refill request - RxReferenceNumber: [id number]|1|0|1) cyanocobalamin (vit B-12) 1,000 mcg/mL injection solution RxNorm: 343171 Milliliter(s) Inj 06/10/2015 06/10/2015 Inactive pantoprazole 40 mg tablet,delayed release RxNorm: 135553 TABLET(S) PO TAKE 1 TABLET BY MOUTH EVERY DAY 06/10/201511/05 Inactive pantoprazole 40 mg tablet,delayed release RxNorm: 187618 Tablet(s) PO TAKE 1 TABLET BY MOUTH EVERY DAY 06/06/201511/05 Inactive tramadol 50 mg tablet RxNorm: 137400 1-2 Tablet(s) PO TID PRN as needed 05/29/2015 06/27/2015 Inactive ok to give 1 month ljmjlr=895 tablets tramadol 50 mg tablet RxNorm: 743637 1-2 Tablet(s) PO Q6 as needed 05/29/2015 06/09/2015 Inactive Valium 10 mg tablet RxNorm: 791179 1 Tablet(s) QID as needed 05/08/2015 07/06/2015 Inactive (Response to an electronic controlled substance refill request - RxReferenceNumber: [id number]|1|0|1) cyclobenzaprine 10 mg tablet RxNorm: 268356 TAKE 1 TABLET BY MOUTH THREE TIMES DAILY NEEDED FOR MUSCLE SPASMS 05/08/2015 05/10/2016 Inactive Effexor XR 150 mg capsule,extended release RxNorm: 397611 1 Capsule(s) PO BID 1 CAPSULE(S) PO BID 05/08/2015 11/05/2016 Inactive TAKE 1 CAPSULE BY MOUTH TWICE DAILY hydrocodone 10 mg-acetaminophen 325 mg tablet RxNorm: 882473 1-2 Tablet(s) PO Q6 as needed for pain 05/08/2015 06/06/2015 Inactive (Response to an electronic controlled substance refill request - RxReferenceNumber: [id number]|1|0|1) metoprolol tartrate 25 mg tablet RxNorm: 962940 1/2 TABLET(S) PO BID TAKE 1/2 TABLET BY MOUTH TWICE DAILY 05/06/201507/2015 Inactive Claritin-D 12 Hour 5 mg-120 mg tablet,extended release RxNorm: 5457445 TAKE 1 TABLET BY MOUTH TWICE DAILY 04/16/201506/2016 Inactive hydrocodone 10 mg-acetaminophen 325 mg tablet RxNorm: 361576 1-2 Tablet(s) PO Q6 as needed for pain 04/15/2015 05/07/2015 Inactive (Response to an electronic controlled substance refill request - RxReferenceNumber: [id number]|1|0|1) pantoprazole 40 mg tablet,delayed release RxNorm: 408953 TABLET(S) PO TAKE 1 TABLET BY MOUTH EVERY DAY 04/08/201506/06 Inactive hydrocodone 10 mg-acetaminophen 325 mg tablet RxNorm: 366911 1 Tablet(s) PO Q4 PRN TAKE 1-2 TABLETS BY MOUTH EVERY 6 HOURS NEEDED FOR PAIN 03/14/2015 04/12/2015 Inactive (Response to an electronic controlled substance refill request - RxReferenceNumber: [id number]|1|0|1) diazepam 10 mg tablet RxNorm: 531469 1 Tablet(s) TID TAKE 1 TABLET BY MOUTH THREE TIMES DAILY NEEDED 02/08/20152016 Inactive (Response to an electronic controlled substance refill request - RxReferenceNumber: [id number]|1|0|1) Effexor XR 150 mg capsule,extended release RxNorm: 833575 1 CAPSULE(S) PO BID 02/07/2015 05/07/2015 Inactive TAKE 1 CAPSULE BY MOUTH TWICE DAILY cyclobenzaprine 10 mg tablet RxNorm: 606597 TAKE 1 TABLET BY MOUTH THREE TIMES DAILY NEEDED FOR MUSCLE SPASMS 02/07/2015 05/07/2015 Inactive pantoprazole 40 mg tablet,delayed release RxNorm: 347205 TABLET(S) PO TAKE 1 TABLET BY MOUTH EVERY DAY 02/07/201504/07 Inactive hydrocodone 10 mg-acetaminophen 325 mg tablet RxNorm: 626050 1 Tablet(s) PO Q4 PRN TAKE 1-2 TABLETS BY MOUTH EVERY 6 HOURS NEEDED FOR PAIN 01/25/2015 02/23/2015 Inactive (Response to an electronic controlled substance refill request - RxReferenceNumber: [id number]|1|0|1) Bactroban Nasal 2 % ointment RxNorm: 351986 1 Application NASAL BID 01/10/2015 01/10/2015 Inactive mupirocin 2 % topical ointment RxNorm: 991064 1 Application TOP TID 1 APPLICATION TOP PRN 01/10/2015 01/19/2015 Inactive disregard order for nasal ointment , use on left knee trazodone 100 mg tablet RxNorm: 224029 TAKE 2 TABLETS BY MOUTH EVERY NIGHT AT BEDTIME 01/08/2015 10/07/2015 Inactive Seroquel 100 mg tablet RxNorm: 056630 1 TABLET(S) PO BID 201410/04/2015 Inactive TAKE 1 TABLET BY MOUTH TWICE DAILY cyclobenzaprine 10 mg tablet RxNorm: 524524 TAKE 1 TABLET BY MOUTH THREE TIMES DAILY NEEDED FOR MUSCLE SPASMS 01/08/2015 02/06/2015 Inactive hydrocodone 10 mg-acetaminophen 325 mg tablet RxNorm: 541812 1 Tablet(s) PO Q4 PRN TAKE 1-2 TABLETS BY MOUTH EVERY 6 HOURS NEEDED FOR PAIN 12/21/2014 01/19/2015 Inactive (Response to an electronic controlled substance refill request - RxReferenceNumber: [id number]|1|0|1) pantoprazole 40 mg tablet,delayed release RxNorm: 846997 TABLET(S) PO TAKE 1 TABLET BY MOUTH EVERY DAY 12/13/201402/06 Inactive Lipitor 20 mg tablet RxNorm: 505638 1 Tablet(s) PO daily 201409/08/2015 Inactive TAKE ONE TABLET BY MOUTH EVERY NIGHT AT BEDTIME Valium 10 mg tablet RxNorm: 790975 1 Tablet(s) QID as needed 12/12/2014 02/09/2015 Inactive (Response to an electronic controlled substance refill request - RxReferenceNumber: [id number]|1|0|1) hydrocodone 10 mg-acetaminophen 325 mg tablet RxNorm: 397809 Tablet(s) TAKE 1-2 TABLETS BY MOUTH EVERY 6 HOURS NEEDED FOR PAIN 12/12/2014 12/20/2014 Inactive ( Response to an electronic controlled substance refill request - RxReferenceNumber: [id number]|1|0|1) Lipitor 20 mg tablet RxNorm: 180453 1 Tablet(s) PO daily 201412/12/2014 Inactive TAKE ONE TABLET BY MOUTH EVERY NIGHT AT BEDTIME pantoprazole 40 mg tablet,delayed release RxNorm: 078872 TABLET(S) PO TAKE 1 TABLET BY MOUTH EVERY DAY 12/06/201411/05 Inactive Savella 100 mg tablet RxNorm: 560934 Tablet(s) PO TAKE 1 TABLET BY MOUTH DAILY 12/06/2014 07/18/2015 Inactive Lipitor 20 mg tablet RxNorm: 814802 1 Tablet(s) PO daily 201412/10/2014 Inactive TAKE ONE TABLET BY MOUTH EVERY NIGHT AT BEDTIME Valium 10 mg tablet RxNorm: 759559 TAKE 1 TABLET BY MOUTH FOUR TIMES DAILY NEEDED FOR ANXIETY 12/06/2014 12/11/2014 Inactive Valium 10 mg tablet RxNorm: 453138 1 Tablet(s) QID as needed 11/13/2014 12/11/2014 Inactive (Response to an electronic controlled substance refill request - RxReferenceNumber: [id number]|1|0|1) hydrocodone 10 mg-acetaminophen 325 mg tablet RxNorm: 869051 Tablet(s) TAKE 1-2 TABLETS BY MOUTH EVERY 6 HOURS NEEDED FOR PAIN 11/13/2014 12/11/2014 Inactive ( Response to an electronic controlled substance refill request - RxReferenceNumber: [id number]|1|0|1) hydrocodone 10 mg-acetaminophen 325 mg tablet RxNorm: 862891 Tablet(s) TAKE 1-2 TABLETS BY MOUTH EVERY 6 HOURS NEEDED FOR PAIN 11/08/2014 11/12/2014 Inactive ( Response to an electronic controlled substance refill request - RxReferenceNumber: [id number]|1|0|1) Valium 10 mg tablet RxNorm: 450790 1 Tablet(s) QID as needed 11/08/2014 11/12/2014 Inactive (Response to an electronic controlled substance refill request - RxReferenceNumber: [id number]|1|0|1) metoprolol tartrate 25 mg tablet RxNorm: 846250 1/2 TABLET(S) PO BID TAKE 1/2 TABLET BY MOUTH TWICE DAILY 11/08/2014 Inactive Valium 10 mg tablet RxNorm: 438947 TAKE 1 TABLET BY MOUTH FOUR TIMES DAILY NEEDED FOR ANXIETY 11/06/2014 12/09/2014 Inactive Vitamin D2 50,000 unit capsule RxNorm: 278903 1 Capsule(s) PO QW 10/24/2014 10/23/2014 Inactive Vitamin D2 50,000 unit capsule RxNorm: 348622 1 Capsule(s) PO QW x 8 weeks 10/24/2014 12/22/2014 Inactive Entyvio 300 mg intravenous solution RxNorm: 0316246 IV 2014 No Stop Date Active hydrocodone 10 mg-acetaminophen 325 mg tablet RxNorm: 111899 Tablet(s) TAKE 1-2 TABLETS BY MOUTH EVERY 6 HOURS NEEDED FOR PAIN 10/05/2014 11/03/2014 Inactive ( Response to an electronic controlled substance refill request - RxReferenceNumber: [id number]|1|0|1) Valium 10 mg tablet RxNorm: 290893 TAKE 1 TABLET BY MOUTH EVERY 8 HOURS NEEDED 10/05/2014 11/03/2014 Inactive (Response to an electronic controlled substance refill request - RxReferenceNumber: [id number]|1|0|1) Valium 10 mg tablet RxNorm: 295801 1 Tablet(s) PO QID as needed TAKE 1 TABLET BY MOUTH 10/05/2014 11/05/2016 Inactive (Response to an electronic controlled substance refill request - RxReferenceNumber: [id number]|1|0|1) Valium 10 mg tablet RxNorm: 103733 TAKE 1 TABLET BY MOUTH THREE TIMES DAILY NEEDED 09/04/2014 10/03/2014 Inactive (Response to an electronic controlled substance refill request - RxReferenceNumber: [id number]|1|0|1) Valium 10 mg tablet RxNorm: 881955 1 Tablet(s) PO Q8 PRN as needed 09/04/2014 11/09/2014 Inactive hydrocodone 10 mg-acetaminophen 325 mg tablet RxNorm: 400922 Tablet(s) TAKE 1-2 TABLETS BY MOUTH EVERY 6 HOURS NEEDED FOR PAIN 08/27/2014 09/25/2014 Inactive ( Response to an electronic controlled substance refill request - RxReferenceNumber: [id number]|1|0|1) Claritin-D 12 Hour 5 mg-120 mg tablet,extended release RxNorm: 3896856 1 Tablet(s ) PO BID 08/27/2014 04/16/2015 Inactive Ventolin HFA 90 mcg/actuation aerosol inhaler RxNorm: 336063 1 or 2 Puff(s) INH Q6 PRN as needed 08/09/2014 03/06/2015 Inactive pantoprazole 40 mg tablet,delayed release RxNorm: 596946 Tablet(s) PO TAKE 1 TABLET BY MOUTH EVERY DAY 08/09/201408/08 Inactive pantoprazole 40 mg tablet,delayed release RxNorm: 659367 TAKE 1 TABLET BY MOUTH EVERY DAY 08/09/2014 11/05/2016 Inactive diazepam 10 mg tablet RxNorm: 369005 TAKE 1 TABLET BY MOUTH THREE TIMES DAILY NEEDED 07/02/2014 07/31/2014 Inactive (Response to an electronic controlled substance refill request - RxReferenceNumber: [id number]|1|0|1) Valium 10 mg tablet RxNorm: 727364 1 Tablet(s) PO Q8 PRN as needed 07/02/2014 07/01/2014 Inactive hydrocodone 10 mg-acetaminophen 325 mg tablet RxNorm: 586489 Tablet(s) TAKE 1-2 TABLETS BY MOUTH EVERY 6 HOURS NEEDED FOR PAIN 06/14/2014 07/13/2014 Inactive ( Response to an electronic controlled substance refill request - RxReferenceNumber: [id number]|1|0|1) diazepam 10 mg tablet RxNorm: 215780 TAKE 1 TABLET BY MOUTH THREE TIMES DAILY NEEDED 05/29/2014 06/27/2014 Inactive (Response to an electronic controlled substance refill request - RxReferenceNumber: [id number]|1|0|1) diazepam 10 mg tablet RxNorm: 533788 Tablet(s) PO TAKE 1 TABLET BY MOUTH THREE TIMES DAILY NEEDED 05/29/20142013 Inactive (Appended: Controlled substance eRx refill - RxReferenceNumber: [id number]|1|0|1) hydrocodone 10 mg-acetaminophen 325 mg tablet RxNorm: 142282 Tablet(s) TAKE 1-2 TABLETS BY MOUTH EVERY 6 HOURS NEEDED FOR PAIN 05/17/2014 06/13/2014 Inactive ( Response to an electronic controlled substance refill request - RxReferenceNumber: [id number]|1|0|1) diazepam 10 mg tablet RxNorm: 892003 Tablet(s) PO TAKE 1 TABLET BY MOUTH THREE TIMES DAILY NEEDED 04/27/20142013 Inactive (Appended: Controlled substance eRx refill - RxReferenceNumber: [id number]|1|0|1) Anucort-HC 25 mg suppository RxNorm: 7081981 1 SUPPOSITORY RTL QDAY PRN NEEDED 04/03/2014 06/01/2014 Inactive metoprolol tartrate 25 mg tablet RxNorm: 927710 1/2 TABLET(S) PO BID TAKE 1/2 TABLET BY MOUTH TWICE DAILY 04/03/201408/2014 Inactive Anucort-HC 25 mg suppository RxNorm: 0871713 1 SUPPOSITORY RTL QDAY PRN NEEDED 04/03/2014 06/01/2014 Inactive Seroquel 100 mg tablet RxNorm: 924453 1 TABLET(S) PO BID 201312/28/2014 Inactive TAKE 1 TABLET BY MOUTH TWICE DAILY Anucort-HC 25 mg suppository RxNorm: 2343296 1 SUPPOSITORY RTL QDAY PRN NEEDED 04/03/2014 06/01/2014 Inactive hydrocodone 10 mg-acetaminophen 325 mg tablet RxNorm: 171485 Tablet(s) TAKE 1-2 TABLETS BY MOUTH EVERY 6 HOURS NEEDED FOR PAIN 03/22/2014 04/20/2014 Inactive ( Response to an electronic controlled substance refill request - RxReferenceNumber: [id number]|1|0|1) Claritin-D 12 Hour 5 mg-120 mg tablet,extended release RxNorm: 3208202 1 Tablet(s ) PO BID 03/22/2014 2014 Inactive diazepam 10 mg tablet RxNorm: 863259 TAKE 1 TABLET BY MOUTH THREE TIMES DAILY NEEDED 03/19/2014 04/16/2014 Inactive (Response to an electronic controlled substance refill request - RxReferenceNumber: [id number]|1|0|1) Lipitor 20 mg tablet RxNorm: 619503 1 TABLET(S) PO DAILY 201312/05/2014 Inactive TAKE ONE TABLET BY MOUTH EVERY NIGHT AT BEDTIME Effexor XR 150 mg capsule,extended release RxNorm: 538438 1 CAPSULE(S) PO BID 03/01/2014 01/24/2015 Inactive TAKE 1 CAPSULE BY MOUTH TWICE DAILY Claritin-D 12 Hour 5 mg-120 mg tablet,extended release RxNorm: 8846031 1 Tablet(s ) PO BID 02/19/2014 03/21/2014 Inactive cyanocobalamin (vit B-12) 1,000 mcg/mL injection solution RxNorm: 005473 Milliliter(s) Inj 02/15/2014 02/15/2014 Inactive hydrocodone 10 mg-acetaminophen 325 mg tablet RxNorm: 647670 1 Tablet(s) PO Q6 PRN TAKE ONE TO TWO TABLETS BY MOUTH EVERY 6 HOURS NEEDED FOR PAIN 01/30/2014 01/30/2014 Inactive (Response to an electronic controlled substance refill request - RxReferenceNumber: [id number]|1|0|1) hydrocodone 10 mg-acetaminophen 325 mg tablet RxNorm: 683515 TAKE 1-2 TABLETS BY MOUTH EVERY 6 HOURS NEEDED FOR PAIN 01/30/2014 02/19/2014 Inactive (Response to an electronic controlled substance refill request - RxReferenceNumber: [id number]| [id number]|1|0|1) cyanocobalamin (vit B-12) 1,000 mcg/mL injection kit RxNorm: 618195 1 Milliliter(s ) Inj 01/15/2014 01/15/2014 Inactive Kenalog 40 mg/mL suspension for injection RxNorm: 7491865 1 Milliliter(s) Inj 01/15/2014 01/15/2014 Inactive Anucort-HC 25 mg suppository RxNorm: 0542849 1 Suppository RTL QDAY PRN as needed 01/15/2014 02/13/2014 Inactive hydrocodone 10 mg-acetaminophen 325 mg tablet RxNorm: 518745 TAKE ONE TO TWO TABLETS BY MOUTH EVERY 6 HOURS NEEDED FOR PAIN 12/29/2013 01/18/2014 Inactive ( Response to an electronic controlled substance refill request - RxReferenceNumber: [id number]|1|0|1) trazodone 100 mg tablet RxNorm: 091384 TAKE 2 TABLETS BY MOUTH EVERY NIGHT AT BEDTIME 12/20/2013 12/14/2014 Inactive mupirocin 2 % topical ointment RxNorm: 495009 1 APPLICATION TOP PRN 12/14/2013 01/09/2015 Inactive cyanocobalamin (vit B-12) 1,000 mcg/mL injection solution RxNorm: 402332 1 Milliliter(s) Inj 12/04/2013 12/04/2013 Inactive Savella 100 mg tablet RxNorm: 057506 1 Tablet(s) PO daily TAKE 1 TABLET BY MOUTH DAILY 11/28/2013 11/05/2016 Inactive Savella 100 mg tablet RxNorm: 475951 Tablet(s) PO TAKE 1 TABLET BY MOUTH DAILY 10/27/2013 11/27/2013 Inactive mupirocin 2 % topical ointment RxNorm: 813596 1 Application TOP PRN 10/17/2013 No Stop Date Active trazodone 100 mg tablet RxNorm: 474619 Tablet(s) PO TAKE 2 TABLETS BY MOUTH EVERY NIGHT AT BEDTIME 09/26/2013 11/05/2016 Inactive cyclobenzaprine 10 mg tablet RxNorm: 082867 Tablet(s) PO TAKE ONE TABLET BY MOUTH THREE TIMES DAILY 09/26/2013 01/07/2015 Inactive diazepam 10 mg tablet RxNorm: 887516 Tablet(s) PO TAKE 1 TABLET BY MOUTH THREE TIMES DAILY NEEDED 08/15/20132013 Inactive (Appended: Controlled substance eRx refill - RxReferenceNumber: [id number]|1|0|1) diazepam 10 mg tablet RxNorm: 606739 1 Tablet(s) PO TID PRN TAKE 1 TABLET BY MOUTH THREE TIMES DAILY NEEDED 08/15/2013 Inactive (Appended: Controlled substance eRx refill - RxReferenceNumber: [id number]|1|0|1) Vitamin B-12 1,000 mcg/mL injection solution RxNorm: 613354 Milliliter(s) Inj 07/24/2013 07/24/2013 Inactive pantoprazole 40 mg tablet,delayed release RxNorm: 545940 Tablet(s) PO TAKE 1 TABLET BY MOUTH EVERY DAY 07/20/201308/08 Inactive hydrocodone 10 mg-acetaminophen 325 mg tablet RxNorm: 499738 1 or 2 Tablet(s) PO Q6 PRN limit 6 per day 06/26/20132013 Inactive (Appended: Controlled substance eRx refill - RxReferenceNumber: [id number]|1|0|1) trazodone 100 mg tablet RxNorm: 528487 Tablet(s) PO TAKE 2 TABLETS BY MOUTH EVERY NIGHT AT BEDTIME 06/26/2013 11/05/2016 Inactive pantoprazole 40 mg tablet,delayed release RxNorm: 466590 Tablet(s) PO TAKE 1 TABLET BY MOUTH EVERY DAY 06/20/201306/05 Inactive prednisone 10 mg tablets in a dose pack RxNorm: 573030 Tablet(s) PO 6-5-4-3-2-1 06/13/2013 06/12/2013 Inactive prednisone 10 mg tablets in a dose pack RxNorm: 093396 Tablet(s) PO UD 6-5-4-3-2- 1 06/13/2013 06/18/2013 Inactive Silvadene 1 % topical cream RxNorm: 660383 1 TOP daily apply thin layer to left knee daily 06/12/2013 06/18/2013 Inactive metoprolol tartrate 25 mg tablet RxNorm: 848156 1/2 Tablet(s) PO BID TAKE 1/2 TABLET BY MOUTH TWICE DAILY 05/19/2013 Inactive Lipitor 20 mg tablet RxNorm: 258022 1 Tablet(s) PO daily 201203/11/2014 Inactive TAKE ONE TABLET BY MOUTH EVERY NIGHT AT BEDTIME Vitamin B-12 1,000 mcg/mL injection solution RxNorm: 179653 1 Milliliter(s) Inj 05/10/2013 05/10/2013 Inactive hydrocodone 10 mg-acetaminophen 325 mg tablet RxNorm: 246273 1 or 2 Tablet(s) PO Q6 PRN limit 6 per day 03/16/2013 No Stop Date Active (Appended: Controlled substance eRx refill - RxReferenceNumber: [id number]|1|0|1) Seroquel 100 mg tablet RxNorm: 132879 1 Tablet(s) PO BID 201203/10/2014 Inactive TAKE 1 TABLET BY MOUTH TWICE DAILY Effexor XR 150 mg capsule,extended release RxNorm: 800297 1 Capsule(s) PO BID 03/16/2013 02/28/2014 Inactive TAKE 1 CAPSULE BY MOUTH TWICE DAILY fluconazole 150 mg tablet RxNorm: 077304 1 Tablet(s) PO daily 03/06/2013 03/12/2013 Inactive Kenalog 40 mg/mL Susp for Injection RxNorm: 1691154 Milliliter(s) Inj 03/06/2013 03/06/2013 Inactive Ventolin HFA 90 mcg/actuation Aerosol Inhaler RxNorm: 8853435 1 or 2 Puff(s) INH Q6 PRN 02/20/2013 03/16/2014 Inactive cyanocobalamin (vitamin B-12) 1,000 mcg/mL Injection RxNorm: 811076 Milliliter(s) Inj 02/20/2013 02/20/2013 Inactive Valium 10 mg tablet RxNorm: 352826 1 Tablet(s) PO Q8 PRN 01/3102/24/2014 Inactive Kenalog 40 mg/mL Susp for Injection RxNorm: 2860469 Milliliter(s) Inj 12/26/2012 12/26/2012 Inactive cyanocobalamin (vitamin B-12) 1,000 mcg/mL Injection RxNorm: 233331 Milliliter(s) Inj 12/21/2012 12/21/2012 Inactive hydrocodone 10 mg-acetaminophen 325 mg tablet RxNorm: 7527184 1 or 2 Tablet(s) PO Q6 PRN limit 6 per day 11/25/20122012 Inactive (Appended: Controlled substance eRx refill - RxReferenceNumber: [id number]|1|0|1) diazepam 10 mg tablet RxNorm: 484727 1 Tablet(s) PO TID PRN 08/15/2013 Inactive TAKE 1 TABLET BY MOUTH THREE TIMES DAILY NEEDED (Appended: Controlled substance eRx refill - RxReferenceNumber: [id number]|1|0|1) diazepam 10 mg tablet RxNorm: 408968 Tablet(s) PO TAKE 1 TABLET BY MOUTH THREE TIMES DAILY NEEDED 11/21/20122013 Inactive (Appended: Controlled substance eRx refill - RxReferenceNumber: [id number]|1|0|1) Vitamin B-12 1,000 mcg/mL Injection RxNorm: 517295 1 Milliliter(s) Inj 11/16/2012 11/16/2012 Inactive hydrocodone 10 mg-acetaminophen 325 mg tablet RxNorm: 7864058 1 or 2 Tablet(s) PO Q6 PRN limit 6 per day 10/24/20122012 Inactive (Appended: Controlled substance eRx refill - RxReferenceNumber: [id number]|1|0|1) hydrocodone 10 mg-acetaminophen 325 mg tablet RxNorm: 4884920 Tablet(s) PO limit 5x days 10/24/2012 10/23/2012 Inactive (Appended: Controlled substance eRx refill - RxReferenceNumber: [id number]|1|0|1) Savella 100 mg tablet RxNorm: 357129 Tablet(s) PO TAKE 1 TABLET BY MOUTH DAILY 10/14/2012 12/05/2014 Inactive Tubersol 5 tub. unit/0.1 mL Intradermal RxNorm: 299920 Milliliter(s) IDrm 09/26/2012 09/26/2012 Inactive hydrocodone 10 mg-acetaminophen 325 mg tablet RxNorm: 1236916 1 Tablet(s) PO Q4 PRN q 4 hr prn limit 5 per day 09/19/2012 No Stop Date Active (Appended: Controlled substance eRx refill - RxReferenceNumber: [id number]|1|0|1) hydrocodone 10 mg-acetaminophen 325 mg tablet RxNorm: 6133737 Tablet(s) PO TAKE 1 TABLET BY MOUTH FOUR TIMES DAILY 09/16/2012 10/23/2012 Inactive (Appended: Controlled substance eRx refill - RxReferenceNumber: [id number]|1|0|1) cyclobenzaprine 10 mg tablet RxNorm: 437493 Tablet(s) PO TAKE ONE TABLET BY MOUTH THREE TIMES DAILY 09/16/2012 09/25/2013 Inactive hydrocodone 10 mg-acetaminophen 325 mg tablet RxNorm: 2238831 1 Tablet(s) PO Q4 PRN q 4 hr prn limit 5 per day 09/14/2012 09/19/2012 Inactive (Appended: Controlled substance eRx refill - RxReferenceNumber: [id number]|1|0|1) cyanocobalamin (vitamin B-12) 1,000 mcg/mL Injection RxNorm: 956627 1 Milliliter(s ) Inj 09/12/2012 09/12/2012 Inactive cyclobenzaprine 10 mg tablet RxNorm: 732410 Tablet(s) PO TAKE ONE TABLET BY MOUTH THREE TIMES DAILY 09/02/2012 09/15/2012 Inactive hydrocodone 10 mg-acetaminophen 325 mg tablet RxNorm: 0335506 1 Tablet(s) PO QID TAKE 1 TABLET BY MOUTH FOUR TIMES DAILY 08/23/2012 09/13/2012 Inactive (Appended: Controlled substance eRx refill - RxReferenceNumber: [id number]|1|0|1) Kenalog 40 mg/mL Susp for Injection RxNorm: 9267066 1 Milliliter(s) Inj 08/11/2012 08/11/2012 Inactive Vitamin B-12 1,000 mcg/mL Injection RxNorm: 323725 1 Milliliter(s) Inj 08/11/2012 08/11/2012 Inactive Zithromax 250 mg tablet RxNorm: 215772 Tablet(s) PO 07/21/2012 09/14/2012 Inactive please give z lauro cefdinir 300 mg capsule RxNorm: 181882 1 Capsule(s) PO BID 07/20/2012 Inactive cefdinir 300 mg capsule RxNorm: 748302 1 Capsule(s) PO BID 07/27/2012 Inactive diazepam 10 mg tablet RxNorm: 956686 1 Tablet(s) PO TID PRN 12/201211/22/2012 Inactive TAKE 1 TABLET BY MOUTH THREE TIMES DAILY NEEDED (Appended: Controlled substance eRx refill - RxReferenceNumber: [id number]|1|0|1) Vitamin B-12 1,000 mcg/mL Injection RxNorm: 124283 1 Milliliter(s) Inj 07/13/2012 07/13/2012 Inactive pantoprazole 40 mg tablet,delayed release RxNorm: 876720 1 Tablet(s) PO daily 06/14/2012 06/13/2012 Inactive pantoprazole 40 mg tablet,delayed release RxNorm: 892077 1 Tablet(s) PO daily 06/14/2012 06/19/2013 Inactive trazodone 100 mg tablet RxNorm: 538232 Tablet(s) PO TAKE 2 TABLETS BY MOUTH EVERY NIGHT AT BEDTIME 06/06/2012 11/05/2016 Inactive hydrocodone 10 mg-acetaminophen 325 mg tablet RxNorm: 6321774 Tablet(s) PO TAKE 1 TABLET BY MOUTH FOUR TIMES DAILY 05/24/2012 08/23/2012 Inactive (Appended: Controlled substance eRx refill - RxReferenceNumber: [id number]|1|0|1) Symbicort 160 mcg-4.5 mcg/actuation HFA Aerosol Inhaler RxNorm: 7461531 1 INH daily 05/24/2012 05/23/2012 Inactive this is an increase in dosing Symbicort 160 mcg-4.5 mcg/actuation HFA Aerosol Inhaler RxNorm: 8270788 1 INH daily 05/24/2012 06/17/2013 Inactive this is an increase in dosing Ventolin HFA 90 mcg/actuation Aerosol Inhaler RxNorm: 628327 1 or 2 Puff(s) INH Q6 PRN 05/24/2012 05/23/2012 Inactive Ventolin HFA 90 mcg/actuation Aerosol Inhaler RxNorm: 582699 1 or 2 Puff(s) INH Q6 PRN 05/24/2012 02/19/2013 Inactive metoprolol tartrate 25 mg tablet RxNorm: 049198 Tablet(s) PO TAKE 1/2 TABLET BY MOUTH TWICE DAILY 05/24/2012 05/18/2013 Inactive hydrocodone-acetaminophen 10 mg-325 mg tablet RxNorm: 9611377 Tablet(s) PO TAKE 1 TABLET BY MOUTH FOUR TIMES DAILY 05/17/2012 05/17/2012 Inactive (Appended: Controlled substance eRx refill - RxReferenceNumber: [id number]|1|0|1) diazepam 10 mg tablet RxNorm: 407401 Tablet(s) PO 05/03/2012 07/13/2012 Inactive TAKE 1 TABLET BY MOUTH THREE TIMES DAILY NEEDED (Appended: Controlled substance eRx refill - RxReferenceNumber: [id number]|1|0|1) metoprolol tartrate 25 mg tablet RxNorm: 809801 Tablet(s) PO 11/05/2016 Inactive TAKE 1/2 TABLET BY MOUTH TWICE DAILY hydrocodone-acetaminophen 10 mg-325 mg tablet RxNorm: 9681811 Tablet(s) PO 04/11/2012 05/17/2012 Inactive TAKE 1 TABLET BY MOUTH FOUR TIMES DAILY (Appended: Controlled substance eRx refill - RxReferenceNumber: [id number]|1|0|1) ProAir HFA 90 mcg/actuation Aerosol Inhaler RxNorm: 457108 2 INH Q4 PRN 04/05/2012 04/29/2013 Inactive Symbicort 80 mcg-4.5 mcg/actuation HFA Aerosol Inhaler RxNorm: 8186798 2 INH BID 04/05/2012 04/04/2012 Inactive Symbicort 80 mcg-4.5 mcg/actuation HFA Aerosol Inhaler RxNorm: 1297430 2 INH BID 04/05/2012 05/23/2012 Inactive ProAir HFA 90 mcg/actuation Aerosol Inhaler RxNorm: 555208 2 INH Q4 PRN 04/05/2012 04/04/2012 Inactive diazepam 10 mg tablet RxNorm: 388477 Tablet(s) PO 03/17/2012 05/03/2012 Inactive TAKE 1 TABLET BY MOUTH THREE TIMES DAILY NEEDED (Appended: Controlled substance eRx refill - RxReferenceNumber: [id number]|1|0|1) Effexor XR 150 mg capsule,extended release RxNorm: 587256 Capsule(s) PO 03/13/2012 03/15/2013 Inactive TAKE 1 CAPSULE BY MOUTH TWICE DAILY fluconazole 150 mg tablet RxNorm: 477562 1 Tablet(s) PO daily 03/11/2012 03/17/2012 Inactive Lipitor 20 mg tablet RxNorm: 422178 Tablet(s) PO 02/25/2012 03/20/2013 Inactive TAKE ONE TABLET BY MOUTH EVERY NIGHT AT BEDTIME Seroquel 100 mg tablet RxNorm: 902545 1 Tablet(s) PO BID 201102/18/2013 Inactive TAKE 1 TABLET BY MOUTH TWICE DAILY hydrocodone-acetaminophen 10 mg-325 mg tablet RxNorm: 1720982 Tablet(s) PO 02/25/2012 04/11/2012 Inactive TAKE 1 TABLET BY MOUTH FOUR TIMES DAILY . (Appended : Controlled substance eRx refill - RxReferenceNumber: [id number]|1|0|1) Seroquel 100 mg tablet RxNorm: 530021 1 Tablet(s) PO BID 201102/24/2012 Inactive TAKE 1 TABLET BY MOUTH TWICE DAILY Nexium 40 mg capsule,delayed release RxNorm: 250348 1 Capsule(s) PO daily 02/16/2012 06/13/2012 Inactive Effexor XR 150 mg capsule,extended release RxNorm: 587064 Capsule(s) PO 01/14/2012 11/05/2016 Inactive TAKE 1 CAPSULE BY MOUTH TWICE DAILY Kenalog 40 mg/mL Susp for Injection RxNorm: 1697181 1 Milliliter(s) Inj 01/13/2012 01/13/2012 Inactive Vitamin B-12 1,000 mcg/mL Injection RxNorm: 921726 Milliliter(s) Inj 12/21/2011 12/21/2011 Inactive hydrocodone-acetaminophen 10 mg-325 mg tablet RxNorm: 5048358 Tablet(s) PO 12/15/2011 02/25/2012 Inactive TAKE 1 TABLET BY MOUTH FOUR TIMES DAILY (Appended: Controlled substance eRx refill - RxReferenceNumber: [id number]|1|0|1) diazepam 10 mg tablet RxNorm: 547534 Tablet(s) PO 12/15/2011 03/17/2012 Inactive TAKE 1 TABLET BY MOUTH THREE TIMES DAILY NEEDED (Appended: Controlled substance eRx refill - RxReferenceNumber: [id number]|1|0|1) diazepam 10 mg Tab RxNorm: 250817 1 Tablet(s) PO daily 201112/15/2011 Inactive TAKE 1 TABLET BY MOUTH THREE TIMES DAILY (Appended: Controlled substance eRx refill - RxReferenceNumber: [id number]|1|0|1) hydrocodone-acetaminophen 10 mg-325 mg Tab RxNorm: 4784673 1 Tablet(s) PO QID 12/14/2011 12/15/2011 Inactive TAKE 1 TABLET BY MOUTH FOUR TIMES DAILY (Appended: Controlled substance eRx refill - RxReferenceNumber: [id number]|1|0|1) Seroquel 100 mg tablet RxNorm: 459310 Tablet(s) PO 11/27/2011 03/15/2013 Inactive TAKE 1 TABLET BY MOUTH TWICE DAILY hydrocodone-acetaminophen 10 mg-325 mg Tab RxNorm: 7317371 1 Tablet(s) PO QID 11/27/2011 12/13/2011 Inactive TAKE 1 TABLET BY MOUTH FOUR TIMES DAILY (Appended: Controlled substance eRx refill - RxReferenceNumber: [id number]|1|0|1) Seroquel 100 mg Tab RxNorm: 644419 1 Tablet(s) PO BID 201111/26/2011 Inactive Seroquel 100 mg tablet RxNorm: 399052 Tablet(s) PO 11/27/2011 02/16/2012 Inactive TAKE 1 TABLET BY MOUTH TWICE DAILY Nexium 40 mg capsule,delayed release RxNorm: 627774 1 Capsule(s) PO daily 11/16/2011 02/15/2012 Inactive cyanocobalamin (vitamin B-12) 1,000 mcg/mL Injection RxNorm: 208429 1 Milliliter(s ) Inj 10/30/2011 10/30/2011 Inactive hydrocodone-acetaminophen 10 mg-325 mg Tab RxNorm: 8116359 1 Tablet(s) PO QID 10/13/2011 11/23/2011 Inactive TAKE 1 TABLET BY MOUTH FOUR TIMES DAILY (Appended: Controlled substance eRx refill - RxReferenceNumber: [id number]|1|0|1) Effexor XR 150 mg capsule,extended release RxNorm: 284394 1 Capsule(s) PO BID 10/12/2011 01/09/2012 Inactive Fish Oil 1,000 mg Cap RxNorm: 1 Capsule(s) PO QID 10/02/2011 No Stop Date Active Vitamin B-12 1,000 mcg/mL Injection RxNorm: 401268 Milliliter(s) Inj 10/02/2011 10/02/2011 Inactive Kenalog 40 mg/mL Susp for Injection RxNorm: 1058194 Milliliter(s) Inj 10/02/2011 10/02/2011 Inactive diazepam 10 mg Tab RxNorm: 894923 1 Tablet(s) PO daily 201112/13/2011 Inactive TAKE 1 TABLET BY MOUTH THREE TIMES DAILY (Appended: Controlled substance eRx refill - RxReferenceNumber: [id number]|1|0|1) Vitamin B-12 1,000 mcg/mL Injection RxNorm: 164926 Milliliter(s) Inj 09/01/2011 09/01/2011 Inactive hydrocodone-acetaminophen 10 mg-325 mg Tab RxNorm: 5022814 1 Tablet(s) PO QID 08/25/2011 10/05/2011 Inactive TAKE 1 TABLET BY MOUTH FOUR TIMES DAILY (Appended: Controlled substance eRx refill - RxReferenceNumber: [id number]|1|0|1) diazepam 10 mg Tab RxNorm: 332512 Tablet(s) PO 08/10/2011 No Stop Date Active TAKE 1 TABLET BY MOUTH THREE TIMES DAILY (Appended: Controlled substance eRx refill - RxReferenceNumber: [id number]|1|0|1) Vitamin B-12 1,000 mcg/mL Injection RxNorm: 408333 Milliliter(s) Inj 08/03/2011 08/03/2011 Inactive fluticasone 50 mcg/actuation Nasal [place], Susp RxNorm: 1449617 2 [place] NASAL BID 07/27/2011 08/19/2012 Inactive hydrocodone-acetaminophen 10 mg-325 mg Tab RxNorm: 0817915 Tablet(s) PO 07/09/2011 08/24/2011 Inactive TAKE 1 TABLET BY MOUTH FOUR TIMES DAILY (Appended: Controlled substance eRx refill - RxReferenceNumber: [id number]|1|0|1) diazepam 10 mg Tab RxNorm: 497505 Tablet(s) PO 07/09/2011 08/09/2011 Inactive TAKE 1 TABLET BY MOUTH THREE TIMES DAILY (Appended: Controlled substance eRx refill - RxReferenceNumber: [id number]|1|0|1) diazepam 10 mg Tab RxNorm: 566789 Tablet(s) PO 07/08/2011 07/08/2011 Inactive TAKE 1 TABLET BY MOUTH THREE TIMES DAILY (Appended: Controlled substance eRx refill - RxReferenceNumber: [id number]|1|0|1) hydrocodone-acetaminophen 10 mg-325 mg Tab RxNorm: 0313940 Tablet(s) PO 07/08/2011 07/08/2011 Inactive TAKE 1 TABLET BY MOUTH FOUR TIMES DAILY (Appended: Controlled substance eRx refill - RxReferenceNumber: [id number]|1|0|1) cyclobenzaprine 10 mg tablet RxNorm: 507703 Tablet(s) PO 201109/01/2012 Inactive TAKE ONE TABLET BY MOUTH THREE TIMES DAILY Lipitor 40 mg Tab RxNorm: 232581 1 Tablet(s) PO daily 201106/16/2011 Inactive Lipitor 40 mg Tab RxNorm: 108334 1 Tablet(s) PO daily 201106/10/2012 Inactive trazodone 100 mg tablet RxNorm: 916412 Tablet(s) PO 06/02/2011 06/05/2012 Inactive TAKE 2 TABLETS BY MOUTH EVERY NIGHT AT BEDTIME diazepam 10 mg Tab RxNorm: 038807 Tablet(s) PO 05/28/2011 05/29/2011 Inactive TAKE 1 TABLET BY MOUTH THREE TIMES DAILY (Appended: Controlled substance eRx refill - RxReferenceNumber: [id number]|1|0|1) diazepam 10 mg Tab RxNorm: 870501 Tablet(s) PO 05/28/2011 07/08/2011 Inactive TAKE 1 TABLET BY MOUTH THREE TIMES DAILY (Appended: Controlled substance eRx refill - RxReferenceNumber: [id number]|1|0|1) hydrocodone-acetaminophen 10 mg-325 mg Tab RxNorm: 0350710 1 Tablet(s) PO QID 05/26/2011 07/08/2011 Inactive metoprolol tartrate 25 mg tablet RxNorm: 079982 Tablet(s) PO 04/10/2012 Inactive TAKE 1/2 TABLET BY MOUTH TWICE DAILY Savella 100 mg tablet RxNorm: 452772 Tablet(s) PO 05/14/2011 10/13/2012 Inactive TAKE 1 TABLET BY MOUTH DAILY Influenza Virus Vaccine 0.5 mL RxNorm: IM 02/23/2011 02/23/2011 Inactive B12 1000 mcg RxNorm: IM 02/23/20112010 Inactive hydrocodone-acetaminophen 10 mg-325 mg Tab RxNorm: 1431876 1 Tablet(s) PO QID 01/29/2011 01/28/2011 Inactive Restasis 0.05 % eye drops in a dropperette RxNorm: 630949 1 OPH BID No Start Date Active vitamin A-vit C-vit E-zinc-Se Tab RxNorm: 1 Tablet(s) PO daily No Start Date Active garlic extract Oral RxNorm: Oral No Start Date Active Acidophilus Tab RxNorm : 2 Tablet(s) PO QHS No Start Date Active Cranberry Concentrate Cap RxNorm: 1 Capsule(s) PO BID No Start Date Active Xopenex 1.25 mg/3 mL Neb Solution RxNorm: 418454 1 Milliliter(s) INH TID No Start Date Active niacin ER 500 mg Tab RxNorm: 097991 2 Tablet(s) PO HS No Start Date Active SenokotXTRA 17.2 mg Tab RxNorm: 5899664 Oral No Start Date Active Lotemax 0.5 % eye ointment RxNorm: 6598104 1 OPH QHS No Start Date Active Gaviscon Extra Strength Oral RxNorm: Oral No Start Date Active melatonin 3 mg Tab RxNorm: 312079 1 Tablet(s) PO QHS No Start Date Active Voltaren 1 % Topical Gel RxNorm: 527874 4 Gram(s) TOP QID No Start Date Active Vitamin D 1,000 unit Cap RxNorm: 925547 1 Capsule(s) PO QHS No Start Date Active Mucinex DM 30 mg-600 mg 12 hr Tab RxNorm: 7247046 1 Tablet(s) PO BID No Start Date Active calcium citrate 200 mg (950 mg) Tab RxNorm: 546860 1 Tablet(s) PO QID No Start Date Active valerian 530 mg Cap RxNorm: 2 Capsule(s) PO QHS No Start Date Active Anucort-HC 25 mg Suppository RxNorm: 6165106 1 Suppository RTL QDAY PRN No Start Date 01/14/2014 Inactive Nexium 40 mg Capsule, delayed release RxNorm: 370384 1 Capsule(s) PO daily No Start Date 11/15/2011 Inactive Lipitor 20 mg tablet RxNorm: 755154 1 Tablet(s) PO QHS No Start Date 02/25/2012 Inactive mupirocin 2 % topical ointment RxNorm: 975815 1 Application TOP PRN No Start Date 10/16/2013 Inactive fluconazole 150 mg tablet RxNorm: 367485 1 Tablet(s) PO daily No Start Date 03/10/2012 Inactive Fish Oil 1,000 mg Cap RxNorm: 1 Capsule(s) PO TID No Start Date 10/01/2011 Inactive hydrocodone-acetaminophen 10 mg-325 mg Tab RxNorm: 4951806 1 Tablet(s) PO QID No Start Date 05/25/2011 Inactive Zithromax 250 mg tablet RxNorm: 840495 Tablet(s) PO No Start Date 07/20/2012 Inactive please give z lauro prednisone 10 mg tablet RxNorm: 102598 Tablet(s) PO taper. 6-5-4-3-2-1 # 21 No Start Date 09/16/2017 Inactive fluticasone 50 mcg/actuation Nasal [place], Susp RxNorm: 0081110 2 [place] NASAL BID No Start Date 07/26/2011 Inactive Seroquel 100 mg Tab RxNorm: 016577 1 Tablet(s) PO BID No Start Date 11/26/2011 Inactive nystatin 100,000 unit/gram topical powder RxNorm: 874870 1 Application TOP QID until healed No Start Date 10/26/2016 Inactive Savella 100 mg Tab RxNorm: 920200 1 Tablet(s) PO daily No Start Date 05/13/2011 Inactive cyclobenzaprine 10 mg Tab RxNorm: 304301 1 Tablet(s) PO TID No Start Date 07/05/2011 Inactive metoprolol tartrate 25 mg Tab RxNorm: 257988 1/2 Tablet(s) PO BID No Start Date 05/25/2011 Inactive trazodone 100 mg Tab RxNorm: 764026 2 Tablet(s) PO QHS No Start Date 06/01/2011 Inactive Zithromax Z-Lauro 250 mg tablet RxNorm: 973897 1 Tablet(s) PO UD No Start Date 07/11/2015 Inactive z lauro Effexor XR 150 mg 24 hr Cap RxNorm: 259990 1 Capsule(s) PO BID No Start Date 10/11/2011 Inactive diazepam 10 mg Tab RxNorm: 083246 1 Tablet(s) PO TID No Start Date 05/28/2011 Inactive tramadol 50 mg tablet RxNorm: 595275 1-2 Tablet(s) PO Q6 as needed No Start Date 05/28/2015 Inactive Medication Administered Medication Codes Instructions Start Date Status cyanocobalamin (vit B-12) 1,000 mcg/mL injection solution RxNorm: 424070 1Milliliter 03/10/2018 No longer Active cyanocobalamin (vit B-12) 1,000 mcg/mL injection solution RxNorm: 569351 1Milliliter 10/19/2017 No longer Active cyanocobalamin (vit B-12) 1,000 mcg/mL injection solution RxNorm: 343499 1Milliliter 08/19/2017 No longer Active cyanocobalamin (vit B-12) 1,000 mcg/mL injection solution RxNorm: 309179 1Milliliter 07/06/2017 No longer Active cyanocobalamin (vit B-12) 1,000 mcg/mL injection solution RxNorm: 379704 1Milliliter 04/27/2017 No longer Active cyanocobalamin (vit B-12) 1,000 mcg/mL injection solution RxNorm: 944291 1Milliliter 11/17/2016 No longer Active cyanocobalamin (vit B-12) 1,000 mcg/mL injection solution RxNorm: 208846 1Milliliter 10/12/2016 No longer Active cyanocobalamin (vit B-12) 1,000 mcg/mL injection solution RxNorm: 946669 1Milliliter 09/11/2016 No longer Active cyanocobalamin (vit B-12) 1,000 mcg/mL injection solution RxNorm: 562327 Milliliter 07/03/2016 No longer Active cyanocobalamin (vit B-12) 1,000 mcg/mL injection solution RxNorm: 805185 1Milliliter 04/20/2016 No longer Active cyanocobalamin (vit B-12) 1,000 mcg/mL injection solution RxNorm: 931580 Milliliter 02/13/2016 No longer Active cyanocobalamin (vit B-12) 1,000 mcg/mL injection solution RxNorm: 956001 1Milliliter 12/02/2015 No longer Active cyanocobalamin (vit B-12) 1,000 mcg/mL injection solution RxNorm: 386337 1Milliliter 10/29/2015 No longer Active cyanocobalamin (vit B-12) 1,000 mcg/mL injection solution RxNorm: 953247 Milliliter 06/10/2015 No longer Active cyanocobalamin (vit B-12) 1,000 mcg/mL injection solution RxNorm: 814048 Milliliter 02/15/2014 No longer Active cyanocobalamin (vit B-12) 1,000 mcg/mL injection kit RxNorm : 259439 1Milliliter 01/15/2014 No longer Active Kenalog 40 mg/mL suspension for injection RxNorm: 0826264 1Milliliter 01/15/2014 No longer Active cyanocobalamin (vit B-12) 1,000 mcg/mL injection solution RxNorm: 944421 1Milliliter 12/04/2013 No longer Active Vitamin B-12 1,000 mcg/mL injection solution RxNorm: 028598 Milliliter 07/24/2013 No longer Active Vitamin B-12 1,000 mcg/mL injection solution RxNorm: 396937 1Milliliter 05/10/2013 No longer Active Kenalog 40 mg/mL Susp for Injection RxNorm: 1095619 Milliliter 03/06/2013 No longer Active cyanocobalamin (vitamin B-12) 1,000 mcg/mL Injection RxNorm : 059275 Milliliter 02/20/2013 No longer Active Kenalog 40 mg/mL Susp for Injection RxNorm: 7254895 Milliliter 12/26/2012 No longer Active cyanocobalamin (vitamin B-12) 1,000 mcg/mL Injection RxNorm : 504138 Milliliter 12/21/2012 No longer Active Vitamin B-12 1,000 mcg/mL Injection RxNorm: 907038 1Milliliter 11/16/2012 No longer Active Tubersol 5 tub. unit/0.1 mL Intradermal RxNorm: 734614 Milliliter 09/26/2012 No longer Active cyanocobalamin (vitamin B-12) 1,000 mcg/mL Injection RxNorm : 161380 1Milliliter 09/12/2012 No longer Active Kenalog 40 mg/mL Susp for Injection RxNorm: 9186205 1Milliliter 08/11/2012 No longer Active Vitamin B-12 1,000 mcg/mL Injection RxNorm: 674647 1Milliliter 08/11/2012 No longer Active Vitamin B-12 1,000 mcg/mL Injection RxNorm: 597677 1Milliliter 07/13/2012 No longer Active Kenalog 40 mg/mL Susp for Injection RxNorm: 6387905 1Milliliter 01/13/2012 No longer Active Vitamin B-12 1,000 mcg/mL Injection RxNorm: 543333 Milliliter 12/21/2011 No longer Active cyanocobalamin (vitamin B-12) 1,000 mcg/mL Injection RxNorm : 468600 1Milliliter 10/30/2011 No longer Active Vitamin B-12 1,000 mcg/mL Injection RxNorm: 047387 Milliliter 10/02/2011 No longer Active Kenalog 40 mg/mL Susp for Injection RxNorm: 9496184 Milliliter 10/02/2011 No longer Active Vitamin B-12 1,000 mcg/mL Injection RxNorm: 005530 Milliliter 09/01/2011 No longer Active Vitamin B-12 1,000 mcg/mL Injection RxNorm: 931034 Milliliter 08/03/2011 No longer Active B12 1000 [...] 2011 Weight gain ICD-9: 783.1 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 10/2010 Reason For Visit [...] injuries from a fall (hurts after sitting "[place] style" abdominal pain 02/12/2011 joint complaint 01/29/2011 Results Observation Observation Code Item Item Code Result Date Comp Metabolic Sme600 NA 138 mEq/L 09/20/2017 Comp Metabolic Rge657 K 4.1 mEq/L 09/20/2017 Comp Metabolic Skq627 CL 101 mEq/L 09/20/2017 Comp Metabolic Uks132 CO2 25.0 mEq/L 09/20/2017 Comp Metabolic Ztt261 ANION GAP 16 09/20/2017 Comp Metabolic Nwj435 GLUCOSE 105 mg/dL 09/20/2017 Comp Metabolic Gci851 Creat 0.8 mg/dL 09/20/2017 Comp Metabolic Zwm535 eGFR 86 ml/min/1.73m2 09/20/2017 Comp Metabolic Pnx359 BUN 24 mg/dL 09/20/2017 Comp Metabolic Pju320 B/C Ratio 31.6 Ratio 09/20/2017 Comp Metabolic Isl128 CALCIUM 10.0 mg/dL 09/20/2017 Comp Metabolic Grh017 ALK PHOS 63 U/L 09/20/2017 Comp Metabolic Wmf573 AST(SGOT) 28 U/L 09/20/2017 Comp Metabolic Cqj553 ALT(SGPT) 34 U/L 09/20/2017 Comp Metabolic Ujl751 BILI T 0.3 mg/dL 09/20/2017 Comp Metabolic Pap574 ALBUMIN 4.8 g/dL 09/20/2017 Comp Metabolic Gwb296 TPRO 7.2 g/dL 09/20/2017 Comp Metabolic Qda003 GLOB 2.4 g/dL 09/20/2017 Comp Metabolic Fhl277 A/G Ratio 2.0 Ratio 09/20/2017 Comp Metabolic Sdw513 Osmo 280 mOsmo 09/20/2017 Urine Culture Ucult Preliminary NO Growth Day 1 09/20/2017 Urine Culture Ucult Complete NO Growth Day 2 09/20/2017 Vitamin D 25 Oh [id number] VITAMIN D, 25 HYDROXY 46.43 ng/mL Comp Metabolic Lyl184 NA 143 mEq/L 08/25/2017 Comp Metabolic Zfd876 K 4.1 mEq/L 08/25/2017 Comp Metabolic Hiz550 CL 102 mEq/L 08/25/2017 Comp Metabolic Nmf645 CO2 33.0 mEq/L 08/25/2017 Comp Metabolic Qzx199 ANION GAP 12 08/25/2017 Comp Metabolic Yut757 GLUCOSE 99 mg/dL 08/25/2017 Comp Metabolic Xir991 Creat 0.8 mg/dL 08/25/2017 Comp Metabolic Frn365 eGFR 86 ml/min/1.73m2 08/25/2017 Comp Metabolic Nei151 BUN 19 mg/dL 08/25/2017 Comp Metabolic Usb405 B/C Ratio 25.0 Ratio 08/25/2017 Comp Metabolic Kiy049 CALCIUM 9.5 mg/dL 08/25/2017 Comp Metabolic Dgr118 ALK PHOS 63 U/L 08/25/2017 Comp Metabolic Zni766 AST(SGOT) 17 U/L 08/25/2017 Comp Metabolic Atb723 ALT(SGPT) 20 U/L 08/25/2017 Comp Metabolic Mlq675 BILI T 0.3 mg/dL 08/25/2017 Comp Metabolic Khn080 ALBUMIN 4.5 g/dL 08/25/2017 Comp Metabolic Hlq146 TPRO 6.6 g/dL 08/25/2017 Comp Metabolic Otv089 GLOB 2.1 g/dL 08/25/2017 Comp Metabolic Jjp577 A/G Ratio 2.1 Ratio 08/25/2017 Comp Metabolic Bfa014 Osmo 287 mOsmo 08/25/2017 B12 Muz357 B12 904.00 pg/ml 08/25/2017 Tsh Ord6 TSH [...] 103.4 fl 08/25/2017 Cbc With Differential Ord2 [place]% 7.5 % 08/25/2017 Cbc With Differential Ord2 [...] 3.65 K/ul 08/25/2017 Cbc With Differential Ord2 [place] ABS# 0.6 K/ul 08/25/2017 Cbc With Differential Ord2 Eos ABS# 0.1 K/ul 08/25/2017 Cbc With Differential Ord2 Baso ABS# 0.0 K/ul 08/25/2017 Tsh Ord6 hTSH II 1.18 uIU/mL 10/12/2016 Comp Metabolic Ebc585 NA 139 mEq/L 10/12/2016 Comp Metabolic Cox492 K 3.5 mEq/L 10/12/2016 Comp Metabolic Kkg604 CL 102 mEq/L 10/12/2016 Comp Metabolic Mil497 CO2 25.0 mEq/L 10/12/2016 Comp Metabolic Uek650 ANION GAP 16 10/12/2016 Comp Metabolic Otv640 GLUCOSE 84 mg/dL 10/12/2016 Comp Metabolic Kum363 Creat 0.6 mg/dL 10/12/2016 Comp Metabolic Eeo406 eGFR 105 ml/min/1.73m2 10/12/2016 Comp Metabolic Sbq044 BUN 12 mg/dL 10/12/2016 Comp Metabolic Cdg649 B/C Ratio 18.8 Ratio 10/12/2016 Comp Metabolic Vnh732 CALCIUM 9.2 mg/dL 10/12/2016 Comp Metabolic Alc775 ALK PHOS 59 U/L 10/12/2016 Comp Metabolic Czb097 AST(SGOT) 21 U/L 10/12/2016 Comp Metabolic Rgw295 ALT(SGPT) 27 U/L 10/12/2016 Comp Metabolic Sqt209 BILI T 0.2 mg/dL 10/12/2016 Comp Metabolic Hag990 ALBUMIN 4.4 g/dL 10/12/2016 Comp Metabolic Lrd862 TPRO 6.7 g/dL 10/12/2016 Comp Metabolic Cnd809 GLOB 2.3 g/dL 10/12/2016 Comp Metabolic Fuf165 A/G Ratio 1.9 Ratio 10/12/2016 Comp Metabolic Lvk078 Osmo 276 mOsmo 10/12/2016 Cbc With Differential [...] 103.0 fl 10/12/2016 Cbc With Differential Ord2 [place]% 8.0 [...] Ord30 C/HDL 2.6 Ratio 10/12/2016 Comp Metabolic Sno599 NA 139 mEq/L 09/11/2016 Comp Metabolic Rsg403 K 3.6 mEq/L 09/11/2016 Comp Metabolic Zgc587 CL 102 mEq/L 09/11/2016 Comp Metabolic Wtx047 CO2 26.0 mEq/L 09/11/2016 Comp Metabolic Rls960 ANION GAP 15 09/11/2016 Comp Metabolic Zhg099 GLUCOSE 90 mg/dL 09/11/2016 Comp Metabolic Wym688 Creat 0.6 mg/dL 09/11/2016 Comp Metabolic Ocu216 eGFR 111 ml/min/1.73m2 09/11/2016 Comp Metabolic Omd640 BUN 14 mg/dL 09/11/2016 Comp Metabolic Dhl175 B/C Ratio 23.0 Ratio 09/11/2016 Comp Metabolic Wob097 CALCIUM 9.0 mg/dL 09/11/2016 Comp Metabolic Lgu793 ALK PHOS 56 U/L 09/11/2016 Comp Metabolic Olu701 AST(SGOT) 21 U/L 09/11/2016 Comp Metabolic Von054 ALT(SGPT) 17 U/L 09/11/2016 Comp Metabolic Usx974 BILI T 0.2 mg/dL 09/11/2016 Comp Metabolic Ljy854 ALBUMIN 4.1 g/dL 09/11/2016 Comp Metabolic Jxb156 TPRO 6.5 g/dL 09/11/2016 Comp Metabolic Rvr322 GLOB 2.4 g/dL 09/11/2016 Comp Metabolic Snp011 A/G Ratio 1.7 Ratio 09/11/2016 Comp Metabolic Mko258 Osmo 278 mOsmo 09/11/2016 Tsh Ord6 hTSH [...] Lipid Ord30 C/HDL 2.3 Ratio 09/11/2016 B12 Qzp754 B12 474.00 pg/ml 09/11/2016 B12 Hdf518 B12 827.00 pg/ml 03/02/2016 Cbc With Differential [...] Crqnt CRP 0.1 mg/dl 02/28/2016 Comp Metabolic Vwr104 NA 136 mEq/L 02/28/2016 Comp Metabolic Uox658 K 4.0 mEq/L 02/28/2016 Comp Metabolic Upg469 CL 103 mEq/L 02/28/2016 Comp Metabolic Dsk012 CO2 27.0 mEq/L 02/28/2016 Comp Metabolic Jce075 ANION GAP 10 02/28/2016 Comp Metabolic Aoj875 GLUCOSE 138 mg/dL 02/28/2016 Comp Metabolic Zoi404 Creat 0.6 mg/dL 02/28/2016 Comp Metabolic Vhf650 eGFR 120 ml/min/1.73m2 02/28/2016 Comp Metabolic Unz134 BUN 15 mg/dL 02/28/2016 Comp Metabolic Bps708 B/C Ratio 26.3 Ratio 02/28/2016 Comp Metabolic Ruv533 CALCIUM 8.8 mg/dL 02/28/2016 Comp Metabolic Hsi563 ALK PHOS 58 U/L 02/28/2016 Comp Metabolic Btm740 AST(SGOT) 21 U/L 02/28/2016 Comp Metabolic Hrc810 ALT(SGPT) 21 U/L 02/28/2016 Comp Metabolic Atd109 BILI T 0.2 mg/dL 02/28/2016 Comp Metabolic Hhn403 ALBUMIN 3.8 g/dL 02/28/2016 Comp Metabolic Fqh586 TPRO 5.7 g/dL 02/28/2016 Comp Metabolic Sow765 GLOB 1.9 g/dL 02/28/2016 Comp Metabolic Sdv717 A/G Ratio 2.0 Ratio 02/28/2016 Comp Metabolic Zyr825 Osmo 275 mOsmo 02/28/2016 Tsh Ord6 hTSH II 1.25 uIU/mL 02/28/2016 B12 Wjc341 B12 >1500.00 pg/ml 01/11/2016 Vitamin D 25 Oh Qwc9128 VITAMIN D, 25 HYDROXY 45.94 ng/mL Comp Metabolic Zod830 NA 136 mEq/L 03/21/2015 Comp Metabolic Ftt055 K 3.8 mEq/L 03/21/2015 Comp Metabolic Uve443 CL 101 mEq/L 03/21/2015 Comp Metabolic Lzg599 CO2 31.0 mEq/L 03/21/2015 Comp Metabolic Iqe292 ANION GAP 8 03/21/2015 Comp Metabolic Vuv701 GLUCOSE 101 mg/dL 03/21/2015 Comp Metabolic Xnq918 Creat 0.7 mg/dL 03/21/2015 Comp Metabolic Gxx863 eGFR 94 ml/min/1.73m2 03/21/2015 Comp Metabolic Tqw815 BUN 13 mg/dL 03/21/2015 Comp Metabolic Cmx490 B/C Ratio 18.3 Ratio 03/21/2015 Comp Metabolic Qbw745 CALCIUM 9.3 mg/dL 03/21/2015 Comp Metabolic Xyf719 ALK PHOS 58 U/L 03/21/2015 Comp Metabolic Mei925 AST(SGOT) 18 U/L 03/21/2015 Comp Metabolic Sep071 ALT(SGPT) 22 U/L 03/21/2015 Comp Metabolic Ivs902 BILI T 0.3 mg/dL 03/21/2015 Comp Metabolic Aax149 ALBUMIN 4.4 g/dL 03/21/2015 Comp Metabolic Rvv097 TPRO 6.7 g/dL 03/21/2015 Comp Metabolic Hps797 GLOB 2.3 g/dL 03/21/2015 Comp Metabolic Wve782 A/G Ratio 1.9 Ratio 03/21/2015 Comp Metabolic Uso088 Osmo 272 mOsmo 03/21/2015 %Hba1C Esw213 % HbA1c 29776-3 5.4 % 03/21/2015 %Hba1C Ilk303 Gluc Ave 108 mg/dL 03/21/2015 Cbc With [...] 1.32 uIU/mL 03/21/2015 URINALYSIS NONAUTO W/O SCOPE 31138 Specific [place] 1.025 DateTime(Free Text in Aprima) URINALYSIS NONAUTO W/O SCOPE 20706 PH 5.0 DateTime(Free Text in Aprima) URINALYSIS NONAUTO W/O SCOPE 08226 GLUCOSE NEG DateTime( Free Text in Aprima) URINALYSIS NONAUTO W/O SCOPE 86379 Protein NEG DateTime( Free Text in Aprima) URINALYSIS NONAUTO W/O SCOPE 57410 Blood NEG DateTime(Free Text in Aprima) URINALYSIS NONAUTO W/O SCOPE 43317 Bilirubin NEG DateTime(Free Text in Aprima) URINALYSIS NONAUTO W/O SCOPE 90597 Ketones NEG DateTime( Free Text in Aprima) URINALYSIS NONAUTO W/O SCOPE 78355 Urobilinogen NEG DateTime(Free Text in Aprima) URINALYSIS NONAUTO W/O SCOPE 08486 Nitrite NEG DateTime( Free Text in Aprima) URINALYSIS NONAUTO W/O SCOPE 17751 Leukocytes NEG DateTime(Free Text in Aprima) Review [...] Procedure Codes Date THER/PROPH/DIAG INJ SC/IM CPT-4: 98212 04/05/2018 VITAMIN B12 INJECTION CPT-4: J3420 04/05/2018 THER/PROPH/DIAG INJ SC/IM CPT-4: 09001 03/10/2018 VITAMIN B12 INJECTION CPT-4: J3420 03/10/2018 THER/PROPH/DIAG INJ SC/IM CPT-4: 12398 10/19/2017 VITAMIN B12 INJECTION CPT-4: J3420 10/19/2017 URINALYSIS NONAUTO W/O SCOPE CPT-4: 87619 09/17/2017 THER/PROPH/DIAG INJ SC/IM CPT-4: 71534 08/19/2017 VITAMIN B12 INJECTION CPT-4: J3420 08/19/2017 THER/PROPH/DIAG INJ SC/IM CPT-4: 40049 07/06/2017 VITAMIN B12 INJECTION CPT-4: J3420 07/06/2017 THER/PROPH/DIAG INJ SC/IM CPT-4: 13502 04/27/2017 VITAMIN B12 INJECTION CPT-4: J3420 04/27/2017 THER/PROPH/DIAG INJ SC/IM CPT-4: 02249 11/17/2016 VITAMIN B12 INJECTION CPT-4: J3420 11/17/2016 THER/PROPH/DIAG INJ SC/IM CPT-4: 30387 10/12/2016 VITAMIN B12 INJECTION CPT-4: J3420 10/12/2016 THER/PROPH/DIAG INJ SC/IM CPT-4: 12162 09/11/2016 VITAMIN B12 INJECTION CPT-4: J3420 09/11/2016 THER/PROPH/DIAG INJ SC/IM CPT-4: 36411 07/03/2016 VITAMIN B12 INJECTION CPT-4: J3420 07/03/2016 VITAMIN B12 INJECTION CPT-4: J3420 04/20/2016 THER/PROPH/DIAG INJ SC/IM CPT-4: 06359 04/20/2016 ADMIN INFLUENZA VIRUS VAC CPT-4: G0008 03/17/2016 IIV4 FLU VACC NO PRESERV ID Formatting Model/CDA Sections, Assigned to/Kathy Lopez SNOMED CT: [id number] CPT-4: 67339Leblwpj 03/17/2016 THER/PROPH/DIAG INJ SC/IM CPT-4: 42266 02/13/2016 VITAMIN B12 INJECTION CPT-4: J3420 02/13/2016 URINALYSIS NONAUTO W/O SCOPE CPT-4: 94650 12/10/2015 THER/PROPH/DIAG INJ SC/IM CPT-4: 62966 12/02/2015 VITAMIN B12 INJECTION CPT-4: J3420 12/02/2015 PNEUMOCOCCAL VACC [address]: [id number] CPT-4: 64488 12/02/2015 IMMUNIZATION ADMIN CPT -4: 90848 12/02/2015 THER/PROPH/DIAG INJ SC/IM CPT-4: 19060 10/29/2015 VITAMIN B12 INJECTION CPT-4: J3420 10/29/2015 THER/PROPH/DIAG INJ SC/IM CPT-4: 36079 06/10/2015 VITAMIN B12 INJECTION CPT-4: J3420 06/10/2015 THER/PROPH/DIAG INJ SC/IM CPT-4: 67611 02/15/2014 VITAMIN B12 INJECTION CPT-4: J3420 02/15/2014 TRIAMCINOLONE ACET INJ NOS CPT-4: J3301 01/15/2014 VITAMIN B12 INJECTION CPT-4: J3420 01/15/2014 THER/PROPH/DIAG INJ SC/IM CPT-4: 44090 12/04/2013 VITAMIN B12 INJECTION CPT-4: J3420 12/04/2013 THER/PROPH/DIAG INJ SC/IM CPT-4: 16318 07/24/2013 VITAMIN B12 INJECTION CPT-4: J3420 07/24/2013 PRESCRIP TRANSMIT VIA ERX SY CPT-4: G8553 06/12/2013 VITAMIN B12 INJECTION CPT-4: J3420 05/10/2013 THER/PROPH/DIAG INJ SC/IM CPT-4: 06363 05/10/2013 TRIAMCINOLONE ACET INJ NOS CPT-4: J3301 03/06/2013 PRESCRIP TRANSMIT VIA ERX SY CPT-4: G8553 03/06/2013 ADMIN INFLUENZA VIRUS VAC CPT-4: G0008 02/20/2013 FLULAVAL VACC, 3 YRS & >, IM CPT-4: Q2036 02/20/2013 THER/PROPH/DIAG INJ SC/IM CPT-4: 33747 02/20/2013 VITAMIN B12 INJECTION CPT-4: J3420 02/20/2013 THER/PROPH/DIAG INJ SC/IM CPT-4: 35363 12/26/2012 TRIAMCINOLONE ACET INJ NOS CPT-4: J3301 12/26/2012 THER/PROPH/DIAG INJ SC/IM CPT-4: 66020 12/21/2012 VITAMIN B12 INJECTION CPT-4: J3420 12/21/2012 THER/PROPH/DIAG INJ SC/IM CPT-4: 86934 11/16/2012 VITAMIN B12 INJECTION CPT-4: J3420 11/16/2012 TB INTRADERMAL TEST (includes injection fee) CPT-4: 04892 09/26/2012 THER/PROPH/DIAG INJ SC/IM CPT-4: 40485 09/12/2012 VITAMIN B12 INJECTION CPT-4: J3420 09/12/2012 TRIAMCINOLONE ACET INJ NOS CPT-4: J3301 08/11/2012 VITAMIN B12 INJECTION CPT-4: J3420 08/11/2012 THER/PROPH/DIAG INJ SC/IM CPT-4: 84250 08/11/2012 VITAMIN B12 INJECTION CPT-4: J3420 07/13/2012 THER/PROPH/DIAG INJ SC/IM CPT-4: 40555 07/13/2012 THER/PROPH/DIAG INJ SC/IM CPT-4: 03697 05/26/2012 TRIAMCINOLONE ACET INJ NOS CPT-4: J3301 05/26/2012 VITAMIN B12 INJECTION CPT-4: J3420 05/26/2012 ADMIN INFLUENZA VIRUS VAC CPT-4: G0008 03/02/2012 FLULAVAL VACC, 3 YRS & >, IM CPT-4: Q2036 03/02/2012 PRESCRIP TRANSMIT VIA ERX SY CPT-4: G8553 02/15/2012 TRIAMCINOLONE ACET INJ NOS CPT-4: J3301 01/13/2012 VITAMIN B12 INJECTION CPT-4: J3420 12/21/2011 VITAMIN B12 INJECTION CPT-4: J3420 10/30/2011 THER/PROPH/DIAG INJ SC/IM CPT-4: 42015 10/30/2011 THER/PROPH/DIAG INJ SC/IM CPT-4: 75856 10/02/2011 VITAMIN B12 INJECTION CPT-4: J3420 10/02/2011 TRIAMCINOLONE ACET INJ NOS CPT-4: J3301 10/02/2011 PRESCRIP TRANSMIT VIA ERX SY CPT-4: G8553 10/02/2011 VITAMIN B12 INJECTION CPT-4: J3420 09/01/2011 URINALYSIS NONAUTO W/O SCOPE CPT-4: 03461 08/03/2011 VITAMIN B12 INJECTION CPT-4: J3420 08/03/2011 THER/PROPH/DIAG INJ SC/IM CPT-4: 26679 08/03/2011 THER/PROPH/DIAG INJ SC/IM CPT-4: 84645 06/11/2011 VITAMIN B12 INJECTION CPT-4: J3420 06/11/2011 ROUTINE VENIPUNCTURE CPT-4: 71997 06/11/2011 THER/PROPH/DIAG INJ SC/IM CPT-4: 13695 02/23/2011 VITAMIN B12 INJECTION CPT-4: J3420 02/23/2011 ADMIN INFLUENZA VIRUS VAC CPT-4: G0008 02/23/2011 FLULAVAL VACC, 3 YRS & >, IM CPT-4: Q2036 02/23/2011 Vital Signs Date Vital 04/05/2018 Blood Pressure 1: 144/80 Code : 8480-6 BMI: 30.9 Code : 51688-3 Heart Rate 1 : 118 bpm Height: 5'9" SpO2: 98% Weight: 209 lbs 03/10/2018 Blood Pressure 1: 128/82 Code : 8480-6 Blood Pressure 1: 162/74 Code: 8480-6 BMI: 30.3 Code: 09928-0 Heart Rate 1: 101 bpm Height: 5'9" SpO2: 98% Weight: 205 lbs 01/13/2018 Blood Pressure 1: 102/78 Code : 8480-6 BMI: 31.6 Code : 83219-1 Heart Rate 1 : 103 bpm Height: 5'9" SpO2: 98% Weight: 214 lbs 11/25/2017 Blood Pressure 1: 114/80 Code : 8480-6 BMI: 30.3 Code : 26087-5 Heart Rate 1 : 112 bpm Height: 5'9" SpO2: 98% Weight: 205 lbs 10/19/2017 Blood Pressure 1: 110/70 Code : 8480-6 BMI: 30.7 Code : 16310-5 Heart Rate 1 : 102 bpm Height: 5'9" SpO2: 97% Weight: 208 lbs 09/17/2017 Blood Pressure 1: 132/78 Code : 8480-6 BMI: 30.4 Code : 25500-5 Heart Rate 1 : 117 bpm Height: 5'9" SpO2: 97% Weight: 206 lbs 09/06/2017 Blood Pressure 1: 110/78 Code : 8480-6 BMI: 29.8 Code : 33006-7 Heart Rate 1 : 106 bpm Height: 5'9" SpO2: 97% Weight: 202 lbs 08/19/2017 Blood Pressure 1: 136/72 Code : 8480-6 BMI: 30.4 Code : 72875-2 Heart Rate 1 : 108 bpm Height: 5'9" SpO2: 94% Weight: 206 lbs 07/06/2017 Blood Pressure 1: 154/80 Code : 8480-6 Heart Rate 1: 111 bpm Height: 5'9" Respiratory Rate: 20 bpm SpO2: 98% Weight: 04/27/2017 Blood Pressure 1: 138/78 Code : 8480-6 BMI: 30.4 Code : 97910-7 Heart Rate 1 : 96 bpm Height: 5'9" SpO2: 97% Weight: 206 lbs 04/06/2017 Blood Pressure 1: 108/80 Code : 8480-6 BMI: 31.0 Code : 12566-6 Heart Rate 1 : 96 bpm Height: 5'9" SpO2: 98% Weight: 210 lbs 02/25/2017 Blood Pressure 1: 132/80 Code : 8480-6 BMI: 32.5 Code : 69745-2 Heart Rate 1 : 112 bpm Height: 5'9" SpO2: 94% Weight: 220 lbs 01/19/2017 Blood Pressure 1: 122/68 Code : 8480-6 Heart Rate 1: 100 bpm Height: 5'9" SpO2: 95% Weight: 11/17/2016 Blood Pressure 1: 132/74 Code : 8480-6 BMI: 32.2 Code : 93324-3 Heart Rate 1 : 98 bpm Height: 5'9" SpO2: 94% Weight: 218 lbs 10/12/2016 Blood Pressure 1: 130/82 Code : 8480-6 BMI: 32.2 Code : 66715-8 Heart Rate 1 : 97 bpm Height: 5'9" SpO2: 94% Weight: 218 lbs 08/18/2016 Blood Pressure 1: 132/78 Code : 8480-6 BMI: 32.0 Code : 61980-6 Heart Rate 1 : 113 bpm Height: 5'9" SpO2: 98% Weight: 217 lbs 08/07/2016 Blood Pressure 1: 126/70 Code : 8480-6 BMI: 33.1 Code : 73025-5 Heart Rate 1 : 102 bpm Height: 5'9" SpO2: 94% Weight: 224 lbs 07/31/2016 Blood Pressure 1: 134/66 Code : 8480-6 BMI: 31.7 Code : 43300-2 Heart Rate 1 : 97 bpm Height: 5'9" SpO2: 95% Temperature: 36.4 (C) / 97.6 (F) Weight: 215 lbs 07/15/2016 Blood Pressure 1: 126/62 Code : 8480-6 Heart Rate 1: 105 bpm Height: 5'9" Weight: 07/07/2016 Blood Pressure 1: 106/54 Code : 8480-6 BMI: 31.7 Code : 52761-6 Heart Rate 1 : 93 bpm Height: 5'9" SpO2: 97% Weight: 215 lbs 06/25/2016 Heart Rate 1: 99 bpm Height: 5'9" SpO2: 95% Weight: 05/07/2016 Blood Pressure 1: 124/86 Code : 8480-6 BMI: 28.5 Code : 31116-5 Heart Rate 1 : 100 bpm Height: 5'9" SpO2: 96% Weight: 193 lbs 04/20/2016 Blood Pressure 1: 120/80 Code : 8480-6 BMI: 28.5 Code : 68539-9 Heart Rate 1 : 86 bpm Height: 5'9" SpO2: 96% Weight: 193 lbs 03/17/2016 Blood Pressure 1: 120/70 Code : 8480-6 BMI: 29.1 Code : 09364-4 Heart Rate 1 : 103 bpm Height: 5'9" SpO2: 96% Weight: 197 lbs 03/05/2016 Blood Pressure 1: 124/78 Code : 8480-6 Heart Rate 1: 82 bpm Height: 5'9" SpO2: 94% Weight: 02/28/2016 Blood Pressure 1: 94/50 Code : 8480-6 Heart Rate 1: 91 bpm Height: 5'9" SpO2: 94% Weight: 02/13/2016 Blood Pressure 1: 128/86 Code : 8480-6 BMI: 28.6 Code : 99880-3 Heart Rate 1 : 100 bpm Height: 5'9" SpO2: 96% Weight: 194 lbs 08/15/2015 Blood Pressure 1: 128/68 Code : 8480-6 BMI: 27.3 Code : 55643-4 Heart Rate 1 : 72 bpm Height: 5'9" SpO2: 92% Weight: 185 lbs 07/25/2015 Blood Pressure 1: 122/76 Code : 8480-6 BMI: 27.5 Code : 62197-6 Heart Rate 1 : 70 bpm Height: 5'9" SpO2: 94% Weight: 186 lbs 06/25/2015 Blood Pressure 1: 118/54 Code : 8480-6 BMI: 26.7 Code : 67832-2 Heart Rate 1 : 98 bpm Height: 5'9" SpO2: 97% Weight: 181 lbs 06/10/2015 Blood Pressure 1: 110/68 Code : 8480-6 Heart Rate 1: 80 bpm Height: SpO2: 98% Weight: 05/08/2015 Blood Pressure 1: 120/68 Code : 8480-6 BMI: 27.5 Code : 69184-1 Heart Rate 1 : 95 bpm Height: 5'9" SpO2: 96% Weight: 186 lbs 03/26/2015 Blood Pressure 1: 120/80 Code : 8480-6 Heart Rate 1: 102 bpm Respiratory Rate: 18 bpm SpO2: 92% Weight: 186 lbs 03/15/2015 Blood Pressure 1: 122/64 Code : 8480-6 BMI: 26.6 Code : 58928-9 Heart Rate 1 : 96 bpm Height: 5'9" SpO2: 96% Weight: 180 lbs 01/10/2015 Blood Pressure 1: 120/68 Code : 8480-6 BMI: 27.5 Code : 99247-3 Heart Rate 1 : 90 bpm Height: 5'9" Weight: 186 lbs 12/21/2014 Blood Pressure 1: 118/78 Code : 8480-6 BMI: 27.2 Code : 16772-2 Heart Rate 1 : 61 bpm Height: 5'9" SpO2: 97% Weight: 184 lbs 10/05/2014 Blood Pressure 1: 118/64 Code : 8480-6 BMI: 27.0 Code : 18426-7 Heart Rate 1 : 76 bpm Height: 5'9" Weight: 183 lbs 06/14/2014 Blood Pressure 1: 120/78 Code : 8480-6 BMI: 26.6 Code : 40004-0 Heart Rate 1 : 96 bpm Height: 5'9" Weight: 180 lbs 01/19/2014 Blood Pressure 1: 128/76 Code : 8480-6 BMI: 27.3 Code : 09929-6 Heart Rate 1 : 82 bpm Height: 5'9" Weight: 185 lbs 01/15/2014 Blood Pressure 1: 110/62 Code : 8480-6 BMI: 27.9 Code : 81883-2 Heart Rate 1 : 80 bpm Height: 5'9" Weight: 189 lbs 10/20/2013 Blood Pressure 1: 112 Code : 8480-6 BMI: 30.1 Code : 48745-6 Heart Rate 1 : 76 bpm Height: [...] Code : 8480-6 BMI: 30.6 Code : 44675-4 Heart Rate 1 : 92 bpm Height: 5'9" Weight: 207 lbs 05/23/2013 Blood Pressure 1: 120/78 Code : 8480-6 Heart Rate 1: 84 bpm Weight: 05/19/2013 Blood Pressure 1: 126/78 Code : 8480-6 BMI: 30.3 Code : 88471-8 Heart Rate 1 : 88 bpm Height: 5'9" Weight: 205 lbs 05/16/2013 Blood Pressure 1: 126/66 Code : 8480-6 BMI: 30.3 Code : 24178-9 Heart Rate 1 : 84 bpm Height: 5'9" Weight: 205 lbs 03/06/2013 Blood Pressure 1: 128/76 Code : 8480-6 BMI: 30.6 Code : 64024-8 Heart Rate 1 : 88 bpm Height: 5'9" Weight: 207 lbs 12/26/2012 Blood Pressure 1: 142/70 Code : 8480-6 BMI: 29.6 Code : 63621-8 Heart Rate 1 : 100 bpm Height: 5'9" Weight: 200 lbs 8 oz 11/21/2012 Blood Pressure 1: 132/80 Code : 8480-6 BMI: 29.5 Code : 49599-2 Heart Rate 1 : 96 bpm Height: [...] Code : 8480-6 BMI: 29.2 Code : 85023-9 Heart Rate 1 : 64 bpm Height: 5'9" Respiratory Rate: 16 bpm Weight: 198 lbs 03/11/2011 Blood Pressure 1: 106/60 Code : 8480-6 BMI: 28.8 Code : 19297-9 Heart Rate 1 : 100 bpm Height: 5'9" SpO2: 97% Weight: 195 lbs 02/12/2011 Weight: 192 lbs 01/29/2011 Blood Pressure 1: 100/64 Code : 8480-6 BMI: 28.1 Code : 55311-0 Heart Rate 1 : 100 bpm Height: [...] Hospital Follow Up _ pain 05/16/2013 left ujbp-[id number] to left knee-applying neosporin and covering with [...] pt to have a study done at [facility] [id number] shortness of breath Triggers exertion 03/11/2011 None [...] 02/12/2011 and pt went to her chiropractor/ web interface developer this week and was" worked on" and she has been feeling better shortness of breath Alleviating Factors rest 02/12/2011 pt states that her shortness of breath got better after her web interface developer adjusted her pelvis gastroesophageal reflux Quality heartburn [...] Encounters Encounter Performer Location Codes Date ( 53458 EST. PATIENT, LEVEL IV Diagnosis: Essential (primary) hypertension[ICD10: I10] Diagnosis: Chronic pain syndrome[ICD10: G89.4] Diagnosis: Vitamin B12 deficiency anemia due to intrinsic factor deficiency[ ICD10: D51.0] Aicha Thompson MD, [facility] CPT-4: 33377 04/05/2018 ([id number]) 11937 EST. PATIENT, LEVEL IV Diagnosis: Essential (primary) hypertension[ICD10: I10] Diagnosis: Generalized anxiety disorder[ICD10: F41.1] Diagnosis: Major depressive disorder, recurrent, mild[ICD10: F33.0] Diagnosis: Vitamin B12 deficiency anemia due to intrinsic factor deficiency[ ICD10: D51.0] Valentina Thompson MD, [facility] CPT-4: 51345 03/10/2018 [id number]) 51982 EST. PATIENT, LEVEL IV Diagnosis: Headache[ICD10: R51] Diagnosis: Obstructive sleep apnea (adult) (pediatric)[ICD10: G47.33] Diagnosis: Cervicalgia[ICD10: M54.2] Valentina Thompson MD, [facility] CPT-4: 60963 01/13/2018 ([id number]) 65035 EST. PATIENT, LEVEL IV Diagnosis: Headache[ICD10: R51] Diagnosis: Spinal stenosis, cervical region[ICD10: M48.02] Diagnosis: Major depressive disorder, recurrent, mild[ICD10: F33.0] Valentina Thompson MD , [facility] CPT-4: 98107 11/25/2017 ([id number]) 84848 EST. PATIENT, LEVEL III Diagnosis: Allergic contact dermatitis due to plants, except food[ICD10: L23.7] Diagnosis: Vitamin B12 deficiency anemia due to intrinsic factor deficiency[ ICD10: D51.0] Valentina Thompson MD, [facility] CPT-4: 71397 10/19/2017 ([id number]) 01591 EST. PATIENT, LEVEL IV Diagnosis: Generalized abdominal pain[ICD10: R10.84] Diagnosis: Urinary tract infection, site not specified[ICD10: N39.0] Diagnosis: Hypokalemia[ICD10: E87.6] Valentina Thompson MD, [facility] CPT-4: 53357 09/17/2017 ([id number]) 61221 EST. PATIENT, LEVEL IV Diagnosis: Chronic pain syndrome[ICD10: G89.4] Diagnosis: Pain in left knee[ICD10: M25.562] Diagnosis: Pain in right knee[ICD10: M25.561] Diagnosis: Essential (primary) hypertension[ICD10: I10] Aicha Thompson MD, [facility] CPT-4: 45652 09/06/2017 ([id number]) 86467 EST. PATIENT, LEVEL IV Diagnosis: Headache[ICD10: R51] Diagnosis: Chronic pain syndrome[ICD10: G89.4] Diagnosis: Mixed hyperlipidemia[ICD10: E78.2] Diagnosis: Vitamin D deficiency, unspecified[ICD10: E55.9] Diagnosis: Vitamin B12 deficiency anemia, unspecified[ICD10: D51.9] Valentina Thompson MD , [facility] CPT-4: 14048 08/19/2017 43853 EST. PATIENT, LEVEL V Diagnosis: Essential (primary) hypertension[ICD10: I10] Diagnosis: Vitamin B12 deficiency anemia due to intrinsic factor deficiency[ ICD10: D51.0] Diagnosis: Chronic pain syndrome[ICD10: G89.4] Aicha Thompson MD, [facility] CPT-4: 59614 07/06/2017 ([id number]) 73110 EST. PATIENT, LEVEL IV Diagnosis: Cervicalgia[ICD10: M54.2] Diagnosis: Laceration without foreign body of scalp, initial encounter[ICD10: S01.01XA] Diagnosis: Vitamin B12 deficiency anemia due to intrinsic factor deficiency[ ICD10: D51.0] Valentina Thompson MD, [facility] CPT-4: 96524 04/27/2017 49814 EST. PATIENT, LEVEL II Diagnosis: Residual hemorrhoidal skin tags[ICD10: K64.4] Valentina Thompson MD, [facility] CPT-4: 49047 04/06/2017 ([id number]) 59621 EST. PATIENT, LEVEL III Diagnosis: Pain in right foot[ICD10: M79.671] Diagnosis: Pain in left foot[ICD10: M79.672] Diagnosis: Cervicalgia[ICD10: M54.2] Valentina Thompson MD, [facility] CPT-4: 89244 02/25/2017 ([id number]) 45147 EST. PATIENT, LEVEL IV Diagnosis: Essential (primary) hypertension[ICD10: I10] Diagnosis: Chronic pain syndrome[ICD10: G89.4] Diagnosis: Spinal stenosis, cervical region[ICD10: M48.02] Diagnosis: Pain in right leg[ICD10: M79.604] Valentina Thompson MD, [facility] CPT-4: 43928 01/19/2017 ([id number]) 35255 EST. PATIENT, LEVEL III Diagnosis: Pain in right foot[ICD10: M79.671] Diagnosis: Pain in left foot[ICD10: M79.672] Diagnosis: Chronic pain syndrome[ICD10: G89.4] Diagnosis: Vitamin B12 deficiency anemia, unspecified[ICD10: D51.9] Valentina Thompson MD , [facility] CPT-4: 16543 11/17/2016 ([id number]) 97086 EST. PATIENT, LEVEL IV Diagnosis: Essential (primary) hypertension[ICD10: I10] Diagnosis: Chronic pain syndrome[ICD10: G89.4] Diagnosis: Foot drop, right foot[ICD10: M21.371] Diagnosis: Foot drop, left foot[ICD10: M21.372] Diagnosis: Other abnormalities of gait and mobility[ICD10: R26.89] Diagnosis: Vitamin B12 deficiency anemia due to intrinsic factor deficiency[ ICD10: D51.0] Aicha Thompson MD, [facility] CPT-4: 87102 10/12/2016 ([id number]) 23082 EST. PATIENT, LEVEL III Diagnosis: Pain in right ankle and joints of right foot[ICD10: M25.571] Diagnosis: Superficial foreign body, right foot, initial encounter[ICD10: S90.851A] Valentina Thompson MD, [facility] CPT-4: 26388 ([id number]) 64109 EST. PATIENT, LEVEL III Diagnosis: Candidiasis of vulva and vagina[ICD10: B37.3] Diagnosis: Vitamin B12 deficiency anemia, unspecified[ICD10: D51.9] Valentina Thompson MD , [facility] CPT-4: 40749 08/07/2016 ([id number]) 51470 EST. PATIENT, LEVEL III Diagnosis: Spinal stenosis, cervical region[ICD10: M48.02] Diagnosis: Pain in right ankle and joints of right foot[ICD10: M25.571] Diagnosis: Pain in left ankle and joints of left foot[ICD10: M25.572] Valentina Thompson MD, [facility] CPT-4: 80458 07/31/2016 24979 EST. PATIENT, LEVEL III Diagnosis: Cervicalgia[ICD10: M54.2] Diagnosis: Chronic pain syndrome[ICD10: G89.4] Beartiz Thompson MD, [facility] CPT-4: 48533 07/15/2016 ([id number]) 87216 EST. PATIENT, LEVEL III Diagnosis: Spinal stenosis, cervical region[ICD10: M48.02] Diagnosis: Low back pain[ICD10: M54.5] Valentina Thompson MD, [facility] CPT-4: 17002 07/07/2016 ([id number]) 87688 EST. PATIENT, LEVEL IV Diagnosis: Cervicalgia[ICD10: M54.2] Diagnosis: Essential (primary) hypertension[ICD10: I10] Diagnosis: Mixed hyperlipidemia[ICD10: E78.2] Aicha Thompson MD, [facility] CPT-4: 32662 06/25/2016 ([id number]) 32245 EST. PATIENT, LEVEL III Diagnosis: Cervicalgia[ICD10: M54.2] Valentina Thompson MD, [facility] CPT-4: 62212 05/07/2016 ([id number]) 62644 EST. PATIENT, LEVEL III Diagnosis: Pleurodynia[ICD10: R07.81] Diagnosis: Generalized anxiety disorder[ICD10: F41.1] Diagnosis: Vitamin B12 deficiency anemia due to intrinsic factor deficiency[ ICD10: D51.0] Diagnosis: Hypoxemia[ICD10: R09.02] Valentina Thompson MD, [facility] CPT-4: 94361 04/20/2016 ([id number]) 43010 EST. PATIENT, LEVEL III Diagnosis: Generalized anxiety disorder[ICD10: F41.1] Diagnosis: Radiculopathy, lumbar region[ICD10: M54.16] Valentina Thompson MD, [facility] CPT-4: 99604 03/17/2016 79676 EST. PATIENT, LEVEL IV Diagnosis: Chronic pain syndrome[ICD10: G89.4] Diagnosis: Radiculopathy, lumbar region[ICD10: M54.16] Diagnosis: Generalized anxiety disorder[ICD10: F41.1] Beatriz Thompson MD, [facility] CPT-4: 71830 03/05/2016 ([id number]) 10236 EST. PATIENT, LEVEL III Diagnosis: Radiculopathy, lumbar region[ICD10: M54.16] Diagnosis: Generalized anxiety disorder[ICD10: F41.1] Valentina Thompson MD, [facility] CPT-4: 13801 02/28/2016 ([id number]) 85991 EST. 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 PATIENT, LEVEL III Diagnosis: Headache[ICD10: R51] Diagnosis: Cervicalgia[ICD10: M54.2] Valentina Thompson MD, [facility] CPT-4: 65979 08/15/2015 ([id number]) 66327 EST. PATIENT, LEVEL III Diagnosis: Generalized anxiety disorder[ICD10: F41.1] Diagnosis: Cervicalgia[ICD10: M54.2] Valentina Thompson MD, [facility] CPT-4: 76833 07/25/2015 ([id number]) 86991 EST. PATIENT, LEVEL IV Diagnosis: Pain in right foot[ICD10: M79.671] Diagnosis: Unspecified osteoarthritis, unspecified site[ICD10: M19.90] Diagnosis: Pain in left ankle and joints of left foot[ICD10: M25.572] Diagnosis: Pain in right ankle and joints of right foot[ICD10: M25.571] Valentina Thompson MD, [facility] CPT-4: 43692 06/25/2015 ([id number]) 04193 EST. 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 PATIENT, LEVEL IV Diagnosis: Essential (primary) hypertension[ICD10: I10] Diagnosis: Pain in right foot[ICD10: M79.671] Diagnosis: Pain in left foot[ICD10: M79.672] Diagnosis: Anxiety disorder, unspecified[ICD10: F41.9] Aicha Thompson MD, [facility] CPT-4: 57997 05/08/2015 ([id number]) 87331 EST. PATIENT, LEVEL III Diagnosis: Generalized anxiety disorder[ICD10: F41.1] Diagnosis: Essential (primary) hypertension[ICD10: I10] Diagnosis: Other myositis, multiple sites[ICD10: M60.89] Valentina Thompson MD, [facility] CPT-4: 14395 03/26/2015 05377 EST. PATIENT, LEVEL III Diagnosis: Chronic pain syndrome[ICD10: G89.4] Diagnosis: Unspecified osteoarthritis, unspecified site[ICD10: M19.90] Diagnosis: Pain in right foot[ICD10: M79.671] Diagnosis: Pain in left foot[ICD10: M79.672] Beatriz Thompson MD, [facility] CPT -4: 61773 03/15/2015 ([id number]) 01433 EST. PATIENT, LEVEL III Diagnosis: Abrasion of knee, left[ICD9: 916.0] Valentina Thompson MD, [facility] CPT-4: 84278 01/10/2015 ([id number]) 72440 EST. PATIENT, LEVEL IV Diagnosis: CHRONIC PAIN SYNDROME[ICD9: 338.4] Diagnosis: MYALGIA AND MYOSITIS[ICD9: 729.1] Diagnosis: OSTEOARTH NOS-UNSPEC[ICD9: 715.90] Diagnosis: DEPRESSIVE DISORDER NEC[ICD9: 311] Diagnosis: GENERALIZED ANXIETY DISEASE[ICD9: 300.02] Valentina Thompson MD, [facility] CPT-4: 41768 12/21/2014 ([id number]) 02962 EST. PATIENT, LEVEL IV Diagnosis: GENERALIZED ANXIETY DISEASE[ICD9: 300.02] Diagnosis: DEPRESSIVE DISORDER NEC[ICD9: 311] Diagnosis: ESSENTIAL HYPERTENSION[ICD9: 401.9] Valentina Thompson MD, [facility] CPT-4: 36197 10/05/2014 ([id number]) 52051 EST. PATIENT, LEVEL III Diagnosis: Knee pain, right[ICD9: 719.46] Diagnosis: CHRONIC PAIN SYNDROME[ICD9: 338.4] Diagnosis: Ankle pain[ICD9: 719.47] Aicha Thompson MD, [facility] CPT-4: 21517 06/14/2014 ([id number]) 64616 EST. PATIENT, LEVEL III Diagnosis: Constipation[ICD9: 564.00] Diagnosis: Hemorrhoids[ICD9: 455.6] Valentina Thompson MD, [facility] CPT-4: 46778 01/19/2014 ([id number]) 38214 EST. PATIENT, LEVEL III Diagnosis: Ulcer of knee[ICD9: 707.19] Diagnosis: Hemorrhoids[ICD9: 455.6] Diagnosis: B12 deficiency[ICD9: 266.2] Diagnosis: ALLERGIC RHINITIS[ICD9: 477.9] Valentina Thompson MD, [facility] CPT-4: 75990 01/15/2014 ([id number]) 44346 EST. PATIENT, LEVEL IV Diagnosis: EDEMA[ICD9: 782.3] Diagnosis: Open wound of knee[ICD9: 891.0] Diagnosis: CHRONIC PAIN SYNDROME[ICD9: 338.4] Diagnosis: ANEMIA[ICD9: 285.9] Valentina Thompson MD, [facility] CPT-4: 96582 10/20/2013 ([id number]) 98715 EST. PATIENT, LEVEL III Diagnosis: ULCER OTH PART LOW LIMB[ICD9: 707.19] Valentina Thompson MD, [facility] CPT-4: 10991 07/24/2013 ([id number]) 16353 EST. PATIENT, LEVEL III Diagnosis: ULCER OTH PART LOW LIMB[ICD9: 707.19] Valentina Thompson MD, [facility] CPT-4: 86584 06/23/2013 ([id number]) 89264 EST. PATIENT, LEVEL III Diagnosis: ULCER OTH PART LOW LIMB[ICD9: 707.19] Valentina Thompson MD, [facility] CPT-4: 05927 06/12/2013 ([id number]) Miscellaneous no charge Diagnosis: ULCER OTH PART LOW LIMB[ICD9: 707.19] Valentina Thompson MD, [facility] CPT-4: 83847 05/29/2013 ([id number]) 98200 EST. PATIENT, LEVEL III Diagnosis: ULCER OTH PART LOW LIMB[ICD9: 707.19] Valentina Thompson MD, [facility] CPT-4: 06881 05/23/2013 ([id number]) Miscellaneous no charge Diagnosis: ULCER OTH PART LOW LIMB[ICD9: 707.19] Valentina Thompson MD [facility] CPT-4: 64313 05/19/2013 ([id number]) 50074 EST. PATIENT, LEVEL III Diagnosis: Ulcer of knee[ICD9: 707.19] Valentina Thompson MD [facility] CPT-4: 06803 05/16/2013 ([id number]) 85386 EST. PATIENT, LEVEL III Diagnosis: ALLERGIC RHINITIS[ICD9: 477.9] Aicha Thompson MD [facility] CPT- 4: 50567 03/06/2013 ([id number]) 36351 EST. PATIENT, LEVEL IV Diagnosis: Ankle pain[ICD9: 719.47] Diagnosis: ALLERGIC RHINITIS[ICD9: 477.9] Diagnosis: ESSENTIAL HYPERTENSION[SNOMED: 68460258] Aicha Thompson MD [facility] CPT-4: 59665 12/26/2012 ([id number]) 23260 EST. PATIENT, LEVEL IV Diagnosis: ESSENTIAL HYPERTENSION[SNOMED: 09878507] Diagnosis: JOINT PAIN-L/LEG[ICD9: 719.46] Diagnosis: GENERALIZED ANXIETY DISEASE[ICD9: 300.02] Diagnosis: UNSPECIFIED ASTHMA[ICD9: 493.90] Aicha Thompson MD [facility] CPT-4: 66732 11/21/2012 ([id number]) Miscellaneous no charge Diagnosis: Encounter for tuberculin skin test[ICD9: V74.1] Aicha Thompson MD [facility] CPT-4: 98111 09/28/2012 ([id number]) 72092 EST. PATIENT, LEVEL IV Diagnosis: FEVER NOS[ICD9: 780.60] Diagnosis: PNEUMONIA (CAP)[ICD9: 486] Aicha Thompson MD [facility] CPT- 4: 30078 07/21/2012 ([id number]) 20350 EST. PATIENT, LEVEL IV Diagnosis: JOINT PAIN-ANKLE[ICD9: 719.47] Diagnosis: MUSCLE/LIGAMENT DIS NEC[ICD9: 728.89] Diagnosis: Fibromyalgia muscle pain[ICD9: 729.1] Aicha Thompson MD [facility] CPT-4: 59992 07/13/2012 ([id number]) 05265 EST. PATIENT, LEVEL IV Diagnosis: Right foot pain[ICD9: 729.5] Diagnosis: Plantar fasciitis[ICD9: 728.71] Diagnosis: GENERALIZED ANXIETY DISEASE[ICD9: 300.02] Diagnosis: B-COMPLEX DEFIC NEC[ICD9: 266.2] Aicha Thompson MD, [facility] CPT-4: 56653 05/26/2012 ([id number]) 13234 EST. PATIENT, LEVEL IV Diagnosis: Chest wall pain[ICD9: 786.52] Diagnosis: Esophageal reflux[ICD9: 530.81] Diagnosis: ALLERGIC RHINITIS[ICD9: 477.9] Valentina Thompson MD, [facility] CPT-4: 04591 02/15/2012 ([id number]) 14167 EST. PATIENT, LEVEL IV Diagnosis: ALLERGIC RHINITIS[ICD9: 477.9] Diagnosis: HYPERLIPIDEMIA[ICD9: 272.4] Aicha Thompson MD, [facility] CPT- 4: 59250 01/13/2012 ([id number]) 34069 EST. PATIENT, LEVEL IV Diagnosis: JOINT PAIN-L/LEG[ICD9: 719.46] Diagnosis: UNSPECIFIED ASTHMA[ICD9: 493.90] Diagnosis: Costalchondritis[ICD9: 733.6] Aicha Thompson MD, [facility] CPT- 4: 96223 12/21/2011 ([id number]) 06324 EST. PATIENT, LEVEL IV Diagnosis: Hyperlipidemia[ICD9: 272.4] Diagnosis: ALLERGIC RHINITIS[ICD9: 477.9] Diagnosis: B12 deficiency[ICD9: 266.2] Diagnosis: Hypopotassemia[ICD9: 276.8] Valentina Thompson MD, [facility] CPT-4: 52223 10/02/2011 ([id number]) 43651 EST. PATIENT, LEVEL IV Diagnosis: Pain in joint involving forearm[ICD9: 719.43] Diagnosis: Neck pain[ICD9: 723.1] Diagnosis: Fall on same level from slipping, tripping, or stumbling[ICD9: E885.9 ] Diagnosis: B12 deficiency[ICD9: 266.2] Aicha Thompson MD, [facility] CPT- 4: 10532 09/01/2011 ([id number]) 96067 EST. PATIENT, LEVEL IV Diagnosis: Vulvovaginitis[ICD9: 616.10] Diagnosis: OVERWEIGHT[ICD9: 278.02] Diagnosis: MYALGIA AND MYOSITIS[ICD9: 729.1] Aicha Thompson MD, [facility] CPT-4: 34999 08/03/2011 ([id number]) 30838 EST. PATIENT, LEVEL IV Diagnosis: MUSCLE/LIGAMENT DIS NEC[ICD9: 728.89] Diagnosis: CHRONIC PAIN SYNDROME[ICD9: 338.4] Diagnosis: Weight gain[ICD9: 783.1] Aicha Thompson MD, [facility] CPT-4: 39944 06/29/2011 93619 EST. PATIENT, LEVEL IV Diagnosis: Wrist pain[ICD9: 719.43] Diagnosis: Knee pain, right[ICD9: 719.46] Diagnosis: Fall on same level from slipping, tripping, or stumbling[ICD9: E885.9 ] Aicha Thompson MD, [facility] CPT-4: 79234 06/22/2011 17019 EST. PATIENT, LEVEL IV Diagnosis: MUSCLE/LIGAMENT DIS NEC[ICD9: 728.89] Diagnosis: JOINT PAIN-L/LEG[ICD9: 719.46] Diagnosis: OSTEOARTH NOS-UNSPEC[ICD9: 715.90] Diagnosis: B12 deficiency[ICD9: 266.2] Aicha Thompson MD, [facility] CPT- 4: 82549 06/11/2011 95034 EST. 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 PATIENT, LEVEL IV Diagnosis: Knee pain, bilateral[ICD9: 719.46] Diagnosis: Iliotibial band syndrome[ICD9: 728.89] Diagnosis: Fibromyalgia syndrome[ICD9: 729.1] [facility] CPT-4: 28766 02/12/2011 41804 EST. PATIENT, LEVEL IV Diagnosis: FALL FROM SLIPPING[ICD9: E885.9] Diagnosis: Pain in joint involving lower leg[ICD9: 719.46] Diagnosis: ESOPHAGEAL REFLUX[ICD9: 530.81] Diagnosis: ESSENTIAL HYPERTENSION[SNOMED: 53265331] Aicha Thompson MD, [facility] CPT-4: 47900 01/29/2011 Plan of Care Planned Activity Notes [...] hydrocodone. 04/05/2018 [id number] ([facility] Complex 04/05/2018 Patient Education: Patient Medication Summary Completed 04/05/2018 App[id number] (15 min) Moderate 03/17/2018 Visit Plan: Hypertension [...] weeks 03/10/2018 Appointment: Valentina Smith WPtel: [phone] [phone] (15 min) Moderate 03/10/2018 Appointment: Aicha Thompson WPtel: [phone] [facility]66[facility] (15 min) Moderate 03/10/2018 Patient Education: Patient [...] scheduled 01/13/2018 Appointment: Valentina Smith WPtel: [phone] [phone] (15 min) Moderate 01/13/2018 Patient Education: [...] medications. 11/25/2017 Appointment: Valentina Smith WPtel: [phone] [phone] (30 min) Complex 11/25/2017 Patient Education: Patient Medication Summary Completed 11/25/2017 Visit Plan: Contact dermatitis-discussed natural and expected course of this diagnosis and to alert me if symptoms do not resolve or if any worse. RX sent to patient's pharmacy and instructed on use. 10/19/2017 Appointment: Valentina Smith WPtel: [facility] [phone] [place] (15 min) Moderate 10/19/2017 Patient Education: Patient Medication Summary Completed 10/19/2017 Appointment: Valentina Smith WPtel: 1015 [phone] [place] (30 min) Complex 09/27/2017 Visit Plan: Generalized abd wryk-MXP-pukwka cipro/flagyl- culture urine-recommend patient follow up with Dr Grace for an appt if abdominal pain does not improve Low potassium-check labs 09/17/2017 Visit Plan: Generalized abd menk-YNE-fbatam cipro/flagyl- culture urine-recommend patient follow up with Dr Grace for an appt if abdominal pain does not improve Low potassium-check labs 09/17/2017 Appointment: Valentina Smith WPtel: [phone] [place] (30 min) Complex 09/17/2017 Patient [...] of over-medication. 09/06/2017 Appointment: Aicha Thompson WPtel: [address] [place], [place] [address] [place] (30 min) Complex 09/06/2017 Patient Education: Patient Medication Summary Completed 09/06/2017 Appointment: Aicha Thompson WPtel: [address] [place], [place] [address] [place] (30 min) Complex 09/02/2017 Appointment: Aicha Thompson WPtel: [address] [place] [address] [place] (30 min) Complex 08/23/2017 Visit Plan: Headaches-neck pain-patient is to let us know which neurologist she wants to see B12 def-injection today in the office Hyperlipidemia-check labs Vitamin D def-check level 08/19/2017 Appointment: Valentina Smith WPtel: [address] [phone] (30 min) Complex 08/19/2017 Patient Education: [...] the list of the neurologists that her cad programmer has recommended and we would consider a [...] the list of the neurologists that her cad programmer has recommended and we would consider a [...] the psychiatrist. 07/06/2017 Appointment: Aicha Thompson WPtel: [facility] [place] (30 min) Complex 07/06/2017 Patient Education: Patient Medication Summary Completed 07/06/2017 Appointment: [facility]ich[facility] Thompson [facility]el: [facility] [facility] [place] (30 min) Complex 07/05/2017 Appointment: Valentina Smith [facility]Ptel: [address] [phone] [place] (30 min) Complex 05/17/2017 Appointment: Beatriz Mojica WPtel: [facility] (30 min) Complex 05/14/2017 Visit Plan: Neck glgr-snnkfuu-vtvbnyj to continue f/u with [facility]-her symptoms have [...] of plan. 04/27/2017 Appointment: Valentina Smith WPtel: [facility]5 [phone] (30 min) Complex 04/27/2017 Patient Education: Patient Medication Summary Completed 04/27/2017 Patient Education: Obesity Completed 04/27/2017 Visit Plan: Hemorrhoidal skin tag-no acute inflammation today -may use hemorrhoid cream as directed as needed-call with any concerns, bleeding, etc. 04/06/2017 Appointment: Valentina Smith WPtel: [phone] (30 min) Complex 04/06/2017 Patient Education: Patient Medication Summary Completed 04/06/2017 Patient Education: Obesity Completed 04/06/2017 Visit Plan: Bilateral foot and ankle pain-now has AFOs-we have made her several appt with podiatrists which she has not kept-recommend patient call Dr Saunders and reschedule appt with him. Neck pain-[facility] appt next week-KEEP APPOINTMENT! 02/25/2017 Appointment: Valentina Smith WPtel: [facility]5 [phone] (30 min) Complex 02/25/2017 Patient [...] podiatry for evaluation-wants to see someone in [place] 11/17/2016 Appointment: Valentina Smith WPtel: [address] [phone] (30 min) Complex 11/17/2016 Patient Education: Patient Medication Summary Completed 11/17/2016 Appointment: Valentina Smith WPtel: [address] [phone] (30 min) Complex 11/16/2016 Visit Plan: [facility] referral - pt to indicate when and who she would like to go to - for neck and back AFO for both legs - [facility] in [place], [place]- fax #[phone] pt has been seen by clinical documentation specialist - need brace because of bilateral [...] over- medication. 10/12/2016 Appointment: Aicha Thompson [facility]Ptel: [facility] [facility] (30 min) Complex 10/12/2016 Patient Education: Patient Medication Summary Completed 10/12/2016 Patient Education: Obesity Completed 10/12/2016 Appointment: Injection 09/11/2016 Patient Education: Patient Medication Summary Completed 09/11/2016 Visit Plan: Right ankle pain/instability-xray negative- will obtain MRI ankle Ulcer right foot-instructed patient on wound care and the importance of keeping wound clean-f/u in 10-14 days for re-evaluation 08/18/2016 Appointment: Valentina Smith WPtel: [facility]5 [phone] [place] (30 min) Complex 08/18/2016 Patient Education: Patient Medication Summary Completed 08/18/2016 Patient Education: Obesity Completed 08/18/2016 Care Plan: X-RAY EXAM NECK SPINE 2-3 VW LOINC : 94444-0 Pending 08/15/2016 Visit Plan: Vaginal yeast infection-RX for diflucan B12 deficiency-check labs 08/07/2016 Appointment: Valentina Smith WPtel: [address] [place], [place] [phone] [place] (30 min) Complex 08/07/2016 Patient Education: Patient Medication Summary Completed 08/07/2016 Visit Plan: Cervical stenosis-saw Dr Ramey-Dr Ramey is going to send her to for further evaluation Bilateral ankle pain-xray ankles 07/31/2016 Appointment: Valentina Smith WPtel: [address] [place], [place] [phone] [place] (30 min) Complex 07/31/2016 Patient Education: Patient Medication Summary Completed 07/31/2016 Patient Education: Obesity Completed 07/31/2016 Visit Plan: Neck pain after fall - Will check x-ray, Pt is to follow up with Dr. Perez. Pt is to notify clinic if symptoms do not improve , if they worsen, or with any questions or concerns. 07/15/2016 Appointment: Beatriz Mojica WPtel: [address] [place] [address] [place] (30 min) Complex 07/15/2016 Patient Education: [...] 07/03/2016 Appointment: Valentina Smith WPtel: [address]5 [phone] (30 min) Complex 07/03/2016 Patient Education: Patient [...] despite PT. 05/07/2016 Appointment: Valentina Smith WPtel: [facility]5 [phone] (30 min) Complex 05/07/2016 Patient Education: Patient Medication Summary Completed 05/07/2016 Patient Education: Obesity Completed 05/07/2016 Care Plan: MRI NECK SPINE W/O DYE LOINC : 27692-4 Pending 05/07/2016 Visit Plan: Chronic Depression and [...] monitor symptoms 04/20/2016 Appointment: Valentina Smith WPtel: [address] [place] [address] (30 min) Complex 04/20/2016 Patient Education: Patient Medication Summary Completed 04/20/2016 Appointment: Valentina Smith WPtel: [address] [place] [address] (30 min) Complex 03/19/2016 Visit Plan: Chronic [...] Dr Ibarra 03/17/2016 Appointment: Valentina Smith WPtel: [address] [place] [address] (30 min) Complex 03/17/2016 Patient Education: Patient [...] current medications. 02/28/2016 Appointment: Valentina Smith WPtel: [address] [place] [address] (15 min) Moderate 02/28/2016 Patient Education: Patient Medication Summary Completed 02/28/2016 Appointment: Valentina Smith WPtel: [address] [place] [address] (30 min) Complex 02/27/2016 Visit Plan: Hypertension [...] d level 02/13/2016 Appointment: Valentina Smith WPtel: [address] [place] [address] (30 min) Complex 02/13/2016 Patient Education: Patient Medication Summary Completed 02/13/2016 Patient Education: Obesity Completed 02/13/2016 Care Plan: Cbc With Differential Pending 02/13/2016 Care Plan: Tsh Pending 02/13/2016 Care Plan: Lipid Pending 02/13/2016 Care Plan: Comp Metabolic patient to come fasting Pending 02/13/2016 Care Plan: Vitamin D 25 Oh Cancelled 02/13/2016 Patient Education: Patient Medication Summary Completed 02/03/2016 Care Plan: SCREENINGMAMMOGRAPHYDIGITAL LOINC : 93620-1 Pending 02/03/2016 Appointment: Injection 01/15/2016 Appointment: Lab [...] EXAM NECK SPINE 2-3 VW LOINC : 64308-2 Ordered 08/15/2015 Visit Plan: Anxiety-fairly well controlled-does [...] and ankle instability/pain. Refer patient to [facility] for aqua therapy. Patient verbalized understanding [...] side effects. 05/08/2015 Appointment: Aicha Thompson WPtel: [address] [place] [address] (30 min) [facility] 05/08/2015 Patient Education: Patient Medication [...] Care Plan: COMPLETE CBC AUTOMATED LOINC : 66299-4 Ordered 10/05/2014 Visit Plan: Chronic Pain Syndrome - pt has chronic pain - has been maintained on current medications, has not sought out other medications , only uses PRN pain medications as directed, and understands the consequences of over-medication. Right hip/knee/ankle pain-improving since last fall- continue physical therapy exercises-continue supportive shoes and use walker for stability 06/14/2014 Appointment: Valentina Smith WPtel: [facility]6 [place] [phone] [place] Follow up 06/14/2014 Patient Education: Patient [...] the instructions given to her from her army helicopter pilot and she is to call him if her constipation is uncontrolled. Hemorrhoids-use suppositories as directed. 01/19/2014 Patient Education: Patient Medication Summary Completed 01/19/2014 Visit Plan: Ulcer of lltr-eirryzw-iszgi instructions provided today and instructed patient to return as directed-keep wound clean and dry. Hemorrhoids-refill anusol suppositories and use as directed B12 deficiency-b12 injection today in the office Yxadsnket-nhgurilemhey-tktsivd injection today in the office-continue oral medications [...] in 1 month Anemia-check labs 10/20/2013 Appointment: Vaelntina Smith WPtel: [facility]8 [place] [phone] Other 10/20/2013 Patient Education: Patient Medication Summary Completed 10/20/2013 Appointment: Valentina Smith WPtel: [facility]2 [phone] [place] Injection 08/21/2013 Appointment: Aicha Thompson WPtel: [address] [place], [place] [phone] Follow up 07/31/2013 Visit Plan: Ulcer of knee healing-silver nitrate to granulation tissue-instructed patient to monitor and call if it does not completely heal for appointment-instructed on wound care-patient and mother verbalized understanding of plan. 07/24/2013 Patient Education: Patient Medication Summary Completed 07/24/2013 Patient Education: Patient Medication Summary Completed 07/24/2013 Appointment: Valentina Simth WPtel: [address] [place], [place] [phone] Follow up 07/03/2013 Visit Plan: Ulcer-left knee-fibrous tissue removed from wound bed to reveal pink granulation tissue-wound cleansed and dressing applied. Instructed patient on wound care. Return in 10 days for follow up. 06/23/2013 Appointment: Valentina Smith WPtel: [address] [place], [place] [phone] Follow up 06/23/2013 Patient Education: Patient Medication Summary Completed 06/23/2013 Appointment: Valentina Smith WPtel: [address] [place], [place] [phone] Follow up 06/22/2013 Appointment: Aicha Thompson WPtel: [address] [place], [place] [phone] Follow up 06/22/2013 Visit Plan: Ulcer-left knee-fibrous tissue removed from wound bed to reveal pink granulation tissue-wound cleansed and dressing applied. Instructed patient on wound care. Return in 10 days for follow up. 06/12/2013 Appointment: Valentina Smith WPtel: [address] [place], [place] [phone] Follow up 06/12/2013 Patient Education: Patient Medication Summary Completed 06/12/2013 Appointment: Aicha Thompson WPtel: [address] [place], [place] [phone] [place] Follow up 06/08/2013 Visit Plan: Ulcer left vcis-epwlkxjk-l/u in 10 days 05/29/2013 Appointment: Valentina Smith WPtel: [address] [place], [place] [phone] Follow up 05/29/2013 Patient Education: Patient Medication Summary Completed 05/29/2013 Visit Plan: Ulcer of knee-sharp debridement today in the office--wound care instructions provided for patient-patient and mother verbalized understanding of plan. Follow up next week. 05/23/2013 Appointment: Valentina Smith WPtel: [address] [place], [place] [phone] Follow up 05/23/2013 Patient Education: Patient Medication Summary Completed 05/23/2013 Appointment: Valentina Smith WPtel: [address] [place], [place] [phone] Follow up 05/22/2013 Visit Plan: Ulcer of knee-wound care instructions provided for patient-patient and mother verbalized understanding of plan. 05/19/2013 Appointment: Valentina Smith WPtel: [address] [place], [place] [phone] [place] [address] 05/19/2013 Patient Education: Patient Medication Summary Completed 05/19/2013 Visit Plan: Ulcer of knee-fibrous tissue debrided today in the office--wound care instructions provided for patient-return in 1 week for follow up. 05/16/2013 Appointment: Valentina Smith WPtel: [address] [place], [place] [phone] [place] [address] follow up 05/16/2013 Patient Education: Patient Medication Summary Completed 05/16/2013 Appointment: Aicha Thompson WPtel: [address] [place], [place] [phone] [facility] 05/10/2013 Patient Education: Patient Medication [...] the office. 03/06/2013 Appointment: Luis Valentina WPtel: [phone] [phone] Other 03/06/2013 Patient Education: Patient Medication Summary Completed 03/06/2013 Appointment: Aicha Thompson WPtel: [facility]3 [facility] Nurse Visit 02/20/2013 Patient Education: Patient Medication Summary Completed 02/20/2013 Appointment: Aicha Thompson WPtel: 101 [facility] Follow up 01/16/2013 Visit Plan: Joint [...] call for acute concerns. 12/26/2012 Appointment: [facility]l: [facility] [place] Other 12/26/2012 Patient Education: Patient Medication Summary Completed 12/26/2012 Patient Education: Hypertension Completed 12/26/2012 Appointment: Aicha Thompson WPtel: [facility]5 [facility] [place] Lab Draw 12/21/2012 Patient Education: Patient [...] acute changes 11/21/2012 Appointment: Aicha Thompson WPtel: [facility] Follow up 11/21/2012 Patient Education: Patient Medication Summary Completed 11/21/2012 Patient Education: Hypertension Completed 11/21/2012 Appointment: Aicha Thompson WPtel: [address] [place] [address] [place] Injection 11/16/2012 Patient Education: Patient Medication Summary Completed 11/16/2012 Appointment: Aicha Thompson WPtel: [address] [place] [address] [place] Injection 09/28/2012 Patient Education: Patient Medication Summary Completed 09/28/2012 Appointment: Aicha Thompson WPtel: [facility] [place] Injection 09/26/2012 Patient Education: Patient Medication Summary Completed 09/26/2012 Appointment: Aicha Thompson WPtel: [address] [facility] [place] Injection 09/12/2012 Patient Education: Patient Medication Summary Completed 09/12/2012 Appointment: Aicha Thompson [facility]Ptel: [facility] [facility] [place] Injection 08/11/2012 Patient Education: Patient Medication [...] management sparingly. 07/13/2012 Appointment: Aicha Thompson WPtel: [facility] [facility] [place] Other 07/13/2012 Patient Education: Patient Medication [...] in medications 05/26/2012 Appointment: Valentina Smith WPtel: [address] [place] [address] Other 05/26/2012 Patient Education: Patient Medication Summary Completed 05/26/2012 Appointment: Valentina Smith WPtel: [address] [place] [address] Sick 03/15/2012 Appointment: Aicha Thompson WPtel: [facility]1 [address] Injection 03/02/2012 Patient Education: Patient Medication [...] the medication. 02/15/2012 Appointment: Valentina Smith WPtel: [address] [place] [address] Other 02/15/2012 Patient Education: Patient Medication Summary [...] to medications 01/13/2012 Appointment: Valentina Smith WPtel: [address] Other 01/13/2012 Patient Education: Patient Medication Summary Completed 01/13/2012 Appointment: Valentina Smith WPtel: [address] [place] [address] [place] Other 01/06/2012 Visit Plan: Asthma - chest xray and symbicort sample today. Patellofemoral syndrome- recommended physical therapy. Costochondritis - recommended pt to use antiinflammatories as able for treatment of rib/sternum irritation and for pt to call if her symptoms do not improve. 12/21/2011 Appointment: Aicha Thompson WPtel: [facility]4 [address] Other 12/21/2011 Patient Education: Patient Medication [...] the office. 10/02/2011 Appointment: Valentina Smith WPtel: [facility]6 [address] Other 10/02/2011 Patient Education: Patient Medication Summary Completed 10/02/2011 Visit Plan: Pain in joints-arms, elbows-recent fall- discussed natural and expected course of this diagnosis and to alert me if symptoms do not follow expected course, or if any worse. Patient verbalized understanding. Neck nlez-owdclwk-jigicowwl physical therapy-patient declined at this time-going to see the web interface developer this afternoon. B12 deficiency-B12 injection today in the office. 09/01/2011 Appointment: Luis Valentina [facility]Ptel: [facility] [facility] Other 09/01/2011 Patient Education: Patient Medication Summary [...] sparingly. 08/03/2011 Appointment: Aicha Thompson WPtel: [facility] Follow up 08/03/2011 Patient Education: Patient Medication [...] HER PAIN. 06/29/2011 Appointment: Aicha Thompson WPtel: [facility]3 [facility] Follow up 06/29/2011 Patient Education: Patient Medication Summary Completed 06/29/2011 Appointment: Aicha Thompson WPtel: [facility]2 [facility] Other 06/24/2011 Visit Plan: Right knee pain, bilateral wrist pain-recent fall-discussed natural and expected course of this diagnosis and to alert me if symptoms do not follow expected course, or if any worse. Patient verbalized understanding. Recommend follow up with Ortho physician if pain persists. 06/22/2011 Appointment: Valentina Smith WPtel: [facility]3 [phone] [place] Other 06/22/2011 Patient Education: Patient Medication Summary Completed 06/22/2011 Visit Plan: Knee and Ankle pain and instability- recommend re-evaluation by an asset protection specialist at [facility] the [address] [place] [address]. Pt has been recommended to go back to Dr. Corbin at [facility] the [address] [place] [phone] as my office did not get a [...] of fibromyalgia. 06/11/2011 Appointment: Aicha Thompson WPtel: [facility]7 [facility] [place] Injection 06/11/2011 Appointment: Aicha Thompson [facility]Ptel: [facility] Other 06/11/2011 Patient Education: Patient Medication Summary Completed 06/11/2011 Visit Plan: Knee and Ankle pain and instability- recommend evaluation by an asset protection specialist at [facility]. [...] appearance. 03/11/2011 Appointment: Aicha Thompson WPtel: 1015 [facility] Other 03/11/2011 Patient Education: Patient Medication Summary Completed 03/11/2011 Patient Education: .Amazing charts Diabetic meal planning guide Completed 03/11 Appointment: Aicha Thompson [facility]Ptel: [facility] [facility] [place] Injection 02/23/2011 Patient Education: Patient Medication Summary Completed 02/23/2011 Visit Plan: iliotibial band syndrome - continue with current treatment per web interface developer. I have recommend use of biofreeze to the right outer leg. I have given pt stretching exercises for home. Fibromyalgia - chronic - continue with exercise, heat, and prn pain medication. Knee pain - apparently resolved prior to her appointment today. No change in present management, call if pain returns. 02/12/2011 Appointment: Aicha Thompson WPtel: [facility] Other 02/12/2011 Patient Education: Patient Medication Summary [...] 10 days for follow up. . Chronic Depression and anxiety - the [...] her taper off of the hydrocodone. . [facility] referral - pt to indicate when and who she would like to go to - for neck and back AFO for both legs - [facility] in [place], [place]- fax # [phone] pt has been seen by clinical documentation specialist - need brace because of bilateral [...] for pain control and symptom management sparingly. sleep study -[facility] . Headaches-patient is not wearing her CPAP and i suspect this may be contributing to her headaches-will contact [facility] for a new sleep study Neck pain -spinal stenosis -[facility] has attempted to contact patient with no response from Mary-I have instructed her to call them and get appt scheduled . Hemorrhoidal skin tag-no acute inflammation today -may use hemorrhoid cream as directed as needed-call with any concerns, bleeding, etc. . Ulcer left ceyd-ozljghkd-a/u in 10 days Use suppositories every night for the next 3 nights . Constipation - uncontrolled - I have discussed with the patient the need for adequate fiber and water intake to facilitate soft, easily passed stools. The pt noted understanding of our conversation. I have also recommended that she continue to follow the instructions given to her from her army helicopter pilot and she is to call him if [...] syndrome - continue with current treatment per web interface developer. I have recommend use of biofreeze to [...] up with Ortho physician if pain persists. USE BACTROBAN (MUPIROCIN) OINTMENT ON ABRASION LEFT KNEE TWICE DAILY UNTIL HEALED REFER TO PHYSICAL THERAPY FOR RIGHT KNEE AND ANKLE PAIN-STRENGTHENING IN RIGHT LEG . Abrasion of left knee-RX for bactroban twice daily-keep clean and dry and call if does not resolve. Right knee and ankle weakness/pain-recommend physical therapy for strengthening INCREASE HYDROCODONE TO 5 TABS/DAY-IF PAIN UNCONTROLLED, [...] situational exposure. No change in current medications. Dr Saunders -[facility] . Bilateral foot and ankle pain-now has AFOs-we have made her several appt with podiatrists which she has not kept-recommend patient call Dr Saunders and reschedule appt with him. Neck pain-[facility] appt next week-KEEP APPOINTMENT! SET UP APPOINTMENT FOR AQUA THERAPY XRAY RIGHT FOOT . Right foot pain-fell on 05/23/15 and still having pain-plan to xray right foot-patient to follow up with Dr Pham as scheduled for chronic feet and ankle instability/pain. Refer patient to [facility] for aqua therapy. Patient verbalized understanding of plan. MAKE APPOINTMENT CALLY KELLY/DR IBARRA TO FOLLOW [...] B12 injection today in the office . Joint pain - again reassured Iker [...] pain control and symptom management sparingly. . Neck pain-plan to xray cervical spine-refer [...] at home. Hyperlipidemia - check labs . Chronic Pain Syndrome - pt has chronic pain - has been maintained on current medications, has not sought out other medications, only uses PRN pain medications as directed, and understands the consequences of over- medication. Right hip/knee/ankle pain-improving since last fall-continue physical therapy exercises-continue supportive shoes and use walker for stability . Low back pain-discussed need to evaluate cervical issues first-may benefit from PT-continue anti inflammatories as directed Cervical stenosis-called Dr Ramey's office-referral pending-they will call the patient with the appt . Knee and Ankle pain and instability- recommend re- evaluation by an asset protection specialist at [facility] the [address] [place] [address]. Pt has been recommended to go back to Dr. Corbin at [facility] the [address] [place] [phone] as my office did not get a [...] for treatment of fibromyalgia. REFER TO [facility] DX BILATERAL FOOT AND ANKLE PAIN . Bilateral foot pain-foot drop-patient getting AFOs-refer to podiatry for evaluation-wants to see someone in [place] . Neck pain after fall - Will check x-ray, Pt is to follow up with Dr. Perez. Pt is to notify clinic if symptoms do not improve, if they worsen, or with any questions or concerns. MRI NECK AND BRAIN Call [facility] to see if they can [...] the list of the neurologists that her cad programmer has recommended and we would consider a [...] Vitamin d deficiency-check vitamin d level . Ulcer of poxn-iqevxnx-gmycb instructions provided today and instructed patient to return as directed-keep wound clean and dry. Hemorrhoids-refill anusol suppositories and use as directed B12 deficiency-b12 injection today in the office Upvaxsnjn-mblbcbuczdnz-oeopwuv injection today in the office-continue oral medications [...] pressure readings at home. . Generalized abd pxnd-YCT-hhfjay cipro/flagyl-culture urine-recommend patient follow up with Dr Grace for an appt if abdominal pain does not improve Low potassium-check labs . Generalized abd prso-TEV-vdekfg cipro/flagyl-culture urine-recommend patient follow up with Dr [...] for acute changes B12 injection . Neck trbn-afxpbpk-opweklo to continue f/u with [facility]-her symptoms have [...] regimen-no changes in medications Dr. Ramey - [facility] . Hypertension - well controlled - continue [...] are not controlled with the medication. . Hypertension - well controlled - [...] the list of the neurologists that her cad programmer has recommended and we would consider a [...] if any worse. Patient verbalized understanding. Neck iple-kmxazrt-qgloylkgi physical therapy-patient declined at this time- going to see the web interface developer this afternoon. B12 deficiency-B12 injection today in [...] spray. Kenalog injection today in the office. DEMETRIA WRAPS TO LOWER LEGS CUT BACK [...] pain and instability- recommend evaluation by an asset protection specialist at [facility]. [...] (may be called three old goats) at [employer] and home. . Hypertension - well controlled [...] wall pain-xray ribs negative-continue to monitor symptoms CHECK LABS WILL GET REPORT FROM DR [...] wall pain-xray ribs negative-continue to monitor symptoms . Ulcer of knee-fibrous tissue debrided today in the office --wound care instructions provided for patient-return in 1 week for follow up. EMG referral to [facility] . Hypertension - [...] in 10 days for follow up. Check CBC, CMP, Influenza swab, and chest [...] Dr. Grace before her next infusion . Ulcer of knee-wound care instructions provided for patient-patient and mother verbalized understanding of plan.
--- OUTSIDE RECORDS SUMMARY | 2018-08-03 09:21 | XMS REPORT | Continuity of Care Document ---
Author Author [facility] of [facility] of [facility] Address Unknown Phone Unavailable Allergies Active Description Code Type Severity Reaction Onset Reported/Identified Relationship to Patient Clinical Status Yes latex [id number] Drug Allergy Unknown N/A 08/29/2013 Yes Sulfa (Sulfonamide Antibiotics) [id number] Drug Allergy Unknown N/A 2013 Medications There [...] 729.1 06/05/2014 Ot 780.60 06/05/2014 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 ANALYTICAL LEAD Ot 266.2 06/05/2014 SAILAJA NO, SVETLANA A Ot 519.11 06/05/2014 SAILAJA NO, SVETLANA A Ot 786.09 06/05/2014 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 ANALYTICAL LEAD Ot 266.2 06/24/2014 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 ANALYTICAL LEAD Ot 266.2 B-COMPLEX DEFIC NEC 07/05/2014 BROOKS MADDOX ANALYTICAL LEAD Ot 719.47 07/05/2014 BROOKS MADDOX ANALYTICAL LEAD Ot 729.5 07/06/2014 BROOKS MADDOX ANALYTICAL LEAD Ot 719.47 07/06/2014 BROOKS MADDOX ANALYTICAL LEAD Ot 729.5 09/13/2014 BROOKS MADDOX ANALYTICAL LEAD Ot 266.2 10/11/2014 BROOKS MADDOX ANALYTICAL LEAD Ot 266.2 10/26/2014 BROOKS MADDOX ANALYTICAL LEAD Ot 266.2 10/26/2014 BROOKS MADDOX ANALYTICAL LEAD Ot 266.2 11/14/2014 BROOKS MADDOX ANALYTICAL LEAD Ot 266.2 B-COMPLEX DEFIC NEC 11/14/2014 BROOKS MADDOX ANALYTICAL LEAD Ot 266.2 12/25/2014 BROOKS MADDOX ANALYTICAL LEAD Ot 266.2 01/23/2015 BROOKS MADDOX ANALYTICAL LEAD Ot 266.2 01/29/2015 BROOKS MADDOX ANALYTICAL LEAD Ot 266.2 01/30/2015 Ot 786.50 01/30/2015 Ot [...] SVETLANA A Ot 786.09 01/30/2015 BROOKS MADDOX ANALYTICAL LEAD Ot 719.47 01/30/2015 BROOKS MADDOX ANALYTICAL LEAD Ot 729.5 01/30/2015 BROOKS MADDOX ANALYTICAL LEAD Ot 266.2 01/30/2015 BROOKS MADDOX ANALYTICAL LEAD Ot 266.2 02/01/2015 BROOKS MADDOX ANALYTICAL LEAD Ot 266.2 02/22/2015 BROOKS MADDOX ANALYTICAL LEAD Ot 719.46 JOINT PAIN-L/LEG 02/22/2015 BROOKS MADDOX ANALYTICAL LEAD Ot 728.87 MUSCLE WEAKNESS (GENERALIZED) 02/22/2015 BROOKS MADDOX ANALYTICAL LEAD Ot M25.569 PAIN IN UNSPECIFIED KNEE 02/22/2015 BROOKS MADDOX ANALYTICAL LEAD Ot M62.81 MUSCLE WEAKNESS (GENERALIZED) 02/22/2015 BROOKS MADDOX ANALYTICAL LEAD Ot V57.1 PHYSICAL THERAPY NEC 02/22/2015 BROOKS MADDOX ANALYTICAL LEAD Ot Z51.89 ENCOUNTER FOR OTHER SPECIFIED AFTERCARE 02/26/2015 BROOKS MADDOX ANALYTICAL LEAD Ot 266.2 02/26/2015 BROOKS MADDOX ANALYTICAL LEAD Ot 266.2 03/06/2015 BROOKS MADDOX ANALYTICAL LEAD Ot 266.2 B-COMPLEX DEFIC NEC 04/03/2015 BROOKS MADDOX ANALYTICAL LEAD Ot 266.2 04/04/2015 BROOKS MADDOX ANALYTICAL LEAD Ot 266.2 05/06/2015 BROOKS MADDOX ANALYTICAL LEAD Ot E53.8 05/30/2015 BROOKS MADDOX ANALYTICAL LEAD Ot E53.8 06/10/2015 BROOKS MADDOX ANALYTICAL LEAD Ot E53.8 06/25/2015 Ot 959.3 06/25/2015 Ot [...] A Ot 786.09 06/25/2015 VARSHA BROOKS Patrick ANALYTICAL LEAD Ot 719.47 06/25/2015 VARSHA BROOKS Patrick ANALYTICAL LEAD Ot 729.5 06/25/2015 BROOKS MADDOX ANALYTICAL LEAD Ot 266.2 06/25/2015 VARSHA BROOKS Patrick ANALYTICAL LEAD Ot E53.8 07/02/2015 VLADIMIR MADDOXKIRA Patrick ANALYTICAL LEAD Ot E53.8 DEFICIENCY OF OTHER SPECIFIED B GROUP 07/23/2015 BROOKS MADDOX Celina ANALYTICAL LEAD Ot M79.671 07/23/2015 BROOKS MADDOX Celina ANALYTICAL LEAD Ot E53.8 07/23/2015 VARSHA BROOKS Patrick ANALYTICAL LEAD Ot E53.8 07/24/2015 VARSHA BROOKS Patrick ANALYTICAL LEAD Ot E53.8 07/25/2015 VARSHA BROOKS Patrick ANALYTICAL LEAD Ot M79.671 08/27/2015 VARSHA BROOKS Patrick ANALYTICAL LEAD Ot E53.8 09/04/2015 VLADIMIR MADDOXKIRA Patrick ANALYTICAL LEAD Ot E53.8 09/10/2015 BROOKS MADDOX ANALYTICAL LEAD Ot M47.892 09/10/2015 VLADIMIR MADDOXKIRA Patrick ANALYTICAL LEAD Ot M47.892 09/13/2015 YONATAN MADDOXIWONA Patrick ANALYTICAL LEAD Ot E53.8 10/21/2015 BROOKS MADDOX ANALYTICAL LEAD Ot E53.8 DEFICIENCY OF OTHER SPECIFIED B GROUP 03/02/2016 CALLUM BRISENO MD, Ot F41.9 ANXIETY DISORDER, UNSPECIFIED 03/02/2016 FINN NO, CALLUM Meeks Ot Z53.21 PROC/TRTMT NOT CRD OUT D/T PT LV BEF SEE 03/04/2016 CALLUM BRISENO MD, Ot F41.9 ANXIETY DISORDER, UNSPECIFIED 03/04/2016 FINN NO, CALLUM Meeks Ot Z53.21 PROC/TRTMT NOT CRD OUT D/T PT LV BEF SEE 03/09/2016 ISSA SALOMON TELEGRAPH EDITOR Ot M54.5 LOW BACK PAIN 03/12/2016 ISSA SALOMON TELEGRAPH EDITOR Ot M54.5 LOW BACK PAIN 03/13/2016 ISSA SALOMON TELEGRAPH EDITOR Ot M54.5 LOW BACK PAIN 03/30/2016 ISSA SALOMON TELEGRAPH EDITOR Ot M54.5 LOW BACK PAIN 04/02/2016 UMMISSA Celina TELEGRAPH EDITOR Ot M54.5 LOW BACK PAIN 04/03/2016 Ot [...] RESPIRATORY ABNORM NEC 04/03/2016 MADDOX, BROOKS M ANALYTICAL LEAD Ot 719.47 JOINT PAIN-ANKLE 04/03/2016 BROOKS MADDOX ANALYTICAL LEAD Ot 729.5 PAIN IN LIMB 04/03/2016 BROOKS MADDOX ANALYTICAL LEAD Ot 266.2 B-COMPLEX DEFIC NEC 04/03/2016 BROOKS MADDOX ANALYTICAL LEAD Ot M79.671 PAIN IN RIGHT FOOT 04/03/2016 BROOKS MADDOX ANALYTICAL LEAD Ot M47.892 OTHER SPONDYLOSIS, CERVICAL REGION 04/03/2016 MADDOXBROOKS Celina ANALYTICAL LEAD Ot E53.8 DEFICIENCY OF OTHER SPECIFIED B GROUP 04/03/2016 ISSA SALOMON APRN Ot M54.5 LOW BACK PAIN 04/06/2016 VARSHABROOKS ANALYTICAL LEAD Ot R07.89 OTHER CHEST PAIN 04/06/2016 MADDOXBROOKS Celina ANALYTICAL LEAD Ot W19.XXXA UNSPECIFIED FALL, INITIAL ENCOUNTER 04/06/2016 MADDOXBROOKS ANALYTICAL LEAD Ot Y99.8 OTHER EXTERNAL CAUSE STATUS 04/24/2016 VARSHABROOKS Celina ANALYTICAL LEAD Ot R07.89 OTHER CHEST PAIN 04/24/2016 BROOKS MADDOX ANALYTICAL LEAD Ot W19.XXXA UNSPECIFIED FALL, INITIAL ENCOUNTER 04/24/2016 BROOKS MADDOX ANALYTICAL LEAD Ot Y99.8 OTHER EXTERNAL CAUSE STATUS 05/04/2016 MADDOXBROOKS Celina ANALYTICAL LEAD Ot R07.89 OTHER CHEST PAIN 05/04/2016 BROOKS MADDOX Celina ANALYTICAL LEAD Ot W19.XXXA UNSPECIFIED FALL, INITIAL ENCOUNTER 05/04/2016 VARSHABROOKS Celina ANALYTICAL LEAD Ot Y99.8 OTHER EXTERNAL CAUSE STATUS 06/17/2016 VARSHA BROOKS M ANALYTICAL LEAD Ot M48.02 SPINAL STENOSIS, CERVICAL REGION 07/08/2016 VARSHABROOKS Celina ANALYTICAL LEAD Ot M48.02 SPINAL STENOSIS, CERVICAL REGION 07/15/2016 VARSHAVLADIMIRKIRA Patrick ANALYTICAL LEAD Ot M48.02 SPINAL STENOSIS, CERVICAL REGION 07/16/2016 ISSA SALOMON APRN Ot M54.2 CERVICALGIA 07/16/2016 ISSA SALOMON TELEGRAPH EDITOR Ot S19.9XXA UNSPECIFIED INJURY OF NECK, INITIAL ENCO 07/16/2016 ISSA SALOMON APRN Ot W19.XXXA UNSPECIFIED FALL, INITIAL ENCOUNTER 07/16/2016 UMM, ISSA M TELEGRAPH EDITOR Ot Y99.8 OTHER EXTERNAL CAUSE STATUS 07/16/2016 ISSA SALOMON TELEGRAPH EDITOR Ot M54.2 CERVICALGIA 07/16/2016 ISSA SALOMON TELEGRAPH EDITOR Ot S19.9XXA UNSPECIFIED INJURY OF NECK, INITIAL ENCO 07/16/2016 ISSA SALOMON TELEGRAPH EDITOR Ot W19.XXXA UNSPECIFIED FALL, INITIAL ENCOUNTER 07/16/2016 ISSA SALOMON TELEGRAPH EDITOR Ot Y99.8 OTHER EXTERNAL CAUSE STATUS 08/04/2016 BROOKS MADDOX ANALYTICAL LEAD Ot M25.571 PAIN IN RIGHT ANKLE AND JOINTS OF RIGHT 08/04/2016 BROOKS MADDOX ANALYTICAL LEAD Ot M25.572 PAIN IN LEFT ANKLE AND JOINTS OF LEFT FO 08/04/2016 BROOKS MADDOX ANALYTICAL LEAD Ot W19.XXXA UNSPECIFIED FALL, INITIAL ENCOUNTER 08/04/2016 BROOKS MADDOX ANALYTICAL LEAD Ot Y99.8 OTHER EXTERNAL CAUSE STATUS 08/06/2016 BROOKS MADDOX ANALYTICAL LEAD Ot M25.571 PAIN IN RIGHT ANKLE AND JOINTS OF RIGHT 08/06/2016 BROOKS MADDOX ANALYTICAL LEAD Ot M25.572 PAIN IN LEFT ANKLE AND JOINTS OF LEFT FO 08/06/2016 BROOKS MADDOX ANALYTICAL LEAD Ot W19.XXXA UNSPECIFIED FALL, INITIAL ENCOUNTER 08/06/2016 BROOKS MADDOX ANALYTICAL LEAD Ot Y99.8 OTHER EXTERNAL CAUSE STATUS 08/06/2016 BROOKS MADDOX ANALYTICAL LEAD Ot M25.571 PAIN IN RIGHT ANKLE AND JOINTS OF RIGHT 08/06/2016 BROOKS MADDOX ANALYTICAL LEAD Ot M25.572 PAIN IN LEFT ANKLE AND JOINTS OF LEFT FO 08/06/2016 BROOKS MADDOX ANALYTICAL LEAD Ot W19.XXXA UNSPECIFIED FALL, INITIAL ENCOUNTER 08/06/2016 BROOKS MADDOX ANALYTICAL LEAD Ot Y99.8 OTHER EXTERNAL CAUSE STATUS 08/07/2016 ISSA SALOMON TELEGRAPH EDITOR Ot M54.2 CERVICALGIA 08/07/2016 ISSA SALOMON TELEGRAPH EDITOR Ot S19.9XXA UNSPECIFIED INJURY OF NECK, INITIAL ENCO 08/07/2016 ISSA SALOMON TELEGRAPH EDITOR Ot W19.XXXA UNSPECIFIED FALL, INITIAL ENCOUNTER 08/07/2016 ISSA SALOMON TELEGRAPH EDITOR Ot Y99.8 OTHER EXTERNAL CAUSE STATUS 08/12/2016 ISSA SALOMON TELEGRAPH EDITOR Ot M54.2 CERVICALGIA 08/12/2016 ISSA SALOMNO TELEGRAPH EDITOR Ot S19.9XXA UNSPECIFIED INJURY OF NECK, INITIAL ENCO 08/12/2016 ISSA SALOMON TELEGRAPH EDITOR Ot W19.XXXA UNSPECIFIED FALL, INITIAL ENCOUNTER 08/12/2016 ISSA SALOMON TELEGRAPH EDITOR Ot Y99.8 OTHER EXTERNAL CAUSE STATUS 08/21/2016 BROOKS MADDOX ANALYTICAL LEAD Ot M25.571 PAIN IN RIGHT ANKLE AND JOINTS OF RIGHT 08/21/2016 BROOKS MADDOX ANALYTICAL LEAD Ot M25.572 PAIN IN LEFT ANKLE AND JOINTS OF LEFT FO 08/21/2016 BROOKS MADDOX ANALYTICAL LEAD Ot W19.XXXA UNSPECIFIED FALL, INITIAL ENCOUNTER 08/21/2016 BROOKS MADDOX ANALYTICAL LEAD Ot Y99.8 OTHER EXTERNAL CAUSE STATUS 08/25/2016 BROOKS MADDOX ANALYTICAL LEAD Ot M25.371 OTHER INSTABILITY, RIGHT ANKLE 08/25/2016 BROOKS MADDOX ANALYTICAL LEAD Ot M25.571 PAIN IN RIGHT ANKLE AND JOINTS OF RIGHT 2016 BROOKS MADDOX ANALYTICAL LEAD Ot M25.571 PAIN IN RIGHT ANKLE AND JOINTS OF RIGHT 2016 BROOKS MADDOX ANALYTICAL LEAD Ot M25.572 PAIN IN LEFT ANKLE AND JOINTS OF LEFT FO 2016 VARSHA BROOKS M ANALYTICAL LEAD Ot W19.XXXA UNSPECIFIED FALL, INITIAL ENCOUNTER 2016 BROOKS MADDOX ANALYTICAL LEAD Ot Y99.8 OTHER EXTERNAL CAUSE STATUS 09/16/2016 BROOKS MADDOX ANALYTICAL LEAD Ot M25.371 OTHER INSTABILITY, RIGHT ANKLE 09/16/2016 BROOKS MADDOX ANALYTICAL LEAD Ot M25.571 PAIN IN RIGHT ANKLE AND JOINTS OF RIGHT 09/25/2016 BROOKS MADDOX ANALYTICAL LEAD Ot M25.371 OTHER INSTABILITY, RIGHT ANKLE 09/25/2016 BROOKS MADDOX ANALYTICAL LEAD Ot M25.571 PAIN IN RIGHT ANKLE AND [...] 04/19/2017 JULIETTE BECERRA Ot M54.2 CERVICALGIA 04/19/2017 JULIETTE BECERRA Ot R51 HEADACHE 04/19/2017 JULIETTE BECERRA [...] 786.09 RESPIRATORY ABNORM NEC 06/26/2017 BROOKS MADDOX ANALYTICAL LEAD Ot 719.47 JOINT PAIN-ANKLE 06/26/2017 BROOKS MADDOX ANALYTICAL LEAD Ot 729.5 PAIN IN LIMB 06/26/2017 BROOKS MADDOX ANALYTICAL LEAD Ot 266.2 B-COMPLEX DEFIC NEC 06/26/2017 BROOKS MADDOX ANALYTICAL LEAD Ot M79.671 PAIN IN RIGHT FOOT 06/26/2017 BROOKS MADDOX ANALYTICAL LEAD Ot M47.892 OTHER SPONDYLOSIS, CERVICAL REGION 06/26/2017 BROOKS MADDOX ANALYTICAL LEAD Ot E53.8 DEFICIENCY OF OTHER SPECIFIED B GROUP 06/26/2017 ISSA SALOMON TELEGRAPH EDITOR Ot M54.5 LOW BACK PAIN 06/26/2017 BROOKS MADDOX ANALYTICAL LEAD Ot R07.89 OTHER CHEST PAIN 06/26/2017 BROOKS MADDOX ANALYTICAL LEAD Ot W19.XXXA UNSPECIFIED FALL, INITIAL ENCOUNTER 06/26/2017 BROOKS MADDOX ANALYTICAL LEAD Ot Y99.8 OTHER EXTERNAL CAUSE STATUS 06/26/2017 BROOKS MADDOX ANALYTICAL LEAD Ot M48.02 SPINAL STENOSIS, CERVICAL REGION 06/26/2017 ISSA SALOMON TELEGRAPH EDITOR Ot M54.2 CERVICALGIA 06/26/2017 ISSA SALOMON TELEGRAPH EDITOR Ot S19.9XXA UNSPECIFIED INJURY OF NECK, INITIAL ENCO 06/26/2017 ISSA SALOMON TELEGRAPH EDITOR Ot W19.XXXA UNSPECIFIED FALL, INITIAL ENCOUNTER 06/26/2017 ISSA SALOMON TELEGRAPH EDITOR Ot Y99.8 OTHER EXTERNAL CAUSE STATUS 06/26/2017 BROOKS MADDOX ANALYTICAL LEAD Ot M25.571 PAIN IN RIGHT ANKLE AND JOINTS OF RIGHT 06/26/2017 BROOKS MADDOX ANALYTICAL LEAD Ot M25.572 PAIN IN LEFT ANKLE AND JOINTS OF LEFT FO 06/26/2017 BROOKS MADDOX ANALYTICAL LEAD Ot W19.XXXA UNSPECIFIED FALL, INITIAL ENCOUNTER 06/26/2017 BROOKS MADDOX ANALYTICAL LEAD Ot Y99.8 OTHER EXTERNAL CAUSE STATUS 06/26/2017 BROOKS MADDOX ANALYTICAL LEAD Ot M25.371 OTHER INSTABILITY, RIGHT ANKLE 06/26/2017 BROOKS MADDOX ANALYTICAL LEAD Ot M25.571 PAIN IN RIGHT ANKLE AND JOINTS OF RIGHT 06/26/2017 HEARNDAYLEEN GOLD DO Ot M54.16 RADICULOPATHY, LUMBAR REGION 07/02/2017 VALENTÍNNDON AYLEEN LEON Ot M46.1 SACROILIITIS, NOT ELSEWHERE CLASSIFIED 07/23/2017 VALENTÍNNDON AYLEEN LEON Ot M46.1 SACROILIITIS, NOT ELSEWHERE CLASSIFIED 09/09/2017 CALLUM BRISENO MD Ot E87.6 HYPOKALEMIA 09/09/2017 CALLUM BRISENO MD Ot F32.9 MAJOR DEPRESSIVE DISORDER, SINGLE EPISOD 09/09/2017 CALLUM BRISENO MD Ot G43.909 MIGRAINE, UNSP, NOT INTRACTABLE, WITHOUT 09/09/2017 CALLUM BRISENO MD Ot G47.30 SLEEP APNEA, UNSPECIFIED 09/09/2017 CALLUM BRISENO MD Ot I10 ESSENTIAL (PRIMARY) HYPERTENSION 09/09/2017 CALLUM BRISENO MD, Ot J44.9 CHRONIC OBSTRUCTIVE PULMONARY DISEASE, U 09/09/2017 CALLUM BRISENO MD Ot K21.9 GASTRO-ESOPHAGEAL REFLUX DISEASE WITHOUT 09/09/2017 CALLUM BRISENO MD Ot 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, UNSPECIFIED, WITH UNSPE 09/09/2017 CALLUM BRISENO MD Ot N39.0 URINARY TRACT INFECTION, SITE NOT SPECIF 09/09/2017 CALLUM BRISENO MD Ot R10.9 UNSPECIFIED ABDOMINAL PAIN 09/09/2017 CALLUM BRISENO MD, Ot Z79.51 MCFP (CURRENT) USE OF INHALED STERO 09/09/2017 CALLUM BRISENO MD Ot Z79.52 HOUSEFELLOW (CURRENT) USE OF SYSTEMIC STER 09/09/2017 CALLUM BRISENO MD, Ot Z88.2 ALLERGY STATUS TO SULFONAMIDES STATUS 09/09/2017 CALLUM BRISENO MD, Ot Z90.710 ACQUIRED ABSENCE OF BOTH CERVIX AND UTER 09/09/2017 CALLUM BRISENO MD Ot Z91.048 OTHER NONMEDICINAL SUBSTANCE ALLERGY STA 09/13/2017 CALLUM BRISENO MD Ot E87.6 HYPOKALEMIA 09/13/2017 CALLUM BRISENO MD Ot F32.9 MAJOR DEPRESSIVE DISORDER, SINGLE EPISOD 09/13/2017 CALLUM BRISENO MD Ot G43.909 MIGRAINE, UNSP, NOT INTRACTABLE, WITHOUT 09/13/2017 CALLUM BRISENO MD Ot G47.30 SLEEP APNEA, UNSPECIFIED 09/13/2017 CALLUM BRISENO MD Ot I10 ESSENTIAL (PRIMARY) HYPERTENSION 09/13/2017 CALLUM BRISENO MD, Ot J44.9 CHRONIC OBSTRUCTIVE PULMONARY DISEASE, U 09/13/2017 CALLUM BRISENO MD Ot K21.9 GASTRO-ESOPHAGEAL REFLUX DISEASE WITHOUT 09/13/2017 CALLUM BRISENO MD Ot 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, UNSPECIFIED, WITH UNSPE 09/13/2017 CALLUM BRISENO MD Ot N39.0 URINARY TRACT INFECTION, SITE NOT SPECIF 09/13/2017 CALLUM BRISENO MD, Ot R10.9 UNSPECIFIED ABDOMINAL PAIN 09/13/2017 CALLUM BRISENO MD Ot Z79.51 HOUSEFELLOW (CURRENT) USE OF INHALED STERO 09/13/2017 CALLUM BRISENO MD Ot Z79.52 HOUSEFELLOW (CURRENT) USE OF SYSTEMIC STER 09/13/2017 CALLUM BRISENO MD, Ot Z88.2 ALLERGY STATUS TO SULFONAMIDES STATUS 09/13/2017 CALLUM BRISENO MD, Ot Z90.710 ACQUIRED ABSENCE OF BOTH CERVIX AND UTER 09/13/2017 CALLUM BRISENO MD, Ot Z91.048 OTHER NONMEDICINAL SUBSTANCE ALLERGY STA 11/30/2017 BROOKS MADDOX ANALYTICAL LEAD Ot M47.812 SPONDYLOSIS W/O MYELOPATHY OR RADICULOPA 11/30/2017 BROOKS MADDOX ANALYTICAL LEAD Ot M48.02 SPINAL STENOSIS, CERVICAL REGION 11/30/2017 BROOKS MADDOX ANALYTICAL LEAD Ot M99.71 CONN TISS AND DISC STENOSIS OF INTVRT FO 11/30/2017 BROOKS MADDOX ANALYTICAL LEAD Ot Z87.828 PERSONAL HISTORY OF OTH (HEALED) PHYSICA 12/21/2017 BROOKS MADDOX ANALYTICAL LEAD Ot M47.812 SPONDYLOSIS W/O MYELOPATHY OR RADICULOPA 12/21/2017 BROOKS MADDOX ANALYTICAL LEAD Ot M48.02 SPINAL STENOSIS, CERVICAL REGION 12/21/2017 BROOKS MADDOX ANALYTICAL LEAD Ot M99.71 CONN TISS AND DISC STENOSIS OF INTVRT FO 12/21/2017 BROOKS MADDOX ANALYTICAL LEAD Ot Z87.828 PERSONAL HISTORY OF OTH (HEALED) PHYSICA 12/29/2017 BROOKS MADDOX ANALYTICAL LEAD Ot M47.812 SPONDYLOSIS W/O MYELOPATHY OR RADICULOPA 12/29/2017 BROOKS MADDOX ANALYTICAL LEAD Ot M48.02 SPINAL STENOSIS, CERVICAL REGION 12/29/2017 BROOKS MADDOX ANALYTICAL LEAD Ot M99.71 CONN TISS AND DISC STENOSIS OF INTVRT FO 12/29/2017 BROOKS MADDOX ANALYTICAL LEAD Ot Z87.828 PERSONAL HISTORY OF OTH (HEALED) PHYSICA 02/04/2018 BROOKS MADDOXP Ot F39 UNSPECIFIED MOOD [AFFECTIVE] DISORDER 02/04/2018 BROOKS MADDOXP Ot G47.10 HYPERSOMNIA, UNSPECIFIED 02/04/2018 BROOKS MADDOX ANALYTICAL LEAD Ot G47.33 OBSTRUCTIVE SLEEP APNEA (ADULT) (PEDIATR 02/04/2018 BROOKS MADDOX ANALYTICAL LEAD Ot I10 ESSENTIAL (PRIMARY) HYPERTENSION 02/04/2018 BROOKS MADDOX ANALYTICAL LEAD Ot R51 HEADACHE 02/04/2018 BROOKS MADDOX ANALYTICAL LEAD Ot F39 UNSPECIFIED MOOD [AFFECTIVE] DISORDER 02/04/2018 BROOKS MADDOX ANALYTICAL LEAD Ot G47.10 HYPERSOMNIA, UNSPECIFIED 02/04/2018 BROOKS MADDOX ANALYTICAL LEAD Ot G47.33 OBSTRUCTIVE SLEEP APNEA (ADULT) (PEDIATR 02/04/2018 BROOKS MADDOX ANALYTICAL LEAD Ot I10 ESSENTIAL (PRIMARY) HYPERTENSION 02/04/2018 VARSHA BROOKS M ANALYTICAL LEAD Ot R51 HEADACHE 03/10/2018 TOPHER ON, AYLEEN Mcdonald Ot G47.33 OBSTRUCTIVE SLEEP APNEA (ADULT) (PEDIATR 04/01/2018 TOPHER NO, AYLEEN Mcdonald Ot G47.33 OBSTRUCTIVE SLEEP APNEA (ADULT) (PEDIATR 04/02/2018 TOPHER NO, AYLEEN Mcdonald Ot G47.33 OBSTRUCTIVE SLEEP APNEA (ADULT) (PEDIATR 04/05/2018 TOPHER NO, AYLEEN Mcdonald Ot G47.33 OBSTRUCTIVE SLEEP APNEA (ADULT) (PEDIATR Procedures Code Description [place] [address] PSYCH DIAGNOSTIC EVALUATION 03/14/2013 36864 PSYTX PT&/FAMILY 45 MINUTES 04/06/2013 26641 PSYTX PT&/FAMILY 45 MINUTES 06/15/2013 64100 PSYTX PT&/FAMILY 45 MINUTES 08/03/2013 67086 PSYTX PT&/FAMILY 45 MINUTES 08/28/2013 72911 PSYTX PT&/FAMILY 45 MINUTES 09/25/2013 28054 PSYTX PT&/FAMILY 45 MINUTES 10/20/2013 99432 PSYTX PT&/FAMILY 45 MINUTES 12/01/2013 34922 PSYTX PT&/FAMILY 45 MINUTES 12/19/2013 92601 PSYTX PT&/FAMILY 45 MINUTES 01/11/2014 23088 PSYTX PT&/FAMILY 30 MINUTES 02/16/2014 16311 PSYTX PT&/FAMILY 45 MINUTES 02/23/2014 49194 PSYTX PT&/FAMILY 45 MINUTES 03/23/2014 60222 PSYTX PT&/FAMILY 45 MINUTES 03/30/2014 00830 PSYTX PT&/FAMILY 45 MINUTES 04/17/2014 66081 PSYTX PT&/FAMILY 45 MINUTES 05/07/2014 61713 PSYTX PT&/FAMILY 45 MINUTES 07/12/2014 20031 PSYTX PT&/FAMILY 30 MINUTES 09/17/2014 97808 PSYTX PT&/FAMILY 45 MINUTES 10/01/2014 Results Test [...] urinalysis with reflex to culture YES NRG Bacterial urine culture - 09/09/17 04:29 URINE CULTURE RESULTS <10,000/ML NRG Complete blood count (CBC) with automated white blood cell (WBC) differential - 08/03/18 05:53 Blood leukocytes automated count (number/volume) 9.1 10*3/uL 4.3-11.0 Blood erythrocytes automated count (number/volume) 4.12 10*6/uL 4.35-5.85 Venous blood hemoglobin measurement (mass/volume) 12.8 g/dL 11.5-16.0 Blood hematocrit (volume fraction) 41 % 35-52 Automated erythrocyte mean corpuscular volume 98 [foz_us] 80-99 Automated erythrocyte mean corpuscular hemoglobin (mass per erythrocyte) 31 pg 25-34 Automated erythrocyte mean corpuscular hemoglobin concentration measurement ( mass/volume) 32 g/dL 32-36 Automated erythrocyte distribution width ratio 13.6 % 10.0-14.5 Automated blood platelet count (count/volume) 248 10*3/uL 130-400 Automated blood platelet mean volume measurement 9.1 [foz_us] 7.4-10.4 Automated blood neutrophils/100 leukocytes 53 % 42-75 Automated blood lymphocytes/100 leukocytes 36 % 12-44 Blood monocytes/100 leukocytes 10 % 0-12 Automated blood eosinophils/100 leukocytes 2 % 0-10 Automated blood basophils/100 leukocytes 0 % 0-10 Blood neutrophils automated count (number/volume) 4.8 10*3 1.8-7.8 Blood lymphocytes automated count (number/volume) 3.2 10*3 1.0-4.0 Blood monocytes automated count (number/volume) 0.9 10*3 0.0-1.0 Automated eosinophil count 0.2 10*3/uL 0.0-0.3 Automated blood basophil count (count/volume) 0.0 10*3/uL 0.0-0.1 Encounters ACCT No. Visit Date/Time Discharge Status Pt. Type Provider Facility Loc./Unit Complaint [id number] 10/01/2014 13:06:00 10/01/2014 23:59:59 [facility] YOMI CARBALLO PHD [id number] 09/17/2014 10:59:00 09/17/2014 23:59:59 [facility] YOMI CARBALLO PHD [id number] 07/12/2014 14:55:00 07/12/2014 23:59:59 YOMI Benavides PHD [id number] 05/07/2014 16:00:00 05/07/2014 23:59:59 [facility] YOMI CARBALLO PHD [id number] 04/17/2014 14:05:00 04/17/2014 23:59:59 YOMI Benavides PHD [id number] 03/30/2014 16:05:00 03/30/2014 23:59:59 [facility] YOMI CARBALLO PHD [id number] 03/23/2014 15:59:00 03/23/2014 23:59:59 YOMI Benavides PHD [id number] 03/17/2014 13:39:00 03/17/2014 23:59:59 MELO Moulton APRN [id number] 02/23/2014 11:07:00 02/23/2014 23:59:59 YOMI Benavides PHD [id number] 02/16/2014 15:09:00 02/16/2014 23:59:59 [facility] YOMI CARBALLO PHD [id number] 01/11/2014 14:06:00 01/11/2014 23:59:59 [facility] YOMI CARBALLO PHD [id number] 12/19/2013 13:06:00 12/19/2013 23:59:59 [facility] YOMI CARBALLO PHD [id number] 12/01/2013 14:58:00 12/01/2013 23:59:59 YOMI Benavides PHD [id number] 10/20/2013 13:10:00 10/20/2013 23:59:59 [facility] YOMI CARBALLO PHD [id number] 09/25/2013 12:55:00 09/25/2013 23:59:59 [facility] YOMI CARBALLO PHD [id number] 08/28/2013 12:57:00 08/28/2013 23:59:59 [facility] Outpatient YOMI CARBALLO PHD [id number] 08/03/2013 12:49:00 08/03/2013 23:59:59 [facility] Outpatient YOMI CARBALLO PHD [id number] 06/14/2013 15:03:00 06/14/2013 23:59:59 [facility] Outpatient YOMI CARBALLO PHD [id number] 04/06/2013 14:04:00 04/06/2013 23:59:59 CLS Outpatient YOMI CARBALLO PHD [id number] 03/14/2013 10:02:00 03/14/2013 23:59:59 CLS Outpatient YOMI CARBALLO PHD [id number] 04/21/2017 12:21:47 04/21/2017 23:59:59 CLS Outpatient [id number] 02/26/2015 13:04:35 ACT Document Registration [id number] 07/27/2018 14:00:00 07/27/2018 23:59:59 CLS Outpatient [facility] [id number] 04/01/2018 19:35:00 04/02/2018 07:12:00 DIS Outpatient AYLEEN OBANDO MD [facility] SLEEP GWENDOLYN G47.33 [id number] 02/03/2018 20:41:00 02/04/2018 06:35:00 DIS Outpatient BROOKS MADDOX [facility] SLEEP OBSTRUCTIVE SLEEP APNEA [id number] 11/29/2017 12:57:00 11/29/2017 23:59:59 CLS Outpatient BROOKS MADDOXP [facility] RAD HEADACHES,CERVICAL SPINE STENOSIS [id number] 09/09/2017 02:48:00 09/09/2017 06:05:00 DIS Emergency CALLUM BRISENO MD [facility] ER ABD PAIN [id number] 07/01/2017 13:34:00 07/01/2017 23:59:59 CLS Outpatient AYLEEN SUAREZ DO [facility] CARD SACRILITIS M46.1 [id number] 04/19/2017 19:33:00 04/19/2017 23:04:00 DIS Emergency JULIETTE BECERRA [facility] ER BLURRY VISION,SLURRED SPEECH POST HEAD LAC [id number] 04/17/2017 22:15:00 04/18/2017 01:21:00 DIS Emergency JULIETTE BECERRA [facility] ER HEAD LACERATION AFTER FALL [id number] 11/14/2016 19:55:00 11/15/2016 07:29:00 DIS Outpatient JOSE RUBALCAVA MD [facility] SLEEP OBSTRUCTIVE SLEEP APNEA [id number] 09/28/2016 13:00:00 09/28/2016 23:59:59 CLS Outpatient ERICK LEON AYLEEN Callie [facility] RAD M54.16 [id number] 08/24/2016 09:50:00 08/24/2016 23:59:59 CLS Outpatient BROOKS MADDOXP [facility] RAD R ANKLE PAIN [id number] 07/31/2016 16:04:00 07/31/2016 23:59:59 CLS Outpatient BROOKS MADDOX ANALYTICAL LEAD [facility] RAD BILAT ANKLE PAIN, FALL [id number] 07/15/2016 14:36:00 07/15/2016 23:59:59 CLS Outpatient ISSA SALOMON APRN [facility] RAD NECK PAIN,FALL [id number] 06/16/2016 11:26:00 06/16/2016 23:59:59 CLS Outpatient BROOKS MADDOX ANALYTICAL LEAD [facility] RAD NECK PAIN [id number] 04/03/2016 14:49:00 04/03/2016 23:59:59 CLS Outpatient BROOKS MADDOX ANALYTICAL LEAD [facility] RAD STERNUM PAIN [id number] 03/07/2016 13:38:00 03/07/2016 23:59:59 CLS Outpatient ISSA SALOMON APRN [facility] RAD LOW BACK PAIN [id number] 03/02/2016 20:09:00 03/02/2016 20:15:00 DIS Emergency FINN NO, CALLUM Meeks [facility] ER FALL,ANXIETY [id number] 10/22/2015 00:09:00 10/22/2015 23:59:59 CLS Preadmit BROOKS MADDOXP [facility] SDC VIT B DEFICIENCY [id number] 09/13/2015 15:45:00 10/21/2015 00:01:00 DIS Outpatient BROOKS MADDOXP [facility] SDC VIT B DEFICIENCY [id number] 08/15/2015 16:54:00 08/15/2015 23:59:59 CLS Outpatient BROOKS MADDOX ANALYTICAL LEAD [facility] RAD NECK PAIN [id number] 05/06/2015 13:29:00 07/02/2015 00:01:00 DIS Outpatient BROOKS MADDOX ANALYTICAL LEAD [facility] VIT B DEFICIENCY [id number] 06/25/2015 15:38:00 06/25/2015 23:59:59 CLS Outpatient BROOKS MADDOX ANALYTICAL LEAD [facility] RAD RIGHT FOOT PAIN [id number] 05/23/2015 17:13:00 05/23/2015 23:59:59 CLS Outpatient ROBERT MCKEON R ANALYTICAL LEAD [facility] QUICK [id number] 02/26/2015 13:04:00 03/06/2015 00:01:00 DIS Outpatient BROOKS MADDOX ANALYTICAL LEAD [facility] VIT B DEFICIENCY [id number] 02/22/2015 11:43:00 02/22/2015 12:10:00 DIS Outpatient BROOKS MADDOX ANALYTICAL LEAD [facility] REHAB R KNEE PAIN; R LEG WEAKNESS [id number] 01/08/2015 16:42:00 01/08/2015 23:59:59 CLS Outpatient KIMBERLI MONDRAGON ANALYTICAL LEAD [facility] QUICK [id number] 11/15/2014 00:11:00 11/15/2014 23:59:59 CLS Preadmit BROOKS MADDOX ANALYTICAL LEAD [facility] VIT B DEFICIENCY [id number] 11/14/2014 14:31:00 11/14/2014 00:01:00 DIS Outpatient BROOKS MADDOX ANALYTICAL LEAD [facility] VIT B DEFICIENCY [id number] 06/05/2014 13:02:00 06/24/2014 00:01:00 DIS Outpatient BROOKS MADDOX ANALYTICAL LEAD [facility] VIT B DEFICIENCY [id number] 06/05/2014 13:23:00 06/05/2014 23:59:59 CLS Outpatient BROOKS MADDOX ANALYTICAL LEAD [facility] RAD RT ANKLE PAIN [id number] 12/13/2013 15:29:00 12/13/2013 23:59:59 CLS Outpatient SAILAJA NO, SVETLANA Aguilera [facility] RT RESPIRATORY DISTRESS, ACUTE BRONCHOSPASM [id number] 10/27/2013 13:01:00 11/27/2013 00:01:00 DIS Outpatient VARSHAYONATANBROOKS M ANALYTICAL LEAD [facility] SDC VIT B DEFICIENCY [id number] 05/09/2013 02:23:00 05/09/2013 04:14:00 DIS Emergency FINN NO, CALLUM Meeks [facility] ER LEFT LEG PAIN-FALL [id number] 08/03/2018 06:07:00 Document Registration [id number] 09/15/2012 08:29:00 Document Registration [id number] 07/21/2012 09:36:00 Document Registration [id number] 06/03/2012 06:09:00 Document Registration [id number] 03/07/2012 16:08:00 Document Registration [id number] 02/15/2012 13:54:00 Document Registration [id number] 12/21/2011 14:00:00 Document Registration [id number] 11/23/2011 11:36:00 Document Registration [id number] 06/29/2011 15:31:00 Document Registration [id number] 04/24/2011 20:13:00 Document Registration [id number] 03/12/2011 16:29:00 Document Registration [id number] 02/02/2011 11:28:00 Document Registration [id number] 11/20/2010 14:28:00 Document Registration [id number] 07/07/2010 11:10:00 Document Registration [id number] 05/08/2010 15:39:00 Document Registration [id number] 11/21/2009 10:52:00 Document Registration
== END 2018-08-03 07:04 | disposition home or self-care (01) ==
LOC: EDUNIT# 05:27 → ER 05:29
DX: K21.9 Gastro-esophageal reflux disease without esophagitis (principal); J44.9 Chronic obstructive pulmonary disease, unspecified; G47.30 Sleep apnea, unspecified; I10 Essential (primary) hypertension; G43.909 Migraine, unspecified, not intractable, without status migrainosus; F32.9 Major depressive disorder, single episode, unspecified; Z87.19 Personal history of other diseases of the digestive system; Z90.710 Acquired absence of both cervix and uterus; Z88.2 Allergy status to sulfonamides; Z91.040 Latex allergy status; Z79.51 Long term (current) use of inhaled steroids; Z79.52 Long term (current) use of systemic steroids
CPT/HCPCS: 36415; 71250; 74022; 74176; 80053; 81000; 82150; 83690; 85025; 87088

== ENCOUNTER → 2018-12-23 | Outpatient (CLI) | payer MEDICARE ==
[~2018-12-23] MED LIST changes: +SUCR1ORA5 PO
--- NOTE | 2018-12-27 09:04 | Diagnostic Imaging Report ---
EXAMINATION: Digital mammogram INDICATION: Bilateral screening with 3-D tomosynthesis and CAD. This study was compared to prior exam of 11/23/2011. At this time there are no current complaints. The fibroglandular tissue in both breasts is heterogeneously dense. This does limit the sensitivity of this exam. On the craniocaudad view of the right breast in the lateral aspect of the breast roughly 9 cm from the nipple there is a 1 CM area of increased density. There is no corresponding abnormality seen on the MLO view and this finding may mere be secondary to fibroglandular tissue. However the density does seem to persist on the tomographic images in the CC projection. I would recommend that a compression view of this area be obtained in the CC projection as well as a true lateral view of the right breast for further study. Ultrasound should also be performed. The left breast is unchanged. As on the prior study there are innumerable microcalcifications scattered throughout both breasts. IMPRESSION: Additional mammographic views and ultrasound of the right breast would be recommended for further study. ACR BI-RADS Category 0: Incomplete. (Needs additional imaging evaluation). Result letter will be mailed to the patient. Note: At least 10% of breast cancer is not imaged by mammography. Dictated by: Dictated on workstation # [id number]
== END ==
LOC: RAD 13:24
PROVIDERS: ATTEND Nurse Practitioner Family
DX: Z12.31 Encounter for screening mammogram for malignant neoplasm of breast (principal)
CPT/HCPCS: 77067

== ENCOUNTER → 2019-04-05 | Outpatient (CLI) | payer MEDICARE ==
--- NOTE | 2019-04-05 13:13 | Diagnostic Imaging Report ---
INDICATION: Followup right breast density. COMPARISON: Correlation is made with prior mammograms from 12/23/2018 and 11/23/2011. TECHNIQUE: Unilateral right 2D and 3D diagnostic mammography was performed. This included a repeat conventional CC view as well as spot compression CC and conventional 90 degree lateral views. FINDINGS: Additional views fail to demonstrate a discrete mass. The area of density in the outer right rest is less prominent on today's study and most likely represents superimposed tissue. There are benign calcifications scattered throughout the right breast. The right axilla is unremarkable. IMPRESSION: Additional views fail to demonstrate a discrete mass. The patient may return to routine annual screening mammography. ACR BI-RADS Category 2: Benign findings. Result letter will be mailed to the patient. Note: At least 10% of breast cancer is not imaged by mammography. Dictated by: Dictated on workstation # [id number]
[2019-04-05 13:47] LABS: HEMOGLOBIN 11.7 G/DL (11.5-16.0); MEAN PLATELET VOLUME 8.7 FL (7.4-10.4); RED CELL DISTRIBUTION WIDTH 13.6 % (10.0-14.5)
[2019-04-05 14:08] LABS: ALANINE AMINOTRANSFERASE 26 U/L (0-55); ALBUMIN 4.3 GM/DL (3.2-4.5); ALKALINE PHOSPHATASE 89 U/L (40-136); BILIRUBIN,TOTAL 0.3 MG/DL (0.1-1.0); BUN/CREATININE RATIO 16; CALCIUM 9.5 MG/DL (8.5-10.1); CARBON DIOXIDE 25 MMOL/L (21-32); CHLORIDE 105 MMOL/L (98-107); CHOLESTEROL 158 MG/DL (< 200); CREATININE SERUM 0.81 MG/DL (0.60-1.30); GFR ESTIMATED > 60; GLUCOSE 100 MG/DL (70-105); HDL CHOLESTEROL 59 MG/DL (40-60); POTASSIUM 3.8 MMOL/L (3.6-5.0); SODIUM 140 MMOL/L (135-145); TOTAL PROTEIN 6.8 GM/DL (6.4-8.2); TRIGLYCERIDES 196 MG/DL (<150); VLDL CHOLESTEROL 39 MG/DL (5-40)
== END ==
LOC: RAD 12:33
PROVIDERS: ATTEND Nurse Practitioner Family
DX: R92.2 Inconclusive mammogram (principal)
CPT/HCPCS: 36415; 80053; 80061; 82306; 82607; 83036; 84443; 85027

== ENCOUNTER → 2020-11-12 | Outpatient (CLI) | payer MEDICARE ==
[~2020-11-12] MED LIST changes: -TRAM50TA2; +TRM50T
--- NOTE | 2020-11-13 10:02 | Diagnostic Imaging Report ---
EXAMINATION: Digital mammogram bilateral screening with CAD. INDICATION: Screening. COMPARISON: This study was compared to the prior exams of 04/05/2018 and 12/23/2018. PERSONAL HISTORY: At this time, there are no current complaints. FINDINGS: The fibroglandular tissue in both breasts is heterogeneously dense. This does limit the sensitivity of this exam. Overall, there does not appear to have been any significant change. As noted on the previous study, there are microcalcifications diffusely scattered throughout both breasts. There may be a few new benign-appearing calcifications in the left breast. There is no primary or secondary sign of malignancy noted. IMPRESSION: 1. There is no evidence of malignancy. 2. The patient should have her annual bilateral screening mammogram on schedule in November 2021. ACR BI-RADS Category 1: Negative. Result letter will be mailed to the patient. Note: At least 10% of breast cancer is not imaged by mammography. Dictated by: Dictated on workstation # [id number]
== END ==
LOC: RAD 10:33
PROVIDERS: ATTEND Family Medicine
DX: Z12.31 Encounter for screening mammogram for malignant neoplasm of breast (principal)
CPT/HCPCS: 77063; 77067

== ENCOUNTER 2021-01-13 06:19 | Outpatient (CLI) | payer MEDICARE ==
[~2021-01-13] VITALS: Ht 172.7 cm; Wt 96.7 kg
[2021-01-13] MEDS ORDERED: RT-ALBUINH INH (12:44)
[2021-01-13] MEDS ORDERED: SUCR1TAB PO (12:44)
[2021-01-13] MEDS ORDERED: CYCL10TA9 PO (12:44)
[2021-01-13] MEDS ORDERED: TRAZ-227 PO (12:44)
[2021-01-13] MEDS ORDERED: VENL150C98 PO (12:44)
[2021-01-13] MEDS ORDERED: LINA290C PO (12:44)
[2021-01-13] MEDS ORDERED: MELO10CA3 PO (12:44)
[2021-01-13] MEDS ORDERED: BUSP10TA95 PO (12:44)
[2021-01-13] MEDS ORDERED: QUET150T3 PO (12:44)
[2021-01-13] MEDS ORDERED: LORA1TAB38 PO (12:44)
[2021-01-13] MEDS ORDERED: ACHD5005 PO (12:44)
[2021-01-13] MEDS ORDERED: METO-333 PO (12:44)
[2021-01-13] MEDS ORDERED: LORA-726 PO (12:44)
[2021-01-13] MEDS ORDERED: BUDE9TAB2 PO (12:44)
[2021-01-13] MEDS ORDERED: TIZA-169 PO (12:44)
[2021-01-13] MEDS ORDERED: FLUT1DIS26 IH (12:44)
[2021-01-13] MEDS ORDERED: VITAMIN C (12:46)
[2021-01-13] MEDS ORDERED: VITAMIN D (12:46)
[2021-01-13] MEDS ORDERED: VITAMIN B (12:46)
[2021-01-13] MEDS ORDERED: [UNRECOGNIZED DRUG - CODE] PO (12:46)
[2021-01-15] MEDS ORDERED: TRAM50TA3 PO (14:17)
== END 2021-01-13 12:52 | disposition home or self-care (01) ==
LOC: PREOP 06:19
PROVIDERS: ATTEND Surgery
DX: Z01.818 Encounter for other preprocedural examination (principal)

== ENCOUNTER 2021-01-15 11:55 | Day surgery (SDC) | payer MEDICARE ==
[~2021-01-15] VITALS: Ht 172.7 cm; Wt 96.7 kg
[2021-01-15] VITALS (9 sets, daily range): BP systolic 107–140; BP diastolic 57–80
[~2021-01-15 11:55] MED LIST changes: +ACHD5005 PO; +BUDE9TAB2 PO; +BUSP10TA95 PO; +FLUT1DIS26 IH; +LINA290C PO; +LORA-726 PO; +LORA1TAB38 PO; +MELO10CA3 PO; +METO-333 PO; +QUET150T3 PO; +RT-ALBUINH INH; +SUCR1TAB PO; +TIZA-169 PO; +TRAZ-227 PO; +VENL150C98 PO; +VITAMIN B; +VITAMIN C; +VITAMIN D; +[UNRECOGNIZED DRUG - CODE] PO
[2021-01-15] MEDS ORDERED: fentaNYL INJ 100 MCG/2 ML AMP IV ONE (11:56)
[2021-01-15] MEDS ORDERED: MIDAZOLAM 2 MG/2 ML (VERSED) VIAL INJ ONE (11:56)
--- NOTE | 2021-01-15 12:07 | Progress Note-Pre Operative ---
Pre-Operative Progress Note H&P Reviewed The H&P was reviewed, patient examined and no changes noted. Time Seen by Provider: 12:04 Date H&P Reviewed: Jan 15, 2021 Time H&P Reviewed: 12:04 Pre-Operative Diagnosis: external hemorrhoidal tissue MOISÉS MCGREGOR DO Jan 15, 2021 12:07
[2021-01-15] MEDS ORDERED: LACTATED RINGERS 1,000 ML IV PRN (13:00)
[2021-01-15] MEDS ORDERED: ONDANSETRON 4 MG/2 ML (SDV) Z0FRAN ONE (13:37)
[2021-01-15] MEDS ORDERED: SCOPOLAMINE 1.5 MG (TRANSDERM-SCOP) PATCH ONE (13:37)
[2021-01-15] MEDS ORDERED: FAMOTIDINE 20MG/2ML IV (PEPCID) ONE (13:37)
[2021-01-15] MEDS ORDERED: LIDOCAINE/EPI 1%-1:100,000 (XYLOCAINE) 20ML ONE (13:37)
[2021-01-15] MEDS ORDERED: SCOPOLAMINE 1.5 MG (TRANSDERM-SCOP) PATCH TD ONE (13:45)
[2021-01-15] MEDS ORDERED: FAMOTIDINE 20MG/2ML IV (PEPCID) IVP ONE (13:45)
[2021-01-15] MEDS ORDERED: ONDANSETRON 4 MG/2 ML (SDV) Z0FRAN IVP ONE (13:45)
[2021-01-15] MEDS ORDERED: ceFAZolin INJECTION 1,000 MG ONE (13:53)
--- NOTE | 2021-01-15 14:15 | Progress Note-Post Operative ---
Post-Operative Progess Note Surgeon (s)/Highway Painter Helper (s) Surgeon MOISÉS MCGREGOR DO Highway Painter Helper: SYLVAIN Smith Pre-Operative Diagnosis external hemorrhoidal tissue Post-Operative Diagnosis same pending path Procedure & Operative Findings Date of Procedure 01/15/21 Procedure Performed/Findings Exc of Ext hemorrhoidal tissue Anesthesia Type GET Estimated Blood Loss Estimated blood loss (mL): scant Specimens/Packing Specimens Removed ext hemorhoidal tissue MOISÉS MCGREGOR DO Jan 15, 2021 14:15
[2021-01-15] MEDS ORDERED: TRAM50TA3 PO (14:17)
--- NOTE | 2021-01-15 14:19 | Discharge Inst-Surgical ---
Discharge Inst-Surgical Depart Medication/Instructions New, Converted or Re-Newed RX: Transmitted to Pharmacy Patient Instructions Follow up Appt: Make appointment for 1 week. [phone] Instructions: May shower in 24 hours, tub bath or soaking. Use incentive spirometer at home as directed. No Smoking Skin/Wound Care: Can put lidocaine cream on area, expect some bleeding. Symptoms to Report: Appetite Changes, Extremity Discoloration, Numbness/Tingling, Swelling Increased, Bleeding Excessive, Eyesight Changes, Pain Increased, Urine Color Change, Constipation(Persistent), Fever over 101 degree F, Pain/Pressure in chest, Urinating Difficulty, Cough Up/Vomit Blood, Heart Beat Irreg/Pounding, Pain/Pressure in jaw, Cramps in feet or legs, Lightheadedness, Pain/Pressure in shoulder, Diarrhea(Persistent), Memory Changes Suddenly, Questions/Concerns, Weight gain consecutive days, Dizziness/Fainting, Nausea/Vomiting, Shortness of Breath, Weight gain over 2 pounds If questions or concerns contact your physician Or seek help at emergency department. Activity Activity as Tolerated: Yes Driving Instructions: No Driving/Refer to Dr. Vides Discharge Diet: No Restrictions (increase fluids and fiber) Diet After 24 Hours: Clear Liquid if Nauseous If Any Problems/Questions/Issu: Contact Your Physician, Go to Emergency Room Skin/Wound Care Infection Signs and Symptoms: Increased Redness, Foul Odor of Wound, Increased Drainage, Skin Itchy or Has a Rash, Increased Swelling, Temperature Above 101 F Bathing Instructions: Shower Stitches/Bertha/Dermabond Dis: Care of MOISÉS Valenzuela DO Jan 15, 2021 14:19
[2021-01-15] MEDS ORDERED: HYDROmorphone 2 MG/ML VIAL (DILAUDID) IV ONE (14:30)
[2021-01-15] MEDS ORDERED: ONDANSETRON 4 MG/2 ML (SDV) Z0FRAN IVP PRN (14:30)
--- NOTE | 2021-01-15 15:37 | Anesthesia-General Post-Op ---
General Patient Condition Mental Status/LOC: Same as Preop Cardiovascular: Satisfactory Nausea/Vomiting: Absent Respiratory: Satisfactory Pain: Controlled Complications: Absent Post Op Complications Complications None Follow Up Care/Instructions Patient Instructions None needed. Anesthesia/Patient Condition Patient Condition Patient is doing well, no complaints, stable vital signs, no apparent adverse anesthesia problems. No complications reported per nursing. [place] [facility] [place] ZUHAIR JARRETT CRNA Jan 15, 2021 15:37
--- NOTE | 2021-01-16 01:58 | OPERATIVE REPORT ---
DATE OF SERVICE: 01/15/2021 PREOPERATIVE DIAGNOSIS: External hemorrhoidal tissue. POSTOPERATIVE DIAGNOSIS: External hemorrhoidal tissue, pending pathology. PROCEDURE: Excision of external hemorrhoidal tissue at the 12 o'clock, 7 o'clock and 6 o'clock positions. ANESTHESIA: LMA. SURGEON: Elías Thorpe DO PHOSPHATIC FERTILIZER SUPERVISOR: SALVADOR Smith. SPECIMEN: Hemorrhoidal tissue. BLOOD LOSS: Scant. FLUIDS: Per anesthesia. POSTOPERATIVE CONDITION: Stable. INDICATION FOR PROCEDURE: The patient is a 55-year-old female who had some external hemorrhoids, some of them were very large, one of them removed. We had a discussion. She actually had them circumferentially and I told her we can only take them off half because she has increased risk of stricturing and we do not want her to have anal stricture. FINDINGS: The patient had some long external hemorrhoidal tissues, kind of dangling down, mostly on the right side when the patient was in lithotomy. She also had some external hemorrhoidal tissue on the left, we left this alone. PROCEDURE NOTE: After informed consent was obtained, the patient was brought to the operating room, placed on the table in the lithotomy position. She was sterilely prepped and draped in normal fashion. Ischial tuberosity blocks were performed as well as a local at the peritoneum in the perineal area and then around at the 9 o'clock and 6 o'clock positions. She had a large dangling external hemorrhoidal tissue at about the 7 o'clock position. This was grasped and then taken off with a Harmonic scalpel. There were then 2 small ones just around the 11 o'clock position. These were grasped and taken off with the Harmonic scalpel and then, there was another one at the 6 o'clock position. This was grasped and took this off with the Harmonic scalpel. Scant bleeding. Elected to close the skin edges with 3-0 chromic, 3 [id number] sutures were used. Area was cleaned and dried, and the patient then transferred to recovery room in stable condition. Sponge, instrument and needle count correct at the end of the case. Job ID: [id number] DocumentID: [id number] Dictated Date: 01/15/2021 14:23:21 Concrete Mixer Operator Date: 01/16/2021 00:28:26 Dictated By: ELÍAS THORPE DO
== END 2021-01-15 15:45 ==
LOC: SDC 11:55
PROVIDERS: ATTEND Surgery
DX: K64.4 Residual hemorrhoidal skin tags (principal); K62.0 Anal polyp; I10 Essential (primary) hypertension; J44.9 Chronic obstructive pulmonary disease, unspecified; G47.33 Obstructive sleep apnea (adult) (pediatric); F41.9 Anxiety disorder, unspecified; F32.9 Major depressive disorder, single episode, unspecified; G43.909 Migraine, unspecified, not intractable, without status migrainosus; K21.9 Gastro-esophageal reflux disease without esophagitis; K50.90 Crohn's disease, unspecified, without complications; Z79.899 Other long term (current) drug therapy; Z79.51 Long term (current) use of inhaled steroids
CPT/HCPCS: 87081

== ENCOUNTER 2021-04-02 05:37 | Outpatient (CLI) | payer MEDICARE ==
[~2021-04-02] VITALS: Ht 172.7 cm; Wt 97.7 kg
[~2021-04-02 05:37] MED LIST changes: +TRAM50TA3 PO
== END 2021-04-03 19:22 | disposition home or self-care (01) ==
LOC: PREOP 05:37
PROVIDERS: ATTEND Surgery
DX: Z01.818 Encounter for other preprocedural examination (principal)

== ENCOUNTER 2021-04-09 07:18 | Day surgery (SDC) | payer MEDICARE ==
[2021-04-09] VITALS (10 sets, daily range): BP systolic 134–156; BP diastolic 73–97
[~2021-04-09] VITALS: Ht 172.7 cm; Wt 97.7 kg
[2021-04-09] MEDS ORDERED: LACTATED RINGERS 1,000 ML IV PRN (07:30)
[2021-04-09] MEDS ORDERED: ceFAZolin 2 GM IV Premixed 50 ML IV ONE (07:30)
[2021-04-09] MEDS ORDERED: LIDOCAINE/EPI 1%-1:200,000 (XYLOCAINE) 30 ML VIAL ONE (09:18)
[2021-04-09] MEDS ORDERED: fentaNYL INJ 100 MCG/2 ML AMP ONE (09:38)
[2021-04-09] MEDS ORDERED: SEVOFLURANE (ULTANE) 15 ML INHAL SOLN ONE (09:38)
[2021-04-09] MEDS ORDERED: ONDANSETRON 4 MG/2 ML (SDV) Z0FRAN ONE (09:38)
[2021-04-09] MEDS ORDERED: proPOfol 200 MG/20 ML (DIPRIVAN) VIAL IV ONE (09:38)
[2021-04-09] MEDS ORDERED: LIDOCAINE PF 2% 5 ML (XYLOCAINE) VIAL ONE (09:38)
[2021-04-09] MEDS ORDERED: MIDAZOLAM 2 MG/2 ML (VERSED) VIAL ONE (09:39)
--- NOTE | 2021-04-09 09:51 | Progress Note-Pre Operative ---
Pre-Operative Progress Note H&P Reviewed The H&P was reviewed, patient examined and no changes noted. Time Seen by Provider: 09:48 Date H&P Reviewed: Apr 09, 2021 Time H&P Reviewed: 09:48 Pre-Operative Diagnosis: Ext hemorrhoidal tissue with rectal pain MOISÉS MCGREGOR DO Apr 09, 2021 09:51
--- NOTE | 2021-04-09 11:26 | Progress Note-Post Operative ---
Post-Operative Progess Note Surgeon (s)/Associate Professor Of Mathematics (s) Surgeon MOISÉS MCGREGOR DO Associate Professor Of Mathematics: SYLVAIN Bergeron Pre-Operative Diagnosis Ext hemorrhoidal tissue with rectal pain Post-Operative Diagnosis same plus anal fissure Procedure & Operative Findings Date of Procedure 04/09/21 Procedure Performed/Findings Exc Ext hemorrhoidal tissue Anesthesia Type LMA Estimated Blood Loss Estimated blood loss (mL): scant Specimens/Packing Specimens Removed ext hemorrrhoidal tissue MOISÉS MCGREGOR DO Apr 09, 2021 11:26
--- NOTE | 2021-04-09 11:28 | Discharge Inst-Surgical ---
Discharge Inst-Surgical Depart Medication/Instructions New, Converted or Re-Newed RX: Other (use ibuprofen and tylenol for pain) Patient Instructions Follow up Appt: Make appointment for 1 week. [phone] Instructions: No lifting greater than 20 pounds. No strenuous activity. May shower in 24 hours, no tub bath or soaking. Use incentive spirometer at home as directed. No Smoking Skin/Wound Care: May remove bandages in am. You need to leave the Dermabond on incision it will fall off on it's own. Symptoms to Report: Appetite Changes, Extremity Discoloration, Numbness/Tingling, Swelling Increased, Bleeding Excessive, Eyesight Changes, Pain Increased, Urine Color Change, Constipation(Persistent), Fever over 101 degree F, Pain/Pressure in chest, Urinating Difficulty, Cough Up/Vomit Blood, Heart Beat Irreg/Pounding, Pain/Pressure in jaw, Cramps in feet or legs, Lightheadedness, Pain/Pressure in shoulder, Diarrhea(Persistent), Memory Changes Suddenly, Questions/Concerns, Weight gain consecutive days, Dizziness/Fainting, Nausea/Vomiting, Shortness of Breath, Weight gain over 2 pounds If questions or concerns contact your physician Or seek help at emergency department. Activity Driving Instructions: No Driving/Refer to Diet Discharge Diet: No Restrictions (increase fluids and fiber) Diet After 24 Hours: Clear Liquid if Nauseous If Any Problems/Questions/Issu: Contact Your Physician, Go to Emergency Room Skin/Wound Care Infection Signs and Symptoms: Increased Redness, Foul Odor of Wound, Increased Drainage, Skin Itchy or Has a Rash, Increased Swelling, Temperature Above 101 F Bathing Instructions: Tub (and sitz baths), [place]er MOISÉS MCGREGOR DO Apr 09, 2021 11:28
[2021-04-09] MEDS ORDERED: HYDROmorphone 2 MG/ML VIAL (DILAUDID) IV ONE (11:45)
[2021-04-09] MEDS ORDERED: ONDANSETRON 4 MG/2 ML (SDV) Z0FRAN IVP PRN (11:45)
[2021-04-09] MEDS ORDERED: TRM50T PO (13:20)
--- NOTE | 2021-04-09 15:06 | Anesthesia-General Post-Op ---
General Patient Condition Mental Status/LOC: Same as Preop Cardiovascular: Satisfactory Nausea/Vomiting: Absent Respiratory: Satisfactory Pain: Controlled Complications: Absent Post Op Complications Complications None Follow Up Care/Instructions Patient Instructions None needed. Anesthesia/Patient Condition Patient Condition Patient is doing well, no complaints, stable vital signs, no apparent adverse anesthesia problems. No complications reported per nursing. D/C home per [facility] [place] Criteria: Yes ZUHAIR JARRETT CRNA Apr 09, 2021 15:05
--- NOTE | 2021-04-10 03:42 | OPERATIVE REPORT ---
DATE OF SERVICE: 04/09/2021 PREOPERATIVE DIAGNOSIS: Rectal pain and external hemorrhoids. POSTOPERATIVE DIAGNOSES: Rectal pain and external hemorrhoids and anal fissure. PROCEDURE: Excision of external hemorrhoid. SURGEON: Elías Thorpe DO SECURITY GUARDS DISPATCHER: Parth Peraza MS3. ANESTHESIA: LMA. SPECIMEN: External hemorrhoidal tissue. BLOOD LOSS: Scant. FLUIDS: Per anesthesia. POSTOPERATIVE CONDITION: Stable. INDICATION FOR PROCEDURE: The patient is a 55-year-old female, who has some external hemorrhoidal tissue pain at this area and wanted to get these removed, already had half of them removed and one of the other half removed. FINDINGS: The patient had some external hemorrhoidal tissue. When she was in the lithotomy position, most of it from about the 2 o'clock to 6 o'clock position. She also had an anal fissure. PROCEDURE NOTE: After informed consent was obtained, the patient was brought to the operating room. She was placed on table in lithotomy position. She was sterilely prepped and draped in normal fashion. Local lidocaine was used to perform a regional block to the ischial tuberosity and then as well as around the area, approximately 20 mL was used, I then using an Harmonic scalpel, grasped the external hemorrhoid tissue and taken right off of the skin clamping and then activated the device and then taking this off passing this external hemorrhoid tissue off the table. There were 2 smaller pieces of external hemorrhoidal tissue. There were from the 12 o'clock, 2 o'clock position. These were grasped and also cut off with the Harmonic scalpel. The larger area that was taken off, then elected to close with some 2-0 chromic suture. Two [id number] sutures and one simple interrupted suture. Area was then cleaned and dried, dressing placed. The patient then transferred to recovery room in stable condition. Sponge, instrument and needle count correct at the end of the case. Job ID: [id number] DocumentID: [id number] Dictated Date: 04/09/2021 19:59:03 Cover Inspector Date: 04/10/2021 03:42:45 Dictated By: ELÍAS THORPE DO [facility]
== END 2021-04-09 13:30 | disposition home or self-care (01) ==
LOC: SDC 07:18
PROVIDERS: ATTEND Surgery
DX: K62.89 Other specified diseases of anus and rectum (principal); K64.4 Residual hemorrhoidal skin tags; K60.2 Anal fissure, unspecified; K21.9 Gastro-esophageal reflux disease without esophagitis; I10 Essential (primary) hypertension; J44.9 Chronic obstructive pulmonary disease, unspecified; G47.33 Obstructive sleep apnea (adult) (pediatric); M79.7 Fibromyalgia; E78.5 Hyperlipidemia, unspecified; K51.90 Ulcerative colitis, unspecified, without complications; F41.9 Anxiety disorder, unspecified; F32.A Depression, unspecified; Z79.899 Other long term (current) drug therapy; Z79.891 Long term (current) use of opiate analgesic; Z99.89 Dependence on other enabling machines and devices; Z80.9 Family history of malignant neoplasm, unspecified
CPT/HCPCS: 87081; 88304

== ENCOUNTER → 2022-06-03 | Outpatient (CLI) | payer MEDICARE ==
[~2022-06-03] MED LIST changes: +CYCL10TA25 PO; +QUET150T14 PO; -QUET150T3 PO; +TRM50T PO
--- NOTE | 2022-06-03 16:41 | Diagnostic Imaging Report ---
EXAMINATION: Lumbar spine radiographs, 3 views. COMPARISON: MRI lumbar spine September 28, 2016. HISTORY: 56-year-old female, low back pain. Fall. FINDINGS: There is a fracture of the L2 vertebral body at the level of the superior endplate with minimal vertebral body height loss and no identified retropulsed fracture fragment. There are mild endplate degenerative related changes at L1-L2 and L2-L3. There are mild bilateral facet degenerative changes at L5-S1. The sacroiliac joints are unremarkable in appearance. There are vascular calcifications noted. IMPRESSION: 1. Fracture of the L2 vertebral body in the region of the superior endplate with minimal height loss and no retropulsed fracture fragment. This fracture is new since September 28, 2016 but otherwise of uncertain exact age although is suspected to be acute. 2. Mild disc degenerative changes at L1-L2 and L2-L3. 3. Mild bilateral facet degenerative changes at L5-S1. Dictated by: Dictated on workstation # [id number]
--- NOTE | 2022-06-03 16:42 | Diagnostic Imaging Report ---
EXAMINATION: Sacroiliac joint radiographs, 3 views. COMPARISON: None. HISTORY: 56-year-old female, low back pain. Fall. FINDINGS: The sacroiliac joints are normally aligned and without degenerative change. There is no radiographically visible fracture of the sacrum. The hips are not dislocated. There is no joint space loss of either hip. IMPRESSION: Unremarkable radiographic evaluation of the sacrum and bilateral sacroiliac joints. Dictated by: Dictated on workstation # [id number]
== END ==
LOC: RAD 15:23
PROVIDERS: ATTEND Family Medicine
DX: S32.029A Unspecified fracture of second lumbar vertebra, initial encounter for closed fracture (principal); M47.816 Spondylosis without myelopathy or radiculopathy, lumbar region; M47.817 Spondylosis without myelopathy or radiculopathy, lumbosacral region
CPT/HCPCS: 72100; 72202